=== PATIENT | male | born 1935 | race Caucasian/White ===

== ENCOUNTER → 2017-07-17 09:45 | Outpatient (CLI) | payer MEDICARE, SELFPAY ==
[2017-07-17 11:48] LABS: Hemoglobin A1c 7.1 % (4.2-6.3)
[2017-07-17 11:51] LABS: Creatinine, Urine (random) < 13.00 mg/dL (NO RANGE EST.); Microalbumin,Random Urine < 5.0 mg/L (NO RANGE EST.)
[2017-07-17 11:58] LABS: AST(SGOT) 43 U/L (15-37); Alanine Aminotransfer ALT/SGPT 61 U/L (16-61); Anion Gap 11 (5-15); BUN 21 mg/dL (7-18); BUN/Creat Ratio 15.3 RATIO (10-20); Calcium,Total 9.4 mg/dL (8.5-10.1); Chloride 102 mmol/L (98-107); Creatinine, Serum 1.37 mg/dL (0.70-1.30); EST Glomerular Filtration Rate 53 mL/min (>60); Est Glom Filt Rate - Afr Amer 64 mL/min (>60); Glucose 132 mg/dL (70-110); Potassium 3.9 mmol/L (3.5-5.1); Sodium Level 138 mmol/L (136-145)
== END ==
PROVIDERS: Family Provider Family Medicine; PCP Family Medicine; Visit Provider Internal Medicine Endocrinology, Diabetes & Metabolism
DX: E11.65 Type 2 diabetes mellitus with hyperglycemia (principal)
CPT/HCPCS: 36415; 80048; 82043; 82570; 83036; 84450; 84460

== ENCOUNTER → 2017-08-23 08:14 | Outpatient (CLI) | payer MEDICARE, SELFPAY ==
--- NOTE | 2017-08-23 08:25 | RAD_ITS ---
PROCEDURE: Fluoroscopic guided Hip Injection DATE: August 23, 2017. INDICATION: Male, 82 years old. Left hip pain. PHYSICIAN: Jon Waters M.D. MEDICATIONS: 6 mg of betamethasone and 3 cc of 1% lidocaine. 2% Lidocaine administered subcutaneously for local anesthesia. ACCESS SITE: Left hip. NEEDLE: 22-gauge spinal needle. FLUOROSCOPY TIME (if supplied): (0:45) minutes/seconds FINDINGS: The risks, benefits, and alternatives to the procedure were explained to the patient. The specific risks of bleeding, infection, and neurovascular injury were detailed and accepted. Witnessed informed consent was obtained. A 22-gauge spinal needle was positioned under radiographic fluoroscopic localization. Approximately 2 cc of Gastroview 300 instilled for localization purposes. Medication was then injected. The patient tolerated the procedure well without any immediate complications. The patient was placed supine with head elevated and returned to the floor in stable condition. RAD/Inj/Asp [place] Jt Should/Hip/Knee IMPRESSION: 1. Successful fluoroscopic guided hip injection. Electronically Signed: Jon Waters MD at 10:20 EST Tel [phone], Service support ,
== END ==
PROVIDERS: Family Provider Family Medicine; PCP Family Medicine; Visit Provider Specialist
DX: M16.12 Unilateral primary osteoarthritis, left hip (principal)
CPT/HCPCS: 20610; 77002; Q9967; J0702

== ENCOUNTER → 2017-09-07 08:56 | Outpatient (CLI) | payer MEDICARE, SELFPAY ==
[2017-09-07 10:33] LABS: ALB/GLOB Ratio 1.2 RATIO (0.9-2.4); AST(SGOT) 37 U/L (15-37); Alanine Aminotransfer ALT/SGPT 54 U/L (16-61); Albumin, Serum 3.8 g/dL (3.2-5.0); Alkaline Phosphatase 40 U/L (45-117); Anion Gap 7 (5-15); BUN 18 mg/dL (7-18); BUN/Creat Ratio 14.3 RATIO (10-20); Bilirubin, Direct 0.21 mg/dL (0.00-0.30); Calcium,Total 9.4 mg/dL (8.5-10.1); Chloride 103 mmol/L (98-107); Cholesterol 155 mg/dL (200); Creatinine, Serum 1.26 mg/dL (0.70-1.30); EST Glomerular Filtration Rate 59 mL/min (>60); Est Glom Filt Rate - Afr Amer 71 mL/min (>60); Globulin 3.2 g/dL (2.2-4.2); Glucose 99 mg/dL (74-106); High Density Lipoprotein 38 mg/dL; Sodium Level 139 mmol/L (136-145); Triglycerides 171 mg/dL; Very Low Density Lipoprotein 34 mg/dL (5-40)
== END ==
PROVIDERS: Family Provider Family Medicine; PCP Family Medicine; Visit Provider Physician Assistant Medical
DX: I10 Essential (primary) hypertension (principal); E78.5 Hyperlipidemia, unspecified; I25.10 Atherosclerotic heart disease of native coronary artery without angina pectoris
CPT/HCPCS: 36415; 80053; 80061; 82248

== ENCOUNTER → 2017-11-14 09:44 | Outpatient (CLI) | payer MEDICARE, SELFPAY ==
[2017-11-14 11:26] LABS: Hemoglobin A1c 7.1 % (4.2-6.3)
[2017-11-14 11:28] LABS: AST(SGOT) 38 U/L (15-37); Alanine Aminotransfer ALT/SGPT 45 U/L (16-61); Anion Gap 12 (5-15); BUN 22 mg/dL (7-18); BUN/Creat Ratio 16.1 RATIO (10-20); Calcium,Total 9.2 mg/dL (8.5-10.1); Chloride 104 mmol/L (98-107); Cholesterol 164 mg/dL (200); Creatinine, Serum 1.37 mg/dL (0.70-1.30); EST Glomerular Filtration Rate 53 mL/min (>60); Est Glom Filt Rate - Afr Amer 64 mL/min (>60); Glucose 106 mg/dL (74-106); High Density Lipoprotein 35 mg/dL; Potassium 4.1 mmol/L (3.5-5.1); Sodium Level 141 mmol/L (136-145); Triglycerides 260 mg/dL; Very Low Density Lipoprotein 52 mg/dL (5-40)
== END ==
PROVIDERS: Family Provider Family Medicine; PCP Family Medicine; Visit Provider Internal Medicine Endocrinology, Diabetes & Metabolism
DX: E11.65 Type 2 diabetes mellitus with hyperglycemia (principal); E78.2 Mixed hyperlipidemia
CPT/HCPCS: 36415; 80048; 80061; 83036; 84450; 84460

== ENCOUNTER → 2017-12-08 12:46 | Outpatient (CLI) | payer MEDICARE, SELFPAY | PROVIDERS: Family Provider Family Medicine; PCP Family Medicine; Visit Provider Internal Medicine Critical Care Medicine | DX: G47.33 Obstructive sleep apnea (adult) (pediatric) (principal) | CPT/HCPCS: 98960; G0463 ==

== ENCOUNTER 2018-01-08 18:44 | Emergency (ER) | payer MEDICARE, SELFPAY ==
[2018-01-08 18:45] VITALS: BP 164/96; PULSE 79; RESP 16; TEMP 36.6; O2SAT 96; BMI 40.3
--- NOTE | 2018-01-08 19:00 | ED.VISSUMM ---
- ER Visit Summary Date of Service: 01/08/18 Chief Complaint: [Injury right shoulder] History of Present Illness: The patient is a 82 M [presents the emergency department complaint of injury to the right shoulder that occurred earlier today when he was taking out the trash. Patient states that he lifted a trash bag into a container and immediately felt something give. Patient having a hard time lifting his arm up above his head now. Patient is right-hand dominant.] Physical Examination: [HEENT-PERRLA, EOMI. Cranial nerves II through XII grossly intact. TMs clear. Mucous membranes moist. No adenopathy. Cardiovascular-regular rate and rhythm without murmur or ectopy Lungs-clear to auscultation, chest wall stable without crepitus or subcu emphysema Abdomen-normoactive bowel sounds, soft, nontender, no rebound or rigidity, no peritoneal signs. Extremities-intact ?4, normal range of motion, normal pulses, atraumatic]. Right shoulder-no deformity noted. Patient has some mild diffuse tenderness over the anterior glenohumeral joint. Patient has pain with abduction and has discomfort attempting to resist adduction. Patient has pain with trying to resist internal rotation. He is neurovascular intact. Test Results: [X-rays of the right shoulder] show degenerative changes but no acute fractures or dislocations. Emergency Department Course and Treatment: Patient was given one Masterson in the emergency department and given a sling [] Treatment Plan: [Patient to follow-up with Dr. Gayle who he has seen in the past for orthopedics. Patient understands he may need further imaging such as possibly MRI to evaluate further] Disposition: [Discharged home in stable condition] Impression: [Right shoulder sprain-possible internal derangement] This note was generated with [employer] dictation software. It may contain incorrect words, spelling, and punctuation that were not noted in review of the chart prior to signing ED Disposition - Plan for ED Patient: Chief Complaint: Upper Extremity Injury Referrals: Soham Jones III, MD [Primary Care Provider] -
--- NOTE | 2018-01-08 19:05 | RAD_ITS ---
STUDY: X-RAY - RIGHT SHOULDER REASON FOR EXAM: Male, 82 years old. Right shoulder pain TECHNIQUE: 4 view(s) of the shoulder. COMPARISON: None. FINDINGS: There is mild degenerative arthrosis of the glenohumeral articulation. There is degenerative arthrosis of the acromioclavicular joint without inferior osseous spur formation. Normal acromion. Normal humeral head and visualized proximal humerus. The soft tissue structures are unremarkable. Normal visualized pulmonary apex. RAD/Shoulder min 2 Views IMPRESSION: Degenerative changes without acute findings Electronically Signed: Omer Coronel DO at 19:21 EDT Tel , Service support ,
[2018-01-08] MEDS: HYDROcodone Bitartrate/Apap 5/325 Tablet PO (19:12)
--- NOTE | 2018-01-08 19:33 | ED.DEP ---
ED Disposition - Plan for ED Patient: Chief Complaint: Upper Extremity Injury Instructions: ED Sprain Shoulder Prescriptions: Hydrocodone/Acetaminophen [Abington 5-325 Tablet] 1 - 2 ea PO 4X/DAY PRN PRN 3 Days #12 tab PRN Reason: Pain Referrals: Soham Jones III, MD [Primary Care Provider] - Capo Gayle MD [STAFF PHYSICIAN] - 3-5 Days
[2018-01-08 19:59] VITALS: BP 159/100; PULSE 74; RESP 16; O2SAT 95
== END 2018-01-08 20:00 | disposition home or self-care (01) ==
LOC: ED 19:07
PROVIDERS: Emergency Provider Emergency Medicine; Family Provider Family Medicine; PCP Family Medicine
DX: S43.401A Unspecified sprain of right shoulder joint, initial encounter (principal); X50.9XXA Other and unspecified overexertion or strenuous movements or postures, initial encounter; Y93.9 Activity, unspecified; Y92.9 Unspecified place or not applicable; I25.10 Atherosclerotic heart disease of native coronary artery without angina pectoris; E11.9 Type 2 diabetes mellitus without complications; I10 Essential (primary) hypertension; E78.00 Pure hypercholesterolemia, unspecified; Z79.82 Long term (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 of aspirin; Z79.4 Long term (current) use of insulin; Z79.84 Long term (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 of oral hypoglycemic drugs; Z79.899 Other long term (current) drug therapy
CPT/HCPCS: 73030; 99283

== ENCOUNTER → 2018-03-01 09:19 | Outpatient (CLI) | payer MEDICARE, SELFPAY ==
[2018-03-01 10:16] LABS: Hemoglobin A1c 6.3 % (4.2-6.3)
[2018-03-01 10:36] LABS: AST(SGOT) 22 U/L (15-37); Alanine Aminotransfer ALT/SGPT 39 U/L (16-61); Anion Gap 8 (5-15); BUN 26 mg/dL (7-18); Calcium,Total 9.7 mg/dL (8.5-10.1); Chloride 103 mmol/L (98-107); Creatinine, Serum 1.53 mg/dL (0.70-1.30); EST Glomerular Filtration Rate 47 mL/min (>60); Est Glom Filt Rate - Afr Amer 57 mL/min (>60); Glucose 194 mg/dL (74-106); Potassium 4.6 mmol/L (3.5-5.1); Sodium Level 139 mmol/L (136-145)
== END ==
PROVIDERS: Family Provider Family Medicine; PCP Family Medicine; Visit Provider Internal Medicine Endocrinology, Diabetes & Metabolism
DX: E11.65 Type 2 diabetes mellitus with hyperglycemia (principal)
CPT/HCPCS: 36415; 80048; 83036; 84450; 84460

== ENCOUNTER → 2018-03-05 09:21 | Outpatient (CLI) | payer MEDICARE, SELFPAY ==
[2018-03-05 09:59] LABS: Anion Gap 10 (5-15); BUN 19 mg/dL (7-18); BUN/Creat Ratio 13.9 RATIO (10-20); Calcium,Total 9.4 mg/dL (8.5-10.1); Chloride 104 mmol/L (98-107); Creatinine, Serum 1.37 mg/dL (0.70-1.30); EST Glomerular Filtration Rate 53 mL/min (>60); Est Glom Filt Rate - Afr Amer 64 mL/min (>60); Glucose 135 mg/dL (74-106); Potassium 4.1 mmol/L (3.5-5.1); Sodium Level 139 mmol/L (136-145)
[2018-03-05 10:07] LABS: BNP,B-Type NATRIURETIC PEPTIDE 52.4 pg/mL (0-100)
== END ==
PROVIDERS: Family Provider Family Medicine; PCP Family Medicine; Visit Provider Nurse Practitioner Acute Care
DX: R06.00 Dyspnea, unspecified (principal); R06.02 Shortness of breath
CPT/HCPCS: 36415; 80048; 83880

== ENCOUNTER → 2018-03-13 12:28 | Outpatient (CLI) | payer MEDICARE, SELFPAY ==
--- NOTE | 2018-03-13 12:47 | ECHOD_ITS ---
Reason For Study: Dyspnea/SOB Procedure This was a 2D Doppler, Color Flow transthoracic echocardiogram. The study was technically difficult. Exam performed in department. Left Ventricle Normal LV size. Left ventricular systolic function is normal. The estimated ejection fraction is 55 %. Diastolic function is indeterminate. No regional wall motion abnormalities noted. Right Ventricle Normal RV size. Normal systolic function. Atria The left atrium is mildly enlarged. Normal right atrium. No doppler evidence for ASD. Mitral Valve There is no mitral annular calcification. Normal mitral valve. Trivial mitral valve insufficiency. Tricuspid Valve Normal tricuspid valve. Trivial tricuspid valve insufficiency. Unable to estimate RV systolic pressure/pulmonary artery pressure due to technically difficult study. Aortic Valve Trisinus/trileaflet aortic valve. Mild focal aortic valve calcification. Pulmonic Valve The pulmonic valve is not well visualized. Great Vessels Normal sized aortic root. Pericardium/Pleural No pericardial effusion. MMode/2D Measurements & Calculations LVIDd: 4.9 cm IVSd: 1.2 cm LVOT diam: 2.0 cm LVIDs: 3.4 cm LVPWd: 0.92 cm LVOT area: 3.2 cm2 RVDd: 3.5 cm FS: 31.3 % Ao root diam: 3.1 cm LAV(MOD-bp): 56.3 ml LA A4 area: 20.9 cm2 LA dimension: 4.1 cm LAV(MOD-bp) Indexed: 26.5 ml/m2 LAV(MOD-sp2): 42.8 ml LAV(MOD-sp4): 60.5 ml RA A4 area: 14.5 cm2 Time Measurements MV dec time: 0.16 sec Doppler Measurements & Calculations MV E max geo: 58.3 cm/sec Lat Peak E' Geo: 6.7 cm/sec Med Peak E' Geo: 5.3 cm/sec MV A max geo: 78.0 cm/sec E/E' lat: 8.7 E/E' med: 11.0 MV E/A: 0.75 MV V2 max: 74.4 cm/sec MV P1/2t max geo: 59.9 cm/sec Ao V2 max: 105.9 cm/sec MV max P.2 mmHg MV P1/2t: 64.2 msec Ao max P.5 mmHg MV V2 mean: 37.7 cm/sec MV dec slope: 273.4 cm/sec2 Ao V2 mean: 70.4 cm/sec MV mean P.68 mmHg MVA(P1/2t): 3.4 cm2 Ao mean P.3 mmHg MV V2 VTI: 20.1 cm Ao V2 VTI: 21.3 cm MVA(VTI): 2.6 cm2 CANDY(I,D): 2.4 cm2 CANDY(V,D): 2.6 cm2 LV V1 max: 86.0 cm/sec SV(LVOT): 51.2 ml PA V2 max: 60.9 cm/sec LV V1 max P.0 mmHg LV V1 mean P.3 mmHg LV V1 mean: 52.6 cm/sec LV V1 VTI: 16.1 cm Interpretation Summary The study was technically difficult. Left ventricular systolic function is normal. The estimated ejection fraction is 55 %. The left atrium is mildly enlarged. Trivial mitral valve insufficiency. Trivial tricuspid valve insufficiency. Mild focal aortic valve calcification. Unable to estimate RV systolic pressure/pulmonary artery pressure due to technically difficult study. Diastolic function is indeterminate. Ordering Physician: Lela Sherman Referring Physician: Lela Sherman Performed By: William Kelly RCS
[2018-03-13 12:49] VITALS: PULSE 103; PULSE 108; PULSE 111; PULSE 113; PULSE 121; PULSE 78; PULSE 79; PULSE 93; O2SAT 92; O2SAT 93; O2SAT 94; O2SAT 96; O2SAT 97
--- NOTE | 2018-03-13 15:41 | PCM.PSN.6M ---
PSN 6 Minute Walk Test - 6 Minute Walk Test 6 Minute Walk Test: 6 Minute Walk Test PSN:6-Minute Walk Test Start: 03/13/18 12:49 Freq: Status: Active Protocol: RESP.6MINW Document 03/13/18 12:49 JANNETTE (Rec: 03/13/18 12:51 JANNETTE [id number]) 6 Minute Walk Test Date Performed 03/13/18 Time Performed 12:35 Height 5 ft 4 in Weight: 108.862 kg Weight in Pounds 240.[address]: Lela Sherman Assistive device used: None Pre-test Oxygen Delivery Method Room Air Pulse Ox (%) 97 Pulse Rate (60-100 beats/min) 79 Dyspnea Janae Scale (0-10) 1 Exertion Janae Scale (6-20) 6 1st minute Oxygen Delivery Method Room Air Pulse Ox (%) 96 Pulse Rate (60-100 beats/min) 93 2nd minute Oxygen Delivery Method Room Air Pulse Ox (%) 94 Pulse Rate (60-100 beats/min) 103 H 3rd minute Oxygen Delivery Method Room Air Pulse Ox (%) 93 Pulse Rate (60-100 beats/min) 108 H 4th minute Oxygen Delivery Method Room Air Pulse Ox (%) 94 Pulse Rate (60-100 beats/min) 113 H 5th minute Oxygen Delivery Method Room Air Pulse Ox (%) 93 Pulse Rate (60-100 beats/min) 111 H 6th minute Oxygen Delivery Method Room Air Pulse Ox (%) 92 Pulse Rate (60-100 beats/min) 121 H Dyspnea Janae Scale (0-10) 5 Exertion Janae Scale (6-20) 14 Post-test Oxygen Delivery Method Room Air Pulse Ox (%) 97 Pulse Rate (60-100 beats/min) 78 Full Laps Walked 13 Partial Lap, Number of Tiles Walked 30 Total Distance Walked (ft) 797 - Interpretation Interpretation: The patient was able to ambulate 797 feet over the course of 6 minutes on room air with no assistive devices or breaks. The patient did have significant desaturation from a baseline of 97%, to as low as 92% with ambulation. Patient did have significant tachycardia with a peak heart rate of 121 bpm. These findings are consistent with a cardiovascular limitation exercise tolerance. - Recommendations Recommendations: No supplemental oxygen is indicated at this time. However, patient should be followed closely given level of desaturation.
== END ==
PROVIDERS: Family Provider Family Medicine; PCP Family Medicine; Visit Provider Nurse Practitioner Acute Care
DX: R06.02 Shortness of breath (principal); R06.00 Dyspnea, unspecified
CPT/HCPCS: 93306; 94618

== ENCOUNTER 2018-03-14 14:00 | Outpatient (RCR) | payer MEDICARE, SELFPAY ==
--- NOTE | 2018-02-13 17:11 | HP.PTEVAL_ITS ---
Patient's Visit Information DARREN REDDY is a 82 year old M referred to Physical Therapy by Jewel Carmona with a diagnosis of back and hip pain. Date of Evaluation: 02/13/18 Physical Therapist: Maureen Retana - Visit Plan Frequency: 2x /Week Duration: 4 Weeks Plan: 2X/ week for 4 weeks - Subjective Subjective: Pt reports that he has R and L hip problems and will need replaced. He did get a shot in the L hip back in August and R hip 3 weeks ago and the pain has gotten better. hoping that AT will help. Pt got to the place that he could not lift his L leg and now only the R leg bothers him. Stairs: he uses a railing and has to be careful and is able to alternate. Any extra walking bothers him. He can not get out of a chair to get out of a chair. He has a messed up shoulder as well and needs a shoulder replacement. He is able to sleep on his L side. He is also seeing Dr Gayle. - Pain R hip pain Pain Intensity (Out of 10): 5 L hip pain Pain Intensity (Out of 10): 2 - Objective Gait: Walks with WBOS and short stride. Able to heel and toe raise holding onto the hallway railing. LE MMT: hip flex B 4-/5, Knee ext B 4/5, Knee flex B 4/5, Pt is able to do a full ROM bridge. Sit to stand: able to stand without UE support and suprised himself that he could do it. Stairs: Able to go up stairs with 1 rail recip (weakness present on the r) and descends stairs with 1 rail leading with the R and 2 feet to a stair. Hip flexion AROM to 90 degrees. - Goals Goal 1:: I HEP Goal Time Frame: 4-6 Weeks Goal 2:: Be able to go up and down stairs recip with 1 rail Goal Time Frame: 4-6 Weeks Goal 3:: Decrease B hip pain to 1/10 with ADL's Goal Time Frame: 4-6 Weeks - Rehabilitation Potential Rehabilitation Potential: Good - Anticipated Interventions Patient/Client Instruction: Educate patient on: Plan of Care For the Purpose of:: To decrease pain, To increase ROM, To improve nutrient delivery to tissue, To improve muscle performance and motor function, To improve ability to perform ADL's, To increase tolerance to activity/condition/ position, To improve performance and independence with ADL's, To improve gait and locomotor functions, To increase flexibility/ROM Therapeutic Exercise to Include: Strength training, Balance training, Postural training, Flexibilty training, Gait and locomotor training, Active ROM, Dynamic Lumbar Stabilization For the Purpose of:: To decrease pain, To increase ROM, To improve muscle performance and motor function, To improve ability to perform ADL's, To increase tolerance to activity/condition/position, To improve ability of physical actions for home/community/work/leisure, To improve gait and locomotor functions, To improve health of tissue, To increase flexibility/ROM, To improve balance Functional Training to Include: Gait training Comments: stairs For the Purpose of:: To improve gait and locomotor functions, To improve safety with gait Thank you for the opportunity to evaluate your patient. For Medicare and Medicare HMO plans, please review the plan of care and approve it. It will need to be FAXED BACK to us at [phone] for Medicare purposes. Please let me know if there are questions or concerns regarding this plan of care. Physician Signature: Date:
--- NOTE | 2018-03-14 14:22 | HP.PTDCSUM ---
HP - PT D/C Summary It has been my pleasure to treat DARREN REDDY under orders from Jewel Carmona, for the diagnosis of back and hip pain for a total of 9 visit(s). Discharge Date: Please see the following information for a summary of their discharge status. - Subjective Subjective: Right hip pain is still pretty bad- helps when in the water but not after he gets back out. Worst: 6/10 Agg: always hurts Eases: take pain medication. Plans to make an apt with Dr. Gayle. He is planning to have a total hip replacement on the right. The pain limits his ability to perform most of his ADL's. - Pain R hip pain Pain Intensity (Out of 10): 6 L hip pain Pain Intensity (Out of 10): 0 Lumbar Spine Pain Intensity (Out of 10): 6 - Objective Objective/Function: Posture: FH, RS, Increased kyphosis- Gait: Walks with WBOS and short stride slow selvin. Able to heel and toe raise with UE support. LE MMT: hip flex B 4/5, Knee ext B 4/5, Knee flex B 4/5, Pt is able to do a full ROM bridge. Sit to stand: able to stand without UE support Stairs: Able to go up stairs with 1 rail recip (weakness present on the r) and descends stairs with 1 rail leading with the R and 2 feet to a stair. Flex: HS: severe restriction. - Goals Goal 1:: I HEP Goal Progress: Progressing Goal 2:: Be able to go up and down stairs recip with 1 rail Goal Progress: Not Progressing Goal 3:: Decrease B hip pain to 1/10 with ADL's Goal Progress: Not Progressing - Plan Plan: Discharge- return to MD for further evaluation - D/C Information If there are questions or concerns regarding this patient's physical therapy, please feel free to call me at [phone]. Thank you for the referral of this patient. Sincerely, Emily Jang
== END 2018-03-14 14:51 | disposition home or self-care (01) ==
LOC: PT 14:00
PROVIDERS: Family Provider Family Medicine; PCP Family Medicine; Visit Provider Anesthesiology Pain Medicine
DX: R06.00 Dyspnea, unspecified (principal)
CPT/HCPCS: 36415; 80048; 83880; 97113; 97161; 97164

== ENCOUNTER → 2018-04-09 08:29 | Outpatient (CLI) | payer MEDICARE, SELFPAY ==
[2018-04-09 10:46] LABS: AST(SGOT) 31 U/L (15-37); Alanine Aminotransfer ALT/SGPT 49 U/L (16-61); Albumin, Serum 3.8 g/dL (3.2-5.0); Alkaline Phosphatase 35 U/L (45-117); Bilirubin, Direct 0.16 mg/dL (0.00-0.30); Cholesterol 161 mg/dL (200); Globulin 3.3 g/dL (2.2-4.2); High Density Lipoprotein 35 mg/dL; Protein, Total 7.1 g/dL (6.4-8.2); Triglycerides 279 mg/dL; Very Low Density Lipoprotein 56 mg/dL (5-40)
== END ==
PROVIDERS: Family Provider Family Medicine; PCP Family Medicine; Referring Provider Physician Assistant Medical; Visit Provider Physician Assistant Medical
DX: E78.5 Hyperlipidemia, unspecified (principal)
CPT/HCPCS: 36415; 80061; 80076

== ENCOUNTER → 2018-05-21 06:32 | Outpatient (CLI) | payer MEDICARE, SELFPAY ==
[2018-05-14 15:59] VITALS: BMI 41.7
[2018-05-21 09:33] LABS: Hematocrit 41.5 % (40-54); Hemoglobin 13.3 g/dl (13.0-16.5); Mean Corpuscular Hgb 29.6 pg (27.0-32.0); Mean Corpuscular Volume 92.4 fL (80-94); Platelet Count 188 K/mm3 (150-450); RBC Distribution Width CV 13.8 % (11.6-14.6); RBC Distribution Width SD 46.6 fl (35.1-43.9); Red Blood Count 4.49 M/mm3 (4.6-6.2); White Blood Count 4.6 K/mm3 (4.4-11.0)
[2018-05-21 09:35] LABS: Scan Indicated on CBC? Y/N NO
[2018-05-21 09:59] LABS: Anion Gap 10 (5-15); BUN 27 mg/dL (7-18); BUN/Creat Ratio 17.8 RATIO (10-20); Calcium,Total 9.3 mg/dL (8.5-10.1); Chloride 105 mmol/L (98-107); Creatinine, Serum 1.52 mg/dL (0.70-1.30); EST Glomerular Filtration Rate 47 mL/min (>60); Est Glom Filt Rate - Afr Amer 57 mL/min (>60); Glucose 184 mg/dL (74-106); Potassium 4.5 mmol/L (3.5-5.1); Sodium Level 138 mmol/L (136-145)
[2018-05-21 10:08] LABS: BNP,B-Type NATRIURETIC PEPTIDE 35.5 pg/mL (0-100)
--- OUTSIDE RECORDS SUMMARY | 2018-07-14 04:27 | XMS RPT_ITS ---
:1935 Author Organization OHIP Support Name Relationship Address Phone R Unavailable Unavailable Unavailable SWARTZENTRUBER, J LUIS Unavailable [address] + [place] [address] R Unavailable Unavailable Unavailable SWARTZENTRUBER, J LUIS Unavailable [address] + [place] [address] R Unavailable Unavailable Unavailable SWARTZENTRUBER, J LUIS Unavailable [address] + [place] [address] R Unavailable Unavailable Unavailable SWARTZENTRUBER, J LUIS Unavailable [address] + [place] [address] R Unavailable Unavailable Unavailable SWARTZENTRUBER, J LUIS Unavailable [address] + [place] [address] R Unavailable Unavailable Unavailable SWARTZENTRUBER, J LUIS Unavailable [address] + [place] [address] R Unavailable Unavailable Unavailable SWARTZENTRUBER, J LUIS Unavailable [address] + [place] [address] R Unavailable Unavailable Unavailable SWARTZENTRUBER, J LUIS Unavailable [address] + [place] [address] R Unavailable Unavailable Unavailable SWARTZENTRUBER, J LUIS Unavailable [address] + [place] [address] R Unavailable Unavailable Unavailable SWARTZENTRUBER, J LUIS Unavailable [address] + [place] [address] R Unavailable Unavailable Unavailable SWARTZENTRUBER, J LUIS Unavailable [address] + [place] [address] R Unavailable Unavailable Unavailable SWARTZENTRUBER, J LUIS Unavailable [address] + [place] [address] R Unavailable Unavailable Unavailable SWARTZENTRUBER, J LUIS Unavailable [address] + [place] [address] R Unavailable Unavailable Unavailable SWARTZENTRUBER J LUIS Unavailable [address] + [place] [address] R Unavailable Unavailable Unavailable SWARTZENTRUBER, J LUIS Unavailable [address] + [place] [address] R Unavailable Unavailable Unavailable SWARTZENTRUBER J LUIS Unavailable [address] + [place] [address] R Unavailable Unavailable Unavailable SWARTZENTRUBER, J LUIS Unavailable [address] + [place] [address] R Unavailable Unavailable Unavailable SWARTZENTRUBER, J LUIS Unavailable [address] + [place] [address] R Unavailable Unavailable Unavailable SWARTZENTRUBER, J LUIS Unavailable [address] + [place] [address] R Unavailable Unavailable Unavailable SWARTZENTRUBER, J LUIS Unavailable [address] + [place] [address] R Unavailable Unavailable Unavailable SWARTZENTRUBER, J LUIS Unavailable [address] + [place] [address] R Unavailable Unavailable Unavailable SWARTZENTRUBER J LUIS Unavailable [address] + [place] [address] R Unavailable Unavailable Unavailable SWARTZENTRUBER, J LUIS Unavailable [address] + [place] [address] R Unavailable Unavailable Unavailable SWARTZENTRUBER J LUIS Unavailable [address] + [place] [address] R Unavailable Unavailable Unavailable SWARTZENTRUBER, J LUIS Unavailable [address] + [place] [address] Care Team Providers Name Role Phone NATHANAEL JONES III Attending Unavailable CEBUL IIINATHANAEL Referring Unavailable CEBUL IIINATHANAEL Referring Unavailable ALEX ELLISON Referring Unavailable CEBUL IIINATHANAEL Attending Unavailable Libia SINGH (PA-C) Attending Unavailable Amreico Nazario D.O. Attending Unavailable CebuNathanael marley III Referring Unavailable Americo Nazario D.O. Attending Unavailable Americo Nazario D.O. Referring Unavailable Cebul III, Nathanael Primary Care Unavailable Olivia Jenkins Attending Unavailable Olivia Jenkins Referring Unavailable Cebul III, Nathanael Primary Care Unavailable Yobani Durbin Attending Unavailable Lela Sherman Referring Unavailable Lela Sherman Attending Unavailable Cebul III, Nathanael Referring Unavailable Lela Sherman Attending Unavailable Cebul III, Nathanael Primary Care Unavailable Capo Gayle Attending Unavailable Capo Gayle Referring Unavailable Cebul III, Nathanael Primary Care Unavailable Audelia Espinoza Attending Unavailable Cebul III, Nathanael Referring Unavailable Cebul III, Nathanael Primary Care Unavailable Audelia Espinoza Attending Unavailable Audelia Espinoza Referring Unavailable Cebul III, Nathanael Primary Care Unavailable Olivia Jenkins Attending Unavailable Olivia Jenkins Referring Unavailable Cebul III, Nathanael Primary Care Unavailable Rachael Morales Attending Unavailable Americo Nazario D.O. Attending Unavailable Cebul III, Nathanael Referring Unavailable Americo Nazario D.O. Attending Unavailable Cebul III, Nathanael Primary Care Unavailable Cebul III, Nathanael Primary Care Unavailable Pat Courtney Attending Unavailable Jewel Carmona Attending Unavailable Jewel Carmona Referring Unavailable Cebul III, Nathanael Primary Care Unavailable Olivia Jenkins Attending Unavailable Olivia Jenkins Referring Unavailable Cebul III, Nathanael Primary Care Unavailable Lela Sherman Attending Unavailable Cebul III, Nathanael Referring Unavailable Cebul III, Nathanael Primary Care Unavailable Lela Sherman Attending Unavailable Sherman, Lela Referring Unavailable Cebul III, Nathanael Primary Care Unavailable Lela Sherman Attending Unavailable Lela Sherman Referring Unavailable Cebul III, Nathanael Primary Care Unavailable Junior Jurado Attending Unavailable Lela Sherman Referring Unavailable Audelia Espinoza Attending Unavailable Audelia Espinoza Referring Unavailable Cebul III, Nathanael Primary Care Unavailable David Ashton Attending Unavailable Cebul III, Nathanael Referring Unavailable Audelia Espinoza Attending Unavailable Cebul III, Nathanael Referring Unavailable Audelia Espinoza Attending Unavailable Audelia Espinoza Referring Unavailable Cebul III, Nathanael Primary Care Unavailable Zach Ashtonril Consulting Unavailable Cebul III, Nathanael Primary Care Unavailable Geo Cristina Attending Unavailable PROBLEMS PROBLEMS DATE TYPE CONDITION / CODE ATTENDING STATUS SOURCE 06/05/2018 Unknown R06.02 - Shortness of Sherman, Active [facility] breath / [facility] R06.02(ICD-10) Hospital Repository 05/15/2018 Unknown I25.10 - Espinoza, Active [facility] Atherosclerotic heart Audelia [facility] disease of [facility] coronary artery Repository without angina pectoris / I25.10(ICD-10) 05/15/2018 Unknown R07.9 - Chest pain, Olga, Active [facility] unspecified / Audelia [facility] R07.9(ICD-10) Hospital Repository 04/19/2018 Unknown I10 - Essential Poli, David Active [facility] (primary) Community hypertension / Hospital I10(ICD-10) Repository 04/19/2018 Unknown Z98.61 - Coronary Poli, Lotus Active [facility] angioplasty status / Community Z98.61(ICD-10) Hospital Repository 04/19/2018 Unknown E78.00 - Pure Poli, Advid Active [facility] hypercholesterolemia, Community unspecified / Hospital E78.00(ICD-10) Repository 03/14/2018 Unknown R06.00 - Dyspnea, Basali, Ayman Active [facility] unspecified / Community R06.00(ICD-10) Hospital Repository 03/01/2018 Unknown E11.65 - Type 2 lOivia Jenkins Active [facility] diabetes mellitus Community with hyperglycemia / Hospital E11.65(ICD-10) Repository 01/08/2018 Unknown S43.409A - UngPat moody Active [facility] Unspecified sprain of Community unspecified shoulder Hospital joint, initial Repository encounter / S43.409A(ICD-10) 11/14/2017 Unknown E78.2 - Mixed Olivia Jenkins Active [facility] hyperlipidemia / Community E78.2(ICD-10) Hospital Repository 09/25/2017 Active Cough / R05(ICD-10) NA Active [facility] [place] Repository 09/07/2017 Unknown E78.5 - Espinoza, Active [facility] Hyperlipidemia, Audelia [facility] unspecified / Hospital E78.5(ICD-10) Repository 07/31/2017 Active Unilateral primary NA Active [facility] osteoarthritis, Clinic Main unspecified hip / [place] M16.10(ICD-10) Repository 07/31/2017 Active Impingement syndrome NA Active [facility] of right shoulder / Clinic Main M75.41(ICD-10) [place] Repository PROCEDURES PROCEDURES No Procedure Records FoundRESULTS RESULTS PROGRESS Observed: 06/05/2018 Status: COMPLETED Source: [place] 11:22 AM [facility] [place] REPOSITORY HNO ID: [id number] Author: Libia Billingsley (Filiberto) Francisco Service: (none) Author Type: Physician Appointment Scheduler Type: Progress Notes Filed: 06/05/2018 12:39 PM Note Text: 82 year old male with c/o bruising on left upper arm and medial elbow. Picking up keys off car floor board, fel something snap, immediate pain. Concerned about appearance. Able to move arm without difficulty. Still has strength. Taking Tramadol from . 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 07/07/2014 - Calculus of kidney - Controlled type 2 diabetes mellitus with stage 3 chronic kidney disease, without long-term current use of insulin (HCC) 03/26/2018 - Diaphragmatic hernia without mention of obstruction or gangrene - Diverticulitis of colon (without mention of hemorrhage)(562.11) - Esophageal reflux - Essential hypertension, benign 01/28/2014 - Family history of colon cancer in mother 12/22/2014 - Family history of malignant neoplasm of gastrointestinal tract - GERD (gastroesophageal reflux disease) 04/19/2010 - History of left heart catheterization 06/30/2015 [facility] - see scanned documents - Hyperlipidemia LDL goal < 100 04/26/2011 - Hypothyroidism 08/21/2010 - Lumbago - Lumbar disc disease with radiculopathy 10/09/2013 - Morbid obesity (HCC) 04/23/2012 - DANYELL (obstructive sleep apnea) - Osteoarthritis of hip 02/16/2010 - Other diseases of lung, not elsewhere classified PULMONARY NODULE - Pure hypercholesterolemia - S/P PTCA (percutaneous transluminal coronary angioplasty) - Snoring - Unspecified asthma(493.90) - Unspecified constipation - Unspecified hemorrhoids without mention of complication - Vitamin D deficiency 07/05/2013 PAST SURGICAL HISTORY Procedure Laterality Date - COLONOSCOP W/ OR W/O [facility] SPEC 07/30/03 Colonoscopy - COLONOSCOP W/ OR W/O [facility] SPEC 10/28/08 - COLONOSCOP W/ OR W/O [facility] SPEC 01/29/15 Colonoscopy - ECHO 06/24/2015 [facility] - see scanned documents - EGD W/O OR W/BRUSH/WASH 09/27/2006 EGD - EGD W/O OR W/BRUSH/WASH 04/27/2010 EGD - EGD W/O OR W/BRUSH/WASH 04/15/16 EGD - LAPAROSCOPY, SURGICAL, APPENDECTOMY 05/02/16 - POLYSOMNOGRAM 06/2001 - PULMONARY FUNCTION TEST 10/19/02 - REPAIR INCIS HERNIA W MESH 03/26/07 - REPAIR INCISIONAL HERNIA,REDUCIBLE 03/26/07 - STENT PLACEMENT maker Social History Marital status: Spouse name: J Luis Years of education: Number of children: 6 Occupational History Occupation Employer Comment RETIRED [employer] RETIRED [employer] Social History Main Topics Smoking status: Former Smoker Packs/day: 1.00 Years: 5.00 Types: Cigarettes Quit date: 10/17/1964 Smokeless tobacco: Never Used Alcohol use: No Drug use: No ACTIVE PROBLEM LIST Esophageal Reflux Asthma Calculus of Kidney Unspecified Chronic Liver Disease Without Mention of Alcohol Hypertrophy of Prostate With Urinary Obstruction and Other Lower Urinary Tract Symptoms (Luts) 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 Gerd (Gastroesophageal Reflux Disease) Diaphragmatic hernia without mention of obstructio Hypothyroidism Hyperlipidemia With Target Ldl Less Than 100 Morbid Obesity (Hcc) Vitamin D Deficiency Lumbar Disc Disease With Radiculopathy Essential hypertension, benign Bph (Benign Prostatic Hypertrophy) With Urinary Retention Family History of Colon Cancer in Mother Iron Deficiency Anemia Secondary to Inadequate Dietary Iron Intake Elevated Liver Function Tests Controlled Type 2 Diabetes Mellitus With Stage 3 Chronic Kidney Disease, Without Long-Term Current Use of Insulin (Hcc) Current Outpatient Prescriptions: aspirin, enteric coated (ASPIRIN, ENTERIC COATED) 81 mg EC tablet Take 81 mg by mouth once daily. Disp: Rfl: Cholecalciferol, Vitamin D3, (VITAMIN D-3) 2,000 unit cap Take 1 tablet by mouth once daily. Disp: Rfl: clopidogrel (PLAVIX) 75 mg tablet Take 75 mg by mouth once daily. Disp: Rfl: finasteride (PROSCAR) 5 mg tablet Take 5 mg by mouth once daily. Disp: Rfl: furosemide (LASIX) 40 mg tablet Take 40 mg by mouth once daily. Disp: Rfl: insulin 70/30 NPH/regular units/mL (HUMULIN 70/30, NOVOLIN 70/30) 52 units SQ ac breakfast and 38 units SQ ac supper (Patient taking differently: 50 units SQ ac breakfast and 40 units SQ ac supper ) Disp: Rfl: 0 levothyroxine (SYNTHROID) 50 mcg tablet Take 1 tablet by mouth once daily. Disp: 90 tablet Rfl: 4 losartan (COZAAR) 50 mg tablet Take 1 tablet by mouth once daily. Disp: Rfl: 0 metFORMIN (GLUCOPHAGE) 500 mg tablet Take 2 tablets by mouth twice daily with meals. Disp: Rfl: naproxen (NAPROSYN) 500 mg tablet Take 1 tablet by mouth twice daily as needed for Pain. Take with food. Disp: 60 tablet Rfl: [address] (PROTONIX) 40 mg tablet TAKE ONE TABLET BY MOUTH ONCE DAILY Disp: 90 tablet Rfl: 1 pravastatin (PRAVACHOL) 20 mg tablet Take 1 tablet by mouth once daily. Disp: Rfl: 0 tamsulosin ER (FLOMAX) 0.4 mg cp24 Take 1 capsule by mouth daily at bedtime. (Patient not taking: Reported on 03/26/2018 ) Disp: 30 capsule Rfl: 1 No current facility-administered medications for this visit. BP CONTROLLED (<130/80) due on 08/20/1955 DTAP,TDAP,TD(1 - Tdap) due on 11/18/2005 URINE ALBUMIN:CREATININE RATIO due on 06/30/2017 SERUM CREATININE due on 03/29/2018 Component Latest Ref Rng AND Units 11/14/2017 03/01/2018 05/21/2018 Glucose 74 - 106 MG/DL 106 194 (A) 184 (A) Sodium 136 - 145 MEQ/L 141 139 138 Potassium 3.5 - 5.1 MEQ/L 4.1 4.6 4.5 Chloride 98 - 107 MEQ/L 104 103 105 BICARBONATE 28.0 23.0 Anion Gap 12 8 10 Urea Nitrogen 6 - 20 mg/dL 26 (A) 27 (A) Creatinine 0.6 - 1.3 MG/DL 1.37 (A) 1.53 (A) 1.52 (A) GFR mL/MIN 53 47 47 GFR AFR AMER mL/MIN 64 57 57 Calcium 8.8 - 10.5 MG/DL 9.2 9.7 9.3 9/22/17 a1c 7.2% EXAM: BP 110/80 (BP Site: Right Arm, BP Position: Sitting, BP Cuff Size: Large Adult) Pulse 80 Temp 36.1 ?C (97 ?F) Resp 28 Wt 110.7 kg (244 lb) BMI 43.22 kg/m? Pleasant obese in no acute distress. Alert and oriented all spheres. Normal affect and cognition. Speech normal. No deficits to learning or comprehension. Skin warm, dry, pink to lips and nailbeds. Normal turgor. Respirations regular and unlabored. Left upper arm with dark purplish black over most of anterior mid upper arm and medial elbow. Tender in upper arm over biceps. + bulge with resisted flexion. Good resistance strength on biceps. Pain with resistance to pronation. Extrem: no clubbing, cyanosis, edema. Extremities are warm and pink with prompt capillary refill. ASSESSMENT/PLAN: 1. Rupture long head biceps tendon, left, initial encounter - ICD9: 840.8, ICD10: S46.112A Ice, rest. Recheck in 5-7 days. May continue tylenol and/ or tramadol as needed 2. Stage 3 chronic renal impairment associated with type 2 diabetes mellitus (HCC) - ICD9: 250.40, 585.3, ICD10: E11.22, N18.3 worsening control - Discussed diabetic education issues of avoiding NSIADS with patient. Current on Mobic. Should discuss with ortho 3. Controlled type 2 diabetes mellitus with stage 3 chronic kidney disease, without long-term current use of insulin (HCC) - ICD9: 250.40, 585.3, ICD10: E11.22, N18.3 F/u 1 week as needed FILIBERTO Keller Observed: 06/05/2018 Status: COMPLETED Source: [place] 11:00 AM [facility] REPOSITORY [facility] OLMAN REDDY ([id number]) 1935 M Date Time Provider Department 06/05/18 11:00 AM Libia SINGH (FILIBERTO) RUEL During your visit today, we recorded the following information about you: Temperature Pulse Respiration Blood pressure 97 degrees 80/minute 28/minute 110/80 Weight 110.7 kg M Carole Singh PA-C 06/05/2018 12:39 PM Signed 82 year old male with c/o bruising on left upper arm and medial elbow. Picking up keys off car floor board, fel something snap, immediate pain. Concerned about appearance. Able to move arm without difficulty. Still has strength. Taking Tramadol from . 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 07/07/2014 - Calculus of kidney - Controlled type 2 diabetes mellitus with stage 3 chronic kidney disease, without long-term current use of insulin (HCC) 03/26/2018 - Diaphragmatic hernia without mention of obstruction or gangrene - Diverticulitis of colon (without mention of hemorrhage)(562.11) - Esophageal reflux - Essential hypertension, benign 01/28/2014 - Family history of colon cancer in mother 12/22/2014 - Family history of malignant neoplasm of gastrointestinal tract - GERD (gastroesophageal reflux disease) 04/19/2010 - History of left heart catheterization 06/30/2015 [facility] - see scanned documents - Hyperlipidemia LDL goal < 100 04/26/2011 - Hypothyroidism 08/21/2010 - Lumbago - Lumbar disc disease with radiculopathy 10/09/2013 - Morbid obesity (HCC) 04/23/2012 - DANYELL (obstructive sleep apnea) - Osteoarthritis of hip 02/16/2010 - Other diseases of lung, not elsewhere classified PULMONARY NODULE - Pure hypercholesterolemia - S/P PTCA (percutaneous transluminal coronary angioplasty) - Snoring - Unspecified asthma(493.90) - Unspecified constipation - Unspecified hemorrhoids without mention of complication - Vitamin D deficiency 07/05/2013 PAST SURGICAL HISTORY Procedure Laterality Date [facility] Colonoscopy - COLONOSCOP W/ OR W/O [facility] SPEC 10/28/08 - COLONOSCOP W/ OR W/O [facility] SPEC 01/29/15 Colonoscopy - ECHO 06/24/2015 [facility] - see scanned documents - EGD W/O OR W/BRUSH/WASH 09/27/2006 EGD - EGD W/O OR W/BRUSH/WASH 04/27/2010 EGD - EGD W/O OR W/BRUSH/WASH 04/15/16 EGD - LAPAROSCOPY, SURGICAL, APPENDECTOMY 05/02/16 - POLYSOMNOGRAM 06/2001 - PULMONARY FUNCTION TEST 10/19/02 - REPAIR INCIS HERNIA W MESH 03/26/07 - REPAIR INCISIONAL HERNIA,REDUCIBLE 03/26/07 - STENT PLACEMENT maker Social History Marital status: Spouse name: J Luis Years of education: Number of children: 6 Occupational History Occupation Employer Comment RETIRED [employer]IRED [employer] Social History Main Topics Smoking status: Former Smoker Packs/day: 1.00 Years: 5.00 Types: Cigarettes Quit date: 10/17/1964 Smokeless tobacco: Never Used Alcohol use: No Drug use: No ACTIVE PROBLEM LIST Esophageal Reflux Asthma Calculus of Kidney Unspecified Chronic Liver Disease Without Mention of Alcohol Hypertrophy of Prostate With Urinary Obstruction and Other Lower Urinary Tract Symptoms (Luts) 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 Gerd (Gastroesophageal Reflux Disease) Diaphragmatic hernia without mention of obstructio Hypothyroidism Hyperlipidemia With Target Ldl Less Than 100 Morbid Obesity (Hcc) Vitamin D Deficiency Lumbar Disc Disease With Radiculopathy Essential hypertension, benign Bph (Benign Prostatic Hypertrophy) With Urinary Retention Family History of Colon Cancer in Mother Iron Deficiency Anemia Secondary to Inadequate Dietary Iron Intake Elevated Liver Function Tests Controlled Type 2 Diabetes Mellitus With Stage 3 Chronic Kidney Disease, Without Long-Term Current Use of Insulin (Hcc) Current Outpatient Prescriptions: aspirin, enteric coated (ASPIRIN, ENTERIC COATED) 81 mg EC tablet Take 81 mg by mouth once daily. Disp: Rfl: Cholecalciferol, Vitamin D3, (VITAMIN D-3) 2,000 unit cap Take 1 tablet by mouth once daily. Disp: Rfl: clopidogrel (PLAVIX) 75 mg tablet Take 75 mg by mouth once daily. Disp: Rfl: finasteride (PROSCAR) 5 mg tablet Take 5 mg by mouth once daily. Disp: Rfl: furosemide (LASIX) 40 mg tablet Take 40 mg by mouth once daily. Disp: Rfl: insulin 70/30 NPH/regular units/mL (HUMULIN 70/30, NOVOLIN 70/30) 52 units SQ ac breakfast and 38 units SQ ac supper (Patient taking differently: 50 units SQ ac breakfast and 40 units SQ ac supper ) Disp: Rfl: 0 levothyroxine (SYNTHROID) 50 mcg tablet Take 1 tablet by mouth once daily. Disp: 90 tablet Rfl: 4 losartan (COZAAR) 50 mg tablet Take 1 tablet by mouth once daily. Disp: Rfl: 0 metFORMIN (GLUCOPHAGE) 500 mg tablet Take 2 tablets by mouth twice daily with meals. Disp: Rfl: naproxen (NAPROSYN) 500 mg tablet Take 1 tablet by mouth twice daily as needed for Pain. Take with food. Disp: 60 tablet Rfl: [address] (PROTONIX) 40 mg tablet TAKE ONE TABLET BY MOUTH ONCE DAILY Disp: 90 tablet Rfl: 1 pravastatin (PRAVACHOL) 20 mg tablet Take 1 tablet by mouth once daily. Disp: Rfl: 0 tamsulosin ER (FLOMAX) 0.4 mg cp24 Take 1 capsule by mouth daily at bedtime. (Patient not taking: Reported on 03/26/2018 ) Disp: 30 capsule Rfl: 1 No current facility-administered medications for this visit. BP CONTROLLED (<130/80) due on 08/20/1955 DTAP,TDAP,TD(1 - Tdap) due on 11/18/2005 URINE ALBUMIN:CREATININE RATIO due on 06/30/2017 SERUM CREATININE due on 03/29/2018 Component Latest Ref Rng AND Units 11/14/2017 03/01/2018 05/21/2018 Glucose 74 - 106 MG/DL 106 194 (A) 184 (A) Sodium 136 - 145 MEQ/L 141 139 138 Potassium 3.5 - 5.1 MEQ/L 4.1 4.6 4.5 Chloride 98 - 107 MEQ/L 104 103 105 BICARBONATE 28.0 23.0 Anion Gap 12 8 10 Urea Nitrogen 6 - 20 mg/dL 26 (A) 27 (A) Creatinine 0.6 - 1.3 MG/DL 1.37 (A) 1.53 (A) 1.52 (A) GFR mL/MIN 53 47 47 GFR AFR AMER mL/MIN 64 57 57 Calcium 8.8 - 10.5 MG/DL 9.2 9.7 9.3 03/10/17 a1c 7.2% EXAM: BP 110/80 (BP Site: Right Arm, BP Position: Sitting, BP Cuff Size: Large Adult) Pulse 80 Temp 36.1 ?C (97 ?F) Resp 28 Wt 110.7 kg (244 lb) BMI 43.22 kg/m? Pleasant obese in no acute distress. Alert and oriented all spheres. Normal affect and cognition. Speech normal. No deficits to learning or comprehension. Skin warm, dry, pink to lips and nailbeds. Normal turgor. Respirations regular and unlabored. Left upper arm with dark purplish black over most of anterior mid upper arm and medial elbow. Tender in upper arm over biceps. + bulge with resisted flexion. Good resistance strength on biceps. Pain with resistance to pronation. Extrem: no clubbing, cyanosis, edema. Extremities are warm and pink with prompt capillary refill. ASSESSMENT/PLAN: 1. Rupture long head biceps tendon, left, initial encounter - ICD9: 840.8, ICD10: S46.112A Ice, rest. Recheck in 5-7 days. May continue tylenol and/ or tramadol as needed 2. Stage 3 chronic renal impairment associated with type 2 diabetes mellitus (HCC) - ICD9: 250.40, 585.3, ICD10: E11.22, N18.3 worsening control - Discussed diabetic education issues of avoiding NSIADS with patient. Current on Mobic. Should discuss with ortho 3. Controlled type 2 diabetes mellitus with stage 3 chronic kidney disease, without long-term current use of insulin (HCC) - ICD9: 250.40, 585.3, ICD10: E11.22, N18.3 F/u 1 week as needed FILIBERTO Keller PA-C 06/05/2018 11:33 AM Signed Recommended to apply ice to affected area for 20 minutes, as often as every hour. Ice should not be applied directly to skin. Rest the arm. Recheck in a week. If pain or worsening please come in as needed. Referring Provider: SELF [[id number]] Allergies As of Date: 06/05/2018 Noted Allergy Reaction ACTOS (PIOGLITAZONE HCL) 2006 Comments: abdomenal pain Date Reviewed: 06/05/2018 Reviewed by: Estrella Morin LPN - Fully Assessed Reason for Visit: Arm Pain [137] Cmt: felt a pop in left upper arm 4 days ago while reaching down for keys, arm bruised AND painful Primary Visit Diagnosis:Rupture long head biceps tendon, left, initial encounter [S46.112A] Other Visit Diagnoses:Stage 3 chronic renal impairment associated with type 2 diabetes mellitus (HCC) [E11.22, N18.3] Controlled type 2 diabetes mellitus with stage 3 chronic kidney disease, without long- term current use of insulin (HCC) [E11.22, N18.3] Order(s):meloxicam (MOBIC) 7.5 mg tabletTake 1 tablet by mouth once daily. Take with food. Per Dr. Gayle orthoDisp: Rfl: Prescriptions as of 06/05/2018 Sig: ASPIRIN 81 MG TABLET,DELAYED * Take 81 mg by mouth once neeraj* CHOLECALCIFEROL (VITAMIN D3) * Take 1 tablet by mouth once d* CLOPIDOGREL 75 MG TABLET Take 75 mg by mouth once neeraj* FINASTERIDE 5 MG TABLET Take 5 mg by mouth once daily. FUROSEMIDE 40 MG TABLET Take 40 mg by mouth once neeraj* INSULIN HUMAN U-100 NPH-REGUL* 52 units SQ ac breakfast and * Patient taking differently: 50 units SQ ac breakfast and * LEVOTHYROXINE 50 MCG TABLET Take 1 tablet by mouth once d* LOSARTAN 50 MG TABLET Take 1 tablet by mouth once d* METFORMIN 500 MG TABLET Take 2 tablets by mouth twice* PANTOPRAZOLE 40 MG TABLET,DEL* TAKE ONE TABLET BY MOUTH ONCE* PRAVASTATIN 20 MG TABLET Take 1 tablet by mouth once d* MELOXICAM 7.5 MG TABLET Take 1 tablet by mouth once d* TAMSULOSIN 0.4 MG CAPSULE Take 1 capsule by mouth daily* Patient not taking: Reported on 03/26/2018 Problem List As Of Date 06/05/2018 Noted Resolved ESOPHAGEAL REFLUX [K21.9] Asthma [J45.909] CALCULUS OF KIDNEY [N20.0] Diverticulitis of colon (without mention of hem* 12/22/2014 CHRONIC LIVER DIS NOS [K76.9] INVALID FOR* Abdominal pain, generalized [R10.84] INVALID FOR*12/22/2014 Acute gastritis without mention of hemorrhage [*INVALID FOR*12/22/2014 Unilateral or unspecified femoral hernia withou*INVALID FOR*12/22/2014 Incisional hernia without mention of obstructio*INVALID FOR*12/22/2014 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] INVALID FOR*11/03/2016 Unspecified vitamin D deficiency [E55.9] INVALID FOR*11/03/2016 BPH W URINARY OBS/LUTS [N40.1] INVALID FOR* 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] INVALID FOR* 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] INVALID FOR* GERD (gastroesophageal reflux disease) [K21.9] INVALID FOR* Diaphragmatic hernia without mention of obstruc*INVALID FOR* Hypothyroidism [E03.9] INVALID FOR* Hyperlipidemia with target LDL less than 100 [E*INVALID FOR* Sprain of lumbar region [S33.5XXA] INVALID FOR*10/27/2011 Morbid obesity [E66.01] INVALID FOR* Vitamin D deficiency [E55.9] INVALID FOR* Lumbar disc disease with radiculopathy [M51.16] INVALID FOR* Essential hypertension, benign [I10] INVALID FOR* BPH (benign prostatic hypertrophy) with urinary*INVALID FOR* Family history of colon cancer in mother [Z80.0]INVALID FOR* Special screening for malignant neoplasms, colo*INVALID FOR*01/29/2015 Iron deficiency anemia secondary to inadequate *INVALID FOR* Iron deficiency anemia due to chronic blood los*INVALID FOR*04/15/2016 Gastroesophageal reflux disease [K21.9] INVALID FOR*04/15/2016 Acute appendicitis with localized peritonitis [*INVALID FOR*03/26/2018 Elevated liver function tests [R94.5] INVALID FOR* Controlled type 2 diabetes mellitus with stage *INVALID FOR* Other instructions from your clinician: Recommended to apply ice to affected area for 20 minutes, as often as every hour. Ice should not be applied directly to skin. Rest the arm. Recheck in a week. If pain or worsening please come in as needed. Prescriptions ordered this encounter Disp Refills Start End MELOXICAM 7.5 MG TABLET 06/05/2018 Class: Med Update Route: ORAL Sig: Take 1 tablet by mouth once daily. Take with food. Per Dr. Gayle ortho Medications Discontinued During This Encounter naproxen (NAPROSYN) 500 mg tablet 60 t* 5 07/31/2017 06/05/2018 Route: ORAL Sig: Take 1 tablet by mouth twice daily as needed for Pain. Take with food. Disc: Reason for discontinue is not on file. Encounter Status:Closed by Libia SINGH PA-C on 06/05/18 PULMONARY VISIT REPORT Observed: 06/05/2018 Status: F Source: [facility] 10:56 AM [facility] REPOSITORY [facility] [address] [place] [address] OFFICE VISIT Date of Service: 06/05/18 MR#: [id number] Acct: [id number] Name: OLMAN REDDY Rep #: [id number] : 1935 Provider: Lela Sherman Age/Sex: 82/M Location: [facility] Status: Signed Assessment AND Plan 1. Shortness of breath R06.02; R06.00; R06.01 Plan Deteriorated. Patient does have a significant amount of lower extremity edema, obtaining blood work today which consist of a BMP to evaluate kidney function and a BNP to look for heart failure. Patient would benefit from a right heart catheterization to clarify right heart pressures, looking for pulmonary hypertension. Lengthy discussion with the patient today regarding symptoms, possible pulmonary hypertension, further testing and treatment. Will test for possible exertional hypoxia with a simple 6-minute walk test. If present, patient will be set up with supplemental oxygen to be used as needed. Also provided the patient with education regarding pulmonary hypertension diet. Follow-up with Dr. Nazario in 1 month, at which time he can review cardiology input as well as testing that was ordered today. Patient has been advised to contact the office with any new or worsening symptoms in the meantime. Orders Orders: 2. BMI 40.0-44.9, adult Z68.41 Plan Continue to encourage weight loss. 3. Obstructive sleep apnea of adult G47.33 Plan Patient is using and benefiting from Pap therapy. No indication for titration study at this time. Continue to encourage weight loss. Contact the office for any new or worsening symptoms in the meantime. Follow-up in 1 month. 4. Hiatal hernia K44.9 Plan May be attributing to shortness of breath. Discussed the role between obesity, hiatal hernia and shortness of breath. Plan Detail Follow Up 1 Month ([facility]) HPI 1 W FU: Chief Complaint: Shortness of breath HPI Comments Details: This is a 82 year old M, here to follow up for sleep apnea, and shortness of breath. He continues to report shortness of breath on exertion and at times at rest. He believes that it may have slightly worsened since his last office visit. He was given a rescue inhaler at his last office visit and stated that it did not improve his shortness of breath whatsoever. He is having orthopnea, which is causing him some difficulty tolerating his BiPAP when lying flat. He does have an occasional dry cough, most prevalent when he overexerts himself. He denies any sputum production or hemoptysis. He is not experience any wheezing, chest tightness or chest pain. He denies any palpitations. He does report increasing lower extremity edema. His reports that the patient has been eating chipped Ham frequently. He is compliant with Lasix daily. He is not currently on any maintenance inhalers. He has not tried any [id number] medications to treat his symptoms. See complete review of systems. Current use of pressure support therapy is on average of 7- 1/2 hours per night with current settings of 16/12 cmH2O. OLMAN denies any daytime somnolence, dry mouth in the morning, nocturia, snoring through the mask, morning headaches or difficulty with mask leaks. Reports difficulty breathing when lying flat. OLMAN reports feeling somewhat rested in the morning and is benefitting from current therapy. Compliance report was reviewed and shows 100% compliance, AHI is slightly elevated at an average of 3.7 events per hour and leaks do not appear to be an issue. CT of the chest completed on June 01, 2018 shows that it is negative for pulmonary embolism. Stable fibrotic bands in the left lung base. Stable hiatal hernia. Intake Vital Signs06/05/18 Height 5 ft 4 in 06/05/18 Weight: 245 lb Intake Visit Reasons: 1 W FU [facility] Vendor: [employer] Accompanied by: Allergies pioglitazone HCl [From [employer]] Adverse Reaction (Verified 06/05/18 09:08) Upset Stomach Medications Levothyroxine [Synthroid] 50 mcg PO DAILY 01/05/14 [History Confirmed 06/05/18] Metformin HCl [Glucophage] 1,000 mg PO BIDCM 01/05/14 [History Confirmed 06/05/18] Pravastatin [Pravachol] 20 mg PO DAILY 01/05/14 [History Confirmed 06/05/18] Cholecalciferol (Vitamin D3) [Vitamin D3] 5,000 unit PO DAILY 06/29/15 [History Confirmed 06/05/18] Finasteride [Proscar] 5 mg PO DAILY 06/29/15 [History Confirmed 06/05/18] Insulin NPH/Reg 70/30 [Novolin 70/30] 36 units SC DINNER 06/29/15 [History Confirmed 06/05/18] Insulin NPH/Reg 70/30 [Novolin 70/30] 50 units SC BREAKFAST 06/29/15 [History Confirmed 06/05/18] Pantoprazole Sodium [Protonix] 40 mg PO DAILY 06/29/15 [History Confirmed 06/05/18] Aspirin [Adult Low Dose Aspirin EC] 81 mg PO DAILY 07/24/15 [History Confirmed 06/05/18] clopidogrel 75 mg tablet 75 mg PO DAILY #90 tab 08/15/17 [Rx Confirmed 06/05/18] furosemide 40 mg tablet 40 mg PO DAILY #90 tab 09/06/17 [Rx Confirmed 06/05/18] losartan 50 mg tablet 50 mg PO QDAY #90 tab 09/06/17 [Rx Confirmed 06/05/18] isosorbide mononitrate ER 30 mg tablet,extended release 24 hr 30 mg PO DAILY #90 tab 04/19/18 [Rx Confirmed 06/05/18] naproxen 500 mg tablet 500 mg PO BID 04/19/18 [History Confirmed 06/05/18] amlodipine 5 mg tablet 5 mg PO DAILY #30 tab 05/14/18 [Rx Confirmed 06/05/18] meloxicam 15 mg tablet 7.5 mg PO BID tab 05/14/18 [History Confirmed 06/05/18] albuterol sulfate HFA 90 mcg/actuation aerosol inhaler 2 puff INHALATION Q4H PRN #1 device 05/29/18 [Rx Confirmed 06/05/18] PFSH Medical History Diabetes mellitus (Chronic) BMI 40.0-44.9, adult (Chronic) Dyspnea (Chronic) Cough (Chronic) Shortness of breath (Chronic) Obesity (Chronic) Upper respiratory infection (Resolved) Right flank pain (Resolved) Atherosclerotic heart disease of [place] coronary artery without angina pectoris (Chronic) 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 (Chronic) halfway use of drug (Chronic) Palpitations (Chronic) Nonrheumatic tricuspid (valve) insufficiency (Chronic) Obstructive sleep apnea of adult (Chronic) Hypothyroid (Chronic) Diabetes mellitus type 2 in obese (Chronic) Hypertension (Chronic) Nephrolithiasis (Chronic) GERD (gastroesophageal reflux disease) (Chronic) Benign prostatic hypertrophy (Chronic) Appendicitis (Resolved) Coronary artery disease (Chronic) Chest pain (Resolved) HLD (hyperlipidemia) (Chronic) Anemia (Resolved) Surgical History Status post angioplasty with stent (Chronic) S/P PTCA (percutaneous transluminal coronary angioplasty) (Chronic) History of lymph node biopsy (Chronic) History of appendectomy (Resolved) History of back surgery (Resolved) History of open heart surgery (Resolved) Family History Mother CAD (coronary artery disease) Brother CAD (coronary artery disease) Myocardial infarction Daughter Asthma Father Cancer bone cancer Sister Breast cancer Sister Cardiomyopathy Social History Smoking Status: Former smoker pack-years: 2 how long ago did patient quit smokin years ago second hand exposure: No alcohol intake: never substance use type: does not use caffeine: Yes Type: coffee Number of servings: 2 what type of physical activity do you participate in: none seatbelt use: always do you feel safe at home: Yes Review of Systems Const CONSTITUTIONAL: Positive fatigue; negative anorexia, body ache, chills, daytime sleepiness, fever(s), night sweats, oral thrush, stops breathing during sleep, weight loss, sleeping in chair, weight loss, weight gain, frequent colds, seasonal allergies, other, headache(s) or orthopnea EETM Ear Nose Throat Mouth: Positive hearing normal; negative hard of hearing, hoarseness, dry mouth in morning, change in vision, itchy eyes, eye pain, swallowing Difficulty, ear pain, nose bleed, headache(s), mouth pain, nasal congestion, nasal discharge, post nasal drip, sinus pain, sinus pressure, sore throat or other Cardio Cardiovascular: Negative chest pain, chest pain at rest, chest pain with activity, irregular heart rhythm, edema, shortness of breath when lying down, palpitations, murmur or other Resp Respiratory: Positive as per HPI, shortness of breath shortness of breath: Positive with activity, wheezing and cough cough: Positive non-productive; negative pain with cough, chest congestion, chest tightness, pain on inspiration, inhalers, increase use of rescue inhalers, snoring, apnea or other Gastro Gastrointestional: Negative bloody stools, change in appetite, difficulty swallowing, reflux, hematemesis, melena stool, loose stool, constipation or other Genitourinary: Negative blood in urine, nocturia, pain with urination or other Musc Musculoskeletal: Negative body pain, back pain, neck pain or other Skin/Breast Skin/Breast: Negative dry skin, itching, rash, unusual bruising, breast lump or other Neuro Neurological: Negative restless legs, confusion, weakness or other Psych Psychocological: Positive abnormal sleep pattern and hopelessness; negative anxiety, thoughts of hurting self/others or other Lymph Lymphatic: Negative easy bleeding, easy bruising, swollen lymph nodes or other Exam Const Constitutional: Positive conversant, cooperative, in no acute respiratory distress, healthy appearing, well developed, well nourished, good hygiene and obese Head Head: Positive normocephalic and atraumatic; negative cyanosis of lips/distal nose Eyes Eye: Positive clear conjunctiva; negative nystagmus or scleral abnormality Ears Ear: Positive hearing normal and external ears normal; negative hard of hearing Nose Nose: Positive external nose normal and no nasal discharge; negative epistaxis Mouth Mouth: Positive oral mucosae normal, crowded posterior oropharynx, no lesions and dentures; negative post nasal drip, malodorous breath or oral thrush present Mallampati Score: IV: Mallampati Score Neck Neck: Positive normal visual inspection, full ROM, trachea midline, thick neck and male neck greater than 43 cm (17 in); negative lymphadenopathy, JVD or tender Chest Wall Chest: Positive normal inspection of the chest and symmetric chest movement; negative increased A/P diameter Resp lung sounds: Positive clear to auscultation, good air exchange, normal expiratory time and normal respiratory effort; negative diminished, wheezes, rhonchi, rales, dullness to percussion or wheeze present on forced exhalation Cardio Cardiac: Negative murmur, regular rate or regular rhythm GI GI: Positive normal to inspection and obese; negative distended Genitourinary: Positive deferred Musc Musculoskeletal: Positive steady gait and ROM normal; negative kyphosis or scoliosis Skin Pulmonary Skin Exam: Positive intact; negative rash Pulses Pulse: Yes pulses normal x4 extremities Extremities Extremities: Yes capillary refill normal, No clubbing, No cyanosis, Yes edema Location: lower extremity location: Bilateral pitting +3 Neuro Neurologic: Yes conversant, Yes no focal neuro deficits, Yes normal concentration, Yes understands questions, Yes cooperative, Yes normal cognition, Yes normal coordination, No tremor Lymph Lymphatic: No lymphadenopathy, No tenderness, No cervical adenopathy Psych Appearance: Positive grossly normal, eye contact and well kempt Mental Status: Positive mental status grossly normal Mood: Positive congruent mood Affect: Positive normal affect Coding Level of Care Code Off vis,est,level 4 Diagnoses Shortness of breath R06.02; R06.00; R06.01 Dyspnea type: shortness of breath BMI 40.0-44.9, adult Z68.41 Obstructive sleep apnea of adult G47.33 Hiatal hernia K44.9 06/05/18 1056 <Electronically signed by Lela WALKER> Date Lela WALKER Cosigner Signature: Date (if applicable) CC: Nathanael Jones III, MD BASIC METABOLIC Collected: 06/05/2018 Status: F Source: [place] PROFILE (BMP) 10:26 AM [facility] REPOSITORY TYPE CODE TESTS RESULT OUT OF RANGE REFERENCE UNITS LAB L501.0100 74-106 mg/dL High GLU 157 Result Comment: Fasting Glucose result greater than or equal to 126 mg/dL suggests DIABETES MELLITUS per A.D.A. criteria. Please note revised GLUCOSE reference range effective 2017. LAB L501.1000 7-18 mg/dL High BUN 24 LAB L501.1100 0.70-1.30 mg/dL High CREAT,SERUM 1.49 Result Comment: The validity of the calculated GFR AND GFRAA in patients over 70 years has not been determined. Clinical correlation is essential. LAB L501.1110 >60 mL/min Low EST GFR 48 Result Comment: Non- GFR Calc LAB L501.1115 >60 mL/min Low EST GFR - AA 58 Result Comment: GFR Calc LAB L501.1300 10-20 RATIO Normal BUN/CRE 16.1 LAB L501.2200 8.5-10.1 mg/dL CA Normal 10.1 LAB L501.5300 136-145 mmol/L NA Normal 137 LAB L501.5600 3.5-5.1 mmol/L K Normal 4.5 LAB L501.5900 98-107 mmol/L CL Normal 101 LAB L501.6100 21.0-32.0 mmol/L Normal CO2 29.0 LAB L501.6200 5-15 Normal GAP 7 Performed By: #### L500.2500 #### [facility] [address] [place], [address] BNP,B-TYPE NATRIURETIC Collected: 06/05/2018 Status: F Source: [place] PEPTIDE 10:26 AM [facility] REPOSITORY TYPE CODE TESTS RESULT OUT OF RANGE REFERENCE UNITS LAB L503.6620 0-100 pg/mL Normal B-TYPE 25.4 LUIZA PEP Performed By: #### L503.6620 #### [facility] [address] [place], [address] CTA CHEST W/WO Observed: 06/01/2018 Status: F Source: [place] CONTRAST 1:28 PM [facility] REPOSITORY [facility] Imaging Services [address] [place] [address] CTA Chest W/WO Contrast MR#: [id number] Acct: [id number] Name: OLMAN REDDY Rep #: [id number] : 1935 M 82 From: Rakesh Rolle MD PCP: Nathanael Jones III, MD Status: REG CLI Study: CTA Chest W/WO Contrast Date of Exam: 06/01/18 Exam# [id number] Ordering Dr: Americo Nazario DO STUDY: CTA CHEST REASON FOR EXAM: Male, 82 years old. Shortness of breath for one month, prior CABG RADIATION DOSAGE (If Supplied By Facility): CTDIvol = ( 14.62 ) mGy, DLP = ( 654.56 ) mGycm TECHNIQUE: The examination was performed with the intravenous administration of 100 ml of Isovue 370 contrast material. Post-processing of the angiographic images was performed, with multiplanar reformation and 3D reconstruction. Individualized dose optimization techniques were used for this CT. COMPARISON: 03/08/2016 FINDINGS: Normal enhancement of the main pulmonary artery and right and left pulmonary arteries. Normal enhancement of the bilateral peripheral pulmonary arteries. There is no demonstrated pulmonary embolism. Normal thoracic aorta and visualized great vessels. There is no demonstrated aortic dissection. Normal heart and pericardium. Sternal wires and mediastinal surgical clips compatible with prior CABG. No mediastinal or axillary adenopathy. No hilar adenopathy. Normal visualized trachea and bronchi. The lungs are well expanded. Fibrotic bands in the left lung base stable. Pleural thickening along the posterior and basilar left lung compatible with prior thoracotomy. Deformity of multiple left ribs compatible with prior thoracotomy. Stable appearance when compared to the prior study. Old right rib fractures are noted. There are degenerative changes of the thoracic spine with dextroscoliosis. Fusion hardware in the lumbar spine partially visualized. A moderate size hiatal hernia composed of gastric fundus identified. Diminished intensity throughout the visualized liver with multiple hepatic cysts overall stable. The adrenal glands are not focally enlarged. CT/CTA Chest W/WO Contrast IMPRESSION: 1. No central or segmental pulmonary embolism. No thoracic aortic dissection. 2. Stable hiatal hernia. Stable hepatic cysts. 3. Status post CABG, left thoracotomy. Stable pleural and parenchymal fibrotic changes. Electronically Signed: Rakesh Rolle MD at 18:56 EST , Service support , CC: Americo Nazario D.O.; Nathanael Jones III, MD [employer] Fil[employer] Operator: Signed PULMONARY VISIT REPORT Observed: 05/29/2018 Status: F Source: [place] 2:00 PM [facility] REPOSITORY [facility] [place] [address] [place] [address] OFFICE VISIT Date of Service: 05/29/18 MR#: [id number] Acct: [id number] Name: OLMAN REDDY Rep #: [id number] : 1935 Provider: Americo Nazario D.O. Age/Sex: 82/M [facility] Status: Signed Assessment AND Plan 1. Shortness of breath R06.02 Plan The patient reports significant worsening in his shortness of breath over the last 4 weeks. He states that he is now unable to lay flat completely. He does report dietary indiscretions along with weight gain recently. Despite this, the patient states that upon evaluation by cardiology 1 week ago, he was told that he had nothing wrong with his heart. At this time, I am going to provide the patient with an albuterol rescue inhaler to be utilized as needed for shortness of breath. I am also going to obtain a CTA of his chest to evaluate for any lung parenchymal abnormalities and/or pulmonary embolism. If testing is negative and the patient does not respond to the use of albuterol, cardiology would then need to consider doing a right heart catheterization to evaluate for diastolic dysfunction and subsequent pulmonary hypertension. Orders Orders: 2. DANYELL (obstructive sleep apnea) G47.33 Plan The patient has been compliant with the use of nocturnal Pap therapy and appears to be benefiting clinically from its use. This will be continued without change. 3. Obesity E66.9 Plan Weight loss through dietary modification and a graded exercise regimen is strongly encouraged. Plan Detail Other Medications New: albuterol sulfate HFA 90 mcg/actuation adm2 puffs Inhalation Q4H PRN 1 device 1RF shor inister with spacer tness of breath Follow Up 1 Week ([facility]) HPI HPI Comments Details: The patient is an 82-year-old male who presents to the clinic today for a routine scheduled follow-up office visit due to underlying obstructive sleep apnea. His is present at today's office visit. The patient's nocturnal compliance report was personally reviewed at today's office visit. Over the last 30 days, the patient has demonstrated an overall compliance rate of 100%. He is currently utilizing his BiPAP on average just over 8 hours per night. He is currently prescribed a pressure support of 16/12 centimeters of water. He has a residual AHI of 3.4 events per hour. Occasional air leaks are noted. A 6-minute walk test completed in February 2018 revealed no need for supplemental oxygen. A surface echocardiogram was also completed in February 2018 and revealed an ejection fraction of 55% and indeterminant diastolic dysfunction. The RVSP was unable to be estimated. The patient also had prior pulmonary function testing completed which were grossly normal. Today, the patient reports significant worsening in his shortness of breath over the last 4 weeks. He states that his shortness of breath is typically worse when laying down. He does report occasional chest tightness, but denies the presence of wheezing. He denies the presence of a cough or chest pain. He readily admits to noncompliance with a low sodium diet and states that he has gained some weight recently. Additionally, the patient states that he was recently evaluated by Dr. Ashton of cardiology who reportedly conveyed to him that there was nothing wrong with his heart and that his shortness of breath must be related to the lungs. Despite having completed 2 separate echocardiograms previously, the patient's diastolic has never been able to be adequately assessed, nor have his right-sided pressures. The patient does report some swelling in his legs. He denies fevers, chills or night sweats. Intake Vital Signs05/29/18 Height 5 ft 4 in 05/29/18 Weight: 244 lb Intake Visit Reasons: 3 M FU [facility] [facility] Vendor: [employer] Accompanied by: Allergies pioglitazone HCl [From [employer]] Adverse Reaction (Verified 05/29/18 12:50) Upset Stomach Medications Levothyroxine [Synthroid] 50 mcg PO DAILY 01/05/14 [History Confirmed 05/29/18] Metformin HCl [Glucophage] 1,000 mg PO BIDCM 01/05/14 [History Confirmed 05/29/18] Pravastatin [Pravachol] 20 mg PO DAILY 01/05/14 [History Confirmed 05/29/18] Cholecalciferol (Vitamin D3) [Vitamin D3] 5,000 unit PO DAILY 06/29/15 [History Confirmed 05/29/18] Finasteride [Proscar] 5 mg PO DAILY 06/29/15 [History Confirmed 05/29/18] Insulin NPH/Reg 70/30 [Novolin 70/30] 36 units SC DINNER 06/29/15 [History Confirmed 05/29/18] Insulin NPH/Reg 70/30 [Novolin 70/30] 50 units SC BREAKFAST 06/29/15 [History Confirmed 05/29/18] Pantoprazole Sodium [Protonix] 40 mg PO DAILY 06/29/15 [History Confirmed 05/29/18] Aspirin [Adult Low Dose Aspirin EC] 81 mg PO DAILY 07/24/15 [History Confirmed 05/29/18] clopidogrel 75 mg tablet 75 mg PO DAILY #90 tab 08/15/17 [Rx Confirmed 05/29/18] furosemide 40 mg tablet 40 mg PO DAILY #90 tab 09/06/17 [Rx Confirmed 05/29/18] losartan 50 mg tablet 50 mg PO QDAY #90 tab 09/06/17 [Rx Confirmed 05/29/18] isosorbide mononitrate ER 30 mg tablet,extended release 24 hr 30 mg PO DAILY #90 tab 04/19/18 [Rx Confirmed 05/29/18] naproxen 500 mg tablet 500 mg PO BID 04/19/18 [History Confirmed 05/29/18] amlodipine 5 mg tablet 5 mg PO DAILY #30 tab 05/14/18 [Rx Confirmed 05/29/18] meloxicam 15 mg tablet 7.5 mg PO BID tab 05/14/18 [History Confirmed 05/29/18] albuterol sulfate HFA 90 mcg/actuation aerosol inhaler 2 puff INHALATION Q4H PRN #1 device 05/29/18 [Rx Confirmed 05/29/18] PFSH Medical History Diabetes mellitus (Chronic) BMI 40.0-44.9, adult (Chronic) Dyspnea (Chronic) Cough (Chronic) Shortness of breath (Chronic) Obesity (Chronic) Upper respiratory infection (Resolved) Right flank pain (Resolved) Atherosclerotic heart disease of [place] coronary artery without angina pectoris (Chronic) 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 (Chronic) 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) Palpitations (Chronic) Nonrheumatic tricuspid (valve) insufficiency (Chronic) Obstructive sleep apnea of adult (Chronic) Hypothyroid (Chronic) Diabetes mellitus type 2 in obese (Chronic) Hypertension (Chronic) Nephrolithiasis (Chronic) GERD (gastroesophageal reflux disease) (Chronic) Benign prostatic hypertrophy (Chronic) Appendicitis (Resolved) Coronary artery disease (Chronic) Chest pain (Resolved) HLD (hyperlipidemia) (Chronic) Anemia (Resolved) Surgical History Status post angioplasty with stent (Chronic) S/P PTCA (percutaneous transluminal coronary angioplasty) (Chronic) History of lymph node biopsy (Chronic) History of appendectomy (Resolved) History of back surgery (Resolved) History of open heart surgery (Resolved) Family History Mother CAD (coronary artery disease) Brother CAD (coronary artery disease) Myocardial infarction Daughter Asthma Father Cancer bone cancer Sister Breast cancer Sister Cardiomyopathy Social History Smoking Status: Former smoker pack-years: 2 how long ago did patient quit smokin years ago second hand exposure: No alcohol intake: never substance use type: does not use caffeine: Yes Type: coffee Number of servings: 2 what type of physical activity do you participate in: none seatbelt use: always do you feel safe at home: Yes Review of Systems Const CONSTITUTIONAL: Positive fatigue; negative anorexia, body ache, chills, daytime sleepiness, fever(s), night sweats, oral thrush, stops breathing during sleep, weight loss, sleeping in chair, weight loss, weight gain, frequent colds, seasonal allergies, other, headache(s) or orthopnea EETM Ear Nose Throat Mouth: Positive hearing normal; negative hard of hearing, hoarseness, dry mouth in morning, change in vision, itchy eyes, eye pain, swallowing Difficulty, ear pain, nose bleed, headache(s), mouth pain, nasal congestion, nasal discharge, post nasal drip, sinus pain, sinus pressure, sore throat or other Cardio Cardiovascular: Negative chest pain, chest pain at rest, chest pain with activity, irregular heart rhythm, edema, shortness of breath when lying down, palpitations, murmur or other Resp Respiratory: Positive as per HPI and shortness of breath shortness of breath: Positive with activity, lying down and worsening; negative pain with cough, wheezing, chest congestion, cough, chest tightness, pain on inspiration, inhalers, increase use of rescue inhalers, snoring, apnea or other Gastro Gastrointestional: Negative bloody stools, change in appetite, difficulty swallowing, reflux, hematemesis, melena stool, loose stool, constipation or other Genitourinary: Negative blood in urine, nocturia, pain with urination or other Musc Musculoskeletal: Negative body pain, back pain, neck pain or other Skin/Breast Skin/Breast: Negative dry skin, itching, rash, unusual bruising, breast lump or other Neuro Neurological: Negative restless legs, confusion, weakness or other Psych Psychocological: Negative abnormal sleep pattern, anxiety, thoughts of hurting self/others, hopelessness or other Lymph Lymphatic: Negative easy bleeding, easy bruising, swollen lymph nodes or other Exam Const Constitutional: Positive conversant, cooperative, in no acute respiratory distress, well developed, well nourished, good hygiene and obese Head Head: Positive normocephalic and atraumatic; negative cyanosis of lips/distal nose Eyes Eye: Positive clear conjunctiva; negative nystagmus or scleral abnormality Ears Ear: Positive hearing normal and external ears normal; negative hard of hearing Nose Nose: Positive external nose normal; negative epistaxis Mouth Mouth: Positive oral mucosae normal and posterior oropharynx is adequate; negative no lesions or post nasal drip Mallampati Score: II: Mallampati Score Neck Neck: Positive normal visual inspection, trachea midline and thick neck; negative lymphadenopathy Chest Wall Chest: Positive symmetric chest movement Normal AP diameter. Resp lung sounds: Positive clear to auscultation; negative wheezes, rhonchi or rales Cardio Cardiac: Positive regular rate, regular rhythm, S1 normal and S2 normal; negative rub, gallop or murmur GI GI: Positive normal bowel sounds and obese Soft without distention Genitourinary: Positive deferred Musc Musculoskeletal: Positive steady gait Skin Pulmonary Skin Exam: Positive intact; negative lesion, ulcers, dermal atrophy or rash Pulses Pulse: Yes Pedal pulses present: Extremities Extremities: No clubbing, No cyanosis, Yes edema Location: lower extremity Neuro Neurologic: Yes conversant, Yes no focal neuro deficits, Yes cooperative Lymph Lymphatic: No lymphadenopathy Psych Appearance: Positive grossly normal Mental Status: Positive mental status grossly normal Mood: Positive congruent mood Affect: Positive normal affect Coding Level of Care Code Off vis,est,level 4 Diagnoses Shortness of breath R06.02 DANYELL (obstructive sleep apnea) G47.33 Obesity E66.9 05/29/18 1400 <Electronically signed by Americo Nazario DO> Date Americo Feliciano Signature: Date (if applicable) CC: Nathanael Jones III, MD 12 LEAD ELECTROCARDIOGRAM Observed: 05/28/2018 Status: F Source: [place] 1:55 PM [facility] REPOSITORY [facility] Cardiovascular Services [address] [place] [address] 12 Lead EKG 05/25/18 1406 MR#: [id number] Acct: [id number] Name: KARLEEGRISELDAOLMAN Rep #: [id number] : 1935 82 From: David Ashton MD Attending Dr: Status: DEP ER Ordering Dr: Geo Cristina MD Date: 05/25/18 Location: ED Sex: M C Admitted: Test Reason : SOB Blood Pressure : / mmHG Vent. Rate : 084 BPM Atrial Rate : 084 BPM P-R Int : 138 ms QRS Dur : 128 ms QT Int : 378 ms P-R-T Axes : 046 -35 014 degrees QTc Int : 446 ms Sinus rhythm with Premature atrial complexes Left axis deviation Right bundle branch block Abnormal ECG Confirmed by POLI GUTIÉRREZ, DAVID ([id number]), research editor SANIA BELTRE ([id number]) on 05/28/2018 1:55:17 PM Referred By: TIM Confirmed By:DAVID ASHTON MD 05/28/18 1355 Date David Ashton MD CC: Nathanael Jones III, MD; Geo Cristina MD Signed DISCHARGE INSTRUCTION Observed: 05/25/2018 Status: F Source: [place] 4:30 PM [facility] Medical Records Department [address] [place] [address] Discharge Instruction 05/25/18 1512 MR#: [id number] Acct: [id number] Name: OLMAN REDDY Rep #: [id number] : 1935 82 From: Geo Cristina MD PCP: Nathanael Jones III, MD Status: DEP ER ED Disposition - Plan for ED Patient: Disposition: Home or Assisted Living Chief Complaint: Shortness of Breath Instructions: ED Dyspnea Shortness of Breath Referrals: Nathanael Jones III, MD [Primary Care Provider] - As soon as possible Additional Instructions: Your labs and exam are unremarkable today. I do not have a specific cause for your shortness of breath. Follow-up with your primary care physician. What to do if you have Problems For any increased pain, shortness of breath, bleeding, nausea or vomiting, chest pain, or any unexpected problems, contact your Primary Care Provider. Call [employer] [facility] ([phone]) or report to the closest Emergency Room. Call 911 if necessary. 05/25/18 1630 <Electronically signed by Geo Cristina MD> Date Geo Cristina MD Cosigner Signature (If Indicated): Date CC: Nathanael Jones III, MD EMERGENCY DEPARTMENT Observed: 05/25/2018 Status: F Source: [facility] SUMMARY 4:30 PM [facility] REPOSITORY [facility] Medical Records Department [address] [place] [address] Emergency Department Summary 05/25/18 1357 MR#: [id number] Acct: [id number] Name: OLMAN REDDY Rep #: [id number] : 1935 82 From: Geo Cristina MD PCP: Nathanael Jones III, MD Status: DEP ER - ER Visit Summary Date of Service: 05/25/18 Chief Complaint: Admitted shortness of breath History of Present Illness: The patient is a 82 M history of CAD with cardiac stent. Insulin-dependent diabetes, hypertension, high cholesterol. Previously had a mediastinoscopy with a complication of an aortic injury. Where he had to have aortic repair. Patient states he is minimally short of breath for 3+ weeks. 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 He denies any significant cough or fever. He denies any chest pain. No hemoptysis. No history of DVT or PE. No recent travel, surgery or immobilization. No calf pain or swelling. He said it is worse supine. Also with exertion. He is normally not on oxygen and denies any underlying lung disease. Physical Examination: Older male no acute distress. at bedside. Vital signs are stable afebrile. Pulse ox 95% on room air no signs of hypoxia. HEENT exam unremarkable. Neck nontender no lymphadenopathy. No JVD. Lungs clear to auscultation bilaterally. Heart regular rhythm no murmur rate of about 90 on my centimeters. Chest wall nontender. Abdomen soft and nontender. Normal bowel sounds no peritoneal signs. Patient is moving all 4 extremities. Calves are nontender without edema or cords. Neurologically he is awake and alert with no focal motor deficits. Test Results: CBC normal white count of 4. Hemoglobin 13. Letter lites unremarkable creatinine 1.3. Gap 7. Troponin normal. Chest x-ray normal cardiac silhouette and mediastinum unremarkable. Read by myself. Portable one view. EKG sinus rhythm rate 84 with a right bundle branch block. No change from prior EKG from February 2017. ED staff walked the patient without oxygen and his sats stayed 95% or better. Emergency Department Course and Treatment: Well-appearing older male complaining of dyspnea with basically an unremarkable exam. Treatment Plan: Repeat exam the patient is doing well at 1507. His exam is normal. He asked me if this could be stress I told him that is always a possibility. That we could not find a specific biologic cause. He and his are comfortable with him being discharged home to follow-up with his primary care physician. Disposition: Discharge Impression: Acute shortness of breath of uncertain etiology History of insulin-dependent diabetes, hypertension, coronary disease with a prior cardiac stent. This note was generated with OpenSynergy[employer] software. It may contain incorrect words, spelling, and punctuation that were not noted in review of the chart prior to signing ED Disposition - Plan for ED Patient: Chief Complaint: Shortness of Breath Referrals: Nathanael Jones III, MD [Primary Care Provider] - What to do if you have Problems For any increased pain, shortness of breath, bleeding, nausea or vomiting, chest pain, or any unexpected problems, contact your Primary Care Provider. Call [facility] ([phone]) or report to the closest Emergency Room. Call 911 if necessary. 05/25/18 1630 <Electronically signed by Geo Cristina MD> Date Geo Cristina MD Cosigner Signature (If Indicated): Date CC: Nathanael Jones III, MD CBC W/DIFF, AUTOMATED Collected: 05/25/2018 Status: F Source: [facility] 2:15 PM [facility] REPOSITORY TYPE CODE TESTS RESULT OUT OF RANGE REFERENCE UNITS LAB L100.1000 4.4-11.0 K/mm3 Normal WBC 4.4 LAB L100.1200 4.6-6.2 M/mm3 Low RBC 4.35 LAB L100.1300 13.0-16.5 g/dl Normal HGB 13.3 LAB L100.1400 40-54 % Normal HCT 40.2 LAB L100.1500 80-94 fL Normal MCV 92.4 LAB L100.1600 27.0-32.0 pg Normal MCH 30.6 LAB L100.1700 32-36 g/gl Normal MCHC 33.1 LAB L100.1810 11.6-14.6 % Normal RDW CV 13.9 LAB L100.1820 35.1-43.9 fl High RDW SD 45.6 LAB L100.1900 150-450 K/mm3 Normal PLT 225 LAB L100.2000 6.2-12.0 fl Normal MPV 9.1 LAB L100.2100 47-70 % Normal NEUT% 62.1 LAB L100.2200 19-41 % Normal LY% 25.0 LAB L100.2300 0-10 % Normal MONO% 9.3 LAB L100.2400 0-5 % Normal EO% 2.0 LAB L100.2500 0-1 % Normal BASO% 0.9 LAB L100.2550 0.0-0.9 % Normal IM GRAN % 0.700 Result Comment: IG% - Immature Granulocytes (promyelocytes, myelocytes and metamyelocytes) > 1% indicates that a LEFT SHIFT is Present. LAB L100.2620 2.0-7.7 X10 3/uL Normal Absolute Neut 2.7 LAB L100.2720 0.83-4.51 X10 3/ul Normal Absolute Lymph 1.10 Performed By: #### L100.0100 #### [facility] [address] [place], [address] BASIC METABOLIC Collected: 05/25/2018 Status: F Source: [facility] PROFILE (BMP) 2:15 PM [facility] REPOSITORY TYPE CODE TESTS RESULT OUT OF RANGE REFERENCE UNITS LAB L501.0100 74-106 mg/dL High GLU 173 Result Comment: Fasting Glucose result greater than or equal to 126 mg/dL suggests DIABETES MELLITUS per A.D.A. criteria. Please note revised GLUCOSE reference range effective 2017. LAB L501.1000 7-18 mg/dL High BUN 24 LAB L501.1100 0.70-1.30 mg/dL High CREAT,SERUM 1.35 Result Comment: The validity of the calculated GFR AND GFRAA in patients over 70 years has not been determined. Clinical correlation is essential. LAB L501.1110 >60 mL/min Low EST GFR 54 Result Comment: Non- GFR Calc LAB L501.1115 >60 mL/min Normal EST GFR - AA 65 Result Comment: GFR Calc LAB L501.1255 ml/min Normal Estimated CRCL 36.54 LAB L501.1300 10-20 RATIO Normal BUN/CRE 17.8 LAB L501.2200 8.5-10 mg/dL Normal .1 CA 9.4 LAB L501.5300 136-14 mmol/L Normal 5 NA 137 LAB L501.5600 3.5-5. mmol/L Normal 1 K 5.1 Result Comment: Moderate Hemolysis, Result may be falsely increased. LAB L501.5900 98-107 mmol/L Normal CL 104 LAB L501.6100 21.0-32.0 mmol/L Normal CO2 26.0 LAB L501.6200 5-15 Normal 7 GAP Performed By: #### L500.2500, L501.4010 #### [facility] [address] [place], [address] TROPONIN-I Collected: 05/25/2018 Status: F Source: [place] 2:15 PM [facility] REPOSITORY TYPE CODE TESTS RESULT OUT OF RANGE REFERENCE UNITS LAB L501.4010 <0.045 ng/mL Normal < 0.015 TROPONIN-I Result Comment: TROPONIN-I EXPECTED VALUES <0.045 Negative 0.045 - 0.590 Consistent with Cardiac Damage > OR = 0.600 Critical Value Not every elevated troponin is indicative of MT. These values should be used with clinical judgement in examining the patient's clinical picture for diagnosis. To establish a diagnosis of MT versus myocardial injury, there must be a demonstrated rise and/or fall in the troponin values, in addition to ischemic symptoms, EKG changes, new regional wall motion abnormality, and/or angiographical evidence. PLEASE NOTE: REFERENCE RANGES EDITED 17 Performed By: #### L500.2500, L501.4010 #### [facility] [address] [place], [address] CHEST 1 VIEW Observed: 05/25/2018 Status: F Source: [facility] (PORTABLE) 1:57 PM [facility] REPOSITORY [facility] Imaging Services [address] [place] [address] Chest 1 View (Portable) MR#: [id number] Acct: [id number] Name: OLMAN REDDY Rep #: [id number] : 1935 M 82 From: Jon Waters MD PCP: Nathanael Jones III, MD Status: PRE ER Study: Chest 1 View (Portable) Date of Exam: 05/25/18 Exam# [id number] Ordering Dr: Geo Cristina MD STUDY: X-RAY CHEST REASON FOR EXAM: Male, 82 years old. Chest pain and shortness of breath. TECHNIQUE: Single AP portable view of the chest. COMPARISON: Comparison is made with prior study January 20, 2017. FINDINGS: EKG electrodes are seen. Since prior study, there has been a progression of the increased markings in the lingular segment of the left upper lobe. This may represent either infiltration and/or scarring. The right lung is unchanged. Sternal cerclage wires and vascular clips are present from a prior sternotomy and coronary artery bypass graft procedure (CABG). Cardiomegaly. Normal mediastinum and connie. Normal visualized pulmonary arteries. There is atherosclerotic calcification of the aortic arch with tortuosity. Normal visualized thoracic spine. Normal visualized ribs, clavicles, and shoulders. Moderate sized hiatal hernia. RAD/Chest 1 View (Portable) IMPRESSION: Since prior study, there has been progressive scarring and/or atelectasis in the lingular segment of the left upper lobe. Electronically Signed: Jon Waters MD at 14:23 EST Tel [phone], Service support , CC: Nathanael Jones III, MD; Geo Cristina MD Sludge Filtration Operator: Signed CBC-COMPLETE BLOOD CNT Collected: 05/21/2018 Status: F Source: [place] NO DIFF 9:16 AM [facility] REPOSITORY TYPE CODE TESTS RESULT OUT OF RANGE REFERENCE UNITS LAB L100.1000 4.4-11.0 K/mm3 Normal WBC 4.6 LAB L100.1200 4.6-6.2 M/mm3 Low RBC 4.49 LAB L100.1300 13.0-16.5 g/dl Normal HGB 13.3 LAB L100.1400 40-54 % Normal HCT 41.5 LAB L100.1500 80-94 fL Normal MCV 92.4 LAB L100.1600 27.0-32.0 pg Normal MCH 29.6 LAB L100.1700 32-36 g/gl Normal MCHC 32.0 LAB L100.1810 11.6-14.6 % Normal RDW CV 13.8 LAB L100.1820 35.1-43.9 fl High RDW SD 46.6 LAB L100.1900 150-450 K/mm3 Normal PLT 188 LAB L100.2000 6.2-12.0 fl Normal MPV 9.0 Performed By: #### L100.0500 #### [facility] [address] [place], [place], [id number] BASIC METABOLIC Collected: 05/21/2018 Status: F Source: [place] PROFILE (BMP) 9:16 AM [facility] REPOSITORY TYPE CODE TESTS RESULT OUT OF RANGE REFERENCE UNITS LAB L501.0100 74-106 mg/dL High GLU 184 Result Comment: Fasting Glucose result greater than or equal to 126 mg/dL suggests DIABETES MELLITUS per A.D.A. criteria. Please note revised GLUCOSE reference range effective 2017. LAB L501.1000 7-18 mg/dL High BUN 27 LAB L501.1100 0.70-1.30 mg/dL High CREAT,SERUM 1.52 Result Comment: The validity of the calculated GFR AND GFRAA in patients over 70 years has not been determined. Clinical correlation is essential. LAB L501.1110 >60 mL/min Low EST GFR 47 Result Comment: Non- GFR Calc LAB L501.1115 >60 mL/min Low EST GFR - AA 57 Result Comment: GFR Calc LAB L501.1300 10-20 RATIO Normal BUN/CRE 17.8 LAB L501.2200 8.5-10.1 mg/dL CA Normal 9.3 LAB L501.5300 136-145 mmol/L NA Normal 138 LAB L501.5600 3.5-5.1 mmol/L K Normal 4.5 LAB L501.5900 98-107 mmol/L CL Normal 105 LAB L501.6100 21.0-32.0 mmol/L Normal CO2 23.0 LAB L501.6200 5-15 Normal GAP 10 Performed By: #### L500.2500 #### [facility] [address] [facility] [address] [place], [place], [address] BNP,B-TYPE NATRIURETIC Collected: 05/21/2018 Status: F Source: [place] PEPTIDE 9:16 AM [facility] REPOSITORY TYPE CODE TESTS RESULT OUT OF RANGE REFERENCE UNITS LAB L503.6620 0-100 pg/mL Normal B-TYPE 35.5 LUIZA PEP Performed By: #### L503.6620 #### [facility] [address] [place], [address] CARDIOLOGY VISIT Observed: 05/21/2018 Status: F Source: [place] REPORT 8:41 AM [facility] REPOSITORY [facility] [address] [place] [address] OFFICE VISIT Date of Service: 05/14/18 MR#: [id number] Acct: [id number] Name: OLMAN REDDY Rep #: [id number] : 1935 Provider: Audelia Espinoza Age/Sex: 82/M Location: [facility] Status: Signed HPI HPI Chief Complaint: Follow up Details: OLMAN REDDY, is a 82 M who presents to the office today for an urgent appointment. He has a history of coronary artery disease status post angioplasty and stenting of his left anterior descending artery in 2015. He also has a history of hypertension and hyperlipidemia. In 2015 he underwent a cardiac catheterization in June as well as February which demonstrated widely patent stents and no obstructive coronary disease. Pt was in to see us earlier this month and noted chest pain. This had just started over the last few days. He was given Isosorbide for this. This did help with the discomfort. This morning at approx 4 am he noted SOB and he could not lay down and catch his breath. He had called us earlier and denied appt that was offered. He called back with continued concerns over SOB. He feels like he cant catch his breath all the time. It is worse when he lays down. He does not have any palpitations that he is aware of. He does not have any does have some lightheadedness. He does have a headache. He sts that he felt like this prior to his stent a few years ago. 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 Accompanied by: Is patient in pain?: No Allergies pioglitazone HCl [From [employer]] Adverse Reaction (Verified 05/14/18 16:06) Upset Stomach Medications Levothyroxine [Synthroid] 50 mcg PO DAILY 01/05/14 [History Confirmed 05/14/18] Metformin HCl [Glucophage] 1,000 mg PO BIDCM 01/05/14 [History Confirmed 05/14/18] Pravastatin [Pravachol] 20 mg PO DAILY 01/05/14 [History Confirmed 05/14/18] Cholecalciferol (Vitamin D3) [Vitamin D3] 5,000 unit PO DAILY 06/29/15 [History Confirmed 05/14/18] Finasteride [Proscar] 5 mg PO DAILY 06/29/15 [History Confirmed 05/14/18] Insulin NPH/Reg 70/30 [Novolin 70/30] 36 units SC DINNER 06/29/15 [History Confirmed 05/14/18] Insulin NPH/Reg 70/30 [Novolin 70/30] 50 units SC BREAKFAST 06/29/15 [History Confirmed 05/14/18] Pantoprazole Sodium [Protonix] 40 mg PO DAILY 06/29/15 [History Confirmed 05/14/18] Aspirin [Adult Low Dose Aspirin EC] 81 mg PO DAILY 07/24/15 [History Confirmed 05/14/18] clopidogrel 75 mg tablet 75 mg PO DAILY #90 tab 08/15/17 [Rx Confirmed 05/14/18] furosemide 40 mg tablet 40 mg PO DAILY #90 tab 09/06/17 [Rx Confirmed 05/14/18] losartan 50 mg tablet 50 mg PO QDAY #90 tab 09/06/17 [Rx Confirmed 05/14/18] isosorbide mononitrate ER 30 mg tablet,extended release 24 hr 30 mg PO DAILY #90 tab 04/19/18 [Rx Confirmed 05/14/18] naproxen 500 mg tablet 500 mg PO BID 04/19/18 [History Confirmed 05/14/18] amlodipine 5 mg tablet 5 mg PO DAILY #30 tab 05/14/18 [Rx Confirmed 05/14/18] meloxicam 15 mg tablet 7.5 mg PO BID tab 05/14/18 [History Confirmed 05/14/18] Ejection fraction %: 55 to 59 PFSH Medical History Diabetes mellitus (Chronic) BMI 40.0-44.9, adult (Chronic) Dyspnea (Chronic) Cough (Chronic) Shortness of breath (Chronic) Obesity (Chronic) Upper respiratory infection (Resolved) Right flank pain (Resolved) Atherosclerotic heart disease of [place] coronary artery without angina pectoris (Chronic) 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 (Chronic) 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) Palpitations (Chronic) Nonrheumatic tricuspid (valve) insufficiency (Chronic) Obstructive sleep apnea of adult (Chronic) Hypothyroid (Chronic) Diabetes mellitus type 2 in obese (Chronic) Hypertension (Chronic) Nephrolithiasis (Chronic) GERD (gastroesophageal reflux disease) (Chronic) Benign prostatic hypertrophy (Chronic) Appendicitis (Resolved) Coronary artery disease (Chronic) Chest pain (Resolved) HLD (hyperlipidemia) (Chronic) Anemia (Resolved) Surgical History Status post angioplasty with stent (Chronic) S/P PTCA (percutaneous transluminal coronary angioplasty) (Chronic) History of lymph node biopsy (Chronic) History of appendectomy (Resolved) History of back surgery (Resolved) History of open heart surgery (Resolved) Family History Mother CAD (coronary artery disease) Brother CAD (coronary artery disease) Myocardial infarction Daughter Asthma Father Cancer bone cancer Sister Breast cancer Sister Cardiomyopathy Social History Smoking Status: Former smoker pack-years: 2 how long ago did patient quit smokin years ago second hand exposure: No alcohol intake: never substance use type: does not use caffeine: Yes Type: coffee Number of servings: 2 what type of physical activity do you participate in: none seatbelt use: always do you feel safe at home: Yes ROS Const Const: Positive for fatigue; negative for weakness, fever(s) or headache(s) Eyes Eyes: Negative for blind spots, loss of peripheral vision or transient loss of vision ENT ENT: Negative for headache(s), dizziness, tinnitus or Nosebleed/epistaxis Cardio Palpitations: No Edema: None Muscle aches with walking: None Resp Respiratory: Positive for SOB with activity and SOB orthopnea\SOB lying down; negative for SOB at rest or Cough GI GI: Negative nausea, vomiting, heartburn or vomiting blood/hematemesis : Negative for hematuria Musc Musc: Negative for muscle aches/ myalgia Neuro Neuro: Negative for weakness, headache(s), dizziness, near syncope, syncope, lightheadedness or orthostatic symptoms J Luis Hematologic/Lymphatic: Negative for easy bleeding Endo Endo: Positive for fatigue Cardiology Exam Const Appearance: cooperative, healthy appearing, well developed, well groomed and no acute distress Nutritional Appearance: well nourished and average body habitus Orientation: alert, awake and oriented x3 Head Head: normal to inspection, normocephalic and atraumatic Ears: hearing grossly normal bilaterally and external ears normal Nose: external nose normal, nasal mucous membranes and turbinates normal, nares normal, septum normal, no nasal discharge Face and Sinus: face symmetric Mouth: oral mucosae normal, tongue normal, oropharynx normal and moist mucous membranes Teeth and gingiva: dentition normal Throat: posterior oropharynx normal, tonsils normal and uvula midline Eyes General: appearance normal, both eyes and all related structures Eyelids: eyelids normal Conjunctivae: conjunctivae normal Pupils: PERRL, normal by confrontation and accommodation normal EOM: EOM intact bilaterally Neck Neck: normal visual inspection, trachea midline and no JVD JVD: +5 Carotids: normal carotid upstroke and bounding pulses Chest Chest inspection: normal inspection of the chest, symmetric chest movement and normal respiratory effort Auscultation: Bilateral: Clear to Auscultation Cardio Palpation: normal PMI Rate: regular rate Rhythm: regular rhythm Heart sounds: S1 normal, S2 normal and normal, physiologic split S2; negative rub, gallop or murmur GI GI: normal to inspection, soft, no hepatosplenomegaly and bowel sounds present Neuro General: alert, awake, oriented x3, no focal sensory deficit, gait normal and moves all extremities Skin Skin: no rashes or lesions noted Extremities Pulses: Normal: Right Femoral Pulse, Left Femoral Pulse, Right Dorsalis Pedis Pulse, Left Dorsalis Pedis Pulse, Right Posterior Tibial Pulse, Left Posterior Tibial Pulse, Right Radial Pulse, Left Radial Pulse Lower Extremity Edema: None: Bilateral Musculoskel Musculoskeletal: No joint tenderness Psych Psychological: normal affect Supplemental Info Echocardiogram done in 2017 demonstrated: Left ventricular systolic function is normal. The estimated ejection fraction is 55 %. The left atrium is mildly enlarged. Trivial mitral valve insufficiency. Trivial tricuspid valve insufficiency. Mild focal aortic valve calcification. Unable to estimate RV systolic pressure/pulmonary artery pressure due to technically difficult study. Diastolic function is indeterminate. Heart catheterization done in February 2016 demonstrated angiographically normal left main, LAD previously placed stent patent. Circumflex codominant large no significant stenosis. Dominant RCA no significant stenosis. Assessment AND Plan 1. Coronary artery disease involving [place] coronary artery of [place] heart without angina pectoris I25.10 Plan - NEERAJ Bowman Patient does have symptoms that could be concerning for angina. Will add Norvasc. This will also help with his blood pressure. We will also obtain a pharmacologic nuclear stress test in the near future. He will continue with his current dose of isosorbide. Will follow up accordingly after a stress test. Orders Orders: 2. Hypertension I10 Plan - NEERAJ Bowman Blood pressure is elevated today. Will have him start Norvasc at 5 mg daily. We will continue to monitor and adjust accordingly. 3. Pure hypercholesterolemia E78.00 Plan - NEERAJ Bowman Patient will continue with his low-dose statin. Plan Detail Other Orders Orders: Other Medications New: Additional Comments - NEERAJ Bowman The above patient was discussed with Dr. Ashton, he agrees with plan of care. Thank you for allowing us to participate in patient's plan of care, if you have any questions please do not hesitate to call. This note was generated using a voice recognition system and there may be incorrect words, spelling or punctuation errors that were not noted when reviewing the office note prior to saving. 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 transplanted heart: [place] heart Associated angina: without angina Hypertension I10 Hypertension type: essential hypertension Pure hypercholesterolemia E78.00 Hyperlipidemia type: pure hypercholesterolemia 05/17/18 1417 <Electronically signed by Audelia PICKARD> Date Audelia PICKARD 05/21/18 0841<Electronically signed by David Ashton MD> Cosigner Signature: Date (if applicable) David Ashton MD CC: Nathanael Jones III, MD 6 MINUTE WALK TEST Observed: 05/08/2018 Status: F Source: [place] 12:39 PM [facility] REPOSITORY [facility] Pulmonary Services/Neurology [address] [place] [address] MR#: [id number] Acct: [id number] Name: OLMAN REDDY Rep #: [id number] : 1935 82 From: Yobani Durbin MD Referring Dr: Lela Sherman WANT AD RECEIVER Date: Ordering Dr: Iván: Libia Graham Location: PSN PSN 6 Minute Walk Test - 6 Minute Walk Test 6 Minute Walk Test: 6 Minute Walk Test PSN:6-Minute Walk Test Start: 03/13/18 12:49 Freq: Status: Active Protocol: RESP.6MINW Document 03/13/18 12:49 SFENTON (Rec: 03/13/18 12:51 SFENTON [id number]) 6 Minute Walk Test Date Performed 03/13/18 Time Performed 12:35 Height 5 ft 4 in Weight: 108.862 kg Weight in Pounds 240.[address]: Lela Sherman Assistive device used: None Pre-test Oxygen Delivery Method Room Air Pulse Ox (%) 97 Pulse Rate (60-100 beats/min) 79 Dyspnea Janae Scale (0-10) 1 Exertion Janae Scale (6-20) 6 1st minute Oxygen Delivery Method Room Air Pulse Ox (%) 96 Pulse Rate (60-100 beats/min) 93 2nd minute Oxygen Delivery Method Room Air Pulse Ox (%) 94 Pulse Rate (60-100 beats/min) 103 H 3rd minute Oxygen Delivery Method Room Air Pulse Ox (%) 93 Pulse Rate (60-100 beats/min) 108 H 4th minute Oxygen Delivery Method Room Air Pulse Ox (%) 94 Pulse Rate (60-100 beats/min) 113 H 5th minute Oxygen Delivery Method Room Air Pulse Ox (%) 93 Pulse Rate (60-100 beats/min) 111 H 6th minute Oxygen Delivery Method Room Air Pulse Ox (%) 92 Pulse Rate (60-100 beats/min) 121 H Dyspnea Janae Scale (0-10) 5 Exertion Janae Scale (6-20) 14 Post-test Oxygen Delivery Method Room Air Pulse Ox (%) 97 Pulse Rate (60-100 beats/min) 78 Full Laps Walked 13 Partial Lap, Number of Tiles Walked 30 Total Distance Walked (ft) 797 - Interpretation Interpretation: The patient was able to ambulate 797 feet over the course of 6 minutes on room air with no assistive devices or breaks. The patient did have significant desaturation from a baseline of 97%, to as low as 92% with ambulation. Patient did have significant tachycardia with a peak heart rate of 121 bpm. These findings are consistent with a cardiovascular limitation exercise tolerance. - Recommendations Recommendations: No supplemental oxygen is indicated at this time. However, patient should be followed closely given level of desaturation. 05/08/18 1239 <Electronically signed by Yobani Durbin MD> Date Yobani Durbin MD CC: Date Dictated: 03/13/18 1541 Date Transcribed: 03/13/18 154 [employer] Fil[employer] Operator: Yobani Durbin Signed CARDIOLOGY VISIT Observed: 04/19/2018 Status: F Source: [facility] RE[facility] 2:36 PM [facility] REPOSITORY [facility] [address] [place] [address]. [address] [place] [address] OFFICE VISIT Date of Service: 04/19/18 MR#: [id number] Acct: [id number] Name: OLMAN REDDY Rep #: [id number] : 1935 Provider: David Ashton MD Age/Sex: 82/M Location: [facility] Status: Signed HPI HPI Chief Complaint: Follow up Details: OLMAN REDDY, is a 82 M who presents to the office today for a follow-up cardiovascular visit. He has a history of coronary artery disease status post Juju plasty and stenting of his left anterior descending artery in 2016. He also has a history of hypertension and hyperlipidemia. He has been having occasional chest discomfort which he says has been going on for approximately 2 days. He has not taken any nitroglycerin he describes this as sharp. In 2016 he underwent a cardiac catheterization in June as well as February which demonstrated widely patent stents and no obstructive coronary disease. He has not had any dizziness no paroxysmal nocturnal dyspnea or pedal edema his electrocardiogram done today demonstrates a normal sinus rhythm with a rate of 71 bpm and a right bundle branch block pattern. His physical exam demonstrates clear lung johnson regular rate and rhythm and no pedal edema. 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 Accompanied by: Is patient in pain?: Yes Allergies pioglitazone HCl [From [employer]] Adverse Reaction (Verified 04/19/18 14:01) Upset Stomach Medications Levothyroxine [Synthroid] 50 mcg PO DAILY 01/05/14 [History Confirmed 04/19/18] Metformin HCl [Glucophage] 1,000 mg PO BIDCM 01/05/14 [History Confirmed 04/19/18] Pravastatin [Pravachol] 20 mg PO DAILY 01/05/14 [History Confirmed 04/19/18] Cholecalciferol (Vitamin D3) [Vitamin D3] 5,000 unit PO DAILY 06/29/15 [History Confirmed 04/19/18] Finasteride [Proscar] 5 mg PO DAILY 06/29/15 [History Confirmed 04/19/18] Insulin NPH/Reg 70/30 [Novolin 70/30] 36 units SC DINNER 06/29/15 [History Confirmed 04/19/18] Insulin NPH/Reg 70/30 [Novolin 70/30] 50 units SC BREAKFAST 06/29/15 [History Confirmed 04/19/18] Pantoprazole Sodium [Protonix] 40 mg PO DAILY 06/29/15 [History Confirmed 04/19/18] Aspirin [Adult Low Dose Aspirin EC] 81 mg PO DAILY 07/24/15 [History Confirmed 04/19/18] clopidogrel 75 mg tablet 75 mg PO DAILY #90 tab 08/15/17 [Rx Confirmed 04/19/18] furosemide 40 mg tablet 40 mg PO DAILY #90 tab 09/06/17 [Rx Confirmed 04/19/18] losartan 50 mg tablet 50 mg PO QDAY #90 tab 09/06/17 [Rx Confirmed 04/19/18] isosorbide mononitrate ER 30 mg tablet,extended release 24 hr 30 mg PO DAILY #90 tab 04/19/18 [Rx Confirmed 04/19/18] naproxen 500 mg tablet 500 mg PO BID 04/19/18 [History Confirmed 04/19/18] [facility] Medical History Diabetes mellitus (Chronic) BMI 40.0-44.9, adult (Chronic) Dyspnea (Chronic) Cough (Chronic) Shortness of breath (Chronic) Obesity (Chronic) Upper respiratory infection (Resolved) Right flank pain (Resolved) Atherosclerotic heart disease of [place] coronary artery without angina pectoris (Chronic) 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 (Chronic) halfway use of drug (Chronic) Palpitations (Chronic) Nonrheumatic tricuspid (valve) insufficiency (Chronic) Obstructive sleep apnea of adult (Chronic) Hypothyroid (Chronic) Diabetes mellitus type 2 in obese (Chronic) Hypertension (Chronic) Nephrolithiasis (Chronic) GERD (gastroesophageal reflux disease) (Chronic) Benign prostatic hypertrophy (Chronic) Appendicitis (Acute) Coronary artery disease (Chronic) Chest pain (Acute) HLD (hyperlipidemia) (Chronic) Anemia (Resolved) Surgical History Status post angioplasty with stent (Chronic) S/P PTCA (percutaneous transluminal coronary angioplasty) (Chronic) History of appendectomy (Resolved) History of back surgery (Resolved) Family History Mother CAD (coronary artery disease) Brother CAD (coronary artery disease) Myocardial infarction Daughter Asthma Father Cancer brain cancer Sister Breast cancer Sister Cardiomyopathy Social History Smoking Status: Former smoker pack-years: 2 second hand exposure: No alcohol intake: never substance use type: does not use caffeine: Yes Type: coffee what type of physical activity do you participate in: none seatbelt use: always do you feel safe at home: Yes ROS Const Const: Positive for headache(s) (for past two weeks); negative for fatigue, weakness, night sweats, excessive sweating, frequent falls or daytime sleepiness Eyes Eyes: Negative for loss of peripheral vision, transient loss of vision, blind spots, double vision or blurry vision ENT ENT: Positive for headache(s) (for past two weeks); negative for dizziness, balance problems, Nosebleed/epistaxis, tongue swelling or lip swelling Cardio Frequency: more than once a day Character: sharp Onset: at rest, exercise Location: mid sternal Duration: hours Palpitations: No Edema: None Muscle aches with walking: None Resp Respiratory: Positive for SOB at rest and SOB with activity; negative for SOB orthopnea\SOB lying down, Cough or paroxysmal nocturnal dyspnea GI GI: Negative nausea, vomiting, heartburn, black,tarry stools or bright, red blood in stools : Negative for hematuria Musc Musc: Negative for balance problems, muscle aches/ myalgia, muscle weakness or joint pain Skin Skin: Negative non-healing lesions, unusual bruising or rash Neuro Neuro: Positive for headache(s) (for past two weeks); negative for weakness, frequent falls, double vision, dizziness, lightheadedness, orthostatic symptoms, blurry vision or lack of coordination J Luis Hematologic/Lymphatic: Negative for easy bruising or easy bleeding Endo Endo: Negative for fatigue, excessive sweating, cold intolerance, heat intolerance, increased thirst/drinking or hair loss Psych Psych: Negative for anxiety or depression Allergy Allergy/Immunology: Negative for throat swelling, Negative for tongue swelling, Negative for hives, Negative for rash, Negative for lip swelling Cardiology Exam Const Appearance: cooperative, healthy appearing, well developed, well groomed and no acute distress Nutritional Appearance: well nourished and average body habitus Orientation: alert, awake and oriented x3 Head Head: normal to inspection, normocephalic and atraumatic Ears: hearing grossly normal bilaterally and external ears normal Nose: external nose normal, nasal mucous membranes and turbinates normal, nares normal, septum normal, no nasal discharge Face and Sinus: face symmetric Mouth: oral mucosae normal, tongue normal, oropharynx normal and moist mucous membranes Teeth and gingiva: dentition normal Throat: posterior oropharynx normal, tonsils normal and uvula midline Eyes General: appearance normal, both eyes and all related structures Eyelids: eyelids normal Conjunctivae: conjunctivae normal Pupils: PERRL, normal by confrontation and accommodation normal EOM: EOM intact bilaterally Neck Neck: normal visual inspection, trachea midline and no JVD JVD: +5 Carotids: normal carotid upstroke and bounding pulses Chest Chest inspection: normal inspection of the chest, symmetric chest movement and normal respiratory effort Auscultation: Bilateral: Clear to Auscultation Cardio Palpation: normal PMI Rate: regular rate Rhythm: regular rhythm Heart sounds: S1 normal, S2 normal and normal, physiologic split S2; negative rub, gallop or murmur GI GI: normal to inspection, soft, no hepatosplenomegaly and bowel sounds present Neuro General: alert, awake, oriented x3, no focal sensory deficit, gait normal and moves all extremities Skin Skin: no rashes or lesions noted Extremities Pulses: Normal: Right Femoral Pulse, Left Femoral Pulse, Right Dorsalis Pedis Pulse, Left Dorsalis Pedis Pulse, Right Posterior Tibial Pulse, Left Posterior Tibial Pulse, Right Radial Pulse, Left Radial Pulse Lower Extremity Edema: None: Bilateral Musculoskel Musculoskeletal: No joint tenderness Psych Psychological: normal affect Assessment AND Plan 1. Chest pain R07.9 Plan He does have a history of chest pain. This is somewhat atypical. He underwent a cardiac catheterization twice in 2015 with no significant stenosis noted. I recommend that we empirically put him on isosorbide 30 mg a day and see how he responds to the above. A recent echocardiogram which was performed demonstrated preserved ejection fraction of 55% with no wall motion abnormalities noted. The results have been communicated to him. Orders Orders: 2. S/P PTCA (percutaneous transluminal coronary angioplasty) Z98.61 PTCA/RUDDY to proximal/ostial LAD 07/01/2015 Plan His last catheterization in February 2016 demonstrated patency of the LAD stent. There is no reason to repeat the above or any need for intervention at this time. 3. Hypertension I10 Plan His blood pressure appears to be under good control at this particular time. No changes will need to be made. 4. Pure hypercholesterolemia E78.00 Plan He does have a history of hyperlipidemia and will continue with risk factor modification. He is on pravastatin 20 mg a day. His most recent lipid profile demonstrated total cholesterol 161, triglycerides of 279, LDL of 70, and HDL 35. Thank you for allowing me to participate in the care of your patient. Please don't hesitate to call if any issues arise Plan Detail Other Orders Orders: Other Medications New: Follow Up 6 Months (mmm) Coding Level of Care Code Off vis,est,level 4 Diagnoses Chest pain R07.9 S/P PTCA (percutaneous transluminal coronary angioplasty) Z98.61 Hypertension I10 Hypertension type: essential hypertension Pure hypercholesterolemia E78.00 Hyperlipidemia type: pure hypercholesterolemia Coding Level of Care Code Off vis,est,level 4 Diagnoses Chest pain R07.9 S/P PTCA (percutaneous transluminal coronary angioplasty) Z98.61 Hypertension I10 Hypertension type: essential hypertension Pure hypercholesterolemia E78.00 Hyperlipidemia type: pure hypercholesterolemia 04/19/18 1436 <Electronically signed by David Ashton MD> Date David Ashton MD Cosigner Signature: Date (if applicable) CC: Nathanael Jones III, MD 12 LEAD EKG PERFORMED Observed: 04/19/2018 Status: F Source: [facility] 2:07 PM [facility] REPOSITORY [address] [address] 12 Lead EKG performed by [facility] 04/19/181405 MR#: [id number] Acct: [id number] Name: OLMAN REDDY Rep #: [id number] : 1935 82 From: David Ashton MD Attending Dr: David Ashton MD Status: DEP AMB Ordering Dr: David Ashton MD Date: 04/19/18 [place] [facility] [place]: M C Admitted: [facility]/12 Lead EKG performed by [facility] Sinus Rhythm - occasional PAC # PACs = 1.-Right bundle branch block. 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: CO Signed LIVER PROFILE Collected: 04/09/2018 Status: F Source: [facility] 8:32 AM [facility] REPOSITORY TYPE CODE TESTS RESULT OUT OF RANGE REFERENCE UNITS LAB L501.1500 6.4-8.2 g/dL Normal T PROT 7.1 LAB L501.1800 3.2-5.0 g/dL Normal ALB 3.8 LAB L501.1950 2.2-4.2 g/dL Normal GLOB 3.3 LAB L501.4100 15-37 U/L Normal AST 31 LAB L501.4305 45-117 U/L Low ALK P 35 LAB L501.4405 16-61 U/L Normal ALT 49 LAB L501.4600 0.20-1.00 mg/dL Normal T BILI 0.80 LAB L501.4700 0.00-0.30 mg/dL Normal D BILI 0.16 Performed By: #### L500.3400, L500.4100 #### [facility] [address] [place], [place], [id number] LIPID PROFILE Collected: 04/09/2018 Status: F Source: [facility] 8:32 AM [facility] REPOSITORY TYPE CODE TESTS RESULT OUT OF RANGE REFERENCE UNITS LAB L501.4900 200 mg/dL Normal CHOL 161 Result Comment: <200 mg/dL Desirable 200-240 mg/dL Borderline >240 mg/dL High Risk LAB L501.5000 mg/dL High TRIG 279 Result Comment: The drugs N-Acetylcysteine and Metamizole may falsely depress this assay. Serum Triglycerides Reference Interval Normal <150 mg/dL Borderline high 150 - 199 mg/dL High 200 - 499 mg/dL Very High > or = 500 mg/dL LAB L501.6400 mg/dL Low HDL 35 Result Comment: The drugs N-Acetylcysteine and Metamizole may falsely depress this assay. Reference Range HDL <40 mg/dL Low HDL Cholesterol HDL >or= 60 mg/dL High HDL Cholesterol LAB L501.6500 0-130 mg/dL Normal LDL 70 LAB L501.6600 5-40 mg/dL High VLDL 56 Performed By: #### L500.3400, L500.4100 #### [facility] [address] [place], [place], [id number] PROGRESS Observed: 03/26/2018 Status: COMPLETED Source: [facility] 10:00 AM [facility] REPOSITORY O ID: [id number] Author: Nathanael Jones III Service: (none) Author Type: Physician Type: Progress Notes Filed: 03/26/2018 1:01 PM Note Text: SUBJECTIVE: This is a 82 year old male that is here today for 1. morbid obesity-has not had any significant weight loss. He is try to cut down on carbohydrates to help his diabetic control but does not get much exercise. 2. Diabetes mellitus type [address] 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 Hemoglobin A1c has dropped to 6.3 2. ch pain lower back and R post buttock to R foot/toes x 2 wks. Poor sleep due to pain. To have MRI LS spine. Has not been able to fish since October, because his back and RLE hurts more with walking up incline with fishing bucket. Under care of Dr Gayle, tx with mobic 15 mg and previous opiate w/o benefit. On tylenol 4 ext strength/day. Previous physical therapy was not particularly helpful for his low back pain but he is status post lumbar fusion of L2, L3, L4, and L5 in 2013. He states that his back pain is much improved in the physical therapy pool 3. previous pain in L post buttock--resolved. 4. ch pain R shoulder. With known rotator cuff tear. The orthopedist has not recommended surgery. He does have pain in the right shoulder but has been able to use the right arm somewhat. No chest pain, dyspnea on exertion, angina. No hypoglycemia. 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 07/07/2014 - Calculus of kidney - Diaphragmatic hernia without mention of obstruction or gangrene - Diverticulitis of colon (without mention of hemorrhage)(562.11) - Esophageal reflux - Essential hypertension, benign 01/28/2014 - Family history of colon cancer in mother 12/22/2014 - Family history of malignant neoplasm of gastrointestinal tract - GERD (gastroesophageal reflux disease) 04/19/2010 - History of left heart catheterization 06/30/2015 [facility] - see scanned documents - Hyperlipidemia LDL goal < 100 04/26/2011 - Hypothyroidism 08/21/2010 - Lumbago - Lumbar disc disease with radiculopathy 10/09/2013 - Morbid obesity (HCC) 04/23/2012 - Nonspecific (abnormal) findings on radiological and other examination of lung field - Osteoarthritis of hip 02/16/2010 - Other diseases of lung, not elsewhere classified PULMONARY NODULE - Snoring - Type II or unspecified type diabetes mellitus without mention of complication, not stated as uncontrolled - Unspecified asthma(493.90) - Unspecified constipation - Unspecified hemorrhoids without mention of complication - Vitamin D deficiency 07/05/2013 Current Outpatient Prescriptions on File Prior to Visit: pantoprazole DR (PROTONIX) 40 mg tablet TAKE ONE TABLET BY MOUTH ONCE DAILY levothyroxine (SYNTHROID) 50 mcg tablet Take 1 tablet by mouth once daily. pravastatin (PRAVACHOL) 20 mg tablet Take 1 tablet by mouth once daily. naproxen (NAPROSYN) 500 mg tablet Take 1 tablet by mouth twice daily as needed for Pain. Take with food. losartan (COZAAR) 50 mg tablet Take 1 tablet by mouth once daily. insulin 70/30 NPH/regular units/mL (HUMULIN 70/30, NOVOLIN 70/30) 52 units SQ ac breakfast and 38 units SQ ac supper (Patient taking differently: 50 units SQ ac breakfast and 40 units SQ ac supper ) furosemide (LASIX) 40 mg tablet Take 40 mg by mouth once daily. finasteride (PROSCAR) 5 mg tablet Take 5 mg by mouth once daily. clopidogrel (PLAVIX) 75 mg tablet Take 75 mg by mouth once daily. aspirin, enteric coated (ASPIRIN, ENTERIC COATED) 81 mg EC tablet Take 81 mg by mouth once daily. metFORMIN (GLUCOPHAGE) 500 mg tablet Take 2 tablets by mouth twice daily with meals. Cholecalciferol, Vitamin D3, (VITAMIN D-3) 2,000 unit cap Take 1 tablet by mouth once daily. tamsulosin ER (FLOMAX) 0.4 mg cp24 Take 1 capsule by mouth daily at bedtime. (Patient not taking: Reported on 03/26/2018 ) No current facility-administered medications on file prior to visit. FAMILY HISTORY Problem Relation Age of Onset - Cancer Father BRAIN - Heart Mother - Heart Brother - Breast Cancer Sister - Diabetes Sister - Colon Cancer Mother - other (testicular cancer [Other]) Son Social History Substance Use Topics - Smoking status: Former Smoker Packs/day: 1.00 Years: 5.00 Types: Cigarettes Quit date: 10/17/1964 - Smokeless tobacco: Never Used - Alcohol use No BP 130/78 (BP Site: Left Arm, BP Position: Sitting, BP Cuff Size: Large Adult) Pulse 72 Temp 36 ?C (96.8 ?F) (Left Tympanic) Resp 16 Wt 109.3 kg (241 lb) BMI 42.69 kg/m? . OBJECTIVE: APPEARANCE Well appearing, alert, in no acute distress, well-hydrated, well nourished. and Morbidly obese NECK Supple, no adenopathy; thyroid symmetric, normal size, no bruits HEART RRR with normal S1 and S2, no murmurs, no gallops, no JVD appreciated LUNG clear to auscultation ABDOMEN soft, non-tender, non-distended, without organomegaly or palpable masses, no tenderness to palpation BACK: No tenderness while palpating the LS spine midline. Forward flexion to the knees does not cause pain. Hyperextension does cause pain in the back but not radiating to the right foot. Right straight leg raise does cause pain in the right posterior buttock and lower back. Left straight leg raise negative EXTREMITIES no lower leg edema. Fair range of motion of both hips. Lab Results for OLMAN REDDY ( ) as of 03/26/2018 10:18 Ref. 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 diabetes mellitus II-- improved control vit D deficiency ASHD?stable Hypertension?at goal PLAN: healthy weight losing diet and regular exercise eat less sugar, bread, potato, pasta, rice, corn, corn syrup, saturated fats eat more salads--try spices reduce metformin 500mg before breakfast and before supper DO NOT TAKE METFORMIN ON THE DAY BEFORE MRI SCAN AND THE DAY OF THE MRI SCAN; RESUME METFORMIN 500MG BEFORE BREAKFAST AND BEFORE SUPPER THE DAY AFTER THE MRI SCAN same other medications return to office 6 mos with labs and as needed follow up with Dr Gayle and Dr Ashton as appointed had flu shot at Bradford Jones III MD CNOV Observed: 03/26/2018 Status: COMPLETED Source: [facility] 9:00 AM [facility] REPOSITORY Office Visit (FAMPWS) OLMAN REDDY ([id number]) 1935 M Date Time Provider Department 03/26/18 9:00 AM NATHANAEL JONES III During your visit today, we recorded the following information about you: Temperature Pulse Respiration Blood pressure 96.8 degrees 72/minute 16/minute 130/78 Weight 109.3 kg Nathanael Jones III MD 03/26/2018 1:01 PM Signed SUBJECTIVE: This is a 82 year old male that is here today for 1. morbid obesity-has not had any significant weight loss. He is try to cut down on carbohydrates to help his diabetic control but does not get much exercise. 2. Diabetes mellitus type [address] 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 Hemoglobin A1c has dropped to 6.3 2. ch pain lower back and R post buttock to R foot/toes x 2 wks. Poor sleep due to pain. To have MRI LS spine. Has not been able to fish since October, because his back and RLE hurts more with walking up incline with fishing bucket. Under care of Dr Gayle, tx with mobic 15 mg and previous opiate w/o benefit. On tylenol 4 ext strength/day. Previous physical therapy was not particularly helpful for his low back pain but he is status post lumbar fusion of L2, L3, L4, and L5 in 2013. He states that his back pain is much improved in the physical therapy pool 3. previous pain in L post buttock--resolved. 4. ch pain R shoulder. With known rotator cuff tear. The orthopedist has not recommended surgery. He does have pain in the right shoulder but has been able to use the right arm somewhat. No chest pain, dyspnea on exertion, angina. No hypoglycemia. 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 07/07/2014 - Calculus of kidney - Diaphragmatic hernia without mention of obstruction or gangrene - Diverticulitis of colon (without mention of hemorrhage)(562.11) - Esophageal reflux - Essential hypertension, benign 01/28/2014 - Family history of colon cancer in mother 12/22/2014 - Family history of malignant neoplasm of gastrointestinal tract - GERD (gastroesophageal reflux disease) 04/19/2010 - History of left heart catheterization 06/30/2015 [facility] - see scanned documents - Hyperlipidemia LDL goal < 100 04/26/2011 - Hypothyroidism 08/21/2010 - Lumbago - Lumbar disc disease with radiculopathy 10/09/2013 - Morbid obesity (HCC) 04/23/2012 - Nonspecific (abnormal) findings on radiological and other examination of lung field - Osteoarthritis of hip 02/16/2010 - Other diseases of lung, not elsewhere classified PULMONARY NODULE - Snoring - Type II or unspecified type diabetes mellitus without mention of complication, not stated as uncontrolled - Unspecified asthma(493.90) - Unspecified constipation - Unspecified hemorrhoids without mention of complication - Vitamin D deficiency 07/05/2013 Current Outpatient Prescriptions on File Prior to Visit: pantoprazole DR (PROTONIX) 40 mg tablet TAKE ONE TABLET BY MOUTH ONCE DAILY levothyroxine (SYNTHROID) 50 mcg tablet Take 1 tablet by mouth once daily. pravastatin (PRAVACHOL) 20 mg tablet Take 1 tablet by mouth once daily. naproxen (NAPROSYN) 500 mg tablet Take 1 tablet by mouth twice daily as needed for Pain. Take with food. losartan (COZAAR) 50 mg tablet Take 1 tablet by mouth once daily. insulin 70/30 NPH/regular units/mL (HUMULIN 70/30, NOVOLIN 70/30) 52 units SQ ac breakfast and 38 units SQ ac supper (Patient taking differently: 50 units SQ ac breakfast and 40 units SQ ac supper ) furosemide (LASIX) 40 mg tablet Take 40 mg by mouth once daily. finasteride (PROSCAR) 5 mg tablet Take 5 mg by mouth once daily. clopidogrel (PLAVIX) 75 mg tablet Take 75 mg by mouth once daily. aspirin, enteric coated (ASPIRIN, ENTERIC COATED) 81 mg EC tablet Take 81 mg by mouth once daily. metFORMIN (GLUCOPHAGE) 500 mg tablet Take 2 tablets by mouth twice daily with meals. Cholecalciferol, Vitamin D3, (VITAMIN D-3) 2,000 unit cap Take 1 tablet by mouth once daily. tamsulosin ER (FLOMAX) 0.4 mg cp24 Take 1 capsule by mouth daily at bedtime. (Patient not taking: Reported on 03/26/2018 ) No current facility-administered medications on file prior to visit. FAMILY HISTORY Problem Relation Age of Onset - Cancer Father BRAIN - Heart Mother - Heart Brother - Breast Cancer Sister - Diabetes Sister - Colon Cancer Mother - other (testicular cancer [Other]) Son Social History Substance Use Topics - Smoking status: Former Smoker Packs/day: 1.00 Years: 5.00 Types: Cigarettes Quit date: 10/17/1964 - Smokeless tobacco: Never Used - Alcohol use No BP 130/78 (BP Site: Left Arm, BP Position: Sitting, BP Cuff Size: Large Adult) Pulse 72 Temp 36 ?C (96.8 ?F) (Left Tympanic) Resp 16 Wt 109.3 kg (241 lb) BMI 42.69 kg/m? . OBJECTIVE: APPEARANCE Well appearing, alert, in no acute distress, well- hydrated, well nourished. and Morbidly obese NECK Supple, no adenopathy; thyroid symmetric, normal size, no bruits HEART RRR with normal S1 and S2, no murmurs, no gallops, no JVD appreciated LUNG clear to auscultation ABDOMEN soft, non-tender, non-distended, without organomegaly or palpable masses, no tenderness to palpation BACK: No tenderness while palpating the LS spine midline. Forward flexion to the knees does not cause pain. Hyperextension does cause pain in the back but not radiating to the right foot. Right straight leg raise does cause pain in the right posterior buttock and lower back. Left straight leg raise negative EXTREMITIES no lower leg edema. Fair range of motion of both hips. Lab Results for OLMAN REDDY ( ) as of 03/26/2018 10:18 Ref. 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 diabetes mellitus II-- improved control vit D deficiency ASHD?stable Hypertension?at goal PLAN: healthy weight losing diet and regular exercise eat less sugar, bread, potato, pasta, rice, corn, corn syrup, saturated fats eat more salads--try spices reduce metformin 500mg before breakfast and before supper DO NOT TAKE METFORMIN ON THE DAY BEFORE MRI SCAN AND THE DAY OF THE MRI SCAN; RESUME METFORMIN 500MG BEFORE BREAKFAST AND BEFORE SUPPER THE DAY AFTER THE MRI SCAN same other medications return to office 6 mos with labs and as needed follow up with Dr Gayle and Dr Ashton as appointed had flu shot at [place] ROQUE Del Angel MD, III MD 03/26/2018 10:28 AM Signed PLAN: healthy weight losing diet and regular exercise eat less sugar, bread, potato, pasta, rice, corn, corn syrup, saturated fats eat more salads--try spices reduce metformin 500mg before breakfast and before supper DO NOT TAKE METFORMIN ON THE DAY BEFORE MRI SCAN AND THE DAY OF THE MRI SCAN; RESUME METFORMIN 500MG BEFORE BREAKFAST AND BEFORE SUPPER THE DAY AFTER THE MRI SCAN same other medications return to office 6 mos with labs and as needed follow up with Dr Gayle and Dr Ashton as appointed Nathanael Jones III MD Referring Provider: SELF [200] Allergies As of Date: 03/26/2018 Noted Allergy Reaction ACTOS (PIOGLITAZONE HCL) 2006 Comments: abdomenal pain Date Reviewed: 03/26/2018 Reviewed by: Carlita Jennings LPN - Fully Assessed Reason for Visit: Recheck [92] Cmt: 8 month follow up obesity Reason For Visit History Recorded Primary Visit Diagnosis:Lumbar disc disease with radiculopathy [M51.16] Other Visit Diagnoses:Essential hypertension, benign [I10] Vitamin D deficiency [E55.9] Morbid obesity (HCC) [E66.01] Hyperlipidemia with target LDL less than 100 [E78.5] Elevated liver function tests [R94.5] Controlled type 2 diabetes mellitus with stage 3 chronic kidney disease, without long- term current use of insulin (HCC) [E11.22, N18.3] Order(s):HGB A1C [MWWGL2X] Order #: [id number] FUTURE LIPID PANEL BASIC [SQLIPB] Order #: [id number] FUTURE COMP METABOLIC PANEL [SQCMP] Order #: [id number] FUTURE VITAMIN D 25 HYDROXY [SQVITD] Order #: [id number] FUTURE Prescriptions as of 03/26/2018 Sig: PANTOPRAZOLE 40 MG TABLET,DEL* TAKE ONE TABLET BY MOUTH ONCE* LEVOTHYROXINE 50 MCG TABLET Take 1 tablet by mouth once d* PRAVASTATIN 20 MG TABLET Take 1 tablet by mouth once d* NAPROXEN 500 MG TABLET Take 1 tablet by mouth twice * LOSARTAN 50 MG TABLET Take 1 tablet by mouth once d* INSULIN HUMAN U-100 NPH-REGUL* 52 units SQ ac breakfast and * Patient taking differently: 50 units SQ ac breakfast and * FUROSEMIDE 40 MG TABLET Take 40 mg by mouth once neeraj* FINASTERIDE 5 MG TABLET Take 5 mg by mouth once daily. CLOPIDOGREL 75 MG TABLET Take 75 mg by mouth once neeraj* ASPIRIN 81 MG TABLET,DELAYED * Take 81 mg by mouth once neeraj* METFORMIN 500 MG TABLET Take 2 tablets by mouth twice* CHOLECALCIFEROL (VITAMIN D3) * Take 1 tablet by mouth once d* TAMSULOSIN 0.4 MG CAPSULE Take 1 capsule by mouth daily* Patient not taking: Reported on 03/26/2018 Problem List As Of Date 03/26/2018 Noted Resolved ESOPHAGEAL REFLUX [K21.9] Asthma [J45.909] CALCULUS OF KIDNEY [N20.0] Diverticulitis of colon (without mention of hem* 12/22/2014 CHRONIC LIVER DIS NOS [K76.9] INVALID FOR* Abdominal pain, generalized [R10.84] INVALID FOR*12/22/2014 Acute gastritis without mention of hemorrhage [*INVALID FOR*12/22/2014 Unilateral or unspecified femoral hernia withou*INVALID FOR*12/22/2014 Incisional hernia without mention of obstructio*INVALID FOR*12/22/2014 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] INVALID FOR*11/03/2016 Unspecified vitamin D deficiency [E55.9] INVALID FOR*11/03/2016 BPH W URINARY OBS/LUTS [N40.1] INVALID FOR* 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] INVALID FOR* 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] INVALID FOR* GERD (gastroesophageal reflux disease) [K21.9] INVALID FOR* Diaphragmatic hernia without mention of obstruc*INVALID FOR* Hypothyroidism [E03.9] INVALID FOR* Hyperlipidemia with target LDL less than 100 [E*INVALID FOR* Sprain of lumbar region [S33.5XXA] INVALID FOR*10/27/2011 Morbid obesity [E66.01] INVALID FOR* Vitamin D deficiency [E55.9] INVALID FOR* Lumbar disc disease with radiculopathy [M51.16] INVALID FOR* Essential hypertension, benign [I10] INVALID FOR* BPH (benign prostatic hypertrophy) with urinary*INVALID FOR* Family history of colon cancer in mother [Z80.0]INVALID FOR* Special screening for malignant neoplasms, colo*INVALID FOR*01/29/2015 Iron deficiency anemia secondary to inadequate *INVALID FOR* Iron deficiency anemia due to chronic blood los*INVALID FOR*04/15/2016 Gastroesophageal reflux disease [K21.9] INVALID FOR*04/15/2016 Acute appendicitis with localized peritonitis [*INVALID FOR*03/26/2018 Elevated liver function tests [R94.5] INVALID FOR* Controlled type 2 diabetes mellitus with stage *INVALID FOR* Other instructions from your clinician: PLAN: healthy weight losing diet and regular exercise eat less sugar, bread, potato, pasta, rice, corn, corn syrup, saturated fats eat more salads--try spices reduce metformin 500mg before breakfast and before supper DO NOT TAKE METFORMIN ON THE DAY BEFORE MRI SCAN AND THE DAY OF THE MRI SCAN; RESUME METFORMIN 500MG BEFORE BREAKFAST AND BEFORE SUPPER THE DAY AFTER THE MRI SCAN same other medications return to office 6 mos with labs and as needed follow up with Dr Gayle and Dr Ashton as appointed Nathanael Jones III MD Encounter Status:Closed by NATHANAEL JONES III, MD on 03/26/18 PT D/C SUMMARY (1) Observed: 03/14/2018 Status: F Source: [facility] 2:22 PM [facility] REPOSITORY [facility] Physical [facility] [address] [place], [place] [address] Fax REHABILITATION SERVICES DISCHARGE SUMMARY MR#: [id number] Acct: [id number] Name: OLMAN REDDY Rep #: [id number] : 1935 82 From: Emily HARRELLT Referring Dr.: Jewel Carmona MD Status: REG RCR Insurance: [facility] SEL[employer] PAY INSURANCE HP - PT D/C Summary It has been my pleasure to treat OLMAN REDDY under orders from Jewel Carmona, for the diagnosis of back and hip pain for a total of 9 visit(s). Discharge Date: Please see the following information for a summary of their discharge status. - Subjective Subjective: Right hip pain is still pretty bad- helps when in the water but not after he gets back out. Worst: [address] Agg: always hurts Eases: take pain medication. Plans to make an apt with Dr. Gayle. He is planning to have a total hip replacement on the right. The pain limits his ability to perform most of his ADL's. - Pain R hip pain Pain Intensity (Out of 10): 6 L hip pain Pain Intensity (Out of 10): 0 Lumbar Spine Pain Intensity (Out of 10): 6 - Objective Objective/Function: Posture: FH, RS, Increased kyphosis- Gait: Walks with WBOS and short stride slow selvin. Able to heel and toe raise with UE support. LE MMT: hip flex B 4/5, Knee ext B 4/5, Knee flex B 4/5, Pt is able to do a full ROM bridge. Sit to stand: able to stand without UE support Stairs: Able to go up stairs with 1 rail recip (weakness present on the r) and descends stairs with 1 rail leading with the R and 2 feet to a stair. Flex: HS: severe restriction. - Goals Goal 1:: I HEP Goal Progress: Progressing Goal 2:: Be able to go up and down stairs recip with 1 rail Goal Progress: Not Progressing Goal 3:: Decrease B hip pain to 1/10 with ADL's Goal Progress: Not Progressing - Plan Plan: Discharge- return to MD for further evaluation - D/C Information If there are questions or concerns regarding this patient's physical therapy, please feel free to call me at [phone]. Thank you for the referral of this patient. Sincerely, Emily Jang <Electronically signed by Emily Jang DPT> 03/14/18 1422 CC: Jewel Carmona MD; Nathanael Jones III, MD ELR Signed ECHOCARDIOGRAM COMPLETE Observed: 03/13/2018 Status: F Source: [facility] 3:06 PM [facility] REPOSITORY [facility] Cardiovascular Services [address] [place] [id number] Echo Complete 03/13/18 1255 MR#: [id number] Acct: [id number] Name: OLMAN REDDY Rep #: [id number] : 1935 82 From: Junior Jurado MD Attending Dr: Lela Sherman WANT AD RECEIVER Status: REG I Ordering Dr: Lela Sherman WANT AD RECEIVER-C Date: 03/13/18 Location: [facility] Sex: M C Admitted: Reason For Study: Dyspnea/SOB Procedure This was a 2D Doppler, Color Flow transthoracic echocardiogram. The study was technically difficult. Exam performed in department. Left Ventricle Normal LV size. Left ventricular systolic function is normal. The estimated ejection fraction is 55 %. Diastolic function is indeterminate. No regional wall motion abnormalities noted. Right Ventricle Normal RV size. Normal systolic function. Atria The left atrium is mildly enlarged. Normal right atrium. No doppler evidence for ASD. Mitral Valve There is no mitral annular calcification. Normal mitral valve. Trivial mitral valve insufficiency. Tricuspid Valve Normal tricuspid valve. Trivial tricuspid valve insufficiency. Unable to estimate RV systolic pressure/pulmonary artery pressure due to technically difficult study. Aortic Valve Trisinus/trileaflet aortic valve. Mild focal aortic valve calcification. Pulmonic Valve The pulmonic valve is not well visualized. Great Vessels Normal sized aortic root. Pericardium/Pleural No pericardial effusion. MMode/2D Measurements AND Calculations LVIDd: 4.9 cm IVSd: 1.2 cm LVOT diam: 2.0 cm LVIDs: 3.4 cm LVPWd: 0.92 cm LVOT area: 3.2 cm2 RVDd: 3.5 cm FS: 31.3 % Ao root diam: 3.1 cm LAV(MOD-bp): 56.3 ml LA A4 area: 20.9 cm2 LA dimension: 4.1 cm LAV(MOD-bp) Indexed: 26.5 ml/m2 LAV(MOD-sp2): 42.8 ml LAV(MOD-sp4): 60.5 ml RA A4 area: 14.5 cm2 Time Measurements MV dec time: 0.16 sec Doppler Measurements AND Calculations MV E max mitzy: 58.3 cm/sec Lat Peak E' Imtzy: 6.7 cm/sec Med Peak E' Mitzy: 5.3 cm/sec MV A max mitzy: 78.0 cm/sec E/E' lat: 8.7 E/E' med: 11.0 MV E/A: 0.75 MV V2 max: 74.4 cm/sec MV P1/2t max mitzy: 59.9 cm/sec Ao V2 max: 105.9 cm/sec MV max P.2 mmHg MV P1/2t: 64.2 msec Ao max P.5 mmHg MV V2 mean: 37.7 cm/sec MV dec slope: 273.4 cm/sec2 Ao V2 mean: 70.4 cm/sec MV mean P.68 mmHg MVA(P1/2t): 3.4 cm2 Ao mean P.3 mmHg MV V2 VTI: 20.1 cm Ao V2 VTI: 21.3 cm MVA(VTI): 2.6 cm2 CANDY(I,D): 2.4 cm2 CANDY(V,D): 2.6 cm2 LV V1 max: 86.0 cm/sec SV(LVOT): 51.2 ml PA V2 max: 60.9 cm/sec LV V1 max P.0 mmHg LV V1 mean P.3 mmHg LV V1 mean: 52.6 cm/sec LV V1 VTI: 16.1 cm Interpretation Summary The study was technically difficult. Left ventricular systolic function is normal. The estimated ejection fraction is 55 %. The left atrium is mildly enlarged. Trivial mitral valve insufficiency. Trivial tricuspid valve insufficiency. Mild focal aortic valve calcification. Unable to estimate RV systolic pressure/pulmonary artery pressure due to technically difficult study. Diastolic function is indeterminate. Ordering Physician: Lela Sherman Referring Physician: Lela Sherman Performed By: William Kelly RCS 03/13/18 1505 Date Junior Jurado MD CC: Lela Sherman; Nathanael Jones III, MD Date Dictated: 03/13/18 1255 Date Transcribed: 03/13/18 1505 Sludge Filtration Operator: Signed PULMONARY VISIT REPORT Observed: 03/05/2018 Status: F Source: [facility] 10:21 AM [facility] REPOSITORY [facility] [address] [place] [address] OFFICE VISIT Date of Service: 03/05/18 MR#: [id number] Acct: [id number] Name: OLMAN REDDY Rep #: [id number] : 1935 Provider: Lela Sherman Age/Sex: 82/M Location: [facility] Status: Signed Assessment AND Plan 1. Shortness of breath R06.02 Plan Deteriorated. The patient admits any shortness of breath has worsened over the past 2 weeks. Going to evaluate him for possible congestive heart failure here exacerbation with a BNP, as well as evaluate kidney function with a BMP. If kidneys tolerate and the BNP is elevated I will temporarily adjust his Lasix and refer him back to cardiology for long-term management. I am also going to request an echocardiogram given that it has been 2 years since his last echocardiogram was completed. Last echocardiogram did show some pulmonary hypertension, I would like to evaluate for potential worsening. It is also possible that he is suffering from some exertional hypoxia, which would be evaluated with a simple pulmonary stress test. If indicated, supple oxygen will be ordered. Also encourage the patient to avoid sodium intake, and we also provided him with education on pulmonary hypertension and low-sodium diet. The patient conveys understanding and is agreeable. Follow-up with Dr. Nazario in 3 months. Patient is also been encouraged to contact the office with any new or worsening symptoms in the need Orders Orders: 2. Obstructive sleep apnea of adult G47.33 Plan Patient is using and benefiting from Pap therapy. No indication for titration study at this time. Continue to encourage weight loss. Contact the office for any new or worsening symptoms in the meantime. Follow-up in 3 months. 3. BMI 40.0-44.9, adult Z68.41 Plan Continue to encourage weight loss. Plan Detail Other Orders Orders: Follow Up 3 Months (DMB) HPI 3 M FU: Chief Complaint: shortness of breath HPI Comments Details: This patient presents to the office today to follow- up on his obstructive sleep apnea. He is worried, currently on room air and accompanied today by his . He has not been seen in the ED or urgent care for respiratory illnesses since his last office visit. He has not required any antibiotics or prednisone for any breathing problems. He continues to experience shortness of breath on exertion, and reports that over the past 2 weeks he has even noticed shortness of breath during rest. He denies any chest pain or palpitations. He denies any cough, sputum production or hemoptysis. He has not experienced any fever, chills or body aches. He does report lower extremity edema. He is compliant with Lasix 40 mg daily, but admits that he is not compliant with a low-sodium diet. Complaints report for the past 30 days has been reviewed and shows that the patient is 100% compliance with the use of his BiPAP. Current settings are 16/12 cm of water. AHI is controlled at an average of 3.9 events per hour. Leaks appear to be occasional issue. He is using and benefiting from his BiPAP. He does report approximately 3 episodes of nocturia nightly. He is taking a 1 hour nap daily, he does wear his BiPAP for his nap. He states that he cannot sleep without his BiPAP. He denies falling asleep easily, he denies dry mouth in the morning and is not experiencing frequent headaches. His weight is up 11 pounds in the past 7 weeks. He did follow up with Pap education as previously recommended. He admits that he did not feel as though he learned any new tricks to help with the mask leaks. Has been 3 months since he last changed his cushion and is requesting a prescription for a new cushion today. 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: No Accompanied by: Is patient in pain?: No Allergies pioglitazone HCl [From Actos] Adverse Reaction (Verified 03/05/18 07:38) Upset Stomach Medications Levothyroxine [Synthroid] 50 mcg PO DAILY 01/05/14 [History Confirmed 03/05/18] Metformin HCl [Glucophage] 1,000 mg PO BIDCM 01/05/14 [History Confirmed 03/05/18] Pravastatin [Pravachol] 20 mg PO DAILY 01/05/14 [History Confirmed 03/05/18] Cholecalciferol (Vitamin D3) [Vitamin D3] 5,000 unit PO DAILY 06/29/15 [History Confirmed 03/05/18] Finasteride [Proscar] 5 mg PO DAILY 06/29/15 [History Confirmed 03/05/18] Insulin NPH/Reg 70/30 [Novolin 70/30] 36 units SC DINNER 06/29/15 [History Confirmed 03/05/18] Insulin NPH/Reg 70/30 [Novolin 70/30] 50 units SC BREAKFAST 06/29/15 [History Confirmed 03/05/18] Pantoprazole Sodium [Protonix] 40 mg PO DAILY 06/29/15 [History Confirmed 03/05/18] Aspirin [Adult Low Dose Aspirin EC] 81 mg PO DAILY 07/24/15 [History Confirmed 03/05/18] clopidogrel 75 mg tablet 75 mg PO DAILY #90 tab 08/15/17 [Rx Confirmed 03/05/18] furosemide 40 mg tablet 40 mg PO DAILY #90 tab 09/06/17 [Rx Confirmed 03/05/18] losartan 50 mg tablet 50 mg PO QDAY #90 tab 09/06/17 [Rx Confirmed 03/05/18] Hydrocodone/Acetaminophen [Marion 5-325 Tablet] 1 - 2 ea PO 4X/DAY PRN PRN 3 Days #12 tab 01/08/18 [Rx Confirmed 03/05/18] [facility] History Diabetes mellitus (Chronic) BMI 40.0-44.9, adult (Chronic) Dyspnea (Chronic) Cough (Chronic) Shortness of breath (Chronic) Obesity (Chronic) Upper respiratory infection (Resolved) Right flank pain (Resolved) Atherosclerotic heart disease of [place] coronary artery without angina pectoris (Chronic) 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 (Chronic) 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) Palpitations (Chronic) Nonrheumatic tricuspid (valve) insufficiency (Chronic) Obstructive sleep apnea of adult (Chronic) Hypothyroid (Chronic) Diabetes mellitus type 2 in obese (Chronic) Hypertension (Chronic) Nephrolithiasis (Chronic) GERD (gastroesophageal reflux disease) (Chronic) Benign prostatic hypertrophy (Chronic) Appendicitis (Acute) Coronary artery disease (Chronic) Chest pain (Acute) HLD (hyperlipidemia) (Chronic) Anemia (Resolved) Surgical History Status post angioplasty with stent (Chronic) S/P PTCA (percutaneous transluminal coronary angioplasty) (Chronic) History of appendectomy (Resolved) History of back surgery (Resolved) Family History Mother CAD (coronary artery disease) Brother CAD (coronary artery disease) Myocardial infarction Daughter Asthma Father Cancer brain cancer Sister Breast cancer Sister Cardiomyopathy Social History Smoking Status: Former smoker pack-years: 2 second hand exposure: No alcohol intake: never substance use type: does not use caffeine: Yes Type: coffee what type of physical activity do you participate in: none seatbelt use: always do you feel safe at home: Yes RVSP RVSP: 30 mmHg Review of Systems Const CONSTITUTIONAL: Positive fatigue; negative anorexia, body ache, chills, daytime sleepiness, fever(s), night sweats, oral thrush, stops breathing during sleep, weight loss, sleeping in chair, weight loss, weight gain, frequent colds, seasonal allergies, other, headache(s) or orthopnea EETM Ear Nose Throat Mouth: Positive hearing normal and post nasal drip; negative hard of hearing, hoarseness, dry mouth in morning, change in vision, itchy eyes, eye pain, swallowing Difficulty, ear pain, nose bleed, headache(s), mouth pain, nasal congestion, nasal discharge, sinus pain, sinus pressure, sore throat or other Cardio Cardiovascular: Negative chest pain, chest pain at rest, chest pain with activity, irregular heart rhythm, edema, shortness of breath when lying down, palpitations, murmur or other Resp Respiratory: Positive as per HPI and shortness of breath shortness of breath: Positive worsening; negative pain with cough, wheezing, chest congestion, cough, chest tightness, pain on inspiration, inhalers, increase use of rescue inhalers, snoring, apnea or other Gastro Gastrointestional: Negative bloody stools, change in appetite, difficulty swallowing, reflux, hematemesis, melena stool, loose stool, constipation or other Genitourinary: Positive nocturia; negative blood in urine, pain with urination or other Musc Musculoskeletal: Negative body pain, back pain, neck pain or other Skin/Breast Skin/Breast: Negative dry skin, itching, rash, unusual bruising, breast lump or other Neuro Neurological: Negative restless legs, confusion, weakness or other Psych Psychocological: Negative abnormal sleep pattern, anxiety, thoughts of hurting self/others, hopelessness or other Lymph Lymphatic: Negative easy bleeding, easy bruising, swollen lymph nodes or other Exam Const Constitutional: Positive conversant, cooperative, healthy appearing, well developed, well nourished, good hygiene, obese and dyspenic Head Head: Positive normocephalic and atraumatic; negative cyanosis of lips/distal nose Eyes Eye: Positive clear conjunctiva; negative nystagmus or scleral abnormality Ears Ear: Positive hearing normal and external ears normal; negative hard of hearing Nose Nose: Positive external nose normal and no nasal discharge; negative epistaxis Mouth Mouth: Positive post nasal drip, oral mucosae normal, no lesions and crowded posterior oropharynx; negative malodorous breath or oral thrush present Mallampati Score: III: Mallampati Score Neck Neck: Positive normal visual inspection, full ROM and trachea midline; negative lymphadenopathy, JVD or tender Chest Wall Chest: Positive normal inspection of the chest and symmetric chest movement; negative increased A/P diameter Resp lung sounds: Positive diminished diminished: Positive bialteral and lower, dullness to percussion dullness: Yes bilateral, Yes lower, normal expiratory time and normal respiratory effort; negative wheezes, rhonchi, rales or wheeze present on forced exhalation Cardio Cardiac: Positive S1 normal and S2 normal; negative murmur, regular rate or regular rhythm GI GI: Positive normal to inspection and obese; negative distended Genitourinary: Positive deferred Musc Musculoskeletal: Positive steady gait and ROM normal; negative kyphosis or scoliosis Skin Pulmonary Skin Exam: Positive intact; negative rash, lesion, ulcers, erythema or scaly Pulses Pulse: Yes pulses normal x4 extremities Extremities Extremities: Yes capillary refill normal, No clubbing, No cyanosis, Yes edema Location: lower extremity location: Bilateral pitting +1 Neuro Neurologic: Yes conversant, Yes no focal neuro deficits, Yes normal concentration, Yes understands questions, Yes cooperative, Yes normal cognition, Yes normal coordination Lymph Lymphatic: No lymphadenopathy, No tenderness, No cervical adenopathy Psych Appearance: Positive grossly normal, eye contact and well kempt Mental Status: Positive mental status grossly normal Mood: Positive congruent mood Affect: Positive normal affect Coding Level of Care Code Off vis,est,level 4 Diagnoses Shortness of breath R06.02 Obstructive sleep apnea of adult G47.33 BMI 40.0-44.9, adult Z68.41 03/05/18 1021 <Electronically signed by Lela CANNONC> Date Lela CANNONC Cosigner Signature: Date (if applicable) CC: Nathanael Jones III, MD BASIC METABOLIC Collected: 03/05/2018 Status: F Source: [facility] ([facility]) 9:29 AM [facility] [place] REPOSITORY TYPE CODE TESTS RESULT OUT OF RANGE REFERENCE UNITS LAB L501.0100 74-106 mg/dL High GLU 135 Result Comment: Fasting Glucose result greater than or equal to 126 mg/dL suggests DIABETES MELLITUS per A.D.A. criteria. Please note revised GLUCOSE reference range effective 2017. LAB L501.1000 7-18 mg/dL High BUN 19 LAB L501.1100 0.70-1.30 mg/dL High CREAT,SERUM 1.37 Result Comment: The validity of the calculated GFR AND GFRAA in patients over 70 years has not been determined. Clinical correlation is essential. LAB L501.1110 >60 mL/min Low EST GFR 53 Result Comment: Non- GFR Calc LAB L501.1115 >60 mL/min Normal EST GFR - AA 64 Result Comment: GFR Calc LAB L501.1300 10-20 RATIO Normal BUN/CRE 13.9 LAB L501.2200 8.5-10.1 mg/dL CA Normal 9.4 LAB L501.5300 136-145 mmol/L NA Normal 139 LAB L501.5600 3.5-5.1 mmol/L K Normal 4.1 LAB L501.5900 98-107 mmol/L CL Normal 104 LAB L501.6100 21.0-32.0 mmol/L Normal CO2 25.0 LAB L501.6200 5-15 Normal GAP 10 Performed By: #### L500.2500 #### [facility] [address] [place], [address] BNP,B-TYPE NATRIURETIC Collected: 03/05/2018 Status: F Source: [place] 9:29 AM [facility] REPOSITORY TYPE CODE TESTS RESULT OUT OF RANGE REFERENCE UNITS LAB L503.6620 0-100 pg/mL Normal B-TYPE 52.4 LUIZA PEP Performed By: #### L503.6620 #### [facility] [address], [address] HEMOGLOBIN A1C Collected: 03/01/2018 Status: F Source: [place] 9:26 AM [facility] REPOSITORY TYPE CODE TESTS RESULT OUT OF RANGE REFERENCE UNITS LAB L501.9985 4.2-6.3 % Normal HGB A1C 6.3 Performed By: #### L501.9985 #### [facility] [address], [address] BASIC METABOLIC Collected: 03/01/2018 Status: F Source: [place] [facility] ([facility]) 9:26 AM [facility] REPOSITORY TYPE CODE TESTS RESULT OUT OF RANGE REFERENCE UNITS LAB L501.0100 74-106 mg/dL High GLU 194 Result Comment: Fasting Glucose result greater than or equal to 126 mg/dL suggests DIABETES MELLITUS per A.D.A. criteria. Please note revised GLUCOSE reference range effective 2017. LAB L501.1000 7-18 mg/dL High BUN 26 LAB L501.1100 0.70-1.30 mg/dL High CREAT,SERUM 1.53 Result Comment: The validity of the calculated GFR AND GFRAA in patients over 70 years has not been determined. Clinical correlation is essential. LAB L501.1110 >60 mL/min Low EST GFR 47 Result Comment: Non- GFR Calc LAB L501.1115 >60 mL/min Low EST GFR - AA 57 Result Comment: GFR Calc LAB L501.1300 10-20 RATIO Normal BUN/CRE 17.0 LAB L501.2200 8.5-10.1 mg/dL CA Normal 9.7 LAB L501.5300 136-145 mmol/L NA Normal 139 LAB L501.5600 3.5-5.1 mmol/L K Normal 4.6 LAB L501.5900 98-107 mmol/L CL Normal 103 LAB L501.6100 21.0-32.0 mmol/L Normal CO2 28.0 LAB L501.6200 5-15 Normal GAP 8 Performed By: #### L500.2500, L501.4100, L501.4405 #### [facility] [address] [place], [address] AST(SGOT) Collected: 03/01/2018 Status: F Source: [place] 9:26 AM [facility] REPOSITORY TYPE CODE TESTS RESULT OUT OF RANGE REFERENCE UNITS LAB L501.4100 15-37 U/L Normal AST 22 Performed By: #### L500.2500, L501.4100, L501.4405 #### [facility] [address] [place], [address] ALANINE AMINOTRANSFERAS Collected: 03/01/2018 Status: F Source: [place] ([facility]) 9:26 AM [facility] REPOSITORY TYPE CODE TESTS RESULT OUT OF RANGE REFERENCE UNITS LAB L501.4405 16-61 U/L Normal ALT 39 Performed By: #### L500.2500, L501.4100, L501.4405 #### [facility] [address] [place], [address] INITAL EVALUATION (1) Observed: 02/13/2018 Status: F Source: [place] - PT 5:23 PM [facility] REPOSITORY [facility] Physical Therapy [facility] [address] [place], [place] [address] Fax REHABILITATION SERVICES INITIAL EVALUATION MR#: [id number] Acct: [id number] Name: OLMAN REDDY Rep #: [id number] : 1935 82 From: Maureen Retana MPT Referring Dr.: Jewel Carmona MD Status: REG RCR Insurance: [facility] SELF PAY INSURANCE Patient's Visit Information OLMAN REDDY is a 82 year old M referred to Physical Therapy by Jewel Carmona with a diagnosis of back and hip pain. Date of Evaluation: 02/13/18 Physical Therapist: Maureen Retana - Visit Plan Frequency: 2x /Week Duration: 4 Weeks Plan: 2X/ week for 4 weeks - Subjective Subjective: Pt reports that he has R and L hip problems and will need replaced. He did get a shot in the L hip back in August and R hip 3 weeks ago and the pain has gotten better. Dr hoping that AT will help. Pt got to the place that he could not lift his L leg and now only the R leg bothers him. Stairs: he uses a railing and has to be careful and is able to alternate. Any extra walking bothers him. He can not get out of a chair to get out of a chair. He has a messed up shoulder as well and needs a shoulder replacement. He is able to sleep on his L side. He is also seeing Dr Gayle. - Pain R hip pain Pain Intensity (Out of 10): 5 L hip pain Pain Intensity (Out of 10): 2 - Objective Gait: Walks with WBOS and short stride. Able to heel and toe raise holding onto the hallway railing. LE MMT: hip flex B 4-/5, Knee ext B 4/5, Knee flex B 4/5, Pt is able to do a full ROM bridge. Sit to stand: able to stand without UE support and suprised himself that he could do it. Stairs: Able to go up stairs with 1 rail recip (weakness present on the r) and descends stairs with 1 rail leading with the R and 2 feet to a stair. Hip flexion AROM to 90 degrees. - Goals Goal 1:: I HEP Goal Time Frame: 4-6 Weeks Goal 2:: Be able to go up and down stairs recip with 1 rail Goal Time Frame: 4-6 Weeks Goal 3:: Decrease B hip pain to 1/10 with ADL's Goal Time Frame: 4-6 Weeks - Rehabilitation Potential Rehabilitation Potential: Good - Anticipated Interventions Patient/Client Instruction: Educate patient on: Plan of Care For the Purpose of:: To decrease pain, To increase ROM, To improve nutrient delivery to tissue, To improve muscle performance and motor function, To improve ability to perform ADL's, To increase tolerance to activity/condition/position, To improve performance and independence with ADL's, To improve gait and locomotor functions, To increase flexibility/ROM Therapeutic Exercise to Include: Strength training, Balance training, Postural training, Flexibilty training, Gait and locomotor training, Active ROM, Dynamic Lumbar Stabilization For the Purpose of:: To decrease pain, To increase ROM, To improve muscle performance and motor function, To improve ability to perform ADL's, To increase tolerance to activity/condition/position, To improve ability of physical actions for home/community/work/leisure, To improve gait and locomotor functions, To improve health of tissue, To increase flexibility/ROM, To improve balance Functional Training to Include: Gait training Comments: stairs For the Purpose of:: To improve gait and locomotor functions, To improve safety with gait Thank you for the opportunity to evaluate your patient. For Medicare and Medicare HMO plans, please review the plan of care and approve it. It will need to be FAXED BACK to us at [phone] for Medicare purposes. Please let me know if there are questions or concerns regarding this plan of care. Physician Signature: Date: <Electronically signed by Maureen Retana MPT> 02/13/18 1723 CC: Jewel Carmona MD; Nathanael Jones III, MD Signed For Medicare only, by signing this I certify the plan of care. Physicians Signature Date EMERGENCY DEPARTMENT Observed: 01/15/2018 Status: F Source: [place] SUMMARY 7:40 AM [facility] REPOSITORY [facility] Medical Records Department [address] [place] [address] Emergency Department Summary 01/08/18 1900 MR#: [id number] Acct: [id number] Name: OLMAN REDDY Rep #: [id number] : 1935 82 From: Pat Courtney DO PCP: Nathanael Jones III, MD Status: DEP ER - ER Visit Summary Date of Service: 01/08/18 Chief Complaint: [Injury right shoulder] History of Present Illness: The patient is a 82 M [presents the emergency department complaint of injury to the right shoulder that occurred earlier today when he was taking out the trash. Patient states that he lifted a trash bag into a container and immediately felt something give. Patient having a hard time lifting his arm up above his head now. Patient is right-hand dominant.] Physical Examination: [HEENT-PERRLA, EOMI. Cranial nerves II through XII grossly intact. TMs clear. Mucous membranes moist. No adenopathy. Cardiovascular-regular rate and rhythm without murmur or ectopy Lungs-clear to auscultation, chest wall stable without crepitus or subcu emphysema Abdomen-normoactive bowel sounds, soft, nontender, no rebound or rigidity, no peritoneal signs. Extremities-intact 4, normal range of motion, normal pulses, atraumatic]. Right shoulder-no deformity noted. Patient has some mild diffuse tenderness over the anterior glenohumeral joint. Patient has pain with abduction and has discomfort attempting to resist adduction. Patient has pain with trying to resist internal rotation. He is neurovascular intact. Test Results: [X-rays of the right shoulder] show degenerative changes but no acute fractures or dislocations. Emergency Department Course and Treatment: Patient was given one Marion in the emergency department and given a sling [] Treatment Plan: [Patient to follow-up with Dr. Gayle who he has seen in the past for orthopedics. Patient understands he may need further imaging such as possibly MRI to evaluate further] Disposition: [Discharged home in stable condition] Impression: [Right shoulder sprain-possible internal derangement] This note was generated with [employer] dictation software. It may contain incorrect words, spelling, and punctuation that were not noted in review of the chart prior to signing ED Disposition - Plan for ED Patient: Chief Complaint: Upper Extremity Injury Referrals: Nathanael Jones III, MD [Primary Care Provider] - What to do if you have Problems For any increased pain, shortness of breath, bleeding, nausea or vomiting, chest pain, or any unexpected problems, contact your Primary Care Provider. Call [facility] ([phone]) or report to the closest Emergency Room. Call 911 if necessary. 01/15/18 0740 <Electronically signed by Pat Courtney DO> Date Pat Courtney DO Cosigner Signature (If Indicated): Date CC: Nathanael Jones III, MD DISCHARGE INSTRUCTION Observed: 01/08/2018 Status: F Source: [place] 7:35 PM [facility] REPOSITORY [facility] Medical Records Department [address] [place] [address] Discharge Instruction 01/08/181932 MR#: [id number] Acct: [id number] Name: OLMAN REDDY Rep #: [id number] : 1935 82 From: Pat Courtney DO PCP: Nathanael Jones III, MD Status: REG ER ED Disposition - Plan for ED Patient: Chief Complaint: Upper Extremity Injury Instructions: ED Sprain Shoulder Prescriptions: Hydrocodone/Acetaminophen [Marion 5-325 Tablet] 1 - 2 ea PO 4X/DAY PRN PRN 3 Days #12 tab PRN Reason: Pain Referrals: Nathanael Jones III, MD [Primary Care Provider] - Capo Gayle MD [STAFF PHYSICIAN] - 3-5 Days What to do if you have Problems For any increased pain, shortness of breath, bleeding, nausea or vomiting, chest pain, or any unexpected problems, contact your Primary Care Provider. Call [facility] ([phone]) or report to the closest Emergency Room. Call 911 if necessary. 01/08/181934 <Electronically signed by Pat Courtney DO> Date Pat Courtney DO Cosigner Signature (If Indicated): Date CC: Nathanael Jones III, MD SHOULDER MIN 2 VIEWS Observed: 01/08/2018 Status: F Source: [facility] 6:57 PM [facility] REPOSITORY [facility] Imaging Services [address] [place] [id number] Shoulder min 2 Views MR#: [id number] Acct: [id number] Name: OLMAN REDDY Rep #: [id number] : 1935 M 82 From: Omer Coronel DO PCP: Nathanael Jones III, MD Status: REG ER Study: Shoulder min 2 Views Date of Exam: 01/08/18 Exam# [id number] Ordering Dr: Pat Courtney DO STUDY: X-RAY - RIGHT SHOULDER REASON FOR EXAM: Male, 82 years old. Right shoulder pain TECHNIQUE: 4 view(s) of the shoulder. COMPARISON: None. FINDINGS: There is mild degenerative arthrosis of the glenohumeral articulation. There is degenerative arthrosis of the acromioclavicular joint without inferior osseous spur formation. Normal acromion. Normal humeral head and visualized proximal humerus. The soft tissue structures are unremarkable. Normal visualized pulmonary apex. RAD/Shoulder min 2 Views IMPRESSION: Degenerative changes without acute findings Electronically Signed: Omer Coronel DO at 19:21 EDT Tel , Service support , CC: Nathanael Jones III, MD; Pat Courtney DO Sludge Filtration Operator: Signed HEMOGLOBIN A1C Collected: 11/14/2017 Status: F Source: [place] 9:49 AM [facility] REPOSITORY TYPE CODE TESTS RESULT OUT OF RANGE REFERENCE UNITS LAB L501.9985 4.2-6.3 % High HGB A1C 7.1 Performed By: #### L501.9985 #### [facility] [address] [place], [address] BASIC METABOLIC Collected: 11/14/2017 Status: F Source: [facility] PROFILE ([facility]) 9:49 AM [facility] REPOSITORY TYPE CODE TESTS RESULT OUT OF RANGE REFERENCE UNITS LAB L501.0100 74-106 mg/dL Normal GLU 106 Result Comment: Fasting Glucose result from 100 to 125 mg/dL suggests IMPAIRED HOMEOSTASIS per A.D.A. criteria. Please note revised GLUCOSE reference range effective 2017. LAB L501.1000 7-18 mg/dL High BUN 22 LAB L501.1100 0.70-1.30 mg/dL High CREAT,SERUM 1.37 Result Comment: The validity of the calculated GFR AND GFRAA in patients over 70 years has not been determined. Clinical correlation is essential. LAB L501.1110 >60 mL/min Low EST GFR 53 Result Comment: Non- GFR Calc LAB L501.1115 >60 mL/min Normal EST GFR - AA 64 Result Comment: GFR Calc LAB L501.1300 10-20 RATIO Normal BUN/CRE 16.1 LAB L501.2200 8.5-10.1 mg/dL CA Normal 9.2 LAB L501.5300 136-145 mmol/L NA Normal 141 LAB L501.5600 3.5-5.1 mmol/L K Normal 4.1 LAB L501.5900 98-107 mmol/L CL Normal 104 LAB L501.6100 21.0-32.0 mmol/L Normal CO2 25.0 LAB L501.6200 5-15 Normal GAP 12 Performed By: #### L500.2500, L500.4100, L501.4100, L501.4405 #### [facility] [address] [place], [place], [id number] LIPID PROFILE Collected: 11/14/2017 Status: F Source: [place] 9:49 AM [facility] REPOSITORY TYPE CODE TESTS RESULT OUT OF RANGE REFERENCE UNITS LAB L501.4900 200 mg/dL Normal CHOL 164 Result Comment: <200 mg/dL Desirable 200-240 mg/dL Borderline >240 mg/dL High Risk LAB L501.5000 mg/dL High TRIG 260 Result Comment: The drugs N-Acetylcysteine and Metamizole may falsely depress this assay. Serum Triglycerides Reference Interval Normal <150 mg/dL Borderline high 150 - 199 mg/dL High 200 - 499 mg/dL Very High > or = 500 mg/dL LAB L501.6400 mg/dL Low HDL 35 Result Comment: The drugs N-Acetylcysteine and Metamizole may falsely depress this assay. Reference Range HDL <40 mg/dL Low HDL Cholesterol HDL >or= 60 mg/dL High HDL Cholesterol LAB L501.6500 0-130 mg/dL Normal LDL 77 LAB L501.6600 5-40 mg/dL High VLDL 52 Performed By: #### L500.2500, L500.4100, L501.4100, L501.4405 #### [facility] [address] [place], [address] AST(SGOT) Collected: 11/14/2017 Status: F Source: [place] 9:49 AM [facility] REPOSITORY TYPE CODE TESTS RESULT OUT OF RANGE REFERENCE UNITS LAB L501.4100 15-37 U/L High AST 38 Performed By: #### L500.2500, L500.4100, L501.4100, L501.4405 #### [facility] [address], [address] ALANINE AMINOTRANSFERAS Collected: 11/14/2017 Status: F Source: [place] (SGPT) 9:49 AM [facility] REPOSITORY TYPE CODE TESTS RESULT OUT OF RANGE REFERENCE UNITS LAB L501.4405 16-61 U/L Normal ALT 45 Performed By: #### L500.2500, L500.4100, L501.4100, L501.4405 #### [facility] [address], [address] XR CHEST 2V FRONTAL/LAT Observed: 09/25/2017 Status: F Source: [place] 11:22 AM [facility] REPOSITORY * * *Final Report* * * DATE OF EXAM: Sep 25 2017 11:22AM W[facility] [id number] - XR CHEST 2V FRONTAL/LAT / PROCEDURE REASON: Cough * * * * Physician Interpretation * * * * EXAMINATION: CHEST RADIOGRAPH (2 VIEW FRONTAL and LATERAL) Clinical History: Cough MQ: XC2_5 Comparison: 11/24/2015 RESULT: Lines, tubes, and devices: None. Lungs and pleura: There are postsurgical changes within the upper left hemithorax with areas of parenchymal scarring and pleural thickening. These findings are stable. Both lungs are otherwise expanded and clear. No evidence of consolidation, pleural effusion or pneumothorax. Pulmonary vascularity is normal. 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 Sternal wires are intact. Stable cardiomediastinal silhouette. The thoracic aorta is tortuous and contains atherosclerotic calcification. Other: Stable healed rib fractures within the right hemithorax. There is a retrocardiac density with an air-fluid level consistent with a hiatal hernia. There is multilevel degenerative disc disease present within the thoracic spine. IMPRESSION: NO ACUTE RADIOGRAPHIC ABNORMALITY. STABLE APPEARANCE OF THE CHEST Sludge Filtration Operator: PSCB Transcribe Date/Time: Sep 26 2017 7:54A Dictated by : CAROLE PRICE MD This examination was interpreted and the report reviewed and electronically signed by: CAROLE PRICE MD on Sep 26 2017 7:58AM EST [id number] PROGRESS Observed: 09/25/2017 Status: COMPLETED Source: [place] 11:12 AM [facility] REPOSITORY HNO ID: [id number] Author: Carmen () Juanito Beltre Service: (none) Author Type: [employer] Type: Progress Notes Filed: 09/25/2017 11:23 AM Note Text: Radiology Service Progress Note PATIENT NAME: Olman Reddy DATE OF SERVICE: September 25, 2017 TIME: 11:16 AM PATIENT IDENTITY VERIFICATION COMPLETED USING TWO (2) METHODS: Patient confirmed name verbally and Date of . PATIENT GENDER DATA: Male PATIENT RELEVANT IMPLANT DATA REVIEWED: Not Applicable RADIOLOGY DEPARTMENT: General X-ray: Exam(s) Completed: Chest X-Ray PERIPHERAL IV DATA: Not applicable SIGNED BY: RT Gregory September 25, 2017 11:16 AM PROGRESS Observed: 09/25/2017 Status: COMPLETED Source: [place] 10:43 AM [facility] REPOSITORY HNO ID: [id number] Author: Alex Ellison Service: (none) Author Type: Physician Type: Progress Notes Filed: 09/25/2017 11:52 AM Note Text: Patient presents with: Chest Congestion: cough x 1 week HPI: Feeling sick for 1 week, initial URI has moved to his chest Positive symptoms: cough, Shortness of breath, Chest heaviness, Sorethroat, Nasal Congestion, Rhinorrhea, Fever, Chills, Body Aches, sinus pressure Negative symptoms: OTC: Mucinex, salt water, cough syrup Hx of asthma but never responded to albuterol. He has also had chest surgery to remove benign lymph nodes in the past. 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 07/07/2014 - Calculus of kidney - Diaphragmatic hernia without mention of obstruction or gangrene - Diverticulitis of colon (without mention of hemorrhage)(562.11) - Esophageal reflux - Essential hypertension, benign 01/28/2014 - Family history of colon cancer in mother 12/22/2014 - Family history of malignant neoplasm of gastrointestinal tract - GERD (gastroesophageal reflux disease) 04/19/2010 - History of left heart catheterization 06/30/2015 [facility] - see scanned documents - Hyperlipidemia LDL goal < 100 04/26/2011 - Hypothyroidism 08/21/2010 - Lumbago - Lumbar disc disease with radiculopathy 10/09/2013 - Morbid obesity (HCC) 04/23/2012 - Nonspecific (abnormal) findings on radiological and other examination of lung field - Osteoarthritis of hip 02/16/2010 - Other diseases of lung, not elsewhere classified PULMONARY NODULE - Snoring - Type II or unspecified type diabetes mellitus without mention of complication, not stated as uncontrolled - Unspecified asthma(493.90) - Unspecified constipation - Unspecified hemorrhoids without mention of complication - Vitamin D deficiency 07/05/2013 PAST SURGICAL HISTORY Procedure Laterality Date - COLONOSCOP W/ OR W/O [facility] SPEC 07/30/03 Colonoscopy - COLONOSCOP W/ OR W/O [facility] SPEC 10/28/08 - COLONOSCOP W/ OR W/O [facility] SPEC 01/29/15 Colonoscopy - ECHO 06/24/2015 [facility] - see scanned documents - EGD W/O OR W/BRUSH/WASH 09/27/2006 EGD - EGD W/O OR W/BRUSH/WASH 04/27/2010 EGD - EGD W/O OR W/BRUSH/WASH 04/15/16 EGD - LAPAROSCOPY, SURGICAL, APPENDECTOMY 05/02/16 - POLYSOMNOGRAM 06/2001 - PULMONARY FUNCTION TEST 10/19/02 - REPAIR INCIS HERNIA W MESH 03/26/07 - REPAIR INCISIONAL HERNIA,REDUCIBLE 03/26/07 - STENT PLACEMENT maker MEDICATIONS: Current Outpatient Prescriptions: levothyroxine (SYNTHROID) 50 mcg tablet Take 1 tablet by mouth once daily. pravastatin (PRAVACHOL) 20 mg tablet Take 1 tablet by mouth once daily. naproxen (NAPROSYN) 500 mg tablet Take 1 tablet by mouth twice daily as needed for Pain. Take with food. losartan (COZAAR) 50 mg tablet Take 1 tablet by mouth once daily. tamsulosin ER (FLOMAX) 0.4 mg cp24 Take 1 capsule by mouth daily at bedtime. pantoprazole DR (PROTONIX) 40 mg tablet Take 1 tablet by mouth once daily. insulin 70/30 NPH/regular units/mL (HUMULIN 70/30, NOVOLIN 70/30) 52 units SQ ac breakfast and 38 units SQ ac supper furosemide (LASIX) 40 mg tablet Take 40 mg by mouth once daily. finasteride (PROSCAR) 5 mg tablet Take 5 mg by mouth once daily. clopidogrel (PLAVIX) 75 mg tablet Take 75 mg by mouth once daily. aspirin, enteric coated (ASPIRIN, ENTERIC COATED) 81 mg EC tablet Take 81 mg by mouth once daily. metFORMIN (GLUCOPHAGE) 500 mg tablet Take 2 tablets by mouth twice daily with meals. Cholecalciferol, Vitamin D3, (VITAMIN D-3) 2,000 unit cap Take 1 tablet by mouth once daily. No current facility-administered medications for this visit. ALLERGIES: ALLERGIES Allergen Reactions - Actos [Pioglitazone* abdomenal pain VITALS: BP 110/70 Pulse 72 Temp 36.4 ?C (97.6 ?F) (Tympanic) Resp 19 SpO2 93% Vitals PULSE OX 04/24/2014 96 06/02/2014 97 01/29/2015 96 10/02/2015 96 04/15/2016 96 09/25/2017 93 PHYSICAL EXAM: GEN: mildly ill appearing. HEENT: PERRL, EOMI, conjunctiva clear Ears: canals clear, TMs without erythema, bulge, or effusion Sinuses: tender sinuses Throat: moist mucous membranes, mild erythema, no exudate Neck: supple, no thyromegaly, no lymphadenopathy HEART: regular rate and rhythm, no murmurs LUNGS: clear to auscultation, no wheezes or crackles, no increased WOB ASSESSMENT/PLAN: 1. Cough - ICD9: 786.2, ICD10: R05 (primary diagnosis) 2. Acute non-recurrent sinusitis, unspecified location - ICD9: 461.9, ICD10: J01.90 - Will begin treatment with - DOXYCYCLINE MONOHYDRATE 100 MG CAPSULE - XR CHEST 2V FRONTAL/LAT - no acute changes. Follow up in the ER with worsening chest heaviness or shortness of breath. Alex Ellison MD CNOV Observed: 09/25/2017 Status: COMPLETED Source: [place] 10:15 AM [facility] REPOSITORY Office Visit (WSTR) OLMAN REDDY ([id number]) 1935 M Date Time Provider Department 09/25/17 10:15 AM [facility] During your visit today, we recorded the following information about you: Temperature Pulse Respiration Blood pressure 97.6 degrees 72/minute 19/minute 110/70 Alex Ellison MD 09/25/2017 11:52 AM Signed Patient presents with: Chest Congestion: cough x 1 week HPI: Feeling sick for 1 week, initial URI has moved to his chest Positive symptoms: cough, Shortness of breath, Chest heaviness, Sorethroat, Nasal Congestion, Rhinorrhea, Fever, Chills, Body Aches, sinus pressure Negative symptoms: OTC: Mucinex, salt water, cough syrup Hx of ANDquot;asthmaANDquot; but never responded to albuterol. He has also had chest surgery to remove benign lymph nodes in the past. 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 07/07/2014 - Calculus of kidney - Diaphragmatic hernia without mention of obstruction or gangrene - Diverticulitis of colon (without mention of hemorrhage)(562.11) - Esophageal reflux - Essential hypertension, benign 01/28/2014 - Family history of colon cancer in mother 12/22/2014 - Family history of malignant neoplasm of gastrointestinal tract - GERD (gastroesophageal reflux disease) 04/19/2010 - History of left heart catheterization 06/30/2015 [facility] - see scanned documents - Hyperlipidemia LDL goal ANDlt; 100 04/26/2011 - Hypothyroidism 08/21/2010 - Lumbago - Lumbar disc disease with radiculopathy 10/09/2013 - Morbid obesity (HCC) 04/23/2012 - Nonspecific (abnormal) findings on radiological and other examination of lung field - Osteoarthritis of hip 02/16/2010 - Other diseases of lung, not elsewhere classified PULMONARY NODULE - Snoring - Type II or unspecified type diabetes mellitus without mention of complication, not stated as uncontrolled - Unspecified asthma(493.90) - Unspecified constipation - Unspecified hemorrhoids without mention of complication - Vitamin D deficiency 07/05/2013 PAST SURGICAL HISTORY Procedure Laterality Date - COLONOSCOP W/ OR W/O [facility] SPEC 07/30/03 Colonoscopy - COLONOSCOP W/ OR W/O [facility] SPEC 10/28/08 - COLONOSCOP W/ OR W/O [facility] SPEC 01/29/15 Colonoscopy - ECHO 06/24/2015 [facility] - see scanned documents - EGD W/O OR W/BRUSH/WASH 09/27/2006 EGD - EGD W/O OR W/BRUSH/WASH 04/27/2010 EGD - EGD W/O OR W/BRUSH/WASH 04/15/16 EGD - LAPAROSCOPY, SURGICAL, APPENDECTOMY 05/02/16 - POLYSOMNOGRAM 06/2001 - PULMONARY FUNCTION TEST 10/19/02 - REPAIR INCIS HERNIA W MESH 03/26/07 - REPAIR INCISIONAL HERNIA,REDUCIBLE 03/26/07 - STENT PLACEMENT maker MEDICATIONS: Current Outpatient Prescriptions: levothyroxine (SYNTHROID) 50 mcg tablet Take 1 tablet by mouth once daily. pravastatin (PRAVACHOL) 20 mg tablet Take 1 tablet by mouth once daily. naproxen (NAPROSYN) 500 mg tablet Take 1 tablet by mouth twice daily as needed for Pain. Take with food. losartan (COZAAR) 50 mg tablet Take 1 tablet by mouth once daily. tamsulosin ER (FLOMAX) 0.4 mg cp24 Take 1 capsule by mouth daily at bedtime. pantoprazole DR (PROTONIX) 40 mg tablet Take 1 tablet by mouth once daily. insulin 70/30 NPH/regular units/mL (HUMULIN 70/30, NOVOLIN 70/30) 52 units SQ ac breakfast and 38 units SQ ac supper furosemide (LASIX) 40 mg tablet Take 40 mg by mouth once daily. finasteride (PROSCAR) 5 mg tablet Take 5 mg by mouth once daily. clopidogrel (PLAVIX) 75 mg tablet Take 75 mg by mouth once daily. aspirin, enteric coated (ASPIRIN, ENTERIC COATED) 81 mg EC tablet Take 81 mg by mouth once daily. metFORMIN (GLUCOPHAGE) 500 mg tablet Take 2 tablets by mouth twice daily with meals. Cholecalciferol, Vitamin D3, (VITAMIN D-3) 2,000 unit cap Take 1 tablet by mouth once daily. No current facility-administered medications for this visit. ALLERGIES: ALLERGIES Allergen Reactions - Actos [Pioglitazone* abdomenal pain VITALS: BP 110/70 Pulse 72 Temp 36.4 ?C (97.6 ?F) (Tympanic) Resp 19 SpO2 93% Vitals PULSE OX 04/24/2014 96 06/02/2014 97 01/29/2015 96 10/02/2015 96 04/15/2016 96 09/25/2017 93 PHYSICAL EXAM: GEN: mildly ill appearing. HEENT: PERRL, EOMI, conjunctiva clear Ears: canals clear, TMs without erythema, bulge, or effusion Sinuses: tender sinuses Throat: moist mucous membranes, mild erythema, no exudate Neck: supple, no thyromegaly, no lymphadenopathy HEART: regular rate and rhythm, no murmurs LUNGS: clear to auscultation, no wheezes or crackles, no increased WOB ASSESSMENT/PLAN: 1. Cough - ICD9: 786.2, ICD10: R05 (primary diagnosis) 2. Acute non-recurrent sinusitis, unspecified location - ICD9: 461.9, ICD10: J01.90 - Will begin treatment with - DOXYCYCLINE MONOHYDRATE 100 MG CAPSULE - XR CHEST 2V FRONTAL/LAT - no acute changes. Follow up in the ER with worsening chest heaviness or shortness of breath. Alex Ellison MD Referring Provider: SELF [200] Allergies As of Date: 09/25/2017 Noted Allergy Reaction ACTOS (PIOGLITAZONE HCL) 2006 Comments: abdomenal pain Date Reviewed: 09/25/2017 Reviewed by: Collette Carrera Ma - Fully Assessed Reason for Visit: Chest Congestion [236] Cmt: cough x 1 week Primary Visit Diagnosis:Cough [R05] Other Visit Diagnosis:Acute non-recurrent sinusitis, unspecified location [J01.90] Order(s):XR CHEST 2V FRONTAL/LAT [[id number]] Order #: [id number] FUTURE doxycycline monohydrate (MONODOX) 100 mg capsuleTake 1 capsule by mouth twice daily for 7 days.Disp: 14 capsuleRfl: 0 Prescriptions as of 09/25/2017 Sig: LEVOTHYROXINE 50 MCG TABLET Take 1 tablet by mouth once d* PRAVASTATIN 20 MG TABLET Take 1 tablet by mouth once d* NAPROXEN 500 MG TABLET Take 1 tablet by mouth twice * LOSARTAN 50 MG TABLET Take 1 tablet by mouth once d* TAMSULOSIN 0.4 MG CAPSULE Take 1 capsule by mouth daily* PANTOPRAZOLE 40 MG TABLET,DEL* Take 1 tablet by mouth once d* INSULIN HUMAN U-100 NPH-REGUL* 52 units SQ ac breakfast and * FUROSEMIDE 40 MG TABLET Take 40 mg by mouth once neeraj* FINASTERIDE 5 MG TABLET Take 5 mg by mouth once daily. CLOPIDOGREL 75 MG TABLET Take 75 mg by mouth once neeraj* ASPIRIN 81 MG TABLET,DELAYED * Take 81 mg by mouth once neeraj* METFORMIN 500 MG TABLET Take 2 tablets by mouth twice* CHOLECALCIFEROL (VITAMIN D3) * Take 1 tablet by mouth once d* DOXYCYCLINE MONOHYDRATE 100 M* Take 1 capsule by mouth twice* Problem List As Of Date 09/25/2017 Noted Resolved ESOPHAGEAL REFLUX [K21.9] Asthma [J45.909] CALCULUS OF KIDNEY [N20.0] Diverticulitis of colon (without mention of hem* 12/22/2014 CHRONIC LIVER DIS NOS [K76.9] INVALID FOR* Abdominal pain, generalized [R10.84] INVALID FOR*12/22/2014 Acute gastritis without mention of hemorrhage [*INVALID FOR*12/22/2014 Unilateral or unspecified femoral hernia withou*INVALID FOR*12/22/2014 Incisional hernia without mention of obstructio*INVALID FOR*12/22/2014 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] INVALID FOR*11/03/2016 Unspecified vitamin D deficiency [E55.9] INVALID FOR*11/03/2016 BPH W URINARY OBS/LUTS [N40.1] INVALID FOR* 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] INVALID FOR* 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] INVALID FOR* GERD (gastroesophageal reflux disease) [K21.9] INVALID FOR* Diaphragmatic hernia without mention of obstruc*INVALID FOR* Hypothyroidism [E03.9] INVALID FOR* Hyperlipidemia with target LDL less than 100 [E*INVALID FOR* Sprain of lumbar region [S33.5XXA] INVALID FOR*10/27/2011 Morbid obesity [E66.01] INVALID FOR* Vitamin D deficiency [E55.9] INVALID FOR* Lumbar disc disease with radiculopathy [M51.16] INVALID FOR* Essential hypertension, benign [I10] INVALID FOR* BPH (benign prostatic hypertrophy) with urinary*INVALID FOR* Type 2 diabetes mellitus without complication (*INVALID FOR* Family history of colon cancer in mother [Z80.0]INVALID FOR* Special screening for malignant neoplasms, colo*INVALID FOR*01/29/2015 Iron deficiency anemia secondary to inadequate *INVALID FOR* Iron deficiency anemia due to chronic blood los*INVALID FOR*04/15/2016 Gastroesophageal reflux disease [K21.9] INVALID FOR*04/15/2016 Acute appendicitis with localized peritonitis [*INVALID FOR* Prescriptions ordered this encounter Disp Refills Start End DOXYCYCLINE MONOHYDRATE 100 MG CAPSU* 14 c* 0 09/25/2017 10/02/2017 Route: ORAL Sig: Take 1 capsule by mouth twice daily for 7 days. Encounter Status:Closed by ALEX ELLISON MD on 09/25/17 COMPREHENSIVE METABOLIC Collected: 09/07/2017 Status: F Source: [place] 9:01 AM [facility] REPOSITORY TYPE CODE TESTS RESULT OUT OF RANGE REFERENCE UNITS LAB L501.0100 74-106 mg/dL Normal GLU 99 Result Comment: Please note revised GLUCOSE reference range effective 2017. LAB L501.1000 7-18 mg/dL Normal BUN 18 LAB L501.1100 0.70-1.30 mg/dL Normal CREAT,SERUM 1.26 Result Comment: The validity of the calculated GFR AND GFRAA in patients over 70 years has not been determined. Clinical correlation is essential. LAB L501.1110 >60 mL/min Low EST GFR 59 Result Comment: Non- GFR Calc LAB L501.1115 >60 mL/min Normal EST GFR - AA 71 Result Comment: GFR Calc LAB L501.1300 10-20 RATIO Normal BUN/CRE 14.3 LAB L501.1500 6.4-8.2 g/dL T Normal PROT 7.0 LAB L501.1800 3.2-5.0 g/dL Normal ALB 3.8 LAB L501.1950 2.2-4.2 g/dL Normal GLOB 3.2 LAB L501.2000 0.9-2.4 RATIO Normal A/G 1.2 LAB L501.2200 8.5-10.1 mg/dL CA Normal 9.4 LAB L501.4100 15-37 U/L Normal AST 37 LAB L501.4305 45-117 U/L Low ALK P 40 LAB L501.4405 16-61 U/L Normal ALT 54 Result Comment: Please note revised ALT reference range effective 2017. LAB L501.4600 0.20-1.00 mg/dL Normal T BILI 1.00 LAB L501.5300 136-145 mmol/L Normal NA 139 LAB L501.5600 3.5-5.1 mmol/L Normal K 4.0 LAB L501.5900 98-107 mmol/L Normal CL 103 LAB L501.6100 21.0-32.0 mmol/L Normal CO2 29.0 LAB L501.6200 5-15 Normal GAP 7 Performed By: #### L500.4050, L500.4100, L501.4700 #### [facility] [address], [address] LIPID PROFILE Collected: 09/07/2017 Status: F Source: [place] 9:01 AM [facility] REPOSITORY TYPE CODE TESTS RESULT OUT OF RANGE REFERENCE UNITS LAB L501.4900 200 mg/dL Normal CHOL 155 Result Comment: <200 mg/dL Desirable 200-240 mg/dL Borderline >240 mg/dL High Risk LAB L501.5000 mg/dL Normal TRIG 171 Result Comment: The drugs N-Acetylcysteine and Metamizole may falsely depress this assay. Serum Triglycerides Reference Interval Normal <150 mg/dL Borderline high 150 - 199 mg/dL High 200 - 499 mg/dL Very High > or = 500 mg/dL LAB L501.6400 mg/dL Low HDL 38 Result Comment: The drugs N-Acetylcysteine and Metamizole may falsely depress this assay. Reference Range HDL <40 mg/dL Low HDL Cholesterol HDL >or= 60 mg/dL High HDL Cholesterol LAB L501.6500 0-130 mg/dL Normal LDL 83 LAB L501.6600 5-40 mg/dL Normal VLDL 34 Performed By: #### L500.4050, L500.4100, L501.4700 #### [facility] [address] [place], [place], [address] BILIRUBIN, DIRECT Collected: 09/07/2017 Status: F Source: [place] 9:01 AM [facility] REPOSITORY TYPE CODE TESTS RESULT OUT OF RANGE REFERENCE UNITS LAB L501.4700 0.00-0.30 mg/dL Normal D BILI 0.21 Performed By: #### L500.4050, L500.4100, L501.4700 #### [facility] [address] [place], [address] CARDIOLOGY VISIT Observed: 09/06/2017 Status: F Source: [place] REPORT 2:44 [facility] REPOSITORY [facility] [address] [place] [address] OFFICE VISIT Date of Service: 09/06/17 MR#: [id number] Acct: [id number] Name: OLMAN REDDY Rep #: [id number] : 1935 Provider: Audelia Espinoza Age/Sex: 82/M Location: [facility] Status: Signed HPI HPI Details: OLMAN REDDY, is a 82 M who presents to the office today for a cardiovascular follow-up. He has a history of coronary artery disease with stenting to his LAD in June 2015. He also has a history of hypertension and hyperlipidemia. Pts biggest issue is with his hip. He does see Dr. Gayle for this. He does not have any chest pain/heaviness/tightness. He does have SOB with exertion but does not feel that this is worse than previous. He does not have orthopnea. He does use his CPAP. He does not have any lightheadedness/dizziness. He does not have any near syncope/syncope. He does not have any palpitations. He does not have any edema. 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 Accompanied by: Is patient in pain?: No Allergies pioglitazone HCl [From [employer]] Adverse Reaction (Verified 09/06/17 13:00) Upset Stomach Medications Levothyroxine [Synthroid] 50 mcg PO DAILY 01/05/14 [History Confirmed 09/06/17] Metformin HCl [Glucophage] 1,000 mg PO BIDCM 01/05/14 [History Confirmed 09/06/17] Pravastatin [Pravachol] 20 mg PO DAILY 01/05/14 [History Confirmed 09/06/17] Cholecalciferol (Vitamin D3) [Vitamin D3] 5,000 unit PO DAILY 06/29/15 [History Confirmed 09/06/17] Finasteride [Proscar] 5 mg PO DAILY 06/29/15 [History Confirmed 09/06/17] Insulin NPH/Reg 70/30 [Novolin 70/30] 36 units SC DINNER 06/29/15 [History Confirmed 09/06/17] Insulin NPH/Reg 70/30 [Novolin 70/30] 50 units SC BREAKFAST 06/29/15 [History Confirmed 09/06/17] Pantoprazole Sodium [Protonix] 40 mg PO DAILY 06/29/15 [History Confirmed 09/06/17] Aspirin [Adult Low Dose Aspirin EC] 81 mg PO DAILY 07/24/15 [History Confirmed 09/06/17] clopidogrel 75 mg tablet 75 mg PO DAILY #90 tab 08/15/17 [Rx Confirmed 09/06/17] furosemide 40 mg tablet 40 mg PO DAILY #90 tab 09/06/17 [Rx Confirmed 09/06/17] losartan 50 mg tablet 50 mg PO QDAY #90 tab 09/06/17 [Rx Confirmed 09/06/17] meloxicam 15 mg tablet PO 30 Days #30 09/06/17 [History Confirmed 09/06/17] Ejection fraction %: 55 to 59 PFSH Medical History Atherosclerotic heart disease of [place] coronary artery without angina pectoris (Chronic) 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 (Chronic) Palpitations (Chronic) Nonrheumatic tricuspid (valve) insufficiency (Chronic) Obstructive sleep apnea of adult (Chronic) Hypothyroid (Chronic) Diabetes mellitus type 2 in obese (Chronic) Hypertension (Chronic) Nephrolithiasis (Chronic) GERD (gastroesophageal reflux disease) (Chronic) Benign prostatic hypertrophy (Chronic) Coronary artery disease (Chronic) HLD (hyperlipidemia) (Chronic) Anemia (Resolved) Surgical History Status post angioplasty with stent (Chronic) S/P PTCA (percutaneous transluminal coronary angioplasty) (Chronic) History of appendectomy (Resolved) History of back surgery (Resolved) Family History Mother CAD (coronary artery disease) Brother CAD (coronary artery disease) Myocardial infarction Daughter Asthma Father Cancer brain cancer Sister Breast cancer Sister Cardiomyopathy Social History Smoking Status: Former smoker alcohol intake: never substance use type: does not use caffeine: Yes Type: coffee what type of physical activity do you participate in: none seatbelt use: always do you feel safe at home: Yes ROS Const Const: Negative for weakness, fatigue, fever(s) or headache(s) Eyes Eyes: Negative for blind spots, loss of peripheral vision or transient loss of vision ENT ENT: Negative for headache(s), dizziness, tinnitus or Nosebleed/epistaxis Cardio Chest Pain: No Palpitations: No Edema: None Muscle aches with walking: None Resp Respiratory: Negative for SOB with activity, SOB at rest, SOB orthopnea\SOB lying down or Cough GI GI: Negative nausea, vomiting, heartburn or vomiting blood/hematemesis : Negative for hematuria Musc Musc: Positive for muscle aches/ myalgia and joint pain Neuro Neuro: Negative for weakness, headache(s), dizziness, near syncope, syncope, lightheadedness or orthostatic symptoms J Luis Hematologic/Lymphatic: Negative for easy bleeding Endo Endo: Negative for fatigue Cardiology Exam Const Appearance: cooperative, no acute distress and well developed Nutritional Appearance: obese Orientation: alert, awake and oriented x3 Limitations: physical limitations (ambulates with cane) Head Head: normocephalic and atraumatic Mouth: moist mucous membranes Eyes General: appearance normal, both eyes and all related structures Conjunctivae: conjunctivae normal Pupils: PERRL EOM: EOM intact bilaterally Neck Neck: normal visual inspection, no lymphadenopathy and no JVD Carotids: Negative bruit Neck Mass: Negative Neck mass Chest Chest inspection: normal inspection of the chest and symmetric chest movement Auscultation: Bilateral: Clear to Auscultation Cardio Palpation: normal PMI Rate: regular rate Rhythm: regular rhythm Heart sounds: S1 normal and S2 normal; negative rub, gallop or murmur GI GI: normal to inspection, soft, no hepatosplenomegaly, bowel sounds present and obese; negative tender Neuro General: alert, awake, oriented x3, CN's II-XI intact bilaterally and moves all extremities Extremities Pulses: Normal: Right Posterior Tibial Pulse, Left Posterior Tibial Pulse, Right Radial Pulse, Left Radial Pulse Lower Extremity Edema: None: Bilateral Psych Psychological: normal affect Supplemental Info Echocardiogram done in 2016 demonstrated an ejection fraction of 55%. Mildly the dilated RV. Left atrium is mildly enlarged. Trivial mitral and tricuspid insufficiency. Mild pulmonic insufficiency. Heart catheterization done in February 2016 demonstrated angiographically normal left main, LAD previously placed stent patent. Circumflex codominant large no significant stenosis. Dominant RCA no significant stenosis. Assessment AND Plan 1. Coronary artery disease involving [place] coronary artery of [place] heart without angina pectoris I25.10 Plan - NEERJA Bomwan Stable, from a cardiac standpoint patient does not have any symptoms of angina. We recommend that they continue with current aggressive medical management and risk factor modification. Orders Orders: 2. 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 I42.0 Plan - NEERAJ Bowman This is since resolved. We will continue to monitor with periodic echocardiograms. 3. Hypertension I10 Plan - NEERAJ Bowman Blood pressure is well controlled on current medications, we do not recommend any changes at this time. Orders Orders: 4. Pure hypercholesterolemia E78.00; E78.0 Plan - NEERAJ Bowman Patient is due to have his lipids checked. He has not had them done in quite some time. These have been previously managed by primary care doctor. Will adjust medications accordingly. Plan Detail Other Orders Orders: Other Medications New: Additional Comments - NEERAJ Bowman The above patient was discussed with Dr. Ashton, he agrees with plan of care. Thank you for allowing us to participate in patient's plan of care, if you have any questions please do not hesitate to call. This note was generated using a voice recognition system and there may be incorrect words, spelling or punctuation errors that were not noted when reviewing the office note prior to saving. 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 transplanted heart: [place] heart Associated angina: without angina 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 I42.0 Hypertension I10 Hypertension type: essential hypertension Pure hypercholesterolemia E78.00; E78.0 Hyperlipidemia type: pure hypercholesterolemia Coding Level of Care Code Off vis,est,level 3 Diagnoses Coronary artery disease involving [place] coronary artery of [place] heart without angina pectoris I25.10 Coronary Disease-Associated Artery/Lesion type: [place] artery [place] vs. transplanted heart: [place] heart Associated angina: without angina 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 I42.0 Hypertension I10 Hypertension type: essential hypertension Pure hypercholesterolemia E78.00; E78.0 Hyperlipidemia type: pure hypercholesterolemia 09/06/17 1344 <Electronically signed by Audelia PICKARD> Date Audelia PICKARD 09/06/17 1444<Electronically signed by David Ashton MD> Cosigner Signature: Date (if applicable) David Ashton MD CC: Nathanael Jones III, MD INJ/ASP [place] JT Observed: 08/23/2017 Status: F Source: [place] SHOULD/HIP/KNEE 8:17 AM [facility] REPOSITORY [facility] Imaging Services [address] [place] [address] Inj/Asp [place] Jt Should/Hip/Knee MR#: [id number] Acct: [id number] Name: OLMAN REDDY Rep #: [id number] : 1935 M 82 From: Jon Waters MD PCP: Nathanael Jones III, MD Status: REG CLI Study: Inj/Asp [place] Jt Should/Hip/Knee Date of Exam: 08/23/17 Exam# [id number] Ordering Dr: Capo Gayle MD PROCEDURE: Fluoroscopic guided Hip Injection DATE: August 23, 2017. INDICATION: Male, 82 years old. Left hip pain. PHYSICIAN: Jon Waters M.D. MEDICATIONS: 6 mg of betamethasone and 3 cc of 1% lidocaine. 2% Lidocaine administered subcutaneously for local anesthesia. ACCESS SITE: Left hip. NEEDLE: 22-gauge spinal needle. FLUOROSCOPY TIME (if supplied): (0:45) minutes/seconds FINDINGS: The risks, benefits, and alternatives to the procedure were explained to the patient. The specific risks of bleeding, infection, and neurovascular injury were detailed and accepted. Witnessed informed consent was obtained. A 22-gauge spinal needle was positioned under radiographic fluoroscopic localization. Approximately 2 cc of Gastroview 300 instilled for localization purposes. Medication was then injected. The patient tolerated the procedure well without any immediate complications. The patient was placed supine with head elevated and returned to the floor in stable condition. RAD/Inj/Asp [place] Jt Should/Hip/Knee IMPRESSION: 1. Successful fluoroscopic guided hip injection. Electronically Signed: Jon Waters MD at 10:20 EST Tel [phone], Service support , CC: Nathanael Jones III, MD; Capo Gayle MD Sludge Filtration Operator: Signed PROGRESS Observed: 07/31/2017 Status: COMPLETED Source: [place] 6:45 PM [facility] REPOSITORY HNO ID: [id number] Author: Nathanael Jones III Service: (none) Author Type: Physician Type: Progress Notes Filed: 07/31/2017 6:45 PM Note Text: X-ray right shoulder does show chronic arthritic and degenerative changes compared with x-ray obtained in 2012. There is a superior bone spur and calcification of the superior joint capsule. X-ray left hip was interpreted as fairly unremarkable. I recommend physical therapy to help with both the right shoulder and the left hip. Nathanael Jones III MD PROGRESS Observed: 07/31/2017 Status: COMPLETED Source: [place] 6:44 PM [facility] REPOSITORY HNO ID: [id number] Author: Nathanael Jones III Service: (none) Author Type: Physician Type: Progress Notes Filed: 07/31/2017 6:44 PM Note Text: X-ray right shoulder does show chronic arthritic and degenerative changes compared with x-ray obtained in 2012. There is a superior bone spur and calcification of the superior joint capsule. X-ray left hip was interpreted as fairly unremarkable. I recommend physical therapy to help with both the right shoulder and the left hip. Nathanael Jones III MD XR HIP 3V PELV+ Observed: 07/31/2017 Status: F Source: [place] AP/LAT LT 4:03 PM [facility] [place] REPOSITORY * * *Final Report* * * DATE OF EXAM: Jul 31 2017 4:03PM WOX [id number] - XR HIP 3V PELV+ AP/LAT LT / PROCEDURE REASON: Unilateral primary osteoarthritis, unspecified hip * * * * Physician Interpretation * * * * HISTORY: Hip pain COMPARISON: Comparison is made to prior hip study dated 02/16/2010 RESULT: Supine radiograph of the pelvis as well as AP and frogleg views of the left hip demonstrate the bony pelvic ring intact. The hips are bilaterally symmetric without fracture or dislocation. Joint spaces reasonably preserved. No acute bony process is noted. The soft tissues are unremarkable with stable phleboliths within the left aspect of the pelvis.. IMPRESSION: NEGATIVE HIP. Sludge Filtration Operator: [facility] Transcribe Date/Time: Jul 31 2017 4:23P Dictated by : ДМИТРИЙ VIDAL MD This examination was interpreted and the report reviewed and electronically signed by: ДМИТРИЙ VIDAL MD on Jul 31 2017 4:26PM EST [id number] XR SHOULDER 2V Observed: 07/31/2017 Status: F Source: [place] AP/TRUE AP RT 4:03 PM [facility] REPOSITORY * * *Final Report* * * DATE OF EXAM: Jul 31 2017 4:03PM WOX [id number] - XR SHOULDER 2V AP/TRUE AP RT / PROCEDURE REASON: Impingement syndrome of right shoulder * * * * Physician Interpretation * * * * HISTORY: Right shoulder pain COMPARISON: Comparison is made to prior shoulder study dated 07/23/2012 RESULT: 3 views of the right shoulder show no acute osseous, articular or soft tissue process. Mild degenerative change with marginal spurring of the AC joint superiorly with superior capsular calcification. There are no significant inferior projecting spurs. Bony reactive changes of the greater tuberosity are noted. Acromiohumeral distance and glenohumeral joint space appear preserved. IMPRESSION: Findings as detailed in report. Sludge Filtration Operator: [facility] Transcribe Date/Time: Jul 31 2017 4:26P Dictated by : ДМИТРИЙ VIDAL MD This examination was interpreted and the report reviewed and electronically signed by: ДМИТРИЙ VIDAL MD on Jul 31 2017 4:28PM EST [id number] PROGRESS Observed: 07/31/2017 Status: COMPLETED Source: [place] 3:45 PM [facility] REPOSITORY HNO ID: [id number] Author: Ej Quinn (Rt) Juanito Reyes Service: (none) Author Type: [employer] Type: Progress Notes Filed: 07/31/2017 3:54 PM Note Text: Radiology Service Progress Note PATIENT NAME: Olman Reddy DATE OF SERVICE: July 31, 2017 TIME: 3:45 PM PATIENT IDENTITY VERIFICATION COMPLETED USING TWO (2) METHODS: Patient confirmed name verbally and Date of . PATIENT GENDER DATA: Male PATIENT RELEVANT IMPLANT DATA REVIEWED: Not Applicable RADIOLOGY DEPARTMENT: General X-ray: Exam(s) Completed: Pelvis X-Ray: Pelvis with Hip Left Upper Extremity X-Ray(s): Shoulder, AP / TRUE AP right : PERIPHERAL IV DATA: Not applicable SIGNED BY: RT Coleen July 31, 2017 3:45 PM PROGRESS Observed: 07/31/2017 Status: COMPLETED Source: [place] 3:08 PM [facility] REPOSITORY O ID: [id number] Author: Nathanael Jones III Service: (none) Author Type: Physician Type: Progress Notes Filed: 07/31/2017 6:45 PM Note Text: SUBJECTIVE: This is a 81 year old male that is here today for 1. generalized aching x 1 wk. No new meds or herbs. Pain ant L hip, knees, hands, shoulders--makes it difficult to get out of car. With further questioning the patient localizes his pain to the right shoulder, the anterior left hip, left knee, and both hands. He has been on the same dose of pravastatin for years without problem. His pain seems to be localized mostly in joints and not muscles. He denies any cough, sore throat, runny nose, fever, chills. He has been using hydrocodone occasionally but has not been using an nonsteroidal anti-inflammatory drug recently. 2. diabetes mellitus with CKD III: home glu 122 this AM. 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 07/07/2014 - Calculus of kidney - Diaphragmatic hernia without mention of obstruction or gangrene - Diverticulitis of colon (without mention of hemorrhage)(562.11) - Esophageal reflux - Essential hypertension, benign 01/28/2014 - Family history of colon cancer in mother 12/22/2014 - Family history of malignant neoplasm of gastrointestinal tract - GERD (gastroesophageal reflux disease) 04/19/2010 - History of left heart catheterization 06/30/2015 [facility] - see scanned documents - Hyperlipidemia LDL goal < 100 04/26/2011 - Hypothyroidism 08/21/2010 - Lumbago - Lumbar disc disease with radiculopathy 10/09/2013 - Morbid obesity (HCC) 04/23/2012 - Nonspecific (abnormal) findings on radiological and other examination of lung field - Osteoarthritis of hip 02/16/2010 - Other diseases of lung, not elsewhere classified PULMONARY NODULE - Snoring - Type II or unspecified type diabetes mellitus without mention of complication, not stated as uncontrolled - Unspecified asthma(493.90) - Unspecified constipation - Unspecified hemorrhoids without mention of complication - Vitamin D deficiency 07/05/2013 Current Outpatient Prescriptions on File Prior to Visit: losartan (COZAAR) 50 mg tablet Take 1 tablet by mouth once daily. tamsulosin ER (FLOMAX) 0.4 mg cp24 Take 1 capsule by mouth daily at bedtime. pantoprazole DR (PROTONIX) 40 mg tablet Take 1 tablet by mouth once daily. insulin 70/30 NPH/regular units/mL (HUMULIN 70/30, NOVOLIN 70/30) 52 units SQ ac breakfast and 38 units SQ ac supper levothyroxine (SYNTHROID) 50 mcg tablet Take 1 tablet by mouth once daily. furosemide (LASIX) 40 mg tablet Take 40 mg by mouth once daily. finasteride (PROSCAR) 5 mg tablet Take 5 mg by mouth once daily. clopidogrel (PLAVIX) 75 mg tablet Take 75 mg by mouth once daily. aspirin, enteric coated (ASPIRIN, ENTERIC COATED) 81 mg EC tablet Take 81 mg by mouth once daily. naproxen sodium (ALEVE) 220 mg tablet Take 220 mg by mouth twice daily with meals. metFORMIN (GLUCOPHAGE) 500 mg tablet Take 2 tablets by mouth twice daily with meals. Cholecalciferol, Vitamin D3, (VITAMIN D-3) 2,000 unit cap Take 1 tablet by mouth once daily. ketorolac (TORADOL) 10 mg tablet Take 1 tablet by mouth every 6 hours as needed. ferrous sulfate 325 mg (65 mg iron) tablet Take 1 tablet by mouth daily with breakfast. HYDROcodone-acetaminophen (NORCO) 5-325 mg per tablet Take 1 tablet by mouth every 6 hours as needed. No current facility-administered medications on file prior to visit. .[facility] FAMILY HISTORY Problem Relation Age of Onset - Cancer Father BRAIN - Heart Mother - Heart Brother - Breast Cancer Sister - Diabetes Sister - Colon Cancer Mother - testicular cancer [Other] [OTHER] Son Social History Substance Use Topics - Smoking status: Former Smoker Packs/day: 1.00 Years: 5.00 Types: Cigarettes Quit date: 10/17/1964 - Smokeless tobacco: Never Used - Alcohol use No BP 112/72 Pulse 64 Temp 37.1 ?C (98.7 ?F) (Tympanic) Resp 14 Wt 108.9 kg (240 lb) BMI 42.51 kg/m2 . OBJECTIVE: APPEARANCE Well appearing, alert, in no acute distress, well-hydrated, well nourished., Morbidly obese. Able to climb up onto the exam table independently NECK full painless head range of motion without causing pain. No muscle spasm or tenderness in the supraclavicular or subclavian regions. BACK: Forward bending to the knees does not cause pain. No tenderness in palpating the LS midline. EXTREMITIES Right shoulder: Full range of motion of the right shoulder though there is pain with full lateral raising to 12:00 position. Mild pain with 5/5 strength right speeds and empty can. Painless 5/5 strength with resisted biceps, triceps, internal rotation, external rotation. No localized bony tenderness, though he does have some tenderness in palpating the lateral right deltoid area. Left hip: Though he has painless right knee flexion to 90?, he has pain with anterior flexion and left hip to 90?. Also, pain with left hip external rotation and abduction. No erythema, warmth, swelling of any of the finger joints or wrist bones/joints bilaterally. 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 There is a superior bone spur and calcification of the superior joint capsule. X-ray left hip was interpreted as fairly unremarkable. I recommend physical therapy to help with both the right shoulder and the left hip. Nathanael Jones III MD HEMOGLOBIN A1C Collected: 07/17/2017 Status: F Source: [place] 9:49 AM [facility] REPOSITORY TYPE CODE TESTS RESULT OUT OF RANGE REFERENCE UNITS LAB L501.9985 4.2-6.3 % High HGB A1C 7.1 Performed By: #### L501.9985 #### [facility] [address] [place], [address] MICROALB:CREAT Collected: 07/17/2017 Status: F Source: [place] RATIO,RANDOM UR 9:49 AM [facility] REPOSITORY TYPE CODE TESTS RESULT OUT OF RANGE REFERENCE UNITS LAB L501.1200 NO RANGE EST. mg/dL < Normal UR 13.00 CREAT LAB L502.0500 NO RANGE EST. mg/L < 5.0 Normal MICROALBUMI N,UR LAB L502.0600 <30 mg/g CRE mg/g CRE Test Normal not performed MALB:CREAT Performed By: #### L502.0250 #### [facility] [address] [place], [address] BASIC METABOLIC Collected: 07/17/2017 Status: F Source: [place] PROFILE (BMP) 9:49 AM [facility] REPOSITORY TYPE CODE TESTS RESULT OUT OF RANGE REFERENCE UNITS LAB L501.0100 70-110 mg/dL High GLU 132 Result Comment: Fasting Glucose result greater than or equal to 126 mg/dL suggests DIABETES MELLITUS per A.D.A. criteria. LAB L501.1000 7-18 mg/dL High BUN 21 LAB L501.1100 0.70-1.30 mg/dL High CREAT,SERUM 1.37 Result Comment: The validity of the calculated GFR AND GFRAA in patients over 70 years has not been determined. Clinical correlation is essential. LAB L501.1110 >60 mL/min Low EST GFR 53 Result Comment: Non- GFR Calc LAB L501.1115 >60 mL/min Normal EST GFR - AA 64 Result Comment: GFR Calc LAB L501.1300 10-20 RATIO Normal BUN/CRE 15.3 LAB L501.2200 8.5-10.1 mg/dL CA Normal 9.4 LAB L501.5300 136-145 mmol/L NA Normal 138 LAB L501.5600 3.5-5.1 mmol/L K Normal 3.9 LAB L501.5900 98-107 mmol/L CL Normal 102 LAB L501.6100 21.0-32.0 mmol/L Normal CO2 25.0 LAB L501.6200 5-15 Normal GAP 11 Performed By: #### L500.2500, L501.4100, L501.4405 #### [facility] [address] [place], [address] AST(SGOT) Collected: 07/17/2017 Status: F Source: [place] 9:49 AM [facility] REPOSITORY TYPE CODE TESTS RESULT OUT OF RANGE REFERENCE UNITS LAB L501.4100 15-37 U/L High AST 43 Performed By: #### L500.2500, L501.4100, L501.4405 #### [facility] [address] [place], [address] ALANINE AMINOTRANSFERAS Collected: 07/17/2017 Status: F Source: [place] (SGPT) 9:49 AM [facility] REPOSITORY TYPE CODE TESTS RESULT OUT OF RANGE REFERENCE UNITS LAB L501.4405 16-61 U/L Normal ALT 61 Result Comment: Please note revised ALT reference range effective 2017. Performed By: #### L500.2500, L501.4100, L501.4405 #### [facility] [address] [place], [address] ALLERGIES ALLERGIES DATE TYPE / CODE NAME / CODE REACTION SEVERITY SOURCE 06/05/2018 Drug pioglitazone Upset Stomach Unknown [place] Allergy/416 HCl/[id number](RXNO [facility] [id number]([facility] Hospital ED CT) Repository 2006 DRUG PIOGLITAZONE HCL [facility] INGREDI/[address] [place] [address] [id number]([facility] Repository ED CT) ENCOUNTERS ENCOUNTERS ADMIT/DISCHARGE ACCOUNT ADMITTING ENCOUNTER LOCATION SOURCE NUMBER CLASS 06/05/2018/06/06/20 [id number] Ambulatory [address] Repository 06/05/2018 [id number] Ambulatory [facility] ing:PAVLAB Repository 06/05/2018/06/05/20 [id number] Ambulatory B[facility]:[place] [address] [facility] Repository 06/01/2018 [id number] Ambulatory [facility] ing:CT Repository 05/29/2018/05/29/20 [id number] Ambulatory BMSBuilding:[facility] [place] [facility] [place].Counts include 234 beds at the [facility] Hospital Repository 05/25/2018/05/25/20 [id number] Emergency [address] [facility] Hospital ing:ED Repository 05/21/2018 [id number] Ambulatory [facility] ing:[facility] Repository 05/14/2018/05/14/20 [id number] Ambulatory BMSBuilding:[facility] [place] [facility] [place] Repository 04/19/2018/04/19/20 [id number] Ambulatory BMSBuilding:[facility] [place] [facility] [place] Hospital Repository 04/09/2018 [id number] Ambulatory [facility] ing:LAB Repository 03/26/2018/03/27/20 [id number] Ambulatory [address] Repository 03/14/2018/03/14/20 [id number] Ambulatory [address] [facility] Hospital ing:PT Repository 03/13/2018 [id number] Ambulatory [facility] ing:PSN Repository 03/13/2018 [id number] Ambulatory BMSBuilding:[facility] Hospital Repository 03/13/2018 [id number] Ambulatory BMSBuilding:[facility] Hospital Repository 03/05/2018 [id number] Ambulatory [facility] ing:PAVLAB Repository 03/05/2018/03/05/20 [id number] Ambulatory BMSBuilding:[place] [facility] [place].Counts include 234 beds at the [facility] Hospital Repository 03/01/2018 [id number] Ambulatory [facility] ing:LAB Repository 01/08/2018/01/09/20 [id number] Emergency [address] HospitalBuild Hospital ing:ED Repository 12/08/2017 [id number] Ambulatory [facility] ing:SL Repository 11/29/2017 [id number] Ambulatory [facility] Repository 11/27/2017/11/28/19 [id number] Ambulatory BMSBuilding:[facility] [place] [facility] [place] Repository 11/14/2017 [id number] Ambulatory [facility] ing:LAB Repository 09/25/2017/09/26/19 [id number] Ambulatory [address] [place] Repository 09/25/2017/09/27/19 [id number] Ambulatory [address] Repository 09/07/2017 [id number] Ambulatory [facility] ing:LAB Repository 09/06/2017/09/07/19 [id number] Ambulatory BMSBuilding:B [place] [facility] [place] Repository 08/23/2017 [id number] Ambulatory [facility] ing:RAD Repository 07/31/2017/07/31/19 [id number] Ambulatory [address] Repository 07/31/2017/08/01/19 [id number] Ambulatory [address] Repository 07/17/2017 [id number] Ambulatory [facility] ing:LAB Repository PAYERS PAYERS ENCOUNTER GUARANTOR PAYER SUBSCRIBER SOURCE 06/05/2018 OLMAN Primary OLMAN [id number] Insurance:[address] Number: B: [id number], [place] [id number] Repository [address]Irb: (330) Date:5557-56-27DR [phone] () 529396OSCHELO [place] [address]MI: 06/05/2018 Secondary NOT GIVENUNK [place] Insurance:SELF PAY [facility] Number: Effective Repository Date:2018-06-05 06/05/2018 OLMAN Primary OLMANGALE MINAENTRUBER39 Insurance:[address] Number: B: [id number], [place] [id number] Repository 850[address]Gmu: (330) Date:1580-45-30RZ [phone] (HP) [id number] ROWLAND [address]YX: 06/05/2018 Secondary NOT GIVENUNK [place] Insurance:SELF PAY [facility] Number: Effective Repository Date:2018-06-04 06/01/2018 OLMAN Primary OLMAN Bradfordsepideh [id number] Insurance:AETNA BARRY[address] Number: B: [id number], [place] [id number] Repository [address]Sdl: (330) Date:1943-51-40ZD [phone] (HP) [id number] ROWLAND [address]IV: 06/01/2018 Secondary NOT GIVENUNK [place] Insurance:SELF PAY [facility] Number: Effective Repository Date:2018-05-29 05/29/2018 OLMAN Primary OLMAN Bradfordsepideh [id number] Insurance:AETNA BARRY[address] Number: B: [id number], [place] [id number] Repository [address]Oyi: ([phone]) Date:7406-02-54FH [phone] (HP) [id number] ROWLAND [address]NL: 05/29/2018 Secondary OLMAN [place] Insurance:MEDICARE SWARTZENTRUBERDO Community PART A BPolicy B: [id number] Hospital Number: Repository [id number] Date:2018-03-05 05/29/2018 Tertiary NOT GIVENUNK [place] Insurance:SELF PAY [facility] Number: Effective Repository Date:2018-05-21 05/25/2018 OLMAN Primary OLMAN [place] [id number] Insurance:AETNA BARRY[address] Number: B: [id number], [place] [id number] Repository 23231Znu: ([phone]) Date:6443-56-62DO [phone] (HP) 367352RNCHELO ROWLAND [address]PR: 05/25/2018 Secondary OLMAN [place] Insurance:MEDICARE SWARTZENTRUBERDO Community PART A BPolicy B: [id number] Hospital Number: Repository [id number] Date:2018-05-25 05/25/2018 Tertiary NOT GIVENUNK [place] Insurance:SELF PAY [facility] Number: Effective Repository Date:2018-05-25 05/21/2018 OLMAN Primary OLMAN [place] [id number] [facility] Number: B: [id number], [place] [id number] Repository [address]86[address]Pks: 330) Date:3730-24-66TW [phone] () [id number] CHELO DAVALOS [address]OG: 05/21/2018 Secondary NOT GIVENUNK [place] Insurance:SELF PAY [facility] Number: Effective Repository Date:2018-05-15 05/14/2018 OLMAN Primary OLMAN [place] [id number] Insurance:[address] Number: B: [id number], [place] [id number] Repository 14887Bys: (367) Date:5445-11-28CT [phone] () [id number] CHELO DAVALOS [address]TP: 05/14/2018 Secondary OLMAN [place] Insurance:MEDICARE SWARTZENTRUBERDO Community PART A BPolicy B: [id number] Hospital Number: Repository [id number] Date:2018-05-14 05/14/2018 Tertiary NOT GIVENUNK [place] Insurance:SELF PAY [facility] Number: Effective Repository Date:2018-05-14 04/19/2018 OLMAN Primary OLMAN [place] [id number] Insurance:[address] Number: B: [id number], [place] [id number] Repository 71012Zfw: (330) Date:6012-77-73WW [phone] (HP) [id number] [place] [address]JO: 04/19/2018 Secondary NOT GIVENUNK [place] Insurance:SELF PAY [facility] Number: Effective Repository Date:2018-04-19 04/09/2018 OLMAN Primary OLMANGALE [id number] Insurance:AETNA BARRY[address] Number: B: [id number], [place] [id number] Repository [address]12[address]Cuw: (330) Date:7162-92-30AL [phone] (HP) [id number] [place] [address]HJ: 04/09/2018 Secondary NOT GIVENUNK [place] Insurance:SELF PAY [facility] Number: Effective Repository Date:2018-04-09 03/14/2018 OLMAN Primary OLMANGALE [place] [id number] Insurance:AETNA BARRY[address] Number: B: [id number], [place] [id number] Repository [address]Ktd: (330) Date:8679-34-51ID [phone] (HP) [id number] [place] [address]QK: 03/14/2018 Secondary NOT GIVENUNK [place] Insurance:SELF PAY [facility] Number: Effective Repository Date:2018-02-13 03/13/2018 OLMAN Primary OLMAN [place] [id number] Insurance:AETNA BARRY[address] Number: B: [id number], [place] [id number] Repository [address]Avp: (330) Date:9917-50-33IG [phone] (HP) [id number] [place] [address]IA: 03/13/2018 Secondary NOT GIVENUNK [place] Insurance:SELF PAY Community [facility] Number: Effective Repository Date:2018-03-05 03/13/2018 OLMAN Primary OLMAN [id number] Insurance:AETNA LEONIE [address] Number: B: [id number], [place] [id number] Repository 515[address]Etv: (330) Date:2876-73-50IL [phone] () [id number] [place] [address]ZT: 03/13/2018 Secondary NOT GIVENUNK [place] Insurance:SELF PAY [facility] Number: Effective Repository Date:2018-03-13 03/13/2018 OLMAN Primary OLMAN [id number] Insurance:AEBONITA REDDY[address] Number: B: [id number], [place] [id number] Repository 87[address]Xze: (330) Date:9199-88-48QP [phone] () [id number] [place] [address]IX: 03/13/2018 Secondary NOT GIVENUNK [place] Insurance:SELF PAY [facility] Number: Effective Repository Date:2018-03-13 03/05/2018 OLMAN Primary OLMAN MINAENTRUBER39 Insurance:JOSE ALEJANDRO HADLEY [address] Number: B: [id number], [place] [id number] Repository 23[address]Dsm: (330) Date:6900-33-71HE [phone] () [id number] [place] [address]WX: 03/05/2018 Secondary NOT GIVENUNK [place] Insurance:SELF PAY [facility] Number: Effective Repository Date:2018-03-05 03/05/2018 OLMAN Primary OLMANGALE MINAENTRUBER39 Insurance:AETDERRELL REDDY[address] Number: B: [id number], [place] [id number] Repository 43500Qbc: (330) Date:2605-71-46TH [phone] (HP) [id number] CHELO DAVALOS [address]QF: 03/05/2018 Secondary NOT GIVENUNK [place] Insurance:SELF PAY [facility] Number: Effective Repository Date:2018-02-22 03/01/2018 OLMAN Primary OLMAN [place] [id number] Insurance:AETNA BARRY[address] Number: B: [id number], [place] [id number] Repository 644[address]Dsv: (330) Date:3368-89-79SE [phone] (HP) [id number] CHELO DAVALOS [address]BZ: 03/01/2018 Secondary NOT GIVENUNK [place] Insurance:SELF PAY [facility] Number: Effective Repository Date:2018-03-01 01/08/2018 OLMAN Primary OLMAN [place] [id number] Insurance:AETNA BARRY[address] Number: B: [id number], [place] [id number] Repository 55888Zmv: (330) Date:2923-68-64CV [phone] (HP) [id number] CHELO DAVALOS [address]EJ: 01/08/2018 Secondary NOT GIVENUNK [place] Insurance:SELF PAY [facility] Number: Effective Repository Date:2018-01-08 12/08/2017 OLMAN Primary OLMAN [place] [id number] Insurance:AETNA BARRY[address] Number: B: [id number], [place] [id number] Repository 84050Wld: (330) Date:9513-09-19NC [phone] (HP) [id number] [place] [address]BC: 12/08/2017 Secondary NOT GIVENUNK [place] Insurance:SELF PAY [facility] Number: Effective Repository Date:2017-11-30 11/29/2017 OLMAN Primary OLMAN [id number] Insurance:BRIGETTE HADLEY Community [address] PPOPolicy B: [id number], [place] Number: Repository [phone]: 330 [id number] [phone] Date:0482-52-61IW [address]APTRRAT, [place] [address]WS: 11/29/2017 Secondary NOT GIVENUNK [place] Insurance:SELF PAY [facility] Number: Effective Repository Date:2017-11-29 11/27/2017 OLMAN Primary OLMAN [id number] Insurance:JOSE ALEJANDRO DESIRRENETTABENI[address] Number: B: [id number], [place] [id number] Repository 35[address]Rap: 330) Date:2844-74-07RF [phone] () 939168WBCHELO ROWLAND [address]RG: 11/27/2017 Secondary NOT GIVENUNK [place] Insurance:SELF PAY [facility] Number: Effective Repository Date:2017-11-17 11/14/2017 OLMAN Primary OLMAN [id number] Insurance:JOSE ALEJANDRO REDDY[address] Number: B: [id number], [place] [id number] Repository 316[address]Yaw: 330) Date:9869-86-04CG [phone] () [id number] ROWLAND [address]LJ: 11/14/2017 Secondary NOT GIVENUNK [place] Insurance:SELF PAY [facility] Number: Effective Repository Date:2017-11-14 09/07/2017 OLMAN Primary OLMAN [id number] Insurance:JOSE ALEJANDRO REDDY[address] Number: B: [id number], [place] [id number] Repository 849[address]Rva: (330) Date:5246-13-46XE [phone] (HP) [id number] [place] [address]AJ: 09/07/2017 Secondary NOT GIVENUNK [place] Insurance:SELF PAY [facility] Number: Effective Repository Date:2017-09-07 09/06/2017 OLMAN Primary OLMANGALE Felder [id number] Insurance:JOSE ALEJANDRO HADLEY [address]Polun[facility] Number: B: [id number], [place] [id number] Repository 284[address]Cto: (330) Date:7817-38-08IS [phone] (HP) [id number] [address]GG: 09/06/2017 Secondary NOT GIVENUNK [place] Insurance:SELF PAY [facility] Number: Effective Repository Date:2017-09-06 08/23/2017 OLMAN Primary OLMANGALE Felder [id number] Insurance:JOSE ALEJANDRO HADLEY [address] Number: B: [id number], [place] [id number] Repository 000[address]Nzg: (330) Date:5494-97-85JP [phone] (HP) [id number] [address]XF: 08/23/2017 Secondary NOT GIVENUNK [place] Insurance:SELF PAY [facility] Number: Effective Repository Date:2017-08-18 07/17/2017 OLMAN Primary OLMANGALE Felder [id number] Insurance:BRIGETTE HADLEY Community [address] PPOPolun[facility] B: [id number], [place] Number: Repository 26[address]Aih: (330) [id number] [phone] (HP) Date:4905-10-27IE [address]PAL[place], [place] [address]BV: 07/17/2017 Secondary NOT GIVENUNK [place] Insurance:SELF PAY [facility] Number: Effective Repository Date:2017-07-17
== END ==
PROVIDERS: Internal Medicine Cardiovascular Disease; Family Provider Family Medicine; PCP Family Medicine; Referring Provider Physician Assistant Medical; Visit Provider Physician Assistant Medical
DX: I25.10 Atherosclerotic heart disease of native coronary artery without angina pectoris (principal); R07.9 Chest pain, unspecified; E11.9 Type 2 diabetes mellitus without complications; R06.00 Dyspnea, unspecified; R06.02 Shortness of breath; I42.0 Dilated cardiomyopathy; R00.2 Palpitations; I10 Essential (primary) hypertension
CPT/HCPCS: 36415; 80048; 83880; 85027; A4216; J2785

== ENCOUNTER 2018-05-25 13:41 | Emergency (ER) | payer MEDICARE, SELFPAY ==
[2018-05-14 15:59] VITALS: BMI 41.7
[2018-05-25 13:44] VITALS: BP 184/85; PULSE 106; RESP 22; TEMP 36.4; O2SAT 95; BMI 42.0
[2018-05-25 13:52] VITALS: O2SAT 97
--- NOTE | 2018-05-25 13:56 | RAD_ITS ---
STUDY: X-RAY CHEST REASON FOR EXAM: Male, 82 years old. Chest pain and shortness of breath. TECHNIQUE: Single AP portable view of the chest. COMPARISON: Comparison is made with prior study January 20, 2017. FINDINGS: EKG electrodes are seen. Since prior study, there has been a progression of the increased markings in the lingular segment of the left upper lobe. This may represent either infiltration and/or scarring. The right lung is unchanged. Sternal cerclage wires and vascular clips are present from a prior sternotomy and coronary artery bypass graft procedure (CABG). Cardiomegaly. Normal mediastinum and connie. Normal visualized pulmonary arteries. There is atherosclerotic calcification of the aortic arch with tortuosity. Normal visualized thoracic spine. Normal visualized ribs, clavicles, and shoulders. Moderate sized hiatal hernia. RAD/Chest 1 View (Portable) IMPRESSION: Since prior study, there has been progressive scarring and/or atelectasis in the lingular segment of the left upper lobe. Electronically Signed: Jon Waters MD at 14:23 EST Tel [phone], Service support ,
--- NOTE | 2018-05-25 13:56 | EKG12_ITS ---
Test Reason : SOB Blood Pressure : / mmHG Vent. Rate : 084 BPM Atrial Rate : 084 BPM P-R Int : 138 ms QRS Dur : 128 ms QT Int : 378 ms P-R-T Axes : 046 -35 014 degrees QTc Int : 446 ms Sinus rhythm with Premature atrial complexes Left axis deviation Right bundle branch block Abnormal ECG Confirmed by GÉNESIS GUTIÉRREZ, JENNIFER ([id number]), pictures editor SANIA GARICA ([id number]) on 05/28/2018 1:55:17 PM Referred By: TIM Confirmed By:JENNIFER CAPPS MD
--- NOTE | 2018-05-25 13:57 | ED.VISSUMM ---
- ER Visit Summary Date of Service: 05/25/18 Chief Complaint: Admitted shortness of breath History of Present Illness: The patient is a 82 M history of CAD with cardiac stent. Insulin-dependent diabetes, hypertension, high cholesterol. Previously had a mediastinoscopy with a complication of an aortic injury. Where he had to have aortic repair. Patient states he is minimally short of breath for 3+ weeks. States he saw his clinical services assistant who did not feel was a cardiac etiology. He denies any significant cough or fever. He denies any chest pain. No hemoptysis. No history of DVT or PE. No recent travel, surgery or immobilization. No calf pain or swelling. He said it is worse supine. Also with exertion. He is normally not on oxygen and denies any underlying lung disease. Physical Examination: Older male no acute distress. at bedside. Vital signs are stable afebrile. Pulse ox 95% on room air no signs of hypoxia. HEENT exam unremarkable. Neck nontender no lymphadenopathy. No JVD. Lungs clear to auscultation bilaterally. Heart regular rhythm no murmur rate of about 90 on my centimeters. Chest wall nontender. Abdomen soft and nontender. Normal bowel sounds no peritoneal signs. Patient is moving all 4 extremities. Calves are nontender without edema or cords. Neurologically he is awake and alert with no focal motor deficits. Test Results: CBC normal white count of 4. Hemoglobin 13. Letter lites unremarkable creatinine 1.3. Gap 7. Troponin normal. Chest x-ray normal cardiac silhouette and mediastinum unremarkable. Read by myself. Portable one view. EKG sinus rhythm rate 84 with a right bundle branch block. No change from prior EKG from February 2017. ED staff walked the patient without oxygen and his sats stayed 95% or better. Emergency Department Course and Treatment: Well-appearing older male complaining of dyspnea with basically an unremarkable exam. Treatment Plan: Repeat exam the patient is doing well at 1507. His exam is normal. He asked me if this could be stress I told him that is always a possibility. That we could not find a specific biologic cause. He and his are comfortable with him being discharged home to follow-up with his primary care physician. Disposition: Discharge Impression: Acute shortness of breath of uncertain etiology History of insulin-dependent diabetes, hypertension, coronary disease with a prior cardiac stent. This note was generated with Dragon dictation software. It may contain incorrect words, spelling, and punctuation that were not noted in review of the chart prior to signing ED Disposition - Plan for ED Patient: Chief Complaint: Shortness of Breath Referrals: Soham Jones III, MD [Primary Care Provider] -
[2018-05-25 14:00] VITALS: O2SAT 99
[2018-05-25 14:27] LABS: Absolute Neutrophil Count 2.7 X10^3/uL (2.0-7.7); Basophil# 0.04 X10^3/uL; Basophil% 0.9 % (0-1); Eosinophil# 0.09 X10^3/uL; Hematocrit 40.2 % (40-54); Hemoglobin 13.3 g/dl (13.0-16.5); Mean Corp Hgb Conc 33.1 g/gl (32-36); Mean Corpuscular Hgb 30.6 pg (27.0-32.0); Mean Corpuscular Volume 92.4 fL (80-94); Mean Platelet Vol. 9.1 fl (6.2-12.0); Monocyte# 0.41 X10^3/uL; Monocyte% 9.3 % (0-10); Neutrophil # 2.73 X10^3/uL (2.7-7.7); Neutrophil % 62.1 % (47-70); POSITIVE COUNT NO; POSITIVE DIFFERENTIAL NO; POSITIVE MORPHOLOGY NO; Platelet Count 225 K/mm3 (150-450); RBC Distribution Width CV 13.9 % (11.6-14.6); RBC Distribution Width SD 45.6 fl (35.1-43.9); Red Blood Count 4.35 M/mm3 (4.6-6.2); White Blood Count 4.4 K/mm3 (4.4-11.0)
[2018-05-25 14:41] LABS: Anion Gap 7 (5-15); BUN 24 mg/dL (7-18); BUN/Creat Ratio 17.8 RATIO (10-20); Calcium,Total 9.4 mg/dL (8.5-10.1); Chloride 104 mmol/L (98-107); Creatinine, Serum 1.35 mg/dL (0.70-1.30); EST Glomerular Filtration Rate 54 mL/min (>60); Est Glom Filt Rate - Afr Amer 65 mL/min (>60); Estimated Creatinine Clearance 36.54 ml/min; Glucose 173 mg/dL (74-106); Potassium 5.1 mmol/L (3.5-5.1); Sodium Level 137 mmol/L (136-145)
[2018-05-25 14:47] VITALS: O2SAT 96
--- NOTE | 2018-05-25 15:12 | ED.DEP ---
ED Disposition - Plan for ED Patient: Disposition: Home or Assisted Living Chief Complaint: Shortness of Breath Instructions: ED Dyspnea Shortness of Breath Referrals: Soham Jones III, MD [Primary Care Provider] - As soon as possible Additional Instructions: Your labs and exam are unremarkable today. I do not have a specific cause for your shortness of breath. Follow-up with your primary care physician.
[2018-05-25 15:25] VITALS: BP 132/93; PULSE 84; RESP 18; O2SAT 97
--- NOTE | 2018-05-25 15:25 | ED.RN ---
PT GIVEN WRITTREN AND VERBAL D/C INSTRUCTIONS. PT VERBALIZES UNDERSTANDING AND DENIES ANY FURTHER QUESTIONS. I/V D/C AND COVERED WITH 2X2 GAUZE AND PAPER TAPE. PT DRESSES SELF AND AMBULATES OUT OF DEPT WITH . PT TO RETURN TO ED FOR ANY NEW OR WORSENED SX.
== END 2018-05-25 15:30 | disposition home or self-care (01) ==
PROVIDERS: Emergency Provider Emergency Medicine; Family Provider Family Medicine; PCP Family Medicine
DX: R06.00 Dyspnea, unspecified (principal); I45.10 Unspecified right bundle-branch block; I25.10 Atherosclerotic heart disease of native coronary artery without angina pectoris; E11.9 Type 2 diabetes mellitus without complications; I10 Essential (primary) hypertension; E78.00 Pure hypercholesterolemia, unspecified; Z95.5 Presence of coronary angioplasty implant and graft; Z79.4 Long term (current) use of insulin; Z79.84 Long term (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 of oral hypoglycemic drugs; Z79.82 Long term (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 of aspirin; Z79.899 Other long term (current) drug therapy
CPT/HCPCS: 71045; 80048; 84484; 85025; 93005; 99284; A4216

== ENCOUNTER → 2018-06-01 13:26 | Outpatient (CLI) | payer MEDICARE, SELFPAY ==
[2018-05-29 12:50] VITALS: BMI 41.8
--- NOTE | 2018-06-01 13:27 | CT_ITS ---
STUDY: CTA CHEST REASON FOR EXAM: Male, 82 years old. Shortness of breath for one month, prior CABG RADIATION DOSAGE (If Supplied By Facility): CTDIvol = ( 14.62 ) mGy, DLP = ( 654.56 ) mGycm TECHNIQUE: The examination was performed with the intravenous administration of 100 ml of Isovue 370 contrast material. Post-processing of the angiographic images was performed, with multiplanar reformation and 3D reconstruction. Individualized dose optimization techniques were used for this CT. COMPARISON: 03/08/2016 FINDINGS: Normal enhancement of the main pulmonary artery and right and left pulmonary arteries. Normal enhancement of the bilateral peripheral pulmonary arteries. There is no demonstrated pulmonary embolism. Normal thoracic aorta and visualized great vessels. There is no demonstrated aortic dissection. Normal heart and pericardium. Sternal wires and mediastinal surgical clips compatible with prior CABG. No mediastinal or axillary adenopathy. No hilar adenopathy. Normal visualized trachea and bronchi. The lungs are well expanded. Fibrotic bands in the left lung base stable. Pleural thickening along the posterior and basilar left lung compatible with prior thoracotomy. Deformity of multiple left ribs compatible with prior thoracotomy. Stable appearance when compared to the prior study. Old right rib fractures are noted. There are degenerative changes of the thoracic spine with dextroscoliosis. Fusion hardware in the lumbar spine partially visualized. A moderate size hiatal hernia composed of gastric fundus identified. Diminished intensity throughout the visualized liver with multiple hepatic cysts overall stable. The adrenal glands are not focally enlarged. CT/CTA Chest W/WO Contrast IMPRESSION: 1. No central or segmental pulmonary embolism. No thoracic aortic dissection. 2. Stable hiatal hernia. Stable hepatic cysts. 3. Status post CABG, left thoracotomy. Stable pleural and parenchymal fibrotic changes. Electronically Signed: Rakesh Rolle MD at 18:56 EST , Service support ,
--- OUTSIDE RECORDS SUMMARY | 2018-09-05 03:43 | XMS RPT_ITS ---
:1935 Author Organization OHIP Support Name Relationship Address Phone R Unavailable Unavailable Unavailable SWARTZENTRUBER, J LUIS Unavailable [address] + [place] [address] R Unavailable Unavailable Unavailable SWARTZENTRUBER, J LUIS Unavailable [address] + [place] [address] R Unavailable Unavailable Unavailable SWARTZENTRUBER, J LUIS Unavailable [address] + [place] [address] R Unavailable Unavailable Unavailable SWARTZENTRUBER, J LUIS Unavailable [address] + [place] [address] R Unavailable Unavailable Unavailable SWARTZENTRUBER, J LUIS Unavailable [address] + [place] [address] R Unavailable Unavailable Unavailable SWARTZENTRUBER, J LUIS Unavailable [address] + [place] [address] R Unavailable Unavailable Unavailable SWARTZENTRUBER, J LUIS Unavailable [address] + [place] [address] R Unavailable Unavailable Unavailable SWARTZENTRUBER, J LUIS Unavailable [address] + [place] [address] R Unavailable Unavailable Unavailable SWARTZENTRUBER, J LUIS Unavailable [address] + [place] [address] R Unavailable Unavailable Unavailable SWARTZENTRUBER, J LUIS Unavailable [address] + [place] [address] R Unavailable Unavailable Unavailable SWARTZENTRUBER, J LUIS Unavailable [address] + [place] [address] R Unavailable Unavailable Unavailable SWARTZENTRUBER, J LUIS Unavailable [address] + [place] [address] R Unavailable Unavailable Unavailable SWARTZENTRUBER, J LUIS Unavailable [address] + [place] [address] R Unavailable Unavailable Unavailable SWARTZENTRUBER, J LUIS Unavailable [address] + [place] [address] R Unavailable Unavailable Unavailable SWARTZENTRUBER, J LUIS Unavailable [address] + [place] [address] R Unavailable Unavailable Unavailable SWARTZENTRUBER, J LUIS Unavailable [address] + [place] [address] R Unavailable Unavailable Unavailable SWARTZENTRUBER, J LUIS Unavailable [address] + [place] [address] R Unavailable Unavailable Unavailable SWARTZENTRUBER, J LUIS Unavailable [address] + [place] [address] R Unavailable Unavailable Unavailable SWARTZENTRUBER, J LUIS Unavailable [address] + [place] [address] R Unavailable Unavailable Unavailable SWARTZENTRUBER, J LUIS Unavailable [address] + [place] [address] R Unavailable Unavailable Unavailable SWARTZENTRUBER, J LUIS Unavailable [address] + [place] [address] R Unavailable Unavailable Unavailable SWARTZENTRUBER, J LUIS Unavailable [address] + [place] [address] R Unavailable Unavailable Unavailable SWARTZENTRUBER, J LUIS Unavailable [address] + [place] [address] R Unavailable Unavailable Unavailable SWARTZENTRUBER, J LUIS Unavailable [address] + [place] [address] R Unavailable Unavailable Unavailable SWARTZENTRUBER, J LUIS Unavailable [address] + [place] [address] R Unavailable Unavailable Unavailable SWARTZENTRUBER, J LUIS Unavailable [address] + [place] [address] R Unavailable Unavailable Unavailable SWARTZENTRUBER, J LUIS Unavailable [address] + [place] [address] R Unavailable Unavailable Unavailable SWARTZENTRUBER, J LUIS Unavailable [address] + [place] [address] R Unavailable Unavailable Unavailable J LUIS REDDY Unavailable [address] + [place] [address] R Unavailable Unavailable Unavailable J LUIS REDDY Unavailable [address] + [place] [address] R Unavailable Unavailable Unavailable J LUIS REDDY Unavailable [address] + [place] [address] R Unavailable Unavailable Unavailable J LUIS REDDY Unavailable [address] + [place] [address] Care Team Providers Name Role Phone CEBUL III, NATHANAEL A Attending Unavailable CEBUL III, NATHANAEL A Referring Unavailable CEBUL III, NATHANAEL A Referring Unavailable ALEX ELLISON Referring Unavailable CEBUL III, NATHANAEL A Attending Unavailable Libia SINGH (NEERAJ-C) Attending Unavailable Libia SINGH (YOSEFC) Attending Unavailable Americo Nazario D.O. Attending Unavailable Cebul III, Nathanael Referring Unavailable Americo Nazario D.O. Attending Unavailable Americo Nazario D.O. Referring Unavailable Cebul III, Nathanael Primary Care Unavailable Yobani Durbin Attending Unavailable Lela Sherman Referring Unavailable ShermanLela Attending Unavailable Cebul III, Nathanael Referring Unavailable ShermanLela Attending Unavailable Cebul III, Nathanael Primary Care [...] Unavailable Cebul III, Nathanael Primary Care Unavailable Americo Nazario D.O. Attending Unavailable Lela Sherman Referring Unavailable PoliDavid olea Attending Unavailable Poli, Centuria Referring Unavailable Cebul III, Nathanael Primary Care Unavailable Olivia Jenkins Attending Unavailable Olivia Jenkins Referring Unavailable Cebul III, Nathanael Primary Care Unavailable Americo Nazario D.O. Attending Unavailable Cebul [...] Courtney Attending Unavailable Jewel Carmona Attending Unavailable BasaliJewel Referring Unavailable Cebul III, Nathanael Primary Care [...] III, Nathanael Primary Care Unavailable David As[employer] Consulting Unavailable Cebul III, Nathanael Primary Care Unavailable Geo Cristina Attending Unavailable PROBLEMS PROBLEMS DATE TYPE CONDITION / CODE ATTENDING STATUS SOURCE 07/03/2018 Unknown E11.9 - Type 2 Olivia Jenkins Active [facility] without complications Hospital / E11.9(ICD-10) Repository 07/03/2018 Unknown E03.8 - Other Olivia Jenkins Active [facility] specified Community hypothyroidism / Hospital E03.8(ICD-10) Repository 06/13/2018 Unknown I25.10 - Sklya Espinoza Atherosclerotic heart Audelia Reza [facility] disease [facility] coronary artery Repository without angina pectoris / I25.10(ICD-10) 06/13/2018 Unknown E78.5 - Espinoza, Active [place] Hyperlipidemia, Audelia [facility] unspecified / Hospital E78.5(ICD-10) Repository 06/13/2018 Unknown I10 - Essential Espinoza, Active [facility] (primary) [facility] hypertension / Hospital I10(ICD-10) Repository 06/13/2018 Unknown R06.01 - Orthopnea / Olga, Active [facility] R06.01(ICD-10) [facility] Hospital Repository 06/13/2018 Unknown R06.00 - Dyspnea, Olga, Active [facility] unspecified / [facility] R06.00(ICD-10) Hospital Repository 06/21/2018 Unknown R06.02 - Shortness of Americo Brown, Active [facility] breath / D.O. Community R06.02(ICD-10) Hospital Repository 05/15/2018 Unknown R07.9 - Chest pain, Olga, Active [facility] unspecified / [facility] R07.9(ICD-10) Hospital Repository 04/19/2018 Unknown Z98.61 - Coronary Poli, David Active [facility] angioplasty status / Community Z98.61(ICD-10) Hospital Repository 04/19/2018 Unknown E78.00 - Pure Poli, Centuria Active [facility] hypercholesterolemia, Community unspecified / Hospital E78.00(ICD-10) Repository 03/01/2018 Unknown E11.65 - Type 2 Olivia Jenkins Active [facility] diabetes mellitus Community with hyperglycemia / Hospital E11.65(ICD-10) Repository 01/08/2018 Unknown S43.409A - Ungur, Remus Active [facility] Unspecified sprain of Community unspecified shoulder Hospital joint, initial Repository encounter / S43.409A(ICD-10) 11/14/2017 Unknown E78.2 - Mixed Olivia Jenkins Active [facility] hyperlipidemia / Community E78.2(ICD-10) Hospital Repository 09/25/2017 Active Cough / R05(ICD-10) NA Active [facility] [place] Repository 07/31/2017 Active 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 [place] [address] OFFICE VISIT Date of Service: 07/11/18 MR#: [id number] Acct: [id number] Name: OLMAN REDDY Rep #: [id number] : 1935 Provider: Americo Nazario D.O. Age/Sex: 82/M [facility] Status: Signed Assessment AND Plan 1. Shortness of breath R06.02 Plan Most likely secondary to morbid obesity and generalized deconditioning. The patient has had an extensive workup from both a pulmonary and cardiac perspective, without significant disease identified. The patient has been encouraged to make attempts at dietary and lifestyle modification in order to encourage weight loss. 2. DANYELL (obstructive sleep apnea) G47.33 Plan The patient has been compliant with the use of nocturnal BiPAP therapy and is benefiting clinically from its use. This will be continued without change. [facility] and faxed so that the patient can receive new supplies. 3. Class 3 severe obesity due to excess calories with body mass index (BMI) of 40.0 to 44.9 in adult, unspecified whether serious comorbidity present E66.01; Z68.41 Plan Weight loss through dietary modification and a graded exercise regimen is strongly encouraged. Plan Detail Follow Up 6 Months (DMB) HPI HPI Comments Details: The patient is an 82-year-old male who presents to the clinic today for a routine scheduled follow-up office visit due to underlying obstructive sleep apnea. His is present at today's office visit. A 6-minute walk test completed in May 2018 revealed no need for supplemental oxygen. A surface echocardiogram was completed in February 2018 and revealed an ejection fraction of 55% and indeterminant diastolic dysfunction. The RVSP was unable to be estimated. The patient also had prior pulmonary function testing completed which were grossly normal. A CTA chest completed in mid May 2018 revealed no evidence for pulmonary embolism. There was no mediastinal or hilar adenopathy. Incidental note was made of a moderate sized hiatal hernia. The patient subsequently underwent a cardiac catheterization in June 2018 which revealed nonobstructive coronary disease. Right heart pressures were noted to be normal. The patient's nocturnal compliance report was personally reviewed at today's office visit. Over the last 30 days, he has demonstrated an overall compliance rate of 100%. He is currently utilizing his nocturnal BiPAP on average just over 8 hours per night. He has a prescribed pressure support of 16/12 centimeters of water. He has a residual AHI of 3.0 with air leaks noted. Today, the patient reports no significant respiratory related issues. He has baseline, chronic exertional dyspnea, which is unchanged from previous. The patient does have an intermittent dry cough, but denies any chest tightness or wheezing. I did explain to him in no uncertain terms that the reason that he continues to be short of breath is most likely due to his morbid obesity and generalized deconditioning. He does seem motivated to make some lifestyle changes in terms of dietary intake and increasing his exercise capacity. The patient does report that he is in need of a new order for [employer] so that he can receive new PAP supplies, as his mask was last replaced greater than 6 months ago. 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 Accompanied by: Is patient in pain?: No Allergies pioglitazone HCl [From [employer]] Adverse Reaction (Verified 06/29/18 11:01) Upset Stomach Medications Levothyroxine [Synthroid] 50 mcg PO DAILY 01/05/14 [History Confirmed 06/29/18] Metformin HCl [Glucophage] 1,000 mg PO BIDCM 01/05/14 [History Confirmed 06/29/18] Pravastatin [Pravachol] 20 mg PO DAILY 01/05/14 [History Confirmed 06/29/18] Cholecalciferol (Vitamin D3) [Vitamin D3] 5,000 unit PO DAILY 06/29/15 [History Confirmed 06/29/18] Finasteride [Proscar] 5 mg PO DAILY 06/29/15 [History Confirmed 06/29/18] Insulin NPH/Reg 70/30 [Novolin 70/30] 36 units SC DINNER 06/29/15 [History Confirmed 06/29/18] Insulin NPH/Reg 70/30 [Novolin 70/30] 50 units SC BREAKFAST 06/29/15 [History Confirmed 06/29/18] Pantoprazole Sodium [Protonix] 40 mg PO DAILY 06/29/15 [History Confirmed 06/29/18] Aspirin [Adult Low Dose Aspirin EC] 81 mg PO DAILY 07/24/15 [History Confirmed 06/29/18] furosemide 40 mg tablet 40 mg PO DAILY #90 tab 09/06/17 [Rx Confirmed 06/29/18] losartan 50 mg tablet 50 mg PO QDAY #90 tab 09/06/17 [Rx Confirmed 06/29/18] isosorbide mononitrate ER 30 mg tablet,extended release 24 hr 30 mg PO DAILY #90 tab 04/19/18 [Rx Confirmed 06/29/18] amlodipine 5 mg tablet 5 mg PO DAILY #30 tab 05/14/18 [Rx Confirmed 06/29/18] albuterol sulfate HFA 90 mcg/actuation aerosol inhaler 2 puff INHALATION Q4H PRN #1 device 05/29/18 [Rx Confirmed 06/29/18] clopidogrel 75 mg tablet 75 mg PO DAILY #90 tab 06/20/18 [Rx Confirmed 06/29/18] [facility] Medical History Diabetes mellitus (Chronic) BMI 40.0-44.9, adult (Chronic) Dyspnea (Chronic) Cough (Chronic) Shortness of breath (Chronic) Obesity (Chronic) Upper respiratory infection (Resolved) Right flank pain (Resolved) Atherosclerotic heart disease of [place] coronary artery without angina pectoris (Chronic) 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 (Chronic) 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) Palpitations (Chronic) Nonrheumatic [...] S/P PTCA (percutaneous transluminal coronary angioplasty) (Chronic) Hx of cardiac cath (Resolved) History of lymph node biopsy (Chronic) History [...] home: Yes Review of Systems Const CONSTITUTIONAL: Negative anorexia, body ache, chills, daytime sleepiness, fever(s), night sweats, oral thrush, stops breathing during sleep, weight loss, sleeping in chair, fatigue, weight loss, weight gain, frequent colds, seasonal allergies, other, headache(s) or orthopnea EETM Ear Nose Throat Mouth: Positive hearing normal and nasal discharge (clear); negative hard of hearing, hoarseness, dry mouth in morning, change in vision, itchy eyes, eye pain, swallowing Difficulty, ear pain, nose bleed, headache(s), mouth pain, nasal congestion, post nasal drip, sinus pain, sinus pressure, sore throat or other Cardio Cardiovascular: Negative chest pain, chest pain at rest, chest pain with activity, irregular heart rhythm, edema, shortness of breath when lying down, palpitations, murmur or other Resp Respiratory: Positive as per HPI, shortness of breath and cough cough: Positive non-productive; negative pain with cough, wheezing, chest congestion, chest tightness, pain on inspiration, [...] rub, gallop or murmur GI GI: Positive obese Soft without distention Genitourinary: Positive deferred Musc Musculoskeletal: Positive steady gait Skin Pulmonary Skin Exam: Positive intact; negative lesion, ulcers, dermal atrophy or rash Pulses Pulse: Yes Pedal pulses present: Extremities Extremities: No clubbing, No cyanosis, No edema Neuro Neurologic: Yes conversant Lymph Lymphatic: No lymphadenopathy Psych Appearance: Positive grossly normal Mental Status: Positive mental status grossly normal Mood: Positive congruent mood Affect: Positive normal affect Coding Level of Care Code Off vis,est,level 3 Diagnoses Shortness of breath R06.02 DANYELL (obstructive sleep apnea) G47.33 Class 3 severe obesity due to excess calories with body mass index (BMI) of 40.0 to 44.9 in adult, unspecified whether serious comorbidity present E66.01; Z68.41 Obesity type: due to excess calories Obesity classification: adult class 3 (BMI >= 40) Serious obesity comorbidity presence: unspecified whether serious comorbidity present Body mass index: BMI 40.0-44.9 07/11/18 0956 <Electronically signed by Americo Nazario DO> Date Americo Nazario DO Cosigner Signature: Date (if applicable) CC: Nathanael Jones III, MD MICROALB:CREAT Collected: 07/03/2018 Status: F Source: [place] RATIO,RANDOM UR 12:52 PM [facility] REPOSITORY TYPE CODE TESTS RESULT OUT OF RANGE REFERENCE UNITS LAB L501.1200 NO RANGE EST. mg/dL Normal UR CREAT 55.00 LAB L502.0500 NO RANGE EST. mg/L Normal 9.1 MICROALBUMIN ,UR LAB L502.0600 <30 mg/g CRE mg/g CRE Normal 16.6 MALB:CREAT Performed By: #### L502.0250 #### [facility] [address] [place], [address] HEMOGLOBIN A1C Collected: 07/03/2018 Status: F Source: [place] 12:52 PM [facility] REPOSITORY TYPE CODE TESTS RESULT OUT OF RANGE REFERENCE UNITS LAB L501.9985 4.2-6.3 % High HGB A1C 7.7 Performed By: #### L501.9985 #### [facility] [address] [facility] [facility] [place], [address] BASIC METABOLIC Collected: 07/03/2018 Status: F Source: [place] PROFILE (BMP) 12:52 PM [facility] REPOSITORY TYPE CODE TESTS RESULT OUT OF RANGE REFERENCE UNITS LAB L501.0100 74-106 mg/dL High GLU 145 Result Comment: Fasting Glucose result greater than or equal to 126 mg/dL suggests DIABETES MELLITUS per A.D.A. criteria. Please note revised GLUCOSE reference range effective 2017. LAB L501.1000 7-18 mg/dL Normal BUN 16 LAB L501.1100 0.70-1.30 mg/dL High CREAT,SERUM 1.44 Result Comment: The validity of the calculated GFR AND GFRAA in patients over 70 years has not been determined. Clinical correlation is essential. LAB L501.1110 >60 mL/min Low EST GFR 50 Result Comment: Non- GFR Calc LAB L501.1115 >60 mL/min Normal EST GFR - AA 61 Result Comment: GFR Calc LAB L501.1300 10-20 RATIO Normal BUN/CRE 11.1 LAB L501.2200 8.5-10.1 mg/dL CA Normal 9.0 LAB L501.5300 136-145 mmol/L NA Normal 139 LAB L501.5600 3.5-5.1 mmol/L K Normal 4.3 LAB L501.5900 98-107 mmol/L CL Normal 103 LAB L501.6100 21.0-32.0 mmol/L Normal CO2 29.0 LAB L501.6200 5-15 Normal GAP 7 Performed By: #### L500.2500, L501.4100, L501.4405, L501.9520 #### [facility] [address] [place], [address] AST(SGOT) Collected: 07/03/2018 Status: F Source: [place] 12:52 PM [facility] REPOSITORY TYPE CODE TESTS RESULT OUT OF RANGE REFERENCE UNITS LAB L501.4100 15-37 U/L High AST 47 Performed By: #### L500.2500, L501.4100, L501.4405, L501.9520 #### [facility] [address] [place], [address] ALANINE AMINOTRANSFERAS Collected: 07/03/2018 Status: F Source: [place] (SGPT) 12:52 PM [facility] REPOSITORY TYPE CODE TESTS RESULT OUT OF RANGE REFERENCE UNITS LAB L501.4405 16-61 U/L Normal ALT 56 Performed By: #### L500.2500, L501.4100, L501.4405, L501.9520 #### [facility] [address] [place], [address] THYROID STIM HORMONE Collected: 07/03/2018 Status: F Source: [place] (TSH) 12:52 PM [facility] REPOSITORY TYPE CODE TESTS RESULT OUT OF RANGE REFERENCE UNITS LAB L501.9520 0.358-3.74 uIU/mL Normal TSH 1.16 Performed By: #### L500.2500, L501.4100, L501.4405, L501.9520 #### [facility] [address] [place], [address] VENOUS BLOOD GAS Collected: 07/02/2018 Status: F Source: [place] 10:15 AM [facility] REPOSITORY TYPE CODE TESTS RESULT OUT OF RANGE REFERENCE UNITS LAB L9000.9990 Normal BLD GAS [place] TYPE LAB L9002.1110 7.32-7.42 Normal VBGpH - 7.35 I-STAT LAB L9002.1212 41-51 mmHg Normal VBG pCO2 43.5 - ISTA LAB L9002.1310 25-40 mmHg Normal VBG PO2 31 I-STAT LAB L9002.2300 22-26 mmol/L Normal VBG HCO3 24 ISTAT LAB L9002.2400 -1.0-3.5 mmol/L Low VBG BE -2 ISTAT LAB L9002.2410 50-70 % Normal VBG SO2 56 ISTAT LAB L9002.2415 23-33 mmol/L Normal VBG O2 CT 25 ISTAT Performed By: #### L9000.0810 #### [facility] Laboratory Point of Care [address] [place] [address] BLOOD GASES BY CPS Collected: 07/02/2018 Status: F Source: [place] 10:11 AM [facility] REPOSITORY TYPE CODE TESTS RESULT OUT OF RANGE REFERENCE UNITS LAB L9000.9990 Normal BLD GAS ART TYPE LAB L9001.1110 7.35-7.45 Normal pH - 7.41 I-STAT LAB L9001.1210 35-45 mmHg Normal pCO2 - 36.8 ISTAT LAB L9001.1310 75-100 mmHG Low PO2 68 I-STAT LAB L9001.2300 22-26 mmol/L Normal HCO3 23.4 ISTAT LAB L9001.2400 -2 to +2 mmol/L Normal BE ISTAT -1 LAB L9001.2415 mmol/L Normal TOTAL CO2 24 ISTAT LAB L9001.2425 95-99 % Low SO2 ISTAT 94 Performed By: #### L9000.0800 #### [facility] Laboratory Point of Care [address] [facility] [place] [address] PROGRESS Observed: 06/26/2018 Status: COMPLETED Source: [place] 2:58 PM [facility] [place] REPOSITORY HNO ID: [id number] Author: Libia Billingsley (Filiberto) Francisco Service: (none) Author Type: Physician Teaching Associate Type: Progress Notes Filed: 06/26/2018 4:33 PM Note Text: 82 year old male with hx ASHD s/p angiopplasty, BPH, DM2, HTN, HLD, GERD, DANYELL, Hypothyroidisim, lumbar radiculopathy, kidney sotnes c/o pain with urination x 2-3 days. Feeling worse hurts way inside (not back). No fever of chills. No nausea or vomiting. Not hematuria. Urine stream is fair. Supposed to have heart cath on Monday. Worried about kidney stone but states no like prior stones. 06/13/18 BUN 16, creat 1.29, glucose 97 03/01/18 hgba1c 6.4% HISTORIES FAMILY HISTORY Problem Relation Age of Onset - Cancer Father BRAIN - Heart Mother - Heart Brother - Breast Cancer Sister - Diabetes Sister - Colon Cancer Mother - other (testicular cancer [Other]) Son PAST MEDICAL HISTORY Diagnosis Date - Abdominal pain, unspecified site - Atherosclerotic heart disease of [place] coronary artery without angina pectoris 12/10/2013 - [...] - History of left heart catheterization 06/30/2015 [facility] - see scanned documents - Hyperlipidemia LDL [...] Laterality Date - COLONOSCOP W/ OR W/O [facility] SPEC 07/30/03 Colonoscopy - COLONOSCOP W/ OR W/O [facility] SPEC 10/28/08 - COLONOSCOP W/ OR W/O [facility] SPEC 01/29/15 Colonoscopy - ECHO 06/24/2015 [facility] - see scanned documents - EGD W/O [...] 6 Occupational History Occupation Employer Comment [employer]IRED [employer]IRED [employer] Social History Main Topics Smoking status: Former [...] Use of Insulin (Hcc) Current Outpatient Prescriptions: meloxicam (MOBIC) 7.5 mg tablet Take 1 tablet by mouth once daily. Take with food. Per Dr. Irwin walsh Disp: Rfl: pantoprazole DR (PROTONIX) 40 mg tablet TAKE ONE TABLET BY MOUTH ONCE DAILY Disp: 90 tablet Rfl: 1 levothyroxine (SYNTHROID) 50 mcg tablet Take 1 tablet by mouth once daily. Disp: 90 tablet Rfl: 4 pravastatin (PRAVACHOL) 20 mg tablet Take 1 tablet by mouth once daily. Disp: Rfl: 0 losartan (COZAAR) 50 mg tablet Take 1 tablet by mouth once daily. Disp: Rfl: 0 insulin 70/30 NPH/regular units/mL (HUMULIN 70/30, NOVOLIN 70/30) 52 units SQ ac breakfast and 38 units SQ ac supper (Patient taking differently: 50 units SQ ac breakfast and 40 units SQ ac supper ) Disp: Rfl: 0 furosemide (LASIX) 40 mg tablet Take 40 mg by mouth once daily. Disp: Rfl: finasteride (PROSCAR) 5 mg tablet Take 5 mg by mouth once daily. Disp: Rfl: clopidogrel (PLAVIX) 75 mg tablet Take 75 mg by mouth once daily. Disp: Rfl: aspirin, enteric coated (ASPIRIN, ENTERIC COATED) 81 mg EC tablet Take 81 mg by mouth once daily. Disp: Rfl: metFORMIN (GLUCOPHAGE) 500 mg tablet Take 2 tablets by mouth twice daily with meals. Disp: Rfl: Cholecalciferol, Vitamin D3, (VITAMIN D-3) 2,000 unit cap Take 1 tablet by mouth once daily. Disp: Rfl: tamsulosin ER (FLOMAX) 0.4 mg cp24 Take 1 capsule by mouth daily at bedtime. (Patient not taking: Reported on 03/26/2018 ) Disp: 30 capsule Rfl: 1 No current facility-administered medications for this visit. BP CONTROLLED (<130/80) due on [birth year]20/1953 DTAP,TDAP,TD(1 - Tdap) due on 11/18/2005 URINE ALBUMIN:CREATININE RATIO due on 06/30/2017 SERUM CREATININE due on 03/29/2018 EXAM: BP 124/70 Pulse 100 Temp 37.1 ?C (98.7 ?F) (Tympanic) Resp 24 Wt 110.2 kg (243 lb) BMI 43.05 kg/m? Pleasant obese man in no acute distress. Alert and oriented all spheres. Normal affect and cognition. Speech normal. No deficits to learning or comprehension. Skin warm, dry, pink to lips and nailbeds. Normal turgor. Respirations regular and unlabored. HEENT WNL. TM's clear. Nose and oropharynx free from injection or lesion. No cervical lymph nodes. Thyroid non-tender, no masses Chest CTA. HRRR without murmur or gallop. Abd: rounded, bowel sounds active. No pulsatile masses. Rounded, tender in right lower/ suprapubic. No rebound, guarding, or peritoneal signs. No masses. No organomegaly. Lester's punch: negative. No flank pain. No inguinal or axillary lymphadenopathy. Extrem: no clubbing, cyanosis, edema. Extremities are warm and pink with prompt capillary refill. Urine: blood moderate, protein 30, leuk large, nitrite negative, otherwise ASSESSMENT/PLAN: 1. Flank pain - ICD9: 789.09, ICD10: R10.9 (primary diagnosis) - UTI - UA DIP B/O 2. Urinary tract infection with hematuria, site unspecified - ICD9: 599.0, 599.70, ICD10: N39.0, R31.9 acute - Patient education for prevention given Cipro, Pyridium - URINE CULTURE 3. Chronic renal insufficiency, stage 3 (moderate) (HCC) - ICD9: 585.3, ICD10: N18.3 stable 4. Controlled type 2 diabetes mellitus with stage 3 chronic kidney disease, without long-term current use of insulin (HCC) - ICD9: 250.40, 585.3, ICD10: E11.22, N18.3 Controlled. - Continue current medications Fever, vomiting, confusion severe pain: instructed to go to FABIÁN Singh PA-C CNOV Observed: 06/26/2018 Status: COMPLETED Source: [place] 2:00 PM [facility] REPOSITORY Office Visit (FAMPWS) OLMAN REDDY ([id number]) 1935 M Date Time Provider Department 06/26/18 2:00 PM Libia SINGH) FAMPWS During your visit today, we recorded the following information about you: Temperature Pulse Respiration Blood pressure 98.7 degrees 100/minute 24/minute 124/70 Weight 110.2 kg M Carole Singh PA-C 06/26/2018 4:33 PM Signed 82 year old male with hx ASHD s/p angiopplasty, BPH, DM2, HTN, HLD, GERD, DANYELL, Hypothyroidisim, lumbar radiculopathy, kidney sotnes c/o pain with urination x 2-3 days. Feeling worse hurts way inside (not back). No fever of chills. No nausea or vomiting. Not hematuria. Urine stream is fair. Supposed to have heart cath on Monday. Worried about kidney stone but states no like prior stones. 06/13/18 BUN 16, creat 1.29, glucose 97 03/01/18 hgba1c 6.4% HISTORIES FAMILY HISTORY Problem Relation Age of Onset - Cancer Father BRAIN - Heart Mother - Heart Brother - Breast Cancer Sister - Diabetes Sister - Colon Cancer Mother - other (testicular cancer [Other]) Son PAST MEDICAL HISTORY Diagnosis Date - Abdominal pain, unspecified site - Atherosclerotic heart disease of [place] coronary artery without angina pectoris 12/10/2013 - [...] - History of left heart catheterization 06/30/2015 [facility] - see scanned documents - Hyperlipidemia LDL [...] Laterality Date - COLONOSCOP W/ OR W/O [facility] SPEC 07/30/03 Colonoscopy - COLONOSCOP W/ OR W/O [facility] SPEC 10/28/08 - COLONOSCOP W/ OR W/O [facility] SPEC 01/29/15 Colonoscopy - ECHO 06/24/2015 [facility] - see scanned documents - EGD W/O [...] 6 Occupational History Occupation Employer Comment [employer]IRED [employer] Social History Main Topics Smoking status: Former [...] Use of Insulin (Hcc) Current Outpatient Prescriptions: meloxicam (MOBIC) 7.5 mg tablet Take 1 tablet by mouth once daily. Take with food. Per Dr. Irwin walsh Disp: Rfl: pantoprazole DR (PROTONIX) 40 mg tablet TAKE ONE TABLET BY MOUTH ONCE DAILY Disp: 90 tablet Rfl: 1 levothyroxine (SYNTHROID) 50 mcg tablet Take 1 tablet by mouth once daily. Disp: 90 tablet Rfl: 4 pravastatin (PRAVACHOL) 20 mg tablet Take 1 tablet by mouth once daily. Disp: Rfl: 0 losartan (COZAAR) 50 mg tablet Take 1 tablet by mouth once daily. Disp: Rfl: 0 insulin 70/30 NPH/regular units/mL (HUMULIN 70/30, NOVOLIN 70/30) 52 units SQ ac breakfast and 38 units SQ ac supper (Patient taking differently: 50 units SQ ac breakfast and 40 units SQ ac supper ) Disp: Rfl: 0 furosemide (LASIX) 40 mg tablet Take 40 mg by mouth once daily. Disp: Rfl: finasteride (PROSCAR) 5 mg tablet Take 5 mg by mouth once daily. Disp: Rfl: clopidogrel (PLAVIX) 75 mg tablet Take 75 mg by mouth once daily. Disp: Rfl: aspirin, enteric coated (ASPIRIN, ENTERIC COATED) 81 mg EC tablet Take 81 mg by mouth once daily. Disp: Rfl: metFORMIN (GLUCOPHAGE) 500 mg tablet Take 2 tablets by mouth twice daily with meals. Disp: Rfl: Cholecalciferol, Vitamin D3, (VITAMIN D-3) 2,000 unit cap Take 1 tablet by mouth once daily. Disp: Rfl: tamsulosin ER (FLOMAX) 0.4 mg cp24 Take 1 capsule by mouth daily at bedtime. (Patient not taking: Reported on 03/26/2018 ) Disp: 30 capsule Rfl: 1 No current facility-administered medications for this visit. BP CONTROLLED (<130/80) due on 08/20/1955 DTAP,TDAP,TD(1 - Tdap) due on 11/18/2005 URINE ALBUMIN:CREATININE RATIO due on 06/30/2017 SERUM CREATININE due on 03/29/2018 EXAM: BP 124/70 Pulse 100 Temp 37.1 ?C (98.7 ?F) (Tympanic) Resp 24 Wt 110.2 kg (243 lb) BMI 43.05 kg/m? Pleasant obese man in no acute distress. Alert and oriented all spheres. Normal affect and cognition. Speech normal. No deficits to learning or comprehension. Skin warm, dry, pink to lips and nailbeds. Normal turgor. Respirations regular and unlabored. HEENT WNL. TM's clear. Nose and oropharynx free from injection or lesion. No cervical lymph nodes. Thyroid non-tender, no masses Chest CTA. HRRR without murmur or gallop. Abd: rounded, bowel sounds active. No pulsatile masses. Rounded, tender in right lower/ suprapubic. No rebound, guarding, or peritoneal signs. No masses. No organomegaly. Lester's punch: negative. No flank pain. No inguinal or axillary lymphadenopathy. Extrem: no clubbing, cyanosis, edema. Extremities are warm and pink with prompt capillary refill. Urine: blood moderate, protein 30, leuk large, nitrite negative, otherwise ASSESSMENT/PLAN: 1. Flank pain - ICD9: 789.09, ICD10: R10.9 (primary diagnosis) - UTI - UA DIP B/O 2. Urinary tract infection with hematuria, site unspecified - ICD9: 599.0, 599.70, ICD10: N39.0, R31.9 acute - Patient education for prevention given Cipro, Pyridium - URINE CULTURE 3. Chronic renal insufficiency, stage 3 (moderate) ([facility]) - ICD9: 585.3, ICD10: N18.3 stable 4. Controlled type 2 diabetes mellitus with stage 3 chronic kidney disease, without long-term current use of insulin ([facility]) - ICD9: 250.40, 585.3, ICD10: E11.22, N18.3 Controlled. - Continue current medications Fever, vomiting, confusion severe pain: instructed to go to ED FILIBERTO Keller PA-C 06/26/2018 3:09 PM Signed Force fluids with water and juices (not caffeine) to 2000cc per day until symptoms improve. Take Cipro as directed per prescription Pyridium is a urinary anesthetic which should decrease the discomfort over the next few days. It will turn the urine a bright orange or yellow color, and it will permanently stain clothing if you drip. If you should breakout in a rash, stop the medicine and call the office. Any antibiotic has the potential to cause diarrhea due to alteration in the normal bacterial demetri of the gut. This can be reduced by eating yogurt with active cultures daily while on the medication. If diarrhea becomes severe (watery, large volumes or more than 3-4/day) call the office. While on antibiotics women may experience yeast vaginitis due to alteration in the vaginal demetri. Symptoms include vaginal itching, irritation, and often a clumpy white discharge. If this occurs, there are several effective over the counter remedies available, including one-dose treatments. If these are unsuccessful, call the office. Antibiotics may interfere with control. If you are on oral contraceptives, use another form of protection (condoms, foams, jellies, diaphragm) throught the end of whatever pill pack you are on when you finish the antibiotic. Referring Provider: SELF [200] Allergies As of Date: 06/26/2018 Noted Allergy Reaction ACTOS (PIOGLITAZONE HCL) 2006 Comments: abdomenal pain Date Reviewed: 06/26/2018 Reviewed by: Eri Matamoros LPN - Fully Assessed Reason for Visit: Pain [78] Cmt: in groin x 2 days Primary Visit Diagnosis:Flank pain [R10.9] Other Visit Diagnoses:Urinary tract infection with hematuria, site unspecified [N39.0, R31.9] Chronic renal insufficiency, stage 3 (moderate) ([facility]) [N18.3] Controlled type 2 diabetes mellitus with stage 3 chronic kidney disease, without long- term current use of insulin (HCC) [E11.22, N18.3] Order(s):UA DIP B/O [7934055] Order #: [id number] UA DIP, URINE (POC) [[id number]] Order #: [id number]. #:[id number] URINE CULTURE [SQURCUL] Order #: [id number] ciprofloxacin HCl (CIPRO) 500 mg tabletTake 1 tablet by mouth twice daily.Disp: 20 tabletRfl: 0 phenazopyridine (PYRIDIUM, GERIDIUM) 200 mg tabletTake 1 tablet by mouth three times daily as needed for up to 2 days.Disp: 6 tabletRfl: 0 Prescriptions as of 06/26/2018 Sig: MELOXICAM 7.5 MG TABLET Take 1 tablet by mouth once d* PANTOPRAZOLE 40 MG TABLET,DEL* TAKE ONE TABLET [...] Take 1 tablet by mouth once d* CIPROFLOXACIN 500 MG TABLET Take 1 tablet by mouth twice * PHENAZOPYRIDINE 200 MG TABLET Take 1 tablet by mouth three * TAMSULOSIN 0.4 MG CAPSULE Take 1 capsule by mouth daily* Patient not taking: Reported on 03/26/2018 Problem List As Of Date 06/26/2018 Noted Resolved ESOPHAGEAL REFLUX [K21.9] Asthma [J45.909] [...] *INVALID FOR* Other instructions from your clinician: Force fluids with water and juices (not caffeine) to 2000cc per day until symptoms improve. Take Cipro as directed per prescription Pyridium is a urinary anesthetic which should decrease the discomfort over the next few days. It will turn the urine a bright orange or yellow color, and it will permanently stain clothing if you drip. If you should breakout in a rash, stop the medicine and call the office. Any antibiotic has the potential to cause diarrhea due to alteration in the normal bacterial demetri of the gut. This can be reduced by eating yogurt with active cultures daily while on the medication. If diarrhea becomes severe (watery, large volumes or more than 3-4/day) call the office. While on antibiotics women may experience yeast vaginitis due to alteration in the vaginal demetri. Symptoms include vaginal itching, irritation, and often a clumpy white discharge. If this occurs, there are several effective over the counter remedies available, including one-dose treatments. If these are unsuccessful, call the office. Antibiotics may interfere with control. If you are on oral contraceptives, use another form of protection (condoms, foams, jellies, diaphragm) throught the end of whatever pill pack you are on when you finish the antibiotic. Prescriptions ordered this encounter Disp Refills Start End CIPROFLOXACIN 500 MG TABLET 20 t* 0 06/26/2018 Route: ORAL Sig: Take 1 tablet by mouth twice daily. PHENAZOPYRIDINE 200 MG TABLET 6 ta* 0 06/26/2018 06/28/2018 Route: ORAL Sig: Take 1 tablet by mouth three times daily as needed for up to 2 days. Encounter Status:Closed by Libia SINGH PA-C on 06/26/18 Observed: 06/26/2018 Status: F Source: [place] URINE CULTURE 4:50 AM [facility] [place] REPOSITORY Sp. Request/Comment: - Specimen received in preservative Culture Result - >=100,000 CFU/ml Escherichia coli --> ABNORMAL ALERT ORGANISM: Escherichia coli METHOD: Minimum inhibitory concentration(Vitek) Antibiotic Interp YOLANDA Status Ampicillin SUSCEPTIBLE 8 F Gentamicin SUSCEPTIBLE <=1 F Trimeth sulfameth SUSCEPTIBLE <=20 F Cefazolin SUSCEPTIBLE <=4 F CLSI breakpoints for therapy of uncomplicated UTI's due to E.coli, K.pneumoniae, and P.mirabilis were applied and may be used to predict the activity of oral agents(cefaclor, cefdinir, cefpodoxime, cefp rozil, cefuroxime, cephalexin, loracarbef). Ciprofloxacin SUSCEPTIBLE <=0.25 F Nitrofurantoin SUSCEPTIBLE <=16 F Cefepime SUSCEPTIBLE <=1 F Piperacillin/Tazobac SUSCEPTIBLE <=4 F Ampicillin Sulbact SUSCEPTIBLE <=2 F Ceftriaxone SUSCEPTIBLE <=1 F Meropenem SUSCEPTIBLE <=0.25 F Ertapenem SUSCEPTIBLE <=0.5 F Performed By: #### URCUL #### [facility] [address] [place], [place] [address] CARDIOLOGY VISIT Observed: 06/25/2018 Status: F Source: [place] REPORT 6:44 AM [facility] REPOSITORY [facility] [place] [id number] [facility] [place] [address] OFFICE VISIT Date of Service: 06/13/18 MR#: [id number] Acct: [id number] Name: OLMAN REDDY Rep #: [id number] : 1935 Provider: Audelia Espinoza Age/Sex: 82/M Location: [facility] [place] Status: Signed HPI HPI Chief Complaint: Follow up Details: OLMAN REDDY, is a 82 M who presents to the office today for a follow up on his SOB. He has a history of coronary artery disease status post angioplasty and stenting of his left anterior descending artery in 2015. He also has a history of hypertension and hyperlipidemia. In 2015 he underwent a cardiac catheterization in June as well as February which demonstrated widely patent stents and no obstructive coronary disease. We had added Norvasc last month for his continued SOB that he felt was related to his angina. We had started him on Imdur and this helped with his angina. He has not needed to use any as needed NTG. However he still complains of being significantly short of breath. He states that he is short of breath with minimal activity. It is not constant. He also notes that he is orthopneic however he was able to lay flat to have a CAT scan done that was ordered by pulmonary. He does sleep with 2 pillows. He is able to talk without being short of breath however when sitting in the office he is tachypneic. He does not have any lower extremity edema. He does complain of nausea and being unable to eat when he is a short of breath. 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: No Accompanied by: Is patient in pain?: No Allergies pioglitazone HCl [From GO-SIM] Adverse Reaction (Verified 06/13/18 09:40) Upset Stomach Medications Levothyroxine [Synthroid] 50 mcg PO DAILY 01/05/14 [History Confirmed 06/13/18] Metformin HCl [Glucophage] 1,000 mg PO BIDCM 01/05/14 [History Confirmed 06/13/18] Pravastatin [Pravachol] 20 mg PO DAILY 01/05/14 [History Confirmed 06/13/18] Cholecalciferol (Vitamin D3) [Vitamin D3] 5,000 unit PO DAILY 06/29/15 [History Confirmed 06/13/18] Finasteride [Proscar] 5 mg PO DAILY 06/29/15 [History Confirmed 06/13/18] Insulin NPH/Reg 70/30 [Novolin 70/30] 36 units SC DINNER 06/29/15 [History Confirmed 06/13/18] Insulin NPH/Reg 70/30 [Novolin 70/30] 50 units SC BREAKFAST 06/29/15 [History Confirmed 06/13/18] Pantoprazole Sodium [Protonix] 40 mg PO DAILY 06/29/15 [History Confirmed 06/13/18] Aspirin [Adult Low Dose Aspirin EC] 81 mg PO DAILY 07/24/15 [History Confirmed 06/13/18] clopidogrel 75 mg tablet 75 mg PO DAILY #90 tab 02/27/18 [Rx Confirmed 06/13/18] furosemide 40 mg tablet 40 mg PO DAILY #90 tab 09/06/17 [Rx Confirmed 06/13/18] losartan 50 mg tablet 50 mg PO QDAY #90 tab 09/06/17 [Rx Confirmed 06/13/18] isosorbide mononitrate ER 30 mg tablet,extended release 24 hr 30 mg PO DAILY #90 tab 04/19/18 [Rx Confirmed 06/13/18] amlodipine 5 mg tablet 5 mg PO DAILY #30 tab 05/14/18 [Rx Confirmed 06/13/18] albuterol sulfate HFA 90 mcg/actuation aerosol inhaler 2 puff INHALATION Q4H PRN #1 device 05/29/18 [Rx Confirmed 06/13/18] PFSH Medical History Diabetes mellitus (Chronic) BMI 40.0-44.9, adult (Chronic) Dyspnea (Chronic) Cough (Chronic) Shortness of breath (Chronic) Obesity (Chronic) Upper respiratory infection (Resolved) Right flank pain (Resolved) Atherosclerotic heart disease of [place] coronary artery without angina pectoris (Chronic) 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 (Chronic) 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) Palpitations (Chronic) Nonrheumatic [...] home: Yes ROS Const Const: Positive for weakness and fatigue; negative for fever(s) or headache(s) Eyes Eyes: Negative for blind spots, loss of peripheral vision or transient loss of vision ENT ENT: Negative for headache(s), dizziness, tinnitus or Nosebleed/epistaxis Cardio Chest Pain: No Palpitations: No Edema: None Muscle aches with walking: None Resp Respiratory: Positive for SOB with activity, SOB at rest and SOB orthopnea\SOB lying down; negative for Cough GI GI: Positive for nausea; negative vomiting, heartburn or vomiting blood/hematemesis : Negative for hematuria Musc Musc: Positive for muscle weakness; negative for muscle aches/ myalgia Neuro Neuro: Positive for weakness; negative for headache(s), dizziness, near syncope, syncope, lightheadedness or orthostatic symptoms J Luis Hematologic/Lymphatic: Negative for easy bleeding Endo Endo: Positive for fatigue Cardiology Exam Const Appearance: cooperative, well developed, well groomed, anxious and other (Tachypneic) Nutritional Appearance: well nourished and obese Orientation: alert, awake and oriented x3 Head [...] of the chest, symmetric chest movement and tachypneic Auscultation: Bilateral: Diminished Lung Sounds (Crackles bases) Cardio Palpation: normal PMI Rate: regular rate Rhythm: regular rhythm Heart sounds: S1 normal, S2 normal and normal, physiologic split S2; negative rub, gallop or murmur GI GI: normal to inspection, soft, no hepatosplenomegaly, bowel sounds present and obese Neuro General: alert, awake, oriented x3, no [...] Psychological: normal affect Assessment AND Plan 1. Shortness of breath R06.02 Plan - NEERAJ Bowman Patient was worked up completely for pulmonary for his shortness of breath. Echocardiogram was unable to quantify pulmonary hypertension. They are requesting a right heart catheterization. With patient's symptoms and patient's concern for coronary artery disease will do a left heart catheterization at same time. Patient's symptoms have not gotten any better with maximum medical therapy. Orders Orders: 2. Atherosclerosis of [place] coronary artery of [place] heart without angina pectoris I25.10 Plan - NEERAJ Bowman Patient does have symptoms significant short of breath. Pulmonary is requesting a right heart cath, if we obtained a stress test with his continued SOB and patients concern that his symptoms are related to his CAD, feel that even if we had a negative stress test that we would pursue a left cath cath. So will obtian a left and right heart cath. He will continue with maximal medical therapy. Orders Orders: 3. Hypertension I10 Plan - NEERAJ Bowman Controlled on current medications. Will not make any adjustments. Orders Orders: 4. Pure hypercholesterolemia E78.00 Plan - NEERAJ Bowman Patient will continue with current low-dose statin. Plan Detail Other Orders Orders: Additional Comments - NEERAJ Bowman Thank you for allowing us to participate in patient's plan of care, if you have any questions please do not hesitate to call. This note was generated using a voice recognition system and there may be incorrect words, spelling or punctuation errors that were not noted when reviewing the office note prior to saving. Follow Up 06/18/18 (based on cath) Coding Level of Care Code Off vis,est,level 4 Diagnoses Shortness of breath R06.02 Dyspnea type: shortness of breath Atherosclerosis of [place] coronary artery of [place] heart without angina pectoris I25.10 [place] vs. transplanted heart: [place] heart Hypertension I10 Hypertension type: essential hypertension Pure hypercholesterolemia E78.00 Hyperlipidemia type: pure hypercholesterolemia Coding Level of Care Code Off vis,est,level 4 Diagnoses Shortness of breath R06.02 Dyspnea type: shortness of breath Atherosclerosis of [place] coronary artery of [place] heart without angina pectoris I25.10 [place] vs. transplanted heart: [place] heart Hypertension I10 Hypertension type: essential hypertension Pure hypercholesterolemia E78.00 Hyperlipidemia type: pure hypercholesterolemia Supplemental Info Supplemental Information Heart cath from 2016: Angiographically normal left main coronary artery. Left anterior descending artery with previously placed stent, which is patent. Left circumflex artery, which is a codominant, large with no significant stenosis. Dominant right coronary artery with no high-grade stenosis. Echocardiogram in 2018 demonstrated: Left ventricular systolic function is normal. The estimated ejection fraction is 55 %. The left atrium is mildly enlarged. Trivial mitral valve insufficiency. Trivial tricuspid valve insufficiency. Mild focal aortic valve calcification. Unable to estimate RV systolic pressure/pulmonary artery pressure due to technically difficult study. Diastolic function is indeterminate. CT of the chest demonstrated no central segmental pulmonary embolism, no thoracic aortic dissection, stable hiatal hernia, stable hepatic cyst, status post CABG, left thoracotomy, stable pleural and parenchymal fibrotic changes 6 minute walk test in 2018 demonstrated: The patient ambulated 944 feet over the course of 6 minutes beginning on room air without assistive devices or breaks. Pretesting oxygen saturation was noted to be 95% on room air. With ambulation, the malachi oxygen saturation was 92%. There was no significant exertional oxygen desaturation. The patient did become progressively tachycardic with exertion, suggesting a cardiac limitation to exercise tolerance. BNP in 2018 was 45. Labs LDL Cholesterol 70 mg/dL (0-130) 04/09/18 HDL Cholesterol 35 mg/dL (40-) L 04/09/18 Triglycerides 279 mg/dL (-199) H 04/09/18 VLDL Cholesterol 56 mg/dL (5-40) H 04/09/18 Diagnostics Electrocardiogram 06/13/18 Echocardiogram 03/13/18 Chest X-Ray 05/25/18 Pulmonary Pulmonary Exercise Test 06/08/18 06/18/18 1617 <Electronically signed by Audelia PICKARD> Date Audelia PICKARD 06/25/18 0644<Electronically signed by David Ashton MD> Cosigner Signature: Date (if applicable) David Ashton MD CC: Nathanael Jones III, MD CBC W/DIFF, AUTOMATED Collected: 06/13/2018 Status: F Source: [place] 10:49 AM [facility] REPOSITORY TYPE CODE TESTS RESULT OUT OF RANGE REFERENCE UNITS LAB L100.1000 4.4-11.0 K/mm3 Normal WBC 10.3 LAB L100.1200 4.6-6.2 M/mm3 Low RBC 4.33 LAB L100.1300 13.0-16.5 g/dl Low HGB 12.8 LAB L100.1400 40-54 % Low HCT 39.9 LAB L100.1500 80-94 fL Normal MCV 92.1 LAB L100.1600 27.0-32.0 pg Normal MCH 29.6 LAB L100.1700 32-36 g/gl Normal MCHC 32.1 LAB L100.1810 11.6-14.6 % Normal RDW CV 14.5 LAB L100.1820 35.1-43.9 fl High RDW SD 48.7 LAB L100.1900 150-450 K/mm3 Normal PLT 224 LAB L100.2000 6.2-12.0 fl Normal MPV 9.1 LAB L100.2100 47-70 % High NEUT% 79.7 LAB L100.2200 19-41 % Low LY% 9.6 LAB L100.2300 0-10 % Normal MONO% 9.5 LAB L100.2400 0-5 % Normal EO% 0.8 LAB L100.2500 0-1 % Normal BASO% 0.3 LAB L100.2550 0.0-0.9 % Normal IM GRAN % 0.100 Result Comment: IG% - Immature Granulocytes (promyelocytes, myelocytes and metamyelocytes) > 1% indicates that a LEFT SHIFT is Present. LAB L100.2620 2.0-7.7 X10 3/uL High Absolute Neut 8.2 LAB L100.2720 0.83-4.51 X10 3/ul Normal Absolute Lymph 0.99 Performed By: #### L100.0100 #### [facility] [address] [place], [address] PROTHROMBIN TIME W/INR Collected: 06/13/2018 Status: F Source: [place] 10:49 AM [facility] REPOSITORY TYPE CODE TESTS RESULT OUT OF RANGE REFERENCE UNITS LAB L300.4150 11.7-14.9 SECONDS Normal PROTIME 14.4 LAB L300.4200 Normal INR 1.1 Performed By: #### L300.3900, L300.4310 #### [facility] [facility] [address] [place], [address] PARTIAL THROMBOPLAST Collected: 06/13/2018 Status: F Source: [place] TIME 10:49 AM [facility] REPOSITORY TYPE CODE TESTS RESULT OUT OF RANGE REFERENCE UNITS LAB L300.4310 24.1-36.2 Seconds Normal PTT 28.0 Performed By: #### L300.3900, L300.4310 #### [facility] [address] [place], [address] BASIC METABOLIC Collected: 06/13/2018 Status: F Source: [place] PROFILE (BMP) 10:49 AM [facility] REPOSITORY TYPE CODE TESTS RESULT OUT OF RANGE REFERENCE UNITS LAB L501.0100 74-106 mg/dL Normal GLU 97 Result Comment: Please note revised GLUCOSE reference range effective 2017. LAB L501.1000 7-18 mg/dL Normal BUN 16 LAB L501.1100 0.70-1.30 mg/dL Normal CREAT,SERUM 1.29 Result Comment: The validity of the calculated GFR AND GFRAA in patients over 70 years has not been determined. Clinical correlation is essential. LAB L501.1110 >60 mL/min Low EST GFR 57 Result Comment: Non- GFR Calc LAB L501.1115 >60 mL/min Normal EST GFR - AA 69 Result Comment: GFR Calc LAB L501.1300 10-20 RATIO Normal BUN/CRE 12.4 LAB L501.2200 8.5-10.1 mg/dL CA Normal 9.5 LAB L501.5300 136-145 mmol/L NA Normal 139 LAB L501.5600 3.5-5.1 mmol/L K Normal 4.0 LAB L501.5900 98-107 mmol/L CL Normal 103 LAB L501.6100 21.0-32.0 mmol/L Normal CO2 24.0 LAB L501.6200 5-15 Normal GAP 12 Performed By: #### L500.2500 #### [facility] [address] [place], [address] 12 LEAD EKG PERFORMED Observed: 06/13/2018 Status: F Source: [place] BY [facility] 10:08 AM [facility] REPOSITORY [facility] [address] [place] [address] 12 Lead EKG performed by [facility] 06/13/181003 MR#: [id number] Acct: [id number] Name: OLMAN RDEDY Rep #: [id number] : 1935 82 From: Audelia PICKARD Attending Dr: Audelia Espinoza Status: DEP AMB Ordering Dr: Audelia Espinoza Date: 06/13/18 Location: [facility] Sex: M C Admitted: [facility]/12 Lead EKG performed by [facility] ECG Report Interpretation Sinus Rhythm - frequent PAC s # PACs = 3.-Right bundle branch block with left axis -bifascicular block. ABNORMAL Electronically signed on 07/10/2018 at 16:26 by David Ashton Software Version 8610 07/10/18 1635 Date Audelia PICKARD CC: Nathanael Jones III, MD Date Dictated: 06/13/181003 Date Transcribed: 06/13/181003 Ic Designer Standard Cells: CAROLINE Signed 6 MINUTE WALK TEST Observed: 06/08/2018 Status: F Source: [place] 10:30 AM [facility] REPOSITORY [facility] Pulmonary Services/Neurology [address] [place] [address] MR#: [id number] Acct: [id number] Name: OLMAN REDDY Rep #: [id number] : 1935 82 From: Americo Nazario DO Referring Dr: Lela Sherman MANAGER POST Date: Ordering Dr: Elsa Graham Location: PSN PSN 6 Minute Walk Test - 6 Minute Walk Test 6 Minute Walk Test: 6 Minute Walk Test PSN:6-Minute Walk Test Start: 06/07/18 11:31 Freq: Status: Active Protocol: RESP.6MINW Document 06/07/18 11:32 JLA (Rec: 06/07/18 11:34 JLA [id number]) 6 Minute Walk Test Date Performed 06/07/18 Time Performed 11:00 Height 5 ft 4 in Weight: 245 lb Weight in Pounds 245.[address]: Lela Sherman Assistive device used: None Pre-test Oxygen Delivery Method Room Air Pulse Ox (%) 95 Pulse Rate (60-100 beats/min) 83 Dyspnea Janae Scale (0-10) 4 Exertion Janae Scale (6-20) 6 1st minute Oxygen Delivery Method Room Air Pulse Ox (%) 96 Pulse Rate (60-100 beats/min) 99 2nd minute Oxygen Delivery Method Room Air Pulse Ox (%) 92 Pulse Rate (60-100 beats/min) 102 H 3rd minute Oxygen Delivery Method Room Air Pulse Ox (%) 94 Pulse Rate (60-100 beats/min) 108 H 4th minute Oxygen Delivery Method Room Air Pulse Ox (%) 95 Pulse Rate (60-100 beats/min) 117 H Reported Symptoms Increased Work of Breathing 5th minute Oxygen Delivery Method Room Air Pulse Ox (%) 95 Pulse Rate (60-100 beats/min) 120 H Reported Symptoms Increased Work of Breathing 6th minute Oxygen Delivery Method Room Air Pulse Ox (%) 94 Pulse Rate (60-100 beats/min) 122 H Dyspnea Janae Scale (0-10) 7 Exertion Janae Scale (6-20) 14 Reported Symptoms Increased Work of Breathing Post-test Oxygen Delivery Method Room Air Pulse Ox (%) 98 Pulse Rate (60-100 beats/min) 83 Full Laps Walked 16 Partial Lap, Number of Tiles Walked 0 Total Distance Walked (ft) 944 - Interpretation Interpretation: The patient ambulated 944 feet over the course of 6 minutes beginning on room air without assistive devices or breaks. Pretesting oxygen saturation was noted to be 95% on room air. With ambulation, the malachi oxygen saturation was 92%. There was no significant exertional oxygen desaturation. The patient did become progressively tachycardic with exertion, suggesting a cardiac limitation to exercise tolerance. - Recommendations Recommendations: There is no indication for the use of supplemental oxygen at this time. 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/10/2013 - [...] - History of left heart catheterization 06/30/2015 [facility] - see scanned documents - Hyperlipidemia LDL [...] Laterality Date - COLONOSCOP W/ OR W/O [facility] SPEC 07/30/03 Colonoscopy - COLONOSCOP W/ OR W/O [facility] SPEC 10/28/08 - COLONOSCOP W/ OR W/O [facility] SPEC 01/29/15 Colonoscopy - ECHO 06/24/2015 [facility] - see scanned documents - EGD W/O [...] 6 Occupational History Occupation Employer Comment RETIRED [employer] Social History Main Topics Smoking status: Former [...] E11.22, N18.3 F/u 1 week as needed Libia Singh PA-C CNOV Observed: 06/05/2018 Status: COMPLETED Source: [place] 11:00 AM [facility] REPOSITORY Office Visit (FAMPWS) OLMAN REDDY ([id number]) 1935 M Date Time Provider Department 06/05/18 11:00 AM [facility] During [facility] today, we recorded the following information about you: Temperature Pulse Respiration Blood pressure 97 degrees 80/minute 28/minute 110/80 Weight 110.7 kg Libia Singh PA-C 06/05/2018 12:39 PM Signed 82 [...] unspecified site - Atherosclerotic heart disease of [place] coronary artery without angina pectoris 12/10/2013 - [...] - History of left heart catheterization 06/30/2015 [facility] - see scanned documents - Hyperlipidemia LDL [...] Laterality Date - COLONOSCOP W/ OR W/O [facility] SPEC 07/30/03 Colonoscopy - COLONOSCOP W/ OR W/O [facility] SPEC 10/28/08 - COLONOSCOP W/ OR W/O [facility] SPEC 01/29/15 Colonoscopy - ECHO 06/24/2015 [facility] - see scanned documents - EGD W/O [...] 6 Occupational History Occupation Employer Comment RETIRED [employer] RETIRED [employer] Social History Main Topics Smoking status: Former [...] VISIT REPORT Observed: 06/05/2018 Status: F Source: [place] 10:56 AM [facility] REPOSITORY [facility] of [address] [place] [address] OFFICE VISIT Date of Service: 06/05/18 MR#: [id number] Acct: [id number] Name: OLMAN REDDY Rep #: [id number] : 1935 Provider: Lela Sherman Age/Sex: 82/M Location: [facility] Status: Signed Assessment AND Plan 1. Shortness [...] maintenance inhalers. He has not tried any oafq-jmk-kuiijsc medications to treat his symptoms. 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 [place], [place], [address] BNP,B-TYPE NATRIURETIC Collected: 06/05/2018 Status: F Source: [place] PEPTIDE 10:26 AM [facility] REPOSITORY TYPE CODE TESTS RESULT OUT OF RANGE REFERENCE UNITS LAB L503.6620 0-100 pg/mL Normal B-TYPE 25.4 LUIZA PEP Performed By: #### L503.6620 #### [facility] [address] [place], [place], [address] CTA CHEST W/WO Observed: 06/01/2018 Status: F Source: [place] CONTRAST 1:28 PM [facility] REPOSITORY [facility] Imaging Services [address] [place] [address] CTA Chest W/WO Contrast MR#: [id number] Acct: [id number] Name: OLMAN REDDY Rep #: [id number] : 1935 M 82 From: Rakesh Rolle MD PCP: Nathanael Jones III, MD Status: REG CLI Study: CTA Chest W/WO Contrast Date of Exam: 06/01/18 Exam# [id number] Ordering Dr: Americo Nazario DO STUDY: CTA [...] Americo Nazario D.O.; Nathanael Jones III, MD Ic Designer Standard Cells: Signed PULMONARY VISIT REPORT Observed: 05/29/2018 Status: F Source: [place] 2:00 PM [facility] REPOSITORY [facility] Pulmonary Medicine of [address] [place] [address] OFFICE VISIT Date of Service: 05/29/18 MR#: [id number] Acct: [id number] Name: OLMAN REDDY Rep #: [id number] : 1935 Provider: Americo Nazario D.O. Age/Sex: 82/M Location: [facility] Status: Signed Assessment AND Plan 1. Shortness [...] tness of breath Follow Up 1 Week ([facility]) HPI HPI Comments Details: The patient [...] lb Intake Visit Reasons: [address] [facility] Vendor: [employer] Accompanied by: Allergies pioglitazone HCl [From GO-SIM] Adverse Reaction (Verified 05/29/18 12:50) Upset Stomach [...] PRN #1 device 05/29/18 [Rx Confirmed 05/29/18] [facility] Medical History Diabetes mellitus (Chronic) BMI 40.0-44.9, adult (Chronic) Dyspnea (Chronic) Cough (Chronic) Shortness of breath (Chronic) Obesity (Chronic) Upper respiratory infection (Resolved) Right flank pain (Resolved) Atherosclerotic heart disease of [place] coronary artery without angina pectoris (Chronic) 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 (Chronic) 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) Palpitations (Chronic) Nonrheumatic [...] signed by Americo Nazario DO> Date Americo Nazario DO Cosigner Signature: Date (if applicable) CC: Nathanael Jones III, MD 12 LEAD ELECTROCARDIOGRAM Observed: 05/28/2018 Status: F Source: [place] 1:55 PM [facility] REPOSITORY [facility] Cardiovascular Services [address] [place] [address] 12 Lead EKG 05/25/18 1406 MR#: [id number] Acct: [id number] Name: OLMAN REDDY Rep #: [id number] : 1935 82 From: David Ashton MD [...] ECG Confirmed by POLI GUTIÉRREZ, DAVID ([id number]), acquisition editor SANIA GARCIA ([id number]) on 05/28/2018 1:55:17 PM Referred By: TIM Confirmed By:DAVID ASHTON MD 05/28/18 1355 Date David Ashton MD CC: Nathanael Jones III, MD; Geo Cristina MD Signed DISCHARGE INSTRUCTION Observed: 05/25/2018 Status: F Source: [place] 4:30 PM [facility] REPOSITORY [facility] Medical Records Department [address] [place] [address] Discharge Instruction 05/25/18 1512 MR#: [id number] Acct: [id number] Name: OLMAN REDDY Rep #: [id number] : 1935 82 From: Geo Cristina MD [...] problems, contact your Primary Care Provider. Call [facility] ([phone]) or report to the closest Emergency Room. Call 911 if necessary. 05/25/18 1630 <Electronically signed by Geo Cristina MD> Date Geo Cristina MD Cosigner Signature (If Indicated): Date CC: Nathanael Jones III, MD EMERGENCY DEPARTMENT Observed: 05/25/2018 Status: F Source: [place] SUMMARY 4:30 PM [facility] REPOSITORY [facility] Medical Records Department [address] [place] [address] Emergency Department Summary 05/25/18 1357 MR#: [id number] Acct: [id number] Name: OMLAN REDDY Rep #: [id number] : 1935 82 From: Geo Cristina MD [...] for 3+ weeks. States he saw his inventory associate who did not feel was a cardiac [...] cardiac stent. This note was generated with [employer] software. It may contain incorrect words, spelling, [...] problems, contact your Primary Care Provider. Call [facility] ([phone]) or report to the closest Emergency Room. Call 911 if necessary. 05/25/18 1630 <Electronically signed by Geo Cristina MD> Date Geo Cristina MD Cosigner Signature (If Indicated): Date CC: Nathanael Jones III, MD CBC W/DIFF, AUTOMATED Collected: 05/25/2018 Status: F Source: [place] 2:15 PM [facility] REPOSITORY TYPE CODE TESTS RESULT OUT OF [...] Lymph 1.10 Performed By: #### L100.0100 #### [facility] [address] [place], [place], [address] BASIC METABOLIC Collected: 05/25/2018 Status: F Source: [place] PROFILE ([facility]) 2:15 PM [facility] REPOSITORY TYPE CODE TESTS RESULT OUT OF [...] GAP Performed By: #### L500.2500, L501.4010 #### [facility] [address] [place], [address] TROPONIN-I Collected: 05/25/2018 Status: F Source: [place] 2:15 PM [facility] REPOSITORY TYPE CODE TESTS RESULT OUT OF RANGE REFERENCE UNITS LAB L501.4010 <0.045 ng/mL Normal < 0.015 TROPONIN-I Result Comment: TROPONIN-I EXPECTED VALUES <0.045 Negative 0.045 - 0.590 Consistent with Cardiac Damage > OR = 0.600 Critical Value Not every elevated troponin is indicative of WI. These values should be used with clinical judgement in examining the patient's clinical picture for diagnosis. To establish a diagnosis of WI versus myocardial injury, there must be a demonstrated rise and/or fall in the troponin values, in addition to ischemic symptoms, EKG changes, new regional wall motion abnormality, and/or angiographical evidence. PLEASE NOTE: REFERENCE RANGES EDITED 17 Performed By: #### L500.2500, L501.4010 #### [facility] [address] [place], [place], [address] CHEST 1 VIEW Observed: 05/25/2018 Status: F Source: [place] (PORTABLE) 1:57 PM [facility] REPOSITORY [facility] Imaging Services [address] [place] [address] Chest 1 View (Portable) MR#: [id number] Acct: [id number] Name: OLMAN REDDY Rep #: [id number] : 1935 M 82 From: Jon Waters MD PCP: Nathanael Jones III, MD Status: PRE ER Study: Chest 1 View (Portable) Date of Exam: 05/25/18 Exam# [id number] Ordering Dr: Geo Cristina MD STUDY: X-RAY [...] Jon Waters MD at 14:23 EST Tel [phone], Service support , CC: Nathanael Jones III, MD; Geo Cristina MD Ic Designer Standard Cells: Signed CBC-COMPLETE BLOOD CNT Collected: 05/21/2018 Status: F Source: [place] NO DIFF 9:16 AM [facility] REPOSITORY TYPE CODE TESTS RESULT OUT OF [...] MPV 9.0 Performed By: #### L100.0500 #### [facility] [address] [place], [address] BASIC METABOLIC Collected: 05/21/2018 Status: F Source: [place] PROFILE (BMP) 9:16 AM [facility] REPOSITORY TYPE CODE TESTS RESULT OUT OF [...] GAP 10 Performed By: #### L500.2500 #### [facility] [address] [place], [address] BNP,B-TYPE NATRIURETIC Collected: 05/21/2018 Status: F Source: [place] PEPTIDE 9:16 AM [facility] REPOSITORY TYPE CODE TESTS RESULT OUT OF RANGE REFERENCE UNITS LAB L503.6620 0-100 pg/mL Normal B-TYPE 35.5 LUIZA PEP Performed By: #### L503.6620 #### [facility] [address] [place], [address] CARDIOLOGY VISIT Observed: 05/21/2018 Status: F Source: [place] REPORT 8:41 AM [facility] REPOSITORY [facility] [address] [place] [address] OFFICE VISIT Date of Service: 05/14/18 MR#: [id number] Acct: [id number] Name: OLMAN REDDY Rep #: [id number] : 1935 Provider: Audelia Espinoza Age/Sex: 82/M Location: [facility] Status: Signed HPI HPI Chief Complaint: [...] 164/86 H Intake Visit Reasons: dyspnea Business Performance Analyst Required: No Accompanied by: Is patient in pain?: No Allergies pioglitazone HCl [From GO-SIM] Adverse Reaction (Verified 05/14/18 16:06) Upset Stomach [...] flank pain (Resolved) Atherosclerotic heart disease of [place] coronary artery without angina pectoris (Chronic) 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 (Chronic) 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 Coronary artery disease involving [place] coronary artery of [place] heart without angina pectoris I25.10 Plan - [...] note prior to saving. Follow Up 05/17/18 ([facility]) Coding Level of Care Code Off vis,est,level 4 Diagnoses Coronary artery disease involving [place] coronary artery of [place] heart without angina pectoris I25.10 Coronary Disease-Associated Artery/Lesion type: [place] artery [place] vs. transplanted heart: [place] heart Associated angina: without angina Hypertension I10 Hypertension type: essential hypertension Pure hypercholesterolemia E78.00 Hyperlipidemia type: pure hypercholesterolemia Coding Level of Care Code Off vis,est,level 4 Diagnoses Coronary artery disease involving [place] coronary artery of [place] heart without angina pectoris I25.10 Coronary Disease-Associated Artery/Lesion type: [place] artery [place] vs. transplanted heart: [place] heart Associated angina: without angina Hypertension I10 Hypertension type: essential hypertension Pure hypercholesterolemia E78.00 Hyperlipidemia type: pure hypercholesterolemia 05/17/18 1417 <Electronically signed by Audelia Espinoza PA> Date Audelia PICKARD 05/21/18 0841<Electronically signed by David Ashton MD> Cosigner Signature: Date (if applicable) David Ashton MD CC: Nathanael Jones III, MD 12 LEAD EKG PERFORMED Observed: 05/14/2018 Status: F Source: [place] BY [facility] 4:28 PM [facility] REPOSITORY [facility] [address] [place] [address] 12 Lead EKG performed by [facility] 05/14/18 1628 MR#: [id number] Acct: [id number] Name: OLMAN REDDY Rep #: [id number] : 1935 82 From: Audelia PICKARD Attending Dr: Audelia Espinoza Status: DEP AMB Ordering Dr: Audelia Espinoza Date: 05/14/18 Location: [facility] Sex: M C Admitted: [facility]/12 Lead EKG performed by [facility] ECG Report Interpretation Sinus Rhythm - occasional PAC # PACs = 1.-Right bundle branch block. ABNORMAL Electronically signed on 07/10/2018 at 16:26 by David Ashton Software Version 8610 07/10/18 1635 Date Audelia PICKARD CC: Nathanael Jones III, MD Date Dictated: 05/14/181627 Date Transcribed: 05/14/181627 Ic Designer Standard Cells: CAROLINE Signed 6 MINUTE WALK TEST Observed: 05/08/2018 Status: F Source: [place] 12:39 PM [facility] REPOSITORY [facility] Pulmonary Services/Neurology [address] [place] [address] MR#: [id number] Acct: [id number] Name: OLMAN REDDY Rep #: [id number] : 1935 82 From: Yobani Durbin MD Referring Dr: Lela Sherman NP Date: Ordering Dr: Iván: Libia Graham Location: PSN PSN 6 Minute Walk Test - 6 Minute Walk Test 6 Minute Walk Test: 6 Minute Walk Test PSN:6-Minute Walk Test Start: 03/13/18 12:49 Freq: Status: Active Protocol: RESP.6MINW Document 03/13/18 12:49 [place] (Rec: 03/13/18 12:51 SF[place]ON [id number]) 6 Minute Walk Test Date Performed 03/13/18 [...] CC: Date Dictated: 03/13/18 1541 Date Transcribed: 03/13/181540 Ic Designer Standard Cells: Yobani Durbin Signed CARDIOLOGY VISIT Observed: 04/19/2018 Status: F Source: [place] REPORT 2:36 PM [facility] REPOSITORY [facility] [address] [place] [address]. [address] [place] [address] OFFICE VISIT Date of Service: 04/19/18 MR#: [id number] Acct: [id number] Name: OLMAN REDDY Rep #: [id number] : 1935 Provider: David Ashton MD Age/Sex: 82/M Location: [facility] Status: Signed [facility] Chief Complaint: Follow up Details: OLMAN REDDY, [...] nitroglycerin he describes this as sharp. In 2015 he underwent a cardiac catheterization [...] brachial Intake Visit Reasons: 6 M Business Performance Analyst Required: No Accompanied by: Is patient in pain?: Yes Allergies pioglitazone HCl [From [employer]] Adverse Reaction (Verified 04/19/18 14:01) Upset Stomach [...] PO BID 04/19/18 [History Confirmed 04/19/18] [facility] Medical History Diabetes mellitus (Chronic) BMI 40.0-44.9, adult (Chronic) Dyspnea (Chronic) Cough (Chronic) Shortness of breath (Chronic) Obesity (Chronic) Upper respiratory infection (Resolved) Right flank pain (Resolved) Atherosclerotic heart disease of [place] coronary artery without angina pectoris (Chronic) 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 (Chronic) 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) Palpitations (Chronic) Nonrheumatic [...] EKG PERFORMED Observed: 04/19/2018 Status: F Source: [place] BY [facility] 2:07 PM [facility] REPOSITORY [facility] [address] [place] [address] 12 Lead EKG performed by [facility] 04/19/18 1406 MR#: [id number] Acct: [id number] Name: OLMAN REDDY Rep #: [id number] : 1935 82 From: David Ashton MD Attending Dr: David Ashton MD Status: DEP AMB Ordering Dr: David Ashton MD Date: 04/19/18 Location: [facility] Sex: M C Admitted: [facility]/12 Lead EKG performed by [facility] ECG Report Interpretation Sinus Rhythm - occasional PAC # PACs = 1.-Right bundle branch block. ABNORMAL Electronically signed on 07/10/2018 at 16:26 by David Ashton QA on Request Software Version [id number] 07/10/18 1635 Date David Ashton MD CC: Nathanael Jones III, MD Date Dictated: 04/19/181405 Date Transcribed: 04/19/181405 Ic Designer Standard Cells: [place] Signed LIVER PROFILE Collected: 04/09/2018 Status: F Source: [place] 8:32 AM [facility] REPOSITORY TYPE CODE TESTS RESULT OUT OF [...] 0.16 Performed By: #### L500.3400, L500.4100 #### [facility] [facility] [address] [place], [address] LIPID PROFILE Collected: 04/09/2018 Status: F Source: [place] 8:32 [facility] REPOSITORY TYPE CODE TESTS RESULT OUT OF [...] 56 Performed By: #### L500.3400, L500.4100 #### [facility] [address] [place], [place], [address] PROGRESS Observed: 03/26/2018 Status: COMPLETED Source: [place] 10:00 AM [facility] REPOSITORY HNO ID: [id number] Author: Nathanael Jones III Service: (none) Author [...] type [address] 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 Hemoglobin A1c has dropped to 6.3 2. [...] - History of left heart catheterization 06/30/2015 [facility] - see scanned documents - Hyperlipidemia LDL [...] MD CNOV Observed: 03/26/2018 Status: COMPLETED Source: [place] 9:00 AM [facility] REPOSITORY Office Visit (FAMPWS) OLMAN REDDY ([id number]) 1935 M Date Time Provider Department 03/26/18 [...] type [address] 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 Hemoglobin A1c has dropped to 6.3 2. 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 [address] [place], [place] [address] Fax REHABILITATION SERVICES DISCHARGE SUMMARY MR#: [id number] Acct: [id number] Name: OLMAN REDDY Rep #: [id number] : 1935 82 From: Emily HARRELLT Referring Dr.: Jewel Carmona MD Status: REG RCR Insurance: [facility] SELF PAY INSURANCE HP - PT D/C [...] not after he gets back out. Worst: 10 Agg: always hurts Eases: take pain medication. [...] please feel free to call me at [phone]. Thank you for the referral of this patient. Sincerely, Emily Jang <Electronically signed by Emily Jang DPT> 03/14/18 1422 CC: Jewel Carmona MD; Nathanael Jones III, MD ELR Signed ECHOCARDIOGRAM COMPLETE Observed: 03/13/2018 Status: F Source: [place] 3:06 PM [facility] REPOSITORY [facility] Cardiovascular Services [address] [place] [address] Echo Complete 03/13/18 1255 MR#: [id number] Acct: [id number] Name: OLMAN REDDY Rep #: [id number] : 1935 82 From: Junior Jurado MD Attending Dr: Lela Sherman MANAGER POST Status: REG CLI Ordering Dr: Lela Sherman MANAGER POST-C Date: 03/13/18 Location: [facility] Sex: M C Admitted: Reason For [...] max mitzy: 58.3 cm/sec Lat Peak E' Mitzy: 6.7 cm/sec Med Peak E' Mitzy: 5.3 [...] Dictated: 03/13/18 1255 Date Transcribed: 03/13/18 1505 Ic Designer Standard Cells: Signed PULMONARY VISIT REPORT Observed: 03/05/2018 Status: F Source: [place] 10:21 AM [facility] REPOSITORY Pulmonary Medicine of [address] [place] [address] OFFICE VISIT Date of Service: 03/05/18 MR#: [id number] Acct: [id number] Name: OLMAN REDDY Rep #: [id number] : 1935 Provider: Lela Shreman Age/Sex: 82/M Location: [facility] Status: Signed Assessment AND Plan 1. Shortness [...] Intake Visit Reasons: 3 M FU Business Performance Analyst Required: No Accompanied by: Is patient in pain?: No Allergies pioglitazone HCl [From GO-SIM] Adverse Reaction (Verified 03/05/18 07:38) Upset Stomach [...] #90 tab 09/06/17 [Rx Confirmed 03/05/18] Hydrocodone/Acetaminophen [[place] 5-325 Tablet] 1 - 2 ea PO 4X/DAY PRN PRN 3 Days #12 tab 01/08/18 [Rx Confirmed 03/05/18] [facility] Medical History Diabetes mellitus (Chronic) BMI 40.0-44.9, adult (Chronic) Dyspnea (Chronic) Cough (Chronic) Shortness of breath (Chronic) Obesity (Chronic) Upper respiratory infection (Resolved) Right flank pain (Resolved) Atherosclerotic heart disease of [place] coronary artery without angina pectoris (Chronic) 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 (Chronic) 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, [address] BNP,B-TYPE NATRIURETIC Collected: 03/05/2018 Status: F Source: [place] PEPTIDE 9:29 AM [facility] REPOSITORY TYPE CODE TESTS RESULT OUT OF RANGE REFERENCE UNITS LAB L503.6620 0-100 pg/mL Normal B-TYPE 52.4 LUIZA PEP Performed By: #### L503.6620 #### [facility] [address] [place], [address] HEMOGLOBIN A1C Collected: 03/01/2018 Status: F Source: [place] 9:26 AM [facility] REPOSITORY TYPE CODE TESTS RESULT OUT OF RANGE REFERENCE UNITS LAB L501.9985 4.2-6.3 % Normal HGB A1C 6.3 Performed By: #### L501.9985 #### [facility] [address] [place], [address] BASIC METABOLIC Collected: 03/01/2018 Status: F Source: [place] PROFILE (BMP) 9:26 AM [facility] REPOSITORY TYPE CODE TESTS RESULT OUT OF [...] Performed By: #### L500.2500, L501.4100, L501.4405 #### [facility] [address] [place], [place], [address] AST(SGOT) Collected: 03/01/2018 Status: F Source: [place] 9:26 AM [facility] REPOSITORY TYPE CODE TESTS RESULT OUT OF RANGE REFERENCE UNITS LAB L501.4100 15-37 U/L Normal AST 22 Performed By: #### L500.2500, L501.4100, L501.4405 #### [facility] [address] [place], [address] ALANINE AMINOTRANSFERAS Collected: 03/01/2018 Status: F Source: [place] (SGPT) 9:26 AM [facility] REPOSITORY TYPE CODE TESTS RESULT OUT OF RANGE REFERENCE UNITS LAB L501.4405 16-61 U/L Normal ALT 39 Performed By: #### L500.2500, L501.4100, L501.4405 #### [facility] [place], [address] INITAL EVALUATION (1) Observed: 02/13/2018 Status: F Source: [place] - PT 5:23 PM [facility] REPOSITORY [facility] Physical Therapy [facility] [address] [place] [address] Fax REHABILITATION SERVICES INITIAL EVALUATION MR#: [id number] Acct: [id number] Name: OLMAN REDDY Rep #: [id number] : 1935 82 From: Maureen Retana MPT Referring Dr.: Jewel Carmona MD Status: REG RCR Insurance: [facility] SELF PAY INSURANCE Patient's Visit Information OLMAN [...] ago and the pain has gotten better. hoping that AT will help. Pt got [...] to be FAXED BACK to us at [phone] for Medicare purposes. Please let me know if there are questions or concerns regarding this plan of care. Physician Signature: Date: <Electronically signed by Maureen Retana MPT> 02/13/18 1723 CC: Jewel Carmona MD; Nathanael Jones III, MD Signed For Medicare only, by signing this I certify the plan of care. Physicians Signature Date EMERGENCY DEPARTMENT Observed: 01/15/2018 Status: F Source: [place] SUMMARY 7:40 AM [facility] REPOSITORY [facility] Medical Records Department [address] [place] [address] Emergency Department Summary 01/08/18 1900 MR#: [id number] Acct: [id number] Name: OLMAN REDDY Rep #: [id number] : 1935 82 From: Pat Courtney DO [...] Course and Treatment: Patient was given one [place] in the emergency department and given a sling [] Treatment Plan: [Patient to follow-up with Dr. Gayle who he has seen in the past for orthopedics. Patient understands he may need further imaging such as possibly MRI to evaluate further] Disposition: [Discharged home in stable condition] Impression: [Right shoulder sprain-possible internal derangement] This note was generated with Chief Trunk dictation software. It may contain incorrect words, [...] problems, contact your Primary Care Provider. Call [facility] ([phone]) or report to the closest Emergency Room. Call 911 if necessary. 01/15/18 0740 <Electronically signed by Pat Courtney DO> Date Pat Courtney DO Cosigner Signature (If Indicated): Date CC: Nathanael Jones III, MD DISCHARGE INSTRUCTION Observed: 01/08/2018 Status: F Source: [place] 7:35 PM [facility] REPOSITORY [facility] Medical Records Department [address] [place] [address] Discharge Instruction 01/08/181932 MR#: [id number] Acct: [id number] Name: OLMAN REDDY Rep #: [id number] : 1935 82 From: Pat Courtney DO PCP: Nathanael Jones III, MD Status: REG ER ED Disposition - Plan for ED Patient: Chief Complaint: Upper Extremity Injury Instructions: ED Sprain Shoulder Prescriptions: Hydrocodone/Acetaminophen [[place] 5-325 Tablet] 1 - 2 ea PO [...] your Primary Care Provider. Call [facility] ([phone]) or report to the closest Emergency Room. Call 911 if necessary. 01/08/181934 <Electronically signed by Pat Courtney DO> Date Pat Courtney DO Cosigner Signature (If Indicated): Date CC: Nathanael Jones III, MD SHOULDER MIN 2 VIEWS Observed: 01/08/2018 Status: F Source: [place] 6:57 PM [facility] REPOSITORY [facility] Imaging Services [address] [place] [address] Shoulder min 2 Views MR#: [id number] Acct: [id number] Name: OLMAN REDDY Rep #: [id number] : 1935 M 82 From: Omer Coronel DO PCP: Nathanael Jones III, MD Status: REG ER Study: Shoulder min 2 Views Date of Exam: 01/08/18 Exam# [id number] Ordering Dr: Pat Courtney DO STUDY: X-RAY [...] Nathanael Jones III, MD; Pat Courtney DO Ic Designer Standard Cells: Signed HEMOGLOBIN A1C Collected: 11/14/2017 Status: F Source: [place] 9:49 AM [facility] REPOSITORY TYPE CODE TESTS RESULT OUT OF RANGE REFERENCE UNITS LAB L501.9985 4.2-6.3 % High HGB A1C 7.1 Performed By: #### L501.9985 #### [facility] [address] [place], [address] BASIC METABOLIC Collected: 11/14/2017 Status: F Source: [place] PROFILE (BMP) 9:49 AM [facility] REPOSITORY TYPE CODE TESTS RESULT OUT OF [...] By: #### L500.2500, L500.4100, L501.4100, L501.4405 #### [facility] [address] [facility] [place], [place], [address] LIPID PROFILE Collected: 11/14/2017 Status: F Source: [place] 9:49 AM [facility] REPOSITORY TYPE CODE TESTS RESULT OUT OF [...] By: #### L500.2500, L500.4100, L501.4100, L501.4405 #### [facility] [address] [facility] [place], [place], [address] AST(SGOT) Collected: 11/14/2017 Status: F Source: [place] 9:49 AM [facility] REPOSITORY TYPE CODE TESTS RESULT OUT OF RANGE REFERENCE UNITS LAB L501.4100 15-37 U/L High AST 38 Performed By: #### L500.2500, L500.4100, L501.4100, L501.4405 #### [facility] [address] [place], [address] ALANINE AMINOTRANSFERAS Collected: 11/14/2017 Status: F Source: [place] (SGPT) 9:49 AM [facility] REPOSITORY TYPE CODE TESTS RESULT OUT OF RANGE REFERENCE UNITS LAB L501.4405 16-61 U/L Normal ALT 45 Performed By: #### L500.2500, L500.4100, L501.4100, L501.4405 #### [facility] [address] [place], [address] XR CHEST 2V FRONTAL/LAT Observed: 09/25/2017 Status: F Source: [place] 11:22 AM [facility] REPOSITORY * * *Final Report* * * [...] RADIOGRAPHIC ABNORMALITY. STABLE APPEARANCE OF THE CHEST Ic Designer Standard Cells: JONATAN Transcribe Date/Time: Sep 26 2017 7:54A Dictated by : CAROLE PRICE MD This examination was interpreted and the report reviewed and electronically signed by: CAROLE PRICE MD on Sep 26 2017 7:58AM EST [id number] PROGRESS Observed: 09/25/2017 Status: COMPLETED Source: [place] 11:12 AM [facility] REPOSITORY HNO ID: [id number] Author: Carmen (RtJuanito Lacy Service: (none) Author Type: Cryptographer Type: Progress Notes Filed: 09/25/2017 11:23 AM [...] AM PROGRESS Observed: 09/25/2017 Status: COMPLETED Source: [place] 10:43 AM [facility] REPOSITORY HNO ID: [id number] Author: Alex Ellison Service: (none) Author Type: [...] - History of left heart catheterization 06/30/2015 [facility] - see scanned documents - Hyperlipidemia LDL [...] Laterality Date - COLONOSCOP W/ OR W/O [facility] SPEC 07/30/03 Colonoscopy - COLONOSCOP W/ OR W/O [facility] SPEC 10/28/08 - COLONOSCOP W/ OR W/O [facility] SPEC 01/29/15 Colonoscopy - ECHO 06/24/2015 [facility] - see scanned documents - EGD W/O [...] MD CNOV Observed: 09/25/2017 Status: COMPLETED Source: [place] 10:15 AM [facility] REPOSITORY Office Visit (WSTR) OLMAN REDDY ([id number]) 1935 M Date Time Provider Department 09/25/17 10:15 AM ALEX ELLISONNEVIN During your visit today, we recorded the [...] - History of left heart catheterization 06/30/2015 [facility] - see scanned documents - Hyperlipidemia LDL [...] Laterality Date - COLONOSCOP W/ OR W/O [facility] SPEC 07/30/03 Colonoscopy - COLONOSCOP W/ OR W/O [facility] SPEC 10/28/08 - COLONOSCOP W/ OR W/O [facility] SPEC 01/29/15 Colonoscopy - ECHO 06/24/2015 [facility] - see scanned documents - EGD W/O [...] unspecified location [J01.90] Order(s):XR CHEST 2V FRONTAL/LAT [[id number]] Order #: [id number] FUTURE doxycycline monohydrate (MONODOX) 100 mg capsuleTake [...] METABOLIC Collected: 09/07/2017 Status: F Source: [place] PROFIL 9:01 AM [facility] REPOSITORY TYPE CODE TESTS RESULT OUT OF [...] Performed By: #### L500.4050, L500.4100, L501.4700 #### [facility] [address] [place], [place], [address] LIPID PROFILE Collected: 09/07/2017 Status: F Source: [place] 9:01 [facility] REPOSITORY TYPE CODE TESTS RESULT OUT OF [...] Performed By: #### L500.4050, L500.4100, L501.4700 #### [facility] [address] [place], [place], [address] BILIRUBIN, DIRECT Collected: 09/07/2017 Status: F Source: [place] 9:01 [facility] REPOSITORY TYPE CODE TESTS RESULT OUT OF RANGE REFERENCE UNITS LAB L501.4700 0.00-0.30 mg/dL Normal D BILI 0.21 Performed By: #### L500.4050, L500.4100, L501.4700 #### [facility] [address] [place], [address] CARDIOLOGY VISIT Observed: 09/06/2017 Status: F Source: [place] REPORT 2:44 PM [facility] REPOSITORY [facility] [address] [place] [address] OFFICE VISIT Date of Service: 09/06/17 MR#: [id number] Acct: [id number] Name: OLMAN REDDY Rep #: [id number] : 1935 Provider: Audelia Espinoza Age/Sex: 82/M Location: [facility] Status: Signed HPI HPI Details: OLMAN [...] Intake Visit Reasons: 6 M FU Business Performance Analyst Required: No Accompanied by: Is patient in pain?: No Allergies pioglitazone HCl [From [employer]] Adverse Reaction (Verified 09/06/17 13:00) Upset Stomach [...] PFSH Medical History Atherosclerotic heart disease of [place] coronary artery without angina pectoris (Chronic) Dilated [...] AND Plan 1. Coronary artery disease involving [place] coronary artery of [place] heart without angina pectoris I25.10 Plan - NEERAJ Bowman Stable, from a cardiac standpoint patient does [...] prior to saving. Follow Up 6 Months (SPAR FINISHER) Coding Level of Care Code Off vis,est,level 3 Diagnoses Coronary artery disease involving [place] coronary artery of [place] heart without angina pectoris I25.10 Coronary Disease-Associated Artery/Lesion type: [place] artery [place] vs. transplanted heart: [place] heart Associated angina: without angina 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 I42.0 Hypertension I10 Hypertension type: essential hypertension Pure hypercholesterolemia E78.00; E78.0 Hyperlipidemia type: pure hypercholesterolemia Coding Level of Care Code Off vis,est,level 3 Diagnoses Coronary artery disease involving [place] coronary artery of [place] heart without angina pectoris I25.10 Coronary Disease-Associated Artery/Lesion type: [place] artery [place] vs. transplanted heart: [place] heart Associated angina: without angina 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 [...] Status: F Source: [place] SHOULD/HIP/KNEE 8:17 AM [facility] REPOSITORY [facility] Imaging Services [address] [place] [address] Inj/Asp [place] Jt Should/Hip/Knee MR#: [id number] Acct: [id number] Name: KARLEERENETTAOLMAN BAZAN Rep #: [id number] : 1935 M 82 From: Jon Waters MD PCP: Nathanael Jones III, MD Status: REG CLI Study: Inj/Asp [place] Jt Should/Hip/Knee Date of Exam: 08/23/17 Exam# [id number] Ordering Dr: Capo Gayle MD PROCEDURE: Fluoroscopic [...] Jon Waters MD at 10:20 EST Tel [phone], Service support , CC: Nathanael Jones III, MD; Capo Gayle MD Ic Designer Standard Cells: Signed PROGRESS Observed: 07/31/2017 Status: COMPLETED Source: [place] 6:45 PM [facility] REPOSITORY HNO ID: [id number] Author: Nathanael Jones III Service: (none) Author [...] MD PROGRESS Observed: 07/31/2017 Status: COMPLETED Source: [place] 6:44 PM [facility] REPOSITORY HNO ID: [id number] Author: Nathanael Jones III Service: (none) Author [...] 3V PELV+ Observed: 07/31/2017 Status: F Source: [place] AP/LAT LT 4:03 PM [facility] REPOSITORY * * *Final Report* * * [...] aspect of the pelvis.. IMPRESSION: NEGATIVE HIP. Ic Designer Standard Cells: PSCB Transcribe Date/Time: Jul 31 2017 4:23P Dictated by : ДМИТРИЙ VIDAL MD This examination was interpreted and the report reviewed and electronically signed by: ДМИТРИЙ VIDAL MD on Jul 31 2017 4:26PM EST [id number] XR SHOULDER 2V Observed: 07/31/2017 Status: F Source: [place] AP/TRUE AP RT 4:03 PM [facility] REPOSITORY * * *Final Report* * * [...] preserved. IMPRESSION: Findings as detailed in report. Ic Designer Standard Cells: PSCB Transcribe Date/Time: Jul 31 2017 4:26P Dictated by : ДМИТРИЙ VIDAL MD This examination was interpreted and the report reviewed and electronically signed by: ДМИТРИЙ VIDAL MD on Jul 31 2017 4:28PM EST [id number] PROGRESS Observed: 07/31/2017 Status: COMPLETED Source: [place] 3:45 PM [facility] RE[facility] HNO ID: [id number] Author: Ej SmithRtJuanito Matute Service: (none) Author Type: Cryptographer Type: Progress Notes Filed: 07/31/2017 3:54 PM [...] PM PROGRESS Observed: 07/31/2017 Status: COMPLETED Source: [place] 3:08 PM [facility] REPOSITORY HNO ID: [id number] Author: Nathanael Jones III Service: (none) Author [...] - History of left heart catheterization 06/30/2015 [facility] - see scanned documents - Hyperlipidemia LDL [...] facility-administered medications on file prior to visit. .famj FAMILY HISTORY Problem Relation Age of Onset [...] 07/17/2017 Status: F Source: [place] 9:49 AM [facility] REPOSITORY TYPE CODE TESTS RESULT OUT OF RANGE REFERENCE UNITS LAB L501.9985 4.2-6.3 % High HGB A1C 7.1 Performed By: #### L501.9985 #### [facility] [address] [facility] [place], [address] MICROALB:CREAT Collected: 07/17/2017 Status: F Source: [place] RATIO,RANDOM UR 9:49 AM [facility] REPOSITORY TYPE CODE TESTS RESULT OUT OF RANGE REFERENCE UNITS LAB L501.1200 NO RANGE EST. mg/dL < Normal UR 13.00 CREAT LAB L502.0500 NO RANGE EST. mg/L < 5.0 Normal MICROALBUMI N,UR LAB L502.0600 <30 mg/g CRE mg/g CRE Test Normal not performed MALB:CREAT Performed By: #### L502.0250 #### [facility] [address] [place], [address] BASIC METABOLIC Collected: 07/17/2017 Status: F Source: [place] PROFILE (BMP) 9:49 AM [facility] REPOSITORY TYPE CODE TESTS RESULT OUT OF [...] Performed By: #### L500.2500, L501.4100, L501.4405 #### [facility] [address] [place], [address] AST(SGOT) Collected: 07/17/2017 Status: F Source: [place] 9:49 AM [facility] REPOSITORY TYPE CODE TESTS RESULT OUT OF RANGE REFERENCE UNITS LAB L501.4100 15-37 U/L High AST 43 Performed By: #### L500.2500, L501.4100, L501.4405 #### [facility] [address] [place], [address] ALANINE AMINOTRANSFERAS Collected: 07/17/2017 Status: F Source: [place] (SGPT) 9:49 AM [facility] REPOSITORY TYPE CODE TESTS RESULT OUT OF RANGE REFERENCE UNITS LAB L501.4405 16-61 U/L Normal ALT 61 Result Comment: Please note revised ALT reference range effective 2017. Performed By: #### L500.2500, L501.4100, L501.4405 #### [facility] [address] [place], [address] ALLERGIES ALLERGIES DATE TYPE / CODE NAME / CODE REACTION SEVERITY SOURCE 06/29/2018 Drug pioglitazone Upset Stomach Unknown [facility] Allergy/416 HCl/[id number](RXNO [facility] [id number]([facility] Hospital ED CT) Repository 2006 DRUG PIOGLITAZONE HCL [facility]/[address] [facility] 738638([facility] Repository ED [facility]) ENCOUNTERS ENCOUNTERS ADMIT/DISCHARGE ACCOUNT ADMITTING ENCOUNTER LOCATION SOURCE NUMBER CLASS 07/11/2018/07/11/19 [id number] Ambulatory [facility] [facility] [place] Repository 07/03/2018 [id number] Ambulatory [facility] ing:LAB Repository 07/02/2018/07/02/19 [id number] Ambulatory [address] HospitalBuild Hospital ing:[facility] Repository 06/26/2018/06/27/19 [id number] Ambulatory [address] Repository 06/13/2018 [id number] Ambulatory [facility] Hospital[facility] Hospital ing:LAB Repository 06/13/2018/06/13/20 [id number] Ambulatory [facility] [facility] Repository 06/08/2018 [id number] Ambulatory [facility]:W [facility] Repository 06/07/2018 [id number] Ambulatory [facility] Hospital ing:PSN Repository 06/05/2018/06/06/20 [id number] Ambulatory [address] Repository 06/05/2018 [id number] Ambulatory [facility] Hospital ing:PAVLAB Repository 06/05/2018/06/05/20 [id number] Ambulatory [facility]MSBuilding:[facility] [place] [address] [facility] Repository 06/01/2018 [id number] Ambulatory [place] [facility]CT Repository 05/29/2018/05/29/20 [id number] Ambulatory BMSBuilding:B [place] [address] [place].[facility] Repository 05/25/2018/05/25/20 [id number] Emergency [address] HospitalBuild Hospital ing:ED Repository 05/21/2018 [id number] Ambulatory [facility] HospitalBuild Hospital ing:[facility] Repository 05/14/2018/05/14/20 [id number] Ambulatory BMSBuilding:B [place] [address] MS.[facility] Repository 04/19/2018/04/19/20 [id number] Ambulatory BMSBuilding:B [place] 18 [place].[facility] Repository 04/09/2018 [id number] Ambulatory [facility] HospitalBuild Hospital ing:LAB Repository 03/26/2018/03/27/20 [id number] Ambulatory [address] Repository 03/14/2018/03/14/20 [id number] Ambulatory [address] HospitalBuild Hospital ing:PT Repository 03/13/2018 [id number] Ambulatory [facility] HospitalBuild Hospital ing:PSN Repository 03/13/2018 [id number] Ambulatory [facility]MSBuilding:[facility] Repository 03/13/2018 [id number] Ambulatory BMSBuilding:[facility] Repository 03/05/2018 [id number] Ambulatory [facility] HospitalBuild Hospital ing:PAVLAB Repository 03/05/2018/03/05/20 [id number] Ambulatory BMSBuilding:B [place] 18 [place].[facility] Repository 03/01/2018 [id number] Ambulatory [facility] HospitalBuild Hospital ing:LAB Repository 01/08/2018/01/09/20 [id number] Emergency [address] HospitalBuild Hospital ing:ED Repository 12/08/2017 [id number] Ambulatory [facility] HospitalBuild Hospital ing:SL Repository 11/29/2017 [id number] Ambulatory [facility] Repository 11/27/2017/11/28/19 [id number] Ambulatory BMSBuilding:B [place] 18 [place].[facility] Repository 11/14/2017 [id number] Ambulatory [facility] HospitalBuild Hospital ing:LAB Repository 09/25/2017/09/26/19 [id number] Ambulatory [address] Repository 09/25/2017/09/27/19 [id number] Ambulatory [address] Repository 09/07/2017 [id number] Ambulatory [facility] HospitalBuild Hospital ing:LAB Repository 09/06/2017/09/07/19 [id number] Ambulatory BMSBuilding:B [place] 18 [place].[facility] Repository 08/23/2017 [id number] Ambulatory [facility] HospitalBuild Hospital ing:RAD Repository 07/31/2017/07/31/19 [id number] Ambulatory [address] Repository 07/31/2017/02/13 [id number] Ambulatory [address] Repository 07/17/[id number] [facility] ing:LAB Repository PAYERS PAYERS ENCOUNTER GUARANTOR PAYER SUBSCRIBER SOURCE 07/11/2018 OLMAN Primary OLMAN [id number] [facility] Number: B: [id number], [place] [id number] Repository [address]Ule: (330) Date:8948-27-30QG [phone] (HP) [id number] [place] [address]AG: 07/11/2018 Secondary NOT GIVENUNK [place] Insurance:SELF PAY [facility] Number: Effective Repository Date:2018-07-05 07/03/2018 OLMAN Primary OLMAN REDDY39 Insurance:[address] Number: B: [id number], [place] [id number] Repository 71118Dsd: (330) Date:1461-31-65ND [phone] () [id number] [place] DAVALOS [address]TB: 07/03/2018 Secondary NOT GIVENUNK [place] Insurance:SELF PAY [facility] Number: Effective Repository Date:2018-07-03 07/02/2018 OLMAN Primary OLMAN REDDY39 Insurance:[facility] Number: B: [id number], [place] [id number] Repository [address]Mfq: (330) Date:4160-72-34SH [phone] (HP) [id number] [place] DAVALOS [address]VK: 07/02/2018 Secondary NOT GIVENUNK [place] Insurance:SELF PAY [facility] Number: Effective Repository Date:2018-06-13 06/13/2018 OLMAN Primary OLMAN REDDY39 Insurance:AEBONITA HADLEY [address] Number: B: [id number], [place] [id number] Repository 117[address]Vwp: (330) Date:2138-29-60YH [phone] (HP) [id number] [place] [address]DE: 06/13/2018 Secondary NOT GIVENUNK [place] Insurance:SELF PAY [facility] Effective Repository Date:2018-06-13 06/13/2018 OLMAN Primary OLMAN REDDY39 Insurance:AEBONITA REDDY[address] Number: B: [id number], [place] [id number] Repository 278[address]Akx: (330) Date:8551-20-42KD [phone] () 618273[place]NSIL[place] [address]LQ: 06/13/2018 Secondary NOT GIVENUNK [place] Insurance:SELF PAY [facility] Number: Effective Repository Date:2018-06-13 06/08/2018 OLMAN Primary OLMAN REDDY39 Insurance:AEBONITA HADLEY [address] Number: B: [id number], [place] [id number] Repository [address]55[address]Egh: (330) Date:8821-83-96CO [phone] (HP) [id number] [place] [address]YP: 06/08/2018 Secondary NOT GIVENUNK [place] Insurance:SELF PAY [facility] Number: Effective Repository Date:2018-06-08 06/07/2018 OLMAN Primary OLMAN REDDY39 Insurance:JOSE ALEJANDRO REDDY[address] Number: B: [id number], [place] [id number] Repository [address]Kpv: (330) Date:9825-41-86BN [phone] (HP) [id number] [place], [place] [address]AZ: 06/07/2018 Secondary NOT GIVENUNK [place] Insurance:SELF PAY [facility] Number: Effective Repository Date:2018-06-05 06/05/2018 OLMAN Primary OLMAN REDDY39 Insurance:AETNA SWGRISELDA[address] Number: B: [id number], [place] [id number] Repository [address]Ehv: (330) Date:2059-23-15NA [phone] (HP) [id number] [place] [address]OD: 06/05/2018 Secondary NOT GIVENUNK [place] Insurance:SELF PAY [facility] Number: Effective Repository Date:2018-06-05 06/05/2018 OLMAN Primary OLMANGALE REDDY39 Insurance:AETNA BARRY[address] Number: B: [id number], [place] [id number] Repository 186[address]Cii: (330) Date:2396-77-04IR [phone] (HP) [id number] [place] [address]WS: 06/05/2018 Secondary NOT GIVENUNK [place] Insurance:SELF PAY [facility] Number: Effective Repository Date:2018-06-04 06/01/2018 OLMAN Primary OLMANGALE REDDY39 Insurance:AETNA BARRY[address] Number: B: [id number], [place] [id number] Repository [address]Zap: (330) Date:2342-37-43ZE [phone] (HP) [id number] [place], [place] [address]IF: 06/01/2018 Secondary NOT GIVENUNK [place] Insurance:SELF PAY [facility] Number: Effective Repository Date:2018-05-29 05/29/2018 OLMAN Primary OLMAN [place] [id number] Insurance:[facility]ASE[facility]JOHN[address] Number: B: [id number], [place] [id number] Repository [address]Oye: (330) Date:4799-24-17UY [phone] (HP) [id number] ROWLAND [address]DR: 05/29/2018 Secondary OLMAN [place] Insurance:MEDICARE [facility] PART A BPolicy B: [id number] Hospital Number: Repository [id number] Date:2018-03-05 05/29/2018 Tertiary NOT GIVENUNK [place] Insurance:SELF PAY [facility] Number: Effective Repository Date:2018-05-21 05/25/2018 OLMAN Primary OLMAN [place] [id number] Insurance:[facility] Number: B: [id number], [place] [id number] Repository 817[address]Tyo: (330) Date:8397-01-56IT [phone] () [id number] ROWLAND [address]FP: 05/25/2018 Secondary OLMAN [place] Insurance:MEDICARE [facility] PART A BPolicy B: [id number] Hospital Number: Repository [id number] Date:2018-05-25 05/25/2018 Tertiary NOT GIVENUNK [place] Insurance:SELF PAY Community [facility] Number: Effective Repository Date:2018-05-25 05/21/2018 OLMAN Primary OLMAN [place] [id number] Insurance:[address] Number: B: [id number], [place] [id number] Repository 30273Ant: (330) Date:0066-69-09PK [phone] (HP) [id number] ROWLAND [address]MM: 05/21/2018 Secondary NOT GIVENUNK [place] Insurance:SELF PAY [facility] Number: Effective Repository Date:2018-05-15 05/14/2018 OLMAN Primary OLMANGALE Felder [id number] Insurance:AETDERRELL REDDY[address] Number: B: [id number], [place] [id number] Repository 06016Xlk: (047) Date:3925-62-45EI [phone] (HP) [id number] [place] DAVALOS [address]LZ: 05/14/2018 Secondary OLMAN [place] Insurance:[facility]IC[facility] PART A BPolicy B: [id number] Hospital Number: Repository [id number] Date:2018-05-14 05/14/2018 Tertiary NOT GIVENUNK [place] Insurance:SELF PAY [facility] Hospital Number: Effective Repository Date:2018-05-14 04/19/2018 OLMAN Primary OLMAN [place] [id number] Insurance:AETDERRELL REDDY[address] Number: B: [id number], [place] [id number] Repository [address]Gws: (192) Date:9663-93-36GZ [phone] () [id number] [place] DAVALOS [address]LD: 04/19/2018 Secondary NOT GIVENUNK [place] Insurance:SELF PAY [facility] Hospital Number: Effective Repository Date:2018-04-19 04/09/2018 OLMAN Primary OLMAN [place] [id number] Insurance:[facility] Number: B: [id number], [place] [id number] Repository 98279Yht: ([phone]) Date:0638-86-58YC [phone] () [id number] [place] DAVALOS [address]AI: 04/09/2018 Secondary NOT GIVENUNK [place] Insurance:SELF PAY Community [facility] Number: Effective Repository Date:2018-04-09 03/14/2018 OLMAN Primary OLMAN REDDY39 Insurance:AETDERRELL HADLEY [address] Number: B: [id number], [place] [id number] Repository 81675Ikd: (330) Date:0480-43-16YA [phone] () [id number] [address]WI: 03/14/2018 Secondary NOT GIVENUNK [place] Insurance:SELF PAY [facility] Number: Effective Repository Date:2018-02-13 03/13/2018 OLMAN Primary OLMNA REDDY39 Insurance:[facility] BARRY[address] Number: B: [id number], [place] [id number] Repository 885[address]Acg: (330) Date:0770-52-07ZF [phone] () [id number] [place] [address]ER: 03/13/2018 Secondary NOT GIVENUNK [place] Insurance:SELF PAY [facility] Number: Effective Repository Date:2018-03-05 03/13/2018 OLMAN Primary OLMANGALE REDDY39 Insurance:BONITA REDDY[address] Number: B: [id number], [place] [id number] Repository 445[address]Bpg: (330) Date:7752-19-93TQ [phone] () 214901KC [place] [address]EE: 03/13/2018 Secondary NOT GIVENUNK [place] Insurance:SELF PAY [facility] Number: Effective Repository Date:2018-03-13 03/13/2018 OLMAN Primary OLMANGALE [id number] Insurance:AETDERRELL REDDY[address] Number: B: [id number], [place] [id number] Repository 625[address]Rhn: (330) Date:1628-64-19HE [phone] (HP) [id number] [place] DAVALOS [address]VC: 03/13/2018 Secondary NOT GIVENUNK [place] Insurance:SELF PAY Community [facility] Number: Effective Repository Date:2018-03-13 03/05/2018 OLMAN Primary OLMAN [place] [id number] Insurance:AETNA LEONIE [address] Number: B: [id number], [place] [id number] Repository 97069Fnt: (330) Date:3584-80-60QB [phone] (HP) [id number] [place] DAVALOS [address]HP: 03/05/2018 Secondary NOT GIVENUNK [place] Insurance:SELF PAY [facility] Number: Effective Repository Date:2018-03-05 03/05/2018 OLMAN Primary OLMAN [place] [id number] Insurance:AETNA LEONIE [address] Number: B: [id number], [place] [id number] Repository 87184Lrd: (330) Date:1209-15-19MR [phone] (HP) [id number] ROWLAND [address]GS: 03/05/2018 Secondary NOT GIVENUNK [place] Insurance:SELF PAY [facility] Number: Effective Repository Date:2018-02-22 03/01/2018 OLMAN Primary OLMAN [place] [id number] Insurance:AETNA BARRY[address] Number: B: [id number], [place] [id number] Repository 37581Qyz: (330) Date:1997-89-39BI [phone] (HP) [id number] ROWLAND [address]BA: 03/01/2018 Secondary NOT GIVENUNK [place] Insurance:SELF PAY [facility] Hospital Number: Effective Repository Date:2018-03-01 01/08/2018 OLMAN Primary OLMAN REDDY39 Insurance:AETNA LEONIE [address] Number: B: [id number], [place] [id number] Repository 91568Ymq: (330) Date:6552-52-72UJ [phone] () [id number] [address]HA: 01/08/2018 Secondary NOT GIVENUNK [place] Insurance:SELF PAY [facility] Hospital Number: Effective Repository Date:2018-01-08 12/08/2017 OLMAN Primary OLMAN [id number] Insurance:[facility] KEELEYBENI[address] Number: B: [id number], [place] [id number] Repository 545[address]Hwr: 330) Date:6912-71-17KG [phone] () [id number] [place] [address]PF: 12/08/2017 Secondary NOT GIVENUNK [place] Insurance:SELF PAY [facility] Hospital Number: Effective Repository Date:2017-11-30 11/29/2017 OLMAN Primary OLMAN [id number] Insurance:BRIGETTE RUBIJOHNDO Community [address] MEDICARE PPOPolicy B: [id number], [place] Number: Repository 934[address]Lmx: 330 [id number] [phone] () Date:3128-37-68GX [address]CHUMHHJ, [place] [address]CU: 11/29/2017 Secondary NOT GIVENUNK [place] Insurance:SELF PAY [facility] Hospital Number: Effective Repository Date:2017-11-29 11/27/2017 OLMAN Primary OLMANGALE [id number] Insurance:JOSE ALEJANDRO REDDY[address] Number: B: [id number], [place] [id number] Repository 01966Yzw: (330) Date:2135-93-87YJ [phone] () [id number] PASCHELO [place] [address]ZA: 11/27/2017 Secondary NOT GIVENUNK [place] Insurance:SELF PAY Community [facility] Number: Effective Repository Date:2017-11-17 11/14/2017 OLMAN Primary OLMANGALE REDDY39 Insurance:JOSE ALEJANDRO REDDY[address] Number: B: [id number], [place] [id number] Repository 11517Eua: (330) Date:3121-71-36YK [phone] () [id number] [place] DAVALOS [address]TT: 11/14/2017 Secondary NOT GIVENUNK [place] Insurance:SELF PAY Community [facility] Number: Effective Repository Date:2017-11-14 09/07/2017 OLMAN Primary OLMANGALE Felder [id number] Insurance:JOSE ALEJANDRO HADLEY [address] Number: B: [id number], [place] [id number] Repository 69332Fbs: (330) Date:6028-29-03NC [phone] () [id number] [place] DAVALOS [address]BX: 09/07/2017 Secondary NOT GIVENUNK [place] Insurance:SELF PAY [facility] Number: Effective Repository Date:2017-09-07 09/06/2017 OLMAN Primary OLMAN [place] [id number] Insurance:JOSE ALEJANDRO REDDY[address] Number: B: [id number], [place] [id number] Repository 23[address]Lrm: (330) Date:5730-51-61VT [phone] (HP) 939421KDCHELO ROWLAND [address]OG: 09/06/2017 Secondary NOT GIVENUNK [place] Insurance:SELF PAY [facility] Number: Effective Repository Date:2017-09-06 08/23/2017 OLMAN Primary OLMAN [id number] Insurance:JOSE ALEJANDRO HADLEY [facility] Number: B: [id number], [place] [id number] Repository 97[address]Yyb: (330) Date:5755-46-85ID [phone] () 457843PHCHELO ROWLAND [address]TK: 08/23/2017 Secondary NOT GIVENUNK [place] Insurance:SELF PAY [facility] Number: Effective Repository Date:2017-08-18 07/17/2017 OLMAN Primary OLMAN Fel[place] [id number] Insurance:BRIGETTE HADLEY Community [address] MEDICARE PPOPolicy B: [id number], [place] Number: Repository 36845Xtn: 330 [id number] [phone] () Date:6131-70-36XK [address]761OVEKKZH, [place] [address]LU: 07/17/2017 Secondary NOT GIVENUNK [place] Insurance:SELF PAY [facility] Hospital Number: Effective Repository Date:2017-07-17
== END ==
PROVIDERS: Family Provider Family Medicine; PCP Family Medicine; Referring Provider Internal Medicine Critical Care Medicine; Visit Provider Internal Medicine Critical Care Medicine
DX: R06.02 Shortness of breath (principal)
CPT/HCPCS: 71275; Q9967

== ENCOUNTER → 2018-06-05 10:04 | Outpatient (CLI) | payer MEDICARE, SELFPAY ==
[2018-06-05 09:08] VITALS: BMI 42.0
[2018-06-05 11:01] LABS: Anion Gap 7 (5-15); BUN 24 mg/dL (7-18); BUN/Creat Ratio 16.1 RATIO (10-20); Calcium,Total 10.1 mg/dL (8.5-10.1); Chloride 101 mmol/L (98-107); Creatinine, Serum 1.49 mg/dL (0.70-1.30); EST Glomerular Filtration Rate 48 mL/min (>60); Est Glom Filt Rate - Afr Amer 58 mL/min (>60); Glucose 157 mg/dL (74-106); Potassium 4.5 mmol/L (3.5-5.1); Sodium Level 137 mmol/L (136-145)
[2018-06-05 11:20] LABS: BNP,B-Type NATRIURETIC PEPTIDE 25.4 pg/mL (0-100)
--- OUTSIDE RECORDS SUMMARY | 2018-09-06 17:26 | XMS RPT_ITS ---
:1935 Author Organization OHIP Support Name Relationship Address Phone R Unavailable Unavailable Unavailable SWARTZENTRUBER, J LUIS Unavailable [address] + [place] [address] R Unavailable Unavailable Unavailable SWARTZENTRUBER, J LUIS Unavailable [address] + [place] [address] R Unavailable Unavailable Unavailable SWARTZENTRUBER, J LUIS Unavailable [address] + [place] [address] R Unavailable Unavailable Unavailable SWARTZENTRUBER, J LUIS Unavailable [address] + [place] [address] R Unavailable Unavailable Unavailable SWARTZENTRUBER, J LUIS Unavailable [address] + [place] [address] R Unavailable Unavailable Unavailable SWARTZENTRUBER, J LUIS Unavailable [address] + [place] [address] R Unavailable Unavailable Unavailable SWARTZENTRUBER, J LUIS Unavailable [address] + [place] [address] R Unavailable Unavailable Unavailable SWARTZENTRUBER, J LUIS Unavailable [address] + [place] [address] R Unavailable Unavailable Unavailable SWARTZENTRUBER, J LUIS Unavailable [address] + [place] [address] R Unavailable Unavailable Unavailable SWARTZENTRUBER, J LUIS Unavailable [address] + [place] [address] R Unavailable Unavailable Unavailable SWARTZENTRUBER, J LUIS Unavailable [address] + [place] [address] R Unavailable Unavailable Unavailable SWARTZENTRUBER, J LUIS Unavailable [address] + [place] [address] R Unavailable Unavailable Unavailable SWARTZENTRUBER, J LUIS Unavailable [address] + [place] [address] R Unavailable Unavailable Unavailable SWARTZENTRUBER, J LUIS Unavailable [address] + [place] [address] R Unavailable Unavailable Unavailable SWARTZENTRUBER, J LUIS Unavailable [address] + [place] [address] R Unavailable Unavailable Unavailable SWARTZENTRUBER, J LUIS Unavailable [address] + [place] [address] R Unavailable Unavailable Unavailable SWARTZENTRUBER, J LUIS Unavailable [address] + [place] [address] R Unavailable Unavailable Unavailable SWARTZENTRUBER, J LUIS Unavailable [address] + [place] [address] R Unavailable Unavailable Unavailable SWARTZENTRUBER, J LUIS Unavailable [address] + [place] [address] R Unavailable Unavailable Unavailable SWARTZENTRUBER, J LUIS Unavailable [address] + [place] [address] R Unavailable Unavailable Unavailable SWARTZENTRUBER, J LUIS Unavailable [address] + [place] [address] R Unavailable Unavailable Unavailable SWARTZENTRUBER, J LUIS Unavailable [address] + [place] [address] R Unavailable Unavailable Unavailable SWARTZENTRUBER, J LUIS Unavailable [address] + [place] [address] R Unavailable Unavailable Unavailable SWARTZENTRUBER, J LUIS Unavailable [address] + [place] [address] R Unavailable Unavailable Unavailable SWARTZENTRUBER, J LUIS Unavailable [address] + [place] [address] R Unavailable Unavailable Unavailable SWARTZENTRUBER, J LUIS Unavailable [address] + [place] [address] R Unavailable Unavailable Unavailable SWARTZENTRUBER, J LUIS Unavailable [address] + [place] [address] R Unavailable Unavailable Unavailable SWARTZENTRUBER, J LUIS Unavailable [address] + [place] [address] R Unavailable Unavailable Unavailable J LUIS REDDY Unavailable [address] + [place] [address] R Unavailable Unavailable Unavailable J LUIS REDDY Unavailable [address] + [place] [address] R Unavailable Unavailable Unavailable J LUIS REDDY Unavailable [address] + [place] [address] R Unavailable Unavailable Unavailable J LUIS REDDY Unavailable [address] + [place] [address] Care Team Providers Name Role Phone CEBUL [...] Unavailable Audelia Espinoza Attending Unavailable Cebul III, Nathanale Referring Unavailable Audelia Espinoza Attending Unavailable Audelia Espinoza Referring Unavailable Cebul III, Nathanael Primary Care Unavailable Americo Nazario D.O. Attending Unavailable Lela Sherman Referring Unavailable PoliDavid olea Attending Unavailable Poli, [place] Referring Unavailable Cebul III, Nathanael Primary Care [...] Hospital E03.8(ICD-10) Repository 06/13/2018 Unknown I25.10 - Skyla Espinoza Atherosclerotic heart Audelia Reza [facility] disease [facility] coronary artery Repository without angina pectoris / I25.10(ICD-10) 06/13/2018 Unknown E78.5 - Espinoza, Active [place] Hyperlipidemia, Audelia [facility] unspecified / Hospital E78.5(ICD-10) Repository 06/13/2018 Unknown I10 - Essential Espinoza, Active [place] (primary) [facility] hypertension / Hospital I10(ICD-10) Repository 06/13/2018 Unknown R06.01 - Orthopnea / Olga, Active [place] R06.01(ICD-10) [facility] Hospital Repository 06/13/2018 Unknown R06.00 - Dyspnea, Olga, Active [place] unspecified / [facility] R06.00(ICD-10) Hospital Repository 06/21/2018 Unknown R06.02 - Shortness of Americo Brown, Active [place] breath / [facility] Community R06.02(ICD-10) Hospital Repository 05/15/2018 Unknown R07.9 - Chest pain, Olga, Active [place] unspecified / [facility] R07.9(ICD-10) Hospital Repository 04/19/2018 Unknown Z98.61 - Coronary Poli, David Active [place] angioplasty status / Community Z98.61(ICD-10) Hospital Repository 04/19/2018 Unknown E78.00 - Pure Poli, [place] Active [place] hypercholesterolemia, Community unspecified / Hospital E78.00(ICD-10) Repository 03/01/2018 Unknown E11.65 - Type 2 Olivia Jenkins Active [place] diabetes mellitus Community with hyperglycemia / Hospital E11.65(ICD-10) Repository 01/08/2018 Unknown S43.409A - Ungur, Remus Active [place] Unspecified sprain of Community unspecified shoulder Hospital joint, initial Repository encounter / S43.409A(ICD-10) 11/14/2017 Unknown E78.2 - Mixed Olivia Jenkins Active [place] hyperlipidemia / Community E78.2(ICD-10) Hospital Repository 09/25/2017 Active Cough / R05(ICD-10) NA Active [facility] [place] Repository 07/31/2017 Active 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 [place] [address] OFFICE VISIT Date of Service: 07/11/18 MR#: [id number] Acct: [id number] Name: OLMAN REDDY Rep #: [id number] : 1935 Provider: Americo Nazario D.O. Age/Sex: 82/M [facility] Status: Signed Assessment AND Plan 1. [...] This will be continued without change. [facility] and fax[facility] [...] 243 lb Intake Visit Reasons: 1 M Event Promoter Required: No Accompanied by: Is patient in pain?: No Allergies pioglitazone HCl [From [employer]] Adverse Reaction (Verified 06/29/18 11:01) Upset Stomach [...] DAILY #90 tab 06/20/18 [Rx Confirmed 06/29/18] [facility] Medical History Diabetes mellitus (Chronic) BMI 40.0-44.9, adult (Chronic) Dyspnea (Chronic) Cough (Chronic) Shortness of breath (Chronic) Obesity (Chronic) Upper respiratory infection (Resolved) Right flank pain (Resolved) 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 (Chronic) 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 (Chronic) 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 mg/dL Normal UR CREAT 55.00 LAB L502.0500 NO RANGE EST. mg/L Normal 9.1 MICROALBUMIN ,UR LAB L502.0600 <30 mg/g CRE mg/g CRE Normal 16.6 MALB:CREAT Performed By: #### L502.0250 #### [facility] [address] [place], [address] HEMOGLOBIN A1C Collected: 07/03/2018 Status: F Source: [place] 12:52 PM [facility] REPOSITORY TYPE CODE TESTS RESULT OUT OF RANGE REFERENCE UNITS LAB L501.9985 4.2-6.3 % High HGB A1C 7.7 Performed By: #### L501.9985 #### [facility] [address] [facility] [place], [address] BASIC METABOLIC Collected: 07/03/2018 Status: F Source: [place] PROFILE (BMP) 12:52 PM [facility] REPOSITORY TYPE CODE TESTS RESULT OUT OF [...] By: #### L500.2500, L501.4100, L501.4405, L501.9520 #### [facility] [address] [place], [address] AST(SGOT) Collected: 07/03/2018 Status: F Source: [place] 12:52 PM [facility] REPOSITORY TYPE CODE TESTS RESULT OUT OF RANGE REFERENCE UNITS LAB L501.4100 15-37 U/L High AST 47 Performed By: #### L500.2500, L501.4100, L501.4405, L501.9520 #### [facility] [address] [place], [address] ALANINE AMINOTRANSFERAS Collected: 07/03/2018 Status: F Source: [place] (SGPT) 12:52 PM [facility] REPOSITORY TYPE CODE TESTS RESULT OUT OF RANGE REFERENCE UNITS LAB L501.4405 16-61 U/L Normal ALT 56 Performed By: #### L500.2500, L501.4100, L501.4405, L501.9520 #### [facility] [address] [place], [address] THYROID STIM HORMONE Collected: 07/03/2018 Status: F Source: [place] (TSH) 12:52 PM [facility] REPOSITORY TYPE CODE TESTS RESULT OUT OF RANGE REFERENCE UNITS LAB L501.9520 0.358-3.74 uIU/mL Normal TSH 1.16 Performed By: #### L500.2500, L501.4100, L501.4405, L501.9520 #### [facility] [address] [place], [address] VENOUS BLOOD GAS Collected: 07/02/2018 Status: F Source: [place] 10:15 AM [facility] REPOSITORY TYPE CODE TESTS RESULT OUT OF [...] 25 ISTAT Performed By: #### L9000.0810 #### [facility] Point of Care [address] [facility] [place] [address] BLOOD GASES BY CPS Collected: 07/02/2018 Status: F Source: [place] 10:11 AM [facility] REPOSITORY TYPE CODE TESTS RESULT OUT OF [...] ISTAT 94 Performed By: #### L9000.0800 #### [facility] Point of Care [address] [facility] [place] [address] PROGRESS Observed: 06/26/2018 Status: COMPLETED Source: [place] 2:58 PM [facility] REPOSITORY HNO ID: [id number] Author: Libia Billingsley (Filiberto) [place] Service: (none) Author Type: Physician Communications Maintainer Type: Progress Notes Filed: 06/26/2018 4:33 PM [...] unspecified site - 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 12/10/2013 - [...] - History of left heart catheterization 06/30/2015 [facility] - see scanned documents - Hyperlipidemia LDL [...] [place] SPEC 01/29/15 Colonoscopy - ECHO 06/24/2015 [facility] - see scanned documents - EGD W/O [...] 6 Occupational History 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 [employer] Social History Main Topics Smoking status: Former [...] PA-C CNOV Observed: 06/26/2018 Status: COMPLETED Source: [place] 2:00 PM [facility] REPOSITORY Office Visit (FAMPWS) OLMAN REDDY ([id number]) 1935 M Date Time Provider Department 06/26/18 [...] unspecified site - 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 12/10/2013 - [...] - History of left heart catheterization 06/30/2015 [facility] - see scanned documents - Hyperlipidemia LDL [...] [place] SPE[place] 01/29/15 Colonoscopy - ECHO 06/24/2015 [facility] - see scanned documents - EGD W/O [...] 6 Occupational History 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 Chronic renal insufficiency, stage 3 (moderate) ([facility]) - ICD9: 585.3, ICD10: N18.3 stable 4. Controlled type 2 diabetes mellitus with stage 3 chronic kidney disease, without long-term current use of insulin ([facility]) - ICD9: 250.40, 585.3, ICD10: [...] R31.9] Chronic renal insufficiency, stage 3 (moderate) ([facility]) [N18.3] Controlled type 2 diabetes mellitus with stage 3 chronic kidney disease, without long- term current use of insulin (HCC) [E11.22, N18.3] Order(s):UA DIP B/O [1859283] Order #: [id number] UA DIP, URINE (POC) [[id number]] Order #: [id number]. #:[id number] URINE CULTURE [SQURCUL] Order #: [id number] ciprofloxacin HCl (CIPRO) 500 mg tabletTake 1 [...] on 06/26/18 Observed: 06/26/2018 Status: F Source: [place] URINE CULTURE 4:50 AM [facility] REPOSITORY Sp. Request/Comment: - Specimen received in [...] <=0.5 F Performed By: #### URCUL #### [facility] [address], [place] [address] CARDIOLOGY VISIT Observed: 06/25/2018 Status: F Source: [place] REPORT 6:44 AM [facility] REPOSITORY [facility] [id number] 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 Orders Orders: 2. Atherosclerosis of standing [place] coronary artery of standing [place] heart without angina pectoris I25.10 Plan - [...] Dyspnea type: shortness of breath Atherosclerosis of standing [place] coronary artery of standing [place] heart without angina pectoris I25.10 [place] vs. transplanted heart: standing rock heart Hypertension I10 Hypertension type: essential hypertension Pure hypercholesterolemia E78.00 Hyperlipidemia type: pure hypercholesterolemia Coding Level of Care Code Off vis,est,level 4 Diagnoses Shortness of breath R06.02 Dyspnea type: shortness of breath Atherosclerosis of standing [place] coronary artery of standing [place] heart without angina pectoris I25.10 [place] vs. transplanted heart: standing [place] heart Hypertension I10 Hypertension type: essential hypertension [...] 06/13/2018 Status: F Source: [place] 10:49 AM [facility] REPOSITORY TYPE CODE TESTS RESULT OUT OF [...] Lymph 0.99 Performed By: #### L100.0100 #### [facility] [address] [place], [address] PROTHROMBIN TIME W/INR Collected: 06/13/2018 Status: F Source: [place] 10:49 AM [facility] REPOSITORY TYPE CODE TESTS RESULT OUT OF RANGE REFERENCE UNITS LAB L300.4150 11.7-14.9 SECONDS Normal PROTIME 14.4 LAB L300.4200 Normal INR 1.1 Performed By: #### L300.3900, L300.4310 #### [facility] [address] [place], [address] PARTIAL THROMBOPLAST Collected: 06/13/2018 Status: F Source: [place] TIME 10:49 AM [facility] REPOSITORY TYPE CODE TESTS RESULT OUT OF RANGE REFERENCE UNITS LAB L300.4310 24.1-36.2 Seconds Normal PTT 28.0 Performed By: #### L300.3900, L300.4310 #### [facility] [address] [place], [address] BASIC METABOLIC Collected: 06/13/2018 Status: F Source: [place] PROFILE (BMP) 10:49 AM [facility] REPOSITORY TYPE CODE TESTS RESULT OUT OF [...] GAP 12 Performed By: #### L500.2500 #### [facility] [address] [facility] [place], [address] 12 LEAD EKG PERFORMED Observed: 06/13/2018 Status: F Source: [place] BY [facility] 10:08 AM [facility] REPOSITORY [facility] [address] [place] [address] 12 Lead EKG performed by [facility] 06/13/181003 MR#: [id number] Acct: [id number] Name: OLMAN REDDY Rep #: [id number] : 1935 82 From: Audelia PICKARD Attending Dr: Audelia Espinoza Status: DEP AMB Ordering Dr: Audelia Espinoza Date: 06/13/18 Location: [facility] Sex: M C Admitted: [facility]/12 Lead EKG performed by [facility] ECG Report Interpretation Sinus Rhythm - frequent PAC s # PACs = 3.-Right bundle branch block with left axis -bifascicular block. ABNORMAL Electronically signed on 07/10/2018 at 16:26 by David Ashton [employer] Version [id number] 07/10/18 1635 Date Audelia PICKARD CC: Nathanael Jones III, MD Date Dictated: 06/13/181003 Date Transcribed: 06/13/181003 Front Services Agent: CAROLINE Signed 6 MINUTE WALK TEST Observed: 06/08/2018 Status: F Source: [place] 10:30 AM [facility] REPOSITORY [facility] Pulmonary Services/Neurology [address] [place] [address] MR#: [id number] Acct: [id number] Name: OLMAN REDDY Rep #: [id number] : 1935 82 From: Americo Nazario DO Referring Dr: Lela Sherman SVP GROUP DIRECTOR Date: Ordering Dr: Elsa Graham Location: PSN PSN 6 Minute Walk Test - 6 Minute Walk Test 6 Minute Walk Test: 6 Minute Walk Test PSN:6-Minute Walk Test Start: 06/07/18 11:31 Freq: Status: Active Protocol: RESP.6MINW Document 06/07/18 11:32 JLA (Rec: 06/07/18 11:34 JLA [id number]) 6 Minute Walk Test Date Performed 06/07/18 [...] Dictated: 06/08/18 1029 Date Transcribed: 06/08/18 1029 Front Services Agent: Americo Nazario DO Signed PROGRESS Observed: 06/05/2018 Status: COMPLETED Source: [place] 11:22 AM [facility] REPOSITORY HNO ID: [id number] Author: Libia Billingsley (Pa-C) [place] Service: (none) Author Type: Physician Communications Maintainer Type: Progress Notes Filed: 06/05/2018 12:39 PM [...] unspecified site - 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 12/10/2013 - [...] - History of left heart catheterization 06/30/2015 [facility] - see scanned documents - Hyperlipidemia LDL [...] [place] SPEC 01/29/15 Colonoscopy - ECHO 06/24/2015 [facility] - see scanned documents - EGD W/O [...] 6 Occupational History 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 [employer] Social History Main Topics Smoking status: [...] PA-C CNOV Observed: 06/05/2018 Status: COMPLETED Source: [place] 11:00 AM [facility] REPOSITORY Office Visit (FAMPWS) OLMAN REDDY ([id number]) 1935 M Date Time Provider Department 06/05/18 11:00 AM [facility] we recorded [...] unspecified site - 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 12/10/2013 - [...] - History of left heart catheterization 06/30/2015 [facility] - see scanned documents - Hyperlipidemia LDL [...] [place] SPE[place] 01/29/15 Colonoscopy - ECHO 06/24/2015 [facility] - see scanned documents - EGD W/O [...] 6 Occupational History 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 [place] [address] OFFICE VISIT Date of Service: 06/05/18 MR#: [id number] Acct: [id number] Name: OLMAN REDDY Rep #: [id number] : 1935 Provider: Lela Sherman Age/Sex: 82/M Location: [facility].W Status: Signed Assessment AND Plan 1. Shortness [...] maintenance inhalers. He has not tried any mogf-lxh-bhtcbyk medications to treat his symptoms. 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 [place], [place], [address] BNP,B-TYPE NATRIURETIC Collected: 06/05/2018 Status: F Source: [place] 10:26 AM [facility] REPOSITORY TYPE CODE TESTS RESULT OUT OF RANGE REFERENCE UNITS LAB L503.6620 0-100 pg/mL Normal B-TYPE 25.4 LUIZA PEP Performed By: #### L503.6620 #### [facility] [address] [place], [place], [address] CTA CHEST W/WO Observed: 06/01/2018 Status: F Source: [place] CONTRAST 1:28 PM [facility] REPOSITORY [facility] Imaging Services [address] [place] [address] CTA Chest W/WO Contrast MR#: [id number] Acct: [id number] Name: OLMAN REDDY Rep #: [id number] : 1935 M 82 From: Rakesh Rolle MD PCP: Nathnaael Jones III, MD Status: REG CLI Study: CTA Chest W/WO Contrast Date of Exam: 06/01/18 Exam# [id number] Ordering Dr: Americo Nazario DO STUDY: CTA [...] Americo Nazario D.O.; Nathanael Jones III, MD Front Services Agent: Signed PULMONARY VISIT REPORT Observed: 05/29/2018 Status: F Source: [place] 2:00 PM [facility] REPOSITORY [facility] Pulmonary Medicine of [address] [place] [address] OFFICE VISIT Date of Service: 05/29/18 MR#: [id number] Acct: [id number] Name: OLMAN REDDY Rep #: [id number] : 1935 Provider: Americo Nazario D.O. Age/Sex: 82/M Location: [facility] Status: Signed Assessment AND Plan 1. Shortness [...] tness of breath Follow Up 1 Week ([facility]) HPI HPI Comments Details: The patient [...] lb Intake Visit Reasons: 3 M [place] [facility] Vendor: Merrill Accompanied by: Allergies pioglitazone HCl [From [employer]] Adverse Reaction (Verified 05/29/18 12:50) Upset Stomach [...] PRN #1 device 05/29/18 [Rx Confirmed 05/29/18] [facility] Medical History Diabetes mellitus (Chronic) BMI 40.0-44.9, adult (Chronic) Dyspnea (Chronic) Cough (Chronic) Shortness of breath (Chronic) Obesity (Chronic) Upper respiratory infection (Resolved) Right flank pain (Resolved) 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 (Chronic) 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 (Chronic) 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) Palpitations (Chronic) Nonrheumatic [...] LEAD ELECTROCARDIOGRAM Observed: 05/28/2018 Status: F Source: [place] 1:55 PM [facility] REPOSITORY [facility] Cardiovascular Services [address] [place] [address] 12 Lead EKG 05/25/18 1406 MR#: [id number] Acct: [id number] Name: OLMAN REDDY Rep #: [id number] : 1935 82 From: David Ashton MD [...] ECG Confirmed by POLI GUTIÉRREZ, DAVID ([id number]), greeting card editor SANIA GARCIA ([id number]) on 05/28/2018 1:55:17 PM Referred By: TIM Confirmed By:DAVID ASHTON MD 05/28/18 1355 Date David Ashton MD CC: Nathanael Jones III, MD; Geo Cristina MD Signed DISCHARGE INSTRUCTION Observed: 05/25/2018 Status: F Source: [place] 4:30 PM [facility] REPOSITORY [facility] Medical Records Department [address] [place] [address] Discharge Instruction 05/25/18 1512 MR#: [id number] Acct: [id number] Name: OLMAN REDDY Rep #: [id number] : 1935 82 From: Geo Cristina MD [...] problems, contact your Primary Care Provider. Call [facility] ([phone]) or report to the closest Emergency Room. Call 911 if necessary. 05/25/18 1630 <Electronically signed by Geo Cristina MD> Date Geo Cristina MD Cosigner Signature (If Indicated): Date CC: Nathanael Jones III, MD EMERGENCY DEPARTMENT Observed: 05/25/2018 Status: F Source: [place] SUMMARY 4:30 PM [facility] REPOSITORY [facility] Medical Records Department [address] [place] [address] Emergency Department Summary 05/25/18 1357 MR#: [id number] Acct: [id number] Name: OLMAN REDDY Rep #: [id number] : 1935 82 From: Geo Cristina MD [...] for 3+ weeks. 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 This note was generated with [employer] software. It may contain incorrect words, spelling, [...] problems, contact your Primary Care Provider. Call [facility] ([phone]) or report to the closest Emergency Room. Call 911 if necessary. 05/25/18 1630 <Electronically signed by Geo Cristina MD> Date Geo Cristina MD Cosigner Signature (If Indicated): Date CC: Nathanael Jones III, MD CBC W/DIFF, AUTOMATED Collected: 05/25/2018 Status: F Source: [place] 2:15 PM [facility] REPOSITORY TYPE CODE TESTS RESULT OUT OF [...] Lymph 1.10 Performed By: #### L100.0100 #### [facility] [address] [place], [place], [address] BASIC METABOLIC Collected: 05/25/2018 Status: F Source: [place] PROFILE ([facility]) 2:15 PM [facility] REPOSITORY TYPE CODE TESTS RESULT OUT OF [...] GAP Performed By: #### L500.2500, L501.4010 #### [facility] [address] [facility] [place], [address] TROPONIN-I Collected: 05/25/2018 Status: F Source: [place] 2:15 PM [facility] REPOSITORY TYPE CODE TESTS RESULT OUT OF [...] 17 Performed By: #### L500.2500, L501.4010 #### [facility] [address] [facility] [place], [place], [address] CHEST 1 VIEW Observed: 05/25/2018 Status: F Source: [place] (PORTABLE) 1:57 PM [facility] REPOSITORY [facility] Imaging Services [address] [place] [address] Chest 1 View (Portable) MR#: [id number] Acct: [id number] Name: OLMAN REDDY Rep #: [id number] : 1935 M 82 From: Jon Waters MD PCP: Nathanael Jones III, MD Status: PRE ER Study: Chest 1 View (Portable) Date of Exam: 05/25/18 Exam# [id number] Ordering Dr: Geo Cristina MD STUDY: X-RAY [...] Jon Waters MD at 14:23 EST Tel [phone], Service support , CC: Nathanael Jones III, MD; Geo Cristina MD Front Services Agent: Signed CBC-COMPLETE BLOOD CNT Collected: 05/21/2018 Status: F Source: [place] NO DIFF 9:16 AM [facility] REPOSITORY TYPE CODE TESTS RESULT OUT OF [...] MPV 9.0 Performed By: #### L100.0500 #### [facility] [address] [place], [address] BASIC METABOLIC Collected: 05/21/2018 Status: F Source: [place] PROFILE (BMP) 9:16 AM [facility] REPOSITORY TYPE CODE TESTS RESULT OUT OF [...] GAP 10 Performed By: #### L500.2500 #### [facility] [address] [place], [address] BNP,B-TYPE NATRIURETIC Collected: 05/21/2018 Status: F Source: [place] PEPTIDE 9:16 AM [facility] REPOSITORY TYPE CODE TESTS RESULT OUT OF RANGE REFERENCE UNITS LAB L503.6620 0-100 pg/mL Normal B-TYPE 35.5 LUIZA PEP Performed By: #### L503.6620 #### [facility] [address] [place], [address] CARDIOLOGY VISIT Observed: 05/21/2018 Status: F Source: [place] REPORT 8:41 AM [facility] REPOSITORY [facility] 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 Coronary artery disease involving standing rock coronary artery of standing rock heart without angina pectoris I25.10 Plan - [...] note prior to saving. Follow Up 05/17/18 ([facility] as [facility]) Coding Level of Care Code Off vis,est,level 4 Diagnoses Coronary artery disease involving standing rock coronary artery of standing [place] heart without angina pectoris I25.10 Coronary Disease-Associated Artery/Lesion type: standing rock artery [place] vs. transplanted heart: standing rock heart Associated angina: without angina Hypertension I10 Hypertension type: essential hypertension Pure hypercholesterolemia E78.00 Hyperlipidemia type: pure hypercholesterolemia Coding Level of Care Code Off vis,est,level 4 Diagnoses Coronary artery disease involving standing [place] coronary artery of [place] heart without angina pectoris I25.10 Coronary Disease-Associated Artery/Lesion type: [place] artery [place] vs. transplanted heart: standing rock heart Associated angina: without angina Hypertension I10 Hypertension type: essential hypertension Pure hypercholesterolemia E78.00 Hyperlipidemia type: pure hypercholesterolemia 05/17/18 1417 <Electronically signed by Audelia Espinoza PA> Date Audelia PICKARD 05/21/18 0841<Electronically signed by David Ashton MD> Cosigner Signature: Date (if applicable) David Ashton MD CC: Nathanael Jones III, MD 12 LEAD EKG PERFORMED Observed: 05/14/2018 Status: F Source: [place] BY [facility] 4:28 PM [facility] REPOSITORY [facility] [address] [place] [address] 12 Lead EKG performed by [facility] 05/14/18 1628 MR#: [id number] Acct: [id number] Name: OLMAN REDDY Rep #: [id number] : 1935 82 From: Audelia PICKARD Attending Dr: Audelia Espinoza Status: DEP AMB Ordering Dr: Audelia Espinoza Date: 05/14/18 Location: [facility] Sex: M C Admitted: [facility]/12 Lead EKG performed by [facility] ECG Report Interpretation Sinus Rhythm - occasional PAC # PACs = 1.-Right bundle branch block. ABNORMAL Electronically signed on 07/10/2018 at 16:26 by David Ashton Software Version [id number] 07/10/18 1635 Date Audelia PICKARD CC: Nathanael Jones III, MD Date Dictated: 05/14/181627 Date Transcribed: 05/14/181627 Front Services Agent: CAROLINE Signed 6 MINUTE WALK TEST Observed: 05/08/2018 Status: F Source: [place] 12:39 PM [facility] REPOSITORY [facility] Pulmonary Services/Neurology [address] [place] [address] MR#: [id number] Acct: [id number] Name: OLMAN REDDY Rep #: [id number] : 1935 82 From: Yobani Durbin MD Referring Dr: Lela Sherman NP Date: Ordering Dr: Iván: Libia Graham Location: PSN PSN 6 Minute Walk Test - 6 Minute Walk Test 6 Minute Walk Test: 6 Minute Walk Test PSN:6-Minute Walk Test Start: 03/13/18 12:49 Freq: Status: Active Protocol: RESP.6MINW Document 03/13/18 12:49 SFENTON (Rec: 03/13/18 12:51 SFENTON [id number]) 6 Minute Walk Test Date Performed 03/13/18 [...] Date Dictated: 03/13/18 1541 Date Transcribed: 03/13/181540 Front Services Agent: Yobani Durbin Signed CARDIOLOGY VISIT Observed: 04/19/2018 Status: F Source: [place] REPORT 2:36 PM [facility] REPOSITORY [facility] [address] [place] [address]. [address] [place] [address] OFFICE VISIT Date of Service: 04/19/18 MR#: [id number] Acct: [id number] Name: OLMAN REDDY Rep #: [id number] : 1935 Provider: David Ashton MD Age/Sex: 82/M Location: [facility] Status: Signed [facility] Chief Complaint: Follow up Details: OLMAN REDDY, [...] Lt brachial Intake Visit Reasons: 6 M Event Promoter Required: No Accompanied by: Is patient in pain?: Yes Allergies pioglitazone HCl [From [employer]] Adverse Reaction (Verified 04/19/18 14:01) Upset Stomach [...] mg PO BID 04/19/18 [History Confirmed 04/19/18] [facility] Medical History Diabetes mellitus (Chronic) BMI 40.0-44.9, adult (Chronic) Dyspnea (Chronic) Cough (Chronic) Shortness of breath (Chronic) Obesity (Chronic) Upper respiratory infection (Resolved) Right flank pain (Resolved) 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 (Chronic) 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 (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) 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) Palpitations (Chronic) Nonrheumatic [...] EKG PERFORMED Observed: 04/19/2018 Status: F Source: [place] BY [facility] 2:07 PM [facility] REPOSITORY [facility] [address] [place] [address] 12 Lead EKG performed by [facility] 04/19/18 1406 MR#: [id number] Acct: [id number] Name: OLMAN REDDY Rep #: [id number] : 1935 82 From: David Ashton MD Attending Dr: David Ashton MD Status: DEP AMB Ordering Dr: David Ashton MD Date: 04/19/18 Location: [facility] Sex: M C Admitted: [facility]/12 Lead EKG performed by [facility] ECG Report Interpretation Sinus Rhythm - occasional PAC # PACs = 1.-Right bundle branch block. ABNORMAL Electronically signed on 07/10/2018 at 16:26 by David Ashton [employer] Version 8610 07/10/18 1635 Date David Ashton MD CC: Nathanael Jones III, MD Date Dictated: 04/19/181405 Date Transcribed: 04/19/181405 Front Services Agent: [place] Signed LIVER PROFILE Collected: 04/09/2018 Status: F Source: [place] 8:32 AM [facility] REPOSITORY TYPE CODE TESTS RESULT OUT OF [...] 0.16 Performed By: #### L500.3400, L500.4100 #### [facility] [address] [place], [address] LIPID PROFILE Collected: 04/09/2018 Status: F Source: [place] 8:32 [facility] REPOSITORY TYPE CODE TESTS RESULT OUT OF [...] 56 Performed By: #### L500.3400, L500.4100 #### [facility] [address] [place], [place], [address] PROGRESS Observed: 03/26/2018 Status: COMPLETED Source: [place] 10:00 AM [facility] REPOSITORY HNO ID: [id number] Author: Nathanael Jones III Service: (none) Author [...] type [address] 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 Hemoglobin A1c has dropped to 6.3 2. [...] - History of left heart catheterization 06/30/2015 [facility] - see scanned documents - Hyperlipidemia LDL [...] MD CNOV Observed: 03/26/2018 Status: COMPLETED Source: [place] 9:00 AM [facility] REPOSITORY Office Visit (FAMPWS) OLMAN REDDY ([id number]) 1935 M Date Time Provider Department 03/26/18 [...] type [address] 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 Hemoglobin A1c has dropped to 6.3 2. 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 [address] [place], [place] [address] Fax REHABILITATION SERVICES DISCHARGE SUMMARY MR#: [id number] Acct: [id number] Name: OLMAN REDDY Rep #: [id number] : 1935 82 From: Emily HARRELLT Referring Dr.: Jewel Carmona MD Status: REG RCR Insurance: [facility] SELF PAY INSURANCE HP - PT [...] please feel free to call me at [phone]. Thank you for the referral of this patient. Sincerely, Emily Jang <Electronically signed by Emily Jang DPT> 03/14/18 1422 CC: Jewel Carmona MD; Nathanael Jones III, MD ELR Signed ECHOCARDIOGRAM COMPLETE Observed: 03/13/2018 Status: F Source: [place] 3:06 PM [facility] REPOSITORY [facility] Cardiovascular Services [address] [place] [address] Echo Complete 03/13/18 1255 MR#: [id number] Acct: [id number] Name: OLMAN REDDY Rep #: [id number] : 1935 82 From: Junior Jurado MD Attending Dr: Lela Sherman SVP GROUP DIRECTOR Status: REG CLI Ordering Dr: Lela Sherman SVP GROUP DIRECTOR-C Date: 03/13/18 Location: [facility] Sex: M C Admitted: Reason For [...] Dictated: 03/13/18 1255 Date Transcribed: 03/13/18 1505 Front Services Agent: Signed PULMONARY VISIT REPORT Observed: 03/05/2018 Status: F Source: [place] 10:21 AM [facility] REPOSITORY [facility] [address] [place] [address] OFFICE VISIT Date of Service: 03/05/18 MR#: [id number] Acct: [id number] Name: OLMAN REDDY Rep #: [id number] : 1935 Provider: Lela Sherman Age/Sex: 82/M Location: [facility] Status: Signed Assessment AND Plan 1. [...] lb Intake Visit Reasons: 3 M FU Event Promoter Required: No Accompanied by: Is patient in pain?: No Allergies pioglitazone HCl [From [employer]] Adverse Reaction (Verified 03/05/18 07:38) Upset Stomach [...] #90 tab 09/06/17 [Rx Confirmed 03/05/18] Hydrocodone/Acetaminophen [[place] 5-325 Tablet] 1 - 2 ea PO 4X/DAY PRN PRN 3 Days #12 tab 01/08/18 [Rx Confirmed 03/05/18] [facility] Medical History Diabetes mellitus (Chronic) BMI 40.0-44.9, adult (Chronic) Dyspnea (Chronic) Cough (Chronic) Shortness of breath (Chronic) Obesity (Chronic) Upper respiratory infection (Resolved) Right flank pain (Resolved) 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, [address] BNP,B-TYPE NATRIURETIC Collected: 03/05/2018 Status: F Source: [place] PEPTIDE 9:29 AM [facility] REPOSITORY TYPE CODE TESTS RESULT OUT OF RANGE REFERENCE UNITS LAB L503.6620 0-100 pg/mL Normal B-TYPE 52.4 LUIZA PEP Performed By: #### L503.6620 #### [facility] [address] [place], [address] HEMOGLOBIN A1C Collected: 03/01/2018 Status: F Source: [place] 9:26 AM [facility] REPOSITORY TYPE CODE TESTS RESULT OUT OF RANGE REFERENCE UNITS LAB L501.9985 4.2-6.3 % Normal HGB A1C 6.3 Performed By: #### L501.9985 #### [facility] [address] [place], [address] BASIC METABOLIC Collected: 03/01/2018 Status: F Source: [place] PROFILE (BMP) 9:26 AM [facility] REPOSITORY TYPE CODE TESTS RESULT OUT OF [...] Performed By: #### L500.2500, L501.4100, L501.4405 #### [facility] [address] [place], [place], [address] AST(SGOT) Collected: 03/01/2018 Status: F Source: [place] 9:26 AM [facility] REPOSITORY TYPE CODE TESTS RESULT OUT OF RANGE REFERENCE UNITS LAB L501.4100 15-37 U/L Normal AST 22 Performed By: #### L500.2500, L501.4100, L501.4405 #### [facility] [address] [place], [address] ALANINE AMINOTRANSFERAS Collected: 03/01/2018 Status: F Source: [place] (SGPT) 9:26 AM [facility] REPOSITORY TYPE CODE TESTS RESULT OUT OF RANGE REFERENCE UNITS LAB L501.4405 16-61 U/L Normal ALT 39 Performed By: #### L500.2500, L501.4100, L501.4405 #### [facility] [place], [address] INITAL EVALUATION (1) Observed: 02/13/2018 Status: F Source: [place] - PT 5:23 PM [facility] REPOSITORY [facility] [address] [place] [address] Fax REHABILITATION SERVICES INITIAL EVALUATION MR#: [id number] Acct: [id number] Name: OLMAN REDDY Rep #: [id number] : 1935 82 From: Maureen Retana MPT Referring Dr.: Jewel Carmona MD Status: REG RCR Insurance: [facility] SELF PAY INSURANCE Patient's Visit Information OLMAN [...] to be FAXED BACK to us at [phone] for Medicare purposes. Please let me know if there are questions or concerns regarding this plan of care. Physician Signature: Date: <Electronically signed by Maureen Retana MPT> 02/13/18 1723 CC: Jewel Carmona MD; Nathanael Jones III, MD Signed For Medicare only, by signing this I certify the plan of care. Physicians Signature Date EMERGENCY DEPARTMENT Observed: 01/15/2018 Status: F Source: [place] SUMMARY 7:40 AM [facility] REPOSITORY [facility] Medical Records Department [address] [place] [address] Emergency Department Summary 01/08/18 1900 MR#: [id number] Acct: [id number] Name: OLMAN REDDY Rep #: [id number] : 1935 82 From: Pat Courtney DO [...] Course and Treatment: Patient was given one [place] in the emergency department and given a sling [] Treatment Plan: [Patient to follow-up with Dr. Gayle who he has seen in the past for orthopedics. Patient understands he may need further imaging such as possibly MRI to evaluate further] Disposition: [Discharged home in stable condition] Impression: [Right shoulder sprain-possible internal derangement] This note was generated with [employer] dictation software. It may contain incorrect words, [...] problems, contact your Primary Care Provider. Call [facility] ([phone]) or report to the closest Emergency Room. Call 911 if necessary. 01/15/18 0740 <Electronically signed by Pat Courtney DO> Date Pat Courtney DO Cosigner Signature (If Indicated): Date CC: Nathanael Jones III, MD DISCHARGE INSTRUCTION Observed: 01/08/2018 Status: F Source: [place] 7:35 PM [facility] REPOSITORY [facility] Medical Records Department [address] [place] [address] Discharge Instruction 01/08/181932 MR#: [id number] Acct: [id number] Name: OLMAN REDDY Rep #: [id number] : 1935 82 From: Pat Courtney DO PCP: Nathanael Jones III, MD Status: REG ER ED Disposition - Plan for ED Patient: Chief Complaint: Upper Extremity Injury Instructions: ED Sprain Shoulder Prescriptions: Hydrocodone/Acetaminophen [[place] 5-325 Tablet] 1 - 2 ea PO [...] your Primary Care Provider. Call [facility] ([phone]) or report to the closest Emergency Room. Call 911 if necessary. 01/08/181934 <Electronically signed by Pat Courtney DO> Date Pat Courtney DO Cosigner Signature (If Indicated): Date CC: Nathanael Jones III, MD SHOULDER MIN 2 VIEWS Observed: 01/08/2018 Status: F Source: [place] 6:57 PM [facility] REPOSITORY [facility] Imaging Services [address] [place] [address] Shoulder min 2 Views MR#: [id number] Acct: [id number] Name: OLMAN REDDY Rep #: [id number] : 1935 M 82 From: Omer Coronel DO PCP: Nathanael Jones III, MD Status: REG ER Study: Shoulder min 2 Views Date of Exam: 01/08/18 Exam# [id number] Ordering Dr: Pat Courtney DO STUDY: X-RAY [...] Nathanael Jones III, MD; Pat Courtney DO Front Services Agent: Signed HEMOGLOBIN A1C Collected: 11/14/2017 Status: F Source: [place] 9:49 AM [facility] REPOSITORY TYPE CODE TESTS RESULT OUT OF RANGE REFERENCE UNITS LAB L501.9985 4.2-6.3 % High HGB A1C 7.1 Performed By: #### L501.9985 #### [facility] [address] [place], [address] BASIC METABOLIC Collected: 11/14/2017 Status: F Source: [place] PROFILE (BMP) 9:49 AM [facility] REPOSITORY TYPE CODE TESTS RESULT OUT OF [...] By: #### L500.2500, L500.4100, L501.4100, L501.4405 #### [facility] [address] [facility] [place], [place], [address] LIPID PROFILE Collected: 11/14/2017 Status: F Source: [place] 9:49 AM [facility] REPOSITORY TYPE CODE TESTS RESULT OUT OF [...] By: #### L500.2500, L500.4100, L501.4100, L501.4405 #### [facility] [address] [facility] [place], [place], [address] AST(SGOT) Collected: 11/14/2017 Status: F Source: [place] 9:49 AM [facility] REPOSITORY TYPE CODE TESTS RESULT OUT OF RANGE REFERENCE UNITS LAB L501.4100 15-37 U/L High AST 38 Performed By: #### L500.2500, L500.4100, L501.4100, L501.4405 #### [facility] [address] [place], [address] ALANINE AMINOTRANSFERAS Collected: 11/14/2017 Status: F Source: [place] (SGPT) 9:49 AM [facility] REPOSITORY TYPE CODE TESTS RESULT OUT OF RANGE REFERENCE UNITS LAB L501.4405 16-61 U/L Normal ALT 45 Performed By: #### L500.2500, L500.4100, L501.4100, L501.4405 #### [facility] [address] [place], [address] XR CHEST 2V FRONTAL/LAT Observed: 09/25/2017 Status: F Source: [place] 11:22 AM [facility] REPOSITORY * * *Final Report* * * [...] RADIOGRAPHIC ABNORMALITY. STABLE APPEARANCE OF THE CHEST Front Services Agent: JONATAN Transcribe Date/Time: Sep 26 2017 7:54A Dictated by : CAROLE PRICE MD This examination was interpreted and the report reviewed and electronically signed by: CAROLE PRICE MD on Sep 26 2017 7:58AM EST [id number] PROGRESS Observed: 09/25/2017 Status: COMPLETED Source: [place] 11:12 AM [facility] REPOSITORY HNO ID: [id number] Author: Carmen (RtJuanito Lacy Service: (none) Author Type: Sheet Manufacturing Supervisor Type: Progress Notes Filed: 09/25/2017 11:23 AM [...] AM PROGRESS Observed: 09/25/2017 Status: COMPLETED Source: [place] 10:43 AM [facility] REPOSITORY HNO ID: [id number] Author: Alex Ellison Service: (none) Author Type: [...] - History of left heart catheterization 06/30/2015 [facility] - see scanned documents - Hyperlipidemia LDL [...] [place] SPEC 01/29/15 Colonoscopy - ECHO 06/24/2015 [facility] - see scanned documents - EGD W/O [...] MD CNOV Observed: 09/25/2017 Status: COMPLETED Source: [place] 10:15 AM [facility] REPOSITORY Office Visit (WSTR) OLMAN REDDY ([id number]) 1935 M Date Time Provider Department 09/25/17 [...] - History of left heart catheterization 06/30/2015 [facility] - see scanned documents - Hyperlipidemia LDL [...] [place] SPEC 01/29/15 Colonoscopy - ECHO 06/24/2015 [facility] - see scanned documents - EGD W/O [...] unspecified location [J01.90] Order(s):XR CHEST 2V FRONTAL/LAT [0726120] Order #: [id number] FUTURE doxycycline monohydrate (MONODOX) 100 mg capsuleTake [...] Status: F Source: [place] PROFIL 9:01 AM [facility] REPOSITORY TYPE CODE TESTS RESULT OUT OF [...] Performed By: #### L500.4050, L500.4100, L501.4700 #### [facility] [address] [facility] [address] [place], [place], [address] LIPID PROFILE Collected: 09/07/2017 Status: F Source: [place] 9:01 [facility] REPOSITORY TYPE CODE TESTS RESULT OUT OF [...] Performed By: #### L500.4050, L500.4100, L501.4700 #### [facility] [address] [place], [place], [address] BILIRUBIN, DIRECT Collected: 09/07/2017 Status: F Source: [place] 9:01 [facility] REPOSITORY TYPE CODE TESTS RESULT OUT OF RANGE REFERENCE UNITS LAB L501.4700 0.00-0.30 mg/dL Normal D BILI 0.21 Performed By: #### L500.4050, L500.4100, L501.4700 #### [facility] [address] [place], [address] CARDIOLOGY VISIT Observed: 09/06/2017 Status: F Source: [place] REPORT 2:44 PM [facility] REPOSITORY [facility] 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 Coronary artery disease involving standing rock coronary artery of standing rock heart without angina pectoris I25.10 Plan - [...] prior to saving. 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 transplanted heart: standing rock heart Associated angina: without angina 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 [...] Status: F Source: [place] SHOULD/HIP/KNEE 8:17 AM [facility] REPOSITORY [facility] Imaging Services [address] [place] [address] Inj/Asp Chap[place] Jt Should/Hip/Knee MR#: [id number] Acct: [id number] Name: KARLEERENETTAOLMAN BAZAN Rep #: [id number] : 1935 M 82 From: Jon Waters MD PCP: Nathanael Jones III, MD Status: REG CLI Study: Inj/Asp [place] Jt Should/Hip/Knee Date of Exam: 08/23/17 Exam# [id number] Ordering Dr: Capo Gayle MD PROCEDURE: Fluoroscopic [...] Jon Waters MD at 10:20 EST Tel [phone], Service support , CC: Nathanael Jones III, MD; Capo Gayle MD Front Services Agent: Signed PROGRESS Observed: 07/31/2017 Status: COMPLETED Source: [place] 6:45 PM [facility] REPOSITORY HNO ID: [id number] Author: Nathanael Jones III Service: (none) Author [...] MD PROGRESS Observed: 07/31/2017 Status: COMPLETED Source: [place] 6:44 PM [facility] REPOSITORY HNO ID: [id number] Author: Nathanael Jones III Service: (none) Author [...] 3V PELV+ Observed: 07/31/2017 Status: F Source: [place] AP/LAT LT 4:03 PM [facility] REPOSITORY * * *Final Report* * * [...] aspect of the pelvis.. IMPRESSION: NEGATIVE HIP. Front Services Agent: PSCB Transcribe Date/Time: Jul 31 2017 4:23P Dictated by : ДМИТРИЙ VIDAL MD This examination was interpreted and the report reviewed and electronically signed by: ДМИТРИЙ VIDAL MD on Jul 31 2017 4:26PM EST [id number] XR SHOULDER 2V Observed: 07/31/2017 Status: F Source: [place] AP/TRUE AP RT 4:03 PM [facility] REPOSITORY * * *Final Report* * * [...] preserved. IMPRESSION: Findings as detailed in report. Front Services Agent: PSCB Transcribe Date/Time: Jul 31 2017 4:26P Dictated by : ДМИТРИЙ VIDAL MD This examination was interpreted and the report reviewed and electronically signed by: ДМИТРИЙ VIDAL MD on Jul 31 2017 4:28PM EST [id number] PROGRESS Observed: 07/31/2017 Status: COMPLETED Source: [place] 3:45 PM [facility] RE[facility] HNO ID: [id number] Author: Ej SmithRtJuanito Matute Service: (none) Author Type: Sheet Manufacturing Supervisor Type: Progress Notes Filed: 07/31/2017 3:54 PM [...] PM PROGRESS Observed: 07/31/2017 Status: COMPLETED Source: [place] 3:08 PM [facility] REPOSITORY HNO ID: [id number] Author: Nathanael Jones III Service: (none) Author [...] - History of left heart catheterization 06/30/2015 [facility] - see scanned documents - Hyperlipidemia LDL [...] 07/17/2017 Status: F Source: [place] 9:49 AM [facility] REPOSITORY TYPE CODE TESTS RESULT OUT OF RANGE REFERENCE UNITS LAB L501.9985 4.2-6.3 % High HGB A1C 7.1 Performed By: #### L501.9985 #### [facility] [address] [place], [address] MICROALB:CREAT Collected: 07/17/2017 Status: F Source: [place] RATIO,RANDOM UR 9:49 AM [facility] REPOSITORY TYPE CODE TESTS RESULT OUT OF RANGE REFERENCE UNITS LAB L501.1200 NO RANGE EST. mg/dL < Normal UR 13.00 CREAT LAB L502.0500 NO RANGE EST. mg/L < 5.0 Normal MICROALBUMI N,UR LAB L502.0600 <30 mg/g CRE mg/g CRE Test Normal not performed MALB:CREAT Performed By: #### L502.0250 #### [facility] [address] [place], [address] BASIC METABOLIC Collected: 07/17/2017 Status: F Source: [place] PROFILE (BMP) 9:49 AM [facility] REPOSITORY TYPE CODE TESTS RESULT OUT OF [...] Performed By: #### L500.2500, L501.4100, L501.4405 #### [facility] [address] [place], [address] AST(SGOT) Collected: 07/17/2017 Status: F Source: [place] 9:49 AM [facility] REPOSITORY TYPE CODE TESTS RESULT OUT OF RANGE REFERENCE UNITS LAB L501.4100 15-37 U/L High AST 43 Performed By: #### L500.2500, L501.4100, L501.4405 #### [facility] [address] [place], [address] ALANINE AMINOTRANSFERAS Collected: 07/17/2017 Status: F Source: [place] (SGPT) 9:49 AM [facility] REPOSITORY TYPE CODE TESTS RESULT OUT OF RANGE REFERENCE UNITS LAB L501.4405 16-61 U/L Normal ALT 61 Result Comment: Please note revised ALT reference range effective 2017. Performed By: #### L500.2500, L501.4100, L501.4405 #### [facility] [address] [place], [address] ALLERGIES ALLERGIES DATE TYPE / CODE NAME / CODE REACTION SEVERITY SOURCE 06/29/2018 Drug pioglitazone Upset Stomach Unknown [place] Allergy/416 HCl/[id number](RXNO Community 222969([facility] ED CT) Repository 2006 DRUG PIOGLITAZONE HCL [facility]/419 [facility] 503118([facility] Repository ED CT) ENCOUNTERS ENCOUNTERS ADMIT/DISCHARGE ACCOUNT ADMITTING ENCOUNTER LOCATION SOURCE NUMBER CLASS 07/11/2018/07/11/19 [id number] Ambulatory BMSBuilding:B [place] 19 [place].[facility] Hospital Repository 07/03/2018 [id number] Ambulatory [facility] HospitalBuild Hospital ing:LAB Repository 07/02/2018/07/02/19 [id number] Ambulatory [address] HospitalBuild Hospital ing:CLSP Repository 06/26/2018/06/27/19 [id number] Ambulatory [address] Repository 06/13/2018 [id number] Ambulatory [facility] HospitalBuild Hospital ing:LAB Repository 06/13/2018/06/13/20 [id number] Ambulatory BMSBuilding:B [place] 18 MS.[facility] Repository 06/08/2018 [id number] Ambulatory BMSBuilding:W [facility] Repository 06/07/2018 [id number] Ambulatory [facility] HospitalBuild Hospital ing:PSN Repository 06/05/2018/06/06/20 [id number] Ambulatory [address] Repository 06/05/2018 [id number] Ambulatory [facility] HospitalBuild Hospital ing:PAVLAB Repository 06/05/2018/06/05/20 [id number] Ambulatory BMSBuilding:B [place] 18 MS.[facility] Hospital Repository 06/01/2018 [id number] Ambulatory [facility] HospitalBuild Hospital ing:CT Repository 05/29/2018/05/29/20 [id number] Ambulatory BMSBuilding:B [place] 18 [facility] Hospital Repository 05/25/2018/05/25/20 [id number] Emergency [address] HospitalBuild Hospital ing:ED Repository 05/21/2018 [id number] Ambulatory [facility] HospitalBuild Hospital ing:CVS Repository 05/14/2018/05/14/20 [id number] Ambulatory BMSBuilding:B [place] 18 [facility] Repository 04/19/2018/04/19/20 [id number] Ambulatory BMSBuilding:B [place] 18 [facility] Repository 04/09/2018 [id number] Ambulatory [facility] HospitalBuild Hospital ing:LAB Repository 03/26/2018/03/27/20 [id number] Ambulatory [address] Repository 03/14/2018/03/14/20 [id number] Ambulatory [address] HospitalBuild Hospital ing:PT Repository 03/13/2018 [id number] Ambulatory [facility] HospitalBuild Hospital ing:PSN Repository 03/13/2018 [id number] Ambulatory BMSBuilding:W [facility] Hospital Repository 03/13/2018 [id number] Ambulatory BMSBuilding:W [facility] Hospital Repository 03/05/2018 [id number] Ambulatory [facility] HospitalBuild Hospital ing:PAVLAB Repository 03/05/2018/03/05/20 [id number] Ambulatory BMSBuilding:B [place] 18 [facility] Hospital Repository 03/01/2018 [id number] Ambulatory [facility] HospitalBuild Hospital ing:LAB Repository 01/08/2018/01/09/20 [id number] Emergency [place] HospitalBuild Hospital ing:ED Repository 12/08/2017 [id number] Ambulatory [facility] HospitalBuild Hospital ing:SL Repository 11/29/2017 [id number] Ambulatory [facility] Hospital Repository 11/27/2017/11/28/19 [id number] Ambulatory BMSBuilding:B [place] 18 [facility] Hospital Repository 11/14/2017 [id number] Ambulatory [facility] HospitalBuild Hospital ing:LAB Repository 09/25/2017/09/26/19 [id number] Ambulatory [address] Repository 09/25/2017/09/27/19 [id number] Ambulatory [address] Repository 09/07/2017 [id number] Ambulatory [facility] HospitalBuild Hospital ing:LAB Repository 09/06/2017/09/07/19 [id number] Ambulatory BMSBuilding:B [place] 18 MS.[facility] Hospital Repository 08/23/2017 [id number] Ambulatory [facility] HospitalBuild Hospital ing:RAD Repository 07/31/2017/07/31/19 [id number] Ambulatory [address] Repository 07/31/2017/02/13 [id number] Ambulatory [address] Repository 07/17/2017 [id number] Ambulatory [facility] ing:LAB Repository PAYERS PAYERS ENCOUNTER GUARANTOR PAYER SUBSCRIBER SOURCE 07/11/2018 OLMAN Primary OLMAN [id number] Insurance:[facility]OHN[address] Number: B: [id number], [place] [id number] Repository [address]Ykk: (330) Date:1113-03-77UH [phone] (HP) [id number] [place] [address]ME: 07/11/2018 Secondary NOT GIVENUNK [place] Insurance:SELF PAY [facility] Number: Effective Repository Date:2018-07-05 07/03/2018 OLMAN Primary OLMAN REDDY39 Insurance:[address] Number: B: [id number], [place] [id number] Repository [address]Hkh: (330) Date:7776-92-30EQ [phone] () [id number] [place] [address]ZP: 07/03/2018 Secondary NOT GIVENUNK [place] Insurance:SELF PAY [facility] Number: Effective Repository Date:2018-07-03 07/02/2018 OLMAN Primary OLMAN REDDY39 Insurance:[facility] CENTERGRISELDA[address] Number: B: [id number], [place] [id number] Repository 17697Xfy: (330) Date:8726-36-37XA [phone] (HP) [id number] [place] [phone]: 07/02/2018 Secondary NOT GIVENUNK [place] Insurance:SELF PAY [facility] Number: Effective Repository Date:2018-06-13 06/13/2018 OLMAN Primary OLMAN REDDY39 Insurance:AEBONITA HADLEY [address] Number: B: [id number], [place] [id number] Repository 125[address]Dot: (330) Date:7807-14-11HV [phone] (HP) [id number] [address]PH: 06/13/2018 Secondary NOT GIVENUNK [place] Insurance:SELF PAY Community [facility] Number: Effective Repository Date:2018-06-13 06/13/2018 OLMAN Primary OLMAN [id number] Insurance:AEBONITA REDDY[address] Number: B: [id number], [place] [id number] Repository [address]Cub: (330) Date:2529-87-97IJ [phone] () 937442NMUNIV[place] [address]RJ: 06/13/2018 Secondary NOT GIVENUNK [place] Insurance:SELF PAY Community [facility] Number: Effective Repository Date:2018-06-13 06/08/2018 OLMAN Primary OLMAN REDDY39 Insurance:AEBONITA HADLEY [address] Number: B: [id number], [place] [id number] Repository [address]Uun: (330) Date:0804-01-44NG [phone] (HP) 062829TUUNIVERSITY [place] [address]MM: 06/08/2018 Secondary NOT GIVENUNK [place] Insurance:SELF PAY [facility] Number: Effective Repository Date:2018-06-08 06/07/2018 OLMAN Primary OLMAN REDDY39 Insurance:JOSE ALEJANDRO REDDY[address] Number: B: [id number], [place] [id number] Repository [address]Svt: (330) Date:8069-04-77JZ [phone] (HP) 090101CL [place], [place] [address]AC: 06/07/2018 Secondary NOT GIVENUNK [place] Insurance:SELF PAY Community [facility] Number: Effective Repository Date:2018-06-05 06/05/2018 OLMAN Primary OLMAN REDDY39 Insurance:AETNA SWGRISELDA[address] Number: B: [id number], [place] [id number] Repository [address]Ikf: (330) Date:5398-09-40WT [phone] (HP) [id number] [place] [address]US: 06/05/2018 Secondary NOT GIVENUNK [place] Insurance:SELF PAY [facility] Number: Effective Repository Date:2018-06-05 06/05/2018 OLMAN Primary OLMANGALE REDDY39 Insurance:AETNA BARRY[address] Number: B: [id number], [place] [id number] Repository [address]Nmq: (330) Date:2382-99-35JR [phone] (HP) [id number] [place] [address]ID: 06/05/2018 Secondary NOT GIVENUNK [place] Insurance:SELF PAY [facility] Number: Effective Repository Date:2018-06-04 06/01/2018 OLMAN Primary OLMANGALE REDDY39 Insurance:AETNA BARRY[address] Number: B: [id number], [place] [id number] Repository [address]Nxe: (330) Date:5281-41-86UQ [phone] (HP) [id number] [place], [place] [address]PJ: 06/01/2018 Secondary NOT GIVENUNK [place] Insurance:SELF PAY [facility] Number: Effective Repository Date:2018-05-29 05/29/2018 OLMAN Primary OLMAN [place] [id number] Insurance:BEMIDJ[facility] CENTERRENETTAGRAND [facility] HOSPITALJOHN[address] Number: B: [id number], [place] [id number] Repository [address]Hcx: (330) Date:1638-55-04CC [phone] (HP) [id number] [place] [address]MD: 05/29/2018 Secondary OLMAN [place] Insurance:MEDICARE [facility] PART A BPolicy B: [id number] Hospital Number: Repository [id number] Date:2018-03-05 05/29/2018 Tertiary NOT GIVENUNK [place] Insurance:SELF PAY [facility] Number: Effective Repository Date:2018-05-21 05/25/2018 OLMAN Primary OLMAN [place] [id number] Insurance:[facility]IDJ[facility] MEDICAL CENTERRENETTA[address] Number: B: [id number], [place] [id number] Repository [address]Zdp: (330) Date:8699-29-42WB [phone] () [id number] ROWLAND [address]RX: 05/25/2018 Secondary OLMAN [place] Insurance:MEDICARE [facility] PART A BPolicy B: [id number] Hospital Number: Repository [id number] Date:2018-05-25 05/25/2018 Tertiary NOT GIVENUNK [place] Insurance:SELF PAY Community [facility] Number: Effective Repository Date:2018-05-25 05/21/2018 OLMAN Primary OLMAN [place] [id number] Insurance:[address] Number: B: [id number], [place] [id number] Repository 149[address]Xys: (330) Date:0470-48-15IM [phone] (HP) [id number] ROWLAND [address]KI: 05/21/2018 Secondary NOT GIVENUNK [place] Insurance:SELF PAY [facility] Number: Effective Repository Date:2018-05-15 05/14/2018 OLMAN Primary OLMANGALE [place] [id number] Insurance:AETDERRELL REDDY[address] Number: B: [id number], [place] [id number] Repository [address]Yil: (804) Date:1586-11-67OY [phone] (HP) [id number] [place] DAVALSO [address]PM: 05/14/2018 Secondary OLMAN [place] Insurance:MEDICARE [facility]ENTRJOHNFormerly [facility] PART A BPolicy B: [id number] Number: Repository [id number] Date:2018-05-14 05/14/2018 Tertiary NOT GIVENUNK [place] Insurance:SELF PAY [facility] Hospital Number: Effective Repository Date:2018-05-14 04/19/2018 OLMAN Primary OLMAN [place] [id number] Insurance:AETDERRELL REDDY[address] Number: B: [id number], [place] [id number] Repository [address]Sjs: ([phone]) Date:8893-95-24TZ [phone] () [id number] [place] DAVALOS [address]UK: 04/19/2018 Secondary NOT GIVENUNK [place] Insurance:SELF PAY [facility] Hospital Number: Effective Repository Date:2018-04-19 04/09/2018 OLMAN Primary OLMAN [place] [id number] Insurance:[facility] CENTERGRISELDA[address] Number: B: [id number], [place] [id number] Repository 55[address]Nne: (587) Date:2519-88-38CN [phone] () [id number] [place] DAVAL[place] [address]WY: 04/09/2018 Secondary NOT GIVENUNK [place] Insurance:SELF PAY Community [facility] Number: Effective Repository Date:2018-04-09 03/14/2018 OLMAN Primary OLMAN [id number] Insurance:AETDERRELL HADLEY [address] Number: B: [id number], [place] [id number] Repository [address]Ohx: (330) Date:7720-40-66KG [phone] () [id number] [place] [address]UE: 03/14/2018 Secondary NOT GIVENUNK [place] Insurance:SELF PAY [facility] Number: Effective Repository Date:2018-02-13 03/13/2018 OLMAN Primary OLMAN [id number] Insurance:[facility] BARRY[address] Number: B: [id number], [place] [id number] Repository 108[address]Uak: (330) Date:8531-25-93GZ [phone] () 615034YWUNIVERSITY [place] [address]FP: 03/13/2018 Secondary NOT GIVENUNK [place] Insurance:SELF PAY [facility] Number: Effective Repository Date:2018-03-05 03/13/2018 OLMAN Primary OLMANGALE REDDY39 Insurance:BONITA REDDY[address] Number: B: [id number], [place] [id number] Repository [address]Crs: (330) Date:7167-81-14VU [phone] () [id number] [place] [address]BT: 03/13/2018 Secondary NOT GIVENUNK [place] Insurance:SELF PAY [facility] Number: Effective Repository Date:2018-03-13 03/13/2018 OLMAN Primary OLMANGALE [id number] Insurance:AETDERRELL REDDY[address] Number: B: [id number], [place] [id number] Repository [address]Edn: (330) Date:5155-57-51XX [phone] (HP) 004122SN [place]AL[place] [address]WK: 03/13/2018 Secondary NOT GIVENUNK [place] Insurance:SELF PAY Community [facility] Number: Effective Repository Date:2018-03-13 03/05/2018 OLMAN Primary OLMAN [place] [id number] Insurance:AETNA LEONIE [address] Number: B: [id number], [place] [id number] Repository 75[address]Puk: (330) Date:9206-54-38QX [phone] (HP) [id number] [place] [address]LI: 03/05/2018 Secondary NOT GIVENUNK [place] Insurance:SELF PAY [facility] Number: Effective Repository Date:2018-03-05 03/05/2018 OLMAN Primary OLMAN [place] [id number] Insurance:AETNA LEONIE [address] Number: B: [id number], [place] [id number] Repository 379[address]Rls: (330) Date:8111-89-40ME [phone] (HP) [id number] ROWLAND [address]MT: 03/05/2018 Secondary NOT GIVENUNK [place] Insurance:SELF PAY [facility] Number: Effective Repository Date:2018-02-22 03/01/2018 OLMAN Primary OLMAN [place] [id number] Insurance:AETNA ABRRY[address] Number: B: [id number], [place] [id number] Repository 100[address]Ehj: (330) Date:1787-25-82FK [phone] (HP) 374241GSCHELO ROWLAND [address]NN: 03/01/2018 Secondary NOT GIVENUNK [place] Insurance:SELF PAY [facility] Hospital Number: Effective Repository Date:2018-03-01 01/08/2018 OLMAN Primary OLMAN REDDY39 Insurance:AETNA LEONIE [address] Number: B: [id number], [place] [id number] Repository 917[address]Oyc: (330) Date:6393-39-59VA [phone] () [id number] [place] [address]ZX: 01/08/2018 Secondary NOT GIVENUNK [place] Insurance:SELF PAY [facility] Hospital Number: Effective Repository Date:2018-01-08 12/08/2017 OLMAN Primary OLMAN [id number] [facility] KEELEYBENI[address] Number: B: [id number], [place] [id number] Repository 94[address]Lef: 330) Date:6539-55-92IN [phone] () 732100EBUNIVERSITY [place] [address]IE: 12/08/2017 Secondary NOT GIVENUNK [place] Insurance:SELF PAY [facility] Hospital Number: Effective Repository Date:2017-11-30 11/29/2017 OLMAN Primary OLMAN MINAENTRUBER39 Insurance:BRIGETTE RUBIJOHNDO Community [address] MEDICARE PPOPolicy B: [id number], [place] Number: Repository [address]Hfp: 330 [id number] [phone] () Date:7231-99-99WK [address]674WMCRZPU, [place] [address]PZ: 11/29/2017 Secondary NOT GIVENUNK [place] Insurance:SELF PAY [facility] Hospital Number: Effective Repository Date:2017-11-29 11/27/2017 OLMAN Primary OLMANGALE MINAENTRUBER39 Insurance:JOSE ALEJANDRO REDDY[address] Number: B: [id number], [place] [id number] Repository [address]Mro: (330) Date:2168-70-79LK [phone] () [id number] PASCHELO [place] [address]ND: 11/27/2017 Secondary NOT GIVENUNK [place] Insurance:SELF PAY Community [facility] Number: Effective Repository Date:2017-11-17 11/14/2017 OLMAN Primary OLMANGALE [id number] Insurance:JOSE ALEJANDRO REDDY[address] Number: B: [id number], [place] [id number] Repository [address]Jhd: (330) Date:2386-45-16OX [phone] () [id number] [place] [address]OL: 11/14/2017 Secondary NOT GIVENUNK [place] Insurance:SELF PAY Community [facility] Number: Effective Repository Date:2017-11-14 09/07/2017 OLMAN Primary OLMANGALE [place] [id number] Insurance:JOSE ALEJANDRO HADLEY [address] Number: B: [id number], [place] [id number] Repository [address]Zzs: (330) Date:4077-44-58ZH [phone] () [id number] [place] [address]HP: 09/07/2017 Secondary NOT GIVENUNK [place] Insurance:SELF PAY [facility] Number: Effective Repository Date:2017-09-07 09/06/2017 OLMAN Primary OLMAN [place] [id number] Insurance:JOSE ALEJANDRO REDDY[address] Number: B: [id number], [place] [id number] Repository [address]Dtg: (330) Date:7203-90-25HU [phone] (HP) 505708GTCHELO ROWLAND [address]FD: 09/06/2017 Secondary NOT GIVENUNK [place] Insurance:SELF PAY [facility] Number: Effective Repository Date:2017-09-06 08/23/2017 OLMAN Primary OLMAN MINAENTRUBER39 Insurance:JOSE ALEJANDRO HADLEY [address] [facility] Number: B: [id number], [place] [id number] Repository [address]Xie: (330) Date:5394-02-30QO [phone] () [id number] ROWLAND [address]WS: 08/23/2017 Secondary NOT GIVENUNK [place] Insurance:SELF PAY [facility] Number: Effective Repository Date:2017-08-18 07/17/2017 OLMAN Primary OLMAN [place] [id number] Insurance:BRIGETTE HADLEY Community [address] MEDICARE PPOPolicy B: [id number], [place] Number: Repository [address]Gwo: 330 [id number] [phone] () Date:6808-29-56VO [address]48398ESWGXYO, [place] [address]QZ: 07/17/2017 Secondary NOT GIVENUNK [place] Insurance:SELF PAY [facility] Hospital Number: Effective Repository Date:2017-07-17
== END ==
PROVIDERS: Family Provider Family Medicine; PCP Family Medicine; Visit Provider Nurse Practitioner Acute Care
DX: R06.02 Shortness of breath (principal)
CPT/HCPCS: 36415; 80048; 83880

== ENCOUNTER → 2018-06-07 10:57 | Outpatient (CLI) | payer MEDICARE, SELFPAY ==
[2018-06-05 09:08] VITALS: BMI 42.0
[2018-06-07 11:32] VITALS: PULSE 102; PULSE 108; PULSE 117; PULSE 120; PULSE 122; PULSE 83; PULSE 99; O2SAT 92; O2SAT 94; O2SAT 95; O2SAT 96; O2SAT 98
--- NOTE | 2018-06-08 10:29 | PCM.PSN.6M ---
PSN 6 Minute Walk Test - 6 Minute Walk Test 6 Minute Walk Test: 6 Minute Walk Test PSN:6-Minute Walk Test Start: 06/07/18 11:31 Freq: Status: Active Protocol: RESP.6MINW Document 06/07/18 11:32 JLA (Rec: 06/07/18 11:34 JLA [id number]) 6 Minute Walk Test Date Performed 06/07/18 Time Performed 11:00 Height 5 ft 4 in Weight: 245 lb Weight in Pounds 245.[address]: Lela Sherman Assistive device used: None Pre-test Oxygen Delivery Method Room Air Pulse Ox (%) 95 Pulse Rate (60-100 beats/min) 83 Dyspnea Janae Scale (0-10) 4 Exertion Janae Scale (6-20) 6 1st minute Oxygen Delivery Method Room Air Pulse Ox (%) 96 Pulse Rate (60-100 beats/min) 99 2nd minute Oxygen Delivery Method Room Air Pulse Ox (%) 92 Pulse Rate (60-100 beats/min) 102 H 3rd minute Oxygen Delivery Method Room Air Pulse Ox (%) 94 Pulse Rate (60-100 beats/min) 108 H 4th minute Oxygen Delivery Method Room Air Pulse Ox (%) 95 Pulse Rate (60-100 beats/min) 117 H Reported Symptoms Increased Work of Breathing 5th minute Oxygen Delivery Method Room Air Pulse Ox (%) 95 Pulse Rate (60-100 beats/min) 120 H Reported Symptoms Increased Work of Breathing 6th minute Oxygen Delivery Method Room Air Pulse Ox (%) 94 Pulse Rate (60-100 beats/min) 122 H Dyspnea Janae Scale (0-10) 7 Exertion Janae Scale (6-20) 14 Reported Symptoms Increased Work of Breathing Post-test Oxygen Delivery Method Room Air Pulse Ox (%) 98 Pulse Rate (60-100 beats/min) 83 Full Laps Walked 16 Partial Lap, Number of Tiles Walked 0 Total Distance Walked (ft) 944 - Interpretation Interpretation: The patient ambulated 944 feet over the course of 6 minutes beginning on room air without assistive devices or breaks. Pretesting oxygen saturation was noted to be 95% on room air. With ambulation, the malachi oxygen saturation was 92%. There was no significant exertional oxygen desaturation. The patient did become progressively tachycardic with exertion, suggesting a cardiac limitation to exercise tolerance. - Recommendations Recommendations: There is no indication for the use of supplemental oxygen at this time.
== END ==
PROVIDERS: Family Provider Family Medicine; PCP Family Medicine; Referring Provider Nurse Practitioner Acute Care; Visit Provider Nurse Practitioner Acute Care
DX: R06.02 Shortness of breath (principal)
CPT/HCPCS: 94618

== ENCOUNTER → 2018-06-13 10:43 | Outpatient (CLI) | payer MEDICARE, SELFPAY ==
[2018-06-13 09:39] VITALS: BMI 42.0
[2018-06-13 11:49] LABS: Absolute Lymphocyte Count 0.99 X10^3/ul (0.83-4.51); Absolute Neutrophil Count 8.2 X10^3/uL (2.0-7.7); Basophil# 0.03 X10^3/uL; Basophil% 0.3 % (0-1); Eosinophil# 0.08 X10^3/uL; Eosinophils% 0.8 % (0-5); Hematocrit 39.9 % (40-54); Hemoglobin 12.8 g/dl (13.0-16.5); Lymphocyte # 0.99 X10^3/ul (4.0); Lymphocyte % 9.6 % (19-41); Mean Corp Hgb Conc 32.1 g/gl (32-36); Mean Corpuscular Hgb 29.6 pg (27.0-32.0); Mean Corpuscular Volume 92.1 fL (80-94); Mean Platelet Vol. 9.1 fl (6.2-12.0); Monocyte# 0.98 X10^3/uL; Monocyte% 9.5 % (0-10); Neutrophil # 8.22 X10^3/uL (2.7-7.7); Neutrophil % 79.7 % (47-70); POSITIVE COUNT NO; POSITIVE DIFFERENTIAL NO; POSITIVE MORPHOLOGY NO; Platelet Count 224 K/mm3 (150-450); RBC Distribution Width CV 14.5 % (11.6-14.6); RBC Distribution Width SD 48.7 fl (35.1-43.9); Red Blood Count 4.33 M/mm3 (4.6-6.2); White Blood Count 10.3 K/mm3 (4.4-11.0)
[2018-06-13 12:01] LABS: International Normalized Ratio 1.1; Prothrombin Time (Protime)PT. 14.4 SECONDS (11.7-14.9)
[2018-06-13 12:14] LABS: Anion Gap 12 (5-15); BUN 16 mg/dL (7-18); BUN/Creat Ratio 12.4 RATIO (10-20); Calcium,Total 9.5 mg/dL (8.5-10.1); Chloride 103 mmol/L (98-107); Creatinine, Serum 1.29 mg/dL (0.70-1.30); EST Glomerular Filtration Rate 57 mL/min (>60); Est Glom Filt Rate - Afr Amer 69 mL/min (>60); Glucose 97 mg/dL (74-106); Sodium Level 139 mmol/L (136-145)
== END ==
PROVIDERS: Family Provider Family Medicine; PCP Family Medicine; Referring Provider Physician Assistant Medical; Visit Provider Physician Assistant Medical
DX: R06.02 Shortness of breath (principal); I25.10 Atherosclerotic heart disease of native coronary artery without angina pectoris; R06.00 Dyspnea, unspecified; E78.5 Hyperlipidemia, unspecified; I10 Essential (primary) hypertension
CPT/HCPCS: 36415; 80048; 85025; 85610; 85730

== ENCOUNTER 2018-07-02 07:32 | Day surgery (SDC) | payer MEDICARE, SELFPAY ==
[2018-06-13 09:39] VITALS: BMI 42.0
[2018-06-29 10:58] VITALS: BMI 42.0
--- NOTE | 2018-07-02 10:54 | CL.D_ITS ---
Patient Name: DARREN REDDY Study Date: 07/02/2018 Performing: David Ashton MD Ht: 64 inches 162.56 cm : 1935 Wt: 240 lbs 108.86 kg Age: 82 Gender: male BSA: 2.11 PROCEDURE(S) PERFORMED [id number]-[id number]/LHC/COR/LV CLINICAL PROFILE AND INDICATIONS Indications: Suspected CAD Heart Failure: None Stress/Imaging Stress/Image Study Performed: No CAD Presentations: Symptom unlikely to be ischemic. CONCLUSIONS Non obstructive coronary arteries Right heart pressures - Normal RECOMMENDATIONS Risk factor modification Medical therapy DESCRIPTION OF PROCEDURE The patient arrived to the procedure lab. The risks and benefits of the procedure as well as a full d escription of our services here and current unavailability of surgical backup were fully explained to the patient and/or their significant other prior to the catheterization. The Timeout was completed, verifying the correct patient and procedure. The patient's procedural site was prepped and draped in the usual fashion. Local anesthetic was given subcutaneously to right groin region with Lidocaine 2%. Using a modified Seldinger technique, arterial access was obtained via the right femoral artery, a 5 Fr sheath was inserted. Venous access was obtained via the right femoral vein, a 7Fr sheath was inser margo. A 7Fr thermal dilution catheter was inserted and right heart pressures were recorded, it was the n advanced to PA position for cardiac outputs. O2 saturations were then obtained. The Thermal dilutio n catheter was then removed. Left Coronary Artery selective angiography was performed in multiple views using a 5 Fr. JL 6 catheter. Right Coronary Artery selective angiography was then perf ormed in multiple views using a 5 Fr. 3DRC (Gabriel) catheter. Left Ventriculography was performed i n TRIPATHI projection using a 5 Fr. Pigtail catheter. LV to AO pullback pressures were then recorded.Contr ast was injected through the sheath and the Right Iliac and Femoral artery were assessed for possible closure device. CORONARY ANGIOGRAPHY DOMINANCE: Right Dominant LEFT HEART ASSESSMENT Left Ventricular Ejection Fraction: by LV Gram 55 % Normal LV wall motion Normal Left Ventricular systolic function RIGHT HEART ASSESSMENT Seth CO: 4.24 Seth CI: 2.01 RV: 26/2 5 RA: /18 16 SVR: 1320 Right Heart pressures - normal LEFT MAIN: Angiographically normal, No significant disease noted LEFT ANTERIOR DECENDING ARTERY: Previously placed stent is patent, Mild luminal irregularities less t ledesma 30% CIRCUMFLEX ARTERY: Mild luminal irregularities less than 30% RIGHT CORONARY ARTERY: Mild luminal irregularities less than 30% COMPLICATIONS No Complications PROCEDURE MEDICATIONS Versed 0.5 mg IV Oxygen: 2 L/min via nasal cannula SUMMARY OF HEMODYNAMIC DATA Time AIR REST ECG 09:47:05 RA 19/18 (16) SV 10:10:19 RA 10/10 (5) PV 10:11:12 RV 26/2, 5 10:19:20 AO 116/64 (86) SA 10:25:54 LV 119/7, 18 10:41:46 LV 122/8, 17 10:41:53 LV 112/5, 18 10:43:07 LVp 114/7, 15 10:43:11 AOp 117/66 (89) 10:43:16 Type SV CO (l/m) CI (l/m/ HR Time AIR REST Esth 57.30 4.24 2.01 74 09:47:05 Label % O2 Pres/Loc Time AIR REST AO 94 PV 10:28:20 RA 56 PA 10:28:50 Signed By David Ashton MD On 07/02/2018 10:53:39 David Ashton MD
[2018-07-02 11:11] LABS: Blood Gas Specimen Type VEN; VBG BASE EXCESS -2 mmol/L (-1.0-3.5); VBG Bicarbonate 24 mmol/L (22-26); VBG Oxygen Content 25 mmol/L (23-33); VBG PO2 31 mmHg (25-40); VBG SO2 56 % (50-70); VBG pCO2 43.5 mmHg (41-51); VBG pH 7.35 (7.32-7.42)
[2018-07-02 11:11] LABS: Base Excess -1 mmol/L (-2 to +2); Bicarbonate 23.4 mmol/L (22-26); Blood Gas Specimen Type ART; PO2 68 mmHG (75-100); SO2 94 % (95-99); Total Carbon Dioxide 24 mmol/L; pCO2 36.8 mmHg (35-45); pH 7.41 (7.35-7.45)
== END 2018-07-02 14:25 | disposition home or self-care (01) ==
LOC: CLSP 07:33
PROVIDERS: Family Provider Family Medicine; PCP Family Medicine; Referring Provider Internal Medicine Cardiovascular Disease; Visit Provider Internal Medicine Cardiovascular Disease
DX: I25.10 Atherosclerotic heart disease of native coronary artery without angina pectoris (principal); E78.5 Hyperlipidemia, unspecified; I10 Essential (primary) hypertension; E11.9 Type 2 diabetes mellitus without complications; E66.9 Obesity, unspecified; Z68.41 Body mass index [BMI] 40.0-44.9, adult; I42.0 Dilated cardiomyopathy; G47.33 Obstructive sleep apnea (adult) (pediatric); E03.9 Hypothyroidism, unspecified; K21.9 Gastro-esophageal reflux disease without esophagitis; N40.0 Benign prostatic hyperplasia without lower urinary tract symptoms; Z87.442 Personal history of urinary calculi; Z86.2 Personal history of diseases of the blood and blood-forming organs and certain disorders involving the immune mechanism; Z95.5 Presence of coronary angioplasty implant and graft; Z79.84 Long term (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 of oral hypoglycemic drugs; Z79.4 Long term (current) use of insulin; Z79.82 Long term (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 of aspirin; Z79.899 Other long term (current) drug therapy; Z87.891 Personal history of nicotine dependence
CPT/HCPCS: 82803; 93460; 99152; 99153; C1760; J7040; Q9967; C1751; C1769; C1894

== ENCOUNTER → 2018-07-03 12:44 | Outpatient (CLI) | payer MEDICARE, SELFPAY ==
[2018-06-29 10:58] VITALS: BMI 42.0
[2018-07-03 14:21] LABS: Microalbumin,Random Urine 9.1 mg/L (NO RANGE EST.); Microalbumin:Creatinine Ratio 16.6 mg/g CRE (<30 mg/g CRE)
[2018-07-03 14:28] LABS: Hemoglobin A1c 7.7 % (4.2-6.3)
[2018-07-03 15:11] LABS: AST(SGOT) 47 U/L (15-37); Alanine Aminotransfer ALT/SGPT 56 U/L (16-61); Anion Gap 7 (5-15); BUN 16 mg/dL (7-18); BUN/Creat Ratio 11.1 RATIO (10-20); Chloride 103 mmol/L (98-107); Creatinine, Serum 1.44 mg/dL (0.70-1.30); EST Glomerular Filtration Rate 50 mL/min (>60); Est Glom Filt Rate - Afr Amer 61 mL/min (>60); Glucose 145 mg/dL (74-106); Potassium 4.3 mmol/L (3.5-5.1); Sodium Level 139 mmol/L (136-145); Thyroid Stim Hormone (TSH) 1.16 uIU/mL (0.358-3.74)
== END ==
PROVIDERS: Family Provider Family Medicine; PCP Family Medicine; Referring Provider Internal Medicine Endocrinology, Diabetes & Metabolism; Visit Provider Internal Medicine Endocrinology, Diabetes & Metabolism
DX: E11.9 Type 2 diabetes mellitus without complications (principal); E03.8 Other specified hypothyroidism
CPT/HCPCS: 36415; 80048; 82043; 82570; 83036; 84443; 84450; 84460

== ENCOUNTER → 2018-07-23 15:12 | Outpatient (CLI) | payer MEDICARE, SELFPAY ==
[2018-07-11 09:10] VITALS: BMI 41.7
--- NOTE | 2018-07-23 16:24 | CT_ITS ---
STUDY: CT ABDOMEN AND PELVIS WITHOUT CONTRAST REASON FOR EXAM: Male, 82 years old. Left flank pain, history of stones RADIATION DOSAGE (If Supplied By Facility): CTDIvol = ( 22.98 ) mGy, DLP = ( 1217.00 ) mGycm TECHNIQUE: Transaxial images were obtained from the dome of the diaphragm to the symphysis pubis without oral contrast, and without intravenous contrast. Sagittal and coronal images were reconstructed. Individualized dose optimization techniques were used for this CT. COMPARISON: 04/30/2016 FINDINGS: The visualized lung bases are unremarkable. The visualized portions of the heart are within normal limits. Stable scattered simple cysts in the liver Normal gallbladder and extrahepatic biliary system. Normal spleen. Normal pancreas. There is a 1.5 cm low attenuation left adrenal mass, consistent with an adrenal adenoma. Normal right adrenal gland. There are nonobstructing stones in the right kidney and an exophytic 1.5 cm cyst in the right kidney. There is a large hiatal hernia composed mostly of the fundus of the stomach. Normal small intestine. Retained stool noted in the colon. There are surgical clips in the region of the appendix consistent with a prior appendectomy. There is diffuse atherosclerotic calcification of the abdominal aorta, without a demonstrated aneurysm. Normal inferior vena cava. Normal retroperitoneum. Normal urinary bladder. There are prostatic calcifications. Bilateral fat-containing inguinal hernias noted. There are diffuse degenerative and postsurgical changes of the visualized lumbar spine. No demonstrated pelvic fracture CT/Abdomen/Pelvis without Cont IMPRESSION: No CT evidence of an acute inflammatory process. Stable scattered hepatic and right renal cysts Nonobstructing right nephrolithiasis Large hiatal hernia Retained stool in the colon Degenerative bony changes Electronically Signed: Calvin Rosas MD at 16:53 EST , Service support ,
== END ==
PROVIDERS: Family Provider Family Medicine; PCP Family Medicine; Referring Provider Nurse Practitioner Adult Health; Visit Provider Nurse Practitioner Adult Health
DX: R10.9 Unspecified abdominal pain (principal)
CPT/HCPCS: 74176

== ENCOUNTER → 2018-08-02 16:52 | Outpatient (CLI) | payer MEDICARE, SELFPAY ==
[2018-07-11 09:10] VITALS: BMI 41.7
== END ==
PROVIDERS: Family Provider Family Medicine; PCP Family Medicine; Referring Provider Urology; Visit Provider Urology
DX: R82.998 Other abnormal findings in urine (principal)
CPT/HCPCS: 87086; 87088; 87186

== ENCOUNTER → 2018-09-14 10:39 | Outpatient (CLI) | payer MEDICARE, SELFPAY | PROVIDERS: Family Provider Family Medicine; PCP Family Medicine; Referring Provider Urology; Visit Provider Urology | DX: N30.00 Acute cystitis without hematuria (principal) | CPT/HCPCS: 87086; 87088 ==

== ENCOUNTER → 2018-09-18 07:07 | Outpatient (CLI) | payer MEDICARE, SELFPAY ==
[2018-07-11 09:10] VITALS: BMI 41.7
[2018-09-18 08:54] LABS: AST(SGOT) 36 U/L (15-37); Alanine Aminotransfer ALT/SGPT 42 U/L (16-61); Albumin, Serum 3.8 g/dL (3.2-5.0); Alkaline Phosphatase 36 U/L (45-117); Bilirubin, Direct 0.14 mg/dL (0.00-0.30); Cholesterol 150 mg/dL (200); High Density Lipoprotein 36 mg/dL; Protein, Total 6.8 g/dL (6.4-8.2); Triglycerides 231 mg/dL; Very Low Density Lipoprotein 46 mg/dL (5-40)
== END ==
PROVIDERS: Family Provider Family Medicine; PCP Family Medicine; Referring Provider Physician Assistant Medical; Visit Provider Physician Assistant Medical
DX: E78.5 Hyperlipidemia, unspecified (principal); I25.10 Atherosclerotic heart disease of native coronary artery without angina pectoris; I10 Essential (primary) hypertension
CPT/HCPCS: 36415; 80061; 80076

== ENCOUNTER → 2018-10-09 | Outpatient (CLI) | payer MEDICARE, SELFPAY ==
[2018-07-11 09:10] VITALS: BMI 41.7
[2018-10-09 09:40] LABS: AST(SGOT) 33 U/L (15-37); Alanine Aminotransfer ALT/SGPT 44 U/L (16-61); Anion Gap 11 (5-15); BUN 17 mg/dL (7-18); BUN/Creat Ratio 12.6 RATIO (10-20); Calcium,Total 9.7 mg/dL (8.5-10.1); Chloride 103 mmol/L (98-107); Creatinine, Serum 1.35 mg/dL (0.70-1.30); EST Glomerular Filtration Rate 54 mL/min (>60); Est Glom Filt Rate - Afr Amer 65 mL/min (>60); Glucose 129 mg/dL (74-106); Potassium 3.7 mmol/L (3.5-5.1); Sodium Level 142 mmol/L (136-145)
[2018-10-09 09:47] LABS: Hemoglobin A1c 7.3 % (4.2-6.3)
== END | disposition home or self-care (01) ==
LOC: LAB 08:37
PROVIDERS: Family Provider Family Medicine; PCP Family Medicine; Referring Provider Internal Medicine Endocrinology, Diabetes & Metabolism; Visit Provider Internal Medicine Endocrinology, Diabetes & Metabolism
DX: E11.9 Type 2 diabetes mellitus without complications (principal)
CPT/HCPCS: 36415; 80048; 83036; 84450; 84460

== ENCOUNTER → 2018-12-10 | Outpatient (CLI) | payer MEDICARE, SELFPAY ==
[2018-10-17 13:02] VITALS: BMI 40.8
[2018-12-10 11:03] LABS: Creatinine, Serum 1.41 mg/dL (0.70-1.30); EST Glomerular Filtration Rate 51 mL/min (>60); Est Glom Filt Rate - Afr Amer 62 mL/min (>60)
== END | disposition home or self-care (01) ==
PROVIDERS: Family Provider Family Medicine; PCP Family Medicine; Referring Provider Physician Assistant; Visit Provider Physician Assistant
DX: M54.16 Radiculopathy, lumbar region (principal)
CPT/HCPCS: 36415; 82565

== ENCOUNTER → 2018-12-27 | Outpatient (CLI) | payer MEDICARE, SELFPAY ==
[2018-10-17 13:02] VITALS: BMI 40.8
[2018-12-25 06:42] VITALS: BMI 39.3
--- NOTE | 2018-12-27 17:49 | MRI_ITS ---
STUDY: MRI LUMBAR SPINE WITHOUT CONTRAST REASON FOR EXAM: Male, 83 years old. TECHNIQUE: Standardized fat and water weighted pulse sequences were obtained in the sagittal and axial planes. COMPARISON: None FINDINGS: There is levoscoliosis of the lumbar spine the angle measures 28 degrees. T12-L1: Normal endplates. Normal disc height, hydration and morphology. Normal bilateral facet joints. Normal central canal and bilateral lateral recesses. Normal bilateral intervertebral neural foramina. Normal lumbar lordosis. There is no substantial scoliosis. Normal conus medullaris that terminates at the L1-2: Endplate spondylosis. Decreased disc height and small circumferential disc bulge. Degenerative changes of the bilateral facet joints. Mild narrowing of the central canal and bilateral intervertebral neural foramina. L2-3: Endplate spondylosis. Bilateral laminectomy Decreased disc height and small circumferential disc bulge. Degenerative changes of the bilateral facet joints. Mild narrowing of the right neural foramen. L3-4: Endplate spondylosis. Bilateral laminectomy Decreased disc height and small circumferential disc bulge. Degenerative changes of the bilateral facet joints. Mild narrowing of the bilateral intervertebral neural foramina. L4-5: Endplate spondylosis. Bilateral laminectomy Decreased disc height and small circumferential disc bulge. Degenerative changes of the bilateral facet joints. Moderate narrowing of the left neural foramen. L5-S1: Endplate spondylosis. Bilateral laminectomy Decreased disc height and small circumferential disc bulge. Degenerative changes of the bilateral facet joints. Moderate narrowing of the left neural foramen. Normal visualized sacral ala. Normal visualized paraspinous soft tissue structures. MRI/Spine Lumbar (Routine) IMPRESSION: Multilevel degenerative changes, as described above. Electronically Signed: Natalie Torres, at 6:35 EDT Tel , Service support ,
== END | disposition home or self-care (01) ==
LOC: MRI 17:37
PROVIDERS: Family Provider Family Medicine; PCP Family Medicine; Referring Provider Physician Assistant; Visit Provider Physician Assistant
DX: M54.16 Radiculopathy, lumbar region (principal)
CPT/HCPCS: 72148

== ENCOUNTER → 2019-01-23 | Outpatient (CLI) | payer MEDICARE, SELFPAY ==
[2018-12-25 06:42] VITALS: BMI 39.3
[2019-01-23 11:33] LABS: AST(SGOT) 25 U/L (15-37); Alanine Aminotransfer ALT/SGPT 34 U/L (16-61); Anion Gap 8 (5-15); BUN 19 mg/dL (7-18); BUN/Creat Ratio 15.3 RATIO (10-20); Calcium,Total 9.1 mg/dL (8.5-10.1); Chloride 106 mmol/L (98-107); Cholesterol 153 mg/dL (200); Creatinine, Serum 1.24 mg/dL (0.70-1.30); EST Glomerular Filtration Rate 59 mL/min (>60); Est Glom Filt Rate - Afr Amer 72 mL/min (>60); Glucose 127 mg/dL (74-106); High Density Lipoprotein 39 mg/dL; Potassium 4.1 mmol/L (3.5-5.1); Sodium Level 142 mmol/L (136-145); Triglycerides 182 mg/dL; Very Low Density Lipoprotein 36 mg/dL (5-40)
[2019-01-23 11:40] LABS: Hemoglobin A1c 6.8 % (4.2-6.3)
== END | disposition home or self-care (01) ==
LOC: LAB 10:00
PROVIDERS: Family Provider Family Medicine; PCP Family Medicine; Referring Provider Internal Medicine Endocrinology, Diabetes & Metabolism; Visit Provider Internal Medicine Endocrinology, Diabetes & Metabolism
DX: E11.9 Type 2 diabetes mellitus without complications (principal); E78.2 Mixed hyperlipidemia
CPT/HCPCS: 36415; 80048; 80061; 83036; 84450; 84460

== ENCOUNTER → 2019-02-19 | Outpatient (CLI) | payer MEDICARE, SELFPAY ==
[2019-02-07 09:17] VITALS: BMI 39.3
== END | disposition home or self-care (01) ==
LOC: SL 11:37
PROVIDERS: Family Provider Family Medicine; PCP Family Medicine; Referring Provider Nurse Practitioner Acute Care; Visit Provider Nurse Practitioner Acute Care
DX: G47.30 Sleep apnea, unspecified (principal)
CPT/HCPCS: 98960; G0463

== ENCOUNTER → 2019-03-22 14:57 | Outpatient (CLI) | payer MEDICARE, SELFPAY ==
[2019-03-22 14:04] VITALS: BMI 40.3
[2019-03-22 17:01] LABS: Absolute Lymphocyte Count 1.55 X10^3/uL (0.83-4.51); Absolute Neutrophil Count 4.7 X10^3/uL (2.0-7.7); Basophil# 0.05 X10^3/uL; Basophil% 0.7 % (0-1); Eosinophil# 0.18 X10^3/uL; Eosinophils% 2.5 % (0-5); Hemoglobin 13.4 g/dL (13.0-16.5); Lymphocyte # 1.55 X10^3/ul (4.0); Lymphocyte % 21.3 % (19-41); Mean Corp Hgb Conc 31.2 g/dL (32-36); Mean Corpuscular Hgb 26.8 pg (27.0-32.0); Mean Platelet Vol. 9.5 fl (6.2-12.0); Monocyte# 0.63 X10^3/uL; Monocyte% 8.7 % (0-10); NRBC Flagged by Analyzer 0 % (0-5); Neutrophil # 4.74 X10^3/uL (2.7-7.7); Neutrophil % 65.1 % (47-70); Platelet Count 270 K/mm3 (150-450); White Blood Count 7.3 K/mm3 (4.4-11.0)
[2019-03-22 17:27] LABS: Anion Gap 7 (5-15); BUN 24 mg/dL (7-18); BUN/Creat Ratio 15.7 RATIO (10-20); Calcium,Total 10.3 mg/dL (8.5-10.1); Chloride 100 mmol/L (98-107); Creatinine, Serum 1.53 mg/dL (0.70-1.30); EST Glomerular Filtration Rate 47 mL/min (>60); Est Glom Filt Rate - Afr Amer 56 mL/min (>60); Glucose 82 mg/dL (74-106); Potassium 3.8 mmol/L (3.5-5.1); Sodium Level 138 mmol/L (136-145); Thyroid Stim Hormone (TSH) 2.57 uIU/mL (0.358-3.74)
== END ==
PROVIDERS: Family Provider Family Medicine; PCP Family Medicine; Referring Provider Physician Assistant Medical; Visit Provider Physician Assistant Medical
DX: G47.33 Obstructive sleep apnea (adult) (pediatric) (principal); E11.9 Type 2 diabetes mellitus without complications; R00.2 Palpitations
CPT/HCPCS: 36415; 80048; 84443; 85025

== ENCOUNTER → 2019-03-25 11:12 | Outpatient (CLI) | payer MEDICARE, SELFPAY ==
[2019-03-22 14:04] VITALS: BMI 40.3
== END ==
PROVIDERS: Family Provider Family Medicine; PCP Family Medicine; Referring Provider Physician Assistant Medical; Visit Provider Physician Assistant Medical
DX: R00.2 Palpitations (principal)
CPT/HCPCS: 93225; 93226

== ENCOUNTER → 2019-05-22 10:44 | Outpatient (CLI) | payer MEDICARE, SELFPAY ==
[2019-03-22 14:04] VITALS: BMI 40.3
[2019-05-22 11:51] LABS: Hemoglobin A1c 6.9 % (4.2-6.3)
[2019-05-22 11:57] LABS: AST(SGOT) 28 U/L (15-37); Alanine Aminotransfer ALT/SGPT 39 U/L (16-61); Anion Gap 7 (5-15); BUN 16 mg/dL (7-18); BUN/Creat Ratio 11.5 RATIO (10-20); Calcium,Total 8.9 mg/dL (8.5-10.1); Chloride 101 mmol/L (98-107); Creatinine, Serum 1.39 mg/dL (0.70-1.30); EST Glomerular Filtration Rate 52 mL/min (>60); Est Glom Filt Rate - Afr Amer 63 mL/min (>60); Glucose 242 mg/dL (74-106); Potassium 3.8 mmol/L (3.5-5.1); Sodium Level 137 mmol/L (136-145)
== END ==
PROVIDERS: Family Provider Family Medicine; PCP Family Medicine; Referring Provider Internal Medicine Endocrinology, Diabetes & Metabolism; Visit Provider Internal Medicine Endocrinology, Diabetes & Metabolism
DX: E11.9 Type 2 diabetes mellitus without complications (principal)
CPT/HCPCS: 36415; 80048; 83036; 84450; 84460

== ENCOUNTER 2019-06-22 12:59 | Emergency (ER) | payer MEDICARE, SELFPAY ==
[2019-03-22 14:04] VITALS: BMI 40.3
[2019-06-22 13:00] VITALS: BP 159/100; PULSE 68; RESP 24; TEMP 35.7; O2SAT 97; BMI 40.5
[2019-06-22 13:07] VITALS: O2SAT 96
--- NOTE | 2019-06-22 13:36 | ED.DCSUM_ITS ---
History of Present Illness Chief Complaint: Shortness of Breath Informant: Patient Onset: Yesterday Current Severity: Mild Maximum Severity: Moderate Narrative: Patient presents secondary to shortness of breath. Symptoms started last evening. He has been using his albuterol inhaler without improvement. He denies chest pain or cough. He has not had leg swelling. Patient does use albuterol at home but is not able to tell me if he has COPD or asthma. - Past Medical History (1) Benign prostatic hypertrophy Status: Chronic (2) Coronary artery disease Status: Chronic (3) Diabetes mellitus Status: Chronic (4) 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 Status: Chronic (5) GERD (gastroesophageal reflux disease) Status: Chronic (6) HLD (hyperlipidemia) Status: Chronic (7) Hiatal hernia Status: Chronic (8) Hypertension Status: Chronic (9) Hypothyroid Status: Chronic (10) Nephrolithiasis Status: Chronic (11) Nonrheumatic tricuspid (valve) insufficiency Status: Chronic (12) DANYELL (obstructive sleep apnea) Status: Chronic (13) S/P PTCA (percutaneous transluminal coronary angioplasty) Status: Chronic Comment: PTCA/RUDDY to proximal/ostial LAD 07/01/2015 (14) Status post angioplasty with stent Status: Chronic Comment: 06/30/15, [facility], transferred to [facility] for PTCA & RUDDY to proximal/ostial LAD done 07/01/15 Past Medical History - Allergies and Home Meds Allergies/Adverse Reactions: Allergies losartan Adverse Reaction (Intermediate, Verified 06/22/19 13:01) Jitters metoprolol Adverse Reaction (Intermediate, Verified 06/22/19 13:01) Jitters pioglitazone HCl [From Actos] Adverse Reaction (Verified 06/22/19 13:01) Upset Stomach Primary Care Physician: Soham Jones III, MD [Primary Care Provider] - Prior records reviewed: Yes Surgical History: angioplasty, - - lymph nodesw in chest and aorta accidentally nicked and had to have chest opened to repair it. Lives: Spouse/ Significant Other Smoking Status: Never smoker - Family History Maternal Family History: Family History (Last Reviewed 03/22/19 @ 14:55 by NEERAJ Bowman) Mother CAD (coronary artery disease) Brother CAD (coronary artery disease) Myocardial infarction Daughter Asthma Father Cancer Sister Breast cancer Sister Cardiomyopathy Family History: Reports: Heart Disease, Unknown, - Review of Systems General: Denies: Chills, Fever Eyes: Denies: Visual changes - bilaterally ENT: Denies: Bilateral ear pain Cardiovascular: Denies: Chest pain Respiratory: Reports: Dyspnea. Denies: Cough Gastrointestinal: Denies: Abdominal pain, Nausea, Vomiting, Diarrhea Genitourinary: Denies: Dysuria Musculoskeletal: Denies: Swelling Skin: Denies: Rash Neurological: Denies: Headache Allergy: Denies: Uticaria Physical Exam Vital Signs/Narrative: Vital Signs Temp Pulse Resp BP Pulse Ox 06/22/19 13:00 96.3 F L 68 24 H 159/100 H 97 Inital Vital Signs reviewed: Yes General: Well nourished, Well developed Head: Normocephalic ENT: Moist mucous membranes Neck: Supple Cardiovascular: Regular rate, Regular rhythm Respiratory: No distress, CTA bilaterally Abdomen: Soft, Nontender Extremities: No edema Skin: Normal color, No rash Neurological: Alert, Oriented x3 Psychological: Normal affect Diagnostic/Tx/Re-eval Impressions Chest X-Ray 06/22/19 13:36 IMPRESSION: 1. No acute cardiopulmonary process. Electronically Signed: Rakesh Rolle MD (Brooks) at 14:00 EST , Service support , 06/22/19 13:36 Chest PA and Lateral [RAD] Stat Laboratory Results 06/22/19 06/22/19 06/22/19 13:30 13:30 13:30 WBC 5.2 RBC 4.47 L Hgb 12.0 L Hct 38.2 L MCV 85.5 MCH 26.8 L MCHC 31.4 L RDW Std Deviation 47.1 H RDW Coeff of Perla 15.1 H Plt Count 239 MPV 9.6 Immature Gran % (Auto) 0.600 Neut % (Auto) 61.3 Lymph % (Auto) 24.2 Bond % (Auto) 10.0 Eos % (Auto) 2.9 Baso % (Auto) 1.0 Absolute Neuts (auto) 3.2 Absolute Lymphs (auto) 1.26 Nucleated RBC % 0 D-Dimer Quant (PE/DVT) 0.40 Sodium 135 L Potassium 4.1 Chloride 100 Carbon Dioxide 24.0 Anion Gap 11 BUN 17 Creatinine 1.69 H Estim Creat Clear Calc 28.70 Est GFR (MDRD) Af Amer 50 L Est GFR (MDRD) Non-Af 42 L BUN/Creatinine Ratio 10.1 Glucose 214 H Calcium 9.5 Troponin I < 0.015 B-Natriuretic Peptide 06/22/19 13:30 WBC RBC Hgb Hct MCV MCH MCHC RDW Std Deviation RDW Coeff of Perla Plt Count MPV Immature Gran % (Auto) Neut % (Auto) Lymph % (Auto) Bond % (Auto) Eos % (Auto) Baso % (Auto) Absolute Neuts (auto) Absolute Lymphs (auto) Nucleated RBC % D-Dimer Quant (PE/DVT) Sodium Potassium Chloride Carbon Dioxide Anion Gap BUN Creatinine Estim Creat Clear Calc Est GFR (MDRD) Af Amer Est GFR (MDRD) Non-Af BUN/Creatinine Ratio Glucose Calcium Troponin I B-Natriuretic Peptide 44.7 - EKG Initial EKG Interpretation: Sinus Rhythm - Sinus at 91 with bifascicular block. - Medical Decision Making Patient's lung sounds were clear here. He was observed while awaiting work-up. On repeat evaluation he states he feels much better. At this time his lungs remain clear and his O2 sats are in the high 90s. Test results were discussed with patient and at bedside. He is encouraged to return if symptoms worsen, but at this time I see no indication for further treatment or admission. ED Disposition - Plan for ED Patient: Disposition: Home or Assisted Living Diagnosis: Dyspnea Instructions: ED Dyspnea Referrals: Soham Jones III, MD [Primary Care Provider] - As Needed
--- NOTE | 2019-06-22 13:36 | EKG12_ITS ---
Test Reason : SOB Blood Pressure : / mmHG Vent. Rate : 091 BPM Atrial Rate : 091 BPM P-R Int : 148 ms QRS Dur : 140 ms QT Int : 386 ms P-R-T Axes : 058 -57 037 degrees QTc Int : 474 ms Sinus rhythm with Premature atrial complexes Right bundle branch block Left anterior fascicular block Bifascicular block Abnormal ECG Confirmed by GÉNESIS GUTIÉRREZ, JENNIFER ([id number]), graphics editor ONDIAN LE ([id number]) on 06/25/2019 8:48:25 AM Referred By: UBALDO Confirmed By:JENNIFER CAPPS MD
--- NOTE | 2019-06-22 13:36 | RAD_ITS ---
STUDY: X-RAY CHEST REASON FOR EXAM: Male, 83 years old. SOB since last night TECHNIQUE: PA and lateral views of the chest. COMPARISON: None. FINDINGS: Sternal wires and mediastinal surgical clips compatible with prior CABG. The lungs are clear and expanded. There is no demonstrated pleural abnormality. Normal size heart. Sternal wires and mediastinal surgical clips compatible with prior CABG. Normal mediastinum and connie. Normal visualized pulmonary arteries. There is atherosclerotic calcification of the aortic arch with tortuosity. There are diffuse degenerative changes of the visualized thoracic spine. Fusion hardware of the lumbar spine partially visualized. There chronic appearing deformities of the bilateral ribs. There is no demonstrated abnormality of the visualized soft tissue structures of the upper abdomen. RAD/Chest PA and Lateral IMPRESSION: 1. No acute cardiopulmonary process. Electronically Signed: Rakesh Rolle MD (Brooks) at 14:00 EST , Service support ,
[2019-06-22 13:50] LABS: Absolute Lymphocyte Count 1.26 X10^3/uL (0.83-4.51); Absolute Neutrophil Count 3.2 X10^3/uL (2.0-7.7); Basophil# 0.05 X10^3/uL; Eosinophil# 0.15 X10^3/uL; Eosinophils% 2.9 % (0-5); Hematocrit 38.2 % (40-54); Lymphocyte # 1.26 X10^3/ul (4.0); Lymphocyte % 24.2 % (19-41); Mean Corp Hgb Conc 31.4 g/dL (32-36); Mean Corpuscular Hgb 26.8 pg (27.0-32.0); Mean Corpuscular Volume 85.5 fL (80-94); Mean Platelet Vol. 9.6 fl (6.2-12.0); Monocyte# 0.52 X10^3/uL; NRBC Flagged by Analyzer 0 % (0-5); Neutrophil % 61.3 % (47-70); Platelet Count 239 K/mm3 (150-450); RBC Distribution Width CV 15.1 % (11.6-14.6); RBC Distribution Width SD 47.1 fl (35.1-43.9); Red Blood Count 4.47 M/mm3 (4.6-6.2); White Blood Count 5.2 K/mm3 (4.4-11.0)
[2019-06-22 14:09] LABS: Anion Gap 11 (5-15); BUN 17 mg/dL (7-18); BUN/Creat Ratio 10.1 RATIO (10-20); Calcium,Total 9.5 mg/dL (8.5-10.1); Chloride 100 mmol/L (98-107); Creatinine, Serum 1.69 mg/dL (0.70-1.30); EST Glomerular Filtration Rate 42 mL/min (>60); Est Glom Filt Rate - Afr Amer 50 mL/min (>60); Glucose 214 mg/dL (74-106); Potassium 4.1 mmol/L (3.5-5.1); Sodium Level 135 mmol/L (136-145)
[2019-06-22 14:22] LABS: BNP,B-Type NATRIURETIC PEPTIDE 44.7 pg/mL (0-100)
[2019-06-22 15:00] VITALS: BP 128/98; PULSE 93; RESP 21; O2SAT 95
[2019-06-22 16:00] VITALS: BP 117/86; PULSE 77; RESP 16; O2SAT 96
== END 2019-06-22 16:02 | disposition home or self-care (01) ==
PROVIDERS: Emergency Provider Emergency Medicine; Family Provider Family Medicine; PCP Family Medicine
DX: R06.00 Dyspnea, unspecified (principal); I45.2 Bifascicular block; N40.0 Benign prostatic hyperplasia without lower urinary tract symptoms; I25.10 Atherosclerotic heart disease of native coronary artery without angina pectoris; E11.9 Type 2 diabetes mellitus without complications; I42.0 Dilated cardiomyopathy; K21.9 Gastro-esophageal reflux disease without esophagitis; E78.5 Hyperlipidemia, unspecified; K44.9 Diaphragmatic hernia without obstruction or gangrene; I36.1 Nonrheumatic tricuspid (valve) insufficiency; I10 Essential (primary) hypertension; E03.9 Hypothyroidism, unspecified; G47.33 Obstructive sleep apnea (adult) (pediatric); Z87.442 Personal history of urinary calculi; Z95.5 Presence of coronary angioplasty implant and graft; Z79.4 Long term (current) use of insulin; Z79.82 Long term (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 of aspirin; Z79.84 Long term (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 of oral hypoglycemic drugs; Z79.899 Other long term (current) drug therapy
CPT/HCPCS: 71046; 80048; 83880; 84484; 85025; 85379; 93005; 99284; A4216

== ENCOUNTER 2019-08-02 11:00 | Outpatient (RCR) | payer MEDICARE, SELFPAY ==
[2019-06-25 08:12] VITALS: BMI 40.8
--- NOTE | 2019-06-27 15:00 | SOAP_ITS ---
REASON FOR REFERRAL: The Patient is an 83 year old male referred for a clinical speech-language evaluation at [facility] / [facility] on 06/27/2018 due to persistent exercise / activity induced shortness of breath likely secondary to paradoxical vocal fold dysfunction following extensive workup by the Patients fire alarm mechanic (Dr. Americo Nazario). The Patient was accompanied by his , who provided additional information throughout the assessment. The Patient reports his symptoms have occur somewhat sporadically over the past 3-4 years, with significant episodes occurring between 2-3 times per year (lasting hours to days) with approximately 4-5 milder episodes (no more than a few hours), with the Patient reporting difficulty inhaling vs. exhaling paired with globus sensation and chest tightness (before and during episode), along with intermittent mild coughing. Both report that the Patient has been struggling with anxiety, with a likely correlation between his anxiety and symptom onset (stated the most recent episode leading to ER workup was preceded by hearing that his grandson would soon be deployed to [place]). Neither feel as though the Patient is necessarily ?high strung? or a ?type A? personality, though he does tend to ?bottle up? emotions rather than express them. Both report an uptake in coughing / suspected allergy associated symptoms this year, along with issues with dust (when he was at work), with no formal workup regarding allergies reported. He does not note a correlation with chemical exposure and / or strong odors. He does report occasional symptom onset at night while sleeping / while lying down, and reports he has been treated for gastroesophageal reflux for over 10 years (Protonix), with no recent adjustments reported. He has been treated for asthma, with no benefit from nebulizer use. He does not believe there is a direct association with exercise, though was noted to demonstrate difficulty with inhalation paired with shortness of breath while ambulating to the therapy room. 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 MEDICAL HISTORY: Obstructive sleep apnea necessitating nocturnal BiPAP therapy, chronic dyspnea, chronic shortness of breath, chronic cough, gastroesophageal reflux disease, anxiety, coronary artery disease, atherosclerotic heart disease of [place] coronary artery without angina pectoris, dilated cardiomyopathy, nonrheumatic tricuspid (valve) insufficiency, hypertension, hyperlipidemia, hypothyroid, benign prostatic hypertrophy, nephrolithiasis, class III severe obesity, type II diabetes mellitus. MEDICATIONS: Levothyroxine [Synthroid] 50 mcg PO DAILY Pravastatin [Pravachol] 20 mg PO DAILY Metformin HCl [Glucophage] 1,000 mg PO BIDCM Cholecalciferol (Vitamin D3) [Vitamin D3] 5,000 unit PO DAILY Finasteride [Proscar] 5 mg PO DAILY Insulin NPH/Reg 70/30 [Novolin 70/30] 50 units SC BREAKFAST Pantoprazole Sodium [Protonix] 40 mg PO DAILY Aspirin [Adult Low Dose Aspirin EC] 81 mg PO DAILY Insulin human U-100 NPH-regulr 70-30 mix 100 unit/mL subcutaneous Amlodipine 5 mg tablet 5 mg PO DAILY Furosemide 40 mg tablet 40 mg PO DAILY Albuterol sulfate 2.5 mg INHALATION Q4H PRN #180 ml Albuterol sulfate 90 mcg/actuation aerosol inhaler 2 inh INHALATION Q4H Isosorbide mononitrate 30 mg tablet,extended release 24 hr 30 mg PO DAILY Acetaminophen [Tylenol Extra Strength] 500 mg PO Q6H PRN Clopidogrel 75 mg tablet 75 mg PO DAILY ADDITIONAL OBJECTIVE ASSESSMENT RESULTS: 06/22/2018 chest x-ray revealed no acute cardiopulmonary process. 06/02/[address] revealed no central or segmental pulmonary embolism; no thoracic aortic dissection; stable hiatal hernia; stable hepatic cyst; status post CABG, left thoracotomy; stable pleural and parenchymal fibrotic changes. 03/08/2016 pulmonary functions test found to be grossly within normal limits; diffusion capacity is at the lower limit of normal and may indicate early emphysema versus pulmonary vascular disorder. 06/14/2016 sleep study revealed severe obstructive sleep apnea syndrome. ORAL MOTOR / MODIFIED CRANIAL NERVE ASSESSMENT: CNV, VII, IX, X, and XII appear grossly intact. Natural lower dentition with multiple missing teeth; upper dentures in place, adequate fit. Moist pinkish appearance to the oral mucosa without xerostomia. No signs or symptoms of trismus. Appropriate volitional cough intensity. Appropriate vocal quality without apparent detrimental non-phonatory behaviors (claviclular breathing, stridor, chronic throat clearing / coughing). FUNCTIONAL STATUS ASSESSMENT RESULTS: Generalized Anxiety Disorder 7-item (HOLGER-7) scale: 14 (moderate risk of anxiety disorder) Patient Health Questionnaire (PHQ-9): 14 (moderate risk of depression) Functional Ambulation Category (FAC): 4 (independent - level surfaces only) CLINICAL ASSESSMENT OF VOCAL CORD FUNCTIONING (QUANTITATIVE): Reflux Symptom Index (RSI): 31 (>13 may indicate significant reflux) Vocal Cord Dysfunction Questionnaire (VCD-Q): 44 /60 [place] Laryngeal Hypersensitivity Questionnaire (NLHQ): (lower = worse) Abnormal Sensation: 3 Phlegm & Mucous: 2 Pain in Throat: 7 Globus Sensation: 4 Throat Feels Blocked: 3 Throat Feels Tight: 2 Irritation in Throat: 3 Pushing Sensation / Chest: 3 Pushing Sensation / Throat: 4 Feeling of Constriction: 3 Food Catchin Tickle in Throat: 3 Itch in Throat: 4 Hot / Burning Sensation: 5 TOTAL OBSTRUCTION SCORE: 28 AVERAGE OBSTRUCTION SCORE: 3.5 TOTAL PAIN / THERMAL SCORE: 15 AVERAGE PAIN / THERMAL SCORE: 5 TOTAL THROAT TICKLE SCORE: 9 AVERAGE THROAT TICKLE SCORE: 3 TOTAL SCORE: 11.5 CLINICAL ASSESSMENT OF VOCAL CORD FUNCTION (QUALITATIVE): Type of Stridor/Breathing Difficulty Inspiratory: yes Expiratory: no Biphasic (inspiratory & expiratory): no Pattern of Stridor/Breathing Difficulty Continuous (all of the time) day & night: yes Continuous daytime only not at night: no Intermittent attacks lasting [id number]: no Intermittent attacks lasting [id number]: yes Intermittent attacks lasting several days: no Triggers (Timing and/or Associated Activities) After meals (eating/drinking): no Awakens from sleep: yes Associated with exercise: no Associated with stress: yes Associated with certain odors: no Associated Symptoms Hoarseness: no Chest tightness: yes Cough: yes Dysphagia: no Globus sensation: yes Heartburn: no Regurgitation: no Throat tightness: yes Specific Relevant Past Medical History Allergies and/or asthma: no Brain tumor: no Haldol or other phenothiazine: no Head injury: no Laryngeal or non-laryngeal dystonia: no LPR and/or GERD: yes Psychiatric disorder: yes Stroke: no Vocal fold paralysis: no General Examination / Observations Breathy and/or hoarse vocal quality: no Inspiratory/biphasic stridor during respiration/speech: no Reduced breath support or control: no Musculoskeletal tension of the head and neck: yes Throat tightness/choking/breathing problem during: Alternating / i / - sniff: no Rapid in-and-out breathing: yes Cough/throat clear/chuckle, then deep breath: no Rapid and loud counting: no Smelling a strong perfume or chemical: no Running in place: yes RESULTS OF THE EVALUATION: The Patient presents with reported signs and symptoms of 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 RECOMMENDATIONS FOR INTERVENTION: Recommend continued skilled speech-language intervention 1x per week for upwards of 10 weeks with a licensed speech-language pathologist targeting training and implementation of recommended compensatory respiratory strategies and laryngeal control exercises to reduce / eliminate the effects of paradoxical vocal fold dysfunction. FUNCTIONAL OUTCOMES: OUTCOME 1: the Patient with independently demonstrate and utilize recommended compensatory breathing techniques during both structured therapeutic activities and during acute breathing episodes to facilitate improved airway functioning and decreased anxiety at the independent level, across 2 out of 3 sessions. OUTCOME 2: goal adjustment as needed John Fernandez M.A., CCC-LOAN [employer], CBIS MBSImP Certified, LSVT Certified [facility] Speech-Language Pathology Department [email or web address]
--- NOTE | 2019-08-02 12:07 | HP.SP.DC ---
ST Discharge Summary - Discharged: Discharge: The Patient is an 83 year old male who attended 4 skilled speech-language intervention sessions spanning from 06/27/2019 to 08/02/2019 due to persistent exercise / activity induced shortness of breath likely secondary to paradoxical vocal fold dysfunction following extensive workup by the Patients civil engineering project manager (Dr. Americo Nazario). The Patient participated in intervention sessions consisting of training and implementation of recommended compensatory respiratory strategies and laryngeal control exercises to reduce / eliminate the effects of paradoxical vocal fold dysfunction. The Patient demonstrated immediate improvement following training and implementation of selected compensatory strategies (particularly the volitional yawn prior to symptom onset), with significant improvements in symptomology identification and preventative management following education. All therapeutic goals have been met, with recommendations made to discharge from the skilled speech-language pathology caseload at this time, though we would gladly re-initiate intervention as needed moving forward.
== END 2019-08-02 12:45 | disposition home or self-care (01) ==
LOC: SP 11:00
PROVIDERS: Family Provider Family Medicine; PCP Family Medicine; Referring Provider Internal Medicine Critical Care Medicine; Visit Provider Internal Medicine Critical Care Medicine
DX: J38.3 Other diseases of vocal cords (principal)
CPT/HCPCS: 92507; 92524

== ENCOUNTER → 2020-01-20 09:13 | Outpatient (CLI) | payer MEDICARE, SELFPAY ==
[2019-09-30 11:18] VITALS: BMI 40.1
[2020-01-20 10:08] LABS: Microalbumin,Random Urine 6.2 mg/L (NO RANGE EST.); Microalbumin:Creatinine Ratio 14.7 mg/g CRE (<30 mg/g CRE)
[2020-01-20 10:19] LABS: AST(SGOT) 20 U/L (15-37); Alanine Aminotransfer ALT/SGPT 34 U/L (16-61); Anion Gap 7 (5-15); BUN 18 mg/dL (7-18); BUN/Creat Ratio 12.7 RATIO (10-20); Calcium,Total 9.7 mg/dL (8.5-10.1); Chloride 102 mmol/L (98-107); Cholesterol 158 mg/dL (200); Creatinine, Serum 1.42 mg/dL (0.70-1.30); EST Glomerular Filtration Rate 51 mL/min (>60); Est Glom Filt Rate - Afr Amer 61 mL/min (>60); Glucose 115 mg/dL (74-106); High Density Lipoprotein 43 mg/dL; Potassium 4.1 mmol/L (3.5-5.1); Sodium Level 137 mmol/L (136-145); Triglycerides 176 mg/dL; Very Low Density Lipoprotein 35 mg/dL (5-40)
[2020-01-20 10:22] LABS: Hemoglobin A1c 7.1 % (3.8-5.6)
== END ==
PROVIDERS: PCP Family Medicine; Referring Provider Internal Medicine Endocrinology, Diabetes & Metabolism; Visit Provider Internal Medicine Endocrinology, Diabetes & Metabolism
DX: E11.9 Type 2 diabetes mellitus without complications (principal); E78.2 Mixed hyperlipidemia
CPT/HCPCS: 36415; 80048; 80061; 82043; 82570; 83036; 84450; 84460

== ENCOUNTER 2020-02-04 05:10 | Emergency (ER) | payer MEDICARE, SELFPAY ==
[2019-09-30 11:18] VITALS: BMI 40.1
[2020-02-04 05:11] VITALS: BP 150/135; PULSE 118; RESP 18; TEMP 35.9; O2SAT 96; BMI 41.6
--- NOTE | 2020-02-04 05:21 | RAD_ITS ---
STUDY: X-RAY - PELVIS AND LEFT HIP REASON FOR EXAM: Male, 84 years old. C/O LT HIP PAIN X 2-3 DAYS -- NKI TECHNIQUE: 3 views of the pelvis and hip. COMPARISON: 12/11/2013 FINDINGS: There are degenerative and postsurgical changes of the visualized lumbar spine. There are multiple large stable predominantly left calcified phleboliths. There is mild narrowing with cortical sclerosis and osteophyte formation of the sacroiliac joint consistent with mild degenerative osteoarthritic changes. Normal pubic symphysis. Normal bilateral ischial tuberosities. Normal visualized femoral head. There is osteoarthritic spur formation of the acetabular rim. There is mild articular joint space narrowing of the hip. RAD/HIP, UNI W/ Pelvis 2-3 Views IMPRESSION: Mild degenerative changes. There is no acute displaced fracture or dislocation. Other nonacute findings as outlined above. Electronically Signed: Colleen Chaidez MD at 5:46 EDT , Service support ,
[2020-02-04] MEDS: Morphine 4 MG/ML Syringe IM (05:25)
--- NOTE | 2020-02-04 05:25 | ED.VIS.GEN ---
History of Present Illness Chief Complaint: Lower Extremity Injury Informant: Patient Narrative: stated for the last few days has had exacerbation of left hip pain. He stated he has chronic arthritis. He sees orthopedics Dr. Gayle no specific injury. Over the last 3 days however he has had increasing pain in the left hip with movement. Denies any abdominal pain testicular pain or genital pain. He stated it is musculoskeletal in the left hip. Current severity is moderate. He is using Tylenol intermittently. - Past Medical History (1) Atherosclerotic heart disease of [place] coronary artery without angina pectoris Status: Chronic (2) Essential (primary) hypertension Status: Chronic (3) HLD (hyperlipidemia) Status: Chronic (4) History of coronary artery stent placement Status: Chronic Comment: RUDDY to Prox-Mid LAD w/ 3.5 x 20 Promus Stent done 07/01/15 (5) DANYELL (obstructive sleep apnea) Status: Chronic (6) Palpitations Status: Chronic (7) Premature ventricular contractions Status: Chronic (8) Right bundle branch block (RBBB) with left anterior fascicular block Status: Chronic (9) Vocal cord dysfunction Status: Suspected Past Medical History - Allergies and Home Meds Allergies/Adverse Reactions: Allergies losartan Adverse Reaction (Intermediate, Verified 02/04/20 05:17) Jitters metoprolol Adverse Reaction (Intermediate, Verified 02/04/20 05:17) Jitters pioglitazone HCl [From Actos] Adverse Reaction (Verified 02/04/20 05:17) Upset Stomach Primary Care Physician: Soham Jones III, MD [Primary Care Provider] - Prior records reviewed: Yes Past Medical History: - - See problem list Surgical History: angioplasty, - - lymph nodesw in chest and aorta accidentally nicked and had to have chest opened to repair it. Lives: With Family Smoking Status: Former smoker Alcohol: None Drugs: None - Family History Maternal Family History: Family History (Last Reviewed 09/30/19 @ 11:[address] Americo Nazario DO) Mother CAD (coronary artery disease) Brother CAD (coronary artery disease) Myocardial infarction Daughter Asthma Father Cancer Sister Breast cancer Sister Cardiomyopathy Family History: Reports: Heart Disease, Unknown, - Review of Systems General: Denies: Chills, Fever, Sweats Eyes: Denies: Visual changes - bilaterally, Diplopia ENT: Denies: Rhinorrhea, Sore throat Cardiovascular: Denies: Chest pain, Palpitations Respiratory: Denies: Dyspnea, Cough, Dyspnea on exertion Gastrointestinal: Denies: Abdominal pain, Nausea, Vomiting, Diarrhea, Melena, Hematochezia Genitourinary: Denies: Dysuria, Hematuria, Frequency Musculoskeletal: Reports: Extremity Pain. Denies: Back pain Skin: Denies: Rash, Wounds Neurological: Denies: Headache, Weakness, Numbness Physical Exam Vital Signs/Narrative: Vital Signs Temp Pulse Resp BP Pulse Ox 02/04/20 05:11 96.6 F L 118 H 18 150/135 H 96 General: Well nourished, Well developed, No Acute Distress Head: Normocephalic, Atraumatic Eyes: Perrl, EOMI ENT: Moist mucous membranes, No rhinorrhea Neck: Supple, Nontender Cardiovascular: Regular rate, Regular rhythm, No murmurs Respiratory: No distress, CTA bilaterally, Chest nontender Abdomen: Soft, Nontender, Nondistended, Normal bowel sounds Back: Nontender, Normal Inspection Extremities: Tenderness - Tenderness in the deep left hip region. No swelling or deformity. Decreased range of motion of the left hip secondary to pain. No bony step-off or deformity. Skin: Normal color, No rash Neurological: Alert, Oriented x3, Cranial nerves II-XII grossly intact, Normal Strength, Normal Sensation Psychological: Normal affect, Normal Mood Diagnostic/Tx/Re-eval - Medical Decision Making Given a dose of morphine. X-ray of the left hip obtained. Straight shows arthritic changes without acute fracture. Patient felt much better after treatment. I did offer him a steroid injection intramuscular. He would like to hold off and see his orthopedist. He has an appointment in 2 days. I feel this is reasonable and he will be given a couple days worth of narcotic Vicodin. I do feel this is secondary to hip pain arthritic likely as the cause ED Disposition - Plan for ED Patient: Disposition: Home or Assisted Living Diagnosis: Left hip pain Instructions: ED JOINT PAIN Prescriptions: Hydrocodone Bitart/Apap 5-325 [Woolwine 5MG-325MG] 1 tab PO Q6H PRN PRN 3 Days #10 tab PRN Reason: Pain Prescription Printed Referrals: Capo Gayle MD [STAFF PHYSICIAN] -
== END 2020-02-04 06:01 | disposition home or self-care (01) ==
PROVIDERS: Emergency Provider Emergency Medicine; PCP Family Medicine
DX: M25.552 Pain in left hip (principal); M16.12 Unilateral primary osteoarthritis, left hip; I10 Essential (primary) hypertension; E78.5 Hyperlipidemia, unspecified; I49.3 Ventricular premature depolarization; I44.4 Left anterior fascicular block; I45.10 Unspecified right bundle-branch block; I25.10 Atherosclerotic heart disease of native coronary artery without angina pectoris; G47.33 Obstructive sleep apnea (adult) (pediatric); Z95.5 Presence of coronary angioplasty implant and graft; Z79.4 Long term (current) use of insulin; Z79.82 Long term (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 of aspirin; Z79.02 Long term (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 of antithrombotics/antiplatelets; Z79.84 Long term (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 of oral hypoglycemic drugs; Z79.899 Other long term (current) drug therapy; Z87.891 Personal history of nicotine dependence
CPT/HCPCS: 73502; 96372; 99282

== ENCOUNTER 2020-02-07 21:44 | Observation (INO) | payer MEDICARE, SELFPAY ==
[2020-02-07 21:45] VITALS: BP 155/91; PULSE 85; RESP 23; TEMP 36.6; O2SAT 96; BMI 44.1
--- NOTE | 2020-02-07 21:58 | EKG12_ITS ---
Test Reason : SYNCOPE Blood Pressure : / mmHG Vent. Rate : 096 BPM Atrial Rate : 096 BPM P-R Int : 132 ms QRS Dur : 122 ms QT Int : 364 ms P-R-T Axes : 052 -63 039 degrees QTc Int : 459 ms Sinus rhythm with Premature atrial complexes Right bundle branch block Left anterior fascicular block Bifascicular block Abnormal ECG Confirmed by ABIMAEL GUTIÉRREZ, BRAXTON ([id number]), index editor ONDINA LE ([id number]) on 02/11/2020 8:58:00 AM Referred By: RATNA Confirmed By:VINCENT VARGHESE MD
[2020-02-07 22:08] LABS: Absolute Lymphocyte Count 1.87 X10^3/uL (0.83-4.51); Absolute Neutrophil Count 3.2 X10^3/uL (2.0-7.7); Basophil# 0.05 X10^3/uL; Basophil% 0.8 % (0-1); Eosinophil# 0.13 X10^3/uL; Eosinophils% 2.1 % (0-5); Hematocrit 37.9 % (40-54); Hemoglobin 11.9 g/dL (13.0-16.5); Lymphocyte # 1.87 X10^3/ul (4.0); Lymphocyte % 30.9 % (19-41); Mean Corp Hgb Conc 31.4 g/dL (32-36); Mean Corpuscular Volume 89.2 fL (80-94); Mean Platelet Vol. 9.1 fl (6.2-12.0); Monocyte# 0.73 X10^3/uL; Monocyte% 12.1 % (0-10); NRBC Flagged by Analyzer 0 % (0-5); Neutrophil # 3.22 X10^3/uL (2.7-7.7); Neutrophil % 53.3 % (47-70); Platelet Count 264 K/mm3 (150-450); RBC Distribution Width CV 16.4 % (11.6-14.6); RBC Distribution Width SD 53.2 fl (35.1-43.9); Red Blood Count 4.25 M/mm3 (4.6-6.2); White Blood Count 6.1 K/mm3 (4.4-11.0)
[2020-02-07 22:20] LABS: Anion Gap 10 (5-15); BUN 17 mg/dL (7-18); BUN/Creat Ratio 11.6 RATIO (10-20); Calcium,Total 9.5 mg/dL (8.5-10.1); Chloride 104 mmol/L (98-107); Creatinine, Serum 1.46 mg/dL (0.70-1.30); EST Glomerular Filtration Rate 49 mL/min (>60); Est Glom Filt Rate - Afr Amer 59 mL/min (>60); Estimated Creatinine Clearance 31.39 ml/min; Glucose 78 mg/dL (74-106); Potassium 4.1 mmol/L (3.5-5.1); Sodium Level 139 mmol/L (136-145)
--- NOTE | 2020-02-07 22:30 | CT_ITS ---
HISTORY: SYNCOPAL EPISODE TODAY, HIT HEAD. ON THINNERS LAC BEHIND EAR Technique:CT Head or Brain W/O Contrast Injection Number of Images including paperwork:266 Comparison: February 22, 2017 Findings: CT images of the head were obtained without contrast. Periventricular deep and subcortical white matter disease is present. Right parietal scalp contusion with blood in towels and/or dressings about the patient's head Paranasal sinuses are clear. The brain is atrophic. Calcific ASCVD involves intracranial arteries. No acute intracranial edema or hemorrhage. No acute abnormality of orbits. Middle ear cavities and mastoid air cells are well aerated. Skull is normal. CT/Brain/Head without Contrast IMPRESSION: No acute intracranial abnormality. Right parietal scalp contusion with likely blood in a towel or dressing about the head Chronic changes as above. ASPECT 10. Individualized dose optimization techniques were used for this CT. at 2300 Reported and signed by: Cliff Guerrero MD Electronically Signed: Cliff Guerrero MD at 22:59 EDT Tel , Service support ,
[2020-02-07] MEDS: Morphine 4 MG/ML Syringe IV (23:10)
[2020-02-07] MEDS: Ondansetron 4 MG/2 ML Vial IV (23:10)
[2020-02-07] MEDS: Diphth,Pertuss(Acell),Tet Vac 0.5 ML Vial IM (23:11)
[2020-02-07 23:56] VITALS: BP 84/58; PULSE 87; RESP 25; O2SAT 98
--- NOTE | 2020-02-07 23:57 | HP.PCM_ITS ---
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 transplanted heart: [place] heart Qualified Code(s): I25.10 - Atherosclerotic heart disease of [place] coronary artery without angina pectoris (6) History of coronary artery stent placement Status: Chronic Comment: RUDDY to Prox-Mid LAD w/ 3.5 x 20 Promus Stent done 07/01/15 (7) Essential (primary) hypertension Status: Chronic (8) HLD (hyperlipidemia) Status: Chronic Qualifiers: Hyperlipidemia type: pure hypercholesterolemia Qualified Code(s): E78.00 - Pure hypercholesterolemia, unspecified; E78.0 - Pure hypercholesterolemia (9) Vocal cord dysfunction Status: Inactive (10) DANYELL (obstructive sleep apnea) Status: Chronic History of Present Illness Date of Admission: 02/07/20 Chief Complaint: Syncope The patient is a 84 year old M with a significant history of hypertension; mara betjanine; CAD status post stents were presented to emergency department with syncope. Reportedly he passed out and fell in his garage. He denies any prodromal symptoms. Patient hit his head. His posterior occipital area was sutured at emergency department. Patient is on Plavix but he has stopped taking his Plavix since he is scheduled for shot for his right hip at the OR on 02/12/2020. Past Medical History Past Medical History (Chronic Problems): Chronic Problems (Last Reviewed 02/08/20 @ 00:[address] 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 (Chronic) Atherosclerotic heart disease of [place] coronary artery without angina pectoris (Chronic) History of coronary artery stent placement (Chronic 07/01/15) RUDDY to Prox-Mid LAD w/ 3.5 x 20 Promus Stent done 07/01/15 Essential (primary) hypertension (Chronic) HLD (hyperlipidemia) (Chronic) DANYELL (obstructive sleep apnea) (Chronic) Medical History: Medical History (Last Reviewed 02/08/20 @ 00:[address] 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) I45.2 Premature ventricular contractions (Chronic) I49.3 Atherosclerotic heart disease of [place] coronary artery without angina pectoris (Chronic) I25.10 Essential (primary) hypertension (Chronic) I10 HLD (hyperlipidemia) (Chronic) E78.5 Vocal cord dysfunction (Suspected) J38.3 DANYELL (obstructive sleep apnea) (Chronic) G47.33 BMI 40.0-44.9, adult Z68.41 Benign prostatic hypertrophy N40.0 Diabetes mellitus type 2 in obese E11.9, E66.9 GERD (gastroesophageal reflux disease) K21.9 Hiatal hernia K44.9 Hypothyroid E03.9 Nephrolithiasis Obesity E66.9 Anemia D64.9 Appendicitis (Resolved) K37 Chest pain (Resolved) R07.9 Cough (Resolved) R05 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 I42.0 Dyspnea (Resolved) R06.00 Right flank pain (Resolved) R10.9 Shortness of breath (Resolved) R06.02 Upper respiratory infection (Resolved) J06.9 Nonrheumatic tricuspid (valve) insufficiency (Ruled-out) I36.1 Allergies losartan Adverse Reaction (Intermediate, Verified 02/07/20 21:51) Jitters metoprolol Adverse Reaction (Intermediate, Verified 02/07/20 21:51) Jitters pioglitazone HCl [From Actos] Adverse Reaction (Verified 02/07/20 21:51) Upset Stomach Home Medications: Ambulatory Orders Medication Instructions Recorded Levothyroxine [Synthroid] 50 mcg PO DAILY 01/05/14 Pravastatin [Pravachol] 20 mg PO DAILY 01/05/14 metFORMIN HCl [Glucophage] 1,000 mg PO BIDCM 01/05/14 Cholecalciferol (Vitamin D3) 5,000 unit PO DAILY 06/29/15 [Vitamin D3] Finasteride [Proscar] 5 mg PO DAILY 06/29/15 Insulin NPH/Reg 70/30 [Novolin 50 units SC BREAKFAST 06/29/15 70/30] Pantoprazole Sodium [Protonix] 40 mg PO DAILY 06/29/15 Aspirin [Adult Low Dose Aspirin EC] 81 mg PO DAILY 07/24/15 insulin human U-100 NPH-regulr 40 unit SC DINNER ml 10/17/18 70-30 mix 100 unit/mL subcutaneous susp furosemide 40 mg tablet 40 mg PO DAILY #90 tab 02/20/19 isosorbide mononitrate 30 mg 30 mg PO DAILY #90 tab 04/15/19 tablet,extended release 24 hr Acetaminophen [Tylenol Extra 500 mg PO Q6H PRN PRN 06/22/19 Strength] clopidogrel 75 mg tablet 75 mg PO DAILY #90 tab 06/24/19 citalopram 10 mg tablet 10 mg PO DAILY tab 07/23/19 amlodipine 5 mg tablet See Rx Instructions .ROUTE 10/03/19 .COMPLEX #90 each Losartan Potassium [Cozaar] 100 mg PO DAILY 02/07/20 Surgical History: Surgical History (Last Reviewed 02/08/20 @ 00:[address] Arsenio Castro MD) History of coronary artery stent placement (Chronic) Onset Date: 07/01/15 Z95.5 RUDDY to Prox-Mid LAD w/ 3.5 x 20 Promus Stent done 07/01/15 History of appendectomy Z90.49 History of back surgery Z98.890 History of left heart catheterization Z98.890 History of lymph node biopsy Z98.890 History of right and left heart catheterization Onset Date: 07/02/18 Z98.890 Surgical History: angioplasty, - - lymph nodesw in chest and aorta accidentally nicked and had to have chest opened to repair it. Psychiatric History: - Smoking Status: Former smoker - *Family History Maternal Family History: Family History (Last Reviewed 02/08/20 @ 00:[address] Arsenio Castro MD) Mother CAD (coronary artery disease) Brother CAD (coronary artery disease) Myocardial infarction Daughter Asthma Father Cancer Sister Breast cancer Sister Cardiomyopathy History Items: Heart Disease, Unknown, - Review of Systems Constitutional: Denies: Chills, Fever, Weight Change HEENT: Denies: Head Aches, Sinus Congestion, Sinus Drainage Cardiovascular: Reports: Syncope. Denies: Chest Pain, Palpitations Respiratory: Denies: Cough, Shortness of breath at rest, Sputum production Gastrointestinal: Denies: Abdominal Pain, Nausea, Vomiting Genitourinary: Denies: Dysuria Musculoskeletal: Denies: Joint Pain, Joint Tenderness Skin: Denies: Rash, Wounds Neurological: Denies: Numbness, Tingling, Focal weakness Psychiatric: Denies: Anxiety, Depression, Homicidal Ideations, Suicidal Ideations Hematologic/ Lymphatic: Denies: Easy Bruising, Easy Bleeding VTE Information - Inpt Only VTE Present on Admission: No VTE Mechan Device Prophylaxis: SCD's VTE Pharm Prophylaxis ordered?: No Patient Problems: Active and Suspected Problems (Last Reviewed 02/08/20 @ 00:[address] Arsenio Castro MD) Syncope and collapse (Acute) - Physical Exam Vitals/I&O's: Vital Signs Temp Pulse Resp BP Pulse Ox 97.8 F 87 25 H 84/58 L 98 02/07/20 21:45 02/07/20 23:56 02/07/20 23:56 02/07/20 23:56 02/07/20 23:56 Oxygen Flow Rate (L/min) 3 Oxygen Delivery Method Nasal Cannula Weight: 113 kg Body Mass Index (BMI) 44.1 Finger Stick Blood Glucose 67 General: Alert, Oriented x3, Cooperative HEENT: Atraumatic, PERRLA, EOMI, Normocephalic, - - Right parietal occipital area with sutures. Neck: Supple, No JVD, Negative Carotid Bruits Lungs: Clear to auscultation, Normal air movement Cardiovascular: Regular rate, No murmurs Abdomen: Bowel Sounds Present, Soft, Non Tender Extremities: No edema, Capillary Refill Less than 3 Seconds Skin: No rashes, No breakdown Musculoskeletal: No Tenderness to Palpation of Joints or Extremities Neurological: Cranial nerves II-XII grossly intact Psych/Mental Status: Normal Affect, Appropriate Laboratory Results 02/07/20 21:50: WBC 6.1, RBC 4.25 L, Hgb 11.9 L, Hct 37.9 L, MCV 89.2, MCH 28.0, MCHC 31.4 L, RDW Std Deviation 53.2 H, RDW Coeff of Perla 16.4 H, Plt Count 264, MPV 9.1, Immature Gran % (Auto) 0.800, Neut % (Auto) 53.3, Lymph % (Auto) 30.9, [place] % (Auto) 12.1 H, Eos % (Auto) 2.1, Baso % (Auto) 0.8, Absolute Neuts (auto) 3.2, Absolute Lymphs (auto) 1.87, Nucleated RBC % 0 02/07/20 21:50: Sodium 139, Potassium 4.1, Chloride 104, Carbon Dioxide 25.0, Anion Gap 10, BUN 17, Creatinine 1.46 H, Estim Creat Clear Calc 31.39, Est GFR (MDRD) Af Amer 59 L, Est GFR (MDRD) Non-Af 49 L, BUN/Creatinine Ratio 11.6, Glucose 78, Calcium 9.5, Troponin I < 0.015 Current Medications Sodium Chloride () 500 mls @ 999 mls/hr IV .Q31M SHARON Stop: 02/08/20 00:15 Last Admin: 02/07/20 23:56 Dose: 999 mls/hr Documented by: Assessment/Plan All Active Problems (Last Reviewed 02/08/20 @ 00:[address] Arsenio Castro MD) Syncope and collapse (Acute) Appendicitis (Resolved) Chest pain (Resolved) Cough (Resolved) Dyspnea (Resolved) Right flank pain (Resolved) Shortness of breath (Resolved) Upper respiratory infection (Resolved) Nonrheumatic tricuspid (valve) insufficiency (Ruled-out) The patient is a 84 year old M with a significant history of hypertension; diabetes; CAD status post stents were presented to emergency department with syncope and collapse Syncope collapse EKG showed bifascicular block unchanged from EKG in 2018 We will get an echocardiogram Orthostatic vitals Received normal saline 500 mL's bolus at emergency department because of hypotension We will put patient on gentle NSS of 75 mL's per hour. Hypotension Likely secondary to blood loss IV fluids bolus received at emergency department. Gentle IV hydration as above Stop all home blood pressure medications. Trend blood pressures. Trend CBC Blunt trauma Secondary to fall. Sutured at the emergency department Suture removal will be due in 1 week time Received tetanus shot at emergency department. Acute blood loss anemia Initial hemoglobin at emergency department was 11.9. Trended to 9.8. Patient was typed and crossed at the emergency department Repeat CBC in a.m. Right hip pain PRN oxycodone ordered. DVT prophylaxis SCD OBSV E&M: [id number] Initial observation care L3
[2020-02-08] VITALS (17 sets, daily range): BP systolic 102–139; BP diastolic 57–76; PULSE 52–104; RESP 14–20; TEMP 36.2–37.3; O2SAT 92–99; BMI 40.4
--- NOTE | 2020-02-08 | RAD_ITS ---
HISTORY: Fall. Left hip pain. Exam is AP pelvis and 2 views of the left hip. Comparison study is from February 04, 2020. Clinical history at that time was left hip pain for 2-3 days. Findings: Posterior spinal fixation surgery and laminectomies have been performed. Pelvic phleboliths. Bilateral hip arthritis. No acute hip fracture perceived. No dislocation demonstrated. Pubic rami appear to be intact. Sclerosis of the pubic symphysis is chronic. Some calcific atherosclerotic disease. RAD/HIP, UNI W/ Pelvis 2-3 Views IMPRESSION: No acute left hip fracture perceived at 0036 Reported and signed by: Cliff Guerrero MD Electronically Signed: Cliff Guerrero MD at 0:35 EDT Tel , Service support ,
[2020-02-08 00:09] LABS: Hematocrit 31.4 % (40-54); Hemoglobin 9.8 g/dL (13.0-16.5)
--- NOTE | 2020-02-08 00:44 | ED.RN ---
ortho not done due to pt getting very dizzy and I feel like i'm going to pass out. Dr. Guzman aware, No new orders at this time, pt is resting in a position of comfort with no further needs at this time.
[2020-02-08] MEDS: 0.9% Normal Saline 1,000 ML 75 ML IV ×2 (01:39→14:37)
[2020-02-08] MEDS: Acetaminophen 325 MG Tablet 650 MG PO ×3 (01:52→20:57)
[2020-02-08] MEDS: oxyCODONE 5 MG Tablet PO ×3 (01:52→20:56)
--- NOTE | 2020-02-08 03:25 | ED.DCSUM_ITS ---
- ER Visit Summary Date of Service: 02/08/20 Chief Complaint: Syncope History of Present Illness: The patient is a [address] Ashton and Dr. Soham Jones. He reports that he got in the car and had a syncopal episode. He denies any preceding symptoms. He was not lightheaded. No chest pain or abdominal pain. No palpitations or shortness of breath. Patient clearly hit his head. He is unsure when his last tetanus shot was. Patient denies any neck or back pain. He denies shoulder or wrist pain. He reports he has left hip pain is 8 of 10 severity. Says sharp pain. However, he states that he had this pain before his fall. He reports that he stopped taking his Plavix 2 days ago because he is scheduled to have a shot in the hip by Dr. Gayle in 5 days. Review of systems: General: No fever, chills, cold sweats. Cardiovascular: No chest pain, palpitations. Respiratory: No cough, shortness of breath, dyspnea on exertion. Gastrointestinal: No abdominal pain, nausea, vomiting, diarrhea, melena, or hematochezia. Genitourinary: No dysuria, frequency, hematuria. Skin: No rash. Neuro: No headache, numbness, weakness. Physical Examination: Vitals: Stable. Afebrile. Head: 2 cm laceration right parietal scalp with venous involvement and a large amount of bleeding. Neck: No vertebral tenderness. Full ROM without difficulty. Cleared by NEXUS criteria. Back: No vertebral tenderness. General: A&O x 3. NAD. Cardiovascular exam: Regular rate and rhythm, no murmur, rub or gallop. Respiratory exam: Chest nontender. No crepitus. Clear to auscultation bilaterally. No wheezes or stridor. Abdominal exam: Soft, nontender, nondistended, normal bowel sounds. No pain in RUQ or LUQ specifically. No peritoneal signs. Extremity: Moderate tenderness palpation over the left greater trochanter. No pain with internal or external rotation of his hip. Test Results: EKG is sinus at 96 with a right bundle branch and left anterior fascicular block. Nonspecific ST changes. Is unchanged from May 2018. Troponin is negative. Chem-7 shows a creatinine 1.46. CBC shows an H&H of 11.9 37.9. Monocytes of 12.1. Clinical Impression(s) from Imaging Studies Brain CT 02/07/20 22:30 IMPRESSION: No acute intracranial abnormality. Right parietal scalp contusion with likely blood in a towel or dressing about the head Chronic changes as above. ASPECT 10. Individualized dose optimization techniques were used for this CT. at 2300 Reported and signed by: Cliff Guerrero MD Electronically Signed: Cliff Guerrero MD at 22:59 EDT Tel , Service support , Hip/Pelvis X-Ray 02/08/20 00:00 IMPRESSION: No acute left hip fracture perceived at 0036 Reported and signed by: Cliff Guerrero MD Electronically Signed: Cliff Guerrero MD at 0:35 EDT Tel , Service support , Emergency Department Course and Treatment: The patient was given morphine and fentanyl for his pain. He was given Zofran for his nausea. He had his tetanus updated. He had his laceration repaired. There was a significant mound of bleeding prior to this. He was typed and screened. He was given a 500 cc bolus of normal saline as his systolic blood pressure decreased into the 80s. Treatment Plan: The patient was discussed with Dr. Castro. He will be admitted to the hospital for further evaluation and treatment. Disposition: Admitted in improved, but serious condition. Impression: 1. Syncope. 2. Hypotension. 3. Scalp laceration, 2 cm, repaired. 4. Bifascicular block. Procedure note: Wound was cleansed with chlorhexidine soap. Anesthetized with 1% lidocaine without epinephrine. Copiously irrigated with normal saline. Wound was explored there is no foreign material present. There was a significant amount of venous bleeding that was controlled with 3 subcutaneous 4-0 Vicryl sutures. It was closed with 6 simple interrupted 3-0 ethilon sutures. The patient tolerated it well. The bleeding was controlled following this. This note was generated with Dragon dictation software. It may contain incorrect words, spelling, and punctuation that were not noted in review of the chart prior to signing ED Disposition - Plan for ED Patient: Disposition: Acute Care Hospital [facility]
--- NOTE | 2020-02-08 05:55 | ECHOD_ITS ---
Reason For Study: Syncope Procedure This was a 2D Doppler, Color Flow transthoracic echocardiogram. The study was technically difficult. Exam performed portable in patient room. Left Ventricle Mildly dilated left ventricle. The estimated ejection fraction is 40-45 %. Right Ventricle Normal right ventricle. Atria The left atrium is mildly enlarged. Normal right atrium. Normal atrial septum. Mitral Valve Trivial mitral valve insufficiency. Tricuspid Valve Trivial tricuspid valve insufficiency. Aortic Valve Normal aortic valve. Pulmonic Valve The pulmonic valve is not well visualized. Pericardium/Pleural No pericardial effusion. MMode/2D Measurements & Calculations LVIDd: 4.9 cm IVSd: 0.97 cm Ao root diam: 3.6 cm LVIDs: 2.8 cm LVPWd: 1.1 cm RVDd: 3.5 cm FS: 42.7 % LAV(MOD-bp): 29.6 ml LA A4 area: 15.5 cm2 LA dimension(2D): 3.4 cm LAV(MOD-bp) Indexed: 13.9 ml/m2 LAV(MOD-sp2): 24.8 ml LAV(MOD-sp4): 31.8 ml RA A4 area: 12.6 cm2 Doppler Measurements & Calculations MV E max mitzy: 59.7 cm/sec Ao V2 max: 150.3 cm/sec LV V1 max: 101.8 cm/sec MV A max mitzy: 74.3 cm/sec Ao max P.2 mmHg LV V1 max P.7 mmHg MV E/A: 0.80 MO V2 max: 110.0 cm/sec Interpretation Summary The estimated ejection fraction is 40-45 %. Mildly dilated left ventricle. Trivial mitral valve insufficiency. Trivial tricuspid valve insufficiency. No pericardial effusion. Ordering Physician: Arsenio Castro Referring Physician: ROQUE Jones M.D. Performed By: Mary Westbrook RDCS
[2020-02-08 06:20] LABS: Absolute Lymphocyte Count 1.32 X10^3/uL (0.83-4.51); Absolute Neutrophil Count 7.3 X10^3/uL (2.0-7.7); Basophil# 0.03 X10^3/uL; Basophil% 0.3 % (0-1); Eosinophil# 0.03 X10^3/uL; Eosinophils% 0.3 % (0-5); Hematocrit 28.4 % (40-54); Hemoglobin 8.7 g/dL (13.0-16.5); Lymphocyte # 1.32 X10^3/ul (4.0); Lymphocyte % 13.7 % (19-41); Mean Corp Hgb Conc 30.6 g/dL (32-36); Mean Corpuscular Hgb 27.5 pg (27.0-32.0); Mean Corpuscular Volume 89.9 fL (80-94); Mean Platelet Vol. 9.2 fl (6.2-12.0); Monocyte# 0.94 X10^3/uL; Monocyte% 9.7 % (0-10); NRBC Flagged by Analyzer 0 % (0-5); Neutrophil # 7.25 X10^3/uL (2.7-7.7); Neutrophil % 75.1 % (47-70); Platelet Count 226 K/mm3 (150-450); RBC Distribution Width CV 16.5 % (11.6-14.6); RBC Distribution Width SD 54.6 fl (35.1-43.9); Red Blood Count 3.16 M/mm3 (4.6-6.2); White Blood Count 9.7 K/mm3 (4.4-11.0)
[2020-02-08] MEDS: Levothyroxine 50 MCG Tablet PO (06:42)
[2020-02-08 06:58] LABS: Anion Gap 6 (5-15); BUN 20 mg/dL (7-18); BUN/Creat Ratio 13.2 RATIO (10-20); Calcium,Total 8.5 mg/dL (8.5-10.1); Chloride 105 mmol/L (98-107); Creatinine, Serum 1.51 mg/dL (0.70-1.30); EST Glomerular Filtration Rate 47 mL/min (>60); Est Glom Filt Rate - Afr Amer 57 mL/min (>60); Estimated Creatinine Clearance 31.58 ml/min; Glucose 125 mg/dL (74-106); Potassium 5.1 mmol/L (3.5-5.1); Sodium Level 136 mmol/L (136-145)
[2020-02-08 07:00] LABS: Bedside Glucose 144 mg/dL (70-110)
--- NOTE | 2020-02-08 08:00 | CT_ITS ---
STUDY: CT PELVIS WITHOUT CONTRAST REASON FOR EXAM: Male, 84 years old. Fall RADIATION DOSAGE (If Supplied By Facility): CTDIvol = ( ) mGy, DLP = ( ) mGycm TECHNIQUE: Transaxial imaging of the pelvis was performed with oral contrast, and without intravenous administration of contrast material. Individualized dose optimization techniques were used for this CT. COMPARISON: None. FINDINGS: There is a non-specific bowel gas pattern. Normal visualized soft tissue structures. Normal visualized right femoral head. Normal right acetabulum. Normal right hip joint. Normal visualized left femoral head. Normal left acetabulum. Normal left hip joint. CT/Pelvis without IV Contrast IMPRESSION: No demonstrated fractures Electronically Signed: Lizandro Juarez MD at 9:03 EDT Tel , Service support ,
[2020-02-08] MEDS: Citalopram 10 MG Tablet PO (09:01)
--- NOTE | 2020-02-08 10:43 | CASEMGMT ---
RN CM Assessment Note Intro role of CM to patient and his in room. Both are awake, alert and able to participate in assessment. Pt generally independent at home and able to complete self care. Presentation: syncope and collapse Diagnosis: Hypotension PCP: Dr. Soham Jones III Insurance: [employer] [facility] Preferred [facility]acy: [facility] Prescription Benefit: yes LNOK: , Iris Syed Living Arrangements: Lives in one story home with 3 steps in to home. uses walker, independent with ADL's and is able to assist if needed. feels patient will no have dc needs and she is able to assist. Patient uses cane normally, but uses walker when his hip is hurting. Tranportation: drives DME: walker, cane, cpap HHC: none. SNF: none Patient DC Goals: Home DC Plan: Home. If PT/OT needed on dc, script for Outpt PT/OT can be given if needed. Contact CM for any concerns/needs that may arise. Brent HILL RN ACM
[2020-02-08] MEDS: Insulin Lispro 100 UNIT/ML INSULN.PEN SC ×2 (11:33→23:00)
[2020-02-08 11:50] LABS: Bedside Glucose 200 mg/dL (70-110)
--- NOTE | 2020-02-08 12:16 | PN_ITS ---
Patient Problems: Active and Suspected Problems (Last Reviewed 02/08/20 @ 00:[address] Arsenio Castro MD) Syncope and collapse (Acute) Subjective: Patient seen and examined. He was admitted with a complaint of syncope. He complains of left hip pain today. He is able to weight-bear on it though. He denies any headache, blurred vision, nausea vomiting or diarrhea. Review of systems otherwise negative. Labs and vitals reviewed. Hemoglobin noted to have dropped to 8.7 from 11.8 on admission. Vitals/I&O's: Vital Signs Temp Pulse Resp BP Pulse Ox 97.7 F L 95 18 111/59 L 98 02/08/20 09:05 02/08/20 09:05 02/08/20 09:05 02/08/20 09:05 02/08/20 09:05 Oxygen Flow Rate (L/min) 1 Oxygen Delivery Method Room Air Weight: 235 lb 7.259 oz Body Mass Index (BMI) 40.4 Finger Stick Blood Glucose 67 Orthostatic Vital Signs Start: 02/08/20 04:46 Freq: q24h Status: Active Protocol: Activity Type Activity Date Activity User E-Sign Co-Sign Detail Recorded Client Recorded Date Recorded By Document 02/08/20 04:46 AE [id number] 02/08/20 06:59 AE 02/08/20 04:46 Orthostatic Vitals Sitting -Blood Pressure (90/60-120/80) 128/58 H -Extremity Use Right Arm -Pulse Rate (60-100) 95 Lying -Blood Pressure (90/60-120/80) 126/64 H -Extremity Use Right Arm -Pulse Rate (60-100) 88 Intake and Output for Last 24 Hours 02/06/20 02/07/20 02/08/20 23:59 23:59 23:59 Intake Total 1681.25 / 1681.25 Output Total 100 / 100 Balance 1581.25 / 1581.25 General: Alert, Oriented x3, Cooperative, No apparent distress HEENT: Atraumatic, PERRLA, EOMI, Normocephalic, - - has sutured laceratation on right scalp Oral: Dry Mucosa Neck: Supple, No JVD, Negative Carotid Bruits Lungs: Clear to auscultation, Normal air movement Cardiovascular: Regular rate, Regular Rhythm, Normal S1, Normal S2, No murmurs Abdomen: Bowel Sounds Present, Soft, Non Tender, Non-Distended, No Hepato- splenomegaly Extremities: No clubbing, No cyanosis, No edema, Capillary Refill Less than 3 Seconds Skin: No rashes, No breakdown Musculoskeletal: No Tenderness to Palpation of Joints or Extremities Lymphatic: No Cervical, Supraclavicular, or Inguinal Adenopathy Neurological: Cranial nerves II-XII grossly intact, Neuro grossly intact, Motor Exam 5/5 strength throughout Psych/Mental Status: Normal Affect, Appropriate, Alert and oriented to time, place, person, mood and affect Laboratory Results 02/07/20 21:50: WBC 6.1, RBC 4.25 L, Hgb 11.9 L, Hct 37.9 L, MCV 89.2, MCH 28.0, MCHC 31.4 L, RDW Std Deviation 53.2 H, RDW Coeff of Perla 16.4 H, Plt Count 264, MPV 9.1, Immature Gran % (Auto) 0.800, Neut % (Auto) 53.3, Lymph % (Auto) 30.9, [place] % (Auto) 12.1 H, Eos % (Auto) 2.1, Baso % (Auto) 0.8, Absolute Neuts (auto) 3.2, Absolute Lymphs (auto) 1.87, Nucleated RBC % 0 02/07/20 21:50: Sodium 139, Potassium 4.1, Chloride 104, Carbon Dioxide 25.0, Anion Gap 10, BUN 17, Creatinine 1.46 H, Estim Creat Clear Calc 31.39, Est GFR (MDRD) Af Amer 59 L, Est GFR (MDRD) Non-Af 49 L, BUN/Creatinine Ratio 11.6, Glucose 78, Calcium 9.5, Troponin I < 0.015 02/07/20 23:50: Blood Type A POSITIVE, Antibody Screen NEGATIVE 02/07/20 23:50: Hgb 9.8 L, Hct 31.4 L 02/08/20 05:45: WBC 9.7, RBC 3.16 L, Hgb 8.7 L, Hct 28.4 L, MCV 89.9, MCH 27.5, MCHC 30.6 L, RDW Std Deviation 54.6 H, RDW Coeff of Perla 16.5 H, Plt Count 226, MPV 9.2, Immature Gran % (Auto) 0.900, Neut % (Auto) 75.1 H, Lymph % (Auto) 13.7 L, [place] % (Auto) 9.7, Eos % (Auto) 0.3, Baso % (Auto) 0.3, Absolute Neuts (auto) 7.3, Absolute Lymphs (auto) 1.32, Nucleated RBC % 0 02/08/20 05:45: Sodium 136, Potassium 5.1, Chloride 105, Carbon Dioxide 25.0, Anion Gap 6, BUN 20 H, Creatinine 1.51 H, Estim Creat Clear Calc 31.58, Est GFR (MDRD) Af Amer 57 L, Est GFR (MDRD) Non-Af 47 L, BUN/Creatinine Ratio 13.2, Glucose 125 H, Calcium 8.5 02/08/20 06:45: POC Glucose 144 H 02/08/20 11:30: POC Glucose 200 H Diagnostic Data Brain CT 02/07/20 22:30 IMPRESSION: No acute intracranial abnormality. Right parietal scalp contusion with likely blood in a towel or dressing about the head Chronic changes as above. ASPECT 10. Individualized dose optimization techniques were used for this CT. at 2300 Reported and signed by: Cliff Guerrero MD Electronically Signed: Cliff Guerrero MD at 22:59 EDT Tel , Service support , Hip/Pelvis X-Ray 02/08/20 00:00 IMPRESSION: No acute left hip fracture perceived at 0036 Reported and signed by: Cliff Guerrero MD Electronically Signed: Cliff Guerrero MD at 0:35 EDT Tel , Service support , Pelvis CT 02/08/20 08:00 IMPRESSION: No demonstrated fractures Electronically Signed: Lizandro Juarez MD at 9:03 EDT Tel , Service support , Current Medications Acetaminophen (Tylenol) 650 mg PO Q6H PRN PRN PRN Reason: Pain Score 1-10/Temp > 100.7 F Last Admin: 02/08/20 09:01 Dose: 650 mg Documented by: Cholecalciferol (Vitamin D (25mcg)) 5,000 unit PO DAILY [facility] Last Admin: 02/08/20 09:01 Dose: 5,000 unit Documented by: Citalopram Hydrobromide (Celexa) 10 mg PO DAILY [facility] Last Admin: 02/08/20 09:01 Dose: 10 mg Documented by: Dextrose (D50w Syringe) 0 gm IV X1 PRN; Protocol PRN Reason: Hypoglycemia Glucagon () 1 mg IM .X1 PRN PRN Reason: Hypoglycemia Sodium Chloride () 1,000 mls @ 75 mls/hr IV .[id number] [facility] Last Infusion: 02/08/20 09:02 Dose: 75 mls/hr Documented by: Sodium Chloride () 250 mls @ 15 mls/hr IV .[id number] PRN PRN Reason: Saline Flush Sodium Chloride () 250 mls @ 15 mls/hr IV .[id number] PRN PRN Reason: Additional IVPB Infusion Insulin Human Lispro (Humalog Kwikpen (Bkc)) 0 unit SC ACHS [facility]; Protocol Last Admin: 02/08/20 11:33 Dose: 1 units Documented by: Levothyroxine Sodium (Synthroid) 50 mcg PO DAILY@0600 [facility] Last Admin: 02/08/20 06:42 Dose: 50 mcg Documented by: Ondansetron HCl (Zofran) 4 mg IV Q8H PRN PRN PRN Reason: NAUSEA/VOMITING Oxycodone HCl (Oxyir) 5 mg PO Q4H PRN PRN PRN Reason: Pain Score 4-10/10 Last Admin: 02/08/20 09:01 Dose: 5 mg Documented by: Pravastatin Sodium (Pravachol) 20 mg PO DAILY@2200 [facility] Sodium Chloride () 10 - 40 ml IV UD PRN PRN Reason: SALINE FLUSH STROKE Vital Signs/Narrative: Vital Signs Temp Pulse Resp BP Pulse Ox 02/08/20 09:05 97.7 F L 95 18 111/59 L 98 Medical Necessity - Tobacco Use Smoking Status: Former smoker Assessment/Plan All Active Problems (Last Reviewed 02/08/20 @ 00:[address] Arsenio Castro MD) Syncope and collapse (Acute) Appendicitis (Resolved) Chest pain (Resolved) Cough (Resolved) Dyspnea (Resolved) Right flank pain (Resolved) Shortness of breath (Resolved) Upper respiratory infection (Resolved) Nonrheumatic tricuspid (valve) insufficiency (Ruled-out) # Syncope * Cause of syncope is not clear. EKG showed bifascicular block unchanged from EKG in 2018. * Orthostatics also negative. * 2D echocardiogram ordered and is pending. * Been hydrated with IV fluids. * PT OT on board. Fall precautions. * #Hypotension * Blood pressure dropped to as low as 84/58 at time of admission. Likely due to blood loss from scalp laceration. * Resolved. Continue hydration with IV fluids. * #Acute blood loss anemia: * Hemoglobin is down to 8.7 today. * Likely due to blood loss from scalp laceration which is now been sutured. * CT of the left hip done today because he was still complaining of pain was negative for any fracture. * #Right scalp laceration: Due to mechanical fall. Status post suturing. stable #Right hip pain: Now improved. On oxycodone as needed. #Hypothyroidism: On Synthroid. Hypertension: Medication held on account of hypotension on admission. Home meds are losartan and amlodipine, although losartan is listed as an allergy. CAD: On aspirin, Plavix and Imdur as well as losartan and statin. DVT prophylaxis: SCDs. OBSV E&M: 45391 Subsequent observation care L2
--- NOTE | 2020-02-08 14:44 | CASEMGMT ---
Intro role of CM to patient and [employer] form explained re: Observation status for treatment of syncope to and patient. Explained hospitalization will be paid per? insurance policy for Outpatient billing?and condition will continue to be evaluated for Inpt necessity. Also let pt know that [facility] sends paper in the billing packet with their phone number if questions arise. Discussed Pharmacy section of [employer] form and self administered medication guideline.? Pt and verbalized understanding and does not have further questions. signed form at 's request. Copy left with them and signed copy placed in chart. Kelton EDMOND RN BSN CM
[2020-02-08 16:51] LABS: Bedside Glucose 141 mg/dL (70-110)
[2020-02-08] MEDS: Pravastatin 20 MG Tablet PO (20:57)
[2020-02-08 23:51] LABS: Bedside Glucose 214 mg/dL (70-110)
[2020-02-09] VITALS (11 sets, daily range): BP systolic 118–149; BP diastolic 60–80; PULSE 76–99; RESP 18–20; TEMP 36.4–36.9; O2SAT 93–98
[2020-02-09] MEDS: 0.9% Saline Lock 10 ML Syringe IV (00:56)
[2020-02-09] MEDS: oxyCODONE 5 MG Tablet PO ×4 (03:42→20:13)
[2020-02-09] MEDS: Acetaminophen 325 MG Tablet 650 MG PO (03:42)
[2020-02-09] MEDS: Levothyroxine 50 MCG Tablet PO (06:51)
[2020-02-09] MEDS: Insulin Lispro 100 UNIT/ML INSULN.PEN SC ×4 (06:53→21:55)
[2020-02-09] MEDS: 0.9% Normal Saline 1,000 ML 75 ML IV (06:57)
[2020-02-09 07:10] LABS: Bedside Glucose 159 mg/dL (70-110)
--- NOTE | 2020-02-09 07:39 | NURSING ---
0730 notified of fall
[2020-02-09] MEDS: Citalopram 10 MG Tablet PO (08:34)
[2020-02-09 08:42] LABS: Absolute Lymphocyte Count 1.57 X10^3/uL (0.83-4.51); Absolute Neutrophil Count 3.1 X10^3/uL (2.0-7.7); Basophil# 0.04 X10^3/uL; Basophil% 0.7 % (0-1); Eosinophils% 1.8 % (0-5); Hematocrit 24.9 % (40-54); Hemoglobin 7.8 g/dL (13.0-16.5); Lymphocyte # 1.57 X10^3/ul (4.0); Lymphocyte % 28.2 % (19-41); Mean Corp Hgb Conc 31.3 g/dL (32-36); Mean Corpuscular Hgb 28.3 pg (27.0-32.0); Mean Corpuscular Volume 90.2 fL (80-94); Mean Platelet Vol. 9.1 fl (6.2-12.0); Monocyte# 0.67 X10^3/uL; NRBC Flagged by Analyzer 0 % (0-5); Neutrophil # 3.13 X10^3/uL (2.7-7.7); Neutrophil % 56.2 % (47-70); Platelet Count 205 K/mm3 (150-450); RBC Distribution Width CV 16.6 % (11.6-14.6); RBC Distribution Width SD 54.6 fl (35.1-43.9); Red Blood Count 2.76 M/mm3 (4.6-6.2); White Blood Count 5.6 K/mm3 (4.4-11.0)
[2020-02-09 09:19] LABS: Anion Gap 2 (5-15); BUN 16 mg/dL (7-18); BUN/Creat Ratio 12.4 RATIO (10-20); Calcium,Total 8.6 mg/dL (8.5-10.1); Chloride 107 mmol/L (98-107); Creatinine, Serum 1.29 mg/dL (0.70-1.30); EST Glomerular Filtration Rate 57 mL/min (>60); Est Glom Filt Rate - Afr Amer 69 mL/min (>60); Estimated Creatinine Clearance 36.97 ml/min; Glucose 149 mg/dL (74-106); Potassium 4.5 mmol/L (3.5-5.1); Sodium Level 139 mmol/L (136-145)
[2020-02-09 11:40] LABS: Bedside Glucose 233 mg/dL (70-110)
[2020-02-09 12:29] LABS: Ferritin 16 ng/mL (26-388); Iron 39 ug/dL (65-175); Iron Binding Capacity,Total 352 ug/dL (250-450); PERCENT IRON SATURATION 11.1 % (15.0-55.0)
--- NOTE | 2020-02-09 12:34 | PCM.PN.HOSP ---
Patient Problems: Active and Suspected Problems (Last Reviewed 02/08/20 @ 00:[address] Arsenio Castro MD) Syncope and collapse (Acute) Subjective: Patient seen and examined. He has no complaints today and wants to be discharged home. However hemoglobin noted to have dropped to 7.8 today. He denies any dark stools or coughing up any blood. He does remember the last time he had a colonoscopy though he knows he has had one in the past. Labs and vitals reviewed. Vitals/I&O's: Vital Signs Temp Pulse Resp BP Pulse Ox 97.9 F 76 18 144/67 H 98 02/09/20 08:22 02/09/20 08:22 02/09/20 08:22 02/09/20 08:22 02/09/20 08:22 Oxygen Flow Rate (L/min) 2 Oxygen Delivery Method Room Air Weight: 235 lb 7.259 oz Body Mass Index (BMI) 40.4 Finger Stick Blood Glucose 67 Orthostatic Vital Signs Start: 02/08/20 04:46 Freq: q24h Status: Active Protocol: Activity Type Activity Date Activity User E-Sign Co-Sign Detail Recorded Client Recorded Date Recorded By Document 02/09/20 03:45 EV [id number] 02/09/20 03:55 EV 02/09/20 03:45 Orthostatic Vitals Standing -Blood Pressure (90/60-120/80) 138/74 H -Extremity Use Left Arm -Pulse Rate (60-100) 94 Sitting -Blood Pressure (90/60-120/80) 118/69 -Extremity Use Left Arm -Pulse Rate (60-100) 99 Lying -Blood Pressure (90/60-120/80) 120/60 -Extremity Use Left Arm -Pulse Rate (60-100) 84 Intake and Output for Last 24 Hours 02/07/20 02/08/20 02/09/20 23:59 23:59 23:59 Intake Total 3203.75 / 3203.75 817.5 / 817.5 Output Total 100 / 375 1050 / 1050 Balance 3103.75 / 2828.75 -232.5 / -232.5 General: Alert, Oriented x3, Cooperative, No apparent distress HEENT: Atraumatic, PERRLA, EOMI, Normocephalic, - - has sutured laceration on right scalp Oral: Dry Mucosa Neck: Supple, No JVD, Negative Carotid Bruits Lungs: Clear to auscultation, Normal air movement Cardiovascular: Regular rate, Regular Rhythm, Normal S1, Normal S2, No murmurs Abdomen: Bowel Sounds Present, Soft, Non Tender, Non-Distended, No Hepato-splenomegaly Extremities: No clubbing, No cyanosis, No edema, Capillary Refill Less than 3 Seconds Skin: No rashes, No breakdown Musculoskeletal: No Tenderness to Palpation of Joints or Extremities Lymphatic: No Cervical, Supraclavicular, or Inguinal Adenopathy Neurological: Cranial nerves II-XII grossly intact, Neuro grossly intact, Motor Exam 5/5 strength throughout Psych/Mental Status: Normal Affect, Appropriate, Alert and oriented to time, place, person, mood and affect Laboratory Results 02/08/20 16:46: POC Glucose 141 H 02/08/20 22:50: POC Glucose 214 H 02/09/20 06:52: POC Glucose 159 H 02/09/20 08:25: WBC 5.6, RBC 2.76 L, Hgb 7.8 L, Hct 24.9 L, MCV 90.2, MCH 28.3, MCHC 31.3 L, RDW Std Deviation 54.6 H, RDW Coeff of Perla 16.6 H, Plt Count 205, MPV 9.1, Immature Gran % (Auto) 1.100 H, Neut % (Auto) 56.2, Lymph % (Auto) 28.2, [place] % (Auto) 12.0 H, Eos % (Auto) 1.8, Baso % (Auto) 0.7, Absolute Neuts (auto) 3.1, Absolute Lymphs (auto) 1.57, Nucleated RBC % 0 02/09/20 08:25: Sodium 139, Potassium 4.5, Chloride 107, Carbon Dioxide 30.0, Anion Gap 2 L, BUN 16, Creatinine 1.29, Estim Creat Clear Calc 36.97, Est GFR (MDRD) Af Amer 69, Est GFR (MDRD) Non-Af 57 L, BUN/Creatinine Ratio 12.4, Glucose 149 H, Calcium 8.6 02/09/20 08:25: Iron 39 L, TIBC 352, Iron Saturation 11.1 L, Ferritin 16 L 02/09/20 11:33: POC Glucose 233 H Diagnostic Data Brain CT 02/07/20 22:30 IMPRESSION: No acute intracranial abnormality. Right parietal scalp contusion with likely blood in a towel or dressing about the head Chronic changes as above. ASPECT 10. Individualized dose optimization techniques were used for this CT. at 2300 Reported and signed by: Cliff Guerrero MD Electronically Signed: Cliff Guerrero MD at 22:59 EDT Tel , Service support , Hip/Pelvis X-Ray 02/08/20 00:00 IMPRESSION: No acute left hip fracture perceived at 0036 Reported and signed by: Cliff Guerrero MD Electronically Signed: Cliff Guerrero MD at 0:35 EDT Tel , Service support , Pelvis CT 02/08/20 08:00 IMPRESSION: No demonstrated fractures Electronically Signed: Lizandro Juarez MD at 9:03 EDT Tel , Service support , Current Medications Acetaminophen (Tylenol) 650 mg PO Q6H PRN PRN PRN Reason: Pain Score 1-10/Temp > 100.7 F Last Admin: 02/09/20 03:42 Dose: 650 mg Documented by: Cholecalciferol (Vitamin D (25mcg)) 5,000 unit PO DAILY [facility] Last Admin: 02/09/20 08:34 Dose: 5,000 unit Documented by: Citalopram Hydrobromide (Celexa) 10 mg PO DAILY [facility] Last Admin: 02/09/20 08:34 Dose: 10 mg Documented by: Dextrose (D50w Syringe) 0 gm IV X1 PRN; Protocol PRN Reason: Hypoglycemia Glucagon () 1 mg IM .X1 PRN PRN Reason: Hypoglycemia Sodium Chloride () 250 mls @ 15 mls/hr IV .[id number] PRN PRN Reason: Saline Flush Sodium Chloride () 250 mls @ 15 mls/hr IV .[id number] PRN PRN Reason: Additional IVPB Infusion Insulin Human Lispro (Humalog Kwikpen (Bkc)) 0 unit SC ACHS [facility]; Protocol Last Admin: 02/09/20 11:34 Dose: 2 units Documented by: Levothyroxine Sodium (Synthroid) 50 mcg PO DAILY@0600 [facility] Last Admin: 02/09/20 06:51 Dose: 50 mcg Documented by: Ondansetron HCl (Zofran) 4 mg IV Q8H PRN PRN PRN Reason: NAUSEA/VOMITING Oxycodone HCl (Oxyir) 5 mg PO Q4H PRN PRN PRN Reason: Pain Score 4-10/10 Last Admin: 02/09/20 08:34 Dose: 5 mg Documented by: Pravastatin Sodium (Pravachol) 20 mg PO DAILY@2200 [facility] Last Admin: 02/08/20 20:57 Dose: 20 mg Documented by: Sodium Chloride () 10 - 40 ml IV UD PRN PRN Reason: SALINE FLUSH Last Admin: 02/09/20 00:56 Dose: 10 ml Documented by: Medical Necessity - Tobacco Use Smoking Status: Former smoker Assessment/Plan All Active Problems (Last Reviewed 02/08/20 @ 00:[address] Arsenio Castro MD) Syncope and collapse (Acute) Appendicitis (Resolved) Chest pain (Resolved) Cough (Resolved) Dyspnea (Resolved) Right flank pain (Resolved) Shortness of breath (Resolved) Upper respiratory infection (Resolved) Nonrheumatic tricuspid (valve) insufficiency (Ruled-out) # Syncope EKG showed bifascicular block unchanged from EKG in 2018. Orthostatics also negative. 2D echo showed EF of 40-45%,w tih mildlay dilated LV and normal RV. LA mildly enlarged, with no pericardial effusion PT/OT on board fall precautions #Hypotension resolved. IVF stopped #Acute blood loss anemia: Hb is down to 7.8 today. he doesnt have any dizziness or headache; however, he did fall again iron panel done shows iron deficiency anemia I do think this is likley due to blood loss from scalp laceration; however, I will get a CT of the brain to be sure there is no occult subdural hematoma that is causing this drop in hemoglobin if this is negative, general surgery will be consulted. #Right scalp laceration: Due to mechanical fall. Status post suturing. stable #Right hip pain: Now improved. On oxycodone as needed. #Hypothyroidism: On Synthroid. Hypertension: Medication held on account of hypotension on admission. Home meds are losartan and amlodipine, although losartan is listed as an allergy. will resume amlodipine. CAD: On aspirin, Plavix and Imdur as well as losartan and statin. aspirin and plavix held due to mechanical fall and scalp bleed DVT prophylaxis: SCDs. OBSV E&M: 10852 Subsequent observation care L2
--- NOTE | 2020-02-09 12:51 | CT_ITS ---
STUDY: CT BRAIN WITHOUT CONTRAST REASON FOR EXAM: Male, 84 years old. FALL X2 DAYS AGO--STILL HAS HEADACHE -- LAC TO HEAD RADIATION DOSAGE (If Supplied By Facility): CTDIvol = ( 44.99 ) mGy, DLP = ( 812.98 ) mGycm TECHNIQUE: Transaxial CT imaging of the brain was performed without administration of intravenous contrast material. Individualized dose optimization techniques were used for this CT. COMPARISON: None. FINDINGS: There is cerebral atrophy with widening of the extra-axial spaces and ventricular dilatation. There are areas of decreased attenuation within the white matter tracts of the supratentorial brain, consistent with microvascular disease changes. There is no intracranial hemorrhage. There are no findings of an acute ischemic infarction. Normal soft tissue structures. Normal visualized paranasal sinuses. CT/Brain/Head without Contrast IMPRESSION: Chronic involutional changes of the brain. Electronically Signed: Lizandro Juarez MD at 14:24 EDT Tel , Service support ,
[2020-02-09] MEDS: Senna Tablet 2 TABLET PO (13:59)
[2020-02-09] MEDS: amLODIPine 5 MG Tablet PO (13:59)
[2020-02-09 16:25] LABS: Bedside Glucose 171 mg/dL (70-110)
[2020-02-09] MEDS: Pravastatin 20 MG Tablet PO (21:54)
[2020-02-09 22:01] LABS: Bedside Glucose 217 mg/dL (70-110)
[2020-02-10 02:00] VITALS: BP 151/75; PULSE 95; RESP 18; TEMP 36.9; O2SAT 93
[2020-02-10 02:59] VITALS: PULSE 83
[2020-02-10] MEDS: oxyCODONE 5 MG Tablet PO ×2 (04:21→08:24)
[2020-02-10 06:14] LABS: Absolute Lymphocyte Count 1.46 X10^3/uL (0.83-4.51); Basophil# 0.04 X10^3/uL; Basophil% 0.8 % (0-1); Eosinophil# 0.12 X10^3/uL; Eosinophils% 2.3 % (0-5); Hematocrit 25.4 % (40-54); Hemoglobin 7.9 g/dL (13.0-16.5); Lymphocyte # 1.46 X10^3/ul (4.0); Mean Corp Hgb Conc 31.1 g/dL (32-36); Mean Corpuscular Hgb 28.5 pg (27.0-32.0); Mean Corpuscular Volume 91.7 fL (80-94); Monocyte# 0.56 X10^3/uL; Monocyte% 10.7 % (0-10); NRBC Flagged by Analyzer 0 % (0-5); Neutrophil % 57.4 % (47-70); Platelet Count 211 K/mm3 (150-450); RBC Distribution Width CV 16.4 % (11.6-14.6); RBC Distribution Width SD 54.3 fl (35.1-43.9); Red Blood Count 2.77 M/mm3 (4.6-6.2); White Blood Count 5.2 K/mm3 (4.4-11.0)
[2020-02-10] MEDS: Insulin Lispro 100 UNIT/ML INSULN.PEN SC (06:29)
[2020-02-10] MEDS: Levothyroxine 50 MCG Tablet PO (06:29)
[2020-02-10 06:44] LABS: Anion Gap 7 (5-15); BUN 14 mg/dL (7-18); BUN/Creat Ratio 11.4 RATIO (10-20); Calcium,Total 8.7 mg/dL (8.5-10.1); Chloride 104 mmol/L (98-107); Creatinine, Serum 1.23 mg/dL (0.70-1.30); EST Glomerular Filtration Rate 60 mL/min (>60); Est Glom Filt Rate - Afr Amer 72 mL/min (>60); Estimated Creatinine Clearance 38.77 ml/min; Glucose 210 mg/dL (74-106); Potassium 4.3 mmol/L (3.5-5.1); Sodium Level 137 mmol/L (136-145)
[2020-02-10 06:46] LABS: Bedside Glucose 211 mg/dL (70-110)
[2020-02-10 06:55] VITALS: PULSE 89
--- NOTE | 2020-02-10 07:39 | PCM.CONS.GEN ---
Problem List (1) Iron deficiency anemia Status: Acute Qualifiers: Iron deficiency anemia type: unspecified iron deficiency Qualified Code(s): D50.9 - Iron deficiency anemia, unspecified (2) Syncope and collapse Status: Acute Reason for Consult Date of Consultation: 02/10/20 Reason for Consultation: Iron deficiency anemia History of Present Illness: The patient is a 84 year old M who presented after syncopal fall and scalp laceration with bleeding. Patient reports he lost a significant amount of blood during his scalp laceration. The patient does not remember the last time he had a colonoscopy but he said he has had one in the past. He has never had an EGD. He is not having any abdominal pain or gross blood loss. Past Medical History Past Medical History (Chronic Problems): Chronic Problems (Last Reviewed 02/08/20 @ 00:[address] 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) I45.2 Premature ventricular contractions (Chronic) I49.3 Atherosclerotic heart disease of [place] coronary artery without angina pectoris (Chronic) I25.10 Essential (primary) hypertension (Chronic) I10 HLD (hyperlipidemia) (Chronic) E78.5 Vocal cord dysfunction (Inactive) J38.3 DANYELL (obstructive sleep apnea) (Chronic) G47.33 BMI 40.0-44.9, adult Z68.41 Benign prostatic hypertrophy N40.0 Diabetes mellitus type 2 in obese E11.9, E66.9 GERD (gastroesophageal reflux disease) K21.9 Hiatal hernia K44.9 Hypothyroid E03.9 Nephrolithiasis Obesity E66.9 Anemia D64.9 Appendicitis (Resolved) K37 Chest pain (Resolved) R07.9 Cough (Resolved) R05 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 I42.0 Dyspnea (Resolved) R06.00 Right flank pain (Resolved) R10.9 Shortness of breath (Resolved) R06.02 Upper respiratory infection (Resolved) J06.9 Nonrheumatic tricuspid (valve) insufficiency (Ruled-out) I36.1 Allergies losartan Adverse Reaction (Intermediate, Verified 02/07/20 21:51) Jitters metoprolol Adverse Reaction (Intermediate, Verified 02/07/20 21:51) Jitters pioglitazone HCl [From Actos] Adverse Reaction (Verified 02/07/20 21:51) Upset Stomach Home Medications: Ambulatory Orders Medication Instructions Recorded Levothyroxine [Synthroid] 50 mcg PO DAILY 01/05/14 Pravastatin [Pravachol] 20 mg PO DAILY 01/05/14 metFORMIN HCl [Glucophage] 1,000 mg PO BIDCM 01/05/14 Cholecalciferol (Vitamin D3) 5,000 unit PO DAILY 06/29/15 [Vitamin D3] Finasteride [Proscar] 5 mg PO DAILY 06/29/15 Insulin NPH/Reg 70/30 [Novolin 50 units SC BREAKFAST 06/29/15 70/30] Pantoprazole Sodium [Protonix] 40 mg PO DAILY 06/29/15 Aspirin [Adult Low Dose Aspirin EC] 81 mg PO DAILY 07/24/15 insulin human U-100 NPH-regulr 40 unit SC DINNER ml 10/17/18 70-30 mix 100 unit/mL subcutaneous susp furosemide 40 mg tablet 40 mg PO DAILY #90 tab 02/20/19 isosorbide mononitrate 30 mg 30 mg PO DAILY #90 tab 04/15/19 tablet,extended release 24 hr Acetaminophen [Tylenol Extra 500 mg PO Q6H PRN PRN 06/22/19 Strength] clopidogrel 75 mg tablet 75 mg PO DAILY #90 tab 06/24/19 citalopram 10 mg tablet 10 mg PO DAILY tab 07/23/19 amlodipine 5 mg tablet See Rx Instructions .ROUTE 10/03/19 .COMPLEX #90 each Losartan Potassium [Cozaar] 100 mg PO DAILY 02/07/20 Surgical History: Surgical History (Last Reviewed 02/08/20 @ 00:[address] Arsenio Castro MD) History of coronary artery stent placement (Chronic) Onset Date: 07/01/15 Z95.5 RUDDY to Prox-Mid LAD w/ 3.5 x 20 Promus Stent done 07/01/15 History of appendectomy Z90.49 History of back surgery Z98.890 History of left heart catheterization Z98.890 History of lymph node biopsy Z98.890 History of right and left heart catheterization Onset Date: 07/02/18 Z98.890 Surgical History: angioplasty, - - lymph nodesw in chest and aorta accidentally nicked and had to have chest opened to repair it. Psychiatric History: - Smoking Status: Former smoker - *Family History Maternal Family History: Family History (Last Reviewed 02/08/20 @ 00:[address] Arsenio Castro MD) Mother CAD (coronary artery disease) Brother CAD (coronary artery disease) Myocardial infarction Daughter Asthma Father Cancer Sister Breast cancer Sister Cardiomyopathy History Items: Heart Disease, Unknown, - Review of Systems Constitutional: Denies: Anorexia, Fever HEENT: Denies: Difficulty Swallowing Cardiovascular: Reports: Palpitations, Syncope. Denies: Chest Pain Respiratory: Denies: Cough, Shortness of Breath Gastrointestinal: Denies: Abdominal Pain, Hematemesis, Hematochezia, Nausea, Melena, Vomiting Genitourinary: Denies: Dysuria Musculoskeletal: Denies: Joint Tenderness Skin: Denies: Jaundice Psychiatric: Denies: Anxiety Patient Problems: Active and Suspected Problems (Last Reviewed 02/08/20 @ 00:[address] Arsenio Castro MD) Syncope and collapse (Acute) Iron deficiency anemia (Acute) - Physical Exam Vitals/I&O's: Vital Signs Temp Pulse Resp BP Pulse Ox 98.4 F 89 18 151/75 H 93 02/10/20 02:00 02/10/20 06:55 02/10/20 02:00 02/10/20 02:00 02/10/20 02:00 Oxygen Flow Rate (L/min) 2 Oxygen Delivery Method Room Air Weight: 235 lb 7.259 oz Body Mass Index (BMI) 40.4 Finger Stick Blood Glucose 67 Orthostatic Vital Signs Start: 02/08/20 04:46 Freq: q24h Status: Active Protocol: Activity Type Activity Date Activity User E-Sign Co-Sign Detail Recorded Client Recorded Date Recorded By Document 02/09/20 03:45 EV [id number] 02/09/20 03:55 EV 02/09/20 03:45 Orthostatic Vitals Standing -Blood Pressure (90/60-120/80) 138/74 H -Extremity Use Left Arm -Pulse Rate (60-100) 94 Sitting -Blood Pressure (90/60-120/80) 118/69 -Extremity Use Left Arm -Pulse Rate (60-100) 99 Lying -Blood Pressure (90/60-120/80) 120/60 -Extremity Use Left Arm -Pulse Rate (60-100) 84 Intake and Output for Last 24 Hours 02/08/20 02/09/20 02/10/20 23:59 23:59 23:59 Intake Total 3203.75 / 3203.75 817.5 / 1057.5 480 / 480 Output Total 100 / 375 1050 / 1825 1075 / 1075 Balance 3103.75 / 2828.75 -232.5 / -767.5 -595 / -595 General: Alert, Oriented x3 Neck: No JVD Lungs: Normal air movement Cardiovascular: Regular rate, Regular Rhythm Abdomen: Soft, Non Tender, Non-Distended Microbiology Past 72 Hours 02/09/20 14:00 Stool Stool Occult Blood (YOLANDA) - Final Laboratory Results 02/09/20 08:25: WBC 5.6, RBC 2.76 L, Hgb 7.8 L, Hct 24.9 L, MCV 90.2, MCH 28.3, MCHC 31.3 L, RDW Std Deviation 54.6 H, RDW Coeff of Perla 16.6 H, Plt Count 205, MPV 9.1, Immature Gran % (Auto) 1.100 H, Neut % (Auto) 56.2, Lymph % (Auto) 28.2, Rankin % (Auto) 12.0 H, Eos % (Auto) 1.8, Baso % (Auto) 0.7, Absolute Neuts (auto) 3.1, Absolute Lymphs (auto) 1.57, Nucleated RBC % 0 02/09/20 08:25: Sodium 139, Potassium 4.5, Chloride 107, Carbon Dioxide 30.0, Anion Gap 2 L, BUN 16, Creatinine 1.29, Estim Creat Clear Calc 36.97, Est GFR (MDRD) Af Amer 69, Est GFR (MDRD) Non-Af 57 L, BUN/Creatinine Ratio 12.4, Glucose 149 H, Calcium 8.6 02/09/20 08:25: Iron 39 L, TIBC 352, Iron Saturation 11.1 L, Ferritin 16 L 02/09/20 11:33: POC Glucose 233 H 02/09/20 16:16: POC Glucose 171 H 02/09/20 21:53: POC Glucose 217 H 02/10/20 05:40: WBC 5.2, RBC 2.77 L, Hgb 7.9 L, Hct 25.4 L, MCV 91.7, MCH 28.5, MCHC 31.1 L, RDW Std Deviation 54.3 H, RDW Coeff of Perla 16.4 H, Plt Count 211, MPV 9.0, Immature Gran % (Auto) 0.800, Neut % (Auto) 57.4, Lymph % (Auto) 28.0, Rankin % (Auto) 10.7 H, Eos % (Auto) 2.3, Baso % (Auto) 0.8, Absolute Neuts (auto) 3.0, Absolute Lymphs (auto) 1.46, Nucleated RBC % 0 02/10/20 05:40: Sodium 137, Potassium 4.3, Chloride 104, Carbon Dioxide 26.0, Anion Gap 7, BUN 14, Creatinine 1.23, Estim Creat Clear Calc 38.77, Est GFR (MDRD) Af Amer 72, Est GFR (MDRD) Non-Af 60, BUN/Creatinine Ratio 11.4, Glucose 210 H, Calcium 8.7 02/10/20 06:28: POC Glucose 211 H Current Medications Acetaminophen (Tylenol) 650 mg PO Q6H PRN PRN PRN Reason: Pain Score 1-10/Temp > 100.7 F Last Admin: 02/09/20 03:42 Dose: 650 mg Documented by: Amlodipine Besylate (Norvasc) 5 mg PO DAILY [facility] Last Admin: 02/09/20 13:59 Dose: 5 mg Documented by: Cholecalciferol (Vitamin D (25mcg)) 5,000 unit PO DAILY [facility] Last Admin: 02/09/20 08:34 Dose: 5,000 unit Documented by: Citalopram Hydrobromide (Celexa) 10 mg PO DAILY [facility] Last Admin: 02/09/20 08:34 Dose: 10 mg Documented by: Dextrose (D50w Syringe) 0 gm IV X1 PRN; Protocol PRN Reason: Hypoglycemia Glucagon () 1 mg IM .X1 PRN PRN Reason: Hypoglycemia Sodium Chloride () 250 mls @ 15 mls/hr IV .[id number] PRN PRN Reason: Saline Flush Sodium Chloride () 250 mls @ 15 mls/hr IV .[id number] PRN PRN Reason: Additional IVPB Infusion Insulin Human Lispro (Humalog Kwikpen (Bkc)) 0 unit SC ACHS [facility]; Protocol Last Admin: 02/10/20 06:29 Dose: 2 units Documented by: Levothyroxine Sodium (Synthroid) 50 mcg PO DAILY@0600 [facility] Last Admin: 02/10/20 06:29 Dose: 50 mcg Documented by: Ondansetron HCl (Zofran) 4 mg IV Q8H PRN PRN PRN Reason: NAUSEA/VOMITING Oxycodone HCl (Oxyir) 5 mg PO Q4H PRN PRN PRN Reason: Pain Score 4-10/10 Last Admin: 02/10/20 04:21 Dose: 5 mg Documented by: Pravastatin Sodium (Pravachol) 20 mg PO DAILY@2200 [facility] Last Admin: 02/09/20 21:54 Dose: 20 mg Documented by: Senna (Senokot) 2 tablet PO DAILY PRN PRN PRN Reason: CONSTIPATION Last Admin: 02/09/20 13:59 Dose: 2 tablet Documented by: Sodium Chloride () 10 - 40 ml IV UD PRN PRN Reason: SALINE FLUSH Last Admin: 02/09/20 00:56 Dose: 10 ml Documented by: Assessment/Plan All Active Problems (Last Reviewed 02/08/20 @ 00:[address] Arsenio Castro MD) Syncope and collapse (Acute) Iron deficiency anemia (Acute) Appendicitis (Resolved) Chest pain (Resolved) Cough (Resolved) Dyspnea (Resolved) Right flank pain (Resolved) Shortness of breath (Resolved) Upper respiratory infection (Resolved) Nonrheumatic tricuspid (valve) insufficiency (Ruled-out) 84-year-old male with scalp laceration iron deficiency anemia 1. Patient likely has acute anemia due to scalp laceration and blood loss. The patient also has iron deficiency. Patient does not know when his last scope was. I would recommend the patient follow-up with me for suture removal and scheduling of outpatient EGD and colonoscopy. Jose Haro MD Pager: [facility] [address] [place] [address] Office:
[2020-02-10 07:45] VITALS: O2SAT 95
[2020-02-10 08:16] VITALS: BP 144/72; PULSE 97; RESP 20; TEMP 36.7; O2SAT 97
[2020-02-10] MEDS: Citalopram 10 MG Tablet PO (08:21)
[2020-02-10] MEDS: amLODIPine 5 MG Tablet PO (08:21)
[2020-02-10] MEDS: Acetaminophen 325 MG Tablet 650 MG PO (08:24)
--- NOTE | 2020-02-10 10:16 | CASEMGMT ---
This RN CM to room to discuss discharge plan with pt at this time. Pt is A/Ox4 at this time. Pt declines any need for any further therapy at d/c at this time. Pt states his can assist, if needed. Pt aware that PCP can order OP/HHC therapy once home, if needed, pt voices understanding. Pt's did enter room as this RN CM leaving and she was updated on all at this time, voices understanding and states no further concerns/needs at this time. Pt voices no further questions/concerns/needs at this time. SStaten RN CM
--- NOTE | 2020-02-10 10:16 | CASEMGMT ---
This RN CM to room to discuss discharge plan with pt at this time. Pt declines any need for any further therapy at d/c at this time. Pt states his can assist, if needed. Pt aware that PCP can order OP/HHC therapy once home, if needed, pt voices understanding. Pt voices no further questions/concerns/needs at this time. SStaten NANCI DELEON
--- NOTE | 2020-02-10 10:38 | DCINST_ITS ---
- Discharge Diagnoses Current Active Problems: Current Active and Chronic Problems (Last Reviewed 02/08/20 @ 00:[address] Arsenio Castro MD) Syncope and collapse (Acute) Iron deficiency anemia (Acute) You will use the following diet at home:: Cardiac Your food should be the consistency of: Regular Your liquids should be the consistency of: Regular/Thin Discharge Activity: Return to Normal Activity Weight Bearing Status: Weight bearing as tolerated Call your doctor if your incision/area has: Sudden Increased Bleeding, Increased Pain/ Swelling, Increased Redness, Foul Smelling Discharge, Swelling at the incision site Call your doctor if you observe: Fever of 101 or Higher, Shortness of breath, Dizziness, Fainting spells, Swelling in the ankles, Chest pain, Increased palpitations (irregular heartbeat) Instructions: ED Near Syncope Vasovagal, Possible Causes of Dizziness or Fainting, What Is Syncope?, Anemia Additional Instructions: to have outpatient PT/OT Allergies/Adverse Reactions: Allergies losartan Adverse Reaction (Intermediate, Verified 02/07/20 21:51) Jitters metoprolol Adverse Reaction (Intermediate, Verified 02/07/20 21:51) Jitters pioglitazone HCl [From Actos] Adverse Reaction (Verified 02/07/20 21:51) Upset Stomach Medications to take at Discharge Levothyroxine [Synthroid] 50 mcg PO DAILY 01/05/14 Pravastatin [Pravachol] 20 mg PO DAILY 01/05/14 metFORMIN HCl [Glucophage] 1,000 mg PO BIDCM 01/05/14 Cholecalciferol (Vitamin D3) [Vitamin D3] 5,000 unit PO DAILY 06/29/15 Finasteride [Proscar] 5 mg PO DAILY 06/29/15 Insulin NPH/Reg 70/30 [Novolin 70/30] 50 units SC BREAKFAST 06/29/15 Pantoprazole Sodium [Protonix] 40 mg PO DAILY 06/29/15 Aspirin [Adult Low Dose Aspirin EC] 81 mg PO DAILY 07/24/15 insulin human U-100 NPH-regulr 70-30 mix 100 unit/mL subcutaneous susp 40 unit SC DINNER ml 10/17/18 furosemide 40 mg tablet 40 mg PO DAILY #90 tab 02/20/19 isosorbide mononitrate 30 mg tablet,extended release 24 hr 30 mg PO DAILY #90 tab 04/15/19 Acetaminophen [Tylenol] 500 mg PO Q6H PRN PRN 06/22/19 clopidogrel 75 mg tablet 75 mg PO DAILY #90 tab 06/24/19 citalopram 10 mg tablet 10 mg PO DAILY tab 07/23/19 amlodipine 5 mg tablet See Rx Instructions .ROUTE .COMPLEX #90 each 10/03/19 Losartan Potassium [Cozaar] 100 mg PO DAILY 02/07/20 Primary Care Physician: Soham Jones III, MD [Primary Care Provider] - Please follow up with your Primary Care Physician in: 1-2 weeks Test Results: Test results from this visit will be discussed in further detail at your follow- up appointment, if applicable. Please Follow Up With: Jose Haro MD When: 1-2 weeks to schedule outpatient colonoscopy and EGD Proposed Discharge Date: 02/10/20
--- NOTE | 2020-02-10 10:41 | PCM.DC.SUM ---
Discharge Date and Diagnosis Date of Admission: 02/07/20 Date of Discharge: 02/10/20 - Primary Discharge Diagnosis Acute Problems: Active Problems (Last Reviewed 02/08/20 @ 00:[address] Arsenio Castro MD) Syncope and collapse (Acute) Iron deficiency anemia (Acute) - Secondary Discharge Diagnosis Chronic Problems: Chronic Problems (Last Reviewed 02/08/20 @ 00:[address] 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 (Chronic) Atherosclerotic heart disease of [place] coronary artery without angina pectoris (Chronic) History of coronary artery stent placement (Chronic 07/01/15) RUDDY to Prox-Mid LAD w/ 3.5 x 20 Promus Stent done 07/01/15 Essential (primary) hypertension (Chronic) HLD (hyperlipidemia) (Chronic) DANYELL (obstructive sleep apnea) (Chronic) Hospital Course and Treatment Imaging Results: Diagnostic Data Hip/Pelvis X-Ray 02/08/20 00:00 IMPRESSION: No acute left hip fracture perceived at 0036 Reported and signed by: Cliff Guerrero MD Electronically Signed: Cliff Guerrero MD at 0:35 EDT Tel , Service support , Pelvis CT 02/08/20 08:00 IMPRESSION: No demonstrated fractures Electronically Signed: Lizandro Juarez MD at 9:03 EDT Tel , Service support , Brain CT 02/09/20 12:51 IMPRESSION: Chronic involutional changes of the brain. Electronically Signed: Lizandro Juarez MD at 14:24 EDT Tel , Service support , Operations: appendectomy Procedures: None Summary of Care Provided: The patient is a 84 year old M with a past medical history as outlined was admitted through the ED on 02/07/2020 with a complaint of syncope. Patient states he was working in his garage and passed out and fell. He hit his head and sustained a scalp laceration which bled significantly. Patient had been on Plavix but stopped taking Plavix because he had been scheduled for a shot in his right hip on 02/12/2020. Was admitted and managed for syncope. EKG showed bifascicular block. Orthostatics were negative. He was hydrated with IV fluids. His scalp was sutured due to the laceration he received. He was also noted to have acute blood loss anemia. Initial hemoglobin in the ED was 11.9 but this subsequently trended down to 9.8 and reached a malachi of 7.8. Repeat CT of the head done was negative for any subdural hematoma. Stool for occult blood done was also negative. Iron panel done showed iron of 39 with TIBC of 352 and iron saturation of 11.1 with ferritin of 16 indicating iron deficiency anemia. Patient was therefore started on oral iron supplementation. General surgery evaluated him and plan was for patient to follow-up with general surgeon outpatient basis for EGD and colonoscopy to be arranged. Patient remained stable and work with physical therapy and did well. He was initially open to outpatient physical therapy but subsequently declined. He remained stable and was discharged home on 02/10/2020. He is follow-up with his primary care doctor within 1 to 2 weeks and also to follow-up with general surgery. Patient seen and examined prior to discharge. He had no complaints and felt well. Review systems otherwise negative. Labs and vitals reviewed. Home medication reviewed and reconciled. O/E: Vital Signs Temp Pulse Resp BP Pulse Ox 98.0 F 97 20 H 144/72 H 97 02/10/20 08:16 02/10/20 08:16 02/10/20 08:16 02/10/20 08:16 02/10/20 08:16 [] General: Alert, Oriented x3, Cooperative, No apparent distress HEENT: Atraumatic, PERRLA, EOMI, Normocephalic, - - has sutured laceration on right scalp Oral: Dry Mucosa Neck: Supple, No JVD, Negative Carotid Bruits Lungs: Clear to auscultation, Normal air movement Cardiovascular: Regular rate, Regular Rhythm, Normal S1, Normal S2, No murmurs Abdomen: Bowel Sounds Present, Soft, Non Tender, Non-Distended, No Hepato-splenomegaly Extremities: No clubbing, No cyanosis, No edema, Capillary Refill Less than 3 Seconds Skin: No rashes, No breakdown Musculoskeletal: No Tenderness to Palpation of Joints or Extremities Lymphatic: No Cervical, Supraclavicular, or Inguinal Adenopathy Neurological: Cranial nerves II-XII grossly intact, Neuro grossly intact, Motor Exam 5/5 strength throughout Psych/Mental Status: Normal Affect, Appropriate, Alert and oriented to time, place, person, mood and affect Patient was also given a prescription for oral iron supplementation. He was discharged home on 02/10/2020. - Physical Exam Vitals/I&O's: Vital Signs Temp Pulse Resp BP Pulse Ox 98.0 F 97 20 H 144/72 H 97 02/10/20 08:16 02/10/20 08:16 02/10/20 08:16 02/10/20 08:16 02/10/20 08:16 Oxygen Flow Rate (L/min) 2 Oxygen Delivery Method Room Air Weight: 235 lb 7.259 oz Body Mass Index (BMI) 40.4 Finger Stick Blood Glucose 67 Orthostatic Vital Signs Start: 02/08/20 04:46 Freq: q24h Status: Active Protocol: Activity Type Activity Date Activity User E-Sign Co-Sign Detail Recorded Client Recorded Date Recorded By Document 02/09/20 03:45 EV [id number] 02/09/20 03:55 EV 02/09/20 03:45 Orthostatic Vitals Standing -Blood Pressure (90/60-120/80 mm Hg) 138/74 H -Extremity Use Left Arm -Pulse Rate (60-100 beats/min) 94 Sitting -Blood Pressure (90/60-120/80 mm Hg) 118/69 -Extremity Use Left Arm -Pulse Rate (60-100 beats/min) 99 Lying -Blood Pressure (90/60-120/80 mm Hg) 120/60 -Extremity Use Left Arm -Pulse Rate (60-100 beats/min) 84 Intake and Output for Last 24 Hours 02/08/20 02/09/20 02/10/20 23:59 23:59 23:59 Intake Total 3203.75 / 3203.75 817.5 / 1057.5 480 / 480 Output Total 100 / 375 1050 / 1825 1075 / 1075 Balance 3103.75 / 2828.75 -232.5 / -767.5 -595 / -595 Microbiology Past 72 Hours 02/09/20 14:00 Stool Stool Occult Blood (YOLANDA) - Final Laboratory Results 02/09/20 08:25: Iron 39 L, TIBC 352, Iron Saturation 11.1 L, Ferritin 16 L 02/09/20 11:33: POC Glucose 233 H 02/09/20 16:16: POC Glucose 171 H 02/09/20 21:53: POC Glucose 217 H 02/10/20 05:40: WBC 5.2, RBC 2.77 L, Hgb 7.9 L, Hct 25.4 L, MCV 91.7, MCH 28.5, MCHC 31.1 L, RDW Std Deviation 54.3 H, RDW Coeff of Perla 16.4 H, Plt Count 211, MPV 9.0, Immature Gran % (Auto) 0.800, Neut % (Auto) 57.4, Lymph % (Auto) 28.0, Wythe % (Auto) 10.7 H, Eos % (Auto) 2.3, Baso % (Auto) 0.8, Absolute Neuts (auto) 3.0, Absolute Lymphs (auto) 1.46, Nucleated RBC % 0 02/10/20 05:40: Sodium 137, Potassium 4.3, Chloride 104, Carbon Dioxide 26.0, Anion Gap 7, BUN 14, Creatinine 1.23, Estim Creat Clear Calc 38.77, Est GFR (MDRD) Af Amer 72, Est GFR (MDRD) Non-Af 60, BUN/Creatinine Ratio 11.4, Glucose 210 H, Calcium 8.7 02/10/20 06:28: POC Glucose 211 H Diagnostic Data Hip/Pelvis X-Ray 02/08/20 00:00 IMPRESSION: No acute left hip fracture perceived at 0036 Reported and signed by: Cliff Guerrero MD Electronically Signed: Cliff Guerrero MD at 0:35 EDT Tel , Service support , Pelvis CT 02/08/20 08:00 IMPRESSION: No demonstrated fractures Electronically Signed: Lizandro Juarez MD at 9:03 EDT Tel , Service support , Brain CT 02/09/20 12:51 IMPRESSION: Chronic involutional changes of the brain. Electronically Signed: Lizandro Juarez MD at 14:24 EDT Tel , Service support , Current Medications Acetaminophen (Tylenol) 650 mg PO Q6H PRN PRN PRN Reason: Pain Score 1-10/Temp > 100.7 F Last Admin: 02/10/20 08:24 Dose: 650 mg Documented by: Amlodipine Besylate (Norvasc) 5 mg PO DAILY [facility] Last Admin: 02/10/20 08:21 Dose: 5 mg Documented by: Cholecalciferol (Vitamin D (25mcg)) 5,000 unit PO DAILY [facility] Last Admin: 02/10/20 08:21 Dose: 5,000 unit Documented by: Citalopram Hydrobromide (Celexa) 10 mg PO DAILY [facility] Last Admin: 02/10/20 08:21 Dose: 10 mg Documented by: Dextrose (D50w Syringe) 0 gm IV X1 PRN; Protocol PRN Reason: Hypoglycemia Glucagon () 1 mg IM .X1 PRN PRN Reason: Hypoglycemia Sodium Chloride () 250 mls @ 15 mls/hr IV .[id number] PRN PRN Reason: Saline Flush Sodium Chloride () 250 mls @ 15 mls/hr IV .[id number] PRN PRN Reason: Additional IVPB Infusion Insulin Human Lispro (Humalog Kwikpen (Bkc)) 0 unit SC ACHS [facility]; Protocol Last Admin: 02/10/20 06:29 Dose: 2 units Documented by: Levothyroxine Sodium (Synthroid) 50 mcg PO DAILY@0600 [facility] Last Admin: 02/10/20 06:29 Dose: 50 mcg Documented by: Ondansetron HCl (Zofran) 4 mg IV Q8H PRN PRN PRN Reason: NAUSEA/VOMITING Oxycodone HCl (Oxyir) 5 mg PO Q4H PRN PRN PRN Reason: Pain Score 4-10/10 Last Admin: 02/10/20 08:24 Dose: 5 mg Documented by: Pravastatin Sodium (Pravachol) 20 mg PO DAILY@2200 SHARON Last Admin: 02/09/20 21:54 Dose: 20 mg Documented by: Senna (Senokot) 2 tablet PO DAILY PRN PRN PRN Reason: CONSTIPATION Last Admin: 02/09/20 13:59 Dose: 2 tablet Documented by: Sodium Chloride () 10 - 40 ml IV UD PRN PRN Reason: SALINE FLUSH Last Admin: 02/09/20 00:56 Dose: 10 ml Documented by: Discharge Diet: Low fat/ Low Cholesterol Discharge Activity: Return to Normal Activity Weight Bearing Status: Weight bearing as tolerated Call your doctor if your incision/area has: Sudden Increased Bleeding, Increased Pain/ Swelling, Increased Redness, Foul Smelling Discharge, Swelling at the incision site Call your doctor if you observe: Fever of 101 or Higher, Shortness of breath, Dizziness, Fainting spells, Swelling in the ankles, Chest pain, Increased palpitations (irregular heartbeat) Home Medications: Medications to take at Discharge Levothyroxine [Synthroid] 50 mcg PO DAILY 01/05/14 Pravastatin [Pravachol] 20 mg PO DAILY 01/05/14 metFORMIN HCl [Glucophage] 1,000 mg PO BIDCM 01/05/14 Cholecalciferol (Vitamin D3) [Vitamin D3] 5,000 unit PO DAILY 06/29/15 Finasteride [Proscar] 5 mg PO DAILY 06/29/15 Insulin NPH/Reg 70/30 [Novolin 70/30] 50 units SC BREAKFAST 06/29/15 Pantoprazole Sodium [Protonix] 40 mg PO DAILY 06/29/15 Aspirin [Adult Low Dose Aspirin EC] 81 mg PO DAILY 07/24/15 insulin human U-100 NPH-regulr 70-30 mix 100 unit/mL subcutaneous susp 40 unit SC DINNER ml 10/17/18 furosemide 40 mg tablet 40 mg PO DAILY #90 tab 02/20/19 isosorbide mononitrate 30 mg tablet,extended release 24 hr 30 mg PO DAILY #90 tab 04/15/19 Acetaminophen [Tylenol] 500 mg PO Q6H PRN PRN 06/22/19 clopidogrel 75 mg tablet 75 mg PO DAILY #90 tab 06/24/19 citalopram 10 mg tablet 10 mg PO DAILY tab 07/23/19 amlodipine 5 mg tablet See Rx Instructions .ROUTE .COMPLEX #90 each 10/03/19 Losartan Potassium [Cozaar] 100 mg PO DAILY 02/07/20 Primary Care Physician: Soham Jones III, MD [Primary Care Provider] - Please follow up with your Primary Care Physician in: 1-2 weeks Please Follow Up With: Jose Haro MD When: 1-2 weeks to schedule outpatient colonoscopy and EGD Patient Instructions: Anemia, What Is Syncope?, Possible Causes of Dizziness or Fainting, ED Near Syncope Vasovagal Disposition: Home Minutes spent on discharge:: 40 Patient Condition:: Stable Medical Necessity - Tobacco Use Smoking Status: Former smoker Meaningful Use Info Meaningful Use Diagnoses (Choose all that apply): None applicable Inpatient E&M: 36647 Disch Hosp
--- NOTE | 2020-02-10 10:52 | PHA.DC.MR ---
Pharmacy Service has performed discharge medication reconciliation for this patient. The patient's discharge medication list was reviewed for discrepancies and discrepancies were resolved. Home Medications Levothyroxine [Synthroid] 50 mcg PO DAILY 01/05/14 Pravastatin [Pravachol] 20 mg PO DAILY 01/05/14 metFORMIN HCl [Glucophage] 1,000 mg PO BIDCM 01/05/14 Cholecalciferol (Vitamin D3) [Vitamin D3] 5,000 unit PO DAILY 06/29/15 Finasteride [Proscar] 5 mg PO DAILY 06/29/15 Insulin NPH/Reg 70/30 [Novolin 70/30] 50 units SC BREAKFAST 06/29/15 Pantoprazole Sodium [Protonix] 40 mg PO DAILY 06/29/15 Aspirin [Adult Low Dose Aspirin EC] 81 mg PO DAILY 07/24/15 insulin human U-100 NPH-regulr 70-30 mix 100 unit/mL subcutaneous susp 40 unit SC DINNER ml 10/17/18 furosemide 40 mg tablet 40 mg PO DAILY #90 tab 02/20/19 isosorbide mononitrate 30 mg tablet,extended release 24 hr 30 mg PO DAILY #90 tab 04/15/19 Acetaminophen [Tylenol] 500 mg PO Q6H PRN PRN 06/22/19 clopidogrel 75 mg tablet 75 mg PO DAILY #90 tab 06/24/19 citalopram 10 mg tablet 10 mg PO DAILY tab 07/23/19 amlodipine 5 mg tablet See Rx Instructions .ROUTE .COMPLEX #90 each 10/03/19 Losartan Potassium [Cozaar] 100 mg PO DAILY 02/07/20
--- NOTE | 2020-02-10 14:42 | CASEMGMT ---
Addendum entered by Sol Lan 02/10/20 15:21: Call back from pt's son and they state that they are going to bring pt back to [facility] ED within the hour so that he can be placed in TCU. Per son, pt is sleeping at this time. Call to FABIÁN Lau to update at this time, voices understanding. Arik RN CM Original Note: This RN CM received a message from [facility] records secretary to call pt's son/ at this time as they now want PT/OT set up as pt has almost fallen since home. Call to pt's /son at this time and son states that they think that pt now needs to go for rehab as he had difficulty getting into van at discharge and getting into bed once home. This RN CM offered HHC but son believes pt needs to go to SNF for rehab and is requesting TCU at this time. Pt's /son aware that pt will need a precert thru insurance for SNF admit at this time, voice understanding. This RN CM advised pt's /son that this RN CM would have to speak with SW in regards to SNF admit, they voice understanding and this RN CM advises will call back after speaking with SW, voice understanding. Per Luda DSEIR, TCU would need precert and a negative COVID test prior to admission to TCU which will take several days and then would need new therapy notes(via HHC) for the precert. Call back to pt's /son and updated on this at this time and this RN CM also offered to set up HHC with SW as well as therapy so that SW could help facilitate but son states concerns about pt safety at home and states 'He(pt) thinks he can do everything on his own and won't ask for assistance.' Son states, 'I am afraid he is going to fall and hurt himself worse.' Son states, 'This all started because Dr. Gayle's office couldn't get him in for the pain shot.' This RN CM advised pt's /son to bring pt back to [facility] ED, if they do not feel as if pt is safe at home at this time. Pt's /son voice understanding and state that they would like to 'talk to some people' and then they will call this RN CM back. Judi DESIR updated on all by Luda DESIR, in case pt comes back to ED at some point, voice understanding. Arik CHRISTINE CM
== END 2020-02-10 10:41 | disposition home or self-care (01) ==
LOC: ED 23:08 → PCU 02-08 03:40
PROVIDERS: Admitting Provider Hospitalist; Emergency Provider Emergency Medicine; PCP Family Medicine; Visit Provider Student in an Organized Health Care Education/Training Program
DX: R55 Syncope and collapse (principal); S01.01XA Laceration without foreign body of scalp, initial encounter; Z23 Encounter for immunization; I45.2 Bifascicular block; I08.1 Rheumatic disorders of both mitral and tricuspid valves; D62 Acute posthemorrhagic anemia; M25.551 Pain in right hip; I25.10 Atherosclerotic heart disease of native coronary artery without angina pectoris; E78.5 Hyperlipidemia, unspecified; G47.33 Obstructive sleep apnea (adult) (pediatric); E11.9 Type 2 diabetes mellitus without complications; I10 Essential (primary) hypertension; K21.9 Gastro-esophageal reflux disease without esophagitis; N40.0 Benign prostatic hyperplasia without lower urinary tract symptoms; E66.9 Obesity, unspecified; E03.9 Hypothyroidism, unspecified; W19.XXXA Unspecified fall, initial encounter; Y93.89 Activity, other specified; Y92.59 Other trade areas as the place of occurrence of the external cause; Z79.899 Other long term (current) drug therapy; Z95.5 Presence of coronary angioplasty implant and graft; Z79.82 Long term (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 of aspirin; Z79.02 Long term (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 of antithrombotics/antiplatelets; Z79.4 Long term (current) use of insulin; Z68.41 Body mass index [BMI] 40.0-44.9, adult; Z87.891 Personal history of nicotine dependence
CPT/HCPCS: 12001; 36415; 70450; 72192; 73502; 80048; 82274; 82728; 82962; 83540; 83550; 84484; 85014; 85018; 85025; 86850; 86900; 86901; 90471; 90715; 93005; 93306; 96361; 96374; 96375; 97110; 97116; 97162; 97165; 97530; 97535; 99218; 99285; J7030; Q9957; A4216; G0378; J2405

== ENCOUNTER 2020-02-10 16:39 | Observation (INO) | payer MEDICARE, SELFPAY ==
[2020-02-08 01:10] VITALS: BMI 40.4
[2020-02-10 16:39] VITALS: BP 135/112; PULSE 91; RESP 18; TEMP 36.4; O2SAT 97; BMI 41.5
--- NOTE | 2020-02-10 17:13 | ED.DCSUM_ITS ---
- ER Visit Summary Date of Service: 02/10/20 Chief Complaint: Fall, generalized weakness History of Present Illness: The patient is a 84 M presenting after fall. Patient was discharged from the hospital this morning. He was admitted for syncopal episode. He was found to have iron deficiency anemia during this visit. He has problems with chronic left hip pain and is awaiting a hip injection. Has been off Plavix since awaiting for this injection which is scheduled for Monday. He was discharged this morning. They had trouble getting him into the car and into the house. He states he tried to walk to his bedroom and his legs gave out and he collapsed. His son was able to catch him. He did not hit his head or lose consciousness. No new injuries. No other complaints. Physical Examination: Vitals are stable. Patient is afebrile. Alert no acute distress. HEENT exam is unremarkable. right scalp sutures intact Neck is nontender Lungs are clear and equal bilaterally. Heart is regular rate and rhythm. Abdomen is soft nontender nondistended. Extremities mild left hip tenderness with active full range of motion Skin is warm and dry. No focal neurologic deficit. Remainder of exam is unremarkable. Emergency Department Course and Treatment: Patient was given Morphine, zofran. CBC shows hemoglobin 7.7, previous 7.9. Chemistries show glucose 235, creatinine 1.42. COVID is pending. Will discuss with the hospitalist for admission for placement. Disposition: Admission Impression: Generalized weakness, fall, anemia, debility This note was generated with [employer] dictation software. It may contain incorrect words, spelling, and punctuation that were not noted in review of the chart prior to signing ED Disposition - Plan for ED Patient: Referrals: Soham Jones III, MD [Primary Care Provider] -
[2020-02-10] MEDS: Ondansetron 4 MG/2 ML Vial IV (17:21)
[2020-02-10] MEDS: Morphine 4 MG/ML Syringe IV (17:22)
[2020-02-10 17:34] LABS: Absolute Lymphocyte Count 1.12 X10^3/uL (0.83-4.51); Absolute Neutrophil Count 3.4 X10^3/uL (2.0-7.7); Basophil# 0.03 X10^3/uL; Basophil% 0.6 % (0-1); Eosinophil# 0.06 X10^3/uL; Eosinophils% 1.1 % (0-5); Hematocrit 24.6 % (40-54); Hemoglobin 7.7 g/dL (13.0-16.5); Lymphocyte # 1.12 X10^3/ul (4.0); Lymphocyte % 21.2 % (19-41); Mean Corp Hgb Conc 31.3 g/dL (32-36); Mean Corpuscular Hgb 28.1 pg (27.0-32.0); Mean Corpuscular Volume 89.8 fL (80-94); Mean Platelet Vol. 9.3 fl (6.2-12.0); Monocyte# 0.59 X10^3/uL; Monocyte% 11.2 % (0-10); NRBC Flagged by Analyzer 0.4 % (0-5); Neutrophil # 3.43 X10^3/uL (2.7-7.7); Platelet Count 231 K/mm3 (150-450); RBC Distribution Width CV 16.5 % (11.6-14.6); RBC Distribution Width SD 53.5 fl (35.1-43.9); Red Blood Count 2.74 M/mm3 (4.6-6.2); White Blood Count 5.3 K/mm3 (4.4-11.0)
[2020-02-10 17:37] LABS: Anion Gap 5 (5-15); BUN 15 mg/dL (7-18); BUN/Creat Ratio 10.6 RATIO (10-20); Calcium,Total 9.1 mg/dL (8.5-10.1); Chloride 105 mmol/L (98-107); Creatinine, Serum 1.42 mg/dL (0.70-1.30); EST Glomerular Filtration Rate 51 mL/min (>60); Est Glom Filt Rate - Afr Amer 61 mL/min (>60); Estimated Creatinine Clearance 33.58 ml/min; Glucose 235 mg/dL (74-106); Potassium 4.2 mmol/L (3.5-5.1); Sodium Level 136 mmol/L (136-145)
--- NOTE | 2020-02-10 17:55 | CM.ED ---
Addendum entered by Judi Lo 02/10/20 20:23: Message left on TCU referral line regarding referral. Original Note: SOCIAL WORK Informant: Dr. Espinoza Reason for Consult: Discharge Planning Updated on RN CM earlier today, anticipated family to bring patient in as unable to care for patient at home. Family wanting SNF. Met with patient and in room. requesting referral to TCU. This worker to leave message on referral line. SW to follow up tomorrow. Requested Dr. Espinoza order COVID test for placement. Plan: Admit Kayleen Lo, RENEWABLE ENERGY CONSULTANT, MUSEUM ARCHIVIST
--- NOTE | 2020-02-10 18:03 | NURSING ---
MED SURG OBS WHITE WEAKNESS, FALL
[2020-02-10 18:26] VITALS: BP 135/65; PULSE 85; RESP 18; TEMP 36.8; O2SAT 94
--- NOTE | 2020-02-10 18:26 | HP.PCM_ITS ---
Problem List (1) Debility Status: Acute (2) CKD (chronic kidney disease) stage 3, GFR 30-59 ml/min Status: Chronic (3) Diabetes Status: Chronic Qualifiers: Diabetes mellitus type: type 2 (4) Iron deficiency anemia Status: Chronic Qualifiers: (5) Essential (primary) hypertension Status: Chronic (6) HLD (hyperlipidemia) Status: Chronic Qualifiers: (7) DANYELL (obstructive sleep apnea) Status: Chronic History of Present Illness Date of Admission: 02/10/20 Chief Complaint: weakness, left hip pain The patient is a 84 year old M with pmhx of CKDIII, DANYELL, DMt2, iron defiency anemia, dilated CM, notable for 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 The patient left the hospital and had worsening weakness. He attributes this to his left hip pain. He states he is supposed to have this injected with cortisone monday with Dr. Gayle. Previous admission he had negative orthostatic vitals, negative pelvic CT and xray. He was found to have significant iron deficiency anemia however stool hemoccult was negative. He was placed on oral iron and recommended to have outpatient endoscopy. Today after leaving he had significant difficulty getting in and out of the car, his son helped him into the house. The patient normally walks with a rollator. He attempted to get into bed and fell landing in a sitting position. He denies worsening of his left hip pain, and denies sacral paint. This fall prompted return to the ER. [] Past Medical History Past Medical History (Chronic Problems): Chronic Problems (Last Reviewed 02/08/20 @ 00:[address] 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) I45.2 Premature ventricular contractions (Chronic) I49.3 Atherosclerotic heart disease of [place] coronary artery without angina pectoris (Chronic) I25.10 Essential (primary) hypertension (Chronic) I10 HLD (hyperlipidemia) (Chronic) E78.5 Vocal cord dysfunction (Inactive) J38.3 DANYELL (obstructive sleep apnea) (Chronic) G47.33 BMI 40.0-44.9, adult Z68.41 Benign prostatic hypertrophy N40.0 Diabetes mellitus type 2 in obese E11.9, E66.9 GERD (gastroesophageal reflux disease) K21.9 Hiatal hernia K44.9 Hypothyroid E03.9 Nephrolithiasis Obesity E66.9 Anemia D64.9 Appendicitis (Resolved) K37 Chest pain (Resolved) R07.9 Cough (Resolved) R05 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 I42.0 Dyspnea (Resolved) R06.00 Right flank pain (Resolved) R10.9 Shortness of breath (Resolved) R06.02 Upper respiratory infection (Resolved) J06.9 Nonrheumatic tricuspid (valve) insufficiency (Ruled-out) I36.1 Allergies losartan Adverse Reaction (Intermediate, Verified 02/10/20 16:43) Jitters metoprolol Adverse Reaction (Intermediate, Verified 02/10/20 16:43) Jitters pioglitazone HCl [From Actos] Adverse Reaction (Verified 02/10/20 16:43) Upset Stomach Home Medications: Ambulatory Orders Medication Instructions Recorded Levothyroxine [Synthroid] 50 mcg PO DAILY 01/05/14 Pravastatin [Pravachol] 20 mg PO DAILY 01/05/14 metFORMIN HCl [Glucophage] 1,000 mg PO BIDCM 01/05/14 Cholecalciferol (Vitamin D3) 5,000 unit PO DAILY 06/29/15 [Vitamin D3] Finasteride [Proscar] 5 mg PO DAILY 06/29/15 Insulin NPH/Reg 70/30 [Novolin 50 units SC BREAKFAST 06/29/15 70/30] Pantoprazole Sodium [Protonix] 40 mg PO DAILY 06/29/15 Aspirin [Adult Low Dose Aspirin EC] 81 mg PO DAILY 07/24/15 insulin human U-100 NPH-regulr 40 unit SC DINNER ml 10/17/18 70-30 mix 100 unit/mL subcutaneous susp furosemide 40 mg tablet 40 mg PO DAILY #90 tab 02/20/19 isosorbide mononitrate 30 mg 30 mg PO DAILY #90 tab 04/15/19 tablet,extended release 24 hr Acetaminophen [Tylenol] 500 mg PO Q6H PRN PRN 06/22/19 clopidogrel 75 mg tablet 75 mg PO DAILY #90 tab 06/24/19 citalopram 10 mg tablet 10 mg PO DAILY tab 07/23/19 amlodipine 5 mg tablet See Rx Instructions .ROUTE 10/03/19 .COMPLEX #90 each Losartan Potassium [Cozaar] 100 mg PO DAILY 02/07/20 Ferrous Sulfate 325 mg PO BID #60 tab 02/10/20 Surgical History: Surgical History (Last Reviewed 02/08/20 @ 00:[address] Arsenio Castro MD) History of coronary artery stent placement (Chronic) Onset Date: 07/01/15 Z95.5 RUDDY to Prox-Mid LAD w/ 3.5 x 20 Promus Stent done 07/01/15 History of appendectomy Z90.49 History of back surgery Z98.890 History of left heart catheterization Z98.890 History of lymph node biopsy Z98.890 History of right and left heart catheterization Onset Date: 07/02/18 Z98.890 Surgical History: angioplasty, - - lymph nodesw in chest and aorta accidentally nicked and had to have chest opened to repair it. Psychiatric History: - Lives: Spouse/ Significant Other Smoking Status: Former smoker Tobacco Use: Non-smoker Drugs: None - *Family History Maternal Family History: Family History (Last Reviewed 02/10/20 @ 18:38 by NEERAJ Galvan) Mother CAD (coronary artery disease) Brother CAD (coronary artery disease) Myocardial infarction Daughter Asthma Father Cancer Sister Breast cancer Sister Cardiomyopathy History Items: Heart Disease, Unknown, - Review of Systems Constitutional: Reports: Weakness. Denies: Chills, Fever, Weight Change HEENT: Denies: Head Aches, Sinus Congestion, Sinus Drainage Cardiovascular: Denies: Chest Pain, Heaviness, Light Headedness, Palpitations Respiratory: Denies: Cough, Shortness of Breath, Shortness of breath at rest, Sputum production Gastrointestinal: Denies: Abdominal Pain, Nausea, Vomiting Genitourinary: Denies: Dysuria Musculoskeletal: Denies: Joint Pain, Joint Tenderness Skin: Denies: Rash, Wounds Neurological: Denies: Numbness, Tingling, Focal weakness Psychiatric: Denies: Anxiety, Depression, Homicidal Ideations, Suicidal Ideations Hematologic/ Lymphatic: Denies: Easy Bruising, Easy Bleeding VTE Information - Inpt Only VTE Present on Admission: No VTE Mechan Device Prophylaxis: SCD's VTE Pharm Prophylaxis ordered?: No Patient Problems: Active and Suspected Problems (Last Reviewed 02/08/20 @ 00:[address] Arsenio Castro MD) Debility (Acute) - Physical Exam Vitals/I&O's: Vital Signs Temp Pulse Resp BP Pulse Ox 97.6 F L 91 18 135/112 H 97 02/10/20 16:39 02/10/20 16:39 02/10/20 16:39 02/10/20 16:39 02/10/20 16:39 Oxygen Delivery Method Room Air Weight: 242 lb Body Mass Index (BMI) 41.5 Finger Stick Blood Glucose 67 General: Alert, Oriented x3, Cooperative HEENT: Atraumatic, PERRLA, EOMI, Normocephalic Neck: Supple, No JVD, Negative Carotid Bruits Lungs: Clear to auscultation, Normal air movement Cardiovascular: Regular rate, No murmurs Abdomen: Bowel Sounds Present, Soft, Non Tender Extremities: No edema, Capillary Refill Less than 3 Seconds Skin: No rashes, No breakdown Musculoskeletal: No Tenderness to Palpation of Joints or Extremities Neurological: Cranial nerves II-XII grossly intact Psych/Mental Status: Normal Affect, Appropriate, Alert and oriented to time, place, person, mood and affect Laboratory Results 02/10/20 17:15: WBC 5.3, RBC 2.74 L, Hgb 7.7 L, Hct 24.6 L, MCV 89.8, MCH 28.1, MCHC 31.3 L, RDW Std Deviation 53.5 H, RDW Coeff of Perla 16.5 H, Plt Count 231, MPV 9.3, Immature Gran % (Auto) 0.900, Neut % (Auto) 65.0, Lymph % (Auto) 21.2, Hall % (Auto) 11.2 H, Eos % (Auto) 1.1, Baso % (Auto) 0.6, Absolute Neuts (auto) 3.4, Absolute Lymphs (auto) 1.12, Nucleated RBC % 0.4 02/10/20 17:15: Sodium 136, Potassium 4.2, Chloride 105, Carbon Dioxide 26.0, Anion Gap 5, BUN 15, Creatinine 1.42 H, Estim Creat Clear Calc 33.58, Est GFR (MDRD) Af Amer 61, Est GFR (MDRD) Non-Af 51 L, BUN/Creatinine Ratio 10.6, Glucose 235 H, Calcium 9.1 02/10/20 17:57: COVID-19 (VÍCTOR) Pending Assessment/Plan All Active Problems (Last Reviewed 02/08/20 @ 00:[address] Arsenio Castro MD) Syncope and collapse (Acute) Debility (Acute) Appendicitis (Resolved) Chest pain (Resolved) Cough (Resolved) Dyspnea (Resolved) Right flank pain (Resolved) Shortness of breath (Resolved) Upper respiratory infection (Resolved) Nonrheumatic tricuspid (valve) insufficiency (Ruled-out) 1. Debility, falls, left hip pain - patient failed at home after recent admission. Negative CT pelvis and hip xray from recent admission. Consult Dr. Gayle for left hip injection on . continue to hold plavix. Obtain PTOT evals. If patient has significant pain relief and benefit from injection he may be able to go home, otherwise he is appropriate for SNF. Recent orthostatic vitals neg. 2. Chronic iron deficiency anemia - hemoccult negative recently. iron studies with low iron, iron sat, ferritin. This is complicating his weakness and falls. He is on oral iron. Will replete iron stores with venofer qd. Normocytic. Check TSH/folate/b12. Continue PPI. 3. CKDIII - stable 4. DMt2 with morbid obesity - recent a1c 7.1 on 01/19. continue home regimen + SSI. Dye Tank Tender consult. 5. BPH - proscar 6. Depression/anxiety 7. HTN - stable 8. HLD - statin 9. DANYELL - CPAP qhs DVT ppx: SCDs DC planning: SNF vs [facility] This patient was seen by Naresh Kenyon PA-C under the supervision of Doctor Antwan.
[2020-02-10 20:00] LABS: Probe Check PASS; Specimen Processing Control PASS
[2020-02-10 20:01] VITALS: BP 163/75; PULSE 69; RESP 20; O2SAT 96
[2020-02-10 20:40] VITALS: BP 162/89; PULSE 59; RESP 18; TEMP 36.9; O2SAT 97
[2020-02-10 20:50] VITALS: BMI 41.0; BMI 41.1
[2020-02-10 21:26] LABS: Magnesium 1.8 mg/dL (1.6-2.6); T4 Free Direct 1.06 ng/dL (0.76-1.46); Thyroid Stim Hormone (TSH) 2.69 uIU/mL (0.358-3.74)
[2020-02-10] MEDS: Pravastatin 20 MG Tablet PO (22:45)
[2020-02-10] MEDS: Insulin Lispro 100 UNIT/ML INSULN.PEN SC (22:51)
[2020-02-10 23:00] LABS: Bedside Glucose 245 mg/dL (70-110)
[2020-02-11] VITALS (10 sets, daily range): BP systolic 104–145; BP diastolic 51–77; PULSE 54–90; RESP 18–20; TEMP 36.4–37.2; O2SAT 90–99
[2020-02-11] MEDS: oxyCODONE 5 MG Tablet PO ×3 (02:07→17:35)
[2020-02-11] MEDS: Levothyroxine 50 MCG Tablet PO (05:49)
[2020-02-11 06:23] LABS: ALB/GLOB Ratio 0.8 RATIO (0.9-2.4); AST(SGOT) 37 U/L (15-37); Alanine Aminotransfer ALT/SGPT 33 U/L (16-61); Albumin, Serum 2.6 g/dL (3.2-5.0); Alkaline Phosphatase 24 U/L (45-117); Anion Gap 6 (5-15); BUN 11 mg/dL (7-18); BUN/Creat Ratio 9.5 RATIO (10-20); Calcium,Total 8.2 mg/dL (8.5-10.1); Chloride 105 mmol/L (98-107); Creatinine, Serum 1.16 mg/dL (0.70-1.30); EST Glomerular Filtration Rate 64 mL/min (>60); Est Glom Filt Rate - Afr Amer 77 mL/min (>60); Estimated Creatinine Clearance 41.11 ml/min; Globulin 3.3 g/dL (2.2-4.2); Glucose 191 mg/dL (74-106); Protein, Total 5.9 g/dL (6.4-8.2); Sodium Level 134 mmol/L (136-145)
--- NOTE | 2020-02-11 08:00 | CASEMGMT ---
Addendum entered by Luda Roberts 02/11/20 11:31: SW spoke w/pt and in room, explained referral was made to TCU. SW explained the insurance process with TCU, and that pt will need an authorization to go to TCU from insurance. SW also explained that if pt is moving well after his injection tomorrow he would be able to go home instead of going to TCU. After much discussion, pt and state understanding. SW will continue to follow, PT/OT evaluations are still pending. MILLIE Cueto Original Note: SW spoke w/Ilana in TCU, she will start precert once pt has PT/OT evaluations today. MILLIE Cueto
[2020-02-11] MEDS: Aspirin E.C. 81 MG Tablet PO (08:09)
[2020-02-11] MEDS: Insulin Human 75/25 Kwickpen 50 UNIT SC (08:09)
[2020-02-11] MEDS: Insulin Lispro 100 UNIT/ML INSULN.PEN SC ×3 (08:11→16:40)
[2020-02-11 08:44] LABS: Vitamin B12 161 pg/mL (211-911)
[2020-02-11] MEDS: 0.9% Saline Lock 10 ML Syringe IV (09:04)
[2020-02-11] MEDS: amLODIPine 5 MG Tablet PO (09:05)
[2020-02-11] MEDS: Pantoprazole Sodium 40 MG Tablet PO (09:05)
[2020-02-11] MEDS: Citalopram 10 MG Tablet PO (09:05)
[2020-02-11] MEDS: Isosorbide Mononitrate 30 MG Tablet PO (09:05)
[2020-02-11] MEDS: Furosemide 40 MG Tablet PO (09:05)
[2020-02-11] MEDS: Finasteride 5 MG Tablet PO (09:06)
[2020-02-11 09:10] LABS: Bedside Glucose 195 mg/dL (70-110)
[2020-02-11 10:56] LABS: Absolute Lymphocyte Count 1.21 X10^3/uL (0.83-4.51); Absolute Neutrophil Count 3.4 X10^3/uL (2.0-7.7); Basophil# 0.03 X10^3/uL; Basophil% 0.6 % (0-1); Eosinophils% 1.9 % (0-5); Hematocrit 25.5 % (40-54); Hemoglobin 7.4 g/dL (13.0-16.5); Lymphocyte # 1.21 X10^3/ul (4.0); Lymphocyte % 22.8 % (19-41); Mean Corpuscular Hgb 27.4 pg (27.0-32.0); Mean Corpuscular Volume 94.4 fL (80-94); Mean Platelet Vol. 9.4 fl (6.2-12.0); Monocyte# 0.58 X10^3/uL; Monocyte% 10.9 % (0-10); NRBC Flagged by Analyzer 0.4 % (0-5); Neutrophil # 3.36 X10^3/uL (2.7-7.7); Neutrophil % 63.2 % (47-70); Platelet Count 221 K/mm3 (150-450); RBC Distribution Width SD 58.3 fl (35.1-43.9); White Blood Count 5.3 K/mm3 (4.4-11.0)
[2020-02-11] MEDS: Ferrous Sulfate 325 MG Tablet PO ×2 (11:16→16:39)
--- NOTE | 2020-02-11 11:35 | PCM.PN.HOSP ---
<Naresh Kenyon - Last Filed: 02/11/20 11:35> Patient Problems: Active and Suspected Problems (Last Reviewed 02/08/20 @ 00:[address] Arsenio Castro MD) Debility (Acute) Reason for Visit: Left hip pain and inability to walk Subjective: Ongoing L hip pain. Pt up to chair at bedside but still able to ambulate today. Otherwise, doing well no acute issues. Vitals/I&O's: Vital Signs Temp Pulse Resp BP Pulse Ox 98.0 F 90 18 145/77 H 95 02/11/20 09:01 02/11/20 09:01 02/11/20 09:01 02/11/20 09:01 02/11/20 09:01 Oxygen Delivery Method Room Air Weight: 239 lb 3.225 oz Body Mass Index (BMI) 41.0 Finger Stick Blood Glucose 67 Intake and Output for Last 24 Hours 02/09/20 02/10/20 02/11/20 23:59 23:59 23:59 Intake Total 110 / 350 480 / 480 Output Total 550 / 550 Balance 110 / 350 -70 / -70 General: Alert, Oriented x3, Cooperative HEENT: Atraumatic, PERRLA, EOMI, Normocephalic Neck: Supple, No JVD, Negative Carotid Bruits Lungs: Clear to auscultation, Normal air movement Cardiovascular: Regular rate, No murmurs Abdomen: Bowel Sounds Present, Soft, Non Tender, Obese Extremities: Capillary Refill Less than 3 Seconds, Edema - 1-2+ pitting edema BLE Skin: No rashes, No breakdown Musculoskeletal: No Tenderness to Palpation of Joints or Extremities Neurological: Cranial nerves II-XII grossly intact Psych/Mental Status: Normal Affect, Appropriate, Alert and oriented to time, place, person, mood and affect Laboratory Results 02/10/20 17:15: WBC 5.3, RBC 2.74 L, Hgb 7.7 L, Hct 24.6 L, MCV 89.8, MCH 28.1, MCHC 31.3 L, RDW Std Deviation 53.5 H, RDW Coeff of Perla 16.5 H, Plt Count 231, MPV 9.3, Immature Gran % (Auto) 0.900, Neut % (Auto) 65.0, Lymph % (Auto) 21.2, [place] % (Auto) 11.2 H, Eos % (Auto) 1.1, Baso % (Auto) 0.6, Absolute Neuts (auto) 3.4, Absolute Lymphs (auto) 1.12, Nucleated RBC % 0.4 02/10/20 17:15: Sodium 136, Potassium 4.2, Chloride 105, Carbon Dioxide 26.0, Anion Gap 5, BUN 15, Creatinine 1.42 H, Estim Creat Clear Calc 33.58, Est GFR (MDRD) Af Amer 61, Est GFR (MDRD) Non-Af 51 L, BUN/Creatinine Ratio 10.6, Glucose 235 H, Calcium 9.1 02/10/20 17:15: Folate 8.30 02/10/20 17:15: Magnesium 1.8, TSH 2.69, Free T4 1.06 02/10/20 17:57: COVID-19 (VÍCTOR) Negative 02/10/20 21:42: POC Glucose 245 H 02/11/20 05:24: Vitamin B12 161 L 02/11/20 05:24: WBC Cancelled, Corrected WBC Cancelled, RBC Cancelled, Hgb Cancelled, Hct Cancelled, MCV Cancelled, MCH Cancelled, MCHC Cancelled, RDW Std Deviation Cancelled, RDW Coeff of Perla Cancelled, Plt Count Cancelled, MPV Cancelled, Immature Gran % (Auto) Cancelled, Neut % (Auto) Cancelled, Lymph % (Auto) Cancelled, [place] % (Auto) Cancelled, Eos % (Auto) Cancelled, Baso % (Auto) Cancelled, Absolute Neuts (auto) Cancelled, Absolute Lymphs (auto) Cancelled, Total Counted Cancelled, Neutrophils % (Manual) Cancelled, Band Neutrophils % Cancelled, Lymphocytes % (Manual) Cancelled, Monocytes % (Manual) Cancelled, Eosinophils % (Manual) Cancelled, Basophils % (Manual) Cancelled, Metamyelocytes % Cancelled, Myelocytes % Cancelled, Promyelocytes % Cancelled, Blast Cells % Cancelled, Plasma Cell % (Manual) Cancelled, Other Cells % Cancelled, Nucleated RBC % Cancelled, Nucleated RBCs/100 WBC Cancelled, Differential Comment Cancelled, Diff Path Review Cancelled, Hypersegmented Neuts Cancelled, Atypical Lymphocytes Cancelled, Reactive Lymphocytes Cancelled, Smudge Cells Cancelled, Toxic Granulation Cancelled, Toxic Vacuolation Cancelled, Dohle Bodies Cancelled, Elisabeth Rods Cancelled, Platelet Estimate Cancelled, Plt Morphology Comment Cancelled, RBC Morphology Cancelled, Polychromasia Cancelled, Hypochromasia Cancelled, Poikilocytosis Cancelled, Basophilic Stippling Cancelled, Anisocytosis Cancelled, Microcytosis Cancelled, Macrocytosis Cancelled, Spherocytes Cancelled, Sickle Cells Cancelled, Target Cells Cancelled, Tear Drop Cells Cancelled, Ovalocytes Cancelled, Stomatocytes Cancelled, [place]-Olin Bodies Cancelled, Greenbrier Cells Cancelled, Bite Cells Cancelled, Crenated Cell Cancelled, Acanthocytes (Spur) Cancelled, Rouleaux Cancelled, Schistocytes Cancelled 02/11/20 05:24: Sodium 134 L, Potassium 4.0, Chloride 105, Carbon Dioxide 23.0, Anion Gap 6, BUN 11, Creatinine 1.16, Estim Creat Clear Calc 41.11, Est GFR (MDRD) Af Amer 77, Est GFR (MDRD) Non-Af 64, BUN/Creatinine Ratio 9.5 L, Glucose 191 H, Calcium 8.2 L, Total Bilirubin 0.60, AST 37, ALT 33, Alkaline Phosphatase 24 L, Total Protein 5.9 L, Albumin 2.6 L, Globulin 3.3, Albumin/Globulin Ratio 0.8 L 02/11/20 05:24: WBC 5.3, RBC 2.70 L, Hgb 7.4 L, Hct 25.5 L, MCV 94.4 H D, MCH 27.4, MCHC 29.0 L D, RDW Std Deviation 58.3 H, RDW Coeff of Perla 17.0 H, Plt Count 221, MPV 9.4, Immature Gran % (Auto) 0.600, Neut % (Auto) 63.2, Lymph % (Auto) 22.8, [place] % (Auto) 10.9 H, Eos % (Auto) 1.9, Baso % (Auto) 0.6, Absolute Neuts (auto) 3.4, Absolute Lymphs (auto) 1.21, Nucleated RBC % 0.4 02/11/20 06:37: POC Glucose 195 H Current Medications Acetaminophen (Tylenol) 650 mg PO Q6H PRN PRN PRN Reason: Pain Score 1-10/Temp > 100.7 F Al Hydroxide/Mg Hydroxide (Mylanta Ii) 30 ml PO Q6H PRN PRN PRN Reason: Gastric Burning Albuterol Sulfate (Ventolin Aerosols) 2.5 mg INHALATION Q2H PRN PRN PRN Reason: Dyspnea, wheezing Amlodipine Besylate (Norvasc) 5 mg PO DAILY [facility] Last Admin: 02/11/20 09:05 Dose: 5 mg Documented by: [facility]) [facility] Last Admin: 02/11/20 08:09 Dose: 81 mg Documented by: Citalopram Hydrobromide (Celexa) 10 mg PO DAILY [facility] Last Admin: 02/11/20 09:05 Dose: 10 mg Documented by: Ferrous Sulfate (Ferrous Sulfate) 325 mg PO BID@1200,1700 [facility] Last Admin: 02/11/20 11:16 Dose: 325 mg Documented by: Finasteride (Proscar) 5 mg PO DAILY [facility] Last Admin: 02/11/20 09:06 Dose: 5 mg Documented by: Furosemide (Lasix) 40 mg PO DAILY [facility] Last Admin: 02/11/20 09:05 Dose: 40 mg Documented by: Guaifenesin (Robitussin) 20 ml PO Q4H PRN PRN PRN Reason: COUGH Hydralazine HCl (Apresoline Iv) 10 mg IV Q4H PRN PRN PRN Reason: SBP > 160 Iron Sucrose 200 mg/ Sodium (Chloride) 110 mls @ 220 mls/hr IV DAILY [facility] Stop: 02/12/20 10:29 Last Admin: 02/11/20 10:24 Dose: Not Given Documented by: Insulin Human Lispro (Humalog Kwikpen (Bkc)) [facility]; Protocol Last Admin: 02/11/20 11:17 Dose: 3 u Documented by: Insulin Lispro Protam/Lispro Human (Humalog Mix 75-25 Kwikpen (Bkc)) 40 unit SC DINNER [facility] Insulin Lispro Protam/Lispro Human (Humalog Mix 75-25 Kwikpen (Bk)) 50 unit SC BREAKFAST [facility] Last Admin: 02/11/20 08:09 Dose: 50 unit Documented by: Isosorbide Mononitrate (Imdur) 30 mg PO DAILY [facility] Last Admin: 02/11/20 09:05 Dose: 30 mg Documented by: Levothyroxine Sodium (Synthroid) 50 mcg PO DAILY@0600 [facility] Last Admin: 02/11/20 05:49 Dose: 50 mcg Documented by: Losartan Potassium (Cozaar) 100 mg PO DAILY [facility] Magnesium Hydroxide (Milk Of Magnesia) 30 ml PO DAILY PRN PRN PRN Reason: Constipation Melatonin (Melatonin) 3 mg PO QHS PRN PRN PRN Reason: INSOMNIA Morphine Sulfate () 4 mg IV Q3H PRN PRN PRN Reason: Pain Score 6-10/10 Ondansetron HCl (Zofran) 4 mg IV Q8H PRN PRN PRN Reason: NAUSEA/VOMITING Oxycodone HCl (Oxyir) 5 mg PO Q4H PRN PRN PRN Reason: Pain Score 4-5/10 Last Admin: 02/11/20 02:07 Dose: 5 mg Documented by: Pantoprazole Sodium (Protonix) 40 mg PO DAILY [facility] Last Admin: 02/11/20 09:05 Dose: 40 mg Documented by: Pravastatin Sodium (Pravachol) 20 mg PO DAILY@2200 [facility] Last Admin: 02/10/20 22:45 Dose: 20 mg Documented by: Prochlorperazine Edisylate (Compazine Iv) 5 mg IV Q4H PRN PRN PRN Reason: Breakthrough nausea/vomiting Psyllium Hydrophilic Mucilloid (Metamucil) 1 packet PO DAILY PRN PRN PRN Reason: Constipation Senna/Docusate Sodium (Senokot-S, [place]-Colace) 2 tablet PO BID PRN PRN PRN Reason: Constipation Sodium Chloride () 10 - 40 ml IV UD PRN PRN Reason: SALINE FLUSH Last Admin: 02/11/20 09:04 Dose: 10 ml Documented by: Throat Lozenges (Cepacol Sore Throat Lozenge) 1 lozenge MUCOUS MEM Q2H PRN PRN PRN Reason: SORE THROAT STROKE Vital Signs/Narrative: Vital Signs Temp Pulse Resp BP Pulse Ox 02/11/20 09:01 98.0 F 90 18 145/77 H 95 Medical Necessity - Tobacco Use Smoking Status: Former smoker Tobacco Use: Non-smoker Assessment/Plan All Active Problems (Last Reviewed 02/08/20 @ 00:[address] Arsenio Castro MD) Syncope and collapse (Acute) Debility (Acute) Appendicitis (Resolved) Chest pain (Resolved) Cough (Resolved) Dyspnea (Resolved) Right flank pain (Resolved) Shortness of breath (Resolved) Upper respiratory infection (Resolved) Nonrheumatic tricuspid (valve) insufficiency (Ruled-out) 1. Debility, falls, left hip pain - patient failed at home after recent admission. Prior to dc was walking without assist [address] pelvis and hip xray from recent admission. Consult Dr. Gayle for left hip injection on . continue to hold plavix. Obtain PTOT evals. If patient has significant pain relief and benefit from injection he may be able to go home, otherwise he is appropriate for SNF. Recent orthostatic vitals neg. 2. Chronic iron deficiency anemia - hemoccult negative recently. given venofer at admission. continue po iron. trend H/H 3. CKDIII - improved. 4. DMt2 with morbid obesity - recent a1c 7.1 on 01/19. continue home regimen + SSI. [employer] consult. Titrate insulin to response. 5. BPH - proscar 6. Depression/anxiety 7. HTN - stable 8. HLD - statin 9. DANYELL - CPAP qhs DVT ppx: SCDs DC planning: SNF vs C This patient was seen by Naresh Kenyon PA-C under the supervision of Doctor Yamile <Dia Ovalle - Last Filed: 02/11/20 15:31> Vitals/I&O's: Vital Signs Temp Pulse Resp BP Pulse Ox 97.6 F L 79 18 121/67 H 99 02/11/20 15:00 02/11/20 15:00 02/11/20 15:00 02/11/20 15:00 02/11/20 15:00 Oxygen Delivery Method CPAP Weight: 239 lb 3.225 oz Body Mass Index (BMI) 41.0 Finger Stick Blood Glucose 67 Intake and Output for Last 24 Hours 02/09/20 02/10/20 02/11/20 23:59 23:59 23:59 Intake Total 110 / 350 880 / 880 Output Total 550 / 550 Balance 110 / 350 330 / 330 Laboratory Results 02/10/20 17:15: WBC 5.3, RBC 2.74 L, Hgb 7.7 L, Hct 24.6 L, MCV 89.8, MCH 28.1, MCHC 31.3 L, RDW Std Deviation 53.5 H, RDW Coeff of Perla 16.5 H, Plt Count 231, MPV 9.3, Immature Gran % (Auto) 0.900, Neut % (Auto) 65.0, Lymph % (Auto) 21.2, [place] % (Auto) 11.2 H, Eos % (Auto) 1.1, Baso % (Auto) 0.6, Absolute Neuts (auto) 3.4, Absolute Lymphs (auto) 1.12, Nucleated RBC % 0.4 02/10/20 17:15: Sodium 136, Potassium 4.2, Chloride 105, Carbon Dioxide 26.0, Anion Gap 5, BUN 15, Creatinine 1.42 H, Estim Creat Clear Calc 33.58, Est GFR (MDRD) Af Amer 61, Est GFR (MDRD) Non-Af 51 L, BUN/Creatinine Ratio 10.6, Glucose 235 H, Calcium 9.1 02/10/20 17:15: Folate 8.30 02/10/20 17:15: Magnesium 1.8, TSH 2.69, Free T4 1.06 02/10/20 17:57: COVID-19 (VÍCTOR) Negative 02/10/20 21:42: POC Glucose 245 H 02/11/20 05:24: Vitamin B12 161 L 02/11/20 05:24: WBC Cancelled, Corrected WBC Cancelled, RBC Cancelled, Hgb Cancelled, Hct Cancelled, MCV Cancelled, MCH Cancelled, MCHC Cancelled, RDW Std Deviation Cancelled, RDW Coeff of Perla Cancelled, Plt Count Cancelled, MPV Cancelled, Immature Gran % (Auto) Cancelled, Neut % (Auto) Cancelled, Lymph % (Auto) Cancelled, [place] % (Auto) Cancelled, Eos % (Auto) Cancelled, Baso % (Auto) Cancelled, Absolute Neuts (auto) Cancelled, Absolute Lymphs (auto) Cancelled, Total Counted Cancelled, Neutrophils % (Manual) Cancelled, Band Neutrophils % Cancelled, Lymphocytes % (Manual) Cancelled, Monocytes % (Manual) Cancelled, Eosinophils % (Manual) Cancelled, Basophils % (Manual) Cancelled, Metamyelocytes % Cancelled, Myelocytes % Cancelled, Promyelocytes % Cancelled, Blast Cells % Cancelled, Plasma Cell % (Manual) Cancelled, Other Cells % Cancelled, Nucleated RBC % Cancelled, Nucleated RBCs/100 WBC Cancelled, Differential Comment Cancelled, Diff Path Review Cancelled, Hypersegmented Neuts Cancelled, Atypical Lymphocytes Cancelled, Reactive Lymphocytes Cancelled, Smudge Cells Cancelled, Toxic Granulation Cancelled, Toxic Vacuolation Cancelled, Dohle Bodies Cancelled, Elisabeth Rods Cancelled, Platelet Estimate Cancelled, Plt Morphology Comment Cancelled, RBC Morphology Cancelled, Polychromasia Cancelled, Hypochromasia Cancelled, Poikilocytosis Cancelled, Basophilic Stippling Cancelled, Anisocytosis Cancelled, Microcytosis Cancelled, Macrocytosis Cancelled, Spherocytes Cancelled, Sickle Cells Cancelled, Target Cells Cancelled, Tear Drop Cells Cancelled, Ovalocytes Cancelled, Stomatocytes Cancelled, [place]-Olin Bodies Cancelled, Greenbrier Cells Cancelled, Bite Cells Cancelled, Crenated Cell Cancelled, Acanthocytes (Spur) Cancelled, Rouleaux Cancelled, Schistocytes Cancelled 02/11/20 05:24: Sodium 134 L, Potassium 4.0, Chloride 105, Carbon Dioxide 23.0, Anion Gap 6, BUN 11, Creatinine 1.16, Estim Creat Clear Calc 41.11, Est GFR (MDRD) Af Amer 77, Est GFR (MDRD) Non-Af 64, BUN/Creatinine Ratio 9.5 L, Glucose 191 H, Calcium 8.2 L, Total Bilirubin 0.60, AST 37, ALT 33, Alkaline Phosphatase 24 L, Total Protein 5.9 L, Albumin 2.6 L, Globulin 3.3, Albumin/Globulin Ratio 0.8 L 02/11/20 05:24: WBC 5.3, RBC 2.70 L, Hgb 7.4 L, Hct 25.5 L, MCV 94.4 H D, MCH 27.4, MCHC 29.0 L D, RDW Std Deviation 58.3 H, RDW Coeff of Perla 17.0 H, Plt Count 221, MPV 9.4, Immature Gran % (Auto) 0.600, Neut % (Auto) 63.2, Lymph % (Auto) 22.8, [place] % (Auto) 10.9 H, Eos % (Auto) 1.9, Baso % (Auto) 0.6, Absolute Neuts (auto) 3.4, Absolute Lymphs (auto) 1.21, Nucleated RBC % 0.4 02/11/20 06:37: POC Glucose 195 H 02/11/20 11:15: POC Glucose 234 H Current Medications Acetaminophen (Tylenol) 650 mg PO Q6H PRN PRN PRN Reason: Pain Score 1-10/Temp > 100.7 F Al Hydroxide/Mg Hydroxide (Mylanta Ii) 30 ml PO Q6H PRN PRN PRN Reason: Gastric Burning Albuterol Sulfate (Ventolin Aerosols) 2.5 mg INHALATION Q2H PRN PRN PRN Reason: Dyspnea, wheezing Amlodipine Besylate (Norvasc) 5 mg PO DAILY [facility] Last Admin: 02/11/20 09:05 Dose: 5 mg Documented by: [facility]) [facility] Last Admin: 02/11/20 08:09 Dose: 81 mg Documented by: Citalopram Hydrobromide (Celexa) 10 mg PO DAILY [facility] Last Admin: 02/11/20 09:05 Dose: 10 mg Documented by: Ferrous Sulfate (Ferrous Sulfate) 325 mg PO BID@1200,1700 [facility] Last Admin: 02/11/20 11:16 Dose: 325 mg Documented by: Finasteride (Proscar) 5 mg PO DAILY [facility] Last Admin: 02/11/20 09:06 Dose: 5 mg Documented by: Furosemide (Lasix) 40 mg PO DAILY [facility] Last Admin: 02/11/20 09:05 Dose: 40 mg Documented by: Guaifenesin (Robitussin) 20 ml PO Q4H PRN PRN PRN Reason: COUGH Hydralazine HCl (Apresoline Iv) 10 mg IV Q4H PRN PRN PRN Reason: SBP > 160 Insulin Human Lispro (Humalog Kwikpen (Bkc)) [facility]; Protocol Last Admin: 02/11/20 11:17 Dose: 3 u Documented by: Insulin Lispro Protam/Lispro Human (Humalog Mix 75-25 Kwikpen (Bkc)) 40 unit SC DINNER [facility] Insulin Lispro Protam/Lispro Human (Humalog Mix 75-25 Kwikpen (Bkc)) 50 unit SC BREAKFAST [facility] Last Admin: 02/11/20 08:09 Dose: 50 unit Documented by: Isosorbide Mononitrate (Imdur) 30 mg PO DAILY [facility] Last Admin: 02/11/20 09:05 Dose: 30 mg Documented by: Levothyroxine Sodium (Synthroid) 50 mcg PO DAILY@0600 [facility] Last Admin: 02/11/20 05:49 Dose: 50 mcg Documented by: Lorazepam (Ativan) 1 mg PO X1 ONE Stop: 02/12/20 08:01 Magnesium Hydroxide (Milk Of Magnesia) 30 ml PO DAILY PRN PRN PRN Reason: Constipation Melatonin (Melatonin) 3 mg PO QHS PRN PRN PRN Reason: INSOMNIA Morphine Sulfate () 4 mg IV Q3H PRN PRN PRN Reason: Pain Score 6-10/10 Ondansetron HCl (Zofran) 4 mg IV Q8H PRN PRN PRN Reason: NAUSEA/VOMITING Oxycodone HCl (Oxyir) 5 mg PO Q4H PRN PRN PRN Reason: Pain Score 4-5/10 Last Admin: 02/11/20 13:24 Dose: 5 mg Documented by: Pantoprazole Sodium (Protonix) 40 mg PO DAILY [facility] Last Admin: 02/11/20 09:05 Dose: 40 mg Documented by: Pravastatin Sodium (Pravachol) 20 mg PO DAILY@2200 [facility] Last Admin: 02/10/20 22:45 Dose: 20 mg Documented by: Prochlorperazine Edisylate (Compazine Iv) 5 mg IV Q4H PRN PRN PRN Reason: Breakthrough nausea/vomiting Psyllium Hydrophilic Mucilloid (Metamucil) 1 packet PO DAILY PRN PRN PRN Reason: Constipation Senna/Docusate Sodium (Senokot-S, [place]-Colace) 2 tablet PO BID PRN PRN PRN Reason: Constipation Sodium Chloride () 10 - 40 ml IV UD PRN PRN Reason: SALINE FLUSH Last Admin: 02/11/20 09:04 Dose: 10 ml Documented by: Throat Lozenges (Cepacol Sore Throat Lozenge) 1 lozenge MUCOUS MEM Q2H PRN PRN PRN Reason: SORE THROAT STROKE Vital Signs/Narrative: Vital Signs Temp Pulse Resp BP Pulse Ox 02/11/20 15:00 97.6 F L 79 18 121/67 H 99 Assessment/Plan Patient seen by Naresh Kenyon PA-C under my supervision Patient seen and examined. He was admitted after being discharged home 1 day ago. He had refused physical therapy and placement during previous admission. He however went home and was unable to get out of the car, so he was brought back to the hospital. He is now open to placement in 2 physical therapy. He was able to walk 100 feet without assistance yesterday before discharge. Orthopedic surgery consulted for left hip injection on Monday which was already planned. Patient has no complaints and feels well. Pain is well controlled. Review of symptoms otherwise negative. Labs and vitals reviewed. O/E: Vital Signs Temp Pulse Resp BP Pulse Ox 97.6 F L 79 18 121/67 H 99 02/11/20 15:02/11/20 15:02/11/20 15:00 02/11/20 15:02/11/20 15:00 General: Alert, Oriented x3, Cooperative HEENT: Atraumatic, PERRLA, EOMI, Normocephalic Neck: Supple, No JVD, Negative Carotid Bruits Lungs: Clear to auscultation, Normal air movement Cardiovascular: Regular rate, No murmurs Abdomen: Bowel Sounds Present, Soft, Non Tender, Obese Extremities: Capillary Refill Less than 3 Seconds, Edema - 1+ pitting edema BLE Skin: No rashes, No breakdown Musculoskeletal: No Tenderness to Palpation of Joints or Extremities Neurological: Cranial nerves II-XII grossly intact Psych/Mental Status: Normal Affect, Appropriate, Alert and oriented to time, place, person, mood and affect Plan is for left hip injection tomorrow. PT/OT on board. Fall precautions. Patient open to placement now. Case management on board to help with discharge planning. hemoglobin is around 7.4 today and this is all due to the bleeding incurred from scalp laceration. Trend CBC and continue oral iron supplementation. Will transfuse 1 unit of blood to show him up as he has lost about 4 units since he had a scalp laceration a few days ago. Rest as per Naresh Kenyon PA-C's notes which I reviewed and endorsed. OBSV E&M: [id number] Subsequent observation care L2
[2020-02-11 12:16] LABS: Bedside Glucose 234 mg/dL (70-110)
[2020-02-11] MEDS: Magnesium Oxide 400 MG Tablet 800 MG PO (13:24)
--- NOTE | 2020-02-11 15:13 | PCM.CONS.GEN ---
Reason for Consult Date of Consultation: 02/11/20 Reason for Consultation: Hip pain requested by Dr. Kenyon History of Present Illness: The patient is a 84 year old M presents to the hospital with debility due to his increasing left hip pain. Patient was scheduled to have a hip injection tomorrow. He is under my care. Pain is currently a 8 out of 10. He is having difficulty ambulating secondary to this which is require admission to the hospital. We have discussed risks and benefits of this in the office. Previous H&P was completed. His physical examination is largely the same except he has had further difficulties completing activities of daily living. This is required admission to the hospital. He has pain with weightbearing and motion of the hip. He was initially admitted to the hospital after a fall over the weekend and was discharged from the hospital yesterday. He went home and had instability and was brought back to the hospital by his due to his inability to ambulate. They are concerned for falls. He blames this on his left hip pain. He has had corticosteroid injections in the past and responded well. Past Medical History Past Medical History (Chronic Problems): Chronic Problems (Last Reviewed 02/08/20 @ 00:[address] 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) I45.2 Premature ventricular contractions (Chronic) I49.3 Atherosclerotic heart disease of [place] coronary artery without angina pectoris (Chronic) I25.10 Essential (primary) hypertension (Chronic) I10 HLD (hyperlipidemia) (Chronic) E78.5 Vocal cord dysfunction (Inactive) J38.3 DANYELL (obstructive sleep apnea) (Chronic) G47.33 BMI 40.0-44.9, adult Z68.41 Benign prostatic hypertrophy N40.0 Diabetes mellitus type 2 in obese E11.9, E66.9 GERD (gastroesophageal reflux disease) K21.9 Hiatal hernia K44.9 Hypothyroid E03.9 Nephrolithiasis Obesity E66.9 Anemia D64.9 Appendicitis (Resolved) K37 Chest pain (Resolved) R07.9 Cough (Resolved) R05 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 I42.0 Dyspnea (Resolved) R06.00 Right flank pain (Resolved) R10.9 Shortness of breath (Resolved) R06.02 Upper respiratory infection (Resolved) J06.9 Nonrheumatic tricuspid (valve) insufficiency (Ruled-out) I36.1 Allergies losartan Adverse Reaction (Intermediate, Verified 02/10/20 16:43) Jitters metoprolol Adverse Reaction (Intermediate, Verified 02/10/20 16:43) Jitters pioglitazone HCl [From Actos] Adverse Reaction (Verified 02/10/20 16:43) Upset Stomach Home Medications: Ambulatory Orders Medication Instructions Recorded Levothyroxine [Synthroid] 50 mcg PO DAILY 01/05/14 Pravastatin [Pravachol] 20 mg PO DAILY 01/05/14 metFORMIN HCl [Glucophage] 1,000 mg PO BIDCM 01/05/14 Cholecalciferol (Vitamin D3) 5,000 unit PO DAILY 06/29/15 [Vitamin D3] Finasteride [Proscar] 5 mg PO DAILY 06/29/15 Insulin NPH/Reg 70/30 [Novolin 50 units SC BREAKFAST 06/29/15 70/30] Pantoprazole Sodium [Protonix] 40 mg PO DAILY 06/29/15 Aspirin [Adult Low Dose Aspirin EC] 81 mg PO DAILY 07/24/15 insulin human U-100 NPH-regulr 40 unit SC DINNER ml 10/17/18 70-30 mix 100 unit/mL subcutaneous susp furosemide 40 mg tablet 40 mg PO DAILY #90 tab 02/20/19 isosorbide mononitrate 30 mg 30 mg PO DAILY #90 tab 04/15/19 tablet,extended release 24 hr Acetaminophen [Tylenol] 500 mg PO Q6H PRN PRN 06/22/19 clopidogrel 75 mg tablet 75 mg PO DAILY #90 tab 06/24/19 citalopram 10 mg tablet 10 mg PO DAILY tab 07/23/19 Acetaminophen [Tylenol] 650 mg PO Q6H PRN PRN 02/10/20 Amlodipine Besylate [Norvasc] 5 mg PO DAILY 02/10/20 Insulin Lispro [Humalog Kwikpen] See Protocol SQ TIDCM 02/10/20 Oxycodone [Oxyir] 5 mg PO Q4H PRN PRN 02/10/20 Senna [Senokot] 2 tab PO DAILY PRN PRN 02/10/20 Surgical History: Surgical History (Last Reviewed 02/08/20 @ 00:[address] Arsenio Castro MD) History of coronary artery stent placement (Chronic) Onset Date: 07/01/15 Z95.5 RUDDY to Prox-Mid LAD w/ 3.5 x 20 Promus Stent done 07/01/15 History of appendectomy Z90.49 History of back surgery Z98.890 History of left heart catheterization Z98.890 History of lymph node biopsy Z98.890 History of right and left heart catheterization Onset Date: 07/02/18 Z98.890 Surgical History: angioplasty, - - lymph nodesw in chest and aorta accidentally nicked and had to have chest opened to repair it. Psychiatric History: - Lives: Spouse/ Significant Other Smoking Status: Former smoker Tobacco Use: Non-smoker Drugs: None - *Family History Maternal Family History: Family History (Last Reviewed 02/10/20 @ 18:38 by NEERAJ Galvan) Mother CAD (coronary artery disease) Brother CAD (coronary artery disease) Myocardial infarction Daughter Asthma Father Cancer Sister Breast cancer Sister Cardiomyopathy History Items: Heart Disease, Unknown, - Review of Systems Constitutional: Denies: Chills, Fever, Weight Change HEENT: Denies: Head Aches, Sinus Congestion, Sinus Drainage Cardiovascular: Denies: Chest Pain, Palpitations Respiratory: Denies: Cough, Shortness of breath at rest, Sputum production Gastrointestinal: Denies: Abdominal Pain, Nausea, Vomiting Genitourinary: Denies: Dysuria Musculoskeletal: Reports: Joint Pain, Joint Tenderness Skin: Denies: Rash, Wounds Neurological: Denies: Numbness, Tingling, Focal weakness Psychiatric: Denies: Anxiety, Depression, Homicidal Ideations, Suicidal Ideations Hematologic/ Lymphatic: Denies: Easy Bruising, Easy Bleeding Patient Problems: Active and Suspected Problems (Last Reviewed 02/08/20 @ 00:[address] Arsenio Castro MD) Debility (Acute) Objective: Hip x-rays and CT scan of the pelvis were reviewed showing no acute fractures with associated moderate osteoarthritis of the left hip. - Physical Exam Vitals/I&O's: Vital Signs Temp Pulse Resp BP Pulse Ox 98.0 F 90 18 145/77 H 95 02/11/20 09:01 02/11/20 09:01 02/11/20 09:01 02/11/20 09:01 02/11/20 09:01 Oxygen Delivery Method Room Air Weight: 239 lb 3.225 oz Body Mass Index (BMI) 41.0 Finger Stick Blood Glucose 67 Intake and Output for Last 24 Hours 02/09/20 02/10/20 02/11/20 23:59 23:59 23:59 Intake Total 110 / 350 880 / 880 Output Total 550 / 550 Balance 110 / 350 330 / 330 General: Alert, Oriented x3, Cooperative Extremities: - - Left hip: Limited range of motion of the hip. Pain with internal rotation. Neurovascular intact distally. Laboratory Results 02/10/20 17:15: WBC 5.3, RBC 2.74 L, Hgb 7.7 L, Hct 24.6 L, MCV 89.8, MCH 28.1, MCHC 31.3 L, RDW Std Deviation 53.5 H, RDW Coeff of Perla 16.5 H, Plt Count 231, MPV 9.3, Immature Gran % (Auto) 0.900, Neut % (Auto) 65.0, Lymph % (Auto) 21.2, Jerome % (Auto) 11.2 H, Eos % (Auto) 1.1, Baso % (Auto) 0.6, Absolute Neuts (auto) 3.4, Absolute Lymphs (auto) 1.12, Nucleated RBC % 0.4 02/10/20 17:15: Sodium 136, Potassium 4.2, Chloride 105, Carbon Dioxide 26.0, Anion Gap 5, BUN 15, Creatinine 1.42 H, Estim Creat Clear Calc 33.58, Est GFR (MDRD) Af Amer 61, Est GFR (MDRD) Non-Af 51 L, BUN/Creatinine Ratio 10.6, Glucose 235 H, Calcium 9.1 02/10/20 17:15: Folate 8.30 02/10/20 17:15: Magnesium 1.8, TSH 2.69, Free T4 1.06 02/10/20 17:57: COVID-19 (VÍCTOR) Negative 02/10/20 21:42: POC Glucose 245 H 02/11/20 05:24: Vitamin B12 161 L 02/11/20 05:24: WBC Cancelled, Corrected WBC Cancelled, RBC Cancelled, Hgb Cancelled, Hct Cancelled, MCV Cancelled, MCH Cancelled, MCHC Cancelled, RDW Std Deviation Cancelled, RDW Coeff of Perla Cancelled, Plt Count Cancelled, MPV Cancelled, Immature Gran % (Auto) Cancelled, Neut % (Auto) Cancelled, Lymph % (Auto) Cancelled, Jerome % (Auto) Cancelled, Eos % (Auto) Cancelled, Baso % (Auto) Cancelled, Absolute Neuts (auto) Cancelled, Absolute Lymphs (auto) Cancelled, Total Counted Cancelled, Neutrophils % (Manual) Cancelled, Band Neutrophils % Cancelled, Lymphocytes % (Manual) Cancelled, Monocytes % (Manual) Cancelled, Eosinophils % (Manual) Cancelled, Basophils % (Manual) Cancelled, Metamyelocytes % Cancelled, Myelocytes % Cancelled, Promyelocytes % Cancelled, Blast Cells % Cancelled, Plasma Cell % (Manual) Cancelled, Other Cells % Cancelled, Nucleated RBC % Cancelled, Nucleated RBCs/100 WBC Cancelled, Differential Comment Cancelled, Diff Path Review Cancelled, Hypersegmented Neuts Cancelled, Atypical Lymphocytes Cancelled, Reactive Lymphocytes Cancelled, Smudge Cells Cancelled, Toxic Granulation Cancelled, Toxic Vacuolation Cancelled, Dohle Bodies Cancelled, Elisabeth Rods Cancelled, Platelet Estimate Cancelled, Plt Morphology Comment Cancelled, RBC Morphology Cancelled, Polychromasia Cancelled, Hypochromasia Cancelled, Poikilocytosis Cancelled, Basophilic Stippling Cancelled, Anisocytosis Cancelled, Microcytosis Cancelled, Macrocytosis Cancelled, Spherocytes Cancelled, Sickle Cells Cancelled, Target Cells Cancelled, Tear Drop Cells Cancelled, Ovalocytes Cancelled, Stomatocytes Cancelled, [place] Bodies Cancelled, Ap Cells Cancelled, Bite Cells Cancelled, Crenated Cell Cancelled, Acanthocytes (Spur) Cancelled, Rouleaux Cancelled, Schistocytes Cancelled 02/11/20 05:24: Sodium 134 L, Potassium 4.0, Chloride 105, Carbon Dioxide 23.0, Anion Gap 6, BUN 11, Creatinine 1.16, Estim Creat Clear Calc 41.11, Est GFR (MDRD) Af Amer 77, Est GFR (MDRD) Non-Af 64, BUN/Creatinine Ratio 9.5 L, Glucose 191 H, Calcium 8.2 L, Total Bilirubin 0.60, AST 37, ALT 33, Alkaline Phosphatase 24 L, Total Protein 5.9 L, Albumin 2.6 L, Globulin 3.3, Albumin/Globulin Ratio 0.8 L 02/11/20 05:24: WBC 5.3, RBC 2.70 L, Hgb 7.4 L, Hct 25.5 L, MCV 94.4 H D, MCH 27.4, MCHC 29.0 L D, RDW Std Deviation 58.3 H, RDW Coeff of Perla 17.0 H, Plt Count 221, MPV 9.4, Immature Gran % (Auto) 0.600, Neut % (Auto) 63.2, Lymph % (Auto) 22.8, Jerome % (Auto) 10.9 H, Eos % (Auto) 1.9, Baso % (Auto) 0.6, Absolute Neuts (auto) 3.4, Absolute Lymphs (auto) 1.21, Nucleated RBC % 0.4 02/11/20 06:37: POC Glucose 195 H 02/11/20 11:15: POC Glucose 234 H Current Medications Acetaminophen (Tylenol) 650 mg PO Q6H PRN PRN PRN Reason: Pain Score 1-10/Temp > 100.7 F Al Hydroxide/Mg Hydroxide (Mylanta Ii) 30 ml PO Q6H PRN PRN PRN Reason: Gastric Burning Albuterol Sulfate (Ventolin Aerosols) 2.5 mg INHALATION Q2H PRN PRN PRN Reason: Dyspnea, wheezing Amlodipine Besylate (Norvasc) 5 mg PO DAILY [facility] Last Admin: 02/11/20 09:05 Dose: 5 mg Documented by: [facility] Last Admin: 02/11/20 08:09 Dose: 81 mg Documented by: Citalopram Hydrobromide (Celexa) 10 mg PO DAILY [facility] Last Admin: 02/11/20 09:05 Dose: 10 mg Documented by: Ferrous Sulfate (Ferrous Sulfate) 325 mg PO BID@1200,1700 [facility] Last Admin: 02/11/20 11:16 Dose: 325 mg Documented by: Finasteride (Proscar) 5 mg PO DAILY [facility] Last Admin: 02/11/20 09:06 Dose: 5 mg Documented by: Furosemide (Lasix) 40 mg PO DAILY [facility] Last Admin: 02/11/20 09:05 Dose: 40 mg Documented by: Guaifenesin (Robitussin) 20 ml PO Q4H PRN PRN PRN Reason: COUGH Hydralazine HCl (Apresoline Iv) 10 mg IV Q4H PRN PRN PRN Reason: SBP > 160 Insulin Human Lispro (Humalog Kwikpen (Bkc)) 0 unit SC [facility]; Protocol Last Admin: 02/11/20 11:17 Dose: 3 u Documented by: Insulin Lispro Protam/Lispro Human (Humalog Mix 75-25 Kwikpen (Bkc)) 40 unit SC DINNER [facility] Insulin Lispro Protam/Lispro Human (Humalog Mix 75-25 Kwikpen (Bkc)) 50 unit SC BREAKFAST [facility] Last Admin: 02/11/20 08:09 Dose: 50 unit Documented by: Isosorbide Mononitrate (Imdur) 30 mg PO DAILY [facility] Last Admin: 02/11/20 09:05 Dose: 30 mg Documented by: Levothyroxine Sodium (Synthroid) 50 mcg PO DAILY@0600 [facility] Last Admin: 02/11/20 05:49 Dose: 50 mcg Documented by: Magnesium Hydroxide (Milk Of Magnesia) 30 ml PO DAILY PRN PRN PRN Reason: Constipation Melatonin (Melatonin) 3 mg PO QHS PRN PRN PRN Reason: INSOMNIA Morphine Sulfate () 4 mg IV Q3H PRN PRN PRN Reason: Pain Score 6-10/10 Ondansetron HCl (Zofran) 4 mg IV Q8H PRN PRN PRN Reason: NAUSEA/VOMITING Oxycodone HCl (Oxyir) 5 mg PO Q4H PRN PRN PRN Reason: Pain Score 4-5/10 Last Admin: 02/11/20 13:24 Dose: 5 mg Documented by: Pantoprazole Sodium (Protonix) 40 mg PO DAILY [facility] Last Admin: 02/11/20 09:05 Dose: 40 mg Documented by: Pravastatin Sodium (Pravachol) 20 mg PO DAILY@2200 [facility] Last Admin: 02/10/20 22:45 Dose: 20 mg Documented by: Prochlorperazine Edisylate (Compazine Iv) 5 mg IV Q4H PRN PRN PRN Reason: Breakthrough nausea/vomiting Psyllium Hydrophilic Mucilloid (Metamucil) 1 packet PO DAILY PRN PRN PRN Reason: Constipation Senna/Docusate Sodium (Senokot-S, [place]-Colace) 2 tablet PO BID PRN PRN PRN Reason: Constipation Sodium Chloride () 10 - 40 ml IV UD PRN PRN Reason: SALINE FLUSH Last Admin: 02/11/20 09:04 Dose: 10 ml Documented by: Throat Lozenges (Cepacol Sore Throat Lozenge) 1 lozenge MUCOUS MEM Q2H PRN PRN PRN Reason: SORE THROAT Assessment/Plan All Active Problems (Last Reviewed 02/08/20 @ 00:[address] Arsenio Castro MD) Syncope and collapse (Acute) Debility (Acute) Appendicitis (Resolved) Chest pain (Resolved) Cough (Resolved) Dyspnea (Resolved) Right flank pain (Resolved) Shortness of breath (Resolved) Upper respiratory infection (Resolved) Nonrheumatic tricuspid (valve) insufficiency (Ruled-out) Left hip primary osteoarthritis. Natural history of the disease process and treatment options been discussed patient include nonsteroidal anti-inflammatories, exercise, physical therapy, corticosteroid injections and even total joint replacement. This time patient is responded well to corticosteroid injections in the past. We will continue to proceed with his corticosteroid injection which is scheduled for tomorrow his OR time is reserved.
--- NOTE | 2020-02-11 15:27 | CASEMGMT ---
This RN CM to room with MAGALLANES form at this time, explanation done-pt voices understanding, and pt signs MAGALLANES form at this time. Original to chart and copy to pt at this time. Pt voices no further questions/concerns/needs at this time. SStaten NANCI CM
[2020-02-11] MEDS: Acetaminophen 325 MG Tablet 650 MG PO (16:16)
--- NOTE | 2020-02-11 16:16 | CASEMGMT ---
LW in summary tab of NANCY hurt not on file. Pt asleep at present, SW called to let her know, her phone is not taking messages at present. SW will speak w/pt about this again as time allows. MILLIE Cueto
[2020-02-11] MEDS: Insulin Human 75/25 Kwickpen 40 UNIT SC (16:40)
[2020-02-11 17:06] LABS: Bedside Glucose 156 mg/dL (70-110)
[2020-02-11] MEDS: Morphine 4 MG/ML Syringe IV (21:08)
[2020-02-11] MEDS: Pravastatin 20 MG Tablet PO (21:12)
[2020-02-11 21:50] LABS: Bedside Glucose 66 mg/dL (70-110)
[2020-02-12] VITALS (8 sets, daily range): BP systolic 114–162; BP diastolic 59–72; PULSE 74–90; RESP 18; TEMP 36.4–37.1; O2SAT 91–98; BMI 41.0; BMI 41.1
[2020-02-12] MEDS: oxyCODONE 5 MG Tablet PO ×2 (02:26→09:02)
[2020-02-12 05:49] LABS: Hemoglobin 8.2 g/dL (13.0-16.5)
[2020-02-12] MEDS: Levothyroxine 50 MCG Tablet PO (06:14)
[2020-02-12 08:15] LABS: Bedside Glucose 106 mg/dL (70-110)
[2020-02-12] MEDS: Pantoprazole Sodium 40 MG Tablet PO (09:01)
[2020-02-12] MEDS: amLODIPine 5 MG Tablet PO (09:01)
[2020-02-12] MEDS: LORazepam 1 MG Tablet PO (10:26)
[2020-02-12 10:59] LABS: International Normalized Ratio 1.1; Prothrombin Time (Protime)PT. 13.6 SECONDS (11.7-14.9)
[2020-02-12 11:00] LABS: Partial Thromboplast Time 24.2 Seconds (24.1-36.2)
[2020-02-12] MEDS: Bupivacaine Mpf 0.5% 30 ML VIAL (12:22)
[2020-02-12] MEDS: Triamcinolone Acetonide 40 MG/ML Vial (12:22)
--- NOTE | 2020-02-12 12:43 | SUR.PREOP ---
PT BROUGHT BACK TO [facility] AFTER OR. BANDAID TO LEFT GROIN. t 97.7, P70, R16, PO 96%, BP 124/66. T/C TO [facility] RN ON PCU. INFORMED HER THAT PT WAS A STRAIGHT LOCAL AND WOULD BE COMING BACK TO THEM, [facility] AGREEABLE TO PATIENT COMING STRAIGHT BACK TO PCU
[2020-02-12 13:11] LABS: Bedside Glucose 153 mg/dL (70-110)
--- NOTE | 2020-02-12 13:31 | OP.PCM_ITS ---
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 Patient was brought back to the operating room she was placed on the radiolucent table. X-ray was able to find position of the hip under fluoroscopy. Starting point was verified. Pulse was verified. Area was prepped with chlorhexidine and draped out sterilely. 3 mL of 1% lidocaine were given for topical anesthetic. 20-gauge needle was used to find the starting point under fluoroscopy. Needle was advanced to the joint. Small amount of dye was placed in the joint to verify intra-articular position. Once was done 2 mL of Kenalog and 3 mL of 0.5% bu pivacaine were injected into the joint with good back pressure. Spinal needle was removed from the joint pressure was held and Band-Aid was placed. Patient was transferred back to the recovery room for discharge home. Patient can resume activities as tolerated. - Complications No intraoperative complications - Admit VTE Documentation VTE Present on Admission: No VTE Pharm Prophylaxis ordered?: No Reason prophylaxis not ordered:: Treatment Not Indicated
--- NOTE | 2020-02-12 13:55 | PN_ITS ---
<Naresh Kenyon - Last Filed: 02/12/20 14:07> Patient Problems: Active and Suspected Problems (Last Reviewed 02/08/20 @ 00:[address] Arsenio Castro MD) Debility (Acute) Subjective: Upright in chair at bedside NAD. Pt seen and examined prior to injection. No improvement in pain. Has not ambulated yet. Pt and planning for SNF after this admission. He does feel that he had some overall improvement in fatigue and generalized weakness since receiving blood. Vitals/I&O's: Vital Signs Temp Pulse Resp BP Pulse Ox 97.7 F L 75 18 132/65 H 94 02/12/20 12:50 02/12/20 12:50 02/12/20 12:50 02/12/20 12:50 02/12/20 12:50 Oxygen Delivery Method Room Air Weight: 239 lb 3.225 oz Body Mass Index (BMI) 41.0 Finger Stick Blood Glucose 67 Intake and Output for Last 24 Hours 02/10/20 02/11/20 02/12/20 23:59 23:59 23:59 Intake Total 110 / 350 1400 / 1400 600 / 600 Output Total 1350 / 1350 550 / 550 Balance 110 / 350 50 / 50 50 / 50 General: Alert, Oriented x3, Cooperative HEENT: Atraumatic, PERRLA, EOMI, Normocephalic Neck: Supple, No JVD, Negative Carotid Bruits Lungs: Clear to auscultation, Normal air movement Cardiovascular: Regular rate, No murmurs Abdomen: Bowel Sounds Present, Soft, Non Tender Extremities: No edema, Capillary Refill Less than 3 Seconds Skin: No rashes, No breakdown Musculoskeletal: No Tenderness to Palpation of Joints or Extremities Neurological: Cranial nerves II-XII grossly intact Psych/Mental Status: Normal Affect, Appropriate Laboratory Results 02/11/20 16:37: POC Glucose 156 H 02/11/20 18:02: Blood Type A POSITIVE, Antibody Screen NEGATIVE, Crossmatch See Detail 02/11/20 21:11: POC Glucose 66 L 02/12/20 05:24: Hgb 8.2 L, Hct 27.0 L 02/12/20 05:24: Hemoglobin A1c 7.0 H 02/12/20 07:47: POC Glucose 106 02/12/20 10:12: PT 13.6, INR 1.1, APTT 24.2 02/12/20 12:57: POC Glucose 153 H Current Medications Acetaminophen (Tylenol) 650 mg PO Q6H PRN PRN PRN Reason: Pain Score 1-10/Temp > 100.7 F Last Admin: 02/11/20 16:16 Dose: 650 mg Documented by: Al Hydroxide/Mg Hydroxide (Mylanta Ii) 30 ml PO Q6H PRN PRN PRN Reason: Gastric Burning Albuterol Sulfate (Ventolin Aerosols) 2.5 mg INHALATION Q2H PRN PRN PRN Reason: Dyspnea, wheezing Amlodipine Besylate (Norvasc) 5 mg PO DAILY [facility] Last Admin: 02/12/20 09:01 Dose: 5 mg Documented by: [facility] Last Admin: 02/12/20 08:22 Dose: Not Given Documented by: Citalopram Hydrobromide (Celexa) 10 mg PO DAILY [facility] Last Admin: 02/11/20 09:05 Dose: 10 mg Documented by: Ferrous Sulfate (Ferrous Sulfate) 325 mg PO BID@1200,1700 [facility] Last Admin: 02/11/20 16:39 Dose: 325 mg Documented by: Finasteride (Proscar) 5 mg PO DAILY [facility] Last Admin: 02/11/20 09:06 Dose: 5 mg Documented by: Furosemide (Lasix) 40 mg PO DAILY [facility] Last Admin: 02/11/20 09:05 Dose: 40 mg Documented by: Guaifenesin (Robitussin) 20 ml PO Q4H PRN PRN PRN Reason: COUGH Hydralazine HCl (Apresoline Iv) 10 mg IV Q4H PRN PRN PRN Reason: SBP > 160 Insulin Human Lispro (Humalog Kwikpen (Bkc)) 0 unit SC 4X/DAYCM [facility]; Protocol Last Admin: 02/12/20 07:52 Dose: Not Given Documented by: Insulin Lispro Protam/Lispro Human (Humalog Mix 75-25 Kwikpen (Bkc)) 40 unit SC DINNER [facility] Last Admin: 02/11/20 16:40 Dose: 40 units Documented by: Insulin Lispro Protam/Lispro Human (Humalog Mix 75-25 Kwikpen (Bkc)) 50 unit SC BREAKFAST [facility] Last Admin: 02/12/20 08:58 Dose: Not Given Documented by: Isosorbide Mononitrate (Imdur) 30 mg PO DAILY [facility] Last Admin: 02/11/20 09:05 Dose: 30 mg Documented by: Levothyroxine Sodium (Synthroid) 50 mcg PO DAILY@0600 [facility] Last Admin: 02/12/20 06:14 Dose: 50 mcg Documented by: Magnesium Hydroxide (Milk Of Magnesia) 30 ml PO DAILY PRN PRN PRN Reason: Constipation Melatonin (Melatonin) 3 mg PO QHS PRN PRN PRN Reason: INSOMNIA Morphine Sulfate () 4 mg IV Q3H PRN PRN PRN Reason: Pain Score 6-10/10 Last Admin: 02/11/20 21:08 Dose: 4 mg Documented by: Ondansetron HCl (Zofran) 4 mg IV Q8H PRN PRN PRN Reason: NAUSEA/VOMITING Oxycodone HCl (Oxyir) 5 mg PO Q4H PRN PRN PRN Reason: Pain Score 4-5/10 Last Admin: 02/12/20 09:02 Dose: 5 mg Documented by: Pantoprazole Sodium (Protonix) 40 mg PO DAILY [facility] Last Admin: 02/12/20 09:01 Dose: 40 mg Documented by: Pravastatin Sodium (Pravachol) 20 mg PO DAILY@2200 [facility] Last Admin: 02/11/20 21:12 Dose: 20 mg Documented by: Prochlorperazine Edisylate (Compazine Iv) 5 mg IV Q4H PRN PRN PRN Reason: Breakthrough nausea/vomiting Psyllium Hydrophilic Mucilloid (Metamucil) 1 packet PO DAILY PRN PRN PRN Reason: Constipation Senna/Docusate Sodium (Senokot-S, [place]-Colace) 2 tablet PO BID PRN PRN PRN Reason: Constipation Sodium Chloride () 10 - 40 ml IV UD PRN PRN Reason: SALINE FLUSH Last Admin: 02/11/20 09:04 Dose: 10 ml Documented by: Throat Lozenges (Cepacol Sore Throat Lozenge) 1 lozenge MUCOUS MEM Q2H PRN PRN PRN Reason: SORE THROAT STROKE Vital Signs/Narrative: Vital Signs Temp Pulse Resp BP Pulse Ox 02/12/20 12:50 97.7 F L 75 18 132/65 H 94 Medical Necessity - Tobacco Use Smoking Status: Former smoker Tobacco Use: Non-smoker Assessment/Plan All Active Problems (Last Reviewed 02/08/20 @ 00:[address] Arsenio Castro MD) Syncope and collapse (Acute) Debility (Acute) Appendicitis (Resolved) Chest pain (Resolved) Cough (Resolved) Dyspnea (Resolved) Right flank pain (Resolved) Shortness of breath (Resolved) Upper respiratory infection (Resolved) Nonrheumatic tricuspid (valve) insufficiency (Ruled-out) 1. Debility, falls, left hip pain - steroid injection with ortho today. PTOT as tolerated. 2. Chronic iron deficiency anemia - replace iron, Hgb improved appropriately with 1 unit prbc with good symptoms improvement. 3. CKDIII - stable 4. DMt2 with morbid obesity - recent a1c 7.1 on 01/19. continue home regimen + SSI. [employer] consult. Titrate insulin to response. 5. BPH - proscar 6. Depression/anxiety 7. HTN - stable 8. HLD - statin 9. DANYELL - CPAP qhs DVT ppx: SCDs DC planning: SNF This patient was seen by Naresh Kenyon PA-C under the supervision of Doctor Yamile <Dia Ovalle - Last Filed: 02/12/20 14:39> Vitals/I&O's: Vital Signs Temp Pulse Resp BP Pulse Ox 97.7 F L 75 18 132/65 H 94 02/12/20 12:50 02/12/20 12:50 02/12/20 12:50 02/12/20 12:50 02/12/20 12:50 Oxygen Delivery Method Room Air Weight: 239 lb 3.225 oz Body Mass Index (BMI) 41.0 Finger Stick Blood Glucose 67 Intake and Output for Last 24 Hours 02/10/20 02/11/20 02/12/20 23:59 23:59 23:59 Intake Total 110 / 350 1400 / 1400 600 / 600 Output Total 1350 / 1350 550 / 550 Balance 110 / 350 50 / 50 50 / 50 Laboratory Results 02/11/20 16:37: POC Glucose 156 H 02/11/20 18:02: Blood Type A POSITIVE, Antibody Screen NEGATIVE, Crossmatch See Detail 02/11/20 21:11: POC Glucose 66 L 02/12/20 05:24: Hgb 8.2 L, Hct 27.0 L 02/12/20 05:24: Hemoglobin A1c 7.0 H 02/12/20 07:47: POC Glucose 106 02/12/20 10:12: PT 13.6, INR 1.1, APTT 24.2 02/12/20 12:57: POC Glucose 153 H Current Medications Acetaminophen (Tylenol) 650 mg PO Q6H PRN PRN PRN Reason: Pain Score 1-10/Temp > 100.7 F Last Admin: 02/11/20 16:16 Dose: 650 mg Documented by: Al Hydroxide/Mg Hydroxide (Mylanta Ii) 30 ml PO Q6H PRN PRN PRN Reason: Gastric Burning Albuterol Sulfate (Ventolin Aerosols) 2.5 mg INHALATION Q2H PRN PRN PRN Reason: Dyspnea, wheezing Amlodipine Besylate (Norvasc) 5 mg PO DAILY [facility] Last Admin: 02/12/20 09:01 Dose: 5 mg Documented by: [facility]) [facility] Last Admin: 02/12/20 08:22 Dose: Not Given Documented by: Citalopram Hydrobromide (Celexa) 10 mg PO DAILY [facility] Last Admin: 02/11/20 09:05 Dose: 10 mg Documented by: Ferrous Sulfate (Ferrous Sulfate) 325 mg PO BID@1200,1700 [facility] Last Admin: 02/11/20 16:39 Dose: 325 mg Documented by: Finasteride (Proscar) 5 mg PO DAILY [facility] Last Admin: 02/11/20 09:06 Dose: 5 mg Documented by: Furosemide (Lasix) 40 mg PO DAILY [facility] Last Admin: 02/11/20 09:05 Dose: 40 mg Documented by: Guaifenesin (Robitussin) 20 ml PO Q4H PRN PRN PRN Reason: COUGH Hydralazine HCl (Apresoline Iv) 10 mg IV Q4H PRN PRN PRN Reason: SBP > 160 Insulin Human Lispro (Humalog Kwikpen (Bkc)) [facility]; Protocol Last Admin: 02/12/20 13:56 Dose: Not Given Documented by: Insulin Lispro Protam/Lispro Human (Humalog Mix 75-25 Kwikpen (Bkc)) 40 unit SC DINNER [facility] Last Admin: 02/11/20 16:40 Dose: 40 units Documented by: Insulin Lispro Protam/Lispro Human (Humalog Mix 75-25 [place] (Bk)) 50 unit SC BREAKFAST [facility] Last Admin: 02/12/20 08:58 Dose: Not Given Documented by: Isosorbide Mononitrate (Imdur) 30 mg PO DAILY [facility] Last Admin: 02/11/20 09:05 Dose: 30 mg Documented by: Levothyroxine Sodium (Synthroid) 50 mcg PO DAILY@0600 [facility] Last Admin: 02/12/20 06:14 Dose: 50 mcg Documented by: Magnesium Hydroxide (Milk Of Magnesia) 30 ml PO DAILY PRN PRN PRN Reason: Constipation Melatonin (Melatonin) 3 mg PO QHS PRN PRN PRN Reason: INSOMNIA Morphine Sulfate () 4 mg IV Q3H PRN PRN PRN Reason: Pain Score 6-10/10 Last Admin: 02/11/20 21:08 Dose: 4 mg Documented by: Ondansetron HCl (Zofran) 4 mg IV Q8H PRN PRN PRN Reason: NAUSEA/VOMITING Oxycodone HCl (Oxyir) 5 mg PO Q4H PRN PRN PRN Reason: Pain Score 4-5/10 Last Admin: 02/12/20 09:02 Dose: 5 mg Documented by: Pantoprazole Sodium (Protonix) 40 mg PO DAILY [facility] Last Admin: 02/12/20 09:01 Dose: 40 mg Documented by: Pravastatin Sodium (Pravachol) 20 mg PO DAILY@2200 [facility] Last Admin: 02/11/20 21:12 Dose: 20 mg Documented by: Prochlorperazine Edisylate (Compazine Iv) 5 mg IV Q4H PRN PRN PRN Reason: Breakthrough nausea/vomiting Psyllium Hydrophilic Mucilloid (Metamucil) 1 packet PO DAILY PRN PRN PRN Reason: Constipation Senna/Docusate Sodium (Senokot-S, [place]-Colace) 2 tablet PO BID PRN PRN PRN Reason: Constipation Sodium Chloride () 10 - 40 ml IV UD PRN PRN Reason: SALINE FLUSH Last Admin: 02/11/20 09:04 Dose: 10 ml Documented by: Throat Lozenges (Cepacol Sore Throat Lozenge) 1 lozenge MUCOUS MEM Q2H PRN PRN PRN Reason: SORE THROAT STROKE Vital Signs/Narrative: Vital Signs Temp Pulse Resp BP Pulse Ox 02/12/20 12:50 97.7 F L 75 18 132/65 H 94 Assessment/Plan Patient seen by Naresh Kenyon PA-C under my supervision Patient seen and examined. He has no complaints today. pain is well controlled. He is due for a steroid injection by orthopedic surgery today. He is awaiting placement. O/E: Vital Signs Temp Pulse Resp BP Pulse Ox 97.7 F L 75 18 132/65 H 94 02/12/20 12:50 02/12/20 12:50 02/12/20 12:50 02/12/20 12:50 02/12/20 12:50 General: Alert, Oriented x3, Cooperative HEENT: Atraumatic, PERRLA, EOMI, Normocephalic Neck: Supple, No JVD, Negative Carotid Bruits Lungs: Clear to auscultation, Normal air movement Cardiovascular: Regular rate, No murmurs Abdomen: Bowel Sounds Present, Soft, Non Tender, Obese Extremities: Capillary Refill Less than 3 Seconds, Edema - 1+ pitting edema BLE Skin: No rashes, No breakdown Musculoskeletal: No Tenderness to Palpation of Joints or Extremities Neurological: Cranial nerves II-XII grossly intact Psych/Mental Status: Normal Affect, Appropriate, Alert and oriented to time, place, person, mood and affect Patient had left hip corticosteroid injection by orthopedic surgery today. Pain remains well controlled. Awaiting placement. He received 1 unit of blood yesterday as hemoglobin dropped 7.4. Hemoglobin today is 8.2. PT OT on board. Fall precautions. Rest as per Naresh Kenyon PA-C's notes which I reviewed and endorsed. OBSV E&M: [id number] Subsequent observation care L2
--- NOTE | 2020-02-12 15:06 | CASEMGMT ---
SW received a call from Ilana in TCU and insurance intends on denying patient's request for SNF. The number to call to schedule a peer to peer is [phone]. The reference number is [id number]. Peer to Peer has to be initiated before at noon. KARLEE spoke with NEERAJ Infante through RN CM and he agreed to do peer to peer. KARLEE called and scheduled peer to peer for today by 7p as NEERAJ Infante is not here tomorrow. Abby GRIFFIN MSW
[2020-02-12] MEDS: Isosorbide Mononitrate 30 MG Tablet PO (15:45)
[2020-02-12] MEDS: Citalopram 10 MG Tablet PO (15:45)
[2020-02-12] MEDS: Finasteride 5 MG Tablet PO (15:45)
[2020-02-12] MEDS: Furosemide 40 MG Tablet PO (15:45)
--- NOTE | 2020-02-12 15:46 | PCM.EXTCARCO ---
- Diet 02/10/20 20:50 Diet: Consistent Carb - Calorie Controlled Food consistency:: Regular Liquid Consistency:: Regular/Thin How many daily calories?: 1800 calorie - Routine Orders/Code Status Suppository Type: Dulcolax 10mg Suppository Frequency: Daily PRN Routine Lab Work: CBC - 5 days, BMP - 5 days Code Status: Full Code - Wound(s) Scalp Wound Type: Laceration Left groin Wound Type: Injection site - Therapies Physical Therapy: Eval and Treat Occupational Therapy: Eval and Treat - Problem/Diagnosis (1) Debility Status: Acute Current Visit: Yes (2) CKD (chronic kidney disease) stage 3, GFR 30-59 ml/min Status: Chronic Current Visit: Yes (3) Diabetes Status: Chronic Current Visit: Yes (4) Iron deficiency anemia Status: Chronic Current Visit: No (5) Essential (primary) hypertension Status: Chronic Current Visit: No (6) HLD (hyperlipidemia) Status: Chronic Current Visit: No (7) DANYELL (obstructive sleep apnea) Status: Chronic Current Visit: No (8) Osteoarthritis Status: Chronic Current Visit: Yes - Allergies/Procedures Done in Hospital Allergies/Adverse Reactions: Allergies losartan Adverse Reaction (Intermediate, Verified 02/10/20 16:43) Jitters metoprolol Adverse Reaction (Intermediate, Verified 02/10/20 16:43) Jitters pioglitazone HCl [From Actos] Adverse Reaction (Verified 02/10/20 16:43) Upset Stomach Procedures: - - left hip steroid injection - Type of Care/Length of Stay Estimated LOS: Convalescent Care Less Than 30 days Type of Care Needed: Skilled Rehab Potential: Fair Prognosis: Fair - Additional Orders/Day of Discharge Day of Discharge: 02/12/20 - Follow Up Care Primary Care Physician: Soham oJnes III, MD [Primary Care Provider] - Please follow up with your Primary Care Physician in: 2 weeks Please Follow Up With: Capo Gayle MD When: as needed
--- NOTE | 2020-02-12 15:48 | PCM.DC.SUM ---
<Naresh Kenyon - Last Filed: 02/12/20 15:48> Discharge Date and Diagnosis - Problem List Patient Problems: Active and Suspected Problems (Last Reviewed 02/08/20 @ 00:[address] Arsenio Castro MD) Debility (Acute) Date of Admission: 02/10/20 Date of Discharge: 02/12/20 - Primary Discharge Diagnosis Acute Problems: Active Problems (Last Reviewed 02/08/20 @ 00:[address] Arsenio Castro MD) Debility 2/2 worsening left hip osteoarthritis Recurrent falls Iron deficiency anemia - Secondary Discharge Diagnosis Chronic Problems: Chronic Problems (Last Reviewed 02/08/20 @ 00:[address] 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) Premature ventricular contractions (Chronic) Atherosclerotic heart disease of [place] coronary artery without angina pectoris (Chronic) History of coronary artery stent placement (Chronic 07/01/15) RUDDY to Prox-Mid LAD w/ 3.5 x 20 Promus Stent done 07/01/15 Essential (primary) hypertension (Chronic) HLD (hyperlipidemia) (Chronic) DANYELL (obstructive sleep apnea) (Chronic) Hospital Course and Treatment Consults: [facility] - [facility]aur Operations: appendectomy Procedures: Blood transfusion, - - left hip steroid injection Summary of Care Provided: Hospital course: The patient is a 84 year old M with pmhx as above who was readmitted to the hospital the same day after discharge with worsening debility. The patient was admitted with falls and syncope on 02/06. He was discharged on 02/09. On 02/09, prior to discharge, he was walking without assistance. After the ride home he had great difficulty getting out of the car and had to have assistance to get into the house. The patient then fell repeatedly at home notably as he attempted to get into bed he fell into a sitting position. The patient attributed this to his chronic left hip pain 2/2 osteoarthritis. He had planned for an outpatient steroid injection with Dr. Gayle as this helped him in the past. He was unable to get up on his own and unable to walk. He was brought back to the ER, unable to walk, and with significant pain. He was readmitted. He had the left hip injected with steroids with Dr. Gayle 02/11. He continued to have significant debility and he and his were agreeable to SNF placement. He has chronic iron deficiency anemia (recent negative occult blood and plan for outpatient gen surgery eval), with a Hgb of 7.4. He was transfused with 1 unit of PRBC with some improvement in his generalized weakness and increase in Hgb to 8.2. He was discharged to SNF in stable condition. He will need follow up with his PCP in 2 weeks and with ortho as needed. This patient was seen by Naresh Kenyon PA-C under the supervision of Doctor Yamile. [] Patient Problems: Active and Suspected Problems (Last Reviewed 02/08/20 @ 00:[address] Arsenio Castro MD) Debility (Acute) - Physical Exam Vitals/I&O's: Vital Signs Temp Pulse Resp BP Pulse Ox 97.7 F L 74 18 114/69 94 02/12/20 14:40 02/12/20 14:40 02/12/20 14:40 02/12/20 14:40 02/12/20 14:40 Oxygen Delivery Method Room Air Weight: 239 lb 3.225 oz Body Mass Index (BMI) 41.0 Finger Stick Blood Glucose 67 Intake and Output for Last 24 Hours 02/10/20 02/11/20 02/12/20 23:59 23:59 23:59 Intake Total 110 / 350 1400 / 1400 600 / 600 Output Total 1350 / 1350 550 / 550 Balance 110 / 350 50 / 50 50 / 50 General: Alert, Oriented x3, Cooperative HEENT: Atraumatic, PERRLA, EOMI, Normocephalic Neck: Supple, No JVD, Negative Carotid Bruits Lungs: Clear to auscultation, Normal air movement Cardiovascular: Regular rate, No murmurs Abdomen: Bowel Sounds Present, Soft, Non Tender Extremities: No edema, Capillary Refill Less than 3 Seconds Skin: No rashes, No breakdown Musculoskeletal: No Tenderness to Palpation of Joints or Extremities Neurological: Cranial nerves II-XII grossly intact Psych/Mental Status: Normal Affect, Appropriate Laboratory Results 02/11/20 16:37: POC Glucose 156 H 02/11/20 18:02: Blood Type A POSITIVE, Antibody Screen NEGATIVE, Crossmatch See Detail 02/11/20 21:11: POC Glucose 66 L 02/12/20 05:24: Hgb 8.2 L, Hct 27.0 L 02/12/20 05:24: Hemoglobin A1c 7.0 H 02/12/20 07:47: POC Glucose 106 02/12/20 10:12: PT 13.6, INR 1.1, APTT 24.2 02/12/20 12:57: POC Glucose 153 H Current Medications Acetaminophen (Tylenol) 650 mg PO Q6H PRN PRN PRN Reason: Pain Score 1-10/Temp > 100.7 F Last Admin: 02/11/20 16:16 Dose: 650 mg Documented by: Al Hydroxide/Mg Hydroxide (Mylanta Ii) 30 ml PO Q6H PRN PRN PRN Reason: Gastric Burning Albuterol Sulfate (Ventolin Aerosols) 2.5 mg INHALATION Q2H PRN PRN PRN Reason: Dyspnea, wheezing Amlodipine Besylate (Norvasc) 5 mg PO DAILY [facility] Last Admin: 02/12/20 09:01 Dose: 5 mg Documented by: [facility]) [facility] Last Admin: 02/12/20 08:22 Dose: Not Given Documented by: Citalopram Hydrobromide (Celexa) 10 mg PO DAILY [facility] Last Admin: 02/12/20 15:45 Dose: 10 mg Documented by: Ferrous Sulfate (Ferrous Sulfate) 325 mg PO BID@1200,1700 [facility] Last Admin: 02/12/20 14:41 Dose: Not Given Documented by: Finasteride (Proscar) 5 mg PO DAILY [facility] Last Admin: 02/12/20 15:45 Dose: 5 mg Documented by: Furosemide (Lasix) 40 mg PO DAILY [facility] Last Admin: 02/12/20 15:45 Dose: 40 mg Documented by: Guaifenesin (Robitussin) 20 ml PO Q4H PRN PRN PRN Reason: COUGH Hydralazine HCl (Apresoline Iv) 10 mg IV Q4H PRN PRN PRN Reason: SBP > 160 Insulin Human Lispro (Humalog Kwikpen (Bkc)) [facility]; Protocol Last Admin: 02/12/20 13:56 Dose: Not Given Documented by: Insulin Lispro Protam/Lispro Human (Humalog Mix 75-25 Kwikpen ([facility])) 40 unit SC DINNER [facility] Last Admin: 02/11/20 16:40 Dose: 40 units Documented by: Insulin Lispro Protam/Lispro Human (Humalog Mix 75-25 Kwikpen ([facility])) 50 unit SC BREAKFAST [facility] Last Admin: 02/12/20 08:58 Dose: Not Given Documented by: Isosorbide Mononitrate (Imdur) 30 mg PO DAILY [facility] Last Admin: 02/12/20 15:45 Dose: 30 mg Documented by: Levothyroxine Sodium (Synthroid) 50 mcg PO DAILY@0600 [facility] Last Admin: 02/12/20 06:14 Dose: 50 mcg Documented by: Magnesium Hydroxide (Milk Of Magnesia) 30 ml PO DAILY PRN PRN PRN Reason: Constipation Melatonin (Melatonin) 3 mg PO QHS PRN PRN PRN Reason: INSOMNIA Morphine Sulfate () 4 mg IV Q3H PRN PRN PRN Reason: Pain Score 6-10/10 Last Admin: 02/11/20 21:08 Dose: 4 mg Documented by: Ondansetron HCl (Zofran) 4 mg IV Q8H PRN PRN PRN Reason: NAUSEA/VOMITING Oxycodone HCl (Oxyir) 5 mg PO Q4H PRN PRN PRN Reason: Pain Score 4-5/10 Last Admin: 02/12/20 09:02 Dose: 5 mg Documented by: Pantoprazole Sodium (Protonix) 40 mg PO DAILY [facility] Last Admin: 02/12/20 09:01 Dose: 40 mg Documented by: Pravastatin Sodium (Pravachol) 20 mg PO DAILY@2200 [facility] Last Admin: 02/11/20 21:12 Dose: 20 mg Documented by: Prochlorperazine Edisylate (Compazine Iv) 5 mg IV Q4H PRN PRN PRN Reason: Breakthrough nausea/vomiting Psyllium Hydrophilic Mucilloid (Metamucil) 1 packet PO DAILY PRN PRN PRN Reason: Constipation Senna/Docusate Sodium (Senokot-S, [place]-Colace) 2 tablet PO BID PRN PRN PRN Reason: Constipation Sodium Chloride () 10 - 40 ml IV UD PRN PRN Reason: SALINE FLUSH Last Admin: 02/11/20 09:04 Dose: 10 ml Documented by: Throat Lozenges (Cepacol Sore Throat Lozenge) 1 lozenge MUCOUS MEM Q2H PRN PRN PRN Reason: SORE THROAT Discharge Diet: Low fat/ Low Cholesterol, 2000 mg Sodium Diet Discharge Activity: Return to Normal Activity Home Medications: Medications to take at Discharge Levothyroxine [Synthroid] 50 mcg PO DAILY 01/05/14 Pravastatin [Pravachol] 20 mg PO DAILY 01/05/14 metFORMIN HCl [Glucophage] 1,000 mg PO BIDCM 01/05/14 Cholecalciferol (Vitamin D3) [Vitamin D3] 5,000 unit PO DAILY 06/29/15 Finasteride [Proscar] 5 mg PO DAILY 06/29/15 Insulin NPH/Reg 70/30 [Novolin 70/30] 50 units SC BREAKFAST 06/29/15 Pantoprazole Sodium [Protonix] 40 mg PO DAILY 06/29/15 Aspirin [Adult Low Dose Aspirin EC] 81 mg PO DAILY 07/24/15 insulin human U-100 NPH-regulr 70-30 mix 100 unit/mL subcutaneous susp 40 unit SC DINNER ml 10/17/18 furosemide 40 mg tablet 40 mg PO DAILY #90 tab 02/20/19 isosorbide mononitrate 30 mg tablet,extended release 24 hr 30 mg PO DAILY #90 tab 04/15/19 clopidogrel 75 mg tablet 75 mg PO DAILY #90 tab 06/24/19 citalopram 10 mg tablet 10 mg PO DAILY tab 07/23/19 Amlodipine Besylate [Norvasc] 5 mg PO DAILY 02/10/20 Insulin Lispro [Humalog Kwikpen] See Protocol SQ TIDCM 02/10/20 Acetaminophen [Tylenol Tablet] 650 mg PO Q6H PRN PRN tab 02/12/20 Ferrous Sulfate 325 mg PO BID@1200,1700 tab 02/12/20 Magnesium Hydroxide [Milk Of Magnesia] 30 ml PO DAILY PRN PRN udc 02/12/20 Oxycodone [Oxyir] 5 mg PO Q4H PRN PRN 3 Days #18 tab 02/12/20 Psyllium [Metamucil] 1 packet PO DAILY PRN PRN packet 02/12/20 Senna/Docusate Sodium [Senokot-S] 2 tab PO BID PRN PRN tab 02/12/20 Following Prescriptions Were Given to Patient: Oxycodone [Oxyir] 5 mg PO Q4H PRN PRN 3 Days #18 tab PRN Reason: Pain Score 4-5/10 Prescription Printed Primary Care Physician: Soham Jones III, MD [Primary Care Provider] - Please follow up with your Primary Care Physician in: 2 weeks Please Follow Up With: Capo Gayle MD When: as needed Disposition: Care Home facility Minutes spent on discharge:: 35 Patient Condition:: Stable Medical Necessity - Tobacco Use Smoking Status: Former smoker Tobacco Use: Non-smoker Meaningful Use Info Meaningful Use Diagnoses (Choose all that apply): None applicable <Dia Ovalle - Last Filed: 02/12/20 16:26> Discharge Date and Diagnosis - Primary Discharge Diagnosis Acute Problems: Active Problems (Last Reviewed 02/08/20 @ 00:[address] Arsenio Castro MD) Debility (Acute) - Secondary Discharge Diagnosis Chronic Problems: Chronic Problems (Last Reviewed 02/08/20 @ 00:[address] 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) Premature ventricular contractions (Chronic) Atherosclerotic heart disease of [place] coronary artery without angina pectoris (Chronic) History of coronary artery stent placement (Chronic 07/01/15) RUDDY to Prox-Mid LAD w/ 3.5 x 20 Promus Stent done 07/01/15 Essential (primary) hypertension (Chronic) HLD (hyperlipidemia) (Chronic) DANYELL (obstructive sleep apnea) (Chronic) Hospital Course and Treatment Summary of Care Provided: Patient seen by Naresh Kenyon PA-C under my supervision The patient is a 84 year old M with a past medical history as outlined who was admitted with a complaint of debility. Patient had been admitted from syncope and mechanical fall on 821 and was subsequently discharged on 82. He stayed and was complicated by anemia due to acute blood loss from the scalp laceration he sustained from fall. During the prior admission, patient had refused considering long term facility or even home physical therapy and he ambulated about 100 m without assistance on the day of discharge. After he arrived home, he had great difficulty getting out of the car and also fell so he was brought back to the hospital. He was therefore readmitted on 02/10/2020 for worsening debility. He also complained of left hip pain she was due to osteoarthritis. He was admitted and managed for the bleeding due to left hip pain. He had a steroid shot in the left hip on 02/12/2020. Physical therapy was also consulted and work with patient. Of note, patient had his hemoglobin dropping to 7.4 during this admission. During the prior admission, he had been started on oral iron supplementation and had a negative stool for occult blood. He had been referred to follow-up with general surgery on outpatient basis. He was transfused 1 unit of packed red blood cells. Hemoglobin was 8.2 on day of discharge. Patient was accepted at the long term facility and was discharged to the long term facility on 02/12/2020. He is to follow-up with his primary care doctor and orthopedic surgery as needed. Patient seen and examined prior to discharge. He had no complaints. Review of symptoms otherwise negative. Labs and vitals reviewed. Home medication reviewed and reconciled. [] o/e: Vital Signs Temp Pulse Resp BP Pulse Ox 97.7 F L 74 18 162/72 H 94 02/12/20 16:17 02/12/20 16:17 02/12/20 16:17 02/12/20 16:17 02/12/20 16:17 General: Alert, Oriented x3, Cooperative HEENT: Atraumatic, PERRLA, EOMI, Normocephalic Neck: Supple, No JVD, Negative Carotid Bruits Lungs: Clear to auscultation, Normal air movement Cardiovascular: Regular rate, No murmurs Abdomen: Bowel Sounds Present, Soft, Non Tender, Obese Extremities: Capillary Refill Less than 3 Seconds, Edema - 1+ pitting edema BLE Skin: No rashes, No breakdown Musculoskeletal: No Tenderness to Palpation of Joints or Extremities Neurological: Cranial nerves II-XII grossly intact Psych/Mental Status: Normal Affect, Appropriate, Alert and oriented to time, place, person, mood and affect Plan is for discharge to long term facility today. Rest as per Naresh Kenyon PA-C's notes which I have reviewed and endorsed. - Physical Exam Vitals/I&O's: Vital Signs Temp Pulse Resp BP Pulse Ox 97.7 F L 74 18 162/72 H 94 02/12/20 16:17 02/12/20 16:17 02/12/20 16:17 02/12/20 16:17 02/12/20 16:17 Oxygen Delivery Method Room Air Weight: 239 lb 3.225 oz Body Mass Index (BMI) 41.0 Finger Stick Blood Glucose 67 Intake and Output for Last 24 Hours 02/10/20 02/11/20 02/12/20 23:59 23:59 23:59 Intake Total 110 / 350 1400 / 1400 600 / 600 Output Total 1350 / 1350 550 / 550 Balance 110 / 350 50 / 50 50 / 50 Laboratory Results 02/11/20 16:37: POC Glucose 156 H 02/11/20 18:02: Blood Type A POSITIVE, Antibody Screen NEGATIVE, Crossmatch See Detail 02/11/20 21:11: POC Glucose 66 L 02/12/20 05:24: Hgb 8.2 L, Hct 27.0 L 02/12/20 05:24: Hemoglobin A1c 7.0 H 02/12/20 07:47: POC Glucose 106 02/12/20 10:12: PT 13.6, INR 1.1, APTT 24.2 02/12/20 12:57: POC Glucose 153 H Current Medications Acetaminophen (Tylenol) 650 mg PO Q6H PRN PRN PRN Reason: Pain Score 1-10/Temp > 100.7 F Last Admin: 02/11/20 16:16 Dose: 650 mg Documented by: Al Hydroxide/Mg Hydroxide (Mylanta Ii) 30 ml PO Q6H PRN PRN PRN Reason: Gastric Burning Albuterol Sulfate (Ventolin Aerosols) 2.5 mg INHALATION Q2H PRN PRN PRN Reason: Dyspnea, wheezing Amlodipine Besylate (Norvasc) 5 mg PO DAILY [facility] Last Admin: 02/12/20 09:01 Dose: 5 mg Documented by: [facility]in (Ecotrin) [facility] Last Admin: 02/12/20 08:22 Dose: Not Given Documented by: Citalopram Hydrobromide (Celexa) 10 mg PO DAILY [facility] Last Admin: 02/12/20 15:45 Dose: 10 mg Documented by: Ferrous Sulfate (Ferrous Sulfate) 325 mg PO BID@1200,1700 [facility] Last Admin: 02/12/20 15:53 Dose: 325 mg Documented by: Finasteride (Proscar) 5 mg PO DAILY [facility] Last Admin: 02/12/20 15:45 Dose: 5 mg Documented by: Furosemide (Lasix) 40 mg PO DAILY [facility] Last Admin: 02/12/20 15:45 Dose: 40 mg Documented by: Guaifenesin (Robitussin) 20 ml PO Q4H PRN PRN PRN Reason: COUGH Hydralazine HCl (Apresoline Iv) 10 mg IV Q4H PRN PRN PRN Reason: SBP > 160 Insulin Human Lispro (Humalog Kwikpen (Bkc)) 0 unit SC 4X/DAYCM [facility]; Protocol Last Admin: 02/12/20 13:56 Dose: Not Given Documented by: Insulin Lispro Protam/Lispro Human (Humalog Mix 75-25 Kwikpen (Bkc)) 40 unit SC DINNER [facility] Last Admin: 02/11/20 16:40 Dose: 40 units Documented by: Insulin Lispro Protam/Lispro Human (Humalog Mix 75-25 Kwikpen (Bkc)) 50 unit SC BREAKFAST [facility] Last Admin: 02/12/20 08:58 Dose: Not Given Documented by: Isosorbide Mononitrate (Imdur) 30 mg PO DAILY [facility] Last Admin: 02/12/20 15:45 Dose: 30 mg Documented by: Levothyroxine Sodium (Synthroid) 50 mcg PO DAILY@0600 [facility] Last Admin: 02/12/20 06:14 Dose: 50 mcg Documented by: Magnesium Hydroxide (Milk Of Magnesia) 30 ml PO DAILY PRN PRN PRN Reason: Constipation Melatonin (Melatonin) 3 mg PO QHS PRN PRN PRN Reason: INSOMNIA Morphine Sulfate () 4 mg IV Q3H PRN PRN PRN Reason: Pain Score 6-10/10 Last Admin: 02/11/20 21:08 Dose: 4 mg Documented by: Ondansetron HCl (Zofran) 4 mg IV Q8H PRN PRN PRN Reason: NAUSEA/VOMITING Oxycodone HCl (Oxyir) 5 mg PO Q4H PRN PRN PRN Reason: Pain Score 4-5/10 Last Admin: 02/12/20 09:02 Dose: 5 mg Documented by: Pantoprazole Sodium (Protonix) 40 mg PO DAILY [facility] Last Admin: 02/12/20 09:01 Dose: 40 mg Documented by: Pravastatin Sodium (Pravachol) 20 mg PO DAILY@2200 [facility] Last Admin: 02/11/20 21:12 Dose: 20 mg Documented by: Prochlorperazine Edisylate (Compazine Iv) 5 mg IV Q4H PRN PRN PRN Reason: Breakthrough nausea/vomiting Psyllium Hydrophilic Mucilloid (Metamucil) 1 packet PO DAILY PRN PRN PRN Reason: Constipation Last Admin: 02/12/20 15:53 Dose: 1 packet Documented by: Senna/Docusate Sodium (Senokot-S, [place]-Colace) 2 tablet PO BID PRN PRN PRN Reason: Constipation Sodium Chloride () 10 - 40 ml IV UD PRN PRN Reason: SALINE FLUSH Last Admin: 02/11/20 09:04 Dose: 10 ml Documented by: Throat Lozenges (Cepacol Sore Throat Lozenge) 1 lozenge MUCOUS MEM Q2H PRN PRN PRN Reason: SORE THROAT OBSV E&M: 84024 Observation care discharge
--- NOTE | 2020-02-12 15:52 | CASEMGMT ---
NEERAJ Infante did peer to peer and patient was approved to go to TCU. SW notified patient and he asked that SW notify his . SW called patient's and left a voice mail letting her know that patient was approved to go to TCU and he will go today. SW also let her know that he will be in quarantine for 14 days and then if he is still there after that they are scheduling outside visits. Patient's then arrived and RN told her about approval. Plan: d/c to TCU under skilled level of care Abby GRIFFIN MSW
[2020-02-12] MEDS: Psyllium 1 PACKET PO (15:53)
[2020-02-12] MEDS: Ferrous Sulfate 325 MG Tablet PO (15:53)
--- NOTE | 2020-02-12 16:08 | NURSING ---
This RN called and gave report to NANCI Zamarripa on TCU.
[2020-02-12 16:40] LABS: Bedside Glucose 226 mg/dL (70-110)
== END 2020-02-12 15:47 | disposition skilled nursing facility (03) ==
LOC: ED 18:13 → PCU 18:49
PROVIDERS: Physician Assistant; Specialist; Admitting Provider Family Medicine; Emergency Provider Emergency Medicine; PCP Family Medicine; Visit Provider Student in an Organized Health Care Education/Training Program
PROC: (CPT 27570; principal; 2020-02-12 11:55)
DX: M16.12 Unilateral primary osteoarthritis, left hip (principal); R53.1 Weakness; R29.6 Repeated falls; D50.9 Iron deficiency anemia, unspecified; R55 Syncope and collapse; S01.01XA Laceration without foreign body of scalp, initial encounter; Z23 Encounter for immunization; I45.2 Bifascicular block; E11.22 Type 2 diabetes mellitus with diabetic chronic kidney disease; I12.9 Hypertensive chronic kidney disease with stage 1 through stage 4 chronic kidney disease, or unspecified chronic kidney disease; N18.3 Chronic kidney disease, stage 3 (moderate); I08.1 Rheumatic disorders of both mitral and tricuspid valves; D62 Acute posthemorrhagic anemia; M25.551 Pain in right hip; I25.10 Atherosclerotic heart disease of native coronary artery without angina pectoris; E78.5 Hyperlipidemia, unspecified; G47.33 Obstructive sleep apnea (adult) (pediatric); K21.9 Gastro-esophageal reflux disease without esophagitis; N40.0 Benign prostatic hyperplasia without lower urinary tract symptoms; E03.9 Hypothyroidism, unspecified; W19.XXXA Unspecified fall, initial encounter; G89.29 Other chronic pain; E66.01 Morbid (severe) obesity due to excess calories; Y93.89 Activity, other specified; Y92.59 Other trade areas as the place of occurrence of the external cause; Z79.899 Other long term (current) drug therapy; Z95.5 Presence of coronary angioplasty implant and graft; Z79.82 Long term (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 of aspirin; Z79.02 Long term (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 of antithrombotics/antiplatelets; Z79.4 Long term (current) use of insulin; Z87.891 Personal history of nicotine dependence; Z68.41 Body mass index [BMI] 40.0-44.9, adult
CPT/HCPCS: 12001; 20610; 36415; 36430; 70450; 72192; 73502; 80048; 80053; 82274; 82607; 82728; 82746; 82962; 83036; 83540; 83550; 83735; 84439; 84443; 84484; 85014; 85018; 85025; 85610; 85730; 86850; 86900; 86901; 86920; 86922; 87635; 90471; 90715; 93005; 93306; 96361; 96365; 96374; 96375; 96376; 97110; 97116; 97162; 97165; 97166; 97530; 97535; 99218; 99251; 99284; 99285; J1756; J7030; J7040; P9016; A4216; G0378; G0463; J2405; U0003

== ENCOUNTER 2020-02-12 16:44 | Inpatient (IN) | payer MEDICARE, SELFPAY ==
[2020-02-12 09:33] VITALS: BMI 41.0
[2020-02-12 16:49] VITALS: BP 124/81; PULSE 82; RESP 20; TEMP 36.1; O2SAT 95; BMI 40.2
--- NOTE | 2020-02-12 18:25 | RAD_ITS ---
STUDY: X-RAY - LUMBAR SPINE REASON FOR EXAM: Male, 84 years old. Fall. Pain. TECHNIQUE: 3 view(s) of the lumbar spine were obtained. COMPARISON: MRI dated 12/27/18 FINDINGS: There is no evidence of fracture or dislocation in the lumbar spine. There are stable postsurgical changes from posterior fusion of L2-L5. The hardware is intact and alignment is satisfactory. There are stable degenerative changes. There are stable atherosclerotic calcifications noted in the aorta. RAD/Lumbar Spine 2 or 3 Views IMPRESSION: No fracture or dislocation in the lumbar spine. Stable postsurgical and degenerative change. Electronically Signed: Capo Chase, at 18:40 EDT Tel , Service support ,
[2020-02-12] MEDS: Magnesium Citrate 300 ML PO (18:55)
--- NOTE | 2020-02-12 20:02 | PCM.HP.STD ---
Problem List (1) Fall Status: Acute (2) Weakness Status: Acute (3) Left hip pain Status: Acute (4) Syncope Status: Chronic (5) Chronic kidney disease Status: Chronic (6) Hypertension Status: Chronic (7) Hypothyroidism Status: Chronic (8) BPH (benign prostatic hyperplasia) Status: Chronic (9) GERD (gastroesophageal reflux disease) Status: Chronic (10) Chronic systolic heart failure Status: Chronic (11) Body mass index (BMI) 40.0-44.9, adult Status: Chronic (12) Iron deficiency anemia Status: Chronic Qualifiers: (13) Debility Status: Acute (14) Diabetes Status: Chronic (15) HLD (hyperlipidemia) Status: Chronic Qualifiers: (16) DANYELL (obstructive sleep apnea) Status: Chronic History of Present Illness Date of Admission: 02/12/20 Chief Complaint: Here for rehabilitation, strengthening, prior to discharge home with . 02/10/2020 The patient is a 84 year old Male with below past medical history presented to [facility] with fall, generalized weakness. 02/08/2020 Echo EF 40 to 45%. Mildly dilated left ventricle. 02/09/2020 CT brain chronic involutional changes of brain. Recent admission for syncope, iron deficiency anemia. Legs gave out, collapsed at home. Morphine, Zofran given for left hip pain. Hemoglobin 7.7, Glucose 235, Cr 1.42. 02/10/2020 Admit to Hospital. X-ray left hip negative, CT left hip negative. PT/OT. Venofer IV for iron deficiency anemia. 02/11/2020 Orthostatics negative. 02/12/2020 Dr. Gayle performed left hip fluoroscopic guided steroid injection. 02/12/2020 Transfuse 1 unit PRBC, oral iron for iron deficiency anemia. Hemoccult negative for blood. 02/12/2020 Admit to TCU with debility, here for rehabilitation, strengthening, prior to discharge home with . Past Medical History Past Medical History (Chronic Problems): Chronic Problems (Last Reviewed 02/08/20 @ 00:[address] 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) I45.2 Premature ventricular contractions (Chronic) I49.3 Atherosclerotic heart disease of [place] coronary artery without angina pectoris (Chronic) I25.10 Essential (primary) hypertension (Chronic) I10 HLD (hyperlipidemia) (Chronic) E78.5 Vocal cord dysfunction (Inactive) J38.3 DANYELL (obstructive sleep apnea) (Chronic) G47.33 BMI 40.0-44.9, adult Z68.41 Benign prostatic hypertrophy N40.0 Diabetes mellitus type 2 in obese E11.9, E66.9 GERD (gastroesophageal reflux disease) K21.9 Hiatal hernia K44.9 Hypothyroid E03.9 Nephrolithiasis Obesity E66.9 Anemia D64.9 Appendicitis (Resolved) K37 Chest pain (Resolved) R07.9 Cough (Resolved) R05 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 I42.0 Dyspnea (Resolved) R06.00 Right flank pain (Resolved) R10.9 Shortness of breath (Resolved) R06.02 Upper respiratory infection (Resolved) J06.9 Nonrheumatic tricuspid (valve) insufficiency (Ruled-out) I36.1 Allergies losartan Adverse Reaction (Intermediate, Verified 02/10/20 16:43) Jitters metoprolol Adverse Reaction (Intermediate, Verified 02/10/20 16:43) Jitters pioglitazone HCl [From Actos] Adverse Reaction (Verified 02/10/20 16:43) Upset Stomach Home Medications: Ambulatory Orders Medication Instructions Recorded Levothyroxine [Synthroid] 50 mcg PO DAILY 01/05/14 Pravastatin [Pravachol] 20 mg PO DAILY 01/05/14 metFORMIN HCl [Glucophage] 1,000 mg PO BIDCM 01/05/14 Cholecalciferol (Vitamin D3) 5,000 unit PO DAILY 06/29/15 [Vitamin D3] Finasteride [Proscar] 5 mg PO DAILY 06/29/15 Insulin NPH/Reg 70/30 [Novolin 50 units SC BREAKFAST 06/29/15 70/30] Pantoprazole Sodium [Protonix] 40 mg PO DAILY 06/29/15 Aspirin [Adult Low Dose Aspirin EC] 81 mg PO DAILY 07/24/15 insulin human U-100 NPH-regulr 40 unit SC DINNER ml 10/17/18 70-30 mix 100 unit/mL subcutaneous susp citalopram 10 mg tablet 10 mg PO DAILY tab 07/23/19 Amlodipine Besylate [Norvasc] 5 mg PO DAILY 02/10/20 Insulin Lispro [Humalog Kwikpen] See Protocol SQ TIDCM 02/10/20 Acetaminophen [Tylenol Tablet] 650 mg PO Q6H PRN PRN tab 02/12/20 Clopidogrel Bisulfate [Clopidogrel] 75 mg PO DAILY 02/12/20 Ferrous Sulfate 325 mg PO BID@1200,1700 02/12/20 Furosemide 40 mg PO DAILY 02/12/20 Isosorbide Mononitrate [Isosorbide 30 mg PO DAILY 02/12/20 Mononitrate ER] Magnesium Hydroxide [Milk Of 30 ml PO DAILY PRN PRN udc 02/12/20 Magnesia] Oxycodone [Oxyir] 5 mg PO Q4H PRN PRN 3 Days #18 tab 02/12/20 Psyllium [Metamucil] 1 packet PO DAILY PRN PRN packet 02/12/20 Senna/Docusate Sodium [Senokot-S] 2 tab PO BID PRN PRN tab 02/12/20 Surgical History: Surgical History (Last Reviewed 02/08/20 @ 00:[address] Arsenio Castro MD) History of coronary artery stent placement (Chronic) Onset Date: 07/01/15 Z95.5 RUDDY to Prox-Mid LAD w/ 3.5 x 20 Promus Stent done 07/01/15 History of appendectomy Z90.49 History of back surgery Z98.890 History of left heart catheterization Z98.890 History of lymph node biopsy Z98.890 History of right and left heart catheterization Onset Date: 07/02/18 Z98.890 Surgical History: angioplasty, appendectomy, - - Back surgery, lymph nodes in chest and aorta accidentally nicked and had to have chest opened to repair it. Psychiatric History: Depression Lives: Spouse/ Significant Other Smoking Status: Former smoker Tobacco Use: Non-smoker Alcohol: None Drugs: None - *Family History Maternal Family History: Family History (Last Reviewed 02/10/20 @ 18:38 by NEERAJ Galvan) Mother CAD (coronary artery disease) Brother CAD (coronary artery disease) Myocardial infarction Daughter Asthma Father Cancer Sister Breast cancer Sister Cardiomyopathy History Items: Heart Disease, Unknown, - Review of Systems Constitutional: Denies: Chills, Fever, Weight Change HEENT: Denies: Head Aches, Sinus Congestion, Sinus Drainage Cardiovascular: Denies: Chest Pain, Palpitations Respiratory: Denies: Cough, Shortness of breath at rest, Sputum production Gastrointestinal: Denies: Abdominal Pain, Nausea, Vomiting Genitourinary: Denies: Dysuria Musculoskeletal: Reports: Joint Pain - Left hip pain.. Denies: Joint Tenderness Skin: Denies: Rash, Wounds Neurological: Denies: Numbness, Tingling, Focal weakness Psychiatric: Denies: Anxiety, Depression, Homicidal Ideations, Suicidal Ideations Hematologic/ Lymphatic: Denies: Easy Bruising, Easy Bleeding VTE Information - Inpt Only VTE Present on Admission: No VTE Mechan Device Prophylaxis: Knee High EV Hose VTE Pharm Prophylaxis ordered?: No Reason prophylaxis not ordered:: Medical Contraindication Patient Problems: Active and Suspected Problems (Last Reviewed 02/08/20 @ 00:[address] Arsenio Castro MD) Fall (Acute) Weakness (Acute) Left hip pain (Acute) - Physical Exam Vitals/I&O's: Vital Signs Temp Pulse Resp BP Pulse Ox 97.0 F L 82 20 H 124/81 H 95 02/12/20 16:49 02/12/20 16:49 02/12/20 16:49 02/12/20 16:49 02/12/20 16:49 Oxygen Delivery Method Room Air Weight: 106.311 kg Body Mass Index (BMI) 40.2 Finger Stick Blood Glucose 67 General: Alert, Oriented x3, Cooperative HEENT: Atraumatic, PERRLA, EOMI, Normocephalic Neck: Supple, No JVD, Negative Carotid Bruits Lungs: Clear to auscultation, Normal air movement Cardiovascular: Regular rate, No murmurs Abdomen: Bowel Sounds Present, Soft, Non Tender Extremities: No edema, Capillary Refill Less than 3 Seconds Skin: No rashes, No breakdown Musculoskeletal: No Tenderness to Palpation of Joints or Extremities Neurological: Cranial nerves II-XII grossly intact Psych/Mental Status: Normal Affect, Appropriate Current Medications Acetaminophen (Tylenol) 650 mg PO Q6H PRN PRN PRN Reason: Pain Score 1-10/Temp > 100.7 F Amlodipine Besylate (Norvasc) 5 mg PO DAILY [facility] Aspirin (Ecotrin) 81 mg PO DAILYCM [facility] Bisacodyl (Dulcolax) 10 mg RECTAL DAILY PRN PRN Reason: Constipation Cholecalciferol (Vitamin D (25mcg)) 5,000 unit PO DAILY [facility] Citalopram Hydrobromide (Celexa) 10 mg PO DAILY [facility] Clopidogrel Bisulfate (Plavix) 75 mg PO DAILY [facility] Last Admin: 02/12/20 18:52 Dose: Not Given Documented by: Ferrous Sulfate (Ferrous Sulfate) 325 mg PO BID@1200,1700 SHARON Finasteride (Proscar) 5 mg PO DAILY [facility] Furosemide (Lasix) 40 mg PO DAILY [facility] Insulin Lispro Protam/Lispro Human (Humalog Mix 75-25 Kwikpen (Bkc)) 50 unit SC BREAKFAST SHARON Insulin Lispro Protam/Lispro Human (Humalog Mix 75-25 Kwikpen (Bkc)) 40 unit SC DINNER [facility] Isosorbide Mononitrate (Imdur) 30 mg PO DAILY [facility] Levothyroxine Sodium (Synthroid) 50 mcg PO DAILY [facility] Magnesium Hydroxide (Milk Of Magnesia) 30 ml PO DAILY PRN PRN PRN Reason: Constipation Metformin HCl (Glucophage) 1,000 mg PO BIDCM [facility] Oxycodone HCl (Oxyir) 5 mg PO Q4H PRN PRN PRN Reason: Pain Score 4-10/10 Pantoprazole Sodium (Protonix) 40 mg PO DAILY [facility] Pravastatin Sodium (Pravachol) 20 mg PO QHS [facility]ARON Psyllium Hydrophilic Mucilloid (Metamucil) 1 packet PO DAILY PRN PRN PRN Reason: Constipation Senna/Docusate Sodium (Senokot-S, [place]-Colace) 2 tablet PO BID PRN PRN PRN Reason: Constipation Tuberculin PPD (Tubersol, Aplisol, Ppd) 5 tu ID X1 ONE Stop: 02/13/20 10:01 Tuberculin PPD (Tubersol, Aplisol, Ppd) 5 tu ID X1 ONE Stop: 02/20/20 10:01 Assessment/Plan All Active Problems (Last Reviewed 02/08/20 @ 00:[address] Arsenio Castro MD) Syncope and collapse (Acute) Debility (Acute) Fall (Acute) Weakness (Acute) Left hip pain (Acute) Appendicitis (Resolved) Chest pain (Resolved) Cough (Resolved) Dyspnea (Resolved) Right flank pain (Resolved) Shortness of breath (Resolved) Upper respiratory infection (Resolved) Nonrheumatic tricuspid (valve) insufficiency (Ruled-out) 84 year old male with below past medical history hospitalized for fall, weakness secondary to left hip pain, complicated by iron deficiency anemia, admitted to TCU with debility, here for rehabilitation, strengthening, prior to discharge home with . Debility - PT/OT. Pain - Tylenol 1000MG Q6H PRN pain (1-3), Tramadol 50MG Q6H PRN pain (4-5), Oxycodone 5MG Q4H PRN pain (6-10). Bowel - Miralax 17GM BID, Senna/colace 2 tablets BID, Dulcolax 10MG DC daily PRN, Magnesium citrate 300ML PO x 1 bottle. Adult immunization - Administer Prevnar 13, Pneumovax 23, Fluzone as appropriate. DVT prophylaxis - Hold, recent anemia. Hypertension - Amlodipine 5MG daily. Coronary Artery Disease - Imdur 30MG daily, Plavix 75MG daily, Aspirin 81MG daily. Vitamin D deficiency - Vitamin D3 5000IU daily. Depression - Citalopram 10MG daily. Iron deficiency anemia - Ferrex 150MG BID. BPH - Finasteride 5MG daily. Chronic systolic congestive heart failure - Imdur 30MG daily, Lasix 40MG daily. Diabetes Mellitus II - Metformin 1000MG BID, Humalog 75/25 50 units AM, 40 units dinner. Hypothyroidism - Levothyroxine 50MCG daily. Left hip pain - ? lumbar radicular pain, X-ray LS spine, consult Dr. Carmona.
[2020-02-12] MEDS: Pravastatin 20 MG Tablet PO (21:55)
[2020-02-13 01:46] LABS: Bedside Glucose 290 mg/dL (70-110)
[2020-02-13 05:44] LABS: Absolute Lymphocyte Count 0.71 X10^3/uL (0.83-4.51); Absolute Neutrophil Count 4.9 X10^3/uL (2.0-7.7); Basophil# 0.01 X10^3/uL; Basophil% 0.2 % (0-1); Hematocrit 26.7 % (40-54); Hemoglobin 8.5 g/dL (13.0-16.5); Lymphocyte # 0.71 X10^3/ul (4.0); Lymphocyte % 11.6 % (19-41); Mean Corp Hgb Conc 31.8 g/dL (32-36); Mean Corpuscular Hgb 28.9 pg (27.0-32.0); Mean Corpuscular Volume 90.8 fL (80-94); Mean Platelet Vol. 9.3 fl (6.2-12.0); Monocyte# 0.32 X10^3/uL; Monocyte% 5.2 % (0-10); NRBC Flagged by Analyzer 1.6 % (0-5); Neutrophil # 4.92 X10^3/uL (2.7-7.7); Neutrophil % 80.7 % (47-70); Platelet Count 279 K/mm3 (150-450); RBC Distribution Width CV 16.5 % (11.6-14.6); RBC Distribution Width SD 53.1 fl (35.1-43.9); Red Blood Count 2.94 M/mm3 (4.6-6.2); White Blood Count 6.1 K/mm3 (4.4-11.0)
[2020-02-13 06:04] LABS: Anion Gap 4 (5-15); BUN 17 mg/dL (7-18); Calcium,Total 8.8 mg/dL (8.5-10.1); Chloride 100 mmol/L (98-107); Creatinine, Serum 1.42 mg/dL (0.70-1.30); EST Glomerular Filtration Rate 51 mL/min (>60); Est Glom Filt Rate - Afr Amer 61 mL/min (>60); Estimated Creatinine Clearance 33.58 ml/min; Glucose 272 mg/dL (74-106); Potassium 4.7 mmol/L (3.5-5.1); Sodium Level 136 mmol/L (136-145)
[2020-02-13 06:39] VITALS: BP 128/82; PULSE 60; RESP 18; TEMP 36.7; O2SAT 93
[2020-02-13] MEDS: amLODIPine 5 MG Tablet PO (06:41)
[2020-02-13] MEDS: Senna/Docusate Sodium 1 Tablet 2 TABLET PO ×2 (06:41→17:31)
[2020-02-13] MEDS: Levothyroxine 50 MCG Tablet PO (06:41)
[2020-02-13] MEDS: Isosorbide Mononitrate 30 MG Tablet PO (06:41)
[2020-02-13] MEDS: Pantoprazole Sodium 40 MG Tablet PO (06:41)
[2020-02-13] MEDS: Citalopram 10 MG Tablet PO (06:42)
[2020-02-13] MEDS: Finasteride 5 MG Tablet PO (06:42)
[2020-02-13] MEDS: Furosemide 40 MG Tablet PO (06:42)
[2020-02-13] MEDS: Polyethylene Glycol 3350 17 GM PACKET PO ×2 (06:44→18:21)
[2020-02-13] MEDS: 0.9% Saline Lock 10 ML Syringe IV (06:45)
[2020-02-13 07:01] LABS: Bedside Glucose 261 mg/dL (70-110)
[2020-02-13] MEDS: Insulin Human 75/25 Kwickpen 50 UNIT SC (07:50)
[2020-02-13] MEDS: Glucerna Shake 120 ML LIQUID PO ×3 (07:50→17:31)
[2020-02-13] MEDS: Iron Polysaccharide Complex 150 MG CAPSULE PO ×2 (07:52→17:31)
[2020-02-13] MEDS: metFORMIN HCl 1,000 MG Tablet 1000 MG PO ×2 (07:52→17:31)
[2020-02-13] MEDS: Aspirin E.C. 81 MG Tablet PO (07:53)
--- NOTE | 2020-02-13 09:41 | CASEMGMT ---
Social Work Discussed patient's code status. Pt confirmed full code. MOLST form completed and placed in chart. RITESH DegrootW
--- NOTE | 2020-02-13 09:49 | CASEMGMT ---
Social Work Met patient for initial assessment. Pt expressed being more fidgety than usual, trouble concentrating on things, memory is a little fuzzy, and difficulty with word finding. Pt agreeable to ST consult. BIMS: . Nursing notified for ST consult. RITESH Degroot VICE PRESIDENT [employer]
--- NOTE | 2020-02-13 10:15 | NURSING ---
Dr. Carmona's office called today asking about pt's BS and pain level. BS was 261 before breakfast and morning insulin. Pt also told this nurse that he was not having any pain today, he believes the hip injection he had received prior is working. Dr. Carmona was updated and TFE scheduled for today was canceled and he will f/u on Monday to re-evaluate the need for an injection, pt verbalized understanding and is in agreement with current plan of treatment.
[2020-02-13 10:51] LABS: Bedside Glucose 285 mg/dL (70-110)
[2020-02-13] MEDS: Tuberculin,Purif.prot.deriv. 50 TU/ML Vial 5 ML ID (11:29)
[2020-02-13 15:20] VITALS: BP 107/76; PULSE 82; RESP 20; TEMP 36.8; O2SAT 97
[2020-02-13 16:36] LABS: Bedside Glucose 288 mg/dL (70-110)
[2020-02-13] MEDS: Insulin Lispro 100 UNIT/ML INSULN.PEN 23 UNIT SC (18:18)
[2020-02-13] MEDS: Pravastatin 20 MG Tablet PO (21:14)
[2020-02-13 21:16] LABS: Bedside Glucose 235 mg/dL (70-110)
[2020-02-13 21:17] VITALS: PULSE 70; RESP 18; O2SAT 98
[2020-02-14 04:06] LABS: Bedside Glucose 232 mg/dL (70-110)
[2020-02-14 05:00] VITALS: BP 128/74; PULSE 73; RESP 18; TEMP 37; O2SAT 94
[2020-02-14] MEDS: Levothyroxine 50 MCG Tablet PO (05:32)
[2020-02-14] MEDS: Clopidogrel Bisulfate 75 MG Tablet PO (05:32)
[2020-02-14] MEDS: Pantoprazole Sodium 40 MG Tablet PO (05:32)
[2020-02-14] MEDS: Isosorbide Mononitrate 30 MG Tablet PO (05:32)
[2020-02-14] MEDS: Citalopram 10 MG Tablet PO (05:33)
[2020-02-14] MEDS: Polyethylene Glycol 3350 17 GM PACKET PO (05:33)
[2020-02-14] MEDS: amLODIPine 5 MG Tablet PO (05:33)
[2020-02-14] MEDS: Furosemide 40 MG Tablet PO (05:33)
[2020-02-14] MEDS: Senna/Docusate Sodium 1 Tablet 2 TABLET PO (05:35)
[2020-02-14] MEDS: 0.9% Saline Lock 10 ML Syringe IV (05:35)
[2020-02-14] MEDS: Finasteride 5 MG Tablet PO (05:36)
[2020-02-14 06:21] LABS: Bedside Glucose 200 mg/dL (70-110)
[2020-02-14] MEDS: metFORMIN HCl 1,000 MG Tablet 1000 MG PO ×2 (07:44→17:16)
[2020-02-14] MEDS: Iron Polysaccharide Complex 150 MG CAPSULE PO ×2 (07:44→17:16)
[2020-02-14] MEDS: Aspirin E.C. 81 MG Tablet PO (07:44)
[2020-02-14] MEDS: Insulin Lispro 100 UNIT/ML INSULN.PEN 23 UNIT SC ×3 (07:45→17:16)
[2020-02-14] MEDS: Glucerna Shake 120 ML LIQUID PO ×3 (07:52→17:15)
[2020-02-14 10:00] VITALS: PULSE 56; RESP 18; O2SAT 98
[2020-02-14 11:26] LABS: Bedside Glucose 151 mg/dL (70-110)
[2020-02-14 14:09] VITALS: BP 113/57; PULSE 82; RESP 16; TEMP 36.4; O2SAT 97
[2020-02-14 17:05] LABS: Bedside Glucose 151 mg/dL (70-110)
[2020-02-14 21:46] LABS: Bedside Glucose 147 mg/dL (70-110)
[2020-02-14] MEDS: MELATONIN 10 MG TABLET PO (21:56)
[2020-02-14] MEDS: Pravastatin 20 MG Tablet PO (21:56)
--- NOTE | 2020-02-14 23:54 | NURSING ---
dc'd saline lock in left forearm. tip intact and post site slightly pink. pt tolerated well, laying in bed with cpap on and call light in reach.
[2020-02-15 05:00] VITALS: BP 136/66; PULSE 74; RESP 18; TEMP 36.6; O2SAT 95
[2020-02-15] MEDS: Polyethylene Glycol 3350 17 GM PACKET PO (05:43)
[2020-02-15] MEDS: Pantoprazole Sodium 40 MG Tablet PO (05:45)
[2020-02-15] MEDS: Furosemide 40 MG Tablet PO (05:45)
[2020-02-15] MEDS: Clopidogrel Bisulfate 75 MG Tablet PO (05:45)
[2020-02-15] MEDS: Isosorbide Mononitrate 30 MG Tablet PO (05:45)
[2020-02-15] MEDS: Senna/Docusate Sodium 1 Tablet 2 TABLET PO (05:45)
[2020-02-15] MEDS: Citalopram 10 MG Tablet PO (05:45)
[2020-02-15] MEDS: amLODIPine 5 MG Tablet PO (05:45)
[2020-02-15] MEDS: Finasteride 5 MG Tablet PO (05:45)
[2020-02-15] MEDS: Levothyroxine 50 MCG Tablet PO (05:45)
[2020-02-15 06:25] LABS: Bedside Glucose 155 mg/dL (70-110)
[2020-02-15] MEDS: Insulin Lispro 100 UNIT/ML INSULN.PEN 23 UNIT SC ×2 (08:16→11:45)
[2020-02-15] MEDS: Iron Polysaccharide Complex 150 MG CAPSULE PO ×2 (08:21→18:11)
[2020-02-15] MEDS: Aspirin E.C. 81 MG Tablet PO (08:21)
[2020-02-15] MEDS: metFORMIN HCl 1,000 MG Tablet 1000 MG PO ×2 (08:21→18:10)
[2020-02-15 11:30] LABS: Bedside Glucose 184 mg/dL (70-110)
[2020-02-15 14:50] VITALS: BP 129/95; PULSE 75; RESP 20; TEMP 36.7; O2SAT 97
--- NOTE | 2020-02-15 15:00 | NURSING ---
Sutures removed from head per order. [address] rn aware.
[2020-02-15 17:00] LABS: Bedside Glucose 117 mg/dL (70-110)
[2020-02-15] MEDS: Glucerna Shake 120 ML LIQUID PO (18:09)
[2020-02-15] MEDS: Pravastatin 20 MG Tablet PO (21:10)
[2020-02-15] MEDS: MELATONIN 10 MG TABLET PO (21:10)
[2020-02-15 21:30] LABS: Bedside Glucose 177 mg/dL (70-110)
[2020-02-16 05:00] VITALS: BP 117/64; PULSE 71; RESP 16; TEMP 36.4; O2SAT 95
[2020-02-16] MEDS: Clopidogrel Bisulfate 75 MG Tablet PO (05:14)
[2020-02-16] MEDS: Levothyroxine 50 MCG Tablet PO (05:14)
[2020-02-16] MEDS: Finasteride 5 MG Tablet PO (05:14)
[2020-02-16] MEDS: Pantoprazole Sodium 40 MG Tablet PO (05:14)
[2020-02-16] MEDS: amLODIPine 5 MG Tablet PO (05:14)
[2020-02-16] MEDS: Furosemide 40 MG Tablet PO (05:15)
[2020-02-16] MEDS: Citalopram 10 MG Tablet PO (05:15)
[2020-02-16] MEDS: Isosorbide Mononitrate 30 MG Tablet PO (05:15)
[2020-02-16 06:21] LABS: Bedside Glucose 195 mg/dL (70-110)
[2020-02-16] MEDS: Glucerna Shake 120 ML LIQUID PO ×2 (07:56→17:54)
[2020-02-16] MEDS: Insulin Lispro 100 UNIT/ML INSULN.PEN 23 UNIT SC ×3 (07:57→17:55)
[2020-02-16] MEDS: metFORMIN HCl 1,000 MG Tablet 1000 MG PO ×2 (07:57→17:49)
[2020-02-16] MEDS: Aspirin E.C. 81 MG Tablet PO (07:57)
[2020-02-16] MEDS: Iron Polysaccharide Complex 150 MG CAPSULE PO ×2 (07:57→17:49)
[2020-02-16 11:00] LABS: Bedside Glucose 198 mg/dL (70-110)
[2020-02-16 11:35] VITALS: PULSE 58; RESP 18; O2SAT 97
--- NOTE | 2020-02-16 14:01 | NURSING ---
CALLED PT AND UP DATED ON PT.
[2020-02-16 14:07] VITALS: BP 143/79; PULSE 66; RESP 18; TEMP 36.7; O2SAT 97
[2020-02-16 16:30] LABS: Bedside Glucose 141 mg/dL (70-110)
[2020-02-16] MEDS: Hydrocortisone 2.5% Crm 1 APPLIC TOPICAL ×2 (17:45→21:33)
[2020-02-16] MEDS: Pravastatin 20 MG Tablet PO (21:29)
[2020-02-16] MEDS: MELATONIN 10 MG TABLET PO (21:29)
[2020-02-16 21:41] LABS: Bedside Glucose 158 mg/dL (70-110)
[2020-02-17 05:00] VITALS: BP 129/77; PULSE 68; RESP 18; TEMP 36.5; O2SAT 98
[2020-02-17] MEDS: Levothyroxine 50 MCG Tablet PO (05:02)
[2020-02-17] MEDS: amLODIPine 5 MG Tablet PO (05:02)
[2020-02-17] MEDS: Citalopram 10 MG Tablet PO (05:02)
[2020-02-17] MEDS: Isosorbide Mononitrate 30 MG Tablet PO (05:02)
[2020-02-17] MEDS: Clopidogrel Bisulfate 75 MG Tablet PO (05:02)
[2020-02-17] MEDS: Pantoprazole Sodium 40 MG Tablet PO (05:02)
[2020-02-17] MEDS: Furosemide 40 MG Tablet PO (05:02)
[2020-02-17] MEDS: Finasteride 5 MG Tablet PO (05:02)
[2020-02-17 05:50] LABS: Hematocrit 30.4 % (40-54); Hemoglobin 9.4 g/dL (13.0-16.5)
[2020-02-17 06:16] LABS: Bedside Glucose 186 mg/dL (70-110)
[2020-02-17] MEDS: Iron Polysaccharide Complex 150 MG CAPSULE PO ×2 (08:05→17:17)
[2020-02-17] MEDS: Insulin Lispro 100 UNIT/ML INSULN.PEN 23 UNIT SC ×3 (08:05→17:17)
[2020-02-17] MEDS: metFORMIN HCl 1,000 MG Tablet 1000 MG PO ×2 (08:05→17:17)
[2020-02-17] MEDS: Aspirin E.C. 81 MG Tablet PO (08:05)
[2020-02-17] MEDS: Glucerna Shake 120 ML LIQUID PO ×3 (08:50→17:17)
[2020-02-17] MEDS: traMADol 50 MG Tablet PO (10:05)
[2020-02-17 10:36] LABS: Bedside Glucose 192 mg/dL (70-110)
[2020-02-17] MEDS: Acetaminophen 500 MG Tablet 1000 MG PO (10:53)
--- NOTE | 2020-02-17 13:32 | PCM.PN.RX ---
Progress Note - Pharmacy Subjective: TCU ADMISSION Objective: Allergies losartan Adverse Reaction (Intermediate, Verified 02/10/20 16:43) Jitters metoprolol Adverse Reaction (Intermediate, Verified 02/10/20 16:43) Jitters pioglitazone HCl [From Spinlister] Adverse Reaction (Verified 02/10/20 16:43) Upset Stomach Current Medications Generic Name Dose Route Start Last Admin Trade Name Freq PRN Reason Stop Dose Admin Acetaminophen 1,000 mg 02/12/20 20:35 02/17/20 10:53 Tylenol PO 1,000 mg Q6H PRN PRN Administration Pain Score 1-3/10 Amlodipine Besylate 5 mg 02/13/20 06:00 02/17/20 05:02 Norvasc PO 5 mg DAILY SHARON Administration Aspirin 81 mg 02/13/20 08:00 02/17/20 08:05 Ecotrin PO 81 mg DAILYCM SHARON Administration Bisacodyl 10 mg 02/12/20 17:50 Dulcolax RECTAL DAILY PRN Constipation Cholecalciferol 2,000 unit 02/14/20 06:00 02/17/20 05:02 Vitamin D (25mcg) PO 2,000 unit DAILY SHARON Administration Citalopram Hydrobromide 10 mg 02/13/20 06:00 02/17/20 05:02 Celexa PO 10 mg DAILY SHARON Administration Clopidogrel Bisulfate 75 mg 02/13/20 06:00 02/17/20 05:02 Plavix PO 75 mg DAILY SH[facility]ON Administration Finasteride 5 mg 02/13/20 06:00 02/17/20 05:02 Proscar PO 5 mg DAILY SH[facility]ON Administration Furosemide 40 mg 02/13/20 06:00 02/17/20 05:02 Lasix PO 40 mg DAILY SHARON Administration Hydrocortisone 1 applic 02/16/20 16:07 02/16/20 21:33 Hytone TOPICAL 1 applicatio BID PRN PRN Administration hemorroids Protocol Insulin Glargine 70 units 02/13/20 22:00 02/16/20 21:30 Lantus ([facility]) SC 70 u QHS SHARON Administration Insulin Human Lispro 23 unit 02/14/20 06:45 02/17/20 10:50 Humalog Kwikpen ([facility]) SC 23 units TIDAC SHARON Administration Isosorbide Mononitrate 30 mg 02/13/20 06:00 02/17/20 05:02 Imdur PO 30 mg DAILY [facility]ON Administration Levothyroxine Sodium 50 mcg 02/13/20 06:00 02/17/20 05:02 Synthroid PO 50 mcg DAILY SH[facility]ON Administration Melatonin 10 mg 02/14/20 22:00 02/16/20 21:29 Melatonin PO 10 mg QHS SHARON Administration Metformin HCl 1,000 mg 02/13/20 08:00 02/17/20 08:05 Glucophage PO 1,000 mg BIDCM SH[facility]ON Administration Nutritional Formula (Lactose Free) 120 ml 02/13/20 07:45 02/17/20 13:12 Glucerna Shake PO 120 ml TIDCM SH[facility]ON Administration Oxycodone HCl 5 mg 02/12/20 17:11 Oxyir PO Q4H PRN PRN Pain Score 6-10/10 Pantoprazole Sodium 40 mg 02/13/20 06:00 02/17/20 05:02 Protonix PO 40 mg DAILY [facility] Administration Polyethylene Glycol 17 gm 02/13/20 06:00 02/17/20 05:03 Miralax PO Not Given BID [facility] Polysaccharide Iron Complex 150 mg 02/13/20 08:00 02/17/20 08:05 Ferrex 150 PO 150 mg BIDCM [facility] Administration Pravastatin Sodium 20 mg 02/12/20 22:00 02/16/20 21:29 Pravachol PO 20 mg QHS [facility] Administration Senna/Docusate Sodium 2 tablet 02/13/20 06:00 02/17/20 05:03 Senokot-S, [place]-Colace PO Not Given BID [facility] Sodium Chloride 10 - 40 ml 02/12/20 20:11 02/14/20 05:35 IV 20 ml UD PRN Administration SALINE FLUSH Tramadol HCl 50 mg 02/12/20 20:35 02/17/20 10:05 Ultram PO 50 mg Q6H PRN PRN Administration Pain Score 4-5/10 Tuberculin PPD 5 tu 02/20/20 10:00 Tubersol, Aplisol, Ppd ID 02/20/20 10:01 X1 ONE Problem List (Last Reviewed 02/08/20 @ 00:[address] Arsenio Castro MD) Fall (Acute) Weakness (Acute) Left hip pain (Acute) Syncope (Chronic) Chronic kidney disease (Chronic) Hypertension (Chronic) Hypothyroidism (Chronic) BPH (benign prostatic hyperplasia) (Chronic) GERD (gastroesophageal reflux disease) (Chronic) Chronic systolic heart failure (Chronic) Body mass index (BMI) 40.0-44.9, adult (Chronic) Vital Signs Temp Pulse Resp BP Pulse Ox 97.7 F L 68 18 129/77 H 98 02/17/20 05:00 02/17/20 05:00 02/17/20 05:00 02/17/20 05:00 02/17/20 05:00 Oxygen Delivery Method Room Air Weight: 105.262 kg Body Mass Index (BMI) 40.2 Finger Stick Blood Glucose 67 Sodium 136 mmol/L (136-145) 02/13/20 05:05 Potassium 4.7 mmol/L (3.5-5.1) 02/13/20 05:05 Chloride 100 mmol/L (98-107) 02/13/20 05:05 Carbon Dioxide 32.0 mmol/L (21.0-32.0) 02/13/20 05:05 Anion Gap 4 (5-15) L 02/13/20 05:05 BUN 17 mg/dL (7-18) 02/13/20 05:05 Creatinine 1.42 mg/dL (0.70-1.30) H 02/13/20 05:05 Est GFR (MDRD) Af Amer 61 mL/min (>60) 02/13/20 05:05 Est GFR (MDRD) Non-Af 51 mL/min (>60) L 02/13/20 05:05 BUN/Creatinine Ratio 12.0 RATIO (10-20) 02/13/20 05:05 Glucose 272 mg/dL (74-106) H 02/13/20 05:05 Assessment/Plan: 1. Pain: Tylenol 1000mg PO Q6h PRN pain 1-3/10, Ultram 50mg PO Q6h PRN pain 4-5/10, Oxycodone 5mg PO Q4h PRN pain 6-10/10. Please continue to monitor for increased/decreased pain, PRN medication usage. 2. CAD/CHF/HTN: Amlodipine 5mg PO Daily, Imdur 30mg PO Daily, Plavix 75mg PO Daily, Lasix 40mg PO Daily, Aspirin 81mg PO Daily, Pravastatin 20mg PO QHS. Please continue to monitor BP, pulse, electrolytes, S/S bleeding/bruising, lipid panel at least annually or sooner if clinically indicated. 3. Diabetes: Metformin 1,000mg PO BID, Lantus 70 unit SC QHS, Humalog 23 unit SC TIDAC. Please continue to monitor eGFR for metformin dosing (eGFR =61; no adjustment at this time), S/S hypoglycemia. 4. BPH: Finasteride 5mg PO Daily. Please continue to monitor for symptom improvement. 5. Hypothyroid: Synthroid 50mcg PO Daily. Please continue to monitor Thyroid panel as clinically indicated, monitor for S/S hyper/hypothyroidism. 6.Iron Deficiency: Ferrex 150mg PO Daily. Please continue to monitor iron panels as clinically indicated for clinical improvement. 7. Vitamin D Deficiency: Cholecalciferol 2,000 unit PO Daily. Please continue to monitor Vitamin D levels as clinically indicated. 8. GERD: Protonix 40mg PO Daily. Please continue to monitor for S/S GERD, encourage non-pharmacologic treatment when possible. Psychotropic Medications: 9. Depression: Celexa 10mg PO Daily. Please consider a GDR by 07/2020 if clinically appropriate. Unnecessary Medications: 10. Melatonin 10mg PO QHS: Medication ordered with no indication for use. Please evaluate Bowel Regimen: *Miralax 17g PO BID, Senna/Docusate 2 tab PO BID, Dulcolax 10mg AL Daily PRN. Please continue to monitor for increased/decreased S/S diarrhea and/or constipation. Per MAR, pt has refused the past 3 scheduled doses. Please consider changing scheduled dosing to PRN, thank you. Date of Note:: 02/17/20 - Provider Comments Provider responsibility: Provider responsible to enter orders to implement recommendations
[2020-02-17 14:13] VITALS: BP 141/74; PULSE 74; RESP 20; TEMP 36.6; O2SAT 97
--- NOTE | 2020-02-17 15:32 | CHAPLAIN ---
Type of Pastoral Visit _x__ Initial Visit ___ Follow-up Visit ___ On-call Visit ___ General Patient Visit ___ Spiritual Assessment ___ Family Conference ___ Bereavement ___ Rapid Response ___ Code Blue ___ Other (describe below) Pastoral Care Referral From _x__ Patient ___ Family ___ Nurse ___ Physician ___ Oracle Database Analyst ___ Pier Hand ___ Other (describe below) Sacrament/Intervention _x__ Active listening ___ Anointing ___ Buddhism ___ Bereavement ___ Communion _x__ Iva exploration ___ _x__ Life review _x__ Prayer ___ Reconciliation ___ Sacrament of Sick _x__ Supportive presence ___ Wedding ___ Other (describe below) Pastoral Comments also assisted Physical Therapy Resident with a FaceTime call to spouse
[2020-02-17 16:50] LABS: Bedside Glucose 166 mg/dL (70-110)
[2020-02-17] MEDS: Senna/Docusate Sodium 1 Tablet 2 TABLET PO (17:18)
[2020-02-17] MEDS: Polyethylene Glycol 3350 17 GM PACKET PO (17:18)
[2020-02-17 21:30] LABS: Bedside Glucose 141 mg/dL (70-110)
[2020-02-17] MEDS: Pravastatin 20 MG Tablet PO (21:34)
[2020-02-17] MEDS: MELATONIN 10 MG TABLET PO (21:34)
[2020-02-18 05:00] VITALS: BP 131/59; PULSE 58; RESP 18; TEMP 36.3; O2SAT 98
[2020-02-18] MEDS: Citalopram 10 MG Tablet PO (05:48)
[2020-02-18] MEDS: Finasteride 5 MG Tablet PO (05:48)
[2020-02-18] MEDS: Isosorbide Mononitrate 30 MG Tablet PO (05:48)
[2020-02-18] MEDS: Levothyroxine 50 MCG Tablet PO (05:48)
[2020-02-18] MEDS: Senna/Docusate Sodium 1 Tablet 2 TABLET PO ×2 (05:49→17:28)
[2020-02-18] MEDS: Pantoprazole Sodium 40 MG Tablet PO (05:49)
[2020-02-18] MEDS: Furosemide 40 MG Tablet PO (05:49)
[2020-02-18] MEDS: amLODIPine 5 MG Tablet PO (05:49)
[2020-02-18] MEDS: Clopidogrel Bisulfate 75 MG Tablet PO (05:49)
[2020-02-18 06:21] LABS: Bedside Glucose 153 mg/dL (70-110)
[2020-02-18] MEDS: Glucerna Shake 120 ML LIQUID PO ×3 (08:11→17:31)
[2020-02-18] MEDS: traMADol 50 MG Tablet PO (08:12)
[2020-02-18] MEDS: Iron Polysaccharide Complex 150 MG CAPSULE PO ×2 (08:14→17:28)
[2020-02-18] MEDS: metFORMIN HCl 1,000 MG Tablet 1000 MG PO ×2 (08:14→17:27)
[2020-02-18] MEDS: Aspirin E.C. 81 MG Tablet PO (08:14)
[2020-02-18] MEDS: Insulin Lispro 100 UNIT/ML INSULN.PEN 23 UNIT SC ×2 (08:14→12:04)
[2020-02-18 11:05] VITALS: PULSE 83; RESP 18; O2SAT 93
[2020-02-18 11:10] LABS: Bedside Glucose 132 mg/dL (70-110)
[2020-02-18] MEDS: Acetaminophen 500 MG Tablet 1000 MG PO (12:56)
[2020-02-18 13:29] VITALS: BP 135/71; PULSE 87; RESP 18; TEMP 35.9; O2SAT 98
[2020-02-18 16:31] LABS: Bedside Glucose 82 mg/dL (70-110)
[2020-02-18] MEDS: Polyethylene Glycol 3350 17 GM PACKET PO (17:28)
[2020-02-18 21:25] LABS: Bedside Glucose 162 mg/dL (70-110)
[2020-02-18] MEDS: MELATONIN 10 MG TABLET PO (21:45)
[2020-02-18] MEDS: Pravastatin 20 MG Tablet PO (21:45)
[2020-02-19 05:00] VITALS: BP 110/69; PULSE 66; RESP 18; TEMP 36.4; O2SAT 95
[2020-02-19] MEDS: Furosemide 40 MG Tablet PO (05:18)
[2020-02-19] MEDS: Senna/Docusate Sodium 1 Tablet 2 TABLET PO ×2 (05:18→17:27)
[2020-02-19] MEDS: Citalopram 10 MG Tablet PO (05:18)
[2020-02-19] MEDS: Isosorbide Mononitrate 30 MG Tablet PO (05:18)
[2020-02-19] MEDS: Pantoprazole Sodium 40 MG Tablet PO (05:18)
[2020-02-19] MEDS: Levothyroxine 50 MCG Tablet PO (05:18)
[2020-02-19] MEDS: Clopidogrel Bisulfate 75 MG Tablet PO (05:18)
[2020-02-19] MEDS: amLODIPine 5 MG Tablet PO (05:19)
[2020-02-19] MEDS: Finasteride 5 MG Tablet PO (05:19)
[2020-02-19 06:16] LABS: Bedside Glucose 128 mg/dL (70-110)
[2020-02-19] MEDS: Glucerna Shake 120 ML LIQUID PO ×2 (08:20→17:26)
[2020-02-19] MEDS: Aspirin E.C. 81 MG Tablet PO (08:21)
[2020-02-19] MEDS: metFORMIN HCl 1,000 MG Tablet 1000 MG PO ×2 (08:21→17:27)
[2020-02-19] MEDS: Iron Polysaccharide Complex 150 MG CAPSULE PO ×2 (08:21→17:27)
[2020-02-19] MEDS: Insulin Lispro 100 UNIT/ML INSULN.PEN 23 UNIT SC ×2 (08:22→17:59)
[2020-02-19 11:05] LABS: Bedside Glucose 90 mg/dL (70-110)
--- NOTE | 2020-02-19 12:27 | CASEMGMT ---
Social Work IDT met with patient and via conference call for care plan meeting. Discussed patient's progress in therapy. Pt is Terrance for all ADLS, adlib in room, ambulating 100+ft in room with FWW, SBA for [address] working on compensatory strategies, word fining and memory. Pt is on a carb controlled diet with low sodium, receiving Glucerna shake and has good intake. pt is out of room isolation 02/25. Have not heard outcome from insurance update 02/16. However, pt is ready to DC home. IDT agreeable to DC 02/20. Pt agreeable to [facility] PT/OT/ST. Referral made. No DME needs. Plan: DC home with 02/20 with [facility] PT/OT/ST. No DME. Hayley Manzanares, FORMULA CLERK HYDRAULIC AND PLUMBING INSTALLER
[2020-02-19 13:58] VITALS: BP 137/69; PULSE 92; RESP 18; TEMP 36.4; O2SAT 98
--- NOTE | 2020-02-19 14:15 | NURSING ---
family up dated at plan of care meeting
[2020-02-19] MEDS: Polyethylene Glycol 3350 17 GM PACKET PO (14:40)
--- NOTE | 2020-02-19 15:36 | CHAPLAIN ---
Type of Pastoral Visit ___ Initial Visit _x__ Follow-up Visit ___ On-call Visit ___ General Patient Visit ___ Spiritual Assessment ___ Family Conference ___ Bereavement ___ Rapid Response ___ Code Blue ___ Other (describe below) Pastoral Care Referral From _x__ Patient ___ Family ___ Nurse ___ Physician ___ Reclamation Engineer ___ Employment Clerk ___ Other (describe below) Sacrament/Intervention _x__ Active listening ___ Anointing ___ Muslim ___ Bereavement ___ Communion ___ Iva exploration ___ ___ Life review _x__ Prayer ___ Reconciliation ___ Sacrament of Sick _x__ Supportive presence ___ Wedding ___ Other (describe below) Pastoral Comments Today is 61 Anniversary for patient; he was able to speak to today and she had sent him raygoza; well wishes and time given for prayer with pt
[2020-02-19 17:00] LABS: Bedside Glucose 152 mg/dL (70-110)
[2020-02-19] MEDS: Pravastatin 20 MG Tablet PO (20:54)
[2020-02-19] MEDS: MELATONIN 10 MG TABLET PO (20:54)
[2020-02-19 21:15] VITALS: RESP 18
[2020-02-19 21:25] LABS: Bedside Glucose 211 mg/dL (70-110)
--- NOTE | 2020-02-19 21:28 | PCM.DC ---
- Discharge Diagnoses Current Active Problems: Current Active and Chronic Problems (Last Reviewed 02/08/20 @ 00:[address] Arsenio Castro MD) Fall (Acute) Weakness (Acute) Left hip pain (Acute) Syncope (Chronic) Chronic kidney disease (Chronic) Hypertension (Chronic) Hypothyroidism (Chronic) BPH (benign prostatic hyperplasia) (Chronic) GERD (gastroesophageal reflux disease) (Chronic) Chronic systolic heart failure (Chronic) Body mass index (BMI) 40.0-44.9, adult (Chronic) You will use the following diet at home:: No restrictions, Regular Your food should be the consistency of: Regular Your liquids should be the consistency of: Regular/Thin Discharge Activity: Return to Normal Activity, May Shower, Use Walker Weight Bearing Status: Weight bearing as tolerated Call your doctor if you observe: Fever of 101 or Higher, Inability to urinate, Inability to have a bowel movement, Shortness of breath, Chest pain, Uncontrolled pain Allergies/Adverse Reactions: Allergies losartan Adverse Reaction (Intermediate, Verified 02/10/20 16:43) Jitters metoprolol Adverse Reaction (Intermediate, Verified 02/10/20 16:43) Jitters pioglitazone HCl [From Actos] Adverse Reaction (Verified 02/10/20 16:43) Upset Stomach Medications to take at Discharge Levothyroxine [Synthroid] 50 mcg PO DAILY 01/05/14 Pravastatin [Pravachol] 20 mg PO DAILY 01/05/14 metFORMIN HCl [Glucophage] 1,000 mg PO BIDCM 01/05/14 Cholecalciferol (Vitamin D3) [Vitamin D3] 5,000 unit PO DAILY 06/29/15 Finasteride [Proscar] 5 mg PO DAILY 06/29/15 Insulin NPH/Reg 70/30 [Novolin 70/30] 50 units SC BREAKFAST 06/29/15 Pantoprazole Sodium [Protonix] 40 mg PO DAILY 06/29/15 Aspirin [Adult Low Dose Aspirin EC] 81 mg PO DAILY 07/24/15 insulin human U-100 NPH-regulr 70-30 mix 100 unit/mL subcutaneous susp 40 unit SC DINNER ml 10/17/18 citalopram 10 mg tablet 10 mg PO DAILY tab 07/23/19 Amlodipine Besylate [Norvasc] 5 mg PO DAILY 02/10/20 Clopidogrel Bisulfate [Clopidogrel] 75 mg PO DAILY 02/12/20 Furosemide 40 mg PO DAILY 02/12/20 Isosorbide Mononitrate [Isosorbide Mononitrate ER] 30 mg PO DAILY 02/12/20 Acetaminophen [Tylenol] 1,000 mg PO Q6H PRN PRN tablet 02/19/20 Iron Polysaccharide Complex [Ferrex 150] 150 mg PO BIDCM #60 cap 02/19/20 Melatonin 10 mg PO QHS tablet 02/19/20 traMADol [Ultram] 50 mg PO Q6H PRN PRN 7 Days #28 tablet 02/19/20 The following prescriptions were given: Iron Polysaccharide Complex [Ferrex 150] 150 mg PO BIDCM #60 cap Transmission Status: Pending to [facility] [id number] traMADol [Ultram] 50 mg PO Q6H PRN PRN 7 Days #28 tablet PRN Reason: Pain Score 4-5/10 Transmission Status: Sent to [facility] [id number] Primary Care Physician: Soham Jones III, MD [Primary Care Provider] - Please follow up with your Primary Care Physician in: 1 week. Test Results: Test results from this visit will be discussed in further detail at your follow-up appointment, if applicable. When: 2 weeks Please Follow Up With: Capo Gayle MD Please Follow Up With: Dr. Carmona When: 2 weeks after discharge Proposed Discharge Date: 02/21/20
--- NOTE | 2020-02-19 21:30 | DS.PCM_ITS ---
Discharge Date and Diagnosis - Problem List Patient Problems: Active and Suspected Problems (Last Reviewed 02/08/20 @ 00:[address] Arsenio Castro MD) Fall (Acute) Weakness (Acute) Left hip pain (Acute) Date of Admission: 02/12/20 Date of Discharge: 02/21/20 - Primary Discharge Diagnosis Acute Problems: Active Problems (Last Reviewed 02/08/20 @ 00:[address] Arsenio Castro MD) Fall (Acute) Weakness (Acute) Left hip pain (Acute) - Secondary Discharge Diagnosis Chronic Problems: Chronic Problems (Last Reviewed 02/08/20 @ 00:[address] 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) Atherosclerotic heart disease of [place] coronary artery without angina pectoris (Chronic) History of coronary artery stent placement (Chronic 07/01/15) RUDDY to Prox-Mid LAD w/ 3.5 x 20 Promus Stent done 07/01/15 Essential (primary) hypertension (Chronic) HLD (hyperlipidemia) (Chronic) DANYELL (obstructive sleep apnea) (Chronic) Hospital Course and Treatment Imaging Results: 02/12/20 17:33 Diet: Carbohydrate Controlled Food consistency:: Regular Liquid Consistency:: Regular/Thin Dietary Modifications:: Sodium Restricted Is pt able to select menu?: Yes Clinical Impression(s) from Imaging Studies Lumbar Spine X-Ray 02/12/20 18:25 IMPRESSION: No fracture or dislocation in the lumbar spine. Stable postsurgical and degenerative change. Electronically Signed: Capo Chase, at 18:40 EDT Tel , Service support , Labs (Last 48 Hours) 02/17/20 02/18/2002/17/20 21:27 06:05 11:05 POC Glucose 141 H 153 H 132 H 02/18/20 02/18/20 02/19/20 16:21 21:20 06:03 POC Glucose 82 162 H 128 H 02/19/20 02/19/20 02/19/20 11:00 16:57 21:20 POC Glucose 90 152 H 211 H Operations: appendectomy Procedures: None Summary of Care Provided: The patient is a 84 year old Male with below past medical history hospitalized for fall, weakness secondary to left hip pain, complicated by iron deficiency anemia, admitted to TCU with debility, here for rehabilitation, strengthening, prior to discharge home with . Discharge home with , [facility] PT/OT/ST. Patient Problems: Active and Suspected Problems (Last Reviewed 02/08/20 @ 00:[address] Arsenio Castro MD) Fall (Acute) Weakness (Acute) Left hip pain (Acute) - Physical Exam Vitals/I&O's: Vital Signs Temp Pulse Resp BP Pulse Ox 97.6 F L 92 18 137/69 H 98 02/19/20 13:58 02/19/20 13:58 02/19/20 21:15 02/19/20 13:58 02/19/20 13:58 Oxygen Delivery Method Room Air Weight: 103.022 kg Body Mass Index (BMI) 40.2 Finger Stick Blood Glucose 67 Intake and Output for Last 24 Hours 02/17/20 02/18/20 02/19/20 23:59 23:59 23:59 Intake Total 840 / 840 1320 / 1320 480 / 480 Balance 840 / 840 1320 / 1320 480 / 480 Laboratory Results 02/19/20 06:03: POC Glucose 128 H 02/19/20 11:00: POC Glucose 90 02/19/20 16:57: POC Glucose 152 H 02/19/20 21:20: POC Glucose 211 H Current Medications Acetaminophen (Tylenol) 1,000 mg PO Q6H PRN PRN PRN Reason: Pain Score 1-3/10 Last Admin: 02/18/20 12:56 Dose: 1,000 mg Documented by: Amlodipine Besylate (Norvasc) 5 mg PO DAILY SHARON Last Admin: 02/19/20 05:19 Dose: 5 mg Documented by: [facility] Last Admin: 02/19/20 08:21 Dose: 81 mg Documented by: Bisacodyl (Dulcolax) 10 mg RECTAL DAILY PRN PRN Reason: Constipation Cholecalciferol (Vitamin D (25mcg)) 2,000 unit PO DAILY [facility] Last Admin: 02/19/20 05:18 Dose: 2,000 unit Documented by: Citalopram Hydrobromide (Celexa) 10 mg PO DAILY [facility] Last Admin: 02/19/20 05:18 Dose: 10 mg Documented by: Clopidogrel Bisulfate (Plavix) 75 mg PO DAILY [facility] Last Admin: 02/19/20 05:18 Dose: 75 mg Documented by: Finasteride (Proscar) 5 mg PO DAILY [facility] Last Admin: 02/19/20 05:19 Dose: 5 mg Documented by: Furosemide (Lasix) 40 mg PO DAILY [facility] Last Admin: 02/19/20 05:18 Dose: 40 mg Documented by: Hydrocortisone (Hytone) 1 applic TOPICAL BID PRN PRN; Protocol PRN Reason: hemorroids Last Admin: 02/16/20 21:33 Dose: 1 applicatio Documented by: Insulin Glargine (Lantus (Bkc)) 40 units SC QHS [facility] Insulin Human Lispro (Humalog Kwikpen (Bkc)) 13 unit SC TIDAC [facility] Isosorbide Mononitrate (Imdur) 30 mg PO DAILY [facility] Last Admin: 02/19/20 05:18 Dose: 30 mg Documented by: Levothyroxine Sodium (Synthroid) 50 mcg PO DAILY [facility] Last Admin: 02/19/20 05:18 Dose: 50 mcg Documented by: Melatonin (Melatonin) 10 mg PO QHS [facility] Last Admin: 02/19/20 20:54 Dose: 10 mg Documented by: Metformin HCl (Glucophage) 1,000 mg PO BIDCM [facility] Last Admin: 02/19/20 17:27 Dose: 1,000 mg Documented by: Nutritional Formula (Lactose Free) (Glucerna Shake) 120 ml PO TIDCM [facility] Last Admin: 02/19/20 17:26 Dose: 120 ml Documented by: Oxycodone HCl (Oxyir) 5 mg PO Q4H PRN PRN PRN Reason: Pain Score 6-10/10 Pantoprazole Sodium (Protonix) 40 mg PO DAILY [facility] Last Admin: 02/19/20 05:18 Dose: 40 mg Documented by: Polyethylene Glycol (Miralax) 17 gm PO BID [facility] Last Admin: 02/19/20 14:40 Dose: 17 gm Documented by: Polysaccharide Iron Complex ([facility]rex 150) [facility] Last Admin: 02/19/20 17:27 Dose: 150 mg Documented by: Pravastatin Sodium (Pravachol) 20 mg PO QHS [facility] Last Admin: 02/19/20 20:54 Dose: 20 mg Documented by: Senna/Docusate Sodium (Senokot-S, [place]-Colace) 2 tablet PO BID [facility] Last Admin: 02/19/20 17:27 Dose: 2 tablet Documented by: Sodium Chloride () 10 - 40 ml IV UD PRN PRN Reason: SALINE FLUSH Last Admin: 02/14/20 05:35 Dose: 20 ml Documented by: Tramadol HCl (Ultram) 50 mg PO Q6H PRN PRN PRN Reason: Pain Score 4-5/10 Last Admin: 02/18/20 08:12 Dose: 50 mg Documented by: Tuberculin PPD (Tubersol, Aplisol, Ppd) 5 tu ID [id number] Stop: 02/20/20 10:01 Discharge Diet: No Restrictions Discharge Activity: Return to Normal Activity, May Shower, Use Walker Weight Bearing Status: Weight bearing as tolerated Call your doctor if you observe: Fever of 101 or Higher, Inability to urinate, Inability to have a bowel movement, Shortness of breath, Chest pain, Uncontrolled pain Home Medications: Medications to take at Discharge Levothyroxine [Synthroid] 50 mcg PO DAILY 01/05/14 Pravastatin [Pravachol] 20 mg PO DAILY 01/05/14 metFORMIN HCl [Glucophage] 1,000 mg PO BID 01/05/14 Cholecalciferol (Vitamin D3) [Vitamin D3] 5,000 unit PO DAILY 06/29/15 Finasteride [Proscar] 5 mg PO DAILY 06/29/15 Insulin NPH/Reg 70/30 [Novolin 70/30] 50 units SC BREAKFAST 06/29/15 Pantoprazole Sodium [Protonix] 40 mg PO DAILY 06/29/15 Aspirin [Adult Low Dose Aspirin EC] 81 mg PO DAILY 02/05/16 insulin human U-100 NPH-regulr 70-30 mix 100 unit/mL subcutaneous susp 40 unit SC DINNER ml 10/17/18 citalopram 10 mg tablet 10 mg PO DAILY tab 07/23/19 Amlodipine Besylate [Norvasc] 5 mg PO DAILY 02/10/20 Clopidogrel Bisulfate [Clopidogrel] 75 mg PO DAILY 02/12/20 Furosemide 40 mg PO DAILY 02/12/20 Isosorbide Mononitrate [Isosorbide Mononitrate ER] 30 mg PO DAILY 02/12/20 Acetaminophen [Tylenol] 1,000 mg PO Q6H PRN PRN tablet 02/19/20 Iron Polysaccharide Complex [Ferrex 150] 150 mg PO BIDCM #60 cap 02/19/20 Melatonin 10 mg PO QHS tablet 02/19/20 traMADol [Ultram] 50 mg PO Q6H PRN PRN 7 Days #28 tablet 02/19/20 Following Prescriptions Were Given to Patient: Iron Polysaccharide Complex [Ferrex 150] 150 mg PO BIDCM #60 cap Transmission Status: Pending to [facility] 181 traMADol [Ultram] 50 mg PO Q6H PRN PRN 7 Days #28 tablet PRN Reason: Pain Score 4-5/10 Transmission Status: Sent to [facility] 181 Primary Care Physician: Soham Jones III, MD [Primary Care Provider] - Please follow up with your Primary Care Physician in: 1 week. When: 2 weeks Please Follow Up With: Capo Gayle MD Please Follow Up With: Dr. Carmona When: 2 weeks after discharge Disposition: Home with Home Health Minutes spent on discharge:: 35 Patient Condition:: Stable Medical Necessity - Tobacco Use Smoking Status: Former smoker Tobacco Use: Non-smoker Meaningful Use Info Meaningful Use Diagnoses (Choose all that apply): None applicable
[2020-02-20 05:00] VITALS: BP 119/77; PULSE 94; RESP 18; TEMP 36.8; O2SAT 95
[2020-02-20 05:53] LABS: Absolute Lymphocyte Count 1.55 X10^3/uL (0.83-4.51); Absolute Neutrophil Count 2.8 X10^3/uL (2.0-7.7); Basophil# 0.01 X10^3/uL; Basophil% 0.2 % (0-1); Eosinophil# 0.04 X10^3/uL; Eosinophils% 0.8 % (0-5); Hematocrit 31.1 % (40-54); Hemoglobin 9.8 g/dL (13.0-16.5); Lymphocyte # 1.55 X10^3/ul (4.0); Lymphocyte % 30.3 % (19-41); Mean Corp Hgb Conc 31.5 g/dL (32-36); Mean Corpuscular Hgb 28.2 pg (27.0-32.0); Mean Corpuscular Volume 89.4 fL (80-94); Mean Platelet Vol. 9.2 fl (6.2-12.0); Monocyte# 0.68 X10^3/uL; Monocyte% 13.3 % (0-10); NRBC Flagged by Analyzer 0 % (0-5); Neutrophil # 2.76 X10^3/uL (2.7-7.7); Platelet Count 297 K/mm3 (150-450); RBC Distribution Width SD 53.1 fl (35.1-43.9); Red Blood Count 3.48 M/mm3 (4.6-6.2); White Blood Count 5.1 K/mm3 (4.4-11.0)
[2020-02-20] MEDS: Finasteride 5 MG Tablet PO (06:00)
[2020-02-20] MEDS: Polyethylene Glycol 3350 17 GM PACKET PO ×2 (06:00→17:09)
[2020-02-20] MEDS: Clopidogrel Bisulfate 75 MG Tablet PO (06:00)
[2020-02-20] MEDS: Isosorbide Mononitrate 30 MG Tablet PO (06:01)
[2020-02-20] MEDS: Pantoprazole Sodium 40 MG Tablet PO (06:01)
[2020-02-20] MEDS: Levothyroxine 50 MCG Tablet PO (06:01)
[2020-02-20] MEDS: Furosemide 40 MG Tablet PO (06:01)
[2020-02-20] MEDS: Citalopram 10 MG Tablet PO (06:01)
[2020-02-20] MEDS: amLODIPine 5 MG Tablet PO (06:02)
[2020-02-20] MEDS: Senna/Docusate Sodium 1 Tablet 2 TABLET PO ×2 (06:02→17:09)
[2020-02-20 06:22] LABS: Anion Gap 9 (5-15); BUN 31 mg/dL (7-18); BUN/Creat Ratio 21.7 RATIO (10-20); Calcium,Total 9.3 mg/dL (8.5-10.1); Chloride 97 mmol/L (98-107); Creatinine, Serum 1.43 mg/dL (0.70-1.30); EST Glomerular Filtration Rate 50 mL/min (>60); Est Glom Filt Rate - Afr Amer 61 mL/min (>60); Estimated Creatinine Clearance 33.35 ml/min; Glucose 103 mg/dL (74-106); Sodium Level 133 mmol/L (136-145)
[2020-02-20 06:25] LABS: Bedside Glucose 141 mg/dL (70-110)
[2020-02-20] MEDS: Insulin Lispro 100 UNIT/ML INSULN.PEN 13 UNIT SC ×2 (07:33→11:30)
[2020-02-20] MEDS: Aspirin E.C. 81 MG Tablet PO (07:33)
[2020-02-20] MEDS: metFORMIN HCl 1,000 MG Tablet 1000 MG PO ×2 (07:33→17:09)
[2020-02-20] MEDS: Iron Polysaccharide Complex 150 MG CAPSULE PO ×2 (07:33→17:08)
[2020-02-20] MEDS: Glucerna Shake 120 ML LIQUID PO ×3 (07:46→17:09)
[2020-02-20 08:32] VITALS: PULSE 81; RESP 16; O2SAT 98
[2020-02-20] MEDS: Tuberculin,Purif.prot.deriv. 50 TU/ML Vial 5 ML ID (10:29)
[2020-02-20 10:55] LABS: Bedside Glucose 172 mg/dL (70-110)
[2020-02-20 13:39] VITALS: BP 111/64; PULSE 71; RESP 16; TEMP 36.4; O2SAT 97
[2020-02-20 17:06] LABS: Bedside Glucose 86 mg/dL (70-110)
[2020-02-20 21:26] LABS: Bedside Glucose 138 mg/dL (70-110)
[2020-02-20] MEDS: MELATONIN 10 MG TABLET PO (22:17)
[2020-02-20] MEDS: Pravastatin 20 MG Tablet PO (22:17)
[2020-02-21 05:00] VITALS: BP 106/59; PULSE 58; RESP 18; TEMP 36.9; O2SAT 97
[2020-02-21 06:20] LABS: Bedside Glucose 100 mg/dL (70-110)
[2020-02-21] MEDS: Clopidogrel Bisulfate 75 MG Tablet PO (06:51)
[2020-02-21] MEDS: Finasteride 5 MG Tablet PO (06:51)
[2020-02-21] MEDS: Senna/Docusate Sodium 1 Tablet 2 TABLET PO (06:52)
[2020-02-21] MEDS: amLODIPine 5 MG Tablet PO (06:52)
[2020-02-21] MEDS: Isosorbide Mononitrate 30 MG Tablet PO (06:52)
[2020-02-21] MEDS: Levothyroxine 50 MCG Tablet PO (06:52)
[2020-02-21] MEDS: Furosemide 40 MG Tablet PO (06:52)
[2020-02-21] MEDS: Pantoprazole Sodium 40 MG Tablet PO (06:52)
[2020-02-21] MEDS: Citalopram 10 MG Tablet PO (06:52)
[2020-02-21] MEDS: Aspirin E.C. 81 MG Tablet PO (09:01)
[2020-02-21] MEDS: metFORMIN HCl 1,000 MG Tablet 1000 MG PO (09:01)
[2020-02-21] MEDS: Iron Polysaccharide Complex 150 MG CAPSULE PO (09:03)
[2020-02-21 09:52] VITALS: PULSE 88; RESP 18; O2SAT 98
[2020-02-21 10:14] VITALS: BP 124/63; PULSE 88; RESP 18; TEMP 36.6; O2SAT 98
--- NOTE | 2020-02-25 08:33 | MDS.RN ---
Information for the mds was obtained from review of the clinical record, interview of resident, staff, and direct observation of resident's care.
== END 2020-02-21 10:16 | disposition home health service (06) | DRG 812 ==
PROVIDERS: Admitting Provider Family Medicine Geriatric Medicine; PCP Family Medicine; Visit Provider Family Medicine Geriatric Medicine
DX: D50.9 Iron deficiency anemia, unspecified (principal); I50.22 Chronic systolic (congestive) heart failure; I13.0 Hypertensive heart and chronic kidney disease with heart failure and stage 1 through stage 4 chronic kidney disease, or unspecified chronic kidney disease; Z68.41 Body mass index [BMI] 40.0-44.9, adult; M25.552 Pain in left hip; E03.9 Hypothyroidism, unspecified; N18.3 Chronic kidney disease, stage 3 (moderate); E11.22 Type 2 diabetes mellitus with diabetic chronic kidney disease; E55.9 Vitamin D deficiency, unspecified; I25.10 Atherosclerotic heart disease of native coronary artery without angina pectoris; F32.9 Major depressive disorder, single episode, unspecified; N40.0 Benign prostatic hyperplasia without lower urinary tract symptoms; K21.9 Gastro-esophageal reflux disease without esophagitis; E78.5 Hyperlipidemia, unspecified; G47.33 Obstructive sleep apnea (adult) (pediatric); M19.90 Unspecified osteoarthritis, unspecified site; E66.9 Obesity, unspecified; Z87.891 Personal history of nicotine dependence
CPT/HCPCS: 36415; 72100; 80048; 82962; 85014; 85018; 85025; 87635; 92507; 92523; 94799; 97110; 97116; 97162; 97166; 97530; 97535; 97802; A4216; U0003

== ENCOUNTER 2020-02-28 12:46 | Emergency (ER) | payer MEDICARE, SELFPAY ==
[2020-02-12 16:49] VITALS: BMI 40.2
[2020-02-28 12:47] VITALS: BP 114/69; PULSE 68; RESP 18; TEMP 36.2; O2SAT 99; BMI 39.8
--- NOTE | 2020-02-28 12:55 | VDLE_ITS ---
Reason For Study: Swelling Procedure LEFT Exam performed portable in ED. GSV is normal. A preliminary report was called and/or faxed CFV is compressible, spontaneous, phasic, to Sis[place]. competent, and demonstrates normal augmentation. FV is compressible, spontaneous, phasic, competent and demonstrates normal augmentation. POP V is compressible, spontaneous, phasic, competent and demonstrates normal augmentation. T/P Trunk is compressible. PTV is compressible. LT PerV is compressible. Interpretation Summary Deep veins of the left lower extremity are patent and compressible segmentally. There is no evidence of left lower extremity deep vein thrombosis. Valvular competence appears intact within the proximal deep venous system on the left . The left great saphenous vein appears patent and compressible segmentally. Ordering Physician: Jose Rock Referring Physician: ROQUE Jones M.D. Performed By: Sol Parsons RVT
--- NOTE | 2020-02-28 12:57 | ED.VIS.LOWEX ---
History of Present Illness Informant: Patient, Significant Other Occurred: Yesterday Mechanism/Context: - - no injury or trauma Onset: Yesterday Context: Gradual Onset Timing: Continuous Quality of Pain: Throbbing Location: left calf Current Severity: Moderate Maximum Severity: Moderate Worsened by: movement, walking, palpation Relieved by: rest Associated Symptoms: Negative for: Parasthesia, Weakness, Loss of Funtion Narrative: 84-year-old male presents from physical therapy with left calf pain, he was sent in to rule out a DVT. He has a history of a cyst in his leg. He is on aspirin and Plavix. He denies history of DVT or PE. He has not had chest pain shortness of breath or hemoptysis. No recent trauma, travel or surgery. He denies any other complaints. He has not suffered any injury. He has no significant swelling. He denies numbness tingling or weakness. He has no back pain. Tetanus Immunization: Unknown Prior similar symptoms: Yes Recent Illness/Hospitalization: Yes <Jose Rock - Last Filed: 02/28/20 13:31> <Hector Guzman - Last Filed: 02/28/20 13:39> Chief Complaint: Lower Extremity Injury Past Medical History Prior records reviewed: Yes Past Medical History: - - Hypertension hyperlipidemia insulin-dependent diabetes mellitus Surgical History: angioplasty, appendectomy, - - Back surgery, lymph nodes in chest and aorta accidentally nicked and had to have chest opened to repair it. Smoking Status: Former smoker - Family History Maternal Family History: Family History (Last Reviewed 02/10/20 @ 18:38 by NEERAJ Jay) Mother CAD (coronary artery disease) Brother CAD (coronary artery disease) Myocardial infarction Daughter Asthma Father Cancer Sister Breast cancer Sister Cardiomyopathy Family History: Reports: Heart Disease, Unknown, - <Jose Rock - Last Filed: 02/28/20 13:31> - Family History Maternal Family History: Family History (Last Reviewed 02/10/20 @ 18:38 by NEERAJ Jay) Mother CAD (coronary artery disease) Brother CAD (coronary artery disease) Myocardial infarction Daughter Asthma Father Cancer Sister Breast cancer Sister Cardiomyopathy <Hector Guzman - Last Filed: 02/28/20 13:39> - Allergies and Home Meds Allergies/Adverse Reactions: Allergies losartan Adverse Reaction (Intermediate, Verified 02/28/20 12:49) Jitters metoprolol Adverse Reaction (Intermediate, Verified 02/28/20 12:49) Jitters pioglitazone HCl [From Actos] Adverse Reaction (Verified 02/28/20 12:49) Upset Stomach Primary Care Physician: Soham Jones III, MD [Primary Care Provider] - 3-5 Days if not improving Review of Systems All systems negative except as indicated General: Denies: Chills, Fever, Sweats Eyes: Denies: Visual changes - bilaterally, Diplopia ENT: Denies: Rhinorrhea, Sore throat Cardiovascular: Denies: Chest pain, Palpitations Respiratory: Denies: Dyspnea, Cough, Dyspnea on exertion Gastrointestinal: Denies: Abdominal pain, Nausea, Vomiting, Diarrhea, Melena, Hematochezia Genitourinary: Denies: Dysuria, Hematuria, Frequency Musculoskeletal: Reports: Extremity Pain. Denies: Back pain, Swelling Skin: Denies: Rash, Wounds Neurological: Denies: Headache, Weakness, Numbness <Jose Rock PA - Last Filed: 02/28/20 13:31> Physical Exam Vital Signs/Narrative: Vital Signs Temp Pulse Resp BP Pulse Ox 02/28/20 12:47 97.2 F L 68 18 114/69 99 Inital Vital Signs reviewed: Yes - Extremity Exam Left Tib Fib: - - Normal inspection of both lower extremities. Normal inspection specifically of the left lower extremity. DP and PT pulse are normal. Sensation normal throughout his left lower extremity. He has normal plantarflexion and dorsiflexion actively and he has normal active range of motion of his knee. He has some tenderness over his calf. No palpable cords there is no redness or warmth swelling signs of bruising or trauma he has no tenderness over his ankle or knee foot or thigh. Femoral pulse normal.. Negative for: Abrasion, Contusion, Deformity, Edema, Hematoma, Limited ROM General: Well nourished, Well developed Head: Normocephalic, Atraumatic Eyes: Perrl, EOMI ENT: No Trauma, Moist Mucous Membranes Neck: Nontender, Full ROM Cardiovascular: Regular rate, Regular rhythm, No murmurs Respiratory: No distress, CTA bilaterally, Chest nontender Abdomen: Soft, Nontender, Nondistended, Normal bowel sounds Back: Nontender Skin: Normal color, No rash Neurological: Alert, Oriented x3, Cranial nerves II-XII grossly intact, Normal Strength, Normal Sensation Psychological: Normal affect <Jose Rock - Last Filed: 02/28/20 13:31> Vital Signs/Narrative: Vital Signs Temp Pulse Resp BP Pulse Ox 02/28/20 12:47 97.2 F L 68 18 114/69 99 <Megan,Hector - Last Filed: 02/28/20 13:39> Diagnostic/Tx/Re-eval - Medical Decision Making Patient presents with pain in his left calf during physical therapy today and was sent in for a rule out DVT. Venous ultrasound was negative for DVT. Patient has normal pulses he is ambulatory no signs of infection he will be discharged to continue his medications at home including his aspirin and Plavix and return for worsening symptoms otherwise he will follow-up with his family doctor next week <Jose Rock - Last Filed: 02/28/20 13:31> - Medical Decision Making I supervised the PA and have performed my own pertinent history and physical. Results and treatment plan were discussed. HPI: Patient complains of left calf pain that began today. He denies any trauma. No fall or MVA. He is going to physical therapy and reports pain worsened while he was ambulating. Describes an aching pain that is 5 out of 10 currently and 7 out of 10 at worst. He denies any numbness distally. Review of systems: General: No fever, chills, cold sweats. Cardiovascular: No chest pain, palpitations. Respiratory: No cough, shortness of breath, dyspnea on exertion. Gastrointestinal: No abdominal pain, nausea, vomiting, diarrhea, melena, or hematochezia. Genitourinary: No dysuria, frequency, hematuria. Skin: No rash. Neuro: No headache, numbness, weakness. PE: Vitals: Stable. Afebrile. General: Well-nourished and well-developed. Head: Normocephalic atraumatic. Neck: Supple, no lymphadenopathy. No JVD. Nontender. Cardiovascular: Regular rate and rhythm. No murmurs. Respiratory: No respiratory distress. Clear to auscultation bilaterally. Abdominal: Soft, nontender, nondistended, normal bowel sounds. No guarding, rebound, or peritoneal signs. Back: Nontender. Extremities: 2+ dorsalis pedis pulse on the left. Moderate tenderness palpation over his calf, no edema. No erythema or warmth to suggest infection. He has no pain with palpation of his knee or ankle. Skin: Normal color, no rash. Neurologic: Alert and oriented ?3. Cranial nerves II through XII are intact. Normal strength and sensation. Psych: Normal affect. Emergency Department course: Lower extremity Doppler was negative. The patient is resting comfortably. Treatment Plan: Patient will be discharged prescription for 10 [place] for severe pain. Follow-up with his primary care physician in 3 to 5 days if not improving. Return to the emergency department for any worsening symptoms. This note was generated with [employer] dictation software. It may contain incorrect words, spelling, and punctuation that were not noted in review of the chart prior to signing. <Hector Guzman - Last Filed: 02/28/20 13:39> ED Disposition <Jose Rock - Last Filed: 02/28/20 13:31> <Hector Guzman - Last Filed: 02/28/20 13:39> - Plan for ED Patient: Disposition: Home or Assisted Living Diagnosis: Pain of left calf, Atherosclerotic heart disease of [place] coronary artery without angina pectoris, CKD (chronic kidney disease) stage 3, GFR 30-59 ml/min, Chronic systolic heart failure, Essential (primary) hypertension, Diabetes, HLD (hyperlipidemia), GERD (gastroesophageal reflux disease), History of coronary artery stent placement Instructions: ED ACHING MUSCLES, ED RICE Prescriptions: Hydrocodone Bitart/Apap 5-325 [[place] 5MG-325MG] 1 tab PO Q6H PRN PRN 3 Days #12 tab PRN Reason: Pain Prescription Printed Referrals: Soham Jones III, MD [Primary Care Provider] - 3-5 Days if not improving
--- NOTE | 2020-02-28 13:36 | ED.VISSUMM ---
- ER Visit Summary Date of Service: 02/28/20 Chief Complaint: [] History of Present Illness: The patient is a 84 M [] Physical Examination: [] Test Results: [] Emergency Department Course and Treatment: [] Treatment Plan: [] Disposition: [] Impression: [] This note was generated with [employer] dictation software. It may contain incorrect words, spelling, and punctuation that were not noted in review of the chart prior to signing ED Disposition - Plan for ED Patient: Disposition: Home or Assisted Living Diagnosis: Pain of left calf, Atherosclerotic heart disease of [place] coronary artery without angina pectoris, CKD (chronic kidney disease) stage 3, GFR 30-59 ml/min, Chronic systolic heart failure, Essential (primary) hypertension, Diabetes, HLD (hyperlipidemia), GERD (gastroesophageal reflux disease), History of coronary artery stent placement Instructions: ED ACHING MUSCLES, ED RICE Prescriptions: Hydrocodone Bitart/Apap 5-325 [[place] 5MG-325MG] 1 tab PO Q6H PRN PRN 3 Days #12 tab PRN Reason: Pain Prescription Printed Referrals: Sohma Jones III, MD [Primary Care Provider] - 3-5 Days if not improving
== END 2020-02-28 13:56 | disposition home or self-care (01) ==
PROVIDERS: Emergency Provider Physician Assistant Medical; PCP Family Medicine
DX: M79.662 Pain in left lower leg (principal); I25.10 Atherosclerotic heart disease of native coronary artery without angina pectoris; E11.22 Type 2 diabetes mellitus with diabetic chronic kidney disease; I13.0 Hypertensive heart and chronic kidney disease with heart failure and stage 1 through stage 4 chronic kidney disease, or unspecified chronic kidney disease; N18.3 Chronic kidney disease, stage 3 (moderate); I50.22 Chronic systolic (congestive) heart failure; E78.5 Hyperlipidemia, unspecified; K21.9 Gastro-esophageal reflux disease without esophagitis; Z95.5 Presence of coronary angioplasty implant and graft; Z79.4 Long term (current) use of insulin; Z79.84 Long term (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 of oral hypoglycemic drugs; Z79.02 Long term (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 of antithrombotics/antiplatelets; Z79.82 Long term (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 of aspirin; Z79.899 Other long term (current) drug therapy; Z87.891 Personal history of nicotine dependence
CPT/HCPCS: 93971; 99282

== ENCOUNTER → 2020-05-20 12:45 | Outpatient (CLI) | payer MEDICARE, SELFPAY ==
--- NOTE | 2020-05-20 13:00 | RAD_ITS ---
STUDY: X-RAY - LEFT ELBOW REASON FOR EXAM: Male, 84 years old. PAIN X1 MONTH S/P MULTIPLE FALLS TECHNIQUE: 3 view(s) of the elbow. COMPARISON: None. FINDINGS: Negative for humeral fracture. These are findings of the medial humeral epicondyle. Normal radius. Minimal enthesophyte of the olecranon. Dorsal soft tissue swelling. RAD/Elbow min 3 Views IMPRESSION: Dorsal soft tissue swelling without underlying fracture or dislocation. Electronically Signed: Susanne Ojeda MD at 20:19 EST , Service support ,
== END ==
PROVIDERS: PCP Family Medicine; Referring Provider Anesthesiology Pain Medicine; Visit Provider Anesthesiology Pain Medicine
DX: M25.522 Pain in left elbow (principal); W19.XXXA Unspecified fall, initial encounter
CPT/HCPCS: 73080

== ENCOUNTER → 2020-05-26 14:51 | Outpatient (CLI) | payer MEDICARE, SELFPAY ==
[2020-05-26 16:29] LABS: AST(SGOT) 32 U/L (15-37); Alanine Aminotransfer ALT/SGPT 21 U/L (16-61); Anion Gap 5 (5-15); BUN 25 mg/dL (7-18); BUN/Creat Ratio 17.7 RATIO (10-20); Calcium,Total 10.2 mg/dL (8.5-10.1); Chloride 100 mmol/L (98-107); Creatinine, Serum 1.41 mg/dL (0.70-1.30); EST Glomerular Filtration Rate 51 mL/min (>60); Est Glom Filt Rate - Afr Amer 62 mL/min (>60); Glucose 128 mg/dL (74-106); Potassium 4.2 mmol/L (3.5-5.1); Sodium Level 136 mmol/L (136-145)
[2020-05-26 16:44] LABS: Hemoglobin A1c 6.2 % (3.8-5.6)
== END ==
PROVIDERS: PCP Family Medicine; Referring Provider Internal Medicine Endocrinology, Diabetes & Metabolism; Visit Provider Internal Medicine Endocrinology, Diabetes & Metabolism
DX: I10 Essential (primary) hypertension (principal); E11.9 Type 2 diabetes mellitus without complications
CPT/HCPCS: 36415; 80048; 83036; 84450; 84460

== ENCOUNTER 2020-07-10 09:13 | Outpatient (RCR) | payer MEDICARE, SELFPAY | END 2020-07-10 23:59 | LOC: IMMUN 09:13 | PROVIDERS: PCP Family Medicine; Visit Provider Family Medicine | DX: Z23 Encounter for immunization (principal) | CPT/HCPCS: 0011A; 0012A; 91301 ==

== ENCOUNTER → 2020-07-21 13:31 | Outpatient (CLI) | payer MEDICARE, SELFPAY ==
[2020-07-21 11:43] VITALS: BMI 40.8
[2020-07-21 14:21] LABS: BNP,B-Type NATRIURETIC PEPTIDE 42.5 pg/mL (0-100)
== END ==
PROVIDERS: PCP Family Medicine; Referring Provider Internal Medicine Cardiovascular Disease; Visit Provider Internal Medicine Cardiovascular Disease
DX: I42.9 Cardiomyopathy, unspecified (principal)
CPT/HCPCS: 36415; 83880

== ENCOUNTER → 2020-09-28 09:52 | Outpatient (CLI) | payer MEDICARE, SELFPAY ==
[2020-07-22 10:45] VITALS: BMI 40.8
[2020-09-28 10:51] LABS: Hemoglobin A1c 7.2 % (3.8-5.6)
[2020-09-28 11:10] LABS: AST(SGOT) 19 U/L (15-37); Alanine Aminotransfer ALT/SGPT 21 U/L (16-61); Anion Gap 7 (5-15); BUN 18 mg/dL (7-18); BUN/Creat Ratio 12.4 RATIO (10-20); Chloride 100 mmol/L (98-107); Creatinine, Serum 1.45 mg/dL (0.70-1.30); EST Glomerular Filtration Rate 49 mL/min (>60); Est Glom Filt Rate - Afr Amer 60 mL/min (>60); Glucose 238 mg/dL (74-106); Potassium 4.2 mmol/L (3.5-5.1); Sodium Level 135 mmol/L (136-145)
== END ==
LOC: MTLAB 09:54 → LAB 09:57
PROVIDERS: PCP Family Medicine; Referring Provider Internal Medicine Endocrinology, Diabetes & Metabolism; Visit Provider Internal Medicine Endocrinology, Diabetes & Metabolism
DX: E11.9 Type 2 diabetes mellitus without complications (principal)
CPT/HCPCS: 36415; 80048; 83036; 84450; 84460

== ENCOUNTER → 2020-10-12 16:14 | Outpatient (CLI) | payer MEDICARE, SELFPAY ==
[2020-10-12 13:17] VITALS: BMI 40.8
--- NOTE | 2020-10-12 16:20 | RAD_ITS ---
INDICATION: pain xiphoid x 3 weeks, no trauma EXAMINATION/TECHNIQUE: X-RAY - XR Sternum Min 2 Views COMPARISON: None. FINDINGS: SOFT TISSUES: No soft tissue swelling or gas. No radiopaque foreign body. BONES: No fracture or subluxation. No sclerotic or destructive changes observed. Median sternotomy wires present. RAD/Sternum min 2 Views IMPRESSION: No acute abnormalities. Electronically Signed: Epifanio Peck MD at 18:16 EDT Tel , Service support ,
== END ==
PROVIDERS: PCP Internal Medicine; Referring Provider Internal Medicine; Visit Provider Internal Medicine
DX: R07.89 Other chest pain (principal)
CPT/HCPCS: 71120

== ENCOUNTER → 2020-10-30 10:21 | Outpatient (CLI) | payer MEDICARE, SELFPAY ==
[2020-10-29 14:21] VITALS: BMI 40.8
--- NOTE | 2020-10-30 10:25 | CT_ITS ---
STUDY: CT BRAIN WITHOUT CONTRAST REASON FOR EXAM: Male, 85 years old. possible new cva, right arm and leg numbess RADIATION DOSAGE (If Supplied By Facility): CTDIvol = ( 44.99 ) mGy, DLP = ( 812.98 ) mGycm TECHNIQUE: Transaxial CT imaging of the brain was performed without administration of intravenous contrast material. Individualized dose optimization techniques were used for this CT. COMPARISON: Comparison is made with prior study 02/09/2020. FINDINGS: Normal soft tissue structures. Normal calvarium. There is mild cerebral atrophy with widening of the extra-axial spaces and ventricular dilatation. There are areas of decreased attenuation within the white matter tracts of the supratentorial brain, consistent with microvascular disease changes. I suspect a new subacute lacunar infarct in the left basal ganglia. Normal brainstem. Normal cerebellum. There is no intracranial hemorrhage. There are no findings of an acute ischemic infarction. Atherosclerotic calcification of the cavernous portions of the internal carotid arteries bilaterally. Normal visualized paranasal sinuses. CT/Brain/Head without Contrast IMPRESSION: Chronic involutional changes of the brain. I suspect a new lacunar infarct in the left basal ganglia. Electronically Signed: Jon Waters MD at 10:56 EDT , Service support ,
--- NOTE | 2020-10-30 10:40 | RAD_ITS ---
STUDY: X-RAY - CERVICAL SPINE REASON FOR EXAM: Male, 85 years old. numbness and tingling and pain right arm/neck TECHNIQUE: 3 view(s) of the cervical spine were obtained. COMPARISON: None FINDINGS: Normal anterior atlantoaxial articulation. Normal odontoid process. There is reversal of the normal cervical lordosis. There is multi-level endplate spondylosis. There is multi-level degenerative disc disease with multilevel disc space narrowing. Normal visualized intervertebral neuroforamina. The soft tissue structures are unremarkable. RAD/Cerv Spine 2 or 3 Views IMPRESSION: Severe diffuse degenerative disc disease with reversal the normal lordotic curvature. Electronically Signed: Devante Dunlap MD at 9:59 EDT Tel , Service support ,
== END ==
PROVIDERS: PCP Internal Medicine; Referring Provider Internal Medicine; Visit Provider Internal Medicine
DX: M54.12 Radiculopathy, cervical region (principal); Z86.73 Personal history of transient ischemic attack (TIA), and cerebral infarction without residual deficits
CPT/HCPCS: 70450; 72040

== ENCOUNTER → 2020-11-18 09:14 | Outpatient (CLI) | payer MEDICARE, SELFPAY ==
[2020-11-17 16:03] VITALS: BMI 40.8
--- NOTE | 2020-11-18 09:20 | RAD_ITS ---
EXAM: XR RIGHT WRIST COMPLETE, 3 OR MORE VIEWS : 1935 CLINICAL INDICATION: WRIST PAIN TECHNIQUE: Frontal, lateral and oblique views of the right wrist. This report was created using [employer] report generation technology. COMPARISON: None. FINDINGS: BONES/JOINTS: Unremarkable. No acute fracture. No subluxation. Normal alignment. Preservation of the joint space. No sclerotic or destructive changes observed. SOFT TISSUES: Unremarkable. No soft tissue swelling or gas. No radiopaque foreign body. RAD/Wrist min 3 Views IMPRESSION: Negative right wrist x-rays. at 2201 Reported and signed by: Adalid Alicia MD Electronically Signed: Adalid Alicia MD at 22:00 EDT Tel , Service support ,
== END ==
PROVIDERS: PCP Internal Medicine; Referring Provider Internal Medicine; Visit Provider Internal Medicine
DX: M25.531 Pain in right wrist (principal)
CPT/HCPCS: 73110

== ENCOUNTER 2020-12-10 11:10 | Emergency (ER) | payer MEDICARE, SELFPAY ==
[2020-11-17 16:03] VITALS: BMI 40.8
[2020-12-10 11:11] VITALS: BP 140/77; PULSE 86; RESP 15; TEMP 35.3; O2SAT 95; BMI 41.1
--- NOTE | 2020-12-10 11:40 | RAD_ITS ---
STUDY: X-RAY CHEST REASON FOR EXAM: Male, 85 years old. SOB TECHNIQUE: COMPARISON: None. FINDINGS: The heart is not enlarged except for heavy markings seen in the medial aspect of the right base.. There is large fixed hiatal hernia. The lung johnson are clear. No pleural effusion or pneumothorax there is tortuosity of the thoracic aorta with calcification of the aortic knob. RAD/Chest 1 View (Portable) IMPRESSION: Heavy markings medial aspect right base. Large fixed hiatal hernia Electronically Signed: Fernandez Null, at 12:06 EDT Tel , Service support ,
--- NOTE | 2020-12-10 11:59 | EX.ED.DYSGE1 ---
HPI History of Present Illness Chief Complaint: Weakness Informant: patient Narrative Narrative: Patient is an 85-year-old male with a past medical history of diabetes, CAD, CKD who presents to the emergency department for a jittery sensation. This is all over his body. Has been present over the past 2 days. He has had these symptoms before in the past. His doctor did put him on a medication for anxiety 1 year ago but this kept him up at night so he discontinued it. He denies any known aggravating or relieving factors. Has not tried anything for it at this time. His only other complaint at this time is shortness of breath. He states he does have chronic shortness of breath but this does feel worse than normal. No associated chest pain or heart palpitations. He does have a mild cough that is nonproductive. He denies any fevers, chills or body aches. He has had occasional nausea but no vomiting. He denies any problems moving his bowels or urinating. Denies any leg swelling or calf pain. [facility] Medical History (Updated 12/10/20 @ 13:[address] Arsenio Hennessy, ) Anemia Appendicitis Atherosclerotic heart disease of [place] coronary artery without angina pectoris Benign prostatic hypertrophy BMI 40.0-44.9, adult Body mass index (BMI) 40.0-44.9, adult BPH (benign prostatic hyperplasia) Chest pain CKD (chronic kidney disease) stage 3, GFR 30-59 ml/min Cough Debility Diabetes mellitus type 2 in obese 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 Dyspnea Essential (primary) hypertension GERD (gastroesophageal reflux disease) GERD (gastroesophageal reflux disease) Hiatal hernia HLD (hyperlipidemia) Hypothyroidism Iron deficiency anemia Nephrolithiasis Nonrheumatic tricuspid (valve) insufficiency Obesity DANYELL (obstructive sleep apnea) Osteoarthritis Palpitations Premature ventricular contractions Right bundle branch block (RBBB) with left anterior fascicular block Right flank pain Shortness of breath Stroke/cerebrovascular accident Syncope and collapse Upper respiratory infection Vocal cord dysfunction Home Medications metformin 1,000 mg PO BIDCM 01/05/14 [History Last Taken 02/07/20 02:00] pravastatin 20 mg PO DAILY 01/05/14 [History Last Taken 02/09/20] cholecalciferol (vitamin D3) 5,000 unit PO DAILY 06/29/15 [History Last Taken 02/10/20] finasteride 5 mg PO DAILY 06/29/15 [History Last Taken 02/07/20 07:00] pantoprazole 40 mg PO DAILY 06/29/15 [History Last Taken 02/07/20 08:00] aspirin 81 mg PO DAILY 07/24/15 [History Last Taken 02/07/20 07:00] clopidogrel 75 mg PO DAILY 02/12/20 [History Last Taken Unknown] acetaminophen 1,000 mg PO Q6H PRN PRN tab 02/19/20 [Rx Last Taken Unknown] melatonin 10 mg PO QHS tab 02/19/20 [Rx Last Taken Unknown] furosemide 40 mg tablet 40 mg PO DAILY #90 tab 02/26/20 [Rx Last Taken Unknown] isosorbide mononitrate 30 mg tablet,extended release 24 hr 30 mg PO DAILY #90 tab 04/28/20 [Rx Last Taken Unknown] carbidopa 10 mg-levodopa 100 mg tablet 1 tab PO BID 07/21/20 [History Last Taken Unknown] citalopram 10 mg tablet 10 mg PO TID tab 07/21/20 [History Last Taken Unknown] losartan 100 mg tablet 100 mg PO DAILY 07/21/20 [History Last Taken Unknown] amlodipine 5 mg tablet 5 mg PO DAILY #90 tablet 10/12/20 [Rx Last Taken Unknown] insulin human U-100 NPH-regulr 70-30 mix 100 unit/mL subcutaneous susp 50 unit SC BREAKFAST 10/12/20 [History Last Taken Unknown] Handi cap Placard #1 ea 10/14/20 [Rx Last Taken Unknown] arm brace #1 ea 11/19/20 [Rx Last Taken Unknown] levothyroxine 50 mcg tablet 50 mcg PO DAILY #90 tab 11/19/20 [Rx Last Taken Unknown] Allergy/AdvReac Type Severity Reaction Status Date / Time losartan AdvReac Intermediate Jitters Verified 12/10/20 11:13 metoprolol AdvReac Intermediate Jitters Verified 12/10/20 11:13 pioglitazone HCl [From Actos] AdvReac Upset Verified 12/10/20 11:13 Stomach Family History Mother CAD (coronary artery disease) Brother CAD (coronary artery disease) Myocardial infarction Daughter Asthma Father Cancer bone cancer Sister Breast cancer Sister Cardiomyopathy Surgical History History of appendectomy History of back surgery History of coronary artery stent placement (07/01/15) History of left heart catheterization History of lymph node biopsy History of right and left heart catheterization (07/02/18) Social History Smoking Status: Former smoker pack-years: 2 alcohol intake: never substance use type: does not use caffeine: Yes Type: coffee Number of servings: 2 what type of physical activity do you participate in: none seatbelt use: always do you feel safe at home: Yes ROS ROS ED Constitutional Constitutional ED: Denies chills or fever(s) Eyes Eyes: Denies change in vision ENT ENT ED: Denies epistaxis or rhinorrhea Cardiovascular Cardiovascular: Denies chest pain or palpitations Respiratory/Chest Respiratory/Chest: Reports cough and dyspnea Gastrointestinal Gastrointestinal: Denies abdominal pain, diarrhea, nausea or vomiting Genitourinary Genitourinary ED: Denies dysuria, hematuria or urinary frequency Musculoskeletal Musculoskeletal: Denies back pain or neck pain Integumentary Denies rash Neurologic Neurologic: Denies dizziness, headache(s) or weakness Psychiatric Psychiatric: Reports anxiety EXAM Physical Exam Const Vital Signs: 12/10/20 11:11 12/10/20 11:19 12/10/20 13:28 Temperature 95.6 F L 97.5 F L Temperature Source Temporal Temporal Pulse Rate 86 73 Respiratory Rate 15 21 H Respiratory Effort Normal Non-Labored Respiratory Pattern Normal Blood Pressure 140/77 H 114/72 Blood Pressure Mean 98 86 Pulse Ox 95 92 Oxygen Delivery Method Room Air Room Air Positive well nourished and well developed General Appearance ED: well developed and NAD HEENT Reports normocephalic, head/scalp atraumatic and moist mucous membranes Eyes PERRL and EOMs intact bilaterally Neck supple Chest Wall inspection of chest normal Resp normal respiratory effort and clear to auscultation bilaterally Auscultation: Negative for rales, rhonchi or wheezes Cardio regular rate, regular rhythm and no murmurs GI normal to inspection, nondistended, normoactive bowel sounds and non-tender Palpation: soft; Negative for guarding or rebound tenderness present Back/Spine no CVA tenderness Extremity normal to inspection General Extremety ED: Negative for edema or tenderness General Extremity: Negative for edema Neuro CN's II-XII intact bilaterally and no sensory deficits noted Sensorium / Orientation: alert Motor Exam: strength 5/5 throughout Psych mental status grossly normal Skin no rashes or lesions noted MDM MDM MDM Narrative Medical decision making narrative: Patient presents to the ED for jittery sensation. He does feel anxious. He has had this issue before over the past year. His only other complaint this time is shortness of breath. Upon arrival to the emergency department his vital signs are within normal limits. He is in no acute distress. Will check basic lab work to make sure that there is no underlying acute life-threatening issue causing his jitteriness. Patient's lab work-up showed a mildly low hemoglobin, mildly elevated blood glucose. His TSH is within normal limits. Otherwise the rest lab work did not reveal any significant acute abnormality. He has been stable throughout ED stay. I have very low concern for thromboembolism, ACS, aortic catastrophe. I recommend he follow-up with his PCP and get restarted on his anxiety medications. Return precautions are reviewed with him including any worsening shortness of breath, chest pain. He understands and is agreeable this plan. Discharged home in stable condition. All questions were answered. Lab Data Labs: Laboratory Results - last 24 hr 12/10/20 12/10/20 12:00 12:00 WBC 5.2 RBC 4.52 L Hgb 12.6 L Hct 39.7 L MCV 87.8 MCH 27.9 MCHC 31.7 L RDW Std Deviation 47.4 H RDW Coeff of Perla 14.8 H Plt Count 240 MPV 9.3 Immature Gran % (Auto) 1.000 H Neut % (Auto) 64.0 Lymph % (Auto) 21.2 [place] % (Auto) 9.5 Eos % (Auto) 3.5 Baso % (Auto) 0.8 Absolute Neuts (auto) 3.3 Absolute Lymphs (auto) 1.09 Nucleated RBC % 0 Sodium 136 Potassium 4.2 Chloride 99 Carbon Dioxide 28.0 Anion Gap 9 BUN 16 Creatinine 1.41 H Estim Creat Clear Calc 33.24 Est GFR (MDRD) Af Amer 62 Est GFR (MDRD) Non-Af 51 L BUN/Creatinine Ratio 11.3 Glucose 189 H Calcium 9.9 Magnesium 1.7 Troponin I High Sens 12.1 TSH 2.46 Radiography Chest X-Ray - ED: 1 View (Single view portable x-ray interpreted by myself. There is some patchiness in the right lower lobe but no significant acute cardiac abnormality. Normal mediastinum. Sternotomy wires present. Comparing this to previous chest x-ray there is no significant acute abnormality.) Diagnostic Testing: Radiology Impression Chest X-Ray 12/10/20 11:40 IMPRESSION: Heavy markings medial aspect right base. Large fixed hiatal hernia Electronically Signed: Fernandez Null, at 12:06 EDT Tel , Service support , Discharge Plan Triage Chief Complaint: Weakness ED Provider: Arsenio Hennessy Dx/Rx/DC Orders Clinical Impression: Anxiousness Instructions: ED Anxiety Reaction Prescriptions: No Action citalopram 10 mg tablet 10 mg PO TID RF: 0 losartan 100 mg tablet 100 mg PO DAILY RF: 0 carbidopa-levodopa 10-100 mg tablet 1 tab PO BID RF: 0 metformin 500 MG tablet 1,000 mg PO BIDCM RF: 0 pravastatin 20 MG tablet 20 mg PO DAILY RF: 0 pantoprazole 40 MG tablet 40 mg PO DAILY RF: 0 cholecalciferol (vitamin D3) 5,000 UNIT capsule 5,000 unit PO DAILY RF: 0 finasteride 5 MG tablet 5 mg PO DAILY RF: 0 insulin NPH and regular human 100 unit/mL (70-30) suspension 50 unit SC BREAKFAST RF: 0 aspirin 81 MG tablet,delayed release (DR/EC) 81 mg PO DAILY RF: 0 clopidogrel 75 MG tablet 75 mg PO DAILY RF: 0 acetaminophen 500 MG tablet 1,000 mg PO Q6H PRN PRN (Reason: Pain Score 1-3/10) RF: 0 melatonin 10 MG tablet 10 mg PO QHS RF: 0 furosemide 40 mg tablet 40 mg PO DAILY Qty: 90 RF: 3 isosorbide mononitrate 30 mg tablet extended release 24 hr 30 mg PO DAILY Qty: 90 RF: 3 amlodipine 5 mg tablet 5 mg PO DAILY Qty: 90 RF: 3 (DME) Handi cap Placard See Rx Instructions .Route .MEDSUPPLY Qty: 1 RF: 0 levothyroxine 50 mcg tablet 50 mcg PO DAILY Qty: 90 RF: 0 (DME) Wrist Brace Misc See Rx Instructions .ROUTE .MEDSUPPLY Qty: 1 RF: 0 Primary Care Provider: Marie Maciel Referrals: Marie Maciel MD [Primary Care Provider] - As soon as possible Disposition Disposition: Home, Self Care Discharge Date/Time: 12/10/20 13:30
[2020-12-10 12:13] LABS: Absolute Lymphocyte Count 1.09 X10^3/uL (0.83-4.51); Absolute Neutrophil Count 3.3 X10^3/uL (2.0-7.7); Basophil# 0.04 X10^3/uL; Basophil% 0.8 % (0-1); Eosinophil# 0.18 X10^3/uL; Eosinophils% 3.5 % (0-5); Hematocrit 39.7 % (40-54); Hemoglobin 12.6 g/dL (13.0-16.5); Lymphocyte # 1.09 X10^3/ul (0.83-4.51); Lymphocyte % 21.2 % (19-41); Mean Corp Hgb Conc 31.7 g/dL (32-36); Mean Corpuscular Hgb 27.9 pg (27.0-32.0); Mean Corpuscular Volume 87.8 fL (80-94); Mean Platelet Vol. 9.3 fl (6.2-12.0); Monocyte# 0.49 X10^3/uL; Monocyte% 9.5 % (0-10); NRBC Flagged by Analyzer 0 % (0-5); Platelet Count 240 K/mm3 (150-450); RBC Distribution Width CV 14.8 % (11.6-14.6); RBC Distribution Width SD 47.4 fl (35.1-43.9); Red Blood Count 4.52 M/mm3 (4.6-6.2); White Blood Count 5.2 K/mm3 (4.4-11.0)
[2020-12-10 12:38] LABS: Anion Gap 9 (5-15); BUN 16 mg/dL (7-18); BUN/Creat Ratio 11.3 RATIO (10-20); Calcium,Total 9.9 mg/dL (8.5-10.1); Chloride 99 mmol/L (98-107); Creatinine, Serum 1.41 mg/dL (0.70-1.30); EST Glomerular Filtration Rate 51 mL/min (>60); Est Glom Filt Rate - Afr Amer 62 mL/min (>60); Estimated Creatinine Clearance 33.24 ml/min; Glucose 189 mg/dL (74-106); Magnesium 1.7 mg/dL (1.6-2.6); Potassium 4.2 mmol/L (3.5-5.1); Sodium Level 136 mmol/L (136-145); Thyroid Stim Hormone (TSH) 2.46 uIU/mL (0.358-3.74); Troponin-I HS 12.1 pg/mL (3.0-78.5)
[2020-12-10 13:28] VITALS: BP 114/72; PULSE 73; RESP 21; TEMP 36.4; O2SAT 92
== END 2020-12-10 13:30 | disposition home or self-care (01) ==
PROVIDERS: Emergency Provider Emergency Medicine; PCP Internal Medicine
DX: F41.1 Generalized anxiety disorder (principal); R05 Cough; E03.9 Hypothyroidism, unspecified; E11.22 Type 2 diabetes mellitus with diabetic chronic kidney disease; E66.9 Obesity, unspecified; E78.5 Hyperlipidemia, unspecified; G47.33 Obstructive sleep apnea (adult) (pediatric); I12.9 Hypertensive chronic kidney disease with stage 1 through stage 4 chronic kidney disease, or unspecified chronic kidney disease; I25.10 Atherosclerotic heart disease of native coronary artery without angina pectoris; I42.0 Dilated cardiomyopathy; K21.9 Gastro-esophageal reflux disease without esophagitis; M19.90 Unspecified osteoarthritis, unspecified site; N18.30 Chronic kidney disease, stage 3 unspecified; I36.1 Nonrheumatic tricuspid (valve) insufficiency; N40.0 Benign prostatic hyperplasia without lower urinary tract symptoms; Z68.41 Body mass index [BMI] 40.0-44.9, adult; Z86.2 Personal history of diseases of the blood and blood-forming organs and certain disorders involving the immune mechanism; Z86.73 Personal history of transient ischemic attack (TIA), and cerebral infarction without residual deficits; Z87.19 Personal history of other diseases of the digestive system; Z87.442 Personal history of urinary calculi; Z79.4 Long term (current) use of insulin; Z79.82 Long term (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 of aspirin; Z79.899 Other long term (current) drug therapy; Z87.891 Personal history of nicotine dependence
CPT/HCPCS: 71045; 80048; 83735; 84443; 84484; 85025; 99284; A4216

== ENCOUNTER → 2020-12-28 16:07 | Outpatient (CLI) | payer MEDICARE, SELFPAY ==
[2020-12-11 11:11] VITALS: BMI 40.6
--- NOTE | 2020-12-28 16:07 | MRI_ITS ---
STUDY: MRI BRAIN WITH AND WITHOUT CONTRAST REASON FOR EXAM: Male, 85 years old. CVA L sided weakness TECHNIQUE: Standardized multiplanar fat and water weighted pulse sequences were obtained. iv dotarem 20 cc was administered for the contrast portion of the examination. COMPARISON: CT of the brain 10/30/2020 FINDINGS: Normal size of the ventricles and extra-axial spaces for the patient''s age. Minor periventricular white matter without mass effect or restricted diffusion.. Minor chronic ischemic changes in left cerebellar hemisphere Normal bilateral basal ganglia. Normal thalami. There is no extra-axial fluid accumulation. Normal flow voids within the major intracranial circulation suggesting patency by spin echo criteria. Normal venous enhancement. There is no enhancing intra-axial or extra-axial abnormality. Normal sella turcica, pituitary gland, infundibular stalk, optic chiasm and hypothalamus. Normal tectal plate and pineal gland. Normal midbrain, naomi and medulla. Normal basal cisterns. Normal bilateral temporal bones. Normal bilateral internal auditory canals. Postsurgical changes of the orbits.. Minor mucosal thickening of the right ethmoid air cells. Normal calvarium and skull base. Normal visualized soft tissue structures. Normal visualized upper cervical spine. MRI/Brain W/WO Contrast IMPRESSION: Minor periventricular white matter ischemic changes and chronic ischemic changes in left cerebellar hemisphere. No evidence for acute infarct. No enhancing lesions following contrast administration Electronically Signed: Geo Simoen MD at 18:19 EDT , Service support ,
== END ==
PROVIDERS: PCP Internal Medicine; Referring Provider Psychiatry & Neurology Neurology; Visit Provider Psychiatry & Neurology Neurology
DX: Z86.73 Personal history of transient ischemic attack (TIA), and cerebral infarction without residual deficits (principal)
CPT/HCPCS: 70553; A9575

== ENCOUNTER → 2020-12-31 09:57 | Outpatient (CLI) | payer MEDICARE, SELFPAY ==
[2020-12-11 11:11] VITALS: BMI 40.6
--- NOTE | 2020-12-31 10:02 | EKG12_ITS ---
Test Reason : ROUTINE Blood Pressure : / mmHG Vent. Rate : 087 BPM Atrial Rate : 087 BPM P-R Int : 142 ms QRS Dur : 126 ms QT Int : 384 ms P-R-T Axes : 068 -63 -33 degrees QTc Int : 462 ms Normal sinus rhythm Right bundle branch block Left anterior fascicular block Bifascicular block Abnormal ECG Confirmed by ABIMAEL GUTIÉRREZ, BRAXTON ([id number]), purchasing expeditor ONDINA LE ([id number]) on 01/01/2021 9:28:29 AM Referred By: Rich Padgett Confirmed By:VINCENT VARGHESE MD
--- NOTE | 2020-12-31 10:02 | CDU_ITS ---
Reason For Study: CVA Rt. Velocities/BP Lt. Velocities/BP Prox CCA 82.5/12.1 cm/sec. Prox CCA 92.2/12.0 cm/sec. Mid CCA 71.2/15.1 cm/sec. Mid CCA 91.8/12.7 cm/sec. Dist CCA 71.2/12.5 cm/sec. Dist CCA 80.9/9.4 cm/sec. Prox ICA 72.9/14.2 cm/sec. Prox ICA 48.2/9.8 cm/sec. Mid ICA 78.1/12.9 cm/sec. Mid ICA 57.0/14.2 cm/sec. Dist ICA 103.8/17.7 cm/sec. Dist ICA 74.6/18.6 cm/sec. Rt. ICA/CCA = 103.8/82.5=1.3. Lt. ICA/CCA = 74.6/92.2=0.8. Prox ECA 73.8/13.8 cm/sec. Prox ECA 69.9/18.2 cm/sec. Rt. Vert. 29.0/7.2 cm/sec. Lt. Vert. 47.2/12.0 cm/sec. Right Extracranial There is heterogeneous, irregular atherosclerotic plaque noted in the right common carotid artery. There is intimal thickening but no significant atherosclerotic plaque noted in the right internal carotid artery. The tortuous nature of the right internal carotid artery may result in flow velocities overestimating the degree of stenosis. There is homogeneous, smooth atherosclerotic plaque noted in the right external carotid artery. Antegrade flow is noted in the right vertebral artery. Left Extracranial There is homogeneous, smooth atherosclerotic plaque noted in the left common carotid artery. There is intimal thickening but no significant atherosclerotic plaque noted in the left internal carotid artery. There is homogeneous, smooth atherosclerotic plaque noted in the left external carotid artery. Antegrade flow is noted in the left vertebral artery. Procedure Carotid Duplex 70072. This is a Carotid Duplex examination using B-mode, color flow and specral Doppler. The exam was diagnostic. Exam performed in department. VL/Carotid Duplex Ultrasound Interpretation Summary Minimal plaque at the proximal right internal carotid artery with less than 50% stenosis Less than 50% stenosis right external carotid artery Intimal thickening at the proximal left internal carotid artery with less than 50% stenosis Less than 50% stenosis left external carotid artery Patent and antegrade vertebral arteries bilaterally Ordering Physician: Rich Padgett Referring Physician: Marie Maciel Performed By: Alexsandra Shirley RDCS, RVT
== END ==
PROVIDERS: PCP Internal Medicine; Referring Provider Psychiatry & Neurology Neurology; Visit Provider Psychiatry & Neurology Neurology
DX: Z86.73 Personal history of transient ischemic attack (TIA), and cerebral infarction without residual deficits (principal); E11.9 Type 2 diabetes mellitus without complications
CPT/HCPCS: 93005; 93880

== ENCOUNTER → 2021-01-08 10:42 | Outpatient (CLI) | payer MEDICARE, SELFPAY ==
[2020-12-11 11:11] VITALS: BMI 40.6
[2021-01-08 11:19] LABS: Absolute Lymphocyte Count 1.23 X10^3/uL (0.83-4.51); Absolute Neutrophil Count 2.9 X10^3/uL (2.0-7.7); Basophil# 0.03 X10^3/uL; Basophil% 0.6 % (0-1); Eosinophil# 0.17 X10^3/uL; Eosinophils% 3.5 % (0-5); Hematocrit 38.9 % (40-54); Hemoglobin 12.1 g/dL (13.0-16.5); Lymphocyte # 1.23 X10^3/ul (0.83-4.51); Lymphocyte % 25.3 % (19-41); Mean Corp Hgb Conc 31.1 g/dL (32-36); Mean Corpuscular Hgb 27.8 pg (27.0-32.0); Mean Corpuscular Volume 89.4 fL (80-94); Mean Platelet Vol. 9.4 fl (6.2-12.0); Monocyte# 0.47 X10^3/uL; Monocyte% 9.7 % (0-10); NRBC Flagged by Analyzer 0 % (0-5); Neutrophil # 2.93 X10^3/uL (2.7-7.7); Neutrophil % 60.1 % (47-70); Platelet Count 242 K/mm3 (150-450); RBC Distribution Width CV 15.1 % (11.6-14.6); RBC Distribution Width SD 49.4 fl (35.1-43.9); Red Blood Count 4.35 M/mm3 (4.6-6.2); White Blood Count 4.9 K/mm3 (4.4-11.0)
[2021-01-08 11:37] LABS: Hemoglobin A1c 7.6 % (3.8-5.6)
[2021-01-08 12:06] LABS: ALB/GLOB Ratio 1.3 RATIO (0.9-2.4); AST(SGOT) 30 U/L (15-37); Alanine Aminotransfer ALT/SGPT 37 U/L (16-61); Albumin, Serum 3.9 g/dL (3.2-5.0); Alkaline Phosphatase 34 U/L (45-117); Anion Gap 7 (5-15); BUN 19 mg/dL (7-18); BUN/Creat Ratio 14.5 RATIO (10-20); Calcium,Total 9.2 mg/dL (8.5-10.1); Chloride 101 mmol/L (98-107); Cholesterol 173 mg/dL (200); Creatinine, Serum 1.31 mg/dL (0.70-1.30); EST Glomerular Filtration Rate 56 mL/min (>60); Est Glom Filt Rate - Afr Amer 67 mL/min (>60); Glucose 104 mg/dL (74-106); High Density Lipoprotein 40 mg/dL; PSA,Total- Diagnostic 1.21 ng/mL (0.0-4.0); Protein, Total 6.9 g/dL (6.4-8.2); Sodium Level 138 mmol/L (136-145); Thyroid Stim Hormone (TSH) 2.33 uIU/mL (0.358-3.74); Triglycerides 219 mg/dL; Very Low Density Lipoprotein 44 mg/dL (5-40)
[2021-01-08 14:11] LABS: Vitamin B12 183 pg/mL (211-911)
[2021-01-08 14:22] LABS: Vitamin D,25 Hydroxy 51.5 ng/mL
[2021-01-09 20:07] LABS: Free Kappa Light Chains 23.1 mg/L (3.3-19.4); Free Lambda Light Chains 13.1 mg/L (5.7-26.3)
== END ==
PROVIDERS: PCP Internal Medicine; Referring Provider Psychiatry & Neurology Neurology; Visit Provider Psychiatry & Neurology Neurology
DX: E78.5 Hyperlipidemia, unspecified (principal); E55.9 Vitamin D deficiency, unspecified; E66.01 Morbid (severe) obesity due to excess calories; G47.33 Obstructive sleep apnea (adult) (pediatric); I10 Essential (primary) hypertension; Z68.41 Body mass index [BMI] 40.0-44.9, adult; I25.10 Atherosclerotic heart disease of native coronary artery without angina pectoris; N13.8 Other obstructive and reflux uropathy; N40.1 Benign prostatic hyperplasia with lower urinary tract symptoms; I67.9 Cerebrovascular disease, unspecified; E11.42 Type 2 diabetes mellitus with diabetic polyneuropathy
CPT/HCPCS: 36415; 80053; 80061; 82306; 82607; 82746; 83036; 83883; 84153; 84443; 85025

== ENCOUNTER → 2021-01-18 14:05 | Outpatient (CLI) | payer MEDICARE, SELFPAY ==
[2021-01-18 13:35] VITALS: BMI 40.6
[2021-01-21 16:08] LABS: Albumin 3.8 g/dL (2.9-4.4); Alpha-1-Globulins 0.2 g/dL (0.0-0.4); Alpha-2-Globulins 0.8 g/dL (0.4-1.0); Gamma Globulin 0.7 g/dL (0.4-1.8); Immunoglobulin A 202 mg/dL (61-437); Immunoglobulin G 781 mg/dL (603-1613); Immunoglobulin M 35 mg/dL (15-143); PROEL- TOTAL PROTEIN 6.6 g/dL (6.0-8.5)
== END ==
PROVIDERS: PCP Internal Medicine; Referring Provider Psychiatry & Neurology Neurology; Visit Provider Psychiatry & Neurology Neurology
DX: G62.9 Polyneuropathy, unspecified (principal)
CPT/HCPCS: 36415; 82784; 84165; 86334; 86335

== ENCOUNTER → 2021-03-15 16:40 | Outpatient (CLI) | payer MEDICARE, SELFPAY ==
--- NOTE | 2021-03-15 16:45 | RAD_ITS ---
STUDY: X-RAY CHEST REASON FOR EXAM: Male, 85 years old. CHEST PAIN covid 19, possible pneumonia TECHNIQUE: XR Chest 2 Views COMPARISON: 6.24.21 FINDINGS: There is no pneumothorax. There are multiple median sternotomy wires. Resection of the left ribs. Left pleural thickening. Healed right rib fractures. Lucent area along the right lung may represent a skinfold. However it is difficult to exclude a pneumothorax. CT chest can better evaluate. Normal size heart. Normal mediastinum and connie. Normal visualized pulmonary arteries. There is atherosclerotic calcification of the aortic arch with tortuosity. There are diffuse degenerative changes of the visualized thoracic spine. There is degenerative osteoarthritis of the bilateral shoulders. There is a hiatal hernia. RAD/Chest PA and Lateral IMPRESSION: Lucent area along the right lung may represent a skinfold. However it is difficult to exclude a pneumothorax. CT chest can better evaluate. Electronically Signed: Mark Cadena MD at 17:02 EDT , Service support ,
== END ==
PROVIDERS: PCP Internal Medicine; Referring Provider Internal Medicine; Visit Provider Internal Medicine
DX: U07.1 COVID-19 (principal)
CPT/HCPCS: 71046

== ENCOUNTER 2021-03-17 13:46 | Outpatient (CLI) | payer MEDICARE, SELFPAY ==
[2021-03-17 14:00] VITALS: BP 150/69; PULSE 95; RESP 18; TEMP 36.8; O2SAT 95; BMI 41.1
[2021-03-17] MEDS: 0.9% Saline Lock 10 ML Syringe IV (14:02)
[2021-03-17 14:45] VITALS: BP 134/60; PULSE 84; RESP 16; TEMP 37.2; O2SAT 96
[2021-03-17 15:41] VITALS: BP 135/65; PULSE 82; RESP 16; TEMP 37.5; O2SAT 95
== END 2021-03-17 15:43 | disposition home or self-care (01) ==
LOC: MS3OUT 13:48 → MS3 13:49
PROVIDERS: PCP Internal Medicine; Referring Provider Nurse Practitioner Adult Health; Visit Provider Nurse Practitioner Adult Health
DX: Z23 Encounter for immunization (principal); U07.1 COVID-19
CPT/HCPCS: J7050; M0243; A4216; Q0244

== ENCOUNTER 2021-04-06 18:25 | Emergency (ER) | payer MEDICARE, SELFPAY ==
[2021-04-06 18:29] VITALS: BP 145/81; PULSE 90; RESP 18; TEMP 36.7; O2SAT 97; BMI 41.0
[2021-04-06 18:34] VITALS: BMI 41.0
[2021-04-06 18:35] LABS: Bedside Glucose 182 mg/dL (70-110)
--- NOTE | 2021-04-06 18:54 | CT_ITS ---
STUDY: CT BRAIN WITHOUT CONTRAST REASON FOR EXAM: Male, 85 years old. Weakness RADIATION DOSAGE (If Supplied By Facility): CTDIvol = ( 44.99 ) mGy, DLP = ( 829.85 ) mGycm TECHNIQUE: Transaxial CT imaging of the brain was performed without administration of intravenous contrast material. Individualized dose optimization techniques were used for this CT. COMPARISON: MRI December 28, 2020 FINDINGS: Normal soft tissue structures. Normal calvarium. There is mild cerebral atrophy with widening of the extra-axial spaces and ventricular dilatation. Normal white matter tracts of the cerebral hemispheres. Lacunar infarct of the left basal ganglia. Normal brainstem. Normal cerebellum. There is no intracranial hemorrhage. There are no findings of an acute ischemic infarction. Normal visualized paranasal sinuses. CT/Brain/Head without Contrast IMPRESSION: Chronic involutional changes of the brain. Electronically Signed: Aldo Darling MD at 20:19 EDT , Service support ,
--- NOTE | 2021-04-06 18:54 | CT_ITS ---
STUDY: CT CERVICAL SPINE WITHOUT CONTRAST REASON FOR EXAM: Male, 85 years old. Cervical radiculopathy RADIATION DOSAGE (If Supplied By Facility): CTDIvol = ( 25.49 ) mGy, DLP = ( 539.48 ) mGycm TECHNIQUE: High resolution transaxial imaging was performed without contrast material. Sagittal and coronal images were reconstructed. Individualized dose optimization techniques were used for this CT. COMPARISON: None FINDINGS: Normal craniovertebral junction. Normal anterior atlantoaxial articulation. Normal odontoid process. There is reversal of the normal cervical lordosis. There is no acute fracture. There is demineralization of the vertebral bodies and posterior osseous elements. C2-3: Normal endplates. Normal disc height and morphology. Mild facet spurring. Normal central canal and intervertebral neuroforamina. C3-4: Disc space narrowing with endplate changes. Disc bulge and spurring. Facet spurring. No canal stenosis. Mild foraminal narrowing. C4-5: Disc space narrowing. Disc bulge and spurring. Facet spurring. No canal stenosis. Left foraminal narrowing. C5-6: Disc space narrowing. Disc bulge and spurring to the left. Facet spurring. Moderate canal stenosis. Left greater than right foraminal narrowing C6-7: Disc space narrowing. Disc bulge and spurring. Facet spurring. No canal stenosis. Right foraminal narrowing. C7-T1: Normal endplates. Normal disc height and morphology. Facet spurring. Normal central canal and intervertebral neuroforamina. Normal visualized soft tissue structures. CT/Spine Cervical without Contras IMPRESSION: Multilevel degenerative changes, as described above. Electronically Signed: Aldo Darling MD at 20:25 EDT , Service support ,
--- NOTE | 2021-04-06 18:54 | RAD_ITS ---
STUDY: X-RAY CHEST REASON FOR EXAM: Male, 85 years old. Weakness TECHNIQUE: Single frontal view of the chest. COMPARISON: March 15, 2021 FINDINGS: There are monitoring devices. There is left mid lung scarring or atelectasis with focal pleural thickening. There is no demonstrated pleural effusion or pneumothorax. Sternal cerclage wires are present from a prior sternotomy. There is cardiac enlargement. Normal mediastinum and connie. Normal visualized pulmonary arteries. There is atherosclerotic calcification of the aortic arch with tortuosity. There is demineralization of the osseous structures. Normal visualized ribs, clavicles, and shoulders. There is no demonstrated abnormality of the visualized soft tissue structures of the upper abdomen. RAD/Chest 1 View (Portable) IMPRESSION: Degenerative changes, as described above. No demonstrated acute cardiopulmonary process. Electronically Signed: Aldo Darling MD at 20:36 EDT , Service support ,
--- NOTE | 2021-04-06 18:55 | EKG12_ITS ---
Test Reason : DYSRHYTHMIA Blood Pressure : / mmHG Vent. Rate : 084 BPM Atrial Rate : 084 BPM P-R Int : 146 ms QRS Dur : 128 ms QT Int : 396 ms P-R-T Axes : 043 -52 072 degrees QTc Int : 467 ms Normal sinus rhythm Right bundle branch block Left anterior fascicular block Bifascicular block Abnormal ECG Confirmed by ABIMAEL GUTIÉRREZ, BRAXTON ([id number]), international editorial producer ONDINA LE ([id number]) on 04/08/2021 1:44:49 P M Referred By: SARA Confirmed By:VINCENT VARGHESE MD
--- NOTE | 2021-04-06 18:57 | NURSING ---
nih 0. NO STROKE ALERT AT THIS TIME PER DR. WESTBROOK
[2021-04-06 19:06] LABS: Absolute Lymphocyte Count 1.12 X10^3/uL (0.83-4.51); Absolute Neutrophil Count 2.4 X10^3/uL (2.0-7.7); Basophil# 0.03 X10^3/uL; Basophil% 0.7 % (0-1); Eosinophil# 0.24 X10^3/uL; Eosinophils% 5.6 % (0-5); Hematocrit 38.1 % (40-54); Hemoglobin 11.9 g/dL (13.0-16.5); Lymphocyte # 1.12 X10^3/ul (0.83-4.51); Lymphocyte % 26.4 % (19-41); Mean Corp Hgb Conc 31.2 g/dL (32-36); Mean Corpuscular Hgb 27.9 pg (27.0-32.0); Mean Corpuscular Volume 89.2 fL (80-94); Mean Platelet Vol. 9.6 fl (6.2-12.0); Monocyte# 0.39 X10^3/uL; Monocyte% 9.2 % (0-10); NRBC Flagged by Analyzer 0 % (0-5); Neutrophil # 2.43 X10^3/uL (2.7-7.7); Neutrophil % 57.2 % (47-70); Platelet Count 226 K/mm3 (150-450); RBC Distribution Width CV 15.6 % (11.6-14.6); RBC Distribution Width SD 50.3 fl (35.1-43.9); Red Blood Count 4.27 M/mm3 (4.6-6.2); White Blood Count 4.3 K/mm3 (4.4-11.0)
[2021-04-06 19:20] LABS: Anion Gap 11 (5-15); BUN 14 mg/dL (7-18); Calcium,Total 9.5 mg/dL (8.5-10.1); Chloride 102 mmol/L (98-107); EST Glomerular Filtration Rate 51 mL/min (>60); Est Glom Filt Rate - Afr Amer 62 mL/min (>60); Estimated Creatinine Clearance 33.48 ml/min; Glucose 182 mg/dL (74-106); Sodium Level 138 mmol/L (136-145); Troponin-I HS 14 pg/mL (3.0-78.0)
[2021-04-06 19:30] VITALS: BP 103/63; PULSE 81; RESP 24; O2SAT 94
[2021-04-06 21:05] VITALS: BP 119/91; PULSE 75; RESP 20; O2SAT 94
[2021-04-06 21:24] VITALS: BP 123/73; PULSE 80; RESP 26; O2SAT 93
[2021-04-06 21:48] VITALS: BP 148/98; PULSE 77; RESP 22; O2SAT 94
--- NOTE | 2021-04-06 22:30 | EDS_ITS ---
HPI History of Present Illness Chief Complaint: Neuro S/Sx Narrative Narrative: Patient is a 85-year-old male who states last night he noticed some right arm pain and weakness. He states he went to bed and had noticed some persistent symptoms throughout the day. He denies any recent trauma prior to the pain beginning. He states that he does have a remote history of stroke and was concerned that with his pain and weakness he could be having another stroke and therefore comes in for evaluation. [facility] Medical History Anemia Appendicitis Atherosclerotic heart disease of [place] coronary artery without angina pectoris Benign prostatic hypertrophy BMI 40.0-44.9, adult Body mass index (BMI) 40.0-44.9, adult BPH (benign prostatic hyperplasia) Chest pain CKD (chronic kidney disease) stage 3, GFR 30-59 ml/min Cough Debility Diabetes mellitus type 2 in obese 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 Dyspnea Essential (primary) hypertension GERD (gastroesophageal reflux disease) GERD (gastroesophageal reflux disease) Hiatal hernia History of CVA (cerebrovascular accident) HLD (hyperlipidemia) Hypothyroidism Iron deficiency anemia Nephrolithiasis Nonrheumatic tricuspid (valve) insufficiency Obesity DANYELL (obstructive sleep apnea) Osteoarthritis Palpitations Premature ventricular contractions Right bundle branch block (RBBB) with left anterior fascicular block Right flank pain Shortness of breath Stroke/cerebrovascular accident Syncope and collapse Upper respiratory infection Vocal cord dysfunction Home Medications pravastatin 20 mg PO DAILY 01/05/14 [History Last Taken 02/09/20] cholecalciferol (vitamin D3) 5,000 unit PO DAILY 06/29/15 [History Last Taken 02/10/20] finasteride 5 mg PO DAILY 06/29/15 [History Last Taken 02/07/20 07:00] aspirin 81 mg PO DAILY 07/24/15 [History Last Taken 02/07/20 07:00] clopidogrel 75 mg PO DAILY 02/12/20 [History Last Taken Unknown] acetaminophen 1,000 mg PO Q6H PRN PRN tab 02/19/20 [Rx Last Taken Unknown] isosorbide mononitrate 30 mg tablet,extended release 24 hr 30 mg PO DAILY #90 tab 04/28/20 [Rx Last Taken Unknown] losartan 100 mg tablet 100 mg PO DAILY 07/21/20 [History Last Taken Unknown] amlodipine 5 mg tablet 5 mg PO DAILY #90 tablet 10/12/20 [Rx Last Taken Unknown] Handi cap Placard #1 ea 10/14/20 [Rx Last Taken Unknown] metformin 1,000 mg tablet 1,000 mg PO BIDCM #180 tab 12/14/20 [Rx Last Taken Unknown] pantoprazole 40 mg tablet,delayed release 40 mg PO DAILY #90 tab 12/14/20 [Rx Last Taken Unknown] insulin human U-100 NPH-regulr 70-30 mix 100 unit/mL subcutaneous susp 50 unit SC BID ml 12/17/20 [History Last Taken Unknown] vitamins A,C,O-axjw-vypvtx 7,160 unit-113 mg-100 unit tablet 2 tab PO DAILY tab 12/17/20 [History Last Taken Unknown] pen needle, diabetic 32 gauge x 1/4 #100 ea 12/25/20 [Rx Last Taken Unknown] Handicap Paccard #1 ea 01/18/21 [Rx Last Taken Unknown] escitalopram oxalate 5 mg tablet 5 mg PO DAILY #90 tab 02/09/21 [Rx Last Taken Unknown] furosemide 40 mg tablet 40 mg PO DAILY #90 tab 02/19/21 [Rx Last Taken Unknown] levothyroxine 50 mcg tablet 50 mcg PO DAILY #90 tab 02/19/21 [Rx Last Taken Unknown] carbidopa 25 mg-levodopa 100 mg tablet 1 tab PO TID #90 tab 02/25/21 [Rx Last Taken Unknown] Allergy/AdvReac Type Severity Reaction Status Date / Time lisinopril Allergy Mild Cough Verified 02/25/21 13:32 losartan AdvReac Intermediate Jitters Verified 02/25/21 13:32 metoprolol AdvReac Intermediate Jitters Verified 02/25/21 13:32 pioglitazone HCl [From Actos] AdvReac Mild Upset Verified 02/25/21 13:32 Stomach Family History Mother CAD (coronary artery disease) CVA (cerebral vascular accident) Brother CAD (coronary artery disease) Myocardial infarction Diabetes Heart disease Daughter Asthma Father Cancer bone cancer Sister Breast cancer Asthma Diabetes Heart disease Sister Cardiomyopathy Surgical History History of appendectomy History of back surgery History of coronary artery stent placement (07/01/15) History of left heart catheterization History of lymph node biopsy History of right and left heart catheterization (07/02/18) Social History Smoking Status: Former smoker pack-years: 2 how long ago did patient quit smokin+ years ago alcohol intake: former substance use type: does not use caffeine: Yes Type: coffee Number of servings: 2 what type of physical activity do you participate in: none seatbelt use: always do you feel safe at home: Yes ROS ROS ED Constitutional Constitutional ED: Denies chills or fever(s) ENT ENT ED: Denies sore throat Cardiovascular Cardiovascular: Denies chest pain Respiratory/Chest Respiratory/Chest: Denies cough or dyspnea Gastrointestinal Gastrointestinal: Denies abdominal pain, diarrhea, nausea or vomiting Genitourinary Genitourinary ED: Denies dysuria Musculoskeletal Musculoskeletal: Denies back pain, myalgias or neck pain Integumentary Denies rash Neurologic Neurologic: Reports weakness; Denies headache(s) or paresthesias Hematologic/Lymphatic Hematologic/Lymphatic: Reports easy bleeding and easy bruising EXAM Physical Exam Const Vital Signs: 04/06/21 18:29 04/06/21 19:30 04/06/21 21:05 Temperature 98.0 F Temperature Source Temporal Pulse Rate 90 81 75 Respiratory Rate 18 24 H 20 H Blood Pressure 145/81 H 103/63 119/91 H Blood Pressure Mean 102 76 100 Pulse Ox 97 94 94 Oxygen Delivery Method Room Air Room Air Room Air 04/06/21 21:24 04/06/21 21:48 Temperature Temperature Source Pulse Rate 80 77 Respiratory Rate 26 H 22 H Blood Pressure 123/73 H 148/98 H Blood Pressure Mean 89 114 Pulse Ox 93 94 Oxygen Delivery Method Room Air Room Air Positive well nourished and well developed General Appearance ED: well developed HEENT Reports moist mucous membranes Eyes PERRL and EOMs intact bilaterally Neck supple Resp normal respiratory effort and clear to auscultation bilaterally Cardio regular rate and regular rhythm GI non-tender and non-distended Auscultation: normoactive bowel sounds Palpation: soft Extremity normal to inspection Neuro oriented x3 and CN's II-XII intact bilaterally Neuro Narrative: Cranial nerves II through XII are grossly intact there are no focal neurologic deficits. No pronator drift no dysmetria no truncal ataxia. NIH stroke scale score of 0 Sensorium / Orientation: alert Motor Exam: strength 5/5 throughout Psych mental status grossly normal Skin no rashes or lesions noted MDM MDM MDM Narrative Medical decision making narrative: Patient presented to the ER in no acute distress and had a stroke scale score of 0. He reported some pain and weakness that began at midnight the night prior and is approximately 18 hours out from the time of the reported event. By exam I feel that his report of weakness was more due to muscular irritation as he did have some pain with this and could possibly be from a cervical radiculopathy. Basic blood work and imaging revealed no no acute finding. On reevaluation he has a stroke scale score of 0 still with no drift or weakness of the right arm. Therefore do not feel there is need for placement and he can follow-up on an outpatient basis Lab Data Attestation: I reviewed the patient's lab results. Labs: Laboratory Results - last 24 hr 04/06/21 04/06/21 04/06/21 18:29 18:50 18:50 WBC 4.3 L RBC 4.27 L Hgb 11.9 L Hct 38.1 L MCV 89.2 MCH 27.9 MCHC 31.2 L RDW Std Deviation 50.3 H RDW Coeff of Perla 15.6 H Plt Count 226 MPV 9.6 Immature Gran % (Auto) 0.900 Neut % (Auto) 57.2 Lymph % (Auto) 26.4 Dewey % (Auto) 9.2 Eos % (Auto) 5.6 H Baso % (Auto) 0.7 Absolute Neuts (auto) 2.4 Absolute Lymphs (auto) 1.12 Nucleated RBC % 0 Sodium 138 Potassium 4.0 Chloride 102 Carbon Dioxide 25.0 Anion Gap 11 BUN 14 Creatinine 1.40 H Estim Creat Clear Calc 33.48 Est GFR (MDRD) Af Amer 62 Est GFR (MDRD) Non-Af 51 L BUN/Creatinine Ratio 10.0 Glucose 182 H Calcium 9.5 Troponin I High Sens 14 POC Glucose 182 H Radiography Diagnostic Testing: Clinical Impression(s) from Imaging Studies Brain CT 04/06/21 18:54 IMPRESSION: Chronic involutional changes of the brain. Electronically Signed: Aldo Darling MD at 20:19 EDT , Service support , Cervical Spine CT 04/06/21 18:54 IMPRESSION: Multilevel degenerative changes, as described above. Electronically Signed: Aldo Darling MD at 20:25 EDT , Service support , Chest X-Ray 04/06/21 18:54 IMPRESSION: Degenerative changes, as described above. No demonstrated acute cardiopulmonary process. Electronically Signed: Aldo Darling MD at 20:36 EDT , Service support , Discharge Plan Triage Chief Complaint: Neuro S/Sx ED Provider: Helio Corrales Dx/Rx/DC Orders Clinical Impression: Weakness, Degenerative disc disease, cervical Instructions: Cervical Disk Problems, ED Weakness (Uncertain Cause) Prescriptions: No Action losartan 100 mg tablet 100 mg PO DAILY RF: 0 (DME) Handicap Paccard See Rx Instructions .Route .MEDSUPPLY Qty: 1 RF: 0 PreserVision AREDS 7,160 unit- 113 mg-100 unit tablet 2 tab PO DAILY RF: 0 carbidopa-levodopa [Sinemet] 25-100 mg tablet 1 tab PO TID Qty: 90 RF: 4 pravastatin 20 MG tablet 20 mg PO DAILY RF: 0 cholecalciferol (vitamin D3) 5,000 UNIT capsule 5,000 unit PO DAILY RF: 0 finasteride 5 MG tablet 5 mg PO DAILY RF: 0 insulin NPH and regular human 100 unit/mL (70-30) suspension 50 unit SC BID RF: 0 aspirin 81 MG tablet,delayed release (DR/EC) 81 mg PO DAILY RF: 0 clopidogrel 75 MG tablet 75 mg PO DAILY RF: 0 acetaminophen 500 MG tablet 1,000 mg PO Q6H PRN PRN (Reason: Pain Score 1-3/10) RF: 0 isosorbide mononitrate 30 mg tablet extended release 24 hr 30 mg PO DAILY Qty: 90 RF: 3 amlodipine 5 mg tablet 5 mg PO DAILY Qty: 90 RF: 3 (DME) Handi cap Placard See Rx Instructions .Route .MEDSUPPLY Qty: 1 RF: 0 metformin 1,000 mg tablet 1,000 mg PO BIDCM Qty: 180 RF: 3 pantoprazole 40 mg tablet,delayed release (DR/EC) 40 mg PO DAILY Qty: 90 RF: 3 (DME) pen needle, diabetic 32 gauge x 1/4 needle See Rx Instructions .ROUTE .MEDSUPPLY Qty: 100 RF: 2 escitalopram oxalate 5 mg tablet 5 mg PO DAILY Qty: 90 RF: 1 furosemide 40 mg tablet 40 mg PO DAILY Qty: 90 RF: 3 levothyroxine 50 mcg tablet 50 mcg PO DAILY Qty: 90 RF: 1 Primary Care Provider: Marie Maciel Referrals: Marie Maciel MD [Primary Care Provider] - Disposition Disposition: Home, Self Care
[2021-04-06 22:52] VITALS: BP 146/96
== END 2021-04-06 22:53 | disposition home or self-care (01) ==
PROVIDERS: Emergency Provider Emergency Medicine; PCP Internal Medicine
DX: R53.1 Weakness (principal); M50.10 Cervical disc disorder with radiculopathy, unspecified cervical region; E03.9 Hypothyroidism, unspecified; E11.22 Type 2 diabetes mellitus with diabetic chronic kidney disease; E66.9 Obesity, unspecified; E78.5 Hyperlipidemia, unspecified; G47.33 Obstructive sleep apnea (adult) (pediatric); I12.9 Hypertensive chronic kidney disease with stage 1 through stage 4 chronic kidney disease, or unspecified chronic kidney disease; I25.10 Atherosclerotic heart disease of native coronary artery without angina pectoris; I42.0 Dilated cardiomyopathy; K21.9 Gastro-esophageal reflux disease without esophagitis; M19.90 Unspecified osteoarthritis, unspecified site; N18.30 Chronic kidney disease, stage 3 unspecified; N40.0 Benign prostatic hyperplasia without lower urinary tract symptoms; Z68.41 Body mass index [BMI] 40.0-44.9, adult; Z86.73 Personal history of transient ischemic attack (TIA), and cerebral infarction without residual deficits; Z79.4 Long term (current) use of insulin; Z79.82 Long term (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 of aspirin; Z79.899 Other long term (current) drug therapy; Z87.891 Personal history of nicotine dependence
CPT/HCPCS: 70450; 71045; 72125; 80048; 82962; 84484; 85025; 93005; 99283; A4216

== ENCOUNTER → 2021-05-20 15:27 | Outpatient (CLI) | payer MEDICARE, SELFPAY ==
--- NOTE | 2021-05-20 15:32 | RAD_ITS ---
STUDY: X-RAY - CERVICAL SPINE REASON FOR EXAM: Male, 85 years old. Spondylosis without myelopathy or radiculopathy, cervical region TECHNIQUE: XR Spine Cervical 2 or 3 Views COMPARISON: None FINDINGS: Normal anterior atlantoaxial articulation. No acute findings of the odontoid process. There is straightening of the normal cervical lordosis. There is multi-level endplate spondylosis. There is multi-level degenerative disc disease with multilevel disc space narrowing. There is multi-level osseous foraminal stenosis. The soft tissue structures are unremarkable. RAD/Cerv Spine 2 or 3 Views IMPRESSION: There are degenerative changes as noted above. There is mild straightening of the normal cervical lordosis. This can suggest neck strain. Electronically Signed: Mark Cadena MD at 15:49 EST , Service support ,
== END ==
PROVIDERS: PCP Internal Medicine; Referring Provider Anesthesiology Pain Medicine; Visit Provider Anesthesiology Pain Medicine
DX: M47.812 Spondylosis without myelopathy or radiculopathy, cervical region (principal)
CPT/HCPCS: 72040

== ENCOUNTER 2021-06-22 10:56 | Outpatient (CLI) | payer MEDICARE, SELFPAY ==
[2021-06-22 11:54] LABS: Vitamin B12 717 pg/mL (211-911)
== END 2021-06-22 23:59 | disposition short-term general hospital (02) ==
LOC: LAB 10:59
PROVIDERS: PCP Internal Medicine; Referring Provider Psychiatry & Neurology Neurology; Visit Provider Psychiatry & Neurology Neurology
DX: E53.8 Deficiency of other specified B group vitamins (principal)
CPT/HCPCS: 36415; 82607

== ENCOUNTER → 2021-10-13 | Outpatient (CLI) | payer MEDICARE, SELFPAY ==
[2021-10-13 15:26] LABS: Absolute Lymphocyte Count 0.99 X10^3/uL (0.83-4.51); Absolute Neutrophil Count 2.9 X10^3/uL (2.0-7.7); Basophil# 0.04 X10^3/uL; Basophil% 0.9 % (0-1); Eosinophil# 0.14 X10^3/uL; Eosinophils% 3.1 % (0-5); Hematocrit 36.1 % (40-54); Hemoglobin 11.2 g/dL (13.0-16.5); Lymphocyte # 0.99 X10^3/ul (0.83-4.51); Lymphocyte % 21.6 % (19-41); Mean Corpuscular Hgb 26.8 pg (27.0-32.0); Mean Corpuscular Volume 86.4 fL (80-94); Mean Platelet Vol. 10.5 fl (6.2-12.0); Monocyte# 0.53 X10^3/uL; Monocyte% 11.5 % (0-10); NRBC Flagged by Analyzer 0 % (0-5); Neutrophil # 2.86 X10^3/uL (2.7-7.7); Neutrophil % 62.2 % (47-70); Platelet Count 238 K/mm3 (150-450); RBC Distribution Width CV 15.8 % (11.6-14.6); RBC Distribution Width SD 49.8 fl (35.1-43.9); Red Blood Count 4.18 M/mm3 (4.6-6.2); White Blood Count 4.6 K/mm3 (4.4-11.0)
[2021-10-13 15:57] LABS: ALB/GLOB Ratio 1.1 RATIO (0.9-2.4); AST(SGOT) 17 U/L (15-37); Alanine Aminotransfer ALT/SGPT 21 U/L (16-61); Albumin, Serum 3.7 g/dL (3.2-5.0); Alkaline Phosphatase 27 U/L (45-117); Anion Gap 7 (5-15); BUN 21 mg/dL (7-18); BUN/Creat Ratio 15.2 RATIO (10-20); Calcium,Total 9.5 mg/dL (8.5-10.1); Chloride 102 mmol/L (98-107); Cholesterol 169 mg/dL (200); Creatinine, Serum 1.38 mg/dL (0.70-1.30); EST Glomerular Filtration Rate 52 mL/min (>60); Est Glom Filt Rate - Afr Amer 63 mL/min (>60); Free T3 2.2 pg/mL (2.18-3.98); Globulin 3.4 g/dL (2.2-4.2); Glucose 144 mg/dL (74-106); High Density Lipoprotein 41 mg/dL; Potassium 4.2 mmol/L (3.5-5.1); Protein, Total 7.1 g/dL (6.4-8.2); Sodium Level 137 mmol/L (136-145); T4 Free Direct 0.93 ng/dL (0.76-1.46); Thyroid Stim Hormone (TSH) 2.15 uIU/mL (0.358-3.74); Triglycerides 247 mg/dL; Very Low Density Lipoprotein 49 mg/dL (5-40)
[2021-10-13 19:16] LABS: Vitamin B12 891 pg/mL (211-911); Vitamin D,25 Hydroxy 67.7 ng/mL
== END | disposition home or self-care (01) ==
LOC: BIMLAB 14:14
PROVIDERS: PCP Internal Medicine; Visit Provider Internal Medicine
DX: E78.5 Hyperlipidemia, unspecified (principal); I42.9 Cardiomyopathy, unspecified; E11.65 Type 2 diabetes mellitus with hyperglycemia; E11.22 Type 2 diabetes mellitus with diabetic chronic kidney disease; E66.01 Morbid (severe) obesity due to excess calories; Z68.41 Body mass index [BMI] 40.0-44.9, adult; Z79.4 Long term (current) use of insulin; N18.31 Chronic kidney disease, stage 3a; E53.8 Deficiency of other specified B group vitamins
CPT/HCPCS: 36415; 80053; 80061; 82306; 82607; 84439; 84443; 84481; 85025

== ENCOUNTER → 2021-10-26 | Outpatient (CLI) | payer MEDICARE, SELFPAY ==
--- NOTE | 2021-10-26 15:21 | RAD_ITS ---
EXAM: XR CHEST, 2 VIEWS CLINICAL INDICATION: cad TECHNIQUE: Frontal and lateral views of the chest. This report was created using [employer] report generation technology. COMPARISON: 04/06/2021 FINDINGS: LUNGS AND PLEURAL SPACES: No airspace disease. Left pleural parenchymal scarring at the lateral/peripheral aspect of the left midlung zone. No pneumothorax. No effusion. HEART: CABG postsurgical changes with intact sternotomy wires. MEDIASTINUM: Moderate size hiatal hernia. BONES/JOINTS: Degenerative changes of the spine and acromioclavicular joints. SOFT TISSUES: Unremarkable. VASCULATURE: Atherosclerotic calcifications of the nonenlarged thoracic aortic arch. RAD/Chest PA and Lateral IMPRESSION: 1. No pneumonia. No other acute disease. 2. Moderate size hiatal hernia. 3. Left pleural parenchymal scarring at the left midlung zone. Electronically Signed: Helio Styles MD at 16:14 EDT ,
[2021-10-26 16:19] LABS: Absolute Lymphocyte Count 1.47 X10^3/uL (0.83-4.51); Absolute Neutrophil Count 3.3 X10^3/uL (2.0-7.7); Basophil# 0.04 X10^3/uL; Basophil% 0.7 % (0-1); Eosinophil# 0.19 X10^3/uL; Eosinophils% 3.4 % (0-5); Hematocrit 37.2 % (40-54); Hemoglobin 11.6 g/dL (13.0-16.5); Lymphocyte # 1.47 X10^3/ul (0.83-4.51); Lymphocyte % 26.1 % (19-41); Mean Corp Hgb Conc 31.2 g/dL (32-36); Mean Corpuscular Hgb 26.9 pg (27.0-32.0); Mean Corpuscular Volume 86.1 fL (80-94); Mean Platelet Vol. 9.3 fl (6.2-12.0); Monocyte# 0.62 X10^3/uL; NRBC Flagged by Analyzer 0 % (0-5); Neutrophil # 3.28 X10^3/uL (2.7-7.7); Neutrophil % 58.1 % (47-70); Platelet Count 259 K/mm3 (150-450); RBC Distribution Width CV 16.2 % (11.6-14.6); RBC Distribution Width SD 50.3 fl (35.1-43.9); Red Blood Count 4.32 M/mm3 (4.6-6.2); White Blood Count 5.6 K/mm3 (4.4-11.0)
[2021-10-26 16:49] LABS: Anion Gap 7 (5-15); BUN 22 mg/dL (7-18); BUN/Creat Ratio 14.4 RATIO (10-20); Calcium,Total 10.1 mg/dL (8.5-10.1); Chloride 103 mmol/L (98-107); Creatinine, Serum 1.53 mg/dL (0.70-1.30); EST Glomerular Filtration Rate 46 mL/min (>60); Est Glom Filt Rate - Afr Amer 56 mL/min (>60); Glucose 109 mg/dL (74-106); Potassium 4.7 mmol/L (3.5-5.1); Sodium Level 138 mmol/L (136-145)
[2021-10-26 16:50] LABS: BNP,B-Type NATRIURETIC PEPTIDE 98.4 pg/mL (0-100)
== END | disposition home or self-care (01) ==
PROVIDERS: PCP Internal Medicine; Referring Provider Internal Medicine Cardiovascular Disease; Visit Provider Internal Medicine Cardiovascular Disease
DX: I25.10 Atherosclerotic heart disease of native coronary artery without angina pectoris (principal); I42.9 Cardiomyopathy, unspecified; Z95.5 Presence of coronary angioplasty implant and graft
CPT/HCPCS: 36415; 71046; 80048; 83880; 85025

== ENCOUNTER → 2021-10-29 | Day surgery (SDC) | payer MEDICARE, SELFPAY ==
[2021-10-28 08:17] VITALS: BMI 41.1
--- NOTE | 2021-11-01 11:08 | CL.D_ITS ---
Patient Name: DARREN REDDY Study Date: 10/29/2021 Performing: David Ashton MD Ht: 64.17 inches 163 cm : 1935 Wt: 240.3 lbs 109 kg Age: 86 Gender: male BSA: 2.12 PROCEDURE(S) PERFORMED [id number])[facility] CLINICAL PROFILE AND INDICATIONS Indications: Worsening Angina Heart Failure: None CONCLUSIONS Diffuse coronary artery disease with no evidence of high-grade stenosis noted. Previously placed albino nts are noted to be patent. RECOMMENDATIONS Medical therapy DESCRIPTION OF PROCEDURE The patient arrived to the procedure lab. The risks and benefits of the procedure as well as a full d escription of our services here and current unavailability of surgical backup were fully explained to the patient and/or their significant other prior to the catheterization. The Timeout was completed, verifying the correct patient and procedure. The patient's procedural site was prepped and draped in the usual fashion. Local anesthetic was given subcutaneously to right radial region with Lidocaine 2% . Local anesthetic was given subcutaneously to right ulnar region with Lidocaine 2%. Using a modified Seldinger technique, arterial access was obtained via the right ulnar artery, a 6Fr sheath was inser margo. Left Coronary Artery selective angiography was performed in multiple views using a 5 Fr. 4.0 Ti angela catheter. Right Coronary Artery selective angiography was then performed in multiple views using a 5 Fr. 4.0 Savoy catheter.The arterial sheath was flushed then pulled and a TR Band was applied for hemostasis 11ml air CORONARY ANGIOGRAPHY DOMINANCE: Right Dominant LEFT HEART ASSESSMENT Left Ventricular Ejection Fraction: by Echo 40 % Depressed Left Ventricular systolic function LEFT MAIN: Mild ostial stenosis with good diet reflux LEFT ANTERIOR DESCENDING ARTERY: Medium size vessel with previously placed stent proximally noted to be patent and mild diffuse disease of 30 to 50% CIRCUMFLEX ARTERY: Mild luminal irregularities less than 30% RIGHT CORONARY ARTERY: Large dominant vessel diffusely diseased with proximal 30% stenosis, mid 50% s tenosis and distal luminal irregularities of 30 to 40% stenosis. COMPLICATIONS No Complications PROCEDURE MEDICATIONS Versed 1 mg IV Fentanyl 50 mcg IV Fentanyl 25 mcg IV Oxygen: 2 L/min via nasal cannula Heparin given IA 10/29/2021 08:39:36 Verapamil 2.5mg, Ntg 100mcgs, 3000 units of Heparin given IA 10/29/2021 08:39:36 IV Fluids: .9 NaCl IV started @ 100 ml/hr 10/29/2021 07:16:19 SUMMARY OF HEMODYNAMIC DATA Time AIR REST ECG 07:12:46 AO 85/56 (70) SA 08:42:39 RM AIR REST 08:57:28 Signed By aDvid Ashton MD On 11/01/2021 11:06:57 David Ashton MD
== END | disposition home or self-care (01) ==
LOC: CLSP 06:51
PROVIDERS: PCP Internal Medicine; Referring Provider Internal Medicine Cardiovascular Disease; Visit Provider Internal Medicine Cardiovascular Disease
DX: I25.10 Atherosclerotic heart disease of native coronary artery without angina pectoris (principal); G20 Parkinson's disease; I42.0 Dilated cardiomyopathy; E11.22 Type 2 diabetes mellitus with diabetic chronic kidney disease; Z68.41 Body mass index [BMI] 40.0-44.9, adult; Z79.4 Long term (current) use of insulin; N18.30 Chronic kidney disease, stage 3 unspecified; E78.5 Hyperlipidemia, unspecified; I45.2 Bifascicular block; N40.0 Benign prostatic hyperplasia without lower urinary tract symptoms; Z87.19 Personal history of other diseases of the digestive system; Z79.899 Other long term (current) drug therapy; K21.9 Gastro-esophageal reflux disease without esophagitis; E03.9 Hypothyroidism, unspecified; E66.9 Obesity, unspecified; G47.33 Obstructive sleep apnea (adult) (pediatric); Z86.73 Personal history of transient ischemic attack (TIA), and cerebral infarction without residual deficits; Z87.442 Personal history of urinary calculi; Z95.5 Presence of coronary angioplasty implant and graft; Z87.891 Personal history of nicotine dependence; Z79.82 Long term (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 of aspirin
CPT/HCPCS: 93454; 99152; 99153; J7030; Q9967; C1769; C1894

== ENCOUNTER 2022-02-01 13:16 | Emergency (ER) | payer MEDICARE, SELFPAY ==
[2022-02-01 13:24] VITALS: BP 132/66; PULSE 79; RESP 18; TEMP 36.6; O2SAT 97; BMI 40.8
--- NOTE | 2022-02-01 13:50 | CT_ITS ---
INDICATION: Trauma EXAMINATION: CT BRAIN - CT Head or Brain W/O Contrast Injection TECHNIQUE: Multiple axial images were obtained of the head without intravenous contrast. A radiation dose optimization technique was used for this scan. IV Contrast dosage and agent: None. COMPARISON: 04/06/2021 FINDINGS: No evidence of parenchymal hemorrhages or contusions. No evidence of intra or extra-axial fluid collection is seen. Right frontal scalp subcutaneous soft tissue swelling. No evidence of fracture of the underlying frontal bones. No evidence of acute territorial infarct is visualized. Subtle areas of low attenuation suggestive of for mild chronic microvascular disease. Mild prominence of the ventricles and sulci is visualized suggestive of chronic atrophic brain changes unremarkable for the patient''s age. The posterior fossa is unremarkable. Basal cisterns are patent. CALVARIUM, SKULL BASE, PARANASAL SINUSES AND MASTOID AIR CELLS: Clear. No discrete lytic or blastic abnormalities. ORBITS: Both globes, extraocular muscles, optic nerves and retrobulbar fat appear unremarkable. CT/Brain/Head without Contrast IMPRESSION: Right frontal scalp soft tissue hematoma. No underlying osseous abnormality is seen. No evidence of acute intracranial pathology is seen. Electronically Signed: Neo Melgar MD at 15:08 EDT Reading Location ID and State: [facility] / [place] Tel , Service support ,
--- NOTE | 2022-02-01 13:58 | EDS_ITS ---
HPI HPI - Fall History of Present Illness Chief Complaint: Laceration Informant: patient Occured/Mechanism Occurred: Today Mechanism/Context: Yes same level fall and Yes trip Pain/Injury Pain Location: head and face Quality of Pain: Dull and Aching Worsened by: Nothing Relieved by: Nothing Associated Symptoms Associated Symptoms: Negative for Parasthesias, Weakness, Loss of function, Inability to ambulate, Loss of consciousness or Amnesia Narrative Narrative: Patient presents with a head injury that occurred today. Patient states he slipped and fell in his garage. Patient states he fell forward and hit his head. Patient describes his pain as dull and aching. Patient states nothing makes it better nothing makes it worse. Patient denies any loss of consciousness. Patient is unsure of his last tetanus. Patient denies any paresthesias or weakness. Patient denies any other injuries. [facility] Medical History Anemia Appendicitis Atherosclerotic heart disease of [place] coronary artery without angina pectoris Benign prostatic hypertrophy BMI 40.0-44.9, adult Body mass index (BMI) 40.0-44.9, adult BPH (benign prostatic hyperplasia) Chest pain CKD (chronic kidney disease) stage 3, GFR 30-59 ml/min Cough Debility Diabetes mellitus type 2 in obese 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 Dyspnea Essential (primary) hypertension GERD (gastroesophageal reflux disease) GERD (gastroesophageal reflux disease) Hiatal hernia History of CVA (cerebrovascular accident) HLD (hyperlipidemia) Hypothyroidism Iron deficiency anemia Nephrolithiasis Nonrheumatic tricuspid (valve) insufficiency Obesity Obesity DANYELL (obstructive sleep apnea) Osteoarthritis Palpitations Premature ventricular contractions Right bundle branch block (RBBB) with left anterior fascicular block Right flank pain Shortness of breath Stroke/cerebrovascular accident Syncope and collapse Upper respiratory infection Vocal cord dysfunction Home Medications cholecalciferol (vitamin D3) 125 mcg (5,000 unit) capsule 5,000 unit PO DAILY vitamin 06/29/15 [History Last Taken 02/10/20] finasteride 5 mg tablet 5 mg PO DAILY prostate 06/29/15 [History Last Taken 10/29/21] aspirin 81 mg tablet,delayed release 81 mg PO DAILY heart health 07/24/15 [History Last Taken 10/29/21] acetaminophen 500 mg tablet 1,000 mg PO Q6H PRN PRN Pain Score 1-302/19/20 [Rx Last Taken Unknown] Handi cap Placard #1 ea 10/14/20 [Rx Last Taken Unknown] insulin human U-100 NPH-regulr 70-30 mix 100 unit/mL subcutaneous susp 50 unit subcut BID diabetes 12/17/20 [History Last Taken Unknown] vitamins A,C,I-ttio-fgnsup 2,148 mcg-113 mg-45 mg-17.4 mg tablet (PreserVision AREDS) 2 tab PO DAILY 12/17/20 [History Last Taken Unknown] pen needle, diabetic 32 gauge x 1/4 #100 ea 12/25/20 [Rx Last Taken Unknown] Handicap Paccard #1 ea 01/18/21 [Rx Last Taken Unknown] furosemide 40 mg tablet 40 mg PO DAILY Fluid retention #90 tabs 02/19/21 [Rx Last Taken 10/29/21] isosorbide mononitrate 30 mg tablet,extended release 24 hr 30 mg PO DAILY Ask Dr #90 tabs 04/19/21 [Rx Last Taken 10/29/21] levothyroxine 50 mcg tablet 50 mcg PO DAILY thyroid #90 tabs 08/05/21 [Rx Last Taken 10/29/21] clopidogrel 75 mg tablet 75 mg PO DAILY Cholestrol #90 tabs 09/21/21 [Rx Last Taken 10/29/21] amlodipine 5 mg tablet 5 mg PO DAILY BP #90 tabs 10/04/21 [Rx Last Taken 10/29/21] carbidopa 25 mg-levodopa 100 mg tablet (Sinemet) See Rx Instructions .Route .COMPLEX #150 tabs 10/11/21 [Rx Last Taken 10/29/21] pravastatin 20 mg tablet 20 mg PO DAILY cholesterol #90 tabs 10/20/21 [Rx Last Taken Unknown] losartan 100 mg tablet 100 mg PO DAILY #90 tabs 11/04/21 [Rx Last Taken Unknown] pantoprazole 40 mg tablet,delayed release 40 mg PO DAILY reflux #90 tabs 12/15/21 [Rx Last Taken Unknown] metformin 1,000 mg tablet 1,000 mg PO BIDCM diabetes #180 tabs 12/27/21 [Rx Last Taken Unknown] escitalopram oxalate 5 mg tablet 5 mg PO DAILY #90 tabs 01/19/22 [Rx Last Taken Unknown] Allergy/AdvReac Type Severity Reaction Status Date / Time lisinopril Allergy Mild Cough Verified 02/01/22 13:23 losartan AdvReac Intermediate Jitters Verified 02/01/22 13:23 metoprolol AdvReac Intermediate Jitters Verified 02/01/22 13:23 pioglitazone HCl [From Actos] AdvReac Mild Upset Verified 02/01/22 13:23 Stomach Family History Mother CAD (coronary artery disease) CVA (cerebral vascular accident) Brother CAD (coronary artery disease) Myocardial infarction Diabetes Heart disease Daughter Asthma Father Cancer bone cancer Sister Breast cancer Asthma Diabetes Heart disease Sister Cardiomyopathy Surgical History History of appendectomy History of back surgery History of coronary artery stent placement (07/01/15) History of left heart catheterization (11/01/21) History of lymph node biopsy History of right and left heart catheterization (07/02/18) Social History Smoking Status: Former smoker pack-years: 2 how long ago did patient quit smokin+ years ago alcohol intake: former substance use type: does not use caffeine: Yes Type: coffee Number of servings: 2 what type of physical activity do you participate in: none seatbelt use: always do you feel safe at home: Yes ROS ROS ED Constitutional Constitutional ED: Denies chills or fever(s) Eyes Eyes: Denies blurry vision or change in vision ENT ENT ED: Denies rhinorrhea or sore throat Cardiovascular Cardiovascular: Denies chest pain or palpitations Respiratory/Chest Respiratory/Chest: Denies cough or dyspnea Gastrointestinal Gastrointestinal: Denies nausea or vomiting Genitourinary Genitourinary ED: Denies dysuria or hematuria Musculoskeletal Musculoskeletal: Denies back pain or neck pain Integumentary Denies abscess or rash Neurologic Neurologic: Reports headache(s); Denies weakness Allergic/Immunologic Allergic/Immunologic ED: Denies mouth swelling or urticaria EXAM Physical Exam Const Vital Signs: 02/01/22 13:24 02/01/22 13:41 Temperature 97.8 F Temperature Source Temporal Pulse Rate 79 Respiratory Rate 18 Respiratory Effort Normal Non-Labored Respiratory Depth Normal Respiratory Pattern Normal Blood Pressure 132/66 H Blood Pressure Mean 88 Pulse Ox 97 Oxygen Delivery Method Room Air Room Air Positive well nourished and well developed General Appearance ED: well developed and NAD HEENT HEENT Narrative: There is a 3 cm full-thickness linear laceration just above the right eyebrow. There is moderate gapping of the wound margins. There is moderate bleeding. There is no bony crepitance or step-off. There is no foreign body noted. Nasal mucosa is pink and moist. There is no septal deviation or septal hematoma. There is no active epistaxis. trauma Eyes PERRL and EOMs intact bilaterally Neck full ROM and supple Neuro oriented x3, CN's II-XII intact bilaterally, moves all extremities, no focal motor deficits and no sensory deficits noted Sensorium / Orientation: alert Motor Exam: strength 5/5 throughout Psych mental status grossly normal MDM MDM MDM Narrative Medical decision making narrative: CT scan of the brain was obtained. There is no acute intracranial abnormality. There is a right frontal soft tissue hematoma. This was interpreted by the radiologist and reviewed by myself. LET gel was applied to the wound. The wound was cleaned and irrigated with copious amounts of normal saline. The wound was anesthetized with 1% lidocaine with epinephrine. The wound was explored. There were no foreign bodies. There is no bony crepitance or step- off. The wound was closed with 4 subcutaneous #5-0 Vicryl simple interrupted sutures and 7 simple interrupted #5-0 Ethilon sutures under sterile technique. Patient tolerated the procedure well. Bacitracin dressing was applied. Patient was instructed to keep the wound clean and dry. Patient was instructed to follow-up with his primary care physician in 5 to 7 days. Patient understood and was agreeable with the plan. All questions were answered. Radiography Diagnostic Testing: Clinical Impression(s) from Imaging Studies Brain CT 02/01/22 13:50 IMPRESSION: Right frontal scalp soft tissue hematoma. No underlying osseous abnormality is seen. No evidence of acute intracranial pathology is seen. Electronically Signed: Neo Melgar MD at 15:08 EDT , Procedures Lacerations Right eyebrow: Length: 3 cm Depth: Sub Q Shape: Stellate Prep: Sterile Conditions and Chlorhexadine Laceration repair: Irrigated, Lidocaine with epi, Local, Skin sutures (7), Subcutaneous sutures (4) and Wound explored Suture Information: Vicryl (4 simple interrupted subcutaneous), Ethilon (7 simple interrupted) and 5-0 Discharge Plan Triage Chief Complaint: Laceration Other Complaint: Fall Head Injury ED Provider: Tevin Tran Dx/Rx/DC Orders Clinical Impression: Closed head injury, Parkinson's disease, Laceration of right eyebrow, Fall Instructions: ED Laceration: All Closures, ED Laceration Minimize Scars Prescriptions: No Action (DME) Handicap Paccard See Rx Instructions .Route .MEDSUPPLY Qty: 1 0RF Rx Instructions: Duration: Lifetime (5 yrs): CAD, debility PreserVision AREDS 7,160 unit- 113 mg-100 unit tablet 2 tab PO DAILY Rx Instructions: administer with AM and PM meals carbidopa-levodopa [Sinemet] 25-100 mg tablet See Rx Instructions .ROUTE .COMPLEX Qty: 150 6RF Rx Instructions: Take 2 tabs every morning, 1 tab every mid-day, and 2 tabs every night cholecalciferol (vitamin D3) 5,000 UNIT capsule 5,000 unit PO DAILY Label Comments: SUPPLIMENT finasteride 5 MG tablet 5 mg PO DAILY Label Comments: PROSTATE insulin NPH and regular human 100 unit/mL (70-30) suspension 50 unit SC BID Label Comments: BLOOD SUGAR, PT USES SLIDING SCALE Rx Instructions: 50 units in the AM 36 units in the PM and sliding scale aspirin 81 MG tablet,delayed release (DR/EC) 81 mg PO DAILY acetaminophen 500 MG tablet 1,000 mg PO Q6H PRN PRN (Reason: Pain Score 1-3/10) 0RF (DME) Handi cap Placard See Rx Instructions .Route .MEDSUPPLY Qty: 1 0RF Rx Instructions: difficulty walking short distance. expires in 5 years (DME) pen needle, diabetic 32 gauge x 1/4 needle See Rx Instructions .ROUTE .MEDSUPPLY Qty: 100 2RF Rx Instructions: As directed furosemide 40 mg tablet 40 mg PO DAILY Qty: 90 3RF isosorbide mononitrate 30 mg tablet extended release 24 hr 30 mg PO DAILY Qty: 90 3RF levothyroxine 50 mcg tablet 50 mcg PO DAILY Qty: 90 1RF clopidogrel 75 mg tablet 75 mg PO DAILY Qty: 90 3RF amlodipine 5 mg tablet 5 mg PO DAILY Qty: 90 3RF pravastatin 20 mg tablet 20 mg PO DAILY Qty: 90 3RF losartan 100 mg tablet 100 mg PO DAILY Qty: 90 3RF pantoprazole 40 mg tablet,delayed release (DR/EC) 40 mg PO DAILY Qty: 90 3RF metformin 1,000 mg tablet 1,000 mg PO BIDCM Qty: 180 3RF escitalopram oxalate 5 mg tablet 5 mg PO DAILY Qty: 90 3RF Rx Instructions: Take 1/2 tablet for 4 days then increase to 1 tablet. Primary Care Provider: Marie Maciel Referrals: Marie Maciel MD [Primary Care Provider] - 5 Days for suture removal Disposition Disposition: Home, Self Care
[2022-02-01] MEDS: Diphth,Pertuss(Acell),Tet Vac 0.5 ML Vial IM (14:15)
[2022-02-01] MEDS: Lidocaine/Epi/Tetracaine 50 ML 1 APPLIC TOPICAL (14:30)
[2022-02-01] MEDS: Lidocaine 1% /Epi 1:100 (20ml) 20 ML Vial INFILT (15:55)
[2022-02-01 16:28] VITALS: BP 136/78; PULSE 78; RESP 16; O2SAT 98
== END 2022-02-01 16:29 | disposition home or self-care (01) ==
PROVIDERS: Emergency Provider Emergency Medicine; PCP Internal Medicine; Visit Provider Emergency Medicine
DX: S01.111A Laceration without foreign body of right eyelid and periocular area, initial encounter (principal); G20 Parkinson's disease; I42.0 Dilated cardiomyopathy; E11.22 Type 2 diabetes mellitus with diabetic chronic kidney disease; Z68.41 Body mass index [BMI] 40.0-44.9, adult; Z79.4 Long term (current) use of insulin; N18.30 Chronic kidney disease, stage 3 unspecified; W01.10XA Fall on same level from slipping, tripping and stumbling with subsequent striking against unspecified object, initial encounter; Y92.89 Other specified places as the place of occurrence of the external cause; N40.0 Benign prostatic hyperplasia without lower urinary tract symptoms; K21.9 Gastro-esophageal reflux disease without esophagitis; Z86.73 Personal history of transient ischemic attack (TIA), and cerebral infarction without residual deficits; E03.9 Hypothyroidism, unspecified; D50.9 Iron deficiency anemia, unspecified; G47.33 Obstructive sleep apnea (adult) (pediatric); Z87.442 Personal history of urinary calculi; E78.5 Hyperlipidemia, unspecified; E66.9 Obesity, unspecified; I25.10 Atherosclerotic heart disease of native coronary artery without angina pectoris; Z79.82 Long term (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 of aspirin; Z79.899 Other long term (current) drug therapy; Z95.5 Presence of coronary angioplasty implant and graft; Z87.891 Personal history of nicotine dependence; Z23 Encounter for immunization
CPT/HCPCS: 12013; 70450; 90471; 90715; 99285

== ENCOUNTER → 2022-02-16 | Outpatient (CLI) | payer MEDICARE, SELFPAY ==
[2022-02-16 15:56] LABS: Absolute Neutrophil Count 3.3 X10^3/uL (2.0-7.7); Basophil# 0.05 X10^3/uL; Basophil% 0.9 % (0-1); Eosinophil# 0.17 X10^3/uL; Eosinophils% 3.2 % (0-5); Hematocrit 34.6 % (40-54); Hemoglobin 11.1 g/dL (13.0-16.5); Lymphocyte % 22.4 % (19-41); Mean Corp Hgb Conc 32.1 g/dL (32-36); Mean Corpuscular Hgb 28.8 pg (27.0-32.0); Mean Corpuscular Volume 89.9 fL (80-94); Mean Platelet Vol. 9.1 fl (6.2-12.0); Monocyte% 11.2 % (0-10); NRBC Flagged by Analyzer 0 % (0-5); Neutrophil # 3.29 X10^3/uL (2.7-7.7); Neutrophil % 61.6 % (47-70); Platelet Count 289 K/mm3 (150-450); RBC Distribution Width CV 17.4 % (11.6-14.6); RBC Distribution Width SD 57.6 fl (35.1-43.9); Red Blood Count 3.85 M/mm3 (4.6-6.2); White Blood Count 5.4 K/mm3 (4.4-11.0)
[2022-02-16 16:13] LABS: Vitamin D,25 Hydroxy 59.5 ng/mL
[2022-02-16 16:25] LABS: ALB/GLOB Ratio 1.1 RATIO (0.9-2.4); AST(SGOT) 30 U/L (15-37); Alanine Aminotransfer ALT/SGPT 16 U/L (16-61); Albumin, Serum 3.7 g/dL (3.2-5.0); Alkaline Phosphatase 26 U/L (45-117); Anion Gap 9 (5-15); BUN 24 mg/dL (7-18); BUN/Creat Ratio 13.3 RATIO (10-20); Chloride 103 mmol/L (98-107); EST Glomerular Filtration Rate 38 mL/min (>60); Est Glom Filt Rate - Afr Amer 46 mL/min (>60); Free T3 2.5 pg/mL (2.18-3.98); Globulin 3.4 g/dL (2.2-4.2); Glucose 133 mg/dL (74-106); Iron 63 ug/dL (65-175); Iron Binding Capacity,Total 454 ug/dL (250-450); PERCENT IRON SATURATION 13.9 % (15.0-55.0); PSA,Total - Annual Screen 1.22 ng/mL (0.00-4.00); Potassium 5.5 mmol/L (3.5-5.1); Protein, Total 7.1 g/dL (6.4-8.2); Sodium Level 139 mmol/L (136-145); Thyroid Stim Hormone (TSH) 2.23 uIU/mL (0.358-3.74)
== END | disposition home or self-care (01) ==
LOC: LAB 15:09
PROVIDERS: PCP Internal Medicine; Referring Provider Internal Medicine; Visit Provider Internal Medicine
DX: E11.22 Type 2 diabetes mellitus with diabetic chronic kidney disease (principal); I42.9 Cardiomyopathy, unspecified; Z68.41 Body mass index [BMI] 40.0-44.9, adult; N18.31 Chronic kidney disease, stage 3a; I12.9 Hypertensive chronic kidney disease with stage 1 through stage 4 chronic kidney disease, or unspecified chronic kidney disease; E66.9 Obesity, unspecified; I25.10 Atherosclerotic heart disease of native coronary artery without angina pectoris; I45.2 Bifascicular block; E78.5 Hyperlipidemia, unspecified; G47.33 Obstructive sleep apnea (adult) (pediatric); Z12.5 Encounter for screening for malignant neoplasm of prostate
CPT/HCPCS: 36415; 80053; 82306; 83540; 83550; 84153; 84439; 84443; 84481; 85025; G0103

== ENCOUNTER → 2022-03-03 | Outpatient (CLI) | payer MEDICARE, SELFPAY ==
[2022-03-03 13:58] LABS: Anion Gap 12 (5-15); BUN 20 mg/dL (7-18); BUN/Creat Ratio 12.4 RATIO (10-20); Calcium,Total 9.7 mg/dL (8.5-10.1); Chloride 101 mmol/L (98-107); Creatinine, Serum 1.61 mg/dL (0.70-1.30); EST Glomerular Filtration Rate 44 mL/min (>60); Est Glom Filt Rate - Afr Amer 53 mL/min (>60); Glucose 182 mg/dL (74-106); Iron 215 ug/dL (65-175); Iron Binding Capacity,Total 430 ug/dL (250-450); Potassium 4.2 mmol/L (3.5-5.1); Sodium Level 143 mmol/L (136-145)
== END | disposition home or self-care (01) ==
LOC: LAB 13:20
PROVIDERS: PCP Internal Medicine; Referring Provider Internal Medicine; Visit Provider Internal Medicine
DX: E11.22 Type 2 diabetes mellitus with diabetic chronic kidney disease (principal); E11.65 Type 2 diabetes mellitus with hyperglycemia; Z79.4 Long term (current) use of insulin; N18.31 Chronic kidney disease, stage 3a; D50.9 Iron deficiency anemia, unspecified
CPT/HCPCS: 36415; 80048; 83540; 83550

== ENCOUNTER → 2022-09-07 | Outpatient (CLI) | payer MEDICARE, SELFPAY ==
--- NOTE | 2022-09-07 10:24 | RAD_ITS ---
INDICATION: SHOULDER PAIN EXAMINATION/TECHNIQUE: X-RAY - RIGHT XR Shoulder Min 2 Views 4 VIEWS COMPARISON: 01/08/2018. FINDINGS: No acute fracture or dislocation. Mild acromioclavicular arthrosis. Minimal spurring of the glenoid process and humeral head. Joint spaces are otherwise well-maintained. Normal alignment. Soft tissues are unremarkable. No radiopaque foreign body or soft tissue gas. RAD/Shoulder min 2 Views IMPRESSION: No acute findings. Electronically Signed: Shari Shetty MD at 21:10 EDT Reading Location ID and State: [id number] / Tel , Service support ,
--- NOTE | 2022-09-07 10:24 | RAD_ITS ---
INDICATION: SHOULDER PAIN EXAMINATION/TECHNIQUE: X-RAY - LEFT XR Shoulder Min 2 Views 4 VIEWS COMPARISON: None. FINDINGS: Quality: Slightly limited due to motion. No acute fracture or dislocation. Widening of the fourth intercostal space which may reflect prior surgery or trauma. No destructive bone changes. Acromioclavicular osteoarthrosis. Joint spaces are otherwise well-maintained. Normal alignment. Soft tissues are unremarkable. No radiopaque foreign body or soft tissue gas. RAD/Shoulder min 2 Views IMPRESSION: No acute findings. Electronically Signed: Shari Shetty MD at 21:14 EDT Reading Location ID and State: [id number] / Tel , Service support ,
== END | disposition home or self-care (01) ==
LOC: RAD 10:23
PROVIDERS: PCP Internal Medicine; Referring Provider Anesthesiology Pain Medicine; Visit Provider Anesthesiology Pain Medicine
DX: M19.2 Secondary osteoarthritis of other joints (principal); M25.511 Pain in right shoulder; M25.512 Pain in left shoulder
CPT/HCPCS: 73030

== ENCOUNTER → 2022-09-28 | Outpatient (CLI) | payer MEDICARE, SELFPAY ==
[2022-09-28 16:38] LABS: Absolute Lymphocyte Count 1.75 X10^3/uL (0.83-4.51); Basophil# 0.05 X10^3/uL; Basophil% 0.7 % (0-1); Eosinophil# 0.26 X10^3/uL; Eosinophils% 3.8 % (0-5); Hemoglobin 12.9 g/dL (13.0-16.5); Lymphocyte # 1.75 X10^3/ul (0.83-4.51); Lymphocyte % 25.8 % (19-41); Mean Corp Hgb Conc 31.5 g/dL (32-36); Mean Corpuscular Hgb 29.8 pg (27.0-32.0); Mean Corpuscular Volume 94.7 fL (80-94); Mean Platelet Vol. 9.2 fl (6.2-12.0); Monocyte# 0.72 X10^3/uL; Monocyte% 10.6 % (0-10); NRBC Flagged by Analyzer 0 % (0-5); Neutrophil # 3.96 X10^3/uL (2.7-7.7); Neutrophil % 58.5 % (47-70); Platelet Count 276 K/mm3 (150-450); RBC Distribution Width CV 15.9 % (11.6-14.6); RBC Distribution Width SD 55.9 fl (35.1-43.9); Red Blood Count 4.33 M/mm3 (4.6-6.2); White Blood Count 6.8 K/mm3 (4.4-11.0)
[2022-09-28 17:08] LABS: D-Dimer Quantitative (DVT/PE) 0.33 FEU/ug/m (0.27-0.49)
[2022-09-28 17:16] LABS: Hemoglobin A1c 6.3 % (3.8-5.6)
[2022-09-28 17:33] LABS: ALB/GLOB Ratio 1.2 RATIO (0.9-2.4); AST(SGOT) 20 U/L (15-37); Alanine Aminotransfer ALT/SGPT 10 U/L (16-61); Albumin, Serum 3.7 g/dL (3.2-5.0); Alkaline Phosphatase 28 U/L (45-117); Anion Gap 5 (5-15); BUN 23 mg/dL (7-18); BUN/Creat Ratio 14.7 RATIO (10-20); Calcium,Total 9.3 mg/dL (8.5-10.1); Chloride 103 mmol/L (98-107); Cholesterol 152 mg/dL (200); Creatinine, Serum 1.56 mg/dL (0.70-1.30); EST Glomerular Filtration Rate 45 mL/min (>60); Est Glom Filt Rate - Afr Amer 55 mL/min (>60); Free T3 2.1 pg/mL (2.18-3.98); Globulin 3.2 g/dL (2.2-4.2); Glucose 61 mg/dL (74-106); High Density Lipoprotein 57 mg/dL; Potassium 4.2 mmol/L (3.5-5.1); Protein, Total 6.9 g/dL (6.4-8.2); Sodium Level 137 mmol/L (136-145); T4 Free Direct 0.94 ng/dL (0.76-1.46); Thyroid Stim Hormone (TSH) 2.34 uIU/mL (0.358-3.74); Triglycerides 150 mg/dL; Very Low Density Lipoprotein 30 mg/dL (5-40)
== END | disposition home or self-care (01) ==
LOC: LAB 15:42
PROVIDERS: PCP Internal Medicine; Referring Provider Internal Medicine; Visit Provider Internal Medicine
DX: E78.5 Hyperlipidemia, unspecified (principal); I42.9 Cardiomyopathy, unspecified; E11.22 Type 2 diabetes mellitus with diabetic chronic kidney disease; E11.49 Type 2 diabetes mellitus with other diabetic neurological complication; Z68.41 Body mass index [BMI] 40.0-44.9, adult; N18.30 Chronic kidney disease, stage 3 unspecified; E53.8 Deficiency of other specified B group vitamins; E66.9 Obesity, unspecified; G62.9 Polyneuropathy, unspecified; I25.10 Atherosclerotic heart disease of native coronary artery without angina pectoris; G47.33 Obstructive sleep apnea (adult) (pediatric); M79.89 Other specified soft tissue disorders; Z13.220 Encounter for screening for lipoid disorders; I12.9 Hypertensive chronic kidney disease with stage 1 through stage 4 chronic kidney disease, or unspecified chronic kidney disease
CPT/HCPCS: 36415; 80053; 80061; 83036; 83735; 84439; 84443; 84481; 85025; 85379

== ENCOUNTER → 2022-10-05 | Outpatient (CLI) | payer MEDICARE, SELFPAY ==
--- NOTE | 2022-10-05 10:00 | RAD_ITS ---
INDICATION: SPONDYLOSIS EXAMINATION/TECHNIQUE: X-RAY - XR Spine Cervical 2 or 3 Views COMPARISON: 05/20/2021 FINDINGS: VERTEBRAE: Preserved vertebral body height. No acute fracture. Stable minimal spondylolisthesis at C2-3. DISCS: Stable diffuse degenerative disc space loss with osteophytic osteophytes from C3-4 through C6-7. aces are maintained. NECK SOFT TISSUES: No prevertebral soft tissue widening. LUNG APICES: Clear. RAD/Cerv Spine 2 or 3 Views IMPRESSION: Stable diffuse degenerative disc disease and cervical spondylosis without acute bony abnormality.. Electronically Signed: Sukh Whitlock MD at 18:34 EDT ,
== END | disposition home or self-care (01) ==
PROVIDERS: PCP Internal Medicine; Referring Provider Anesthesiology Pain Medicine; Visit Provider Anesthesiology Pain Medicine
DX: M47.22 Other spondylosis with radiculopathy, cervical region (principal)
CPT/HCPCS: 72040

== ENCOUNTER 2022-12-09 13:00 | Outpatient (RCR) | payer MEDICARE, SELFPAY ==
--- NOTE | 2022-10-24 17:51 | HP.PTEVAL_ITS ---
Patient's Visit Information DARREN REDDY is a 87 year old M referred to Physical Therapy by Dr. Rich Padgett MD with a diagnosis of Parkinson's disease, Cardiomyopathy, low back pain and abnormal gait. Date of Evaluation: 10/19/22 Physical Therapist: Kalia Hendrickson DPT - Visit Plan Frequency: 2x /Week Duration: 6 Weeks Plan: LE strengthening, balance, per PT. LLE weaker than RLE - Subjective Pt. is here today for his initial evaluation with diagnosis of Parkinson's disease, Cardiomyopathy, low back pain and abnormal gait. Pt. reports a gradual digression in LE strength and general mobility. He has had 3 falls in the last few months. He reports that his L leg just gives way, like it has no strength, which is what has caused him to fall. He tends to stay at home. He does drive, but tends to not go in stores due to higher levels of fatigue with ambulation. Pt. reports no N/T in either LE, no pain in either LE. He did report having issues with his LLE including pain prior to his lumbar fusion, which was ~15 ye ars ago. Pt. is taking his PD meds with good tolerance. He is does walk with a rollator in his home and a FWW for community ambulation. He is hopeful to increase his leg strength and his endurance to reduce his risk for falls and increase his general mobility. - Pain Lumbar spine Pain Intensity (Out of 10): 3 Pain Intensity Range: 1, 4 Comment: Groin area - Objective POSTURE: Pt. Has decreased lumbar lordosis, wide JUHI in stance, slight FH posture, sway back like posture. PALPATION: Pt. has no pain with palpation of BLEs. Pt. has mild tenderness with palpation of lumbar erector spinae. NEURO: Pt. has normal DTR of BLEs. Pt. is able to rise on heels and toes without issues. ROM: Pt. has fairly normal ROM of BLEs. Pt. has tightness in his lumbar spine: flexion mod loss, exte mod loss, SB mod loss/ea. direction, rotation mod loss bilat. MMT: RLE: ankle 5/5 throughout; knee: ext 5-/5, flexion, 5-/5; hip: flexion 4/5, abd 4/5, ext 4/5. LLE: ankle 5-/5 throughout; knee: 4/5, throughout; hip: flexion 4-/5 abd 4-/5, ext 4/5. Core strength: poor. GAIT: Pt. ambulates with FWW with decent control, but heavily uses AD. Pt. had increased lateral sway with gait without AD. STAIRS: Pt. is able to complete with step to pattern with 2 HR, but fatigues with attempt. - Balance/Special Test Scores Lower Extremity Functional Score: 26 TUG Test Time Seconds: 39.1 30 Second Chair Rise Test Seconds: 8 - Goals Goal 1:: LTG: Pt. to be I with HEP. Goal Time Frame: 2-4 Weeks Goal 2:: LTG: Pt. to have increased BLE strength by 1/2 grade throughout. Goal Time Frame: 4-6 Weeks Goal 3:: LTG: Pt. to have improved TUG time to less than 15sec without AD. Goal Time Frame: 4-6 Weeks Goal 4:: LTG: Pt. to report no occurrences of LLE giving out on him during standing or walking. Goal Time Frame: 4-6 Weeks Goal 5:: LTG: Pt. complete 6 MWT without increase in symptoms. Goal Time Frame: 4-6 Weeks - Rehabilitation Potential Physical Therapy Diagnosis: Pt. has signs and symptoms consistent with Parkinson's disease, Cardiomyopathy, low back pain and abnormal gait. Pt. has marked LLE weakness resulting in imbalance and difficulty walking, I would like to work on BLE strengthening, L more than R and progress balance in order to reduce risk for future falls. Rehabilitation Potential: Good - Anticipated Interventions Patient/Client Instruction: Educate patient on: Condition, Plan of Care, Risk Factors, Benefits of Fitness Program For the Purpose of:: To foster healthy habits, To improve decision making, To facilitate caregiver knowledge, To improve self management Therapeutic Exercise to Include: Strength training, Power training, Balance training, Coordination, Body mechanics, Postural training, Flexibilty training, Gait and locomotor training, Dynamic Lumbar Stabilization For the Purpose of:: To decrease pain, To increase ROM, To improve nutrient delivery to tissue, To increase oxygenation perfusion, To improve muscle per formance and motor function, To increase tolerance to activity/condition/position, To decrease level of supervision to perform tasks, To improve ability of physical actions for home/community/work/leisure, To improve gait and locomotor functions, To improve health of tissue, To decrease soft tissue restriction, To increase flexibility/ROM, To improve balance Thank you for the opportunity to evaluate your patient. For Medicare and Medicare HMO plans, please review the plan of care and approve it. It will need to be FAXED BACK to us at [phone] for Medicare purposes. For Medicare only, by signing this I certify the plan of care. Please let me know if there are questions or concerns regarding this plan of care. Physician Signature: Date:
--- NOTE | 2022-11-11 12:32 | HP.PTEVAL2_ITS ---
Patient's Visit Information DARREN REDDY is a 87 year old M referred to Physical Therapy by Dr. Rich Padgett MD with a diagnosis of L shoulder pain. Date of Evaluation: 11/11/22 Physical Therapist: Mark Aggarwal, PT, ATC - Visit Plan Frequency: 2-3x /Week Duration: 4-6 Weeks Plan: L rot cuff strengthening, scap stab ex's, UBE, and HEP - Subjective Subjective: Pt reports he has had R shoulder pain for greater than 2 weeks. Pt reports he attempted to lift a hanging flower off a rack for his on mothers day when he experienced severe pain and felt something let go in his L shoulder. Pt reports he went to his doctor that recommended PT at this time. Pt reports he has injured his L shoulder in the past which he had rehab for and the pain went away. Pt is R hand dominant. No tingling or numbness in L UE. Pt reports no sleep difficulty at this time secondary to pain. Pt has not had any diagnostic tests performed at this time. Pt reports he is not able to lift his arm over his head at this time secondary to pain. Pt notes this makes it hard for him to get dressed or put things away in his cabinets. 3/10 pain at rest, 7/10 pain at worst. - Pain L shoulder Intensity: 3 Pain Intensity Range: 7 - Objective Objective: Neuro: B UE sensation is WNL to light touch. B bicipital reflex= 1/3. Palpation: Pt is very sore along the supraspinatus muscle region. No obvious deformity at this time. ROM: R shoulder flex= 120, abd= 70, IR= WNL, ER= 0; L shoulder flex= 80, abd= 85, IR= WNL, ER= 0 degrees. MMT: R shoulder flex= 2, abd= 5, IR= 12, ER= 6 #F; L shoulder flex= 5, abd= 11, IR= 11, ER= 7 #F. Special tests: - Goals Goal 1:: Decrease L shoulder pain x 50% to aid with IADL's Goal Time Frame: 4-6 Weeks Goal 2:: Increase L shoulder strength x 5#F throughout to aid with normal daily activities Goal Time Frame: 4-6 Weeks Goal 3:: I with HEP Goal Time Frame: 4-6 Weeks - Rehabilitation Potential Physical Therapy Diagnosis: Pt has L shoulder pain, weakness, and limited ROM secondary to rot cuff pathology Rehabilitation Potential: Good - Anticipated Interventions Patient/Client Instruction: Educate patient on: Condition, Plan of Care For the Purpose of:: To improve self management Therapeutic Exercise to Include: Strength training, Endurance training, Active ROM, Scapular Strength/Stabilization For the Purpose of:: To decrease pain, To increase ROM, To improve muscle performance and motor function Cryotherapy (ice pack, ice massage): Yes For the Purpose of:: To decrease pain Thank you for the opportunity to evaluate your patient. For Medicare and Medicare HMO plans, please review the plan of care and approve it. It will need to be FAXED BACK to us at [phone] for Medicare purposes. For Medicare only, by signing this I certify the plan of care. Please let me know if there are questions or concerns regarding this plan of care. Physician S ignature: Date:
--- NOTE | 2022-11-18 11:52 | HP.PTREVAL ---
Dr. Rich Padgett MD, It has been my pleasure to treat DARREN REDDY over the last 9 visits for Parkinson's disease, Cardiomyopathy, low back pain and abnormal gait. Please see the progress note below for an update on the physical therapy plan of care! Subjective: Pt. reports overall back pain is not too bad today. He does report having difficulty with his balance. Objective/Function: MMT: Pt. has good strength through his distal LEs, ankle 5/5 throughout; R knee: ext 34lbs, flexion 24#; L knee: ext 31lbs, flexion 21#. L hip flexion 5#, R hip flexion 15#. TUG: with FWW 12.8sec, without AD 11:38sec. 6 MWT: Pt. walked for 2 min 43 sec., 274feet- fatigue as limiting factor. Plan Plan: I would like Darren to continue with his strengthening and progressive endurance. Add in static/dynamic balance and progressive walking as tolerated. He continues to be the weakest with his L hip flexion in comparison to his R side. Balance/Gait/Functional tests - Balance/Special Test Scores Lower Extremity Functional Score: 26 Quick DASH Score: 36.3625 TUG Test Time Seconds: 12.8 Tug Test: <20 sec.=mostly independent 30 Second Chair Rise Test Seconds: 8 6 Minute Walk Test: 6 MWT: Pt. walked for 2 min 43 sec., 274feet- fatigue as limiting factor. Goals Goal 1:: LTG: Pt. to be I with HEP. Goal Time Frame: 2-4 Weeks Goal 2:: LTG: Pt. to have increased BLE strength by 1/2 grade throughout. Goal Time Frame: 4-6 Weeks Goal Progress: Progressing Goal 3:: LTG: Pt. to have improved TUG time to less than 15sec without AD. Goal Time Frame: 4-6 Weeks Goal Progress: Progressing Goal 4:: LTG: Pt. to report no occurrences of LLE giving out on him during standing or walking. Goal Time Frame: 4-6 Weeks Goal Progress: Goal Met Goal 5:: LTG: Pt. complete 6 MWT without increase in symptoms. Goal Time Frame: 4-6 Weeks Goal Progress: Progressing Anticipated Interventions Patient/Client Instruction: Educate patient on: Condition, Plan of Care, Risk Factors, Benefits of Fitness Program For the Purpose of:: To foster healthy habits, To improve decision making, To facilitate caregiver knowledge, To improve self management Therapeutic Exercise to Include: Strength training, Power training, Balance training, Coordination, Body mechanics, Postural training, Flexibilty training, Gait and locomotor training, Dynamic Lumbar Stabilization For the Purpose of:: To decrease pain, To increase ROM, To improve nutrient delivery to tissue, To increase oxygenation perfusion, To improve muscle performance and motor function, To increase tolerance to activity/condition/position, To decrease level of supervision to perform tasks, To improve ability of physical actions for home/community/work/leisure, To improve gait and locomotor functions, To improve health of tissue, To decrease soft tissue restriction, To increase flexibility/ROM, To improve balance Please do not hesitate to contact me at [phone] by phone or if you have questions or concerns regarding this new plan of care! Sincerely, JULIO CESAR HollyT
--- NOTE | 2022-12-09 13:32 | HP.PTDCSUM ---
It has been my pleasure to treat DARREN REDDY referred by Dr. Rich Padgett MD, with the diagnosis of Parkinson's disease, Cardiomyopathy, low back pain and abnormal gait for a total of 15 visit(s). Discharge Date: 12/09/22 Please see the following information for a summary of their discharge status. Subjective: No pain in LEs today, no pain in lumbar spine as well. Pt. reports being HEP compliant. He uses FWW in all situations. Lumbar spine Pain Intensity (Out of 10): 0 L SH Pain Intensity (Out of 10): 3 hips Pain Intensity (Out of 10): 0 % Improvement: 80 Objective/Function: ROM: Pt. has decent ROM in BLEs, tightness in B HS. MMT: Pt. has good strength in BLEs, except a slight increased weakness in his L ankle DF 4/5. Core strength fair. GAIT: pt. ambulates well and shari with FWW. Not as shari without AD. At this point I recommend that he continue to use of FWW for safety. TU.2 sec. sit to stand rep test 15 reps without use of UEs. Goal 1:: LTG: Pt. to be I with HEP. Goal Progress: Goal Met Goal 2:: LTG: Pt. to have increased BLE strength by 1/2 grade throughout. Goal Progress: Goal Met Goal 3:: LTG: Pt. to have improved TUG time to less than 15sec without AD. Goal Progress: Goal Met Goal 4:: LTG: Pt. to report no occurrences of LLE giving out on him during standing or walking. Goal Progress: Goal Met Goal 5:: LTG: Pt. complete 6 MWT without increase in symptoms. Goal Progress: Progressing Plan: Pt. to be DC from PT at this point in time. Discharge Comments: Pt. to be DC from PT at this point in time. He has exsercise for his balance and is I with at this point in time. Pt. to be DC to HEP. If there are questions or concerns regarding this patient's physical therapy, please feel free to call me at [phone]. Thank you for the referral of this patient. Sincerely, Kalia Lopez Sipos, DPT Balance/Gait/Functional tests - Balance/Special Test Scores CATSIB Score (Max score 120 seconds): 106 Lower Extremity Functional Score: 34 Quick DASH Score: 36.3625 TUG Test Time Seconds: 11.2 Tug Test: 20-30sec.=variable mobility 30 Second Chair Rise Test Seconds: 15 6 Minute Walk Test: Pt. walked for 4min 59 sec, 704 feet. Much better than previous. General fatigue as limiting factor.
--- NOTE | 2022-12-09 14:11 | HP.PTDCS(2) ---
It has been my pleasure to treat DARREN REDDY referred by Dr. Rich Padgett MD, with the diagnosis of L shoulder pain for a total of 8 visit(s). Discharge Date: Please see the following information for a summary of their discharge status. Subjective: I dont have any pain today % Improvement: 80 Objective/Function/Assessment: L shoulder pain is 0/10. Pt is I with HEP. L shoulder MMT: flex= 4, abd= 15, ER= 11, IR= 20 #. Rx goals achieved Patient Goals: Improve Mobility, Improve Function, Decrease Pain, Improve ROM Goal 1:: Decrease L shoulder pain x 50% to aid with IADL's Goal Progress: Goal Met Goal 2:: Increase L shoulder strength x 5#F throughout to aid with normal daily activities Goal Progress: Goal Met Goal 3:: I with HEP Goal Progress: Goal Met Plan: L rot cuff strengthening, scap stab ex's, UBE, and HEP If there are questions or concerns regarding this patient's physical therapy, please feel free to call me at [phone]. Thank you for the referral of this patient. Sincerely, Mark Aggarwal, PT, ATC
== END 2022-12-09 19:00 | disposition home or self-care (01) ==
LOC: PT 13:00
PROVIDERS: PCP Internal Medicine; Referring Provider Psychiatry & Neurology Neurology; Visit Provider Psychiatry & Neurology Neurology
DX: G20 Parkinson's disease (principal); M25.512 Pain in left shoulder; I42.9 Cardiomyopathy, unspecified; M54.50 Low back pain, unspecified; R26.9 Unspecified abnormalities of gait and mobility
CPT/HCPCS: 97110; 97161; 97164

== ENCOUNTER → 2023-03-18 | Outpatient (CLI) | payer MEDICARE, SELFPAY ==
[2023-03-18 10:15] LABS: Absolute Lymphocyte Count 1.36 X10^3/uL (0.83-4.51); Absolute Neutrophil Count 3.6 X10^3/uL (2.0-7.7); Basophil# 0.04 X10^3/uL; Basophil% 0.7 % (0-1); Eosinophil# 0.07 X10^3/uL; Eosinophils% 1.2 % (0-5); Hematocrit 39.2 % (40-54); Hemoglobin 12.9 g/dL (13.0-16.5); Lymphocyte # 1.36 X10^3/ul (0.83-4.51); Lymphocyte % 23.2 % (19-41); Mean Corp Hgb Conc 32.9 g/dL (32-36); Mean Corpuscular Hgb 29.8 pg (27.0-32.0); Mean Corpuscular Volume 90.5 fL (80-94); Mean Platelet Vol. 9.4 fl (6.2-12.0); Monocyte# 0.71 X10^3/uL; Monocyte% 12.1 % (0-10); NRBC Flagged by Analyzer 0 % (0-5); Neutrophil # 3.59 X10^3/uL (2.7-7.7); Neutrophil % 61.4 % (47-70); Platelet Count 278 K/mm3 (150-450); RBC Distribution Width CV 14.9 % (11.6-14.6); RBC Distribution Width SD 49.9 fl (35.1-43.9); Red Blood Count 4.33 M/mm3 (4.6-6.2); White Blood Count 5.9 K/mm3 (4.4-11.0)
[2023-03-18 10:52] LABS: Hemoglobin A1c 6.3 % (3.8-5.6)
[2023-03-18 11:12] LABS: ALB/GLOB Ratio 1.3 RATIO (0.9-2.4); AST(SGOT) 11 U/L (15-37); Alanine Aminotransfer ALT/SGPT 16 U/L (16-61); Albumin, Serum 3.8 g/dL (3.2-5.0); Alkaline Phosphatase 62 U/L (45-117); Anion Gap 7 (5-15); BUN 26 mg/dL (7-18); BUN/Creat Ratio 15.4 RATIO (10-20); Calcium,Total 9.7 mg/dL (8.5-10.1); Chloride 104 mmol/L (98-107); Cholesterol 159 mg/dL (200); Creatinine, Serum 1.69 mg/dL (0.70-1.30); EST Glomerular Filtration Rate 41 mL/min (>60); Est Glom Filt Rate - Afr Amer 50 mL/min (>60); Free T3 1.8 pg/mL (2.18-3.98); Glucose 118 mg/dL (74-106); High Density Lipoprotein 48 mg/dL; PSA,Total - Annual Screen 1.17 ng/mL (0.00-4.00); Potassium 4.4 mmol/L (3.5-5.1); Protein, Total 6.8 g/dL (6.4-8.2); Sodium Level 137 mmol/L (136-145); T4 Free Direct 0.97 ng/dL (0.76-1.46); Thyroid Stim Hormone (TSH) 3.26 uIU/mL (0.358-3.74); Triglycerides 161 mg/dL; Very Low Density Lipoprotein 32 mg/dL (5-40)
== END | disposition home or self-care (01) ==
LOC: LAB 08:45
PROVIDERS: PCP Internal Medicine; Referring Provider Internal Medicine; Visit Provider Internal Medicine
DX: I12.9 Hypertensive chronic kidney disease with stage 1 through stage 4 chronic kidney disease, or unspecified chronic kidney disease (principal); G20 Parkinson's disease; E11.22 Type 2 diabetes mellitus with diabetic chronic kidney disease; E11.42 Type 2 diabetes mellitus with diabetic polyneuropathy; Z68.41 Body mass index [BMI] 40.0-44.9, adult; N18.30 Chronic kidney disease, stage 3 unspecified; E66.9 Obesity, unspecified; E53.8 Deficiency of other specified B group vitamins; G47.33 Obstructive sleep apnea (adult) (pediatric); E78.5 Hyperlipidemia, unspecified; Z12.5 Encounter for screening for malignant neoplasm of prostate
CPT/HCPCS: 36415; 80053; 80061; 82306; 83036; 84153; 84439; 84443; 84481; 85025; G0103

== ENCOUNTER 2023-07-16 14:55 | Emergency (ER) | payer MEDICARE, SELFPAY ==
[2023-07-16] VITALS (7 sets, daily range): BP systolic 133–173; BP diastolic 80–92; PULSE 82–99; RESP 13–22; TEMP 36–36.7; O2SAT 94–98; BMI 40.2
[2023-07-16] MEDS: Albuterol 2.5 MG/3 ML VIAL.NEB. INHALATION (15:20)
[2023-07-16] MEDS: Ipratropium/Albuterol Sulfate 3 ML AMPUL.NEB INHALATION (15:20)
--- NOTE | 2023-07-16 15:22 | EX.ED.DYSGE1 ---
HPI <DENISE Sawant - Last Filed: 07/16/23 19:28> History of Present Illness Chief Complaint: Shortness of Breath Narrative Narrative: Patient is AN 87-year-old male with history of Parkinson disease, hypertension, hyperlipidemia, obesity, type 2 diabetes who presents to the emergency department for sudden onset of shortness of breath. patient states that he was getting ready for a nap, he was in bed when he felt all of a sudden shortness of breath. Patient states he was breathing fast and was unable to take a deep breath in. Patient denies any history of blood clots in legs or lungs, denies any chest pain. Patient states he did have a cough last week however he thought he was over it. He states he was hot however did not have any fever or chills. PFS <DENISE Sawant - Last Filed: 07/16/23 19:28> [facility] Medical History Acute otitis media, left Anemia Appendicitis Atherosclerotic heart disease of [place] coronary artery without angina pectoris Benign prostatic hypertrophy BMI 40.0-44.9, adult Body mass index (BMI) 40.0-44.9, adult BPH (benign prostatic hyperplasia) Chest pain CKD (chronic kidney disease) stage 3, GFR 30-59 ml/min Cough Debility Diabetes mellitus type 2 in obese 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 Dyspnea Essential (primary) hypertension GERD (gastroesophageal reflux disease) GERD (gastroesophageal reflux disease) Hiatal hernia History of CVA (cerebrovascular accident) HLD (hyperlipidemia) Hypothyroidism Iron deficiency anemia 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 Nephrolithiasis Nonrheumatic tricuspid (valve) insufficiency Obesity Obesity DANYELL (obstructive sleep apnea) Osteoarthritis Palpitations Premature ventricular contractions Right bundle branch block (RBBB) with left anterior fascicular block Right flank pain Shortness of breath Stroke/cerebrovascular accident Syncope and collapse Upper respiratory infection Vocal cord dysfunction Home Medications cholecalciferol (vitamin D3) 125 mcg (5,000 unit) capsule 5,000 unit PO DAILY vitamin 06/29/15 [History Last Taken 02/10/20] finasteride 5 mg tablet 5 mg PO DAILY prostate 06/29/15 [History Last Taken 10/29/21] aspirin 81 mg tablet,delayed release 81 mg PO DAILY heart health 07/24/15 [History Last Taken 10/29/21] acetaminophen 500 mg tablet 1,000 mg (2 x 500 mg) PO Q6H PRN PRN Pain Score 1-302/19/20 [Rx Last Taken Unknown] Elizabeth Figueroa #1 ea 10/14/20 [Rx Last Taken Unknown] vitamins A,C,B-bcyp-hulbrf 2,148 mcg-113 mg-45 mg-17.4 mg tablet (PreserVision AREDS) 2 tab PO DAILY 12/17/20 [History Last Taken Unknown] pen needle, diabetic 32 gauge x 1/4 #100 ea 12/25/20 [Rx Last Taken Unknown] clopidogrel 75 mg tablet 75 mg PO DAILY Cholestrol #90 tabs 09/05/22 [Rx Last Taken Unknown] amlodipine 5 mg tablet 5 mg PO DAILY BP #90 tabs 09/26/22 [Rx Last Taken Unknown] trazodone 50 mg tablet 25 mg (1/2 x 50 mg) PO QHS PRN sleep #30 tabs 09/28/22 [Rx Last Taken Unknown] pravastatin 20 mg tablet 20 mg PO DAILY cholesterol #90 tabs 10/12/22 [Rx Last Taken Unknown] metformin 1,000 mg tablet 1,000 mg PO BIDCM diabetes #180 tabs 12/26/22 [Rx Last Taken Unknown] levothyroxine 50 mcg tablet 50 mcg PO DAILY thyroid #90 tabs 02/07/23 [Rx Last Taken Unknown] carbidopa 25 mg-levodopa 100 mg tablet (Sinemet) See Rx Instructions .Route .COMPLEX #150 tabs 02/09/23 [Rx Last Taken Unknown] furosemide 40 mg tablet 40 mg PO DAILY Fluid retention #90 tabs 02/28/23 [Rx Last Taken Unknown] ranolazine 500 mg tablet,extended release,12 hr 500 mg PO BID #180 tabs 03/06/23 [Rx Last Taken Unknown] escitalopram oxalate 10 mg tablet 10 mg PO DAILY #90 tabs 03/08/23 [Rx Last Taken Unknown] insulin human U-100 NPH-regulr 70-30 mix 100 unit/mL subcutaneous susp 50 unit subcut BID diabetes 03/14/23 [History Last Taken Unknown] pantoprazole 40 mg tablet,delayed release See Rx Instructions .Route .COMPLEX #90 tabs 03/15/23 [Rx Last Taken Unknown] isosorbide mononitrate 30 mg tablet,extended release 24 hr 30 mg PO DAILY Ask #90 tabs 04/12/23 [Rx Last Taken Unknown] Allergy/AdvReac Type Severity Reaction Status Date / Time lisinopril Allergy Mild Cough Verified 07/16/23 14:57 losartan AdvReac Intermediate Jitters Verified 07/16/23 14:57 metoprolol AdvReac Intermediate Jitters Verified 07/16/23 14:57 pioglitazone HCl [From Actos] AdvReac Mild Upset Verified 07/16/23 14:57 Stomach Family History Mother CAD (coronary artery disease) CVA (cerebral vascular accident) Brother CAD (coronary artery disease) Myocardial infarction Diabetes Heart disease Daughter Asthma Father Cancer bone cancer Sister Breast cancer Asthma Diabetes Heart disease Sister Cardiomyopathy Surgical History History of appendectomy History of back surgery History of coronary artery stent placement (07/01/15) History of left heart catheterization (11/01/21) History of lymph node biopsy History of right and left heart catheterization (07/02/18) Social History Smoking Status: Former smoker pack-years: 2 how long ago did patient quit smokin+ years ago alcohol intake: former substance use type: does not use caffeine: Yes Type: coffee Number of servings: 2 what type of physical activity do you participate in: none seatbelt use: always do you feel safe at home: Yes ROS <DENISE Sawant - Last Filed: 07/16/23 19:28> ROS ED ROS Narrative Constitutional: Negative for fever, chills, weight loss, weakness Eyes: Negative for vision loss, vision change, double vision ENT: Negative for any sore throat, ear pain, congestion Cardiovascular: Negative for any chest pain, tightness, palpitations Respiratory: Negative for any cough, sputum production, hemoptysis, dyspnea on exertion, orthopnea. Positive for dyspnea Gastrointestinal: Negative for any abdominal pain, nausea, vomiting, diarrhea, constipation, blood in stool, blood in vomit : Negative for any urinary frequency, dysuria, retention, blood in urine Muscle skeletal: Negative for any myalgias, arthralgias, neck pain, back pain Neurological: Negative for any headache, syncope, paresthesias, dizziness Skin: Negative for any rashes, lumps, itching, abrasions, lacerations Psychiatric: Negative for any depression, anxiety, stress, suicidal ideation, homicidal ideation Hematologic: Negative for any easy bruising, excessive bruising, easy bleeding Allergies: Negative for any eczema, hives, rash EXAM <Junior KhalilDENISE - Last Filed: 07/16/23 19:28> Physical Exam Narrative Exam Narrative: Vital signs reviewed. Patient is tachypneic, he is alert and orient x 3, slight conversational dyspnea. However patient heart rate is 91 bpm, 97% on room air. HEET: Head normocephalic atraumatic, TMs clear bilaterally. Posterior pharynx is clear, moist mucous membranes. Nares clear bilaterally. Neck: Supple with no lymphadenopathy or tenderness. No signs of meningismus. Cardiac: Regular rate and rhythm no murmurs gallops or rubs, equal peripheral pulses bilaterally. Respiratory: Lungs clear to auscultation bilaterally slight expiratory wheeze the left lower lobe. No chest tenderness. Abdomen: Soft, nontender, nondistended. No abdominal bruit or pulsatile masses. No hepatosplenomegaly Extremities: 1+ edema to bilateral lower extremities, no evidence of any cellulitis, no signs of gross trauma or deformity. Active full range of motion of all extremities. Neuro: Cranial nerves II through XII intact, no focal neurological deficits. Skin: Clean dry and intact with no rash, purpura, petechiae, vesicles or pustules. Backs/flank: No CVA tenderness, no midline spinal tenderness, no deformity. Psych: Normal mood and affect. No SI, HI or acute psychosis. Const Vital Signs: 07/16/23 14:57 07/16/23 15:09 07/16/23 15:09 Temperature 96.8 F L Temperature Source Temporal Pulse Rate 99 91 Respiratory Rate 18 13 Respiratory Effort Short of Breath Respiratory Pattern Tachypnea Blood Pressure 133/80 H 153/84 H Blood Pressure Mean 97 107 Pulse Ox 98 96 Oxygen Delivery Method Room Air Room Air Room Air 07/16/23 15:16 07/16/23 15:22 07/16/23 17:31 Temperature Temperature Source Pulse Rate 91 Respiratory Rate 19 H Respiratory Effort Respiratory Pattern Normal Blood Pressure Blood Pressure Mean Pulse Ox 94 Oxygen Delivery Method Room Air Room Air 07/16/23 19:17 07/16/23 19:32 Temperature 98.1 F Temperature Source Pulse Rate 94 82 Respiratory Rate 22 H 16 Respiratory Effort Respiratory Pattern Blood Pressure 173/92 H 146/84 H Blood Pressure Mean 119 104 Pulse Ox 95 95 Oxygen Delivery Method Room Air Positive well nourished and obese Nutritional Appearance: obese <Dr. Saurabh Porter DO - Last Filed: 07/16/23 23:31> Physical Exam Const Vital Signs: 07/16/23 14:57 07/16/23 15:09 07/16/23 15:09 Temperature 96.8 F L Temperature Source Temporal Pulse Rate 99 91 Respiratory Rate 18 13 Respiratory Effort Short of Breath Respiratory Pattern Tachypnea Blood Pressure 133/80 H 153/84 H Blood Pressure Mean 97 107 Pulse Ox 98 96 Oxygen Delivery Method Room Air Room Air Room Air 07/16/23 15:16 07/16/23 15:22 07/16/23 17:31 Temperature Temperature Source Pulse Rate 91 Respiratory Rate 19 H Respiratory Effort Respiratory Pattern Normal Blood Pressure Blood Pressure Mean Pulse Ox 94 Oxygen Delivery Method Room Air Room Air 07/16/23 19:17 07/16/23 19:32 Temperature 98.1 F Temperature Source Pulse Rate 94 82 Respiratory Rate 22 H 16 Respiratory Effort Respiratory Pattern Blood Pressure 173/92 H 146/84 H Blood Pressure Mean 119 104 Pulse Ox 95 95 Oxygen Delivery Method Room Air MDM <DENISE Sawant - Last Filed: 07/16/23 19:28> MDM Lab Data Labs: Laboratory Results - last 24 hr 07/16/23 07/16/23 15:45 18:12 WBC 7.1 RBC 4.32 L Hgb 12.4 L Hct 38.9 L MCV 90.0 MCH 28.7 MCHC 31.9 L RDW Std Deviation 51.0 H RDW Coeff of Perla 15.5 H Plt Count 269 MPV 9.1 Immature Gran % (Auto) 0.600 Neut % (Auto) 67.2 Lymph % (Auto) 18.3 L [place] % (Auto) 9.9 Eos % (Auto) 3.2 Baso % (Auto) 0.8 Absolute Neuts (auto) 4.8 Absolute Lymphs (auto) 1.30 Nucleated RBC % 0 D-Dimer Quant (PE/DVT) 0.61 H* Sodium 138 Potassium 4.6 Chloride 105 Carbon Dioxide 23.0 Anion Gap 10 BUN 31 H Creatinine 2.00 H Estim Creat Clear Calc 29.81 Est GFR (MDRD) Af Amer 41 L Est GFR (MDRD) Non-Af 34 L BUN/Creatinine Ratio 15.5 Glucose 107 H Calcium 10.0 Troponin I High Sens 16 18 B-Natriuretic Peptide 76.2 Radiography Diagnostic Testing: Clinical Impression(s) from Imaging Studies Chest X-Ray 07/16/23 16:15 IMPRESSION: Possible mild left basilar infiltrate/atelectasis. Electronically Signed: Aquilino Zafar DO at 16:32 EST Reading Location ID and State: [facility] / [place] Tel [phone], Service support , EKG Sinus rhythm with PACs: Attestation: I personally reviewed and interpreted this EKG as follows: Interpretation: Sinus Rhythm Comments: Sinus rhythm with premature atrial complexes, rate of 93 bpm, WI interval 144 ms, QRS duration 130 ms, no acute ST elevation, no acute infarct noted. Treatment and Re-Evaluation :: Patient appears to be in no pain, patient slight distress secondary to dyspnea, patient's vital signs are stable. Patient does appear nontoxic. Differential diagnosis includes community-acquired pneumonia, viral syndrome such as COVID-19 or influenza, pulmonary embolus, CHF exacerbation. Patient secondary to his age and history will receive a full cardiac workup with 2 sets of troponins. Patient will receive a chest x-ray, dimer. Patient will be given breathing treatments for expiratory wheezing. Patient will receive a reevaluation. COVID-19/influenza/RSV will be sent. Patient remained stable, patient's chest x-ray was unremarkable. Patient's rapid COVID-19 influenza and RSV was negative. Patient's CBC was unremarkable, patient's hemoglobin was slightly low at 12.4 however this is baseline. Patient's chemistries show slight increase in creatinine at 2.0, in February of this last year was 1.69 this is just a slight increase. Patient's dimer was 0.61, for age-adjusted this is unremarkable and negative. Patient secondary Pono was 18, this is again negative. Patient was 94 to 95% on room air while ambulating. At this time, I spoke with the patient at length, there is no evidence of any ACS, [place], community-acquired pneumonia, viral symptoms, PE. Patient on my reevaluation is comfortable, no distress. Patient feels comfortable going home however patient will return for any worsening symptoms, fever, chills, nausea or vomiting. All questions were answered, patient stable for discharge. <Dr. Saurabh Porter DO - Last Filed: 07/16/23 23:31> MDM History & Record Review Discussion w/independent historian: Patient and Significant other Lab Data Attestation: I reviewed the patient's lab results. Labs: Laboratory Results - last 24 hr 07/16/23 07/16/23 15:45 18:12 WBC 7.1 RBC 4.32 L Hgb 12.4 L Hct 38.9 L MCV 90.0 MCH 28.7 MCHC 31.9 L RDW Std Deviation 51.0 H RDW Coeff of Perla 15.5 H Plt Count 269 MPV 9.1 Immature Gran % (Auto) 0.600 Neut % (Auto) 67.2 Lymph % (Auto) 18.3 L [place] % (Auto) 9.9 Eos % (Auto) 3.2 Baso % (Auto) 0.8 Absolute Neuts (auto) 4.8 Absolute Lymphs (auto) 1.30 Nucleated RBC % 0 D-Dimer Quant (PE/DVT) 0.61 H* Sodium 138 Potassium 4.6 Chloride 105 Carbon Dioxide 23.0 Anion Gap 10 BUN 31 H Creatinine 2.00 H Estim Creat Clear Calc 29.81 Est GFR (MDRD) Af Amer 41 L Est GFR (MDRD) Non-Af 34 L BUN/Creatinine Ratio 15.5 Glucose 107 H Calcium 10.0 Troponin I High Sens 16 18 B-Natriuretic Peptide 76.2 Radiography Diagnostic Testing: Clinical Impression(s) from Imaging Studies Chest X-Ray 07/16/23 16:15 IMPRESSION: Possible mild left basilar infiltrate/atelectasis. Electronically Signed: Aquilino Zafar DO at 16:32 EST Reading Location ID and State: [facility] / [place] Tel [phone], Service support , Treatment and Re-Evaluation :: Patient appears to be in no pain, patient slight distress secondary to dyspnea, patient's vital signs are stable. Patient does appear nontoxic. Differential diagnosis includes community-acquired pneumonia, viral syndrome such as COVID-19 or influenza, pulmonary embolus, CHF exacerbation. Patient secondary to his age and history will receive a full cardiac workup with 2 sets of troponins. Patient will receive a chest x-ray, dimer. Patient will be given breathing treatments for expiratory wheezing. Patient will receive a reevaluation. COVID-19/influenza/RSV will be sent. Patient remained stable, patient's chest x-ray was unremarkable. Patient's rapid COVID-19 influenza and RSV was negative. Patient's CBC was unremarkable, patient's hemoglobin was slightly low at 12.4 however this is baseline. Patient's chemistries show slight increase in creatinine at 2.0, in February of this last year was 1.69 this is just a slight increase. Patient's dimer was 0.61, for age-adjusted this is unremarkable and negative. Patient secondary Pono was 18, this is again negative. Patient was 94 to 95% on room air while ambulating. At this time, I spoke with the patient at length, there is no evidence of any ACS, [place], community-acquired pneumonia, viral symptoms, PE. Patient on my reevaluation is comfortable, no distress. Patient feels comfortable going home however patient will return for any worsening symptoms, fever, chills, nausea or vomiting. All questions were answered, patient stable for discharge. I have personally performed a face to face assessment of the patient and have reviewed the OLGA LIDIA Note. I performed a substantive portion of the visit including all aspects of the following. My portillo findings include: History is 87-year-old male history of coronary artery disease presenting to the emergency room with dyspnea. Patient states he was trying to get to sleep when he suddenly felt short of breath. He notes that he felt sweaty. No vomiting. No chest pain. He states he is concerned about his heart as he has had the maker . He denies any cough or fever. He does not wear home oxygen at home. Exam is lung sounds clear to auscultation. Patient is not hypoxic or requiring supplemental oxygen. He has normal work of breathing. Medical Decison blood work showed an age corrected normal D-dimer. 2 sets of cardiac enzymes are normal. EKG does not show any ischemic changes. My depend interpretation of the chest x-ray is possible atelectatic changes in the left lower lobe. Given that he does not have white count fever or cough I doubt that this is infiltrate. Patient ambulates without hypoxia. He is comfortable going home and in fact would prefer it. His is in agreement. Discharge Plan Triage Chief Complaint: Shortness of Breath ED Midlevel Provider: Junior Khalil ED Provider: Saurabh Porter Dx/Rx/DC Orders Clinical Impression: Acute dyspnea Instructions: ED Dyspnea Prescriptions: No Action PreserVision AREDS 7,160 unit- 113 mg-100 unit tablet 2 tab PO DAILY Rx Instructions: administer with AM and PM meals trazodone 50 mg tablet 25 mg PO QHS PRN (Reason: sleep) Qty: 30 2RF carbidopa-levodopa [Sinemet] 25-100 mg tablet See Rx Instructions .ROUTE .COMPLEX Qty: 150 7RF Rx Instructions: Take 2 tabs orally every morning, 1 tab every mid-day, and 2 tabs every night pantoprazole 40 mg tablet,delayed release (DR/EC) See Rx Instructions .ROUTE .COMPLEX Qty: 90 3RF Dose Instruction: TAKE 1 TABLET BY MOUTH ONCE DAILY FOR REFLUX Rx Instructions: TAKE 1 TABLET BY MOUTH ONCE DAILY FOR REFLUX cholecalciferol (vitamin D3) 5,000 UNIT capsule 5,000 unit PO DAILY Patient Comments: SUPPLIMENT finasteride 5 MG tablet 5 mg PO DAILY Patient Comments: PROSTATE insulin NPH and regular human 100 unit/mL (70-30) suspension 50 unit SC BID Patient Comments: BLOOD SUGAR, PT USES SLIDING SCALE Rx Instructions: 34 units in the AM 28 units in the PM and sliding scale aspirin 81 MG tablet,delayed release (DR/EC) 81 mg PO DAILY acetaminophen 500 MG tablet 1,000 mg PO Q6H PRN PRN (Reason: Pain Score 1-3/10) 0RF (DME) Handi cap Placard See Rx Instructions .Route .MEDSUPPLY Qty: 1 0RF Rx Instructions: difficulty walking short distance. expires in 5 years (DME) pen needle, diabetic 32 gauge x 1/4 needle See Rx Instructions .ROUTE .MEDSUPPLY Qty: 100 2RF Rx Instructions: As directed clopidogrel 75 mg tablet 75 mg PO DAILY Qty: 90 3RF amlodipine 5 mg tablet 5 mg PO DAILY Qty: 90 3RF pravastatin 20 mg tablet 20 mg PO DAILY Qty: 90 3RF metformin 1,000 mg tablet 1,000 mg PO BIDCM Qty: 180 3RF levothyroxine 50 mcg tablet 50 mcg PO DAILY Qty: 90 3RF furosemide 40 mg tablet 40 mg PO DAILY Qty: 90 3RF ranolazine 500 mg tablet extended release 12 hr 500 mg PO BID Qty: 180 3RF escitalopram oxalate 10 mg tablet 10 mg PO DAILY Qty: 90 3RF Rx Instructions: Take 1/2 tablet for 4 days then increase to 1 tablet. isosorbide mononitrate 30 mg tablet extended release 24 hr 30 mg PO DAILY Qty: 90 3RF Primary Care Provider: Marie Maciel Referrals: Marie Maciel MD [Primary Care Provider] - Activity Restrictions/Additional Instructions: Our workup today did not have any significant results. Your creatinine was 2.0, usually around 1.5, ensure that you are maintaining hydration. Please return for any worsening chest pain, shortness of breath, fever or chills. Disposition Disposition: Home, Self Care Discharge Date/Time: 07/16/23 20:00
--- OUTSIDE RECORDS SUMMARY | 2023-07-16 15:55 | XMS RPT_ITS | CCD ---
Author Name Unknown Address [facility] [place] [address] Organization [facility] Care Team Providers Care Exchange Operator Name Role Phone Kamari GUTIÉRREZ, Saurabh Holman Unavailable Allergies Allergy Classification Reported Allergen(s) Allergy Type Date of Onset Reaction(s) Facility (4 sources) pioglitazone Drug Allergy 1 Rash & passes out, Rash [facility] Work Phone: Medications Completed/Discontinued Medications Medication Drug Class(es) Dates Sig (Normalized) Sig (Original) acetaminophen 325 mg / HYDROcodone bitartrate 5 mg oral tablet (4 sources) Opioid Agonist Start: 05-20-2016 End: 05-31-2016 take 1 tablet by mouth once daily as needed NORCO 5-325 MG TABS One tablet by mouth daily as needed HYDROCODONE-ACETA MINOPHEN [id number] Juliann Levine PROGRAM SERVICES ASSISTANT 200 actuat albuterol 0.09 mg/actuat metered dose inhaler (4 sources) beta2-Adrenergic Agonist Start: 10-15-2015 End: 03-21-2016 VENTOLIN HFA 108 (90 Base) MCG/ACT AERS As needed - 90mcg/inh ALBUTEROL SULFATE [id number] David Ashton MD aspirin 81 mg oral tablet (8 sources) Nonsteroidal Anti-inflammatory Drug Start: 07-16-2015 take 1 tablet by mouth once daily ASPIRIN 81 MG TABS One tablet by mouth daily ASPIRIN [id number] Audelia Espinoza PA-C Problems Active Problems Problem Classification Problem Date Documented Da te Episodic/Chronic Coronary atherosclerosis and other heart disease (8 sources) Coronary arteriosclerosis; Translations: [Atherosclerotic heart disease of [place] coronary artery without angina pectoris] Onset: 10-28-2010 Resolved: 07-02-2015 07-02-2015 Chronic Diabetes mellitus without complication (2 sources) Diabetes mellitus; Translations: [Type 2 diabetes mellitus without complications] Onset: 12-31-2013 12-31-2013 Chronic Disorders of lipid metabolism (2 sources) Hyperlipidemia; Translations: [Hyperlipidemia, unspecified] Onset: 06-14-2012 06-14-2012 Chronic Essential hypertension (2 sources) Hypertensive disorder; Translations: [Essential (primary) hypertension] Onset: 06-25-2013 06-25-2013 Chronic Heart valve disorders (2 sources) Nonrheumatic tricuspid (valve) insufficiency; Translations: [Nonrheumatic tricuspid (valve) insufficiency] Onset: 10-15-2015 10-15-2015 Chronic Other nutritional; endocrine; and metabolic disorders (2 sources) Obesity; 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, unspecified] Onset: 02-08-2016 02-09-2016 Chronic [place]-; endo-; and myocarditis; cardiomyopathy (2 sources) 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; Translations: [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] Onset: 10-28-2010 10-28-2010 Chronic Unclassified (8 sources) Body mass index (BMI) 40.0-44.9, adult; Translations: [Body mass index (BMI) 39.0-39.9, adult] Onset: 06-25-2013 Resolved: 07-02-2015 12-04-2014 Chronic Unclassified (4 sources) 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 ; Translations: [Presence of cardiac and vascular implant and graft, unspecified] Onset: 07-02-2015 07-02-2015 Unclassified (2 sources) Long-term drug therapy; Translations: [Other salvage determiner (current) drug therapy] Onset: 10-28-2010 10-28-2010 Past or Other Problems Problem Classification Problem Date Documented Da te Episodic/Chronic Abdominal pain (2 sources) Right flank pain; Translations: [Unspecified abdominal pain] Onset: 05-09-2017 05-09-2017 Episodic Cardiac dysrhythmias (2 sources) Palpitations; Translations: [Palpitations] Onset: 05-29-2014 05-29-2014 Episodic Coronary atherosclerosis and other heart disease (2 sources) Presence of coronary angioplasty implant and graft; Translations: [Presence of coronary angioplasty implant and graft] Onset: 07-02-2015 08-06-2015 Episodic Deficiency and other anemia (2 sources) Anemia; Translations: [Anemia, unspecified] Onset: 03-21-2016 03-21-2016 Episodic Nonspecific chest pain (4 sources) Precordial pain; Translations: [Precordial pain] Onset: 10-28-2010 Resolved: 07-02-2015 10-28-2010 Episodic Other lower respiratory disease (10 sources) Dyspnea; Translations: [Cough] Onset: 02-25-2011 Resolved: 07-02-2015 08-06-2015 Episodic Other upper respiratory infections (2 sources) Upper respiratory infection; Translations: [Acute upper respiratory infection, unspecified] Onset: 12-07-2016 12-07-2016 Episodic Unclassified (4 sources) Family history of ischemic heart disease and other diseases of the circulatory system; Translations: [Family history of ischemic heart disease and other diseases of the circulatory system] Resolved: 08-06-2015 12-04-2014 Episodic Results Test Name Value Interpretation Reference Range Facil ity Vital Signs Date Time Vital Sign Value Performing Clinician Facility 05-09-2017 08:43-0500 BMI (Body Mass Index) 41.78 kg/m2 Saurabh Benites MD [facility] Work Phone: 05-09-2017 08:43-0500 Body Temperature 97.8 [degF] Saurabh Benites MD [facility] Work Phone: 05-09-2017 08:43-0500 BP Diastolic 83 mm[Hg] Saurabh Benites MD [facility] Work Phone: 05-09-2017 08:43-0500 BP Systolic 148 mm[Hg] Saurabh Benites MD [facility] Work Phone: 05-09-2017 08:43-0500 Height 160.02 cm Saurabh Benites MD [facility] Work Phone: 05-09-2017 08:43-0500 Pulse (Heart Rate) 74 /min Saurabh Benites MD [facility] Work Phone: 05-09-2017 08:43-0500 Respiratory Rate 20 /min Saurabh Benites MD [facility] Work Phone: 05-09-2017 08:43-0500 Weight 107 kg Saurabh Benites MD [facility] [employer] Work Phone: 05-31-2016 10:22-0500 Body Temperature 97.34 [degF] Saurabh Benites MD [facility] [employer] Work Phone: 05-31-2016 10:22-0500 BSA (Body Surface Area) 2.06 m2 Saurabh Benites MD [facility] [employer] Work Phone: 05-31-2016 10:22-0500 Height 160.02 cm Saurabh Benites MD [facility] [employer] Work Phone: 05-31-2016 10:220500 Weight 105.45 kg Saurabh Benites MD [facility] [employer] Work Phone: 03-08-2016 14:31-0400 Pulse Oximetry 97 % Saurabh Benites MD [facility] [employer] Work Phone: Procedures Date Procedure Procedure Detail Performing Clinician Start: 01-20-2017 End: 01-20-2017 *BMP Audelia Espinoza PA-C Work Phone: Start: 01-20-2017 End: 01-20-2017 *CBC with Differential Audelia huang PA-C Work Phone: Start: 01-20-2017 End: 01-20-2017 Follow Up Appt Other Audelia marley PA-C Work Phone: Start: 01-20-2017 End: 01-20-2017 Natriuretic peptide B [Mass/volume] in Blood Audelia Espinoza PA-C Work Phone: Start: 09-06-2016 End: 09-06-2016 CRITICAL CARE UNIT NURSE Audelia Espinoza PA-C Work Phone: Start: 09-06-2016 End: 09-06-2016 Follow Up Appt 6 months Audelia weiner PA-C Work Phone: Start: 09-06-2016 End: 09-06-2016 Follow Up Appt Other Audelia marley PA-C Work Phone: Start: 08-22-2016 End: 09-07-2016 DMB Lela Masoud Whit C SPA SUPERVISOR Work Phone: Start: 08-22-2016 End: 09-07-2016 Echo tthrc r-t 2d w/wom-mode compl spec&colr d Lela S Whit DENTAL HYGIENIST MOBILE COORDINATOR Work Phone: Start: 08-22-2016 End: 09-07-2016 Follow Up Appt 3 months Lela fonseca DENTAL HYGIENIST MOBILE COORDINATOR Work Phone: Start: 08-22-2016 End: 08-23-2016 Natriuretic peptide B [Mass/volume] in Blood Lela Meredith Whit DENTAL HYGIENIST MOBILE COORDINATOR Work Phone: Start: 06-08-2016 End: 08-18-2016 *MISC - Miscellaneous Lab Test #1 Lela Meredith Whit DENTAL HYGIENIST MOBILE COORDINATOR Work Phone: Start: 05-20-2016 End: 05-20-2016 Follow Up Appt 6 months Libia Liu Start: 05-20-2016 End: 05-20-2016 MMM David Ashton MD Start: 03-21-2016 End: 03-21-2016 *CBC with Differential Americo Nazario DO Work Phone: Start: 03-21-2016 End: 04-29-2016 Assay of ferritin Americo Nazario DO Work Phone: Start: 03-21-2016 End: 03-21-2016 Iron and Iron binding capacity panel - Serum or Plasma Americo Nazario DO Work Phone: Start: 03-21-2016 End: 03-21-2016 Reticulocytes/100 erythrocytes in Blood Americo Nazario DO Work Phone: Start: 03-14-2016 End: 03-14-2016 Left Heart Cath David Ashton MD Start: 03-09-2016 End: 03-09-2016 CBC W Auto Differential panel - Blood David Ashton MD Start: 03-09-2016 End: 03-18-2016 Nurse, Teaching, Wound Check (no charge) David Ashton MD Start: 03-08-2016 End: 03-09-2016 *BMP David Ashton MD Start: 03-08-2016 End: 03-09-2016 Ct angiography chest w/contrast/noncontrast David Ashton MD Start: 03-08-2016 End: 03-08-2016 Ecg routine ecg w/least 12 lds w/i&r David Ashton MD Start: 03-08-2016 End: 03-08-2016 Follow Up Appt 6 weeks David Ashton MD Start: 03-08-2016 End: 03-08-2016 MMM David Ashton MD Start: 03-08-2016 End: 03-09-2016 Natriuretic peptide B [Mass/volume] in Blood David Ashton MD Start: 02-08-2016 End: 04-29-2016 DMB Americoyarelis Nazario [employer] Work Phone: Start: 02-08-2016 End: 04-29-2016 Follow Up Appt 6 weeks Americo Reza Aravind [employer] Work Phone: Start: 02-08-2016 End: 03-18-2016 Pulmonary Function Test - complete Americoyarelis Nazario DO Work Phone: Start: 10-15-2015 End: 10-19-2015 *Hepatic Function Panel Libia Liu Start: 10-15-2015 End: 10-15-2015 Follow Up Appt 6 months Libia Liu Start: 10-15-2015 End: 10-19-2015 Lipid 1996 panel - Serum or Plasma David Ashton MD Start: 10-15-2015 End: 10-15-2015 CAROLINE Ashton MD Start: 08-27-2015 End: 08-27-2015 Follow Up Appt 6 weeks Audelia huang PA-C Work Phone: Start: 08-27-2015 End: 08-27-2015 CAROLINE Espinoza PA-C Work Phone: Start: 08-06-2015 End: 08-06-2015 *BMP David Ashton MD Start: 08-06-2015 End: 08-06-2015 CBC W Auto Differential panel - Blood David Ashton MD Start: 08-06-2015 End: 08-06-2015 Follow up Appt 3 weeks David Ashton MD Start: 08-06-2015 End: 08-06-2015 MMLibia Ashton MD Start: 08-06-2015 End: 08-06-2015 Natriuretic peptide B [Mass/volume] in Blood David Ashton MD Start: 07-16-2015 End: 08-27-2015 Cardiac Rehab Audelia Espinoza PA-C Work Phone: Start: 07-16-2015 End: 07-16-2015 Ecg routine ecg w/least 12 lds w/i&r Audelia Espinoza PA-C Work Phone: Start: 07-16-2015 End: 07-16-2015 Follow Up Appt 6 weeks Audelia huang PA-C Work Phone: Start: 07-16-2015 End: 07-16-2015 CAROLINE Espinoza PA-C Work Phone: Start: 06-16-2015 End: 06-16-2015 Ecg routine ecg w/least 12 lds w/i&r David Ashton MD Start: 06-16-2015 End: 06-25-2015 Echocardiography David Ashton MD Start: 06-16-2015 End: 07-16-2015 Follow Up Appt 6 months Libia Liu Start: 06-16-2015 End: 07-16-2015 CAROLINE Ashton MD Start: 06-16-2015 End: 06-17-2015 Natriuretic peptide B [Mass/volume] in Blood David Ashton MD Start: 12-04-2014 End: 12-04-2014 SIMI Espinoza PA-C Work Phone: Start: 12-04-2014 End: 12-05-2014 Documentation of current medications Audelia Espinoza PA-C Work Phone: Start: 12-04-2014 End: 12-04-2014 Ecg routine ecg w/least 12 lds w/i&r Audelia Espinoza PA-C Work Phone: Start: 12-04-2014 End: 12-04-2014 Follow Up Appt 6 months Audelia weiner PA-C Work Phone: Start: 12-04-2014 End: 06-25-2015 Nuclear stress test -Lexiscan Audelia Espinoza PA-C Work Phone: Start: 05-29-2014 End: 06-30-2014 24 hour holter monitor David Ashton MD Start: 05-29-2014 End: 05-29-2014 Follow Up Appt 6 months Libia Liu Start: 05-29-2014 End: 05-29-2014 CAROLINE Ashton MD Start: 12-31-2013 End: 12-31-2013 CRITICAL CARE UNIT NURSE Audelia Espinoza PA-C Work Phone: Start: 12-31-2013 End: 12-31-2013 Follow Up Appt 6 months Audelia wiener PA-C Work Phone: Start: 06-25-2013 End: 06-25-2013 Ecg routine ecg w/least 12 lds w/i&r David Ashton MD Start: 06-25-2013 End: 06-25-2013 Follow Up Appt 6 months Libia Liu Start: 06-25-2013 End: 06-25-2013 MMM David Ashton MD Start: 05-19-2013 End: 06-21-2013 *Hepatic Function Panel Libia Liu Start: 05-19-2013 End: 06-21-2013 Lipid 1996 panel - Serum or Plasma David Ashton MD Start: 11-17-2012 End: 12-05-2012 *Hepatic Function Panel Libia Liu Start: 11-17-2012 End: 12-05-2012 Lipid 1996 panel - Serum or Plasma David Ashton MD Start: 06-21-2012 End: 06-21-2012 Follow Up Appt 1 year David Ashton MD Start: 06-23-2011 End: 06-23-2011 Follow Up Appt 1 year Estrella August RN Plan of Treatment Date Care Activity Detail Author Start: 09-06-2017 End: 09-06-2017 Appointment Appointment [facility] Work Phone: Start: 05-22-2017 End: 05-22-2017 Appointment Appointment [facility] Work Phone: Start: 05-09-2017 End: 05-09-2017 Hepatobiliary imaging NM HIDA Scan with EF [facility] Work Phone: Start: 05-09-2017 End: 05-09-2017 Us abdominal real time w/image documentation US Abdomen, RUQ [facility] [email or web address] Work Phone: Start: 05-09-2017 End: 05-09-2017 Appointment Appointment [facility] [employer] Work Phone: Start: 03-09-2017 End: 03-09-2017 Follow Up Appt 6 months Follow Up Appt 6 months [facility] [employer] Work Phone: Start: 03-09-2017 End: 03-09-2017 MMM MMM [facility] [employer] Work Phone: Start: 01-20-2017 End: 01-20-2017 *BMP *BMP [facility] [employer] Work Phone: Start: 01-20-2017 End: 01-20-2017 *CBC with Differential *CBC with Differential [facility] [employer] Work Phone: Start: 01-20-2017 End: 01-20-2017 BNP *Brain Natriuretic Peptide BNP [facility] [employer] Work Phone: Start: 01-20-2017 End: 01-20-2017 Chest x-ray X-Ray, Chest, PA & Lateral [facility] [employer] Work Phone: Start: 01-20-2017 End: 01-20-2017 Follow Up Appt Other Follow Up Appt Other [facility] [employer] Work Phone: Start: 11-28-2016 End: 11-28-2016 DMB DMB [facility] [employer] Work Phone: Start: 11-28-2016 End: 11-28-2016 Follow Up Appt 1 year Follow Up Appt 1 year [facility] [employer] Work Phone: Start: 09-06-2016 End: 09-06-2016 CRITICAL CARE UNIT NURSE CRITICAL CARE UNIT NURSE [facility] [employer] Work Phone: Start: 09-06-2016 End: 09-06-2016 Follow Up Appt 6 months Follow Up Appt 6 months [facility] [employer] Work Phone: Start: 09-06-2016 End: 09-06-2016 Follow Up Appt Other Follow Up Appt Other [facility] [employer] Work Phone: Start: 08-22-2016 End: 08-23-2016 BNP *Brain Natriuretic Peptide BNP [facility] [employer] Work Phone: Start: 08-22-2016 End: 09-07-2016 DMB DMB [facility] [employer] Work Phone: Start: 08-22-2016 End: 09-07-2016 Echo tthrc r-t 2d w/wom-mode compl spec&colr d Echo Complete with Color Flow [facility] [employer] Work Phone: Start: 08-22-2016 End: 09-07-2016 Follow Up Appt 3 months Follow Up Appt 3 months [facility] [employer] Work Phone: Start: 06-08-2016 End: 08-18-2016 *MISC - Miscellaneous Lab Test #1 *MISC - Miscellaneous Lab Test #1 [facility] [employer] Work Phone: Start: 05-31-2016 End: 05-31-2016 DMB DMB [facility] [employer] Work Phone: Start: 05-31-2016 End: 05-31-2016 Follow Up Appt 4 months Follow Up Appt 4 months [facility] [employer] Work Phone: Start: 05-20-2016 End: 05-20-2016 Follow Up Appt 6 months Follow Up Appt 6 months [facility] [employer] Work Phone: Start: 05-20-2016 End: 05-20-2016 MMM MMM [facility] [employer] Work Phone: Start: 04-20-2016 End: 10-20-2015 *Hepatic Function Panel *Hepatic Function Panel [facility] [employer] Work Phone: Start: 04-20-2016 End: 10-20-2015 Lipid panel [AGGREGATE] *Lipid Profile CC PCP [facility] [employer] Work Phone: Start: 03-21-2016 End: 03-21-2016 *CBC with Differential *CBC with Differential [facility] [employer] Work Phone: Start: 03-21-2016 End: 04-29-2016 Assay of ferritin Ferritin [facility] [employer] Work Phone: Start: 03-21-2016 End: 03-21-2016 DMB DMB [facility] [employer] Work Phone: Start: 03-21-2016 End: 03-21-2016 Follow Up Appt 6 weeks Follow Up Appt 6 weeks [facility] [employer] Work Phone: Start: 03-21-2016 End: 03-21-2016 Iron and Iron binding capacity panel - Serum or Plasma *IBC Iron & Total Iron Binding Capacity [facility] [employer] Work Phone: Start: 03-21-2016 End: 03-21-2016 Reticulocytes/100 erythrocytes *Reticulocyte Count [facility] [employer] Work Phone: Start: 03-14-2016 End: 03-14-2016 Left Heart Cath Left Heart Cath [facility] [employer] Work Phone: Start: 03-09-2016 End: 03-09-2016 CBC W Auto Differential panel - Blood *CBC without Diff [facility] [employer] Work Phone: Start: 03-08-2016 End: 03-09-2016 *BMP *BMP [facility] [employer] Work Phone: Start: 03-08-2016 End: 03-09-2016 BNP *Brain Natriuretic Peptide BNP [facility] Work Phone: Start: 03-08-2016 End: 03-09-2016 Ct angiography chest w/contrast/noncontrast CTA Chest, with contrast material(s) [facility] [employer] Work Phone: Start: 03-08-2016 End: 03-08-2016 Ecg routine ecg w/least 12 lds w/i&r EKG (In office) [facility] [employer] Work Phone: Start: 03-08-2016 End: 03-08-2016 Follow Up Appt 6 weeks Follow Up Appt 6 weeks [facility] [employer] Work Phone: Start: 03-08-2016 End: 03-08-2016 MMM MMM [facility] [employer] Work Phone: Start: 02-08-2016 End: 04-29-2016 DMB DMB [facility] Work Phone: Start: 02-08-2016 End: 04-29-2016 Follow Up Appt 6 weeks Follow Up Appt 6 weeks [facility] [employer] Work Phone: Start: 02-08-2016 End: 03-18-2016 Pulmonary Function Test - complete Pulmonary Function Test - complete [facility] [employer] Work Phone: Start: 10-15-2015 End: 10-19-2015 *Hepatic Function Panel *Hepatic Function Panel [facility] [employer] Work Phone: Start: 10-15-2015 End: 10-15-2015 Follow Up Appt 6 months Follow Up Appt 6 months [facility] [employer] Work Phone: Start: 10-15-2015 End: 10-19-2015 Lipid panel [AGGREGATE] *Lipid Profile CC PCP [facility] [employer] Work Phone: Start: 10-15-2015 End: 10-15-2015 MMM MMM [facility] [employer] Work Phone: Start: 08-27-2015 End: 08-27-2015 Follow Up Appt 6 weeks Follow Up Appt 6 weeks [facility] [employer] Work Phone: Start: 08-27-2015 End: 08-27-2015 MMM MMM [employer] Work Phone: Start: 08-06-2015 End: 08-06-2015 *BMP *BMP [facility] [employer] Work Phone: Start: 08-06-2015 End: 08-06-2015 BNP *Brain Natriuretic Peptide BNP [facility] [employer] Work Phone: Start: 08-06-2015 End: 08-06-2015 CBC W Auto Differential panel - Blood *CBC without Diff [facility] [employer] Work Phone: Start: 08-06-2015 End: 08-06-2015 Follow up Appt 3 weeks Follow up Appt 3 weeks [facility] [employer] Work Phone: Start: 08-06-2015 End: 08-06-2015 MMM MMM [facility] [employer] Work Phone: Start: 07-16-2015 End: 08-27-2015 Cardiac Rehab Cardiac Rehab [facility] [employer] Work Phone: Start: 07-16-2015 End: 07-16-2015 Ecg routine ecg w/least 12 lds w/i&r EKG (In office) [facility] [employer] Work Phone: Start: 07-16-2015 End: 07-16-2015 Follow Up Appt 6 weeks Follow Up Appt 6 weeks [facility] [employer] Work Phone: Start: 07-16-2015 End: 07-16-2015 MMM MMM [facility] [employer] Work Phone: Start: 06-16-2015 End: 06-17-2015 BNP *Brain Natriuretic Peptide BNP [facility] [employer] Work Phone: Start: 06-16-2015 End: 06-16-2015 Ecg routine ecg w/least 12 lds w/i&r EKG (In office) [facility] [employer] Work Phone: Start: 06-16-2015 End: 06-16-2015 Echocardiography Echocardiogram (complete) [facility] [employer] Work Phone: Start: 06-16-2015 End: 07-16-2015 Follow Up Appt 6 months Follow Up Appt 6 months [facility] [employer] Work Phone: Start: 06-16-2015 End: 07-16-2015 MMM MMM [facility] [employer] Work Phone: Start: 12-04-2014 End: 12-04-2014 CRITICAL CARE UNIT NURSE CRITICAL CARE UNIT NURSE [facility] [employer] Work Phone: Start: 12-04-2014 End: 12-04-2014 Ecg routine ecg w/least 12 lds w/i&r EKG (In office) [facility] [employer] Work Phone: Start: 12-04-2014 End: 12-04-2014 Follow Up Appt 6 months Follow Up Appt 6 months [facility] [employer] Work Phone: Start: 12-04-2014 End: 12-04-2014 Nuclear stress test -Lexiscan Nuclear stress test -Lexiscan [facility] [employer] Work Phone: Start: 05-29-2014 End: 05-29-2014 24 hour holter monitor 24 hour holter monitor [facility] [employer] Work Phone: Start: 05-29-2014 End: 05-29-2014 Follow Up Appt 6 months Follow Up Appt 6 months [facility] [employer] Work Phone: Start: 05-29-2014 End: 05-29-2014 MMM MMM [facility] [employer] Work Phone: Start: 12-31-2013 End: 12-31-2013 CRITICAL CARE UNIT NURSE CRITICAL CARE UNIT NURSE [facility] [employer] Work Phone: Start: 12-31-2013 End: 12-31-2013 Follow Up Appt 6 months Follow Up Appt 6 months [facility] [employer] Work Phone: Start: 06-25-2013 End: 06-25-2013 Ecg routine ecg w/least 12 lds w/i&r EKG (In office) [facility] [employer] Work Phone: Start: 06-25-2013 End: 06-25-2013 Follow Up Appt 6 months Follow Up Appt 6 months [facility] [employer] Work Phone: Start: 06-25-2013 End: 06-25-2013 MMM MMM [facility] [employer] Work Phone: Start: 05-19-2013 End: 06-21-2013 *Hepatic Function Panel *Hepatic Function Panel [facility] [employer] Work Phone: Start: 05-19-2013 End: 06-21-2013 Lipid panel [AGGREGATE] *Lipid Profile CC PCP [facility] [employer] Work Phone: Start: 11-17-2012 End: 12-05-2012 *Hepatic Function Panel *Hepatic Function Panel [facility] [employer] Work Phone: Start: 11-17-2012 End: 12-05-2012 Lipid panel [AGGREGATE] *Lipid Profile [facility] [employer] Work Phone: Start: 06-21-2012 End: 06-21-2012 Follow Up Appt 1 year Follow Up Appt 1 year [facility] Work Phone: Start: 06-23-2011 End: 06-23-2011 Follow Up Appt 1 year Follow Up Appt 1 year [facility] Work Phone: Patient Education HYPERLIPIDEMIA [facility] Work Phone: Progress note 03-13-2021 Note Date & Type Note Facility 03-13-2021 Note HNO ID: [id number] Author: Juliann Moya APRN.DENTAL HYGIENIST MOBILE COORDINATOR Service: ? Author Type: Nurse Practitioner Type: Progress Notes Filed: 03/13/2021 12:24 PM Note Text: This note was created using elicitriter. Subjective Darren Reddy is a 85 year old male. 85 year old male with PMH Parkinsons, HTN, hyperlipidemia, GERD, DANYELL, thyroid presents with complaints of cough and SOB. Acute onset of symptoms was this past Monday +cough +moist harsh cough. +SOB with coughing. Denies fever or chills. Denies CP. Denies hemoptysis. Denies abdominal pain. Denies N/V/D. Mucinex utilized without relief of symptoms. Denies prior history of COVID. States he has been vaccinated. Accompanied by . States that he has had similar in past and Prednisone seems to help. Denies tobacco usage. The history is provided by the patient. No destination imagination coordinator was used. Cough This is a new problem. The current episode started more than 2 days ago. The problem occurs constantly. The problem has been gradually worsening. The cough is non-productive. There has been no fever. Associated symptoms include shortness of breath. Pertinent negatives include no chest pain, no chills, no sweats, no weight loss, no ear congestion, no ear pain, no headaches, no rhinorrhea, no sore throat, no wheezing and no eye redness. Treatments tried: Mucinex. The treatment provided no relief. He is not a smoker. His past medical history does not include bronchitis, pneumonia, bronchiectasis, COPD, emphysema or asthma. 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 07/07/2014 - Calculus of kidney - Class 3 severe obesity due to excess calories with body mass index (BMI) of 40.0 to 44.9 in adult ([facility]) - Controlled type 2 diabetes mellitus with stage 3 chronic kidney disease, without long-term current use of insulin ([facility]) 03/26/2018 - Diaphragmatic hernia without mention of obstruction or gangrene - Diverticulitis of colon (without mention of hemorrhage)(562.11) - Elevated liver function tests 03/26/2018 - Esophageal reflux - Essential hypertension, benign 01/28/2014 - Family history of colon cancer in mother 12/22/2014 - GERD (gastroesophageal reflux disease) 04/19/2010 - Hyperlipidemia LDL goal < 100 04/26/2011 - Hypothyroidism 08/21/2010 - Lumbar disc disease with radiculopathy 10/09/2013 - Morbid obesity ([facility]) 04/23/2012 - DANYELL (obstructive sleep apnea) - Osteoarthritis of hip 02/16/2010 - Other diseases of lung, not elsewhere classified PULMONARY NODULE - Parkinson's disease ([facility]) - Pure hypercholesterolemia - S/P PTCA (percutaneous transluminal coronary angioplasty) - Shortness of breath - Snoring - Unspecified asthma(493.90) - Unspecified constipation - Unspecified hemorrhoids without mention of complication - Vitamin D deficiency 07/05/2013 PAST SURGICAL HISTORY Procedure Laterality Date - COLONOSCOP W/ OR W/O [facility] 07/30/03 Colonoscopy - COLONOSCOP W/ OR W/O [facility] 10/28/08 - COLONOSCOP W/ OR W/O [facility] SPE[facility] 01/29/15 Colonoscopy - ECHO 06/24/2015 [facility] - see scanned documents - EGD W/O OR W/BRUSH/WASH 09/27/2006 EGD - EGD W/O OR W/BRUSH/WASH 04/27/2010 EGD - EGD W/O OR W/BRUSH/WASH 04/15/16 EGD - EGD W/O OR W/BRUSH/WASH 08/01/2019 EGD - LAPAROSCOPY, SURGICAL, APPENDECTOMY 05/02/16 - POLYSOMNOGRAM 06/2001 - PULMONARY FUNCTION TEST 10/19/02 - REPAIR INCIS HERNIA W MESH 03/26/07 - REPAIR INCISIONAL HERNIA,REDUCIBLE 03/26/07 - 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 albuterol HFA (PROVENTIL HFA, VENTOLIN HFA) 90 mcg/actuation inhaler Inhale 2-4 Puffs as instructed every 4 hours as needed for wheezing/shortness of breath. doxycycline (VIBRA-TABS) 100 mg tablet Take 1 tablet by mouth twice daily for [address] (PROTONIX) 40 mg tablet Take 1 tablet by mouth once daily. clopidogrel (PLAVIX) 75 mg tablet Take 1 tablet by mouth once daily. losartan (COZAAR) 100 mg tablet Take 1 tablet by mouth once daily. isosorbide mononitrate ER (IMDUR) 30 mg 24 hr tablet Take 1 tablet by mouth once daily. levothyroxine (SYNTHROID) 50 mcg tablet Take 1 tablet by mouth once daily. pravastatin (PRAVACHOL) 20 mg tablet Take 1 tablet by mouth once daily. tamsulosin (FLOMAX) 0.4 mg Take 1 capsule by mouth daily at bedtime. insulin NPH-insulin regular injection (HumuLIN, NovoLIN 70/30) 48 units SQ ac breakfast and 40 units SQ ac supper carbidopa-levodopa (SINEMET) 10-100 mg per tablet Take 1 tablet by mouth twice daily. citalopram hydrobromide (CELEXA) 10 mg tablet Take 1 tablet by mouth once daily. vit A/vit C/vit E/zinc/copper (PRESERVISION AREDS ORAL) Take 1 tablet (more content not included)... [facility] Progress note 09-17-2020 Note Date & Type Note Facility 09-17-2020 Note HNO ID: [id number] Author: Soham Jones III Service: ? Author Type: Physician Type: Progress Notes Filed: 09/17/2020 12:42 PM Note Text: SUBJECTIVE: This is a 85 year old male that is here today for follow up of 1. weight and 2. diabetes mellitus--home glu 166 this AM Received cortisone injection in knee 1 wk ago. No hypoglycemia 3. pt fell several wks ago, since then he has had swelling L foot at times--better in AMs. No pain. 4. last night had severe pain L flank last night lasting all night. No pain this AM. Hx of renal stones. 5. hypertension 6. tremor-better controlled on sinemet. Current Outpatient Medications on File Prior to Visit Medication Sig - carbidopa-levodopa (SINEMET) 10-100 mg per tablet Take 1 tablet by mouth twice daily. - citalopram hydrobromide (CELEXA) 10 mg tablet Take 1 tablet by mouth once daily. - vit A/vit C/vit E/zinc/copper (PRESERVISION AREDS ORAL) Take 1 tablet by mouth once daily. - insulin NPH-insulin regular injection (HumuLIN, NovoLIN 70/30) 50 units SQ ac breakfast and 40 units SQ ac supper (Patient taking differently: Inject 45 Units subcutaneously daily with breakfast. 45 units SQ ac breakfast and 40 units SQ ac supper ) - pantoprazole DR (PROTONIX) 40 mg tablet Take 1 tablet by mouth once daily. - clopidogrel (PLAVIX) 75 mg tablet Take 1 tablet by mouth once daily. - losartan (COZAAR) 100 mg tablet Take 1 tablet by mouth once daily. - isosorbide mononitrate ER (IMDUR) 30 mg 24 hr tablet Take 30 mg by mouth once daily. - levothyroxine (SYNTHROID) 50 mcg tablet Take 1 tablet by mouth once daily. - Hydrochlorothiazide 12.5 mg capsule Take 1 capsule by mouth once daily. (Patient not taking: Reported on 11/25/2019 ) - capsaicin (ZOSTRIX-HP) 0.075 % topical cream Apply 1 application to affected area three times daily as needed (pain). (Patient not taking: Reported on 05/13/2019 ) - albuterol HFA (PROVENTIL HFA, VENTOLIN HFA) 90 mcg/actuation inhaler Inhale 2 Puffs as instructed every 4 hours as needed. (Patient not taking: Reported on 08/08/2019 ) - pravastatin (PRAVACHOL) 20 mg tablet Take 1 tablet by mouth once daily. - tamsulosin ER (FLOMAX) 0.4 mg cp24 Take 1 capsule by mouth daily at bedtime. - furosemide (LASIX) 40 mg tablet Take 40 mg by mouth once daily. - finasteride (PROSCAR) 5 mg tablet Take 5 mg by mouth once daily. - aspirin, enteric coated (ASPIRIN, ENTERIC COATED) 81 mg EC tablet Take 81 mg by mouth once daily. - metFORMIN (GLUCOPHAGE) 500 mg tablet Take 2 tablets by mouth twice daily with meals. - Cholecalciferol, Vitamin D3, (VITAMIN D-3) 2,000 unit cap Take 1 tablet by mouth once daily. No current facility-administered medications on file prior to visit. 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 07/07/2014 - Calculus of kidney - Class 3 severe obesity due to excess calories with body mass index (BMI) of 40.0 to 44.9 in adult ([facility]) - Controlled type 2 diabetes mellitus with stage 3 chronic kidney disease, without long-term current use of insulin ([facility]) 03/26/2018 - Diaphragmatic hernia without mention of obstruction or gangrene - Diverticulitis of colon (without mention of hemorrhage)(562.11) - Elevated liver function tests 03/26/2018 - Esophageal reflux - Essential hypertension, benign 01/28/2014 - Family history of colon cancer in mother 12/22/2014 - GERD (gastroesophageal reflux disease) 04/19/2010 - Hyperlipidemia LDL goal < 100 04/26/2011 - Hypothyroidism 08/21/2010 - Lumbar disc disease with radiculopathy 10/09/2013 - Morbid obesity (HCC) 04/23/2012 - DANYELL (obstructive sleep apnea) - Osteoarthritis of hip 02/16/2010 - Other diseases of lung, not elsewhere classified PULMONARY NODULE - Pure hypercholesterolemia - S/P PTCA (percutaneous transluminal coronary angioplasty) - Shortness of breath - Snoring - Unspecified asthma(493.90) - Unspecified constipation - Unspecified hemorrhoids without mention of complication - Vitamin D deficiency 07/05/2013 FAMILY HISTORY Problem Relation Age of Onset - Cancer Father BRAIN - Heart Mother - Colon Cancer Mother - Heart Brother - Breast Cancer Sister - Diabetes Sister - other (testicular cancer) Son Social History Tobacco Use - Smoking status: Former Smoker Packs/day: 1.00 Years: 5.00 Pack years: 5.00 Types: Cigarettes Quit date: 10/17/1964 Years since quittin.9 - Smokeless tobacco: Never Used Substance Use Topics - Alcohol use: No - Drug use: No BP 130/80 (BP Site: Left Arm, BP Position: Sitting, BP Cuff Size: Large Adult) Pulse 76 Resp 16 Wt 108.4 kg (239 lb) BMI 41.02 kg/m? OBJECTIVE: APPEARANCE Well appearing, alert, in no acute distress, well-hydrated, well nourished. and Morbidly obese ABD-no tenderness LUQ . Mild tenderness L CVA EXT (more content not included)... [facility] Progress note 09-08-2020 Note Date & Type Note Facility 09-08-2020 Note HNO ID: [id number] Author: Debbie Palma Service: ? Author Type: Destination Imagination Coordinator Type: Progress Notes Filed: 09/08/2020 8:47 AM Note Text: POPULATION HEALTH NAVIGATION OUTREACH Action/FYI September 08, 2020 8:45 AM I spoke with and scheduled a follow up appointment for patient with PCP for 09/17/20. Aware A1C is ordered and due prior to appointment. Contact made with patient or family member? YES Pt identified by name and : YES Outreach Outcome/Action Spoke to patient or caregiver: Patient scheduled in Primary Care Reason for Outreach HCC or suspected condition Payer: Payor: AET MEDICARE / Plan: AETNA MEDICARE PPO / Product Type: PPO / Care Gap Reviewed:: Follow-up appointment HBA1C Reminder: Reminder note to check Health Maintenance for items below Health Maintenance items due: DTAP,TDAP,TD(1 - Tdap) due on 1956 SHINGRIX VACCINE(2 of 3) due on 06/21/2011 HBA1C due on 07/22/2020 DIABETIC FOOT EXAM due on 07/30/2020 Referrals: N/A Message Sent to Practice: NO Navigation Signature: Debbie Palma Population Health Navigator September 08, 2020 8:45 AM [facility] Progress note 09-07-2020 Note Date & Type Note Facility 09-07-2020 Note HNO ID: [id number] Author: Soham Jones III Service: ? Author Type: Physician Type: Progress Notes Filed: 09/08/2020 8:47 AM Note Text: He will need to make an appointment for weight check and hemoglobin A1c. This may be within the next 3 months. Notify the patient that we will be looking for evidence of weight loss. He may be scheduled with [facility] or myself. Soham Jones III, MD, FAAFP [facility] Clinical Note 09-07-2020 Note Date & Type Note Facility 09-07-2020 Note Patient Outreach (YVONNE BEASLEY) DARREN REDDY ([id number]) 1935 M Date Time Provider Department 09/07/20 DEBBIE PALMA During your visit today, we recorded the following information about you: Debbie Palma Population Health Navigator 09/08/2020 8:47 AM Signed POPULATION HEALTH NAVIGATION OUTREACH Action/September 07, 2020 HCC: E66.01 - Morbid (severe) obesity due to excess calories Discuss/due for: A1C (order pending). Outcome: A1C pending and sent to PCP to review/file. HCC message sent to PCP. Contact made with patient or family member? NO Pt identified by name and : NO Outreach Outcome/Action Message sent to provider regarding HCC or suspected condition - Will ll only Reason for Outreach HCC or suspected condition Payer: Payor: AETNA MEDICARE / Plan: AETNA MEDICARE PPO / Product Type: PPO / Care Gap Reviewed:: HBA1C Reminder: Reminder note to check Health Maintenance for items below Health Maintenance items due: DTAP,TDAP,TD(1 - Tdap) due on 1956 SHINGRIX VACCINE(2 of 3) due on 06/21/2011 HBA1C due on 07/22/2020 DIABETIC FOOT EXAM due on 07/30/2020 Referrals: N/A Message Sent to Practice: YES Navigation Signature: Debbie Palma Population Health Navigator September 07, 2020 7:53 AM Soham Jones III MD 09/08/2020 8:47 AM Signed He will need to make an appointment for weight check and hemoglobin A1c. This may be within the next 3 months. Notify the patient that we will be looking for evidence of weight loss. He may be scheduled with [facility] or myself. Soham Jones III, MD, FAAFP Debbie Palma Population Health Navigator 09/08/2020 8:47 AM Signed POPULATION HEALTH NAVIGATION OUTREACH Action/September 08, 2020 8:45 AM I spoke with and scheduled a follow up appointment for patient with PCP for 09/17/20. Aware A1C is ordered and due prior to appointment. Contact made with patient or family member? YES Pt identified by name and : YES Outreach Outcome/Action Spoke to patient or caregiver: Patient scheduled in Primary Care Reason for Outreach HCC or suspected condition Payer: Payor: AETNA MEDICARE / Plan: AETNA MEDICARE PPO / Product Type: PPO / Care Gap Reviewed:: Follow-up appointment HBA1C Reminder: Reminder note to check Health Maintenance for items below Health Maintenance items due: DTAP,TDAP,TD(1 - Tdap) due on 1956 SHINGRIX VACCINE(2 of 3) due on 06/21/2011 HBA1C due on 07/22/2020 DIABETIC FOOT EXAM due on 07/30/2020 Referrals: N/A Message Sent to Practice: NO Navigation Signature: Debbie Palma Population Health Navigator September 08, 2020 8:45 AM Allergies As of Date: 09/07/2020 Noted Allergy Reaction ACTOS (PIOGLITAZONE HCL) 2006 Comments: abdomenal pain Date Reviewed: 07/20/2020 Reviewed by: Lupe Reilly Ma - Fully Assessed Reason for Visit: Population Health Navigation Outreach [3910] Cmt: Deferred Care Primary Visit Diagnosis:Controlled type 2 diabetes mellitus with stage 3 chronic kidney disease, without long-term current use of insulin (HCC) [E11.22, N18.30] Order(s):HGB A1C [[id number]] Order #: [id number] FUTURE Prescriptions as of 09/07/2020 Sig: CARBIDOPA 10 MG-LEVODOPA 100 * Take 1 tablet by mouth twice * CITALOPRAM 10 MG TABLET Take 1 tablet by mouth once d* PRESERVISION AREDS ORAL Take 1 tablet by mouth once d* INSULIN HUMAN U-100 NPH-REGUL* 50 units SQ ac breakfast and * Patient taking differently: Inject 45 Units subcutaneousl* PANTOPRAZOLE 40 MG TABLET,DEL* Take 1 tablet by mouth once d* CLOPIDOGREL 75 MG TABLET Take 1 tablet by mouth once d* LOSARTAN 100 MG TABLET Take 1 tablet by mouth once d* ISOSORBIDE MONONITRATE ER 30 * Take 30 mg by mouth once neeraj* LEVOTHYROXINE 50 MCG TABLET Take 1 tablet by mouth once d* HYDROCHLOROTHIAZIDE 12.5 MG C* Take 1 capsule by mouth once * Patient not taking: Reported on 11/25/2019 CAPSAICIN 0.075 % TOPICAL CRE* Apply 1 application to affect* Patient not taking: Reported on 05/13/2019 ALBUTEROL SULFATE HFA 90 MCG/* Inhale 2 Puffs as instructed * Patient not taking: Reported on 08/08/2019 PRAVASTATIN 20 MG TABLET Take 1 tablet by mouth once d* TAMSULOSIN 0.4 MG CAPSULE Take 1 capsule by mouth daily* FUROSEMIDE 40 MG TABLET Take 40 mg by mouth once neeraj* FINASTERIDE 5 MG TABLET Take 5 mg by mouth once daily. ASPIRIN 81 MG TABLET,DELAYED * Take 81 mg by mouth once neeraj* METFORMIN 500 MG TABLET Take 2 tablets by mouth twice* CHOLECALCIFEROL (VITAMIN D3) * Take 1 tablet by mouth once d* Problem List As Of Date 09/07/2020 Noted Resolved ESOPHAGEAL REFLUX [K21.9] Asthma [J45.909] 06/28/2019 CALCULUS OF KIDNEY [N20.0] Diverticulitis of colon (without mention of hem* 12/22/2014 CHRONIC LIVER DIS NOS [K76.9] 06/22/2006 Abdominal pain, generalized [R10.84] 08/03/2006 12/22/2014 Acute gastritis without mention of hemorrhage [*09/27/2006 12/22/2014 (more content not included)... [facility] Progress note 09-07-2020 Note Date & Type Note Facility 09-07-2020 Note HNO ID: [id number] Author: Debbie Palma Service: ? Author Type: Destination Imagination Coordinator Type: Progress Notes Filed: 09/08/2020 8:47 AM Note Text: POPULATION HEALTH NAVIGATION OUTREACH Action/September 07, 2020 HCC: E66.01 - Morbid (severe) obesity due to excess calories Discuss/due for: A1C (order pending). Outcome: A1C pending and sent to PCP to review/file. HCC message sent to PCP. Contact made with patient or family member? NO Pt identified by name and : NO Outreach Outcome/Action Message sent to provider regarding HCC or suspected condition - Will ll only Reason for Outreach HCC or suspected condition Payer: Payor: AETNA MEDICARE / Plan: AETNA MEDICARE PPO / Product Type: PPO / Care Gap Reviewed:: HBA1C Reminder: Reminder note to check Health Maintenance for items below Health Maintenance items due: DTAP,TDAP,TD(1 - Tdap) due on 1956 SHINGRIX VACCINE(2 of 3) due on 06/21/2011 HBA1C due on 07/22/2020 DIABETIC FOOT EXAM due on 07/30/2020 Referrals: N/A Message Sent to Practice: YES Navigation Signature: Debbie Palma Population Health Navigator September 07, 2020 7:53 AM [facility] Progress note 08-20-2020 Note Date & Type Note Facility 08-20-2020 Note HNO ID: [id number] Author: Asaf (Rn) NANCI Clemens Service: ? Author Type: Registered Nurse Type: Progress Notes Filed: 08/20/2020 4:18 PM Note Text: [facility] NURSE ? CHART REVIEW Provider [facility] Action Standard Chart Review Pt identified by name and . Reason for Review: ? Payor request Patient Attributed To: ? QAE Payer: ? AEBONITA Chart Review For: Quality measure review o Payor request for assistance o Available Programs Action Taken: ? Data submitted to payor Asaf Clemens RN August 20, 2020 4:10 PM [facility] Clinical Note 08-20-2020 Note Date & Type Note Facility 08-20-2020 Note Patient Outreach (NE TNAV) DARREN REDDY ([id number]) 1935 M Date Time Provider Department 08/20/20 ASAF CLEMENS (RN) [id number] During your visit today, we recorded the following information about you: Asaf Clemens RN, RN 08/20/2020 4:18 PM Signed [facility] NURSE ? CHART REVIEW Provider [facility] Action Standard Chart Review Pt identified by name and . Reason for Review: ? Payor request Patient Attributed To: ? QAE Payer: ? AETNA Chart Review For: Quality measure review o Payor request for assistance o Available Programs Action Taken: ? Data submitted to payor Asaf Clemens RN August 20, 2020 4:10 PM Allergies As of Date: 08/20/2020 Noted Allergy Reaction ACTOS (PIOGLITAZONE HCL) 2006 Comments: abdomenal pain Date Reviewed: 07/20/2020 Reviewed by: Lupe Reilly Ma - Fully Assessed Reason for Visit: Chart Review [Other] Prescriptions as of 08/20/2020 Sig: CARBIDOPA 10 MG-LEVODOPA 100 * Take 1 tablet by mouth twice * CITALOPRAM 10 MG TABLET Take 1 tablet by mouth once d* PRESERVISION AREDS ORAL Take 1 tablet by mouth once d* INSULIN HUMAN U-100 NPH-REGUL* 50 units SQ ac breakfast and * Patient taking differently: Inject 45 Units subcutaneousl* PANTOPRAZOLE 40 MG TABLET,DEL* Take 1 tablet by mouth once d* CLOPIDOGREL 75 MG TABLET Take 1 tablet by mouth once d* LOSARTAN 100 MG TABLET Take 1 tablet by mouth once d* ISOSORBIDE MONONITRATE ER 30 * Take 30 mg by mouth once neeraj* LEVOTHYROXINE 50 MCG TABLET Take 1 tablet by mouth once d* HYDROCHLOROTHIAZIDE 12.5 MG C* Take 1 capsule by mouth once * Patient not taking: Reported on 11/25/2019 CAPSAICIN 0.075 % TOPICAL CRE* Apply 1 application to affect* Patient not taking: Reported on 05/13/2019 ALBUTEROL SULFATE HFA 90 MCG/* Inhale 2 Puffs as instructed * Patient not taking: Reported on 08/08/2019 PRAVASTATIN 20 MG TABLET Take 1 tablet by mouth once d* TAMSULOSIN 0.4 MG CAPSULE Take 1 capsule by mouth daily* FUROSEMIDE 40 MG TABLET Take 40 mg by mouth once neeraj* FINASTERIDE 5 MG TABLET Take 5 mg by mouth once daily. ASPIRIN 81 MG TABLET,DELAYED * Take 81 mg by mouth once neeraj* METFORMIN 500 MG TABLET Take 2 tablets by mouth twice* CHOLECALCIFEROL (VITAMIN D3) * Take 1 tablet by mouth once d* Problem List As Of Date 08/20/2020 Noted Resolved ESOPHAGEAL REFLUX [K21.9] Asthma [J45.909] 06/28/2019 CALCULUS OF KIDNEY [N20.0] Diverticulitis of colon (without mention of hem* 12/22/2014 CHRONIC LIVER DIS NOS [K76.9] 06/22/2006 Abdominal pain, generalized [R10.84] 08/03/2006 12/22/2014 Acute gastritis without mention of hemorrhage [*09/27/2006 12/22/2014 Unilateral or unspecified femoral hernia withou*09/27/2006 12/22/2014 Incisional hernia without mention of obstructio*02/05/2007 12/22/2014 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] 10/17/2007 11/03/2016 Unspecified vitamin D deficiency [E55.9] 04/09/2008 11/03/2016 BPH W URINARY OBS/LUTS [N40.1, N13.8] 07/29/2008 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] 03/31/2009 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] 02/16/2010 GERD (gastroesophageal reflux disease) [K21.9] 04/19/2010 Diaphragmatic hernia without mention of obstruc*04/27/2010 Hypothyroidism [E03.9] 08/21/2010 Hyperlipidemia with target LDL less than 100 [E*04/26/2011 Sprain of lumbar region [S33.5XXA] 09/01/2011 10/27/2011 Morbid obesity [E66.01] 04/23/2012 Vitamin D deficiency [E55.9] 07/05/2013 Lumbar disc disease with radiculopathy [M51.16] 10/09/2013 Essential hypertension, benign [I10] 01/28/2014 Family history of colon cancer in mother [Z80.0]12/22/2014 Special screening for malignant neoplasms, colo*01/29/2015 01/29/2015 Iron deficiency anemia secondary to inadequate *03/31/2016 Iron deficiency anemia due to chronic blood los*04/15/2016 04/15/2016 Gastroesophageal reflux disease [K21.9] 04/15/2016 04/15/2016 Acute appendicitis with localized peritonitis [*05/09/2016 03/26/2018 Elevated liver function tests [R79.89] 03/26/2018 04/20/2020 Controlled type 2 diabetes mellitus with stage *03/26/2018 Chronic anxiety [F41.9] 06/28/2019 Parkinson's disease (HCC) [G20] 07/30/2019 Obesity, Class III, BMI >= 40 [E66.01] 07/30/2019 Blanco's cyst of knee, right [M71.21] 10/28/2019 Restless leg syndrome [G25.81] 04/20/2020 Severe anxiety with panic [F41.0] 07/20/2020 Encounter Status:Closed by ASAF CLEMENS on 08/20/20 [facility] Summary Purpose Family History No Family History Records Found Advance Directives No Advanced Directives Records Found Additional Source Comments (unrecognized sect ion and content) No Status Records Found INFORMATION SOURCE (unrecogn ized section and content) FOR RECORDS PERTAINING TO PATIENTS WHO ARE OR HAVE BEEN ENROLLED IN A CHEMICAL DEPENDENCY/SUBSTANCEABUSE PROGRAM, SOME INFORMATION MAY BE OMITTED. This clinical summary was aggregated from multiple sources. Caution should be exercised in using it in the provision of clinical care. This summary normalizes information from multiple sources, and as a consequence, information in this document may materially change the coding, format and clinical context of patient data. In addition, data may be omitted in some cases. CLINICAL DECISIONS SHOULD BE BASED ON THE PRIMARY CLINICAL RECORDS. [facility] [facility]. provides no warranty or guarantee of the accuracy or completeness of information in this document.
[2023-07-16 16:08] LABS: Absolute Neutrophil Count 4.8 X10^3/uL (2.0-7.7); Basophil# 0.06 X10^3/uL; Basophil% 0.8 % (0-1); Eosinophil# 0.23 X10^3/uL; Eosinophils% 3.2 % (0-5); Hematocrit 38.9 % (40-54); Hemoglobin 12.4 g/dL (13.0-16.5); Lymphocyte % 18.3 % (19-41); Mean Corp Hgb Conc 31.9 g/dL (32-36); Mean Corpuscular Hgb 28.7 pg (27.0-32.0); Mean Platelet Vol. 9.1 fl (6.2-12.0); Monocyte% 9.9 % (0-10); NRBC Flagged by Analyzer 0 % (0-5); Neutrophil # 4.76 X10^3/uL (2.7-7.7); Neutrophil % 67.2 % (47-70); Platelet Count 269 K/mm3 (150-450); RBC Distribution Width CV 15.5 % (11.6-14.6); Red Blood Count 4.32 M/mm3 (4.6-6.2); White Blood Count 7.1 K/mm3 (4.4-11.0)
--- NOTE | 2023-07-16 16:15 | RAD_ITS ---
INDICATION: chest pain EXAMINATION/TECHNIQUE: X-RAY - XR Chest 1 View COMPARISON: October 26, 2021 FINDINGS: LINES/DEVICES: Stable sternotomy wires. LUNGS: Possible left basilar infiltrate/atelectasis. No pneumothorax. MEDIASTINUM AND CARDIOVASCULAR STRUCTURES: Cardiac silhouette not enlarged. Central airways and mediastinal contour are unremarkable. BONES AND SOFT TISSUES: Degenerative changes and scoliosis. Hiatal hernia. RAD/Chest 1 View (Portable) IMPRESSION: Possible mild left basilar infiltrate/atelectasis. Electronically Signed: Aquilino Zafar DO at 16:32 EST Reading Location ID and State: [facility] / [place] Tel [phone], Service support ,
[2023-07-16 16:22] LABS: Anion Gap 10 (5-15); BUN 31 mg/dL (7-18); BUN/Creat Ratio 15.5 RATIO (10-20); Chloride 105 mmol/L (98-107); EST Glomerular Filtration Rate 34 mL/min (>60); Est Glom Filt Rate - Afr Amer 41 mL/min (>60); Estimated Creatinine Clearance 29.81 ml/min; Glucose 107 mg/dL (74-106); Potassium 4.6 mmol/L (3.5-5.1); Sodium Level 138 mmol/L (136-145); Troponin-I HS (w/2H Reflex) 16 pg/mL (3.0-78.0)
[2023-07-16 16:23] LABS: BNP,B-Type NATRIURETIC PEPTIDE 76.2 pg/mL (0-100)
[2023-07-16 17:19] LABS: D-Dimer Quantitative (DVT/PE) 0.61 FEU/ug/m (0.27-0.49)
[2023-07-16 17:53] LABS: Reflex Troponin-HS? (from REC) Y
[2023-07-16 18:36] LABS: Troponin-I HS 18 pg/mL (3.0-78.0)
== END 2023-07-16 20:00 | disposition home or self-care (01) ==
PROVIDERS: Nurse Practitioner; Emergency Provider Emergency Medicine; PCP Internal Medicine; Visit Provider Emergency Medicine
DX: R06.02 Shortness of breath (principal); E11.22 Type 2 diabetes mellitus with diabetic chronic kidney disease; Z68.41 Body mass index [BMI] 40.0-44.9, adult; Z79.4 Long term (current) use of insulin; N18.30 Chronic kidney disease, stage 3 unspecified; Z87.891 Personal history of nicotine dependence; I12.9 Hypertensive chronic kidney disease with stage 1 through stage 4 chronic kidney disease, or unspecified chronic kidney disease; E78.5 Hyperlipidemia, unspecified; E66.9 Obesity, unspecified; I25.10 Atherosclerotic heart disease of native coronary artery without angina pectoris; Z86.73 Personal history of transient ischemic attack (TIA), and cerebral infarction without residual deficits; Z79.899 Other long term (current) drug therapy; N40.0 Benign prostatic hyperplasia without lower urinary tract symptoms; Z79.82 Long term (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 of aspirin; Z79.02 Long term (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 of antithrombotics/antiplatelets; Z79.84 Long term (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 of oral hypoglycemic drugs; E03.9 Hypothyroidism, unspecified; G20.A1 Parkinson's disease without dyskinesia, without mention of fluctuations; K21.9 Gastro-esophageal reflux disease without esophagitis; Z90.49 Acquired absence of other specified parts of digestive tract; Z95.5 Presence of coronary angioplasty implant and graft
CPT/HCPCS: 71045; 80048; 83880; 84484; 85025; 85379; 87631; 93005; 94640; 99285; A4216

== ENCOUNTER → 2023-09-22 | Outpatient (CLI) | payer MEDICARE, SELFPAY ==
[2023-09-22 10:46] LABS: Absolute Lymphocyte Count 1.66 X10^3/uL (0.83-4.51); Absolute Neutrophil Count 5.5 X10^3/uL (2.0-7.7); Basophil# 0.03 X10^3/uL; Basophil% 0.4 % (0-1); Eosinophil# 0.08 X10^3/uL; Hematocrit 41.1 % (40-54); Hemoglobin 13.3 g/dL (13.0-16.5); Lymphocyte # 1.66 X10^3/ul (0.83-4.51); Lymphocyte % 20.4 % (19-41); Mean Corp Hgb Conc 32.4 g/dL (32-36); Mean Corpuscular Hgb 28.8 pg (27.0-32.0); Monocyte# 0.71 X10^3/uL; Monocyte% 8.7 % (0-10); NRBC Flagged by Analyzer 0 % (0-5); Neutrophil # 5.52 X10^3/uL (2.7-7.7); Neutrophil % 67.8 % (47-70); Platelet Count 255 K/mm3 (150-450); RBC Distribution Width CV 16.9 % (11.6-14.6); RBC Distribution Width SD 54.4 fl (35.1-43.9); Red Blood Count 4.62 M/mm3 (4.6-6.2); White Blood Count 8.1 K/mm3 (4.4-11.0)
[2023-09-22 11:03] LABS: Hemoglobin A1c 6.4 % (3.8-5.6)
[2023-09-22 11:13] LABS: Vitamin D,25 Hydroxy 81.7 ng/mL
[2023-09-22 11:20] LABS: ALB/GLOB Ratio 1.1 RATIO (0.9-2.4); AST(SGOT) 10 U/L (15-37); Alanine Aminotransfer ALT/SGPT 8 U/L (16-61); Albumin, Serum 3.7 g/dL (3.2-5.0); Alkaline Phosphatase 32 U/L (45-117); Anion Gap 7 (5-15); BUN 28 mg/dL (7-18); Chloride 100 mmol/L (98-107); Cholesterol 154 mg/dL (200); Creatinine, Serum 1.87 mg/dL (0.70-1.30); EST Glomerular Filtration Rate 37 mL/min (>60); Est Glom Filt Rate - Afr Amer 44 mL/min (>60); Globulin 3.5 g/dL (2.2-4.2); Glucose 126 mg/dL (74-106); High Density Lipoprotein 50 mg/dL; Potassium 4.5 mmol/L (3.5-5.1); Protein, Total 7.2 g/dL (6.4-8.2); Sodium Level 136 mmol/L (136-145); Thyroid Stim Hormone (TSH) 2.98 uIU/mL (0.358-3.74); Triglycerides 145 mg/dL; Very Low Density Lipoprotein 29 mg/dL (5-40)
== END | disposition home or self-care (01) ==
LOC: LAB 09:33
PROVIDERS: PCP Internal Medicine; Referring Provider Internal Medicine; Visit Provider Internal Medicine
DX: E11.22 Type 2 diabetes mellitus with diabetic chronic kidney disease (principal); G20.A1 Parkinson's disease without dyskinesia, without mention of fluctuations; N18.30 Chronic kidney disease, stage 3 unspecified; E66.9 Obesity, unspecified; F41.9 Anxiety disorder, unspecified; I12.9 Hypertensive chronic kidney disease with stage 1 through stage 4 chronic kidney disease, or unspecified chronic kidney disease; G47.33 Obstructive sleep apnea (adult) (pediatric); Z95.5 Presence of coronary angioplasty implant and graft; E78.5 Hyperlipidemia, unspecified; Z13.220 Encounter for screening for lipoid disorders; E55.9 Vitamin D deficiency, unspecified
CPT/HCPCS: 36415; 80053; 80061; 82306; 83036; 84443; 85025

== ENCOUNTER 2023-11-12 14:14 | Emergency (ER) | payer MEDICARE, SELFPAY ==
[2023-11-12 14:15] VITALS: BP 131/72; PULSE 73; RESP 22; TEMP 36.8; O2SAT 95
--- NOTE | 2023-11-12 14:22 | CT_ITS ---
EXAM: CT SPINE - CERVICAL WITHOUT IV REASON FOR EXAM: Male, 88 years old. NECK PAIN FALL, TRAUMA HISTORY: NECK PAIN FALL, TRAUMA Individualized dose optimization techniques were used for this CT. TECHNIQUE: Multiplanar images were obtained of the cervical spine. IV contrast was not utilized. COMPARISON: None. FINDINGS: The vertebral bodies do maintain their height. The odontoid process is intact. No pre-vertebral soft tissue swelling is seen. The intravertebral disc height is lost. There are scattered lymph nodes in the neck. There are degenerative changes of the osseous structures. There is bilateral facet arthropathy. There are scattered levels of foraminal stenosis. There are vascular calcifications. CT/Spine Cervical without Contras IMPRESSION: Degenerative changes of the cervical spine. There are no acute findings. Electronically Signed: Mark Cadena MD at 15:11 EDT ,
--- NOTE | 2023-11-12 14:22 | CT_ITS ---
STUDY: CT BRAIN WITHOUT CONTRAST REASON FOR EXAM: Male, 88 years old. FALL Individualized dose optimization techniques were used for this CT. TECHNIQUE: Transaxial CT imaging of the brain was performed without administration of intravenous contrast material. COMPARISON: 02/01/2022 FINDINGS: There are calcifications around the carotid artery. These are noted in the cavernous carotid arteries. Normal calvarium. There is no underlying fracture. Soft tissue swelling of the scalpsuperiorly on the left. There is mild cerebral atrophy with widening of the extra-axial spaces and ventricular dilatation. There are areas of decreased attenuation within the white matter tracts of the supratentorial brain, consistent with microvascular disease changes. Normal basal ganglia and thalami. Normal brainstem. There is mild cerebellar atrophy. There is no intracranial hemorrhage. There are no findings of an acute ischemic infarction. Normal visualized paranasal sinuses. ASPECTS Score for Acute Strokes: 03/28 CT/Brain/Head without Contrast IMPRESSION: There is no underlying fracture. Soft tissue swelling of the scalpsuperiorly on the left. Electronically Signed: Mark Cadena MD at 15:41 EDT ,
--- NOTE | 2023-11-12 14:25 | EX.ED.DYSGE1 ---
HPI <NEERAJ Sylvester - Last Filed: 11/12/23 17:02> History of Present Illness Chief Complaint: Fall Narrative Narrative: 88-year-old male has chronic left hip pain and states it caused him to lose his balance and fall. He struck the left side of his head on the kitchen cupboard landed on the ground. No loss of consciousness. He is on aspirin/Plavix for history of stents. He states his head is sore over the lacerated area but he denies headache, vision changes, nausea or vomiting, or neck or back pain. [facility] <NEERAJ Sylvester - Last Filed: 11/12/23 17:02> [facility] Medical History Acute otitis media, left Anemia Appendicitis Atherosclerotic heart disease of [place] coronary artery without angina pectoris Benign prostatic hypertrophy BMI 40.0-44.9, adult Body mass index (BMI) 40.0-44.9, adult BPH (benign prostatic hyperplasia) Chest pain CKD (chronic kidney disease) stage 3, GFR 30-59 ml/min Cough Debility Diabetes mellitus type 2 in obese 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 Dyspnea Essential (primary) hypertension GERD (gastroesophageal reflux disease) GERD (gastroesophageal reflux disease) Hiatal hernia History of CVA (cerebrovascular accident) HLD (hyperlipidemia) Hypothyroidism Iron deficiency anemia 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 Nephrolithiasis Nonrheumatic tricuspid (valve) insufficiency Obesity Obesity DANYELL (obstructive sleep apnea) Osteoarthritis Palpitations Premature ventricular contractions Right bundle branch block (RBBB) with left anterior fascicular block Right flank pain Shortness of breath Stroke/cerebrovascular accident Syncope and collapse Upper respiratory infection Vocal cord dysfunction Home Medications ?Medication ?Instructions ?Recorded ?Last Taken ?Type cholecalciferol (vitamin D3) 125 5,000 unit PO DAILY vitamin 06/29/15 02/10/20 History mcg (5,000 unit) capsule finasteride 5 mg tablet 5 mg PO DAILY prostate 06/29/15 10/29/21 History aspirin 81 mg tablet,delayed 81 mg PO DAILY heart health 07/24/15 10/29/21 History release acetaminophen 500 mg tablet 1,000 mg (2 x 500 mg) PO Q6H PRN 02/19/20 Unknown Rx PRN Pain Score 1-3/10 Elizabeth Figueroa #1 ea 10/14/20 Unknown Rx vitamins A,C,H-iogg-yyawxp 2,148 2 tab PO DAILY 12/17/20 Unknown History mcg-113 mg-45 mg-17.4 mg tablet (PreserVision AREDS) pen needle, diabetic 32 gauge x #100 ea 12/25/20 Unknown Rx 1/4 levothyroxine 50 mcg tablet 50 mcg PO DAILY thyroid #90 tabs 02/07/23 Unknown Rx furosemide 40 mg tablet 40 mg PO DAILY Fluid retention #90 02/28/23 Unknown Rx tabs ranolazine 500 mg tablet,extended 500 mg PO BID #180 tabs 03/06/23 Unknown Rx release,12 hr escitalopram oxalate 10 mg tablet 10 mg PO DAILY #90 tabs 03/08/23 Unknown Rx insulin human U-100 NPH-regulr 50 unit subcut BID diabetes 03/14/23 Unknown History 70-30 mix 100 unit/mL subcutaneous susp pantoprazole 40 mg tablet,delayed See Rx Instructions .Route 03/15/23 Unknown Rx release .COMPLEX #90 tabs isosorbide mononitrate 30 mg 30 mg PO DAILY Ask Dr #90 tabs 04/12/23 Unknown Rx tablet,extended release 24 hr trazodone 50 mg tablet 25 mg (1/2 x 50 mg) PO QHS PRN 07/24/23 Unknown Rx sleep #30 tabs carbidopa 25 mg-levodopa 100 mg See Rx Instructions .Route 07/27/23 Unknown Rx tablet (Sinemet) .COMPLEX #150 tabs benzonatate 100 mg capsule 200 mg (2 x 100 mg) PO TID PRN 08/10/23 Unknown Rx cough #30 caps dextromethorphan-guaifenesin 10 10 ml PO Q8H PRN cough #237 mL 08/10/23 Unknown Rx mg-200 mg/5 mL oral liquid (Adult Wal-Tussin DM Max) clopidogrel 75 mg tablet 75 mg PO DAILY Cholestrol #90 tabs 09/11/23 Unknown Rx amlodipine 5 mg tablet 5 mg PO DAILY BP #90 tabs 09/19/23 Unknown Rx metformin 1,000 mg tablet 500 mg (1/2 x 1,000 mg) PO BIDCM 09/25/23 Unknown Rx diabetes #180 tabs pravastatin 20 mg tablet 20 mg PO DAILY cholesterol #90 tabs 10/03/23 Unknown Rx Allergy/AdvReac Type Severity Reaction Status Date / Time lisinopril Allergy Mild Cough Verified 11/12/23 14:18 losartan AdvReac Intermediate Jitters Verified 11/12/23 14:18 metoprolol AdvReac Intermediate Jitters Verified 11/12/23 14:18 pioglitazone HCl (From Actos) AdvReac Mild Upset Verified 11/12/23 14:18 Stomach Family History Mother CAD (coronary artery disease) CVA (cerebral vascular accident) Brother CAD (coronary artery disease) Myocardial infarction Diabetes Heart disease Daughter Asthma Father Cancer bone cancer Sister Breast cancer Asthma Diabetes Heart disease Sister Cardiomyopathy Surgical History History of appendectomy History of back surgery History of coronary artery stent placement (07/01/15) History of left heart catheterization (11/01/21) History of lymph node biopsy History of right and left heart catheterization (07/02/18) Social History (Updated 11/12/23 @ 14:19 by Angeles Giles) household members: spouse housing: house Smoking Status: Former smoker pack-years: 2 how long ago did patient quit smokin+ years ago alcohol intake: former substance use type: does not use caffeine: Yes Type: coffee Number of servings: 2 what type of physical activity do you participate in: none seatbelt use: always do you feel safe at home: Yes ROS <NEERAJ Sylvester - Last Filed: 11/12/23 17:02> ROS ED ROS Narrative Eyes: Negative for visual change. CVS: Negative for chest pain. Respiratory: Negative for shortness of breath. GI: Negative for nausea, vomiting Neuro: Negative for headache, motor/sensory dysfunction. Skin: Positive for wound. EXAM <NEERAJ Sylvester - Last Filed: 11/12/23 17:02> Physical Exam Narrative Exam Narrative: CONST: Patient sitting in no acute distress. EYES: Normal inspection. HEAD: 8 cm curvilinear left parietal occipital laceration with associated hematoma, no deformity or crepitus, no raccoon eyes or daniel sign, no hemotympanum, no nasal septal hematoma, no CSF otorrhea or rhinorrhea. NECK: Normal inspection. No midline spinal tenderness, no step off or crepitus. RESP: No respiratory distress, CTAB. Chest wall nontender. CVS: Regular rate and rhythm, no murmur, no gallop. ABD: Soft and nontender, no guarding or rebound, nondistended. Back: Normal inspection, no midline tenderness. EXTREMITIES: Normal appearance, moving upper and lower extremities, no bony tenderness, 2+ radial and DP pulses. NEURO: Alert and answering questions appropriately. PSYCH: Normal affect. Const Vital Signs: 11/12/23 14:15 11/12/23 14:34 11/12/23 16:14 Temperature 98.2 F Temperature Source Oral Pulse Rate 73 71 Respiratory Rate 22 H 16 Respiratory Effort Normal Non-Labored Blood Pressure 131/72 H 120/71 Blood Pressure Mean 91 87 Pulse Ox 95 98 Oxygen Delivery Method Room Air Room Air 11/12/23 16:30 Temperature 97.5 F L Temperature Source Pulse Rate 79 Respiratory Rate 16 Respiratory Effort Blood Pressure 128/71 H Blood Pressure Mean 90 Pulse Ox 97 Oxygen Delivery Method <Dr. Thierno Trevizo DO - Last Filed: 11/12/23 17:43> Physical Exam Const Vital Signs: 11/12/23 14:15 11/12/23 14:34 11/12/23 16:14 Temperature 98.2 F Temperature Source Oral Pulse Rate 73 71 Respiratory Rate 22 H 16 Respiratory Effort Normal Non-Labored Blood Pressure 131/72 H 120/71 Blood Pressure Mean 91 87 Pulse Ox 95 98 Oxygen Delivery Method Room Air Room Air 11/12/23 16:30 Temperature 97.5 F L Temperature Source Pulse Rate 79 Respiratory Rate 16 Respiratory Effort Blood Pressure 128/71 H Blood Pressure Mean 90 Pulse Ox 97 Oxygen Delivery Method [facility] <NEERAJ Sylvester - Last Filed: 11/12/23 17:02> [facility] Narrative Medical decision making narrative: History gathered from: Patient and family members Patient had a mechanical fall and struck his head on the upper sustaining a laceration to the left parietal occipital region. No LOC. He is on aspirin/Plavix. He is awake alert with stable vital signs. He is neurologically intact and there is no signs of basilar skull fracture and no other injuries from the fall. CT brain and C-spine show no acute findings. The laceration did not well-approximated with pressure to staple site closed with 8 sutures. See procedure note for details. His tetanus was updated, head injury return precautions given, and he was discharged in stable condition. Radiography Diagnostic Testing: Clinical Impression(s) from Imaging Studies Brain CT 11/12/23 14:22 IMPRESSION: There is no underlying fracture. Soft tissue swelling of the scalpsuperiorly on the left. Electronically Signed: Mark Cadena MD at 15:41 EDT , Cervical Spine CT 11/12/23 14:22 IMPRESSION: Degenerative changes of the cervical spine. There are no acute findings. Electronically Signed: Mark Cadena MD at 15:11 EDT , <Dr. Thierno Trevizo, DO - Last Filed: 11/12/23 17:43> [facility] Narrative Medical decision making narrative: History gathered from: Patient and family members Patient had a mechanical fall and struck his head on the upper sustaining a laceration to the left parietal occipital region. No LOC. He is on aspirin/Plavix. He is awake alert with stable vital signs. He is neurologically intact and there is no signs of basilar skull fracture and no other injuries from the fall. CT brain and C-spine show no acute findings. The laceration did not well-approximated with pressure to staple site closed with 8 sutures. See procedure note for details. His tetanus was updated, head injury return precautions given, and he was discharged in stable condition. This patient was seen with a PA/MARKET MANAGER Individually assessed they patient including history and physical. I have reviewed everything on the chart that is available and agree with the documentation provided by the PA/MARKET MANAGER including discussion about the assessment, treatment plan, discussion, and return precautions. Patient presenting after mechanical fall struck the back of his head with large laceration. This was repaired by the PA. Please see procedure note. CT of the brain was obtained as well as C-spine and these were both negative. Patient was able to ambulate and was steady. Discharged home in stable condition with his family. Return precautions were discussed. Wound care and return for suture removal discussed. Radiography Diagnostic Testing: Clinical Impression(s) from Imaging Studies Brain CT 11/12/23 14:22 IMPRESSION: There is no underlying fracture. Soft tissue swelling of the scalpsuperiorly on the left. Electronically Signed: Mark Cadena MD at 15:41 EDT , Cervical Spine CT 11/12/23 14:22 IMPRESSION: Degenerative changes of the cervical spine. There are no acute findings. Electronically Signed: Mark Cadena MD at 15:11 EDT , Procedures <NEERAJ Sylvester - Last Filed: 11/12/23 17:02> Lacerations left scalp laceration: Length: 3.15 in Depth: Sub Q Shape: Linear Prep: Sterile Conditions Laceration repair: Irrigated and Lidocaine with epi Irrigated (ml): 200 Number of Sutures/Erik: 8 Suture Information: Ethilon and 4-0 Discharge Plan Triage Chief Complaint: Fall ED Midlevel Provider: Rocío Ro ED Provider: Thierno Trevizo Dx/Rx/DC Orders Clinical Impression: Closed head injury, Laceration of scalp Instructions: ED Head Injury (Adult), ED Laceration Scalp Stitches or Squires Prescriptions: No Action PreserVision AREDS 7,160 unit- 113 mg-100 unit tablet 2 tab PO DAILY Rx Instructions: administer with AM and PM meals carbidopa-levodopa [Sinemet] 25-100 mg tablet See Rx Instructions .ROUTE .COMPLEX Qty: 150 9RF Rx Instructions: Take 2 tabs orally every morning, 1 tab every mid-day, and 2 tabs every night pantoprazole 40 mg tablet,delayed release (DR/EC) See Rx Instructions .ROUTE .COMPLEX Qty: 90 3RF Dose Instruction: TAKE 1 TABLET BY MOUTH ONCE DAILY FOR REFLUX Rx Instructions: TAKE 1 TABLET BY MOUTH ONCE DAILY FOR REFLUX trazodone 50 mg tablet 25 mg PO QHS PRN (Reason: sleep) Qty: 30 2RF benzonatate 100 mg capsule 200 mg PO TID PRN (Reason: cough) Qty: 30 0RF Adult Wal-Tussin DM Max 10-200 mg/5 mL liquid 10 ml PO Q8H PRN (Reason: cough) Qty: 237 0RF cholecalciferol (vitamin D3) 5,000 UNIT capsule 5,000 unit PO DAILY Patient Comments: SUPPLIMENT finasteride 5 MG tablet 5 mg PO DAILY Patient Comments: PROSTATE insulin NPH and regular human 100 unit/mL (70-30) suspension 50 unit SC BID Patient Comments: BLOOD SUGAR, PT USES SLIDING SCALE Rx Instructions: 34 units in the AM 28 units in the PM and sliding scale aspirin 81 MG tablet,delayed release (DR/EC) 81 mg PO DAILY acetaminophen 500 MG tablet 1,000 mg PO Q6H PRN PRN (Reason: Pain Score 1-3/10) 0RF (DME) Handi cap Placard See Rx Instructions .Route .MEDSUPPLY Qty: 1 0RF Rx Instructions: difficulty walking short distance. expires in 5 years (DME) pen needle, diabetic 32 gauge x 1/4 needle See Rx Instructions .ROUTE .MEDSUPPLY Qty: 100 2RF Rx Instructions: As directed levothyroxine 50 mcg tablet 50 mcg PO DAILY Qty: 90 3RF furosemide 40 mg tablet 40 mg PO DAILY Qty: 90 3RF ranolazine 500 mg tablet extended release 12 hr 500 mg PO BID Qty: 180 3RF escitalopram oxalate 10 mg tablet 10 mg PO DAILY Qty: 90 3RF Rx Instructions: Take 1/2 tablet for 4 days then increase to 1 tablet. isosorbide mononitrate 30 mg tablet extended release 24 hr 30 mg PO DAILY Qty: 90 3RF clopidogrel 75 mg tablet 75 mg PO DAILY Qty: 90 3RF amlodipine 5 mg tablet 5 mg PO DAILY Qty: 90 3RF metformin 1,000 mg tablet 500 mg PO BIDCM Qty: 180 3RF pravastatin 20 mg tablet 20 mg PO DAILY Qty: 90 3RF Primary Care Provider: Marie Maciel Referrals: Marie Maciel MD [Primary Care Provider] - Activity Restrictions/Additional Instructions: 8 stitches need removed in 1 week. Ice and take Tylenol as needed. Print Language: Macedonian Disposition Disposition: Home, Self Care Discharge Date/Time: 11/12/23 16:40
[2023-11-12] MEDS: Diphth,Pertuss(Acell),Tet Vac 0.5 ML Vial IM (14:30)
[2023-11-12] MEDS: Lidocaine 1% /Epi 1:100 (20ml) 20 ML Vial INFILT (14:31)
[2023-11-12 16:14] VITALS: BP 120/71; PULSE 71; RESP 16; O2SAT 98
[2023-11-12 16:30] VITALS: BP 128/71; PULSE 79; RESP 16; TEMP 36.4; O2SAT 97
== END 2023-11-12 16:40 | disposition home or self-care (01) ==
PROVIDERS: Emergency Provider Student in an Organized Health Care Education/Training Program; PCP Internal Medicine; Visit Provider Student in an Organized Health Care Education/Training Program
DX: S01.01XA Laceration without foreign body of scalp, initial encounter (principal); E11.22 Type 2 diabetes mellitus with diabetic chronic kidney disease; Z79.4 Long term (current) use of insulin; N18.30 Chronic kidney disease, stage 3 unspecified; Z87.891 Personal history of nicotine dependence; W18.39XA Other fall on same level, initial encounter; Y92.89 Other specified places as the place of occurrence of the external cause; I25.10 Atherosclerotic heart disease of native coronary artery without angina pectoris; I12.9 Hypertensive chronic kidney disease with stage 1 through stage 4 chronic kidney disease, or unspecified chronic kidney disease; Z86.73 Personal history of transient ischemic attack (TIA), and cerebral infarction without residual deficits; E78.5 Hyperlipidemia, unspecified; N40.0 Benign prostatic hyperplasia without lower urinary tract symptoms; Z79.899 Other long term (current) drug therapy; Z79.82 Long term (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 of aspirin; E03.9 Hypothyroidism, unspecified; K21.9 Gastro-esophageal reflux disease without esophagitis; Z79.02 Long term (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 of antithrombotics/antiplatelets; Z79.84 Long term (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 of oral hypoglycemic drugs; Z90.49 Acquired absence of other specified parts of digestive tract; Z95.5 Presence of coronary angioplasty implant and graft
CPT/HCPCS: 12004; 70450; 72125; 90715; 99283

== ENCOUNTER 2023-12-19 16:18 | Emergency (ER) | payer MEDICARE, SELFPAY ==
[2023-12-19 16:18] VITALS: BP 151/81; PULSE 69; RESP 17; TEMP 36.6; O2SAT 93
[2023-12-19 16:24] VITALS: BMI 41.8
--- NOTE | 2023-12-19 16:54 | CT_ITS ---
STUDY: CT BRAIN WITHOUT CONTRAST REASON FOR EXAM: Male, 88 years old. trauma RADIATION DOSAGE (If Supplied By Facility): CTDIvol = ( 44.99 ) mGy, DLP = ( 779.24 ) mGycm TECHNIQUE: Transaxial CT imaging of the brain was performed without administration of intravenous contrast material. Individualized dose optimization techniques were used for this CT. COMPARISON: No relevant priors. FINDINGS: There is hemorrhage in the scalp overlying the occiput however there is no associated acute skull fracture . Calcific plaquing of the cavernous carotids Mild atrophy and periventricular white matter ischemic changes.. Normal basal ganglia and thalami. Normal brainstem. Normal cerebellum. There is no intracranial hemorrhage. There are no findings of an acute ischemic infarction. Normal visualized paranasal sinuses. Postsurgical changes of the orbits CT/Brain/Head without Contrast IMPRESSION: Soft tissue hemorrhage in the scalp without evidence for associated skull fracture or acute intracranial bleed Electronically Signed: Geo Simeon MD at 17:28 EDT ,
--- NOTE | 2023-12-19 16:55 | EDS_ITS ---
HPI HPI - Fall History of Present Illness Chief Complaint: Fall Informant: patient Occured/Mechanism Occurred: Today Mechanism/Context: Yes trip Narrative: Going up 1-2 steps from his garage into his home. Usually ambulates: Without assistance Pain/Injury Pain Location: head and lower extremity Quality of Pain: Dull and Aching Current Severity: Mild Maximum Severity: Mild Associated Symptoms Associated Symptoms: Negative for Parasthesias, Weakness, Loss of function, Inability to ambulate, Loss of consciousness or Amnesia Narrative Narrative: 88-year-old male extensive past medical history of diabetes, CAD with stent on both Plavix and aspirin, hypertension, CKD and Parkinson's disease. He was in his garage walking in his home there is several steps he can lost his balance going up the steps fell backwards and he fell a second time neighbors and there helped him up. Hit his head on something on the garage floor causing a laceration to the back of his scalp. He denies any neck pain. He actually fell 3 weeks ago was seen in the emergency department was not admitted at that time. Had to have suture repair of his scalp. He has been complaining of some left hip discomfort since that time. He believes x-rays at that time and they were negative. 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 Obesity History of CVA (cerebrovascular accident) Stroke/cerebrovascular accident Body mass index (BMI) 40.0-44.9, adult GERD (gastroesophageal reflux disease) BPH (benign prostatic hyperplasia) Hypothyroidism Osteoarthritis CKD (chronic kidney disease) stage 3, GFR 30-59 ml/min Debility Iron deficiency anemia Syncope and collapse Right bundle branch block (RBBB) with left anterior fascicular block Premature ventricular contractions Essential (primary) hypertension Vocal cord dysfunction DANYELL (obstructive sleep apnea) Hiatal hernia BMI 40.0-44.9, adult Dyspnea Cough Shortness of breath Obesity Upper respiratory infection Right flank pain Anemia Atherosclerotic heart disease of [place] coronary artery without angina pectoris 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 Palpitations Nonrheumatic tricuspid (valve) insufficiency HLD (hyperlipidemia) Chest pain Appendicitis Benign prostatic hypertrophy GERD (gastroesophageal reflux disease) Nephrolithiasis Diabetes mellitus type 2 in obese Home Medications ?Medication ?Instructions ?Recorded ?Last Taken ?Type cholecalciferol (vitamin D3) 125 5,000 unit PO DAILY vitamin 06/29/15 02/10/20 History mcg (5,000 unit) capsule finasteride 5 mg tablet 5 mg PO DAILY prostate 06/29/15 10/29/21 History aspirin 81 mg tablet,delayed 81 mg PO DAILY heart health 07/24/15 10/29/21 History release acetaminophen 500 mg tablet 1,000 mg (2 x 500 mg) PO Q6H PRN 02/19/20 Unknown Rx PRN Pain Score 1-3/10 Handi cap Placard #1 ea 10/14/20 Unknown Rx vitamins A,C,N-myjf-gnekvy 2,148 2 tab PO DAILY 12/17/20 Unknown History mcg-113 mg-45 mg-17.4 mg tablet (PreserVision AREDS) pen needle, diabetic 32 gauge x #100 ea 12/25/20 Unknown Rx 1/4 levothyroxine 50 mcg tablet 50 mcg PO DAILY thyroid #90 tabs 02/07/23 Unknown Rx furosemide 40 mg tablet 40 mg PO DAILY Fluid retention #90 02/28/23 Unknown Rx tabs ranolazine 500 mg tablet,extended 500 mg PO BID #180 tabs 03/06/23 Unknown Rx release,12 hr escitalopram oxalate 10 mg tablet 10 mg PO DAILY #90 tabs 03/08/23 Unknown Rx insulin human U-100 NPH-regulr 50 unit subcut BID diabetes 03/14/23 Unknown History 70-30 mix 100 unit/mL subcutaneous susp pantoprazole 40 mg tablet,delayed See Rx Instructions .Route 03/15/23 Unknown Rx release .COMPLEX #90 tabs isosorbide mononitrate 30 mg 30 mg PO DAILY Ask Dr #90 tabs 04/12/23 Unknown Rx tablet,extended release 24 hr trazodone 50 mg tablet 25 mg (1/2 x 50 mg) PO QHS PRN 07/24/23 Unknown Rx sleep #30 tabs carbidopa 25 mg-levodopa 100 mg See Rx Instructions .Route 07/27/23 Unknown Rx tablet (Sinemet) .COMPLEX #150 tabs dextromethorphan-guaifenesin 10 10 ml PO Q8H PRN cough #237 mL 08/10/23 Unknown Rx mg-200 mg/5 mL oral liquid (Adult Wal-Tussin DM Max) clopidogrel 75 mg tablet 75 mg PO DAILY TIA #90 tabs 09/11/23 Unknown Rx amlodipine 5 mg tablet 5 mg PO DAILY BP #90 tabs 09/19/23 Unknown Rx metformin 1,000 mg tablet 500 mg (1/2 x 1,000 mg) PO BIDCM 09/25/23 Unknown Rx diabetes #180 tabs pravastatin 20 mg tablet 20 mg PO DAILY cholesterol #90 tabs 10/03/23 Unknown Rx Allergy/AdvReac Type Severity Reaction Status Date / Time lisinopril Allergy Mild Cough Verified 11/22/23 14:08 losartan AdvReac Intermediate Jitters Verified 11/22/23 14:08 metoprolol AdvReac Intermediate Jitters Verified 11/22/23 14:08 pioglitazone HCl (From Actos) AdvReac Mild Upset Verified 11/22/23 14:08 Stomach Family History Mother CAD (coronary artery disease) CVA (cerebral vascular accident) Brother CAD (coronary artery disease) Myocardial infarction Diabetes Heart disease Daughter Asthma Father Cancer bone cancer Sister Breast cancer Asthma Diabetes Heart disease Sister Cardiomyopathy Surgical History History of right and left heart catheterization (07/02/18) History of coronary artery stent placement (07/01/15) History of left heart catheterization (11/01/21) History of lymph node biopsy History of appendectomy History of back surgery Social History household members: spouse housing: house Smoking Status: Former smoker pack-years: 2 how long ago did patient quit smokin+ years ago alcohol intake: former substance use type: does not use caffeine: Yes Type: coffee Number of servings: 2 what type of physical activity do you participate in: none seatbelt use: always do you feel safe at home: Yes ROS ROS ED ROS Narrative Denies recent illness. Review of Systems ROS Unobtainable: Denies due to encephalopathy Constitutional Constitutional ED: Denies chills or fever(s) Eyes Eyes: Denies blurry vision ENT ENT ED: Denies ear pain Cardiovascular Cardiovascular: Denies chest pain or palpitations Respiratory/Chest Respiratory/Chest: Denies cough or dyspnea Gastrointestinal Gastrointestinal: Denies abdominal pain Genitourinary Genitourinary ED: Denies dysuria Musculoskeletal Musculoskeletal: Denies arthralgias or back pain Integumentary Denies abscess or Abrasions Neurologic Neurologic: Reports headache(s) Psychiatric Psychiatric: Denies anxiety or depression Endocrine Endocrinology: Denies polydipsia Hematologic/Lymphatic Hematologic/Lymphatic: Reports easy bleeding Allergic/Immunologic Allergic/Immunologic ED: Denies mouth swelling, tongue swelling or urticaria EXAM Physical Exam Narrative Exam Narrative: Well-appearing 88-year-old male. Vital signs stable afebrile. H EENT exam site dressing on the posterior scalp as laceration is bleeding. Dry [place]. There is no trauma sites. Neck nontender. Normal range of motion. Trachea midline. Lungs clear to auscultation bilaterally. Heart regular rhythm rate about 70 no murmur. Chest wall and ribs nontender. Abdomen soft nontender. No peritoneal signs. Back and spine nontender. Pelvic girdle intact. No shortening or rotation either hip. Left posterior buttock by his pelvis and proximal femur and hip is mildly tender. There is no shortening or rotation. He is able to flex and extend both knees and hips. Normal dorsi plantarflexion of his feet. 5/5 pigment and lacquer mixer strength. Normal range of motion of both upper extremities. Upper extremities nontender. Neurologically is awake alert. Answering questions and following commands. Const Vital Signs: 12/19/23 16:18 12/19/23 16:30 12/19/23 18:18 Temperature 98 F Temperature Source Temporal Pulse Rate 69 87 Respiratory Rate 17 12 Respiratory Effort Normal Respiratory Depth Normal Respiratory Pattern Normal Blood Pressure 151/81 H 140/95 H Blood Pressure Mean 104 110 Pulse Ox 93 98 Oxygen Delivery Method Room Air Room Air Room Air Positive well nourished and well developed; Negative for cachectic, contractures or unkempt General Appearance ED: well developed and NAD; Negative for unkempt, cachectic or contractures Nutritional Appearance: Negative for cachectic HEENT Reports normocephalic HEENT Narrative: Posterior scalp laceration with bleeding. trauma and tenderness Eyes PERRL General Eye ED: Negative for pale conjunctiva Neck full ROM, no lymphadenopathy and supple General: Negative for tenderness Chest Wall inspection of chest normal and palpation of chest normal Chest: Negative for other Resp normal respiratory effort, no retractions and clear to auscultation bilaterally Effort and Inspection: Negative for pain with movement Auscultation: Negative for rales, rhonchi, wheezes, diminished lung sounds or other Cardio regular rate, regular rhythm, S1 normal heart sound, S2 normal heart sound and no murmurs Rate: Negative for bradycardia or tachycardic Rhythm: Negative for abnormal rhythm Bruits: Negative for other GI non-tender, non-distended and no masses Inspection: Negative for abdominal distention Palpation: soft; Negative for guarding or rebound tenderness present Back/Spine no CVA tenderness General Back: Negative for CVA tenderness, erythema or ecchymosis Cervical Spine: Negative for cervical spine tenderness Thoracic Spine / Upper Back: Negative for ROM limited Lumbar Spine / Lower Back: Negative for lumbar spinal tenderness Neuro oriented x3, CN's II-XII intact bilaterally, moves all extremities and no focal motor deficits [place] Coma Scale: document GCS findings Spontaneous Obeys Commands Oriented 15 Sensorium / Orientation: alert, oriented to person, oriented to place and oriented to time; Negative for orientation impaired, confused, lethargic or stuporous Motor Exam: strength 5/5 throughout Psych mental status grossly normal and thought process normal Appearance: Negative for unkempt Attitude: No agitated Mood & Affect: Negative for depressed, anxious or tearful Skin Skin Narrative: Posterior scalp laceration. General Skin Exam: Negative for other Lesions: no lesions Rashes: no rashes Trauma: laceration linear MDM MDM MDM Narrative Medical decision making narrative: 88-year-old male has a history of Parkinson's and fell going into his house twice. Is a scalp laceration need to be repaired. He fell 3 weeks ago and was seen the emergency department did not need to be admitted. He has had left buttock and hip pain since that time. Will get a left hip x-ray. CT of his brain due to the fall, head injury and being on Plavix and aspirin. That will need to be either danita or suture repaired. I am getting screening labs. Patient's scalp had about a 2 inch laceration top of the scalp. On the back. Was locally anesthetized with lidocaine with epinephrine. Washed with Shur- Clens and saline and then irrigated with saline. Explored. Involve the skin and subcu tissue. Was actively bleeding. Once bleeding was controlled with direct pressure and the lidocaine with epinephrine I repaired it using 4-0 Ethilon sutures 7 interrupted sutures. Proper hemostasis wound closure obta ined. Patient was doing well. He did ambulate without difficulty with nursing. He has been observed for period of time he is currently doing well at 7:49 PM will be discharged home. Head injury instructions. History & Record Review Discussion w/independent historian: Patient Additional record(s) reviewed:: Prior inpatient record, Prior outpatient record, Prior ED visit and Prior labs Lab Data Attestation: I reviewed the patient's lab results. Lab results narrative: Last CBC shows white count of 5. H&H 11.3 and 35. Platelets 292. Electrolytes unremarkable gap 12. BUN 23 creatinine 1.98. Glucose 132. His blood counts and creatinine are consistent with prior labs. Labs: Laboratory Results - last 24 hr 12/19/23 14:36 WBC 5.0 RBC 3.93 L Hgb 11.3 L Hct 35.1 L MCV 89.3 MCH 28.8 MCHC 32.2 RDW Std Deviation 53.1 H RDW Coeff of Perla 16.2 H Plt Count 292 MPV 9.0 Immature Gran % (Auto) 0.800 Neut % (Auto) 59.8 Lymph % (Auto) 22.8 Yell % (Auto) 11.2 H Eos % (Auto) 4.6 Baso % (Auto) 0.8 Absolute Neuts (auto) 3.0 Absolute Lymphs (auto) 1.14 Nucleated RBC % 0 Sodium 138 Potassium 4.1 Chloride 102 Carbon Dioxide 24.0 Anion Gap 12 BUN 23 H Creatinine 1.98 H Estim Creat Clear Calc 30.18 Est GFR (MDRD) Af Amer 41 L Est GFR (MDRD) Non-Af 34 L BUN/Creatinine Ratio 11.6 Glucose 132 H Calcium 9.6 Radiography Diagnostic Testing: Clinical Impression(s) from Imaging Studies Brain CT 12/19/23 16:54 IMPRESSION: Soft tissue hemorrhage in the scalp without evidence for associated skull fracture or acute intracranial bleed Electronically Signed: Geo Simeon MD at 17:28 EDT , Hip/Pelvis X-Ray 12/19/23 17:10 IMPRESSION: Minor degenerative changes of the left hip. No acute hip or pelvic fracture. Incidental finding of linear lucency through the sacral wings most likely artifactual however if patient has back pain CT recommended for more definitive evaluation Electronically Signed: Geo Simeon MD at 17:26 EDT Reading Location ID and State: [facility] / [place] Tel , Service support , Left hip and pelvis x-ray, 3 views, interpreted myself shows no pelvic fracture. No hip fracture or dislocation. CT brain shows no acute bleed. Discharge Plan Triage Chief Complaint: Fall ED Provider: Caleb Cristina Dx/Rx/DC Orders Clinical Impression: Fall, Closed head injury, Laceration of scalp, Chronic anemia, Chronic kidney disease, Chronic anticoagulation Instructions: ED Head Injury (Adult), ED Laceration Scalp Stitches or [place] Prescriptions: No Action PreserVision AREDS 7,160 unit- 113 mg-100 unit tablet 2 tab PO DAILY Rx Instructions: administer with AM and PM meals carbidopa-levodopa [Sinemet] 25-100 mg tablet See Rx Instructions .ROUTE .COMPLEX Qty: 150 9RF Rx Instructions: Take 2 tabs orally every morning, 1 tab every mid-day, and 2 tabs every night pantoprazole 40 mg tablet,delayed release (DR/EC) See Rx Instructions .ROUTE .COMPLEX Qty: 90 3RF Dose Instruction: TAKE 1 TABLET BY MOUTH ONCE DAILY FOR REFLUX Rx Instructions: TAKE 1 TABLET BY MOUTH ONCE DAILY FOR REFLUX trazodone 50 mg tablet 25 mg PO QHS PRN (Reason: sleep) Qty: 30 2RF Adult Wal-Tussin DM Max 10-200 mg/5 mL liquid 10 ml PO Q8H PRN (Reason: cough) Qty: 237 0RF cholecalciferol (vitamin D3) 5,000 UNIT capsule 5,000 unit PO DAILY Patient Comments: SUPPLIMENT finasteride 5 MG tablet 5 mg PO DAILY Patient Comments: PROSTATE insulin NPH and regular human 100 unit/mL (70-30) suspension 50 unit SC BID Patient Comments: BLOOD SUGAR, PT USES SLIDING SCALE Rx Instructions: 39 units in the AM 28 units in the PM and sliding scale aspirin 81 MG tablet,delayed release (DR/EC) 81 mg PO DAILY acetaminophen 500 MG tablet 1,000 mg PO Q6H PRN PRN (Reason: Pain Score 1-3/10) 0RF (DME) Jiei catrina Stevensonard See Rx Instructions .Route .MEDSUPPLY Qty: 1 0RF Rx Instructions: difficulty walking short distance. expires in 5 years (DME) pen needle, diabetic 32 gauge x 1/4 needle See Rx Instructions .ROUTE .MEDSUPPLY Qty: 100 2RF Rx Instructions: As directed levothyroxine 50 mcg tablet 50 mcg PO DAILY Qty: 90 3RF furosemide 40 mg tablet 40 mg PO DAILY Qty: 90 3RF ranolazine 500 mg tablet extended release 12 hr 500 mg PO BID Qty: 180 3RF escitalopram oxalate 10 mg tablet 10 mg PO DAILY Qty: 90 3RF Rx Instructions: Take 1/2 tablet for 4 days then increase to 1 tablet. isosorbide mononitrate 30 mg tablet extended release 24 hr 30 mg PO DAILY Qty: 90 3RF clopidogrel 75 mg tablet 75 mg PO DAILY Qty: 90 3RF amlodipine 5 mg tablet 5 mg PO DAILY Qty: 90 3RF metformin 1,000 mg tablet 500 mg PO BIDCM Qty: 180 3RF pravastatin 20 mg tablet 20 mg PO DAILY Qty: 90 3RF Primary Care Provider: Marie Maciel Referrals: Marie Maciel MD [Primary Care Provider] - 10 Day for suture removal Activity Restrictions/Additional Instructions: Ice to your scalp. Clean gently daily with soap and water or peroxide and water. Stitches out in 10 days. Tylenol for pain. Hold your aspirin and Plavix for today and tomorrow and you can restart them on . Return if severe headache, vomiting or not acting right. Print Language: Guyanese Disposition Disposition: Home, Self Care
--- NOTE | 2023-12-19 17:10 | RAD_ITS ---
STUDY: X-RAY - PELVIS AND LEFT HIP REASON FOR EXAM: Male, 88 years old. fall TECHNIQUE: 3 views of the pelvis and hip. COMPARISON: None. FINDINGS: There is a non-specific bowel gas pattern. Normal visualized soft tissue structures. Normal bilateral iliac wings, sacroiliac joints and visualized sacrum. Normal bilateral superior and inferior pubic rami. Normal pubic symphysis. Normal bilateral ischial tuberosities. Status post multilevel lumbar fusion Normal visualized femoral head. Minor acetabular spurring.. Normal hip joint. RAD/HIP, UNI W/ Pelvis 2-3 Views IMPRESSION: Minor degenerative changes of the left hip. No acute hip or pelvic fracture. Incidental finding of linear lucency through the sacral wings most likely artifactual however if patient has back pain CT recommended for more definitive evaluation Electronically Signed: Geo Simeon MD at 17:26 EDT ,
[2023-12-19 17:25] LABS: Absolute Lymphocyte Count 1.14 X10^3/uL (0.83-4.51); Basophil# 0.04 X10^3/uL; Basophil% 0.8 % (0-1); Eosinophil# 0.23 X10^3/uL; Eosinophils% 4.6 % (0-5); Hematocrit 35.1 % (40-54); Hemoglobin 11.3 g/dL (13.0-16.5); Lymphocyte # 1.14 X10^3/ul (0.83-4.51); Lymphocyte % 22.8 % (19-41); Mean Corp Hgb Conc 32.2 g/dL (32-36); Mean Corpuscular Hgb 28.8 pg (27.0-32.0); Mean Corpuscular Volume 89.3 fL (80-94); Monocyte# 0.56 X10^3/uL; Monocyte% 11.2 % (0-10); NRBC Flagged by Analyzer 0 % (0-5); Neutrophil # 2.99 X10^3/uL (2.7-7.7); Neutrophil % 59.8 % (47-70); Platelet Count 292 K/mm3 (150-450); RBC Distribution Width CV 16.2 % (11.6-14.6); RBC Distribution Width SD 53.1 fl (35.1-43.9); Red Blood Count 3.93 M/mm3 (4.6-6.2)
[2023-12-19] MEDS: Lidocaine/Epi/Tetracaine 50 ML 1 APPLIC TOPICAL (17:30)
[2023-12-19] MEDS: Lidocaine 1% /Epi 1:100 (20ml) 20 ML Vial 10 ML INFILT (17:30)
[2023-12-19 17:36] LABS: Anion Gap 12 (5-15); BUN 23 mg/dL (7-18); BUN/Creat Ratio 11.6 RATIO (10-20); Calcium,Total 9.6 mg/dL (8.5-10.1); Chloride 102 mmol/L (98-107); Creatinine, Serum 1.98 mg/dL (0.70-1.30); EST Glomerular Filtration Rate 34 mL/min (>60); Est Glom Filt Rate - Afr Amer 41 mL/min (>60); Estimated Creatinine Clearance 30.18 ml/min; Glucose 132 mg/dL (74-106); Potassium 4.1 mmol/L (3.5-5.1); Sodium Level 138 mmol/L (136-145)
[2023-12-19] MEDS: Lidocaine 1% /Epi 1:100 (20ml) 20 ML Vial INFILT (17:38)
[2023-12-19 18:18] VITALS: BP 140/95; PULSE 87; RESP 12; O2SAT 98
[2023-12-19 20:03] VITALS: BP 147/84; PULSE 82; RESP 18; TEMP 36.8; O2SAT 97
== END 2023-12-19 20:00 | disposition home or self-care (01) ==
PROVIDERS: Emergency Provider Emergency Medicine; PCP Internal Medicine; Visit Provider Emergency Medicine
DX: S01.01XA Laceration without foreign body of scalp, initial encounter (principal); E11.22 Type 2 diabetes mellitus with diabetic chronic kidney disease; Z79.4 Long term (current) use of insulin; N18.30 Chronic kidney disease, stage 3 unspecified; Z87.891 Personal history of nicotine dependence; I12.9 Hypertensive chronic kidney disease with stage 1 through stage 4 chronic kidney disease, or unspecified chronic kidney disease; I25.10 Atherosclerotic heart disease of native coronary artery without angina pectoris; Z79.01 Long term (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 of anticoagulants; E78.5 Hyperlipidemia, unspecified; Z95.5 Presence of coronary angioplasty implant and graft; Z90.49 Acquired absence of other specified parts of digestive tract; Z79.02 Long term (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 of antithrombotics/antiplatelets; Z79.82 Long term (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 of aspirin; W10.9XXA Fall (on) (from) unspecified stairs and steps, initial encounter; Y92.59 Other trade areas as the place of occurrence of the external cause; Z86.73 Personal history of transient ischemic attack (TIA), and cerebral infarction without residual deficits; N40.0 Benign prostatic hyperplasia without lower urinary tract symptoms; E03.9 Hypothyroidism, unspecified; K21.9 Gastro-esophageal reflux disease without esophagitis; D64.9 Anemia, unspecified
CPT/HCPCS: 12002; 70450; 73502; 80048; 85025; 99285

== ENCOUNTER → 2024-01-05 | Outpatient (CLI) | payer MEDICARE, SELFPAY ==
--- NOTE | 2024-01-05 14:45 | CT_ITS ---
STUDY: CT PELVIS WITHOUT CONTRAST REASON FOR EXAM: Male, 88 years old. PAIN IN LEFT HIP RADIATION DOSAGE (If Supplied By Facility): CTDIvol = ( 28.21 ) mGy, DLP = ( 924.60 ) mGycm TECHNIQUE: Transaxial imaging of the pelvis was performed without oral contrast, and without intravenous administration of contrast material. Individualized dose optimization techniques were used for this CT. COMPARISON: None. FINDINGS: Normal urinary bladder. Normal visualized small intestine. There are multiple colonic diverticula of the sigmoid colon consistent with chronic diverticulosis. There is no pelvic fluid. There is no pelvic mass lesion or lymphadenopathy. There are prostatic calcifications. Normal visualized pelvic arteries. Normal abdominal wall. Status post transpedicular fixation in the lower lumbar spine. Mild joint space narrowing of both hip joints consistent with mild arthrosis. CT/Pelvis without IV Contrast IMPRESSION: Mild bilateral hip arthrosis. Electronically Signed: Devante Dunlap MD at 19:20 EDT ,
== END | disposition home or self-care (01) ==
LOC: CT 14:42
PROVIDERS: PCP Internal Medicine
DX: M16.12 Unilateral primary osteoarthritis, left hip (principal); M25.552 Pain in left hip; M89.8X8 Other specified disorders of bone, other site
CPT/HCPCS: 72192

== ENCOUNTER → 2024-01-10 | Outpatient (CLI) | payer MEDICARE, SELFPAY ==
--- NOTE | 2024-01-10 13:20 | RAD_ITS ---
INDICATION: M54.17 EXAMINATION/TECHNIQUE: X-RAY - XR Spine Lumbar Comp W/ Bending Min 6 Views COMPARISON: Prior study dated: 02/12/2020 FINDINGS: VERTEBRAE: There is posterior fusion hardware in place from L2 to L5. Hardware is intact. No fracture. Grade 2 anterolisthesis of L5 on S1 appears progressed from the 2019 study. There is no evidence of instability on flexion or extension. Preservation of the normal lumbar lordosis. Facet arthropathy at the upper lumbar spine. Levoscoliosis. DISCS: Disc space narrowing at L1-L2. This is increased from prior with associated endplate osteophytes. INCLUDED ABDOMEN: Included bowel gas pattern is non-obstructive. RAD/L/S Spine Comp/w Bending Views IMPRESSION: No evidence of instability. Intact posterior fusion hardware L2-L5. Increased grade 2 anterolisthesis of L5 on S1 when compared to the 2019 study. Electronically Signed: Marc Mckeon MD at 16:43 EDT ,
== END | disposition home or self-care (01) ==
LOC: RAD 13:13
PROVIDERS: PCP Internal Medicine; Referring Provider Anesthesiology Pain Medicine; Visit Provider Anesthesiology Pain Medicine
DX: M54.17 Radiculopathy, lumbosacral region (principal)
CPT/HCPCS: 72114

== ENCOUNTER 2024-02-26 15:00 | Outpatient (RCR) | payer MEDICARE, SELFPAY ==
--- NOTE | 2024-01-19 14:59 | HP.PTEVAL_ITS ---
Patient's Visit Information Visit Information Visit Information: DARREN REDDY is a 88 year old M referred to Physical Therapy by Dr. Marie Maciel MD with a diagnosis of PD, Polyneuropathy, falls, vestibular. Date of Evaluation: 01/19/24 Physical Therapist: FELISA Zaragoza Visit Plan Frequency: 2x /Week Duration: 3 Months Plan: 2X/ week for 12 weeks for progressive walking, strengthening, balance activities, gait mechanics, car mechanics with HEP. Big issue at this point is the patients SOB on exertion. HEP: Seated heel and toe raises, LAQ Subjective Subjective: Pt reports that he is weak all over. He can not get in and out of the car very good and can not walk steps. He always uses the walker. He fell 3 weeks ago. [facility] and got out of the car and down he went. The neighbor nasim got him up and then he fell again and got 7 stiches in his head and 3 weeks before that he got 8 stitches in his head. When he stands up he gets a little dizzy. He now knows that he needs to get up slowly and stand there for a few minutes before he walks. His legs gave out and he had no control. He has some freezing episodes where his feet do not want to move. He is on PD meds. He has no dizziness any other time other than if he stands up too fast. He feels that his legs were wiped out after Rehab over at [facility] and thinks that is partially why he fell. He is not on oxygen at home but he is on a CPAP. He gets up every 2-3 hours to go to the bathroom. He is sleeping in a bed. He sometimes has trouble rolling over. He has steps going into his home and has to watch them. He has 2 railings but has to be careful. He still drives and lives with his . His bed and bathroom are all on the first floor. He was diagnosed 3 years ago with PD. He reports that he has feeling in his feet. He naps a lot. He is not doing too much exercises at home. He will get a shot from pain management on . Pain back pain: Pain Intensity (Out of 10): 3 Objective Objective: Gait: walks with a rolling walker with shorter strides and arms out in front and flexed trunk. Very SOB walking back to the treatment room and had to stop 3 times to catch his breath on the way back to the treatment room. Sit to stand: Able to get up on first attempt using B arms LE MMT: R hip flex 5.4 and L 3.9 R knee ext 14.9 and L 13.6 R knee flex 12.1 and L 10# Heel and toe raises standing at the walker: pt struggled with raising his toes (almost no ROM) but able to raise heels 1/2 normal ROM Pt is able to stand unsupported for 15 seconds with walker in close reach. pt very SOB today on exhertion and was very tired from just walking back to treatment room Balance/Special Test Scores Lower Extremity Functional Score: 15 Goals Goal 1:: I HEP Goal Time Frame: 8-12 Weeks Goal 2:: Be able to walk back to the treatment room with a rolling walker with SBA with more upright posture and not having to stop to catch his breath. Goal Time Frame: 8-12 Weeks Goal 3:: Be able to get out of a car with 50% more ease Goal Time Frame: 8-12 Weeks Goal 4:: Increase LE strength (at the time of the eval: LE MMT: R hip flex 5.4 and L 3.9 R knee ext 14.9 and L 13.6 R knee flex 12.1 and L 10#). Goal Time Frame: 8-12 Weeks Goal 5:: Be able to stand unsupported X 1 min with horizontal head turns Goal Time Frame: 8-12 Weeks Rehabilitation Potential Rehabilitation Potential: Good Anticipated Interventions Patient/Client Instruction: Educate patient on: Condition and Plan of Care For the Purpose of:: To decrease pain, To increase ROM, To improve nutrient delivery to tissue, To increase oxygenation perfusion, To improve muscle performance and motor function, To improve ability to perform ADL's, To improve performance and independence with ADL's, To improve ability of physical actions for home/community/work/leisure, To improve gait and locomotor functions, To improve health of tissue, To decrease soft tissue restriction, To increase flexibility/ROM, To improve endurance, To improve balance and To improve safety with gait Therapeutic Exercise to Include: Strength training, Endurance training, Balance training, Body mechanics, Postural training, Flexibilty training, Gait and locomotor training, Neuromotor development, Active ROM and Dynamic Lumbar Stabilization For the Purpose of:: To increase ROM, To improve muscle performance and motor function, To improve ability to perform ADL's, To increase tolerance to activity/condition/position, To improve performance and independence with ADL's, To decrease level of supervision to perform tasks, To improve ability of physical actions for home/community/work/leisure, To improve gait and locomotor functions, To improve health of tissue, To decrease soft tissue restriction, To increase flexibility/ROM, To improve endurance, To improve balance and To improve safety with gait Functional Training to Include: Gait training For the Purpose of:: To improve gait and locomotor functions and To improve safety with gait Text: Thank you for the opportunity to evaluate your patient. For Medicare and Medicare HMO plans, please review the plan of care and approve it. It will need to be FAXED BACK to us at [phone] for Medicare purposes. For Medicare only, by signing this I certify the plan of care. Please let me know if there are questions or concerns regarding this plan of care. Physician Signature: Date:
--- NOTE | 2024-02-26 15:22 | HP.PTREVAL_ITS ---
Re-Evaluation Intro: Dr. Marie Maciel MD, It has been my pleasure to treat DARREN REDDY over the last 11 visits for PD, Polyneuropathy, falls, vestibular. Please see the progress note below for an update on the physical therapy plan of care! Subjective Subjective: The therapy makes him worse. His breathing is getting worse due to his hiatal hernia and they can't do surgery for it. He will probably go home and take a pain pill. He sees the Dr in 1.5 weeks. Objective Objective/Function: MMT: R hip flex 9.5 and L 4.7 R knee ext 19 and L 19.7 R knee flex 18.5 and L 16.9. (strength has improved) Pt did not have to stop and catch his breath to get back to the treatment area and he had to do that on eval. Plan Plan Plan: Pt wants to hold his chart right now until after his back injection and until he talks to the Dr. At this point PT is making him worse. HEP: Seated heel and toe raises, LAQ Balance/Gait/Functional tests Balance/Special Test Scores Lower Extremity Functional Score: 21 Goals Goals Goal 1:: I HEP Goal Time Frame: 8-12 Weeks Goal 2:: Be able to walk back to the treatment room with a rolling walker with SBA with more upright posture and not having to stop to catch his breath. Goal Time Frame: 8-12 Weeks Goal Progress: Progressing Goal 3:: Be able to get out of a car with 50% more ease Goal Time Frame: 8-12 Weeks Goal Progress: Not Progressing Goal 4:: Increase LE strength (at the time of the eval: LE MMT: R hip flex 5.4 and L 3.9 R knee ext 14.9 and L 13.6 R knee flex 12.1 and L 10#). Goal Time Frame: 8-12 Weeks Goal 5:: Be able to stand unsupported X 1 min with horizontal head turns Goal Time Frame: 8-12 Weeks Goal Progress: Progressing Anticipated Interventions Anticipated Interventions Patient/Client Instruction: Educate patient on: Condition and Plan of Care For the Purpose of:: To decrease pain, To increase ROM, To improve nutrient delivery to tissue, To increase oxygenation perfusion, To improve muscle performance and motor function, To improve ability to perform ADL's, To improve performance and independence with ADL's, To improve ability of physical actions for home/community/work/leisure, To improve gait and locomotor functions, To improve health of tissue, To decrease soft tissue restriction, To increase flexibility/ROM, To improve endurance, To improve balance and To improve safety with gait Therapeutic Exercise to Include: Strength training, Endurance training, Balance training, Body mechanics, Postural training, Flexibilty training, Gait and locomotor training, Neuromotor development, Active ROM and Dynamic Lumbar Stabilization For the Purpose of:: To increase ROM, To improve muscle performance and motor function, To improve ability to perform ADL's, To increase tolerance to activity/condition/position, To improve performance and independence with ADL's, To decrease level of supervision to perform tasks, To improve ability of physical actions for home/community/work/leisure, To improve gait and locomotor functions, To improve health of tissue, To decrease soft tissue restriction, To increase flexibility/ROM, To improve endurance, To improve balance and To impr ove safety with gait Functional Training to Include: Gait training For the Purpose of:: To improve gait and locomotor functions and To improve safety with gait Re-Evaluation Ending Re-evaluation ending: Please do not hesitate to contact me at [phone] by phone or if you have questions or concerns regarding this new plan of care! Sincerely, FELISA Zaragoza
--- NOTE | 2024-06-04 09:55 | HP.PT.NRP ---
Patient Information Patient Information: DARREN REDDY was seen in my office for initial evaluation on 01/19/24. The following Plan of Care was established for this patient: POC Established Initial Frequency: 2x /Week Initial Duration: 3 Months Anticipated Interventions Patient/Client Instruction: Educate patient on: Condition and Plan of Care For the Purpose of:: To decrease pain, To increase ROM, To improve nutrient delivery to tissue, To increase oxygenation perfusion, To improve muscle performance and motor function, To improve ability to perform ADL's, To improve performance and independence with ADL's, To improve ability of physical actions for home/community/work/leisure, To improve gait and locomotor functions, To improve health of tissue, To decrease soft tissue restriction, To increase flexibility/ROM, To improve endurance, To improve balance and To improve safety with gait Therapeutic Exercise to Include: Strength training, Endurance training, Balance training, Body mechanics, Postural training, Flexibilty training, Gait and locomotor training, Neuromotor development, Active ROM and Dynamic Lumbar Stabilization For the Purpose of:: To increase ROM, To improve muscle performance and motor function, To improve ability to perform ADL's, To increase tolerance to activity/condition/position, To improve performance and independence with ADL's, To decrease level of supervision to perform tasks, To improve ability of physical actions for home/community/work/leisure, To improve gait and locomotor functions, To improve health of tissue, To decrease soft tissue restriction, To increase flexibility/ROM, To improve endurance, To improve balance and To improve safety with gait Functional Training to Include: Gait training For the Purpose of:: To improve gait and locomotor functions and To improve safety with gait Last Seen Last Seen: This patient was last seen in our office . Pertinent comments regarding their Physical therapy will appear below: At this point I will be discontinuing this patient from physical therapy. I would be happy to see this patient again in the future if found appropriate by the physician. Thank you! Maureen Retana, FELISA Balance/Gait/Functional tests Balance/Special Test Scores Lower Extremity Functional Score: 21
== END 2024-02-26 19:00 | disposition home or self-care (01) ==
LOC: PT 15:00
PROVIDERS: PCP Internal Medicine; Referring Provider Internal Medicine; Visit Provider Internal Medicine
DX: R29.818 Other symptoms and signs involving the nervous system (principal); G20.A1 Parkinson's disease without dyskinesia, without mention of fluctuations; G62.9 Polyneuropathy, unspecified
CPT/HCPCS: 97110; 97162; 97530

== ENCOUNTER → 2024-05-09 | Outpatient (CLI) | payer MEDICARE, SELFPAY ==
[2024-05-09 12:22] LABS: Absolute Lymphocyte Count 1.31 X10^3/uL (0.83-4.51); Absolute Neutrophil Count 3.7 X10^3/uL (2.0-7.7); Basophil# 0.06 X10^3/uL; Basophil% 0.9 % (0-1); Eosinophil# 0.57 X10^3/uL; Eosinophils% 8.9 % (0-5); Hematocrit 32.2 % (40-54); Hemoglobin 9.9 g/dL (13.0-16.5); Lymphocyte # 1.31 X10^3/ul (0.83-4.51); Lymphocyte % 20.4 % (19-41); Mean Corp Hgb Conc 30.7 g/dL (32-36); Mean Corpuscular Hgb 24.3 pg (27.0-32.0); Mean Corpuscular Volume 79.1 fL (80-94); Mean Platelet Vol. 8.9 fl (6.2-12.0); Monocyte# 0.74 X10^3/uL; Monocyte% 11.5 % (0-10); NRBC Flagged by Analyzer 0 % (0-5); Neutrophil # 3.69 X10^3/uL (2.7-7.7); Neutrophil % 57.5 % (47-70); Platelet Count 281 K/mm3 (150-450); RBC Distribution Width CV 19.1 % (11.6-14.6); RBC Distribution Width SD 54.7 fl (35.1-43.9); Red Blood Count 4.07 M/mm3 (4.6-6.2); White Blood Count 6.4 K/mm3 (4.4-11.0)
[2024-05-09 12:56] LABS: Hemoglobin A1c 6.6 % (3.8-5.6)
[2024-05-09 13:03] LABS: Vitamin B12 > 2000 pg/mL (211-911)
[2024-05-09 13:17] LABS: ALB/GLOB Ratio 1.2 RATIO (0.9-2.4); AST(SGOT) 6 U/L (15-37); Alanine Aminotransfer ALT/SGPT 10 U/L (16-61); Albumin, Serum 3.8 g/dL (3.2-5.0); Alkaline Phosphatase 46 U/L (45-117); Anion Gap 11 (5-15); BUN 20 mg/dL (7-18); BUN/Creat Ratio 11.9 RATIO (10-20); Calcium,Total 9.7 mg/dL (8.5-10.1); Chloride 105 mmol/L (98-107); Cholesterol 143 mg/dL (200); Creatinine, Serum 1.68 mg/dL (0.70-1.30); EST Glomerular Filtration Rate 41 mL/min (>60); Est Glom Filt Rate - Afr Amer 50 mL/min (>60); Free T3 2.5 pg/mL (2.18-3.98); Globulin 3.2 g/dL (2.2-4.2); Glucose 94 mg/dL (74-106); High Density Lipoprotein 46 mg/dL; Magnesium 1.8 mg/dL (1.6-2.6); PSA,Total - Annual Screen 1.04 ng/mL (0.00-4.00); Potassium 3.4 mmol/L (3.5-5.1); Sodium Level 141 mmol/L (136-145); T4 Free Direct 0.91 ng/dL (0.76-1.46); Triglycerides 144 mg/dL; Very Low Density Lipoprotein 29 mg/dL (5-40)
[2024-05-09 13:49] LABS: Iron 28 ug/dL (65-175); Iron Binding Capacity,Total 454 ug/dL (250-450); PERCENT IRON SATURATION 6.2 % (15.0-55.0)
== END | disposition home or self-care (01) ==
PROVIDERS: PCP Internal Medicine; Referring Provider Internal Medicine; Visit Provider Internal Medicine
DX: E78.5 Hyperlipidemia, unspecified (principal); E11.649 Type 2 diabetes mellitus with hypoglycemia without coma; Z79.4 Long term (current) use of insulin; E11.69 Type 2 diabetes mellitus with other specified complication; E11.22 Type 2 diabetes mellitus with diabetic chronic kidney disease; N18.30 Chronic kidney disease, stage 3 unspecified; E53.8 Deficiency of other specified B group vitamins; E66.9 Obesity, unspecified; E03.9 Hypothyroidism, unspecified; I12.9 Hypertensive chronic kidney disease with stage 1 through stage 4 chronic kidney disease, or unspecified chronic kidney disease; Z13.220 Encounter for screening for lipoid disorders; D50.9 Iron deficiency anemia, unspecified; Z12.5 Encounter for screening for malignant neoplasm of prostate
CPT/HCPCS: 36415; 80053; 80061; 82607; 83036; 83540; 83550; 83735; 84153; 84439; 84443; 84481; 85025; G0103

== ENCOUNTER 2024-06-14 21:57 | Observation (INO) | payer MEDICARE, SELFPAY ==
[2024-06-14 22:03] VITALS: BP 109/68; PULSE 71; RESP 24; TEMP 36.8; O2SAT 96; BMI 39.5
--- NOTE | 2024-06-14 23:17 | EKG12_ITS ---
Test Reason : LOSS OF CON. Blood Pressure : */* mmHG Vent. Rate : 77 BPM Atrial Rate : 77 BPM P-R Int : 150 ms QRS Dur : 138 ms QT Int : 428 ms P-R-T Axes : 73 -62 47 degrees QTcB Int : 484 ms Sinus rhythm with Premature atrial complexes Right bundle branch block Left anterior fascicular block Bifascicular block Minimal voltage criteria for LVH, may be normal variant ( R in aVL ) Abnormal ECG When compared with ECG of 16-Jul-2023 15:15, No significant change was found Confirmed by GÉNESIS GUTIÉRREZ, JENNIFER ([id number]), publications editor MATTHIEU SEGUNDO ([id number]) on 06/18/2024 9:14:47 AM Referred By: SARA Confirmed By: JENNIFER CAPPS MD
--- NOTE | 2024-06-14 23:17 | CT_ITS ---
EXAM: CT HEAD WITHOUT INTRAVENOUS CONTRAST CLINICAL INDICATION: syncope vs TIA TECHNIQUE: Multiple axial images were obtained of the head without intravenous contrast. CTDIvol = ( 44.99 ) mGy, DLP = ( 812.98 ) mGycm This CT exam was performed using one or more of the following dose reduction techniques: automated exposure control, adjustment of the mA and/or kV according to patient size, and/or use of iterative reconstruction technique. COMPARISON: No relevant prior studies available. FINDINGS: BRAIN AND EXTRA-AXIAL SPACES: Mild diffuse parenchymal atrophy and chronic ischemic small vessel white matter disease. No intra- or extra-axial hemorrhage. No evidence of acute infarct. No intracranial mass or mass effect. There is preservation of the loyola/white matter interface. Posterior fossa structures are unremarkable. Ventricles are appropriate for age. No hydrocephalus. Basal cisterns are patent. BONES/JOINTS: Unremarkable. No discrete lytic or blastic abnormalities. SINUSES: Unremarkable as visualized. Clear. MASTOID AIR CELLS: Unremarkable. Clear. ORBITS: Visualized globes, extraocular muscles, optic nerves and retrobulbar fat appear unremarkable. CT/Brain/Head without Contrast IMPRESSION: No acute intracranial pathology. AIDOC was utilized to assist in identifying pertinent positive findings. Electronically Signed: Helio Styles MD at 0:52 EST ,
[2024-06-14 23:55] LABS: Anion Gap 14 (5-15); BUN 26 mg/dL (7-18); BUN/Creat Ratio 11.6 RATIO (10-20); Calcium,Total 9.5 mg/dL (8.5-10.1); Chloride 102 mmol/L (98-107); Creatinine, Serum 2.25 mg/dL (0.70-1.30); EST Glomerular Filtration Rate 30 mL/min (>60); Est Glom Filt Rate - Afr Amer 36 mL/min (>60); Estimated Creatinine Clearance 25.79 ml/min; Glucose 120 mg/dL (74-106); Magnesium 1.8 mg/dL (1.6-2.6); Potassium 3.9 mmol/L (3.5-5.1); Sodium Level 136 mmol/L (136-145)
[2024-06-15] VITALS (8 sets, daily range): BP systolic 96–136; BP diastolic 49–87; PULSE 75–85; RESP 16–22; TEMP 36.3–36.6; O2SAT 94–100; BMI 47.7
[2024-06-15 00:10] LABS: Absolute Lymphocyte Count 0.77 X10^3/uL (0.83-4.51); Absolute Neutrophil Count 9.7 X10^3/uL (2.0-7.7); Basophil# 0.04 X10^3/uL; Basophil% 0.4 % (0-1); Eosinophil# 0.05 X10^3/uL; Eosinophils% 0.4 % (0-5); Hematocrit 43.5 % (40-54); Hemoglobin 13.3 g/dL (13.0-16.5); Lymphocyte # 0.77 X10^3/ul (0.83-4.51); Lymphocyte % 6.9 % (19-41); Mean Corp Hgb Conc 30.6 g/dL (32-36); Mean Corpuscular Hgb 25.9 pg (27.0-32.0); Mean Corpuscular Volume 84.6 fL (80-94); Mean Platelet Vol. 9.6 fl (6.2-12.0); Monocyte# 0.56 X10^3/uL; NRBC Flagged by Analyzer 0 % (0-5); Neutrophil # 9.71 X10^3/uL (2.7-7.7); Neutrophil % 86.4 % (47-70); POSITIVE MORPHOLOGY YES; Platelet Count 212 K/mm3 (150-450); RBC Distribution Width CV 23.6 % (11.6-14.6); RBC Distribution Width SD 70.2 fl (35.1-43.9); Red Blood Count 5.14 M/mm3 (4.6-6.2); White Blood Count 11.2 K/mm3 (4.4-11.0)
[2024-06-15 00:16] LABS: International Normalized Ratio 1.2
[2024-06-15 00:17] LABS: Partial Thromboplast Time 26.1 Seconds (24.1-36.2)
[2024-06-15 00:17] LABS: Differential Indicated SCAN CRITERIA MET
[2024-06-15] MEDS: 0.9% Normal Saline (500mL Bag) 500 ML 999 ML IV (00:39)
--- NOTE | 2024-06-15 01:53 | PCM.HP.STD ---
[facility] - General General Date of Admission: 06/15/24 Date of Service: 06/15/24 Chief Complaint: Syncope and Slurred Speech x 2. HPI Narrative DARREN REDDY, is a 88 M with a past medical history of essential hypertension; on amlodipine and furosemide, hyperlipidemia; on pravastatin, hypothyroidism; on levothyroxine, remote history of tobacco abuse, obesity; with BMI of 39.6 this admission with DANYELL, DM-2; of unknown control on metformin and NPH 34 units SQ daily and 24 units SQ q. 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, CAD; s/p stent (2015) on ISMO and Ranexa, history of cardiac arrhythmia, history of RBBB with LAFB, history of cardiomyopathy, history of orthostatic hypotension; on fludrocortisone, CKD; stage IIIa, JORY, Parkinson's disease; on Sinemet, history of CVA; with mild cognitive impairment already on Plavix, depression; on escitalopram and trazodone, history of muscle spasms; on as needed cyclobenzaprine, history of B12 deficiency; on oral supplementation, history of vocal cord dysfunction, history of Right CTS, history of appendectomy, history of lymph node biopsy, BPH; on finasteride, GERD; on pantoprazole, history of cervical radiculopathy, and OA; with history of back surgery and chronic low back pain causing impaired gait and mobility on as needed oxycodone who presents to [facility] ER with his family noting syncope and slurred speech. His family informed the ER physician that they were sitting down to dinner when the patient had a sudden loss of consciousness with an episode of slurred speech that lasted for approximately 1 minute and then resolved. They gave him orange juice and he seemed to improve so they tried to take him to bed so he could rest when he had a second similar event so they decided to bring him in for further evaluation and treatment. His blood glucose was noted to be in the normal range with no other complaints related to headache or other focal neurologic deficits. The patient stated that he typically has these type of episodes and a reaction to hypoglycemia but his blood glucose was over 100 mg/dL in both instances today. In the ER he was noted to have a CT scan of the head that was negative for acute pathologic changes that would explain his symptoms with the ER physician suspecting a combination of possible Syncope and TIA in the setting of Recurrent Hypoglycemia and the patient was then admitted to the PCU under observation status for ongoing care for status expected to be less than 2 midnights. [facility] Medical History (Updated 06/15/24 @ 07:[address] Neri Arana, ) Cervical osteoarthritis Bilateral arm pain Cervical radiculopathy Visit for suture removal Acute otitis media, left 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 Obesity History of CVA (cerebrovascular accident) Stroke/cerebrovascular accident Body mass index (BMI) 40.0-44.9, adult GERD (gastroesophageal reflux disease) BPH (benign prostatic hyperplasia) Hypothyroidism Osteoarthritis CKD (chronic kidney disease) stage 3, GFR 30-59 ml/min Debility Iron deficiency anemia Syncope and collapse Right bundle branch block (RBBB) with left anterior fascicular block Premature ventricular contractions Essential (primary) hypertension Vocal cord dysfunction DANYELL (obstructive sleep apnea) Hiatal hernia BMI 40.0-44.9, adult Dyspnea Cough Shortness of breath Obesity Upper respiratory infection Right flank pain Anemia Atherosclerotic heart disease of false pass coronary artery without angina pectoris 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 Palpitations Nonrheumatic tricuspid (valve) insufficiency HLD (hyperlipidemia) Chest pain Appendicitis Benign prostatic hypertrophy GERD (gastroesophageal reflux disease) Nephrolithiasis Diabetes mellitus type 2 in obese Home Medications ?Medication ?Instructions ?Recorded ?Last Taken ?Type cholecalciferol (vitamin D3) 125 5,000 unit PO DAILY vitamin 06/29/15 02/10/20 History mcg (5,000 unit) capsule finasteride 5 mg tablet 5 mg PO DAILY prostate 06/29/15 10/29/21 History aspirin 81 mg tablet,delayed 81 mg PO DAILY heart health 07/24/15 10/29/21 History release acetaminophen 500 mg tablet 1,000 mg (2 x 500 mg) PO Q6H PRN 02/19/20 Unknown Rx PRN Pain Score 1-3/10 Handi cap Placard #1 ea 10/14/20 Unknown Rx vitamins A,C,M-kvov-yvkemq 2,148 1 tab PO BID 12/17/20 Unknown History mcg-113 mg-45 mg-17.4 mg tablet (PreserVision AREDS) pen needle, diabetic 32 gauge x #100 ea 12/25/20 Unknown Rx 1/4 insulin human U-100 NPH-regulr 24 unit subcut QHS diabetes 03/14/23 Unknown History 70-30 mix 100 unit/mL subcutaneous susp clopidogrel 75 mg tablet 75 mg PO DAILY TIA #90 tabs 09/11/23 Unknown Rx amlodipine 5 mg tablet 5 mg PO DAILY BP #90 tabs 09/19/23 Unknown Rx pravastatin 20 mg tablet 20 mg PO DAILY cholesterol #90 tabs 10/03/23 Unknown Rx Compression stockings (10-20) #2 ea 01/04/24 Unknown Rx Left AFO #1 ea 01/04/24 Unknown Rx levothyroxine 50 mcg tablet 50 mcg PO DAILY thyroid #90 tabs 02/01/24 Unknown Rx escitalopram oxalate 10 mg tablet 10 mg PO DAILY #90 tabs 03/05/24 Unknown Rx furosemide 40 mg tablet 40 mg PO DAILY #90 TABLETS 03/05/24 Unknown Rx pantoprazole 40 mg tablet,delayed See Rx Instructions .Route 03/05/24 Unknown Rx release .COMPLEX #90 tabs ranolazine 500 mg tablet,extended 500 mg PO BID #180 tabs 03/12/24 Unknown Rx release,12 hr metformin 500 mg tablet 500 mg PO BIDCM diabetes #180 tabs 03/19/24 Unknown Rx carbidopa 25 mg-levodopa 100 mg See Rx Instructions .Route 03/28/24 Unknown Rx tablet (Sinemet) .COMPLEX #150 tabs fludrocortisone 0.1 mg tablet See Rx Instructions PO .COMPLEX 03/28/24 Unknown Rx #28 tabs isosorbide mononitrate 30 mg 30 mg PO DAILY #90 TABLETS 04/01/24 Unknown Rx tablet,extended release 24 hr cyclobenzaprine 5 mg tablet 5 mg PO BID PRN muscle spasm #20 05/20/24 Unknown Rx tabs ascorbic acid (vitamin C) 1,000 mg 1 g PO DAILY 06/15/24 Unknown History tablet (C-1000) cyanocobalamin (vitamin B-12) 1,000 mcg PO DAILY 06/15/24 Unknown History 1,000 mcg tablet (Vitamin B-12) ferrous sulfate 325 mg (65 mg 325 mg PO DAILY 06/15/24 Unknown History iron) tablet (Feosol) hydrocodone-acetaminophen 5-325mg 0.5 - 1 tab PO BID PRN PRN pain 06/15/24 Unknown History 5mg-325mg insulin human U-100 NPH-regulr 34 unit subcut DAILY 06/15/24 Unknown History 70-30 mix 100 unit/mL subcutaneous susp (Humulin 70/30 U-100 Insulin) trazodone 50 mg tablet 25 mg PO QHS PRN PRN insomnia 06/15/24 Unknown History zinc acetate 50 mg (zinc) capsule 50 mg PO DAILY 06/15/24 Unknown History Allergy/AdvReac Type Severity Reaction Status Date / Time lisinopril Allergy Mild Cough Verified 06/14/24 22:08 naproxen (From Aleve) Allergy HIVES Verified 06/14/24 22:08 losartan AdvReac Intermediate Jitters Verified 06/14/24 22:08 metoprolol AdvReac Intermediate Jitters Verified 06/14/24 22:08 pioglitazone HCl (From Actos) AdvReac Mild Upset Verified 06/14/24 22:08 Stomach Family History Mother CAD (coronary artery disease) CVA (cerebral vascular accident) Brother CAD (coronary artery disease) Myocardial infarction Diabetes Heart disease Daughter Asthma Father Cancer bone cancer Sister Breast cancer Asthma Diabetes Heart disease Sister Cardiomyopathy Surgical History History of right and left heart catheterization (07/02/18) History of coronary artery stent placement (07/01/15) History of left heart catheterization (11/01/21) History of lymph node biopsy History of appendectomy History of back surgery Social History household members: spouse housing: house Smoking Status: Former smoker pack-years: 2 how long ago did patient quit smokin+ years ago alcohol intake: former substance use type: does not use caffeine: Yes Type: coffee Number of servings: 2 what type of physical activity do you participate in: none seatbelt use: always do you feel safe at home: Yes ROS ROS Narrative Review of Systems: Constitutional: Patient denies fever or chills. Eyes: Patient denies changes in vision or discharge from eyes. ENT: Patient denies runny nose, sore throat or ear pain. Resp: Patient denies shortness of breath or cough. CV: Patient denies chest pain, palpitations or heart racing. GI: Patient denies abdominal pain, nausea, vomiting, diarrhea or constipation. : Patient denies dysuria or hematuria. MSK: Patient admits to generalized weakness but he denies arthralgias. Skin: Patient denies rash, abscess or jaundice. Psych: Patient denies symptoms of uncontrolled depression or anxiety. Neuro: Patient admits to syncope and slurred speech lasting ~1 minute for each episode as per HPI. Allergy: Patient denies lip swelling, tongue swelling or urticaria. Hematology: Patient denies easy bleeding or easy bruisability. Endocrinology: Patient denies polyuria, polydipsia or polyphagia. 14 point review of systems otherwise negative other than positives noted above in HPI. Vital Signs Vital Signs Vital Signs: 06/14/24 22:03 06/14/24 22:08 06/15/24 00:00 Temperature 98.2 F Temperature Source Oral Pulse Rate 71 76 Respiratory Rate 24 H 22 H Respiratory Effort Normal Non-Labored Respiratory Pattern Normal Blood Pressure 109/68 96/83 H Blood Pressure Mean 81 87 Pulse Ox 96 97 Oxygen Delivery Method Room Air Room Air Weight Weight: 230 lb 9.656 oz Body Mass Index (BMI) 39.5 Results Lab / Micro Data 06/15/24 06:17 06/15/24 06:17 Labs: Laboratory Results - last 24 hr 06/14/24 22:40: WBC 11.2 H, RBC 5.14, Hgb 13.3, Hct 43.5, MCV 84.6, MCH 25.9 L, MCHC 30.6 L, RDW Std Deviation 70.2 H, RDW Coeff of Perla 23.6 H, Plt Count 212, MPV 9.6, Immature Gran % (Auto) 0.900, Neut % (Auto) 86.4 H, Lymph % (Auto) 6.9 L, Towns % (Auto) 5.0, Eos % (Auto) 0.4, Baso % (Auto) 0.4, Absolute Neuts (auto) 9.7 H, Absolute Lymphs (auto) 0.77 L, Nucleated RBC % 0, Sodium 136, Potassium 3.9, Chloride 102, Carbon Dioxide 21.0, Anion Gap 14, BUN 26 H, Creatinine 2.25 H, Estim Creat Clear Calc 25.79, Est GFR (MDRD) Af Amer 36 L, Est GFR (MDRD) Non-Af 30 L, BUN/Creatinine Ratio 11.6, Glucose 120 H, Calcium 9.5, Magnesium 1.8 06/14/24 23:49: PT 15.0 H, INR 1.2, APTT 26.1 Imaging Radiology Impression Brain CT 06/14/24 23:17 IMPRESSION: No acute intracranial pathology. AIDOC was utilized to assist in identifying pertinent positive findings. Electronically Signed: Helio Styles MD at 0:52 EST , Assessment & Plan Assessment/Plan (1) Syncope: QUALIFIERS: Syncope type: unspecified Qualified Code(s): R55 - Syncope and collapse (2) TIA (transient ischemic attack): (3) Hypoglycemia: (4) History of CVA (cerebrovascular accident): (5) Mild cognitive impairment: (6) Orthostatic hypotension: (7) History of coronary artery stent placement: (8) Right bundle branch block (RBBB) with left anterior fascicular block: (9) Cardiomyopathy: QUALIFIERS: Cardiomyopathy type: unspecified Qualified Code(s): I42.9 - Cardiomyopathy, unspecified (10) B12 nutritional deficiency: (11) Parkinson's disease: QUALIFIERS: Dyskinesia presence: unspecified whether dyskinesia Fluctuating manifestations: unspecified whether manifestations fluctuate Qualified Code(s): G20.A1 - Parkinson's disease without dyskinesia, without mention of fluctuations (12) Diabetes mellitus: QUALIFIERS: Diabetes mellitus complication detail: without coma Diabetes mellitus complication status: with hypoglycemia Diabetes mellitus senior living insulin use: with senior living use Diabetes mellitus type: type 2 Qualified Code(s): E11.649 - Type 2 diabetes mellitus with hypoglycemia without coma; 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 Syncope and possible TIA with transient LOC and slurred speech x 2 episodes this evening in the setting of recurrent hypoglycemia - Admit to PCU under observation status. Serialize troponin. Check MRI of the brain to evaluate for possible CVA. Check echocardiogram to evaluate LVEF. Check carotid Doppler to evaluate for possible stenosis. Continue Plavix and statin plus add aspirin. Check lipid profile, TSH, B12, folate, UDS and alcohol level to evaluate for possible reversible causes of confusion. Finally, we will cut insulin doses by ~60% hopefully prevent future episodes of hypoglycemia with patient apparently becoming severely brittle diabetic with intolerance to even low-normal blood glucose. 2. Orthostatic hypotension; on fludrocortisone complicating #1 - Resume fludrocortisone as previous. If problem persist in spite of negative workup he may require additional treatment with midodrine. 3. History of CVA; with mild cognitive impairment already on Plavix complicating #1 & #2 - Noted. 4. CAD; s/p stent (2016) on ISMO and Ranexa with subsequent cardiomyopathy and known history of cardiac arrhythmia with RBBB with LAFB compounding #1 & #2 - Place on continuous cardiac monitoring. Continue Ranexa but hold ISMO until hypotension resolves. 5. Parkinson's disease; on Sinemet adding to the medical complexity of #1 - #4 - Maintain Sinemet as before. 6. History of B12 deficiency; on oral supplementation - Continue oral supplement and check B12 and folate levels this admission. 7. OA; with history of back surgery and chronic low back pain causing impaired gait and mobility on as needed oxycodone - Hold oxycodone until workup is completed in case this agent is contributing to #1 8. Obesity; with BMI of 39.6 this admission with DANYELL - Weight loss will be recommended. This complicates his case and may hamper recovery. 9. BPH; on finasteride - Hold this agent as it is associated with syncope may be contributing to #1 10. Essential hypertension; on amlodipine and furosemide - Hold scheduled antihypertensives to allow for permissive hypertension in case of CVA. 11. Hyperlipidemia; on pravastatin - Resume statin and check lipid profile. 12. Hypothyroidism; on levothyroxine - Continue levothyroxine and check TSH. 13. Remote history of tobacco abuse - Noted. 14. DM-2; of unknown control on metformin and NPH 34 units SQ daily and 24 units SQ q. PM plus diabetic neuropathy with history of Left foot drop - ADA diet. Cut home insulin dosing by ~50% to prevent hypoglycemia. FSBS q. AC/HS plus lowest-intensity SSI. Check HgbA1c to objectively evaluate quality of diabetic control. 15. History of lipohypertrophy due to insulin injections - Noted. 16. CKD; stage IIIa - Stable. Continue gentle volume resuscitation and check renal indices daily to follow trend with baseline creatinine of ~1.6-2 mg/dL. 17. JORY - Stable with hemoglobin of 13.3 g/dL this admission. 18. Depression; on escitalopram and trazodone - Maintain current regimen. 19. History of muscle spasms; on as needed cyclobenzaprine - Stable. 20. History of vocal cord dysfunction - Noted. 21. History of Right CTS - Noted. 22. History of appendectomy - Noted. 23. History of lymph node biopsy - Noted. 24. GERD; on pantoprazole - Resume PPI. 25. History of cervical radiculopathy - Stable. 26. DVT prophylaxis - Heparin 5,000U sq TID plus SCD's. Total time: Approximately (but not less than) 70 minutes. Charges/Coding Visit Charges OBSV E&M: 24322 Observ/hosp same date L2
--- NOTE | 2024-06-15 02:04 | EDS_ITS ---
HPI History of Present Illness Chief Complaint: General Illness Informant: patient and family Narrative Narrative: Patient is a 88-year-old male with past medical history of Parkinson's disease diabetes hypertension hyperlipidemia. The patient's son states that they were sitting in the kitchen at the table when he appeared to slump over. He states that he grabbed him to help prevent him from falling and noticed that he was not responding to voice for a few seconds and then when he did he was slurring his speech and did not seem to understand what was going on. The patient's son states he thought his sugar might be low and grab some orange juice and gave him a few sips and then he shortly returned to normal. The patient states he does not remember this event. Roughly 20 minutes later he was getting ready for bed where he had a similar event where he became weak and was slurring his speech and with this happening twice he was brought in for evaluation [facility] Medical History (Updated 06/15/24 @ 06:[address] 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 Obesity History of CVA (cerebrovascular accident) Stroke/cerebrovascular accident Body mass index (BMI) 40.0-44.9, adult GERD (gastroesophageal reflux disease) BPH (benign prostatic hyperplasia) Hypothyroidism Osteoarthritis CKD (chronic kidney disease) stage 3, GFR 30-59 ml/min Debility Iron deficiency anemia Syncope and collapse Right bundle branch block (RBBB) with left anterior fascicular block Premature ventricular contractions Essential (primary) hypertension Vocal cord dysfunction DANYELL (obstructive sleep apnea) Hiatal hernia BMI 40.0-44.9, adult Dyspnea Cough Shortness of breath Obesity Upper respiratory infection Right flank pain Anemia Atherosclerotic heart disease of [place] coronary artery without angina pectoris 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 Palpitations Nonrheumatic tricuspid (valve) insufficiency HLD (hyperlipidemia) Chest pain Appendicitis Benign prostatic hypertrophy GERD (gastroesophageal reflux disease) Nephrolithiasis Diabetes mellitus type 2 in obese Home Medications ?Medication ?Instructions ?Recorded ?Last Taken ?Type cholecalciferol (vitamin D3) 125 5,000 unit PO DAILY vitamin 06/29/15 02/10/20 History mcg (5,000 unit) capsule finasteride 5 mg tablet 5 mg PO DAILY prostate 06/29/15 10/29/21 History aspirin 81 mg tablet,delayed 81 mg PO DAILY heart health 07/24/15 10/29/21 History release acetaminophen 500 mg tablet 1,000 mg (2 x 500 mg) PO Q6H PRN 02/19/20 Unknown Rx PRN Pain Score 1-3/10 Elizabeth Figueroa #1 ea 10/14/20 Unknown Rx vitamins A,C,I-bssy-lzihlm 2,148 1 tab PO BID 12/17/20 Unknown History mcg-113 mg-45 mg-17.4 mg tablet (PreserVision AREDS) pen needle, diabetic 32 gauge x #100 ea 12/25/20 Unknown Rx 1/4 insulin human U-100 NPH-regulr 24 unit subcut QHS diabetes 03/14/23 Unknown History 70-30 mix 100 unit/mL subcutaneous susp clopidogrel 75 mg tablet 75 mg PO DAILY TIA #90 tabs 09/11/23 Unknown Rx amlodipine 5 mg tablet 5 mg PO DAILY BP #90 tabs 09/19/23 Unknown Rx pravastatin 20 mg tablet 20 mg PO DAILY cholesterol #90 tabs 10/03/23 Unknown Rx Compression stockings (10-20) #2 ea 01/04/24 Unknown Rx Left AFO #1 ea 01/04/24 Unknown Rx levothyroxine 50 mcg tablet 50 mcg PO DAILY thyroid #90 tabs 02/01/24 Unknown Rx escitalopram oxalate 10 mg tablet 10 mg PO DAILY #90 tabs 03/05/24 Unknown Rx furosemide 40 mg tablet 40 mg PO DAILY #90 TABLETS 03/05/24 Unknown Rx pantoprazole 40 mg tablet,delayed See Rx Instructions .Route 03/05/24 Unknown Rx release .COMPLEX #90 tabs ranolazine 500 mg tablet,extended 500 mg PO BID #180 tabs 03/12/24 Unknown Rx release,12 hr metformin 500 mg tablet 500 mg PO BIDCM diabetes #180 tabs 03/19/24 Unknown Rx carbidopa 25 mg-levodopa 100 mg See Rx Instructions .Route 03/28/24 Unknown Rx tablet (Sinemet) .COMPLEX #150 tabs fludrocortisone 0.1 mg tablet See Rx Instructions PO .COMPLEX 03/28/24 Unknown Rx #28 tabs isosorbide mononitrate 30 mg 30 mg PO DAILY #90 TABLETS 04/01/24 Unknown Rx tablet,extended release 24 hr cyclobenzaprine 5 mg tablet 5 mg PO BID PRN muscle spasm #20 05/20/24 Unknown Rx tabs ascorbic acid (vitamin C) 1,000 mg 1 g PO DAILY 06/15/24 Unknown History tablet (C-1000) cyanocobalamin (vitamin B-12) 1,000 mcg PO DAILY 06/15/24 Unknown History 1,000 mcg tablet (Vitamin B-12) ferrous sulfate 325 mg (65 mg 325 mg PO DAILY 06/15/24 Unknown History iron) tablet (Feosol) hydrocodone-acetaminophen 5-325mg 0.5 - 1 tab PO BID PRN PRN pain 06/15/24 Unknown History 5mg-325mg insulin human U-100 NPH-regulr 34 unit subcut DAILY 06/15/24 Unknown History 70-30 mix 100 unit/mL subcutaneous susp (Humulin 70/30 U-100 Insulin) trazodone 50 mg tablet 25 mg PO QHS PRN PRN insomnia 06/15/24 Unknown History zinc acetate 50 mg (zinc) capsule 50 mg PO DAILY 06/15/24 Unknown History Allergy/AdvReac Type Severity Reaction Status Date / Time lisinopril Allergy Mild Cough Verified 06/14/24 22:08 naproxen (From Aleve) Allergy HIVES Verified 06/14/24 22:08 losartan AdvReac Intermediate Jitters Verified 06/14/24 22:08 metoprolol AdvReac Intermediate Jitters Verified 06/14/24 22:08 pioglitazone HCl (From Actos) AdvReac Mild Upset Verified 06/14/24 22:08 Stomach Family History Mother CAD (coronary artery disease) CVA (cerebral vascular accident) Brother CAD (coronary artery disease) Myocardial infarction Diabetes Heart disease Daughter Asthma Father Cancer bone cancer Sister Breast cancer Asthma Diabetes Heart disease Sister Cardiomyopathy Surgical History History of right and left heart catheterization (07/02/18) History of coronary artery stent placement (07/01/15) History of left heart catheterization (11/01/21) History of lymph node biopsy History of appendectomy History of back surgery Social History household members: spouse housing: house Smoking Status: Former smoker pack-years: 2 how long ago did patient quit smokin+ years ago alcohol intake: former substance use type: does not use caffeine: Yes Type: coffee Number of servings: 2 what type of physical activity do you participate in: none seatbelt use: always do you feel safe at home: Yes ROS ROS ED Constitutional Constitutional ED: Denies chills or fever(s) Eyes Eyes: Denies change in vision ENT ENT ED: Denies sore throat Cardiovascular Cardiovascular: Denies chest pain, palpitations or racing heartbeat Respiratory/Chest Respiratory/Chest: Denies cough or dyspnea Gastrointestinal Gastrointestinal: Denies abdominal pain, diarrhea, nausea or vomiting Genitourinary Genitourinary ED: Denies dysuria Musculoskeletal Musculoskeletal: Denies myalgias Integumentary Denies rash Neurologic Neurologic: Denies headache(s) Hematologic/Lymphatic Hematologic/Lymphatic: Denies easy bleeding or easy bruising EXAM Physical Exam Const Vital Signs: 06/14/24 22:03 06/14/24 22:08 06/15/24 00:00 Temperature 98.2 F Temperature Source Oral Pulse Rate 71 76 Respiratory Rate 24 H 22 H Respiratory Effort Normal Non-Labored Respiratory Pattern Normal Blood Pressure 109/68 96/83 H Blood Pressure Mean 81 87 Pulse Ox 96 97 Oxygen Delivery Method Room Air Room Air 06/15/24 02:00 06/15/24 02:00 Temperature 97.6 F L Temperature Source Pulse Rate 85 85 Respiratory Rate 17 17 Respiratory Effort Respiratory Pattern Blood Pressure 121/87 H 121/87 H Blood Pressure Mean 98 98 Pulse Ox 94 94 Oxygen Delivery Method Positive well nourished, well developed and obese General Appearance ED: well developed; Negative for pallor Nutritional Appearance: obese HEENT Reports moist mucous membranes HEENT Narrative: Normocephalic atraumatic No tongue or cheek biting to suggest seizure activity No airway edema or compromise No secondary findings in the posterior pharynx to suggest infection Eyes PERRL and EOMs intact bilaterally Neck supple Neck Narrative: No nuchal rigidity or meningeal signs Resp normal respiratory effort and clear to auscultation bilaterally Cardio regular rate and regular rhythm Rate: other Other Details: Heart is regular rate and rhythm Radial and carotid pulses are equal and symmetric GI normal to inspection, nondistended, normoactive bowel sounds, non-tender, non- distended and no masses Auscultation: normoactive bowel sounds Palpation: soft Extremity normal to inspection Neuro oriented x3, CN's II-XII intact bilaterally and no sensory deficits noted Neuro Narrative: GCS of 15 Cranial nerves II through XII are grossly intact there are no focal neurologic deficits No pronator drift no dysmetria no truncal ataxia NIH stroke scale score of 0 Sensorium / Orientation: alert Motor Exam: strength 5/5 throughout Psych mental status grossly normal Skin no rashes or lesions noted General Skin Exam: Negative for jaundice or pallor MDM MDM MDM Narrative Medical decision making narrative: Patient arrived to the ER with stable vitals and had a normal neurologic exam. His history is concerning for TIA versus syncope. Secondary to this a basic workup was obtained. Labs reveal that his underlying chronic kidney disease is slightly worse with his creatinine increasing from approximately 1.7-2.25. However there are no clinically significant electrolyte abnormalities such as hypokalemia or hypomagnesemia. The patient's head CT revealed no acute bleed or mass. EKG showed no cardiac dysrhythmia. We attempted to perform a CTA but because of his acute on chronic kidney disease it was not advisable to inject with contrast. At this time he had no repeat bouts of altered mental status but with concern for syncope versus TIA and the fact its happened multiple times this evening I do feel the safest option would be admission for further workup. This plan of care was discussed with the hospitalist who agrees with continued monitoring and evaluation in order to delineate the cause of the patient's symptoms and therefore he will be admitted for further care History & Record Review Discussion w/independent historian: Patient and Family Lab Data Attestation: I reviewed the patient's lab results. Labs: Laboratory Results - last 24 hr 06/14/24 06/14/24 22:40 23:49 WBC 11.2 H RBC 5.14 Hgb 13.3 Hct 43.5 MCV 84.6 MCH 25.9 L MCHC 30.6 L RDW Std Deviation 70.2 H RDW Coeff of Perla 23.6 H Plt Count 212 MPV 9.6 Immature Gran % (Auto) 0.900 Neut % (Auto) 86.4 H Lymph % (Auto) 6.9 L Lassen % (Auto) 5.0 Eos % (Auto) 0.4 Baso % (Auto) 0.4 Absolute Neuts (auto) 9.7 H Absolute Lymphs (auto) 0.77 L Nucleated RBC % 0 Platelet Estimate ADEQUATE Hypochromasia RARE Anisocytosis 2+ PT 15.0 H INR 1.2 APTT 26.1 Sodium 136 Potassium 3.9 Chloride 102 Carbon Dioxide 21.0 Anion Gap 14 BUN 26 H Creatinine 2.25 H Estim Creat Clear Calc 25.79 Est GFR (MDRD) Af Amer 36 L Est GFR (MDRD) Non-Af 30 L BUN/Creatinine Ratio 11.6 Glucose 120 H Calcium 9.5 Magnesium 1.8 Radiography Diagnostic Testing: Clinical Impression(s) from Imaging Studies Brain CT 06/14/24 23:17 IMPRESSION: No acute intracranial pathology. AIDOC was utilized to assist in identifying pertinent positive findings. Electronically Signed: Helio Styles MD at 0:52 EST , Management Discussion w/another healthcare provider: Hospitalist Discharge Plan Dx/Rx/DC Orders Clinical Impression: [id number] kidney injury, TIA (transient ischemic attack), Obesity (BMI 30-39.9), Essential (primary) hypertension, Parkinson's disease Disposition Disposition: Acute Care Hospital [facility] Discharge Date/Time: 06/15/24 03:40
[2024-06-15 02:43] LABS: Anisocytosis 2+; Hypochromasia RARE; Platelet Estimate ADEQUATE (ADEQ)
--- NOTE | 2024-06-15 03:42 | MRI_ITS ---
EXAM: MR HEAD WITHOUT INTRAVENOUS CONTRAST CLINICAL INDICATION: Syncope and TIA with slurred speech x 2. TECHNIQUE: Multiplanar and multisequence MR images of the brain were obtained without intravenous contrast. COMPARISON: CT head without contrast 06/15/2024 and 2023. FINDINGS: BRAIN AND EXTRA-AXIAL SPACES: Unremarkable. No intra- or extra-axial hemorrhage. No intracranial mass or mass effect. Posterior fossa structures are unremarkable. Ventricles are appropriate for age. No hydrocephalus. Basal cisterns are patent. No diffusion restriction to suspect acute or subacute ischemic infarct. No remote cortical-based ischemic infarct. SELLA: Unremarkable. Normal sella turcica, pituitary gland, infundibular stalk, optic chiasm and hypothalamus. AUDITORY SYSTEM: Unremarkable. The internal auditory canals are patent. BONES/JOINTS: Unremarkable. No discrete lytic or blastic abnormalities. SINUSES: Unremarkable as visualized. Clear. MASTOID AIR CELLS: Unremarkable as visualized. Clear. ORBITS: Unremarkable as visualized. Both globes, extraocular muscles, optic nerves and retrobulbar fat appear unremarkable. VASCULATURE: Unremarkable as visualized. Normal flow voids in the major intracranial circulation. MRI/Brain without Contrast IMPRESSION: Negative MRI brain without contrast. No suspicious acute or subacute ischemic infarct or remote ischemic infarct. Electronically Signed: Bebeto Gee MD at 12:43 EST ,
--- NOTE | 2024-06-15 03:42 | ECHOCS_ITS ---
Reason For Study: Near syncope Procedure This was a 2D Doppler, Color Flow transthoracic echocardiogram. The study was technically difficult. Exam performed portable in patient room. Left Ventricle Normal LV size. The left ventricular ejection fraction is 55 %. No regional wall motion abnormalities noted. Right Ventricle Normal RV size. Normal systolic function. Atria Normal left atrium. Normal right atrium. Mitral Valve Normal mitral valve. Tricuspid Valve The tricuspid valve is not well visualized. Aortic Valve Trisinus/trileaflet aortic valve. Mild focal aortic valve calcification. Pulmonic Valve The pulmonic valve is not well visualized. Great Vessels Normal aortic root. The pulmonary artery is normal size. Inferior vena cava collapse with respiration. Pericardium/Pleural No pericardial effusion. Medication Diluted definity 1.5ml given slow IV push to enhance endocardial definition. MMode/2D Measurements & Calculations LVIDd: 5.5 cm IVSd: 1.0 cm Ao root diam: 3.5 cm LVIDs: 3.7 cm LVPWd: 1.1 cm RVDd: 3.5 cm FS: 32.7 % LAV(MOD-bp): 59.5 ml LVAd ap4: 36.4 cm2 SV(MOD-sp4): 69.7 ml LAV(MOD-bp) Indexed: 28.7 ml/m2 LVLd ap4: 7.7 cm SI(MOD-sp4): 33.6 ml/m2 LAV(MOD-sp2): 48.7 ml EDV(MOD-sp4): 146.0 ml LAV(MOD-sp4): 66.1 ml EDV(sp4-el): 145.8 ml LVAs ap4: 22.9 cm2 LVLs ap4: 5.9 cm ESV(MOD-sp4): 76.2 ml ESV(sp4-el): 76.0 ml EF(MOD-sp4): 47.8 % EF(sp4-el): 47.8 % SV(sp4-el): 69.8 ml LA A4 area: 23.7 cm2 LA dimension(2D): 4.1 cm RA A4 area: 16.1 cm2 Doppler Measurements & Calculations MV E max mitzy: 104.4 cm/sec Ao V2 max: 182.7 cm/sec LV V1 max: 130.5 cm/sec Ao max P.4 mmHg LV V1 max P.8 mmHg Ao V2 mean: 126.4 cm/sec LV V1 mean P.7 mmHg Ao mean P.1 mmHg LV V1 mean: 91.0 cm/sec Ao V2 VTI: 29.6 cm LV V1 VTI: 23.9 cm AV (velocity ratio): 0.81 PA V2 max: 91.6 cm/sec ECHO/Echo Complete W/ Contrast Interpretation Summary Normal LV size. The left ventricular ejection fraction is 55 %. Liver cyst noted. Contrast injection was performed. Compared to previous study, the left ventricular systolic function has improved.. Ordering Physician: Neri Arana Referring Physician: Marie Maciel M.D. Performed By: Mary Westbrook RDCS
[2024-06-15] MEDS: 0.9% Saline Lock 10 ML Syringe IV ×2 (04:35→23:08)
[2024-06-15] MEDS: 0.9% Normal Saline (1000mL) 1,000 ML 70 ML IV (04:35)
[2024-06-15 04:57] LABS: Cholesterol 148 mg/dL (200); High Density Lipoprotein 46 mg/dL; Triglycerides 189 mg/dL; Troponin-I HS 35 pg/mL (3.0-78.0); Very Low Density Lipoprotein 38 mg/dL (5-40)
[2024-06-15] MEDS: Heparin Injection (Vial) 5,000 UNIT/ML VIAL 5000 UNIT SC ×3 (06:36→22:59)
[2024-06-15] MEDS: Levothyroxine 50 MCG Tablet PO (06:36)
[2024-06-15 06:50] LABS: Absolute Lymphocyte Count 0.59 X10^3/uL (0.83-4.51); Absolute Neutrophil Count 9.9 X10^3/uL (2.0-7.7); Basophil# 0.03 X10^3/uL; Basophil% 0.3 % (0-1); Eosinophil# 0.29 X10^3/uL; Eosinophils% 2.5 % (0-5); Hematocrit 34.8 % (40-54); Hemoglobin 10.7 g/dL (13.0-16.5); Lymphocyte # 0.59 X10^3/ul (0.83-4.51); Lymphocyte % 5.1 % (19-41); Mean Corp Hgb Conc 30.7 g/dL (32-36); Mean Corpuscular Hgb 25.1 pg (27.0-32.0); Mean Corpuscular Volume 81.5 fL (80-94); Mean Platelet Vol. 8.6 fl (6.2-12.0); Monocyte# 0.73 X10^3/uL; Monocyte% 6.3 % (0-10); NRBC Flagged by Analyzer 0 % (0-5); Neutrophil # 9.93 X10^3/uL (2.7-7.7); Neutrophil % 85.2 % (47-70); POSITIVE DIFFERENTIAL YES; POSITIVE MORPHOLOGY YES; Platelet Count 256 K/mm3 (150-450); Red Blood Count 4.27 M/mm3 (4.6-6.2); White Blood Count 11.6 K/mm3 (4.4-11.0)
--- NOTE | 2024-06-15 06:52 | NURSING ---
Pt blood sugar this AM was 69, MD notified. Juice given per protocol. Libia Huerta RN
[2024-06-15 07:02] LABS: Differential Indicated SCAN CRITERIA MET
[2024-06-15 07:05] LABS: Hemoglobin A1c 6.2 % (3.8-5.6)
[2024-06-15 07:06] LABS: Bedside Glucose 69 mg/dL (74-106)
[2024-06-15 07:08] LABS: Vitamin B12 > 2000 pg/mL (211-911)
[2024-06-15 07:09] LABS: ALB/GLOB Ratio 1.1 RATIO (0.9-2.4); AST(SGOT) 7 U/L (15-37); Alanine Aminotransfer ALT/SGPT 7 U/L (16-61); Alcohol, Blood (Medical)-Serum < 3.0 mg/dL; Alkaline Phosphatase 50 U/L (45-117); Anion Gap 6 (5-15); BUN 28 mg/dL (7-18); BUN/Creat Ratio 12.4 RATIO (10-20); Calcium,Total 8.9 mg/dL (8.5-10.1); Chloride 102 mmol/L (98-107); Creatinine, Serum 2.25 mg/dL (0.70-1.30); EST Glomerular Filtration Rate 30 mL/min (>60); Est Glom Filt Rate - Afr Amer 36 mL/min (>60); Estimated Creatinine Clearance 27.67 ml/min; Globulin 2.7 g/dL (2.2-4.2); Glucose 80 mg/dL (74-106); Magnesium 1.7 mg/dL (1.6-2.6); Phosphorus 4.3 mg/dL (2.5-4.9); Potassium 3.5 mmol/L (3.5-5.1); Protein, Total 5.7 g/dL (6.4-8.2); Sodium Level 137 mmol/L (136-145); Troponin-I HS 31 pg/mL (3.0-78.0)
[2024-06-15 07:18] LABS: Bedside Glucose 66 mg/dL (74-106)
--- NOTE | 2024-06-15 07:19 | PN.HOSP_ITS ---
Reason for Visit Reason for Visit: Diagnoses Type 2 diabetes mellitus without complications (06/15/24) Deficiency of other specified B group vitamins (06/15/24) Transient cerebral ischemic attack, unspecified (06/15/24) Cardiomyopathy, unspecified (06/15/24) Bifascicular block (06/15/24) Orthostatic hypotension (06/15/24) Syncope and collapse (06/15/24) Personal history of transient ischemic attack (TIA), and cerebral infarction without residual deficits (06/15/24) Presence of coronary angioplasty implant and graft (06/15/24) Subjective Subjective Patient since admission with no reoccurrence events however he has had continued hypoglycemia and some concern per discussion that this is significantly related to his initial presentation as hemoglobin A1c is only 6.2%. Discussed with patient concerns and is amenable discontinuation of any scheduled insulin and continuation of only mild sliding scale with continued monitoring of blood sugars. Discussed likely he would be discharged off scheduled aggressive insulin therapy and may need to consider transitioning back to oral regimen if appropriate but this would be outpatient likely. Patient denies fevers, chills, nausea, emesis, abdominal pain, chest pain or dyspnea. Objective Data Objective Data Vital Signs: Vital Signs Temp Pulse Resp BP Pulse Ox O2 Del Method 97.4 F L 76 18 121/85 H 94 Room Air 06/15/24 04:30 06/15/24 04:30 06/15/24 04:30 06/15/24 04:30 06/15/24 04:30 06/15/24 05:00 Oxygen Delivery Method Room Air Weight: 269 lb 6.478 oz Body Mass Index (BMI) 47.7 Intake & Output: Intake and Output for Last 24 Hours 06/13/24 06/14/24 06/15/24 23:59 23:59 23:59 Intake Total 590 / 590 Balance 590 / 590 Lab / Micro Data 06/15/24 06:17 06/15/24 06:17 Labs: Laboratory Results - last 24 hr 06/14/24 22:40: WBC 11.2 H, RBC 5.14, Hgb 13.3, Hct 43.5, MCV 84.6, MCH 25.9 L, MCHC 30.6 L, RDW Std Deviation 70.2 H, RDW Coeff of Perla 23.6 H, Plt Count 212, MPV 9.6, Immature Gran % (Auto) 0.900, Neut % (Auto) 86.4 H, Lymph % (Auto) 6.9 L, Green % (Auto) 5.0, Eos % (Auto) 0.4, Baso % (Auto) 0.4, Absolute Neuts (auto) 9.7 H, Absolute Lymphs (auto) 0.77 L, Nucleated RBC % 0, Platelet Estimate ADEQUATE, Hypochromasia RARE, Anisocytosis 2+, Sodium 136, Potassium 3.9, Chloride 102, Carbon Dioxide 21.0, Anion Gap 14, BUN 26 H, Creatinine 2.25 H, Estim Creat Clear Calc 25.79, Est GFR (MDRD) Af Amer 36 L, Est GFR (MDRD) Non-Af 30 L, BUN/Creatinine Ratio 11.6, Glucose 120 H, Calcium 9.5, Magnesium 1.8 06/14/24 23:49: PT 15.0 H, INR 1.2, APTT 26.1 06/15/24 04:17: Troponin I High Sens 35, Triglycerides 189, Cholesterol 148, LDL Cholesterol 64, VLDL Cholesterol 38, HDL Cholesterol 46, Folate 8.00, TSH 3.230 06/15/24 06:17: WBC 11.6 H, RBC 4.27 L, Hgb 10.7 L, Hct 34.8 L, MCV 81.5, MCH 25.1 L, MCHC 30.7 L, RDW Std Deviation 67.0 H, RDW Coeff of Perla 23.0 H, Plt Count 256, MPV 8.6, Immature Gran % (Auto) 0.600, Neut % (Auto) 85.2 H, Lymph % (Auto) 5.1 L, Green % (Auto) 6.3, Eos % (Auto) 2.5, Baso % (Auto) 0.3, Absolute Neuts (auto) 9.9 H, Absolute Lymphs (auto) 0.59 L, Nucleated RBC % 0, Sodium 137, Potassium 3.5, Chloride 102, Carbon Dioxide 29.0, Anion Gap 6, BUN 28 H, C reatinine 2.25 H, Estim Creat Clear Calc 27.67, Est GFR (MDRD) Af Amer 36 L, Est GFR (MDRD) Non-Af 30 L, BUN/Creatinine Ratio 12.4, Glucose 80, Hemoglobin A1c 6.2 H, Calcium 8.9, Phosphorus 4.3, Magnesium 1.7, Total Bilirubin 0.70, AST 7 L , ALT 7 L, Alkaline Phosphatase 50, Troponin I High Sens 31, Total Protein 5.7 L , Albumin 3.0 L, Globulin 2.7, Albumin/Globulin Ratio 1.1, Vitamin B12 > 2000 H, Ethyl Alcohol < 3.0 06/15/24 06:35: POC Glucose 69 L 06/15/24 07:01: POC Glucose 66 L Radiography Diagnostic Testing: Radiology Impression Brain CT 06/14/24 23:17 IMPRESSION: No acute intracranial pathology. AIDOC was utilized to assist in identifying pertinent positive findings. Electronically Signed: Helio Styles MD at 0:52 EST , Physical Exam Narrative Physical Examination: General: Awake, alert, oriented x 3 and cooperative, seated upright in the PCU bed, fatigued otherwise no acute distress. Skin: Normal color, normal turgor, no icterus, no cyanosis except occasional stage ecchymoses, abrasions. HEENT: AT/NC, EOMI, PERRLA, MMM. Lungs: Diminished, greater bases, appropriate effort, no evidence of any distress, no rales, ronchi or wheezing. Heart: Regular rate and rhythm; no gallop, rub audible. Abdomen: Soft, morbidly obese, NTTP, ND, distant BS. Extremities: No cyanosis, no clubbing, bilateral ankle to distal neal not markedly pitting edema. Neurological: Patient awake, alert, oriented as noted, cognitive function intact; pupils equally reactive to light and accommodation, cranial nerves gross normal, moving all 4 extremities, strength mildly to moderately globally decreased likely secondary to advanced age and underlying comorbidities, no focal deficits. Psychiatric: Affect appears normal, no acute evidence of depressive or anxiety feelings. Assessment & Plan Assessment/Plan (1) Syncope: QUALIFIERS: Syncope type: unspecified Qualified Code(s): R55 - Syncope and collapse PLAN: Plan The patient is an 88 y/o M w/ PMHx: Hx CVA, GERD, BPH with obstructive pathology, HTN, HLD, Hypothyroidism, Morbid obesity, CKD stage III unclear subtype, Chronic anemia/Fe deficiency anemia, DANYELL, Diabetes mellitus type II with chronic neuropathy, CAD s/p PCI who presents to the [facility] ED on 06/15/24 with history of slurred speech and syncopal event with family noting that they have been sitting down to dinner when he suddenly lost consciousness with an episode of slurred speech that lasted approximately 1 minute and then resolved giving him orange juice which seemed to improve his symptoms prompting ED evaluation to be cautious. #1. Syncopal events possibly associated with hypoglycemia however patient with altered mentation and slurred speech with possibility of TIA: CT of the head with no acute intracranial findings. Admitted to PCU, MRI brain requested, carotid ultrasounds requested, ECHO requested, PT/OT/Speech/Nutrition evaluation per protocol. Patient continued on Plavix, add aspirin, continued on home statin, FLP with total cholesterol 148, triglycerides 189, LDL 64, VLDL 38, HDL 46, mag 1.8, TSH 3.230, folic acid 8.0, HgbA1c 6.2%, UDS pending. At the [place] level less than 3. Vitamin B12 levels >2,000. Maintain on fall and aspiration precautions. Cardiac enzymes initial 35, repeat 31, continue to trend as needed. Continue to monitor blood sugars with noted 06/15/24 6:35 AM blood sugar 69 and repeat 66 thus hypoglycemia still a concern with evaluation/intervention as noted #2. Will continue to monitor blood sugars off of insulin therapy and if remain appropriate over the next 24 hours would likely plan discharge in a.m. 06/16/2024 with close early follow-up with primary care physician with further medication adjustments pending blood sugar log trending as long as no acute findings on MRI of the brain. #2. Diabetes mellitus type II with chronic neuropathy with hypoglycemia with concern for hypoglycemic events associated with #1: Hold oral home regimen, given persistent hypoglycemia evident will hold insulin regimen, hemoglobin A1c not significantly elevated at 6.2%, once cleared for oral intake would initiate ADA diet, accu checks w/ ISS, nutrition consulted for education and teaching. Once ascertain how much insulin is being used may readjust home regimen. #3. History CVA with chronic mild cognitive impairment: Continue Plavix, aspirin as noted, statin therapy, temporally holding hypertensive regimen for permissive hypertension with current agents per stroke protocol, continue diabetic regimen with adjustments as noted. #4. CAD: Status post PCI 2016 w/ ISMO and Ranexa with subsequent cardiomyopathy and known history of cardiac arrhythmia with RBBB with LAFB, continue aspirin, Plavix, statin, holding hypertensive regimen for permissive hypertension with readdition of appropriate, continue Ranexa regimen #5. Chronic Kidney Disease Stage III, unclear subtype: Admission BUN/Cr 26/2.25, baseline renal function primarily 1.5-2.0, 06/15/2024 BUN/creatinine 28/2.25, GFR 30, repeat BMP in AM. #6. Parkinson's disease: Complicates presentation, maintain on fall precautions, continued on Sinemet regimen, PT/OT/case management consulted for discharge planning #7. Chronic anemia/iron deficiency anemia: Admission hemoglobin 13.3, MCV 84.6, baseline more so baseline 11-12, 06/15/2024 hemoglobin 10.7 following judicious hydration upon presentation, continue CBC trending, continue iron supplementation. #8. Adrenal insufficiency: We will continue patient home fludrocortisone regimen. #9. Anxiety and depression: We will continue patient home escitalopram and trazodone regimen. #10. Hypothyroidism: We will continue patient on levothyroxine regimen, TSH normal as noted. #11. Hypertension: Continue permissive hypertension with as needed agents per stroke protocol if needed. #12. Hyperlipidemia: Continue patient statin therapy, FLP as noted. #13. Obesity: Weight loss and lifestyle changes encouraged. #14. Former tobacco use: Encourage continued tobacco cessation. #15. GERD: We will continue patient on PPI. #16. DANYELL: Discerning if uses PAP therapy. #17. Prophylaxis: Heparin. Charges/Coding Procedures Hospitalists Procedures: Other Procedure - See Report (Billing CODE: [id number], unable to bill as admitted same day.)
[2024-06-15] MEDS: Dextrose 10%-Water 250 ML 999 ML IV (07:33)
[2024-06-15 08:00] LABS: Differential Comment SCANNED; Platelet Estimate ADEQUATE (ADEQ)
[2024-06-15 08:01] LABS: Acanthocytes RARE; Anisocytosis 2+; Crenated RBC 1+; Macrocytosis 1+; Microcytosis 1+; Polychromasia 1+; Schistocytes RARE; Target Cells 2+; Tear Drop Cell 1+
[2024-06-15] MEDS: Ferrous Sulfate 325 MG Tablet PO (10:24)
[2024-06-15] MEDS: Pantoprazole Sodium 40 MG Tablet PO (10:24)
[2024-06-15] MEDS: Zinc Sulfate 50 mg zinc (220 mg) ORAL capsule PO (10:24)
[2024-06-15] MEDS: Pravastatin 20 MG Tablet PO (10:25)
[2024-06-15] MEDS: Ascorbic Acid 500 MG Tablet 1000 MG PO (10:25)
[2024-06-15] MEDS: Cyanocobalamin 500 MCG Tablet 1000 MCG PO (10:25)
[2024-06-15] MEDS: Ranolazine 500 MG Tablet PO ×2 (10:25→22:59)
[2024-06-15] MEDS: Escitalopram Oxalate 10 MG Tablet PO (10:26)
[2024-06-15] MEDS: Multivitamin (Healthy Eyes) Capsule 1 CAP PO ×2 (10:26→22:59)
[2024-06-15] MEDS: Fludrocortisone Acetate 0.1 MG Tablet PO (10:26)
[2024-06-15] MEDS: Carbidopa/Levodopa 25/100 Tablet PO ×3 (10:27→22:59)
[2024-06-15] MEDS: Clopidogrel Bisulfate 75 MG Tablet PO (10:27)
[2024-06-15] MEDS: Aspirin E.C. 81 MG Tablet PO (10:27)
[2024-06-15] MEDS: Cholecalciferol (Vit D3) 125 MCG CAPSULE (5,000 UNITS) PO (10:28)
[2024-06-15 10:51] LABS: Bedside Glucose 103 mg/dL (74-106)
[2024-06-15 11:06] LABS: Troponin-I HS 33 pg/mL (3.0-78.0)
[2024-06-15 12:52] LABS: Bedside Glucose 150 mg/dL (74-106)
[2024-06-15 16:31] LABS: Bedside Glucose 125 mg/dL (74-106)
--- NOTE | 2024-06-15 17:00 | CASEMGMT ---
Social Work- No findings of CVA per MRI report. NO PHQ9 needed at this time. SUJIT Gasca
--- NOTE | 2024-06-15 17:57 | CASEMGMT ---
Addendum entered by Carlos Angel 06/15/24 22:11: 1800: Pt's dtr, Kasey, and son-in-law was @ bedside. Pt agreeable to NANCI DELEON discussing dc planning w/them present. Pt lives w/, but she is currently admitted to [facility]. Pt has 6 adult children. Either son, Ulises, (lives in [facility]), or dtr, Kasey (lives in [place]) will take pt home @ dc. Family is supportive. Pt is independent @ home and manages his own medications. Pt states he has a functioning glucometer w/supplies, has all insulin and needles needed, and has all PO medications needed @ home. He wishes to discharge home and denies having any discharge needs or concerns. Original Note: NANCI DELEON NOTE: Intro role of CM to patient and [employer] form explained re: Observation status for treatment of TIA w/slurred speech.? Explained hospitalization will be paid per?his insurance policy for Outpatient billing?and condition will continue to be evaluated for Inpt necessity. Also let pt know that [facility] sends paper in the billing packet with their phone number if questions arise. Discussed Pharmacy section of [employer] form and self administered medication guideline.? Pt verbalizes understanding and does not have further questions. ?Form signed, copy made and placed in chart, and original given to pt. Christiano HILL RN, CM
[2024-06-15 23:37] LABS: Bedside Glucose 117 mg/dL (74-106)
[2024-06-16 01:15] VITALS: BMI 47.7
[2024-06-16 04:51] VITALS: BP 154/73; PULSE 62; RESP 18; TEMP 36.4; O2SAT 95
[2024-06-16] MEDS: Heparin Injection (Vial) 5,000 UNIT/ML VIAL 5000 UNIT SC (05:00)
[2024-06-16] MEDS: 0.9% Saline Lock 10 ML Syringe IV (05:00)
[2024-06-16] MEDS: Levothyroxine 50 MCG Tablet PO (05:00)
[2024-06-16 05:22] VITALS: BMI 39.8
[2024-06-16 05:45] LABS: Amphetamine Urine VISTA NEGATIVE (<1000 ng/mL); Barbiturate Urine VISTA NEGATIVE (< 200 ng/mL); Benzodiazepine Urine VISTA NEGATIVE (< 200 ng/mL); Cocaine Urine VISTA NEGATIVE (< 300 ng/mL); Ecstacy Urine VISTA NEGATIVE (< 500 ng/mL); Methadone Urine VISTA NEGATIVE (< 300 ng/mL); PCP Urine VISTA NEGATIVE (< 25 ng/mL); THC Urine VISTA NEGATIVE (< 50 ng/mL); Vista UDS pH Range 5
--- NOTE | 2024-06-16 05:46 | CPS ---
Pt uses home cpap unit here in hospital.
--- NOTE | 2024-06-16 06:37 | DS.PCM_ITS ---
Providers Date of Admission: 06/15/24 Date of Discharge: 06/16/24 Primary Care Physician: Dr. Marie Maciel MD Reason For Visit: SYNCOPE VS TIA, WITH SLURRED SPEECH X 2 Diagnosis Discharge Diagnosis (1) Syncope: Status: Acute Code(s): R55 - Syncope and collapse Qualifiers: Syncope type: unspecified Qualified Code(s): R55 - Syncope and collapse Plan: DISCHARGE DIAGNOSES: #1. Syncopal events suspected secondary to Acute Hypoglycemic event, low suspicion of TIA, CVA ruled out #2. Diabetes mellitus type II with chronic neuropathy with hypoglycemia with concern for hypoglycemic events associated with #1 #3. History CVA with chronic mild cognitive impairment #4. CAD #5. Chronic Kidney Disease Stage III, unclear subtype #6. Parkinson's disease #7. Chronic anemia/iron deficiency anemia #8. Adrenal insufficiency #9. Anxiety and depression #10. Hypothyroidism #11. Hypertension #12. Hyperlipidemia #13. Obesity #14. Former tobacco use #15. GERD #16. DANYELL on CPAP q HS Medications at Discharge Home Medications cholecalciferol (vitamin D3) 125 mcg (5,000 unit) capsule 5,000 unit PO DAILY vitamin 06/29/15 finasteride 5 mg tablet 5 mg PO DAILY prostate 06/29/15 aspirin 81 mg tablet,delayed release 81 mg PO DAILY heart health 07/24/15 acetaminophen 500 mg tablet 1,000 mg (2 x 500 mg) PO Q6H PRN PRN Pain Score 1- 302/19/20 Handi cap Placard #1 ea 10/14/20 vitamins A,C,W-empr-qqktaa 2,148 mcg-113 mg-45 mg-17.4 mg tablet (PreserVision AREDS) 1 tab PO BID 12/17/20 pen needle, diabetic 32 gauge x 1/4 #100 ea 12/25/20 clopidogrel 75 mg tablet 75 mg PO DAILY TIA #90 tabs 09/11/23 amlodipine 5 mg tablet 5 mg PO DAILY BP #90 tabs 09/19/23 pravastatin 20 mg tablet 20 mg PO DAILY cholesterol #90 tabs 10/03/23 Compression stockings (10-20) #2 ea 01/04/24 Left AFO #1 ea 01/04/24 levothyroxine 50 mcg tablet 50 mcg PO DAILY thyroid #90 tabs 02/01/24 escitalopram oxalate 10 mg tablet 10 mg PO DAILY #90 tabs 03/05/24 furosemide 40 mg tablet 40 mg PO DAILY #90 TABLETS 03/05/24 pantoprazole 40 mg tablet,delayed release See Rx Instructions .Route .COMPLEX #90 tabs 03/05/24 ranolazine 500 mg tablet,extended release,12 hr 500 mg PO BID #180 tabs 03/12/24 metformin 500 mg tablet 500 mg PO BIDCM diabetes #180 tabs 03/19/24 carbidopa 25 mg-levodopa 100 mg tablet (Sinemet) See Rx Instructions .Route .COMPLEX #150 tabs 03/28/24 fludrocortisone 0.1 mg tablet See Rx Instructions PO .COMPLEX #28 tabs 03/28/24 isosorbide mononitrate 30 mg tablet,extended release 24 hr 30 mg PO DAILY #90 TABLETS 04/01/24 cyclobenzaprine 5 mg tablet 5 mg PO BID PRN muscle spasm #20 tabs 05/20/24 ascorbic acid (vitamin C) 1,000 mg tablet (C-1000) 1 g PO DAILY 06/15/24 cyanocobalamin (vitamin B-12) 1,000 mcg tablet (Vitamin B-12) 1,000 mcg PO DAILY 06/15/24 ferrous sulfate 325 mg (65 mg iron) tablet (Feosol) 325 mg PO DAILY 06/15/24 folic acid 1 mg tablet 1 mg PO DAILY #30 tabs 06/15/24 hydrocodone-acetaminophen 5-325mg 5mg-325mg 0.5 - 1 tab PO BID PRN PRN pain 06/15/24 trazodone 50 mg tablet 25 mg PO QHS PRN PRN insomnia 06/15/24 zinc acetate 50 mg (zinc) capsule 50 mg PO DAILY 06/15/24 Hospital Course Operations None Procedures 2-D Echocardiogram and EKG Summary of Care Provided Minutes Spent on Discharge: 35 Hospital Course: The patient is an 88 y/o M w/ PMHx: Hx CVA, GERD, BPH with obstructive pathology, HTN, HLD, Hypothyroidism, Morbid obesity, CKD stage III unclear subtype, Chronic anemia/Fe deficiency anemia, DANYELL, Diabetes mellitus type II with chronic neuropathy, CAD s/p PCI who presented to the [facility] ED on 06/15/24 with history of slurred speech and syncopal event with family noting that they have been sitting down to dinner when he suddenly lost consciousness with an episode of slurred speech that lasted approximately 1 minute and then resolved giving him orange juice which seemed to improve his symptoms prompting ED evaluation to be cautious. Admitted to PCU for ongoing monitoring. MRI brain with no acute intracranial findings nor any evidence of any acute or subacute or even a remote infarct. Echocardiogram with normal LV size, LV EF 55%, contrast injection performed, compared to previous study LV systolic function improved. FLP with total cholesterol 148, triglycerides 189, LDL 64, VLDL 38, HDL 46. PT/OT/Speech/Nutrition evaluation per protocol. Patient continued on Plavix, aspirin, continued on home statin, FLP with total cholesterol 148, triglycerides 189, LDL 64, VLDL 38, HDL 46, mag 1.8, TSH 3.230, folic acid 8.0, HgbA1c 6.2%, UDS negative. EtOH level less than 3. Vitamin B12 levels >2,000. Cardiac enzymes initial 35, repeat 31, continue to trend as needed. Continue to monitor blood sugars with noted 06/15/24 6:35 AM blood sugar 69 and repeat 66 thus hypoglycemia still his main concern despite admission decrease of his regimen thus insulin regimen d/c completely. BS improved following. Given clinical improvement, no evidence of CVA, blood sugars improved with interventions as noted, patient discharged to home in improved status with requested follow-up with PCP within 3-5 days. DAY OF DISCHARGE PROGRESS NOTE: Subjective: Patient without acute event overnight per self and nursing report. Patient denies fever, chills, nausea, emesis, abdominal pain, chest pain or dyspnea. Patient blood sugars remained improved. Discussed plan of care and plan for medication adjustment/discontinuation and patient notes understanding but did state this would all be in writing as well. Patient agreeable to discharge to discharge to home with ongoing hold on insulin therapy and cautious continuation of oral regimen only with ongoing BS trending and hold parameters. Patient will be discharged with follow-up with primary care physician within 3-5 days. Objective: T98.9, heart rate 71, BP 140/79, respiratory rate 16, 95% on room air. Physical Examination: General: Awake, alert, oriented x 3 and cooperative, seated upright in the PCU bedside chair, no acute distress, notes he is feeling improved. Skin: Normal color, normal turgor, no icterus, no cyanosis except occasional stage ecchymoses, abrasions. HEENT: AT/NC, EOMI, PERRLA, MMM. Lungs: Diminished, greater bases, appropriate effort, no evidence of any distress, no rales, ronchi or wheezing. Heart: Regular rate and rhythm; no gallop, rub audible. Abdomen: Soft, morbidly obese, NTTP, ND, distant BS. Extremities: No cyanosis, no clubbing, bilateral ankle to distal neal not markedly pitting edema. Neurological: Patient awake, alert, oriented as noted, cognitive function intact; pupils equally reactive to light and accommodation, cranial nerves gross normal, moving all 4 extremities, strength improving, mildly globally decreased. Psychiatric: Affect appears normal, no acute evidence of depressive or anxiety feelings. Assessment and Plan: Please see hospital summary above. Weight / BMI Weight Weight: 224 lb 10.417 oz Body Mass Index (BMI) 39.8 ABG / Lab / Microbiology Data 06/15/24 06:17 06/15/24 06:17 Laboratory: Laboratory Results - last 24 hr 06/15/24 16:12: POC Glucose 125 H 06/15/24 22:57: POC Glucose 117 H 06/16/24 05:06: Urine Opiates Screen NEGATIVE, Urine Methadone Screen NEGATIVE, Ur Barbiturates Screen NEGATIVE, Ur Phencyclidine Scrn NEGATIVE, Ur Amphetamines Screen NEGATIVE, MDMA (Ecstasy) Screen NEGATIVE, U Benzodiazepines Scrn NEGATIVE, Urine Cocaine Screen NEGATIVE, U Cannabinoids Screen NEGATIVE, Ur Drug Screen Comment 06/16/24 06:35: POC Glucose 130 H 06/16/24 11:09: POC Glucose 219 H Radiography Diagnostic Testing: Radiology Impression Echocardiogram 06/15/24 03:42 Interpretation Summary Normal LV size. The left ventricular ejection fraction is 55 %. Liver cyst noted. Contrast injection was performed. Compared to previous study, the left ventricular systolic function has improved.. Ordering Physician: Neri Arana Referring Physician: Marie Maciel M.D. Performed By: Mary Westbrook RDCS D/C Instructions DC O2, CPAP, BIPAP Needs Home O2 Discharge instructions: No DC home with Oxygen: No Meaningful Use Info Meaningful Use Meaningful Use Diagnoses (Choose all that apply): None applicable Ischemic Stroke Statin Dosing Therapy Reference: STATIN DOSE THERAPY REFERENCE: * Patients > 75 years receive moderate or high dose statin therapy. * Patients 75 years or YOUNGER should receive HIGH intensity statin dose unless contraindicated. You will be required to document reason for non-treatment if statin daily dose does not meet guidelines. HIGH DOSE STATIN THERAPY DAILY Atorvastatin > than or = to 40 mg Rosuvastatin > than or = to 20 mg Amlodipine + Atorvastatin > than or = to 2.5/40 mg Ezetimibe + Simvastatin 10/80 mg Simvastatin 80mg Discharge Plan Admission Admit Date/Time: 06/15/24 02:44 Primary Reason for Your Visit: Syncopal event, Hypoglycemia Attending Provider: Amalia Moncada Primary Care Provider: Marie Maciel Consulting Providers: Neri Arana Instructions Patient Instructions: Hypoglycemia (Low Blood Sugar) Additional Instructions / Restrictions: ADDITIONAL INSTRUCTIONS/DIRECTION: #1. Syncopal event, High suspicion secondary to Acute Hypoglycemic (low blood sugar events) as opposed to transient ischemic attack, STROKE ruled out: --HgBA1c 6.2% with upon presentation ongoing episodes of hypoglycemia felt likely the primary etiology for syncopal event and acute presentation. We have stopped your short and long acting insulin at this time given persistently low blood sugars even with attempts to decrease these regimens. At discharge please keep a log of your blood sugars. Please continue to avoid using these agents until ongoing blood sugar trending reviewed with your primary care at follow-up. We are cautiously going to allow restart as noted in medications of your metformin only BUT this also can cause low blood sugars so please monitor your blood sugars and if you are having again recurrent low BS events STOP this medication immediately and review with primary care at follow-up. Also, as noted if your blood sugars are not routinely > 140 then this medication also should be held until re-evaluation with your primary care physician. --CT of the head with no acute intracranial findings. --MRI brain with no acute intracranial findings nor any evidence of any acute or subacute or even a remote infarct. --Echocardiogram with normal LV size, LV EF 55%, contrast injection performed, compared to previous study LV systolic function improved. --FLP with total cholesterol 148, triglycerides 189, LDL 64, VLDL 38, HDL 46. --Additional labs included mag 1.8, TSH 3.230, folic acid 8.0. Given your folic acid level was notably low normal range at discharge we did order ongoing oral supplementation sent to your pharmacy. Please have follow-up level with your primary care physician outpatient to assure improved level following this regimen intervention. Discharge Orders/Prescriptions Prescriptions: New folic acid 1 mg tablet 1 mg PO DAILY Qty: 30 0RF Continued PreserVision AREDS 7,160 unit- 113 mg-100 unit tablet 1 tab PO BID Rx Instructions: administer with AM and PM meals fludrocortisone 0.1 mg tablet See Rx Instructions PO .COMPLEX Qty: 28 5RF Rx Instructions: Take 1 tablet orally in the morning 6 days/week (Monday, Monday, Monday, , Monday, Monday) carbidopa-levodopa [Sinemet] 25-100 mg tablet See Rx Instructions .ROUTE .COMPLEX Qty: 150 5RF Rx Instructions: Take 2 tabs orally every morning, 1 tab every mid-day, and 2 tabs every night (DME) Left AFO See Rx Instructions .Route .MEDSUPPLY Qty: 1 0RF Rx Instructions: As directed (DME) Compression stockings (10-20) See Rx Instructions .Route .MEDSUPPLY Qty: 2 0RF Rx Instructions: As directed cholecalciferol (vitamin D3) 5,000 UNIT capsule 5,000 unit PO DAILY Patient Comments: SUPPLIMENT finasteride 5 MG tablet 5 mg PO DAILY Patient Comments: PROSTATE aspirin 81 MG tablet,delayed release (DR/EC) 81 mg PO DAILY acetaminophen 500 MG tablet 1,000 mg PO Q6H PRN PRN (Reason: Pain Score 1-3/10) 0RF trazodone 50 mg tablet 25 mg PO QHS PRN PRN (Reason: insomnia) hydrocodone-acetaminophen 5-325 mg tablet 0.5 - 1 tab PO BID PRN PRN (Reason: pain) zinc acetate 50 mg (zinc) capsule 50 mg PO DAILY ferrous sulfate [Feosol] 325 mg (65 mg iron) tablet 325 mg PO DAILY cyanocobalamin (vitamin B-12) [Vitamin B-12] 1,000 mcg tablet 1,000 mcg PO DAILY ascorbic acid (vitamin C) [C-1000] 1,000 mg tablet 1 g PO DAILY (DME) Handi cap Placard See Rx Instructions .Route .MEDSUPPLY Qty: 1 0RF Rx Instructions: difficulty walking short distance. expires in 5 years (DME) pen needle, diabetic 32 gauge x 1/4 needle See Rx Instructions .ROUTE .MEDSUPPLY Qty: 100 2RF Rx Instructions: As directed clopidogrel 75 mg tablet 75 mg PO DAILY Qty: 90 3RF amlodipine 5 mg tablet 5 mg PO DAILY Qty: 90 3RF pravastatin 20 mg tablet 20 mg PO DAILY Qty: 90 3RF levothyroxine 50 mcg tablet 50 mcg PO DAILY Qty: 90 3RF furosemide 40 mg tablet 40 mg PO DAILY Qty: 90 3RF escitalopram oxalate 10 mg tablet 10 mg PO DAILY Qty: 90 3RF Rx Instructions: Take 1/2 tablet for 4 days then increase to 1 tablet. pantoprazole 40 mg tablet,delayed release (DR/EC) See Rx Instructions .ROUTE .COMPLEX Qty: 90 3RF Dose Instruction: TAKE 1 TABLET BY MOUTH ONCE DAILY FOR REFLUX Rx Instructions: TAKE 1 TABLET BY MOUTH ONCE DAILY FOR REFLUX ranolazine 500 mg tablet extended release 12 hr 500 mg PO BID Qty: 180 3RF isosorbide mononitrate 30 mg tablet extended release 24 hr 30 mg PO DAILY Qty: 90 3RF Held cyclobenzaprine 5 mg tablet 5 mg PO BID PRN (Reason: muscle spasm) Qty: 20 0RF Hold Instructions: Resume on 06/22/24. Given recent syncopal event would hold this sedative medication and re-discuss with your primary care physician. Rx Instructions: Watch for signs of sedation. metformin 500 mg tablet 500 mg PO BIDCM Qty: 180 3RF Hold Instructions: Resume on 07/26/24. May resume your metformin as long as blood sugars have remained > 140 upon serial checks. If they are lower than this DO NOT restart until review with your primary care physician. Discontinued insulin NPH and regular human 100 unit/mL (70-30) suspension 24 unit SC QHS Humulin 70/30 U-100 Insulin 100 unit/mL (70-30) suspension 34 unit subcut DAILY Referrals / Follow Up: Marie Maciel MD [Primary Care Provider] - (Follow-up within 3-5 days to review admission, re-evaluation BS trending.) Disposition Disposition (needs filled in before D/C Order can be placed): Home, Self Care Charges/Coding Visit Charges Inpatient E&M: 03548 Disch Hosp >30min
[2024-06-16 07:11] LABS: Bedside Glucose 130 mg/dL (74-106)
[2024-06-16] MEDS: Ascorbic Acid 500 MG Tablet 1000 MG PO (09:40)
[2024-06-16] MEDS: Aspirin E.C. 81 MG Tablet PO (09:40)
[2024-06-16] MEDS: Ferrous Sulfate 325 MG Tablet PO (09:40)
[2024-06-16] MEDS: Pravastatin 20 MG Tablet PO (09:41)
[2024-06-16] MEDS: Multivitamin (Healthy Eyes) Capsule 1 CAP PO (09:41)
[2024-06-16] MEDS: Ranolazine 500 MG Tablet PO (09:41)
[2024-06-16] MEDS: Pantoprazole Sodium 40 MG Tablet PO (09:41)
[2024-06-16] MEDS: Cholecalciferol (Vit D3) 125 MCG CAPSULE (5,000 UNITS) PO (09:41)
[2024-06-16] MEDS: Escitalopram Oxalate 10 MG Tablet PO (09:41)
[2024-06-16] MEDS: Carbidopa/Levodopa 25/100 Tablet PO ×2 (09:41→13:13)
[2024-06-16] MEDS: Cyanocobalamin 500 MCG Tablet 1000 MCG PO (09:41)
[2024-06-16] MEDS: Zinc Sulfate 50 mg zinc (220 mg) ORAL capsule PO (09:41)
[2024-06-16] MEDS: Clopidogrel Bisulfate 75 MG Tablet PO (09:41)
[2024-06-16 10:38] VITALS: BP 138/79; PULSE 71; RESP 16; TEMP 37.2; O2SAT 95
--- NOTE | 2024-06-16 11:12 | DCINST_ITS ---
Discharge Instructions Diet Discharge Diet: Low fat / Low cholesterol and 2000 Calorie Control Diet DC O2, CPAP, BIPAP needs Home O2 Discharge instructions: No Dressing / Incision Discharge Activity: - (Encourage continued routine activity in the home. Avoid > moderate activity until cleared per primary care.) May resume sexual activity in: 10-14 days Weight Bearing Status: Weight bearing as tolerated Dressing / Incision Call your doctor if you observe: Fever of 101 or Higher, Inability to have a bowel movement, Shortness of breath, Dizziness, Fainting spells, Swelling in the ankles, Chest pain, Increased palpitations (irregular heartbeat), Calf discomfort and Uncontrolled pain Follow Up Care Test Results: Test results from this visit will be discussed in further detail at your follow- up appointment, if applicable. Discharge Plan Admission Admit Date/Time: 06/15/24 02:44 Primary Reason for Your Visit: Syncopal event, Hypoglycemia Attending Provider: Amalia Moncada Primary Care Provider: Marie Maciel Consulting Providers: Neri Arana Instructions Patient Instructions: Hypoglycemia (Low Blood Sugar) Additional Instructions / Restrictions: ADDITIONAL INSTRUCTIONS/DIRECTION: #1. Syncopal event, High suspicion secondary to Acute Hypoglycemic (low blood sugar events) as opposed to transient ischemic attack, STROKE ruled out: --HgBA1c 6.2% with upon presentation ongoing episodes of hypoglycemia felt likely the primary etiology for syncopal event and acute presentation. We have stopped your short and long acting insulin at this time given persistently low blood sugars even with attempts to decrease these regimens. At discharge please keep a log of your blood sugars. Please continue to avoid using these agents until ongoing blood sugar trending reviewed with your primary care at follow-up. We are cautiously going to allow restart as noted in medications of your metformin only BUT this also can cause low blood sugars so please monitor your blood sugars and if you are having again recurrent low BS events STOP this medication immediately and review with primary care at follow-up. Also, as noted if your blood sugars are not routinely > 140 then this medication also should be held until re-evaluation with your primary care physician. --CT of the head with no acute intracranial findings. --MRI brain with no acute intracranial findings nor any evidence of any acute or subacute or even a remote infarct. --Echocardiogram with normal LV size, LV EF 55%, contrast injection performed, compared to previous study LV systolic function improved. --FLP with total cholesterol 148, triglycerides 189, LDL 64, VLDL 38, HDL 46. --Additional labs included mag 1.8, TSH 3.230, folic acid 8.0. Given your folic acid level was notably low normal range at discharge we did order ongoing oral supplementation sent to your pharmacy. Please have follow-up level with your primary care physician outpatient to assure improved level following this regimen intervention. Discharge Orders/Prescriptions Prescriptions: New folic acid 1 mg tablet 1 mg PO DAILY Qty: 30 0RF Continued PreserVision AREDS 7,160 unit- 113 mg-100 unit tablet 1 tab PO BID Rx Instructions: administer with AM and PM meals fludrocortisone 0.1 mg tablet See Rx Instructions PO .COMPLEX Qty: 28 5RF Rx Instructions: Take 1 tablet orally in the morning 6 days/week (Monday, Monday, Monday, , Monday, Monday) carbidopa-levodopa [Sinemet] 25-100 mg tablet See Rx Instructions .ROUTE .COMPLEX Qty: 150 5RF Rx Instructions: Take 2 tabs orally every morning, 1 tab every mid-day, and 2 tabs every night (DME) Left AFO See Rx Instructions .Route .MEDSUPPLY Qty: 1 0RF Rx Instructions: As directed (DME) Compression stockings (10-20) See Rx Instructions .Route .MEDSUPPLY Qty: 2 0RF Rx Instructions: As directed cholecalciferol (vitamin D3) 5,000 UNIT capsule 5,000 unit PO DAILY Patient Comments: SUPPLIMENT finasteride 5 MG tablet 5 mg PO DAILY Patient Comments: PROSTATE aspirin 81 MG tablet,delayed release (DR/EC) 81 mg PO DAILY acetaminophen 500 MG tablet 1,000 mg PO Q6H PRN PRN (Reason: Pain Score 1-3/10) 0RF trazodone 50 mg tablet 25 mg PO QHS PRN PRN (Reason: insomnia) hydrocodone-acetaminophen 5-325 mg tablet 0.5 - 1 tab PO BID PRN PRN (Reason: pain) zinc acetate 50 mg (zinc) capsule 50 mg PO DAILY ferrous sulfate [Feosol] 325 mg (65 mg iron) tablet 325 mg PO DAILY cyanocobalamin (vitamin B-12) [Vitamin B-12] 1,000 mcg tablet 1,000 mcg PO DAILY ascorbic acid (vitamin C) [C-1000] 1,000 mg tablet 1 g PO DAILY (DME) Elizabeth Figueroa See Rx Instructions .Route .MEDSUPPLY Qty: 1 0RF Rx Instructions: difficulty walking short distance. expires in 5 years (DME) pen needle, diabetic 32 gauge x 1/4 needle See Rx Instructions .ROUTE .MEDSUPPLY Qty: 100 2RF Rx Instructions: As directed clopidogrel 75 mg tablet 75 mg PO DAILY Qty: 90 3RF amlodipine 5 mg tablet 5 mg PO DAILY Qty: 90 3RF pravastatin 20 mg tablet 20 mg PO DAILY Qty: 90 3RF levothyroxine 50 mcg tablet 50 mcg PO DAILY Qty: 90 3RF furosemide 40 mg tablet 40 mg PO DAILY Qty: 90 3RF escitalopram oxalate 10 mg tablet 10 mg PO DAILY Qty: 90 3RF Rx Instructions: Take 1/2 tablet for 4 days then increase to 1 tablet. pantoprazole 40 mg tablet,delayed release (DR/EC) See Rx Instructions .ROUTE .COMPLEX Qty: 90 3RF Dose Instruction: TAKE 1 TABLET BY MOUTH ONCE DAILY FOR REFLUX Rx Instructions: TAKE 1 TABLET BY MOUTH ONCE DAILY FOR REFLUX ranolazine 500 mg tablet extended release 12 hr 500 mg PO BID Qty: 180 3RF isosorbide mononitrate 30 mg tablet extended release 24 hr 30 mg PO DAILY Qty: 90 3RF Held cyclobenzaprine 5 mg tablet 5 mg PO BID PRN (Reason: muscle spasm) Qty: 20 0RF Hold Instructions: Resume on 06/22/24. Given recent syncopal event would hold this sedative medication and re-discuss with your primary care physician. Rx Instructions: Watch for signs of sedation. metformin 500 mg tablet 500 mg PO BIDCM Qty: 180 3RF Hold Instructions: Resume on 07/26/24. May resume your metformin as long as blood sugars have remained > 140 upon serial checks. If they are lower than this DO NOT restart until review with your primary care physician. Discontinued insulin NPH and regular human 100 unit/mL (70-30) suspension 24 unit SC QHS Humulin 70/30 U-100 Insulin 100 unit/mL (70-30) suspension 34 unit subcut DAILY Referrals / Follow Up: Marie Maciel MD [Primary Care Provider] - (Follow-up within 3-5 days to review admission, re-evaluation BS trending.) Disposition Disposition (needs filled in before D/C Order can be placed): Home, Self Care
[2024-06-16 11:20] VITALS: BMI 39.8
[2024-06-16 11:28] LABS: Bedside Glucose 219 mg/dL (74-106)
== END 2024-06-16 14:23 | disposition home or self-care (01) ==
LOC: ED 06-15 02:06 → PCU 06-15 03:17
PROVIDERS: Admitting Provider Internal Medicine; Emergency Provider Emergency Medicine; PCP Internal Medicine; Visit Provider Family Medicine
DX: I95.1 Orthostatic hypotension (principal); G20.A1 Parkinson's disease without dyskinesia, without mention of fluctuations; I42.9 Cardiomyopathy, unspecified; E11.649 Type 2 diabetes mellitus with hypoglycemia without coma; E11.22 Type 2 diabetes mellitus with diabetic chronic kidney disease; E11.40 Type 2 diabetes mellitus with diabetic neuropathy, unspecified; Z79.4 Long term (current) use of insulin; N18.31 Chronic kidney disease, stage 3a; N17.9 Acute kidney failure, unspecified; Z95.5 Presence of coronary angioplasty implant and graft; E03.9 Hypothyroidism, unspecified; G47.33 Obstructive sleep apnea (adult) (pediatric); E78.5 Hyperlipidemia, unspecified; Z68.39 Body mass index [BMI] 39.0-39.9, adult; Z79.84 Long term (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 of oral hypoglycemic drugs; D50.9 Iron deficiency anemia, unspecified; N40.0 Benign prostatic hyperplasia without lower urinary tract symptoms; I25.10 Atherosclerotic heart disease of native coronary artery without angina pectoris; R47.81 Slurred speech; Z79.02 Long term (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 of antithrombotics/antiplatelets; Z79.890 Hormone replacement therapy; E53.8 Deficiency of other specified B group vitamins; I12.9 Hypertensive chronic kidney disease with stage 1 through stage 4 chronic kidney disease, or unspecified chronic kidney disease; E27.40 Unspecified adrenocortical insufficiency; I45.2 Bifascicular block; F41.9 Anxiety disorder, unspecified; K21.9 Gastro-esophageal reflux disease without esophagitis; Z79.899 Other long term (current) drug therapy; Z79.82 Long term (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 of aspirin; E66.9 Obesity, unspecified; Z87.891 Personal history of nicotine dependence; I69.318 Other symptoms and signs involving cognitive functions following cerebral infarction
CPT/HCPCS: 36415; 70450; 70551; 80048; 80053; 80061; 80307; 82077; 82607; 82746; 82962; 83036; 83735; 84100; 84443; 84484; 85025; 85610; 85730; 93005; 93306; 96360; 96372; 97162; 97166; 97802; 99221; 99285; Q9957; A4216; C8929; G0378

== ENCOUNTER → 2024-06-24 | Outpatient (CLI) | payer MEDICARE, SELFPAY ==
--- NOTE | 2024-06-24 16:05 | RAD_ITS ---
HISTORY: CERVICAL RADICULAR SYMPTOMS. TECHNIQUE: XR Spine Cervical 4 or 5 Views. COMPARISON: 10/05/2022. FINDINGS: VERTEBRAE: Vertebral body heights maintained. No acute fracture identified. ALIGNMENT: Chronic minimal anterolisthesis of C2-3. Chronic mild reversal of the cervical lordosis. INTERVERTEBRAL DISCS: Advanced degenerative endplate changes with intervertebral disc space narrowing of C3-4, C4-5, C5-6, and C6-7. SOFT TISSUES: No significant prevertebral soft tissue swelling. RAD/Cerv Spine 2 or 3 Views IMPRESSION: No acute fracture or dislocation identified in the cervical spine. Multilevel degenerative change. Electronically Signed: Sole Candelario MD at 16:06 EST ,
== END | disposition home or self-care (01) ==
LOC: RAD 15:52
PROVIDERS: PCP Internal Medicine; Referring Provider Clinical Nurse Specialist Adult Health; Visit Provider Clinical Nurse Specialist Adult Health
DX: M54.12 Radiculopathy, cervical region (principal)
CPT/HCPCS: 72040

== ENCOUNTER 2024-11-19 22:47 | Emergency (ER) | payer MEDICARE, SELFPAY ==
[2024-11-19 22:48] VITALS: BP 183/97; PULSE 80; RESP 26; TEMP 36.4; O2SAT 95
[2024-11-19 22:50] VITALS: BP 183/97; PULSE 80; RESP 26; TEMP 36.4; O2SAT 95
[2024-11-19 22:51] VITALS: BMI 39.2
[2024-11-19 23:02] VITALS: O2SAT 94
--- NOTE | 2024-11-19 23:04 | EKG12_ITS ---
Test Reason : SOB Blood Pressure : */* mmHG Vent. Rate : 68 BPM Atrial Rate : 68 BPM P-R Int : 168 ms QRS Dur : 144 ms QT Int : 448 ms P-R-T Axes : 98 -51 74 degrees QTcB Int : 476 ms Normal sinus rhythm Right bundle branch block Left anterior fascicular block Bifascicular block Left ventricular hypertrophy with repolarization abnormality ( R in aVL , Romhilt-Leger ) Abnormal ECG Confirmed by ABIMAEL GUTIÉRREZ, BRAXTON ([id number]), editor sound ONDINA LE ([id number]) on 11/25/2024 7:10:27 AM Referred By: Confirmed By: BRAXTON VARGHESE MD
[2024-11-19] MEDS: 0.9% Normal Saline (500mL Bag) 500 ML 999 ML IV (23:09)
--- OUTSIDE RECORDS SUMMARY | 2024-11-19 23:15 | XMS RPT_ITS | CCD ---
Author Organization [facility] CliniSyri Care Team Providers Care Orthotic And Prosthetic Technician Name Role Phone Saurabh Benites MD Unavailable Dr. Keron Maciel Primary Care Provider Dr. Keron Maciel Referring Provider 1([facility])[phone] Alo PHOTOCOMPOSING KEYBOARD OPERATOR, PHOTOCOMPOSING KEYBOARD OPERATOR-C Glory Attending Provider Dr. Soham Jones III Referring Provider Dr. Americo Nazario Attending Provider 1([facility])[phone] Austin Mora Attending Provider 1([facility])[phone] Dr. Keron Maciel Attending Provider [phone] David Ashton Attending Provider Dr. Keron Maciel Primary Care Provider Dr. Keron Maciel Referring Provider [phone] Alo PHOTOCOMPOSING KEYBOARD OPERATOR, PHOTOCOMPOSING KEYBOARD OPERATOR-C Glory Attending Provider Dr. Keron Maciel Attending Provider [phone] Dr. Keron Maciel Primary Care Provider Dr. Keron Maciel Referring Provider [phone] Hood PHOTOCOMPOSING KEYBOARD OPERATOR, PHOTOCOMPOSING KEYBOARD OPERATOR-C Casey Attending Provider [phone] Keron Maciel Attending Provider [phone] Erick Sung Attending Provider Unavailable Dr. Keron Maciel Primary Care Provider Dr. Keron Maciel Referring Provider [phone] Olga PICKARD, NEERAJ Reza Attending Provider Dr. Keron Maciel Primary Care Provider Dr. Keron Maciel Referring Provider [phone] Whit TERRY, HARRISON-Gladys Vogel Attending Provider Olga PICKARD PA Audelia Reza Attending Provider Dr. Keron Maciel Attending Provider [phone] Keron Maciel Primary Care Provider Dr. Keron Maciel Referring Provider [phone] Keron Maciel Attending Provider [phone] Rich Padgett Attending Provider Dr. Austin oMra Attending Provider Keron Maciel MD Primary Care Provider [phone] Dr. Keron Maciel Primary Care Provider Dr. Keron Maciel Attending Provider [phone] Keron Maciel Referring Provider [phone] Rich Padgett Attending Provider NEERAJ Miguel Attending Provider Keron Maciel MD Primary Care Provider [phone] Keron Maciel Referring Unavailable Bhanu Miguel Attending Unavailable Janell, Keron Primary Care Unavailable Janell, Keron Referring Unavailable Janell, Keron Primary Care Unavailable Lela Sherman NP Attending Unavailable Janell, Keron Referring Unavailable Janell, Keron Primary Care Unavailable Olga PICKARD, Audelia Reza Attending Unavail able JanellKeron sierra Attending Unavailable Janell, Keron Primary Care Unavailable Janell, Keron Attending Unavailable Janell, Keron Referring Unavailable Janell, Keron Primary Care Unavailable Janell, Keron Attending Unavailable Janell, Keron Primary Care Unavailable Janell, Keron Primary Care Unavailable CINTIA RAMON Referring Unavailable CINTIA RAMON Attending Unavailable Amalia Moncada Attending Unavailable Janell, Keron Primary Care Unavailable Neri Arana Consulting Unavailable Neri Arana Admitting Unavailable Janell, Keron Primary Care Unavailable Geo Saeed Referring Unavailable Geo Saeed Attending Unavailable Janell, Keron Referring Unavailable AndrewdoRich moody Attending Unavailable Janell, Keron Primary Care Unavailable Janell, Keron Attending Unavailable Janell, Keron Primary Care Unavailable Baddour, Rich Attending Unavailable Janell, Keron Primary Care Unavailable Janell, Keron Referring Unavailable Janell, Keron Referring Unavailable BaddourRich Attending Unavailable Janell, Keron Primary Care Unavailable Janell, Keron Primary Care Unavailable David Ashton Attending Unavailable Amalia Moncada Attending Unavailable Janell, Keron Primary Care Unavailable Neri Arana Consulting Unavailable Neri Arana Admitting Unavailable Amalia Moncada Consulting Unavailable Neri Arana Attending Unavailable Janell, Keron Primary Care Unavailable Caleb Cristina Attending Unavailable Janell, Keron Primary Care Unavailable Janell, Keron Referring Unavailable JanellKeron Attending Unavailable Joan Serna Referring Unavailable Joan Serna Attending Unavailable Janell, Keron Primary Care Unavailable Janell, Keron Primary Care Unavailable Janell, Keron Referring Unavailable Rich Padgett Attending Unavailable Janell, Keron Attending Unavailable Janell, Keron Primary Care Unavailable Janell, Keron Attending Unavailable Janell, Keron Primary Care Unavailable Janell, Keron Attending Unavailable Janell, Keron Referring Unavailable Janell, Keron Primary Care Unavailable Janell, Keron Primary Care Unavailable Thierno Trevizo Attending Unavailable JanellKeron Attending Unavailable Janell, Keron Primary Care Unavailable Janell, Keron Attending Unavailable Janell, Keron Primary Care Unavailable Janell, Keron Primary Care Unavailable Janell, Keron Attending Unavailable Janell, Keron Primary Care Unavailable Janell, Keron Referring Unavailable Rich Padgett Attending Unavailable TESTRAKE, BARBIE Referring Unavailable JANELL, KERON M Primary Care Unavailable TESTRAKE, BARBIE Attending Unavailable SELF Referring Unavailable JANELL, KERON M Primary Care Unavailable TESTRAKE, BARBIE Attending Unavailable TESTRAKE, BARBIE Referring Unavailable JANELL, KERON M Primary Care Unavailable TESTRAKE, BARBIE Attending Unavailable TESTRAKE, BARBIE Referring Unavailable JANELL, KERON M Primary Care Unavailable TESTRAKE, BARBIE Attending Unavailable Allergies Allergy Classification Reported Allergen(s) Allergy Type Date of Onset Reaction(s) Facility Thiazolidinediones (glitazones) (1 source) pioglitazone Drug Allergy 7 [facility] (4 sources) pioglitazone Drug Allergy 1 Rash & passes out, Rash [facility] Work Phone: (10 sources) Lisinopril Drug Allergy 2 Cough [facility] (10 sources) Losartan Drug Allergy 2 Jitters [facility] (10 sources) Metoprolol Drug Allergy 2 [facility] (17 sources) pioglitazone; Translations: [pioglitazone HCl] Drug Allergy 7 Upset Stomach [facility] (1 source) Lisinopril Drug Allergy 5 [facility] (1 source) Losartan Drug Allergy 5 [facility] (1 source) Metoprolol Drug Allergy 5 [facility] (1 source) Naproxen Drug Allergy 5 [facility] Medications Current Medications Medication Drug Class(es) Dates Sig (Normalized) Sig (Original) acetaminophen 500 mg oral tablet (20 sources) Start: 02-19-2020 take 1000 mg by mouth every six hours as needed Acetaminophen Active 1000 MG PO EVERY 6 HOURS NEEDED February 19, 2020 12:00am Start: 02-10-2020 End: 02-19-2020 take 650 mg by mouth every six hours as needed Acetaminophen Discontinued 650 MG PO EVERY 6 HOURS NEEDED February 12, 2020 12:00am February 19, 2020 9:26pm Start: 06-22-2019 End: 02-12-2020 take 500 mg by mouth every six hours as needed Acetaminophen Discontinued 500 MG PO EVERY 6 HOURS NEEDED June 22, 2019 1:00am February 12, 2020 3:44pm [id number] 200 actuat albuterol 0.09 mg/actuat metered dose inhaler (20 sources) beta2-Adrenergic Agonist Start: 03-13-2021 take 2-4 puff(s) by inhalation every four hours as needed for wheezing albuterol HFA (PROVENTIL HFA, VENTOLIN HFA) 90 mcg/actuation inhaler Inhale 2-4 Puffs as instructed every 4 hours as needed for wheezing/shortness of breath. 8 g 03/13/2021 Active Start: 03-21-2019 End: 07-23-2019 Albuterol Sulfate Discontinu ed 2 INH INHALATION Q4H March 21, 2019 9:21am July 23, 2019 1:59pm Start: 03-21-2019 End: 07-23-2019 take 2.5 mg by inhalation every four hours Albuterol Sulfate Discontinued 2.5 MG INHALATION Q4H March 21, 2019 12:00am July 23, 2019 1:59pm Start: 12-25-2018 End: 03-21-2019 Albuterol Sulfate Discontinu ed INHALATION December 25, 2018 12:00am March 21, 2019 9:21am Start: 12-16-2018 take 2 puff(s) by in halation every four hours as needed albuterol HFA (PROVENTIL HFA, VENTOLIN HFA) 90 mcg/actuation inhaler Indications: Bronchitis Inhale 2 Puffs as instructed every 4 hours as needed. 1 Inhaler 12/16/2018 Active Start: 05-29-2018 End: 10-17-2018 take 1 puff(s) by inhalation every four hours Albuterol Sulfate Discontinued 2 PUFF INHALATION Q4H May 29, 2018 2:32pm October 17, 2018 1:10pm administer with spacer Start: 05-29-2018 End: 10-17-2018 take 1 puff(s) by inhalation every four hours Albuterol Sulfate Discontinued 2 PUFF INHALATION Q4H May 29, 2018 1:00am October 17, 2018 1:10pm administer with spacer Start: 10-15-2015 End: 03-21-2016 VENTOLIN HFA 108 (90 Base) M CG/ACT AERS As needed - 90mcg/inh ALBUTEROL SULFATE [id number] David Ashton MD Comment on above: Inhale 2 Puffs as in structed every 4 hours as needed. Inhale 2-4 Puffs as instructed every 4 hours as needed for wheezing/shortness of breath. amLODIPine 5 mg oral tablet (20 sources) Dihydropyridine Calcium Channel Saul Start: 8 End: 4 take 5 mg by mouth once daily Amlodipine Active 5 MG PO DAILY September 19, 2023 9:22am ascorbic acid 113 mg / beta carotene 7160 mg / cuprous oxide 0.4 mg / dl-alpha tocopheryl acetate 100 unt / zinc oxide 17.4 mg oral tablet (10 sources) Vitamin C Start: 1 take 2 tablets by mouth once daily at dinner Vitamins A,C,A-Kbco-Vmmamm (Preservision Areds) 7,160 unit- 113 mg-100 unit tablet Active 2 TABLET PO DAILY December 17, 2020 12:00am administer with AM and PM meals aspirin 81 mg delayed release oral tablet (20 sources) Nonsteroidal Anti-inflammatory Drug Start: 6 take 81 mg by mouth once daily Aspirin Active 81 MG PO DAILY July 24, 2015 1:00am Start: 07-16-2015 take 1 tablet by britt th once daily ASPIRIN 81 MG TABS One tablet by mouth daily ASPIRIN [id number] Audelia Espinoza PA-C Start: 10-28-2010 End: 06-16-2015 take 1 tablet by mouth once daily ASPIRIN 81 MG TABS One tablet by mouth daily ASPIRIN [id number] David Ashton MD Comment on above: Take 81 mg by mouth once daily. benzonatate 100 mg oral capsule (1 source) Non-narcotic Antitussive Start: 08-10-19 take 200 mg by mouth three times daily Benzonatate Active 200 MG PO THREE TIMES A DAY August 10, 2023 1:00am capsaicin 0.75 mg/ml topical cream (6 sources) Start: 04-24-20 capsaicin (ZOSTRIX-HP) 0.075 % topical cream Apply 1 application to affected area three times daily as needed (pain). 30 g 2 04/24/2019 Active Comment on above: Apply 1 application to affected area three times daily as needed (pain). carbidopa 25 mg / levodopa 100 mg oral tablet (20 sources) Aromatic Amino Acid Decarboxylation Inhibitor, Aromatic Amino Acid Start: 07-13-19 End: 07-27-19 24 take 2 tablets by mouth once daily in the morning, then take 1 tablet by mouth once, then take 2 tablets by mouth once daily Carbidopa-Levodopa (Sinemet) 25-100 mg tablet Active 0 .ROUTE .COMPLEX 150 July 27, 2023 3:55pm Take 2 tabs orally every morning, 1 tab every mid-day, and 2 tabs every night Start: 02-25-2021 End: 07-13-2021 take 1 tablet by mouth three times daily Carbidopa-Levodopa (Sinemet) 25-100 mg tablet Discontinued 1 TABLET PO THREE TIMES A DAY February 25, 2021 2:02pm July 13, 2021 11:51am Start: 12-17-2020 End: 02-25-2021 take 1 tablet by mouth twice daily Carbidopa-Levodopa (Sinemet) 25-100 mg tablet Discontinued 1 TABLET PO TWICE A DAY 60 December 17, 2020 12:00am February 25, 2021 2:02pm Start: 07-21-2020 End: 12-17-2020 take 1 tablet by mouth twice daily Carbidopa-Levodopa Discontinued 1 TABLET PO TWICE A DAY July 21, 2020 1:00am December 17, 2020 9:52pm Start: 07-20-2020 take 1 tablet by britt th twice daily carbidopa-levodopa (SINEMET) 10-100 mg per tablet Indications: Parkinson's disease (HCC) Take 1 tablet by mouth twice daily. 180 tablet 3 07/20/2020 Active Comment on above: Take 1 tablet by britt th twice daily. cholecalciferol 0.125 mg oral capsule (20 sources) Vitamin D Start: 6 take 5000 [IU] by mouth once daily Cholecalciferol (Vitamin D3) Active 5000 UNIT PO DAILY June 29, 2015 1:00am Start: 01-05-2014 End: 01-23-2014 take 2000 [IU] by mouth once daily Cholecalciferol (Vitamin D3) Discontinued 2000 UNIT PO DAILY January 05, 2014 12:00am January 23, 2014 12:11pm take 1 tablet by britt th once daily Cholecalciferol, Vitamin D3, (VITAMIN D-3) 2,000 unit cap Take 1 tablet by mouth once daily. 125 mcg Active Comment on above: Take 1 tablet by britt th once daily. clopidogrel 75 mg oral tablet (20 sources) P2Y12 Platelet Inhibitor Start: End: take 1 tablet by mouth once daily clopidogrel (PLAVIX) 75 mg tablet Indications: Hyperlipidemia with target LDL less than 100 Take 1 tablet by mouth once daily. 90 tablet 3 09/17/2020 Active Comment on above: Take 1 tablet by britt th once daily. dextromethorphan hydrobromide 2 mg/ml / guaiFENesin 40 mg/ml oral suspension (1 source) Uncompetitive O-oehjrh-U-aspartate Receptor Antagonist, Sigma-1 Agonist Start: take 1 mL by mouth every eight hours Dextromethorphan-Guai fenesin (Adult Wal-Tussin Dm Max) 10-200 mg/5 mL liquid Active 10 ML PO Q8H August 10, 2023 1:00am escitalopram 10 mg oral tablet (20 sources) Serotonin Reuptake Inhibitor Start: escitalopram oxalate (LEXAPRO) 10 mg tablet 06/01/2024 Active Start: 03-23-2022 End: 03-08-2023 Escitalopram Oxalate Active 10 MG PO DAILY March 08, 2023 11:38am Take 1/2 tablet for 4 days then increase to 1 tablet. Start: 12-11-2020 End: 03-23-2022 Escitalopram Oxalate Discont inued 5 MG PO DAILY January 19, 2022 10:59am March 23, 2022 5:26pm Take 1/2 tablet for 4 days then increase to 1 tablet. finasteride 5 mg oral tablet (20 sources) 5-alpha Reductase Inhibitor Start: 05-29-2014 End: 05-31-2016 take 5 mg by mouth once daily Finasteride Active 5 MG PO DAILY June 29, 2015 1:00am Comment on above: Take 5 mg by mouth o nce daily. fludrocortisone acetate 0.1 mg oral tablet (2 sources) Start: 04-29-2024 fludrocortisone (FLORINEF) 0.1 mg tablet Take 0.1 mg by mouth. 04/29/2024 Active furosemide 40 mg oral tablet (20 sources) Loop Diuretic Start: 08-31-2015 End: 02-28-2023 take 40 mg by mouth once daily Furosemide Active 40 MG PO DAILY February 28, 2023 8:47am Start: 08-31-2015 FUROSEMIDE 40 MG TABS One tablet by mouth twice daily X 3 days then once daily FUROSEMIDE [id number] Estrella August RN Start: 08-06-2015 End: 08-27-2015 take 1 tablet by mouth once daily LASIX 40 MG TABS One tablet by mouth daily FUROSEMIDE [id number] Audelia Espinoza PA-C Start: 02-25-2011 End: 06-21-2012 take 1 tablet by mouth once daily LASIX 40 MG TABS One tablet by mouth daily FUROSEMIDE [id number] David Ashton MD Comment on above: Take 40 mg by mouth once daily. Handicap Paccard (10 sources) Start: 01-18-[address] Active 0 .Route .MEDSUPPLY January 18, 2021 2:15pm Duration: Lifetime (5 yrs): CAD, debility Start: 01-18-2021 End: 10-18-2022 Handicap Paccard Discontinue d 0 .Route .MEDSUPPLY January 18, 2021 12:00am October 18, 2022 1:51pm Duration: Lifetime (5 yrs): CAD, debility Start: 01-18-[address] Active 0 .Route .MEDSUPPLY January 18, 2021 12:00am Duration: Lifetime (5 yrs): CAD, debility hydroCHLOROthiazide 12.5 mg oral capsule (6 sources) Thiazide Diuretic Start: 10-28-2019 take 1 capsule by mouth once daily Hydrochlorothiazide 12.5 mg capsule Take 1 capsule by mouth once daily. 30 capsule 12 10/28/2019 Active Comment on above: Take 1 capsule by mo [facility] once daily. 24 hr isosorbide mononitrate 30 mg extended release oral tablet (20 sources) Nitrate Vasodilator Start: 04-19-2018 End: 04-12-2023 take 1 tablet by mouth once daily isosorbide mononitrate ER (IMDUR) 30 mg 24 hr tablet Take 1 tablet by mouth once daily. 90 tablet 3 09/17/2020 Active Comment on above: Take 1 tablet by britt once daily. losartan potassium 100 mg oral tablet (20 sources) Angiotensin 2 Receptor Saul Start: 07-21-2020 End: 01-23-2023 take 1 tablet by mouth once daily losartan (COZAAR) 100 mg tablet Take 1 tablet by mouth once daily. 90 tablet 3 09/17/2020 Active Start: 08-31-2018 End: 09-07-2018 take 25 mg by mouth once daily Losartan Discontinued 2 5 MG PO daily 45 August 31, 2018 4:16pm September 07, 2018 2:05pm Start: 05-20-2017 End: 08-31-2018 take 50 mg by mouth once daily Losartan Discontinued 5 0 MG PO daily 90 August 31, 2018 8:33am August 31, 2018 4:17pm Start: 02-23-2017 take 1 tablet by britt once daily LOSARTAN POTASSIUM 50 MG TABS One tablet by mouth daily LOSARTAN POTASSIUM [id number] David Ashton MD Comment on above: Take 1 tablet by britt once daily. MEDICATION, NON-DATABASE (5 sources) MEDICATION, NON- DATABASE Zinc 50 mg Active MEDICATION, NON- DATABASE Zinc/vitamin C daily Active metFORMIN hydrochloride 1000 mg oral tablet (20 sources) Biguanide Start: 09-22-2023 End: 09-25-2023 take 500 mg by mouth twice daily at mealtime Metformin Active 500 MG PO TWICE DAILY WITH MEALS 180 September 25, 2023 2:43pm Start: 12-14-2020 End: 09-22-2023 take 1000 mg by mouth twice daily at mealtime Metformin Discontinued 1000 MG PO TWICE DAILY WITH MEALS 180 December 26, 2022 12:22pm September 22, 2023 1:15pm Start: 01-05-2014 End: 12-14-2020 take 1000 mg by mouth twice daily at mealtime Metformin Discontinued 1000 MG PO TWICE DAILY WITH MEALS January 05, 2014 12:00am December 14, 2020 1:46pm Start: 06-25-2013 take 2 tablets by [facility] twice daily at mealtime metFORMIN (GLUCOPHAGE) 500 mg tablet Take 2 tablets by mouth twice daily with meals. 01/28/2014 Active Start: 06-25-2013 take 1 tablet by britt three times daily METFORMIN HCL 500 MG TABS One tablet by mouth three times daily METFORMIN HCL [id number] David Ashton MD Comment on above: Take 2 tablets by mo [facility] twice daily with meals. insulin isophane, human 70 unt/ml / insulin, regular, human 30 unt/ml injectable suspension (20 sources) Insulin Start: 03-14-2023 Insulin Nph And Regular Human Active 50 UNIT SC TWICE A DAY March 14, 2023 1:51pm 34 units in the AM 28 units in the PM and sliding scale Start: 12-17-2020 End: 03-14-2023 Insulin Nph And Regular Suze n Discontinued 50 UNIT SC TWICE A DAY December 17, 2020 10:27am March 14, 2023 1:52pm 50 units in the AM 36 units in the PM and sliding scale Start: 09-17-2020 inject 48 [IU] by [facility] bcutaneous injection before mealtime, then inject 40 [IU] by subcutaneous injection before mealtime insulin NPH-insulin regular injection (HumuLIN, NovoLIN 70/30) 48 units SQ ac breakfast and 40 units SQ ac supper 0 09/17/2020 Active Start: 10-17-2018 End: 10-12-2020 Insulin Nph And Regular Suze n Discontinued 40 UNIT SC WITH DINNER October 17, 2018 1:09pm October 12, 2020 1:15pm Start: 06-29-2015 End: 10-17-2018 Insulin Nph And Regular Suze n Discontinued 36 UNITS SC WITH DINNER June 29, 2015 1:00am October 17, 2018 1:10pm Start: 06-29-2015 End: 12-17-2020 Insulin Nph And Regular Suze n Discontinued 50 UNIT SC WITH BREAKFAST October 12, 2020 1:13pm December 17, 2020 10:28am 50 units in the AM 36 units in the PM and sliding scale Start: 05-29-2014 take 50 [IU] by subc utaneous injection in the morning, then take 36 [IU] by subcutaneous injection in the evening NOVOLIN 70/30 (70-30) 100 UNIT/ML SUSP 50 units sq in the am and 36 units sq in the pm INSULIN ISOPHANE & REGULAR [id number] David Ashton MD Start: 05-29-2014 take 35 [IU] by subc utaneous injection in the morning, then take 25 [IU] by subcutaneous injection in the evening NOVOLIN 70/30 (70-30) 100 UNIT/ML SUSP 35 units sq in the am and 25 units sq in the pm INSULIN ISOPHANE & REGULAR [id number] David Ashton MD Comment on above: 48 units SQ ac break fast and 40 units SQ ac supper pantoprazole 40 mg delayed release oral tablet (20 sources) Proton Pump Inhibitor Start: 06-16-20 End: 03-15-20 take 1 tablet by mouth once daily pantoprazole DR (PROTONIX) 40 mg tablet Indications: Gastroesophageal reflux disease without esophagitis Take 1 tablet by mouth once daily. 90 tablet 3 09/17/2020 Active Start: 10-28-2010 End: 12-04-2014 take 1 tablet by mouth once daily PROTONIX 40 MG (PANTOPRAZOLE SODIUM) One tablet by mouth daily PROTONIX 40 MG (PANTOPRAZOLE SODIUM) Audelia Espinoza PA-C Comment on above: Take 1 tablet by britt once daily. Pen Needle, Diabetic (20 sources) Start: 12-25-2020 Pen Needle, Diabetic Active 0 .ROUTE .MEDSUPPLY 100 December 25, 2020 10:38am As directed Start: 12-25-2020 End: 12-25-2020 Pen Needle, Diabetic Discont inued 0 .ROUTE .MEDSUPPLY 50 December 25, 2020 10:34am December 25, 2020 10:38am As directed Start: 12-25-2020 End: 12-25-2020 Pen Needle, Diabetic Discont inued 0 .ROUTE .MEDSUPPLY 50 December 25, 2020 12:00am December 25, 2020 10:38am As directed pravastatin sodium 20 mg oral tablet (20 sources) HMG-CoA Reductase Inhibitor Start: 06-21-2013 End: 10-12-2022 take 1 tablet by mouth once daily pravastatin (PRAVACHOL) 20 mg tablet Take 1 tablet by mouth once daily. 90 tablet 3 09/17/2020 Active Comment on above: Take 1 tablet by britt th once daily. predniSONE 10 mg oral tablet (10 sources) Corticosteroid Start: 03-13-2021 predniSONE (DELTASONE) 10 mg tablet Take 4 tabs daily for 3 days, then 2 tabs daily for 3 days, then 1 tab daily for 3 days with food. 21 tablet 03/13/2021 Active Start: 12-09-2016 End: 01-20-2017 take 4 tablets by mouth once daily, then take 3 tablets by mouth, then take 2 tablets by mouth, then take 1 tablet by mouth PREDNISONE 10 MG TABS Take 4 tablets by mouth once daily for 3 days, then 3 for 3 days, then 2 for 3 days, then 1 for 3 days. PREDNISONE [id number] Lela Sherman [facility] Comment on above: Take 4 tabs daily fo r 3 days, then 2 tabs daily for 3 days, then 1 tab daily for 3 days with food. 12 hr ranolazine 500 mg extended release oral tablet (12 sources) Anti-anginal Start: 05-20-2024 take 1 tablet by mouth every twelve hours ranolazine ER (RANEXA) 500 mg 12 hr tablet Take 1 tablet by mouth every 12 hours. 05/20/2024 Active Start: 02-25-2022 End: 03-06-2023 take 500 mg by mouth twice daily Ranolazine Active 500 MG PO TWICE A DAY March 06, 2023 8:31am tamsulosin hydrochloride 0.4 mg oral capsule (20 sources) alpha-Adrenergic Saul Start: 09-17-2020 take 1 capsule by mouth once daily at bedtime tamsulosin (FLOMAX) 0.4 mg Indications: Renal colic on left side Take 1 capsule by mouth daily at bedtime. 90 capsule 3 09/17/2020 Active Start: 10-28-2010 End: 06-16-2015 take 0.4 mg by mouth once daily Tamsulosin Discontinued 0.4 MG PO DAILY January 05, 2014 12:00am January 23, 2014 12:11pm Comment on above: Take 1 capsule by [facility] daily at bedtime. levothyroxine sodium 0.05 mg oral tablet (20 sources) l-Thyroxine Start: 1 End: 3 take 1 tablet by mouth once daily levothyroxine (SYNTHROID) 50 mcg tablet Indications: Hypothyroidism, unspecified type Take 1 tablet by mouth once daily. 90 tablet 3 09/17/2020 Active Comment on above: Take 1 tablet by [facility] once daily. traZODone hydrochloride 50 mg oral tablet (8 sources) Serotonin Reuptake Inhibitor Start: 2 End: 4 take 25 mg by mouth at bedtime Trazodone Active 25 MG PO AT BEDTIME July 24, 2023 4:01pm vit A/vit C/vit E/zinc/copper (PRESERVISION AREDS ORAL) (6 sources) take 1 tablet by mouth once daily vit A/vit C/vit E/zinc/copper (PRESERVISION AREDS ORAL) Take 1 tablet by mouth once daily. Active take 1 tablet by mouth once neeraj y vit A/vit C/vit E/zinc/copper (PRESERVISION AREDS ORAL) Take 1 tablet by mouth once daily. 0 Active Comment on above: Take 1 tablet by britt th once daily. Completed/Discontinued Medications Medication Drug Class(es) Dates Sig (Normalized) Sig (Original) acetaminophen 325 mg / HYDROcodone bitartrate 5 mg oral tablet (20 sources) Opioid Agonist Start: 02-28-2020 End: 03-02-2020 take 1 tablet by mouth every six hours as needed Hydrocodone-Acetami nophen Discontinued 1 TABLET PO EVERY 6 HOURS NEEDED 05 21February 28, 2020 March 02, 2020 12:02am Start: 02-04-2020 End: 02-07-2020 take 1 tablet by mouth every six hours as needed Hydrocodone-Acetaminophen Discontinued 1 TABLET PO EVERY 6 HOURS NEEDED 03 21February 04, 2020 February 07, 2020 12:02am Start: 01-08-2018 End: 04-19-2018 Hydrocodone-Acetaminophen Di scontinued 1 - 2 EACH PO 4 TIMES DAILY NEEDED 12 January 08, 2018 12:00am April 19, 2018 2:03pm Start: 05-20-2016 End: 05-31-2016 take 1 tablet by mouth once daily as needed NORCO 5-325 MG TABS One tablet by mouth daily as needed HYDROCODONE-ACETAMINOPHEN [id number] Juliann Levine LPN amoxicillin 500 mg oral capsule (1 source) Penicillin-class Antibacterial Start: 01-23-2023 End: 02-02-2023 take 500 mg by mouth three times daily Amoxicillin Discontinued 500 MG PO THREE TIMES A DAY 17 04January 23, 2023 12:00am February 02, 2023 12:03am Arm Brace (Wrist Brace) misc (10 sources) Start: 11-19-2020 End: 01-18-2021 Arm Brace (Wrist Brace) misc Discontinued 0 .ROUTE .MEDSUPPLY November 19, 2020 1:55pm January 18, 2021 1:38pm As directed Start: 11-19-2020 End: 01-18-2021 Arm Brace (Wrist Brace) misc Discontinued 0 .ROUTE .MEDSUPPLY 1 November 19, 2020 12:00am January 18, 2021 1:38pm As directed atorvastatin 20 mg oral tablet (4 sources) HMG-CoA Reductase Inhibitor Start: 06-21-2013 take 1 tablet by mouth once daily LIPITOR 20 MG TABS One tablet by mouth daily ATORVASTATIN CALCIUM [id number] Ania Sheridan RN Start: 10-28-2010 take 1 tablet by britt th once daily LIPITOR 10 MG TABS One tablet by mouth daily ATORVASTATIN CALCIUM [id number] Paula Bazzi azithromycin 250 mg oral tablet (4 sources) Macrolide Antimicrobial Start: 12-07-2016 End: 01-20-2017 AZITHROMYCIN 250 MG TABS 2 tablets by mouth today and then 1 tablet daily for the next 4 days AZITHROMYCIN [id number] Audelia Espinoza PA-C betamethasone 0.5 mg/ml / clotrimazole 10 mg/ml topical cream (10 sources) Azole Antifungal, Corticosteroid Start: 10-13-2021 End: 10-23-2021 Clotrimazole-Beta methasone Discontinued 1 APPLIC TOPICAL TWICE A DAY 45 October 13, 2021 12:00am October 23, 2021 12:06am 120 actuat budesonide 0.08 mg/actuat / formoterol fumarate 0.0045 mg/actuat metered dose inhaler (4 sources) Corticosteroid, beta2-Adrenergic Agonist Start: 02-09-2016 End: 03-21-2016 SYMBICORT 80-4.5 MCG/ACT AERO Take 2 puffs twice daily BUDESONIDE-FORMOT FALGUNI FUMARATE [id number] Americo Nazario DO 12 hr chlorpheniramine polistirex 1.6 mg/ml / HYDROcodone polistirex 2 mg/ml extended release suspension (4 sources) Histamine-1 Receptor Antagonist, Opioid Agonist Start: 12-07-2016 End: 01-20-2017 take 5 mL by mouth every twelve hours TUSSIONEX PENNKINETIC ER 10-8 MG/5ML SUER 1 tsp q12h as needed HYDROCOD POLST-CHLORPHEN POLST [id number] Audeila Espinoza PA-C GLUCOSAMINE-CHONDROITI N CAPS (4 sources) Start: 02-25-2011 take 2 tablets by mouth once daily GLUCOSAMINE-CHOND ROITIN CAPS Two tablets by mouth daily GLUCOSAMINE-CHOND ROITIN CAPS [id number] Paula Bazzi Start: 02-25-2011 End: 06-23-2011 take 2 tablets by mouth once daily GLUCOSAMINE-CHONDROITIN CAPS Two tablets by mouth daily GLUCOSAMINE-CHONDROITIN CAPS [id number] Estrella August RN citalopram 10 mg oral tablet (20 sources) Serotonin Reuptake Inhibitor Start: 07-21-2020 End: 12-11-2020 take 10 mg by mouth three times daily Citalopram Discontinued 10 MG PO THREE TIMES A DAY July 21, 2020 2:09pm December 11, 2020 11:10am Start: 07-23-2019 End: 07-21-2020 take 1 tablet by mouth once daily citalopram hydrobromide (CELEXA) 10 mg tablet Indications: Chronic anxiety Take 1 tablet by mouth once daily. 90 tablet 1 06/22/2020 Active Comment on above: Take 1 tablet by [facility] once daily. dapagliflozin 5 mg oral tablet (10 sources) Sodium-Glucose Cotransporter 2 Inhibitor Start: 04-12-20 End: 05-04-20 take 1 tablet by mouth once daily Dapagliflozin Propanediol (Farxiga) 5 mg tablet Discontinued 5 MG PO DAILY 90 April 12, 2021 12:00am May 04, 2021 10:00am docusate sodium 50 mg / sennosides, detention 8.6 mg oral tablet (10 sources) Start: 02-12-20 End: 02-19-20 take 2 tablets by mouth twice daily as needed Sennosides-Docusate Sodium Discontinued 2 TABLET PO TWICE DAILY NEEDED February 12, 2020 12:00am February 19, 2020 9:26pm doxycycline monohydrate 100 mg oral capsule (10 sources) Tetracycline-class Drug Start: 07-23-19 End: 09-27-19 Doxycycline Monohydrate Discontinued PO July 23, 2019 1:00am September 27, 2019 11:09am dutasteride 0.5 mg oral capsule (2 sources) 5-alpha Reductase Inhibitor Start: 05-29-20 take 1 tablet by mouth once daily AVODART 0.5 MG CAPS One tablet by mouth daily DUTASTERIDE [id number] David Ashton MD ferrous sulfate 325 mg oral tablet (20 sources) Start: 02-26-20 End: 09-29-19 23 take 1 tablet by mouth once daily Ferrous Sulfate (Feosol) 325 mg (65 mg iron) tablet Discontinued 325 MG PO DAILY February 25, 2022 1:45pm September 28, 2022 2:38pm Start: 02-17-2022 End: 02-25-2022 take 1 tablet by mouth every other day Ferrous Sulfate (Feosol) 325 mg (65 mg iron) tablet Discontinued 325 MG PO .COMPLEX February 17, 2022 12:00am February 25, 2022 1:46pm 325 mg orally every other day; Start: 02-12-2020 End: 02-19-2020 take 325 mg by mouth twice daily Ferrous Sulfate Discontinued 325 MG PO BID@1200,1700 February 12, 2020 5:03pm February 19, 2020 9:27pm Start: 05-19-2016 End: 05-31-2016 take 1 tablet by mouth twice daily FERROUS SULFATE 325 (65 Fe) MG TABS One tablet by mouth twice daily FERROUS SULFATE [id number] Juliann Levine STRIPE MARKER 60 actuat fluticasone propionate 0.23 mg/actuat / salmeterol 0.021 mg/actuat metered dose inhaler (16 sources) Corticosteroid, beta2-Adrenergic Agonist Start: 02-08-2016 End: 02-08-2016 ADVAIR DISKUS 250-50 MCG/DOSE AEPB Take 2 puffs every 12 hours FLUTICASONE-SALMETEROL [id number] Americo Nazario DO Start: 02-08-2016 End: 03-21-2016 ADVAIR HFA 230-21 MCG/ACT AE RO Take 1 puff twice daily FLUTICASONE-SALMETEROL [id number] Americo Nazario DO Start: 02-08-2016 End: 02-08-2016 ADVAIR HFA 230-21 MCG/ACT AE RO 2 puffs twice daily FLUTICASONE-SALMETEROL [id number] Americo Nazario DO Start: 10-15-2015 End: 02-08-2016 ADVAIR DISKUS 100-50 MCG/DOS E AEPB Take as Directed FLUTICASONE-SALMETEROL [id number] Americo Nazario DO glimepiride 2 mg oral tablet (2 sources) Sulfonylurea Start: 06-25-2013 take 1 tablet by mouth twice daily GLIMEPIRIDE 2 MG TABS One tablet by mouth twice daily GLIMEPIRIDE [id number] David Ashton MD glipiZIDE 5 mg oral tablet (4 sources) Sulfonylurea Start: 06-25-2013 End: 06-16-2015 take 1 tablet by mouth once daily GLIPIZIDE 5 MG TABS One tablet by mouth daily GLIPIZIDE [id number] Audelia Espinoza PA-C Handi cap Placard (20 sources) Start: 10-14-2020 Handi cap Plac sigrid Active 0 .Route .MEDSUPPLY 1 October 14, 2020 2:29pm difficulty walking short distance. expires in 5 years Start: 10-14-2020 End: 10-14-2020 Handi cap Placard Discontinu ed 0 .Route .MEDSUPPLY 1 October 14, 2020 1:21pm October 14, 2020 2:30pm difficulty walking short distance. expires in 5 years Start: 10-14-2020 End: 10-14-2020 Handi cap Placard Discontinu ed 0 .Route .MEDSUPPLY October 14, 2020 12:00am October 14, 2020 2:30pm difficulty walking short distance. expires in 5 years HANDICAP PLACARD (2 sources) Start: 08-27-[address] Lifetime duration DX: CAD HANDICAP JOSE Espinoza PA-C insulin detemir 100 unt/ml injectable solution (2 sources) Insulin Analogue Start: 05-29-2014 LEVEMIR 100 UNIT/ML SOLN Take as directed INSULIN DETEMIR [id number] David Ashton MD insulin glargine 100 unt/ml injectable solution (4 sources) Insulin Analogue Start: 10-28-2010 End: 06-21-2012 take 30 [IU] by subcutaneous injection at bedtime LANTUS 100 UNIT/ML SOLN 30 units SQ at bedtime INSULIN GLARGINE [id number] Paulazen Bazzi 3 ml insulin lispro 100 unt/ml pen injector (14 sources) Insulin Analogue Start: 02-10-2020 End: 02-19-2020 Insulin Lispro Discontinued 0 UNIT SQ 3 TIMES DAILY WITH MEALS February 10, 2020 12:00am February 19, 2020 9:27pm Start: 10-28-2010 End: 06-21-2012 HUMALOG 100 UNIT/ML SOLN SQ per sliding scale INSULIN LISPRO (HUMAN) [id number] Paula Libia Rose Mary INSULIN GLULISINE SOLN (6 sources) Insulin Analogue Start: 06-21-2012 APIDRA SOLN P er sliding scale twice daily if blood glucose is greater than 140 INSULIN GLULISINE SOLN [id number] David Ashton MD Start: 06-21-2012 End: 06-25-2013 APIDRA SOLN Per sliding scal e twice daily if blood glucose is greater than 140 INSULIN GLULISINE SOLN [id number] David Ashton MD Start: 02-25-2011 APIDRA SOLN Pe r sliding scale INSULIN GLULISINE SOLN [id number] Paula M Rose Mary lisinopril 10 mg oral tablet (6 sources) Angiotensin Converting Enzyme Inhibitor Start: 05-29-2014 End: 02-23-2017 take 1 tablet by mouth once daily LISINOPRIL 10 MG TABS One tablet by mouth daily LISINOPRIL [id number] David Ashton MD loratadine 10 mg oral capsule (10 sources) Start: 03-21-2019 End: 03-22-2019 take 10 mg by mouth once daily Loratadine Discontinued 10 MG PO daily March 21, 2019 12:00am March 22, 2019 2:09pm magnesium hydroxide 80 mg/ml oral suspension (10 sources) Start: 02-12-2020 End: 02-19-2020 take 1 mL by mouth once daily as needed Magnesium Hydroxide Discontinued 30 ML PO DAILY NEEDED February 12, 2020 12:00am February 19, 2020 9:27pm magnesium oxide 400 mg oral tablet (4 sources) Start: 06-21-2012 End: 06-25-2013 take 1 tablet by mouth three times daily MAGNESIUM OXIDE 400 MG TABS One tablet by mouth three times daily MAGNESIUM OXIDE [id number] David Ashton MD melatonin 10 mg sublingual tablet (10 sources) Start: 02-19-2020 End: 01-18-2021 take 10 mg by mouth at bedtime Melatonin Discontinued 10 MG PO AT BEDTIME February 19, 2020 12:00am January 18, 2021 1:39pm meloxicam 15 mg oral tablet (10 sources) Nonsteroidal Anti-inflammatory Drug Start: 05-14-2018 End: 06-13-2018 take 7.5 mg by mouth twice daily Meloxicam Discontinued 7.5 MG PO TWICE A DAY May 14, 2018 1:00am June 13, 2018 10:55am metoprolol tartrate 25 mg oral tablet (8 sources) beta-Adrenergic Saul Start: 07-02-2015 End: 10-15-2015 take 0.5 tablet by mouth once daily METOPROLOL TARTRATE 25 MG TABS 1/2 tablet by mouth daily HOLD METOPROLOL TARTRATE [id number] David Ashton MD Start: 07-02-2015 take 0.5 tablet by m outh twice daily METOPROLOL TARTRATE 25 MG TABS 1/2 tablet by mouth twice daily METOPROLOL TARTRATE [id number] Estrella August RN naproxen 500 mg oral tablet (20 sources) Nonsteroidal Anti-inflammatory Drug Start: 04-19-2018 End: 06-13-2018 take 500 mg by mouth twice daily Naproxen Discontinued 500 MG PO TWICE A DAY April 19, 2018 12:00am June 13, 2018 10:56am Start: 03-11-2016 End: 09-06-2017 take 440 mg by mouth twice daily Naproxen Sodium Discontinued 440 MG PO TWICE A DAY March 11, 2016 12:00am September 06, 2017 1:34pm Start: 06-25-2013 take 2 tablets by mo [facility] once daily ALEVE 220 MG TABS Two tablets by mouth daily NAPROXEN SODIUM [id number] David Ashton MD Start: 06-21-2012 take 1 tablet by britt twice daily NAPROSYN 500 MG TABS One tablet by mouth twice daily NAPROXEN [id number] David Ashton MD Start: 10-28-2010 ALEVE 220 MG T ABS PRN NAPROXEN SODIUM [id number] David Ashton MD oxyCODONE hydrochloride 5 mg oral tablet (20 sources) Opioid Agonist Start: 02-10-2020 End: 02-19-2020 take 5 mg by mouth every four hours as needed Oxycodone Discontinued 5 MG PO EVERY 4 HOURS NEEDED 18 February 19, 2020 February 19, 2020 9:26pm Start: 01-05-2014 End: 01-23-2014 take 5-10 mg by mouth every four hours as needed Oxycodone Discontinued 5 - 10 MG PO EVERY 4 HOURS NEEDED January 05, 2014 12:00am January 23, 2014 12:12pm polysaccharide iron complex 150 mg oral capsule (10 sources) Start: 02-19-2020 End: 07-21-2020 take 150 mg by mouth twice daily at mealtime Polysaccharide Iron Complex Discontinued 150 MG PO TWICE DAILY WITH MEALS 60 February 19, 2020 12:00am July 21, 2020 2:13pm potassium,chelated 99 mg oral tablet (8 sources) Start: 05-29-2014 End: 06-16-2015 take 1 tablet by mouth once daily as needed POTASSIUM 99 MG TABS One tablet by mouth daily as needed POTASSIUM [id number] David Ashton MD Start: 02-25-2011 End: 06-21-2012 take 2 tablets by mouth once daily POTASSIUM 99 MG TABS Two tablets by mouth daily POTASSIUM [id number] Paula Bazzi psyllium 3400 mg powder for oral suspension (10 sources) Start: 02-12-2020 End: 02-19-2020 Psyllium Husk (Aspartame) Discontinued 1 PACKET PO DAILY NEEDED February 12, 2020 12:00am February 19, 2020 9:27pm sennosides, detention 8.6 mg oral tablet (10 sources) Start: 02-10-2020 End: 02-12-2020 take 2 tablets by mouth once daily as needed Sennosides Discontinued 2 TABLET PO DAILY NEEDED February 10, 2020 12:00am February 12, 2020 3:44pm traMADol hydrochloride 50 mg oral tablet (11 sources) Opioid Agonist Start: 07-24-2023 End: 08-23-2023 take 50 mg by mouth every twelve hours Tramadol Discontinued 50 MG PO Q12H 30 30 July 24, 2023 4:02pm August 23, 2023 1:06am Start: 02-19-2020 End: 02-26-2020 take 50 mg by mouth every six hours as needed Tramadol Discontinued 50 MG PO EVERY 6 HOURS NEEDED 28 7 February 19, 2020 12:00am February 26, 2020 12:02am valsartan 80 mg oral tablet (4 sources) Angiotensin 2 Receptor Saul Start: 10-28-2010 End: 05-29-2014 take 1 tablet by mouth once daily DIOVAN 80 MG TABS One tablet by mouth daily VALSARTAN [id number] Paula Bazzi vitamin b12 1 mg/ml injectable solution (5 sources) Vitamin B12 Start: 01-18-2021 End: 01-18-2021 inject 1000 ug by intramuscular injection once cyanocobalamin (vitamin B-12) 1,000 mcg/mL injection solution Discontinued 1000 MCG IM ONCE 1 January 18, 2021 2:57pm January 18, 2021 3:07pm take 1 tablet by mouth once neeraj y cyanocobalamin (VITAMIN B-12) 1,000 mcg tab Take 1,000 mcg by mouth once daily. Active vitamin d 1000 unt oral tablet (4 sources) Start: 10-28-2010 take 1 tablet by mouth twice daily VITAMIN D 1000 UNIT TABS One tablet by mouth twice daily CHOLECALCIFEROL [id number] Paula Bazzi Start: 10-28-2010 take 5 tablets by mouth once V ITAMIN D 1000 UNIT TABS 5000 IU One tablet by mouth daily CHOLECALCIFEROL [id number] David Ashton MD Problems Active Problems Problem Classification Problem Date Documented Date Episodic/Chronic Acute bronchitis (2 sources) Acute bronchitis; Translations: [Acute bronchitis, unspecified] 08-11-2023 Episodic Anxiety disorders (20 sources) Anxiety; Translations: [Anxiety disorder, unspecified] Onset: 06-28-2019 12-17-2020 Chronic Calculus of urinary tract (6 sources) Kidney stone; Translations: [Calculus of kidney] 02-24-2005 Episodic Cardiac dysrhythmias (13 sources) Ventricular premature beats; Translations: [Ventricular premature depolarization] 02-04-2020 Chronic Cardiac dysrhythmias (12 sources) Palpitations; Translations: [Palpitations] Onset: 05-29-2014 05-29-2014 Episodic Chronic kidney disease (20 sources) Chronic kidney disease stage 3; Translations: [Stage 3 chronic kidney disease] Onset: 03-07-2024 Chronic Complications of surgical procedures or medical care (4 sources) Insulin lipohypertrophy; Translations: [Other complications following infusion, transfusion and therapeutic injection, initial encounter] 04-21-2022 Episodic Conduction disorders (13 sources) Right bundle branch block AND left anterior fascicular block; Translations: [Bifascicular block] Onset: 06-17-2024 Chronic Coronary atherosclerosis and other heart disease (20 sources) Coronary arteriosclerosis; Translations: [Atherosclerotic heart disease of [place] coronary artery without angina pectoris] Onset: 10-28-2010 Resolved: 07-02-2015 07-02-2015 Chronic Coronary atherosclerosis and other heart disease (14 sources) Presence of coronary angioplasty implant and graft; Translations: [Percutaneous transluminal coronary angioplasty status] Onset: 07-01-2015 08-06-2015 Episodic Deficiency and other anemia (4 sources) Iron deficiency anemia due to blood loss; Translations: [Iron deficiency anemia secondary to blood loss (chronic)] Onset: 04-15-2016 Resolved: 04-15-2016 04-15-2016 Chronic Deficiency and other anemia (10 sources) Iron deficiency anemia; Translations: [Iron deficiency anemia, unspecified] 07-18-2020 Episodic Deficiency and other anemia (2 sources) Iron deficiency anemia, unspecified; Translations: [Iron deficiency anemia, unspecified] Episodic Diabetes mellitus with complications (17 sources) Type 2 diabetes mellitus in obese; Translations: [Type 2 diabetes mellitus with other specified complication] Onset: 03-26-2018 10-10-2022 Chronic Diabetes mellitus without complication (20 sources) Diabetes mellitus; Translations: [Type 2 diabetes mellitus without complications] Onset: 12-31-2013 12-31-2013 Chronic Disorders of lipid metabolism (20 sources) Hyperlipidemia; Translations: [Hyperlipidemia, unspecified] Onset: 04-26-2011 06-14-2012 Chronic E Codes: Fall (18 sources) Fall; Translations: [Unspecified fall, initial encounter] Onset: 06-06-2024 07-18-2020 Episodic E Codes: Place of occurrence (1 source) Unspecified place in unspecified non-institutional (private) residence as the place of occurrence of the external cause; Translations: [Unspecified place in unspecified non-institutional (private) residence as the place of occurrence of the external cause] Onset: 06-06-2024 Episodic Esophageal disorders (16 sources) Gastroesophageal reflux disease; Translations: [Gastro-esophageal reflux disease without esophagitis] Onset: 04-19-2010 Resolved: 04-15-2016 02-24-2005 Chronic Essential hypertension (20 sources) Hypertensive disorder; Translations: [Essential hypertension] Onset: 06-25-2013 06-25-2013 Chronic Heart valve disorders (2 sources) Nonrheumatic tricuspid (valve) insufficiency; Translations: [Nonrheumatic tricuspid (valve) insufficiency] Onset: 10-15-2015 10-15-2015 Chronic Hyperplasia of prostate (6 sources) Benign prostatic hypertrophy with outflow obstruction; Translations: [Benign prostatic hyperplasia with lower urinary tract symptoms] Onset: 07-29-2008 07-29-2008 Chronic Malaise and fatigue (20 sources) Asthenia; Translations: [Weakness] 07-18-2020 Episodic Mycoses (19 sources) Dermal mycosis; Translations: [Superficial mycosis, unspecified] Episodic Nonspecific chest pain (14 sources) Precordial pain; Translations: [Chest pain] Onset: 10-28-2010 Resolved: 07-02-2015 10-28-2010 Episodic Nutritional deficiencies (11 sources) Vitamin D deficiency; Translations: [Vitamin D deficiency, unspecified] Onset: 04-09-2008 Resolved: 11-03-2016 07-05-2013 Chronic Nutritional deficiencies (19 sources) Cobalamin deficiency; Translations: [Deficiency of other specified B group vitamins] Onset: 06-17-2024 Episodic Osteoarthritis (7 sources) Osteoarthritis of hip; Translations: [Osteoarthritis of hip, unspecified] Onset: 02-16-2010 02-16-2010 Chronic Other aftercare (1 source) intermediate manager (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 of insulin; Translations: [intermediate manager (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 of insulin] Onset: 06-17-2024 Episodic Other and ill-defined cerebrovascular disease (10 sources) 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 disease; Translations: [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 disease, unspecified] 04-11-2022 Chronic Other and ill-defined cerebrovascular disease (15 sources) 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 disease, unspecified; Translations: [Unspecified cerebrovascular disease] Chronic Other circulatory disease (1 source) Personal history of transient ischemic attack (TIA), and cerebral infarction without residual deficits; Translations: [Personal history of transient ischemic attack (TIA), and cerebral infarction without residual deficits] Onset: 06-17-2024 Episodic Other circulatory disease (2 sources) Orthostatic hypotension; Translations: [Orthostatic hypotension] Onset: 01-04-2024 Episodic Other connective tissue disease (10 sources) Pain in calf; Translations: [Pain in left lower leg] 02-29-2020 Episodic Other connective tissue disease (3 sources) Swelling of lower limb; Translations: [Other specified soft tissue disorders] 09-28-2022 Episodic Other connective tissue disease (2 sources) Other specified soft tissue disorders; Translations: [Swelling of limb] 09-28-2022 Episodic Other connective tissue disease (5 sources) Pain of toe of left foot; Translations: [Pain in left toe(s)] 07-31-2023 Episodic Other connective tissue disease (5 sources) Pain of toe of right foot; Translations: [Pain in right toe(s)] 07-31-2023 Episodic Other connective tissue disease (1 source) Other symptoms and signs involving the nervous system; Translations: [Other symptoms and signs involving the nervous system] Onset: 06-06-2024 Episodic Other diseases of veins and lymphatics (1 source) Vascular insufficiency; Translations: [Venous insufficiency (chronic) (peripheral)] 09-06-2024 Episodic Other endocrine disorders (1 source) Hypoglycemia, unspecified; Translations: [Hypoglycemia, unspecified] Onset: 06-17-2024 Chronic Other hereditary and degenerative nervous system conditions (10 sources) Impaired cognition; Translations: [Mild cognitive impairment, so stated] 04-11-2022 Chronic Other hereditary and degenerative nervous system conditions (10 sources) Mild cognitive impairment, so stated; Translations: [Mild cognitive impairment, so stated] Onset: 06-17-2024 Chronic Other hereditary and degenerative nervous system conditions (6 sources) Restless legs; Translations: [Restless legs syndrome] Onset: 04-20-2020 04-20-2020 Chronic Other injuries and conditions due to external causes (7 sources) Closed injury of head; Translations: [Unspecified injury of head, initial encounter] 02-09-2022 Episodic Other liver diseases (6 sources) Chronic liver disease; Translations: [Liver disease, unspecified] Onset: 06-22-2006 06-22-2006 Chronic Other lower respiratory disease (20 sources) Dyspnea; Translations: [Cough] Onset: 02-25-2011 Resolved: 07-02-2015 08-06-2015 Episodic Other lower respiratory disease (10 sources) Cough; Translations: [Cough] 07-22-2019 Episodic Other lower respiratory disease (2 sources) Shortness of breath; Translations: [Shortness of breath] Episodic Other male genital disorders (6 sources) Secondary erectile dysfunction; Translations: [Male erectile dysfunction, unspecified] Onset: 03-31-2009 03-31-2009 Chronic Other nervous system disorders (10 sources) Polyneuropathy; Translations: [Polyneuropathy, unspecified] 12-17-2020 Chronic Other nervous system disorders (13 sources) Polyneuropathy, unspecified; Translations: [Unspecified hereditary and idiopathic peripheral neuropathy] Onset: 06-06-2024 Chronic Other nervous system disorders (2 sources) Abnormal gait; Translations: [Unspecified abnormalities of gait and mobility] 10-10-2022 Episodic Other nervous system disorders (1 source) Unspecified abnormalities of gait and mobility; Translations: [Abnormality of gait] 10-10-2022 Episodic Other non-traumatic joint disorders (20 sources) Hip pain; Translations: [Pain in left hip] 07-18-2020 Episodic Other non-traumatic joint disorders (2 sources) Pain in left shoulder; Translations: [Left shoulder pain] 10-31-2022 Episodic Other nutritional; endocrine; and metabolic disorders (12 sources) Obesity; 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, unspecified] Onset: 02-08-2016 02-09-2016 Chronic Other nutritional; endocrine; and metabolic disorders (16 sources) Body mass index 40+ - severely obese; Translations: [Body mass index (BMI) 40.0-44.9, adult] Onset: 07-30-2019 07-18-2020 Chronic Other nutritional; endocrine; and metabolic disorders (14 sources) Obesity, unspecified; 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, unspecified] Onset: 03-07-2024 Chronic Other nutritional; endocrine; and metabolic disorders (6 sources) Morbid obesity; Translations: [Morbid (severe) obesity due to excess calories] Onset: 04-23-2012 04-23-2012 Chronic Other nutritional; endocrine; and metabolic disorders (1 source) Morbid (severe) obesity due to excess calories; Translations: [Morbid (severe) obesity due to excess calories] Onset: 03-28-2024 Chronic Other nutritional; endocrine; and metabolic disorders (1 source) Body mass index (BMI) 38.0-38.9, adult; Translations: [Body mass index [BMI] 38.0-38.9, adult] Onset: 03-28-2024 Chronic Other skin disorders (1 source) Asteatosis cutis; Translations: [Xerosis cutis] 07-31-2023 Episodic Other skin disorders (1 source) Callus of heel; Translations: [Corns and callosities] 07-31-2023 Episodic Other upper respiratory disease (10 sources) Vocal cord dysfunction; Translations: [Other diseases of vocal cords] 07-18-2020 Episodic Other upper respiratory infections (12 sources) Upper respiratory infection; Translations: [Acute upper respiratory infection, unspecified] Onset: 12-07-2016 12-07-2016 Episodic Otitis media and related conditions (1 source) Acute left otitis media; Translations: [Otitis media, unspecified, left ear] 01-23-2023 Episodic Parkinson`s disease (20 sources) Parkinson's disease; Translations: [Parkinson's disease] Onset: 07-30-2019 Chronic Parkinson`s disease (1 source) Parkinson`s disease; Translations: [Parkinson's disease without dyskinesia, without mention of fluctuations] Onset: 06-17-2024 [place]-; endo-; and myocarditis; cardiomyopathy (15 sources) 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; Translations: [Cardiomyopathy] Onset: 10-28-2010 10-28-2010 Chronic Residual codes; unclassified (10 sources) Obstructive sleep apnea syndrome; Translations: [Obstructive sleep apnea (adult) (pediatric)] 07-18-2020 Chronic Residual codes; unclassified (11 sources) Obstructive sleep apnea (adult) (pediatric); Translations: [Obstructive sleep apnea (adult)(pediatric)] Onset: 03-28-2024 Chronic Residual codes; unclassified (1 source) Pain; Translations: [Pain, unspecified] 07-31-2023 Episodic Spondylosis; intervertebral disc disorders; other back problems (10 sources) Degeneration of cervical intervertebral disc; Translations: [Other cervical disc degeneration, unspecified cervical region] 04-14-2021 Chronic Syncope (2 sources) Syncope and collapse; Translations: [Syncope and collapse] Onset: 06-17-2024 Episodic Thyroid disorders (6 sources) Hypothyroidism; Translations: [Hypothyroidism, unspecified] Onset: 08-21-2010 08-21-2010 Chronic Transient cerebral ischemia (1 source) Transient cerebral ischemic attack, unspecified; Translations: [Transient cerebral ischemic attack, unspecified] Onset: 06-17-2024 Chronic Unclassified (15 sources) Body mass index (BMI) 40.0-44.9, adult; Translations: [Body mass index (BMI) 39.0-39.9, adult] Onset: 06-25-2013 Resolved: 07-02-2015 12-04-2014 Chronic Unclassified (4 sources) 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 ; Translations: [Presence of cardiac and vascular implant and graft, unspecified] Onset: 07-02-2015 07-02-2015 Unclassified (2 sources) Long-term drug therapy; Translations: [Other intermediate teacher (current) drug therapy] Onset: 10-28-2010 10-28-2010 Unclassified (10 sources) Age AND/OR growth finding; Translations: [65 years of age or older] 03-16-2021 Unclassified (1 source) Obesity, class 2; 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, class 2] Onset: 03-28-2024 Unclassified (1 source) Parkinsonism, unspecified; Translations: [Parkinsonism, unspecified] Onset: 06-06-2024 Unclassified (1 source) Cough, unspecified; Translations: [Cough, unspecified] Onset: 08-10-2023 Viral infection (10 sources) Disease caused by 2019-nCoV; Translations: [COVID-19] 03-15-2021 Episodic Past or Other Problems Problem Classification Problem Date Documented Date Episodic/Chronic Abdominal hernia (14 sources) Diaphragmatic hernia; Translations: [Diaphragmatic hernia without obstruction or gangrene] Onset: 09-27-2006 Resolved: 12-22-2014 04-27-2010 Episodic Abdominal pain (16 sources) Right flank pain; Translations: [Unspecified abdominal pain] Onset: 08-03-2006 Resolved: 12-22-2014 05-09-2017 Episodic Acquired foot deformities (1 source) Foot drop, left foot; Translations: [Foot drop, left foot] Onset: 01-04-2024 Episodic Appendicitis and other appendiceal conditions (14 sources) Appendicitis; Translations: [Unspecified appendicitis] Onset: 05-09-2016 Resolved: 03-26-2018 07-03-2019 Episodic Asthma (4 sources) Asthma; Translations: [Unspecified asthma, uncomplicated] Resolved: 06-28-2019 06-28-2019 Chronic Deficiency and other anemia (2 sources) Anemia; Translations: [Anemia, unspecified] Onset: 03-21-2016 03-21-2016 Episodic Deficiency and other anemia (6 sources) Iron deficiency anemia secondary to inadequate dietary iron intake; Translations: [Other iron deficiency anemias] Onset: 03-31-2016 03-31-2016 Episodic Diabetes mellitus without complication (1 source) Hyperglycemia, unspecified; Translations: [Hyperglycemia, unspecified] Onset: 03-07-2024 Episodic Diverticulosis and diverticulitis (4 sources) Diverticulitis of large intestine without perforation or abscess without bleeding; Translations: [Diverticulitis of colon (without mention of hemorrhage)] Resolved: 12-22-2014 12-22-2014 Chronic Gastritis and duodenitis (4 sources) Acute gastritis; Translations: [Acute gastritis without bleeding] Onset: 09-27-2006 Resolved: 12-22-2014 12-22-2014 Episodic Open wounds of head; neck; and trunk (8 sources) Laceration of right eyebrow; Translations: [Laceration without foreign body of right eyelid and periocular area, initial encounter] Onset: 01-08-2024 02-09-2022 Episodic Other connective tissue disease (6 sources) Synovial cyst of right popliteal space; Translations: [Synovial cyst of popliteal space [Blanco], right knee] Onset: 10-28-2019 10-28-2019 Episodic Other endocrine disorders (4 sources) Testicular hypofunction; Translations: [Testicular hypofunction] Onset: 10-17-2007 Resolved: 11-03-2016 11-03-2016 Chronic Other injuries and conditions due to external causes (1 source) Unspecified injury of head, initial encounter; Translations: [Unspecified injury of head, initial encounter] Onset: 01-08-2024 Episodic Other screening for suspected conditions (not mental disorders or infectious disease) (8 sources) Patient encounter status; Translations: [Encounter for screening for malignant neoplasm of colon] Onset: 01-29-2015 Resolved: 04-20-2020 01-29-2015 Episodic Residual codes; unclassified (6 sources) Family history of cancer of colon; Translations: [Family history of malignant neoplasm of digestive organs] Onset: 12-22-2014 12-22-2014 Episodic Spondylosis; intervertebral disc disorders; other back problems (10 sources) Low back pain; Translations: [Low back pain] Onset: 10-09-2013 10-10-2022 Episodic Sprains and strains (4 sources) Lumbar sprain; Translations: [Sprain of ligaments of lumbar spine, initial encounter] Onset: 09-01-2011 Resolved: 10-27-2011 10-27-2011 Episodic Unclassified (4 sources) Family history of ischemic heart disease and other diseases of the circulatory system; Translations: [Family history of ischemic heart disease and other diseases of the circulatory system] Resolved: 08-06-2015 12-04-2014 Episodic Results Test Name Value Interpretation Reference Range Facility [facility] 09-06-2024 CNOV Office Visit (PODIWS ) OLMAN SYED ([id number]) 1935 M Date Time Provider Department 09/06/24 1:20 PM BARBIE NOVAS During your visit today, we recorded the following information about you: Cintia Izquierdo MA Student 09/06/2024 2:17 PM Signed AMB ROOMING INTAKE FLOWSHEET DATA Patient presents with: Left Foot - Established Patient, Follow Up, Diabetic Foot Care Right Foot - Established Patient, Follow Up, Diabetic Foot Care Cintia Izquierdo MA Student Barbie Nova 09/06/2024 2:17 PM Signed Last saw pcp: not in chart Subjective: Patient presents to clinic c/o painful toenails. They state that the nails are especially painful with shoe gear and pressure. Patient states that nails 1-5 b/l are painful. Patient admits to being diabetic and states that their blood sugar was 113 mg/dL this AM. No other pedal complaints at this time. Patient states no change in medications or medical history since last visit. Objective: Patient presents to clinic ambulating in diabetic shoes Vasc: DP and PT pulses are faintly palpable bilateral. CFT is less than 5 seconds bilateral. Skin temperature is warm to cool proximal to distal bilateral. There is moderate edema or varicosities noted. Neuro: Protective sensation is decreased to the foot and toes when tested with the 5.07 SWM bilateral. Vibratory sensation is absent at the hallux IPJ bilateral. The hallux is downgoing bilateral. Derm: Nails 1-5 b/l are painful, discolored-yellow, thick, crumbly, dystrophic and with subungal debris. Skin is of normal turgor, texture and hair growth is absent bilateral. There are no hyperkeratosis, ulcerations, scars, verruca or other lesions noted. Ortho: Muscle strength is 5/5 for all pedal groups tested. Ankle joint DF is decreased with the knee extended with no pain or crepitus noted. 1st MPJ ROM is decreased bilateral. Assessment: (B35.1) Onychomycosis (primary encounter diagnosis) (M79.675) Pain in toe of left foot (M79.674) Pain in toe of right foot (E11.42) Diabetic polyneuropathy associated with type 2 diabetes mellitus (HCC) (I87.2) Venous insufficiency Plan: Patient was seen and evaluated. Nails 1-5 bilateral were debrided in length and thickness. Patient was instructed on the continued importance of diabetic foot care along with proper diet and keeping their blood sugar under control to prevent complications. I stressed the importance of avoiding barefoot walking, wearing good shoes and inspection of feet. I discussed how this patient suffers from neuropathy and that it is important that she monitor for any open wounds. If she develops any issues, she is to contact our office immediately and we will have them seen. Discussed swelling in legs. Will try tubigrip during the day. Can apply during the day and remove at night. Patient is to RTC in 3-4 months. EMILY Duff Barbie 09/06/2024 1:58 PM Signed Diabetes Foot Care Instructions When you have diabetes, proper foot care is very important. Poor foot care may lead to amputation of a foot or leg. As a person with diabetes, you are more vulnerable to foot problems, because diabetes can damage your nerves and reduce blood flow to your feet. Here are some diabetes foot care tips to follow: Wash and Dry Your Feet Daily Use mild soaps Use warm water Pat your skin dry; do not rub. Thoroughly dry your feet. After washing, use lotion on your feet to prevent cracking. Do not put lotion between your toes. Examine Your Feet Each Day Check the tops and bottoms of your feet. Have someone else look at your feet if you cannot see them. Check for dry, cracked skin. Look for blisters, cuts, scratches, or other sores. Check for redness, increased warmth, or tenderness when touching any area of your feet. Check for ingrown toenails, corns, and calluses. If you get a blister or sore from your shoes, do not pop it. Apply a bandage and wear a different pair of shoes. Take Care of Your Toenails Cut toenails after bathing, when they are soft. Cut toenails straight across and smooth with a nail file. Avoid cutting into the corners of toes. Do not cut cuticles. If you have neuropathy (or decreased sensation in your feet) a secondary art teacher should always cut your toenails. Be Careful When Exercising Walk and exercise in comfortable shoes. Do not exercise when you have open sores on your feet. Protect Your Feet With Shoes and Socks Never go barefoot. Always protect your feet by wearing shoes or hard-soled slippers or footwear. Avoid shoes with high heels and pointed toes. Avoid shoes that expose your toes or heels (such as open-toed shoes or sandals). These types of shoes increase your risk for injury and potential infections. Try on new footwear with the type of socks you usually wear. Do not wear new shoes for more t (more content not included)... Normal [facility] Neurology Visit Reporton Neurology Visit Report [facility] [address], [address] [place] [id number] OFFICE VISIT Date of Service: 08/01/24 MR#: [id number] Acct: [id number] Name: OLMAN SYED Rep #: [id number] : 1935 Provider: Dr. Rich calvert MD Age/Sex: 88/M Location: BMS.BN Status: Signed HPI HPI Chief Complaint: Routine f/u Details: Interim History: Olman returns for follow-up. He has a history of hypertension, diabetes mellitus, iron deficiency anemia, hyperlipidemia, obstructive sleep apnea (on CPAP), hiatal hernia, GERD, coronary artery disease status post stent placement, right eye monocular diplopia, macular degeneration, lumbar spinal fusion, hypothyroidism, stage III chronic renal insufficiency and Parkinson's disease. Around 2018, he began to have a tremor in the right hand. Over time, he also developed a tremor in the left hand and intermittent tremor in the lower extremities. His tremor worsened over time and is worse with action. He does not feel the tremor is causing significant functional interference. He takes escitalopram for anxiety. He has had slowing of his gait. He ambulates with a rollator. He had had multiple falls including further falls recently. Physical therapy in 2022 was of benefit. His left shoulder pain resolved with physical therapy. He does not experience disequilibrium or vertigo with these falls. He was found to have orthostatic hypotension. Fludrocortisone 0.1mg (initiated in 2023) taken in the morning taken 6 days per week is prescribed for his orthostatic hypotension. He presently no longer exhibits orthostatic hypotension. He previously had lightheadedness but now denies having lightheadedness. He stated his legs feel weak. He denied having any change in his voice, swallowing difficulty, or change in handwriting. He has had chronic low back pain and right hip pain and had seen a toy painter, Dr. Carmona; a lumbar injection was not of benefit. He subsequently has seen another toy painter, Dr. Christophe. He has had coccygeal pain. Carbidopa/levodopa has been of benefit for his tremor and gait, and has been well-tolerated. No worsening in the shuffling component of his gait has been noted recently. His tremor has recently worsened further. He has had memory difficulty since 2019. He has a tendency to forget conversations and appointments and to repeat conversations. He remains independent in basic activities of daily living. He was found to have a B12 deficiency in 2020. A B12 injection caused fatigue that lasted about 3 weeks. He subsequently started an OTC vitamin B12 supplement of 1,000mcg/day. His last vitamin B12 level was normal (06/22/21). He is cognitively independent in his daily activities. No further worsening of his memory has been noted since his visit in September 2022. Per prior discussion, he did not want to take medication for his memory difficulty. In October 2020, he had an episode of right arm and right leg numbness and right arm weakness, which resolved over a 2 week period. This episode was likely due to an ischemic stroke. He did not seek immediate medical attention at the time of the onset of his symptoms. On subsequent outpatient medical evaluation, a head CT was performed and he was found to have a left basal ganglia infarct that was new compared to his prior head CT from 2019. He takes aspirin 81mg daily and clopidogrel 75mg daily; he was on these medications at the time his stroke in October 2020 occurred. He does not report further symptoms suggestive of a stroke since his stroke in October 2020. Prior use of citalopram worsened his tremor. Physical therapy was not of benefit. Mini-Mental status exam score was 25/30 in December 2020 and 30/30 in September 2022. Physical Exam: Neuro: The patient is awake; he is mildly bradyphrenic; no rigidity is noted in the wrists; no tremor is noted in the hands when arms are extended; motor strength is 5/5 in the quadriceps bilaterally and right foot dorsiflexors; he has a left AFO; he is oriented to day of the week; he is able to subtract 7 from 100; he is able to spell world backwards Heart: Regular rate and rhythm Neck: No bruits Supplemental Info EKG (02/07/2020): Sinus rhythm with premature atrial complexes; right bundle branch block; left anterior fascicular block; bifascicular block. Abnormal EKG. Ferritin, iron (02/09/2020): Ferritin 16 (low), iron 39 (low). B12, folate (02/11/2020): B12 161 (low) Head CT (10/30/2020): There is mild cerebral atrophy with widening of the extra-axial spaces and ventricular dilatation. There are areas of decreased attenuation within the white matter tracts of the supratentorial brain, consistent with microvascular disease changes. I suspect a new subacute lacunar infarct in the left basal ganglia. Normal brainstem. Normal cerebellum. There is no intracranial hemorrhage. There are no findings of an ac (more content not included)... Normal [facility] MR/BMS.Bon 07-25-2024 MR/BMS.B [facility] [address] [place] [address] OFFICE VISIT Date of Service: 07/25/24 MR#: [id number] Acct: [id number] Name: OLMAN SYED Rep #: [id number] : 1935 Provider: Dr. Keron fonseca MD Age/Sex: 88/M Location: [facility] Status: Signed Intake Vital Signs 06/24/24 14:44 07/25/24 14:40 Height 5 ft 3 in 5 ft 3 in Weight: 226 lb 4 oz 224 lb 6 oz BMI 40.1 39.7 BP 114/69 130/83 H Blood Pressure Location Lt brachial Rt brachial Position Sitting Sitting Respiration 16 16 Pulse 63 68 Pulse Source Monitor Monitor Temp 97.8 F 98.2 F Temp Source Temporal Temporal Pulse Oximetry (%) 96 96 Oxygen Delivery Method room air room air Intake Visit Reasons: 1 M FU Chief Complaint: 1 M fu Utility Hand Required: No Accompanied by: Is patient in pain?: Yes (lower back ) Pain scale (1-10): 5 Allergies lisinopril Allergy (Mild, Verified 07/25/24 14:34) Cough naproxen (From Aleve) Allergy (Verified 07/25/24 14:34) HIVES losartan Adverse Reaction (Intermediate, Verified 07/25/24 14:34) Jitters metoprolol Adverse Reaction (Intermediate, Verified 07/25/24 14:34) Jitters pioglitazone HCl (From Actos) Adverse Reaction (Mild, Verified 07/25/24 14:34) Upset Stomach Medications ???Medication ???Instructions ???Recorded ???Confirmed ???Type cholecalciferol (vitamin D3) 125 5,000 unit PO DAILY vitamin 07/25/24 History mcg (5,000 unit) capsule finasteride 5 mg tablet 5 mg PO DAILY prostate 06/29/15 History aspirin 81 mg tablet,delayed 81 mg PO DAILY heart health 07/25/24 History release acetaminophen 500 mg tablet 1,000 mg (2 x 500 mg) PO Q6H PRN 0 02/19/20 07/25/24 Rx PRN Pain Score 1-3/10 Elizabeth Figueroa #1 ea 10/14/20 07/25/24 Rx vitamins A,C,C-qykp-erwmbp 2,148 1 tab PO BID 12/17/20 07/25/24 His tory mcg-113 mg-45 mg-17.4 mg tablet (PreserVision AREDS) pen needle, diabetic 32 gauge x #100 ea 12/25/20 07/25/24 Rx 1/4 clopidogrel 75 mg tablet 75 mg PO DAILY TIA #90 tabs 07/25/24 Rx amlodipine 5 mg tablet 5 mg PO DAILY BP #90 tabs 09/19/23 07/25/24 Rx Compression stockings (10-20) #2 ea 01/04/24 07/25/24 Rx Left AFO #1 ea 01/04/24 07/25/24 Rx levothyroxine 50 mcg tablet 50 mcg PO DAILY thyroid #90 tabs 0 02/01/24 07/25/24 Rx escitalopram oxalate 10 mg tablet 10 mg PO DAILY #90 tabs 03/05/24 07/25/24 Rx furosemide 40 mg tablet 40 mg PO DAILY #90 TABLETS 4 07/25/24 Rx pantoprazole 40 mg tablet,delayed See Rx Instructions .Route 07/25/24 Rx release .COMPLEX #90 tabs ranolazine 500 mg tablet,extended 500 mg PO BID #180 tabs 03/12/24 07/25/24 Rx release,12 hr metformin 500 mg tablet 500 mg PO BIDCM diabetes #180 tabs 03/19/24 07/25/24 Rx Held on 06/16/24. Instructions: Resume on 07/26/24. May resume your metformin as long as blood sugars have remained > 140 upon serial checks. If they are lower than this DO NOT restart until review with your primary care physician. carbidopa 25 mg-levodopa 100 mg See Rx Instructions .Route 4 07/25/24 Rx tablet (Sinemet) .COMPLEX #150 tabs fludrocortisone 0.1 mg tablet See Rx Instructions PO .COMPLEX 07/25/24 Rx #28 tabs isosorbide mononitrate 30 mg 30 mg PO DAILY #90 TABLETS 4 07/25/24 Rx tablet,extended release 24 hr ascorbic acid (vitamin C) 1,000 mg 1 g PO DAILY 06/15/24 07/25/24 H istory tablet (C-1000) cyanocobalamin (vitamin B-12) 1,000 mcg PO DAILY 06/15/24 History 1,000 mcg tablet (Vitamin B-12) ferrous sulfate 325 mg (65 mg 325 mg PO DAILY 06/15/24 07/25/24 History iron) tablet (Feosol) folic acid 1 mg tablet 1 mg PO DAILY #30 tabs 06/15/24 Rx hydrocodone-acetaminop hen 5-325mg 0.5 - 1 tab PO BID PRN PRN pain 1 08/16/23 07/25/24 History 5mg-325mg zinc acetate 50 mg (zinc) capsule 50 mg PO DAILY 06/15/24 07/25/24 History insulin human U-100 NPH-regulr See Rx Instructions subcut BID 12/1107/25/24 History 70-30 mix 100 unit/mL subcutaneous susp (Humulin 70/30 U-100 Insulin) trazodone 50 mg tablet 25 mg (1/2 x 50 mg) PO QHS PRN PRN 07/03/24 07/25/24 Rx insomnia #30 tabs pravastatin 20 mg tablet 20 mg PO DAILY cholesterol #90 tab s 07/23/24 07/25/24 Rx Have you fallen in the past year?: Yes (06/2023, slipped out of bed ) [facility] Medical History (Updated 07/29/24 @ 07:[address] Keron Maciel MD) Parkinson's disease Vasovagal episode Obesity (BMI 30-39.9) TIA (transient ischemic attack) Orthostatic hypotension B12 nutritional deficiency Mild cognitive impairment Diabetes mellitus Cardiomyopathy Cervical osteoarthritis Bilateral arm pain Cervical radiculopathy Visit for sutu (more content not included)... Normal [facility] Cerv Spine 2 or 3 Viewson Cerv Spine 2 or 3 Views [facility] Imaging Services [address] [place] [address] Cerv Spine 2 or 3 Views MR#: [id number] Acct: [id number] Name: OLMAN SYED Rep #: [id number] : 1935 M 88 From: Sole rosenthal MD PCP: Dr. Keron Maciel MD Status: REG CLI Study: Cerv Spine 2 or 3 Views Date of Exam: 06/24/24 Exam# [id number] Ordering Dr: Joan Serna [id number] HISTORY: CERVICAL RADICULAR SYMPTOMS. TECHNIQUE: XR Spine Cervical 4 or 5 Views. COMPARISON: 10/05/2022. FINDINGS: VERTEBRAE: Vertebral body heights maintained. No acute fracture identified. ALIGNMENT: Chronic minimal anterolisthesis of C2-3. Chronic mild reversal of the cervical lordosis. INTERVERTEBRAL DISCS: Advanced degenerative endplate changes with intervertebral disc space narrowing of C3-4, C4-5, C5-6, and C6-7. SOFT TISSUES: No significant prevertebral soft tissue swelling. RAD/Cerv Spine 2 or 3 Views IMPRESSION: No acute fracture or dislocation identified in the cervical spine. Multilevel degenerative change. Electronically Signed: Sole Candelario MD at 16:06 EST , CC: Joan Serna; Dr. Keron Maciel MD [facility] Nurse: Signed Normal [facility] MR/BMS.IMBon 06-24-2024 MR/BMS.IMB [facility] [address] [place] [address] OFFICE VISIT Date of Service: 06/24/24 MR#: [id number] Acct: [id number] Name: OLMAN SYED Rep #: [id number] : 1935 Provider: Dr. Keron fonseca MD Age/Sex: 88/M Location: [facility] Status: Signed Intake Vital Signs 06/15/24 11:43 06/24/24 14:44 Height 5 ft 3 in 5 ft 3 in Weight: 226 lb 4 oz BMI 40.1 BP 114/69 Blood Pressure Location Lt brachial Position Sitting Respiration 16 Pulse 63 Pulse Source Monitor Temp 97.8 F Temp Source Temporal Pulse Oximetry (%) 96 Oxygen Delivery Method room air Intake Visit Reasons: [facility] Discharge FU Chief Complaint: [facility] discharge fu Utility Hand Required: No Accompanied by: Self Is patient in pain?: Yes (middle of back) Pain scale (1-10): 3 Allergies lisinopril Allergy (Mild, Verified 06/24/24 14:34) Cough naproxen (From Aleve) Allergy (Verified 06/24/24 14:34) HIVES losartan Adverse Reaction (Intermediate, Verified 06/24/24 14:34) Jitters metoprolol Adverse Reaction (Intermediate, Verified 06/24/24 14:34) Jitters pioglitazone HCl (From Actos) Adverse Reaction (Mild, Verified 06/24/24 14:34) Upset Stomach Medications ???Medication ???Instructions ???Recorded ???Confirmed ???Type cholecalciferol (vitamin D3) 125 5,000 unit PO DAILY vitamin 06/29/15 06/24/24 History mcg (5,000 unit) capsule finasteride 5 mg tablet 5 mg PO DAILY prostate 06/29/15 06/24/24 History aspirin 81 mg tablet,delayed 81 mg PO DAILY heart health 07/24/15 06/24/24 History release acetaminophen 500 mg tablet 1,000 mg (2 x 500 mg) PO Q6H PRN 02/19/20 06/24/24 Rx PRN Pain Score 1-3/10 Handi cap Placard #1 ea 10/14/20 06/24/24 Rx vitamins A,C,W-merf-hmtwgw 2,148 1 tab PO BID 12/17/20 06/24/24 History mcg-113 mg-45 mg-17.4 mg tablet (PreserVision AREDS) pen needle, diabetic 32 gauge x #100 ea 12/25/20 06/24/24 Rx 1/4 clopidogrel 75 mg tablet 75 mg PO DAILY TIA #90 tabs 09/11/23 06/24/24 Rx amlodipine 5 mg tablet 5 mg PO DAILY BP #90 tabs 09/19/23 06/24/24 Rx pravastatin 20 mg tablet 20 mg PO DAILY cholesterol #90 tabs 10/03/23 06/24/24 Rx Compression stockings (10-20) #2 ea 01/04/24 06/24/24 Rx Left AFO #1 ea 01/04/24 06/24/24 Rx levothyroxine 50 mcg tablet 50 mcg PO DAILY thyroid #90 tabs 02/01/24 06/24/24 Rx escitalopram oxalate 10 mg tablet 10 mg PO DAILY #90 tabs 03/05/24 06/24/24 Rx furosemide 40 mg tablet 40 mg PO DAILY #90 TABLETS 03/05/24 06/24/24 Rx pantoprazole 40 mg tablet,delayed See Rx Instructions .Route 03/05/24 06/24/24 Rx release .COMPLEX #90 tabs ranolazine 500 mg tablet,extended 500 mg PO BID #180 tabs 03/12/24 06/24/24 Rx release,12 hr metformin 500 mg tablet 500 mg PO BIDCM diabetes #180 tabs 03/19/24 06/24/24 Rx carbidopa 25 mg-levodopa 100 mg See Rx Instructions .Route 03/28/24 06/24/24 Rx tablet (Sinemet) .COMPLEX #150 tabs fludrocortisone 0.1 mg tablet See Rx Instructions PO .COMPLEX 03/28/24 06/24/24 Rx #28 tabs isosorbide mononitrate 30 mg 30 mg PO DAILY #90 TABLETS 04/01/24 06/24/24 Rx tablet,extended release 24 hr ascorbic acid (vitamin C) 1,000 mg 1 g PO DAILY 06/15/24 06/24/24 History tablet (C-1000) cyanocobalamin (vitamin B-12) 1,000 mcg PO DAILY 06/15/24 06/24/24 History 1,000 mcg tablet (Vitamin B-12) ferrous sulfate 325 mg (65 mg 325 mg PO DAILY 06/15/24 06/24/24 History iron) tablet (Feosol) folic acid 1 mg tablet 1 mg PO DAILY #30 tabs 06/15/24 06/24/24 Rx hydrocodone-acetaminop hen 5-325mg 0.5 - 1 tab PO BID PRN PRN pain 06/15/24 06/24/24 History 5mg-325mg trazodone 50 mg tablet 25 mg PO QHS PRN PRN insomnia 06/15/24 06/24/24 History zinc acetate 50 mg (zinc) capsule 50 mg PO DAILY 06/15/24 06/24/24 History insulin human U-100 NPH-regulr See Rx Instructions subcut BID 06/24/24 06/24/24 History 70-30 mix 100 unit/mL subcutaneous susp (Humulin 70/30 U-100 Insulin) Have you fallen in the past year?: No [facility] Medical History (Updated 06/24/24 @ 15:[address] 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 Normal [facility] Bedside Glucoseon 06-16-2024 FINGERSTICK GLU 219 mg/dL High 74-106 [facility] Comment on above: Result Comment: NAGI SIMMS OF PATIENT CARE PER NURSING PROTOCOL Performed By: #### L 501.080 ####[facility] [address] [place], [address] FINGERSTICK GLU 130 mg/dL High 74-106 [facility] Comment on above: Result Comment: NAGI SIMMS OF PATIENT CARE PER NURSING PROTOCOL Performed By: #### L 501.080 ####[facility] [address] [place], [address] Discharge Instructionon 05-20 Discharge Instruction [facility] Medical Records Department [address] [place] [address] Instructions for Home/Discharge Instructions 06/16/24 1112 MR#: [id number] Acct: [id number] Name: OLMAN SYED Rep #: [id number] : 1935 88 From: Amalia Moncada MD PCP: Dr. Keron Maciel MD Status:ADM BRITTANY Discharge Instructions Diet Discharge Diet: Low fat / Low cholesterol and 2000 Calorie Control Diet DC O2, CPAP, BIPAP needs Home O2 Discharge instructions: No Dressing / Incision Discharge Activity: - (Encourage continued routine activity in the home. Avoid > moderate activity until cleared per primary care.) May resume sexual activity in: 10-14 days Weight Bearing Status: Weight bearing as tolerated Dressing / Incision Call your doctor if you observe: Fever of 101 or Higher, Inability to have a bowel movement, Shortness of breath, Dizziness, Fainting spells, Swelling in the ankles, Chest pain, Increased palpitations (irregular heartbeat), Calf discomfort and Uncontrolled pain Follow Up Care Test Results: Test results from this visit will be discussed in further detail at your follow-up appointment, if applicable. Discharge Plan Admission Admit Date/Time: 06/15/24 02:44 Primary Reason for Your Visit: Syncopal event, Hypoglycemia Attending Provider: Amalia Moncada Primary Care Provider: Keron Maciel Consulting Providers: Neri Arana Instructions Patient Instructions: Hypoglycemia (Low Blood Sugar) Additional Instructions / Restrictions: ADDITIONAL INSTRUCTIONS/DIRECTION : #1. Syncopal event, High suspicion secondary to Acute Hypoglycemic (low blood sugar events) as opposed to transient ischemic attack, STROKE ruled out: --HgBA1c 6.2% with upon presentation ongoing episodes of hypoglycemia felt likely the primary etiology for syncopal event and acute presentation. We have stopped your short and long acting insulin at this time given persistently low blood sugars even with attempts to decrease these regimens. At discharge please keep a log of your blood sugars. Please continue to avoid using these agents until ongoing blood sugar trending reviewed with your primary care at follow-up. We are cautiously going to allow restart as noted in medications of your metformin only BUT this also can cause low blood sugars so please monitor your blood sugars and if you are having again recurrent low BS events STOP this medication immediately and review with primary care at follow-up. Also, as noted if your blood sugars are not routinely > 140 then this medication also should be held until re- evaluation with your primary care physician. --CT of the head with no acute intracranial findings. --MRI brain with no acute intracranial findings nor any evidence of any acute or subacute or even a remote infarct. --Echocardiogram with normal LV size, LV EF 55%, contrast injection performed, compared to previous study LV systolic function improved. --FLP with total cholesterol 148, triglycerides 189, LDL 64, VLDL 38, HDL 46. --Additional labs included mag 1.8, TSH 3.230, folic acid 8.0. Given your folic acid level was notably low normal range at discharge we did order ongoing oral supplementation sent to your pharmacy. Please have follow-up level with your primary care physician outpatient to assure improved level following this regimen intervention. Discharge Orders/Prescriptions Prescriptions: New folic acid 1 mg tablet 1 mg PO DAILY Qty: 30 0RF Continued PreserVision AREDS 7,160 unit- 113 mg-100 unit tablet 1 tab PO BID Rx Instructions: administer with AM and PM meals fludrocortisone 0.1 mg tablet See Rx Instructions PO .COMPLEX Qty: 28 5RF Rx Instructions: Take 1 tablet orally in the morning 6 days/week (Monday, Monday, Monday, , Monday, Monday) carbidopa-levodopa [Sinemet] 25-100 mg tablet See Rx Instructions .ROUTE .COMPLEX Qty: 150 5RF Rx Instructions: Take 2 tabs orally every morning, 1 tab every mid-day, and 2 tabs every night (DME) Left AFO See Rx Instructions .Route .MEDSUPPLY Qty: 1 0RF Rx Instructions: As directed (DME) Compression stockings (10-20) See Rx Instructions .Route .MEDSUPPLY Qty: 2 0RF Rx Instructions: As directed cholecalciferol (vitamin D3) 5,000 UNIT capsule 5,000 unit PO DAILY Patient Comments: SUPPLIMENT finasteride 5 MG tablet 5 mg PO DAILY Patient Comments: PROSTATE aspirin 81 MG tablet,delayed release (DR/EC) 81 mg PO DAILY acetaminophen 500 MG tablet 1,000 mg PO Q6H PRN PRN (Reason: Pain Score 1-3/10) 0RF trazodone 50 mg tablet 25 mg PO QHS PRN PRN (Reason: insomnia) hydrocodone-acetaminop hen 5-325 mg tablet 0.5 - 1 tab PO BID PRN PRN (Reason: pain) zinc acetate 50 mg (zinc) capsule 50 mg PO DAILY ferrous sulfate [Feosol] 325 mg (65 mg iron) tablet 325 mg PO DAILY cyanocobalamin (vitamin B-12) [Vitamin B-12] 1 (more content not included)... Normal [facility] Urine Drug Screen (VISTA)on 06-16-2024 AMPHETAMINES Negative Normal <1000 ng/mL [facility] Comment on above: Order Comment: SENT LABEL TO U TO COLLECT Performed By: #### L 501.4020, L501.9100, L501.9520, L505.5000, L506.0250, L500.4100, L503.0105 ####[facility] [address] [place], [place], [phone] BARBITIURATES Negative Normal < 200 ng/mL [facility] Comment on above: Order Comment: SENT LABEL TO U TO COLLECT Performed By: #### L 501.4020, L501.9100, L501.9520, L505.5000, L506.0250, L500.4100, L503.0105 ####[facility] [address] [place], [place], [phone] BENZODIAZIPINE Negative Normal < 200 ng/mL [facility] Comment on above: Order Comment: SENT LABEL TO PCU TO COLLECT Performed By: #### L 501.4020, L501.9100, L501.9520, L505.5000, L506.0250, L500.4100, L503.0105 ####[facility] [address] [place], [place], [phone] COCAINE Negative Normal < 300 ng/mL [facility] Comment on above: Order Comment: SENT LABEL TO PCU TO COLLECT Performed By: #### L 501.4020, L501.9100, L501.9520, L505.5000, L506.0250, L500.4100, L503.0105 ####[facility] [address] [place], [address] ECSTACY Negative Normal < 500 ng/mL [facility] Comment on above: Order Comment: SENT LABEL TO PCU TO COLLECT Performed By: #### L 501.4020, L501.9100, L501.9520, L505.5000, L506.0250, L500.4100, L503.0105 ####[facility] [address] [place], [place], [phone] METHADONE Negative Normal < 300 ng/mL [facility] Comment on above: Order Comment: SENT LABEL TO U TO COLLECT Performed By: #### L 501.4020, L501.9100, L501.9520, L505.5000, L506.0250, L500.4100, L503.0105 ####[facility] [address] [place], [place], [phone] OPIATES Negative Normal < 300 ng/mL [facility] Comment on above: Order Comment: SENT LABEL TO PCU TO COLLECT Performed By: #### L 501.4020, L501.9100, L501.9520, L505.5000, L506.0250, L500.4100, L503.0105 ####[facility] [address] [place], [address] PCP Negative Normal < 25 ng/mL [facility] Comment on above: Order Comment: SENT LABEL TO PCU TO COLLECT Performed By: #### L 501.4020, L501.9100, L501.9520, L505.5000, L506.0250, L500.4100, L503.0105 ####[facility] [address] [place], [place], [phone] THC Negative Normal < 50 ng/mL [facility] Comment on above: Order Comment: SENT LABEL TO PCU TO COLLECT Performed By: #### L 501.4020, L501.9100, L501.9520, L505.5000, L506.0250, L500.4100, L503.0105 ####[facility] [address] [place], [address] VISTA UDS PH 5 Normal [facility] Comment on above: Order Comment: SENT LABEL TO PCU TO COLLECT Performed By: #### L 501.4020, L501.9100, L501.9520, L505.5000, L506.0250, L500.4100, L503.0105 ####[facility] [address] [place], [place], [phone] Alcohol, Blood (Medical)-Ser umon 06-15-2024 SERUM ETOH < 3.0 Normal [facility] Comment on above: Result Comment: The serum:whole blood ethanol ratio is approximately 1.14 and varies slightly with hematocrit. Medical Alcohol reference interval and critical value in non-tolerant individuals; 50 - 100 Impairment 100 Intoxication 100 - 250 Severe Poisoning 250 - 400 Deep/possible fatal coma Performed By: #### L 501.4020, L501.9100, L501.9520, L505.5000, L506.0250, L500.4100, L503.0105 ####[facility] [address] [place], [address] Bedside Glucoseon 06-15-2024 FINGERSTICK GLU 117 mg/dL High 74-106 [facility] Comment on above: Result Comment: NAGI GEMENT OF PATIENT CARE PER NURSING PROTOCOL Performed By: #### L 501.9985, L100.0100, L500.4050, L506.1000, L501.9520, L500.4100 #### [facility] [address] [place], [address] FINGERSTICK GLU 125 mg/dL High 74-106 [facility] Comment on above: Result Comment: NAGI GEMENT OF PATIENT CARE PER NURSING PROTOCOL Performed By: #### L 501.080 ####[facility] [address], [address] FINGERSTICK GLU 150 mg/dL High 74-106 [facility] Comment on above: Result Comment: NAGI GEMENT OF PATIENT CARE PER NURSING PROTOCOL Performed By: #### L 501.080 ####[facility] [address] [place], [address] FINGERSTICK GLU 103 mg/dL Normal 74-106 [facility] Comment on above: Result Comment: NAGI GEMENT OF PATIENT CARE PER NURSING PROTOCOL Performed By: #### L 501.9985, L100.0100, L500.4050, L506.1000, L501.9520, L500.4100 #### [facility] [address] [place], [address] FINGERSTICK GLU 66 mg/dL Low 74-106 [facility] Comment on above: Result Comment: NAGI GEMENT OF PATIENT CARE PER NURSING PROTOCOL Performed By: #### L 501.080 #### [facility] [address] [place], [address] FINGERSTICK GLU 69 mg/dL Low 74-106 [facility] Comment on above: Result Comment: NAGI GEMENT OF PATIENT CARE PER NURSING PROTOCOL Performed By: #### L 501.080 ####[facility] [address], [address] Brain without Contraston Brain without Contrast [facility] Imaging Services [address] [place] [address] Brain without Contrast MR#: [id number] Acct: [id number] Name: OLMAN SYED Rep #: [id number] : 1935 M 88 From: Bebeto Gee MD PCP: Dr. Keron Maciel MD Status: ADM BRITTANY Study: Brain without Contrast Date of Exam: 06/15/24 Exam# [id number] Ordering Dr: Neri Arana DO [id number] EXAM: MR HEAD WITHOUT INTRAVENOUS CONTRAST CLINICAL INDICATION: Syncope and TIA with slurred speech x 2. TECHNIQUE: Multiplanar and multisequence MR images of the brain were obtained without intravenous contrast. COMPARISON: CT head without contrast 06/15/2024 and 2023. FINDINGS: BRAIN AND EXTRA-AXIAL SPACES: Unremarkable. No intra- or extra-axial hemorrhage. No intracranial mass or mass effect. Posterior fossa structures are unremarkable. Ventricles are appropriate for age. No hydrocephalus. Basal cisterns are patent. No diffusion restriction to suspect acute or subacute ischemic infarct. No remote cortical-based ischemic infarct. SELLA: Unremarkable. Normal sella turcica, pituitary gland, infundibular stalk, optic chiasm and hypothalamus. AUDITORY SYSTEM: Unremarkable. The internal auditory canals are patent. BONES/JOINTS: Unremarkable. No discrete lytic or blastic abnormalities. SINUSES: Unremarkable as visualized. Clear. MASTOID AIR CELLS: Unremarkable as visualized. Clear. ORBITS: Unremarkable as visualized. Both globes, extraocular muscles, optic nerves and retrobulbar fat appear unremarkable. VASCULATURE: Unremarkable as visualized. Normal flow voids in the major intracranial circulation. MRI/Brain without Contrast IMPRESSION: Negative MRI brain without contrast. No suspicious acute or subacute ischemic infarct or remote ischemic infarct. Electronically Signed: Bebeto Gee MD at 12:43 EST , CC: Dr. Neri Arana DO; Dr. Keron Maciel MD [facility] Nurse: Signed Normal [facility] CBC W/Diff, Automatedon 05-20 ACANTHOCYTE RARE Normal [facility] Comment on above: Performed By: #### L 501.9985, L100.0100, L500.4050, L506.1000, L501.9520, L500.4100 #### [facility] [address] [place], [address] Anisocytosis Ql (Bld) 2+ Normal [facility] Comment on above: Performed By: #### L 501.9985, L100.0100, L500.4050, L506.1000, L501.9520, L500.4100 #### [facility] [address] [place], [address] CRENATED RBC 1+ Normal [facility] Comment on above: Performed By: #### L 501.9985, L100.0100, L500.4050, L506.1000, L501.9520, L500.4100 #### [facility] [address] [place], [address] MACROCYTOSIS 1+ Normal [facility] Comment on above: Performed By: #### L 501.9985, L100.0100, L500.4050, L506.1000, L501.9520, L500.4100 #### [facility] [address] [place], [address] MICROCYTIC 1+ Normal [facility] Comment on above: Performed By: #### L 501.9985, L100.0100, L500.4050, L506.1000, L501.9520, L500.4100 #### [facility] [address] [place], [address] POLYCHROMASIA 1+ Normal [facility] Comment on above: Performed By: #### L 501.9985, L100.0100, L500.4050, L506.1000, L501.9520, L500.4100 #### [facility] [address] [place], [address] SCHISTOCYTES RARE Normal [facility] Comment on above: Performed By: #### L 501.9985, L100.0100, L500.4050, L506.1000, L501.9520, L500.4100 #### [facility] [address] [place], [address] TARGET CELLS 2+ Normal [facility] Comment on above: Performed By: #### L 501.9985, L100.0100, L500.4050, L506.1000, L501.9520, L500.4100 #### [facility] [address] [place], [address] TEAR DROP 1+ Normal [facility] Comment on above: Performed By: #### L 501.9985, L100.0100, L500.4050, L506.1000, L501.9520, L500.4100 #### [facility] [address] [place], [address] SMEAR COMMENT SCANNED Normal [facility] Comment on above: Performed By: #### L 501.9985, L100.0100, L500.4050, L506.1000, L501.9520, L500.4100 #### [facility] [address] [place], [address] Anisocytosis Ql (Bld) 2+ Normal [facility] Comment on above: Performed By: #### L 501.9985, L100.0100, L500.4050, L506.1000, L501.9520, L500.4100 #### [facility] [address] [place], [address] HYPOCHROMASIA RARE Normal [facility] Comment on above: Performed By: #### L 501.9985, L100.0100, L500.4050, L506.1000, L501.9520, L500.4100 #### [facility] [address] [place], [address] PLT EST ADEQUATE Normal ADEQ [facility] Comment on above: Performed By: #### L 501.9985, L100.0100, L500.4050, L506.1000, L501.9520, L500.4100 #### [facility] [address] [place], [address] Comprehensive Metabolic Prof ilon 06-15-2024 Albumin [Mass/Vol] 3.0 g/dL Low 3.2-5.0 [facility] Comment on above: Order Comment: Comme nts: SPECIMEN #2'TROP' Serial specimen #1, #2 or #3: 2 Performed By: #### L 501.9985, L100.0100, L500.4050, L506.1000, L501.9520, L500.4100 #### [facility] [address] [place], [address] Albumin/Globulin [Mass ratio] 1.1 {ratio} Normal 0.9-2.4 [facility] Comment on above: Order Comment: Comme nts: SPECIMEN #2'TROP' Serial specimen #1, #2 or #3: 2 Performed By: #### L 501.9985, L100.0100, L500.4050, L506.1000, L501.9520, L500.4100 #### [facility] [address] [place], [address] ALK P 50 U/L Normal 45-117 [facility] Comment on above: Order Comment: Comme nts: SPECIMEN #2'TROP' Serial specimen #1, #2 or #3: 2 Performed By: #### L 501.9985, L100.0100, L500.4050, L506.1000, L501.9520, L500.4100 #### [facility] [address] [place], [address] ALT [Catalytic activity/Vol] 7 U/L Low 16-61 [facility] Comment on above: Order Comment: Comme nts: SPECIMEN #2'TROP' Serial specimen #1, #2 or #3: 2 Performed By: #### L 501.9985, L100.0100, L500.4050, L506.1000, L501.9520, L500.4100 #### [facility] [address] [place], [address] AST [Catalytic activity/Vol] 7 U/L Low 15-37 [facility] Comment on above: Order Comment: Comme nts: SPECIMEN #2'TROP' Serial specimen #1, #2 or #3: 2 Performed By: #### L 501.9985, L100.0100, L500.4050, L506.1000, L501.9520, L500.4100 #### [facility] [address] [place], [address] Bilirubin [Mass/Vol] 0.70 mg/dL Normal 0.20-1.00 [facility] Comment on above: Order Comment: Comme nts: SPECIMEN #2'TROP' Serial specimen #1, #2 or #3: 2 Result Comment: For patients on eltrombopag therapy, use of Dimension Phenix TBIL is not recommended. Performed By: #### L 501.9985, L100.0100, L500.4050, L506.1000, L501.9520, L500.4100 #### [facility] [address] [place], [address] BUN/CRE 12.4 RATIO Normal 10-20 [facility] Comment on above: Order Comment: Comme nts: SPECIMEN #2'TROP' Serial specimen #1, #2 or #3: 2 Performed By: #### L 501.9985, L100.0100, L500.4050, L506.1000, L501.9520, L500.4100 #### [facility] [address] [place], [address] CA,Total 8.9 mg/dL Normal 8.5-10.1 [facility] Comment on above: Order Comment: Comme nts: SPECIMEN #2'TROP' Serial specimen #1, #2 or #3: 2 Performed By: #### L 501.9985, L100.0100, L500.4050, L506.1000, L501.9520, L500.4100 #### [facility] [address] [place], [address] Chloride [Moles/Vol] 102 mmol/L Normal 98-107 [facility] Comment on above: Order Comment: Comme nts: SPECIMEN #2'TROP' Serial specimen #1, #2 or #3: 2 Performed By: #### L 501.9985, L100.0100, L500.4050, L506.1000, L501.9520, L500.4100 #### [facility] [address] [place], [address] CO2 [Moles/Vol] 29.0 mmol/L Normal 21.0-32.0 [facility] Comment on above: Order Comment: Comme nts: SPECIMEN #2'TROP' Serial specimen #1, #2 or #3: 2 Performed By: #### L 501.9985, L100.0100, L500.4050, L506.1000, L501.9520, L500.4100 #### [facility] [address] [place], [address] Creatinine [Mass/Vol] 2.25 mg/dL High 0.70-1.30 [facility] Comment on above: Order Comment: Comme nts: SPECIMEN #2'TROP' Serial specimen #1, #2 or #3: 2 Result Comment: The validity of the calculated GFR GFRAA in patients over 70 years has not been determined. Clinical correlation is essential. Performed By: #### L 501.9985, L100.0100, L500.4050, L506.1000, L501.9520, L500.4100 #### [facility] [address] [place], [address] ECRCL 27.67 ml/min Normal [facility] Comment on above: Order Comment: Comme nts: SPECIMEN #2'TROP' Serial specimen #1, #2 or #3: 2 Performed By: #### L 501.9985, L100.0100, L500.4050, L506.1000, L501.9520, L500.4100 #### [facility] [address] [place], [address] EST GFR - AA 36 mL/min Low >60 [facility] Comment on above: Order Comment: Comme nts: SPECIMEN #2'TROP' Serial specimen #1, #2 or #3: 2 Result Comment: Afri can [place] GFR Calc Performed By: #### L 501.9985, L100.0100, L500.4050, L506.1000, L501.9520, L500.4100 #### [facility] [address] [place], [address] GAP 6 Normal 5-15 [facility] Comment on above: Order Comment: Comme nts: SPECIMEN #2'TROP' Serial specimen #1, #2 or #3: 2 Performed By: #### L 501.9985, L100.0100, L500.4050, L506.1000, L501.9520, L500.4100 #### [facility] [address] [place], [address] GFR/1.73 sq M.predicted among non-blacks MDRD (S/P/Bld) [Vol rate/Area] 30 mL/min/{1.73_m2} Low >60 [facility] Comment on above: Order Comment: Comme nts: SPECIMEN #2'TROP' Serial specimen #1, #2 or #3: 2 Result Comment: Non- GFR Calc Performed By: #### L 501.9985, L100.0100, L500.4050, L506.1000, L501.9520, L500.4100 #### [facility] [address] [place], [address] Globulin (S) [Mass/Vol] 2.7 g/dL Normal 2.2-4.2 [facility] Comment on above: Order Comment: Comme nts: SPECIMEN #2'TROP' Serial specimen #1, #2 or #3: 2 Performed By: #### L 501.9985, L100.0100, L500.4050, L506.1000, L501.9520, L500.4100 #### [facility] [address] [place], [address] Glucose [Mass/Vol] 80 mg/dL Normal 74-106 [facility] Comment on above: Order Comment: Comme nts: SPECIMEN #2'TROP' Serial specimen #1, #2 or #3: 2 Performed By: #### L 501.9985, L100.0100, L500.4050, L506.1000, L501.9520, L500.4100 #### [facility] [address] [place], [address] Potassium [Moles/Vol] 3.5 mmol/L Normal 3.5-5.1 [facility] Comment on above: Order Comment: Comme nts: SPECIMEN #2'TROP' Serial specimen #1, #2 or #3: 2 Performed By: #### L 501.9985, L100.0100, L500.4050, L506.1000, L501.9520, L500.4100 #### [facility] [address] [place], [address] Sodium [Moles/Vol] 137 mmol/L Normal 136-145 [facility] Comment on above: Order Comment: Comme nts: SPECIMEN #2'TROP' Serial specimen #1, #2 or #3: 2 Performed By: #### L 501.9985, L100.0100, L500.4050, L506.1000, L501.9520, L500.4100 #### [facility] [address] [place], [address] T PROT 5.7 g/dL Low 6.4-8.2 [facility] Comment on above: Order Comment: Comme nts: SPECIMEN #2'TROP' Serial specimen #1, #2 or #3: 2 Performed By: #### L 501.9985, L100.0100, L500.4050, L506.1000, L501.9520, L500.4100 #### [facility] [address] [place], [address] Urea nitrogen [Mass/Vol] 28 mg/dL High 7-18 [facility] Comment on above: Order Comment: Comme nts: SPECIMEN #2'TROP' Serial specimen #1, #2 or #3: 2 Performed By: #### L 501.9985, L100.0100, L500.4050, L506.1000, L501.9520, L500.4100 #### [facility] [address] [place], [address] Echo Complete W/ Contraston 06-15-2024 Echo Complete W/ Contrast [facility] [address] [place] [address] Echo Complete W/ Contrast 06/15/24 1110 MR#: [id number] Acct: [id number] Name: OLMAN SYED Rep #: [id number] : 1935 [id number] From: David Ashton MD Attending Dr: Dr. Amalia Moncada MD Status: AD M BRITTANY Ordering Dr: Neri Arana DO Date: 06/15/24 Location: U Sex: M C Admitted: 06/15/24 Reason For Study: Near syncope Procedure This was a 2D Doppler, Color Flow transthoracic echocardiogram. The study was technically difficult. Exam performed portable in patient room. Left Ventricle Normal LV size. The left ventricular ejection fraction is 55 %. No regional wall motion abnormalities noted. Right Ventricle Normal RV size. Normal systolic function. Atria Normal left atrium. Normal right atrium. Mitral Valve Normal mitral valve. Tricuspid Valve The tricuspid valve is not well visualized. Aortic Valve Trisinus/trileaflet aortic valve. Mild focal aortic valve calcification. Pulmonic Valve The pulmonic valve is not well visualized. Great Vessels Normal aortic root. The pulmonary artery is normal size. Inferior vena cava collapse with respiration. Pericardium/Pleural No pericardial effusion. Medication Diluted definity 1.5ml given slow IV push to enhance endocardial definition. MMode/2D Measurements Calculations LVIDd: 5.5 cm IVSd: 1.0 cm Ao root diam: 3.5 cm LVIDs: 3.7 cm LVPWd: 1.1 cm RVDd: 3.5 cm FS: 32.7 % LAV(MOD-bp): 59.5 ml LVAd ap4: 36.4 cm2 SV(MOD-sp4): 69.7 ml LAV(MOD-bp) Indexed: 28.7 ml/m2 LVLd ap4: 7.7 cm SI(MOD-sp4): 33.6 ml/m2 LAV(MOD-sp2): 48.7 ml EDV(MOD-sp4): 146.0 ml LAV(MOD-sp4): 66.1 ml EDV(sp4-el): 145.8 ml LVAs ap4: 22.9 cm2 LVLs ap4: 5.9 cm ESV(MOD-sp4): 76.2 ml ESV(sp4-el): 76.0 ml EF(MOD-sp4): 47.8 % EF(sp4-el): 47.8 % SV(sp4-el): 69.8 ml LA A4 area: 23.7 cm2 LA dimension(2D): 4.1 cm RA A4 area: 16.1 cm2 Doppler Measurements Calculations MV E max mitzy: 104.4 cm/sec Ao V2 max: 182.7 cm/sec LV V1 max: 130.5 cm/sec Ao max P.4 mmHg LV V1 max P.8 mmHg Ao V2 mean: 126.4 cm/sec LV V1 mean P.7 mmHg Ao mean P.1 mmHg LV V1 mean: 91.0 cm/sec Ao V2 VTI: 29.6 cm LV V1 VTI: 23.9 cm AV (velocity ratio): 0.81 PA V2 max: 91.6 cm/sec ECHO/Echo Complete W/ Contrast Interpretation Summary Normal LV size. The left ventricular ejection fraction is 55 %. Liver cyst noted. Contrast injection was performed. Compared to previous study, the left ventricular systolic function has improved.. Ordering Physician: Neri Arana Referring Physician: Keron Maciel M.D. Performed By: Mary Westbrook RDCS 06/15/24 1338 Date David Ashton MD CC: Dr. Amalia Moncada MD; Dr. Neri Arana DO; Dr. Keron Maciel MD Date Dictated: 06/15/24 1110 Date Transcribed: 06/15/24 1338 [facility] Nurse: Signed Normal [facility] Emergency Department Summary on 06-15-2024 Emergency Department Summary [facility] Medical Records Department [address] [place] [address] Emergency Department Summary 06/15/24 MR#: [id number] Acct: [id number] Name: OLMAN SYED Rep #: [id number] : 1935 88 From: Helio Corrales DO PCP: Dr. Keron Maciel MD Status:ADM BRITTANY Location: [address] History of Present Illness Chief Complaint: General Illness Informant: patient and family Narrative Narrative: Patient is a 88-year-old male with past medical history of Parkinson's disease diabetes hypertension hyperlipidemia. The patient's son states that they were sitting in the kitchen at the table when he appeared to slump over. He states that he grabbed him to help prevent him from falling and noticed that he was not responding to voice for a few seconds and then when he did he was slurring his speech and did not seem to understand what was going on. The patient's son states he thought his sugar might be low and grab some orange juice and gave him a few sips and then he shortly returned to normal. The patient states he does not remember this event. Roughly 20 minutes later he was getting ready for bed where he had a similar event where he became weak and was slurring his speech and with this happening twice he was brought in for evaluation [facility] Medical History (Updated 06/15/24 @ 06:[address] 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 Obesity History of CVA (cerebrovascular accident) Stroke/cerebrovascular accident Body mass index (BMI) 40.0-44.9, adult GERD (gastroesophageal reflux disease) BPH (benign prostatic hyperplasia) Hypothyroidism Osteoarthritis CKD (chronic kidney disease) stage 3, GFR 30-59 ml/min Debility Iron deficiency anemia Syncope and collapse Right bundle branch block (RBBB) with left anterior fascicular block Premature ventricular contractions Essential (primary) hypertension Vocal cord dysfunction DANYELL (obstructive sleep apnea) Hiatal hernia BMI 40.0-44.9, adult Dyspnea Cough Shortness of breath Obesity Upper respiratory infection Right flank pain Anemia Atherosclerotic heart disease of [place] coronary artery without angina pectoris 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 Palpitations Nonrheumatic tricuspid (valve) insufficiency HLD (hyperlipidemia) Chest pain Appendicitis Benign prostatic hypertrophy GERD (gastroesophageal reflux disease) Nephrolithiasis Diabetes mellitus type 2 in obese Home Medications ???Medication ???Instructions ???Recorded ???Last Taken ???Type cholecalciferol (vitamin D3) 125 5,000 unit PO DAILY vitamin 06/29/15 02/10/20 History mcg (5,000 unit) capsule finasteride 5 mg tablet 5 mg PO DAILY prostate 06/29/15 10/29/21 History aspirin 81 mg tablet,delayed 81 mg PO DAILY heart health 07/24/15 10/29/21 History release acetaminophen 500 mg tablet 1,000 mg (2 x 500 mg) PO Q6H PRN 02/19/20 Unknown Rx PRN Pain Score 1-3/10 Handi cap Placard #1 ea 10/14/20 Unknown Rx vitamins A,C,L-kjcj-tizabr 2,148 1 tab PO BID 12/17/20 Unknown History mcg-113 mg-45 mg-17.4 mg tablet (PreserVision AREDS) pen needle, diabetic 32 gauge x #100 ea 12/25/20 Unknown Rx 1/4 insulin human U-100 NPH-regulr 24 unit subcut QHS diabetes 03/14/23 Unknown History 70-30 mix 100 unit/mL subcutaneous susp clopidogrel 75 mg tablet 75 mg PO DAILY TIA #90 tabs 09/11/23 Unknown Rx amlodipine 5 mg tablet 5 mg PO DAILY BP #90 tabs 09/19/23 Unknown Rx pravastatin 20 mg tablet 20 mg PO DAILY cholesterol #90 tabs 10/03/23 Unknown Rx Compression stockings (10-20) #2 ea 01/04/24 Unknown Rx Left AFO #1 ea 01/04/24 Unknown Rx levothyroxine 50 mcg tablet 50 mcg PO DAILY thyroid #90 tabs 02/01/24 Unknown Rx escitalopram oxalate 10 mg tablet 10 mg PO DAILY #90 tabs 03/05/24 Unknown Rx furosemide 40 mg tablet 40 mg PO DAILY #90 TABLETS 03/05/24 Unknown Rx pantoprazole 40 mg tablet,delayed See Rx Instructions .Route 03/05/24 Unknown Rx release .COMPLEX #90 tabs ranolazine 500 mg tablet,extended 500 mg PO BID #180 tabs 03/12/24 Unknown Rx release,12 hr metformin 500 mg tablet 500 mg PO BIDCM diabetes #180 tabs 03/19/24 Unknown Rx carbidopa 25 mg-levodopa 100 mg See Rx Instructions .Route 03/28/24 Unknown Rx tablet (Sinemet) .COMPLEX #150 tabs fludrocortisone 0.1 mg tablet See Rx Instructions PO .COMPLEX 03/28/24 Unknown Rx #28 tabs isosorbide mononitrate 30 mg 30 mg PO DAILY #90 TABLETS 04/01/24 Unknown Rx tablet,extended release 24 hr cyclobenzaprine 5 mg tablet 5 mg PO BID PRN muscle spasm #20 05/20/24 Unknown Rx tabs ascorbic acid (vitamin C) 1,000 mg 1 g PO DAILY 06/15/24 Unknown History tablet (C-1000) cyanocobalamin (vitamin B-12) 1,000 mcg PO DA (more content not included)... Normal [facility] Folates, (Folic Acid)on 05-20 FOLATES 8.00 ng/mL Normal 3.1-55.4 [facility] Comment on above: Order Comment: Has P atient had X-rays with Contrast this admission? N'TROP' Serial specimen #1, #2 or #3: 1Y Performed By: #### L 501.4020, L501.9100, L501.9520, L505.5000, L506.0250, L500.4100, L503.0105 ####[facility] [address] [place], [place], [id number] H AND P Exam - Hospitaliston 06-15-2024 H&P Exam - Hospitalist [facility] Medical Records Department [address] [place] [address] H P Exam - Hospitalist 06/15/24 0153 MR#: [id number] Acct: [id number] Name: OLMAN SYED Rep #: [id number] : 1935 88 From: Neri Arana DO PCP: Dr. Keron Maciel MD Status:ADM BRITTANY Location: [place] [address] HPI - General General Date of Admission: 06/15/24 Date of Service: 06/15/24 Chief Complaint: Syncope and Slurred Speech x 2. HPI Narrative OLMAN SYED, is a 88 M with a past medical history of essential hypertension; on amlodipine and furosemide, hyperlipidemia; on pravastatin, hypothyroidism; on levothyroxine, remote history of tobacco abuse, obesity; with BMI of 39.6 this admission with DANYELL, DM-2; of unknown control on metformin and NPH 34 units SQ daily and 24 units SQ q. 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, CAD; s/p stent (2015) on ISMO and Ranexa, history of cardiac arrhythmia, history of RBBB with LAFB, history of cardiomyopathy, history of orthostatic hypotension; on fludrocortisone, CKD; stage IIIa, JORY, Parkinson's disease; on Sinemet, history of CVA; with mild cognitive impairment already on Plavix, depression; on escitalopram and trazodone, history of muscle spasms; on as needed cyclobenzaprine, history of B12 deficiency; on oral supplementation, history of vocal cord dysfunction, history of Right CTS, history of appendectomy, history of lymph node biopsy, BPH; on finasteride, GERD; on pantoprazole, history of cervical radiculopathy, and OA; with history of back surgery and chronic low back pain causing impaired gait and mobility on as needed oxycodone who presents to [facility] ER with his family noting syncope and slurred speech. His family informed the ER physician that they were sitting down to dinner when the patient had a sudden loss of consciousness with an episode of slurred speech that lasted for approximately 1 minute and then resolved. They gave him orange juice and he seemed to improve so they tried to take him to bed so he could rest when he had a second similar event so they decided to bring him in for further evaluation and treatment. His blood glucose was noted to be in the normal range with no other complaints related to headache or other focal neurologic deficits. The patient stated that he typically has these type of episodes and a reaction to hypoglycemia but his blood glucose was over 100 mg/dL in both instances today. In the ER he was noted to have a CT scan of the head that was negative for acute pathologic changes that would explain his symptoms with the ER physician suspecting a combination of possible Syncope and TIA in the setting of Recurrent Hypoglycemia and the patient was then admitted to the PCU under observation status for ongoing care for status expected to be less than 2 midnights. [facility] Medical History (Updated 06/15/24 @ 07:[address] 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 Obesity History of CVA (cerebrovascular accident) Stroke/cerebrovascular accident Body mass index (BMI) 40.0-44.9, adult GERD (gastroesophageal reflux disease) BPH (benign prostatic hyperplasia) Hypothyroidism Osteoarthritis CKD (chronic kidney disease) stage 3, GFR 30-59 ml/min Debility Iron deficiency anemia Syncope and collapse Right bundle branch block (RBBB) with left anterior fascicular block Premature ventricular contractions Essential (primary) hypertension Vocal cord dysfunction DANYELL (obstructive sleep apnea) Hiatal hernia BMI 40.0-44.9, adult Dyspnea Cough Shortness of breath Obesity Upper respiratory infection Right flank pain Anemia Atherosclerotic heart disease of [place] coronary artery without angina pectoris 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 Palpitations Nonrheumatic tricuspid (valve) insufficiency HLD (hyperlipidemia) Chest pain Appendicitis Benign prostatic hypertrophy GERD (gastroesophageal reflux disease) Nephrolithiasis Diabetes mellitus type 2 in obese Home Medications ???Medication ???Instructions ???Recorded ???Last Taken ???Type cholecalciferol (vitamin D3) 125 5,000 unit PO DAILY vitamin 06/29/15 02/10/20 History mcg (5,000 unit) capsule finasteride 5 mg tablet 5 mg PO DAILY prostate 06/29/15 10/29/21 History aspirin 81 mg tablet,delayed 81 mg PO DAILY heart health 07/24/15 10/29/21 History release acetaminophen 500 mg tablet 1,000 mg (2 x 500 mg) PO Q6H PRN 02/19/20 Unknown Rx PRN Pain Score 1-3/10 Handi cap Placard #1 ea 10/14/20 Unknown Rx vitamins A,C,M-wqbh-oxdjbr 2,148 1 tab PO BID 12/17/20 Unknown History mcg-113 mg-45 mg-17.4 mg tablet (PreserVision AREDS) pen needle, diabe (more content not included)... Normal [facility] Hemoglobin A1con 06-15-2024 HbA1c (Bld) [Mass fraction] 6.2 % High 3.8-5.6 [facility] Comment on above: Result Comment: Norm al < 5.7 % Prediabetic 5.7 - 6.4 % Diabetic >or= 6.5 % Please note range changes. Performed By: #### L 501.9985, L100.0100, L500.4050, L506.1000, L501.9520, L500.4100 #### [facility] [address] [place], [address] L501.4020on 06-15-2024 TROPONIN-I HS 33 pg/mL Normal 3.0-78.0 [facility] Comment on above: Order Comment: Comme nts: SPECIMEN #3'TROP' Serial specimen #1, #2 or #3: 3 Result Comment: Plea se Note: New Test Units and Gender Specific Reference Ranges. For more information see Policy Stat Procedure Phenix High Sensitivity Troponin (TNIH) and attachments. Performed By: #### L 501.4020 ####[facility] [address] [place], [address] TROPONIN-I HS 31 pg/mL Normal 3.0-78.0 [facility] Comment on above: Order Comment: Comme nts: SPECIMEN #2'TROP' Serial specimen #1, #2 or #3: 2 Result Comment: Plea se Note: New Test Units and Gender Specific Reference Ranges. For more information see Policy Stat Procedure Phenix High Sensitivity Troponin (TNIH) and attachments. Performed By: #### L 501.9985, L100.0100, L500.4050, L506.1000, L501.9520, L500.4100 #### [facility] [address] [place], [address] TROPONIN-I HS 35 pg/mL Normal 3.0-78.0 [facility] Comment on above: Order Comment: Brea chavez had X-rays with Contrast this admission? N'TROP' Serial specimen #1, #2 or #3: 1Y Result Comment: Loly varela Note: New Test Units and Gender Specific Reference Ranges. For more information see Policy Stat Procedure Phenix High Sensitivity Troponin (TNIH) and attachments. Performed By: #### L 501.4020, L501.9100, L501.9520, L505.5000, L506.0250, L500.4100, L503.0105 ####[facility] [address] [place], [address] Lipid Profileon 06-15-2024 Cholesterol [Mass/Vol] 148 mg/dL Normal 200 [facility] Comment on above: Order Comment: Has Manda chavez had X-rays with Contrast this admission? N'TROP' Serial specimen #1, #2 or #3: 1Y Result Comment: <200 mg/dL Desirable 200-240 mg/dL Borderline >240 mg/dL High Risk Performed By: #### L 501.4020, L501.9100, L501.9520, L505.5000, L506.0250, L500.4100, L503.0105 ####[facility] [address] [place], [address] Cholesterol in HDL [Mass/Vol] 46 mg/dL Normal [facility] Comment on above: Order Comment: Has Manda chavez had X-rays with Contrast this admission? N'TROP' Serial specimen #1, #2 or #3: 1Y Result Comment: The drugs N-Acetylcysteine and Metamizole may falsely depress this assay. Reference Range HDL <40 mg/dL Low HDL Cholesterol HDL >or= 60 mg/dL High HDL Cholesterol Performed By: #### L 501.4020, L501.9100, L501.9520, L505.5000, L506.0250, L500.4100, L503.0105 ####[facility] [address] [place], [address] Cholesterol in LDL [Mass/Vol] 64 mg/dL Normal 0-130 [facility] Comment on above: Order Comment: Has Manda chavez had X-rays with Contrast this admission? N'TROP' Serial specimen #1, #2 or #3: 1Y Performed By: #### L 501.4020, L501.9100, L501.9520, L505.5000, L506.0250, L500.4100, L503.0105 ####[facility] [address] [place], [address] Cholesterol in VLDL [Mass/Vol] 38 mg/dL Normal 5-40 [facility] Comment on above: Order Comment: Has Manda chavez had X-rays with Contrast this admission? N'TROP' Serial specimen #1, #2 or #3: 1Y Performed By: #### L 501.4020, L501.9100, L501.9520, L505.5000, L506.0250, L500.4100, L503.0105 ####[facility] [address] [place], [address] Triglyceride [Mass/Vol] 189 mg/dL Normal [facility] Comment on above: Order Comment: Has Manda chavez had X-rays with Contrast this admission? N'TROP' Serial specimen #1, #2 or #3: 1Y Result Comment: The drugs N-Acetylcysteine and Metamizole may falsely depress this assay. Serum Triglycerides Reference Interval Normal <150 mg/dL Borderline high 150 - 199 mg/dL High 200 - 499 mg/dL Very High > or = 500 mg/dL Performed By: #### L 501.4020, L501.9100, L501.9520, L505.5000, L506.0250, L500.4100, L503.0105 ####[facility] [address] [place], [address] Magnesiumon 06-15-2024 Magnesium [Mass/Vol] 1.7 mg/dL Normal 1.6-2.6 [facility] Comment on above: Order Comment: Comme nts: SPECIMEN #2'TROP' Serial specimen #1, #2 or #3: 2 Performed By: #### L 501.9985, L100.0100, L500.4050, L506.1000, L501.9520, L500.4100 #### [facility] [address] [place], [address] Partial Thromboplast Timeon 06-15-2024 aPTT Coag (Bld) [Time] 26.1 s Normal 24.1-36.2 [facility] Comment on above: Performed By: #### L 501.9985, L100.0100, L500.4050, L506.1000, L501.9520, L500.4100 #### [facility] [address] [place], [address] Phosphoruson 06-15-2024 Phosphate [Mass/Vol] 4.3 mg/dL Normal 2.5-4.9 [facility] Comment on above: Order Comment: Comme nts: SPECIMEN #2'TROP' Serial specimen #1, #2 or #3: 2 Performed By: #### L 501.9985, L100.0100, L500.4050, L506.1000, L501.9520, L500.4100 #### [facility] [address] [place], [address] Prothrombin Time w/INRon INR Coag (PPP) [Relative time] 1.2 {INR} Normal [facility] Comment on above: Performed By: #### L 501.9985, L100.0100, L500.4050, L506.1000, L501.9520, L500.4100 #### [facility] [address] [place], [address] PT Coag (PPP) [Time] 15.0 s High 11.7-14.9 [facility] Comment on above: Performed By: #### L 501.9985, L100.0100, L500.4050, L506.1000, L501.9520, L500.4100 #### [facility] [address] [place], [address] Thyroid Stim Hormone (TSH)on 06-15-2024 TSH 3.230 uIU/mL Normal 0.358-3.740 [facility] Comment on above: Order Comment: Has Manda atient had X-rays with Contrast this admission? N'TROP' Serial specimen #1, #2 or #3: 1Y Performed By: #### L 501.4020, L501.9100, L501.9520, L505.5000, L506.0250, L500.4100, L503.0105 ####[facility] [address] [place], [address] Vitamin B12on 06-15-2024 Cobalamin (Vitamin B12) [Mass/Vol] pg/mL High 211-911 [facility] Comment on above: Performed By: #### L 501.4020, L501.9100, L501.9520, L505.5000, L506.0250, L500.4100, L503.0105 ####[facility] [address] [place], [address] 12 Lead EKGon 06-14-2024 12 Lead EKG [facility] Cardiovascular Services [address] [place] [address] 12 Lead EKG 06/15/24 0001 MR#: [id number] Acct: [id number] Name: OLMAN SYED Rep #: [id number] : 1935 88 From: David Ashton MD Attending Dr: Dr. Amalia Moncada MD Status: VALENTE S BRITTANY Ordering Dr: Helio Corrales DO Date: 06/14/24 Location: U Sex: M C Admitted: 06/15/24 Test Reason : LOSS OF CON. Blood Pressure : */* mmHG Vent. Rate : 77 BPM Atrial Rate : 77 BPM P-R Int : 150 ms QRS Dur : 138 ms QT Int : 428 ms P-R-T Axes : 73 -62 47 degrees QTcB Int : 484 ms Sinus rhythm with Premature atrial complexes Right bundle branch block Left anterior fascicular block Bifascicular block Minimal voltage criteria for LVH, may be normal variant ( R in aVL ) Abnormal ECG When compared with ECG of 16-Jul-2023 15:15, No significant change was found Confirmed by GÉNESIS GUTIÉRREZ, DAVID ([id number]), features editor MATTHIEU SEGUNDO ([id number]) on 06/18/2024 9:14:47 AM Referred By: SARA Confirmed By: DAVID ASHTON MD 06/18/24913 Date David Ashton MD CC: Dr. Amalia Moncada MD; Dr. Keron Maciel MD; Helio Corrales DO Signed Normal [facility] Basic Metabolic Profile (BMP )on 06-14-2024 BUN/CRE 11.6 RATIO Normal 10-20 [facility] Comment on above: Performed By: #### L 501.5200, L500.2500 ####[facility] [address] [place], [address] CA,Total 9.5 mg/dL Normal 8.5-10.1 [facility] Comment on above: Performed By: #### L 501.5200, L500.2500 ####[facility] [address] [place], [address] Chloride [Moles/Vol] 102 mmol/L Normal 98-107 [facility] Comment on above: Performed By: #### L 501.5200, L500.2500 ####[facility] [address] [place], [address] CO2 [Moles/Vol] 21.0 mmol/L Normal 21.0-32.0 [facility] Comment on above: Performed By: #### L 501.5200, L500.2500 ####[facility] [address] [place], [address] Creatinine [Mass/Vol] 2.25 mg/dL High 0.70-1.30 [facility] Comment on above: Result Comment: The validity of the calculated GFR GFRAA in patients over 70 years has not been determined. Clinical correlation is essential. Performed By: #### L 501.5200, L500.2500 ####[facility] [address] [place], [address] ECRCL 25.79 ml/min Normal [facility] [facility] Comment on above: Performed By: #### L 501.5200, L500.2500 ####[facility] [address] [place], [address] EST GFR - AA 36 mL/min Low >60 [facility] Comment on above: Result Comment: Afri can [place] GFR Calc Performed By: #### L 501.5200, L500.2500 ####[facility] [address] [place], [address] GAP 14 Normal 5-15 [facility] Comment on above: Performed By: #### L 501.5200, L500.2500 ####[facility] [address] [place], [address] GFR/1.73 sq M.predicted among non-blacks MDRD (S/P/Bld) [Vol rate/Area] 30 mL/min/{1.73_m2} Low >60 [facility] Comment on above: Result Comment: Non- GFR Calc Performed By: #### L 501.5200, L500.2500 ####[facility] [address] [place], [address] Glucose [Mass/Vol] 120 mg/dL High 74-106 [facility] Comment on above: Result Comment: Fast ing Glucose result from 100 to 125 mg/dL suggests IMPAIRED HOMEOSTASIS per A.D.A. criteria. Performed By: #### L 501.5200, L500.2500 ####[facility] [address] [place], [address] Potassium [Moles/Vol] 3.9 mmol/L Normal 3.5-5.1 [facility] Comment on above: Result Comment: Slig ht Hemolysis, Result may be falsely increased. Performed By: #### L 501.5200, L500.2500 ####[facility] [address] [place], [address] Sodium [Moles/Vol] 136 mmol/L Normal 136-145 [facility] Comment on above: Performed By: #### L 501.5200, L500.2500 ####[facility] [address] [place], [address] Urea nitrogen [Mass/Vol] 26 mg/dL High 7-18 [facility] Comment on above: Performed By: #### L 501.5200, L500.2500 ####[facility] [address] [place], [address] Brain/Head without Contrasto n 06-14-2024 Brain/Head without Contrast [facility] Imaging Services [address] [place] [address] Brain/Head without Contrast MR#: [id number] Acct: [id number] Name: OLMAN SYED Rep #: [id number] : 1935 M 88 From: Helio Styles MD PCP: Dr. Keron Maciel MD Status: REG ER Study: Brain/Head without Contrast Date of Exam: 05/20 01/09 Exam# [id number] Ordering Dr: Helio Corrales DO [id number] EXAM: CT HEAD WITHOUT INTRAVENOUS CONTRAST CLINICAL INDICATION: syncope vs TIA TECHNIQUE: Multiple axial images were obtained of the head without intravenous contrast. CTDIvol = ( 44.99 ) mGy, DLP = ( 812.98 ) mGycm This CT exam was performed using one or more of the following dose reduction techniques: automated exposure control, adjustment of the mA and/or kV according to patient size, and/or use of iterative reconstruction technique. COMPARISON: No relevant prior studies available. FINDINGS: BRAIN AND EXTRA-AXIAL SPACES: Mild diffuse parenchymal atrophy and chronic ischemic small vessel white matter disease. No intra- or extra-axial hemorrhage. No evidence of acute infarct. No intracranial mass or mass effect. There is preservation of the loyola/white matter interface. Posterior fossa structures are unremarkable. Ventricles are appropriate for age. No hydrocephalus. Basal cisterns are patent. BONES/JOINTS: Unremarkable. No discrete lytic or blastic abnormalities. SINUSES: Unremarkable as visualized. Clear. MASTOID AIR CELLS: Unremarkable. Clear. ORBITS: Visualized globes, extraocular muscles, optic nerves and retrobulbar fat appear unremarkable. CT/Brain/Head without Contrast IMPRESSION: No acute intracranial pathology. AIDOC was utilized to assist in identifying pertinent positive findings. Electronically Signed: Helio Styles MD at 0:52 EST , CC: Dr. Keron Maciel MD; Helio Corrales DO [facility] Nurse: Signed Normal [facility] Magnesiumon 06-14-2024 Magnesium [Mass/Vol] 1.8 mg/dL Normal 1.6-2.6 [facility] Comment on above: Result Comment: Slig ht Hemolysis, Result may be falsely increased. Performed By: #### L 501.5200, L500.2500 ####[facility] [address] [place], [address] CNOVon 06-06-2024 CNOV Office Visit (PODIWS ) OLMAN SYED ([id number]) 1935 M Date Time Provider Department 06/06/24 9:45 AM BARBIE NOVA During your visit today, we recorded the following information about you: Rosita Garner RN 06/06/2024 10:22 AM Signed Patient presents with: Left Foot - Established Patient, Follow Up, Diabetic Foot Care Right Foot - Established Patient, Follow Up, Diabetic Foot Care Patient presents for follow up diabetic foot/nail care. TRINA 02/29/24 Barbie Nova 06/06/2024 9:56 AM Signed Diabetes Foot Care Instructions When you have diabetes, proper foot care is very important. Poor foot care may lead to amputation of a foot or leg. As a person with diabetes, you are more vulnerable to foot problems, because diabetes can damage your nerves and reduce blood flow to your feet. Here are some diabetes foot care tips to follow: Wash and Dry Your Feet Daily Use mild soaps Use warm water Pat your skin dry; do not rub. Thoroughly dry your feet. After washing, use lotion on your feet to prevent cracking. Do not put lotion between your toes. Examine Your Feet Each Day Check the tops and bottoms of your feet. Have someone else look at your feet if you cannot see them. Check for dry, cracked skin. Look for blisters, cuts, scratches, or other sores. Check for redness, increased warmth, or tenderness when touching any area of your feet. Check for ingrown toenails, corns, and calluses. If you get a blister or sore from your shoes, do not pop it. Apply a bandage and wear a different pair of shoes. Take Care of Your Toenails Cut toenails after bathing, when they are soft. Cut toenails straight across and smooth with a nail file. Avoid cutting into the corners of toes. Do not cut cuticles. If you have neuropathy (or decreased sensation in your feet) a secondary art teacher should always cut your toenails. Be Careful When Exercising Walk and exercise in comfortable shoes. Do not exercise when you have open sores on your feet. Protect Your Feet With Shoes and Socks Never go barefoot. Always protect your feet by wearing shoes or hard-soled slippers or footwear. Avoid shoes with high heels and pointed toes. Avoid shoes that expose your toes or heels (such as open-toed shoes or sandals). These types of shoes increase your risk for injury and potential infections. Try on new footwear with the type of socks you usually wear. Do not wear new shoes for more than an hour at a time. Change your socks daily. Look and feel inside your shoes before putting them on to make sure there are no foreign objects or rough areas. Avoid tight socks. Wear natural-fiber socks (cotton, wool, or a cotton-wool blend). Wear special shoes if your health care provider recommends them. Wear shoes/boots that will protect your feet from various weather conditions (cold, moisture, etc.). Make sure your shoes fit properly. If you have neuropathy (nerve damage), you may not notice that your shoes are too tight. Perform the footwear test described below. Footwear Test Use this simple test to see if your shoes fit correctly: Stand on a piece of paper. (Make sure you are standing and not sitting, because your foot changes shape when you stand.) Trace the outline of your foot. Trace the outline of your shoe. Compare the tracings: Is the shoe too narrow? Is your foot crammed into the shoe? The shoe should be at least 1/2 inch longer than your longest toe and as wide as your foot. Proper Shoe Choices The following types of shoes are best for people with diabetes Closed toes and heels Leather uppers without a seam inside At least 1/2 inch extra space at the end of your longest toe Inside of shoe should be soft with no rough areas Outer sole should be made of stiff material Shoes should be at least as wide as your feet Tips for Foot Care in Diabetes Don't wait to treat a minor foot problem if you have diabetes. Follow your health care provider's guidelines and first aid guidelines. Report foot injuries and infections to your health care provider immediately. Check water temperature with your elbow, not your foot. Do not use a heating pad on your feet. Do not cross your legs. Do not self-treat your corns, calluses, or other foot problems. Go to your health care provider or secondary art teacher to treat these conditions. Barbie Nova 07/20/2024 9:58 PM Addendum Last saw pcp: not in chart Subjective: Patient presents to clinic c/o painful toenails. They state that the nails are especially painful with shoe gear and pressure. Patient states that nails 1-5 b/l are painful. Patient admits to being diabetic. No other pedal complaints at this time. Patient states no change in medications or medical history since last visit. Objective: Patient presents to clinic ambulating in diabetic shoe Vasc: DP and (more content not included)... Normal [facility] MR/BMS.IMBon 05-20-2024 MR/BMS.IMB [facility] [address] [place] [address] OFFICE VISIT Date of Service: 05/20/24 MR#: [id number] Acct: [id number] Name: OLMAN SYED Rep #: [id number] : 1935 Provider: Dr. Keron fonseca MD Age/Sex: 88/M Location: [facility] Status: Signed Intake Vital Signs 04/22/24 15:19 05/20/24 11:21 Height 5 ft 4 in 5 ft 4 in Weight: 230 lb 13 oz 230 lb 8 oz BMI 39.6 39.5 BP 140/76 H 113/68 Blood Pressure Location Lt brachial Lt brachial Position Supine Sitting Respiration 17 16 Pulse 80 78 Pulse Source Monitor Monitor Temp 98.2 F Temp Source Temporal Pulse Oximetry (%) 96 92 Oxygen Delivery Method room air Intake Visit Reasons: Rt Arm Numbness Chief Complaint: rt arm numbness Utility Hand Required: No Accompanied by: Is patient in pain?: Yes (R shoulder) Pain scale (1-10): 4 Allergies lisinopril Allergy (Mild, Verified 05/20/24 11:06) Cough losartan Adverse Reaction (Intermediate, Verified 05/20/24 11:06) Jitters metoprolol Adverse Reaction (Intermediate, Verified 05/20/24 11:06) Jitters pioglitazone HCl (From Actos) Adverse Reaction (Mild, Verified 05/20/24 11:06) Upset Stomach Medications ???Medication ???Instructions ???Recorded ???Confirmed ???Type cholecalciferol (vitamin D3) 125 5,000 unit PO DAILY vitamin 06/29/15 05/20/24 History mcg (5,000 unit) capsule finasteride 5 mg tablet 5 mg PO DAILY prostate 06/29/15 05/20/24 History aspirin 81 mg tablet,delayed 81 mg PO DAILY heart health 07/24/15 05/20/24 History release acetaminophen 500 mg tablet 1,000 mg (2 x 500 mg) PO Q6H PRN 02/19/20 05/20/24 Rx PRN Pain Score 1-3/10 Handi cap Placard #1 ea 10/14/20 05/20/24 Rx vitamins A,C,D-rxtv-ywftkb 2,148 2 tab PO DAILY 12/17/20 05/20/24 History mcg-113 mg-45 mg-17.4 mg tablet (PreserVision AREDS) pen needle, diabetic 32 gauge x #100 ea 12/25/20 05/20/24 Rx 1/4 insulin human U-100 NPH-regulr 50 unit subcut BID diabetes 03/14/23 05/20/24 History 70-30 mix 100 unit/mL subcutaneous susp dextromethorphan-guaif enesin 10 10 ml PO Q8H PRN cough #237 mL 08/10/23 05/20/24 Rx mg-200 mg/5 mL oral liquid (Adult [facility] DM Max) clopidogrel 75 mg tablet 75 mg PO DAILY TIA #90 tabs 09/11/23 05/20/24 Rx amlodipine 5 mg tablet 5 mg PO DAILY BP #90 tabs 09/19/23 05/20/24 Rx pravastatin 20 mg tablet 20 mg PO DAILY cholesterol #90 tabs 10/03/23 05/20/24 Rx Compression stockings (10-20) #2 ea 01/04/24 05/20/24 Rx Left AFO #1 ea 01/04/24 05/20/24 Rx levothyroxine 50 mcg tablet 50 mcg PO DAILY thyroid #90 tabs 02/01/24 05/20/24 Rx escitalopram oxalate 10 mg tablet 10 mg PO DAILY #90 tabs 03/05/24 05/20/24 Rx furosemide 40 mg tablet 40 mg PO DAILY #90 TABLETS 03/05/24 05/20/24 Rx pantoprazole 40 mg tablet,delayed See Rx Instructions .Route 03/05/24 05/20/24 Rx release .COMPLEX #90 tabs ranolazine 500 mg tablet,extended 500 mg PO BID #180 tabs 03/12/24 05/20/24 Rx release,12 hr metformin 500 mg tablet 500 mg PO BIDCM diabetes #180 tabs 03/19/24 05/20/24 Rx carbidopa 25 mg-levodopa 100 mg See Rx Instructions .Route 03/28/24 05/20/24 Rx tablet (Sinemet) .COMPLEX #150 tabs fludrocortisone 0.1 mg tablet See Rx Instructions PO .COMPLEX 03/28/24 05/20/24 Rx #28 tabs isosorbide mononitrate 30 mg 30 mg PO DAILY #90 TABLETS 04/01/24 05/20/24 Rx tablet,extended release 24 hr cyclobenzaprine 5 mg tablet 5 mg PO BID PRN muscle spasm #20 05/20/24 05/20/24 Rx tabs hydrocodone-acetaminop hen 5-325mg 1 tab PO BID PRN pain 7 days #20 05/20/24 05/20/24 Rx 5mg-325mg tabs tramadol 50 mg tablet 50 mg PO BID PRN 05/20/24 05/20/24 History Have you fallen in the past year?: Yes (04/2024, fell in bathroom ) [facility] Medical History (Updated 05/20/24 @ 15:[address] 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 Obesity History of CVA (cerebrovascular accident) Stroke/cerebrovascular accident Body mass index (BMI) 40.0-44.9, adult GERD (gastroesophageal reflux disease) BPH (benign prostatic hyperplasia) Hypothyroidism Osteoarthritis CKD (chronic kidney disease) stage 3, GFR 30-59 ml/min Debility Iron deficiency anemia Syncope and collapse Right bundle branch block (RBBB) with left anterior fascicular block Premature ventricular contractions Essential (primary) hypertension Vocal cord dysfunction DANYELL (obstructive sleep apnea) Hiatal hernia BMI 40.0-44.9, adult Dyspnea Cough Shortness of breath Obesity Upper respiratory infection Right flank pain Anemia Atherosclerotic heart disease of [place] coronary artery without angina pectoris 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 Palpitations Nonrheumat (more content not included)... Normal [facility] CBC W/Diff, Automatedon 11-2 Absolute Lymph 1.31 X10 3/uL Normal 0.83-4.51 [facility] Comment on above: Performed By: #### L 501.9985, L100.0100, L500.4050, L506.1000, L501.9520, L500.4100 #### [facility] [address] [place], [address] Absolute Neut 3.7 X10 3/uL Normal 2.0-7.7 [facility] Comment on above: Performed By: #### L 501.9985, L100.0100, L500.4050, L506.1000, L501.9520, L500.4100 #### [facility] [address] [place], [address] Basophils/100 WBC (Bld) 0.9 % Normal 0-1 [facility] Comment on above: Performed By: #### L 501.9985, L100.0100, L500.4050, L506.1000, L501.9520, L500.4100 #### [facility] [address] [place], [address] Eosinophils/100 WBC (Bld) 8.9 % High 0-5 [facility] Comment on above: Performed By: #### L 501.9985, L100.0100, L500.4050, L506.1000, L501.9520, L500.4100 #### [facility] [address] [place], [address] Erythrocyte distribution width (RBC) [Ratio] 19.1 % High 11.6-14.6 [facility] Comment on above: Performed By: #### L 501.9985, L100.0100, L500.4050, L506.1000, L501.9520, L500.4100 #### [facility] [address] [place], [address] Hematocrit (Bld) [Volume fraction] 32.2 % Low 40-54 [facility] Comment on above: Performed By: #### L 501.9985, L100.0100, L500.4050, L506.1000, L501.9520, L500.4100 #### [facility] [address] [place], [address] Hemoglobin (Bld) [Mass/Vol] 9.9 g/dL Low 13.0-16.5 [facility] Comment on above: Performed By: #### L 501.9985, L100.0100, L500.4050, L506.1000, L501.9520, L500.4100 #### [facility] [address] [place], [address] IG% 0.800 Normal 0.0-0.9 [facility] Comment on above: Result Comment: IG% - Immature Granulocytes (promyelocytes, myelocytes and metamyelocytes) > 1% indicates that a LEFT SHIFT is Present. Performed By: #### L 501.9985, L100.0100, L500.4050, L506.1000, L501.9520, L500.4100 #### [facility] [address] [place], [address] Lymphocytes/100 WBC (Bld) 20.4 % Normal 19-41 [facility] Comment on above: Performed By: #### L 501.9985, L100.0100, L500.4050, L506.1000, L501.9520, L500.4100 #### [facility] [address] [place], [address] MCH (RBC) [Entitic mass] 24.3 pg Low 27.0-32.0 [facility] Comment on above: Performed By: #### L 501.9985, L100.0100, L500.4050, L506.1000, L501.9520, L500.4100 #### [facility] [address] [place], [address] MCHC (RBC) [Mass/Vol] 30.7 g/dL Low 32-36 [facility] Comment on above: Performed By: #### L 501.9985, L100.0100, L500.4050, L506.1000, L501.9520, L500.4100 #### [facility] [address] [place], [address] MCV (RBC) [Entitic vol] 79.1 fL Low 80-94 [facility] Comment on above: Performed By: #### L 501.9985, L100.0100, L500.4050, L506.1000, L501.9520, L500.4100 #### [facility] [address] [place], [address] Monocytes/100 WBC (Bld) 11.5 % High 0-10 [facility] Comment on above: Performed By: #### L 501.9985, L100.0100, L500.4050, L506.1000, L501.9520, L500.4100 #### [facility] [address] [place], [address] Neutrophils/100 WBC (Bld) 57.5 % Normal 47-70 [facility] Comment on above: Performed By: #### L 501.9985, L100.0100, L500.4050, L506.1000, L501.9520, L500.4100 #### [facility] [address] [place], [address] Nucleated RBC (Bld) [#/Vol] 0 10*3/uL Normal 0-5 [facility] Comment on above: Performed By: #### L 501.9985, L100.0100, L500.4050, L506.1000, L501.9520, L500.4100 #### [facility] [address] [place], [address] Platelet mean volume (Bld) [Entitic vol] 8.9 fL Normal 6.2-12.0 [facility] Comment on above: Performed By: #### L 501.9985, L100.0100, L500.4050, L506.1000, L501.9520, L500.4100 #### [facility] [address] [place], [address] Platelets (Bld) [#/Vol] 281 10*3/uL Normal 150-450 [facility] Comment on above: Performed By: #### L 501.9985, L100.0100, L500.4050, L506.1000, L501.9520, L500.4100 #### [facility] [address] [place], [address] RBC (Bld) [#/Vol] 4.07 10*6/uL Low 4.6-6.2 [facility] Comment on above: Performed By: #### L 501.9985, L100.0100, L500.4050, L506.1000, L501.9520, L500.4100 #### [facility] [address] [place], [address] RDW SD 54.7 fl High 35.1-43.9 [facility] Comment on above: Performed By: #### L 501.9985, L100.0100, L500.4050, L506.1000, L501.9520, L500.4100 #### [facility] [address] [place], [address] WBC (Bld) [#/Vol] 6.4 10*3/uL Normal 4.4-11.0 [facility] Comment on above: Performed By: #### L 501.9985, L100.0100, L500.4050, L506.1000, L501.9520, L500.4100 #### [facility] [address] [place], [address] Comprehensive Metabolic Prof ilon 05-09-2024 Albumin [Mass/Vol] 3.8 g/dL Normal 3.2-5.0 [facility] Comment on above: Performed By: #### L 501.9985, L100.0100, L500.4050, L506.1000, L501.9520, L500.4100 #### [facility] [address] [place], [address] Albumin/Globulin [Mass ratio] 1.2 {ratio} Normal 0.9-2.4 [facility] Comment on above: Performed By: #### L 501.9985, L100.0100, L500.4050, L506.1000, L501.9520, L500.4100 #### [facility] [address] [place], [address] ALK P 46 U/L Normal 45-117 [facility] Comment on above: Performed By: #### L 501.9985, L100.0100, L500.4050, L506.1000, L501.9520, L500.4100 #### [facility] [address] [place], [address] ALT [Catalytic activity/Vol] 10 U/L Low 16-61 [facility] Comment on above: Performed By: #### L 501.9985, L100.0100, L500.4050, L506.1000, L501.9520, L500.4100 #### [facility] [address] [place], [address] AST [Catalytic activity/Vol] 6 U/L Low 15-37 [facility] Comment on above: Performed By: #### L 501.9985, L100.0100, L500.4050, L506.1000, L501.9520, L500.4100 #### [facility] [address] [place], [address] Bilirubin [Mass/Vol] 0.70 mg/dL Normal 0.20-1.00 [facility] Comment on above: Result Comment: For patients on eltrombopag therapy, use of Dimension Phenix TBIL is not recommended. Performed By: #### L 501.9985, L100.0100, L500.4050, L506.1000, L501.9520, L500.4100 #### [facility] [address] [place], [address] BUN/CRE 11.9 RATIO Normal 10-20 [facility] Comment on above: Performed By: #### L 501.9985, L100.0100, L500.4050, L506.1000, L501.9520, L500.4100 #### [facility] [address] [place], [address] CA,Total 9.7 mg/dL Normal 8.5-10.1 [facility] Comment on above: Performed By: #### L 501.9985, L100.0100, L500.4050, L506.1000, L501.9520, L500.4100 #### [facility] [address] [place], [address] Chloride [Moles/Vol] 105 mmol/L Normal 98-107 [facility] Comment on above: Performed By: #### L 501.9985, L100.0100, L500.4050, L506.1000, L501.9520, L500.4100 #### [facility] [address] [place], [address] CO2 [Moles/Vol] 25.0 mmol/L Normal 21.0-32.0 [facility] Comment on above: Performed By: #### L 501.9985, L100.0100, L500.4050, L506.1000, L501.9520, L500.4100 #### [facility] [address] [place], [address] Creatinine [Mass/Vol] 1.68 mg/dL High 0.70-1.30 [facility] Comment on above: Result Comment: The validity of the calculated GFR GFRAA in patients over 70 years has not been determined. Clinical correlation is essential. Performed By: #### L 501.9985, L100.0100, L500.4050, L506.1000, L501.9520, L500.4100 #### [facility] [address] [place], [address] EST GFR - AA 50 mL/min Low >60 [facility] Comment on above: Result Comment: Afri can [place] GFR Calc Performed By: #### L 501.9985, L100.0100, L500.4050, L506.1000, L501.9520, L500.4100 #### [facility] [address] [place], [address] GAP 11 Normal 5-15 [facility] Comment on above: Performed By: #### L 501.9985, L100.0100, L500.4050, L506.1000, L501.9520, L500.4100 #### [facility] [address] [place], [address] GFR/1.73 sq M.predicted among non-blacks MDRD (S/P/Bld) [Vol rate/Area] 41 mL/min/{1.73_m2} Low >60 [facility] Comment on above: Result Comment: Non- GFR Calc Performed By: #### L 501.9985, L100.0100, L500.4050, L506.1000, L501.9520, L500.4100 #### [facility] [address] [place], [address] Globulin (S) [Mass/Vol] 3.2 g/dL Normal 2.2-4.2 [facility] Comment on above: Performed By: #### L 501.9985, L100.0100, L500.4050, L506.1000, L501.9520, L500.4100 #### [facility] [address] [place], [address] Glucose [Mass/Vol] 94 mg/dL Normal 74-106 [facility] Comment on above: Performed By: #### L 501.9985, L100.0100, L500.4050, L506.1000, L501.9520, L500.4100 #### [facility] [address] [place], [address] Potassium [Moles/Vol] 3.4 mmol/L Low 3.5-5.1 [facility] Comment on above: Performed By: #### L 501.9985, L100.0100, L500.4050, L506.1000, L501.9520, L500.4100 #### [facility] [address] [place], [address] Sodium [Moles/Vol] 141 mmol/L Normal 136-145 [facility] Comment on above: Performed By: #### L 501.9985, L100.0100, L500.4050, L506.1000, L501.9520, L500.4100 #### [facility] [address] [place], [address] T PROT 7.0 g/dL Normal 6.4-8.2 [facility] Comment on above: Performed By: #### L 501.9985, L100.0100, L500.4050, L506.1000, L501.9520, L500.4100 #### [facility] [address] [place], [address] Urea nitrogen [Mass/Vol] 20 mg/dL High 7-18 [facility] Comment on above: Performed By: #### L 501.9985, L100.0100, L500.4050, L506.1000, L501.9520, L500.4100 #### [facility] [address] [place], [address] Free T3on 05-09-2024 Free T3 [Mass/Vol] 2.5 pg/mL Normal 2.18-3.98 [facility] Comment on above: Performed By: #### L 501.9985, L100.0100, L500.4050, L506.1000, L501.9520, L500.4100 #### [facility] [address] [place], [address] Hemoglobin A1con 05-09-2024 HbA1c (Bld) [Mass fraction] 6.6 % High 3.8-5.6 [facility] Comment on above: Result Comment: Norm al < 5.7 % Prediabetic 5.7 - 6.4 % Diabetic >or= 6.5 % Please note range changes. Performed By: #### L 501.9985, L100.0100, L500.4050, L506.1000, L501.9520, L500.4100 #### [facility] [address] [place], [address] Iron+Iron Binding Capacityon 05-09-2024 Iron [Mass/Vol] 28 ug/dL Low 65-175 [facility] Comment on above: Performed By: #### L 501.9985, L100.0100, L500.4050, L506.1000, L501.9520, L500.4100 #### [facility] [address] [place], [address] IRON SATURATION 6.2 Low 15.0-55.0 [facility] Comment on above: Performed By: #### L 501.9985, L100.0100, L500.4050, L506.1000, L501.9520, L500.4100 #### [facility] [address] [place], [address] TIBC 454 ug/dL High 250-450 [facility] Comment on above: Performed By: #### L 501.9985, L100.0100, L500.4050, L506.1000, L501.9520, L500.4100 #### [facility] [address] [place], [address] Lipid Profileon 05-09-2024 Cholesterol [Mass/Vol] 143 mg/dL Normal 200 [facility] Comment on above: Result Comment: <200 mg/dL Desirable 200-240 mg/dL Borderline >240 mg/dL High Risk Performed By: #### L 501.9985, L100.0100, L500.4050, L506.1000, L501.9520, L500.4100 #### [facility] [address] [place], [address] Cholesterol in HDL [Mass/Vol] 46 mg/dL Normal [facility] Comment on above: Result Comment: The drugs N-Acetylcysteine and Metamizole may falsely depress this assay. Reference Range HDL <40 mg/dL Low HDL Cholesterol HDL >or= 60 mg/dL High HDL Cholesterol Performed By: #### L 501.9985, L100.0100, L500.4050, L506.1000, L501.9520, L500.4100 #### [facility] [address] [place], [address] Cholesterol in LDL [Mass/Vol] 68 mg/dL Normal 0-130 [facility] Comment on above: Performed By: #### L 501.9985, L100.0100, L500.4050, L506.1000, L501.9520, L500.4100 #### [facility] [address] [place], [address] Cholesterol in VLDL [Mass/Vol] 29 mg/dL Normal 5-40 [facility] Comment on above: Performed By: #### L 501.9985, L100.0100, L500.4050, L506.1000, L501.9520, L500.4100 #### [facility] [address] [place], [address] Triglyceride [Mass/Vol] 144 mg/dL Normal [facility] Comment on above: Result Comment: The drugs N-Acetylcysteine and Metamizole may falsely depress this assay. Serum Triglycerides Reference Interval Normal <150 mg/dL Borderline high 150 - 199 mg/dL High 200 - 499 mg/dL Very High > or = 500 mg/dL Performed By: #### L 501.9985, L100.0100, L500.4050, L506.1000, L501.9520, L500.4100 #### [facility] [address] [place], [address] Magnesiumon 05-09-2024 Magnesium [Mass/Vol] 1.8 mg/dL Normal 1.6-2.6 [facility] Comment on above: Performed By: #### L 501.9985, L100.0100, L500.4050, L506.1000, L501.9520, L500.4100 #### [facility] [address] [place], [address] PSA,Total - Annual Screenon 05-09-2024 PSA,TOT SCREEN 1.04 ng/mL Normal 0.00-4.00 [facility] Comment on above: Result Comment: This test was performed using the TPSA assay method for the [employer] chemistry system. Values obtained with different assay methods cannot be used interchangably. When changing PSA assays in the course of monitoring a patient, additional sequential testing should be carried out to confirm baseline values. Performed By: #### L 501.9985, L100.0100, L500.4050, L506.1000, L501.9520, L500.4100 #### [facility] [address] [place], [address] T4 Free Directon 05-09-2024 T4 FREE DIRECT 0.91 ng/dL Normal 0.76-1.46 [facility] Comment on above: Performed By: #### L 501.9985, L100.0100, L500.4050, L506.1000, L501.9520, L500.4100 #### [facility] [address] [place], [address] Thyroid Stim Hormone (TSH)on 05-09-2024 TSH 2.880 uIU/mL Normal 0.358-3.740 [facility] Comment on above: Performed By: #### L 501.9985, L100.0100, L500.4050, L506.1000, L501.9520, L500.4100 #### [facility] [address] [place], [address] Vitamin B12on 05-09-2024 Cobalamin (Vitamin B12) [Mass/Vol] pg/mL High 211-911 [facility] Comment on above: Performed By: #### L 501.9985, L100.0100, L500.4050, L506.1000, L501.9520, L500.4100 #### [facility] [address] [place], [address] Office Visit Reporton 2023 Office Visit Report [facility] [address] [place] [address] OFFICE VISIT Date of Service: 04/22/24 MR#: [id number] Acct: [id number] Patient: OLMAN SYED Rep #: [id number] : 1935 Provider: Dr. Rich calvert MD Age/Sex: 88/M [place] [facility] [place]: Signed Intake Vital Signs 03/28/24 13:50 04/22/24 15:19 04/22/24 15:21 04/22/24 15:21 Height 5 ft 4 in 5 ft 4 in Weight: 224 lb 230 lb 13 oz BMI 38.4 39.6 BP 118/76 140/76 H 138/74 H 120/60 Blood Pressure Location Rt brachial Lt brachial Lt brachial Lt brachial Position Sitting Supine Sitting Standing Respiration 17 17 17 17 Pulse 84 80 75 83 Pulse Source Monitor Monitor Monitor Monitor Temp 98.0 F Temp Source Temporal Pulse Oximetry (%) 98 96 96 95 Oxygen Delivery Method room air room air room air Intake Visit Reasons: orthostatic blood pressure Chief Complaint: Routine f/u Allergies lisinopril Allergy (Mild, Verified 03/28/24 13:55) Cough losartan Adverse Reaction (Intermediate, Verified 03/28/24 13:55) Jitters metoprolol Adverse Reaction (Intermediate, Verified 03/28/24 13:55) Jitters pioglitazone HCl (From Actos) Adverse Reaction (Mild, Verified 03/28/24 13:55) Upset Stomach Have you fallen in the past year?: Yes Nursing Note Patient came into the office for Orthostatic blood pressures Lying 140/76 - 80, - Sitting 138/74 - 75, - Standing 120/60 - 83. The results of the orthostatics were given to Dr. Padgett to review. He stated he wanted the patient to continue the Fludrocortisone 0.1mg every Mon, Mon, Mon, , Mon, and Monday. The patient and his were given this information. His and patient understood and repeated the instructions. Next OV Jul 2024. Assessment and Plan Assessment and Plan (1) Orthostatic hypotension: Status: Acute Clinical Quality Measures Falls Risk Screening/Assistive Devices Have you fallen in the past year?: Yes 04/22/24 1622 Date Rich Grant Signature: Date (if applicable) CC: Normal [facility] Neurology Visit Reporton Neurology Visit Report [facility] [address], [address] [place] [address] OFFICE VISIT Date of Service: 03/28/24 MR#: [id number] Acct: [id number] Name: OLMAN SYED Rep #: [id number] : 1935 Provider: Dr. Rich calvert MD Age/Sex: 88/M Location: [facility] Status: Signed HPI HPI Chief Complaint: Routine f/u Details: Interim History: Olman returns for follow-up. He has a history of hypertension, diabetes mellitus, iron deficiency anemia, hyperlipidemia, obstructive sleep apnea (on CPAP), hiatal hernia, GERD, coronary artery disease status post stent placement, right eye monocular diplopia, macular degeneration, lumbar spinal fusion, hypothyroidism, stage III chronic renal insufficiency and Parkinson's disease. Around 2018, he began to have a tremor in the right hand. Over time, his tremor began affecting both hands and he also developed an intermittent tremor in the lower extremities. His tremor worsened over time and is worse with action. He takes escitalopram for anxiety. He has had slowing of his gait. He ambulates with a rollator. He had had multiple falls including further falls recently. Physical therapy in 2022 was of benefit. His left shoulder pain resolved with physical therapy. He does not experience disequilibrium or vertigo with these falls. He was found to have orthostatic hypotension. Fludrocortisone 0.1mg three times per week was initiated earlier in 2023; he continues to exhibit orthostatic hypotension. He previously had lightheadedness but now denies having lightheadedness. He stated his legs feel weak. He denied having any change in his voice or change in handwriting. He denied difficulty with swallowing. He has had chronic low back pain and right hip pain and had seen a toy painter, Dr. Carmona; a lumbar injection was not of benefit. He subsequently has seen another toy painter, Dr. Saeed. At his last visit earlier in 2023, he states his low back pain resolved however he had coccygeal pain. Carbidopa/levodopa has been of benefit for his tremor and gait, and has been well-tolerated. No worsening in the shuffling component of his gait has been noted recently. His tremor has not produced significant functional impairment He has had memory difficulty since 2019. He has a tendency to forget conversations and appointments and to repeat conversations. He remains independent in basic activities of daily living. He was found to have a B12 deficiency in 2020. A B12 injection caused fatigue that lasted about 3 weeks. He subsequently started an OTC vitamin B12 supplement of 1,000mcg/day. His last vitamin B12 level was normal (06/22/21). No further worsening of his memory has been noted since his visit in September 2022. Per prior discussion, he did not want to take medication for his memory difficulty. In October 2020, he had an episode of right arm and right leg numbness and right arm weakness, which resolved over a 2 week period. This episode was likely due to an ischemic stroke. He did not seek immediate medical attention at the time of the onset of his symptoms. On subsequent outpatient medical evaluation, a head CT was performed and he was found to have a left basal ganglia infarct that was new compared to his prior head CT from 2019. He takes aspirin 81mg daily and clopidogrel 75mg daily; he was on these medications at the time his stroke in October 2020 occurred. He has not had further symptoms suggestive of a stroke since his stroke in October 2020. Prior use of citalopram worsened his tremor. Mini-Mental status exam score was 25/30 in December 2020 and 30/30 in September 2022. Physical Exam: Neuro: The patient is awake; he is mildly bradyphrenic; no rigidity is noted in the wrists; a slight tremor is noted in the hands when arms are extended; motor strength is 5/5 in the quadriceps bilaterally and right foot dorsiflexors and 4-/5 in the left foot dorsiflexors Heart: Regular rate and rhythm Neck: No bruits Supplemental Info Lipid profile (01/20/2020): Unremarkable. EKG (02/07/2020): Sinus rhythm with premature atrial complexes; right bundle branch block; left anterior fascicular block; bifascicular block. Abnormal EKG. Cardiac echo (02/08/2020): The estimated ejection fraction is 40-45 %. Mildly dilated left ventricle. Trivial mitral valve insufficiency. Trivial tricuspid valve insufficiency. No pericardial effusion. Ferritin, iron (02/09/2020): Ferritin 16 (low), iron 39 (low). B12, folate (02/11/2020): B12 161 (low) Head CT (10/30/2020): There is mild cerebral atrophy with widening of the extra-axial spaces and ventricular dilatation. There are areas of decreased attenuation within the white matter tracts of the supratentorial brain, consistent with microvascular disease changes. I suspect a new subacute lacunar infarct in the left basal ganglia. Normal brainstem. Normal cerebellum. There is (more content not included)... Normal [facility] Pulmonary Visit Reporton Pulmonary Visit Report [facility] [address] [place] [address] OFFICE VISIT Date of Service: 03/27/24 MR#: [id number] Acct: [id number] Name: OLMAN SYED Rep #: [id number] : 1935 Provider: DENISE Sherman Age/Sex: 88/M [place] [facility] [place] Status: Signed Assessment and Plan Assessment and Plan (1) DANYELL (obstructive sleep apnea): Status: Chronic (2) Obesity: Status: Chronic Qualifiers: Obesity type: due to excess calories Obesity classification: adult class 2 (BMI 35 - 39.9) Serious obesity comorbidity presence: with serious comorbidity Body mass index: BMI 38.0-38.9 Qualified Code(s): E66.812 - Obesity, class 2; E66.01 - Morbid (severe) obesity due to excess calories; Z68.38 - Body mass index [BMI] 38.0-38.9, adult Plan He is using and benefiting from Pap therapy. No indication for titration study at this time. Continue to encourage weight loss. Contact the office for any new or worsening symptoms in the meantime. Follow-up in 1 year. I asked the patient if he would like to come back in 6 months, per the patient's request he would like to come back annually but is agreeable to contacting office if there are any new or worsening symptoms in the meantime. HPI 1 Y FU Chief Complaint: Sleep apnea HPI Comments Details: This patient presents to the office today for annual follow-up of his obstructive sleep apnea. He is ambulatory with the use of a wheeled walker. He is currently on room air. He was he is accompanied today by his . He has not been seen in the ED or urgent care for any respiratory illnesses since his last office visit. He has not required any antibiotics or prednisone for any breathing problems. He denies any difficulty with shortness of breath. He reports of occasional dry cough. He denies any sputum production or hemoptysis. He has not had any wheezing, chest tightness, chest pain or palpitations. He also denies any fever, chills or body aches. He reports waking up feeling rested. He is having difficulty with mask leaks and dry mouth. He is not requiring naps. He is not falling asleep unintentionally. He is not having excessive nocturia. Compliance report for the past 30 days shows 100% compliance with an average use of 10 hours and 50 minutes per night. Current setting is 16/12 cmH2O with a residual AHI 10.8 events per hour. Leaks do appear to be occurring regularly, however this is not new. Intake Vital Signs 03/22/23 10:35 03/07/24 15:37 03/14/24 13:57 03/27/24 07:52 Height 5 ft 3 in 5 ft 4 in 5 ft 4 in 5 ft 4 in Weight: 224 lb 225 lb BMI 38.4 38.6 BP 115/72 137/77 H Blood Pressure Location Lt brachial Lt brachial Position Sitting Sitting Respiration 18 Pulse 68 76 Pulse Source Monitor Monitor Temp 98.4 F 96.0 F L Temperature Source Temporal Artery Pulse Oximetry (%) 94 96 Oxygen Delivery Method room air room air Intake Visit Reasons: 1 Y FU Chief Complaint: Follow up DME Vendor: Merrill Accompanied by: Allergies lisinopril Allergy (Mild, Verified 03/27/24 11:54) Cough losartan Adverse Reaction (Intermediate, Verified 03/27/24 11:54) Jitters metoprolol Adverse Reaction (Intermediate, Verified 03/27/24 11:54) Jitters pioglitazone HCl (From Actos) Adverse Reaction (Mild, Verified 03/27/24 11:54) Upset Stomach Medications ???Medication ???Instructions ???Recorded ???Confirmed ???Type cholecalciferol (vitamin D3) 125 5,000 unit PO DAILY vitamin 06/29/15 03/27/24 History mcg (5,000 unit) capsule finasteride 5 mg tablet 5 mg PO DAILY prostate 06/29/15 03/27/24 History aspirin 81 mg tablet,delayed 81 mg PO DAILY heart health 07/24/15 03/27/24 History release acetaminophen 500 mg tablet 1,000 mg (2 x 500 mg) PO Q6H PRN 02/19/20 03/27/24 Rx PRN Pain Score 1-3/10 Handi cap Placard #1 ea 10/14/20 03/27/24 Rx vitamins A,C,S-rvaj-bbgxxz 2,148 2 tab PO DAILY 12/17/20 03/27/24 History mcg-113 mg-45 mg-17.4 mg tablet (PreserVision AREDS) pen needle, diabetic 32 gauge x #100 ea 12/25/20 03/27/24 Rx 1/4 insulin human U-100 NPH-regulr 50 unit subcut BID diabetes 03/14/23 03/27/24 History 70-30 mix 100 unit/mL subcutaneous susp isosorbide mononitrate 30 mg 30 mg PO DAILY Ask Dr #90 tabs 04/12/23 03/27/24 Rx tablet,extended release 24 hr trazodone 50 mg tablet 25 mg (1/2 x 50 mg) PO QHS PRN 07/24/23 03/27/24 Rx sleep #30 tabs dextromethorphan-guaif enesin 10 10 ml PO Q8H PRN cough #237 mL 08/10/23 03/27/24 Rx mg-200 mg/5 mL oral liquid (Adult [facility] DM Max) clopidogrel 75 mg tablet 75 mg PO DAILY TIA #90 tabs 09/11/23 03/27/24 Rx amlodipine 5 mg tablet 5 mg PO DAILY BP #90 tabs 09/19/23 03/27/24 Rx pravastatin 20 mg tablet 20 mg PO DAILY cholesterol #90 tabs 10/03/23 03/27/24 (more content not included)... Normal [facility] Cardiology Visit Reporton Cardiology Visit Report [facility] [address] [place] [address] OFFICE VISIT Date of Service: 03/14/24 MR#: [id number] Acct: [id number] Name: OLMAN SYED Rep #: [id number] : 1935 Provider: NEERAJ Scott Age/Sex: 88/M [place] [facility] [place] Status: Signed HPI [facility] History of Present Illness Details: OLMAN SYED, is a 88 M who presents to the office today for a follow up. He has a history of coronary artery disease status post angioplasty and stenting of his left anterior descending artery in 2016. He also has a history of hypertension hyperlipidemia and Parkinson's. He underwent a heart cath in 10/2021 for concerns over his SOB, this demonstrated diffuse coronary artery disease with no evidence of high-grade stenosis noted.??? Previously placed stents are noted to be patent. He does not have any chest pain but does have SOB from his hiatal hernia. He does have issues with his back and hip and does see pain management. Intake Vital Signs 03/14/23 13:48 03/07/24 15:37 03/14/24 13:56 03/14/24 13:57 Height 5 ft 3 in 5 ft 4 in 5 ft 4 in 5 ft 4 in Weight: 226 lb BMI 38.7 BP 123/68 H Blood Pressure Location Lt brachial Position Sitting Respiration 18 Pulse 78 Pulse Source Monitor Pulse Oximetry (%) 95 Intake Visit Reasons: 1 Y FU Utility Hand Required: No Is patient in pain?: No Allergies lisinopril Allergy (Mild, Verified 03/14/24 13:59) Cough losartan Adverse Reaction (Intermediate, Verified 03/14/24 13:59) Jitters metoprolol Adverse Reaction (Intermediate, Verified 03/14/24 13:59) Jitters pioglitazone HCl (From Meeps) Adverse Reaction (Mild, Verified 03/14/24 13:59) Upset Stomach Medications ???Medication ???Instructions ???Recorded ???Confirmed ???Type cholecalciferol (vitamin D3) 125 5,000 unit PO DAILY vitamin 06/29/15 03/14/24 History mcg (5,000 unit) capsule finasteride 5 mg tablet 5 mg PO DAILY prostate 06/29/15 03/14/24 History aspirin 81 mg tablet,delayed 81 mg PO DAILY heart health 07/24/15 03/14/24 History release acetaminophen 500 mg tablet 1,000 mg (2 x 500 mg) PO Q6H PRN 02/19/20 03/14/24 Rx PRN Pain Score 1-3/10 Elizabeth Figueroa #1 ea 10/14/20 03/07/24 Rx vitamins A,C,D-xdwd-uksmde 2,148 2 tab PO DAILY 12/17/20 03/14/24 History mcg-113 mg-45 mg-17.4 mg tablet (PreserVision AREDS) pen needle, diabetic 32 gauge x #100 ea 12/25/20 03/07/24 Rx 1/4 insulin human U-100 NPH-regulr 50 unit subcut BID diabetes 03/14/23 03/14/24 History 70-30 mix 100 unit/mL subcutaneous susp isosorbide mononitrate 30 mg 30 mg PO DAILY Ask Dr #90 tabs 04/12/23 03/14/24 Rx tablet,extended release 24 hr trazodone 50 mg tablet 25 mg (1/2 x 50 mg) PO QHS PRN 07/24/23 03/14/24 Rx sleep #30 tabs dextromethorphan-guaif enesin 10 10 ml PO Q8H PRN cough #237 mL 08/10/23 03/14/24 Rx mg-200 mg/5 mL oral liquid (Adult [facility] DM Max) clopidogrel 75 mg tablet 75 mg PO DAILY TIA #90 tabs 09/11/23 03/14/24 Rx amlodipine 5 mg tablet 5 mg PO DAILY BP #90 tabs 09/19/23 03/14/24 Rx pravastatin 20 mg tablet 20 mg PO DAILY cholesterol #90 tabs 10/03/23 03/14/24 Rx metformin 1,000 mg tablet 500 mg (1/2 x 1,000 mg) PO BIDCM 01/01/24 03/14/24 Rx diabetes #180 tabs Compression stockings (10-20) #2 ea 01/04/24 03/07/24 Rx Left AFO #1 ea 01/04/24 03/07/24 Rx carbidopa 25 mg-levodopa 100 mg See Rx Instructions .Route 01/04/24 03/14/24 Rx tablet (Sinemet) .COMPLEX #150 tabs fludrocortisone 0.1 mg tablet 0.1 mg PO 3XW #14 tabs 01/04/24 03/14/24 Rx levothyroxine 50 mcg tablet 50 mcg PO DAILY thyroid #90 tabs 02/01/24 03/14/24 Rx escitalopram oxalate 10 mg tablet 10 mg PO DAILY #90 tabs 03/05/24 03/14/24 Rx furosemide 40 mg tablet 40 mg PO DAILY #90 TABLETS 03/05/24 03/14/24 Rx pantoprazole 40 mg tablet,delayed See Rx Instructions .Route 03/05/24 03/14/24 Rx release .COMPLEX #90 tabs ranolazine 500 mg tablet,extended 500 mg PO BID #180 tabs 03/12/24 03/14/24 Rx release,12 hr Have you fallen in the past year?: Yes (left side gives out, has fallen several times) [facility] Medical History Visit for suture removal Acute otitis media, left 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 Normal [facility] MR/[facility]MS.IMBon 03-07-2024 MR/BMS.B [facility] [address] [place] [address] OFFICE VISIT Date of Service: 03/07/24 MR#: [id number] Acct: [id number] Name: OLMAN SYED Rep #: [id number] : 1935 Provider: Dr. Keron fonseca MD Age/Sex: 88/M Location: [facility] Status: Signed Intake Vital Signs 09/14/23 15:11 01/18/24 14:11 03/07/24 15:37 Height 5 ft 4 in 5 ft 4 in 5 ft 4 in Weight: 224 lb BMI 38.4 BP 115/72 Blood Pressure Location Lt brachial Position Sitting Pulse 68 Pulse Source Monitor Temp 98.4 F Temp Source Temporal Pulse Oximetry (%) 94 Oxygen Delivery Method room air Intake Visit Reasons: 6 M FU Utility Hand Required: No Accompanied by: Is patient in pain?: Yes (Back) Pain scale (1-10): 6 Allergies lisinopril Allergy (Mild, Verified 03/07/24 15:36) Cough losartan Adverse Reaction (Intermediate, Verified 03/07/24 15:36) Jitters metoprolol Adverse Reaction (Intermediate, Verified 03/07/24 15:36) Jitters pioglitazone HCl (From Actos) Adverse Reaction (Mild, Verified 03/07/24 15:36) Upset Stomach Medications ???Medication ???Instructions ???Recorded ???Confirmed ???Type cholecalciferol (vitamin D3) 125 5,000 unit PO DAILY vitamin 06/29/15 03/07/24 History mcg (5,000 unit) capsule finasteride 5 mg tablet 5 mg PO DAILY prostate 06/29/15 03/07/24 History aspirin 81 mg tablet,delayed 81 mg PO DAILY heart health 07/24/15 03/07/24 History release acetaminophen 500 mg tablet 1,000 mg (2 x 500 mg) PO Q6H PRN 02/19/20 03/07/24 Rx PRN Pain Score 1-3/10 Handi catrina Stevensonard #1 ea 10/14/20 03/07/24 Rx vitamins A,C,P-okhu-tbmkfs 2,148 2 tab PO DAILY 12/17/20 03/07/24 History mcg-113 mg-45 mg-17.4 mg tablet (PreserVision AREDS) pen needle, diabetic 32 gauge x #100 ea 12/25/20 03/07/24 Rx 1/4 ranolazine 500 mg tablet,extended 500 mg PO BID #180 tabs 03/06/23 03/07/24 Rx release,12 hr insulin human U-100 NPH-regulr 50 unit subcut BID diabetes 03/14/23 03/07/24 History 70-30 mix 100 unit/mL subcutaneous susp isosorbide mononitrate 30 mg 30 mg PO DAILY Ask Dr #90 tabs 04/12/23 03/07/24 Rx tablet,extended release 24 hr trazodone 50 mg tablet 25 mg (1/2 x 50 mg) PO QHS PRN 07/24/23 03/07/24 Rx sleep #30 tabs dextromethorphan-guaif enesin 10 10 ml PO Q8H PRN cough #237 mL 08/10/23 03/07/24 Rx mg-200 mg/5 mL oral liquid (Adult [facility] DM Max) clopidogrel 75 mg tablet 75 mg PO DAILY TIA #90 tabs 09/11/23 03/07/24 Rx amlodipine 5 mg tablet 5 mg PO DAILY BP #90 tabs 09/19/23 03/07/24 Rx pravastatin 20 mg tablet 20 mg PO DAILY cholesterol #90 tabs 10/03/23 03/07/24 Rx metformin 1,000 mg tablet 500 mg (1/2 x 1,000 mg) PO BIDCM 01/01/24 03/07/24 Rx diabetes #180 tabs Compression stockings (10-20) #2 ea 01/04/24 03/07/24 Rx Left AFO #1 ea 01/04/24 03/07/24 Rx carbidopa 25 mg-levodopa 100 mg See Rx Instructions .Route 01/04/24 03/07/24 Rx tablet (Sinemet) .COMPLEX #150 tabs fludrocortisone 0.1 mg tablet 0.1 mg PO 3XW #14 tabs 01/04/24 03/07/24 Rx levothyroxine 50 mcg tablet 50 mcg PO DAILY thyroid #90 tabs 02/01/24 03/07/24 Rx escitalopram oxalate 10 mg tablet 10 mg PO DAILY #90 tabs 03/05/24 03/07/24 Rx furosemide 40 mg tablet 40 mg PO DAILY #90 TABLETS 03/05/24 03/07/24 Rx pantoprazole 40 mg tablet,delayed See Rx Instructions .Route 03/05/24 03/07/24 Rx release .COMPLEX #90 tabs Have you fallen in the past year?: Yes [facility] Medical History Visit for suture removal Acute otitis media, left 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 Obesity History of CVA (cerebrovascular accident) Stroke/cerebrovascular accident Body mass index (BMI) 40.0-44.9, adult GERD (gastroesophageal reflux disease) BPH (benign prostatic hyperplasia) Hypothyroidism Osteoarthritis CKD (chronic kidney disease) stage 3, GFR 30-59 ml/min Debility Iron deficiency anemia Syncope and collapse Right bundle branch block (RBBB) with left anterior fascicular block Premature ventricular contractions Essential (primary) hypertension Vocal cord dysfunction DANYELL (obstructive sleep apnea) Hiatal hernia BMI 40.0-44.9, adult Dyspnea Cough Shortness of breath Obesity Upper respiratory infection Right flank pain Anemia Atherosclerotic heart disease of [place] coronary artery without angina pectoris 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 Palpitations Nonrheumatic tricuspid (valve) insufficiency HLD (hyperlipidemia) Chest pain Appendicitis Benign prostatic hypertrophy GERD (gastroesophageal reflux disease) Nephrolithiasis Diabetes mellitus type 2 in obese Surgical History History of right and left heart catheterization (07/02/18) History of coronary artery stent placement (more content not included)... Normal [facility] CNOVon 02-29-2024 CNOV Office Visit (PODIWS ) OLMAN SYED ([id number]) 1935 M Date Time Provider Department 02/29/24 1:30 PM BARBIE NOVA PODIWS During your visit today, we recorded the following information about you: Rosita Garner, NANCI 02/29/2024 2:01 PM Signed Patient presents with: Left Foot - Established Patient, Follow Up, Diabetic Foot Check Right Foot - Established Patient, Follow Up, Diabetic Foot Check Patient presents for follow up diabetic foot/nail care. Due for diabetic foot exam. TRINA 11/16/23 Barbie Nova 02/29/2024 2:01 PM Signed Last time saw pcp: not in chart Subjective: Patient presents to clinic c/o painful toenails. They state that the nails are especially painful with shoe gear and pressure. Patient states that nails 1-5 b/l are painful. Patient admits to being diabetic. Patient denies any burning, tingling or numbness in feet. No other pedal complaints at this time. Patient states no change in medications or medical history since last visit. Objective: Patient presents to clinic ambulating in [facility] Vasc: DP and PT pulses are palpable bilateral. CFT is less than 5 seconds bilateral. Skin temperature is warm to cool proximal to distal bilateral. There is mild edema or varicosities noted. Neuro: Protective sensation is intact to the foot and toes when tested with the 5.07 SWM bilateral. Vibratory sensation is decreased at the hallux IPJ bilateral. The hallux is downgoing bilateral. Derm: Nails 1-5 b/l are painful, discolored-yellow, thick, crumbly, dystrophic and with subungal debris. Skin is of normal turgor, texture and hair growth is present bilateral. There are no hyperkeratosis, ulcerations, scars, verruca or other lesions noted. Prior callus are now resovled Ortho: Muscle strength is 5/5 for all pedal groups tested. Ankle joint DF is decreased with the knee extended with no pain or crepitus noted. 1st MPJ ROM is decreased bilateral. Assessment: (B35.1) Onychomycosis (primary encounter diagnosis) (M79.675) Pain in toe of left foot (M79.674) Pain in toe of right foot (E11.42) Diabetic polyneuropathy associated with type 2 diabetes mellitus (HCC) Plan: Patient was seen and evaluated. Nails 1-5 bilateral were debrided in length and thickness. Patient was instructed on the continued importance of diabetic foot care along with proper diet and keeping their blood sugar under control to prevent complications. Stressed the importance of avoiding barefoot walking, wearing good shoes. Await the arrival of diabetic shoes and afo. Patient is to RTC in 3-4 months. Barbie Nova DPM Referring Provider: BARBIE NOVA [[id number]] Allergies As of Date: 02/29/2024 Noted Allergy Reaction ACTOS (PIOGLITAZONE HCL) 2006 Comments: abdomenal pain Date Reviewed: 02/29/2024 Reviewed by: Rosita Garner RN - Fully Assessed Reason for Visit: Established Patient [175] Follow Up [171] Diabetic Foot Check [762] Established Patient [175] Follow Up [171] Diabetic Foot Check [762] Primary Visit Diagnosis:Onychomycosi s [B35.1] Other Visit Diagnoses:Pain in toe of left foot [M79.675] Pain in toe of right foot [M79.674] Diabetic polyneuropathy associated with type 2 diabetes mellitus (HCC) [E11.42] Prescriptions as of 02/29/2024 - MEDICATION, NON-DATABASE Zinc/vitamin C daily - predniSONE (DELTASONE) 10 mg tablet Take 4 tabs daily for 3 days, then 2 tabs daily for 3 days, then 1 tab daily for 3 days with food. - albuterol HFA (PROVENTIL HFA, VENTOLIN HFA) 90 mcg/actuation inhaler Inhale 2-4 Puffs as instructed every 4 hours as needed for wheezing/shortness of breath. - pantoprazole DR (PROTONIX) 40 mg tablet Take 1 tablet by mouth once daily. - clopidogrel (PLAVIX) 75 mg tablet Take 1 tablet by mouth once daily. - losartan (COZAAR) 100 mg tablet Take 1 tablet by mouth once daily. - isosorbide mononitrate ER (IMDUR) 30 mg 24 hr tablet Take 1 tablet by mouth once daily. - levothyroxine (SYNTHROID) 50 mcg tablet Take 1 tablet by mouth once daily. - pravastatin (PRAVACHOL) 20 mg tablet Take 1 tablet by mouth once daily. - tamsulosin (FLOMAX) 0.4 mg Take 1 capsule by mouth daily at bedtime. - insulin NPH-insulin regular injection (HumuLIN, NovoLIN 70/30) 48 units SQ ac breakfast and 40 units SQ ac supper - carbidopa-levodopa (SINEMET) 10-100 mg per tablet Take 1 tablet by mouth twice daily. - citalopram hydrobromide (CELEXA) 10 mg tablet Take 1 tablet by mouth once daily. - vit A/vit C/vit E/zinc/copper (PRESERVISION AREDS ORAL) Take 1 tablet by mouth once daily. - Hydrochlorothiazide 12.5 mg capsule Take 1 capsule by mouth once daily. - capsaicin (ZOSTRIX-HP) 0.075 % topical cream Apply 1 application to affected area three times daily as needed (pain). - albuterol HFA (PROVENTIL HFA, VENTOLIN HFA) 90 mcg/actuation inhaler Inhale 2 (more content not included)... Normal [facility] Re-Evaluation - PT (1)on Re-Evaluation - PT (1) [facility] Physical Therapy [facility] [address] [place] [address]. [address] [place] [address] / REEVALUATION / MEDICARE RECERTIFICATION PHYSICAL THERAPY MR#: [id number] Acct: [id number] Name: BARRYOLMAN Rep #: [id number] : 1935 88 From: Maureen Retana [facility] Referring Dr.: Dr. Keron Maciel MD Status:REG RCR Insurance: [facility] SELF PAY INSURANCE Re-Evaluation Intro: Dr. Keron Maciel MD, It has been my pleasure to treat OLMAN SYED over the last 11 visits for PD, Polyneuropathy, falls, vestibular. Please see the progress note below for an update on the physical therapy plan of care! Subjective Subjective: The therapy makes him worse. His breathing is getting worse due to his hiatal hernia and they can't do surgery for it. He will probably go home and take a pain pill. He sees the Dr in 1.5 weeks. Objective Objective/Function: MMT: R hip flex 9.5 and L 4.7 R knee ext 19 and L 19.7 R knee flex 18.5 and L 16.9. (strength has improved) Pt did not have to stop and catch his breath to get back to the treatment area and he had to do that on eval. Plan Plan Plan: Pt wants to hold his chart right now until after his back injection and until he talks to the Dr. At this point PT is making him worse. HEP: Seated heel and toe raises, LAQ Balance/Gait/Functiona l tests Balance/Special Test Scores Lower Extremity Functional Score: 21 Goals Goals Goal 1:: I HEP Goal Time Frame: 8-12 Weeks Goal 2:: Be able to walk back to the treatment room with a rolling walker with SBA with more upright posture and not having to stop to catch his breath. Goal Time Frame: 8-12 Weeks Goal Progress: Progressing Goal 3:: Be able to get out of a car with 50% more ease Goal Time Frame: 8-12 Weeks Goal Progress: Not Progressing Goal 4:: Increase LE strength (at the time of the eval: LE MMT: R hip flex 5.4 and L 3.9 R knee ext 14.9 and L 13.6 R knee flex 12.1 and L 10#). Goal Time Frame: 8-12 Weeks Goal 5:: Be able to stand unsupported X 1 min with horizontal head turns Goal Time Frame: 8-12 Weeks Goal Progress: Progressing Anticipated Interventions Anticipated Interventions Patient/Client Instruction: Educate patient on: Condition and Plan of Care For the Purpose of:: To decrease pain, To increase ROM, To improve nutrient delivery to tissue, To increase oxygenation perfusion, To improve muscle performance and motor function, To improve ability to perform ADL's, To improve performance and independence with ADL's, To improve ability of physical actions for home/community/work/le isure, To improve gait and locomotor functions, To improve health of tissue, To decrease soft tissue restriction, To increase flexibility/ROM, To improve endurance, To improve balance and To improve safety with gait Therapeutic Exercise to Include: Strength training, Endurance training, Balance training, Body mechanics, Postural training, Flexibilty training, Gait and locomotor training, Neuromotor development, Active ROM and Dynamic Lumbar Stabilization For the Purpose of:: To increase ROM, To improve muscle performance and motor function, To improve ability to perform ADL's, To increase tolerance to activity/condition/pos ition, To improve performance and independence with ADL's, To decrease level of supervision to perform tasks, To improve ability of physical actions for home/community/work/le isure, To improve gait and locomotor functions, To improve health of tissue, To decrease soft tissue restriction, To increase flexibility/ROM, To improve endurance, To improve balance and To improve safety with gait Functional Training to Include: Gait training For the Purpose of:: To improve gait and locomotor functions and To improve safety with gait Re-Evaluation Ending Re-evaluation ending: Please do not hesitate to contact me at [phone] by phone or if you have questions or concerns regarding this new plan of care! Sincerely, Maureen Retana, FELISA 02/26/24 1522 CC: Dr. Keron Maciel MD Signed For Medicare only, by signing this I certify the plan of care. Physicians Signature Date Normal [facility] Inital Evaluation (1) - PTon 01-19-2024 Inital Evaluation (1) - PT [facility] Physical Therapy [address] [place] [address] / REHABILITATION SERVICES INITIAL EVALUATION MR#: [id number] Acct: [id number] Name: OLMAN SYED Rep #: [id number] : 1935 88 From: Maureen ROBERTO Referring Dr.: Dr. Keron Maciel MD Status: R EG RCR Insurance: [facility] SELF PAY INSURANCE Patient's Visit Information Visit Information Visit Information: OLMAN SYED is a 88 year old M referred to Physical Therapy by Dr. Keron Maciel MD with a diagnosis of PD, Polyneuropathy, falls, vestibular. Date of Evaluation: 01/19/24 Physical Therapist: FELISA Zaragoza Visit Plan Frequency: 2x /Week Duration: 3 Months Plan: 2X/ week for 12 weeks for progressive walking, strengthening, balance activities, gait mechanics, car mechanics with HEP. Big issue at this point is the patients SOB on exertion. HEP: Seated heel and toe raises, LAQ Subjective Subjective: Pt reports that he is weak all over. He can not get in and out of the car very good and can not walk steps. He always uses the walker. He fell 3 weeks ago. [facility] and got out of the car and down he went. The neighbor nasim got him up and then he fell again and got 7 stiches in his head and 3 weeks before that he got 8 stitches in his head. When he stands up he gets a little dizzy. He now knows that he needs to get up slowly and stand there for a few minutes before he walks. His legs gave out and he had no control. He has some freezing episodes where his feet do not want to move. He is on PD meds. He has no dizziness any other time other than if he stands up too fast. He feels that his legs were wiped out after Rehab over at [facility] and thinks that is partially why he fell. He is not on oxygen at home but he is on a CPAP. He gets up every 2-3 hours to go to the bathroom. He is sleeping in a bed. He sometimes has trouble rolling over. He has steps going into his home and has to watch them. He has 2 railings but has to be careful. He still drives and lives with his . His bed and bathroom are all on the first floor. He was diagnosed 3 years ago with PD. He reports that he has feeling in his feet. He naps a lot. He is not doing too much exercises at home. He will get a shot from pain management on . Pain back pain: Pain Intensity (Out of 10): 3 Objective Objective: Gait: walks with a rolling walker with shorter strides and arms out in front and flexed trunk. Very SOB walking back to the treatment room and had to stop 3 times to catch his breath on the way back to the treatment room. Sit to stand: Able to get up on first attempt using B arms LE MMT: R hip flex 5.4 and L 3.9 R knee ext 14.9 and L 13.6 R knee flex 12.1 and L 10# Heel and toe raises standing at the walker: pt struggled with raising his toes (almost no ROM) but able to raise heels 1/2 normal ROM Pt is able to stand unsupported for 15 seconds with walker in close reach. pt very SOB today on exhertion and was very tired from just walking back to treatment room Balance/Special Test Scores Lower Extremity Functional Score: 15 Goals Goal 1:: I HEP Goal Time Frame: 8-12 Weeks Goal 2:: Be able to walk back to the treatment room with a rolling walker with SBA with more upright posture and not having to stop to catch his breath. Goal Time Frame: 8-12 Weeks Goal 3:: Be able to get out of a car with 50% more ease Goal Time Frame: 8-12 Weeks Goal 4:: Increase LE strength (at the time of the eval: LE MMT: R hip flex 5.4 and L 3.9 R knee ext 14.9 and L 13.6 R knee flex 12.1 and L 10#). Goal Time Frame: 8-12 Weeks Goal 5:: Be able to stand unsupported X 1 min with horizontal head turns Goal Time Frame: 8-12 Weeks Rehabilitation Potential Rehabilitation Potential: Good Anticipated Interventions Patient/Client Instruction: Educate patient on: Condition and Plan of Care For the Purpose of:: To decrease pain, To increase ROM, To improve nutrient delivery to tissue, To increase oxygenation perfusion, To improve muscle performance and motor function, To improve ability to perform ADL's, To improve performance and independence with ADL's, To improve ability of physical actions for home/community/work/le isure, To improve gait and locomotor functions, To improve health of tissue, To decrease soft tissue restriction, To increase flexibility/ROM, To improve endurance, To improve balance and To improve safety with gait Therapeutic Exercise to Include: Strength training, Endurance training, Balance training, Body mechanics, Postural training, Flexibilty training, Gait and locomotor training, Neuromotor development, Active ROM and Dynamic Lumbar Stabilization For the Purpose of:: To increase ROM, To improve muscle performance and motor function, To improve ability to perform ADL (more content not included)... Normal [facility] Office Visit Reporton 2023 Office Visit Report [facility] [address] [place] [address] OFFICE VISIT Date of Service: 01/18/24 MR#: [id number] Acct: [id number] Patient: OLMAN SYED Rep #: [id number] : 1935 Provider: Dr. Rich calvert MD Age/Sex: 88/M Location: [facility] Status: Signed with Addenda ADDENDUM by Dr. Rich Padgett MD on 01/18/24 at 1725 Assessment Plan (1) Orthostatic hypotension: 01/18/24 1725 Date Rich Padgett MD cc: * Signed Intake Vital Signs 01/04/24 09:01 01/18/24 14:11 01/18/24 14:13 01/18/24 14:14 Height 5 ft 4 in 5 ft 4 in Weight: 224 lb 225 lb 6 oz BMI 38.4 38.7 BP 136/70 H 140/70 H 138/72 H 128/68 H Blood Pressure Location Lt brachial Rt brachial Rt brachial Rt brachial Position Sitting Supine Sitting Standing Respiration 16 18 18 18 Pulse 85 75 73 74 Pulse Source Monitor Monitor Monitor Monitor Temp 97.7 F L Temp Source Temporal Pulse Oximetry (%) 95 95 96 98 Oxygen Delivery Method room air room air room air room air Intake Visit Reasons: ORTHOSTATIC BLOOD PRESSURE CHECK Chief Complaint: Scalp lacteration suture removal Allergies lisinopril Allergy (Mild, Verified 01/04/24 09:06) Cough losartan Adverse Reaction (Intermediate, Verified 01/04/24 09:06) Jitters metoprolol Adverse Reaction (Intermediate, Verified 01/04/24 09:06) Jitters pioglitazone HCl (From Actos) Adverse Reaction (Mild, Verified 01/04/24 09:06) Upset Stomach Have you fallen in the past year?: Yes Nursing Note Patient came into office for orthostatic blood pressures. lying 140/70 sitting 183/72 and standing 128/68. Patient stated his dizziness has improved but occasionally he still has it. not as frequent. Information given to Dr. Padgett. Dr. Padgett stated he wants Olman to continue on his Fludrocortisone. Assessment and Plan Plan Details Additional Comments: Orthostatic blood pressures noted. No change in his fludrocortisone dose (0.1 mg 3 times per week to be taken in the morning) will be made. Clinical Quality Measures Falls Risk Screening/Assistive Devices Have you fallen in the past year?: Yes 01/18/24 1724 Date Rich Padgett MD Cosign Signature: Date (if applicable) CC: Normal [facility] L/S Spine Comp/w Bending Vie wson 01-10-2024 L/S Spine Comp/w Bending Views [facility] Imaging Services [address] [place] [address] L/S Spine Comp/w Bending Views MR#: [id number] Acct: [id number] Name: OLMAN SYED Rep #: [id number] : 1935 M 88 From: Marc martins MD PCP: Dr. Keron Maciel MD Status: REG CLI Study: L/S Spine Comp/w Bending Views Date of Exam: 0 01/10/24 Exam# [id number] Ordering Dr: Geo Saeed MD [id number] INDICATION: M54.17 EXAMINATION/TECHNIQUE: X-RAY - XR Spine Lumbar Comp W/ Bending Min 6 Views COMPARISON: Prior study dated: 02/12/2020 FINDINGS: VERTEBRAE: There is posterior fusion hardware in place from L2 to L5. Hardware is intact. No fracture. Grade 2 anterolisthesis of L5 on S1 appears progressed from the 2019 study. There is no evidence of instability on flexion or extension. Preservation of the normal lumbar lordosis. Facet arthropathy at the upper lumbar spine. Levoscoliosis. DISCS: Disc space narrowing at L1-L2. This is increased from prior with associated endplate osteophytes. INCLUDED ABDOMEN: Included bowel gas pattern is non-obstructive. RAD/L/S Spine Comp/w Bending Views IMPRESSION: No evidence of instability. Intact posterior fusion hardware L2-L5. Increased grade 2 anterolisthesis of L5 on S1 when compared to the 2019 study. Electronically Signed: Marc Mckeon MD at 16:43 EDT Reading Location ID and State: [address] [place] [address] Tel , Service support , CC: Dr. Geo Saeed MD; Dr. Keron Maciel MD [facility] Nurse: Signed Normal [facility] Pelvis without IV Contraston 01-05-2024 Pelvis without IV Contrast [facility] Imaging Services [address] [place] [address] Pelvis without IV Contrast MR#: [id number] Acct: [id number] Name: OLMAN SYED Rep #: [id number] : 1935 M 88 From: Devante Dunlap MD PCP: Dr. Keron Maciel MD Status: REG CLI Study: Pelvis without IV Contrast Date of Exam: 01/04 Exam# [id number] Ordering Dr: RISHI RAYMOND [id number] STUDY: CT PELVIS WITHOUT CONTRAST REASON FOR EXAM: Male, 88 years old. PAIN IN LEFT HIP RADIATION DOSAGE (If Supplied By Facility): CTDIvol = ( 28.21 ) mGy, DLP = ( 924.60 ) mGycm TECHNIQUE: Transaxial imaging of the pelvis was performed without oral contrast, and without intravenous administration of contrast material. Individualized dose optimization techniques were used for this CT. COMPARISON: None. FINDINGS: Normal urinary bladder. Normal visualized small intestine. There are multiple colonic diverticula of the sigmoid colon consistent with chronic diverticulosis. There is no pelvic fluid. There is no pelvic mass lesion or lymphadenopathy. There are prostatic calcifications. Normal visualized pelvic arteries. Normal abdominal wall. Status post transpedicular fixation in the lower lumbar spine. Mild joint space narrowing of both hip joints consistent with mild arthrosis. CT/Pelvis without IV Contrast IMPRESSION: Mild bilateral hip arthrosis. Electronically Signed: Devante Dunlap MD at 19:20 EDT , CC: RISHI RAYMOND; Dr. Keron Maciel MD [facility] Nurse: Signed Normal [facility] Neurology Visit Reporton Neurology Visit Report [facility] [address], [address] [place] [address] OFFICE VISIT Date of Service: 01/04/24 MR#: [id number] Acct: [id number] Name: KARLEENESTOROLMAN LOPEZ Rep #: [id number] : 1935 Provider: Dr. Rich calvert MD Age/Sex: 88/M [place] [facility] Status: Signed HPI HPI Chief Complaint: Routine f/u Details: Interim History: Olman returns for follow-up. He has a history of hypertension, diabetes mellitus, iron deficiency anemia, hyperlipidemia, obstructive sleep apnea (on CPAP), hiatal hernia, GERD, coronary artery disease status post stent placement, right eye monocular diplopia, macular degeneration, lumbar spinal fusion, hypothyroidism, stage III chronic renal insufficiency and Parkinson's disease. Around 2018, he began to have a tremor in the right hand. Over time, his tremor began affecting both hands and he also developed an intermittent tremor in the lower extremities. His tremor worsened over time and is worse with action. He takes escitalopram for anxiety. He has had slowing of his gait. He ambulates with a rollator. He had had multiple falls including further falls recently. Physical therapy in 2022 was of benefit. His left shoulder pain resolved with physical therapy. He does not experience disequilibrium or vertigo with these falls. He has lightheadedness. He states his legs feel weak. He denied having any change in his voice or change in handwriting. He denied difficulty with swallowing. He has had chronic low back pain and right hip pain and had seen a toy painter, Dr. Carmona; a lumbar injection was not of benefit. He now sees another toy painter, Dr. Saeed. He now states that he does not have low back pain presently but does have coccygeal pain. Carbidopa/levodopa has been of benefit for his tremor and gait, and has been well-tolerated. No worsening in the shuffling component of his gait has been noted recently. His tremor has not produced significant functional impairment He has had memory difficulty since 2019. He has a tendency to forget conversations and appointments and to repeat conversations. He remains independent in basic activities of daily living. He has been able to drive without difficulty. Mini-Mental status exam score was 25/30 in December 2020. He was found to have a B12 deficiency in 2020. A B12 injection caused fatigue that lasted about 3 weeks. He subsequently started an OTC vitamin B12 supplement of 1,000mcg/day. His last vitamin B12 level was normal (06/22/21). No further worsening of his memory has been noted since his visit in September 2022. Per prior discussion, he did not want to take medication for his memory difficulty. In October 2020, he had an episode of right arm and right leg numbness and right arm weakness, which resolved over a 2 week period. This episode was likely due to an ischemic stroke. He did not seek immediate medical attention at the time of the onset of his symptoms. On subsequent outpatient medical evaluation, a head CT was performed and he was found to have a left basal ganglia infarct that was new compared to his prior head CT from 2019. He takes aspirin 81mg daily and clopidogrel 75mg daily; he was on these medications at the time his stroke in October 2020 occurred. Prior use of citalopram worsened his tremor. Mini-Mental status exam score was 25/30 in December 2020 and 30/30 in September 2022. Physical Exam: Neuro: The patient is awake; he is mildly bradyphrenic; no rigidity is noted in the wrists, a right hand tremor is noted; he exhibits a right abducens palsy; motor strength is 5/5 in the right quadriceps and right foot dorsiflexors and 5-/5 in the left quadriceps and 4-/5 in the left foot dorsiflexors HEENT: left tympanic membrane is not well visualized due to cerumen Heart: Regular rate and rhythm Neck: No bruits Supplemental Info Lipid profile (01/20/2020): Unremarkable. EKG (02/07/2020): Sinus rhythm with premature atrial complexes; right bundle branch block; left anterior fascicular block; bifascicular block. Abnormal EKG. Cardiac echo (02/08/2020): The estimated ejection fraction is 40-45 %. Mildly dilated left ventricle. Trivial mitral valve insufficiency. Trivial tricuspid valve insufficiency. No pericardial effusion. Ferritin, iron (02/09/2020): Ferritin 16 (low), iron 39 (low). B12, folate (02/11/2020): B12 161 (low) Head CT (10/30/2020): There is mild cerebral atrophy with widening of the extra-axial spaces and ventricular dilatation. There are areas of decreased attenuation within the white matter tracts of the supratentorial brain, consistent with microvascular disease changes. I suspect a new subacute lacunar infarct in the left basal ganglia. Normal brainstem. Normal cerebellum. There is no intracranial hemorrhage. There are no findings of an acute ischemic infarction. Atherosclerotic calcification of the cavernou (more content not included)... Normal [facility] MR/BMS.IMBon 12-28-2023 MR/BMS.IMB [facility] [address] [place] [address] OFFICE VISIT Date of Service: 12/28/23 MR#: [id number] Acct: [id number] Name: OLMAN SYED Rep #: [id number] : 1935 Provider: Dr. Keron fonseca MD Age/Sex: 88/M Location: [facility] Status: Signed Intake Vital Signs 12/19/23 16:18 12/20/23 14:43 Height 5 ft 4 in 5 ft 4 in Intake Visit Reasons: Stitches Removal Chief Complaint: Scalp lacteration suture removal Utility Hand Required: No Accompanied by: Is patient in pain?: Yes (buttock) Pain scale (1-10): 7 Allergies lisinopril Allergy (Mild, Verified 12/28/23 13:40) Cough losartan Adverse Reaction (Intermediate, Verified 12/28/23 13:40) Jitters metoprolol Adverse Reaction (Intermediate, Verified 12/28/23 13:40) Jitters pioglitazone HCl (From Actos) Adverse Reaction (Mild, Verified 12/28/23 13:40) Upset Stomach Medications ???Medication ???Instructions ???Recorded ???Confirmed ???Type cholecalciferol (vitamin D3) 125 5,000 unit PO DAILY vitamin 06/29/15 12/28/23 History mcg (5,000 unit) capsule finasteride 5 mg tablet 5 mg PO DAILY prostate 06/29/15 12/28/23 History aspirin 81 mg tablet,delayed 81 mg PO DAILY heart health 07/24/15 12/28/23 History release acetaminophen 500 mg tablet 1,000 mg (2 x 500 mg) PO Q6H PRN 02/19/20 12/28/23 Rx PRN Pain Score 1-3/10 Handi catrina Figueroa #1 ea 10/14/20 12/28/23 Rx vitamins A,C,F-nxcn-ewhynz 2,148 2 tab PO DAILY 12/17/20 12/28/23 History mcg-113 mg-45 mg-17.4 mg tablet (PreserVision AREDS) pen needle, diabetic 32 gauge x #100 ea 12/25/20 12/28/23 Rx 1/4 levothyroxine 50 mcg tablet 50 mcg PO DAILY thyroid #90 tabs 02/07/23 12/28/23 Rx furosemide 40 mg tablet 40 mg PO DAILY Fluid retention #90 02/28/23 12/28/23 Rx tabs ranolazine 500 mg tablet,extended 500 mg PO BID #180 tabs 03/06/23 12/28/23 Rx release,12 hr escitalopram oxalate 10 mg tablet 10 mg PO DAILY #90 tabs 03/08/23 12/28/23 Rx insulin human U-100 NPH-regulr 50 unit subcut BID diabetes 03/14/23 12/28/23 History 70-30 mix 100 unit/mL subcutaneous susp pantoprazole 40 mg tablet,delayed See Rx Instructions .Route 03/15/23 12/28/23 Rx release .COMPLEX #90 tabs isosorbide mononitrate 30 mg 30 mg PO DAILY Ask Dr #90 tabs 04/12/23 12/28/23 Rx tablet,extended release 24 hr trazodone 50 mg tablet 25 mg (1/2 x 50 mg) PO QHS PRN 07/24/23 12/28/23 Rx sleep #30 tabs carbidopa 25 mg-levodopa 100 mg See Rx Instructions .Route 07/27/23 12/28/23 Rx tablet (Sinemet) .COMPLEX #150 tabs dextromethorphan-guaif enesin 10 10 ml PO Q8H PRN cough #237 mL 08/10/23 12/28/23 Rx mg-200 mg/5 mL oral liquid (Adult [facility]-Tussin DM Max) clopidogrel 75 mg tablet 75 mg PO DAILY TIA #90 tabs 09/11/23 12/28/23 Rx amlodipine 5 mg tablet 5 mg PO DAILY BP #90 tabs 09/19/23 12/28/23 Rx metformin 1,000 mg tablet 500 mg (1/2 x 1,000 mg) PO BIDCM 09/25/23 12/28/23 Rx diabetes #180 tabs pravastatin 20 mg tablet 20 mg PO DAILY cholesterol #90 tabs 10/03/23 12/28/23 Rx tramadol 50 mg tablet 50 mg PO Q12H PRN Pain Score 12/28/23 12/28/23 Rx 4-5/10 30 days #30 tabs Have you fallen in the past year?: Yes [facility] Medical History (Updated 12/28/23 @ 14:[address] Keron Maciel MD) Visit for suture removal Acute otitis media, left 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 Obesity History of CVA (cerebrovascular accident) Stroke/cerebrovascular accident Body mass index (BMI) 40.0-44.9, adult GERD (gastroesophageal reflux disease) BPH (benign prostatic hyperplasia) Hypothyroidism Osteoarthritis CKD (chronic kidney disease) stage 3, GFR 30-59 ml/min Debility Iron deficiency anemia Syncope and collapse Right bundle branch block (RBBB) with left anterior fascicular block Premature ventricular contractions Essential (primary) hypertension Vocal cord dysfunction DANYELL (obstructive sleep apnea) Hiatal hernia BMI 40.0-44.9, adult Dyspnea Cough Shortness of breath Obesity Upper respiratory infection Right flank pain Anemia Atherosclerotic heart disease of [place] coronary artery without angina pectoris 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 Palpitations Nonrheumatic tricuspid (valve) insufficiency HLD (hyperlipidemia) Chest pain Appendicitis Benign prostatic hypertrophy GERD (gastroesophageal reflux disease) Nephrolithiasis Diabetes mellitus type 2 in obese Surgical History History of right and left heart catheterization (07/02/18) History of coronary artery stent placement (07/01/15) History of left heart catheterization (11/01/21) History of lymph node biopsy History of appendectomy History of back surgery Family History Mother CAD (coronary artery disease) CVA (ce (more content not included)... Normal [facility] Basic Metabolic Profile (BMP )on 12-19-2023 BUN/CRE 11.6 RATIO Normal 10-20 [facility] Comment on above: Performed By: #### L 501.9985, L100.0100, L500.4050, L506.1000, L501.9520, L500.4100 #### [facility] [address] [place], [address] CA,Total 9.6 mg/dL Normal 8.5-10.1 [facility] Comment on above: Performed By: #### L 501.9985, L100.0100, L500.4050, L506.1000, L501.9520, L500.4100 #### [facility] [address] [place], [address] Chloride [Moles/Vol] 102 mmol/L Normal 98-107 [facility] Comment on above: Performed By: #### L 501.9985, L100.0100, L500.4050, L506.1000, L501.9520, L500.4100 #### [facility] [address] [place], [address] CO2 [Moles/Vol] 24.0 mmol/L Normal 21.0-32.0 [facility] Comment on above: Performed By: #### L 501.9985, L100.0100, L500.4050, L506.1000, L501.9520, L500.4100 #### [facility] [address] [place], [address] Creatinine [Mass/Vol] 1.98 mg/dL High 0.70-1.30 [facility] Comment on above: Result Comment: The validity of the calculated GFR GFRAA in patients over 70 years has not been determined. Clinical correlation is essential. Performed By: #### L 501.9985, L100.0100, L500.4050, L506.1000, L501.9520, L500.4100 #### [facility] [address] [place], [address] ECRCL 30.18 ml/min Normal [facility] Comment on above: Performed By: #### L 501.9985, L100.0100, L500.4050, L506.1000, L501.9520, L500.4100 #### [facility] [address] [place], [address] EST GFR - AA 41 mL/min Low >60 [facility] Comment on above: Result Comment: Afri can [place] GFR Calc Performed By: #### L 501.9985, L100.0100, L500.4050, L506.1000, L501.9520, L500.4100 #### [facility] [address] [place], [address] GAP 12 Normal 5-15 [facility] Comment on above: Performed By: #### L 501.9985, L100.0100, L500.4050, L506.1000, L501.9520, L500.4100 #### [facility] [address] [place], [address] GFR/1.73 sq M.predicted among non-blacks MDRD (S/P/Bld) [Vol rate/Area] 34 mL/min/{1.73_m2} Low >60 [facility] Comment on above: Result Comment: Non- GFR Calc Performed By: #### L 501.9985, L100.0100, L500.4050, L506.1000, L501.9520, L500.4100 #### [facility] [address] [place], [address] Glucose [Mass/Vol] 132 mg/dL High 74-106 [facility] Comment on above: Result Comment: Fast ing Glucose result greater than or equal to 126 mg/dL suggests DIABETES MELLITUS per A.D.A. criteria. Performed By: #### L 501.9985, L100.0100, L500.4050, L506.1000, L501.9520, L500.4100 #### [facility] [address] [place], [address] Potassium [Moles/Vol] 4.1 mmol/L Normal 3.5-5.1 [facility] Comment on above: Performed By: #### L 501.9985, L100.0100, L500.4050, L506.1000, L501.9520, L500.4100 #### [facility] [address] [place], [address] Sodium [Moles/Vol] 138 mmol/L Normal 136-145 [facility] Comment on above: Performed By: #### L 501.9985, L100.0100, L500.4050, L506.1000, L501.9520, L500.4100 #### [facility] [address] [place], [address] Urea nitrogen [Mass/Vol] 23 mg/dL High 7-18 [facility] Comment on above: Performed By: #### L 501.9985, L100.0100, L500.4050, L506.1000, L501.9520, L500.4100 #### [facility] [address] [place], [address] Brain/Head without Contrasto n 12-19-2023 Brain/Head without Contrast [facility] Imaging Services [address] [place] [address] Brain/Head without Contrast MR#: [id number] Acct: [id number] Name: OLMAN SYED Rep #: [id number] : 1935 M 88 From: Geo Simeon MD PCP: Dr. Keron Maciel MD Status: PRE ER Study: Brain/Head without Contrast Date of Exam: 08/12 Exam# [id number] Ordering Dr: Caleb Cristina MD [id number] STUDY: CT BRAIN WITHOUT CONTRAST REASON FOR EXAM: Male, 88 years old. trauma RADIATION DOSAGE (If Supplied By Facility): CTDIvol = ( 44.99 ) mGy, DLP = ( 779.24 ) mGycm TECHNIQUE: Transaxial CT imaging of the brain was performed without administration of intravenous contrast material. Individualized dose optimization techniques were used for this CT. COMPARISON: No relevant priors. FINDINGS: There is hemorrhage in the scalp overlying the occiput however there is no associated acute skull fracture . Calcific plaquing of the cavernous carotids Mild atrophy and periventricular white matter ischemic changes.. Normal basal ganglia and thalami. Normal brainstem. Normal cerebellum. There is no intracranial hemorrhage. There are no findings of an acute ischemic infarction. Normal visualized paranasal sinuses. Postsurgical changes of the orbits CT/Brain/Head without Contrast IMPRESSION: Soft tissue hemorrhage in the scalp without evidence for associated skull fracture or acute intracranial bleed Electronically Signed: Geo Simeon MD at 17:28 EDT Reading Location ID and State: [address] [place] [address] Tel , Service support , CC: Dr. Caleb Cristina MD; Dr. Keron Maciel MD [facility] Nurse: Signed Normal [facility] CBC W/Diff, Automatedon 07-0 2-2023 Absolute Lymph 1.14 X10 3/uL Normal 0.83-4.51 [facility] Comment on above: Performed By: #### L 501.9985, L100.0100, L500.4050, L506.1000, L501.9520, L500.4100 #### [facility] [address] [place], [address] Absolute Neut 3.0 X10 3/uL Normal 2.0-7.7 [facility] Comment on above: Performed By: #### L 501.9985, L100.0100, L500.4050, L506.1000, L501.9520, L500.4100 #### [facility] [address] [place], [address] Basophils/100 WBC (Bld) 0.8 % Normal 0-1 [facility] Comment on above: Performed By: #### L 501.9985, L100.0100, L500.4050, L506.1000, L501.9520, L500.4100 #### [facility] [address] [place], [address] Eosinophils/100 WBC (Bld) 4.6 % Normal 0-5 [facility] Comment on above: Performed By: #### L 501.9985, L100.0100, L500.4050, L506.1000, L501.9520, L500.4100 #### [facility] [address] [place], [address] Erythrocyte distribution width (RBC) [Ratio] 16.2 % High 11.6-14.6 [facility] Comment on above: Performed By: #### L 501.9985, L100.0100, L500.4050, L506.1000, L501.9520, L500.4100 #### [facility] [address] [place], [address] Hematocrit (Bld) [Volume fraction] 35.1 % Low 40-54 [facility] Comment on above: Performed By: #### L 501.9985, L100.0100, L500.4050, L506.1000, L501.9520, L500.4100 #### [facility] [address] [place], [address] Hemoglobin (Bld) [Mass/Vol] 11.3 g/dL Low 13.0-16.5 [facility] Comment on above: Performed By: #### L 501.9985, L100.0100, L500.4050, L506.1000, L501.9520, L500.4100 #### [facility] [address] [place], [address] IG% 0.800 Normal 0.0-0.9 [facility] Comment on above: Result Comment: IG% - Immature Granulocytes (promyelocytes, myelocytes and metamyelocytes) > 1% indicates that a LEFT SHIFT is Present. Performed By: #### L 501.9985, L100.0100, L500.4050, L506.1000, L501.9520, L500.4100 #### [facility] [address] [place], [address] Lymphocytes/100 WBC (Bld) 22.8 % Normal 19-41 [facility] Comment on above: Performed By: #### L 501.9985, L100.0100, L500.4050, L506.1000, L501.9520, L500.4100 #### [facility] [address] [place], [address] MCH (RBC) [Entitic mass] 28.8 pg Normal 27.0-32.0 [facility] Comment on above: Performed By: #### L 501.9985, L100.0100, L500.4050, L506.1000, L501.9520, L500.4100 #### [facility] [address] [place], [address] MCHC (RBC) [Mass/Vol] 32.2 g/dL Normal 32-36 [facility] Comment on above: Performed By: #### L 501.9985, L100.0100, L500.4050, L506.1000, L501.9520, L500.4100 #### [facility] [address] [place], [address] MCV (RBC) [Entitic vol] 89.3 fL Normal 80-94 [facility] Comment on above: Performed By: #### L 501.9985, L100.0100, L500.4050, L506.1000, L501.9520, L500.4100 #### [facility] [address] [place], [address] Monocytes/100 WBC (Bld) 11.2 % High 0-10 [facility] Comment on above: Performed By: #### L 501.9985, L100.0100, L500.4050, L506.1000, L501.9520, L500.4100 #### [facility] [address] [place], [address] Neutrophils/100 WBC (Bld) 59.8 % Normal 47-70 [facility] Comment on above: Performed By: #### L 501.9985, L100.0100, L500.4050, L506.1000, L501.9520, L500.4100 #### [facility] [address] [place], [address] Nucleated RBC (Bld) [#/Vol] 0 10*3/uL Normal 0-5 [facility] Comment on above: Performed By: #### L 501.9985, L100.0100, L500.4050, L506.1000, L501.9520, L500.4100 #### [facility] [address] [place], [address] Platelet mean volume (Bld) [Entitic vol] 9.0 fL Normal 6.2-12.0 [facility] Comment on above: Performed By: #### L 501.9985, L100.0100, L500.4050, L506.1000, L501.9520, L500.4100 #### [facility] [address] [place], [address] Platelets (Bld) [#/Vol] 292 10*3/uL Normal 150-450 [facility] Comment on above: Performed By: #### L 501.9985, L100.0100, L500.4050, L506.1000, L501.9520, L500.4100 #### [facility] [address] [place], [address] RBC (Bld) [#/Vol] 3.93 10*6/uL Low 4.6-6.2 [facility] Comment on above: Performed By: #### L 501.9985, L100.0100, L500.4050, L506.1000, L501.9520, L500.4100 #### [facility] [address] [place], [address] RDW SD 53.1 fl High 35.1-43.9 [facility] Comment on above: Performed By: #### L 501.9985, L100.0100, L500.4050, L506.1000, L501.9520, L500.4100 #### [facility] [address] [place], [address] WBC (Bld) [#/Vol] 5.0 10*3/uL Normal 4.4-11.0 [facility] Comment on above: Performed By: #### L 501.9985, L100.0100, L500.4050, L506.1000, L501.9520, L500.4100 #### [facility] [address] [place], [address] Emergency Department Summary on 12-19-2023 Emergency Department Summary [facility] Medical Records Department [address] [place] [address] Emergency Department Summary 12/19/23 MR#: [id number] Acct: [id number] Name: OLMAN SYED Rep #: [id number] : 1935 88 From: Caleb Cristina MD PCP: Dr. Keron Maciel MD Status:REG ER Location: ED HPI HPI - Fall History of Present Illness Chief Complaint: Fall Informant: patient Occured/Mechanism Occurred: Today Mechanism/Context: Yes trip Narrative: Going up 1-2 steps from his garage into his home. Usually ambulates: Without assistance Pain/Injury Pain Location: head and lower extremity Quality of Pain: Dull and Aching Current Severity: Mild Maximum Severity: Mild Associated Symptoms Associated Symptoms: Negative for Parasthesias, Weakness, Loss of function, Inability to ambulate, Loss of consciousness or Amnesia Narrative Narrative: 88-year-old male extensive past medical history of diabetes, CAD with stent on both Plavix and aspirin, hypertension, CKD and Parkinson's disease. He was in his garage walking in his home there is several steps he can lost his balance going up the steps fell backwards and he fell a second time neighbors and there helped him up. Hit his head on something on the garage floor causing a laceration to the back of his scalp. He denies any neck pain. He actually fell 3 weeks ago was seen in the emergency department was not admitted at that time. Had to have suture repair of his scalp. He has been complaining of some left hip discomfort since that time. He believes x-rays at that time and they were negative. 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 Obesity History of CVA (cerebrovascular accident) Stroke/cerebrovascular accident Body mass index (BMI) 40.0-44.9, adult GERD (gastroesophageal reflux disease) BPH (benign prostatic hyperplasia) Hypothyroidism Osteoarthritis CKD (chronic kidney disease) stage 3, GFR 30-59 ml/min Debility Iron deficiency anemia Syncope and collapse Right bundle branch block (RBBB) with left anterior fascicular block Premature ventricular contractions Essential (primary) hypertension Vocal cord dysfunction DANYELL (obstructive sleep apnea) Hiatal hernia BMI 40.0-44.9, adult Dyspnea Cough Shortness of breath Obesity Upper respiratory infection Right flank pain Anemia Atherosclerotic heart disease of [place] coronary artery without angina pectoris 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 Palpitations Nonrheumatic tricuspid (valve) insufficiency HLD (hyperlipidemia) Chest pain Appendicitis Benign prostatic hypertrophy GERD (gastroesophageal reflux disease) Nephrolithiasis Diabetes mellitus type 2 in obese Home Medications ???Medication ???Instructions ???Recorded ???Last Taken ???Type cholecalciferol (vitamin D3) 125 5,000 unit PO DAILY vitamin 06/29/15 02/10/20 History mcg (5,000 unit) capsule finasteride 5 mg tablet 5 mg PO DAILY prostate 06/29/15 10/29/21 History aspirin 81 mg tablet,delayed 81 mg PO DAILY heart health 07/24/15 10/29/21 History release acetaminophen 500 mg tablet 1,000 mg (2 x 500 mg) PO Q6H PRN 02/19/20 Unknown Rx PRN Pain Score 1-3/10 Handi cap Placard #1 ea 10/14/20 Unknown Rx vitamins A,C,R-jfjn-hhktxq 2,148 2 tab PO DAILY 12/17/20 Unknown History mcg-113 mg-45 mg-17.4 mg tablet (PreserVision AREDS) pen needle, diabetic 32 gauge x #100 ea 12/25/20 Unknown Rx 1/4 levothyroxine 50 mcg tablet 50 mcg PO DAILY thyroid #90 tabs 02/07/23 Unknown Rx furosemide 40 mg tablet 40 mg PO DAILY Fluid retention #90 02/28/23 Unknown Rx tabs ranolazine 500 mg tablet,extended 500 mg PO BID #180 tabs 03/06/23 Unknown Rx release,12 hr escitalopram oxalate 10 mg tablet 10 mg PO DAILY #90 tabs 03/08/23 Unknown Rx insulin human U-100 NPH-regulr 50 unit subcut BID diabetes 03/14/23 Unknown History 70-30 mix 100 unit/mL subcutaneous susp pantoprazole 40 mg tablet,delayed See Rx Instructions .Route 03/15/23 Unknown Rx release .COMPLEX #90 tabs isosorbide mononitrate 30 mg 30 mg PO DAILY Ask Dr #90 tabs 04/12/23 Unknown Rx tablet,extended release 24 hr trazodone 50 mg tablet 25 mg (1/2 x 50 mg) PO QHS PRN 07/24/23 Unknown Rx sleep #30 tabs carbidopa 25 mg-levodopa 100 mg See Rx Instructions .Route 07/27/23 Unknown Rx tablet (Sinemet) .COMPLEX #150 tabs dextromethorphan-guaif enesin 10 10 ml PO Q8H PRN cough #237 mL 08/10/23 Unknown Rx mg-200 mg/5 mL oral liquid (Adult [facility]in DM Max) clopidogrel 75 mg tablet 75 mg PO DAILY TIA #90 tabs 09/11/23 Unknown Rx amlodipine 5 mg tablet 5 mg PO DAILY BP #90 tabs 09/19/23 Unknown Rx metformin 1,000 mg tablet (more content not included)... Normal [facility] HIP, UNI W/ Pelvis 2-3 Views on 12-19-2023 HIP, UNI W/ Pelvis 2-3 Views [facility] Imaging Services [address] [place] [address] HIP, UNI W/ Pelvis 2-3 Views MR#: [id number] Acct: [id number] Name: OLMAN SYED Rep #: [id number] : 1935 M 88 From: Geo Simeon MD PCP: Dr. Keron Maciel MD Status: PRE ER Study: HIP, UNI W/ Pelvis 2-3 Views Date of Exam: 08/12 Exam# [id number] Ordering Dr: Caleb Cristina MD [id number] STUDY: X-RAY - PELVIS AND LEFT HIP REASON FOR EXAM: Male, 88 years old. fall TECHNIQUE: 3 views of the pelvis and hip. COMPARISON: None. FINDINGS: There is a non-specific bowel gas pattern. Normal visualized soft tissue structures. Normal bilateral iliac wings, sacroiliac joints and visualized sacrum. Normal bilateral superior and inferior pubic rami. Normal pubic symphysis. Normal bilateral ischial tuberosities. Status post multilevel lumbar fusion Normal visualized femoral head. Minor acetabular spurring.. Normal hip joint. RAD/HIP, UNI W/ Pelvis 2-3 Views IMPRESSION: Minor degenerative changes of the left hip. No acute hip or pelvic fracture. Incidental finding of linear lucency through the sacral wings most likely artifactual however if patient has back pain CT recommended for more definitive evaluation Electronically Signed: Geo Simeon MD at 17:26 EDT , CC: Dr. Caleb Cristina MD; Dr. Keron Maciel MD [facility] Nurse: Signed Normal [facility] MR/BMS.[facility] 11-22-2023 MR/BMS.[facility] [address] [place] [address] OFFICE VISIT Date of Service: 11/22/23 MR#: [id number] Acct: [id number] Name: OLMAN SYED Rep #: [id number] : 1935 Provider: Dr. Keron fonseca MD Age/Sex: 88/M Location: [facility] Status: Signed Intake Vital Signs 11/20/23 09:53 11/22/23 14:07 Height 5 ft 4 in Weight: 229 lb 234 lb BMI 39.3 BP 134/77 H 142/66 H Blood Pressure Location Rt brachial Lt brachial Position Sitting Sitting Respiration 20 H Pulse 75 74 Pulse Source Monitor Monitor Temp 97.7 F L 98.4 F Temp Source Temporal Temporal Pulse Oximetry (%) 94 93 Oxygen Delivery Method room air room air Intake Visit Reasons: Remove Sutures Chief Complaint: Scalp lacteration suture removal Utility Hand Required: No Accompanied by: Is patient in pain?: Yes (Head) Pain scale (1-10): 5 Allergies lisinopril Allergy (Mild, Verified 11/22/23 14:08) Cough losartan Adverse Reaction (Intermediate, Verified 11/22/23 14:08) Jitters metoprolol Adverse Reaction (Intermediate, Verified 11/22/23 14:08) Jitters pioglitazone HCl (From Actos) Adverse Reaction (Mild, Verified 11/22/23 14:08) Upset Stomach Medications ???Medication ???Instructions ???Recorded ???Confirmed ???Type cholecalciferol (vitamin D3) 125 5,000 unit PO DAILY vitamin 06/29/15 11/22/23 History mcg (5,000 unit) capsule finasteride 5 mg tablet 5 mg PO DAILY prostate 06/29/15 11/22/23 History aspirin 81 mg tablet,delayed 81 mg PO DAILY heart health 07/24/15 11/22/23 History release acetaminophen 500 mg tablet 1,000 mg (2 x 500 mg) PO Q6H PRN 02/19/20 11/22/23 Rx PRN Pain Score 1-3/10 Handi cap Placard #1 ea 10/14/20 11/22/23 Rx vitamins A,C,Y-ppav-zyaapn 2,148 2 tab PO DAILY 12/17/20 11/22/23 History mcg-113 mg-45 mg-17.4 mg tablet (PreserVision AREDS) pen needle, diabetic 32 gauge x #100 ea 12/25/20 11/22/23 Rx 1/4 levothyroxine 50 mcg tablet 50 mcg PO DAILY thyroid #90 tabs 02/07/23 11/22/23 Rx furosemide 40 mg tablet 40 mg PO DAILY Fluid retention #90 02/28/23 11/22/23 Rx tabs ranolazine 500 mg tablet,extended 500 mg PO BID #180 tabs 03/06/23 11/22/23 Rx release,12 hr escitalopram oxalate 10 mg tablet 10 mg PO DAILY #90 tabs 03/08/23 11/22/23 Rx insulin human U-100 NPH-regulr 50 unit subcut BID diabetes 03/14/23 11/22/23 History 70-30 mix 100 unit/mL subcutaneous susp pantoprazole 40 mg tablet,delayed See Rx Instructions .Route 03/15/23 11/22/23 Rx release .COMPLEX #90 tabs isosorbide mononitrate 30 mg 30 mg PO DAILY Ask Dr #90 tabs 04/12/23 11/22/23 Rx tablet,extended release 24 hr trazodone 50 mg tablet 25 mg (1/2 x 50 mg) PO QHS PRN 07/24/23 11/22/23 Rx sleep #30 tabs carbidopa 25 mg-levodopa 100 mg See Rx Instructions .Route 07/27/23 11/22/23 Rx tablet (Sinemet) .COMPLEX #150 tabs benzonatate 100 mg capsule 200 mg (2 x 100 mg) PO TID PRN 08/10/23 11/22/23 Rx cough #30 caps dextromethorphan-guaif enesin 10 10 ml PO Q8H PRN cough #237 mL 08/10/23 11/22/23 Rx mg-200 mg/5 mL oral liquid (Adult [facility]in DM Max) clopidogrel 75 mg tablet 75 mg PO DAILY Cholestrol #90 tabs 09/11/23 11/22/23 Rx amlodipine 5 mg tablet 5 mg PO DAILY BP #90 tabs 09/19/23 11/22/23 Rx metformin 1,000 mg tablet 500 mg (1/2 x 1,000 mg) PO BIDCM 09/25/23 11/22/23 Rx diabetes #180 tabs pravastatin 20 mg tablet 20 mg PO DAILY cholesterol #90 tabs 10/03/23 11/22/23 Rx cephalexin 500 mg capsule 500 mg PO BID #14 caps 11/20/23 11/22/23 Rx PFSH Medical History Acute otitis media, left 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 Obesity History of CVA (cerebrovascular accident) Stroke/cerebrovascular accident Body mass index (BMI) 40.0-44.9, adult GERD (gastroesophageal reflux disease) BPH (benign prostatic hyperplasia) Hypothyroidism Osteoarthritis CKD (chronic kidney disease) stage 3, GFR 30-59 ml/min Debility Iron deficiency anemia Syncope and collapse Right bundle branch block (RBBB) with left anterior fascicular block Premature ventricular contractions Essential (primary) hypertension Vocal cord dysfunction DANYELL (obstructive sleep apnea) Hiatal hernia BMI 40.0-44.9, adult Dyspnea Cough Shortness of breath Obesity Upper respiratory infection Right flank pain Anemia Atherosclerotic heart disease of [place] coronary artery without angina pectoris 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 Palpitations Nonrheumatic tricuspid (valve) insufficiency HLD (hyperlipidemia) Chest pain Appendicitis Benign prostatic hypertrophy GERD (gastroesophageal reflux disease) Nephrolithiasis Diabetes mellitus type 2 in obese Surgical History History of appendectomy (more content not included)... Normal [facility] MR/BMS.[facility] 11-20-2023 MR/BMS.[facility] [address] [facility] [facility] [address] [place] [address] OFFICE VISIT Date of Service: 11/20/23 MR#: [id number] Acct: [id number] Name: OLMAN SYED Rep #: [id number] : 1935 Provider: Dr. Keron fonseca MD Age/Sex: 88/M Location: [facility] Status: Signed with Addenda ADDENDUM by Dr. Keron Maciel MD on 11/20/23 at 1115 HPI Details: OLMAN SYED, is a 88 M who presents to the office today for Assessment and Plan Assessment and Plan (1) Laceration of scalp: Status: Inactive (2) Closed head injury: Status: Inactive (3) Right carpal tunnel syndrome: Status: Acute Medications: New cephalexin 500 mg PO BID 14 caps 0RF Plan Details Additional Comments: Addendum: Patient also remarked, it he has numbness and tingling and uncomfortable feeling right arm, going to sleep. Mostly centering around the wrist, thumb index and ring finger but extending up the arm somewhat. Those wake with it in the morning, better after shaking it out, and brief exam consistent with carpal tunnel. He will trial right wrist splint that was provided today for nocturnal use but could also work in the daytime as when he falls asleep in the recliner chair this is also happening. 11/20/23 1115 Date Keron Maciel MD cc: * Signed Intake Vital Signs 11/12/23 14:15 11/20/23 09:53 Height 5 ft 4 in 5 ft 4 in Weight: 229 lb BMI 39.3 BP 134/77 H Blood Pressure Location Rt brachial Position Sitting Respiration 20 H Pulse 75 Pulse Source Monitor Temp 97.7 F L Temp Source Temporal Pulse Oximetry (%) 94 Oxygen Delivery Method room air Intake Visit Reasons: Remove Sutures Chief Complaint: Scalp lacteration suture removal Utility Hand Required: No Accompanied by: Is patient in pain?: Yes Pain scale (1-10): 4 Allergies lisinopril Allergy (Mild, Verified 11/20/23 09:51) Cough losartan Adverse Reaction (Intermediate, Verified 11/20/23 09:51) Jitters metoprolol Adverse Reaction (Intermediate, Verified 11/20/23 09:51) Jitters pioglitazone HCl (From Actos) Adverse Reaction (Mild, Verified 11/20/23 09:51) Upset Stomach Medications ???Medication ???Instructions ???Recorded ???Confirmed ???Type cholecalciferol (vitamin D3) 125 5,000 unit PO DAILY vitamin 06/29/15 11/20/23 History mcg (5,000 unit) capsule finasteride 5 mg tablet 5 mg PO DAILY prostate 06/29/15 11/20/23 History aspirin 81 mg tablet,delayed 81 mg PO DAILY heart health 07/24/15 11/20/23 History release acetaminophen 500 mg tablet 1,000 mg (2 x 500 mg) PO Q6H PRN 02/19/20 11/20/23 Rx PRN Pain Score 1-3/10 Elizabeth Figueroa #1 ea 10/14/20 11/20/23 Rx vitamins A,C,I-gpzu-zjrllf 2,148 2 tab PO DAILY 12/17/20 11/20/23 History mcg-113 mg-45 mg-17.4 mg tablet (PreserVision AREDS) pen needle, diabetic 32 gauge x #100 ea 12/25/20 11/20/23 Rx / levothyroxine 50 mcg tablet 50 mcg PO DAILY thyroid #90 tabs 02/07/23 11/20/23 Rx furosemide 40 mg tablet 40 mg PO DAILY Fluid retention #90 02/28/23 11/20/23 Rx tabs ranolazine 500 mg tablet,extended 500 mg PO BID #180 tabs 03/06/23 11/20/23 Rx release,12 hr escitalopram oxalate 10 mg tablet 10 mg PO DAILY #90 tabs 03/08/23 11/20/23 Rx insulin human U-100 NPH-regulr 50 unit subcut BID diabetes 03/14/23 11/20/23 History 70-30 mix 100 unit/mL subcutaneous susp pantoprazole 40 mg tablet,delayed See Rx Instructions .Route 03/15/23 11/20/23 Rx release .COMPLEX #90 tabs isosorbide mononitrate 30 mg 30 mg PO DAILY Ask #90 tabs 04/12/23 11/20/23 Rx tablet,extended release 24 hr trazodone 50 mg tablet 25 mg (1/2 x 50 mg) PO QHS PRN 07/24/23 11/20/23 Rx sleep #30 tabs carbidopa 25 mg-levodopa 100 mg See Rx Instructions .Route 07/27/23 11/20/23 Rx tablet (Sinemet) .COMPLEX #150 tabs benzonatate 100 mg capsule 200 mg (2 x 100 mg) PO TID PRN 08/10/23 11/20/23 Rx cough #30 caps dextromethorphan-guaif enesin 10 10 ml PO Q8H PRN cough #237 mL 08/10/23 11/20/23 Rx mg-200 mg/5 mL oral liquid (Adult [facility]-Tussin DM Max) clopidogrel 75 mg tablet 75 mg PO DAILY Cholestrol #90 tabs 09/11/23 11/20/23 Rx amlodipine 5 mg tablet 5 mg PO DAILY BP #90 tabs 09/19/23 11/20/23 Rx metformin 1,000 mg tablet 500 mg (1/2 x 1,000 mg) PO BIDCM 09/25/23 11/20/23 Rx diabetes #180 tabs pravastatin 20 mg tablet 20 mg PO DAILY cholesterol #90 tabs 10/03/23 11/20/23 Rx cephalexin 500 mg capsule 500 mg PO BID #14 caps 11/20/23 11/20/23 Rx PFSH Medical History Acute otitis media, left 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 Normal [facility] 11-16-2023 CN Office Visit (PODIWS ) OLMAN SYED ([id number]) 1935 M Date Time Provider Department 11/16/23 1:15 PM BARBIE NOVA PODIWS During your visit today, we recorded the following information about you: Dinorah Dempsey LPN 11/16/2023 1:21 PM Signed AMB ROOMING INTAKE FLOWSHEET DATA Patient presents with: Left Foot - Established Patient, Diabetic Foot Care Right Foot - Established Patient, Diabetic Foot Care GISELA Tiwari Matthew 11/16/2023 1:21 PM Signed Last saw pcp: 07/27/23 Subjective: Patient presents to clinic c/o painful toenails. They state that the nails are especially painful with shoe gear and pressure. Patient states that nails 1 b/l are painful. Patient admits to being diabetic. No other pedal complaints at this time. Patient states no change in medications or medical history since last visit. Objective: Patient presents to clinic ambulating in diabetic shoes Vasc: DP and PT pulses are palpable bilateral. CFT is less than 5 seconds bilateral. Skin temperature is warm to cool proximal to distal bilateral. There is mild edema or varicosities noted. Neuro: Protective sensation is intact to the foot and toes when tested with the 5.07 SWM bilateral. Vibratory sensation is absent at the hallux IPJ bilateral. The hallux is downgoing bilateral. Derm: Nails 1-5 b/l are painful, discolored-yellow, thick, crumbly, dystrophic and with subungal debris. Skin is of normal turgor, texture and hair growth is decreased bilateral. There are no hyperkeratosis, ulcerations, scars, verruca or other lesions noted. Ortho: Muscle strength is 5/5 for all pedal groups tested. Ankle joint DF is decreased with the knee extended with no pain or crepitus noted. 1st MPJ ROM is decreased bilateral. Assessment: (B35.1) Onychomycosis (primary encounter diagnosis) (M79.675) Pain in toe of left foot (M79.674) Pain in toe of right foot (E11.42) Diabetic polyneuropathy associated with type 2 diabetes mellitus (HCC) Plan: Patient was seen and evaluated. Nails 1-5 bilateral were debrided in length and thickness. Patient was instructed on the continued importance of diabetic foot care along with proper diet and keeping their blood sugar under control to prevent complications. Discussed the importance of avoiding barefoot walking, wearing diabetic shoes and inspection of feet Past history of callus. No callus today. Continue with lotion and diabetic shoe Patient is to RTC in 3-4 months. EMILY Duff Matthew 11/16/2023 1:21 PM Signed Diabetes Foot Care Instructions When you have diabetes, proper foot care is very important. Poor foot care may lead to amputation of a foot or leg. As a person with diabetes, you are more vulnerable to foot problems, because diabetes can damage your nerves and reduce blood flow to your feet. Here are some diabetes foot care tips to follow: Wash and Dry Your Feet Daily Use mild soaps Use warm water Pat your skin dry; do not rub. Thoroughly dry your feet. After washing, use lotion on your feet to prevent cracking. Do not put lotion between your toes. Examine Your Feet Each Day Check the tops and bottoms of your feet. Have someone else look at your feet if you cannot see them. Check for dry, cracked skin. Look for blisters, cuts, scratches, or other sores. Check for redness, increased warmth, or tenderness when touching any area of your feet. Check for ingrown toenails, corns, and calluses. If you get a blister or sore from your shoes, do not pop it. Apply a bandage and wear a different pair of shoes. Take Care of Your Toenails Cut toenails after bathing, when they are soft. Cut toenails straight across and smooth with a nail file. Avoid cutting into the corners of toes. Do not cut cuticles. If you have neuropathy (or decreased sensation in your feet) a secondary art teacher should always cut your toenails. Be Careful When Exercising Walk and exercise in comfortable shoes. Do not exercise when you have open sores on your feet. Protect Your Feet With Shoes and Socks Never go barefoot. Always protect your feet by wearing shoes or hard-soled slippers or footwear. Avoid shoes with high heels and pointed toes. Avoid shoes that expose your toes or heels (such as open-toed shoes or sandals). These types of shoes increase your risk for injury and potential infections. Try on new footwear with the type of socks you usually wear. Do not wear new shoes for more than an hour at a time. Change your socks daily. Look and feel inside your shoes before putting them on to make sure there are no foreign objects or rough areas. Avoid tight socks. Wear natural-fiber socks (cotton, wool, or a cotton-wool blend). Wear special shoes if your health care provider recommends them. Wear shoes/boots that will protect your feet from various weather co (more content not included)... Normal [facility] Brain/Head without Contrasto n 11-12-2023 Brain/Head without Contrast [facility] Imaging Services [address] [place] [address] Brain/Head without Contrast MR#: [id number] Acct: [id number] Name: OLMAN SYED Rep #: [id number] : 1935 M 88 From: Mark Gomez PCP: Dr. Keron Maciel MD Status: REG ER Study: Brain/Head without Contrast Date of Exam: 10/18 12/10 Exam# [id number] Ordering Dr: Rocío Ro [id number] STUDY: CT BRAIN WITHOUT CONTRAST REASON FOR EXAM: Male, 88 years old. FALL Individualized dose optimization techniques were used for this CT. TECHNIQUE: Transaxial CT imaging of the brain was performed without administration of intravenous contrast material. COMPARISON: 02/01/2022 FINDINGS: There are calcifications around the carotid artery. These are noted in the cavernous carotid arteries. Normal calvarium. There is no underlying fracture. Soft tissue swelling of the scalpsuperiorly on the left. There is mild cerebral atrophy with widening of the extra-axial spaces and ventricular dilatation. There are areas of decreased attenuation within the white matter tracts of the supratentorial brain, consistent with microvascular disease changes. Normal basal ganglia and thalami. Normal brainstem. There is mild cerebellar atrophy. There is no intracranial hemorrhage. There are no findings of an acute ischemic infarction. Normal visualized paranasal sinuses. ASPECTS Score for Acute Strokes: 10 CT/Brain/Head without Contrast IMPRESSION: There is no underlying fracture. Soft tissue swelling of the scalpsuperiorly on the left. Electronically Signed: Mark Cadena MD at 15:41 EDT , CC: Dr. Keron Maciel MD; NEER[facility] Nurse: Signed Normal [facility] Emergency Department Summary on 11-12-[address] [facility] Medical Records Department [address] [place] [address] Emergency Department Summary 11/12/23 MR#: [id number] Acct: [id number] Name: OLMAN SYED Rep #: [id number] : 1935 88 From: Thierno Trevizo DO PCP: Dr. Keron Maciel MD Status:DEP ER Location: ED HPI History of Present Illness Chief Complaint: Fall Narrative Narrative: 88-year-old male has chronic left hip pain and states it caused him to lose his balance and fall. He struck the left side of his head on the kitchen cupboard landed on the ground. No loss of consciousness. He is on aspirin/Plavix for history of stents. He states his head is sore over the lacerated area but he denies headache, vision changes, nausea or vomiting, or neck or back pain. [facility] Medical History Acute otitis media, left Anemia Appendicitis Atherosclerotic heart disease of [place] coronary artery without angina pectoris Benign prostatic hypertrophy BMI 40.0-44.9, adult Body mass index (BMI) 40.0-44.9, adult BPH (benign prostatic hyperplasia) Chest pain CKD (chronic kidney disease) stage 3, GFR 30-59 ml/min Cough Debility Diabetes mellitus type 2 in obese 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 Dyspnea Essential (primary) hypertension GERD (gastroesophageal reflux disease) GERD (gastroesophageal reflux disease) Hiatal hernia History of CVA (cerebrovascular accident) HLD (hyperlipidemia) Hypothyroidism Iron deficiency anemia 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 Nephrolithiasis Nonrheumatic tricuspid (valve) insufficiency Obesity Obesity DAYNELL (obstructive sleep apnea) Osteoarthritis Palpitations Premature ventricular contractions Right bundle branch block (RBBB) with left anterior fascicular block Right flank pain Shortness of breath Stroke/cerebrovascular accident Syncope and collapse Upper respiratory infection Vocal cord dysfunction Home Medications ???Medication ???Instructions ???Recorded ???Last Taken ???Type cholecalciferol (vitamin D3) 125 5,000 unit PO DAILY vitamin 06/29/15 02/10/20 History mcg (5,000 unit) capsule finasteride 5 mg tablet 5 mg PO DAILY prostate 06/29/15 10/29/21 History aspirin 81 mg tablet,delayed 81 mg PO DAILY heart health 07/24/15 10/29/21 History release acetaminophen 500 mg tablet 1,000 mg (2 x 500 mg) PO Q6H PRN 02/19/20 Unknown Rx PRN Pain Score 1-3/10 Handi cap Placard #1 ea 10/14/20 Unknown Rx vitamins A,C,P-eskx-pcjdvt 2,148 2 tab PO DAILY 12/17/20 Unknown History mcg-113 mg-45 mg-17.4 mg tablet (PreserVision AREDS) pen needle, diabetic 32 gauge x #100 ea 12/25/20 Unknown Rx 1/ levothyroxine 50 mcg tablet 50 mcg PO DAILY thyroid #90 tabs 02/07/23 Unknown Rx furosemide 40 mg tablet 40 mg PO DAILY Fluid retention #90 02/28/23 Unknown Rx tabs ranolazine 500 mg tablet,extended 500 mg PO BID #180 tabs 03/06/23 Unknown Rx release,12 hr escitalopram oxalate 10 mg tablet 10 mg PO DAILY #90 tabs 03/08/23 Unknown Rx insulin human U-100 NPH-regulr 50 unit subcut BID diabetes 03/14/23 Unknown History 70-30 mix 100 unit/mL subcutaneous susp pantoprazole 40 mg tablet,delayed See Rx Instructions .Route 03/15/23 Unknown Rx release .COMPLEX #90 tabs isosorbide mononitrate 30 mg 30 mg PO DAILY Ask Dr #90 tabs 04/12/23 Unknown Rx tablet,extended release 24 hr trazodone 50 mg tablet 25 mg (1/2 x 50 mg) PO QHS PRN 07/24/23 Unknown Rx sleep #30 tabs carbidopa 25 mg-levodopa 100 mg See Rx Instructions .Route 07/27/23 Unknown Rx tablet (Sinemet) .COMPLEX #150 tabs benzonatate 100 mg capsule 200 mg (2 x 100 mg) PO TID PRN 08/10/23 Unknown Rx cough #30 caps dextromethorphan-guaif enesin 10 10 ml PO Q8H PRN cough #237 mL 08/10/23 Unknown Rx mg-200 mg/5 mL oral liquid (Adult Wal-Tussin DM Max) clopidogrel 75 mg tablet 75 mg PO DAILY Cholestrol #90 tabs 09/11/23 Unknown Rx amlodipine 5 mg tablet 5 mg PO DAILY BP #90 tabs 09/19/23 Unknown Rx metformin 1,000 mg tablet 500 mg (1/2 x 1,000 mg) PO BIDCM 09/25/23 Unknown Rx diabetes #180 tabs pravastatin 20 mg tablet 20 mg PO DAILY cholesterol #90 tabs 10/03/23 Unknown Rx Allergy/AdvReac Type Severity Reaction Status Date / Time lisinopril Allergy Mild Cough Verified 11/12/23 14:18 losartan AdvReac Intermediate Jitters Verified 11/12/23 14:18 metoprolol AdvReac Intermediate Jitters Verified 11/12/23 14:18 pioglitazone HCl (From Actos) AdvReac Mild Upset Verified 11/12/23 14:18 Stomach Family History Mother CAD (coronary artery disease) CVA (cerebral vascular accident) Brother CAD (coronary artery disease) Myocardial infarction Diabetes Heart disease Daughter Asthma Father Cancer bone cancer Sister Breast cancer (more content not included)... Normal [facility] Spine Cervical without Contr ason 11-12-2023 Spine Cervical without Contras [facility] Imaging Services [address] [place] [address] Spine Cervical without Contras MR#: [id number] Acct: [id number] Name: OLMAN SYED Rep #: [id number] : 1935 M 88 From: Mark Gomez PCP: Dr. Keron Maciel MD Status: DEP ER Study: Spine Cervical without Contras Date of Exam: 0 11/12/23 Exam# [id number] Ordering Dr: Rocío Ro [id number] EXAM: CT SPINE - CERVICAL WITHOUT IV REASON FOR EXAM: Male, 88 years old. NECK PAIN FALL, TRAUMA HISTORY: NECK PAIN FALL, TRAUMA Individualized dose optimization techniques were used for this CT. TECHNIQUE: Multiplanar images were obtained of the cervical spine. IV contrast was not utilized. COMPARISON: None. FINDINGS: The vertebral bodies do maintain their height. The odontoid process is intact. No pre-vertebral soft tissue swelling is seen. The intravertebral disc height is lost. There are scattered lymph nodes in the neck. There are degenerative changes of the osseous structures. There is bilateral facet arthropathy. There are scattered levels of foraminal stenosis. There are vascular calcifications. CT/Spine Cervical without Contras IMPRESSION: Degenerative changes of the cervical spine. There are no acute findings. Electronically Signed: Mark Cadena MD at 15:11 EDT , CC: Dr. Keron Maciel MD; [facility] Nurse: Signed Normal [facility] Absolute lymphocyte countOrd ered By: Keron Maciel on 09-22-2023 Lymphocytes Auto (Unsp spec) [#/Vol] 1.66 10*3/uL 0.83-4.51 [facility] Automated lymphocyte count a s percentage of total leukocytesOrdered By: Keron Maciel on 09-22-2023 Lymphocytes/100 WBC Auto (Unsp spec) 20.4 % 19-41 [facility] Basophil percentageOrdered B y: Keron Maciel on 09-22-2023 Basophils/100 WBC (Bld) 0.4 % 0-1 [facility] Bilirubin [Mass/Vol] 0.70 mg/dL 0.20-1.00 [facility] Comment on above: For patients on eltr ombopag therapy, use of Dimension Phenix TBIL is not recommended. Chloride [Moles/Vol] 100 mmol/L 98-107 [facility] Cholesterol [Mass/Vol] 154 mg/dL <200 [facility] Comment on above: <200 mg/dL Desirable 200-240 mg/dL Borderline >240 mg/dL High Risk Eosinophils/100 WBC (Bld) 1.0 % 0-5 [facility] Glucose [Mass/Vol] 126 mg/dL 74-106 [facility] Comment on above: Fasting Glucose resu lt greater than or equal to 126 mg/dL suggests DIABETES MELLITUS per A.D.A. criteria. Hemoglobin (Bld) [Mass/Vol] 13.3 g/dL 13.0-16.5 [facility] Monocytes/100 WBC (Bld) 8.7 % 0-10 [facility] Neutrophils (Bld) [#/Vol] 5.5 10*3/uL 2.0-7.7 [facility] Neutrophils/100 WBC (Bld) 67.8 % 47-70 [facility] Potassium [Moles/Vol] 4.5 mmol/L 3.5-5.1 [facility] Protein [Mass/Vol] 7.2 g/dL 6.4-8.2 [facility] Sodium [Moles/Vol] 136 mmol/L 136-145 [facility] Triglyceride [Mass/Vol] 145 mg/dL <199 [facility] Comment on above: The drugs N-Acetylcy steine and Metamizole may falsely depress this assay.Serum Triglycerides Reference Interval Normal <150 mg/dL Borderline high 150 - 199 mg/dL High 200 - 499 mg/dL Very High > or = 500 mg/dL WBC (Bld) [#/Vol] 8.1 10*3/uL 4.4-11.0 [facility] CBC W/Diff, Automatedon 04-0 -2023 Absolute Lymph 1.66 X10 3/uL Normal 0.83-4.51 [facility] Comment on above: Performed By: #### L 501.9985, L100.0100, L500.4050, L506.1000, L501.9520, L500.4100 #### [facility] [address] [place], [address] Absolute Neut 5.5 X10 3/uL Normal 2.0-7.7 [facility] Comment on above: Performed By: #### L 501.9985, L100.0100, L500.4050, L506.1000, L501.9520, L500.4100 #### [facility] [address] [place], [address] Basophils/100 WBC (Bld) 0.4 % Normal 0-1 [facility] Comment on above: Performed By: #### L 501.9985, L100.0100, L500.4050, L506.1000, L501.9520, L500.4100 #### [facility] [address] [place], [address] Eosinophils/100 WBC (Bld) 1.0 % Normal 0-5 [facility] Comment on above: Performed By: #### L 501.9985, L100.0100, L500.4050, L506.1000, L501.9520, L500.4100 #### [facility] [address] [place], [address] Erythrocyte distribution width (RBC) [Ratio] 16.9 % High 11.6-14.6 [facility] Comment on above: Performed By: #### L 501.9985, L100.0100, L500.4050, L506.1000, L501.9520, L500.4100 #### [facility] [address] [place], [address] Hematocrit (Bld) [Volume fraction] 41.1 % Normal 40-54 [facility] Comment on above: Performed By: #### L 501.9985, L100.0100, L500.4050, L506.1000, L501.9520, L500.4100 #### [facility] [address] [place], [address] Hemoglobin (Bld) [Mass/Vol] 13.3 g/dL Normal 13.0-16.5 [facility] Comment on above: Performed By: #### L 501.9985, L100.0100, L500.4050, L506.1000, L501.9520, L500.4100 #### [facility] [address] [place], [address] IG% 1.700 High 0.0-0.9 [facility] Comment on above: Result Comment: IG% - Immature Granulocytes (promyelocytes, myelocytes and metamyelocytes) > 1% indicates that a LEFT SHIFT is Present. Performed By: #### L 501.9985, L100.0100, L500.4050, L506.1000, L501.9520, L500.4100 #### [facility] [address] [place], [address] Lymphocytes/100 WBC (Bld) 20.4 % Normal 19-41 [facility] Comment on above: Performed By: #### L 501.9985, L100.0100, L500.4050, L506.1000, L501.9520, L500.4100 #### [facility] [address] [place], [address] MCH (RBC) [Entitic mass] 28.8 pg Normal 27.0-32.0 [facility] Comment on above: Performed By: #### L 501.9985, L100.0100, L500.4050, L506.1000, L501.9520, L500.4100 #### [facility] [address] [place], [address] MCHC (RBC) [Mass/Vol] 32.4 g/dL Normal 32-36 [facility] Comment on above: Performed By: #### L 501.9985, L100.0100, L500.4050, L506.1000, L501.9520, L500.4100 #### [facility] [address] [place], [address] MCV (RBC) [Entitic vol] 89.0 fL Normal 80-94 [facility] Comment on above: Performed By: #### L 501.9985, L100.0100, L500.4050, L506.1000, L501.9520, L500.4100 #### [facility] [address] [place], [address] Monocytes/100 WBC (Bld) 8.7 % Normal 0-10 [facility] Comment on above: Performed By: #### L 501.9985, L100.0100, L500.4050, L506.1000, L501.9520, L500.4100 #### [facility] [address] [place], [address] Neutrophils/100 WBC (Bld) 67.8 % Normal 47-70 [facility] Comment on above: Performed By: #### L 501.9985, L100.0100, L500.4050, L506.1000, L501.9520, L500.4100 #### [facility] [address] [place], [address] Nucleated RBC (Bld) [#/Vol] 0 10*3/uL Normal 0-5 [facility] Comment on above: Performed By: #### L 501.9985, L100.0100, L500.4050, L506.1000, L501.9520, L500.4100 #### [facility] [address] [place], [address] Platelet mean volume (Bld) [Entitic vol] 9.0 fL Normal 6.2-12.0 [facility] Comment on above: Performed By: #### L 501.9985, L100.0100, L500.4050, L506.1000, L501.9520, L500.4100 #### [facility] [address] [place], [address] Platelets (Bld) [#/Vol] 255 10*3/uL Normal 150-450 [facility] Comment on above: Performed By: #### L 501.9985, L100.0100, L500.4050, L506.1000, L501.9520, L500.4100 #### [facility] [address] [place], [address] RBC (Bld) [#/Vol] 4.62 10*6/uL Normal 4.6-6.2 [facility] Comment on above: Performed By: #### L 501.9985, L100.0100, L500.4050, L506.1000, L501.9520, L500.4100 #### [facility] [address] [place], [address] RDW SD 54.4 fl High 35.1-43.9 [facility] Comment on above: Performed By: #### L 501.9985, L100.0100, L500.4050, L506.1000, L501.9520, L500.4100 #### [facility] [address] [place], [address] WBC (Bld) [#/Vol] 8.1 10*3/uL Normal 4.4-11.0 [facility] Comment on above: Performed By: #### L 501.9985, L100.0100, L500.4050, L506.1000, L501.9520, L500.4100 #### [facility] [address] [place], [address] Comprehensive Metabolic Prof [facility] 09-22-2023 Albumin [Mass/Vol] 3.7 g/dL Normal 3.2-5.0 [facility] Comment on above: Performed By: #### L 501.9985, L100.0100, L500.4050, L506.1000, L501.9520, L500.4100 #### [facility] [address] [place], [address] Albumin/Globulin [Mass ratio] 1.1 {ratio} Normal 0.9-2.4 [facility] Comment on above: Performed By: #### L 501.9985, L100.0100, L500.4050, L506.1000, L501.9520, L500.4100 #### [facility] [address] [place], [address] ALK P 32 U/L Low 45-117 [facility] Comment on above: Performed By: #### L 501.9985, L100.0100, L500.4050, L506.1000, L501.9520, L500.4100 #### [facility] [address] [place], [address] ALT [Catalytic activity/Vol] 8 U/L Low 16-61 [facility] Comment on above: Performed By: #### L 501.9985, L100.0100, L500.4050, L506.1000, L501.9520, L500.4100 #### [facility] [address] [place], [address] AST [Catalytic activity/Vol] 10 U/L Low 15-37 [facility] Comment on above: Performed By: #### L 501.9985, L100.0100, L500.4050, L506.1000, L501.9520, L500.4100 #### [facility] [address] [place], [address] Bilirubin [Mass/Vol] 0.70 mg/dL Normal 0.20-1.00 [facility] Comment on above: Result Comment: For patients on eltrombopag therapy, use of Dimension Phenix TBIL is not recommended. Performed By: #### L 501.9985, L100.0100, L500.4050, L506.1000, L501.9520, L500.4100 #### [facility] [address] [place], [address] BUN/CRE 15.0 RATIO Normal 10-20 [facility] Comment on above: Performed By: #### L 501.9985, L100.0100, L500.4050, L506.1000, L501.9520, L500.4100 #### [facility] [address] [place], [address] CA,Total 10.0 mg/dL Normal 8.5-10.1 [facility] Comment on above: Performed By: #### L 501.9985, L100.0100, L500.4050, L506.1000, L501.9520, L500.4100 #### [facility] [address] [place], [address] Chloride [Moles/Vol] 100 mmol/L Normal 98-107 [facility] Comment on above: Performed By: #### L 501.9985, L100.0100, L500.4050, L506.1000, L501.9520, L500.4100 #### [facility] [address] [place], [address] CO2 [Moles/Vol] 29.0 mmol/L Normal 21.0-32.0 [facility] Comment on above: Performed By: #### L 501.9985, L100.0100, L500.4050, L506.1000, L501.9520, L500.4100 #### [facility] [address] [place], [address] Creatinine [Mass/Vol] 1.87 mg/dL High 0.70-1.30 [facility] Comment on above: Result Comment: The validity of the calculated GFR GFRAA in patients over 70 years has not been determined. Clinical correlation is essential. Performed By: #### L 501.9985, L100.0100, L500.4050, L506.1000, L501.9520, L500.4100 #### [facility] [address] [place], [address] EST GFR - AA 44 mL/min Low >60 [facility] Comment on above: Result Comment: Afri can [place] GFR Calc Performed By: #### L 501.9985, L100.0100, L500.4050, L506.1000, L501.9520, L500.4100 #### [facility] [address] [place], [address] GAP 7 Normal 5-15 [facility] Comment on above: Performed By: #### L 501.9985, L100.0100, L500.4050, L506.1000, L501.9520, L500.4100 #### [facility] [address] [place], [address] GFR/1.73 sq M.predicted among non-blacks MDRD (S/P/Bld) [Vol rate/Area] 37 mL/min/{1.73_m2} Low >60 [facility] Comment on above: Result Comment: Non- GFR Calc Performed By: #### L 501.9985, L100.0100, L500.4050, L506.1000, L501.9520, L500.4100 #### [facility] [address] [place], [address] Globulin (S) [Mass/Vol] 3.5 g/dL Normal 2.2-4.2 [facility] Comment on above: Performed By: #### L 501.9985, L100.0100, L500.4050, L506.1000, L501.9520, L500.4100 #### [facility] [address] [place], [address] Glucose [Mass/Vol] 126 mg/dL High 74-106 [facility] Comment on above: Result Comment: Fast ing Glucose result greater than or equal to 126 mg/dL suggests DIABETES MELLITUS per A.D.A. criteria. Performed By: #### L 501.9985, L100.0100, L500.4050, L506.1000, L501.9520, L500.4100 #### [facility] [address] [place], [address] Potassium [Moles/Vol] 4.5 mmol/L Normal 3.5-5.1 [facility] Comment on above: Performed By: #### L 501.9985, L100.0100, L500.4050, L506.1000, L501.9520, L500.4100 #### [facility] [address] [place], [address] Sodium [Moles/Vol] 136 mmol/L Normal 136-145 [facility] Comment on above: Performed By: #### L 501.9985, L100.0100, L500.4050, L506.1000, L501.9520, L500.4100 #### [facility] [address] [place], [address] T PROT 7.2 g/dL Normal 6.4-8.2 [facility] Comment on above: Performed By: #### L 501.9985, L100.0100, L500.4050, L506.1000, L501.9520, L500.4100 #### [facility] [address] [place], [address] Urea nitrogen [Mass/Vol] 28 mg/dL High 7-18 [facility] Comment on above: Performed By: #### L 501.9985, L100.0100, L500.4050, L506.1000, L501.9520, L500.4100 #### [facility] [address] [place], [address] Determination of erythrocyte mean corpuscular volume (MCV)Ordered By: Keron Maciel on 09-22-2023 MCV (RBC) [Entitic vol] 89.0 fL 80-94 [facility] Erythrocyte distribution wid th ratioOrdered By: Keron Maciel on 09-22-2023 Erythrocyte distribution width (RBC) [Ratio] 16.9 % 11.6-14.6 [facility] Erythrocyte distribution wid th standard deviationOrdered By: Keron Maciel on 09-22-2023 Erythrocyte distribution width (RBC) [Entitic vol] 54.4 fL 35.1-43.9 [facility] Hematocrit Auto (Bld) [Volum e fraction]Ordered By: Keron Maciel on 09-22-2023 Hematocrit (Bld) [Volume fraction] 41.1 % 40-54 [facility] Hemoglobin A1con 09-22-2023 HbA1c (Bld) [Mass fraction] 6.4 % High 3.8-5.6 [facility] Comment on above: Result Comment: Norm al < 5.7 % Prediabetic 5.7 - 6.4 % Diabetic >or= 6.5 % Please note range changes. Performed By: #### L 501.9985, L100.0100, L500.4050, L506.1000, L501.9520, L500.4100 #### [facility] [address] [place], [address] Immature granulocytes/100 WB C Auto (Bld)Ordered By: Keron Maciel on 09-22-2023 Immature granulocytes/100 WBC (Bld) 1.700 % 0.0-0.9 [facility] Comment on above: IG% - Immature Granu locytes (promyelocytes, myelocytes and metamyelocytes) > 1% indicates that a LEFT SHIFT is Present. Laboratory - Chemistry and C hemistry - challengeOrdered By: Keron Maciel on 09-22-2023 Albumin/Globulin [Mass ratio] 1.1 {ratio} 0.9-2.4 [facility] ALP [Catalytic activity/Vol] 32 U/L 45-117 [facility] ALT [Catalytic activity/Vol] 8 U/L 16-61 [facility] Cholesterol in HDL [Mass/Vol] 50 mg/dL >40 [facility] Comment on above: The drugs N-Acetylcy steine and Metamizole may falsely depress this assay. Reference Range HDL <40 mg/dL Low HDL Cholesterol HDL >or= 60 mg/dL High HDL Cholesterol Cholesterol in LDL [Mass/Vol] 75 mg/dL 0-130 [facility] CO2 [Moles/Vol] 29.0 mmol/L 21.0-32.0 [facility] Globulin (S) [Mass/Vol] 3.5 g/dL 2.2-4.2 [facility] Urea nitrogen/Creatinine [Mass ratio] 15.0 mg/mg 10-20 [facility] - Hematology and Cell countsOrdered By: Keron Maciel on 09-22-2023 MCH (RBC) [Entitic mass] 28.8 pg 27.0-32.0 [facility] MCHC (RBC) [Mass/Vol] 32.4 g/dL 32-36 [facility] Nucleated RBC/100 WBC (Bld) [Ratio] 0 % 0-5 [facility] Platelet mean volume (Bld) [Entitic vol] 9.0 fL 6.2-12.0 [facility] Platelets (Bld) [#/Vol] 255 10*3/uL 150-450 [facility] Lipid Profileon 09-22-2023 Cholesterol [Mass/Vol] 154 mg/dL Normal 200 [facility] Comment on above: Result Comment: <200 mg/dL Desirable 200-240 mg/dL Borderline >240 mg/dL High Risk Performed By: #### L 501.9985, L100.0100, L500.4050, L506.1000, L501.9520, L500.4100 #### [facility] [address] [place], [place], [id number] Cholesterol in HDL [Mass/Vol] 50 mg/dL Normal [facility] Comment on above: Result Comment: The drugs N-Acetylcysteine and Metamizole may falsely depress this assay. Reference Range HDL <40 mg/dL Low HDL Cholesterol HDL >or= 60 mg/dL High HDL Cholesterol Performed By: #### L 501.9985, L100.0100, L500.4050, L506.1000, L501.9520, L500.4100 #### [facility] [address] [place], [place], [id number] Cholesterol in LDL [Mass/Vol] 75 mg/dL Normal 0-130 [facility] Comment on above: Performed By: #### L 501.9985, L100.0100, L500.4050, L506.1000, L501.9520, L500.4100 #### [facility] [address] [place], [address] Cholesterol in VLDL [Mass/Vol] 29 mg/dL Normal 5-40 [facility] Comment on above: Performed By: #### L 501.9985, L100.0100, L500.4050, L506.1000, L501.9520, L500.4100 #### [facility] [address] [place], [address] Triglyceride [Mass/Vol] 145 mg/dL Normal [facility] Comment on above: Result Comment: The drugs N-Acetylcysteine and Metamizole may falsely depress this assay. Serum Triglycerides Reference Interval Normal <150 mg/dL Borderline high 150 - 199 mg/dL High 200 - 499 mg/dL Very High > or = 500 mg/dL Performed By: #### L 501.9985, L100.0100, L500.4050, L506.1000, L501.9520, L500.4100 #### [facility] [address] [place], [address] No Panel InformationOrdered By: Keron Maciel on 09-22-2023 Estimated GFR (MDRD) Amer 44 mL/min >60 [facility] Comment on above: GFR Calc Estimated GFR (MDRD) Non-Af Amer 37 mL/min >60 [facility] Comment on above: Non- GFR Calc Vitamin D 25-Hydroxy 81.7 ng/mL [facility] Comment on above: Vitamin D 25([place]) Sta tus Range Deficiency <20 ng/mL (50nmol/L) Insufficiency 20 - 30 ng/mL (50 - 75 nmol/L) Sufficiency 30 - 100 ng/mL (75 - 250 nmol/L) Toxicity >100 ng/mL (>250 nmol/L) VLDL Cholesterol 29 mg/dL 5-40 [facility] RBC Auto (Bld) [#/Vol]Ordere d By: Keron Maciel on 09-22-2023 RBC (Bld) [#/Vol] 4.62 10*6/uL 4.6-6.2 [facility] Serum or plasma calcium odilon urement (mass/volume)Ordered By: Keron Maciel on 09-22-2023 Calcium [Mass/Vol] 10.0 mg/dL 8.5-10.1 [facility] Serum or plasma creatinine m easurement (mass/volume)Ordered By: Keron Maciel on 09-22-2023 Creatinine [Mass/Vol] 1.87 mg/dL 0.70-1.30 [facility] Comment on above: The validity of the calculated GFR & GFRAA in patients over 70 years has not been determined. Clinical correlation is essential. Serum or plasma thyroid stim ulating hormone (TSH) measurement (units/volume)Ordered By: Keron Maciel on 09-22-2023 TSH Qn 2.98 uIU/mL 0.358-3.74 [facility] Serum or plasma urea nitroge n measurement (mass/volume)Ordered By: Keron Maciel on 09-22-2023 Urea nitrogen [Mass/Vol] 28 mg/dL 7-18 [facility] Thin prep Papanicolaou smear with manual screeningOrdered By: Keron Maciel on 09-22-2023 Thin prep Papanicolaou smear with manual screening 3.7 g/dL 3.2-5.0 [facility] Thin prep Papanicolaou smear with manual screening 10 U/L 15-37 [facility] Thin prep Papanicolaou smear with manual screening 7 5-15 [facility] Thyroid Stim Hormone (TSH)on 09-22-2023 TSH 2.98 uIU/mL Normal 0.358-3.74 [facility] Comment on above: Performed By: #### L 501.9985, L100.0100, L500.4050, L506.1000, L501.9520, L500.4100 #### [facility] [address] [place], [place], [id number] Vitamin D,25 Hydroxyon 09-21 Vitamin D 25-OH 81.7 ng/mL Normal [facility] Comment on above: Result Comment: Roshni min D 25(OH) Status Range Deficiency <20 ng/mL (50nmol/L) Insufficiency 20 - 30 ng/mL (50 - 75 nmol/L) Sufficiency 30 - 100 ng/mL (75 - 250 nmol/L) Toxicity >100 ng/mL (>250 nmol/L) Performed By: #### L 501.9985, L100.0100, L500.4050, L506.1000, L501.9520, L500.4100 #### [facility] [address] [place], [address] Whole blood hemoglobin A1c/t otal hemoglobin ratio (mass fraction)Ordered By: Keron Maciel on 09-22-2023 HbA1c (Bld) [Mass fraction] 6.4 % 3.8-5.6 [facility] Comment on above: Normal < 5.7 % Predi abetic 5.7 - 6.4 % Diabetic >or= 6.5 % Please note range changes. MR/THERESA.Dinorah 09-14-2023 MR/BMS.[facility] [address] [place], [place] [address] OFFICE VISIT Date of Service: 09/14/23 MR#: [id number] Acct: [id number] Name: OLMAN SYED Rep #: [id number] : 1935 Provider: Dr. Keron fonseca MD Age/Sex: 88/M Location: [facility] Status: Signed with Addenda ADDENDUM by Dr. Keron Maciel MD on 10/02/23 at 0821 HPI Details: OLMAN SYED, is a 88 M who presents to the office today for Assessment and Plan Assessment and Plan (1) Diabetes mellitus type 2 in obese: Status: Acute (2) Obesity: Status: Acute Qualifiers: Obesity type: due to excess calories Obesity classification: adult class 3 (BMI >= 40) Serious obesity comorbidity presence: with serious comorbidity Body mass index: BMI 40.0-44.9 Qualified Code(s): E66.01 - Morbid (severe) obesity due to excess calories; Z68.41 - Body mass index [BMI] 40.0-44.9, adult (3) B12 nutritional deficiency: Status: Acute (4) Atherosclerotic heart disease of [place] coronary artery without angina pectoris: Status: Chronic Qualifiers: [place] vs. transplanted heart: [place] heart Qualified Code(s): I25.10 - Atherosclerotic heart disease of [place] coronary artery without angina pectoris (5) Essential (primary) hypertension: Status: Chronic (6) CKD (chronic kidney disease) stage 3, GFR 30-59 ml/min: Status: Chronic Qualifiers: Chronic kidney disease stage 3 subtype: stage 3a (GFR 45-59) Qualified Code(s): N18.31 - Chronic kidney disease, stage 3a (7) HLD (hyperlipidemia): Status: Chronic Qualifiers: Hyperlipidemia type: unspecified Qualified Code(s): E78.5 - Hyperlipidemia, unspecified Orders: Orders Comprehensive Metabolic Profil 09/22/23 E11.9 - Type 2 diabetes mellitus without complications, E66.9 - Obesity, unspecified, F41.9 - Anxiety disorder, unspecified, G20 - Parkinson's disease, G47. 33 - Obstructive sleep apnea (adult) (pediatric), I10 - Essential (primary) hypertension, N18.3 - Chronic kidney disease, stage 3 (moderate), Z95.5 - Presence of coronary angioplasty implant and graft CBC W/Diff, Automated 09/22/23 E11.9 - Type 2 diabetes mellitus without complications, E66.9 - Obesity, unspecified, E78.5 - Hyperlipidemia, unspecified, F41.9 - Anxiety disorder, unspecified, G20 - Parkinson's disease, G47.33 - Obstructive sleep apnea (adult) (pediatric), I10 - Essential (primary) hypertension, N18.3 - Chronic kidney disease, stage 3 (moderate), Z95.5 - Presence of coronary angioplasty implant and graft Lipid Profile 09/22/23 E11.9 - Type 2 diabetes mellitus without complications, E66.9 - Obesity, unspecified, E78.5 - Hyperlipidemia, unspecified, F41.9 - Anxiety disorder, unspecified, G20 - Parkinson's disease, G47.33 - Obstructive sleep apnea (adult) (pediatric), I10 - Essential (primary) hypertension, N18.3 - Chronic kidney disease, stage 3 (moderate), Z13.220 - Encounter for screening for lipoid disorders, Z95.5 - Presence of coronary angioplasty implant and graft Hemoglobin A1c 09/22/23 E11.9 - Type 2 diabetes mellitus without complications, E66.9 - Obesity, unspecified, F41.9 - Anxiety disorder, unspecified, G20 - Parkinson's disease, G47.33 - Obstructive sleep apnea (adult) (pediatric), I10 - Essential (primary) hypertension, N18.3 - Chronic kidney disease, stage 3 (moderate), R73.9 - Hyperglycemia, unspecified, Z95.5 - Presence of coronary angioplasty implant and graft Thyroid Stim Hormone (TSH) 09/22/23 E11.9 - Type 2 diabetes mellitus without complications, E66.9 - Obesity, unspecified, E78.5 - Hyperlipidemia, unspecified, F41.9 - Anxiety disorder, unspecified, G20 - Parkinson's disease, G47.33 - Obstructive sleep apnea (adult) (pediatric), I10 - Essential (primary) hypertension, N18.3 - Chronic kidney disease, stage 3 (moderate), Z95.5 - Presence of coronary angioplasty implant and graft Vitamin D,25 Hydroxy 09/22/23 E11.9 - Type 2 diabetes mellitus without complications, E55.9 - Vitamin D deficiency, unspecified, E66.9 - Obesity, unspecified, F41.9 - Anxiety disorder, unspecified, G20 - Parkinson's disease, G47.33 - Obstructive sleep apnea (adult) (pediatric), I10 - Essential (primary) hypertension, N18.3 - Chronic kidney disease, stage 3 (moderate), Z95.5 - Presence of coronary angioplasty implant and graft Plan Details Additional Comments: Addendum: The patient would benefit from wearing diabetic shoes and custom inserts. 10/02/23820 Date Keron Maciel MD cc: * Signed Intake Vital Signs 03/15/23 14:57 08/10/23 15:48 09/14/23 15:11 Height 5 ft 3 in 5 ft 4 in 5 ft 4 in Weight: 226 lb BMI 38.7 BP 167/91 H Blood Pressure Location Lt brachial Position Sitting Respiration 17 Pulse 87 Pulse Source NIBP Temp 97.3 F L Temp Source Temporal Pulse Oximetry (%) 97 Oxygen Deliver (more content not included)... Normal [facility] No Panel Informationon 08-10 Influenza Types A,B Rapid (Clinic) Negative [facility] POC SARS CoV-2 Antigen Negative [facility] Urgent Care Visit Reporton 0 08-10-2023 Urgent Care Visit Report [facility] [address], [address] [place] [address] OFFICE VISIT Date of Service: 08/10/23 MR#: [id number] Acct: [id number] Name: OLMAN SYED Rep #: [id number] : 1935 Provider: NEERAJ Chery Age/Sex: 87/M Location[place] [facility] Status: Signed Intake Vital Signs 07/24/23 14:04 08/10/23 15:48 Height 5 ft 4 in 5 ft 4 in Weight: 230 lb 230 lb BMI 39.4 39.4 BP 136/90 H 128/84 H Blood Pressure Location Lt brachial Lt brachial Position Sitting Sitting Respiration 19 H 14 Pulse 80 78 Pulse Source Monitor Monitor Temp 98.7 F 97.7 F L Temp Source Temporal Temporal Pulse Oximetry (%) 96 94 Oxygen Delivery Method room air room air Intake Visit Reasons: Cough Chief Complaint: Cough and congestion Allergies lisinopril Allergy (Mild, Verified 08/10/23 15:48) Cough losartan Adverse Reaction (Intermediate, Verified 08/10/23 15:48) Jitters metoprolol Adverse Reaction (Intermediate, Verified 08/10/23 15:48) Jitters pioglitazone HCl [From Actos] Adverse Reaction (Mild, Verified 08/10/23 15:48) Upset Stomach PFSH Medical History Acute otitis media, left Anemia Appendicitis Atherosclerotic heart disease of [place] coronary artery without angina pectoris Benign prostatic hypertrophy BMI 40.0-44.9, adult Body mass index (BMI) 40.0-44.9, adult BPH (benign prostatic hyperplasia) Chest pain CKD (chronic kidney disease) stage 3, GFR 30-59 ml/min Cough Debility Diabetes mellitus type 2 in obese 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 Dyspnea Essential (primary) hypertension GERD (gastroesophageal reflux disease) GERD (gastroesophageal reflux disease) Hiatal hernia History of CVA (cerebrovascular accident) HLD (hyperlipidemia) Hypothyroidism Iron deficiency anemia 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 Nephrolithiasis Nonrheumatic tricuspid (valve) insufficiency Obesity Obesity DANYELL (obstructive sleep apnea) Osteoarthritis Palpitations Premature ventricular contractions Right bundle branch block (RBBB) with left anterior fascicular block Right flank pain Shortness of breath Stroke/cerebrovascular accident Syncope and collapse Upper respiratory infection Vocal cord dysfunction Surgical History History of appendectomy History of back surgery History of coronary artery stent placement (07/01/15) History of left heart catheterization (11/01/21) History of lymph node biopsy History of right and left heart catheterization (07/02/18) Family History Mother CAD (coronary artery disease) CVA (cerebral vascular accident) Brother CAD (coronary artery disease) Myocardial infarction Diabetes Heart disease Daughter Asthma Father Cancer bone cancer Sister Breast cancer Asthma Diabetes Heart disease Sister Cardiomyopathy Social History Smoking Status: Former smoker pack-years: 2 how long ago did patient quit smokin+ years ago alcohol intake: former substance use type: does not use caffeine: Yes Type: coffee Number of servings: 2 what type of physical activity do you participate in: none seatbelt use: always do you feel safe at home: Yes HPI HPI Chief Complaint: Cough and congestion Details: OLMAN SYED, is a 87 M who presents to the office today for complaint of cough and congestion for the past 2 days. Patient states that the cough is kept him up at night. He denies hemoptysis, shortness of breath or difficulty breathing. No fever, chills, sweats. No nausea, vomiting, diarrhea. No other associated symptoms or alleviating/aggravatin g factors. ROS Const Constitutional: No other (As above) Exam Const General: cooperative and well developed HENMT Head: normal to inspection and atraumatic Ears: hearing grossly normal bilaterally Nose: nasal discharge clear Face and sinus: normal facial exam Mouth: oral mucosae normal Throat: abnormal tonsil bilaterally hypertrophy 1+ Resp Effort Inspection: normal respiratory effort and no audible wheezes Auscultation: Bilateral: Clear to Auscultation Cardio Palpation: normal PMI Rate: regular rate Rhythm: regular rhythm Neuro General: patient alert and CN's II-XI intact bilaterally Psych Appearance: grossly normal Mental Status: mental status grossly normal Results POC FLU A B Office Flu A B Negative FLU A B Last Edit by Ana Nickerson on 08/10/23 16:00 POC SARS AG POC SARS AG Negative Last Edit by Ana Nickerson on 08/10/23 16:00 Coding Level of Care Code Off vis,est,level 3 Diagnoses Acute bronchitis J20.9 Assessment and Plan Assessment and Plan (more content not included)... Normal [facility] Absolute lymphocyte countOrd ered By: Junior Duenas on 07-16-2023 Lymphocytes Auto (Unsp spec) [#/Vol] 1.30 10*3/uL 0.83-4.51 [facility] Automated lymphocyte count a s percentage of total leukocytesOrdered By: Junior Duenas on 07-16-2023 Lymphocytes/100 WBC Auto (Unsp spec) 18.3 % 19-41 [facility] Basophil percentageOrdered B y: Junior Duenas on 07-16-2023 Basophils/100 WBC (Bld) 0.8 % 0-1 [facility] Chloride [Moles/Vol] 105 mmol/L 98-107 [facility] Eosinophils/100 WBC (Bld) 3.2 % 0-5 [facility] Glucose [Mass/Vol] 107 mg/dL 74-106 [facility] Comment on above: Fasting Glucose resu lt from 100 to 125 mg/dL suggests IMPAIRED HOMEOSTASIS per A.D.A. criteria. Hemoglobin (Bld) [Mass/Vol] 12.4 g/dL 13.0-16.5 [facility] Monocytes/100 WBC (Bld) 9.9 % 0-10 [facility] Neutrophils (Bld) [#/Vol] 4.8 10*3/uL 2.0-7.7 [facility] Neutrophils/100 WBC (Bld) 67.2 % 47-70 [facility] Potassium [Moles/Vol] 4.6 mmol/L 3.5-5.1 [facility] Sodium [Moles/Vol] 138 mmol/L 136-145 [facility] WBC (Bld) [#/Vol] 7.1 10*3/uL 4.4-11.0 [facility] Determination of erythrocyte mean corpuscular volume (MCV)Ordered By: Junior Duenas on 07-16-2023 MCV (RBC) [Entitic vol] 90.0 fL 80-94 [facility] Erythrocyte distribution wid th ratioOrdered By: Junior Duenas on 07-16-2023 Erythrocyte distribution width (RBC) [Ratio] 15.5 % 11.6-14.6 [facility] Erythrocyte distribution wid th standard deviationOrdered By: Junior Duenas on 07-16-2023 Erythrocyte distribution width (RBC) [Entitic vol] 51.0 fL 35.1-43.9 [facility] Hematocrit Auto (Bld) [Volum e fraction]Ordered By: Junior Duenas on 07-16-2023 Hematocrit (Bld) [Volume fraction] 38.9 % 40-54 [facility] Immature granulocytes/100 WB C Auto (Bld)Ordered By: Junior Duenas on 07-16-2023 Immature granulocytes/100 WBC (Bld) 0.600 % 0.0-0.9 [facility] Comment on above: IG% - Immature Granu locytes (promyelocytes, myelocytes and metamyelocytes) > 1% indicates that a LEFT SHIFT is Present. Laboratory - Chemistry and C hemistry - challengeOrdered By: Junior Duenas on 07-16-2023 CO2 [Moles/Vol] 23.0 mmol/L 21.0-32.0 [facility] Natriuretic peptide B (Bld) [Mass/Vol] 76.2 pg/mL 0-100 [facility] Urea nitrogen/Creatinine [Mass ratio] 15.5 mg/mg 10-20 [facility] Laboratory - Hematology and Cell countsOrdered By: Junior Duenas on 07-16-2023 MCH (RBC) [Entitic mass] 28.7 pg 27.0-32.0 [facility] MCHC (RBC) [Mass/Vol] 31.9 g/dL 32-36 [facility] Nucleated RBC/100 WBC (Bld) [Ratio] 0 % 0-5 [facility] Platelets (Bld) [#/Vol] 269 10*3/uL 150-450 [facility] Laboratory - Microbiology an d Antimicrobial susceptibilityOrdered By: Junior Duenas on 07-16-2023 SARS-CoV-2 (COVID-19) RNA VÍCTOR+probe Ql (Unsp spec) [facility] No Panel InformationOrdered By: Junior Duenas on 07-16-2023 Troponin I High Sensitivity 18 pg/mL 3.0-78.0 [facility] Comment on above: Please Note: New Citl[place] t Units and Gender Specific Reference Ranges. For more information see Policy Stat Procedure Phenix High Sensitivity Troponin (TNIH) and attachments. D-Dimer Quantitative (PE/DVT) 0.61 FEU/ug/m 0.27-0.49 [facility] Comment on above: D-Dimer ELEVATED (>0 .49): Additional studies and clinicalassessments are indicated to conclude diagnosis of:Deep Vein Thrombosis (DVT) or Pulmonary Embolism (PE)CRITICAL VALUE VERIFIED. CALLED TO JUNIOR DUENAS NP07/16/23 [id number] Eliezer Moncada.RESULTS READ BACK BY SAME . Estimated Creatinine Clearance Calc 29.81 ml/min [facility] Estimated GFR (MDRD) Amer 41 mL/min >60 [facility] Comment on above: GFR Calc Estimated GFR (MDRD) Non-Af Amer 34 mL/min >60 [facility] Comment on above: Non- GFR Calc Platelet mean volume Torey-Ec ker (Bld) [Entitic vol]Ordered By: Junior Duenas on 07-16-2023 Platelet mean volume (Bld) [Entitic vol] 9.1 fL 6.2-12.0 [facility] RBC Auto (Bld) [#/Vol]Ordere d By: Junior Duenas on 07-16-2023 RBC (Bld) [#/Vol] 4.32 10*6/uL 4.6-6.2 [facility] Serum or plasma calcium odilon urement (mass/volume)Ordered By: Junior Duenas on 07-16-2023 Calcium [Mass/Vol] 10.0 mg/dL 8.5-10.1 [facility] Serum or plasma creatinine m easurement (mass/volume)Ordered By: Junior Duenas on 07-16-2023 Creatinine [Mass/Vol] 2.00 mg/dL 0.70-1.30 [facility] Comment on above: The validity of the calculated GFR & GFRAA in patients over 70 years has not been determined. Clinical correlation is essential. Serum or plasma urea nitroge n measurement (mass/volume)Ordered By: Junior Duenas on 07-16-2023 Urea nitrogen [Mass/Vol] 31 mg/dL 7-18 [facility] Thin prep Papanicolaou smear with manual screeningOrdered By: Junior Duenas on 07-16-2023 Thin prep Papanicolaou smear with manual screening 10 5-15 [facility] Absolute lymphocyte countOrd ered By: Dr. Maciel on 09-28-2022 Lymphocytes Auto (Unsp spec) [#/Vol] 1.75 10*3/uL 0.83-4.51 [facility] Basophil percentageOrdered B y: Dr. Maciel on 09-28-2022 Basophils/100 WBC (Bld) 0.7 % 0-1 [facility] Bilirubin [Mass/Vol] 0.60 mg/dL 0.20-1.00 [facility] Comment on above: For patients on eltr ombopag therapy, use of Dimension Phenix TBIL is not recommended. Chloride [Moles/Vol] 103 mmol/L 98-107 [facility] Cholesterol [Mass/Vol] 152 mg/dL <200 [facility] Comment on above: <200 mg/dL Desirable 200-240 mg/dL Borderline >240 mg/dL High Risk Eosinophils/100 WBC (Bld) 3.8 % 0-5 [facility] Glucose [Mass/Vol] 61 mg/dL 74-106 [facility] Neutrophils (Bld) [#/Vol] 4.0 10*3/uL 2.0-7.7 [facility] Neutrophils/100 WBC (Bld) 58.5 % 47-70 [facility] Potassium [Moles/Vol] 4.2 mmol/L 3.5-5.1 [facility] Protein [Mass/Vol] 6.9 g/dL 6.4-8.2 [facility] Sodium [Moles/Vol] 137 mmol/L 136-145 [facility] Triglyceride [Mass/Vol] 150 mg/dL <199 [facility] Comment on above: The drugs N-Acetylcy steine and Metamizole may falsely depress this assay.Serum Triglycerides Reference Interval Normal <150 mg/dL Borderline high 150 - 199 mg/dL High 200 - 499 mg/dL Very High > or = 500 mg/dL WBC (Bld) [#/Vol] 6.8 10*3/uL 4.4-11.0 [facility] Blood erythrocytes count (nu mber/volume)Ordered By: Dr. Maciel on 09-28-2022 RBC (Bld) [#/Vol] 4.33 10*6/uL 4.6-6.2 [facility] Blood hemoglobin measurement (mass/volume)Ordered By: Dr. Maciel on 09-28-2022 Hemoglobin (Bld) [Mass/Vol] 12.9 g/dL 13.0-16.5 [facility] Blood lymphocytes/100 leukoc ytesOrdered By: Dr. Maciel on 09-28-2022 Lymphocytes/100 WBC (Bld) 25.8 % 19-41 [facility] Blood monocytes/100 leukocyt esOrdered By: Dr. Maciel on 09-28-2022 Monocytes/100 WBC (Bld) 10.6 % 0-10 [facility] Blood platelet mean volumeOr dered By: Dr. Maciel on 09-28-2022 Platelet mean volume (Bld) [Entitic vol] 9.2 fL 6.2-12.0 [facility] Determination of erythrocyte mean corpuscular volume (MCV)Ordered By: Dr. Maciel on 09-28-2022 MCV (RBC) [Entitic vol] 94.7 fL 80-94 [facility] Hematocrit Auto (Bld) [Volum e fraction]Ordered By: Dr. Maciel on 09-28-2022 Hematocrit (Bld) [Volume fraction] 41.0 % 40-54 [facility] Laboratory - Chemistry and C hemistry - challengeOrdered By: Dr. Maciel on 09-28-2022 ALP [Catalytic activity/Vol] 28 U/L 45-117 [facility] ALT [Catalytic activity/Vol] 10 U/L 16-61 [facility] CO2 [Moles/Vol] 29.0 mmol/L 21.0-32.0 [facility] Free T4 [Mass/Vol] 0.94 ng/dL 0.76-1.46 [facility] Globulin (S) [Mass/Vol] 3.2 g/dL 2.2-4.2 [facility] Magnesium [Mass/Vol] 2.0 mg/dL 1.6-2.6 [facility] Urea nitrogen/Creatinine [Mass ratio] 14.7 mg/mg 10-20 [facility] Laboratory - Hematology and Cell countsOrdered By: Dr. Maciel on 09-28-2022 Erythrocyte distribution width (RBC) [Entitic vol] 55.9 fL 35.1-43.9 [facility] Erythrocyte distribution width (RBC) [Ratio] 15.9 % 11.6-14.6 [facility] Immature granulocytes/100 WBC (Bld) 0.600 % 0.0-0.9 [facility] Comment on above: IG% - Immature Granu locytes (promyelocytes, myelocytes and metamyelocytes) > 1% indicates that a LEFT SHIFT is Present. MCH (RBC) [Entitic mass] 29.8 pg 27.0-32.0 [facility] Nucleated RBC/100 WBC (Bld) [Ratio] 0 % 0-5 [facility] MCHC Auto (RBC) [Mass/Vol]Or dered By: Dr. Maciel on 09-28-2022 MCHC (RBC) [Mass/Vol] 31.5 g/dL 32-36 [facility] No Panel InformationOrdered By: Dr. Maciel on 09-28-2022 D-Dimer Quantitative (PE/DVT) 0.33 FEU/ug/m 0.27-0.49 [facility] Comment on above: NORMAL D-Dimer level (<0.50) indicates no DVT or PE. Estimated GFR (MDRD) Amer 55 mL/min >60 [facility] Comment on above: GFR Calc Estimated GFR (MDRD) Non-Af Amer 45 mL/min >60 [facility] Comment on above: Non- GFR Calc Free Triiodothyronine (T3) pg/dL 2.1 pg/mL 2.18-3.98 [facility] Thyroid Stimulating Hormone (TSH) 2.34 uIU/mL 0.358-3.74 [facility] Platelets bldOrdered By: Dr. Maciel on 09-28-2022 Platelets (Bld) [#/Vol] 276 10*3/uL 150-450 [facility] Serum or plasma albumin odilon urement (mass/volume)Ordered By: Dr. Maciel on 09-28-2022 Albumin [Mass/Vol] 3.7 g/dL 3.2-5.0 [facility] Serum or plasma albumin/glob ulin mass ratioOrdered By: Dr. Maciel on 09-28-2022 Albumin/Globulin [Mass ratio] 1.2 {ratio} 0.9-2.4 [facility] Serum or plasma calcium odilon urement (mass/volume)Ordered By: Dr. Maciel on 09-28-2022 Calcium [Mass/Vol] 9.3 mg/dL 8.5-10.1 [facility] Serum or plasma cholesterol in HDL measurement (mass/volume)Ordered By: Dr. Maciel on 09-28-2022 Cholesterol in HDL [Mass/Vol] 57 mg/dL >40 [facility] Comment on above: The drugs N-Acetylcy steine and Metamizole may falsely depress this assay. Reference Range HDL <40 mg/dL Low HDL Cholesterol HDL >or= 60 mg/dL High HDL Cholesterol Serum or plasma cholesterol in VLDL measurement (mass/volume)Ordered By: Dr. Maciel on 09-28-2022 Cholesterol in VLDL [Mass/Vol] 30 mg/dL 5-40 [facility] Serum or plasma creatinine m easurement (mass/volume)Ordered By: Dr. Maciel on 09-28-2022 Creatinine [Mass/Vol] 1.56 mg/dL 0.70-1.30 [facility] Comment on above: The validity of the calculated GFR & GFRAA in patients over 70 years has not been determined. Clinical correlation is essential. Serum or plasma low density lipoprotein (LDL) cholesterol measurement (mass/volume)Ordered By: Dr. Maciel on 09-28-2022 Cholesterol in LDL [Mass/Vol] 65 mg/dL 0-130 [facility] Serum or plasma urea nitroge n measurement (mass/volume)Ordered By: Dr. Maciel on 09-28-2022 Urea nitrogen [Mass/Vol] 23 mg/dL 7-18 [facility] Thin prep Papanicolaou smear with manual screeningOrdered By: Dr. Maciel on 09-28-2022 Thin prep Papanicolaou smear with manual screening 20 U/L 15-37 [facility] Thin prep Papanicolaou smear with manual screening 5 5-15 [facility] Whole blood hemoglobin A1c/t otal hemoglobin ratio (mass fraction)Ordered By: Dr. Maciel on 09-28-2022 HbA1c (Bld) [Mass fraction] 6.3 % 3.8-5.6 [facility] Comment on above: Normal < 5.7 % Predi abetic 5.7 - 6.4 % Diabetic >or= 6.5 % Please note range changes. Basophil percentageon 2021 Chloride [Moles/Vol] 101 mmol/L 98-107 [facility] Work Phone: Glucose [Mass/Vol] 182 mg/dL 74-106 [facility] Work Phone: Comment on above: Fasting Glucose resu lt greater than or equal to 126 mg/dL suggests DIABETES MELLITUS per A.D.A. criteria. Potassium [Moles/Vol] 4.2 mmol/L 3.5-5.1 [facility] Work Phone: Sodium [Moles/Vol] 143 mmol/L 136-145 [facility] Work Phone: Iron measurement (mass/mass) on 03-03-2022 Iron (Unsp spec) [Mass/Mass] 215 ug/dL 65-175 [facility] Work Phone: Laboratory - Chemistry and C hemistry - challengeon 03-03-2022 CO2 [Moles/Vol] 30.0 mmol/L 21.0-32.0 [facility] Work Phone: Urea nitrogen/Creatinine [Mass ratio] 12.4 mg/mg 10-20 [facility] Work Phone: No Panel Informationon 03-03 Estimated GFR (MDRD) Amer 53 mL/min >60 [facility] Work Phone: Comment on above: GFR Calc Estimated GFR (MDRD) Non-Af Amer 44 mL/min >60 [facility] Work Phone: Comment on above: Non- GFR Calc Total Iron Binding Capacity 430 ug/dL 250-450 [facility] Work Phone: [phone] Serum or plasma calcium odilon urement (mass/volume)on 03-03-2022 Calcium [Mass/Vol] 9.7 mg/dL 8.5-10.1 [facility] Work Phone: [phone] Serum or plasma creatinine m easurement (mass/volume)on 03-03-2022 Creatinine [Mass/Vol] 1.61 mg/dL 0.70-1.30 [facility] Work Phone: [phone] Comment on above: The validity of the calculated GFR & GFRAA in patients over 70 years has not been determined. Clinical correlation is essential. Serum or plasma iron saturat ion measurement (mass fraction)on 03-03-2022 Iron saturation [Mass fraction] 50.0 % 15.0-55.0 [facility] Work Phone: [phone] Serum or plasma urea nitroge n measurement (mass/volume)on 03-03-2022 Urea nitrogen [Mass/Vol] 20 mg/dL 7-18 [facility] Work Phone: [phone] Thin prep Papanicolaou smear with manual screeningon 03-03-2022 Thin prep Papanicolaou smear with manual screening 12 10-31 [facility] Work Phone: [phone] Absolute lymphocyte counton 02-16-2022 Lymphocytes Auto (Unsp spec) [#/Vol] 1.20 10*3/uL 0.83-4.51 [facility] Work Phone: [phone] Basophil percentageon 2021 Basophils/100 WBC (Bld) 0.9 % 0-1 [facility] Work Phone: [phone] Bilirubin [Mass/Vol] 0.70 mg/dL 0.20-1.00 [facility] Work Phone: [phone] Comment on above: For patients on eltr ombopag therapy, use of Dimension Phenix TBIL is not recommended. Chloride [Moles/Vol] 103 mmol/L 98-107 [facility] Work Phone: Eosinophils/100 WBC (Bld) 3.2 % 0-5 [facility] Work Phone: [phone] Glucose [Mass/Vol] 133 mg/dL 74-106 [facility] Work Phone: [phone] Comment on above: Fasting Glucose resu lt greater than or equal to 126 mg/dL suggests DIABETES MELLITUS per A.D.A. criteria. Neutrophils (Bld) [#/Vol] 3.3 10*3/uL 2.0-7.7 [facility] Work Phone: Neutrophils/100 WBC (Bld) 61.6 % 47-70 [facility] Work Phone: [phone] Potassium [Moles/Vol] 5.5 mmol/L 3.5-5.1 [facility] Work Phone: [phone] Comment on above: Moderate Hemolysis, Result may be falsely increased. Protein [Mass/Vol] 7.1 g/dL 6.4-8.2 [facility] Work Phone: [phone] Sodium [Moles/Vol] 139 mmol/L 136-145 [facility] Work Phone: [phone] WBC (Bld) [#/Vol] 5.4 10*3/uL 4.4-11.0 [facility] Work Phone: [phone] Blood erythrocytes count (nu mber/volume)on 02-16-2022 RBC (Bld) [#/Vol] 3.85 10*6/uL 4.6-6.2 [facility] Work Phone: [phone] Blood hemoglobin measurement (mass/volume)on 02-16-2022 Hemoglobin (Bld) [Mass/Vol] 11.1 g/dL 13.0-16.5 [facility] Work Phone: Blood lymphocytes/100 leukoc yteson 02-16-2022 Lymphocytes/100 WBC (Bld) 22.4 % 19-41 [facility] Work Phone: [phone] Blood monocytes/100 leukocyt eson 02-16-2022 Monocytes/100 WBC (Bld) 11.2 % 0-10 [facility] Work Phone: [phone] Blood platelet mean volumeon 02-16-2022 Platelet mean volume (Bld) [Entitic vol] 9.1 fL 6.2-12.0 [facility] Work Phone: [phone] Determination of erythrocyte mean corpuscular volume (MCV)on 02-16-2022 MCV (RBC) [Entitic vol] 89.9 fL 80-94 [facility] Work Phone: [phone] Hematocrit Auto (Bld) [Volum e fraction]on 02-16-2022 Hematocrit (Bld) [Volume fraction] 34.6 % 40-54 [facility] Work Phone: [phone] Iron measurement (mass/mass) on 02-16-2022 Iron (Unsp spec) [Mass/Mass] 63 ug/dL 65-175 [facility] Work Phone: [phone] Comment on above: Moderate Hemolysis, Result may be falsely increased. Laboratory - Chemistry and C hemistry - challengeon 02-16-2022 ALP [Catalytic activity/Vol] 26 U/L 45-117 [facility] Work Phone: [phone] ALT [Catalytic activity/Vol] 16 U/L 16-61 [facility] Work Phone: [phone] CO2 [Moles/Vol] 27.0 mmol/L 21.0-32.0 [facility] Work Phone: [phone] Free T4 [Mass/Vol] 0.90 ng/dL 0.76-1.46 [facility] Work Phone: [phone] Globulin (S) [Mass/Vol] 3.4 g/dL 2.2-4.2 [facility] Work Phone: [phone] Urea nitrogen/Creatinine [Mass ratio] 13.3 mg/mg 10-20 [facility] Work Phone: [phone] Laboratory - Hematology and Cell countson 02-16-2022 Erythrocyte distribution width (RBC) [Entitic vol] 57.6 fL 35.1-43.9 [facility] Work Phone: Erythrocyte distribution width (RBC) [Ratio] 17.4 % 11.6-14.6 [facility] Work Phone: [phone] Immature granulocytes/100 WBC (Bld) 0.700 % 0.0-0.9 [facility] Work Phone: [phone] Comment on above: IG% - Immature Granu locytes (promyelocytes, myelocytes and metamyelocytes) > 1% indicates that a LEFT SHIFT is Present. MCH (RBC) [Entitic mass] 28.8 pg 27.0-32.0 [facility] Work Phone: [phone] Nucleated RBC/100 WBC (Bld) [Ratio] 0 % 0-5 [facility] Work Phone: [phone] MCHC Auto (RBC) [Mass/Vol]on 02-16-2022 MCHC (RBC) [Mass/Vol] 32.1 g/dL 32-36 [facility] Work Phone: [phone] No Panel Informationon 02-16 Estimated GFR (MDRD) Amer 46 mL/min >60 [facility] Work Phone: [phone] Comment on above: GFR Calc Estimated GFR (MDRD) Non-Af Amer 38 mL/min >60 [facility] Work Phone: [phone] Comment on above: Non- GFR Calc Free Triiodothyronine (T3) pg/dL 2.5 pg/mL 2.18-3.98 [facility] Work Phone: [phone] Prostate Specific Antigen Screen 1.22 ng/mL 0.00-4.00 [facility] Work Phone: [phone] Comment on above: This test was perfor med using the TPSA assay method for the[facility]. Values obtained with differentassay methods cannot be used interchangably.When changing PSA assays in the course of monitoring apatient, additional sequential testing should be carriedout to confirm baseline values. Thyroid Stimulating Hormone (TSH) 2.23 uIU/mL 0.358-3.74 [facility] Work Phone: [phone] Total Iron Binding Capacity 454 ug/dL 250-450 [facility] Work Phone: Comment on above: Moderate Hemolysis, Result may be falsely increased. Vitamin D 25-Hydroxy 59.5 ng/mL [facility] Work Phone: Comment on above: Vitamin D 25(OH) Sta tus Range Deficiency <20 ng/mL (50nmol/L) Insufficiency 20 - 30 ng/mL (50 - 75 nmol/L) Sufficiency 30 - 100 ng/mL (75 - 250 nmol/L) Toxicity >100 ng/mL (>250 nmol/L) Platelets bldon 02-16-2022 Platelets (Bld) [#/Vol] 289 10*3/uL 150-450 [facility] Work Phone: Serum or plasma albumin odilon urement (mass/volume)on 02-16-2022 Albumin [Mass/Vol] 3.7 g/dL 3.2-5.0 [facility] Work Phone: Serum or plasma albumin/glob ulin mass ratioon 02-16-2022 Albumin/Globulin [Mass ratio] 1.1 {ratio} 0.9-2.4 [facility] Work Phone: Serum or plasma calcium odilon urement (mass/volume)on 02-16-2022 Calcium [Mass/Vol] 10.0 mg/dL 8.5-10.1 [facility] Work Phone: Serum or plasma creatinine m easurement (mass/volume)on 02-16-2022 Creatinine [Mass/Vol] 1.80 mg/dL 0.70-1.30 [facility] Work Phone: Comment on above: The validity of the calculated GFR & GFRAA in patients over 70 years has not been determined. Clinical correlation is essential. Serum or plasma iron saturat ion measurement (mass fraction)on 02-16-2022 Iron saturation [Mass fraction] 13.9 % 15.0-55.0 [facility] Work Phone: Serum or plasma urea nitroge n measurement (mass/volume)on 02-16-2022 Urea nitrogen [Mass/Vol] 24 mg/dL 7-18 [facility] Work Phone: Thin prep Papanicolaou smear with manual screeningon 02-16-2022 Thin prep Papanicolaou smear with manual screening 30 U/L 15-37 [facility] Work Phone: Comment on above: Moderate Hemolysis, Result may be falsely increased. Thin prep Papanicolaou smear with manual screening 9 5-15 [facility] Work Phone: Laboratory - Hematology and Cell countson 02-14-2022 HbA1c (Bld) [Mass fraction] 6.3 % 4.2-6.3 [facility] Work Phone: Absolute lymphocyte counton 10-26-2021 Lymphocytes Auto (Unsp spec) [#/Vol] 1.47 10*3/uL 0.83-4.51 [facility] Work Phone: Basophil percentageon 2021 Basophils/100 WBC (Bld) 0.7 % 0-1 [facility] Work Phone: Chloride [Moles/Vol] 103 mmol/L 98-107 [facility] Work Phone: Eosinophils/100 WBC (Bld) 3.4 % 0-5 [facility] Work Phone: Glucose [Mass/Vol] 109 mg/dL 74-106 [facility] Work Phone: Comment on above: Fasting Glucose resu lt from 100 to 125 mg/dL suggests IMPAIRED HOMEOSTASIS per A.D.A. criteria. Neutrophils (Bld) [#/Vol] 3.3 10*3/uL 2.0-7.7 [facility] Work Phone: Neutrophils/100 WBC (Bld) 58.1 % 47-70 [facility] Work Phone: Potassium [Moles/Vol] 4.7 mmol/L 3.5-5.1 [facility] Work Phone: Sodium [Moles/Vol] 138 mmol/L 136-145 [facility] Work Phone: WBC (Bld) [#/Vol] 5.6 10*3/uL 4.4-11.0 [facility] Work Phone: Blood erythrocytes count (nu mber/volume)on 10-26-2021 RBC (Bld) [#/Vol] 4.32 10*6/uL 4.6-6.2 [facility] Work Phone: Blood hemoglobin measurement (mass/volume)on 10-26-2021 Hemoglobin (Bld) [Mass/Vol] 11.6 g/dL 13.0-16.5 [facility] Work Phone: Blood lymphocytes/100 leukoc yteson 10-26-2021 Lymphocytes/100 WBC (Bld) 26.1 % 19-41 [facility] Work Phone: [phone] Blood monocytes/100 leukocyt eson 10-26-2021 Monocytes/100 WBC (Bld) 11.0 % 0-10 [facility] Work Phone: Blood platelet mean volumeon 10-26-2021 Platelet mean volume (Bld) [Entitic vol] 9.3 fL 6.2-12.0 [facility] Work Phone: Determination of erythrocyte mean corpuscular volume (MCV)on 10-26-2021 MCV (RBC) [Entitic vol] 86.1 fL 80-94 [facility] Work Phone: Hematocrit Auto (Bld) [Volum e fraction]on 10-26-2021 Hematocrit (Bld) [Volume fraction] 37.2 % 40-54 [facility] Work Phone: Laboratory - Chemistry and C hemistry - challengeon 10-26-2021 CO2 [Moles/Vol] 28.0 mmol/L 21.0-32.0 [facility] Work Phone: Natriuretic peptide B (Bld) [Mass/Vol] 98.4 pg/mL 0-100 [facility] Work Phone: Urea nitrogen/Creatinine [Mass ratio] 14.4 mg/mg 10-20 [facility] Work Phone: Laboratory - Hematology and Cell countson 10-26-2021 Erythrocyte distribution width (RBC) [Entitic vol] 50.3 fL 35.1-43.9 [facility] Work Phone: Erythrocyte distribution width (RBC) [Ratio] 16.2 % 11.6-14.6 [facility] Work Phone: Immature granulocytes/100 WBC (Bld) 0.700 % 0.0-0.9 [facility] Work Phone: Comment on above: IG% - Immature Granu locytes (promyelocytes, myelocytes and metamyelocytes) > 1% indicates that a LEFT SHIFT is Present. MCH (RBC) [Entitic mass] 26.9 pg 27.0-32.0 [facility] Work Phone: Nucleated RBC/100 WBC (Bld) [Ratio] 0 % 0-5 [facility] Work Phone: [phone] MCHC Auto (RBC) [Mass/Vol]on 10-26-2021 MCHC (RBC) [Mass/Vol] 31.2 g/dL 32-36 [facility] Work Phone: No Panel Informationon 10-26 Estimated GFR (MDRD) Amer 56 mL/min >60 [facility] Work Phone: Comment on above: GFR Calc Estimated GFR (MDRD) Non-Af Amer 46 mL/min >60 [facility] Work Phone: Comment on above: Non- GFR Calc Platelets bldon 10-26-2021 Platelets (Bld) [#/Vol] 259 10*3/uL 150-450 [facility] Work Phone: Serum or plasma calcium odilon urement (mass/volume)on 10-26-2021 Calcium [Mass/Vol] 10.1 mg/dL 8.5-10.1 [facility] Work Phone: [phone] Serum or plasma creatinine m easurement (mass/volume)on 10-26-2021 Creatinine [Mass/Vol] 1.53 mg/dL 0.70-1.30 [facility] Work Phone: Comment on above: The validity of the calculated GFR & GFRAA in patients over 70 years has not been determined. Clinical correlation is essential. Serum or plasma urea nitroge n measurement (mass/volume)on 10-26-2021 Urea nitrogen [Mass/Vol] 22 mg/dL 7-18 [facility] Work Phone: Thin prep Papanicolaou smear with manual screeningon 10-26-2021 Thin prep Papanicolaou smear with manual screening 7 5-15 [facility] Work Phone: Absolute lymphocyte counton 10-13-2021 Lymphocytes Auto (Unsp spec) [#/Vol] 0.99 10*3/uL 0.83-4.51 [facility] Work Phone: Basophil percentageon 2021 Basophils/100 WBC (Bld) 0.9 % 0-1 [facility] Work Phone: [phone] Bilirubin [Mass/Vol] 0.70 mg/dL 0.20-1.00 [facility] Work Phone: Comment on above: For patients on eltr ombopag therapy, use of Dimension Phenix TBIL is not recommended. Chloride [Moles/Vol] 102 mmol/L 98-107 [facility] Work Phone: Cholesterol [Mass/Vol] 169 mg/dL <200 [facility] Work Phone: Comment on above: <200 mg/dL Desirable 200-240 mg/dL Borderline >240 mg/dL High Risk Eosinophils/100 WBC (Bld) 3.1 % 0-5 [facility] Work Phone: Glucose [Mass/Vol] 144 mg/dL 74-106 [facility] Work Phone: Comment on above: Fasting Glucose resu lt greater than or equal to 126 mg/dL suggests DIABETES MELLITUS per A.D.A. criteria. Neutrophils (Bld) [#/Vol] 2.9 10*3/uL 2.0-7.7 [facility] Work Phone: Neutrophils/100 WBC (Bld) 62.2 % 47-70 [facility] Work Phone: [phone] Potassium [Moles/Vol] 4.2 mmol/L 3.5-5.1 [facility] Work Phone: [phone] Protein [Mass/Vol] 7.1 g/dL 6.4-8.2 [facility] Work Phone: [phone] Sodium [Moles/Vol] 137 mmol/L 136-145 [facility] Work Phone: [phone] Triglyceride [Mass/Vol] 247 mg/dL <199 [facility] Work Phone: [phone] Comment on above: The drugs N-Acetylcy steine and Metamizole may falsely depress this assay.Serum Triglycerides Reference Interval Normal <150 mg/dL Borderline high 150 - 199 mg/dL High 200 - 499 mg/dL Very High > or = 500 mg/dL WBC (Bld) [#/Vol] 4.6 10*3/uL 4.4-11.0 [facility] Work Phone: [phone] Blood erythrocytes count (nu mber/volume)on 10-13-2021 RBC (Bld) [#/Vol] 4.18 10*6/uL 4.6-6.2 [facility] Work Phone: [phone] Blood hemoglobin measurement (mass/volume)on 10-13-2021 Hemoglobin (Bld) [Mass/Vol] 11.2 g/dL 13.0-16.5 [facility] Work Phone: [phone] Blood lymphocytes/100 leukoc yteson 10-13-2021 Lymphocytes/100 WBC (Bld) 21.6 % 19-41 [facility] Work Phone: [phone] Blood monocytes/100 leukocyt eson 10-13-2021 Monocytes/100 WBC (Bld) 11.5 % 0-10 [facility] Work Phone: Blood platelet mean volumeon 10-13-2021 Platelet mean volume (Bld) [Entitic vol] 10.5 fL 6.2-12.0 [facility] Work Phone: [phone] Determination of erythrocyte mean corpuscular volume (MCV)on 10-13-2021 MCV (RBC) [Entitic vol] 86.4 fL 80-94 [facility] Work Phone: [phone] Hematocrit Auto (Bld) [Volum e fraction]on 10-13-2021 Hematocrit (Bld) [Volume fraction] 36.1 % 40-54 [facility] Work Phone: [phone] Laboratory - Chemistry and C hemistry - challengeon 10-13-2021 ALP [Catalytic activity/Vol] 27 U/L 45-117 [facility] Work Phone: [phone] ALT [Catalytic activity/Vol] 21 U/L 16-61 [facility] Work Phone: [phone] CO2 [Moles/Vol] 28.0 mmol/L 21.0-32.0 [facility] Work Phone: [phone] Cobalamin (Vitamin B12) [Mass/Vol] 891 pg/mL 211-911 [facility] Work Phone: [phone] Free T4 [Mass/Vol] 0.93 ng/dL 0.76-1.46 [facility] Work Phone: [phone] Globulin (S) [Mass/Vol] 3.4 g/dL 2.2-4.2 [facility] Work Phone: [phone] Urea nitrogen/Creatinine [Mass ratio] 15.2 mg/mg 10-20 [facility] Work Phone: [phone] Laboratory - Hematology and Cell countson 10-13-2021 Erythrocyte distribution width (RBC) [Entitic vol] 49.8 fL 35.1-43.9 [facility] Work Phone: [phone] Erythrocyte distribution width (RBC) [Ratio] 15.8 % 11.6-14.6 [facility] Work Phone: [phone] Immature granulocytes/100 WBC (Bld) 0.700 % 0.0-0.9 [facility] Work Phone: [phone] Comment on above: IG% - Immature Granu locytes (promyelocytes, myelocytes and metamyelocytes) > 1% indicates that a LEFT SHIFT is Present. MCH (RBC) [Entitic mass] 26.8 pg 27.0-32.0 [facility] Work Phone: [phone] Nucleated RBC/100 WBC (Bld) [Ratio] 0 % 0-5 [facility] Work Phone: [phone] MCHC Auto (RBC) [Mass/Vol]on 10-13-2021 MCHC (RBC) [Mass/Vol] 31.0 g/dL 32-36 [facility] Work Phone: No Panel Informationon 10-13 Estimated GFR (MDRD) Amer 63 mL/min >60 [facility] Work Phone: Comment on above: GFR Calc Estimated GFR (MDRD) Non-Af Amer 52 mL/min >60 [facility] Work Phone: Comment on above: Non- GFR Calc Free Triiodothyronine (T3) pg/dL 2.2 pg/mL 2.18-3.98 [facility] Work Phone: [phone] Thyroid Stimulating Hormone (TSH) 2.15 uIU/mL 0.358-3.74 [facility] Work Phone: [phone] Vitamin D 25-Hydroxy 67.7 ng/mL [facility] Work Phone: Comment on above: Vitamin D 25(OH) Sta tus Range Deficiency <20 ng/mL (50nmol/L) Insufficiency 20 - 30 ng/mL (50 - 75 nmol/L) Sufficiency 30 - 100 ng/mL (75 - 250 nmol/L) Toxicity >100 ng/mL (>250 nmol/L) Platelets bldon 10-13-2021 Platelets (Bld) [#/Vol] 238 10*3/uL 150-450 [facility] Work Phone: [phone] Serum or plasma albumin odilon urement (mass/volume)on 10-13-2021 Albumin [Mass/Vol] 3.7 g/dL 3.2-5.0 [facility] Work Phone: [phone] Serum or plasma albumin/glob ulin mass ratioon 10-13-2021 Albumin/Globulin [Mass ratio] 1.1 {ratio} 0.9-2.4 [facility] Work Phone: [phone] Serum or plasma calcium odilon urement (mass/volume)on 10-13-2021 Calcium [Mass/Vol] 9.5 mg/dL 8.5-10.1 [facility] Work Phone: [phone] Serum or plasma cholesterol in HDL measurement (mass/volume)on 10-13-2021 Cholesterol in HDL [Mass/Vol] 41 mg/dL >40 [facility] Work Phone: Comment on above: The drugs N-Acetylcy steine and Metamizole may falsely depress this assay. Reference Range HDL <40 mg/dL Low HDL Cholesterol HDL >or= 60 mg/dL High HDL Cholesterol Serum or plasma cholesterol in VLDL measurement (mass/volume)on 10-13-2021 Cholesterol in VLDL [Mass/Vol] 49 mg/dL 5-40 [facility] Work Phone: [phone] Serum or plasma creatinine m easurement (mass/volume)on 10-13-2021 Creatinine [Mass/Vol] 1.38 mg/dL 0.70-1.30 [facility] Work Phone: Comment on above: The validity of the calculated GFR & GFRAA in patients over 70 years has not been determined. Clinical correlation is essential. Serum or plasma low density lipoprotein (LDL) cholesterol measurement (mass/volume)on 10-13-2021 Cholesterol in LDL [Mass/Vol] 79 mg/dL 0-130 [facility] Work Phone: [phone] Serum or plasma urea nitroge n measurement (mass/volume)on 10-13-2021 Urea nitrogen [Mass/Vol] 21 mg/dL 7-18 [facility] Work Phone: [phone] Thin prep Papanicolaou smear with manual screeningon 10-13-2021 Thin prep Papanicolaou smear with manual screening 17 U/L 15-37 [facility] Work Phone: [phone] Thin prep Papanicolaou smear with manual screening 7 5-15 [facility] Work Phone: Laboratory - Hematology and Cell countson 09-07-2021 HbA1c (Bld) [Mass fraction] 7.7 % [facility] Work Phone: Laboratory - Chemistry and C hemistry - challengeon 06-22-2021 Cobalamin (Vitamin B12) [Mass/Vol] 717 pg/mL 211-911 [facility] Work Phone: Office Visit: abdominal pain on 05-09-2017 Documentation of current medications (procedure) Done Invalid Interpretation Code [facility] [employer] Work Phone: Fall risk assessment No Invalid Interpretation Code [facility] [employer] Work Phone: Tobacco smoking status NHIS Never Invalid Interpretation Code [facility] [employer] Work Phone: Tobacco use CPHS Former smoker Invalid Interpretation Code [facility] [employer] Work Phone: Lab Report: BNP,B-Type NATRI URETIC PEPTIDEon 01-20-2017 BNP 20.0 pg/mL Invalid Interpretation Code 0-100 [facility] [employer] Work Phone: Lab Report: Basic Metabolic Profile (BMP)on 01-20-2017 Anion gap 7 mmol/L Invalid Interpretation Code 5-15 [facility] [employer] Work Phone: BUN/Creatinine Ratio 14.6 RATIO Invalid Interpretation Code 10-20 [facility] [employer] Work Phone: Calcium 10.0 mg/dL Invalid Interpretation Code 8.5-10.1 [facility] [employer] Work Phone: Chloride 101 mmol/L Invalid Interpretation Code 98-107 [facility] [employer] Work Phone: CO2 30.0 mmol/L Invalid Interpretation Code 21.0-32.0 [facility] [employer] Work Phone: Creatinine 1.30 mg/dL Invalid Interpretation Code 0.70-1.30 [facility] [employer] Work Phone: eGFR (non-black) 68 mL/min/{1.73_m2} Invalid Interpretation Code >60 [facility] [employer] Work Phone: eGFR (non-black) 57 mL/min/{1.73_m2} Low >60 [facility] [employer] Work Phone: Glucose mass conc 110 mg/dL Invalid Interpretation Code 70-110 [facility] [employer] Work Phone: [phone] Potassium molar conc 4.5 mmol/L Invalid Interpretation Code 3.5-5.1 [facility] Work Phone: Sodium 138 mmol/L Invalid Interpretation Code 136-145 [facility] Work Phone: [phone] Urea nitrogen 19 mg/dL High 7-18 [facility] [employer] Work Phone: Lab Report: CBC W/Diff, Auto matedon 01-20-2017 Absolute Neut 3.3 X10 3/UL Invalid Interpretation Code 2.0-7.7 [facility] Work Phone: Basophils/100 WBC Auto (Bld) 1.0 % Invalid Interpretation Code 0-1 [facility] Work Phone: Eosinophils/100 leukocytes 5.6 % High 0-5 [facility] [employer] Work Phone: [phone] Erythrocyte distribution width Auto Ratio (RBC) 13.9 % Invalid Interpretation Code 11.6-14.6 [facility] Work Phone: Erythrocytes (RBC) 4.45 10*6/uL Low 4.6-6.2 [facility] Work Phone: Hematocrit (HCT) 42.4 % Invalid Interpretation Code 40-54 [facility] Work Phone: Hemoglobin mass conc (Bld) 14.0 g/dL Invalid Interpretation Code 13.0-16.5 [facility] [employer] Work Phone: Immature granulocytes/100 WBC (Bld) 0.700 % Invalid Interpretation Code 0.0-0.9 [facility] [employer] Work Phone: Lymphocytes 1.55 X10 3/UL Invalid Interpretation Code 0.83-4.51 [facility] [employer] Work Phone: Lymphocytes/100 leukocytes 27.1 % Invalid Interpretation Code 19-41 [facility] Work Phone: MCH 31.5 pg Invalid Interpretation Code 27.0-32.0 [facility] [employer] Work Phone: MCHC mass conc (RBC) 33.0 G/GL Invalid Interpretation Code 32-36 [facility] [employer] Work Phone: MCV 95.3 fL High 80-94 [facility] [employer] Work Phone: Monocytes/100 leukocytes 7.5 % Invalid Interpretation Code 0-10 [facility] [employer] Work Phone: Neutrophils/100 WBC Auto (Bld) 58.1 % Invalid Interpretation Code 47-70 [facility] [employer] Work Phone: Platelets 185 10*3/mm3 Invalid Interpretation Code 150-450 [facility] [employer] Work Phone: PMV by Ismael 9.8 fL Invalid Interpretation Code 6.2-12.0 [facility] [employer] Work Phone: RDW SD 48.2 fL High 35.1-43.9 [facility] [employer] Work Phone: WBC (Leukocytes) 5.7 10*3/uL Invalid Interpretation Code 4.4-11.0 [facility] [employer] Work Phone: 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 Left ventricular Ejection fraction 55 % Invalid Interpretation Code [facility] [employer] Work Phone: Lab Report: Ferritinon 03-21 Ferritin 7 ng/mL Low 26-388 [facility] [employer] Work Phone: Lab Report: Iron+Iron Bindin g Capacityon 03-21-2016 Iron 24 ug/dL Low 65-175 [facility] [employer] Work Phone: iron binding capacity, total 512 ug/dL High 250-450 [facility] [employer] Work Phone: iron saturation percent, serum 4.7 % Low 15.0-55.0 [facility] [employer] Work Phone: Lab Report: Retic Panelon RET-HE 22.4 pg Low 30-35 [facility] [employer] Work Phone: Reticulocytes/100 erythrocytes 1.25 % Invalid Interpretation Code 0.5-1.5 [facility] [employer] Work Phone: Replaced Document: Miguelito Huertaon 03-08-2016 BUN (urea nitrogen) Sinus Rhythm -Right bundle branch block. ABNORMAL Invalid Interpretation Code [facility] [employer] Work Phone: EKG QRS axis -12 deg Invalid Interpretation Code [facility] [employer] Work Phone: P [place] 40 deg Invalid Interpretation Code [facility] [employer] Work Phone: OR Interval 138 ms Invalid Interpretation Code [facility] [employer] Work Phone: Pulse (Heart Rate) 76 /min Invalid Interpretation Code [facility] [employer] Work Phone: QRS Duration 136 ms Invalid Interpretation Code [facility] [employer] Work Phone: QT Interval new path ms Invalid Interpretation Code [facility] [employer] Work Phone: T [place] -1 deg Invalid Interpretation Code [facility] [employer] Work Phone: Lab Report: Lipid Profileon 10-19-2015 Cholesterol 140 mg/dL Invalid Interpretation Code 200 [facility] [employer] Work Phone: HDL Cholesterol 35 mg/dL Low [facility] jeanette [employer] Work Phone: LDL Cholesterol 72 mg/dL Invalid Interpretation Code 0-130 [facility] [employer] Work Phone: Triglyceride 163 mg/dL Invalid Interpretation Code [facility] [employer] Work Phone: very low density lipoproteins 33 mg/dL Invalid Interpretation Code 5-40 [facility] [employer] Work Phone: Lab Report: Liver Profileon 10-19-2015 Alanine aminotransferase (ALT) 38 U/L Invalid Interpretation Code 12-78 [facility] [employer] Work Phone: Albumin 3.9 g/dL Invalid Interpretation Code 3.4-5.0 [facility] [employer] Work Phone: Alkaline phosphatase (ALP) 37 U/L Low 50-136 [facility] [employer] Work Phone: Aspartate aminotransferase (AST) 30 U/L Invalid Interpretation Code 15-37 [facility] [employer] Work Phone: Bilirubin (direct) 0.14 mg/dL Invalid Interpretation Code 0.00-0.30 [facility] [employer] Work Phone: Bilirubin (total) 0.60 mg/dL Invalid Interpretation Code 0.20-1.00 [facility] [employer] Work Phone: Globulin 3.1 g/dL Invalid Interpretation Code 2.3-3.5 [facility] [employer] Work Phone: Protein 7.0 g/dL Invalid Interpretation Code 6.4-8.2 [facility] [employer] Work Phone: Office Visit: [facility] 08-27-19 16 Fall risk assessment Invalid Interpretation Code [facility] [employer] Work Phone: Office Visiton 05-29-2014 cardiac risk group C Invalid Interpretation Code [facility] [employer] Work Phone: General cardiovascular disease 10Y risk [#] [place]D'[place]ost[place] N/A Invalid Interpretation Code [facility] [employer] Work Phone: Smoking cessation education (procedure) yes Invalid Interpretation Code [facility] [employer] Work Phone: Vital Signs Date Time Vital Sign Value Performing [facility] 09-14-2023 15:11-0400 Body height 162.[address] Keron Maciel Work Phone: [facility] 09-14-2023 15:11-0400 Body mass index (BMI) [Ratio] 38.7 kg/m2 Dr. Keron Maciel Work Phone: [facility] 09-14-2023 15:11-0400 Body temperature 97.3 [degF] Dr. Keron Maciel Work Phone: [facility] 09-14-2023 15:11-0400 Body weight 102.[address] Keron Maciel Work Phone: [facility] 09-14-2023 15:11-0400 Diastolic blood pressure 91 mm[Hg] Dr. Keron Maciel Work Phone: [facility] 09-14-2023 15:11-0400 Heart rate 87 /min Dr. Keron Maciel Work Phone: [facility] 09-14-2023 15:11-0400 Respiratory rate 17 /min Dr. Keron Maciel Work Phone: [facility] 09-14-2023 15:11-0400 SaO2% (BldA) [Mass fraction] 97 % Dr. Keron Maciel Work Phone: [facility] 09-14-2023 15:11-0400 Systolic blood pressure 167 mm[Hg] Dr. Keron Maciel Work Phone: [facility] 08-10-2023 15:48-0500 Body mass index (BMI) [Ratio] 39.4 kg/m2 Dr. Keron Maciel Work Phone: [facility] 08-10-2023 15:48-0500 Body temperature 97.7 [degF] Dr. Keron Maciel Work Phone: [facility] 08-10-2023 15:48-0500 Body weight 104.[address] Keron Maciel Work Phone: [facility] 08-10-2023 15:48-0500 Diastolic blood pressure 84 mm[Hg] Dr. Keron Maciel Work Phone: [facility] 08-10-2023 15:48-0500 Heart rate 78 /min Dr. Keron Maciel Work Phone: [facility] 08-10-2023 15:48-0500 Respiratory rate 14 /min Dr. Keron Maciel Work Phone: [facility] 08-10-2023 15:48-0500 SaO2% (BldA) [Mass fraction] 94 % Dr. Keron Maciel Work Phone: [facility] 08-10-2023 15:48-0500 Systolic blood pressure 128 mm[Hg] Dr. Keron Maciel Work Phone: [facility] 07-27-2023 14:30-0500 Body temperature 97.7 [degF] Dr. Keron Maciel Work Phone: [facility] 07-27-2023 14:30-0500 Body weight 104.[address] Keron Maciel Work Phone: [facility] 07-27-2023 14:30-0500 Diastolic blood pressure 67 mm[Hg] Dr. Keron Maciel Work Phone: [facility] 07-27-2023 14:30-0500 Heart rate 90 /min Dr. Keron Maciel Work Phone: [facility] 07-27-2023 14:30-0500 Respiratory rate 17 /min Dr. Keron Maciel Work Phone: [facility] 07-27-2023 14:30-0500 SaO2% (BldA) [Mass fraction] 97 % Dr. Keron Maciel Work Phone: [facility] 07-27-2023 14:30-0500 Systolic blood pressure 122 mm[Hg] Dr. Keron Maciel Work Phone: [facility] 07-24-2023 14:04-0500 Body mass index (BMI) [Ratio] 39.4 kg/m2 Dr. Keron Maciel Work Phone: [facility] 07-24-2023 14:04-0500 Body temperature 98.7 [degF] Dr. Keron Maciel Work Phone: [facility] 07-24-2023 14:04-0500 Body weight 104.[address] Keron Maciel Work Phone: [facility] 07-24-2023 14:04-0500 Diastolic blood pressure 90 mm[Hg] Dr. Keron Maciel Work Phone: [facility] 07-24-2023 14:04-0500 Heart rate 80 /min Dr. Keron Maciel Work Phone: [facility] 07-24-2023 14:04-0500 Respiratory rate 19 /min Dr. Keron Maciel Work Phone: [facility] 07-24-2023 14:04-0500 SaO2% (BldA) [Mass fraction] 96 % Dr. Keron Maciel Work Phone: [facility] 07-24-2023 14:04-0500 Systolic blood pressure 136 mm[Hg] Dr. Keron Maciel Work Phone: [facility] 07-16-2023 19:32-0500 Body temperature 98.1 [degF] Dr. Keron Maciel Work Phone: [facility] 07-16-2023 19:32-0500 Diastolic blood pressure 84 mm[Hg] Dr. Keron Maciel Work Phone: [facility] 07-16-2023 19:32-0500 Heart rate 82 /min Dr. Keron Maciel Work Phone: [facility] 07-16-2023 19:32-0500 Respiratory rate 16 /min Dr. Keron Maciel Work Phone: [facility] 07-16-2023 19:32-0500 SaO2% (BldA) [Mass fraction] 95 % Dr. Keron Maciel Work Phone: [facility] 07-16-2023 19:32-0500 Systolic blood pressure 146 mm[Hg] Dr. Keron Maciel Work Phone: [facility] 07-16-2023 14:57-0500 Body mass index (BMI) [Ratio] 40.2 kg/m2 Dr. Keron Maciel Work Phone: [facility] 07-16-2023 14:57-0500 Body weight 106.[address] Keron Maciel Work Phone: [facility] 10-18-2022 13:46-0400 Body height 162.[address] Keron Maciel Work Phone: [facility] 10-18-2022 13:46-0400 Body mass index (BMI) [Ratio] 40.5 kg/m2 Dr. Keron Maciel Work Phone: [facility] 10-18-2022 13:46-0400 Body temperature 93 [degF] Dr. Keron Maciel Work Phone: [facility] 10-18-2022 13:46-0400 Body weight 107.[address] Keron Maciel Work Phone: [facility] 10-18-2022 13:46-0400 Diastolic blood pressure 84 mm[Hg] Dr. Keron Maciel Work Phone: [facility] 10-18-2022 13:46-0400 Heart rate 84 /min Dr. Keron Maciel Work Phone: [facility] 10-18-2022 13:46-0400 Respiratory rate 18 /min Dr. Keron Maciel Work Phone: [facility] 10-18-2022 13:46-0400 SaO2% (BldA) [Mass fraction] 94 % Dr. Keron Maciel Work Phone: [facility] 10-18-2022 13:46-0400 Systolic blood pressure 146 mm[Hg] Dr. Keron Maciel Work Phone: [facility] 10-10-2022 20:09-0400 Diastolic blood pressure 70 mm[Hg] Dr. Keron Maciel Work Phone: [facility] 10-10-2022 20:09-0400 Heart rate 86 /min Dr. Keron Maciel Work Phone: [facility] 10-10-2022 20:09-0400 Systolic blood pressure 115 mm[Hg] Dr. Keron Maciel Work Phone: [facility] 10-10-2022 13:01-0400 Body mass index (BMI) [Ratio] 41 kg/m2 Dr. Keron Maciel Work Phone: [facility] 10-10-2022 13:01-0400 Body temperature 98 [degF] Dr. Keron Maciel Work Phone: [facility] 10-10-2022 13:01-0400 Body weight 108.[address] Keron Maciel Work Phone: [facility] 10-10-2022 13:01-0400 Respiratory rate 17 /min Dr. Keron Maciel Work Phone: [facility] 10-10-2022 13:01-0400 SaO2% (BldA) [Mass fraction] 98 % Dr. Keron Maciel Work Phone: [facility] 09-28-2022 14:32-0400 Body temperature 98.8 [degF] Dr. Keron Maciel Work Phone: [facility] 09-28-2022 14:32-0400 Body weight 109.[address] Keron Maciel Work Phone: [facility] 09-28-2022 14:32-0400 Diastolic blood pressure 80 mm[Hg] Dr. Keron Maciel Work Phone: [facility] 09-28-2022 14:32-0400 Heart rate 76 /min Dr. Keron Maciel Work Phone: [facility] 09-28-2022 14:32-0400 Respiratory rate 20 /min Dr. Keron Maciel Work Phone: [facility] 09-28-2022 14:32-0400 SaO2% (BldA) [Mass fraction] 95 % Dr. Keron Maciel Work Phone: [facility] 09-28-2022 14:32-0400 Systolic blood pressure 142 mm[Hg] Dr. Keron Maciel Work Phone: [facility] 09-08-2022 14:03-0400 Body height 162.[address] Keron Maciel Work Phone: [facility] 09-08-2022 14:02-0400 Body mass index (BMI) [Ratio] 41.3 kg/m2 Dr. Keron Maciel Work Phone: [facility] 09-08-2022 14:02-0400 Body weight 109.[address] Keron Maciel Work Phone: [facility] 09-08-2022 14:02-0400 Diastolic blood pressure 71 mm[Hg] Dr. Keron Maciel Work Phone: [facility] 09-08-2022 14:02-0400 Heart rate 76 /min Dr. Keron Maciel Work Phone: [facility] 09-08-2022 14:02-0400 Respiratory rate 22 /min Dr. Keron Maciel Work Phone: [facility] 09-08-2022 14:02-0400 SaO2% (BldA) [Mass fraction] 97 % Dr. Keron Maciel Work Phone: [facility] 09-08-2022 14:02-0400 Systolic blood pressure 118 mm[Hg] Dr. Keron Maciel Work Phone: [facility] 08-03-2022 07:45-0500 Body mass index (BMI) [Ratio] 40.6 kg/m2 Dr. Keron Maciel Work Phone: [facility] 08-03-2022 07:45-0500 Body temperature 97 [degF] Dr. Keron Maciel Work Phone: [facility] 08-03-2022 07:45-0500 Body weight 107.[address] Keron Maciel Work Phone: [facility] 08-03-2022 07:45-0500 Diastolic blood pressure 83 mm[Hg] Dr. Keron Maciel Work Phone: [facility] 08-03-2022 07:45-0500 Heart rate 86 /min Dr. Keron Maciel Work Phone: [facility] 08-03-2022 07:45-0500 Respiratory rate 20 /min Dr. Keron Maciel Work Phone: [facility] 08-03-2022 07:45-0500 SaO2% (BldA) [Mass fraction] 94 % Dr. Keron Maciel Work Phone: [facility] 08-03-2022 07:45-0500 Systolic blood pressure 154 mm[Hg] Dr. Keron Maciel Work Phone: [facility] 02-25-2022 09:02-0400 Body height 162.[address] Keron Maciel Work Phone: [facility] Work Phone: 02-25-2022 09:02-0400 Body mass index (BMI) [Ratio] 41 kg/m2 Dr. Keron Maciel Work Phone: [facility] Work Phone: 02-25-2022 09:02-0400 Body weight 108.[address] Keron Maciel Work Phone: [facility] Work Phone: 02-25-2022 09:02-0400 Diastolic blood pressure 79 mm[Hg] Dr. Keron Maciel Work Phone: [facility] Work Phone: 02-25-2022 09:02-0400 Heart rate 78 /min Dr. Keron Maciel Work Phone: [facility] Work Phone: 02-25-2022 09:02-0400 Respiratory rate 18 /min Dr. Keron Maciel Work Phone: [facility] Work Phone: 02-25-2022 09:02-0400 SaO2% (BldA) [Mass fraction] 98 % Dr. Keron Maciel Work Phone: [facility] Work Phone: 02-25-2022 09:02-0400 Systolic blood pressure 137 mm[Hg] Dr. Keron Maciel Work Phone: [facility] Work Phone: 02-14-2022 13:10-0400 Body height 162.[address] Keron Maciel Work Phone: [facility] Work Phone: 02-14-2022 13:10-0400 Body mass index (BMI) [Ratio] 41.1 kg/m2 Dr. Keron Maciel Work Phone: [facility] Work Phone: 02-14-2022 13:10-0400 Body temperature 98.2 [degF] Dr. Keron Maciel Work Phone: [facility] Work Phone: 02-14-2022 13:10-0400 Body weight 108.[address] Keron Maciel Work Phone: [facility] Work Phone: 02-14-2022 13:10-0400 Diastolic blood pressure 76 mm[Hg] Dr. Keron Maciel Work Phone: [facility] Work Phone: 02-14-2022 13:10-0400 Heart rate 75 /min Dr. Keron Maciel Work Phone: [facility] Work Phone: 02-14-2022 13:10-0400 Respiratory rate 22 /min Dr. Keron Maciel Work Phone: [facility] Work Phone: 02-14-2022 13:10-0400 SaO2% (BldA) [Mass fraction] 98 % Dr. Keron Maciel Work Phone: [facility] Work Phone: 02-14-2022 13:10-0400 Systolic blood pressure 126 mm[Hg] Dr. Keron Maciel Work Phone: [facility] Work Phone: 02-08-2022 13:22-0400 Body temperature 98.2 [degF] Dr. Keron Maciel Work Phone: [facility] Work Phone: 02-08-2022 13:22-0400 Diastolic blood pressure 54 mm[Hg] Dr. Keron Maciel Work Phone: [facility] Work Phone: 02-08-2022 13:22-0400 Heart rate 86 /min Dr. Keron Maciel Work Phone: [facility] Work Phone: 02-08-2022 13:22-0400 Respiratory rate 14 /min Dr. Keron Maciel Work Phone: [facility] Work Phone: 02-08-2022 13:22-0400 SaO2% (BldA) [Mass fraction] 95 % Dr. Keron Maciel Work Phone: [facility] Work Phone: 02-08-2022 13:22-0400 Systolic blood pressure 108 mm[Hg] Dr. Keron Maciel Work Phone: [facility] Work Phone: 02-01-2022 16:28-0400 Diastolic blood pressure 78 mm[Hg] Dr. Keron Maciel Work Phone: [facility] Work Phone: 02-01-2022 16:28-0400 Heart rate 78 /min Dr. Keron Maciel Work Phone: [facility] Work Phone: 02-01-2022 16:28-0400 Respiratory rate 16 /min Dr. Keron Maciel Work Phone: [facility] Work Phone: 02-01-2022 16:28-0400 SaO2% (BldA) [Mass fraction] 98 % Dr. Keron Maciel Work Phone: [facility] Work Phone: 02-01-2022 16:28-0400 Systolic blood pressure 136 mm[Hg] Dr. Keron Maciel Work Phone: [facility] Work Phone: 02-01-2022 13:24-0400 Body height 162.[address] Keron Maciel Work Phone: [facility] Work Phone: 02-01-2022 13:24-0400 Body mass index (BMI) [Ratio] 40.8 kg/m2 Dr. Keron Maciel Work Phone: [facility] Work Phone: 02-01-2022 13:24-0400 Body temperature 97.8 [degF] Dr. Keron Maciel Work Phone: [facility] Work Phone: 02-01-2022 13:24-0400 Body weight 107.[address] Keron Maciel Work Phone: [facility] Work Phone: 10-29-2021 07:13-0400 Body height 162.[address] Keron Maciel Work Phone: [facility] Work Phone: 10-29-2021 07:13-0400 Body weight 108.[address] Keron Maciel Work Phone: [facility] Work Phone: 10-28-2021 08:17-0400 Body mass index (BMI) [Ratio] 41.1 kg/m2 Dr. Keron Maciel Work Phone: [facility] Work Phone: 10-26-2021 08:19-0400 Body weight 108.[address] Keron Maciel Work Phone: [facility] Work Phone: 10-26-2021 08:19-0400 Diastolic blood pressure 72 mm[Hg] Dr. Keron Maciel Work Phone: [facility] Work Phone: 10-26-2021 08:19-0400 Heart rate 77 /min Dr. Keron Maciel Work Phone: [facility] Work Phone: 10-26-2021 08:19-0400 Respiratory rate 22 /min Dr. Keron Maciel Work Phone: [facility] Work Phone: 10-26-2021 08:19-0400 SaO2% (BldA) [Mass fraction] 96 % Dr. Keron Maciel Work Phone: [facility] Work Phone: 10-26-2021 08:19-0400 Systolic blood pressure 108 mm[Hg] Dr. Keron Maciel Work Phone: [facility] Work Phone: 10-26-2021 08:19-0400 Body weight 108.[address] Keron Maciel Work Phone: [facility] Work Phone: 10-26-2021 08:19-0400 Diastolic blood pressure 72 mm[Hg] Dr. Keron Maciel Work Phone: [facility] Work Phone: 10-26-2021 08:19-0400 Heart rate 77 /min Dr. Keron Maciel Work Phone: [facility] Work Phone: 10-26-2021 08:19-0400 Respiratory rate 22 /min Dr. Keron Maciel Work Phone: [facility] Work Phone: 10-26-2021 08:19-0400 SaO2% (BldA) [Mass fraction] 96 % Dr. Keron Maciel Work Phone: [facility] Work Phone: 10-26-2021 08:19-0400 Systolic blood pressure 108 mm[Hg] Dr. Keron Maciel Work Phone: [facility] Work Phone: 10-13-2021 13:03-0400 Body mass index (BMI) [Ratio] 40.8 kg/m2 Dr. Keron Maciel Work Phone: [facility] Work Phone: 10-13-2021 13:03-0400 Body temperature 96.9 [degF] Dr. Keron Maciel Work Phone: [facility] Work Phone: 10-13-2021 13:03-0400 Body weight 108.[address] Keron Maciel Work Phone: [facility] Work Phone: 10-13-2021 13:03-0400 Diastolic blood pressure 70 mm[Hg] Dr. Keron Maciel Work Phone: [facility] Work Phone: 10-13-2021 13:03-0400 Heart rate 95 /min Dr. Keron Maciel Work Phone: [facility] Work Phone: 10-13-2021 13:03-0400 Respiratory rate 16 /min Dr. Keron Maciel Work Phone: [facility] Work Phone: 10-13-2021 13:03-0400 SaO2% (BldA) [Mass fraction] 95 % Dr. Keron Maciel Work Phone: [facility] Work Phone: 10-13-2021 13:03-0400 Systolic blood pressure 130 mm[Hg] Dr. Keron Maciel Work Phone: [facility] Work Phone: 10-13-2021 13:03-0400 Body height 162.[address] Keron Maciel Work Phone: [facility] Work Phone: 10-13-2021 13:03-0400 Body mass index (BMI) [Ratio] 40.8 kg/m2 Dr. Keron Maciel Work Phone: [facility] Work Phone: 10-13-2021 13:03-0400 Body temperature 96.9 [degF] Dr. Keron Maciel Work Phone: [facility] Work Phone: 10-13-2021 13:03-0400 Body weight 108.[address] Keron Maciel Work Phone: [facility] Work Phone: 10-13-2021 13:03-0400 Diastolic blood pressure 70 mm[Hg] Dr. Keron Maciel Work Phone: [facility] Work Phone: 10-13-2021 13:03-0400 Heart rate 95 /min Dr. Keron Maciel Work Phone: [facility] Work Phone: 10-13-2021 13:03-0400 Respiratory rate 16 /min Dr. Keron Maciel Work Phone: [facility] Work Phone: 10-13-2021 13:03-0400 SaO2% (BldA) [Mass fraction] 95 % Dr. Keron Maciel Work Phone: [facility] Work Phone: 10-13-2021 13:03-0400 Systolic blood pressure 130 mm[Hg] Dr. Keron Maciel Work Phone: [facility] Work Phone: 10-11-2021 13:12-0400 Body mass index (BMI) [Ratio] 40.8 kg/m2 Dr. Keron Maciel Work Phone: [facility] Work Phone: 10-11-2021 13:12-0400 Body weight 108.[address] Keron Maciel Work Phone: [facility] Work Phone: 10-11-2021 13:12-0400 Diastolic blood pressure 68 mm[Hg] Dr. Keron Maciel Work Phone: [facility] Work Phone: 10-11-2021 13:12-0400 Heart rate 80 /min Dr. Keron Maciel Work Phone: [facility] Work Phone: 10-11-2021 13:12-0400 Respiratory rate 17 /min Dr. Keron Maciel Work Phone: [facility] Work Phone: 10-11-2021 13:12-0400 SaO2% (BldA) [Mass fraction] 96 % Dr. Keron Maciel Work Phone: [facility] Work Phone: 10-11-2021 13:12-0400 Systolic blood pressure 114 mm[Hg] Dr. Keron Maciel Work Phone: [facility] Work Phone: 10-11-2021 13:12-0400 Body mass index (BMI) [Ratio] 40.8 kg/m2 Dr. Keron Maciel Work Phone: [facility] Work Phone: 10-11-2021 13:12-0400 Body weight 108.[address] Keron Maciel Work Phone: [facility] Work Phone: 10-11-2021 13:12-0400 Diastolic blood pressure 68 mm[Hg] Dr. Keron Maciel Work Phone: [facility] Work Phone: 10-11-2021 13:12-0400 Heart rate 80 /min Dr. Keron Maciel Work Phone: [facility] Work Phone: 10-11-2021 13:12-0400 Respiratory rate 17 /min Dr. Keron Maciel Work Phone: [facility] Work Phone: 10-11-2021 13:12-0400 SaO2% (BldA) [Mass fraction] 96 % Dr. Keron Maciel Work Phone: [facility] Work Phone: 10-11-2021 13:12-0400 Systolic blood pressure 114 mm[Hg] Dr. Keron Maciel Work Phone: [facility] Work Phone: 09-07-2021 13:29-0400 Body mass index (BMI) [Ratio] 40.6 kg/m2 Dr. Keron Maciel Work Phone: [facility] Work Phone: 09-07-2021 13:29-0400 Body temperature 96.3 [degF] Dr. Keron Maciel Work Phone: [facility] Work Phone: 09-07-2021 13:29-0400 Body weight 107.[address] Keron Maciel Work Phone: [facility] Work Phone: 09-07-2021 13:29-0400 Diastolic blood pressure 80 mm[Hg] Dr. Keron Maciel Work Phone: [facility] Work Phone: 09-07-2021 13:29-0400 Heart rate 87 /min Dr. Keron Maciel Work Phone: [facility] Work Phone: 09-07-2021 13:29-0400 Respiratory rate 20 /min Dr. Keron Maciel Work Phone: [facility] Work Phone: 09-07-2021 13:29-0400 SaO2% (BldA) [Mass fraction] 97 % Dr. Keron Maciel Work Phone: [facility] Work Phone: 09-07-2021 13:29-0400 Systolic blood pressure 140 mm[Hg] Dr. Keron Maciel Work Phone: [facility] Work Phone: 08-05-2021 05:23-0500 Body temperature 97.2 [degF] Dr. Keron Maciel Work Phone: [facility] Work Phone: 08-05-2021 05:23-0500 Body weight 106.[address] Keron Maciel Work Phone: [facility] Work Phone: 08-05-2021 05:23-0500 Diastolic blood pressure 81 mm[Hg] Dr. Keron Maciel Work Phone: [facility] Work Phone: 08-05-2021 05:23-0500 Heart rate 86 /min Dr. Keron Maciel Work Phone: [facility] Work Phone: 08-05-2021 05:23-0500 Respiratory rate 18 /min Dr. Keron Maciel Work Phone: [facility] Work Phone: 08-05-2021 05:23-0500 SaO2% (BldA) [Mass fraction] 97 % Dr. Keron Maciel Work Phone: [facility] Work Phone: 08-05-2021 05:23-0500 Systolic blood pressure 145 mm[Hg] Dr. Keron Maciel Work Phone: [facility] Work Phone: 07-13-2021 09:20-0500 Diastolic blood pressure 68 mm[Hg] Dr. Keron Maciel Work Phone: [facility] Work Phone: 07-13-2021 09:20-0500 Heart rate 87 /min Dr. Keron Maciel Work Phone: [facility] Work Phone: 07-13-2021 09:20-0500 SaO2% (BldA) [Mass fraction] 98 % Dr. Keron Maciel Work Phone: [facility] Work Phone: 07-13-2021 09:20-0500 Systolic blood pressure 120 mm[Hg] Dr. Keron Maciel Work Phone: [facility] Work Phone: 01-18-2021 13:35-0400 Body mass index (BMI) [Ratio] 40.6 kg/m2 Dr. Keron Maciel Work Phone: [facility] Work Phone: 01-18-2021 13:35-0400 Body mass index (BMI) [Ratio] 40.6 kg/m2 Dr. Keron Maciel Work Phone: [facility] Work Phone: 07-22-2020 09:45-0500 Body mass index (BMI) [Ratio] 40.8 kg/m2 Dr. Keron Maciel Work Phone: [facility] Work Phone: 05-09-2017 08:43-0500 BMI (Body Mass Index) 41.78 kg/m2 Saurabh Benites MD [facility] Work Phone: 05-09-2017 08:43-0500 Body Temperature 97.8 [degF] Saurabh Benites MD [facility] Work Phone: 05-09-2017 08:43-0500 BP Diastolic 83 mm[Hg] Saurabh Benites MD [facility] Work Phone: 05-09-2017 08:43-0500 BP Systolic 148 mm[Hg] Saurabh Benites MD [facility] Work Phone: 05-09-2017 08:43-0500 Height 160.02 cm Saurabh Benites MD [facility] Work Phone: 05-09-2017 08:43-0500 Pulse (Heart Rate) 74 /min Saurabh Benites MD [facility] Work Phone: 05-09-2017 08:43-0500 Respiratory Rate 20 /min Saurabh Benites MD [facility] Work Phone: 05-09-2017 08:43-0500 Weight 107 kg Saurabh Benites MD [facility] Work Phone: 05-31-2016 10:22-0500 Body Temperature 97.34 [degF] Saurabh Benites MD [facility] Work Phone: 05-31-2016 10:22-0500 BSA (Body Surface Area) 2.06 m2 Saurabh Benites MD [facility] Work Phone: 05-31-2016 10:22-0500 Height 160.02 cm Saurabh Benites MD [facility] Work Phone: 05-31-2016 10:22-0500 Weight 105.45 kg Saurabh Benites MD [facility] Work Phone: 03-08-2016 14:31-0400 Pulse Oximetry 97 % Saurabh Benites MD [facility] Work Phone: Encounters Encounter Date Encounter Type Care Provider Facility Start: 09-06-2024 End: 09-06-2024 ambulatory BARBIE NOVA Facility:[facility] Start: 09-06-2024 End: 09-06-2024 Patient encounter procedure Barbie Nguyense Work Phone: Podiatry Comment on above: Onychomycosis (Prima ry Dx); Pain in toe of left foot; Pain in toe of right foot; Diabetic polyneuropathy associated with type 2 diabetes mellitus (HCC); Venous insufficiency Start: 08-01-2024 End: 08-01-2024 ambulatory Rich Padgett Facility:[facility] Start: 07-25-2024 End: 07-25-2024 ambulatory Keron Maciel Facility:[facility] Start: 06-24-2024 End: 06-24-2024 ambulatory Keron Maciel Facility:[facility] Start: 06-24-2024 End: 06-24-2024 ambulatory Joan Serna Facility:[facility] Start: 06-15-2024 ambulatory Keron Maciel Facility :[facility] Start: 06-15-2024 End: 06-16-2024 ambulatory Amalia Moncada Facility:[facility] Start: 06-06-2024 End: 06-06-2024 ambulatory SELF Facility:[facility] Start: 06-06-2024 End: 06-06-2024 Patient encounter procedure Barbie Nguyenkenyetta Work Phone: Podiatry Comment on above: Onychomycosis (Prima ry Dx); Pain in toe of left foot; Pain in toe of right foot; Diabetic polyneuropathy associated with type 2 diabetes mellitus (HCC) Start: 05-20-2024 End: 05-20-2024 ambulatory Keron Maciel Facility:[facility] Start: 05-09-2024 End: 05-09-2024 ambulatory Keronrichard Maciel Facility:[facility] Start: 04-22-2024 End: 04-22-2024 ambulatory Keron Maciel Facility:[facility] Start: 03-28-2024 End: 03-28-2024 ambulatory Keron Maciel Facility:[facility] Start: 03-27-2024 End: 03-27-2024 ambulatory Keron Maciel Facility:[facility] Start: 03-14-2024 End: 03-14-2024 ambulatory Keron Maciel Facility:[facility] Start: 03-07-2024 End: 03-07-2024 ambulatory Keron Maciel [facility] Start: 02-29-2024 End: 02-29-2024 ambulatory BARBIE NOVA Facility:[facility] Start: 02-29-2024 End: 02-29-2024 Patient encounter procedure Barbie Nova Work Phone: Podiatry Comment on above: Onychomycosis (Prima ry Dx); Pain in toe of left foot; Pain in toe of right foot; Diabetic polyneuropathy associated with type 2 diabetes mellitus (HCC) Start: 02-26-2024 End: 02-26-2024 ambulatory Keron Maciel Facility:[facility] Start: 01-18-2024 End: 01-18-2024 ambulatory Keron Maciel Facility:[facility] Start: 01-10-2024 End: 01-10-2024 ambulatory Keron Maciel Facility:[facility] Start: 01-04-2024 End: 01-05-2024 ambulatory [facility] Janell Facility:[facility] Start: 12-28-2023 End: 12-28-2023 ambulatory Keron Maciel [facility] Start: 12-19-2023 End: 12-19-2023 Emergency department patient visit Keron Maciel Facility:[facility] Start: 11-22-2023 End: 11-22-2023 ambulatory Keron Maciel Facility:[facility] Start: 11-20-2023 End: 11-20-2023 ambulatory Keron Maciel Facility:[facility] Start: 11-16-2023 End: 11-16-2023 ambulatory BARBIE NOVA Facility:[facility] Start: 11-16-2023 End: 11-16-2023 Patient encounter procedure Barbie Nova Work Phone: Podiatry Comment on above: Onychomycosis (Prima ry Dx); Pain in toe of left foot; Pain in toe of right foot; Diabetic polyneuropathy associated with type 2 diabetes mellitus (HCC) Start: 11-12-2023 End: 11-12-2023 Emergency department patient visit Keron Maciel Facility:[facility] Start: 09-22-2023 End: 09-22-[address] Keron Maciel Work Phone: [facility] Work Phone: Start: 09-22-2023 End: 09-22-[address] Keron Maciel Work Phone: [facility]-Laboratory Work Phone: Start: 09-22-2023 End: 09-22-2023 ambulatory Keron Maciel Facility:[facility] Start: 09-14-2023 End: 09-14-[address] Keron Maciel Work Phone: [facility] Work Phone: Start: 09-14-2023 End: 09-14-2023 ambulatory Keron Maciel [facility] Start: 08-10-2023 End: 08-10-[address] 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 Keron Maciel Work Phone: [facility] Neurology Work Phone: Start: 07-24-2023 End: 07-24-[address] Keron Maciel Work Phone: [facility] [place] Work Phone: Start: 07-16-2023 End: 07-16-2023 Emergency department patient visit Dr. Keron Maciel Work Phone: [facility]-Emergency Department Work Phone: Start: 12-09-2022 End: 12-09-[address] Keron Maciel Work Phone: [facility] Work Phone: Start: 12-09-2022 End: 12-09-[address] Keron Maciel Work Phone: [facility]-Physical Therapy Start: 10-18-2022 End: 10-18-[address] Keron Maciel Work Phone: [facility] Endocrinology Start: 10-10-2022 End: 10-10-[address] Keron Maciel Work Phone: [facility] Neurology Start: 10-05-2022 End: 10-05-[address] Keron Maciel Work Phone: [facility]-Radiology, [facility] Start: 09-28-2022 End: 09-28-[address] Keron Maciel Work Phone: [facility] Work Phone: Start: 09-28-2022 End: 09-28-[address] Keron Maciel Work Phone: [facility]-Laboratory Start: 09-28-2022 End: 09-28-[address] Keron Maciel Work Phone: [facility] [place] Start: 09-08-2022 End: 09-08-[address] Keron Maciel Work Phone: [facility] Start: 09-07-2022 End: 09-07-[address] Keron Maciel Work Phone: [facility] Work Phone: Start: 09-07-2022 End: 09-07-[address] Keron Maciel Work Phone: [facility]-Radiology, [facility] Start: 08-03-2022 End: 08-03-[address] Keron Maciel Work Phone: [facility]-Pulmonary Medicine [facility] Start: 03-03-2022 End: 03-03-[address] Keron Maciel Work Phone: [facility] Work Phone: Start: 03-03-2022 End: 03-03-[address] Keron Maciel Work Phone: [facility]-Laboratory Start: 02-25-2022 End: 02-25-[address] Keron Maciel Work Phone: [facility] Start: 02-17-2022 Non-patient / Non-visit Dr. Madeleine Maciel Work Phone: [facility] Internal [facility] Start: 02-16-2022 End: 02-16-[address] Keron Maciel Work Phone: [facility] Work Phone: Start: 02-16-2022 End: 02-16-[address] [facility] Start: 02-14-2022 End: 02-14-[address] Keron Maciel Work Phone: [facility] Internal Medicine Start: 02-08-2022 End: 02-08-[address] Keron Maciel Work Phone: [facility] Internal Medicine Start: 02-01-2022 End: 02-01-2022 Emergency department patient visit Dr. Keron Maciel Work Phone: [facility]-Emergency Department Start: 10-29-2021 End: 10-29-2021 Admission to same day surgery center Dr. Keron Maciel Work Phone: [facility]-Acid Remover/Special Procedures Start: 10-26-2021 End: 10-26-[address] Keron Maciel Work Phone: [facility] Start: 10-13-2021 End: 10-13-[address] Keron Maciel Work Phone: [facility]-Laboratory, [facility] Start: 10-13-2021 End: 10-13-[address] Keron Maciel Work Phone: [facility] Internal Medicine Start: 10-11-2021 End: 10-11-[address] Keron Maciel Work Phone: [facility] Neurology Start: 09-07-2021 End: 09-07-[address] Keron Maciel Work Phone: [facility] Endocrinology Start: 08-05-2021 End: 08-05-[address] Keron Maciel Work Phone: [facility]-Pulmonary Medicine [facility] Start: 07-13-2021 End: 07-13-[address] Keron Maciel Work Phone: [facility] Neurology Start: 06-22-2021 End: 06-22-[address] Keron Maciel Work Phone: [facility]-Laboratory Procedures Date Procedure Procedure Detail Performing Clinician Start: 07-16-2023 Plain chest X-ray Dr. Keron Maciel Work Phone: Start: 07-16-2023 SARS-CoV-2, Influenza & RSV (PCR) Dr. Keron Maciel Work Phone: Start: 10-05-2022 X-ray of cervical spine Dr. Keron Li er Work Phone: Start: 09-07-2022 Plain X-ray of shoulder Dr. Keron Li er Work Phone: Start: 02-01-2022 CT of head without contrast Dr. Keron hdez Work Phone: Start: 10-26-2021 Plain chest X-ray Dr. Keron Maciel Work Phone: Start: 01-20-2017 End: 01-20-2017 *BMP Audelia Espinoza PA-C Work Phone: Start: 01-20-2017 End: 01-20-2017 *CBC with Differential Audelia huang PA-C Work Phone: Start: 01-20-2017 End: 01-20-2017 Follow Up Appt Other Audelia marley PA-C Work Phone: Start: 01-20-2017 End: 01-20-2017 Natriuretic peptide B [Mass/volume] in Blood Audelia Espinoza PA-C Work Phone: Start: 09-06-2016 End: 09-06-2016 NURSING CLERK Audelia Espinoza PA-C Work Phone: Start: 09-06-2016 End: 09-06-2016 Follow Up Appt 6 months Audelia weiner PA-C Work Phone: Start: 09-06-2016 End: 09-06-2016 Follow Up Appt Other Audelia marley PA-C Work Phone: Start: 08-22-2016 End: 09-07-2016 TRAVIS Sherman CNP Work Phone: Start: 08-22-2016 End: 09-07-2016 Echo tthrc r-t 2d w/wom-mode compl spec&colr d Lela Sherman [employer] Work Phone: Start: 08-22-2016 End: 09-07-2016 Follow Up Appt 3 months Lela fonseca [employer] Work Phone: Start: 08-22-2016 End: 08-23-2016 Natriuretic peptide B [Mass/volume] in Blood Lela Sherman [employer] Work Phone: Start: 06-08-2016 End: 08-18-2016 *MISC - Miscellaneous Lab Test #1 Lela Sherman [employer] Work Phone: Start: 05-20-2016 End: 05-20-2016 Follow [...] David Ashton MD Start: 03-08-2016 End: 03-08-2016 CAROLINE Ashton MD Start: 03-08-2016 End: 03-09-2016 Natriuretic peptide B [Mass/volume] in Blood David Ashton MD Start: 02-08-2016 End: 04-29-2016 DMB Americo Naazrio [employer] Work Phone: Start: 02-08-2016 End: 04-29-2016 Follow Up Appt 6 weeks Americo Nazario [employer] Work Phone: Start: 02-08-2016 End: 03-18-2016 Pulmonary Function Test - complete Americo Nazario [employer] Work Phone: Start: 10-15-2015 End: 10-19-2015 *Hepatic [...] David Ashton MD Start: 08-06-2015 End: 08-06-2015 MMM David Ashton MD Start: 08-06-2015 End: 08-06-2015 Natriuretic peptide B [Mass/volume] in Blood David Ashton MD Start: 07-16-2015 End: 08-27-2015 Cardiac Rehab Audelia Espinoza PA-C Work Phone: Start: 07-16-2015 End: 07-16-2015 Ecg routine ecg w/least 12 lds w/i&r Audelia Espinoza PA-C Work Phone: Start: 07-16-2015 End: 07-16-2015 Follow Up Appt 6 weeks Audelia huang PA-C Work Phone: Start: 07-16-2015 End: 07-16-2015 MM Audelia Espinoza PA-C Work Phone: Start: 07-01-2015 History of placement of stent for coronary artery disease History of coronary artery stent placement Dr. Keron Maciel Work Phone: Start: 06-16-2015 End: 06-16-2015 Ecg [...] CAROLINE Ashton MD Start: 12-31-2013 End: 12-31-2013 SIMI Espinoza PA-C Work Phone: Start: 12-31-2013 End: 12-31-2013 Follow Up Appt 6 months Audelia weiner PA-C Work Phone: Start: 06-25-2013 End: 06-25-2013 [...] Treatment Date Care Activity Detail Author Start: 11-11-2033 Urine microalbumin profile DTaP,Tdap,Td Vaccine (4 - Td or Tdap) [facility] Start: 02-02-2032 Urine microalbumin profile DTaP,Tdap,Td Vaccine (3 - Td or Tdap) [facility] Start: 12-06-2024 End: 12-06-2024 Patient encounter procedure 12/06/2024 3:40 PM EDT Office Visit Podiatry [address] [place] [address] Barbie Nova [address] [place] [address] 3 mo f/u Podiatry Comment on above: 3 mo f/u Start: 09-06-2024 End: 09-06-2024 Patient encounter procedure 09/06/2024 1:20 PM EDT Office Visit Podiatry [address] [place] [address] Barbie Nova [address] [address] 3 month follow up nail care Podiatry Comment on above: 3 month follow up nail care Start: 06-19-2024 Advance Directive Discussion Advance Directive Discussion [facility] Start: 02-23-2024 End: 02-23-2024 Patient encounter procedure 02/23/2024 2:00 PM EDT Office Visit Podiatry [address] [place] [address] Barbie Nova [address] [place] [address] 3 month follow up nail care Podiatry Comment on above: 3 month follow up nail care Start: 02-18-2024 Covid-19 Vaccine ( season) Covid-19 Vaccine () [facility] Start: 02-18-2024 Covid-19 Vaccine ( season) Covid-19 Vaccine ( season) [facility] Start: 02-18-2024 Influenza vaccination [facility] Start: 07-16-2023 [facility] Start: 07-16-2023 [facility] Start: 06-19-2023 Advance Directive Discussion Advance Directive Discussion [facility] Start: 06-19-2023 Behavioral Health Screening Behavioral Health Screening [facility] Start: 06-19-2023 Depression Assessment Depression Assessment [facility] Start: 02-17-2023 Covid-19 Vaccine ( season) Covid-19 Vaccine () [facility] Start: 02-17-2023 Influenza vaccination Influenza Vaccine (#1) [facility] Start: 10-10-2022 Patient referral [facility] Work Phone: Start: 02-01-2022 Simple repair f/e/e/n/l/m 2.6cm-5.0 cm RPR F/E/E/N/L/M 2.6-5.0 CM [facility] Work Phone: Start: 09-17-2021 Diabetic foot examination Diabetic Foot Exam [facility] Start: 09-14-2021 Hepatitis B surface antibody level LDL Cholesterol [facility] Start: 04-07-2021 Glaucoma screening Dilated Retinal Exam [facility] Start: 03-30-2021 Hemoglobin A1c measurement HbA1C [facility] Start: 01-19-2021 Hepatitis B screening Urine Albumin:Creatinine Ratio [facility] Start: 09-06-2017 End: 09-06-2017 Appointment Appointment [facility] [employer] Work Phone: Start: 05-22-2017 End: 05-22-2017 Appointment Appointment [facility] [employer] Work Phone: Start: 05-09-2017 End: 05-09-2017 Hepatobiliary imaging NM HIDA Scan with EF [facility] [employer] Work Phone: Start: 05-09-2017 End: 05-09-2017 Us abdominal real time w/image documentation US Abdomen, RUQ [facility] [employer] Work Phone: Start: 05-09-2017 End: 05-09-2017 Appointment Appointment [facility] [employer] Work Phone: Start: 03-09-2017 End: 03-09-2017 Follow Up Appt 6 months Follow Up Appt 6 months [facility] [employer] Work Phone: Start: 03-09-2017 End: 03-09-2017 MMM MMM [facility] [employer] Work Phone: Start: 01-20-2017 End: 01-20-2017 *BMP *BMP [facility] [employer] Work Phone: Start: 01-20-2017 End: 01-20-2017 *CBC with Differential *CBC with Differential [facility] [employer] Work Phone: Start: 01-20-2017 End: 01-20-2017 BNP *Brain Natriuretic Peptide BNP [facility] [employer] Work Phone: Start: 01-20-2017 End: 01-20-2017 Chest x-ray X-Ray, Chest, PA & Lateral [facility] [employer] Work Phone: Start: 01-20-2017 End: 01-20-2017 Follow Up Appt Other Follow Up Appt Other [facility] [employer] Work Phone: Start: 11-28-2016 End: 11-28-2016 DMOscar ROBLES [facility] [employer] Work Phone: Start: 11-28-2016 End: 11-28-2016 Follow Up Appt 1 year Follow Up Appt 1 year [facility] [employer] Work Phone: Start: 09-06-2016 End: 09-06-2016 NURSING CLERK NURSING CLERK [facility] [employer] Work Phone: Start: 09-06-2016 End: 09-06-2016 Follow Up Appt 6 months Follow Up Appt 6 months [facility] [employer] Work Phone: Start: 09-06-2016 End: 09-06-2016 Follow Up Appt Other Follow Up Appt Other [facility] [employer] Work Phone: Start: 08-22-2016 End: 08-23-2016 BNP *Brain Natriuretic Peptide BNP [facility] [employer] Work Phone: Start: 08-22-2016 End: 09-07-2016 DMB DMB [facility] [employer] Work Phone: Start: 08-22-2016 End: 09-07-2016 Echo tthrc r-t 2d w/wom-mode compl spec&colr d Echo Complete with Color Flow [facility] [employer] Work Phone: Start: 08-22-2016 End: 09-07-2016 Follow Up Appt 3 months Follow Up Appt 3 months [facility] [employer] Work Phone: Start: 06-08-2016 End: 08-18-2016 *MISC - Miscellaneous Lab Test #1 *MISC - Miscellaneous Lab Test #1 [facility] [employer] Work Phone: Start: 05-31-2016 End: 05-31-2016 DMB DMB [facility] [employer] Work Phone: Start: 05-31-2016 End: 05-31-2016 Follow Up Appt 4 months Follow Up Appt 4 months [facility] [employer] Work Phone: Start: 05-20-2016 End: 05-20-2016 Follow Up Appt 6 months Follow Up Appt 6 months [facility] [employer] Work Phone: Start: 05-20-2016 End: 05-20-2016 MMM MMM [facility] [employer] Work Phone: Start: 04-20-2016 End: 10-20-2015 *Hepatic Function Panel *Hepatic Function Panel [facility] [employer] Work Phone: Start: 04-20-2016 End: 10-20-2015 Lipid panel [AGGREGATE] *Lipid Profile CC PCP [facility] [employer] Work Phone: Start: 03-21-2016 End: 03-21-2016 *CBC with Differential *CBC with Differential [facility] [employer] Work Phone: Start: 03-21-2016 End: 04-29-2016 Assay of ferritin Ferritin [facility] [employer] Work Phone: Start: 03-21-2016 End: 03-21-2016 DMB DMB [facility] [employer] Work Phone: Start: 03-21-2016 End: 03-21-2016 Follow Up Appt 6 weeks Follow Up Appt 6 weeks [facility] [employer] Work Phone: Start: 03-21-2016 End: 03-21-2016 Iron and Iron binding capacity panel - Serum or Plasma *IBC Iron & Total Iron Binding Capacity [facility] [employer] Work Phone: Start: 03-21-2016 End: 03-21-2016 Reticulocytes/100 erythrocytes *Reticulocyte Count [facility] [employer] Work Phone: Start: 03-14-2016 End: 03-14-2016 Left Heart Cath Left Heart Cath [facility] [employer] Work Phone: Start: 03-09-2016 End: 03-09-2016 CBC W Auto Differential panel - Blood *CBC without Diff [facility] [employer] Work Phone: Start: 03-08-2016 End: 03-09-2016 *BMP *BMP [facility] [employer] Work Phone: Start: 03-08-2016 End: 03-09-2016 BNP *Brain Natriuretic Peptide BNP [facility] [employer] Work Phone: Start: 03-08-2016 End: 03-09-2016 Ct angiography chest w/contrast/noncontrast CTA Chest, with contrast material(s) [facility] [employer] Work Phone: Start: 03-08-2016 End: 03-08-2016 Ecg routine ecg w/least 12 lds w/i&r EKG (In office) [facility] [employer] Work Phone: Start: 03-08-2016 End: 03-08-2016 Follow Up Appt 6 weeks Follow Up Appt 6 weeks [facility] [employer] Work Phone: Start: 03-08-2016 End: 03-08-2016 MMM MMM [facility] [employer] Work Phone: Start: 02-08-2016 End: 04-29-2016 DMB DMB [facility] [employer] Work Phone: Start: 02-08-2016 End: 04-29-2016 Follow Up Appt 6 weeks Follow Up Appt 6 weeks [facility] [employer] Work Phone: Start: 02-08-2016 End: 03-18-2016 Pulmonary Function Test - complete Pulmonary Function Test - complete [facility] [employer] Work Phone: Start: 10-15-2015 End: 10-19-2015 *Hepatic Function Panel *Hepatic Function Panel [facility] [employer] Work Phone: Start: 10-15-2015 End: 10-15-2015 Follow Up Appt 6 months Follow Up Appt 6 months [facility] [employer] Work Phone: Start: 10-15-2015 End: 10-19-2015 Lipid panel [AGGREGATE] *Lipid Profile CC PCP [facility] [employer] Work Phone: Start: 10-15-2015 End: 10-15-2015 MMM MMM [facility] [employer] Work Phone: Start: 08-27-2015 End: 08-27-2015 Follow Up Appt 6 weeks Follow Up Appt 6 weeks [facility] [employer] Work Phone: Start: 08-27-2015 End: 08-27-2015 MMM MMM [facility] [employer] Work Phone: Start: 08-06-2015 End: 08-06-2015 *BMP *BMP [facility] [employer] Work Phone: Start: 08-06-2015 End: 08-06-2015 BNP *Brain Natriuretic Peptide BNP [facility] [employer] Work Phone: Start: 08-06-2015 End: 08-06-2015 CBC W Auto Differential panel - Blood *CBC without Diff [facility] [employer] Work Phone: Start: 08-06-2015 End: 08-06-2015 Follow up Appt 3 weeks Follow up Appt 3 weeks [facility] [employer] Work Phone: Start: 08-06-2015 End: 08-06-2015 MMM MMM [facility] [employer] Work Phone: Start: 07-16-2015 End: 08-27-2015 Cardiac Rehab Cardiac Rehab [facility] [employer] Work Phone: Start: 07-16-2015 End: 07-16-2015 Ecg routine ecg w/least 12 lds w/i&r EKG (In office) [facility] [employer] Work Phone: Start: 07-16-2015 End: 07-16-2015 Follow Up Appt 6 weeks Follow Up Appt 6 weeks [facility] [employer] Work Phone: Start: 07-16-2015 End: 07-16-2015 MMM MMM [facility] [employer] Work Phone: Start: 06-16-2015 End: 06-17-2015 BNP *Brain Natriuretic Peptide BNP [facility] [employer] Work Phone: Start: 06-16-2015 End: 06-16-2015 Ecg routine ecg w/least 12 lds w/i&r EKG (In office) [facility] [employer] Work Phone: Start: 06-16-2015 End: 06-16-2015 Echocardiography Echocardiogram (complete) [facility] [employer] Work Phone: Start: 06-16-2015 End: 07-16-2015 Follow Up Appt 6 months Follow Up Appt 6 months [facility] [employer] Work Phone: Start: 06-16-2015 End: 07-16-2015 MMM MMM [facility] [employer] Work Phone: Start: 12-04-2014 End: 12-04-2014 NURSING CLERK NURSING CLERK [facility] [employer] Work Phone: Start: 12-04-2014 End: 12-04-2014 Ecg routine ecg w/least 12 lds w/i&r EKG (In office) [facility] [employer] Work Phone: Start: 12-04-2014 End: 12-04-2014 Follow Up Appt 6 months Follow Up Appt 6 months [facility] [employer] Work Phone: Start: 12-04-2014 End: 12-04-2014 Nuclear stress test -Lexiscan Nuclear stress test -Lexiscan [facility] [employer] Work Phone: Start: 05-29-2014 End: 05-29-2014 24 hour holter monitor 24 hour holter monitor [facility] [employer] Work Phone: Start: 05-29-2014 End: 05-29-2014 Follow Up Appt 6 months Follow Up Appt 6 months [facility] [employer] Work Phone: Start: 05-29-2014 End: 05-29-2014 MMM MMM [facility] [employer] Work Phone: Start: 12-31-2013 End: 12-31-2013 NURSING CLERK NURSING CLERK [facility] [employer] Work Phone: Start: 12-31-2013 End: 12-31-2013 Follow Up Appt 6 months Follow Up Appt 6 months [facility] [employer] Work Phone: Start: 06-25-2013 End: 06-25-2013 Ecg routine ecg w/least 12 lds w/i&r EKG (In office) [facility] [employer] Work Phone: Start: 06-25-2013 End: 06-25-2013 Follow Up Appt 6 months Follow Up Appt 6 months [facility] [employer] Work Phone: Start: 06-25-2013 End: 06-25-2013 MMM MMM [facility] [employer] Work Phone: Start: 05-19-2013 End: 06-21-2013 *Hepatic Function Panel *Hepatic Function Panel [facility] [employer] Work Phone: Start: 05-19-2013 End: 06-21-2013 Lipid panel [AGGREGATE] *Lipid Profile CC PCP [facility] [employer] Work Phone: Start: 11-17-2012 End: 12-05-2012 *Hepatic Function Panel *Hepatic Function Panel [facility] [employer] Work Phone: Start: 11-17-2012 End: 12-05-2012 Lipid panel [AGGREGATE] *Lipid Profile [facility] [employer] Work Phone: Start: 2012 RSV Vaccine (1 - 1-dose 75+ series) RSV Vaccine (1 - 1-dose 75+ series) [facility] Start: 06-21-2012 End: 06-21-2012 Follow Up Appt 1 year Follow Up Appt 1 year [facility] [employer] Work Phone: Start: 06-23-2011 End: 06-23-2011 Follow Up Appt 1 year Follow Up Appt 1 year [facility] [employer] Work Phone: Start: 06-21-2011 Shingrix Vaccine (2 of 3) Shingrix Vaccine (2 of 3) [facility] Start: 1997 RSV Vaccine (1 - 1-dose 60+ series) RSV Vaccine (1 - 1-dose 60+ series) [facility] Start: 08-20-1953 Depression Screening Depression Screening [facility] Catheterization of left heart [facility] Work Phone: Electrocardiographic procedure [facility] Patient Education [facility] Work Phone: Patient referral [facility] Work Phone: [facility] Immunizations Immunization Date Immunization Notes Care Provider Fa cility 02-01-2022 tetanus toxoid, redu anuradha diphtheria toxoid, and acellular pertussis vaccine, adsorbed Dr. Keron Maciel Work Phone: [facility] 08-07-2020 Covid (Moderna) Dr. Keron hdez Work Phone: [facility] 07-10-2020 Covid (Moderna) Dr. Keron hdez Work Phone: [facility] 03-07-2020 influenza virus vacc ine, unspecified formulation Barbie Nova Work Phone: [facility] 02-07-2020 tetanus toxoid, redu anuradha diphtheria toxoid, and acellular pertussis vaccine, adsorbed Dr. Keron Maciel Work Phone: [facility] 03-07-2019 influenza, high dose seasonal, preservative-free Barbie Nova Work Phone: [facility] 03-03-[address] Keron Maciel Work Phone: [facility] 03-08-2018 influenza, injectabl e, quadrivalent, contains preservative Barbie Nova Work Phone: [facility] 04-07-2015 influenza, injectabl e, quadrivalent, preservative free Dr. Keron Maciel Work Phone: [facility] 04-07-2015 influenza, seasonal, injectable Dr. Keron Maciel Work Phone: [facility] 03-19-2015 influenza, high dose seasonal, preservative-free Barbie Nova Work Phone: [facility] 12-23-2014 pneumococcal conjuga te vaccine, 13 valent Barbie [employer] Work Phone: [facility] 04-03-2013 influenza virus vacc ine, unspecified formulation Barbie [email or web address] Work Phone: [facility] 04-26-2011 zoster vaccine, live Barbie [email or web address] Work Phone: [facility] Work Phone: 04-05-2010 influenza virus vacc ine, unspecified formulation Barbie [email or web address] Work Phone: [facility] 03-19-2009 influenza virus vacc ine, unspecified formulation Barbie [email or web address] Work Phone: [facility] 11-17-2005 tetanus and diphther ia toxoids, adsorbed, preservative free, for adult use (2 Lf of tetanus toxoid and 2 Lf of diphtheria toxoid) [employer] Work Phone: [facility] 04-28-2005 influenza virus vacc ine, unspecified formulation Barbie [email or web address] Work Phone: [facility] Work Phone: 03-19-2004 influenza virus vacc ine, whole virus Barbie [email or web address] Work Phone: [facility] 04-29-2003 pneumococcal polysaccharide vaccine, 23 valent Barbie Nova Work Phone: [facility] 04-29-[address] Elisabeth Maciel Work Phone: [facility] Work Phone: 04-29-2003 pneumococcal vaccine , unspecified formulation Dr. Keron Maciel Work Phone: [facility] 03-19-2003 influenza virus vacc ine, whole virus Barbie [email or web address] Work Phone: [facility] Payers Date Payer Category Payer Self-pay [id number] 2017 Medicare [employer] MEDICARE A ETNA MEDICARE PPO [id number] 2017-Present [phone] [address] [place] [address] PPO [id number] 2017 Medicare (Managed Care) [employer] [place] DICARE [id number] 2017 Private Health Insurance [facility] [id number] 2006 Unknown [id number] Medicare [id number] Medicare [id number] Unknown [id number] .[id number]. 462 Unknown [id number] 2.1.588424.3.579.2. 462 Unknown [id number] 2.1.462519.3.579.2. 462 Unknown [id number] 2.0.1.645789.3.579.2. 462 Unknown [id number] 2.0.1.773018.3.579.2. 462 Unknown [id number] 2..1.040529.3.579.2. 462 Unknown [id number] 2.16.840.1.893056.3.579.2. 462 Unknown [id number] 2.16.840.1.229136.3.579.2. 462 Unknown [id number] 2.16.840.1.624673.3.579.2. 462 Unknown [id number] 2.16.840.1.426474.3.579.2. 462 Unknown [id number] 2.16.840.1.716607.3.579.2. 462 Unknown [id number] 2.16.840.1.674495.3.579.2. 462 Unknown [id number] 2.16.840.1.093322.3.579.2. 462 Unknown [id number] 2.16.840.1.455399.3.579.2. 462 Unknown [id number] 2.16840.1.857592.3.579.2. 462 Unknown [id number] 2.16.840.1.816117.3.579.2. 462 Unknown [id number] 2.16.840.1.003374.3.579.2. 462 Unknown [id number] 2.16.840.1.071568.3.579.2. 462 Unknown [id number] 2.16.840.1.138470.3.579.2. 462 Unknown [id number] 2.16.840.1.434654.3.579.2. 462 Unknown [id number] 2.16.840.1.416541.3.579.2. 462 Unknown [id number] 2.16.840.1.315242.3.579.2. 462 Unknown [id number] 2.16.840.1.632040.3.579.2. 462 Unknown [id number] 2.16.840.1.689047.3.579.2. 462 Unknown [id number] 2.16.840.1.644422.3.579.2. 462 Unknown [id number] 2.16.840.1.069939.3.579.2. 462 Unknown [id number] 2.16.840.1.079746.3.579.2. 462 Unknown [id number] 2.16.840.1.652682.3.579.2. 462 Social History Date Type Detail Facility Start: 10-13-2021 End: 09-14-2023 Tobacco smoking status NHIS Unknown if ever smoked [facility] Start: 02-12-2020 None [facility] Start: 02-12-2020 Spouse/ Signif icant Other [facility] Start: 02-12-2020 Non-smoker [facility] Start: 1935 Sex Assigned At Male [facility] Start: 11-01-2010 Tobacco smoking stat us IDIS Ex-smoker [facility] Work Phone: Start: 10-18-1959 End: 10-17-1964 History of tobacco use Current smoker [facility] Work Phone: Start: 10-18-1959 End: 10-17-1964 History of tobacco use Cigarette Smoker [facility] Work Phone: Start: 11-01-2010 End: 07-31-2023 Cigarettes smoked current (pack per day) - Reported 1 [facility] Start: 11-01-2010 Tobacco use and exposure Smokeless tobacco non-user [facility] Work Phone: Start: 07-31-2023 End: 09-06-2024 Alcohol intake Current non-drinker of alcohol (finding) [facility] Start: 09-24-2018 End: 07-31-2023 Tobacco use panel [facility] Adult Depression Screening Assessment 0 [facility] Start: 1935 Sex Assigned At Not on file [facility] Functional Status Date Assessment Result Facility 05-03-2017 Are you deaf, or do you have serious difficulty hearing No 05/03/2017 3:51 PM Soham Mcgraw III, MD No [facility] 05-03-2017 Are you blind, or do you have serious difficulty seeing, even when wearing glasses No 05/03/2017 3:51 PM Soham Mcgraw III, MD No [facility] 05-03-2017 Do you have serious difficulty walking or climbing stairs No 05/03/2017 3:51 PM Soham Mcgraw III, MD No [facility] 05-03-2017 Do you have difficul ty dressing or bathing No 05/03/2017 3:51 PM Soham Mcgraw III, MD No [facility] 05-03-2017 Because of a physica l, mental, or emotional condition, do you have difficulty doing errands alone such as visiting a physician's office or shopping No 05/03/2017 3:51 PM Soham Mcgraw III, MD No [facility] Mental Status Date Assessment Result Facility 05-03-2017 Because of a physica l, mental, or emotional condition, do you have serious difficulty concentrating, remembering, or making decisions No 05/03/2017 3:51 PM Soham Mcgraw III, MD [facility] Clinical Notes 07-01-2015 to 09-06-2024 Patient InstructionsBarbie Nova - 09/06/2024 1:52 PM Cintia Koroma MA Student - 09/06/2024 1:11 PM Barbie Montenegro - 06/06/2024 9:56 AM Rosita Eid RN - 06/06/2024 9:44 AM EST Note Date & Type Note Facility 09-06-2024 Instructions Barbie Nova - 09/06/2024 1:58 PM EDT Diabetes Foot Care Instructions When you have diabetes, proper foot care is very important. Poor foot care may lead to amputation of a foot or leg. As a person with diabetes, you are more vulnerable to foot problems, because diabetes can damage your nerves and reduce blood flow to your feet. Here are some diabetes foot care tips to follow: Wash and Dry Your Feet Daily Use mild soaps Use warm water Pat your skin dry; do not rub. Thoroughly dry your feet. After washing, use lotion on your feet to prevent cracking. Do not put lotion between your toes. Examine Your Feet Each Day Check the tops and bottoms of your feet. Have someone else look at your feet if you cannot see them. Check for dry, cracked skin. Look for blisters, cuts, scratches, or other sores. Check for redness, increased warmth, or tenderness when touching any area of your feet. Check for ingrown toenails, corns, and calluses. If you get a blister or sore from your shoes, do not pop it. Apply a bandage and wear a different pair of shoes. Take Care of Your Toenails Cut toenails after bathing, when they are soft. Cut toenails straight across and smooth with a nail file. Avoid cutting into the corners of toes. Do not cut cuticles. If you have neuropathy (or decreased sensation in your feet) a secondary art teacher should always cut your toenails. Be Careful When Exercising Walk and exercise in comfortable shoes. Do not exercise when you have open sores on your feet. Protect Your Feet With Shoes and Socks Never go barefoot. Always protect your feet by wearing shoes or hard-soled slippers or footwear. Avoid shoes with high heels and pointed toes. Avoid shoes that expose your toes or heels (such as open-toed shoes or sandals). These types of shoes increase your risk for injury and potential infections. Try on new footwear with the type of socks you usually wear. Do not wear new shoes for more than an hour at a time. Change your socks daily. Look and feel inside your shoes before putting them on to make sure there are no foreign objects or rough areas. Avoid tight socks. Wear natural-fiber socks (cotton, wool, or a cotton-wool blend). Wear special shoes if your health care provider recommends them. Wear shoes/boots that will protect your feet from various weather conditions (cold, moisture, etc.). Make sure your shoes fit properly. If you have neuropathy (nerve damage), you may not notice that your shoes are too tight. Perform the footwear test described below. Footwear Test Use this simple test to see if your shoes fit correctly: Stand on a piece of paper. (Make sure you are standing and not sitting, because your foot changes shape when you stand.) Trace the outline of your foot. Trace the outline of your shoe. Compare the tracings: Is the shoe too narrow? Is your foot crammed into the shoe? The shoe should be at least 1/2 inch longer than your longest toe and as wide as your foot. Proper Shoe Choices The following types of shoes are best for people with diabetes Closed toes and heels Leather uppers without a seam inside At least 1/2 inch extra space at the end of your longest toe Inside of shoe should be soft with no rough areas Outer sole should be made of stiff material Shoes should be at least as wide as your feet Tips for Foot Care in Diabetes Don't wait to treat a minor foot problem if you have diabetes. Follow your health care provider's guidelines and first aid guidelines. Report foot injuries and infections to your health care provider immediately. Check water temperature with your elbow, not your foot. Do not use a heating pad on your feet. Do not cross your legs. Do not self-treat your corns, calluses, or other foot problems. Go to your health care provider or secondary art teacher to treat these conditions. Can use tubigrip for lower extremity swelling. Apply during the day and can remove at night documented in this encounter [facility] 09-06-2024 Note HNO ID: [id number] Author: BARBIE NOVA, ? Service: ? Author Type: Physician Type: Progress Notes Filed: 09/06/2024 14:17 Note Text: Last saw pcp: not in chart Subjective: Patient presents to clinic c/o painful toenails. They state that the nails are especially painful with shoe gear and pressure. Patient states that nails 1-5 b/l are painful. Patient admits to being diabetic and states that their blood sugar was 113 mg/dL this AM. No other pedal complaints at this time. Patient states no change in medications or medical history since last visit. Objective: Patient presents to clinic ambulating in diabetic shoes Vasc: DP and PT pulses are faintly palpable bilateral. CFT is less than 5 seconds bilateral. Skin temperature is warm to cool proximal to distal bilateral. There is moderate edema or varicosities noted. Neuro: Protective sensation is decreased to the foot and toes when tested with the 5.07 SWM bilateral. Vibratory sensation is absent at the hallux IPJ bilateral. The hallux is downgoing bilateral. Derm: Nails 1-5 b/l are painful, discolored-yellow, thick, crumbly, dystrophic and with subungal debris. Skin is of normal turgor, texture and hair growth is absent bilateral. There are no hyperkeratosis, ulcerations, scars, verruca or other lesions noted. Ortho: Muscle strength is 5/5 for all pedal groups tested. Ankle joint DF is decreased with the knee extended with no pain or crepitus noted. 1st MPJ ROM is decreased bilateral. Assessment: (B35.1) Onychomycosis (primary encounter diagnosis) (M79.675) Pain in toe of left foot (M79.674) Pain in toe of right foot (E11.42) Diabetic polyneuropathy associated with type 2 diabetes mellitus (HCC) (I87.2) Venous insufficiency Plan: Patient was seen and evaluated. Nails 1-5 bilateral were debrided in length and thickness. Patient was instructed on the continued importance of diabetic foot care along with proper diet and keeping their blood sugar under control to prevent complications. I stressed the importance of avoiding barefoot walking, wearing good shoes and inspection of feet. I discussed how this patient suffers from neuropathy and that it is important that she monitor for any open wounds. If she develops any issues, she is to contact our office immediately and we will have them seen. Discussed swelling in legs. Will try tubigrip during the day. Can apply during the day and remove at night. Patient is to RTC in 3-4 months. Barbie Nova DPM [facility] 09-06-2024 History of Present illness Narrative Last saw pcp: not in chart Subjective: Patient presents to clinic c/o painful toenails. They state that the nails are especially painful with shoe gear and pressure. Patient states that nails 1-5 b/l are painful. Patient admits to being diabetic and states that their blood sugar was 113 mg/dL this AM. No other pedal complaints at this time. Patient states no change in medications or medical history since last visit. Objective: Patient presents to clinic ambulating in diabetic shoes Vasc: DP and PT pulses are faintly palpable bilateral. CFT is less than 5 seconds bilateral. Skin temperature is warm to cool proximal to distal bilateral. There is moderate edema or varicosities noted. Neuro: Protective sensation is decreased to the foot and toes when tested with the 5.07 SWM bilateral. Vibratory sensation is absent at the hallux IPJ bilateral. The hallux is downgoing bilateral. Derm: Nails 1-5 b/l are painful, discolored-yellow, thick, crumbly, dystrophic and with subungal debris. Skin is of normal turgor, texture and hair growth is absent bilateral. There are no hyperkeratosis, ulcerations, scars, verruca or other lesions noted. Ortho: Muscle strength is 5/5 for all pedal groups tested. Ankle joint DF is decreased with the knee extended with no pain or crepitus noted. 1st MPJ ROM is decreased bilateral. Assessment: (B35.1) Onychomycosis (primary encounter diagnosis) (M79.675) Pain in toe of left foot (M79.674) Pain in toe of right foot (E11.42) Diabetic polyneuropathy associated with type 2 diabetes mellitus (HCC) (I87.2) Venous insufficiency Plan: Patient was seen and evaluated. Nails 1-5 bilateral were debrided in length and thickness. Patient was instructed on the continued importance of diabetic foot care along with proper diet and keeping their blood sugar under control to prevent complications. I stressed the importance of avoiding barefoot walking, wearing good shoes and inspection of feet. I discussed how this patient suffers from neuropathy and that it is important that she monitor for any open wounds. If she develops any issues, she is to contact our office immediately and we will have them seen. Discussed swelling in legs. Will try tubigrip during the day. Can apply during the day and remove at night. Patient is to RTC in 3-4 months. Barbie Nova DPM [employer]OWSHE[employer] DATA Patient presents with: Left Foot - Established Patient, Follow Up, Diabetic Foot Care Right Foot - Established Patient, Follow Up, Diabetic Foot Care Cintia Izquierdo MA Student documented in this encounter [facility] 09-06-2024 Note HNO ID: [id number] Author: CINTIA IZQUIERDO MA Student Service: ? Author Type: Student Type: Progress Notes Filed: 09/06/2024 14:17 Note Text: AMB ROOMING INTAKE FLOWSHEET DATA Patient presents with: Left Foot - Established Patient, Follow Up, Diabetic Foot Care Right Foot - Established Patient, Follow Up, Diabetic Foot Care Cintia Izquierdo MA Student [facility] 06-16-2024 Note [facility] Medical Records Department [address] [place] [address] Discharge Summary 06/16/24 0637 MR#: [id number] Acct: [id number] Name: OLMAN SYED Rep #: [id number] : [id number] 88 From: Amalia Moncada MD PCP: Dr. Keron Maciel MD Status:ADM BRITTANY Location: [place] [address] Providers Date of Admission: 06/15/24 Date of Discharge: 06/16/24 Primary Care Physician: Dr. Keron Maciel MD Reason For Visit: SYNCOPE VS TIA, WITH SLURRED SPEECH X 2 Diagnosis Discharge Diagnosis (1) Syncope: Status: Acute Code(s): R55 - Syncope and collapse Qualifiers: Syncope type: unspecified Qualified Code(s): R55 - Syncope and collapse Plan: DISCHARGE DIAGNOSES: #1. Syncopal events suspected secondary to Acute Hypoglycemic event, low suspicion of TIA, CVA ruled out #2. Diabetes mellitus type II with chronic neuropathy with hypoglycemia with concern for hypoglycemic events associated with #1 #3. History CVA with chronic mild cognitive impairment #4. CAD #5. Chronic Kidney Disease Stage III, unclear subtype #6. Parkinson's disease #7. Chronic anemia/iron deficiency anemia #8. Adrenal insufficiency #9. Anxiety and depression #10. Hypothyroidism #11. Hypertension #12. Hyperlipidemia #13. Obesity #14. Former tobacco use #15. GERD #16. DANYELL on CPAP q HS Medications at Discharge Home Medications cholecalciferol (vitamin D3) 125 mcg (5,000 unit) capsule 5,000 unit PO DAILY vitamin 06/29/15 finasteride 5 mg tablet 5 mg PO DAILY prostate 06/29/15 aspirin 81 mg tablet,delayed release 81 mg PO DAILY heart health 07/24/15 acetaminophen 500 mg tablet 1,000 mg (2 x 500 mg) PO Q6H PRN PRN Pain Score 1-3/02/19/20 Elizabeth Stevensonard #1 ea 10/14/20 vitamins A,C,K-siak-qkujya 2,148 mcg-113 mg-45 mg-17.4 mg tablet ([employer]er[employer] AREDS) 1 tab PO BID 12/17/20 pen needle, diabetic 32 gauge x 1/ #100 ea 12/25/20 clopidogrel 75 mg tablet 75 mg PO DAILY TIA #90 tabs 09/11/23 amlodipine 5 mg tablet 5 mg PO DAILY BP #90 tabs 09/19/23 pravastatin 20 mg tablet 20 mg PO DAILY cholesterol #90 tabs 10/03/23 Compression stockings (-) #2 ea 01/04/24 Left AFO #1 ea 01/04/24 levothyroxine 50 mcg tablet 50 mcg PO DAILY thyroid #90 tabs 02/01/24 escitalopram oxalate 10 mg tablet 10 mg PO DAILY #90 tabs 03/05/24 furosemide 40 mg tablet 40 mg PO DAILY #90 TABLETS 03/05/24 pantoprazole 40 mg tablet,delayed release See Rx Instructions .Route .COMPLEX #90 tabs 03/05/24 ranolazine 500 mg tablet,extended release,12 hr 500 mg PO BID #180 tabs 03/12/24 metformin 500 mg tablet 500 mg PO BIDCM diabetes #180 tabs 03/19/24 carbidopa 25 mg-levodopa 100 mg tablet (Sinemet) See Rx Instructions .Route .COMPLEX #150 tabs 03/28/24 fludrocortisone 0.1 mg tablet See Rx Instructions PO .COMPLEX #28 tabs 03/28/24 isosorbide mononitrate 30 mg tablet,extended release 24 hr 30 mg PO DAILY #90 TABLETS 04/01/24 cyclobenzaprine 5 mg tablet 5 mg PO BID PRN muscle spasm #20 tabs 05/20/24 ascorbic acid (vitamin C) 1,000 mg tablet (C-1000) 1 g PO DAILY 06/15/24 cyanocobalamin (vitamin B-12) 1,000 mcg tablet (Vitamin B-12) 1,000 mcg PO DAILY 06/15/24 ferrous sulfate 325 mg (65 mg iron) tablet (Feosol) 325 mg PO DAILY 06/15/24 folic acid 1 mg tablet 1 mg PO DAILY #30 tabs 06/15/24 hydrocodone-acetaminophen 5-325mg 5mg-325mg 0.5 - 1 tab PO BID PRN PRN pain 06/15/24 trazodone 50 mg tablet 25 mg PO QHS PRN PRN insomnia 06/15/24 zinc acetate 50 mg (zinc) capsule 50 mg PO DAILY 06/15/24 Hospital Course Operations None Procedures 2-D Echocardiogram and EKG Summary of Care Provided Minutes Spent on Discharge: 35 Hospital Course: The patient is an 88 y/o M w/ PMHx: Hx CVA, GERD, BPH with obstructive pathology, HTN, HLD, Hypothyroidism, Morbid obesity, CKD stage III unclear subtype, Chronic anemia/Fe deficiency anemia, DANYELL, Diabetes mellitus type II with chronic neuropathy, CAD s/p PCI who presented to the [facility] ED on 06/15/24 with history of slurred speech and syncopal event with family noting that they have been sitting down to dinner when he suddenly lost consciousness with an episode of slurred speech that lasted approximately 1 minute and then resolved giving him orange juice which seemed to improve his symptoms prompting ED evaluation to be cautious. Admitted to PCU for ongoing monitoring. MRI brain with no acute intracranial findings nor any evidence of any acute or subacute or even a remote infarct. Echocardiogram with normal LV size, LV EF 55%, contrast injection performed, compared to previous study LV systolic function improved. FLP with total cholesterol 148, triglycerides 189, LDL 64, VLDL 38, HDL 46. PT/OT/Speech/Nutrition evaluation per protocol. Patient continued on Plavix, aspirin, continued on home statin, FLP with total cholesterol 148, triglycerides 189, LDL 64, VLDL 38, HDL 46, mag 1.8, TSH 3.230, folic acid 8.0, HgbA1c 6. (more content not included)... [facility] 06-06-2024 Note HNO ID: [id number] Author: BARBIE NOVA, ? Service: ? Author Type: Physician Type: Progress Notes Filed: 07/20/2024 21:58 Note Text: Last saw pcp: not in chart Subjective: Patient presents to clinic c/o painful toenails. They state that the nails are especially painful with shoe gear and pressure. Patient states that nails 1-5 b/l are painful. Patient admits to being diabetic. No other pedal complaints at this time. Patient states no change in medications or medical history since last visit. Objective: Patient presents to clinic ambulating in diabetic shoe Vasc: DP and PT pulses are palpable bilateral. CFT is less than 5 seconds bilateral. Skin temperature is warm to cool proximal to distal bilateral. There is moderate edema or varicosities noted. Neuro: Protective sensation is intact to the foot and toes when tested with the 5.07 SWM bilateral. Vibratory sensation is decreased at the hallux IPJ bilateral. The hallux is downgoing bilateral. Derm: Nails 1-5 b/l are painful, discolored-yellow, thick, crumbly, dystrophic and with subungal debris. Skin is of normal turgor, texture and hair growth is present bilateral. There is small porokeratosis to left heel. no ulcerations, scars, verruca or other lesions noted. Ortho: Muscle strength is 5/5 for all pedal groups tested. Ankle joint DF is decreased with the knee extended with no pain or crepitus noted. 1st MPJ ROM is decreased bilateral. Assessment: (B35.1) Onychomycosis (primary encounter diagnosis) (M79.675) Pain in toe of left foot (M79.674) Pain in toe of right foot (E11.42) Diabetic polyneuropathy associated with type 2 diabetes mellitus (HCC) Plan: Patient was seen and evaluated. Nails 1-5 bilateral were debrided in length and thickness. Patient was instructed on the continued importance of diabetic foot care along with proper diet and keeping their blood sugar under control to prevent complications. Stressed the importance of avoiding barefoot walking, wearing good shoes and inspection of feet. Patient is to RTC in 3-4 months. Barbie Nova DPM [facility] 06-06-2024 History of Present illness Narrative Last saw pcp: not in chart Subjective: Patient presents to clinic c/o painful toenails. They state that the nails are especially painful with shoe gear and pressure. Patient states that nails 1-5 b/l are painful. Patient admits to being diabetic. No other pedal complaints at this time. Patient states no change in medications or medical history since last visit. Objective: Patient presents to clinic ambulating in diabetic shoe Vasc: DP and PT pulses are palpable bilateral. CFT is less than 5 seconds bilateral. Skin temperature is warm to cool proximal to distal bilateral. There is moderate edema or varicosities noted. Neuro: Protective sensation is intact to the foot and toes when tested with the 5.07 SWM bilateral. Vibratory sensation is decreased at the hallux IPJ bilateral. The hallux is downgoing bilateral. Derm: Nails 1-5 b/l are painful, discolored-yellow, thick, crumbly, dystrophic and with subungal debris. Skin is of normal turgor, texture and hair growth is present bilateral. There is small porokeratosis to left heel. no ulcerations, scars, verruca or other lesions noted. Ortho: Muscle strength is 5/5 for all pedal groups tested. Ankle joint DF is decreased with the knee extended with no pain or crepitus noted. 1st MPJ ROM is decreased bilateral. Assessment: (B35.1) Onychomycosis (primary encounter diagnosis) (M79.675) Pain in toe of left foot (M79.674) Pain in toe of right foot (E11.42) Diabetic polyneuropathy associated with type 2 diabetes mellitus (HCC) Plan: Patient was seen and evaluated. Nails 1-5 bilateral were debrided in length and thickness. Patient was instructed on the continued importance of diabetic foot care along with proper diet and keeping their blood sugar under control to prevent complications. Stressed the importance of avoiding barefoot walking, wearing good shoes and inspection of feet. Small porokeratosis reduced with 15 blade as courtesy. Patient is to RTC in 3-4 months. Barbie Nova DPM Patient presents with: Left Foot - Established Patient, Follow Up, Diabetic Foot Care Right Foot - Established Patient, Follow Up, Diabetic Foot Care Patient presents for follow up diabetic foot/nail care. [facility] 02/29/24 documented in this encounter [facility] 06-06-2024 Instructions Barbie Nova - 06/06/2024 9:56 AM EST Diabetes Foot Care Instructions When you have diabetes, proper foot care is very important. Poor foot care may lead to amputation of a foot or leg. As a person with diabetes, you are more vulnerable to foot problems, because diabetes can damage your nerves and reduce blood flow to your feet. Here are some diabetes foot care tips to follow: Wash and Dry Your Feet Daily Use mild soaps Use warm water Pat your skin dry; do not rub. Thoroughly dry your feet. After washing, use lotion on your feet to prevent cracking. Do not put lotion between your toes. Examine Your Feet Each Day Check the tops and bottoms of your feet. Have someone else look at your feet if you cannot see them. Check for dry, cracked skin. Look for blisters, cuts, scratches, or other sores. Check for redness, increased warmth, or tenderness when touching any area of your feet. Check for ingrown toenails, corns, and calluses. If you get a blister or sore from your shoes, do not pop it. Apply a bandage and wear a different pair of shoes. Take Care of Your Toenails Cut toenails after bathing, when they are soft. Cut toenails straight across and smooth with a nail file. Avoid cutting into the corners of toes. Do not cut cuticles. If you have neuropathy (or decreased sensation in your feet) a secondary art teacher should always cut your toenails. Be Careful When Exercising Walk and exercise in comfortable shoes. Do not exercise when you have open sores on your feet. Protect Your Feet With Shoes and Socks Never go barefoot. Always protect your feet by wearing shoes or hard-soled slippers or footwear. Avoid shoes with high heels and pointed toes. Avoid shoes that expose your toes or heels (such as open-toed shoes or sandals). These types of shoes increase your risk for injury and potential infections. Try on new footwear with the type of socks you usually wear. Do not wear new shoes for more than an hour at a time. Change your socks daily. Look and feel inside your shoes before putting them on to make sure there are no foreign objects or rough areas. Avoid tight socks. Wear natural-fiber socks (cotton, wool, or a cotton-wool blend). Wear special shoes if your health care provider recommends them. Wear shoes/boots that will protect your feet from various weather conditions (cold, moisture, etc.). Make sure your shoes fit properly. If you have neuropathy (nerve damage), you may not notice that your shoes are too tight. Perform the footwear test described below. Footwear Test Use this simple test to see if your shoes fit correctly: Stand on a piece of paper. (Make sure you are standing and not sitting, because your foot changes shape when you stand.) Trace the outline of your foot. Trace the outline of your shoe. Compare the tracings: Is the shoe too narrow? Is your foot crammed into the shoe? The shoe should be at least 1/2 inch longer than your longest toe and as wide as your foot. Proper Shoe Choices The following types of shoes are best for people with diabetes Closed toes and heels Leather uppers without a seam inside At least 1/2 inch extra space at the end of your longest toe Inside of shoe should be soft with no rough areas Outer sole should be made of stiff material Shoes should be at least as wide as your feet Tips for Foot Care in Diabetes Don't wait to treat a minor foot problem if you have diabetes. Follow your health care provider's guidelines and first aid guidelines. Report foot injuries and infections to your health care provider immediately. Check water temperature with your elbow, not your foot. Do not use a heating pad on your feet. Do not cross your legs. Do not self-treat your corns, calluses, or other foot problems. Go to your health care provider or secondary art teacher to treat these conditions. documented in this encounter [facility] 06-06-2024 Note HNO ID: [id number] Author: ROSITA GARNER RN Service: ? Author Type: Registered Nurse Type: Progress Notes Filed: 06/06/2024 10:22 Note Text: Patient presents with: Left Foot - Established Patient, Follow Up, Diabetic Foot Care Right Foot - Established Patient, Follow Up, Diabetic Foot Care Patient presents for follow up diabetic foot/nail care. [facility] 02/29/24 [facility] 02-29-2024 Note HNO ID: [id number] Author: BARBIE NOVA, ? Service: ? Author Type: Physician Type: Progress Notes Filed: 02/29/2024 14:01 Note Text: Last time saw pcp: not in chart Subjective: Patient presents to clinic c/o painful toenails. They state that the nails are especially painful with shoe gear and pressure. Patient states that nails 1-5 b/l are painful. Patient admits to being diabetic. Patient denies any burning, tingling or numbness in feet. No other pedal complaints at this time. Patient states no change in medications or medical history since last visit. Objective: Patient presents to clinic ambulating in [facility] Vasc: DP and PT pulses are palpable bilateral. CFT is less than 5 seconds bilateral. Skin temperature is warm to cool proximal to distal bilateral. There is mild edema or varicosities noted. Neuro: Protective sensation is intact to the foot and toes when tested with the 5.07 SWM bilateral. Vibratory sensation is decreased at the hallux IPJ bilateral. The hallux is downgoing bilateral. Derm: Nails 1-5 b/l are painful, discolored-yellow, thick, crumbly, dystrophic and with subungal debris. Skin is of normal turgor, texture and hair growth is present bilateral. There are no hyperkeratosis, ulcerations, scars, verruca or other lesions noted. Prior callus are now resovled Ortho: Muscle strength is 5/5 for all pedal groups tested. Ankle joint DF is decreased with the knee extended with no pain or crepitus noted. 1st MPJ ROM is decreased bilateral. Assessment: (B35.1) Onychomycosis (primary encounter diagnosis) (M79.675) Pain in toe of left foot (M79.674) Pain in toe of right foot (E11.42) Diabetic polyneuropathy associated with type 2 diabetes mellitus (HCC) Plan: Patient was seen and evaluated. Nails 1-5 bilateral were debrided in length and thickness. Patient was instructed on the continued importance of diabetic foot care along with proper diet and keeping their blood sugar under control to prevent complications. Stressed the importance of avoiding barefoot walking, wearing good shoes. Await the arrival of diabetic shoes and afo. Patient is to RTC in 3-4 months. Barbie Nova DPM [facility] 02-29-2024 History of Present illness Narrative Last time saw pcp: not in chart Subjective: Patient presents to clinic c/o painful toenails. They state that the nails are especially painful with shoe gear and pressure. Patient states that nails 1-5 b/l are painful. Patient admits to being diabetic. Patient denies any burning, tingling or numbness in feet. No other pedal complaints at this time. Patient states no change in medications or medical history since last visit. Objective: Patient presents to clinic ambulating in [facility] Vasc: DP and PT pulses are palpable bilateral. CFT is less than 5 seconds bilateral. Skin temperature is warm to cool proximal to distal bilateral. There is mild edema or varicosities noted. Neuro: Protective sensation is intact to the foot and toes when tested with the 5.07 SWM bilateral. Vibratory sensation is decreased at the hallux IPJ bilateral. The hallux is downgoing bilateral. Derm: Nails 1-5 b/l are painful, discolored-yellow, thick, crumbly, dystrophic and with subungal debris. Skin is of normal turgor, texture and hair growth is present bilateral. There are no hyperkeratosis, ulcerations, scars, verruca or other lesions noted. Prior callus are now resovled Ortho: Muscle strength is 5/5 for all pedal groups tested. Ankle joint DF is decreased with the knee extended with no pain or crepitus noted. 1st MPJ ROM is decreased bilateral. Assessment: (B35.1) Onychomycosis (primary encounter diagnosis) (M79.675) Pain in toe of left foot (M79.674) Pain in toe of right foot (E11.42) Diabetic polyneuropathy associated with type 2 diabetes mellitus (HCC) Plan: Patient was seen and evaluated. Nails 1-5 bilateral were debrided in length and thickness. Patient was instructed on the continued importance of diabetic foot care along with proper diet and keeping their blood sugar under control to prevent complications. Stressed the importance of avoiding barefoot walking, wearing good shoes. Await the arrival of diabetic shoes and afo. Patient is to RTC in 3-4 months. Barbie Nova DPM Patient presents with: Left Foot - Established Patient, Follow Up, Diabetic Foot Check Right Foot - Established Patient, Follow Up, Diabetic Foot Check Patient presents for follow up diabetic foot/nail care. Due for diabetic foot exam. [facility] 11/16/23 documented in this encounter [facility] 02-29-2024 Note HNO ID: [id number] Author: ROSITA GARNER RN Service: ? Author Type: Registered Nurse Type: Progress Notes Filed: 02/29/2024 14:01 Note Text: Patient presents with: Left Foot - Established Patient, Follow Up, Diabetic Foot Check Right Foot - Established Patient, Follow Up, Diabetic Foot Check Patient presents for follow up diabetic foot/nail care. Due for diabetic foot exam. [facility] 11/16/23 [facility] 11-16-2023 Instructions Barbie Nova - 11/16/2023 1:21 PM EDT Diabetes Foot Care Instructions When you have diabetes, proper foot care is very important. Poor foot care may lead to amputation of a foot or leg. As a person with diabetes, you are more vulnerable to foot problems, because diabetes can damage your nerves and reduce blood flow to your feet. Here are some diabetes foot care tips to follow: Wash and Dry Your Feet Daily Use mild soaps Use warm water Pat your skin dry; do not rub. Thoroughly dry your feet. After washing, use lotion on your feet to prevent cracking. Do not put lotion between your toes. Examine Your Feet Each Day Check the tops and bottoms of your feet. Have someone else look at your feet if you cannot see them. Check for dry, cracked skin. Look for blisters, cuts, scratches, or other sores. Check for redness, increased warmth, or tenderness when touching any area of your feet. Check for ingrown toenails, corns, and calluses. If you get a blister or sore from your shoes, do not pop it. Apply a bandage and wear a different pair of shoes. Take Care of Your Toenails Cut toenails after bathing, when they are soft. Cut toenails straight across and smooth with a nail file. Avoid cutting into the corners of toes. Do not cut cuticles. If you have neuropathy (or decreased sensation in your feet) a secondary art teacher should always cut your toenails. Be Careful When Exercising Walk and exercise in comfortable shoes. Do not exercise when you have open sores on your feet. Protect Your Feet With Shoes and Socks Never go barefoot. Always protect your feet by wearing shoes or hard-soled slippers or footwear. Avoid shoes with high heels and pointed toes. Avoid shoes that expose your toes or heels (such as open-toed shoes or sandals). These types of shoes increase your risk for injury and potential infections. Try on new footwear with the type of socks you usually wear. Do not wear new shoes for more than an hour at a time. Change your socks daily. Look and feel inside your shoes before putting them on to make sure there are no foreign objects or rough areas. Avoid tight socks. Wear natural-fiber socks (cotton, wool, or a cotton-wool blend). Wear special shoes if your health care provider recommends them. Wear shoes/boots that will protect your feet from various weather conditions (cold, moisture, etc.). Make sure your shoes fit properly. If you have neuropathy (nerve damage), you may not notice that your shoes are too tight. Perform the footwear test described below. Footwear Test Use this simple test to see if your shoes fit correctly: Stand on a piece of paper. (Make sure you are standing and not sitting, because your foot changes shape when you stand.) Trace the outline of your foot. Trace the outline of your shoe. Compare the tracings: Is the shoe too narrow? Is your foot crammed into the shoe? The shoe should be at least 1/2 inch longer than your longest toe and as wide as your foot. Proper Shoe Choices The following types of shoes are best for people with diabetes Closed toes and heels Leather uppers without a seam inside At least 1/2 inch extra space at the end of your longest toe Inside of shoe should be soft with no rough areas Outer sole should be made of stiff material Shoes should be at least as wide as your feet Tips for Foot Care in Diabetes Don't wait to treat a minor foot problem if you have diabetes. Follow your health care provider's guidelines and first aid guidelines. Report foot injuries and infections to your health care provider immediately. Check water temperature with your elbow, not your foot. Do not use a heating pad on your feet. Do not cross your legs. Do not self-treat your corns, calluses, or other foot problems. Go to your health care provider or secondary art teacher to treat these conditions. documented in this encounter [facility] 11-16-2023 Note HNO ID: [id number] Author: BARBIE NOVA, ? Service: ? Author Type: Physician Type: Progress Notes Filed: 11/16/2023 13:21 Note Text: Last saw pcp: 07/27/23 Subjective: Patient presents to clinic c/o painful toenails. They state that the nails are especially painful with shoe gear and pressure. Patient states that nails 1 b/l are painful. Patient admits to being diabetic. No other pedal complaints at this time. Patient states no change in medications or medical history since last visit. Objective: Patient presents to clinic ambulating in diabetic shoes Vasc: DP and PT pulses are palpable bilateral. CFT is less than 5 seconds bilateral. Skin temperature is warm to cool proximal to distal bilateral. There is mild edema or varicosities noted. Neuro: Protective sensation is intact to the foot and toes when tested with the 5.07 SWM bilateral. Vibratory sensation is absent at the hallux IPJ bilateral. The hallux is downgoing bilateral. Derm: Nails 1-5 b/l are painful, discolored-yellow, thick, crumbly, dystrophic and with subungal debris. Skin is of normal turgor, texture and hair growth is decreased bilateral. There are no hyperkeratosis, ulcerations, scars, verruca or other lesions noted. Ortho: Muscle strength is 5/5 for all pedal groups tested. Ankle joint DF is decreased with the knee extended with no pain or crepitus noted. 1st MPJ ROM is decreased bilateral. Assessment: (B35.1) Onychomycosis (primary encounter diagnosis) (M79.675) Pain in toe of left foot (M79.674) Pain in toe of right foot (E11.42) Diabetic polyneuropathy associated with type 2 diabetes mellitus (HCC) Plan: Patient was seen and evaluated. Nails 1-5 bilateral were debrided in length and thickness. Patient was instructed on the continued importance of diabetic foot care along with proper diet and keeping their blood sugar under control to prevent complications. Discussed the importance of avoiding barefoot walking, wearing diabetic shoes and inspection of feet Past history of callus. No callus today. Continue with lotion and diabetic shoe Patient is to RTC in 3-4 months. Barbie Nova DPM [facility] 11-16-2023 History of Present illness Narrative Last saw pcp: 07/27/23 Subjective: Patient presents to clinic c/o painful toenails. They state that the nails are especially painful with shoe gear and pressure. Patient states that nails 1 b/l are painful. Patient admits to being diabetic. No other pedal complaints at this time. Patient states no change in medications or medical history since last visit. Objective: Patient presents to clinic ambulating in diabetic shoes Vasc: DP and PT pulses are palpable bilateral. CFT is less than 5 seconds bilateral. Skin temperature is warm to cool proximal to distal bilateral. There is mild edema or varicosities noted. Neuro: Protective sensation is intact to the foot and toes when tested with the 5.07 SWM bilateral. Vibratory sensation is absent at the hallux IPJ bilateral. The hallux is downgoing bilateral. Derm: Nails 1-5 b/l are painful, discolored-yellow, thick, crumbly, dystrophic and with subungal debris. Skin is of normal turgor, texture and hair growth is decreased bilateral. There are no hyperkeratosis, ulcerations, scars, verruca or other lesions noted. Ortho: Muscle strength is 5/5 for all pedal groups tested. Ankle joint DF is decreased with the knee extended with no pain or crepitus noted. 1st MPJ ROM is decreased bilateral. Assessment: (B35.1) Onychomycosis (primary encounter diagnosis) (M79.675) Pain in toe of left foot (M79.674) Pain in toe of right foot (E11.42) Diabetic polyneuropathy associated with type 2 diabetes mellitus (HCC) Plan: Patient was seen and evaluated. Nails 1-5 bilateral were debrided in length and thickness. Patient was instructed on the continued importance of diabetic foot care along with proper diet and keeping their blood sugar under control to prevent complications. Discussed the importance of avoiding barefoot walking, wearing diabetic shoes and inspection of feet Past history of callus. No callus today. Continue with lotion and diabetic shoe Patient is to RTC in 3-4 months. Barbie Nova DPM [facility] ROOMING INTAKE FLOWSHEET DATA Patient presents with: Left Foot - Established Patient, Diabetic Foot Care Right Foot - Established Patient, Diabetic Foot Care Dinorah Dempsey LPN documented in this encounter [facility] 11-16-2023 Note HNO ID: [id number] Author: DINORAH DEMPSEY LPN Service: ? Author Type: LICENSED NURSE Type: Progress Notes Filed: 11/16/2023 13:21 Note Text: AMB ROOMING INTAKE FLOWSHEET DATA Patient presents with: Left Foot - Established Patient, Diabetic Foot Care Right Foot - Established Patient, Diabetic Foot Care Dinorah Dempsey LPN [facility] 07-31-2023 Miscellaneous Notes Addended by: BARBIE NOVA DPM on: 07/31/2023 01:32 PM Modules accepted: Orders documented in this encounter [facility] 07-31-2023 Instructions Barbie Nova - 07/31/2023 1:15 PM EST Diabetes Foot Care Instructions When you have diabetes, proper foot care is very important. Poor foot care may lead to amputation of a foot or leg. As a person with diabetes, you are more vulnerable to foot problems, because diabetes can damage your nerves and reduce blood flow to your feet. Here are some diabetes foot care tips to follow: Wash and Dry Your Feet Daily Use mild soaps Use warm water Pat your skin dry; do not rub. Thoroughly dry your feet. After washing, use lotion on your feet to prevent cracking. Do not put lotion between your toes. Examine Your Feet Each Day Check the tops and bottoms of your feet. Have someone else look at your feet if you cannot see them. Check for dry, cracked skin. Look for blisters, cuts, scratches, or other sores. Check for redness, increased warmth, or tenderness when touching any area of your feet. Check for ingrown toenails, corns, and calluses. If you get a blister or sore from your shoes, do not pop it. Apply a bandage and wear a different pair of shoes. Take Care of Your Toenails Cut toenails after bathing, when they are soft. Cut toenails straight across and smooth with a nail file. Avoid cutting into the corners of toes. Do not cut cuticles. If you have neuropathy (or decreased sensation in your feet) a secondary art teacher should always cut your toenails. Be Careful When Exercising Walk and exercise in comfortable shoes. Do not exercise when you have open sores on your feet. Protect Your Feet With Shoes and Socks Never go barefoot. Always protect your feet by wearing shoes or hard-soled slippers or footwear. Avoid shoes with high heels and pointed toes. Avoid shoes that expose your toes or heels (such as open-toed shoes or sandals). These types of shoes increase your risk for injury and potential infections. Try on new footwear with the type of socks you usually wear. Do not wear new shoes for more than an hour at a time. Change your socks daily. Look and feel inside your shoes before putting them on to make sure there are no foreign objects or rough areas. Avoid tight socks. Wear natural-fiber socks (cotton, wool, or a cotton-wool blend). Wear special shoes if your health care provider recommends them. Wear shoes/boots that will protect your feet from various weather conditions (cold, moisture, etc.). Make sure your shoes fit properly. If you have neuropathy (nerve damage), you may not notice that your shoes are too tight. Perform the footwear test described below. Footwear Test Use this simple test to see if your shoes fit correctly: Stand on a piece of paper. (Make sure you are standing and not sitting, because your foot changes shape when you stand.) Trace the outline of your foot. Trace the outline of your shoe. Compare the tracings: Is the shoe too narrow? Is your foot crammed into the shoe? The shoe should be at least 1/2 inch longer than your longest toe and as wide as your foot. Proper Shoe Choices The following types of shoes are best for people with diabetes Closed toes and heels Leather uppers without a seam inside At least 1/2 inch extra space at the end of your longest toe Inside of shoe should be soft with no rough areas Outer sole should be made of stiff material Shoes should be at least as wide as your feet Tips for Foot Care in Diabetes Don't wait to treat a minor foot problem if you have diabetes. Follow your health care provider's guidelines and first aid guidelines. Report foot injuries and infections to your health care provider immediately. Check water temperature with your elbow, not your foot. Do not use a heating pad on your feet. Do not cross your legs. Do not self-treat your corns, calluses, or other foot problems. Go to your health care provider or secondary art teacher to treat these conditions. documented in this encounter [facility] 07-31-2023 History of Present illness Narrative Last time saw pcp: not present in chart Initial Office Visit Subjective: This 87 year old male presents to clinic for diabetic foot check. Patient has the following complaints: right great toenail pain. Patient admits to being diabetic for 23 years now. Patient +B/T/N in feet at this time. Patient -pain in legs when walking. No other pedal complaints at this time. No change in medications or medical history since last visit. PAIN EVALUATION No data found in the last 1 encounters. Hemoglobin A1C Date Value 09/14/2020 7.6 % 03/09/2019 6.9 % 09/24/2018 6.8 % 03/10/2017 7.2 11/03/2016 7.3 % 11/02/2016 7.4 06/30/2016 7.2 % HGB A1C (no units) Date Value 09/28/2020 7.2 01/20/2020 7.1 01/23/2019 6.8 03/01/2018 6.3 PCP: Keron Maciel MD PAST MEDICAL HISTORY Diagnosis Date Atherosclerotic heart disease of [place] coronary artery without angina pectoris 12/10/2013 BPH (benign prostatic hypertrophy) with urinary retention 07/07/2014 Calculus of kidney Class 3 severe obesity due to excess calories with body mass index (BMI) of 40.0 to 44.9 in adult (HCC) Controlled type 2 diabetes mellitus with stage 3 chronic kidney disease, without long-term current use of insulin ([facility]) 03/26/2018 Diaphragmatic hernia without mention of obstruction or gangrene Diverticulitis of colon (without mention of hemorrhage)(562.11) Elevated liver function tests 03/26/2018 Esophageal reflux Essential hypertension, benign 01/28/2014 Family history of colon cancer in mother 12/22/2014 GERD (gastroesophageal reflux disease) 04/19/2010 Hyperlipidemia LDL goal < 100 04/26/2011 Hypothyroidism 08/21/2010 Lumbar disc disease with radiculopathy 10/09/2013 Morbid obesity (HCC) 04/23/2012 DANYELL (obstructive sleep apnea) Osteoarthritis of hip 02/16/2010 Other diseases of lung, not elsewhere classified PULMONARY NODULE Parkinson's disease Pure hypercholesterolemia S/P PTCA (percutaneous transluminal coronary angioplasty) Shortness of breath Snoring Unspecified asthma(493.90) Unspecified constipation Unspecified hemorrhoids without mention of complication Vitamin D deficiency 07/05/2013 Current Outpatient Medications Medication Sig predniSONE (DELTASONE) 10 mg tablet Take 4 tabs daily for 3 days, then 2 tabs daily for 3 days, then 1 tab daily for 3 days with food. albuterol HFA (PROVENTIL HFA, VENTOLIN HFA) 90 mcg/actuation inhaler Inhale 2-4 Puffs as instructed every 4 hours as needed for wheezing/shortness of breath. pantoprazole DR (PROTONIX) 40 mg tablet Take [...] Take 1 tablet by mouth once daily. Hydrochlorothiazide 12.5 mg capsule Take 1 capsule by mouth once daily. (Patient not taking: Reported on 11/25/2019 ) capsaicin (ZOSTRIX-HP) 0.075 % topical cream Apply 1 application to affected area three times daily as needed (pain). (Patient not taking: Reported on 05/13/2019 ) albuterol HFA (PROVENTIL HFA, VENTOLIN HFA) 90 mcg/actuation inhaler Inhale 2 Puffs as instructed every 4 hours as needed. (Patient not taking: Reported on 08/08/2019 ) furosemide (LASIX) 40 mg tablet Take 40 mg by mouth once daily. finasteride (PROSCAR) 5 mg tablet Take 5 mg by mouth once daily. aspirin, enteric coated (ASPIRIN, ENTERIC COATED) 81 mg EC tablet Take 81 mg by mouth once daily. metFORMIN (GLUCOPHAGE) 500 mg tablet Take 2 tablets by mouth twice daily with meals. Cholecalciferol, Vitamin D3, (VITAMIN D-3) 2,000 unit cap Take 1 tablet by mouth once daily. No current facility-administered medications for this visit. ALLERGIES Allergen Reactions Actos [Pioglitazone* abdomenal pain PAST SURGICAL HISTORY Procedure Laterality Date COLONOSCOPY FLX DX W/COLLJ SPEC WHEN PFRMD 07/30/03 Colonoscopy COLONOSCOPY FLX DX W/COLLJ SPEC WHEN PFRMD 10/28/08 COLONOSCOPY FLX DX W/COLLJ SPEC WHEN PFRMD 01/29/15 Colonoscopy ECHO 06/24/2015 [facility] - see scanned documents ESOPHAGOGASTRODUODENOSCOPY TRANSORAL DIAGNOSTIC 09/27/2006 EGD ESOPHAGOGASTRODUODENOSCOPY TRANSORAL DIAGNOSTIC 04/27/2010 EGD ESOPHAGOGASTRODUODENOSCOPY TRANSORAL DIAGNOSTIC 04/15/16 EGD ESOPHAGOGASTRODUODENOSCOPY TRANSORAL DIAGNOSTIC 08/01/2019 EGD IMPLANT MESH OPN HERNIA RPR/DEBRIDEMENT CLOSURE 03/26/07 LAPAROSCOPIC APPENDECTOMY 05/02/16 POLYSOMNOGRAM 06/2001 PULMONARY FUNCTION TEST 10/19/02 REPAIR FIRST ABDOMINAL WALL HERNIA 03/26/07 STENT PLACEMENT maker FAMILY HISTORY Problem Relation Age of Onset Cancer Father BRAIN Heart Mother Colon Cancer Mother Heart Brother Breast Cancer Sister Diabetes Sister other (testicular cancer) Son Social History Tobacco Use Smoking status: Former Packs/day: 1.00 Years: 5.00 Additional pack years: 0.00 Total pack years: 5.00 Types: Cigarettes Quit date: 10/17/1964 Years since quittin.8 Smokeless tobacco: Never Substance Use Topics Alcohol use: No Drug use: No REVIEW OF SYSTEMS GENERAL: Negative for Malaise, significant weight loss, fever RESPIRATORY: Negative for cough, wheezing and shortness of breath CARDIOVASCULAR: Negative for chest pain, leg swelling and palpitations GI: Negative for abdominal discomfort, blood in stools or black stools and change in bowel habits : Negative for dysuria, frequency and incontinence MUSCULOSKELETAL: Negative for joint pain or swelling, back pain, and muscle pain. SKIN: Negative for lesions, rash, and itching. HEMATOLOGY/LYMPHOLOGY Negative for prolonged bleeding, bruising easily, and swollen nodes. ENDOCRINE: Negative for cold or heat intolerance, polyuria, polydipsia and goiter. NEURO: negative The remainder of the review of systems is noncontributory. Objective: Patient presents to clinic ambulating in diabetic shoe Constitutional: Pt is a well developed 87 year old male who is alert, oriented, cooperative and in no apparent distress. Eyes: Following during examination. No redness or drainage. Respiratory: RR normal and nonlabored. Even breathing. No evidence of distress. Psychology: Patient is engaged during conversation. Normal affect and mood. Does not appear depressed or anxious. Vasc: DP and PT pulses are palpable bilateral. CFT is less than 5 seconds bilateral. Skin temperature is warm to warm proximal to distal bilateral. There is no edema or varicosities noted. Hair growth present. Neuro: Protective sensation is decreased to the foot and toes when tested with the 5.07 SWM bilateral. Vibratory sensation is absent at the hallux bilateral. + Significant neurological defecits. Derm: Inspection and palpation performed. Nails 1-5 b/l are painful, discolored-yellow, thick, crumbly, dystrophic and with subungal debris. Skin is dry to b/l feet. Hyperkeratosis to right heel NO ulcerations, scars, verruca or other lesions noted. Ortho: Ankle joint DF is decreased with the knee extended and decreased with knee flexed. No pain or crepitus noted. STJ, MTJ ROM are full and free of pain or crepitus. Muscle strength is 5/5 for dorsiflexors, plantarflexors, inverters, everters. Digital deformities include none. Assessment: (B35.1) Onychomycosis (primary encounter diagnosis) (M79.675) Pain in toe of left foot (M79.674) Pain in toe of right foot (L85.3) Xerosis cutis (E08.42) Diabetic polyneuropathy associated with diabetes mellitus due to underlying condition (HCC) Callus of heel Plan: 1. Patient was seen and evaluated. 2. Patient was instructed on the continued importance of diabetic foot care along with proper diet and keeping their blood sugar under control to prevent complications. Instructions given both oral and written. 3. Recommend lotion to feet daily 4. F/u in 3 months 5. Toenails 1-5 b/l debrided in length and thickness. 6. Callus to heel reduced with dremmel. Diabetic shoe ordered and patient will benefit given neurpoathy and callus Barbie Nova DPM AMB ROOMING INTAKE FLOWSHEET DATA Risk Screening Do you have concerns about personal safety or safety in the home?: No Patient presents with: Left Foot - Established Patient, Diabetic Foot Care Right Foot - Established Patient, Diabetic Foot Care Dinorah Dempsey LPN documented in this encounter [facility] 12-09-2022 Discharge summary Note Date/Time December 09, 2022 2:12pm [facility] Physical [facility] [address] [place] [address] / REHABILITATION SERVICES DISCHARGE SUMMARY MR#: [id number] Acct: [id number] Name: OLMAN SYED Rep #: [id number] : 1935 87 From: Mark Aggarwal PT, ATC Referring Dr.: Dr. Rich Padgett MD Status: REG RCR Insurance: [employer] [facility] SELF PAY INSURANCE It has been my pleasure to treat OLMAN SYED referred by Dr. Rich Padgett MD, with the diagnosis of L shoulder pain for a total of 8 visit(s). Discharge Date: Please see the following information for a summary of their discharge status. Subjective: I dont have any pain today % Improvement: 80 Objective/Function/Assessment: L shoulder pain is 0/10. Pt is I with HEP. L shoulder MMT: flex= 4, abd= 15, ER= 11, IR= 20 #. Rx goals achieved Patient Goals: Improve Mobility, Improve Function, Decrease Pain, Improve ROM Goal 1:: Decrease L shoulder pain x 50% to aid with IADL's Goal Progress: Goal Met Goal 2:: Increase L shoulder strength x 5#F throughout to aid with normal daily activities Goal Progress: Goal Met Goal 3:: I with HEP Goal Progress: Goal Met Plan: L rot cuff strengthening, scap stab ex's, UBE, and HEP If there are questions or concerns regarding this patient's physical therapy, please feel free to call me at [phone]. Thank you for the referral of thispatient. Sincerely, Mark Aggarwal, PT, ATC <Electronically signed by Mark Aggarwal PT, ATC> 12/09/22 1412 CC: Dr. Keron Maciel MD; Dr. Rich Padgett MD ~ [facility] Signed [facility] Work Phone: 1(941) 651-589106-23-2023 Discharge summary Author Kalia Hendrickson [facility] December 09, 2022 1:32pm Note Date/Time December 09, 2022 1:32 pm [facility] Physical Therapy [facility] [address] [place] [address] / REHABILITATION SERVICES DISCHARGE SUMMARY MR#: [id number] Acct: [id number] Name: OLMAN SYED Rep #: [id number] : 1935 87 From: Kalia Ellis Referring Dr.: Dr. Rich Padgett MD Status: REG RCR Insurance: [employer] [facility] SELF PAY INSURANCE It has been my pleasure to treat OLMAN SYED referred by Dr. Rich Padgett MD, with the diagnosis of Parkinson's disease, Cardiomyopathy, low backpain and abnormal gait for a total of 15 visit(s). Discharge Date: 12/09/22 Please see the following information for a summary of their discharge status. Subjective: No pain in LEs today, no pain in lumbar spine as well. Pt. reports being HEP compliant. He uses FWW in all situations. Lumbar spine Pain Intensity (Out of 10): 0 L SH Pain Intensity (Out of 10): 3 hips Pain Intensity (Out of 10): 0 % Improvement: 80 Objective/Function: ROM: Pt. has decent ROM in BLEs, tightness in B HS. MMT: Pt. has good strength in BLEs, except a slight increased weakness in his L ankleDF 4/5. Core strength fair. GAIT: pt. ambulates well and shari with FWW. Not as shari without AD. At this point I recommend that he continue to use of FWW for safety. TU.2 sec. sit to stand rep test 15 reps without use of UEs. Goal 1:: LTG: Pt. to be I with HEP. Goal Progress: Goal Met Goal 2:: LTG: Pt. to have increased BLE strength by 1/2 grade throughout. Goal Progress: Goal Met Goal 3:: LTG: Pt. to have improved TUG time to less than 15sec without AD. Goal Progress: Goal Met Goal 4:: LTG: Pt. to report no occurrences of LLE giving out on him during standing or walking. Goal Progress: Goal Met Goal 5:: LTG: Pt. complete 6 MWT without increase in symptoms. Goal Progress: Progressing Plan: Pt. to be DC from PT at this point in time. Discharge Comments: Pt. to be DC from PT at this point in time. He has exsercisefor his balance and is I with at this point in time. Pt. to be DC to HEP. If there are questions or concerns regarding this patient's physical therapy, please feel free to call me at [phone]. Thank you for the referral of thispatient. Sincerely, Kalia Hendrickson, DPT Balance/Gait/Functional tests - Balance/Special Test Scores CATSIB Score (Max score 120 seconds): 106 Lower Extremity Functional Score: 34 Quick DASH Score: 36.3625 TUG Test Time Seconds: 11.2 Tug Test: 20-30sec.=variable mobility 30 Second Chair Rise Test Seconds: 15 6 Minute Walk Test: Pt. walked for 4min 59 sec, 704 feet. Much better than previous. General fatigue as limiting factor. <Electronically signed by Kalia Hendrickson DPT> 12/09/22 1338 CC: Dr. Keron Maciel MD; Dr. Rich Padgett MD ~ [facility] Signed [facility] Work Phone: 1([phone]) 525-400210-08-2018 History of Past illness Narrative* Problem Noted Date Diagnosed Date Resolved Date Elevated liver function tests 03/26/2018 04/20/2020 Acute appendicitis with localized peritonitis 05/09/20 16 03/26/2018 Iron deficiency anemia due t o chronic blood loss 04/15/2016 04/15/2016 Gastroesophageal reflux disease 04/15/2016 04/15/2016 Special screening for malign ant neoplasms, colon 01/29/2015 01/29/2015 Sprain of lumbar region 09/01/201110/17 Unspecified vitamin D deficiency 04/09/2008 11/03/2016 Other testicular hypofunction 10/17/2007 11/03/2016 Incisional hernia without me ntion of obstruction or gangrene 02/05/2007 12/22/2014 Acute gastritis without mention of hemorrhage 09/28/1912/22/2014 Unilateral or unspecified fe moral hernia without mention of obstruction or gangrene, unilateral or unspecified 09/27/2006 12/22/2014 Abdominal pain, generalized 08/03/2006 12/22/2014 Asthma 06/28/2019 Diverticulitis of colon (wit hout mention of hemorrhage)(562.11) 12/22/2014 documented as of this encounter (statuses as of 07/31/2023) [facility] History of Past illness Narrative* Problem Noted Date Diagnosed Date Resolved Date Elevated liver function tests 03/26/2018 04/20/2020 Acute appendicitis with localized peritonitis 05/09/20 16 03/26/2018 Iron deficiency anemia due t o chronic blood loss 04/15/2016 04/15/2016 Gastroesophageal reflux disease 04/15/2016 04/15/2016 Special screening for malign ant neoplasms, colon 01/29/2015 01/29/2015 Sprain of lumbar region 09/01/201110/17 Unspecified vitamin D deficiency 04/09/2008 11/03/2016 Other testicular hypofunction 10/17/2007 11/03/2016 Incisional hernia without me ntion of obstruction or gangrene 02/05/2007 12/22/2014 Acute gastritis without mention of hemorrhage 09/28/19 07 12/22/2014 Unilateral or unspecified fe moral hernia without mention of obstruction or gangrene, unilateral or unspecified 09/27/2006 12/22/2014 Abdominal pain, generalized 08/03/2006 12/22/2014 Asthma 06/28/2019 Diverticulitis of colon (wit hout mention of hemorrhage)(562.11) 12/22/2014 documented as of this encounter (statuses as of 08/01/2023) [facility] Evaluation note* Diagnosis Onset Date Resolution Status Atherosclerotic heart diseas e of [place] coronary artery without angina pectoris chronic Essential (primary) hypertension chronic History of coronary artery stent placement June h, 2015 chronic Shortness of breath acute Body mass index (BMI) 40.0-44.9, adult chronic CKD (chronic kidney disease) stage 3, GFR 30-59 ml/min chronic Diabetes mellitus chronic Essential (primary) hypertension chronic HLD (hyperlipidemia) chronic Iron deficiency anemia chron ic DANYELL (obstructive sleep apnea) chronic 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 [facility] Work Phone: [phone]) 943-435301-13-2016 Evaluation note* Diagnosis Onset Date Resolution Status Atherosclerotic heart diseas e of [place] coronary artery without angina pectoris chronic Essential (primary) hypertension chronic History of coronary artery stent placement June chronic HLD (hyperlipidemia) chronic Cardiomyopathy acute Leg swelling acute Obesity acute Polyneuropathy acute 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 disease 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 CKD (chronic kidney disease) stage 3, GFR 30-59 ml/min chronic Diabetes mellitus chronic Essential (primary) hypertension chronic History of coronary artery stent placement June chronic HLD (hyperlipidemia) chronic DANYELL (obstructive sleep apnea) chronic Parkinson's disease chronic Cardiac arrhythmia acute Abnormality of gait and mobility chronic 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 disease 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 Mild cognitive impairment ch ronic Parkinson's disease chronic Diabetes mellitus [facility] Work Phone: Evaluation note* Diagnosis Onset Date Resolution Status B12 nutritional deficiency a cute 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 disease acut e Mild cognitive impairment ac [place] Parkinson's disease acute Polyneuropathy acute DANYELL (obstructive sleep apnea) chronic Obesity acute Polyneuropathy acute Diabetes mellitus chronic Essential (primary) hypertension chronic HLD (hyperlipidemia) chronic 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 disease acut e Mild cognitive impairment ac [place] Parkinson's disease acute Polyneuropathy acute B12 nutritional deficiency a cute 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 disease acut e Fungal skin infection acute Obesity acute Atherosclerotic heart diseas e of [place] coronary artery without angina pectoris chronic Body mass index (BMI) 40.0-44.9, adult chronic CKD (chronic kidney disease) stage 3, GFR 30-59 ml/min chronic Diabetes mellitus chronic Essential (primary) hypertension chronic HLD (hyperlipidemia) [facility] Work Phone: Evaluation note* Diagnosis Onset Date Resolution Status B12 nutritional deficiency a cute 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 disease acut e Mild cognitive impairment ac [place] Parkinson's disease acute Polyneuropathy acute DANYELL (obstructive sleep apnea) chronic Obesity acute Polyneuropathy acute Diabetes mellitus chronic Essential (primary) hypertension chronic HLD (hyperlipidemia) chronic 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 disease acut e Mild cognitive impairment ac [place] Parkinson's disease acute Polyneuropathy acute B12 nutritional deficiency a cute 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 disease acut e Fungal skin infection acute Obesity acute Atherosclerotic heart diseas e of [place] coronary artery without angina pectoris chronic Body mass index (BMI) 40.0-44.9, adult chronic CKD (chronic kidney disease) stage 3, GFR 30-59 ml/min chronic Diabetes mellitus chronic Essential (primary) hypertension chronic HLD (hyperlipidemia) chronic Atherosclerotic heart diseas e of [place] coronary artery without angina pectoris chronic Essential (primary) hypertension chronic History of coronary artery stent placement June [facility] Work Phone: Evaluation note* Diagnosis Onset Date Resolution Status 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 disease acut e Mild cognitive impairment ac [place] Parkinson's disease acute Polyneuropathy acute B12 nutritional deficiency a cute 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 disease acut e Fungal skin infection acute Obesity acute Atherosclerotic heart diseas e of [place] coronary artery without angina pectoris chronic Body mass index (BMI) 40.0-44.9, adult chronic CKD (chronic kidney disease) stage 3, GFR 30-59 ml/min chronic Diabetes mellitus chronic Essential (primary) hypertension chronic HLD (hyperlipidemia) chronic Atherosclerotic heart diseas e of [place] coronary artery without angina pectoris chronic Essential (primary) hypertension chronic History of coronary artery stent placement June [facility] Work Phone: Evaluation note* Diagnosis Onset Date Resolution Status Shortness of breath acute Body mass index (BMI) 40.0-44.9, adult chronic CKD (chronic kidney disease) stage 3, GFR 30-59 ml/min chronic Diabetes mellitus chronic Essential (primary) hypertension chronic HLD (hyperlipidemia) chronic Iron deficiency anemia chron ic DANYELL (obstructive sleep apnea) chronic 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 Essential (primary) hypertension chronic History of coronary artery stent placement June chronic HLD (hyperlipidemia) [facility] Work Phone: Evaluation note* Diagnosis Onset Date Resolution Status Obesity acute DANYELL (obstructive sleep apnea) chronic Atherosclerotic heart diseas e of [place] coronary artery without angina pectoris chronic Essential (primary) hypertension chronic History of coronary artery stent placement June chronic HLD (hyperlipidemia) [facility] Work Phone: Evaluation note* Diagnosis Onset Date Resolution Status Obesity acute DANYELL (obstructive sleep apnea) chronic Atherosclerotic heart diseas e of [place] coronary artery without angina pectoris chronic Essential (primary) hypertension chronic History of coronary artery stent placement June chronic HLD (hyperlipidemia) chronic Cardiomyopathy acute Leg swelling acute Obesity acute Polyneuropathy acute 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 disease 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 CKD (chronic kidney disease) stage 3, GFR 30-59 ml/min chronic Diabetes mellitus chronic Essential (primary) hypertension chronic History of coronary artery stent placement June chronic HLD (hyperlipidemia) chronic DANYELL (obstructive sleep apnea) chronic Parkinson's disease [facility] Work Phone: Evaluation note* Diagnosis Onychomycosis- Primary Dermatophytosis of nail Pain in toe of left foot Pain in limb Pain in toe of right foot Pain in limb Xerosis cutis Other specified disease of sebaceous glands Diabetic polyneuropathy associated with diabetes mellitus due to underlying condition ([facility]) Callus of heel Corns and callosities [facility] Pain Generalized pain [facility] Diagnosis Onset Date Resolution Status Diabetes mellitus type 2 in obese acute Atherosclerotic heart diseas e of [place] coronary artery without angina pectoris chronic Body mass index (BMI) 40.0-44.9, adult chronic CKD (chronic kidney disease) stage 3, GFR 30-59 ml/min chronic Essential (primary) hypertension chronic HLD (hyperlipidemia) chronic DANYELL (obstructive sleep apnea) chronic 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 disease 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 Mild cognitive impairment ch ronic Parkinson's disease chronic Acute bronchitis acute B12 nutritional deficiency a cute Diabetes mellitus type 2 in obese acute Obesity acute Atherosclerotic heart diseas e of [place] coronary artery without angina pectoris chronic CKD (chronic kidney disease) stage 3, GFR 30-59 ml/min chronic Essential (primary) hypertension chronic HLD (hyperlipidemia) [facility] Work Phone: Evaluation note* Diagnosis Onychomycosis- Primary Dermatophytosis of nail Pain in toe of left foot Pain in limb Pain in toe of right foot Pain in limb Diabetic polyneuropathy associated with type 2 diabetes mellitus (HCC) [facility] Diagnosis Onychomycosis- Primary Dermatophytosis of nail Pain in toe of left foot Pain in limb Pain in toe of right foot Pain in limb Diabetic polyneuropathy associated with type 2 diabetes mellitus (HCC) [facility] Diagnosis Onychomycosis- Primary Dermatophytosis of nail Pain in toe of left foot Pain in limb Pain in toe of right foot Pain in limb Diabetic polyneuropathy associated with type 2 diabetes mellitus (HCC) [facility] Diagnosis Onychomycosis- Primary Dermatophytosis of nail Pain in toe of left foot Pain in limb Pain in toe of right foot Pain in limb Diabetic polyneuropathy associated with type 2 diabetes mellitus (HCC) Venous insufficiency Unspecified venous (peripheral) insufficiency [facility] N[facility]* Diagnostic Procedure Only (Routine) - Authorized Specialty Diagnoses / Procedures Referred By Mo t Referred To Contact XR IMAGING Diagnoses Pain Procedures XR FOOT GENERAL 3V AP/LAT/OBL BILATERAL RADEX FOOT COMPLETE MINIMUM [address] [place] [address] [place] [address] Referral ID Status Reason Start Date Expiration Date Visits Requested Visits Authorized [id number] Authorized Auto-Generat ed Referral 07/12/2023 08/10/2024 1 1 [facility] Chief Complaint and Reason for Visit Chief Complaint EORDER 4 M FU 1 Y FU 4 M FU 3 M FU 6 M FU Reason for Visit B12 nutritional defi ciency 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 disease Mild cognitive impairment Parkinson's disease Polyneuropathy DANYELL (obstructive sleep apnea) Obesity Polyneuropathy Diabetes mellitus Essential (primary) hypertension HLD (hyperlipidemia) 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 disease Mild cognitive impairment Parkinson's disease Polyneuropathy B12 nutritional deficiency 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 disease Fungal skin infection Obesity Atherosclerotic heart disease of [place] coronary artery without angina pectoris Body mass index (BMI) 40.0-44.9, adult CKD (chronic kidney disease) stage 3, GFR 30-59 ml/min Diabetes mellitus Essential (primary) hypertension HLD (hyperlipidemia) Chief Complaint 4 M FU 1 Y FU 4 M FU 3 M FU 6 M FU 9 M FU Reason for Visit B12 nutritional defi ciency 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 disease Mild cognitive impairment Parkinson's disease Polyneuropathy DANYELL (obstructive sleep apnea) Obesity Polyneuropathy Diabetes mellitus Essential (primary) hypertension HLD (hyperlipidemia) 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 disease Mild cognitive impairment Parkinson's disease Polyneuropathy B12 nutritional deficiency 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 disease Fungal skin infection Obesity Atherosclerotic heart disease of [place] coronary artery without angina pectoris Body mass index (BMI) 40.0-44.9, adult CKD (chronic kidney disease) stage 3, GFR 30-59 ml/min Diabetes mellitus Essential (primary) hypertension HLD (hyperlipidemia) Atherosclerotic heart disease of [place] coronary artery without angina pectoris Essential (primary) hypertension History of coronary artery stent placement Chief Complaint 4 M FU 1 Y FU 4 M FU 3 M FU 6 M FU 9 M FU SOB ASHD HTN Reason for Visit B12 nutritional defi ciency 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 disease Mild cognitive impairment Parkinson's disease Polyneuropathy DANYELL (obstructive sleep apnea) Obesity Polyneuropathy Diabetes mellitus Essential (primary) hypertension HLD (hyperlipidemia) 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 disease Mild cognitive impairment Parkinson's disease Polyneuropathy B12 nutritional deficiency 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 disease Fungal skin infection Obesity Atherosclerotic heart disease of [place] coronary artery without angina pectoris Body mass index (BMI) 40.0-44.9, adult CKD (chronic kidney disease) stage 3, GFR 30-59 ml/min Diabetes mellitus Essential (primary) hypertension HLD (hyperlipidemia) Atherosclerotic heart disease of [place] coronary artery without angina pectoris Essential (primary) hypertension History of coronary artery stent placement Chief Complaint 3 M FU 6 M FU 9 M FU SOB ASHD HTN FALL WITH HEAD INJURY Reason for Visit 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 dise ase Mild cognitive impairment Parkinson's disease Polyneuropathy B12 nutritional deficiency 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 disease Fungal skin infection Obesity Atherosclerotic heart disease of [place] coronary artery without angina pectoris Body mass index (BMI) 40.0-44.9, adult CKD (chronic kidney disease) stage 3, GFR 30-59 ml/min Diabetes mellitus Essential (primary) hypertension HLD (hyperlipidemia) Atherosclerotic heart disease of [place] coronary artery without angina pectoris Essential (primary) hypertension History of coronary artery stent placement Chief Complaint 9 M FU SOB ASHD HTN FALL WITH HEAD INJURY STITCHES OUT 3 M FU E-ORDER Amb Documentation Reason for Visit Atherosclerotic hear t disease of [place] coronary artery without angina pectoris Essential (primary) hypertension History of coronary artery stent placement Shortness of breath Body mass index (BMI) 40.0-44.9, adult CKD (chronic kidney disease) stage 3, GFR 30-59 ml/min Diabetes mellitus Essential (primary) hypertension HLD (hyperlipidemia) Iron deficiency anemia DANYELL (obstructive sleep apnea) Right bundle branch block (RBBB) with left anterior fascicular block Chief Complaint FALL WITH HEAD INJUR Y STITCHES OUT 3 M FU E-ORDER Amb Documentation 4 M FU INT LABS Reason for Visit Shortness of breath Body mass index (BMI) 40.0-44.9, adult CKD (chronic kidney disease) stage 3, GFR 30-59 ml/min Diabetes mellitus Essential (primary) hypertension HLD (hyperlipidemia) Iron deficiency anemia DANYELL (obstructive sleep apnea) 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 Essential (primary) hypertension History of coronary artery stent placement HLD (hyperlipidemia) Chief Complaint 1 Y FU 6 M FU Reason for Visit Obesity DANYELL (obstructive sleep apnea) Atherosclerotic heart disease of [place] coronary artery without angina pectoris Essential (primary) hypertension History of coronary artery stent placement HLD (hyperlipidemia) Chief Complaint 1 Y FU 6 M FU 8 M FU E-ORDER Reason for Visit Obesity DANYELL (obstructive sleep apnea) Atherosclerotic heart disease of [place] coronary artery without angina pectoris Essential (primary) hypertension History of coronary artery stent placement HLD (hyperlipidemia) Cardiomyopathy Leg swelling Obesity Polyneuropathy 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 disease CKD (chronic kidney disease) stage 3, GFR 30-59 ml/min Diabetes mellitus Essential (primary) hypertension History of coronary artery stent placement HLD (hyperlipidemia) DANYELL (obstructive sleep apnea) Parkinson's disease Chief Complaint 6 M FU 8 M FU E-ORDER 6 M FU 6 M FU P[facility]IN[facility] RX HERE Reason for Visit Atherosclerotic hear t disease of [place] coronary artery without angina pectoris Essential (primary) hypertension History of coronary artery stent placement HLD (hyperlipidemia) Cardiomyopathy Leg swelling Obesity Polyneuropathy 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 disease CKD (chronic kidney disease) stage 3, GFR 30-59 ml/min Diabetes mellitus Essential (primary) hypertension History of coronary artery stent placement HLD (hyperlipidemia) DANYELL (obstructive sleep apnea) Parkinson's disease Cardiac arrhythmia Abnormality of gait and mobility 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 disease Mild cognitive impairment Parkinson's disease Diabetes mellitus Chief Complaint sob [facility] ER FU 6 M FU Cough 6 M FU E ORDERS Reason for Visit Diabetes mellitus ty pe 2 in obese Atherosclerotic heart disease of [place] coronary artery without angina pectoris Body mass index (BMI) 40.0-44.9, adult CKD (chronic kidney disease) stage 3, GFR 30-59 ml/min Essential (primary) hypertension HLD (hyperlipidemia) DANYELL (obstructive sleep apnea) 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 disease Mild cognitive impairment Parkinson's disease Acute bronchitis B12 nutritional deficiency Diabetes mellitus type 2 in obese Obesity Atherosclerotic heart disease of [place] coronary artery without angina pectoris CKD (chronic kidney disease) stage 3, GFR 30-59 ml/min Essential (primary) hypertension HLD (hyperlipidemia) Family History No Family History Records Found Relationship Condition Age at Onset Recorded Date/T selvin mother Coronary artery disease Unknown 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 accident (CVA) Unknown brother Coronary artery disease Unknown Myocardial infarction Unknown Diabetes mellitus Unknown Cardiac disease Unknown daughter Asthma Unknown father Malignant neoplasm Unknown sister Malignant neoplasm of breast Unknown Asthma Unknown sister Cardiomyopathy Unknown Advance Directives No Advanced Directives Records Found Advance Directive Response Recorded Date/ Time Advance Directives Yes July 13, 2021 11:49am Living Will Yes July 13 11:49am Power of Police Officer Yes July 13, 2021 11:49am Advance Directive Response Recorded Date/ Time Advance Directives No October 28 8:35am Living Will No October 28, 2021 8 :35am Power of Police Officer No October 28, 2021 8:35am Advance Directive Response Recorded Date/ Time Advance Directives Yes October 29 7:13am Living Will Yes October 29, 2021 7 :13am Power of Police Officer Yes October 29, 2021 7:13am Advance Directive Response Recorded Date/ Time Advance Directives on File Yes October 172021 7:13am Name of Medical Power of Police Officer Iris astorga- October 29, 2021 7:13am Name of Medical Power of Police Officer TERRENCE ASTORGA February 01, 2022 1:26pm Advance Directives Yes October 29 7:13am Living Will Yes February 01 1:26pm Power of Police Officer Yes February 01 022 1:26pm Advance Directive Response Recorded Date/ Time Name of Medical Power of Police Officer TERRENCE ASTORGA February 01, 2022 1:26pm Advance Directives Yes October 29 7:13am Living Will Yes February 01 1:26pm Power of Police Officer Yes February 01 022 1:26pm Advance Directive Response Recorded Date/ Time Advance Directives Yes October 29 7:13am Living Will Yes February 01 1:26pm Power of Police Officer Yes February 01 022 1:26pm Documents on File Type Date Recorded 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 Advance Directive(s) 10/30/2008 10:54 PM Documents on File Type Date Recorded 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 Advance Directive(s) 10/30/2008 10:54 PM Advance Directive Response Recorded Date/ Time Advance Directives Yes January 23, 2 023 2:13pm Living Will No July 16 4:09pm Power of Police Officer No July 16, 2023 4:09pm Summary Purpose Additional Source Comments Goals (unrecognized section and content) Goals may be documented in a n alternate sectionGoals may be documented in an alternate sectionGoals may be documented in an alternate sectionGoals may be documented in an alternate sectionGoals may be documented in an alternate sectionGoals may be documented in an alternate sectionGoals may be documented in an alternate sectionGoals may be documented in an alternate sectionGoals may be documented in an alternate sectionGoals may be documented in an alternate section Care Teams (unrecognized sec tion and content) Team Status: Active Member Role Status Dates Dr. Soham Jones III, MD Family Provider Active Dr. Keron Maciel MD Primary Care Provider Active Team Status: Inactive Member Role Status Dates Dr. Keron Maciel MD Primary Care Provider, Referri ng Provider Active Lela Sherman PHOTOCOMPOSING KEYBOARD OPERATOR, PHOTOCOMPOSING KEYBOARD OPERATOR-C Attending Provider Active Team Status: Inactive Member Role Status Dates Dr. Keron Maciel MD Primary Care Provider, Referri ng Provider Active Audelia Espinoza PA, PA Attending Provider Active Team Status: Inactive Member Role Status Dates Dr. eKron Maciel MD Primary Care Provider Active Dr. Jewel Carmona MD Attending Provider, Referring Pr ovider Active Team Status: Inactive Member Role Status Dates Dr. Keron Maciel MD Primary Care Provider, Attendi ng Provider Active Team Status: Inactive Member Role Status Dates Dr. Keron Maciel MD Primary Care Pro vider, Attending Provider, Referring Provider Active Team Status: Active Member Role Status Dates Dr. Keron Maciel MD Primary Care Provider Active Dr. Jewel Carmona MD Attending Provider, Referring Pr ovider Active Team Status: Inactive Member Role Status Dates Dr. Keron Maciel MD Primary Care Provider, Referri ng Provider Active Dr. Rich Padgett MD Attending Provider Active Team Status: Inactive Member Role Status Dates Dr. Keron Maciel MD Primary Care Provider, Referri ng Provider Active Dr. Austin Mora MD Attending Provider Active Team Status: Inactive Member Role Status Dates Dr. Keron Maciel MD Primary Care Provider Active Dr. Rich Padgett MD Attending Provider, Referring Provider Active Orthotic And Prosthetic Technician Relationship Specialty Start Date End Date Keron Maciel MD [address] [place] [address] PCP - General Internal Medicine 06/09/21 Orthotic And Prosthetic Technician Relationship Specialty Start Date End Date Keron Maciel MD [address] [place] [address] PCP - General Internal Medicine 06/09/21 Team Status: Inactive Member Role Status Dates Dr. Keron Maciel MD Primary Care Provider, Referri ng Provider Active Bhanu PICKARD, PA Attending Provider Active Team Status: Inactive Member Role Status Dates Dr. Keron Maciel MD Primary Care Provider Active Dr. Saurabh Porter DO Attending Provider, [place] Active Orthotic And Prosthetic Technician Relationship Specialty Start Date End Date Keron Maciel MD [address] [place] [address] PCP - General Internal Medicine 06/09/21 Orthotic And Prosthetic Technician Relationship Specialty Start Date End Date Keron Maciel MD [address] [place] [address] PCP - General Internal Medicine 06/09/21 Orthotic And Prosthetic Technician Relationship Specialty Start Date End Date Keron Maciel MD [address] [place] [address] PCP - General Internal Medicine 06/09/21 Orthotic And Prosthetic Technician Relationship Specialty Start Date End Date Keron Maciel MD [address] [place] [address] PCP - General Internal Medicine 06/09/21 Source Comments (unrecognize d section and content) In the event this informatio n is protected by the Federal Confidentiality of Alcohol and Drug Abuse Patient Records regulations: The Federal rules restrict any use of the information to criminally investigate or prosecute any alcohol or drug abuse patient.[facility] the event this information is protected by the Federal Confidentiality of Alcohol and Drug Abuse Patient Records regulations: The Federal rules restrict any use of the information to criminally investigate or prosecute any alcohol or drug abuse patient.[facility] the event this information is protected by the Federal Confidentiality of Alcohol and Drug Abuse Patient Records regulations: The Federal rules restrict any use of the information to criminally investigate or prosecute any alcohol or drug abuse patient.[facility] the event this information is protected by the Federal Confidentiality of Alcohol and Drug Abuse Patient Records regulations: The Federal rules restrict any use of the information to criminally investigate or prosecute any alcohol or drug abuse patient.[facility] the event this information is protected by the Federal Confidentiality of Alcohol and Drug Abuse Patient Records regulations: The Federal rules restrict any use of the information to criminally investigate or prosecute any alcohol or drug abuse patient.[facility] Hospital[facility] the event this information is protected by the Federal Confidentiality of Alcohol and Drug Abuse Patient Records regulations: The Federal rules restrict any use of the information to criminally investigate or prosecute any alcohol or drug abuse patient.[facility] Reason for Visit (unrecogniz ed section and content) Reason Comments Established Patient Diabetic Foot Care Reason Comments Established Patient Follow Up Diabetic Foot Check Reason Comments Established Patient Follow Up Diabetic Foot Care (unrecognized sect ion and content) No Status Records FoundNo Status Records Found INFORMATION SOURCE (unrecogn ized section and content) DATE CREATED AUTHOR 08/03/2024 [facility] DATE CREATED AUTHOR AUTHOR'S ANABEL RAMIREZ 09/08/2024 [facility] FOR RECORDS PERTAINING TO PATIENTS WHO ARE [...] BE BASED ON THE PRIMARY CLINICAL RECORDS. [employer] [facility]. provides no warranty or guarantee of the accuracy or completeness of information in this document.
[2024-11-19 23:17] LABS: Absolute Lymphocyte Count 1.46 X10^3/uL (0.83-4.51); Absolute Neutrophil Count 4.8 X10^3/uL (2.0-7.7); Basophil# 0.07 X10^3/uL; Eosinophil# 0.15 X10^3/uL; Eosinophils% 2.1 % (0-5); Hematocrit 40.4 % (40-54); Hemoglobin 13.4 g/dL (13.0-16.5); Lymphocyte # 1.46 X10^3/ul (0.83-4.51); Mean Corp Hgb Conc 33.2 g/dL (32-36); Mean Corpuscular Hgb 32.4 pg (27.0-32.0); Mean Corpuscular Volume 97.6 fL (80-94); Mean Platelet Vol. 8.8 fl (6.2-12.0); Monocyte# 0.69 X10^3/uL; Monocyte% 9.5 % (0-10); NRBC Flagged by Analyzer 0 % (0-5); Neutrophil # 4.76 X10^3/uL (2.7-7.7); Neutrophil % 65.1 % (47-70); Platelet Count 233 K/mm3 (150-450); RBC Distribution Width CV 14.6 % (11.6-14.6); RBC Distribution Width SD 52.4 fl (35.1-43.9); Red Blood Count 4.14 M/mm3 (4.6-6.2); White Blood Count 7.3 K/mm3 (4.4-11.0)
--- NOTE | 2024-11-19 23:20 | RAD_ITS ---
PROCEDURE: CHEST PA AND LATERAL 11/19/2024 REASON FOR EXAM: DYSPNEA TECHNIQUE: Frontal and lateral views of the chest. COMPARISON: 07/16/2023. FINDINGS: Prior sternotomy. The heart is enlarged. Pulmonary vascular congestion. No pleural effusion or pneumothorax. Partially visualized lumbar fixation. RAD/Chest PA and Lateral IMPRESSION: Pulmonary vascular congestion in the setting of cardiomegaly. Reading Location: [place] [address]
--- NOTE | 2024-11-19 23:29 | EX.ED.DYSGE1 ---
HPI History of Present Illness Chief Complaint: Shortness of Breath Informant: patient and spouse/S.O. Narrative Narrative: Patient is 89-year-old male with past medical history of hypertension hyperlipidemia insulin-dependent diabetes and Parkinson's disease. Patient states for the last 2 to 3 days he has had feeling of generalized weakness/fatigue. He states he has not noticed fevers chills nausea vomiting diarrhea or dysuria. He states has been no known sick contact. He reports there has been no chest pain. He states that he may have noticed slight shortness of breath but ultimately he just feels rundown tired and fatigued and without any obvious reason for it or improvement of symptoms he presents for evaluation. 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 Obesity History of CVA (cerebrovascular accident) Stroke/cerebrovascular accident Body mass index (BMI) 40.0-44.9, adult GERD (gastroesophageal reflux disease) BPH (benign prostatic hyperplasia) Hypothyroidism Osteoarthritis CKD (chronic kidney disease) stage 3, GFR 30-59 ml/min Debility Iron deficiency anemia Syncope and collapse Right bundle branch block (RBBB) with left anterior fascicular block Premature ventricular contractions Essential (primary) hypertension Vocal cord dysfunction DANYELL (obstructive sleep apnea) Hiatal hernia BMI 40.0-44.9, adult Dyspnea Cough Shortness of breath Obesity Upper respiratory infection Right flank pain Anemia Atherosclerotic heart disease of [place] coronary artery without angina pectoris 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 Palpitations Nonrheumatic tricuspid (valve) insufficiency HLD (hyperlipidemia) Chest pain Appendicitis Benign prostatic hypertrophy GERD (gastroesophageal reflux disease) Nephrolithiasis Diabetes mellitus type 2 in obese Home Medications ?Medication ?Instructions ?Recorded ?Last Taken ?Type cholecalciferol (vitamin D3) 125 5,000 unit PO DAILY vitamin 06/29/15 02/10/20 History mcg (5,000 unit) capsule finasteride 5 mg tablet 5 mg PO DAILY prostate 06/29/15 10/29/21 History aspirin 81 mg tablet,delayed 81 mg PO DAILY heart health 07/24/15 10/29/21 History release acetaminophen 500 mg tablet 1,000 mg (2 x 500 mg) PO Q6H PRN 02/19/20 Unknown Rx PRN Pain Score 1-3/10 Elizabeth Stevensonard #1 ea 10/14/20 Unknown Rx vitamins A,C,O-oqyp-ebkvrm 2,148 1 tab PO BID 12/17/20 Unknown History mcg-113 mg-45 mg-17.4 mg tablet (PreserVision AREDS) pen needle, diabetic 32 gauge x #100 ea 12/25/20 Unknown Rx 1/4 Compression stockings (04-07) #2 ea 01/04/24 Unknown Rx Left AFO #1 ea 01/04/24 Unknown Rx levothyroxine 50 mcg tablet 50 mcg PO DAILY thyroid #90 tabs 02/01/24 Unknown Rx escitalopram oxalate 10 mg tablet 10 mg PO DAILY #90 tabs 03/05/24 Unknown Rx furosemide 40 mg tablet 40 mg PO DAILY #90 TABLETS 03/05/24 Unknown Rx pantoprazole 40 mg tablet,delayed See Rx Instructions .Route 03/05/24 Unknown Rx release .COMPLEX #90 tabs ranolazine 500 mg tablet,extended 500 mg PO BID #180 tabs 03/12/24 Unknown Rx release,12 hr metformin 500 mg tablet 500 mg PO BIDCM diabetes #180 tabs 03/19/24 Unknown Rx isosorbide mononitrate 30 mg 30 mg PO DAILY #90 TABLETS 04/01/24 Unknown Rx tablet,extended release 24 hr ascorbic acid (vitamin C) 1,000 mg 1 g PO DAILY 06/15/24 Unknown History tablet (C-1000) cyanocobalamin (vitamin B-12) 1,000 mcg PO DAILY 06/15/24 Unknown History 1,000 mcg tablet (Vitamin B-12) ferrous sulfate 325 mg (65 mg 325 mg PO DAILY 06/15/24 Unknown History iron) tablet (Feosol) folic acid 1 mg tablet 1 mg PO DAILY #30 tabs 06/15/24 Unknown Rx hydrocodone-acetaminophen 5-325mg 0.5 - 1 tab PO BID PRN PRN pain 06/15/24 Unknown History 5mg-325mg zinc acetate 50 mg (zinc) capsule 50 mg PO DAILY 06/15/24 Unknown History insulin human U-100 NPH-regulr See Rx Instructions subcut BID 06/24/24 Unknown History 70-30 mix 100 unit/mL subcutaneous susp (Humulin 70/30 U-100 Insulin) pravastatin 20 mg tablet 20 mg PO DAILY cholesterol #90 tabs 07/23/24 Unknown Rx carbidopa 25 mg-levodopa 100 mg 2 tab PO TID #180 tabs 08/01/24 Unknown Rx tablet (Sinemet) amlodipine 5 mg tablet 5 mg PO DAILY BP #90 tabs 09/27/24 Unknown Rx trazodone 50 mg tablet 50 mg PO QHS PRN PRN insomnia #60 10/03/24 Unknown Rx tabs fludrocortisone 0.1 mg tablet See Rx Instructions PO .COMPLEX 10/23/24 Unknown Rx #28 tabs clopidogrel 75 mg tablet 75 mg PO DAILY for cholesterol #90 11/08/24 Unknown Rx TABLETS hydrocodone 7.5 mg-acetaminophen 1 tab PO TID PRN PRN pain 11/19/24 Unknown History 325 mg tablet cephalexin 500 mg capsule 500 mg PO TID 7 days #21 caps 11/20/24 Unknown Rx Allergy/AdvReac Type Severity Reaction Status Date / Time lisinopril Allergy Mild Cough Verified 11/19/24 22:48 naproxen (From Aleve) Allergy HIVES Verified 11/19/24 22:48 losartan AdvReac Intermediate Jitters Verified 11/19/24 22:48 metoprolol AdvReac Intermediate Jitters Verified 11/19/24 22:48 pioglitazone HCl (From Actos) AdvReac Mild Upset Verified 11/19/24 22:48 Stomach Family History Mother CAD (coronary artery disease) CVA (cerebral vascular accident) Brother CAD (coronary artery disease) Myocardial infarction Diabetes Heart disease Daughter Asthma Father Cancer bone cancer Sister Breast cancer Asthma Diabetes Heart disease Sister Cardiomyopathy Surgical History History of right and left heart catheterization (07/02/18) History of coronary artery stent placement (07/01/15) History of left heart catheterization (11/01/21) History of lymph node biopsy History of appendectomy History of back surgery Social History household members: spouse housing: house Smoking Status: Former smoker pack-years: 2 how long ago did patient quit smokin+ years ago alcohol intake: former substance use type: does not use caffeine: Yes Type: coffee Number of servings: 2 what type of physical activity do you participate in: none seatbelt use: always do you feel safe at home: Yes ROS ROS ED Constitutional Constitutional ED: Reports other Details: Positive generalized fatigue/weakness ; Denies chills or fever(s) Eyes Eyes: Denies change in vision ENT ENT ED: Denies rhinorrhea or sore throat Cardiovascular Cardiovascular: Denies chest pain, palpitations or racing heartbeat Respiratory/Chest Respiratory/Chest: Reports dyspnea; Denies cough or dyspnea on exertion Gastrointestinal Gastrointestinal: Denies abdominal pain, diarrhea, melena, nausea or vomiting Genitourinary Genitourinary ED: Denies dysuria or hematuria Musculoskeletal Musculoskeletal: Denies myalgias Integumentary Denies rash Neurologic Neurologic: Reports weakness; Denies headache(s) Hematologic/Lymphatic Hematologic/Lymphatic: Denies easy bleeding or easy bruising Allergic/Immunologic Allergic/Immunologic ED: Denies mouth swelling or tongue swelling EXAM Physical Exam Const Vital Signs: 11/19/24 22:48 11/19/24 22:50 11/19/24 23:02 Temperature 97.6 F L 97.6 F L Temperature Source Oral Oral Pulse Rate 80 80 Respiratory Rate 26 H 26 H Respiratory Effort Short of Breath Respiratory Pattern Tachypnea Blood Pressure 183/97 H 183/97 H Blood Pressure Mean 125 125 Pulse Ox 95 95 Oxygen Delivery Method Room Air Room Air Room Air 11/19/24 23:50 Temperature 97.6 F L Temperature Source Oral Pulse Rate 67 Respiratory Rate 22 H Respiratory Effort Respiratory Pattern Blood Pressure 165/81 H Blood Pressure Mean 109 Pulse Ox 94 Oxygen Delivery Method Room Air Positive well nourished, well developed and obese General Appearance ED: well developed; Negative for pallor Nutritional Appearance: obese HEENT Reports dry mucous membranes HEENT Narrative: Mucous membranes are mildly dry and tacky No tongue or lip swelling no oral lesions no airway edema or compromise; no secondary findings in the posterior pharynx to suggest infection Mouth ED: Yes dry mucous membranes Mouth: dry mucous membranes Eyes PERRL and EOMs intact bilaterally General Eye ED: Negative for pale conjunctiva or scleral icterus Neck supple and no JVD Neck Narrative: No nuchal rigidity or meningeal signs Resp normal respiratory effort and clear to auscultation bilaterally Resp Narrative: No nasal flaring retractions tachypnea or accessory muscle use Cardio regular rate and regular rhythm Rate: other Other Details: Radial and carotid pulses are equal and symmetric GI normal to inspection, nondistended, normoactive bowel sounds, non-tender, non-distended and no masses GI Narrative: No voluntary guarding or rigidity or pulsatile mass Auscultation: normoactive bowel sounds Palpation: soft Extremity Extremity Narrative: +1 pitting edema to the bilateral lower extremities is equal and symmetric; this is chronic per patient Negative Homans' sign bilaterally Neuro oriented x3, CN's II-XII intact bilaterally and no sensory deficits noted Sensorium / Orientation: alert Psych mental status grossly normal Skin no rashes or lesions noted and No skin turgor normal Skin Narrative: Skin turgor is slightly increased General Skin Exam: Negative for jaundice or pallor MDM MDM MDM Narrative Medical decision making narrative: Patient arrived to the ER with stable vitals. He reported feeling generalized fatigue/weakness without obvious symptoms for it such as cough fever vomiting diarrhea or dysuria. In order to check for potential causes such as acute blood loss anemia pneumonia thyroid disorder acute kidney injury or UTI basic blood work chest x-ray and urine sample were obtained. Chest x-ray showed no acute infiltrate. Kidney function is elevated at 1.77 but chart review reveals this is better than his previous with baseline typically above 2. TSH is normal going against thyroid dysfunction and he does not have any clinically significant electrolyte abnormalities such as severe hypokalemia or hypomagnesemia. The patient's urine does show changes consistent with infection with 50-100 white blood cells +2 bacteria and no signs of contamination. The urine was sent for culture and patient was started on Rocephin. On reevaluation the patient is resting comfortably and vitals remained stable. I discussed with patient potential admission based on his generalized fatigue/weakness. He states that as he now knows the cause of his symptoms that he feels that he is capable of caring for himself at home. He does not meet sepsis criteria nor does he have signs of ASIA and since he does not have those physical changes and he request to try initial treatment at home I will comply and he will be placed on Keflex and is otherwise safe for discharge. History & Record Review Discussion w/independent historian: Patient and Significant other Lab Data Attestation: I reviewed the patient's lab results. Labs: Laboratory Results - last 24 hr 11/19/24 11/19/24 23:10 23:41 WBC 7.3 RBC 4.14 L Hgb 13.4 Hct 40.4 MCV 97.6 H MCH 32.4 H MCHC 33.2 RDW Std Deviation 52.4 H RDW Coeff of Perla 14.6 Plt Count 233 MPV 8.8 Immature Gran % (Auto) 2.300 H Neut % (Auto) 65.1 Lymph % (Auto) 20.0 [place] % (Auto) 9.5 Eos % (Auto) 2.1 Baso % (Auto) 1.0 Absolute Neuts (auto) 4.8 Absolute Lymphs (auto) 1.46 Nucleated RBC % 0 Sodium 138 Potassium 4.9 Chloride 97 L Carbon Dioxide 27.2 Anion Gap 13 BUN 26 H Creatinine 1.77 H Estim Creat Clear Calc 30.88 L Est GFR (MDRD) Non-Af 37 L BUN/Creatinine Ratio 14.4 Glucose 102 H Calcium 10.0 Magnesium 2.1 NT pro BNP II 521 TSH 1.790 Urine Color Yellow Urine Clarity Sl. Cloudy Urine pH 6.0 Ur Specific [place] 1.015 Urine Protein 30 H Urine Glucose (UA) Normal Urine Ketones Negative Urine Occult Blood 25 H Urine Nitrite Negative Urine Bilirubin Negative Urine Urobilinogen Normal Ur Leukocyte Esterase 500 H Urine RBC 0 SEEN Urine WBC 50-100 SEEN Ur Squamous Epith Cells 0 SEEN Urine Bacteria 2+ Urine Mucus 0 SEEN Radiography Diagnostic Testing: Clinical Impression(s) from Imaging Studies Chest X-Ray 11/19/24 23:20 IMPRESSION: Pulmonary vascular congestion in the setting of cardiomegaly. Reading Location: [place] [id number] Chest x-ray as interpreted by the emergency medicine physician reveals mild pulmonary vascular congestion without acute infiltrate pneumothorax or pleural effusion Discharge Plan Triage Chief Complaint: Shortness of Breath ED Provider: Helio Corrales Dx/Rx/DC Orders Clinical Impression: UTI (urinary tract infection), Generalized weakness, Essential (primary) hypertension, CKD (chronic kidney disease) stage 3, GFR 30-59 ml/min, Hypothyroidism, Diabetes mellitus type 2, insulin dependent Instructions: Urinary Tract Infections in Men, ED Weakness Uncertain Cause Prescriptions: New cephalexin 500 mg capsule 500 mg PO TID 7 Days Qty: 21 0RF No Action PreserVision AREDS 7,160 unit- 113 mg-100 unit tablet 1 tab PO BID Rx Instructions: administer with AM and PM meals (DME) Left AFO See Rx Instructions .Route .MEDSUPPLY Qty: 1 0RF Rx Instructions: As directed (DME) Compression stockings (10-20) See Rx Instructions .Route .MEDSUPPLY Qty: 2 0RF Rx Instructions: As directed carbidopa-levodopa [Sinemet] 25-100 mg tablet 2 tab PO TID Qty: 180 6RF Humulin 70/30 U-100 Insulin 100 unit/mL (70-30) suspension See Rx Instructions subcut BID Rx Instructions: subcutaneously twice a day; 28 units each AM, and 20 units each PM. cholecalciferol (vitamin D3) 5,000 UNIT capsule 5,000 unit PO DAILY Patient Comments: SUPPLIMENT finasteride 5 MG tablet 5 mg PO DAILY Patient Comments: PROSTATE aspirin 81 MG tablet,delayed release (DR/EC) 81 mg PO DAILY acetaminophen 500 MG tablet 1,000 mg PO Q6H PRN PRN (Reason: Pain Score 1-3/10) 0RF hydrocodone-acetaminophen 5-325 mg tablet 0.5 - 1 tab PO BID PRN PRN (Reason: pain) zinc acetate 50 mg (zinc) capsule 50 mg PO DAILY ferrous sulfate [Feosol] 325 mg (65 mg iron) tablet 325 mg PO DAILY cyanocobalamin (vitamin B-12) [Vitamin B-12] 1,000 mcg tablet 1,000 mcg PO DAILY ascorbic acid (vitamin C) [C-1000] 1,000 mg tablet 1 g PO DAILY folic acid 1 mg tablet 1 mg PO DAILY Qty: 30 0RF hydrocodone-acetaminophen 7.5-325 mg tablet 1 tab PO TID PRN PRN (Reason: pain) (DME) Elizabeth Stevensonard See Rx Instructions .Route .MEDSUPPLY Qty: 1 0RF Rx Instructions: difficulty walking short distance. expires in 5 years (DME) pen needle, diabetic 32 gauge x 1/4 needle See Rx Instructions .ROUTE .MEDSUPPLY Qty: 100 2RF Rx Instructions: As directed levothyroxine 50 mcg tablet 50 mcg PO DAILY Qty: 90 3RF furosemide 40 mg tablet 40 mg PO DAILY Qty: 90 3RF escitalopram oxalate 10 mg tablet 10 mg PO DAILY Qty: 90 3RF Rx Instructions: Take 1/2 tablet for 4 days then increase to 1 tablet. pantoprazole 40 mg tablet,delayed release (DR/EC) See Rx Instructions .ROUTE .COMPLEX Qty: 90 3RF Dose Instruction: TAKE 1 TABLET BY MOUTH ONCE DAILY FOR REFLUX Rx Instructions: TAKE 1 TABLET BY MOUTH ONCE DAILY FOR REFLUX ranolazine 500 mg tablet extended release 12 hr 500 mg PO BID Qty: 180 3RF metformin 500 mg tablet 500 mg PO BIDCM Qty: 180 3RF isosorbide mononitrate 30 mg tablet extended release 24 hr 30 mg PO DAILY Qty: 90 3RF pravastatin 20 mg tablet 20 mg PO DAILY Qty: 90 3RF amlodipine 5 mg tablet 5 mg PO DAILY Qty: 90 3RF trazodone 50 mg tablet 50 mg PO QHS PRN PRN (Reason: insomnia) Qty: 60 1RF fludrocortisone 0.1 mg tablet See Rx Instructions PO .COMPLEX Qty: 28 2RF Rx Instructions: Take 1 tablet orally in the morning 6 days/week (Monday, Monday, Monday, , Monday, Monday) clopidogrel 75 mg tablet 75 mg PO DAILY Qty: 90 3RF Primary Care Provider: Marie Maciel Referrals: Marie Maciel MD [Primary Care Provider] - Activity Restrictions/Additional Instructions: Your workup today showed changes consistent with a urinary tract infection however there are no signs of systemic infection/sepsis. Take the antibiotic as directed to resolve the infection. It will typically take 2 to 3 days for the antibiotic to take effect. If you develop a fever or have worsening of symptoms or any further concerns please return to the ER for repeat evaluation. Print Language: Czech Disposition Disposition: Home, Self Care
[2024-11-19 23:45] LABS: Mucous, Urine 0 SEEN /hpf (<or=2+); Red Blood Cells-Urine 0 SEEN /hpf (0-5); Squamous Epithelial Cells - UA 0 SEEN /hpf (0-5)
[2024-11-19 23:48] LABS: Color, Urine Yellow (Yellow); Glucose, Dipstick Normal (Normal); Ketone-Dipstick Negative (Negative); Leukocyte Esterase-Dipstick 500 /ul (Negative); Nitrite-Dipstick Negative (Negative); Occult Blood-Urine 25 /ul (Negative); Protein-Dipstick 30 mg/dl (Negative); Specific Gravity, Urine 1.015 (1.002-1.030); Urine Bilirubin Dipstick Negative (Negative); Urine Clarity Sl. Cloudy (Clear); Urine Urobilinogen Normal (Normal)
[2024-11-19 23:50] VITALS: BP 165/81; PULSE 67; RESP 22; TEMP 36.4; O2SAT 94
[2024-11-20] LABS: Bacteria 2+ /hpf (None Seen); White Blood Cells 50-100 SEEN /hpf (0-5)
[2024-11-20 00:01] LABS: Anion Gap 13 (5-15); BUN 26 mg/dL (4-19); BUN/Creat Ratio 14.4 RATIO (10-20); Carbon Dioxide 27.2 mmol/L (21.0-32.0); Chloride 97 mmol/L (98-108); Creatinine, Serum 1.77 mg/dL (0.70-1.20); EST Glomerular Filtration Rate 37 (>60); Estimated Creatinine Clearance 30.88 ml/min (50-250); Glucose 102 mg/dL (70-99); Magnesium 2.1 mg/dL (1.5-2.2); Potassium 4.9 mmol/L (3.3-5.1); Pro- Brain NATRIURETIC PEPTIDE 521 pg/mL (<=1800); Sodium Level 138 mmol/L (133-145)
[2024-11-20] MEDS: Ceftriaxone 1 GM/50 ML BAG IV (00:22)
[2024-11-20 00:47] VITALS: BP 149/77; PULSE 63; RESP 20; O2SAT 91
[2024-11-20 00:56] VITALS: BP 149/7; PULSE 66; RESP 20; TEMP 36.4; O2SAT 91
== END 2024-11-20 01:12 | disposition home or self-care (01) ==
PROVIDERS: Emergency Provider Emergency Medicine; PCP Internal Medicine; Visit Provider Emergency Medicine
DX: R06.02 Shortness of breath (principal); E11.22 Type 2 diabetes mellitus with diabetic chronic kidney disease; Z79.4 Long term (current) use of insulin; N18.30 Chronic kidney disease, stage 3 unspecified; N39.0 Urinary tract infection, site not specified; I25.10 Atherosclerotic heart disease of native coronary artery without angina pectoris; E03.9 Hypothyroidism, unspecified; R53.1 Weakness; E78.5 Hyperlipidemia, unspecified; Z87.891 Personal history of nicotine dependence; I12.9 Hypertensive chronic kidney disease with stage 1 through stage 4 chronic kidney disease, or unspecified chronic kidney disease; Z86.73 Personal history of transient ischemic attack (TIA), and cerebral infarction without residual deficits; N40.0 Benign prostatic hyperplasia without lower urinary tract symptoms; Z79.899 Other long term (current) drug therapy; Z79.890 Hormone replacement therapy; K21.9 Gastro-esophageal reflux disease without esophagitis; Z79.84 Long term (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 of oral hypoglycemic drugs; Z79.02 Long term (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 of antithrombotics/antiplatelets; Z95.5 Presence of coronary angioplasty implant and graft; Z90.49 Acquired absence of other specified parts of digestive tract
CPT/HCPCS: 71046; 80048; 81001; 83735; 83880; 84443; 85025; 87077; 87086; 87088; 87186; 87631; 93005; 96361; 96365; 99283; A4216

== ENCOUNTER → 2024-11-25 | Outpatient (CLI) | payer MEDICARE, SELFPAY ==
--- NOTE | 2024-11-25 12:41 | RAD_ITS ---
PROCEDURE: CHEST PA AND LATERAL 11/25/2024 REASON FOR EXAM: DYSPNEA ON EXERTION TECHNIQUE: Frontal and lateral views of the chest. COMPARISON: November 19, 2024 FINDINGS: Sternotomy wires and vascular markers are noted. There is an 8 cm hiatal hernia, similar to the prior. There is infiltrate or atelectasis in the left mid lung and lingular segment which obscures the left heart border, similar to the prior. There is no pneumothorax or effusion. There is no acute bony abnormality. Aortic calcifications are visible. RAD/Chest PA and Lateral IMPRESSION: There is infiltrate or atelectasis in the left mid lung and lingular segment wh ich obscures the left heart border, similar to the prior. Reading Location: [facility]
[2024-11-25 15:21] LABS: Absolute Lymphocyte Count 0.98 X10^3/uL (0.83-4.51); Absolute Neutrophil Count 4.3 X10^3/uL (2.0-7.7); Basophil# 0.04 X10^3/uL; Basophil% 0.6 % (0-1); Eosinophil# 0.12 X10^3/uL; Eosinophils% 1.9 % (0-5); Hematocrit 39.6 % (40-54); Hemoglobin 13.5 g/dL (13.0-16.5); Lymphocyte # 0.98 X10^3/ul (0.83-4.51); Lymphocyte % 15.9 % (19-41); Mean Corp Hgb Conc 34.1 g/dL (32-36); Mean Corpuscular Hgb 33.4 pg (27.0-32.0); Mean Platelet Vol. 9.6 fl (6.2-12.0); Monocyte% 9.7 % (0-10); NRBC Flagged by Analyzer 0 % (0-5); Neutrophil # 4.31 X10^3/uL (2.7-7.7); Neutrophil % 69.8 % (47-70); Platelet Count 230 K/mm3 (150-450); RBC Distribution Width CV 14.6 % (11.6-14.6); RBC Distribution Width SD 53.1 fl (35.1-43.9); Red Blood Count 4.04 M/mm3 (4.6-6.2); White Blood Count 6.2 K/mm3 (4.4-11.0)
[2024-11-25 15:55] LABS: Anion Gap 14 (5-15); BUN 22 mg/dL (4-19); BUN/Creat Ratio 13.8 RATIO (10-20); Calcium,Total 10.1 mg/dL (7.6-11.0); Carbon Dioxide 24.3 mmol/L (21.0-32.0); Chloride 101 mmol/L (98-108); EST Glomerular Filtration Rate 41 (>60); Glucose 202 mg/dL (70-99); Potassium 4.6 mmol/L (3.3-5.1); Pro- Brain NATRIURETIC PEPTIDE 502 pg/mL (<=1800); Sodium Level 140 mmol/L (133-145)
== END | disposition home or self-care (01) ==
LOC: MTLAB 12:35
PROVIDERS: PCP Internal Medicine; Referring Provider Internal Medicine; Visit Provider Internal Medicine
DX: R09.89 Other specified symptoms and signs involving the circulatory and respiratory systems (principal); R06.09 Other forms of dyspnea; R50.9 Fever, unspecified; R53.1 Weakness
CPT/HCPCS: 36415; 71046; 80048; 83880; 85025

== ENCOUNTER → 2024-12-09 | Outpatient (CLI) | payer MEDICARE, SELFPAY ==
--- NOTE | 2024-12-09 15:37 | RAD_ITS ---
PROCEDURE: CHEST PA AND LATERAL 12/09/2024 REASON FOR EXAM: PNEUMONIA/SEE 11/25/24 FILM TECHNIQUE: CHEST PA AND LATERAL COMPARISON: 11/25/2024. FINDINGS: Unchanged retrocardiac hiatal hernia. Increased bilateral basilar atelectatic changes/infiltrates. Unremarkable median sternotomy wires. Unchanged chronic deformities of the right ribs. There is no demonstrated pleural abnormality. Normal heart and pericardium. Normal mediastinum and connie. Normal visualized pulmonary arteries. Normal visualized aortic arch and descending thoracic aorta. Normal visualized thoracic spine. Normal clavicles, and shoulders. There is no demonstrated abnormality of the visualized soft tissue structures of the upper abdomen. RAD/Chest PA and Lateral IMPRESSION: Unchanged retrocardiac hiatal hernia. Increased bilateral basilar atelectatic changes/infiltrates. Unremarkable median sternotomy wires. Unchanged chronic deformities of the right ribs. [facility]
== END | disposition home or self-care (01) ==
LOC: RAD 15:26
PROVIDERS: PCP Internal Medicine; Referring Provider Internal Medicine; Visit Provider Internal Medicine
DX: J18.9 Pneumonia, unspecified organism (principal)
CPT/HCPCS: 71046

== ENCOUNTER 2024-12-21 15:35 | Emergency (ER) | payer MEDICARE, SELFPAY ==
[2024-12-21] VITALS (7 sets, daily range): BP systolic 128–183; BP diastolic 78–103; PULSE 64–87; RESP 18–24; TEMP 36.6–36.7; O2SAT 94–98; BMI 40.8
[2024-12-21 17:24] LABS: Hematocrit 40.5 % (40-54); Hemoglobin 13.9 g/dL (13.0-16.5); Immature Granulocytes Count 0.040 X10^3/uL (0.0-0.0); Mean Corp Hgb Conc 34.3 g/dL (32-36); Mean Corpuscular Volume 96.7 fL (80-94); Mean Platelet Vol. 9.1 fl (6.2-12.0); NRBC Flagged by Analyzer 0 % (0-5); Platelet Count 211 K/mm3 (150-450); RBC Distribution Width CV 14.1 % (11.6-14.6); RBC Distribution Width SD 50.2 fl (35.1-43.9); Red Blood Count 4.19 M/mm3 (4.6-6.2); White Blood Count 5.6 K/mm3 (4.4-11.0)
[2024-12-21 17:29] LABS: Anion Gap 14 (5-15); BUN 14 mg/dL (4-19); BUN/Creat Ratio 9.8 RATIO (10-20); Calcium,Total 9.9 mg/dL (7.6-11.0); Carbon Dioxide 26.4 mmol/L (21.0-32.0); Chloride 99 mmol/L (98-108); Estimated Creatinine Clearance 38.29 ml/min (50-250); Glucose 63 mg/dL (70-99); Potassium 3.8 mmol/L (3.3-5.1); Pro- Brain NATRIURETIC PEPTIDE 542 pg/mL (<=1800)
[2024-12-21 17:42] LABS: Partial Thromboplast Time 29.7 Seconds (24.1-36.2); Prothrombin Time (Protime)PT. 14.6 SECONDS (11.7-14.9); Troponin T High Sensitivity 44 ng/L (<=22)
[2024-12-21] MEDS: 0.9% Normal Saline (1000mL) 1,000 ML 999 ML IV (17:53)
[2024-12-21] MEDS: Piperacil/Tazobactam 3.375 GM in 0.9% Normal Saline (50mL MB+) 50 ML IV (18:23)
[2024-12-21] MEDS: Vancomycin HCl 1,500 MG in 0.9% Normal Saline (500mL Bag) 500 ML 250 MG IV (18:55)
[2024-12-21 19:55] LABS: Troponin T High Sens 2 HR 42 ng/L (<=22)
== END 2024-12-21 22:03 | disposition home or self-care (01) ==
PROVIDERS: Emergency Provider Emergency Medicine; PCP Internal Medicine; Visit Provider Emergency Medicine
DX: R06.02 Shortness of breath (principal); E11.22 Type 2 diabetes mellitus with diabetic chronic kidney disease; Z79.4 Long term (current) use of insulin; N18.30 Chronic kidney disease, stage 3 unspecified; Z87.891 Personal history of nicotine dependence; R05.9 Cough, unspecified; I12.9 Hypertensive chronic kidney disease with stage 1 through stage 4 chronic kidney disease, or unspecified chronic kidney disease; E78.5 Hyperlipidemia, unspecified; I25.10 Atherosclerotic heart disease of native coronary artery without angina pectoris; Z86.73 Personal history of transient ischemic attack (TIA), and cerebral infarction without residual deficits; Z79.899 Other long term (current) drug therapy; Z79.82 Long term (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 of aspirin; E03.9 Hypothyroidism, unspecified; Z79.890 Hormone replacement therapy; K21.9 Gastro-esophageal reflux disease without esophagitis; Z79.02 Long term (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 of antithrombotics/antiplatelets; Z90.49 Acquired absence of other specified parts of digestive tract
CPT/HCPCS: 71046; 71250; 80048; 83880; 84484; 85025; 85610; 85730; 93005; 96365; 96366; 96368; 99284; A4216

== ENCOUNTER 2024-12-31 14:25 | Emergency (ER) | payer MEDICARE, SELFPAY ==
[2024-12-31 14:26] VITALS: BP 128/69; PULSE 66; RESP 20; TEMP 37.2; O2SAT 94; BMI 39.1
--- NOTE | 2024-12-31 14:42 | ED.VIS.FALL ---
HPI HPI - Fall History of Present Illness Chief Complaint: Fall Informant: patient Occured/Mechanism Occurred: Today Mechanism/Context: Yes trip Narrative: Patient tripped over a curb Pain/Injury Location: Bridge of the nose Pain Location: face Worsened by: Nothing Relieved by: Nothing Associated Symptoms Associated Symptoms: Negative for Parasthesias, Weakness, Loss of function, Inability to ambulate, Loss of consciousness or Amnesia Narrative Narrative: Patient presents after a fall. Patient tripped over a curb and fell forward. Patient denies any loss of consciousness. Patient denies any paresthesias or weakness. Patient states his pain is mainly over the bridge of his nose. Patient admits to some epistaxis. Patient states this has resolved. Patient states he just feels dried blood in his nose. Patient denies any visual changes. states patient recently was treated for pneumonia and is feeling better. 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 Obesity History of CVA (cerebrovascular accident) Stroke/cerebrovascular accident Body mass index (BMI) 40.0-44.9, adult GERD (gastroesophageal reflux disease) BPH (benign prostatic hyperplasia) Hypothyroidism Osteoarthritis CKD (chronic kidney disease) stage 3, GFR 30-59 ml/min Debility Iron deficiency anemia Syncope and collapse Right bundle branch block (RBBB) with left anterior fascicular block Premature ventricular contractions Essential (primary) hypertension Vocal cord dysfunction DANYELL (obstructive sleep apnea) Hiatal hernia BMI 40.0-44.9, adult Dyspnea Cough Shortness of breath Obesity Upper respiratory infection Right flank pain Anemia Atherosclerotic heart disease of [place] coronary artery without angina pectoris 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 Palpitations Nonrheumatic tricuspid (valve) insufficiency HLD (hyperlipidemia) Chest pain Appendicitis Benign prostatic hypertrophy GERD (gastroesophageal reflux disease) Nephrolithiasis Diabetes mellitus type 2 in obese Home Medications ?Medication ?Instructions ?Recorded ?Last Taken ?Type cholecalciferol (vitamin D3) 125 5,000 unit PO DAILY vitamin 06/29/15 02/10/20 History mcg (5,000 unit) capsule finasteride 5 mg tablet 5 mg PO DAILY prostate 06/29/15 10/29/21 History aspirin 81 mg tablet,delayed 81 mg PO DAILY heart health 07/24/15 10/29/21 History release acetaminophen 500 mg tablet 1,000 mg (2 x 500 mg) PO Q6H PRN 02/19/20 Unknown Rx PRN Pain Score 1-3/10 Handi cap Placard #1 ea 10/14/20 Unknown Rx vitamins A,C,K-xrtv-oicsos 2,148 1 tab PO BID 12/17/20 Unknown History mcg-113 mg-45 mg-17.4 mg tablet (PreserVision AREDS) pen needle, diabetic 32 gauge x #100 ea 12/25/20 Unknown Rx 06/22 Compression stockings (04-07) #2 ea 01/04/24 Unknown Rx Left AFO #1 ea 01/04/24 Unknown Rx levothyroxine 50 mcg tablet 50 mcg PO DAILY thyroid #90 tabs 02/01/24 Unknown Rx escitalopram oxalate 10 mg tablet 10 mg PO DAILY #90 tabs 03/05/24 Unknown Rx pantoprazole 40 mg tablet,delayed See Rx Instructions .Route 03/05/24 Unknown Rx release .COMPLEX #90 tabs metformin 500 mg tablet 500 mg PO BIDCM diabetes #180 tabs 03/19/24 Unknown Rx isosorbide mononitrate 30 mg 30 mg PO DAILY #90 TABLETS 04/01/24 Unknown Rx tablet,extended release 24 hr ascorbic acid (vitamin C) 1,000 mg 1 g PO DAILY 06/15/24 Unknown History tablet (C-1000) cyanocobalamin (vitamin B-12) 1,000 mcg PO DAILY 06/15/24 Unknown History 1,000 mcg tablet (Vitamin B-12) ferrous sulfate 325 mg (65 mg 325 mg PO DAILY 06/15/24 Unknown History iron) tablet (Feosol) folic acid 1 mg tablet 1 mg PO DAILY #30 tabs 06/15/24 Unknown Rx hydrocodone-acetaminophen 5-325mg 0.5 - 1 tab PO BID PRN PRN pain 06/15/24 Unknown History 5mg-325mg zinc acetate 50 mg (zinc) capsule 50 mg PO DAILY 06/15/24 Unknown History insulin human U-100 NPH-regulr See Rx Instructions subcut BID 06/24/24 Unknown History 70-30 mix 100 unit/mL subcutaneous susp (Humulin 70/30 U-100 Insulin) pravastatin 20 mg tablet 20 mg PO DAILY cholesterol #90 tabs 07/23/24 Unknown Rx carbidopa 25 mg-levodopa 100 mg 2 tab PO TID #180 tabs 08/01/24 Unknown Rx tablet (Sinemet) amlodipine 5 mg tablet 5 mg PO DAILY BP #90 tabs 09/27/24 Unknown Rx trazodone 50 mg tablet 50 mg PO QHS PRN PRN insomnia #60 10/03/24 Unknown Rx tabs fludrocortisone 0.1 mg tablet See Rx Instructions PO .COMPLEX 10/23/24 Unknown Rx #28 tabs clopidogrel 75 mg tablet 75 mg PO DAILY for cholesterol #90 11/08/24 Unknown Rx TABLETS hydrocodone 7.5 mg-acetaminophen 1 tab PO TID PRN PRN pain 11/19/24 Unknown History 325 mg tablet furosemide 40 mg tablet 40 mg PO DAILY #90 TABLETS 12/23/24 Unknown Rx ranolazine 1,000 mg 1,000 mg PO BID #180 tabs 12/23/24 Unknown Rx tablet,extended release,12 hr Allergy/AdvReac Type Severity Reaction Status Date / Time lisinopril Allergy Mild Cough Verified 12/31/24 14:26 naproxen (From Aleve) Allergy HIVES Verified 12/31/24 14:26 losartan AdvReac Intermediate Jitters Verified 12/31/24 14:26 metoprolol AdvReac Intermediate Jitters Verified 12/31/24 14:26 pioglitazone HCl (From Actos) AdvReac Mild Upset Verified 12/31/24 14:26 Stomach Family History Mother CAD (coronary artery disease) CVA (cerebral vascular accident) Brother CAD (coronary artery disease) Myocardial infarction Diabetes Heart disease Daughter Asthma Father Cancer bone cancer Sister Breast cancer Asthma Diabetes Heart disease Sister Cardiomyopathy Surgical History History of right and left heart catheterization (07/02/18) History of coronary artery stent placement (07/01/15) History of left heart catheterization (11/01/21) History of lymph node biopsy History of appendectomy History of back surgery Social History household members: spouse housing: house Smoking Status: Former smoker pack-years: 2 how long ago did patient quit smokin+ years ago alcohol intake: former substance use type: does not use caffeine: Yes Type: coffee Number of servings: 2 what type of physical activity do you participate in: none seatbelt use: always do you feel safe at home: Yes ROS ROS ED Constitutional Constitutional ED: Denies chills or fever(s) Eyes Eyes: Denies blurry vision or change in vision ENT ENT ED: Denies sore throat Cardiovascular Cardiovascular: Denies chest pain or palpitations Respiratory/Chest Respiratory/Chest: Reports dyspnea; Denies cough Gastrointestinal Gastrointestinal: Denies nausea or vomiting Genitourinary Genitourinary ED: Denies dysuria or hematuria Musculoskeletal Musculoskeletal: Reports back pain; Denies neck pain Integumentary Denies abscess or rash Neurologic Neurologic: Denies headache(s) or weakness Allergic/Immunologic Allergic/Immunologic ED: Denies mouth swelling or urticaria EXAM Physical Exam Const Vital Signs: 12/31/24 14:26 12/31/24 14:33 12/31/24 16:25 Temperature 99 F Temperature Source Oral Pulse Rate 66 69 Respiratory Rate 20 H 16 Respiratory Effort Normal Non-Labored Respiratory Depth Normal Respiratory Pattern Normal Blood Pressure 128/69 H 148/96 H Blood Pressure Mean 88 113 Pulse Ox 94 96 Oxygen Delivery Method Room Air Positive well nourished and well developed Constitutional Narrative: BMI is 39.1. General Appearance ED: well developed and NAD HEENT HEENT Narrative: Oral mucosa is pink and moist. Oropharynx is clear. Airway is patent. Nasal mucosa shows some dried blood on the nasal septum bilaterally but worse on the left. There is no septal deviation or septal hematoma noted. There is tenderness over the bridge of the nose. There is some edema and ecchymosis over this area. There is no bony crepitance or step-off noted. Eyes PERRL and EOMs intact bilaterally Neck full ROM Resp normal respiratory effort and clear to auscultation bilaterally Cardio regular rate and regular rhythm GI non-tender and non-distended Palpation: soft Neuro oriented x3, CN's II-XII intact bilaterally, moves all extremities, no focal motor deficits and no sensory deficits noted Simona Coma Scale: document GCS findings Spontaneous Obeys Commands Oriented 15 Sensorium / Orientation: alert Motor Exam: strength 5/5 throughout Psych mental status grossly normal MDM MDM MDM Narrative Medical decision making narrative: Differential diagnosis includes intracranial bleeding, closed head injury, nasal fracture, and epistaxis. CT scan of the brain will be obtained to assess for intracranial bleeding and nasal fracture. History & Record Review Additional record(s) reviewed:: Prior outpatient record, Prior ED visit and Prior labs Radiography Diagnostic Testing: Clinical Impression(s) from Imaging Studies Brain CT 12/31/24 15:31 IMPRESSION: 1. Small esophageal hiatal hernia. 2. No acute intracranial hemorrhage, midline shift or mass effect. If symptoms persist, further evaluation with MRI is recommended. 3. Generalized brain atrophy. 4. No significant change from the prior exam. Reading Location: [facility] CT scan of the brain was obtained. There is no acute intracranial abnormality. There is no nasal bone fracture. There is generalized atrophy. This was interpreted by the radiologist and was also independently reviewed by myself. Treatment and Re-Evaluation Narrative: Patient was given a tetanus booster. The nares were cleaned with Rayray solution. There is no active bleeding noted. There is a small clot removed from the right nares. Patient had no further episodes of bleeding. I do not feel nasal packing is necessary at this time. Patient was instructed to use ice to the area. Patient was instructed to follow-up with his primary care physician in 5 to 7 days. Patient was instructed to return if worse in any way. Patient understood and was agreeable with the plan. All questions were answered. Discharge Plan Triage Chief Complaint: Fall ED Provider: Tevin Tran Dx/Rx/DC Orders Clinical Impression: Facial contusion, Parkinson's disease, Fall, Epistaxis Instructions: ED Epistaxis (Adult), ED Facial Contusion Prescriptions: No Action PreserVision AREDS 7,160 unit- 113 mg-100 unit tablet 1 tab PO BID Rx Instructions: administer with AM and PM meals (DME) Left AFO See Rx Instructions .Route .MEDSUPPLY Qty: 1 0RF Rx Instructions: As directed (DME) Compression stockings (10-20) See Rx Instructions .Route .MEDSUPPLY Qty: 2 0RF Rx Instructions: As directed carbidopa-levodopa [Sinemet] 25-100 mg tablet 2 tab PO TID Qty: 180 6RF Humulin 70/30 U-100 Insulin 100 unit/mL (70-30) suspension See Rx Instructions subcut BID Rx Instructions: subcutaneously twice a day; 28 units each AM, and 20 units each PM. ranolazine 1,000 mg tablet extended release 12 hr 1,000 mg PO BID Qty: 180 3RF furosemide 40 mg tablet 40 mg PO DAILY Qty: 90 3RF Rx Instructions: 40mg PO BID x 3-5 days followed by 40mg PO daily (12/23/2024) cholecalciferol (vitamin D3) 5,000 UNIT capsule 5,000 unit PO DAILY Patient Comments: SUPPLIMENT finasteride 5 MG tablet 5 mg PO DAILY Patient Comments: PROSTATE aspirin 81 MG tablet,delayed release (DR/EC) 81 mg PO DAILY acetaminophen 500 MG tablet 1,000 mg PO Q6H PRN PRN (Reason: Pain Score 1-3/10) 0RF hydrocodone-acetaminophen 5-325 mg tablet 0.5 - 1 tab PO BID PRN PRN (Reason: pain) zinc acetate 50 mg (zinc) capsule 50 mg PO DAILY ferrous sulfate [Feosol] 325 mg (65 mg iron) tablet 325 mg PO DAILY cyanocobalamin (vitamin B-12) [Vitamin B-12] 1,000 mcg tablet 1,000 mcg PO DAILY ascorbic acid (vitamin C) [C-1000] 1,000 mg tablet 1 g PO DAILY folic acid 1 mg tablet 1 mg PO DAILY Qty: 30 0RF hydrocodone-acetaminophen 7.5-325 mg tablet 1 tab PO TID PRN PRN (Reason: pain) (DME) Elizabeth Figueroa See Rx Instructions .Route .MEDSUPPLY Qty: 1 0RF Rx Instructions: difficulty walking short distance. expires in 5 years (DME) pen needle, diabetic 32 gauge x 1/4 needle See Rx Instructions .ROUTE .MEDSUPPLY Qty: 100 2RF Rx Instructions: As directed levothyroxine 50 mcg tablet 50 mcg PO DAILY Qty: 90 3RF escitalopram oxalate 10 mg tablet 10 mg PO DAILY Qty: 90 3RF Rx Instructions: Take 1/2 tablet for 4 days then increase to 1 tablet. pantoprazole 40 mg tablet,delayed release (DR/EC) See Rx Instructions .ROUTE .COMPLEX Qty: 90 3RF Dose Instruction: TAKE 1 TABLET BY MOUTH ONCE DAILY FOR REFLUX Rx Instructions: TAKE 1 TABLET BY MOUTH ONCE DAILY FOR REFLUX metformin 500 mg tablet 500 mg PO BIDCM Qty: 180 3RF isosorbide mononitrate 30 mg tablet extended release 24 hr 30 mg PO DAILY Qty: 90 3RF pravastatin 20 mg tablet 20 mg PO DAILY Qty: 90 3RF amlodipine 5 mg tablet 5 mg PO DAILY Qty: 90 3RF trazodone 50 mg tablet 50 mg PO QHS PRN PRN (Reason: insomnia) Qty: 60 1RF fludrocortisone 0.1 mg tablet See Rx Instructions PO .COMPLEX Qty: 28 2RF Rx Instructions: Take 1 tablet orally in the morning 6 days/week (Monday, Monday, Monday, , Monday, Monday) clopidogrel 75 mg tablet 75 mg PO DAILY Qty: 90 3RF Primary Care Provider: Marie Maciel Referrals: Marie Maciel MD [Primary Care Provider] - 5-7 Days Activity Restrictions/Additional Instructions: Use ice to the bridge of your nose. This will help with swelling. This will also help with any bleeding from the nose. Print Language: Romansh Disposition Disposition: Home, Self Care
--- NOTE | 2024-12-31 15:31 | CT_ITS ---
EXAM: CT Head Without Intravenous Contrast CLINICAL INDICATION: INJURY/PAIN TECHNIQUE: Axial computed tomography images of the head/brain without intravenous contrast. This CT exam was performed using one or more of the following dose reduction techniques: automated exposure control, adjustment of the mA and/or kV according to patient size, and/or use of iterative reconstruction technique. COMPARISON: CT Head dated 06/15/2024 FINDINGS: BRAIN AND EXTRA-AXIAL SPACES: No acute intracranial hemorrhage, midline shift or mass effect. If symptoms persist, further evaluation with MRI is recommended. The cerebral and cerebellar sulci are prominent consistent with brain atrophy. No significant white matter disease. BONES/JOINTS: Unremarkable. No acute fracture. SOFT TISSUES: Unremarkable. SINUSES: Unremarkable as visualized. No acute sinusitis. MASTOID AIR CELLS: Unremarkable as visualized. No mastoid effusion. OTHER FINDINGS: Small esophageal hiatal hernia. CT/Brain/Head without Contrast IMPRESSION: 1. Small esophageal hiatal hernia. 2. No acute intracranial hemorrhage, midline shift or mass effect. If symptoms persist, further evaluation with MRI is recommended. 3. Generalized brain atrophy. 4. No significant change from the prior exam. Reading Location: [id number]
--- NOTE | 2024-12-31 15:31 | CT_ITS ---
EXAM: CT Head Without Intravenous Contrast CLINICAL INDICATION: INJURY/PAIN TECHNIQUE: Axial computed tomography images of the head/brain without intravenous contrast. This CT exam was performed using one or more of the following dose reduction techniques: automated exposure control, adjustment of the mA and/or kV according to patient size, and/or use of iterative reconstruction technique. COMPARISON: CT Head dated 06/15/2024 FINDINGS: BRAIN AND EXTRA-AXIAL SPACES: No acute intracranial hemorrhage, midline shift or mass effect. If symptoms persist, further evaluation with MRI is recommended. The cerebral and cerebellar sulci are prominent consistent with brain atrophy. No significant white matter disease. BONES/JOINTS: Unremarkable. No acute fracture. SOFT TISSUES: Unremarkable. SINUSES: Unremarkable as visualized. No acute sinusitis. MASTOID AIR CELLS: Unremarkable as visualized. No mastoid effusion. OTHER FINDINGS: Small esophageal hiatal hernia. CT/Brain/Head without Contrast IMPRESSION: 1. Small esophageal hiatal hernia. 2. No acute intracranial hemorrhage, midline shift or mass effect. If symptoms persist, further evaluation with MRI is recommended. 3. Generalized brain atrophy. 4. No significant change from the prior exam. Reading Location: [id number]
[2024-12-31 16:25] VITALS: BP 148/96; PULSE 69; RESP 16; O2SAT 96
[2024-12-31] MEDS: Mixture 30 ML Bottle TOPICAL (16:51)
[2024-12-31 17:18] VITALS: BP 148/96; PULSE 69; RESP 16; TEMP 37.1; O2SAT 96
== END 2024-12-31 17:21 | disposition home or self-care (01) ==
PROVIDERS: Emergency Provider Emergency Medicine; PCP Internal Medicine; Visit Provider Emergency Medicine
DX: R04.0 Epistaxis (principal); G20.A1 Parkinson's disease without dyskinesia, without mention of fluctuations; E11.22 Type 2 diabetes mellitus with diabetic chronic kidney disease; Z79.4 Long term (current) use of insulin; N18.30 Chronic kidney disease, stage 3 unspecified; Z87.891 Personal history of nicotine dependence; I12.9 Hypertensive chronic kidney disease with stage 1 through stage 4 chronic kidney disease, or unspecified chronic kidney disease; I25.10 Atherosclerotic heart disease of native coronary artery without angina pectoris; W10.1XXA Fall (on)(from) sidewalk curb, initial encounter; E78.5 Hyperlipidemia, unspecified; S00.83XA Contusion of other part of head, initial encounter; Z86.73 Personal history of transient ischemic attack (TIA), and cerebral infarction without residual deficits; N40.0 Benign prostatic hyperplasia without lower urinary tract symptoms; Z79.899 Other long term (current) drug therapy; Z79.82 Long term (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 of aspirin; E03.9 Hypothyroidism, unspecified; Z79.890 Hormone replacement therapy; K21.9 Gastro-esophageal reflux disease without esophagitis; Z79.84 Long term (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 of oral hypoglycemic drugs; Z95.5 Presence of coronary angioplasty implant and graft; Z90.49 Acquired absence of other specified parts of digestive tract; Z23 Encounter for immunization
CPT/HCPCS: 70450; 90715; 99284

== ENCOUNTER → 2025-01-02 | Outpatient (CLI) | payer MEDICARE, SELFPAY ==
--- NOTE | 2025-01-02 13:55 | ECHOD_ITS ---
Reason For Study Reason For Study: CVA Procedure This was a 2D Doppler, Color Flow transthoracic echocardiogram. Exam performed portable in patient room. Left Ventricle Normal size and thickness. Borderline LV systolic function. Estimated LVEF 45- 50%. Stage I diastolic dysfunction. Right Ventricle Normal RV size. Normal systolic function. Atria The left atrium is mildly enlarged. Normal right atrium. Mitral Valve Trivial mitral valve insufficiency. Tricuspid Valve Trivial tricuspid valve insufficiency. Unable to estimate RV systolic pressure due to insufficient tricuspid regurgitant envelope. Aortic Valve Trisinus/trileaflet aortic valve. Pulmonic Valve The pulmonic valve is not well visualized. Great Vessels The aortic root is not well visualized. Pericardium/Pleural No pericardial effusion. MMode/2D Measurements & Calculations LVIDd: 4.7 cm IVSd: 1.0 cm LAV(MOD- bp): 66.8 ml LVIDs: 3.4 cm LVPWd: 1.3 cm LAV(MOD- bp) Indexed: 32.8 ml/m2 FS: 26.6 % LAV(MOD- sp2): 54.6 ml LAV(MOD- sp4): 71.1 ml SV(MOD-sp4): 58.4 ml SV(sp4- el): 60.3 ml LVAd ap4: 33.8 cm2 LVLd ap4: 7.9 cm SI(MOD-sp4): 28.7 ml/m2 EDV(MOD-sp4): 126.3 ml EDV(sp4-el): 122.2 ml LVAs ap4: 22.3 cm2 LVLs ap4: 6.8 cm ESV(MOD-sp4): 67.9 ml ESV(sp4-el): 61.9 ml EF(MOD-sp4): 46.3 % EF(sp4-el): 49.4 % LA A4 area: 23.2 cm2 RA A4 area: 17.5 cm2 Doppler Measurements & Calculations MV E max geo: 72.3 cm/sec Lat Peak E' Geo: 8.2 cm/sec Med Peak E' Geo: 5.9 cm/sec MV A max geo: 49.9 cm/sec E/E' lat: 8.8 E/E' med: 12.2 MV E/A: 1.4 MV V2 max: 72.3 cm/sec MV P1/2t max geo: 73.2 cm/sec Ao V2 max: 164.0 cm/sec MV max P.1 mmHg MV P1/2t: 62.8 msec Ao max P.8 mmHg MV V2 mean: 38.4 cm/sec MV mean P.70 mmHg MV dec slope: 341.3 cm/sec2 MV V2 VTI: 27.6 cm MVA(P1/2t): 3.5 cm2 LV V1 max: 107.1 cm/sec LV V1 max P.6 mmHg ECHO/Echo Complete Interpretation Summary Borderline LV systolic function. Estimated LVEF 45-50%. Stage I diastolic dysfu nction. The left atrium is mildly enlarged. Ordering Physician: Marie Maciel Referring Physician: Marie Maciel Performed By: Orin Guthrie and Student
== END | disposition home or self-care (01) ==
LOC: CVS 13:51
PROVIDERS: PCP Internal Medicine; Referring Provider Internal Medicine; Visit Provider Internal Medicine
DX: R06.09 Other forms of dyspnea (principal)
CPT/HCPCS: 93306

== ENCOUNTER 2025-01-07 01:04 | Observation (INO) | payer MEDICARE, SELFPAY ==
[2025-01-07] VITALS (8 sets, daily range): BP systolic 117–157; BP diastolic 62–102; PULSE 65–96; RESP 18–20; TEMP 36.3–37.1; O2SAT 91–98; BMI 38.8; BMI 37.9
--- NOTE | 2025-01-07 01:10 | EKG12_ITS ---
Test Reason : DYSRHYTHMIA Blood Pressure : */* mmHG Vent. Rate : 73 BPM Atrial Rate : 73 BPM P-R Int : 190 ms QRS Dur : 154 ms QT Int : 444 ms P-R-T Axes : 70 -56 60 degrees QTcB Int : 489 ms Normal sinus rhythm Right bundle branch block Left anterior fascicular block Bifascicular block Left ventricular hypertrophy with repolarization abnormality ( R in aVL ) Abnormal ECG Confirmed by Rishabh Cantor ([id number]), video tape editor MATTHIEU SEGUNDO ([id number]) on 01/08/2025 1:45:07 PM Referred By: Confirmed By: Rishabh Cantor
--- NOTE | 2025-01-07 01:10 | CT_ITS ---
PROCEDURE: BRAIN/HEAD WITHOUT CONTRAST 01/07/2025 REASON FOR EXAM: FALL TECHNIQUE: BRAIN/HEAD WITHOUT CONTRAST Coronal and Sagittal reconstruction series were provided. One or more dose reduction techniques were used (e.g., Automated exposure control, adjustment of the mA and/or kV according to patient size, use of iterative reconstruction technique. RADIATION DOSE SUMMARY: CTDlvol: 75 mGy DLP: 1433 mGycm COMPARISON: 12/31/2024 FINDINGS: Diffuse atrophy. Mild white matter change. No acute abnormal brain densities. No intracranial hemorrhage. No hydrocephalus or midline shift. No acute scalp or skull pathology. Bilateral lens extraction. Bilateral proptosis. Clear sinuses. CT/Brain/Head without Contrast IMPRESSION: No acute intracranial findings Reading Location: [place] [id number]
--- NOTE | 2025-01-07 01:10 | CT_ITS ---
PROCEDURE: SPINE CERVICAL WITHOUT CONTRAS 01/07/2025 REASON FOR EXAM: FALL TECHNIQUE: SPINE CERVICAL WITHOUT CONTRAS Coronal and Sagittal reconstruction series were provided. One or more dose reduction techniques were used (e.g., Automated exposure control, adjustment of the mA and/or kV according to patient size, use of iterative reconstruction technique. RADIATION DOSE SUMMARY: CTDlvol: 75 mGy DLP: 1433 mGycm COMPARISON: 11/12/2023 FINDINGS: Diffuse cervical spine degeneration. Mild scoliosis. No acute fracture or dislocation. No soft tissue injury. No apical pneumothorax. CT/Spine Cervical without Contras IMPRESSION: No acute cervical spine injury. Reading Location: [place] [id number]
[2025-01-07 01:24] LABS: Mucous, Urine 0 SEEN /hpf (<or=2+); Red Blood Cells-Urine 0 SEEN /hpf (0-5)
[2025-01-07 01:28] LABS: Color, Urine Yellow (Yellow); Glucose, Dipstick Normal (Normal); Ketone-Dipstick 5 mg/dl (Negative); Leukocyte Esterase-Dipstick 500 /ul (Negative); Nitrite-Dipstick Negative (Negative); Occult Blood-Urine Negative /ul (Negative); Protein-Dipstick 30 mg/dl (Negative); Specific Gravity, Urine 1.015 (1.002-1.030); Urine Bilirubin Dipstick Negative (Negative)
[2025-01-07 01:31] LABS: Hematocrit 38.6 % (40-54); Hemoglobin 13.0 g/dL (13.0-16.5); Immature Granulocytes Count 0.060 X10^3/uL (0.0-0.0); Mean Corp Hgb Conc 33.7 g/dL (32-36); Mean Corpuscular Volume 97.5 fL (80-94); Mean Platelet Vol. 8.7 fl (6.2-12.0); NRBC Flagged by Analyzer 0 % (0-5); Platelet Count 226 K/mm3 (150-450); RBC Distribution Width CV 13.7 % (11.6-14.6); RBC Distribution Width SD 50.0 fl (35.1-43.9); Red Blood Count 3.96 M/mm3 (4.6-6.2); White Blood Count 7.0 K/mm3 (4.4-11.0)
[2025-01-07 01:40] LABS: Partial Thromboplast Time 29.1 Seconds (24.1-36.2); Prothrombin Time (Protime)PT. 14.5 SECONDS (11.7-14.9)
[2025-01-07] MEDS: 0.9% Normal Saline (1000mL) 1,000 ML 999 ML IV (01:46)
--- NOTE | 2025-01-07 01:49 | RAD_ITS ---
PROCEDURE: CHEST 1 VIEW (PORTABLE) 01/07/2025 REASON FOR EXAM: FALL TECHNIQUE: Frontal view of the chest. COMPARISON: 12/21/2024 FINDINGS: Lordotic positioning. Heart size is upper limits of normal. Status post CABG. Prominent fat pads. Moderate-sized hiatal hernia. Limited retrocardiac visibility. No definite consolidation effusion or pneumothorax. Elevated right hemidiaphragm. Old left-sided chest wall injury or thoracotomy. Advise correlation. RAD/Chest 1 View (Portable) IMPRESSION: No acute chest findings. Reading Location: [place] [address]
[2025-01-07 02:13] LABS: Calcium Oxalate Crystals Ur RARE /hpf (<or=2+); Squamous Epithelial Cells - UA 0-5 SEEN /hpf (0-5); Transitional Epithelial - Ur 0-5 SEEN /hpf (0-5)
[2025-01-07 02:18] LABS: Lipase 20 U/L (13-75)
--- NOTE | 2025-01-07 02:31 | EX.ED.DYSGE1 ---
HPI History of Present Illness Chief Complaint: Weakness Narrative Narrative: Patient is a 89-year-old male with past medical history of Parkinson's disease, TIA, vitamin B-12 deficiency, CVA, BPH, hypothyroidism, chronic kidney disease, right bundle branch block, type 2 diabetes, hyperlipidemia who presented to the emergency department with a chief complaint of multiple falls. Patient states that he has had increased weakness over the last 3 weeks and he states that he has had multiple falls over the last several days. Patient states that he is on a blood thinner but does not recall what blood thinner he is on he states that he is unsure why he is falling he just feels very weak overall. Patient states that he did not pass out he did not lose consciousness. Patient fell twice at night within a few hours. [facility] Medical History Frequent falls Shortness of breath at rest Pneumonia Parkinson's disease Vasovagal episode Obesity (BMI 30-39.9) TIA (transient ischemic attack) Orthostatic hypotension B12 nutritional deficiency Mild cognitive impairment Diabetes mellitus Cardiomyopathy Cervical osteoarthritis Bilateral arm pain Cervical radiculopathy Visit for suture removal Acute otitis media, left 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 Obesity History of CVA (cerebrovascular accident) Stroke/cerebrovascular accident Body mass index (BMI) 40.0-44.9, adult GERD (gastroesophageal reflux disease) BPH (benign prostatic hyperplasia) Hypothyroidism Osteoarthritis CKD (chronic kidney disease) stage 3, GFR 30-59 ml/min Debility Iron deficiency anemia Syncope and collapse Right bundle branch block (RBBB) with left anterior fascicular block Premature ventricular contractions Essential (primary) hypertension Vocal cord dysfunction DANYELL (obstructive sleep apnea) Hiatal hernia BMI 40.0-44.9, adult Dyspnea Cough Shortness of breath Obesity Upper respiratory infection Right flank pain Anemia Atherosclerotic heart disease of [place] coronary artery without angina pectoris 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 Palpitations Nonrheumatic tricuspid (valve) insufficiency HLD (hyperlipidemia) Chest pain Appendicitis Benign prostatic hypertrophy GERD (gastroesophageal reflux disease) Nephrolithiasis Diabetes mellitus type 2 in obese Home Medications ?Medication ?Instructions ?Recorded ?Last Taken ?Type cholecalciferol (vitamin D3) 125 5,000 unit PO DAILY vitamin 06/29/15 02/10/20 History mcg (5,000 unit) capsule finasteride 5 mg tablet 5 mg PO DAILY prostate 06/29/15 10/29/21 History aspirin 81 mg tablet,delayed 81 mg PO DAILY heart health 07/24/15 10/29/21 History release acetaminophen 500 mg tablet 1,000 mg (2 x 500 mg) PO Q6H PRN 02/19/20 Unknown Rx PRN Pain Score 1-3/10 Elizabeth Figueroa #1 ea 10/14/20 Unknown Rx vitamins A,C,J-hycr-tapjye 2,148 1 tab PO BID 12/17/20 Unknown History mcg-113 mg-45 mg-17.4 mg tablet (PreserVision AREDS) pen needle, diabetic 32 gauge x #100 ea 12/25/20 Unknown Rx 1/4 Compression stockings (04-07) #2 ea 01/04/24 Unknown Rx Left AFO #1 ea 01/04/24 Unknown Rx levothyroxine 50 mcg tablet 50 mcg PO DAILY thyroid #90 tabs 02/01/24 Unknown Rx escitalopram oxalate 10 mg tablet 10 mg PO DAILY #90 tabs 03/05/24 Unknown Rx pantoprazole 40 mg tablet,delayed See Rx Instructions .Route 03/05/24 Unknown Rx release .COMPLEX #90 tabs metformin 500 mg tablet 500 mg PO BIDCM diabetes #180 tabs 03/19/24 Unknown Rx isosorbide mononitrate 30 mg 30 mg PO DAILY #90 TABLETS 04/01/24 Unknown Rx tablet,extended release 24 hr ascorbic acid (vitamin C) 1,000 mg 1 g PO DAILY 06/15/24 Unknown History tablet (C-1000) cyanocobalamin (vitamin B-12) 1,000 mcg PO DAILY 06/15/24 Unknown History 1,000 mcg tablet (Vitamin B-12) ferrous sulfate 325 mg (65 mg 325 mg PO DAILY 06/15/24 Unknown History iron) tablet (Feosol) folic acid 1 mg tablet 1 mg PO DAILY #30 tabs 06/15/24 Unknown Rx hydrocodone-acetaminophen 5-325mg 0.5 - 1 tab PO BID PRN PRN pain 06/15/24 Unknown History 5mg-325mg zinc acetate 50 mg (zinc) capsule 50 mg PO DAILY 06/15/24 Unknown History insulin human U-100 NPH-regulr See Rx Instructions subcut BID 06/24/24 Unknown History 70-30 mix 100 unit/mL subcutaneous susp (Humulin 70/30 U-100 Insulin) pravastatin 20 mg tablet 20 mg PO DAILY cholesterol #90 tabs 07/23/24 Unknown Rx carbidopa 25 mg-levodopa 100 mg 2 tab PO TID #180 tabs 08/01/24 Unknown Rx tablet (Sinemet) amlodipine 5 mg tablet 5 mg PO DAILY BP #90 tabs 09/27/24 Unknown Rx trazodone 50 mg tablet 50 mg PO QHS PRN PRN insomnia #60 10/03/24 Unknown Rx tabs fludrocortisone 0.1 mg tablet See Rx Instructions PO .COMPLEX 10/23/24 Unknown Rx #28 tabs clopidogrel 75 mg tablet 75 mg PO DAILY for cholesterol #90 11/08/24 Unknown Rx TABLETS hydrocodone 7.5 mg-acetaminophen 1 tab PO TID PRN PRN pain 11/19/24 Unknown History 325 mg tablet furosemide 40 mg tablet 40 mg PO DAILY #90 TABLETS 12/23/24 Unknown Rx ranolazine 500 mg tablet,extended 500 mg PO BID #180 tabs 01/06/25 Unknown Rx release,12 hr Allergy/AdvReac Type Severity Reaction Status Date / Time lisinopril Allergy Mild Cough Verified 01/07/25 01:07 naproxen (From Aleve) Allergy HIVES Verified 01/07/25 01:07 losartan AdvReac Intermediate Jitters Verified 01/07/25 01:07 metoprolol AdvReac Intermediate Jitters Verified 01/07/25 01:07 pioglitazone HCl (From Actos) AdvReac Mild Upset Verified 01/07/25 01:07 Stomach Family History Mother CAD (coronary artery disease) CVA (cerebral vascular accident) Brother CAD (coronary artery disease) Myocardial infarction Diabetes Heart disease Daughter Asthma Father Cancer bone cancer Sister Breast cancer Asthma Diabetes Heart disease Sister Cardiomyopathy Surgical History History of right and left heart catheterization (07/02/18) History of coronary artery stent placement (07/01/15) History of left heart catheterization (11/01/21) History of lymph node biopsy History of appendectomy History of back surgery Social History household members: spouse housing: house Smoking Status: Former smoker pack-years: 2 how long ago did patient quit smokin+ years ago alcohol intake: former substance use type: does not use caffeine: Yes Type: coffee Number of servings: 2 what type of physical activity do you participate in: none seatbelt use: always do you feel safe at home: Yes ROS ROS ED ROS Narrative Constitutional: Denies fevers, chills, headaches Eyes: Denies change in vision double vision blurry vision Cardiovascular: Denies chest pain Respiratory: Denies shortness of breath Abdomen: Denies abdominal pain nausea vomit diarrhea : Denies any urinary symptoms Neurological: Complains of generalized weakness with multiple falls as noted above denies any numbness or tingling Musculoskeletal: Denies back pain Skin: Complains of scattered bruising EXAM Physical Exam Narrative Exam Narrative: General: Patient lying in bed rest comfortably did not appear to be in acute distress Head: Atraumatic, normocephalic Eyes: PERRL bilaterally, EOMI blood, no conjunctival injection noted, no Oh sign no raccoon eyes Neck: Soft, supple, trachea midline Cardiovascular: Regular rate and rhythm no murmurs gallops rubs noted Respiratory: Clear to auscultation bilaterally Abdomen: Soft, nondistended, no tenderness palpation Musculoskeletal: All joints taken through full range of motion and all bony prominence palpated no pain elicited Extremities: +5/5 strength noted in the bilateral upper extremities, +5/5 strength noted in the right lower extremity and +4/5 strength noted in the left lower extremity Neurological: Patient follow commands and that he was at [facility] the year is 2024 Skin: Patient has some bruising noted underneath his eyes on exam as well as scattered ecchymosis across his abdomen and his arms Const Vital Signs: 01/07/25 01:05 01/07/25 01:05 01/07/25 02:14 Temperature 98.8 F Temperature Source Oral Pulse Rate 75 Respiratory Rate 18 Respiratory Effort Normal Non-Labored Normal Non-Labored Respiratory Depth Normal Respiratory Pattern Normal Normal Blood Pressure 143/96 H Blood Pressure Mean 111 Pulse Ox 91 Oxygen Delivery Method Room Air Room Air 01/07/25 02:19 01/07/25 03:00 Temperature 98.4 F 98.4 F Temperature Source Oral Oral Pulse Rate 82 96 Respiratory Rate 20 H 18 Respiratory Effort Respiratory Depth Respiratory Pattern Blood Pressure 142/77 H 157/87 H Blood Pressure Mean 98 110 Pulse Ox 97 98 Oxygen Delivery Method Room Air Room Air MDM MDM MDM Narrative Medical decision making narrative: Patient is a 89-year-old male who presented to the emergency department with concern for multiple falls within the last few days. On the differential diagnosis includes but not limited to electrolyte abnormality, UTI, intracranial hemorrhage, ACS, deconditioning. Once workup is obtained reviewed he will be reevaluated. Patient CBC was reviewed and showed no evidence leukocytosis white blood count was 7, he was 13, plate count of 226. Patient INR normal at 1.1, PT of 14.5. Patient sodium was 135, potassium 4.7, creatinine was elevated 1.72 however he has underlying chronic kidney disease glucose is noted to be 124. Patient anion gap normal at 14. Patient's AST and ALT were 22 and less than 5 respectively. Patient lipase normal at 20, thyroid studies pending. Patient urinalysis reviewed showed 500 leukocyte esterase negative nitrates 10-25 white cells with 1+ bacteria. Patient was given a gram of Rocephin at 2:26 AM. At this point time do believe the patient warrants admission to the hospital for his multiple falls and generalized weakness in the setting of UTI. Will discuss case with hospitalist. Discussed case with hospitalist Dr. Valverde who will accept patient for admission. Updated the patient is agreeable with this plan all course concerns answered. Lab Data Labs: Laboratory Results - last 24 hr 01/07/25 01/07/25 01:20 01:25 WBC 7.0 RBC 3.96 L Hgb 13.0 Hct 38.6 L MCV 97.5 H MCH 32.8 H MCHC 33.7 RDW Std Deviation 50.0 H RDW Coeff of Perla 13.7 Plt Count 226 MPV 8.7 Immature Gran % (Auto) 0.900 Neut % (Auto) 79.1 H Lymph % (Auto) 10.0 L [place] % (Auto) 8.0 Eos % (Auto) 1.4 Baso % (Auto) 0.6 Absolute Neuts (auto) 5.5 Absolute Lymphs (auto) 0.70 L Nucleated RBC % 0 PT 14.5 INR 1.1 APTT 29.1 Sodium 135 Potassium 4.7 Chloride 95 L Carbon Dioxide 26.2 Anion Gap 14 BUN 23 H Creatinine 1.72 H Estim Creat Clear Calc 32.78 L Est GFR (MDRD) Non-Af 38 L BUN/Creatinine Ratio 13.3 Glucose 124 H Calcium 9.8 Total Bilirubin 0.55 AST 22 ALT < 5 Alkaline Phosphatase 53 Total Protein 6.7 Albumin 4.4 Globulin 2.3 Albumin/Globulin Ratio 1.9 Lipase 20 TSH 1.110 Free T4 1.20 Free T3 pg/dL 2.5 Urine Color Yellow Urine Clarity Clear Urine pH 6.0 Ur Specific [place] 1.015 Urine Protein 30 H Urine Glucose (UA) Normal Urine Ketones 5 H Urine Occult Blood Negative Urine Nitrite Negative Urine Bilirubin Negative Urine Urobilinogen Normal Ur Leukocyte Esterase 500 H Urine RBC 0 SEEN Urine WBC 10-25 SEEN Ur Squamous Epith Cells 0-5 SEEN Ur Transition Epith Cell 0-5 SEEN Calcium Oxalate Crystal RARE Urine Bacteria 1+ Urine Mucus 0 SEEN Radiography Diagnostic Testing: Clinical Impression(s) from Imaging Studies Brain CT 01/07/25 01:10 IMPRESSION: No acute intracranial findings Reading Location: [facility]- Cervical Spine CT 01/07/25 01:10 IMPRESSION: No acute cervical spine injury. Reading Location: [facility]-2 Chest X-Ray 01/07/25 01:49 IMPRESSION: No acute chest findings. Reading Location: [facility]- Discharge Plan Triage Chief Complaint: Weakness Other Complaint: Fall ED Provider: Derick Sorenson Dx/Rx/DC Orders Clinical Impression: Generalized weakness, Diabetes mellitus type 2 in obese, DANYELL (obstructive sleep apnea), Essential (primary) hypertension, CKD (chronic kidney disease) stage 3, GFR 30-59 ml/min, Hypothyroidism, Parkinson's disease, Multiple falls, Urinary tract infection Prescriptions: No Action PreserVision AREDS 7,160 unit- 113 mg-100 unit tablet 1 tab PO BID Rx Instructions: administer with AM and PM meals (DME) Left AFO See Rx Instructions .Route .MEDSUPPLY Qty: 1 0RF Rx Instructions: As directed (DME) Compression stockings (10-20) See Rx Instructions .Route .MEDSUPPLY Qty: 2 0RF Rx Instructions: As directed carbidopa-levodopa [Sinemet] 25-100 mg tablet 2 tab PO TID Qty: 180 6RF Humulin 70/30 U-100 Insulin 100 unit/mL (70-30) suspension See Rx Instructions subcut BID Rx Instructions: subcutaneously twice a day; 28 units each AM, and 20 units each PM. furosemide 40 mg tablet 40 mg PO DAILY Qty: 90 3RF Rx Instructions: 40mg PO BID x 3-5 days followed by 40mg PO daily (12/23/2024) ranolazine 500 mg tablet extended release 12 hr 500 mg PO BID Qty: 180 0RF cholecalciferol (vitamin D3) 5,000 UNIT capsule 5,000 unit PO DAILY Patient Comments: SUPPLIMENT finasteride 5 MG tablet 5 mg PO DAILY Patient Comments: PROSTATE aspirin 81 MG tablet,delayed release (DR/EC) 81 mg PO DAILY acetaminophen 500 MG tablet 1,000 mg PO Q6H PRN PRN (Reason: Pain Score 1-3/10) 0RF hydrocodone-acetaminophen 5-325 mg tablet 0.5 - 1 tab PO BID PRN PRN (Reason: pain) zinc acetate 50 mg (zinc) capsule 50 mg PO DAILY ferrous sulfate [Feosol] 325 mg (65 mg iron) tablet 325 mg PO DAILY cyanocobalamin (vitamin B-12) [Vitamin B-12] 1,000 mcg tablet 1,000 mcg PO DAILY ascorbic acid (vitamin C) [C-1000] 1,000 mg tablet 1 g PO DAILY folic acid 1 mg tablet 1 mg PO DAILY Qty: 30 0RF hydrocodone-acetaminophen 7.5-325 mg tablet 1 tab PO TID PRN PRN (Reason: pain) (DME) Elizabeth Figueroa See Rx Instructions .Route .MEDSUPPLY Qty: 1 0RF Rx Instructions: difficulty walking short distance. expires in 5 years (DME) pen needle, diabetic 32 gauge x 1/4 needle See Rx Instructions .ROUTE .MEDSUPPLY Qty: 100 2RF Rx Instructions: As directed levothyroxine 50 mcg tablet 50 mcg PO DAILY Qty: 90 3RF escitalopram oxalate 10 mg tablet 10 mg PO DAILY Qty: 90 3RF Rx Instructions: Take 1/2 tablet for 4 days then increase to 1 tablet. pantoprazole 40 mg tablet,delayed release (DR/EC) See Rx Instructions .ROUTE .COMPLEX Qty: 90 3RF Dose Instruction: TAKE 1 TABLET BY MOUTH ONCE DAILY FOR REFLUX Rx Instructions: TAKE 1 TABLET BY MOUTH ONCE DAILY FOR REFLUX metformin 500 mg tablet 500 mg PO BIDCM Qty: 180 3RF isosorbide mononitrate 30 mg tablet extended release 24 hr 30 mg PO DAILY Qty: 90 3RF pravastatin 20 mg tablet 20 mg PO DAILY Qty: 90 3RF amlodipine 5 mg tablet 5 mg PO DAILY Qty: 90 3RF trazodone 50 mg tablet 50 mg PO QHS PRN PRN (Reason: insomnia) Qty: 60 1RF fludrocortisone 0.1 mg tablet See Rx Instructions PO .COMPLEX Qty: 28 2RF Rx Instructions: Take 1 tablet orally in the morning 6 days/week (Monday, Monday, Monday, , Monday, Monday) clopidogrel 75 mg tablet 75 mg PO DAILY Qty: 90 3RF Primary Care Provider: Marie Maciel Referrals: Marie Maciel MD [Primary Care Provider] - Print Language: Armenian Disposition Disposition: Acute Care Hospital [facility]
[2025-01-07 02:43] LABS: AST(SGOT) 22 U/L (<=37); Alanine Aminotransfer ALT/SGPT < 5 U/L (<=46); Albumin, Serum 4.4 g/dL (3.4-4.8); Alkaline Phosphatase 53 U/L (40-129); Anion Gap 14 (5-15); BUN 23 mg/dL (4-19); BUN/Creat Ratio 13.3 RATIO (10-20); Calcium,Total 9.8 mg/dL (7.6-11.0); Carbon Dioxide 26.2 mmol/L (21.0-32.0); Chloride 95 mmol/L (98-108); Estimated Creatinine Clearance 32.78 ml/min (50-250); Globulin 2.3 g/dL (2.2-4.2); Glucose 124 mg/dL (70-99); Potassium 4.7 mmol/L (3.3-5.1)
--- OUTSIDE RECORDS SUMMARY | 2025-01-07 03:05 | XMS RPT_ITS | CCD ---
Author Organization [facility] Care Team Providers Care Paper Feeder Name Role Phone Saurabh Benites MD Unavailable Dr. Keron Maciel Primary Care Provider Dr. Keron Maciel Referring Provider [phone] Alo LEGAL CONSULTANT, LEGAL CONSULTANT-C Glory Attending Provider Dr. Soham Jones III Referring Provider Dr. Americo Nazario Attending Provider [phone] Austin Mora Attending Provider Dr. Keron Maciel Attending Provider Dr. David Ashton Attending Provider Dr. Keron Maciel Primary Care Provider Dr. Keron Maciel Referring Provider [phone] Alo LEGAL CONSULTANT, LEGAL CONSULTANT-C Glory Attending Provider Dr. Keron Maciel Attending Provider [phone] Keron Maciel Primary Care Provider Dr. Keron Maciel Referring Provider [phone] Hood LEGAL CONSULTANT, LEGAL CONSULTANT-C Casey Attending Provider [phone] Dr. Keron Maciel Attending Provider [phone] Erick Sung Attending Provider Unavailable Dr. Keron Maciel Primary Care Provider Dr. Keron Maciel Referring Provider [phone] Olga PICKARD, NEERAJ Reza Attending Provider Dr. Keron Maciel Primary Care Provider Dr. Keron Maciel Referring Provider Whit LEGAL CONSULTANT, DENISE Vogel Attending Provider [phone] Olga PICKARD, PA Audelia Reza Attending Provider Dr. Keron Maciel Attending Provider Dr. Keron Maciel Primary Care Provider Dr. Keron Maciel Referring Provider Dr. Keron Maciel Attending Provider Dr. Rich Padgett Attending Provider Dr. Austin Mora Attending Provider Keron Maciel MD Primary Care Provider Dr. Keron Maciel Primary Care Provider Dr. Keron Maciel Attending Provider Dr. Keron Maciel Referring Provider Dr. Rich Padgett Attending Provider Bandar PICKARD, PA Bhanu Attending Provider Keron Maciel MD Primary Care Provider Dr. Keron Maciel MD Primary Care Provider Dr. Keron Maciel MD Referring Provider Dr. Rich Padgett MD Attending Provider [phone] Dr. Helio Corrales DO Attending Provider Dr. Helio Corrales DO Emergency Provider Dr. Keron Maciel MD Attending Provider Dr. Keron Maciel MD Primary Care Provider Dr. Keron Maciel MD Attending Provider Dr. Keron Maciel MD Primary Care Provider Dr. Keron Maciel MD Referring Provider TESTRAKE, BARBIE Attending Unavailable JANELL, KERON M Primary Care Unavailable TESTRAKE, BARBIE Attending Unavailable TESTRAKE, BARBIE Referring Unavailable JANELL, KERON M Primary Care Unavailable TESTRAKE, BARBIE Attending Unavailable SELF Referring Unavailable JANELL, KERON M Primary Care Unavailable TESTRAKE, BARBIE Attending Unavailable TESTRAKE, BARBIE Referring Unavailable JANELL, KERON M Primary Care Unavailable Delta BROOKE, Dr. Sepulveda Emergency Provider [phone] [facility] LEGAL CONSULTANT-CZhen Attending Provider Janell GUTIÉRREZ, Dr. Salazar Primary Care Provider [phone] Dr. Helio Corrales DO Attending Provider Savanna BROOKE, Dr. Cadet Emergency Provider Janell GUTIÉRREZ, Dr. Salazar Attending Provider Janell GUTIÉRREZ, Dr. Salazar Referring Provider Dr. Derick Sorenson DO Attending Provider Delta BROOKE, Dr. Sepulveda Emergency Provider [phone] [facility] LEGAL CONSULTANT-CZhen Attending Provider Dr. Tevin Tran DO Emergency Provider Janell, Keron Primary Care Unavailable Derick Sorenson Attending Unavailable Tevin Tran Attending Unavailable Janell, Keron Primary Care Unavailable PoliDavid olea Attending Unavailable Janell, Keron Primary Care Unavailable Janell, Keron Attending Unavailable Janell, Keron Primary Care Unavailable ChristopheGeo Attending Unavailable ChristopheGeo Referring Unavailable Janell, Keron Primary Care Unavailable Janell, Keron Referring Unavailable Janell, Keron Attending Unavailable Janell, Keron Primary Care Unavailable Janell, Keron Referring Unavailable Janell, Keron Attending Unavailable Janell, Keron Primary Care Unavailable Amalia Moncada Attending Unavailable Neri Arana Admitting Unavailable Neri Arana Consulting Unavailable Janell, Keron Primary Care Unavailable Janell, Keron Referring Unavailable Janell, Keron Attending Unavailable Janell, Keron Primary Care Unavailable Janell, Keron Primary Care Unavailable Janell, Keron Referring Unavailable Baddour, Rich Attending Unavailable Janell, Keron Attending Unavailable Janell, Keron Primary Care Unavailable Janell, Keron Attending Unavailable Janell, Kreon Primary Care Unavailable Janell, Keron Attending Unavailable Janell, Keron Primary Care Unavailable Janell, Keron Referring Unavailable Lela Sherman NP Attending Unavailable Janell, Keron Primary Care Unavailable Janell, Keron Referring Unavailable Baddour, Rich Attending Unavailable Janell, Keron Primary Care Unavailable Janell, Keron Referring Unavailable Baddour, Rich Attending Unavailable Janell, Keron Primary Care Unavailable Daphne, Joan Referring Unavailable Daphne, Joan Attending Unavailable Janell, Keron Primary Care Unavailable Janell, Keron Attending Unavailable Janell, Keron Referring Unavailable Janell, Keron Primary Care Unavailable Janell, Keron Referring Unavailable Audelia Nayak Attending Unavail able Janell, Keron Primary Care Unavailable Neri Arana Admitting Unavailable Neri Arana Consulting Unavailable Neri Arana Attending Unavailable Janell, Keron Primary Care Unavailable Amalia Moncada Consulting Unavailable Amalia Moncada Attending Unavailable Patti Steinberg Attending Unavailable Janell, Keron Primary Care Unavailable Janell, Keron Attending Unavailable Janell, Keron Primary Care Unavailable Janell, Keron Attending Unavailable Janell, Keron Referring Unavailable Janell, Keron Primary Care Unavailable Janell, Keron Referring Unavailable Baddour, Rich Attending Unavailable Janell, Keron Primary Care Unavailable Janell, Keron Attending Unavailable Janell, Keron Primary Care Unavailable Janell, Keron Attending Unavailable Janell, Keron Primary Care Unavailable Janell, Keron Referring Unavailable Zhen Simons NP Attending Unavailable Janell, Keron Primary Care Unavailable Janell, Keron Attending Unavailable Janell, Keron Primary Care Unavailable Janell, Keron Primary Care Unavailable Helio Corrales Attending Unavailable Dr. Tevin Tran DO Attending Provider Dr. Patti Steinberg MD Attending Provider Allergies Allergy Classification Reported Allergen(s) Allergy Type Date of Onset Reaction(s) Facility Thiazolidinediones (glitazones) (1 source) pioglitazone Drug Allergy 7 [facility] (4 sources) pioglitazone Drug Allergy 1 Rash & passes out, Rash [facility] Work Phone: (20 sources) Lisinopril Drug Allergy [address] [facility] (20 sources) Losartan Drug Allergy 2 [facility] ([facility]) Metoprolol Drug Allergy 2 [facility] (20 sources) pioglitazone; Translations: [PIOGLITAZONE HCL] Drug Allergy 7 Upset Stomach [facility] (10 sources) Naproxen Drug Allergy [address] [facility] (1 source) Lisinopril Drug Allergy [address] [facility] (1 source) Losartan Drug Allergy [address] [facility] (1 source) Metoprolol Drug Allergy [address] [facility] (1 source) Naproxen Drug Allergy [address] [facility] Medications Current Medications Medication Drug Class(es) Dates Sig (Normalized) Sig (Original) acetaminophen 500 mg oral tablet (20 sources) Start: 02-19-2020 Start: 02-19-2020 take 1000 mg by mout h every six hours as needed Acetaminophen Active 1000 MG PO EVERY 6 HOURS NEEDED February 19, 2020 12:00am Start: 02-10-2020 End: 02-19-2020 Start: 02-10-2020 End: 02-12-2020 take 2 tablets by mouth every six hours as needed for pain Acetaminophen 325 MG tablet Discontinued 650 mg PO EVERY 6 HOURS NEEDED as needed for Pain Or Fever February 10, 2020 12:00am February 12, 2020 3:44pm Start: 02-10-2020 End: 02-19-2020 take 650 mg by mouth every six hours as needed Acetaminophen Discontinued 650 MG PO EVERY 6 HOURS NEEDED February 12, 2020 12:00am February 19, 2020 9:26pm Start: 06-22-2019 End: 02-12-2020 Start: 06-22-2019 End: 02-12-2020 take 1 tablet by mouth every six hours as needed for pain Acetaminophen 500 MG tablet Discontinued 500 mg PO EVERY 6 HOURS NEEDED as needed for Pain Or Fever June 22, 2019 1:00am February 12, 2020 3:44pm acetaminophen 325 mg / HYDRO codone bitartrate 7.5 mg oral tablet (20 sources) Opioid Agonist Start: 11-19-2024 Start: 11-19-2024 Hydrocodone-Ac etaminophen 7.5-325 mg tablet Active 1 {tbl} PO 3 TIMES DAILY NEEDED as needed for pain November 19, 2024 12:00am Start: 06-15-2024 Start: 06-15-2024 Hydrocodone-Ac etaminophen 5-325 mg tablet Active 0.5 - 1 {tbl} PO TWICE DAILY NEEDED as needed for pain June 15, 2024 1:00am Start: 05-20-2024 End: 05-27-2024 Start: 05-20-2024 End: 05-27-2024 take 0.5-1 tablets by mouth twice daily as needed for pain Hydrocodone-Acetaminophen 5-325 mg table t Discontinued 1 {tbl} PO TWICE A DAY as needed for pain 20 7 0 May 20, 2024 May 26, 2024 1:00am May 27, 2024 1:08am Cervical radiculopathy Pain in both upper extremities Radiculopathy, cervical region Pain in right arm Pain in left arm May take 1/2-1 tab twice daily as needed. Start: 02-28-2020 End: 03-02-2020 Start: 02-28-2020 End: 03-02-2020 Hydrocodone-Acetaminophen 1 TABLET tablet Discontinued 1 {tbl} PO EVERY 6 HOURS NEEDED as needed for Pain 12 3 0 February 28, 2020 March 01, 2020 12:00am March 02, 2020 12:02am Pain of left calf Pain in left lower leg Start: 02-28-2020 End: 03-02-2020 take 1 tablet by mouth every six hours as needed Hydrocodone-Acetaminophen Discontinued 1 TABLET PO EVERY 6 HOURS NEEDED 12 3 February 28, 2020 March 02, 2020 12:02am Start: 02-04-2020 End: 02-07-2020 Start: 02-04-2020 End: 02-07-2020 Hydrocodone-Acetaminophen 1 TABLET tablet Discontinued 1 {tbl} PO EVERY 6 HOURS NEEDED as needed for Pain 10 3 0 February 04, 2020 February 06, 2020 12:00am February 07, 2020 12:02am Hip pain Pain in unspecified hip Start: 02-04-2020 End: 02-07-2020 take 1 tablet by mouth every six hours as needed Hydrocodone-Acetaminophen Discontinued 1 TABLET PO EVERY 6 HOURS NEEDED 03 21February 04, 2020 February 07, 2020 12:02am Start: 01-08-2018 End: 04-19-2018 Start: 01-08-2018 End: 04-19-2018 Hydrocodone-Acetaminophen 1 EACH tablet Discontinued 1 - 2 NMA PO 4 TIMES DAILY NEEDED as needed for Pain 12 3 January 08, 2018 12:00am April 19, 2018 2:03pm Sprain of shoulder Unspecified sprain of unspecified shoulder joint, initial encounter Start: 01-08-2018 End: 04-19-2018 Hydrocodone-Acetaminophen Di scontinued 1 - 2 EACH PO 4 TIMES DAILY NEEDED 12 January 08, 2018 12:00am April 19, 2018 2:03pm Start: 05-20-2016 End: 05-31-2016 take 1 tablet by mouth once daily as needed NORCO 5-325 MG TABS One tablet by mouth daily as needed HYDROCODONE-ACETAMINOPHEN [id number] Juliann Levine LPN [id number] 200 actuat albuterol 0.09 mg/actuat metered dose inhaler (20 sources) beta2-Adrenergic Agonist Start: 03-13-2021 take 2-4 puff(s) by inhalation every four hours as needed for wheezing albuterol HFA (PROVENTIL HFA, VENTOLIN HFA) 90 mcg/actuation inhaler Inhale 2-4 Puffs as instructed every 4 hours as needed for wheezing/shortness of breath. 8 g 03/13/2021 Active Start: 03-21-2019 End: 07-23-2019 Albuterol Sulfate 90 mcg/act uation HFA aerosol inhaler Discontinued 2 NMA INHALATION Q4H 06 05March 21, 2019 9:21am July 23, 2019 1:59pm Start: 03-21-2019 End: 07-23-2019 Albuterol Sulfate Discontinu ed 2 INH INHALATION Q4H March 21, 2019 9:21am July 23, 2019 1:59pm Start: 03-21-2019 End: 07-23-2019 Start: 03-21-2019 End: 07-23-2019 take 2.5 mg by inhalation every four hours as needed for wheezing Albuterol Sulfate 2.5 mg /3 mL (0.083 %) solution for nebulization Discontinued 2.5 mg INHALATION Q4H as needed for Sob &/Or Wheezing 180 3 March 21, 2019 12:00am July 23, 2019 1:59pm Start: 12-25-2018 End: 07-23-2019 Start: 12-25-2018 End: 03-21-2019 Albuterol Sulfate Discontinu [...] administer with spacer Start: 05-29-2018 End: 10-17-2018 Start: 05-29-2018 End: 10-17-2018 Albuterol Sulfate 90 mcg/act uation HFA aerosol inhaler Discontinued 2 NMA INHALATION Q4H as needed for shortness of breath 1 May 29, 2018 1:00am October 17, 2018 1:10pm administer with spacer Start: 05-29-2018 End: 10-17-2018 take 1 puff(s) by inhalation every four hours Albuterol Sulfate Discontinued 2 PUFF INHALATION Q4H May 29, 2018 1:00am October 17, 2018 1:10pm administer with spacer Start: 10-15-2015 End: 03-21-2016 VENTOLIN HFA 108 (90 Base) M CG/ACT AERS As needed - 90mcg/inh ALBUTEROL SULFATE [id number] David Ashton MD Comment on above: Inhale 2 Puffs as in structed every 4 hours as needed. Inhale 2-4 Puffs as instructed every 4 hours as needed for wheezing/shortness of breath. Ascorbic Acid (7 sources) Vitamin C Start: 06-15-2024 take 1 tablet by mouth once daily Ascorbic Acid (Vitamin C) (C-1000) 1,000 mg tablet Active 1 g PO DAILY June 15, 2024 1:00am ascorbic acid 113 mg / beta carotene 7160 mg / cuprous oxide 0.4 mg / dl-alpha tocopheryl acetate 100 unt / zinc oxide 17.4 mg oral tablet (20 sources) Vitamin C Start: 12-17-2020 Start: 12-17-2020 take 2 tablets by mo [facility] once daily at dinner Vitamins A,C,C-Ostt-Tiixip (Preservision Areds) 7,160 unit- 113 mg-100 unit tablet Active 2 TABLET PO DAILY December 17, 2020 12:00am administer with AM and PM meals aspirin 81 mg delayed release oral tablet (20 sources) Nonsteroidal Anti-inflammatory Drug Start: 07-16-2015 Start: 07-16-2015 [facility] 1 tablet [facility] daily ASPIRIN 81 MG TABS One tablet by mouth daily ASPIRIN [id number] Audelia Espinoza PA-C Start: 10-28-2010 End: 06-16-2015 take 1 tablet by mouth once daily ASPIRIN 81 MG TABS One tablet by mouth daily ASPIRIN [id number] David Ashton MD Comment on above: Take 81 mg by mouth once daily. capsaicin 0.75 mg/ml topical cream (7 sources) Start: 04-24-2019 capsaicin (ZOSTRIX-HP) 0.075 % topical cream Apply 1 application to affected area three times daily as needed (pain). 30 g 2 04/24/2019 Active Comment on above: Apply 1 application to affected area three times daily as needed (pain). carbidopa 25 mg / levodopa 100 mg oral tablet (20 sources) Aromatic Amino Acid Decarboxylation Inhibitor, Aromatic Amino Acid Start: 08-01-2024 Carbidopa-Levodopa (Sinemet) 25-100 mg tablet Active 2 {tbl} PO THREE TIMES A DAY 180 August 01, 2024 6:14pm Start: 07-13-2021 End: 08-01-2024 take 2 tablets by mouth once daily in the morning, then take 1 tablet by mouth once, then take 2 tablets by mouth once daily Carbidopa-Levodopa (Sinemet) 25-100 mg tablet Discontinued 0 .ROUTE .COMPLEX 150 5 January 04, 2024 9:51am March 28, 2024 6:25pm Take 2 tabs orally every morning, 1 tab every mid-day, and 2 tabs every night Start: 02-25-2021 End: 07-13-2021 Carbidopa-Levodopa (Sinemet) 25-100 mg tablet Discontinued 1 {tbl} PO THREE TIMES A DAY 90 4 February 25, 2021 2:02pm July 13, 2021 11:51am Start: 12-17-2020 End: 08-01-2024 Start: 12-17-2020 End: 02-25-2021 Carbidopa-Levodopa (Sinemet) 25-100 mg tablet Discontinued 1 {tbl} PO TWICE A DAY 60 2 December 17, 2020 12:00am February 25, 2021 2:02pm Start: 07-21-2020 End: 12-17-2020 Start: 07-21-2020 End: 12-17-2020 take 1 tablet by mouth twice daily Carbidopa-Levodopa Discontinued 1 TABLET PO TWICE A DAY July 21, 2020 1:00am December 17, 2020 9:52pm Start: 07-20-2020 End: 12-17-2020 Carbidopa-Levodopa 10-100 mg tablet Discontinued 1 {tbl} PO TWICE A DAY July 21, 2020 1:00am December 17, 2020 9:52pm Comment on above: Take 1 tablet by britt twice daily. cholecalciferol 0.125 mg ora l capsule (20 sources) Vitamin D Start: 06-29-2015 Start: 01-05-2014 End: 01-23-2014 take 1 tablet by mouth once neeraj y Cholecalciferol, Vitamin D3, (VITAMIN D-3) 2,000 unit cap Take 1 tablet by mouth once daily. 125 mcg Active Comment on above: Take 1 tablet by britt th once daily. Compression stockings (10-20) (7 sources) Start: 01-04-2024 Compression stockings (10-20) Active 0 .Route .MEDSUPPLY 2 0 January 04, 2024 9:59am Orthostatic hypotension Orthostatic hypotension orthostatic hypotension (ICD 10: I95.1) As directed Start: 01-04-[address] [place] (10-20) Active 0 .Route .MEDSUPPLY 2 January 04, 2024 9:59am As directed escitalopram 10 mg oral tablet (20 sources) Serotonin Reuptake Inhibitor Start: 06-01-2024 escitalopram oxalate (LEXAPRO) 10 mg tablet 06/01/2024 Active Start: 03-23-2022 End: 03-05-2024 Start: 12-11-2020 End: 03-23-2022 ferrous sulfate 325 mg oral tablet (20 sources) Start: 06-15-2024 take 1 tablet by mouth once daily Ferrous Sulfate (Feosol) 325 mg (65 mg iron) tablet Active 325 mg PO DAILY June 15, 2024 1:00am Start: 02-17-2022 End: 09-28-2022 Start: 02-17-2022 End: 02-25-2022 take 1 tablet by mouth every other day Ferrous Sulfate (Feosol) 325 mg (65 mg iron) tablet Discontinued 325 mg PO .COMPLEX February 17, 2022 12:00am February 25, 2022 1:46pm 325 mg orally every other day; Start: 02-12-2020 End: 02-19-2020 Start: 02-12-2020 End: 02-19-2020 take 1 tablet by mouth twice daily Ferrous Sulfate 325 MG tablet Discontinued 325 mg PO BID@1200,1700 February 12, 2020 5:03pm February 19, 2020 9:27pm supplement Start: 05-19-2016 End: 05-31-2016 take 1 tablet by mouth twice daily FERROUS SULFATE 325 (65 Fe) MG TABS One tablet by mouth twice daily FERROUS SULFATE [id number] Juliann Emily Levine DETENTION OFFICER finasteride 5 mg oral tablet (20 sources) 5-alpha Reductase Inhibitor Start: 05-29-2014 End: 05-31-2016 Comment on above: Take 5 mg by mouth o nce daily. folic acid 1 mg oral tablet (10 sources) Start: 06-15-2024 Handicap Paccard (17 sources) Start: 01-18-[address] Active 0 .Route .MEDSUPPLY January 18, 2021 2:15pm Duration: Lifetime (5 yrs): CAD, debility Start: 01-18-2021 End: 10-18-2022 Handicap Paccard Discontinue d 0 .Route .MEDSUPPLY 1 0 January 18, 2021 12:00am October 18, 2022 1:51pm Duration: Lifetime (5 yrs): CAD, debility Start: 01-18-2021 End: 10-18-2022 Handicap Paccard Discontinue d 0 .Route .MEDSUPPLY January 18, 2021 12:00am October 18, 2022 1:51pm Duration: Lifetime (5 yrs): CAD, debility Start: 01-18-[address] Active 0 .Route .MEDSUPPLY 1 January 18, 2021 12:00am Duration: Lifetime (5 yrs): CAD, debility hydroCHLOROthiazide 12.5 mg oral capsule (7 sources) Thiazide Diuretic Start: 10-28-2019 take 1 capsule by mouth once daily Hydrochlorothiazide 12.5 mg capsule Take 1 capsule by mouth once daily. 30 capsule 12 10/28/2019 Active Comment on above: Take 1 capsule by [facility] once daily. Left AFO (7 sources) Start: 01-04-2024 Left AFO Active 0 .Route .MEDSUPPLY 1 0 January 04, 2024 12:00am Left foot drop Foot drop, left foot left foot drop (ICD 10: M21.372) As directed Start: 01-04-2024 Left AFO Activ e 0 .Route .MEDSUPPLY January 04, 2024 12:00am As directed MEDICATION, NON-DATABASE (7 sources) MEDICATION, NON- DATABASE Zinc 50 mg Active MEDICATION, NON- DATABASE Zinc/vitamin C daily Active metFORMIN hydrochloride 500 mg oral tablet (20 sources) Biguanide Start: 03-19-2024 Start: 12-14-2020 End: 03-19-2024 Start: 12-14-2020 End: 03-19-2024 Metformin 1,000 mg tablet Discontinued 500 mg PO TWICE DAILY WITH MEALS 180 January 01, 2024 10:08am March 19, 2024 1:31pm diabetes Start: 12-14-2020 End: 09-22-2023 take 1 tablet by mouth twice daily at mealtime Metformin 1,000 mg tablet Discontinued 1000 mg PO TWICE DAILY WITH MEALS 180 3 December 26, 2022 12:22pm September 22, 2023 1:15pm diabetes Start: 01-05-2014 End: 12-14-2020 Start: 01-05-2014 End: 12-14-2020 take 1000 mg by mouth twice daily at mealtime Metformin Discontinued 1000 MG PO TWICE DAILY WITH MEALS January 05, 2014 12:00am December 14, 2020 1:46pm Start: 06-25-2013 End: 12-14-2020 take 2 tablets by mouth twice daily at mealtime Metformin 500 MG tablet Discontinued 1000 mg PO TWICE DAILY WITH MEALS January 05, 2014 12:00am December 14, 2020 1:46pm diabetes Start: 06-25-2013 take 1 tablet by britt three times daily METFORMIN HCL 500 MG TABS One tablet by mouth three times daily METFORMIN HCL [id number] David Ashton MD Comment on above: Take 2 tablets by mo [facility] twice daily with meals. insulin isophane, human 70 u nt/ml / insulin, regular, human 30 unt/ml injectable suspension (20 sources) Insulin Start: 06-24-2024 End: 06-24-2024 Start: 06-24-2024 End: 06-24-2024 Insulin Nph And Regular Suze n (Humulin 70/30 U-100 Insulin) 100 unit/mL (70-30) suspension Discontinued 37 U SC TWICE A DAY June 24, 2024 1:00am June 24, 2024 4:17pm Start: 06-15-2024 End: 06-15-2024 Insulin Nph And Regular Suze n (Humulin 70/30 U-100 Insulin) 100 unit/mL (70-30) suspension Discontinued 34 U SC DAILY June 15, 2024 1:00am June 15, 2024 4:03pm Start: 03-14-2023 End: 06-15-2024 Insulin Nph And Regular Suze n 100 unit/mL (70-30) suspension Discontinued 24 U SC AT BEDTIME March 14, 2023 1:51pm June 15, 2024 4:03pm diabetes Start: 03-14-2023 Insulin Nph An d Regular Human Active 50 UNIT SC TWICE A DAY March 14, 2023 1:51pm 34 units in the AM 28 units in the PM and sliding scale Start: 12-17-2020 End: 03-14-2023 Insulin Nph And Regular Suze n 100 unit/mL (70-30) suspension Discontinued 50 U SC TWICE A DAY December 17, 2020 10:27am March 14, 2023 1:52pm diabetes 50 units in the AM 36 units [...] 10-12-2020 Insulin Nph And Regular Suze n 100 unit/mL (70-30) suspension Discontinued 40 U SC WITH DINNER October 17, 2018 1:09pm October 12, 2020 1:15pm diabetes Start: 06-29-2015 End: 06-15-2024 Start: 06-29-2015 End: 10-17-2018 Insulin Nph And Regular Suze n 100 UNITS/ML suspension Discontinued 36 U SC WITH DINNER June 29, 2015 1:00am October 17, 2018 1:10pm Start: 06-29-2015 End: 10-12-2020 Insulin Nph And Regular Suze n 100 UNITS/ML suspension Discontinued 50 U SC WITH BREAKFAST June 29, 2015 1:00am October 12, 2020 1:16pm diabetes Start: 06-29-2015 End: 12-17-2020 Insulin Nph And Regular Suze n 100 unit/mL (70-30) suspension Discontinued 50 U SC WITH BREAKFAST October 12, 2020 1:13pm December 17, 2020 10:28am diabetes 50 units in the AM 36 units in the PM and sliding scale Start: 06-29-2015 End: 10-17-2018 Insulin Nph And Regular Suze n Discontinued 36 UNITS SC WITH DINNER June 29, 2015 1:00am October 17, 2018 1:10pm Start: 05-29-2014 take 50 [IU] by subc utaneous injection in the morning, then take 36 [IU] by subcutaneous injection in the evening NOVOLIN 70/30 (70-30) 100 UNIT/ML SUSP 50 units sq in the am and 36 units sq in the pm INSULIN ISOPHANE & REGULAR [id number] David Ashton MD Start: 05-29-2014 take 35 [IU] by subc utaneous injection in the morning, then take 25 [IU] by subcutaneous injection in the evening NOVOLIN 70/30 (70-30) 100 UNIT/ML SUSP 35 units sq in the am and 25 units sq in the pm INSULIN ISOPHANE & REGULAR [id number] David Ashton MD Comment on above: 48 units SQ ac break fast and 40 units SQ ac supper Pen Needle, Diabetic (20 sources) Start: 12-25-2020 [...] 12:00am December 25, 2020 10:38am As directed predniSONE 10 mg oral tablet (11 sources) Corticosteroid Start: 03-13-2021 predniSONE (DE LTASONE) 10 mg tablet Take 4 tabs daily [...] days, then 1 for 3 days. PREDNISONE [id number] Lela Sherman CNP Comment on above: Take 4 tabs daily fo r 3 days, then 2 tabs daily for 3 days, then 1 tab daily for 3 days with food. 12 hr ranolazine 500 mg exte nded release oral tablet (20 sources) Anti-anginal Start: 01-06-2025 Start: 12-23-2024 End: 01-06-2025 Start: 05-20-2024 take 1 tablet by britt th every twelve hours ranolazine ER (RANEXA) 500 mg 12 hr tablet Take 1 tablet by mouth every 12 hours. 05/20/2024 Active Start: 02-25-2022 End: 12-23-2024 tamsulosin hydrochloride 0.4 mg oral capsule (20 sources) alpha-Adrenergic Saul Start: 09-17-2020 take 1 capsule by mouth once daily at bedtime tamsulosin (FLOMAX) 0.4 mg Indications: Renal colic on left side Take 1 capsule by mouth daily at bedtime. 90 capsule 3 09/17/2020 Active Start: 10-28-2010 End: 06-16-2015 Comment on above: Take 1 capsule by mo uth daily at bedtime. traZODone hydrochloride 50 mg oral tablet (20 sources) Serotonin Reuptake Inhibitor Start: take 1 tablet by mouth at bedtime as needed Trazodone 50 mg tablet Active 50 mg PO AT BEDTIME NEEDED as needed for insomnia 60 October 03, 2024 12:14pm Start: 06-15-2024 End: 10-03-2024 Start: 06-15-2024 End: 10-03-2024 Trazodone 50 mg tablet Disco ntinued 25 mg PO AT BEDTIME NEEDED as needed for insomnia 30 July 03, 2024 10:36am October 03, 2024 12:15pm Start: 03-23-2022 End: 05-20-2024 Start: 03-23-2022 End: 05-20-2024 Trazodone 50 mg tablet Disco ntinued 25 mg PO AT BEDTIME as needed for sleep 30 2 July 24, 2023 4:01pm May 20, 2024 12:19pm Start: 03-23-2022 End: 07-24-2023 take 25 mg by mouth at bedtime Trazodone Active 25 MG PO AT BEDTIME July 24, 2023 4:01pm vit A/vit C/vit E/zinc/coppe r (PRESERVISION AREDS ORAL) (7 sources) take 1 tablet by britt th once daily vit A/vit C/vit E/zinc/copper (PRESERVISION AREDS ORAL) Take 1 tablet by mouth once daily. Active take 1 tablet by mouth once neeraj y vit A/vit C/vit E/zinc/copper (PRESERVISION AREDS ORAL) Take 1 tablet by mouth once daily. 0 Active Comment on above: Take 1 tablet by britt th once daily. vitamin b12 1 mg oral tablet (16 sources) Vitamin B12 Start: 06-15-2024 Start: 01-18-2021 End: 01-18-2021 inject 1000 ug by intramuscular injection once cyanocobalamin (vitamin B-12) 1,000 mcg/mL injection solution Discontinued 1000 MCG IM ONCE 1 January 18, 2021 2:57pm January 18, 2021 3:07pm zinc acetate 50 mg oral caps ule (10 sources) Start: 06-15-2024 (20 sources) Start: 06-15-2024 Start: 01-04-2024 Start: 01-04-2024 Start: 01-04-2024 End: 01-04-2024 Start: 01-18-2021 End: 10-18-2022 Start: 12-25-2020 Start: 12-25-2020 End: 12-25-2020 Start: 11-19-2020 End: 01-18-2021 Start: 10-14-2020 Start: 10-14-2020 End: 10-14-2020 Completed/Discontinued Medications Medication Drug Class(es) Dates Sig (Normalized) Sig (Original) amLODIPine 5 mg oral tablet (20 sources) Dihydropyridine Calcium Channel Saul Start: 05-14-2018 End: 09-27-2024 amoxicillin 500 mg oral capsule (11 sources) Penicillin-class Antibacterial Start: 01-23-2023 End: 02-02-2023 Arm Brace (Wrist Brace) misc (17 sources) Start: 11-19-2020 End: 01-18-2021 Arm Brace (Wrist Brace) misc Discontinued 0 .ROUTE .MEDSUPPLY 1 November 19, 2020 1:55pm January 18, 2021 1:38pm As directed Start: 11-19-2020 End: 01-18-2021 Arm Brace (Wrist Brace) misc Discontinued 0 .ROUTE .MEDSUPPLY 1 0 November 19, 2020 12:00am January 18, 2021 1:38pm As directed Start: 11-19-2020 End: 01-18-2021 Arm Brace (Wrist Brace) misc Discontinued 0 .ROUTE .MEDSUPPLY November 19, 2020 12:00am January 18, 2021 1:38pm As directed atorvastatin 20 mg oral tablet (4 sources) HMG-CoA Reductase Inhibitor Start: 06-21-2013 take 1 tablet by mouth once daily LIPITOR 20 MG TABS One tablet by mouth daily ATORVASTATIN CALCIUM [id number] Ania Sheridan RN Start: 10-28-2010 take 1 tablet by britt th once daily LIPITOR 10 MG TABS One tablet by mouth daily ATORVASTATIN CALCIUM [id number] Paula Bazzi azithromycin 500 mg oral tab let (18 sources) Macrolide Antimicrobial Start: 12-10-2024 End: 12-30-2024 Start: 11-25-2024 End: 12-09-2024 Start: 12-07-2016 End: 01-20-2017 AZITHROMYCIN 250 MG TABS 2 t ablets by mouth today and then 1 tablet daily for the next 4 days AZITHROMYCIN [id number] Audelia Espinoza PA-C benzonatate 100 mg oral caps ule (11 sources) Non-narcotic Antitussive Start: 08-10-2023 End: 12-19-2023 Start: 08-10-2023 take 200 mg by mouth three times daily Benzonatate Active 200 MG PO THREE TIMES A DAY August 10, 2023 1:00am betamethasone 0.5 mg/ml / clotrimazole 10 mg/ml topical cream (20 sources) Azole Antifungal, Corticosteroid Start: 10-13-2021 End: 10-23-2021 Start: 10-13-2021 End: 10-23-2021 Clotrimazole-Betamethasone 1 -0.05 % cream Discontinued 1 NMA TOPICAL TWICE A DAY 45 October 13, 2021 12:00am October 22, 2021 12:00am October 23, 2021 12:06am Start: 10-13-2021 End: 10-23-2021 Clotrimazole-Betamethasone D iscontinued 1 APPLIC TOPICAL TWICE A DAY 45 October 13, 2021 12:00am October 23, 2021 12:06am 120 actuat budesonide 0.08 mg/actuat / formoterol fumarate 0.0045 mg/actuat metered dose inhaler (4 sources) Corticosteroid, beta2-Adrenergic Agonist Start: 02-09-2016 End: 03-21-2016 SYMBICORT 80-4.5 MCG/ACT AERO Take 2 puffs twice daily BUDESONIDE-FORMOTEROL FUMARATE [id number] Americo Nazario DO cefuroxime 500 mg oral tablet (15 sources) Cephalosporin Antibacterial Start: 12-10-2024 End: 12-20-2024 Start: 11-25-2024 End: 12-02-2024 cephalexin 500 mg oral capsu le (20 sources) Cephalosporin Antibacterial Start: 11-20-2024 End: 12-09-2024 Start: 11-20-2023 End: 12-19-2023 Start: 11-20-2023 End: 12-19-2023 take 1 capsule by mouth twice daily Cephalexin 500 mg capsule Discontinued 500 mg PO TWICE A DAY 14 0 November 20, 2023 12:00am December 19, 2023 4:33pm 12 hr chlorpheniramine polistirex 1.6 mg/ml / HYDROcodone polistirex 2 mg/ml extended release suspension (4 sources) Histamine-1 Receptor Antagonist, Opioid Agonist Start: 12-07-2016 End: 01-20-2017 take 5 mL by mouth every twelve hours TUSSIONEX PENNKINETIC ER 10-8 MG/5ML SUER 1 tsp q12h as needed HYDROCOD POLST-CHLORPHEN POLST [id number] Audelia Espinoza PA-C GLUCOSAMINE-CHONDROITI N CAPS (4 sources) Start: 02-25-2011 take 2 tablets by mouth once daily GLUCOSAMINE-CHONDROI TIN CAPS Two tablets by mouth daily GLUCOSAMINE-CHONDROI TIN CAPS [id number] Paula Bazzi Start: 02-25-2011 End: 06-23-2011 take 2 tablets by mouth once daily GLUCOSAMINE-CHONDROITIN CAPS Two tablets by mouth daily GLUCOSAMINE-CHONDROITIN CAPS [id number] Estrella August RN citalopram 10 mg oral tablet (20 sources) Serotonin Reuptake Inhibitor Start: 07-23-2019 End: 12-11-2020 Start: 07-23-2019 End: 07-21-2020 take 1 tablet by mouth once daily Citalopram 10 mg tablet Discontinued 10 mg PO DAILY July 23, 2019 1:00am July 21, 2020 2:10pm depression Comment on above: Take 1 tablet by britt th once daily. clopidogrel 75 mg oral tablet (20 sources) P2Y12 Platelet Inhibitor Start: 07-02-2015 End: 11-08-2024 Comment on above: Take 1 tablet by britt th once daily. Compression stockings (7 sources) Start: 01-04-2024 End: 01-04-2024 Compression stockings Discontinued 0 .Route .MEDSUPPLY 2 0 January 04, 2024 12:00am January 04, 2024 9:59am Orthostatic hypotension Orthostatic hypotension orthostatic hypotension (ICD 10: I95.1) As directed Start: 01-04-2024 End: 01-04-2024 Compression stockings Discon tinued 0 .Route .MEDSUPPLY 2 January 04, 2024 12:00am January 04, 2024 9:59am As directed cyclobenzaprine hydrochlorid e 5 mg oral tablet (10 sources) Muscle Relaxant Start: 05-20-2024 End: 06-24-2024 dapagliflozin 5 mg oral tabl et (20 sources) Sodium-Glucose Cotransporter 2 Inhibitor Start: 04-12-2021 End: 05-04-2021 dextromethorphan hydrobromid e 2 mg/ml / guaiFENesin 40 mg/ml oral suspension (11 sources) Uncompetitive S-ubktjs-A-aspartate Receptor Antagonist, Sigma-1 Agonist Start: 08-10-2023 End: 06-15-2024 Start: 08-10-2023 End: 06-15-2024 take 1 mL by mouth every eight hours as needed for cough Dextromethorphan-Guaifenesin (Adult [facility]in Dm Max) 10-200 mg/5 mL liquid Discontinued 10 mL PO Q8H as needed for cough 237 0 August 10, 2023 1:00am June 15, 2024 2:56am Start: 08-10-2023 take 1 mL by mouth every eight hours Dextromethorphan-Guaifenesin (Adult [facility]Tussin Dm Max) 10-200 mg/5 mL liquid Active 10 ML PO Q8H 237 August 10, 2023 1:00am docusate sodium 50 mg / elizabeth osides, [facility] 8.6 mg oral tablet (20 sources) Start: 02-12-2020 End: 02-19-2020 Start: 02-12-2020 End: 02-19-2020 Sennosides-Docusate Sodium 1 TABLET tablet Discontinued 2 {tbl} PO TWICE DAILY NEEDED as needed for Constipation 0 February 12, 2020 12:00am February 19, 2020 9:26pm Start: 02-12-2020 End: 02-19-2020 take 2 tablets by mouth twice daily as needed Sennosides-Docusate Sodium Discontinued 2 TABLET PO TWICE DAILY NEEDED February 12, 2020 12:00am February 19, 2020 9:26pm doxycycline hyclate 100 mg o ral capsule (20 sources) Tetracycline-class Drug Start: 12-21-2024 End: 12-30-2024 Start: 07-23-2019 End: 09-27-2019 Start: 07-23-2019 End: 09-27-2019 Doxycycline Monohydrate 100 mg capsule Discontinued PO July 23, 2019 1:00am September 27, 2019 11:09am Start: 07-23-2019 End: 09-27-2019 Doxycycline Monohydrate Disc ontinued PO July 23, 2019 1:00am September 27, 2019 11:09am dutasteride 0.5 mg oral capsule (2 sources) 5-alpha Reductase Inhibitor Start: 05-29-2014 take 1 tablet by mouth once daily AVODART 0.5 MG CAPS One tablet by mouth daily DUTASTERIDE [id number] David Ashton MD fludrocortisone acetate 0.1 mg oral tablet (20 sources) Start: 01-04-2024 End: 10-23-2024 Start: 01-04-2024 End: 03-28-2024 take 1 tablet by mouth three times weekly Fludrocortisone 0.1 mg tablet Discontinued 0.1 mg PO 3 TIMES A WEEK 14 5 January 04, 2024 12:00am March 28, 2024 6:25pm 60 actuat fluticasone propionate 0.23 mg/actuat / salmeterol 0.021 mg/actuat metered dose inhaler (16 sources) Corticosteroid, beta2-Adrenergic Agonist Start: 02-08-2016 End: 02-08-2016 ADVAIR DISKUS 250-50 MCG/DOSE AEPB Take 2 puffs every 12 hours FLUTICASONE-SALMETEROL [id number] Americo Nazario DO Start: 02-08-2016 End: 03-21-2016 ADVAIR HFA 230-21 MCG/ACT AE RO Take 1 puff twice daily FLUTICASONE-SALMETEROL [id number] Americo Nazario DO Start: 02-08-2016 End: 02-08-2016 ADVAIR HFA 230-21 MCG/ACT AE RO 2 puffs twice daily FLUTICASONE-SALMETEROL [id number] Americo Nazario DO Start: 10-15-2015 End: 02-08-2016 ADVAIR DISKUS 100-50 MCG/DOS E AEPB Take as Directed FLUTICASONE-SALMETEROL [id number] Americo Nazario DO furosemide 40 mg oral tablet (20 sources) Loop Diuretic Start: 08-31-2015 End: 12-23-2024 Start: 08-31-2015 FUROSEMIDE 40 MG TABS One tablet by mouth twice daily X 3 days then once daily FUROSEMIDE [id number] Estrella August RN Start: 08-06-2015 End: 08-27-2015 take 1 tablet by mouth once daily LASIX 40 MG TABS One tablet by mouth daily FUROSEMIDE [id number] Audelia Espinoza PA-C Start: 02-25-2011 End: 06-21-2012 take 1 tablet by mouth once daily LASIX 40 MG TABS One tablet by mouth daily FUROSEMIDE [id number] David Ashton MD Comment on above: Take 40 mg by mouth once daily. glimepiride 2 mg oral tablet (2 sources) Sulfonylurea Start: 06-25-19 take 1 tablet by mouth twice daily GLIMEPIRIDE 2 MG TABS One tablet by mouth twice daily GLIMEPIRIDE [id number] David Ashton MD glipiZIDE 5 mg oral tablet (4 sources) Sulfonylurea Start: 06-25-19 14 End: 06-16-20 15 take 1 tablet by mouth once daily GLIPIZIDE 5 MG TABS One tablet by mouth daily GLIPIZIDE [id number] Audelia Espinoza PA-C Handi cap Placard (20 sources) Start: 10-15-19 21 Handi cap Placard Active 0 .Route .MEDSUPPLY 1 0 October 14, 2020 2:29pm Cardiomyopathy Cardiomyopathy, unspecified difficulty walking short distance. expires in 5 years Start: 10-14-2020 Handi cap Plac sunil Active 0 .Route .MEDSUPPLY 1 October 14, 2020 2:29pm difficulty walking short distance. expires in 5 years Start: 10-14-2020 End: 10-14-2020 Handi cap Placard Discontinu ed 0 .Route .MEDSUPPLY 1 October 14, 2020 1:21pm October 14, 2020 2:30pm difficulty walking short distance. expires in 5 years Start: 10-14-2020 End: 10-14-2020 Handi cap Placard Discontinu ed 0 .Route .MEDSUPPLY 1 0 October 14, 2020 12:00am October 14, 2020 2:30pm Cardiomyopathy Cardiomyopathy, unspecified difficulty walking short distance. expires in 5 years Start: 10-14-2020 End: 10-14-2020 Handi cap Placard Discontinu ed 0 .Route .MEDSUPPLY 1 October 14, 2020 12:00am October 14, 2020 2:30pm difficulty walking short distance. expires in 5 years HANDICAP PLACARD (2 sources) Start: 08-27-[address] Lifetime duration DX: CAD HANDICAP PLACSUNIL Espinoza PA-C insulin detemir 100 unt/ml injectable solution (2 sources) Insulin Analogue Start: 05-29-2014 LEVEMIR 100 UNIT/ML SOLN Take as directed INSULIN DETEMIR [id number] David Ashton MD insulin glargine 100 unt/ml injectable solution (4 sources) Insulin Analogue Start: 10-28-2010 End: 06-21-2012 take 30 [IU] by subcutaneous injection at bedtime LANTUS 100 UNIT/ML SOLN 30 units SQ at bedtime INSULIN GLARGINE [id number] Paula Bazzi 3 ml insulin lispro 100 unt/ml pen injector (20 sources) Insulin Analogue Start: 02-10-2020 End: 02-19-2020 Start: 02-10-2020 End: 02-19-2020 Insulin Lispro 100 UNIT/ML i nsulin pen Discontinued 0 U SQ 3 TIMES DAILY WITH MEALS February 10, 2020 12:00am February 19, 2020 9:27pm DM Please contact the information source for Protocol details. Start: 02-10-2020 End: 02-19-2020 Insulin Lispro Discontinued 0 UNIT SQ 3 TIMES DAILY WITH MEALS February 10, 2020 12:00am February 19, 2020 9:27pm Start: 10-28-2010 End: 06-21-2012 HUMALOG 100 UNIT/ML SOLN SQ per sliding scale INSULIN LISPRO (HUMAN) [id number] Paula Bazzi INSULIN GLULISINE SOLN (6 sources) Insulin Analogue Start: 06-21-2012 APIDRA SOLN P er sliding scale twice daily if blood glucose is greater than 140 INSULIN GLULISINE SOLN [id number] David Ashton MD Start: 06-21-2012 End: 06-25-2013 APIDRA SOLN Per sliding scal e twice daily if blood glucose is greater than 140 INSULIN GLULISINE SOLN [id number] David Ashton MD Start: 02-25-2011 APIDRA SOLN Pe r sliding scale INSULIN GLULISINE SOLN [id number] Paula Bazzi 24 hr isosorbide mononitrate 30 mg extended release oral tablet (20 sources) Nitrate Vasodilator Start: 04-19-2018 End: 04-01-2024 Comment on above: Take 1 tablet by britt th once daily. lisinopril 10 mg oral tablet (6 sources) Angiotensin Converting Enzyme Inhibitor Start: 05-29-2014 End: 02-23-2017 take 1 tablet by mouth once daily LISINOPRIL 10 MG TABS One tablet by mouth daily LISINOPRIL [id number] David Ashton MD loratadine 10 mg oral capsule (20 sources) Start: 03-21-2019 End: 03-22-2019 losartan potassium 100 mg oral tablet (20 sources) Angiotensin 2 Receptor Saul Start: 07-21-2020 End: 01-23-2023 Start: 05-20-2017 End: 09-07-2018 Start: 05-20-2017 End: 09-07-2018 Losartan 50 mg tablet Discon tinued 25 mg PO daily 45 3 August 31, 2018 4:16pm September 07, 2018 2:05pm Start: 05-20-2017 End: 08-31-2018 take 1 tablet by mouth once daily Losartan 50 mg tablet Discontinued 50 mg PO daily 90 3 August 31, 2018 8:33am August 31, 2018 4:17pm Start: 02-23-2017 take 1 tablet by britt th once daily LOSARTAN POTASSIUM 50 MG TABS One tablet by mouth daily LOSARTAN POTASSIUM [id number] David Ashton MD Comment on above: Take 1 tablet by britt th once daily. magnesium hydroxide 80 mg/ml oral suspension (20 sources) Start: 02-12-2020 End: 02-19-2020 Start: 02-12-2020 End: 02-19-2020 take 1 mL by mouth once daily as needed for constipation Magnesium Hydroxide 30 ML suspension Discontinued 30 mL PO DAILY NEEDED as needed for Constipation 0 February 12, 2020 12:00am February 19, 2020 9:27pm Start: 02-12-2020 End: 02-19-2020 take 1 mL by mouth once daily as needed Magnesium Hydroxide Discontinued 30 ML PO DAILY NEEDED February 12, 2020 12:00am February 19, 2020 9:27pm magnesium oxide 400 mg oral tablet (4 sources) Start: 06-21-2012 End: 06-25-2013 take 1 tablet by mouth three times daily MAGNESIUM OXIDE 400 MG TABS One tablet by mouth three times daily MAGNESIUM OXIDE [id number] David Ashton MD melatonin 10 mg sublingual tablet (20 sources) Start: 02-19-2020 End: 01-18-2021 Start: 02-19-2020 End: 01-18-2021 take 1 tablet by mouth at bedtime Melatonin 10 MG tablet Discontinued 10 mg PO AT BEDTIME 0 February 19, 2020 12:00am January 18, 2021 1:39pm meloxicam 15 mg oral tablet (20 sources) Nonsteroidal Anti-inflammatory Drug Start: 05-14-2018 End: 06-13-2018 Start: 05-14-2018 End: 06-13-2018 take 7.5 mg by mouth twice daily Meloxicam Discontinued 7.5 MG PO TWICE A DAY May 14, 2018 1:00am June 13, 2018 10:55am metoprolol tartrate 25 mg oral tablet (8 sources) beta-Adrenergic Saul Start: 07-02-2015 End: 10-15-2015 take 0.5 tablet by mouth once daily METOPROLOL TARTRATE 25 MG TABS 1/2 tablet by mouth daily HOLD METOPROLOL TARTRATE [id number] David Ashton MD Start: 07-02-2015 take 0.5 tablet by out twice daily METOPROLOL TARTRATE 25 MG TABS 1/2 tablet by mouth twice daily METOPROLOL TARTRATE [id number] Estrella August RN naproxen 500 mg oral tablet (20 sources) Nonsteroidal Anti-inflammatory Drug Start: 04-19-2018 End: 06-13-2018 Start: 03-11-2016 End: 09-06-2017 Start: 03-11-2016 End: 09-06-2017 take 440 mg by mouth twice daily Naproxen Sodium Discontinued 440 MG PO TWICE A DAY March 11, 2016 12:00am September 06, 2017 1:34pm Start: 06-25-2013 take 2 tablets by mo [facility] once daily ALEVE 220 MG TABS Two tablets by mouth daily NAPROXEN SODIUM [id number] David Ashton MD Start: 06-21-2012 take 1 tablet by britt twice daily NAPROSYN 500 MG TABS One tablet by mouth twice daily NAPROXEN [id number] David Ashton MD Start: 10-28-2010 ALEVE 220 MG T ABS PRN NAPROXEN SODIUM [id number] David Ashton MD oxyCODONE hydrochloride 5 mg oral tablet (20 sources) Opioid Agonist Start: 02-10-2020 End: 02-19-2020 Start: 01-05-2014 End: 01-23-2014 pantoprazole 40 mg delayed r elease oral tablet (20 sources) Proton Pump Inhibitor Start: 06-16-2015 End: 03-05-2024 Start: 10-28-2010 End: 12-04-2014 take 1 tablet by mouth once daily PROTONIX 40 MG (PANTOPRAZOLE SODIUM) One tablet by mouth daily PROTONIX 40 MG (PANTOPRAZOLE SODIUM) Audelia Espinoza PA-C Comment on above: Take 1 tablet by britt th once daily. polysaccharide iron complex 150 mg oral capsule (20 sources) Start: 02-19-2020 End: 07-21-2020 potassium,chelated 99 mg oral tablet (8 sources) Start: 05-29-2014 End: 06-16-2015 take 1 tablet by mouth once daily as needed POTASSIUM 99 MG TABS One tablet by mouth daily as needed POTASSIUM [id number] David Ashton MD Start: 02-25-2011 End: 06-21-2012 take 2 tablets by mouth once daily POTASSIUM 99 MG TABS Two tablets by mouth daily POTASSIUM [id number] Paula Bazzi pravastatin sodium 20 mg ora l tablet (20 sources) HMG-CoA Reductase Inhibitor Start: 06-21-2013 End: 07-23-2024 Comment on above: Take 1 tablet by britt th once daily. psyllium 3400 mg powder for oral suspension (20 sources) Start: 02-12-2020 End: 02-19-2020 Start: 02-12-2020 End: 02-19-2020 take 1 dose by mouth once daily as needed Psyllium Husk 1 PACKET packet Discontinued 1 NMA PO DAILY NEEDED as needed for Constipation 0 February 12, 2020 12:00am February 19, 2020 9:27pm Start: 02-12-2020 End: 02-19-2020 Psyllium Husk (Aspartame) Discontinued 1 PACKET PO DAILY NEEDED February 12, 2020 12:00am February 19, 2020 9:27pm sennosides, fci 8.6 mg oral tablet (20 sources) Start: 02-10-2020 End: 02-12-2020 Start: 02-10-2020 End: 02-12-2020 Sennosides 1 TABLET tablet Discontinued 2 {tbl} PO DAILY NEEDED as needed for STOOL SOFTNER February 10, 2020 12:00am February 12, 2020 3:44pm Start: 02-10-2020 End: 02-12-2020 take 2 tablets by mouth once daily as needed Sennosides Discontinued 2 TABLET PO DAILY NEEDED February 10, 2020 12:00am February 12, 2020 3:44pm levothyroxine sodium 0.05 mg oral tablet (20 sources) l-Thyroxine Start: 02-25-2011 End: 02-01-2024 Comment on above: Take 1 tablet by britt once daily. traMADol hydrochloride 50 mg oral tablet (20 sources) Opioid Agonist Start: 05-20-2024 End: 06-15-2024 Start: 12-28-2023 End: 01-27-2024 Start: 12-28-2023 End: 01-27-2024 take 1 tablet by mouth every twelve hours as needed for pain Tramadol 50 mg tablet Discontinued 50 mg PO Q12H as needed for Pain Score 4-5/10 30 30 0 December 28, 2023 1:57pm January 26, 2024 12:00am January 27, 2024 12:08am Start: 07-24-2023 End: 08-23-2023 Start: 07-24-2023 End: 08-23-2023 take 1 tablet by mouth every twelve hours as needed for pain Tramadol 50 mg tablet Discontinued 50 mg PO Q12H as needed for Pain Score 4-5/10 30 30 0 July 24, 2023 4:02pm August 22, 2023 1:00am August 23, 2023 1:06am Start: 02-19-2020 End: 02-26-2020 Start: 02-19-2020 End: 02-26-2020 take 1 tablet by mouth every six hours as needed for pain Tramadol 50 MG tablet Discontinued 50 mg PO EVERY 6 HOURS NEEDED as needed for Pain Score 4-5/10 28 7 0 February 19, 2020 12:00am February 25, 2020 12:00am February 26, 2020 12:02am valsartan 80 mg oral tablet (4 sources) Angiotensin 2 Receptor Saul Start: 10-28-2010 End: 05-29-2014 take 1 tablet by mouth once daily DIOVAN 80 MG TABS One tablet by mouth daily VALSARTAN [id number] Paula Bazzi vitamin d 1000 unt oral tablet (4 sources) Start: 10-28-2010 take 1 tablet by mouth twice daily VITAMIN D 1000 UNIT TABS One tablet by mouth twice daily CHOLECALCIFEROL [id number] Paula Bazzi Start: 10-28-2010 take 5 tablets by mouth once V ITAMIN D 1000 UNIT TABS 5000 IU One tablet by mouth daily CHOLECALCIFEROL [id number] David Ashton MD Problems Active Problems Problem Classification Problem Date Documented Date Episodic/Chronic Abdominal pain (20 sources) Right flank pain; Translations: [Unspecified abdominal pain] Onset: 08-03-2006 Resolved: 12-22-2014 05-09-2017 Episodic Acquired foot deformities (13 sources) Foot-drop; Translations: [Foot drop, left foot] 01-04-2024 Episodic Acute and unspecified renal failure (11 sources) [id number] renal failure; Translations: [Acute kidney failure, unspecified] 06-15-2024 Episodic Acute bronchitis (12 sources) Acute bronchitis; Translations: [Acute bronchitis, unspecified] 08-11-2023 Episodic Anxiety disorders (20 sources) Anxiety; Translations: [Anxiety disorder, unspecified] Onset: 06-28-2019 12-17-2020 Chronic Appendicitis and other appendiceal conditions (20 sources) Appendicitis; Translations: [Unspecified appendicitis] Onset: 05-09-2016 Resolved: 03-26-2018 07-03-2019 Episodic Calculus of urinary tract (7 sources) Kidney stone; Translations: [Calculus of kidney] 02-24-2005 Episodic Cardiac dysrhythmias (20 sources) Ventricular premature beats; Translations: [Ventricular premature depolarization] 02-04-2020 Chronic Cardiac dysrhythmias (20 sources) Palpitations; Translations: [Palpitations] Onset: 05-29-2014 05-29-2014 Episodic Chronic kidney disease (20 sources) Chronic kidney disease stage 3; Translations: [Stage 3 chronic kidney disease] Onset: 12-09-2024 Chronic Chronic kidney disease (1 source) Chronic kidney disease; Translations: [Chronic kidney disease, stage 3a] Onset: 12-31-2024 Complications of surgical procedures or medical care (14 sources) Insulin lipohypertrophy; Translations: [Other complications following infusion, transfusion and therapeutic injection, initial encounter] 04-21-2022 Episodic Conduction disorders (20 sources) Right bundle branch block AND left anterior fascicular block; Translations: [Bifascicular block] Onset: 06-17-2024 Chronic Coronary atherosclerosis and other heart disease (20 sources) Coronary arteriosclerosis; Translations: [Atherosclerotic heart disease of [place] coronary artery without angina pectoris] Onset: 10-28-2010 Resolved: 07-02-2015 07-02-2015 Chronic Coronary atherosclerosis and other heart disease (14 sources) Presence of coronary angioplasty implant and graft; Translations: [Percutaneous transluminal coronary angioplasty status] Onset: 07-01-2015 08-06-2015 Episodic Deficiency and other anemia (5 sources) Iron deficiency anemia due to blood loss; Translations: [Iron deficiency anemia secondary to blood loss (chronic)] Onset: 04-15-2016 Resolved: 04-15-2016 04-15-2016 Chronic Deficiency and other anemia (20 sources) Iron deficiency anemia; Translations: [Iron deficiency anemia, unspecified] 07-18-2020 Episodic Deficiency and other anemia (2 sources) Iron deficiency anemia, unspecified; Translations: [Iron deficiency anemia, unspecified] Episodic Deficiency and other anemia (10 sources) Chronic anemia; Translations: [Anemia, unspecified] 12-27-2023 Episodic Diabetes mellitus with complications (20 sources) Type 2 diabetes mellitus in obese; Translations: [Type 2 diabetes mellitus with other specified complication] Onset: 03-26-2018 10-10-2022 Chronic Diabetes mellitus without complication (20 sources) Diabetes mellitus; Translations: [Type 2 diabetes mellitus without complications] Onset: 12-31-2013 12-31-2013 Chronic Diabetes mellitus without complication (1 source) Hyperglycemia, unspecified; Translations: [Hyperglycemia, unspecified] Onset: 12-09-2024 Episodic Disorders of lipid metabolism (20 sources) Hyperlipidemia; Translations: [Hyperlipidemia, unspecified] Onset: 04-26-2011 06-14-2012 Chronic E Codes: Fall (20 sources) Fall; Translations: [Unspecified fall, initial encounter] Onset: 06-06-2024 07-18-2020 Episodic Esophageal disorders (19 sources) Gastroesophageal reflux disease; Translations: [Gastro-esophageal reflux disease without esophagitis] Onset: 04-19-2010 Resolved: 04-15-2016 02-24-2005 Chronic Essential hypertension (20 sources) Hypertensive disorder; Translations: [Essential hypertension] Onset: 06-25-2013 06-25-2013 Chronic Fever of unknown origin (1 source) Fever, unspecified; Translations: [Fever, unspecified] Onset: 11-25-2024 Episodic Heart valve disorders (2 sources) Nonrheumatic tricuspid (valve) insufficiency; Translations: [Nonrheumatic tricuspid (valve) insufficiency] Onset: 10-15-2015 10-15-2015 Chronic Hyperplasia of prostate (7 sources) Benign prostatic hypertrophy with outflow obstruction; Translations: [Benign prostatic hyperplasia with lower urinary tract symptoms] Onset: 07-29-2008 07-29-2008 Chronic Malaise and fatigue (20 sources) Asthenia; Translations: [Weakness] Onset: 11-25-2024 07-18-2020 Episodic Mycoses (20 sources) Dermal mycosis; Translations: [Superficial mycosis, unspecified] Onset: 12-13-2024 Episodic Nonspecific chest pain (20 sources) Precordial pain; Translations: [Chest pain] Onset: 10-28-2010 Resolved: 07-02-2015 10-28-2010 Episodic Nutritional deficiencies (13 sources) Vitamin D deficiency; Translations: [Vitamin D deficiency, unspecified] Onset: 04-09-2008 Resolved: 11-03-2016 07-05-2013 Chronic Nutritional deficiencies (20 sources) Cobalamin deficiency; Translations: [Deficiency of other specified B group vitamins] Onset: 06-17-2024 Episodic Open wounds of head; neck; and trunk (20 sources) Laceration of right eyebrow; Translations: [Laceration without foreign body of right eyelid and periocular area, initial encounter] 02-09-2022 Episodic Osteoarthritis (7 sources) Osteoarthritis of hip; Translations: [Osteoarthritis of hip, unspecified] Onset: 02-16-2010 02-16-2010 Chronic Other aftercare (10 sources) Long-term current use of anticoagulant; Translations: [longterm (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 of anticoagulants] 12-27-2023 Episodic Other aftercare (10 sources) Surgical follow-up; Translations: [Encounter for removal of sutures] 12-28-2023 Episodic Other and ill-defined cerebrovascular disease (20 sources) 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 disease; Translations: [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 disease, unspecified] 04-11-2022 Chronic Other and ill-defined cerebrovascular disease (15 sources) 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 disease, unspecified; Translations: [Unspecified cerebrovascular disease] Chronic Other circulatory disease (13 sources) Orthostatic hypotension; Translations: [Orthostatic hypotension] 08-03-2024 Episodic Other circulatory disease (10 sources) History of cerebrovascular accident; Translations: [Personal history of transient ischemic attack (TIA), and cerebral infarction without residual deficits] 06-24-2024 Episodic Other circulatory disease (1 source) Other specified symptoms and signs involving the circulatory and respiratory systems; Translations: [Other specified symptoms and signs involving the circulatory and respiratory systems] Onset: 11-27-2024 Episodic Other connective tissue disease (20 sources) Pain in calf; Translations: [Pain in left lower leg] 02-29-2020 Episodic Other connective tissue disease (13 sources) Swelling of lower limb; Translations: [Other specified soft tissue disorders] 09-28-2022 Episodic Other connective tissue disease (2 sources) Other specified soft tissue disorders; Translations: [Swelling of limb] 09-28-2022 Episodic Other connective tissue disease (6 sources) Pain of toe of left foot; Translations: [Pain in left toe(s)] 07-31-2023 Episodic Other connective tissue disease (6 sources) Pain of toe of right foot; Translations: [Pain in right toe(s)] 07-31-2023 Episodic Other connective tissue disease (10 sources) Pain in upper limb; Translations: [Pain in right arm] 05-20-2024 Episodic Other connective tissue disease (1 source) Pain in left toe(s); Translations: [Pain in toe of left foot] Onset: 12-13-2024 Episodic Other connective tissue disease (1 source) Pain in right toe(s); Translations: [Pain in toe of right foot] Onset: 12-13-2024 Episodic Other diseases of veins and lymphatics (1 source) Vascular insufficiency; Translations: [Venous insufficiency (chronic) (peripheral)] 09-06-2024 Episodic Other endocrine disorders (10 sources) Hypoglycemia; Translations: [Hypoglycemia, unspecified] 06-24-2024 Chronic Other endocrine disorders (1 source) Hypoglycemia, unspecified; Translations: [Hypoglycemia, unspecified] Onset: 06-17-2024 Chronic Other hereditary and degenerative nervous system conditions (20 sources) Impaired cognition; Translations: [Mild cognitive impairment, so stated] 04-11-2022 Chronic Other hereditary and degenerative nervous system conditions (10 sources) Mild cognitive impairment, so stated; Translations: [Mild cognitive impairment, so stated] Onset: 06-17-2024 Chronic Other hereditary and degenerative nervous system conditions (7 sources) Restless legs; Translations: [Restless legs syndrome] Onset: 04-20-2020 04-20-2020 Chronic Other injuries and conditions due to external causes (20 sources) Closed injury of head; Translations: [Unspecified injury of head, initial encounter] 02-09-2022 Episodic Other liver diseases (7 sources) Chronic liver disease; Translations: [Liver disease, unspecified] Onset: 06-22-2006 06-22-2006 Chronic Other lower respiratory disease (20 sources) Dyspnea; Translations: [Cough] Onset: 02-25-2011 Resolved: 07-02-2015 08-06-2015 Episodic Other lower respiratory disease (20 sources) Cough; Translations: [Cough] 07-22-2019 Episodic Other lower respiratory disease (3 sources) Shortness of breath; Translations: [Shortness of breath] Onset: 12-31-2024 Episodic Other lower respiratory disease (4 sources) Dyspnea at rest; Translations: [Shortness of breath] 12-30-2024 Episodic Other lower respiratory disease (2 sources) Other forms of dyspnea; Translations: [Other forms of dyspnea] Onset: 11-25-2024 Episodic Other male genital disorders (7 sources) Secondary erectile dysfunction; Translations: [Male erectile dysfunction, unspecified] Onset: 03-31-2009 03-31-2009 Chronic Other nervous system disorders (20 sources) Polyneuropathy; Translations: [Polyneuropathy, unspecified] 12-17-2020 Chronic Other nervous system disorders (13 sources) Polyneuropathy, unspecified; Translations: [Unspecified hereditary and idiopathic peripheral neuropathy] Onset: 06-06-2024 Chronic Other nervous system disorders (10 sources) Carpal tunnel syndrome of right wrist; Translations: [Carpal tunnel syndrome, right upper limb] 11-20-2023 Chronic Other nervous system disorders (12 sources) Abnormal gait; Translations: [Unspecified abnormalities of gait and mobility] 10-10-2022 Episodic Other nervous system disorders (1 source) Unspecified abnormalities of gait and mobility; Translations: [Abnormality of gait] 10-10-2022 Episodic Other non-traumatic joint disorders (20 sources) Hip pain; Translations: [Pain in left hip] 07-18-2020 Episodic Other non-traumatic joint disorders (12 sources) Pain in left shoulder; Translations: [Left shoulder pain] 10-31-2022 Episodic Other nutritional; endocrine; and metabolic disorders (20 sources) Obesity; 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, unspecified] Onset: 02-08-2016 02-09-2016 Chronic Other nutritional; endocrine; and metabolic disorders (20 sources) Body mass index 40+ - severely obese; Translations: [Body mass index (BMI) 40.0-44.9, adult] Onset: 07-30-2019 07-18-2020 Chronic Other nutritional; endocrine; and metabolic disorders (14 sources) Obesity, unspecified; 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, unspecified] Onset: 06-17-2024 Chronic Other nutritional; endocrine; and metabolic disorders (7 sources) Morbid obesity; Translations: [Morbid (severe) obesity due to excess calories] Onset: 04-23-2012 04-23-2012 Chronic Other nutritional; endocrine; and metabolic disorders (10 sources) Body mass index 30+ - obesity; 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, unspecified] 06-24-2024 Chronic Other nutritional; endocrine; and metabolic disorders (1 source) Morbid (severe) obesity due to excess calories; Translations: [Morbid (severe) obesity due to excess calories] Onset: 12-31-2024 Chronic Other nutritional; endocrine; and metabolic disorders (1 source) Body mass index (BMI) 38.0-38.9, adult; Translations: [Body mass index [BMI] 38.0-38.9, adult] Onset: 12-31-2024 Chronic Other skin disorders (1 source) Asteatosis cutis; Translations: [Xerosis cutis] 07-31-2023 Episodic Other skin disorders (1 source) Callus of heel; Translations: [Corns and callosities] 07-31-2023 Episodic Other upper respiratory disease (20 sources) Vocal cord dysfunction; Translations: [Other diseases of vocal cords] 07-18-2020 Episodic Other upper respiratory disease (2 sources) Bleeding from nose; Translations: [Epistaxis] 12-31-2024 Episodic Other upper respiratory infections (20 sources) Upper respiratory infection; Translations: [Acute upper respiratory infection, unspecified] Onset: 12-07-2016 12-07-2016 Episodic Otitis media and related conditions (11 sources) Acute left otitis media; Translations: [Otitis media, unspecified, left ear] 01-23-2023 Episodic Parkinson`s disease (20 sources) Parkinson's disease; Translations: [Parkinson's disease] Onset: 07-30-2019 Chronic Parkinson`s disease (1 source) Parkinson`s disease; Translations: [Parkinson's disease without dyskinesia, without mention of fluctuations] Onset: 06-17-2024 [place]-; endo-; and myocarditis; cardiomyopathy (20 sources) 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; Translations: [Cardiomyopathy] Onset: 10-28-2010 10-28-2010 Chronic Pneumonia (except that caused by tuberculosis or sexually transmitted disease) (16 sources) Pneumonia; Translations: [Pneumonia, unspecified organism] Onset: 12-31-2024 12-09-2024 Episodic Residual codes; unclassified (20 sources) Obstructive sleep apnea syndrome; Translations: [Obstructive sleep apnea (adult) (pediatric)] 07-18-2020 Chronic Residual codes; unclassified (11 sources) Obstructive sleep apnea (adult) (pediatric); Translations: [Obstructive sleep apnea (adult)(pediatric)] Onset: 12-09-2024 Chronic Residual codes; unclassified (1 source) Pain; Translations: [Pain, unspecified] 07-31-2023 Episodic Spondylosis; intervertebral disc disorders; other back problems (20 sources) Degeneration of cervical intervertebral disc; Translations: [Other cervical disc degeneration, unspecified cervical region] 04-14-2021 Chronic Spondylosis; intervertebral disc disorders; other back problems (20 sources) Low back pain; Translations: [Low back pain] Onset: 10-09-2013 10-10-2022 Episodic Superficial injury; contusion (2 sources) Contusion of face; Translations: [Contusion of other part of head, initial encounter] 12-31-2024 Episodic Syncope (13 sources) Vasovagal syncope; Translations: [Syncope and collapse] Onset: 06-17-2024 06-24-2024 Episodic Thyroid disorders (20 sources) Hypothyroidism; Translations: [Hypothyroidism, unspecified] Onset: 08-21-2010 08-21-2010 Chronic Transient cerebral ischemia (11 sources) Transient cerebral ischemia; Translations: [Transient cerebral ischemic attack, unspecified] Onset: 06-17-2024 06-24-2024 Chronic Unclassified (15 sources) Body mass index (BMI) 40.0-44.9, adult; Translations: [Body mass index (BMI) 39.0-39.9, adult] Onset: 06-25-2013 Resolved: 07-02-2015 12-04-2014 Chronic Unclassified (4 sources) 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 ; Translations: [Presence of cardiac and vascular implant and graft, unspecified] Onset: 07-02-2015 07-02-2015 Unclassified (2 sources) Long-term drug therapy; Translations: [Other skilled nursing (current) drug therapy] Onset: 10-28-2010 10-28-2010 Unclassified (20 sources) Age AND/OR growth finding; Translations: [65 years of age or older] 03-16-2021 Unclassified (1 source) Obesity, class 2; 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, class 2] Onset: 12-31-2024 Unclassified (1 source) Parkinsonism, unspecified; Translations: [Parkinsonism, unspecified] Onset: 06-06-2024 Urinary tract infections (10 sources) Urinary tract infectious disease; Translations: [Urinary tract infection, site not specified] 11-20-2024 Episodic Viral infection (20 sources) Disease caused by 2019-nCoV; Translations: [COVID-19] 03-15-2021 Episodic Past or Other Problems Problem Classification Problem Date Documented Date Episodic/Chronic Abdominal hernia (17 sources) Diaphragmatic hernia; Translations: [Diaphragmatic hernia without obstruction or gangrene] Onset: 09-27-2006 Resolved: 12-22-2014 04-27-2010 Episodic Asthma (5 sources) Asthma; Translations: [Unspecified asthma, uncomplicated] Resolved: 06-28-2019 06-28-2019 Chronic Deficiency and other anemia (2 sources) Anemia; Translations: [Anemia, unspecified] Onset: 03-21-2016 03-21-2016 Episodic Deficiency and other anemia (7 sources) Iron deficiency anemia secondary to inadequate dietary iron intake; Translations: [Other iron deficiency anemias] Onset: 03-31-2016 03-31-2016 Episodic Diverticulosis and diverticulitis (5 sources) Diverticulitis of large intestine without perforation or abscess without bleeding; Translations: [Diverticulitis of colon (without mention of hemorrhage)] Resolved: 12-22-2014 12-22-2014 Chronic E Codes: Place of occurrence (1 source) Unspecified place in unspecified non-institutional (private) residence as the place of occurrence of the external cause; Translations: [Unspecified place in unspecified non-institutional (private) residence as the place of occurrence of the external cause] Onset: 06-06-2024 Episodic Gastritis and duodenitis (5 sources) Acute gastritis; Translations: [Acute gastritis without bleeding] Onset: 09-27-2006 Resolved: 12-22-2014 12-22-2014 Episodic Other aftercare (1 source) longterm (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 of insulin; Translations: [longterm (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 of insulin] Onset: 06-17-2024 Episodic Other circulatory disease (1 source) Personal history of transient ischemic attack (TIA), and cerebral infarction without residual deficits; Translations: [Personal history of transient ischemic attack (TIA), and cerebral infarction without residual deficits] Onset: 06-17-2024 Episodic Other circulatory disease (1 source) Orthostatic hypotension; Translations: [Orthostatic hypotension] Onset: 06-17-2024 Episodic Other connective tissue disease (7 sources) Synovial cyst of right popliteal space; Translations: [Synovial cyst of popliteal space [Blanco], right knee] Onset: 10-28-2019 10-28-2019 Episodic Other connective tissue disease (1 source) Other symptoms and signs involving the nervous system; Translations: [Other symptoms and signs involving the nervous system] Onset: 06-06-2024 Episodic Other endocrine disorders (5 sources) Testicular hypofunction; Translations: [Testicular hypofunction] Onset: 10-17-2007 Resolved: 11-03-2016 11-03-2016 Chronic Other screening for suspected conditions (not mental disorders or infectious disease) (10 sources) Patient encounter status; Translations: [Encounter for screening for malignant neoplasm of colon] Onset: 01-29-2015 Resolved: 04-20-2020 01-29-2015 Episodic Residual codes; unclassified (7 sources) Family history of cancer of colon; Translations: [Family history of malignant neoplasm of digestive organs] Onset: 12-22-2014 12-22-2014 Episodic Sprains and strains (5 sources) Lumbar sprain; Translations: [Sprain of ligaments of lumbar spine, initial encounter] Onset: 09-01-2011 Resolved: 10-27-2011 10-27-2011 Episodic Unclassified (4 sources) Family history of ischemic heart disease and other diseases of the circulatory system; Translations: [Family history of ischemic heart disease and other diseases of the circulatory system] Resolved: 08-06-2015 12-04-2014 Episodic Results Test Name Value Interpretation Reference Range Facility Echo Completeon 01-02-2025 Echo Complete Normal [facility] Brain/Head without Contrasto n 12-31-2024 Brain/Head without Contrast Normal [facility] Emergency Department Summary on 12-31-2024 Emergency Department Summary Normal [facility] MR/BMS.IMBon 12-30-2024 MR/BMS.IMB Normal [facility] Cardiology Visit Reporton Cardiology Visit Report Normal [facility] Absolute lymphocyte countOrd ered By: Derick Sorenson on 12-21-2024 Lymphocytes Auto (Unsp spec) [#/Vol] 1.36 10*3/uL 0.83-4.[address] [facility] Absolute neutrophil countOrd ered By: Derick Sorenson on 12-21-2024 Neutrophils (Bld) [#/Vol] 3.4 10*3/uL 2.0-7.[address] [facility] Activated partial thrombopla stin time (aPTT) in platelet poor plasma by coagulation aOrdered By: Derick Sorenson on 12-21-2024 aPTT Coag (PPP) [Time] 29.7 s 24.1-36.2 [facility] Anion gap in Serum or Plasma Ordered By: Derick Sorenson on 12-21-2024 Anion gap [Moles/Vol] 14 mmol/L - [facility] Automated lymphocyte count a s percentage of total leukocytesOrdered By: Derick Sorenson on 12-21-2024 Lymphocytes/100 WBC Auto (Unsp spec) 24.4 % - [facility] BUN/creatinine ratioOrdered By: Derick Sorenson on 12-21-2024 Urea nitrogen/Creatinine [Mass ratio] 9.8 mg/mg Low 10- [facility] Basic Metabolic Profile (BMP )on 12-21-2024 BUN/CRE 9.8 RATIO Low -[address] [facility] Comment on above: Performed By: #### L 500.2500, L503.7505 ####[facility] [id number] [place], [address] Calcium [Mass/Vol] 9.9 mg/dL Normal 7.6-11.0 [facility] Comment on above: Performed By: #### L 500.2500, [id number] ####[facility] [address] [place], [address] Chloride [Moles/Vol] 99 mmol/L Normal 98-108 [facility] Comment on above: Performed By: #### L 500.2500, [id number] ####[facility] [address] [place], [address] CO2 [Moles/Vol] 26.4 mmol/L Normal 21.0-32.[address] [facility] Comment on above: Performed By: #### L 500.2500, [id number] ####[facility] [address] [place], [address] Creatinine [Mass/Vol] 1.46 mg/dL High 0.70-1.20 [facility] Comment on above: Performed By: #### L 500.2500, [id number] ####[facility] [address] [place], [address] ECRCL 38.29 ml/min Low 50-[address] [facility] Comment on above: Performed By: #### L 500.2500, [id number] ####[facility] [address] [place], [address] GAP 14 Normal 5-[address] [facility] Comment on above: Performed By: #### L 500.2500, [id number] ####[facility] [address] [place], [address] GFR/1.73 sq M.predicted among non-blacks MDRD (S/P/Bld) [Vol rate/Area] 46 mL/min/{1.73_m2} Low >[address] [facility] Comment on above: Result Comment: mL/m in/1.73m2 CKD-EPI Creatinine Equation (2020) Performed By: #### L 500.2500, [id number] ####[facility] [address] [place], [address] Glucose [Mass/Vol] 63 mg/dL Low 70-99 [facility] Comment on above: Performed By: #### L 500.2500, [id number] ####[facility] [address] [place], [address] Potassium [Moles/Vol] 3.8 mmol/L Normal 3.3-5.1 [facility] Comment on above: Performed By: #### L 500.2500, [id number] ####[facility] [address] [place], [address] Sodium [Moles/Vol] 139 mmol/L Normal 133-145 [facility] Comment on above: Performed By: #### L 500.2500, [id number] ####[facility] [address] [place], [address] Urea nitrogen [Mass/Vol] 14 mg/dL Normal 4-[address] [facility] Comment on above: Performed By: #### L 500.2500, [id number] ####[facility] [address] [place], [address] Basophil percentageOrdered B y: Derick Sorenson on 12-21-2024 Basophils/100 WBC (Bld) 0.9 % 0-1 [facility] CBC W/Diff, Automatedon Absolute Lymph 1.36 X10 3/uL Normal 0.83-4.[address] [facility] Comment on above: Performed By: #### L 300.3900, L100.0100, L501.4021, L300.4310 ####[facility] [address] [place], [address] Absolute Neut 3.4 X10 3/uL Normal 2.0-7.[address] [facility] Comment on above: Performed By: #### L 300.3900, L100.0100, L501.4021, L300.4310 ####[facility] [address] [place], [address] Basophils/100 WBC (Bld) 0.9 % Normal 0-1 [facility] Comment on above: Performed By: #### L 300.3900, L100.0100, L501.4021, L300.4310 ####[facility] [address] [place], [address] Eosinophils/100 WBC (Bld) 3.1 % Normal 0-[address] [facility] Comment on above: Performed By: #### L 300.3900, L100.0100, L501.4021, L300.4310 ####[facility] [address] [place], [address] Erythrocyte distribution width (RBC) [Ratio] 14.1 % Normal 11.6-14.[address] [facility] Comment on above: Performed By: #### L 300.3900, L100.0100, L501.4021, L300.4310 ####[facility] [address] [place], [address] Hematocrit (Bld) [Volume fraction] 40.5 % Normal 40-[address] [facility] Comment on above: Performed By: #### L 300.3900, L100.0100, L501.4021, L300.4310 ####[facility] [address] [place], [address] Hemoglobin (Bld) [Mass/Vol] 13.9 g/dL Normal 13.0-16.[address] [facility] Comment on above: Performed By: #### L 300.3900, L100.0100, L501.4021, L300.4310 ####[facility] [address] [place], [address] IG% 0.700 Normal 0.0-0.[address] [facility] Comment on above: Result Comment: IG% - Immature Granulocytes (promyelocytes, myelocytes andmetamyelocytes) > 1% indicates that a LEFT SHIFT is Present. Performed By: #### L 300.3900, L100.0100, L501.4021, L300.4310 ####[facility] [address] [place], [address] Lymphocytes/100 WBC (Bld) 24.4 % Normal 19-[address] [facility] Comment on above: Performed By: #### L 300.3900, L100.0100, L501.4021, L300.4310 ####[facility] [address] [place], [address] MCH (RBC) [Entitic mass] 33.2 pg High 27.0-32.[address] [facility] Comment on above: Performed By: #### L 300.3900, L100.0100, L501.4021, L300.4310 ####[facility] [address] [place], [address] MCHC (RBC) [Mass/Vol] 34.3 g/dL Normal 32-36 [facility] Comment on above: Performed By: #### L 300.3900, L100.0100, L501.4021, L300.4310 ####[facility] [address] [place], [address] MCV (RBC) [Entitic vol] 96.7 fL High 80-94 [facility] Comment on above: Performed By: #### L 300.3900, L100.0100, L501.4021, L300.4310 ####[facility] [address] [place], [address] Monocytes/100 WBC (Bld) 10.8 % High 0-10 [facility] Comment on above: Performed By: #### L 300.3900, L100.0100, L501.4021, L300.4310 ####[facility] [id number] [place], [address] Neutrophils/100 WBC (Bld) 60.1 % Normal 47-[address] [facility] Comment on above: Performed By: #### L 300.3900, L100.0100, L501.4021, L300.4310 ####[facility] [address] [place], [address] Nucleated RBC (Bld) [#/Vol] 0 10*3/uL Normal 0-[address] [facility] Comment on above: Performed By: #### L 300.3900, L100.0100, L501.4021, L300.4310 ####[facility] [address] [place], [address] Platelet mean volume (Bld) [Entitic vol] 9.1 fL Normal 6.2-12.[address] [facility] Comment on above: Performed By: #### L 300.3900, L100.0100, L501.4021, L300.4310 ####[facility] [address] [place], [address] Platelets (Bld) [#/Vol] 211 10*3/uL Normal 150-[address] [facility] Comment on above: Performed By: #### L 300.3900, L100.0100, L501.4021, L300.4310 ####[facility] [address] [place], [address] RBC (Bld) [#/Vol] 4.19 10*6/uL Low 4.6-6.2 [facility] Comment on above: Performed By: #### L 300.3900, L100.0100, L501.4021, L300.4310 ####[facility] [address] [place], [address] RDW SD 50.2 fl High 35.1-43.[address] [facility] Comment on above: Performed By: #### L 300.3900, L100.0100, L501.4021, L300.4310 ####[facility] [address] [place], [address] WBC (Bld) [#/Vol] 5.6 10*3/uL Normal 4.4-11.0 [facility] Comment on above: Performed By: #### L 300.3900, L100.0100, L501.4021, L300.4310 ####[facility] [address] [place], [address] Carbon dioxide, total [Moles /volume] in Central venous bloodOrdered By: Derick Sorenson on 12-21-2024 CO2 [Moles/Vol] 26.4 mmol/L 21.0-32.[address] [facility] Chest PA and Lateralon 12-21 Chest PA and Lateral Normal [facility] Chest without Contraston Chest without Contrast Normal [facility] Chloride assayOrdered By: Ottoniel Sorenson on 12-21-2024 Chloride [Moles/Vol] 99 mmol/L 98-108 [facility] Emergency Department Summary on 12-21-2024 Emergency Department Summary Normal [facility] Eosinophil percentageOrdered By: Derick Sorenson on 12-21-2024 Eosinophils/100 WBC (Bld) 3.1 % 0-[address] [facility] Erythrocyte distribution wid th ratioOrdered By: Derick Sorenson on 12-21-2024 Erythrocyte distribution width (RBC) [Ratio] 14.1 % 11.6-14.[address] [facility] Erythrocyte distribution wid th standard deviationOrdered By: Derick Sorenson on 12-21-2024 Erythrocyte distribution width (RBC) [Ratio] 50.2 fl High 35.1-43.[address] [facility] Glomerular filtration rate ( GFR) estimation/1.73 sq m using serum, plasma, or whole bOrdered By: Derick Sorenson on 12-21-2024 GFR/1.73 sq M.predicted among non-blacks MDRD (S/P/Bld) [Vol rate/Area] 46 mL/min/{1.73_m2} Low >[address] [facility] Comment on above: mL/min/1.73m2 CKD-EP I Creatinine Equation (2020) Hematocrit Auto (Bld) [Volum e fraction]Ordered By: Derick Sorenson on 12-21-2024 Hematocrit (Bld) [Volume fraction] 40.5 % 40-[address] [facility] Hemoglobin measurementOrdere d By: Derick Sorenson on 12-21-2024 Hemoglobin (Bld) [Mass/Vol] 13.9 g/dL 13.0-16.[address] [facility] Immature granulocytes/100 WB C Auto (Bld)Ordered By: Derick Sorenson on 12-21-2024 Immature granulocytes/100 WBC (Bld) 0.700 % 0.0-0.[address] [facility] Comment on above: IG% - Immature Granu locytes (promyelocytes, myelocytes and metamyelocytes) > 1% indicates that a LEFT SHIFT is Present. International normalized rat io (INR) calculationOrdered By: Derick Sorenson on 12-21-2024 INR Coag (Bld) [Relative time] 1.1 {INR} [facility] L499.0042on 12-21-2024 Trop T High Sen 42 ng/L High <=[address] [facility] Comment on above: Performed By: #### L 499.0042 ####[facility] [address] [place], [place], [address] L499.0043on 12-21-2024 Trop T High Sen Normal <=[address] [facility] Comment on above: Result Comment: Kim peralta via OM: dr morgan Performed By: #### L 499.0043 ####[facility] [address] [place], [place], [address] L501.4021on 12-21-2024 Trop T High Sen 44 ng/L High <=[address] [facility] Comment on above: Performed By: #### L 300.3900, L100.0100, L501.4021, L300.4310 ####[facility] [address] [place], [place], [address] L503.7505on 12-21-2024 Natriuretic peptide B (Bld) [Mass/Vol] 542 pg/mL Normal <=[address] [facility] Comment on above: Result Comment: Hear t Failure Unlikely: < 300 pg/mLHeart Failure Likely< 50 Years: > 450 pg/mL50-75 Years: > 900 pg/mL>75 Years: > 1800 pg/mL Performed By: #### L 500.2500, L503.7505 ####[facility] [address] [place], [place], [id number] MCV (mean corpuscular volume ) determinationOrdered By: Derick Sorenson on 12-21-2024 MCV (RBC) [Entitic vol] 96.7 fL High 80-94 [facility] Mean corpuscular hemoglobin (MCH) determinationOrdered By: Derick Sorenson on 12-21-2024 MCH (RBC) [Entitic mass] 33.2 pg High 27.0-32.[address] [facility] Mean corpuscular hemoglobin concentration (MCHC) determinationOrdered By: Derick Sorenson on 12-21-2024 MCHC (RBC) [Mass/Vol] 34.3 g/dL 32-36 [facility] Mean platelet volume determi nationOrdered By: Derick Sorenson on 12-21-2024 Platelet mean volume (Bld) [Entitic vol] 9.1 fL 6.2-12.[address] [facility] Monocyte percentageOrdered B y: Derick Sorenson on 12-21-2024 Monocytes/100 WBC (Bld) 10.8 % High 0-10 [facility] Natriuretic peptide.B prohor lam N-Terminal [Mass/volume] in Serum or PlasmaOrdered By: Derick Sorenson on 12-21-2024 Natriuretic peptide.B prohormone N-Terminal [Mass/Vol] 542 pg/mL <[address] [facility] Comment on above: Heart Failure Unlike ly: < 300 pg/mLHeart Failure Likely< 50 Years: > 450 pg/mL50-75 Years: > 900 pg/mL>75 Years: > 1800 pg/mL Neutrophil percentageOrdered By: Derick Sorenson on 12-21-2024 Neutrophils/100 WBC (Bld) 60.1 % 47-[address] [facility] Nucleated red blood cell per centageOrdered By: Derick Sorenson on 12-21-2024 Nucleated RBC/100 WBC (Bld) [Ratio] 0 % 0-[address] [facility] Partial Thromboplast Timeon 12-21-2024 aPTT Coag (Bld) [Time] 29.7 s Normal 24.1-36.2 [facility] Comment on above: Performed By: #### L 300.3900, L100.0100, L501.4021, L300.4310 ####[facility] [address] [place], [place], [id number] Platelet countOrdered By: Ottoniel Sorenson on 12-21-2024 Platelets (Bld) [#/Vol] 211 10*3/uL 150-[address] [facility] Potassium measurement (mass/ volume)Ordered By: Derick Sorenson on 12-21-2024 Potassium (Unsp spec) [Mass/Vol] 3.8 mmol/L 3.3-5.[address] [facility] Prothrombin Time w/INRon INR Coag (PPP) [Relative time] 1.1 {INR} Normal [facility] Comment on above: Performed By: #### L 300.3900, L100.0100, L501.4021, L300.4310 ####[facility] [address] [place], [address] PT Coag (PPP) [Time] 14.6 s Normal 11.7-14.9 [facility] Comment on above: Performed By: #### L 300.3900, L100.0100, L501.4021, L300.4310 ####[facility] [address] [place], [address] Prothrombin timeOrdered By: Derick Sorenson on 12-21-2024 PT Coag (PPP) [Time] 14.6 s 11.7-14.9 [facility] RBC Auto (Bld) [#/Vol]Ordere d By: Derick Sorenson on 12-21-2024 RBC (Bld) [#/Vol] 4.19 10*6/uL Low 4.6-6.2 [facility] Serum creatinine measurement (mass/volume)Ordered By: Derick Sorenson on 12-21-2024 Creatinine [Mass/Vol] 1.46 mg/dL High 0.70-1.20 [facility] Serum glucose measurement (m ass/volume)Ordered By: Derick Sorenson on 12-21-2024 Glucose [Mass/Vol] 63 mg/dL Low 70-99 [facility] Serum or plasma calcium odilon urement (mass/volume)Ordered By: Derick Sorenson on 12-21-2024 Calcium [Mass/Vol] 9.9 mg/dL 7.6-11.0 [facility] Serum or plasma urea nitroge n measurement (mass/volume)Ordered By: Derick Sorenson on 12-21-2024 Urea nitrogen [Mass/Vol] 14 mg/dL 4-[address] [facility] Sodium levelOrdered By: Laisha Sorenson on 12-21-2024 Sodium [Moles/Vol] 139 mmol/L 133-145 [facility] Troponin T.cardiac [Mass/vol ume] in Serum or Plasma by High sensitivity methodOrdered By: Derick Sorenson on 12-21-2024 Troponin T.cardiac High sensitivity method [Mass/Vol] 42 ng/L High <[address] [facility] Troponin T.cardiac High sensitivity method [Mass/Vol] 44 ng/L High <[address] [facility] White blood cell (WBC) count Ordered By: Derick Sorenson on 12-21-2024 WBC (Bld) [#/Vol] 5.6 10*3/uL 4.4-11.0 [facility] CNOVon 12-13-2024 CNOV Office Visit (PODIWS ) KARLEERENETTAJEROMEOLMAN LOPEZ ([id number]) 1935 M Date Time Provider Department 12/13/24 3:40 PM BARBIE NOVA PODIWS During your visit today, we recorded the following information about you: Dinorah Dempsey LPN 12/14/2024 9:07 AM Signed AMB ROOMING INTAKE FLOWSHEET DATA Patient presents with: Left Foot - Established Patient, Follow Up, Diabetic Foot Care Right Foot - Established Patient, Follow Up, Diabetic Foot Care GISELA Tiwari Matthew 12/14/2024 9:07 AM Signed Last saw pcp: not in chart [...] Objective: Patient presents to clinic ambulating in [facility] Vasc: DP and PT pulses are faintly palpable due to swelling bilateral. CFT is less than 5 seconds bilateral. Skin temperature is warm to cool proximal to distal bilateral. There is significant edema or varicosities noted. Neuro: Protective sensation [...] (M79.675) Pain in toe of left foot (E11.42) Diabetic polyneuropathy associated with type 2 diabetes mellitus (HCC) (M79.674) Pain in toe of right foot Plan: Patient was seen and evaluated. Nails 1-5 bilateral were debrided in length and thickness. Patient was instructed on the continued importance of diabetic foot care along with proper diet and keeping their blood sugar under control to prevent complications. Patient is to RTC in 3-4 months. Barbie Nova DPM Allergies As of Date: 12/13/2024 Noted Allergy Reaction ACTOS (PIOGLITAZONE HCL) 2006 Comments: abdomenal pain Date Reviewed: 12/13/2024 Reviewed by: Dinorah Dempsey LPN - Fully Assessed Reason for Visit: Established Patient [175] Follow Up [171] Diabetic Foot Care [916] Established Patient [175] Follow Up [171] Diabetic Foot Care [916] Primary Visit Diagnosis:Onychomycosi s [B35.1] Other Visit Diagnoses:Pain in toe of left foot [M79.675] Diabetic polyneuropathy associated with type 2 diabetes mellitus (HCC) [E11.42] Pain in toe of right foot [M79.674] Prescriptions as of 12/14/2024 - cefUROXime (CEFTIN) 250 mg tablet Take 1 tablet by mouth every 12 hours. - escitalopram oxalate (LEXAPRO) 10 mg tablet - ranolazine ER (RANEXA) 500 mg 12 hr tablet Take 1 tablet by mouth every 12 hours. - MEDICATION, NON-DATABASE Zinc 50 mg - ferrous sulfate (IRON, FERROUS SULFATE,) 325 mg (65 mg iron) tablet Take 325 mg by mouth. 65 mg Iron - cyanocobalamin (VITAMIN B-12) 1,000 mcg tab Take 1,000 mcg by mouth once daily. - fludrocortisone (FLORINEF) 0.1 mg tablet Take 0.1 mg by mouth. - amLODIPine (NORVASC) 5 mg tablet Take 5 mg by mouth once daily. - MEDICATION, NON-DATABASE Zinc/vitamin C daily - [...] (PRESERVISION AREDS ORAL) Take 1 tablet by mout (more content not included)... Normal [facility] Chest PA and Lateralon 12-09 Chest PA and Lateral Normal [facility] MR/BMS.IMBon 12-09-2024 MR/BMS.IMB Normal [facility] Absolute lymphocyte countOrd ered By: Keron Maciel on 11-25-2024 Lymphocytes Auto (Unsp spec) [#/Vol] 0.98 10*3/uL 0.83-4.[address] [facility] Absolute neutrophil countOrd ered By: Keron Maciel on 11-25-2024 Neutrophils (Bld) [#/Vol] 4.3 10*3/uL 2.0-7.[address] [facility] Anion gap in Serum or Plasma Ordered By: Keron Maciel on 11-25-2024 Anion gap [Moles/Vol] 14 mmol/L 5-15 [facility] Automated lymphocyte count a s percentage of total leukocytesOrdered By: Keron Maciel on 11-25-2024 Lymphocytes/100 WBC Auto (Unsp spec) 15.9 % Low [facility] BUN/creatinine ratioOrdered By: Keron Maciel on 11-25-2024 Urea nitrogen/Creatinine [Mass ratio] 13.8 mg/mg 04-[address] [facility] Basic Metabolic Profile (BMP )on 11-25-2024 BUN/CRE 13.8 RATIO Normal 04-[address] [facility] Comment on above: Performed By: #### L 500.2500, L503.7505, L100.0100 ####[facility] [address] [place], [address] Calcium [Mass/Vol] 10.1 mg/dL Normal 7.6-11.0 [facility] Comment on above: Performed By: #### L 500.2500, L503.7505, L100.0100 ####[facility] [address] [place], [address] Chloride [Moles/Vol] 101 mmol/L Normal 98-108 [facility] Comment on above: Performed By: #### L 500.2500, L503.7505, L100.0100 ####[facility] [address] [place], [address] CO2 [Moles/Vol] 24.3 mmol/L Normal 21.0-32.[address] [facility] Comment on above: Performed By: #### L 500.2500, L503.7505, L100.0100 ####[facility] [address] [place], [address] Creatinine [Mass/Vol] 1.60 mg/dL High 0.70-1.20 [facility] Comment on above: Performed By: #### L 500.2500, L503.7505, L100.0100 ####[facility] [address] [place], [address] GAP 14 Normal 5-[address] [facility] Comment on above: Performed By: #### L 500.2500, L503.7505, L100.0100 ####[facility] [address] [place], [address] GFR/1.73 sq M.predicted among non-blacks MDRD (S/P/Bld) [Vol rate/Area] 41 mL/min/{1.73_m2} Low >[address] [facility] Comment on above: Result Comment: mL/m in/1.73m2 CKD-EPI Creatinine Equation (2020) Performed By: #### L 500.2500, L503.7505, L100.0100 ####[facility] [address] [place], [address] Glucose [Mass/Vol] 202 mg/dL High 70-99 [facility] Comment on above: Performed By: #### L 500.2500, L503.7505, L100.0100 ####[facility] [address] [place], [address] Potassium [Moles/Vol] 4.6 mmol/L Normal 3.3-5.1 [facility] Comment on above: Performed By: #### L 500.2500, L503.7505, L100.0100 ####[facility] [address] [place], [address] Sodium [Moles/Vol] 140 mmol/L Normal 133-145 [facility] Comment on above: Performed By: #### L 500.2500, L503.7505, L100.0100 ####[facility] [address] [place], [address] Urea nitrogen [Mass/Vol] 22 mg/dL High 4-[address] [facility] Comment on above: Performed By: #### L 500.2500, L503.7505, L100.0100 ####[facility] [address] [place], [address] Basophil percentageOrdered B y: Keron Maciel on 11-25-2024 Basophils/100 WBC (Bld) 0.6 % 0-1 [facility] CBC W/Diff, Automatedon Absolute Lymph 0.98 X10 3/uL Normal 0.83-4.[address] [facility] Comment on above: Performed By: #### L 500.2500, L503.7505, L100.0100 ####[facility] [address] [place], [address] Absolute Neut 4.3 X10 3/uL Normal 2.0-7.[address] [facility] Comment on above: Performed By: #### L 500.2500, L503.7505, L100.0100 ####[facility] [address] [place], [address] Basophils/100 WBC (Bld) 0.6 % Normal 0-1 [facility] Comment on above: Performed By: #### L 500.2500, L503.7505, L100.0100 ####[facility] [address] [place], [address] Eosinophils/100 WBC (Bld) 1.9 % Normal 0-[address] [facility] Comment on above: Performed By: #### L 500.2500, L503.7505, L100.0100 ####[facility] [address] [place], [address] Erythrocyte distribution width (RBC) [Ratio] 14.6 % Normal 11.6-14.[address] [facility] Comment on above: Performed By: #### L 500.2500, L503.7505, L100.0100 ####[facility] [address] [place], [address] Hematocrit (Bld) [Volume fraction] 39.6 % Low 40-[address] [facility] Comment on above: Performed By: #### L 500.2500, L503.7505, L100.0100 ####[facility] [address] [place], [address] Hemoglobin (Bld) [Mass/Vol] 13.5 g/dL Normal 13.0-16.[address] [facility] Comment on above: Performed By: #### L 500.2500, L503.7505, L100.0100 ####[facility] [address] [place], [address] IG% 2.100 High 0.0-0.[address] [facility] Comment on above: Result Comment: IG% - Immature Granulocytes (promyelocytes, myelocytes andmetamyelocytes) > 1% indicates that a LEFT SHIFT is Present. Performed By: #### L 500.2500, L503.7505, L100.0100 ####[facility] [address] [place], [address] Lymphocytes/100 WBC (Bld) 15.9 % Low 19-[address] [facility] Comment on above: Performed By: #### L 500.2500, L503.7505, L100.0100 ####[facility] [address] [place], [address] MCH (RBC) [Entitic mass] 33.4 pg High 27.0-32.[address] [facility] Comment on above: Performed By: #### L 500.2500, L503.7505, L100.0100 ####[facility] [address] [place], [address] MCHC (RBC) [Mass/Vol] 34.1 g/dL Normal 32-36 [facility] Comment on above: Performed By: #### L 500.2500, L503.7505, L100.0100 ####[facility] [address] [place], [address] MCV (RBC) [Entitic vol] 98.0 fL High 80-94 [facility] Comment on above: Performed By: #### L 500.2500, L503.7505, L100.0100 ####[facility] [address] [place], [address] Monocytes/100 WBC (Bld) 9.7 % Normal 0-10 [facility] Comment on above: Performed By: #### L 500.2500, L503.7505, L100.0100 ####[facility] [address] [place], [address] Neutrophils/100 WBC (Bld) 69.8 % Normal 47-[address] [facility] Comment on above: Performed By: #### L 500.2500, L503.7505, L100.0100 ####[facility] [address] [place], [address] Nucleated RBC (Bld) [#/Vol] 0 10*3/uL Normal 0-[address] [facility] Comment on above: Performed By: #### L 500.2500, L503.7505, L100.0100 ####[facility] [address] [place], [address] Platelet mean volume (Bld) [Entitic vol] 9.6 fL Normal 6.2-12.[address] [facility] Comment on above: Performed By: #### L 500.2500, L503.7505, L100.0100 ####[facility] [address] [place], [address] Platelets (Bld) [#/Vol] 230 10*3/uL Normal 150-[address] [facility] Comment on above: Performed By: #### L 500.2500, L503.7505, L100.0100 ####[facility] [address] [place], [address] RBC (Bld) [#/Vol] 4.04 10*6/uL Low 4.6-6.2 [facility] Comment on above: Performed By: #### L 500.2500, L503.7505, L100.0100 ####[facility] [address] [place], [address] RDW SD 53.1 fl High 35.1-43.[address] [facility] Comment on above: Performed By: #### L 500.2500, L503.7505, L100.0100 ####[facility] [address] [place], [address] WBC (Bld) [#/Vol] 6.2 10*3/uL Normal 4.4-11.0 [facility] Comment on above: Performed By: #### L 500.2500, L503.7505, L100.0100 ####[facility] [address] [place], [address] Carbon dioxide, total [Moles /volume] in Central venous bloodOrdered By: Keron Maciel on 11-25-2024 CO2 [Moles/Vol] 24.3 mmol/L 21.0-32.[address] [facility] Chest PA and Lateralon 11-25 Chest PA and Lateral Normal [facility] Chloride assayOrdered By: Madeleine Maciel on 11-25-2024 Chloride [Moles/Vol] 101 mmol/L 98-108 [facility] Eosinophil percentageOrdered By: Keron Maciel on 11-25-2024 Eosinophils/100 WBC (Bld) 1.9 % 0-[address] [facility] Erythrocyte distribution wid th ratioOrdered By: Keron Maciel on 11-25-2024 Erythrocyte distribution width (RBC) [Ratio] 14.6 % 11.6-14.[address] [facility] Erythrocyte distribution wid th standard deviationOrdered By: Keron Maciel on 11-25-2024 Erythrocyte distribution width (RBC) [Ratio] 53.1 fl High 35.1-43.[address] [facility] Glomerular filtration rate ( GFR) estimation/1.73 sq m using serum, plasma, or whole bOrdered By: Keron Maciel on 11-25-2024 GFR/1.73 sq M.predicted among non-blacks MDRD (S/P/Bld) [Vol rate/Area] 41 mL/min/{1.73_m2} Low >[address] [facility] Comment on above: mL/min/1.73m2 CKD-EP I Creatinine Equation (2020) Hematocrit Auto (Bld) [Volum e fraction]Ordered By: Keron Maciel on 11-25-2024 Hematocrit (Bld) [Volume fraction] 39.6 % Low 40-[address] [facility] Hemoglobin measurementOrdere d By: Keron Maciel on 11-25-2024 Hemoglobin (Bld) [Mass/Vol] 13.5 g/dL 13.0-16.[address] [facility] Immature granulocytes/100 WB C Auto (Bld)Ordered By: Keron Maciel on 11-25-2024 Immature granulocytes/100 WBC (Bld) 2.100 % High 0.0-0.[address] [facility] Comment on above: IG% - Immature Granu locytes (promyelocytes, myelocytes and metamyelocytes) > 1% indicates that a LEFT SHIFT is Present. L503.7505on 11-25-2024 Natriuretic peptide B (Bld) [Mass/Vol] 502 pg/mL Normal <=[address] [facility] Comment on above: Result Comment: Hear t Failure Unlikely: < 300 pg/mLHeart Failure Likely< 50 Years: > 450 pg/mL50-75 Years: > 900 pg/mL>75 Years: > 1800 pg/mL Performed By: #### L 500.2500, L503.7505, L100.0100 ####[facility] [address] [facility] [place], [address] MCV (mean corpuscular volume ) determinationOrdered By: Keron Maciel on 11-25-2024 MCV (RBC) [Entitic vol] 98.0 fL High 80-94 [facility] [facility] MR/BMS.IMBon 11-25-2024 MR/BMS.IMB Normal [facility] Mean corpuscular hemoglobin (MCH) determinationOrdered By: Keron Maciel on 11-25-2024 MCH (RBC) [Entitic mass] 33.4 pg High 27.0-32.[address] [facility] Mean corpuscular hemoglobin concentration (MCHC) determinationOrdered By: Keron Maciel on 11-25-2024 MCHC (RBC) [Mass/Vol] 34.1 g/dL 32-36 [facility] Mean platelet volume determi nationOrdered By: Keron Maciel on 11-25-2024 Platelet mean volume (Bld) [Entitic vol] 9.6 fL 6.2-12.[address] [facility] Monocyte percentageOrdered B y: Keron Maciel on 11-25-2024 Monocytes/100 WBC (Bld) 9.7 % 0-10 [facility] Natriuretic peptide.B prohor lam N-Terminal [Mass/volume] in Serum or PlasmaOrdered By: Keron Maciel on 11-25-2024 Natriuretic peptide.B prohormone N-Terminal [Mass/Vol] 502 pg/mL <[address] [facility] Comment on above: Heart Failure Unlike ly: < 300 pg/mLHeart Failure Likely< 50 Years: > 450 pg/mL50-75 Years: > 900 pg/mL>75 Years: > 1800 pg/mL Neutrophil percentageOrdered By: Keron Maciel on 11-25-2024 Neutrophils/100 WBC (Bld) 69.8 % 47-[address] [facility] Nucleated red blood cell per centageOrdered By: Keron Maciel on 11-25-2024 Nucleated RBC/100 WBC (Bld) [Ratio] 0 % 0-[address] [facility] Platelet countOrdered By: Madeleine Maciel on 11-25-2024 Platelets (Bld) [#/Vol] 230 10*3/uL 150-[address] [facility] Potassium measurement (mass/ volume)Ordered By: Keron Maciel on 11-25-2024 Potassium (Unsp spec) [Mass/Vol] 4.6 mmol/L 3.3-5.[address] [facility] RBC Auto (Bld) [#/Vol]Ordere d By: Keron Maciel on 11-25-2024 RBC (Bld) [#/Vol] 4.04 10*6/uL Low 4.6-6.2 [facility] Serum creatinine measurement (mass/volume)Ordered By: Keron Maciel on 11-25-2024 Creatinine [Mass/Vol] 1.60 mg/dL High 0.70-1.20 [facility] Serum glucose measurement (m ass/volume)Ordered By: Keron Maciel on 11-25-2024 Glucose [Mass/Vol] 202 mg/dL High 70-99 [facility] Serum or plasma calcium odilon urement (mass/volume)Ordered By: Keron Maciel on 11-25-2024 Calcium [Mass/Vol] 10.1 mg/dL 7.6-11.0 [facility] Serum or plasma urea nitroge n measurement (mass/volume)Ordered By: Keron Maciel on 11-25-2024 Urea nitrogen [Mass/Vol] 22 mg/dL High 4-[address] [facility] Sodium levelOrdered By: Beatrice Maciel on 11-25-2024 Sodium [Moles/Vol] 140 mmol/L 133-145 [facility] White blood cell (WBC) count Ordered By: Keron Maciel on 11-25-2024 WBC (Bld) [#/Vol] 6.2 10*3/uL 4.4-11.0 [facility] Urine Cultureon 11-22-2024 URC Normal [facility] Comment on above: Performed By: #### M 100.2200 ####[facility] [address] [place], [address] Basic Metabolic Profile (BMP )on 11-20-2024 BUN/CRE 14.4 RATIO Normal 10-[address] [facility] Comment on above: Performed By: #### L 503.7505, L100.0100, L501.9520, L501.5200, L500.2500 ####[facility] [address] [place], [address] Calcium [Mass/Vol] 10.0 mg/dL Normal 7.6-11.0 [facility] Comment on above: Performed By: #### L 503.7505, L100.0100, L501.9520, L501.5200, L500.2500 ####[facility] [address] [place], [address] Chloride [Moles/Vol] 97 mmol/L Low 98-108 [facility] Comment on above: Performed By: #### L 503.7505, L100.0100, L501.9520, L501.5200, L500.2500 ####[facility] [address] [place], [address] CO2 [Moles/Vol] 27.2 mmol/L Normal 21.0-32.[address] [facility] Comment on above: Performed By: #### L 503.7505, L100.0100, L501.9520, L501.5200, L500.2500 ####[facility] [address] [place], [address] Creatinine [Mass/Vol] 1.77 mg/dL High 0.70-1.20 [facility] Comment on above: Performed By: #### L 503.7505, L100.0100, L501.9520, L501.5200, L500.2500 ####[facility] [address] [place], [address] ECRCL 30.88 ml/min Low 50-[address] [facility] Comment on above: Performed By: #### L 503.7505, L100.0100, L501.9520, L501.5200, L500.2500 ####[facility] [address] [place], [address] GAP 13 Normal 5-[address] [facility] Comment on above: Performed By: #### L 503.7505, L100.0100, L501.9520, L501.5200, L500.2500 ####[facility] [address] [place], [address] GFR/1.73 sq M.predicted among non-blacks MDRD (S/P/Bld) [Vol rate/Area] 37 mL/min/{1.73_m2} Low >[address] [facility] Comment on above: Result Comment: mL/m in/1.73m2 CKD-EPI Creatinine Equation (2020) Performed By: #### L 503.7505, L100.0100, L501.9520, L501.5200, L500.2500 ####[facility] [address] [place], [address] Glucose [Mass/Vol] 102 mg/dL High 70-99 [facility] Comment on above: Performed By: #### L 503.7505, L100.0100, L501.9520, L501.5200, L500.2500 ####[facility] [address] [place], [address] Potassium [Moles/Vol] 4.9 mmol/L Normal 3.3-5.1 [facility] Comment on above: Result Comment: Hemo lysis present, Results??could be affected.?? Performed By: #### L 503.7505, L100.0100, L501.9520, L501.5200, L500.2500 ####[facility] [address] [place], [address] Sodium [Moles/Vol] 138 mmol/L Normal 133-145 [facility] Comment on above: Performed By: #### L 503.7505, L100.0100, L501.9520, L501.5200, L500.2500 ####[facility] [address] [place], [address] Urea nitrogen [Mass/Vol] 26 mg/dL High 4-[address] [facility] Comment on above: Performed By: #### L 503.7505, L100.0100, L501.9520, L501.5200, L500.2500 ####[facility] [address] [place], [address] L503.7505on 06-04-2025 Natriuretic peptide B (Bld) [Mass/Vol] 521 pg/mL Normal <=[address] [facility] Comment on above: Result Comment: Hear t Failure Unlikely: < 300 pg/mLHeart Failure Likely< 50 Years: > 450 pg/mL50-75 Years: > 900 pg/mL>75 Years: > 1800 pg/mL Performed By: #### L 503.7505, L100.0100, L501.9520, L501.5200, L500.2500 ####[facility] [address] [place], [address] M100.678on 11-20-2024 M100.678 SARS-CoV-2 (COVID 19 ) Negative INFLUENZA A Negative INFLUENZA B Negative RSV PCR Negative Normal [facility] Comment on above: Performed By: #### M 100.678, L400.0001 ####[facility] [address] [place], [address] Magnesiumon 11-20-2024 Magnesium [Mass/Vol] 2.1 mg/dL Normal 1.5-2.2 [facility] Comment on above: Performed By: #### L 503.7505, L100.0100, L501.9520, L501.5200, L500.2500 ####[facility] [address] [place], [address] Thyroid Stim Hormone (TSH)on 11-20-2024 TSH 1.790 uIU/mL Normal 0.300-4.[address] [facility] Comment on above: Performed By: #### L 503.7505, L100.0100, L501.9520, L501.5200, L500.2500 ####[facility] [address] [place], [address] Urinalysis, Completeon 11-20 BACTERIA 2+ /hpf Normal None Seen [facility] Comment on above: Order Comment: COLLE CTOR TO SPECIFY Performed By: #### M 100.678, L400.0001 ####[facility] [address] [place], [address] WBC 50-100 SEEN Normal 0-[address] [facility] Comment on above: Order Comment: COLLE CTOR TO SPECIFY Performed By: #### M 100.678, L400.0001 ####[facility] [address] [place], [address] 12 Lead EKGon 11-19-2024 12 Lead EKG Normal [facility] Absolute lymphocyte countOrd ered By: Helio Corrales on 11-19-2024 Lymphocytes Auto (Unsp spec) [#/Vol] 1.46 10*3/uL 0.83-4.[address] [facility] Absolute neutrophil countOrd ered By: Helio Corrales on 11-19-2024 Neutrophils (Bld) [#/Vol] 4.8 10*3/uL 2.0-7.[address] [facility] Anion gap in Serum or Plasma Ordered By: Helio Corrales on 11-19-2024 Anion gap [Moles/Vol] 13 mmol/L 5-15 [facility] Automated lymphocyte count a s percentage of total leukocytesOrdered By: Helio Corrales on 11-19-2024 Lymphocytes/100 WBC Auto (Unsp spec) 20.0 % 19-[address] [facility] BUN/creatinine ratioOrdered By: Helio Corrales on 11-19-2024 Urea nitrogen/Creatinine [Mass ratio] 14.4 mg/mg 10-[address] [facility] Basophil percentageOrdered B y: Helio Corrales on 11-19-2024 Basophils/100 WBC (Bld) 1.0 % 0-1 [facility] Bilirubin Test strip Ql (U)O rdered By: Helio Corrales on 11-19-2024 Bilirubin Ql (U) Negative Negative [facility] CBC W/Diff, Automatedon Absolute Lymph 1.46 X10 3/uL Normal 0.83-4.[address] [facility] Comment on above: Performed By: #### L 503.7505, L100.0100, L501.9520, L501.5200, L500.2500 ####[facility] [address] [place], [address] Absolute Neut 4.8 X10 3/uL Normal 2.0-7.[address] [facility] Comment on above: Performed By: #### L 503.7505, L100.0100, L501.9520, L501.5200, L500.2500 ####[facility] [address] [place], [address] Basophils/100 WBC (Bld) 1.0 % Normal 0-1 [facility] Comment on above: Performed By: #### L 503.7505, L100.0100, L501.9520, L501.5200, L500.2500 ####[facility] [address] [place], [address] Eosinophils/100 WBC (Bld) 2.1 % Normal 0-[address] [facility] Comment on above: Performed By: #### L 503.7505, L100.0100, L501.9520, L501.5200, L500.2500 ####[facility] [address] [place], [address] Erythrocyte distribution width (RBC) [Ratio] 14.6 % Normal 11.6-14.[address] [facility] Comment on above: Performed By: #### L 503.7505, L100.0100, L501.9520, L501.5200, L500.2500 ####[facility] [address] [place], [address] Hematocrit (Bld) [Volume fraction] 40.4 % Normal 40-[address] [facility] Comment on above: Performed By: #### L 503.7505, L100.0100, L501.9520, L501.5200, L500.2500 ####[facility] [address] [place], [address] Hemoglobin (Bld) [Mass/Vol] 13.4 g/dL Normal 13.0-16.[address] [facility] Comment on above: Performed By: #### L 503.7505, L100.0100, L501.9520, L501.5200, L500.2500 ####[facility] [address] [place], [address] IG% 2.300 High 0.0-0.[address] [facility] Comment on above: Result Comment: IG% - Immature Granulocytes (promyelocytes, myelocytes andmetamyelocytes) > 1% indicates that a LEFT SHIFT is Present. Performed By: #### L 503.7505, L100.0100, L501.9520, L501.5200, L500.2500 ####[facility] [address] [place], [address] Lymphocytes/100 WBC (Bld) 20.0 % Normal 19-[address] [facility] Comment on above: Performed By: #### L 503.7505, L100.0100, L501.9520, L501.5200, L500.2500 ####[facility] [address] [place], [address] MCH (RBC) [Entitic mass] 32.4 pg High 27.0-32.[address] [facility] Comment on above: Performed By: #### L 503.7505, L100.0100, L501.9520, L501.5200, L500.2500 ####[facility] [address] [place], [address] MCHC (RBC) [Mass/Vol] 33.2 g/dL Normal 32-36 [facility] Comment on above: Performed By: #### L 503.7505, L100.0100, L501.9520, L501.5200, L500.2500 ####[facility] [address] [place], [address] MCV (RBC) [Entitic vol] 97.6 fL High 80-94 [facility] Comment on above: Performed By: #### L 503.7505, L100.0100, L501.9520, L501.5200, L500.2500 ####[facility] [address] [place], [address] Monocytes/100 WBC (Bld) 9.5 % Normal 0-10 [facility] Comment on above: Performed By: #### L 503.7505, L100.0100, L501.9520, L501.5200, L500.2500 ####[facility] [address] [place], [address] Neutrophils/100 WBC (Bld) 65.1 % Normal 47-[address] [facility] Comment on above: Performed By: #### L 503.7505, L100.0100, L501.9520, L501.5200, L500.2500 ####[facility] [address] [place], [address] Nucleated RBC (Bld) [#/Vol] 0 10*3/uL Normal 0-[address] [facility] Comment on above: Performed By: #### L 503.7505, L100.0100, L501.9520, L501.5200, L500.2500 ####[facility] [address] [place], [address] Platelet mean volume (Bld) [Entitic vol] 8.8 fL Normal 6.2-12.[address] [facility] Comment on above: Performed By: #### L 503.7505, L100.0100, L501.9520, L501.5200, L500.2500 ####[facility] [address] [place], [address] Platelets (Bld) [#/Vol] 233 10*3/uL Normal 150-[address] [facility] Comment on above: Performed By: #### L 503.7505, L100.0100, L501.9520, L501.5200, L500.2500 ####[facility] [address] [place], [address] RBC (Bld) [#/Vol] 4.14 10*6/uL Low 4.6-6.2 [facility] Comment on above: Performed By: #### L 503.7505, L100.0100, L501.9520, L501.5200, L500.2500 ####[facility] [address] [place], [address] RDW SD 52.4 fl High 35.1-43.[address] [facility] Comment on above: Performed By: #### L 503.7505, L100.0100, L501.9520, L501.5200, L500.2500 ####[facility] [address] [place], [address] WBC (Bld) [#/Vol] 7.3 10*3/uL Normal 4.4-11.0 [facility] Comment on above: Performed By: #### L 503.7505, L100.0100, L501.9520, L501.5200, L500.2500 ####[facility] [address] [place], [address] Carbon dioxide, total [Moles /volume] in Central venous bloodOrdered By: Helio Corrales on 11-19-2024 CO2 [Moles/Vol] 27.2 mmol/L 21.0-32.[address] [facility] Chest PA and Lateralon 11-19 Chest PA and Lateral Normal [facility] Chloride assayOrdered By: Sharon Corrales on 11-19-2024 Chloride [Moles/Vol] 97 mmol/L Low 98-108 [facility] Emergency Department Summary on 11-19-2024 Emergency Department Summary Normal [facility] Eosinophil percentageOrdered By: Helio Corrales on 11-19-2024 Eosinophils/100 WBC (Bld) 2.1 % 0-[address] [facility] Erythrocyte distribution wid th ratioOrdered By: Helio Corrales on 11-19-2024 Erythrocyte distribution width (RBC) [Ratio] 14.6 % 11.6-14.[address] [facility] Erythrocyte distribution wid th standard deviationOrdered By: Helio Corrales on 11-19-2024 Erythrocyte distribution width (RBC) [Ratio] 52.4 fl High 35.1-43.[address] [facility] Glomerular filtration rate ( GFR) estimation/1.73 sq m using serum, plasma, or whole bOrdered By: Helio Corrales on 11-19-2024 GFR/1.73 sq M.predicted among non-blacks MDRD (S/P/Bld) [Vol rate/Area] 37 mL/min/{1.73_m2} Low >[address] [facility] Comment on above: mL/min/1.73m2 CKD-EP I Creatinine Equation (2020) Hematocrit Auto (Bld) [Volum e fraction]Ordered By: Helio Corrales on 11-19-2024 Hematocrit (Bld) [Volume fraction] 40.4 % 40-[address] [facility] Hemoglobin measurementOrdere d By: Helio Corrales on 11-19-2024 Hemoglobin (Bld) [Mass/Vol] 13.4 g/dL 13.0-16.[address] [facility] Immature granulocytes/100 WB C Auto (Bld)Ordered By: Helio Corrales on 11-19-2024 Immature granulocytes/100 WBC (Bld) 2.300 % High 0.0-0.[address] [facility] Comment on above: IG% - Immature Granu locytes (promyelocytes, myelocytes and metamyelocytes) > 1% indicates that a LEFT SHIFT is Present. Influenza virus A and B and SARS-CoV-2 (COVID-19) and Respiratory syncytial virus RNAOrdered By: Helio Corrales on 11-19-2024 SARS-CoV-2 (COVID-19) RNA VÍCTOR+probe Ql (Unsp spec) [facility] Ketones Test strip Ql (U)Ord ered By: Helio Corrales on 11-19-2024 Ketones Ql (U) Negative Negative [facility] MCV (mean corpuscular volume ) determinationOrdered By: Helio Corrales on 11-19-2024 MCV (RBC) [Entitic vol] 97.6 fL High 80-94 [facility] Magnesium measurement (mass/ volume)Ordered By: Helio Corrales on 11-19-2024 Magnesium (Unsp spec) [Mass/Vol] 2.1 mg/dL 1.5-2.[address] [facility] Mean corpuscular hemoglobin (MCH) determinationOrdered By: Helio Corrales on 11-19-2024 MCH (RBC) [Entitic mass] 32.4 pg High 27.0-32.[address] [facility] Mean corpuscular hemoglobin concentration (MCHC) determinationOrdered By: Helio Corrales on 11-19-2024 MCHC (RBC) [Mass/Vol] 33.2 g/dL 32-36 [facility] Mean platelet volume determi nationOrdered By: Helio Corralse on 11-19-2024 Platelet mean volume (Bld) [Entitic vol] 8.8 fL 6.2-12.[address] [facility] Microscopic analysis of urin e for red blood cells (RBC)Ordered By: Helio Corrales on 11-19-2024 Microscopic analysis of urine for red blood cells (RBC) 0 SEEN /hpf 0-[address] [facility] Monocyte percentageOrdered B y: Helio Corrales on 11-19-2024 Monocytes/100 WBC (Bld) 9.5 % 0-10 [facility] Mucus LM Ql (Urine sed)Order ed By: Helio Corrales on 11-19-2024 Mucus Ql (Urine sed) 0 SEEN /hpf [facility] Natriuretic peptide.B prohor lam N-Terminal [Mass/volume] in Serum or PlasmaOrdered By: Helio Corrales on 11-19-2024 Natriuretic peptide.B prohormone N-Terminal [Mass/Vol] 521 pg/mL <[address] [facility] Comment on above: Heart Failure Unlike ly: < 300 pg/mLHeart Failure Likely< 50 Years: > 450 pg/mL50-75 Years: > 900 pg/mL>75 Years: > 1800 pg/mL Neutrophil percentageOrdered By: Helio Corrales on 11-19-2024 Neutrophils/100 WBC (Bld) 65.1 % 47-[address] [facility] Nitrite Test strip Ql (U)Ord ered By: Helio Corrales on 11-19-2024 Nitrite Ql (U) Negative Negative [facility] Nucleated red blood cell per centageOrdered By: Helio Corrales on 11-19-2024 Nucleated RBC/100 WBC (Bld) [Ratio] 0 % 0-[address] [facility] Platelet countOrdered By: Sharon Corrales on 11-19-2024 Platelets (Bld) [#/Vol] 233 10*3/uL 150-[address] [facility] Potassium measurement (mass/ volume)Ordered By: Helio Corrales on 11-19-2024 Potassium (Unsp spec) [Mass/Vol] 4.9 mmol/L 3.3-5.[address] [facility] Comment on above: Hemolysis present, R esults could be affected. Protein Test strip Ql (U)Ord ered By: Helio Corrales on 11-19-2024 Protein Ql (U) 30 mg/dl High Negative [facility] RBC Auto (Bld) [#/Vol]Ordere d By: Helio Corrales on 11-19-2024 RBC (Bld) [#/Vol] 4.14 10*6/uL Low 4.6-6.2 [facility] Serum creatinine measurement (mass/volume)Ordered By: Helio Corrales on 11-19-2024 Creatinine [Mass/Vol] 1.77 mg/dL High 0.70-1.20 [facility] Serum glucose measurement (m ass/volume)Ordered By: Helio Corrales on 11-19-2024 Glucose [Mass/Vol] 102 mg/dL High 70-99 [facility] Serum or plasma calcium odilon urement (mass/volume)Ordered By: Helio Corrales on 11-19-2024 Calcium [Mass/Vol] 10.0 mg/dL 7.6-11.0 [facility] Serum or plasma urea nitroge n measurement (mass/volume)Ordered By: Helio Corrales on 11-19-2024 Urea nitrogen [Mass/Vol] 26 mg/dL High 4-[address] [facility] Sodium levelOrdered By: Soto Corrales on 11-19-2024 Sodium [Moles/Vol] 138 mmol/L 133-145 [facility] Squamous epithelial cells de tection in urine sediment by light microscopyOrdered By: Helio Corrales on 11-19-2024 Epithelial cells.squamous LM Ql (Urine sed) 0 SEEN /hpf 0-[address] [facility] TSH DL <= 0.005 mIU/L QnOrde red By: Helio Corrales on 11-19-2024 TSH Qn 1.790 uIU/mL 0.300-4.[address] [facility] Urinalysis, Completeon 11-19 EPI,SQUAMOUS 0 SEEN Normal 0-[address] [facility] Comment on above: Order Comment: LOIS CTOR TO SPECIFY Performed By: #### M 100.678, L400.0001 ####[facility] [address] [place], [address] Mucus Ql (Urine sed) 0 SEEN Normal [facility] Comment on above: Order Comment: LOIS CTOR TO SPECIFY Performed By: #### M 100.678, L400.0001 ####[facility] [address] [place], [address] RBC 0 SEEN Normal 0-[address] [facility] Comment on above: Order Comment: LOIS CTOR TO SPECIFY Performed By: #### M 100.678, L400.0001 ####[facility] [address] [place], [address] Urine clarityOrdered By: Jovany Corrales on 11-19-2024 Clarity (U) Sl. Cloudy Clear [facility] Urine color determinationOrd ered By: Helio Corrales on 11-19-2024 Color (U) Yellow Yellow [facility] Urine cultureOrdered By: Jovany Corrales on 11-19-2024 Bacteria identified Cx Nom (U) Enterobacter cloacae complex Abnormal [facility] Urine glucose detectionOrder ed By: Helio Corrales on 11-19-2024 Glucose Ql (U) Normal mg/dl Normal [facility] Urine leukocyte esterase det ection by dipstickOrdered By: Helio Corrales on 11-19-2024 Leukocyte esterase Test strip Ql (U) 500 /ul High Negative [facility] Urine pHOrdered By: Helio arndle on 11-19-2024 pH (U) 6.0 [pH] 5.0 - 8.[address] [facility] Urine sediment bacteria coun t by microscopy (number/high power field)Ordered By: Helio Corrales on 11-19-2024 Bacteria LM.HPF (Urine sed) [#/Area] 2 /[HPF] None Seen [facility] Urine specific gravity measu rementOrdered By: Helio Corrales on 11-19-2024 Specific gravity (U) [Rel density] 1.015 1.002-1.[address] [facility] Urine urobilinogen measureme ntOrdered By: Helio Corrales on 11-19-2024 Urobilinogen Ql (U) Normal mg/dl Normal [facility] White blood cell (WBC) count Ordered By: Helio Corrales on 11-19-2024 WBC (Bld) [#/Vol] 7.3 10*3/uL [facility] White blood cell countOrdere d By: Helio Corrales on 11-19-2024 White blood cell count 50-100 SEEN /hpf 0-[address] [facility] CNOVon 09-06-2024 CNOV Office Visit (PODIWS ) OLMAN SYED ([id number]) 1935 M Date Time Provider Department 09/06/24 1:20 PM BARBIE NOVA PODIWS During your visit [...] is to RTC in 3-4 months. EMILY Dfuf Matthew 3/21/2025 1:58 PM Signed Diabetes Foot Care Instructions [...] (or decreased sensation in your feet) a field test engineer should always cut your toenails. Be Careful [...] more t (more content not included)... Normal [facility] Neurology Visit Reporton Neurology Visit Report Normal [facility] MR/BMS.IMBon 07-25-2024 MR/BMS.IMB Normal [facility] Cerv Spine 2 or 3 Viewson Cerv Spine 2 or 3 Views Normal [facility] MR/BMS.IMBon 06-24-2024 MR/BMS.IMB Normal [facility] Bedside Glucoseon 06-16-2024 FINGERSTICK GLU 219 mg/dL High 74-[address] [facility] Comment on above: Result Comment: NAGI GEMENT OF PATIENT CARE PER NURSING PROTOCOL Performed By: #### L 501.080 ####[facility] [address] [place], [address] FINGERSTICK GLU 130 mg/dL High 74-[address] [facility] Comment on above: Result Comment: NAGI GEMENT OF PATIENT CARE PER NURSING PROTOCOL Performed By: #### L 501.080 ####[facility] [address] [place], [address] Discharge Instructionon 05-20 Discharge Instruction Normal [facility] Urine Drug Screen (VISTA)on 06-16-2024 AMPHETAMINES Negative Normal <1000 ng/mL [facility] Comment on above: Order Comment: SENT LABEL TO PCU TO COLLECT Performed By: #### L 501.4020, L501.9100, L501.9520, L505.5000, L506.0250, L500.4100, L503.0105 ####[facility] [address] [place], [address] BARBITIURATES Negative Normal < 200 ng/mL [facility] Comment on above: Order Comment: SENT LABEL TO PCU TO COLLECT Performed By: #### L 501.4020, L501.9100, L501.9520, L505.5000, L506.0250, L500.4100, L503.0105 ####[facility] [address] [place], [address] BENZODIAZIPINE Negative Normal < 200 ng/mL [facility] Comment on above: Order Comment: SENT LABEL TO PCU TO COLLECT Performed By: #### L 501.4020, L501.9100, L501.9520, L505.5000, L506.0250, L500.4100, L503.0105 ####[facility] [address] [place], [address] COCAINE Negative Normal < 300 ng/mL [facility] Comment on above: Order Comment: SENT LABEL TO U TO COLLECT Performed By: #### L 501.4020, L501.9100, L501.9520, L505.5000, L506.0250, L500.4100, L503.0105 ####[facility] [address] [place], [address] ECSTACY Negative Normal < 500 ng/mL [facility] Comment on above: Order Comment: SENT LABEL TO U TO COLLECT Performed By: #### L 501.4020, L501.9100, L501.9520, L505.5000, L506.0250, L500.4100, L503.0105 ####[facility] [address] [place], [address] METHADONE Negative Normal < 300 ng/mL [facility] Comment on above: Order Comment: SENT LABEL TO U TO COLLECT Performed By: #### L 501.4020, L501.9100, L501.9520, L505.5000, L506.0250, L500.4100, L503.0105 ####[facility] [address] [place], [address] OPIATES Negative Normal < 300 ng/mL [facility] Comment on above: Order Comment: SENT LABEL TO PCU TO COLLECT Performed By: #### L 501.4020, L501.9100, L501.9520, L505.5000, L506.0250, L500.4100, L503.0105 ####[facility] [address] [place], [address] PCP Negative Normal < 25 ng/mL [facility] Comment on above: Order Comment: SENT LABEL TO PCU TO COLLECT Performed By: #### L 501.4020, L501.9100, L501.9520, L505.5000, L506.0250, L500.4100, L503.0105 ####[facility] [address] [place], [place], [id number] THC Negative Normal < 50 ng/mL [facility] Comment on above: Order Comment: SENT LABEL TO PCU TO COLLECT Performed By: #### L 501.4020, L501.9100, L501.9520, L505.5000, L506.0250, L500.4100, L503.0105 ####[facility] [address] [place], [place], [id number] VISTA UDS PH [address] [facility] Comment on above: Order Comment: SENT LABEL TO PCU TO COLLECT Performed By: #### L 501.4020, L501.9100, L501.9520, L505.5000, L506.0250, L500.4100, L503.0105 ####[facility] [address] [place], [place], [id number] Alcohol, Blood (Medical)-Ser umon 06-15-2024 SERUM ETOH < 3.[address] [facility] Comment on above: Result Comment: The serum:whole blood ethanol ratio is approximately 1.14and varies slightly with hematocrit.Medical Alcohol reference interval and critical value innon-tolerant individuals; 50 - 100 Impairment 100 Intoxication 100 - 250 Severe Poisoning 250 - 400 Deep/possible fatal coma Performed By: #### L 501.4020, L501.9100, L501.9520, L505.5000, L506.0250, L500.4100, L503.0105 ####[facility] [address] [place], [place], [id number] Bedside Glucoseon 06-15-2024 FINGERSTICK GLU 117 mg/dL High 74-[address] [facility] Comment on above: Result Comment: NAGI GEMENT OF PATIENT CARE PER NURSING PROTOCOL Performed By: #### L 501.080 ####[facility] [address] [place], [address] FINGERSTICK GLU 125 mg/dL High 74-[address] [facility] Comment on above: Result Comment: NAGI GEMENT OF PATIENT CARE PER NURSING PROTOCOL Performed By: #### L 501.080 ####[facility] [address] [place], [address] FINGERSTICK GLU 150 mg/dL High 74-[address] [facility] Comment on above: Result Comment: NAGI GEMENT OF PATIENT CARE PER NURSING PROTOCOL Performed By: #### L 501.080 ####[facility] [address] [place], [address] FINGERSTICK GLU 103 mg/dL Normal 74-[address] [facility] Comment on above: Result Comment: NAGI GEMENT OF PATIENT CARE PER NURSING PROTOCOL Performed By: #### L 501.080 ####[facility] [address] [place], [address] FINGERSTICK GLU 66 mg/dL Low 74-[address] [facility] Comment on above: Result Comment: NAGI GEMENT OF PATIENT CARE PER NURSING PROTOCOL Performed By: #### L 501.080 ####[facility] [address] [place], [address] FINGERSTICK GLU 69 mg/dL Low 74-[address] [facility] Comment on above: Result Comment: NAGI GEMENT OF PATIENT CARE PER NURSING PROTOCOL Performed By: #### L 501.080 ####[facility] [address] [place], [address] Brain without Contraston Brain without Contrast Normal [facility] CBC W/Diff, Automatedon -2 ACANTHOCYTE RARE Normal [facility] Comment on above: Performed By: #### L 501.5200, L501.4020, L501.2300, L100.0100, L501.9985, L500.4050 ####[facility] [address] [place], [address] Anisocytosis Ql (Bld) 2+ Normal [facility] Comment on above: Performed By: #### L 501.5200, L501.4020, L501.2300, L100.0100, L501.9985, L500.4050 ####[facility] [address] [place], [address] CRENATED RBC 1+ Normal [facility] Comment on above: Performed By: #### L 501.5200, L501.4020, L501.2300, L100.0100, L501.9985, L500.4050 ####[facility] [address] [place], [address] MACROCYTOSIS 1+ Normal [facility] Comment on above: Performed By: #### L 501.5200, L501.4020, L501.2300, L100.0100, L501.9985, L500.4050 ####[facility] [address] [place], [address] MICROCYTIC 1+ Normal [facility] Comment on above: Performed By: #### L 501.5200, L501.4020, L501.2300, L100.0100, L501.9985, L500.4050 ####[facility] [address] [place], [address] POLYCHROMASIA 1+ Normal [facility] Comment on above: Performed By: #### L 501.5200, L501.4020, L501.2300, L100.0100, L501.9985, L500.4050 ####[facility] [address] [place], [address] SCHISTOCYTES RARE Normal [facility] Comment on above: Performed By: #### L 501.5200, L501.4020, L501.2300, L100.0100, L501.9985, L500.4050 ####[facility] [address] [place], [address] TARGET CELLS 2+ Normal [facility] Comment on above: Performed By: #### L 501.5200, L501.4020, L501.2300, L100.0100, L501.9985, L500.4050 ####[facility] [address] [place], [address] TEAR DROP 1+ Normal [facility] Comment on above: Performed By: #### L 501.5200, L501.4020, L501.2300, L100.0100, L501.9985, L500.4050 ####[facility] [address] [place], [address] SMEAR COMMENT SCANNED Normal [facility] Comment on above: Performed By: #### L 501.5200, L501.4020, L501.2300, L100.0100, L501.9985, L500.4050 ####[facility] [address] [place], [address] Anisocytosis Ql (Bld) 2+ Normal [facility] Comment on above: Performed By: #### L 100.0100, L300.4310, L300.3900 ####[facility] [address] [place], [address] HYPOCHROMASIA RARE Normal [facility] Comment on above: Performed By: #### L 100.0100, L300.4310, L300.3900 ####[facility] [address] [place], [address] PLT EST ADEQUATE Normal ADEQ [facility] Comment on above: Performed By: #### L 501.5200, L501.4020, L501.2300, L100.0100, L501.9985, L500.4050 ####[facility] [address] [place], [address] Performed By: #### L 100.0100, L300.4310, L300.3900 ####[facility] [address] [place], [address] Comprehensive Metabolic Prof ilon 06-15-2024 Albumin [Mass/Vol] 3.0 g/dL Low 3.2-5.0 [facility] Comment on above: Order Comment: Comme nts: SPECIMEN #2'TROP' Serial specimen #1, #2 or #3: 2 Performed By: #### L 501.5200, L501.4020, L501.2300, L100.0100, L501.9985, L500.4050 ####[facility] [address] [place], [address] Albumin/Globulin [Mass ratio] 1.1 {ratio} Normal 0.9-2.[address] [facility] Comment on above: Order Comment: Comme nts: SPECIMEN #2'TROP' Serial specimen #1, #2 or #3: 2 Performed By: #### L 501.5200, L501.4020, L501.2300, L100.0100, L501.9985, L500.4050 ####[facility] [address] [place], [address] ALK P 50 U/L Normal 45-[address] [facility] Comment on above: Order Comment: Comme nts: SPECIMEN #2'TROP' Serial specimen #1, #2 or #3: 2 Performed By: #### L 501.5200, L501.4020, L501.2300, L100.0100, L501.9985, L500.4050 ####[facility] [address] [place], [address] ALT [Catalytic activity/Vol] 7 U/L Low 16-[address] [facility] Comment on above: Order Comment: Comme nts: SPECIMEN #2'TROP' Serial specimen #1, #2 or #3: 2 Performed By: #### L 501.5200, L501.4020, L501.2300, L100.0100, L501.9985, L500.4050 ####[facility] [address] [place], [address] AST [Catalytic activity/Vol] 7 U/L Low 15-[address] [facility] Comment on above: Order Comment: Comme nts: SPECIMEN #2'TROP' Serial specimen #1, #2 or #3: 2 Performed By: #### L 501.5200, L501.4020, L501.2300, L100.0100, L501.9985, L500.4050 ####[facility] [address] [place], [address] Bilirubin [Mass/Vol] 0.70 mg/dL Normal 0.20-1.00 [facility] Comment on above: Order Comment: Comme nts: SPECIMEN #2'TROP' Serial specimen #1, #2 or #3: 2 Result Comment: For patients on eltrombopag therapy, use of Dimension [place] TBIL is not recommended. Performed By: #### L 501.5200, L501.4020, L501.2300, L100.0100, L501.9985, L500.4050 ####[facility] [address] [place], [address] BUN/CRE 12.4 RATIO Normal 10-[address] [facility] Comment on above: Order Comment: Comme nts: SPECIMEN #2'TROP' Serial specimen #1, #2 or #3: 2 Performed By: #### L 501.5200, L501.4020, L501.2300, L100.0100, L501.9985, L500.4050 ####[facility] [address] [place], [address] CA,Total 8.9 mg/dL Normal 8.5-10.[address] [facility] Comment on above: Order Comment: Comme nts: SPECIMEN #2'TROP' Serial specimen #1, #2 or #3: 2 Performed By: #### L 501.5200, L501.4020, L501.2300, L100.0100, L501.9985, L500.4050 ####[facility] [address] [place], [address] Chloride [Moles/Vol] 102 mmol/L Normal 98-107 [facility] Comment on above: Order Comment: Comme nts: SPECIMEN #2'TROP' Serial specimen #1, #2 or #3: 2 Performed By: #### L 501.5200, L501.4020, L501.2300, L100.0100, L501.9985, L500.4050 ####[facility] [address] [place], [address] CO2 [Moles/Vol] 29.0 mmol/L Normal 21.0-32.[address] [facility] Comment on above: Order Comment: Comme nts: SPECIMEN #2'TROP' Serial specimen #1, #2 or #3: 2 Performed By: #### L 501.5200, L501.4020, L501.2300, L100.0100, L501.9985, L500.4050 ####[facility] [address] [place], [address] Creatinine [Mass/Vol] 2.25 mg/dL High 0.70-1.30 [facility] Comment on above: Order Comment: Comme nts: SPECIMEN #2'TROP' Serial specimen #1, #2 or #3: 2 Result Comment: The validity of the calculated GFR GFRAA in patients over70 years has not been determined. Clinical correlation isessential. Performed By: #### L 501.5200, L501.4020, L501.2300, L100.0100, L501.9985, L500.4050 ####[facility] [address] [place], [address] ECRCL 27.67 ml/min Normal [facility] Comment on above: Order Comment: Comme nts: SPECIMEN #2'TROP' Serial specimen #1, #2 or #3: 2 Performed By: #### L 501.5200, L501.4020, L501.2300, L100.0100, L501.9985, L500.4050 ####[facility] [address] [place], [address] EST GFR - AA 36 mL/min Low >[address] [facility] Comment on above: Order Comment: Comme nts: SPECIMEN #2'TROP' Serial specimen #1, #2 or #3: 2 Result Comment: Afri can Burmese GFR Calc Performed By: #### L 501.5200, L501.4020, L501.2300, L100.0100, L501.9985, L500.4050 ####[facility] [address] [place], [address] GAP 6 Normal 5-[address] [facility] Comment on above: Order Comment: Comme nts: SPECIMEN #2'TROP' Serial specimen #1, #2 or #3: 2 Performed By: #### L 501.5200, L501.4020, L501.2300, L100.0100, L501.9985, L500.4050 ####[facility] [address] [place], [address] GFR/1.73 sq M.predicted among non-blacks MDRD (S/P/Bld) [Vol rate/Area] 30 mL/min/{1.73_m2} Low >[address] [facility] Comment on above: Order Comment: Comme nts: SPECIMEN #2'TROP' Serial specimen #1, #2 or #3: 2 Result Comment: Non- GFR Calc Performed By: #### L 501.5200, L501.4020, L501.2300, L100.0100, L501.9985, L500.4050 ####[facility] [address] [place], [address] Globulin (S) [Mass/Vol] 2.7 g/dL Normal 2.2-4.2 [facility] Comment on above: Order Comment: Comme nts: SPECIMEN #2'TROP' Serial specimen #1, #2 or #3: 2 Performed By: #### L 501.5200, L501.4020, L501.2300, L100.0100, L501.9985, L500.4050 ####[facility] [address] [place], [address] Glucose [Mass/Vol] 80 mg/dL Normal 74-106 [facility] Comment on above: Order Comment: Comme nts: SPECIMEN #2'TROP' Serial specimen #1, #2 or #3: 2 Performed By: #### L 501.5200, L501.4020, L501.2300, L100.0100, L501.9985, L500.4050 ####[facility] [address] [place], [address] Potassium [Moles/Vol] 3.5 mmol/L Normal 3.5-5.1 [facility] Comment on above: Order Comment: Comme nts: SPECIMEN #2'TROP' Serial specimen #1, #2 or #3: 2 Performed By: #### L 501.5200, L501.4020, L501.2300, L100.0100, L501.9985, L500.4050 ####[facility] [address] [place], [address] Sodium [Moles/Vol] 137 mmol/L Normal 136-145 [facility] Comment on above: Order Comment: Comme nts: SPECIMEN #2'TROP' Serial specimen #1, #2 or #3: 2 Performed By: #### L 501.5200, L501.4020, L501.2300, L100.0100, L501.9985, L500.4050 ####[facility] [address] [place], [address] T PROT 5.7 g/dL Low 6.4-8.[address] [facility] Comment on above: Order Comment: Comme nts: SPECIMEN #2'TROP' Serial specimen #1, #2 or #3: 2 Performed By: #### L 501.5200, L501.4020, L501.2300, L100.0100, L501.9985, L500.4050 ####[facility] [address] [place], [address] Urea nitrogen [Mass/Vol] 28 mg/dL High 7- [facility] Comment on above: Order Comment: Comme nts: SPECIMEN #2'TROP' Serial specimen #1, #2 or #3: 2 Performed By: #### L 501.5200, L501.4020, L501.2300, L100.0100, L501.9985, L500.4050 ####[facility] [address] [place], [address] Echo Complete W/ Contraston 06-15-2024 Echo Complete W/ Contrast Normal [facility] Emergency Department Summary on 06-15-2024 Emergency Department Summary Normal [facility] Folates, (Folic Acid)on 05-20 FOLATES 8.00 ng/mL Normal 3.1-55.[address] [facility] Comment on above: Order Comment: Has P atient had X-rays with Contrast this admission? N'TROP' Serial specimen #1, #2 or #3: 1Y Performed By: #### L 501.4020, L501.9100, L501.9520, L505.5000, L506.0250, L500.4100, L503.0105 ####[facility] [address] [place], [address] H AND P Exam - Hospitaliston 06-15-2024 H&P Exam - Hospitalist Normal [facility] Hemoglobin A1con 06-15-2024 HbA1c (Bld) [Mass fraction] 6.2 % High 3.8-5.[address] [facility] Comment on above: Result Comment: Norm al < 5.7 % Prediabetic 5.7 - 6.4 % Diabetic >or= 6.5 % Please note range changes. Performed By: #### L 501.5200, L501.4020, L501.2300, L100.0100, L501.9985, L500.4050 ####[facility] [address] [place], [address] L501.4020on 06-15-2024 TROPONIN-I HS 33 pg/mL Normal 3.0-78.[address] [facility] Comment on above: Order Comment: Comme nts: SPECIMEN #3'TROP' Serial specimen #1, #2 or #3: 3 Result Comment: Plea se Note: New Test Units and Gender Specific Reference Ranges. For more information see Policy Stat Procedure [place] High Sensitivity Troponin (TNIH) and attachments. Performed By: #### L 501.4020 ####[facility] [address] [place], [address] TROPONIN-I HS 31 pg/mL Normal 3.0-78.[address] [facility] Comment on above: Order Comment: Comme nts: SPECIMEN #2'TROP' Serial specimen #1, #2 or #3: 2 Result Comment: Plea se Note: New Test Units and Gender Specific Reference Ranges. For more information see Policy Stat Procedure [place] High Sensitivity Troponin (TNIH) and attachments. Performed By: #### L 501.5200, L501.4020, L501.2300, L100.0100, L501.9985, L500.4050 ####[facility] [address] [place], [address] TROPONIN-I HS 35 pg/mL Normal 3.0-78.[address] [facility] Comment on above: Order Comment: Has P atient had X-rays with Contrast this admission? N'TROP' Serial specimen #1, #2 or #3: 1Y Result Comment: Loly varela Note: New Test Units and Gender Specific Reference Ranges. For more information see Policy Stat Procedure [place] High Sensitivity Troponin (TNIH) and attachments. Performed By: #### L 501.4020, L501.9100, L501.9520, L505.5000, L506.0250, L500.4100, L503.0105 ####[facility] [address] [place], [address] Lipid Profileon 06-15-2024 Cholesterol [Mass/Vol] 148 mg/dL Normal 200 [facility] Comment on above: Order Comment: Has Manda chavez had X-rays with Contrast this admission? N'TROP' Serial specimen #1, #2 or #3: 1Y Result Comment: <200 mg/dL Desirable 200-240 mg/dL Borderline >240 mg/dL High Risk Performed By: #### L 501.4020, L501.9100, L501.9520, L505.5000, L506.0250, L500.4100, L503.0105 ####[facility] [address] [place], [address] Cholesterol in HDL [Mass/Vol] 46 mg/dL Normal [facility] Comment on above: Order Comment: Has Manda chavez had X-rays with Contrast this admission? N'TROP' Serial specimen #1, #2 or #3: 1Y Result Comment: The drugs N-Acetylcysteine and Metamizole may falselydepress this assay. Reference Range HDL <40 mg/dL Low HDL Cholesterol HDL >or= 60 mg/dL High HDL Cholesterol Performed By: #### L 501.4020, L501.9100, L501.9520, L505.5000, L506.0250, L500.4100, L503.0105 ####[facility] [address] [place], [address] Cholesterol in LDL [Mass/Vol] 64 mg/dL Normal 0-[address] [facility] Comment on above: Order Comment: Has Manda chavez had X-rays with Contrast this admission? N'TROP' Serial specimen #1, #2 or #3: 1Y Performed By: #### L 501.4020, L501.9100, L501.9520, L505.5000, L506.0250, L500.4100, L503.0105 ####[facility] [address] [place], [address] Cholesterol in VLDL [Mass/Vol] 38 mg/dL Normal 5-[address] [facility] Comment on above: Order Comment: Has Manda chavez had X-rays with Contrast this admission? N'TROP' Serial specimen #1, #2 or #3: 1Y Performed By: #### L 501.4020, L501.9100, L501.9520, L505.5000, L506.0250, L500.4100, L503.0105 ####[facility] [address] [place], [address] Triglyceride [Mass/Vol] 189 mg/dL Normal [facility] Comment on above: Order Comment: Has Manda chavez had X-rays with Contrast this admission? N'TROP' Serial specimen #1, #2 or #3: 1Y Result Comment: The drugs N-Acetylcysteine and Metamizole may falselydepress this assay.Serum Triglycerides Reference Interval Normal <150 mg/dL Borderline high 150 - 199 mg/dL High 200 - 499 mg/dL Very High > or = 500 mg/dL Performed By: #### L 501.4020, L501.9100, L501.9520, L505.5000, L506.0250, L500.4100, L503.0105 ####[facility] [address] [place], [address] Magnesiumon 06-15-2024 Magnesium [Mass/Vol] 1.7 mg/dL Normal 1.6-2.6 [facility] Comment on above: Order Comment: Comme nts: SPECIMEN #2'TROP' Serial specimen #1, #2 or #3: 2 Performed By: #### L 501.5200, L501.4020, L501.2300, L100.0100, L501.9985, L500.4050 ####[facility] [address] [place], [address] Partial Thromboplast Timeon 06-15-2024 aPTT Coag (Bld) [Time] 26.1 s Normal 24.1-36.2 [facility] Comment on above: Performed By: #### L 100.0100, L300.4310, L300.3900 ####[facility] [address] [place], [address] Phosphoruson 06-15-2024 Phosphate [Mass/Vol] 4.3 mg/dL Normal 2.5-4.9 [facility] Comment on above: Order Comment: Comme nts: SPECIMEN #2'TROP' Serial specimen #1, #2 or #3: 2 Performed By: #### L 501.5200, L501.4020, L501.2300, L100.0100, L501.9985, L500.4050 ####[facility] [address] [place], [address] Prothrombin Time w/INRon INR Coag (PPP) [Relative time] 1.2 {INR} Normal [facility] Comment on above: Performed By: #### L 100.0100, L300.4310, L300.3900 ####[facility] [address] [place], [address] PT Coag (PPP) [Time] 15.0 s High 11.7-14.9 [facility] Comment on above: Performed By: #### L 100.0100, L300.4310, L300.3900 ####[facility] [address] [place], [address] Thyroid Stim Hormone (TSH)on 06-15-2024 TSH 3.230 uIU/mL Normal 0.358-3.[address] [facility] Comment on above: Order Comment: Has P kathy had X-rays with Contrast this admission? N'TROP' Serial specimen #1, #2 or #3: 1Y Performed By: #### L 501.4020, L501.9100, L501.9520, L505.5000, L506.0250, L500.4100, L503.0105 ####[facility] [address] [place], [address] Vitamin B12on 06-15-2024 Cobalamin (Vitamin B12) [Mass/Vol] pg/mL High 211-[address] [facility] Comment on above: Performed By: #### L 501.4020, L501.9100, L501.9520, L505.5000, L506.0250, L500.4100, L503.0105 ####[facility] [address] [place], [address] 12 Lead EKGon 06-14-2024 12 Lead EKG Normal [facility] Basic Metabolic Profile (BMP )on 06-14-2024 BUN/CRE 11.6 RATIO Normal 10-[address] [facility] Comment on above: Performed By: #### L 500.2500, L501.5200 ####[facility] [address] [place], [address] CA,Total 9.5 mg/dL Normal 8.5-10.[address] [facility] Comment on above: Performed By: #### L 500.2500, L501.5200 ####[facility] [address] [place], [address] Chloride [Moles/Vol] 102 mmol/L Normal 98-107 [facility] Comment on above: Performed By: #### L 500.2500, L501.5200 ####[facility] [address] [place], [address] CO2 [Moles/Vol] 21.0 mmol/L Normal 21.0-32.[address] [facility] Comment on above: Performed By: #### L 500.2500, L501.5200 ####[facility] [address] [place], [address] Creatinine [Mass/Vol] 2.25 mg/dL High 0.70-1.30 [facility] Comment on above: Result Comment: The validity of the calculated GFR GFRAA in patients over70 years has not been determined. Clinical correlation isessential. Performed By: #### L 500.2500, L501.5200 ####[facility] [address] [place], [address] ECRCL 25.79 ml/min Normal [facility] Comment on above: Performed By: #### L 500.2500, L501.5200 ####[facility] [address] [place], [address] EST GFR - AA 36 mL/min Low >[address] [facility] Comment on above: Result Comment: Afri can Burmese GFR Calc Performed By: #### L 500.2500, L501.5200 ####[facility] [address] [place], [address] GAP 14 Normal 5-[address] [facility] Comment on above: Performed By: #### L 500.2500, L501.5200 ####[facility] [address] [place], [address] GFR/1.73 sq M.predicted among non-blacks MDRD (S/P/Bld) [Vol rate/Area] 30 mL/min/{1.73_m2} Low >[address] [facility] Comment on above: Result Comment: Non- GFR Calc Performed By: #### L 500.2500, L501.5200 ####[facility] [address] [place], [address] Glucose [Mass/Vol] 120 mg/dL High 74-106 [facility] Comment on above: Result Comment: Fast ing Glucose result from 100 to 125 mg/dLsuggests IMPAIRED HOMEOSTASIS per A.D.A. criteria. Performed By: #### L 500.2500, L501.5200 ####[facility] [address] [place], [address] Potassium [Moles/Vol] 3.9 mmol/L Normal 3.5-5.1 [facility] Comment on above: Result Comment: Slig ht Hemolysis, Result may be falsely increased. Performed By: #### L 500.2500, L501.5200 ####[facility] [address] [place], [address] Sodium [Moles/Vol] 136 mmol/L Normal 136-145 [facility] Comment on above: Performed By: #### L 500.2500, L501.5200 ####[facility] [address] [place], [address] Urea nitrogen [Mass/Vol] 26 mg/dL High 7-[address] [facility] Comment on above: Performed By: #### L 500.2500, L501.5200 ####[facility] [address] [place], [address] Brain/Head without Contrasto n 06-14-2024 Brain/Head without Contrast Normal [facility] Magnesiumon 06-14-2024 Magnesium [Mass/Vol] 1.8 mg/dL Normal 1.6-2.6 [facility] Comment on above: Result Comment: Slig ht Hemolysis, Result may be falsely increased. Performed By: #### L 500.2500, L501.5200 ####[facility] [address] [place], [address] CNOVon 06-06-2024 CNOV Office Visit (PODIWS ) OLMAN SYED ([id number]) 1935 M Date Time Provider Department 06/06/24 [...] (or decreased sensation in your feet) a field test engineer should always cut your toenails. Be Careful [...] Go to your health care provider or field test engineer to treat these conditions. Barbie Nova 07/20/2024 [...] DP and (more content not included)... Normal [facility] MR/BMS.IMBon 05-20-2024 MR/BMS.IMB Normal [facility] CBC W/Diff, Automatedon 11- Absolute Lymph 1.31 X10 3/uL Normal 0.83-4.[address] [facility] Comment on above: Performed By: #### L 501.81322, L501.9910, L501.9985, L501.9520, L500.4100, L500.4050, L503.0105, L506.0400, L501.5200, L100.0100 ####[facility] [address] [place], [place], [phone] Absolute Neut 3.7 X10 3/uL Normal 2.0-7.[address] [facility] Comment on above: Performed By: #### L 501.46770, L501.9910, L501.9985, L501.9520, L500.4100, L500.4050, L503.0105, L506.0400, L501.5200, L100.0100 ####[facility] [address] [place], [place], [phone] Basophils/100 WBC (Bld) 0.9 % Normal 0-1 [facility] Comment on above: Performed By: #### L 501.31974, L501.9910, L501.9985, L501.9520, L500.4100, L500.4050, L503.0105, L506.0400, L501.5200, L100.0100 ####[facility] [address] [place], [place], [phone] Eosinophils/100 WBC (Bld) 8.9 % High 0-[address] [facility] Comment on above: Performed By: #### L 501.87000, L501.9910, L501.9985, L501.9520, L500.4100, L500.4050, L503.0105, L506.0400, L501.5200, L100.0100 ####[facility] [address] [place], [phone]) Erythrocyte distribution width (RBC) [Ratio] 19.1 % High 11.6-14.[address] [facility] Comment on above: Performed By: #### L 501.50861, L501.9910, L501.9985, L501.9520, L500.4100, L500.4050, L503.0105, L506.0400, L501.5200, L100.0100 ####[facility] [address] [facility] [place], [place], [phone]) Hematocrit (Bld) [Volume fraction] 32.2 % Low 40-[address] [facility] Comment on above: Performed By: #### L 501.91510, L501.9910, L501.9985, L501.9520, L500.4100, L500.4050, L503.0105, L506.0400, L501.5200, L100.0100 ####[facility] [address] [facility] [place], [address](971) Hemoglobin (Bld) [Mass/Vol] 9.9 g/dL Low 13.0-16.[address] [facility] Comment on above: Performed By: #### L 501.54750, L501.9910, L501.9985, L501.9520, L500.4100, L500.4050, L503.0105, L506.0400, L501.5200, L100.0100 ####[facility] [address] [place], [address] IG% 0.800 Normal 0.0-0.[address] [facility] Comment on above: Result Comment: IG% - Immature Granulocytes (promyelocytes, myelocytes andmetamyelocytes) > 1% indicates that a LEFT SHIFT is Present. Performed By: #### L 501.45729, L501.9910, L501.9985, L501.9520, L500.4100, L500.4050, L503.0105, L506.0400, L501.5200, L100.0100 ####[facility] [address] [place], [address] Lymphocytes/100 WBC (Bld) 20.4 % Normal 19-[address] [facility] Comment on above: Performed By: #### L 501.21883, L501.9910, L501.9985, L501.9520, L500.4100, L500.4050, L503.0105, L506.0400, L501.5200, L100.0100 ####[facility] [address] [place], [address] MCH (RBC) [Entitic mass] 24.3 pg Low 27.0-32.[address] [facility] Comment on above: Performed By: #### L 501.91854, L501.9910, L501.9985, L501.9520, L500.4100, L500.4050, L503.0105, L506.0400, L501.5200, L100.0100 ####[facility] [address] [place], [address] MCHC (RBC) [Mass/Vol] 30.7 g/dL Low 32-36 [facility] Comment on above: Performed By: #### L 501.40409, L501.9910, L501.9985, L501.9520, L500.4100, L500.4050, L503.0105, L506.0400, L501.5200, L100.0100 ####[facility] [address] [place], [address] MCV (RBC) [Entitic vol] 79.1 fL Low 80-94 [facility] Comment on above: Performed By: #### L 501.34501, L501.9910, L501.9985, L501.9520, L500.4100, L500.4050, L503.0105, L506.0400, L501.5200, L100.0100 ####[facility] [address] [place], [address] Monocytes/100 WBC (Bld) 11.5 % High 0-10 [facility] Comment on above: Performed By: #### L 501.83253, L501.9910, L501.9985, L501.9520, L500.4100, L500.4050, L503.0105, L506.0400, L501.5200, L100.0100 ####[facility] [address] [place], [address] Neutrophils/100 WBC (Bld) 57.5 % Normal 47-[address] [facility] Comment on above: Performed By: #### L 501.62556, L501.9910, L501.9985, L501.9520, L500.4100, L500.4050, L503.0105, L506.0400, L501.5200, L100.0100 ####[facility] [address] [place], [address] Nucleated RBC (Bld) [#/Vol] 0 10*3/uL Normal 0-[address] [facility] Comment on above: Performed By: #### L 501.40863, L501.9910, L501.9985, L501.9520, L500.4100, L500.4050, L503.0105, L506.0400, L501.5200, L100.0100 ####[facility] [address] [place], [address] Platelet mean volume (Bld) [Entitic vol] 8.9 fL Normal 6.2-12.[address] [facility] Comment on above: Performed By: #### L 501.68715, L501.9910, L501.9985, L501.9520, L500.4100, L500.4050, L503.0105, L506.0400, L501.5200, L100.0100 ####[facility] [address] [place], [address](894) Platelets (Bld) [#/Vol] 281 10*3/uL Normal 150-[address] [facility] Comment on above: Performed By: #### L 501.49985, L501.9910, L501.9985, L501.9520, L500.4100, L500.4050, L503.0105, L506.0400, L501.5200, L100.0100 ####[facility] [address] [place], [address] RBC (Bld) [#/Vol] 4.07 10*6/uL Low 4.6-6.2 [facility] Comment on above: Performed By: #### L 501.90706, L501.9910, L501.9985, L501.9520, L500.4100, L500.4050, L503.0105, L506.0400, L501.5200, L100.0100 ####[facility] [address] [place], [address] RDW SD 54.7 fl High 35.1-43.[address] [facility] Comment on above: Performed By: #### L 501.94920, L501.9910, L501.9985, L501.9520, L500.4100, L500.4050, L503.0105, L506.0400, L501.5200, L100.0100 ####[facility] [address] [place], [place], [phone] WBC (Bld) [#/Vol] 6.4 10*3/uL Normal 4.4-11.0 [facility] Comment on above: Performed By: #### L 501.86087, L501.9910, L501.9985, L501.9520, L500.4100, L500.4050, L503.0105, L506.0400, L501.5200, L100.0100 ####[facility] [address] [place], [place], [phone] Comprehensive Metabolic [facility] 05-09-2024 Albumin [Mass/Vol] 3.8 g/dL Normal 3.2-5.0 [facility] Comment on above: Performed By: #### L 501.00426, L501.9910, L501.9985, L501.9520, L500.4100, L500.4050, L503.0105, L506.0400, L501.5200, L100.0100 ####[facility] [address] [place], [place], [phone] Albumin/Globulin [Mass ratio] 1.2 {ratio} Normal 0.9-2.[address] [facility] Comment on above: Performed By: #### L 501.64839, L501.9910, L501.9985, L501.9520, L500.4100, L500.4050, L503.0105, L506.0400, L501.5200, L100.0100 ####[facility] [address] [place], [place], [phone] ALK P 46 U/L Normal 45-[address] [facility] Comment on above: Performed By: #### L 501.50008, L501.9910, L501.9985, L501.9520, L500.4100, L500.4050, L503.0105, L506.0400, L501.5200, L100.0100 ####[facility] [address] [place], [place], [phone] ALT [Catalytic activity/Vol] 10 U/L Low 16-[address] [facility] Comment on above: Performed By: #### L 501.25634, L501.9910, L501.9985, L501.9520, L500.4100, L500.4050, L503.0105, L506.0400, L501.5200, L100.0100 ####[facility] [address] [place], [address] AST [Catalytic activity/Vol] 6 U/L Low 15-[address] [facility] Comment on above: Performed By: #### L 501.01921, L501.9910, L501.9985, L501.9520, L500.4100, L500.4050, L503.0105, L506.0400, L501.5200, L100.0100 ####[facility] [address] [place], [place], [phone] Bilirubin [Mass/Vol] 0.70 mg/dL Normal 0.20-1.00 [facility] Comment on above: Result Comment: For patients on eltrombopag therapy, use of Dimension [place] TBIL is not recommended. Performed By: #### L 501.70825, L501.9910, L501.9985, L501.9520, L500.4100, L500.4050, L503.0105, L506.0400, L501.5200, L100.0100 ####[facility] [address] [place], [address] BUN/CRE 11.9 RATIO Normal 10-[address] [facility] Comment on above: Performed By: #### L 501.85843, L501.9910, L501.9985, L501.9520, L500.4100, L500.4050, L503.0105, L506.0400, L501.5200, L100.0100 ####[facility] [address] [place], [place], [phone]) CA,Total 9.7 mg/dL Normal 8.5-10.[address] [facility] Comment on above: Performed By: #### L 501.63846, L501.9910, L501.9985, L501.9520, L500.4100, L500.4050, L503.0105, L506.0400, L501.5200, L100.0100 ####[facility] [address] [place], [place], [phone] Chloride [Moles/Vol] 105 mmol/L Normal 98-107 [facility] Comment on above: Performed By: #### L 501.57251, L501.9910, L501.9985, L501.9520, L500.4100, L500.4050, L503.0105, L506.0400, L501.5200, L100.0100 ####[facility] [address] [place], [place], [phone](575) CO2 [Moles/Vol] 25.0 mmol/L Normal 21.0-32.[address] [facility] Comment on above: Performed By: #### L 501.97181, L501.9910, L501.9985, L501.9520, L500.4100, L500.4050, L503.0105, L506.0400, L501.5200, L100.0100 ####[facility] [address] [place], [place], [phone](774) Creatinine [Mass/Vol] 1.68 mg/dL High 0.70-1.30 [facility] Comment on above: Result Comment: The validity of the calculated GFR GFRAA in patients over70 years has not been determined. Clinical correlation isessential. Performed By: #### L 501.74753, L501.9910, L501.9985, L501.9520, L500.4100, L500.4050, L503.0105, L506.0400, L501.5200, L100.0100 ####[facility] [address] [place], [place], [phone] EST GFR - AA 50 mL/min Low >[address] [facility] Comment on above: Result Comment: Afri can Burmese GFR Calc Performed By: #### L 501.03627, L501.9910, L501.9985, L501.9520, L500.4100, L500.4050, L503.0105, L506.0400, L501.5200, L100.0100 ####[facility] [address] [place], [place], [phone] GAP 11 Normal 5-[address] [facility] Comment on above: Performed By: #### L 501.42181, L501.9910, L501.9985, L501.9520, L500.4100, L500.4050, L503.0105, L506.0400, L501.5200, L100.0100 ####[facility] [address] [place], [place], [phone] GFR/1.73 sq M.predicted among non-blacks MDRD (S/P/Bld) [Vol rate/Area] 41 mL/min/{1.73_m2} Low >[address] [facility] Comment on above: Result Comment: Non- GFR Calc Performed By: #### L 501.23966, L501.9910, L501.9985, L501.9520, L500.4100, L500.4050, L503.0105, L506.0400, L501.5200, L100.0100 ####[facility] [address] [place], [place], [phone] Globulin (S) [Mass/Vol] 3.2 g/dL Normal 2.2-4.2 [facility] Comment on above: Performed By: #### L 501.61219, L501.9910, L501.9985, L501.9520, L500.4100, L500.4050, L503.0105, L506.0400, L501.5200, L100.0100 ####[facility] [address] [place], [place], [phone] Glucose [Mass/Vol] 94 mg/dL Normal 74-106 [facility] Comment on above: Performed By: #### L 501.20375, L501.9910, L501.9985, L501.9520, L500.4100, L500.4050, L503.0105, L506.0400, L501.5200, L100.0100 ####[facility] [address] [place], [place], [phone] Potassium [Moles/Vol] 3.4 mmol/L Low 3.5-5.1 [facility] Comment on above: Performed By: #### L 501.34377, L501.9910, L501.9985, L501.9520, L500.4100, L500.4050, L503.0105, L506.0400, L501.5200, L100.0100 ####[facility] [address] [place], [place], [phone] Sodium [Moles/Vol] 141 mmol/L Normal 136-145 [facility] Comment on above: Performed By: #### L 501.80039, L501.9910, L501.9985, L501.9520, L500.4100, L500.4050, L503.0105, L506.0400, L501.5200, L100.0100 ####[facility] [address] [place], [place], [phone] T PROT 7.0 g/dL Normal 6.4-8.[address] [facility] Comment on above: Performed By: #### L 501.02146, L501.9910, L501.9985, L501.9520, L500.4100, L500.4050, L503.0105, L506.0400, L501.5200, L100.0100 ####[facility] [address] [place], [place], [phone] Urea nitrogen [Mass/Vol] 20 mg/dL High 01-[address] [facility] Comment on above: Performed By: #### L 501.20583, L501.9910, L501.9985, L501.9520, L500.4100, L500.4050, L503.0105, L506.0400, L501.5200, L100.0100 ####[facility] [address] [place], [place], [phone] Free T3on 05-09-2024 Free T3 [Mass/Vol] 2.5 pg/mL Normal 2.18-3.98 [facility] Comment on above: Performed By: #### L 501.22017, L501.9910, L501.9985, L501.9520, L500.4100, L500.4050, L503.0105, L506.0400, L501.5200, L100.0100 ####[facility] [address] [place], [place], [phone] Hemoglobin A1con 05-09-2024 HbA1c (Bld) [Mass fraction] 6.6 % High 3.8-5.[address] [facility] Comment on above: Result Comment: Norm al < 5.7 % Prediabetic 5.7 - 6.4 % Diabetic >or= 6.5 % Please note range changes. Performed By: #### L 501.33879, L501.9910, L501.9985, L501.9520, L500.4100, L500.4050, L503.0105, L506.0400, L501.5200, L100.0100 ####[facility] [address] [place], [address] Iron+Iron Binding Capacityon 05-09-2024 Iron [Mass/Vol] 28 ug/dL Low 65-[address] [facility] Comment on above: Performed By: #### L 503.6030 ####[facility] [address] [place], [address] IRON SATURATION 6.2 Low 15.0-55.[address] [facility] Comment on above: Performed By: #### L 503.6030 ####[facility] [address] [place], [address] TIBC 454 ug/dL High 250-[address] [facility] Comment on above: Performed By: #### L 503.6030 ####[facility] [address] [place], [address] Lipid Profileon 05-09-2024 Cholesterol [Mass/Vol] 143 mg/dL Normal 200 [facility] Comment on above: Result Comment: <200 mg/dL Desirable 200-240 mg/dL Borderline >240 mg/dL High Risk Performed By: #### L 501.78432, L501.9910, L501.9985, L501.9520, L500.4100, L500.4050, L503.0105, L506.0400, L501.5200, L100.0100 ####[facility] [id number] [place], [address] Cholesterol in HDL [Mass/Vol] 46 mg/dL Normal [facility] Comment on above: Result Comment: The drugs N-Acetylcysteine and Metamizole may falselydepress this assay. Reference Range HDL <40 mg/dL Low HDL Cholesterol HDL >or= 60 mg/dL High HDL Cholesterol Performed By: #### L 501.11703, L501.9910, L501.9985, L501.9520, L500.4100, L500.4050, L503.0105, L506.0400, L501.5200, L100.0100 ####[facility] [id number] [place], [place], [id number]) Cholesterol in LDL [Mass/Vol] 68 mg/dL Normal 0-[address] [facility] Comment on above: Performed By: #### L 501.37487, L501.9910, L501.9985, L501.9520, L500.4100, L500.4050, L503.0105, L506.0400, L501.5200, L100.0100 ####[facility] [id number] [facility]. [place], [place], [id number]) Cholesterol in VLDL [Mass/Vol] 29 mg/dL Normal 5-[address] [facility] Comment on above: Performed By: #### L 501.73957, L501.9910, L501.9985, L501.9520, L500.4100, L500.4050, L503.0105, L506.0400, L501.5200, L100.0100 ####[facility] [id number] [facility]. [place], [place], [phone]) Triglyceride [Mass/Vol] 144 mg/dL Normal [facility] Comment on above: Result Comment: The drugs N-Acetylcysteine and Metamizole may falselydepress this assay.Serum Triglycerides Reference Interval Normal <150 mg/dL Borderline high 150 - 199 mg/dL High 200 - 499 mg/dL Very High > or = 500 mg/dL Performed By: #### L 501.30726, L501.9910, L501.9985, L501.9520, L500.4100, L500.4050, L503.0105, L506.0400, L501.5200, L100.0100 ####[facility] [address] [place], [place], [id number] Magnesiumon 05-09-2024 Magnesium [Mass/Vol] 1.8 mg/dL Normal 1.6-2.6 [facility] Comment on above: Performed By: #### L 501.22407, L501.9910, L501.9985, L501.9520, L500.4100, L500.4050, L503.0105, L506.0400, L501.5200, L100.0100 ####[facility] [address] [place], [address] PSA,Total - Annual Screenon 05-09-2024 PSA,TOT SCREEN 1.04 ng/mL Normal 0.00-4.[address] [facility] Comment on above: Result Comment: This test was performed using the TPSA assay method for the800APP chemistry system. Values obtained with differentassay methods cannot be used interchangably.When changing PSA assays in the course of monitoring apatient, additional sequential testing should be carriedout to confirm baseline values. Performed By: #### L 501.99529, L501.9910, L501.9985, L501.9520, L500.4100, L500.4050, L503.0105, L506.0400, L501.5200, L100.0100 ####[facility] [address] [place], [place], [id number] T4 Free Directon 05-09-2024 T4 FREE DIRECT 0.91 ng/dL Normal 0.76-1.[address] [facility] Comment on above: Performed By: #### L 501.03661, L501.9910, L501.9985, L501.9520, L500.4100, L500.4050, L503.0105, L506.0400, L501.5200, L100.0100 ####[facility] [address] [place], [address] Thyroid Stim Hormone (TSH)on 05-09-2024 TSH 2.880 uIU/mL Normal 0.358-3.[address] [facility] Comment on above: Performed By: #### L 501.71960, L501.9910, L501.9985, L501.9520, L500.4100, L500.4050, L503.0105, L506.0400, L501.5200, L100.0100 ####[facility] [address] [place], [place], [address] Vitamin B12on 05-09-2024 Cobalamin (Vitamin B12) [Mass/Vol] pg/mL High 211-[address] [facility] Comment on above: Performed By: #### L 501.74604, L501.9910, L501.9985, L501.9520, L500.4100, L500.4050, L503.0105, L506.0400, L501.5200, L100.0100 ####[facility] [address] [place], [place], [phone] Office Visit Reporton 2023 Office Visit Report Normal [facility] Neurology Visit Reporton Neurology Visit Report Normal [facility] Pulmonary Visit Reporton Pulmonary Visit Report Normal [facility] Cardiology Visit Reporton Cardiology Visit Report Normal [facility] MR/BMS.IMBon 03-07-2024 MR/BMS.IMB Normal [facility] CNOVon 02-29-2024 CNOV Office Visit (PODIWS ) OLMAN SYED ([id number]) 1935 M Date Time Provider Department 02/29/24 1:30 PM BARBIE NOVA During your visit today, we recorded the following information about you: Rosita Garner RN 02/29/2024 2:01 PM Signed Patient presents with: [...] Objective: Patient presents to clinic ambulating [facility] Vasc: DP and PT pulses are [...] Barbie Nova DPM Referring Provider: BARBIE NOVA [[id number]] Allergies As of Date: 02/29/2024 Noted Allergy Reaction ACTOS (PIOGLITAZONE HCL) 2006 Comments: abdomenal pain Date Reviewed: 02/29/2024 Reviewed by: Rosita Garner, RN - Fully Assessed Reason for Visit: [...] Inhale 2 (more content not included)... Normal [facility] Re-Evaluation - PT (1)on Re-Evaluation - PT (1) Normal [facility] Inital Evaluation (1) - PTon 01-19-2024 Inital Evaluation (1) - PT Normal [facility] Office Visit Reporton 2023 Office Visit Report Normal [facility] L/S Spine Comp/w Bending Vie wson 01-10-2024 L/S Spine Comp/w Bending Views Normal [facility] Absolute lymphocyte countOrd ered By: Keron Maciel on 09-22-2023 Lymphocytes Auto (Unsp spec) [#/Vol] 1.66 10*3/uL 0.83-4.[address] [facility] Automated lymphocyte count a s percentage of total leukocytesOrdered By: Keron Maciel on 09-22-2023 Lymphocytes/100 WBC Auto (Unsp spec) 20.4 % 19-[address] [facility] Basophil percentageOrdered B y: Keron Maciel on 09-22-2023 Basophils/100 WBC (Bld) 0.4 % 0-1 [facility] Bilirubin [Mass/Vol] 0.70 mg/dL 0.20-1.00 [facility] Comment on above: For patients on eltr ombopag therapy, use of Dimension [place] TBIL is not recommended. Chloride [Moles/Vol] 100 mmol/L 98-107 [facility] Cholesterol [Mass/Vol] 154 mg/dL <200 [facility] Comment on above: <200 mg/dL Desirable 200-240 mg/dL Borderline >240 mg/dL High Risk Eosinophils/100 WBC (Bld) 1.0 % 0-[address] [facility] Glucose [Mass/Vol] 126 mg/dL 74-106 [facility] Comment on above: Fasting Glucose resu lt greater than or equal to 126 mg/dL suggests DIABETES MELLITUS per A.D.A. criteria. Hemoglobin (Bld) [Mass/Vol] 13.3 g/dL 13.0-16.[address] [facility] Monocytes/100 WBC (Bld) 8.7 % 0-10 [facility] Neutrophils (Bld) [#/Vol] 5.5 10*3/uL 2.0-7.[address] [facility] Neutrophils/100 WBC (Bld) 67.8 % 47-[address] [facility] Potassium [Moles/Vol] 4.5 mmol/L 3.5-5.1 [facility] Protein [Mass/Vol] 7.2 g/dL 6.4-8.2 [facility] Sodium [Moles/Vol] 136 mmol/L 136-145 [facility] Triglyceride [Mass/Vol] 145 mg/dL <199 [facility] Comment on above: The drugs N-Acetylcy steine and Metamizole may falsely depress this assay.Serum Triglycerides Reference Interval Normal <150 mg/dL Borderline high 150 - 199 mg/dL High 200 - 499 mg/dL Very High > or = 500 mg/dL WBC (Bld) [#/Vol] 8.1 10*3/uL 4.4-11.0 [facility] Determination of erythrocyte mean corpuscular volume (MCV)Ordered By: Keron Maciel on 09-22-2023 MCV (RBC) [Entitic vol] 89.0 fL 80-94 [facility] Erythrocyte distribution wid th ratioOrdered By: Keron Maciel on 09-22-2023 Erythrocyte distribution width (RBC) [Ratio] 16.9 % 11.6-14.[address] [facility] Erythrocyte distribution wid th standard deviationOrdered By: Keron Maciel on 09-22-2023 Erythrocyte distribution width (RBC) [Entitic vol] 54.4 fL 35.1-43.[address] [facility] Hematocrit Auto (Bld) [Volum e fraction]Ordered By: Keron Maciel on 09-22-2023 Hematocrit (Bld) [Volume fraction] 41.1 % 40-[address] [facility] Immature granulocytes/100 WB C Auto (Bld)Ordered By: Keron Maciel on 09-22-2023 Immature granulocytes/100 WBC (Bld) 1.700 % 0.0-0.[address] [facility] Comment on above: IG% - Immature Granu locytes (promyelocytes, myelocytes and metamyelocytes) > 1% indicates that a LEFT SHIFT is Present. Laboratory - Chemistry and C hemistry - challengeOrdered By: Keron Maciel on 09-22-2023 Albumin/Globulin [Mass ratio] 1.1 {ratio} 0.9-2.[address] [facility] ALP [Catalytic activity/Vol] 32 U/L 45-[address] [facility] ALT [Catalytic activity/Vol] 8 U/L 16-[address] [facility] Cholesterol in HDL [Mass/Vol] 50 mg/dL >[address] [facility] Comment on above: The drugs N-Acetylcy steine and Metamizole may falsely depress this assay. Reference Range HDL <40 mg/dL Low HDL Cholesterol HDL >or= 60 mg/dL High HDL Cholesterol Cholesterol in LDL [Mass/Vol] 75 mg/dL 0-[address] [facility] CO2 [Moles/Vol] 29.0 mmol/L 21.0-32.[address] [facility] Globulin (S) [Mass/Vol] 3.5 g/dL 2.2-4.2 [facility] Urea nitrogen/Creatinine [Mass ratio] 15.0 mg/mg 10-[address] [facility] Laboratory - Hematology and Cell countsOrdered By: Keron Maciel on 09-22-2023 MCH (RBC) [Entitic mass] 28.8 pg 27.0-32.[address] [facility] MCHC (RBC) [Mass/Vol] 32.4 g/dL 32-36 [facility] Nucleated RBC/100 WBC (Bld) [Ratio] 0 % 0-[address] [facility] Platelet mean volume (Bld) [Entitic vol] 9.0 fL 6.2-12.[address] [facility] Platelets (Bld) [#/Vol] 255 10*3/uL 150-[address] [facility] No Panel InformationOrdered By: Keron Maciel on 09-22-2023 Estimated GFR (MDRD) Amer 44 mL/min >[address] [facility] Comment on above: GFR Calc Estimated GFR (MDRD) Non-Af Amer 37 mL/min >[address] [facility] Comment on above: Non- GFR Calc Vitamin D 25-Hydroxy 81.7 ng/mL [facility] Comment on above: Vitamin D 25(OH) Sta tus Range Deficiency <20 ng/mL (50nmol/L) Insufficiency 20 - 30 ng/mL (50 - 75 nmol/L) Sufficiency 30 - 100 ng/mL (75 - 250 nmol/L) Toxicity >100 ng/mL (>250 nmol/L) VLDL Cholesterol 29 mg/dL 5-[address] [facility] RBC Auto (Bld) [#/Vol]Ordere d By: Keron Maciel on 09-22-2023 RBC (Bld) [#/Vol] 4.62 10*6/uL 4.6-6.2 [facility] Serum or plasma calcium odilon urement (mass/volume)Ordered By: Keron Maciel on 09-22-2023 Calcium [Mass/Vol] 10.0 mg/dL 8.5-10.1 [facility] Serum or plasma creatinine m easurement (mass/volume)Ordered By: Keron Maciel on 09-22-2023 Creatinine [Mass/Vol] 1.87 mg/dL 0.70-1.30 [facility] Comment on above: The validity of the calculated GFR & GFRAA in patients over 70 years has not been determined. Clinical correlation is essential. Serum or plasma thyroid stim ulating hormone (TSH) measurement (units/volume)Ordered By: Keron Maciel on 09-22-2023 TSH Qn 2.98 uIU/mL 0.358-3.[address] [facility] Serum or plasma urea nitroge n measurement (mass/volume)Ordered By: Keron Maciel on 09-22-2023 Urea nitrogen [Mass/Vol] 28 mg/dL 7-[address] [facility] Thin prep Papanicolaou smear with manual screeningOrdered By: Keron Maciel on 09-22-2023 Thin prep Papanicolaou smear with manual screening 3.7 g/dL 3.2-5.[address] [facility] Thin prep Papanicolaou smear with manual screening 10 U/L 15-[address] [facility] Thin prep Papanicolaou smear with manual screening 7 5-[address] [facility] Whole blood hemoglobin A1c/t otal hemoglobin ratio (mass fraction)Ordered By: Keronrichard Maciel on 09-22-2023 HbA1c (Bld) [Mass fraction] 6.4 % 3.8-5.[address] [facility] Comment on above: Normal < 5.7 % Predi abetic 5.7 - 6.4 % Diabetic >or= 6.5 % Please note range changes. No Panel Informationon 08-10 Influenza Types A,B Rapid (Clinic) Negative [facility] POC SARS CoV-2 Antigen Negative [facility] Absolute lymphocyte countOrd ered By: Junior Duenas on 07-16-2023 Lymphocytes Auto (Unsp spec) [#/Vol] 1.30 10*3/uL 0.83-4.[address] [facility] Automated lymphocyte count a s percentage of total leukocytesOrdered By: Junior Duenas on 07-16-2023 Lymphocytes/100 WBC Auto (Unsp spec) 18.3 % 19-[address] [facility] Basophil percentageOrdered B y: Junior Duenas on 07-16-2023 Basophils/100 WBC (Bld) 0.8 % 0-1 [facility] Chloride [Moles/Vol] 105 mmol/L 98-107 [facility] Eosinophils/100 WBC (Bld) 3.2 % 0-[address] [facility] Glucose [Mass/Vol] 107 mg/dL 74-106 [facility] Comment on above: Fasting Glucose resu lt from 100 to 125 mg/dL suggests IMPAIRED HOMEOSTASIS per A.D.A. criteria. Hemoglobin (Bld) [Mass/Vol] 12.4 g/dL 13.0-16.[address] [facility] Monocytes/100 WBC (Bld) 9.9 % 0-10 [facility] Neutrophils (Bld) [#/Vol] 4.8 10*3/uL 2.0-7.[address] [facility] Neutrophils/100 WBC (Bld) 67.2 % 47-[address] [facility] Potassium [Moles/Vol] 4.6 mmol/L 3.5-5.1 [facility] Sodium [Moles/Vol] 138 mmol/L 136-145 [facility] WBC (Bld) [#/Vol] 7.1 10*3/uL 4.4-11.0 [facility] Determination of erythrocyte mean corpuscular volume (MCV)Ordered By: Junior Duenas on 07-16-2023 MCV (RBC) [Entitic vol] 90.0 fL 80-94 [facility] Erythrocyte distribution wid th ratioOrdered By: Junior Duenas on 07-16-2023 Erythrocyte distribution width (RBC) [Ratio] 15.5 % 11.6-14.[address] [facility] Erythrocyte distribution wid th standard deviationOrdered By: Junior Duenas on 07-16-2023 Erythrocyte distribution width (RBC) [Entitic vol] 51.0 fL 35.1-43.[address] [facility] Hematocrit Auto (Bld) [Volum e fraction]Ordered By: Junior Duenas on 07-16-2023 Hematocrit (Bld) [Volume fraction] 38.9 % 40-[address] [facility] Immature granulocytes/100 WB C Auto (Bld)Ordered By: Junior Duenas on 07-16-2023 Immature granulocytes/100 WBC (Bld) 0.600 % 0.0-0.[address] [facility] Comment on above: IG% - Immature Granu locytes (promyelocytes, myelocytes and metamyelocytes) > 1% indicates that a LEFT SHIFT is Present. Laboratory - Chemistry and C hemistry - challengeOrdered By: Junior Duenas on 07-16-2023 CO2 [Moles/Vol] 23.0 mmol/L 21.0-32.[address] [facility] Natriuretic peptide B (Bld) [Mass/Vol] 76.2 pg/mL 0-[address] [facility] Urea nitrogen/Creatinine [Mass ratio] 15.5 mg/mg 10-[address] [facility] Laboratory - Hematology and Cell countsOrdered By: Junior Duenas on 07-16-2023 MCH (RBC) [Entitic mass] 28.7 pg 27.0-32.[address] [facility] MCHC (RBC) [Mass/Vol] 31.9 g/dL 32-36 [facility] Nucleated RBC/100 WBC (Bld) [Ratio] 0 % 0-[address] [facility] Platelets (Bld) [#/Vol] 269 10*3/uL 150-[address] [facility] Laboratory - Microbiology an d Antimicrobial susceptibilityOrdered By: Junior Duenas on 07-16-2023 SARS-CoV-2 (COVID-19) RNA VÍCTOR+probe Ql (Unsp spec) [facility] No Panel InformationOrdered By: Junior Duenas on 07-16-2023 Troponin I High Sensitivity 18 pg/mL 3.0-78.[address] [facility] Comment on above: Please Note: New [place] t Units and Gender Specific Reference Ranges. For more information see Policy Stat Procedure [place] High Sensitivity Troponin (TNIH) and attachments. D-Dimer Quantitative (PE/DVT) 0.61 FEU/ug/m 0.27-0.[address] [facility] Comment on above: D-Dimer ELEVATED (>0 .49): Additional studies and clinicalassessments are indicated to conclude diagnosis of:Deep Vein Thrombosis (DVT) or Pulmonary Embolism (PE)CRITICAL VALUE VERIFIED. CALLED TO JUNIOR DUENAS NP07/16/23 [id number] Eliezer Moncada.RESULTS READ BACK BY SAME . Estimated Creatinine Clearance Calc 29.81 ml/min [facility] Estimated GFR (MDRD) Amer 41 mL/min >[address] [facility] Comment on above: GFR Calc Estimated GFR (MDRD) Non-Af Amer 34 mL/min >[address] [facility] Comment on above: Non- GFR Calc Platelet mean volume Torey-Ec ker (Bld) [Entitic vol]Ordered By: Junior Duenas on 07-16-2023 Platelet mean volume (Bld) [Entitic vol] 9.1 fL 6.2-12.[address] [facility] RBC Auto (Bld) [#/Vol]Ordere d By: Junior Duenas on 07-16-2023 RBC (Bld) [#/Vol] 4.32 10*6/uL 4.6-6.2 [facility] Serum or plasma calcium odilon urement (mass/volume)Ordered By: Junior Duenas on 07-16-2023 Calcium [Mass/Vol] 10.0 mg/dL 8.5-10.1 [facility] Serum or plasma creatinine m easurement (mass/volume)Ordered By: Junior Duenas on 07-16-2023 Creatinine [Mass/Vol] 2.00 mg/dL 0.70-1.30 [facility] Comment on above: The validity of the calculated GFR & GFRAA in patients over 70 years has not been determined. Clinical correlation is essential. Serum or plasma urea nitroge n measurement (mass/volume)Ordered By: Junior Duenas on 07-16-2023 Urea nitrogen [Mass/Vol] 31 mg/dL 7-[address] [facility] Thin prep Papanicolaou smear with manual screeningOrdered By: Junior Duenas on 07-16-2023 Thin prep Papanicolaou smear with manual screening 10 5-[address] [facility] Absolute lymphocyte countOrd ered By: Dr. Maciel on 09-28-2022 Lymphocytes Auto (Unsp spec) [#/Vol] 1.75 10*3/uL 0.83-4.[address] [facility] Basophil percentageOrdered B y: Dr. Maciel on 09-28-2022 Basophils/100 WBC (Bld) 0.7 % 0-1 [facility] Bilirubin [Mass/Vol] 0.60 mg/dL 0.20-1.00 [facility] Comment on above: For patients on eltr ombopag therapy, use of Dimension [place] TBIL is not recommended. Chloride [Moles/Vol] 103 mmol/L 98-107 [facility] Cholesterol [Mass/Vol] 152 mg/dL <200 [facility] Comment on above: <200 mg/dL Desirable 200-240 mg/dL Borderline >240 mg/dL High Risk Eosinophils/100 WBC (Bld) 3.8 % 0-[address] [facility] Glucose [Mass/Vol] 61 mg/dL 74-106 [facility] Neutrophils (Bld) [#/Vol] 4.0 10*3/uL 2.0-7.[address] [facility] Neutrophils/100 WBC (Bld) 58.5 % 47-[address] [facility] Potassium [Moles/Vol] 4.2 mmol/L 3.5-5.1 [facility] Protein [Mass/Vol] 6.9 g/dL 6.4-8.2 [facility] Sodium [Moles/Vol] 137 mmol/L 136-145 [facility] Triglyceride [Mass/Vol] 150 mg/dL <199 [facility] Comment on above: The drugs N-Acetylcy steine and Metamizole may falsely depress this assay.Serum Triglycerides Reference Interval Normal <150 mg/dL Borderline high 150 - 199 mg/dL High 200 - 499 mg/dL Very High > or = 500 mg/dL WBC (Bld) [#/Vol] 6.8 10*3/uL 4.4-11.0 [facility] Blood erythrocytes count (nu mber/volume)Ordered By: Dr. Maciel on 09-28-2022 RBC (Bld) [#/Vol] 4.33 10*6/uL 4.6-6.2 [facility] Blood hemoglobin measurement (mass/volume)Ordered By: Dr. Maciel on 09-28-2022 Hemoglobin (Bld) [Mass/Vol] 12.9 g/dL 13.0-16.[address] [facility] Blood lymphocytes/100 leukoc ytesOrdered By: Dr. Maciel on 09-28-2022 Lymphocytes/100 WBC (Bld) 25.8 % 19-[address] [facility] Blood monocytes/100 leukocyt esOrdered By: Dr. Maciel on 09-28-2022 Monocytes/100 WBC (Bld) 10.6 % 0-10 [facility] Blood platelet mean volumeOr dered By: Dr. Maciel on 09-28-2022 Platelet mean volume (Bld) [Entitic vol] 9.2 fL 6.2-12.[address] [facility] Determination of erythrocyte mean corpuscular volume (MCV)Ordered By: Dr. Maciel on 09-28-2022 MCV (RBC) [Entitic vol] 94.7 fL 80-94 [facility] Hematocrit Auto (Bld) [Volum e fraction]Ordered By: Dr. Maciel on 09-28-2022 Hematocrit (Bld) [Volume fraction] 41.0 % 40-[address] [facility] Laboratory - Chemistry and C hemistry - challengeOrdered By: Dr. Maciel on 09-28-2022 ALP [Catalytic activity/Vol] 28 U/L 45-[address] [facility] ALT [Catalytic activity/Vol] 10 U/L 16-[address] [facility] CO2 [Moles/Vol] 29.0 mmol/L 21.0-32.[address] [facility] Free T4 [Mass/Vol] 0.94 ng/dL 0.76-1.46 [facility] Globulin (S) [Mass/Vol] 3.2 g/dL 2.2-4.2 [facility] Magnesium [Mass/Vol] 2.0 mg/dL 1.6-2.6 [facility] Urea nitrogen/Creatinine [Mass ratio] 14.7 mg/mg 10-[address] [facility] Laboratory - Hematology and Cell countsOrdered By: Dr. Maciel on 09-28-2022 Erythrocyte distribution width (RBC) [Entitic vol] 55.9 fL 35.1-43.[address] [facility] Erythrocyte distribution width (RBC) [Ratio] 15.9 % 11.6-14.[address] [facility] Immature granulocytes/100 WBC (Bld) 0.600 % 0.0-0.[address] [facility] Comment on above: IG% - Immature Granu locytes (promyelocytes, myelocytes and metamyelocytes) > 1% indicates that a LEFT SHIFT is Present. MCH (RBC) [Entitic mass] 29.8 pg 27.0-32.[address] [facility] Nucleated RBC/100 WBC (Bld) [Ratio] 0 % 0-[address] [facility] MCHC Auto (RBC) [Mass/Vol]Or dered By: Dr. Maciel on 09-28-2022 MCHC (RBC) [Mass/Vol] 31.5 g/dL 32-36 [facility] No Panel InformationOrdered By: Dr. Maciel on 09-28-2022 D-Dimer Quantitative (PE/DVT) 0.33 FEU/ug/m 0.27-0.[address] [facility] Comment on above: NORMAL D-Dimer level (<0.50) indicates no DVT or PE. Estimated GFR (MDRD) Amer 55 mL/min >[address] [facility] Comment on above: GFR Calc Estimated GFR (MDRD) Non-Af Amer 45 mL/min >[address] [facility] Comment on above: Non- GFR Calc Free Triiodothyronine (T3) pg/dL 2.1 pg/mL 2.18-3.[address] [facility] Thyroid Stimulating Hormone (TSH) 2.34 uIU/mL 0.358-3.[address] [facility] Platelets bldOrdered By: Dr. Maciel on 09-28-2022 Platelets (Bld) [#/Vol] 276 10*3/uL 150-[address] [facility] Serum or plasma albumin odilon urement (mass/volume)Ordered By: Dr. Maciel on 09-28-2022 Albumin [Mass/Vol] 3.7 g/dL 3.2-5.0 [facility] Serum or plasma albumin/glob ulin mass ratioOrdered By: Dr. Maciel on 09-28-2022 Albumin/Globulin [Mass ratio] 1.2 {ratio} 0.9-2.[address] [facility] Serum or plasma calcium odilon urement (mass/volume)Ordered By: Dr. Maciel on 09-28-2022 Calcium [Mass/Vol] 9.3 mg/dL 8.5-10.1 [facility] Serum or plasma cholesterol in HDL measurement (mass/volume)Ordered By: Dr. Maciel on 09-28-2022 Cholesterol in HDL [Mass/Vol] 57 mg/dL >[address] [facility] Comment on above: The drugs N-Acetylcy steine and Metamizole may falsely depress this assay. Reference Range HDL <40 mg/dL Low HDL Cholesterol HDL >or= 60 mg/dL High HDL Cholesterol Serum or plasma cholesterol in VLDL measurement (mass/volume)Ordered By: Dr. Maciel on 09-28-2022 Cholesterol in VLDL [Mass/Vol] 30 mg/dL 5-[address] [facility] Serum or plasma creatinine m easurement (mass/volume)Ordered By: Dr. Maciel on 09-28-2022 Creatinine [Mass/Vol] 1.56 mg/dL 0.70-1.30 [facility] Comment on above: The validity of the calculated GFR & GFRAA in patients over 70 years has not been determined. Clinical correlation is essential. Serum or plasma low density lipoprotein (LDL) cholesterol measurement (mass/volume)Ordered By: Dr. Maciel on 09-28-2022 Cholesterol in LDL [Mass/Vol] 65 mg/dL 0-[address] [facility] Serum or plasma urea nitroge n measurement (mass/volume)Ordered By: Dr. Maciel on 09-28-2022 Urea nitrogen [Mass/Vol] 23 mg/dL 7-[address] [facility] Thin prep Papanicolaou smear with manual screeningOrdered By: Dr. Maciel on 09-28-2022 Thin prep Papanicolaou smear with manual screening 20 U/L 15-[address] [facility] Thin prep Papanicolaou smear with manual screening 5 5-[address] [facility] Whole blood hemoglobin A1c/t otal hemoglobin ratio (mass fraction)Ordered By: Dr. Maciel on 09-28-2022 HbA1c (Bld) [Mass fraction] 6.3 % 3.8-5.[address] [facility] Comment on above: Normal < 5.7 % Predi abetic 5.7 - 6.4 % Diabetic >or= 6.5 % Please note range changes. Basophil percentageon 2021 Chloride [Moles/Vol] 101 mmol/L 98-107 [facility] Work Phone: Glucose [Mass/Vol] 182 mg/dL 74-106 [facility] Work Phone: Comment on above: Fasting Glucose resu lt greater than or equal to 126 mg/dL suggests DIABETES MELLITUS per A.D.A. criteria. Potassium [Moles/Vol] 4.2 mmol/L 3.5-5.1 [facility] Work Phone: Sodium [Moles/Vol] 143 mmol/L 136-145 [facility] Work Phone: Iron measurement (mass/mass) on 03-03-2022 Iron (Unsp spec) [Mass/Mass] 215 ug/dL 65-[address] [facility] Work Phone: Laboratory - Chemistry and C hemistry - challengeon 03-03-2022 CO2 [Moles/Vol] 30.0 mmol/L 21.0-32.[address] [facility] Work Phone: Urea nitrogen/Creatinine [Mass ratio] 12.4 mg/mg 10-[address] [facility] Work Phone: No Panel Informationon 03-03 Estimated GFR (MDRD) Amer 53 mL/min >[address] [facility] Work Phone: Comment on above: GFR Calc Estimated GFR (MDRD) Non-Af Amer 44 mL/min >[address] [facility] Work Phone: Comment on above: Non- GFR Calc Total Iron Binding Capacity 430 ug/dL 250-[address] [facility] Work Phone: Serum or plasma calcium odilon urement (mass/volume)on 03-03-2022 Calcium [Mass/Vol] 9.7 mg/dL 8.5-10.1 [facility] Work Phone: Serum or plasma creatinine m easurement (mass/volume)on 03-03-2022 Creatinine [Mass/Vol] 1.61 mg/dL 0.70-1.30 [facility] Work Phone: Comment on above: The validity of the calculated GFR & GFRAA in patients over 70 years has not been determined. Clinical correlation is essential. Serum or plasma iron saturat ion measurement (mass fraction)on 03-03-2022 Iron saturation [Mass fraction] 50.0 % 15.0-55.[address] [facility] Work Phone: Serum or plasma urea nitroge n measurement (mass/volume)on 03-03-2022 Urea nitrogen [Mass/Vol] 20 mg/dL 7-[address] [facility] Work Phone: [phone] Thin prep Papanicolaou smear with manual screeningon 03-03-2022 Thin prep Papanicolaou smear with manual screening 12 5-[address] [facility] Work Phone: [phone] Absolute lymphocyte counton 02-16-2022 Lymphocytes Auto (Unsp spec) [#/Vol] 1.20 10*3/uL 0.83-4.[address] [facility] Work Phone: Basophil percentageon 2021 Basophils/100 WBC (Bld) 0.9 % 0-1 [facility] Work Phone: Bilirubin [Mass/Vol] 0.70 mg/dL 0.20-1.00 [facility] Work Phone: Comment on above: For patients on eltr ombopag therapy, use of Dimension [place] TBIL is not recommended. Chloride [Moles/Vol] 103 mmol/L 98-107 [facility] Work Phone: Eosinophils/100 WBC (Bld) 3.2 % 0-[address] [facility] Work Phone: Glucose [Mass/Vol] 133 mg/dL 74-106 [facility] Work Phone: Comment on above: Fasting Glucose resu lt greater than or equal to 126 mg/dL suggests DIABETES MELLITUS per A.D.A. criteria. Neutrophils (Bld) [#/Vol] 3.3 10*3/uL 2.0-7.[address] [facility] Work Phone: Neutrophils/100 WBC (Bld) 61.6 % 47-[address] [facility] Work Phone: Potassium [Moles/Vol] 5.5 mmol/L 3.5-5.1 [facility] Work Phone: Comment on above: Moderate Hemolysis, Result may be falsely increased. Protein [Mass/Vol] 7.1 g/dL 6.4-8.2 [facility] Work Phone: Sodium [Moles/Vol] 139 mmol/L 136-145 [facility] Work Phone: WBC (Bld) [#/Vol] 5.4 10*3/uL 4.4-11.0 [facility] Work Phone: Blood erythrocytes count (nu mber/volume)on 02-16-2022 RBC (Bld) [#/Vol] 3.85 10*6/uL 4.6-6.2 [facility] Work Phone: Blood hemoglobin measurement (mass/volume)on 02-16-2022 Hemoglobin (Bld) [Mass/Vol] 11.1 g/dL 13.0-16.[address] [facility] Work Phone: Blood lymphocytes/100 leukoc yteson 02-16-2022 Lymphocytes/100 WBC (Bld) 22.4 % 19-[address] [facility] Work Phone: Blood monocytes/100 leukocyt eson 02-16-2022 Monocytes/100 WBC (Bld) 11.2 % 0-10 [facility] Work Phone: Blood platelet mean volumeon 02-16-2022 Platelet mean volume (Bld) [Entitic vol] 9.1 fL 6.2-12.[address] [facility] Work Phone: Determination of erythrocyte mean corpuscular volume (MCV)on 02-16-2022 MCV (RBC) [Entitic vol] 89.9 fL 80-94 [facility] Work Phone: [phone] Hematocrit Auto (Bld) [Volum e fraction]on 02-16-2022 Hematocrit (Bld) [Volume fraction] 34.6 % 40-[address] [facility] Work Phone: Iron measurement (mass/mass) on 02-16-2022 Iron (Unsp spec) [Mass/Mass] 63 ug/dL 65-[address] [facility] Work Phone: Comment on above: Moderate Hemolysis, Result may be falsely increased. Laboratory - Chemistry and C hemistry - challengeon 02-16-2022 ALP [Catalytic activity/Vol] 26 U/L 45-[address] [facility] Work Phone: [phone] ALT [Catalytic activity/Vol] 16 U/L 16-[address] [facility] Work Phone: [phone] CO2 [Moles/Vol] 27.0 mmol/L 21.0-32.[address] [facility] Work Phone: [phone] Free T4 [Mass/Vol] 0.90 ng/dL 0.76-1.46 [facility] Work Phone: [phone] Globulin (S) [Mass/Vol] 3.4 g/dL 2.2-4.2 [facility] Work Phone: [phone] Urea nitrogen/Creatinine [Mass ratio] 13.3 mg/mg 10-[address] [facility] Work Phone: [phone] Laboratory - Hematology and Cell countson 02-16-2022 Erythrocyte distribution width (RBC) [Entitic vol] 57.6 fL 35.1-43.[address] [facility] Work Phone: [phone] Erythrocyte distribution width (RBC) [Ratio] 17.4 % 11.6-14.[address] [facility] Work Phone: [phone] Immature granulocytes/100 WBC (Bld) 0.700 % 0.0-0.[address] [facility] Work Phone: [phone] Comment on above: IG% - Immature Granu locytes (promyelocytes, myelocytes and metamyelocytes) > 1% indicates that a LEFT SHIFT is Present. MCH (RBC) [Entitic mass] 28.8 pg 27.0-32.[address] [facility] Work Phone: [phone] Nucleated RBC/100 WBC (Bld) [Ratio] 0 % 0-[address] [facility] Work Phone: [phone] MCHC Auto (RBC) [Mass/Vol]on 02-16-2022 MCHC (RBC) [Mass/Vol] 32.1 g/dL 32-36 [facility] Work Phone: [phone] Panel Informationon 02-16 Estimated GFR (MDRD) Amer 46 mL/min >[address] [facility] Work Phone: [phone] Comment on above: GFR Calc Estimated GFR (MDRD) Non-Af Amer 38 mL/min >[address] [facility] Work Phone: [phone] Comment on above: Non- GFR Calc Free Triiodothyronine (T3) pg/dL 2.5 pg/mL 2.18-3.[address] [facility] Work Phone: [phone] Prostate Specific Antigen Screen 1.22 ng/mL 0.00-4.[address] [facility] Work Phone: [phone] Comment on above: This test was perfor med using the TPSA assay method for the[facility] system. Values obtained with differentassay methods cannot be used interchangably.When changing PSA assays in the course of monitoring apatient, additional sequential testing should be carriedout to confirm baseline values. Thyroid Stimulating Hormone (TSH) 2.23 uIU/mL 0.358-3.[address] [facility] Work Phone: [phone] Total Iron Binding Capacity 454 ug/dL 250-[address] [facility] Work Phone: [phone] Comment on above: Moderate Hemolysis, Result may be falsely increased. Vitamin D 25-Hydroxy 59.5 ng/mL [facility] Work Phone: Comment on above: Vitamin D 25(OH) Sta tus Range Deficiency <20 ng/mL (50nmol/L) Insufficiency 20 - 30 ng/mL (50 - 75 nmol/L) Sufficiency 30 - 100 ng/mL (75 - 250 nmol/L) Toxicity >100 ng/mL (>250 nmol/L) Platelets bldon 02-16-2022 Platelets (Bld) [#/Vol] 289 10*3/uL 150-[address] [facility] Work Phone: [phone] Serum or plasma albumin odilon urement (mass/volume)on 02-16-2022 Albumin [Mass/Vol] 3.7 g/dL 3.2-5.0 [facility] Work Phone: [phone] Serum or plasma albumin/glob ulin mass ratioon 02-16-2022 Albumin/Globulin [Mass ratio] 1.1 {ratio} 0.9-2.[address] [facility] Work Phone: [phone] Serum or plasma calcium odilon urement (mass/volume)on 02-16-2022 Calcium [Mass/Vol] 10.0 mg/dL 8.5-10.1 [facility] Work Phone: [phone] Serum or plasma creatinine m easurement (mass/volume)on 02-16-2022 Creatinine [Mass/Vol] 1.80 mg/dL 0.70-1.30 [facility] Work Phone: Comment on above: The validity of the calculated GFR & GFRAA in patients over 70 years has not been determined. Clinical correlation is essential. Serum or plasma iron saturat ion measurement (mass fraction)on 02-16-2022 Iron saturation [Mass fraction] 13.9 % 15.0-55.[address] [facility] Work Phone: Serum or plasma urea nitroge n measurement (mass/volume)on 02-16-2022 Urea nitrogen [Mass/Vol] 24 mg/dL 7-[address] [facility] Work Phone: Thin prep Papanicolaou smear with manual screeningon 02-16-2022 Thin prep Papanicolaou smear with manual screening 30 U/L 15-[address] [facility] Work Phone: Comment on above: Moderate Hemolysis, Result may be falsely increased. Thin prep Papanicolaou smear with manual screening 9 5-[address] [facility] Work Phone: Laboratory - Hematology and Cell countson 02-14-2022 HbA1c (Bld) [Mass fraction] 6.3 % 4.2-6.[address] [facility] Work Phone: Absolute lymphocyte counton 10-26-2021 Lymphocytes Auto (Unsp spec) [#/Vol] 1.47 10*3/uL 0.83-4.[address] [facility] Work Phone: Basophil percentageon 2021 Basophils/100 WBC (Bld) 0.7 % 0-1 [facility] Work Phone: Chloride [Moles/Vol] 103 mmol/L 98-107 [facility] Work Phone: [phone] Eosinophils/100 WBC (Bld) 3.4 % 0-[address] [facility] Work Phone: Glucose [Mass/Vol] 109 mg/dL 74-106 [facility] Work Phone: Comment on above: Fasting Glucose resu lt from 100 to 125 mg/dL suggests IMPAIRED HOMEOSTASIS per A.D.A. criteria. Neutrophils (Bld) [#/Vol] 3.3 10*3/uL 2.0-7.[address] [facility] Work Phone: Neutrophils/100 WBC (Bld) 58.1 % 47-[address] [facility] Work Phone: Potassium [Moles/Vol] 4.7 mmol/L 3.5-5.1 [facility] Work Phone: Sodium [Moles/Vol] 138 mmol/L 136-145 [facility] Work Phone: WBC (Bld) [#/Vol] 5.6 10*3/uL 4.4-11.0 [facility] Work Phone: Blood erythrocytes count (nu mber/volume)on 10-26-2021 RBC (Bld) [#/Vol] 4.32 10*6/uL 4.6-6.2 [facility] Work Phone: Blood hemoglobin measurement (mass/volume)on 10-26-2021 Hemoglobin (Bld) [Mass/Vol] 11.6 g/dL 13.0-16.[address] [facility] Work Phone: Blood lymphocytes/100 leukoc yteson 10-26-2021 Lymphocytes/100 WBC (Bld) 26.1 % 19-[address] [facility] Work Phone: Blood monocytes/100 leukocyt eson 10-26-2021 Monocytes/100 WBC (Bld) 11.0 % 0-10 [facility] Work Phone: Blood platelet mean volumeon 10-26-2021 Platelet mean volume (Bld) [Entitic vol] 9.3 fL 6.2-12.[address] [facility] Work Phone: Determination of erythrocyte mean corpuscular volume (MCV)on 10-26-2021 MCV (RBC) [Entitic vol] 86.1 fL 80-94 [facility] Work Phone: Hematocrit Auto (Bld) [Volum e fraction]on 10-26-2021 Hematocrit (Bld) [Volume fraction] 37.2 % 40-[address] [facility] Work Phone: Laboratory - Chemistry and C hemistry - challengeon 10-26-2021 CO2 [Moles/Vol] 28.0 mmol/L 21.0-32.[address] [facility] Work Phone: [phone] Natriuretic peptide B (Bld) [Mass/Vol] 98.4 pg/mL 0-[address] [facility] Work Phone: [phone] Urea nitrogen/Creatinine [Mass ratio] 14.4 mg/mg 10-[address] [facility] Work Phone: [phone] Laboratory - Hematology and Cell countson 10-26-2021 Erythrocyte distribution width (RBC) [Entitic vol] 50.3 fL 35.1-43.[address] [facility] Work Phone: [phone] Erythrocyte distribution width (RBC) [Ratio] 16.2 % 11.6-14.[address] [facility] Work Phone: [phone] Immature granulocytes/100 WBC (Bld) 0.700 % 0.0-0.[address] [facility] Work Phone: [phone] Comment on above: IG% - Immature Granu locytes (promyelocytes, myelocytes and metamyelocytes) > 1% indicates that a LEFT SHIFT is Present. MCH (RBC) [Entitic mass] 26.9 pg 27.0-32.[address] [facility] Work Phone: [phone] Nucleated RBC/100 WBC (Bld) [Ratio] 0 % 0-[address] [facility] Work Phone: [phone] MCHC Auto (RBC) [Mass/Vol]on 10-26-2021 MCHC (RBC) [Mass/Vol] 31.2 g/dL 32-36 [facility] Work Phone: [phone] Panel Informationon 10-26 Estimated GFR (MDRD) Amer 56 mL/min >[address] [facility] Work Phone: [phone] Comment on above: GFR Calc Estimated GFR (MDRD) Non-Af Amer 46 mL/min >[address] [facility] Work Phone: [phone] Comment on above: Non- GFR Calc Platelets bldon 10-26-2021 Platelets (Bld) [#/Vol] 259 10*3/uL 150-[address] [facility] Work Phone: [phone] Serum or plasma calcium odilon urement (mass/volume)on 10-26-2021 Calcium [Mass/Vol] 10.1 mg/dL 8.5-10.1 [facility] Work Phone: [phone] Serum or plasma creatinine m easurement (mass/volume)on 10-26-2021 Creatinine [Mass/Vol] 1.53 mg/dL 0.70-1.30 [facility] Work Phone: [phone] Comment on above: The validity of the calculated GFR & GFRAA in patients over 70 years has not been determined. Clinical correlation is essential. Serum or plasma urea nitroge n measurement (mass/volume)on 10-26-2021 Urea nitrogen [Mass/Vol] 22 mg/dL 7-[address] [facility] Work Phone: [phone] Thin prep Papanicolaou smear with manual screeningon 10-26-2021 Thin prep Papanicolaou smear with manual screening 7 5-[address] [facility] Work Phone: [phone] Absolute lymphocyte counton 10-13-2021 Lymphocytes Auto (Unsp spec) [#/Vol] 0.99 10*3/uL 0.83-4.[address] [facility] Work Phone: Basophil percentageon 2021 Basophils/100 WBC (Bld) 0.9 % 0-1 [facility] Work Phone: [phone] Bilirubin [Mass/Vol] 0.70 mg/dL 0.20-1.00 [facility] Work Phone: [phone] Comment on above: For patients on eltr ombopag therapy, use of Dimension [place] TBIL is not recommended. Chloride [Moles/Vol] 102 mmol/L 98-107 [facility] Work Phone: [phone] Cholesterol [Mass/Vol] 169 mg/dL <200 [facility] Work Phone: [phone] Comment on above: <200 mg/dL Desirable 200-240 mg/dL Borderline >240 mg/dL High Risk Eosinophils/100 WBC (Bld) 3.1 % 0-[address] [facility] Work Phone: [phone] Glucose [Mass/Vol] 144 mg/dL 74-106 [facility] Work Phone: Comment on above: Fasting Glucose resu lt greater than or equal to 126 mg/dL suggests DIABETES MELLITUS per A.D.A. criteria. Neutrophils (Bld) [#/Vol] 2.9 10*3/uL 2.0-7.[address] [facility] Work Phone: Neutrophils/100 WBC (Bld) 62.2 % 47-[address] [facility] Work Phone: [phone] Potassium [Moles/Vol] 4.2 mmol/L 3.5-5.1 [facility] Work Phone: [phone] Protein [Mass/Vol] 7.1 g/dL 6.4-8.2 [facility] Work Phone: Sodium [Moles/Vol] 137 mmol/L 136-145 [facility] Work Phone: Triglyceride [Mass/Vol] 247 mg/dL <199 [facility] Work Phone: Comment on above: The drugs N-Acetylcy steine and Metamizole may falsely depress this assay.Serum Triglycerides Reference Interval Normal <150 mg/dL Borderline high 150 - 199 mg/dL High 200 - 499 mg/dL Very High > or = 500 mg/dL WBC (Bld) [#/Vol] 4.6 10*3/uL 4.4-11.0 [facility] Work Phone: Blood erythrocytes count (nu mber/volume)on 10-13-2021 RBC (Bld) [#/Vol] 4.18 10*6/uL 4.6-6.2 [facility] Work Phone: Blood hemoglobin measurement (mass/volume)on 10-13-2021 Hemoglobin (Bld) [Mass/Vol] 11.2 g/dL 13.0-16.[address] [facility] Work Phone: Blood lymphocytes/100 leukoc yteson 10-13-2021 Lymphocytes/100 WBC (Bld) 21.6 % 19-[address] [facility] Work Phone: Blood monocytes/100 leukocyt eson 10-13-2021 Monocytes/100 WBC (Bld) 11.5 % 0-10 [facility] Work Phone: [phone] Blood platelet mean volumeon 10-13-2021 Platelet mean volume (Bld) [Entitic vol] 10.5 fL 6.2-12.[address] [facility] Work Phone: [phone] Determination of erythrocyte mean corpuscular volume (MCV)on 10-13-2021 MCV (RBC) [Entitic vol] 86.4 fL 80-94 [facility] Work Phone: [phone] Hematocrit Auto (Bld) [Volum e fraction]on 10-13-2021 Hematocrit (Bld) [Volume fraction] 36.1 % 40-[address] [facility] Work Phone: Laboratory - Chemistry and C hemistry - challengeon 10-13-2021 ALP [Catalytic activity/Vol] 27 U/L 45-[address] [facility] Work Phone: [phone] ALT [Catalytic activity/Vol] 21 U/L 16-[address] [facility] Work Phone: [phone] CO2 [Moles/Vol] 28.0 mmol/L 21.0-32.[address] [facility] Work Phone: [phone] Cobalamin (Vitamin B12) [Mass/Vol] 891 pg/mL 211-[address] [facility] Work Phone: [phone] Free T4 [Mass/Vol] 0.93 ng/dL 0.76-1.46 [facility] Work Phone: [phone] Globulin (S) [Mass/Vol] 3.4 g/dL 2.2-4.2 [facility] Work Phone: [phone] Urea nitrogen/Creatinine [Mass ratio] 15.2 mg/mg 10-[address] [facility] Work Phone: [phone] Laboratory - Hematology and Cell countson 10-13-2021 Erythrocyte distribution width (RBC) [Entitic vol] 49.8 fL 35.1-43.[address] [facility] Work Phone: Erythrocyte distribution width (RBC) [Ratio] 15.8 % 11.6-14.[address] [facility] Work Phone: Immature granulocytes/100 WBC (Bld) 0.700 % 0.0-0.[address] [facility] Work Phone: [phone] Comment on above: IG% - Immature Granu locytes (promyelocytes, myelocytes and metamyelocytes) > 1% indicates that a LEFT SHIFT is Present. MCH (RBC) [Entitic mass] 26.8 pg 27.0-32.[address] [facility] Work Phone: Nucleated RBC/100 WBC (Bld) [Ratio] 0 % 0-[address] [facility] Work Phone: [phone] MCHC Auto (RBC) [Mass/Vol]on 10-13-2021 MCHC (RBC) [Mass/Vol] 31.0 g/dL 32-36 [facility] Work Phone: No Panel Informationon 10-13 Estimated GFR (MDRD) Amer 63 mL/min >[address] [facility] Work Phone: Comment on above: GFR Calc Estimated GFR (MDRD) Non-Af Amer 52 mL/min >[address] [facility] Work Phone: Comment on above: Non- GFR Calc Free Triiodothyronine (T3) pg/dL 2.2 pg/mL 2.18-3.[address] [facility] Work Phone: [phone] Thyroid Stimulating Hormone (TSH) 2.15 uIU/mL 0.358-3.[address] [facility] Work Phone: Vitamin D 25-Hydroxy 67.7 ng/mL [facility] Work Phone: [phone] Comment on above: Vitamin D 25(OH) Sta tus Range Deficiency <20 ng/mL (50nmol/L) Insufficiency 20 - 30 ng/mL (50 - 75 nmol/L) Sufficiency 30 - 100 ng/mL (75 - 250 nmol/L) Toxicity >100 ng/mL (>250 nmol/L) Platelets bldon 10-13-2021 Platelets (Bld) [#/Vol] 238 10*3/uL 150-[address] [facility] Work Phone: Serum or plasma albumin odilon urement (mass/volume)on 10-13-2021 Albumin [Mass/Vol] 3.7 g/dL 3.2-5.0 [facility] Work Phone: Serum or plasma albumin/glob ulin mass ratioon 10-13-2021 Albumin/Globulin [Mass ratio] 1.1 {ratio} 0.9-2.[address] [facility] Work Phone: Serum or plasma calcium odilon urement (mass/volume)on 10-13-2021 Calcium [Mass/Vol] 9.5 mg/dL 8.5-10.1 [facility] Work Phone: Serum or plasma cholesterol in HDL measurement (mass/volume)on 10-13-2021 Cholesterol in HDL [Mass/Vol] 41 mg/dL >[address] [facility] Work Phone: Comment on above: The drugs N-Acetylcy steine and Metamizole may falsely depress this assay. Reference Range HDL <40 mg/dL Low HDL Cholesterol HDL >or= 60 mg/dL High HDL Cholesterol Serum or plasma cholesterol in VLDL measurement (mass/volume)on 10-13-2021 Cholesterol in VLDL [Mass/Vol] 49 mg/dL 5-[address] [facility] Work Phone: Serum or plasma creatinine m easurement (mass/volume)on 10-13-2021 Creatinine [Mass/Vol] 1.38 mg/dL 0.70-1.30 [facility] Work Phone: Comment on above: The validity of the calculated GFR & GFRAA in patients over 70 years has not been determined. Clinical correlation is essential. Serum or plasma low density lipoprotein (LDL) cholesterol measurement (mass/volume)on 10-13-2021 Cholesterol in LDL [Mass/Vol] 79 mg/dL 0-[address] [facility] Work Phone: Serum or plasma urea nitroge n measurement (mass/volume)on 10-13-2021 Urea nitrogen [Mass/Vol] 21 mg/dL 7-[address] [facility] Work Phone: Thin prep Papanicolaou smear with manual screeningon 10-13-2021 Thin prep Papanicolaou smear with manual screening 17 U/L 15-[address] [facility] Work Phone: Thin prep Papanicolaou smear with manual screening 7 5-[address] [facility] Work Phone: Laboratory - Hematology and Cell countson 09-07-2021 HbA1c (Bld) [Mass fraction] 7.7 % [facility] Work Phone: Laboratory - Chemistry and C hemistry - challengeon 06-22-2021 Cobalamin (Vitamin B12) [Mass/Vol] 717 pg/mL 211-[address] [facility] Work Phone: Office Visit: abdominal pain on 05-09-2017 Documentation of current medications (procedure) Done Invalid Interpretation Code [facility] Work Phone: Fall risk assessment No Invalid Interpretation Code [facility] Work Phone: Tobacco smoking status NHIS Never Invalid Interpretation Code [facility] Work Phone: Tobacco use HS Former smoker Invalid Interpretation Code [facility] Work Phone: Lab Report: BNP,B-Type NATRI URETIC PEPTIDEon 01-20-2017 BNP 20.0 pg/mL Invalid Interpretation Code 0-100 [facility] Work Phone: Lab Report: Basic Metabolic Profile (BMP)on 01-20-2017 Anion gap 7 mmol/L Invalid Interpretation Code 5-15 [facility] [employer] Work Phone: BUN/Creatinine Ratio 14.6 RATIO Invalid Interpretation Code 10-20 [facility] [employer] Work Phone: Calcium 10.0 mg/dL Invalid Interpretation Code 8.5-10.1 [facility] [employer] Work Phone: Chloride 101 mmol/L Invalid Interpretation Code 98-107 [facility] [employer] Work Phone: CO2 30.0 mmol/L Invalid Interpretation Code 21.0-32.0 [facility] [employer] Work Phone: Creatinine 1.30 mg/dL Invalid Interpretation Code 0.70-1.30 [facility] [employer] Work Phone: [phone] eGFR (non-black) 68 mL/min/{1.73_m2} Invalid Interpretation Code >60 [facility] [employer] Work Phone: eGFR (non-black) 57 mL/min/{1.73_m2} Low >60 [facility] [employer] Work Phone: [phone] Glucose mass conc 110 mg/dL Invalid Interpretation Code 70-110 [facility] [employer] Work Phone: [phone] Potassium molar conc 4.5 mmol/L Invalid Interpretation Code 3.5-5.1 [facility] [employer] Work Phone: [phone] Sodium 138 mmol/L Invalid Interpretation Code 136-145 [facility] [employer] Work Phone: [phone] Urea nitrogen 19 mg/dL High 7-18 [facility] [employer] Work Phone: Lab Report: CBC W/Diff, Auto matedon 01-20-2017 Absolute Neut 3.3 X10 3/UL Invalid Interpretation Code 2.0-7.7 [facility] [employer] Work Phone: [phone] Basophils/100 WBC Auto (Bld) 1.0 % Invalid Interpretation Code 0-1 [facility] [employer] Work Phone: [phone] Eosinophils/100 leukocytes 5.6 % High 0-5 [facility] [employer] Work Phone: Erythrocyte distribution width Auto Ratio (RBC) 13.9 % Invalid Interpretation Code 11.6-14.6 [facility] [employer] Work Phone: [phone] Erythrocytes (RBC) 4.45 10*6/uL Low 4.6-6.2 [facility] [employer] Work Phone: Hematocrit (HCT) 42.4 % Invalid Interpretation Code 40-54 [facility] [employer] Work Phone: [phone] Hemoglobin mass conc (Bld) 14.0 g/dL Invalid Interpretation Code 13.0-16.5 [facility] [employer] Work Phone: Immature granulocytes/100 WBC (Bld) 0.700 % Invalid Interpretation Code 0.0-0.9 [facility] [employer] Work Phone: Lymphocytes 1.55 X10 3/UL Invalid Interpretation Code 0.83-4.51 [facility] [employer] Work Phone: Lymphocytes/100 leukocytes 27.1 % Invalid Interpretation Code 19-41 [facility] [employer] Work Phone: MCH 31.5 pg Invalid Interpretation Code 27.0-32.0 [facility] [employer] Work Phone: MCHC mass conc (RBC) 33.0 G/GL Invalid Interpretation Code 32-36 [facility] [employer] Work Phone: MCV 95.3 fL High 80-94 [facility] [employer] Work Phone: Monocytes/100 leukocytes 7.5 % Invalid Interpretation Code 0-10 [facility] [employer] Work Phone: Neutrophils/100 WBC Auto (Bld) 58.1 % Invalid Interpretation Code 47-70 [facility] [employer] Work Phone: Platelets 185 10*3/mm3 Invalid Interpretation Code 150-450 [facility] [employer] Work Phone: PMV by Ismael 9.8 fL Invalid Interpretation Code 6.2-12.0 [facility] [employer] Work Phone: RDW SD 48.2 fL High 35.1-43.9 [facility] [employer] Work Phone: WBC (Leukocytes) 5.7 10*3/uL Invalid Interpretation Code 4.4-11.0 [facility] [employer] Work Phone: Clinical Lists Update: Prelo roller 08-31-2016 Left ventricular Ejection fraction 55 % Invalid Interpretation Code [facility] [employer] Work Phone: Lab Report: Ferritinon 03-21 Ferritin 7 ng/mL Low 26-388 [facility] [employer] Work Phone: Lab Report: Iron+Iron Bindin g Capacityon 03-21-2016 Iron 24 ug/dL Low 65-175 [facility] [employer] Work Phone: iron binding capacity, total 512 ug/dL High 250-450 [facility] [employer] Work Phone: iron saturation percent, serum 4.7 % Low 15.0-55.0 [facility] [employer] Work Phone: Lab Report: Retic Panelon RET-HE 22.4 pg Low 30-35 [facility] [employer] Work Phone: [phone] Reticulocytes/100 erythrocytes 1.25 % Invalid Interpretation Code 0.5-1.5 [facility] [employer] Work Phone: Replaced Document: Miguelito CASTELLANOS Observationson 03-08-2016 BUN (urea nitrogen) Sinus Rhythm -Right bundle branch block. ABNORMAL Invalid Interpretation Code [facility] [employer] Work Phone: EKG QRS axis -12 deg Invalid Interpretation Code [facility] [employer] Work Phone: [phone] P [place] 40 deg Invalid Interpretation Code [facility] [employer] Work Phone: [phone] [place] Interval 138 ms Invalid Interpretation Code [facility] [employer] Work Phone: Pulse (Heart Rate) 76 /min Invalid Interpretation Code [facility] [employer] Work Phone: [phone] QRS Duration 136 ms Invalid Interpretation Code [facility] [employer] Work Phone: QT Interval new path ms Invalid Interpretation Code [facility] [employer] Work Phone: T [place] -1 deg Invalid Interpretation Code [facility] [employer] Work Phone: Lab Report: Lipid Profileon 10-19-2015 Cholesterol 140 mg/dL Invalid Interpretation Code 200 [facility] [employer] Work Phone: HDL Cholesterol 35 mg/dL Low [facility] jeanette [employer] Work Phone: LDL Cholesterol 72 mg/dL Invalid Interpretation Code 0-130 [facility] [employer] Work Phone: Triglyceride 163 mg/dL Invalid Interpretation Code [facility] [employer] Work Phone: very low density lipoproteins 33 mg/dL Invalid Interpretation Code 5-40 [facility] [employer] Work Phone: Lab Report: Liver Profileon 10-19-2015 Alanine aminotransferase (ALT) 38 U/L Invalid Interpretation Code 12-78 [facility] [employer] Work Phone: Albumin 3.9 g/dL Invalid Interpretation Code 3.4-5.0 [facility] [employer] Work Phone: Alkaline phosphatase (ALP) 37 U/L Low 50-136 [facility] [employer] Work Phone: Aspartate aminotransferase (AST) 30 U/L Invalid Interpretation Code 15-37 [facility] [employer] Work Phone: Bilirubin (direct) 0.14 mg/dL Invalid Interpretation Code 0.00-0.30 [facility] [employer] Work Phone: Bilirubin (total) 0.60 mg/dL Invalid Interpretation Code 0.20-1.00 [facility] [employer] Work Phone: Globulin 3.1 g/dL Invalid Interpretation Code 2.3-3.5 [facility] [employer] Work Phone: Protein 7.0 g/dL Invalid Interpretation Code 6.4-8.2 [facility] [employer] Work Phone: Office Visit: [facility] 08-27-19 16 Fall risk assessment Invalid Interpretation Code [facility] [employer] Work Phone: Office Visiton 05-29-2014 cardiac risk group C Invalid Interpretation Code [facility] [employer] Work Phone: General cardiovascular disease 10Y risk [#] [place]D'Agostino N/A Invalid Interpretation Code [facility] [employer] Work Phone: Smoking cessation education (procedure) yes Invalid Interpretation Code [facility] [employer] Work Phone: Vital Signs Date Time Vital Sign Value Performing Clinician Facility 01-06-2025 14:06-0400 Body height 162.[address] Keron Maciel MD Work Phone: [facility] 01-06-2025 14:06-0400 Body mass index (BMI) [Ratio] 38.6 kg/m2 Dr. Keron Maciel MD Work Phone: [facility] 01-06-2025 14:06-0400 Body temperature 98.4 [degF] Dr. Keron Maciel MD Work Phone: [facility] 01-06-2025 14:06-0400 Body weight 102.[address] Keron Maciel MD Work Phone: [facility] 01-06-2025 14:06-0400 Diastolic blood pressure 75 mm[Hg] Dr. Keron Maciel MD Work Phone: [facility] 01-06-2025 14:06-0400 Heart rate 63 /min Dr. Keron Maciel MD Work Phone: [facility] 01-06-2025 14:06-0400 Respiratory rate 16 /min Dr. Keron Maciel MD Work Phone: [facility] 01-06-2025 14:06-0400 SaO2% (BldA) [Mass fraction] 94 % Dr. Keron Maciel MD Work Phone: [facility] 01-06-2025 14:06-0400 Systolic blood pressure 134 mm[Hg] Dr. Keron Maciel MD Work Phone: [facility] 12-31-2024 17:18-0400 Body temperature 98.8 [degF] Dr. Keron Maciel MD Work Phone: [facility] 12-31-2024 17:18-0400 Diastolic blood pressure 96 mm[Hg] Dr. Keron Maciel MD Work Phone: [facility] 12-31-2024 17:18-0400 Heart rate 69 /min Dr. Keron Maciel MD Work Phone: [facility] 12-31-2024 17:18-0400 Respiratory rate 16 /min Dr. Keron Maciel MD Work Phone: [facility] 12-31-2024 17:18-0400 SaO2% (BldA) [Mass fraction] 96 % Dr. Keron Maciel MD Work Phone: [facility] 12-31-2024 17:18-0400 Systolic blood pressure 148 mm[Hg] Dr. Keron Maciel MD Work Phone: [facility] 12-31-2024 14:26-0400 Body height 162.[address] Keron Maciel MD Work Phone: [facility] 12-31-2024 14:26-0400 Body mass index (BMI) [Ratio] 39.1 kg/m2 Dr. Keron Maciel MD Work Phone: [facility] 12-31-2024 14:26-0400 Body weight 103.[address] Keron Maciel MD Work Phone: [facility] 12-30-2024 11:20-0400 Body height 160.[address] Keron Maciel MD Work Phone: [facility] 12-30-2024 11:20-0400 Body mass index (BMI) [Ratio] 39.8 kg/m2 Dr. Keron Maciel MD Work Phone: [facility] 12-30-2024 11:20-0400 Body temperature 98.4 [degF] Dr. Keron Maciel MD Work Phone: [facility] 12-30-2024 11:20-0400 Body weight 102.[address] Keron Maciel MD Work Phone: [facility] 12-30-2024 11:20-0400 Diastolic blood pressure 79 mm[Hg] Dr. Keron Maciel MD Work Phone: [facility] 12-30-2024 11:20-0400 Heart rate 74 /min Dr. Keron Maciel MD Work Phone: [facility] 12-30-2024 11:20-0400 Respiratory rate 16 /min Dr. Keron Maciel MD Work Phone: [facility] 12-30-2024 11:20-0400 SaO2% (BldA) [Mass fraction] 94 % Dr. Keron Maciel MD Work Phone: [facility] 12-30-2024 11:20-0400 Systolic blood pressure 144 mm[Hg] Dr. Keron Maciel MD Work Phone: [facility] 12-23-2024 13:40-0400 Body height 160.[address] Keron Maciel MD Work Phone: [facility] 12-23-2024 13:40-0400 Body mass index (BMI) [Ratio] 40.9 kg/m2 Dr. Keron Maciel MD Work Phone: [facility] 12-23-2024 13:40-0400 Body weight 104.[address] Keron Maciel MD Work Phone: [facility] 12-23-2024 13:40-0400 Diastolic blood pressure 67 mm[Hg] Dr. Keron Maciel MD Work Phone: [facility] 12-23-2024 13:40-0400 Heart rate 64 /min Dr. Keron Maciel MD Work Phone: [facility] 12-23-2024 13:40-0400 Respiratory rate 20 /min Dr. Keron Maciel MD Work Phone: [facility] 12-23-2024 13:40-0400 SaO2% (BldA) [Mass fraction] 95 % Dr. Keron Maciel MD Work Phone: [facility] 12-23-2024 13:40-0400 Systolic blood pressure 108 mm[Hg] Dr. Keron Maciel MD Work Phone: [facility] 12-21-2024 22:03-0400 Diastolic blood pressure 92 mm[Hg] Dr. Keron Maciel MD Work Phone: [facility] 12-21-2024 22:03-0400 Heart rate 86 /min Dr. Keron Maciel MD Work Phone: [facility] 12-21-2024 22:03-0400 Respiratory rate 18 /min Dr. Keron Maciel MD Work Phone: [facility] 12-21-2024 22:03-0400 SaO2% (BldA) [Mass fraction] 98 % Dr. Keron Maciel MD Work Phone: [facility] 12-21-2024 22:03-0400 Systolic blood pressure 165 mm[Hg] Dr. Keron Maciel MD Work Phone: [facility] 12-21-2024 20:36-0400 Body temperature 98 [degF] Dr. Keron Maciel MD Work Phone: [facility] 12-21-2024 16:08-0400 Body mass index (BMI) [Ratio] 40.8 kg/m2 Dr. Keron Maciel MD Work Phone: [facility] 12-21-2024 16:08-0400 Body weight 104.[address] Keron Maciel MD Work Phone: [facility] 12-21-2024 15:35-0400 Body height 160.[address] Keron Maciel MD Work Phone: [facility] 12-09-2024 14:04-0400 Body height 160.[address] Keron Maciel MD Work Phone: [facility] 12-09-2024 14:04-0400 Body mass index (BMI) [Ratio] 40.1 kg/m2 Dr. Keron Maciel MD Work Phone: [facility] 12-09-2024 14:04-0400 Body temperature 98.2 [degF] Dr. Keron Maciel MD Work Phone: [facility] 12-09-2024 14:04-0400 Body weight 102.[address] Keron Maciel MD Work Phone: [facility] 12-09-2024 14:04-0400 Diastolic blood pressure 72 mm[Hg] Dr. Keron Maciel MD Work Phone: [facility] 12-09-2024 14:04-0400 Heart rate 68 /min Dr. Keron Maciel MD Work Phone: [facility] 12-09-2024 14:04-0400 Respiratory rate 16 /min Dr. Keron Maciel MD Work Phone: [facility] 12-09-2024 14:04-0400 SaO2% (BldA) [Mass fraction] 93 % Dr. Keron Maciel MD Work Phone: [facility] 12-09-2024 14:04-0400 Systolic blood pressure 116 mm[Hg] Dr. Keron Maciel MD Work Phone: [facility] 11-25-2024 11:11-0400 Body height 160.[address] Keron Maciel MD Work Phone: [facility] 11-25-2024 11:11-0400 Body mass index (BMI) [Ratio] 40 kg/m2 Dr. Keron Maciel MD Work Phone: [facility] 11-25-2024 11:11-0400 Body temperature 98.6 [degF] Dr. Keron Maciel MD Work Phone: [facility] 11-25-2024 11:11-0400 Body weight 102.[address] Keron Maciel MD Work Phone: [facility] 11-25-2024 11:11-0400 Diastolic blood pressure 75 mm[Hg] Dr. Keron Maciel MD Work Phone: [facility] 11-25-2024 11:11-0400 Heart rate 77 /min Dr. Keron Maciel MD Work Phone: [facility] 11-25-2024 11:11-0400 Respiratory rate 16 /min Dr. Keron Maciel MD Work Phone: [facility] 11-25-2024 11:11-0400 SaO2% (BldA) [Mass fraction] 90 % Dr. Keron Maciel MD Work Phone: [facility] 11-25-2024 11:11-0400 Systolic blood pressure 146 mm[Hg] Dr. Keron Maciel MD Work Phone: [facility] 11-20-2024 00:56-0400 Body temperature 97.6 [degF] Dr. Keron Maciel MD Work Phone: [facility] 11-20-2024 00:56-0400 Diastolic blood pressure 7 mm[Hg] Dr. Keron Maciel MD Work Phone: [facility] 11-20-2024 00:56-0400 Heart rate 66 /min Dr. Keron Maciel MD Work Phone: [facility] 11-20-2024 00:56-0400 Respiratory rate 20 /min Dr. Keron Maciel MD Work Phone: [facility] 11-20-2024 00:56-0400 SaO2% (BldA) [Mass fraction] 91 % Dr. Keron Maciel MD Work Phone: [facility] 11-20-2024 00:56-0400 Systolic blood pressure 149 mm[Hg] Dr. Keron Maciel MD Work Phone: [facility] 11-19-2024 22:51-0400 Body mass index (BMI) [Ratio] 39.2 kg/m2 Dr. Keron Maciel MD Work Phone: [facility] 11-19-2024 22:51-0400 Body weight 100.[address] Keron Maciel MD Work Phone: [facility] 11-19-2024 22:48-0400 Body height 160.[address] Keron Maciel MD Work Phone: [facility] 08-01-2024 14:42-0500 Diastolic blood pressure 60 mm[Hg] Dr. Keron Maciel MD Work Phone: [facility] 08-01-2024 14:42-0500 Systolic blood pressure 106 mm[Hg] Dr. Keron Maciel MD Work Phone: [facility] 08-01-2024 13:55-0500 Body mass index (BMI) [Ratio] 39.3 kg/m2 Dr. Keron Maciel MD Work Phone: [facility] 08-01-2024 13:55-0500 Body temperature 97.5 [degF] Dr. Keron Maciel MD Work Phone: [facility] 08-01-2024 13:55-0500 Body weight 100.[address] Keron Maciel MD Work Phone: [facility] 08-01-2024 13:55-0500 Heart rate 89 /min Dr. Keron Maciel MD Work Phone: [facility] 08-01-2024 13:55-0500 Respiratory rate 17 /min Dr. Keron Maciel MD Work Phone: [facility] 08-01-2024 13:55-0500 SaO2% (BldA) [Mass fraction] 97 % Dr. Keron Maciel MD Work Phone: [facility] 07-25-2024 14:40-0500 Body mass index (BMI) [Ratio] 39.7 kg/m2 Dr. Keron Maciel MD Work Phone: [facility] 07-25-2024 14:40-0500 Body temperature 98.2 [degF] Dr. Keron Maciel MD Work Phone: [facility] 07-25-2024 14:40-0500 Body weight 101.[address] Keron Maciel MD Work Phone: [facility] 07-25-2024 14:40-0500 Diastolic blood pressure 83 mm[Hg] Dr. Keron Maciel MD Work Phone: [facility] 07-25-2024 14:40-0500 Heart rate 68 /min Dr. Keron Maciel MD Work Phone: [facility] 07-25-2024 14:40-0500 Respiratory rate 16 /min Dr. Keron Maciel MD Work Phone: [facility] 07-25-2024 14:40-0500 SaO2% (BldA) [Mass fraction] 96 % Dr. Keron Maciel MD Work Phone: [facility] 07-25-2024 14:40-0500 Systolic blood pressure 130 mm[Hg] Dr. Keron Maciel MD Work Phone: [facility] 09-14-2023 15:11-0400 Body height 162.[address] Keron Maciel Work Phone: [facility] 09-14-2023 15:11-0400 Body mass index (BMI) [Ratio] 38.7 kg/m2 Dr. Keron Maciel Work Phone: [facility] 09-14-2023 15:11-0400 Body temperature 97.3 [degF] Dr. Keron Maciel Work Phone: [facility] 09-14-2023 15:11-0400 Body weight 102.[address] Keron Maciel Work Phone: [facility] 09-14-2023 15:11-0400 Diastolic blood pressure 91 mm[Hg] Dr. Keron Maciel Work Phone: [facility] 09-14-2023 15:11-0400 Heart rate 87 /min Dr. Keron Maciel Work Phone: [facility] 09-14-2023 15:11-0400 Respiratory rate 17 /min Dr. Keron Maciel Work Phone: [facility] 09-14-2023 15:11-0400 SaO2% (BldA) [Mass fraction] 97 % Dr. Keron Maciel Work Phone: [facility] 09-14-2023 15:11-0400 Systolic blood pressure 167 mm[Hg] Dr. Keron Maciel Work Phone: [facility] 08-10-2023 15:48-0500 Body mass index (BMI) [Ratio] 39.4 kg/m2 Dr. Keron Maciel Work Phone: [facility] 08-10-2023 15:48-0500 Body temperature 97.7 [degF] Dr. Keron Maciel Work Phone: [facility] 08-10-2023 15:48-0500 Body weight 104.[address] Keron Maciel Work Phone: [facility] 08-10-2023 15:48-0500 Diastolic blood pressure 84 mm[Hg] Dr. Keron Maciel Work Phone: [facility] 08-10-2023 15:48-0500 Heart rate 78 /min Dr. Keron Maciel Work Phone: [facility] 08-10-2023 15:48-0500 Respiratory rate 14 /min Dr. Keron Maciel Work Phone: [facility] 08-10-2023 15:48-0500 SaO2% (BldA) [Mass fraction] 94 % Dr. Keron Maciel Work Phone: [facility] 08-10-2023 15:48-0500 Systolic blood pressure 128 mm[Hg] Dr. Keron Maciel Work Phone: [facility] 07-27-2023 14:30-0500 Body temperature 97.7 [degF] Dr. Keron Maciel Work Phone: [facility] 07-27-2023 14:30-0500 Body weight 104.[address] Keron Maciel Work Phone: [facility] 07-27-2023 14:30-0500 Diastolic blood pressure 67 mm[Hg] Dr. Keron Maciel Work Phone: [facility] 07-27-2023 14:30-0500 Heart rate 90 /min Dr. Keron Maciel Work Phone: [facility] 07-27-2023 14:30-0500 Respiratory rate 17 /min Dr. Keron Maciel Work Phone: [facility] 07-27-2023 14:30-0500 SaO2% (BldA) [Mass fraction] 97 % Dr. Keron Maciel Work Phone: [facility] 07-27-2023 14:30-0500 Systolic blood pressure 122 mm[Hg] Dr. Keron Maciel Work Phone: [facility] 07-24-2023 14:04-0500 Body mass index (BMI) [Ratio] 39.4 kg/m2 Dr. Keron Maciel Work Phone: [facility] 07-24-2023 14:04-0500 Body temperature 98.7 [degF] Dr. Keron Maciel Work Phone: [facility] 07-24-2023 14:04-0500 Body weight 104.[address] Keron Maciel Work Phone: [facility] 07-24-2023 14:04-0500 Diastolic blood pressure 90 mm[Hg] Dr. Keron Maciel Work Phone: [facility] 07-24-2023 14:04-0500 Heart rate 80 /min Dr. Keron Maciel Work Phone: [facility] 07-24-2023 14:04-0500 Respiratory rate 19 /min Dr. Keron Maciel Work Phone: [facility] 07-24-2023 14:04-0500 SaO2% (BldA) [Mass fraction] 96 % Dr. Keron Maciel Work Phone: [facility] 07-24-2023 14:04-0500 Systolic blood pressure 136 mm[Hg] Dr. Keron Maciel Work Phone: [facility] 07-16-2023 19:32-0500 Body temperature 98.1 [degF] Dr. Keron Maciel Work Phone: [facility] 07-16-2023 19:32-0500 Diastolic blood pressure 84 mm[Hg] Dr. Keron Maciel Work Phone: [facility] 07-16-2023 19:32-0500 Heart rate 82 /min Dr. Keron Maciel Work Phone: [facility] [facility] 07-16-2023 19:32-0500 Respiratory rate 16 /min Dr. Keron Maciel Work Phone: [facility] 07-16-2023 19:32-0500 SaO2% (BldA) [Mass fraction] 95 % Dr. Keron Maciel Work Phone: [facility] 07-16-2023 19:32-0500 Systolic blood pressure 146 mm[Hg] Dr. Keron Maciel Work Phone: [facility] 07-16-2023 14:57-0500 Body mass index (BMI) [Ratio] 40.2 kg/m2 Dr. Keron Maciel Work Phone: [facility] 07-16-2023 14:57-0500 Body weight 106.[address] Keron Maciel Work Phone: [facility] 10-18-2022 13:46-0400 Body height 162.[address] Keron Maciel Work Phone: [facility] 10-18-2022 13:46-0400 Body mass index (BMI) [Ratio] 40.5 kg/m2 Dr. Keron Maciel Work Phone: [facility] 10-18-2022 13:46-0400 Body temperature 93 [degF] Dr. Keron Maciel Work Phone: [facility] 10-18-2022 13:46-0400 Body weight 107.[address] Keron Maciel Work Phone: [facility] 10-18-2022 13:46-0400 Diastolic blood pressure 84 mm[Hg] Dr. Keron Maciel Work Phone: [facility] 10-18-2022 13:46-0400 Heart rate 84 /min Dr. Keron Maciel Work Phone: [facility] 10-18-2022 13:46-0400 Respiratory rate 18 /min Dr. Keron Maciel Work Phone: [facility] 10-18-2022 13:46-0400 SaO2% (BldA) [Mass fraction] 94 % Dr. Keron Maciel Work Phone: [facility] 10-18-2022 13:46-0400 Systolic blood pressure 146 mm[Hg] Dr. Keron Maciel Work Phone: [facility] 10-10-2022 20:09-0400 Diastolic blood pressure 70 mm[Hg] Dr. Keron Maciel Work Phone: [facility] 10-10-2022 20:09-0400 Heart rate 86 /min Dr. Keron Maciel Work Phone: [facility] 10-10-2022 20:09-0400 Systolic blood pressure 115 mm[Hg] Dr. Keron Maciel Work Phone: [facility] 10-10-2022 13:01-0400 Body mass index (BMI) [Ratio] 41 kg/m2 Dr. Keron Maciel Work Phone: [facility] 10-10-2022 13:01-0400 Body temperature 98 [degF] Dr. Keron Maciel Work Phone: [facility] 10-10-2022 13:01-0400 Body weight 108.[address] Keron Maciel Work Phone: [facility] 10-10-2022 13:01-0400 Respiratory rate 17 /min Dr. Keron Maciel Work Phone: [facility] 10-10-2022 13:01-0400 SaO2% (BldA) [Mass fraction] 98 % Dr. Keron Maciel Work Phone: [facility] 09-28-2022 14:32-0400 Body temperature 98.8 [degF] Dr. Keron Maciel Work Phone: [facility] 09-28-2022 14:32-0400 Body weight 109.[address] Keron Maciel Work Phone: [facility] 09-28-2022 14:32-0400 Diastolic blood pressure 80 mm[Hg] Dr. Keron Maciel Work Phone: [facility] 09-28-2022 14:32-0400 Heart rate 76 /min Dr. Keron Maciel Work Phone: [facility] 09-28-2022 14:32-0400 Respiratory rate 20 /min Dr. Keron Maciel Work Phone: [facility] 09-28-2022 14:32-0400 SaO2% (BldA) [Mass fraction] 95 % Dr. Keron Maciel Work Phone: [facility] 09-28-2022 14:32-0400 Systolic blood pressure 142 mm[Hg] Dr. Keron Maciel Work Phone: [facility] 09-08-2022 14:03-0400 Body height 162.[address] Keron Maciel Work Phone: [facility] 09-08-2022 14:02-0400 Body mass index (BMI) [Ratio] 41.3 kg/m2 Dr. Keron Maciel Work Phone: [facility] 09-08-2022 14:02-0400 Body weight 109.[address] Keron Maciel Work Phone: [facility] 09-08-2022 14:02-0400 Diastolic blood pressure 71 mm[Hg] Dr. Keron Maciel Work Phone: [facility] 09-08-2022 14:02-0400 Heart rate 76 /min Dr. Keron Maciel Work Phone: [facility] 09-08-2022 14:02-0400 Respiratory rate 22 /min Dr. Keron Maciel Work Phone: [facility] 09-08-2022 14:02-0400 SaO2% (BldA) [Mass fraction] 97 % Dr. Keron Maciel Work Phone: [facility] 09-08-2022 14:02-0400 Systolic blood pressure 118 mm[Hg] Dr. Keron Maciel Work Phone: [facility] 08-03-2022 07:45-0500 Body mass index (BMI) [Ratio] 40.6 kg/m2 Dr. Keron Maciel Work Phone: [facility] 08-03-2022 07:45-0500 Body temperature 97 [degF] Dr. Keron Maciel Work Phone: [facility] 08-03-2022 07:45-0500 Body weight 107.[address] Keron Maciel Work Phone: [facility] 08-03-2022 07:45-0500 Diastolic blood pressure 83 mm[Hg] Dr. Keron Maciel Work Phone: [facility] 08-03-2022 07:45-0500 Heart rate 86 /min Dr. Keron Maciel Work Phone: [facility] 08-03-2022 07:45-0500 Respiratory rate 20 /min Dr. Keron Maciel Work Phone: [facility] 08-03-2022 07:45-0500 SaO2% (BldA) [Mass fraction] 94 % Dr. Keron Maciel Work Phone: [facility] 08-03-2022 07:45-0500 Systolic blood pressure 154 mm[Hg] Dr. Keron Maciel Work Phone: [facility] 02-25-2022 09:02-0400 Body height 162.[address] Keron Maciel Work Phone: [facility] Work Phone: 02-25-2022 09:02-0400 Body mass index (BMI) [Ratio] 41 kg/m2 Dr. Keron Maciel Work Phone: [facility] Work Phone: 02-25-2022 09:02-0400 Body weight 108.[address] Keron Maciel Work Phone: [facility] Work Phone: 02-25-2022 09:02-0400 Diastolic blood pressure 79 mm[Hg] Dr. Keron Maciel Work Phone: [facility] Work Phone: 02-25-2022 09:02-0400 Heart rate 78 /min Dr. Keron Maciel Work Phone: [facility] Work Phone: 02-25-2022 09:02-0400 Respiratory rate 18 /min Dr. Keron Maciel Work Phone: [facility] Work Phone: 02-25-2022 09:02-0400 SaO2% (BldA) [Mass fraction] 98 % Dr. Keron Maciel Work Phone: [facility] Work Phone: 02-25-2022 09:02-0400 Systolic blood pressure 137 mm[Hg] Dr. Keron Maciel Work Phone: [facility] Work Phone: 02-14-2022 13:10-0400 Body height 162.[address] Keron Maciel Work Phone: [facility] Work Phone: 02-14-2022 13:10-0400 Body mass index (BMI) [Ratio] 41.1 kg/m2 Dr. Keron Maciel Work Phone: [facility] Work Phone: 02-14-2022 13:10-0400 Body temperature 98.2 [degF] Dr. Keron Maciel Work Phone: [facility] Work Phone: 02-14-2022 13:10-0400 Body weight 108.[address] Keron Maciel Work Phone: [facility] Work Phone: 02-14-2022 13:10-0400 Diastolic blood pressure 76 mm[Hg] Dr. Keron Macile Work Phone: [facility] Work Phone: 02-14-2022 13:10-0400 Heart rate 75 /min Dr. Keron Maciel Work Phone: [facility] Work Phone: 02-14-2022 13:10-0400 Respiratory rate 22 /min Dr. Keron Maciel Work Phone: [facility] Work Phone: 02-14-2022 13:10-0400 SaO2% (BldA) [Mass fraction] 98 % Dr. Keron Maciel Work Phone: [facility] Work Phone: 02-14-2022 13:10-0400 Systolic blood pressure 126 mm[Hg] Dr. Keron Maciel Work Phone: [facility] Work Phone: 02-08-2022 13:22-0400 Body temperature 98.2 [degF] Dr. Keron Maciel Work Phone: [facility] Work Phone: 02-08-2022 13:22-0400 Diastolic blood pressure 54 mm[Hg] Dr. Keron Maciel Work Phone: [facility] Work Phone: 02-08-2022 13:22-0400 Heart rate 86 /min Dr. Keron Maciel Work Phone: [facility] Work Phone: 02-08-2022 13:22-0400 Respiratory rate 14 /min Dr. Keron Maciel Work Phone: [facility] Work Phone: 02-08-2022 13:22-0400 SaO2% (BldA) [Mass fraction] 95 % Dr. Keron Maciel Work Phone: [facility] Work Phone: 02-08-2022 13:22-0400 Systolic blood pressure 108 mm[Hg] Dr. Keron Maciel Work Phone: [facility] Work Phone: 02-01-2022 16:28-0400 Diastolic blood pressure 78 mm[Hg] Dr. Keron Maciel Work Phone: [facility] Work Phone: 02-01-2022 16:28-0400 Heart rate 78 /min Dr. Keron Maciel Work Phone: [facility] Work Phone: 02-01-2022 16:28-0400 Respiratory rate 16 /min Dr. Keron Maciel Work Phone: [facility] Work Phone: 02-01-2022 16:28-0400 SaO2% (BldA) [Mass fraction] 98 % Dr. Keron Maciel Work Phone: [facility] Work Phone: 02-01-2022 16:28-0400 Systolic blood pressure 136 mm[Hg] Dr. Keron Maciel Work Phone: [facility] Work Phone: 02-01-2022 13:24-0400 Body height 162.[address] Keron Maciel Work Phone: [facility] Work Phone: 02-01-2022 13:24-0400 Body mass index (BMI) [Ratio] 40.8 kg/m2 Dr. Keron Maciel Work Phone: [facility] Work Phone: 02-01-2022 13:24-0400 Body temperature 97.8 [degF] Dr. Keron Maciel Work Phone: [facility] Work Phone: 02-01-2022 13:24-0400 Body weight 107.[address] Keron Maciel Work Phone: [facility] Work Phone: 10-29-2021 07:13-0400 Body height 162.[address] Keron Maciel Work Phone: [facility] Work Phone: 10-29-2021 07:13-0400 Body weight 108.[address] Keron Maciel Work Phone: [facility] Work Phone: 10-28-2021 08:17-0400 Body mass index (BMI) [Ratio] 41.1 kg/m2 Dr. Keron Maciel Work Phone: [facility] Work Phone: 10-26-2021 08:19-0400 Body weight 108.[address] Keron Maciel Work Phone: [facility] Work Phone: 10-26-2021 08:19-0400 Diastolic blood pressure 72 mm[Hg] Dr. Keron Maciel Work Phone: [facility] Work Phone: 10-26-2021 08:19-0400 Heart rate 77 /min Dr. Keron Maciel Work Phone: [facility] Work Phone: 10-26-2021 08:19-0400 Respiratory rate 22 /min Dr. Keron Maciel Work Phone: [facility] Work Phone: 10-26-2021 08:19-0400 SaO2% (BldA) [Mass fraction] 96 % Dr. Keron Maciel Work Phone: [facility] Work Phone: 10-26-2021 08:19-0400 Systolic blood pressure 108 mm[Hg] Dr. Keron Maciel Work Phone: [facility] Work Phone: 10-26-2021 08:19-0400 Body weight 108.[address] Keron Maciel Work Phone: [facility] Work Phone: 10-26-2021 08:19-0400 Diastolic blood pressure 72 mm[Hg] Dr. Keron Maciel Work Phone: [facility] Work Phone: 10-26-2021 08:19-0400 Heart rate 77 /min Dr. Keron Maciel Work Phone: [facility] Work Phone: 10-26-2021 08:19-0400 Respiratory rate 22 /min Dr. Keron Maciel Work Phone: [facility] Work Phone: 10-26-2021 08:19-0400 SaO2% (BldA) [Mass fraction] 96 % Dr. Keron Maciel Work Phone: [facility] Work Phone: 10-26-2021 08:19-0400 Systolic blood pressure 108 mm[Hg] Dr. Keron Maciel Work Phone: [facility] Work Phone: 10-13-2021 13:03-0400 Body mass index (BMI) [Ratio] 40.8 kg/m2 Dr. Keron Maciel Work Phone: [facility] Work Phone: 10-13-2021 13:03-0400 Body temperature 96.9 [degF] Dr. Keron Maciel Work Phone: [facility] Work Phone: 10-13-2021 13:03-0400 Body weight 108.[address] Keron Maciel Work Phone: [facility] Work Phone: 10-13-2021 13:03-0400 Diastolic blood pressure 70 mm[Hg] Dr. Keron Maciel Work Phone: [facility] Work Phone: 10-13-2021 13:03-0400 Heart rate 95 /min Dr. Keron Maciel Work Phone: [facility] Work Phone: 10-13-2021 13:03-0400 Respiratory rate 16 /min Dr. Keron Maciel Work Phone: [facility] Work Phone: 10-13-2021 13:03-0400 SaO2% (BldA) [Mass fraction] 95 % Dr. Keron Maciel Work Phone: [facility] Work Phone: 10-13-2021 13:03-0400 Systolic blood pressure 130 mm[Hg] Dr. Keron Maciel Work Phone: [facility] Work Phone: 10-13-2021 13:03-0400 Body height 162.[address] Keron Maciel Work Phone: [facility] Work Phone: 10-13-2021 13:03-0400 Body mass index (BMI) [Ratio] 40.8 kg/m2 Dr. Keron Maciel Work Phone: [facility] Work Phone: 10-13-2021 13:03-0400 Body temperature 96.9 [degF] Dr. Keron Maciel Work Phone: [facility] Work Phone: 10-13-2021 13:03-0400 Body weight 108.[address] Keron Maciel Work Phone: [facility] Work Phone: 10-13-2021 13:03-0400 Diastolic blood pressure 70 mm[Hg] Dr. Keron Maciel Work Phone: [facility] Work Phone: 10-13-2021 13:03-0400 Heart rate 95 /min Dr. Keron Maciel Work Phone: [facility] Work Phone: 10-13-2021 13:03-0400 Respiratory rate 16 /min Dr. Keron Maciel Work Phone: [facility] Work Phone: 10-13-2021 13:03-0400 SaO2% (BldA) [Mass fraction] 95 % Dr. Keron Maciel Work Phone: [facility] Work Phone: 10-13-2021 13:03-0400 Systolic blood pressure 130 mm[Hg] Dr. Keron Maciel Work Phone: [facility] Work Phone: 10-11-2021 13:12-0400 Body mass index (BMI) [Ratio] 40.8 kg/m2 Dr. Keron Maciel Work Phone: [facility] Work Phone: 10-11-2021 13:12-0400 Body weight 108.[address] Keron Maciel Work Phone: [facility] Work Phone: 10-11-2021 13:12-0400 Diastolic blood pressure 68 mm[Hg] Dr. Keron Maciel Work Phone: [facility] Work Phone: 10-11-2021 13:12-0400 Heart rate 80 /min Dr. Keron Maciel Work Phone: [facility] Work Phone: 10-11-2021 13:12-0400 Respiratory rate 17 /min Dr. Keron Maciel Work Phone: [facility] Work Phone: 10-11-2021 13:12-0400 SaO2% (BldA) [Mass fraction] 96 % Dr. Keron Maciel Work Phone: [facility] Work Phone: 10-11-2021 13:12-0400 Systolic blood pressure 114 mm[Hg] Dr. Keron Maciel Work Phone: [facility] Work Phone: 10-11-2021 13:12-0400 Body mass index (BMI) [Ratio] 40.8 kg/m2 Dr. Keron Maciel Work Phone: [facility] Work Phone: 10-11-2021 13:12-0400 Body weight 108.[address] Keron Maciel Work Phone: [facility] Work Phone: 10-11-2021 13:12-0400 Diastolic blood pressure 68 mm[Hg] Dr. Keron Maciel Work Phone: [facility] Work Phone: 10-11-2021 13:12-0400 Heart rate 80 /min Dr. Keron Maciel Work Phone: [facility] Work Phone: 10-11-2021 13:12-0400 Respiratory rate 17 /min Dr. Keron Maciel Work Phone: [facility] Work Phone: 10-11-2021 13:12-0400 SaO2% (BldA) [Mass fraction] 96 % Dr. Keron Maciel Work Phone: [facility] Work Phone: 10-11-2021 13:12-0400 Systolic blood pressure 114 mm[Hg] Dr. Keron Maciel Work Phone: [facility] Work Phone: 09-07-2021 13:29-0400 Body mass index (BMI) [Ratio] 40.6 kg/m2 Dr. Keron Maciel Work Phone: [facility] Work Phone: 09-07-2021 13:29-0400 Body temperature 96.3 [degF] Dr. Keron Maciel Work Phone: [facility] Work Phone: 09-07-2021 13:29-0400 Body weight 107.[address] Keron Maciel Work Phone: [facility] Work Phone: 09-07-2021 13:29-0400 Diastolic blood pressure 80 mm[Hg] Dr. Keron Maciel Work Phone: [facility] Work Phone: 09-07-2021 13:29-0400 Heart rate 87 /min Dr. Keron Maciel Work Phone: [facility] Work Phone: 09-07-2021 13:29-0400 Respiratory rate 20 /min Dr. Keron Maciel Work Phone: [facility] Work Phone: 09-07-2021 13:29-0400 SaO2% (BldA) [Mass fraction] 97 % Dr. Keron Maciel Work Phone: [facility] Work Phone: 09-07-2021 13:29-0400 Systolic blood pressure 140 mm[Hg] Dr. Keron Maciel Work Phone: [facility] Work Phone: 08-05-2021 05:23-0500 Body temperature 97.2 [degF] Dr. Keron Maciel Work Phone: [facility] Work Phone: 08-05-2021 05:23-0500 Body weight 106.[address] Keron Maciel Work Phone: [facility] Work Phone: 08-05-2021 05:23-0500 Diastolic blood pressure 81 mm[Hg] Dr. Keron Maciel Work Phone: [facility] Work Phone: 08-05-2021 05:23-0500 Heart rate 86 /min Dr. Keron Maciel Work Phone: [facility] Work Phone: 08-05-2021 05:23-0500 Respiratory rate 18 /min Dr. Keron Maciel Work Phone: [facility] Work Phone: 08-05-2021 05:23-0500 SaO2% (BldA) [Mass fraction] 97 % Dr. Keron Maciel Work Phone: [facility] Work Phone: 08-05-2021 05:23-0500 Systolic blood pressure 145 mm[Hg] Dr. Keron Maciel Work Phone: [facility] Work Phone: 07-13-2021 09:20-0500 Diastolic blood pressure 68 mm[Hg] Dr. Keron Maciel Work Phone: [facility] Work Phone: 07-13-2021 09:20-0500 Heart rate 87 /min Dr. Keron Maciel Work Phone: [facility] Work Phone: 07-13-2021 09:20-0500 SaO2% (BldA) [Mass fraction] 98 % Dr. Keron Maciel Work Phone: [facility] Work Phone: 07-13-2021 09:20-0500 Systolic blood pressure 120 mm[Hg] Dr. Keron Maciel Work Phone: [facility] Work Phone: 01-18-2021 13:35-0400 Body mass index (BMI) [Ratio] 40.6 kg/m2 Dr. Keron Maciel Work Phone: [facility] Work Phone: 01-18-2021 13:35-0400 Body mass index (BMI) [Ratio] 40.6 kg/m2 Dr. Keron Maciel Work Phone: [facility] Work Phone: 07-22-2020 09:45-0500 Body mass index (BMI) [Ratio] 40.8 kg/m2 Dr. Keron Maciel Work Phone: [facility] Work Phone: 05-09-2017 08:43-0500 BMI (Body Mass Index) 41.78 kg/m2 Saurabh Benites MD [facility] Work Phone: 05-09-2017 08:43-0500 Body Temperature 97.8 [degF] Saurabh Benites MD [facility] Work Phone: 05-09-2017 08:43-0500 BP Diastolic 83 mm[Hg] Saurabh Benites MD [facility] Work Phone: 05-09-2017 08:43-0500 BP Systolic 148 mm[Hg] Saurabh Benites MD [facility] Work Phone: 05-09-2017 08:43-0500 Height 160.02 cm Saurabh Benites MD [facility] Work Phone: 05-09-2017 08:43-0500 Pulse (Heart Rate) 74 /min Saurabh Benites MD [facility] Work Phone: 05-09-2017 08:43-0500 Respiratory Rate 20 /min Saurabh Benites MD [facility] Work Phone: 05-09-2017 08:43-0500 Weight 107 kg Saurabh Benites MD [facility] Work Phone: 05-31-2016 10:22-0500 Body Temperature 97.34 [degF] Saurabh Benites MD [facility] Work Phone: 05-31-2016 10:22-0500 BSA (Body Surface Area) 2.06 m2 Saurabh Benites MD [facility] Work Phone: 05-31-2016 10:22-0500 Height 160.02 cm Saurabh Benites MD [facility] Work Phone: 05-31-2016 10:22-0500 Weight 105.45 kg Saurabh Benites MD [facility] Work Phone: 03-08-2016 14:31-0400 Pulse Oximetry 97 % Saurabh Benites MD [facility] Work Phone: Encounters Encounter Date Encounter Type Care Provider Facility Start: 01-06-2025 End: 01-06-2025 ambulatory Keron Maciel Facility:[facility] Start: 01-06-2025 End: 01-06-2025 Dr. Keron Maciel MD -[facility] Work Phone: Start: 01-02-2025 Dr. Patti Steinberg MD -[facility] Start: 01-02-2025 ambulatory Patti Steinberg Facility:[facility] Start: 12-31-2024 End: 12-31-2024 Dr. Keron Maciel MD Work Phone: -Emergency Department Work Phone: Start: 12-31-2024 End: 12-31-2024 Emergency department patient visit Dr. Keron Maciel MD Work Phone: -Emergency Department Start: 12-30-2024 End: 12-30-2024 Dr. Keron Maciel MD -[facility] Work Phone: Start: 12-30-2024 End: 12-30-[address] Keron Maciel MD Work Phone: -[facility] Start: 12-23-2024 End: 12-23-2024 Patient encounter procedure Zhen Simons LEGAL CONSULTANT-C -[facility] Work Phone: Start: 12-23-2024 End: 12-23-2024 Zhen Simons LEGAL CONSULTANT-C -[facility] Work Phone: Start: 12-23-2024 End: 12-23-[address] Keron Maciel MD Work Phone: -[facility] Start: 12-21-2024 End: 12-21-2024 Dr. Derick Sorenson DO -[facility] Work Phone: Start: 12-21-2024 End: 12-21-2024 Emergency department patient visit Dr. Keron Maciel MD Work Phone: -Emergency Department Work Phone: Start: 12-13-2024 End: 12-13-2024 Patient encounter procedure Barbie Nova Work Phone: Podiatry Comment on above: Onychomycosis (Prima ry Dx); Pain in toe of left foot; Diabetic polyneuropathy associated with type 2 diabetes mellitus (HCC); Pain in toe of right foot Start: 12-13-2024 End: 12-13-2024 ambulatory BARBIE NOVA Facility:[facility] Start: 12-09-2024 End: 12-09-[address] Keron Maciel MD Work Phone: -Radiology [facility] Start: 12-09-2024 End: 12-09-[address] Keron Maciel MD -Radiology [facility] Work Phone: Start: 12-09-2024 End: 12-09-2024 Dr. Keron Maciel MD -Radiology [facility] Work Phone: Start: 12-09-2024 End: 12-09-[address] Keron Maciel MD -[facility] Work Phone: Start: 12-09-2024 End: 12-09-2024 Dr. Keron Maciel MD -[facility] Work Phone: Start: 12-09-2024 End: 12-09-[address] Keron Maciel MD Work Phone: [facility] Work Phone: Start: 12-09-2024 End: 12-09-2024 ambulatory Keron Maciel Facility:[facility] Start: 11-25-2024 End: 11-25-[address] Keron Maciel MD Work Phone: [facility] Work Phone: Start: 11-25-2024 End: 11-25-[address] Keron Maciel MD -[facility] [place] Work Phone: Start: 11-25-2024 End: 11-25-2024 Dr. Keron Maciel MD -Laboratory [place] Work Phone: Start: 11-25-2024 End: 11-25-[address] Keron Maciel MD -[facility] Work Phone: Start: 11-25-2024 End: 11-25-2024 Dr. Keron Maciel MD -[facility] Work Phone: Start: 11-25-2024 End: 11-25-[address] Keron Maciel MD Work Phone: [facility] Work Phone: Start: 11-25-2024 End: 11-25-2024 ambulatory Keron Maciel Facility:[facility] Start: 11-19-2024 End: 11-20-2024 [facility] Work Phone: Start: 11-19-2024 End: 11-20-2024 Emergency department patient visit Helio Corrales -Emergency Department Work Phone: Start: 09-06-2024 End: 09-06-2024 ambulatory BARBIE NOVA Facility:[facility] Start: 09-06-2024 End: 09-06-2024 Patient encounter procedure Barbie Nova Work Phone: Podiatry Comment on above: Onychomycosis (Prima ry Dx); Pain in toe of left foot; Pain in toe of right foot; Diabetic polyneuropathy associated with type 2 diabetes mellitus (HCC); Venous insufficiency Start: 08-01-2024 End: 08-01-[address] Rich Padgett MD -[facility] Work Phone: Start: 08-01-2024 End: 08-01-2024 ambulatory Keron Maciel Facility:[facility] Start: 07-25-2024 End: 07-25-[address] Keron Maciel MD -[facility] Work Phone: Start: 07-25-2024 End: 07-25-2024 ambulatory Keron Maciel Facility:[facility] Start: 06-24-2024 End: 06-24-2024 ambulatory Keron Maciel Facility:[facility] Start: 06-24-2024 End: 06-24-2024 ambulatory Joan Serna Facility:[facility] Start: 06-15-2024 ambulatory David Ashton Facility:[facility] Start: 06-15-2024 End: 06-16-2024 ambulatory Amalia Moncada Facility:[facility] Start: 06-06-2024 End: 06-06-2024 ambulatory BARBIE NOVA Facility:[facility] Start: 06-06-2024 End: 06-06-2024 Patient encounter procedure Barbie Nova Work Phone: Podiatry Comment on above: Onychomycosis (Prima ry Dx); Pain in toe of left foot; Pain in toe of right foot; Diabetic polyneuropathy associated with type 2 diabetes mellitus ([facility]) Start: 05-20-2024 End: 05-20-2024 ambulatory [facility] Start: 05-09-2024 End: 05-09-2024 ambulatory [facility] Facility:[facility] Start: 04-22-2024 End: 04-22-2024 ambulatory [facility] Facility:[facility] Start: 03-28-2024 End: 03-28-2024 ambulatory [facility] Facility:[facility] Start: 03-27-2024 End: 03-27-2024 ambulatory Keron Janell Facility:[facility] Start: 03-14-2024 End: 03-14-2024 ambulatory Keron Janell Facility:[facility] Start: 03-07-2024 End: 03-07-2024 ambulatory Keron Janell Facility:[facility] Start: 02-29-2024 End: 02-29-2024 ambulatory BARBIE NOVA Facility:[facility] Start: 02-29-2024 End: 02-29-2024 Patient encounter procedure Barbie Nova Work Phone: Podiatry Comment on above: Onychomycosis (Prima ry Dx); Pain in toe of left foot; Pain in toe of right foot; Diabetic polyneuropathy associated with type 2 diabetes mellitus ([facility]) Start: 02-26-2024 End: 02-26-2024 [facility] Start: 01-18-2024 End: 01-18-2024 ambulatory [facility] Start: 01-10-2024 End: 01-10-2024 ambulatory Geo Saeed Facility:[facility] Start: 11-16-2023 End: 11-16-2023 Patient encounter procedure Barbie Nova Work Phone: Podiatry Comment on above: Onychomycosis (Prima ry Dx); Pain in toe of left foot; Pain in toe of right foot; Diabetic polyneuropathy associated with type 2 diabetes mellitus (HCC) Start: 09-22-2023 End: 09-22-[address] Keron Maciel Work Phone: [facility] Work Phone: Start: 09-22-2023 End: 09-22-[address] Keron Maciel Work Phone: [facility]-Laboratory Work Phone: Start: 09-14-2023 End: 09-14-[address] Keron Maciel Work Phone: [facility] [place] Work Phone: Start: 08-10-2023 End: 08-10-[address] Keron Maciel Work Phone: [facility] Work Phone: Start: 07-31-2023 End: 07-31-2023 Patient encounter procedure Barbie Nova Work Phone: Podiatry Comment on above: Onychomycosis (Prima ry Dx); Pain in toe of left foot; Pain in toe of right foot; Xerosis cutis; Diabetic polyneuropathy associated with diabetes mellitus due to underlying condition (HCC); Callus of heel Start: 07-31-2023 End: 07-31-2023 Subsequent hospital visit by physician Xr [facility] Work Phone: Radiology Start: 07-27-2023 End: 07-27-[address] Keron Maciel Work Phone: [facility] Neurology Work Phone: Start: 07-24-2023 End: 07-24-[address] Keron Maciel Work Phone: [facility] [place] Work Phone: Start: 07-16-2023 End: 07-16-2023 Emergency department patient visit Dr. Keron Maciel Work Phone: [facility]-Emergency Department Work Phone: Start: 12-09-2022 End: 12-09-[address] Keron Maciel Work Phone: [facility] Work Phone: Start: 12-09-2022 End: 12-09-[address] Keron Maciel Work Phone: [facility]-Physical Therapy Start: 10-18-2022 End: 10-18-[address] Keron Maciel Work Phone: [facility] Endocrinology Start: 10-10-2022 End: 10-10-[address] Keron Maciel Work Phone: [facility] Neurology Start: 10-05-2022 End: 10-05-[address] Keron Maciel Work Phone: [facility]-Radiology, [facility] Start: 09-28-2022 End: 09-28-[address] Keron Maciel Work Phone: [facility] Work Phone: Start: 09-28-2022 End: 09-28-[address] Keron Maciel Work Phone: [facility]-Laboratory Start: 09-28-2022 End: 09-28-[address] Keron Maciel Work Phone: [facility] [place] Start: 09-08-2022 End: 09-08-[address] Keron Maciel Work Phone: [facility] Start: 09-07-2022 End: 09-07-[address] Keron Maciel Work Phone: [facility] Work Phone: Start: 09-07-2022 End: 09-07-[address] Keron Maciel Work Phone: [facility]-Radiology, [facility] Start: 08-03-2022 End: 08-03-[address] Keron Maciel Work Phone: [facility]-Pulmonary Medicine [facility] Start: 03-03-2022 End: 03-03-[address] Keron Maciel Work Phone: [facility] Work Phone: Start: 03-03-2022 End: 03-03-[address] [facility] Start: 02-25-2022 End: 02-25-[address] Keron Maciel Work Phone: [facility] Start: 02-17-2022 Non-patient / Non-visit Dr. Madeleine Maciel Work Phone: [facility] Internal [facility] Start: 02-16-2022 End: 02-16-[address] Keron Maciel Work Phone: [facility] Work Phone: Start: 02-16-2022 End: 02-16-[address] [facility] Start: 02-14-2022 End: 02-14-[address] Keron Maciel Work Phone: [facility] Internal Medicine Start: 02-08-2022 End: 02-08-[address] Keron Maciel Work Phone: [facility] Internal Medicine Start: 02-01-2022 End: 02-01-2022 Emergency department patient visit Dr. Keron Maciel Work Phone: [facility]-Emergency Department Start: 10-29-2021 End: 10-29-2021 Admission to same day surgery center Dr. Keron Maciel Work Phone: [facility]-Chief Telephone Operator/Special Procedures Start: 10-26-2021 End: 10-26-[address] Keron Maciel Work Phone: [facility] Start: 10-13-2021 End: 10-13-[address] Keron Maciel Work Phone: [facility]-Laboratory, [facility] Start: 10-13-2021 End: 10-13-[address] Keron Maciel Work Phone: [facility] Internal Medicine Start: 10-11-2021 End: 10-11-[address] Keron Maciel Work Phone: [facility] Neurology Start: 09-07-2021 End: 09-07-[address] Keron Maciel Work Phone: [facility] Endocrinology Start: 08-05-2021 End: 08-05-[address] Keron Maciel Work Phone: [facility]-Pulmonary Medicine [facility] Start: 07-13-2021 End: 07-13-[address] Keron Maciel Work Phone: [facility] Neurology Start: 06-22-2021 End: 06-22-[address] Keron Maciel Work Phone: [facility]-Laboratory Procedures Date Procedure Procedure Detail Performing Clinician Start: 12-31-2024 CT of head without contrast Dr. Keron Maciel MD Work Phone: Start: 12-21-2024 CT of chest without contrast Dr. Keron Maciel MD Work Phone: Start: 12-21-2024 X-ray of chest, PA a nd lateral views Dr. Keron Maciel MD Work Phone: Start: 12-21-2024 Blood count smear mc rscp w/mnl difrntl wbc count Dr. Keron Maciel MD Work Phone: Start: 12-21-2024 Calculation of international normalized ratio Dr. Keron Maciel MD Work Phone: Start: 12-21-[address] Keron Maciel MD Work Phone: Start: 12-21-2024 Mean corpuscular hem oglobin concentration determination Dr. Keron Maciel MD Work Phone: Start: 12-21-2024 Nucleated red blood cell count procedure Dr. Keron Maciel MD Work Phone: Start: 12-21-2024 Platelet mean volume determination Dr. Keron Maciel MD Work Phone: Start: 12-09-2024 X-ray of chest, PA a nd lateral views Dr. Keron Maciel MD Work Phone: Start: 11-25-2024 X-ray of chest, PA a nd lateral views Dr. Keron Maciel MD Work Phone: Start: 11-25-2024 Blood count smear mc rscp w/mnl difrntl wbc count Dr. Keron Maciel MD Work Phone: Start: 11-25-2024 Mean corpuscular hem oglobin concentration determination Dr. Keron Maciel MD Work Phone: Start: 11-25-2024 Nucleated red blood cell count procedure Dr. Keron Maciel MD Work Phone: Start: 11-25-2024 Platelet mean volume determination Dr. Keron Maciel MD Work Phone: Start: 11-19-2024 Urine microscopy: red cells Dr. Keron Maciel MD Work Phone: Start: 11-19-2024 Urnls dip stick/tabl et reagent auto microscopy Dr. Keron Maciel MD Work Phone: Start: 11-19-2024 X-ray of chest, PA a nd lateral views Dr. Keron Maciel MD Work Phone: Start: 11-19-2024 Blood count smear mc rscp w/mnl difrntl wbc count Dr. Keron Maciel MD Work Phone: Start: 11-19-[address] Keron Maciel MD Work Phone: Start: 11-19-2024 Mean corpuscular hem oglobin concentration determination Dr. Keron Maciel MD Work Phone: Start: 11-19-2024 Nucleated red blood cell count procedure Dr. Keron Maciel MD Work Phone: Start: 11-19-2024 Platelet mean volume determination Dr. Keron Maciel MD Work Phone: Start: 11-19-2024 SARS-CoV-2, Influenz a & RSV (PCR) Dr. Keron Mcaiel MD Work Phone: Start: 11-19-[address] Keron Maciel MD Work Phone: Start: 11-19-2024 Dr. Keron Maciel MD Work Phone: Start: 07-16-2023 Plain chest X-ray Dr. John Maciel Work Phone: Start: 07-16-2023 SARS-CoV-2, Influenz a & RSV (PCR) Dr. Keron Maciel Work Phone: Start: 10-05-2022 X-ray of cervical spine Dr. Keron Maciel Work Phone: Start: 09-07-2022 Plain X-ray of shoulder Dr. Keron Maciel Work Phone: Start: 02-01-2022 CT of head without contrast Dr. Keron Maciel Work Phone: Start: 10-26-2021 Plain chest X-ray Dr. John Maciel Work Phone: Start: 01-20-2017 End: 01-20-2017 *BMP Audelia Espinoza PA-C Work Phone: Start: 01-20-2017 End: 01-20-2017 *CBC with Differential Audelia Espinoza PA-C Work Phone: Start: 01-20-2017 End: 01-20-2017 Follow Up Appt Other Audelia Espinoza PA-C Work Phone: Start: 01-20-2017 End: 01-20-2017 Natriuretic peptide B [Mass/volume] in Blood Audelia Espinoza PA-C Work Phone: Start: 09-06-2016 End: 09-06-2016 [employer] Audelia Espinoza PA-C Work Phone: Start: 09-06-2016 End: 09-06-2016 Follow Up Appt 6 months Audelia Espinoza PA-C Work Phone: Start: 09-06-2016 End: 09-06-2016 Follow Up Appt Other Audelia Espinoza PA-C Work Phone: Start: 08-22-2016 End: 09-07-2016 DMB Lela Sherman [facility] Work Phone: Start: 08-22-2016 End: 09-07-2016 Echo tthrc r-t 2d w/wom-mode compl spec&colr d Lela Sherman [facility]IC [facility] Work Phone: Start: 08-22-2016 End: 09-07-2016 Follow Up Appt 3 months Lela fonseca PSYCHIATRIC CNS Work Phone: Start: 08-22-2016 End: 08-23-2016 Natriuretic peptide B [Mass/volume] in Blood Lela Sherman PSYCHIATRIC CNS Work Phone: Start: 06-08-2016 End: 08-18-2016 *MISC - Miscellaneous Lab Test #1 Lela Sherman CNP Work Phone: Start: 05-20-2016 End: 05-20-2016 Follow [...] David Ashton MD Start: 03-08-2016 End: 03-08-2016 MMLibia Ashton MD Start: 03-08-2016 End: 03-09-2016 Natriuretic peptide B [Mass/volume] in Blood David Ashton MD Start: 02-08-2016 End: 04-29-2016 DMB Americo Nazario DO Work Phone: Start: 02-08-2016 End: 04-29-2016 Follow Up Appt 6 weeks Americo Nazario DO Work Phone: Start: 02-08-2016 End: 03-18-2016 Pulmonary Function Test - complete Americo Nazario DO Work Phone: Start: 10-15-2015 End: 10-19-2015 *Hepatic Function Panel Libia Liu Start: 10-15-2015 End: 10-15-2015 Follow Up Appt 6 months Libia Liu Start: 10-15-2015 End: 10-19-2015 Lipid 1996 panel - Serum or Plasma David Ashton MD Start: 10-15-2015 End: 10-15-2015 MMLibia Ashton MD Start: 08-27-2015 End: 08-27-2015 Follow Up Appt 6 weeks Audelia Espinoza PA-C Work Phone: Start: 08-27-2015 End: 08-27-2015 MMLibia Espinoza PA-C Work Phone: Start: 08-06-2015 End: 08-06-2015 *BMP David Ashton MD Start: 08-06-2015 End: 08-06-2015 CBC W Auto Differential panel - Blood David Ashton MD Start: 08-06-2015 End: 08-06-2015 Follow up Appt 3 weeks David Ashton MD Start: 08-06-2015 End: 08-06-2015 CAROLINE Ashton MD Start: 08-06-2015 End: 08-06-2015 Natriuretic peptide B [Mass/volume] in Blood David Ashton MD Start: 07-16-2015 End: 08-27-2015 Cardiac Rehab Audelia Espinoza PA-C Work Phone: Start: 07-16-2015 End: 07-16-2015 Ecg routine ecg w/least 12 lds w/i&r Audelia Espinoza PA-C Work Phone: Start: 07-16-2015 End: 07-16-2015 Follow Up Appt 6 weeks Audelia Espinoza PA-C Work Phone: Start: 07-16-2015 End: 07-16-2015 MMLibia Espinoza PA-C Work Phone: Start: 07-01-2015 History of placement of stent for coronary artery disease History of coronary artery stent placement Zhen Simons [employer] Comment on above: RUDDY to Prox-Mid LAD w/ 3.5 x 20 Promus Stent done 07/01/15 Start: 06-16-2015 End: 06-16-2015 Ecg routine ecg w/least 12 lds w/i&r David Ashton MD Start: 06-16-2015 End: 06-25-2015 Echocardiography David Ashton MD Start: 06-16-2015 End: 07-16-2015 Follow Up Appt 6 months Libia Liu Start: 06-16-2015 End: 07-16-2015 CAROLINE Ashton MD Start: 06-16-2015 End: 06-17-2015 Natriuretic peptide B [Mass/volume] in Blood David Ashton MD Start: 12-04-2014 End: 12-04-2014 [employer] Audelia Espinoza PA-C Work Phone: Start: 12-04-2014 End: 12-05-2014 Documentation of current medications Audelia Espinoza PA-C Work Phone: Start: 12-04-2014 End: 12-04-2014 Ecg routine ecg w/least 12 lds w/i&r Audelia Espinoza PA-C Work Phone: Start: 12-04-2014 End: 12-04-2014 Follow Up Appt 6 months Audleia Espinoza PA-C Work Phone: Start: 12-04-2014 End: 06-25-2015 [facility] Work Phone: Start: 05-29-2014 End: 06-30-2014 24 hour holter monitor David Ashton MD Start: 05-29-2014 End: 05-29-2014 Follow Up Appt 6 months Libia Liu Start: 05-29-2014 End: 05-29-2014 [facility] David Ashton MD Start: 12-31-2013 End: 12-31-2013 SIMI Espinoza PA-C Work Phone: Start: 12-31-2013 End: 12-31-2013 Follow Up Appt 6 months Audelia Espinoza PA-C Work Phone: Start: 06-25-2013 End: 06-25-2013 Ecg routine ecg w/least 12 lds w/i&r David Ashton MD Start: 06-25-2013 End: 06-25-2013 Follow Up Appt 6 months Libia Liu Start: 06-25-2013 End: 06-25-2013 MMM David Ashton MD Start: 05-19-2013 End: 06-21-2013 *Hepatic Function Panel Libia Liu Start: 05-19-2013 End: 06-21-2013 Lipid Dorcas panel - Serum or Plasma David Ashton MD Start: 11-17-2012 End: 12-05-2012 *Hepatic Function Panel Libia Liu Start: 11-17-2012 End: 12-05-2012 Lipid Dorcas panel - Serum or Plasma David Ashton MD Start: 06-21-2012 End: 06-21-2012 Follow Up Appt 1 year David Ashton MD Start: 06-23-2011 End: 06-23-2011 Follow Up Appt 1 year Estrella August RN Plan of Treatment Date Care Activity Detail Author Start: 11-11-2033 Urine microalbumin profile DTaP,Tdap,Td Vaccine (4 - Td or Tdap) [facility] Start: 02-02-2032 Urine microalbumin profile DTaP,Tdap,Td Vaccine (3 - Td or Tdap) [facility] Start: 03-21-2025 End: 03-21-2025 Patient encounter procedure 03/21/2025 1:40 PM EDT Office Visit Podiatry [address] [place] [address] Barbie Nova [address] [place] [address] 3 month follow up nail care Podiatry Comment on above: 3 month follow up nail care Start: 02-17-2025 Influenza vaccination Influenza Vaccine (Season Ended) [facility] Start: 12-31-[address] [facility] Start: 12-23-2024 Evaluation of diagnostic study results [facility] Start: 12-21-[address] [facility] Start: 12-21-[address] [facility] Start: 12-06-2024 End: 12-06-2024 Patient encounter procedure 12/06/2024 3:40 PM EDT Office Visit Podiatry [address] [place] [address] Barbie Nova [address] [place] [address] 3 mo f/u Podiatry Comment on above: 3 mo f/u Start: 11-25-2024 Basic metabolic 2008 panel with ionized calcium - Serum or Plasma [facility] Start: 11-25-2024 CBC W Auto Differential panel - Blood [facility] Start: 11-25-2024 Natriuretic peptide.B prohormone N-Terminal [Mass/volume] in Serum or Plasma [facility] Start: 11-25-2024 Evaluation of diagnostic study results [facility] Start: 11-20-2024 End: 11-20-[address] [facility] Start: 11-19-2024 Bacteria identified in Urine by Culture Urine Culture [facility] Start: 09-06-2024 End: 09-06-2024 Patient encounter procedure 09/06/2024 1:20 PM EDT Office Visit Podiatry [address] [place] [address] Barbie Nova [address] [address] 3 month follow up nail care Podiatry Comment on above: 3 month follow up nail care Start: 06-19-2024 Advance Directive Discussion Advance Directive Discussion [facility] Start: 06-19-2024 Medicare Advantage Annual Wellness Visit Medicare Advantage Annual Wellness Visit [facility] Start: 02-23-2024 End: 02-23-2024 Patient encounter procedure 02/23/2024 2:00 PM EDT Office Visit Podiatry [address] [place] [address] Barbie Nova [address] [place] [address] 3 month follow up nail care Podiatry Comment on above: 3 month follow up nail care Start: 02-18-2024 Covid-19 Vaccine ( season) Covid-19 Vaccine () [facility] Start: 02-18-2024 Covid-19 Vaccine () Covid-19 Vaccine () [facility] Start: 02-18-2024 Influenza vaccination [facility] Start: 07-16-[address] [facility] Start: 07-16-[address] [facility] Start: 06-19-2023 Advance Directive Discussion Advance Directive Discussion [facility] Start: 06-19-2023 Behavioral Health Screening Behavioral Health Screening [facility] Start: 06-19-2023 Depression Assessment Depression Assessment [facility] Start: 02-17-2023 Covid-19 Vaccine () Covid-19 Vaccine () [facility] Start: 02-17-2023 Influenza vaccination Influenza Vaccine (#1) [facility] Start: 10-10-2022 Patient referral [facility] Work Phone: Start: 02-01-2022 Simple repair f/e/e/n/l/m 2.6cm-5.0 cm RPR F/E/E/N/L/M 2.6-5.[address] [facility] Work Phone: Start: 09-17-2021 Diabetic foot examination Diabetic Foot Exam [facility] Start: 09-14-2021 Hepatitis B surface antibody level LDL Cholesterol [facility] Start: 04-07-2021 Glaucoma screening Dilated Retinal Exam [facility] Start: 03-30-2021 Hemoglobin A1c measurement HbA1C [facility] Start: 01-19-2021 Hepatitis B screening Urine Albumin:Creatinine Ratio [facility] Start: 09-06-2017 End: 09-06-2017 Appointment Appointment [facility] Work Phone: Start: 05-22-2017 End: 05-22-2017 Appointment Appointment [facility] Work Phone: Start: 05-09-2017 End: 05-09-2017 Hepatobiliary imaging NM HIDA Scan with EF [facility] Work Phone: Start: 05-09-2017 End: 05-09-2017 Us abdominal real time w/image documentation US Abdomen, RUQ [facility] Work Phone: Start: 05-09-2017 End: 05-09-2017 Appointment Appointment [facility] Work Phone: Start: 03-09-2017 End: 03-09-2017 Follow Up Appt 6 months Follow Up Appt 6 months [facility] Work Phone: Start: 03-09-2017 End: 03-09-2017 MMM MMM [facility] Work Phone: Start: 01-20-2017 End: 01-20-2017 *BMP *BMP [facility] Work Phone: Start: 01-20-2017 End: 01-20-2017 *CBC with Differential *CBC with Differential [facility] Work Phone: Start: 01-20-2017 End: 01-20-2017 BNP *Brain Natriuretic Peptide BNP [facility] Work Phone: Start: 01-20-2017 End: 01-20-2017 Chest x-ray X-Ray, Chest, PA & Lateral [facility] Work Phone: Start: 01-20-2017 End: 01-20-2017 Follow Up Appt Other Follow Up Appt Other [facility] Work Phone: Start: 11-28-2016 End: 11-28-2016 DMB DMB [facility] Work Phone: Start: 11-28-2016 End: 11-28-2016 Follow Up Appt 1 year Follow Up Appt 1 year [facility] Work Phone: Start: 09-06-2016 End: 09-06-2016 [employer] [facility] Work Phone: Start: 09-06-2016 End: 09-06-2016 Follow Up Appt 6 months Follow Up Appt 6 months [facility] Work Phone: Start: 09-06-2016 End: 09-06-2016 Follow Up Appt Other Follow Up Appt Other [facility] Work Phone: Start: 08-22-2016 End: 08-23-2016 BNP *Brain Natriuretic Peptide BNP [facility] Work Phone: Start: 08-22-2016 End: 09-07-2016 DMB DMB [facility] Work Phone: Start: 08-22-2016 End: 09-07-2016 Echo tthrc r-t 2d w/wom-mode compl spec&colr d Echo Complete with Color Flow [facility] Work Phone: Start: 08-22-2016 End: 09-07-2016 Follow Up Appt 3 months Follow Up Appt 3 months [facility] Work Phone: Start: 06-08-2016 End: 08-18-2016 *MISC - Miscellaneous Lab Test #1 *MISC - Miscellaneous Lab Test #1 [facility] Work Phone: Start: 05-31-2016 End: 05-31-2016 DMB DMB [facility] Work Phone: Start: 05-31-2016 End: 05-31-2016 Follow Up Appt 4 months Follow Up Appt 4 months [facility] Work Phone: Start: 05-20-2016 End: 05-20-2016 Follow Up Appt 6 months Follow Up Appt 6 months [facility] Work Phone: Start: 05-20-2016 End: 05-20-2016 MMM MMM [facility] Work Phone: Start: 04-20-2016 End: 10-20-2015 *Hepatic Function Panel *Hepatic Function Panel [facility] Work Phone: Start: 04-20-2016 End: 10-20-2015 Lipid panel [AGGREGATE] *Lipid Profile CC PCP [facility] Work Phone: Start: 03-21-2016 End: 03-21-2016 *CBC with Differential *CBC with Differential [facility] Work Phone: Start: 03-21-2016 End: 04-29-2016 Assay of ferritin Ferritin [facility] Work Phone: Start: 03-21-2016 End: 03-21-2016 DMB DMB [facility] Work Phone: Start: 03-21-2016 End: 03-21-2016 Follow Up Appt 6 weeks Follow Up Appt 6 weeks [facility] Work Phone: Start: 03-21-2016 End: 03-21-2016 Iron and Iron binding capacity panel - Serum or Plasma *IBC Iron & Total Iron Binding Capacity [facility] Work Phone: Start: 03-21-2016 End: 03-21-2016 Reticulocytes/100 erythrocytes *Reticulocyte Count [facility] Work Phone: Start: 03-14-2016 End: 03-14-2016 Left Heart Cath Left Heart Cath [facility] Work Phone: Start: 03-09-2016 End: 03-09-2016 CBC W Auto Differential panel - Blood *CBC without Diff [facility] Work Phone: Start: 03-08-2016 End: 03-09-2016 *BMP *BMP [facility] Work Phone: Start: 03-08-2016 End: 03-09-2016 BNP *Brain Natriuretic Peptide BNP [facility] Work Phone: Start: 03-08-2016 End: 03-09-2016 Ct angiography chest w/contrast/noncontrast CTA Chest, with contrast material(s) [facility] Work Phone: Start: 03-08-2016 End: 03-08-2016 Ecg routine ecg w/least 12 lds w/i&r EKG (In office) [facility] Work Phone: Start: 03-08-2016 End: 03-08-2016 Follow Up Appt 6 weeks Follow Up Appt 6 weeks [facility] Work Phone: Start: 03-08-2016 End: 03-08-2016 MMM MMM [facility] Work Phone: Start: 02-08-2016 End: 04-29-2016 DMB DMB [facility] Work Phone: Start: 02-08-2016 End: 04-29-2016 Follow Up Appt 6 weeks Follow Up Appt 6 weeks [facility] Work Phone: Start: 02-08-2016 End: 03-18-2016 Pulmonary Function Test - complete Pulmonary Function Test - complete [facility] Work Phone: Start: 10-15-2015 End: 10-19-2015 *Hepatic Function Panel *Hepatic Function Panel [facility] Work Phone: Start: 10-15-2015 End: 10-15-2015 Follow Up Appt 6 months Follow Up Appt 6 months [facility] Work Phone: Start: 10-15-2015 End: 10-19-2015 Lipid panel [AGGREGATE] *Lipid Profile CC PCP [facility] Work Phone: Start: 10-15-2015 End: 10-15-2015 MMM MMM [facility] Work Phone: Start: 08-27-2015 End: 08-27-2015 Follow Up Appt 6 weeks Follow Up Appt 6 weeks [facility] Work Phone: Start: 08-27-2015 End: 08-27-2015 MMM MMM [facility] Work Phone: Start: 08-06-2015 End: 08-06-2015 *BMP *BMP [facility] Work Phone: Start: 08-06-2015 End: 08-06-2015 BNP *Brain Natriuretic Peptide BNP [facility] Work Phone: Start: 08-06-2015 End: 08-06-2015 CBC W Auto Differential panel - Blood *CBC without Diff [facility] Work Phone: Start: 08-06-2015 End: 08-06-2015 Follow up Appt 3 weeks Follow up Appt 3 weeks [facility] Work Phone: Start: 08-06-2015 End: 08-06-2015 MMM MMM [facility] Work Phone: Start: 07-16-2015 End: 08-27-2015 Cardiac Rehab Cardiac Rehab [facility] Work Phone: Start: 07-16-2015 End: 07-16-2015 Ecg routine ecg w/least 12 lds w/i&r EKG (In office) [facility] Work Phone: Start: 07-16-2015 End: 07-16-2015 Follow Up Appt 6 weeks Follow Up Appt 6 weeks [facility] Work Phone: Start: 07-16-2015 End: 07-16-2015 MMM MMM [facility] Work Phone: Start: 06-16-2015 End: 06-17-2015 BNP *Brain Natriuretic Peptide BNP [facility] Work Phone: Start: 06-16-2015 End: 06-16-2015 Ecg routine ecg w/least 12 lds w/i&r EKG (In office) [facility] Work Phone: Start: 06-16-2015 End: 06-16-2015 Echocardiography Echocardiogram (complete) [facility] Work Phone: Start: 06-16-2015 End: 07-16-2015 Follow Up Appt 6 months Follow Up Appt 6 months [facility] Work Phone: Start: 06-16-2015 End: 07-16-2015 MMM MMM [facility] Work Phone: Start: 12-04-2014 End: 12-04-2014 DWARF TREE GROWER DWARF TREE GROWER [facility] Work Phone: Start: 12-04-2014 End: 12-04-2014 Ecg routine ecg w/least 12 lds w/i&r EKG (In office) [facility] Work Phone: Start: 12-04-2014 End: 12-04-2014 Follow Up Appt 6 months Follow Up Appt 6 months [facility] Work Phone: Start: 12-04-2014 End: 12-04-2014 Nuclear stress test -Lexiscan Nuclear stress test -Lexiscan [facility] Work Phone: Start: 05-29-2014 End: 05-29-2014 24 hour holter monitor 24 hour holter monitor [facility] Work Phone: Start: 05-29-2014 End: 05-29-2014 Follow Up Appt 6 months Follow Up Appt 6 months [facility] Work Phone: Start: 05-29-2014 End: 05-29-2014 MMM MMM [facility] Work Phone: Start: 12-31-2013 End: 12-31-2013 DWARF TREE GROWER DWARF TREE GROWER [facility] Work Phone: Start: 12-31-2013 End: 12-31-2013 Follow Up Appt 6 months Follow Up Appt 6 months [facility] Work Phone: Start: 06-25-2013 End: 06-25-2013 Ecg routine ecg w/least 12 lds w/i&r EKG (In office) [facility] Work Phone: Start: 06-25-2013 End: 06-25-2013 Follow Up Appt 6 months Follow Up Appt 6 months [facility] Work Phone: Start: 06-25-2013 End: 06-25-2013 MMM MMM [facility] Work Phone: Start: 05-19-2013 End: 06-21-2013 *Hepatic Function Panel *Hepatic Function Panel [facility] Work Phone: Start: 05-19-2013 End: 06-21-2013 Lipid panel [AGGREGATE] *Lipid Profile CC PCP [facility] Work Phone: Start: 11-17-2012 End: 12-05-2012 *Hepatic Function Panel *Hepatic Function Panel [facility] Work Phone: Start: 11-17-2012 End: 12-05-2012 Lipid panel [AGGREGATE] *Lipid Profile [facility] Work Phone: Start: 2012 RSV Vaccine (1 - 1-dose 75+ series) RSV Vaccine (1 - 1-dose 75+ series) [facility] Start: 06-21-2012 End: 06-21-2012 Follow Up Appt 1 year Follow Up Appt 1 year [facility] Work Phone: Start: 06-23-2011 End: 06-23-2011 Follow Up Appt 1 year Follow Up Appt 1 year [facility] Work Phone: Start: 06-21-2011 Shingrix Vaccine (2 of 3) Shingrix Vaccine (2 of 3) [facility] Start: 1997 RSV Vaccine (1 - 1-dose 60+ series) RSV Vaccine (1 - 1-dose 60+ series) [facility] Start: [birth year]-20-1953 Depression Screening Depression Screening [facility] Anion gap in Serum or Plasma [facility] BUN/Creatinine ratio [facility] Calcium [Mass/volume ] in Serum or Plasma [facility] Carbon dioxide, tota l [Moles/volume] in Central venous blood [facility] Catheterization of left heart [facility] Work Phone: Creatinine [Mass/vol ume] in Serum or Plasma [facility] Electrocardiographic procedure [facility] Erythrocyte mean cor puscular volume determination [facility] Glucose [Mass/volume ] in Serum or Plasma [facility] Hematocrit [Volume F raction] of Blood [facility] Hemoglobin [Mass/vol ume] in Blood [facility] Leukocytes [#/volume ] in Blood [facility] Mean corpuscular hem oglobin concentration determination [facility] Mean corpuscular hem oglobin determination [facility] Measurement of renal function [facility] Neutrophil count [facility] Neutrophil percent differential count [facility] Patient Education [facility] Work Phone: Patient referral [facility] Work Phone: Platelets [#/volume] in Blood [facility] Potassium measurement [facility] Red blood cell count [facility] Red cell distributio n width determination [facility] Serum chloride measurement [facility] Sodium measurement [facility] Urea nitrogen [Mass/ volume] in Serum or Plasma [facility] Urine culture [facility] XR Chest PA and Lateral [facility] Immunizations Immunization Date Immunization Notes Care Provider Fa cility 12-31-2024 tetanus toxoid, redu anuradha diphtheria toxoid, and acellular pertussis vaccine, adsorbed Dr. Keron Maciel MD Work Phone: [facility] 11-12-2023 tetanus toxoid, redu anuradha diphtheria toxoid, and acellular pertussis vaccine, adsorbed Dr. Keron Maciel MD Work Phone: [facility] 02-01-2022 tetanus toxoid, redu anuradha diphtheria toxoid, and acellular pertussis vaccine, adsorbed Dr. Keron Maciel Work Phone: [facility] 08-07-2020 Covid (Moderna) Dr. Keron hdez Work Phone: [facility] 07-10-2020 Covid (Moderna) Dr. Keron hdez Work Phone: [facility] 03-07-2020 influenza virus vacc ine, unspecified formulation [employer] Work Phone: [facility] 02-07-2020 tetanus toxoid, redu anuradha diphtheria toxoid, and acellular pertussis vaccine, adsorbed Dr. Keron Maciel Work Phone: [facility] 03-07-2019 influenza, high dose seasonal, preservative-free [employer] Work Phone: [facility] 03-03-[address] Keron Maciel Work Phone: [facility] 03-08-2018 influenza, injectabl e, quadrivalent, contains preservative [employer] Work Phone: [facility] 03-08-2018 influenza, injectabl e, quadrivalent, preservative free Dr. Keron Maciel MD Work Phone: [facility] 04-07-2015 influenza, injectabl e, quadrivalent, preservative free Dr. Keron Maciel Work Phone: [facility] 04-07-2015 influenza, seasonal, injectable Dr. Keron Maciel Work Phone: [facility] 03-19-2015 influenza, high dose seasonal, preservative-free [employer] Work Phone: [facility] 03-19-2015 influenza, injectabl e, quadrivalent, preservative free Dr. Keron Maciel MD Work Phone: [facility] 12-23-2014 pneumococcal conjuga te vaccine, 13 valent [employer] Work Phone: [facility] 06-19-2014 influenza, injectabl e, quadrivalent, preservative free Dr. Keron Maciel MD Work Phone: [facility] 04-03-2013 influenza virus vacc ine, unspecified formulation [employer] Work Phone: [facility] 04-26-2011 zoster vaccine, live [employer] Work Phone: [facility] Work Phone: 04-05-2010 influenza virus vacc ine, unspecified formulation [employer] Work Phone: [facility] 03-19-2009 influenza virus vacc ine, unspecified formulation [employer] Work Phone: [facility] 11-17-2005 tetanus and diphther ia toxoids, adsorbed, preservative free, for adult use (2 Lf of tetanus toxoid and 2 Lf of diphtheria toxoid) [employer] Work Phone: [facility] 04-28-2005 influenza virus vacc ine, unspecified formulation [employer] Work Phone: [facility] Work Phone: 03-19-2004 influenza virus vacc ine, whole virus [employer] Work Phone: [facility] 04-29-2003 pneumococcal polysaccharide vaccine, 23 valent [employer] Work Phone: [facility] 04-29-[address] Elisabeth Maciel Work Phone: [facility] Work Phone: 04-29-2003 pneumococcal vaccine , unspecified formulation Dr. Keron Maciel Work Phone: [facility] 03-19-2003 influenza virus vacc ine, whole virus [employer] Work Phone: [facility] Payers Date Payer Category Payer Self-pay [id number] 2017 Medicare [employer] MEDICARE A ETNA MEDICARE PPO [id number] 2017-Present [phone] [address] [place] [address] PPO [id number] 2017 Medicare (Managed Care) [employer] [facility] [id number] 2017 Private Health Insurance [id number] 2006 Unknown [id number] Medicare [id number] Medicare [id number] Unknown [id number] 2.16.840.1.733894.3.579.2. 462 Unknown [id number] 2.16.840.1.398118.3.579.2. 462 Unknown [id number] 2.16.840.1.114953.3.579.2. 462 Unknown [id number] 2.16.840.1.151914.3.579.2. 462 Unknown [id number] 2.16.840.1.914894.3.579.2. 462 Unknown [id number] 2.16.840.1.505205.3.579.2. 462 Unknown [id number] 2.16.840.1.167103.3.579.2. 462 Unknown [id number] 2.16.840.1.500987.3.579.2. 462 Unknown [id number] 2.16.840.1.119181.3.579.2. 462 Unknown [id number] 2.16.840.1.928858.3.579.2. 462 Unknown [id number] 2.16.840.1.976336.3.579.2. 462 Unknown [id number] 2.16.840.1.868705.3.579.2. 462 Unknown [id number] 2.16.840.1.424285.3.579.2. 462 Unknown [id number] 2.16.840.1.035395.3.579.2. 462 Unknown [id number] 2.16.840.1.716814.3.579.2. 462 Unknown [id number] 2.16.840.1.463183.3.579.2. 462 Unknown [id number] 2.16.840.1.189858.3.579.2. 462 Unknown [id number] 2.16.840.1.367353.3.579.2. 462 Unknown [id number] 2.16.840.1.940214.3.579.2. 462 Unknown [id number] 2.16.840.1.066781.3.579.2. 462 Unknown [id number] 2.16.840.1.336055.3.579.2. 462 Unknown [id number] 2.16.840.1.104475.3.579.2. 462 Unknown [id number] 2.16.840.1.335531.3.579.2. 462 Unknown [id number] 2.16.840.1.073239.3.579.2. 462 Unknown [id number] 2.16.840.1.632453.3.579.2. 462 Unknown [id number] 2.16.840.1.224437.3.579.2. 462 Unknown [id number] 2.16.840.1.283179.3.579.2. 462 Unknown [id number] 2.16.840.1.767824.3.579.2. 462 Unknown [id number] 2.16.840.1.406009.3.579.2. 462 Unknown [id number] 2.16840.1.728653.3.579.2. 462 Social History Date Type Detail Facility Start: 10-13-2021 End: 09-14-2023 Tobacco smoking status INIS Unknown if ever smoked [facility] Start: 02-12-2020 None [facility] Start: 02-12-2020 Spouse/ Signif icant Other [facility] Start: 02-12-2020 Non-smoker [facility] Start: 1935 Sex Assigned At Male [facility] Start: 11-01-2010 End: 12-31-2024 Tobacco smoking status INIS Ex-smoker [facility] Work Phone: Start: 10-18-1959 End: 10-17-1964 History of tobacco use Current smoker [facility] Work Phone: Start: 10-18-1959 End: 10-17-1964 History of tobacco use Cigarette Smoker [facility] Work Phone: Start: 11-01-2010 End: 07-31-2023 Cigarettes smoked current (pack per day) - Reported 1 [facility] Start: 11-01-2010 Tobacco use and exposure Smokeless tobacco non-user [facility] Work Phone: Start: 07-31-2023 End: 12-13-2024 Alcohol intake Current non-drinker of alcohol (finding) [facility] Start: 09-24-2018 End: 07-31-2023 Tobacco use panel [facility] Adult Depression Screening Assessment 0 [facility] Start: 1935 Sex Assigned At Not on file C [facility] Start: 06-16-2024 Tobacco Use Tobacco Use [facility] Medical Equipment Procedure Code Equipment Code Equipment Origin al Text Equipment Identifier Dates Pen Needle, Diab etic 32 gauge x 1/4 needle Start: 12-25-2020 Pen Needle, Diab etic 32 gauge x 1/4 needle Start: 12-25-2020 End: 12-25-2020 Pen Needle, Diab etic 32 gauge x 1/4 needle Start: 12-25-2020 Pen Needle, Diab etic 32 gauge x 1/4 needle Start: 12-25-2020 End: 12-25-2020 Pen Needle, Diab etic 32 gauge x 1/4 needle Start: 12-25-2020 Pen Needle, Diab etic 32 gauge x 1/4 needle Start: 12-25-2020 End: 12-25-2020 Pen Needle, Diab etic 32 gauge x 1/4 needle Start: 12-25-2020 Pen Needle, Diab etic 32 gauge x 1/4 needle Start: 12-25-2020 End: 12-25-2020 Pen Needle, Diab etic 32 gauge x 1/4 needle Start: 12-25-2020 Pen Needle, Diab etic 32 gauge x 1/4 needle Start: 12-25-2020 End: 12-25-2020 Pen Needle, Diab etic 32 gauge x 1/4 needle Start: 12-25-2020 Pen Needle, Diab etic 32 gauge x 1/4 needle Start: 12-25-2020 End: 12-25-2020 Pen Needle, Diab etic 32 gauge x 1/4 needle Start: 12-25-2020 Pen Needle, Diab etic 32 gauge x 1/4 needle Start: 12-25-2020 End: 12-25-2020 Functional Status Date Assessment Result Facility 05-03-2017 Are you deaf, or do you have serious difficulty hearing No 05/03/2017 3:51 PM Soham Mcgraw III, MD No [facility] 05-03-2017 Are you blind, or do you have serious difficulty seeing, even when wearing glasses No 05/03/2017 3:51 PM Soham Mcgraw III, MD [facility] 05-03-2017 Do you have serious difficulty walking or climbing stairs No 05/03/2017 3:51 PM Soham Mcgraw III, MD [facility] 05-03-2017 Do you have difficul ty dressing or bathing No 05/03/2017 3:51 PM Soham Mcgraw III, MD [facility] 05-03-2017 Because of a physica l, mental, or emotional condition, do you have difficulty doing errands alone such as visiting a physician's office or shopping No 05/03/2017 3:51 PM Soham Mcgraw III, MD [facility] Mental Status Date Assessment Result Facility 05-03-2017 Because of a physica l, mental, or emotional condition, do you have serious difficulty concentrating, remembering, or making decisions No 05/03/2017 3:51 PM Soham Mcgraw III, MD [facility] Clinical Notes 07-01-2015 to 12-31-2024 Note Date & Type Note Facility 12-31-2024 Radiology Diagnostic study note [facility] 12-21-2024 Discharge summary [facility] 12-21-2024 Radiology Diagnostic study note [facility] [address] [place], [place] [address] Chest without Contrast MR#: [id number] Acct: [id number] Name: OLMAN SYED Rep #: [id number] : [id number] M [id number] From: Juana Jimenez MD PCP: Dr. Keron Maciel MD Status: REG ER Study:Chest without Contrast Date of Exam: 12/21/24 Exam# [id number] Ordering Dr: Rhonda Sorenson DO PROCEDURE: CHEST WITHOUT CONTRAST 12/21/2024 REASON FOR EXAM: CONCERN FOR PNEUMONIA TECHNIQUE: Chest CT without contrast. Coronal and Sagittal reconstruction series were provided. One or more dose reduction techniques were used (e.g., Automated exposure control, adjustment of the mA and/or kV according to patient size, use of iterative reconstruction technique RADIATION DOSE SUMMARY: CTDlvol: 19.93 mGy DLP: 771.83 mGycm FINDINGS: No acute parenchymal airspace opacity. Pleural thickening on the left with areas of rib deformity either from trauma or thoracotomy. Negative for pulmonary consolidation. No mediastinal mass. Normal thoracic aorta. No aneurysm. Dense coronary artery calcification is present. Moderate-sized hiatal hernia. Liver cysts are present. CT/Chest without Contrast IMPRESSION: No acute abnormality Reading Location: [facility] CC: Dr. Keron Maciel MD; Dr. Derick Sorenson DO ~ Life Cycle Assessment Analyst: Signed [facility] 12-21-2024 Radiology Diagnostic study note [facility] Services [address] [place] [address] Chest PA and Lateral MR#: [id number] Acct: [id number] Name: OLMAN SYED Rep #: [id number] : [id number] M [id number] From: Babita Myers MD PCP: Dr. Keron Maciel MD Status: REG ER Study:Chest PA and Lateral Date of Exam: 12/21/24 Exam# [id number] Ordering Dr: Rhonda Sorenson DO PROCEDURE: CHEST PA AND LATERAL 12/21/2024 REASON FOR EXAM: SOB TECHNIQUE: CHEST PA AND LATERAL COMPARISON: Chest radiograph 12/09/2024. FINDINGS: Hardware: Prior median sternotomy and CABG. Partially visualized spinal fixation hardware. Heart: The heart size is normal. Unchanged retrocardiac lucency, compatible with hiatal hernia. Mediastinum: The mediastinal contour is stable. Calcification of the thoracic aorta. Lungs: Persistent infiltrate within the left mid lung and lingula, obscuring the heart border. No pleural effusion or pneumothorax. Bones: Degenerative changes are identified within the thoracic spine. Arthrosisof the bilateral glenohumeral joints. Chronic bilateral rib fracture deformities. RAD/Chest PA and Lateral IMPRESSION: Stable chest radiograph with left mid/lingular infiltrate. Reading Location: [id number] CC: Dr. Keron Maciel MD; Dr. Derick Sorenson DO ~ Life Cycle Assessment Analyst: Signed [facility] 12-21-2024 Discharge summary Note Date/Time December 21, 2024 8:32p m [facility] Medical Records Department [address] [place] [address] Emergency Department Summary 12/21/24 MR#: [id number] Acct: [id number] Name: OLMAN SYED Rep #:[id number] : 1935 89 From: Derick Sorenson DO PCP: Dr. Keron Maciel MD Status:REG ER Location: ED HPI History of Present Illness Chief Complaint: Shortness of Breath Narrative Narrative: Patient is a 89-year-old male with past medical history of Parkinson's disease, TIA, diabetes, CVA, GERD, BPH, hypothyroidism, chronic kidney disease, hypertension, hyperlipidemia who presents to the emergency department chief complaint of shortness of breath. Patient states that he has been short of breath for a while but states that this has been progressively worsening prompting him to come here to the emergency department for further evaluation management. He states that he is currently on antibiotics for a pneumonia although he states that he cannot tell me exactly what antibiotic he is on does not recall the name and nor does the significant other at bedside. He states that has been taking his medications as prescribed not missing doses. He statesthat if he walks a short distance he is very short of breath. [facility] Medical History Pneumonia Parkinson's disease Vasovagal episode Obesity (BMI 30-39.9) [...] flank pain Anemia Atherosclerotic heart disease of [place] coronary artery without angina pectoris 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 Palpitations Nonrheumatic tricuspid (valve) insufficiency HLD (hyperlipidemia) Chest pain Appendicitis Benign prostatic hypertrophy GERD (gastroesophageal reflux disease) Nephrolithiasis Diabetes mellitus type 2 in obese Home Medications ?Medication ?Instructions ?Recorded ?Last Taken ?Type cholecalciferol (vitamin D3) 125 5,000 unit PO DAILY v itamin 06/29/15 02/10/20 History mcg (5,000 unit) capsule finasteride 5 mg tablet 5 mg PO DAILY prostate 06/2910/29/21 History aspirin 81 mg tablet,delayed 81 mg PO DAILY heart heal th 07/24/15 10/29/21 History release acetaminophen 500 mg tablet 1,000 mg (2 x 500 mg) PO Q 6H PRN 02/19/20 Unknown Rx PRN Pain Score 1-3/10 Handi cap Placard #1 ea 10/14/20 Unknown Rx vitamins A,C,G-urqi-bogsyh 2,148 1 tab PO BID 12/17/20 Unknown History mcg-113 mg-45 mg-17.4 mg tablet (PreserVision AREDS) pen needle, diabetic 32 gauge x #100 ea 12/25/20 Unkno wn Rx 1/4 Compression stockings (-20) #2 ea 01/04/24 Unknown R x Left AFO #1 ea 01/04/24 Unknown Rx levothyroxine 50 mcg tablet 50 mcg PO DAILY thyroid #9 0 tabs 02/01/24 Unknown Rx escitalopram oxalate 10 mg tablet 10 mg PO DAILY #90 t abs 03/05/24 Unknown Rx furosemide 40 mg tablet 40 mg PO DAILY #90 TABLETS 0 03/05/24 Unknown Rx pantoprazole 40 mg tablet,delayed See Rx Instructions .Route 03/05/24 Unknown Rx release .COMPLEX #90 tabs ranolazine 500 mg tablet,extended 500 mg PO BID #180 t abs 03/12/24 Unknown Rx release,12 hr metformin 500 mg tablet 500 mg PO BIDCM diabetes #18 0 tabs 03/19/24 Unknown Rx isosorbide mononitrate 30 mg 30 mg PO DAILY #90 TABLET S 04/01/24 Unknown Rx tablet,extended release 24 hr ascorbic acid (vitamin C) 1,000 mg 1 g PO DAILY Unknown History tablet (C-1000) cyanocobalamin (vitamin B-12) 1,000 mcg PO DAILY 06/15 Unknown History 1,000 mcg tablet (Vitamin B-12) ferrous sulfate 325 mg (65 mg 325 mg PO DAILY 06/15/24 Unknown History iron) tablet (Feosol) folic acid 1 mg tablet 1 mg PO DAILY #30 tabs 06/15 Unknown Rx hydrocodone-acetaminophen 5-325mg 0.5 - 1 tab PO BID P RN PRN pain 06/15/24 Unknown History 5mg-325mg zinc acetate 50 mg (zinc) capsule 50 mg PO DAILY 06/15 Unknown History insulin human U-100 NPH-regulr See Rx Instructions sub cut BID 06/24/24 Unknown History 70-30 mix 100 unit/mL subcutaneous susp (Humulin 70/30 U-100 Insulin) pravastatin 20 mg tablet 20 mg PO DAILY cholesterol # 90 tabs 07/23/24 Unknown Rx carbidopa 25 mg-levodopa 100 mg 2 tab PO TID #180 tabs 08/01/24 Unknown Rx tablet (Sinemet) amlodipine 5 mg tablet 5 mg PO DAILY BP #90 tabs Unknown Rx trazodone 50 mg tablet 50 mg PO QHS PRN PRN insomni a #60 10/03/24 Unknown Rx tabs fludrocortisone 0.1 mg tablet See Rx Instructions PO . COMPLEX 10/23/24 Unknown Rx #28 tabs clopidogrel 75 mg tablet 75 mg PO DAILY for cholester ol #90 11/08/24 Unknown Rx TABLETS hydrocodone 7.5 mg-acetaminophen 1 tab PO TID PRN PRN pain 11/19/24 Unknown History 325 mg tablet azithromycin 500 mg tablet 500 mg PO QDAY #5 tabs 11/18 10/11 Unknown Rx doxycycline hyclate 100 mg capsule 100 mg PO BID 5 day s #10 caps 12/21/24 Unknown Rx Allergy/AdvReac Type Severity Reaction Status Date / Time lisinopril Allergy Mild Cough Verified 12/21/24 15:35 naproxen (From Aleve) Allergy HIVES Verified 12/21/24 15:35 losartan AdvReac Intermediate Jitters Verified 12/21/24 15:35 metoprolol AdvReac Intermediate Jitters Verified 12/21/24 15:35 pioglitazone HCl (From Actos) AdvReac Mild Upset Verified 12/21/24 15:35 Stomach Family History Mother CAD (coronary artery disease) CVA (cerebral vascular accident) Brother CAD (coronary artery disease) Myocardial infarction Diabetes Heart disease Daughter Asthma Father Cancer bone cancer Sister Breast cancer Asthma Diabetes Heart disease Sister Cardiomyopathy Surgical History History of right and left heart catheterization (07/02/18) History of coronary artery stent placement (07/01/15) History of left heart catheterization (11/01/21) History of lymph node biopsy History of appendectomy History of back surgery Social History household members: spouse housing: house Smoking Status: Former smoker pack-years: 2 how long ago did patient quit smokin+ years ago alcohol intake: former substance use type: does not use caffeine: Yes Type: coffee Number of servings: 2 what type of physical activity do you participate in: none seatbelt use: always do you feel safe at home: Yes ROS ROS ED ROS Narrative Constitutional: Denies any fevers, chills, headaches Eyes: Denies change in vision double vision blurry vision Cardiovascular: Denies chest pain or palpitation Respiratory: Complains of cough and shortness of breath Abdomen: Denies abdominal pain nausea vomit diarrhea : Denies urinary symptoms Neurological: Denies numbness, wheeze, tingling Musculoskeletal: Denies back pain Skin: Denies any rashes or lesions EXAM Physical Exam Narrative Exam Narrative: General: Patient lying in bed rest comfortably did not appear to be acute distress Head: Atraumatic, normocephalic Eyes: PERRL bilaterally, EOMI by, no conjunctival injection noted Neck: Soft, supple, trachea midline Cardiovascular: Patient has regular rate and rhythm no murmurs gallops rubs noted Respiratory: Diminished breath sounds bilaterally Abdomen: Soft, nondistended, nontender to palpation Extremities: Patient has 1+ pitting edema in the bilateral lower extremities, +4/5 strength noted in the bilateral upper and lower extremities, radial pulses +2/4 in the bilateral extremities Neurological: Patient follow commands knew that he was at [facility] Skin: Warm, dry, intact no rashes or lesions noted Const Vital Signs: 12/21/24 15:35 12/21/24 16:08 12/21/24 16:58 Temperature 97.8 F Temperature Source Oral Pulse Rate 65 Respiratory Rate 24 H Respiratory Effort Normal Respiratory Depth Shallow Respiratory Pattern Tachypnea Blood Pressure 149/80 H Blood Pressure Mean 103 Pulse Ox 94 Oxygen Delivery Method Room Air Room Air 12/21/24 17:35 12/21/24 19:00 Temperature Temperature Source Pulse Rate 64 64 Respiratory Rate 18 18 Respiratory Effort Respiratory Depth Respiratory Pattern Blood Pressure 183/90 H 128/78 H Blood Pressure Mean 121 94 Pulse Ox 97 96 Oxygen Delivery Method Room Air Room Air MDM MDM MDM Narrative Medical decision making narrative: Patient is a 89-year-old male who presented to the emergency department with a chief complaint of shortness of breath with dyspnea exertion. On the differential diagnosis includes but not limited to ACS, pneumonia, pneumothorax,CHF. Once workup is obtained reviewed he will be reevaluated. There is concernfor hypervolemic state therefore the patient will only be given 1 L of IV fluids. Patient CBC reviewed showed no evidence leukocytosis white blood count 5.6, hemothirteen 0.9, plate count 211. Patient's INR 1.1, PT 14.6. Patient sodium was 139, potassium normal at 3.8, creatinine is around his baseline at 1.46. Patient's troponin was 44 with a delta troponin of 42. Patient's EKG reviewed and showed sinus rhythm with evidence of right bundle branch block with a rate of 64 bpm. Patient proBNP was normal at 542. Patient's chest x-ray reviewed and showed stable chest radiograph with left mid/lingular infiltrate given that he is on oral antibiotics azithromycin we will give him a dose of Vanco and Zosyn. Ambulated the patient he ambulated well no tachycardia no hypoxia he felt well overall given that he has not had a CT of his chest recently and has been diagnosed with pneumonia a few times will add a CT chest on. Patient CT chest reviewed showed no acute abnormalities or liver cyst present. Discussed the results with the patient and with shared decision making he would like to go home at this point time. He was advised to discontinue azithromycin and we will change in doxycycline he states that he has 3 days left of this we will extend it to 5 days. He is encouraged to follow-up with Dr. Duran setting return with worsening symptoms or concerns. He is agreeable this plan as well as significant other bedside all question concerns answered discharged home in stable condition. Lab Data Labs: Laboratory Results - last 24 hr 12/21/24 12/21/24 16:50 18:52 WBC 5.6 RBC 4.19 L Hgb 13.9 Hct 40.5 MCV 96.7 H MCH 33.2 H MCHC 34.3 RDW Std Deviation 50.2 H RDW Coeff of Perla 14.1 Plt Count 211 MPV 9.1 Immature Gran % (Auto) 0.700 Neut % (Auto) 60.1 Lymph % (Auto) 24.4 Hudson % (Auto) 10.8 H Eos % (Auto) 3.1 Baso % (Auto) 0.9 Absolute Neuts (auto) 3.4 Absolute Lymphs (auto) 1.36 Nucleated RBC % 0 PT 14.6 INR 1.1 APTT 29.7 Sodium 139 Potassium 3.8 Chloride 99 Carbon Dioxide 26.4 Anion Gap 14 BUN 14 Creatinine 1.46 H Estim Creat Clear Calc 38.29 L Est GFR (MDRD) Non-Af 46 L BUN/Creatinine Ratio 9.8 L Glucose 63 L Calcium 9.9 Troponin T High Sens 44 H Troponin T Hi Sens 2 Hr 42 H NT pro BNP II 542 Radiography Diagnostic Testing: Clinical Impression(s) from Imaging Studies Chest X-Ray 12/21/24 17:30 IMPRESSION: Stable chest radiograph with left mid/lingular infiltrate. [facility] Chest CT 12/21/24 18:54 IMPRESSION: No acute abnormality Reading Location: [facility] Discharge Plan Triage Chief Complaint: Shortness of Breath ED Provider: Derick Sorenson Dx/Rx/DC Orders Clinical Impression: Cough, Shortness of breath Prescriptions: New doxycycline hyclate 100 mg capsule 100 mg PO BID 5 Days Qty: 10 0RF No Action PreserVision AREDS 7,160 unit- 113 mg-100 unit tablet 1 tab PO BID Rx Instructions: administer with AM and PM meals (DME) Left AFO See Rx Instructions .Route .MEDSUPPLY Qty: 1 0RF Rx Instructions: As directed (DME) Compression stockings (10-20) See Rx Instructions .Route .MEDSUPPLY Qty: 2 0RF Rx Instructions: As directed carbidopa-levodopa [Sinemet] 25-100 mg tablet 2 tab PO TID Qty: 180 6RF Humulin 70/30 U-100 Insulin 100 unit/mL (70-30) suspension See Rx Instructions subcut BID Rx Instructions: subcutaneously twice a day; 28 units each AM, and 20 units each PM. cholecalciferol (vitamin D3) 5,000 UNIT capsule 5,000 unit PO DAILY Patient Comments: SUPPLIMENT finasteride 5 MG tablet 5 mg PO DAILY Patient Comments: PROSTATE aspirin 81 MG tablet,delayed release (DR/EC) 81 mg PO DAILY acetaminophen 500 MG tablet 1,000 mg PO Q6H PRN PRN (Reason: Pain Score 1-3/10) 0RF hydrocodone-acetaminophen 5-325 mg tablet 0.5 - 1 tab PO BID PRN PRN (Reason: pain) zinc acetate 50 mg (zinc) capsule 50 mg PO DAILY ferrous sulfate [Feosol] 325 mg (65 mg iron) tablet 325 mg PO DAILY cyanocobalamin (vitamin B-12) [Vitamin B-12] 1,000 mcg tablet 1,000 mcg PO DAILY ascorbic acid (vitamin C) [C-1000] 1,000 mg tablet 1 g PO DAILY folic acid 1 mg tablet 1 mg PO DAILY Qty: 30 0RF hydrocodone-acetaminophen 7.5-325 mg tablet 1 tab PO TID PRN PRN (Reason: pain) (DME) Handi catrina Stevensonard See Rx Instructions .Route .MEDSUPPLY Qty: 1 0RF Rx Instructions: difficulty walking short distance. expires in 5 years (DME) pen needle, diabetic 32 gauge x 1/4 needle See Rx Instructions .ROUTE .MEDSUPPLY Qty: 100 2RF Rx Instructions: As directed levothyroxine 50 mcg tablet 50 mcg PO DAILY Qty: 90 3RF furosemide 40 mg tablet 40 mg PO DAILY Qty: 90 3RF escitalopram oxalate 10 mg tablet 10 mg PO DAILY Qty: 90 3RF Rx Instructions: Take 1/2 tablet for 4 days then increase to 1 tablet. pantoprazole 40 mg tablet,delayed release (DR/EC) See Rx Instructions .ROUTE .COMPLEX Qty: 90 3RF Dose Instruction: TAKE 1 TABLET BY MOUTH ONCE DAILY FOR REFLUX Rx Instructions: TAKE 1 TABLET BY MOUTH ONCE DAILY FOR REFLUX ranolazine 500 mg tablet extended release 12 hr 500 mg PO BID Qty: 180 3RF metformin 500 mg tablet 500 mg PO BIDCM Qty: 180 3RF isosorbide mononitrate 30 mg tablet extended release 24 hr 30 mg PO DAILY Qty: 90 3RF pravastatin 20 mg tablet 20 mg PO DAILY Qty: 90 3RF amlodipine 5 mg tablet 5 mg PO DAILY Qty: 90 3RF trazodone 50 mg tablet 50 mg PO QHS PRN PRN (Reason: insomnia) Qty: 60 1RF fludrocortisone 0.1 mg tablet See Rx Instructions PO .COMPLEX Qty: 28 2RF Rx Instructions: Take 1 tablet orally in the morning 6 days/week (Monday, Monday, Monday, , Monday, Monday) clopidogrel 75 mg tablet 75 mg PO DAILY Qty: 90 3RF azithromycin 500 mg tablet 500 mg PO QDAY Qty: 5 0RF Primary Care Provider: Keron Maciel Referrals: Keron Maciel MD [Primary Care Provider] - Activity Restrictions/Additional Instructions: Stop taking the azithromycin take the doxycycline that was sent to your pharmacyas prescribed. Return with worsening symptoms or other concerns. Your CT of your chest did not show any focal consolidations. Your blood work did not show any acute abnormalities. Print Language: Malian Disposition Disposition: Home, Self Care What to do if you have Problems For any increased pain, shortness of breath, bleeding, nausea or vomiting, chestpain, or any unexpected problems, contact your Primary Care Provider. Call [facility] ([phone]) or report to the closest Emergency Room. Call 911 if necessary. 12/21/242031 <Electronically signed by Derick Sorenson DO> Cosigner Signature (if applicable): CC: Dr. Keron Maciel MD ~ Signed [facility] Work Phone: 1(857) 699-126806-27-2025 NoteHNO ID: [id number] Author: BARBIE NOVA, ? Service: ? Author Type: Physician Type: Progress Notes Filed: 12/14/2024 09:07 Note Text: Last saw pcp: not in [...] Objective: Patient presents to clinic ambulating in e[place] Vasc: DP and PT pulses are faintly palpable due to swelling bilateral. CFT is less than 5 seconds bilateral. Skin temperature is warm to cool proximal to distal bilateral. There is significant edema or varicosities noted. Neuro: Protective sensation [...] (M79.675) Pain in toe of left foot (E11.42) Diabetic polyneuropathy associated with type 2 diabetes mellitus (HCC) (M79.674) Pain in toe of right foot Plan: Patient was seen and evaluated. Nails 1-5 bilateral were debrided in length and thickness. Patient was instructed on the continued importance of diabetic foot care along with proper diet and keeping their blood sugar under control to prevent complications. Patient is to RTC in 3-[address] [facility]06-27-2025 History of Present illness Narrative* Barbie Nova - 12/13/2024 3:28 PM EDT Last saw pcp: not in chart Subjective: [...] Objective: Patient presents to clinic ambulating in [facility] Vasc: DP and PT pulses are faintly palpable due to swelling bilateral. CFT is less than 5 seconds bilateral. Skin temperature is warm to cool proximal to distal bilateral. There is significant edema or varicosities noted. Neuro: Protective sensation is intact to the foot and toes when tested with the 5.07 SWM bilateral.Vibratory sensation is absent at the hallux IPJ [...] (M79.675) Pain in toe of left foot (E11.42) Diabetic polyneuropathy associated with type 2 diabetes mellitus (HCC) (M79.674) Pain in toe of right foot Plan: Patient was seen and evaluated. Nails 1-5 bilateral were debrided in length and thickness. Patient was instructed on the continued importance of diabetic foot care along with proper diet and keeping their blood sugar under control to prevent complications. Patient is to RTC in 3-4 months. Barbie Nova DPM * Dinorah Dempsey LPN - 12/13/2024 3:19 PM EDT AMB ROOMING INTAKE FLOWSHEET DATA Patient presents with: Left Foot - Established Patient, Follow Up, Diabetic Foot Care Right Foot - Established Patient, Follow Up, Diabetic Foot Care Dinorah Dempsey LPN [facility] NoteHNO ID: [id number] Author: DINORAH DEMPSEY LPN Service: ? Author Type: LICENSED NURSE Type: Progress Notes Filed: 12/14/2024 09:07 Note Text: AMB ROOMING INTAKE FLOWSHEET DATA Patient presents with: Left Foot - Established Patient, Follow Up, Diabetic Foot Care Right Foot - Established Patient, Follow Up, Diabetic Foot Care [facility] Rad[facility] Diagnostic study note [facility] Imaging Services [address] [place] [address] [id number] Chest PA and Lateral MR#: [id number] Acct: [id number] Name: OLMAN SYED Rep #: [id number] : 1935 M 89 From: Juwan Suazo MD PCP: Dr. Keron Maciel MD Status: REG CLI Study:Chest PA and Lateral Date of Exam: 12/09/24 Exam# [id number] Ordering Dr: Keron Maciel MD PROCEDURE: CHEST PA AND LATERAL 12/09/2024 REASON FOR EXAM: PNEUMONIA/SEE 11/25/24 FILM TECHNIQUE: CHEST PA AND LATERAL COMPARISON: 11/25/2024. FINDINGS: Unchanged retrocardiac hiatal hernia. Increased bilateral basilar atelectatic changes/infiltrates. Unremarkable median sternotomy wires. Unchanged chronic deformities of the right ribs. There is no demonstrated pleural abnormality. Normal heart and pericardium. Normal mediastinum and connie. Normal visualized pulmonary arteries. Normal visualized aortic arch and descending thoracic aorta. Normal visualized thoracic spine. Normal clavicles, and shoulders. There is no demonstrated abnormality of the visualized soft tissue structures ofthe upper abdomen. RAD/Chest PA and Lateral IMPRESSION: Unchanged retrocardiac hiatal hernia. Increased bilateral basilar atelectatic changes/infiltrates. Unremarkable median sternotomy wires. Unchanged chronic deformities of the right ribs. Reading [facility] CC: Dr. Keron Maciel MD ~ Life Cycle Assessment Analyst: Signed [facility]06-09-2025 Evaluation note* Diagnosis Onset Date Resolution Status Admit Date Atherosclerotic heart diseas e of [place] coronary artery without angina pectoris chronic November 25, 2024 1 1:01am CKD (chronic kidney disease) stage 3, GFR 30-59 ml/min chronic November 252024 11:01am Essential (primary) hypertension chr onic November 25, 2024 11:01am Diabetes mellitus type 2, insulin dependent inactive November 25, 2024 11:01am Generalized weakness inactive November 25, 2024 11:01am [facility] [employer] Work Phone: [phone] Evaluation note* Diagnosis Onset Date Resolution Status Admit Date Atherosclerotic heart diseas e of [place] coronary artery without angina pectoris chronic November 25, 2024 1 1:01am CKD (chronic kidney disease) stage 3, GFR 30-59 ml/min chronic November 252024 11:01am Essential (primary) hypertension chr onic November 25, 2024 11:01am Diabetes mellitus type 2, insulin dependent inactive November 25, 2024 11:01am Generalized weakness inactive November 25, 2024 11:01am Diabetes mellitus type 2 in obese acute December 09, 2024 1:52pm Hypothyroidism acute December 09, 2024 1:52pm Parkinson's disease acute December 09, 2024 1:52pm Pneumonia acute December 09 1:52pm Atherosclerotic heart diseas e of [place] coronary artery without angina pectoris chronic December 09, 2024 1:52pm CKD (chronic kidney disease) stage 3, GFR 30-59 ml/min chronic November 182024 1:52pm Essential (primary) hypertension chr onic December 09, 2024 1:52pm HLD (hyperlipidemia) chronic December 09, 2024 1:52pm DANYELL (obstructive sleep apnea) chroni c December 09, 2024 1:52pm [facility] Work Phone: 1(185) 503-178506-09-2025 Evaluation note* Diagnosis Onset Date Resolution Status Admit Date Atherosclerotic heart disease of [place] coronary artery without angina pectoris chronic November 25, 2024 11:01am CKD (chronic kidney disease) stage 3, GFR 30-59 ml/min chronic November 252024 11:01am Essential (primary) hypertension chronic November 25, 2024 11:01am Diabetes mellitus type 2, insulin dependent inactive November 25, 2024 11:01am Generalized weakness inactive November 25, 2024 11:01am Diabetes mellitus type 2 in obese acute December 09, 2024 1:52pm Hypothyroidism acute December 09, 2024 1:52pm Parkinson's disease acute December 09, 2024 1:52pm Pneumonia acute December 09 1:52pm Atherosclerotic heart disease of [place] coronary artery without angina pectoris chronic December 09, 2024 1:52pm CKD (chronic kidney disease) stage 3, GFR 30-59 ml/min chronic November 182024 1:52pm Essential (primary) hypertension chronic December 09, 2024 1:52pm HLD (hyperlipidemia) chronic December 09, 2024 1:52pm DANYELL (obstructive sleep apnea) chronic December 09, 2024 1:52pm Shortness of breath acute December 23, 2024 1:32pm Essential (primary) hypertension chronic December 23, 2024 1:32pm HLD (hyperlipidemia) chronic December 23, 2024 1:32pm History of coronary artery stent placement July 01, 2015 inactive December 23 1:32pm [facility] Work Phone: 1(349) 305-821006-09-2025 Evaluation note* Diagnosis Onset Date Resolution Status Admit Date Atherosclerotic heart disease of [place] coronary artery without angina pectoris chronic November 25, 2024 11:01am CKD (chronic kidney disease) stage 3, GFR 30-59 ml/min chronic November 252024 11:01am Essential (primary) hypertension chronic November 25, 2024 11:01am Diabetes mellitus type 2, insulin dependent inactive November 25, 2024 11:01am Generalized weakness inactive November 25, 2024 11:01am Diabetes mellitus type 2 in obese acute December 09, 2024 1:52pm Hypothyroidism acute December 09, 2024 1:52pm Parkinson's disease acute December 09, 2024 1:52pm Pneumonia acute December 09 1:52pm Atherosclerotic heart disease of [place] coronary artery without angina pectoris chronic December 09, 2024 1:52pm CKD (chronic kidney disease) stage 3, GFR 30-59 ml/min chronic November 182024 1:52pm Essential (primary) hypertension chronic December 09, 2024 1:52pm HLD (hyperlipidemia) chronic December 09, 2024 1:52pm DANYELL (obstructive sleep apnea) chronic December 09, 2024 1:52pm Essential (primary) hypertension chronic December 23, 2024 1:32pm HLD (hyperlipidemia) chronic December 23, 2024 1:32pm History of coronary artery stent placement July 01, 2015 inactive December 23 1:32pm Shortness of breath inactive December 23, 2024 1:32pm [facility] [employer] Work Phone: 1(389) 325-300306-09-2025 Evaluation note* Diagnosis Onset Date Resolution Status Admit Date Atherosclerotic heart disease of [place] coronary artery without angina pectoris chronic November 25, 2024 11:01am CKD (chronic kidney disease) stage 3, GFR 30-59 ml/min chronic November 252024 11:01am Essential (primary) hypertension chronic November 25, 2024 11:01am Diabetes mellitus type 2, insulin dependent inactive November 25, 2024 11:01am Generalized weakness inactive November 25, 2024 11:01am Diabetes mellitus type 2 in obese acute December 09, 2024 1:52pm Hypothyroidism acute December 09, 2024 1:52pm Parkinson's disease acute December 09, 2024 1:52pm Pneumonia acute December 09 1:52pm Atherosclerotic heart disease of [place] coronary artery without angina pectoris chronic December 09, 2024 1:52pm CKD (chronic kidney disease) stage 3, GFR 30-59 ml/min chronic November 182024 1:52pm Essential (primary) hypertension chronic December 09, 2024 1:52pm HLD (hyperlipidemia) chronic December 09, 2024 1:52pm DANYELL (obstructive sleep apnea) chronic December 09, 2024 1:52pm Essential (primary) hypertension chronic December 23, 2024 1:32pm HLD (hyperlipidemia) chronic December 23, 2024 1:32pm History of coronary artery stent placement July 01, 2015 inactive December 23 1:32pm Shortness of breath inactive December 23, 2024 1:32pm Diabetes mellitus type 2 in obese acute December 30, 2024 11:10am Pneumonia acute December 30 11:10am Shortness of breath at rest acute December 30, 2024 11:10am CKD (chronic kidney disease) stage 3, GFR 30-59 ml/min chronic December 172024 11:10am Obesity chronic December 30 11:10am [facility] Work Phone: [phone]) 661-266106-09-2025 Radiology Diagnostic study note [facility] Imaging Services [address] [place] [id number] Chest PA and Lateral MR#: [id number] Acct: [id number] Name: OLMAN SYED Rep #: [id number] : 1935 M 89 From: Ana Maza MD PCP: Dr. Keron Maciel MD Status: [facility] Study:Chest PA and Lateral Date of Exam: 11/25/24 Exam# [id number] Ordering Dr: Keron Maciel MD PROCEDURE: CHEST PA AND LATERAL 11/25/2024 REASON FOR EXAM: DYSPNEA ON EXERTION TECHNIQUE: Frontal and lateral views of the chest. COMPARISON: November 19, 2024 FINDINGS: Sternotomy wires and vascular markers are noted. There is an 8 cm hiatal hernia, similar to the prior. There is infiltrate or atelectasis in the left mid lung and lingular segment which obscures the left heart border, similarto the prior. There is no pneumothorax or effusion. There is no acute bony abnormality. Aortic calcifications are visible. RAD/Chest PA and Lateral IMPRESSION: There is infiltrate or atelectasis in the left mid lung and lingular segment which obscures the left heart border, similar to the prior. Reading Location: [facility] CC: Dr. Keron Maciel MD ~ Life Cycle Assessment Analyst: Signed [facility]06-04-2025 Discharge summary [facility] Medical Records Department [address] [place] [address] Emergency Department Summary 11/19/24 MR#: [id number] Acct: [id number] Name: OLMAN SYED Rep #:[id number] : 1935 89 From: Helio Corrales DO PCP: Dr. Keron Maciel MD Status:REG ER Location: ED HPI History of Present Illness Chief Complaint: Shortness of Breath Informant: patient and spouse/S.O. Narrative Narrative: Patient is 89-year-old male with past medical history of hypertension hyperlipidemia insulin-dependent diabetes and Parkinson's disease. Patient states for the last 2 to 3 days he has had feeling of generalized weakness/fatigue. He states he has not noticed fevers chills nausea vomiting diarrhea ordysuria. He states has been no known sick contact. He reports there has been no chest pain. He states that he may have noticed slight shortness of breath but ultimately he just feels rundown tired and fatigued and without any obvious reason for it or improvement of symptoms he presents for evaluation. [facility] Medical History Parkinson's disease Vasovagal episode Obesity (BMI 30-39.9) [...] flank pain Anemia Atherosclerotic heart disease of [place] coronary artery without angina pectoris 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 Palpitations Nonrheumatic tricuspid (valve) insufficiency HLD (hyperlipidemia) Chest pain Appendicitis Benign prostatic hypertrophy GERD (gastroesophageal reflux disease) Nephrolithiasis Diabetes mellitus type 2 in obese Home Medications ?Medication ?Instructions ?Recorded ?Last Taken ?Type cholecalciferol (vitamin D3) 125 5,000 unit PO DAILY v itamin 06/29/15 02/10/20 History mcg (5,000 unit) capsule finasteride 5 mg tablet 5 mg PO DAILY prostate 06/2910/29/21 History aspirin 81 mg tablet,delayed 81 mg PO DAILY heart heal th 07/24/15 10/29/21 History release acetaminophen 500 mg tablet 1,000 mg (2 x 500 mg) PO Q 6H PRN 02/19/20 Unknown Rx PRN Pain Score 1-3/10 Handi cap Placard #1 ea 10/14/20 Unknown Rx vitamins A,C,D-athp-zelbcu 2,148 1 tab PO BID 12/17/20 Unknown History mcg-113 mg-45 mg-17.4 mg tablet (PreserVision AREDS) pen needle, diabetic 32 gauge x #100 ea 12/25/20 Unkno wn Rx 1/4 Compression stockings (04-07) #2 ea 01/04/24 Unknown R x Left AFO #1 ea 01/04/24 Unknown Rx levothyroxine 50 mcg tablet 50 mcg PO DAILY thyroid #9 0 tabs 02/01/24 Unknown Rx escitalopram oxalate 10 mg tablet 10 mg PO DAILY #90 t abs 03/05/24 Unknown Rx furosemide 40 mg tablet 40 mg PO DAILY #90 TABLETS 0 03/05/24 Unknown Rx pantoprazole 40 mg tablet,delayed See Rx Instructions .Route 03/05/24 Unknown Rx release .COMPLEX #90 tabs ranolazine 500 mg tablet,extended 500 mg PO BID #180 t abs 03/12/24 Unknown Rx release,12 hr metformin 500 mg tablet 500 mg PO BIDCM diabetes #18 0 tabs 03/19/24 Unknown Rx isosorbide mononitrate 30 mg 30 mg PO DAILY #90 TABLET S 04/01/24 Unknown Rx tablet,extended release 24 hr ascorbic acid (vitamin C) 1,000 mg 1 g PO DAILY Unknown History tablet (C-1000) cyanocobalamin (vitamin B-12) 1,000 mcg PO DAILY 06/15 Unknown History 1,000 mcg tablet (Vitamin B-12) ferrous sulfate 325 mg (65 mg 325 mg PO DAILY 06/15/24 Unknown History iron) tablet (Feosol) folic acid 1 mg tablet 1 mg PO DAILY #30 tabs 06/15 Unknown Rx hydrocodone-acetaminophen 5-325mg 0.5 - 1 tab PO BID P RN PRN pain 06/15/24 Unknown History 5mg-325mg zinc acetate 50 mg (zinc) capsule 50 mg PO DAILY 06/15 Unknown History insulin human U-100 NPH-regulr See Rx Instructions sub cut BID 06/24/24 Unknown History 70-30 mix 100 unit/mL subcutaneous susp (Humulin 70/30 U-100 Insulin) pravastatin 20 mg tablet 20 mg PO DAILY cholesterol # 90 tabs 07/23/24 Unknown Rx carbidopa 25 mg-levodopa 100 mg 2 tab PO TID #180 tabs 08/01/24 Unknown Rx tablet (Sinemet) amlodipine 5 mg tablet 5 mg PO DAILY BP #90 tabs Unknown Rx trazodone 50 mg tablet 50 mg PO QHS PRN PRN insomni a #60 10/03/24 Unknown Rx tabs fludrocortisone 0.1 mg tablet See Rx Instructions PO . COMPLEX 10/23/24 Unknown Rx #28 tabs clopidogrel 75 mg tablet 75 mg PO DAILY for cholester ol #90 11/08/24 Unknown Rx TABLETS hydrocodone 7.5 mg-acetaminophen 1 tab PO TID PRN PRN pain 11/19/24 Unknown History 325 mg tablet cephalexin 500 mg capsule 500 mg PO TID 7 days #21 cap s 11/20/24 Unknown Rx Allergy/AdvReac Type Severity Reaction Status Date / Time lisinopril Allergy Mild Cough Verified 11/19/24 22:48 naproxen (From Aleve) Allergy HIVES Verified 11/19/24 22:48 losartan AdvReac Intermediate Jitters Verified 11/19/24 22:48 metoprolol AdvReac Intermediate Jitters Verified 11/19/24 22:48 pioglitazone HCl (From Actos) AdvReac Mild Upset Verified 11/19/24 22:48 Stomach Family History Mother CAD (coronary artery disease) CVA (cerebral vascular accident) Brother CAD (coronary artery disease) Myocardial infarction Diabetes Heart disease Daughter Asthma Father Cancer bone cancer Sister Breast cancer Asthma Diabetes Heart disease Sister Cardiomyopathy Surgical History History of right and left heart catheterization (07/02/18) History of coronary artery stent placement (07/01/15) History of left heart catheterization (11/01/21) History of lymph node biopsy History of appendectomy History of back surgery Social History household members: spouse housing: house Smoking Status: Former smoker pack-years: 2 how long ago did patient quit smokin+ years ago alcohol intake: former substance use type: does not use caffeine: Yes Type: coffee Number of servings: 2 what type of physical activity do you participate in: none seatbelt use: always do you feel safe at home: Yes ROS ROS ED Constitutional Constitutional ED: Reports other Details: Positive generalized fatigue/weakness ; Denies chills or fever(s) Eyes Eyes: Denies change in vision ENT ENT ED: Denies rhinorrhea or sore throat Cardiovascular Cardiovascular: Denies chest pain, palpitations or racing heartbeat Respiratory/Chest Respiratory/Chest: Reports dyspnea; Denies cough or dyspnea on exertion Gastrointestinal Gastrointestinal: Denies abdominal pain, diarrhea, melena, nausea or vomiting Genitourinary Genitourinary ED: Denies dysuria or hematuria Musculoskeletal Musculoskeletal: Denies myalgias Integumentary Denies rash Neurologic Neurologic: Reports weakness; Denies headache(s) Hematologic/Lymphatic Hematologic/Lymphatic: Denies easy bleeding or easy bruising Allergic/Immunologic Allergic/Immunologic ED: Denies mouth swelling or tongue swelling EXAM Physical Exam Const Vital Signs: 11/19/24 22:48 11/19/24 22:50 11/19/24 23:02 Temperature 97.6 F L 97.6 F L Temperature Source Oral Oral Pulse Rate 80 80 Respiratory Rate 26 H 26 H Respiratory Effort Short of Breath Respiratory Pattern Tachypnea Blood Pressure 183/97 H 183/97 H Blood Pressure Mean 125 125 Pulse Ox 95 95 Oxygen Delivery Method Room Air Room Air Room Air 11/19/24 23:50 Temperature 97.6 F L Temperature Source Oral Pulse Rate 67 Respiratory Rate 22 H Respiratory Effort Respiratory Pattern Blood Pressure 165/81 H Blood Pressure Mean 109 Pulse Ox 94 Oxygen Delivery Method Room Air Positive well nourished, well developed and obese General Appearance ED: well developed; Negative for pallor Nutritional Appearance: obese HEENT Reports dry mucous membranes HEENT Narrative: Mucous membranes are mildly dry and tacky No tongue or lip swelling no oral lesions no airway edema or compromise; no secondary findings in the posterior pharynx to suggest infection Mouth ED: Yes dry mucous membranes Mouth: dry mucous membranes Eyes PERRL and EOMs intact bilaterally General Eye ED: Negative for pale conjunctiva or scleral icterus Neck supple and no JVD Neck Narrative: No nuchal rigidity or meningeal signs Resp normal respiratory effort and clear to auscultation bilaterally Resp Narrative: No nasal flaring retractions tachypnea or accessory muscle use Cardio regular rate and regular rhythm Rate: other Other Details: Radial and carotid pulses are equal and symmetric GI normal to inspection, nondistended, normoactive bowel sounds, non-tender, non- distended and no masses GI Narrative: No voluntary guarding or rigidity or pulsatile mass Auscultation: normoactive bowel sounds Palpation: soft Extremity Extremity Narrative: +1 pitting edema to the bilateral lower extremities is equal and symmetric; thisis chronic per patient Negative Homans' sign bilaterally Neuro oriented x3, CN's II-XII intact bilaterally and no sensory deficits noted Sensorium / Orientation: alert Psych mental status grossly normal Skin no rashes or lesions noted and No skin turgor normal Skin Narrative: Skin turgor is slightly increased General Skin Exam: Negative for jaundice or pallor MDM MDM MDM Narrative Medical decision making narrative: Patient arrived to the ER with stable vitals. He reported feeling generalized fatigue/weakness without obvious symptoms for it such as cough fever vomiting diarrhea or dysuria. In order to check for potential causes such as acute bloodloss anemia pneumonia thyroid disorder acute kidney injury or UTI basic blood work chest x-ray and urine sample were obtained. Chest x-ray showed no acute infiltrate. Kidney function is elevated at 1.77 but chart review reveals this is better than his previous with baseline typically above 2. TSH is normal going against thyroid dysfunction and he does not have any clinically significant electrolyte abnormalities such as severe hypokalemia or hypomagnesemia. The patient's urine does show changes consistent with infectionwith 50-100 white blood cells +2 bacteria and no signs of contamination. The urine was sent for culture and patient was started on Rocephin. On reevaluationthe patient is resting comfortably and vitals remained stable. I discussed withpatient potential admission based on his generalized fatigue/weakness. He states that as he now knows the cause of his symptoms that he feels that he is capable of caring for himself at home. He does not meet sepsis criteria nor does he have signs of ASIA and since he does not have those physical changesand he request to try initial treatment at home I will comply and he will be placed on Keflex and is otherwise safe for discharge. History & Record Review Discussion w/independent historian: Patient and Significant other Lab Data Attestation: I reviewed the patient's lab results. Labs: Laboratory Results - last 24 hr 11/19/24 11/19/24 23:10 23:41 WBC 7.3 RBC 4.14 L Hgb 13.4 Hct 40.4 MCV 97.6 H MCH 32.4 H MCHC 33.2 RDW Std Deviation 52.4 H RDW Coeff of Perla 14.6 Plt Count 233 MPV 8.8 Immature Gran % (Auto) 2.300 H Neut % (Auto) 65.1 Lymph % (Auto) 20.0 Hudson % (Auto) 9.5 Eos % (Auto) 2.1 Baso % (Auto) 1.0 Absolute Neuts (auto) 4.8 Absolute Lymphs (auto) 1.46 Nucleated RBC % 0 Sodium 138 Potassium 4.9 Chloride 97 L Carbon Dioxide 27.2 Anion Gap 13 BUN 26 H Creatinine 1.77 H Estim Creat Clear Calc 30.88 L Est GFR (MDRD) Non-Af 37 L BUN/Creatinine Ratio 14.4 Glucose 102 H Calcium 10.0 Magnesium 2.1 NT pro BNP II 521 TSH 1.790 Urine Color Yellow Urine Clarity Sl. Cloudy Urine pH 6.0 Ur Specific [place] 1.015 Urine Protein 30 H Urine Glucose (UA) Normal Urine Ketones Negative Urine Occult Blood 25 H Urine Nitrite Negative Urine Bilirubin Negative Urine Urobilinogen Normal Ur Leukocyte Esterase 500 H Urine RBC 0 SEEN Urine WBC 50-100 SEEN Ur Squamous Epith Cells 0 SEEN Urine Bacteria 2+ Urine Mucus 0 SEEN Radiography Diagnostic Testing: Clinical Impression(s) from Imaging Studies Chest X-Ray 11/19/24 23:20 IMPRESSION: Pulmonary vascular congestion in the setting of cardiomegaly. Reading Location: [place] [address] Chest x-ray as interpreted by the emergency medicine physician reveals mild pulmonary vascular congestion without acute infiltrate pneumothorax or pleural effusion Discharge Plan Triage Chief Complaint: Shortness of Breath ED Provider: Helio Corrales Dx/Rx/DC Orders Clinical Impression: UTI (urinary tract infection), Generalized weakness, Essential (primary) hypertension, CKD (chronickidney disease) stage 3, GFR 30-59 ml/min, Hypothyroidism, Diabetes mellitus type 2, insulin dependent Instructions: Urinary Tract Infections in Men, ED Weakness Uncertain Cause Prescriptions: New cephalexin 500 mg capsule 500 mg PO TID 7 Days Qty: 21 0RF No Action PreserVision AREDS 7,160 unit- 113 mg-100 unit tablet 1 tab PO BID Rx Instructions: administer with AM and PM meals (DME) Left AFO See Rx Instructions .Route .MEDSUPPLY Qty: 1 0RF Rx Instructions: As directed (DME) Compression stockings (10-20) See Rx Instructions .Route .MEDSUPPLY Qty: 2 0RF Rx Instructions: As directed carbidopa-levodopa [Sinemet] 25-100 mg tablet 2 tab PO TID Qty: 180 6RF Humulin 70/30 U-100 Insulin 100 unit/mL (70-30) suspension See Rx Instructions subcut BID Rx Instructions: subcutaneously twice a day; 28 units each AM, and 20 units each PM. cholecalciferol (vitamin D3) 5,000 UNIT capsule 5,000 unit PO DAILY Patient Comments: SUPPLIMENT finasteride 5 MG tablet 5 mg PO DAILY Patient Comments: PROSTATE aspirin 81 MG tablet,delayed release (DR/EC) 81 mg PO DAILY acetaminophen 500 MG tablet 1,000 mg PO Q6H PRN PRN (Reason: Pain Score 1-3/10) 0RF hydrocodone-acetaminophen 5-325 mg tablet 0.5 - 1 tab PO BID PRN PRN (Reason: pain) zinc acetate 50 mg (zinc) capsule 50 mg PO DAILY ferrous sulfate [Feosol] 325 mg (65 mg iron) tablet 325 mg PO DAILY cyanocobalamin (vitamin B-12) [Vitamin B-12] 1,000 mcg tablet 1,000 mcg PO DAILY ascorbic acid (vitamin C) [C-1000] 1,000 mg tablet 1 g PO DAILY folic acid 1 mg tablet 1 mg PO DAILY Qty: 30 0RF hydrocodone-acetaminophen 7.5-325 mg tablet 1 tab PO TID PRN PRN (Reason: pain) (DME) Elizabeth Figueroa See Rx Instructions .Route .MEDSUPPLY Qty: 1 0RF Rx Instructions: difficulty walking short distance. expires in 5 years (DME) pen needle, diabetic 32 gauge x 1/4 needle See Rx Instructions .ROUTE .MEDSUPPLY Qty: 100 2RF Rx Instructions: As directed levothyroxine 50 mcg tablet 50 mcg PO DAILY Qty: 90 3RF furosemide 40 mg tablet 40 mg PO DAILY Qty: 90 3RF escitalopram oxalate 10 mg tablet 10 mg PO DAILY Qty: 90 3RF Rx Instructions: Take 1/2 tablet for 4 days then increase to 1 tablet. pantoprazole 40 mg tablet,delayed release (DR/EC) See Rx Instructions .ROUTE .COMPLEX Qty: 90 3RF Dose Instruction: TAKE 1 TABLET BY MOUTH ONCE DAILY FOR REFLUX Rx Instructions: TAKE 1 TABLET BY MOUTH ONCE DAILY FOR REFLUX ranolazine 500 mg tablet extended release 12 hr 500 mg PO BID Qty: 180 3RF metformin 500 mg tablet 500 mg PO BIDCM Qty: 180 3RF isosorbide mononitrate 30 mg tablet extended release 24 hr 30 mg PO DAILY Qty: 90 3RF pravastatin 20 mg tablet 20 mg PO DAILY Qty: 90 3RF amlodipine 5 mg tablet 5 mg PO DAILY Qty: 90 3RF trazodone 50 mg tablet 50 mg PO QHS PRN PRN (Reason: insomnia) Qty: 60 1RF fludrocortisone 0.1 mg tablet See Rx Instructions PO .COMPLEX Qty: 28 2RF Rx Instructions: Take 1 tablet orally in the morning 6 days/week (Monday, Monday, Monday, , Monday, Monday) clopidogrel 75 mg tablet 75 mg PO DAILY Qty: 90 3RF Primary Care Provider: Keron Maciel Referrals: Keron Maciel MD [Primary Care Provider] - Activity Restrictions/Additional Instructions: Your workup today showed changes consistent with a urinary tract infection however there are no signs of systemic infection/sepsis. Take the antibiotic asdirected to resolve the infection. It will typically take 2 to 3 days for the antibiotic to take effect. If you develop a fever or have worseningof symptomsor any further concerns please return to the ER for repeat evaluation. Print Language: Malian Disposition Disposition: Home, Self Care What to do if you have Problems For any increased pain, shortness of breath, bleeding, nausea or vomiting, chestpain, or any unexpected problems, contact your Primary Care Provider. Call [facility] ([phone]) or report tothe closest Emergency Room. Call 911 if necessary. 11/20/24 0030 Cosigner Signature (if applicable): CC: Dr. Keron Maciel MD ~ Signed [facility]06-03-2025 Radiology Diagnostic study note [facility] Imaging Services [address] [place], [place] [address] Chest PA and Lateral MR#: [id number] Acct: [id number] Name: OLMAN SYED Rep #: [id number] : 1935 M 89 From: Johan Higgins MD PCP: Dr. Keron Maciel MD Status: REG ER Study:Chest PA and Lateral Date of Exam: 11/19/24 Exam# [id number] Ordering Dr: Sharon Corrales DO PROCEDURE: CHEST PA AND LATERAL 11/19/2024 REASON FOR EXAM: DYSPNEA TECHNIQUE: Frontal and lateral views of the chest. COMPARISON: 07/16/2023. FINDINGS: Prior sternotomy. The heart is enlarged. Pulmonary vascular congestion. No pleural effusion or pneumothorax. Partially visualized lumbar fixation. RAD/Chest PA and Lateral IMPRESSION: Pulmonary vascular congestion in the setting of cardiomegaly. Reading Location: [place] [address] CC: Dr. Keron Maciel MD; Helio Corrales DO ~ Life Cycle Assessment Analyst: Signed [facility]06-03-2025 Discharge summary Author Helio Corrales [facility] Note Date/Time November 20, 2024 12:30 am [facility] Medical Records Department [address] [place] [address] Emergency Department Summary 11/19/24 MR#: [id number] Acct: [id number] Name: OLMAN SYED Rep #:[id number] : 1935 89 From: Helio Corrales DO PCP: Dr. Keron Maciel MD Status:REG ER Location: ED HPI History of Present Illness Chief Complaint: Shortness of Breath Informant: patient and spouse/S.O. Narrative Narrative: Patient is 89-year-old male with past medical history of hypertension hyperlipidemia insulin-dependent diabetes and Parkinson's disease. Patient states for the last 2 to 3 days he has had feeling of generalized weakness/fatigue. He states he has not noticed fevers chills nausea vomiting diarrhea or dysuria. He states has been no known sick contact. He reports there has been no chest pain. He states that he may have noticed slight shortness of breath but ultimately he just feels rundown tired and fatigued and without any obvious reason for it or improvement of symptoms he presents for evaluation. [facility] Medical History Parkinson's disease Vasovagal episode Obesity (BMI 30-39.9) [...] flank pain Anemia Atherosclerotic heart disease of [place] coronary artery without angina pectoris 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 Palpitations Nonrheumatic tricuspid (valve) insufficiency HLD (hyperlipidemia) Chest pain Appendicitis Benign prostatic hypertrophy GERD (gastroesophageal reflux disease) Nephrolithiasis Diabetes mellitus type 2 in obese Home Medications ?Medication ?Instructions ?Recorded ?Last Taken ?Type cholecalciferol (vitamin D3) 125 5,000 unit PO DAILY v itamin 06/29/15 02/10/20 History mcg (5,000 unit) capsule finasteride 5 mg tablet 5 mg PO DAILY prostate 06/2910/29/21 History aspirin 81 mg tablet,delayed 81 mg PO DAILY heart heal th 07/24/15 10/29/21 History release acetaminophen 500 mg tablet 1,000 mg (2 x 500 mg) PO Q 6H PRN 02/19/20 Unknown Rx PRN Pain Score 1-3/10 Handi cap Placard #1 ea 10/14/20 Unknown Rx vitamins A,C,P-ftyu-bukcek 2,148 1 tab PO BID 12/17/20 Unknown History mcg-113 mg-45 mg-17.4 mg tablet (PreserVision AREDS) pen needle, diabetic 32 gauge x #100 ea 12/25/20 Unkno wn Rx 1/ Compression stockings (04-07) #2 ea 01/04/24 Unknown R x Left AFO #1 ea 01/04/24 Unknown Rx levothyroxine 50 mcg tablet 50 mcg PO DAILY thyroid #9 0 tabs 02/01/24 Unknown Rx escitalopram oxalate 10 mg tablet 10 mg PO DAILY #90 t abs 03/05/24 Unknown Rx furosemide 40 mg tablet 40 mg PO DAILY #90 TABLETS 0 03/05/24 Unknown Rx pantoprazole 40 mg tablet,delayed See Rx Instructions .Route 03/05/24 Unknown Rx release .COMPLEX #90 tabs ranolazine 500 mg tablet,extended 500 mg PO BID #180 t abs 03/12/24 Unknown Rx release,12 hr metformin 500 mg tablet 500 mg PO BIDCM diabetes #18 0 tabs 03/19/24 Unknown Rx isosorbide mononitrate 30 mg 30 mg PO DAILY #90 TABLET S 04/01/24 Unknown Rx tablet,extended release 24 hr ascorbic acid (vitamin C) 1,000 mg 1 g PO DAILY Unknown History tablet (C-1000) cyanocobalamin (vitamin B-12) 1,000 mcg PO DAILY 06/15 Unknown History 1,000 mcg tablet (Vitamin B-12) ferrous sulfate 325 mg (65 mg 325 mg PO DAILY 06/15/24 Unknown History iron) tablet (Feosol) folic acid 1 mg tablet 1 mg PO DAILY #30 tabs 06/15 Unknown Rx hydrocodone-acetaminophen 5-325mg 0.5 - 1 tab PO BID P RN PRN pain 06/15/24 Unknown History 5mg-325mg zinc acetate 50 mg (zinc) capsule 50 mg PO DAILY 06/15 Unknown History insulin human U-100 NPH-regulr See Rx Instructions sub cut BID 06/24/24 Unknown History 70-30 mix 100 unit/mL subcutaneous susp (Humulin 70/30 U-100 Insulin) pravastatin 20 mg tablet 20 mg PO DAILY cholesterol # 90 tabs 07/23/24 Unknown Rx carbidopa 25 mg-levodopa 100 mg 2 tab PO TID #180 tabs 08/01/24 Unknown Rx tablet (Sinemet) amlodipine 5 mg tablet 5 mg PO DAILY BP #90 tabs Unknown Rx trazodone 50 mg tablet 50 mg PO QHS PRN PRN insomni a #60 10/03/24 Unknown Rx tabs fludrocortisone 0.1 mg tablet See Rx Instructions PO . COMPLEX 10/23/24 Unknown Rx #28 tabs clopidogrel 75 mg tablet 75 mg PO DAILY for cholester ol #90 11/08/24 Unknown Rx TABLETS hydrocodone 7.5 mg-acetaminophen 1 tab PO TID PRN PRN pain 11/19/24 Unknown History 325 mg tablet cephalexin 500 mg capsule 500 mg PO TID 7 days #21 cap s 11/20/24 Unknown Rx Allergy/AdvReac Type Severity Reaction Status Date / Time lisinopril Allergy Mild Cough Verified 11/19/24 22:48 naproxen (From Aleve) Allergy HIVES Verified 11/19/24 22:48 losartan AdvReac Intermediate Jitters Verified 11/19/24 22:48 metoprolol AdvReac Intermediate Jitters Verified 11/19/24 22:48 pioglitazone HCl (From Actos) AdvReac Mild Upset Verified 11/19/24 22:48 Stomach Family History Mother CAD (coronary artery disease) CVA (cerebral vascular accident) Brother CAD (coronary artery disease) Myocardial infarction Diabetes Heart disease Daughter Asthma Father Cancer bone cancer Sister Breast cancer Asthma Diabetes Heart disease Sister Cardiomyopathy Surgical History History of right and left heart catheterization (07/02/18) History of coronary artery stent placement (07/01/15) History of left heart catheterization (11/01/21) History of lymph node biopsy History of appendectomy History of back surgery Social History household members: spouse housing: house Smoking Status: Former smoker pack-years: 2 how long ago did patient quit smokin+ years ago alcohol intake: former substance use type: does not use caffeine: Yes Type: coffee Number of servings: 2 what type of physical activity do you participate in: none seatbelt use: always do you feel safe at home: Yes ROS ROS ED Constitutional Constitutional ED: Reports other Details: Positive generalized fatigue/weakness ; Denies chills or fever(s) Eyes Eyes: Denies change in vision ENT ENT ED: Denies rhinorrhea or sore throat Cardiovascular Cardiovascular: Denies chest pain, palpitations or racing heartbeat Respiratory/Chest Respiratory/Chest: Reports dyspnea; Denies cough or dyspnea on exertion Gastrointestinal Gastrointestinal: Denies abdominal pain, diarrhea, melena, nausea or vomiting Genitourinary Genitourinary ED: Denies dysuria or hematuria Musculoskeletal Musculoskeletal: Denies myalgias Integumentary Denies rash Neurologic Neurologic: Reports weakness; Denies headache(s) Hematologic/Lymphatic Hematologic/Lymphatic: Denies easy bleeding or easy bruising Allergic/Immunologic Allergic/Immunologic ED: Denies mouth swelling or tongue swelling EXAM Physical Exam Const Vital Signs: 11/19/24 22:48 11/19/24 22:50 11/19/24 23:02 Temperature 97.6 F L 97.6 F L Temperature Source Oral Oral Pulse Rate 80 80 Respiratory Rate 26 H 26 H Respiratory Effort Short of Breath Respiratory Pattern Tachypnea Blood Pressure 183/97 H 183/97 H Blood Pressure Mean 125 125 Pulse Ox 95 95 Oxygen Delivery Method Room Air Room Air Room Air 11/19/24 23:50 Temperature 97.6 F L Temperature Source Oral Pulse Rate 67 Respiratory Rate 22 H Respiratory Effort Respiratory Pattern Blood Pressure 165/81 H Blood Pressure Mean 109 Pulse Ox 94 Oxygen Delivery Method Room Air Positive well nourished, well developed and obese General Appearance ED: well developed; Negative for pallor Nutritional Appearance: obese HEENT Reports dry mucous membranes HEENT Narrative: Mucous membranes are mildly dry and tacky No tongue or lip swelling no oral lesions no airway edema or compromise; no secondary findings in the posterior pharynx to suggest infection Mouth ED: Yes dry mucous membranes Mouth: dry mucous membranes Eyes PERRL and EOMs intact bilaterally General Eye ED: Negative for pale conjunctiva or scleral icterus Neck supple and no JVD Neck Narrative: No nuchal rigidity or meningeal signs Resp normal respiratory effort and clear to auscultation bilaterally Resp Narrative: No nasal flaring retractions tachypnea or accessory muscle use Cardio regular rate and regular rhythm Rate: other Other Details: Radial and carotid pulses are equal and symmetric GI normal to inspection, nondistended, normoactive bowel sounds, non-tender, non-distended and no masses GI Narrative: No voluntary guarding or rigidity or pulsatile mass Auscultation: normoactive bowel sounds Palpation: soft Extremity Extremity Narrative: +1 pitting edema to the bilateral lower extremities is equal and symmetric; thisis chronic per patient Negative Homans' sign bilaterally Neuro oriented x3, CN's II-XII intact bilaterally and no sensory deficits noted Sensorium / Orientation: alert Psych mental status grossly normal Skin no rashes or lesions noted and No skin turgor normal Skin Narrative: Skin turgor is slightly increased General Skin Exam: Negative for jaundice or pallor MDM MDM MDM Narrative Medical decision making narrative: Patient arrived to the ER with stable vitals. He reported feeling generalized fatigue/weakness without obvious symptoms for it such as cough fever vomiting diarrhea or dysuria. In order to check for potential causes such as acute bloodloss anemia pneumonia thyroid disorder acute kidney injury or UTI basic blood work chest x-ray and urine sample were obtained. Chest x-ray showed no acute infiltrate. Kidney function is elevated at 1.77 but chart review reveals this is better than his previous with baseline typically above 2. TSH is normal going against thyroid dysfunction and he does not have any clinically significant electrolyte abnormalities such as severe hypokalemia or hypomagnesemia. The patient's urine does show changes consistent with infectionwith 50-100 white blood cells +2 bacteria and no signs of contamination. The urine was sent for culture and patient was started on Rocephin. On reevaluationthe patient is resting comfortably and vitals remained stable. I discussed withpatient potential admission based on his generalized fatigue/weakness. He states that as he now knows the cause of his symptoms that he feels that he is capable of caring for himself at home. He does not meet sepsis criteria nor does he have signs of ASIA and since he does not have those physical changes and he request to try initial treatment at home I will comply and he will be placed on Keflex and is otherwise safe for discharge. History & Record Review Discussion w/independent historian: Patient and Significant other Lab Data Attestation: I reviewed the patient's lab results. Labs: Laboratory Results - last 24 hr 11/19/24 11/19/24 23:10 23:41 WBC 7.3 RBC 4.14 L Hgb 13.4 Hct 40.4 MCV 97.6 H MCH 32.4 H MCHC 33.2 RDW Std Deviation 52.4 H RDW Coeff of Perla 14.6 Plt Count 233 MPV 8.8 Immature Gran % (Auto) 2.300 H Neut % (Auto) 65.1 Lymph % (Auto) 20.0 Hudson % (Auto) 9.5 Eos % (Auto) 2.1 Baso % (Auto) 1.0 Absolute Neuts (auto) 4.8 Absolute Lymphs (auto) 1.46 Nucleated RBC % 0 Sodium 138 Potassium 4.9 Chloride 97 L Carbon Dioxide 27.2 Anion Gap 13 BUN 26 H Creatinine 1.77 H Estim Creat Clear Calc 30.88 L Est GFR (MDRD) Non-Af 37 L BUN/Creatinine Ratio 14.4 Glucose 102 H Calcium 10.0 Magnesium 2.1 NT pro BNP II 521 TSH 1.790 Urine Color Yellow Urine Clarity Sl. Cloudy Urine pH 6.0 Ur Specific [place] 1.015 Urine Protein 30 H Urine Glucose (UA) Normal Urine Ketones Negative Urine Occult Blood 25 H Urine Nitrite Negative Urine Bilirubin Negative Urine Urobilinogen Normal Ur Leukocyte Esterase 500 H Urine RBC 0 SEEN Urine WBC 50-100 SEEN Ur Squamous Epith Cells 0 SEEN Urine Bacteria 2+ Urine Mucus 0 SEEN Radiography Diagnostic Testing: Clinical Impression(s) from Imaging Studies Chest X-Ray 11/19/24 23:20 IMPRESSION: Pulmonary vascular congestion in the setting of cardiomegaly. Reading Location: [place] [address] Chest x-ray as interpreted by the emergency medicine physician reveals mild pulmonary vascular congestion without acute infiltrate pneumothorax or pleural effusion Discharge Plan Triage Chief Complaint: Shortness of Breath ED Provider: Helio Corrales Dx/Rx/DC Orders Clinical Impression: UTI (urinary tract infection), Generalized weakness, Essential (primary) hypertension, CKD (chronic kidney disease) stage 3, GFR 30-59 ml/min, Hypothyroidism, Diabetes mellitus type 2, insulin dependent Instructions: Urinary Tract Infections in Men, ED Weakness Uncertain Cause Prescriptions: New cephalexin 500 mg capsule 500 mg PO TID 7 Days Qty: 21 0RF No Action PreserVision AREDS 7,160 unit- 113 mg-100 unit tablet 1 tab PO BID Rx Instructions: administer with AM and PM meals (DME) Left AFO See Rx Instructions .Route .MEDSUPPLY Qty: 1 0RF Rx Instructions: As directed (DME) Compression stockings (10-20) See Rx Instructions .Route .MEDSUPPLY Qty: 2 0RF Rx Instructions: As directed carbidopa-levodopa [Sinemet] 25-100 mg tablet 2 tab PO TID Qty: 180 6RF Humulin 70/30 U-100 Insulin 100 unit/mL (70-30) suspension See Rx Instructions subcut BID Rx Instructions: subcutaneously twice a day; 28 units each AM, and 20 units each PM. cholecalciferol (vitamin D3) 5,000 UNIT capsule 5,000 unit PO DAILY Patient Comments: SUPPLIMENT finasteride 5 MG tablet 5 mg PO DAILY Patient Comments: PROSTATE aspirin 81 MG tablet,delayed release (DR/EC) 81 mg PO DAILY acetaminophen 500 MG tablet 1,000 mg PO Q6H PRN PRN (Reason: Pain Score 1-3/10) 0RF hydrocodone-acetaminophen 5-325 mg tablet 0.5 - 1 tab PO BID PRN PRN (Reason: pain) zinc acetate 50 mg (zinc) capsule 50 mg PO DAILY ferrous sulfate [Feosol] 325 mg (65 mg iron) tablet 325 mg PO DAILY cyanocobalamin (vitamin B-12) [Vitamin B-12] 1,000 mcg tablet 1,000 mcg PO DAILY ascorbic acid (vitamin C) [C-1000] 1,000 mg tablet 1 g PO DAILY folic acid 1 mg tablet 1 mg PO DAILY Qty: 30 0RF hydrocodone-acetaminophen 7.5-325 mg tablet 1 tab PO TID PRN PRN (Reason: pain) (DME) Handi cap Placard See Rx Instructions .Route .MEDSUPPLY Qty: 1 0RF Rx Instructions: difficulty walking short distance. expires in 5 years (DME) pen needle, diabetic 32 gauge x 1/4 needle See Rx Instructions .ROUTE .MEDSUPPLY Qty: 100 2RF Rx Instructions: As directed levothyroxine 50 mcg tablet 50 mcg PO DAILY Qty: 90 3RF furosemide 40 mg tablet 40 mg PO DAILY Qty: 90 3RF escitalopram oxalate 10 mg tablet 10 mg PO DAILY Qty: 90 3RF Rx Instructions: Take 1/2 tablet for 4 days then increase to 1 tablet. pantoprazole 40 mg tablet,delayed release (DR/EC) See Rx Instructions .ROUTE .COMPLEX Qty: 90 3RF Dose Instruction: TAKE 1 TABLET BY MOUTH ONCE DAILY FOR REFLUX Rx Instructions: TAKE 1 TABLET BY MOUTH ONCE DAILY FOR REFLUX ranolazine 500 mg tablet extended release 12 hr 500 mg PO BID Qty: 180 3RF metformin 500 mg tablet 500 mg PO BIDCM Qty: 180 3RF isosorbide mononitrate 30 mg tablet extended release 24 hr 30 mg PO DAILY Qty: 90 3RF pravastatin 20 mg tablet 20 mg PO DAILY Qty: 90 3RF amlodipine 5 mg tablet 5 mg PO DAILY Qty: 90 3RF trazodone 50 mg tablet 50 mg PO QHS PRN PRN (Reason: insomnia) Qty: 60 1RF fludrocortisone 0.1 mg tablet See Rx Instructions PO .COMPLEX Qty: 28 2RF Rx Instructions: Take 1 tablet orally in the morning 6 days/week (Monday, Monday, Monday, , Monday, Monday) clopidogrel 75 mg tablet 75 mg PO DAILY Qty: 90 3RF Primary Care Provider: Keron Maciel Referrals: Keron Maciel MD [Primary Care Provider] - Activity Restrictions/Additional Instructions: Your workup today showed changes consistent with a urinary tract infection however there are no signs of systemic infection/sepsis. Take the antibiotic asdirected to resolve the infection. It will typically take 2 to 3 days for the antibiotic to take effect. If you develop a fever or have worsening of symptomsor any further concerns please return to the ER for repeat evaluation. Print Language: Malian Disposition Disposition: Home, Self Care What to do if you have Problems For any increased pain, shortness of breath, bleeding, nausea or vomiting, chestpain, or any unexpected problems, contact your Primary Care Provider. Call [facility] ([phone]) or report to the closest Emergency Room. Call 911 if necessary. 11/20/24 0030 <Electronically signed by Helio Corrales DO> Cosigner Signature (if applicable): CC: Dr. Keron Maciel MD ~ Signed [facility] Work Phone: 1(161) 219-513103-21-2025 Instructions* Patient Instructions* Barbie Nova - 09/06/2024 1:58 PM EDT [...] it. Apply a bandage and wear a differentpair of shoes. Take Care of Your Toenails Cut toenails after bathing, when they are soft. Cut toenails straight across and smooth with a nail file. Avoid cutting into the corners of toes. Do not cut cuticles. If you have neuropathy (or decreased sensation in your feet) a field test engineer should always cut your toenails. Be Careful [...] make sure there are no foreign objects orrough areas. Avoid tight socks. Wear natural-fiber socks [...] Go to your health care provider or field test engineer to treat these conditions. Can use tubigrip for lower extremity swelling. Apply during the day and can remove at night [facility]25 NoteHNO ID: [id number] Author: BARBIE NOVA, ? Service: ? Author [...] to RTC in 3-[address] [facility]03-21-2025 History of Present illness Narrative* Barbie Nova - 09/06/2024 1:52 PM EDT Last saw pcp: not in chart Subjective: [...] importance of avoiding barefoot walking, wearing good shoesand inspection of feet. I discussed how this [...] RTC in 3-4 months. Barbie Nova DPM * Cintia Izquierdo MA Student - 09/06/2024 1:11 PM EDT AMB ROOMING INTAKE FLOWSHEET DATA Patient presents with: Left Foot - Established Patient, Follow Up, Diabetic Foot Care Right Foot - Established Patient, Follow Up, Diabetic Foot Care Cintia Izquierdo MA Student documented in this encounterSelect [facility] [place]-2025 NoteHNO ID: [id number] Author: CINTIA IZQUIERDO MA Student Service: ? Author Type: Student Type: Progress Notes Filed: 09/06/2024 14:17 Note Text: AMB ROOMING INTAKE FLOWSHEET DATA Patient presents with: Left Foot - Established Patient, Follow Up, Diabetic Foot Care Right Foot - Established Patient, Follow Up, Diabetic Foot Care [facility]quierdo [facility] Evaluation note* Diagnosis Onset Date Resolution Status Admit Date Left foot drop acute July 202024 1:54pm Parkinson's disease acute Febru marli 2024 1:54pm Mild cognitive impairment chronic August 01, 2024 1:54pm Orthostatic hypotension resolved F ebruary 2024 1:54pm [facility] Work Phone: [phone]) [phone] Evaluation note* Diagnosis Onset Date Resolution Status Admit Date Left foot drop acute July 202024 1:54pm Parkinson's disease acute Febru 2024 1:54pm Mild cognitive impairment chronic August 01, 2024 1:54pm Orthostatic hypotension resolved F eb2024 1:54pm Diabetes mellitus type 2, insulin dependent acute November 25, 2024 11:01am Generalized weakness acute November 25, 2024 11:01am Atherosclerotic heart diseas e of [place] coronary artery without angina pectoris chronic November 11:01am CKD (chronic kidney disease) stage 3, GFR 30-59 ml/min chronic November 252024 11:01am Essential (primary) hypertension chronic November 25, 2024 1 1:01am [facility] Work Phone: 1(778) 999-978502-06-2025 Evaluation note* Diagnosis Onset Date Resolution Status Admit Date Diabetes mellitus type 2 in obese acute July 25 2:30pm Parkinson's disease acute Febru 2024 2:30pm Polyneuropathy acute July 252024 2:30pm Vasovagal episode acute uar 2024 2:30pm Umave-[id number] kidney injury chron ic July 25, 2024 2:30pm Atherosclerotic heart diseas e of [place] coronary artery without angina pectoris chronic July 25, 2024 2:30pm CKD (chronic kidney disease) stage 3, GFR 30-59 ml/min chronic 2024 2:30pm Essential (primary) hypertension chronic July 25 2:30pm Obesity chronic July 25, 2024 2:30pm DANYELL (obstructive sleep apnea) chroni c July 25, 2024 2:30pm Left foot drop acute July 202024 1:54pm Parkinson's disease acute Febru 2024 1:54pm Mild cognitive impairment chronic August 01, 2024 1:54pm Orthostatic hypotension resolved F ebruary 2024 1:54pm [facility] Work Phone: 1(387) 215-193312-29-2024 [facility]12-19-2024 NoteHNO ID: [id number] Author: BARBIE NOVA, ? Service: ? Author [...] to RTC in 3-[address] [facility]12-19-2024 History of Present illness Narrative* Barbie Nova - 06/06/2024 9:56 AM EST Last saw pcp: not in chart Subjective: [...] toes when tested with the 5.07 SWM bilateral.Vibratory sensation is decreased at the hallux IPJ [...] diabetic foot care along with proper diet andkeeping their blood sugar under control to prevent complications. Stressed the importance of avoiding barefoot walking, wearing good shoes and inspection of feet. Small porokeratosis reduced with 15 blade as courtesy. Patient is to RTC in 3-4 months. Barbie Nova DPM * Rosita Garner RN - 06/06/2024 9:44 AM EST Patient presents with: Left Foot - Established Patient, Follow Up, Diabetic Foot Care Right Foot - Established Patient, Follow Up, Diabetic Foot Care Patient presents for follow up diabetic foot/nail care. [facility] 02/29/24 documented in this encounterSelect [facility] [place]-19-[facility] Instructions* Patient Instructions* Barbie Nova - 06/06/2024 9:56 AM EST [...] it. Apply a bandage and wear a differentpair of shoes. Take Care of Your Toenails Cut toenails after bathing, when they are soft. Cut toenails straight across and smooth with a nail file. Avoid cutting into the corners of toes. Do not cut cuticles. If you have neuropathy (or decreased sensation in your feet) a field test engineer should always cut your toenails. Be Careful [...] make sure there are no foreign objects orrough areas. Avoid tight socks. Wear natural-fiber socks [...] Go to your health care provider or field test engineer to treat these conditions. documented in this encounterSelect [facility] [place]12-19-2024 NoteHNO ID: [id number] Author: ROSITA GARNER, RN Service: ? Author Type: Registered Nurse Type: Progress Notes Filed: 06/06/2024 10:22 Note Text: Patient presents with: Left Foot - Established Patient, Follow Up, Diabetic Foot Care Right Foot - Established Patient, Follow Up, Diabetic Foot Care Patient presents for follow up diabetic foot/nail care. [facility]24[facility] NoteHNO ID: [id number] Author: BARBIE NOVA, ? Service: ? Author [...] Objective: Patient presents to clinic ambulating in [facility] Vasc: DP and PT pulses are [...] to RTC in 3-[address]. [address] [facility]09-12-2024 History of Present illness Narrative* Rohini Barbie - 02/29/2024 1:53 PM EDT Last time saw pcp: not in chart [...] Objective: Patient presents to clinic ambulating in sneakers Vasc: DP and PT pulses are palpable bilateral. CFT is less than 5 seconds bilateral. Skin temperature is warm to cool proximal to distal bilateral. There is mild edema or varicosities noted. Neuro: Protective sensation is intact to the foot and toes when tested with the 5.07 SWM bilateral.Vibratory sensation is decreased at the hallux IPJ [...] RTC in 3-4 months. Barbie Nova DPM * Rosita Garner RN - 02/29/2024 1:38 PM EDT Patient presents with: Left Foot - Established Patient, Follow Up, Diabetic Foot Check Right Foot - Established Patient, Follow Up, Diabetic Foot Check Patient presents for follow up diabetic foot/nail care. Due for diabetic foot exam. [facility] 11/16/23 documented in this encounterSelect [facility] [place]-12-2024 NoteHNO ID: [id number] Author: ROSITA GARNER RN Service: ? Author Type: Registered Nurse Type: Progress Notes Filed: 02/29/2024 14:01 Note Text: Patient presents with: Left Foot - Established Patient, Follow Up, Diabetic Foot Check Right Foot - Established Patient, Follow Up, Diabetic Foot Check Patient presents for follow up diabetic foot/nail care. Due for diabetic foot exam. [facility] 11/16/23[facility]30[facility] Instructions* Patient Instructions* Barbie Nova - 11/16/2023 1:21 PM EDT [...] it. Apply a bandage and wear a differentpair of shoes. Take Care of Your Toenails Cut toenails after bathing, when they are soft. Cut toenails straight across and smooth with a nail file. Avoid cutting into the corners of toes. Do not cut cuticles. If you have neuropathy (or decreased sensation in your feet) a field test engineer should always cut your toenails. Be Careful [...] make sure there are no foreign objects orrough areas. Avoid tight socks. Wear natural-fiber socks [...] Go to your health care provider or field test engineer to treat these conditions. documented in this encounterSelect [facility] [place]-30-[facility]24 History of Present illness Narrative* Barbie Nova - 11/16/2023 1:10 PM EDT Last saw pcp: 07/27/23 Subjective: Patient presents [...] toes when tested with the 5.07 SWM bilateral.Vibratory sensation is absent at the hallux IPJ [...] diabetic foot care along with proper diet andkeeping their blood sugar under control to prevent complications. Discussed the importance of avoiding barefoot walking, wearing diabetic shoes and inspection of feet Past history of callus. No callus today. Continue with lotion and diabetic shoe Patient is to RTC in 3-4 months. Barbie Nova DPM * Dinorah Dempsey LPN - 11/16/2023 1:07 PM EDT AMB ROOMING INTAKE FLOWSHEET DATA Patient presents with: Left Foot - Established Patient, Diabetic Foot Care Right Foot - Established Patient, Diabetic Foot Care Dinorah Dempsey LPN documented in this encounterSelect [facility] [place]-12-2024 Miscellaneous Notes* Addendum Note - Barbie Nova - 07/31/2023 1:32 PM ESTAddended by: BARBIE NOVA DPM on: 07/31/2023 01:32 PM Modules accepted: Orders documented in this encounterSelect [facility] [place]-12-2024 Instructions* Patient Instructions* Barbie Nova - 07/31/2023 1:15 PM EST [...] it. Apply a bandage and wear a differentpair of shoes. Take Care of Your Toenails Cut toenails after bathing, when they are soft. Cut toenails straight across and smooth with a nail file. Avoid cutting into the corners of toes. Do not cut cuticles. If you have neuropathy (or decreased sensation in your feet) a field test engineer should always cut your toenails. Be Careful [...] make sure there are no foreign objects orrough areas. Avoid tight socks. Wear natural-fiber socks [...] Go to your health care provider or field test engineer to treat these conditions. documented in this encounterSelect [facility] [place]24 History of Present illness Narrative* Barbie Nova - 07/31/2023 1:03 PM EST Last time saw pcp: not present in chart Initial Office Visit Subjective: This 87 year old male presents to clinic for diabetic foot check. Patient has the following complaints: right great toenail pain. Patient admits to being diabetic for 23 years now. Patient +B/T/N in feet at this time. Patient -pain in legs when walking. No other pedal complaints at thistime. 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 (Patient not taking: Reported on [...] SPEC WHEN PFRMD 01/29/15 Colonoscopy ECHO 06/24/2015 [facility] - see scanned documents ESOPHAGOGASTRODUODENOSCOPY TRANSORAL DIAGNOSTIC [...] palpation performed. Nails 1-5 b/l are painful, discolored- yellow, thick, crumbly, dystrophic and with subungal debris. [...] given neurpoathy and callus Barbie Nova DPM * Dinorah Dempsey LPN - 07/31/2023 12:56 PM EST AMB ROOMING INTAKE FLOWSHEET DATA Risk Screening Do you have concerns about personal safety or safety in the home?: No Patient presents with: Left Foot - Established Patient, Diabetic Foot Care Right Foot - Established Patient, Diabetic Foot Care Dinorah Dempsey LPN documented in this encounterSelect [facility] [place]06-23-2023 Discharge summary Author Mark Aggarwal [facility] December 09, 2022 2:12pm Note Date/Time December 09, 2022 2:[address] [facility] [address] [place] [address] [address] [place] [address] / REHABILITATION SERVICES DISCHARGE SUMMARY MR#: [id number] Acct: [id number] Name: OLMAN SYED Rep #: [id number] : 1935 87 From: Mark Aggarwal PT, ATC Referring Dr.: Dr. Rich Padgett MD Status: REG R Insurance: [facility] SELF PAY INSURANCE It has been my [...] please feel free to call me at [phone]. Thank you for the referral of thispatient. Sincerely, Mark Aggarwal, PT, ATC <Electronically signed by Mark Aggarwal PT, ATC> 12/09/22 1412 CC: Dr. Keron Maciel MD; Dr. Rich Padgett MD ~ [facility] Signed [facility] Work Phone: [phone]) 504-205406-23-2023 Discharge summary Author Kalia Hendrickson [facility] December 09, 2022 1:32pm Note Date/Time December 09, 2022 1:[address] [facility] [address] [place] [address] [address] [place] [address] / REHABILITATION SERVICES DISCHARGE SUMMARY MR#: [id number] Acct: [id number] Name: OLMAN SYED Rep #: [id number] : 1935 87 From: Kalia HARRELL T Referring Dr.: Dr. Rich Padgett MD Status: REG RCR [facility] It has been my [...] please feel free to call me at [phone]. Thank you for the referral of thispatient. [...] <Electronically signed by Kalia Hendrickson DPT> 12/09/22 9507 CC: Dr. Keron Maciel MD; Dr. Rich Padgett MD ~ [facility] Signed [facility] Work Phone: [phone] 285-983110-08-2018 History of Past illness Narrative* Problem Noted [...] of this encounter (statuses as of 07/31/2023) [facility]10-08-2018 History of Past illness Narrative* Problem Noted [...] of this encounter (statuses as of 08/01/2023) [facility]01-13-2016 Evaluation note* Diagnosis Onset Date Resolution Status Atherosclerotic heart diseas e of [place] coronary artery without angina pectoris chronic Essential (primary) hypertension chronic History of coronary artery stent placement June chronic Shortness of breath acute Body mass index (BMI) 40.0-44.9, adult chronic CKD (chronic kidney disease) stage 3, GFR 30-59 ml/min chronic Diabetes mellitus chronic Essential (primary) hypertension chronic HLD (hyperlipidemia) chronic Iron deficiency anemia chron ic DANYELL (obstructive sleep apnea) chronic 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 [facility] Work Phone: [phone]) 837-480401-13-2016 Evaluation note* Diagnosis Onset Date Resolution Status Atherosclerotic heart diseas e of [place] coronary artery without angina pectoris chronic Essential (primary) hypertension chronic History of coronary artery stent placement June chronic HLD (hyperlipidemia) chronic Cardiomyopathy acute Leg swelling acute Obesity acute Polyneuropathy acute 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 CKD (chronic kidney disease) stage 3, GFR 30-59 ml/min chronic Diabetes mellitus chronic Essential (primary) hypertension chronic History of coronary artery stent placement June chronic HLD (hyperlipidemia) chronic DANYELL (obstructive sleep apnea) chronic Parkinson's disease chronic Cardiac arrhythmia acute Abnormality of gait and mobility chronic 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 Mild cognitive impairment ch ronic Parkinson's disease chronic Diabetes mellitus [facility] Work Phone: Evaluation note* Diagnosis Onset Date Resolution Status B12 nutritional deficiency a cute 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 disease acut e Mild cognitive impairment ac tolowa dee-ni' Parkinson's disease acute Polyneuropathy acute DANYELL (obstructive sleep apnea) chronic Obesity acute Polyneuropathy acute Diabetes mellitus chronic Essential (primary) hypertension chronic HLD (hyperlipidemia) chronic 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 disease acut e Mild cognitive impairment ac tolowa dee-ni' Parkinson's disease acute Polyneuropathy acute B12 nutritional deficiency a cute 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 disease acut e Fungal skin infection acute Obesity acute Atherosclerotic heart diseas e of [place] coronary artery without angina pectoris chronic Body mass index (BMI) 40.0-44.9, adult chronic CKD (chronic kidney disease) stage 3, GFR 30-59 ml/min chronic Diabetes mellitus chronic Essential (primary) hypertension chronic HLD (hyperlipidemia) [facility] Work Phone: Evaluation note* Diagnosis Onset Date Resolution Status B12 nutritional deficiency a cute 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 disease acut e Mild cognitive impairment ac tolowa dee-ni' Parkinson's disease acute Polyneuropathy acute DANYELL (obstructive sleep apnea) chronic Obesity acute Polyneuropathy acute Diabetes mellitus chronic Essential (primary) hypertension chronic HLD (hyperlipidemia) chronic 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 disease acut e Mild cognitive impairment ac tolowa dee-ni' Parkinson's disease acute Polyneuropathy acute B12 nutritional deficiency a cute 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 disease acut e Fungal skin infection acute Obesity acute Atherosclerotic heart diseas e of [place] coronary artery without angina pectoris chronic Body mass index (BMI) 40.0-44.9, adult chronic CKD (chronic kidney disease) stage 3, GFR 30-59 ml/min chronic Diabetes mellitus chronic Essential (primary) hypertension chronic HLD (hyperlipidemia) chronic Atherosclerotic heart diseas e of [place] coronary artery without angina pectoris chronic Essential (primary) hypertension chronic History of coronary artery stent placement June [facility] Work Phone: Evaluation note* Diagnosis Onset Date Resolution Status 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 disease acut e Mild cognitive impairment ac tolowa dee-ni' Parkinson's disease acute Polyneuropathy acute B12 nutritional deficiency a cute 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 disease acut e Fungal skin infection acute Obesity acute Atherosclerotic heart diseas e of [place] coronary artery without angina pectoris chronic Body mass index (BMI) 40.0-44.9, adult chronic CKD (chronic kidney disease) stage 3, GFR 30-59 ml/min chronic Diabetes mellitus chronic Essential (primary) hypertension chronic HLD (hyperlipidemia) chronic Atherosclerotic heart diseas e of [place] coronary artery without angina pectoris chronic Essential (primary) hypertension chronic History of coronary artery stent placement June [facility] Work Phone: Evaluation note* Diagnosis Onset Date [...] block chronic Atherosclerotic heart diseas e of [place] coronary artery without angina pectoris chronic Essential (primary) hypertension chronic History of coronary artery stent placement June chronic HLD (hyperlipidemia) [facility] Work Phone: Evaluation note* Diagnosis Onset Date Resolution Status Obesity acute DANYELL (obstructive sleep apnea) chronic Atherosclerotic heart diseas e of [place] coronary artery without angina pectoris chronic Essential (primary) hypertension chronic History of coronary artery stent placement June chronic HLD (hyperlipidemia) [facility] Work Phone: Evaluation note* Diagnosis Onset Date Resolution Status Obesity acute DANYELL (obstructive sleep apnea) chronic Atherosclerotic heart diseas e of [place] coronary artery without angina pectoris chronic Essential (primary) hypertension chronic History of coronary artery stent placement June chronic HLD (hyperlipidemia) chronic Cardiomyopathy acute Leg swelling acute Obesity acute Polyneuropathy acute 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 CKD (chronic kidney disease) stage 3, GFR 30-59 ml/min chronic Diabetes mellitus chronic Essential (primary) hypertension chronic History of coronary artery stent placement June chronic HLD (hyperlipidemia) chronic DANYELL (obstructive sleep apnea) chronic Parkinson's disease [facility] Work Phone: Evaluation note* Diagnosis Onychomycosis- Primary Dermatophytosis of nail Pain in toe of left foot Pain in limb Pain in toe of right foot Pain in limb Xerosis cutis Other specified disease of sebaceous glands Diabetic polyneuropathy associated with diabetes mellitus due to underlying condition ([facility]) Callus of heel Corns and callosities [facility] Diagnosis Pain Generalized pain [facility] Diagnosis Onset Date Resolution Status Diabetes mellitus type 2 in obese acute Atherosclerotic heart diseas e of [place] coronary artery without angina pectoris chronic Body mass index (BMI) 40.0-44.9, adult chronic CKD (chronic kidney disease) stage 3, GFR 30-59 ml/min chronic Essential (primary) hypertension chronic HLD (hyperlipidemia) chronic DANYELL (obstructive sleep apnea) chronic 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 Work Phone: Evaluation note* Diagnosis Onychomycosis- Primary Dermatophytosis of nail Pain in toe of left foot Pain in limb Pain in toe of right foot Pain in limb Diabetic polyneuropathy associated with type 2 diabetes mellitus (HCC) [facility] Diagnosis Onychomycosis- Primary Dermatophytosis of nail Pain in toe of left foot Pain in limb Pain in toe of right foot Pain in limb Diabetic polyneuropathy associated with type 2 diabetes mellitus (HCC) [facility] Diagnosis Onychomycosis- Primary Dermatophytosis of nail Pain in toe of left foot Pain in limb Pain in toe of right foot Pain in limb Diabetic polyneuropathy associated with type 2 diabetes mellitus (HCC) [facility] Onychomycosis- Primary Dermatophytosis of nail Pain in toe of left foot Pain in limb Pain in toe of right foot Pain in limb Diabetic polyneuropathy associated with type 2 diabetes mellitus (HCC) Venous insufficiency Unspecified venous (peripheral) insufficiency [facility] Diagnosis Onychomycosis- Primary Dermatophytosis of nail Pain in toe of left foot Pain in limb Diabetic polyneuropathy associated with type 2 diabetes mellitus (HCC) Pain in toe of right foot Pain in limb [facility] Dis[facility] instructions Additional Instructions Your workup today showed changes consistent with a urinary tract infection however there are no signs of systemic infection/sepsis. Take the antibiotic as directed to resolve the infection. It will typically take 2 to 3 days for the antibiotic to take effect. If you develop a fever or have worsening of symptoms or any further concerns please return to the ER for repeat evaluation.[facility] Work Phone: Hospital Discharge instructionsAdditional Instructions Stop taking the antibiotic azithromycin that you are currently on and take the doxycycline that was sent to your pharmacy as prescribed. Return with worsening symptoms or other concerns. Your CT of your chest did not show any focal consolidations. Your blood work did not show any acute abnormalities.[facility] Work Phone: Hospital Discharge instructionsAdditional Instructions Use ice to the bridge of your nose. This will help with swelling. This will also help with any bleeding from the nose.[facility] Work Phone: Reason for referral (narrative)No reason for referral information availableWooFostoria [facility] Work Phone: Reason for visit Narrative* Diagnostic Procedure Only (Routine) - Authorized Specialty Diagnoses / Procedures Referred By Contac t Referred To Contact XR IMAGING Diagnoses Pain Procedures XR FOOT GENERAL 3V AP/LAT/OBL BILATERAL RADEX FOOT COMPLETE MINIMUM 3 VIEWS [address] [place] [address] [place] [address] Referral ID Status Reason Start Date Expiration Date Visits Requested Visits Authorized [id number] Authorized Auto-Generat ed Referral 07/12/2023 08/10/2024 1 1 [facility] Chief Complaint and Reason for Visit Chief [...] skin infection Obesity Atherosclerotic heart disease of [place] coronary artery without angina pectoris Body mass [...] skin infection Obesity Atherosclerotic heart disease of [place] coronary artery without angina pectoris Body mass index (BMI) 40.0-44.9, adult CKD (chronic kidney disease) stage 3, GFR 30-59 ml/min Diabetes mellitus Essential (primary) hypertension HLD (hyperlipidemia) Atherosclerotic heart disease of [place] coronary artery without angina pectoris Essential (primary) [...] skin infection Obesity Atherosclerotic heart disease of [place] coronary artery without angina pectoris Body mass index (BMI) 40.0-44.9, adult CKD (chronic kidney disease) stage 3, GFR 30-59 ml/min Diabetes mellitus Essential (primary) hypertension HLD (hyperlipidemia) Atherosclerotic heart disease of [place] coronary artery without angina pectoris Essential (primary) hypertension History of coronary artery stent placement Chief Complaint 3 M FU 6 M FU 9 M FU SOB ASHD HTN FALL WITH HEAD INJURY Reason for Visit 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 dise ase Mild cognitive impairment Parkinson's disease Polyneuropathy B12 nutritional deficiency 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 disease Fungal skin infection Obesity Atherosclerotic heart disease of [place] coronary artery without angina pectoris Body mass index (BMI) 40.0-44.9, adult CKD (chronic kidney disease) stage 3, GFR 30-59 ml/min Diabetes mellitus Essential (primary) hypertension HLD (hyperlipidemia) Atherosclerotic heart disease of [place] coronary artery without angina pectoris Essential (primary) hypertension History of coronary artery stent placement Chief Complaint 9 M FU SOB ASHD HTN FALL WITH HEAD INJURY STITCHES OUT 3 M FU E-ORDER Amb Documentation Reason for Visit Atherosclerotic hear t disease of [place] coronary artery without angina pectoris Essential (primary) [...] 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 Essential (primary) hypertension History of coronary artery stent placement HLD (hyperlipidemia) Chief Complaint 1 Y FU 6 M FU Reason for Visit Obesity DANYELL (obstructive sleep apnea) Atherosclerotic heart disease of [place] coronary artery without angina pectoris Essential (primary) hypertension History of coronary artery stent placement HLD (hyperlipidemia) Chief Complaint 1 Y FU 6 M FU 8 M FU E-ORDER Reason for Visit Obesity DANYELL (obstructive sleep apnea) Atherosclerotic heart disease of [place] coronary artery without angina pectoris Essential (primary) [...] for Visit Atherosclerotic hear t disease of [place] coronary artery without angina pectoris Essential (primary) [...] Parkinson's disease Diabetes mellitus Chief Complaint sob [facility] ER FU 6 M FU Cough 6 M FU E ORDERS Reason for Visit Diabetes mellitus ty pe 2 in obese Atherosclerotic heart disease of [place] coronary artery without angina pectoris Body mass index (BMI) 40.0-44.9, adult CKD (chronic kidney disease) stage 3, GFR 30-59 ml/min Essential (primary) hypertension HLD (hyperlipidemia) DANYELL (obstructive sleep apnea) 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 disease Mild cognitive impairment Parkinson's disease Acute bronchitis B12 nutritional deficiency Diabetes mellitus type 2 in obese Obesity Atherosclerotic heart disease of [place] coronary artery without angina pectoris CKD (chronic kidney disease) stage 3, GFR 30-59 ml/min Essential (primary) hypertension HLD (hyperlipidemia) Chief Complaint Admit Date 4 M FU August 01, 2024 1:54pm sob November 19, 2024 10:47 pm [facility] ER FU November 25, 2024 11:01 am dyspnea on exertion November 25, 2024 12:34 pm Reason for Visit Admit Date Left foot drop August 01, 2024 1:54pm Parkinson's disease August 01, 2024 1:54pm Mild cognitive impairment August 01, 2024 1:54pm Orthostatic hypotension August 01 025 1:54pm Reason for Visit Admit Date Left foot drop August 01, 2024 1:54pm Parkinson's disease August 01, 2024 1:54pm Mild cognitive impairment August 01, 2024 1:54pm Orthostatic hypotension August 01 025 1:54pm Diabetes mellitus type 2, insulin depend ent November 25, 2024 11:01am Generalized weakness November 25, 2024 11:0 1am Atherosclerotic heart diseas e of [place] coronary artery without angina pectoris November 25, 2024 11:01am CKD (chronic kidney disease) stage 3, GF R 30-59 ml/min November 25, 2024 11:01am Essential (primary) hypertension November 11:01am Chief Complaint Admit Date 1 M FU July 25, 2024 2 :30pm 4 M FU August 01, 2024 1:54pm sob November 19, 2024 10:47 pm Reason for Visit Admit Date Diabetes mellitus type 2 in obese ua 2024 2:30pm Parkinson's disease July 25, 2024 2 :30pm Polyneuropathy July 25, 2024 2 :30pm Vasovagal episode July 25, 2024 2 :30pm [id number] kidney injury July 25, 2024 2:30pm Atherosclerotic heart diseas e of [place] coronary artery without angina pectoris July 25, 2024 2:30pm CKD (chronic kidney disease) stage 3, GF R 30-59 ml/min July 25, 2024 2:30pm Essential (primary) hypertension 2024 2:30pm Obesity July 25, 2024 2 :30pm DANYELL (obstructive sleep apnea) July 252024 2:30pm Left foot drop August 01, 2024 1:54pm Parkinson's disease August 01, 2024 1:54pm Mild cognitive impairment August 01, 2024 1:54pm Orthostatic hypotension February 13th, 2 025 1:54pm Chief Complaint Admit Date sob November 19, 2024 10:47 pm [facility] ER FU November 25, 2024 11:01 am dyspnea on exertion November 25, 2024 12:34 pm 2 WK FU December 09, 2024 1:52 pm Reason for Visit Admit Date Atherosclerotic heart diseas e of [place] coronary artery without angina pectoris November 25, 2024 11:01am CKD (chronic kidney disease) stage 3, GF R 30-59 ml/min November 25, 2024 11:01am Essential (primary) hypertension November 11:01am Diabetes mellitus type 2, insulin depend ent November 25, 2024 11:01am Generalized weakness November 25, 2024 11:0 1am Chief Complaint Admit Date sob November 19, 2024 10:47 pm [facility] ER FU November 25, 2024 11:01 am dyspnea on exertion November 25, 2024 12:34 pm 2 WK FU December 09, 2024 1:52 pm EORDER December 09, 2024 3:24 pm Reason for Visit Admit Date Atherosclerotic heart diseas e of [place] coronary artery without angina pectoris November 25, 2024 11:01am CKD (chronic kidney disease) stage 3, GF R 30-59 ml/min November 25, 2024 11:01am Essential (primary) hypertension November 11:01am Diabetes mellitus type 2, insulin depend ent November 25, 2024 11:01am Generalized weakness November 25, 2024 11:0 1am Diabetes mellitus type 2 in obese November 182024 1:52pm Hypothyroidism December 09, 2024 1:52 pm Parkinson's disease December 09, 2024 1:52 pm Pneumonia December 09, 2024 1:52 pm Atherosclerotic heart diseas e of [place] coronary artery without angina pectoris December 09, 2024 1:52pm CKD (chronic kidney disease) stage 3, GF R 30-59 ml/min December 09, 2024 1:52pm Essential (primary) hypertension December 092024 1:52pm HLD (hyperlipidemia) December 09, 2024 1:5 2pm DANYELL (obstructive sleep apnea) December 09, 2024 1:52pm Chief Complaint Admit Date sob November 19, 2024 10:47 pm [facility] ER FU November 25, 2024 11:01 am dyspnea on exertion November 25, 2024 12:34 pm 2 WK FU December 09, 2024 1:52 pm EORDER December 09, 2024 3:24 pm sob December 21, 2024 3:35p m Chief Complaint Admit Date sob November 19, 2024 10:47 pm [facility] ER FU November 25, 2024 11:01 am dyspnea on exertion November 25, 2024 12:34 pm 2 WK FU December 09, 2024 1:52 pm EORDER December 09, 2024 3:24 pm sob December 21, 2024 3:35p m Increased Dyspnea like before stent. L .L. December 23, 2024 1:32pm Reason for Visit Admit Date Atherosclerotic heart diseas e of [place] coronary artery without angina pectoris November 25, 2024 11:01am CKD (chronic kidney disease) stage 3, GF R 30-59 ml/min November 25, 2024 11:01am Essential (primary) hypertension November 11:01am Diabetes mellitus type 2, insulin depend ent November 25, 2024 11:01am Generalized weakness November 25, 2024 11:0 1am Diabetes mellitus type 2 in obese November 182024 1:52pm Hypothyroidism December 09, 2024 1:52 pm Parkinson's disease December 09, 2024 1:52 pm Pneumonia December 09, 2024 1:52 pm Atherosclerotic heart diseas e of [place] coronary artery without angina pectoris December 09, 2024 1:52pm CKD (chronic kidney disease) stage 3, GF R 30-59 ml/min December 09, 2024 1:52pm Essential (primary) hypertension December 092024 1:52pm HLD (hyperlipidemia) December 09, 2024 1:5 2pm DANYELL (obstructive sleep apnea) December 09, 2024 1:52pm Shortness of breath December 23, 2024 1:32p m Essential (primary) hypertension December 1:32pm HLD (hyperlipidemia) December 23, 2024 1:32 pm History of coronary artery stent placeme nt December 23, 2024 1:32pm Chief Complaint Admit Date sob November 19, 2024 10:47 pm [facility] ER FU November 25, 2024 11:01 am dyspnea on exertion November 25, 2024 12:34 pm 2 WK FU December 09, 2024 1:52 pm EORDER December 09, 2024 3:24 pm sob December 21, 2024 3:35p m Increased Dyspnea like before stent. L .L. December 23, 2024 1:32pm [facility] ER FU December 30, 2024 11:1 0am Reason for Visit Admit Date Atherosclerotic heart diseas e of [place] coronary artery without angina pectoris November 25, 2024 11:01am CKD (chronic kidney disease) stage 3, GF R 30-59 ml/min November 25, 2024 11:01am Essential (primary) hypertension November 11:01am Diabetes mellitus type 2, insulin depend ent November 25, 2024 11:01am Generalized weakness November 25, 2024 11:0 1am Diabetes mellitus type 2 in obese November 182024 1:52pm Hypothyroidism December 09, 2024 1:52 pm Parkinson's disease December 09, 2024 1:52 pm Pneumonia December 09, 2024 1:52 pm Atherosclerotic heart diseas e of [place] coronary artery without angina pectoris December 09, 2024 1:52pm CKD (chronic kidney disease) stage 3, GF R 30-59 ml/min December 09, 2024 1:52pm Essential (primary) hypertension December 092024 1:52pm HLD (hyperlipidemia) December 09, 2024 1:5 2pm DANYELL (obstructive sleep apnea) December 09, 2024 1:52pm Essential (primary) hypertension December 1:32pm HLD (hyperlipidemia) December 23, 2024 1:32 pm History of coronary artery stent placeme nt December 23, 2024 1:32pm Shortness of breath December 23, 2024 1:32p m Chief Complaint Admit Date sob November 19, 2024 10:47 pm [facility] ER FU November 25, 2024 11:01 am dyspnea on exertion November 25, 2024 12:34 pm 2 WK FU December 09, 2024 1:52 pm EORDER December 09, 2024 3:24 pm sob December 21, 2024 3:35p m Increased Dyspnea like before stent. L .L. December 23, 2024 1:32pm [facility] ER FU December 30, 2024 11:1 0am fall December 31, 2024 2:25 pm Reason for Visit Admit Date Atherosclerotic heart diseas e of [place] coronary artery without angina pectoris November 25, 2024 11:01am CKD (chronic kidney disease) stage 3, GF R 30-59 ml/min November 25, 2024 11:01am Essential (primary) hypertension November 11:01am Diabetes mellitus type 2, insulin depend ent November 25, 2024 11:01am Generalized weakness November 25, 2024 11:0 1am Diabetes mellitus type 2 in obese November 182024 1:52pm Hypothyroidism December 09, 2024 1:52 pm Parkinson's disease December 09, 2024 1:52 pm Pneumonia December 09, 2024 1:52 pm Atherosclerotic heart diseas e of [place] coronary artery without angina pectoris December 09, 2024 1:52pm CKD (chronic kidney disease) stage 3, GF R 30-59 ml/min December 09, 2024 1:52pm Essential (primary) hypertension December 092024 1:52pm HLD (hyperlipidemia) December 09, 2024 1:5 2pm DANYELL (obstructive sleep apnea) December 09, 2024 1:52pm Essential (primary) hypertension December 1:32pm HLD (hyperlipidemia) December 23, 2024 1:32 pm History of coronary artery stent placeme nt December 23, 2024 1:32pm Shortness of breath December 23, 2024 1:32p m Diabetes mellitus type 2 in obese December 172024 11:10am Pneumonia December 30, 2024 11:1 0am Shortness of breath at rest December 30, 2 025 11:10am CKD (chronic kidney disease) stage 3, GF R 30-59 ml/min December 30, 2024 11:10am Obesity December 30, 2024 11:1 0am Chief Complaint Admit Date sob November 19, 2024 10:47 pm [facility] ER FU November 25, 2024 11:01 am dyspnea on exertion November 25, 2024 12:34 pm 2 WK FU December 09, 2024 1:52 pm EORDER December 09, 2024 3:24 pm sob December 21, 2024 3:35p m Increased Dyspnea like before stent. L .L. December 23, 2024 1:32pm [facility] ER FU December 30, 2024 11:1 0am fall December 31, 2024 2:25 pm DYSPNEA ON EXERTION January 02, 2025 1:46 pm [facility] ER FU January 06, 2025 1:55 pm Family History Relationship Condition Age at Onset Recorded Date/T selvin mother Coronary artery disease Unknown 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 accident (CVA) Unknown brother Coronary artery disease Unknown Myocardial infarction Unknown Diabetes mellitus Unknown Cardiac disease Unknown daughter Asthma Unknown father Malignant neoplasm Unknown sister Malignant neoplasm of breast Unknown Asthma Unknown sister Cardiomyopathy Unknown Advance Directives Advance Directive Response Recorded Date/ Time Advance Directives Yes July 13, 2021 11:49am Living Will Yes July 13 11:49am Power of Conduit Worker Yes July 13, 2021 11:49am Advance Directive Response Recorded Date/ Time Advance Directives No October 28 8:35am Living Will No October 28, 2021 8 :35am Power of Conduit Worker No October 28, 2021 8:35am Advance Directive Response Recorded Date/ Time Advance Directives Yes October 29 7:13am Living Will Yes October 29, 2021 7 :13am Power of Conduit Worker Yes October 29, 2021 7:13am Advance Directive Response Recorded Date/ Time Advance Directives on File Yes October 172021 7:13am Name of Medical Power of Conduit Worker Iris bradley- October 29, 2021 7:13am Name of Medical Power of Conduit Worker TERRENCE BOURNE NEVINJOHN February 01, 2022 1:26pm Advance Directives Yes October 29 7:13am Living Will Yes February 01 1:26pm Power of Conduit Worker Yes February 01 022 1:26pm Advance Directive Response Recorded Date/ Time Name of Medical Power of Conduit Worker TERRENCE BOURNE NEVINJOHN February 01, 2022 1:26pm Advance Directives Yes October 29 7:13am Living Will Yes February 01 2 1:26pm Power of Conduit Worker Yes February 01 022 1:26pm Advance Directive Response Recorded Date/ Time Advance Directives Yes October 29 7:13am Living Will Yes February 01 1:26pm Power of Conduit Worker Yes February 01, 2 022 1:26pm Documents on File Type Date Recorded Patient Pacu Rn Expl anation Advance Directive(s) 10/30/2008 10:54 PM Documents on File Type Date Recorded Patient Pacu Rn Expl anation Advance Directive(s) 10/30/2008 10:54 PM Advance Directive Response Recorded Date/ Time Advance Directives Yes January 23, 2 023 2:13pm Living Will No July 16 4:09pm Power of Conduit Worker No July 16, 2023 4:09pm Advance Directive Response Recorded Date/ Time Living Will Yes December 20, 2023 2 :43pm Do you have a Healthcare Power of Conduit Worker? Yes December 20, 2023 2:43pm Do you have a Healthcare Power of Conduit Worker? Yes November 19, 2024 10:51pm Advance Directives Yes December 19 2:43pm Advance Directive Response Recorded Date/ Time Living Will Yes December 20, 2023 2 :43pm Do you have a Healthcare Pow er of Conduit Worker? Yes December 20, 2023 2:43pm Do you have a Healthcare Pow er of Conduit Worker? Yes November 19, 2024 10:51pm Do you have a Healthcare Pow er of Conduit Worker? Yes December 21, 2024 4:06pm Name of Medical Power of Conduit Worker Iris briceno December 21, 2024 4:06pm Advance Directives Yes December 19 2:43pm Advance Directive Response Recorded Date/ Time Living Will Yes December 20, 2023 2 :43pm Do you have a Healthcare Pow er of Conduit Worker? Yes December 20, 2023 2:43pm Do you have a Healthcare Pow er of Conduit Worker? Yes December 31, 2024 2:33pm Do you have a Healthcare Pow er of Conduit Worker? Yes November 19, 2024 10:51pm Do you have a Healthcare Pow er of Conduit Worker? Yes December 21, 2024 4:06pm Name of Medical Power of Conduit Worker Iris briceno December 21, 2024 4:06pm Advance Directives Yes December 19 2:43pm Summary Purpose Additional Source Comments Goals (unrecognized [...] Provider, Referri ng Provider Active Lela Sherman LEGAL CONSULTANT, LEGAL CONSULTANT-C Attending Provider Active Team Status: Inactive Member [...] Padgett MD Attending Provider, Referring Provider Active Paper Feeder Relationship Specialty Start Date End Date Keron Maciel MD [address] [place] [address] PCP - General Internal Medicine 06/09/21 Paper Feeder Relationship Specialty Start Date End Date Keron Maciel MD [address] [place] [address] PCP - General Internal Medicine 06/09/21 Team Status: Inactive Member Role Status Dates Dr. Keron Maciel MD Primary Care Provider, Referri ng Provider Active Bhanu PICKARD, PA Attending Provider Active Team Status: Inactive Member Role Status Dates Dr. Keron Maciel MD Primary Care Provider Active Dr. Saurabh Porter DO Attending Provider, Emergency Manda nath Active Paper Feeder Relationship Specialty Start Date End Date Keron Maciel MD [address] [place] [address] PCP - General Internal Medicine 06/09/21 Paper Feeder Relationship Specialty Start Date End Date Keron Maciel MD [address] [place] [address] PCP - General Internal Medicine 06/09/21 Paper Feeder Relationship Specialty Start Date End Date Keron Maciel MD [address] [place] [address] PCP - General Internal Medicine 06/09/21 Paper Feeder Relationship Specialty Start Date End Date Keron Maciel MD [address] [place] [address] PCP - General Internal Medicine 06/09/21 Team Status: Active Member Role Status Dates Dr. Keron Maciel MD Primary Care Provider Active Team Status: Inactive Member Role Status Dates Dr. Keron Maciel MD Primary Care Provider Active Start: August 01, 2024 End: August 01, 2024 Dr. Keron Maciel MD Referring Provider Active Start: August 01, 2024 End: August 01, 2024 Dr. Rich Padgett MD Attending Provider Active Start: August 01, 2024 End: August 01, 2024 Team Status: Inactive Member Role Status Dates Dr. Keron Maciel MD Primary Care Provider Active Start: November 19, 2024 End: November 20, 2024 Dr. Helio Corrales DO Attending Provider Active Start: November 19, 2024 End: November 20, 2024 Dr. Helio Corrales DO Emergency Provider Active Start: November 19, 2024 End: November 20, 2024 Team Status: Inactive Member Role Status Dates Dr. Keron Maciel MD Primary Care Provider Active Start: November 25, 2024 End: November 25, 2024 Dr. Keron Maciel MD Attending Provider Active Start: November 25, 2024 End: November 25, 2024 Team Status: Active Member Role Status Dates Dr. Keron Maciel MD Primary Care Provider Active Start: November 25, 2024 Dr. Keron Maciel MD Attending Provider Active Start: November 25, 2024 Dr. Keron Maciel MD Referring Provider Active Start: November 25, 2024 Team Status: Inactive Member Role Status Dates Dr. Keron Maciel MD Primary Care Provider Active Start: November 25, 2024 End: November 25, 2024 Dr. Keron Maciel MD Attending Provider Active Start: November 25, 2024 End: November 25, 2024 Dr. Keron Maciel MD Referring Provider Active Start: November 25, 2024 End: November 25, 2024 Team Status: Inactive Member Role Status Dates Dr. Keron Maciel MD Primary Care Provider Active Start: July 25, 2024 End: July 25, 2024 Dr. Keron Maciel MD Attending Provider Active Start: July 25, 2024 End: July 25, 2024 Team Status: Inactive Member Role Status Dates Dr. Keron Maciel MD Primary Care Provider Active Start: November 19, 2024 End: November 20, 2024 Dr. Helio Corrales DO Emergency Provider Active Start: November 19, 2024 End: November 20, 2024 Team Status: Inactive Member Role Status Dates Dr. Keron Maciel MD Primary Care Provider Active Start: December 09, 2024 End: December 09, 2024 Dr. Keron Maciel MD Attending Provider Active Start: December 09, 2024 End: December 09, 2024 Team Status: Active Member Role/Relationship Status Dates Dr. Keron Maciel MD Primary Care Provider Active Team Status: Inactive Member Role/Relationship Status Dates Dr. Keron Maciel MD Primary Care Provider Active Start: November 19, 2024 End: November 20, 2024 Dr. Helio Corrales DO Attending Provider Active Start: November 19, 2024 End: November 20, 2024 Dr. Helio Corrales DO Emergency Provider Active Start: November 19, 2024 End: November 20, 2024 Team Status: Inactive Member Role/Relationship Status Dates Dr. Keron Maciel MD Primary Care Provider Active Start: November 25, 2024 End: November 25, 2024 Dr. Keron Maciel MD Attending Provider Active Start: November 25, 2024 End: November 25, 2024 Team Status: Inactive Member Role/Relationship Status Dates Dr. Keron Maciel MD Primary Care Provider Active Start: November 25, 2024 End: November 25, 2024 Dr. Keron Maciel MD Attending Provider Active Start: November 25, 2024 End: November 25, 2024 Dr. Keron Maciel MD Referring Provider Active Start: November 25, 2024 End: November 25, 2024 Team Status: Inactive Member Role/Relationship Status Dates Dr. Keron Maciel MD Primary Care Provider Active Start: December 09, 2024 End: December 09, 2024 Dr. Keron Maciel MD Attending Provider Active Start: December 09, 2024 End: December 09, 2024 Team Status: Inactive Member Role/Relationship Status Dates Dr. Keron Maciel MD Primary Care Provider Active Start: December 09, 2024 End: December 09, 2024 Dr. Keron Maciel MD Attending Provider Active Start: December 09, 2024 End: December 09, 2024 Dr. Keron Maciel MD Referring Provider Active Start: December 09, 2024 End: December 09, 2024 Team Status: Inactive Member Role/Relationship Status Dates Dr. Keron Maciel MD Primary Care Provider Active Start: December 21, 2024 End: December 21, 2024 Dr. Derick Sorenson DO Emergency Provider Active Start: December 21, 2024 End: December 21, 2024 Team Status: Inactive Member Role/Relationship Status Dates Dr. Keron Maciel MD Primary Care Provider Active Start: December 23, 2024 End: December 23, 2024 Dr. Keron Maciel MD Referring Provider Active Start: December 23, 2024 End: December 23, 2024 Zhen Simons LEGAL CONSULTANT, LEGAL CONSULTANT-C Attending Provider Active S tart: December 23, 2024 End: December 23, 2024 Team Status: Inactive Member Role/Relationship Status Dates Dr. Keron Maciel MD Primary Care Provider Active Start: December 21, 2024 End: December 21, 2024 Dr. Derick Sorenson DO Attending Provider Active Start: December 21, 2024 End: December 21, 2024 Dr. Derick Sorenson DO Emergency Provider Active Start: December 21, 2024 End: December 21, 2024 Team Status: Inactive Member Role/Relationship Status Dates Dr. Keron Maciel MD Primary Care Provider Active Start: December 30, 2024 End: December 30, 2024 Dr. Keron Maciel MD Attending Provider Active Start: December 30, 2024 End: December 30, 2024 Team Status: Inactive Member Role/Relationship Status Dates Dr. Keron Maciel MD Primary Care Provider Active Start: December 31, 2024 End: December 31, 2024 Dr. Tevin Tran DO Emergency Provider Active Start: December 31, 2024 End: December 31, 2024 Team Status: Inactive Member Role/Relationship Status Dates Dr. Keron Maciel MD Primary Care Provider Active Start: December 31, 2024 End: December 31, 2024 Dr. Tevin Tran DO Attending Provider Active Start: December 31, 2024 End: December 31, 2024 Dr. Tevin Tran DO Emergency Provider Active Start: December 31, 2024 End: December 31, 2024 Team Status: Active Member Role/Relationship Status Dates Dr. Keron Maciel MD Primary Care Provider Active Start: January 02, 2025 Dr. Keron Maciel MD Attending Provider Active Start: January 02, 2025 Dr. Keron Maciel MD Referring Provider Active Start: January 02, 2025 Team Status: Active Member Role/Relationship Status Dates Dr. Kreon Maciel MD Primary Care Provider Active Start: January 02, 2025 Dr. Patti Steinberg MD Attending Provider Active Start: January 02, 2025 Team Status: Inactive Member Role/Relationship Status Dates Dr. Keron Maciel MD Primary Care Provider Active Start: January 06, 2025 End: January 06, 2025 Dr. Keron Maciel MD Attending Provider Active Start: January 06, 2025 End: January 06, 2025 Source Comments (unrecognize d section and content) In the event this informatio n is protected by the Federal Confidentiality of Alcohol and Drug Abuse Patient Records regulations: The Federal rules restrict any use of the information to criminally investigate or prosecute any alcohol or drug abuse patient.[facility] the event this information is protected by the Federal Confidentiality of Alcohol and Drug Abuse Patient Records regulations: The Federal rules restrict any use of the information to criminally investigate or prosecute any alcohol or drug abuse patient.[facility] the event this information is protected by the Federal Confidentiality of Alcohol and Drug Abuse Patient Records regulations: The Federal rules restrict any use of the information to criminally investigate or prosecute any alcohol or drug abuse patient.[facility] the event this information is protected by the Federal Confidentiality of Alcohol and Drug Abuse Patient Records regulations: The Federal rules restrict any use of the information to criminally investigate or prosecute any alcohol or drug abuse patient.[facility] the event this information is protected by the Federal Confidentiality of Alcohol and Drug Abuse Patient Records regulations: The Federal rules restrict any use of the information to criminally investigate or prosecute any alcohol or drug abuse patient.[facility] the event this information is protected by the Federal Confidentiality of Alcohol and Drug Abuse Patient Records regulations: The Federal rules restrict any use of the information to criminally investigate or prosecute any alcohol or drug abuse patient.[facility] the event this information is protected by the Federal Confidentiality of Alcohol and Drug Abuse Patient Records regulations: The Federal rules restrict any use of the information to criminally investigate or prosecute any alcohol or drug abuse patient.[facility] Reason for Visit (unrecogniz ed section and content) Reason Comments Established Patient Diabetic Foot Care Reason Comments Established Patient Follow Up Diabetic Foot Check Reason Comments Established Patient Follow Up Diabetic Foot Care (unrecognized sect ion and content) No Status Records FoundNo Status Records Found INFORMATION SOURCE (unrecogn ized section and content) DATE CREATED AUTHOR 12/15/2024 [facility] DATE CREATED AUTHOR AUTHOR'S ANABEL RAMIREZ 01/04/2025 [facility] FOR RECORDS PERTAINING TO PATIENTS WHO ARE [...] BE BASED ON THE PRIMARY CLINICAL RECORDS. [employer] provides no warranty or guarantee of the accuracy or completeness of information in this document.
[2025-01-07 03:11] LABS: Free T3 2.5 pg/mL (2.18-3.98)
--- NOTE | 2025-01-07 03:16 | HP.PCM_ITS ---
[facility] - General General Date of Admission: 01/07/25 Date of Service: 01/07/25 Chief Complaint: Generalized weakness, falling HPI Narrative DARREN REDDY, is a 89 M who presents to the emergency room with chief complaint of multiple falls and generalized weakness. Patient has significant past medical history of Parkinson's disease, TIA, vitamin B12 deficiency, CVA, benign prostate hypertrophy, hypothyroidism chronic chronic kidney disease, right bundle branch block, type 2 diabetes, hyperlipidemia. Patient states that over the past 3 weeks she has had increased weakness and has multiple falls over the past several days with noted older contusions on his face. Patient states that he is on a blood thinner but is unable to tell me which. Patient denies loss of consciousness with falling but he has fallen twice in the last few hours. Urinalysis was positive for urinary tract infection patient was given dose of Rocephin in the emergency room. 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 Obesity History of CVA (cerebrovascular accident) Stroke/cerebrovascular accident Body mass index (BMI) 40.0-44.9, adult GERD (gastroesophageal reflux disease) BPH (benign prostatic hyperplasia) Hypothyroidism Osteoarthritis CKD (chronic kidney disease) stage 3, GFR 30-59 ml/min Debility Iron deficiency anemia Syncope and collapse Right bundle branch block (RBBB) with left anterior fascicular block Premature ventricular contractions Essential (primary) hypertension Vocal cord dysfunction DANYELL (obstructive sleep apnea) Hiatal hernia BMI 40.0-44.9, adult Dyspnea Cough Shortness of breath Obesity Upper respiratory infection Right flank pain Anemia Atherosclerotic heart disease of [place] coronary artery without angina pectoris 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 Palpitations Nonrheumatic tricuspid (valve) insufficiency HLD (hyperlipidemia) Chest pain Appendicitis Benign prostatic hypertrophy GERD (gastroesophageal reflux disease) Nephrolithiasis Diabetes mellitus type 2 in obese Home Medications ?Medication ?Instructions ?Recorded ?Last Taken ?Type cholecalciferol (vitamin D3) 125 5,000 unit PO DAILY v itamin 01/11/16 08/24/20 History mcg (5,000 unit) capsule finasteride 5 mg tablet 5 mg PO DAILY prostate 06/2910/29/21 History aspirin 81 mg tablet,delayed 81 mg PO DAILY heart heal th 07/24/15 10/29/21 History release acetaminophen 500 mg tablet 1,000 mg (2 x 500 mg) PO Q 6H PRN 02/19/20 Unknown Rx PRN Pain Score 1-3/10 Handi cap Placard #1 ea 10/14/20 Unknown Rx vitamins A,C,G-ysbf-rimrpw 2,148 1 tab PO BID 12/17/20 Unknown History mcg-113 mg-45 mg-17.4 mg tablet (PreserVision AREDS) pen needle, diabetic 32 gauge x #100 ea 12/25/20 Unkno wn Rx 1/ Compression stockings (04-07) #2 ea 01/04/24 Unknown R x Left AFO #1 ea 01/04/24 Unknown Rx levothyroxine 50 mcg tablet 50 mcg PO DAILY thyroid #9 0 tabs 02/01/24 Unknown Rx escitalopram oxalate 10 mg tablet 10 mg PO DAILY #90 t abs 03/05/24 Unknown Rx pantoprazole 40 mg tablet,delayed See Rx Instructions .Route 03/05/24 Unknown Rx release .COMPLEX #90 tabs metformin 500 mg tablet 500 mg PO BIDCM diabetes #18 0 tabs 03/19/24 Unknown Rx isosorbide mononitrate 30 mg 30 mg PO DAILY #90 TABLET S 04/01/24 Unknown Rx tablet,extended release 24 hr ascorbic acid (vitamin C) 1,000 mg 1 g PO DAILY Unknown History tablet (C-1000) cyanocobalamin (vitamin B-12) 1,000 mcg PO DAILY 06/15 Unknown History 1,000 mcg tablet (Vitamin B-12) ferrous sulfate 325 mg (65 mg 325 mg PO DAILY 06/15/24 Unknown History iron) tablet (Feosol) folic acid 1 mg tablet 1 mg PO DAILY #30 tabs 06/15 Unknown Rx hydrocodone-acetaminophen 5-325mg 0.5 - 1 tab PO BID P RN PRN pain 06/15/24 Unknown History 5mg-325mg zinc acetate 50 mg (zinc) capsule 50 mg PO DAILY 06/15 Unknown History insulin human U-100 NPH-regulr See Rx Instructions sub cut BID 06/24/24 Unknown History 70-30 mix 100 unit/mL subcutaneous susp (Humulin 70/30 U-100 Insulin) pravastatin 20 mg tablet 20 mg PO DAILY cholesterol # 90 tabs 07/23/24 Unknown Rx carbidopa 25 mg-levodopa 100 mg 2 tab PO TID #180 tabs 08/01/24 Unknown Rx tablet (Sinemet) amlodipine 5 mg tablet 5 mg PO DAILY BP #90 tabs Unknown Rx trazodone 50 mg tablet 50 mg PO QHS PRN PRN insomni a #60 10/03/24 Unknown Rx tabs fludrocortisone 0.1 mg tablet See Rx Instructions PO . COMPLEX 10/23/24 Unknown Rx #28 tabs clopidogrel 75 mg tablet 75 mg PO DAILY for cholester ol #90 11/08/24 Unknown Rx TABLETS hydrocodone 7.5 mg-acetaminophen 1 tab PO TID PRN PRN pain 11/19/24 Unknown History 325 mg tablet furosemide 40 mg tablet 40 mg PO DAILY #90 TABLETS 0 12/23/24 Unknown Rx ranolazine 500 mg tablet,extended 500 mg PO BID #180 t abs 01/06/25 Unknown Rx release,12 hr Allergy/AdvReac Type Severity Reaction Status Date / Time lisinopril Allergy Mild Cough Verified 01/07/25 01:07 naproxen (From Aleve) Allergy HIVES Verified 01/07/25 01:07 losartan AdvReac Intermediate Jitters Verified 01/07/25 01:07 metoprolol AdvReac Intermediate Jitters Verified 01/07/25 01:07 pioglitazone HCl (From Actos) AdvReac Mild Upset Verified 01/07/25 01:07 Stomach Family History Mother CAD (coronary artery disease) CVA (cerebral vascular accident) Brother CAD (coronary artery disease) Myocardial infarction Diabetes Heart disease Daughter Asthma Father Cancer bone cancer Sister Breast cancer Asthma Diabetes Heart disease Sister Cardiomyopathy Surgical History History of right and left heart catheterization (07/02/18) History of coronary artery stent placement (07/01/15) History of left heart catheterization (11/01/21) History of lymph node biopsy History of appendectomy History of back surgery Social History household members: spouse housing: house Smoking Status: Former smoker pack-years: 2 how long ago did patient quit smokin+ years ago alcohol intake: former substance use type: does not use caffeine: Yes Type: coffee Number of servings: 2 what type of physical activity do you participate in: none seatbelt use: always do you feel safe at home: Yes ROS Constitutional Constitutional: Reports weakness; Denies chills or fever(s) Eyes Eyes: Denies blurry vision ENT HEENT: Denies abnormal hearing Cardiovascular Cardiovascular: Denies chest pain Respiratory/Chest Respiratory/Chest: Denies shortness of breath at rest Gastrointestinal Gastrointestinal: Denies abdominal pain Genitourinary Genitourinary: Denies dysuria Musculoskeletal Musculoskeletal: Denies back pain Integumentary Integumentary: Reports dry skin Neurologic Neurologic: Reports lack of coordination Psychiatric Psychiatric: Denies anxiety Vital Signs Vital Signs Vital Signs: 01/07/25 01:05 01/07/25 01:05 01/07/25 02:14 Temperature 98.8 F Temperature Source Oral Pulse Rate 75 Respiratory Rate 18 Respiratory Effort Normal Non-Labored Normal Non-Labored Respiratory Depth Normal Respiratory Pattern Normal Normal Blood Pressure 143/96 H Blood Pressure Mean 111 Pulse Ox 91 Oxygen Delivery Method Room Air Room Air 01/07/25 02:19 01/07/25 03:00 Temperature 98.4 F 98.4 F Temperature Source Oral Oral Pulse Rate 82 96 Respiratory Rate 20 H 18 Respiratory Effort Respiratory Depth Respiratory Pattern Blood Pressure 142/77 H 157/87 H Blood Pressure Mean 98 110 Pulse Ox 97 98 Oxygen Delivery Method Room Air Room Air Weight Weight: 226 lb 6.636 oz Body Mass Index (BMI) 38.8 Physical Exam Const alert and oriented x3 General Appearance: cooperative and well developed HEENT normocephalic HEENT Narrative: Bruising on both cheeks noted Eyes PERRL Neck no lymphadenopathy Lymph Lymphatic: no lymphadenopathy noted Resp normal respiratory effort, normal air movement and clear to auscultation bilaterally Cardio S1 normal heart sound and S2 normal heart sound Rhythm: abnormal rhythm irregularly irregular GI normal to inspection, nondistended, normoactive bowel sounds Extremity normal capillary refill Skin General Skin Exam: no breakdown Neuro no focal motor deficits and no sensory deficits noted Psych thought process normal and affect normal Results Lab / Micro Data 01/07/25 01:25 01/07/25 01:25 Labs: Laboratory Results - last 24 hr 01/07/25 01:20: Urine Color Yellow, Urine Clarity Clear, Urine pH 6.0, Ur Specific [place] 1.015, Urine Protein 30 H, Urine Glucose (UA) Normal, Urine Ketones 5 H, Urine Occult Blood Negative, Urine Nitrite Negative, Urine Bilirubin Negative, Urine Urobilinogen Normal, Ur Leukocyte Esterase 500 H, Urine RBC 0 SEEN, Urine WBC 10-25 SEEN, Ur Squamous Epith Cells 0-5 SEEN, Ur Transition Epith Cell 0-5 SEEN, Calcium Oxalate Crystal RARE, Urine Bacteria 1+, Urine Mucus 0 SEEN 01/07/25 01:25: WBC 7.0, RBC 3.96 L, Hgb 13.0, Hct 38.6 L, MCV 97.5 H, MCH 32.8 H, MCHC 33.7, RDW Std Deviation 50.0 H, RDW Coeff of [place]la 13.7, Plt Count 226, MPV 8.7, Immature Gran % (Auto) 0.900, Neut % (Auto) 79.1 H, Lymph % (Auto) 10.0 L, [place] % (Auto) 8.0, Eos % (Auto) 1.4, Baso % (Auto) 0.6, Absolute Neuts (auto) 5.5, Absolute Lymphs (auto) 0.70 L, Nucleated RBC % 0, PT 14.5, INR 1.1, APTT 29.1, Sodium 135, Potassium 4.7, Chloride 95 L, Carbon Dioxide 26.2, Anion Gap 14, BUN 23 H, Creatinine 1.72 H, Estim Creat Clear Calc 32.78 L, Est GFR (MDRD) Non-Af 38 L, BUN/Creatinine Ratio 13.3, Glucose 124 H, Calcium 9.8, Total Bilirubin 0.55, AST 22, ALT < 5, Alkaline Phosphatase 53, Total Protein 6.7, Albumin 4.4, Globulin 2.3, Albumin/Globulin Ratio 1.9, Lipase 20, TSH 1.110, Free T4 1.20, Free T3 pg/dL 2.5 Imaging Radiology Impression Brain CT 01/07/25 01:10 IMPRESSION: No acute intracranial findings Reading Location: [facility] 01/07/25 01:10 IMPRESSION: No acute cervical spine injury. Reading Location: [facility] Chest X-Ray 01/07/25 01:49 IMPRESSION: No acute chest findings. Reading Location: [facility] Assessment & Plan Assessment/Plan (1) Urinary tract infection: (2) Multiple falls: (3) Generalized weakness: (4) Facial contusion: (5) Parkinson's disease: QUALIFIERS: Dyskinesia presence: unspecified whether dyskinesia F luctuating manifestations: unspecified whether manifestations fluctuate Q ualified Code(s): G20.A1 - Parkinson's disease without dyskinesia, without mention of fluctuations (6) Mild cognitive impairment: PLAN: Plan 1 generalized weakness with frequent falls?admit patient to general medical floor, consult case management for discharge planning and placement 2. Urinary tract infection?continue Rocephin 1 g IV every 24 hours, repeat CBC BMP in the morning 3. Parkinson's disease?continue routine home medications 4. Mild cognitive impairment?to be aware as this may be an additional diagnosis that indicates patient needs long-term care 5. DVT prophylaxis?SCDs Charges/Coding Visit Charges Inpatient E&M: 09882 Init Hosp L2
--- OUTSIDE RECORDS SUMMARY | 2025-01-07 03:31 | XMS RPT_ITS | CCD ---
Author Organization [facility] Care Team Providers Care Case Packer Name Role Phone Saurabh Benites MD Unavailable Dr. Keron Maciel Primary Care Provider Dr. Keron Maciel Referring Provider [phone]([facility])[phone] Alo SPRAY DRIER, SPRAY DRIER-C Glory Attending Provider Dr. Soham Jones III Referring Provider Dr. Americo Nazario Attending Provider 1([facility])[phone] Austin Mora Attending Provider Dr. Keron Maciel Attending Provider Dr. David Ashton Attending Provider Dr. Keron Maciel Primary Care Provider Dr. Keron Maciel Referring Provider [phone] Alo SPRAY DRIER, SPRAY DRIER-C Glory Attending Provider Dr. Keron Maciel Attending Provider [phone] Keron Maciel Primary Care Provider Dr. Keron Maciel Referring Provider [phone] Hood SPRAY DRIER, SPRAY DRIER-C Casey Attending Provider [phone] Dr. Keron Maciel Attending Provider [phone] Erick Sung Attending Provider Unavailable Dr. Keron Maciel Primary Care Provider Dr. Keron Maciel Referring Provider [phone] Olga PICKARD, NEERAJ Reza Attending Provider Dr. Keron Maciel Primary Care Provider Dr. Keron Maciel Referring Provider Whit SPRAY DRIER, DENISE Vogel Attending Provider Olga PICKARD, PA Audelia Reza Attending Provider [...] BROOKE, Dr. Sepulveda Emergency Provider [phone] [facility] SPRAY DRIER-CZhen Attending Provider Janell GUTIÉRREZ, Dr. Salazar Primary Care Provider [phone] Dr. Helio Corrales DO Attending Provider Savanna BROOKE, Dr. Cadet Emergency Provider Janell GUTIÉRREZ, Dr. Salazar Attending Provider Janell GUTIÉRREZ, Dr. Salazar Referring Provider Dr. Derick Sorenson DO Attending Provider Delta BROOKE, Dr. Sepulveda Emergency Provider [phone] [facility] SPRAY DRIER-CZhen Attending Provider Dr. Tevin Tran DO Emergency [...] Unavailable Dr. Tevin Tran DO Attending Provider [phone]. Patti Steinebrg MD Attending Provider [phone] Allergies Allergy Classification Reported Allergen(s) Allergy Type Date of Onset Reaction(s) Facility Thiazolidinediones (glitazones) (1 source) pioglitazone Drug Allergy 7 [facility] (4 sources) pioglitazone Drug Allergy 1 Rash & passes out, Rash [facility] Work Phone: (20 sources) Lisinopril Drug Allergy 2 Cough [facility] (20 sources) Losartan Drug All[facility] Metoprolol Drug Allergy 2 [facility] (20 sources) pioglitazone; Translations: [PIOGLITAZONE HCL] Drug Allergy 7 Upset Stomach [facility] (10 sources) Naproxen Drug Allergy 5 HIVES [facility] (1 source) Lisinopril Drug Allergy 5 [facility] (1 source) Losartan Drug Allergy 5 [facility] (1 source) Metoprolol Drug Allergy 5 [facility] (1 source) Naproxen Drug Allergy 5 [facility] Medications Current Medications Medication Drug [...] tablet by mouth daily as needed HYDROCODONE-ACETAMINOPHEN [id number] Juliann Levine LPN [id number] 200 actuat albuterol 0.09 mg/actuat metered dose [...] AERS As needed - 90mcg/inh ALBUTEROL SULFATE [id number] David Ashton MD Comment on above: Inhale [...] Start: 12-17-2020 take 2 tablets by mo [facility] once daily at dinner Vitamins A,C,E-Jkqr-Vvwwxj (Preservision Areds) 7,160 unit- 113 mg-100 unit tablet Active 2 TABLET PO DAILY December 17, 2020 12:00am administer with AM and PM meals aspirin 81 mg delayed release oral tablet (20 sources) Nonsteroidal Anti-inflammatory Drug Start: 07-16-2015 Start: 07-16-2015 take 1 tablet by [facility] once daily ASPIRIN 81 MG TABS One tablet by mouth daily ASPIRIN [id number] Audelia Espinoza PA-C Start: 10-28-2010 End: 06-16-2015 take 1 tablet by mouth once daily ASPIRIN 81 MG TABS One tablet by mouth daily ASPIRIN [id number] David Ashton MD Comment on above: Take [...] tablet by mouth twice daily FERROUS SULFATE [id number] Juliann Emily Levine [employer] finasteride 5 mg oral tablet (20 sources) [...] Comment on above: Take 1 capsule by [facility] once daily. Left AFO (7 sources) [...] by mouth three times daily METFORMIN HCL [id number] David Ashton MD Comment on above: Take 2 tablets by mo [facility] twice daily with meals. insulin isophane, human [...] in the pm INSULIN ISOPHANE & REGULAR [id number] David Ashton MD Start: 05-29-2014 take 35 [IU] by subc utaneous injection in the morning, then take 25 [IU] by subcutaneous injection in the evening NOVOLIN 70/30 (70-30) 100 UNIT/ML SUSP 35 units sq in the am and 25 units sq in the pm INSULIN ISOPHANE & REGULAR [id number] David Ashton MD Comment on above: 48 [...] days, then 1 for 3 days. PREDNISONE [id number] Lela Sherman CNP Comment on above: Take [...] One tablet by mouth daily ATORVASTATIN CALCIUM [id number] Ania Sheridan RN Start: 10-28-2010 take 1 tablet by britt th once daily LIPITOR 10 MG TABS One tablet by mouth daily ATORVASTATIN CALCIUM 15021952139 Paula Bazzi azithromycin 500 mg oral tab let (18 sources) Macrolide Antimicrobial Start: 12-10-2024 End: 12-30-2024 Start: 11-25-2024 End: 12-09-2024 Start: 12-07-2016 End: 01-20-2017 AZITHROMYCIN 250 MG TABS 2 t ablets by mouth today and then 1 tablet daily for the next 4 days AZITHROMYCIN [id number] Audelia Espinoza PA-C benzonatate 100 mg oral [...] Take 2 puffs twice daily BUDESONIDE-FORMOTEROL FUMARATE [id number] Americo Nazario DO cefuroxime 500 mg oral [...] tsp q12h as needed HYDROCOD POLST-CHLORPHEN POLST [id number] Audelia Espinoza PA-C GLUCOSAMINE-CHONDROITI N CAPS (4 sources) Start: 02-25-2011 take 2 tablets by mouth once daily GLUCOSAMINE-CHONDROI TIN CAPS Two tablets by mouth daily GLUCOSAMINE-CHONDROI TIN CAPS [id number] Paula Bazzi Start: 02-25-2011 End: 06-23-2011 take 2 tablets by mouth once daily GLUCOSAMINE-CHONDROITIN CAPS Two tablets by mouth daily GLUCOSAMINE-CHONDROITIN CAPS 61293823190 Estrella August RN citalopram 10 mg oral [...] 40 mg/ml oral suspension (11 sources) Uncompetitive V-pmxjvg-W-aspartate Receptor Antagonist, Sigma-1 Agonist Start: 08-10-2023 End: [...] docusate sodium 50 mg / elizabeth osides, skilled nursing 8.6 mg oral tablet (20 sources) Start: [...] CAPS One tablet by mouth daily DUTASTERIDE [id number] David Ashton MD fludrocortisone acetate 0.1 mg [...] Take 2 puffs every 12 hours FLUTICASONE-SALMETEROL [id number] Americo Nazario DO Start: 02-08-2016 End: 03-21-2016 ADVAIR HFA 230-21 MCG/ACT AE RO Take 1 puff twice daily FLUTICASONE-SALMETEROL [id number] Americo Nazario DO Start: 02-08-2016 End: 02-08-2016 ADVAIR HFA 230-21 MCG/ACT AE RO 2 puffs twice daily FLUTICASONE-SALMETEROL [id number] Americo Nazario DO Start: 10-15-2015 End: 02-08-2016 ADVAIR DISKUS 100-50 MCG/DOS E AEPB Take as Directed FLUTICASONE-SALMETEROL [id number] Americo Nazario DO furosemide 40 mg oral tablet (20 sources) Loop Diuretic Start: 08-31-2015 End: 12-23-2024 Start: 08-31-2015 FUROSEMIDE 40 MG TABS One tablet by mouth twice daily X 3 days then once daily FUROSEMIDE [id number] Estrella August RN Start: 08-06-2015 End: 08-27-2015 take 1 tablet by mouth once daily LASIX 40 MG TABS One tablet by mouth daily FUROSEMIDE [id number] Audelia Espinoza PA-C Start: 02-25-2011 End: 06-21-2012 take 1 tablet by mouth once daily LASIX 40 MG TABS One tablet by mouth daily FUROSEMIDE [id number] David Ashton MD Comment on above: Take 40 mg by mouth once daily. glimepiride 2 mg oral tablet (2 sources) Sulfonylurea Start: 06-25-19 take 1 tablet by mouth twice daily GLIMEPIRIDE 2 MG TABS One tablet by mouth twice daily GLIMEPIRIDE [id number] David Ashton MD glipiZIDE 5 mg oral tablet (4 sources) Sulfonylurea Start: 06-25-19 14 End: 06-16-20 15 take 1 tablet by mouth once daily GLIPIZIDE 5 MG TABS One tablet by mouth daily GLIPIZIDE 32147586000 Audelia Espinoza PA-C Handi cap Placard (20 [...] UNIT/ML SOLN Take as directed INSULIN DETEMIR [id number] David Ashton MD insulin glargine 100 unt/ml injectable solution (4 sources) Insulin Analogue Start: 10-28-2010 End: 06-21-2012 take 30 [IU] by subcutaneous injection at bedtime LANTUS 100 UNIT/ML SOLN 30 units SQ at bedtime INSULIN GLARGINE [id number] Paula Bazzi 3 ml insulin lispro 100 [...] SQ per sliding scale INSULIN LISPRO (HUMAN) [id number] Paula Bazzi INSULIN GLULISINE SOLN (6 sources) Insulin Analogue Start: 06-21-2012 APIDRA SOLN P er sliding scale twice daily if blood glucose is greater than 140 INSULIN GLULISINE SOLN [id number] David Ashton MD Start: 06-21-2012 End: 06-25-2013 APIDRA SOLN Per sliding scal e twice daily if blood glucose is greater than 140 INSULIN GLULISINE SOLN [id number] David Ashton MD Start: 02-25-2011 APIDRA SOLN Pe r sliding scale INSULIN GLULISINE SOLN 66452598779 Paula Bazzi 24 hr isosorbide mononitrate 30 mg extended release oral tablet (20 sources) Nitrate Vasodilator Start: 04-19-2018 End: 04-01-2024 Comment on above: Take 1 tablet by britt th once daily. lisinopril 10 mg oral tablet (6 sources) Angiotensin Converting Enzyme Inhibitor Start: 05-29-2014 End: 02-23-2017 take 1 tablet by mouth once daily LISINOPRIL 10 MG TABS One tablet by mouth daily LISINOPRIL 71311254765 David Ashton MD loratadine 10 mg oral [...] One tablet by mouth daily LOSARTAN POTASSIUM [id number] David Ashton MD Comment on above: Take [...] by mouth three times daily MAGNESIUM OXIDE 18272349919 David Ashton MD melatonin 10 mg sublingual [...] tablet by mouth daily HOLD METOPROLOL TARTRATE [id number] David Ashton MD Start: 07-02-2015 take 0.5 tablet by out twice daily METOPROLOL TARTRATE 25 MG TABS 1/2 tablet by mouth twice daily METOPROLOL TARTRATE [id number] Estrella August RN naproxen 500 mg oral tablet (20 sources) Nonsteroidal Anti-inflammatory Drug Start: 04-19-2018 End: 06-13-2018 Start: 03-11-2016 End: 09-06-2017 Start: 03-11-2016 End: 09-06-2017 take 440 mg by mouth twice daily Naproxen Sodium Discontinued 440 MG PO TWICE A DAY March 11, 2016 12:00am September 06, 2017 1:34pm Start: 06-25-2013 take 2 tablets by mo [facility] once daily ALEVE 220 MG TABS Two tablets by mouth daily NAPROXEN SODIUM 10491887760 David Ashton MD Start: 06-21-2012 take 1 tablet by britt twice daily NAPROSYN 500 MG TABS One tablet by mouth twice daily NAPROXEN [id number] David Ashton MD Start: 10-28-2010 ALEVE 220 MG T ABS PRN NAPROXEN SODIUM 75797766008 David Ashton MD oxyCODONE hydrochloride 5 mg [...] tablet by mouth daily as needed POTASSIUM [id number] David Ashton MD Start: 02-25-2011 End: 06-21-2012 take 2 tablets by mouth once daily POTASSIUM 99 MG TABS Two tablets by mouth daily POTASSIUM 11541134799 Paula Bazzi pravastatin sodium 20 mg ora [...] 2020 12:00am February 19, 2020 9:27pm sennosides, skilled nursing 8.6 mg oral tablet (20 sources) Start: [...] TABS One tablet by mouth daily VALSARTAN 55671191032 Paula Bazzi vitamin d 1000 unt oral tablet (4 sources) Start: 10-28-2010 take 1 tablet by mouth twice daily VITAMIN D 1000 UNIT TABS One tablet by mouth twice daily CHOLECALCIFEROL 86715541485 Paula Bazzi Start: 10-28-2010 take 5 tablets by mouth once V ITAMIN D 1000 UNIT TABS 5000 IU One tablet by mouth daily CHOLECALCIFEROL [id number] David Ashton MD Problems Active Problems Problem Classification Problem Date Documented Date Episodic/Chronic Abdominal pain (20 sources) Right flank pain; Translations: [Unspecified abdominal pain] Onset: 08-03-2006 Resolved: 12-22-2014 05-09-2017 Episodic Acquired foot deformities (13 sources) Foot-drop; Translations: [Foot drop, left foot] 01-04-2024 Episodic Acute and unspecified renal failure (11 sources) Sbejp-mp-aaysiiq renal failure; Translations: [Acute kidney failure, unspecified] [...] Coronary arteriosclerosis; Translations: [Atherosclerotic heart disease of [place] coronary artery without angina pectoris] Onset: 10-28-2010 [...] sources) Long-term current use of anticoagulant; Translations: [prison (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 of anticoagulants] 12-27-2023 Episodic Other [...] (2 sources) Long-term drug therapy; Translations: [Other jail (current) drug therapy] Onset: 10-28-2010 10-28-2010 Unclassified [...] 12-22-2014 12-22-2014 Episodic Other aftercare (1 source) prison (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 of insulin; Translations: [prison (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 of insulin] Onset: 06-17-2024 Episodic [...] Facility Echo Completeon 01-02-2025 Echo Complete Normal [facility] Brain/Head without Contrasto n 12-31-2024 Brain/Head without Contrast Normal [facility] Emergency Department Summary on 12-31-2024 Emergency Department Summary Normal [facility] MR/BMS.IMBon 12-30-2024 MR/BMS.IMB Normal [facility] Cardiology Visit Reporton Cardiology Visit Report Normal [facility] Absolute lymphocyte countOrd ered By: Derick Sorenson on 12-21-2024 Lymphocytes Auto (Unsp spec) [#/Vol] 1.36 10*3/uL 0.83-4.51 [facility] Absolute neutrophil countOrd ered By: Derick Sorenson on 12-21-2024 Neutrophils (Bld) [#/Vol] 3.4 10*3/uL 2.0-7.7 [facility] Activated partial thrombopla stin time (aPTT) in platelet poor plasma by coagulation aOrdered By: Derick Sorenson on 12-21-2024 aPTT Coag (PPP) [Time] 29.7 s 24.1-36.2 [facility] Anion gap in Serum or Plasma Ordered By: Derick Sorenson on 12-21-2024 Anion gap [Moles/Vol] 14 mmol/L - [facility] Automated lymphocyte count a s percentage of total leukocytesOrdered By: Derick Sorenson on 12-21-2024 Lymphocytes/100 WBC Auto (Unsp spec) 24.4 % - [facility] BUN/creatinine ratioOrdered By: Derick Sorenson on 12-21-2024 Urea nitrogen/Creatinine [Mass ratio] 9.8 mg/mg Low 10- [facility] Basic Metabolic Profile (BMP )on 12-21-2024 BUN/CRE 9.8 RATIO Low -20 [facility] Comment on above: Performed By: #### L 500.2500, L503.7505 ####[facility] [address] [place], [address] Calcium [Mass/Vol] 9.9 mg/dL Normal 7.6-11.0 [facility] Comment on above: Performed By: #### L 500.2500, L503.7505 ####[facility] [address] [place], [address] Chloride [Moles/Vol] 99 mmol/L Normal 98-108 [facility] Comment on above: Performed By: #### L 500.2500, L503.7505 ####[facility] [address] [place], [address] CO2 [Moles/Vol] 26.4 mmol/L Normal 21.0-32.0 [facility] Comment on above: Performed By: #### L 500.2500, L503.7505 ####[facility] [address] [place], [address] Creatinine [Mass/Vol] 1.46 mg/dL High 0.70-1.20 [facility] Comment on above: Performed By: #### L 500.2500, L503.7505 ####[facility] [address] [place], [address] ECRCL 38.29 ml/min Low 50-250 [facility] Comment on above: Performed By: #### L 500.2500, L503.7505 ####[facility] [address] [place], [address] GAP 14 Normal 5-15 [facility] Comment on above: Performed By: #### L 500.2500, L503.7505 ####[facility] [address] [place], [address] GFR/1.73 sq M.predicted among non-blacks MDRD (S/P/Bld) [Vol rate/Area] 46 mL/min/{1.73_m2} Low >60 [facility] Comment on above: Result Comment: mL/m in/1.73m2 CKD-EPI Creatinine Equation (2020) Performed By: #### L 500.2500, L503.7505 ####[facility] [address] [place], [address] Glucose [Mass/Vol] 63 mg/dL Low 70-99 [facility] Comment on above: Performed By: #### L 500.2500, L503.7505 ####[facility] [address] [place], [address] Potassium [Moles/Vol] 3.8 mmol/L Normal 3.3-5.1 [facility] Comment on above: Performed By: #### L 500.2500, L503.7505 ####[facility] [address] [place], [address] Sodium [Moles/Vol] 139 mmol/L Normal 133-145 [facility] Comment on above: Performed By: #### L 500.2500, L503.7505 ####[facility] [address] [place], [address] Urea nitrogen [Mass/Vol] 14 mg/dL Normal 4-19 [facility] Comment on above: Performed By: #### L 500.2500, L503.7505 ####[facility] [address] [place], [address] Basophil percentageOrdered B y: Derick Sorenson on 12-21-2024 Basophils/100 WBC (Bld) 0.9 % 0-1 [facility] CBC W/Diff, Automatedon Absolute Lymph 1.36 X10 3/uL Normal 0.83-4.51 [facility] Comment on above: Performed By: #### L 300.3900, L100.0100, L501.4021, L300.4310 ####[facility] [address] [place], [address] Absolute Neut 3.4 X10 3/uL Normal 2.0-7.7 [facility] Comment on above: Performed By: #### L 300.3900, L100.0100, L501.4021, L300.4310 ####[facility] [address] [place], [address] Basophils/100 WBC (Bld) 0.9 % Normal 0-1 [facility] Comment on above: Performed By: #### L 300.3900, L100.0100, L501.4021, L300.4310 ####[facility] [address] [place], [address] Eosinophils/100 WBC (Bld) 3.1 % Normal 0-5 [facility] Comment on above: Performed By: #### L 300.3900, L100.0100, L501.4021, L300.4310 ####[facility] [address] [place], [address] Erythrocyte distribution width (RBC) [Ratio] 14.1 % Normal 11.6-14.6 [facility] Comment on above: Performed By: #### L 300.3900, L100.0100, L501.4021, L300.4310 ####[facility] [address] [place], [address] Hematocrit (Bld) [Volume fraction] 40.5 % Normal 40-54 [facility] Comment on above: Performed By: #### L 300.3900, L100.0100, L501.4021, L300.4310 ####[facility] [address] [place], [address] Hemoglobin (Bld) [Mass/Vol] 13.9 g/dL Normal 13.0-16.5 [facility] Comment on above: Performed By: #### L 300.3900, L100.0100, L501.4021, L300.4310 ####[facility] [address] [place], [address] IG% 0.700 Normal 0.0-0.9 [facility] Comment on above: Result Comment: IG% - Immature Granulocytes (promyelocytes, myelocytes andmetamyelocytes) > 1% indicates that a LEFT SHIFT is Present. Performed By: #### L 300.3900, L100.0100, L501.4021, L300.4310 ####[facility] [address] [place], [address] Lymphocytes/100 WBC (Bld) 24.4 % Normal 19-41 [facility] Comment on above: Performed By: #### L 300.3900, L100.0100, L501.4021, L300.4310 ####[facility] [address] [place], [address] MCH (RBC) [Entitic mass] 33.2 pg High 27.0-32.0 [facility] Comment on above: Performed By: #### L 300.3900, L100.0100, L501.4021, L300.4310 ####[facility] [address] [place], [address] MCHC (RBC) [Mass/Vol] 34.3 g/dL Normal 32-36 [facility] Comment on above: Performed By: #### L 300.3900, L100.0100, L501.4021, L300.4310 ####[facility] [address] [place], [address] MCV (RBC) [Entitic vol] 96.7 fL High 80-94 [facility] Comment on above: Performed By: #### L 300.3900, L100.0100, L501.4021, L300.4310 ####[facility] [address] [place], [address] Monocytes/100 WBC (Bld) 10.8 % High 0-10 [facility] Comment on above: Performed By: #### L 300.3900, L100.0100, L501.4021, L300.4310 ####[facility] [address] [place], [address] Neutrophils/100 WBC (Bld) 60.1 % Normal 47-70 [facility] Comment on above: Performed By: #### L 300.3900, L100.0100, L501.4021, L300.4310 ####[facility] [address] [place], [address] Nucleated RBC (Bld) [#/Vol] 0 10*3/uL Normal 0-5 [facility] Comment on above: Performed By: #### L 300.3900, L100.0100, L501.4021, L300.4310 ####[facility] [address] [place], [address] Platelet mean volume (Bld) [Entitic vol] 9.1 fL Normal 6.2-12.0 [facility] Comment on above: Performed By: #### L 300.3900, L100.0100, L501.4021, L300.4310 ####[facility] [address] [place], [address] Platelets (Bld) [#/Vol] 211 10*3/uL Normal 150-450 [facility] Comment on above: Performed By: #### L 300.3900, L100.0100, L501.4021, L300.4310 ####[facility] [address] [place], [address] RBC (Bld) [#/Vol] 4.19 10*6/uL Low 4.6-6.2 [facility] Comment on above: Performed By: #### L 300.3900, L100.0100, L501.4021, L300.4310 ####[facility] [address] [place], [address] RDW SD 50.2 fl High 35.1-43.9 [facility] Comment on above: Performed By: #### L 300.3900, L100.0100, L501.4021, L300.4310 ####[facility] [address] [place], [address] WBC (Bld) [#/Vol] 5.6 10*3/uL Normal 4.4-11.0 [facility] Comment on above: Performed By: #### L 300.3900, L100.0100, L501.4021, L300.4310 ####[facility] [address] [place], [address] Carbon dioxide, total [Moles /volume] in Central venous bloodOrdered By: Derick Sorenson on 12-21-2024 CO2 [Moles/Vol] 26.4 mmol/L 21.0-32.0 [facility] Chest PA and Lateralon 12-21 Chest PA and Lateral Normal [facility] Chest without Contraston Chest without Contrast Normal [facility] Chloride assayOrdered By: Ottoniel Sorenson on 12-21-2024 Chloride [Moles/Vol] 99 mmol/L 98-108 [facility] Emergency Department Summary on 12-21-2024 Emergency Department Summary Normal [facility] Eosinophil percentageOrdered By: Derick Sorenson on 12-21-2024 Eosinophils/100 WBC (Bld) 3.1 % 0-5 [facility] Erythrocyte distribution wid th ratioOrdered By: Derick Sorenson on 12-21-2024 Erythrocyte distribution width (RBC) [Ratio] 14.1 % 11.6-14.6 [facility] Erythrocyte distribution wid th standard deviationOrdered By: Derick Sorenson on 12-21-2024 Erythrocyte distribution width (RBC) [Ratio] 50.2 fl High 35.1-43.9 [facility] Glomerular filtration rate ( GFR) estimation/1.73 sq m using serum, plasma, or whole bOrdered By: Derick Sorenson on 12-21-2024 GFR/1.73 sq M.predicted among non-blacks MDRD (S/P/Bld) [Vol rate/Area] 46 mL/min/{1.73_m2} Low >60 [facility] Comment on above: mL/min/1.73m2 CKD-EP I Creatinine Equation (2020) Hematocrit Auto (Bld) [Volum e fraction]Ordered By: Derick Sorenson on 12-21-2024 Hematocrit (Bld) [Volume fraction] 40.5 % 40-54 [facility] Hemoglobin measurementOrdere d By: Derick Sorenson on 12-21-2024 Hemoglobin (Bld) [Mass/Vol] 13.9 g/dL 13.0-16.5 [facility] Immature granulocytes/100 WB C Auto (Bld)Ordered By: Derick Sorenson on 12-21-2024 Immature granulocytes/100 WBC (Bld) 0.700 % 0.0-0.9 [facility] Comment on above: IG% - Immature Granu locytes (promyelocytes, myelocytes and metamyelocytes) > 1% indicates that a LEFT SHIFT is Present. International normalized rat io (INR) calculationOrdered By: Derick Sorenson on 12-21-2024 INR Coag (Bld) [Relative time] 1.1 {INR} [facility] L499.0042on 12-21-2024 Trop T High Sen 42 ng/L High <=22 [facility] Comment on above: Performed By: #### L 499.0042 ####[facility] [address] [place], [place], [address] L499.0043on 12-21-2024 Trop T High Sen Normal <=22 [facility] Comment on above: Result Comment: Kim peralta via OM: dr morgan Performed By: #### L 499.0043 ####[facility] [address] [place], [place], [address] L501.4021on 12-21-2024 Trop T High Sen 44 ng/L High <=22 [facility] Comment on above: Performed By: #### L 300.3900, L100.0100, L501.4021, L300.4310 ####[facility] [address] [place], [place], [address] L503.7505on 12-21-2024 Natriuretic peptide B (Bld) [Mass/Vol] 542 pg/mL Normal <=1800 [facility] Comment on above: Result Comment: Hear t Failure Unlikely: < 300 pg/mLHeart Failure Likely< 50 Years: > 450 pg/mL50-75 Years: > 900 pg/mL>75 Years: > 1800 pg/mL Performed By: #### L 500.2500, L503.7505 ####[facility] [address] [place], [place], [id number] MCV (mean corpuscular volume ) determinationOrdered By: Derick Sorenson on 12-21-2024 MCV (RBC) [Entitic vol] 96.7 fL High 80-94 [facility] Mean corpuscular hemoglobin (MCH) determinationOrdered By: Derick Sorenson on 12-21-2024 MCH (RBC) [Entitic mass] 33.2 pg High 27.0-32.0 [facility] Mean corpuscular hemoglobin concentration (MCHC) determinationOrdered By: Derick Sorenson on 12-21-2024 MCHC (RBC) [Mass/Vol] 34.3 g/dL 32-36 [facility] Mean platelet volume determi nationOrdered By: Derick Sorenson on 12-21-2024 Platelet mean volume (Bld) [Entitic vol] 9.1 fL 6.2-12.0 [facility] Monocyte percentageOrdered B y: Derick Sorenson on 12-21-2024 Monocytes/100 WBC (Bld) 10.8 % High 0-10 [facility] Natriuretic peptide.B prohor lam N-Terminal [Mass/volume] in Serum or PlasmaOrdered By: Derick Sorenson on 12-21-2024 Natriuretic peptide.B prohormone N-Terminal [Mass/Vol] 542 pg/mL <1800 [facility] Comment on above: Heart Failure Unlike ly: < 300 pg/mLHeart Failure Likely< 50 Years: > 450 pg/mL50-75 Years: > 900 pg/mL>75 Years: > 1800 pg/mL Neutrophil percentageOrdered By: Derick Sorenson on 12-21-2024 Neutrophils/100 WBC (Bld) 60.1 % 47-70 [facility] Nucleated red blood cell per centageOrdered By: Derick Sorenson on 12-21-2024 Nucleated RBC/100 WBC (Bld) [Ratio] 0 % 0-5 [facility] Partial Thromboplast Timeon 12-21-2024 aPTT Coag (Bld) [Time] 29.7 s Normal 24.1-36.2 [facility] Comment on above: Performed By: #### L 300.3900, L100.0100, L501.4021, L300.4310 ####[facility] [address] [place], [place], [id number] Platelet countOrdered By: Ottnoiel Sorenson on 12-21-2024 Platelets (Bld) [#/Vol] 211 10*3/uL 150-450 [facility] Potassium measurement (mass/ volume)Ordered By: Derick Sorenson on 12-21-2024 Potassium (Unsp spec) [Mass/Vol] 3.8 mmol/L 3.3-5.1 [facility] Prothrombin Time w/INRon INR Coag (PPP) [Relative time] 1.1 {INR} Normal [facility] Comment on above: Performed By: #### L 300.3900, L100.0100, L501.4021, L300.4310 ####[facility] [address] [place], [address] PT Coag (PPP) [Time] 14.6 s Normal 11.7-14.9 [facility] Comment on above: Performed By: #### L 300.3900, L100.0100, L501.4021, L300.4310 ####[facility] [address] [place], [address] Prothrombin timeOrdered By: Derick Sorenson on 12-21-2024 PT Coag (PPP) [Time] 14.6 s 11.7-14.9 [facility] RBC Auto (Bld) [#/Vol]Ordere d By: Derick Sorenson on 12-21-2024 RBC (Bld) [#/Vol] 4.19 10*6/uL Low 4.6-6.2 [facility] Serum creatinine measurement (mass/volume)Ordered By: Derick Sorenson on 12-21-2024 Creatinine [Mass/Vol] 1.46 mg/dL High 0.70-1.20 [facility] Serum glucose measurement (m ass/volume)Ordered By: Derick Sorenson on 12-21-2024 Glucose [Mass/Vol] 63 mg/dL Low 70-99 [facility] Serum or plasma calcium odilon urement (mass/volume)Ordered By: Derick Sorenson on 12-21-2024 Calcium [Mass/Vol] 9.9 mg/dL 7.6-11.0 [facility] Serum or plasma urea nitroge n measurement (mass/volume)Ordered By: Derick Sorenson on 12-21-2024 Urea nitrogen [Mass/Vol] 14 mg/dL 4-19 [facility] Sodium levelOrdered By: Laisha Sorenson on 12-21-2024 Sodium [Moles/Vol] 139 mmol/L 133-145 [facility] Troponin T.cardiac [Mass/vol ume] in Serum or Plasma by High sensitivity methodOrdered By: Derick Sorenson on 12-21-2024 Troponin T.cardiac High sensitivity method [Mass/Vol] 42 ng/L High <22 [facility] Troponin T.cardiac High sensitivity method [Mass/Vol] 44 ng/L High <22 [facility] White blood cell (WBC) count Ordered By: Derick Sorenson on 12-21-2024 WBC (Bld) [#/Vol] 5.6 10*3/uL 4.4-11.0 [facility] CNOVon 12-13-2024 CNOV Office Visit (PODIWS ) KARLEERENETTAJEROMEOLMAN LOPEZ ([id number]) 1935 M Date Time Provider Department 12/13/24 [...] Objective: Patient presents to clinic ambulating in [facility] Vasc: DP and PT pulses are faintly [...] by mout (more content not included)... Normal [facility] Chest PA and Lateralon 12-09 Chest PA and Lateral Normal [facility] MR/BMS.IMBon 12-09-2024 MR/BMS.IMB Normal [facility] Absolute lymphocyte countOrd ered By: Keron Maciel on 11-25-2024 Lymphocytes Auto (Unsp spec) [#/Vol] 0.98 10*3/uL 0.83-4.51 [facility] Absolute neutrophil countOrd ered By: Keron Maciel on 11-25-2024 Neutrophils (Bld) [#/Vol] 4.3 10*3/uL 2.0-7.7 [facility] Anion gap in Serum or Plasma Ordered By: Keron Maciel on 11-25-2024 Anion gap [Moles/Vol] 14 mmol/L 5-15 [facility] Automated lymphocyte count a s percentage of total leukocytesOrdered By: Keron Maciel on 11-25-2024 Lymphocytes/100 WBC Auto (Unsp spec) 15.9 % Low [facility] BUN/creatinine ratioOrdered By: Keron Maciel on 11-25-2024 Urea nitrogen/Creatinine [Mass ratio] 13.8 mg/mg 04-07 [facility] Basic Metabolic Profile (BMP )on 11-25-2024 BUN/CRE 13.8 RATIO Normal 04-07 [facility] Comment on above: Performed By: #### L 500.2500, L503.7505, L100.0100 ####[facility] [address] [place], [address] Calcium [Mass/Vol] 10.1 mg/dL Normal 7.6-11.0 [facility] Comment on above: Performed By: #### L 500.2500, L503.7505, L100.0100 ####[facility] [address] [place], [address] Chloride [Moles/Vol] 101 mmol/L Normal 98-108 [facility] Comment on above: Performed By: #### L 500.2500, L503.7505, L100.0100 ####[facility] [address] [place], [address] CO2 [Moles/Vol] 24.3 mmol/L Normal 21.0-32.0 [facility] Comment on above: Performed By: #### L 500.2500, L503.7505, L100.0100 ####[facility] [address] [place], [address] Creatinine [Mass/Vol] 1.60 mg/dL High 0.70-1.20 [facility] Comment on above: Performed By: #### L 500.2500, L503.7505, L100.0100 ####[facility] [address] [place], [address] GAP 14 Normal 5-15 [facility] Comment on above: Performed By: #### L 500.2500, L503.7505, L100.0100 ####[facility] [address] [place], [address] GFR/1.73 sq M.predicted among non-blacks MDRD (S/P/Bld) [Vol rate/Area] 41 mL/min/{1.73_m2} Low >60 [facility] Comment on above: Result Comment: mL/m in/1.73m2 CKD-EPI Creatinine Equation (2020) Performed By: #### L 500.2500, L503.7505, L100.0100 ####[facility] [address] [place], [address] Glucose [Mass/Vol] 202 mg/dL High 70-99 [facility] Comment on above: Performed By: #### L 500.2500, L503.7505, L100.0100 ####[facility] [address] [place], [address] Potassium [Moles/Vol] 4.6 mmol/L Normal 3.3-5.1 [facility] Comment on above: Performed By: #### L 500.2500, L503.7505, L100.0100 ####[facility] [address] [place], [address] Sodium [Moles/Vol] 140 mmol/L Normal 133-145 [facility] Comment on above: Performed By: #### L 500.2500, L503.7505, L100.0100 ####[facility] [address] [place], [address] Urea nitrogen [Mass/Vol] 22 mg/dL High 4-19 [facility] Comment on above: Performed By: #### L 500.2500, L503.7505, L100.0100 ####[facility] [address] [place], [address] Basophil percentageOrdered B y: Keron Maciel on 11-25-2024 Basophils/100 WBC (Bld) 0.6 % 0-1 [facility] CBC W/Diff, Automatedon Absolute Lymph 0.98 X10 3/uL Normal 0.83-4.51 [facility] Comment on above: Performed By: #### L 500.2500, L503.7505, L100.0100 ####[facility] [address] [place], [address] Absolute Neut 4.3 X10 3/uL Normal 2.0-7.7 [facility] Comment on above: Performed By: #### L 500.2500, L503.7505, L100.0100 ####[facility] [address] [place], [address] Basophils/100 WBC (Bld) 0.6 % Normal 0-1 [facility] Comment on above: Performed By: #### L 500.2500, L503.7505, L100.0100 ####[facility] [address] [place], [address] Eosinophils/100 WBC (Bld) 1.9 % Normal 0-5 [facility] Comment on above: Performed By: #### L 500.2500, L503.7505, L100.0100 ####[facility] [address] [place], [address] Erythrocyte distribution width (RBC) [Ratio] 14.6 % Normal 11.6-14.6 [facility] Comment on above: Performed By: #### L 500.2500, L503.7505, L100.0100 ####[facility] [address] [place], [address] Hematocrit (Bld) [Volume fraction] 39.6 % Low 40-54 [facility] Comment on above: Performed By: #### L 500.2500, L503.7505, L100.0100 ####[facility] [address] [place], [address] Hemoglobin (Bld) [Mass/Vol] 13.5 g/dL Normal 13.0-16.5 [facility] Comment on above: Performed By: #### L 500.2500, L503.7505, L100.0100 ####[facility] [address] [place], [address] IG% 2.100 High 0.0-0.9 [facility] Comment on above: Result Comment: IG% - Immature Granulocytes (promyelocytes, myelocytes andmetamyelocytes) > 1% indicates that a LEFT SHIFT is Present. Performed By: #### L 500.2500, L503.7505, L100.0100 ####[facility] [address] [place], [address] Lymphocytes/100 WBC (Bld) 15.9 % Low 19-41 [facility] Comment on above: Performed By: #### L 500.2500, L503.7505, L100.0100 ####[facility] [address] [place], [address] MCH (RBC) [Entitic mass] 33.4 pg High 27.0-32.0 [facility] Comment on above: Performed By: #### L 500.2500, L503.7505, L100.0100 ####[facility] [address] [place], [address] MCHC (RBC) [Mass/Vol] 34.1 g/dL Normal 32-36 [facility] Comment on above: Performed By: #### L 500.2500, L503.7505, L100.0100 ####[facility] [address] [place], [address] MCV (RBC) [Entitic vol] 98.0 fL High 80-94 [facility] Comment on above: Performed By: #### L 500.2500, L503.7505, L100.0100 ####[facility] [address] [place], [address] Monocytes/100 WBC (Bld) 9.7 % Normal 0-10 [facility] Comment on above: Performed By: #### L 500.2500, L503.7505, L100.0100 ####[facility] [address] [place], [address] Neutrophils/100 WBC (Bld) 69.8 % Normal 47-70 [facility] Comment on above: Performed By: #### L 500.2500, L503.7505, L100.0100 ####[facility] [address] [place], [address] Nucleated RBC (Bld) [#/Vol] 0 10*3/uL Normal 0-5 [facility] Comment on above: Performed By: #### L 500.2500, L503.7505, L100.0100 ####[facility] [address] [place], [address] Platelet mean volume (Bld) [Entitic vol] 9.6 fL Normal 6.2-12.0 [facility] Comment on above: Performed By: #### L 500.2500, L503.7505, L100.0100 ####[facility] [address] [place], [address] Platelets (Bld) [#/Vol] 230 10*3/uL Normal 150-450 [facility] Comment on above: Performed By: #### L 500.2500, L503.7505, L100.0100 ####[facility] [address] [place], [address] RBC (Bld) [#/Vol] 4.04 10*6/uL Low 4.6-6.2 [facility] Comment on above: Performed By: #### L 500.2500, L503.7505, L100.0100 ####[facility] [address] [place], [address] RDW SD 53.1 fl High 35.1-43.9 [facility] Comment on above: Performed By: #### L 500.2500, L503.7505, L100.0100 ####[facility] [address] [place], [address] WBC (Bld) [#/Vol] 6.2 10*3/uL Normal 4.4-11.0 [facility] Comment on above: Performed By: #### L 500.2500, L503.7505, L100.0100 ####[facility] [address] [place], [address] Carbon dioxide, total [Moles /volume] in Central venous bloodOrdered By: Keron Maciel on 11-25-2024 CO2 [Moles/Vol] 24.3 mmol/L 21.0-32.0 [facility] Chest PA and Lateralon 11-25 Chest PA and Lateral Normal [facility] Chloride assayOrdered By: Madeleine Maciel on 11-25-2024 Chloride [Moles/Vol] 101 mmol/L 98-108 [facility] Eosinophil percentageOrdered By: Keron Maciel on 11-25-2024 Eosinophils/100 WBC (Bld) 1.9 % 0-5 [facility] Erythrocyte distribution wid th ratioOrdered By: Keron Maciel on 11-25-2024 Erythrocyte distribution width (RBC) [Ratio] 14.6 % 11.6-14.6 [facility] Erythrocyte distribution wid th standard deviationOrdered By: Keron Maciel on 11-25-2024 Erythrocyte distribution width (RBC) [Ratio] 53.1 fl High 35.1-43.9 [facility] Glomerular filtration rate ( GFR) estimation/1.73 sq m using serum, plasma, or whole bOrdered By: Keron Maciel on 11-25-2024 GFR/1.73 sq M.predicted among non-blacks MDRD (S/P/Bld) [Vol rate/Area] 41 mL/min/{1.73_m2} Low >60 [facility] Comment on above: mL/min/1.73m2 CKD-EP I Creatinine Equation (2020) Hematocrit Auto (Bld) [Volum e fraction]Ordered By: Keron Maciel on 11-25-2024 Hematocrit (Bld) [Volume fraction] 39.6 % Low 40-54 [facility] Hemoglobin measurementOrdere d By: Keron Maciel on 11-25-2024 Hemoglobin (Bld) [Mass/Vol] 13.5 g/dL 13.0-16.5 [facility] Immature granulocytes/100 WB C Auto (Bld)Ordered By: Keron Maciel on 11-25-2024 Immature granulocytes/100 WBC (Bld) 2.100 % High 0.0-0.9 [facility] Comment on above: IG% - Immature Granu locytes (promyelocytes, myelocytes and metamyelocytes) > 1% indicates that a LEFT SHIFT is Present. L503.7505on 11-25-2024 Natriuretic peptide B (Bld) [Mass/Vol] 502 pg/mL Normal <=1800 [facility] Comment on above: Result Comment: Hear t Failure Unlikely: < 300 pg/mLHeart Failure Likely< 50 Years: > 450 pg/mL50-75 Years: > 900 pg/mL>75 Years: > 1800 pg/mL Performed By: #### L 500.2500, L503.7505, L100.0100 ####[facility] [address] [facility] [place], [address] MCV (mean corpuscular volume ) determinationOrdered By: Keron Maciel on 11-25-2024 MCV (RBC) [Entitic vol] 98.0 fL High 80-94 [facility] MR/BMS.IMBon 11-25-2024 MR/BMS.IMB Normal [facility] Mean corpuscular hemoglobin (MCH) determinationOrdered By: Keron Maciel on 11-25-2024 MCH (RBC) [Entitic mass] 33.4 pg High 27.0-32.0 [facility] Mean corpuscular hemoglobin concentration (MCHC) determinationOrdered By: Keron Maciel on 11-25-2024 MCHC (RBC) [Mass/Vol] 34.1 g/dL 32-36 [facility] Mean platelet volume determi nationOrdered By: Keron Macile on 11-25-2024 Platelet mean volume (Bld) [Entitic vol] 9.6 fL 6.2-12.0 [facility] Monocyte percentageOrdered B y: Keron Maciel on 11-25-2024 Monocytes/100 WBC (Bld) 9.7 % 0-10 [facility] Natriuretic peptide.B prohor lam N-Terminal [Mass/volume] in Serum or PlasmaOrdered By: Keron Maciel on 11-25-2024 Natriuretic peptide.B prohormone N-Terminal [Mass/Vol] 502 pg/mL <1800 [facility] Comment on above: Heart Failure Unlike ly: < 300 pg/mLHeart Failure Likely< 50 Years: > 450 pg/mL50-75 Years: > 900 pg/mL>75 Years: > 1800 pg/mL Neutrophil percentageOrdered By: Keron Maciel on 11-25-2024 Neutrophils/100 WBC (Bld) 69.8 % 47-70 [facility] Nucleated red blood cell per centageOrdered By: Keron Maciel on 11-25-2024 Nucleated RBC/100 WBC (Bld) [Ratio] 0 % 0-5 [facility] Platelet countOrdered By: Madeleine Maciel on 11-25-2024 Platelets (Bld) [#/Vol] 230 10*3/uL 150-450 [facility] Potassium measurement (mass/ volume)Ordered By: Keron Maciel on 11-25-2024 Potassium (Unsp spec) [Mass/Vol] 4.6 mmol/L 3.3-5.1 [facility] RBC Auto (Bld) [#/Vol]Ordere d By: Keron Maciel on 11-25-2024 RBC (Bld) [#/Vol] 4.04 10*6/uL Low 4.6-6.2 [facility] Serum creatinine measurement (mass/volume)Ordered By: Keron Maciel on 11-25-2024 Creatinine [Mass/Vol] 1.60 mg/dL High 0.70-1.20 [facility] Serum glucose measurement (m ass/volume)Ordered By: Keron Maciel on 11-25-2024 Glucose [Mass/Vol] 202 mg/dL High 70-99 [facility] Serum or plasma calcium odilon urement (mass/volume)Ordered By: Keron Maciel on 11-25-2024 Calcium [Mass/Vol] 10.1 mg/dL 7.6-11.0 [facility] Serum or plasma urea nitroge n measurement (mass/volume)Ordered By: Keron Maciel on 11-25-2024 Urea nitrogen [Mass/Vol] 22 mg/dL High 4-19 [facility] Sodium levelOrdered By: Beatrice Maciel on 11-25-2024 Sodium [Moles/Vol] 140 mmol/L 133-145 [facility] White blood cell (WBC) count Ordered By: Keron Maciel on 11-25-2024 WBC (Bld) [#/Vol] 6.2 10*3/uL 4.4-11.0 [facility] Urine Cultureon 11-22-2024 URC Normal [facility] Comment on above: Performed By: #### M 100.2200 ####[facility] [address] [place], [address] Basic Metabolic Profile (BMP )on 11-20-2024 BUN/CRE 14.4 RATIO Normal 10-20 [facility] Comment on above: Performed By: #### L 503.7505, L100.0100, L501.9520, L501.5200, L500.2500 ####[facility] [address] [place], [address] Calcium [Mass/Vol] 10.0 mg/dL Normal 7.6-11.0 [facility] Comment on above: Performed By: #### L 503.7505, L100.0100, L501.9520, L501.5200, L500.2500 ####[facility] [address] [place], [address] Chloride [Moles/Vol] 97 mmol/L Low 98-108 [facility] Comment on above: Performed By: #### L 503.7505, L100.0100, L501.9520, L501.5200, L500.2500 ####[facility] [address] [place], [address] CO2 [Moles/Vol] 27.2 mmol/L Normal 21.0-32.0 [facility] Comment on above: Performed By: #### L 503.7505, L100.0100, L501.9520, L501.5200, L500.2500 ####[facility] [address] [place], [address] Creatinine [Mass/Vol] 1.77 mg/dL High 0.70-1.20 [facility] Comment on above: Performed By: #### L 503.7505, L100.0100, L501.9520, L501.5200, L500.2500 ####[facility] [address] [place], [address] ECRCL 30.88 ml/min Low 50-250 [facility] Comment on above: Performed By: #### L 503.7505, L100.0100, L501.9520, L501.5200, L500.2500 ####[facility] [address] [place], [address] GAP 13 Normal 5-15 [facility] Comment on above: Performed By: #### L 503.7505, L100.0100, L501.9520, L501.5200, L500.2500 ####[facility] [address] [place], [address] GFR/1.73 sq M.predicted among non-blacks MDRD (S/P/Bld) [Vol rate/Area] 37 mL/min/{1.73_m2} Low >60 [facility] Comment on above: Result Comment: mL/m in/1.73m2 CKD-EPI Creatinine Equation (2020) Performed By: #### L 503.7505, L100.0100, L501.9520, L501.5200, L500.2500 ####[facility] [address] [place], [address] Glucose [Mass/Vol] 102 mg/dL High 70-99 [facility] Comment on above: Performed By: #### L 503.7505, L100.0100, L501.9520, L501.5200, L500.2500 ####[facility] [address] [place], [address] Potassium [Moles/Vol] 4.9 mmol/L Normal 3.3-5.1 [facility] Comment on above: Result Comment: Hemo lysis present, Results??could be affected.?? Performed By: #### L 503.7505, L100.0100, L501.9520, L501.5200, L500.2500 ####[facility] [address] [place], [address] Sodium [Moles/Vol] 138 mmol/L Normal 133-145 [facility] Comment on above: Performed By: #### L 503.7505, L100.0100, L501.9520, L501.5200, L500.2500 ####[facility] [address] [place], [address] Urea nitrogen [Mass/Vol] 26 mg/dL High 4-19 [facility] Comment on above: Performed By: #### L 503.7505, L100.0100, L501.9520, L501.5200, L500.2500 ####[facility] [address] [place], [address] L503.7505on 06-04-2025 Natriuretic peptide B (Bld) [Mass/Vol] 521 pg/mL Normal <=1800 [facility] Comment on above: Result Comment: Hear t Failure Unlikely: < 300 pg/mLHeart Failure Likely< 50 Years: > 450 pg/mL50-75 Years: > 900 pg/mL>75 Years: > 1800 pg/mL Performed By: #### L 503.7505, L100.0100, L501.9520, L501.5200, L500.2500 ####[facility] [address] [place], [address] M100.678on 11-20-2024 M100.678 SARS-CoV-2 (COVID 19 ) Negative INFLUENZA A Negative INFLUENZA B Negative RSV PCR Negative Normal [facility] Comment on above: Performed By: #### M 100.678, L400.0001 ####[facility] [address] [place], [address] Magnesiumon 11-20-2024 Magnesium [Mass/Vol] 2.1 mg/dL Normal 1.5-2.2 [facility] Comment on above: Performed By: #### L 503.7505, L100.0100, L501.9520, L501.5200, L500.2500 ####[facility] [address] [place], [address] Thyroid Stim Hormone (TSH)on 11-20-2024 TSH 1.790 uIU/mL Normal 0.300-4.200 [facility] Comment on above: Performed By: #### L 503.7505, L100.0100, L501.9520, L501.5200, L500.2500 ####[facility] [address] [place], [address] Urinalysis, Completeon 11-20 BACTERIA 2+ /hpf Normal None Seen [facility] Comment on above: Order Comment: COLLE CTOR TO SPECIFY Performed By: #### M 100.678, L400.0001 ####[facility] [address] [place], [address] WBC 50-100 SEEN Normal 0-5 [facility] Comment on above: Order Comment: COLLE CTOR TO SPECIFY Performed By: #### M 100.678, L400.0001 ####[facility] [address] [place], [address] 12 Lead EKGon 11-19-2024 12 Lead EKG Normal [facility] Absolute lymphocyte countOrd ered By: Helio Corrales on 11-19-2024 Lymphocytes Auto (Unsp spec) [#/Vol] 1.46 10*3/uL 0.83-4.51 [facility] Absolute neutrophil countOrd ered By: Helio Corrales on 11-19-2024 Neutrophils (Bld) [#/Vol] 4.8 10*3/uL 2.0-7.7 [facility] Anion gap in Serum or Plasma Ordered By: Helio Corrales on 11-19-2024 Anion gap [Moles/Vol] 13 mmol/L 5-15 [facility] Automated lymphocyte count a s percentage of total leukocytesOrdered By: Helio Corrales on 11-19-2024 Lymphocytes/100 WBC Auto (Unsp spec) 20.0 % 19-41 [facility] BUN/creatinine ratioOrdered By: Helio Corrales on 11-19-2024 Urea nitrogen/Creatinine [Mass ratio] 14.4 mg/mg 10-20 [facility] Basophil percentageOrdered B y: Helio Corrales on 11-19-2024 Basophils/100 WBC (Bld) 1.0 % 0-1 [facility] Bilirubin Test strip Ql (U)O rdered By: Helio Corrales on 11-19-2024 Bilirubin Ql (U) Negative Negative [facility] CBC W/Diff, Automatedon Absolute Lymph 1.46 X10 3/uL Normal 0.83-4.51 [facility] Comment on above: Performed By: #### L 503.7505, L100.0100, L501.9520, L501.5200, L500.2500 ####[facility] [address] [place], [address] Absolute Neut 4.8 X10 3/uL Normal 2.0-7.7 [facility] Comment on above: Performed By: #### L 503.7505, L100.0100, L501.9520, L501.5200, L500.2500 ####[facility] [address] [place], [address] Basophils/100 WBC (Bld) 1.0 % Normal 0-1 [facility] Comment on above: Performed By: #### L 503.7505, L100.0100, L501.9520, L501.5200, L500.2500 ####[facility] [address] [place], [address] Eosinophils/100 WBC (Bld) 2.1 % Normal 0-5 [facility] Comment on above: Performed By: #### L 503.7505, L100.0100, L501.9520, L501.5200, L500.2500 ####[facility] [address] [place], [address] Erythrocyte distribution width (RBC) [Ratio] 14.6 % Normal 11.6-14.6 [facility] Comment on above: Performed By: #### L 503.7505, L100.0100, L501.9520, L501.5200, L500.2500 ####[facility] [address] [place], [address] Hematocrit (Bld) [Volume fraction] 40.4 % Normal 40-54 [facility] Comment on above: Performed By: #### L 503.7505, L100.0100, L501.9520, L501.5200, L500.2500 ####[facility] [address] [place], [address] Hemoglobin (Bld) [Mass/Vol] 13.4 g/dL Normal 13.0-16.5 [facility] Comment on above: Performed By: #### L 503.7505, L100.0100, L501.9520, L501.5200, L500.2500 ####[facility] [address] [place], [address] IG% 2.300 High 0.0-0.9 [facility] Comment on above: Result Comment: IG% - Immature Granulocytes (promyelocytes, myelocytes andmetamyelocytes) > 1% indicates that a LEFT SHIFT is Present. Performed By: #### L 503.7505, L100.0100, L501.9520, L501.5200, L500.2500 ####[facility] [address] [place], [address] Lymphocytes/100 WBC (Bld) 20.0 % Normal 19-41 [facility] Comment on above: Performed By: #### L 503.7505, L100.0100, L501.9520, L501.5200, L500.2500 ####[facility] [address] [place], [address] MCH (RBC) [Entitic mass] 32.4 pg High 27.0-32.0 [facility] Comment on above: Performed By: #### L 503.7505, L100.0100, L501.9520, L501.5200, L500.2500 ####[facility] [address] [place], [address] MCHC (RBC) [Mass/Vol] 33.2 g/dL Normal 32-36 [facility] Comment on above: Performed By: #### L 503.7505, L100.0100, L501.9520, L501.5200, L500.2500 ####[facility] [address] [place], [address] MCV (RBC) [Entitic vol] 97.6 fL High 80-94 [facility] Comment on above: Performed By: #### L 503.7505, L100.0100, L501.9520, L501.5200, L500.2500 ####[facility] [address] [place], [address] Monocytes/100 WBC (Bld) 9.5 % Normal 0-10 [facility] Comment on above: Performed By: #### L 503.7505, L100.0100, L501.9520, L501.5200, L500.2500 ####[facility] [address] [place], [address] Neutrophils/100 WBC (Bld) 65.1 % Normal 47-70 [facility] Comment on above: Performed By: #### L 503.7505, L100.0100, L501.9520, L501.5200, L500.2500 ####[facility] [address] [place], [address] Nucleated RBC (Bld) [#/Vol] 0 10*3/uL Normal 0-5 [facility] Comment on above: Performed By: #### L 503.7505, L100.0100, L501.9520, L501.5200, L500.2500 ####[facility] [address] [place], [address] Platelet mean volume (Bld) [Entitic vol] 8.8 fL Normal 6.2-12.0 [facility] Comment on above: Performed By: #### L 503.7505, L100.0100, L501.9520, L501.5200, L500.2500 ####[facility] [address] [place], [address] Platelets (Bld) [#/Vol] 233 10*3/uL Normal 150-450 [facility] Comment on above: Performed By: #### L 503.7505, L100.0100, L501.9520, L501.5200, L500.2500 ####[facility] [address] [place], [address] RBC (Bld) [#/Vol] 4.14 10*6/uL Low 4.6-6.2 [facility] Comment on above: Performed By: #### L 503.7505, L100.0100, L501.9520, L501.5200, L500.2500 ####[facility] [address] [place], [address] RDW SD 52.4 fl High 35.1-43.9 [facility] Comment on above: Performed By: #### L 503.7505, L100.0100, L501.9520, L501.5200, L500.2500 ####[facility] [address] [place], [address] WBC (Bld) [#/Vol] 7.3 10*3/uL Normal 4.4-11.0 [facility] Comment on above: Performed By: #### L 503.7505, L100.0100, L501.9520, L501.5200, L500.2500 ####[facility] [address] [place], [address] Carbon dioxide, total [Moles /volume] in Central venous bloodOrdered By: Helio Corrales on 11-19-2024 CO2 [Moles/Vol] 27.2 mmol/L 21.0-32.0 [facility] Chest PA and Lateralon 11-19 Chest PA and Lateral Normal [facility] Chloride assayOrdered By: Sharon Corrales on 11-19-2024 Chloride [Moles/Vol] 97 mmol/L Low 98-108 [facility] Emergency Department Summary on 11-19-2024 Emergency Department Summary Normal [facility] Eosinophil percentageOrdered By: Helio Corrales on 11-19-2024 Eosinophils/100 WBC (Bld) 2.1 % 0-5 [facility] Erythrocyte distribution wid th ratioOrdered By: Helio Corrales on 11-19-2024 Erythrocyte distribution width (RBC) [Ratio] 14.6 % 11.6-14.6 [facility] Erythrocyte distribution wid th standard deviationOrdered By: Helio Corrales on 11-19-2024 Erythrocyte distribution width (RBC) [Ratio] 52.4 fl High 35.1-43.9 [facility] Glomerular filtration rate ( GFR) estimation/1.73 sq m using serum, plasma, or whole bOrdered By: Helio Corrales on 11-19-2024 GFR/1.73 sq M.predicted among non-blacks MDRD (S/P/Bld) [Vol rate/Area] 37 mL/min/{1.73_m2} Low >60 [facility] Comment on above: mL/min/1.73m2 CKD-EP I Creatinine Equation (2020) Hematocrit Auto (Bld) [Volum e fraction]Ordered By: Helio Corrales on 11-19-2024 Hematocrit (Bld) [Volume fraction] 40.4 % 40-54 [facility] Hemoglobin measurementOrdere d By: Helio Corrales on 11-19-2024 Hemoglobin (Bld) [Mass/Vol] 13.4 g/dL 13.0-16.5 [facility] Immature granulocytes/100 WB C Auto (Bld)Ordered By: Helio Corrales on 11-19-2024 Immature granulocytes/100 WBC (Bld) 2.300 % High 0.0-0.9 [facility] Comment on above: IG% - Immature Granu locytes (promyelocytes, myelocytes and metamyelocytes) > 1% indicates that a LEFT SHIFT is Present. Influenza virus A and B and SARS-CoV-2 (COVID-19) and Respiratory syncytial virus RNAOrdered By: Helio Corrales on 11-19-2024 SARS-CoV-2 (COVID-19) RNA VÍCTOR+probe Ql (Unsp spec) [facility] Ketones Test strip Ql (U)Ord ered By: Helio Corrales on 11-19-2024 Ketones Ql (U) Negative Negative [facility] MCV (mean corpuscular volume ) determinationOrdered By: Helio Corrales on 11-19-2024 MCV (RBC) [Entitic vol] 97.6 fL High 80-94 [facility] Magnesium measurement (mass/ volume)Ordered By: Helio Corrales on 11-19-2024 Magnesium (Unsp spec) [Mass/Vol] 2.1 mg/dL 1.5-2.2 [facility] Mean corpuscular hemoglobin (MCH) determinationOrdered By: Helio Corrales on 11-19-2024 MCH (RBC) [Entitic mass] 32.4 pg High 27.0-32.0 [facility] Mean corpuscular hemoglobin concentration (MCHC) determinationOrdered By: Helio Corrales on 11-19-2024 MCHC (RBC) [Mass/Vol] 33.2 g/dL 32-36 [facility] Mean platelet volume determi nationOrdered By: Helio Corrales on 11-19-2024 Platelet mean volume (Bld) [Entitic vol] 8.8 fL 6.2-12.0 [facility] Microscopic analysis of urin e for red blood cells (RBC)Ordered By: Helio Corrales on 11-19-2024 Microscopic analysis of urine for red blood cells (RBC) 0 SEEN /hpf 0-5 [facility] Monocyte percentageOrdered B y: Helio Corrales on 11-19-2024 Monocytes/100 WBC (Bld) 9.5 % 0-10 [facility] Mucus LM Ql (Urine sed)Order ed By: Helio Corrales on 11-19-2024 Mucus Ql (Urine sed) 0 SEEN /hpf [facility] Natriuretic peptide.B prohor lam N-Terminal [Mass/volume] in Serum or PlasmaOrdered By: Helio Corrales on 11-19-2024 Natriuretic peptide.B prohormone N-Terminal [Mass/Vol] 521 pg/mL <1800 [facility] Comment on above: Heart Failure Unlike ly: < 300 pg/mLHeart Failure Likely< 50 Years: > 450 pg/mL50-75 Years: > 900 pg/mL>75 Years: > 1800 pg/mL Neutrophil percentageOrdered By: Helio Corrales on 11-19-2024 Neutrophils/100 WBC (Bld) 65.1 % 47-70 [facility] Nitrite Test strip Ql (U)Ord ered By: Helio Corrales on 11-19-2024 Nitrite Ql (U) Negative Negative [facility] Nucleated red blood cell per centageOrdered By: Helio Corrales on 11-19-2024 Nucleated RBC/100 WBC (Bld) [Ratio] 0 % 0-5 [facility] Platelet countOrdered By: Sharon Corrales on 11-19-2024 Platelets (Bld) [#/Vol] 233 10*3/uL 150-450 [facility] Potassium measurement (mass/ volume)Ordered By: Helio Corrales on 11-19-2024 Potassium (Unsp spec) [Mass/Vol] 4.9 mmol/L 3.3-5.1 [facility] Comment on above: Hemolysis present, R esults could be affected. Protein Test strip Ql (U)Ord ered By: Helio Corrales on 11-19-2024 Protein Ql (U) 30 mg/dl High Negative [facility] RBC Auto (Bld) [#/Vol]Ordere d By: Helio Corrales on 11-19-2024 RBC (Bld) [#/Vol] 4.14 10*6/uL Low 4.6-6.2 [facility] Serum creatinine measurement (mass/volume)Ordered By: Helio Corrales on 11-19-2024 Creatinine [Mass/Vol] 1.77 mg/dL High 0.70-1.20 [facility] Serum glucose measurement (m ass/volume)Ordered By: Helio Corrales on 11-19-2024 Glucose [Mass/Vol] 102 mg/dL High 70-99 [facility] Serum or plasma calcium odilon urement (mass/volume)Ordered By: Helio Corrales on 11-19-2024 Calcium [Mass/Vol] 10.0 mg/dL 7.6-11.0 [facility] Serum or plasma urea nitroge n measurement (mass/volume)Ordered By: Helio Corrales on 11-19-2024 Urea nitrogen [Mass/Vol] 26 mg/dL High 4-19 [facility] Sodium levelOrdered By: Soto Corrales on 11-19-2024 Sodium [Moles/Vol] 138 mmol/L 133-145 [facility] Squamous epithelial cells de tection in urine sediment by light microscopyOrdered By: Helio Corrales on 11-19-2024 Epithelial cells.squamous LM Ql (Urine sed) 0 SEEN /hpf 0-5 [facility] TSH DL <= 0.005 mIU/L QnOrde red By: Helio Corrales on 11-19-2024 TSH Qn 1.790 uIU/mL 0.300-4.200 [facility] Urinalysis, Completeon 11-19 EPI,SQUAMOUS 0 SEEN Normal 0-5 [facility] Comment on above: Order Comment: LOIS CTOR TO SPECIFY Performed By: #### M 100.678, L400.0001 ####[facility] [address] [place], [address] Mucus Ql (Urine sed) 0 SEEN Normal [facility] Comment on above: Order Comment: LOIS CTOR TO SPECIFY Performed By: #### M 100.678, L400.0001 ####[facility] [address] [place], [address] RBC 0 SEEN Normal 0-5 [facility] Comment on above: Order Comment: LOIS CTOR TO SPECIFY Performed By: #### M 100.678, L400.0001 ####[facility] [address] [place], [address] Urine clarityOrdered By: Jovany Corrales on 11-19-2024 Clarity (U) Sl. Cloudy Clear [facility] Urine color determinationOrd ered By: Helio Corrales on 11-19-2024 Color (U) Yellow Yellow [facility] Urine cultureOrdered By: Jovany Corrales on 11-19-2024 Bacteria identified Cx Nom (U) Enterobacter cloacae complex Abnormal [facility] Urine glucose detectionOrder ed By: Helio Corrales on 11-19-2024 Glucose Ql (U) Normal mg/dl Normal [facility] Urine leukocyte esterase det ection by dipstickOrdered By: Helio Corrales on 11-19-2024 Leukocyte esterase Test strip Ql (U) 500 /ul High Negative [facility] Urine pHOrdered By: Helio randle on 11-19-2024 pH (U) 6.0 [pH] 5.0 - 8.0 [facility] Urine sediment bacteria coun t by microscopy (number/high power field)Ordered By: Helio Corrales on 11-19-2024 Bacteria LM.HPF (Urine sed) [#/Area] 2 /[HPF] None Seen [facility] Urine specific gravity measu rementOrdered By: Helio Corrales on 11-19-2024 Specific gravity (U) [Rel density] 1.015 1.002-1.030 [facility] Urine urobilinogen measureme ntOrdered By: Helio Corrales on 11-19-2024 Urobilinogen Ql (U) Normal mg/dl Normal [facility] White blood cell (WBC) count Ordered By: Helio Corrales on 11-19-2024 WBC (Bld) [#/Vol] 7.3 10*3/uL 4.4-11.0 [facility] White blood cell countOrdere d By: Helio Corrales on 11-19-2024 White blood cell count 50-100 SEEN /hpf 0-5 [facility] CNOVon 09-06-2024 CNOV Office Visit (PODIWS ) OLMAN SYED ([id number]) 1935 M Date Time Provider Department 09/06/24 [...] RTC in 3-4 months. EMILY Duff Matthew 3/21/2025 1:58 PM Signed Diabetes Foot [...] (or decreased sensation in your feet) a jack frame tender should always cut your toenails. Be Careful [...] more t (more content not included)... Normal [facility] Neurology Visit Reporton Neurology Visit Report Normal [facility] MR/BMS.IMBon 07-25-2024 MR/BMS.IMB Normal [facility] Cerv Spine 2 or 3 Viewson Cerv Spine 2 or 3 Views Normal [facility] MR/BMS.IMBon 06-24-2024 MR/BMS.IMB Normal [facility] Bedside Glucoseon 06-16-2024 FINGERSTICK GLU 219 mg/dL High 74-106 [facility] Comment on above: Result Comment: NAGI GEMENT OF PATIENT CARE PER NURSING PROTOCOL Performed By: #### L 501.080 ####[facility] [address] [place], [address] FINGERSTICK GLU 130 mg/dL High 74-106 [facility] Comment on above: Result Comment: NAGI GEMENT OF PATIENT CARE PER NURSING PROTOCOL Performed By: #### L 501.080 ####[facility] [address] [place], [address] Discharge Instructionon 05-20 Discharge Instruction Normal [facility] Urine Drug Screen (VISTA)on 06-16-2024 AMPHETAMINES Negative Normal <1000 ng/mL [facility] Comment on above: Order Comment: SENT LABEL TO PCU TO COLLECT Performed By: #### L 501.4020, L501.9100, L501.9520, L505.5000, L506.0250, L500.4100, L503.0105 ####[facility] [address] [place], [address] BARBITIURATES Negative Normal < 200 ng/mL [facility] Comment on above: Order Comment: SENT LABEL TO PCU TO COLLECT Performed By: #### L 501.4020, L501.9100, L501.9520, L505.5000, L506.0250, L500.4100, L503.0105 ####[facility] [address] [place], [address] BENZODIAZIPINE Negative Normal < 200 ng/mL [facility] Comment on above: Order Comment: SENT LABEL TO PCU TO COLLECT Performed By: #### L 501.4020, L501.9100, L501.9520, L505.5000, L506.0250, L500.4100, L503.0105 ####[facility] [address] [place], [address] COCAINE Negative Normal < 300 ng/mL [facility] Comment on above: Order Comment: SENT LABEL TO U TO COLLECT Performed By: #### L 501.4020, L501.9100, L501.9520, L505.5000, L506.0250, L500.4100, L503.0105 ####[facility] [address] [place], [address] ECSTACY Negative Normal < 500 ng/mL [facility] Comment on above: Order Comment: SENT LABEL TO U TO COLLECT Performed By: #### L 501.4020, L501.9100, L501.9520, L505.5000, L506.0250, L500.4100, L503.0105 ####[facility] [address] [place], [address] METHADONE Negative Normal < 300 ng/mL [facility] Comment on above: Order Comment: SENT LABEL TO U TO COLLECT Performed By: #### L 501.4020, L501.9100, L501.9520, L505.5000, L506.0250, L500.4100, L503.0105 ####[facility] [address] [place], [address] OPIATES Negative Normal < 300 ng/mL [facility] Comment on above: Order Comment: SENT LABEL TO PCU TO COLLECT Performed By: #### L 501.4020, L501.9100, L501.9520, L505.5000, L506.0250, L500.4100, L503.0105 ####[facility] [address] [place], [address] PCP Negative Normal < 25 ng/mL [facility] Comment on above: Order Comment: SENT LABEL TO PCU TO COLLECT Performed By: #### L 501.4020, L501.9100, L501.9520, L505.5000, L506.0250, L500.4100, L503.0105 ####[facility] [address] [place], [place], [id number] THC Negative Normal < 50 ng/mL [facility] Comment on above: Order Comment: SENT LABEL TO PCU TO COLLECT Performed By: #### L 501.4020, L501.9100, L501.9520, L505.5000, L506.0250, L500.4100, L503.0105 ####[facility] [address] [place], [place], [id number] VISTA UDS PH 5 Normal [facility] Comment on above: Order Comment: SENT LABEL TO PCU TO COLLECT Performed By: #### L 501.4020, L501.9100, L501.9520, L505.5000, L506.0250, L500.4100, L503.0105 ####[facility] [address] [place], [place], [id number] Alcohol, Blood (Medical)-Ser umon 06-15-2024 SERUM ETOH < 3.0 Normal [facility] Comment on above: Result Comment: The serum:whole blood ethanol ratio is approximately 1.14and varies slightly with hematocrit.Medical Alcohol reference interval and critical value innon-tolerant individuals; 50 - 100 Impairment 100 Intoxication 100 - 250 Severe Poisoning 250 - 400 Deep/possible fatal coma Performed By: #### L 501.4020, L501.9100, L501.9520, L505.5000, L506.0250, L500.4100, L503.0105 ####[facility] [address] [place], [place], [id number] Bedside Glucoseon 06-15-2024 FINGERSTICK GLU 117 mg/dL High 74-106 [facility] Comment on above: Result Comment: NAGI GEMENT OF PATIENT CARE PER NURSING PROTOCOL Performed By: #### L 501.080 ####[facility] [address] [place], [address] FINGERSTICK GLU 125 mg/dL High 74-106 [facility] Comment on above: Result Comment: NAGI GEMENT OF PATIENT CARE PER NURSING PROTOCOL Performed By: #### L 501.080 ####[facility] [address] [place], [address] FINGERSTICK GLU 150 mg/dL High 74-106 [facility] Comment on above: Result Comment: NAGI GEMENT OF PATIENT CARE PER NURSING PROTOCOL Performed By: #### L 501.080 ####[facility] [address] [place], [address] FINGERSTICK GLU 103 mg/dL Normal 74-106 [facility] Comment on above: Result Comment: NAGI GEMENT OF PATIENT CARE PER NURSING PROTOCOL Performed By: #### L 501.080 ####[facility] [address] [place], [address] FINGERSTICK GLU 66 mg/dL Low 74-106 [facility] Comment on above: Result Comment: NAGI GEMENT OF PATIENT CARE PER NURSING PROTOCOL Performed By: #### L 501.080 ####[facility] [address] [place], [address] FINGERSTICK GLU 69 mg/dL Low 74-106 [facility] Comment on above: Result Comment: NAGI GEMENT OF PATIENT CARE PER NURSING PROTOCOL Performed By: #### L 501.080 ####[facility] [address] [place], [address] Brain without Contraston Brain without Contrast Normal [facility] CBC W/Diff, Automatedon -2 ACANTHOCYTE RARE Normal [facility] Comment on above: Performed By: #### L 501.5200, L501.4020, L501.2300, L100.0100, L501.9985, L500.4050 ####[facility] [address] [place], [address] Anisocytosis Ql (Bld) 2+ Normal [facility] Comment on above: Performed By: #### L 501.5200, L501.4020, L501.2300, L100.0100, L501.9985, L500.4050 ####[facility] [address] [place], [address] CRENATED RBC 1+ Normal [facility] Comment on above: Performed By: #### L 501.5200, L501.4020, L501.2300, L100.0100, L501.9985, L500.4050 ####[facility] [address] [place], [address] MACROCYTOSIS 1+ Normal [facility] Comment on above: Performed By: #### L 501.5200, L501.4020, L501.2300, L100.0100, L501.9985, L500.4050 ####[facility] [address] [place], [address] MICROCYTIC 1+ Normal [facility] Comment on above: Performed By: #### L 501.5200, L501.4020, L501.2300, L100.0100, L501.9985, L500.4050 ####[facility] [address] [place], [address] POLYCHROMASIA 1+ Normal [facility] Comment on above: Performed By: #### L 501.5200, L501.4020, L501.2300, L100.0100, L501.9985, L500.4050 ####[facility] [address] [place], [address] SCHISTOCYTES RARE Normal [facility] Comment on above: Performed By: #### L 501.5200, L501.4020, L501.2300, L100.0100, L501.9985, L500.4050 ####[facility] [address] [place], [address] TARGET CELLS 2+ Normal [facility] Comment on above: Performed By: #### L 501.5200, L501.4020, L501.2300, L100.0100, L501.9985, L500.4050 ####[facility] [address] [place], [address] TEAR DROP 1+ Normal [facility] Comment on above: Performed By: #### L 501.5200, L501.4020, L501.2300, L100.0100, L501.9985, L500.4050 ####[facility] [address] [place], [address] SMEAR COMMENT SCANNED Normal [facility] Comment on above: Performed By: #### L 501.5200, L501.4020, L501.2300, L100.0100, L501.9985, L500.4050 ####[facility] [address] [place], [address] Anisocytosis Ql (Bld) 2+ Normal [facility] Comment on above: Performed By: #### L 100.0100, L300.4310, L300.3900 ####[facility] [address] [place], [address] HYPOCHROMASIA RARE Normal [facility] Comment on above: Performed By: #### L 100.0100, L300.4310, L300.3900 ####[facility] [address] [place], [address] PLT EST ADEQUATE Normal ADEQ [facility] Comment on above: Performed By: #### L 501.5200, L501.4020, L501.2300, L100.0100, L501.9985, L500.4050 ####[facility] [address] [place], [address] Performed By: #### L 100.0100, L300.4310, L300.3900 ####[facility] [address] [place], [address] Comprehensive Metabolic Prof ilon 06-15-2024 Albumin [Mass/Vol] 3.0 g/dL Low 3.2-5.0 [facility] Comment on above: Order Comment: Comme nts: SPECIMEN #2'TROP' Serial specimen #1, #2 or #3: 2 Performed By: #### L 501.5200, L501.4020, L501.2300, L100.0100, L501.9985, L500.4050 ####[facility] [address] [place], [address] Albumin/Globulin [Mass ratio] 1.1 {ratio} Normal 0.9-2.4 [facility] Comment on above: Order Comment: Comme nts: SPECIMEN #2'TROP' Serial specimen #1, #2 or #3: 2 Performed By: #### L 501.5200, L501.4020, L501.2300, L100.0100, L501.9985, L500.4050 ####[facility] [address] [place], [address] ALK P 50 U/L Normal 45-117 [facility] Comment on above: Order Comment: Comme nts: SPECIMEN #2'TROP' Serial specimen #1, #2 or #3: 2 Performed By: #### L 501.5200, L501.4020, L501.2300, L100.0100, L501.9985, L500.4050 ####[facility] [address] [place], [address] ALT [Catalytic activity/Vol] 7 U/L Low 16-61 [facility] Comment on above: Order Comment: Comme nts: SPECIMEN #2'TROP' Serial specimen #1, #2 or #3: 2 Performed By: #### L 501.5200, L501.4020, L501.2300, L100.0100, L501.9985, L500.4050 ####[facility] [address] [place], [address] AST [Catalytic activity/Vol] 7 U/L Low 15-37 [facility] Comment on above: Order Comment: Comme nts: SPECIMEN #2'TROP' Serial specimen #1, #2 or #3: 2 Performed By: #### L 501.5200, L501.4020, L501.2300, L100.0100, L501.9985, L500.4050 ####[facility] [address] [place], [address] Bilirubin [Mass/Vol] 0.70 mg/dL Normal 0.20-1.00 [facility] Comment on above: Order Comment: Comme nts: SPECIMEN #2'TROP' Serial specimen #1, #2 or #3: 2 Result Comment: For patients on eltrombopag therapy, use of Dimension Marlin TBIL is not recommended. Performed By: #### L 501.5200, L501.4020, L501.2300, L100.0100, L501.9985, L500.4050 ####[facility] [address] [place], [address] BUN/CRE 12.4 RATIO Normal 10-20 [facility] Comment on above: Order Comment: Comme nts: SPECIMEN #2'TROP' Serial specimen #1, #2 or #3: 2 Performed By: #### L 501.5200, L501.4020, L501.2300, L100.0100, L501.9985, L500.4050 ####[facility] [address] [place], [address] CA,Total 8.9 mg/dL Normal 8.5-10.1 [facility] Comment on above: Order Comment: Comme nts: SPECIMEN #2'TROP' Serial specimen #1, #2 or #3: 2 Performed By: #### L 501.5200, L501.4020, L501.2300, L100.0100, L501.9985, L500.4050 ####[facility] [address] [place], [address] Chloride [Moles/Vol] 102 mmol/L Normal 98-107 [facility] Comment on above: Order Comment: Comme nts: SPECIMEN #2'TROP' Serial specimen #1, #2 or #3: 2 Performed By: #### L 501.5200, L501.4020, L501.2300, L100.0100, L501.9985, L500.4050 ####[facility] [address] [place], [address] CO2 [Moles/Vol] 29.0 mmol/L Normal 21.0-32.0 [facility] Comment on above: Order Comment: Comme nts: SPECIMEN #2'TROP' Serial specimen #1, #2 or #3: 2 Performed By: #### L 501.5200, L501.4020, L501.2300, L100.0100, L501.9985, L500.4050 ####[facility] [address] [place], [address] Creatinine [Mass/Vol] 2.25 mg/dL High 0.70-1.30 [facility] Comment on above: Order Comment: Comme nts: SPECIMEN #2'TROP' Serial specimen #1, #2 or #3: 2 Result Comment: The validity of the calculated GFR GFRAA in patients over70 years has not been determined. Clinical correlation isessential. Performed By: #### L 501.5200, L501.4020, L501.2300, L100.0100, L501.9985, L500.4050 ####[facility] [address] [place], [address] ECRCL 27.67 ml/min Normal [facility] Comment on above: Order Comment: Comme nts: SPECIMEN #2'TROP' Serial specimen #1, #2 or #3: 2 Performed By: #### L 501.5200, L501.4020, L501.2300, L100.0100, L501.9985, L500.4050 ####[facility] [address] [place], [address] EST GFR - AA 36 mL/min Low >60 [facility] Comment on above: Order Comment: Comme nts: SPECIMEN #2'TROP' Serial specimen #1, #2 or #3: 2 Result Comment: Afri can Malawian GFR Calc Performed By: #### L 501.5200, L501.4020, L501.2300, L100.0100, L501.9985, L500.4050 ####[facility] [address] [place], [address] GAP 6 Normal 5-15 [facility] Comment on above: Order Comment: Comme nts: SPECIMEN #2'TROP' Serial specimen #1, #2 or #3: 2 Performed By: #### L 501.5200, L501.4020, L501.2300, L100.0100, L501.9985, L500.4050 ####[facility] [address] [place], [address] GFR/1.73 sq M.predicted among non-blacks MDRD (S/P/Bld) [Vol rate/Area] 30 mL/min/{1.73_m2} Low >60 [facility] Comment on above: Order Comment: Comme nts: SPECIMEN #2'TROP' Serial specimen #1, #2 or #3: 2 Result Comment: Non- GFR Calc Performed By: #### L 501.5200, L501.4020, L501.2300, L100.0100, L501.9985, L500.4050 ####[facility] [address] [place], [address] Globulin (S) [Mass/Vol] 2.7 g/dL Normal 2.2-4.2 [facility] Comment on above: Order Comment: Comme nts: SPECIMEN #2'TROP' Serial specimen #1, #2 or #3: 2 Performed By: #### L 501.5200, L501.4020, L501.2300, L100.0100, L501.9985, L500.4050 ####[facility] [address] [place], [address] Glucose [Mass/Vol] 80 mg/dL Normal 74-106 [facility] Comment on above: Order Comment: Comme nts: SPECIMEN #2'TROP' Serial specimen #1, #2 or #3: 2 Performed By: #### L 501.5200, L501.4020, L501.2300, L100.0100, L501.9985, L500.4050 ####[facility] [address] [place], [address] Potassium [Moles/Vol] 3.5 mmol/L Normal 3.5-5.1 [facility] Comment on above: Order Comment: Comme nts: SPECIMEN #2'TROP' Serial specimen #1, #2 or #3: 2 Performed By: #### L 501.5200, L501.4020, L501.2300, L100.0100, L501.9985, L500.4050 ####[facility] [address] [place], [address] Sodium [Moles/Vol] 137 mmol/L Normal 136-145 [facility] Comment on above: Order Comment: Comme nts: SPECIMEN #2'TROP' Serial specimen #1, #2 or #3: 2 Performed By: #### L 501.5200, L501.4020, L501.2300, L100.0100, L501.9985, L500.4050 ####[facility] [address] [place], [address] T PROT 5.7 g/dL Low 6.4-8.2 [facility] Comment on above: Order Comment: Comme nts: SPECIMEN #2'TROP' Serial specimen #1, #2 or #3: 2 Performed By: #### L 501.5200, L501.4020, L501.2300, L100.0100, L501.9985, L500.4050 ####[facility] [address] [place], [address] Urea nitrogen [Mass/Vol] 28 mg/dL High 7- [facility] Comment on above: Order Comment: Comme nts: SPECIMEN #2'TROP' Serial specimen #1, #2 or #3: 2 Performed By: #### L 501.5200, L501.4020, L501.2300, L100.0100, L501.9985, L500.4050 ####[facility] [address] [place], [address] Echo Complete W/ Contraston 06-15-2024 Echo Complete W/ Contrast Normal [facility] Emergency Department Summary on 06-15-2024 Emergency Department Summary Normal [facility] Folates, (Folic Acid)on 05-20 FOLATES 8.00 ng/mL Normal 3.1-55.4 [facility] Comment on above: Order Comment: Has P atient had X-rays with Contrast this admission? N'TROP' Serial specimen #1, #2 or #3: 1Y Performed By: #### L 501.4020, L501.9100, L501.9520, L505.5000, L506.0250, L500.4100, L503.0105 ####[facility] [address] [place], [address] H AND P Exam - Hospitaliston 06-15-2024 H&P Exam - Hospitalist Normal [facility] Hemoglobin A1con 06-15-2024 HbA1c (Bld) [Mass fraction] 6.2 % High 3.8-5.6 [facility] Comment on above: Result Comment: Norm al < 5.7 % Prediabetic 5.7 - 6.4 % Diabetic >or= 6.5 % Please note range changes. Performed By: #### L 501.5200, L501.4020, L501.2300, L100.0100, L501.9985, L500.4050 ####[facility] [address] [place], [address] L501.4020on 06-15-2024 TROPONIN-I HS 33 pg/mL Normal 3.0-78.0 [facility] Comment on above: Order Comment: Comme nts: SPECIMEN #3'TROP' Serial specimen #1, #2 or #3: 3 Result Comment: Plea se Note: New Test Units and Gender Specific Reference Ranges. For more information see Policy Stat Procedure Marlin High Sensitivity Troponin (TNIH) and attachments. Performed By: #### L 501.4020 ####[facility] [address] [place], [address] TROPONIN-I HS 31 pg/mL Normal 3.0-78.0 [facility] Comment on above: Order Comment: Comme nts: SPECIMEN #2'TROP' Serial specimen #1, #2 or #3: 2 Result Comment: Plea se Note: New Test Units and Gender Specific Reference Ranges. For more information see Policy Stat Procedure Marlin High Sensitivity Troponin (TNIH) and attachments. Performed By: #### L 501.5200, L501.4020, L501.2300, L100.0100, L501.9985, L500.4050 ####[facility] [address] [place], [address] TROPONIN-I HS 35 pg/mL Normal 3.0-78.0 [facility] Comment on above: Order Comment: Has P atient had X-rays with Contrast this admission? N'TROP' Serial specimen #1, #2 or #3: 1Y Result Comment: Loly varela Note: New Test Units and Gender Specific Reference Ranges. For more information see Policy Stat Procedure Marlin High Sensitivity Troponin (TNIH) and attachments. Performed By: #### L 501.4020, L501.9100, L501.9520, L505.5000, L506.0250, L500.4100, L503.0105 ####[facility] [address] [place], [address] Lipid Profileon 06-15-2024 Cholesterol [Mass/Vol] 148 mg/dL Normal 200 [facility] Comment on above: Order Comment: Has Manda chavez had X-rays with Contrast this admission? N'TROP' Serial specimen #1, #2 or #3: 1Y Result Comment: <200 mg/dL Desirable 200-240 mg/dL Borderline >240 mg/dL High Risk Performed By: #### L 501.4020, L501.9100, L501.9520, L505.5000, L506.0250, L500.4100, L503.0105 ####[facility] [address] [place], [address] Cholesterol in HDL [Mass/Vol] 46 mg/dL Normal [facility] Comment on above: Order Comment: Has Manda chavez had X-rays with Contrast this admission? N'TROP' Serial specimen #1, #2 or #3: 1Y Result Comment: The drugs N-Acetylcysteine and Metamizole may falselydepress this assay. Reference Range HDL <40 mg/dL Low HDL Cholesterol HDL >or= 60 mg/dL High HDL Cholesterol Performed By: #### L 501.4020, L501.9100, L501.9520, L505.5000, L506.0250, L500.4100, L503.0105 ####[facility] [address] [place], [address] Cholesterol in LDL [Mass/Vol] 64 mg/dL Normal 0-130 [facility] Comment on above: Order Comment: Has Manda chavez had X-rays with Contrast this admission? N'TROP' Serial specimen #1, #2 or #3: 1Y Performed By: #### L 501.4020, L501.9100, L501.9520, L505.5000, L506.0250, L500.4100, L503.0105 ####[facility] [address] [place], [address] Cholesterol in VLDL [Mass/Vol] 38 mg/dL Normal 5-40 [facility] Comment on above: Order Comment: Has Manda chavez had X-rays with Contrast this admission? N'TROP' Serial specimen #1, #2 or #3: 1Y Performed By: #### L 501.4020, L501.9100, L501.9520, L505.5000, L506.0250, L500.4100, L503.0105 ####[facility] [address] [place], [address] Triglyceride [Mass/Vol] 189 mg/dL Normal [facility] Comment on above: Order Comment: Has [...] 501.4020, L501.9100, L501.9520, L505.5000, L506.0250, L500.4100, L503.0105 ####[facility] [address] [place], [address] Magnesiumon 06-15-2024 Magnesium [Mass/Vol] 1.7 mg/dL Normal 1.6-2.6 [facility] Comment on above: Order Comment: Comme nts: SPECIMEN #2'TROP' Serial specimen #1, #2 or #3: 2 Performed By: #### L 501.5200, L501.4020, L501.2300, L100.0100, L501.9985, L500.4050 ####[facility] [address] [place], [address] Partial Thromboplast Timeon 06-15-2024 aPTT Coag (Bld) [Time] 26.1 s Normal 24.1-36.2 [facility] Comment on above: Performed By: #### L 100.0100, L300.4310, L300.3900 ####[facility] [address] [place], [address] Phosphoruson 06-15-2024 Phosphate [Mass/Vol] 4.3 mg/dL Normal 2.5-4.9 [facility] Comment on above: Order Comment: Comme nts: SPECIMEN #2'TROP' Serial specimen #1, #2 or #3: 2 Performed By: #### L 501.5200, L501.4020, L501.2300, L100.0100, L501.9985, L500.4050 ####[facility] [address] [place], [address] Prothrombin Time w/INRon INR Coag (PPP) [Relative time] 1.2 {INR} Normal [facility] Comment on above: Performed By: #### L 100.0100, L300.4310, L300.3900 ####[facility] [address] [place], [address] PT Coag (PPP) [Time] 15.0 s High 11.7-14.9 [facility] Comment on above: Performed By: #### L 100.0100, L300.4310, L300.3900 ####[facility] [address] [place], [address] Thyroid Stim Hormone (TSH)on 06-15-2024 TSH 3.230 uIU/mL Normal 0.358-3.740 [facility] Comment on above: Order Comment: Has P kahty had X-rays with Contrast this admission? N'TROP' Serial specimen #1, #2 or #3: 1Y Performed By: #### L 501.4020, L501.9100, L501.9520, L505.5000, L506.0250, L500.4100, L503.0105 ####[facility] [address] [place], [address] Vitamin B12on 06-15-2024 Cobalamin (Vitamin B12) [Mass/Vol] pg/mL High 211-911 [facility] Comment on above: Performed By: #### L 501.4020, L501.9100, L501.9520, L505.5000, L506.0250, L500.4100, L503.0105 ####[facility] [address] [place], [address] 12 Lead EKGon 06-14-2024 12 Lead EKG Normal [facility] Basic Metabolic Profile (BMP )on 06-14-2024 BUN/CRE 11.6 RATIO Normal 10-20 [facility] Comment on above: Performed By: #### L 500.2500, L501.5200 ####[facility] [address] [place], [address] CA,Total 9.5 mg/dL Normal 8.5-10.1 [facility] Comment on above: Performed By: #### L 500.2500, L501.5200 ####[facility] [address] [place], [address] Chloride [Moles/Vol] 102 mmol/L Normal 98-107 [facility] Comment on above: Performed By: #### L 500.2500, L501.5200 ####[facility] [address] [place], [address] CO2 [Moles/Vol] 21.0 mmol/L Normal 21.0-32.0 [facility] Comment on above: Performed By: #### L 500.2500, L501.5200 ####[facility] [address] [place], [address] Creatinine [Mass/Vol] 2.25 mg/dL High 0.70-1.30 [facility] Comment on above: Result Comment: The validity of the calculated GFR GFRAA in patients over70 years has not been determined. Clinical correlation isessential. Performed By: #### L 500.2500, L501.5200 ####[facility] [address] [place], [address] ECRCL 25.79 ml/min Normal [facility] Comment on above: Performed By: #### L 500.2500, L501.5200 ####[facility] [address] [place], [address] EST GFR - AA 36 mL/min Low >60 [facility] Comment on above: Result Comment: Afri can Malawian GFR Calc Performed By: #### L 500.2500, L501.5200 ####[facility] [address] [place], [address] GAP 14 Normal 5-15 [facility] Comment on above: Performed By: #### L 500.2500, L501.5200 ####[facility] [address] [place], [address] GFR/1.73 sq M.predicted among non-blacks MDRD (S/P/Bld) [Vol rate/Area] 30 mL/min/{1.73_m2} Low >60 [facility] Comment on above: Result Comment: Non- GFR Calc Performed By: #### L 500.2500, L501.5200 ####[facility] [address] [place], [address] Glucose [Mass/Vol] 120 mg/dL High 74-106 [facility] Comment on above: Result Comment: Fast ing Glucose result from 100 to 125 mg/dLsuggests IMPAIRED HOMEOSTASIS per A.D.A. criteria. Performed By: #### L 500.2500, L501.5200 ####[facility] [address] [place], [address] Potassium [Moles/Vol] 3.9 mmol/L Normal 3.5-5.1 [facility] Comment on above: Result Comment: Slig ht Hemolysis, Result may be falsely increased. Performed By: #### L 500.2500, L501.5200 ####[facility] [address] [place], [address] Sodium [Moles/Vol] 136 mmol/L Normal 136-145 [facility] Comment on above: Performed By: #### L 500.2500, L501.5200 ####[facility] [address] [place], [address] Urea nitrogen [Mass/Vol] 26 mg/dL High 7-18 [facility] Comment on above: Performed By: #### L 500.2500, L501.5200 ####[facility] [address] [place], [address] Brain/Head without Contrasto n 06-14-2024 Brain/Head without Contrast Normal [facility] Magnesiumon 06-14-2024 Magnesium [Mass/Vol] 1.8 mg/dL Normal 1.6-2.6 [facility] Comment on above: Result Comment: Slig ht Hemolysis, Result may be falsely increased. Performed By: #### L 500.2500, L501.5200 ####[facility] [address] [place], [address] CNOVon 06-06-2024 CNOV Office Visit (PODIWS ) OLMAN SYED ([id number]) 1935 M Date Time Provider Department 06/06/24 [...] (or decreased sensation in your feet) a jack frame tender should always cut your toenails. Be Careful [...] Go to your health care provider or jack frame tender to treat these conditions. Barbie Nova 07/20/2024 [...] DP and (more content not included)... Normal [facility] MR/BMS.IMBon 05-20-2024 MR/BMS.IMB Normal [facility] CBC W/Diff, Automatedon 11- Absolute Lymph 1.31 X10 3/uL Normal 0.83-4.51 [facility] Comment on above: Performed By: #### L 501.27787, L501.9910, L501.9985, L501.9520, L500.4100, L500.4050, L503.0105, L506.0400, L501.5200, L100.0100 ####[facility] [address] [place], [place], [id number] Absolute Neut 3.7 X10 3/uL Normal 2.0-7.7 [facility] Comment on above: Performed By: #### L 501.72380, L501.9910, L501.9985, L501.9520, L500.4100, L500.4050, L503.0105, L506.0400, L501.5200, L100.0100 ####[facility] [address] [place], [place], [id number] Basophils/100 WBC (Bld) 0.9 % Normal 0-1 [facility] Comment on above: Performed By: #### L 501.66576, L501.9910, L501.9985, L501.9520, L500.4100, L500.4050, L503.0105, L506.0400, L501.5200, L100.0100 ####[facility] [address] [place], [place], [phone]) Eosinophils/100 WBC (Bld) 8.9 % High 0-5 [facility] Comment on above: Performed By: #### L 501.29171, L501.9910, L501.9985, L501.9520, L500.4100, L500.4050, L503.0105, L506.0400, L501.5200, L100.0100 ####[facility] [address] [place], [address](324) Erythrocyte distribution width (RBC) [Ratio] 19.1 % High 11.6-14.6 [facility] Comment on above: Performed By: #### L 501.06728, L501.9910, L501.9985, L501.9520, L500.4100, L500.4050, L503.0105, L506.0400, L501.5200, L100.0100 ####[facility] [address] [facility] [place], [place], [phone](415) Hematocrit (Bld) [Volume fraction] 32.2 % Low 40-54 [facility] Comment on above: Performed By: #### L 501.57165, L501.9910, L501.9985, L501.9520, L500.4100, L500.4050, L503.0105, L506.0400, L501.5200, L100.0100 ####[facility] [address] [facility], [address]557) Hemoglobin (Bld) [Mass/Vol] 9.9 g/dL Low 13.0-16.5 [facility] Comment on above: Performed By: #### L 501.05924, L501.9910, L501.9985, L501.9520, L500.4100, L500.4050, L503.0105, L506.0400, L501.5200, L100.0100 ####[facility] [address] [place], [address] IG% 0.800 Normal 0.0-0.9 [facility] Comment on above: Result Comment: IG% - Immature Granulocytes (promyelocytes, myelocytes andmetamyelocytes) > 1% indicates that a LEFT SHIFT is Present. Performed By: #### L 501.17638, L501.9910, L501.9985, L501.9520, L500.4100, L500.4050, L503.0105, L506.0400, L501.5200, L100.0100 ####[facility] [address] [place], [address] Lymphocytes/100 WBC (Bld) 20.4 % Normal 19-41 [facility] Comment on above: Performed By: #### L 501.92686, L501.9910, L501.9985, L501.9520, L500.4100, L500.4050, L503.0105, L506.0400, L501.5200, L100.0100 ####[facility] [address] [place], [address] MCH (RBC) [Entitic mass] 24.3 pg Low 27.0-32.0 [facility] Comment on above: Performed By: #### L 501.73715, L501.9910, L501.9985, L501.9520, L500.4100, L500.4050, L503.0105, L506.0400, L501.5200, L100.0100 ####[facility] [address] [place], [address] MCHC (RBC) [Mass/Vol] 30.7 g/dL Low 32-36 [facility] Comment on above: Performed By: #### L 501.79842, L501.9910, L501.9985, L501.9520, L500.4100, L500.4050, L503.0105, L506.0400, L501.5200, L100.0100 ####[facility] [address] [place], [address] MCV (RBC) [Entitic vol] 79.1 fL Low 80-94 [facility] Comment on above: Performed By: #### L 501.17252, L501.9910, L501.9985, L501.9520, L500.4100, L500.4050, L503.0105, L506.0400, L501.5200, L100.0100 ####[facility] [address] [place], [address] Monocytes/100 WBC (Bld) 11.5 % High 0-10 [facility] Comment on above: Performed By: #### L 501.24705, L501.9910, L501.9985, L501.9520, L500.4100, L500.4050, L503.0105, L506.0400, L501.5200, L100.0100 ####[facility] [address] [place], [address] Neutrophils/100 WBC (Bld) 57.5 % Normal 47-70 [facility] Comment on above: Performed By: #### L 501.92027, L501.9910, L501.9985, L501.9520, L500.4100, L500.4050, L503.0105, L506.0400, L501.5200, L100.0100 ####[facility] [address] [place], [address] Nucleated RBC (Bld) [#/Vol] 0 10*3/uL Normal 0-5 [facility] Comment on above: Performed By: #### L 501.84364, L501.9910, L501.9985, L501.9520, L500.4100, L500.4050, L503.0105, L506.0400, L501.5200, L100.0100 ####[facility] [address] [place], [address] Platelet mean volume (Bld) [Entitic vol] 8.9 fL Normal 6.2-12.0 [facility] Comment on above: Performed By: #### L 501.50577, L501.9910, L501.9985, L501.9520, L500.4100, L500.4050, L503.0105, L506.0400, L501.5200, L100.0100 ####[facility] [address] [place], [address](421) Platelets (Bld) [#/Vol] 281 10*3/uL Normal 150-450 [facility] Comment on above: Performed By: #### L 501.66014, L501.9910, L501.9985, L501.9520, L500.4100, L500.4050, L503.0105, L506.0400, L501.5200, L100.0100 ####[facility] [address] [place], [address] RBC (Bld) [#/Vol] 4.07 10*6/uL Low 4.6-6.2 [facility] Comment on above: Performed By: #### L 501.97880, L501.9910, L501.9985, L501.9520, L500.4100, L500.4050, L503.0105, L506.0400, L501.5200, L100.0100 ####[facility] [address] [place], [address] RDW SD 54.7 fl High 35.1-43.9 [facility] Comment on above: Performed By: #### L 501.78225, L501.9910, L501.9985, L501.9520, L500.4100, L500.4050, L503.0105, L506.0400, L501.5200, L100.0100 ####[facility] [address] [place], [place], [phone] WBC (Bld) [#/Vol] 6.4 10*3/uL Normal 4.4-11.0 [facility] Comment on above: Performed By: #### L 501.71961, L501.9910, L501.9985, L501.9520, L500.4100, L500.4050, L503.0105, L506.0400, L501.5200, L100.0100 ####[facility] [address] [place], [place], [phone] Comprehensive Metabolic [facility] 05-09-2024 Albumin [Mass/Vol] 3.8 g/dL Normal 3.2-5.0 [facility] Comment on above: Performed By: #### L 501.95154, L501.9910, L501.9985, L501.9520, L500.4100, L500.4050, L503.0105, L506.0400, L501.5200, L100.0100 ####[facility] [address] [place], [place], [phone] Albumin/Globulin [Mass ratio] 1.2 {ratio} Normal 0.9-2.4 [facility] Comment on above: Performed By: #### L 501.03317, L501.9910, L501.9985, L501.9520, L500.4100, L500.4050, L503.0105, L506.0400, L501.5200, L100.0100 ####[facility] [address] [place], [place], [phone] ALK P 46 U/L Normal 45-117 [facility] Comment on above: Performed By: #### L 501.25632, L501.9910, L501.9985, L501.9520, L500.4100, L500.4050, L503.0105, L506.0400, L501.5200, L100.0100 ####[facility] [address] [place], [place], [id number] ALT [Catalytic activity/Vol] 10 U/L Low 16-61 [facility] Comment on above: Performed By: #### L 501.15776, L501.9910, L501.9985, L501.9520, L500.4100, L500.4050, L503.0105, L506.0400, L501.5200, L100.0100 ####[facility] [address] [place], [address] AST [Catalytic activity/Vol] 6 U/L Low 15-37 [facility] Comment on above: Performed By: #### L 501.05117, L501.9910, L501.9985, L501.9520, L500.4100, L500.4050, L503.0105, L506.0400, L501.5200, L100.0100 ####[facility] [address] [place], [place], [phone] Bilirubin [Mass/Vol] 0.70 mg/dL Normal 0.20-1.00 [facility] Comment on above: Result Comment: For patients on eltrombopag therapy, use of Dimension Marlin TBIL is not recommended. Performed By: #### L 501.90373, L501.9910, L501.9985, L501.9520, L500.4100, L500.4050, L503.0105, L506.0400, L501.5200, L100.0100 ####[facility] [address] [place], [address] BUN/CRE 11.9 RATIO Normal 10-20 [facility] Comment on above: Performed By: #### L 501.16135, L501.9910, L501.9985, L501.9520, L500.4100, L500.4050, L503.0105, L506.0400, L501.5200, L100.0100 ####[facility] [address] [place], [place], [phone] CA,Total 9.7 mg/dL Normal 8.5-10.1 [facility] Comment on above: Performed By: #### L 501.37345, L501.9910, L501.9985, L501.9520, L500.4100, L500.4050, L503.0105, L506.0400, L501.5200, L100.0100 ####[facility] [address] [place], [place], [phone] Chloride [Moles/Vol] 105 mmol/L Normal 98-107 [facility] Comment on above: Performed By: #### L 501.34189, L501.9910, L501.9985, L501.9520, L500.4100, L500.4050, L503.0105, L506.0400, L501.5200, L100.0100 ####[facility] [address] [place], [place], [phone] CO2 [Moles/Vol] 25.0 mmol/L Normal 21.0-32.0 [facility] Comment on above: Performed By: #### L 501.19906, L501.9910, L501.9985, L501.9520, L500.4100, L500.4050, L503.0105, L506.0400, L501.5200, L100.0100 ####[facility] [address] [place], [place], [phone] Creatinine [Mass/Vol] 1.68 mg/dL High 0.70-1.30 [facility] Comment on above: Result Comment: The validity of the calculated GFR GFRAA in patients over70 years has not been determined. Clinical correlation isessential. Performed By: #### L 501.79997, L501.9910, L501.9985, L501.9520, L500.4100, L500.4050, L503.0105, L506.0400, L501.5200, L100.0100 ####[facility] [address] [place], [place], [phone] EST GFR - AA 50 mL/min Low >60 [facility] Comment on above: Result Comment: Afri can Malawian GFR Calc Performed By: #### L 501.36210, L501.9910, L501.9985, L501.9520, L500.4100, L500.4050, L503.0105, L506.0400, L501.5200, L100.0100 ####[facility] [address] [place], [place], [phone] GAP 11 Normal 5-15 [facility] Comment on above: Performed By: #### L 501.38315, L501.9910, L501.9985, L501.9520, L500.4100, L500.4050, L503.0105, L506.0400, L501.5200, L100.0100 ####[facility] [address] [place], [place], [phone] GFR/1.73 sq M.predicted among non-blacks MDRD (S/P/Bld) [Vol rate/Area] 41 mL/min/{1.73_m2} Low >60 [facility] Comment on above: Result Comment: Non- GFR Calc Performed By: #### L 501.81373, L501.9910, L501.9985, L501.9520, L500.4100, L500.4050, L503.0105, L506.0400, L501.5200, L100.0100 ####[facility] [address] [place], [place], [phone] Globulin (S) [Mass/Vol] 3.2 g/dL Normal 2.2-4.2 [facility] Comment on above: Performed By: #### L 501.13323, L501.9910, L501.9985, L501.9520, L500.4100, L500.4050, L503.0105, L506.0400, L501.5200, L100.0100 ####[facility] [address] [place], [place], [phone] Glucose [Mass/Vol] 94 mg/dL Normal 74-106 [facility] Comment on above: Performed By: #### L 501.22029, L501.9910, L501.9985, L501.9520, L500.4100, L500.4050, L503.0105, L506.0400, L501.5200, L100.0100 ####[facility] [address] [place], [place], [phone] Potassium [Moles/Vol] 3.4 mmol/L Low 3.5-5.1 [facility] Comment on above: Performed By: #### L 501.47559, L501.9910, L501.9985, L501.9520, L500.4100, L500.4050, L503.0105, L506.0400, L501.5200, L100.0100 ####[facility] [address] [place], [place], [phone] Sodium [Moles/Vol] 141 mmol/L Normal 136-145 [facility] Comment on above: Performed By: #### L 501.95010, L501.9910, L501.9985, L501.9520, L500.4100, L500.4050, L503.0105, L506.0400, L501.5200, L100.0100 ####[facility] [address] [place], [place], [phone] T PROT 7.0 g/dL Normal 6.4-8.2 [facility] Comment on above: Performed By: #### L 501.38028, L501.9910, L501.9985, L501.9520, L500.4100, L500.4050, L503.0105, L506.0400, L501.5200, L100.0100 ####[facility] [address] [place], [place], [phone] Urea nitrogen [Mass/Vol] 20 mg/dL High 01-03 [facility] Comment on above: Performed By: #### L 501.55529, L501.9910, L501.9985, L501.9520, L500.4100, L500.4050, L503.0105, L506.0400, L501.5200, L100.0100 ####[facility] [address] [place], [place], [phone] Free T3on 05-09-2024 Free T3 [Mass/Vol] 2.5 pg/mL Normal 2.18-3.98 [facility] Comment on above: Performed By: #### L 501.63348, L501.9910, L501.9985, L501.9520, L500.4100, L500.4050, L503.0105, L506.0400, L501.5200, L100.0100 ####[facility] [address] [place], [place], [phone] Hemoglobin A1con 05-09-2024 HbA1c (Bld) [Mass fraction] 6.6 % High 3.8-5.6 [facility] Comment on above: Result Comment: Norm al < 5.7 % Prediabetic 5.7 - 6.4 % Diabetic >or= 6.5 % Please note range changes. Performed By: #### L 501.89323, L501.9910, L501.9985, L501.9520, L500.4100, L500.4050, L503.0105, L506.0400, L501.5200, L100.0100 ####[facility] [address] [place], [address] Iron+Iron Binding Capacityon 05-09-2024 Iron [Mass/Vol] 28 ug/dL Low 65-175 [facility] Comment on above: Performed By: #### L 503.6030 ####[facility] [address] [place], [address] IRON SATURATION 6.2 Low 15.0-55.0 [facility] Comment on above: Performed By: #### L 503.6030 ####[facility] [address] [place], [address] TIBC 454 ug/dL High 250-450 [facility] Comment on above: Performed By: #### L 503.6030 ####[facility] [address] [place], [address] Lipid Profileon 05-09-2024 Cholesterol [Mass/Vol] 143 mg/dL Normal 200 [facility] Comment on above: Result Comment: <200 mg/dL Desirable 200-240 mg/dL Borderline >240 mg/dL High Risk Performed By: #### L 501.22303, L501.9910, L501.9985, L501.9520, L500.4100, L500.4050, L503.0105, L506.0400, L501.5200, L100.0100 ####[facility] [address] [place], [address] Cholesterol in HDL [Mass/Vol] 46 mg/dL Normal [facility] Comment on above: Result Comment: The drugs N-Acetylcysteine and Metamizole may falselydepress this assay. Reference Range HDL <40 mg/dL Low HDL Cholesterol HDL >or= 60 mg/dL High HDL Cholesterol Performed By: #### L 501.63244, L501.9910, L501.9985, L501.9520, L500.4100, L500.4050, L503.0105, L506.0400, L501.5200, L100.0100 ####[facility] [address] [place], [place], [phone]) Cholesterol in LDL [Mass/Vol] 68 mg/dL Normal 0-130 [facility] Comment on above: Performed By: #### L 501.00578, L501.9910, L501.9985, L501.9520, L500.4100, L500.4050, L503.0105, L506.0400, L501.5200, L100.0100 ####[facility] [address] [facility] [place], [place], [phone] Cholesterol in VLDL [Mass/Vol] 29 mg/dL Normal 5-40 [facility] Comment on above: Performed By: #### L 501.78898, L501.9910, L501.9985, L501.9520, L500.4100, L500.4050, L503.0105, L506.0400, L501.5200, L100.0100 ####[facility] [address] [facility] [place], [place], [phone]) Triglyceride [Mass/Vol] 144 mg/dL Normal [facility] Comment on above: Result Comment: The drugs N-Acetylcysteine and Metamizole may falselydepress this assay.Serum Triglycerides Reference Interval Normal <150 mg/dL Borderline high 150 - 199 mg/dL High 200 - 499 mg/dL Very High > or = 500 mg/dL Performed By: #### L 501.80077, L501.9910, L501.9985, L501.9520, L500.4100, L500.4050, L503.0105, L506.0400, L501.5200, L100.0100 ####[facility] [address] [place], [place], [phone] Magnesiumon 05-09-2024 Magnesium [Mass/Vol] 1.8 mg/dL Normal 1.6-2.6 [facility] Comment on above: Performed By: #### L 501.05693, L501.9910, L501.9985, L501.9520, L500.4100, L500.4050, L503.0105, L506.0400, L501.5200, L100.0100 ####[facility] [address] [place], [address] PSA,Total - Annual Screenon 05-09-2024 PSA,TOT SCREEN 1.04 ng/mL Normal 0.00-4.00 [facility] Comment on above: Result Comment: This test was performed using the TPSA assay method for theMilabra chemistry system. Values obtained with differentassay methods cannot be used interchangably.When changing PSA assays in the course of monitoring apatient, additional sequential testing should be carriedout to confirm baseline values. Performed By: #### L 501.02432, L501.9910, L501.9985, L501.9520, L500.4100, L500.4050, L503.0105, L506.0400, L501.5200, L100.0100 ####[facility] [address] [place], [place], [phone] T4 Free Directon 05-09-2024 T4 FREE DIRECT 0.91 ng/dL Normal 0.76-1.46 [facility] Comment on above: Performed By: #### L 501.37036, L501.9910, L501.9985, L501.9520, L500.4100, L500.4050, L503.0105, L506.0400, L501.5200, L100.0100 ####[facility] [address] [place], [address] Thyroid Stim Hormone (TSH)on 05-09-2024 TSH 2.880 uIU/mL Normal 0.358-3.740 [facility] Comment on above: Performed By: #### L 501.98029, L501.9910, L501.9985, L501.9520, L500.4100, L500.4050, L503.0105, L506.0400, L501.5200, L100.0100 ####[facility] [address] [place], [place], [address] Vitamin B12on 05-09-2024 Cobalamin (Vitamin B12) [Mass/Vol] pg/mL High 211-911 [facility] Comment on above: Performed By: #### L 501.50808, L501.9910, L501.9985, L501.9520, L500.4100, L500.4050, L503.0105, L506.0400, L501.5200, L100.0100 ####[facility] [address] [place], [place], [phone] Office Visit Reporton 2023 Office Visit Report Normal [facility] Neurology Visit Reporton Neurology Visit Report Normal [facility] Pulmonary Visit Reporton Pulmonary Visit Report Normal [facility] Cardiology Visit Reporton Cardiology Visit Report Normal [facility] MR/BMS.IMBon 03-07-2024 MR/BMS.IMB Normal [facility] CNOVon 02-29-2024 CNOV Office Visit (PODIWS ) OLMAN SYED ([id number]) 1935 M Date Time Provider Department 02/29/24 [...] Objective: Patient presents to clinic ambulating in [facility] Vasc: DP and PT pulses are palpable [...] Barbie Nova DPM Referring Provider: BARBIE NOVA [[id number]] Allergies As of Date: 02/29/2024 Noted Allergy [...] Inhale 2 (more content not included)... Normal [facility] Re-Evaluation - PT (1)on Re-Evaluation - PT (1) Normal [facility] Inital Evaluation (1) - PTon 01-19-2024 Inital Evaluation (1) - PT Normal [facility] Office Visit Reporton 2023 Office Visit Report Normal [facility] L/S Spine Comp/w Bending Vie wson 01-10-2024 L/S Spine Comp/w Bending Views Normal [facility] Absolute lymphocyte countOrd ered By: Keron Maciel on 09-22-2023 Lymphocytes Auto (Unsp spec) [#/Vol] 1.66 10*3/uL 0.83-4.51 [facility] Automated lymphocyte count a s percentage of total leukocytesOrdered By: Keron Maciel on 09-22-2023 Lymphocytes/100 WBC Auto (Unsp spec) 20.4 % 19-41 [facility] Basophil percentageOrdered B y: Keron Maciel on 09-22-2023 Basophils/100 WBC (Bld) 0.4 % 0-1 [facility] Bilirubin [Mass/Vol] 0.70 mg/dL 0.20-1.00 [facility] Comment on above: For patients on eltr ombopag therapy, use of Dimension [place] TBIL is not recommended. Chloride [Moles/Vol] 100 mmol/L 98-107 [facility] Cholesterol [Mass/Vol] 154 mg/dL <200 [facility] Comment on above: <200 mg/dL Desirable 200-240 mg/dL Borderline >240 mg/dL High Risk Eosinophils/100 WBC (Bld) 1.0 % 0-5 [facility] Glucose [Mass/Vol] 126 mg/dL 74-106 [facility] Comment on above: Fasting Glucose resu lt greater than or equal to 126 mg/dL suggests DIABETES MELLITUS per A.D.A. criteria. Hemoglobin (Bld) [Mass/Vol] 13.3 g/dL 13.0-16.5 [facility] Monocytes/100 WBC (Bld) 8.7 % 0-10 [facility] Neutrophils (Bld) [#/Vol] 5.5 10*3/uL 2.0-7.7 [facility] Neutrophils/100 WBC (Bld) 67.8 % 47-70 [facility] Potassium [Moles/Vol] 4.5 mmol/L 3.5-5.1 [facility] Protein [Mass/Vol] 7.2 g/dL 6.4-8.2 [facility] Sodium [Moles/Vol] 136 mmol/L 136-145 [facility] Triglyceride [Mass/Vol] 145 mg/dL <199 [facility] Comment on above: The drugs N-Acetylcy steine and Metamizole may falsely depress this assay.Serum Triglycerides Reference Interval Normal <150 mg/dL Borderline high 150 - 199 mg/dL High 200 - 499 mg/dL Very High > or = 500 mg/dL WBC (Bld) [#/Vol] 8.1 10*3/uL 4.4-11.0 [facility] Determination of erythrocyte mean corpuscular volume (MCV)Ordered By: Keron Maciel on 09-22-2023 MCV (RBC) [Entitic vol] 89.0 fL 80-94 [facility] Erythrocyte distribution wid th ratioOrdered By: Keron Maciel on 09-22-2023 Erythrocyte distribution width (RBC) [Ratio] 16.9 % 11.6-14.6 [facility] Erythrocyte distribution wid th standard deviationOrdered By: Keron Maciel on 09-22-2023 Erythrocyte distribution width (RBC) [Entitic vol] 54.4 fL 35.1-43.9 [facility] Hematocrit Auto (Bld) [Volum e fraction]Ordered By: Keron Maciel on 09-22-2023 Hematocrit (Bld) [Volume fraction] 41.1 % 40-54 [facility] Immature granulocytes/100 WB C Auto (Bld)Ordered By: Keron Maciel on 09-22-2023 Immature granulocytes/100 WBC (Bld) 1.700 % 0.0-0.9 [facility] Comment on above: IG% - Immature Granu locytes (promyelocytes, myelocytes and metamyelocytes) > 1% indicates that a LEFT SHIFT is Present. Laboratory - Chemistry and C hemistry - challengeOrdered By: Keron Maciel on 09-22-2023 Albumin/Globulin [Mass ratio] 1.1 {ratio} 0.9-2.4 [facility] ALP [Catalytic activity/Vol] 32 U/L 45-117 [facility] ALT [Catalytic activity/Vol] 8 U/L 16-61 [facility] Cholesterol in HDL [Mass/Vol] 50 mg/dL >40 [facility] Comment on above: The drugs N-Acetylcy steine and Metamizole may falsely depress this assay. Reference Range HDL <40 mg/dL Low HDL Cholesterol HDL >or= 60 mg/dL High HDL Cholesterol Cholesterol in LDL [Mass/Vol] 75 mg/dL 0-130 [facility] CO2 [Moles/Vol] 29.0 mmol/L 21.0-32.0 [facility] Globulin (S) [Mass/Vol] 3.5 g/dL 2.2-4.2 [facility] Urea nitrogen/Creatinine [Mass ratio] 15.0 mg/mg 10-20 [facility] Laboratory - Hematology and Cell countsOrdered By: Keron Maciel on 09-22-2023 MCH (RBC) [Entitic mass] 28.8 pg 27.0-32.0 [facility] MCHC (RBC) [Mass/Vol] 32.4 g/dL 32-36 [facility] Nucleated RBC/100 WBC (Bld) [Ratio] 0 % 0-5 [facility] Platelet mean volume (Bld) [Entitic vol] 9.0 fL 6.2-12.0 [facility] Platelets (Bld) [#/Vol] 255 10*3/uL 150-450 [facility] No Panel InformationOrdered By: Keron Maciel on 09-22-2023 Estimated GFR (MDRD) Amer 44 mL/min >60 [facility] Comment on above: GFR Calc Estimated GFR (MDRD) Non-Af Amer 37 mL/min >60 [facility] Comment on above: Non- GFR Calc Vitamin D 25-Hydroxy 81.7 ng/mL [facility] Comment on above: Vitamin D 25(OH) Sta tus Range Deficiency <20 ng/mL (50nmol/L) Insufficiency 20 - 30 ng/mL (50 - 75 nmol/L) Sufficiency 30 - 100 ng/mL (75 - 250 nmol/L) Toxicity >100 ng/mL (>250 nmol/L) VLDL Cholesterol 29 mg/dL 5-40 [facility] RBC Auto (Bld) [#/Vol]Ordere d By: Keron Maciel on 09-22-2023 RBC (Bld) [#/Vol] 4.62 10*6/uL 4.6-6.2 [facility] Serum or plasma calcium odilon urement (mass/volume)Ordered By: Keron Maciel on 09-22-2023 Calcium [Mass/Vol] 10.0 mg/dL 8.5-10.1 [facility] Serum or plasma creatinine m easurement (mass/volume)Ordered By: Keron Maciel on 09-22-2023 Creatinine [Mass/Vol] 1.87 mg/dL 0.70-1.30 [facility] Comment on above: The validity of the calculated GFR & GFRAA in patients over 70 years has not been determined. Clinical correlation is essential. Serum or plasma thyroid stim ulating hormone (TSH) measurement (units/volume)Ordered By: Keron Maceil on 09-22-2023 TSH Qn 2.98 uIU/mL 0.358-3.74 [facility] Serum or plasma urea nitroge n measurement (mass/volume)Ordered By: Keron Maciel on 09-22-2023 Urea nitrogen [Mass/Vol] 28 mg/dL 7-18 [facility] Thin prep Papanicolaou smear with manual screeningOrdered By: Keron Maciel on 09-22-2023 Thin prep Papanicolaou smear with manual screening 3.7 g/dL 3.2-5.0 [facility] Thin prep Papanicolaou smear with manual screening 10 U/L 15-37 [facility] Thin prep Papanicolaou smear with manual screening 7 5-15 [facility] Whole blood hemoglobin A1c/t otal hemoglobin ratio (mass fraction)Ordered By: Keronrichard Maciel on 09-22-2023 HbA1c (Bld) [Mass fraction] 6.4 % 3.8-5.6 [facility] Comment on above: Normal < 5.7 % Predi abetic 5.7 - 6.4 % Diabetic >or= 6.5 % Please note range changes. No Panel Informationon 08-10 Influenza Types A,B Rapid (Clinic) Negative [facility] POC SARS CoV-2 Antigen Negative [facility] Absolute lymphocyte countOrd ered By: Junior Duenas on 07-16-2023 Lymphocytes Auto (Unsp spec) [#/Vol] 1.30 10*3/uL 0.83-4.51 [facility] Automated lymphocyte count a s percentage of total leukocytesOrdered By: Junior Duenas on 07-16-2023 Lymphocytes/100 WBC Auto (Unsp spec) 18.3 % 19-41 [facility] Basophil percentageOrdered B y: Junior Duenas on 07-16-2023 Basophils/100 WBC (Bld) 0.8 % 0-1 [facility] Chloride [Moles/Vol] 105 mmol/L 98-107 [facility] Eosinophils/100 WBC (Bld) 3.2 % 0-5 [facility] Glucose [Mass/Vol] 107 mg/dL 74-106 [facility] Comment on above: Fasting Glucose resu lt from 100 to 125 mg/dL suggests IMPAIRED HOMEOSTASIS per A.D.A. criteria. Hemoglobin (Bld) [Mass/Vol] 12.4 g/dL 13.0-16.5 [facility] Monocytes/100 WBC (Bld) 9.9 % 0-10 [facility] Neutrophils (Bld) [#/Vol] 4.8 10*3/uL 2.0-7.7 [facility] Neutrophils/100 WBC (Bld) 67.2 % 47-70 [facility] Potassium [Moles/Vol] 4.6 mmol/L 3.5-5.1 [facility] Sodium [Moles/Vol] 138 mmol/L 136-145 [facility] WBC (Bld) [#/Vol] 7.1 10*3/uL 4.4-11.0 [facility] Determination of erythrocyte mean corpuscular volume (MCV)Ordered By: Junior Duenas on 07-16-2023 MCV (RBC) [Entitic vol] 90.0 fL 80-94 [facility] Erythrocyte distribution wid th ratioOrdered By: Junior Duenas on 07-16-2023 Erythrocyte distribution width (RBC) [Ratio] 15.5 % 11.6-14.6 [facility] Erythrocyte distribution wid th standard deviationOrdered By: Junior Duenas on 07-16-2023 Erythrocyte distribution width (RBC) [Entitic vol] 51.0 fL 35.1-43.9 [facility] Hematocrit Auto (Bld) [Volum e fraction]Ordered By: Junior Duenas on 07-16-2023 Hematocrit (Bld) [Volume fraction] 38.9 % 40-54 [facility] Immature granulocytes/100 WB C Auto (Bld)Ordered By: Junior Duenas on 07-16-2023 Immature granulocytes/100 WBC (Bld) 0.600 % 0.0-0.9 [facility] Comment on above: IG% - Immature Granu locytes (promyelocytes, myelocytes and metamyelocytes) > 1% indicates that a LEFT SHIFT is Present. Laboratory - Chemistry and C hemistry - challengeOrdered By: Junior Duenas on 07-16-2023 CO2 [Moles/Vol] 23.0 mmol/L 21.0-32.0 [facility] Natriuretic peptide B (Bld) [Mass/Vol] 76.2 pg/mL 0-100 [facility] Urea nitrogen/Creatinine [Mass ratio] 15.5 mg/mg 10-20 [facility] Laboratory - Hematology and Cell countsOrdered By: Junior Duenas on 07-16-2023 MCH (RBC) [Entitic mass] 28.7 pg 27.0-32.0 [facility] MCHC (RBC) [Mass/Vol] 31.9 g/dL 32-36 [facility] Nucleated RBC/100 WBC (Bld) [Ratio] 0 % 0-5 [facility] Platelets (Bld) [#/Vol] 269 10*3/uL 150-450 [facility] Laboratory - Microbiology an d Antimicrobial susceptibilityOrdered By: Junior Duenas on 07-16-2023 SARS-CoV-2 (COVID-19) RNA VÍCTOR+probe Ql (Unsp spec) [facility] No Panel InformationOrdered By: Junior Duenas on 07-16-2023 Troponin I High Sensitivity 18 pg/mL 3.0-78.0 [facility] Comment on above: Please Note: New Citlali t Units and Gender Specific Reference Ranges. For more information see Policy Stat Procedure [place] High Sensitivity Troponin (TNIH) and attachments. D-Dimer Quantitative (PE/DVT) 0.61 FEU/ug/m 0.27-0.49 [facility] Comment on above: D-Dimer ELEVATED (>0 .49): Additional studies and clinicalassessments are indicated to conclude diagnosis of:Deep Vein Thrombosis (DVT) or Pulmonary Embolism (PE)CRITICAL VALUE VERIFIED. CALLED TO JUNIOR DUENAS NP07/16/23 2760 Eliezer Moncada.RESULTS READ BACK BY SAME . Estimated Creatinine Clearance Calc 29.81 ml/min [facility] Estimated GFR (MDRD) Amer 41 mL/min >60 [facility] Comment on above: GFR Calc Estimated GFR (MDRD) Non-Af Amer 34 mL/min >60 [facility] Comment on above: Non- GFR Calc Platelet mean volume Torey-Ec ker (Bld) [Entitic vol]Ordered By: Junior Duenas on 07-16-2023 Platelet mean volume (Bld) [Entitic vol] 9.1 fL 6.2-12.0 [facility] RBC Auto (Bld) [#/Vol]Ordere d By: Junior Duenas on 07-16-2023 RBC (Bld) [#/Vol] 4.32 10*6/uL 4.6-6.2 [facility] Serum or plasma calcium odilon urement (mass/volume)Ordered By: Junior Duenas on 07-16-2023 Calcium [Mass/Vol] 10.0 mg/dL 8.5-10.1 [facility] Serum or plasma creatinine m easurement (mass/volume)Ordered By: Junior Duenas on 07-16-2023 Creatinine [Mass/Vol] 2.00 mg/dL 0.70-1.30 [facility] Comment on above: The validity of the calculated GFR & GFRAA in patients over 70 years has not been determined. Clinical correlation is essential. Serum or plasma urea nitroge n measurement (mass/volume)Ordered By: Junior Duenas on 07-16-2023 Urea nitrogen [Mass/Vol] 31 mg/dL 7-18 [facility] Thin prep Papanicolaou smear with manual screeningOrdered By: Junior Duenas on 07-16-2023 Thin prep Papanicolaou smear with manual screening 10 5-15 [facility] Absolute lymphocyte countOrd ered By: Dr. Maciel on 09-28-2022 Lymphocytes Auto (Unsp spec) [#/Vol] 1.75 10*3/uL 0.83-4.51 [facility] Basophil percentageOrdered B y: Dr. Maciel on 09-28-2022 Basophils/100 WBC (Bld) 0.7 % 0-1 [facility] Bilirubin [Mass/Vol] 0.60 mg/dL 0.20-1.00 [facility] Comment on above: For patients on eltr ombopag therapy, use of Dimension [place] TBIL is not recommended. Chloride [Moles/Vol] 103 mmol/L 98-107 [facility] Cholesterol [Mass/Vol] 152 mg/dL <200 [facility] Comment on above: <200 mg/dL Desirable 200-240 mg/dL Borderline >240 mg/dL High Risk Eosinophils/100 WBC (Bld) 3.8 % 0-5 [facility] Glucose [Mass/Vol] 61 mg/dL 74-106 [facility] Neutrophils (Bld) [#/Vol] 4.0 10*3/uL 2.0-7.7 [facility] Neutrophils/100 WBC (Bld) 58.5 % 47-70 [facility] Potassium [Moles/Vol] 4.2 mmol/L 3.5-5.1 [facility] Protein [Mass/Vol] 6.9 g/dL 6.4-8.2 [facility] Sodium [Moles/Vol] 137 mmol/L 136-145 [facility] Triglyceride [Mass/Vol] 150 mg/dL <199 [facility] Comment on above: The drugs N-Acetylcy steine and Metamizole may falsely depress this assay.Serum Triglycerides Reference Interval Normal <150 mg/dL Borderline high 150 - 199 mg/dL High 200 - 499 mg/dL Very High > or = 500 mg/dL WBC (Bld) [#/Vol] 6.8 10*3/uL 4.4-11.0 [facility] Blood erythrocytes count (nu mber/volume)Ordered By: Dr. Maciel on 09-28-2022 RBC (Bld) [#/Vol] 4.33 10*6/uL 4.6-6.2 [facility] Blood hemoglobin measurement (mass/volume)Ordered By: Dr. Maciel on 09-28-2022 Hemoglobin (Bld) [Mass/Vol] 12.9 g/dL 13.0-16.5 [facility] Blood lymphocytes/100 leukoc ytesOrdered By: Dr. Maciel on 09-28-2022 Lymphocytes/100 WBC (Bld) 25.8 % 19-41 [facility] Blood monocytes/100 leukocyt esOrdered By: Dr. Maciel on 09-28-2022 Monocytes/100 WBC (Bld) 10.6 % 0-10 [facility] Blood platelet mean volumeOr dered By: Dr. Maciel on 09-28-2022 Platelet mean volume (Bld) [Entitic vol] 9.2 fL 6.2-12.0 [facility] Determination of erythrocyte mean corpuscular volume (MCV)Ordered By: Dr. Maciel on 09-28-2022 MCV (RBC) [Entitic vol] 94.7 fL 80-94 [facility] Hematocrit Auto (Bld) [Volum e fraction]Ordered By: Dr. Maciel on 09-28-2022 Hematocrit (Bld) [Volume fraction] 41.0 % 40-54 [facility] - Chemistry and C hemistry - challengeOrdered By: Dr. Maciel on 09-28-2022 ALP [Catalytic activity/Vol] 28 U/L 45-117 [facility] ALT [Catalytic activity/Vol] 10 U/L 16-61 [facility] CO2 [Moles/Vol] 29.0 mmol/L 21.0-32.0 [facility] Free T4 [Mass/Vol] 0.94 ng/dL 0.76-1.46 [facility] Globulin (S) [Mass/Vol] 3.2 g/dL 2.2-4.2 [facility] Magnesium [Mass/Vol] 2.0 mg/dL 1.6-2.6 [facility] Urea nitrogen/Creatinine [Mass ratio] 14.7 mg/mg 10-20 [facility] - Hematology and Cell countsOrdered By: Dr. Maciel on 09-28-2022 Erythrocyte distribution width (RBC) [Entitic vol] 55.9 fL 35.1-43.9 [facility] Erythrocyte distribution width (RBC) [Ratio] 15.9 % 11.6-14.6 [facility] Immature granulocytes/100 WBC (Bld) 0.600 % 0.0-0.9 [facility] Comment on above: IG% - Immature Granu locytes (promyelocytes, myelocytes and metamyelocytes) > 1% indicates that a LEFT SHIFT is Present. MCH (RBC) [Entitic mass] 29.8 pg 27.0-32.0 [facility] Nucleated RBC/100 WBC (Bld) [Ratio] 0 % 0-5 [facility] MCHC Auto (RBC) [Mass/Vol]Or dered By: Dr. Maciel on 09-28-2022 MCHC (RBC) [Mass/Vol] 31.5 g/dL 32-36 [facility] No Panel InformationOrdered By: Dr. Maciel on 09-28-2022 D-Dimer Quantitative (PE/DVT) 0.33 FEU/ug/m 0.27-0.49 [facility] Comment on above: NORMAL D-Dimer level (<0.50) indicates no DVT or PE. Estimated GFR (MDRD) Amer 55 mL/min >60 [facility] Comment on above: GFR Calc Estimated GFR (MDRD) Non-Af Amer 45 mL/min >60 [facility] Comment on above: Non- GFR Calc Free Triiodothyronine (T3) pg/dL 2.1 pg/mL 2.18-3.98 [facility] Thyroid Stimulating Hormone (TSH) 2.34 uIU/mL 0.358-3.74 [facility] Platelets bldOrdered By: Dr. Maciel on 09-28-2022 Platelets (Bld) [#/Vol] 276 10*3/uL 150-450 [facility] Serum or plasma albumin odilon urement (mass/volume)Ordered By: Dr. Maciel on 09-28-2022 Albumin [Mass/Vol] 3.7 g/dL 3.2-5.0 [facility] Serum or plasma albumin/glob ulin mass ratioOrdered By: Dr. Maciel on 09-28-2022 Albumin/Globulin [Mass ratio] 1.2 {ratio} 0.9-2.4 [facility] Serum or plasma calcium odilon urement (mass/volume)Ordered By: Dr. Maciel on 09-28-2022 Calcium [Mass/Vol] 9.3 mg/dL 8.5-10.1 [facility] Serum or plasma cholesterol in HDL measurement (mass/volume)Ordered By: Dr. Maciel on 09-28-2022 Cholesterol in HDL [Mass/Vol] 57 mg/dL >40 [facility] Comment on above: The drugs N-Acetylcy steine and Metamizole may falsely depress this assay. Reference Range HDL <40 mg/dL Low HDL Cholesterol HDL >or= 60 mg/dL High HDL Cholesterol Serum or plasma cholesterol in VLDL measurement (mass/volume)Ordered By: Dr. Maciel on 09-28-2022 Cholesterol in VLDL [Mass/Vol] 30 mg/dL 5-40 [facility] Serum or plasma creatinine m easurement (mass/volume)Ordered By: Dr. Maciel on 09-28-2022 Creatinine [Mass/Vol] 1.56 mg/dL 0.70-1.30 [facility] Comment on above: The validity of the calculated GFR & GFRAA in patients over 70 years has not been determined. Clinical correlation is essential. Serum or plasma low density lipoprotein (LDL) cholesterol measurement (mass/volume)Ordered By: Dr. Maciel on 09-28-2022 Cholesterol in LDL [Mass/Vol] 65 mg/dL 0-130 [facility] Serum or plasma urea nitroge n measurement (mass/volume)Ordered By: Dr. Maciel on 09-28-2022 Urea nitrogen [Mass/Vol] 23 mg/dL 7-18 [facility] Thin prep Papanicolaou smear with manual screeningOrdered By: Dr. Maciel on 09-28-2022 Thin prep Papanicolaou smear with manual screening 20 U/L 15-37 [facility] Thin prep Papanicolaou smear with manual screening 5 5-15 [facility] Whole blood hemoglobin A1c/t otal hemoglobin ratio (mass fraction)Ordered By: Dr. Maciel on 09-28-2022 HbA1c (Bld) [Mass fraction] 6.3 % 3.8-5.6 [facility] Comment on above: Normal < 5.7 % Predi abetic 5.7 - 6.4 % Diabetic >or= 6.5 % Please note range changes. Basophil percentageon 2021 Chloride [Moles/Vol] 101 mmol/L 98-107 [facility] Work Phone: Glucose [Mass/Vol] 182 mg/dL 74-106 [facility] Work Phone: Comment on above: Fasting Glucose resu lt greater than or equal to 126 mg/dL suggests DIABETES MELLITUS per A.D.A. criteria. Potassium [Moles/Vol] 4.2 mmol/L 3.5-5.1 [facility] Work Phone: Sodium [Moles/Vol] 143 mmol/L 136-145 [facility] Work Phone: Iron measurement (mass/mass) on 03-03-2022 Iron (Unsp spec) [Mass/Mass] 215 ug/dL 65-175 [facility] Work Phone: Laboratory - Chemistry and C hemistry - challengeon 03-03-2022 CO2 [Moles/Vol] 30.0 mmol/L 21.0-32.0 [facility] Work Phone: Urea nitrogen/Creatinine [Mass ratio] 12.4 mg/mg 10-20 [facility] Work Phone: No Panel Informationon 03-03 Estimated GFR (MDRD) Amer 53 mL/min >60 [facility] Work Phone: Comment on above: GFR Calc Estimated GFR (MDRD) Non-Af Amer 44 mL/min >60 [facility] Work Phone: Comment on above: Non- GFR Calc Total Iron Binding Capacity 430 ug/dL 250-450 [facility] Work Phone: Serum or plasma calcium odilon urement (mass/volume)on 03-03-2022 Calcium [Mass/Vol] 9.7 mg/dL 8.5-10.1 [facility] Work Phone: Serum or plasma creatinine m easurement (mass/volume)on 03-03-2022 Creatinine [Mass/Vol] 1.61 mg/dL 0.70-1.30 [facility] Work Phone: Comment on above: The validity of the calculated GFR & GFRAA in patients over 70 years has not been determined. Clinical correlation is essential. Serum or plasma iron saturat ion measurement (mass fraction)on 03-03-2022 Iron saturation [Mass fraction] 50.0 % 15.0-55.0 [facility] Work Phone: Serum or plasma urea nitroge n measurement (mass/volume)on 03-03-2022 Urea nitrogen [Mass/Vol] 20 mg/dL 7-18 [facility] Work Phone: [phone] Thin prep Papanicolaou smear with manual screeningon 03-03-2022 Thin prep Papanicolaou smear with manual screening 12 5-15 [facility] Work Phone: [phone] Absolute lymphocyte counton 02-16-2022 Lymphocytes Auto (Unsp spec) [#/Vol] 1.20 10*3/uL 0.83-4.51 [facility] Work Phone: Basophil percentageon 2021 Basophils/100 WBC (Bld) 0.9 % 0-1 [facility] Work Phone: Bilirubin [Mass/Vol] 0.70 mg/dL 0.20-1.00 [facility] Work Phone: Comment on above: For patients on eltr ombopag therapy, use of Dimension [place] TBIL is not recommended. Chloride [Moles/Vol] 103 mmol/L 98-107 [facility] Work Phone: Eosinophils/100 WBC (Bld) 3.2 % 0-5 [facility] Work Phone: Glucose [Mass/Vol] 133 mg/dL 74-106 [facility] Work Phone: Comment on above: Fasting Glucose resu lt greater than or equal to 126 mg/dL suggests DIABETES MELLITUS per A.D.A. criteria. Neutrophils (Bld) [#/Vol] 3.3 10*3/uL 2.0-7.7 [facility] Work Phone: Neutrophils/100 WBC (Bld) 61.6 % 47-70 [facility] Work Phone: Potassium [Moles/Vol] 5.5 mmol/L 3.5-5.1 [facility] Work Phone: Comment on above: Moderate Hemolysis, Result may be falsely increased. Protein [Mass/Vol] 7.1 g/dL 6.4-8.2 [facility] Work Phone: Sodium [Moles/Vol] 139 mmol/L 136-145 [facility] Work Phone: WBC (Bld) [#/Vol] 5.4 10*3/uL 4.4-11.0 [facility] Work Phone: Blood erythrocytes count (nu mber/volume)on 02-16-2022 RBC (Bld) [#/Vol] 3.85 10*6/uL 4.6-6.2 [facility] Work Phone: Blood hemoglobin measurement (mass/volume)on 02-16-2022 Hemoglobin (Bld) [Mass/Vol] 11.1 g/dL 13.0-16.5 [facility] Work Phone: Blood lymphocytes/100 leukoc yteson 02-16-2022 Lymphocytes/100 WBC (Bld) 22.4 % 19-41 [facility] Work Phone: Blood monocytes/100 leukocyt eson 02-16-2022 Monocytes/100 WBC (Bld) 11.2 % 0-10 [facility] Work Phone: Blood platelet mean volumeon 02-16-2022 Platelet mean volume (Bld) [Entitic vol] 9.1 fL 6.2-12.0 [facility] Work Phone: Determination of erythrocyte mean corpuscular volume (MCV)on 02-16-2022 MCV (RBC) [Entitic vol] 89.9 fL 80-94 [facility] Work Phone: [phone] Hematocrit Auto (Bld) [Volum e fraction]on 02-16-2022 Hematocrit (Bld) [Volume fraction] 34.6 % 40-54 [facility] Work Phone: Iron measurement (mass/mass) on 02-16-2022 Iron (Unsp spec) [Mass/Mass] 63 ug/dL 65-175 [facility] Work Phone: Comment on above: Moderate Hemolysis, Result may be falsely increased. Laboratory - Chemistry and C hemistry - challengeon 02-16-2022 ALP [Catalytic activity/Vol] 26 U/L 45-117 [facility] Work Phone: [phone] ALT [Catalytic activity/Vol] 16 U/L 16-61 [facility] Work Phone: [phone] CO2 [Moles/Vol] 27.0 mmol/L 21.0-32.0 [facility] Work Phone: [phone] Free T4 [Mass/Vol] 0.90 ng/dL 0.76-1.46 [facility] Work Phone: [phone] Globulin (S) [Mass/Vol] 3.4 g/dL 2.2-4.2 [facility] Work Phone: [phone] Urea nitrogen/Creatinine [Mass ratio] 13.3 mg/mg 10-20 [facility] Work Phone: [phone] Laboratory - Hematology and Cell countson 02-16-2022 Erythrocyte distribution width (RBC) [Entitic vol] 57.6 fL 35.1-43.9 [facility] Work Phone: [phone] Erythrocyte distribution width (RBC) [Ratio] 17.4 % 11.6-14.6 [facility] Work Phone: [phone] Immature granulocytes/100 WBC (Bld) 0.700 % 0.0-0.9 [facility] Work Phone: [phone] Comment on above: IG% - Immature Granu locytes (promyelocytes, myelocytes and metamyelocytes) > 1% indicates that a LEFT SHIFT is Present. MCH (RBC) [Entitic mass] 28.8 pg 27.0-32.0 [facility] Work Phone: [phone] Nucleated RBC/100 WBC (Bld) [Ratio] 0 % 0-5 [facility] Work Phone: [phone] MCHC Auto (RBC) [Mass/Vol]on 02-16-2022 MCHC (RBC) [Mass/Vol] 32.1 g/dL 32-36 [facility] Work Phone: [phone] Panel Informationon 02-16 Estimated GFR (MDRD) Amer 46 mL/min >60 [facility] Work Phone: [phone] Comment on above: GFR Calc Estimated GFR (MDRD) Non-Af Amer 38 mL/min >60 [facility] Work Phone: [phone] Comment on above: Non- GFR Calc Free Triiodothyronine (T3) pg/dL 2.5 pg/mL 2.18-3.98 [facility] Work Phone: [phone] Prostate Specific Antigen Screen 1.22 ng/mL 0.00-4.00 [facility] Work Phone: [phone] Comment on above: This test was perfor med using the TPSA assay method for the[employer] flint chemistry system. Values obtained with differentassay methods cannot be used interchangably.When changing PSA assays in the course of monitoring apatient, additional sequential testing should be carriedout to confirm baseline values. Thyroid Stimulating Hormone (TSH) 2.23 uIU/mL 0.358-3.74 [facility] Work Phone: [phone] Total Iron Binding Capacity 454 ug/dL 250-450 [facility] Work Phone: [phone] Comment on above: Moderate Hemolysis, Result may be falsely increased. Vitamin D 25-Hydroxy 59.5 ng/mL [facility] Work Phone: Comment on above: Vitamin D 25(OH) Sta tus Range Deficiency <20 ng/mL (50nmol/L) Insufficiency 20 - 30 ng/mL (50 - 75 nmol/L) Sufficiency 30 - 100 ng/mL (75 - 250 nmol/L) Toxicity >100 ng/mL (>250 nmol/L) Platelets bldon 02-16-2022 Platelets (Bld) [#/Vol] 289 10*3/uL 150-450 [facility] Work Phone: [phone] Serum or plasma albumin odilon urement (mass/volume)on 02-16-2022 Albumin [Mass/Vol] 3.7 g/dL 3.2-5.0 [facility] Work Phone: [phone] Serum or plasma albumin/glob ulin mass ratioon 02-16-2022 Albumin/Globulin [Mass ratio] 1.1 {ratio} 0.9-2.4 [facility] Work Phone: [phone] Serum or plasma calcium odilon urement (mass/volume)on 02-16-2022 Calcium [Mass/Vol] 10.0 mg/dL 8.5-10.1 [facility] Work Phone: [phone] Serum or plasma creatinine m easurement (mass/volume)on 02-16-2022 Creatinine [Mass/Vol] 1.80 mg/dL 0.70-1.30 [facility] Work Phone: Comment on above: The validity of the calculated GFR & GFRAA in patients over 70 years has not been determined. Clinical correlation is essential. Serum or plasma iron saturat ion measurement (mass fraction)on 02-16-2022 Iron saturation [Mass fraction] 13.9 % 15.0-55.0 [facility] Work Phone: Serum or plasma urea nitroge n measurement (mass/volume)on 02-16-2022 Urea nitrogen [Mass/Vol] 24 mg/dL 7-18 [facility] Work Phone: Thin prep Papanicolaou smear with manual screeningon 02-16-2022 Thin prep Papanicolaou smear with manual screening 30 U/L 15-37 [facility] Work Phone: Comment on above: Moderate Hemolysis, Result may be falsely increased. Thin prep Papanicolaou smear with manual screening 9 5-15 [facility] Work Phone: Laboratory - Hematology and Cell countson 02-14-2022 HbA1c (Bld) [Mass fraction] 6.3 % 4.2-6.3 [facility] Work Phone: Absolute lymphocyte counton 10-26-2021 Lymphocytes Auto (Unsp spec) [#/Vol] 1.47 10*3/uL 0.83-4.51 [facility] Work Phone: Basophil percentageon 2021 Basophils/100 WBC (Bld) 0.7 % 0-1 [facility] Work Phone: Chloride [Moles/Vol] 103 mmol/L 98-107 [facility] Work Phone: [phone] Eosinophils/100 WBC (Bld) 3.4 % 0-5 [facility] Work Phone: Glucose [Mass/Vol] 109 mg/dL 74-106 [facility] Work Phone: Comment on above: Fasting Glucose resu lt from 100 to 125 mg/dL suggests IMPAIRED HOMEOSTASIS per A.D.A. criteria. Neutrophils (Bld) [#/Vol] 3.3 10*3/uL 2.0-7.7 [facility] Work Phone: Neutrophils/100 WBC (Bld) 58.1 % 47-70 [facility] Work Phone: Potassium [Moles/Vol] 4.7 mmol/L 3.5-5.1 [facility] Work Phone: Sodium [Moles/Vol] 138 mmol/L 136-145 [facility] Work Phone: WBC (Bld) [#/Vol] 5.6 10*3/uL 4.4-11.0 [facility] Work Phone: Blood erythrocytes count (nu mber/volume)on 10-26-2021 RBC (Bld) [#/Vol] 4.32 10*6/uL 4.6-6.2 [facility] Work Phone: Blood hemoglobin measurement (mass/volume)on 10-26-2021 Hemoglobin (Bld) [Mass/Vol] 11.6 g/dL 13.0-16.5 [facility] Work Phone: Blood lymphocytes/100 leukoc yteson 10-26-2021 Lymphocytes/100 WBC (Bld) 26.1 % 19-41 [facility] Work Phone: Blood monocytes/100 leukocyt eson 10-26-2021 Monocytes/100 WBC (Bld) 11.0 % 0-10 [facility] Work Phone: Blood platelet mean volumeon 10-26-2021 Platelet mean volume (Bld) [Entitic vol] 9.3 fL 6.2-12.0 [facility] Work Phone: Determination of erythrocyte mean corpuscular volume (MCV)on 10-26-2021 MCV (RBC) [Entitic vol] 86.1 fL 80-94 [facility] Work Phone: Hematocrit Auto (Bld) [Volum e fraction]on 10-26-2021 Hematocrit (Bld) [Volume fraction] 37.2 % 40-54 [facility] Work Phone: Laboratory - Chemistry and C hemistry - challengeon 10-26-2021 CO2 [Moles/Vol] 28.0 mmol/L 21.0-32.0 [facility] Work Phone: [phone] Natriuretic peptide B (Bld) [Mass/Vol] 98.4 pg/mL 0-100 [facility] Work Phone: [phone] Urea nitrogen/Creatinine [Mass ratio] 14.4 mg/mg 10-20 [facility] Work Phone: [phone] Laboratory - Hematology and Cell countson 10-26-2021 Erythrocyte distribution width (RBC) [Entitic vol] 50.3 fL 35.1-43.9 [facility] Work Phone: [phone] Erythrocyte distribution width (RBC) [Ratio] 16.2 % 11.6-14.6 [facility] Work Phone: [phone] Immature granulocytes/100 WBC (Bld) 0.700 % 0.0-0.9 [facility] Work Phone: [phone] Comment on above: IG% - Immature Granu locytes (promyelocytes, myelocytes and metamyelocytes) > 1% indicates that a LEFT SHIFT is Present. MCH (RBC) [Entitic mass] 26.9 pg 27.0-32.0 [facility] Work Phone: [phone] Nucleated RBC/100 WBC (Bld) [Ratio] 0 % 0-5 [facility] Work Phone: [phone] MCHC Auto (RBC) [Mass/Vol]on 10-26-2021 MCHC (RBC) [Mass/Vol] 31.2 g/dL 32-36 [facility] Work Phone: [phone] Panel Informationon 10-26 Estimated GFR (MDRD) Amer 56 mL/min >60 [facility] Work Phone: [phone] Comment on above: GFR Calc Estimated GFR (MDRD) Non-Af Amer 46 mL/min >60 [facility] Work Phone: [phone] Comment on above: Non- GFR Calc Platelets bldon 10-26-2021 Platelets (Bld) [#/Vol] 259 10*3/uL 150-450 [facility] Work Phone: [phone] Serum or plasma calcium odilon urement (mass/volume)on 10-26-2021 Calcium [Mass/Vol] 10.1 mg/dL 8.5-10.1 [facility] Work Phone: [phone] Serum or plasma creatinine m easurement (mass/volume)on 10-26-2021 Creatinine [Mass/Vol] 1.53 mg/dL 0.70-1.30 [facility] Work Phone: [phone] Comment on above: The validity of the calculated GFR & GFRAA in patients over 70 years has not been determined. Clinical correlation is essential. Serum or plasma urea nitroge n measurement (mass/volume)on 10-26-2021 Urea nitrogen [Mass/Vol] 22 mg/dL 7-18 [facility] Work Phone: [phone] Thin prep Papanicolaou smear with manual screeningon 10-26-2021 Thin prep Papanicolaou smear with manual screening 7 5-15 [facility] Work Phone: [phone] Absolute lymphocyte counton 10-13-2021 Lymphocytes Auto (Unsp spec) [#/Vol] 0.99 10*3/uL 0.83-4.51 [facility] Work Phone: Basophil percentageon 2021 Basophils/100 WBC (Bld) 0.9 % 0-1 [facility] Work Phone: [phone] Bilirubin [Mass/Vol] 0.70 mg/dL 0.20-1.00 [facility] Work Phone: [phone] Comment on above: For patients on eltr ombopag therapy, use of Dimension [place] TBIL is not recommended. Chloride [Moles/Vol] 102 mmol/L 98-107 [facility] Work Phone: [phone] Cholesterol [Mass/Vol] 169 mg/dL <200 [facility] Work Phone: [phone] Comment on above: <200 mg/dL Desirable 200-240 mg/dL Borderline >240 mg/dL High Risk Eosinophils/100 WBC (Bld) 3.1 % 0-5 [facility] Work Phone: [phone] Glucose [Mass/Vol] 144 mg/dL 74-106 [facility] Work Phone: Comment on above: Fasting Glucose resu lt greater than or equal to 126 mg/dL suggests DIABETES MELLITUS per A.D.A. criteria. Neutrophils (Bld) [#/Vol] 2.9 10*3/uL 2.0-7.7 [facility] Work Phone: Neutrophils/100 WBC (Bld) 62.2 % 47-70 [facility] Work Phone: [phone] Potassium [Moles/Vol] 4.2 mmol/L 3.5-5.1 [facility] Work Phone: Protein [Mass/Vol] 7.1 g/dL 6.4-8.2 [facility] Work Phone: Sodium [Moles/Vol] 137 mmol/L 136-145 [facility] Work Phone: Triglyceride [Mass/Vol] 247 mg/dL <199 [facility] Work Phone: Comment on above: The drugs N-Acetylcy steine and Metamizole may falsely depress this assay.Serum Triglycerides Reference Interval Normal <150 mg/dL Borderline high 150 - 199 mg/dL High 200 - 499 mg/dL Very High > or = 500 mg/dL WBC (Bld) [#/Vol] 4.6 10*3/uL 4.4-11.0 [facility] Work Phone: Blood erythrocytes count (nu mber/volume)on 10-13-2021 RBC (Bld) [#/Vol] 4.18 10*6/uL 4.6-6.2 [facility] Work Phone: Blood hemoglobin measurement (mass/volume)on 10-13-2021 Hemoglobin (Bld) [Mass/Vol] 11.2 g/dL 13.0-16.5 [facility] Work Phone: Blood lymphocytes/100 leukoc yteson 10-13-2021 Lymphocytes/100 WBC (Bld) 21.6 % 19-41 [facility] Work Phone: Blood monocytes/100 leukocyt eson 10-13-2021 Monocytes/100 WBC (Bld) 11.5 % 0-10 [facility] Work Phone: [phone] Blood platelet mean volumeon 10-13-2021 Platelet mean volume (Bld) [Entitic vol] 10.5 fL 6.2-12.0 [facility] Work Phone: [phone] Determination of erythrocyte mean corpuscular volume (MCV)on 10-13-2021 MCV (RBC) [Entitic vol] 86.4 fL 80-94 [facility] Work Phone: [phone] Hematocrit Auto (Bld) [Volum e fraction]on 10-13-2021 Hematocrit (Bld) [Volume fraction] 36.1 % 40-54 [facility] Work Phone: Laboratory - Chemistry and C hemistry - challengeon 10-13-2021 ALP [Catalytic activity/Vol] 27 U/L 45-117 [facility] Work Phone: [phone] ALT [Catalytic activity/Vol] 21 U/L 16-61 [facility] Work Phone: [phone] CO2 [Moles/Vol] 28.0 mmol/L 21.0-32.0 [facility] Work Phone: [phone] Cobalamin (Vitamin B12) [Mass/Vol] 891 pg/mL 211-911 [facility] Work Phone: [phone] Free T4 [Mass/Vol] 0.93 ng/dL 0.76-1.46 [facility] Work Phone: [phone] Globulin (S) [Mass/Vol] 3.4 g/dL 2.2-4.2 [facility] Work Phone: [phone] Urea nitrogen/Creatinine [Mass ratio] 15.2 mg/mg 10-20 [facility] Work Phone: [phone] Laboratory - Hematology and Cell countson 10-13-2021 Erythrocyte distribution width (RBC) [Entitic vol] 49.8 fL 35.1-43.9 [facility] Work Phone: Erythrocyte distribution width (RBC) [Ratio] 15.8 % 11.6-14.6 [facility] Work Phone: Immature granulocytes/100 WBC (Bld) 0.700 % 0.0-0.9 [facility] Work Phone: [phone] Comment on above: IG% - Immature Granu locytes (promyelocytes, myelocytes and metamyelocytes) > 1% indicates that a LEFT SHIFT is Present. MCH (RBC) [Entitic mass] 26.8 pg 27.0-32.0 [facility] Work Phone: Nucleated RBC/100 WBC (Bld) [Ratio] 0 % 0-5 [facility] Work Phone: [phone] MCHC Auto (RBC) [Mass/Vol]on 10-13-2021 MCHC (RBC) [Mass/Vol] 31.0 g/dL 32-36 [facility] Work Phone: No Panel Informationon 10-13 Estimated GFR (MDRD) Amer 63 mL/min >60 [facility] Work Phone: Comment on above: GFR Calc Estimated GFR (MDRD) Non-Af Amer 52 mL/min >60 [facility] Work Phone: Comment on above: Non- GFR Calc Free Triiodothyronine (T3) pg/dL 2.2 pg/mL 2.18-3.98 [facility] Work Phone: [phone] Thyroid Stimulating Hormone (TSH) 2.15 uIU/mL 0.358-3.74 [facility] Work Phone: Vitamin D 25-Hydroxy 67.7 ng/mL [facility] Work Phone: [phone] Comment on above: Vitamin D 25(OH) Sta tus Range Deficiency <20 ng/mL (50nmol/L) Insufficiency 20 - 30 ng/mL (50 - 75 nmol/L) Sufficiency 30 - 100 ng/mL (75 - 250 nmol/L) Toxicity >100 ng/mL (>250 nmol/L) Platelets bldon 10-13-2021 Platelets (Bld) [#/Vol] 238 10*3/uL 150-450 [facility] Work Phone: Serum or plasma albumin odilon urement (mass/volume)on 10-13-2021 Albumin [Mass/Vol] 3.7 g/dL 3.2-5.0 [facility] Work Phone: Serum or plasma albumin/glob ulin mass ratioon 10-13-2021 Albumin/Globulin [Mass ratio] 1.1 {ratio} 0.9-2.4 [facility] Work Phone: Serum or plasma calcium odilon urement (mass/volume)on 10-13-2021 Calcium [Mass/Vol] 9.5 mg/dL 8.5-10.1 [facility] Work Phone: Serum or plasma cholesterol in HDL measurement (mass/volume)on 10-13-2021 Cholesterol in HDL [Mass/Vol] 41 mg/dL >40 [facility] Work Phone: Comment on above: The drugs N-Acetylcy steine and Metamizole may falsely depress this assay. Reference Range HDL <40 mg/dL Low HDL Cholesterol HDL >or= 60 mg/dL High HDL Cholesterol Serum or plasma cholesterol in VLDL measurement (mass/volume)on 10-13-2021 Cholesterol in VLDL [Mass/Vol] 49 mg/dL 5-40 [facility] Work Phone: Serum or plasma creatinine m easurement (mass/volume)on 10-13-2021 Creatinine [Mass/Vol] 1.38 mg/dL 0.70-1.30 [facility] Work Phone: Comment on above: The validity of the calculated GFR & GFRAA in patients over 70 years has not been determined. Clinical correlation is essential. Serum or plasma low density lipoprotein (LDL) cholesterol measurement (mass/volume)on 10-13-2021 Cholesterol in LDL [Mass/Vol] 79 mg/dL 0-130 [facility] Work Phone: Serum or plasma urea nitroge n measurement (mass/volume)on 10-13-2021 Urea nitrogen [Mass/Vol] 21 mg/dL 7-18 [facility] Work Phone: Thin prep Papanicolaou smear with manual screeningon 10-13-2021 Thin prep Papanicolaou smear with manual screening 17 U/L 15-37 [facility] Work Phone: Thin prep Papanicolaou smear with manual screening 7 5-15 [facility] Work Phone: Laboratory - Hematology and Cell countson 09-07-2021 HbA1c (Bld) [Mass fraction] 7.7 % [facility] Work Phone: Laboratory - Chemistry and C hemistry - challengeon 06-22-2021 Cobalamin (Vitamin B12) [Mass/Vol] 717 pg/mL 211-911 [facility] Work Phone: Office Visit: abdominal pain on 05-09-2017 Documentation of current medications (procedure) Done Invalid Interpretation Code [facility] [employer] Work Phone: Fall risk assessment No Invalid Interpretation Code [facility] [employer] Work Phone: Tobacco smoking status NHIS Never Invalid Interpretation Code [facility] [employer] Work Phone: Tobacco use HS Former smoker Invalid Interpretation Code [facility] [employer] Work Phone: Lab Report: BNP,B-Type NATRI URETIC PEPTIDEon 01-20-2017 BNP 20.0 pg/mL Invalid Interpretation Code 0-100 [facility] [employer] Work Phone: Lab Report: Basic Metabolic Profile (BMP)on 01-20-2017 Anion gap 7 mmol/L Invalid Interpretation Code 5-15 [facility] [employer] Work Phone: BUN/Creatinine Ratio 14.6 RATIO Invalid Interpretation Code 10-20 [facility] [employer] Work Phone: Calcium 10.0 mg/dL Invalid Interpretation Code 8.5-10.1 [facility] [employer] Work Phone: Chloride 101 mmol/L Invalid Interpretation Code 98-107 [facility] [employer] Work Phone: CO2 30.0 mmol/L Invalid Interpretation Code 21.0-32.0 [facility] [employer] Work Phone: Creatinine 1.30 mg/dL Invalid Interpretation Code 0.70-1.30 [facility] [employer] Work Phone: [phone] eGFR (non-black) 68 mL/min/{1.73_m2} Invalid Interpretation Code >60 [facility] [employer] Work Phone: eGFR (non-black) 57 mL/min/{1.73_m2} Low >60 [facility] [employer] Work Phone: [phone] Glucose mass conc 110 mg/dL Invalid Interpretation Code 70-110 [facility] [employer] Work Phone: [phone] Potassium molar conc 4.5 mmol/L Invalid Interpretation Code 3.5-5.1 [facility] [employer] Work Phone: [phone] Sodium 138 mmol/L Invalid Interpretation Code 136-145 [facility] [employer] Work Phone: [phone] Urea nitrogen 19 mg/dL High 7-18 [facility] [employer] Work Phone: Lab Report: CBC W/Diff, Auto matedon 01-20-2017 Absolute Neut 3.3 X10 3/UL Invalid Interpretation Code 2.0-7.7 [facility] [employer] Work Phone: [phone] Basophils/100 WBC Auto (Bld) 1.0 % Invalid Interpretation Code 0-1 [facility] [employer] Work Phone: [phone] Eosinophils/100 leukocytes 5.6 % High 0-5 [facility] [employer] Work Phone: Erythrocyte distribution width Auto Ratio (RBC) 13.9 % Invalid Interpretation Code 11.6-14.6 [facility] [employer] Work Phone: [phone] Erythrocytes (RBC) 4.45 10*6/uL Low 4.6-6.2 [facility] [employer] Work Phone: Hematocrit (HCT) 42.4 % Invalid Interpretation Code 40-54 [facility] [employer] Work Phone: [phone] Hemoglobin mass conc (Bld) 14.0 g/dL Invalid Interpretation Code 13.0-16.5 [facility] [employer] Work Phone: Immature granulocytes/100 WBC (Bld) 0.700 % Invalid Interpretation Code 0.0-0.9 [facility] [employer] Work Phone: Lymphocytes 1.55 X10 3/UL Invalid Interpretation Code 0.83-4.51 [facility] [employer] Work Phone: Lymphocytes/100 leukocytes 27.1 % Invalid Interpretation Code 19-41 [facility] [employer] Work Phone: MCH 31.5 pg Invalid Interpretation Code 27.0-32.0 [facility] [employer] Work Phone: MCHC mass conc (RBC) 33.0 G/GL Invalid Interpretation Code 32-36 [facility] [employer] Work Phone: MCV 95.3 fL High 80-94 [facility] [employer] Work Phone: Monocytes/100 leukocytes 7.5 % Invalid Interpretation Code 0-10 [facility] [employer] Work Phone: Neutrophils/100 WBC Auto (Bld) 58.1 % Invalid Interpretation Code 47-70 [facility] [employer] Work Phone: Platelets 185 10*3/mm3 Invalid Interpretation Code 150-450 [facility] [employer] Work Phone: PMV by Ismael 9.8 fL Invalid Interpretation Code 6.2-12.0 [facility] [employer] Work Phone: RDW SD 48.2 fL High 35.1-43.9 [facility] [employer] Work Phone: WBC (Leukocytes) 5.7 10*3/uL Invalid Interpretation Code 4.4-11.0 [facility] [employer] Work Phone: 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 Left ventricular Ejection fraction 55 % Invalid Interpretation Code [facility] [employer] Work Phone: Lab Report: Ferritinon 03-21 Ferritin 7 ng/mL Low 26-388 [facility] [employer] Work Phone: Lab Report: Iron+Iron Bindin g Capacityon 03-21-2016 Iron 24 ug/dL Low 65-175 [facility] [employer] Work Phone: iron binding capacity, total 512 ug/dL High 250-450 [facility] [employer] Work Phone: iron saturation percent, serum 4.7 % Low 15.0-55.0 [facility] [employer] Work Phone: Lab Report: Retic Panelon RET-HE 22.4 pg Low 30-35 [facility] [employer] Work Phone: [phone] Reticulocytes/100 erythrocytes 1.25 % Invalid Interpretation Code 0.5-1.5 [facility] [employer] Work Phone: Replaced Document: Miguelito CASTELLANOS Observationson 03-08-2016 BUN (urea nitrogen) Sinus Rhythm -Right bundle branch block. ABNORMAL Invalid Interpretation Code [facility] [employer] Work Phone: EKG QRS axis -12 deg Invalid Interpretation Code [facility] [employer] Work Phone: [phone] P [place] 40 deg Invalid Interpretation Code [facility] [employer] Work Phone: [phone] [place] Interval 138 ms Invalid Interpretation Code [facility] [employer] Work Phone: Pulse (Heart Rate) 76 /min Invalid Interpretation Code [facility] [employer] Work Phone: [phone] QRS Duration 136 ms Invalid Interpretation Code [facility] [employer] Work Phone: QT Interval new path ms Invalid Interpretation Code [facility] [employer] Work Phone: T [place] -1 deg Invalid Interpretation Code [facility] [employer] Work Phone: Lab Report: Lipid Profileon 10-19-2015 Cholesterol 140 mg/dL Invalid Interpretation Code 200 [facility] [employer] Work Phone: HDL Cholesterol 35 mg/dL Low [facility] [employer] Work Phone: LDL Cholesterol 72 mg/dL Invalid Interpretation Code 0-130 [facility] [employer] Work Phone: Triglyceride 163 mg/dL Invalid Interpretation Code [facility] [employer] Work Phone: very low density lipoproteins 33 mg/dL Invalid Interpretation Code 5-40 [facility] [employer] Work Phone: Lab Report: Liver Profileon 10-19-2015 Alanine aminotransferase (ALT) 38 U/L Invalid Interpretation Code 12-78 [facility] [employer] Work Phone: Albumin 3.9 g/dL Invalid Interpretation Code 3.4-5.0 [facility] [employer] Work Phone: Alkaline phosphatase (ALP) 37 U/L Low 50-136 [facility] [employer] Work Phone: Aspartate aminotransferase (AST) 30 U/L Invalid Interpretation Code 15-37 [facility] [employer] Work Phone: Bilirubin (direct) 0.14 mg/dL Invalid Interpretation Code 0.00-0.30 [facility] [employer] Work Phone: Bilirubin (total) 0.60 mg/dL Invalid Interpretation Code 0.20-1.00 [facility] [employer] Work Phone: Globulin 3.1 g/dL Invalid Interpretation Code 2.3-3.5 [facility] [employer] Work Phone: Protein 7.0 g/dL Invalid Interpretation Code 6.4-8.2 [facility] [employer] Work Phone: Office Visit: [facility] 08-27-19 16 Fall risk assessment Invalid Interpretation Code [facility] [employer] Work Phone: Office Visiton 05-29-2014 cardiac risk group C Invalid Interpretation Code [facility] [employer] Work Phone: General cardiovascular disease 10Y risk [#] [place].D'Agostino N/A Invalid Interpretation Code [facility] [employer] Work Phone: Smoking cessation education (procedure) yes Invalid Interpretation Code [facility] [employer] Work Phone: Vital Signs Date Time Vital Sign Value Performing Clinician Facility 01-06-2025 14:06-0400 Body height 162.[address] Keron Maciel MD Work Phone: [facility] 01-06-2025 14:06-0400 Body mass index (BMI) [Ratio] 38.6 kg/m2 Dr. Keron Maciel MD Work Phone: [facility] 01-06-2025 14:06-0400 Body temperature 98.4 [degF] Dr. Keron Maciel MD Work Phone: [facility] 01-06-2025 14:06-0400 Body weight 102.[address] Keron Maciel MD Work Phone: [facility] 01-06-2025 14:06-0400 Diastolic blood pressure 75 mm[Hg] Dr. Keron Maciel MD Work Phone: [facility] 01-06-2025 14:06-0400 Heart rate 63 /min Dr. Keron Maciel MD Work Phone: [facility] 01-06-2025 14:06-0400 Respiratory rate 16 /min Dr. Keron Maciel MD Work Phone: [facility] 01-06-2025 14:06-0400 SaO2% (BldA) [Mass fraction] 94 % Dr. Keron Maciel MD Work Phone: [facility] 01-06-2025 14:06-0400 Systolic blood pressure 134 mm[Hg] Dr. Keron Maciel MD Work Phone: [facility] 12-31-2024 17:18-0400 Body temperature 98.8 [degF] Dr. Keron Maciel MD Work Phone: [facility] 12-31-2024 17:18-0400 Diastolic blood pressure 96 mm[Hg] Dr. Keron Maciel MD Work Phone: [facility] 12-31-2024 17:18-0400 Heart rate 69 /min Dr. Keron Maciel MD Work Phone: [facility] 12-31-2024 17:18-0400 Respiratory rate 16 /min Dr. Keron Maciel MD Work Phone: [facility] 12-31-2024 17:18-0400 SaO2% (BldA) [Mass fraction] 96 % Dr. Keron Maciel MD Work Phone: [facility] 12-31-2024 17:18-0400 Systolic blood pressure 148 mm[Hg] Dr. Keron Maciel MD Work Phone: [facility] 12-31-2024 14:26-0400 Body height 162.[address] Keron Maciel MD Work Phone: [facility] 12-31-2024 14:26-0400 Body mass index (BMI) [Ratio] 39.1 kg/m2 Dr. Keron Maciel MD Work Phone: [facility] 12-31-2024 14:26-0400 Body weight 103.[address] Keron Maciel MD Work Phone: [facility] 12-30-2024 11:20-0400 Body height 160.[address] Keron Maciel MD Work Phone: [facility] 12-30-2024 11:20-0400 Body mass index (BMI) [Ratio] 39.8 kg/m2 Dr. Keron Maciel MD Work Phone: [facility] 12-30-2024 11:20-0400 Body temperature 98.4 [degF] Dr. Keron Maciel MD Work Phone: [facility] 12-30-2024 11:20-0400 Body weight 102.[address] Keron Maciel MD Work Phone: [facility] 12-30-2024 11:20-0400 Diastolic blood pressure 79 mm[Hg] Dr. Keron Maciel MD Work Phone: [facility] 12-30-2024 11:20-0400 Heart rate 74 /min Dr. Keron Maciel MD Work Phone: [facility] 12-30-2024 11:20-0400 Respiratory rate 16 /min Dr. Keron Maciel MD Work Phone: [facility] 12-30-2024 11:20-0400 SaO2% (BldA) [Mass fraction] 94 % Dr. Keron Maciel MD Work Phone: [facility] 12-30-2024 11:20-0400 Systolic blood pressure 144 mm[Hg] Dr. Keron Maciel MD Work Phone: [facility] 12-23-2024 13:40-0400 Body height 160.[address] Keron Maciel MD Work Phone: [facility] 12-23-2024 13:40-0400 Body mass index (BMI) [Ratio] 40.9 kg/m2 Dr. Keron Maciel MD Work Phone: [facility] 12-23-2024 13:40-0400 Body weight 104.[address] Keron Maciel MD Work Phone: [facility] 12-23-2024 13:40-0400 Diastolic blood pressure 67 mm[Hg] Dr. Keron Mcaiel MD Work Phone: [facility] 12-23-2024 13:40-0400 Heart rate 64 /min Dr. Keron Maciel MD Work Phone: [facility] 12-23-2024 13:40-0400 Respiratory rate 20 /min Dr. Keron Maciel MD Work Phone: [facility] 12-23-2024 13:40-0400 SaO2% (BldA) [Mass fraction] 95 % Dr. Keron Maciel MD Work Phone: [facility] 12-23-2024 13:40-0400 Systolic blood pressure 108 mm[Hg] Dr. Keron Maciel MD Work Phone: [facility] 12-21-2024 22:03-0400 Diastolic blood pressure 92 mm[Hg] Dr. Keron Maciel MD Work Phone: [facility] 12-21-2024 22:03-0400 Heart rate 86 /min Dr. Keron Maciel MD Work Phone: [facility] 12-21-2024 22:03-0400 Respiratory rate 18 /min Dr. Keron Maciel MD Work Phone: [facility] 12-21-2024 22:03-0400 SaO2% (BldA) [Mass fraction] 98 % Dr. Keron Maciel MD Work Phone: [facility] 12-21-2024 22:03-0400 Systolic blood pressure 165 mm[Hg] Dr. Keron Maciel MD Work Phone: [facility] 12-21-2024 20:36-0400 Body temperature 98 [degF] Dr. Keron Maciel MD Work Phone: [facility] 12-21-2024 16:08-0400 Body mass index (BMI) [Ratio] 40.8 kg/m2 Dr. Keron Maciel MD Work Phone: [facility] 12-21-2024 16:08-0400 Body weight 104.[address] Keron aMciel MD Work Phone: [facility] 12-21-2024 15:35-0400 Body height 160.[address] Keron Maciel MD Work Phone: [facility] 12-09-2024 14:04-0400 Body height 160.[address] Keron Maciel MD Work Phone: [facility] 12-09-2024 14:04-0400 Body mass index (BMI) [Ratio] 40.1 kg/m2 Dr. Keron Maciel MD Work Phone: [facility] 12-09-2024 14:04-0400 Body temperature 98.2 [degF] Dr. Keron Maciel MD Work Phone: [facility] 12-09-2024 14:04-0400 Body weight 102.[address] Kreon Maciel MD Work Phone: [facility] 12-09-2024 14:04-0400 Diastolic blood pressure 72 mm[Hg] Dr. Keron Maciel MD Work Phone: [facility] 12-09-2024 14:04-0400 Heart rate 68 /min Dr. Keron Maciel MD Work Phone: [facility] 12-09-2024 14:04-0400 Respiratory rate 16 /min Dr. Keron Maciel MD Work Phone: [facility] 12-09-2024 14:04-0400 SaO2% (BldA) [Mass fraction] 93 % Dr. Keron Maciel MD Work Phone: [facility] 12-09-2024 14:04-0400 Systolic blood pressure 116 mm[Hg] Dr. Keron Maciel MD Work Phone: [facility] 11-25-2024 11:11-0400 Body height 160.[address] Keron Maciel MD Work Phone: [facility] 11-25-2024 11:11-0400 Body mass index (BMI) [Ratio] 40 kg/m2 Dr. Keron Maciel MD Work Phone: [facility] 11-25-2024 11:11-0400 Body temperature 98.6 [degF] Dr. Keron Maciel MD Work Phone: [facility] 11-25-2024 11:11-0400 Body weight 102.[address] Keron Maciel MD Work Phone: [facility] 11-25-2024 11:11-0400 Diastolic blood pressure 75 mm[Hg] Dr. Keron Maciel MD Work Phone: [facility] 11-25-2024 11:11-0400 Heart rate 77 /min Dr. Keron Maciel MD Work Phone: [facility] 11-25-2024 11:11-0400 Respiratory rate 16 /min Dr. Keron Maciel MD Work Phone: [facility] 11-25-2024 11:11-0400 SaO2% (BldA) [Mass fraction] 90 % Dr. Keron Maciel MD Work Phone: [facility] 11-25-2024 11:11-0400 Systolic blood pressure 146 mm[Hg] Dr. Keron Maciel MD Work Phone: [facility] 11-20-2024 00:56-0400 Body temperature 97.6 [degF] Dr. Keron Maciel MD Work Phone: [facility] 11-20-2024 00:56-0400 Diastolic blood pressure 7 mm[Hg] Dr. Keron Maciel MD Work Phone: [facility] 11-20-2024 00:56-0400 Heart rate 66 /min Dr. Keron Maciel MD Work Phone: [facility] 11-20-2024 00:56-0400 Respiratory rate 20 /min Dr. Keron Maciel MD Work Phone: [facility] 11-20-2024 00:56-0400 SaO2% (BldA) [Mass fraction] 91 % Dr. Keron Maciel MD Work Phone: [facility] 11-20-2024 00:56-0400 Systolic blood pressure 149 mm[Hg] Dr. Keron Maciel MD Work Phone: [facility] 11-19-2024 22:51-0400 Body mass index (BMI) [Ratio] 39.2 kg/m2 Dr. Keron Maciel MD Work Phone: [facility] 11-19-2024 22:51-0400 Body weight 100.[address] Keron Maciel MD Work Phone: [facility] 11-19-2024 22:48-0400 Body height 160.[address] Keron Maciel MD Work Phone: [facility] 08-01-2024 14:42-0500 Diastolic blood pressure 60 mm[Hg] Dr. Keron Maciel MD Work Phone: [facility] 08-01-2024 14:42-0500 Systolic blood pressure 106 mm[Hg] Dr. Keron Maciel MD Work Phone: [facility] 08-01-2024 13:55-0500 Body mass index (BMI) [Ratio] 39.3 kg/m2 Dr. Keron Maciel MD Work Phone: [facility] 08-01-2024 13:55-0500 Body temperature 97.5 [degF] Dr. Keron Maciel MD Work Phone: [facility] 08-01-2024 13:55-0500 Body weight 100.[address] Keron Maciel MD Work Phone: [facility] 08-01-2024 13:55-0500 Heart rate 89 /min Dr. Keron Maciel MD Work Phone: [facility] 08-01-2024 13:55-0500 Respiratory rate 17 /min Dr. Keron Maciel MD Work Phone: [facility] 08-01-2024 13:55-0500 SaO2% (BldA) [Mass fraction] 97 % Dr. Keron Maciel MD Work Phone: [facility] 07-25-2024 14:40-0500 Body mass index (BMI) [Ratio] 39.7 kg/m2 Dr. Keron Maciel MD Work Phone: [facility] 07-25-2024 14:40-0500 Body temperature 98.2 [degF] Dr. Keron Maciel MD Work Phone: [facility] 07-25-2024 14:40-0500 Body weight 101.[address] Keron Maciel MD Work Phone: [facility] 07-25-2024 14:40-0500 Diastolic blood pressure 83 mm[Hg] Dr. Keron Maciel MD Work Phone: [facility] 07-25-2024 14:40-0500 Heart rate 68 /min Dr. Keron Maciel MD Work Phone: [facility] 07-25-2024 14:40-0500 Respiratory rate 16 /min Dr. Keron Maciel MD Work Phone: [facility] 07-25-2024 14:40-0500 SaO2% (BldA) [Mass fraction] 96 % Dr. Keron Maciel MD Work Phone: [facility] 07-25-2024 14:40-0500 Systolic blood pressure 130 mm[Hg] Dr. Keron Maciel MD Work Phone: [facility] 09-14-2023 15:11-0400 Body height 162.[address] Keron Maciel Work Phone: [facility] 09-14-2023 15:11-0400 Body mass index (BMI) [Ratio] 38.7 kg/m2 Dr. Keron Maciel Work Phone: [facility] 09-14-2023 15:11-0400 Body temperature 97.3 [degF] Dr. Keron Maciel Work Phone: [facility] 09-14-2023 15:11-0400 Body weight 102.[address] Keron Maciel Work Phone: [facility] 09-14-2023 15:11-0400 Diastolic blood pressure 91 mm[Hg] Dr. Keron Maciel Work Phone: [facility] 09-14-2023 15:11-0400 Heart rate 87 /min Dr. Keron Maciel Work Phone: [facility] 09-14-2023 15:11-0400 Respiratory rate 17 /min Dr. Keron Maciel Work Phone: [facility] 09-14-2023 15:11-0400 SaO2% (BldA) [Mass fraction] 97 % Dr. Keron Maciel Work Phone: [facility] 09-14-2023 15:11-0400 Systolic blood pressure 167 mm[Hg] Dr. Keron Maciel Work Phone: [facility] 08-10-2023 15:48-0500 Body mass index (BMI) [Ratio] 39.4 kg/m2 Dr. Keron Maciel Work Phone: [facility] 08-10-2023 15:48-0500 Body temperature 97.7 [degF] Dr. Keron Maciel Work Phone: [facility] 08-10-2023 15:48-0500 Body weight 104.[address] Keron Maciel Work Phone: [facility] 08-10-2023 15:48-0500 Diastolic blood pressure 84 mm[Hg] Dr. Keron Maciel Work Phone: [facility] 08-10-2023 15:48-0500 Heart rate 78 /min Dr. Keron Maciel Work Phone: [facility] 08-10-2023 15:48-0500 Respiratory rate 14 /min Dr. Keron Maciel Work Phone: [facility] 08-10-2023 15:48-0500 SaO2% (BldA) [Mass fraction] 94 % Dr. Keron Maciel Work Phone: [facility] 08-10-2023 15:48-0500 Systolic blood pressure 128 mm[Hg] Dr. Keron Maciel Work Phone: [facility] 07-27-2023 14:30-0500 Body temperature 97.7 [degF] Dr. Keron Maciel Work Phone: [facility] 07-27-2023 14:30-0500 Body weight 104.[address] Keron Maciel Work Phone: [facility] 07-27-2023 14:30-0500 Diastolic blood pressure 67 mm[Hg] Dr. Keron Maciel Work Phone: [facility] 07-27-2023 14:30-0500 Heart rate 90 /min Dr. Keron Maciel Work Phone: [facility] 07-27-2023 14:30-0500 Respiratory rate 17 /min Dr. Keron Maciel Work Phone: [facility] 07-27-2023 14:30-0500 SaO2% (BldA) [Mass fraction] 97 % Dr. Keron Maciel Work Phone: [facility] 07-27-2023 14:30-0500 Systolic blood pressure 122 mm[Hg] Dr. Keron Maciel Work Phone: [facility] 07-24-2023 14:04-0500 Body mass index (BMI) [Ratio] 39.4 kg/m2 Dr. Keron Maciel Work Phone: [facility] 07-24-2023 14:04-0500 Body temperature 98.7 [degF] Dr. Keron Maciel Work Phone: [facility] 07-24-2023 14:04-0500 Body weight 104.[address] Keron Maciel Work Phone: [facility] 07-24-2023 14:04-0500 Diastolic blood pressure 90 mm[Hg] Dr. Keron Maciel Work Phone: [facility] 07-24-2023 14:04-0500 Heart rate 80 /min Dr. Keron Maciel Work Phone: [facility] 07-24-2023 14:04-0500 Respiratory rate 19 /min Dr. Keron Maciel Work Phone: [facility] 07-24-2023 14:04-0500 SaO2% (BldA) [Mass fraction] 96 % Dr. Keron Maciel Work Phone: [facility] 07-24-2023 14:04-0500 Systolic blood pressure 136 mm[Hg] Dr. Keron Maciel Work Phone: [facility] 07-16-2023 19:32-0500 Body temperature 98.1 [degF] Dr. Keron Maciel Work Phone: [facility] 07-16-2023 19:32-0500 Diastolic blood pressure 84 mm[Hg] Dr. Keron Maciel Work Phone: [facility] 07-16-2023 19:32-0500 Heart rate 82 /min Dr. Keron Maciel Work Phone: [facility] 07-16-2023 19:32-0500 Respiratory rate 16 /min Dr. Keron Maciel Work Phone: [facility] 07-16-2023 19:32-0500 SaO2% (BldA) [Mass fraction] 95 % Dr. Keron Maciel Work Phone: [facility] 07-16-2023 19:32-0500 Systolic blood pressure 146 mm[Hg] Dr. Keron Maciel Work Phone: [facility] 07-16-2023 14:57-0500 Body mass index (BMI) [Ratio] 40.2 kg/m2 Dr. Keron Maciel Work Phone: [facility] 07-16-2023 14:57-0500 Body weight 106.[address] Keron Maciel Work Phone: [facility] 10-18-2022 13:46-0400 Body height 162.[address] Keron Maciel Work Phone: [facility] 10-18-2022 13:46-0400 Body mass index (BMI) [Ratio] 40.5 kg/m2 Dr. Keron Maciel Work Phone: [facility] 10-18-2022 13:46-0400 Body temperature 93 [degF] Dr. Keron Maciel Work Phone: [facility] 10-18-2022 13:46-0400 Body weight 107.[address] Keron Maciel Work Phone: [facility] 10-18-2022 13:46-0400 Diastolic blood pressure 84 mm[Hg] Dr. Keron Maciel Work Phone: [facility] 10-18-2022 13:46-0400 Heart rate 84 /min Dr. Keron Maciel Work Phone: [facility] 10-18-2022 13:46-0400 Respiratory rate 18 /min Dr. Keron Maciel Work Phone: [facility] 10-18-2022 13:46-0400 SaO2% (BldA) [Mass fraction] 94 % Dr. Keron Maciel Work Phone: [facility] 10-18-2022 13:46-0400 Systolic blood pressure 146 mm[Hg] Dr. Keron Maciel Work Phone: [facility] 10-10-2022 20:09-0400 Diastolic blood pressure 70 mm[Hg] Dr. Keron Maciel Work Phone: [facility] 10-10-2022 20:09-0400 Heart rate 86 /min Dr. Keron Maciel Work Phone: [facility] 10-10-2022 20:09-0400 Systolic blood pressure 115 mm[Hg] Dr. Keron Maciel Work Phone: [facility] 10-10-2022 13:01-0400 Body mass index (BMI) [Ratio] 41 kg/m2 Dr. Keron Maciel Work Phone: [facility] 10-10-2022 13:01-0400 Body temperature 98 [degF] Dr. Keron Maciel Work Phone: [facility] 10-10-2022 13:01-0400 Body weight 108.[address] Keron Maciel Work Phone: [facility] 10-10-2022 13:01-0400 Respiratory rate 17 /min Dr. Keron Maciel Work Phone: [facility] 10-10-2022 13:01-0400 SaO2% (BldA) [Mass fraction] 98 % Dr. Keron Maciel Work Phone: [facility] 09-28-2022 14:32-0400 Body temperature 98.8 [degF] Dr. Keron Maciel Work Phone: [facility] 09-28-2022 14:32-0400 Body weight 109.[address] Keron Maciel Work Phone: [facility] 09-28-2022 14:32-0400 Diastolic blood pressure 80 mm[Hg] Dr. Keron Maciel Work Phone: [facility] 09-28-2022 14:32-0400 Heart rate 76 /min Dr. Keron Maciel Work Phone: [facility] 09-28-2022 14:32-0400 Respiratory rate 20 /min Dr. Keron Maciel Work Phone: [facility] 09-28-2022 14:32-0400 SaO2% (BldA) [Mass fraction] 95 % Dr. Keron Maciel Work Phone: [facility] 09-28-2022 14:32-0400 Systolic blood pressure 142 mm[Hg] Dr. Keron Maciel Work Phone: [facility] 09-08-2022 14:03-0400 Body height 162.[address] Keron Maciel Work Phone: [facility] 09-08-2022 14:02-0400 Body mass index (BMI) [Ratio] 41.3 kg/m2 Dr. Keron Maciel Work Phone: [facility] 09-08-2022 14:02-0400 Body weight 109.[address] Keron Maciel Work Phone: [facility] 09-08-2022 14:02-0400 Diastolic blood pressure 71 mm[Hg] Dr. Keron Maciel Work Phone: [facility] 09-08-2022 14:02-0400 Heart rate 76 /min Dr. Keron Maciel Work Phone: [facility] 09-08-2022 14:02-0400 Respiratory rate 22 /min Dr. Keron Maciel Work Phone: [facility] 09-08-2022 14:02-0400 SaO2% (BldA) [Mass fraction] 97 % Dr. Keron Maciel Work Phone: [facility] 09-08-2022 14:02-0400 Systolic blood pressure 118 mm[Hg] Dr. Keron Maciel Work Phone: [facility] 08-03-2022 07:45-0500 Body mass index (BMI) [Ratio] 40.6 kg/m2 Dr. Keron Maciel Work Phone: [facility] 08-03-2022 07:45-0500 Body temperature 97 [degF] Dr. Keron Maciel Work Phone: [facility] 08-03-2022 07:45-0500 Body weight 107.[address] Keron Maciel Work Phone: [facility] 08-03-2022 07:45-0500 Diastolic blood pressure 83 mm[Hg] Dr. Keron Maciel Work Phone: [facility] 08-03-2022 07:45-0500 Heart rate 86 /min Dr. Keron Maciel Work Phone: [facility] 08-03-2022 07:45-0500 Respiratory rate 20 /min Dr. Keron Maciel Work Phone: [facility] 08-03-2022 07:45-0500 SaO2% (BldA) [Mass fraction] 94 % Dr. Keron Maciel Work Phone: [facility] 08-03-2022 07:45-0500 Systolic blood pressure 154 mm[Hg] Dr. Keron Maciel Work Phone: [facility] 02-25-2022 09:02-0400 Body height 162.[address] Keron Maciel Work Phone: [facility] Work Phone: 02-25-2022 09:02-0400 Body mass index (BMI) [Ratio] 41 kg/m2 Dr. Keron Maciel Work Phone: [facility] Work Phone: 02-25-2022 09:02-0400 Body weight 108.[address] Keron Maciel Work Phone: [facility] Work Phone: 02-25-2022 09:02-0400 Diastolic blood pressure 79 mm[Hg] Dr. Keron Maciel Work Phone: [facility] Work Phone: 02-25-2022 09:02-0400 Heart rate 78 /min Dr. Keron Maciel Work Phone: [facility] Work Phone: 02-25-2022 09:02-0400 Respiratory rate 18 /min Dr. Keron Maciel Work Phone: [facility] Work Phone: 02-25-2022 09:02-0400 SaO2% (BldA) [Mass fraction] 98 % Dr. Keron Maciel Work Phone: [facility] Work Phone: 02-25-2022 09:02-0400 Systolic blood pressure 137 mm[Hg] Dr. Keron Maciel Work Phone: [facility] Work Phone: 02-14-2022 13:10-0400 Body height 162.[address] Keron Maciel Work Phone: [facility] Work Phone: 02-14-2022 13:10-0400 Body mass index (BMI) [Ratio] 41.1 kg/m2 Dr. Keron Maciel Work Phone: [facility] Work Phone: 02-14-2022 13:10-0400 Body temperature 98.2 [degF] Dr. Keron Maciel Work Phone: [facility] Work Phone: 02-14-2022 13:10-0400 Body weight 108.[address] Keron Maciel Work Phone: [facility] Work Phone: 02-14-2022 13:10-0400 Diastolic blood pressure 76 mm[Hg] Dr. Keron Maciel Work Phone: [facility] Work Phone: 02-14-2022 13:10-0400 Heart rate 75 /min Dr. Keron Maciel Work Phone: [facility] Work Phone: 02-14-2022 13:10-0400 Respiratory rate 22 /min Dr. Keron Maciel Work Phone: [facility] Work Phone: 02-14-2022 13:10-0400 SaO2% (BldA) [Mass fraction] 98 % Dr. Keron Maciel Work Phone: [facility] Work Phone: 02-14-2022 13:10-0400 Systolic blood pressure 126 mm[Hg] Dr. Keron Maciel Work Phone: [facility] Work Phone: 02-08-2022 13:22-0400 Body temperature 98.2 [degF] Dr. Keron Maciel Work Phone: [facility] Work Phone: 02-08-2022 13:22-0400 Diastolic blood pressure 54 mm[Hg] Dr. Keron Maciel Work Phone: [facility] Work Phone: 02-08-2022 13:22-0400 Heart rate 86 /min Dr. Keron Maciel Work Phone: [facility] Work Phone: 02-08-2022 13:22-0400 Respiratory rate 14 /min Dr. Keron Maciel Work Phone: [facility] Work Phone: 02-08-2022 13:22-0400 SaO2% (BldA) [Mass fraction] 95 % Dr. Keron Maciel Work Phone: [facility] Work Phone: 02-08-2022 13:22-0400 Systolic blood pressure 108 mm[Hg] Dr. Keron Maciel Work Phone: [facility] Work Phone: 02-01-2022 16:28-0400 Diastolic blood pressure 78 mm[Hg] Dr. Keron Maciel Work Phone: [facility] Work Phone: 02-01-2022 16:28-0400 Heart rate 78 /min Dr. Keron Maciel Work Phone: [facility] Work Phone: 02-01-2022 16:28-0400 Respiratory rate 16 /min Dr. Keron Maciel Work Phone: [facility] Work Phone: 02-01-2022 16:28-0400 SaO2% (BldA) [Mass fraction] 98 % Dr. Keron Maciel Work Phone: [facility] Work Phone: 02-01-2022 16:28-0400 Systolic blood pressure 136 mm[Hg] Dr. Keron Maciel Work Phone: [facility] Work Phone: 02-01-2022 13:24-0400 Body height 162.[address] Keron Maciel Work Phone: [facility] Work Phone: 02-01-2022 13:24-0400 Body mass index (BMI) [Ratio] 40.8 kg/m2 Dr. Keron Maciel Work Phone: [facility] Work Phone: 02-01-2022 13:24-0400 Body temperature 97.8 [degF] Dr. Keron Maciel Work Phone: [facility] Work Phone: 02-01-2022 13:24-0400 Body weight 107.[address] Keron Maciel Work Phone: [facility] Work Phone: 10-29-2021 07:13-0400 Body height 162.[address] Keron Maciel Work Phone: [facility] Work Phone: 10-29-2021 07:13-0400 Body weight 108.[address] Keron Maciel Work Phone: [facility] Work Phone: 10-28-2021 08:17-0400 Body mass index (BMI) [Ratio] 41.1 kg/m2 Dr. Keron Maciel Work Phone: [facility] Work Phone: 10-26-2021 08:19-0400 Body weight 108.[address] Keron Maciel Work Phone: [facility] Work Phone: 10-26-2021 08:19-0400 Diastolic blood pressure 72 mm[Hg] Dr. Keron Maciel Work Phone: [facility] Work Phone: 10-26-2021 08:19-0400 Heart rate 77 /min Dr. Keron Maciel Work Phone: [facility] Work Phone: 10-26-2021 08:19-0400 Respiratory rate 22 /min Dr. Keron Maciel Work Phone: [facility] Work Phone: 10-26-2021 08:19-0400 SaO2% (BldA) [Mass fraction] 96 % Dr. Keron Maciel Work Phone: [facility] Work Phone: 10-26-2021 08:19-0400 Systolic blood pressure 108 mm[Hg] Dr. Keron Maciel Work Phone: [facility] Work Phone: 10-26-2021 08:19-0400 Body weight 108.[address] Keron Macile Work Phone: [facility] Work Phone: 10-26-2021 08:19-0400 Diastolic blood pressure 72 mm[Hg] Dr. Keron Maciel Work Phone: [facility] Work Phone: 10-26-2021 08:19-0400 Heart rate 77 /min Dr. Keron Maciel Work Phone: [facility] Work Phone: 10-26-2021 08:19-0400 Respiratory rate 22 /min Dr. Keron Maciel Work Phone: [facility] Work Phone: 10-26-2021 08:19-0400 SaO2% (BldA) [Mass fraction] 96 % Dr. Keron Maciel Work Phone: [facility] Work Phone: 10-26-2021 08:19-0400 Systolic blood pressure 108 mm[Hg] Dr. Keron Maciel Work Phone: [facility] Work Phone: 10-13-2021 13:03-0400 Body mass index (BMI) [Ratio] 40.8 kg/m2 Dr. Keron Maciel Work Phone: [facility] Work Phone: 10-13-2021 13:03-0400 Body temperature 96.9 [degF] Dr. Keron Maciel Work Phone: [facility] Work Phone: 10-13-2021 13:03-0400 Body weight 108.[address] Keron Maciel Work Phone: [facility] Work Phone: 10-13-2021 13:03-0400 Diastolic blood pressure 70 mm[Hg] Dr. Keron Maciel Work Phone: [facility] Work Phone: 10-13-2021 13:03-0400 Heart rate 95 /min Dr. Keron Maciel Work Phone: [facility] Work Phone: 10-13-2021 13:03-0400 Respiratory rate 16 /min Dr. Keron Maciel Work Phone: [facility] Work Phone: 10-13-2021 13:03-0400 SaO2% (BldA) [Mass fraction] 95 % Dr. Keron Maciel Work Phone: [facility] Work Phone: 10-13-2021 13:03-0400 Systolic blood pressure 130 mm[Hg] Dr. Keron Maciel Work Phone: [facility] Work Phone: 10-13-2021 13:03-0400 Body height 162.[address] Keron Maciel Work Phone: [facility] Work Phone: 10-13-2021 13:03-0400 Body mass index (BMI) [Ratio] 40.8 kg/m2 Dr. Keron Maciel Work Phone: [facility] Work Phone: 10-13-2021 13:03-0400 Body temperature 96.9 [degF] Dr. Keron Maciel Work Phone: [facility] Work Phone: 10-13-2021 13:03-0400 Body weight 108.[address] Keron Maciel Work Phone: [facility] Work Phone: 10-13-2021 13:03-0400 Diastolic blood pressure 70 mm[Hg] Dr. Keron Maciel Work Phone: [facility] Work Phone: 10-13-2021 13:03-0400 Heart rate 95 /min Dr. Keron Maciel Work Phone: [facility] Work Phone: 10-13-2021 13:03-0400 Respiratory rate 16 /min Dr. Keron Maciel Work Phone: [facility] Work Phone: 10-13-2021 13:03-0400 SaO2% (BldA) [Mass fraction] 95 % Dr. Keron Maciel Work Phone: [facility] Work Phone: 10-13-2021 13:03-0400 Systolic blood pressure 130 mm[Hg] Dr. Keron Maciel Work Phone: [facility] Work Phone: 10-11-2021 13:12-0400 Body mass index (BMI) [Ratio] 40.8 kg/m2 Dr. Keron Maciel Work Phone: [facility] Work Phone: 10-11-2021 13:12-0400 Body weight 108.[address] Keron Maciel Work Phone: [facility] Work Phone: 10-11-2021 13:12-0400 Diastolic blood pressure 68 mm[Hg] Dr. Keron Maciel Work Phone: [facility] Work Phone: 10-11-2021 13:12-0400 Heart rate 80 /min Dr. Keron Maciel Work Phone: [facility] Work Phone: 10-11-2021 13:12-0400 Respiratory rate 17 /min Dr. Keron Maciel Work Phone: [facility] Work Phone: 10-11-2021 13:12-0400 SaO2% (BldA) [Mass fraction] 96 % Dr. Keron Maciel Work Phone: [facility] Work Phone: 10-11-2021 13:12-0400 Systolic blood pressure 114 mm[Hg] Dr. Keron Maciel Work Phone: [facility] Work Phone: 10-11-2021 13:12-0400 Body mass index (BMI) [Ratio] 40.8 kg/m2 Dr. Keron Maciel Work Phone: [facility] Work Phone: 10-11-2021 13:12-0400 Body weight 108.[address] Keron Maciel Work Phone: [facility] Work Phone: 10-11-2021 13:12-0400 Diastolic blood pressure 68 mm[Hg] Dr. Keron Maciel Work Phone: [facility] Work Phone: 10-11-2021 13:12-0400 Heart rate 80 /min Dr. Keron Maciel Work Phone: [facility] Work Phone: 10-11-2021 13:12-0400 Respiratory rate 17 /min Dr. Keron Maciel Work Phone: [facility] Work Phone: 10-11-2021 13:12-0400 SaO2% (BldA) [Mass fraction] 96 % Dr. Keron Maciel Work Phone: [facility] Work Phone: 10-11-2021 13:12-0400 Systolic blood pressure 114 mm[Hg] Dr. Keron Maciel Work Phone: [facility] Work Phone: 09-07-2021 13:29-0400 Body mass index (BMI) [Ratio] 40.6 kg/m2 Dr. Keron Maciel Work Phone: [facility] Work Phone: 09-07-2021 13:29-0400 Body temperature 96.3 [degF] Dr. Keron Maciel Work Phone: [facility] Work Phone: 09-07-2021 13:29-0400 Body weight 107.[address] Keron Maciel Work Phone: [facility] Work Phone: 09-07-2021 13:29-0400 Diastolic blood pressure 80 mm[Hg] Dr. Keron Maciel Work Phone: [facility] Work Phone: 09-07-2021 13:29-0400 Heart rate 87 /min Dr. Keron Maciel Work Phone: [facility] Work Phone: 09-07-2021 13:29-0400 Respiratory rate 20 /min Dr. Keron Maciel Work Phone: [facility] Work Phone: 09-07-2021 13:29-0400 SaO2% (BldA) [Mass fraction] 97 % Dr. Keron Maciel Work Phone: [facility] Work Phone: 09-07-2021 13:29-0400 Systolic blood pressure 140 mm[Hg] Dr. Keron Maciel Work Phone: [facility] Work Phone: 08-05-2021 05:23-0500 Body temperature 97.2 [degF] Dr. Keron Maciel Work Phone: [facility] Work Phone: 08-05-2021 05:23-0500 Body weight 106.[address] Keron Maciel Work Phone: [facility] Work Phone: 08-05-2021 05:23-0500 Diastolic blood pressure 81 mm[Hg] Dr. Keron Maciel Work Phone: [facility] Work Phone: 08-05-2021 05:23-0500 Heart rate 86 /min Dr. Keron Maciel Work Phone: [facility] Work Phone: 08-05-2021 05:23-0500 Respiratory rate 18 /min Dr. Keron Maciel Work Phone: [facility] Work Phone: 08-05-2021 05:23-0500 SaO2% (BldA) [Mass fraction] 97 % Dr. Keron Maciel Work Phone: [facility] Work Phone: 08-05-2021 05:23-0500 Systolic blood pressure 145 mm[Hg] Dr. Keron Maciel Work Phone: [facility] Work Phone: 07-13-2021 09:20-0500 Diastolic blood pressure 68 mm[Hg] Dr. Keron Maciel Work Phone: [facility] Work Phone: 07-13-2021 09:20-0500 Heart rate 87 /min Dr. Keron Maciel Work Phone: [facility] Work Phone: 07-13-2021 09:20-0500 SaO2% (BldA) [Mass fraction] 98 % Dr. Keron Maciel Work Phone: [facility] Work Phone: 07-13-2021 09:20-0500 Systolic blood pressure 120 mm[Hg] Dr. Keron Maciel Work Phone: [facility] Work Phone: 01-18-2021 13:35-0400 Body mass index (BMI) [Ratio] 40.6 kg/m2 Dr. Keron Maciel Work Phone: [facility] Work Phone: 01-18-2021 13:35-0400 Body mass index (BMI) [Ratio] 40.6 kg/m2 Dr. Keron Maciel Work Phone: [facility] Work Phone: 07-22-2020 09:45-0500 Body mass index (BMI) [Ratio] 40.8 kg/m2 Dr. Keron Maciel Work Phone: [facility] Work Phone: 05-09-2017 08:43-0500 BMI (Body Mass Index) 41.78 kg/m2 Saurabh Benites MD [facility] Work Phone: 05-09-2017 08:43-0500 Body Temperature 97.8 [degF] Saurabh Benites MD [facility] Work Phone: 05-09-2017 08:43-0500 BP Diastolic 83 mm[Hg] Saurabh Benites MD [facility] Work Phone: 05-09-2017 08:43-0500 BP Systolic 148 mm[Hg] Saurabh Benites MD [facility] Work Phone: 05-09-2017 08:43-0500 Height 160.02 cm Saurabh Benites MD [facility] Work Phone: 05-09-2017 08:43-0500 Pulse (Heart Rate) 74 /min Saurabh Benites MD [facility] Work Phone: 05-09-2017 08:43-0500 Respiratory Rate 20 /min Saurabh Benites MD [facility] Work Phone: 05-09-2017 08:43-0500 Weight 107 kg Saurabh Benites MD [facility] Work Phone: 05-31-2016 10:22-0500 Body Temperature 97.34 [degF] Saurabh Benites MD [facility] Work Phone: 05-31-2016 10:22-0500 BSA (Body Surface Area) 2.06 m2 Saurabh Benites MD [facility] Work Phone: 05-31-2016 10:22-0500 Height 160.02 cm Saurabh Benites MD [facility] Work Phone: 05-31-2016 10:22-0500 Weight 105.45 kg Saurabh Benites MD [facility] Work Phone: 03-08-2016 14:31-0400 Pulse Oximetry 97 % Saurabh Benites MD [facility] Work Phone: Encounters Encounter Date Encounter Type Care Provider Facility Start: 01-06-2025 End: 01-06-2025 ambulatory Keron Maciel Facility:[facility] Start: 01-06-2025 End: 01-06-2025 Dr. Keron Maciel MD -[facility] Work Phone: Start: 01-02-2025 Dr. Patti Steinberg MD -[facility] Start: 01-02-2025 ambulatory Patti Steinberg Facility:[facility] Start: 12-31-2024 End: 12-31-2024 Dr. Keron Maciel MD Work Phone: -Emergency Department Work Phone: Start: 12-31-2024 End: 12-31-2024 Emergency department patient visit Dr. Keron Maciel MD Work Phone: -Emergency Department Start: 12-30-2024 End: 12-30-2024 Dr. Keron Maciel MD -[facility] Work Phone: Start: 12-30-2024 End: 12-30-[address] Keron Maciel MD Work Phone: -[facility] Start: 12-23-2024 End: 12-23-2024 Patient encounter procedure Zhen Simons [employer] -[facility] Work Phone: Start: 12-23-2024 End: 12-23-2024 Zhen Simons [employer] -[facility] Work Phone: Start: 12-23-2024 End: 12-23-[address] Keron Maciel MD Work Phone: -[facility] Start: 12-21-2024 End: 12-21-2024 Dr. Derick Sorenson DO -[facility] Work Phone: Start: 12-21-2024 End: 12-21-2024 Emergency [...] Start: 12-13-2024 End: 12-13-2024 ambulatory BARBIE NOVA Facility:[facility] Start: 12-09-2024 End: 12-09-[address] Keron Maciel MD Work Phone: -Radiology [facility] Start: 12-09-2024 End: 12-09-[address] Keron Maciel MD -Radiology [facility] Work Phone: Start: 12-09-2024 End: 12-09-2024 Dr. Keron Maciel MD -Radiology [facility] Work Phone: Start: 12-09-2024 End: 12-09-[address] Keron Maciel MD -[facility] Work Phone: Start: 12-09-2024 End: 12-09-2024 Dr. Keron Maciel MD -[facility] Work Phone: Start: 12-09-2024 End: 12-09-[address] Keron Maciel MD Work Phone: [facility] Work Phone: Start: 12-09-2024 End: 12-09-2024 ambulatory Keron Maciel Facility:[facility] Start: 11-25-2024 End: 11-25-[address] Keron Maciel MD Work Phone: [facility] Work Phone: Start: 11-25-2024 End: 11-25-[address] Keron Maciel MD -[facility] Work Phone: Start: 11-25-2024 End: 11-25-2024 Dr. Keron Maciel MD -[facility] Work Phone: Start: 11-25-2024 End: 11-25-[address] Keron Maciel MD -[facility] Work Phone: Start: 11-25-2024 End: 11-25-2024 Dr. Keron Maciel MD -[facility] Work Phone: Start: 11-25-2024 End: 11-25-[address] Keron Maciel MD Work Phone: [facility] Work Phone: Start: 11-25-2024 End: 11-25-2024 ambulatory Keron Maciel Facility:[facility] Start: 11-19-2024 End: 11-20-[facility] Work [facility]: Start: 11-19-2024 End: 11-20-2024 Emergency department patient visit Helio Corrales -Emergency Department Work Phone: Start: 09-06-2024 End: 09-06-2024 ambulatory BARBIE NOVA Facility:[facility] Start: 09-06-2024 End: 09-06-2024 Patient encounter procedure Barbie Nova Work Phone: Podiatry Comment on above: Onychomycosis (Prima ry Dx); Pain in toe of left foot; Pain in toe of right foot; Diabetic polyneuropathy associated with type 2 diabetes mellitus (HCC); Venous insufficiency Start: 08-01-2024 End: 08-01-[address] Rich Padgett MD -[facility] Work Phone: Start: 08-01-2024 End: 08-01-2024 ambulatory Keron Maciel Facility:[facility] Start: 07-25-2024 End: 07-25-[address] Keron Maciel MD -[facility] Work Phone: Start: 07-25-2024 End: 07-25-2024 ambulatory Keron Maciel Facility:[facility] Start: 06-24-2024 End: 06-24-2024 ambulatory Keron Maciel Facility:[facility] Start: 06-24-2024 End: 06-24-2024 ambulatory Joan Serna Facility:[facility] Start: 06-15-2024 ambulatory David Ashton Facility:[facility] Start: 06-15-2024 End: 06-16-2024 ambulatory Amalia Moncada Facility:[facility] Start: 06-06-2024 End: 06-06-2024 ambulatory BARBIE NOVA Facility:[facility] Start: 06-06-2024 End: 06-06-2024 Patient encounter procedure Barbie Nova Work Phone: Podiatry Comment on above: Onychomycosis (Prima ry Dx); Pain in toe of left foot; Pain in toe of right foot; Diabetic polyneuropathy associated with type 2 diabetes mellitus ([facility]) Start: 05-20-2024 End: 05-20-2024 ambulatory [facility] Facility:[facility] Start: 05-09-2024 End: 05-09-2024 ambulatory [facility] Facility:[facility] Start: 04-22-2024 End: 04-22-2024 ambulatory [facility] Facility:[facility] Start: 03-28-2024 End: 03-28-2024 ambulatory [facility] Facility:[facility] Start: 03-27-2024 End: 03-27-2024 ambulatory Keron Janell Facility:[facility] Start: 03-14-2024 End: 03-14-2024 ambulatory Keron Janell Facility:[facility] Start: 03-07-2024 End: 03-07-2024 ambulatory Keron Janell Facility:[facility] Start: 02-29-2024 End: 02-29-2024 ambulatory BARBIE NOVA Facility:[facility] Start: 02-29-2024 End: 02-29-2024 Patient encounter procedure Barbie Nova Work Phone: Podiatry Comment on above: Onychomycosis (Prima ry Dx); Pain in toe of left foot; Pain in toe of right foot; Diabetic polyneuropathy associated with type 2 diabetes mellitus ([facility]) Start: 02-26-2024 End: 02-26-2024 [facility] Start: 01-18-2024 End: 01-18-2024 ambulatory [facility] Facility:[facility] Start: 01-10-2024 End: 01-10-2024 ambulatory Geo Saeed Facility:[facility] Start: 11-16-2023 End: 11-16-2023 Patient encounter procedure Barbie Nova Work Phone: Podiatry Comment on above: Onychomycosis (Prima ry Dx); Pain in toe of left foot; Pain in toe of right foot; Diabetic polyneuropathy associated with type 2 diabetes mellitus (HCC) Start: 09-22-2023 End: 09-22-[address] Keron Maciel Work Phone: [facility] Work Phone: Start: 09-22-2023 End: 09-22-[address] Keron Maciel Work Phone: [facility]-Laboratory Work Phone: Start: 09-14-2023 End: 09-14-[address] Keron Maciel Work Phone: [facility] Work Phone: Start: 08-10-2023 End: 08-10-[address] 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 Keron Maciel Work Phone: [facility] Work Phone: Start: 07-24-2023 End: 07-24-[address] Keron Maciel Work Phone: [facility] Work Phone: Start: 07-16-2023 End: 07-16-2023 Emergency department patient visit Dr. Keron Maciel Work Phone: [facility]-Emergency Department Work Phone: Start: 12-09-2022 End: 12-09-[address] Keron Maciel Work Phone: [facility] Work Phone: Start: 12-09-2022 End: 12-09-[address] Keron Maciel Work Phone: [facility]-Physical Therapy Start: 10-18-2022 End: 10-18-[address] Keron Maciel Work Phone: [facility] Start: 10-10-2022 End: 10-10-[address] Keron Maciel Work Phone: [facility] Start: 10-05-2022 End: 10-05-[address] Keron Maciel Work Phone: [facility]-Radiology, [facility] Start: 09-28-2022 End: 09-28-[address] Keron Maciel Work Phone: [facility] Work Phone: Start: 09-28-2022 End: 09-28-[address] Keron Maciel Work Phone: [facility]-Laboratory Start: 09-28-2022 End: 09-28-[address] Keron Maciel Work Phone: [facility] Start: 09-08-2022 End: 09-08-[address] Keron Maciel Work Phone: [facility] Start: 09-07-2022 End: 09-07-[address] Keron Maciel Work Phone: [facility] Work Phone: Start: 09-07-2022 End: 09-07-[address] Keron Maciel Work Phone: [facility]-Radiology, [facility] Start: 08-03-2022 End: 08-03-[address] Keron Maciel Work Phone: [facility]-Pulmonary Medicine [facility] Start: 03-03-2022 End: 03-03-[address] Keron Maciel Work Phone: [facility] Work Phone: Start: 03-03-2022 End: 03-03-[address] [facility] Start: 02-25-2022 End: 02-25-[address] Keron Maciel Work Phone: [facility] Start: 02-17-2022 Non-patient / Non-visit Dr. Madeleine Maciel Work Phone: [facility] Start: 02-16-2022 End: 02-16-[address] Keron Maciel Work Phone: [facility] Work Phone: Start: 02-16-2022 End: 02-16-[address] [facility] Start: 02-14-2022 End: 02-14-[address] Keron Maciel Work Phone: [facility] Internal Medicine Start: 02-08-2022 End: 02-08-[address] Keron Maciel Work Phone: [facility] Internal Medicine Start: 02-01-2022 End: 02-01-2022 Emergency department patient visit Dr. Keron Maciel Work Phone: [facility]-Emergency Department Start: 10-29-2021 End: 10-29-2021 Admission to same day surgery center Dr. Keron Maciel Work Phone: [facility]-Director Veterinary/Special Procedures Start: 10-26-2021 End: 10-26-[address] Keron Maciel Work Phone: [facility] Start: 10-13-2021 End: 10-13-[address] Keron Maciel Work Phone: [facility]-Laboratory, [facility] Start: 10-13-2021 End: 10-13-[address] Keron Maciel Work Phone: [facility] Internal Medicine Start: 10-11-2021 End: 10-11-[address] Keron Maciel Work Phone: [facility] Neurology Start: 09-07-2021 End: 09-07-[address] Keron Maciel Work Phone: [facility] Endocrinology Start: 08-05-2021 End: 08-05-[address] Keron Maciel Work Phone: [facility]-Pulmonary Medicine [facility] Start: 07-13-2021 End: 07-13-[address] Keron Maciel Work Phone: [facility] Neurology Start: 06-22-2021 End: 06-22-[address] Keron Maciel Work Phone: [facility]-Laboratory Procedures Date Procedure Procedure Detail Performing [...] a & RSV (PCR) Dr. Keron Maciel MD Work Phone: Start: 11-19-2024 Urine culture [...] PA-C Work Phone: Start: 09-06-2016 End: 09-06-2016 DIRECTOR OF ANESTHESIA SERVICES Audelia Espinoza PA-C Work Phone: Start: 09-06-2016 End: 09-06-2016 Follow Up Appt 6 months Audelia Espinoza PA-C Work Phone: Start: 09-06-2016 End: 09-06-2016 Follow Up Appt Other Audelia Espinoza PA-C Work Phone: Start: 08-22-2016 End: 09-07-2016 DMB Lela Sherman [employer] Work Phone: Start: 08-22-2016 End: 09-07-2016 Echo tthrc r-t 2d w/wom-mode compl spec&colr d Lela Sherman [employer] Work Phone: Start: 08-22-2016 End: 09-07-2016 Follow Up Appt 3 months Lela fonseca [employer] Work Phone: Start: 08-22-2016 End: 08-23-2016 Natriuretic peptide B [Mass/volume] in Blood Lela Sherman [employer] Work Phone: Start: 06-08-2016 End: 08-18-2016 *MISC [...] of coronary artery stent placement Zhen Simons [employer] Comment on above: RUDDY to Prox-Mid LAD [...] David Ashton MD Start: 12-04-2014 End: 12-04-2014 DIRECTOR OF ANESTHESIA SERVICES Audelia Espinoza PA-C Work Phone: Start: 12-04-2014 End: 12-05-2014 Documentation of current medications Audelia Espinoza PA-C Work Phone: Start: 12-04-2014 End: 12-04-2014 Ecg routine ecg w/least 12 lds w/i&r Audelia Espinoza PA-C Work Phone: Start: 12-04-2014 End: 12-04-2014 Follow Up Appt 6 months Audelia Espinoza PA-C Work Phone: Start: 12-04-2014 End: 06-25-2015 [facility] Work Phone: Start: 05-29-2014 End: 06-30-2014 24 hour holter monitor David Ahston MD Start: 05-29-2014 End: 05-29-2014 Follow Up Appt 6 months Libia Liu Start: 05-29-2014 End: 05-29-2014 [facility] David Ashton MD Start: 12-31-2013 End: [...] DTaP,Tdap,Td Vaccine (4 - Td or Tdap) [facility] Start: 02-02-2032 Urine microalbumin profile DTaP,Tdap,Td Vaccine (3 - Td or Tdap) [facility] Start: 03-21-2025 End: 03-21-2025 Patient encounter procedure 03/21/2025 1:40 PM EDT Office Visit Podiatry [address] [place] [address] Barbie Nova [address] [place] [address] 3 month follow up nail care Podiatry Comment on above: 3 month follow up nail care Start: 02-17-2025 Influenza vaccination Influenza Vaccine (Season Ended) [facility] Start: 12-31-2024 [facility] Start: 12-23-2024 Evaluation of diagnostic study results [facility] Start: 12-21-2024 [facility] Start: 12-21-2024 [facility] Start: 12-06-2024 End: 12-06-2024 Patient encounter procedure 12/06/2024 3:40 PM EDT Office Visit Podiatry [address] [place] [address] Barbie Nova [address] [place] [address] 3 mo f/u Podiatry Comment on above: 3 mo f/u Start: 11-25-2024 Basic metabolic 2008 panel with ionized calcium - Serum or Plasma [facility] Start: 11-25-2024 CBC W Auto Differential panel - Blood [facility] Start: 11-25-2024 Natriuretic peptide.B prohormone N-Terminal [Mass/volume] in Serum or Plasma [facility] Start: 11-25-2024 Evaluation of diagnostic study results [facility] Start: 11-20-2024 End: 11-20-2024 [facility] Start: 11-19-2024 Bacteria identified in Urine by Culture Urine Culture [facility] Start: 09-06-2024 End: 09-06-2024 Patient encounter procedure 09/06/2024 1:20 PM EDT Office Visit Podiatry [address] [place] [address] Barbie Nova [address] [address] 3 month follow up nail care Podiatry Comment on above: 3 month follow up nail care Start: 06-19-2024 Advance Directive Discussion Advance Directive Discussion [facility] Start: 06-19-2024 Medicare Advantage Annual Wellness Visit Medicare Advantage Annual Wellness Visit [facility] Start: 02-23-2024 End: 02-23-2024 Patient encounter procedure 02/23/2024 2:00 PM EDT Office Visit Podiatry [address] [place] [address] Barbie Nova [address] [place] [address] 3 month follow up nail care Podiatry Comment on above: 3 month follow up nail care Start: 02-18-2024 Covid-19 Vaccine ( season) Covid-19 Vaccine () [facility] Start: 02-18-2024 Covid-19 Vaccine () Covid-19 Vaccine () [facility] Start: 02-18-2024 Influenza vaccination [facility] Start: 07-16-2023 [facility] Start: 07-16-2023 [facility] Start: 06-19-2023 Advance Directive Discussion Advance Directive Discussion [facility] Start: 06-19-2023 Behavioral Health Screening Behavioral Health Screening [facility] Start: 06-19-2023 Depression Assessment Depression Assessment [facility] Start: 02-17-2023 Covid-19 Vaccine () Covid-19 Vaccine () [facility] Start: 02-17-2023 Influenza vaccination Influenza Vaccine (#1) [facility] Start: 10-10-2022 Patient referral [facility] Work Phone: Start: 02-01-2022 Simple repair f/e/e/n/l/m 2.6cm-5.0 cm RPR F/E/E/N/L/M 2.6-5.0 CM [facility] Work Phone: Start: 09-17-2021 Diabetic foot examination Diabetic Foot Exam [facility] Start: 09-14-2021 Hepatitis B surface antibody level LDL Cholesterol [facility] Start: 04-07-2021 Glaucoma screening Dilated Retinal Exam [facility] Start: 03-30-2021 Hemoglobin A1c measurement HbA1C [facility] Start: 01-19-2021 Hepatitis B screening Urine Albumin:Creatinine Ratio [facility] Start: 09-06-2017 End: 09-06-2017 Appointment Appointment [facility] Work Phone: Start: 05-22-2017 End: 05-22-2017 Appointment Appointment [facility] Work Phone: Start: 05-09-2017 End: 05-09-2017 Hepatobiliary imaging NM HIDA Scan with EF [facility] Work Phone: Start: 05-09-2017 End: 05-09-2017 Us abdominal real time w/image documentation US Abdomen, RUQ [facility] Work Phone: Start: 05-09-2017 End: 05-09-2017 Appointment Appointment [facility] Work Phone: Start: 03-09-2017 End: 03-09-2017 Follow Up Appt 6 months Follow Up Appt 6 months [facility] Work Phone: Start: 03-09-2017 End: 03-09-2017 MMM MMM [facility] Work Phone: Start: 01-20-2017 End: 01-20-2017 *BMP *BMP [facility] Work Phone: Start: 01-20-2017 End: 01-20-2017 *CBC with Differential *CBC with Differential [facility] Work Phone: Start: 01-20-2017 End: 01-20-2017 BNP *Brain Natriuretic Peptide BNP [facility] Work Phone: Start: 01-20-2017 End: 01-20-2017 Chest x-ray X-Ray, Chest, PA & Lateral [facility] Work Phone: Start: 01-20-2017 End: 01-20-2017 Follow Up Appt Other Follow Up Appt Other [facility] Work Phone: Start: 11-28-2016 End: 11-28-2016 DMB DMB [facility] Work Phone: Start: 11-28-2016 End: 11-28-2016 Follow Up Appt 1 year Follow Up Appt 1 year [facility] Work Phone: Start: 09-06-2016 End: 09-06-2016 DIRECTOR OF ANESTHESIA SERVICES DIRECTOR OF ANESTHESIA SERVICES [facility] Work Phone: Start: 09-06-2016 End: 09-06-2016 Follow Up Appt 6 months Follow Up Appt 6 months [facility] Work Phone: Start: 09-06-2016 End: 09-06-2016 Follow Up Appt Other Follow Up Appt Other [facility] Work Phone: Start: 08-22-2016 End: 08-23-2016 BNP *Brain Natriuretic Peptide BNP [facility] Work Phone: Start: 08-22-2016 End: 09-07-2016 DMB DMB [facility] Work Phone: Start: 08-22-2016 End: 09-07-2016 Echo tthrc r-t 2d w/wom-mode compl spec&colr d Echo Complete with Color Flow [facility] Work Phone: Start: 08-22-2016 End: 09-07-2016 Follow Up Appt 3 months Follow Up Appt 3 months [facility] Work Phone: Start: 06-08-2016 End: 08-18-2016 *MISC - Miscellaneous Lab Test #1 *MISC - Miscellaneous Lab Test #1 [facility] Work Phone: Start: 05-31-2016 End: 05-31-2016 DMB DMB [facility] Work Phone: Start: 05-31-2016 End: 05-31-2016 Follow Up Appt 4 months Follow Up Appt 4 months [facility] Work Phone: Start: 05-20-2016 End: 05-20-2016 Follow Up Appt 6 months Follow Up Appt 6 months [facility] Work Phone: Start: 05-20-2016 End: 05-20-2016 MMM MMM [facility] Work Phone: Start: 04-20-2016 End: 10-20-2015 *Hepatic Function Panel *Hepatic Function Panel [facility] Work Phone: Start: 04-20-2016 End: 10-20-2015 Lipid panel [AGGREGATE] *Lipid Profile CC PCP [facility] Work Phone: Start: 03-21-2016 End: 03-21-2016 *CBC with Differential *CBC with Differential [facility] Work Phone: Start: 03-21-2016 End: 04-29-2016 Assay of ferritin Ferritin [facility] Work Phone: Start: 03-21-2016 End: 03-21-2016 DMB DMB [facility] Work Phone: Start: 03-21-2016 End: 03-21-2016 Follow Up Appt 6 weeks Follow Up Appt 6 weeks [facility] Work Phone: Start: 03-21-2016 End: 03-21-2016 Iron and Iron binding capacity panel - Serum or Plasma *IBC Iron & Total Iron Binding Capacity [facility] Work Phone: Start: 03-21-2016 End: 03-21-2016 Reticulocytes/100 erythrocytes *Reticulocyte Count [facility] Work Phone: Start: 03-14-2016 End: 03-14-2016 Left Heart Cath Left Heart Cath [facility] Work Phone: Start: 03-09-2016 End: 03-09-2016 CBC W Auto Differential panel - Blood *CBC without Diff [facility] Work Phone: Start: 03-08-2016 End: 03-09-2016 *BMP *BMP [facility] Work Phone: Start: 03-08-2016 End: 03-09-2016 BNP *Brain Natriuretic Peptide BNP [facility] Work Phone: Start: 03-08-2016 End: 03-09-2016 Ct angiography chest w/contrast/noncontrast CTA Chest, with contrast material(s) [facility] Work Phone: Start: 03-08-2016 End: 03-08-2016 Ecg routine ecg w/least 12 lds w/i&r EKG (In office) [facility] Work Phone: Start: 03-08-2016 End: 03-08-2016 Follow Up Appt 6 weeks Follow Up Appt 6 weeks [facility] Work Phone: Start: 03-08-2016 End: 03-08-2016 MMM MMM [facility] Work Phone: Start: 02-08-2016 End: 04-29-2016 DMB DMB [facility] Work Phone: Start: 02-08-2016 End: 04-29-2016 Follow Up Appt 6 weeks Follow Up Appt 6 weeks [facility] Work Phone: Start: 02-08-2016 End: 03-18-2016 Pulmonary Function Test - complete Pulmonary Function Test - complete [facility] Work Phone: Start: 10-15-2015 End: 10-19-2015 *Hepatic Function Panel *Hepatic Function Panel [facility] Work Phone: Start: 10-15-2015 End: 10-15-2015 Follow Up Appt 6 months Follow Up Appt 6 months [facility] Work Phone: Start: 10-15-2015 End: 10-19-2015 Lipid panel [AGGREGATE] *Lipid Profile CC PCP [facility] Work Phone: Start: 10-15-2015 End: 10-15-2015 MMM MMM [facility] Work Phone: Start: 08-27-2015 End: 08-27-2015 Follow Up Appt 6 weeks Follow Up Appt 6 weeks [facility] Work Phone: Start: 08-27-2015 End: 08-27-2015 MMM MMM [facility] Work Phone: Start: 08-06-2015 End: 08-06-2015 *BMP *BMP [facility] Work Phone: Start: 08-06-2015 End: 08-06-2015 BNP *Brain Natriuretic Peptide BNP [facility] Work Phone: Start: 08-06-2015 End: 08-06-2015 CBC W Auto Differential panel - Blood *CBC without Diff [facility] Work Phone: Start: 08-06-2015 End: 08-06-2015 Follow up Appt 3 weeks Follow up Appt 3 weeks [facility] Work Phone: Start: 08-06-2015 End: 08-06-2015 MMM MMM [facility] Work Phone: Start: 07-16-2015 End: 08-27-2015 Cardiac Rehab Cardiac Rehab [facility] Work Phone: Start: 07-16-2015 End: 07-16-2015 Ecg routine ecg w/least 12 lds w/i&r EKG (In office) [facility] Work Phone: Start: 07-16-2015 End: 07-16-2015 Follow Up Appt 6 weeks Follow Up Appt 6 weeks [facility] Work Phone: Start: 07-16-2015 End: 07-16-2015 MMM MMM [facility] Work Phone: Start: 06-16-2015 End: 06-17-2015 BNP *Brain Natriuretic Peptide BNP [facility] Work Phone: Start: 06-16-2015 End: 06-16-2015 Ecg routine ecg w/least 12 lds w/i&r EKG (In office) [facility] Work Phone: Start: 06-16-2015 End: 06-16-2015 Echocardiography Echocardiogram (complete) [facility] Work Phone: Start: 06-16-2015 End: 07-16-2015 Follow Up Appt 6 months Follow Up Appt 6 months [facility] Work Phone: Start: 06-16-2015 End: 07-16-2015 MMM MMM [facility] Work Phone: Start: 12-04-2014 End: 12-04-2014 DIRECTOR OF ANESTHESIA SERVICES DIRECTOR OF ANESTHESIA SERVICES [facility] Work Phone: Start: 12-04-2014 End: 12-04-2014 Ecg routine ecg w/least 12 lds w/i&r EKG (In office) [facility] Work Phone: Start: 12-04-2014 End: 12-04-2014 Follow Up Appt 6 months Follow Up Appt 6 months [facility] Work Phone: Start: 12-04-2014 End: 12-04-2014 Nuclear stress test -Lexiscan Nuclear stress test -Lexiscan [facility] Work Phone: Start: 05-29-2014 End: 05-29-2014 24 hour holter monitor 24 hour holter monitor [facility] Work Phone: Start: 05-29-2014 End: 05-29-2014 Follow Up Appt 6 months Follow Up Appt 6 months [facility] Work Phone: Start: 05-29-2014 End: 05-29-2014 MMM MMM [facility] Work Phone: Start: 12-31-2013 End: 12-31-2013 DIRECTOR OF ANESTHESIA SERVICES DIRECTOR OF ANESTHESIA SERVICES [facility] Work Phone: Start: 12-31-2013 End: 12-31-2013 Follow Up Appt 6 months Follow Up Appt 6 months [facility] Work Phone: Start: 06-25-2013 End: 06-25-2013 Ecg routine ecg w/least 12 lds w/i&r EKG (In office) [facility] Work Phone: Start: 06-25-2013 End: 06-25-2013 Follow Up Appt 6 months Follow Up Appt 6 months [facility] Work Phone: Start: 06-25-2013 End: 06-25-2013 MMM MMM [facility] Work Phone: Start: 05-19-2013 End: 06-21-2013 *Hepatic Function Panel *Hepatic Function Panel [facility] Work Phone: Start: 05-19-2013 End: 06-21-2013 Lipid panel [AGGREGATE] *Lipid Profile CC PCP [facility] Work Phone: Start: 11-17-2012 End: 12-05-2012 *Hepatic Function Panel *Hepatic Function Panel [facility] Work Phone: Start: 11-17-2012 End: 12-05-2012 Lipid panel [AGGREGATE] *Lipid Profile [facility] Work Phone: Start: 2012 RSV Vaccine (1 - 1-dose 75+ series) RSV Vaccine (1 - 1-dose 75+ series) [facility] Start: 06-21-2012 End: 06-21-2012 Follow Up Appt 1 year Follow Up Appt 1 year [facility] Work Phone: Start: 06-23-2011 End: 06-23-2011 Follow Up Appt 1 year Follow Up Appt 1 year [facility] Work Phone: Start: 06-21-2011 Shingrix Vaccine (2 of 3) Shingrix Vaccine (2 of 3) [facility] Start: 1997 RSV Vaccine (1 - 1-dose 60+ series) RSV Vaccine (1 - 1-dose 60+ series) [facility] Start: 08-20-1955 Depression Screening Depression Screening [facility] Anion gap in Serum or Plasma [facility] BUN/Creatinine ratio [facility] Calcium [Mass/volume ] in Serum or Plasma [facility] Carbon dioxide, tota l [Moles/volume] in Central venous blood [facility] Catheterization of left heart [facility] Work Phone: Creatinine [Mass/vol ume] in Serum or Plasma [facility] Electrocardiographic procedure [facility] Erythrocyte mean cor puscular volume determination [facility] Glucose [Mass/volume ] in Serum or Plasma [facility] Hematocrit [Volume F raction] of Blood [facility] Hemoglobin [Mass/vol ume] in Blood [facility] Leukocytes [#/volume ] in Blood [facility] Mean corpuscular hem oglobin concentration determination [facility] Mean corpuscular hem oglobin determination [facility] Measurement of renal function [facility] Neutrophil count [facility] Neutrophil percent differential count [facility] Patient Education [facility] Work Phone: Patient referral [facility] Work Phone: Platelets [#/volume] in Blood [facility] Potassium measurement [facility] Red blood cell count [facility] Red cell distributio n width determination [facility] Serum chloride measurement [facility] Sodium measurement [facility] Urea nitrogen [Mass/ volume] in Serum or Plasma [facility] Urine culture [facility] US [facility] XR Chest PA and Lateral [facility] Immunizations Immunization Date Immunization Notes Care Provider Fa cility 12-31-2024 tetanus toxoid, redu anuradha diphtheria toxoid, and acellular pertussis vaccine, adsorbed Dr. Keron Maciel MD Work Phone: [facility] 11-12-2023 tetanus toxoid, redu anuradha diphtheria toxoid, and acellular pertussis vaccine, adsorbed Dr. Keron Maciel MD Work Phone: [facility] 02-01-2022 tetanus toxoid, redu anuradha diphtheria toxoid, and acellular pertussis vaccine, adsorbed Dr. Keron Maciel Work Phone: [facility] 08-07-2020 Covid (Moderna) Dr. Keron hdez Work Phone: [facility] 07-10-2020 Covid (Moderna) Dr. Keron hdez Work Phone: [facility] 03-07-2020 influenza virus vacc ine, unspecified formulation Barbie Nova Work Phone: [facility] 02-07-2020 tetanus toxoid, redu anuradha diphtheria toxoid, and acellular pertussis vaccine, adsorbed Dr. Keron Maciel Work Phone: [facility] 03-07-2019 influenza, high dose seasonal, preservative-free Barbie Nova Work Phone: [facility] 03-03-[address] Keron Maciel Work Phone: [facility] 03-08-2018 influenza, injectabl e, quadrivalent, contains preservative Barbie Nova Work Phone: [facility] 03-08-2018 influenza, injectabl e, quadrivalent, preservative free Dr. Keron Maciel MD Work Phone: [facility] 04-07-2015 influenza, injectabl e, quadrivalent, preservative free Dr. Keron Maciel Work Phone: [facility] 04-07-2015 influenza, seasonal, injectable Dr. Keron Maciel Work Phone: [facility] 03-19-2015 influenza, high dose seasonal, preservative-free [employer] Work Phone: [facility] 03-19-2015 influenza, injectabl e, quadrivalent, preservative free Dr. Keron Maciel MD Work Phone: [facility] 12-23-2014 pneumococcal conjuga te vaccine, 13 valent [employer] Work Phone: [facility] 06-19-2014 influenza, injectabl e, quadrivalent, preservative free Dr. Keron Maciel MD Work Phone: [facility] 04-03-2013 influenza virus vacc ine, unspecified formulation [employer] Work Phone: [facility] 04-26-2011 zoster vaccine, live [employer] Work Phone: [facility] Work Phone: 04-05-2010 influenza virus vacc ine, unspecified formulation [employer] Work Phone: [facility] 03-19-2009 influenza virus vacc ine, unspecified formulation [employer] Work Phone: [facility] 11-17-2005 tetanus and diphther ia toxoids, adsorbed, preservative free, for adult use (2 Lf of tetanus toxoid and 2 Lf of diphtheria toxoid) [employer] Work Phone: [facility] 04-28-2005 influenza virus vacc ine, unspecified formulation [employer] Work Phone: [facility] Work Phone: 03-19-2004 influenza virus vacc ine, whole virus [employer] Work Phone: [facility] 04-29-2003 pneumococcal polysaccharide vaccine, 23 valent Barbiepercy Nova Work Phone: [facility] 04-29-[address] Elisabeth Maciel Work Phone: [facility] Work Phone: 04-29-2003 pneumococcal vaccine , unspecified formulation Dr. Keron Maciel Work Phone: [facility] 03-19-2003 influenza virus vacc ine, whole virus Barbie Nova Work Phone: [facility] Payers Date Payer Category Payer Self-pay [id number] 2017 Medicare [employer] MEDICARE A ETNA MEDICARE PPO [id number] 2017-Present [phone] [address] [place] [address] PPO [id number] 2017 Medicare (Managed Care) [employer] [facility] [id number] 2017 Private Health Insurance [id number] 2006 Unknown [id number] Medicare [id number] Medicare [id number] Unknown [id number] 462 Unknown [id number]. 462 Unknown [id number]. 462 Unknown [id number]. 462 Unknown [id number]. 462 Unknown [id number]. 462 Unknown [id number] [id number]. 462 Unknown [id number]. 462 Unknown [id number] [id number]. 462 Unknown [id number] [id number]. 462 Unknown [id number] [id number]. 462 Unknown [id number] 2.16.840.1.373578.3.579.2. 462 Unknown [id number] [id number]. 462 Unknown [id number] [id number]. 462 Unknown [id number] 2.16.840.1.690810.3.579.2. 462 Unknown [id number] 2.16.840.1.261912.3.579.2. 462 Unknown [id number] 2.16.840.1.947653.3.579.2. 462 Unknown [id number] 2.16.840.1.381118.3.579.2. 462 Unknown [id number] 2.16.840.1.246942.3.579.2. 462 Unknown [id number] 2.16.840.1.190841.3.579.2. 462 Unknown [id number] 2.16.840.1.090084.3.579.2. 462 Unknown [id number] 2.16.840.1.728116.3.579.2. 462 Unknown [id number] 2.16.840.1.496711.3.579.2. 462 Unknown [id number] 2.16.840.1.006139.3.579.2. 462 Unknown [id number] 2.16.840.1.478935.3.579.2. 462 Unknown [id number] 2.16.840.1.158727.3.579.2. 462 Unknown [id number] 2.16.840.1.999525.3.579.2. 462 Unknown [id number] 2.16.840.1.467682.3.579.2. 462 Unknown [id number] 2.16.840.1.961748.3.579.2. 462 Unknown [id number] 2.16840.1.703981.3.579.2. 462 Social History Date Type Detail Facility Start: 10-13-2021 End: 09-14-2023 Tobacco smoking status WAIS Unknown if ever smoked [facility] Start: 02-12-2020 None [facility] Start: 02-12-2020 Spouse/ Signif icant Other [facility] Start: 02-12-2020 Non-smoker [facility] Start: 1935 Sex Assigned At Male [facility] Start: 11-01-2010 End: 12-31-2024 Tobacco smoking status WAIS Ex-smoker [facility] Work Phone: Start: 10-18-1959 End: 10-17-1964 History of tobacco use Current smoker [facility] Work Phone: Start: 10-18-1959 End: 10-17-1964 History of tobacco use Cigarette Smoker [facility] Work Phone: Start: 11-01-2010 End: 07-31-2023 Cigarettes smoked current (pack per day) - Reported 1 [facility] Start: 11-01-2010 Tobacco use and exposure Smokeless tobacco non-user [facility] Work Phone: Start: 07-31-2023 End: 12-13-2024 Alcohol intake Current non-drinker of alcohol (finding) [facility] Start: 09-24-2018 End: 07-31-2023 Tobacco use panel [facility] Adult Depression Screening Assessment 0 [facility] Start: 1935 Sex Assigned At Not on file [facility] Start: 06-16-2024 Tobacco Use Tobacco Use [facility] Medical Equipment Procedure Code Equipment Code Equipment [...] 3:51 PM Soham Mcgraw III, MD No [facility] 05-03-2017 Are you blind, or do you have serious difficulty seeing, even when wearing glasses No 05/03/2017 3:51 PM Soham Mcgraw III, MD [facility] 05-03-2017 Do you have serious difficulty walking or climbing stairs No 05/03/2017 3:51 PM Soham Mcgraw III, MD [facility] 05-03-2017 Do you have difficul ty dressing or bathing No 05/03/2017 3:51 PM Soham Mcgraw III, MD [facility] 05-03-2017 Because of a physica l, mental, or emotional condition, do you have difficulty doing errands alone such as visiting a physician's office or shopping No 05/03/2017 3:51 PM Soham Mcgraw III, MD [facility] Mental Status Date Assessment Result Facility 05-03-2017 Because of a physica l, mental, or emotional condition, do you have serious difficulty concentrating, remembering, or making decisions No 05/03/2017 3:51 PM Soham Mcgraw III, MD [facility] Clinical Notes 07-01-2015 to 12-31-2024 Note Date & Type Note Facility 12-31-2024 Radiology Diagnostic study note [facility] 12-21-2024 Discharge summary [facility] 12-21-2024 Radiology Diagnostic study note [facility] Imaging Services [address] [place], [place] [address] Chest without Contrast MR#: [id number] Acct: [id number] Name: OLMAN SYED Rep #: [id number] : 1935 M 89 From: Juana Jimenez MD PCP: Dr. Keron Maciel MD Status: REG ER Study:Chest without Contrast Date of Exam: 12/21/24 Exam# [id number] Ordering Dr: Rhonda Sorenson DO PROCEDURE: CHEST [...] Contrast IMPRESSION: No acute abnormality Reading Location: [facility] CC: Dr. Keron Maciel MD; Dr. Derick Sorenson DO ~ Tire Stripper: Signed [facility] 12-21-2024 Radiology Diagnostic study note [facility] Imaging Services [address] [place] [address] Chest PA and Lateral MR#: [id number] Acct: [id number] Name: OLMAN SYED Rep #: [id number] : 1935 M 89 From: Babita Myers MD PCP: Dr. Keron Maciel MD Status: REG ER Study:Chest PA and Lateral Date of Exam: 12/21/24 Exam# [id number] Ordering Dr: Rhonda Sorenson DO PROCEDURE: CHEST [...] radiograph with left mid/lingular infiltrate. Reading Location: [id number] CC: Dr. Keron Maciel MD; Dr. Derick Sorenson DO ~ Tire Stripper: Signed [facility] 12-21-2024 Discharge summary Note Date/Time December 21, 2024 8:32p m [facility] Medical Records Department [address] [place] [address] Emergency Department Summary 12/21/24 MR#: [id number] Acct: [id number] Name: OLMAN SYED Rep #:[id number] : [...] distance he is very short of breath. [facility] Medical History Pneumonia Parkinson's disease Vasovagal episode [...] flank pain Anemia Atherosclerotic heart disease of [place] coronary artery without angina pectoris 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 [...] Placard #1 ea 10/14/20 Unknown Rx vitamins A,C,M-kmtj-swyklu 2,148 1 tab PO BID 12/17/20 Unknown [...] follow commands knew that he was at [facility] Skin: Warm, dry, intact no rashes or [...] % (Auto) 60.1 Lymph % (Auto) 24.4 [place] % (Auto) 10.8 H Eos % (Auto) [...] radiograph with left mid/lingular infiltrate. Reading Location: PSYCHIATRIC Chest CT 12/21/24 18:54 IMPRESSION: No acute abnormality Reading Location: [facility] Discharge Plan Triage Chief Complaint: [...] not show any acute abnormalities. Print Language: Guatemalan Disposition Disposition: Home, Self Care What to do if you have Problems For any increased pain, shortness of breath, bleeding, nausea or vomiting, chestpain, or any unexpected problems, contact your Primary Care Provider. Call [facility] ([phone]) or report to the closest Emergency Room. Call 911 if necessary. 12/21/242031 <Electronically signed by Derick Sorenson DO> Cosigner Signature (if applicable): CC: Dr. Keron Maciel MD ~ Signed [facility] Work Phone: 1(159) 533-855406-27-2025 NoteHNO ID: [id number] Author: BARBIE NOVA, ? Service: ? Author [...] to RTC in 3-4 months. Barbie Rohini [facility]06-27-2025 History of Present illness Narrative* Barbie Nova [...] Objective: Patient presents to clinic ambulating in [facility] Vasc: DP and PT pulses are faintly [...] Care Dinorah Dempsey LPN documented in this encounterOhio[facility]06-27-2025 NoteHNO ID: [id number] Author: DINORAH DEMPSEY LPN Service: ? Author Type: LICENSED NURSE Type: Progress Notes Filed: 12/14/2024 09:07 Note Text: AMB ROOMING INTAKE FLOWSHEET DATA Patient presents with: Left Foot - Established Patient, Follow Up, Diabetic Foot Care Right Foot - Established Patient, Follow Up, Diabetic Foot Care [facility] Radiology Diagnostic study note [facility] Imaging Services [address] [place] [address]90951 Chest PA and Lateral MR#: [id number] Acct: [id number] Name: OLMAN SYED Rep #: [id number] : 1935 M 89 From: Juwan Suazo MD PCP: Dr. Keron Maciel MD Status: REG CLI Study:Chest PA and Lateral Date of Exam: 12/09/24 Exam# [id number] Ordering Dr: Keron Maciel MD PROCEDURE: CHEST [...] deformities of the right ribs. [facility] CC: Dr. Keron Maciel MD ~ Tire Stripper: Signed [facility]06-09-2025 Evaluation note* Diagnosis Onset Date Resolution Status Admit Date 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 November 25, 2024 1 1:01am CKD (chronic kidney disease) stage 3, GFR 30-59 ml/min chronic November 252024 11:01am Essential (primary) hypertension chr onic November 25, 2024 11:01am Diabetes mellitus type 2, insulin dependent inactive November 25, 2024 11:01am Generalized weakness inactive November 25, 2024 11:01am [facility] Work Phone: 1(670) 345-6731792682-03-1304 Evaluation note* Diagnosis Onset Date Resolution Status Admit Date 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 November [...] 09 1:52pm 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 December 09, 2024 1:52pm CKD (chronic kidney disease) stage 3, GFR 30-59 ml/min chronic November 182024 1:52pm Essential (primary) hypertension chr onic December 09, 2024 1:52pm HLD (hyperlipidemia) chronic December 09, 2024 1:52pm DANYELL (obstructive sleep apnea) chroni c December 09, 2024 1:52pm [facility] Work Phone: 1(462) 176-304506-09-2025 Evaluation note* Diagnosis Onset Date Resolution Status Admit Date Atherosclerotic heart disease of [place] coronary artery without angina pectoris chronic November [...] December 09 1:52pm Atherosclerotic heart disease of [place] coronary artery without angina pectoris chronic December [...] July 01, 2015 inactive December 23 1:32pm [facility] Work Phone: 1(190) 536-891406-09-2025 Evaluation note* Diagnosis Onset Date Resolution Status Admit Date Atherosclerotic heart disease of [place] coronary artery without angina pectoris chronic November [...] December 09 1:52pm Atherosclerotic heart disease of [place] coronary artery without angina pectoris chronic December [...] of breath inactive December 23, 2024 1:32pm [facility] Work Phone: 1(820) 369-591306-09-2025 Evaluation note* Diagnosis Onset Date Resolution Status Admit Date Atherosclerotic heart disease of [place] coronary artery without angina pectoris chronic November [...] December 09 1:52pm Atherosclerotic heart disease of [place] coronary artery without angina pectoris chronic December [...] 172024 11:10am Obesity chronic December 30 11:10am [facility] Work Phone: 1(933) 351-954706-09-2025 Radiology Diagnostic study note [facility] Imaging Services [address] [place] [address] Chest PA and Lateral MR#: [id number] Acct: [id number] Name: OLMAN SYED Rep #: [id number] : 1935 M 89 From: Ana Maza MD PCP: Dr. Keron Maciel MD Status: [facility] Study:Chest PA and Lateral Date of Exam: 11/25/24 Exam# [id number] Ordering Dr: Keron Maciel MD PROCEDURE: CHEST [...] ABI CC: Dr. Keron Maciel MD ~ Tire Stripper: Signed [facility]06-04-2025 Discharge summary [facility] Medical Records Department [address] [place] [address] Emergency Department Summary 11/19/24 MR#: [id number] Acct: [id number] Name: OLMAN SYED Rep #:[id number] : [...] improvement of symptoms he presents for evaluation. [facility] Medical History Parkinson's disease Vasovagal episode Obesity [...] flank pain Anemia Atherosclerotic heart disease of [place] coronary artery without angina pectoris 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 [...] Placard #1 ea 10/14/20 Unknown Rx vitamins A,C,C-buxb-bcegms 2,148 1 tab PO BID 12/17/20 Unknown [...] % (Auto) 65.1 Lymph % (Auto) 20.0 [place] % (Auto) 9.5 Eos % (Auto) 2.1 [...] Sl. Cloudy Urine pH 6.0 Ur Specific [place] 1.015 Urine Protein 30 H Urine Glucose [...] in the setting of cardiomegaly. Reading Location: [place] [address] Chest x-ray as interpreted by the emergency [...] the ER for repeat evaluation. Print Language: Guatemalan Disposition Disposition: Home, Self Care What to do if you have Problems For any increased pain, shortness of breath, bleeding, nausea or vomiting, chestpain, or any unexpected problems, contact your Primary Care Provider. Call [facility] ([phone]) or report tothe closest Emergency Room. Call 911 if necessary. 11/20/24 0030 Cosigner Signature (if applicable): CC: Dr. Keron Maciel MD ~ Signed [facility]06-03-2025 Radiology Diagnostic study note [facility] Imaging Services [address] [place], [place] [address] Chest PA and Lateral MR#: [id number] Acct: [id number] Name: OLMAN SYED Rep #: [id number] : 1935 M 89 From: Johan Higgins MD PCP: Dr. Keron Maciel MD Status: REG ER Study:Chest PA and Lateral Date of Exam: 11/19/24 Exam# [id number] Ordering Dr: Sharon Corrales DO PROCEDURE: CHEST PA AND LATERAL 11/19/2024 REASON FOR EXAM: DYSPNEA TECHNIQUE: Frontal and lateral views of the chest. COMPARISON: 07/16/2023. FINDINGS: Prior sternotomy. The heart is enlarged. Pulmonary vascular congestion. No pleural effusion or pneumothorax. Partially visualized lumbar fixation. RAD/Chest PA and Lateral IMPRESSION: Pulmonary vascular congestion in the setting of cardiomegaly. Reading Location: [place] [address] CC: Dr. Keron Maciel MD; Helio Corrales DO ~ Tire Stripper: Signed [facility]06-03-2025 Discharge summary Author Helio Corrales [facility] Note Date/Time November 20, 2024 12:30 am [facility] Medical Records Department [address] [place] [address] Emergency Department Summary 11/19/24 MR#: [id number] Acct: [id number] Name: OLMAN SYED Rep #:[id number] : [...] improvement of symptoms he presents for evaluation. [facility] Medical History Parkinson's disease Vasovagal episode Obesity [...] flank pain Anemia Atherosclerotic heart disease of [place] coronary artery without angina pectoris 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 [...] Placard #1 ea 10/14/20 Unknown Rx vitamins A,C,D-tpdk-faogfp 2,148 1 tab PO BID 12/17/20 Unknown [...] % (Auto) 65.1 Lymph % (Auto) 20.0 [place] % (Auto) 9.5 Eos % (Auto) 2.1 [...] Sl. Cloudy Urine pH 6.0 Ur Specific [place] 1.015 Urine Protein 30 H Urine Glucose [...] in the setting of cardiomegaly. Reading Location: [place] [address] Chest x-ray as interpreted by the emergency [...] the ER for repeat evaluation. Print Language: Guatemalan Disposition Disposition: Home, Self Care What to do if you have Problems For any increased pain, shortness of breath, bleeding, nausea or vomiting, chestpain, or any unexpected problems, contact your Primary Care Provider. Call [employer] [facility] ([phone]) or report to the closest Emergency Room. Call 911 if necessary. 11/20/24 0030 <Electronically signed by Helio Corrales DO> Cosigner Signature (if applicable): CC: Dr. Keron Maciel MD ~ Signed [facility] Work Phone: 1(995) 766-869003-21-2025 Instructions* Patient Instructions* Barbie Nova - 09/06/2024 [...] (or decreased sensation in your feet) a jack frame tender should always cut your toenails. Be Careful [...] Go to your health care provider or jack frame tender to treat these conditions. Can use tubigrip for lower extremity swelling. Apply during the day and can remove at night documented in this encounterOhiohealth [facility]03-21-2025 NoteHNO ID: [id number] Author: BARBIE NOVA, ? Service: ? Author [...] to RTC in 3-4 months. Barbie Nova [facility]03-21-2025 History of Present illness Narrative* Barbie Nova [...] Cintia Izquierdo MA Student documented in this encounterOhiohealth [facility]ville [facility]03-21-2025 NoteHNO ID: [id number] Author: CINTIA IZQUIERDO MA Student Service: ? Author Type: Student Type: Progress Notes Filed: 09/06/2024 14:17 Note Text: AMB ROOMING INTAKE FLOWSHEET DATA Patient presents with: Left Foot - Established Patient, Follow Up, Diabetic Foot Care Right Foot - Established Patient, Follow Up, Diabetic Foot Care Cintia Izquierdo [facility] Evaluation note* Diagnosis Onset Date Resolution Status Admit Date Left foot drop acute July 202024 1:54pm Parkinson's disease acute Febru marli 2024 1:54pm Mild cognitive impairment chronic August 01, 2024 1:54pm Orthostatic hypotension resolved F ebruary 2024 1:54pm [facility] Work Phone: 1(708) 689-7341110523-31-8944 Evaluation note* Diagnosis Onset Date Resolution Status Admit Date Left foot drop acute July 202024 1:54pm Parkinson's disease acute Febru 2024 1:54pm Mild cognitive impairment chronic August 01, 2024 1:54pm Orthostatic hypotension resolved F eb2024 1:54pm Diabetes mellitus type 2, insulin dependent acute November 25, 2024 11:01am Generalized weakness acute November 25, 2024 11:01am 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 November 11:01am CKD (chronic kidney disease) stage 3, GFR 30-59 ml/min chronic November 252024 11:01am Essential (primary) hypertension chronic November 25, 2024 1 1:01am [facility] Work Phone: [phone]) 493-472802-06-2025 Evaluation note* Diagnosis Onset Date Resolution Status Admit Date Diabetes mellitus type 2 in obese acute July 25 2:30pm Parkinson's disease acute Febru 2024 2:30pm Polyneuropathy acute July 252024 2:30pm Vasovagal episode acute uar 2024 2:30pm Cyfjv-rc-udxvaly kidney injury chron ic July 25, 2024 2:30pm 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 July [...] Orthostatic hypotension resolved F ebruary 2024 1:54pm [facility] Work Phone: 1(362) 803-965512-29-2024 [facility]12-19-2024 NoteHNO ID: [id number] Author: BARBIE NOVA, ? Service: ? Author [...] to RTC in 3-4 months. Barbie Nova [facility]12-19-2024 History of Present illness Narrative* Barbie Nova [...] foot/nail care. [facility] 02/29/24 documented in this encounterOhiohealth Nelsonville Health Center12-19-2024 Instructions* Patient Instructions* Barbie Nova - 06/06/2024 [...] (or decreased sensation in your feet) a jack frame tender should always cut your toenails. Be Careful [...] Go to your health care provider or jack frame tender to treat these conditions. documented in this encounterOhiohealth Nelsonville Health Center12-19-2024 NoteHNO ID: [id number] Author: ROSITA GARNER, RN Service: ? Author Type: Registered Nurse Type: Progress Notes Filed: 06/06/2024 10:22 Note Text: Patient presents with: Left Foot - Established Patient, Follow Up, Diabetic Foot Care Right Foot - Established Patient, Follow Up, Diabetic Foot Care Patient presents for follow up diabetic foot/nail care. [facility] 02/29/24[facility]09[facility]24 NoteHNO ID: [id number] Author: BARBIE NOVA, ? Service: ? Author [...] Objective: Patient presents to clinic ambulating in [facility] Vasc: DP and PT pulses are palpable [...] to RTC in 3-4 months. Barbie Nova [facility]09-12-2024 History of Present illness Narrative* Rohini Barbie [...] foot/nail care. Due for diabetic foot exam. [facility] 11/16/23 documented in this encounterOhiohealth Nelsonville [facility] Center09-12-2024 NoteHNO ID: [id number] Author: ROSITA GARNER RN Service: ? Author Type: Registered Nurse Type: Progress Notes Filed: 02/29/2024 14:01 Note Text: Patient presents with: Left Foot - Established Patient, Follow Up, Diabetic Foot Check Right Foot - Established Patient, Follow Up, Diabetic Foot Check Patient presents for follow up diabetic foot/nail care. Due for diabetic foot exam. [facility] 11/16/23[facility]05-30-[facility] Instructions* Patient Instructions* Barbie Nova - [...] (or decreased sensation in your feet) a jack frame tender should always cut your toenails. Be Careful [...] Go to your health care provider or jack frame tender to treat these conditions. documented in this encounterOhiohealth Nelsonville [facility] Center05-30-2024 History of Present illness Narrative* Barbie Nova [...] Care Dinorah Dempsey LPN documented in this encounterOhiohealth Nelsonville [facility] Center02-12-2024 Miscellaneous Notes* Addendum Note - Barbie Nova - 07/31/2023 1:32 PM ESTAddended by: BARBIE NOVA DPM on: 07/31/2023 01:32 PM Modules accepted: Orders documented in this encounterOhiohealth Nelsonville Health Center02-12-2024 Instructions* Patient Instructions* Barbie Nova - 07/31/2023 [...] (or decreased sensation in your feet) a jack frame tender should always cut your toenails. Be Careful [...] Go to your health care provider or jack frame tender to treat these conditions. 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 07/07/2014 Calculus of kidney Class 3 severe obesity due to excess calories with body mass index (BMI) of 40.0 to 44.9 in adult (HCC) Controlled type 2 diabetes mellitus with stage 3 chronic kidney disease, without long-term current use of insulin ([facility]) 03/26/2018 Diaphragmatic hernia without mention of obstruction [...] SPEC WHEN PFRMD 01/29/15 Colonoscopy ECHO 06/24/2015 [facility] - see scanned documents ESOPHAGOGASTRODUODENOSCOPY TRANSORAL [...] Care Dinorah Dempsey LPN documented in this encounterOhiohealth Nelsonville [facility] Center06-23-2023 Discharge summary Author Mark Aggarwal [facility] December 09, 2022 2:12pm Note Date/Time December 09, 2022 2:12 pm [facility] Physical Therapy [facility] [address] [place] [address] [address] [place] [address] / REHABILITATION SERVICES DISCHARGE SUMMARY MR#: [id number] Acct: [id number] Name: OLMAN SYED Rep #: [id number] : 1935 87 From: Mark Aggarwal PT, ATC Referring Dr.: Dr. Rich Padgett MD Status: REG R Insurance: [facility] [employer]EL[employer] PAY [employer]ANCE It has been my [...] please feel free to call me at [phone]. Thank you for the referral of thispatient. Sincerely, Mark Aggarwal, PT, ATC <Electronically signed by Mark Aggarwal PT, ATC> 12/09/22 1412 CC: Dr. Keron Maciel MD; Dr. Rich Padgett MD ~ [facility] Signed [facility] Work Phone: 1(445) 465-124306-23-2023 Discharge summary Author Kalia Hendrickson [facility] December 09, 2022 1:32pm Note Date/Time December 09, 2022 1:32 pm [facility] Physical Therapy [facility] [address] [place] [address] [address] [place] [address] / REHABILITATION SERVICES DISCHARGE SUMMARY MR#: [id number] Acct: [id number] Name: OLMAN SYED Rep #: [id number] : 1935 87 From: Kalia HARRELL T Referring Dr.: Dr. Rich Padgett MD Status: REG RCR [facility] It has [...] please feel free to call me at [phone]. Thank you for the referral of thispatient. [...] <Electronically signed by Kalia Hendrickson DPT> 12/09/22 6144 CC: Dr. Keron Maciel MD; Dr. 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 [facility] Work Phone: 1(101) 716-361101-13-2016 Evaluation note* Diagnosis Onset Date Resolution Status 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 Essential (primary) hypertension chronic History of coronary artery stent placement June chronic HLD (hyperlipidemia) chronic Cardiomyopathy acute Leg swelling acute Obesity acute Polyneuropathy acute 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 disease 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 CKD (chronic kidney disease) stage 3, GFR 30-59 ml/min chronic Diabetes mellitus chronic Essential (primary) hypertension chronic History of coronary artery stent placement June chronic HLD (hyperlipidemia) chronic DANYELL (obstructive sleep apnea) chronic Parkinson's disease chronic Cardiac arrhythmia acute Abnormality of gait and mobility chronic 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 disease 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 Mild cognitive impairment ch ronic Parkinson's disease chronic Diabetes mellitus [facility] [facility]: Evaluation note* Diagnosis Onset Date Resolution Status B12 nutritional deficiency a cute 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 disease acut e Mild cognitive impairment [place] Parkinson's disease acute Polyneuropathy acute DANYELL (obstructive sleep apnea) chronic Obesity acute Polyneuropathy acute Diabetes mellitus chronic Essential (primary) hypertension chronic HLD (hyperlipidemia) chronic 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 disease acut e Mild cognitive impairment [place] Parkinson's disease acute Polyneuropathy acute B12 nutritional deficiency a cute 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 disease acut e Fungal skin infection acute Obesity acute 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 Body mass index (BMI) 40.0-44.9, adult chronic CKD (chronic kidney disease) stage 3, GFR 30-59 ml/min chronic Diabetes mellitus chronic Essential (primary) hypertension chronic HLD (hyperlipidemia) [facility] Work Phone: Evaluation note* Diagnosis Onset Date Resolution Status B12 nutritional deficiency a cute 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 disease acut e Mild cognitive impairment [place] Parkinson's disease acute Polyneuropathy acute DANYELL (obstructive sleep apnea) chronic Obesity acute Polyneuropathy acute Diabetes mellitus chronic Essential (primary) hypertension chronic HLD (hyperlipidemia) chronic 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 disease acut e Mild cognitive impairment [place] Parkinson's disease acute Polyneuropathy acute B12 nutritional deficiency a cute 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 disease acut e Fungal skin infection acute Obesity acute 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 Body mass index (BMI) 40.0-44.9, adult chronic CKD (chronic kidney disease) stage 3, GFR 30-59 ml/min chronic Diabetes mellitus chronic Essential (primary) hypertension chronic HLD (hyperlipidemia) chronic 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 Essential (primary) hypertension chronic History of coronary artery stent placement June [facility] Work Phone: Evaluation note* Diagnosis Onset Date Resolution Status 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 disease acut e Mild cognitive impairment [place] Parkinson's disease acute Polyneuropathy acute B12 nutritional deficiency a cute 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 disease acut e Fungal skin infection acute Obesity acute 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 Body mass index (BMI) 40.0-44.9, adult chronic CKD (chronic kidney disease) stage 3, GFR 30-59 ml/min chronic Diabetes mellitus chronic Essential (primary) hypertension chronic HLD (hyperlipidemia) chronic 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 Essential (primary) hypertension chronic History of coronary artery stent placement June [facility] Work Phone: Evaluation note* Diagnosis [...] block chronic 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 Essential (primary) hypertension chronic History of coronary artery stent placement June chronic HLD (hyperlipidemia) [facility] Work Phone: Evaluation note* Diagnosis Onset Date Resolution Status Obesity acute DANYELL (obstructive sleep apnea) chronic 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 Essential (primary) hypertension chronic History of coronary artery stent placement June chronic HLD (hyperlipidemia) [facility] Work Phone: Evaluation note* Diagnosis Onset Date Resolution Status Obesity acute DANYELL (obstructive sleep apnea) chronic 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 Essential (primary) hypertension chronic History of coronary artery stent placement June chronic HLD (hyperlipidemia) chronic Cardiomyopathy acute Leg swelling acute Obesity acute Polyneuropathy acute 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 disease 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 CKD (chronic kidney disease) stage 3, GFR 30-59 ml/min chronic Diabetes mellitus chronic Essential (primary) hypertension chronic History of coronary artery stent placement June chronic HLD (hyperlipidemia) chronic DANYELL (obstructive sleep apnea) chronic Parkinson's disease [facility] Work Phone: Evaluation note* Diagnosis Onychomycosis- Primary Dermatophytosis of nail Pain in toe of left foot Pain in limb Pain in toe of right foot Pain in limb Xerosis cutis Other specified disease of sebaceous glands Diabetic polyneuropathy associated with diabetes mellitus due to underlying condition ([facility]) Callus of heel Corns and callosities [facility] Pain Generalized pain [facility] Diagnosis Onset Date Resolution Status Diabetes mellitus type 2 in obese acute 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 Body mass index (BMI) 40.0-44.9, adult chronic CKD (chronic kidney disease) stage 3, GFR 30-59 ml/min chronic Essential (primary) hypertension chronic HLD (hyperlipidemia) chronic DANYELL (obstructive sleep apnea) chronic 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 disease 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 Mild cognitive impairment [place] Parkinson's disease chronic Acute bronchitis acute B12 nutritional deficiency a cute Diabetes mellitus type 2 in obese acute Obesity acute 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 CKD (chronic kidney disease) stage 3, GFR 30-59 ml/min chronic Essential (primary) hypertension chronic HLD (hyperlipidemia) chronic [facility] Work Phone: Evaluation note* Diagnosis Onychomycosis- Primary Dermatophytosis of nail Pain in toe of left foot Pain in limb Pain in toe of right foot Pain in limb Diabetic polyneuropathy associated with type 2 diabetes mellitus (HCC) [facility] Diagnosis Onychomycosis- Primary Dermatophytosis of nail Pain in toe of left foot Pain in limb Pain in toe of right foot Pain in limb Diabetic polyneuropathy associated with type 2 diabetes mellitus (HCC) [facility] Diagnosis Onychomycosis- Primary Dermatophytosis of nail Pain in toe of left foot Pain in limb Pain in toe of right foot Pain in limb Diabetic polyneuropathy associated with type 2 diabetes mellitus (HCC) [facility] Onych[facility]osis- Primary Dermatophytosis of nail Pain in toe of left foot Pain in limb Pain in toe of right foot Pain in limb Diabetic polyneuropathy associated with type 2 diabetes mellitus (HCC) Venous insufficiency Unspecified venous (peripheral) insufficiency [facility] Onychomycosis- Primary Dermatophytosis of nail Pain in toe of left foot Pain in limb Diabetic polyneuropathy associated with type 2 diabetes mellitus (HCC) Pain in toe of right foot Pain in limb documented in this encounter [facility] Discharge instructions Additional Instructions Your workup today [...] please return to the ER for repeat evaluation.[facility] Work Phone: Hospital Discharge instructionsAdditional Instructions Stop taking the antibiotic azithromycin that you are currently on and take the doxycycline that was sent to your pharmacy as prescribed. Return with worsening symptoms or other concerns. Your CT of your chest did not show any focal consolidations. Your blood work did not show any acute abnormalities.[facility] Work Phone: Hospital Discharge instructionsAdditional Instructions Use ice to the bridge of your nose. This will help with swelling. This will also help with any bleeding from the nose.[facility] Work Phone: Reason for referral (narrative)No reason for referral information availableWooAult[facility] Work Phone: Reason for visit Narrative* Diagnostic Procedure Only (Routine) - Authorized Specialty Diagnoses / Procedures Referred By Contac t Referred To Contact XR IMAGING Diagnoses Pain Procedures XR FOOT GENERAL 3V AP/LAT/OBL BILATERAL RADEX FOOT COMPLETE MINIMUM 3 VIEWS [address] [place] [address] [place] [address] Referral ID Status Reason Start Date Expiration Date Visits Requested Visits Authorized [id number] Authorized Auto-Generat ed Referral 07/12/2023 08/10/2024 1 1 [facility] Chief Complaint and Reason for Visit Chief [...] skin infection Obesity Atherosclerotic heart disease of [place] coronary artery without angina pectoris Body mass [...] skin infection Obesity Atherosclerotic heart disease of [place] coronary artery without angina pectoris Body mass index (BMI) 40.0-44.9, adult CKD (chronic kidney disease) stage 3, GFR 30-59 ml/min Diabetes mellitus Essential (primary) hypertension HLD (hyperlipidemia) Atherosclerotic heart disease of [place] coronary artery without angina pectoris Essential (primary) [...] skin infection Obesity Atherosclerotic heart disease of [place] coronary artery without angina pectoris Body mass index (BMI) 40.0-44.9, adult CKD (chronic kidney disease) stage 3, GFR 30-59 ml/min Diabetes mellitus Essential (primary) hypertension HLD (hyperlipidemia) Atherosclerotic heart disease of [place] coronary artery without angina pectoris Essential (primary) hypertension History of coronary artery stent placement Chief Complaint 3 M FU 6 M FU 9 M FU SOB ASHD HTN FALL WITH HEAD INJURY Reason for Visit 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 dise ase Mild cognitive impairment Parkinson's disease Polyneuropathy B12 nutritional deficiency 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 disease Fungal skin infection Obesity Atherosclerotic heart disease of [place] coronary artery without angina pectoris Body mass index (BMI) 40.0-44.9, adult CKD (chronic kidney disease) stage 3, GFR 30-59 ml/min Diabetes mellitus Essential (primary) hypertension HLD (hyperlipidemia) Atherosclerotic heart disease of [place] coronary artery without angina pectoris Essential (primary) hypertension History of coronary artery stent placement Chief Complaint 9 M FU SOB ASHD HTN FALL WITH HEAD INJURY STITCHES OUT 3 M FU E-ORDER Amb Documentation Reason for Visit Atherosclerotic hear t disease of [place] coronary artery without angina pectoris Essential (primary) [...] 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 Essential (primary) hypertension History of coronary artery stent placement HLD (hyperlipidemia) Chief Complaint 1 Y FU 6 M FU Reason for Visit Obesity DANYELL (obstructive sleep apnea) Atherosclerotic heart disease of [place] coronary artery without angina pectoris Essential (primary) hypertension History of coronary artery stent placement HLD (hyperlipidemia) Chief Complaint 1 Y FU 6 M FU 8 M FU E-ORDER Reason for Visit Obesity DAYNELL (obstructive sleep apnea) Atherosclerotic heart disease of [place] coronary artery without angina pectoris Essential (primary) [...] for Visit Atherosclerotic hear t disease of [place] coronary artery without angina pectoris Essential (primary) [...] Parkinson's disease Diabetes mellitus Chief Complaint sob [facility] ER FU 6 M FU Cough 6 M FU E ORDERS Reason for Visit Diabetes mellitus ty pe 2 in obese Atherosclerotic heart disease of [place] coronary artery without angina pectoris Body mass index (BMI) 40.0-44.9, adult CKD (chronic kidney disease) stage 3, GFR 30-59 ml/min Essential (primary) hypertension HLD (hyperlipidemia) DANYELL (obstructive sleep apnea) 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 disease Mild cognitive impairment Parkinson's disease Acute bronchitis B12 nutritional deficiency Diabetes mellitus type 2 in obese Obesity Atherosclerotic heart disease of [place] coronary artery without angina pectoris CKD (chronic kidney disease) stage 3, GFR 30-59 ml/min Essential (primary) hypertension HLD (hyperlipidemia) Chief Complaint Admit Date 4 M FU August 01, 2024 1:54pm sob November 19, 2024 10:47 pm [facility] ER FU November 25, 2024 11:01 am [...] 11:0 1am 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 November 25, [...] Vasovagal episode July 25, 2024 2 :30pm [id number] kidney injury July 25, 2024 2:30pm 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 July 25, [...] Date sob November 19, 2024 10:47 pm [facility] ER FU November 25, 2024 11:01 am dyspnea on exertion November 25, 2024 12:34 pm 2 WK FU December 09, 2024 1:52 pm Reason for Visit Admit Date 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 November 25, 2024 11:01am CKD (chronic kidney disease) stage 3, GF R 30-59 ml/min November 25, 2024 11:01am Essential (primary) hypertension November 11:01am Diabetes mellitus type 2, insulin depend ent November 25, 2024 11:01am Generalized weakness November 25, 2024 11:0 1am Chief Complaint Admit Date sob November 19, 2024 10:47 pm [facility] ER FU November 25, 2024 11:01 am dyspnea on exertion November 25, 2024 12:34 pm 2 WK FU December 09, 2024 1:52 pm EORDER December 09, 2024 3:24 pm Reason for Visit Admit Date 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 November 25, [...] 1:52 pm 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 December 09, 2024 1:52pm CKD (chronic kidney disease) stage 3, GF R 30-59 ml/min December 09, 2024 1:52pm Essential (primary) hypertension December 092024 1:52pm HLD (hyperlipidemia) December 09, 2024 1:5 2pm DANYELL (obstructive sleep apnea) December 09, 2024 1:52pm Chief Complaint Admit Date sob November 19, 2024 10:47 pm [facility] ER FU November 25, 2024 11:01 am dyspnea on exertion November 25, 2024 12:34 pm 2 WK FU December 09, 2024 1:52 pm EORDER December 09, 2024 3:24 pm sob December 21, 2024 3:35p m Chief Complaint Admit Date sob November 19, 2024 10:47 pm [facility] ER FU November 25, 2024 11:01 am dyspnea on exertion November 25, 2024 12:34 pm 2 WK FU December 09, 2024 1:52 pm EORDER December 09, 2024 3:24 pm sob December 21, 2024 3:35p m Increased Dyspnea like before stent. L .L. 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 L .L. 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 L .L. 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 L .L. December 23, 2024 1:32pm [facility] ER FU December 30, 2024 11:1 0am fall December 31, 2024 2:25 pm DYSPNEA ON EXERTION January 02, 2025 1:46 pm [facility] ER FU January 06, 2025 1:55 pm [...] Will Yes July 13 11:49am Power of Outboard Motorboat Rigger Yes July 13, 2021 11:49am Advance Directive Response Recorded Date/ Time Advance Directives No October 28 8:35am Living Will No October 28, 2021 8 :35am Power of Outboard Motorboat Rigger No October 28, 2021 8:35am Advance Directive Response Recorded Date/ Time Advance Directives Yes October 29 7:13am Living Will Yes October 29, 2021 7 :13am Power of Outboard Motorboat Rigger Yes October 29, 2021 7:13am Advance Directive Response Recorded Date/ Time Advance Directives on File Yes October 172021 7:13am Name of Medical Power of Outboard Motorboat Rigger Iris bradley- October 29, 2021 7:13am Name of Medical Power of Outboard Motorboat Rigger TERRENCE BOURNE NEVINJOHN February 01, 2022 1:26pm Advance Directives Yes October 29 7:13am Living Will Yes February 01 1:26pm Power of Outboard Motorboat Rigger Yes February 01 022 1:26pm Advance Directive Response Recorded Date/ Time Name of Medical Power of Outboard Motorboat Rigger TERRENCE BOURNE NEVINJOHN February 01, 2022 1:26pm Advance Directives Yes October 29 7:13am Living Will Yes February 01 2 1:26pm Power of Outboard Motorboat Rigger Yes February 01 022 1:26pm Advance Directive Response Recorded Date/ Time Advance Directives Yes October 29 7:13am Living Will Yes February 01 1:26pm Power of Outboard Motorboat Rigger Yes February 01, 2 022 1:26pm Documents on File Type Date Recorded Patient Trekking Guide Expl anation Advance Directive(s) 10/30/2008 10:54 PM Documents on File Type Date Recorded Patient Trekking Guide Expl anation Advance Directive(s) 10/30/2008 10:54 PM Advance Directive Response Recorded Date/ Time Advance Directives Yes January 23, 2 023 2:13pm Living Will No July 16 4:09pm Power of Outboard Motorboat Rigger No July 16, 2023 4:09pm Advance Directive Response Recorded Date/ Time Living Will Yes December 20, 2023 2 :43pm Do you have a Healthcare Power of Outboard Motorboat Rigger? Yes December 20, 2023 2:43pm Do you have a Healthcare Power of Outboard Motorboat Rigger? Yes November 19, 2024 10:51pm Advance Directives Yes December 19 2:43pm Advance Directive Response Recorded Date/ Time Living Will Yes December 20, 2023 2 :43pm Do you have a Healthcare Pow er of Outboard Motorboat Rigger? Yes December 20, 2023 2:43pm Do you have a Healthcare Pow er of Outboard Motorboat Rigger? Yes November 19, 2024 10:51pm Do you have a Healthcare Pow er of Outboard Motorboat Rigger? Yes December 21, 2024 4:06pm Name of Medical Power of Outboard Motorboat Rigger Iris briceno December 21, 2024 4:06pm Advance Directives Yes December 19 2:43pm Advance Directive Response Recorded Date/ Time Living Will Yes December 20, 2023 2 :43pm Do you have a Healthcare Pow er of Outboard Motorboat Rigger? Yes December 20, 2023 2:43pm Do you have a Healthcare Pow er of Outboard Motorboat Rigger? Yes December 31, 2024 2:33pm Do you have a Healthcare Pow er of Outboard Motorboat Rigger? Yes November 19, 2024 10:51pm Do you have a Healthcare Pow er of Outboard Motorboat Rigger? Yes December 21, 2024 4:06pm Name of Medical Power of Outboard Motorboat Rigger Iris briceno December 21, 2024 4:06pm Advance [...] Provider, Referri ng Provider Active Lela Sherman SPRAY DRIER, SPRAY DRIER-C Attending Provider Active Team Status: Inactive Member [...] Padgett MD Attending Provider, Referring Provider Active Case Packer Relationship Specialty Start Date End Date Keron Maciel MD [address] [place] [address] PCP - General Internal Medicine 06/09/21 Case Packer Relationship Specialty Start Date End Date Keron Maciel MD [address] [place] [address] PCP - General Internal Medicine 06/09/21 Team Status: Inactive Member Role Status Dates Dr. Keron Maciel MD Primary Care Provider, Referri ng Provider Active Bhanu PICKARD, [place] Attending Provider Active Team Status: Inactive Member Role Status Dates Dr. Keron Maciel MD Primary Care Provider Active Dr. Saurabh Porter DO Attending Provider, Emergency Manda nath Active Case Packer Relationship Specialty Start Date End Date Keron Maciel MD [address] [place] [address] PCP - General Internal Medicine 06/09/21 Case Packer Relationship Specialty Start Date End Date Keron Maciel MD [address] [place] [address] PCP - General Internal Medicine 06/09/21 Case Packer Relationship Specialty Start Date End Date Keron Maciel MD [address] [place] [address] PCP - General Internal Medicine 06/09/21 Case Packer Relationship Specialty Start Date End Date Keron Maciel MD [address] [place] [address] PCP - General Internal Medicine 06/09/21 Team [...] 2024 End: December 23, 2024 Zhen Simons SPRAY DRIER, SPRAY DRIER-C Attending Provider Active S tart: December 23, [...] 2024 End: December 31, 2024 Dr. Tevin Tarn DO Attending Provider Active Start: December 31, [...] or prosecute any alcohol or drug abuse patient.[facility] the event this information is protected by the Federal Confidentiality of Alcohol and Drug Abuse Patient Records regulations: The Federal rules restrict any use of the information to criminally investigate or prosecute any alcohol or drug abuse patient.[facility] the event this information is protected by the Federal Confidentiality of Alcohol and Drug Abuse Patient Records regulations: The Federal rules restrict any use of the information to criminally investigate or prosecute any alcohol or drug abuse patient.[facility] the event this information is protected by the Federal Confidentiality of Alcohol and Drug Abuse Patient Records regulations: The Federal rules restrict any use of the information to criminally investigate or prosecute any alcohol or drug abuse patient.[facility] the event this information is protected by the Federal Confidentiality of Alcohol and Drug Abuse Patient Records regulations: The Federal rules restrict any use of the information to criminally investigate or prosecute any alcohol or drug abuse patient.[facility] Center[facility] the event this information is protected by the Federal Confidentiality of Alcohol and Drug Abuse Patient Records regulations: The Federal rules restrict any use of the information to criminally investigate or prosecute any alcohol or drug abuse patient.[facility] Center[facility] the event this information is protected by the Federal Confidentiality of Alcohol and Drug Abuse Patient Records regulations: The Federal rules restrict any use of the information to criminally investigate or prosecute any alcohol or drug abuse patient.[facility] Reason for Visit (unrecogniz ed section and content) Reason Comments Established Patient Diabetic Foot Care Reason Comments Established Patient Follow Up Diabetic Foot Check Reason Comments Established Patient Follow Up Diabetic Foot Care (unrecognized sect ion and content) No Status Records FoundNo Status Records Found INFORMATION SOURCE (unrecogn ized section and content) DATE CREATED AUTHOR 12/15/2024 [facility] DATE CREATED AUTHOR AUTHOR'S ANABEL RAMIREZ 01/04/2025 [facility] FOR RECORDS PERTAINING TO PATIENTS WHO [...] BE BASED ON THE PRIMARY CLINICAL RECORDS. [employer] provides no warranty or guarantee of the accuracy or completeness of information in this document.
--- OUTSIDE RECORDS SUMMARY | 2025-01-07 04:17 | XMS RPT_ITS | CCD ---
Author Organization [facility] Care Team Providers Care Parking Enforcement Manager Name Role Phone Saurabh Benites MD Unavailable Dr. Keron Maciel Primary Care Provider Dr. Keron Maciel Referring Provider [phone] Alo HEALTH COMMISSIONER, HEALTH COMMISSIONER-C Glory Attending Provider Dr. Soham Jones III Referring Provider Dr. Americo Nazario Attending Provider [phone] Austin Mora Attending Provider Dr. Keron Maciel Attending Provider Dr. David Ashton Attending Provider Dr. Keron Maciel Primary Care Provider Dr. Keron Maciel Referring Provider [phone] Alo HEALTH COMMISSIONER, HEALTH COMMISSIONER-C Glory Attending Provider Dr. Keron Maciel Attending Provider [phone] Keron Maciel Primary Care Provider Dr. Keron Maciel Referring Provider [phone] Hood HEALTH COMMISSIONER, HEALTH COMMISSIONER-C Casey Attending Provider [phone] Dr. Keron Maciel Attending Provider [phone] Erick Sung Attending Provider Unavailable Dr. Keron Maciel Primary Care Provider Dr. Keron Maciel Referring Provider [phone] Olga PICKARD, NEERAJ Reza Attending Provider Dr. Keron Maciel Primary Care Provider Dr. Keron Maciel Referring Provider Whit HEALTH COMMISSIONER, DENISE Vogel Attending Provider Olga PICKARD, PA [...] BROOKE, Dr. Sepulveda Emergency Provider [phone] [facility] HEALTH COMMISSIONER-CZhen Attending Provider Janell GUTIÉRREZ, Dr. Salazar Primary Care Provider [phone] Dr. Helio Corrales DO Attending Provider Savanna BROOKE, Dr. Cadet Emergency Provider Janell GUTIÉRREZ, Dr. Salazar Attending Provider Janell GUTIÉRREZ, Dr. Salazar Referring Provider Dr. Derick Sorenson DO Attending Provider Delta BROOKE, Dr. Sepulveda Emergency Provider [phone] [facility] HEALTH COMMISSIONER-CZhen Attending Provider Dr. Tevin Tran DO Emergency [...] Attending Unavailable Janell, Keron Primary Care Unavailable Hammond, Joan Referring Unavailable Daphne, Joan Attending Unavailable [...] Provider Dr. Patti Steinberg MD Attending Provider Nicolle GUTIÉRREZ, Dr. Pacheco Admit Provider [phone] Nicolle GUTIÉRREZ, Dr. Pacheco Attending Provider [phone] Allergies Allergy Classification Reported Allergen(s) Allergy Type Date of Onset Reaction(s) Facility Thiazolidinediones (glitazones) (1 source) pioglitazone Drug Allergy 7 [facility] (4 sources) pioglitazone Drug Allergy 1 Rash & passes out, Rash [facility] Work Phone: (20 sources) Lisinopril Drug Allergy 2 Cough [facility] (20 sources) Losartan [facility] Metoprolol Drug Allergy 2 [facility] (20 sources) pioglitazone; Translations: [PIOGLITAZONE HCL] Drug Allergy 7 Upset Stomach [facility] (11 sources) Naproxen Drug Allergy 5 HIVES [facility] (1 source) Lisinopril Drug Allergy 5 [facility] (1 source) Losartan Drug Allergy 5 [facility] (1 source) Metoprolol Drug Allergy 5 [facility] (1 source) Naproxen Drug Allergy 5 [facility] Medications Current Medications Medication Drug [...] 1 TABLET PO EVERY 6 HOURS NEEDED 10 3 February 04, 2020 February 07, 2020 12:02am Start: 01-08-2018 End: 04-19-2018 Start: 01-08-2018 End: 04-19-2018 Hydrocodone-Acetaminophen 1 EACH tablet Discontinued 1 - 2 NMA PO 4 TIMES DAILY NEEDED as needed for Pain 12 3 0 January 08, 2018 12:00am April 19, 2018 2:03pm Sprain of shoulder Unspecified sprain of unspecified shoulder joint, initial encounter Start: 01-08-2018 End: 04-19-2018 Hydrocodone-Acetaminophen Di scontinued 1 - 2 EACH PO 4 TIMES DAILY NEEDED 12 3 January 08, 2018 12:00am April 19, 2018 2:03pm Start: 05-20-2016 End: 05-31-2016 take 1 tablet by mouth once daily as needed NORCO 5-325 MG TABS One tablet by mouth daily as needed HYDROCODONE-ACETAMINOPHEN [id number] Juliann Levine FACE WORKER [id number] 200 actuat albuterol 0.09 mg/actuat metered dose [...] aerosol inhaler Discontinued 2 NMA INHALATION Q4H 18 11 March 21, 2019 9:21am July 23, 2019 [...] as needed for Sob &/Or Wheezing 180 March 21, 2019 12:00am July 23, 2019 [...] AERS As needed - 90mcg/inh ALBUTEROL SULFATE [id number] David Ashton MD Comment on above: Inhale [...] Start: 12-17-2020 take 2 tablets by mo [facility] once daily at dinner Vitamins A,C,B-Jjsc-Oimuin (Preservision Areds) 7,160 unit- 113 mg-100 unit tablet Active 2 TABLET PO DAILY December 17, 2020 12:00am administer with AM and PM meals aspirin 81 mg delayed release oral tablet (20 sources) Nonsteroidal Anti-inflammatory Drug Start: 07-16-2015 Start: 07-16-2015 [facility] ASPIRIN 81 MG TABS One tablet by mouth daily ASPIRIN [id number] Audelia Espinoza PA-C Start: 10-28-2010 End: 06-16-2015 take 1 tablet by mouth once daily ASPIRIN 81 MG TABS One tablet by mouth daily ASPIRIN [id number] David Ashton MD Comment on above: Take [...] {tbl} PO THREE TIMES A DAY 90 February 25, 2021 2:02pm July 13, 2021 [...] britt th twice daily. cholecalciferol 0.125 mg ora l [...] As directed Start: 01-04-[address] ockings (-) Active 0 .Route .MEDSUPPLY 2 January 04, [...] tablet by mouth twice daily FERROUS SULFATE [id number] Juliann Levine LPN finasteride 5 mg oral tablet (20 sources) 5-alpha Reductase Inhibitor Start: 05-29-2014 End: 05-31-2016 Comment on above: Take 5 mg by mouth o nce daily. folic acid 1 mg oral tablet (11 sources) Start: 06-15-2024 Handicap Paccard (17 sources) Start: 01-18-[address] Active 0 .Route .MEDSUPPLY 1 January 18, 2021 2:15pm Duration: Lifetime (5 [...] on above: Take 1 capsule by mo [facility] once daily. Left AFO (7 sources) Start: 01-04-2024 Left AFO Active 0 .Route .MEDSUPPLY 1 0 January 04, 2024 12:00am Left foot drop Foot drop, left foot left foot drop (ICD 10: M21.372) As directed Start: 01-04-2024 Left AFO Activ e 0 .Route .MEDSUPPLY 1 January 04, 2024 12:00am As directed MEDICATION, [...] by mouth three times daily METFORMIN HCL [id number] Davdi Ashton MD Comment on above: Take 2 tablets by mo [facility] twice daily with meals. insulin isophane, human [...] in the pm INSULIN ISOPHANE & REGULAR [id number] David Ashton MD Start: 05-29-2014 take 35 [IU] by subc utaneous injection in the morning, then take 25 [IU] by subcutaneous injection in the evening NOVOLIN 70/30 (70-30) 100 UNIT/ML SUSP 35 units sq in the am and 25 units sq in the pm INSULIN ISOPHANE & REGULAR [id number] David Ashton MD Comment on above: 48 [...] days, then 1 for 3 days. PREDNISONE [id number] Lela Sherman CNP Comment on above: Take 4 tabs daily fo r 3 days, then 2 tabs daily for 3 days, then 1 tab daily for 3 days with food. 12 hr ranolazine 500 mg exte nded release oral tablet (20 sources) Anti-anginal Start: 01-06-2025 Start: 12-23-2024 End: 01-06-2025 Start: 05-20-2024 take 1 tablet by britt every twelve hours ranolazine ER (RANEXA) 500 [...] on above: Take 1 capsule by mo [facility] daily at bedtime. traZODone hydrochloride 50 mg [...] AT BEDTIME as needed for sleep 30 July 24, 2023 4:01pm May 20, 2024 [...] daily. vitamin b12 1 mg oral tablet (17 sources) Vitamin B12 Start: 06-15-2024 Start: 01-18-2021 End: 01-18-2021 inject 1000 ug by intramuscular injection once cyanocobalamin (vitamin B-12) 1,000 mcg/mL injection solution Discontinued 1000 MCG IM ONCE 1 January 18, 2021 2:57pm January 18, 2021 3:07pm zinc acetate 50 mg oral caps ule (11 sources) Start: 06-15-2024 (20 sources) Start: 06-15-2024 [...] End: 09-27-2024 amoxicillin 500 mg oral capsule (12 sources) Penicillin-class Antibacterial Start: 01-23-2023 End: 02-02-2023 [...] 11-19-2020 End: 01-18-2021 Arm Brace (Wrist Brace) [facility] Discontinued 0 .ROUTE .MEDSUPPLY 1 November 19, 2020 12:00am January 18, 2021 1:38pm As directed atorvastatin 20 mg oral tablet (4 sources) HMG-CoA Reductase Inhibitor Start: 06-21-2013 take 1 tablet by mouth once daily LIPITOR 20 MG TABS One tablet by mouth daily ATORVASTATIN CALCIUM [id number] Ania Perez Fatimah RN Start: 10-28-2010 take 1 tablet by britt th once daily LIPITOR 10 MG TABS One tablet by mouth daily ATORVASTATIN CALCIUM [id number] Paula Bazzi azithromycin 500 mg oral tab let (20 sources) Macrolide Antimicrobial Start: 12-10-2024 End: 12-30-2024 Start: 11-25-2024 End: 12-09-2024 Start: 12-07-2016 End: 01-20-2017 AZITHROMYCIN 250 MG TABS 2 t ablets by mouth today and then 1 tablet daily for the next 4 days AZITHROMYCIN [id number] Audelia Espinoza PA-C benzonatate 100 mg oral caps ule (12 sources) Non-narcotic Antitussive Start: 08-10-2023 End: 12-19-2023 [...] 1 NMA TOPICAL TWICE A DAY 45 10 0 October 13, 2021 12:00am October 22, 2021 [...] Take 2 puffs twice daily BUDESONIDE-FORMOTEROL FUMARATE [id number] Americo Nazario DO cefuroxime 500 mg oral tablet (17 sources) Cephalosporin Antibacterial Start: 12-10-2024 End: 12-20-2024 Start: 11-25-2024 End: 12-02-2024 cephalexin 500 mg oral capsu le (20 sources) Cephalosporin Antibacterial Start: 11-20-2024 End: 12-09-2024 Start: 11-20-2023 End: 12-19-2023 Start: 11-20-2023 End: 12-19-2023 take 1 capsule by mouth twice daily Cephalexin 500 mg capsule Discontinued 500 mg PO TWICE A DAY 14 November 20, 2023 12:00am December 19, 2023 4:33pm 12 hr chlorpheniramine polistirex 1.6 mg/ml / HYDROcodone polistirex 2 mg/ml extended release suspension (4 sources) Histamine-1 Receptor Antagonist, Opioid Agonist Start: 12-07-2016 End: 01-20-2017 take 5 mL by mouth every twelve hours TUSSIONEX PENNKINETIC ER 10-8 MG/5ML SUER 1 tsp q12h as needed HYDROCOD POLST-CHLORPHEN POLST [id number] YOSEF BowmanC GLUCOSAMINE-CHONDROITI N CAPS (4 sources) Start: 02-25-2011 take 2 tablets by mouth once daily GLUCOSAMINE-CHONDROI TIN CAPS Two tablets by mouth daily GLUCOSAMINE-CHONDROI TIN CAPS [id number] Paula Bazzi Start: 02-25-2011 End: 06-23-2011 take 2 tablets by mouth once daily GLUCOSAMINE-CHONDROITIN CAPS Two tablets by mouth daily GLUCOSAMINE-CHONDROITIN CAPS [id number] Estrella August RN citalopram 10 mg oral tablet (20 sources) Serotonin Reuptake Inhibitor Start: 07-23-2019 End: 12-11-2020 Start: 07-23-2019 End: 07-21-2020 take 1 tablet by mouth once daily Citalopram 10 mg tablet Discontinued 10 mg PO DAILY July 23, 2019 1:00am July 21, 2020 2:10pm depression Comment on above: Take 1 tablet by britt once daily. clopidogrel 75 mg oral tablet (20 sources) P2Y12 Platelet Inhibitor Start: 07-02-2015 End: 11-08-2024 Comment on above: Take 1 tablet by britt once daily. Compression stockings (7 sources) Start: [...] cyclobenzaprine hydrochlorid e 5 mg oral tablet (11 sources) Muscle Relaxant Start: 05-20-2024 End: 06-24-2024 dapagliflozin 5 mg oral tabl et (20 sources) Sodium-Glucose Cotransporter 2 Inhibitor Start: 04-12-2021 End: 05-04-2021 dextromethorphan hydrobromid e 2 mg/ml / guaiFENesin 40 mg/ml oral suspension (12 sources) Uncompetitive E-pcwcsf-L-aspartate Receptor Antagonist, Sigma-1 Agonist Start: 08-10-2023 End: [...] docusate sodium 50 mg / [facility] 8.6 mg oral tablet (20 sources) Start: [...] CAPS One tablet by mouth daily DUTASTERIDE [id number] David Ashton MD fludrocortisone acetate 0.1 mg oral tablet (20 sources) Start: 01-04-2024 End: 10-23-2024 Start: 01-04-2024 End: 03-28-2024 take 1 tablet by mouth three times weekly Fludrocortisone 0.1 mg tablet Discontinued 0.1 mg PO 3 TIMES A WEEK 14 January 04, 2024 12:00am March 28, 2024 6:25pm 60 actuat fluticasone propionate 0.23 mg/actuat / salmeterol 0.021 mg/actuat metered dose inhaler (16 sources) Corticosteroid, beta2-Adrenergic Agonist Start: 02-08-2016 End: 02-08-2016 ADVAIR DISKUS 250-50 MCG/DOSE AEPB Take 2 puffs every 12 hours FLUTICASONE-SALMETEROL [id number] Americo Nazario DO Start: 02-08-2016 End: 03-21-2016 ADVAIR HFA 230-21 MCG/ACT AE RO Take 1 puff twice daily FLUTICASONE-SALMETEROL [id number] Americo Nazario DO Start: 02-08-2016 End: 02-08-2016 ADVAIR HFA 230-21 MCG/ACT AE RO 2 puffs twice daily FLUTICASONE-SALMETEROL [id number] Americoyarelis Nazario DO Start: 10-15-2015 End: 02-08-2016 ADVAIR DISKUS 100-50 MCG/DOS E AEPB Take as Directed FLUTICASONE-SALMETEROL [id number] Americo Nazario DO furosemide 40 mg oral tablet (20 sources) Loop Diuretic Start: 08-31-2015 End: 12-23-2024 Start: 08-31-2015 FUROSEMIDE 40 MG TABS One tablet by mouth twice daily X 3 days then once daily FUROSEMIDE [id number] Estrella August RN Start: 08-06-2015 End: 08-27-2015 take 1 tablet by mouth once daily LASIX 40 MG TABS One tablet by mouth daily FUROSEMIDE [id number] Audelia Espinoza PA-C Start: 02-25-2011 End: 06-21-2012 take 1 tablet by mouth once daily LASIX 40 MG TABS One tablet by mouth daily FUROSEMIDE [id number] David Ashton MD Comment on above: Take 40 mg by mouth once daily. glimepiride 2 mg oral tablet (2 sources) Sulfonylurea Start: 06-25-19 14 take 1 tablet by mouth twice daily GLIMEPIRIDE 2 MG TABS One tablet by mouth twice daily GLIMEPIRIDE [id number] David Ashton MD glipiZIDE 5 mg oral tablet (4 sources) Sulfonylurea Start: 06-25-19 14 End: 06-16-20 15 take 1 tablet by mouth once daily GLIPIZIDE 5 MG TABS One tablet by mouth daily GLIPIZIDE [id number] Audelia Espinoza PA-C Handi cap Placard (20 [...] UNIT/ML SOLN Take as directed INSULIN DETEMIR [id number] David Ashton MD insulin glargine 100 unt/ml injectable solution (4 sources) Insulin Analogue Start: 10-28-2010 End: 06-21-2012 take 30 [IU] by subcutaneous injection at bedtime LANTUS 100 UNIT/ML SOLN 30 units SQ at bedtime INSULIN GLARGINE [id number] Paula Bazzi 3 ml insulin lispro 100 [...] SQ per sliding scale INSULIN LISPRO (HUMAN) [id number] Paula Bazzi INSULIN GLULISINE SOLN (6 sources) Insulin Analogue Start: 06-21-2012 APIDRA SOLN P er sliding scale twice daily if blood glucose is greater than 140 INSULIN GLULISINE SOLN [id number] David Ashton MD Start: 06-21-2012 End: 06-25-2013 APIDRA SOLN Per sliding scal e twice daily if blood glucose is greater than 140 INSULIN GLULISINE SOLN [id number] David Ashton MD Start: 02-25-2011 APIDRA SOLN Pe r sliding scale INSULIN GLULISINE SOLN [id number] Paula Bazzi 24 hr isosorbide mononitrate 30 mg extended release oral tablet (20 sources) Nitrate Vasodilator Start: 04-19-2018 End: 04-01-2024 Comment on above: Take 1 tablet by britt th once daily. lisinopril 10 mg oral tablet (6 sources) Angiotensin Converting Enzyme Inhibitor Start: 05-29-2014 End: 02-23-2017 take 1 tablet by mouth once daily LISINOPRIL 10 MG TABS One tablet by mouth daily LISINOPRIL [id number] David Ashton MD loratadine 10 mg oral [...] One tablet by mouth daily LOSARTAN POTASSIUM [id number] David Ashton MD Comment on above: Take [...] by mouth three times daily MAGNESIUM OXIDE [id number] David Ashton MD melatonin 10 mg sublingual [...] tablet by mouth daily HOLD METOPROLOL TARTRATE [id number] David Ashton MD Start: 07-02-2015 take 0.5 tablet by [facility] twice daily METOPROLOL TARTRATE 25 MG TABS 1/2 tablet by mouth twice daily METOPROLOL TARTRATE [id number] Estrella August RN naproxen 500 mg oral tablet (20 sources) Nonsteroidal Anti-inflammatory Drug Start: 04-19-2018 End: 06-13-2018 Start: 03-11-2016 End: 09-06-2017 Start: 03-11-2016 End: 09-06-2017 take 440 mg by mouth twice daily Naproxen Sodium Discontinued 440 MG PO TWICE A DAY March 11, 2016 12:00am September 06, 2017 1:34pm Start: 06-25-2013 take 2 tablets by mo [facility] once daily ALEVE 220 MG TABS Two tablets by mouth daily NAPROXEN SODIUM [id number] David Ashton MD Start: 06-21-2012 take 1 tablet by britt twice daily NAPROSYN 500 MG TABS One tablet by mouth twice daily NAPROXEN [id number] David Ashton MD Start: 10-28-2010 ALEVE 220 MG T ABS PRN NAPROXEN SODIUM [id number] David Ashton MD oxyCODONE hydrochloride 5 mg [...] Take 1 tablet by britt once daily. polysaccharide iron complex 150 mg oral capsule (20 sources) Start: 02-19-2020 End: 07-21-2020 potassium,chelated 99 mg oral tablet (8 sources) Start: 05-29-2014 End: 06-16-2015 take 1 tablet by mouth once daily as needed POTASSIUM 99 MG TABS One tablet by mouth daily as needed POTASSIUM [id number] David Ashton MD Start: 02-25-2011 End: 06-21-2012 take 2 tablets by mouth once daily POTASSIUM 99 MG TABS Two tablets by mouth daily POTASSIUM [id number] Paula Bazzi pravastatin sodium 20 mg ora l tablet (20 sources) HMG-CoA Reductase Inhibitor Start: 06-21-2013 End: 07-23-2024 Comment on above: Take 1 tablet by britt once daily. psyllium 3400 mg powder for [...] 2020 12:00am February 19, 2020 9:27pm [facility] 8.6 mg oral tablet (20 sources) Start: [...] TABS One tablet by mouth daily VALSARTAN [id number] Paula Bazzi vitamin d 1000 unt oral tablet (4 sources) Start: 10-28-2010 take 1 tablet by mouth twice daily VITAMIN D 1000 UNIT TABS One tablet by mouth twice daily CHOLECALCIFEROL [id number] Paula Bzazi Start: 10-28-2010 take 5 tablets by mouth once V ITAMIN D 1000 UNIT TABS 5000 IU One tablet by mouth daily CHOLECALCIFEROL [id number] David Ashton MD Problems Active Problems Problem Classification Problem Date Documented Date Episodic/Chronic Abdominal pain (20 sources) Right flank pain; Translations: [Unspecified abdominal pain] Onset: 08-03-2006 Resolved: 12-22-2014 05-09-2017 Episodic Acquired foot deformities (14 sources) Foot-drop; Translations: [Foot drop, left foot] 01-04-2024 Episodic Acute and unspecified renal failure (12 sources) Hnlbh-gk-igdruox renal failure; Translations: [Acute kidney failure, unspecified] 06-15-2024 Episodic Acute bronchitis (13 sources) Acute bronchitis; Translations: [Acute bronchitis, unspecified] [...] Complications of surgical procedures or medical care (15 sources) Insulin lipohypertrophy; Translations: [Other complications following infusion, transfusion and therapeutic injection, initial encounter] 04-21-2022 Episodic Conduction disorders (20 sources) Right bundle branch block AND left anterior fascicular block; Translations: [Bifascicular block] Onset: 06-17-2024 Chronic Coronary atherosclerosis and other heart disease (20 sources) Coronary arteriosclerosis; Translations: [Atherosclerotic heart disease of [place] coronary artery without angina pectoris] Onset: 10-28-2010 [...] anemia, unspecified] Episodic Deficiency and other anemia (11 sources) Chronic anemia; Translations: [Anemia, unspecified] 12-27-2023 [...] unspecified] Onset: 02-16-2010 02-16-2010 Chronic Other aftercare (11 sources) Long-term current use of anticoagulant; Translations: [terminal gauger (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 of anticoagulants] 12-27-2023 Episodic Other aftercare (11 sources) Surgical follow-up; Translations: [Encounter for removal of sutures] 12-28-2023 Episodic Other and ill-defined cerebrovascular disease (20 sources) 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 disease; Translations: [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 disease, unspecified] 04-11-2022 Chronic Other and ill-defined cerebrovascular disease (15 sources) 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 disease, unspecified; Translations: [Unspecified cerebrovascular disease] Chronic Other circulatory disease (14 sources) Orthostatic hypotension; Translations: [Orthostatic hypotension] 08-03-2024 Episodic Other circulatory disease (11 sources) History of cerebrovascular accident; Translations: [Personal [...] leg] 02-29-2020 Episodic Other connective tissue disease (14 sources) Swelling of lower limb; Translations: [Other [...] toe(s)] 07-31-2023 Episodic Other connective tissue disease (11 sources) Pain in upper limb; Translations: [Pain in right arm] 05-20-2024 Episodic Other connective tissue disease (1 source) Pain in left toe(s); Translations: [Pain in toe of left foot] Onset: 12-13-2024 Episodic Other connective tissue disease (1 source) Pain in right toe(s); Translations: [Pain in toe of right foot] Onset: 12-13-2024 Episodic Other connective tissue disease (4 sources) Recurrent falls ; Translations: [Repeated falls] 01-06-2025 Episodic Other diseases of veins and lymphatics (1 source) Vascular insufficiency; Translations: [Venous insufficiency (chronic) (peripheral)] 09-06-2024 Episodic Other endocrine disorders (11 sources) Hypoglycemia; Translations: [Hypoglycemia, unspecified] 06-24-2024 Chronic [...] Onset: 12-31-2024 Episodic Other lower respiratory disease (6 sources) Dyspnea at rest; Translations: [Shortness of [...] Onset: 06-06-2024 Chronic Other nervous system disorders (11 sources) Carpal tunnel syndrome of right wrist; Translations: [Carpal tunnel syndrome, right upper limb] 11-20-2023 Chronic Other nervous system disorders (13 sources) Abnormal gait; Translations: [Unspecified abnormalities of gait and mobility] 10-10-2022 Episodic Other nervous system disorders (1 source) Unspecified abnormalities of gait and mobility; Translations: [Abnormality of gait] 10-10-2022 Episodic Other non-traumatic joint disorders (20 sources) Hip pain; Translations: [Pain in left hip] 07-18-2020 Episodic Other non-traumatic joint disorders (13 sources) Pain in left shoulder; Translations: [Left [...] Chronic Other nutritional; endocrine; and metabolic disorders (11 sources) Body mass index 30+ - obesity; [...] cords] 07-18-2020 Episodic Other upper respiratory disease (3 sources) Bleeding from nose; Translations: [Epistaxis] 12-31-2024 Episodic Other upper respiratory infections (20 sources) Upper respiratory infection; Translations: [Acute upper respiratory infection, unspecified] Onset: 12-07-2016 12-07-2016 Episodic Otitis media and related conditions (12 sources) Acute left otitis media; Translations: [Otitis [...] caused by tuberculosis or sexually transmitted disease) (20 sources) Pneumonia; Translations: [Pneumonia, unspecified organism] Onset: [...] Onset: 10-09-2013 10-10-2022 Episodic Superficial injury; contusion (5 sources) Contusion of face; Translations: [Contusion of other part of head, initial encounter] 12-31-2024 Episodic Syncope (14 sources) Vasovagal syncope; Translations: [Syncope and collapse] Onset: 06-17-2024 06-24-2024 Episodic Thyroid disorders (20 sources) Hypothyroidism; Translations: [Hypothyroidism, unspecified] Onset: 08-21-2010 08-21-2010 Chronic Transient cerebral ischemia (12 sources) Transient cerebral ischemia; Translations: [Transient cerebral [...] (2 sources) Long-term drug therapy; Translations: [Other alf (current) drug therapy] Onset: 10-28-2010 10-28-2010 Unclassified (20 sources) Age AND/OR growth finding; Translations: [65 years of age or older] 03-16-2021 Unclassified (1 source) Obesity, class 2; 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, class 2] Onset: 12-31-2024 Unclassified (1 source) Parkinsonism, unspecified; Translations: [Parkinsonism, unspecified] Onset: 06-06-2024 Urinary tract infections (13 sources) Urinary tract infectious disease; Translations: [Urinary [...] 12-22-2014 12-22-2014 Episodic Other aftercare (1 source) residential (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 of insulin; Translations: [terminal gauger (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 of insulin] Onset: 06-17-2024 Episodic [...] Test Name Value Interpretation Reference Range Facility Absolute lymphocyte countOrd ered By: Derick Sorenson on 01-07-2025 Lymphocytes Auto (Unsp spec) [#/Vol] 0.70 10*3/uL Low 0.83-4.51 [facility] Activated partial thrombopla stin time (aPTT) in platelet poor plasma by coagulation aOrdered By: Derick Sorenson on 01-07-2025 aPTT Coag (PPP) [Time] 29.1 s 24.1-36.2 [facility] Anion gap in Serum or Plasma Ordered By: Derick Sorenson on 01-07-2025 Anion gap [Moles/Vol] 14 mmol/L 5-15 [facility] Automated lymphocyte count a s percentage of total leukocytesOrdered By: Derick Sorenson on 01-07-2025 Lymphocytes/100 WBC Auto (Unsp spec) 10.0 % Low 19-41 [facility] BUN/creatinine ratioOrdered By: Derick Sorenson on 01-07-2025 Urea nitrogen/Creatinine [Mass ratio] 13.3 mg/mg 10-20 [facility] Basophil percentageOrdered B y: Derick Sorenson on 01-07-2025 Basophils/100 WBC (Bld) 0.6 % 0-1 [facility] Bilirubin Test strip Ql (U)O rdered By: Derick Sorenson on 01-07-2025 Bilirubin Ql (U) Negative Negative [facility] Bilirubin, totalOrdered By: Derick Sorenson on 01-07-2025 Bilirubin [Mass/Vol] 0.55 mg/dL 0.00-1.30 [facility] Calcium oxalate crystals det ection in urine sediment by light microscopyOrdered By: Derick Sorenson on 01-07-2025 Calcium oxalate crystals LM Ql (Urine sed) RARE /hpf [facility] Carbon dioxide, total [Moles /volume] in Central venous bloodOrdered By: Derick Sorenson on 01-07-2025 CO2 [Moles/Vol] 26.2 mmol/L 21.0-32.0 [facility] Chloride assayOrdered By: Ottoniel Sorenson on 01-07-2025 Chloride [Moles/Vol] 95 mmol/L Low 98-108 [facility] Eosinophil percentageOrdered By: Derick Sorenson on 01-07-2025 Eosinophils/100 WBC (Bld) 1.4 % 0-5 [facility] Erythrocyte distribution wid th ratioOrdered By: Derick Sorenson on 01-07-2025 Erythrocyte distribution width (RBC) [Ratio] 13.7 % 11.6-14.6 [facility] Erythrocyte distribution wid th standard deviationOrdered By: Derick Sorenson on 01-07-2025 Erythrocyte distribution width (RBC) [Ratio] 50.0 fl High 35.1-43.9 [facility] Free K1Fjercpd By: Derick grady on 01-07-2025 Free T3 [Mass/Vol] 2.5 pg/mL 2.18-3.98 [facility] Glomerular filtration rate ( GFR) estimation/1.73 sq m using serum, plasma, or whole bOrdered By: Derick Sorenson 01-07-2025 GFR/1.73 sq M.predicted among non-blacks MDRD (S/P/Bld) [Vol rate/Area] 38 mL/min/{1.73_m2} Low >60 [facility] Hematocrit Auto (Bld) [Volum e fraction]Ordered By: Derick Sorenson 01-07-2025 Hematocrit (Bld) [Volume fraction] 38.6 % Low 40-54 [facility] Hemoglobin measurementOrdere d By: Derick Sorenson 01-07-2025 Hemoglobin (Bld) [Mass/Vol] 13.0 g/dL 13.0-16.5 [facility] Immature granulocytes/100 WB C Auto (Bld)Ordered By: Derick Sorenson 01-07-2025 Immature granulocytes/100 WBC (Bld) 0.900 % 0.0-0.9 [facility] Ketones Test strip Ql (U)Ord ered By: Derick Sorenson on 01-07-2025 Ketones Ql (U) 5 mg/dl High Negative [facility] MCV (mean corpuscular volume ) determinationOrdered By: Derick Sorenson on 01-07-2025 MCV (RBC) [Entitic vol] 97.5 fL High 80-94 [facility] Mean corpuscular hemoglobin (MCH) determinationOrdered By: Derick Sorenson on 01-07-2025 MCH (RBC) [Entitic mass] 32.8 pg High 27.0-32.0 [facility] Monocyte percentageOrdered B y: Derick Sorenson on 01-07-2025 Monocytes/100 WBC (Bld) 8.0 % 0-10 [facility] Mucus LM Ql (Urine sed)Order ed By: Derick Sorenson on 01-07-2025 Mucus Ql (Urine sed) 0 SEEN /hpf [facility] Neutrophil percentageOrdered By: Derick Sorenson on 01-07-2025 Neutrophils/100 WBC (Bld) 79.1 % High 47-70 [facility] Nitrite Test strip Ql (U)Ord ered By: Derick Sorenson on 01-07-2025 Nitrite Ql (U) Negative Negative [facility] No Panel InformationOrdered By: Derick Sorenson on 01-07-2025 22 U/L <38 [facility] Platelet countOrdered By: Ottoniel Sorenson on 01-07-2025 Platelets (Bld) [#/Vol] 226 10*3/uL 150-450 [facility] Potassium measurement (mass/ volume)Ordered By: Derick Sorenson on 01-07-2025 Potassium (Unsp spec) [Mass/Vol] 4.7 mmol/L 3.3-5.1 [facility] Protein Test strip Ql (U)Ord ered By: Derick Sorenson on 01-07-2025 Protein Ql (U) 30 mg/dl High Negative [facility] Prothrombin timeOrdered By: Derick Sorenson on 01-07-2025 PT Coag (PPP) [Time] 14.5 s 11.7-14.9 [facility] RBC Auto (Bld) [#/Vol]Ordere d By: Derick Sorenson on 01-07-2025 RBC (Bld) [#/Vol] 3.96 10*6/uL Low 4.6-6.2 [facility] Serum creatinine measurement (mass/volume)Ordered By: Derick Sorenson on 01-07-2025 Creatinine [Mass/Vol] 1.72 mg/dL High 0.70-1.20 [facility] Serum globulin measurementOr dered By: Derick Sorenson on 01-07-2025 Globulin (S) [Mass/Vol] 2.3 g/dL 2.2-4.2 [facility] Serum glucose measurement (m ass/volume)Ordered By: Derick Sorenson on 01-07-2025 Glucose [Mass/Vol] 124 mg/dL High 70-99 [facility] Serum or plasma alanine peña otransferase (ALT) measurementOrdered By: Derick Sorenson on 01-07-2025 ALT [Catalytic activity/Vol] U/L <47 [facility] Serum or plasma albumin odilon urement (mass/volume)Ordered By: Derick Sorenson on 01-07-2025 Albumin [Mass/Vol] 4.4 g/dL 3.4-4.8 [facility] Serum or plasma albumin/glob ulin mass ratioOrdered By: Derick Sorenson on 01-07-2025 Albumin/Globulin [Mass ratio] 1.9 {ratio} 0.9-2.4 [facility] Serum or plasma alkaline dequan sphatase measurementOrdered By: Derick Sorenson on 01-07-2025 ALP [Catalytic activity/Vol] 53 U/L 40-129 [facility] Serum or plasma calcium odilon urement (mass/volume)Ordered By: Derick Sorenson on 01-07-2025 Calcium [Mass/Vol] 9.8 mg/dL 7.6-11.0 [facility] Serum or plasma urea nitroge n measurement (mass/volume)Ordered By: Derick Sorenson on 01-07-2025 Urea nitrogen [Mass/Vol] 23 mg/dL High 4-19 [facility] Sodium levelOrdered By: Laisha Sorenson on 01-07-2025 Sodium [Moles/Vol] 135 mmol/L 133-145 [facility] Squamous epithelial cells de tection in urine sediment by light microscopyOrdered By: Derick Sorenson on 01-07-2025 Epithelial cells.squamous LM Ql (Urine sed) 0-5 SEEN /hpf 0-5 [facility] T4 freeOrdered By: Derick grady on 01-07-2025 Free T4 [Mass/Vol] 1.20 ng/dL 0.76-1.46 [facility] TSH DL <= 0.005 mIU/L QnOrde red By: Derick Sorenson on 01-07-2025 TSH Qn 1.110 uIU/mL 0.300-4.200 [facility] Total proteinOrdered By: Tyson Sorenson on 01-07-2025 Protein [Mass/Vol] 6.7 g/dL 5.9-8.4 [facility] Transitional cells detection in urine sediment by light microscopyOrdered By: Derick Sorenson on 01-07-2025 Transitional cells LM Ql (Urine sed) 0-5 SEEN /hpf 0-5 [facility] Urine clarityOrdered By: Tyson Sorenson on 01-07-2025 Clarity (U) Clear Clear [facility] Urine color determinationOrd ered By: Derick Sorenson on 01-07-2025 Color (U) Yellow Yellow [facility] Urine glucose detectionOrder ed By: Derick Sorenson on 01-07-2025 Glucose Ql (U) Normal mg/dl Normal [facility] Urine leukocyte esterase det ection by dipstickOrdered By: Derick Sorenson on 01-07-2025 Leukocyte esterase Test strip Ql (U) 500 /ul High Negative [facility] Urine pHOrdered By: Derick irvin on 01-07-2025 pH (U) 6.0 [pH] 5.0 - 8.0 [facility] Urine sediment bacteria coun t by microscopy (number/high power field)Ordered By: Derick Sorenson on 01-07-2025 Bacteria LM.HPF (Urine sed) [#/Area] 1 /[HPF] None Seen [facility] Urine specific gravity measu rementOrdered By: Derick Sorenson on 01-07-2025 Specific gravity (U) [Rel density] 1.015 1.002-1.030 [facility] Urine urobilinogen measureme ntOrdered By: Derick Sorenson on 01-07-2025 Urobilinogen Ql (U) Normal mg/dl Normal [facility] White blood cell (WBC) count Ordered By: Derick Sorenson on 01-07-2025 WBC (Bld) [#/Vol] 7.0 10*3/uL 4.4-11.0 [facility] White blood cell countOrdere d By: Derick Sorenson on 01-07-2025 White blood cell count 10-25 SEEN /hpf 0-5 [facility] Echo Completeon 01-02-2025 Echo Complete Normal [facility] Brain/Head without Contrasto n 12-31-2024 Brain/Head without Contrast Normal [facility] Emergency Department Summary on 12-31-2024 Emergency Department Summary Normal [facility] MR/BMS.IMBon 12-30-2024 MR/BMS.IMB Normal [facility] Cardiology Visit Reporton Cardiology Visit Report Normal [facility] Absolute lymphocyte countOrd ered By: Derick Sorenson on 12-21-2024 Lymphocytes Auto (Unsp spec) [#/Vol] 1.36 10*3/uL 0.83-4.51 [facility] Absolute neutrophil countOrd ered By: Derick Sorenson on 12-21-2024 Neutrophils (Bld) [#/Vol] 3.4 10*3/uL 2.0-7.7 [facility] Activated partial thrombopla stin time (aPTT) in platelet poor plasma by coagulation aOrdered By: Derick Sorenson on 12-21-2024 aPTT Coag (PPP) [Time] 29.7 s 24.1-36.2 [facility] Anion gap in Serum or Plasma Ordered By: Derick Sorenson on 12-21-2024 Anion gap [Moles/Vol] 14 mmol/L 5-15 [facility] Automated lymphocyte count a s percentage of total leukocytesOrdered By: Derick Sorenson on 12-21-2024 Lymphocytes/100 WBC Auto (Unsp spec) 24.4 % 19-41 [facility] BUN/creatinine ratioOrdered By: Derick Sorenson on 12-21-2024 Urea nitrogen/Creatinine [Mass ratio] 9.8 mg/mg Low 10-20 [facility] Basic Metabolic Profile (BMP )on 12-21-2024 BUN/CRE 9.8 RATIO Low 10-20 [facility] Comment on above: Performed By: #### L 500.2500, L503.7505 ####[facility] [address] [place], [address] Calcium [Mass/Vol] 9.9 mg/dL Normal 7.6-11.0 [facility] Comment on above: Performed By: #### L 500.2500, L503.7505 ####[facility] [address] [place], [address] Chloride [Moles/Vol] 99 mmol/L Normal 98-108 [facility] Comment on above: Performed By: #### L 500.2500, L503.7505 ####[facility] [address] [place], [address] CO2 [Moles/Vol] 26.4 mmol/L Normal 21.0-32.0 [facility] Comment on above: Performed By: #### L 500.2500, L503.7505 ####[facility] [address] [place], [address] Creatinine [Mass/Vol] 1.46 mg/dL High 0.70-1.20 [facility] Comment on above: Performed By: #### L 500.2500, L503.7505 ####[facility] [address] [place], [address] ECRCL 38.29 ml/min Low 50-250 [facility] Comment on above: Performed By: #### L 500.2500, L503.7505 ####[facility] [address] [place], [address] GAP 14 Normal 5-15 [facility] Comment on above: Performed By: #### L 500.2500, L503.7505 ####[facility] [address] [place], [address] GFR/1.73 sq M.predicted among non-blacks MDRD (S/P/Bld) [Vol rate/Area] 46 mL/min/{1.73_m2} Low >60 [facility] Comment on above: Result Comment: mL/m in/1.73m2 CKD-EPI Creatinine Equation (2020) Performed By: #### L 500.2500, L503.7505 ####[facility] [address] [place], [address] Glucose [Mass/Vol] 63 mg/dL Low 70-99 [facility] Comment on above: Performed By: #### L 500.2500, L503.7505 ####[facility] [address] [place], [address] Potassium [Moles/Vol] 3.8 mmol/L Normal 3.3-5.1 [facility] Comment on above: Performed By: #### L 500.2500, L503.7505 ####[facility] [address] [place], [address] Sodium [Moles/Vol] 139 mmol/L Normal 133-145 [facility] Comment on above: Performed By: #### L 500.2500, L503.7505 ####[facility] [address] [place], [address] Urea nitrogen [Mass/Vol] 14 mg/dL Normal 4-19 [facility] Comment on above: Performed By: #### L 500.2500, L503.7505 ####[facility] [address] [place], [address] Basophil percentageOrdered B y: Derick Sorenson on 12-21-2024 Basophils/100 WBC (Bld) 0.9 % 0-1 [facility] CBC W/Diff, Automatedon 07-0 5-2025 Absolute Lymph 1.36 X10 3/uL Normal 0.83-4.51 [facility] Comment on above: Performed By: #### L 300.3900, L100.0100, L501.4021, L300.4310 ####[facility] [address] [place], [address] Absolute Neut 3.4 X10 3/uL Normal 2.0-7.7 [facility] Comment on above: Performed By: #### L 300.3900, L100.0100, L501.4021, L300.4310 ####[facility] [address] [place], [address] Basophils/100 WBC (Bld) 0.9 % Normal 0-1 [facility] Comment on above: Performed By: #### L 300.3900, L100.0100, L501.4021, L300.4310 ####[facility] [address] [place], [address] Eosinophils/100 WBC (Bld) 3.1 % Normal 0-5 [facility] Comment on above: Performed By: #### L 300.3900, L100.0100, L501.4021, L300.4310 ####[facility] [address] [place], [address] Erythrocyte distribution width (RBC) [Ratio] 14.1 % Normal 11.6-14.6 [facility] Comment on above: Performed By: #### L 300.3900, L100.0100, L501.4021, L300.4310 ####[facility] [address] [place], [address] Hematocrit (Bld) [Volume fraction] 40.5 % Normal 40-54 [facility] Comment on above: Performed By: #### L 300.3900, L100.0100, L501.4021, L300.4310 ####[facility] [address] [place], [address] Hemoglobin (Bld) [Mass/Vol] 13.9 g/dL Normal 13.0-16.5 [facility] Comment on above: Performed By: #### L 300.3900, L100.0100, L501.4021, L300.4310 ####[facility] [address] [place], [address] IG% 0.700 Normal 0.0-0.9 [facility] Comment on above: Result Comment: IG% - Immature Granulocytes (promyelocytes, myelocytes andmetamyelocytes) > 1% indicates that a LEFT SHIFT is Present. Performed By: #### L 300.3900, L100.0100, L501.4021, L300.4310 ####[facility] [address] [place], [address] Lymphocytes/100 WBC (Bld) 24.4 % Normal 19-41 [facility] Comment on above: Performed By: #### L 300.3900, L100.0100, L501.4021, L300.4310 ####[facility] [address] [place], [address] MCH (RBC) [Entitic mass] 33.2 pg High 27.0-32.0 [facility] Comment on above: Performed By: #### L 300.3900, L100.0100, L501.4021, L300.4310 ####[facility] [address] [place], [address] MCHC (RBC) [Mass/Vol] 34.3 g/dL Normal 32-36 [facility] Comment on above: Performed By: #### L 300.3900, L100.0100, L501.4021, L300.4310 ####[facility] [address] [place], [address] MCV (RBC) [Entitic vol] 96.7 fL High 80-94 [facility] Comment on above: Performed By: #### L 300.3900, L100.0100, L501.4021, L300.4310 ####[facility] [address] [place], [address] Monocytes/100 WBC (Bld) 10.8 % High 0-10 [facility] Comment on above: Performed By: #### L 300.3900, L100.0100, L501.4021, L300.4310 ####[facility] [address] [place], [address] Neutrophils/100 WBC (Bld) 60.1 % Normal 47-70 [facility] Comment on above: Performed By: #### L 300.3900, L100.0100, L501.4021, L300.4310 ####[facility] [address] [place], [address] Nucleated RBC (Bld) [#/Vol] 0 10*3/uL Normal 0-5 [facility] Comment on above: Performed By: #### L 300.3900, L100.0100, L501.4021, L300.4310 ####[facility] [address] [place], [address] Platelet mean volume (Bld) [Entitic vol] 9.1 fL Normal 6.2-12.0 [facility] Comment on above: Performed By: #### L 300.3900, L100.0100, L501.4021, L300.4310 ####[facility] [address] [place], [address] Platelets (Bld) [#/Vol] 211 10*3/uL Normal 150-450 [facility] Comment on above: Performed By: #### L 300.3900, L100.0100, L501.4021, L300.4310 ####[facility] [address] [place], [address] RBC (Bld) [#/Vol] 4.19 10*6/uL Low 4.6-6.2 [facility] Comment on above: Performed By: #### L 300.3900, L100.0100, L501.4021, L300.4310 ####[facility] [address] [place], [address] RDW SD 50.2 fl High 35.1-43.9 [facility] Comment on above: Performed By: #### L 300.3900, L100.0100, L501.4021, L300.4310 ####[facility] [address] [place], [address] WBC (Bld) [#/Vol] 5.6 10*3/uL Normal 4.4-11.0 [facility] Comment on above: Performed By: #### L 300.3900, L100.0100, L501.4021, L300.4310 ####[facility] [address] [place], [address] Carbon dioxide, total [Moles /volume] in Central venous bloodOrdered By: Derick Sorenson on 12-21-2024 CO2 [Moles/Vol] 26.4 mmol/L 21.0-32.0 [facility] Chest PA and Lateralon 12-21 Chest PA and Lateral Normal [facility] Chest without Contraston Chest without Contrast Normal [facility] Chloride assayOrdered By: Ottoniel Sorenson on 12-21-2024 Chloride [Moles/Vol] 99 mmol/L 98-108 [facility] Emergency Department Summary on 12-21-2024 Emergency Department Summary Normal [facility] Eosinophil percentageOrdered By: Derick Sorenson on 12-21-2024 Eosinophils/100 WBC (Bld) 3.1 % 0-5 [facility] Erythrocyte distribution wid th ratioOrdered By: Derick Sorenson on 12-21-2024 Erythrocyte distribution width (RBC) [Ratio] 14.1 % 11.6-14.6 [facility] Erythrocyte distribution wid th standard deviationOrdered By: Derick Sorenson on 12-21-2024 Erythrocyte distribution width (RBC) [Ratio] 50.2 fl High 35.1-43.9 [facility] Glomerular filtration rate ( GFR) estimation/1.73 sq m using serum, plasma, or whole bOrdered By: Derick Sorenson on 12-21-2024 GFR/1.73 sq M.predicted among non-blacks MDRD (S/P/Bld) [Vol rate/Area] 46 mL/min/{1.73_m2} Low >60 [facility] Comment on above: mL/min/1.73m2 CKD-EP I Creatinine Equation (2020) Hematocrit Auto (Bld) [Volum e fraction]Ordered By: Derick Sorenson on 12-21-2024 Hematocrit (Bld) [Volume fraction] 40.5 % 40-54 [facility] Hemoglobin measurementOrdere d By: Derick Sorenson on 12-21-2024 Hemoglobin (Bld) [Mass/Vol] 13.9 g/dL 13.0-16.5 [facility] Immature granulocytes/100 WB C Auto (Bld)Ordered By: Derick Sorenson on 12-21-2024 Immature granulocytes/100 WBC (Bld) 0.700 % 0.0-0.9 [facility] Comment on above: IG% - Immature Granu locytes (promyelocytes, myelocytes and metamyelocytes) > 1% indicates that a LEFT SHIFT is Present. International normalized rat io (INR) calculationOrdered By: Derick Sorenson on 12-21-2024 INR Coag (Bld) [Relative time] 1.1 {INR} [facility] L499.0042on 12-21-2024 Trop T High Sen 42 ng/L High <=22 [facility] Comment on above: Performed By: #### L 499.0042 ####[facility] [address] [place], [address] L499.0043on 12-21-2024 Trop T High Sen Normal <=22 [facility] Comment on above: Result Comment: Canc elled via OM: dr morgan Performed By: #### L 499.0043 ####[facility] [address] [place], [address] L501.4021on 12-21-2024 Trop T High Sen 44 ng/L High <=22 [facility] Comment on above: Performed By: #### L 300.3900, L100.0100, L501.4021, L300.4310 ####[facility] [address] [place], [address] L503.7505on 12-21-2024 Natriuretic peptide B (Bld) [Mass/Vol] 542 pg/mL Normal <=1800 [facility] Comment on above: Result Comment: Hear t Failure Unlikely: < 300 pg/mLHeart Failure Likely< 50 Years: > 450 pg/mL50-75 Years: > 900 pg/mL>75 Years: > 1800 pg/mL Performed By: #### L 500.2500, L503.7505 ####[facility] [address] [place], [address] MCV (mean corpuscular volume ) determinationOrdered By: Derick Sorenson on 12-21-2024 MCV (RBC) [Entitic vol] 96.7 fL High 80-94 [facility] Mean corpuscular hemoglobin (MCH) determinationOrdered By: Derick Sorenson on 12-21-2024 MCH (RBC) [Entitic mass] 33.2 pg High 27.0-32.0 [facility] Mean corpuscular hemoglobin concentration (MCHC) determinationOrdered By: Derick Sorenson on 12-21-2024 MCHC (RBC) [Mass/Vol] 34.3 g/dL 32-36 [facility] Mean platelet volume determi nationOrdered By: Derick Sorenson on 12-21-2024 Platelet mean volume (Bld) [Entitic vol] 9.1 fL 6.2-12.0 [facility] Monocyte percentageOrdered B y: Derick Sorenson on 07-05-2025 Monocytes/100 WBC (Bld) 10.8 % High 0-10 [facility] Natriuretic peptide.B prohor lam N-Terminal [Mass/volume] in Serum or PlasmaOrdered By: Derick Sorenson on 12-21-2024 Natriuretic peptide.B prohormone N-Terminal [Mass/Vol] 542 pg/mL <1800 [facility] Comment on above: Heart Failure Unlike ly: < 300 pg/mLHeart Failure Likely< 50 Years: > 450 pg/mL50-75 Years: > 900 pg/mL>75 Years: > 1800 pg/mL Neutrophil percentageOrdered By: Derick Sorenson on 12-21-2024 Neutrophils/100 WBC (Bld) 60.1 % 47-70 [facility] Nucleated red blood cell per centageOrdered By: Derick Sorenson on 12-21-2024 Nucleated RBC/100 WBC (Bld) [Ratio] 0 % 0-5 [facility] Partial Thromboplast Timeon 12-21-2024 aPTT Coag (Bld) [Time] 29.7 s Normal 24.1-36.2 [facility] Comment on above: Performed By: #### L 300.3900, L100.0100, L501.4021, L300.4310 ####[facility] [address] [place], [place], [id number] Platelet countOrdered By: Ottoniel Sorenson on 12-21-2024 Platelets (Bld) [#/Vol] 211 10*3/uL 150-450 [facility] Potassium measurement (mass/ volume)Ordered By: Derick Sorenson on 12-21-2024 Potassium (Unsp spec) [Mass/Vol] 3.8 mmol/L 3.3-5.1 [facility] Prothrombin Time w/INRon INR Coag (PPP) [Relative time] 1.1 {INR} Normal [facility] Comment on above: Performed By: #### L 300.3900, L100.0100, L501.4021, L300.4310 ####[facility] [address] [place], [address] PT Coag (PPP) [Time] 14.6 s Normal 11.7-14.9 [facility] Comment on above: Performed By: #### L 300.3900, L100.0100, L501.4021, L300.4310 ####[facility] [address] [place], [address] Prothrombin timeOrdered By: Derick Sorenson on 12-21-2024 PT Coag (PPP) [Time] 14.6 s 11.7-14.9 [facility] RBC Auto (Bld) [#/Vol]Ordere d By: Derick Sorenson on 12-21-2024 RBC (Bld) [#/Vol] 4.19 10*6/uL Low 4.6-6.2 [facility] Serum creatinine measurement (mass/volume)Ordered By: Derick Sorenson on 12-21-2024 Creatinine [Mass/Vol] 1.46 mg/dL High 0.70-1.20 [facility] Serum glucose measurement (m ass/volume)Ordered By: Derick Sorenson on 12-21-2024 Glucose [Mass/Vol] 63 mg/dL Low 70-99 [facility] Serum or plasma calcium odilon urement (mass/volume)Ordered By: Derick Sorenson on 12-21-2024 Calcium [Mass/Vol] 9.9 mg/dL 7.6-11.0 [facility] Serum or plasma urea nitroge n measurement (mass/volume)Ordered By: Derick Sorenson on 12-21-2024 Urea nitrogen [Mass/Vol] 14 mg/dL 4-19 [facility] Sodium levelOrdered By: Laisha Sorenson on 12-21-2024 Sodium [Moles/Vol] 139 mmol/L 133-145 [facility] Troponin T.cardiac [Mass/vol ume] in Serum or Plasma by High sensitivity methodOrdered By: Derick Sorenson on 12-21-2024 Troponin T.cardiac High sensitivity method [Mass/Vol] 42 ng/L High <22 [facility] Troponin T.cardiac High sensitivity method [Mass/Vol] 44 ng/L High <22 [facility] White blood cell (WBC) count Ordered By: Derick Sorenson on 12-21-2024 WBC (Bld) [#/Vol] 5.6 10*3/uL 4[facility]4-11[facility] ) BARRYOLMAN ([id number]) 1935 M Date Time Provider Department 12/13/24 [...] Objective: Patient presents to clinic ambulating in [facility] Vasc: DP and PT pulses are [...] by mout (more content not included)... Normal [facility] Chest PA and Lateralon 12-09 Chest PA and Lateral Normal [facility] MR/BMS.IMBon 12-09-2024 MR/BMS.IMB Normal [facility] Absolute lymphocyte countOrd ered By: Keron Maciel on 11-25-2024 Lymphocytes Auto (Unsp spec) [#/Vol] 0.98 10*3/uL 0.83-4.51 [facility] Absolute neutrophil countOrd ered By: Keron Maciel on 11-25-2024 Neutrophils (Bld) [#/Vol] 4.3 10*3/uL 2.0-7.7 [facility] Anion gap in Serum or Plasma Ordered By: Keron Maciel on 11-25-2024 Anion gap [Moles/Vol] 14 mmol/L 5- [facility] Automated lymphocyte count a s percentage of total leukocytesOrdered By: Keron Maciel on 11-25-2024 Lymphocytes/100 WBC Auto (Unsp spec) 15.9 % Low 19-41 [facility] BUN/creatinine ratioOrdered By: Keron Maciel on 11-25-2024 Urea nitrogen/Creatinine [Mass ratio] 13.8 mg/mg 10- [facility] Basic Metabolic Profile (BMP )on 11-25-2024 BUN/CRE 13.8 RATIO Normal - [facility] Comment on above: Performed By: #### L 500.2500, L503.7505, L100.0100 ####[facility] [address] [place], [address] Calcium [Mass/Vol] 10.1 mg/dL Normal 7.6-11.0 [facility] Comment on above: Performed By: #### L 500.2500, L503.7505, L100.0100 ####[facility] [address] [place], [address] Chloride [Moles/Vol] 101 mmol/L Normal 98-108 [facility] Comment on above: Performed By: #### L 500.2500, L503.7505, L100.0100 ####[facility] [address] [place], [address] CO2 [Moles/Vol] 24.3 mmol/L Normal 21.0-32.0 [facility] Comment on above: Performed By: #### L 500.2500, L503.7505, L100.0100 ####[facility] [address] [place], [address] Creatinine [Mass/Vol] 1.60 mg/dL High 0.70-1.20 [facility] Comment on above: Performed By: #### L 500.2500, L503.7505, L100.0100 ####[facility] [address] [place], [address] GAP 14 Normal 5-15 [facility] Comment on above: Performed By: #### L 500.2500, L503.7505, L100.0100 ####[facility] [address] [place], [address] GFR/1.73 sq M.predicted among non-blacks MDRD (S/P/Bld) [Vol rate/Area] 41 mL/min/{1.73_m2} Low >60 [facility] Comment on above: Result Comment: mL/m in/1.73m2 CKD-EPI Creatinine Equation (2020) Performed By: #### L 500.2500, L503.7505, L100.0100 ####[facility] [address] [place], [address] Glucose [Mass/Vol] 202 mg/dL High 70-99 [facility] Comment on above: Performed By: #### L 500.2500, L503.7505, L100.0100 ####[facility] [address] [place], [address] Potassium [Moles/Vol] 4.6 mmol/L Normal 3.3-5.1 [facility] Comment on above: Performed By: #### L 500.2500, L503.7505, L100.0100 ####[facility] [address] [place], [address] Sodium [Moles/Vol] 140 mmol/L Normal 133-145 [facility] Comment on above: Performed By: #### L 500.2500, L503.7505, L100.0100 ####[facility] [address] [place], [address] Urea nitrogen [Mass/Vol] 22 mg/dL High 4-19 [facility] Comment on above: Performed By: #### L 500.2500, L503.7505, L100.0100 ####[facility] [address] [place], [address] Basophil percentageOrdered B y: Keron Maciel on 11-25-2024 Basophils/100 WBC (Bld) 0.6 % 0-1 [facility] CBC W/Diff, Automatedon Absolute Lymph 0.98 X10 3/uL Normal 0.83-4.51 [facility] Comment on above: Performed By: #### L 500.2500, L503.7505, L100.0100 ####[facility] [address] [place], [address] Absolute Neut 4.3 X10 3/uL Normal 2.0-7.7 [facility] Comment on above: Performed By: #### L 500.2500, L503.7505, L100.0100 ####[facility] [address] [place], [address] Basophils/100 WBC (Bld) 0.6 % Normal 0-1 [facility] Comment on above: Performed By: #### L 500.2500, L503.7505, L100.0100 ####[facility] [address] [place], [address] Eosinophils/100 WBC (Bld) 1.9 % Normal 0-5 [facility] Comment on above: Performed By: #### L 500.2500, L503.7505, L100.0100 ####[facility] [address] [place], [address] Erythrocyte distribution width (RBC) [Ratio] 14.6 % Normal 11.6-14.6 [facility] Comment on above: Performed By: #### L 500.2500, L503.7505, L100.0100 ####[facility] [address] [place], [address] Hematocrit (Bld) [Volume fraction] 39.6 % Low 40-54 [facility] Comment on above: Performed By: #### L 500.2500, L503.7505, L100.0100 ####[facility] [address] [place], [address] Hemoglobin (Bld) [Mass/Vol] 13.5 g/dL Normal 13.0-16.5 [facility] Comment on above: Performed By: #### L 500.2500, L503.7505, L100.0100 ####[facility] [address] [place], [address] IG% 2.100 High 0.0-0.9 [facility] Comment on above: Result Comment: IG% - Immature Granulocytes (promyelocytes, myelocytes andmetamyelocytes) > 1% indicates that a LEFT SHIFT is Present. Performed By: #### L 500.2500, L503.7505, L100.0100 ####[facility] [address] [place], [address] Lymphocytes/100 WBC (Bld) 15.9 % Low 19-41 [facility] Comment on above: Performed By: #### L 500.2500, L503.7505, L100.0100 ####[facility] [address] [place], [address] MCH (RBC) [Entitic mass] 33.4 pg High 27.0-32.0 [facility] Comment on above: Performed By: #### L 500.2500, L503.7505, L100.0100 ####[facility] [address] [place], [address] MCHC (RBC) [Mass/Vol] 34.1 g/dL Normal 32-36 [facility] Comment on above: Performed By: #### L 500.2500, L503.7505, L100.0100 ####[facility] [address] [place], [address] MCV (RBC) [Entitic vol] 98.0 fL High 80-94 [facility] Comment on above: Performed By: #### L 500.2500, L503.7505, L100.0100 ####[facility] [address] [place], [address] Monocytes/100 WBC (Bld) 9.7 % Normal 0-10 [facility] Comment on above: Performed By: #### L 500.2500, L503.7505, L100.0100 ####[facility] [address] [place], [address] Neutrophils/100 WBC (Bld) 69.8 % Normal 47-70 [facility] Comment on above: Performed By: #### L 500.2500, L503.7505, L100.0100 ####[facility] [address] [place], [address] Nucleated RBC (Bld) [#/Vol] 0 10*3/uL Normal 0-5 [facility] Comment on above: Performed By: #### L 500.2500, L503.7505, L100.0100 ####[facility] [address] [place], [address] Platelet mean volume (Bld) [Entitic vol] 9.6 fL Normal 6.2-12.0 [facility] Comment on above: Performed By: #### L 500.2500, L503.7505, L100.0100 ####[facility] [address] [place], [address] Platelets (Bld) [#/Vol] 230 10*3/uL Normal 150-450 [facility] Comment on above: Performed By: #### L 500.2500, L503.7505, L100.0100 ####[facility] [address] [place], [address] RBC (Bld) [#/Vol] 4.04 10*6/uL Low 4.6-6.2 [facility] Comment on above: Performed By: #### L 500.2500, L503.7505, L100.0100 ####[facility] [address] [place], [address] RDW SD 53.1 fl High 35.1-43.9 [facility] Comment on above: Performed By: #### L 500.2500, L503.7505, L100.0100 ####[facility] [address] [place], [address] WBC (Bld) [#/Vol] 6.2 10*3/uL Normal 4.4-11.0 [facility] Comment on above: Performed By: #### L 500.2500, L503.7505, L100.0100 ####[facility] [address] [place], [address] Carbon dioxide, total [Moles /volume] in Central venous bloodOrdered By: Keron Maciel on 11-25-2024 CO2 [Moles/Vol] 24.3 mmol/L 21.0-32.0 [facility] Chest PA and Lateralon 11-25 Chest PA and Lateral Normal [facility] Chloride assayOrdered By: Madeleine Maciel on 11-25-2024 Chloride [Moles/Vol] 101 mmol/L 98-108 [facility] Eosinophil percentageOrdered By: Keron Maciel on 11-25-2024 Eosinophils/100 WBC (Bld) 1.9 % 0-5 [facility] Erythrocyte distribution wid th ratioOrdered By: Keron Maciel on 11-25-2024 Erythrocyte distribution width (RBC) [Ratio] 14.6 % 11.6-14.6 [facility] Erythrocyte distribution wid th standard deviationOrdered By: Keron Maciel on 11-25-2024 Erythrocyte distribution width (RBC) [Ratio] 53.1 fl High 35.1-43.9 [facility] Glomerular filtration rate ( GFR) estimation/1.73 sq m using serum, plasma, or whole bOrdered By: Keron Maciel on 11-25-2024 GFR/1.73 sq M.predicted among non-blacks MDRD (S/P/Bld) [Vol rate/Area] 41 mL/min/{1.73_m2} Low >60 [facility] Comment on above: mL/min/1.73m2 CKD-EP I Creatinine Equation (2020) Hematocrit Auto (Bld) [Volum e fraction]Ordered By: Keron Maciel on 11-25-2024 Hematocrit (Bld) [Volume fraction] 39.6 % Low 40-54 [facility] Hemoglobin measurementOrdere d By: Keron Maciel on 11-25-2024 Hemoglobin (Bld) [Mass/Vol] 13.5 g/dL 13.0-16.5 [facility] Immature granulocytes/100 WB C Auto (Bld)Ordered By: Keron Maciel on 11-25-2024 Immature granulocytes/100 WBC (Bld) 2.100 % High 0.0-0.9 [facility] Comment on above: IG% - Immature Granu locytes (promyelocytes, myelocytes and metamyelocytes) > 1% indicates that a LEFT SHIFT is Present. L503.7505on 11-25-2024 Natriuretic peptide B (Bld) [Mass/Vol] 502 pg/mL Normal <=1800 [facility] Comment on above: Result Comment: Hear t Failure Unlikely: < 300 pg/mLHeart Failure Likely< 50 Years: > 450 pg/mL50-75 Years: > 900 pg/mL>75 Years: > 1800 pg/mL Performed By: #### L 500.2500, L503.7505, L100.0100 ####[facility] [address] [place], [place], [id number] MCV (mean corpuscular volume ) determinationOrdered By: Keron Maciel on 11-25-2024 MCV (RBC) [Entitic vol] 98.0 fL High 80-94 [facility] MR/BMS.IMBon 11-25-2024 MR/BMS.IMB Normal [facility] Mean corpuscular hemoglobin (MCH) determinationOrdered By: Keron Maciel on 11-25-2024 MCH (RBC) [Entitic mass] 33.4 pg High 27.0-32.0 [facility] Mean corpuscular hemoglobin concentration (MCHC) determinationOrdered By: Keron Maciel on 11-25-2024 MCHC (RBC) [Mass/Vol] 34.1 g/dL 32-36 [facility] Mean platelet volume determi nationOrdered By: Keron Maciel on 11-25-2024 Platelet mean volume (Bld) [Entitic vol] 9.6 fL 6.2-12.0 [facility] Monocyte percentageOrdered B y: Keron Maciel on 11-25-2024 Monocytes/100 WBC (Bld) 9.7 % 0-10 [facility] Natriuretic peptide.B prohor lam N-Terminal [Mass/volume] in Serum or PlasmaOrdered By: Keron Maciel on 11-25-2024 Natriuretic peptide.B prohormone N-Terminal [Mass/Vol] 502 pg/mL <1800 [facility] Comment on above: Heart Failure Unlike ly: < 300 pg/mLHeart Failure Likely< 50 Years: > 450 pg/mL50-75 Years: > 900 pg/mL>75 Years: > 1800 pg/mL Neutrophil percentageOrdered By: Keron Maciel on 11-25-2024 Neutrophils/100 WBC (Bld) 69.8 % 47-70 [facility] Nucleated red blood cell per centageOrdered By: Keron Maciel on 11-25-2024 Nucleated RBC/100 WBC (Bld) [Ratio] 0 % 0-5 [facility] Platelet countOrdered By: Madeleine Maciel on 11-25-2024 Platelets (Bld) [#/Vol] 230 10*3/uL 150-450 [facility] Potassium measurement (mass/ volume)Ordered By: Keron Maciel on 11-25-2024 Potassium (Unsp spec) [Mass/Vol] 4.6 mmol/L 3.3-5.1 [facility] RBC Auto (Bld) [#/Vol]Ordere d By: Keron Maciel on 11-25-2024 RBC (Bld) [#/Vol] 4.04 10*6/uL Low 4.6-6.2 [facility] Serum creatinine measurement (mass/volume)Ordered By: Keron Maciel on 11-25-2024 Creatinine [Mass/Vol] 1.60 mg/dL High 0.70-1.20 [facility] Serum glucose measurement (m ass/volume)Ordered By: Keron Maciel on 11-25-2024 Glucose [Mass/Vol] 202 mg/dL High 70-99 [facility] Serum or plasma calcium odilon urement (mass/volume)Ordered By: Keron Maciel on 11-25-2024 Calcium [Mass/Vol] 10.1 mg/dL 7.6-11.0 [facility] Serum or plasma urea nitroge n measurement (mass/volume)Ordered By: Keron Maciel on 11-25-2024 Urea nitrogen [Mass/Vol] 22 mg/dL High 4-19 [facility] Sodium levelOrdered By: Beatrice Maciel on 11-25-2024 Sodium [Moles/Vol] 140 mmol/L 133-145 [facility] White blood cell (WBC) count Ordered By: Keron Maciel on 11-25-2024 WBC (Bld) [#/Vol] 6.2 10*3/uL 4.4-11.0 [facility] Urine Cultureon 11-22-2024 URC Normal [facility] Comment on above: Performed By: #### M 100.2200 ####[facility] [address] [place], [address] Basic Metabolic Profile (BMP )on 11-20-2024 BUN/CRE 14.4 RATIO Normal 10-20 [facility] Comment on above: Performed By: #### L 503.7505, L100.0100, L501.9520, L501.5200, L500.2500 ####[facility] [address] [place], [address] Calcium [Mass/Vol] 10.0 mg/dL Normal 7.6-11.0 [facility] Comment on above: Performed By: #### L 503.7505, L100.0100, L501.9520, L501.5200, L500.2500 ####[facility] [address] [place], [address] Chloride [Moles/Vol] 97 mmol/L Low 98-108 [facility] Comment on above: Performed By: #### L 503.7505, L100.0100, L501.9520, L501.5200, L500.2500 ####[facility] [address] [place], [address] CO2 [Moles/Vol] 27.2 mmol/L Normal 21.0-32.0 [facility] Comment on above: Performed By: #### L 503.7505, L100.0100, L501.9520, L501.5200, L500.2500 ####[facility] [address] [place], [address] Creatinine [Mass/Vol] 1.77 mg/dL High 0.70-1.20 [facility] Comment on above: Performed By: #### L 503.7505, L100.0100, L501.9520, L501.5200, L500.2500 ####[facility] [address] [place], [address] ECRCL 30.88 ml/min Low 50-250 [facility] Comment on above: Performed By: #### L 503.7505, L100.0100, L501.9520, L501.5200, L500.2500 ####[facility] [address] [place], [address] GAP 13 Normal 5-15 [facility] Comment on above: Performed By: #### L 503.7505, L100.0100, L501.9520, L501.5200, L500.2500 ####[facility] [address] [place], [address] GFR/1.73 sq M.predicted among non-blacks MDRD (S/P/Bld) [Vol rate/Area] 37 mL/min/{1.73_m2} Low >60 [facility] Comment on above: Result Comment: mL/m in/1.73m2 CKD-EPI Creatinine Equation (2020) Performed By: #### L 503.7505, L100.0100, L501.9520, L501.5200, L500.2500 ####[facility] [address] [place], [address] Glucose [Mass/Vol] 102 mg/dL High 70-99 [facility] Comment on above: Performed By: #### L 503.7505, L100.0100, L501.9520, L501.5200, L500.2500 ####[facility] [address] [place], [address] Potassium [Moles/Vol] 4.9 mmol/L Normal 3.3-5.1 [facility] Comment on above: Result Comment: Hemo lysis present, Results??could be affected.?? Performed By: #### L 503.7505, L100.0100, L501.9520, L501.5200, L500.2500 ####[facility] [address] [place], [address] Sodium [Moles/Vol] 138 mmol/L Normal 133-145 [facility] Comment on above: Performed By: #### L 503.7505, L100.0100, L501.9520, L501.5200, L500.2500 ####[facility] [address] [place], [address] Urea nitrogen [Mass/Vol] 26 mg/dL High 4-19 [facility] Comment on above: Performed By: #### L 503.7505, L100.0100, L501.9520, L501.5200, L500.2500 ####[facility] [address] [place], [address] L503.7505on 11-20-2024 Natriuretic peptide B (Bld) [Mass/Vol] 521 pg/mL Normal <=1800 [facility] Comment on above: Result Comment: Hear t Failure Unlikely: < 300 pg/mLHeart Failure Likely< 50 Years: > 450 pg/mL50-75 Years: > 900 pg/mL>75 Years: > 1800 pg/mL Performed By: #### L 503.7505, L100.0100, L501.9520, L501.5200, L500.2500 ####[facility] [address] [place], [address] M100.678on 11-20-2024 M100.678 SARS-CoV-2 (COVID 19 ) Negative INFLUENZA A Negative INFLUENZA B Negative RSV PCR Negative Normal [facility] Comment on above: Performed By: #### M 100.678, L400.0001 ####[facility] [address] [place], [address] Magnesiumon 11-20-2024 Magnesium [Mass/Vol] 2.1 mg/dL Normal 1.5-2.2 [facility] Comment on above: Performed By: #### L 503.7505, L100.0100, L501.9520, L501.5200, L500.2500 ####[facility] [address] [place], [address] Thyroid Stim Hormone (TSH)on 11-20-2024 TSH 1.790 uIU/mL Normal 0.300-4.200 [facility] Comment on above: Performed By: #### L 503.7505, L100.0100, L501.9520, L501.5200, L500.2500 ####[facility] [address] [place], [address] Urinalysis, Completeon 11-20 BACTERIA 2+ /hpf Normal None Seen [facility] Comment on above: Order Comment: LOIS CTOR TO SPECIFY Performed By: #### M 100.678, L400.0001 ####[facility] [address] [place], [address] WBC 50-100 SEEN Normal 0-5 [facility] Comment on above: Order Comment: LOIS CTOR TO SPECIFY Performed By: #### M 100.678, L400.0001 ####[facility] [address] [place], [address] 12 Lead EKGon 11-19-2024 12 Lead EKG Normal [facility] Absolute lymphocyte countOrd ered By: Helio Corrales on 11-19-2024 Lymphocytes Auto (Unsp spec) [#/Vol] 1.46 10*3/uL 0.83-4.51 [facility] Absolute neutrophil countOrd ered By: Helio Corrales on 11-19-2024 Neutrophils (Bld) [#/Vol] 4.8 10*3/uL 2.0-7.7 [facility] Anion gap in Serum or Plasma Ordered By: Helio Corrales on 11-19-2024 Anion gap [Moles/Vol] 13 mmol/L 5-15 [facility] Automated lymphocyte count a s percentage of total leukocytesOrdered By: Helio Corrales on 11-19-2024 Lymphocytes/100 WBC Auto (Unsp spec) 20.0 % 19-41 [facility] BUN/creatinine ratioOrdered By: Helio Corrales on 11-19-2024 Urea nitrogen/Creatinine [Mass ratio] 14.4 mg/mg 10-20 [facility] Basophil percentageOrdered B y: Helio Corrales on 11-19-2024 Basophils/100 WBC (Bld) 1.0 % 0-1 [facility] Bilirubin Test strip Ql (U)O rdered By: Helio Corrales on 11-19-2024 Bilirubin Ql (U) Negative Negative [facility] CBC W/Diff, Automatedon Absolute Lymph 1.46 X10 3/uL Normal 0.83-4.51 [facility] Comment on above: Performed By: #### L 503.7505, L100.0100, L501.9520, L501.5200, L500.2500 ####[facility] [address] [place], [address] Absolute Neut 4.8 X10 3/uL Normal 2.0-7.7 [facility] Comment on above: Performed By: #### L 503.7505, L100.0100, L501.9520, L501.5200, L500.2500 ####[facility] [address] [place], [address] Basophils/100 WBC (Bld) 1.0 % Normal 0-1 [facility] Comment on above: Performed By: #### L 503.7505, L100.0100, L501.9520, L501.5200, L500.2500 ####[facility] [address] [place], [address] Eosinophils/100 WBC (Bld) 2.1 % Normal 0-5 [facility] Comment on above: Performed By: #### L 503.7505, L100.0100, L501.9520, L501.5200, L500.2500 ####[facility] [address] [place], [address] Erythrocyte distribution width (RBC) [Ratio] 14.6 % Normal 11.6-14.6 [facility] Comment on above: Performed By: #### L 503.7505, L100.0100, L501.9520, L501.5200, L500.2500 ####[facility] [address] [place], [address] Hematocrit (Bld) [Volume fraction] 40.4 % Normal 40-54 [facility] Comment on above: Performed By: #### L 503.7505, L100.0100, L501.9520, L501.5200, L500.2500 ####[facility] [address] [place], [address] Hemoglobin (Bld) [Mass/Vol] 13.4 g/dL Normal 13.0-16.5 [facility] Comment on above: Performed By: #### L 503.7505, L100.0100, L501.9520, L501.5200, L500.2500 ####[facility] [address] [place], [address] IG% 2.300 High 0.0-0.9 [facility] Comment on above: Result Comment: IG% - Immature Granulocytes (promyelocytes, myelocytes andmetamyelocytes) > 1% indicates that a LEFT SHIFT is Present. Performed By: #### L 503.7505, L100.0100, L501.9520, L501.5200, L500.2500 ####[facility] [address] [place], [address] Lymphocytes/100 WBC (Bld) 20.0 % Normal 19-41 [facility] Comment on above: Performed By: #### L 503.7505, L100.0100, L501.9520, L501.5200, L500.2500 ####[facility] [address] [place], [address] MCH (RBC) [Entitic mass] 32.4 pg High 27.0-32.0 [facility] Comment on above: Performed By: #### L 503.7505, L100.0100, L501.9520, L501.5200, L500.2500 ####[facility] [address] [place], [address] MCHC (RBC) [Mass/Vol] 33.2 g/dL Normal 32-36 [facility] Comment on above: Performed By: #### L 503.7505, L100.0100, L501.9520, L501.5200, L500.2500 ####[facility] [address] [place], [address] MCV (RBC) [Entitic vol] 97.6 fL High 80-94 [facility] Comment on above: Performed By: #### L 503.7505, L100.0100, L501.9520, L501.5200, L500.2500 ####[facility] [address] [place], [address] Monocytes/100 WBC (Bld) 9.5 % Normal 0-10 [facility] Comment on above: Performed By: #### L 503.7505, L100.0100, L501.9520, L501.5200, L500.2500 ####[facility] [address] [place], [address] Neutrophils/100 WBC (Bld) 65.1 % Normal 47-70 [facility] Comment on above: Performed By: #### L 503.7505, L100.0100, L501.9520, L501.5200, L500.2500 ####[facility] [address] [place], [address] Nucleated RBC (Bld) [#/Vol] 0 10*3/uL Normal 0-5 [facility] Comment on above: Performed By: #### L 503.7505, L100.0100, L501.9520, L501.5200, L500.2500 ####[facility] [address] [place], [address] Platelet mean volume (Bld) [Entitic vol] 8.8 fL Normal 6.2-12.0 [facility] Comment on above: Performed By: #### L 503.7505, L100.0100, L501.9520, L501.5200, L500.2500 ####[facility] [address] [place], [address] Platelets (Bld) [#/Vol] 233 10*3/uL Normal 150-450 [facility] Comment on above: Performed By: #### L 503.7505, L100.0100, L501.9520, L501.5200, L500.2500 ####[facility] [address] [place], [address] RBC (Bld) [#/Vol] 4.14 10*6/uL Low 4.6-6.2 [facility] Comment on above: Performed By: #### L 503.7505, L100.0100, L501.9520, L501.5200, L500.2500 ####[facility] [address] [place], [address] RDW SD 52.4 fl High 35.1-43.9 [facility] Comment on above: Performed By: #### L 503.7505, L100.0100, L501.9520, L501.5200, L500.2500 ####[facility] [address] [place], [address] WBC (Bld) [#/Vol] 7.3 10*3/uL Normal 4.4-11.0 [facility] Comment on above: Performed By: #### L 503.7505, L100.0100, L501.9520, L501.5200, L500.2500 ####[facility] [address] [place], [address] Carbon dioxide, total [Moles /volume] in Central venous bloodOrdered By: Helio Corrales on 11-19-2024 CO2 [Moles/Vol] 27.2 mmol/L 21.0-32.0 [facility] Chest PA and Lateralon 11-19 Chest PA and Lateral Normal [facility] Chloride assayOrdered By: Sharon Corrales on 11-19-2024 Chloride [Moles/Vol] 97 mmol/L Low 98-108 [facility] Emergency Department Summary on 11-19-2024 Emergency Department Summary Normal [facility] Eosinophil percentageOrdered By: Helio Corrales on 11-19-2024 Eosinophils/100 WBC (Bld) 2.1 % 0-5 [facility] Erythrocyte distribution wid th ratioOrdered By: Helio Corrales on 11-19-2024 Erythrocyte distribution width (RBC) [Ratio] 14.6 % 11.6-14.6 [facility] Erythrocyte distribution wid th standard deviationOrdered By: Helio Corrales on 11-19-2024 Erythrocyte distribution width (RBC) [Ratio] 52.4 fl High 35.1-43.9 [facility] Glomerular filtration rate ( GFR) estimation/1.73 sq m using serum, plasma, or whole bOrdered By: Helio Corrales on 11-19-2024 GFR/1.73 sq M.predicted among non-blacks MDRD (S/P/Bld) [Vol rate/Area] 37 mL/min/{1.73_m2} Low >60 [facility] Comment on above: mL/min/1.73m2 CKD-EP I Creatinine Equation (2020) Hematocrit Auto (Bld) [Volum e fraction]Ordered By: Helio Corrales on 11-19-2024 Hematocrit (Bld) [Volume fraction] 40.4 % 40-54 [facility] Hemoglobin measurementOrdere d By: Helio Corrales on 11-19-2024 Hemoglobin (Bld) [Mass/Vol] 13.4 g/dL 13.0-16.5 [facility] Immature granulocytes/100 WB C Auto (Bld)Ordered By: Helio Corrales on 11-19-2024 Immature granulocytes/100 WBC (Bld) 2.300 % High 0.0-0.9 [facility] Comment on above: IG% - Immature Granu locytes (promyelocytes, myelocytes and metamyelocytes) > 1% indicates that a LEFT SHIFT is Present. Influenza virus A and B and SARS-CoV-2 (COVID-19) and Respiratory syncytial virus RNAOrdered By: Helio Corrales on 11-19-2024 SARS-CoV-2 (COVID-19) RNA VÍCTOR+probe Ql (Unsp spec) [facility] Ketones Test strip Ql (U)Ord ered By: Helio Corrales on 11-19-2024 Ketones Ql (U) Negative Negative [facility] MCV (mean corpuscular volume ) determinationOrdered By: Helio Corrales on 11-19-2024 MCV (RBC) [Entitic vol] 97.6 fL High 80-94 [facility] Magnesium measurement (mass/ volume)Ordered By: Helio Corrales on 11-19-2024 Magnesium (Unsp spec) [Mass/Vol] 2.1 mg/dL 1.5-2.2 [facility] Mean corpuscular hemoglobin (MCH) determinationOrdered By: Helio Corrales on 11-19-2024 MCH (RBC) [Entitic mass] 32.4 pg High 27.0-32.0 [facility] Mean corpuscular hemoglobin concentration (MCHC) determinationOrdered By: Helio Corrales on 11-19-2024 MCHC (RBC) [Mass/Vol] 33.2 g/dL 32-36 [facility] Mean platelet volume determi nationOrdered By: Helio Corrales on 11-19-2024 Platelet mean volume (Bld) [Entitic vol] 8.8 fL 6.2-12.0 [facility] Microscopic analysis of urin e for red blood cells (RBC)Ordered By: Helio Corrales on 11-19-2024 Microscopic analysis of urine for red blood cells (RBC) 0 SEEN /hpf 0-5 [facility] Monocyte percentageOrdered B y: Helio Corrales on 11-19-2024 Monocytes/100 WBC (Bld) 9.5 % 0-10 [facility] Mucus LM Ql (Urine sed)Order ed By: Helio Corrales on 11-19-2024 Mucus Ql (Urine sed) 0 SEEN /hpf [facility] Natriuretic peptide.B prohor lam N-Terminal [Mass/volume] in Serum or PlasmaOrdered By: Helio Corrales on 11-19-2024 Natriuretic peptide.B prohormone N-Terminal [Mass/Vol] 521 pg/mL <1800 [facility] Comment on above: Heart Failure Unlike ly: < 300 pg/mLHeart Failure Likely< 50 Years: > 450 pg/mL50-75 Years: > 900 pg/mL>75 Years: > 1800 pg/mL Neutrophil percentageOrdered By: Helio Corrales on 11-19-2024 Neutrophils/100 WBC (Bld) 65.1 % 47-70 [facility] Nitrite Test strip Ql (U)Ord ered By: Helio Corrales on 11-19-2024 Nitrite Ql (U) Negative Negative [facility] Nucleated red blood cell per centageOrdered By: Helio Corrales on 11-19-2024 Nucleated RBC/100 WBC (Bld) [Ratio] 0 % 0-5 [facility] Platelet countOrdered By: Sharon Corrales on 11-19-2024 Platelets (Bld) [#/Vol] 233 10*3/uL 150-450 [facility] Potassium measurement (mass/ volume)Ordered By: Helio Corrales on 11-19-2024 Potassium (Unsp spec) [Mass/Vol] 4.9 mmol/L 3.3-5.1 [facility] Comment on above: Hemolysis present, R esults could be affected. Protein Test strip Ql (U)Ord ered By: Helio Corrales on 11-19-2024 Protein Ql (U) 30 mg/dl High Negative [facility] RBC Auto (Bld) [#/Vol]Ordere d By: Helio Corrales on 11-19-2024 RBC (Bld) [#/Vol] 4.14 10*6/uL Low 4.6-6.2 [facility] Serum creatinine measurement (mass/volume)Ordered By: Helio Corrales on 11-19-2024 Creatinine [Mass/Vol] 1.77 mg/dL High 0.70-1.20 [facility] Serum glucose measurement (m ass/volume)Ordered By: Helio Corrales on 11-19-2024 Glucose [Mass/Vol] 102 mg/dL High 70-99 [facility] Serum or plasma calcium odilon urement (mass/volume)Ordered By: Helio Corrales on 11-19-2024 Calcium [Mass/Vol] 10.0 mg/dL 7.6-11.0 [facility] Serum or plasma urea nitroge n measurement (mass/volume)Ordered By: Helio Corrales on 11-19-2024 Urea nitrogen [Mass/Vol] 26 mg/dL High 4-19 [facility] Sodium levelOrdered By: Soto Corrales on 11-19-2024 Sodium [Moles/Vol] 138 mmol/L 133-145 [facility] Squamous epithelial cells de tection in urine sediment by light microscopyOrdered By: Helio Corrales on 11-19-2024 Epithelial cells.squamous LM Ql (Urine sed) 0 SEEN /hpf 0-5 [facility] TSH DL <= 0.005 mIU/L QnOrde red By: Helio Corrales on 11-19-2024 TSH Qn 1.790 uIU/mL 0.300-4.200 [facility] Urinalysis, Completeon 11-19 EPI,SQUAMOUS 0 SEEN Normal 0-5 [facility] Comment on above: Order Comment: LOIS CTOR TO SPECIFY Performed By: #### M 100.678, L400.0001 ####[facility] [address] [place], [address] Mucus Ql (Urine sed) 0 SEEN Normal [facility] Comment on above: Order Comment: LOIS CTOR TO SPECIFY Performed By: #### M 100.678, L400.0001 ####[facility] [address] [place], [address] RBC 0 SEEN Normal 0-5 [facility] Comment on above: Order Comment: LOIS CTOR TO SPECIFY Performed By: #### M 100.678, L400.0001 ####[facility] [address] [place], [address] Urine clarityOrdered By: Jovany Corrales on 11-19-2024 Clarity (U) Sl. Cloudy Clear [facility] Urine color determinationOrd ered By: Helio Corrales on 11-19-2024 Color (U) Yellow Yellow [facility] Urine cultureOrdered By: Jovany Corrales on 11-19-2024 Bacteria identified Cx Nom (U) Enterobacter cloacae complex Abnormal [facility] Urine glucose detectionOrder ed By: Helio Corrales on 11-19-2024 Glucose Ql (U) Normal mg/dl Normal [facility] Urine leukocyte esterase det ection by dipstickOrdered By: Helio Corrales on 11-19-2024 Leukocyte esterase Test strip Ql (U) 500 /ul High Negative [facility] Urine pHOrdered By: Helio randle on 11-19-2024 pH (U) 6.0 [pH] 5.0 - 8.0 [facility] Urine sediment bacteria coun t by microscopy (number/high power field)Ordered By: Helio Corrales on 11-19-2024 Bacteria LM.HPF (Urine sed) [#/Area] 2 /[HPF] None Seen [facility] Urine specific gravity measu rementOrdered By: Helio Corrales on 11-19-2024 Specific gravity (U) [Rel density] 1.015 1.002-1.030 [facility] Urine urobilinogen measureme ntOrdered By: Helio Corrales on 11-19-2024 Urobilinogen Ql (U) Normal mg/dl Normal [facility] White blood cell (WBC) count Ordered By: Helio Corrales on 11-19-2024 WBC (Bld) [#/Vol] 7.3 10*3/uL 4.4-11.0 [facility] White blood cell countOrdere d By: Helio Corrales on 11-19-2024 White blood cell count 50-100 SEEN /hpf 0-5 [facility] CNOVon 09-06-2024 CNOV Office Visit (PODIWS ) OLMAN SYED ([id number]) 1935 M Date Time Provider Department 09/06/24 1:20 PM BARBIE NOVA During your visit today, [...] RTC in 3-4 months. EMILY Duff Matthew 09/06/2024 1:58 PM Signed Diabetes Foot Care [...] (or decreased sensation in your feet) a catalogue compiler should always cut your toenails. Be Careful [...] more t (more content not included)... Normal [facility] Neurology Visit Reporton Neurology Visit Report Normal [facility] MR/BMS.IMBon 07-25-2024 MR/BMS.IMB Normal [facility] Cerv Spine 2 or 3 Viewson Cerv Spine 2 or 3 Views Normal [facility] MR/BMS.IMBon 06-24-2024 MR/BMS.IMB Normal [facility] Bedside Glucoseon 06-16-2024 FINGERSTICK GLU 219 mg/dL High 74-106 [facility] Comment on above: Result Comment: NAGI GEMENT OF PATIENT CARE PER NURSING PROTOCOL Performed By: #### L 501.080 ####[facility] [address] [facility] [address] FINGERSTICK GLU 130 mg/dL High 74-106 [facility] Comment on above: Result Comment: NAGI GEMENT OF PATIENT CARE PER NURSING PROTOCOL Performed By: #### L 501.080 ####[facility] [address] [facility] [address] Discharge Instructionon 05-20 Discharge Instruction Normal [facility] Urine Drug Screen (VISTA)on 06-16-2024 AMPHETAMINES Negative Normal <1000 ng/mL [facility] Comment on above: Order Comment: SENT LABEL TO PCU TO COLLECT Performed By: #### L 501.4020, L501.9100, L501.9520, L505.5000, L506.0250, L500.4100, L503.0105 ####[facility] [address] [place], [address] BARBITIURATES Negative Normal < 200 ng/mL [facility] Comment on above: Order Comment: SENT LABEL TO PCU TO COLLECT Performed By: #### L 501.4020, L501.9100, L501.9520, L505.5000, L506.0250, L500.4100, L503.0105 ####[facility] [address] [place], [address] BENZODIAZIPINE Negative Normal < 200 ng/mL [facility] Comment on above: Order Comment: SENT LABEL TO PCU TO COLLECT Performed By: #### L 501.4020, L501.9100, L501.9520, L505.5000, L506.0250, L500.4100, L503.0105 ####[facility] [address] [place], [address] COCAINE Negative Normal < 300 ng/mL [facility] Comment on above: Order Comment: SENT LABEL TO PCU TO COLLECT Performed By: #### L 501.4020, L501.9100, L501.9520, L505.5000, L506.0250, L500.4100, L503.0105 ####[facility] [address] [place], [place], [phone] ECSTACY Negative Normal < 500 ng/mL [facility] Comment on above: Order Comment: SENT LABEL TO PCU TO COLLECT Performed By: #### L 501.4020, L501.9100, L501.9520, L505.5000, L506.0250, L500.4100, L503.0105 ####[facility] [address] [place], [place], [phone] METHADONE Negative Normal < 300 ng/mL [facility] Comment on above: Order Comment: SENT LABEL TO PCU TO COLLECT Performed By: #### L 501.4020, L501.9100, L501.9520, L505.5000, L506.0250, L500.4100, L503.0105 ####[facility] [address] [place], [phone] OPIATES Negative Normal < 300 ng/mL [facility] Comment on above: Order Comment: SENT LABEL TO PCU TO COLLECT Performed By: #### L 501.4020, L501.9100, L501.9520, L505.5000, L506.0250, L500.4100, L503.0105 ####[facility] [address] [place], [place], [phone] PCP Negative Normal < 25 ng/mL [facility] Comment on above: Order Comment: SENT LABEL TO PCU TO COLLECT Performed By: #### L 501.4020, L501.9100, L501.9520, L505.5000, L506.0250, L500.4100, L503.0105 ####[facility] [address] [place], [place], [phone] THC Negative Normal < 50 ng/mL [facility] Comment on above: Order Comment: SENT LABEL TO PCU TO COLLECT Performed By: #### L 501.4020, L501.9100, L501.9520, L505.5000, L506.0250, L500.4100, L503.0105 ####[facility] [address] [place], [place], [phone] VISTA UDS PH 5 Normal [facility] Comment on above: Order Comment: SENT LABEL TO PCU TO COLLECT Performed By: #### L 501.4020, L501.9100, L501.9520, L505.5000, L506.0250, L500.4100, L503.0105 ####[facility] [address] [place], [place], [id number] Alcohol, Blood (Medical)-Ser umon 06-15-2024 SERUM ETOH < 3.0 Normal [facility] Comment on above: Result Comment: The serum:whole blood ethanol ratio is approximately 1.14and varies slightly with hematocrit.Medical Alcohol reference interval and critical value innon-tolerant individuals; 50 - 100 Impairment 100 Intoxication 100 - 250 Severe Poisoning 250 - 400 Deep/possible fatal coma Performed By: #### L 501.4020, L501.9100, L501.9520, L505.5000, L506.0250, L500.4100, L503.0105 ####[facility] [address] [place], [address] Bedside Glucoseon 06-15-2024 FINGERSTICK GLU 117 mg/dL High 74-106 [facility] Comment on above: Result Comment: NAGI GEMENT OF PATIENT CARE PER NURSING PROTOCOL Performed By: #### L 501.080 ####[facility] [address] [place], [address] FINGERSTICK GLU 125 mg/dL High 74-106 [facility] Comment on above: Result Comment: NAGI GEMENT OF PATIENT CARE PER NURSING PROTOCOL Performed By: #### L 501.080 ####[facility] [address] [place], [address] FINGERSTICK GLU 150 mg/dL High -106 [facility] Comment on above: Result Comment: NAGI GEMENT OF PATIENT CARE PER NURSING PROTOCOL Performed By: #### L 501.080 ####[facility] [address] [place], [address] FINGERSTICK GLU 103 mg/dL Normal -[address] [place] [address] Comment on above: Result Comment: NAGI GEMENT OF PATIENT CARE PER NURSING PROTOCOL Performed By: #### L 501.080 ####[facility] [address] [place], [address] FINGERSTICK GLU 66 mg/dL Low 74-106 [facility] Comment on above: Result Comment: NAGI GEMENT OF PATIENT CARE PER NURSING PROTOCOL Performed By: #### L 501.080 ####[facility] [address] [place], [address] FINGERSTICK GLU 69 mg/dL Low 74-106 [facility] Comment on above: Result Comment: NAGI GEMENT OF PATIENT CARE PER NURSING PROTOCOL Performed By: #### L 501.080 ####[facility] [address] [place], [address] Brain without Contraston Brain without Contrast Normal [facility] CBC W/Diff, Automatedon 12-2 ACANTHOCYTE RARE Normal [facility] Comment on above: Performed By: #### L 501.5200, L501.4020, L501.2300, L100.0100, L501.9985, L500.4050 ####[facility] [address] [place], [address] Anisocytosis Ql (Bld) 2+ Normal [facility] Comment on above: Performed By: #### L 501.5200, L501.4020, L501.2300, L100.0100, L501.9985, L500.4050 ####[facility] [address] [place], [address] CRENATED RBC 1+ Normal [facility] Comment on above: Performed By: #### L 501.5200, L501.4020, L501.2300, L100.0100, L501.9985, L500.4050 ####[facility] [address] [place], [address] MACROCYTOSIS 1+ Normal [facility] Comment on above: Performed By: #### L 501.5200, L501.4020, L501.2300, L100.0100, L501.9985, L500.4050 ####[facility] [address] [place], [address] MICROCYTIC 1+ Normal [facility] Comment on above: Performed By: #### L 501.5200, L501.4020, L501.2300, L100.0100, L501.9985, L500.4050 ####[facility] [address] [place], [address] POLYCHROMASIA 1+ Normal [facility] Comment on above: Performed By: #### L 501.5200, L501.4020, L501.2300, L100.0100, L501.9985, L500.4050 ####[facility] [address] [place], [address] SCHISTOCYTES RARE Normal [facility] Comment on above: Performed By: #### L 501.5200, L501.4020, L501.2300, L100.0100, L501.9985, L500.4050 ####[facility] [address] [place], [address] TARGET CELLS 2+ Normal [facility] Comment on above: Performed By: #### L 501.5200, L501.4020, L501.2300, L100.0100, L501.9985, L500.4050 ####[facility] [address] [place], [address] TEAR DROP 1+ Normal [facility] Comment on above: Performed By: #### L 501.5200, L501.4020, L501.2300, L100.0100, L501.9985, L500.4050 ####[facility] [address] [place], [address] SMEAR COMMENT SCANNED Normal [facility] Comment on above: Performed By: #### L 501.5200, L501.4020, L501.2300, L100.0100, L501.9985, L500.4050 ####[facility] [address] [place], [address] Anisocytosis Ql (Bld) 2+ Normal [facility] Comment on above: Performed By: #### L 100.0100, L300.4310, L300.3900 ####[facility] [address] [place], [address] HYPOCHROMASIA RARE Normal [facility] Comment on above: Performed By: #### L 100.0100, L300.4310, L300.3900 ####[facility] [address] [place], [address] PLT EST ADEQUATE Normal ADEQ [facility] Comment on above: Performed By: #### L 501.5200, L501.4020, L501.2300, L100.0100, L501.9985, L500.4050 ####[facility] [address] [place], [address] Performed By: #### L 100.0100, L300.4310, L300.3900 ####[facility] [address] [place], [address] Comprehensive Metabolic Prof ilon 06-15-2024 Albumin [Mass/Vol] 3.0 g/dL Low 3.2-5.0 [facility] Comment on above: Order Comment: Comme nts: SPECIMEN #2'TROP' Serial specimen #1, #2 or #3: 2 Performed By: #### L 501.5200, L501.4020, L501.2300, L100.0100, L501.9985, L500.4050 ####[facility] [address] [place], [address] Albumin/Globulin [Mass ratio] 1.1 {ratio} Normal 0.9-2.4 [facility] Comment on above: Order Comment: Comme nts: SPECIMEN #2'TROP' Serial specimen #1, #2 or #3: 2 Performed By: #### L 501.5200, L501.4020, L501.2300, L100.0100, L501.9985, L500.4050 ####[facility] [address] [place], [address] ALK P 50 U/L Normal 45-117 [facility] Comment on above: Order Comment: Comme nts: SPECIMEN #2'TROP' Serial specimen #1, #2 or #3: 2 Performed By: #### L 501.5200, L501.4020, L501.2300, L100.0100, L501.9985, L500.4050 ####[facility] [address] [place], [address] ALT [Catalytic activity/Vol] 7 U/L Low 16-61 [facility] Comment on above: Order Comment: Comme nts: SPECIMEN #2'TROP' Serial specimen #1, #2 or #3: 2 Performed By: #### L 501.5200, L501.4020, L501.2300, L100.0100, L501.9985, L500.4050 ####[facility] [address] [place], [address] AST [Catalytic activity/Vol] 7 U/L Low 15-37 [facility] Comment on above: Order Comment: Comme nts: SPECIMEN #2'TROP' Serial specimen #1, #2 or #3: 2 Performed By: #### L 501.5200, L501.4020, L501.2300, L100.0100, L501.9985, L500.4050 ####[facility] [address] [place], [address] Bilirubin [Mass/Vol] 0.70 mg/dL Normal 0.20-1.00 [facility] Comment on above: Order Comment: Comme nts: SPECIMEN #2'TROP' Serial specimen #1, #2 or #3: 2 Result Comment: For patients on eltrombopag therapy, use of Dimension [place] TBIL is not recommended. Performed By: #### L 501.5200, L501.4020, L501.2300, L100.0100, L501.9985, L500.4050 ####[facility] [address] [place], [address] BUN/CRE 12.4 RATIO Normal 10-20 [facility] Comment on above: Order Comment: Comme nts: SPECIMEN #2'TROP' Serial specimen #1, #2 or #3: 2 Performed By: #### L 501.5200, L501.4020, L501.2300, L100.0100, L501.9985, L500.4050 ####[facility] [address] [place], [address] CA,Total 8.9 mg/dL Normal 8.5-10.1 [facility] Comment on above: Order Comment: Comme nts: SPECIMEN #2'TROP' Serial specimen #1, #2 or #3: 2 Performed By: #### L 501.5200, L501.4020, L501.2300, L100.0100, L501.9985, L500.4050 ####[facility] [address] [place], [address] Chloride [Moles/Vol] 102 mmol/L Normal 98-107 [facility] Comment on above: Order Comment: Comme nts: SPECIMEN #2'TROP' Serial specimen #1, #2 or #3: 2 Performed By: #### L 501.5200, L501.4020, L501.2300, L100.0100, L501.9985, L500.4050 ####[facility] [address] [place], [address] CO2 [Moles/Vol] 29.0 mmol/L Normal 21.0-32.0 [facility] Comment on above: Order Comment: Comme nts: SPECIMEN #2'TROP' Serial specimen #1, #2 or #3: 2 Performed By: #### L 501.5200, L501.4020, L501.2300, L100.0100, L501.9985, L500.4050 ####[facility] [address] [place], [address] Creatinine [Mass/Vol] 2.25 mg/dL High 0.70-1.30 [facility] Comment on above: Order Comment: Comme nts: SPECIMEN #2'TROP' Serial specimen #1, #2 or #3: 2 Result Comment: The validity of the calculated GFR GFRAA in patients over70 years has not been determined. Clinical correlation isessential. Performed By: #### L 501.5200, L501.4020, L501.2300, L100.0100, L501.9985, L500.4050 ####[facility] [address] [place], [address] ECRCL 27.67 ml/min Normal [facility] Comment on above: Order Comment: Comme nts: SPECIMEN #2'TROP' Serial specimen #1, #2 or #3: 2 Performed By: #### L 501.5200, L501.4020, L501.2300, L100.0100, L501.9985, L500.4050 ####[facility] [address] [place], [address] EST GFR - AA 36 mL/min Low >60 [facility] Comment on above: Order Comment: Comme nts: SPECIMEN #2'TROP' Serial specimen #1, #2 or #3: 2 Result Comment: Afri can Hungarian GFR Calc Performed By: #### L 501.5200, L501.4020, L501.2300, L100.0100, L501.9985, L500.4050 ####[facility] [address] [place], [address] GAP 6 Normal 5-15 [facility] Comment on above: Order Comment: Comme nts: SPECIMEN #2'TROP' Serial specimen #1, #2 or #3: 2 Performed By: #### L 501.5200, L501.4020, L501.2300, L100.0100, L501.9985, L500.4050 ####[facility] [address] [place], [address] GFR/1.73 sq M.predicted among non-blacks MDRD (S/P/Bld) [Vol rate/Area] 30 mL/min/{1.73_m2} Low >60 [facility] Comment on above: Order Comment: Comme nts: SPECIMEN #2'TROP' Serial specimen #1, #2 or #3: 2 Result Comment: Non- GFR Calc Performed By: #### L 501.5200, L501.4020, L501.2300, L100.0100, L501.9985, L500.4050 ####[facility] [address] [place], [address] Globulin (S) [Mass/Vol] 2.7 g/dL Normal 2.2-4.2 [facility] Comment on above: Order Comment: Comme nts: SPECIMEN #2'TROP' Serial specimen #1, #2 or #3: 2 Performed By: #### L 501.5200, L501.4020, L501.2300, L100.0100, L501.9985, L500.4050 ####[facility] [address] [place], [address] Glucose [Mass/Vol] 80 mg/dL Normal 74-106 [facility] Comment on above: Order Comment: Comme nts: SPECIMEN #2'TROP' Serial specimen #1, #2 or #3: 2 Performed By: #### L 501.5200, L501.4020, L501.2300, L100.0100, L501.9985, L500.4050 ####[facility] [address] [place], [address] Potassium [Moles/Vol] 3.5 mmol/L Normal 3.5-5.1 [facility] Comment on above: Order Comment: Comme nts: SPECIMEN #2'TROP' Serial specimen #1, #2 or #3: 2 Performed By: #### L 501.5200, L501.4020, L501.2300, L100.0100, L501.9985, L500.4050 ####[facility] [address] [place], [address] Sodium [Moles/Vol] 137 mmol/L Normal 136-145 [facility] Comment on above: Order Comment: Comme nts: SPECIMEN #2'TROP' Serial specimen #1, #2 or #3: 2 Performed By: #### L 501.5200, L501.4020, L501.2300, L100.0100, L501.9985, L500.4050 ####[facility] [id number] [place], [address] T PROT 5.7 g/dL Low 6.4-8.2 [facility] Comment on above: Order Comment: Comme nts: SPECIMEN #2'TROP' Serial specimen #1, #2 or #3: 2 Performed By: #### L 501.5200, L501.4020, L501.2300, L100.0100, L501.9985, L500.4050 ####[facility] [id number] [facility] [place], [address] Urea nitrogen [Mass/Vol] 28 mg/dL High 7-18 [facility] Comment on above: Order Comment: Comme nts: SPECIMEN #2'TROP' Serial specimen #1, #2 or #3: 2 Performed By: #### L 501.5200, L501.4020, L501.2300, L100.0100, L501.9985, L500.4050 ####[facility] [address] [facility] [place], [address] Echo Complete W/ Contraston 06-15-2024 Echo Complete W/ Contrast Normal [facility] Emergency Department Summary on 06-15-2024 Emergency Department Summary Normal [facility] Folates, (Folic Acid)on 05-20 FOLATES 8.00 ng/mL Normal 3.1-55.4 [facility] Comment on above: Order Comment: Has P atient had X-rays with Contrast this admission? N'TROP' Serial specimen #1, #2 or #3: 1Y Performed By: #### L 501.4020, L501.9100, L501.9520, L505.5000, L506.0250, L500.4100, L503.0105 ####[facility] [address] [place], [address] H AND P Exam - Hospitaliston 06-15-2024 H&P Exam - Hospitalist Normal [facility] Hemoglobin A1con 06-15-2024 HbA1c (Bld) [Mass fraction] 6.2 % High 3.8-5.6 [facility] Comment on above: Result Comment: Norm al < 5.7 % Prediabetic 5.7 - 6.4 % Diabetic >or= 6.5 % Please note range changes. Performed By: #### L 501.5200, L501.4020, L501.2300, L100.0100, L501.9985, L500.4050 ####[facility] [address] [place], [address] L501.4020on 06-15-2024 TROPONIN-I HS 33 pg/mL Normal 3.0-78.0 [facility] Comment on above: Order Comment: Comme nts: SPECIMEN #3'TROP' Serial specimen #1, #2 or #3: 3 Result Comment: Plea se Note: New Test Units and Gender Specific Reference Ranges. For more information see Policy Stat Procedure [place] High Sensitivity Troponin (TNIH) and attachments. Performed By: #### L 501.4020 ####[facility] [address] [place], [address] TROPONIN-I HS 31 pg/mL Normal 3.0-78.0 [facility] Comment on above: Order Comment: Comme nts: SPECIMEN #2'TROP' Serial specimen #1, #2 or #3: 2 Result Comment: Plea se Note: New Test Units and Gender Specific Reference Ranges. For more information see Policy Stat Procedure [place] High Sensitivity Troponin (TNIH) and attachments. Performed By: #### L 501.5200, L501.4020, L501.2300, L100.0100, L501.9985, L500.4050 ####[facility] [address] [place], [address] TROPONIN-I HS 35 pg/mL Normal 3.0-78.0 [facility] Comment on above: Order Comment: Has Manda chavez had X-rays with Contrast this admission? N'TROP' Serial specimen #1, #2 or #3: 1Y Result Comment: Loly varela Note: New Test Units and Gender Specific Reference Ranges. For more information see Policy Stat Procedure [place] High Sensitivity Troponin (TNIH) and attachments. Performed By: #### L 501.4020, L501.9100, L501.9520, L505.5000, L506.0250, L500.4100, L503.0105 ####[facility] [address] [place], [address] Lipid Profileon 06-15-2024 Cholesterol [Mass/Vol] 148 mg/dL Normal 200 [facility] Comment on above: Order Comment: Has Manda chavez had X-rays with Contrast this admission? N'TROP' Serial specimen #1, #2 or #3: 1Y Result Comment: <200 mg/dL Desirable 200-240 mg/dL Borderline >240 mg/dL High Risk Performed By: #### L 501.4020, L501.9100, L501.9520, L505.5000, L506.0250, L500.4100, L503.0105 ####[facility] [address] [place], [place], [phone] Cholesterol in HDL [Mass/Vol] 46 mg/dL Normal [facility] Comment on above: Order Comment: Has Manda chavez had X-rays with Contrast this admission? N'TROP' Serial specimen #1, #2 or #3: 1Y Result Comment: The drugs N-Acetylcysteine and Metamizole may falselydepress this assay. Reference Range HDL <40 mg/dL Low HDL Cholesterol HDL >or= 60 mg/dL High HDL Cholesterol Performed By: #### L 501.4020, L501.9100, L501.9520, L505.5000, L506.0250, L500.4100, L503.0105 ####[facility] [address] [place], [address] Cholesterol in LDL [Mass/Vol] 64 mg/dL Normal 0-130 [facility] Comment on above: Order Comment: Has Manda chavez had X-rays with Contrast this admission? N'TROP' Serial specimen #1, #2 or #3: 1Y Performed By: #### L 501.4020, L501.9100, L501.9520, L505.5000, L506.0250, L500.4100, L503.0105 ####[facility] [address] [place], [address] Cholesterol in VLDL [Mass/Vol] 38 mg/dL Normal 5-40 [facility] Comment on above: Order Comment: Has Manda chavez had X-rays with Contrast this admission? N'TROP' Serial specimen #1, #2 or #3: 1Y Performed By: #### L 501.4020, L501.9100, L501.9520, L505.5000, L506.0250, L500.4100, L503.0105 ####[facility] [address] [place], [address] Triglyceride [Mass/Vol] 189 mg/dL Normal [facility] Comment on above: Order Comment: Has Manda [...] 501.4020, L501.9100, L501.9520, L505.5000, L506.0250, L500.4100, L503.0105 ####[facility] [address] [place], [address] Magnesiumon 06-15-2024 Magnesium [Mass/Vol] 1.7 mg/dL Normal 1.6-2.6 [facility] Comment on above: Order Comment: Comme nts: SPECIMEN #2'TROP' Serial specimen #1, #2 or #3: 2 Performed By: #### L 501.5200, L501.4020, L501.2300, L100.0100, L501.9985, L500.4050 ####[facility] [address] [place], [address] Partial Thromboplast Timeon 06-15-2024 aPTT Coag (Bld) [Time] 26.1 s Normal 24.1-36.2 [facility] Comment on above: Performed By: #### L 100.0100, L300.4310, L300.3900 ####[facility] [address] [place], [address] Phosphoruson 06-15-2024 Phosphate [Mass/Vol] 4.3 mg/dL Normal 2.5-4.9 [facility] Comment on above: Order Comment: Comme nts: SPECIMEN #2'TROP' Serial specimen #1, #2 or #3: 2 Performed By: #### L 501.5200, L501.4020, L501.2300, L100.0100, L501.9985, L500.4050 ####[facility] [address] [place], [address] Prothrombin Time w/INRon INR Coag (PPP) [Relative time] 1.2 {INR} Normal [facility] Comment on above: Performed By: #### L 100.0100, L300.4310, L300.3900 ####[facility] [address] [place], [address] PT Coag (PPP) [Time] 15.0 s High 11.7-14.9 [facility] Comment on above: Performed By: #### L 100.0100, L300.4310, L300.3900 ####[facility] [address] [place], [address] Thyroid Stim Hormone (TSH)on 06-15-2024 TSH 3.230 uIU/mL Normal 0.358-3.740 [facility] Comment on above: Order Comment: Has Manda chavez had X-rays with Contrast this admission? N'TROP' Serial specimen #1, #2 or #3: 1Y Performed By: #### L 501.4020, L501.9100, L501.9520, L505.5000, L506.0250, L500.4100, L503.0105 ####[facility] [address] [place], [address] Vitamin B12on 06-15-2024 Cobalamin (Vitamin B12) [Mass/Vol] pg/mL High 211-911 [facility] Comment on above: Performed By: #### L 501.4020, L501.9100, L501.9520, L505.5000, L506.0250, L500.4100, L503.0105 ####[facility] [address] [place], [address] 12 Lead EKGon 06-14-2024 12 Lead EKG Normal [facility] Basic Metabolic Profile (BMP )on 06-14-2024 BUN/CRE 11.6 RATIO Normal 10-20 [facility] Comment on above: Performed By: #### L 500.2500, L501.5200 ####[facility] [address] [place], [address] CA,Total 9.5 mg/dL Normal 8.5-10.1 [facility] Comment on above: Performed By: #### L 500.2500, L501.5200 ####[facility] [address] [place], [address] Chloride [Moles/Vol] 102 mmol/L Normal 98-107 [facility] Comment on above: Performed By: #### L 500.2500, L501.5200 ####[facility] [address] [place], [address] CO2 [Moles/Vol] 21.0 mmol/L Normal 21.0-32.0 [facility] Comment on above: Performed By: #### L 500.2500, L501.5200 ####[facility] [address] [place], [address] Creatinine [Mass/Vol] 2.25 mg/dL High 0.70-1.30 [facility] Comment on above: Result Comment: The validity of the calculated GFR GFRAA in patients over70 years has not been determined. Clinical correlation isessential. Performed By: #### L 500.2500, L501.5200 ####[facility] [address] [place], [address] ECRCL 25.79 ml/min Normal [facility] Comment on above: Performed By: #### L 500.2500, L501.5200 ####[facility] [address] [place], [address] EST GFR - AA 36 mL/min Low >60 [facility] Comment on above: Result Comment: Afri can Hungarian GFR Calc Performed By: #### L 500.2500, L501.5200 ####[facility] [address] [place], [address] GAP 14 Normal 5-15 [facility] Comment on above: Performed By: #### L 500.2500, L501.5200 ####[facility] [address] [place], [address] GFR/1.73 sq M.predicted among non-blacks MDRD (S/P/Bld) [Vol rate/Area] 30 mL/min/{1.73_m2} Low >60 [facility] Comment on above: Result Comment: Non- GFR Calc Performed By: #### L 500.2500, L501.5200 ####[facility] [address] [place], [address] Glucose [Mass/Vol] 120 mg/dL High 74-106 [facility] Comment on above: Result Comment: Fast ing Glucose result from 100 to 125 mg/dLsuggests IMPAIRED HOMEOSTASIS per A.D.A. criteria. Performed By: #### L 500.2500, L501.5200 ####[facility] [address] [place], [address] Potassium [Moles/Vol] 3.9 mmol/L Normal 3.5-5.1 [facility] Comment on above: Result Comment: Slig ht Hemolysis, Result may be falsely increased. Performed By: #### L 500.2500, L501.5200 ####[facility] [address] [place], [address] Sodium [Moles/Vol] 136 mmol/L Normal 136-145 [facility] Comment on above: Performed By: #### L 500.2500, L501.5200 ####[facility] [address] [place], [address] Urea nitrogen [Mass/Vol] 26 mg/dL High 7-18 [facility] Comment on above: Performed By: #### L 500.2500, L501.5200 ####[facility] [address] [place], [address] Brain/Head without Contrasto n 06-14-2024 Brain/Head without Contrast Normal [facility] Magnesiumon 06-14-2024 Magnesium [Mass/Vol] 1.8 mg/dL Normal 1.6-2.6 [facility] Comment on above: Result Comment: Slig ht Hemolysis, Result may be falsely increased. Performed By: #### L 500.2500, L501.5200 ####[facility] [address] [place], [address] CNOVon 06-06-2024 CNOV Office Visit (PODIWS ) OLMAN SYED ([id number]) 1935 M Date Time Provider Department 06/06/24 [...] (or decreased sensation in your feet) a catalogue compiler should always cut your toenails. Be Careful [...] Go to your health care provider or catalogue compiler to treat these conditions. Barbie Nova 07/20/2024 [...] DP and (more content not included)... Normal [facility] MR/BMS.IMBon 05-20-2024 MR/BMS.IMB Normal [facility] CBC W/Diff, Automatedon 11- Absolute Lymph 1.31 X10 3/uL Normal 0.83-4.51 [facility] Comment on above: Performed By: #### L 501.50990, L501.9910, L501.9985, L501.9520, L500.4100, L500.4050, L503.0105, L506.0400, L501.5200, L100.0100 ####[facility] [address] [place], [place], [phone] Absolute Neut 3.7 X10 3/uL Normal 2.0-7.7 [facility] Comment on above: Performed By: #### L 501.80592, L501.9910, L501.9985, L501.9520, L500.4100, L500.4050, L503.0105, L506.0400, L501.5200, L100.0100 ####[facility] [address] [place], [place], [id number] Basophils/100 WBC (Bld) 0.9 % Normal 0-1 [facility] Comment on above: Performed By: #### L 501.00462, L501.9910, L501.9985, L501.9520, L500.4100, L500.4050, L503.0105, L506.0400, L501.5200, L100.0100 ####[facility] [address] [place], [place], [phone]) Eosinophils/100 WBC (Bld) 8.9 % High 0-5 [facility] Comment on above: Performed By: #### L 501.77169, L501.9910, L501.9985, L501.9520, L500.4100, L500.4050, L503.0105, L506.0400, L501.5200, L100.0100 ####[facility] [address] [place], [place], [phone]) Erythrocyte distribution width (RBC) [Ratio] 19.1 % High 11.6-14.6 [facility] Comment on above: Performed By: #### L 501.13766, L501.9910, L501.9985, L501.9520, L500.4100, L500.4050, L503.0105, L506.0400, L501.5200, L100.0100 ####[facility] [address] [place], [phone]) Hematocrit (Bld) [Volume fraction] 32.2 % Low 40-54 [facility] Comment on above: Performed By: #### L 501.54855, L501.9910, L501.9985, L501.9520, L500.4100, L500.4050, L503.0105, L506.0400, L501.5200, L100.0100 ####[facility] [address] [place], [place], [phone]) Hemoglobin (Bld) [Mass/Vol] 9.9 g/dL Low 13.0-16.5 [facility] Comment on above: Performed By: #### L 501.61075, L501.9910, L501.9985, L501.9520, L500.4100, L500.4050, L503.0105, L506.0400, L501.5200, L100.0100 ####[facility] [address] [place], [place], [phone] IG% 0.800 Normal 0.0-0.9 [facility] Comment on above: Result Comment: IG% - Immature Granulocytes (promyelocytes, myelocytes andmetamyelocytes) > 1% indicates that a LEFT SHIFT is Present. Performed By: #### L 501.58918, L501.9910, L501.9985, L501.9520, L500.4100, L500.4050, L503.0105, L506.0400, L501.5200, L100.0100 ####[facility] [address] [place], [address] Lymphocytes/100 WBC (Bld) 20.4 % Normal 19-41 [facility] Comment on above: Performed By: #### L 501.44068, L501.9910, L501.9985, L501.9520, L500.4100, L500.4050, L503.0105, L506.0400, L501.5200, L100.0100 ####[facility] [address] [place], [address] MCH (RBC) [Entitic mass] 24.3 pg Low 27.0-32.0 [facility] Comment on above: Performed By: #### L 501.63076, L501.9910, L501.9985, L501.9520, L500.4100, L500.4050, L503.0105, L506.0400, L501.5200, L100.0100 ####[facility] [address] [place], [address] MCHC (RBC) [Mass/Vol] 30.7 g/dL Low 32-36 [facility] Comment on above: Performed By: #### L 501.15071, L501.9910, L501.9985, L501.9520, L500.4100, L500.4050, L503.0105, L506.0400, L501.5200, L100.0100 ####[facility] [address] [place], [place], [phone] MCV (RBC) [Entitic vol] 79.1 fL Low 80-94 [facility] Comment on above: Performed By: #### L 501.91917, L501.9910, L501.9985, L501.9520, L500.4100, L500.4050, L503.0105, L506.0400, L501.5200, L100.0100 ####[facility] [address] [place], [address] Monocytes/100 WBC (Bld) 11.5 % High 0-10 [facility] Comment on above: Performed By: #### L 501.23752, L501.9910, L501.9985, L501.9520, L500.4100, L500.4050, L503.0105, L506.0400, L501.5200, L100.0100 ####[facility] [address] [place], [address] Neutrophils/100 WBC (Bld) 57.5 % Normal 47-70 [facility] Comment on above: Performed By: #### L 501.78798, L501.9910, L501.9985, L501.9520, L500.4100, L500.4050, L503.0105, L506.0400, L501.5200, L100.0100 ####[facility] [address] [place], [place], [phone] Nucleated RBC (Bld) [#/Vol] 0 10*3/uL Normal 0-5 [facility] Comment on above: Performed By: #### L 501.60878, L501.9910, L501.9985, L501.9520, L500.4100, L500.4050, L503.0105, L506.0400, L501.5200, L100.0100 ####[facility] [address] [place], [address] Platelet mean volume (Bld) [Entitic vol] 8.9 fL Normal 6.2-12.0 [facility] Comment on above: Performed By: #### L 501.53097, L501.9910, L501.9985, L501.9520, L500.4100, L500.4050, L503.0105, L506.0400, L501.5200, L100.0100 ####[facility] [address] [place], [place], [phone] Platelets (Bld) [#/Vol] 281 10*3/uL Normal 150-450 [facility] Comment on above: Performed By: #### L 501.36834, L501.9910, L501.9985, L501.9520, L500.4100, L500.4050, L503.0105, L506.0400, L501.5200, L100.0100 ####[facility] [address] [place], [place], [phone] RBC (Bld) [#/Vol] 4.07 10*6/uL Low 4.6-6.2 [facility] Comment on above: Performed By: #### L 501.21423, L501.9910, L501.9985, L501.9520, L500.4100, L500.4050, L503.0105, L506.0400, L501.5200, L100.0100 ####[facility] [address] [place], [place], [phone] RDW SD 54.7 fl High 35.1-43.9 [facility] Comment on above: Performed By: #### L 501.17806, L501.9910, L501.9985, L501.9520, L500.4100, L500.4050, L503.0105, L506.0400, L501.5200, L100.0100 ####[facility] [address] [place], [place], [phone] WBC (Bld) [#/Vol] 6.4 10*3/uL Normal 4.4-11.0 [facility] Comment on above: Performed By: #### L 501.60443, L501.9910, L501.9985, L501.9520, L500.4100, L500.4050, L503.0105, L506.0400, L501.5200, L100.0100 ####[facility] [address] [place], [place], [phone] Comprehensive Metabolic Prof inon 05-09-2024 Albumin [Mass/Vol] 3.8 g/dL Normal 3.2-5.0 [facility] Comment on above: Performed By: #### L 501.23844, L501.9910, L501.9985, L501.9520, L500.4100, L500.4050, L503.0105, L506.0400, L501.5200, L100.0100 ####[facility] [address] [place], [place], [phone] Albumin/Globulin [Mass ratio] 1.2 {ratio} Normal 0.9-2.4 [facility] Comment on above: Performed By: #### L 501.87186, L501.9910, L501.9985, L501.9520, L500.4100, L500.4050, L503.0105, L506.0400, L501.5200, L100.0100 ####[facility] [address] [place], [address] ALK P 46 U/L Normal 45-117 [facility] Comment on above: Performed By: #### L 501.83941, L501.9910, L501.9985, L501.9520, L500.4100, L500.4050, L503.0105, L506.0400, L501.5200, L100.0100 ####[facility] [address] [place], [address] ALT [Catalytic activity/Vol] 10 U/L Low 16-61 [facility] Comment on above: Performed By: #### L 501.33628, L501.9910, L501.9985, L501.9520, L500.4100, L500.4050, L503.0105, L506.0400, L501.5200, L100.0100 ####[facility] [address] [place], [address] AST [Catalytic activity/Vol] 6 U/L Low 15-37 [facility] Comment on above: Performed By: #### L 501.19063, L501.9910, L501.9985, L501.9520, L500.4100, L500.4050, L503.0105, L506.0400, L501.5200, L100.0100 ####[facility] [address] [place], [address] Bilirubin [Mass/Vol] 0.70 mg/dL Normal 0.20-1.00 [facility] Comment on above: Result Comment: For patients on eltrombopag therapy, use of Dimension [place] TBIL is not recommended. Performed By: #### L 501.63620, L501.9910, L501.9985, L501.9520, L500.4100, L500.4050, L503.0105, L506.0400, L501.5200, L100.0100 ####[facility] [address] [place], [place], [phone] BUN/CRE 11.9 RATIO Normal 10-20 [facility] Comment on above: Performed By: #### L 501.13554, L501.9910, L501.9985, L501.9520, L500.4100, L500.4050, L503.0105, L506.0400, L501.5200, L100.0100 ####[facility] [address] [place], [place], [phone] CA,Total 9.7 mg/dL Normal 8.5-10.1 [facility] Comment on above: Performed By: #### L 501.31593, L501.9910, L501.9985, L501.9520, L500.4100, L500.4050, L503.0105, L506.0400, L501.5200, L100.0100 ####[facility] [address] [place], [place], [phone] Chloride [Moles/Vol] 105 mmol/L Normal 98-107 [facility] Comment on above: Performed By: #### L 501.48993, L501.9910, L501.9985, L501.9520, L500.4100, L500.4050, L503.0105, L506.0400, L501.5200, L100.0100 ####[facility] [address] [place], [place], [phone]) CO2 [Moles/Vol] 25.0 mmol/L Normal 21.0-32.0 [facility] Comment on above: Performed By: #### L 501.63175, L501.9910, L501.9985, L501.9520, L500.4100, L500.4050, L503.0105, L506.0400, L501.5200, L100.0100 ####[facility] [address] [place], [address] Creatinine [Mass/Vol] 1.68 mg/dL High 0.70-1.30 [facility] Comment on above: Result Comment: The validity of the calculated GFR GFRAA in patients over70 years has not been determined. Clinical correlation isessential. Performed By: #### L 501.21375, L501.9910, L501.9985, L501.9520, L500.4100, L500.4050, L503.0105, L506.0400, L501.5200, L100.0100 ####[facility] [address] [place], [address] EST GFR - AA 50 mL/min Low >60 [facility] Comment on above: Result Comment: Afri can Hungarian GFR Calc Performed By: #### L 501.30884, L501.9910, L501.9985, L501.9520, L500.4100, L500.4050, L503.0105, L506.0400, L501.5200, L100.0100 ####[facility] [address] [place], [address] GAP 11 Normal 5-15 [facility] Comment on above: Performed By: #### L 501.97166, L501.9910, L501.9985, L501.9520, L500.4100, L500.4050, L503.0105, L506.0400, L501.5200, L100.0100 ####[facility] [address] [place], [address] GFR/1.73 sq M.predicted among non-blacks MDRD (S/P/Bld) [Vol rate/Area] 41 mL/min/{1.73_m2} Low >60 [facility] Comment on above: Result Comment: Non- GFR Calc Performed By: #### L 501.87579, L501.9910, L501.9985, L501.9520, L500.4100, L500.4050, L503.0105, L506.0400, L501.5200, L100.0100 ####[facility] [address] [place], [address] Globulin (S) [Mass/Vol] 3.2 g/dL Normal 2.2-4.2 [facility] Comment on above: Performed By: #### L 501.11143, L501.9910, L501.9985, L501.9520, L500.4100, L500.4050, L503.0105, L506.0400, L501.5200, L100.0100 ####[facility] [address] [place], [address] Glucose [Mass/Vol] 94 mg/dL Normal 74-106 [facility] Comment on above: Performed By: #### L 501.09301, L501.9910, L501.9985, L501.9520, L500.4100, L500.4050, L503.0105, L506.0400, L501.5200, L100.0100 ####[facility] [id number] [place], [address] Potassium [Moles/Vol] 3.4 mmol/L Low 3.5-5.1 [facility] Comment on above: Performed By: #### L 501.90669, L501.9910, L501.9985, L501.9520, L500.4100, L500.4050, L503.0105, L506.0400, L501.5200, L100.0100 ####[facility] [address] [place], [address] Sodium [Moles/Vol] 141 mmol/L Normal 136-145 [facility] Comment on above: Performed By: #### L 501.57801, L501.9910, L501.9985, L501.9520, L500.4100, L500.4050, L503.0105, L506.0400, L501.5200, L100.0100 ####[facility] [id number] [place], [address] T PROT 7.0 g/dL Normal 6.4-8.2 [facility] Comment on above: Performed By: #### L 501.04167, L501.9910, L501.9985, L501.9520, L500.4100, L500.4050, L503.0105, L506.0400, L501.5200, L100.0100 ####[facility] [id number] [place], [place], [id number] Urea nitrogen [Mass/Vol] 20 mg/dL High 01-03 [facility] Comment on above: Performed By: #### L 501.08790, L501.9910, L501.9985, L501.9520, L500.4100, L500.4050, L503.0105, L506.0400, L501.5200, L100.0100 ####[facility] [address] [place], [address] Free T3on 05-09-2024 Free T3 [Mass/Vol] 2.5 pg/mL Normal 2.18-3.98 [facility] Comment on above: Performed By: #### L 501.22370, L501.9910, L501.9985, L501.9520, L500.4100, L500.4050, L503.0105, L506.0400, L501.5200, L100.0100 ####[facility] [address] [place], [place], [address] Hemoglobin A1con 05-09-2024 HbA1c (Bld) [Mass fraction] 6.6 % High 3.8-5.6 [facility] Comment on above: Result Comment: Norm al < 5.7 % Prediabetic 5.7 - 6.4 % Diabetic >or= 6.5 % Please note range changes. Performed By: #### L 501.92378, L501.9910, L501.9985, L501.9520, L500.4100, L500.4050, L503.0105, L506.0400, L501.5200, L100.0100 ####[facility] [address] [place], [address] Iron+Iron Binding Capacityon 05-09-2024 Iron [Mass/Vol] 28 ug/dL Low 65-175 [facility] Comment on above: Performed By: #### L 503.6030 ####[facility] [address] [place], [address] IRON SATURATION 6.2 Low 15.0-55.0 [facility] Comment on above: Performed By: #### L 503.6030 ####[facility] [address] [place], [address] TIBC 454 ug/dL High 250-450 [facility] Comment on above: Performed By: #### L 503.6030 ####[facility] [address] [place], [address] Lipid Profileon 05-09-2024 Cholesterol [Mass/Vol] 143 mg/dL Normal 200 [facility] Comment on above: Result Comment: <200 mg/dL Desirable 200-240 mg/dL Borderline >240 mg/dL High Risk Performed By: #### L 501.81837, L501.9910, L501.9985, L501.9520, L500.4100, L500.4050, L503.0105, L506.0400, L501.5200, L100.0100 ####[facility] [address] [place], [address] Cholesterol in HDL [Mass/Vol] 46 mg/dL Normal [facility] Comment on above: Result Comment: The drugs N-Acetylcysteine and Metamizole may falselydepress this assay. Reference Range HDL <40 mg/dL Low HDL Cholesterol HDL >or= 60 mg/dL High HDL Cholesterol Performed By: #### L 501.70841, L501.9910, L501.9985, L501.9520, L500.4100, L500.4050, L503.0105, L506.0400, L501.5200, L100.0100 ####[facility] [address] [place], [address] Cholesterol in LDL [Mass/Vol] 68 mg/dL Normal 0-130 [facility] Comment on above: Performed By: #### L 501.42523, L501.9910, L501.9985, L501.9520, L500.4100, L500.4050, L503.0105, L506.0400, L501.5200, L100.0100 ####[facility] [address] [place], [place], [phone] Cholesterol in VLDL [Mass/Vol] 29 mg/dL Normal 5-40 [facility] Comment on above: Performed By: #### L 501.22722, L501.9910, L501.9985, L501.9520, L500.4100, L500.4050, L503.0105, L506.0400, L501.5200, L100.0100 ####[facility] [address] [place], [place], [phone] Triglyceride [Mass/Vol] 144 mg/dL Normal [facility] Comment on above: Result Comment: The drugs N-Acetylcysteine and Metamizole may falselydepress this assay.Serum Triglycerides Reference Interval Normal <150 mg/dL Borderline high 150 - 199 mg/dL High 200 - 499 mg/dL Very High > or = 500 mg/dL Performed By: #### L 501.75918, L501.9910, L501.9985, L501.9520, L500.4100, L500.4050, L503.0105, L506.0400, L501.5200, L100.0100 ####[facility] [address] [place], [place], [phone] Magnesiumon 05-09-2024 Magnesium [Mass/Vol] 1.8 mg/dL Normal 1.6-2.6 [facility] Comment on above: Performed By: #### L 501.22696, L501.9910, L501.9985, L501.9520, L500.4100, L500.4050, L503.0105, L506.0400, L501.5200, L100.0100 ####[facility] [address] [place], [place], [phone] PSA,Total - Annual Screenon 05-09-2024 PSA,TOT SCREEN 1.04 ng/mL Normal 0.00-4.00 [facility] Comment on above: Result Comment: This test was performed using the TPSA assay method for [employer] chemistry system. Values obtained with differentassay methods cannot be used interchangably.When changing PSA assays in the course of monitoring apatient, additional sequential testing should be carriedout to confirm baseline values. Performed By: #### L 501.57091, L501.9910, L501.9985, L501.9520, L500.4100, L500.4050, L503.0105, L506.0400, L501.5200, L100.0100 ####[facility] [address] [place], [place], [phone] T4 Free Directon 05-09-2024 T4 FREE DIRECT 0.91 ng/dL Normal 0.76-1.46 [facility] Comment on above: Performed By: #### L 501.64243, L501.9910, L501.9985, L501.9520, L500.4100, L500.4050, L503.0105, L506.0400, L501.5200, L100.0100 ####[facility] [address] [place], [place], [phone] Thyroid Stim Hormone (TSH)on 05-09-2024 TSH 2.880 uIU/mL Normal 0.358-3.740 [facility] Comment on above: Performed By: #### L 501.47404, L501.9910, L501.9985, L501.9520, L500.4100, L500.4050, L503.0105, L506.0400, L501.5200, L100.0100 ####[facility] [address] [place], [place], [phone] Vitamin B12on 05-09-2024 Cobalamin (Vitamin B12) [Mass/Vol] pg/mL High 211-911 [facility] Comment on above: Performed By: #### L 501.63113, L501.9910, L501.9985, L501.9520, L500.4100, L500.4050, L503.0105, L506.0400, L501.5200, L100.0100 ####[facility] [address] [place], [place], [phone] Office Visit Reporton 2023 Office Visit Report Normal [facility] Neurology Visit Reporton Neurology Visit Report Normal [facility] Pulmonary Visit Reporton Pulmonary Visit Report Normal [facility] Cardiology Visit Reporton Cardiology Visit Report Normal [facility] MR/BMS.IMBon 03-07-2024 MR/BMS.IMB Normal [facility] CNOVon 02-29-2024 CNOV Office Visit (PODIWS ) OLMAN SYED ([id number]) 1935 M Date Time Provider Department 02/29/24 [...] Objective: Patient presents to clinic ambulating in [facility] Vasc: DP and PT pulses are [...] Barbie Nova DPM Referring Provider: BARBIE NOVA [[id number]] Allergies As of Date: 02/29/2024 Noted Allergy [...] Inhale 2 (more content not included)... Normal [facility] Re-Evaluation - PT (1)on Re-Evaluation - PT (1) Normal [facility] Inital Evaluation (1) - PTon 01-19-2024 Inital Evaluation (1) - PT Normal [facility] Office Visit Reporton 2023 Office Visit Report Normal [facility] L/S Spine Comp/w Bending Vie wson 01-10-2024 L/S Spine Comp/w Bending Views Normal [facility] Absolute lymphocyte countOrd ered By: Keron Maciel on 09-22-2023 Lymphocytes Auto (Unsp spec) [#/Vol] 1.66 10*3/uL 0.83-4.51 [facility] Automated lymphocyte count a s percentage of total leukocytesOrdered By: Keron Maciel on 09-22-2023 Lymphocytes/100 WBC Auto (Unsp spec) 20.4 % 19-41 [facility] Basophil percentageOrdered B y: Keron Maciel on 09-22-2023 Basophils/100 WBC (Bld) 0.4 % 0-1 [facility] Bilirubin [Mass/Vol] 0.70 mg/dL 0.20-1.00 [facility] Comment on above: For patients on eltr ombopag therapy, use of Dimension [place] TBIL is not recommended. Chloride [Moles/Vol] 100 mmol/L 98-107 [facility] Cholesterol [Mass/Vol] 154 mg/dL <200 [facility] Comment on above: <200 mg/dL Desirable 200-240 mg/dL Borderline >240 mg/dL High Risk Eosinophils/100 WBC (Bld) 1.0 % 0-5 [facility] Glucose [Mass/Vol] 126 mg/dL 74-106 [facility] Comment on above: Fasting Glucose resu lt greater than or equal to 126 mg/dL suggests DIABETES MELLITUS per A.D.A. criteria. Hemoglobin (Bld) [Mass/Vol] 13.3 g/dL 13.0-16.5 [facility] Monocytes/100 WBC (Bld) 8.7 % 0-10 [facility] Neutrophils (Bld) [#/Vol] 5.5 10*3/uL 2.0-7.7 [facility] Neutrophils/100 WBC (Bld) 67.8 % 47-70 [facility] Potassium [Moles/Vol] 4.5 mmol/L 3.5-5.1 [facility] Protein [Mass/Vol] 7.2 g/dL 6.4-8.2 [facility] Sodium [Moles/Vol] 136 mmol/L 136-145 [facility] Triglyceride [Mass/Vol] 145 mg/dL <199 [facility] Comment on above: The drugs N-Acetylcy steine and Metamizole may falsely depress this assay.Serum Triglycerides Reference Interval Normal <150 mg/dL Borderline high 150 - 199 mg/dL High 200 - 499 mg/dL Very High > or = 500 mg/dL WBC (Bld) [#/Vol] 8.1 10*3/uL 4.4-11.0 [facility] Determination of erythrocyte mean corpuscular volume (MCV)Ordered By: Keron Maciel on 09-22-2023 MCV (RBC) [Entitic vol] 89.0 fL 80-94 [facility] Erythrocyte distribution wid th ratioOrdered By: Keron Maciel on 09-22-2023 Erythrocyte distribution width (RBC) [Ratio] 16.9 % 11.6-14.6 [facility] Erythrocyte distribution wid th standard deviationOrdered By: Keron Maciel on 09-22-2023 Erythrocyte distribution width (RBC) [Entitic vol] 54.4 fL 35.1-43.9 [facility] Hematocrit Auto (Bld) [Volum e fraction]Ordered By: Keron Maciel on 09-22-2023 Hematocrit (Bld) [Volume fraction] 41.1 % 40-54 [facility] Immature granulocytes/100 WB C Auto (Bld)Ordered By: Keron Maciel on 09-22-2023 Immature granulocytes/100 WBC (Bld) 1.700 % 0.0-0.9 [facility] Comment on above: IG% - Immature Granu locytes (promyelocytes, myelocytes and metamyelocytes) > 1% indicates that a LEFT SHIFT is Present. Laboratory - Chemistry and C hemistry - challengeOrdered By: Keronrichard Maciel on 09-22-2023 Albumin/Globulin [Mass ratio] 1.1 {ratio} 0.9-2.4 [facility] ALP [Catalytic activity/Vol] 32 U/L 45-117 [facility] ALT [Catalytic activity/Vol] 8 U/L 16-61 [facility] Cholesterol in HDL [Mass/Vol] 50 mg/dL >40 [facility] Comment on above: The drugs N-Acetylcy steine and Metamizole may falsely depress this assay. Reference Range HDL <40 mg/dL Low HDL Cholesterol HDL >or= 60 mg/dL High HDL Cholesterol Cholesterol in LDL [Mass/Vol] 75 mg/dL 0-130 [facility] CO2 [Moles/Vol] 29.0 mmol/L 21.0-32.0 [facility] Globulin (S) [Mass/Vol] 3.5 g/dL 2.2-4.2 [facility] Urea nitrogen/Creatinine [Mass ratio] 15.0 mg/mg 10-20 [facility] Laboratory - Hematology and Cell countsOrdered By: Keron Maciel on 09-22-2023 MCH (RBC) [Entitic mass] 28.8 pg 27.0-32.0 [facility] MCHC (RBC) [Mass/Vol] 32.4 g/dL 32-36 [facility] Nucleated RBC/100 WBC (Bld) [Ratio] 0 % 0-5 [facility] Platelet mean volume (Bld) [Entitic vol] 9.0 fL 6.2-12.0 [facility] Platelets (Bld) [#/Vol] 255 10*3/uL 150-450 [facility] No Panel InformationOrdered By: eKron Maciel on 09-22-2023 Estimated GFR (MDRD) Amer 44 mL/min >60 [facility] Comment on above: GFR Calc Estimated GFR (MDRD) Non-Af Amer 37 mL/min >60 [facility] Comment on above: Non- GFR Calc Vitamin D 25-Hydroxy 81.7 ng/mL [facility] Comment on above: Vitamin D 25(OH) Sta tus Range Deficiency <20 ng/mL (50nmol/L) Insufficiency 20 - 30 ng/mL (50 - 75 nmol/L) Sufficiency 30 - 100 ng/mL (75 - 250 nmol/L) Toxicity >100 ng/mL (>250 nmol/L) VLDL Cholesterol 29 mg/dL 5-40 [facility] RBC Auto (Bld) [#/Vol]Ordere d By: Keron Maciel on 09-22-2023 RBC (Bld) [#/Vol] 4.62 10*6/uL 4.6-6.2 [facility] Serum or plasma calcium odilon urement (mass/volume)Ordered By: Keron Maciel on 09-22-2023 Calcium [Mass/Vol] 10.0 mg/dL 8.5-10.1 [facility] Serum or plasma creatinine m easurement (mass/volume)Ordered By: Keron Maciel on 09-22-2023 Creatinine [Mass/Vol] 1.87 mg/dL 0.70-1.30 [facility] Comment on above: The validity of the calculated GFR & GFRAA in patients over 70 years has not been determined. Clinical correlation is essential. Serum or plasma thyroid stim ulating hormone (TSH) measurement (units/volume)Ordered By: Keron Maciel on 09-22-2023 TSH Qn 2.98 uIU/mL 0.358-3.74 [facility] Serum or plasma urea nitroge n measurement (mass/volume)Ordered By: Keron Maciel on 09-22-2023 Urea nitrogen [Mass/Vol] 28 mg/dL 7-18 [facility] Thin prep Papanicolaou smear with manual screeningOrdered By: Keron Maciel on 09-22-2023 Thin prep Papanicolaou smear with manual screening 3.7 g/dL 3.2-5.0 [facility] Thin prep Papanicolaou smear with manual screening 10 U/L 15-37 [facility] Thin prep Papanicolaou smear with manual screening 7 5-15 [facility] Whole blood hemoglobin A1c/t otal hemoglobin ratio (mass fraction)Ordered By: Keron Maciel on 09-22-2023 HbA1c (Bld) [Mass fraction] 6.4 % 3.8-5.6 [facility] Comment on above: Normal < 5.7 % Predi abetic 5.7 - 6.4 % Diabetic >or= 6.5 % Please note range changes. No Panel Informationon 08-10 Influenza Types A,B Rapid (Clinic) Negative [facility] POC SARS CoV-2 Antigen Negative [facility] Absolute lymphocyte countOrd ered By: Junior Duenas on 07-16-2023 Lymphocytes Auto (Unsp spec) [#/Vol] 1.30 10*3/uL 0.83-4.51 [facility] Automated lymphocyte count a s percentage of total leukocytesOrdered By: Junior Duenas on 07-16-2023 Lymphocytes/100 WBC Auto (Unsp spec) 18.3 % 19-41 [facility] Basophil percentageOrdered B y: Junior Duenas on 07-16-2023 Basophils/100 WBC (Bld) 0.8 % 0-1 [facility] Chloride [Moles/Vol] 105 mmol/L 98-107 [facility] Eosinophils/100 WBC (Bld) 3.2 % 0-5 [facility] Glucose [Mass/Vol] 107 mg/dL 74-106 [facility] Comment on above: Fasting Glucose resu lt from 100 to 125 mg/dL suggests IMPAIRED HOMEOSTASIS per A.D.A. criteria. Hemoglobin (Bld) [Mass/Vol] 12.4 g/dL 13.0-16.5 [facility] Monocytes/100 WBC (Bld) 9.9 % 0-10 [facility] Neutrophils (Bld) [#/Vol] 4.8 10*3/uL 2.0-7.7 [facility] Neutrophils/100 WBC (Bld) 67.2 % 47-70 [facility] Potassium [Moles/Vol] 4.6 mmol/L 3.5-5.1 [facility] Sodium [Moles/Vol] 138 mmol/L 136-145 [facility] WBC (Bld) [#/Vol] 7.1 10*3/uL 4.4-11.0 [facility] Determination of erythrocyte mean corpuscular volume (MCV)Ordered By: Junior Duenas on 07-16-2023 MCV (RBC) [Entitic vol] 90.0 fL 80-94 [facility] Erythrocyte distribution wid th ratioOrdered By: Junior Duenas on 07-16-2023 Erythrocyte distribution width (RBC) [Ratio] 15.5 % 11.6-14.6 [facility] Erythrocyte distribution wid th standard deviationOrdered By: Junior Duenas on 07-16-2023 Erythrocyte distribution width (RBC) [Entitic vol] 51.0 fL 35.1-43.9 [facility] Hematocrit Auto (Bld) [Volum e fraction]Ordered By: Junior Duenas on 07-16-2023 Hematocrit (Bld) [Volume fraction] 38.9 % 40-54 [facility] Immature granulocytes/100 WB C Auto (Bld)Ordered By: Junior Duenas on 07-16-2023 Immature granulocytes/100 WBC (Bld) 0.600 % 0.0-0.9 [facility] Comment on above: IG% - Immature Granu locytes (promyelocytes, myelocytes and metamyelocytes) > 1% indicates that a LEFT SHIFT is Present. Laboratory - Chemistry and C hemistry - challengeOrdered By: Junior Duenas on 07-16-2023 CO2 [Moles/Vol] 23.0 mmol/L 21.0-32.0 [facility] Natriuretic peptide B (Bld) [Mass/Vol] 76.2 pg/mL 0-100 [facility] Urea nitrogen/Creatinine [Mass ratio] 15.5 mg/mg 10-20 [facility] Laboratory - Hematology and Cell countsOrdered By: Junior Duenas on 07-16-2023 MCH (RBC) [Entitic mass] 28.7 pg 27.0-32.0 [facility] MCHC (RBC) [Mass/Vol] 31.9 g/dL 32-36 [facility] Nucleated RBC/100 WBC (Bld) [Ratio] 0 % 0-5 [facility] Platelets (Bld) [#/Vol] 269 10*3/uL 150-450 [facility] Laboratory - Microbiology an d Antimicrobial susceptibilityOrdered By: Junior Duenas on 07-16-2023 SARS-CoV-2 (COVID-19) RNA VÍCTOR+probe Ql (Unsp spec) [facility] No Panel InformationOrdered By: Junior Duenas on 07-16-2023 Troponin I High Sensitivity 18 pg/mL 3.0-78.0 [facility] Comment on above: Please Note: New Citl[place] t Units and Gender Specific Reference Ranges. For more information see Policy Stat Procedure [place] High Sensitivity Troponin (TNIH) and attachments. D-Dimer Quantitative (PE/DVT) 0.61 FEU/ug/m 0.27-0.49 [facility] Comment on above: D-Dimer ELEVATED (>0 .49): Additional studies and clinicalassessments are indicated to conclude diagnosis of:Deep Vein Thrombosis (DVT) or Pulmonary Embolism (PE)CRITICAL VALUE VERIFIED. CALLED TO JUNIOR DUENAS NP07/16/23 2092 Eliezer Moncada.RESULTS READ BACK BY SAME . Estimated Creatinine Clearance Calc 29.81 ml/min [facility] Estimated GFR (MDRD) Amer 41 mL/min >60 [facility] Comment on above: GFR Calc Estimated GFR (MDRD) Non-Af Amer 34 mL/min >60 [facility] Comment on above: Non- GFR Calc Platelet mean volume Torey-Ec ker (Bld) [Entitic vol]Ordered By: Junior Duenas on 07-16-2023 Platelet mean volume (Bld) [Entitic vol] 9.1 fL 6.2-12.0 [facility] RBC Auto (Bld) [#/Vol]Ordere d By: Junior Duenas on 07-16-2023 RBC (Bld) [#/Vol] 4.32 10*6/uL 4.6-6.2 [facility] Serum or plasma calcium odilon urement (mass/volume)Ordered By: Junior Duenas on 07-16-2023 Calcium [Mass/Vol] 10.0 mg/dL 8.5-10.1 [facility] Serum or plasma creatinine m easurement (mass/volume)Ordered By: Junior Duenas on 07-16-2023 Creatinine [Mass/Vol] 2.00 mg/dL 0.70-1.30 [facility] Comment on above: The validity of the calculated GFR & GFRAA in patients over 70 years has not been determined. Clinical correlation is essential. Serum or plasma urea nitroge n measurement (mass/volume)Ordered By: Junior Duenas on 07-16-2023 Urea nitrogen [Mass/Vol] 31 mg/dL 7-18 [facility] Thin prep Papanicolaou smear with manual screeningOrdered By: Junior Duenas on 07-16-2023 Thin prep Papanicolaou smear with manual screening 10 5-15 [facility] Absolute lymphocyte countOrd ered By: Dr. Maciel on 09-28-2022 Lymphocytes Auto (Unsp spec) [#/Vol] 1.75 10*3/uL 0.83-4.51 [facility] Basophil percentageOrdered B y: Dr. Maciel on 09-28-2022 Basophils/100 WBC (Bld) 0.7 % 0-1 [facility] Bilirubin [Mass/Vol] 0.60 mg/dL 0.20-1.00 [facility] Comment on above: For patients on eltr ombopag therapy, use of Dimension [place] TBIL is not recommended. Chloride [Moles/Vol] 103 mmol/L 98-107 [facility] Cholesterol [Mass/Vol] 152 mg/dL <200 [facility] Comment on above: <200 mg/dL Desirable 200-240 mg/dL Borderline >240 mg/dL High Risk Eosinophils/100 WBC (Bld) 3.8 % 0-5 [facility] Glucose [Mass/Vol] 61 mg/dL 74-106 [facility] Neutrophils (Bld) [#/Vol] 4.0 10*3/uL 2.0-7.7 [facility] Neutrophils/100 WBC (Bld) 58.5 % 47-70 [facility] Potassium [Moles/Vol] 4.2 mmol/L 3.5-5.1 [facility] Protein [Mass/Vol] 6.9 g/dL 6.4-8.2 [facility] Sodium [Moles/Vol] 137 mmol/L 136-145 [facility] Triglyceride [Mass/Vol] 150 mg/dL <199 [facility] Comment on above: The drugs N-Acetylcy steine and Metamizole may falsely depress this assay.Serum Triglycerides Reference Interval Normal <150 mg/dL Borderline high 150 - 199 mg/dL High 200 - 499 mg/dL Very High > or = 500 mg/dL WBC (Bld) [#/Vol] 6.8 10*3/uL 4.4-11.0 [facility] Blood erythrocytes count (nu mber/volume)Ordered By: Dr. Maciel on 09-28-2022 RBC (Bld) [#/Vol] 4.33 10*6/uL 4.6-6.2 [facility] Blood hemoglobin measurement (mass/volume)Ordered By: Dr. Maciel on 09-28-2022 Hemoglobin (Bld) [Mass/Vol] 12.9 g/dL 13.0-16.5 [facility] Blood lymphocytes/100 leukoc ytesOrdered By: Dr. Maciel on 09-28-2022 Lymphocytes/100 WBC (Bld) 25.8 % 19-41 [facility] Blood monocytes/100 leukocyt esOrdered By: Dr. Maciel on 09-28-2022 Monocytes/100 WBC (Bld) 10.6 % 0-10 [facility] Blood platelet mean volumeOr dered By: Dr. Maciel on 09-28-2022 Platelet mean volume (Bld) [Entitic vol] 9.2 fL 6.2-12.0 [facility] Determination of erythrocyte mean corpuscular volume (MCV)Ordered By: Dr. Maciel on 09-28-2022 MCV (RBC) [Entitic vol] 94.7 fL 80-94 [facility] Hematocrit Auto (Bld) [Volum e fraction]Ordered By: Dr. Maciel on 09-28-2022 Hematocrit (Bld) [Volume fraction] 41.0 % 40-54 [facility] Laboratory - Chemistry and C hemistry - challengeOrdered By: Dr. Maciel on 09-28-2022 ALP [Catalytic activity/Vol] 28 U/L 45-117 [facility] ALT [Catalytic activity/Vol] 10 U/L 16-61 [facility] CO2 [Moles/Vol] 29.0 mmol/L 21.0-32.0 [facility] Free T4 [Mass/Vol] 0.94 ng/dL 0.76-1.46 [facility] Globulin (S) [Mass/Vol] 3.2 g/dL 2.2-4.2 [facility] Magnesium [Mass/Vol] 2.0 mg/dL 1.6-2.6 [facility] Urea nitrogen/Creatinine [Mass ratio] 14.7 mg/mg 10-20 [facility] Laboratory - Hematology and Cell countsOrdered By: Dr. Maciel on 09-28-2022 Erythrocyte distribution width (RBC) [Entitic vol] 55.9 fL 35.1-43.9 [facility] Erythrocyte distribution width (RBC) [Ratio] 15.9 % 11.6-14.6 [facility] Immature granulocytes/100 WBC (Bld) 0.600 % 0.0-0.9 [facility] Comment on above: IG% - Immature Granu locytes (promyelocytes, myelocytes and metamyelocytes) > 1% indicates that a LEFT SHIFT is Present. MCH (RBC) [Entitic mass] 29.8 pg 27.0-32.0 [facility] Nucleated RBC/100 WBC (Bld) [Ratio] 0 % 0-5 [facility] MCHC Auto (RBC) [Mass/Vol]Or dered By: Dr. Maciel on 09-28-2022 MCHC (RBC) [Mass/Vol] 31.5 g/dL 32-36 [facility] No Panel InformationOrdered By: Dr. Maciel on 09-28-2022 D-Dimer Quantitative (PE/DVT) 0.33 FEU/ug/m 0.27-0.49 [facility] Comment on above: NORMAL D-Dimer level (<0.50) indicates no DVT or PE. Estimated GFR (MDRD) Amer 55 mL/min >60 [facility] Comment on above: GFR Calc Estimated GFR (MDRD) Non-Af Amer 45 mL/min >60 [facility] Comment on above: Non- GFR Calc Free Triiodothyronine (T3) pg/dL 2.1 pg/mL 2.18-3.98 [facility] Thyroid Stimulating Hormone (TSH) 2.34 uIU/mL 0.358-3.74 [facility] Platelets bldOrdered By: Dr. Maciel on 09-28-2022 Platelets (Bld) [#/Vol] 276 10*3/uL 150-450 [facility] Serum or plasma albumin odilon urement (mass/volume)Ordered By: Dr. Maciel on 09-28-2022 Albumin [Mass/Vol] 3.7 g/dL 3.2-5.0 [facility] Serum or plasma albumin/glob ulin mass ratioOrdered By: Dr. Maciel on 09-28-2022 Albumin/Globulin [Mass ratio] 1.2 {ratio} 0.9-2.4 [facility] Serum or plasma calcium odilon urement (mass/volume)Ordered By: Dr. Maciel on 09-28-2022 Calcium [Mass/Vol] 9.3 mg/dL 8.5-10.1 [facility] Serum or plasma cholesterol in HDL measurement (mass/volume)Ordered By: Dr. Maciel on 09-28-2022 Cholesterol in HDL [Mass/Vol] 57 mg/dL >40 [facility] Comment on above: The drugs N-Acetylcy steine and Metamizole may falsely depress this assay. Reference Range HDL <40 mg/dL Low HDL Cholesterol HDL >or= 60 mg/dL High HDL Cholesterol Serum or plasma cholesterol in VLDL measurement (mass/volume)Ordered By: Dr. Maciel on 09-28-2022 Cholesterol in VLDL [Mass/Vol] 30 mg/dL 5-40 [facility] Serum or plasma creatinine m easurement (mass/volume)Ordered By: Dr. Maciel on 09-28-2022 Creatinine [Mass/Vol] 1.56 mg/dL 0.70-1.30 [facility] Comment on above: The validity of the calculated GFR & GFRAA in patients over 70 years has not been determined. Clinical correlation is essential. Serum or plasma low density lipoprotein (LDL) cholesterol measurement (mass/volume)Ordered By: Dr. Maciel on 09-28-2022 Cholesterol in LDL [Mass/Vol] 65 mg/dL 0-130 [facility] Serum or plasma urea nitroge n measurement (mass/volume)Ordered By: Dr. Maciel on 09-28-2022 Urea nitrogen [Mass/Vol] 23 mg/dL 7-18 [facility] Thin prep Papanicolaou smear with manual screeningOrdered By: Dr. Maciel on 09-28-2022 Thin prep Papanicolaou smear with manual screening 20 U/L 15-37 [facility] Thin prep Papanicolaou smear with manual screening 5 5-15 [facility] Whole blood hemoglobin A1c/t otal hemoglobin ratio (mass fraction)Ordered By: Dr. Maciel on 09-28-2022 HbA1c (Bld) [Mass fraction] 6.3 % 3.8-5.6 [facility] Comment on above: Normal < 5.7 % Predi abetic 5.7 - 6.4 % Diabetic >or= 6.5 % Please note range changes. Basophil percentageon 2021 Chloride [Moles/Vol] 101 mmol/L 98-107 [facility] Work Phone: Glucose [Mass/Vol] 182 mg/dL 74-106 [facility] Work Phone: Comment on above: Fasting Glucose resu lt greater than or equal to 126 mg/dL suggests DIABETES MELLITUS per A.D.A. criteria. Potassium [Moles/Vol] 4.2 mmol/L 3.5-5.1 [facility] Work Phone: Sodium [Moles/Vol] 143 mmol/L 136-145 [facility] Work Phone: Iron measurement (mass/mass) on 03-03-2022 Iron (Unsp spec) [Mass/Mass] 215 ug/dL 65-175 [facility] Work Phone: Laboratory - Chemistry and C hemistry - challengeon 03-03-2022 CO2 [Moles/Vol] 30.0 mmol/L 21.0-32.0 [facility] Work Phone: Urea nitrogen/Creatinine [Mass ratio] 12.4 mg/mg 10-20 [facility] Work Phone: No Panel Informationon 03-03 Estimated GFR (MDRD) Amer 53 mL/min >60 [facility] Work Phone: Comment on above: GFR Calc Estimated GFR (MDRD) Non-Af Amer 44 mL/min >60 [facility] Work Phone: Comment on above: Non- GFR Calc Total Iron Binding Capacity 430 ug/dL 250-450 [facility] Work Phone: [phone] Serum or plasma calcium odilon urement (mass/volume)on 03-03-2022 Calcium [Mass/Vol] 9.7 mg/dL 8.5-10.1 [facility] Work Phone: [phone] Serum or plasma creatinine m easurement (mass/volume)on 03-03-2022 Creatinine [Mass/Vol] 1.61 mg/dL 0.70-1.30 [facility] Work Phone: Comment on above: The validity of the calculated GFR & GFRAA in patients over 70 years has not been determined. Clinical correlation is essential. Serum or plasma iron saturat ion measurement (mass fraction)on 03-03-2022 Iron saturation [Mass fraction] 50.0 % 15.0-55.0 [facility] Work Phone: [phone] Serum or plasma urea nitroge n measurement (mass/volume)on 03-03-2022 Urea nitrogen [Mass/Vol] 20 mg/dL 7-18 [facility] Work Phone: [phone] Thin prep Papanicolaou smear with manual screeningon 03-03-2022 Thin prep Papanicolaou smear with manual screening 12 -15 [facility] Work Phone: [phone] Absolute lymphocyte counton 02-16-2022 Lymphocytes Auto (Unsp spec) [#/Vol] 1.20 10*3/uL 0.83-4.51 [facility] Work Phone: Basophil percentageon 2021 Basophils/100 WBC (Bld) 0.9 % 0-1 [facility] Work Phone: Bilirubin [Mass/Vol] 0.70 mg/dL 0.20-1.00 [facility] Work Phone: Comment on above: For patients on eltr ombopag therapy, use of Dimension [place] TBIL is not recommended. Chloride [Moles/Vol] 103 mmol/L 98-107 [facility] Work Phone: Eosinophils/100 WBC (Bld) 3.2 % 0-5 [facility] Work Phone: Glucose [Mass/Vol] 133 mg/dL 74-106 [facility] Work Phone: Comment on above: Fasting Glucose resu lt greater than or equal to 126 mg/dL suggests DIABETES MELLITUS per A.D.A. criteria. Neutrophils (Bld) [#/Vol] 3.3 10*3/uL 2.0-7.7 [facility] Work Phone: Neutrophils/100 WBC (Bld) 61.6 % 47-70 [facility] Work Phone: Potassium [Moles/Vol] 5.5 mmol/L 3.5-5.1 [facility] Work Phone: [phone] Comment on above: Moderate Hemolysis, Result may be falsely increased. Protein [Mass/Vol] 7.1 g/dL 6.4-8.2 [facility] Work Phone: Sodium [Moles/Vol] 139 mmol/L 136-145 [facility] Work Phone: WBC (Bld) [#/Vol] 5.4 10*3/uL 4.4-11.0 [facility] Work Phone: Blood erythrocytes count (nu mber/volume)on 02-16-2022 RBC (Bld) [#/Vol] 3.85 10*6/uL 4.6-6.2 [facility] Work Phone: Blood hemoglobin measurement (mass/volume)on 02-16-2022 Hemoglobin (Bld) [Mass/Vol] 11.1 g/dL 13.0-16.5 [facility] Work Phone: [phone] Blood lymphocytes/100 leukoc yteson 02-16-2022 Lymphocytes/100 WBC (Bld) 22.4 % 19-41 [facility] Work Phone: [phone] Blood monocytes/100 leukocyt eson 02-16-2022 Monocytes/100 WBC (Bld) 11.2 % 0-10 [facility] Work Phone: [phone] Blood platelet mean volumeon 02-16-2022 Platelet mean volume (Bld) [Entitic vol] 9.1 fL 6.2-12.0 [facility] Work Phone: Determination of erythrocyte mean corpuscular volume (MCV)on 02-16-2022 MCV (RBC) [Entitic vol] 89.9 fL 80-94 [facility] Work Phone: [phone] Hematocrit Auto (Bld) [Volum e fraction]on 02-16-2022 Hematocrit (Bld) [Volume fraction] 34.6 % 40-54 [facility] Work Phone: [phone] Iron measurement (mass/mass) on 02-16-2022 Iron (Unsp spec) [Mass/Mass] 63 ug/dL 65-175 [facility] Work Phone: [phone] Comment on above: Moderate Hemolysis, Result may be falsely increased. Laboratory - Chemistry and C hemistry - challengeon 02-16-2022 ALP [Catalytic activity/Vol] 26 U/L 45-117 [facility] Work Phone: [phone] ALT [Catalytic activity/Vol] 16 U/L 16-61 [facility] Work Phone: [phone] CO2 [Moles/Vol] 27.0 mmol/L 21.0-32.0 [facility] Work Phone: [phone] Free T4 [Mass/Vol] 0.90 ng/dL 0.76-1.46 [facility] Work Phone: [phone] Globulin (S) [Mass/Vol] 3.4 g/dL 2.2-4.2 [facility] Work Phone: [phone] Urea nitrogen/Creatinine [Mass ratio] 13.3 mg/mg 10-20 [facility] Work Phone: [phone] Laboratory - Hematology and Cell countson 02-16-2022 Erythrocyte distribution width (RBC) [Entitic vol] 57.6 fL 35.1-43.9 [facility] Work Phone: [phone] Erythrocyte distribution width (RBC) [Ratio] 17.4 % 11.6-14.6 [facility] Work Phone: [phone] Immature granulocytes/100 WBC (Bld) 0.700 % 0.0-0.9 [facility] Work Phone: [phone] Comment on above: IG% - Immature Granu locytes (promyelocytes, myelocytes and metamyelocytes) > 1% indicates that a LEFT SHIFT is Present. MCH (RBC) [Entitic mass] 28.8 pg 27.0-32.0 [facility] Work Phone: [phone] Nucleated RBC/100 WBC (Bld) [Ratio] 0 % 0-5 [facility] Work Phone: [phone] MCHC Auto (RBC) [Mass/Vol]on 02-16-2022 MCHC (RBC) [Mass/Vol] 32.1 g/dL 32-36 [facility] Work Phone: [phone] Panel Informationon 02-16 Estimated GFR (MDRD) Amer 46 mL/min >60 [facility] Work Phone: [phone] Comment on above: GFR Calc Estimated GFR (MDRD) Non-Af Amer 38 mL/min >60 [facility] Work Phone: [phone] Comment on above: Non- GFR Calc Free Triiodothyronine (T3) pg/dL 2.5 pg/mL 2.18-3.98 [facility] Work Phone: [phone] Prostate Specific Antigen Screen 1.22 ng/mL 0.00-4.00 [facility] Work Phone: Comment on above: This test was perfor med using the TPSA assay method for [employer] chemistry system. Values obtained with differentassay methods cannot be used interchangably.When changing PSA assays in the course of monitoring apatient, additional sequential testing should be carriedout to confirm baseline values. Thyroid Stimulating Hormone (TSH) 2.23 uIU/mL 0.358-3.74 [facility] Work Phone: [phone] Total Iron Binding Capacity 454 ug/dL 250-450 [facility] Work Phone: [phone] Comment on above: Moderate Hemolysis, Result may be falsely increased. Vitamin D 25-Hydroxy 59.5 ng/mL [facility] Work Phone: Comment on above: Vitamin D 25(OH) Sta tus Range Deficiency <20 ng/mL (50nmol/L) Insufficiency 20 - 30 ng/mL (50 - 75 nmol/L) Sufficiency 30 - 100 ng/mL (75 - 250 nmol/L) Toxicity >100 ng/mL (>250 nmol/L) Platelets bldon 02-16-2022 Platelets (Bld) [#/Vol] 289 10*3/uL 150-450 [facility] Work Phone: [phone] Serum or plasma albumin odilon urement (mass/volume)on 02-16-2022 Albumin [Mass/Vol] 3.7 g/dL 3.2-5.0 [facility] Work Phone: [phone] Serum or plasma albumin/glob ulin mass ratioon 02-16-2022 Albumin/Globulin [Mass ratio] 1.1 {ratio} 0.9-2.4 [facility] Work Phone: [phone] Serum or plasma calcium odilon urement (mass/volume)on 02-16-2022 Calcium [Mass/Vol] 10.0 mg/dL 8.5-10.1 [facility] Work Phone: [phone] Serum or plasma creatinine m easurement (mass/volume)on 02-16-2022 Creatinine [Mass/Vol] 1.80 mg/dL 0.70-1.30 [facility] Work Phone: Comment on above: The validity of the calculated GFR & GFRAA in patients over 70 years has not been determined. Clinical correlation is essential. Serum or plasma iron saturat ion measurement (mass fraction)on 02-16-2022 Iron saturation [Mass fraction] 13.9 % 15.0-55.0 [facility] Work Phone: Serum or plasma urea nitroge n measurement (mass/volume)on 02-16-2022 Urea nitrogen [Mass/Vol] 24 mg/dL 7-18 [facility] Work Phone: Thin prep Papanicolaou smear with manual screeningon 02-16-2022 Thin prep Papanicolaou smear with manual screening 30 U/L 15-37 [facility] Work Phone: Comment on above: Moderate Hemolysis, Result may be falsely increased. Thin prep Papanicolaou smear with manual screening 9 5-15 [facility] Work Phone: Laboratory - Hematology and Cell countson 02-14-2022 HbA1c (Bld) [Mass fraction] 6.3 % 4.2-6.3 [facility] Work Phone: Absolute lymphocyte counton 10-26-2021 Lymphocytes Auto (Unsp spec) [#/Vol] 1.47 10*3/uL 0.83-4.51 [facility] Work Phone: Basophil percentageon 2021 Basophils/100 WBC (Bld) 0.7 % 0-1 [facility] Work Phone: Chloride [Moles/Vol] 103 mmol/L 98-107 [facility]: Eosinophils/100 WBC (Bld) 3.4 % 0-5 [facility] Work Phone: Glucose [Mass/Vol] 109 mg/dL 74-106 [facility] Work Phone: Comment on above: Fasting Glucose resu lt from 100 to 125 mg/dL suggests IMPAIRED HOMEOSTASIS per A.D.A. criteria. Neutrophils (Bld) [#/Vol] 3.3 10*3/uL 2.0-7.7 [facility] Work Phone: Neutrophils/100 WBC (Bld) 58.1 % 47-70 [facility] Work Phone: Potassium [Moles/Vol] 4.7 mmol/L 3.5-5.1 [facility] Work Phone: Sodium [Moles/Vol] 138 mmol/L 136-145 [facility]: WBC (Bld) [#/Vol] 5.6 10*3/uL 4.4-11.0 [facility] Work Phone: Blood erythrocytes count (nu mber/volume)on 10-26-2021 RBC (Bld) [#/Vol] 4.32 10*6/uL 4.6-6.2 [facility] Work Phone: Blood hemoglobin measurement (mass/volume)on 10-26-2021 Hemoglobin (Bld) [Mass/Vol] 11.6 g/dL 13.0-16.5 [facility] Work Phone: Blood lymphocytes/100 leukoc yteson 10-26-2021 Lymphocytes/100 WBC (Bld) 26.1 % 19-41 [facility] Work Phone: Blood monocytes/100 leukocyt eson 10-26-2021 Monocytes/100 WBC (Bld) 11.0 % 0-10 [facility] Work Phone: Blood platelet mean volumeon 10-26-2021 Platelet mean volume (Bld) [Entitic vol] 9.3 fL 6.2-12.0 [facility] Work Phone: Determination of erythrocyte mean corpuscular volume (MCV)on 10-26-2021 MCV (RBC) [Entitic vol] 86.1 fL 80-94 [facility] Work Phone: Hematocrit Auto (Bld) [Volum e fraction]on 10-26-2021 Hematocrit (Bld) [Volume fraction] 37.2 % 40-54 [facility] Work Phone: [phone] Laboratory - Chemistry and C hemistry - challengeon 10-26-2021 CO2 [Moles/Vol] 28.0 mmol/L 21.0-32.0 [facility] Work Phone: [phone] Natriuretic peptide B (Bld) [Mass/Vol] 98.4 pg/mL 0-100 [facility] Work Phone: [phone] Urea nitrogen/Creatinine [Mass ratio] 14.4 mg/mg 10-20 [facility] Work Phone: [phone] Laboratory - Hematology and Cell countson 10-26-2021 Erythrocyte distribution width (RBC) [Entitic vol] 50.3 fL 35.1-43.9 [facility] Work Phone: [phone] Erythrocyte distribution width (RBC) [Ratio] 16.2 % 11.6-14.6 [facility] Work Phone: [phone] Immature granulocytes/100 WBC (Bld) 0.700 % 0.0-0.9 [facility] Work Phone: [phone] Comment on above: IG% - Immature Granu locytes (promyelocytes, myelocytes and metamyelocytes) > 1% indicates that a LEFT SHIFT is Present. MCH (RBC) [Entitic mass] 26.9 pg 27.0-32.0 [facility] Work Phone: [phone] Nucleated RBC/100 WBC (Bld) [Ratio] 0 % 0-5 [facility] Work Phone: [phone] MCHC Auto (RBC) [Mass/Vol]on 10-26-2021 MCHC (RBC) [Mass/Vol] 31.2 g/dL 32-36 [facility] Work Phone: [phone] Panel Informationon 10-26 Estimated GFR (MDRD) Amer 56 mL/min >60 [facility] Work Phone: [phone] Comment on above: GFR Calc Estimated GFR (MDRD) Non-Af Amer 46 mL/min >60 [facility] Work Phone: [phone] Comment on above: Non- GFR Calc Platelets bldon 10-26-2021 Platelets (Bld) [#/Vol] 259 10*3/uL 150-450 [facility] Work Phone: Serum or plasma calcium odilon urement (mass/volume)on 10-26-2021 Calcium [Mass/Vol] 10.1 mg/dL 8.5-10.1 [facility] Work Phone: Serum or plasma creatinine m easurement (mass/volume)on 10-26-2021 Creatinine [Mass/Vol] 1.53 mg/dL 0.70-1.30 [facility] Work Phone: Comment on above: The validity of the calculated GFR & GFRAA in patients over 70 years has not been determined. Clinical correlation is essential. Serum or plasma urea nitroge n measurement (mass/volume)on 10-26-2021 Urea nitrogen [Mass/Vol] 22 mg/dL 7-18 [facility] Work Phone: Thin prep Papanicolaou smear with manual screeningon 10-26-2021 Thin prep Papanicolaou smear with manual screening 7 5-15 [facility] Work Phone: Absolute lymphocyte counton 10-13-2021 Lymphocytes Auto (Unsp spec) [#/Vol] 0.99 10*3/uL 0.83-4.51 [facility] Work Phone: Basophil percentageon 2021 Basophils/100 WBC (Bld) 0.9 % 0-1 [facility] Work Phone: [phone] Bilirubin [Mass/Vol] 0.70 mg/dL 0.20-1.00 [facility] Work [phone] Comment on above: For patients on eltr ombopag therapy, use of Dimension [place] TBIL is not recommended. Chloride [Moles/Vol] 102 mmol/L 98-107 [facility] Work Phone: Cholesterol [Mass/Vol] 169 mg/dL <200 [facility] Work Phone: [phone] Comment on above: <200 mg/dL Desirable 200-240 mg/dL Borderline >240 mg/dL High Risk Eosinophils/100 WBC (Bld) 3.1 % 0-5 [facility] Work Phone: Glucose [Mass/Vol] 144 mg/dL 74-106 [facility] Work Phone: [phone] Comment on above: Fasting Glucose resu lt greater than or equal to 126 mg/dL suggests DIABETES MELLITUS per A.D.A. criteria. Neutrophils (Bld) [#/Vol] 2.9 10*3/uL 2.0-7.7 [facility] Work Phone: [phone] Neutrophils/100 WBC (Bld) 62.2 % 47-70 [facility] Work Phone: Potassium [Moles/Vol] 4.2 mmol/L 3.5-5.1 [facility] Work Phone: Protein [Mass/Vol] 7.1 g/dL 6.4-8.2 [facility] Work Phone: [phone] Sodium [Moles/Vol] 137 mmol/L 136-145 [facility] Work Phone: Triglyceride [Mass/Vol] 247 mg/dL <199 [facility] Work Phone: Comment on above: The drugs N-Acetylcy steine and Metamizole may falsely depress this assay.Serum Triglycerides Reference Interval Normal <150 mg/dL Borderline high 150 - 199 mg/dL High 200 - 499 mg/dL Very High > or = 500 mg/dL WBC (Bld) [#/Vol] 4.6 10*3/uL 4.4-11.0 [facility] Work Phone: Blood erythrocytes count (nu mber/volume)on 10-13-2021 RBC (Bld) [#/Vol] 4.18 10*6/uL 4.6-6.2 [facility] Work Phone: Blood hemoglobin measurement (mass/volume)on 10-13-2021 Hemoglobin (Bld) [Mass/Vol] 11.2 g/dL 13.0-16.5 [facility] Work Phone: Blood lymphocytes/100 leukoc yteson 10-13-2021 Lymphocytes/100 WBC (Bld) 21.6 % 19-41 [facility] Work Phone: [phone] Blood monocytes/100 leukocyt eson 10-13-2021 Monocytes/100 WBC (Bld) 11.5 % 0-10 [facility] Work Phone: Blood platelet mean volumeon 10-13-2021 Platelet mean volume (Bld) [Entitic vol] 10.5 fL 6.2-12.0 [facility] Work Phone: Determination of erythrocyte mean corpuscular volume (MCV)on 10-13-2021 MCV (RBC) [Entitic vol] 86.4 fL 80-94 [facility] Work Phone: [phone] Hematocrit Auto (Bld) [Volum e fraction]on 10-13-2021 Hematocrit (Bld) [Volume fraction] 36.1 % 40-54 [facility] Work Phone: Laboratory - Chemistry and C hemistry - challengeon 10-13-2021 ALP [Catalytic activity/Vol] 27 U/L 45-117 [facility] Work Phone: ALT [Catalytic activity/Vol] 21 U/L 16-61 [facility] Work Phone: [phone] CO2 [Moles/Vol] 28.0 mmol/L 21.0-32.0 [facility] Work Phone: Cobalamin (Vitamin B12) [Mass/Vol] 891 pg/mL 211-911 [facility] Work Phone: Free T4 [Mass/Vol] 0.93 ng/dL 0.76-1.46 [facility] Work Phone: Globulin (S) [Mass/Vol] 3.4 g/dL 2.2-4.2 [facility] Work Phone: Urea nitrogen/Creatinine [Mass ratio] 15.2 mg/mg 10-20 [facility] Work Phone: Laboratory - Hematology and Cell countson 10-13-2021 Erythrocyte distribution width (RBC) [Entitic vol] 49.8 fL 35.1-43.9 [facility] Work Phone: [phone] Erythrocyte distribution width (RBC) [Ratio] 15.8 % 11.6-14.6 [facility] Work Phone: [phone] Immature granulocytes/100 WBC (Bld) 0.700 % 0.0-0.9 [facility] Work Phone: [phone] Comment on above: IG% - Immature Granu locytes (promyelocytes, myelocytes and metamyelocytes) > 1% indicates that a LEFT SHIFT is Present. MCH (RBC) [Entitic mass] 26.8 pg 27.0-32.0 [facility] Work Phone: [phone] Nucleated RBC/100 WBC (Bld) [Ratio] 0 % 0-5 [facility] Work Phone: [phone] MCHC Auto (RBC) [Mass/Vol]on 10-13-2021 MCHC (RBC) [Mass/Vol] 31.0 g/dL 32-36 [facility] Work Phone: No Panel Informationon 10-13 Estimated GFR (MDRD) Amer 63 mL/min >60 [facility] Work Phone: [phone] Comment on above: GFR Calc Estimated GFR (MDRD) Non-Af Amer 52 mL/min >60 [facility] Work Phone: [phone] Comment on above: Non- GFR Calc Free Triiodothyronine (T3) pg/dL 2.2 pg/mL 2.18-3.98 [facility] Work Phone: [phone] Thyroid Stimulating Hormone (TSH) 2.15 uIU/mL 0.358-3.74 [facility] Work Phone: [phone] Vitamin D 25-Hydroxy 67.7 ng/mL [facility] Work Phone: [phone] Comment on above: Vitamin D 25(OH) Sta tus Range Deficiency <20 ng/mL (50nmol/L) Insufficiency 20 - 30 ng/mL (50 - 75 nmol/L) Sufficiency 30 - 100 ng/mL (75 - 250 nmol/L) Toxicity >100 ng/mL (>250 nmol/L) Platelets bldon 10-13-2021 Platelets (Bld) [#/Vol] 238 10*3/uL 150-450 [facility] Work Phone: Serum or plasma albumin odilon urement (mass/volume)on 10-13-2021 Albumin [Mass/Vol] 3.7 g/dL 3.2-5.0 [facility] Work Phone: Serum or plasma albumin/glob ulin mass ratioon 10-13-2021 Albumin/Globulin [Mass ratio] 1.1 {ratio} 0.9-2.4 [facility] Work Phone: Serum or plasma calcium odilon urement (mass/volume)on 10-13-2021 Calcium [Mass/Vol] 9.5 mg/dL 8.5-10.1 [facility] Work Phone: Serum or plasma cholesterol in HDL measurement (mass/volume)on 10-13-2021 Cholesterol in HDL [Mass/Vol] 41 mg/dL >40 [facility] Work Phone: Comment on above: The drugs N-Acetylcy steine and Metamizole may falsely depress this assay. Reference Range HDL <40 mg/dL Low HDL Cholesterol HDL >or= 60 mg/dL High HDL Cholesterol Serum or plasma cholesterol in VLDL measurement (mass/volume)on 10-13-2021 Cholesterol in VLDL [Mass/Vol] 49 mg/dL 5-40 [facility] Work Phone: Serum or plasma creatinine m easurement (mass/volume)on 10-13-2021 Creatinine [Mass/Vol] 1.38 mg/dL 0.70-1.30 [facility] Work Phone: Comment on above: The validity of the calculated GFR & GFRAA in patients over 70 years has not been determined. Clinical correlation is essential. Serum or plasma low density lipoprotein (LDL) cholesterol measurement (mass/volume)on 10-13-2021 Cholesterol in LDL [Mass/Vol] 79 mg/dL 0-130 [facility] Work Phone: Serum or plasma urea nitroge n measurement (mass/volume)on 10-13-2021 Urea nitrogen [Mass/Vol] 21 mg/dL 7-18 [facility] Work Phone: Thin prep Papanicolaou smear with manual screeningon 10-13-2021 Thin prep Papanicolaou smear with manual screening 17 U/L 15-37 [facility] Work Phone: Thin prep Papanicolaou smear with manual screening 7 5-15 [facility] Work Phone: Laboratory - Hematology and Cell countson 09-07-2021 HbA1c (Bld) [Mass fraction] 7.7 % [facility] Work Phone: Laboratory - Chemistry and C hemistry - challengeon 06-22-2021 Cobalamin (Vitamin B12) [Mass/Vol] 717 pg/mL 211-911 [facility] Work Phone: Office Visit: abdominal pain on 05-09-2017 Documentation of current medications (procedure) Done Invalid Interpretation Code [facility] [employer] Work Phone: Fall risk assessment No Invalid Interpretation Code [facility] [employer] Work Phone: Tobacco smoking status NHIS Never Invalid Interpretation Code [facility] [employer] Work Phone: Tobacco use CPHS Former smoker Invalid Interpretation Code [facility] [employer] Work Phone: Lab Report: BNP,B-Type NATRI URETIC PEPTIDEon 01-20-2017 BNP 20.0 pg/mL Invalid Interpretation Code 0-100 [facility] [employer] Work Phone: Lab Report: Basic Metabolic Profile (BMP)on 01-20-2017 Anion gap 7 mmol/L Invalid Interpretation Code 5-15 [facility] [employer] Work Phone: BUN/Creatinine Ratio 14.6 RATIO Invalid Interpretation Code 10-20 [facility] [employer] Work Phone: Calcium 10.0 mg/dL Invalid Interpretation Code 8.5-10.1 [facility] [employer] Work Phone: Chloride 101 mmol/L Invalid Interpretation Code 98-107 [facility] [employer] Work Phone: [phone] CO2 30.0 mmol/L Invalid Interpretation Code 21.0-32.0 [facility] [employer] Work Phone: [phone] Creatinine 1.30 mg/dL Invalid Interpretation Code 0.70-1.30 [facility] [employer] Work Phone: [phone] eGFR (non-black) 68 mL/min/{1.73_m2} Invalid Interpretation Code >60 [facility] [employer] Work Phone: [phone] eGFR (non-black) 57 mL/min/{1.73_m2} Low >60 [facility] [employer] Work Phone: [phone] Glucose mass conc 110 mg/dL Invalid Interpretation Code 70-110 [facility] [employer] Work Phone: [phone] Potassium molar conc 4.5 mmol/L Invalid Interpretation Code 3.5-5.1 [facility] [employer] Work Phone: [phone] Sodium 138 mmol/L Invalid Interpretation Code 136-145 [facility] [employer] Work Phone: [phone] Urea nitrogen 19 mg/dL High 7-18 [facility] [employer] Work Phone: [phone] Lab Report: CBC W/Diff, Auto matedon 01-20-2017 Absolute Neut 3.3 X10 3/UL Invalid Interpretation Code 2.0-7.7 [facility] [employer] Work Phone: Basophils/100 WBC Auto (Bld) 1.0 % Invalid Interpretation Code 0-1 [facility] [employer] Work Phone: [phone] Eosinophils/100 leukocytes 5.6 % High 0-5 [facility] [employer] Work Phone: [phone] Erythrocyte distribution width Auto Ratio (RBC) 13.9 % Invalid Interpretation Code 11.6-14.6 [facility] [employer] Work Phone: [phone] Erythrocytes (RBC) 4.45 10*6/uL Low 4.6-6.2 [facility] [employer] Work Phone: Hematocrit (HCT) 42.4 % Invalid Interpretation Code 40-54 [facility] [employer] Work Phone: [phone] Hemoglobin mass conc (Bld) 14.0 g/dL Invalid Interpretation Code 13.0-16.5 [facility] [employer] Work Phone: Immature granulocytes/100 WBC (Bld) 0.700 % Invalid Interpretation Code 0.0-0.9 [facility] [employer] Work Phone: Lymphocytes 1.55 X10 3/UL Invalid Interpretation Code 0.83-4.51 [facility] [employer] Work Phone: Lymphocytes/100 leukocytes 27.1 % Invalid Interpretation Code 19-41 [facility] [employer] Work Phone: MCH 31.5 pg Invalid Interpretation Code 27.0-32.0 [facility] [employer] Work Phone: MCHC mass conc (RBC) 33.0 G/GL Invalid Interpretation Code 32-36 [facility] [employer] Work Phone: [phone] MCV 95.3 fL High 80-94 [facility] [employer] Work Phone: Monocytes/100 leukocytes 7.5 % Invalid Interpretation Code 0-10 [facility] [employer] Work Phone: Neutrophils/100 WBC Auto (Bld) 58.1 % Invalid Interpretation Code 47-70 [facility] [employer] Work Phone: Platelets 185 10*3/mm3 Invalid Interpretation Code 150-450 [facility] [employer] Work Phone: PMV by Ismael 9.8 fL Invalid Interpretation Code 6.2-12.0 [facility] [employer] Work Phone: RDW SD 48.2 fL High 35.1-43.9 [facility] [employer] Work Phone: WBC (Leukocytes) 5.7 10*3/uL Invalid Interpretation Code 4.4-11.0 [facility] [employer] Work Phone: Clinical Lists Update: Prelo derrick helper 08-31-2016 Left ventricular Ejection fraction 55 % Invalid Interpretation Code [facility] [employer] Work Phone: Lab Report: Ferritinon 03-21 Ferritin 7 ng/mL Low 26-388 [facility] [employer] Work Phone: Lab Report: Iron+Iron Bindin g Capacityon 03-21-2016 Iron 24 ug/dL Low 65-175 [facility] [employer] Work Phone: iron binding capacity, total 512 ug/dL High 250-450 [facility] [employer] Work Phone: iron saturation percent, serum 4.7 % Low 15.0-55.0 [facility] [employer] Work Phone: Lab Report: Retic Panelon RET-HE 22.4 pg Low 30-35 [facility] [employer] Work Phone: Reticulocytes/100 erythrocytes 1.25 % Invalid Interpretation Code 0.5-1.5 [facility] [employer] Work Phone: Replaced Document: Nadiramark E CG Observationson 03-08-2016 BUN (urea nitrogen) Sinus Rhythm -Right bundle branch block. ABNORMAL Invalid Interpretation Code [facility] [employer] Work Phone: EKG QRS axis -12 deg Invalid Interpretation Code [facility] [employer] Work Phone: P [place] 40 deg Invalid Interpretation Code [facility] [employer] Work Phone: WA Interval 138 ms Invalid Interpretation Code [facility] [employer] Work Phone: Pulse (Heart Rate) 76 /min Invalid Interpretation Code [facility] [employer] Work Phone: QRS Duration 136 ms Invalid Interpretation Code [facility] [employer] Work Phone: QT Interval new path ms Invalid Interpretation Code [facility] [employer] Work Phone: T [place] -1 deg Invalid Interpretation Code [facility] [employer] Work Phone: Lab Report: Lipid Profileon 10-19-2015 Cholesterol 140 mg/dL Invalid Interpretation Code 200 [facility] [employer] Work Phone: HDL Cholesterol 35 mg/dL Low [facility] [employer] Work Phone: LDL Cholesterol 72 mg/dL Invalid Interpretation Code 0-130 [facility] [employer] Work Phone: Triglyceride 163 mg/dL Invalid Interpretation Code [facility] [employer] Work Phone: very low density lipoproteins 33 mg/dL Invalid Interpretation Code 5-40 [facility] [employer] Work Phone: Lab Report: Liver Profileon 10-19-2015 Alanine aminotransferase (ALT) 38 U/L Invalid Interpretation Code 12-78 [facility] [employer] Work Phone: Albumin 3.9 g/dL Invalid Interpretation Code 3.4-5.0 [facility] [employer] Work Phone: Alkaline phosphatase (ALP) 37 U/L Low 50-136 [facility] [employer] Work Phone: Aspartate aminotransferase (AST) 30 U/L Invalid Interpretation Code 15-37 [facility] [employer] Work Phone: Bilirubin (direct) 0.14 mg/dL Invalid Interpretation Code 0.00-0.30 [facility] [employer] Work Phone: Bilirubin (total) 0.60 mg/dL Invalid Interpretation Code 0.20-1.00 [facility] [employer] Work Phone: Globulin 3.1 g/dL Invalid Interpretation Code 2.3-3.5 [facility] [employer] Work Phone: Protein 7.0 g/dL Invalid Interpretation Code 6.4-8.2 [facility] [employer] Work Phone: Office Visit: [facility] 08-27-19 16 Fall risk assessment Invalid Interpretation Code [facility] [employer] Work Phone: Office Visiton 05-29-2014 cardiac risk group C Invalid Interpretation Code [facility] [employer] Work Phone: General cardiovascular disease 10Y risk [#] [place].D'Agostino N/A Invalid Interpretation Code [facility] [employer] Work Phone: Smoking cessation education (procedure) yes Invalid Interpretation Code [facility] [employer] Work Phone: Vital Signs Date Time Vital Sign Value Performing Clinician Facility 01-07-2025 03:21-0400 Body temperature 98.4 [degF] Dr. Keron Maciel MD Work Phone: [facility] 01-07-2025 03:21-0400 Diastolic blood pressure 87 mm[Hg] Dr. Keron Maciel MD Work Phone: [facility] 01-07-2025 03:21-0400 Heart rate 96 /min Dr. Keron Maciel MD Work Phone: [facility] 01-07-2025 03:21-0400 Respiratory rate 18 /min Dr. Keron Maciel MD Work Phone: [facility] 01-07-2025 03:21-0400 SaO2% (BldA) [Mass fraction] 98 % Dr. Keron Maciel MD Work Phone: [facility] 01-07-2025 03:21-0400 Systolic blood pressure 157 mm[Hg] Dr. Keron Maciel MD Work Phone: [facility] 01-07-2025 01:05-0400 Body height 162.[address] Keron Maciel MD Work Phone: [facility] 01-07-2025 01:05-0400 Body mass index (BMI) [Ratio] 38.8 kg/m2 Dr. Keron Maciel MD Work Phone: [facility] 01-07-2025 01:05-0400 Body weight 102.[address] Keron Maciel MD Work Phone: [facility] 01-06-2025 14:06-0400 Body height 162.[address] Keron Maciel MD Work Phone: [facility] 01-06-2025 14:06-0400 Body mass index (BMI) [Ratio] 38.6 kg/m2 Dr. Keron Maciel MD Work Phone: [facility] 01-06-2025 14:06-0400 Body temperature 98.4 [degF] Dr. Keron Maciel MD Work Phone: [facility] 01-06-2025 14:06-0400 Body weight 102.[address] Keron Maciel MD Work Phone: [facility] 01-06-2025 14:06-0400 Diastolic blood pressure 75 mm[Hg] Dr. Keron Maciel MD Work Phone: [facility] 01-06-2025 14:06-0400 Heart rate 63 /min Dr. Keron Maciel MD Work Phone: [facility] 01-06-2025 14:06-0400 Respiratory rate 16 /min Dr. Keron Maciel MD Work Phone: [facility] 01-06-2025 14:06-0400 SaO2% (BldA) [Mass fraction] 94 % Dr. Keron Maciel MD Work Phone: [facility] 01-06-2025 14:06-0400 Systolic blood pressure 134 mm[Hg] Dr. Keron Maciel MD Work Phone: [facility] 12-31-2024 17:18-0400 Body temperature 98.8 [degF] Dr. Keron Maciel MD Work Phone: [facility] 12-31-2024 17:18-0400 Diastolic blood pressure 96 mm[Hg] Dr. Keron Maciel MD Work Phone: [facility] 12-31-2024 17:18-0400 Heart rate 69 /min Dr. Keron Maciel MD Work Phone: [facility] 12-31-2024 17:18-0400 Respiratory rate 16 /min Dr. Keron Maciel MD Work Phone: [facility] 12-31-2024 17:18-0400 SaO2% (BldA) [Mass fraction] 96 % Dr. Keron Maciel MD Work Phone: [facility] 12-31-2024 17:18-0400 Systolic blood pressure 148 mm[Hg] Dr. Keron Maciel MD Work Phone: [facility] 12-31-2024 14:26-0400 Body height 162.[address] Keron Maciel MD Work Phone: [facility] 12-31-2024 14:26-0400 Body mass index (BMI) [Ratio] 39.1 kg/m2 Dr. Keron Maciel MD Work Phone: [facility] 12-31-2024 14:26-0400 Body weight 103.[address] Keron Maciel MD Work Phone: [facility] 12-30-2024 11:20-0400 Body height 160.[address] Keron Maciel MD Work Phone: [facility] 12-30-2024 11:20-0400 Body mass index (BMI) [Ratio] 39.8 kg/m2 Dr. Keron Maciel MD Work Phone: [facility] 12-30-2024 11:20-0400 Body temperature 98.4 [degF] Dr. Keron Maciel MD Work Phone: [facility] 12-30-2024 11:20-0400 Body weight 102.[address] Keron Maciel MD Work Phone: [facility] 12-30-2024 11:20-0400 Diastolic blood pressure 79 mm[Hg] Dr. Keron Maciel MD Work Phone: [facility] 12-30-2024 11:20-0400 Heart rate 74 /min Dr. Keron Maciel MD Work Phone: [facility] 12-30-2024 11:20-0400 Respiratory rate 16 /min Dr. Keron Maciel MD Work Phone: [facility] 12-30-2024 11:20-0400 SaO2% (BldA) [Mass fraction] 94 % Dr. Keron Maciel MD Work Phone: [facility] 12-30-2024 11:20-0400 Systolic blood pressure 144 mm[Hg] Dr. Keron Maciel MD Work Phone: [facility] 12-23-2024 13:40-0400 Body height 160.[address] Keron Maciel MD Work Phone: [facility] 12-23-2024 13:40-0400 Body mass index (BMI) [Ratio] 40.9 kg/m2 Dr. Keron Maciel MD Work Phone: [facility] 12-23-2024 13:40-0400 Body weight 104.[address] Keron Maciel MD Work Phone: [facility] 12-23-2024 13:40-0400 Diastolic blood pressure 67 mm[Hg] Dr. Keron Maciel MD Work Phone: [facility] 12-23-2024 13:40-0400 Heart rate 64 /min Dr. Keron Maciel MD Work Phone: [facility] 12-23-2024 13:40-0400 Respiratory rate 20 /min Dr. Keron Maciel MD Work Phone: [facility] 12-23-2024 13:40-0400 SaO2% (BldA) [Mass fraction] 95 % Dr. Keron Maciel MD Work Phone: [facility] 12-23-2024 13:40-0400 Systolic blood pressure 108 mm[Hg] Dr. Keron Maciel MD Work Phone: [facility] 12-21-2024 22:03-0400 Diastolic blood pressure 92 mm[Hg] Dr. Keron Maciel MD Work Phone: [facility] 12-21-2024 22:03-0400 Heart rate 86 /min Dr. Keron Maciel MD Work Phone: [facility] 12-21-2024 22:03-0400 Respiratory rate 18 /min Dr. Keron Maciel MD Work Phone: [facility] 12-21-2024 22:03-0400 SaO2% (BldA) [Mass fraction] 98 % Dr. Keron Maciel MD Work Phone: [facility] 12-21-2024 22:03-0400 Systolic blood pressure 165 mm[Hg] Dr. Keron Maciel MD Work Phone: [facility] 12-21-2024 20:36-0400 Body temperature 98 [degF] Dr. Keron Maciel MD Work Phone: [facility] 12-21-2024 16:08-0400 Body mass index (BMI) [Ratio] 40.8 kg/m2 Dr. Keron Maciel MD Work Phone: [facility] 12-21-2024 16:08-0400 Body weight 104.[address] Keron Maciel MD Work Phone: [facility] 12-21-2024 15:35-0400 Body height 160.[address] Keron Maciel MD Work Phone: [facility] 12-09-2024 14:04-0400 Body height 160.[address] Keron Maciel MD Work Phone: [facility] 12-09-2024 14:04-0400 Body mass index (BMI) [Ratio] 40.1 kg/m2 Dr. Keron Maciel MD Work Phone: [facility] 12-09-2024 14:04-0400 Body temperature 98.2 [degF] Dr. Keron Maciel MD Work Phone: [facility] 12-09-2024 14:04-0400 Body weight 102.[address] Keron Maciel MD Work Phone: [facility] 12-09-2024 14:04-0400 Diastolic blood pressure 72 mm[Hg] Dr. Keron Maciel MD Work Phone: [facility] 12-09-2024 14:04-0400 Heart rate 68 /min Dr. Keron Maciel MD Work Phone: [facility] 12-09-2024 14:04-0400 Respiratory rate 16 /min Dr. Keron Maciel MD Work Phone: [facility] 12-09-2024 14:04-0400 SaO2% (BldA) [Mass fraction] 93 % Dr. Keron Maciel MD Work Phone: [facility] 12-09-2024 14:04-0400 Systolic blood pressure 116 mm[Hg] Dr. Keron Maciel MD Work Phone: [facility] 11-25-2024 11:11-0400 Body height 160.[address] Keron Maciel MD Work Phone: [facility] 11-25-2024 11:11-0400 Body mass index (BMI) [Ratio] 40 kg/m2 Dr. Keron Maciel MD Work Phone: [facility] 11-25-2024 11:11-0400 Body temperature 98.6 [degF] Dr. Keron Maciel MD Work Phone: [facility] 11-25-2024 11:11-0400 Body weight 102.[address] Keron Maciel MD Work Phone: [facility] 11-25-2024 11:11-0400 Diastolic blood pressure 75 mm[Hg] Dr. Keron Maciel MD Work Phone: [facility] 11-25-2024 11:11-0400 Heart rate 77 /min Dr. Keron Maciel MD Work Phone: [facility] 11-25-2024 11:11-0400 Respiratory rate 16 /min Dr. Keron Maciel MD Work Phone: [facility] 11-25-2024 11:11-0400 SaO2% (BldA) [Mass fraction] 90 % Dr. Keron Maciel MD Work Phone: [facility] 11-25-2024 11:11-0400 Systolic blood pressure 146 mm[Hg] Dr. Keron Maciel MD Work Phone: [facility] 11-20-2024 00:56-0400 Body temperature 97.6 [degF] Dr. Keron Maciel MD Work Phone: [facility] 11-20-2024 00:56-0400 Diastolic blood pressure 7 mm[Hg] Dr. Keron Maciel MD Work Phone: [facility] 11-20-2024 00:56-0400 Heart rate 66 /min Dr. Keron Maciel MD Work Phone: [facility] 11-20-2024 00:56-0400 Respiratory rate 20 /min Dr. Keron Maciel MD Work Phone: [facility] 11-20-2024 00:56-0400 SaO2% (BldA) [Mass fraction] 91 % Dr. Keron Maciel MD Work Phone: [facility] 11-20-2024 00:56-0400 Systolic blood pressure 149 mm[Hg] Dr. Keron Maciel MD Work Phone: [facility] 11-19-2024 22:51-0400 Body mass index (BMI) [Ratio] 39.2 kg/m2 Dr. Keron Maciel MD Work Phone: [facility] 11-19-2024 22:51-0400 Body weight 100.[address] Keron Maciel MD Work Phone: [facility] 11-19-2024 22:48-0400 Body height 160.[address] Keron Maciel MD Work Phone: [facility] 08-01-2024 14:42-0500 Diastolic blood pressure 60 mm[Hg] Dr. Keron Maciel MD Work Phone: [facility] 08-01-2024 14:42-0500 Systolic blood pressure 106 mm[Hg] Dr. Keron Maciel MD Work Phone: [facility] 08-01-2024 13:55-0500 Body mass index (BMI) [Ratio] 39.3 kg/m2 Dr. Keron Maciel MD Work Phone: [facility] 08-01-2024 13:55-0500 Body temperature 97.5 [degF] Dr. Keron Maciel MD Work Phone: [facility] 08-01-2024 13:55-0500 Body weight 100.[address] Keron Maciel MD Work Phone: [facility] 08-01-2024 13:55-0500 Heart rate 89 /min Dr. Keron Maciel MD Work Phone: [facility] 08-01-2024 13:55-0500 Respiratory rate 17 /min Dr. Keron Maciel MD Work Phone: [facility] 08-01-2024 13:55-0500 SaO2% (BldA) [Mass fraction] 97 % Dr. Keron Maciel MD Work Phone: [facility] 07-25-2024 14:40-0500 Body mass index (BMI) [Ratio] 39.7 kg/m2 Dr. Keron Maciel MD Work Phone: [facility] 07-25-2024 14:40-0500 Body temperature 98.2 [degF] Dr. Keron Maciel MD Work Phone: [facility] 07-25-2024 14:40-0500 Body weight 101.[address] Keron Maciel MD Work Phone: [facility] 07-25-2024 14:40-0500 Diastolic blood pressure 83 mm[Hg] Dr. Keron Maciel MD Work Phone: [facility] 07-25-2024 14:40-0500 Heart rate 68 /min Dr. Keron Maciel MD Work Phone: [facility] 07-25-2024 14:40-0500 Respiratory rate 16 /min Dr. Keron Maciel MD Work Phone: [facility] 07-25-2024 14:40-0500 SaO2% (BldA) [Mass fraction] 96 % Dr. Keron Maciel MD Work Phone: [facility] 07-25-2024 14:40-0500 Systolic blood pressure 130 mm[Hg] Dr. Keron Maciel MD Work Phone: [facility] 09-14-2023 15:11-0400 Body height 162.[address] Keron Maciel Work Phone: [facility] 09-14-2023 15:11-0400 Body mass index (BMI) [Ratio] 38.7 kg/m2 Dr. Keron Maciel Work Phone: [facility] 09-14-2023 15:11-0400 Body temperature 97.3 [degF] Dr. Keron Maciel Work Phone: [facility] 09-14-2023 15:11-0400 Body weight 102.[address] Keron Maciel Work Phone: [facility] 09-14-2023 15:11-0400 Diastolic blood pressure 91 mm[Hg] Dr. Keron Maciel Work Phone: [facility] 09-14-2023 15:11-0400 Heart rate 87 /min Dr. Keron Maciel Work Phone: [facility] 09-14-2023 15:11-0400 Respiratory rate 17 /min Dr. Keron Maciel Work Phone: [facility] 09-14-2023 15:11-0400 SaO2% (BldA) [Mass fraction] 97 % Dr. Keron Maciel Work Phone: [facility] 09-14-2023 15:11-0400 Systolic blood pressure 167 mm[Hg] Dr. Keron Maciel Work Phone: [facility] 08-10-2023 15:48-0500 Body mass index (BMI) [Ratio] 39.4 kg/m2 Dr. Keron Maciel Work Phone: [facility] 02-22-2024 15:48-0500 Body temperature 97.7 [degF] Dr. Keron Maciel Work Phone: [facility] 08-10-2023 15:48-0500 Body weight 104.[address] Keron Maciel Work Phone: [facility] 08-10-2023 15:48-0500 Diastolic blood pressure 84 mm[Hg] Dr. Keron Maciel Work Phone: [facility] 08-10-2023 15:48-0500 Heart rate 78 /min Dr. Keron Maciel Work Phone: [facility] 08-10-2023 15:48-0500 Respiratory rate 14 /min Dr. Keron Maciel Work Phone: [facility] 08-10-2023 15:48-0500 SaO2% (BldA) [Mass fraction] 94 % Dr. Keron Maciel Work Phone: [facility] 08-10-2023 15:48-0500 Systolic blood pressure 128 mm[Hg] Dr. Keron Maciel Work Phone: [facility] 07-27-2023 14:30-0500 Body temperature 97.7 [degF] Dr. Keron Maciel Work Phone: [facility] 07-27-2023 14:30-0500 Body weight 104.[address] Keron Maciel Work Phone: [facility] 07-27-2023 14:30-0500 Diastolic blood pressure 67 mm[Hg] Dr. Keron Maciel Work Phone: [facility] 07-27-2023 14:30-0500 Heart rate 90 /min Dr. Keron Maciel Work Phone: [facility] 07-27-2023 14:30-0500 Respiratory rate 17 /min Dr. Keron Maciel Work Phone: [facility] 07-27-2023 14:30-0500 SaO2% (BldA) [Mass fraction] 97 % Dr. Keron Maciel Work Phone: [facility] 07-27-2023 14:30-0500 Systolic blood pressure 122 mm[Hg] Dr. Keron Maciel Work Phone: [facility] 07-24-2023 14:04-0500 Body mass index (BMI) [Ratio] 39.4 kg/m2 Dr. Keron Maciel Work Phone: [facility] 07-24-2023 14:04-0500 Body temperature 98.7 [degF] Dr. Keron Maciel Work Phone: [facility] 07-24-2023 14:04-0500 Body weight 104.[address] Keron Maciel Work Phone: [facility] 07-24-2023 14:04-0500 Diastolic blood pressure 90 mm[Hg] Dr. Keron Maciel Work Phone: [facility] 07-24-2023 14:04-0500 Heart rate 80 /min Dr. Keron Maciel Work Phone: [facility] 07-24-2023 14:04-0500 Respiratory rate 19 /min Dr. Keron Maciel Work Phone: [facility] 07-24-2023 14:04-0500 SaO2% (BldA) [Mass fraction] 96 % Dr. Keron Maciel Work Phone: [facility] 07-24-2023 14:04-0500 Systolic blood pressure 136 mm[Hg] Dr. Keron Maciel Work Phone: [facility] 07-16-2023 19:32-0500 Body temperature 98.1 [degF] Dr. Keron Maciel Work Phone: [facility] 07-16-2023 19:32-0500 Diastolic blood pressure 84 mm[Hg] Dr. Keron Maciel Work Phone: [facility] 07-16-2023 19:32-0500 Heart rate 82 /min Dr. Keron Maciel Work Phone: [facility] 07-16-2023 19:32-0500 Respiratory rate 16 /min Dr. Keron Maciel Work Phone: [facility] 07-16-2023 19:32-0500 SaO2% (BldA) [Mass fraction] 95 % Dr. Keron Maciel Work Phone: [facility] 07-16-2023 19:32-0500 Systolic blood pressure 146 mm[Hg] Dr. Keron Maciel Work Phone: [facility] 07-16-2023 14:57-0500 Body mass index (BMI) [Ratio] 40.2 kg/m2 Dr. Keron Maciel Work Phone: [facility] 07-16-2023 14:57-0500 Body weight 106.[address] Keron Maciel Work Phone: [facility] 10-18-2022 13:46-0400 Body height 162.[address] Keron Maciel Work Phone: [facility] 10-18-2022 13:46-0400 Body mass index (BMI) [Ratio] 40.5 kg/m2 Dr. Keron Maciel Work Phone: [facility] 10-18-2022 13:46-0400 Body temperature 93 [degF] Dr. Keron Maciel Work Phone: [facility] 10-18-2022 13:46-0400 Body weight 107.[address] Keron Maciel Work Phone: [facility] 10-18-2022 13:46-0400 Diastolic blood pressure 84 mm[Hg] Dr. Keron Maciel Work Phone: [facility] 10-18-2022 13:46-0400 Heart rate 84 /min Dr. Keron Maciel Work Phone: [facility] 10-18-2022 13:46-0400 Respiratory rate 18 /min Dr. Keron Maciel Work Phone: [facility] 10-18-2022 13:46-0400 SaO2% (BldA) [Mass fraction] 94 % Dr. Keron Maciel Work Phone: [facility] 10-18-2022 13:46-0400 Systolic blood pressure 146 mm[Hg] Dr. Keron Maciel Work Phone: [facility] 10-10-2022 20:09-0400 Diastolic blood pressure 70 mm[Hg] Dr. Keron Maciel Work Phone: [facility] 10-10-2022 20:09-0400 Heart rate 86 /min Dr. Keron Maciel Work Phone: [facility] 10-10-2022 20:09-0400 Systolic blood pressure 115 mm[Hg] Dr. Keron Maciel Work Phone: [facility] 10-10-2022 13:01-0400 Body mass index (BMI) [Ratio] 41 kg/m2 Dr. Keron Maciel Work Phone: [facility] 10-10-2022 13:01-0400 Body temperature 98 [degF] Dr. Keron Maciel Work Phone: [facility] 10-10-2022 13:01-0400 Body weight 108.[address] Keron Maciel Work Phone: [facility] 10-10-2022 13:01-0400 Respiratory rate 17 /min Dr. Keron Maciel Work Phone: [facility] 10-10-2022 13:01-0400 SaO2% (BldA) [Mass fraction] 98 % Dr. Keron Maciel Work Phone: [facility] 09-28-2022 14:32-0400 Body temperature 98.8 [degF] Dr. Keron Maciel Work Phone: [facility] 09-28-2022 14:32-0400 Body weight 109.[address] Keron Maciel Work Phone: [facility] 09-28-2022 14:32-0400 Diastolic blood pressure 80 mm[Hg] Dr. Keron Maciel Work Phone: [facility] 09-28-2022 14:32-0400 Heart rate 76 /min Dr. Keron Maciel Work Phone: [facility] 09-28-2022 14:32-0400 Respiratory rate 20 /min Dr. Keron Maciel Work Phone: [facility] 09-28-2022 14:32-0400 SaO2% (BldA) [Mass fraction] 95 % Dr. Keron Maciel Work Phone: [facility] 09-28-2022 14:32-0400 Systolic blood pressure 142 mm[Hg] Dr. Keron Maciel Work Phone: [facility] 09-08-2022 14:03-0400 Body height 162.[address] Keron Maciel Work Phone: [facility] 09-08-2022 14:02-0400 Body mass index (BMI) [Ratio] 41.3 kg/m2 Dr. Keron Maciel Work Phone: [facility] 09-08-2022 14:02-0400 Body weight 109.[address] Keron Maciel Work Phone: [facility] 09-08-2022 14:02-0400 Diastolic blood pressure 71 mm[Hg] Dr. Keron Maciel Work Phone: [facility] 09-08-2022 14:02-0400 Heart rate 76 /min Dr. Keron Maciel Work Phone: [facility] 09-08-2022 14:02-0400 Respiratory rate 22 /min Dr. Keron Maciel Work Phone: [facility] 09-08-2022 14:02-0400 SaO2% (BldA) [Mass fraction] 97 % Dr. Keron Maciel Work Phone: [facility] 09-08-2022 14:02-0400 Systolic blood pressure 118 mm[Hg] Dr. Keron Maciel Work Phone: [facility] 08-03-2022 07:45-0500 Body mass index (BMI) [Ratio] 40.6 kg/m2 Dr. Keron Maciel Work Phone: [facility] 08-03-2022 07:45-0500 Body temperature 97 [degF] Dr. Keron Maciel Work Phone: [facility] 08-03-2022 07:45-0500 Body weight 107.[address] Keron Maciel Work Phone: [facility] 08-03-2022 07:45-0500 Diastolic blood pressure 83 mm[Hg] Dr. Keron Maciel Work Phone: [facility] 08-03-2022 07:45-0500 Heart rate 86 /min Dr. Keron Maciel Work Phone: [facility] 08-03-2022 07:45-0500 Respiratory rate 20 /min Dr. Keron Maciel Work Phone: [facility] 08-03-2022 07:45-0500 SaO2% (BldA) [Mass fraction] 94 % Dr. Keron Maciel Work Phone: [facility] 08-03-2022 07:45-0500 Systolic blood pressure 154 mm[Hg] Dr. Keron Maciel Work Phone: [facility] 02-25-2022 09:02-0400 Body height 162.[address] Keron Maciel Work Phone: [facility] Work Phone: 02-25-2022 09:02-0400 Body mass index (BMI) [Ratio] 41 kg/m2 Dr. Keron Maciel Work Phone: [facility] Work Phone: 02-25-2022 09:02-0400 Body weight 108.[address] Keron Mcaiel Work Phone: [facility] Work Phone: 02-25-2022 09:02-0400 Diastolic blood pressure 79 mm[Hg] Dr. Keron Maciel Work Phone: [facility] Work Phone: 02-25-2022 09:02-0400 Heart rate 78 /min Dr. Keron Maciel Work Phone: [facility] Work Phone: 02-25-2022 09:02-0400 Respiratory rate 18 /min Dr. Keron Maciel Work Phone: [facility] Work Phone: 02-25-2022 09:02-0400 SaO2% (BldA) [Mass fraction] 98 % Dr. Keron Maciel Work Phone: [facility] Work Phone: 02-25-2022 09:02-0400 Systolic blood pressure 137 mm[Hg] Dr. Keron Maciel Work Phone: [facility] Work Phone: 02-14-2022 13:10-0400 Body height 162.[address] Keron Maciel Work Phone: [facility] Work Phone: 02-14-2022 13:10-0400 Body mass index (BMI) [Ratio] 41.1 kg/m2 Dr. Keron Maciel Work Phone: [facility] Work Phone: 02-14-2022 13:10-0400 Body temperature 98.2 [degF] Dr. Keron Maciel Work Phone: [facility] Work Phone: 02-14-2022 13:10-0400 Body weight 108.[address] Keron Maciel Work Phone: [facility] Work Phone: 02-14-2022 13:10-0400 Diastolic blood pressure 76 mm[Hg] Dr. Keron Maciel Work Phone: [facility] Work Phone: 02-14-2022 13:10-0400 Heart rate 75 /min Dr. Keron Maciel Work Phone: [facility] Work Phone: 02-14-2022 13:10-0400 Respiratory rate 22 /min Dr. Keron Maciel Work Phone: [facility] Work Phone: 02-14-2022 13:10-0400 SaO2% (BldA) [Mass fraction] 98 % Dr. eKron Maciel Work Phone: [facility] Work Phone: 02-14-2022 13:10-0400 Systolic blood pressure 126 mm[Hg] Dr. Keron Maciel Work Phone: [facility] Work Phone: 02-08-2022 13:22-0400 Body temperature 98.2 [degF] Dr. Keron Maciel Work Phone: [facility] Work Phone: 02-08-2022 13:22-0400 Diastolic blood pressure 54 mm[Hg] Dr. Keron Maciel Work Phone: [facility] Work Phone: 02-08-2022 13:22-0400 Heart rate 86 /min Dr. Keron Maciel Work Phone: [facility] Work Phone: 02-08-2022 13:22-0400 Respiratory rate 14 /min Dr. Keron Maciel Work Phone: [facility] Work Phone: 02-08-2022 13:22-0400 SaO2% (BldA) [Mass fraction] 95 % Dr. Keron Maciel Work Phone: [facility] Work Phone: 02-08-2022 13:22-0400 Systolic blood pressure 108 mm[Hg] Dr. Keron Maciel Work Phone: [facility] Work Phone: 02-01-2022 16:28-0400 Diastolic blood pressure 78 mm[Hg] Dr. Keron Maciel Work Phone: [facility] Work Phone: 02-01-2022 16:28-0400 Heart rate 78 /min Dr. Keron Maciel Work Phone: [facility] Work Phone: 02-01-2022 16:28-0400 Respiratory rate 16 /min Dr. Keron Maciel Work Phone: [facility] Work Phone: 02-01-2022 16:28-0400 SaO2% (BldA) [Mass fraction] 98 % Dr. Keron Maciel Work Phone: [facility] Work Phone: 02-01-2022 16:28-0400 Systolic blood pressure 136 mm[Hg] Dr. Keron Maciel Work Phone: [facility] Work Phone: 02-01-2022 13:24-0400 Body height 162.[address] Keron Maciel Work Phone: [facility] Work Phone: 02-01-2022 13:24-0400 Body mass index (BMI) [Ratio] 40.8 kg/m2 Dr. Keron Maciel Work Phone: [facility] Work Phone: 02-01-2022 13:24-0400 Body temperature 97.8 [degF] Dr. Keron Maciel Work Phone: [facility] Work Phone: 02-01-2022 13:24-0400 Body weight 107.[address] Keron Maciel Work Phone: [facility] Work Phone: 10-29-2021 07:13-0400 Body height 162.[address] Keron Maciel Work Phone: [facility] Work Phone: 10-29-2021 07:13-0400 Body weight 108.[address] Keron Maciel Work Phone: [facility] Work Phone: 10-28-2021 08:17-0400 Body mass index (BMI) [Ratio] 41.1 kg/m2 Dr. Keron Maciel Work Phone: [facility] Work Phone: 10-26-2021 08:19-0400 Body weight 108.[address] Keron Maciel Work Phone: [facility] Work Phone: 10-26-2021 08:19-0400 Diastolic blood pressure 72 mm[Hg] Dr. Keron Maciel Work Phone: [facility] Work Phone: 10-26-2021 08:19-0400 Heart rate 77 /min Dr. Keron Maciel Work Phone: [facility] Work Phone: 10-26-2021 08:19-0400 Respiratory rate 22 /min Dr. Keron Maciel Work Phone: [facility] Work Phone: 10-26-2021 08:19-0400 SaO2% (BldA) [Mass fraction] 96 % Dr. Keron Maciel Work Phone: [facility] Work Phone: 10-26-2021 08:19-0400 Systolic blood pressure 108 mm[Hg] Dr. Keron Maciel Work Phone: [facility] Work Phone: 10-26-2021 08:19-0400 Body weight 108.[address] Keron Maciel Work Phone: [facility] Work Phone: 10-26-2021 08:19-0400 Diastolic blood pressure 72 mm[Hg] Dr. Keron Maciel Work Phone: [facility] Work Phone: 10-26-2021 08:19-0400 Heart rate 77 /min Dr. Keron Maciel Work Phone: [facility] Work Phone: 10-26-2021 08:19-0400 Respiratory rate 22 /min Dr. Keron Maciel Work Phone: [facility] Work Phone: 10-26-2021 08:19-0400 SaO2% (BldA) [Mass fraction] 96 % Dr. Keron Maciel Work Phone: [facility] Work Phone: 10-26-2021 08:19-0400 Systolic blood pressure 108 mm[Hg] Dr. Keron Maciel Work Phone: [facility] Work Phone: 10-13-2021 13:03-0400 Body mass index (BMI) [Ratio] 40.8 kg/m2 Dr. Keron Maciel Work Phone: [facility] Work Phone: 10-13-2021 13:03-0400 Body temperature 96.9 [degF] Dr. Keron Maciel Work Phone: [facility] Work Phone: 10-13-2021 13:03-0400 Body weight 108.[address] Keron Maciel Work Phone: [facility] Work Phone: 10-13-2021 13:03-0400 Diastolic blood pressure 70 mm[Hg] Dr. Keron Maciel Work Phone: [facility] Work Phone: 10-13-2021 13:03-0400 Heart rate 95 /min Dr. Keron Maciel Work Phone: [facility] Work Phone: 10-13-2021 13:03-0400 Respiratory rate 16 /min Dr. Keron Maciel Work Phone: [facility] Work Phone: 10-13-2021 13:03-0400 SaO2% (BldA) [Mass fraction] 95 % Dr. Keron Maciel Work Phone: [facility] Work Phone: 10-13-2021 13:03-0400 Systolic blood pressure 130 mm[Hg] Dr. Keron Maciel Work Phone: [facility] Work Phone: 10-13-2021 13:03-0400 Body height 162.[address] Keron Maciel Work Phone: [facility] Work Phone: 10-13-2021 13:03-0400 Body mass index (BMI) [Ratio] 40.8 kg/m2 Dr. Keron Maciel Work Phone: [facility] Work Phone: 10-13-2021 13:03-0400 Body temperature 96.9 [degF] Dr. Keron Maciel Work Phone: [facility] Work Phone: 10-13-2021 13:03-0400 Body weight 108.[address] Keron Maciel Work Phone: [facility] Work Phone: 10-13-2021 13:03-0400 Diastolic blood pressure 70 mm[Hg] Dr. Keron Maciel Work Phone: [facility] Work Phone: 10-13-2021 13:03-0400 Heart rate 95 /min Dr. Keron Maciel Work Phone: [facility] Work Phone: 10-13-2021 13:03-0400 Respiratory rate 16 /min Dr. Keron Maciel Work Phone: [facility] Work Phone: 10-13-2021 13:03-0400 SaO2% (BldA) [Mass fraction] 95 % Dr. Keron Maciel Work Phone: [facility] Work Phone: 10-13-2021 13:03-0400 Systolic blood pressure 130 mm[Hg] Dr. Keron Maciel Work Phone: [facility] Work Phone: 10-11-2021 13:12-0400 Body mass index (BMI) [Ratio] 40.8 kg/m2 Dr. Keron Maciel Work Phone: [facility] Work Phone: 10-11-2021 13:12-0400 Body weight 108.[address] Keron Maciel Work Phone: [facility] Work Phone: 10-11-2021 13:12-0400 Diastolic blood pressure 68 mm[Hg] Dr. Keron Maciel Work Phone: [facility] Work Phone: 10-11-2021 13:12-0400 Heart rate 80 /min Dr. Keron Maciel Work Phone: [facility] Work Phone: 10-11-2021 13:12-0400 Respiratory rate 17 /min Dr. Keron Maciel Work Phone: [facility] Work Phone: 10-11-2021 13:12-0400 SaO2% (BldA) [Mass fraction] 96 % Dr. Keron Maciel Work Phone: [facility] Work Phone: 10-11-2021 13:12-0400 Systolic blood pressure 114 mm[Hg] Dr. Keron Maciel Work Phone: [facility] Work Phone: 10-11-2021 13:12-0400 Body mass index (BMI) [Ratio] 40.8 kg/m2 Dr. Keron Maciel Work Phone: [facility] Work Phone: 10-11-2021 13:12-0400 Body weight 108.[address] Keron Maciel Work Phone: [facility] Work Phone: 10-11-2021 13:12-0400 Diastolic blood pressure 68 mm[Hg] Dr. Keron Maciel Work Phone: [facility] Work Phone: 10-11-2021 13:12-0400 Heart rate 80 /min Dr. Keron Maciel Work Phone: [facility] Work Phone: 10-11-2021 13:12-0400 Respiratory rate 17 /min Dr. Keron Maciel Work Phone: [facility] Work Phone: 10-11-2021 13:12-0400 SaO2% (BldA) [Mass fraction] 96 % Dr. Keron Maciel Work Phone: [facility] Work Phone: 10-11-2021 13:12-0400 Systolic blood pressure 114 mm[Hg] Dr. Keron Maciel Work Phone: [facility] Work Phone: 09-07-2021 13:29-0400 Body mass index (BMI) [Ratio] 40.6 kg/m2 Dr. Keron Maciel Work Phone: [facility] Work Phone: 09-07-2021 13:29-0400 Body temperature 96.3 [degF] Dr. Keron Maciel Work Phone: [facility] Work Phone: 09-07-2021 13:29-0400 Body weight 107.[address] Keron Maciel Work Phone: [facility] Work Phone: 09-07-2021 13:29-0400 Diastolic blood pressure 80 mm[Hg] Dr. Keron Maciel Work Phone: [facility] Work Phone: 09-07-2021 13:29-0400 Heart rate 87 /min Dr. Keron Maciel Work Phone: [facility] Work Phone: 09-07-2021 13:29-0400 Respiratory rate 20 /min Dr. Keron Maciel Work Phone: [facility] Work Phone: 09-07-2021 13:29-0400 SaO2% (BldA) [Mass fraction] 97 % Dr. Keron Maciel Work Phone: [facility] Work Phone: 09-07-2021 13:29-0400 Systolic blood pressure 140 mm[Hg] Dr. Keron Maciel Work Phone: [facility] Work Phone: 08-05-2021 05:23-0500 Body temperature 97.2 [degF] Dr. Keron Maciel Work Phone: [facility] Work Phone: 08-05-2021 05:23-0500 Body weight 106.[address] Keron Maciel Work Phone: [facility] Work Phone: 08-05-2021 05:23-0500 Diastolic blood pressure 81 mm[Hg] Dr. Keron Maciel Work Phone: [facility] Work Phone: 08-05-2021 05:23-0500 Heart rate 86 /min Dr. Keron Maciel Work Phone: [facility] Work Phone: 08-05-2021 05:23-0500 Respiratory rate 18 /min Dr. Keron Maceil Work Phone: [facility] Work Phone: 08-05-2021 05:23-0500 SaO2% (BldA) [Mass fraction] 97 % Dr. Keron Maciel Work Phone: [facility] Work Phone: 08-05-2021 05:23-0500 Systolic blood pressure 145 mm[Hg] Dr. Keron Maciel Work Phone: [facility] Work Phone: 07-13-2021 09:20-0500 Diastolic blood pressure 68 mm[Hg] Dr. Keron Maciel Work Phone: [facility] Work Phone: 07-13-2021 09:20-0500 Heart rate 87 /min Dr. Keron Maciel Work Phone: [facility] Work Phone: 07-13-2021 09:20-0500 SaO2% (BldA) [Mass fraction] 98 % Dr. Keron Maciel Work Phone: [facility] Work Phone: 07-13-2021 09:20-0500 Systolic blood pressure 120 mm[Hg] Dr. Keron Maciel Work Phone: [facility] Work Phone: 01-18-2021 13:35-0400 Body mass index (BMI) [Ratio] 40.6 kg/m2 Dr. Keron Maciel Work Phone: [facility] Work Phone: 01-18-2021 13:35-0400 Body mass index (BMI) [Ratio] 40.6 kg/m2 Dr. Keron Maciel Work Phone: [facility] Work Phone: 07-22-2020 09:45-0500 Body mass index (BMI) [Ratio] 40.8 kg/m2 Dr. Keron Maciel Work Phone: [facility] Work Phone: 05-09-2017 08:43-0500 BMI (Body Mass Index) 41.78 kg/m2 Saurabh Benites MD [facility] [employer] Work Phone: 05-09-2017 08:43-0500 Body Temperature 97.8 [degF] Saurabh Benites MD [facility] Work Phone: 05-09-2017 08:43-0500 BP Diastolic 83 mm[Hg] Saurabh Benites MD [facility] Work Phone: 05-09-2017 08:43-0500 BP Systolic 148 mm[Hg] Saurabh Benites MD [facility] Work Phone: 05-09-2017 08:43-0500 Height 160.02 cm Saurabh Benites MD [facility] Work Phone: 05-09-2017 08:43-0500 Pulse (Heart Rate) 74 /min Saurabh Benites MD [facility] Work Phone: 05-09-2017 08:43-0500 Respiratory Rate 20 /min Saurabh Benites MD [facility] Work Phone: 05-09-2017 08:43-0500 Weight 107 kg Saurabh Benites MD [facility] Work Phone: 05-31-2016 10:22-0500 Body Temperature 97.34 [degF] Saurabh Benites MD [facility] Work Phone: 05-31-2016 10:22-0500 BSA (Body Surface Area) 2.06 m2 Saurabh Benites MD [facility] Work Phone: 05-31-2016 10:22-0500 Height 160.02 cm Saurabh Benites MD [facility] Work Phone: 05-31-2016 10:22-0500 Weight 105.45 kg Saurabh Benites MD [facility] Work Phone: 03-08-2016 14:31-0400 Pulse Oximetry 97 % Saurabh Benites MD [facility] Work Phone: Encounters Encounter Date Encounter Type Care Provider Facility Start: 01-07-[address] Beatrice Maciel MD Work Phone: -Medical Surgical 3 Start: 01-07-2025 Dr. Junior Valverde MD -[facility] Work Phone: Start: 01-06-2025 End: 01-06-2025 ambulatory Keron Maciel Facility:[facility] Start: 01-06-2025 End: 01-06-2025 Dr. Keron Maciel MD -[facility] Work Phone: Start: 01-02-2025 Dr. Patti Steinberg MD -[facility] Start: 01-02-2025 ambulatory Patti Steinberg Facility:[facility] Start: 12-31-2024 End: 12-31-2024 Dr. Keron Maciel MD Work Phone: -Emergency Department Work Phone: Start: 12-31-2024 End: 12-31-2024 Emergency department patient visit Dr. Keron Maciel MD Work Phone: -Emergency Department Start: 12-30-2024 End: 12-30-2024 Dr. Keron Maciel MD -[facility] Work Phone: Start: 12-30-2024 End: 12-30-[address] Keron Maciel MD Work Phone: -[facility] Start: 12-23-2024 End: 12-23-2024 Patient encounter procedure Zhen Simons [facility]-C -[facility] Work Phone: Start: 12-23-2024 End: 12-23-2024 Zhen Simons HEALTH COMMISSIONER-C -[facility] Work Phone: Start: 12-23-2024 End: 12-23-[address] Keron Maciel MD Work Phone: -[facility] Start: 12-21-2024 End: 12-21-2024 Dr. Derick Sorenson DO -Emergency [facility] Work Phone: Start: 12-21-2024 End: 12-21-2024 Emergency [...] Start: 12-13-2024 End: 12-13-2024 ambulatory BARBIE NOVA Facility:[facility] Start: 12-09-2024 End: 12-09-[address] Keron Maciel MD Work Phone: -Radiology [facility] Start: 12-09-2024 End: 12-09-[address] Keron Maciel MD -Radiology [facility] Work Phone: Start: 12-09-2024 End: 12-09-2024 Dr. Keron Maciel MD -Radiology [facility] Work Phone: Start: 12-09-2024 End: 12-09-[address] Keron Maciel MD -[facility] Work Phone: Start: 12-09-2024 End: 12-09-2024 Dr. Keron Maciel MD -[facility] Work Phone: Start: 12-09-2024 End: 12-09-[address] Keron Maciel MD Work Phone: [facility] Work Phone: Start: 12-09-2024 End: 12-09-2024 ambulatory Keron Maciel Facility:[facility] Start: 11-25-2024 End: 11-25-[address] Keron Maciel MD Work Phone: [facility] Work Phone: Start: 11-25-2024 End: 11-25-[address] Keron Maciel MD -[facility] Work Phone: Start: 11-25-2024 End: 11-25-2024 Dr. Keron Maciel MD -[facility] Work Phone: Start: 11-25-2024 End: 11-25-[address] Keron Maciel MD -[facility] Work Phone: Start: 11-25-2024 End: 11-25-2024 Dr. Keron Maciel MD -[facility] Work Phone: Start: 11-25-2024 End: 11-25-[address] Keron Maciel MD Work Phone: [facility] Work Phone: Start: 11-25-2024 End: 11-25-2024 ambulatory Keron Maciel Facility:[facility] Start: 11-19-2024 End: 11-20-2024 Helioney Corrales -Emergency Departmen t Work Phone: Start: 11-19-2024 End: 11-20-2024 Emergency department patient visit Helio Corrales -Emergency Department Work Phone: Start: 09-06-2024 End: 09-06-2024 ambulatory BARBIE NOVA Facility:[facility] Start: 09-06-2024 End: 09-06-2024 Patient encounter procedure Barbie Nova Work Phone: Podiatry Comment on above: Onychomycosis (Prima ry Dx); Pain in toe of left foot; Pain in toe of right foot; Diabetic polyneuropathy associated with type 2 diabetes mellitus (HCC); Venous insufficiency Start: 08-01-2024 End: 08-01-[address] Rich Padgett MD -[facility] Work Phone: Start: 08-01-2024 End: 08-01-2024 ambulatory Keron Maciel Facility:[facility] Start: 07-25-2024 End: 07-25-[address] Keron Maciel MD -[facility] Work Phone: Start: 07-25-2024 End: 07-25-2024 ambulatory Keron Maciel Facility:[facility] Start: 06-24-2024 End: 06-24-2024 ambulatory Keron Maciel Facility:[facility] Start: 06-24-2024 End: 06-24-2024 ambulatory Joan Serna Facility:[facility] Start: 06-15-2024 ambulatory David Ashton Facility:[facility] Start: 06-15-2024 End: 06-16-2024 ambulatory Amalia Moncada Facility:[facility] Start: 06-06-2024 End: 06-06-2024 ambulatory BARBIE NOVA Facility:[facility] Start: 06-06-2024 End: 06-06-2024 Patient encounter procedure Barbie Nova Work Phone: Podiatry Comment on above: Onychomycosis (Prima ry Dx); Pain in toe of left foot; Pain in toe of right foot; Diabetic polyneuropathy associated with type 2 diabetes mellitus ([facility]) Start: 05-20-2024 End: 05-20-2024 ambulatory [facility] Facility:[facility] Start: 05-09-2024 End: 05-09-2024 ambulatory [facility] Facility:[facility] Start: 04-22-2024 End: 04-22-2024 ambulatory [facility] Start: 03-28-2024 End: 03-28-2024 ambulatory [facility] Start: 03-27-2024 End: 03-27-2024 ambulatory [facility] Start: 03-14-2024 End: 03-14-2024 ambulatory [facility] Start: 03-07-2024 End: 03-07-2024 ambulatory [facility] Start: 02-29-2024 End: 02-29-2024 ambulatory BARBIE NOVA Facility:[facility] Start: 02-29-2024 End: 02-29-2024 Patient encounter procedure Barbie Nova Work Phone: Podiatry Comment on above: Onychomycosis (Prima ry Dx); Pain in toe of left foot; Pain in toe of right foot; Diabetic polyneuropathy associated with type 2 diabetes mellitus ([facility]) Start: 02-26-2024 End: 02-26-2024 ambulatory [facility] Facility[facility] Start: 01-18-2024 End: 01-18-2024 ambulatory [facility] Start: 01-10-2024 End: 01-10-2024 ambulatory Geo Saeed Facility:[facility] Start: 11-16-2023 End: 11-16-2023 Patient encounter procedure Barbie Nova Work Phone: Podiatry Comment on above: Onychomycosis (Prima ry Dx); Pain in toe of left foot; Pain in toe of right foot; Diabetic polyneuropathy associated with type 2 diabetes mellitus (HCC) Start: 09-22-2023 End: 09-22-[address] Keron Maciel Work Phone: [facility] Work Phone: Start: 09-22-2023 End: 09-22-[address] Keron Maciel Work Phone: [facility]-Laboratory Work Phone: Start: 09-14-2023 End: 09-14-[address] Keron Maciel Work Phone: [facility] Work Phone: Start: 08-10-2023 End: 08-10-[address] Keron Maciel Work Phone: [facility] Work Phone: Start: 07-31-2023 End: 07-31-2023 Patient encounter procedure Barbie Nova Work Phone: Podiatry Comment on above: Onychomycosis (Prima ry Dx); Pain in toe of left foot; Pain in toe of right foot; Xerosis cutis; Diabetic polyneuropathy associated with diabetes mellitus due to underlying condition ([facility]); Callus of heel Start: 07-31-2023 End: 07-31-2023 Subsequent hospital visit by physician Xr [facility] Work Phone: Radiology Start: 07-27-2023 End: 07-27-[address] Keron Maciel Work Phone: [facility] Neurology Work Phone: Start: 07-24-2023 End: 07-24-[address] Keron Maciel Work Phone: [facility] Work Phone: Start: 07-16-2023 End: 07-16-2023 Emergency department patient visit Dr. Keron Maciel Work Phone: [facility]-Emergency Department Work Phone: Start: 12-09-2022 End: 12-09-[address] Keron Maciel Work Phone: [facility] Work Phone: Start: 12-09-2022 End: 12-09-[address] Keron Maciel Work Phone: [facility]-Physical Therapy Start: 10-18-2022 End: 10-18-[address] Keron Maciel Work Phone: [facility] Endocrinology Start: 10-10-2022 End: 10-10-[address] Keron Maciel Work Phone: [facility] Neurology Start: 10-05-2022 End: 10-05-[address] Keron Maciel Work Phone: [facility]-Radiology, [facility] Start: 09-28-2022 End: 09-28-[address] Keron Maciel Work Phone: [facility] Work Phone: Start: 09-28-2022 End: 09-28-[address] Keron Maciel Work Phone: [facility]-Laboratory Start: 09-28-2022 End: 09-28-[address] Keron Maciel Work Phone: [facility] Med [facility] Start: 09-08-2022 End: 09-08-[address] Keron Maciel Work Phone: [facility] Start: 09-07-2022 End: 09-07-[address] Keron Maciel Work Phone: [facility] Work Phone: Start: 09-07-2022 End: 09-07-[address] Keron Maciel Work Phone: [facility]-Radiology, [facility] Start: 08-03-2022 End: 08-03-[address] Keron Maciel Work Phone: [facility]-Pulmonary Medicine [facility] Start: 03-03-2022 End: 03-03-[address] Keron Maciel Work Phone: [facility] Work Phone: Start: 03-03-2022 End: 03-03-[address] Keron Maciel Work Phone: [facility]-Laboratory Start: 02-25-2022 End: 02-25-[address] Keron Maciel Work Phone: [facility] Start: 02-17-2022 Non-patient / Non-visit Dr. Madeleine Maciel Work Phone: [facility] Internal [facility] Start: 02-16-2022 End: 02-16-[address] Keron Maciel Work Phone: [facility] Work Phone: Start: 02-16-2022 End: 02-16-[address] [facility] Start: 02-14-2022 End: 02-14-[address] Keron Maciel Work Phone: [facility] Internal Medicine Start: 02-08-2022 End: 02-08-[address] Keron Maciel Work Phone: [facility] Internal Medicine Start: 02-01-2022 End: 02-01-2022 Emergency department patient visit Dr. Keron Maciel Work Phone: [facility]-Emergency Department Start: 10-29-2021 End: 10-29-2021 Admission to same day surgery center Dr. Keron Maciel Work Phone: [facility]-Collar Worker/Special Procedures Start: 10-26-2021 End: 10-26-[address] Keron Maciel Work Phone: [facility] Start: 10-13-2021 End: 10-13-[address] Keron Maciel Work Phone: [facility]-Laboratory, [facility] Start: 10-13-2021 End: 10-13-[address] Keron Maciel Work Phone: [facility] Internal Medicine Start: 10-11-2021 End: 10-11-[address] Keron Maciel Work Phone: [facility] Neurology Start: 09-07-2021 End: 09-07-[address] Keron Maciel Work Phone: [facility] Endocrinology Start: 08-05-2021 End: 08-05-[address] Keron Maciel Work Phone: [facility]-Pulmonary Medicine [facility] [facility] Start: 07-13-2021 End: 07-13-[address] Keron Maciel Work Phone: [facility] Start: 06-22-2021 End: 06-22-[address] Keron Maciel Work Phone: [facility] Procedures Date Procedure Procedure Detail Performing Clinician Start: 01-07-2025 Plain chest X-ray Dr. John Maciel MD Work Phone: Start: 01-07-2025 Blood count smear rscp w/mnl difrntl wbc count Dr. Keron Maciel MD Work Phone: Start: 01-07-2025 Calculation of international normalized ratio Dr. Keron Maciel MD Work Phone: Start: 01-07-[address] Keron Maciel MD Work Phone: Start: 01-07-2025 Mean corpuscular hem oglobin concentration determination Dr. Keron Maciel MD Work Phone: Start: 01-07-2025 Nucleated red blood cell count procedure Dr. Keron Maciel MD Work Phone: Start: 01-07-2025 Platelet mean volume determination Dr. Keron Maciel MD Work Phone: Start: 01-07-2025 Tri[address]ol lipa se measurement Dr. Keron Maciel MD Work Phone: Start: 01-07-2025 Urine microscopy: red cells Dr. Keron Maciel MD Work Phone: Start: 01-07-2025 Urnls dip stick/tabl et reagent auto microscopy Dr. Keron Maciel MD Work Phone: Start: 01-07-2025 CT cervical spine wi thout contrast Dr. Keron Maciel MD Work Phone: Start: 01-07-2025 CT of head without contrast Dr. Keron Maciel MD Work Phone: Start: 12-31-2024 CT of head without contrast [...] Work Phone: Start: 11-25-2024 Blood count smear rscp w/mnl difrntl wbc count Dr. Keron [...] Work Phone: Start: 11-19-2024 Blood count smear rscp w/mnl difrntl wbc count Dr. 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 Audelia Espinoza PA-C Work Phone: Start: 09-06-2016 End: 09-06-2016 Follow Up Appt 6 months Audelia Espinoza PA-C Work Phone: Start: 09-06-2016 End: 09-06-2016 Follow Up Appt Other Audelia Espinoza PA-C Work Phone: Start: 08-22-2016 End: 09-07-2016 DMB Lela Sherman [employer] Work Phone: Start: 08-22-2016 End: 09-07-2016 [facility]-mode compl spec&colr d Lela Sherman [employer] Work Phone: Start: 08-22-2016 End: 09-07-2016 Follow Up Appt 3 months Lela fonseca [employer] Work Phone: Start: 08-22-2016 End: 08-23-2016 Natriuretic peptide B [Mass/volume] in Blood Lela Sherman [employer] Work Phone: Start: 06-08-2016 End: 08-18-2016 *MISC - Miscellaneous Lab Test #1 Lela Sherman [employer] Work Phone: Start: 05-20-2016 End: 05-20-2016 Follow Up Appt 6 months Libia Liu Start: 05-20-2016 End: 05-20-2016 CAROLINE Ashton MD Start: 03-21-2016 End: 03-21-2016 *CBC [...] David Ashton MD Start: 10-15-2015 End: 10-15-2015 MMM David Ashton MD Start: 08-27-2015 End: 08-27-2015 Follow [...] PA-C Work Phone: Start: 07-16-2015 End: 07-16-2015 MMM Audelia Espinoza PA-C Work Phone: Start: 07-01-2015 History of placement of stent for coronary artery disease History of coronary artery stent placement Zhen Simons [employer] COMM[employer]IONER-C Comment on above: RUDDY to Prox-Mid LAD w/ 3.5 x 20 Promus Stent done 07/01/15 Start: 06-16-2015 End: 06-16-2015 Ecg routine ecg w/least 12 lds w/i&r David Ashton MD Start: 06-16-2015 End: 06-25-2015 Echocardiography David Ashton MD Start: 06-16-2015 End: 07-16-2015 Follow Up Appt 6 months Libia Liu Start: 06-16-2015 End: 07-16-2015 MMLibia Ashton MD Start: 06-16-2015 End: 06-17-2015 Natriuretic peptide B [Mass/volume] in Blood David Ashton MD Start: 12-04-2014 End: 12-04-2014 AUTOMATION QA ANALYST Audelia Espinoza PA-C Work Phone: Start: 12-04-2014 [...] CAROLINE Ashton MD Start: 12-31-2013 End: 12-31-2013 AUTOMATION QA ANALYST Audelia Espinoza PA-C Work Phone: Start: 12-31-2013 End: 12-31-2013 Follow Up Appt 6 months Audelia Espinoza PA-C Work Phone: Start: 06-25-2013 End: 06-25-2013 Ecg routine ecg w/least 12 lds w/i&r David Ashton MD Start: 06-25-2013 End: 06-25-2013 Follow Up Appt 6 months Libia Liu Start: 06-25-2013 End: 06-25-2013 CAROLINE Ashton MD Start: 05-19-2013 End: 06-21-2013 *Hepatic [...] DTaP,Tdap,Td Vaccine (4 - Td or Tdap) [facility] Start: 02-02-2032 Urine microalbumin profile DTaP,Tdap,Td Vaccine (3 - Td or Tdap) [facility] Start: 03-21-2025 End: 03-21-2025 Patient encounter procedure 03/21/2025 1:40 PM EDT Office Visit Podiatry [address] [place], [place] [id number] Barbie Nova [address] [place] [address] 3 month follow up nail care Podiatry Comment on above: 3 month follow up nail care Start: 02-17-2025 Influenza vaccination Influenza Vaccine (Season Ended) [facility] Start: 01-07-2025 Verification routine [facility] Start: 01-07-2025 Admission procedure [facility] Start: 01-07-2025 Hospital admission, emergency, from emergency room, medical nature [facility] Start: 01-07-2025 End: 01-07-2025 [facility] Start: 01-07-2025 [facility] Start: 12-31-2024 [facility] Start: 12-23-2024 Evaluation of diagnostic study results [facility] Start: 12-21-2024 [facility] Start: 12-21-2024 [facility] Start: 12-06-2024 End: 12-06-2024 Patient encounter procedure 12/06/2024 3:40 PM EDT Office Visit Podiatry [address] [place] [address] Barbie Nova [address] [place] [address] 3 mo f/u Podiatry Comment on above: 3 mo f/u Start: 11-25-2024 Basic metabolic 2008 panel with ionized calcium - Serum or Plasma [facility] Start: 11-25-2024 CBC W Auto Differential panel - Blood [facility] Start: 11-25-2024 Natriuretic peptide.B prohormone N-Terminal [Mass/volume] in Serum or Plasma [facility] Start: 11-25-2024 Evaluation of diagnostic study results [facility] Start: 11-20-2024 End: 11-20-2024 [facility] Start: 11-19-2024 Bacteria identified in Urine by Culture Urine Culture [facility] Start: 09-06-2024 End: 09-06-2024 Patient encounter procedure 09/06/2024 1:20 PM EDT Office Visit Podiatry [address] [place] [address] Barbie Nova [address] [address] 3 month follow up nail care Podiatry Comment on above: 3 month follow up nail care Start: 06-19-2024 Advance Directive Discussion Advance Directive Discussion [facility] Start: 06-19-2024 Medicare Advantage Annual Wellness Visit Medicare Advantage Annual Wellness Visit [facility] Start: 02-23-2024 End: 02-23-2024 Patient encounter procedure 02/23/2024 2:00 PM EDT Office Visit Podiatry [address] [place] [address] Barbie Nova [address] [place] [address] 3 month follow up nail care Podiatry Comment on above: 3 month follow up nail care Start: 02-18-2024 Covid-19 Vaccine ( season) Covid-19 Vaccine () [facility] Start: 02-18-2024 Covid-19 Vaccine () Covid-19 Vaccine () [facility] Start: 02-18-2024 Influenza vaccination [facility] Start: 07-16-2023 [facility] Start: 07-16-2023 [facility] Start: 06-19-2023 Advance Directive Discussion Advance Directive Discussion [facility] Start: 06-19-2023 Behavioral Health Screening Behavioral Health Screening [facility] Start: 06-19-2023 Depression Assessment Depression Assessment [facility] Start: 02-17-2023 Covid-19 Vaccine () Covid-19 Vaccine () [facility] Start: 02-17-2023 Influenza vaccination Influenza Vaccine (#1) [facility] Start: 10-10-2022 Patient referral [facility] Work Phone: Start: 02-01-2022 Simple repair f/e/e/n/l/m 2.6cm-5.0 cm RPR F/E/E/N/L/M 2.6-5.0 CM [facility] Work Phone: Start: 09-17-2021 Diabetic foot examination Diabetic Foot Exam [facility] Start: 09-14-2021 Hepatitis B surface antibody level LDL Cholesterol [facility] Start: 04-07-2021 Glaucoma screening Dilated Retinal Exam [facility] Start: 03-30-2021 Hemoglobin A1c measurement HbA1C [facility] Start: 01-19-2021 Hepatitis B screening Urine Albumin:Creatinine Ratio [facility] Start: 09-06-2017 End: 09-06-2017 Appointment Appointment [facility] Work Phone: Start: 05-22-2017 End: 05-22-2017 Appointment Appointment [facility] Work Phone: Start: 05-09-2017 End: 05-09-2017 Hepatobiliary imaging NM HIDA Scan with EF [facility] [employer] Work Phone: Start: 05-09-2017 End: 05-09-2017 Us abdominal real time w/image documentation US Abdomen, RUQ [facility] [employer] Work Phone: Start: 05-09-2017 End: 05-09-2017 Appointment Appointment [facility] [employer] Work Phone: Start: 03-09-2017 End: 03-09-2017 Follow Up Appt 6 months Follow Up Appt 6 months [facility] [employer] Work Phone: Start: 03-09-2017 End: 03-09-2017 MMM MMM [facility] [employer] Work Phone: Start: 01-20-2017 End: 01-20-2017 *BMP *BMP [facility] [employer] Work Phone: Start: 01-20-2017 End: 01-20-2017 *CBC with Differential *CBC with Differential [facility] [employer] Work Phone: Start: 01-20-2017 End: 01-20-2017 BNP *Brain Natriuretic Peptide BNP [facility] [employer] Work Phone: Start: 01-20-2017 End: 01-20-2017 Chest x-ray X-Ray, Chest, PA & Lateral [facility] [employer] Work Phone: Start: 01-20-2017 End: 01-20-2017 Follow Up Appt Other Follow Up Appt Other [facility] [employer] Work Phone: Start: 11-28-2016 End: 11-28-2016 DMB DMB [facility] [employer] Work Phone: Start: 11-28-2016 End: 11-28-2016 Follow Up Appt 1 year Follow Up Appt 1 year [facility] [employer] Work Phone: Start: 09-06-2016 End: 09-06-2016 AUTOMATION QA ANALYST AUTOMATION QA ANALYST [facility] [employer] Work Phone: Start: 09-06-2016 End: 09-06-2016 Follow Up Appt 6 months Follow Up Appt 6 months [facility] [employer] Work Phone: Start: 09-06-2016 End: 09-06-2016 Follow Up Appt Other Follow Up Appt Other [facility] [employer] Work Phone: Start: 08-22-2016 End: 08-23-2016 BNP *Brain Natriuretic Peptide BNP [facility] [employer] Work Phone: Start: 08-22-2016 End: 09-07-2016 DMB DMB [facility] [employer] Work Phone: Start: 08-22-2016 End: 09-07-2016 Echo tthrc r-t 2d w/wom-mode compl spec&colr d Echo Complete with Color Flow [facility] [employer] Work Phone: Start: 08-22-2016 End: 09-07-2016 Follow Up Appt 3 months Follow Up Appt 3 months [facility] [employer] Work Phone: Start: 06-08-2016 End: 08-18-2016 *MISC - Miscellaneous Lab Test #1 *MISC - Miscellaneous Lab Test #1 [facility] [employer] Work Phone: Start: 05-31-2016 End: 05-31-2016 DMB DMB [facility] [employer] Work Phone: Start: 05-31-2016 End: 05-31-2016 Follow Up Appt 4 months Follow Up Appt 4 months [facility] [employer] Work Phone: Start: 05-20-2016 End: 05-20-2016 Follow Up Appt 6 months Follow Up Appt 6 months [facility] [employer] Work Phone: Start: 05-20-2016 End: 05-20-2016 MMM MMM [facility] [employer] Work Phone: Start: 04-20-2016 End: 10-20-2015 *Hepatic Function Panel *Hepatic Function Panel [facility] [employer] Work Phone: Start: 04-20-2016 End: 10-20-2015 Lipid panel [AGGREGATE] *Lipid Profile CC PCP [facility] [employer] Work Phone: Start: 03-21-2016 End: 03-21-2016 *CBC with Differential *CBC with Differential [facility] [employer] Work Phone: Start: 03-21-2016 End: 04-29-2016 Assay of ferritin Ferritin [facility] [employer] Work Phone: Start: 03-21-2016 End: 03-21-2016 DMB DMB [facility] [employer] Work Phone: Start: 03-21-2016 End: 03-21-2016 Follow Up Appt 6 weeks Follow Up Appt 6 weeks [facility] [employer] Work Phone: Start: 03-21-2016 End: 03-21-2016 Iron and Iron binding capacity panel - Serum or Plasma *IBC Iron & Total Iron Binding Capacity [facility] [employer] Work Phone: Start: 03-21-2016 End: 03-21-2016 Reticulocytes/100 erythrocytes *Reticulocyte Count [facility] [employer] Work Phone: Start: 03-14-2016 End: 03-14-2016 Left Heart Cath Left Heart Cath [facility] [employer] Work Phone: Start: 03-09-2016 End: 03-09-2016 CBC W Auto Differential panel - Blood *CBC without Diff [facility] [employer] Work Phone: Start: 03-08-2016 End: 03-09-2016 *BMP *BMP [facility] [employer] Work Phone: Start: 03-08-2016 End: 03-09-2016 BNP *Brain Natriuretic Peptide BNP [facility] [employer] Work Phone: Start: 03-08-2016 End: 03-09-2016 Ct angiography chest w/contrast/noncontrast CTA Chest, with contrast material(s) [facility] [employer] Work Phone: Start: 03-08-2016 End: 03-08-2016 Ecg routine ecg w/least 12 lds w/i&r EKG (In office) [facility] [employer] Work Phone: Start: 03-08-2016 End: 03-08-2016 Follow Up Appt 6 weeks Follow Up Appt 6 weeks [facility] [employer] Work Phone: Start: 03-08-2016 End: 03-08-2016 MMM MMM [facility] [employer] Work Phone: Start: 02-08-2016 End: 04-29-2016 DMB DMB [facility] [employer] Work Phone: Start: 02-08-2016 End: 04-29-2016 Follow Up Appt 6 weeks Follow Up Appt 6 weeks [facility] [employer] Work Phone: Start: 02-08-2016 End: 03-18-2016 Pulmonary Function Test - complete Pulmonary Function Test - complete [facility] [employer] Work Phone: Start: 10-15-2015 End: 10-19-2015 *Hepatic Function Panel *Hepatic Function Panel [facility] [employer] Work Phone: Start: 10-15-2015 End: 10-15-2015 Follow Up Appt 6 months Follow Up Appt 6 months [facility] [employer] Work Phone: Start: 10-15-2015 End: 10-19-2015 Lipid panel [AGGREGATE] *Lipid Profile CC PCP [facility] [employer] Work Phone: Start: 10-15-2015 End: 10-15-2015 MMM MMM [facility] [employer] Work Phone: Start: 08-27-2015 End: 08-27-2015 Follow Up Appt 6 weeks Follow Up Appt 6 weeks [facility] [employer] Work Phone: Start: 08-27-2015 End: 08-27-2015 MMM MMM [facility] [employer] Work Phone: Start: 08-06-2015 End: 08-06-2015 *BMP *BMP [facility] [employer] Work Phone: Start: 08-06-2015 End: 08-06-2015 BNP *Brain Natriuretic Peptide BNP [facility] [employer] Work Phone: Start: 08-06-2015 End: 08-06-2015 CBC W Auto Differential panel - Blood *CBC without Diff [facility] [employer] Work Phone: Start: 08-06-2015 End: 08-06-2015 Follow up Appt 3 weeks Follow up Appt 3 weeks [facility] [employer] Work Phone: Start: 08-06-2015 End: 08-06-2015 MMM MMM [facility] [employer] Work Phone: Start: 07-16-2015 End: 08-27-2015 Cardiac Rehab Cardiac Rehab [facility] [employer] Work Phone: Start: 07-16-2015 End: 07-16-2015 Ecg routine ecg w/least 12 lds w/i&r EKG (In office) [facility] [employer] Work Phone: Start: 07-16-2015 End: 07-16-2015 Follow Up Appt 6 weeks Follow Up Appt 6 weeks [facility] [employer] Work Phone: Start: 07-16-2015 End: 07-16-2015 MMM MMM [facility] [employer] Work Phone: Start: 06-16-2015 End: 06-17-2015 BNP *Brain Natriuretic Peptide BNP [facility] [employer] Work Phone: Start: 06-16-2015 End: 06-16-2015 Ecg routine ecg w/least 12 lds w/i&r EKG (In office) [facility] [employer] Work Phone: Start: 06-16-2015 End: 06-16-2015 Echocardiography Echocardiogram (complete) [facility] [employer] Work Phone: Start: 06-16-2015 End: 07-16-2015 Follow Up Appt 6 months Follow Up Appt 6 months [facility] [employer] Work Phone: Start: 06-16-2015 End: 07-16-2015 MMM MMM [facility] [employer] Work Phone: Start: 12-04-2014 End: 12-04-2014 AUTOMATION QA ANALYST AUTOMATION QA ANALYST [facility] [employer] Work Phone: Start: 12-04-2014 End: 12-04-2014 Ecg routine ecg w/least 12 lds w/i&r EKG (In office) [facility] [employer] Work Phone: Start: 12-04-2014 End: 12-04-2014 Follow Up Appt 6 months Follow Up Appt 6 months [facility] [employer] Work Phone: Start: 12-04-2014 End: 12-04-2014 Nuclear stress test -Lexiscan Nuclear stress test -Lexiscan [facility] [employer] Work Phone: Start: 05-29-2014 End: 05-29-2014 24 hour holter monitor 24 hour holter monitor [facility] [employer] Work Phone: Start: 05-29-2014 End: 05-29-2014 Follow Up Appt 6 months Follow Up Appt 6 months [facility] [employer] Work Phone: Start: 05-29-2014 End: 05-29-2014 MMM MMM [facility] [employer] Work Phone: Start: 12-31-2013 End: 12-31-2013 AUTOMATION QA ANALYST AUTOMATION QA ANALYST [facility] [employer] Work Phone: Start: 12-31-2013 End: 12-31-2013 Follow Up Appt 6 months Follow Up Appt 6 months [facility] [employer] Work Phone: Start: 06-25-2013 End: 06-25-2013 Ecg routine ecg w/least 12 lds w/i&r EKG (In office) [facility] [employer] Work Phone: Start: 06-25-2013 End: 06-25-2013 Follow Up Appt 6 months Follow Up Appt 6 months [facility] [employer] Work Phone: Start: 06-25-2013 End: 06-25-2013 MMM MMM [facility] [employer] Work Phone: Start: 05-19-2013 End: 06-21-2013 *Hepatic Function Panel *Hepatic Function Panel [facility] [employer] Work Phone: Start: 05-19-2013 End: 06-21-2013 Lipid panel [AGGREGATE] *Lipid Profile CC PCP [facility] [employer] Work Phone: Start: 11-17-2012 End: 12-05-2012 *Hepatic Function Panel *Hepatic Function Panel [facility] [employer] Work Phone: Start: 11-17-2012 End: 12-05-2012 Lipid panel [AGGREGATE] *Lipid Profile [facility] Work Phone: Start: 2012 RSV Vaccine (1 - 1-dose 75+ series) RSV Vaccine (1 - 1-dose 75+ series) [facility] Start: 06-21-2012 End: 06-21-2012 Follow Up Appt 1 year Follow Up Appt 1 year [facility] Work Phone: Start: 06-23-2011 End: 06-23-2011 Follow Up Appt 1 year Follow Up Appt 1 year [facility] Work Phone: Start: 06-21-2011 Shingrix Vaccine (2 of 3) Shingrix Vaccine (2 of 3) [facility] Start: 1997 RSV Vaccine (1 - 1-dose 60+ series) RSV Vaccine (1 - 1-dose 60+ series) [facility] Start: 08-20-1953 Depression Screening Depression Screening [facility] Anion gap in Serum or Plasma [facility] BUN/Creatinine ratio [facility] Calcium [Mass/volume ] in Serum or Plasma [facility] Carbon dioxide, tota l [Moles/volume] in Central venous blood [facility] Catheterization of left heart [facility] Work Phone: Creatinine [Mass/vol ume] in Serum or Plasma [facility] Electrocardiographic procedure [facility] Erythrocyte mean cor puscular volume determination [facility] Glucose [Mass/volume ] in Serum or Plasma [facility] Hematocrit [Volume F raction] of Blood [facility] Hemoglobin [Mass/vol ume] in Blood [facility] Leukocytes [#/volume ] in Blood [facility] Mean corpuscular hem oglobin concentration determination [facility] Mean corpuscular hem oglobin determination [facility] Measurement of renal function [facility] Neutrophil count [facility] Neutrophil percent differential count [facility] Patient Education [facility] Work Phone: Patient referral [facility] Work Phone: Platelets [#/volume] in Blood [facility] Potassium measurement [facility] Red blood cell count [facility] Red cell distributio n width determination [facility] Serum chloride measurement [facility] Sodium measurement [facility] Urea nitrogen [Mass/ volume] in Serum or Plasma [facility] Urine culture [facility] Urine culture [facility] US Heart [facility] XR Chest PA and Lateral [facility] Immunizations Immunization Date Immunization Notes Care Provider Fa cility 12-31-2024 tetanus toxoid, redu anuradha diphtheria toxoid, and acellular pertussis vaccine, adsorbed Dr. Keron Maciel MD Work Phone: [facility] 11-12-2023 tetanus toxoid, redu anuradha diphtheria toxoid, and acellular pertussis vaccine, adsorbed Dr. Keron Maciel MD Work Phone: [facility] 02-01-2022 tetanus toxoid, redu anuradha diphtheria toxoid, and acellular pertussis vaccine, adsorbed Dr. Keron Maciel Work Phone: [facility] 08-07-2020 Covid (Moderna) Dr. Keron hdez Work Phone: [facility] 07-10-2020 Covid (Moderna) Dr. Keron hdez Work Phone: [facility] 03-07-2020 influenza virus vacc ine, unspecified formulation Barbie Nova Work Phone: [facility] 02-07-2020 tetanus toxoid, redu anuradha diphtheria toxoid, and acellular pertussis vaccine, adsorbed Dr. Keron Maciel Work Phone: [facility] 03-07-2019 influenza, high dose seasonal, preservative-free Barbie Nova Work Phone: [facility] 03-03-[address] Keron Maciel Work Phone: [facility] 03-08-2018 influenza, injectabl e, quadrivalent, contains preservative Barbie Nova Work Phone: [facility] 03-08-2018 influenza, injectabl e, quadrivalent, preservative free Dr. Keron Maciel MD Work Phone: [facility] 04-07-2015 influenza, injectabl e, quadrivalent, preservative free Dr. Keron Maciel Work Phone: [facility] 04-07-2015 influenza, seasonal, injectable Dr. Keron Maciel Work Phone: [facility] 03-19-2015 influenza, high dose seasonal, preservative-free [employer] Work Phone: [facility] 03-19-2015 influenza, injectabl e, quadrivalent, preservative free Dr. Keron Maciel MD Work Phone: [facility] 12-23-2014 pneumococcal conjuga te vaccine, 13 valent [employer] Work Phone: [facility] 06-19-2014 influenza, injectabl e, quadrivalent, preservative free Dr. Keron Maciel MD Work Phone: [facility] 04-03-2013 influenza virus vacc ine, unspecified formulation [employer] Work Phone: [facility] 04-26-2011 zoster vaccine, live [employer] Work Phone: [facility] Work Phone: 04-05-2010 influenza virus vacc ine, unspecified formulation [employer] Work Phone: [facility] 03-19-2009 influenza virus vacc ine, unspecified formulation [employer] Work Phone: [facility] 11-17-2005 tetanus and diphther ia toxoids, adsorbed, preservative free, for adult use (2 Lf of tetanus toxoid and 2 Lf of diphtheria toxoid) [employer] Work Phone: [facility] 04-28-2005 influenza virus vacc ine, unspecified formulation [employer] Work Phone: [facility] [facility] Work Phone: 03-19-2004 influenza virus vacc ine, whole virus Barbie Testrake Work Phone: [facility] 04-29-2003 pneumococcal polysaccharide vaccine, 23 valent Barbiepercy Nova Work Phone: [facility] 04-29-[address] Elisabeth Maciel Work Phone: [facility] Work Phone: 04-29-2003 pneumococcal vaccine , unspecified formulation Dr. Keron Maciel Work Phone: [facility] 03-19-2003 influenza virus vacc ine, whole virus Barbie Nova Work Phone: [facility] Payers Date Payer Category Payer Self-pay [id number] 2017 Medicare AETNA MEDICARE A ETNA MEDICARE PPO [id number] 2017-Present [phone] [address] [place] [address] [facility] [id number] 2017 Medicare (Managed Care) [facility] [id number] 2017 Private Health Insurance [id number] 2006 Unknown [id number] Medicare [id number] Medicare [id number] Unknown [id number] 2.16.840.1.735470.3.579.2. 462 Unknown [id number] 2.16.840.1.740399.3.579.2. 462 Unknown [id number] 2.16.840.1.832970.3.579.2. 462 Unknown [id number] 2.16.840.1.921212.3.579.2. 462 Unknown [id number] 2.16.840.1.842521.3.579.2. 462 Unknown [id number] 2.16.840.1.492597.3.579.2. 462 Unknown [id number] 2.16.840.1.783932.3.579.2. 462 Unknown [id number] 2.16.840.1.729265.3.579.2. 462 Unknown [id number] 2.16.840.1.765207.3.579.2. 462 Unknown [id number] 2.16.840.1.766268.3.579.2. 462 Unknown [id number] 2.16.840.1.289034.3.579.2. 462 Unknown [id number] 2.16.840.1.261243.3.579.2. 462 Unknown [id number] 2.16.840.1.088271.3.579.2. 462 Unknown [id number] 2.16.840.1.769269.3.579.2. 462 Unknown [id number] 2.16.840.1.454708.3.579.2. 462 Unknown [id number] 2.16.840.1.392287.3.579.2. 462 Unknown [id number] 2.16.840.1.115237.3.579.2. 462 Unknown [id number] 2.16.840.1.217254.3.579.2. 462 Unknown [id number] 2.16.840.1.951460.3.579.2. 462 Unknown [id number] 2.16.840.1.314942.3.579.2. 462 Unknown [id number] 2.16.840.1.208731.3.579.2. 462 Unknown [id number] 2.16.840.1.009607.3.579.2. 462 Unknown [id number] 2.16.840.1.552063.3.579.2. 462 Unknown [id number] 2.16.840.1.651061.3.579.2. 462 Unknown [id number] 2.16.840.1.031686.3.579.2. 462 Unknown [id number] 2.16.840.1.192523.3.579.2. 462 Unknown [id number] 2.16.840.1.951166.3.579.2. 462 Unknown [id number] 2.16.840.1.369902.3.579.2. 462 Unknown [id number] 2.16.840.1.021427.3.579.2. 462 Unknown [id number] 2.16840.1.428596.3.579.2. 462 Social History Date Type Detail Facility Start: 10-13-2021 End: 09-14-2023 Tobacco smoking status WIIS Unknown if ever smoked [facility] Start: 02-12-2020 None [facility] Start: 02-12-2020 Spouse/ Signif icant Other [facility] Start: 02-12-2020 Non-smoker [facility] Start: 1935 Sex Assigned At Male [facility] Start: 11-01-2010 End: 01-07-2025 Tobacco smoking status WIIS Ex-smoker [facility] Work Phone: Start: 10-18-1959 End: 10-17-1964 History of tobacco use Current smoker [facility] Work Phone: Start: 10-18-1959 End: 10-17-1964 History of tobacco use Cigarette Smoker [facility] Work Phone: Start: 11-01-2010 End: 07-31-2023 Cigarettes smoked current (pack per day) - Reported 1 [facility] Start: 11-01-2010 Tobacco use and exposure Smokeless tobacco non-user [facility] Work Phone: Start: 07-31-2023 End: 12-13-2024 Alcohol intake Current non-drinker of alcohol (finding) [facility] Start: 09-24-2018 End: 07-31-2023 Tobacco use panel [facility] Adult Depression Screening Assessment 0 [facility] Start: 1935 Sex Assigned At Not on file [facility] Start: 06-16-2024 Tobacco Use Tobacco Use [facility] Medical Equipment Procedure Code Equipment Code [...] 05/03/2017 3:51 PM Soham Mcgraw III, MD [facility] 05-03-2017 Are you blind, or do you have serious difficulty seeing, even when wearing glasses No 05/03/2017 3:51 PM Soham Mcgraw III, MD [facility] 05-03-2017 Do you have serious difficulty walking or climbing stairs No 05/03/2017 3:51 PM Soham Mcgraw III, MD [facility] 05-03-2017 Do you have difficul ty dressing or bathing No 05/03/2017 3:51 PM Soham Mcgraw III, MD [facility] 05-03-2017 Because of a physica l, mental, or emotional condition, do you have difficulty doing errands alone such as visiting a physician's office or shopping No 05/03/2017 3:51 PM Soham Mcgraw III, MD [facility] Mental Status Date Assessment Result Facility 01-07-2025 Cognitive function Awake;Alert;A ppropriate; Follows Commands [facility] Work Phone: 05-03-2017 Because of a physica l, mental, or emotional condition, do you have serious difficulty concentrating, remembering, or making decisions No 05/03/2017 3:51 PM Soham Mcgraw III, MD [facility] Clinical Notes 07-01-2015 to 01-07-2025 Note Date & Type Note Facility 01-07-2025 Radiology Diagnostic study note [facility] 01-07-2025 Radiology Diagnostic study note [facility] 01-07-2025 Radiology Diagnostic study note [facility] 12-31-2024 Radiology Diagnostic study note [facility] 12-21-2024 Discharge summary [facility] 12-21-2024 Radiology Diagnostic study note [facility] Imaging Services [address] [place], [place] [id number] Chest without Contrast MR#: [id number] Acct: [id number] Name: OLMAN SYED Rep #: [id number] : 1935 M 89 From: Juana Jimenez MD PCP: Dr. Keron Maciel MD Status: REG ER Study:Chest without Contrast Date of Exam: 12/21/24 Exam# [id number] Ordering Dr: Rhonda Sorenson DO PROCEDURE: CHEST [...] Contrast IMPRESSION: No acute abnormality Reading Location: [facility] CC: Dr. Keron Maciel MD; Dr. Derick Sorenson DO ~ Cyanide Pot Hardener: Signed [facility] 12-21-2024 Radiology Diagnostic study note [facility] Imaging Services [address] [place] [address] Chest PA and Lateral MR#: [id number] Acct: [id number] Name: OLMAN SYED Rep #: [id number] : 1935 M 89 From: Babita Myers MD PCP: Dr. Keron Maciel MD Status: REG ER Study:Chest PA and Lateral Date of Exam: 12/21/24 Exam# [id number] Ordering Dr: Rhonad Sorenson DO PROCEDURE: CHEST PA AND LATERAL [...] radiograph with left mid/lingular infiltrate. Reading Location: [facility] CC: Dr. Keron Maciel MD; Dr. Derick Sorenson DO ~ Cyanide Pot Hardener: Signed [facility] 12-21-2024 Discharge summary Note Date/Time December 21, 2024 8:32p m [facility] Medical Records Department [address] [place] [address] Emergency Department Summary 12/21/24 MR#: [id number] Acct: [id number] Name: OLMAN SYED Rep #:[id number] : [...] distance he is very short of breath. [facility] Medical History Pneumonia Parkinson's disease Vasovagal [...] flank pain Anemia Atherosclerotic heart disease of [place] coronary artery without angina pectoris 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 [...] Placard #1 ea 10/14/20 Unknown Rx vitamins A,C,V-ymvr-kllcuv 2,148 1 tab PO BID 12/17/20 Unknown History mcg-113 mg-45 mg-17.4 mg tablet (PreserVision AREDS) pen needle, diabetic 32 gauge x #100 ea 12/25/20 Unkno wn Rx 1/ Compression stockings (10-20) #2 ea 01/04/24 Unknown R x Left [...] follow commands knew that he was at [facility] Skin: Warm, dry, intact no rashes [...] % (Auto) 60.1 Lymph % (Auto) 24.4 Shoshone % (Auto) 10.8 H Eos % (Auto) [...] radiograph with left mid/lingular infiltrate. Reading Location: [facility] Chest CT 12/21/24 18:54 IMPRESSION: No acute abnormality Reading Location: [facility] Discharge Plan Triage Chief Complaint: Shortness of [...] not show any acute abnormalities. Print Language: Brazilian Disposition Disposition: Home, Self Care What to do if you have Problems For any increased pain, shortness of breath, bleeding, nausea or vomiting, chestpain, or any unexpected problems, contact your Primary Care Provider. Call [facility] ([phone]) or report to the closest Emergency Room. Call 911 if necessary. 12/21/242031 <Electronically signed by Derick Sorenson DO> Cosigner Signature (if applicable): CC: Dr. Keron Maciel MD ~ Signed [facility] Work Phone: 1(694) 982-373306-27-2025 NoteHNO ID: [id number] Author: BARBIE NOVA, ? Service: ? Author [...] Objective: Patient presents to clinic ambulating in [facility] Vasc: DP and PT pulses are [...] to RTC in 3-4 months. Barbie Nova [facility]06-27-2025 History of Present illness Narrative* Barbie Nova [...] Objective: Patient presents to clinic ambulating in [facility] Vasc: DP and PT pulses are [...] Care Dinorah Dempsey LPN [facility] NoteHNO ID: [id number] Author: DINORAH DEMPSEY LPN Service: ? Author Type: LICENSED NURSE Type: Progress Notes Filed: 12/14/2024 09:07 Note Text: AMB ROOMING INTAKE FLOWSHEET DATA Patient presents with: Left Foot - Established Patient, Follow Up, Diabetic Foot Care Right Foot - Established Patient, Follow Up, Diabetic Foot Care [facility] Radiology Diagnostic study note [facility] Imaging Services [address] [place] [address] Chest PA and Lateral MR#: [id number] Acct: [id number] Name: OLMAN SYED Rep #: [id number] : 1935 M 89 From: Juwan Suazo MD PCP: Dr. Keron Maciel MD Status: REG CLI Study:Chest PA and Lateral Date of Exam: 12/09/24 Exam# [id number] Ordering Dr: Keron Maciel MD PROCEDURE: CHEST [...] deformities of the right ribs. Reading Location: [place] [address] CC: Dr. Keron Maciel MD ~ Cyanide Pot Hardener: Signed [facility]06-09-2025 Evaluation note* Diagnosis Onset Date Resolution Status Admit Date Atherosclerotic heart diseas e of [place] coronary artery without angina pectoris chronic November 25, 2024 1 1:01am CKD (chronic kidney disease) stage 3, GFR 30-59 ml/min chronic November 252024 11:01am Essential (primary) hypertension [facility] onic November 25, 2024 11:01am Diabetes mellitus type 2, insulin dependent inactive November 25, 2024 11:01am Generalized weakness inactive November 25, 2024 11:01am [facility] Work Phone: 1(402) 686-168606-09-2025 Evaluation note* Diagnosis Onset Date Resolution Status Admit Date Atherosclerotic heart diseas e of [place] coronary artery without angina pectoris chronic November [...] 09 1:52pm Atherosclerotic heart diseas e of [place] coronary artery without angina pectoris chronic December 09, 2024 1:52pm CKD (chronic kidney disease) stage 3, GFR 30-59 ml/min chronic November 182024 1:52pm Essential (primary) hypertension chr onic December 09, 2024 1:52pm HLD (hyperlipidemia) chronic December 09, 2024 1:52pm DANYELL (obstructive sleep apnea) chroni c December 09, 2024 1:52pm [facility] Work Phone: 1(940) 547-397406-09-2025 Evaluation note* Diagnosis Onset Date Resolution Status Admit Date Atherosclerotic heart disease of [place] coronary artery without angina pectoris chronic November [...] December 09 1:52pm Atherosclerotic heart disease of [place] coronary artery without angina pectoris chronic December [...] July 01, 2015 inactive December 23 1:32pm [facility] Work Phone: 1(962) 910-677606-09-2025 Evaluation note* Diagnosis Onset Date Resolution Status Admit Date Atherosclerotic heart disease of [place] coronary artery without angina pectoris chronic November [...] December 09 1:52pm Atherosclerotic heart disease of [place] coronary artery without angina pectoris chronic December [...] of breath inactive December 23, 2024 1:32pm [facility] Work Phone: 1(570) 843-421506-09-2025 Evaluation note* Diagnosis Onset Date Resolution Status Admit Date Atherosclerotic heart disease of [place] coronary artery without angina pectoris chronic November [...] December 09 1:52pm Atherosclerotic heart disease of [place] coronary artery without angina pectoris chronic December [...] 172024 11:10am Obesity chronic December 30 11:10am [facility] Work Phone: 1(433) 486-462906-09-2025 Evaluation note* Diagnosis Onset Date Resolution Status Admit Date Atherosclerotic heart disease of [place] coronary artery without angina pectoris chronic November [...] December 09 1:52pm Atherosclerotic heart disease of [place] coronary artery without angina pectoris chronic December [...] 172024 11:10am Obesity chronic December 30 11:10am Facial contusion acute December 1:55pm Fall acute January 06 1:55pm Frequent falls acute January 06, 2025 1:55pm Parkinson's disease acute January 06, 2025 1:55pm Pneumonia acute January 06 1:55pm Polyneuropathy acute January 06, 2025 1:55pm Atherosclerotic heart disease of [place] coronary artery without angina pectoris chronic January 06, 2025 1:55pm 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 disease chronic 2024 1:55pm Essential (primary) hypertension chronic January 06, 2025 1:55pm Diabetes mellitus type 2 in obese acute January 07, 2025 3:19am Facial contusion acute December 3:19am Generalized weakness acute January 07, 2025 3:19am Hypothyroidism acute January 07, 2025 3:19am Multiple falls acute January 07, 2025 3:19am Parkinson's disease acute January 07, 2025 3:19am Urinary tract infection acute 2024 3:19am CKD (chronic kidney disease) stage 3, GFR 30-59 ml/min chronic December 182024 3:19am Essential (primary) hypertension chronic January 07, 2025 3:19am Mild cognitive impairment chronic January 07, 2025 3:19am DANYELL (obstructive sleep apnea) chronic January 07, 2025 3:19am [facility] Work Phone: 1(200) 289-418306-09-2025 Radiology Diagnostic study note [facility] Imaging Services [address] [place] [address] Chest PA and Lateral MR#: [id number] Acct: [id number] Name: OLMAN SYED Rep #: [id number] : 1935 M 89 From: Ana Maza MD PCP: Dr. Keron Maciel MD Status: REG CLI Study:Chest PA and Lateral Date of Exam: 11/25/24 Exam# [id number] Ordering Dr: Keron Maciel MD PROCEDURE: CHEST [...] border, similar to the prior. Reading [facility] CC: Dr. Keron Maciel MD ~ Cyanide Pot Hardener: Signed [facility]06-04-2025 Discharge summary [facility] Medical Records Department [address] [place] [address] Emergency Department Summary 11/19/24 MR#: [id number] Acct: [id number] Name: OLMAN SYED Rep #:[id number] : [...] improvement of symptoms he presents for evaluation. [facility] Medical History Parkinson's disease Vasovagal episode [...] flank pain Anemia Atherosclerotic heart disease of [place] coronary artery without angina pectoris 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 [...] Placard #1 ea 10/14/20 Unknown Rx vitamins A,C,K-qnez-ujfbzk 2,148 1 tab PO BID 12/17/20 Unknown History mcg-113 mg-45 mg-17.4 mg tablet (PreserVision AREDS) pen needle, diabetic 32 gauge x #100 ea 12/25/20 Unkno wn Rx 1/4 Compression stockings (-) #2 ea 01/04/24 Unknown R x Left [...] % (Auto) 65.1 Lymph % (Auto) 20.0 [place]oshone % (Auto) 9.5 Eos % (Auto) 2.1 [...] Sl. Cloudy Urine pH 6.0 Ur Specific [place] 1.015 Urine Protein 30 H Urine Glucose [...] in the setting of cardiomegaly. Reading Location: [place] [address] Chest x-ray as interpreted by the emergency [...] the ER for repeat evaluation. Print Language: Brazilian Disposition Disposition: Home, Self Care What to do if you have Problems For any increased pain, shortness of breath, bleeding, nausea or vomiting, chestpain, or any unexpected problems, contact your Primary Care Provider. Call [facility] ([phone]) or report tothe closest Emergency Room. Call 911 if necessary. 11/20/24 0030 Cosigner Signature (if applicable): CC: Dr. Keron Maciel MD ~ Signed [facility]06-03-2025 Radiology Diagnostic study note [facility] Imaging Services [address] [place] [address] Chest PA and Lateral MR#: [id number] Acct: [id number] Name: OLMAN SYED Rep #: [id number] : 1935 M 89 From: Johan Higgins MD PCP: Dr. Keron Maciel MD Status: REG ER Study:Chest PA and Lateral Date of Exam: 11/19/24 Exam# [id number] Ordering Dr: Sharon Corrales DO PROCEDURE: CHEST PA AND LATERAL 11/19/2024 REASON FOR EXAM: DYSPNEA TECHNIQUE: Frontal and lateral views of the chest. COMPARISON: 07/16/2023. FINDINGS: Prior sternotomy. The heart is enlarged. Pulmonary vascular congestion. No pleural effusion or pneumothorax. Partially visualized lumbar fixation. RAD/Chest PA and Lateral IMPRESSION: Pulmonary vascular congestion in the setting of cardiomegaly. Reading Location: [place] [address] CC: Dr. Keron Maciel MD; Helio Corrales DO ~ Cyanide Pot Hardener: Signed [facility]06-03-2025 Discharge summary Author Helio Corrales [facility] Note Date/Time November 20, 2024 12:30 am [facility] Medical Records Department [address] [place] [address] Emergency Department Summary 11/19/24 MR#: [id number] Acct: [id number] Name: OLMAN SYED Rep #:[id number] : [...] improvement of symptoms he presents for evaluation. [facility] Medical History Parkinson's disease Vasovagal episode [...] flank pain Anemia Atherosclerotic heart disease of [place] coronary artery without angina pectoris 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 [...] Placard #1 ea 10/14/20 Unknown Rx vitamins A,C,N-wfve-mlytpm 2,148 1 tab PO BID 12/17/20 Unknown [...] % (Auto) 65.1 Lymph % (Auto) 20.0 [place] % (Auto) 9.5 Eos % (Auto) 2.1 [...] Sl. Cloudy Urine pH 6.0 Ur Specific [place] 1.015 Urine Protein 30 H Urine Glucose [...] in the setting of cardiomegaly. Reading Location: [place] [address] Chest x-ray as interpreted by the emergency [...] the ER for repeat evaluation. Print Language: Brazilian Disposition Disposition: Home, Self Care What to do if you have Problems For any increased pain, shortness of breath, bleeding, nausea or vomiting, chestpain, or any unexpected problems, contact your Primary Care Provider. Call [facility] ([phone]) or report to the closest Emergency Room. Call 911 if necessary. 11/20/24 0030 <Electronically signed by Helio Corrales DO> Cosigner Signature (if applicable): CC: Dr. Keron Maciel MD ~ Signed [facility] Work Phone: 1(182) 311-926903-21-2025 Instructions* Patient Instructions* Barbie Nova - 09/06/2024 [...] (or decreased sensation in your feet) a catalogue compiler should always cut your toenails. Be Careful [...] Go to your health care provider or catalogue compiler to treat these conditions. Can use tubigrip for lower extremity swelling. Apply during the day and can remove at night [facility]25 NoteHNO ID: [id number] Author: BARBIE NOVA, ? Service: ? Author [...] to RTC in 3-4 months. Barbie Nova [facility]03-21-2025 History of Present illness Narrative* Barbie Nova [...] Cintia Izquierdo MA Student documented in [facility]-2025 NoteHNO ID: [id number] Author: CINTIA IZQUIERDO MA Student Service: ? Author Type: Student Type: Progress Notes Filed: 09/06/2024 14:17 Note Text: AMB ROOMING INTAKE FLOWSHEET DATA Patient presents with: Left Foot - Established Patient, Follow Up, Diabetic Foot Care Right Foot - Established Patient, Follow Up, Diabetic Foot Care Cintia Izquierdo MA [facility]-20[facility] Evaluation note* Diagnosis Onset Date Resolution Status Admit Date Left foot drop acute July 202024 1:54pm Parkinson's disease acute Febru 2024 1:54pm Mild cognitive impairment chronic August 01, 2024 1:54pm Orthostatic hypotension resolved [facility] 2024 1:54pm [facility] Work Phone: 1(844) 436-121002-13-2025 Evaluation note* Diagnosis Onset Date Resolution Status Admit Date Left foot drop acute July 202024 1:54pm Parkinson's disease acute Febru 2024 1:54pm Mild cognitive impairment chronic August 01, 2024 1:54pm Orthostatic hypotension resolved [facility] 2024 1:54pm Diabetes mellitus type 2, insulin dependent acute November 25, 2024 11:01am Generalized weakness acute November 25, 2024 11:01am Atherosclerotic heart diseas e of [place] coronary artery without angina pectoris chronic November 11:01am CKD (chronic kidney disease) stage 3, GFR 30-59 ml/min chronic November 252024 11:01am Essential (primary) hypertension chronic November 25, 2024 1 1:01am [facility] Work Phone: 1([phone]) 165-152202-06-2025 Evaluation note* Diagnosis Onset Date Resolution Status Admit Date Diabetes mellitus type 2 in obese acute July 25 2:30pm Parkinson's disease acute Febru marli2024 2:30pm Polyneuropathy acute July 252024 2:30pm Vasovagal episode acute Februar y 2024 2:30pm Jxibb-rf-jzxamxr kidney injury chron ic July 25, 2024 2:30pm Atherosclerotic heart diseas e of [place] coronary artery without angina pectoris chronic July [...] Orthostatic hypotension resolved F ebruary 2024 1:54pm [facility] Work Phone: 1(294) 984-279012-29-2024 [facility]12-19-2024 NoteHNO ID: [id number] Author: BARBIE NOVA, ? Service: ? Author [...] to RTC in 3-4 months. Barbie Nova [facility]12-19-2024 History of Present illness Narrative* Barbie Nova [...] foot/nail care. [facility] 02/29/24 [facility]Prem[facility] Instructions* Patient Instructions* Barbie Nova - 06/06/2024 [...] (or decreased sensation in your feet) a catalogue compiler should always cut your toenails. Be Careful [...] Go to your health care provider or catalogue compiler to treat these conditions. documented in this encounterPrem[facility]12-19-2024 NoteHNO ID: [id number] Author: ROSITA GARNER, NANCI Service: ? Author Type: Registered Nurse Type: Progress Notes Filed: 06/06/2024 10:22 Note Text: Patient presents with: Left Foot - Established Patient, Follow Up, Diabetic Foot Care Right Foot - Established Patient, Follow Up, Diabetic Foot Care Patient presents for follow up diabetic foot/nail care. [facility] 02/29/24[facility]09-[facility]-2024 NoteHNO ID: [id number] Author: BARBIE NOVA, ? Service: ? Author [...] to RTC in 3-4 months. Barbie Nova [facility]09-12-2024 History of Present illness Narrative* Barbie Nova - 02/29/2024 1:53 PM EDT Last time [...] Objective: Patient presents to clinic ambulating in [facility] Vasc: DP and PT pulses are [...] foot/nail care. Due for diabetic foot exam. [facility] 11/16/23 documented in [facility]Prem[facility]-2024 NoteHNO ID: [id number] Author: ROSITA GARNER RN Service: ? Author Type: Registered Nurse Type: Progress Notes Filed: 02/29/2024 14:01 Note Text: Patient presents with: Left Foot - Established Patient, Follow Up, Diabetic Foot Check Right Foot - Established Patient, Follow Up, Diabetic Foot Check Patient presents for follow up diabetic foot/nail care. Due for diabetic foot exam. [facility] 11/16/23[facility]05-30-2024 Instructions* Patient Instructions* Barbie Nova - 11/16/2023 [...] (or decreased sensation in your feet) a catalogue compiler should always cut your toenails. Be Careful [...] Go to your health care provider or catalogue compiler to treat these conditions. documented in this [facility] History of Present illness Narrative* Barbie Nova [...] Care Dinorah Dempsey LPN documented in this [facility] Miscellaneous Notes* Addendum Note - Barbie Nova - 07/31/2023 1:32 PM ESTAddended by: BARBIE NOVA DPM on: 07/31/2023 01:32 PM Modules accepted: Orders documented in this encounterPrem[facility]24 Instructions* Patient Instructions* Barbie Nova - 07/31/2023 [...] (or decreased sensation in your feet) a catalogue compiler should always cut your toenails. Be Careful [...] Go to your health care provider or catalogue compiler to treat these conditions. documented in this [facility] History of Present illness Narrative* Barbie Nova [...] HISTORY Diagnosis Date Atherosclerotic heart disease of [place] coronary artery without angina pectoris 12/10/2013 BPH (benign prostatic hypertrophy) with urinary retention 07/07/2014 Calculus of kidney Class 3 severe obesity due to excess calories with body mass index (BMI) of 40.0 to 44.9 in adult ([facility]) Controlled type 2 diabetes mellitus with stage 3 chronic kidney disease, without long-term current use of insulin ([facility]) 03/26/2018 Diaphragmatic hernia without mention of obstruction [...] SPEC WHEN PFRMD 01/29/15 Colonoscopy ECHO 06/24/2015 [facility] - see scanned documents ESOPHAGOGASTRODUODENOSCOPY TRANSORAL DIAGNOSTIC [...] Care Dinorah Dempsey LPN [place] [id number] Discharge summary Author Mark Aggarwal [facility] December 09, 2022 2:12pm Note Date/Time December 09, 2022 2:12 pm [facility] Physical Therapy [facility] [address] [place] [address] / REHABILITATION SERVICES DISCHARGE SUMMARY MR#: [id number] Acct: [id number] Name: OLMAN SYED Rep #: [id number] : 1935 87 From: Mark Aggarwal PT, ATC Referring Dr.: Dr. Rich Padgett MD Status: REG RCR Insurance: [facility] SELF PAY INSURANCE It has been [...] please feel free to call me at [phone]. Thank you for the referral of thispatient. Sincerely, Mark Aggarwal PT, ATC <Electronically signed by Mark Aggarwal PT, ATC> 12/09/22 [id number] CC: Dr. Keron Maciel MD; Dr. Rich Padgett MD ~ [facility] Signed [facility] Work Phone: 1(765) 176-137306-23-2023 Discharge summary Author Kalia Hendrickson [facility] December 09, 2022 1:32pm Note Date/Time December 09, 2022 1:32 pm [facility] Physical Therapy [facility] [address] [place] [address] / REHABILITATION SERVICES DISCHARGE SUMMARY MR#: [id number] Acct: [id number] Name: OLMAN SYED Rep #: [id number] : 1935 87 From: Kalia Hendrickson DP T Referring Dr.: Dr. Rich Padgett MD Status: REG RCR [facility] It has [...] please feel free to call me at [phone]. Thank you for the referral of thispatient. [...] <Electronically signed by Kalia Hendrickson DPT> 12/09/22 1332 CC: Dr. Keron Maciel MD; Dr. 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 [facility] Work Phone: [phone] 766-197501-13-2016 Evaluation note* Diagnosis Onset Date Resolution Status Atherosclerotic heart diseas e of [place] coronary artery without angina pectoris chronic Essential (primary) hypertension chronic History of coronary artery stent placement June chronic HLD (hyperlipidemia) chronic Cardiomyopathy acute Leg swelling acute Obesity acute Polyneuropathy acute 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 CKD (chronic kidney disease) stage 3, GFR 30-59 ml/min chronic Diabetes mellitus chronic Essential (primary) hypertension chronic History of coronary artery stent placement June chronic HLD (hyperlipidemia) chronic DANYELL (obstructive sleep apnea) chronic Parkinson's disease chronic Cardiac arrhythmia acute Abnormality of gait and mobility chronic 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 Keron Maciel MD Status:REG ER Location: ED ADDENDUM by Dr. Derick Sorenson DO on 01/07/25 at 0315 Patient is EKG reviewed showed sinus rhythm at a rate of 73 bpm with evidence ofright bundle branch block. WA interval 190 01/07/25 0315<Electronically signed by Derick Sorenson DO> Cosigner Signature (if applicable): cc: Dr. Keron Maciel MD ~* Signed HPI History of Present Illness Chief Complaint: Weakness Narrative Narrative: Patient is a 89-year-old male with past medical history of Parkinson's disease, TIA, vitamin B-12 deficiency, CVA, BPH, hypothyroidism, chronic kidney disease, right bundle branch block, type 2 diabetes, hyperlipidemia who presented to the emergency department with a chief complaint of multiple falls. Patient states that he has had increased weakness over the last 3 weeks and he states that he has had multiple falls over the last several days. Patient states that he is isidra blood thinner but does not recall what blood thinner he is on he states that he is unsure why he is falling he just feels very weak overall. Patient states that he did not pass out he did not lose consciousness. Patient fell twice at night within a few hours. [facility] Medical History Frequent falls Shortness of breath at rest Pneumonia Parkinson's disease Vasovagal episode Obesity (BMI [...] flank pain Anemia Atherosclerotic heart disease of [place] coronary artery without angina pectoris 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 [...] Placard #1 ea 10/14/20 Unknown Rx vitamins A,C,O-rmmi-eacirw 2,148 1 tab PO BID 12/17/20 Unknown History mcg-113 mg-45 mg-17.4 mg tablet (PreserVision AREDS) pen needle, diabetic 32 gauge x #100 ea 12/25/20 Unkno wn Rx 1/ Compression stockings (10-20) #2 ea 01/04/24 Unknown R x Left AFO #1 ea 01/04/24 Unknown Rx levothyroxine 50 mcg tablet 50 mcg PO DAILY thyroid #9 0 tabs 02/01/24 Unknown Rx escitalopram oxalate 10 mg tablet 10 mg PO DAILY #90 t abs 03/05/24 Unknown Rx pantoprazole 40 mg tablet,delayed See Rx Instructions .Route 03/05/24 Unknown Rx release .COMPLEX #90 tabs metformin 500 mg tablet 500 mg PO [...] pain 11/19/24 Unknown History 325 mg tablet furosemide 40 mg tablet 40 mg PO DAILY #90 TABLETS 0 12/23/24 Unknown Rx ranolazine 500 mg tablet,extended 500 mg PO BID #180 t abs 01/06/25 Unknown Rx release,12 hr Allergy/AdvReac Type Severity Reaction Status Date / Time lisinopril Allergy Mild Cough Verified 01/07/25 01:07 naproxen (From Aleve) Allergy HIVES Verified 01/07/25 01:07 losartan AdvReac Intermediate Jitters Verified 01/07/25 01:07 metoprolol AdvReac Intermediate Jitters Verified 01/07/25 01:07 pioglitazone HCl (From Actos) AdvReac Mild Upset Verified 01/07/25 01:07 Stomach Family History Mother CAD (coronary artery [...] ROS ROS ED ROS Narrative Constitutional: Denies fevers, chills, headaches Eyes: Denies change in vision double vision blurry vision Cardiovascular: Denies chest pain Respiratory: Denies shortness of breath Abdomen: Denies abdominal pain nausea vomit diarrhea : Denies any urinary symptoms Neurological: Complains of generalized weakness with multiple falls as noted above denies any numbness or tingling Musculoskeletal: Denies back pain Skin: Complains of scattered bruising EXAM Physical Exam Narrative Exam Narrative: General: Patient lying in bed rest comfortably did not appear to be in acute distress Head: Atraumatic, normocephalic Eyes: PERRL bilaterally, EOMI blood, no conjunctival injection noted, no Oh sign no raccoon eyes Neck: Soft, supple, trachea midline Cardiovascular: Regular rate and rhythm no murmurs gallops rubs noted Respiratory: Clear to auscultation bilaterally Abdomen: Soft, nondistended, no tenderness palpation Musculoskeletal: All joints taken through full range of motion and all bony prominence palpated no pain elicited Extremities: +5/5 strength noted in the bilateral upper extremities, +5/5 strength noted in the right lower extremity and +4/5 strength noted in the left lower extremity Neurological: Patient follow commands and that he was at [facility] the year is 2024 Skin: Patient has some bruising noted underneath his eyes on exam as well as scattered ecchymosis across his abdomen and his arms Const Vital Signs: 01/07/25 01:05 01/07/25 01:05 01/07/25 02:14 Temperature 98.8 F Temperature Source Oral Pulse Rate 75 Respiratory Rate 18 Respiratory Effort Normal Non-Labored Normal Non-Labored Respiratory Depth Normal Respiratory Pattern Normal Normal Blood Pressure 143/96 H Blood Pressure Mean 111 Pulse Ox 91 Oxygen Delivery Method Room Air Room Air 01/07/25 02:19 01/07/25 03:00 Temperature 98.4 F 98.4 F Temperature Source Oral Oral Pulse Rate 82 96 Respiratory Rate 20 H 18 Respiratory Effort Respiratory Depth Respiratory Pattern Blood Pressure 142/77 H 157/87 H Blood Pressure Mean 98 110 Pulse Ox 97 98 Oxygen Delivery Method Room Air Room Air MDM MDM MDM Narrative Medical decision making narrative: Patient is a 89-year-old male who presented to the emergency department with concern for multiple falls within the last few days. On the differential diagnosis includes but not limited to electrolyte abnormality, UTI, intracranialhemorrhage, ACS, deconditioning. Once workup is obtained reviewed he will be reevaluated. Patient CBC was reviewed and showed no evidence leukocytosis white blood count was 7, he was 13, plate count of 226. Patient INR normal at 1.1, PT of 14.5. Patient sodium was 135, potassium 4.7, creatinine was elevated 1.72 however he has underlying chronic kidney disease glucose is noted to be 124. Patient aniongap normal at 14. Patient's AST and ALT were 22 and less than 5 respectively. Patient lipase normal at 20, thyroid studies pending. Patient urinalysis reviewed showed 500 leukocyte esterase negative nitrates 10-25 white cells with 1+ bacteria. Patient was given a gram of Rocephin at 2:26 AM. At this point time do believe the patient warrants admission to the hospital forhis multiple falls and generalized weakness in the setting of UTI. Will discusscase with hospitalist. Discussed case with hospitalist Dr. Valverde who will accept patient for admission. Updated the patient is agreeable with this plan all course concerns answered. Lab Data Labs: Laboratory Results - last 24 hr 01/07/25 01/07/25 01:20 01:25 WBC 7.0 RBC 3.96 L Hgb 13.0 Hct 38.6 L MCV 97.5 H MCH 32.8 H MCHC 33.7 RDW Std Deviation 50.0 H RDW Coeff of Perla 13.7 Plt Count 226 MPV 8.7 Immature Gran % (Auto) 0.900 Neut % (Auto) 79.1 H Lymph % (Auto) 10.0 L [place] % (Auto) 8.0 Eos % (Auto) 1.4 Baso % (Auto) 0.6 Absolute Neuts (auto) 5.5 Absolute Lymphs (auto) 0.70 L Nucleated RBC % 0 PT 14.5 INR 1.1 APTT 29.1 Sodium 135 Potassium 4.7 Chloride 95 L Carbon Dioxide 26.2 Anion Gap 14 BUN 23 H Creatinine 1.72 H Estim Creat Clear Calc 32.78 L Est GFR (MDRD) Non-Af 38 L BUN/Creatinine Ratio 13.3 Glucose 124 H Calcium 9.8 Total Bilirubin 0.55 AST 22 ALT < 5 Alkaline Phosphatase 53 Total Protein 6.7 Albumin 4.4 Globulin 2.3 Albumin/Globulin Ratio 1.9 Lipase 20 TSH 1.110 Free T4 1.20 Free T3 pg/dL 2.5 Urine Color Yellow Urine Clarity Clear Urine pH 6.0 Ur Specific [place] 1.015 Urine Protein 30 H Urine Glucose (UA) Normal Urine Ketones 5 H Urine Occult Blood Negative Urine Nitrite Negative Urine Bilirubin Negative Urine Urobilinogen Normal Ur Leukocyte Esterase 500 H Urine RBC 0 SEEN Urine WBC 10-25 SEEN Ur Squamous Epith Cells 0-5 SEEN Ur Transition Epith Cell 0-5 SEEN Calcium Oxalate Crystal RARE Urine Bacteria 1+ Urine Mucus 0 SEEN Radiography Diagnostic Testing: Clinical Impression(s) from Imaging Studies Brain CT 01/07/25 01:10 IMPRESSION: No acute intracranial findings Reading Location: [facility] 01/07/25 01:10 IMPRESSION: No acute cervical spine injury. Reading Location: [facility] Chest X-Ray 01/07/25 01:49 IMPRESSION: No acute chest findings. Reading Location: [place] [address] Discharge Plan Triage Chief Complaint: Weakness Other Complaint: Fall ED Provider: Derick Sorenson Dx/Rx/DC Orders Clinical Impression: Generalized weakness, Diabetes mellitus type 2 in obese, DANYELL (obstructive sleepapnea), Essential (primary) hypertension, CKD (chronic kidney disease) stage 3, GFR 30-59 ml/min, Hypothyroidism, Parkinson's disease, Multiple falls, Urinary tract infection Prescriptions: No Action PreserVision AREDS 7,160 unit- 113 [...] each AM, and 20 units each PM. furosemide 40 mg tablet 40 mg PO DAILY Qty: 90 3RF Rx Instructions: 40mg PO BID x 3-5 days followed by 40mg PO daily (12/23/2024) ranolazine 500 mg tablet extended release 12 hr 500 mg PO BID Qty: 180 0RF cholecalciferol (vitamin D3) 5,000 UNIT capsule 5,000 [...] 50 mcg PO DAILY Qty: 90 3RF escitalopram oxalate [...] TABLET BY MOUTH ONCE DAILY FOR REFLUX metformin 500 mg tablet 500 mg PO [...] Keron Maciel MD [Primary Care Provider] - Print Language: Brazilian Disposition Disposition: Acute Care Hospital [facility] What to do if you have Problems For any increased pain, shortness of breath, bleeding, nausea or vomiting, chestpain, or any unexpected problems, contact your Primary Care Provider. Call [facility] ([phone]) or report to the closest Emergency Room. Call 911 if necessary. 01/07/253 <Electronically signed by Derick Sorenson DO> Cosigner Signature (if applicable): CC: Dr. Keron Maciel MD ~ Signed [facility] Work Phone: Evaluation note* Diagnosis Onset Date Resolution Status B12 nutritional deficiency a cute 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 disease acut e Mild cognitive impairment ac [place] Parkinson's disease acute Polyneuropathy acute DANYELL (obstructive sleep apnea) chronic Obesity acute Polyneuropathy acute Diabetes mellitus chronic Essential (primary) hypertension chronic HLD (hyperlipidemia) chronic 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 disease acut e Mild cognitive impairment [place] Parkinson's disease acute Polyneuropathy acute B12 nutritional deficiency a cute 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 disease acut e Fungal skin infection acute Obesity acute Atherosclerotic heart diseas e of [place] coronary artery without angina pectoris chronic Body mass index (BMI) 40.0-44.9, adult chronic CKD (chronic kidney disease) stage 3, GFR 30-59 ml/min chronic Diabetes mellitus chronic Essential (primary) hypertension chronic HLD (hyperlipidemia) [facility] Work Phone: Evaluation note* Diagnosis Onset Date Resolution Status B12 nutritional deficiency a cute 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 disease acut e Mild cognitive impairment [place] Parkinson's disease acute Polyneuropathy acute DANYELL (obstructive sleep apnea) chronic Obesity acute Polyneuropathy acute Diabetes mellitus chronic Essential (primary) hypertension chronic HLD (hyperlipidemia) chronic 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 disease acut e Mild cognitive impairment [place] Parkinson's disease acute Polyneuropathy acute B12 nutritional deficiency a cute 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 disease acut e Fungal skin infection acute Obesity acute Atherosclerotic heart diseas e of [place] coronary artery without angina pectoris chronic Body mass index (BMI) 40.0-44.9, adult chronic CKD (chronic kidney disease) stage 3, GFR 30-59 ml/min chronic Diabetes mellitus chronic Essential (primary) hypertension chronic HLD (hyperlipidemia) chronic Atherosclerotic heart diseas e of [place] coronary artery without angina pectoris chronic Essential (primary) hypertension chronic History of coronary artery stent placement June [facility] Work Phone: Evaluation note* Diagnosis Onset Date Resolution Status 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 disease acut e Mild cognitive impairment [place] Parkinson's disease acute Polyneuropathy acute B12 nutritional deficiency a cute 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 disease acut e Fungal skin infection acute Obesity acute Atherosclerotic heart diseas e of [place] coronary artery without angina pectoris chronic Body mass index (BMI) 40.0-44.9, adult chronic CKD (chronic kidney disease) stage 3, GFR 30-59 ml/min chronic Diabetes mellitus chronic Essential (primary) hypertension chronic HLD (hyperlipidemia) chronic Atherosclerotic heart diseas e of [place] coronary artery without angina pectoris chronic Essential (primary) hypertension chronic History of coronary artery stent placement June [facility] Work Phone: Evaluation note* Diagnosis Onset [...] block chronic Atherosclerotic heart diseas e of [place] coronary artery without angina pectoris chronic Essential (primary) hypertension chronic History of coronary artery stent placement June chronic HLD (hyperlipidemia) [facility] Work Phone: Evaluation note* Diagnosis Onset Date Resolution Status Obesity acute DANYELL (obstructive sleep apnea) chronic Atherosclerotic heart diseas e of [place] coronary artery without angina pectoris chronic Essential (primary) hypertension chronic History of coronary artery stent placement June chronic HLD (hyperlipidemia) [facility] Work Phone: Evaluation note* Diagnosis Onset Date Resolution Status Obesity acute DANYELL (obstructive sleep apnea) chronic Atherosclerotic heart diseas e of [place] coronary artery without angina pectoris chronic Essential (primary) hypertension chronic History of coronary artery stent placement June chronic HLD (hyperlipidemia) chronic Cardiomyopathy acute Leg swelling acute Obesity acute Polyneuropathy acute 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 CKD (chronic kidney disease) stage 3, GFR 30-59 ml/min chronic Diabetes mellitus chronic Essential (primary) hypertension chronic History of coronary artery stent placement June chronic HLD (hyperlipidemia) chronic DANYELL (obstructive sleep apnea) chronic Parkinson's disease [facility] Work Phone: Evaluation note* Diagnosis Onychomycosis- Primary Dermatophytosis of nail Pain in toe of left foot Pain in limb Pain in toe of right foot Pain in limb Xerosis cutis Other specified disease of sebaceous glands Diabetic polyneuropathy associated with diabetes mellitus due to underlying condition ([facility]) Callus of heel Corns and callosities documented in this encounter [facility] Diagnosis Pain Generalized pain documented in this encounter [facility]* Diagnosis Onset Date Resolution Status Diabetes mellitus type 2 in obese acute Atherosclerotic heart diseas e of [place] coronary artery without angina pectoris chronic Body mass index (BMI) 40.0-44.9, adult chronic CKD (chronic kidney disease) stage 3, GFR 30-59 ml/min chronic Essential (primary) hypertension chronic HLD (hyperlipidemia) chronic DNAYELL (obstructive sleep apnea) chronic 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 Mild cognitive impairment ch ronic Parkinson's disease chronic Acute bronchitis acute B12 nutritional deficiency a cute Diabetes mellitus type 2 in obese acute Obesity acute Atherosclerotic heart diseas e of [place] coronary artery without angina pectoris chronic CKD (chronic kidney disease) stage 3, GFR 30-59 ml/min chronic Essential (primary) hypertension chronic HLD (hyperlipidemia) [facility] Work Phone: Evaluation note* Diagnosis Onychomycosis- Primary Dermatophytosis of nail Pain in toe of left foot Pain in limb Pain in toe of right foot Pain in limb Diabetic polyneuropathy associated with type 2 diabetes mellitus (HCC) [facility] Diagnosis Onychomycosis- Primary Dermatophytosis of nail Pain in toe of left foot Pain in limb Pain in toe of right foot Pain in limb Diabetic polyneuropathy associated with type 2 diabetes mellitus (HCC) documented [facility] this encounter [facility]* Diagnosis Onychomycosis- Primary Dermatophytosis of nail Pain in toe of left foot Pain in limb Pain in toe of right foot Pain in limb Diabetic polyneuropathy associated with type 2 diabetes mellitus (HCC) documented in this encounter [facility]* Diagnosis Onychomycosis- Primary Dermatophytosis of nail Pain in toe of left foot Pain in limb Pain in toe of right foot Pain in limb Diabetic polyneuropathy associated with type 2 diabetes mellitus (HCC) Venous insufficiency Unspecified venous (peripheral) insufficiency documented [facility] this encounter [facility]* Diagnosis Onychomycosis- Primary Dermatophytosis of nail Pain in toe of left foot Pain in limb Diabetic polyneuropathy associated with type 2 diabetes mellitus (HCC) Pain in toe of right foot Pain in limb documented in this encounter [facility] and [facility] Author Junior Valverde [facility] Note Date/Time January 07, 2025 3:22 am [facility] Medical Records Department [address] [place] [id number] History & Physical Exam 01/07/25315 MR#: [id number] Acct: [id number] Name: OLMAN SYED Rep #:[id number] : 1935 [id number] From: Junior Valverde MD PCP: Dr. Keron Maciel MD Status:ADM BRITTANY [place] [id number] HPI - General General Date of Admission: 01/07/25 Date of Service: 01/07/25 Chief Complaint: Generalized weakness, falling HPI Narrative OLMAN SYED, is a 89 M who presents to the emergency room with chief complaint of multiple falls and generalized weakness. Patient has significant past medical history of Parkinson's disease, TIA, vitamin B12 deficiency, CVA, benign prostate hypertrophy, hypothyroidism chronic chronic kidney disease, right bundle branch block, type 2 diabetes, hyperlipidemia. Patient states thatover the past 3 weeks she has had increased weakness and has multiple falls overthe past several days with noted older contusions on his face. Patient states that he is on a blood thinner but is unable to tell me which. Patient denies loss of consciousness with falling but he has fallen twice in the last few hours. Urinalysis was positive for urinary tract infection patient was given dose of Rocephin in the emergency room. ER physician felt admission was necessary for help with placement and risk of fall [facility] Medical History Frequent falls Shortness of breath at rest Pneumonia Parkinson's disease Vasovagal episode Obesity (BMI [...] flank pain Anemia Atherosclerotic heart disease of [place] coronary artery without angina pectoris 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 [...] Placard #1 ea 10/14/20 Unknown Rx vitamins A,C,W-pktq-qjhxwk 2,148 1 tab PO BID 12/17/20 Unknown History mcg-113 mg-45 mg-17.4 mg tablet (PreserVision AREDS) pen needle, diabetic 32 gauge x #100 ea 12/25/20 Unkno wn Rx 1/ Compression stockings (10-20) #2 ea 01/04/24 Unknown R x Left AFO #1 ea 01/04/24 Unknown Rx levothyroxine 50 mcg tablet 50 mcg PO DAILY thyroid #9 0 tabs 02/01/24 Unknown Rx escitalopram oxalate 10 mg tablet 10 mg PO DAILY #90 t abs 03/05/24 Unknown Rx pantoprazole 40 mg tablet,delayed See Rx Instructions .Route 03/05/24 Unknown Rx release .COMPLEX #90 tabs metformin 500 mg tablet 500 mg PO [...] pain 11/19/24 Unknown History 325 mg tablet furosemide 40 mg tablet 40 mg PO DAILY #90 TABLETS 0 12/23/24 Unknown Rx ranolazine 500 mg tablet,extended 500 mg PO BID #180 t abs 01/06/25 Unknown Rx release,12 hr Allergy/AdvReac Type Severity Reaction Status Date / Time lisinopril Allergy Mild Cough Verified 01/07/25 01:07 naproxen (From Aleve) Allergy HIVES Verified 01/07/25 01:07 losartan AdvReac Intermediate Jitters Verified 01/07/25 01:07 metoprolol AdvReac Intermediate Jitters Verified 01/07/25 01:07 pioglitazone HCl (From Actos) AdvReac Mild Upset Verified 01/07/25 01:07 Stomach Family History Mother CAD (coronary artery [...] you feel safe at home: Yes ROS Constitutional Constitutional: Reports weakness; Denies chills or fever(s) Eyes Eyes: Denies blurry vision ENT HEENT: Denies abnormal hearing Cardiovascular Cardiovascular: Denies chest pain Respiratory/Chest Respiratory/Chest: Denies shortness of breath at rest Gastrointestinal Gastrointestinal: Denies abdominal pain Genitourinary Genitourinary: Denies dysuria Musculoskeletal Musculoskeletal: Denies back pain Integumentary Integumentary: Reports dry skin Neurologic Neurologic: Reports lack of coordination Psychiatric Psychiatric: Denies anxiety Vital Signs Vital Signs Vital Signs: 01/07/25 01:05 01/07/25 01:05 01/07/25 02:14 Temperature 98.8 F Temperature Source Oral Pulse Rate 75 Respiratory Rate 18 Respiratory Effort Normal Non-Labored Normal Non-Labored Respiratory Depth Normal Respiratory Pattern Normal Normal Blood Pressure 143/96 H Blood Pressure Mean 111 Pulse Ox 91 Oxygen Delivery Method Room Air Room Air 01/07/25 02:19 01/07/25 03:00 Temperature 98.4 F 98.4 F Temperature Source Oral Oral Pulse Rate 82 96 Respiratory Rate 20 H 18 Respiratory Effort Respiratory Depth Respiratory Pattern Blood Pressure 142/77 H 157/87 H Blood Pressure Mean 98 110 Pulse Ox 97 98 Oxygen Delivery Method Room Air Room Air Weight Weight: 226 lb 6.636 oz Body Mass Index (BMI) 38.8 Physical Exam Const alert and oriented x3 General Appearance: cooperative and well developed HEENT normocephalic HEENT Narrative: Bruising on both cheeks noted Eyes PERRL Neck no lymphadenopathy Lymph Lymphatic: no lymphadenopathy noted Resp normal respiratory effort, normal air movement and clear to auscultation bilaterally Cardio S1 normal heart sound and S2 normal heart sound Rhythm: abnormal rhythm irregularly irregular GI normal to inspection, nondistended, normoactive bowel sounds Extremity normal capillary refill Skin General Skin Exam: no breakdown Neuro no focal motor deficits and no sensory deficits noted Psych thought process normal and affect normal Results Lab / Micro Data 01/07/25 01:25 01/07/25 01:25 Labs: Laboratory Results - last 24 hr 01/07/25 01:20: Urine Color Yellow, Urine Clarity Clear, Urine pH 6.0, Ur Specific [place] 1.015, Urine Protein 30 H, Urine Glucose (UA) Normal, Urine Ketones 5 H, Urine Occult Blood Negative, Urine Nitrite Negative, Urine Bilirubin Negative, Urine Urobilinogen Normal, Ur Leukocyte Esterase 500 H, Urine RBC 0 SEEN, Urine WBC 10-25 SEEN, Ur Squamous Epith Cells 0-5 SEEN, Ur Transition Epith Cell 0-5 SEEN, Calcium Oxalate Crystal RARE, Urine Bacteria 1+,Urine Mucus 0 SEEN 01/07/25 01:25: WBC 7.0, RBC 3.96 L, Hgb 13.0, Hct 38.6 L, MCV 97.5 H, MCH 32.8 H, MCHC 33.7, RDW Std Deviation 50.0 H, RDW Coeff of Perla 13.7, Plt Count 226, MPV 8.7, Immature Gran % (Auto) 0.900, Neut % (Auto) 79.1 H, Lymph % (Auto) 10.0L, [place] % (Auto) 8.0, Eos % (Auto) 1.4, Baso % (Auto) 0.6, Absolute Neuts (auto)5.5, Absolute Lymphs (auto) 0.70 L, Nucleated RBC % 0, PT 14.5, INR 1.1, APTT 29.1, Sodium 135, Potassium 4.7, Chloride 95 L, Carbon Dioxide 26.2, Anion Gap 14, BUN 23 H, Creatinine 1.72 H, Estim Creat Clear Calc 32.78 L, Est GFR (MDRD) Non-Af 38 L, BUN/Creatinine Ratio 13.3, Glucose 124 H, Calcium 9.8, Total Bilirubin 0.55, AST 22, ALT < 5, Alkaline Phosphatase 53, Total Protein 6.7, Albumin 4.4, Globulin 2.3, Albumin/Globulin Ratio 1.9, Lipase 20, TSH 1.110, Free T4 1.20, Free T3 pg/dL 2.5 Imaging Radiology Impression Brain CT 01/07/25 01:10 IMPRESSION: No acute intracranial findings Reading Location: [facility] 01/07/25 01:10 IMPRESSION: No acute cervical spine injury. Reading Location: [facility] Chest X-Ray 01/07/25 01:49 IMPRESSION: No acute chest findings. Reading Location: [facility] Assessment & Plan Assessment/Plan (1) Urinary tract infection: (2) Multiple falls: (3) Generalized weakness: (4) Facial contusion: (5) Parkinson's disease: QUALIFIERS: Dyskinesia presence: unspecified whether dyskinesia Fluctuating manifestations: unspecified whether manifestations fluctuate Qualified Code(s): G20.A1 - Parkinson's disease without dyskinesia, without mention of fluctuations (6) Mild cognitive impairment: PLAN: Plan 1 generalized weakness with frequent falls?admit patient to general medical floor, consult case management for discharge planning and placement 2. Urinary tract infection?continue Rocephin 1 g IV every 24 hours, repeat CBC BMP in the morning 3. Parkinson's disease?continue routine home medications 4. Mild cognitive impairment?to be aware as this may be an additional diagnosisthat indicates patient needs long-term care 5. DVT prophylaxis?SCDs Charges/Coding Visit Charges Inpatient E&M: 15453 Init Hosp L2 01/07/25 0322 <Electronically signed by Junior Valverde MD> Cosigner Signature (if applicable): CC: Dr. Keron Maciel MD; Dr. Junior Valverde MD~ Signed [facility] Work Phone: Hospital Discharge instructions Additional Instructions Your workup today [...] please return to the ER for repeat evaluation.[facility] Work Phone: Hospital Discharge instructionsAdditional Instructions Stop taking the antibiotic azithromycin that you are currently on and take the doxycycline that was sent to your pharmacy as prescribed. Return with worsening symptoms or other concerns. Your CT of your chest did not show any focal consolidations. Your blood work did not show any acute abnormalities.[facility] Work Phone: Hospital Discharge instructionsAdditional Instructions Use ice to the bridge of your nose. This will help with swelling. This will also help with any bleeding from the nose.[facility] Work Phone: Reason for referral (narrative)No reason for referral information availableW[facility] Work Phone: Reason for visit Narrative* Diagnostic Procedure Only (Routine) - Authorized Specialty Diagnoses / Procedures Referred By Contac t Referred To Contact XR IMAGING Diagnoses Pain Procedures XR FOOT GENERAL 3V AP/LAT/OBL BILATERAL RADEX FOOT COMPLETE MINIMUM [address] [place] [address] [place] [address] Referral ID Status Reason Start Date Expiration Date Visits Requested Visits Authorized [id number] Authorized Auto-Generat ed Referral 07/12/2023 08/10/2024 1 1 [facility] Chief Complaint and Reason for Visit [...] skin infection Obesity Atherosclerotic heart disease of [place] coronary artery without angina pectoris Body mass [...] skin infection Obesity Atherosclerotic heart disease of [place] coronary artery without angina pectoris Body mass index (BMI) 40.0-44.9, adult CKD (chronic kidney disease) stage 3, GFR 30-59 ml/min Diabetes mellitus Essential (primary) hypertension HLD (hyperlipidemia) Atherosclerotic heart disease of [place] coronary artery without angina pectoris Essential (primary) [...] skin infection Obesity Atherosclerotic heart disease of [place] coronary artery without angina pectoris Body mass index (BMI) 40.0-44.9, adult CKD (chronic kidney disease) stage 3, GFR 30-59 ml/min Diabetes mellitus Essential (primary) hypertension HLD (hyperlipidemia) Atherosclerotic heart disease of [place] coronary artery without angina pectoris Essential (primary) hypertension History of coronary artery stent placement Chief Complaint 3 M FU 6 M FU 9 M FU SOB ASHD HTN FALL WITH HEAD INJURY Reason for Visit 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 dise ase Mild cognitive impairment Parkinson's disease Polyneuropathy B12 nutritional deficiency 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 disease Fungal skin infection Obesity Atherosclerotic heart disease of [place] coronary artery without angina pectoris Body mass index (BMI) 40.0-44.9, adult CKD (chronic kidney disease) stage 3, GFR 30-59 ml/min Diabetes mellitus Essential (primary) hypertension HLD (hyperlipidemia) Atherosclerotic heart disease of [place] coronary artery without angina pectoris Essential (primary) hypertension History of coronary artery stent placement Chief Complaint 9 M FU SOB ASHD HTN FALL WITH HEAD INJURY STITCHES OUT 3 M FU E-ORDER Amb Documentation Reason for Visit Atherosclerotic hear t disease of [place] coronary artery without angina pectoris Essential (primary) [...] anterior fascicular block Atherosclerotic heart disease of [place] coronary artery without angina pectoris Essential (primary) hypertension History of coronary artery stent placement HLD (hyperlipidemia) Chief Complaint 1 Y FU 6 M FU Reason for Visit Obesity DANYELL (obstructive sleep apnea) Atherosclerotic heart disease of [place] coronary artery without angina pectoris Essential (primary) hypertension History of coronary artery stent placement HLD (hyperlipidemia) Chief Complaint 1 Y FU 6 M FU 8 M FU E-ORDER Reason for Visit Obesity DANYELL (obstructive sleep apnea) Atherosclerotic heart disease of [place] coronary artery without angina pectoris Essential (primary) [...] for Visit Atherosclerotic hear t disease of [place] coronary artery without angina pectoris Essential (primary) [...] Parkinson's disease Diabetes mellitus Chief Complaint sob [facility] ER FU 6 M FU Cough 6 M FU E ORDERS Reason for Visit Diabetes mellitus ty pe 2 in obese Atherosclerotic heart disease of [place] coronary artery without angina pectoris Body mass index (BMI) 40.0-44.9, adult CKD (chronic kidney disease) stage 3, GFR 30-59 ml/min Essential (primary) hypertension HLD (hyperlipidemia) DANYELL (obstructive sleep apnea) 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 disease Mild cognitive impairment Parkinson's disease Acute bronchitis B12 nutritional deficiency Diabetes mellitus type 2 in obese Obesity Atherosclerotic heart disease of [place] coronary artery without angina pectoris CKD (chronic kidney disease) stage 3, GFR 30-59 ml/min Essential (primary) hypertension HLD (hyperlipidemia) Chief Complaint Admit Date 4 M FU August 01, 2024 1:54pm sob November 19, 2024 10:47 pm [facility] ER FU November 25, 2024 11:01 am dyspnea on exertion November 25, 2024 12:34 pm Reason for Visit Admit Date Left foot drop August 01, 2024 1:54pm Parkinson's disease August 01, 2024 1:54pm Mild cognitive impairment August 01, 2024 1:54pm Orthostatic hypotension August 01, 2 025 1:54pm Reason for Visit Admit Date Left foot drop August 01, 2024 1:54pm Parkinson's disease August 01, 2024 1:54pm Mild cognitive impairment August 01, 2024 1:54pm Orthostatic hypotension August 01, 2 025 1:54pm Diabetes mellitus type 2, insulin depend ent November 25, 2024 11:01am Generalized weakness November 25, 2024 11:0 1am Atherosclerotic heart diseas e of [place] coronary artery without angina pectoris November 25, [...] Date Diabetes mellitus type 2 in obese 2024 2:30pm Parkinson's disease July 25, 2024 2 :30pm Polyneuropathy July 25, 2024 2 :30pm Vasovagal episode July 25, 2024 2 :30pm [id number] kidney injury July 25, 2024 2:30pm Atherosclerotic heart diseas e of [place] coronary artery without angina pectoris July 25, [...] August 01, 2024 1:54pm Orthostatic hypotension August 01, 2 025 1:54pm Chief Complaint Admit Date sob November 19, 2024 10:47 pm [facility] ER FU November 25, 2024 11:01 am dyspnea on exertion November 25, 2024 12:34 pm 2 WK FU December 09, 2024 1:52 pm Reason for Visit Admit Date Atherosclerotic heart diseas e of [place] coronary artery without angina pectoris November 25, 2024 11:01am CKD (chronic kidney disease) stage 3, GF R 30-59 ml/min November 25, 2024 11:01am Essential (primary) hypertension November 11:01am Diabetes mellitus type 2, insulin depend ent November 25, 2024 11:01am Generalized weakness November 25, 2024 11:0 1am Chief Complaint Admit Date sob November 19, 2024 10:47 pm [facility] ER FU November 25, 2024 11:01 am dyspnea on exertion November 25, 2024 12:34 pm 2 WK FU December 09, 2024 1:52 pm EORDER December 09, 2024 3:24 pm Reason for Visit Admit Date Atherosclerotic heart diseas e of [place] coronary artery without angina pectoris November 25, [...] 1:52 pm Atherosclerotic heart diseas e of [place] coronary artery without angina pectoris December 09, 2024 1:52pm CKD (chronic kidney disease) stage 3, GF R 30-59 ml/min December 09, 2024 1:52pm Essential (primary) hypertension December 092024 1:52pm HLD (hyperlipidemia) December 09, 2024 1:5 2pm DANYELL (obstructive sleep apnea) December 09, 2024 1:52pm Chief Complaint Admit Date sob November 19, 2024 10:47 pm [facility] ER FU November 25, 2024 11:01 am dyspnea on exertion November 25, 2024 12:34 pm 2 WK FU December 09, 2024 1:52 pm EORDER December 09, 2024 3:24 pm sob December 21, 2024 3:35p m Chief Complaint Admit Date sob November 19, 2024 10:47 pm [facility] ER FU November 25, 2024 11:01 am dyspnea on exertion November 25, 2024 12:34 pm 2 WK FU December 09, 2024 1:52 pm EORDER December 09, 2024 3:24 pm sob December 21, 2024 3:35p m Increased Dyspnea like before stent. L .L. December 23, 2024 1:32pm Reason for Visit Admit Date Atherosclerotic heart diseas e of [place] coronary artery without angina pectoris November 25, [...] 1:52 pm Atherosclerotic heart diseas e of [place] coronary artery without angina pectoris December 09, [...] Date sob November 19, 2024 10:47 pm [facility] ER FU November 25, 2024 11:01 am dyspnea on exertion November 25, 2024 12:34 pm 2 WK FU December 09, 2024 1:52 pm EORDER December 09, 2024 3:24 pm sob December 21, 2024 3:35p m Increased Dyspnea like before stent. L .L. December 23, 2024 1:32pm [facility] ER FU December 30, 2024 11:1 0am Reason for Visit Admit Date Atherosclerotic heart diseas e of [place] coronary artery without angina pectoris November 25, [...] 1:52 pm Atherosclerotic heart diseas e of [place] coronary artery without angina pectoris December 09, [...] Date sob November 19, 2024 10:47 pm [facility] ER FU November 25, 2024 11:01 am dyspnea on exertion November 25, 2024 12:34 pm 2 WK FU December 09, 2024 1:52 pm EORDER December 09, 2024 3:24 pm sob December 21, 2024 3:35p m Increased Dyspnea like before stent. L .L. December 23, 2024 1:32pm [facility] ER FU December 30, 2024 11:1 0am fall December 31, 2024 2:25 pm Reason for Visit Admit Date Atherosclerotic heart diseas e of [place] coronary artery without angina pectoris November 25, [...] 1:52 pm Atherosclerotic heart diseas e of [place] coronary artery without angina pectoris December 09, [...] Shortness of breath at rest December 30, 025 11:10am CKD (chronic kidney disease) stage 3, GF R 30-59 ml/min December 30, 2024 11:10am Obesity December 30, 2024 11:1 0am Chief Complaint Admit Date sob November 19, 2024 10:47 pm [facility] ER FU November 25, 2024 11:01 am dyspnea on exertion November 25, 2024 12:34 pm 2 WK FU December 09, 2024 1:52 pm EORDER December 09, 2024 3:24 pm sob December 21, 2024 3:35p m Increased Dyspnea like before stent. L .L. December 23, 2024 1:32pm [facility] ER FU December 30, 2024 11:1 0am fall December 31, 2024 2:25 pm DYSPNEA ON EXERTION January 02, 2025 1:46 pm [facility] ER FU January 06, 2025 1:55 pm Chief Complaint Admit Date sob November 19, 2024 10:47 pm [facility] ER FU November 25, 2024 11:01 am dyspnea on exertion November 25, 2024 12:34 pm 2 WK FU December 09, 2024 1:52 pm EORDER December 09, 2024 3:24 pm sob December 21, 2024 3:35p m Increased Dyspnea like before stent. L .L. December 23, 2024 1:32pm [facility] ER FU December 30, 2024 11:1 0am fall December 31, 2024 2:25 pm DYSPNEA ON EXERTION January 02, 2025 1:46 pm [facility] ER FU January 06, 2025 1:55 pm GENERALIZED WEAKNESS, MULTIPLE FALLS Raul 2024 3:19am Reason for Visit Admit Date Atherosclerotic heart diseas e of [place] coronary artery without angina pectoris November 25, [...] 1:52 pm Atherosclerotic heart diseas e of [place] coronary artery without angina pectoris December 09, [...] 11:10am Obesity December 30, 2024 11:1 0am Facial contusion January 06, 2025 1:55 pm Fall January 06, 2025 1:55 pm Frequent falls January 06, 2025 1:55 pm Parkinson's disease January 06, 2025 1:55 pm Pneumonia January 06, 2025 1:55 pm Polyneuropathy January 06, 2025 1:55 pm Atherosclerotic heart diseas e of [place] coronary artery without angina pectoris January 06, 2025 1:55pm 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 disease January 06, 2025 1:55pm Essential (primary) hypertension January 062024 1:55pm Diabetes mellitus type 2 in obese December 182024 3:19am Facial contusion January 07, 2025 3:19 am Generalized weakness January 07, 2025 3:1 9am Hypothyroidism January 07, 2025 3:19 am Multiple falls January 07, 2025 3:19 am Parkinson's disease January 07, 2025 3:19 am Urinary tract infection January 07, 2025 3:19am CKD (chronic kidney disease) stage 3, GF R 30-59 ml/min January 07, 2025 3:19am Essential (primary) hypertension January 072024 3:19am Mild cognitive impairment January 07 3:19am DANYELL (obstructive sleep apnea) January 07, 2025 3:19am Family History Relationship Condition Age at Onset [...] Will Yes July 13 11:49am Power of Drupal Php Developer Yes July 13, 2021 11:49am Advance Directive Response Recorded Date/ Time Advance Directives No October 28 8:35am Living Will No October 28, 2021 8 :35am Power of Drupal Php Developer No October 28, 2021 8:35am Advance Directive Response Recorded Date/ Time Advance Directives Yes October 29 7:13am Living Will Yes October 29, 2021 7 :13am Power of Drupal Php Developer Yes October 29, 2021 7:13am Advance Directive Response Recorded Date/ Time Advance Directives on File Yes October 172021 7:13am Name of Medical Power of Drupal Php Developer Iris astogra- October 29, 2021 7:13am Name of Medical Power of Drupal Php Developer TERRENCE ASTORGA February 01, 2022 1:26pm Advance Directives Yes October 29 7:13am Living Will Yes February 01 1:26pm Power of Drupal Php Developer Yes February 01 022 1:26pm Advance Directive Response Recorded Date/ Time Name of Medical Power of Drupal Php Developer TERRENCE ASTORGA February 01, 2022 1:26pm Advance Directives Yes October 29 7:13am Living Will Yes February 01 1:26pm Power of Drupal Php Developer Yes February 01 022 1:26pm Advance Directive Response Recorded Date/ Time Advance Directives Yes October 29 7:13am Living Will Yes February 01 1:26pm Power of Drupal Php Developer Yes February 01 022 1:26pm Documents on File Type Date Recorded Patient Metal Drawer Expl anation Advance Directive(s) 10/30/2008 10:54 PM Documents on File Type Date Recorded Patient Metal Drawer Expl anation Advance Directive(s) 10/30/2008 10:54 PM Advance Directive Response Recorded Date/ Time Advance Directives Yes January 23, 2 023 2:13pm Living Will No July 16 4:09pm Power of Drupal Php Developer No July 16, 2023 4:09pm Advance Directive Response Recorded Date/ Time Living Will Yes December 20, 2023 2 :43pm Do you have a Healthcare Power of Drupal Php Developer? Yes December 20, 2023 2:43pm Do you have a Healthcare Power of Drupal Php Developer? Yes November 19, 2024 10:51pm Advance Directives Yes December 19 2:43pm Advance Directive Response Recorded Date/ Time Living Will Yes December 20, 2023 2 :43pm Do you have a Healthcare Pow er of Drupal Php Developer? Yes December 20, 2023 2:43pm Do you have a Healthcare Pow er of Drupal Php Developer? Yes November 19, 2024 10:51pm Do you have a Healthcare Pow er of Drupal Php Developer? Yes December 21, 2024 4:06pm Name of Medical Power of Drupal Php Developer Iris Pickard kaity December 21, 2024 4:06pm Advance Directives Yes December 19 2:43pm Advance Directive Response Recorded Date/ Time Living Will Yes December 20, 2023 2 :43pm Do you have a Healthcare Pow er of Drupal Php Developer? Yes December 20, 2023 2:43pm Do you have a Healthcare Pow er of Drupal Php Developer? Yes December 31, 2024 2:33pm Do you have a Healthcare Pow er of Drupal Php Developer? Yes November 19, 2024 10:51pm Do you have a Healthcare Pow er of Drupal Php Developer? Yes December 21, 2024 4:06pm Name of Medical Power of Drupal Php Developer Iris Pilarjanetekta kaity December 21, 2024 4:06pm Advance Directives Yes December 19 2:43pm Advance Directive Response Recorded Date/ Time Living Will Yes December 20, 2023 2 :43pm Do you have a Healthcare Pow er of Drupal Php Developer? Yes December 20, 2023 2:43pm Do you have a Healthcare Pow er of Drupal Php Developer? Yes December 31, 2024 2:33pm Do you have a Healthcare Pow er of Drupal Php Developer? Yes January 07, 2025 1:05am Do you have a Healthcare Pow er of Drupal Php Developer? Yes November 19, 2024 10:51pm Do you have a Healthcare Pow er of Drupal Php Developer? Yes December 21, 2024 4:06pm Name of Medical Power of Drupal Php Developer Iris Pickard kaity December 21, 2024 4:06pm Advance Directives Yes [...] Provider, Referri ng Provider Active Lela Sherman HEALTH COMMISSIONER, HEALTH COMMISSIONER-C Attending Provider Active Team Status: Inactive Member [...] Padgett MD Attending Provider, Referring Provider Active Parking Enforcement Manager Relationship Specialty Start Date End Date Keron Maciel MD [address] [place] [address] PCP - General Internal Medicine 06/09/21 Parking Enforcement Manager Relationship Specialty Start Date End Date Keron Maciel MD [address] [place] [address] PCP - General Internal Medicine 06/09/21 Team Status: Inactive Member Role Status Dates Dr. Keron Maciel MD Primary Care Provider, Referri Provider Active Bhanu PICKARD, PA Attending Provider Active Team Status: Inactive Member Role Status Dates Dr. Keron Maciel MD Primary Care Provider Active Dr. Saurabh Porter DO Attending Provider, [place] Active Parking Enforcement Manager Relationship Specialty Start Date End Date Keron Maciel MD [address] [place] [address] PCP - General Internal Medicine 06/09/21 Parking Enforcement Manager Relationship Specialty Start Date End Date Keron Maciel MD [address] [place] [address] PCP - General Internal Medicine 06/09/21 Parking Enforcement Manager Relationship Specialty Start Date End Date Keron Maciel MD [address] [place] [address] PCP - General Internal Medicine 06/09/21 Parking Enforcement Manager Relationship Specialty Start Date End Date Keron Maciel MD [address] [place] [address] PCP - General Internal Medicine 06/09/21 Team [...] 2024 End: December 23, 2024 Zhen Simons HEALTH COMMISSIONER, HEALTH COMMISSIONER-C Attending Provider Active S tart: December 23, [...] January 06, 2025 End: January 06, 2025 Team Status: Active Member Role/Relationship Status Dates Dr. Keron Maciel MD Primary Care Provider Active Start: January 07, 2025 Dr. Derick Sorenson DO Emergency Provider Active Start: January 07, 2025 Dr. Junior Valverde MD Admit Provider Active Star t: January 07, 2025 Dr. Junior Valverde MD Attending Provider Active Start: January 07, 2025 Dr. Junior Valverde MD Other Provider Active Star t: January 07, 2025 Source Comments (unrecognize d section and content) In the event this informatio n is protected by the Federal Confidentiality of Alcohol and Drug Abuse Patient Records regulations: The Federal rules restrict any use of the information to criminally investigate or prosecute any alcohol or drug abuse patient.[facility] the event this information is protected by the Federal Confidentiality of Alcohol and Drug Abuse Patient Records regulations: The Federal rules restrict any use of the information to criminally investigate or prosecute any alcohol or drug abuse patient.[facility] the event this information is protected by the Federal Confidentiality of Alcohol and Drug Abuse Patient Records regulations: The Federal rules restrict any use of the information to criminally investigate or prosecute any alcohol or drug abuse patient.[facility] the event this information is protected by the Federal Confidentiality of Alcohol and Drug Abuse Patient Records regulations: The Federal rules restrict any use of the information to criminally investigate or prosecute any alcohol or drug abuse patient.[facility] the event this information is protected by the Federal Confidentiality of Alcohol and Drug Abuse Patient Records regulations: The Federal rules restrict any use of the information to criminally investigate or prosecute any alcohol or drug abuse patient.[facility] the event this information is protected by the Federal Confidentiality of Alcohol and Drug Abuse Patient Records regulations: The Federal rules restrict any use of the information to criminally investigate or prosecute any alcohol or drug abuse patient.[facility] the event this information is protected by the Federal Confidentiality of Alcohol and Drug Abuse Patient Records regulations: The Federal rules restrict any use of the information to criminally investigate or prosecute any alcohol or drug abuse patient.[facility] Reason for Visit (unrecogniz ed section and content) Reason Comments Established Patient Diabetic Foot Care Reason Comments Established Patient Follow Up Diabetic Foot Check Reason Comments Established Patient Follow Up Diabetic Foot Care (unrecognized sect ion and content) No Status Records FoundNo Status Records Found INFORMATION SOURCE (unrecogn ized section and content) DATE CREATED AUTHOR 12/15/2024 [facility] DATE CREATED AUTHOR AUTHOR'S ANABEL ATION 01/04/2025 [facility] [place] FOR RECORDS PERTAINING TO PATIENTS WHO ARE [...] BE BASED ON THE PRIMARY CLINICAL RECORDS. [facility] [employer] [facility]. provides no warranty or guarantee of the accuracy or completeness of information in this document.
--- OUTSIDE RECORDS SUMMARY | 2025-01-07 04:18 | XMS RPT_ITS | CCD ---
Author Organization [facility] Care Team Providers Care Veneer Sawyer Name Role Phone Saurabh Benites MD Unavailable Dr. Keron Maciel Primary Care Provider Dr. Keron Maciel Referring Provider [phone] Alo CHILD CARE EDUCATION COORDINATOR, CHILD CARE EDUCATION COORDINATOR-C Glory Attending Provider Dr. Soham Jones III Referring Provider Dr. Americo Nazario Attending Provider [phone] Austin Mora Attending Provider Dr. Keron Maciel Attending Provider Dr. David Ashton Attending Provider Dr. Keron Maciel Primary Care Provider Dr. Keron Maciel Referring Provider [phone] Alo CHILD CARE EDUCATION COORDINATOR, CHILD CARE EDUCATION COORDINATOR-C Glory Attending Provider Dr. Keron Maciel Attending Provider [phone] Keron Maciel Primary Care Provider Dr. Keron Maciel Referring Provider [phone] Hood CHILD CARE EDUCATION COORDINATOR, CHILD CARE EDUCATION COORDINATOR-C Casey Attending Provider [phone] Dr. Keron Maciel Attending Provider [phone] Erick Sung Attending Provider Unavailable Dr. Keron Maciel Primary Care Provider Dr. Keron Maciel Referring Provider [phone] Olga PICKARD, NEERAJ Reza Attending Provider Dr. Keron Maciel Primary Care Provider Dr. Keron Maciel Referring Provider Whit CHILD CARE EDUCATION COORDINATOR, DENISE Vogel Attending Provider Olga PICKARD, PA [...] BROOKE, Dr. Sepulveda Emergency Provider [phone] [facility] CHILD CARE EDUCATION COORDINATOR-CZhen Attending Provider Janell GUTIÉRREZ, Dr. Salazar Primary Care Provider [phone] Dr. Helio Corrales DO Attending Provider Savanna BROOKE, Dr. Cadet Emergency Provider Janell GUTIÉRREZ, Dr. Salazar Attending Provider Janell GUTIÉRREZ, Dr. Salazar Referring Provider Dr. Derick Sorenson DO Attending Provider Delta BROOKE, Dr. Sepulveda Emergency Provider [phone] [facility] CHILD CARE EDUCATION COORDINATOR-CZhen Attending Provider Dr. Tevin Tran DO Emergency [...] Attending Unavailable Janell, Keron Primary Care Unavailable Hooppole, Joan Referring Unavailable Daphne, Joan Attending Unavailable [...] Provider Nicolle GUTIÉRREZ, Dr. Pacheco Admit Provider Nicolle GUTIÉRREZ, Dr. Pacheco Attending Provider [phone] Allergies Allergy Classification Reported Allergen(s) Allergy Type Date of Onset Reaction(s) Facility Thiazolidinediones (glitazones) (1 source) pioglitazone Drug Allergy 7 [facility] (4 sources) pioglitazone Drug Allergy 1 Rash & passes out, Rash [facility] Work Phone: (20 sources) Lisinopril Drug Allergy 2 Cough [facility] (20 sources) Los[facility] Metoprolol Drug Allergy 2 [facility] (20 sources) pioglitazone; Translations: [PIOGLITAZONE HCL] Drug Allergy 7 Upset [place] [facility] (11 sources) Naproxen Drug Allergy 5 HIVES [facility] (1 source) Lisinopril Drug Allergy 5 [facility] (1 source) Losartan Drug Allergy 5 [facility] (1 source) Metoprolol Drug Allergy 5 [facility] (1 source) Naproxen Drug Allergy 5 [facility] Medications Current Medications Medication Drug [...] tablet by mouth daily as needed HYDROCODONE-ACETAMINOPHEN [id number] Juliann Levine CUSTOMER COUNTER ASSOCIATE [id number] 200 actuat albuterol 0.09 mg/actuat metered dose [...] AERS As needed - 90mcg/inh ALBUTEROL SULFATE [id number] David Ashton MD Comment on above: Inhale [...] Start: 12-17-2020 take 2 tablets by mo [facility] once daily at dinner Vitamins A,C,C-Ooqr-Qnqvdp (Preservision Areds) 7,160 unit- 113 mg-100 unit tablet Active 2 TABLET PO DAILY December 17, 2020 12:00am administer with AM and PM meals aspirin 81 mg delayed release oral tablet (20 sources) Nonsteroidal Anti-inflammatory Drug Start: 07-16-2015 Start: 07-16-2015 [facility] ASPIRIN 81 MG TABS One tablet by mouth daily ASPIRIN [id number] Audelia Espinoza PA-C Start: 10-28-2010 End: 06-16-2015 take 1 tablet by mouth once daily ASPIRIN 81 MG TABS One tablet by mouth daily ASPIRIN [id number] David Ashton MD Comment on above: Take [...] tablet by mouth twice daily FERROUS SULFATE [id number] Juliann Levine LPN finasteride 5 mg oral [...] on above: Take 1 capsule by mo [facility] once daily. Left AFO [...] by mouth three times daily METFORMIN HCL [id number] David Ashton MD Comment on above: Take 2 tablets by mo [facility] twice daily with meals. insulin isophane, human [...] in the pm INSULIN ISOPHANE & REGULAR [id number] David Ashton MD Start: 05-29-2014 take 35 [IU] by subc utaneous injection in the morning, then take 25 [IU] by subcutaneous injection in the evening NOVOLIN 70/30 (70-30) 100 UNIT/ML SUSP 35 units sq in the am and 25 units sq in the pm INSULIN ISOPHANE & REGULAR [id number] David Ashton MD Comment on above: 48 [...] days, then 1 for 3 days. PREDNISONE [id number] Lela Sherman CNP Comment on above: Take [...] on above: Take 1 capsule by mo [facility] daily at bedtime. traZODone hydrochloride 50 mg [...] 11-19-2020 End: 01-18-2021 Arm Brace (Wrist Brace) [facility] Discontinued 0 .ROUTE .MEDSUPPLY 1 November 19, 2020 12:00am January 18, 2021 1:38pm As directed atorvastatin 20 mg oral tablet (4 sources) HMG-CoA Reductase Inhibitor Start: 06-21-2013 take 1 tablet by mouth once daily LIPITOR 20 MG TABS One tablet by mouth daily ATORVASTATIN CALCIUM [id number] Ania Perez Fatimah RN Start: 10-28-2010 take 1 tablet by britt th once daily LIPITOR 10 MG TABS One tablet by mouth daily ATORVASTATIN CALCIUM [id number] Paula Bazzi azithromycin 500 mg oral tab let (20 sources) Macrolide Antimicrobial Start: 12-10-2024 End: 12-30-2024 Start: 11-25-2024 End: 12-09-2024 Start: 12-07-2016 End: 01-20-2017 AZITHROMYCIN 250 MG TABS 2 t ablets by mouth today and then 1 tablet daily for the next 4 days AZITHROMYCIN [id number] Audelia Espinoza PA-C benzonatate 100 mg oral [...] Take 2 puffs twice daily BUDESONIDE-FORMOTEROL FUMARATE [id number] Americo Nazario DO cefuroxime 500 mg oral [...] tsp q12h as needed HYDROCOD POLST-CHLORPHEN POLST [id number] YOSEF BowmanC GLUCOSAMINE-CHONDROITI N CAPS (4 sources) Start: 02-25-2011 take 2 tablets by mouth once daily GLUCOSAMINE-CHONDROI TIN CAPS Two tablets by mouth daily GLUCOSAMINE-CHONDROI TIN CAPS [id number] Paula Bazzi Start: 02-25-2011 End: 06-23-2011 take 2 tablets by mouth once daily GLUCOSAMINE-CHONDROITIN CAPS Two tablets by mouth daily GLUCOSAMINE-CHONDROITIN CAPS [id number] Estrella August RN citalopram 10 mg oral [...] 40 mg/ml oral suspension (12 sources) Uncompetitive G-wduacl-H-aspartate Receptor Antagonist, Sigma-1 Agonist Start: 08-10-2023 End: [...] docusate sodium 50 mg / [facility] 8.6 mg oral tablet (20 sources) Start: [...] CAPS One tablet by mouth daily DUTASTERIDE [id number] David Ashton MD fludrocortisone acetate 0.1 mg [...] Take 2 puffs every 12 hours FLUTICASONE-SALMETEROL [id number] Americo Nazario DO Start: 02-08-2016 End: 03-21-2016 ADVAIR HFA 230-21 MCG/ACT AE RO Take 1 puff twice daily FLUTICASONE-SALMETEROL [id number] Americo Nazario DO Start: 02-08-2016 End: 02-08-2016 ADVAIR HFA 230-21 MCG/ACT AE RO 2 puffs twice daily FLUTICASONE-SALMETEROL [id number] Americoyarelis Nazario DO Start: 10-15-2015 End: 02-08-2016 ADVAIR DISKUS 100-50 MCG/DOS E AEPB Take as Directed FLUTICASONE-SALMETEROL [id number] Americo Nazario DO furosemide 40 mg oral tablet (20 sources) Loop Diuretic Start: 08-31-2015 End: 12-23-2024 Start: 08-31-2015 FUROSEMIDE 40 MG TABS One tablet by mouth twice daily X 3 days then once daily FUROSEMIDE [id number] Estrella August RN Start: 08-06-2015 End: 08-27-2015 take 1 tablet by mouth once daily LASIX 40 MG TABS One tablet by mouth daily FUROSEMIDE [id number] Audelia Espinoza PA-C Start: 02-25-2011 End: 06-21-2012 take 1 tablet by mouth once daily LASIX 40 MG TABS One tablet by mouth daily FUROSEMIDE [id number] David Ashton MD Comment on above: Take 40 mg by mouth once daily. glimepiride 2 mg oral tablet (2 sources) Sulfonylurea Start: 06-25-19 14 take 1 tablet by mouth twice daily GLIMEPIRIDE 2 MG TABS One tablet by mouth twice daily GLIMEPIRIDE [id number] David Ashton MD glipiZIDE 5 mg oral tablet (4 sources) Sulfonylurea Start: 06-25-19 14 End: 06-16-20 15 take 1 tablet by mouth once daily GLIPIZIDE 5 MG TABS One tablet by mouth daily GLIPIZIDE [id number] Audelia Espinoza PA-C Handi cap Placard (20 [...] UNIT/ML SOLN Take as directed INSULIN DETEMIR [id number] David Ashton MD insulin glargine 100 unt/ml injectable solution (4 sources) Insulin Analogue Start: 10-28-2010 End: 06-21-2012 take 30 [IU] by subcutaneous injection at bedtime LANTUS 100 UNIT/ML SOLN 30 units SQ at bedtime INSULIN GLARGINE [id number] Paula Bazzi 3 ml insulin lispro 100 [...] SQ per sliding scale INSULIN LISPRO (HUMAN) [id number] Paula Bazzi INSULIN GLULISINE SOLN (6 sources) Insulin Analogue Start: 06-21-2012 APIDRA SOLN P er sliding scale twice daily if blood glucose is greater than 140 INSULIN GLULISINE SOLN [id number] David Ashton MD Start: 06-21-2012 End: 06-25-2013 APIDRA SOLN Per sliding scal e twice daily if blood glucose is greater than 140 INSULIN GLULISINE SOLN [id number] David Ashton MD Start: 02-25-2011 APIDRA SOLN Pe r sliding scale INSULIN GLULISINE SOLN [id number] Paula Bazzi 24 hr isosorbide mononitrate 30 mg extended release oral tablet (20 sources) Nitrate Vasodilator Start: 04-19-2018 End: 04-01-2024 Comment on above: Take 1 tablet by britt th once daily. lisinopril 10 mg oral tablet (6 sources) Angiotensin Converting Enzyme Inhibitor Start: 05-29-2014 End: 02-23-2017 take 1 tablet by mouth once daily LISINOPRIL 10 MG TABS One tablet by mouth daily LISINOPRIL [id number] David Ashton MD loratadine 10 mg oral [...] One tablet by mouth daily LOSARTAN POTASSIUM [id number] David Ashton MD Comment on above: Take [...] by mouth three times daily MAGNESIUM OXIDE [id number] David Ashton MD melatonin 10 mg sublingual [...] tablet by mouth daily HOLD METOPROLOL TARTRATE [id number] David Ashton MD Start: 07-02-2015 take 0.5 tablet by [facility] twice daily METOPROLOL TARTRATE 25 MG TABS 1/2 tablet by mouth twice daily METOPROLOL TARTRATE [id number] Estrella August RN naproxen 500 mg oral tablet (20 sources) Nonsteroidal Anti-inflammatory Drug Start: 04-19-2018 End: 06-13-2018 Start: 03-11-2016 End: 09-06-2017 Start: 03-11-2016 End: 09-06-2017 take 440 mg by mouth twice daily Naproxen Sodium Discontinued 440 MG PO TWICE A DAY March 11, 2016 12:00am September 06, 2017 1:34pm Start: 06-25-2013 take 2 tablets by mo [facility] once daily ALEVE 220 MG TABS Two tablets by mouth daily NAPROXEN SODIUM [id number] David Ashton MD Start: 06-21-2012 take 1 tablet by britt twice daily NAPROSYN 500 MG TABS One tablet by mouth twice daily NAPROXEN [id number] David Ashton MD Start: 10-28-2010 ALEVE 220 MG T ABS PRN NAPROXEN SODIUM [id number] David Ashton MD oxyCODONE hydrochloride 5 mg [...] mouth daily PROTONIX 40 MG (PANTOPRAZOLE SODIUM) Audelai Espinoza PA-C Comment on above: Take 1 tablet by britt once daily. polysaccharide iron complex 150 mg oral capsule (20 sources) Start: 02-19-2020 End: 07-21-2020 potassium,chelated 99 mg oral tablet (8 sources) Start: 05-29-2014 End: 06-16-2015 take 1 tablet by mouth once daily as needed POTASSIUM 99 MG TABS One tablet by mouth daily as needed POTASSIUM [id number] David Ashton MD Start: 02-25-2011 End: 06-21-2012 take 2 tablets by mouth once daily POTASSIUM 99 MG TABS Two tablets by mouth daily POTASSIUM [id number] Paula Bazzi pravastatin sodium 20 mg ora [...] 2020 12:00am February 19, 2020 9:27pm [facility] 8.6 mg oral tablet (20 sources) Start: [...] TABS One tablet by mouth daily VALSARTAN [id number] Paula Bazzi vitamin d 1000 unt oral tablet (4 sources) Start: 10-28-2010 take 1 tablet by mouth twice daily VITAMIN D 1000 UNIT TABS One tablet by mouth twice daily CHOLECALCIFEROL [id number] Paula Bazzi Start: 10-28-2010 take 5 tablets by mouth once V ITAMIN D 1000 UNIT TABS 5000 IU One tablet by mouth daily CHOLECALCIFEROL [id number] David Ashton MD Problems Active Problems Problem Classification Problem Date Documented Date Episodic/Chronic Abdominal pain (20 sources) Right flank pain; Translations: [Unspecified abdominal pain] Onset: 08-03-2006 Resolved: 12-22-2014 05-09-2017 Episodic Acquired foot deformities (14 sources) Foot-drop; Translations: [Foot drop, left foot] 01-04-2024 Episodic Acute and unspecified renal failure (12 sources) Fgaas-ab-tkmbpms renal failure; Translations: [Acute kidney failure, unspecified] [...] Coronary arteriosclerosis; Translations: [Atherosclerotic heart disease 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] Onset: 10-28-2010 [...] Long-term current use of anticoagulant; Translations: [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] 12-27-2023 Episodic Other [...] (2 sources) Long-term drug therapy; Translations: [Other prison (current) drug therapy] Onset: 10-28-2010 10-28-2010 Unclassified [...] 12-22-2014 12-22-2014 Episodic Other aftercare (1 source) penitentiary (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 of insulin; Translations: [terminal 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 (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 of insulin] Onset: 06-17-2024 Episodic [...] (Unsp spec) [#/Vol] 0.70 10*3/uL Low 0.83-4.51 [facility] Activated partial thrombopla stin time (aPTT) in platelet poor plasma by coagulation aOrdered By: Derick Sorenson on 01-07-2025 aPTT Coag (PPP) [Time] 29.1 s 24.1-36.2 [facility] Anion gap in Serum or Plasma Ordered By: Derick Sorenson on 01-07-2025 Anion gap [Moles/Vol] 14 mmol/L 5-15 [facility] Automated lymphocyte count a s percentage of total leukocytesOrdered By: Derick Sorenson on 01-07-2025 Lymphocytes/100 WBC Auto (Unsp spec) 10.0 % Low 19-41 [facility] BUN/creatinine ratioOrdered By: Derick Sorenson on 01-07-2025 Urea nitrogen/Creatinine [Mass ratio] 13.3 mg/mg 10-20 [facility] Basophil percentageOrdered B y: Derick Sorenson on 01-07-2025 Basophils/100 WBC (Bld) 0.6 % 0-1 [facility] Bilirubin Test strip Ql (U)O rdered By: Derick Sorenson on 01-07-2025 Bilirubin Ql (U) Negative Negative [facility] Bilirubin, totalOrdered By: Derick Sorenson on 01-07-2025 Bilirubin [Mass/Vol] 0.55 mg/dL 0.00-1.30 [facility] Calcium oxalate crystals det ection in urine sediment by light microscopyOrdered By: Derick Sorenson on 01-07-2025 Calcium oxalate crystals LM Ql (Urine sed) RARE /hpf [facility] Carbon dioxide, total [Moles /volume] in Central venous bloodOrdered By: Derick Sorenson on 01-07-2025 CO2 [Moles/Vol] 26.2 mmol/L 21.0-32.0 [facility] Chloride assayOrdered By: Ottoniel Sorenson on 01-07-2025 Chloride [Moles/Vol] 95 mmol/L Low 98-108 [facility] Eosinophil percentageOrdered By: Derick Sorenson on 01-07-2025 Eosinophils/100 WBC (Bld) 1.4 % 0-5 [facility] Erythrocyte distribution wid th ratioOrdered By: Derick Sorenson on 01-07-2025 Erythrocyte distribution width (RBC) [Ratio] 13.7 % 11.6-14.6 [facility] Erythrocyte distribution wid th standard deviationOrdered By: Derick Sorenson on 01-07-2025 Erythrocyte distribution width (RBC) [Ratio] 50.0 fl High 35.1-43.9 [facility] Free X5Oebpgif By: Derick grady on 01-07-2025 Free T3 [Mass/Vol] 2.5 pg/mL 2.18-3.98 [facility] Glomerular filtration rate ( GFR) estimation/1.73 sq m using serum, plasma, or whole bOrdered By: Derick Sorenson 01-07-2025 GFR/1.73 sq M.predicted among non-blacks MDRD (S/P/Bld) [Vol rate/Area] 38 mL/min/{1.73_m2} Low >60 [facility] Hematocrit Auto (Bld) [Volum e fraction]Ordered By: Derick Sorenson 01-07-2025 Hematocrit (Bld) [Volume fraction] 38.6 % Low 40-54 [facility] Hemoglobin measurementOrdere d By: Derick Sorenson 01-07-2025 Hemoglobin (Bld) [Mass/Vol] 13.0 g/dL 13.0-16.5 [facility] Immature granulocytes/100 WB C Auto (Bld)Ordered By: Derick Sorenson 01-07-2025 Immature granulocytes/100 WBC (Bld) 0.900 % 0.0-0.9 [facility] Ketones Test strip Ql (U)Ord ered By: Derick Sorenson on 01-07-2025 Ketones Ql (U) 5 mg/dl High Negative [facility] MCV (mean corpuscular volume ) determinationOrdered By: Derick Sorenson on 01-07-2025 MCV (RBC) [Entitic vol] 97.5 fL High 80-94 [facility] Mean corpuscular hemoglobin (MCH) determinationOrdered By: Derick Sorenson on 01-07-2025 MCH (RBC) [Entitic mass] 32.8 pg High 27.0-32.0 [facility] Monocyte percentageOrdered B y: Derick Sorenson on 01-07-2025 Monocytes/100 WBC (Bld) 8.0 % 0-10 [facility] Mucus LM Ql (Urine sed)Order ed By: Derick Sorenson on 01-07-2025 Mucus Ql (Urine sed) 0 SEEN /hpf [facility] Neutrophil percentageOrdered By: Derick Sorenson on 01-07-2025 Neutrophils/100 WBC (Bld) 79.1 % High 47-70 [facility] Nitrite Test strip Ql (U)Ord ered By: Derick Sorenson on 01-07-2025 Nitrite Ql (U) Negative Negative [facility] No Panel InformationOrdered By: Derick Sorenson on 01-07-2025 22 U/L <38 [facility] Platelet countOrdered By: Ottoniel Sorenson on 01-07-2025 Platelets (Bld) [#/Vol] 226 10*3/uL 150-450 [facility] Potassium measurement (mass/ volume)Ordered By: Derick Sorenson on 01-07-2025 Potassium (Unsp spec) [Mass/Vol] 4.7 mmol/L 3.3-5.1 [facility] Protein Test strip Ql (U)Ord ered By: Derick Sorenson on 01-07-2025 Protein Ql (U) 30 mg/dl High Negative [facility] Prothrombin timeOrdered By: Derick Sorenson on 01-07-2025 PT Coag (PPP) [Time] 14.5 s 11.7-14.9 [facility] RBC Auto (Bld) [#/Vol]Ordere d By: Derick Sorenson on 01-07-2025 RBC (Bld) [#/Vol] 3.96 10*6/uL Low 4.6-6.2 [facility] Serum creatinine measurement (mass/volume)Ordered By: Derick Sorenson on 01-07-2025 Creatinine [Mass/Vol] 1.72 mg/dL High 0.70-1.20 [facility] Serum globulin measurementOr dered By: Derick Sorenson on 01-07-2025 Globulin (S) [Mass/Vol] 2.3 g/dL 2.2-4.2 [facility] Serum glucose measurement (m ass/volume)Ordered By: Derick Sorenson on 01-07-2025 Glucose [Mass/Vol] 124 mg/dL High 70-99 [facility] Serum or plasma alanine peña otransferase (ALT) measurementOrdered By: Derick Sorenson on 01-07-2025 ALT [Catalytic activity/Vol] U/L <47 [facility] Serum or plasma albumin odilon urement (mass/volume)Ordered By: Derick Sorenson on 01-07-2025 Albumin [Mass/Vol] 4.4 g/dL 3.4-4.8 [facility] Serum or plasma albumin/glob ulin mass ratioOrdered By: Derick Sorenson on 01-07-2025 Albumin/Globulin [Mass ratio] 1.9 {ratio} 0.9-2.4 [facility] Serum or plasma alkaline dequan sphatase measurementOrdered By: Derick Sorenson on 01-07-2025 ALP [Catalytic activity/Vol] 53 U/L 40-129 [facility] Serum or plasma calcium odilon urement (mass/volume)Ordered By: Derick Sorenson on 01-07-2025 Calcium [Mass/Vol] 9.8 mg/dL 7.6-11.0 [facility] Serum or plasma urea nitroge n measurement (mass/volume)Ordered By: Derick Sorenson on 01-07-2025 Urea nitrogen [Mass/Vol] 23 mg/dL High 4-19 [facility] Sodium levelOrdered By: Laisha Sorenson on 01-07-2025 Sodium [Moles/Vol] 135 mmol/L 133-145 [facility] Squamous epithelial cells de tection in urine sediment by light microscopyOrdered By: Derick Sorenson on 01-07-2025 Epithelial cells.squamous LM Ql (Urine sed) 0-5 SEEN /hpf 0-5 [facility] T4 freeOrdered By: Derick grady on 01-07-2025 Free T4 [Mass/Vol] 1.20 ng/dL 0.76-1.46 [facility] TSH DL <= 0.005 mIU/L QnOrde red By: Derick Sorenson on 01-07-2025 TSH Qn 1.110 uIU/mL 0.300-4.200 [facility] Total proteinOrdered By: Tyson Sorenson on 01-07-2025 Protein [Mass/Vol] 6.7 g/dL 5.9-8.4 [facility] Transitional cells detection in urine sediment by light microscopyOrdered By: Derick Sorenson on 01-07-2025 Transitional cells LM Ql (Urine sed) 0-5 SEEN /hpf 0-5 [facility] Urine clarityOrdered By: Tyson Sorenson on 01-07-2025 Clarity (U) Clear Clear [facility] Urine color determinationOrd ered By: Derick Sorenson on 01-07-2025 Color (U) Yellow Yellow [facility] Urine glucose detectionOrder ed By: Derick Sorenson on 01-07-2025 Glucose Ql (U) Normal mg/dl Normal [facility] Urine leukocyte esterase det ection by dipstickOrdered By: Derick Sorenson on 01-07-2025 Leukocyte esterase Test strip Ql (U) 500 /ul High Negative [facility] Urine pHOrdered By: Derick irvin on 01-07-2025 pH (U) 6.0 [pH] 5.0 - 8.0 [facility] Urine sediment bacteria coun t by microscopy (number/high power field)Ordered By: Derick Sorenson on 01-07-2025 Bacteria LM.HPF (Urine sed) [#/Area] 1 /[HPF] None Seen [facility] Urine specific gravity measu rementOrdered By: Derick Sorenson on 01-07-2025 Specific gravity (U) [Rel density] 1.015 1.002-1.030 [facility] Urine urobilinogen measureme ntOrdered By: Derick Sorenson on 01-07-2025 Urobilinogen Ql (U) Normal mg/dl Normal [facility] White blood cell (WBC) count Ordered By: Derick Sorenson on 01-07-2025 WBC (Bld) [#/Vol] 7.0 10*3/uL 4.4-11.0 [facility] White blood cell countOrdere d By: Derick Sorenson on 01-07-2025 White blood cell count 10-25 SEEN /hpf 0-5 [facility] Echo Completeon 01-02-2025 Echo Complete Normal [facility] Brain/Head without Contrasto n 12-31-2024 Brain/Head without Contrast Normal [facility] Emergency Department Summary on 12-31-2024 Emergency Department Summary Normal [facility] MR/BMS.IMBon 12-30-2024 MR/BMS.IMB Normal [facility] Cardiology Visit Reporton Cardiology Visit Report Normal [facility] Absolute lymphocyte countOrd ered By: Derick Sorenson on 12-21-2024 Lymphocytes Auto (Unsp spec) [#/Vol] 1.36 10*3/uL 0.83-4.51 [facility] Absolute neutrophil countOrd ered By: Derick Sorenson on 12-21-2024 Neutrophils (Bld) [#/Vol] 3.4 10*3/uL 2.0-7.7 [facility] Activated partial thrombopla stin time (aPTT) in platelet poor plasma by coagulation aOrdered By: Derick Sorenson on 12-21-2024 aPTT Coag (PPP) [Time] 29.7 s 24.1-36.2 [facility] Anion gap in Serum or Plasma Ordered By: Derick Sorenson on 12-21-2024 Anion gap [Moles/Vol] 14 mmol/L 5-15 [facility] Automated lymphocyte count a s percentage of total leukocytesOrdered By: Derick Sorenson on 12-21-2024 Lymphocytes/100 WBC Auto (Unsp spec) 24.4 % 19-41 [facility] BUN/creatinine ratioOrdered By: Derick Sorenson on 12-21-2024 Urea nitrogen/Creatinine [Mass ratio] 9.8 mg/mg Low 10-20 [facility] Basic Metabolic Profile (BMP )on 12-21-2024 BUN/CRE 9.8 RATIO Low 10-20 [facility] Comment on above: Performed By: #### L 500.2500, L503.7505 ####[facility] [address] [place], [address] Calcium [Mass/Vol] 9.9 mg/dL Normal 7.6-11.0 [facility] Comment on above: Performed By: #### L 500.2500, [id number] ####[facility] [address] [place], [address] Chloride [Moles/Vol] 99 mmol/L Normal 98-108 [facility] Comment on above: Performed By: #### L 500.2500, [id number] ####[facility] [address] [place], [address] CO2 [Moles/Vol] 26.4 mmol/L Normal 21.0-32.0 [facility] Comment on above: Performed By: #### L 500.2500, [id number] ####[facility] [address] [place], [address] Creatinine [Mass/Vol] 1.46 mg/dL High 0.70-1.20 [facility] Comment on above: Performed By: #### L 500.2500, [id number] ####[facility] [address] [place], [address] ECRCL 38.29 ml/min Low 50-250 [facility] Comment on above: Performed By: #### L 500.2500, [id number] ####[facility] [address] [place], [place], [address] GAP 14 Normal 5-15 [facility] Comment on above: Performed By: #### L 500.2500, L503.7505 ####[facility] [address] [place], [address] GFR/1.73 sq M.predicted among non-blacks MDRD (S/P/Bld) [Vol rate/Area] 46 mL/min/{1.73_m2} Low >60 [facility] Comment on above: Result Comment: mL/m in/1.73m2 CKD-EPI Creatinine Equation (2020) Performed By: #### L 500.2500, L503.7505 ####[facility] [address] [place], [address] Glucose [Mass/Vol] 63 mg/dL Low 70-99 [facility] Comment on above: Performed By: #### L 500.2500, L503.7505 ####[facility] [address] [place], [address] Potassium [Moles/Vol] 3.8 mmol/L Normal 3.3-5.1 [facility] Comment on above: Performed By: #### L 500.2500, L503.7505 ####[facility] [address] [place], [address] Sodium [Moles/Vol] 139 mmol/L Normal 133-145 [facility] Comment on above: Performed By: #### L 500.2500, L503.7505 ####[facility] [address] [place], [address] Urea nitrogen [Mass/Vol] 14 mg/dL Normal 4-19 [facility] Comment on above: Performed By: #### L 500.2500, L503.7505 ####[facility] [address] [place], [address] Basophil percentageOrdered B y: Derick Sorenson on 12-21-2024 Basophils/100 WBC (Bld) 0.9 % 0-1 [facility] CBC W/Diff, Automatedon 07-0 5-2025 Absolute Lymph 1.36 X10 3/uL Normal 0.83-4.51 [facility] Comment on above: Performed By: #### L 300.3900, L100.0100, L501.4021, L300.4310 ####[facility] [address] [place], [address] Absolute Neut 3.4 X10 3/uL Normal 2.0-7.7 [facility] Comment on above: Performed By: #### L 300.3900, L100.0100, L501.4021, L300.4310 ####[facility] [address] [place], [address] Basophils/100 WBC (Bld) 0.9 % Normal 0-1 [facility] Comment on above: Performed By: #### L 300.3900, L100.0100, L501.4021, L300.4310 ####[facility] [address] [place], [address] Eosinophils/100 WBC (Bld) 3.1 % Normal 0-5 [facility] Comment on above: Performed By: #### L 300.3900, L100.0100, L501.4021, L300.4310 ####[facility] [address] [place], [address] Erythrocyte distribution width (RBC) [Ratio] 14.1 % Normal 11.6-14.6 [facility] Comment on above: Performed By: #### L 300.3900, L100.0100, L501.4021, L300.4310 ####[facility] [address] [place], [address] Hematocrit (Bld) [Volume fraction] 40.5 % Normal 40-54 [facility] Comment on above: Performed By: #### L 300.3900, L100.0100, L501.4021, L300.4310 ####[facility] [address] [place], [address] Hemoglobin (Bld) [Mass/Vol] 13.9 g/dL Normal 13.0-16.5 [facility] Comment on above: Performed By: #### L 300.3900, L100.0100, L501.4021, L300.4310 ####[facility] [address] [place], [address] IG% 0.700 Normal 0.0-0.9 [facility] Comment on above: Result Comment: IG% - Immature Granulocytes (promyelocytes, myelocytes andmetamyelocytes) > 1% indicates that a LEFT SHIFT is Present. Performed By: #### L 300.3900, L100.0100, L501.4021, L300.4310 ####[facility] [address] [place], [address] Lymphocytes/100 WBC (Bld) 24.4 % Normal 19-41 [facility] Comment on above: Performed By: #### L 300.3900, L100.0100, L501.4021, L300.4310 ####[facility] [address] [place], [address] MCH (RBC) [Entitic mass] 33.2 pg High 27.0-32.0 [facility] Comment on above: Performed By: #### L 300.3900, L100.0100, L501.4021, L300.4310 ####[facility] [address] [place], [address] MCHC (RBC) [Mass/Vol] 34.3 g/dL Normal 32-36 [facility] Comment on above: Performed By: #### L 300.3900, L100.0100, L501.4021, L300.4310 ####[facility] [address] [place], [address] MCV (RBC) [Entitic vol] 96.7 fL High 80-94 [facility] Comment on above: Performed By: #### L 300.3900, L100.0100, L501.4021, L300.4310 ####[facility] [address] [place], [address] Monocytes/100 WBC (Bld) 10.8 % High 0-10 [facility] Comment on above: Performed By: #### L 300.3900, L100.0100, L501.4021, L300.4310 ####[facility] [address] [place], [address] Neutrophils/100 WBC (Bld) 60.1 % Normal 47-70 [facility] Comment on above: Performed By: #### L 300.3900, L100.0100, L501.4021, L300.4310 ####[facility] [address] [place], [address] Nucleated RBC (Bld) [#/Vol] 0 10*3/uL Normal 0-5 [facility] Comment on above: Performed By: #### L 300.3900, L100.0100, L501.4021, L300.4310 ####[facility] [address] [place], [address] Platelet mean volume (Bld) [Entitic vol] 9.1 fL Normal 6.2-12.0 [facility] Comment on above: Performed By: #### L 300.3900, L100.0100, L501.4021, L300.4310 ####[facility] [address] [place], [address] Platelets (Bld) [#/Vol] 211 10*3/uL Normal 150-450 [facility] Comment on above: Performed By: #### L 300.3900, L100.0100, L501.4021, L300.4310 ####[facility] [address] [place], [address] RBC (Bld) [#/Vol] 4.19 10*6/uL Low 4.6-6.2 [facility] Comment on above: Performed By: #### L 300.3900, L100.0100, L501.4021, L300.4310 ####[facility] [address] [place], [address] RDW SD 50.2 fl High 35.1-43.9 [facility] Comment on above: Performed By: #### L 300.3900, L100.0100, L501.4021, L300.4310 ####[facility] [address] [place], [address] WBC (Bld) [#/Vol] 5.6 10*3/uL Normal 4.4-11.0 [facility] Comment on above: Performed By: #### L 300.3900, L100.0100, L501.4021, L300.4310 ####[facility] [address] [place], [address] Carbon dioxide, total [Moles /volume] in Central venous bloodOrdered By: Derick Sorenson on 12-21-2024 CO2 [Moles/Vol] 26.4 mmol/L 21.0-32.0 [facility] Chest PA and Lateralon 12-21 Chest PA and Lateral Normal [facility] Chest without Contraston Chest without Contrast Normal [facility] Chloride assayOrdered By: Ottoniel Sorenson on 12-21-2024 Chloride [Moles/Vol] 99 mmol/L 98-108 [facility] Emergency Department Summary on 12-21-2024 Emergency Department Summary Normal [facility] Eosinophil percentageOrdered By: Derick Sorenson on 12-21-2024 Eosinophils/100 WBC (Bld) 3.1 % 0-5 [facility] Erythrocyte distribution wid th ratioOrdered By: Derick Sorenson on 12-21-2024 Erythrocyte distribution width (RBC) [Ratio] 14.1 % 11.6-14.6 [facility] Erythrocyte distribution wid th standard deviationOrdered By: Derick Sorenson on 12-21-2024 Erythrocyte distribution width (RBC) [Ratio] 50.2 fl High 35.1-43.9 [facility] Glomerular filtration rate ( GFR) estimation/1.73 sq m using serum, plasma, or whole bOrdered By: Derick Sorenson on 12-21-2024 GFR/1.73 sq M.predicted among non-blacks MDRD (S/P/Bld) [Vol rate/Area] 46 mL/min/{1.73_m2} Low >60 [facility] Comment on above: mL/min/1.73m2 CKD-EP I Creatinine Equation (2020) Hematocrit Auto (Bld) [Volum e fraction]Ordered By: Derick Sorenson on 12-21-2024 Hematocrit (Bld) [Volume fraction] 40.5 % 40-54 [facility] Hemoglobin measurementOrdere d By: Derick Sorenson on 12-21-2024 Hemoglobin (Bld) [Mass/Vol] 13.9 g/dL 13.0-16.5 [facility] Immature granulocytes/100 WB C Auto (Bld)Ordered By: Derick Sorenson on 12-21-2024 Immature granulocytes/100 WBC (Bld) 0.700 % 0.0-0.9 [facility] Comment on above: IG% - Immature Granu locytes (promyelocytes, myelocytes and metamyelocytes) > 1% indicates that a LEFT SHIFT is Present. International normalized rat io (INR) calculationOrdered By: Derick Sorenson on 12-21-2024 INR Coag (Bld) [Relative time] 1.1 {INR} [facility] L499.0042on 12-21-2024 Trop T High Sen 42 ng/L High <=22 [facility] Comment on above: Performed By: #### L 499.0042 ####[facility] [address] [place], [address] L499.0043on 12-21-2024 Trop T High Sen Normal <=22 [facility] Comment on above: Result Comment: Canc elled via OM: dr morgan Performed By: #### L 499.0043 ####[facility] [address] [place], [address] L501.4021on 12-21-2024 Trop T High Sen 44 ng/L High <=22 [facility] Comment on above: Performed By: #### L 300.3900, L100.0100, L501.4021, L300.4310 ####[facility] [address] [place], [address] L503.7505on 12-21-2024 Natriuretic peptide B (Bld) [Mass/Vol] 542 pg/mL Normal <=1800 [facility] Comment on above: Result Comment: Hear t Failure Unlikely: < 300 pg/mLHeart Failure Likely< 50 Years: > 450 pg/mL50-75 Years: > 900 pg/mL>75 Years: > 1800 pg/mL Performed By: #### L 500.2500, L503.7505 ####[facility] [address] [place], [address] MCV (mean corpuscular volume ) determinationOrdered By: Derick Sorenson on 12-21-2024 MCV (RBC) [Entitic vol] 96.7 fL High 80-94 [facility] Mean corpuscular hemoglobin (MCH) determinationOrdered By: Derick Sorenson on 12-21-2024 MCH (RBC) [Entitic mass] 33.2 pg High 27.0-32.0 [facility] Mean corpuscular hemoglobin concentration (MCHC) determinationOrdered By: Derick Sorenson on 12-21-2024 MCHC (RBC) [Mass/Vol] 34.3 g/dL 32-36 [facility] Mean platelet volume determi nationOrdered By: Derick Sorenson on 12-21-2024 Platelet mean volume (Bld) [Entitic vol] 9.1 fL 6.2-12.0 [facility] Monocyte percentageOrdered B y: Derick Sorenson on 07-05-2025 Monocytes/100 WBC (Bld) 10.8 % High 0-10 [facility] Natriuretic peptide.B prohor lam N-Terminal [Mass/volume] in Serum or PlasmaOrdered By: Derick Sorenson on 12-21-2024 Natriuretic peptide.B prohormone N-Terminal [Mass/Vol] 542 pg/mL <1800 [facility] Comment on above: Heart Failure Unlike ly: < 300 pg/mLHeart Failure Likely< 50 Years: > 450 pg/mL50-75 Years: > 900 pg/mL>75 Years: > 1800 pg/mL Neutrophil percentageOrdered By: Derick Sorenson on 12-21-2024 Neutrophils/100 WBC (Bld) 60.1 % 47-70 [facility] Nucleated red blood cell per centageOrdered By: Derick Sorenson on 12-21-2024 Nucleated RBC/100 WBC (Bld) [Ratio] 0 % 0-5 [facility] Partial Thromboplast Timeon 12-21-2024 aPTT Coag (Bld) [Time] 29.7 s Normal 24.1-36.2 [facility] Comment on above: Performed By: #### L 300.3900, L100.0100, L501.4021, L300.4310 ####[facility] [address] [place], [place], [id number] Platelet countOrdered By: Ottoniel Sorenson on 12-21-2024 Platelets (Bld) [#/Vol] 211 10*3/uL 150-450 [facility] Potassium measurement (mass/ volume)Ordered By: Derick Sorenson on 12-21-2024 Potassium (Unsp spec) [Mass/Vol] 3.8 mmol/L 3.3-5.1 [facility] Prothrombin Time w/INRon INR Coag (PPP) [Relative time] 1.1 {INR} Normal [facility] Comment on above: Performed By: #### L 300.3900, L100.0100, L501.4021, L300.4310 ####[facility] [address] [place], [address] PT Coag (PPP) [Time] 14.6 s Normal 11.7-14.9 [facility] Comment on above: Performed By: #### L 300.3900, L100.0100, L501.4021, L300.4310 ####[facility] [address] [place], [address] Prothrombin timeOrdered By: Derick Sorenson on 12-21-2024 PT Coag (PPP) [Time] 14.6 s 11.7-14.9 [facility] RBC Auto (Bld) [#/Vol]Ordere d By: Derick Sorenson on 12-21-2024 RBC (Bld) [#/Vol] 4.19 10*6/uL Low 4.6-6.2 [facility] Serum creatinine measurement (mass/volume)Ordered By: Derick Sorenson on 12-21-2024 Creatinine [Mass/Vol] 1.46 mg/dL High 0.70-1.20 [facility] Serum glucose measurement (m ass/volume)Ordered By: Derick Sorenson on 12-21-2024 Glucose [Mass/Vol] 63 mg/dL Low 70-99 [facility] Serum or plasma calcium odilon urement (mass/volume)Ordered By: Derick Sorenson on 12-21-2024 Calcium [Mass/Vol] 9.9 mg/dL 7.6-11.0 [facility] Serum or plasma urea nitroge n measurement (mass/volume)Ordered By: Derick Sorenson on 12-21-2024 Urea nitrogen [Mass/Vol] 14 mg/dL 4-19 [facility] Sodium levelOrdered By: Laisha Sorenson on 12-21-2024 Sodium [Moles/Vol] 139 mmol/L 133-145 [facility] Troponin T.cardiac [Mass/vol ume] in Serum or Plasma by High sensitivity methodOrdered By: Derick Sorenson on 12-21-2024 Troponin T.cardiac High sensitivity method [Mass/Vol] 42 ng/L High <22 [facility] Troponin T.cardiac High sensitivity method [Mass/Vol] 44 ng/L High <22 [facility] White blood cell (WBC) count Ordered By: Derick Sorenson on 12-21-2024 WBC (Bld) [#/Vol] 5.6 10*3/uL 4.4-11.0 [facility] (PODIWS ) BARRYOLMAN ([id number]) 1935 M Date Time Provider Department 12/13/24 [...] Objective: Patient presents to clinic ambulating in [facility] Vasc: DP and PT pulses [...] by mout (more content not included)... Normal [facility] Chest PA and Lateralon 12-09 Chest PA and Lateral Normal [facility] MR/BMS.IMBon 12-09-2024 MR/BMS.IMB Normal [facility] Absolute lymphocyte countOrd ered By: Keron Maciel on 11-25-2024 Lymphocytes Auto (Unsp spec) [#/Vol] 0.98 10*3/uL 0.83-4.51 [facility] Absolute neutrophil countOrd ered By: Keron Maciel on 11-25-2024 Neutrophils (Bld) [#/Vol] 4.3 10*3/uL 2.0-7.7 [facility] Anion gap in Serum or Plasma Ordered By: Keron Maciel on 11-25-2024 Anion gap [Moles/Vol] 14 mmol/L 5- [facility] Automated lymphocyte count a s percentage of total leukocytesOrdered By: Keron Maciel on 11-25-2024 Lymphocytes/100 WBC Auto (Unsp spec) 15.9 % Low 19-41 [facility] BUN/creatinine ratioOrdered By: Keron Maciel on 11-25-2024 Urea nitrogen/Creatinine [Mass ratio] 13.8 mg/mg 10- [facility] Basic Metabolic Profile (BMP )on 11-25-2024 BUN/CRE 13.8 RATIO Normal - [facility] Comment on above: Performed By: #### L 500.2500, L503.7505, L100.0100 ####[facility] [address] [place], [address] Calcium [Mass/Vol] 10.1 mg/dL Normal 7.6-11.0 [facility] Comment on above: Performed By: #### L 500.2500, L503.7505, L100.0100 ####[facility] [address] [place], [address] Chloride [Moles/Vol] 101 mmol/L Normal 98-108 [facility] Comment on above: Performed By: #### L 500.2500, L503.7505, L100.0100 ####[facility] [address] [place], [address] CO2 [Moles/Vol] 24.3 mmol/L Normal 21.0-32.0 [facility] Comment on above: Performed By: #### L 500.2500, L503.7505, L100.0100 ####[facility] [address] [place], [address] Creatinine [Mass/Vol] 1.60 mg/dL High 0.70-1.20 [facility] Comment on above: Performed By: #### L 500.2500, L503.7505, L100.0100 ####[facility] [address] [place], [address] GAP 14 Normal 5-15 [facility] Comment on above: Performed By: #### L 500.2500, L503.7505, L100.0100 ####[facility] [address] [place], [address] GFR/1.73 sq M.predicted among non-blacks MDRD (S/P/Bld) [Vol rate/Area] 41 mL/min/{1.73_m2} Low >60 [facility] Comment on above: Result Comment: mL/m in/1.73m2 CKD-EPI Creatinine Equation (2020) Performed By: #### L 500.2500, L503.7505, L100.0100 ####[facility] [address] [place], [address] Glucose [Mass/Vol] 202 mg/dL High 70-99 [facility] Comment on above: Performed By: #### L 500.2500, L503.7505, L100.0100 ####[facility] [address] [place], [address] Potassium [Moles/Vol] 4.6 mmol/L Normal 3.3-5.1 [facility] Comment on above: Performed By: #### L 500.2500, L503.7505, L100.0100 ####[facility] [address] [place], [address] Sodium [Moles/Vol] 140 mmol/L Normal 133-145 [facility] Comment on above: Performed By: #### L 500.2500, L503.7505, L100.0100 ####[facility] [address] [place], [address] Urea nitrogen [Mass/Vol] 22 mg/dL High 4-19 [facility] Comment on above: Performed By: #### L 500.2500, L503.7505, L100.0100 ####[facility] [address] [place], [address] Basophil percentageOrdered B y: Keron Maciel on 11-25-2024 Basophils/100 WBC (Bld) 0.6 % 0-1 [facility] CBC W/Diff, Automatedon Absolute Lymph 0.98 X10 3/uL Normal 0.83-4.51 [facility] Comment on above: Performed By: #### L 500.2500, L503.7505, L100.0100 ####[facility] [address] [place], [address] Absolute Neut 4.3 X10 3/uL Normal 2.0-7.7 [facility] Comment on above: Performed By: #### L 500.2500, L503.7505, L100.0100 ####[facility] [address] [place], [address] Basophils/100 WBC (Bld) 0.6 % Normal 0-1 [facility] Comment on above: Performed By: #### L 500.2500, L503.7505, L100.0100 ####[facility] [address] [place], [address] Eosinophils/100 WBC (Bld) 1.9 % Normal 0-5 [facility] Comment on above: Performed By: #### L 500.2500, L503.7505, L100.0100 ####[facility] [address] [place], [address] Erythrocyte distribution width (RBC) [Ratio] 14.6 % Normal 11.6-14.6 [facility] Comment on above: Performed By: #### L 500.2500, L503.7505, L100.0100 ####[facility] [address] [place], [address] Hematocrit (Bld) [Volume fraction] 39.6 % Low 40-54 [facility] Comment on above: Performed By: #### L 500.2500, L503.7505, L100.0100 ####[facility] [address] [place], [address] Hemoglobin (Bld) [Mass/Vol] 13.5 g/dL Normal 13.0-16.5 [facility] Comment on above: Performed By: #### L 500.2500, L503.7505, L100.0100 ####[facility] [address] [place], [address] IG% 2.100 High 0.0-0.9 [facility] Comment on above: Result Comment: IG% - Immature Granulocytes (promyelocytes, myelocytes andmetamyelocytes) > 1% indicates that a LEFT SHIFT is Present. Performed By: #### L 500.2500, L503.7505, L100.0100 ####[facility] [address] [place], [address] Lymphocytes/100 WBC (Bld) 15.9 % Low 19-41 [facility] Comment on above: Performed By: #### L 500.2500, L503.7505, L100.0100 ####[facility] [address] [place], [address] MCH (RBC) [Entitic mass] 33.4 pg High 27.0-32.0 [facility] Comment on above: Performed By: #### L 500.2500, L503.7505, L100.0100 ####[facility] [address] [place], [address] MCHC (RBC) [Mass/Vol] 34.1 g/dL Normal 32-36 [facility] Comment on above: Performed By: #### L 500.2500, L503.7505, L100.0100 ####[facility] [address] [place], [address] MCV (RBC) [Entitic vol] 98.0 fL High 80-94 [facility] Comment on above: Performed By: #### L 500.2500, L503.7505, L100.0100 ####[facility] [address] [place], [address] Monocytes/100 WBC (Bld) 9.7 % Normal 0-10 [facility] Comment on above: Performed By: #### L 500.2500, L503.7505, L100.0100 ####[facility] [address] [place], [address] Neutrophils/100 WBC (Bld) 69.8 % Normal 47-70 [facility] Comment on above: Performed By: #### L 500.2500, L503.7505, L100.0100 ####[facility] [address] [place], [address] Nucleated RBC (Bld) [#/Vol] 0 10*3/uL Normal 0-5 [facility] Comment on above: Performed By: #### L 500.2500, L503.7505, L100.0100 ####[facility] [address] [place], [address] Platelet mean volume (Bld) [Entitic vol] 9.6 fL Normal 6.2-12.0 [facility] Comment on above: Performed By: #### L 500.2500, L503.7505, L100.0100 ####[facility] [address] [place], [address] Platelets (Bld) [#/Vol] 230 10*3/uL Normal 150-450 [facility] Comment on above: Performed By: #### L 500.2500, L503.7505, L100.0100 ####[facility] [address] [place], [address] RBC (Bld) [#/Vol] 4.04 10*6/uL Low 4.6-6.2 [facility] Comment on above: Performed By: #### L 500.2500, L503.7505, L100.0100 ####[facility] [address] [place], [address] RDW SD 53.1 fl High 35.1-43.9 [facility] Comment on above: Performed By: #### L 500.2500, L503.7505, L100.0100 ####[facility] [address] [place], [address] WBC (Bld) [#/Vol] 6.2 10*3/uL Normal 4.4-11.0 [facility] Comment on above: Performed By: #### L 500.2500, L503.7505, L100.0100 ####[facility] [address] [place], [address] Carbon dioxide, total [Moles /volume] in Central venous bloodOrdered By: Keron Maciel on 11-25-2024 CO2 [Moles/Vol] 24.3 mmol/L 21.0-32.0 [facility] Chest PA and Lateralon 11-25 Chest PA and Lateral Normal [facility] Chloride assayOrdered By: Madeleine Maciel on 11-25-2024 Chloride [Moles/Vol] 101 mmol/L 98-108 [facility] Eosinophil percentageOrdered By: Keron Maciel on 11-25-2024 Eosinophils/100 WBC (Bld) 1.9 % 0-5 [facility] Erythrocyte distribution wid th ratioOrdered By: Keron Maciel on 11-25-2024 Erythrocyte distribution width (RBC) [Ratio] 14.6 % 11.6-14.6 [facility] Erythrocyte distribution wid th standard deviationOrdered By: Keron Maciel on 11-25-2024 Erythrocyte distribution width (RBC) [Ratio] 53.1 fl High 35.1-43.9 [facility] Glomerular filtration rate ( GFR) estimation/1.73 sq m using serum, plasma, or whole bOrdered By: Keron Maciel on 11-25-2024 GFR/1.73 sq M.predicted among non-blacks MDRD (S/P/Bld) [Vol rate/Area] 41 mL/min/{1.73_m2} Low >60 [facility] Comment on above: mL/min/1.73m2 CKD-EP I Creatinine Equation (2020) Hematocrit Auto (Bld) [Volum e fraction]Ordered By: Keron Maciel on 11-25-2024 Hematocrit (Bld) [Volume fraction] 39.6 % Low 40-54 [facility] Hemoglobin measurementOrdere d By: Keron Maceil on 11-25-2024 Hemoglobin (Bld) [Mass/Vol] 13.5 g/dL 13.0-16.5 [facility] Immature granulocytes/100 WB C Auto (Bld)Ordered By: Keron Maciel on 11-25-2024 Immature granulocytes/100 WBC (Bld) 2.100 % High 0.0-0.9 [facility] Comment on above: IG% - Immature Granu locytes (promyelocytes, myelocytes and metamyelocytes) > 1% indicates that a LEFT SHIFT is Present. L503.7505on 11-25-2024 Natriuretic peptide B (Bld) [Mass/Vol] 502 pg/mL Normal <=1800 [facility] Comment on above: Result Comment: Hear t Failure Unlikely: < 300 pg/mLHeart Failure Likely< 50 Years: > 450 pg/mL50-75 Years: > 900 pg/mL>75 Years: > 1800 pg/mL Performed By: #### L 500.2500, L503.7505, L100.0100 ####[facility] [address] [place], [place], [id number] MCV (mean corpuscular volume ) determinationOrdered By: Keron Maciel on 11-25-2024 MCV (RBC) [Entitic vol] 98.0 fL High 80-94 [facility] MR/BMS.IMBon 11-25-2024 MR/BMS.IMB Normal [facility] Mean corpuscular hemoglobin (MCH) determinationOrdered By: Keron Maciel on 11-25-2024 MCH (RBC) [Entitic mass] 33.4 pg High 27.0-32.0 [facility] Mean corpuscular hemoglobin concentration (MCHC) determinationOrdered By: Keron Maciel on 11-25-2024 MCHC (RBC) [Mass/Vol] 34.1 g/dL 32-36 [facility] Mean platelet volume determi nationOrdered By: Keron Maciel on 11-25-2024 Platelet mean volume (Bld) [Entitic vol] 9.6 fL 6.2-12.0 [facility] Monocyte percentageOrdered B y: Keron Maciel on 11-25-2024 Monocytes/100 WBC (Bld) 9.7 % 0-10 [facility] Natriuretic peptide.B prohor lam N-Terminal [Mass/volume] in Serum or PlasmaOrdered By: Keron Maciel on 11-25-2024 Natriuretic peptide.B prohormone N-Terminal [Mass/Vol] 502 pg/mL <1800 [facility] Comment on above: Heart Failure Unlike ly: < 300 pg/mLHeart Failure Likely< 50 Years: > 450 pg/mL50-75 Years: > 900 pg/mL>75 Years: > 1800 pg/mL Neutrophil percentageOrdered By: Keron Maciel on 11-25-2024 Neutrophils/100 WBC (Bld) 69.8 % 47-70 [facility] Nucleated red blood cell per centageOrdered By: Keron Maciel on 11-25-2024 Nucleated RBC/100 WBC (Bld) [Ratio] 0 % 0-5 [facility] Platelet countOrdered By: Madeleine Maciel on 11-25-2024 Platelets (Bld) [#/Vol] 230 10*3/uL 150-450 [facility] Potassium measurement (mass/ volume)Ordered By: Keron Maciel on 11-25-2024 Potassium (Unsp spec) [Mass/Vol] 4.6 mmol/L 3.3-5.1 [facility] RBC Auto (Bld) [#/Vol]Ordere d By: Keron Maciel on 11-25-2024 RBC (Bld) [#/Vol] 4.04 10*6/uL Low 4.6-6.2 [facility] Serum creatinine measurement (mass/volume)Ordered By: Keron Maciel on 11-25-2024 Creatinine [Mass/Vol] 1.60 mg/dL High 0.70-1.20 [facility] Serum glucose measurement (m ass/volume)Ordered By: Keron Maciel on 11-25-2024 Glucose [Mass/Vol] 202 mg/dL High 70-99 [facility] Serum or plasma calcium odilon urement (mass/volume)Ordered By: Keron Maciel on 11-25-2024 Calcium [Mass/Vol] 10.1 mg/dL 7.6-11.0 [facility] Serum or plasma urea nitroge n measurement (mass/volume)Ordered By: Keron Maciel on 11-25-2024 Urea nitrogen [Mass/Vol] 22 mg/dL High 4-19 [facility] Sodium levelOrdered By: Beatrice Maciel on 11-25-2024 Sodium [Moles/Vol] 140 mmol/L 133-145 [facility] White blood cell (WBC) count Ordered By: Keron Maciel on 11-25-2024 WBC (Bld) [#/Vol] 6.2 10*3/uL 4.4-11.0 [facility] Urine Cultureon 11-22-2024 URC Normal [facility] Comment on above: Performed By: #### M 100.2200 ####[facility] [address] [place], [address] Basic Metabolic Profile (BMP )on 11-20-2024 BUN/CRE 14.4 RATIO Normal 10-20 [facility] Comment on above: Performed By: #### L 503.7505, L100.0100, L501.9520, L501.5200, L500.2500 ####[facility] [address] [place], [address] Calcium [Mass/Vol] 10.0 mg/dL Normal 7.6-11.0 [facility] Comment on above: Performed By: #### L 503.7505, L100.0100, L501.9520, L501.5200, L500.2500 ####[facility] [address] [place], [address] Chloride [Moles/Vol] 97 mmol/L Low 98-108 [facility] Comment on above: Performed By: #### L 503.7505, L100.0100, L501.9520, L501.5200, L500.2500 ####[facility] [address] [place], [address] CO2 [Moles/Vol] 27.2 mmol/L Normal 21.0-32.0 [facility] Comment on above: Performed By: #### L 503.7505, L100.0100, L501.9520, L501.5200, L500.2500 ####[facility] [address] [place], [address] Creatinine [Mass/Vol] 1.77 mg/dL High 0.70-1.20 [facility] Comment on above: Performed By: #### L 503.7505, L100.0100, L501.9520, L501.5200, L500.2500 ####[facility] [address] [place], [address] ECRCL 30.88 ml/min Low 50-250 [facility] Comment on above: Performed By: #### L 503.7505, L100.0100, L501.9520, L501.5200, L500.2500 ####[facility] [address] [place], [address] GAP 13 Normal 5-15 [facility] Comment on above: Performed By: #### L 503.7505, L100.0100, L501.9520, L501.5200, L500.2500 ####[facility] [address] [place], [address] GFR/1.73 sq M.predicted among non-blacks MDRD (S/P/Bld) [Vol rate/Area] 37 mL/min/{1.73_m2} Low >60 [facility] Comment on above: Result Comment: mL/m in/1.73m2 CKD-EPI Creatinine Equation (2020) Performed By: #### L 503.7505, L100.0100, L501.9520, L501.5200, L500.2500 ####[facility] [address] [place], [address] Glucose [Mass/Vol] 102 mg/dL High 70-99 [facility] Comment on above: Performed By: #### L 503.7505, L100.0100, L501.9520, L501.5200, L500.2500 ####[facility] [address] [place], [address] Potassium [Moles/Vol] 4.9 mmol/L Normal 3.3-5.1 [facility] Comment on above: Result Comment: Hemo lysis present, Results??could be affected.?? Performed By: #### L 503.7505, L100.0100, L501.9520, L501.5200, L500.2500 ####[facility] [address] [place], [address] Sodium [Moles/Vol] 138 mmol/L Normal 133-145 [facility] Comment on above: Performed By: #### L 503.7505, L100.0100, L501.9520, L501.5200, L500.2500 ####[facility] [address] [place], [address] Urea nitrogen [Mass/Vol] 26 mg/dL High 4-19 [facility] Comment on above: Performed By: #### L 503.7505, L100.0100, L501.9520, L501.5200, L500.2500 ####[facility] [address] [place], [address] L503.7505on 11-20-2024 Natriuretic peptide B (Bld) [Mass/Vol] 521 pg/mL Normal <=1800 [facility] Comment on above: Result Comment: Hear t Failure Unlikely: < 300 pg/mLHeart Failure Likely< 50 Years: > 450 pg/mL50-75 Years: > 900 pg/mL>75 Years: > 1800 pg/mL Performed By: #### L 503.7505, L100.0100, L501.9520, L501.5200, L500.2500 ####[facility] [address] [place], [address] M100.678on 11-20-2024 M100.678 SARS-CoV-2 (COVID 19 ) Negative INFLUENZA A Negative INFLUENZA B Negative RSV PCR Negative Normal [facility] Comment on above: Performed By: #### M 100.678, L400.0001 ####[facility] [address] [place], [address] Magnesiumon 11-20-2024 Magnesium [Mass/Vol] 2.1 mg/dL Normal 1.5-2.2 [facility] Comment on above: Performed By: #### L 503.7505, L100.0100, L501.9520, L501.5200, L500.2500 ####[facility] [address] [place], [address] Thyroid Stim Hormone (TSH)on 11-20-2024 TSH 1.790 uIU/mL Normal 0.300-4.200 [facility] Comment on above: Performed By: #### L 503.7505, L100.0100, L501.9520, L501.5200, L500.2500 ####[facility] [address] [place], [address] Urinalysis, Completeon 11-20 BACTERIA 2+ /hpf Normal None Seen [facility] Comment on above: Order Comment: LOIS CTOR TO SPECIFY Performed By: #### M 100.678, L400.0001 ####[facility] [address] [place], [address] WBC 50-100 SEEN Normal 0-5 [facility] Comment on above: Order Comment: LOIS CTOR TO SPECIFY Performed By: #### M 100.678, L400.0001 ####[facility] [address] [place], [address] 12 Lead EKGon 11-19-2024 12 Lead EKG Normal [facility] Absolute lymphocyte countOrd ered By: Helio Corrales on 11-19-2024 Lymphocytes Auto (Unsp spec) [#/Vol] 1.46 10*3/uL 0.83-4.51 [facility] Absolute neutrophil countOrd ered By: Helio Corrales on 11-19-2024 Neutrophils (Bld) [#/Vol] 4.8 10*3/uL 2.0-7.7 [facility] Anion gap in Serum or Plasma Ordered By: Helio Corrales on 11-19-2024 Anion gap [Moles/Vol] 13 mmol/L 5-15 [facility] Automated lymphocyte count a s percentage of total leukocytesOrdered By: Helio Corrales on 11-19-2024 Lymphocytes/100 WBC Auto (Unsp spec) 20.0 % 19-41 [facility] BUN/creatinine ratioOrdered By: Helio Corrales on 11-19-2024 Urea nitrogen/Creatinine [Mass ratio] 14.4 mg/mg 10-20 [facility] Basophil percentageOrdered B y: Helio Corrales on 11-19-2024 Basophils/100 WBC (Bld) 1.0 % 0-1 [facility] Bilirubin Test strip Ql (U)O rdered By: Helio Corrales on 11-19-2024 Bilirubin Ql (U) Negative Negative [facility] CBC W/Diff, Automatedon Absolute Lymph 1.46 X10 3/uL Normal 0.83-4.51 [facility] Comment on above: Performed By: #### L 503.7505, L100.0100, L501.9520, L501.5200, L500.2500 ####[facility] [address] [place], [address] Absolute Neut 4.8 X10 3/uL Normal 2.0-7.7 [facility] Comment on above: Performed By: #### L 503.7505, L100.0100, L501.9520, L501.5200, L500.2500 ####[facility] [address] [place], [address] Basophils/100 WBC (Bld) 1.0 % Normal 0-1 [facility] Comment on above: Performed By: #### L 503.7505, L100.0100, L501.9520, L501.5200, L500.2500 ####[facility] [address] [place], [address] Eosinophils/100 WBC (Bld) 2.1 % Normal 0-5 [facility] Comment on above: Performed By: #### L 503.7505, L100.0100, L501.9520, L501.5200, L500.2500 ####[facility] [address] [place], [address] Erythrocyte distribution width (RBC) [Ratio] 14.6 % Normal 11.6-14.6 [facility] Comment on above: Performed By: #### L 503.7505, L100.0100, L501.9520, L501.5200, L500.2500 ####[facility] [address] [place], [address] Hematocrit (Bld) [Volume fraction] 40.4 % Normal 40-54 [facility] Comment on above: Performed By: #### L 503.7505, L100.0100, L501.9520, L501.5200, L500.2500 ####[facility] [address] [place], [address] Hemoglobin (Bld) [Mass/Vol] 13.4 g/dL Normal 13.0-16.5 [facility] Comment on above: Performed By: #### L 503.7505, L100.0100, L501.9520, L501.5200, L500.2500 ####[facility] [address] [place], [address] IG% 2.300 High 0.0-0.9 [facility] Comment on above: Result Comment: IG% - Immature Granulocytes (promyelocytes, myelocytes andmetamyelocytes) > 1% indicates that a LEFT SHIFT is Present. Performed By: #### L 503.7505, L100.0100, L501.9520, L501.5200, L500.2500 ####[facility] [address] [place], [address] Lymphocytes/100 WBC (Bld) 20.0 % Normal 19-41 [facility] Comment on above: Performed By: #### L 503.7505, L100.0100, L501.9520, L501.5200, L500.2500 ####[facility] [address] [place], [address] MCH (RBC) [Entitic mass] 32.4 pg High 27.0-32.0 [facility] Comment on above: Performed By: #### L 503.7505, L100.0100, L501.9520, L501.5200, L500.2500 ####[facility] [address] [place], [address] MCHC (RBC) [Mass/Vol] 33.2 g/dL Normal 32-36 [facility] Comment on above: Performed By: #### L 503.7505, L100.0100, L501.9520, L501.5200, L500.2500 ####[facility] [address] [place], [address] MCV (RBC) [Entitic vol] 97.6 fL High 80-94 [facility] Comment on above: Performed By: #### L 503.7505, L100.0100, L501.9520, L501.5200, L500.2500 ####[facility] [address] [place], [address] Monocytes/100 WBC (Bld) 9.5 % Normal 0-10 [facility] Comment on above: Performed By: #### L 503.7505, L100.0100, L501.9520, L501.5200, L500.2500 ####[facility] [address] [place], [address] Neutrophils/100 WBC (Bld) 65.1 % Normal 47-70 [facility] Comment on above: Performed By: #### L 503.7505, L100.0100, L501.9520, L501.5200, L500.2500 ####[facility] [address] [place], [address] Nucleated RBC (Bld) [#/Vol] 0 10*3/uL Normal 0-5 [facility] Comment on above: Performed By: #### L 503.7505, L100.0100, L501.9520, L501.5200, L500.2500 ####[facility] [address] [place], [address] Platelet mean volume (Bld) [Entitic vol] 8.8 fL Normal 6.2-12.0 [facility] Comment on above: Performed By: #### L 503.7505, L100.0100, L501.9520, L501.5200, L500.2500 ####[facility] [address] [place], [address] Platelets (Bld) [#/Vol] 233 10*3/uL Normal 150-450 [facility] Comment on above: Performed By: #### L 503.7505, L100.0100, L501.9520, L501.5200, L500.2500 ####[facility] [address] [place], [address] RBC (Bld) [#/Vol] 4.14 10*6/uL Low 4.6-6.2 [facility] Comment on above: Performed By: #### L 503.7505, L100.0100, L501.9520, L501.5200, L500.2500 ####[facility] [address] [place], [address] RDW SD 52.4 fl High 35.1-43.9 [facility] Comment on above: Performed By: #### L 503.7505, L100.0100, L501.9520, L501.5200, L500.2500 ####[facility] [address] [place], [address] WBC (Bld) [#/Vol] 7.3 10*3/uL Normal 4.4-11.0 [facility] Comment on above: Performed By: #### L 503.7505, L100.0100, L501.9520, L501.5200, L500.2500 ####[facility] [address] [place], [address] Carbon dioxide, total [Moles /volume] in Central venous bloodOrdered By: Helio Corrales on 11-19-2024 CO2 [Moles/Vol] 27.2 mmol/L 21.0-32.0 [facility] Chest PA and Lateralon 11-19 Chest PA and Lateral Normal [facility] Chloride assayOrdered By: Sharon Corrales on 11-19-2024 Chloride [Moles/Vol] 97 mmol/L Low 98-108 [facility] Emergency Department Summary on 11-19-2024 Emergency Department Summary Normal [facility] Eosinophil percentageOrdered By: Helio Corrales on 11-19-2024 Eosinophils/100 WBC (Bld) 2.1 % 0-5 [facility] Erythrocyte distribution wid th ratioOrdered By: Helio Corrales on 11-19-2024 Erythrocyte distribution width (RBC) [Ratio] 14.6 % 11.6-14.6 [facility] Erythrocyte distribution wid th standard deviationOrdered By: Helio Corrales on 11-19-2024 Erythrocyte distribution width (RBC) [Ratio] 52.4 fl High 35.1-43.9 [facility] Glomerular filtration rate ( GFR) estimation/1.73 sq m using serum, plasma, or whole bOrdered By: Helio Corrales on 11-19-2024 GFR/1.73 sq M.predicted among non-blacks MDRD (S/P/Bld) [Vol rate/Area] 37 mL/min/{1.73_m2} Low >60 [facility] Comment on above: mL/min/1.73m2 CKD-EP I Creatinine Equation (2020) Hematocrit Auto (Bld) [Volum e fraction]Ordered By: Helio Corrales on 11-19-2024 Hematocrit (Bld) [Volume fraction] 40.4 % 40-54 [facility] Hemoglobin measurementOrdere d By: Helio Corrales on 11-19-2024 Hemoglobin (Bld) [Mass/Vol] 13.4 g/dL 13.0-16.5 [facility] Immature granulocytes/100 WB C Auto (Bld)Ordered By: Helio Corrales on 11-19-2024 Immature granulocytes/100 WBC (Bld) 2.300 % High 0.0-0.9 [facility] Comment on above: IG% - Immature Granu locytes (promyelocytes, myelocytes and metamyelocytes) > 1% indicates that a LEFT SHIFT is Present. Influenza virus A and B and SARS-CoV-2 (COVID-19) and Respiratory syncytial virus RNAOrdered By: Helio Corrales on 11-19-2024 SARS-CoV-2 (COVID-19) RNA VÍCTOR+probe Ql (Unsp spec) [facility] Ketones Test strip Ql (U)Ord ered By: Helio Corrales on 11-19-2024 Ketones Ql (U) Negative Negative [facility] MCV (mean corpuscular volume ) determinationOrdered By: Helio Corrales on 11-19-2024 MCV (RBC) [Entitic vol] 97.6 fL High 80-94 [facility] Magnesium measurement (mass/ volume)Ordered By: Helio Corrales on 11-19-2024 Magnesium (Unsp spec) [Mass/Vol] 2.1 mg/dL 1.5-2.2 [facility] Mean corpuscular hemoglobin (MCH) determinationOrdered By: Helio Corrales on 11-19-2024 MCH (RBC) [Entitic mass] 32.4 pg High 27.0-32.0 [facility] Mean corpuscular hemoglobin concentration (MCHC) determinationOrdered By: Helio Corrales on 11-19-2024 MCHC (RBC) [Mass/Vol] 33.2 g/dL 32-36 [facility] Mean platelet volume determi nationOrdered By: Helio Corrales on 11-19-2024 Platelet mean volume (Bld) [Entitic vol] 8.8 fL 6.2-12.0 [facility] Microscopic analysis of urin e for red blood cells (RBC)Ordered By: Helio Corrales on 11-19-2024 Microscopic analysis of urine for red blood cells (RBC) 0 SEEN /hpf 0-5 [facility] Monocyte percentageOrdered B y: Helio Corrales on 11-19-2024 Monocytes/100 WBC (Bld) 9.5 % 0-10 [facility] Mucus LM Ql (Urine sed)Order ed By: Helio Corrales on 11-19-2024 Mucus Ql (Urine sed) 0 SEEN /hpf [facility] Natriuretic peptide.B prohor lam N-Terminal [Mass/volume] in Serum or PlasmaOrdered By: Helio Corrales on 11-19-2024 Natriuretic peptide.B prohormone N-Terminal [Mass/Vol] 521 pg/mL <1800 [facility] Comment on above: Heart Failure Unlike ly: < 300 pg/mLHeart Failure Likely< 50 Years: > 450 pg/mL50-75 Years: > 900 pg/mL>75 Years: > 1800 pg/mL Neutrophil percentageOrdered By: Helio Corrales on 11-19-2024 Neutrophils/100 WBC (Bld) 65.1 % 47-70 [facility] Nitrite Test strip Ql (U)Ord ered By: Helio Corrales on 11-19-2024 Nitrite Ql (U) Negative Negative [facility] Nucleated red blood cell per centageOrdered By: Helio Corrales on 11-19-2024 Nucleated RBC/100 WBC (Bld) [Ratio] 0 % 0-5 [facility] Platelet countOrdered By: Sharon Corrales on 11-19-2024 Platelets (Bld) [#/Vol] 233 10*3/uL 150-450 [facility] Potassium measurement (mass/ volume)Ordered By: Helio Corrales on 11-19-2024 Potassium (Unsp spec) [Mass/Vol] 4.9 mmol/L 3.3-5.1 [facility] Comment on above: Hemolysis present, R esults could be affected. Protein Test strip Ql (U)Ord ered By: Helio Corrales on 11-19-2024 Protein Ql (U) 30 mg/dl High Negative [facility] RBC Auto (Bld) [#/Vol]Ordere d By: Helio Corrales on 11-19-2024 RBC (Bld) [#/Vol] 4.14 10*6/uL Low 4.6-6.2 [facility] Serum creatinine measurement (mass/volume)Ordered By: Helio Corrales on 11-19-2024 Creatinine [Mass/Vol] 1.77 mg/dL High 0.70-1.20 [facility] Serum glucose measurement (m ass/volume)Ordered By: Helio Corrales on 11-19-2024 Glucose [Mass/Vol] 102 mg/dL High 70-99 [facility] Serum or plasma calcium odilon urement (mass/volume)Ordered By: Helio Corrales on 11-19-2024 Calcium [Mass/Vol] 10.0 mg/dL 7.6-11.0 [facility] Serum or plasma urea nitroge n measurement (mass/volume)Ordered By: Helio Corrales on 11-19-2024 Urea nitrogen [Mass/Vol] 26 mg/dL High 4-19 [facility] Sodium levelOrdered By: Soto Corrales on 11-19-2024 Sodium [Moles/Vol] 138 mmol/L 133-145 [facility] Squamous epithelial cells de tection in urine sediment by light microscopyOrdered By: Helio Corrales on 11-19-2024 Epithelial cells.squamous LM Ql (Urine sed) 0 SEEN /hpf 0-5 [facility] TSH DL <= 0.005 mIU/L QnOrde red By: Helio Corrales on 11-19-2024 TSH Qn 1.790 uIU/mL 0.300-4.200 [facility] Urinalysis, Completeon 11-19 EPI,SQUAMOUS 0 SEEN Normal 0-5 [facility] Comment on above: Order Comment: LOIS CTOR TO SPECIFY Performed By: #### M 100.678, L400.0001 ####[facility] [address] [place], [address] Mucus Ql (Urine sed) 0 SEEN Normal [facility] Comment on above: Order Comment: LOIS CTOR TO SPECIFY Performed By: #### M 100.678, L400.0001 ####[facility] [address] [place], [address] RBC 0 SEEN Normal 0-5 [facility] Comment on above: Order Comment: LOIS CTOR TO SPECIFY Performed By: #### M 100.678, L400.0001 ####[facility] [address] [place], [address] Urine clarityOrdered By: Jovany Corrales on 11-19-2024 Clarity (U) Sl. Cloudy Clear [facility] Urine color determinationOrd ered By: Helio Corrales on 11-19-2024 Color (U) Yellow Yellow [facility] Urine cultureOrdered By: Jovany Corrales on 11-19-2024 Bacteria identified Cx Nom (U) Enterobacter cloacae complex Abnormal [facility] Urine glucose detectionOrder ed By: Helio Corrales on 11-19-2024 Glucose Ql (U) Normal mg/dl Normal [facility] Urine leukocyte esterase det ection by dipstickOrdered By: Helio Corrales on 11-19-2024 Leukocyte esterase Test strip Ql (U) 500 /ul High Negative [facility] Urine pHOrdered By: Helio randle on 11-19-2024 pH (U) 6.0 [pH] 5.0 - 8.0 [facility] Urine sediment bacteria coun t by microscopy (number/high power field)Ordered By: Helio Corrales on 11-19-2024 Bacteria LM.HPF (Urine sed) [#/Area] 2 /[HPF] None Seen [facility] Urine specific gravity measu rementOrdered By: Helio Corrales on 11-19-2024 Specific gravity (U) [Rel density] 1.015 1.002-1.030 [facility] Urine urobilinogen measureme ntOrdered By: Helio Corrales on 11-19-2024 Urobilinogen Ql (U) Normal mg/dl Normal [facility] White blood cell (WBC) count Ordered By: Helio Corrales on 11-19-2024 WBC (Bld) [#/Vol] 7.3 10*3/uL 4.4-11.0 [facility] White blood cell countOrdere d By: Helio Corrales on 11-19-2024 White blood cell count 50-100 SEEN /hpf 0-5 [facility] CNOVon 09-06-2024 CNOV Office Visit (PODIWS ) OLMAN SYED ([id number]) 1935 M Date Time Provider Department 09/06/24 [...] (or decreased sensation in your feet) a meat cooler should always cut your toenails. Be Careful [...] more t (more content not included)... Normal [facility] Neurology Visit Reporton Neurology Visit Report Normal [facility] MR/BMS.IMBon 07-25-2024 MR/BMS.IMB Normal [facility] Cerv Spine 2 or 3 Viewson Cerv Spine 2 or 3 Views Normal [facility] MR/BMS.IMBon 06-24-2024 MR/BMS.IMB Normal [facility] Bedside Glucoseon 06-16-2024 FINGERSTICK GLU 219 mg/dL High 74-106 [facility] Comment on above: Result Comment: NAGI GEMENT OF PATIENT CARE PER NURSING PROTOCOL Performed By: #### L 501.080 ####[facility] [address] [facility] [address] FINGERSTICK GLU 130 mg/dL High 74-106 [facility] Comment on above: Result Comment: NAGI GEMENT OF PATIENT CARE PER NURSING PROTOCOL Performed By: #### L 501.080 ####[facility] [address] [facility] [address] Discharge Instructionon 05-20 Discharge Instruction Normal [facility] Urine Drug Screen (VISTA)on 06-16-2024 AMPHETAMINES Negative Normal <1000 ng/mL [facility] Comment on above: Order Comment: SENT LABEL TO PCU TO COLLECT Performed By: #### L 501.4020, L501.9100, L501.9520, L505.5000, L506.0250, L500.4100, L503.0105 ####[facility] [address] [place], [address] BARBITIURATES Negative Normal < 200 ng/mL [facility] Comment on above: Order Comment: SENT LABEL TO PCU TO COLLECT Performed By: #### L 501.4020, L501.9100, L501.9520, L505.5000, L506.0250, L500.4100, L503.0105 ####[facility] [address] [place], [address] BENZODIAZIPINE Negative Normal < 200 ng/mL [facility] Comment on above: Order Comment: SENT LABEL TO PCU TO COLLECT Performed By: #### L 501.4020, L501.9100, L501.9520, L505.5000, L506.0250, L500.4100, L503.0105 ####[facility] [address] [place], [address] COCAINE Negative Normal < 300 ng/mL [facility] Comment on above: Order Comment: SENT LABEL TO PCU TO COLLECT Performed By: #### L 501.4020, L501.9100, L501.9520, L505.5000, L506.0250, L500.4100, L503.0105 ####[facility] [address] [place], [place], [phone] ECSTACY Negative Normal < 500 ng/mL [facility] Comment on above: Order Comment: SENT LABEL TO PCU TO COLLECT Performed By: #### L 501.4020, L501.9100, L501.9520, L505.5000, L506.0250, L500.4100, L503.0105 ####[facility] [address] [place], [place], [phone] METHADONE Negative Normal < 300 ng/mL [facility] Comment on above: Order Comment: SENT LABEL TO PCU TO COLLECT Performed By: #### L 501.4020, L501.9100, L501.9520, L505.5000, L506.0250, L500.4100, L503.0105 ####[facility] [address] [place], [place], [phone] OPIATES Negative Normal < 300 ng/mL [facility] Comment on above: Order Comment: SENT LABEL TO PCU TO COLLECT Performed By: #### L 501.4020, L501.9100, L501.9520, L505.5000, L506.0250, L500.4100, L503.0105 ####[facility] [address] [place], [place], [phone] PCP Negative Normal < 25 ng/mL [facility] Comment on above: Order Comment: SENT LABEL TO PCU TO COLLECT Performed By: #### L 501.4020, L501.9100, L501.9520, L505.5000, L506.0250, L500.4100, L503.0105 ####[facility] [id number] [place], [place], [phone] THC Negative Normal < 50 ng/mL [facility] Comment on above: Order Comment: SENT LABEL TO PCU TO COLLECT Performed By: #### L 501.4020, L501.9100, L501.9520, L505.5000, L506.0250, L500.4100, L503.0105 ####[facility] [address] [place], [place], [id number] VISTA UDS PH 5 Normal [facility] Comment on above: Order Comment: SENT LABEL TO PCU TO COLLECT Performed By: #### L 501.4020, L501.9100, L501.9520, L505.5000, L506.0250, L500.4100, L503.0105 ####[facility] [address] [place], [place], [id number] Alcohol, Blood (Medical)-Ser umon 06-15-2024 SERUM ETOH < 3.0 Normal [facility] Comment on above: Result Comment: The serum:whole blood ethanol ratio is approximately 1.14and varies slightly with hematocrit.Medical Alcohol reference interval and critical value innon-tolerant individuals; 50 - 100 Impairment 100 Intoxication 100 - 250 Severe Poisoning 250 - 400 Deep/possible fatal coma Performed By: #### L 501.4020, L501.9100, L501.9520, L505.5000, L506.0250, L500.4100, L503.0105 ####[facility] [address] [place], [address] Bedside Glucoseon 06-15-2024 FINGERSTICK GLU 117 mg/dL High 74-106 [facility] Comment on above: Result Comment: NAGI GEMENT OF PATIENT CARE PER NURSING PROTOCOL Performed By: #### L 501.080 ####[facility] [address] [place], [address] FINGERSTICK GLU 125 mg/dL High 74-106 [facility] Comment on above: Result Comment: NAGI GEMENT OF PATIENT CARE PER NURSING PROTOCOL Performed By: #### L 501.080 ####[facility] [address] [place], [address] FINGERSTICK GLU 150 mg/dL High -106 [facility] Comment on above: Result Comment: NAGI GEMENT OF PATIENT CARE PER NURSING PROTOCOL Performed By: #### L 501.080 ####[facility] [address] [place], [address] FINGERSTICK GLU 103 mg/dL Normal -[address] [place] [address] Comment on above: Result Comment: NAGI GEMENT OF PATIENT CARE PER NURSING PROTOCOL Performed By: #### L 501.080 ####[facility] [address] [place], [address] FINGERSTICK GLU 66 mg/dL Low 74-106 [facility] Comment on above: Result Comment: NAGI GEMENT OF PATIENT CARE PER NURSING PROTOCOL Performed By: #### L 501.080 ####[facility] [address] [place], [address] FINGERSTICK GLU 69 mg/dL Low 74-106 [facility] Comment on above: Result Comment: NAGI GEMENT OF PATIENT CARE PER NURSING PROTOCOL Performed By: #### L 501.080 ####[facility] [address] [place], [address] Brain without Contraston Brain without Contrast Normal [facility] CBC W/Diff, Automatedon 12-2 ACANTHOCYTE RARE Normal [facility] Comment on above: Performed By: #### L 501.5200, L501.4020, L501.2300, L100.0100, L501.9985, L500.4050 ####[facility] [address] [place], [address] Anisocytosis Ql (Bld) 2+ Normal [facility] Comment on above: Performed By: #### L 501.5200, L501.4020, L501.2300, L100.0100, L501.9985, L500.4050 ####[facility] [address] [place], [address] CRENATED RBC 1+ Normal [facility] Comment on above: Performed By: #### L 501.5200, L501.4020, L501.2300, L100.0100, L501.9985, L500.4050 ####[facility] [address] [place], [address] MACROCYTOSIS 1+ Normal [facility] Comment on above: Performed By: #### L 501.5200, L501.4020, L501.2300, L100.0100, L501.9985, L500.4050 ####[facility] [address] [place], [address] MICROCYTIC 1+ Normal [facility] Comment on above: Performed By: #### L 501.5200, L501.4020, L501.2300, L100.0100, L501.9985, L500.4050 ####[facility] [address] [place], [address] POLYCHROMASIA 1+ Normal [facility] Comment on above: Performed By: #### L 501.5200, L501.4020, L501.2300, L100.0100, L501.9985, L500.4050 ####[facility] [address] [place], [address] SCHISTOCYTES RARE Normal [facility] Comment on above: Performed By: #### L 501.5200, L501.4020, L501.2300, L100.0100, L501.9985, L500.4050 ####[facility] [address] [place], [address] TARGET CELLS 2+ Normal [facility] Comment on above: Performed By: #### L 501.5200, L501.4020, L501.2300, L100.0100, L501.9985, L500.4050 ####[facility] [address] [place], [address] TEAR DROP 1+ Normal [facility] Comment on above: Performed By: #### L 501.5200, L501.4020, L501.2300, L100.0100, L501.9985, L500.4050 ####[facility] [address] [place], [address] SMEAR COMMENT SCANNED Normal [facility] Comment on above: Performed By: #### L 501.5200, L501.4020, L501.2300, L100.0100, L501.9985, L500.4050 ####[facility] [address] [place], [address] Anisocytosis Ql (Bld) 2+ Normal [facility] Comment on above: Performed By: #### L 100.0100, L300.4310, L300.3900 ####[facility] [address] [place], [address] HYPOCHROMASIA RARE Normal [facility] Comment on above: Performed By: #### L 100.0100, L300.4310, L300.3900 ####[facility] [address] [place], [address] PLT EST ADEQUATE Normal ADEQ [facility] Comment on above: Performed By: #### L 501.5200, L501.4020, L501.2300, L100.0100, L501.9985, L500.4050 ####[facility] [address] [place], [address] Performed By: #### L 100.0100, L300.4310, L300.3900 ####[facility] [address] [place], [address] Comprehensive Metabolic Prof ilon 06-15-2024 Albumin [Mass/Vol] 3.0 g/dL Low 3.2-5.0 [facility] Comment on above: Order Comment: Comme nts: SPECIMEN #2'TROP' Serial specimen #1, #2 or #3: 2 Performed By: #### L 501.5200, L501.4020, L501.2300, L100.0100, L501.9985, L500.4050 ####[facility] [address] [place], [address] Albumin/Globulin [Mass ratio] 1.1 {ratio} Normal 0.9-2.4 [facility] Comment on above: Order Comment: Comme nts: SPECIMEN #2'TROP' Serial specimen #1, #2 or #3: 2 Performed By: #### L 501.5200, L501.4020, L501.2300, L100.0100, L501.9985, L500.4050 ####[facility] [address] [place], [address] ALK P 50 U/L Normal 45-117 [facility] Comment on above: Order Comment: Comme nts: SPECIMEN #2'TROP' Serial specimen #1, #2 or #3: 2 Performed By: #### L 501.5200, L501.4020, L501.2300, L100.0100, L501.9985, L500.4050 ####[facility] [address] [place], [address] ALT [Catalytic activity/Vol] 7 U/L Low 16-61 [facility] Comment on above: Order Comment: Comme nts: SPECIMEN #2'TROP' Serial specimen #1, #2 or #3: 2 Performed By: #### L 501.5200, L501.4020, L501.2300, L100.0100, L501.9985, L500.4050 ####[facility] [address] [place], [address] AST [Catalytic activity/Vol] 7 U/L Low 15-37 [facility] Comment on above: Order Comment: Comme nts: SPECIMEN #2'TROP' Serial specimen #1, #2 or #3: 2 Performed By: #### L 501.5200, L501.4020, L501.2300, L100.0100, L501.9985, L500.4050 ####[facility] [address] [place], [address] Bilirubin [Mass/Vol] 0.70 mg/dL Normal 0.20-1.00 [facility] Comment on above: Order Comment: Comme nts: SPECIMEN #2'TROP' Serial specimen #1, #2 or #3: 2 Result Comment: For patients on eltrombopag therapy, use of Dimension Victoria TBIL is not recommended. Performed By: #### L 501.5200, L501.4020, L501.2300, L100.0100, L501.9985, L500.4050 ####[facility] [address] [place], [address] BUN/CRE 12.4 RATIO Normal 10-20 [facility] Comment on above: Order Comment: Comme nts: SPECIMEN #2'TROP' Serial specimen #1, #2 or #3: 2 Performed By: #### L 501.5200, L501.4020, L501.2300, L100.0100, L501.9985, L500.4050 ####[facility] [address] [place], [address] CA,Total 8.9 mg/dL Normal 8.5-10.1 [facility] Comment on above: Order Comment: Comme nts: SPECIMEN #2'TROP' Serial specimen #1, #2 or #3: 2 Performed By: #### L 501.5200, L501.4020, L501.2300, L100.0100, L501.9985, L500.4050 ####[facility] [address] [place], [address] Chloride [Moles/Vol] 102 mmol/L Normal 98-107 [facility] Comment on above: Order Comment: Comme nts: SPECIMEN #2'TROP' Serial specimen #1, #2 or #3: 2 Performed By: #### L 501.5200, L501.4020, L501.2300, L100.0100, L501.9985, L500.4050 ####[facility] [address] [place], [address] CO2 [Moles/Vol] 29.0 mmol/L Normal 21.0-32.0 [facility] Comment on above: Order Comment: Comme nts: SPECIMEN #2'TROP' Serial specimen #1, #2 or #3: 2 Performed By: #### L 501.5200, L501.4020, L501.2300, L100.0100, L501.9985, L500.4050 ####[facility] [address] [place], [address] Creatinine [Mass/Vol] 2.25 mg/dL High 0.70-1.30 [facility] Comment on above: Order Comment: Comme nts: SPECIMEN #2'TROP' Serial specimen #1, #2 or #3: 2 Result Comment: The validity of the calculated GFR GFRAA in patients over70 years has not been determined. Clinical correlation isessential. Performed By: #### L 501.5200, L501.4020, L501.2300, L100.0100, L501.9985, L500.4050 ####[facility] [address] [place], [address] ECRCL 27.67 ml/min Normal [facility] Comment on above: Order Comment: Comme nts: SPECIMEN #2'TROP' Serial specimen #1, #2 or #3: 2 Performed By: #### L 501.5200, L501.4020, L501.2300, L100.0100, L501.9985, L500.4050 ####[facility] [address] [place], [address] EST GFR - AA 36 mL/min Low >60 [facility] Comment on above: Order Comment: Comme nts: SPECIMEN #2'TROP' Serial specimen #1, #2 or #3: 2 Result Comment: Afri can Dominican GFR Calc Performed By: #### L 501.5200, L501.4020, L501.2300, L100.0100, L501.9985, L500.4050 ####[facility] [address] [place], [address] GAP 6 Normal 5-15 [facility] Comment on above: Order Comment: Comme nts: SPECIMEN #2'TROP' Serial specimen #1, #2 or #3: 2 Performed By: #### L 501.5200, L501.4020, L501.2300, L100.0100, L501.9985, L500.4050 ####[facility] [address] [place], [address] GFR/1.73 sq M.predicted among non-blacks MDRD (S/P/Bld) [Vol rate/Area] 30 mL/min/{1.73_m2} Low >60 [facility] Comment on above: Order Comment: Comme nts: SPECIMEN #2'TROP' Serial specimen #1, #2 or #3: 2 Result Comment: Non- GFR Calc Performed By: #### L 501.5200, L501.4020, L501.2300, L100.0100, L501.9985, L500.4050 ####[facility] [address] [place], [address] Globulin (S) [Mass/Vol] 2.7 g/dL Normal 2.2-4.2 [facility] Comment on above: Order Comment: Comme nts: SPECIMEN #2'TROP' Serial specimen #1, #2 or #3: 2 Performed By: #### L 501.5200, L501.4020, L501.2300, L100.0100, L501.9985, L500.4050 ####[facility] [address] [place], [address] Glucose [Mass/Vol] 80 mg/dL Normal 74-106 [facility] Comment on above: Order Comment: Comme nts: SPECIMEN #2'TROP' Serial specimen #1, #2 or #3: 2 Performed By: #### L 501.5200, L501.4020, L501.2300, L100.0100, L501.9985, L500.4050 ####[facility] [address] [place], [address] Potassium [Moles/Vol] 3.5 mmol/L Normal 3.5-5.1 [facility] Comment on above: Order Comment: Comme nts: SPECIMEN #2'TROP' Serial specimen #1, #2 or #3: 2 Performed By: #### L 501.5200, L501.4020, L501.2300, L100.0100, L501.9985, L500.4050 ####[facility] [address] [place], [address] Sodium [Moles/Vol] 137 mmol/L Normal 136-145 [facility] Comment on above: Order Comment: Comme nts: SPECIMEN #2'TROP' Serial specimen #1, #2 or #3: 2 Performed By: #### L 501.5200, L501.4020, L501.2300, L100.0100, L501.9985, L500.4050 ####[facility] [address] [place], [address] T PROT 5.7 g/dL Low 6.4-8.2 [facility] Comment on above: Order Comment: Comme nts: SPECIMEN #2'TROP' Serial specimen #1, #2 or #3: 2 Performed By: #### L 501.5200, L501.4020, L501.2300, L100.0100, L501.9985, L500.4050 ####[facility] [address] [facility] [place], [address] Urea nitrogen [Mass/Vol] 28 mg/dL High 7-18 [facility] Comment on above: Order Comment: Comme nts: SPECIMEN #2'TROP' Serial specimen #1, #2 or #3: 2 Performed By: #### L 501.5200, L501.4020, L501.2300, L100.0100, L501.9985, L500.4050 ####[facility] [address] [facility] [place], [address] Echo Complete W/ Contraston 06-15-2024 Echo Complete W/ Contrast Normal [facility] Emergency Department Summary on 06-15-2024 Emergency Department Summary Normal [facility] Folates, (Folic Acid)on 05-20 FOLATES 8.00 ng/mL Normal 3.1-55.4 [facility] Comment on above: Order Comment: Has P atient had X-rays with Contrast this admission? N'TROP' Serial specimen #1, #2 or #3: 1Y Performed By: #### L 501.4020, L501.9100, L501.9520, L505.5000, L506.0250, L500.4100, L503.0105 ####[facility] [address] [place], [address] H AND P Exam - Hospitaliston 06-15-2024 H&P Exam - Hospitalist Normal [facility] Hemoglobin A1con 06-15-2024 HbA1c (Bld) [Mass fraction] 6.2 % High 3.8-5.6 [facility] Comment on above: Result Comment: Norm al < 5.7 % Prediabetic 5.7 - 6.4 % Diabetic >or= 6.5 % Please note range changes. Performed By: #### L 501.5200, L501.4020, L501.2300, L100.0100, L501.9985, L500.4050 ####[facility] [address] [place], [address] L501.4020on 06-15-2024 TROPONIN-I HS 33 pg/mL Normal 3.0-78.0 [facility] Comment on above: Order Comment: Comme nts: SPECIMEN #3'TROP' Serial specimen #1, #2 or #3: 3 Result Comment: Plea se Note: New Test Units and Gender Specific Reference Ranges. For more information see Policy Stat Procedure [place] High Sensitivity Troponin (TNIH) and attachments. Performed By: #### L 501.4020 ####[facility] [address] [place], [address] TROPONIN-I HS 31 pg/mL Normal 3.0-78.0 [facility] Comment on above: Order Comment: Comme nts: SPECIMEN #2'TROP' Serial specimen #1, #2 or #3: 2 Result Comment: Plea se Note: New Test Units and Gender Specific Reference Ranges. For more information see Policy Stat Procedure Victoria High Sensitivity Troponin (TNIH) and attachments. Performed By: #### L 501.5200, L501.4020, L501.2300, L100.0100, L501.9985, L500.4050 ####[facility] [address] [place], [address] TROPONIN-I HS 35 pg/mL Normal 3.0-78.0 [facility] Comment on above: Order Comment: Has Manda chavez had X-rays with Contrast this admission? N'TROP' Serial specimen #1, #2 or #3: 1Y Result Comment: Loly varela Note: New Test Units and Gender Specific Reference Ranges. For more information see Policy Stat Procedure Victoria High Sensitivity Troponin (TNIH) and attachments. Performed By: #### L 501.4020, L501.9100, L501.9520, L505.5000, L506.0250, L500.4100, L503.0105 ####[facility] [address] [place], [address] Lipid Profileon 06-15-2024 Cholesterol [Mass/Vol] 148 mg/dL Normal 200 [facility] Comment on above: Order Comment: Has Manda chavez had X-rays with Contrast this admission? N'TROP' Serial specimen #1, #2 or #3: 1Y Result Comment: <200 mg/dL Desirable 200-240 mg/dL Borderline >240 mg/dL High Risk Performed By: #### L 501.4020, L501.9100, L501.9520, L505.5000, L506.0250, L500.4100, L503.0105 ####[facility] [address] [place], [place], [address](460) Cholesterol in HDL [Mass/Vol] 46 mg/dL Normal [facility] Comment on above: Order Comment: Has Manda chavez had X-rays with Contrast this admission? N'TROP' Serial specimen #1, #2 or #3: 1Y Result Comment: The drugs N-Acetylcysteine and Metamizole may falselydepress this assay. Reference Range HDL <40 mg/dL Low HDL Cholesterol HDL >or= 60 mg/dL High HDL Cholesterol Performed By: #### L 501.4020, L501.9100, L501.9520, L505.5000, L506.0250, L500.4100, L503.0105 ####[facility] [address] [place], [address] Cholesterol in LDL [Mass/Vol] 64 mg/dL Normal 0-130 [facility] Comment on above: Order Comment: Has Manda chavez had X-rays with Contrast this admission? N'TROP' Serial specimen #1, #2 or #3: 1Y Performed By: #### L 501.4020, L501.9100, L501.9520, L505.5000, L506.0250, L500.4100, L503.0105 ####[facility] [address] [place], [address] Cholesterol in VLDL [Mass/Vol] 38 mg/dL Normal 5-40 [facility] Comment on above: Order Comment: Has Manda chavez had X-rays with Contrast this admission? N'TROP' Serial specimen #1, #2 or #3: 1Y Performed By: #### L 501.4020, L501.9100, L501.9520, L505.5000, L506.0250, L500.4100, L503.0105 ####[facility] [address] [place], [address] Triglyceride [Mass/Vol] 189 mg/dL Normal [facility] Comment on above: Order Comment: Has [...] 501.4020, L501.9100, L501.9520, L505.5000, L506.0250, L500.4100, L503.0105 ####[facility] [address] [place], [address] Magnesiumon 06-15-2024 Magnesium [Mass/Vol] 1.7 mg/dL Normal 1.6-2.6 [facility] Comment on above: Order Comment: Comme nts: SPECIMEN #2'TROP' Serial specimen #1, #2 or #3: 2 Performed By: #### L 501.5200, L501.4020, L501.2300, L100.0100, L501.9985, L500.4050 ####[facility] [address] [place], [address] Partial Thromboplast Timeon 06-15-2024 aPTT Coag (Bld) [Time] 26.1 s Normal 24.1-36.2 [facility] Comment on above: Performed By: #### L 100.0100, L300.4310, L300.3900 ####[facility] [address] [place], [address] Phosphoruson 06-15-2024 Phosphate [Mass/Vol] 4.3 mg/dL Normal 2.5-4.9 [facility] Comment on above: Order Comment: Comme nts: SPECIMEN #2'TROP' Serial specimen #1, #2 or #3: 2 Performed By: #### L 501.5200, L501.4020, L501.2300, L100.0100, L501.9985, L500.4050 ####[facility] [address] [place], [address] Prothrombin Time w/INRon INR Coag (PPP) [Relative time] 1.2 {INR} Normal [facility] Comment on above: Performed By: #### L 100.0100, L300.4310, L300.3900 ####[facility] [address] [place], [address] PT Coag (PPP) [Time] 15.0 s High 11.7-14.9 [facility] Comment on above: Performed By: #### L 100.0100, L300.4310, L300.3900 ####[facility] [address] [place], [address] Thyroid Stim Hormone (TSH)on 06-15-2024 TSH 3.230 uIU/mL Normal 0.358-3.740 [facility] Comment on above: Order Comment: Has Manda chavez had X-rays with Contrast this admission? N'TROP' Serial specimen #1, #2 or #3: 1Y Performed By: #### L 501.4020, L501.9100, L501.9520, L505.5000, L506.0250, L500.4100, L503.0105 ####[facility] [address] [place], [address] Vitamin B12on 06-15-2024 Cobalamin (Vitamin B12) [Mass/Vol] pg/mL High 211-911 [facility] Comment on above: Performed By: #### L 501.4020, L501.9100, L501.9520, L505.5000, L506.0250, L500.4100, L503.0105 ####[facility] [address] [place], [address] 12 Lead EKGon 06-14-2024 12 Lead EKG Normal [facility] Basic Metabolic Profile (BMP )on 06-14-2024 BUN/CRE 11.6 RATIO Normal 10-20 [facility] Comment on above: Performed By: #### L 500.2500, L501.5200 ####[facility] [address] [place], [address] CA,Total 9.5 mg/dL Normal 8.5-10.1 [facility] Comment on above: Performed By: #### L 500.2500, L501.5200 ####[facility] [address] [place], [address] Chloride [Moles/Vol] 102 mmol/L Normal 98-107 [facility] Comment on above: Performed By: #### L 500.2500, L501.5200 ####[facility] [address] [place], [address] CO2 [Moles/Vol] 21.0 mmol/L Normal 21.0-32.0 [facility] Comment on above: Performed By: #### L 500.2500, L501.5200 ####[facility] [address] [place], [address] Creatinine [Mass/Vol] 2.25 mg/dL High 0.70-1.30 [facility] Comment on above: Result Comment: The validity of the calculated GFR GFRAA in patients over70 years has not been determined. Clinical correlation isessential. Performed By: #### L 500.2500, L501.5200 ####[facility] [address] [place], [address] ECRCL 25.79 ml/min Normal [facility] Comment on above: Performed By: #### L 500.2500, L501.5200 ####[facility] [address] [place], [address] EST GFR - AA 36 mL/min Low >60 [facility] Comment on above: Result Comment: Afri can Dominican GFR Calc Performed By: #### L 500.2500, L501.5200 ####[facility] [address] [place], [address] GAP 14 Normal 5-15 [facility] Comment on above: Performed By: #### L 500.2500, L501.5200 ####[facility] [address] [place], [address] GFR/1.73 sq M.predicted among non-blacks MDRD (S/P/Bld) [Vol rate/Area] 30 mL/min/{1.73_m2} Low >60 [facility] Comment on above: Result Comment: Non- GFR Calc Performed By: #### L 500.2500, L501.5200 ####[facility] [address] [place], [address] Glucose [Mass/Vol] 120 mg/dL High 74-106 [facility] Comment on above: Result Comment: Fast ing Glucose result from 100 to 125 mg/dLsuggests IMPAIRED HOMEOSTASIS per A.D.A. criteria. Performed By: #### L 500.2500, L501.5200 ####[facility] [address] [place], [address] Potassium [Moles/Vol] 3.9 mmol/L Normal 3.5-5.1 [facility] Comment on above: Result Comment: Slig ht Hemolysis, Result may be falsely increased. Performed By: #### L 500.2500, L501.5200 ####[facility] [address] [place], [address] Sodium [Moles/Vol] 136 mmol/L Normal 136-145 [facility] Comment on above: Performed By: #### L 500.2500, L501.5200 ####[facility] [address] [place], [address] Urea nitrogen [Mass/Vol] 26 mg/dL High 7-18 [facility] Comment on above: Performed By: #### L 500.2500, L501.5200 ####[facility] [address] [place], [address] Brain/Head without Contrasto n 06-14-2024 Brain/Head without Contrast Normal [facility] Magnesiumon 06-14-2024 Magnesium [Mass/Vol] 1.8 mg/dL Normal 1.6-2.6 [facility] Comment on above: Result Comment: Slig ht Hemolysis, Result may be falsely increased. Performed By: #### L 500.2500, L501.5200 ####[facility] [address] [place], [address] CNOVon 06-06-2024 CNOV Office Visit (PODIWS ) OLMAN SYED ([id number]) 1935 M Date Time Provider Department 06/06/24 [...] (or decreased sensation in your feet) a meat cooler should always cut your toenails. Be Careful [...] Go to your health care provider or meat cooler to treat these conditions. Barbie Nova 07/20/2024 [...] DP and (more content not included)... Normal [facility] MR/BMS.IMBon 05-20-2024 MR/BMS.IMB Normal [facility] CBC W/Diff, Automatedon 11- Absolute Lymph 1.31 X10 3/uL Normal 0.83-4.51 [facility] Comment on above: Performed By: #### L 501.58920, L501.9910, L501.9985, L501.9520, L500.4100, L500.4050, L503.0105, L506.0400, L501.5200, L100.0100 ####[facility] [address] [place], [place], [id number] Absolute Neut 3.7 X10 3/uL Normal 2.0-7.7 [facility] Comment on above: Performed By: #### L 501.84335, L501.9910, L501.9985, L501.9520, L500.4100, L500.4050, L503.0105, L506.0400, L501.5200, L100.0100 ####[facility] [address] [place], [place], [id number] Basophils/100 WBC (Bld) 0.9 % Normal 0-1 [facility] Comment on above: Performed By: #### L 501.40781, L501.9910, L501.9985, L501.9520, L500.4100, L500.4050, L503.0105, L506.0400, L501.5200, L100.0100 ####[facility] [address] [place], [place], [phone] Eosinophils/100 WBC (Bld) 8.9 % High 0-5 [facility] Comment on above: Performed By: #### L 501.72792, L501.9910, L501.9985, L501.9520, L500.4100, L500.4050, L503.0105, L506.0400, L501.5200, L100.0100 ####[facility] [address] [place], [place], [phone] Erythrocyte distribution width (RBC) [Ratio] 19.1 % High 11.6-14.6 [facility] Comment on above: Performed By: #### L 501.82151, L501.9910, L501.9985, L501.9520, L500.4100, L500.4050, L503.0105, L506.0400, L501.5200, L100.0100 ####[facility] [address] [place], [phone] Hematocrit (Bld) [Volume fraction] 32.2 % Low 40-54 [facility] Comment on above: Performed By: #### L 501.38581, L501.9910, L501.9985, L501.9520, L500.4100, L500.4050, L503.0105, L506.0400, L501.5200, L100.0100 ####[facility] [address] [place], [place], [phone] Hemoglobin (Bld) [Mass/Vol] 9.9 g/dL Low 13.0-16.5 [facility] Comment on above: Performed By: #### L 501.44590, L501.9910, L501.9985, L501.9520, L500.4100, L500.4050, L503.0105, L506.0400, L501.5200, L100.0100 ####[facility] [address] [place], [place], [phone] IG% 0.800 Normal 0.0-0.9 [facility] Comment on above: Result Comment: IG% - Immature Granulocytes (promyelocytes, myelocytes andmetamyelocytes) > 1% indicates that a LEFT SHIFT is Present. Performed By: #### L 501.31026, L501.9910, L501.9985, L501.9520, L500.4100, L500.4050, L503.0105, L506.0400, L501.5200, L100.0100 ####[facility] [address] [place], [address] Lymphocytes/100 WBC (Bld) 20.4 % Normal 19-41 [facility] Comment on above: Performed By: #### L 501.76497, L501.9910, L501.9985, L501.9520, L500.4100, L500.4050, L503.0105, L506.0400, L501.5200, L100.0100 ####[facility] [address] [place], [address] MCH (RBC) [Entitic mass] 24.3 pg Low 27.0-32.0 [facility] Comment on above: Performed By: #### L 501.01603, L501.9910, L501.9985, L501.9520, L500.4100, L500.4050, L503.0105, L506.0400, L501.5200, L100.0100 ####[facility] [address] [place], [address] MCHC (RBC) [Mass/Vol] 30.7 g/dL Low 32-36 [facility] Comment on above: Performed By: #### L 501.61449, L501.9910, L501.9985, L501.9520, L500.4100, L500.4050, L503.0105, L506.0400, L501.5200, L100.0100 ####[facility] [address] [place], [place], [phone] MCV (RBC) [Entitic vol] 79.1 fL Low 80-94 [facility] Comment on above: Performed By: #### L 501.25965, L501.9910, L501.9985, L501.9520, L500.4100, L500.4050, L503.0105, L506.0400, L501.5200, L100.0100 ####[facility] [address] [place], [address] Monocytes/100 WBC (Bld) 11.5 % High 0-10 [facility] Comment on above: Performed By: #### L 501.62347, L501.9910, L501.9985, L501.9520, L500.4100, L500.4050, L503.0105, L506.0400, L501.5200, L100.0100 ####[facility] [address] [place], [address] Neutrophils/100 WBC (Bld) 57.5 % Normal 47-70 [facility] Comment on above: Performed By: #### L 501.41532, L501.9910, L501.9985, L501.9520, L500.4100, L500.4050, L503.0105, L506.0400, L501.5200, L100.0100 ####[facility] [address] [place], [place], [phone]) Nucleated RBC (Bld) [#/Vol] 0 10*3/uL Normal 0-5 [facility] Comment on above: Performed By: #### L 501.99615, L501.9910, L501.9985, L501.9520, L500.4100, L500.4050, L503.0105, L506.0400, L501.5200, L100.0100 ####[facility] [address] [place], [address] Platelet mean volume (Bld) [Entitic vol] 8.9 fL Normal 6.2-12.0 [facility] Comment on above: Performed By: #### L 501.87457, L501.9910, L501.9985, L501.9520, L500.4100, L500.4050, L503.0105, L506.0400, L501.5200, L100.0100 ####[facility] [address] [place], [place], [phone]) Platelets (Bld) [#/Vol] 281 10*3/uL Normal 150-450 [facility] Comment on above: Performed By: #### L 501.41873, L501.9910, L501.9985, L501.9520, L500.4100, L500.4050, L503.0105, L506.0400, L501.5200, L100.0100 ####[facility] [address] [place], [place], [phone] RBC (Bld) [#/Vol] 4.07 10*6/uL Low 4.6-6.2 [facility] Comment on above: Performed By: #### L 501.37765, L501.9910, L501.9985, L501.9520, L500.4100, L500.4050, L503.0105, L506.0400, L501.5200, L100.0100 ####[facility] [address] [place], [place], [phone] RDW SD 54.7 fl High 35.1-43.9 [facility] Comment on above: Performed By: #### L 501.01915, L501.9910, L501.9985, L501.9520, L500.4100, L500.4050, L503.0105, L506.0400, L501.5200, L100.0100 ####[facility] [address] [place], [place], [phone] WBC (Bld) [#/Vol] 6.4 10*3/uL Normal 4.4-11.0 [facility] Comment on above: Performed By: #### L 501.14749, L501.9910, L501.9985, L501.9520, L500.4100, L500.4050, L503.0105, L506.0400, L501.5200, L100.0100 ####[facility] [address] [place], [place], [phone] Comprehensive Metabolic Prof gaon 05-09-2024 Albumin [Mass/Vol] 3.8 g/dL Normal 3.2-5.0 [facility] Comment on above: Performed By: #### L 501.60522, L501.9910, L501.9985, L501.9520, L500.4100, L500.4050, L503.0105, L506.0400, L501.5200, L100.0100 ####[facility] [address] [place], [place], [phone] Albumin/Globulin [Mass ratio] 1.2 {ratio} Normal 0.9-2.4 [facility] Comment on above: Performed By: #### L 501.24451, L501.9910, L501.9985, L501.9520, L500.4100, L500.4050, L503.0105, L506.0400, L501.5200, L100.0100 ####[facility] [address] [place], [address] ALK P 46 U/L Normal 45-117 [facility] Comment on above: Performed By: #### L 501.97986, L501.9910, L501.9985, L501.9520, L500.4100, L500.4050, L503.0105, L506.0400, L501.5200, L100.0100 ####[facility] [address] [place], [address] ALT [Catalytic activity/Vol] 10 U/L Low 16-61 [facility] Comment on above: Performed By: #### L 501.91999, L501.9910, L501.9985, L501.9520, L500.4100, L500.4050, L503.0105, L506.0400, L501.5200, L100.0100 ####[facility] [address] [place], [address] AST [Catalytic activity/Vol] 6 U/L Low 15-37 [facility] Comment on above: Performed By: #### L 501.68308, L501.9910, L501.9985, L501.9520, L500.4100, L500.4050, L503.0105, L506.0400, L501.5200, L100.0100 ####[facility] [address] [place], [address] Bilirubin [Mass/Vol] 0.70 mg/dL Normal 0.20-1.00 [facility] Comment on above: Result Comment: For patients on eltrombopag therapy, use of Dimension Victoria TBIL is not recommended. Performed By: #### L 501.99600, L501.9910, L501.9985, L501.9520, L500.4100, L500.4050, L503.0105, L506.0400, L501.5200, L100.0100 ####[facility] [address] [place], [place], [phone] BUN/CRE 11.9 RATIO Normal 10-20 [facility] Comment on above: Performed By: #### L 501.63678, L501.9910, L501.9985, L501.9520, L500.4100, L500.4050, L503.0105, L506.0400, L501.5200, L100.0100 ####[facility] [address] [place], [place], [phone] CA,Total 9.7 mg/dL Normal 8.5-10.1 [facility] Comment on above: Performed By: #### L 501.02211, L501.9910, L501.9985, L501.9520, L500.4100, L500.4050, L503.0105, L506.0400, L501.5200, L100.0100 ####[facility] [address] [place], [place], [phone] Chloride [Moles/Vol] 105 mmol/L Normal 98-107 [facility] Comment on above: Performed By: #### L 501.32441, L501.9910, L501.9985, L501.9520, L500.4100, L500.4050, L503.0105, L506.0400, L501.5200, L100.0100 ####[facility] [address] [place], [place], [phone] CO2 [Moles/Vol] 25.0 mmol/L Normal 21.0-32.0 [facility] Comment on above: Performed By: #### L 501.01362, L501.9910, L501.9985, L501.9520, L500.4100, L500.4050, L503.0105, L506.0400, L501.5200, L100.0100 ####[facility] [address] [place], [address] Creatinine [Mass/Vol] 1.68 mg/dL High 0.70-1.30 [facility] Comment on above: Result Comment: The validity of the calculated GFR GFRAA in patients over70 years has not been determined. Clinical correlation isessential. Performed By: #### L 501.44266, L501.9910, L501.9985, L501.9520, L500.4100, L500.4050, L503.0105, L506.0400, L501.5200, L100.0100 ####[facility] [address] [place], [address] EST GFR - AA 50 mL/min Low >60 [facility] Comment on above: Result Comment: Afri can Dominican GFR Calc Performed By: #### L 501.44803, L501.9910, L501.9985, L501.9520, L500.4100, L500.4050, L503.0105, L506.0400, L501.5200, L100.0100 ####[facility] [address] [place], [address] GAP 11 Normal 5-15 [facility] Comment on above: Performed By: #### L 501.02343, L501.9910, L501.9985, L501.9520, L500.4100, L500.4050, L503.0105, L506.0400, L501.5200, L100.0100 ####[facility] [address] [place], [address] GFR/1.73 sq M.predicted among non-blacks MDRD (S/P/Bld) [Vol rate/Area] 41 mL/min/{1.73_m2} Low >60 [facility] Comment on above: Result Comment: Non- GFR Calc Performed By: #### L 501.22204, L501.9910, L501.9985, L501.9520, L500.4100, L500.4050, L503.0105, L506.0400, L501.5200, L100.0100 ####[facility] [address] [place], [address] Globulin (S) [Mass/Vol] 3.2 g/dL Normal 2.2-4.2 [facility] Comment on above: Performed By: #### L 501.66012, L501.9910, L501.9985, L501.9520, L500.4100, L500.4050, L503.0105, L506.0400, L501.5200, L100.0100 ####[facility] [address] [place], [address] Glucose [Mass/Vol] 94 mg/dL Normal 74-106 [facility] Comment on above: Performed By: #### L 501.83567, L501.9910, L501.9985, L501.9520, L500.4100, L500.4050, L503.0105, L506.0400, L501.5200, L100.0100 ####[facility] [address] [place], [address] Potassium [Moles/Vol] 3.4 mmol/L Low 3.5-5.1 [facility] Comment on above: Performed By: #### L 501.36606, L501.9910, L501.9985, L501.9520, L500.4100, L500.4050, L503.0105, L506.0400, L501.5200, L100.0100 ####[facility] [address] [place], [address] Sodium [Moles/Vol] 141 mmol/L Normal 136-145 [facility] Comment on above: Performed By: #### L 501.73505, L501.9910, L501.9985, L501.9520, L500.4100, L500.4050, L503.0105, L506.0400, L501.5200, L100.0100 ####[facility] [address] [place], [address] T PROT 7.0 g/dL Normal 6.4-8.2 [facility] Comment on above: Performed By: #### L 501.51403, L501.9910, L501.9985, L501.9520, L500.4100, L500.4050, L503.0105, L506.0400, L501.5200, L100.0100 ####[facility] [address] [place], [place], [phone] Urea nitrogen [Mass/Vol] 20 mg/dL High 01-03 [facility] Comment on above: Performed By: #### L 501.91755, L501.9910, L501.9985, L501.9520, L500.4100, L500.4050, L503.0105, L506.0400, L501.5200, L100.0100 ####[facility] [address] [place], [address] Free T3on 05-09-2024 Free T3 [Mass/Vol] 2.5 pg/mL Normal 2.18-3.98 [facility] Comment on above: Performed By: #### L 501.27756, L501.9910, L501.9985, L501.9520, L500.4100, L500.4050, L503.0105, L506.0400, L501.5200, L100.0100 ####[facility] [address] [place], [place], [address] Hemoglobin A1con 05-09-2024 HbA1c (Bld) [Mass fraction] 6.6 % High 3.8-5.6 [facility] Comment on above: Result Comment: Norm al < 5.7 % Prediabetic 5.7 - 6.4 % Diabetic >or= 6.5 % Please note range changes. Performed By: #### L 501.01243, L501.9910, L501.9985, L501.9520, L500.4100, L500.4050, L503.0105, L506.0400, L501.5200, L100.0100 ####[facility] [address] [place], [address] Iron+Iron Binding Capacityon 05-09-2024 Iron [Mass/Vol] 28 ug/dL Low 65-175 [facility] Comment on above: Performed By: #### L 503.6030 ####[facility] [address] [place], [address] IRON SATURATION 6.2 Low 15.0-55.0 [facility] Comment on above: Performed By: #### L 503.6030 ####[facility] [address] [place], [address] TIBC 454 ug/dL High 250-450 [facility] Comment on above: Performed By: #### L 503.6030 ####[facility] [address] [place], [address] Lipid Profileon 05-09-2024 Cholesterol [Mass/Vol] 143 mg/dL Normal 200 [facility] Comment on above: Result Comment: <200 mg/dL Desirable 200-240 mg/dL Borderline >240 mg/dL High Risk Performed By: #### L 501.46246, L501.9910, L501.9985, L501.9520, L500.4100, L500.4050, L503.0105, L506.0400, L501.5200, L100.0100 ####[facility] [address] [place], [address] Cholesterol in HDL [Mass/Vol] 46 mg/dL Normal [facility] Comment on above: Result Comment: The drugs N-Acetylcysteine and Metamizole may falselydepress this assay. Reference Range HDL <40 mg/dL Low HDL Cholesterol HDL >or= 60 mg/dL High HDL Cholesterol Performed By: #### L 501.99412, L501.9910, L501.9985, L501.9520, L500.4100, L500.4050, L503.0105, L506.0400, L501.5200, L100.0100 ####[facility] [address] [place], [address] Cholesterol in LDL [Mass/Vol] 68 mg/dL Normal 0-130 [facility] Comment on above: Performed By: #### L 501.62499, L501.9910, L501.9985, L501.9520, L500.4100, L500.4050, L503.0105, L506.0400, L501.5200, L100.0100 ####[facility] [address] [place], [place], [phone] Cholesterol in VLDL [Mass/Vol] 29 mg/dL Normal 5-40 [facility] Comment on above: Performed By: #### L 501.83227, L501.9910, L501.9985, L501.9520, L500.4100, L500.4050, L503.0105, L506.0400, L501.5200, L100.0100 ####[facility] [address] [place], [place], [phone] Triglyceride [Mass/Vol] 144 mg/dL Normal [facility] Comment on above: Result Comment: The drugs N-Acetylcysteine and Metamizole may falselydepress this assay.Serum Triglycerides Reference Interval Normal <150 mg/dL Borderline high 150 - 199 mg/dL High 200 - 499 mg/dL Very High > or = 500 mg/dL Performed By: #### L 501.51615, L501.9910, L501.9985, L501.9520, L500.4100, L500.4050, L503.0105, L506.0400, L501.5200, L100.0100 ####[facility] [address] [place], [place], [phone] Magnesiumon 05-09-2024 Magnesium [Mass/Vol] 1.8 mg/dL Normal 1.6-2.6 [facility] Comment on above: Performed By: #### L 501.26732, L501.9910, L501.9985, L501.9520, L500.4100, L500.4050, L503.0105, L506.0400, L501.5200, L100.0100 ####[facility] [address] [place], [place], [phone] PSA,Total - Annual Screenon 05-09-2024 PSA,TOT SCREEN 1.04 ng/mL Normal 0.00-4.00 [facility] Comment on above: Result Comment: This test was performed using the TPSA assay method for [employer] chemistry system. Values obtained with differentassay methods cannot be used interchangably.When changing PSA assays in the course of monitoring apatient, additional sequential testing should be carriedout to confirm baseline values. Performed By: #### L 501.72609, L501.9910, L501.9985, L501.9520, L500.4100, L500.4050, L503.0105, L506.0400, L501.5200, L100.0100 ####[facility] [address] [place], [place], [phone] T4 Free Directon 05-09-2024 T4 FREE DIRECT 0.91 ng/dL Normal 0.76-1.46 [facility] Comment on above: Performed By: #### L 501.32973, L501.9910, L501.9985, L501.9520, L500.4100, L500.4050, L503.0105, L506.0400, L501.5200, L100.0100 ####[facility] [address] [place], [place], [phone] Thyroid Stim Hormone (TSH)on 05-09-2024 TSH 2.880 uIU/mL Normal 0.358-3.740 [facility] Comment on above: Performed By: #### L 501.72469, L501.9910, L501.9985, L501.9520, L500.4100, L500.4050, L503.0105, L506.0400, L501.5200, L100.0100 ####[facility] [address] [place], [place], [phone] Vitamin B12on 05-09-2024 Cobalamin (Vitamin B12) [Mass/Vol] pg/mL High 211-911 [facility] Comment on above: Performed By: #### L 501.68779, L501.9910, L501.9985, L501.9520, L500.4100, L500.4050, L503.0105, L506.0400, L501.5200, L100.0100 ####[facility] [address] [place], [place], [phone] Office Visit Reporton 2023 Office Visit Report Normal [facility] Neurology Visit Reporton Neurology Visit Report Normal [facility] Pulmonary Visit Reporton Pulmonary Visit Report Normal [facility] Cardiology Visit Reporton Cardiology Visit Report Normal [facility] MR/BMS.IMBon 03-07-2024 MR/BMS.IMB Normal [facility] CNOVon 02-29-2024 CNOV Office Visit (PODIWS ) OLMAN SYED ([id number]) 1935 M Date Time Provider Department 02/29/24 [...] Objective: Patient presents to clinic ambulating in [facility] Vasc: DP and PT pulses [...] Barbie Nova DPM Referring Provider: BARBIE NOVA [[id number]] Allergies As of Date: 02/29/2024 Noted Allergy [...] Inhale 2 (more content not included)... Normal [facility] Re-Evaluation - PT (1)on Re-Evaluation - PT (1) Normal [facility] Inital Evaluation (1) - PTon 01-19-2024 Inital Evaluation (1) - PT Normal [facility] Office Visit Reporton 2023 Office Visit Report Normal [facility] L/S Spine Comp/w Bending Vie wson 01-10-2024 L/S Spine Comp/w Bending Views Normal [facility] Absolute lymphocyte countOrd ered By: Keron Maciel on 09-22-2023 Lymphocytes Auto (Unsp spec) [#/Vol] 1.66 10*3/uL 0.83-4.51 [facility] Automated lymphocyte count a s percentage of total leukocytesOrdered By: Keron Maciel on 09-22-2023 Lymphocytes/100 WBC Auto (Unsp spec) 20.4 % 19-41 [facility] Basophil percentageOrdered B y: Keron Maciel on 09-22-2023 Basophils/100 WBC (Bld) 0.4 % 0-1 [facility] Bilirubin [Mass/Vol] 0.70 mg/dL 0.20-1.00 [facility] Comment on above: For patients on eltr ombopag therapy, use of Dimension [place] TBIL is not recommended. Chloride [Moles/Vol] 100 mmol/L 98-107 [facility] Cholesterol [Mass/Vol] 154 mg/dL <200 [facility] Comment on above: <200 mg/dL Desirable 200-240 mg/dL Borderline >240 mg/dL High Risk Eosinophils/100 WBC (Bld) 1.0 % 0-5 [facility] Glucose [Mass/Vol] 126 mg/dL 74-106 [facility] Comment on above: Fasting Glucose resu lt greater than or equal to 126 mg/dL suggests DIABETES MELLITUS per A.D.A. criteria. Hemoglobin (Bld) [Mass/Vol] 13.3 g/dL 13.0-16.5 [facility] Monocytes/100 WBC (Bld) 8.7 % 0-10 [facility] Neutrophils (Bld) [#/Vol] 5.5 10*3/uL 2.0-7.7 [facility] Neutrophils/100 WBC (Bld) 67.8 % 47-70 [facility] Potassium [Moles/Vol] 4.5 mmol/L 3.5-5.1 [facility] Protein [Mass/Vol] 7.2 g/dL 6.4-8.2 [facility] Sodium [Moles/Vol] 136 mmol/L 136-145 [facility] Triglyceride [Mass/Vol] 145 mg/dL <199 [facility] Comment on above: The drugs N-Acetylcy steine and Metamizole may falsely depress this assay.Serum Triglycerides Reference Interval Normal <150 mg/dL Borderline high 150 - 199 mg/dL High 200 - 499 mg/dL Very High > or = 500 mg/dL WBC (Bld) [#/Vol] 8.1 10*3/uL 4.4-11.0 [facility] Determination of erythrocyte mean corpuscular volume (MCV)Ordered By: Keron Maciel on 09-22-2023 MCV (RBC) [Entitic vol] 89.0 fL 80-94 [facility] Erythrocyte distribution wid th ratioOrdered By: Keron Maciel on 09-22-2023 Erythrocyte distribution width (RBC) [Ratio] 16.9 % 11.6-14.6 [facility] Erythrocyte distribution wid th standard deviationOrdered By: Keron Maciel on 09-22-2023 Erythrocyte distribution width (RBC) [Entitic vol] 54.4 fL 35.1-43.9 [facility] Hematocrit Auto (Bld) [Volum e fraction]Ordered By: Keron Maciel on 09-22-2023 Hematocrit (Bld) [Volume fraction] 41.1 % 40-54 [facility] Immature granulocytes/100 WB C Auto (Bld)Ordered By: Keron Maciel on 09-22-2023 Immature granulocytes/100 WBC (Bld) 1.700 % 0.0-0.9 [facility] Comment on above: IG% - Immature Granu locytes (promyelocytes, myelocytes and metamyelocytes) > 1% indicates that a LEFT SHIFT is Present. Laboratory - Chemistry and C hemistry - challengeOrdered By: Keronrichard Maciel on 09-22-2023 Albumin/Globulin [Mass ratio] 1.1 {ratio} 0.9-2.4 [facility] ALP [Catalytic activity/Vol] 32 U/L 45-117 [facility] ALT [Catalytic activity/Vol] 8 U/L 16-61 [facility] Cholesterol in HDL [Mass/Vol] 50 mg/dL >40 [facility] Comment on above: The drugs N-Acetylcy steine and Metamizole may falsely depress this assay. Reference Range HDL <40 mg/dL Low HDL Cholesterol HDL >or= 60 mg/dL High HDL Cholesterol Cholesterol in LDL [Mass/Vol] 75 mg/dL 0-130 [facility] CO2 [Moles/Vol] 29.0 mmol/L 21.0-32.0 [facility] Globulin (S) [Mass/Vol] 3.5 g/dL 2.2-4.2 [facility] Urea nitrogen/Creatinine [Mass ratio] 15.0 mg/mg 10-20 [facility] Laboratory - Hematology and Cell countsOrdered By: Keron Maciel on 09-22-2023 MCH (RBC) [Entitic mass] 28.8 pg 27.0-32.0 [facility] MCHC (RBC) [Mass/Vol] 32.4 g/dL 32-36 [facility] Nucleated RBC/100 WBC (Bld) [Ratio] 0 % 0-5 [facility] Platelet mean volume (Bld) [Entitic vol] 9.0 fL 6.2-12.0 [facility] Platelets (Bld) [#/Vol] 255 10*3/uL 150-450 [facility] No Panel InformationOrdered By: Keron Maciel on 09-22-2023 Estimated GFR (MDRD) Amer 44 mL/min >60 [facility] Comment on above: GFR Calc Estimated GFR (MDRD) Non-Af Amer 37 mL/min >60 [facility] Comment on above: Non- GFR Calc Vitamin D 25-Hydroxy 81.7 ng/mL [facility] Comment on above: Vitamin D 25(OH) Sta tus Range Deficiency <20 ng/mL (50nmol/L) Insufficiency 20 - 30 ng/mL (50 - 75 nmol/L) Sufficiency 30 - 100 ng/mL (75 - 250 nmol/L) Toxicity >100 ng/mL (>250 nmol/L) VLDL Cholesterol 29 mg/dL 5-40 [facility] RBC Auto (Bld) [#/Vol]Ordere d By: Keron Maciel on 09-22-2023 RBC (Bld) [#/Vol] 4.62 10*6/uL 4.6-6.2 [facility] Serum or plasma calcium odilon urement (mass/volume)Ordered By: Keron Maciel on 09-22-2023 Calcium [Mass/Vol] 10.0 mg/dL 8.5-10.1 [facility] Serum or plasma creatinine m easurement (mass/volume)Ordered By: Keron Maciel on 09-22-2023 Creatinine [Mass/Vol] 1.87 mg/dL 0.70-1.30 [facility] Comment on above: The validity of the calculated GFR & GFRAA in patients over 70 years has not been determined. Clinical correlation is essential. Serum or plasma thyroid stim ulating hormone (TSH) measurement (units/volume)Ordered By: Keron Maciel on 09-22-2023 TSH Qn 2.98 uIU/mL 0.358-3.74 [facility] Serum or plasma urea nitroge n measurement (mass/volume)Ordered By: Keron Maciel on 09-22-2023 Urea nitrogen [Mass/Vol] 28 mg/dL 7-18 [facility] Thin prep Papanicolaou smear with manual screeningOrdered By: Keron Maciel on 09-22-2023 Thin prep Papanicolaou smear with manual screening 3.7 g/dL 3.2-5.0 [facility] Thin prep Papanicolaou smear with manual screening 10 U/L 15-37 [facility] Thin prep Papanicolaou smear with manual screening 7 5-15 [facility] Whole blood hemoglobin A1c/t otal hemoglobin ratio (mass fraction)Ordered By: Keron Maciel on 09-22-2023 HbA1c (Bld) [Mass fraction] 6.4 % 3.8-5.6 [facility] Comment on above: Normal < 5.7 % Predi abetic 5.7 - 6.4 % Diabetic >or= 6.5 % Please note range changes. No Panel Informationon 08-10 Influenza Types A,B Rapid (Clinic) Negative [facility] POC SARS CoV-2 Antigen Negative [facility] Absolute lymphocyte countOrd ered By: Junior Duenas on 07-16-2023 Lymphocytes Auto (Unsp spec) [#/Vol] 1.30 10*3/uL 0.83-4.51 [facility] Automated lymphocyte count a s percentage of total leukocytesOrdered By: Junior Duenas on 07-16-2023 Lymphocytes/100 WBC Auto (Unsp spec) 18.3 % 19-41 [facility] Basophil percentageOrdered B y: Junior Duenas on 07-16-2023 Basophils/100 WBC (Bld) 0.8 % 0-1 [facility] Chloride [Moles/Vol] 105 mmol/L 98-107 [facility] Eosinophils/100 WBC (Bld) 3.2 % 0-5 [facility] Glucose [Mass/Vol] 107 mg/dL 74-106 [facility] Comment on above: Fasting Glucose resu lt from 100 to 125 mg/dL suggests IMPAIRED HOMEOSTASIS per A.D.A. criteria. Hemoglobin (Bld) [Mass/Vol] 12.4 g/dL 13.0-16.5 [facility] Monocytes/100 WBC (Bld) 9.9 % 0-10 [facility] Neutrophils (Bld) [#/Vol] 4.8 10*3/uL 2.0-7.7 [facility] Neutrophils/100 WBC (Bld) 67.2 % 47-70 [facility] Potassium [Moles/Vol] 4.6 mmol/L 3.5-5.1 [facility] Sodium [Moles/Vol] 138 mmol/L 136-145 [facility] WBC (Bld) [#/Vol] 7.1 10*3/uL 4.4-11.0 [facility] Determination of erythrocyte mean corpuscular volume (MCV)Ordered By: Junior Duenas on 07-16-2023 MCV (RBC) [Entitic vol] 90.0 fL 80-94 [facility] Erythrocyte distribution wid th ratioOrdered By: Junior Duenas on 07-16-2023 Erythrocyte distribution width (RBC) [Ratio] 15.5 % 11.6-14.6 [facility] Erythrocyte distribution wid th standard deviationOrdered By: Junior Duenas on 07-16-2023 Erythrocyte distribution width (RBC) [Entitic vol] 51.0 fL 35.1-43.9 [facility] Hematocrit Auto (Bld) [Volum e fraction]Ordered By: Junior Duenas on 07-16-2023 Hematocrit (Bld) [Volume fraction] 38.9 % 40-54 [facility] Immature granulocytes/100 WB C Auto (Bld)Ordered By: Junior Duenas on 07-16-2023 Immature granulocytes/100 WBC (Bld) 0.600 % 0.0-0.9 [facility] Comment on above: IG% - Immature Granu locytes (promyelocytes, myelocytes and metamyelocytes) > 1% indicates that a LEFT SHIFT is Present. Laboratory - Chemistry and C hemistry - challengeOrdered By: Junior Duenas on 07-16-2023 CO2 [Moles/Vol] 23.0 mmol/L 21.0-32.0 [facility] Natriuretic peptide B (Bld) [Mass/Vol] 76.2 pg/mL 0-100 [facility] Urea nitrogen/Creatinine [Mass ratio] 15.5 mg/mg 10-20 [facility] Laboratory - Hematology and Cell countsOrdered By: Junior Duenas on 07-16-2023 MCH (RBC) [Entitic mass] 28.7 pg 27.0-32.0 [facility] MCHC (RBC) [Mass/Vol] 31.9 g/dL 32-36 [facility] Nucleated RBC/100 WBC (Bld) [Ratio] 0 % 0-5 [facility] Platelets (Bld) [#/Vol] 269 10*3/uL 150-450 [facility] Laboratory - Microbiology an d Antimicrobial susceptibilityOrdered By: Junior Duenas on 07-16-2023 SARS-CoV-2 (COVID-19) RNA VÍCTOR+probe Ql (Unsp spec) [facility] No Panel InformationOrdered By: Junior Duenas on 07-16-2023 Troponin I High Sensitivity 18 pg/mL 3.0-78.0 [facility] Comment on above: Please Note: New Citlali t Units and Gender Specific Reference Ranges. For more information see Policy Stat Procedure [place] High Sensitivity Troponin (TNIH) and attachments. D-Dimer Quantitative (PE/DVT) 0.61 FEU/ug/m 0.27-0.49 [facility] Comment on above: D-Dimer ELEVATED (>0 .49): Additional studies and clinicalassessments are indicated to conclude diagnosis of:Deep Vein Thrombosis (DVT) or Pulmonary Embolism (PE)CRITICAL VALUE VERIFIED. CALLED TO JUNIOR DUENAS NP07/16/23 [id number] Eliezer Moncada.RESULTS READ BACK BY SAME . Estimated Creatinine Clearance Calc 29.81 ml/min [facility] Estimated GFR (MDRD) Amer 41 mL/min >60 [facility] Comment on above: GFR Calc Estimated GFR (MDRD) Non-Af Amer 34 mL/min >60 [facility] Comment on above: Non- GFR Calc Platelet mean volume Torey-Ec ker (Bld) [Entitic vol]Ordered By: Junior Duenas on 07-16-2023 Platelet mean volume (Bld) [Entitic vol] 9.1 fL 6.2-12.0 [facility] RBC Auto (Bld) [#/Vol]Ordere d By: Junior Duenas on 07-16-2023 RBC (Bld) [#/Vol] 4.32 10*6/uL 4.6-6.2 [facility] Serum or plasma calcium odilon urement (mass/volume)Ordered By: Junior Duenas on 07-16-2023 Calcium [Mass/Vol] 10.0 mg/dL 8.5-10.1 [facility] Serum or plasma creatinine m easurement (mass/volume)Ordered By: Junior Duenas on 07-16-2023 Creatinine [Mass/Vol] 2.00 mg/dL 0.70-1.30 [facility] Comment on above: The validity of the calculated GFR & GFRAA in patients over 70 years has not been determined. Clinical correlation is essential. Serum or plasma urea nitroge n measurement (mass/volume)Ordered By: Junior Duenas on 07-16-2023 Urea nitrogen [Mass/Vol] 31 mg/dL 7-18 [facility] Thin prep Papanicolaou smear with manual screeningOrdered By: Junior Duenas on 07-16-2023 Thin prep Papanicolaou smear with manual screening 10 5-15 [facility] Absolute lymphocyte countOrd ered By: Dr. Maciel on 09-28-2022 Lymphocytes Auto (Unsp spec) [#/Vol] 1.75 10*3/uL 0.83-4.51 [facility] Basophil percentageOrdered B y: Dr. Maciel on 09-28-2022 Basophils/100 WBC (Bld) 0.7 % 0-1 [facility] Bilirubin [Mass/Vol] 0.60 mg/dL 0.20-1.00 [facility] Comment on above: For patients on eltr ombopag therapy, use of Dimension [place] TBIL is not recommended. Chloride [Moles/Vol] 103 mmol/L 98-107 [facility] Cholesterol [Mass/Vol] 152 mg/dL <200 [facility] Comment on above: <200 mg/dL Desirable 200-240 mg/dL Borderline >240 mg/dL High Risk Eosinophils/100 WBC (Bld) 3.8 % 0-5 [facility] Glucose [Mass/Vol] 61 mg/dL 74-106 [facility] Neutrophils (Bld) [#/Vol] 4.0 10*3/uL 2.0-7.7 [facility] Neutrophils/100 WBC (Bld) 58.5 % 47-70 [facility] Potassium [Moles/Vol] 4.2 mmol/L 3.5-5.1 [facility] Protein [Mass/Vol] 6.9 g/dL 6.4-8.2 [facility] Sodium [Moles/Vol] 137 mmol/L 136-145 [facility] Triglyceride [Mass/Vol] 150 mg/dL <199 [facility] Comment on above: The drugs N-Acetylcy steine and Metamizole may falsely depress this assay.Serum Triglycerides Reference Interval Normal <150 mg/dL Borderline high 150 - 199 mg/dL High 200 - 499 mg/dL Very High > or = 500 mg/dL WBC (Bld) [#/Vol] 6.8 10*3/uL 4.4-11.0 [facility] Blood erythrocytes count (nu mber/volume)Ordered By: Dr. Maciel on 09-28-2022 RBC (Bld) [#/Vol] 4.33 10*6/uL 4.6-6.2 [facility] Blood hemoglobin measurement (mass/volume)Ordered By: Dr. Maciel on 09-28-2022 Hemoglobin (Bld) [Mass/Vol] 12.9 g/dL 13.0-16.5 [facility] Blood lymphocytes/100 leukoc ytesOrdered By: Dr. Maciel on 09-28-2022 Lymphocytes/100 WBC (Bld) 25.8 % 19-41 [facility] Blood monocytes/100 leukocyt esOrdered By: Dr. Maciel on 09-28-2022 Monocytes/100 WBC (Bld) 10.6 % 0-10 [facility] Blood platelet mean volumeOr dered By: Dr. Maciel on 09-28-2022 Platelet mean volume (Bld) [Entitic vol] 9.2 fL 6.2-12.0 [facility] Determination of erythrocyte mean corpuscular volume (MCV)Ordered By: Dr. Maciel on 09-28-2022 MCV (RBC) [Entitic vol] 94.7 fL 80-94 [facility] Hematocrit Auto (Bld) [Volum e fraction]Ordered By: Dr. Maciel on 09-28-2022 Hematocrit (Bld) [Volume fraction] 41.0 % 40-54 [facility] Laboratory - Chemistry and C hemistry - challengeOrdered By: Dr. Maciel on 09-28-2022 ALP [Catalytic activity/Vol] 28 U/L 45-117 [facility] ALT [Catalytic activity/Vol] 10 U/L 16-61 [facility] CO2 [Moles/Vol] 29.0 mmol/L 21.0-32.0 [facility] Free T4 [Mass/Vol] 0.94 ng/dL 0.76-1.46 [facility] Globulin (S) [Mass/Vol] 3.2 g/dL 2.2-4.2 [facility] Magnesium [Mass/Vol] 2.0 mg/dL 1.6-2.6 [facility] Urea nitrogen/Creatinine [Mass ratio] 14.7 mg/mg 10-20 [facility] Laboratory - Hematology and Cell countsOrdered By: Dr. Maciel on 09-28-2022 Erythrocyte distribution width (RBC) [Entitic vol] 55.9 fL 35.1-43.9 [facility] Erythrocyte distribution width (RBC) [Ratio] 15.9 % 11.6-14.6 [facility] Immature granulocytes/100 WBC (Bld) 0.600 % 0.0-0.9 [facility] Comment on above: IG% - Immature Granu locytes (promyelocytes, myelocytes and metamyelocytes) > 1% indicates that a LEFT SHIFT is Present. MCH (RBC) [Entitic mass] 29.8 pg 27.0-32.0 [facility] Nucleated RBC/100 WBC (Bld) [Ratio] 0 % 0-5 [facility] MCHC Auto (RBC) [Mass/Vol]Or dered By: Dr. Maciel on 09-28-2022 MCHC (RBC) [Mass/Vol] 31.5 g/dL 32-36 [facility] No Panel InformationOrdered By: Dr. Maciel on 09-28-2022 D-Dimer Quantitative (PE/DVT) 0.33 FEU/ug/m 0.27-0.49 [facility] Comment on above: NORMAL D-Dimer level (<0.50) indicates no DVT or PE. Estimated GFR (MDRD) Amer 55 mL/min >60 [facility] Comment on above: GFR Calc Estimated GFR (MDRD) Non-Af Amer 45 mL/min >60 [facility] Comment on above: Non- GFR Calc Free Triiodothyronine (T3) pg/dL 2.1 pg/mL 2.18-3.98 [facility] Thyroid Stimulating Hormone (TSH) 2.34 uIU/mL 0.358-3.74 [facility] Platelets bldOrdered By: Dr. Maciel on 09-28-2022 Platelets (Bld) [#/Vol] 276 10*3/uL 150-450 [facility] Serum or plasma albumin odilon urement (mass/volume)Ordered By: Dr. Maciel on 09-28-2022 Albumin [Mass/Vol] 3.7 g/dL 3.2-5.0 [facility] Serum or plasma albumin/glob ulin mass ratioOrdered By: Dr. Maciel on 09-28-2022 Albumin/Globulin [Mass ratio] 1.2 {ratio} 0.9-2.4 [facility] Serum or plasma calcium odilon urement (mass/volume)Ordered By: Dr. Maciel on 09-28-2022 Calcium [Mass/Vol] 9.3 mg/dL 8.5-10.1 [facility] Serum or plasma cholesterol in HDL measurement (mass/volume)Ordered By: Dr. Maciel on 09-28-2022 Cholesterol in HDL [Mass/Vol] 57 mg/dL >40 [facility] Comment on above: The drugs N-Acetylcy steine and Metamizole may falsely depress this assay. Reference Range HDL <40 mg/dL Low HDL Cholesterol HDL >or= 60 mg/dL High HDL Cholesterol Serum or plasma cholesterol in VLDL measurement (mass/volume)Ordered By: Dr. Maciel on 09-28-2022 Cholesterol in VLDL [Mass/Vol] 30 mg/dL 5-40 [facility] Serum or plasma creatinine m easurement (mass/volume)Ordered By: Dr. Maciel on 09-28-2022 Creatinine [Mass/Vol] 1.56 mg/dL 0.70-1.30 [facility] Comment on above: The validity of the calculated GFR & GFRAA in patients over 70 years has not been determined. Clinical correlation is essential. Serum or plasma low density lipoprotein (LDL) cholesterol measurement (mass/volume)Ordered By: Dr. Maciel on 09-28-2022 Cholesterol in LDL [Mass/Vol] 65 mg/dL 0-130 [facility] Serum or plasma urea nitroge n measurement (mass/volume)Ordered By: Dr. Maciel on 09-28-2022 Urea nitrogen [Mass/Vol] 23 mg/dL 7-18 [facility] Thin prep Papanicolaou smear with manual screeningOrdered By: Dr. Maciel on 09-28-2022 Thin prep Papanicolaou smear with manual screening 20 U/L 15-37 [facility] Thin prep Papanicolaou smear with manual screening 5 5-15 [facility] Whole blood hemoglobin A1c/t otal hemoglobin ratio (mass fraction)Ordered By: Dr. Maciel on 09-28-2022 HbA1c (Bld) [Mass fraction] 6.3 % 3.8-5.6 [facility] Comment on above: Normal < 5.7 % Predi abetic 5.7 - 6.4 % Diabetic >or= 6.5 % Please note range changes. Basophil percentageon 2021 Chloride [Moles/Vol] 101 mmol/L 98-107 [facility] Work Phone: Glucose [Mass/Vol] 182 mg/dL 74-106 [facility] Work Phone: Comment on above: Fasting Glucose resu lt greater than or equal to 126 mg/dL suggests DIABETES MELLITUS per A.D.A. criteria. Potassium [Moles/Vol] 4.2 mmol/L 3.5-5.1 [facility] Work Phone: Sodium [Moles/Vol] 143 mmol/L 136-145 [facility] Work Phone: Iron measurement (mass/mass) on 03-03-2022 Iron (Unsp spec) [Mass/Mass] 215 ug/dL 65-175 [facility] Work Phone: Laboratory - Chemistry and C hemistry - challengeon 03-03-2022 CO2 [Moles/Vol] 30.0 mmol/L 21.0-32.0 [facility] Work Phone: Urea nitrogen/Creatinine [Mass ratio] 12.4 mg/mg 10-20 [facility] Work Phone: No Panel Informationon 03-03 Estimated GFR (MDRD) Amer 53 mL/min >60 [facility] Work Phone: Comment on above: GFR Calc Estimated GFR (MDRD) Non-Af Amer 44 mL/min >60 [facility] Work Phone: Comment on above: Non- GFR Calc Total Iron Binding Capacity 430 ug/dL 250-450 [facility] Work Phone: [phone] Serum or plasma calcium odilon urement (mass/volume)on 03-03-2022 Calcium [Mass/Vol] 9.7 mg/dL 8.5-10.1 [facility] Work Phone: [phone] Serum or plasma creatinine m easurement (mass/volume)on 03-03-2022 Creatinine [Mass/Vol] 1.61 mg/dL 0.70-1.30 [facility] Work Phone: Comment on above: The validity of the calculated GFR & GFRAA in patients over 70 years has not been determined. Clinical correlation is essential. Serum or plasma iron saturat ion measurement (mass fraction)on 03-03-2022 Iron saturation [Mass fraction] 50.0 % 15.0-55.0 [facility] Work Phone: [phone] Serum or plasma urea nitroge n measurement (mass/volume)on 03-03-2022 Urea nitrogen [Mass/Vol] 20 mg/dL 7-18 [facility] Work Phone: [phone] Thin prep Papanicolaou smear with manual screeningon 03-03-2022 Thin prep Papanicolaou smear with manual screening 12 -15 [facility] Work Phone: [phone] Absolute lymphocyte counton 02-16-2022 Lymphocytes Auto (Unsp spec) [#/Vol] 1.20 10*3/uL 0.83-4.51 [facility] Work Phone: Basophil percentageon 2021 Basophils/100 WBC (Bld) 0.9 % 0-1 [facility] Work Phone: Bilirubin [Mass/Vol] 0.70 mg/dL 0.20-1.00 [facility] Work Phone: Comment on above: For patients on eltr ombopag therapy, use of Dimension [place] TBIL is not recommended. Chloride [Moles/Vol] 103 mmol/L 98-107 [facility] Work Phone: Eosinophils/100 WBC (Bld) 3.2 % 0-5 [facility] Work Phone: Glucose [Mass/Vol] 133 mg/dL 74-106 [facility] Work Phone: Comment on above: Fasting Glucose resu lt greater than or equal to 126 mg/dL suggests DIABETES MELLITUS per A.D.A. criteria. Neutrophils (Bld) [#/Vol] 3.3 10*3/uL 2.0-7.7 [facility] Work Phone: Neutrophils/100 WBC (Bld) 61.6 % 47-70 [facility] Work Phone: Potassium [Moles/Vol] 5.5 mmol/L 3.5-5.1 [facility] Work Phone: [phone] Comment on above: Moderate Hemolysis, Result may be falsely increased. Protein [Mass/Vol] 7.1 g/dL 6.4-8.2 [facility] Work Phone: Sodium [Moles/Vol] 139 mmol/L 136-145 [facility] Work Phone: WBC (Bld) [#/Vol] 5.4 10*3/uL 4.4-11.0 [facility] Work Phone: Blood erythrocytes count (nu mber/volume)on 02-16-2022 RBC (Bld) [#/Vol] 3.85 10*6/uL 4.6-6.2 [facility] Work Phone: Blood hemoglobin measurement (mass/volume)on 02-16-2022 Hemoglobin (Bld) [Mass/Vol] 11.1 g/dL 13.0-16.5 [facility] Work Phone: [phone] Blood lymphocytes/100 leukoc yteson 02-16-2022 Lymphocytes/100 WBC (Bld) 22.4 % 19-41 [facility] Work Phone: [phone] Blood monocytes/100 leukocyt eson 02-16-2022 Monocytes/100 WBC (Bld) 11.2 % 0-10 [facility] Work Phone: [phone] Blood platelet mean volumeon 02-16-2022 Platelet mean volume (Bld) [Entitic vol] 9.1 fL 6.2-12.0 [facility] Work Phone: Determination of erythrocyte mean corpuscular volume (MCV)on 02-16-2022 MCV (RBC) [Entitic vol] 89.9 fL 80-94 [facility] Work Phone: [phone] Hematocrit Auto (Bld) [Volum e fraction]on 02-16-2022 Hematocrit (Bld) [Volume fraction] 34.6 % 40-54 [facility] Work Phone: [phone] Iron measurement (mass/mass) on 02-16-2022 Iron (Unsp spec) [Mass/Mass] 63 ug/dL 65-175 [facility] Work Phone: [phone] Comment on above: Moderate Hemolysis, Result may be falsely increased. Laboratory - Chemistry and C hemistry - challengeon 02-16-2022 ALP [Catalytic activity/Vol] 26 U/L 45-117 [facility] Work Phone: [phone] ALT [Catalytic activity/Vol] 16 U/L 16-61 [facility] Work Phone: [phone] CO2 [Moles/Vol] 27.0 mmol/L 21.0-32.0 [facility] Work Phone: [phone] Free T4 [Mass/Vol] 0.90 ng/dL 0.76-1.46 [facility] Work Phone: [phone] Globulin (S) [Mass/Vol] 3.4 g/dL 2.2-4.2 [facility] Work Phone: [phone] Urea nitrogen/Creatinine [Mass ratio] 13.3 mg/mg 10-20 [facility] Work Phone: [phone] Laboratory - Hematology and Cell countson 02-16-2022 Erythrocyte distribution width (RBC) [Entitic vol] 57.6 fL 35.1-43.9 [facility] Work Phone: [phone] Erythrocyte distribution width (RBC) [Ratio] 17.4 % 11.6-14.6 [facility] Work Phone: [phone] Immature granulocytes/100 WBC (Bld) 0.700 % 0.0-0.9 [facility] Work Phone: [phone] Comment on above: IG% - Immature Granu locytes (promyelocytes, myelocytes and metamyelocytes) > 1% indicates that a LEFT SHIFT is Present. MCH (RBC) [Entitic mass] 28.8 pg 27.0-32.0 [facility] Work Phone: [phone] Nucleated RBC/100 WBC (Bld) [Ratio] 0 % 0-5 [facility] Work Phone: [phone] MCHC Auto (RBC) [Mass/Vol]on 02-16-2022 MCHC (RBC) [Mass/Vol] 32.1 g/dL 32-36 [facility] Work Phone: [phone] Panel Informationon 02-16 Estimated GFR (MDRD) Amer 46 mL/min >60 [facility] Work Phone: [phone] Comment on above: GFR Calc Estimated GFR (MDRD) Non-Af Amer 38 mL/min >60 [facility] Work Phone: [phone] Comment on above: Non- GFR Calc Free Triiodothyronine (T3) pg/dL 2.5 pg/mL 2.18-3.98 [facility] Work Phone: [phone] Prostate Specific Antigen Screen 1.22 ng/mL 0.00-4.00 [facility] Work Phone: Comment on above: This test was perfor med using the TPSA assay method for [facility]. Values obtained with differentassay methods cannot be used interchangably.When changing PSA assays in the course of monitoring apatient, additional sequential testing should be carriedout to confirm baseline values. Thyroid Stimulating Hormone (TSH) 2.23 uIU/mL 0.358-3.74 [facility] Work Phone: [phone] Total Iron Binding Capacity 454 ug/dL 250-450 [facility] Work Phone: [phone] Comment on above: Moderate Hemolysis, Result may be falsely increased. Vitamin D 25-Hydroxy 59.5 ng/mL [facility] Work Phone: Comment on above: Vitamin D 25(OH) Sta tus Range Deficiency <20 ng/mL (50nmol/L) Insufficiency 20 - 30 ng/mL (50 - 75 nmol/L) Sufficiency 30 - 100 ng/mL (75 - 250 nmol/L) Toxicity >100 ng/mL (>250 nmol/L) Platelets bldon 02-16-2022 Platelets (Bld) [#/Vol] 289 10*3/uL 150-450 [facility] Work Phone: [phone] Serum or plasma albumin odilon urement (mass/volume)on 02-16-2022 Albumin [Mass/Vol] 3.7 g/dL 3.2-5.0 [facility] Work Phone: [phone] Serum or plasma albumin/glob ulin mass ratioon 02-16-2022 Albumin/Globulin [Mass ratio] 1.1 {ratio} 0.9-2.4 [facility] Work Phone: [phone] Serum or plasma calcium odilon urement (mass/volume)on 02-16-2022 Calcium [Mass/Vol] 10.0 mg/dL 8.5-10.1 [facility] Work Phone: [phone] Serum or plasma creatinine m easurement (mass/volume)on 02-16-2022 Creatinine [Mass/Vol] 1.80 mg/dL 0.70-1.30 [facility] Work Phone: Comment on above: The validity of the calculated GFR & GFRAA in patients over 70 years has not been determined. Clinical correlation is essential. Serum or plasma iron saturat ion measurement (mass fraction)on 02-16-2022 Iron saturation [Mass fraction] 13.9 % 15.0-55.0 [facility] Work Phone: Serum or plasma urea nitroge n measurement (mass/volume)on 02-16-2022 Urea nitrogen [Mass/Vol] 24 mg/dL 7-18 [facility] Work Phone: Thin prep Papanicolaou smear with manual screeningon 02-16-2022 Thin prep Papanicolaou smear with manual screening 30 U/L 15-37 [facility] Work Phone: Comment on above: Moderate Hemolysis, Result may be falsely increased. Thin prep Papanicolaou smear with manual screening 9 5-15 [facility] Work Phone: Laboratory - Hematology and Cell countson 02-14-2022 HbA1c (Bld) [Mass fraction] 6.3 % 4.2-6.3 [facility] Work Phone: Absolute lymphocyte counton 10-26-2021 Lymphocytes Auto (Unsp spec) [#/Vol] 1.47 10*3/uL 0.83-4.51 [facility] Work Phone: Basophil percentageon 2021 Basophils/100 WBC (Bld) 0.7 % 0-1 [facility] Work Phone: Chloride [Moles/Vol] 103 mmol/L 98-107 [facility]: Eosinophils/100 WBC (Bld) 3.4 % 0-5 [facility] Work Phone: Glucose [Mass/Vol] 109 mg/dL 74-106 [facility] Work Phone: Comment on above: Fasting Glucose resu lt from 100 to 125 mg/dL suggests IMPAIRED HOMEOSTASIS per A.D.A. criteria. Neutrophils (Bld) [#/Vol] 3.3 10*3/uL 2.0-7.7 [facility] Work Phone: Neutrophils/100 WBC (Bld) 58.1 % 47-70 [facility] Work Phone: Potassium [Moles/Vol] 4.7 mmol/L 3.5-5.1 [facility] Work Phone: Sodium [Moles/Vol] 138 mmol/L 136-[facility]: WBC (Bld) [#/Vol] 5.6 10*3/uL 4.4-11.0 [facility] Work Phone: Blood erythrocytes count (nu mber/volume)on 10-26-2021 RBC (Bld) [#/Vol] 4.32 10*6/uL 4.6-6.2 [facility]: Blood hemoglobin measurement (mass/volume)on 10-26-2021 Hemoglobin (Bld) [Mass/Vol] 11.6 g/dL 13.0-16.5 [facility] Work Phone: Blood lymphocytes/100 leukoc yteson 10-26-2021 Lymphocytes/100 WBC (Bld) 26.1 % 19-41 [facility] Work Phone: Blood monocytes/100 leukocyt eson 10-26-2021 Monocytes/100 WBC (Bld) 11.0 % 0-10 [facility] Work Phone: Blood platelet mean volumeon 10-26-2021 Platelet mean volume (Bld) [Entitic vol] 9.3 fL 6.2-12.0 [facility] Work Phone: Determination of erythrocyte mean corpuscular volume (MCV)on 10-26-2021 MCV (RBC) [Entitic vol] 86.1 fL 80-94 [facility] Work Phone: Hematocrit Auto (Bld) [Volum e fraction]on 10-26-2021 Hematocrit (Bld) [Volume fraction] 37.2 % 40-54 [facility] Work Phone: [phone] Laboratory - Chemistry and C hemistry - challengeon 10-26-2021 CO2 [Moles/Vol] 28.0 mmol/L 21.0-32.0 [facility] Work Phone: [phone] Natriuretic peptide B (Bld) [Mass/Vol] 98.4 pg/mL 0-100 [facility] Work Phone: [phone] Urea nitrogen/Creatinine [Mass ratio] 14.4 mg/mg 10-20 [facility] Work Phone: [phone] Laboratory - Hematology and Cell countson 10-26-2021 Erythrocyte distribution width (RBC) [Entitic vol] 50.3 fL 35.1-43.9 [facility] Work Phone: [phone] Erythrocyte distribution width (RBC) [Ratio] 16.2 % 11.6-14.6 [facility] Work Phone: [phone] Immature granulocytes/100 WBC (Bld) 0.700 % 0.0-0.9 [facility] Work Phone: [phone] Comment on above: IG% - Immature Granu locytes (promyelocytes, myelocytes and metamyelocytes) > 1% indicates that a LEFT SHIFT is Present. MCH (RBC) [Entitic mass] 26.9 pg 27.0-32.0 [facility] Work Phone: [phone] Nucleated RBC/100 WBC (Bld) [Ratio] 0 % 0-5 [facility] Work Phone: [phone] MCHC Auto (RBC) [Mass/Vol]on 10-26-2021 MCHC (RBC) [Mass/Vol] 31.2 g/dL 32-36 [facility] Work Phone: [phone] Panel Informationon 10-26 Estimated GFR (MDRD) Amer 56 mL/min >60 [facility] Work Phone: [phone] Comment on above: GFR Calc Estimated GFR (MDRD) Non-Af Amer 46 mL/min >60 [facility] Work Phone: [phone] Comment on above: Non- GFR Calc Platelets bldon 10-26-2021 Platelets (Bld) [#/Vol] 259 10*3/uL 150-450 [facility] Work Phone: Serum or plasma calcium odilon urement (mass/volume)on 10-26-2021 Calcium [Mass/Vol] 10.1 mg/dL 8.5-10.1 [facility] Work Phone: Serum or plasma creatinine m easurement (mass/volume)on 10-26-2021 Creatinine [Mass/Vol] 1.53 mg/dL 0.70-1.30 [facility] Work Phone: Comment on above: The validity of the calculated GFR & GFRAA in patients over 70 years has not been determined. Clinical correlation is essential. Serum or plasma urea nitroge n measurement (mass/volume)on 10-26-2021 Urea nitrogen [Mass/Vol] 22 mg/dL 7-18 [facility] Work Phone: Thin prep Papanicolaou smear with manual screeningon 10-26-2021 Thin prep Papanicolaou smear with manual screening 7 5-15 [facility] Work Phone: Absolute lymphocyte counton 10-13-2021 Lymphocytes Auto (Unsp spec) [#/Vol] 0.99 10*3/uL 0.83-4.51 [facility] Work Phone: Basophil percentageon 2021 Basophils/100 WBC (Bld) 0.9 % 0-1 [facility] Work Phone: [phone] Bilirubin [Mass/Vol] 0.70 mg/dL 0.20-1.00 [facility] Work Phone: [phone] Comment on above: For patients on eltr ombopag therapy, use of Dimension [place] TBIL is not recommended. Chloride [Moles/Vol] 102 mmol/L 98-107 [facility] Work Phone: Cholesterol [Mass/Vol] 169 mg/dL <200 [facility] Work Phone: [phone] Comment on above: <200 mg/dL Desirable 200-240 mg/dL Borderline >240 mg/dL High Risk Eosinophils/100 WBC (Bld) 3.1 % 0-5 [facility] Work Phone: Glucose [Mass/Vol] 144 mg/dL 74-106 [facility] Work Phone: [phone] Comment on above: Fasting Glucose resu lt greater than or equal to 126 mg/dL suggests DIABETES MELLITUS per A.D.A. criteria. Neutrophils (Bld) [#/Vol] 2.9 10*3/uL 2.0-7.7 [facility] Work Phone: [phone] Neutrophils/100 WBC (Bld) 62.2 % 47-70 [facility] Work Phone: Potassium [Moles/Vol] 4.2 mmol/L 3.5-5.1 [facility] Work Phone: Protein [Mass/Vol] 7.1 g/dL 6.4-8.2 [facility] Work Phone: [phone] Sodium [Moles/Vol] 137 mmol/L 136-145 [facility] Work Phone: Triglyceride [Mass/Vol] 247 mg/dL <199 [facility] Work Phone: Comment on above: The drugs N-Acetylcy steine and Metamizole may falsely depress this assay.Serum Triglycerides Reference Interval Normal <150 mg/dL Borderline high 150 - 199 mg/dL High 200 - 499 mg/dL Very High > or = 500 mg/dL WBC (Bld) [#/Vol] 4.6 10*3/uL 4.4-11.0 [facility] Work Phone: Blood erythrocytes count (nu mber/volume)on 10-13-2021 RBC (Bld) [#/Vol] 4.18 10*6/uL 4.6-6.2 [facility] Work Phone: Blood hemoglobin measurement (mass/volume)on 10-13-2021 Hemoglobin (Bld) [Mass/Vol] 11.2 g/dL 13.0-16.5 [facility] Work Phone: Blood lymphocytes/100 leukoc yteson 10-13-2021 Lymphocytes/100 WBC (Bld) 21.6 % 19-41 [facility] Work Phone: [phone] Blood monocytes/100 leukocyt eson 10-13-2021 Monocytes/100 WBC (Bld) 11.5 % 0-10 [facility] Work Phone: Blood platelet mean volumeon 10-13-2021 Platelet mean volume (Bld) [Entitic vol] 10.5 fL 6.2-12.0 [facility] Work Phone: Determination of erythrocyte mean corpuscular volume (MCV)on 10-13-2021 MCV (RBC) [Entitic vol] 86.4 fL 80-94 [facility] Work Phone: [phone] Hematocrit Auto (Bld) [Volum e fraction]on 10-13-2021 Hematocrit (Bld) [Volume fraction] 36.1 % 40-54 [facility] Work Phone: Laboratory - Chemistry and C hemistry - challengeon 10-13-2021 ALP [Catalytic activity/Vol] 27 U/L 45-117 [facility] Work Phone: ALT [Catalytic activity/Vol] 21 U/L 16-61 [facility] Work Phone: [phone] CO2 [Moles/Vol] 28.0 mmol/L 21.0-32.0 [facility] Work Phone: Cobalamin (Vitamin B12) [Mass/Vol] 891 pg/mL 211-911 [facility] Work Phone: Free T4 [Mass/Vol] 0.93 ng/dL 0.76-1.46 [facility] Work Phone: Globulin (S) [Mass/Vol] 3.4 g/dL 2.2-4.2 [facility] Work Phone: Urea nitrogen/Creatinine [Mass ratio] 15.2 mg/mg 10-20 [facility] Work Phone: Laboratory - Hematology and Cell countson 10-13-2021 Erythrocyte distribution width (RBC) [Entitic vol] 49.8 fL 35.1-43.9 [facility] Work Phone: [phone] Erythrocyte distribution width (RBC) [Ratio] 15.8 % 11.6-14.6 [facility] Work Phone: [phone] Immature granulocytes/100 WBC (Bld) 0.700 % 0.0-0.9 [facility] Work Phone: [phone] Comment on above: IG% - Immature Granu locytes (promyelocytes, myelocytes and metamyelocytes) > 1% indicates that a LEFT SHIFT is Present. MCH (RBC) [Entitic mass] 26.8 pg 27.0-32.0 [facility] Work Phone: [phone] Nucleated RBC/100 WBC (Bld) [Ratio] 0 % 0-5 [facility] Work Phone: [phone] MCHC Auto (RBC) [Mass/Vol]on 10-13-2021 MCHC (RBC) [Mass/Vol] 31.0 g/dL 32-36 [facility] Work Phone: No Panel Informationon 10-13 Estimated GFR (MDRD) Amer 63 mL/min >60 [facility] Work Phone: [phone] Comment on above: GFR Calc Estimated GFR (MDRD) Non-Af Amer 52 mL/min >60 [facility] Work Phone: [phone] Comment on above: Non- GFR Calc Free Triiodothyronine (T3) pg/dL 2.2 pg/mL 2.18-3.98 [facility] Work Phone: [phone] Thyroid Stimulating Hormone (TSH) 2.15 uIU/mL 0.358-3.74 [facility] Work Phone: [phone] Vitamin D 25-Hydroxy 67.7 ng/mL [facility] Work Phone: [phone] Comment on above: Vitamin D 25(OH) Sta tus Range Deficiency <20 ng/mL (50nmol/L) Insufficiency 20 - 30 ng/mL (50 - 75 nmol/L) Sufficiency 30 - 100 ng/mL (75 - 250 nmol/L) Toxicity >100 ng/mL (>250 nmol/L) Platelets bldon 10-13-2021 Platelets (Bld) [#/Vol] 238 10*3/uL 150-450 [facility] Work Phone: Serum or plasma albumin odilon urement (mass/volume)on 10-13-2021 Albumin [Mass/Vol] 3.7 g/dL 3.2-5.0 [facility] Work Phone: Serum or plasma albumin/glob ulin mass ratioon 10-13-2021 Albumin/Globulin [Mass ratio] 1.1 {ratio} 0.9-2.4 [facility] Work Phone: Serum or plasma calcium odilon urement (mass/volume)on 10-13-2021 Calcium [Mass/Vol] 9.5 mg/dL 8.5-10.1 [facility] Work Phone: Serum or plasma cholesterol in HDL measurement (mass/volume)on 10-13-2021 Cholesterol in HDL [Mass/Vol] 41 mg/dL >40 [facility] Work Phone: Comment on above: The drugs N-Acetylcy steine and Metamizole may falsely depress this assay. Reference Range HDL <40 mg/dL Low HDL Cholesterol HDL >or= 60 mg/dL High HDL Cholesterol Serum or plasma cholesterol in VLDL measurement (mass/volume)on 10-13-2021 Cholesterol in VLDL [Mass/Vol] 49 mg/dL 5-40 [facility] Work Phone: Serum or plasma creatinine m easurement (mass/volume)on 10-13-2021 Creatinine [Mass/Vol] 1.38 mg/dL 0.70-1.30 [facility] Work Phone: Comment on above: The validity of the calculated GFR & GFRAA in patients over 70 years has not been determined. Clinical correlation is essential. Serum or plasma low density lipoprotein (LDL) cholesterol measurement (mass/volume)on 10-13-2021 Cholesterol in LDL [Mass/Vol] 79 mg/dL 0-130 [facility] Work Phone: Serum or plasma urea nitroge n measurement (mass/volume)on 10-13-2021 Urea nitrogen [Mass/Vol] 21 mg/dL 7-18 [facility] Work Phone: Thin prep Papanicolaou smear with manual screeningon 10-13-2021 Thin prep Papanicolaou smear with manual screening 17 U/L 15-37 [facility] Work Phone: Thin prep Papanicolaou smear with manual screening 7 5-15 [facility] Work Phone: Laboratory - Hematology and Cell countson 09-07-2021 HbA1c (Bld) [Mass fraction] 7.7 % [facility] Work Phone: Laboratory - Chemistry and C hemistry - challengeon 06-22-2021 Cobalamin (Vitamin B12) [Mass/Vol] 717 pg/mL 211-911 [facility] Work Phone: Office Visit: abdominal pain on 05-09-2017 Documentation of current medications (procedure) Done Invalid Interpretation Code [facility] [employer] Work Phone: Fall risk assessment No Invalid Interpretation Code [facility] [employer] Work Phone: Tobacco smoking status NHIS Never Invalid Interpretation Code [facility] [employer] Work Phone: Tobacco use CPHS Former smoker Invalid Interpretation Code [facility] [employer] Work Phone: Lab Report: BNP,B-Type NATRI URETIC PEPTIDEon 01-20-2017 BNP 20.0 pg/mL Invalid Interpretation Code 0-100 [facility] [employer] Work Phone: Lab Report: Basic Metabolic Profile (BMP)on 01-20-2017 Anion gap 7 mmol/L Invalid Interpretation Code 5-15 [facility] [employer] Work Phone: BUN/Creatinine Ratio 14.6 RATIO Invalid Interpretation Code 10-20 [facility] [employer] Work Phone: Calcium 10.0 mg/dL Invalid Interpretation Code 8.5-10.1 [facility] [employer] Work Phone: Chloride 101 mmol/L Invalid Interpretation Code 98-107 [facility] [employer] Work Phone: [phone] CO2 30.0 mmol/L Invalid Interpretation Code 21.0-32.0 [facility] [employer] Work Phone: [phone] Creatinine 1.30 mg/dL Invalid Interpretation Code 0.70-1.30 [facility] [employer] Work Phone: [phone] eGFR (non-black) 68 mL/min/{1.73_m2} Invalid Interpretation Code >60 [facility] [employer] Work Phone: [phone] eGFR (non-black) 57 mL/min/{1.73_m2} Low >60 [facility] [employer] Work Phone: [phone] Glucose mass conc 110 mg/dL Invalid Interpretation Code 70-110 [facility] [employer] Work Phone: [phone] Potassium molar conc 4.5 mmol/L Invalid Interpretation Code 3.5-5.1 [facility] [employer] Work Phone: [phone] Sodium 138 mmol/L Invalid Interpretation Code 136-145 [facility] [employer] Work Phone: [phone] Urea nitrogen 19 mg/dL High 7-18 [facility] [employer] Work Phone: [phone] Lab Report: CBC W/Diff, Auto matedon 01-20-2017 Absolute Neut 3.3 X10 3/UL Invalid Interpretation Code 2.0-7.7 [facility] [employer] Work Phone: Basophils/100 WBC Auto (Bld) 1.0 % Invalid Interpretation Code 0-1 [facility] [employer] Work Phone: [phone] Eosinophils/100 leukocytes 5.6 % High 0-5 [facility] [employer] Work Phone: [phone] Erythrocyte distribution width Auto Ratio (RBC) 13.9 % Invalid Interpretation Code 11.6-14.6 [facility] [employer] Work Phone: [phone] Erythrocytes (RBC) 4.45 10*6/uL Low 4.6-6.2 [facility] [employer] Work Phone: Hematocrit (HCT) 42.4 % Invalid Interpretation Code 40-54 [facility] [employer] Work Phone: [phone] Hemoglobin mass conc (Bld) 14.0 g/dL Invalid Interpretation Code 13.0-16.5 [facility] [employer] Work Phone: Immature granulocytes/100 WBC (Bld) 0.700 % Invalid Interpretation Code 0.0-0.9 [facility] [employer] Work Phone: Lymphocytes 1.55 X10 3/UL Invalid Interpretation Code 0.83-4.51 [facility] [employer] Work Phone: Lymphocytes/100 leukocytes 27.1 % Invalid Interpretation Code 19-41 [facility] [employer] Work Phone: MCH 31.5 pg Invalid Interpretation Code 27.0-32.0 [facility] [employer] Work Phone: MCHC mass conc (RBC) 33.0 G/GL Invalid Interpretation Code 32-36 [facility] [employer] Work Phone: [phone] MCV 95.3 fL High 80-94 [facility] [employer] Work Phone: Monocytes/100 leukocytes 7.5 % Invalid Interpretation Code 0-10 [facility] [employer] Work Phone: Neutrophils/100 WBC Auto (Bld) 58.1 % Invalid Interpretation Code 47-70 [facility] [employer] Work Phone: Platelets 185 10*3/mm3 Invalid Interpretation Code 150-450 [facility] [employer] Work Phone: PMV by Ismael 9.8 fL Invalid Interpretation Code 6.2-12.0 [facility] [employer] Work Phone: RDW SD 48.2 fL High 35.1-43.9 [facility] [employer] Work Phone: WBC (Leukocytes) 5.7 10*3/uL Invalid Interpretation Code 4.4-11.0 [facility] [employer] Work Phone: 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 Left ventricular Ejection fraction 55 % Invalid Interpretation Code [facility] [employer] Work Phone: Lab Report: Ferritinon 03-21 Ferritin 7 ng/mL Low 26-388 [facility] [employer] Work Phone: Lab Report: Iron+Iron Bindin g Capacityon 03-21-2016 Iron 24 ug/dL Low 65-175 [facility] [employer] Work Phone: iron binding capacity, total 512 ug/dL High 250-450 [facility] [employer] Work Phone: iron saturation percent, serum 4.7 % Low 15.0-55.0 [facility] [employer] Work Phone: Lab Report: Retic Panelon RET-HE 22.4 pg Low 30-35 [facility] [employer] Work Phone: Reticulocytes/100 erythrocytes 1.25 % Invalid Interpretation Code 0.5-1.5 [facility] [employer] Work Phone: Replaced Document: Nadiramark E CG Observationson 03-08-2016 BUN (urea nitrogen) Sinus Rhythm -Right bundle branch block. ABNORMAL Invalid Interpretation Code [facility] [employer] Work Phone: EKG QRS axis -12 deg Invalid Interpretation Code [facility] [employer] Work Phone: P [place] 40 deg Invalid Interpretation Code [facility] [employer] Work Phone: SD Interval 138 ms Invalid Interpretation Code [facility] [employer] Work Phone: Pulse (Heart Rate) 76 /min Invalid Interpretation Code [facility] [employer] Work Phone: QRS Duration 136 ms Invalid Interpretation Code [facility] [employer] Work Phone: QT Interval new path ms Invalid Interpretation Code [facility] [employer] Work Phone: T Grayson -1 deg Invalid Interpretation Code [facility] [employer] Work Phone: Lab Report: Lipid Profileon 10-19-2015 Cholesterol 140 mg/dL Invalid Interpretation Code 200 [facility] [employer] Work Phone: HDL Cholesterol 35 mg/dL Low [facility] [employer] Work Phone: LDL Cholesterol 72 mg/dL Invalid Interpretation Code 0-130 [facility] [employer] Work Phone: Triglyceride 163 mg/dL Invalid Interpretation Code [facility] [employer] Work Phone: very low density lipoproteins 33 mg/dL Invalid Interpretation Code 5-40 [facility] [employer] Work Phone: Lab Report: Liver Profileon 10-19-2015 Alanine aminotransferase (ALT) 38 U/L Invalid Interpretation Code 12-78 [facility] [employer] Work Phone: Albumin 3.9 g/dL Invalid Interpretation Code 3.4-5.0 [facility] [employer] Work Phone: Alkaline phosphatase (ALP) 37 U/L Low 50-136 [facility] [employer] Work Phone: Aspartate aminotransferase (AST) 30 U/L Invalid Interpretation Code 15-37 [facility] [employer] Work Phone: Bilirubin (direct) 0.14 mg/dL Invalid Interpretation Code 0.00-0.30 [facility] [employer] Work Phone: Bilirubin (total) 0.60 mg/dL Invalid Interpretation Code 0.20-1.00 [facility] [employer] Work Phone: Globulin 3.1 g/dL Invalid Interpretation Code 2.3-3.5 [facility] [employer] Work Phone: Protein 7.0 g/dL Invalid Interpretation Code 6.4-8.2 [facility] [employer] Work Phone: Office Visit: [facility] 08-27-19 16 Fall risk assessment Invalid Interpretation Code [facility] [employer] Work Phone: Office Visiton 05-29-2014 cardiac risk group C Invalid Interpretation Code [facility] [employer] Work Phone: General cardiovascular disease 10Y risk [#] [place]D'Agost[place] N/A Invalid Interpretation Code [facility] [employer] Work Phone: Smoking cessation education (procedure) yes Invalid Interpretation Code [facility] [employer] Work Phone: Vital Signs Date Time Vital Sign Value Performing Clinician Facility 01-07-2025 03:21-0400 Body temperature 98.4 [degF] Dr. Keron Maciel MD Work Phone: [facility] 01-07-2025 03:21-0400 Diastolic blood pressure 87 mm[Hg] Dr. Keron Maciel MD Work Phone: [facility] 01-07-2025 03:21-0400 Heart rate 96 /min Dr. Keron Maciel MD Work Phone: [facility] 01-07-2025 03:21-0400 Respiratory rate 18 /min Dr. Keron Maciel MD Work Phone: [facility] 01-07-2025 03:21-0400 SaO2% (BldA) [Mass fraction] 98 % Dr. Keron Maciel MD Work Phone: [facility] 01-07-2025 03:21-0400 Systolic blood pressure 157 mm[Hg] Dr. Keron Maciel MD Work Phone: [facility] 01-07-2025 01:05-0400 Body height 162.[address] Keron Maciel MD Work Phone: [facility] 01-07-2025 01:05-0400 Body mass index (BMI) [Ratio] 38.8 kg/m2 Dr. Keron Maciel MD Work Phone: [facility] 01-07-2025 01:05-0400 Body weight 102.[address] Keron Maciel MD Work Phone: [facility] 01-06-2025 14:06-0400 Body height 162.[address] Keron Maciel MD Work Phone: [facility] 01-06-2025 14:06-0400 Body mass index (BMI) [Ratio] 38.6 kg/m2 Dr. Keron Maciel MD Work Phone: [facility] 01-06-2025 14:06-0400 Body temperature 98.4 [degF] Dr. Keron Maciel MD Work Phone: [facility] 01-06-2025 14:06-0400 Body weight 102.[address] Keron Maciel MD Work Phone: [facility] 01-06-2025 14:06-0400 Diastolic blood pressure 75 mm[Hg] Dr. Keron Maciel MD Work Phone: [facility] 01-06-2025 14:06-0400 Heart rate 63 /min Dr. Keron Maciel MD Work Phone: [facility] 01-06-2025 14:06-0400 Respiratory rate 16 /min Dr. Keron Maciel MD Work Phone: [facility] 01-06-2025 14:06-0400 SaO2% (BldA) [Mass fraction] 94 % Dr. Keron Maciel MD Work Phone: [facility] 01-06-2025 14:06-0400 Systolic blood pressure 134 mm[Hg] Dr. Keron Maciel MD Work Phone: [facility] 12-31-2024 17:18-0400 Body temperature 98.8 [degF] Dr. Keron Maciel MD Work Phone: [facility] 12-31-2024 17:18-0400 Diastolic blood pressure 96 mm[Hg] Dr. Keron Maciel MD Work Phone: [facility] 12-31-2024 17:18-0400 Heart rate 69 /min Dr. Keron Maciel MD Work Phone: [facility] 12-31-2024 17:18-0400 Respiratory rate 16 /min Dr. Keron Maciel MD Work Phone: [facility] 12-31-2024 17:18-0400 SaO2% (BldA) [Mass fraction] 96 % Dr. Keron Maciel MD Work Phone: [facility] 12-31-2024 17:18-0400 Systolic blood pressure 148 mm[Hg] Dr. Keron Maciel MD Work Phone: [facility] 12-31-2024 14:26-0400 Body height 162.[address] Keron Maciel MD Work Phone: [facility] 12-31-2024 14:26-0400 Body mass index (BMI) [Ratio] 39.1 kg/m2 Dr. Keron Maciel MD Work Phone: [facility] 12-31-2024 14:26-0400 Body weight 103.[address] Keron Maciel MD Work Phone: [facility] 12-30-2024 11:20-0400 Body height 160.[address] Keron Maciel MD Work Phone: [facility] 12-30-2024 11:20-0400 Body mass index (BMI) [Ratio] 39.8 kg/m2 Dr. Keron Maciel MD Work Phone: [facility] 12-30-2024 11:20-0400 Body temperature 98.4 [degF] Dr. Keron Maciel MD Work Phone: [facility] 12-30-2024 11:20-0400 Body weight 102.[address] Keron Maciel MD Work Phone: [facility] 12-30-2024 11:20-0400 Diastolic blood pressure 79 mm[Hg] Dr. Keron Maciel MD Work Phone: [facility] 12-30-2024 11:20-0400 Heart rate 74 /min Dr. Keron Maciel MD Work Phone: [facility] 12-30-2024 11:20-0400 Respiratory rate 16 /min Dr. Keron Maciel MD Work Phone: [facility] 12-30-2024 11:20-0400 SaO2% (BldA) [Mass fraction] 94 % Dr. Keron Maciel MD Work Phone: [facility] 12-30-2024 11:20-0400 Systolic blood pressure 144 mm[Hg] Dr. Keron Maciel MD Work Phone: [facility] 12-23-2024 13:40-0400 Body height 160.[address] Keron Maciel MD Work Phone: [facility] 12-23-2024 13:40-0400 Body mass index (BMI) [Ratio] 40.9 kg/m2 Dr. Keron Maciel MD Work Phone: [facility] 12-23-2024 13:40-0400 Body weight 104.[address] Keron Maciel MD Work Phone: [facility] 12-23-2024 13:40-0400 Diastolic blood pressure 67 mm[Hg] Dr. Keron Maciel MD Work Phone: [facility] 12-23-2024 13:40-0400 Heart rate 64 /min Dr. Keron Maciel MD Work Phone: [facility] 12-23-2024 13:40-0400 Respiratory rate 20 /min Dr. Keron Maciel MD Work Phone: [facility] 12-23-2024 13:40-0400 SaO2% (BldA) [Mass fraction] 95 % Dr. Keron Maciel MD Work Phone: [facility] 12-23-2024 13:40-0400 Systolic blood pressure 108 mm[Hg] Dr. Keron Maciel MD Work Phone: [facility] 12-21-2024 22:03-0400 Diastolic blood pressure 92 mm[Hg] Dr. Keron Maciel MD Work Phone: [facility] 12-21-2024 22:03-0400 Heart rate 86 /min Dr. Keron Maciel MD Work Phone: [facility] 12-21-2024 22:03-0400 Respiratory rate 18 /min Dr. Keron Maciel MD Work Phone: [facility] 12-21-2024 22:03-0400 SaO2% (BldA) [Mass fraction] 98 % Dr. Keron Maciel MD Work Phone: [facility] 12-21-2024 22:03-0400 Systolic blood pressure 165 mm[Hg] Dr. Keron Maciel MD Work Phone: [facility] 12-21-2024 20:36-0400 Body temperature 98 [degF] Dr. Keron Maciel MD Work Phone: [facility] 12-21-2024 16:08-0400 Body mass index (BMI) [Ratio] 40.8 kg/m2 Dr. Keron Maciel MD Work Phone: [facility] 12-21-2024 16:08-0400 Body weight 104.[address] Keron Maciel MD Work Phone: [facility] 12-21-2024 15:35-0400 Body height 160.[address] Keron Maciel MD Work Phone: [facility] 12-09-2024 14:04-0400 Body height 160.[address] Keron Maciel MD Work Phone: [facility] 12-09-2024 14:04-0400 Body mass index (BMI) [Ratio] 40.1 kg/m2 Dr. Keron Maciel MD Work Phone: [facility] 12-09-2024 14:04-0400 Body temperature 98.2 [degF] Dr. Keron Maciel MD Work Phone: [facility] 12-09-2024 14:04-0400 Body weight 102.[address] Keron Maciel MD Work Phone: [facility] 12-09-2024 14:04-0400 Diastolic blood pressure 72 mm[Hg] Dr. Keron Maciel MD Work Phone: [facility] 12-09-2024 14:04-0400 Heart rate 68 /min Dr. Keron Maciel MD Work Phone: [facility] 12-09-2024 14:04-0400 Respiratory rate 16 /min Dr. Keron Maciel MD Work Phone: [facility] 12-09-2024 14:04-0400 SaO2% (BldA) [Mass fraction] 93 % Dr. Keron Maciel MD Work Phone: [facility] 12-09-2024 14:04-0400 Systolic blood pressure 116 mm[Hg] Dr. Keron Maciel MD Work Phone: [facility] 11-25-2024 11:11-0400 Body height 160.[address] Keron Maciel MD Work Phone: [facility] 11-25-2024 11:11-0400 Body mass index (BMI) [Ratio] 40 kg/m2 Dr. Keron Maciel MD Work Phone: [facility] 11-25-2024 11:11-0400 Body temperature 98.6 [degF] Dr. Keron Maciel MD Work Phone: [facility] 11-25-2024 11:11-0400 Body weight 102.[address] Keron Maciel MD Work Phone: [facility] 11-25-2024 11:11-0400 Diastolic blood pressure 75 mm[Hg] Dr. Keron Maciel MD Work Phone: [facility] 11-25-2024 11:11-0400 Heart rate 77 /min Dr. Keron Maciel MD Work Phone: [facility] 11-25-2024 11:11-0400 Respiratory rate 16 /min Dr. Keron Maciel MD Work Phone: [facility] 11-25-2024 11:11-0400 SaO2% (BldA) [Mass fraction] 90 % Dr. Keron Maciel MD Work Phone: [facility] 11-25-2024 11:11-0400 Systolic blood pressure 146 mm[Hg] Dr. Keron Maciel MD Work Phone: [facility] 11-20-2024 00:56-0400 Body temperature 97.6 [degF] Dr. Keron Maciel MD Work Phone: [facility] 11-20-2024 00:56-0400 Diastolic blood pressure 7 mm[Hg] Dr. Keron Maciel MD Work Phone: [facility] 11-20-2024 00:56-0400 Heart rate 66 /min Dr. Keron Maciel MD Work Phone: [facility] 11-20-2024 00:56-0400 Respiratory rate 20 /min Dr. Keron Maciel MD Work Phone: [facility] 11-20-2024 00:56-0400 SaO2% (BldA) [Mass fraction] 91 % Dr. Keron Maciel MD Work Phone: [facility] 11-20-2024 00:56-0400 Systolic blood pressure 149 mm[Hg] Dr. Keron Maciel MD Work Phone: [facility] 11-19-2024 22:51-0400 Body mass index (BMI) [Ratio] 39.2 kg/m2 Dr. Keron Maciel MD Work Phone: [facility] 11-19-2024 22:51-0400 Body weight 100.[address] Keron Maciel MD Work Phone: [facility] 11-19-2024 22:48-0400 Body height 160.[address] Keron Maciel MD Work Phone: [facility] 08-01-2024 14:42-0500 Diastolic blood pressure 60 mm[Hg] Dr. Keron Maciel MD Work Phone: [facility] 08-01-2024 14:42-0500 Systolic blood pressure 106 mm[Hg] Dr. Keron Maciel MD Work Phone: [facility] 08-01-2024 13:55-0500 Body mass index (BMI) [Ratio] 39.3 kg/m2 Dr. Keron Maciel MD Work Phone: [facility] 08-01-2024 13:55-0500 Body temperature 97.5 [degF] Dr. Keron Maciel MD Work Phone: [facility] 08-01-2024 13:55-0500 Body weight 100.[address] Keron Maciel MD Work Phone: [facility] 08-01-2024 13:55-0500 Heart rate 89 /min Dr. Keron Maciel MD Work Phone: [facility] 08-01-2024 13:55-0500 Respiratory rate 17 /min Dr. Keron Maciel MD Work Phone: [facility] 08-01-2024 13:55-0500 SaO2% (BldA) [Mass fraction] 97 % Dr. Keron Maciel MD Work Phone: [facility] 07-25-2024 14:40-0500 Body mass index (BMI) [Ratio] 39.7 kg/m2 Dr. Keron Maciel MD Work Phone: [facility] 07-25-2024 14:40-0500 Body temperature 98.2 [degF] Dr. Keron Maciel MD Work Phone: [facility] 07-25-2024 14:40-0500 Body weight 101.[address] Keron Maciel MD Work Phone: [facility] 07-25-2024 14:40-0500 Diastolic blood pressure 83 mm[Hg] Dr. Keron Maciel MD Work Phone: [facility] 07-25-2024 14:40-0500 Heart rate 68 /min Dr. Keron Maciel MD Work Phone: [facility] 07-25-2024 14:40-0500 Respiratory rate 16 /min Dr. Keron Maciel MD Work Phone: [facility] 07-25-2024 14:40-0500 SaO2% (BldA) [Mass fraction] 96 % Dr. Keron Maciel MD Work Phone: [facility] 07-25-2024 14:40-0500 Systolic blood pressure 130 mm[Hg] Dr. Keron Maciel MD Work Phone: [facility] 09-14-2023 15:11-0400 Body height 162.[address] Keron Maciel Work Phone: [facility] 09-14-2023 15:11-0400 Body mass index (BMI) [Ratio] 38.7 kg/m2 Dr. Keron Maciel Work Phone: [facility] 09-14-2023 15:11-0400 Body temperature 97.3 [degF] Dr. Keron Maciel Work Phone: [facility] 09-14-2023 15:11-0400 Body weight 102.[address] Keron Maciel Work Phone: [facility] 09-14-2023 15:11-0400 Diastolic blood pressure 91 mm[Hg] Dr. Keron Maciel Work Phone: [facility] 09-14-2023 15:11-0400 Heart rate 87 /min Dr. Keron Maciel Work Phone: [facility] 09-14-2023 15:11-0400 Respiratory rate 17 /min Dr. Keron Maciel Work Phone: [facility] 09-14-2023 15:11-0400 SaO2% (BldA) [Mass fraction] 97 % Dr. Keron Maciel Work Phone: [facility] 09-14-2023 15:11-0400 Systolic blood pressure 167 mm[Hg] Dr. Keron Maciel Work Phone: [facility] 08-10-2023 15:48-0500 Body mass index (BMI) [Ratio] 39.4 kg/m2 Dr. Keron Maciel Work Phone: [facility] 02-22-2024 15:48-0500 Body temperature 97.7 [degF] Dr. Keron Maciel Work Phone: [facility] 08-10-2023 15:48-0500 Body weight 104.[address] Keron Maciel Work Phone: [facility] 08-10-2023 15:48-0500 Diastolic blood pressure 84 mm[Hg] Dr. Keron Maciel Work Phone: [facility] 08-10-2023 15:48-0500 Heart rate 78 /min Dr. Keron Maciel Work Phone: [facility] 08-10-2023 15:48-0500 Respiratory rate 14 /min Dr. Keron Maciel Work Phone: [facility] 08-10-2023 15:48-0500 SaO2% (BldA) [Mass fraction] 94 % Dr. Keron Maciel Work Phone: [facility] 08-10-2023 15:48-0500 Systolic blood pressure 128 mm[Hg] Dr. Keron Maciel Work Phone: [facility] 07-27-2023 14:30-0500 Body temperature 97.7 [degF] Dr. Keron Maciel Work Phone: [facility] 07-27-2023 14:30-0500 Body weight 104.[address] Keron Maciel Work Phone: [facility] 07-27-2023 14:30-0500 Diastolic blood pressure 67 mm[Hg] Dr. Keron Maciel Work Phone: [facility] 07-27-2023 14:30-0500 Heart rate 90 /min Dr. Keron Maciel Work Phone: [facility] 07-27-2023 14:30-0500 Respiratory rate 17 /min Dr. Keron Maciel Work Phone: [facility] 07-27-2023 14:30-0500 SaO2% (BldA) [Mass fraction] 97 % Dr. Keron Maciel Work Phone: [facility] 07-27-2023 14:30-0500 Systolic blood pressure 122 mm[Hg] Dr. Keron Maciel Work Phone: [facility] 07-24-2023 14:04-0500 Body mass index (BMI) [Ratio] 39.4 kg/m2 Dr. Keron Maciel Work Phone: [facility] 07-24-2023 14:04-0500 Body temperature 98.7 [degF] Dr. Keron Maciel Work Phone: [facility] 07-24-2023 14:04-0500 Body weight 104.[address] Keron Maciel Work Phone: [facility] 07-24-2023 14:04-0500 Diastolic blood pressure 90 mm[Hg] Dr. Keron Maciel Work Phone: [facility] 07-24-2023 14:04-0500 Heart rate 80 /min Dr. Keron Maciel Work Phone: [facility] 07-24-2023 14:04-0500 Respiratory rate 19 /min Dr. Keron Maciel Work Phone: [facility] 07-24-2023 14:04-0500 SaO2% (BldA) [Mass fraction] 96 % Dr. Keron Maciel Work Phone: [facility] 07-24-2023 14:04-0500 Systolic blood pressure 136 mm[Hg] Dr. Keron Maciel Work Phone: [facility] 07-16-2023 19:32-0500 Body temperature 98.1 [degF] Dr. Keron Maciel Work Phone: [facility] 07-16-2023 19:32-0500 Diastolic blood pressure 84 mm[Hg] Dr. Keron Maciel Work Phone: [facility] 07-16-2023 19:32-0500 Heart rate 82 /min Dr. Keron Maciel Work Phone: [facility] 07-16-2023 19:32-0500 Respiratory rate 16 /min Dr. Keron Maciel Work Phone: [facility] 07-16-2023 19:32-0500 SaO2% (BldA) [Mass fraction] 95 % Dr. Keron Maciel Work Phone: [facility] 07-16-2023 19:32-0500 Systolic blood pressure 146 mm[Hg] Dr. Keron Maciel Work Phone: [facility] 07-16-2023 14:57-0500 Body mass index (BMI) [Ratio] 40.2 kg/m2 Dr. Keron Maciel Work Phone: [facility] 07-16-2023 14:57-0500 Body weight 106.[address] Keron Maciel Work Phone: [facility] 10-18-2022 13:46-0400 Body height 162.[address] Keron Maceil Work Phone: [facility] 10-18-2022 13:46-0400 Body mass index (BMI) [Ratio] 40.5 kg/m2 Dr. Keron Maciel Work Phone: [facility] 10-18-2022 13:46-0400 Body temperature 93 [degF] Dr. Keron Maciel Work Phone: [facility] 10-18-2022 13:46-0400 Body weight 107.[address] Keron Maciel Work Phone: [facility] 10-18-2022 13:46-0400 Diastolic blood pressure 84 mm[Hg] Dr. Keron Maciel Work Phone: [facility] 10-18-2022 13:46-0400 Heart rate 84 /min Dr. Keron Maciel Work Phone: [facility] 10-18-2022 13:46-0400 Respiratory rate 18 /min Dr. Keron Maciel Work Phone: [facility] 10-18-2022 13:46-0400 SaO2% (BldA) [Mass fraction] 94 % Dr. Keron Maciel Work Phone: [facility] 10-18-2022 13:46-0400 Systolic blood pressure 146 mm[Hg] Dr. Keron Maciel Work Phone: [facility] 10-10-2022 20:09-0400 Diastolic blood pressure 70 mm[Hg] Dr. Keron Maciel Work Phone: [facility] 10-10-2022 20:09-0400 Heart rate 86 /min Dr. Keron Maciel Work Phone: [facility] 10-10-2022 20:09-0400 Systolic blood pressure 115 mm[Hg] Dr. Keron Maciel Work Phone: [facility] 10-10-2022 13:01-0400 Body mass index (BMI) [Ratio] 41 kg/m2 Dr. Keron Maciel Work Phone: [facility] 10-10-2022 13:01-0400 Body temperature 98 [degF] Dr. Keron Maciel Work Phone: [facility] 10-10-2022 13:01-0400 Body weight 108.[address] Keron Maciel Work Phone: [facility] 10-10-2022 13:01-0400 Respiratory rate 17 /min Dr. Keron Maciel Work Phone: [facility] 10-10-2022 13:01-0400 SaO2% (BldA) [Mass fraction] 98 % Dr. Keron Maciel Work Phone: [facility] 09-28-2022 14:32-0400 Body temperature 98.8 [degF] Dr. Keron Maciel Work Phone: [facility] 09-28-2022 14:32-0400 Body weight 109.[address] Keron Maciel Work Phone: [facility] 09-28-2022 14:32-0400 Diastolic blood pressure 80 mm[Hg] Dr. Keron Maciel Work Phone: [facility] 09-28-2022 14:32-0400 Heart rate 76 /min Dr. Keron Maciel Work Phone: [facility] 09-28-2022 14:32-0400 Respiratory rate 20 /min Dr. Keron Maciel Work Phone: [facility] 09-28-2022 14:32-0400 SaO2% (BldA) [Mass fraction] 95 % Dr. Keron Maciel Work Phone: [facility] 09-28-2022 14:32-0400 Systolic blood pressure 142 mm[Hg] Dr. Keron Maciel Work Phone: [facility] 09-08-2022 14:03-0400 Body height 162.[address] Keron Maciel Work Phone: [facility] 09-08-2022 14:02-0400 Body mass index (BMI) [Ratio] 41.3 kg/m2 Dr. Keron Maciel Work Phone: [facility] 09-08-2022 14:02-0400 Body weight 109.[address] Keron Maciel Work Phone: [facility] 09-08-2022 14:02-0400 Diastolic blood pressure 71 mm[Hg] Dr. Keron Maciel Work Phone: [facility] 09-08-2022 14:02-0400 Heart rate 76 /min Dr. Keron Maciel Work Phone: [facility] 09-08-2022 14:02-0400 Respiratory rate 22 /min Dr. Keron Maciel Work Phone: [facility] 09-08-2022 14:02-0400 SaO2% (BldA) [Mass fraction] 97 % Dr. Keron Maciel Work Phone: [facility] 09-08-2022 14:02-0400 Systolic blood pressure 118 mm[Hg] Dr. Keron Maciel Work Phone: [facility] 08-03-2022 07:45-0500 Body mass index (BMI) [Ratio] 40.6 kg/m2 Dr. Keron Maciel Work Phone: [facility] 08-03-2022 07:45-0500 Body temperature 97 [degF] Dr. Keron Maciel Work Phone: [facility] 08-03-2022 07:45-0500 Body weight 107.[address] Keron Maciel Work Phone: [facility] 08-03-2022 07:45-0500 Diastolic blood pressure 83 mm[Hg] Dr. Keron Maciel Work Phone: [facility] 08-03-2022 07:45-0500 Heart rate 86 /min Dr. Keron Maciel Work Phone: [facility] 08-03-2022 07:45-0500 Respiratory rate 20 /min Dr. Keron Maciel Work Phone: [facility] 08-03-2022 07:45-0500 SaO2% (BldA) [Mass fraction] 94 % Dr. Keron Maciel Work Phone: [facility] 08-03-2022 07:45-0500 Systolic blood pressure 154 mm[Hg] Dr. Keron Maciel Work Phone: [facility] 02-25-2022 09:02-0400 Body height 162.[address] Keron Maciel Work Phone: [facility] Work Phone: 02-25-2022 09:02-0400 Body mass index (BMI) [Ratio] 41 kg/m2 Dr. Keron Maciel Work Phone: [facility] Work Phone: 02-25-2022 09:02-0400 Body weight 108.[address] Keron Maciel Work Phone: [facility] Work Phone: 02-25-2022 09:02-0400 Diastolic blood pressure 79 mm[Hg] Dr. Keron Maciel Work Phone: [facility] Work Phone: 02-25-2022 09:02-0400 Heart rate 78 /min Dr. Keron Maciel Work Phone: [facility] Work Phone: 02-25-2022 09:02-0400 Respiratory rate 18 /min Dr. Keron Maciel Work Phone: [facility] Work Phone: 02-25-2022 09:02-0400 SaO2% (BldA) [Mass fraction] 98 % Dr. Keron Maciel Work Phone: [facility] Work Phone: 02-25-2022 09:02-0400 Systolic blood pressure 137 mm[Hg] Dr. Keron Maciel Work Phone: [facility] Work Phone: 02-14-2022 13:10-0400 Body height 162.[address] Keron Maciel Work Phone: [facility] Work Phone: 02-14-2022 13:10-0400 Body mass index (BMI) [Ratio] 41.1 kg/m2 Dr. Keron Maciel Work Phone: [facility] Work Phone: 02-14-2022 13:10-0400 Body temperature 98.2 [degF] Dr. Keron Maciel Work Phone: [facility] Work Phone: 02-14-2022 13:10-0400 Body weight 108.[address] Keron Maciel Work Phone: [facility] Work Phone: 02-14-2022 13:10-0400 Diastolic blood pressure 76 mm[Hg] Dr. Keron Maciel Work Phone: [facility] Work Phone: 02-14-2022 13:10-0400 Heart rate 75 /min Dr. Keron Maciel Work Phone: [facility] Work Phone: 02-14-2022 13:10-0400 Respiratory rate 22 /min Dr. Keron Maciel Work Phone: [facility] Work Phone: 02-14-2022 13:10-0400 SaO2% (BldA) [Mass fraction] 98 % Dr. Keron Maciel Work Phone: [facility] Work Phone: 02-14-2022 13:10-0400 Systolic blood pressure 126 mm[Hg] Dr. Keron Maciel Work Phone: [facility] Work Phone: 02-08-2022 13:22-0400 Body temperature 98.2 [degF] Dr. Keron Maciel Work Phone: [facility] Work Phone: 02-08-2022 13:22-0400 Diastolic blood pressure 54 mm[Hg] Dr. Keron Maciel Work Phone: [facility] Work Phone: 02-08-2022 13:22-0400 Heart rate 86 /min Dr. Keron Maciel Work Phone: [facility] Work Phone: 02-08-2022 13:22-0400 Respiratory rate 14 /min Dr. Keron Maciel Work Phone: [facility] Work Phone: 02-08-2022 13:22-0400 SaO2% (BldA) [Mass fraction] 95 % Dr. Keron Maciel Work Phone: [facility] Work Phone: 02-08-2022 13:22-0400 Systolic blood pressure 108 mm[Hg] Dr. Keron Maciel Work Phone: [facility] Work Phone: 02-01-2022 16:28-0400 Diastolic blood pressure 78 mm[Hg] Dr. Keron Maciel Work Phone: [facility] Work Phone: 02-01-2022 16:28-0400 Heart rate 78 /min Dr. Keron Maciel Work Phone: [facility] Work Phone: 02-01-2022 16:28-0400 Respiratory rate 16 /min Dr. Keron Maciel Work Phone: [facility] Work Phone: 02-01-2022 16:28-0400 SaO2% (BldA) [Mass fraction] 98 % Dr. Keron Maciel Work Phone: [facility] Work Phone: 02-01-2022 16:28-0400 Systolic blood pressure 136 mm[Hg] Dr. Keron Maciel Work Phone: [facility] Work Phone: 02-01-2022 13:24-0400 Body height 162.[address] Keron Maciel Work Phone: [facility] Work Phone: 02-01-2022 13:24-0400 Body mass index (BMI) [Ratio] 40.8 kg/m2 Dr. Keron Maciel Work Phone: [facility] Work Phone: 02-01-2022 13:24-0400 Body temperature 97.8 [degF] Dr. Keron Maciel Work Phone: [facility] Work Phone: 02-01-2022 13:24-0400 Body weight 107.[address] Keron Maciel Work Phone: [facility] Work Phone: 10-29-2021 07:13-0400 Body height 162.[address] Keron Maciel Work Phone: [facility] Work Phone: 10-29-2021 07:13-0400 Body weight 108.[address] Keron Maciel Work Phone: [facility] Work Phone: 10-28-2021 08:17-0400 Body mass index (BMI) [Ratio] 41.1 kg/m2 Dr. Keron Maciel Work Phone: [facility] Work Phone: 10-26-2021 08:19-0400 Body weight 108.[address] Keron Maciel Work Phone: [facility] Work Phone: 10-26-2021 08:19-0400 Diastolic blood pressure 72 mm[Hg] Dr. Keron Maciel Work Phone: [facility] Work Phone: 10-26-2021 08:19-0400 Heart rate 77 /min Dr. Keron Maciel Work Phone: [facility] Work Phone: 10-26-2021 08:19-0400 Respiratory rate 22 /min Dr. Keron Maciel Work Phone: [facility] Work Phone: 10-26-2021 08:19-0400 SaO2% (BldA) [Mass fraction] 96 % Dr. Keron Maciel Work Phone: [facility] Work Phone: 10-26-2021 08:19-0400 Systolic blood pressure 108 mm[Hg] Dr. Keron Maciel Work Phone: [facility] Work Phone: 10-26-2021 08:19-0400 Body weight 108.[address] Keron Maciel Work Phone: [facility] Work Phone: 10-26-2021 08:19-0400 Diastolic blood pressure 72 mm[Hg] Dr. Keron Maciel Work Phone: [facility] Work Phone: 10-26-2021 08:19-0400 Heart rate 77 /min Dr. Keron Maciel Work Phone: [facility] Work Phone: 10-26-2021 08:19-0400 Respiratory rate 22 /min Dr. Keron Maciel Work Phone: [facility] Work Phone: 10-26-2021 08:19-0400 SaO2% (BldA) [Mass fraction] 96 % Dr. Keron Maciel Work Phone: [facility] Work Phone: 10-26-2021 08:19-0400 Systolic blood pressure 108 mm[Hg] Dr. Keron Maciel Work Phone: [facility] Work Phone: 10-13-2021 13:03-0400 Body mass index (BMI) [Ratio] 40.8 kg/m2 Dr. Keron Maciel Work Phone: [facility] Work Phone: 10-13-2021 13:03-0400 Body temperature 96.9 [degF] Dr. Keron Maciel Work Phone: [facility] Work Phone: 10-13-2021 13:03-0400 Body weight 108.[address] Keron Maciel Work Phone: [facility] Work Phone: 10-13-2021 13:03-0400 Diastolic blood pressure 70 mm[Hg] Dr. Keron Maciel Work Phone: [facility] Work Phone: 10-13-2021 13:03-0400 Heart rate 95 /min Dr. Keron Maciel Work Phone: [facility] Work Phone: 10-13-2021 13:03-0400 Respiratory rate 16 /min Dr. Keron Maciel Work Phone: [facility] Work Phone: 10-13-2021 13:03-0400 SaO2% (BldA) [Mass fraction] 95 % Dr. Keron Maciel Work Phone: [facility] Work Phone: 10-13-2021 13:03-0400 Systolic blood pressure 130 mm[Hg] Dr. Keron Maciel Work Phone: [facility] Work Phone: 10-13-2021 13:03-0400 Body height 162.[address] Keron Maciel Work Phone: [facility] Work Phone: 10-13-2021 13:03-0400 Body mass index (BMI) [Ratio] 40.8 kg/m2 Dr. Keron Maciel Work Phone: [facility] Work Phone: 10-13-2021 13:03-0400 Body temperature 96.9 [degF] Dr. Keron Maciel Work Phone: [facility] Work Phone: 10-13-2021 13:03-0400 Body weight 108.[address] Keron Maciel Work Phone: [facility] Work Phone: 10-13-2021 13:03-0400 Diastolic blood pressure 70 mm[Hg] Dr. Keron Maciel Work Phone: [facility] Work Phone: 10-13-2021 13:03-0400 Heart rate 95 /min Dr. Keron Maciel Work Phone: [facility] Work Phone: 10-13-2021 13:03-0400 Respiratory rate 16 /min Dr. Keron Maciel Work Phone: [facility] Work Phone: 10-13-2021 13:03-0400 SaO2% (BldA) [Mass fraction] 95 % Dr. Keron Maciel Work Phone: [facility] Work Phone: 10-13-2021 13:03-0400 Systolic blood pressure 130 mm[Hg] Dr. Keron Maciel Work Phone: [facility] Work Phone: 10-11-2021 13:12-0400 Body mass index (BMI) [Ratio] 40.8 kg/m2 Dr. Keron Maciel Work Phone: [facility] Work Phone: 10-11-2021 13:12-0400 Body weight 108.[address] Keron Maciel Work Phone: [facility] Work Phone: 10-11-2021 13:12-0400 Diastolic blood pressure 68 mm[Hg] Dr. Keron Maciel Work Phone: [facility] Work Phone: 10-11-2021 13:12-0400 Heart rate 80 /min Dr. Keron Maciel Work Phone: [facility] Work Phone: 10-11-2021 13:12-0400 Respiratory rate 17 /min Dr. Keron Maciel Work Phone: [facility] Work Phone: 10-11-2021 13:12-0400 SaO2% (BldA) [Mass fraction] 96 % Dr. Keron Maciel Work Phone: [facility] Work Phone: 10-11-2021 13:12-0400 Systolic blood pressure 114 mm[Hg] Dr. Keron Maciel Work Phone: [facility] Work Phone: 10-11-2021 13:12-0400 Body mass index (BMI) [Ratio] 40.8 kg/m2 Dr. Keron Maciel Work Phone: [facility] Work Phone: 10-11-2021 13:12-0400 Body weight 108.[address] Keron Maciel Work Phone: [facility] Work Phone: 10-11-2021 13:12-0400 Diastolic blood pressure 68 mm[Hg] Dr. Keron Maciel Work Phone: [facility] Work Phone: 10-11-2021 13:12-0400 Heart rate 80 /min Dr. Keron Maciel Work Phone: [facility] Work Phone: 10-11-2021 13:12-0400 Respiratory rate 17 /min Dr. Keron Maciel Work Phone: [facility] Work Phone: 10-11-2021 13:12-0400 SaO2% (BldA) [Mass fraction] 96 % Dr. Keron Maciel Work Phone: [facility] Work Phone: 10-11-2021 13:12-0400 Systolic blood pressure 114 mm[Hg] Dr. Keron Maciel Work Phone: [facility] Work Phone: 09-07-2021 13:29-0400 Body mass index (BMI) [Ratio] 40.6 kg/m2 Dr. Keron Maciel Work Phone: [facility] Work Phone: 09-07-2021 13:29-0400 Body temperature 96.3 [degF] Dr. Keron Maciel Work Phone: [facility] Work Phone: 09-07-2021 13:29-0400 Body weight 107.[address] Keron Maciel Work Phone: [facility] Work Phone: 09-07-2021 13:29-0400 Diastolic blood pressure 80 mm[Hg] Dr. Keron Maciel Work Phone: [facility] Work Phone: 09-07-2021 13:29-0400 Heart rate 87 /min Dr. Keron Maciel Work Phone: [facility] Work Phone: 09-07-2021 13:29-0400 Respiratory rate 20 /min Dr. Keron Maciel Work Phone: [facility] Work Phone: 09-07-2021 13:29-0400 SaO2% (BldA) [Mass fraction] 97 % Dr. Keron Maciel Work Phone: [facility] Work Phone: 09-07-2021 13:29-0400 Systolic blood pressure 140 mm[Hg] Dr. Keron Maciel Work Phone: [facility] Work Phone: 08-05-2021 05:23-0500 Body temperature 97.2 [degF] Dr. Keron Maciel Work Phone: [facility] Work Phone: 08-05-2021 05:23-0500 Body weight 106.[address] Keron Maciel Work Phone: [facility] Work Phone: 08-05-2021 05:23-0500 Diastolic blood pressure 81 mm[Hg] Dr. Keron Maciel Work Phone: [facility] Work Phone: 08-05-2021 05:23-0500 Heart rate 86 /min Dr. Keron Maciel Work Phone: [facility] Work Phone: 08-05-2021 05:23-0500 Respiratory rate 18 /min Dr. Keron Maciel Work Phone: [facility] Work Phone: 08-05-2021 05:23-0500 SaO2% (BldA) [Mass fraction] 97 % Dr. Keron Maciel Work Phone: [facility] Work Phone: 08-05-2021 05:23-0500 Systolic blood pressure 145 mm[Hg] Dr. Keron Maciel Work Phone: [facility] Work Phone: 07-13-2021 09:20-0500 Diastolic blood pressure 68 mm[Hg] Dr. Keron Maciel Work Phone: [facility] Work Phone: 07-13-2021 09:20-0500 Heart rate 87 /min Dr. Keron Maciel Work Phone: [facility] Work Phone: 07-13-2021 09:20-0500 SaO2% (BldA) [Mass fraction] 98 % Dr. Keron Maciel Work Phone: [facility] Work Phone: 07-13-2021 09:20-0500 Systolic blood pressure 120 mm[Hg] Dr. Keron Maciel Work Phone: [facility] Work Phone: 01-18-2021 13:35-0400 Body mass index (BMI) [Ratio] 40.6 kg/m2 Dr. Keron Maciel Work Phone: [facility] Work Phone: 01-18-2021 13:35-0400 Body mass index (BMI) [Ratio] 40.6 kg/m2 Dr. Keron Maciel Work Phone: [facility] Work Phone: 07-22-2020 09:45-0500 Body mass index (BMI) [Ratio] 40.8 kg/m2 Dr. Keron Maciel Work Phone: [facility] Work Phone: 05-09-2017 08:43-0500 BMI (Body Mass Index) 41.78 kg/m2 Saurabh Benites MD [facility] [id number] Work Phone: 05-09-2017 08:43-0500 Body Temperature 97.8 [degF] Saurabh Benites MD [facility] Work Phone: 05-09-2017 08:43-0500 BP Diastolic 83 mm[Hg] Saurabh Benites MD [facility] Work Phone: 05-09-2017 08:43-0500 BP Systolic 148 mm[Hg] Saurabh Benites MD [facility] Work Phone: 05-09-2017 08:43-0500 Height 160.02 cm Saurabh Benites MD [facility] Work Phone: 05-09-2017 08:43-0500 Pulse (Heart Rate) 74 /min Saurabh Benites MD [facility] Work Phone: 05-09-2017 08:43-0500 Respiratory Rate 20 /min Saurabh Benites MD [facility] Work Phone: 05-09-2017 08:43-0500 Weight 107 kg Saurabh Benites MD [facility] Work Phone: 05-31-2016 10:22-0500 Body Temperature 97.34 [degF] Saurabh Benites MD [facility] Work Phone: 05-31-2016 10:22-0500 BSA (Body Surface Area) 2.06 m2 Saurabh Benites MD [facility] Work Phone: 05-31-2016 10:22-0500 Height 160.02 cm Saurabh Benites MD [facility] Work Phone: 05-31-2016 10:22-0500 Weight 105.45 kg Saurabh Benites MD [facility] Work Phone: 03-08-2016 14:31-0400 Pulse Oximetry 97 % Saurabh Benites MD [facility] Work Phone: Encounters Encounter Date Encounter Type Care Provider Facility Start: 01-07-[address] Beatrice Maciel MD Work Phone: -[facility] Start: 01-07-2025 Dr. Junior Valvedre MD -[facility] Work Phone: Start: 01-06-2025 End: 01-06-2025 ambulatory Keron Maciel Facility:[facility] Start: 01-06-2025 End: 01-06-2025 Dr. Keron Maciel MD -[facility] Work Phone: Start: 01-02-2025 Dr. Patti Steinberg MD -[facility] Start: 01-02-2025 ambulatory Patti Steinberg Facility:[facility] Start: 12-31-2024 End: 12-31-2024 Dr. Keron Maciel MD Work Phone: -Emergency Department Work Phone: Start: 12-31-2024 End: 12-31-2024 Emergency department patient visit Dr. Keron Maciel MD Work Phone: -Emergency Department Start: 12-30-2024 End: 12-30-2024 Dr. Keron Maciel MD -[facility] Work Phone: Start: 12-30-2024 End: 12-30-[address] Keron Maciel MD Work Phone: -[facility] Start: 12-23-2024 End: 12-23-2024 Patient encounter procedure Zhen Simons CHILD CARE EDUCATION COORDINATOR-C -[facility] Work Phone: Start: 12-23-2024 End: 12-23-2024 Zhen Simons CHILD CARE EDUCATION COORDINATOR-C -[facility] Work Phone: Start: 12-23-2024 End: 12-23-[address] Keron Maciel MD Work Phone: -[facility] Start: 12-21-2024 End: 12-21-2024 Dr. Derick Sorenson DO -Emergency [facility] Work Phone: Start: 12-21-2024 End: 12-21-2024 Emergency [...] Start: 12-13-2024 End: 12-13-2024 ambulatory BARBIE NOVA Facility:[facility] Start: 12-09-2024 End: 12-09-[address] Keron Maciel MD Work Phone: -Radiology [facility] Start: 12-09-2024 End: 12-09-[address] Keron Maciel MD -Radiology [facility] Work Phone: Start: 12-09-2024 End: 12-09-2024 Dr. Keron Maciel MD -Radiology [facility] Work Phone: Start: 12-09-2024 End: 12-09-[address] Keron Maciel MD -[facility] Work Phone: Start: 12-09-2024 End: 12-09-2024 Dr. Keron Maciel MD -[facility] Work Phone: Start: 12-09-2024 End: 12-09-[address] Keron Maciel MD Work Phone: [facility] Work Phone: Start: 12-09-2024 End: 12-09-2024 ambulatory Keron Maciel Facility:[facility] Start: 11-25-2024 End: 11-25-[address] Keron Maciel MD Work Phone: [facility] Work Phone: Start: 11-25-2024 End: 11-25-[address] Keron Maciel MD -[facility] Work Phone: Start: 11-25-2024 End: 11-25-2024 Dr. Keron Maciel MD -[facility] Work Phone: Start: 11-25-2024 End: 11-25-[address] Keron Maciel MD -[facility] Work Phone: Start: 11-25-2024 End: 11-25-2024 Dr. Keron Maciel MD -[facility] Work Phone: Start: 11-25-2024 End: 11-25-[address] Keron Maciel MD Work Phone: [facility] Work Phone: Start: 11-25-2024 End: 11-25-2024 ambulatory Keron Maciel Facility:[facility] Start: 11-19-2024 End: 11-20-2024 Helioney Corrales -Emergency Departmen t Work Phone: Start: 11-19-2024 End: 11-20-2024 Emergency department patient visit Helio Corrales -Emergency Department Work Phone: Start: 09-06-2024 End: 09-06-2024 ambulatory BARBIE NOVA Facility:[facility] Start: 09-06-2024 End: 09-06-2024 Patient encounter procedure Barbie Nova Work Phone: Podiatry Comment on above: Onychomycosis (Prima ry Dx); Pain in toe of left foot; Pain in toe of right foot; Diabetic polyneuropathy associated with type 2 diabetes mellitus (HCC); Venous insufficiency Start: 08-01-2024 End: 08-01-[address] Rich Padgett MD -[facility] Work Phone: Start: 08-01-2024 End: 08-01-2024 ambulatory Keron Maciel Facility:[facility] Start: 07-25-2024 End: 07-25-[address] Keron Maciel MD -[facility] Work Phone: Start: 07-25-2024 End: 07-25-2024 ambulatory Keron Maciel Facility:[facility] Start: 06-24-2024 End: 06-24-2024 ambulatory Keron Maciel Facility:[facility] Start: 06-24-2024 End: 06-24-2024 ambulatory Joan Serna Facility:[facility] Start: 06-15-2024 ambulatory David Ashton Facility:[facility] Start: 06-15-2024 End: 06-16-2024 ambulatory Amalia Moncada Facility:[facility] Start: 06-06-2024 End: 06-06-2024 ambulatory BARBIE NOVA Facility:[facility] Start: 06-06-2024 End: 06-06-2024 Patient encounter procedure Barbie Nova Work Phone: Podiatry Comment on above: Onychomycosis (Prima ry Dx); Pain in toe of left foot; Pain in toe of right foot; Diabetic polyneuropathy associated with type 2 diabetes mellitus ([facility]) Start: 05-20-2024 End: 05-20-2024 ambulatory [facility] Facility:[facility] Start: 05-09-2024 End: 05-09-2024 ambulatory [facility] Facility:[facility] Start: 04-22-2024 End: 04-22-2024 ambulatory [facility] Facility:[facility] Start: 03-28-2024 End: 03-28-2024 ambulatory [facility] Start: 03-27-2024 End: 03-27-2024 ambulatory [facility] Facility:[facility] Start: 03-14-2024 End: 03-14-2024 ambulatory [facility] Facility:[facility] Start: 03-07-2024 End: 03-07-2024 ambulatory [facility] Facility:[facility] Start: 02-29-2024 End: 02-29-2024 ambulatory BARBIE NOVA Facility:[facility] Start: 02-29-2024 End: 02-29-2024 Patient encounter procedure Barbie Nova Work Phone: Podiatry Comment on above: Onychomycosis (Prima ry Dx); Pain in toe of left foot; Pain in toe of right foot; Diabetic polyneuropathy associated with type 2 diabetes mellitus ([facility]) Start: 02-26-2024 End: 02-26-2024 [facility] Start: 01-18-2024 End: 01-18-2024 ambulatory [facility] Facility:[facility] Start: 01-10-2024 End: 01-10-2024 ambulatory Geo Saeed Facility:[facility] Start: 11-16-2023 End: 11-16-2023 Patient encounter procedure Barbie Nova Work Phone: Podiatry Comment on above: Onychomycosis (Prima ry Dx); Pain in toe of left foot; Pain in toe of right foot; Diabetic polyneuropathy associated with type 2 diabetes mellitus (HCC) Start: 09-22-2023 End: 09-22-[address] Keron Maciel Work Phone: [facility] Work Phone: Start: 09-22-2023 End: 09-22-[address] Keron Maciel Work Phone: [facility]-Laboratory Work Phone: Start: 09-14-2023 End: 09-14-[address] Keron Maciel Work Phone: [facility] Work Phone: Start: 08-10-2023 End: 08-10-[address] Keron Maciel Work Phone: [facility] Work Phone: Start: 07-31-2023 End: 07-31-2023 Patient encounter procedure Barbie Noav Work Phone: Podiatry Comment on above: Onychomycosis (Prima ry Dx); Pain in toe of left foot; Pain in toe of right foot; Xerosis cutis; Diabetic polyneuropathy associated with diabetes mellitus due to underlying condition ([facility]); Callus of heel Start: 07-31-2023 End: 07-31-2023 Subsequent hospital visit by physician Xr [facility] Work Phone: Radiology Start: 07-27-2023 End: 07-27-[address] Keron Maciel Work Phone: [facility] Neurology Work Phone: Start: 07-24-2023 End: 07-24-[address] Keron Maciel Work Phone: [facility] Work Phone: Start: 07-16-2023 End: 07-16-2023 Emergency department patient visit Dr. Keron Maciel Work Phone: [facility]-Emergency Department Work Phone: Start: 12-09-2022 End: 12-09-[address] Keron Maciel Work Phone: [facility] Work Phone: Start: 12-09-2022 End: 12-09-[address] Keron Maciel Work Phone: [facility]-Physical Therapy Start: 10-18-2022 End: 10-18-[address] Keron Maciel Work Phone: [facility] Endocrinology Start: 10-10-2022 End: 10-10-[address] Keron Maciel Work Phone: [facility] Neurology Start: 10-05-2022 End: 10-05-[address] Keron Maciel Work Phone: [facility]-Radiology, [facility] Start: 09-28-2022 End: 09-28-[address] Keron Maciel Work Phone: [facility] Work Phone: Start: 09-28-2022 End: 09-28-[address] Keron Maciel Work Phone: [facility]Laboratory Start: 09-28-2022 End: 09-28-[address] Keron Maciel Work Phone: [facility] Start: 09-08-2022 End: 09-08-[address] Keron Maciel Work Phone: [facility] Start: 09-07-2022 End: 09-07-[address] Keron Maciel Work Phone: [facility] Work Phone: Start: 09-07-2022 End: 09-07-[address] Keron Maciel Work Phone: [facility]-Radiology, [facility] Start: 08-03-2022 End: 08-03-[address] Keron Maciel Work Phone: [facility]-Pulmonary Medicine [facility] Start: 03-03-2022 End: 03-03-[address] Keron Maciel Work Phone: [facility] Work Phone: Start: 03-03-2022 End: 03-03-[address] Keron Maciel Work Phone: [facility]Laboratory Start: 02-25-2022 End: 02-25-[address] Keron Maciel Work Phone: [facility] Start: 02-17-2022 Non-patient / Non-visit Dr. Madeleine Maciel Work Phone: [facility] Internal [facility] Start: 02-16-2022 End: 02-16-[address] Keron Maciel Work Phone: [facility] Work Phone: Start: 02-16-2022 End: 02-16-[address] [facility] Start: 02-14-2022 End: 02-14-[address] Keron Maciel Work Phone: [facility] Internal Medicine Start: 02-08-2022 End: 02-08-[address] Keron Maciel Work Phone: [facility] Internal Medicine Start: 02-01-2022 End: 02-01-2022 Emergency department patient visit Dr. Keron Maciel Work Phone: [facility]-Emergency Department Start: 10-29-2021 End: 10-29-2021 Admission to same day surgery center Dr. Keron Maciel Work Phone: [facility]-[employer] [employer]/Special Procedures Start: 10-26-2021 End: 10-26-[address] Keron Maciel Work Phone: [facility] Start: 10-13-2021 End: 10-13-[address] Keron Maciel Work Phone: [facility]-Laboratory, [facility] Start: 10-13-2021 End: 10-13-[address] Keron Maciel Work Phone: [facility] Internal Medicine Start: 10-11-2021 End: 10-11-[address] Keron Maciel Work Phone: [facility] Neurology Start: 09-07-2021 End: 09-07-[address] Keron Maciel Work Phone: [facility] Endocrinology Start: 08-05-2021 End: 08-05-[address] Keron Maciel Work Phone: [facility]-Pulmonary Medicine [facility] Start: 07-13-2021 End: 07-13-[address] Keron Maciel Work Phone: [facility] Neurology Start: 06-22-2021 End: 06-22-[address] Keron Maciel Work Phone: [facility]-Laboratory Procedures Date Procedure Procedure Detail Performing [...] CT of head without contrast Dr. Keron Maceil MD Work Phone: Start: 12-21-2024 CT of [...] PA-C Work Phone: Start: 09-06-2016 End: 09-06-2016 ENTRY ENGINEER Audelia Espinoza PA-C Work Phone: Start: 09-06-2016 End: 09-06-2016 Follow Up Appt 6 months Audelia Espinoza PA-C Work Phone: Start: 09-06-2016 End: 09-06-2016 Follow Up Appt Other Audelia Espinoza PA-C Work Phone: Start: 08-22-2016 End: 09-07-2016 DMB Lela Sherman PUBLIC RELATIONS ACCOUNT SUPERVISOR Work Phone: Start: 08-22-2016 End: 09-07-2016 [facility] compl spec&colr d Lela Sherman PUBLIC RELATIONS ACCOUNT SUPERVISOR Work Phone: Start: 08-22-2016 End: 09-07-2016 Follow Up Appt 3 months Lela fonseca PUBLIC RELATIONS ACCOUNT SUPERVISOR Work Phone: Start: 08-22-2016 End: 08-23-2016 Natriuretic peptide B [Mass/volume] in Blood Lela Sherman PUBLIC RELATIONS ACCOUNT SUPERVISOR Work Phone: Start: 06-08-2016 End: 08-18-2016 *MISC - Miscellaneous Lab Test #1 Lela Sherman PUBLIC RELATIONS ACCOUNT SUPERVISOR Work Phone: Start: 05-20-2016 End: 05-20-2016 Follow [...] Phone: Start: 08-06-2015 End: 08-06-2015 *BMP David Ahston MD Start: 08-06-2015 End: 08-06-2015 CBC W [...] disease History of coronary artery stent placement Zhne Simons CHILD CARE EDUCATION COORDINATOR-C Comment on above: RUDDY to Prox-Mid LAD [...] David Ashton MD Start: 12-04-2014 End: 12-04-2014 ENTRY ENGINEER Audelia Espinoza PA-C Work Phone: Start: 12-04-2014 [...] 05-29-2014 Follow Up Appt 6 months Libia Lui Start: 05-29-2014 End: 05-29-2014 CAROLINE Ashton MD Start: 12-31-2013 End: 12-31-2013 ENTRY ENGINEER Audelia Espinoza PA-C Work Phone: Start: 12-31-2013 [...] DTaP,Tdap,Td Vaccine (4 - Td or Tdap) [facility] Start: 02-02-2032 Urine microalbumin profile DTaP,Tdap,Td Vaccine (3 - Td or Tdap) [facility] Start: 03-21-2025 End: 03-21-2025 Patient encounter procedure 03/21/2025 1:40 PM EDT Office Visit Podiatry [address] [place], [place] [id number] Barbie Nova [address] [place] [address] 3 month follow up nail care Podiatry Comment on above: 3 month follow up nail care Start: 02-17-2025 Influenza vaccination Influenza Vaccine (Season Ended) [facility] Start: 01-07-2025 Verification routine [facility] Start: 01-07-2025 Admission procedure [facility] Start: 01-07-2025 Hospital admission, emergency, from emergency room, medical nature [facility] Start: 01-07-2025 End: 01-07-2025 [facility] Start: 01-07-2025 [facility] Start: 12-31-2024 [facility] Start: 12-23-2024 Evaluation of diagnostic study results [facility] Start: 12-21-2024 [facility] Start: 12-21-2024 [facility] Start: 12-06-2024 End: 12-06-2024 Patient encounter procedure 12/06/2024 3:40 PM EDT Office Visit Podiatry [address] [place] [id number] Barbie Nova [address] [place] [address] 3 mo f/u Podiatry Comment on above: 3 mo f/u Start: 11-25-2024 Basic metabolic 2008 panel with ionized calcium - Serum or Plasma [facility] Start: 11-25-2024 CBC W Auto Differential panel - Blood [facility] Start: 11-25-2024 Natriuretic peptide.B prohormone N-Terminal [Mass/volume] in Serum or Plasma [facility] Start: 11-25-2024 Evaluation of diagnostic study results [facility] Start: 11-20-2024 End: 11-20-2024 [facility] Start: 11-19-2024 Bacteria identified in Urine by Culture Urine Culture [facility] Start: 09-06-2024 End: 09-06-2024 Patient encounter procedure 09/06/2024 1:20 PM EDT Office Visit Podiatry [address] [place] [address] Barbie Nova [address] [address] 3 month follow up nail care Podiatry Comment on above: 3 month follow up nail care Start: 06-19-2024 Advance Directive Discussion Advance Directive Discussion [facility] Start: 06-19-2024 Medicare Advantage Annual Wellness Visit Medicare Advantage Annual Wellness Visit [facility] Start: 02-23-2024 End: 02-23-2024 Patient encounter procedure 02/23/2024 2:00 PM EDT Office Visit Podiatry [address] [place] [address] Barbie Nova [address] [place] [address] 3 month follow up nail care Podiatry Comment on above: 3 month follow up nail care Start: 02-18-2024 Covid-19 Vaccine ( season) Covid-19 Vaccine () [facility] Start: 02-18-2024 Covid-19 Vaccine () Covid-19 Vaccine () [facility] Start: 02-18-2024 Influenza vaccination [facility] Start: 07-16-2023 [facility] Start: 07-16-2023 [facility] Start: 06-19-2023 Advance Directive Discussion Advance Directive Discussion [facility] Start: 06-19-2023 Behavioral Health Screening Behavioral Health Screening [facility] Start: 06-19-2023 Depression Assessment Depression Assessment [facility] Start: 02-17-2023 Covid-19 Vaccine () Covid-19 Vaccine () [facility] Start: 02-17-2023 Influenza vaccination Influenza Vaccine (#1) [facility] Start: 10-10-2022 Patient referral [facility] Work Phone: Start: 02-01-2022 Simple repair f/e/e/n/l/m 2.6cm-5.0 cm RPR F/E/E/N/L/M 2.6-5.0 CM [facility] Work Phone: Start: 09-17-2021 Diabetic foot examination Diabetic Foot Exam [facility] Start: 09-14-2021 Hepatitis B surface antibody level LDL Cholesterol [facility] Start: 04-07-2021 Glaucoma screening Dilated Retinal Exam [facility] Start: 03-30-2021 Hemoglobin A1c measurement HbA1C [facility] Start: 01-19-2021 Hepatitis B screening Urine Albumin:Creatinine Ratio [facility] Start: 09-06-2017 End: 09-06-2017 Appointment Appointment [facility] Work Phone: Start: 05-22-2017 End: 05-22-2017 Appointment Appointment [facility] Work Phone: Start: 05-09-2017 End: 05-09-2017 Hepatobiliary imaging NM HIDA Scan with EF [facility] Work Phone: Start: 05-09-2017 End: 05-09-2017 Us abdominal real time w/image documentation US Abdomen, RUQ [facility] Work Phone: Start: 05-09-2017 End: 05-09-2017 Appointment Appointment [facility] Work Phone: Start: 03-09-2017 End: 03-09-2017 Follow Up Appt 6 months Follow Up Appt 6 months [facility] Work Phone: Start: 03-09-2017 End: 03-09-2017 MMM MMM [facility] Work Phone: Start: 01-20-2017 End: 01-20-2017 *BMP *BMP [facility] Work Phone: Start: 01-20-2017 End: 01-20-2017 *CBC with Differential *CBC with Differential [facility] Work Phone: Start: 01-20-2017 End: 01-20-2017 BNP *Brain Natriuretic Peptide BNP [facility] Work Phone: Start: 01-20-2017 End: 01-20-2017 Chest x-ray X-Ray, Chest, PA & Lateral [facility] Work Phone: Start: 01-20-2017 End: 01-20-2017 Follow Up Appt Other Follow Up Appt Other [facility] Work Phone: Start: 11-28-2016 End: 11-28-2016 DMB DMB [facility] Work Phone: Start: 11-28-2016 End: 11-28-2016 Follow Up Appt 1 year Follow Up Appt 1 year [facility] Work Phone: Start: 09-06-2016 End: 09-06-2016 ENTRY ENGINEER ENTRY ENGINEER [facility] Work Phone: Start: 09-06-2016 End: 09-06-2016 Follow Up Appt 6 months Follow Up Appt 6 months [facility] Work Phone: Start: 09-06-2016 End: 09-06-2016 Follow Up Appt Other Follow Up Appt Other [facility] Work Phone: Start: 08-22-2016 End: 08-23-2016 BNP *Brain Natriuretic Peptide BNP [facility] Work Phone: Start: 08-22-2016 End: 09-07-2016 DMB DMB [facility] Work Phone: Start: 08-22-2016 End: 09-07-2016 Echo tthrc r-t 2d w/wom-mode compl spec&colr d Echo Complete with Color Flow [facility] Work Phone: Start: 08-22-2016 End: 09-07-2016 Follow Up Appt 3 months Follow Up Appt 3 months [facility] Work Phone: Start: 06-08-2016 End: 08-18-2016 *MISC - Miscellaneous Lab Test #1 *MISC - Miscellaneous Lab Test #1 [facility] Work Phone: Start: 05-31-2016 End: 05-31-2016 DMB DMB [facility] Work Phone: Start: 05-31-2016 End: 05-31-2016 Follow Up Appt 4 months Follow Up Appt 4 months [facility] Work Phone: Start: 05-20-2016 End: 05-20-2016 Follow Up Appt 6 months Follow Up Appt 6 months [facility] Work Phone: Start: 05-20-2016 End: 05-20-2016 MMM MMM [facility] Work Phone: Start: 04-20-2016 End: 10-20-2015 *Hepatic Function Panel *Hepatic Function Panel [facility] Work Phone: Start: 04-20-2016 End: 10-20-2015 Lipid panel [AGGREGATE] *Lipid Profile CC PCP [facility] Work Phone: Start: 03-21-2016 End: 03-21-2016 *CBC with Differential *CBC with Differential [facility] Work Phone: Start: 03-21-2016 End: 04-29-2016 Assay of ferritin Ferritin [facility] Work Phone: Start: 03-21-2016 End: 03-21-2016 DMB DMB [facility] Work Phone: Start: 03-21-2016 End: 03-21-2016 Follow Up Appt 6 weeks Follow Up Appt 6 weeks [facility] Work Phone: Start: 03-21-2016 End: 03-21-2016 Iron and Iron binding capacity panel - Serum or Plasma *IBC Iron & Total Iron Binding Capacity [facility] Work Phone: Start: 03-21-2016 End: 03-21-2016 Reticulocytes/100 erythrocytes *Reticulocyte Count [facility] Work Phone: Start: 03-14-2016 End: 03-14-2016 Left Heart Cath Left Heart Cath [facility] Work Phone: Start: 03-09-2016 End: 03-09-2016 CBC W Auto Differential panel - Blood *CBC without Diff [facility] Work Phone: Start: 03-08-2016 End: 03-09-2016 *BMP *BMP [facility] Work Phone: Start: 03-08-2016 End: 03-09-2016 BNP *Brain Natriuretic Peptide BNP [facility] Work Phone: Start: 03-08-2016 End: 03-09-2016 Ct angiography chest w/contrast/noncontrast CTA Chest, with contrast material(s) [facility] Work Phone: Start: 03-08-2016 End: 03-08-2016 Ecg routine ecg w/least 12 lds w/i&r EKG (In office) [facility] Work Phone: Start: 03-08-2016 End: 03-08-2016 Follow Up Appt 6 weeks Follow Up Appt 6 weeks [facility] Work Phone: Start: 03-08-2016 End: 03-08-2016 MMM MMM [facility] Work Phone: Start: 02-08-2016 End: 04-29-2016 DMB DMB [facility] Work Phone: Start: 02-08-2016 End: 04-29-2016 Follow Up Appt 6 weeks Follow Up Appt 6 weeks [facility] Work Phone: Start: 02-08-2016 End: 03-18-2016 Pulmonary Function Test - complete Pulmonary Function Test - complete [facility] Work Phone: Start: 10-15-2015 End: 10-19-2015 *Hepatic Function Panel *Hepatic Function Panel [facility] Work Phone: Start: 10-15-2015 End: 10-15-2015 Follow Up Appt 6 months Follow Up Appt 6 months [facility] Work Phone: Start: 10-15-2015 End: 10-19-2015 Lipid panel [AGGREGATE] *Lipid Profile CC PCP [facility] Work Phone: Start: 10-15-2015 End: 10-15-2015 MMM MMM [facility] Work Phone: Start: 08-27-2015 End: 08-27-2015 Follow Up Appt 6 weeks Follow Up Appt 6 weeks [facility] Work Phone: Start: 08-27-2015 End: 08-27-2015 MMM MMM [facility] Work Phone: Start: 08-06-2015 End: 08-06-2015 *BMP *BMP [facility] Work Phone: Start: 08-06-2015 End: 08-06-2015 BNP *Brain Natriuretic Peptide BNP [facility] Work Phone: Start: 08-06-2015 End: 08-06-2015 CBC W Auto Differential panel - Blood *CBC without Diff [facility] Work Phone: Start: 08-06-2015 End: 08-06-2015 Follow up Appt 3 weeks Follow up Appt 3 weeks [facility] Work Phone: Start: 08-06-2015 End: 08-06-2015 MMM MMM [facility] Work Phone: Start: 07-16-2015 End: 08-27-2015 Cardiac Rehab Cardiac Rehab [facility] Work Phone: Start: 07-16-2015 End: 07-16-2015 Ecg routine ecg w/least 12 lds w/i&r EKG (In office) [facility] Work Phone: Start: 07-16-2015 End: 07-16-2015 Follow Up Appt 6 weeks Follow Up Appt 6 weeks [facility] Work Phone: Start: 07-16-2015 End: 07-16-2015 MMM MMM [facility] Work Phone: Start: 06-16-2015 End: 06-17-2015 BNP *Brain Natriuretic Peptide BNP [facility] Work Phone: Start: 06-16-2015 End: 06-16-2015 Ecg routine ecg w/least 12 lds w/i&r EKG (In office) [facility] Work Phone: Start: 06-16-2015 End: 06-16-2015 Echocardiography Echocardiogram (complete) [facility] Work Phone: Start: 06-16-2015 End: 07-16-2015 Follow Up Appt 6 months Follow Up Appt 6 months [facility] Work Phone: Start: 06-16-2015 End: 07-16-2015 MMM MMM [facility] Work Phone: Start: 12-04-2014 End: 12-04-2014 ENTRY ENGINEER ENTRY ENGINEER [facility] Work Phone: Start: 12-04-2014 End: 12-04-2014 Ecg routine ecg w/least 12 lds w/i&r EKG (In office) [facility] Work Phone: Start: 12-04-2014 End: 12-04-2014 Follow Up Appt 6 months Follow Up Appt 6 months [facility] Work Phone: Start: 12-04-2014 End: 12-04-2014 Nuclear stress test -Lexiscan Nuclear stress test -Lexiscan [facility] Work Phone: Start: 05-29-2014 End: 05-29-2014 24 hour holter monitor 24 hour holter monitor [facility] Work Phone: Start: 05-29-2014 End: 05-29-2014 Follow Up Appt 6 months Follow Up Appt 6 months [facility] Work Phone: Start: 05-29-2014 End: 05-29-2014 MMM MMM [facility] Work Phone: Start: 12-31-2013 End: 12-31-2013 ENTRY ENGINEER ENTRY ENGINEER [facility] Work Phone: Start: 12-31-2013 End: 12-31-2013 Follow Up Appt 6 months Follow Up Appt 6 months [facility] Work Phone: Start: 06-25-2013 End: 06-25-2013 Ecg routine ecg w/least 12 lds w/i&r EKG (In office) [facility] Work Phone: Start: 06-25-2013 End: 06-25-2013 Follow Up Appt 6 months Follow Up Appt 6 months [facility] Work Phone: Start: 06-25-2013 End: 06-25-2013 MMM MMM [facility] Work Phone: Start: 05-19-2013 End: 06-21-2013 *Hepatic Function Panel *Hepatic Function Panel [facility] Work Phone: Start: 05-19-2013 End: 06-21-2013 Lipid panel [AGGREGATE] *Lipid Profile CC PCP [facility] Work Phone: Start: 11-17-2012 End: 12-05-2012 *Hepatic Function Panel *Hepatic Function Panel [facility] [employer] Work Phone: Start: 11-17-2012 End: 12-05-2012 Lipid panel [AGGREGATE] *Lipid Profile [facility] Work Phone: Start: 2012 RSV Vaccine (1 - 1-dose 75+ series) RSV Vaccine (1 - 1-dose 75+ series) [facility] Start: 06-21-2012 End: 06-21-2012 Follow Up Appt 1 year Follow Up Appt 1 year [facility] [employer] Work Phone: Start: 06-23-2011 End: 06-23-2011 Follow Up Appt 1 year Follow Up Appt 1 year [facility] [employer] Work Phone: Start: 06-21-2011 Shingrix Vaccine (2 of 3) Shingrix Vaccine (2 of 3) [facility] Start: 1997 RSV Vaccine (1 - 1-dose 60+ series) RSV Vaccine (1 - 1-dose 60+ series) [facility] Start: 08-20-1955 Depression Screening Depression Screening [facility] Anion gap in Serum or Plasma [facility] BUN/Creatinine ratio [facility] Calcium [Mass/volume ] in Serum or Plasma [facility] Carbon dioxide, tota l [Moles/volume] in Central venous blood [facility] Catheterization of left heart [facility] Work Phone: Creatinine [Mass/vol ume] in Serum or Plasma [facility] Electrocardiographic procedure [facility] Erythrocyte mean cor puscular volume determination [facility] Glucose [Mass/volume ] in Serum or Plasma [facility] Hematocrit [Volume F raction] of Blood [facility] Hemoglobin [Mass/vol ume] in Blood [facility] Leukocytes [#/volume ] in Blood [facility] Mean corpuscular hem oglobin concentration determination [facility] Mean corpuscular hem oglobin determination [facility] Measurement of renal function [facility] Neutrophil count [facility] Neutrophil percent differential count [facility] Patient Education [facility] Work Phone: Patient referral [facility] Work Phone: Platelets [#/volume] in Blood [facility] Potassium measurement [facility] Red blood cell count [facility] Red cell distributio n width determination [facility] Serum chloride measurement [facility] Sodium measurement [facility] Urea nitrogen [Mass/ volume] in Serum or Plasma [facility] Urine culture [facility] Urine culture [facility] US Heart [facility] XR Chest PA and Lateral [facility] Immunizations Immunization Date Immunization Notes Care Provider Fa cility 12-31-2024 tetanus toxoid, redu anuradha diphtheria toxoid, and acellular pertussis vaccine, adsorbed Dr. Keron Maciel MD Work Phone: [facility] 11-12-2023 tetanus toxoid, redu anuradha diphtheria toxoid, and acellular pertussis vaccine, adsorbed Dr. Keron Maciel MD Work Phone: [facility] 02-01-2022 tetanus toxoid, redu anuradha diphtheria toxoid, and acellular pertussis vaccine, adsorbed Dr. Keron Maciel Work Phone: [facility] 08-07-2020 Covid (Moderna) Dr. Keron hdez Work Phone: [facility] 07-10-2020 Covid (Moderna) Dr. Keron hdez Work Phone: [facility] 03-07-2020 influenza virus vacc ine, unspecified formulation Barbie Nova Work Phone: [facility] 02-07-2020 tetanus toxoid, redu anuradha diphtheria toxoid, and acellular pertussis vaccine, adsorbed Dr. Keron Maciel Work Phone: [facility] 03-07-2019 influenza, high dose seasonal, preservative-free Barbie Nova Work Phone: [facility] 03-03-[address] Keron Maciel Work Phone: [facility] 03-08-2018 influenza, injectabl e, quadrivalent, contains preservative Barbie Nova Work Phone: [facility] 03-08-2018 influenza, injectabl e, quadrivalent, preservative free Dr. Keron Maciel MD Work Phone: [facility] 04-07-2015 influenza, injectabl e, quadrivalent, preservative free Dr. Keron Maciel Work Phone: [facility] 04-07-2015 influenza, seasonal, injectable Dr. Keron Maciel Work Phone: [facility] 03-19-2015 influenza, high dose seasonal, preservative-free [employer] Work Phone: [facility] 03-19-2015 influenza, injectabl e, quadrivalent, preservative free Dr. Keron Maciel MD Work Phone: [facility] 12-23-2014 pneumococcal conjuga te vaccine, 13 valent [employer] Work Phone: [facility] 06-19-2014 influenza, injectabl e, quadrivalent, preservative free Dr. Keron Maciel MD Work Phone: [facility] 04-03-2013 influenza virus vacc ine, unspecified formulation [employer] Work Phone: [facility] 04-26-2011 zoster vaccine, live [employer] Work Phone: [facility] Work Phone: 04-05-2010 influenza virus vacc ine, unspecified formulation [employer] Work Phone: [facility] 03-19-2009 influenza virus vacc ine, unspecified formulation [employer] Work Phone: [facility] 11-17-2005 tetanus and diphther ia toxoids, adsorbed, preservative free, for adult use (2 Lf of tetanus toxoid and 2 Lf of diphtheria toxoid) [employer] Work Phone: [facility] 04-28-2005 influenza virus vacc ine, unspecified formulation [employer] Work Phone: [facility] Work Phone: 03-19-2004 influenza virus vacc ine, whole virus Barbie Testrake Work Phone: [facility] 04-29-2003 pneumococcal polysaccharide vaccine, 23 valent Barbiepercy Nova Work Phone: [facility] 04-29-[address] Elisabeth Maciel Work Phone: [facility] Work Phone: 04-29-2003 pneumococcal vaccine , unspecified formulation Dr. Keron Maciel Work Phone: [facility] 03-19-2003 influenza virus vacc ine, whole virus Barbie Nova Work Phone: [facility] Payers Date Payer Category Payer Self-pay [id number] 2017 Medicare AETNA MEDICARE A ETNA MEDICARE PPO [id number] 2017-Present [phone] [address] [place] [address] [facility] [id number] 2017 Medicare (Managed Care) [facility] [id number] 2017 Private Health Insurance [id number] 2006 Unknown [id number] Medicare [id number] Medicare [id number] Unknown [id number] 2.16.840.1.978184.3.579.2. 462 Unknown [id number] 2.16.840.1.654983.3.579.2. 462 Unknown [id number] 2.16.840.1.960397.3.579.2. 462 Unknown [id number] 2.16.840.1.600962.3.579.2. 462 Unknown [id number] 2.16.840.1.837417.3.579.2. 462 Unknown [id number] 2.16.840.1.451199.3.579.2. 462 Unknown [id number] 2.16.840.1.687387.3.579.2. 462 Unknown [id number] 2.16.840.1.890012.3.579.2. 462 Unknown [id number] 2.16.840.1.700115.3.579.2. 462 Unknown [id number] 2.16.840.1.620894.3.579.2. 462 Unknown [id number] 2.16.840.1.394204.3.579.2. 462 Unknown [id number] 2.16.840.1.746006.3.579.2. 462 Unknown [id number] 2.16.840.1.142361.3.579.2. 462 Unknown [id number] 2.16.840.1.506412.3.579.2. 462 Unknown [id number] 2.16.840.1.212078.3.579.2. 462 Unknown [id number] 2.16.840.1.972956.3.579.2. 462 Unknown [id number] 2.16.840.1.094757.3.579.2. 462 Unknown [id number] 2.16.840.1.114113.3.579.2. 462 Unknown [id number] 2.16.840.1.438712.3.579.2. 462 Unknown [id number] 2.16.840.1.203139.3.579.2. 462 Unknown [id number] 2.16.840.1.767896.3.579.2. 462 Unknown [id number] 2.16.840.1.579192.3.579.2. 462 Unknown [id number] 2.16.840.1.811109.3.579.2. 462 Unknown [id number] 2.16.840.1.044133.3.579.2. 462 Unknown [id number] 2.16.840.1.415875.3.579.2. 462 Unknown [id number] 2.16.840.1.534628.3.579.2. 462 Unknown [id number] 2.16.840.1.174551.3.579.2. 462 Unknown [id number] 2.16.840.1.147685.3.579.2. 462 Unknown [id number] 2.16.840.1.479490.3.579.2. 462 Unknown [id number] 2.16840.1.622664.3.579.2. 462 Social History Date Type Detail Facility Start: 10-13-2021 End: 09-14-2023 Tobacco smoking status CTIS Unknown if ever smoked [facility] Start: 02-12-2020 None [facility] Start: 02-12-2020 Spouse/ Signif icant Other [facility] Start: 02-12-2020 Non-smoker [facility] Start: 1935 Sex Assigned At Male [facility] Start: 11-01-2010 End: 01-07-2025 Tobacco smoking status CTIS Ex-smoker [facility] Work Phone: Start: 10-18-1959 End: 10-17-1964 History of tobacco use Current smoker [facility] Work Phone: Start: 10-18-1959 End: 10-17-1964 History of tobacco use Cigarette Smoker [facility] Work Phone: Start: 11-01-2010 End: 07-31-2023 Cigarettes smoked current (pack per day) - Reported 1 [facility] Start: 11-01-2010 Tobacco use and exposure Smokeless tobacco non-user [facility] Work Phone: Start: 07-31-2023 End: 12-13-2024 Alcohol intake Current non-drinker of alcohol (finding) [facility] Start: 09-24-2018 End: 07-31-2023 Tobacco use panel [facility] Adult Depression Screening Assessment 0 [facility] Start: 1935 Sex Assigned At Not on file [facility] Start: 06-16-2024 Tobacco Use Tobacco Use [facility] Medical Equipment Procedure Code Equipment Code [...] 05/03/2017 3:51 PM Soham Mcgraw III, [facility] 05-03-2017 Are you blind, or do you have serious difficulty seeing, even when wearing glasses No 05/03/2017 3:51 PM Soham Mcgraw III, [facility] 05-03-2017 Do you have serious difficulty walking or climbing stairs No 05/03/2017 3:51 PM Soham Mcgraw III, [facility] 05-03-2017 Do you have difficul ty dressing or bathing No 05/03/2017 3:51 PM Soham Mcgraw III, [facility] 05-03-2017 Because of a physica l, mental, or emotional condition, do you have difficulty doing errands alone such as visiting a physician's office or shopping No 05/03/2017 3:51 PM Soham Mcgraw III, [facility] Mental Status Date Assessment Result Facility 01-07-2025 Cognitive function Awake;Alert;A ppropriate; Follows Commands [facility] Work Phone: 05-03-2017 Because of a physica l, mental, or emotional condition, do you have serious difficulty concentrating, remembering, or making decisions No 05/03/2017 3:51 PM Soham Mcgraw III, [facility] Clinical Notes 07-01-2015 to 01-07-2025 Note Date & Type Note Facility 01-07-2025 Radiology Diagnostic study note [facility] 01-07-2025 Radiology Diagnostic study note [facility] 01-07-2025 Radiology Diagnostic study note [facility] 12-31-2024 Radiology Diagnostic study note [facility] 12-21-2024 Discharge summary [facility] 12-21-2024 Radiology Diagnostic study note [facility] Imaging Services [address] [place], [place] [id number] Chest without Contrast MR#: [id number] Acct: [id number] Name: OLMAN SYED Rep #: [id number] : 1935 M 89 From: Juana Jimenez MD PCP: Dr. Keron Maciel MD Status: REG ER Study:Chest without Contrast Date of Exam: 12/21/24 Exam# [id number] Ordering Dr: Rhonda Sorenson DO PROCEDURE: CHEST [...] Contrast IMPRESSION: No acute abnormality Reading Location: [facility] CC: Dr. Keron Maciel MD; Dr. Derick Sorenson DO ~ Truck Despatcher: Signed [facility] 12-21-2024 Radiology Diagnostic study note [facility] Imaging Services [address] [place] [address] Chest PA and Lateral MR#: [id number] Acct: [id number] Name: OLMAN SYED Rep #: [id number] : 1935 M 89 From: Babita Myers MD PCP: Dr. Keron Maciel MD Status: REG ER Study:Chest PA and Lateral Date of Exam: 12/21/24 Exam# [id number] Ordering Dr: Rhonda Sorenson DO PROCEDURE: CHEST [...] radiograph with left mid/lingular infiltrate. Reading Location: [facility] CC: Dr. Keron Maciel MD; Dr. Derick Sorenson DO ~ Truck Despatcher: Signed [facility] 12-21-2024 Discharge summary Note Date/Time December 21, 2024 8:32p m [facility] Medical Records Department [address] [place] [address] Emergency Department Summary 12/21/24 MR#: [id number] Acct: [id number] Name: OLMAN SYED Rep #:[id number] : [...] distance he is very short of breath. [facility] Medical History Pneumonia Parkinson's disease Vasovagal episode [...] flank pain Anemia Atherosclerotic heart disease 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 [...] Placard #1 ea 10/14/20 Unknown Rx vitamins A,C,I-mecs-rgkrst 2,148 1 tab PO BID 12/17/20 Unknown [...] follow commands knew that he was at [facility] Skin: Warm, dry, intact no rashes or [...] % (Auto) 60.1 Lymph % (Auto) 24.4 Trinity % (Auto) 10.8 H Eos % (Auto) [...] radiograph with left mid/lingular infiltrate. Reading Location: [facility] Chest CT 12/21/24 18:54 IMPRESSION: No acute abnormality Reading Location: [facility] Discharge Plan Triage Chief Complaint: [...] not show any acute abnormalities. Print Language: Israeli Disposition Disposition: Home, Self Care What to do if you have Problems For any increased pain, shortness of breath, bleeding, nausea or vomiting, chestpain, or any unexpected problems, contact your Primary Care Provider. Call [facility] ([phone]) or report to the closest Emergency Room. Call 911 if necessary. 12/21/242031 <Electronically signed by Derick Sorenson DO> Cosigner Signature (if applicable): CC: Dr. Keron Maciel MD ~ Signed [facility] Work Phone: [phone] NoteHNO ID: [id number] Author: BARBIE NOVA, ? Service: ? Author [...] Objective: Patient presents to clinic ambulating in [facility] Vasc: DP and PT pulses [...] to RTC in 3-4 months. Barbie Nova [facility]06-27-2025 History of Present illness Narrative* Barbie [...] Objective: Patient presents to clinic ambulating in [facility] Vasc: DP and PT pulses [...] Care Dinorah Dempsey LPN documented [facility]25 NoteHNO ID: [id number] Author: DINORAH DEMPSEY LPN Service: ? Author Type: LICENSED NURSE Type: Progress Notes Filed: 12/14/2024 09:07 Note Text: AMB ROOMING INTAKE FLOWSHEET DATA Patient presents with: Left Foot - Established Patient, Follow Up, Diabetic Foot Care Right Foot - Established Patient, Follow Up, Diabetic Foot Care [facility] Radiology Diagnostic study note [facility] Imaging Services [address] [place] [address] Chest PA and Lateral MR#: [id number] Acct: [id number] Name: OLMAN SYED Rep #: [id number] : 1935 M 89 From: Juwan Suazo MD PCP: Dr. Keron Maciel MD Status: REG CLI Study:Chest PA and Lateral Date of Exam: 12/09/24 Exam# [id number] Ordering Dr: Keron Maciel MD PROCEDURE: CHEST [...] deformities of the right ribs. Reading Location: [place] [address] CC: Dr. 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 November 25, 2024 1 1:01am CKD (chronic kidney disease) stage 3, GFR 30-59 ml/min chronic November 252024 11:01am Essential (primary) hypertension [facility] November 25, 2024 11:01am Diabetes mellitus type 2, insulin dependent inactive November 25, 2024 11:01am Generalized weakness inactive November 25, 2024 11:01am [facility] Work Phone: 1(931) 589-334906-09-2025 Evaluation note* Diagnosis Onset Date Resolution Status Admit Date 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 November [...] 09 1:52pm 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 December 09, 2024 1:52pm CKD (chronic kidney disease) stage 3, GFR 30-59 ml/min chronic November 182024 1:52pm Essential (primary) hypertension chr onic December 09, 2024 1:52pm HLD (hyperlipidemia) chronic December 09, 2024 1:52pm DANYELL (obstructive sleep apnea) chroni c December 09, 2024 1:52pm [facility] Work Phone: 1(917) 670-550406-09-2025 Evaluation note* Diagnosis Onset Date Resolution Status Admit Date 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 November [...] December 09 1:52pm 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 December [...] July 01, 2015 inactive December 23 1:32pm [facility] Work Phone: 1(207) 859-343806-09-2025 Evaluation note* Diagnosis Onset Date Resolution Status Admit Date 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 November [...] December 09 1:52pm 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 December [...] of breath inactive December 23, 2024 1:32pm [facility] Work Phone: [phone]) 452-692406-09-2025 Evaluation note* Diagnosis Onset Date Resolution Status Admit Date 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 November [...] December 09 1:52pm 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 December [...] 172024 11:10am Obesity chronic December 30 11:10am [facility] Work Phone: [phone]) 545-230106-09-2025 Evaluation note* Diagnosis Onset Date Resolution Status Admit Date 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 Imaging Services [address] [place] [address] Chest PA and Lateral MR#: [id number] Acct: [id number] Name: OLMAN SYED Rep #: [id number] : 1935 M 89 From: Ana Maza MD PCP: Dr. Keron Maciel MD Status: REG CLI Study:Chest PA and Lateral Date of Exam: 11/25/24 Exam# [id number] Ordering Dr: Keron Maciel MD PROCEDURE: CHEST [...] border, similar to the prior. [facility] CC: Dr. Keron Maciel MD ~ Truck Despatcher: Signed [facility]06-04-2025 Discharge summary [facility] Medical Records Department [address] [place] [address] Emergency Department Summary 11/19/24 MR#: [id number] Acct: [id number] Name: OLMAN SYED Rep #:[id number] : [...] improvement of symptoms he presents for evaluation. [facility] Medical History Parkinson's disease Vasovagal episode Obesity [...] flank pain Anemia Atherosclerotic heart disease 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 [...] Placard #1 ea 10/14/20 Unknown Rx vitamins A,C,V-snyb-ucaggt 2,148 1 tab PO BID 12/17/20 Unknown [...] % (Auto) 65.1 Lymph % (Auto) 20.0 Trinity % (Auto) 9.5 Eos % (Auto) 2.1 [...] Sl. Cloudy Urine pH 6.0 Ur Specific Bantry 1.015 Urine Protein 30 H Urine Glucose [...] setting of cardiomegaly. Reading Location: [place] [address] Chest x-ray as interpreted by the emergency [...] the ER for repeat evaluation. Print Language: Israeli Disposition Disposition: Home, Self Care What to do if you have Problems For any increased pain, shortness of breath, bleeding, nausea or vomiting, chestpain, or any unexpected problems, contact your Primary Care Provider. Call [facility] ([phone]) or report tothe closest Emergency Room. Call 911 if necessary. 11/20/24 0030 Cosigner Signature (if applicable): CC: Dr. Keron Maicel MD ~ Signed [facility]06-03-2025 Radiology Diagnostic study note [facility] Imaging Services [address] [place] [address] Chest PA and Lateral MR#: [id number] Acct: [id number] Name: OLMAN SYED Rep #: [id number] : 1935 M 89 From: Johan Higgins MD PCP: Dr. Keron Maciel MD Status: REG ER Study:Chest PA and Lateral Date of Exam: 11/19/24 Exam# [id number] Ordering Dr: Sharon Corrales DO PROCEDURE: CHEST PA AND LATERAL 11/19/2024 REASON FOR EXAM: DYSPNEA TECHNIQUE: Frontal and lateral views of the chest. COMPARISON: 07/16/2023. FINDINGS: Prior sternotomy. The heart is enlarged. Pulmonary vascular congestion. No pleural effusion or pneumothorax. Partially visualized lumbar fixation. RAD/Chest PA and Lateral IMPRESSION: Pulmonary vascular congestion in the setting of cardiomegaly. Reading Location: [place] [address] CC: Dr. Keron Maciel MD; Helio Corrales DO ~ Truck Despatcher: Signed [facility]06-03-2025 Discharge summary Author Helio Corrales [facility] Note Date/Time November 20, 2024 12:30 am [facility] Medical Records Department [address] [place] [address] Emergency Department Summary 11/19/24 MR#: [id number] Acct: [id number] Name: OLMAN SYED Rep #:[id number] : [...] improvement of symptoms he presents for evaluation. [facility] Medical History Parkinson's disease Vasovagal episode Obesity [...] flank pain Anemia Atherosclerotic heart disease 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 [...] Placard #1 ea 10/14/20 Unknown Rx vitamins A,C,U-edft-wfafgz 2,148 1 tab PO BID 12/17/20 Unknown [...] % (Auto) 65.1 Lymph % (Auto) 20.0 Trinity % (Auto) 9.5 Eos % (Auto) 2.1 [...] Sl. Cloudy Urine pH 6.0 Ur Specific Bantry 1.015 Urine Protein 30 H Urine Glucose [...] setting of cardiomegaly. Reading Location: [place] [address] Chest x-ray as interpreted by the emergency [...] the ER for repeat evaluation. Print Language: Israeli Disposition Disposition: Home, Self Care What to do if you have Problems For any increased pain, shortness of breath, bleeding, nausea or vomiting, chestpain, or any unexpected problems, contact your Primary Care Provider. Call [facility] ([phone]) or report to the closest Emergency Room. Call 911 if necessary. 11/20/24 0030 <Electronically signed by Helio Corrales DO> Cosigner Signature (if applicable): CC: Dr. Keron Maciel MD ~ Signed [facility] Work Phone: 1(590) 334-634603-21-2025 Instructions* Patient Instructions* Barbie Nova - 09/06/2024 [...] (or decreased sensation in your feet) a meat cooler should always cut your toenails. Be Careful [...] Go to your health care provider or meat cooler to treat these conditions. Can use tubigrip for lower extremity swelling. Apply during the day and can remove at night documented [facility]03-[facility]-2025 NoteHNO ID: [id number] Author: BARBIE NOVA, ? Service: ? Author [...] to RTC in 3-4 months. Barbie Nova [facility]03-21-2025 History of Present illness Narrative* Barbie [...] Cintia Izquierdo MA Student documented in this encounterSalem [facility]03-21-2025 NoteHNO ID: [id number] Author: CINTIA IZQUIERDO MA Student Service: ? Author Type: Student Type: Progress Notes Filed: 09/06/2024 14:17 Note Text: AMB ROOMING INTAKE FLOWSHEET DATA Patient presents with: Left Foot - Established Patient, Follow Up, Diabetic Foot Care Right Foot - Established Patient, Follow Up, Diabetic Foot Care Cintia Izquierdo [facility]-2025 Evaluation note* Diagnosis Onset Date Resolution Status Admit Date Left foot drop acute July 202024 1:54pm Parkinson's disease acute Febru 2024 1:54pm Mild cognitive impairment chronic August 01, 2024 1:54pm Orthostatic hypotension resolved [facility] 2024 1:54pm [facility] Work Phone: [phone] Evaluation note* Diagnosis Onset Date Resolution Status Admit Date Left foot drop acute July 202024 1:54pm Parkinson's disease acute Febru 2024 1:54pm Mild cognitive impairment chronic August 01, 2024 1:54pm Orthostatic hypotension resolved [facility] 2024 1:54pm Diabetes mellitus type 2, insulin dependent acute November 25, 2024 11:01am Generalized weakness acute November 25, 2024 11:01am 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 November 11:01am CKD (chronic kidney disease) stage 3, GFR 30-59 ml/min chronic November 252024 11:01am Essential (primary) hypertension chronic November 25, 2024 1 1:01am [facility] Work Phone: 1(513) 733-224302-06-2025 Evaluation note* Diagnosis Onset Date Resolution Status Admit Date Diabetes mellitus type 2 in obese acute July 25 2:30pm Parkinson's disease acute Febru marli2024 2:30pm Polyneuropathy acute July 252024 2:30pm Vasovagal episode acute Februar y 2024 2:30pm Tyikr-js-nyrrnrb kidney injury chron ic July 25, 2024 2:30pm 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 Service: ? Author [...] to RTC in 3-4 months. Barbie Nova [facility]12-19-2024 History of Present illness Narrative* Barbie [...] foot/nail care. [facility] 02/29/24 [facility] Instructions* Patient Instructions* Barbie Nova - [...] (or decreased sensation in your feet) a meat cooler should always cut your toenails. Be Careful [...] Go to your health care provider or meat cooler to treat these conditions. documented in [facility]12-[facility]-2024 NoteHNO ID: [id number] Author: ROSITA GARNER, NANCI Service: ? Author Type: Registered Nurse Type: Progress Notes Filed: 06/06/2024 10:22 Note Text: Patient presents with: Left Foot - Established Patient, Follow Up, Diabetic Foot Care Right Foot - Established Patient, Follow Up, Diabetic Foot Care Patient presents for follow up diabetic foot/nail care. [facility] 02/29/24[facility]09-12-2024 NoteHNO ID: [id number] Author: BARBIE NOVA, ? Service: ? Author [...] to RTC in 3-4 months. Barbie Nova [facility]09-12-2024 History of Present illness Narrative* Barbie Nova [...] Objective: Patient presents to clinic ambulating in [facility] Vasc: DP and PT pulses [...] foot/nail care. Due for diabetic foot exam. [facility] 11/16/23 documented in this [facility]09-12-2024 NoteHNO ID: [id number] Author: ROSITA GARNER RN Service: ? Author Type: Registered Nurse Type: Progress Notes Filed: 02/29/2024 14:01 Note Text: Patient presents with: Left Foot - Established Patient, Follow Up, Diabetic Foot Check Right Foot - Established Patient, Follow Up, Diabetic Foot Check Patient presents for follow up diabetic foot/nail care. Due for diabetic foot exam. [facility] 11/16/23[facility]05-30-2024 Instructions* Patient Instructions* Barbie Nova - 11/16/2023 [...] (or decreased sensation in your feet) a meat cooler should always cut your toenails. Be Careful [...] Go to your health care provider or meat cooler to treat these conditions. documented in [facility]05-30-2024 History of Present illness Narrative* Barbie [...] Care Dinorah Dempsey LPN documented in this [facility]Sal[facility]02-12-2024 Miscellaneous Notes* Addendum Note - Barbie Nova - 07/31/2023 1:32 PM ESTAddended by: BARBIE NOVA DPM on: 07/31/2023 01:32 PM Modules accepted: Orders documented in this encounterSal[facility]02-12-2024 Instructions* Patient Instructions* Barbie Nova - [...] (or decreased sensation in your feet) a meat cooler should always cut your toenails. Be Careful [...] Go to your health care provider or meat cooler to treat these conditions. 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 07/07/2014 Calculus of kidney Class 3 severe obesity due to excess calories with body mass index (BMI) of 40.0 to 44.9 in adult ([facility]) Controlled type 2 diabetes mellitus with stage 3 chronic kidney disease, without long-term current use of insulin ([facility]) 03/26/2018 Diaphragmatic hernia without mention [...] Care Dinorah Dempsey LPN [place] [address]2023 Discharge summary Author Mark Aggarwal [facility] December 09, 2022 2:12pm Note Date/Time December 09, 2022 2:12 pm [facility] [address] [place] [address] / REHABILITATION SERVICES DISCHARGE SUMMARY MR#: [id number] Acct: [id number] Name: OLMAN SYED Rep #: [id number] : 1935 87 From: Mark Aggarwal PT, ATC Referring Dr.: Dr. Rich Padgett MD Status: REG RCR Insurance: [facility] It has been [...] please feel free to call me at [phone]. Thank you for the referral of thispatient. Sincerely, Mark Aggarwal PT, ATC <Electronically signed by Mark Aggarwal PT, ATC> 12/09/22 7026 CC: Dr. Keron Maciel MD; Dr. Rich Padgett MD ~ [facility] Signed [facility] Work Phone: 1(610) 494-397806-23-2023 Discharge summary Author Kalia Hendrickson [facility] December 09, 2022 1:32pm Note Date/Time December 09, 2022 1:32 pm [facility] [address] [place] [address] / REHABILITATION SERVICES DISCHARGE SUMMARY MR#: [id number] Acct: [id number] Name: OLMAN SYED Rep #: [id number] : 1935 87 From: Kalia Hendrickson DP T Referring Dr.: Dr. Rich Padgett MD Status: REG RCR [facility]: [facility] It has been [...] please feel free to call me at [phone]. Thank you for the referral of thispatient. [...] Kalia Hendrickson DPT> 12/09/22 1332 CC: Dr. Kreon Maciel MD; Dr. 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 [facility] Work Phone: 1(467) 935-161201-13-2016 Evaluation note* Diagnosis Onset Date Resolution Status 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 Essential (primary) hypertension chronic History of coronary artery stent placement June chronic HLD (hyperlipidemia) chronic Cardiomyopathy acute Leg swelling acute Obesity acute Polyneuropathy acute 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 disease 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 CKD (chronic kidney disease) stage 3, GFR 30-59 ml/min chronic Diabetes mellitus chronic Essential (primary) hypertension chronic History of coronary artery stent placement June chronic HLD (hyperlipidemia) chronic DANYELL (obstructive sleep apnea) chronic Parkinson's disease chronic Cardiac arrhythmia acute Abnormality of gait and mobility chronic 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 disease 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 Keron Maciel MD Status:REG ER Location: ED ADDENDUM by Dr. Derick Sorenson DO on 01/07/25 at 0315 Patient is EKG reviewed showed sinus rhythm at a rate of 73 bpm with evidence ofright bundle branch block. SD interval 190 01/07/25 0315<Electronically signed by Derick [...] twice at night within a few hours. [facility] Medical History Frequent falls Shortness of breath [...] flank pain Anemia Atherosclerotic heart disease 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 [...] Placard #1 ea 10/14/20 Unknown Rx vitamins A,C,O-akvl-uflgti 2,148 1 tab PO BID 12/17/20 Unknown [...] follow commands and that he was at [facility] the year is 2024 Skin: Patient has [...] 79.1 H Lymph % (Auto) 10.0 L Trinity % (Auto) 8.0 Eos % (Auto) 1.4 [...] Clarity Clear Urine pH 6.0 Ur Specific [place] 1.015 Urine Protein 30 H Urine Glucose [...] IMPRESSION: No acute intracranial findings Reading Location: [facility] 01/07/25 01:10 IMPRESSION: No acute cervical spine injury. Reading Location: [facility] Chest X-Ray 01/07/25 01:49 IMPRESSION: No acute chest findings. Reading Location: [place] [address] Discharge Plan Triage Chief Complaint: Weakness Other [...] MD [Primary Care Provider] - Print Language: Israeli Disposition Disposition: Acute Care Hospital [facility] What to do if you have Problems For any increased pain, shortness of breath, bleeding, nausea or vomiting, chestpain, or any unexpected problems, contact your Primary Care Provider. Call [facility] ([phone]) or report to the closest Emergency Room. Call 911 if necessary. 01/07/253 <Electronically signed by Derick Sorenson DO> Cosigner Signature (if applicable): CC: Dr. Keron Maciel MD ~ Signed [facility] Work Phone: Evaluation note* Diagnosis Onset Date Resolution Status B12 nutritional deficiency a cute 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 disease acut e Mild cognitive impairment [place] Parkinson's disease acute Polyneuropathy acute DANYELL (obstructive sleep apnea) chronic Obesity acute Polyneuropathy acute Diabetes mellitus chronic Essential (primary) hypertension chronic HLD (hyperlipidemia) chronic 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 disease acut e Mild cognitive impairment [place] Parkinson's disease acute Polyneuropathy acute B12 nutritional deficiency a cute 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 disease acut e Fungal skin infection acute Obesity acute 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 Body mass index (BMI) 40.0-44.9, adult chronic CKD (chronic kidney disease) stage 3, GFR 30-59 ml/min chronic Diabetes mellitus chronic Essential (primary) hypertension chronic HLD (hyperlipidemia) [facility] Work Phone: Evaluation note* Diagnosis Onset Date Resolution Status B12 nutritional deficiency a cute 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 disease acut e Mild cognitive impairment [place] Parkinson's disease acute Polyneuropathy acute DANYELL (obstructive sleep apnea) chronic Obesity acute Polyneuropathy acute Diabetes mellitus chronic Essential (primary) hypertension chronic HLD (hyperlipidemia) chronic 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 disease acut e Mild cognitive impairment [place] Parkinson's disease acute Polyneuropathy acute B12 nutritional deficiency a cute 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 disease acut e Fungal skin infection acute Obesity acute 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 Body mass index (BMI) 40.0-44.9, adult chronic CKD (chronic kidney disease) stage 3, GFR 30-59 ml/min chronic Diabetes mellitus chronic Essential (primary) hypertension chronic HLD (hyperlipidemia) chronic 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 Essential (primary) hypertension chronic History of coronary artery stent placement June [facility] Work Phone: Evaluation note* Diagnosis Onset Date Resolution Status 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 disease acut e Mild cognitive impairment [place] Parkinson's disease acute Polyneuropathy acute B12 nutritional deficiency a cute 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 disease acut e Fungal skin infection acute Obesity acute 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 Body mass index (BMI) 40.0-44.9, adult chronic CKD (chronic kidney disease) stage 3, GFR 30-59 ml/min chronic Diabetes mellitus chronic Essential (primary) hypertension chronic HLD (hyperlipidemia) chronic 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 Essential (primary) hypertension chronic History of coronary artery stent placement June [facility] Work Phone: Evaluation note* Diagnosis Onset Date [...] block chronic 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 Essential (primary) hypertension chronic History of coronary artery stent placement June chronic HLD (hyperlipidemia) [facility] Work Phone: Evaluation note* Diagnosis Onset Date Resolution Status Obesity acute DANYELL (obstructive sleep apnea) chronic 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 Essential (primary) hypertension chronic History of coronary artery stent placement June chronic HLD (hyperlipidemia) [facility] Work Phone: Evaluation note* Diagnosis Onset Date Resolution Status Obesity acute DANYELL (obstructive sleep apnea) chronic 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 Essential (primary) hypertension chronic History of coronary artery stent placement June chronic HLD (hyperlipidemia) chronic Cardiomyopathy acute Leg swelling acute Obesity acute Polyneuropathy acute 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 disease 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 CKD (chronic kidney disease) stage 3, GFR 30-59 ml/min chronic Diabetes mellitus chronic Essential (primary) hypertension chronic History of coronary artery stent placement June chronic HLD (hyperlipidemia) chronic DANYELL (obstructive sleep apnea) chronic Parkinson's disease [facility] Work Phone: Evaluation note* Diagnosis Onychomycosis- Primary Dermatophytosis of nail Pain in toe of left foot Pain in limb Pain in toe of right foot Pain in limb Xerosis cutis Other specified disease of sebaceous glands Diabetic polyneuropathy associated with diabetes mellitus due to underlying condition ([facility]) Callus of heel Corns and callosities documented [facility] encounter [facility] Diagnosis Pain Generalized pain documented in this encounter [facility]* Diagnosis Onset Date Resolution Status Diabetes mellitus type 2 in obese acute 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 Body mass index (BMI) 40.0-44.9, adult chronic CKD (chronic kidney disease) stage 3, GFR 30-59 ml/min chronic Essential (primary) hypertension chronic HLD (hyperlipidemia) chronic DANYELL (obstructive sleep apnea) chronic 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 disease 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 Mild cognitive impairment ch ronic Parkinson's disease chronic Acute bronchitis acute B12 nutritional deficiency a cute Diabetes mellitus type 2 in obese acute Obesity acute 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 CKD (chronic kidney disease) stage 3, GFR 30-59 ml/min chronic Essential (primary) hypertension chronic HLD (hyperlipidemia) [facility] Work Phone: Evaluation note* Diagnosis Onychomycosis- Primary [...] diabetes mellitus (HCC) [facility] encounter [facility] Diagnosis Onychomycosis- Primary Dermatophytosis of nail Pain in toe of left foot Pain in limb Pain in toe of right foot Pain in limb Diabetic polyneuropathy associated with type 2 diabetes mellitus (HCC) documented [facility] this encounter [facility]* Diagnosis Onychomycosis- Primary Dermatophytosis of nail Pain in toe of left foot Pain in limb Pain in toe of right foot Pain in limb Diabetic polyneuropathy associated with type 2 diabetes mellitus (HCC) Venous insufficiency Unspecified venous (peripheral) insufficiency documented [facility] this encounter [facility]* Diagnosis Onychomycosis- Primary Dermatophytosis of nail Pain in toe of left foot Pain in limb Diabetic polyneuropathy associated with type 2 diabetes mellitus (HCC) Pain in toe of right foot Pain in limb documented in this encounter [facility] CenterHistory and [facility] note Author Junior Valverde [facility] Note Date/Time January 07, 2025 3:22 am [facility] Medical Records Department [address] [place] [address] History & Physical Exam 01/07/25315 MR#: [id number] Acct: [id number] Name: OLMAN SYED Rep #:[id number] : 1935 89 From: Junior Valverde MD PCP: Dr. Keron Maciel MD Status:ADM BRITTANY [place] [facility] [id number] HPI - General General Date of Admission: [...] help with placement and risk of fall [facility] Medical History Frequent falls Shortness of [...] flank pain Anemia Atherosclerotic heart disease 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 [...] Placard #1 ea 10/14/20 Unknown Rx vitamins A,C,O-jmow-mlvwyd 2,148 1 tab PO BID 12/17/20 Unknown [...] Clarity Clear, Urine pH 6.0, Ur Specific [place] 1.015, Urine Protein 30 H, Urine Glucose [...] (Auto) 79.1 H, Lymph % (Auto) 10.0L, Trinity % (Auto) 8.0, Eos % (Auto) 1.4, [...] IMPRESSION: No acute intracranial findings Reading Location: [facility] 01/07/25 01:10 IMPRESSION: No acute cervical spine injury. Reading Location: [facility] Chest X-Ray 01/07/25 01:49 IMPRESSION: No acute chest findings. Reading Location: [facility] Assessment & Plan Assessment/Plan (1) Urinary tract [...] DVT prophylaxis?SCDs Charges/Coding Visit Charges Inpatient E&M: 66751 Init Hosp L2 01/07/25 0322 <Electronically signed by Junior Valverde MD> Cosigner Signature (if applicable): CC: Dr. Keron Maciel MD; Dr. Junior Valverde MD~ Signed [facility] Work Phone: Hospital Discharge instructions Additional [...] please return to the ER for repeat evaluation.[facility] Work Phone: Hospital Discharge instructionsAdditional Instructions Stop taking the antibiotic azithromycin that you are currently on and take the doxycycline that was sent to your pharmacy as prescribed. Return with worsening symptoms or other concerns. Your CT of your chest did not show any focal consolidations. Your blood work did not show any acute abnormalities.[facility] Work Phone: Hospital Discharge instructionsAdditional Instructions Use ice to the bridge of your nose. This will help with swelling. This will also help with any bleeding from the nose.[facility] Work Phone: Reason for referral (narrative)No reason for referral information availableWooCleveland Clinic Work Phone: Reason for visit Narrative* Diagnostic Procedure Only (Routine) - Authorized Specialty Diagnoses / Procedures Referred By Contac t Referred To Contact XR IMAGING Diagnoses Pain Procedures XR FOOT GENERAL 3V AP/LAT/OBL BILATERAL RADEX FOOT COMPLETE MINIMUM [address] [place] [address] [place] [address] Referral ID Status Reason Start Date Expiration Date Visits Requested Visits Authorized [id number] Authorized Auto-Generat ed Referral 07/12/2023 08/10/2024 1 1 [facility] Chief Complaint and Reason for Visit [...] skin infection Obesity Atherosclerotic heart disease 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 Body mass [...] skin infection Obesity Atherosclerotic heart disease 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 Body mass index (BMI) 40.0-44.9, adult CKD (chronic kidney disease) stage 3, GFR 30-59 ml/min Diabetes mellitus Essential (primary) hypertension HLD (hyperlipidemia) Atherosclerotic heart disease 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 Essential (primary) [...] skin infection Obesity Atherosclerotic heart disease 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 Body mass index (BMI) 40.0-44.9, adult CKD (chronic kidney disease) stage 3, GFR 30-59 ml/min Diabetes mellitus Essential (primary) hypertension HLD (hyperlipidemia) Atherosclerotic heart disease 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 Essential (primary) hypertension History of coronary artery stent placement Chief Complaint 3 M FU 6 M FU 9 M FU SOB ASHD HTN FALL WITH HEAD INJURY Reason for Visit 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 dise ase Mild cognitive impairment Parkinson's disease Polyneuropathy B12 nutritional deficiency 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 disease Fungal skin infection Obesity Atherosclerotic heart disease 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 Body mass index (BMI) 40.0-44.9, adult CKD (chronic kidney disease) stage 3, GFR 30-59 ml/min Diabetes mellitus Essential (primary) hypertension HLD (hyperlipidemia) Atherosclerotic heart disease 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 Essential (primary) hypertension History of coronary artery stent placement Chief Complaint 9 M FU SOB ASHD HTN FALL WITH HEAD INJURY STITCHES OUT 3 M FU E-ORDER Amb Documentation Reason for Visit Atherosclerotic hear t disease 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 Essential (primary) [...] anterior fascicular block Atherosclerotic heart disease 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 Essential (primary) hypertension History of coronary artery stent placement HLD (hyperlipidemia) Chief Complaint 1 Y FU 6 M FU Reason for Visit Obesity DANYELL (obstructive sleep apnea) Atherosclerotic heart disease 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 Essential (primary) hypertension History of coronary artery stent placement HLD (hyperlipidemia) Chief Complaint 1 Y FU 6 M FU 8 M FU E-ORDER Reason for Visit Obesity DANYELL (obstructive sleep apnea) Atherosclerotic heart disease 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 Essential (primary) [...] for Visit Atherosclerotic hear t disease 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 Essential (primary) [...] Parkinson's disease Diabetes mellitus Chief Complaint sob [facility] ER FU 6 M FU Cough 6 M FU E ORDERS Reason for Visit Diabetes mellitus ty pe 2 in obese Atherosclerotic heart disease 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 Body mass index (BMI) 40.0-44.9, adult CKD (chronic kidney disease) stage 3, GFR 30-59 ml/min Essential (primary) hypertension HLD (hyperlipidemia) DANYELL (obstructive sleep apnea) 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 disease Mild cognitive impairment Parkinson's disease Acute bronchitis B12 nutritional deficiency Diabetes mellitus type 2 in obese Obesity Atherosclerotic heart disease 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 CKD (chronic kidney disease) stage 3, GFR 30-59 ml/min Essential (primary) hypertension HLD (hyperlipidemia) Chief Complaint Admit Date 4 M FU August 01, 2024 1:54pm sob November 19, 2024 10:47 pm [facility] ER FU November 25, 2024 11:01 [...] 11:0 1am 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 November 25, [...] Vasovagal episode July 25, 2024 2 :30pm Rejam-rd-ohzbfnf kidney injury July 25, 2024 2:30pm 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 July 25, [...] Date sob November 19, 2024 10:47 pm [facility] ER FU November 25, 2024 11:01 am dyspnea on exertion November 25, 2024 12:34 pm 2 WK FU December 09, 2024 1:52 pm Reason for Visit Admit Date 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 November 25, 2024 11:01am CKD (chronic kidney disease) stage 3, GF R 30-59 ml/min November 25, 2024 11:01am Essential (primary) hypertension November 11:01am Diabetes mellitus type 2, insulin depend ent November 25, 2024 11:01am Generalized weakness November 25, 2024 11:0 1am Chief Complaint Admit Date sob November 19, 2024 10:47 pm [facility] ER FU November 25, 2024 11:01 am dyspnea on exertion November 25, 2024 12:34 pm 2 WK FU December 09, 2024 1:52 pm EORDER December 09, 2024 3:24 pm Reason for Visit Admit Date 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 November 25, [...] 1:52 pm 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 December 09, 2024 1:52pm CKD (chronic kidney disease) stage 3, GF R 30-59 ml/min December 09, 2024 1:52pm Essential (primary) hypertension December 092024 1:52pm HLD (hyperlipidemia) December 09, 2024 1:5 2pm DANYELL (obstructive sleep apnea) December 09, 2024 1:52pm Chief Complaint Admit Date sob November 19, 2024 10:47 pm [facility] ER FU November 25, 2024 11:01 am dyspnea on exertion November 25, 2024 12:34 pm 2 WK FU December 09, 2024 1:52 pm EORDER December 09, 2024 3:24 pm sob December 21, 2024 3:35p m Chief Complaint Admit Date sob November 19, 2024 10:47 pm [facility] ER FU November 25, 2024 11:01 am dyspnea on exertion November 25, 2024 12:34 pm 2 WK FU December 09, 2024 1:52 pm EORDER December 09, 2024 3:24 pm sob December 21, 2024 3:35p m Increased Dyspnea like before stent. L .L. 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 L .L. 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 L .L. 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 L .L. December 23, 2024 1:32pm [facility] ER FU December 30, 2024 11:1 0am fall December 31, 2024 2:25 pm DYSPNEA ON EXERTION January 02, 2025 1:46 pm [facility] FU January 06, 2025 1:55 pm Chief Complaint Admit Date sob November 19, 2024 10:47 pm [facility] FU November 25, 2024 11:01 am dyspnea on exertion November 25, 2024 12:34 pm 2 WK FU December 09, 2024 1:52 pm EORDER December 09, 2024 3:24 pm sob December 21, 2024 3:35p m Increased Dyspnea like before stent. L .L. 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 January 06, [...] Will Yes July 13 11:49am Power of Deicer [employer] Yes July 13, 2021 11:49am Advance Directive Response Recorded Date/ Time Advance Directives No October 28 8:35am Living Will No October 28, 2021 8 :35am Power of [employer] No October 28, 2021 8:35am Advance Directive Response Recorded Date/ Time Advance Directives Yes October 29 7:13am Living Will Yes October 29, 2021 7 :13am Power of [employer]icer [employer] Yes October 29, 2021 7:13am Advance Directive Response Recorded Date/ Time Advance Directives on File Yes October 172021 7:13am Name of Medical Power of Deicer [employer] Iris astorga- October 29, 2021 7:13am Name of Medical Power of Deicer Inspector [employer] TERRENCE ASTORGA February 01, 2022 1:26pm Advance Directives Yes October 29 7:13am Living Will Yes February 01 1:26pm Power of Deicer Inspector [employer] Yes February 01 022 1:26pm Advance Directive Response Recorded Date/ Time Name of Medical Power of Deicer Inspector [employer] TERRENCE ASTORGA February 01, 2022 1:26pm Advance Directives Yes October 29 7:13am Living Will Yes February 01 1:26pm Power of Deicer Inspector [employer] Yes February 01 022 1:26pm Advance Directive Response Recorded Date/ Time Advance Directives Yes October 29 7:13am Living Will Yes February 01 1:26pm Power of Deicer Inspector [employer] Yes February 01 022 1:26pm Documents on File Type Date Recorded 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 Yes December 20, 2023 2:43pm Do you have a Healthcare Power of Deicer Inspector [employer]? Yes November 19, 2024 10:51pm Advance Directives Yes December 19 2:43pm Advance Directive Response Recorded Date/ Time Living Will Yes December 20, 2023 2 :43pm Do you have a Healthcare Pow er of Deicer Inspector [employer]? Yes December 20, 2023 2:43pm Do you have a Healthcare Pow er of Deicer Inspector [employer]? Yes November 19, 2024 10:51pm Do you have a Healthcare Pow er of Deicer Inspector [employer]? Yes December 21, 2024 4:06pm Name of Medical Power of Deicer Inspector [employer] Iris Pickard kaity December 21, 2024 4:06pm Advance Directives Yes December 19 2:43pm Advance Directive Response Recorded Date/ Time Living Will Yes December 20, 2023 2 :43pm Do you have a Healthcare Pow er of Deicer Inspector Electric? Yes December 20, 2023 2:43pm Do you have a Healthcare Pow er of Deicer Inspector Electric? Yes December 31, 2024 2:33pm Do you have a Healthcare Pow er of Deicer Inspector Electric? Yes November 19, 2024 10:51pm Do you have a Healthcare Pow er of Deicer Inspector Electric? Yes December 21, 2024 4:06pm Name of Medical Power of Deicer Inspector [employer] Iris Pilarjanetekta kaity December 21, 2024 4:06pm Advance Directives Yes December 19 2:43pm Advance Directive Response Recorded Date/ Time Living Will Yes December 20, 2023 2 :43pm Do you have a Healthcare Pow er of Deicer Inspector Electric? Yes December 20, 2023 2:43pm Do you have a Healthcare Pow er of Deicer Inspector [employer]? Yes December 31, 2024 2:33pm Do you have a Healthcare Pow er of Deicer Inspector [employer]? Yes January 07, 2025 1:05am Do you have a Healthcare Pow er of Deicer Inspector [employer]? Yes November 19, 2024 10:51pm Do you have a Healthcare Pow er of Deicer Inspector [employer]? Yes December 21, 2024 4:06pm Name of Medical Power of Deicer Inspector [employer] Iris Pickard kaity December 21, 2024 4:06pm [...] Provider, Referri ng Provider Active Lela Sherman CHILD CARE EDUCATION COORDINATOR, CHILD CARE EDUCATION COORDINATOR-C Attending Provider Active Team Status: Inactive Member [...] Padgett MD Attending Provider, Referring Provider Active Veneer Sawyer Relationship Specialty Start Date End Date Keron Maciel MD [address] [place] [address] PCP - General Internal Medicine 06/09/21 Veneer Sawyer Relationship Specialty Start Date End Date Keron Maciel MD [address] [place] [address] PCP - General Internal Medicine 06/09/21 Team Status: Inactive Member Role Status Dates Dr. Keron Maciel MD Primary Care Provider, Referri Provider Active Bhanu PICKARD, PA Attending Provider Active Team Status: Inactive Member Role Status Dates Dr. Keron Maciel MD Primary Care Provider Active Dr. Saurabh Porter DO Attending Provider, [place] Active Veneer Sawyer Relationship Specialty Start Date End Date Keron Maciel MD [address] [place] [address] PCP - General Internal Medicine 06/09/21 Veneer Sawyer Relationship Specialty Start Date End Date Keron Maciel MD [address] [place] [address] PCP - General Internal Medicine 06/09/21 Veneer Sawyer Relationship Specialty Start Date End Date Keron Maciel MD [address] [place] [address] PCP - General Internal Medicine 06/09/21 Veneer Sawyer Relationship Specialty Start Date End Date Keron Maciel MD [address] [place] [address] PCP - General Internal Medicine 06/09/21 Team [...] 2024 End: December 23, 2024 Zhen Simons CHILD CARE EDUCATION COORDINATOR, CHILD CARE EDUCATION COORDINATOR-C Attending Provider Active S tart: December 23, [...] or prosecute any alcohol or drug abuse patient.[facility] the event this information is protected by the Federal Confidentiality of Alcohol and Drug Abuse Patient Records regulations: The Federal rules restrict any use of the information to criminally investigate or prosecute any alcohol or drug abuse patient.[facility] the event this information is protected by the Federal Confidentiality of Alcohol and Drug Abuse Patient Records regulations: The Federal rules restrict any use of the information to criminally investigate or prosecute any alcohol or drug abuse patient.[facility] the event this information is protected by the Federal Confidentiality of Alcohol and Drug Abuse Patient Records regulations: The Federal rules restrict any use of the information to criminally investigate or prosecute any alcohol or drug abuse patient.[facility] the event this information is protected by the Federal Confidentiality of Alcohol and Drug Abuse Patient Records regulations: The Federal rules restrict any use of the information to criminally investigate or prosecute any alcohol or drug abuse patient.[facility] the event this information is protected by the Federal Confidentiality of Alcohol and Drug Abuse Patient Records regulations: The Federal rules restrict any use of the information to criminally investigate or prosecute any alcohol or drug abuse patient.[facility] the event this information is protected by the Federal Confidentiality of Alcohol and Drug Abuse Patient Records regulations: The Federal rules restrict any use of the information to criminally investigate or prosecute any alcohol or drug abuse patient.[facility] Reason for Visit (unrecogniz ed section and content) Reason Comments Established Patient Diabetic Foot Care Reason Comments Established Patient Follow Up Diabetic Foot Check Reason Comments Established Patient Follow Up Diabetic Foot Care (unrecognized sect ion and content) No Status Records FoundNo Status Records Found INFORMATION SOURCE (unrecogn ized section and content) DATE CREATED AUTHOR 12/15/2024 [facility] DATE CREATED AUTHOR AUTHOR'S ANABEL ATION 01/04/2025 [facility] FOR RECORDS PERTAINING TO PATIENTS WHO [...] BE BASED ON THE PRIMARY CLINICAL RECORDS. [facility]. provides no warranty or guarantee of the accuracy or completeness of information in this document.
[2025-01-07 06:19] LABS: Hematocrit 37.4 % (40-54); Hemoglobin 12.8 g/dL (13.0-16.5); Immature Granulocytes Count 0.080 X10^3/uL (0.0-0.0); Mean Corp Hgb Conc 34.2 g/dL (32-36); Mean Corpuscular Volume 97.1 fL (80-94); Mean Platelet Vol. 8.8 fl (6.2-12.0); NRBC Flagged by Analyzer 0 % (0-5); Platelet Count 220 K/mm3 (150-450); RBC Distribution Width CV 13.8 % (11.6-14.6); RBC Distribution Width SD 48.9 fl (35.1-43.9); Red Blood Count 3.85 M/mm3 (4.6-6.2); White Blood Count 7.7 K/mm3 (4.4-11.0)
[2025-01-07 06:33] LABS: Anion Gap 12 (5-15); BUN 21 mg/dL (4-19); BUN/Creat Ratio 13.1 RATIO (10-20); Calcium,Total 9.4 mg/dL (7.6-11.0); Carbon Dioxide 25.0 mmol/L (21.0-32.0); Chloride 101 mmol/L (98-108); Estimated Creatinine Clearance 35.45 ml/min (50-250); Glucose 121 mg/dL (70-99); Potassium 4.3 mmol/L (3.3-5.1)
[2025-01-07] MEDS: Aspirin E.C. 81 MG Tablet PO (08:20)
[2025-01-07] MEDS: Multivitamin (Healthy Eyes) Capsule 1 CAP PO ×2 (08:21→21:27)
[2025-01-07] MEDS: Cholecalciferol (Vit D3) 125 MCG CAPSULE (5,000 UNITS) PO (08:22)
[2025-01-07] MEDS: Zinc Sulfate 50 mg zinc (220 mg) ORAL capsule PO (08:22)
[2025-01-07] MEDS: Insulin Human 75/25 Kwickpen 28 UNIT SC (08:27)
[2025-01-07] MEDS: Polyethylene Glycol 3350 17 GM PACKET PO (11:36)
--- NOTE | 2025-01-07 12:43 | CASEMGMT ---
NANCI DELEON spoke with therapy who states pt would benefit from OP therapy at mt. NANCI DELEON Assessment: Face to Face with pt for initial transition planning/care coordination assessment. NANCI DELEON introduced self and role at [facility], pt voices understanding and consents to assessment. Pt is A&O x4 and answers all questions appropriately at this time. Pt sitting up in chair, just finished with therapy with at bedside. Care providers, pharmacy, and demographics verified/updated. Admitting Dx:frequent falls, generalized weakness Strata Score: 3 PCP:Janell Specialists:Poli, cardio; Dayron, neuro; Patricia Nazario, pulm; Merritt, pain mgmt Preferred Pharmacy: [facility] Insurance: [employer] Prescription Benefit: yes LNOK: Iris Syed, ; Ulises Syed, son Living Arrangements: Pt lives with in a single story home with 5 steps to enter with bilat rails. Pt reports he is I in ADLs and performs IADLs. Pt denies concerns at home. Transportation: Pt drives self and denies concerns with transportation. DME:shower chair, grab bars in bathroom, BGM with sufficient supply of strips and lancets, walker in the car, rollator HHC/SNF: Pt denies hx of HHC or SNF stays. Reports has a nurse through the insurance that comes every 3 months. Pt states no concerns with going home at time of dc. Pt is interested in OP therapy. He states he has gone to therapy before and prefers to go back to [facility]. He would like appt set up for him and he prefers an afternoon appt. Pt states no further concerns/needs. CM to follow. Advised pt to ask CM if any further questions/concerns/needs arise, voices understanding. Pt Goal: Home with OP therapy Plan: Home with OP therapy Cooper CHRISTINE CM
--- NOTE | 2025-01-07 13:51 | PN_ITS ---
Subjective Subjective Patient seen and examined. He was admitted with a complaint of mechanical falls. He had no active complaints right now. He was seen with his nurse by his bedside. He denied any fever or chills, headache, palpitations, nausea vomiting or any other symptoms. Review of systems otherwise negative. He has remained hemodynamically stable. Objective Data Objective Data Vital Signs: Vital Signs Temp Pulse Resp BP Pulse Ox O2 Del Method 98.3 F 72 18 136/78 H 95 Room Air 01/07/25 08:16 01/07/25 08:16 01/07/25 08:16 01/07/25 08:16 01/07/25 08:16 01/07/25 10:12 Oxygen Delivery Method Room Air Weight: 220 lb 14.451 oz Body Mass Index (BMI) 37.9 Intake & Output: Intake and Output for Last 24 Hours 01/05/25 01/06/25 01/07/25 23:59 23:59 23:59 Intake Total 1110 / 1110 Output Total 400 / 400 Balance 710 / 710 Lab / Micro Data 01/07/25 06:09 01/07/25 06:09 Labs: Laboratory Results - last 24 hr 01/07/25 01:20: Urine Color Yellow, Urine Clarity Clear, Urine pH 6.0, Ur Specific [place] 1.015, Urine Protein 30 H, Urine Glucose (UA) Normal, Urine Ketones 5 H, Urine Occult Blood Negative, Urine Nitrite Negative, Urine Bilirubin Negative, Urine Urobilinogen Normal, Ur Leukocyte Esterase 500 H, Urine RBC 0 SEEN, Urine WBC 10-25 SEEN, Ur Squamous Epith Cells 0-5 SEEN, Ur Transition Epith Cell 0-5 SEEN, Calcium Oxalate Crystal RARE, Urine Bacteria 1+, Urine Mucus 0 SEEN 01/07/25 01:25: WBC 7.0, RBC 3.96 L, Hgb 13.0, Hct 38.6 L, MCV 97.5 H, MCH 32.8 H, MCHC 33.7, RDW Std Deviation 50.0 H, RDW Coeff of Perla 13.7, Plt Count 226, MPV 8.7, Immature Gran % (Auto) 0.900, Neut % (Auto) 79.1 H, Lymph % (Auto) 10.0 L, [place] % (Auto) 8.0, Eos % (Auto) 1.4, Baso % (Auto) 0.6, Absolute Neuts (auto) 5.5, Absolute Lymphs (auto) 0.70 L, Nucleated RBC % 0, PT 14.5, INR 1.1, APTT 29.1, Sodium 135, Potassium 4.7, Chloride 95 L, Carbon Dioxide 26.2, Anion Gap 14, BUN 23 H, Creatinine 1.72 H, Estim Creat Clear Calc 32.78 L, Est GFR (MDRD) Non-Af 38 L, BUN/Creatinine Ratio 13.3, Glucose 124 H, Calcium 9.8, Total Bilirubin 0.55, AST 22, ALT < 5, Alkaline Phosphatase 53, Total Protein 6.7, Albumin 4.4, Globulin 2.3, Albumin/Globulin Ratio 1.9, Lipase 20, TSH 1.110, Free T4 1.20, Free T3 pg/dL 2.5 01/07/25 06:09: WBC 7.7, RBC 3.85 L, Hgb 12.8 L, Hct 37.4 L, MCV 97.1 H, MCH 33.2 H, MCHC 34.2, RDW Std Deviation 48.9 H, RDW Coeff of Perla 13.8, Plt Count 220, MPV 8.8, Immature Gran % (Auto) 1.000 H, Neut % (Auto) 73.2 H, Lymph % (Auto) 13.3 L, [place] % (Auto) 10.2 H, Eos % (Auto) 1.6, Baso % (Auto) 0.7, Absolute Neuts (auto) 5.6, Absolute Lymphs (auto) 1.02, Nucleated RBC % 0, Sodium 138, Potassium 4.3, Chloride 101, Carbon Dioxide 25.0, Anion Gap 12, BUN 21 H, Creatinine 1.57 H, Estim Creat Clear Calc 35.45 L, Est GFR (MDRD) Non-Af 42 L, BUN/Creatinine Ratio 13.1, Glucose 121 H, Calcium 9.4 01/07/25 06:40: POC Glucose 129 H 01/07/25 08:26: POC Glucose 142 H Radiography Diagnostic Testing: Radiology Impression Brain CT 01/07/25 01:10 IMPRESSION: No acute intracranial findings Reading Location: [facility] Cervical Sp[address] 01/07/25 01:10 IMPRESSION: No acute cervical spine injury. Reading Location: [place] [address] Chest X-Ray 01/07/25 01:49 IMPRESSION: No acute chest findings. Reading Location: [place] [address] Physical Exam Const alert, oriented x3 and no apparent distress General Appearance: cooperative HEENT normocephalic, moist oral mucous membranes and oropharynx normal HEENT Narrative: has ecchymosis beneath his eyes due to mechanical fall Eyes EOMs intact bilaterally Neck no lymphadenopathy and supple Lymph Lymphatic: no lymphadenopathy noted Resp normal respiratory effort, normal air movement and clear to auscultation bilaterally Cardio regular rate, regular rhythm, S1 normal heart sound, S2 normal heart sound and no murmurs GI normal to inspection, nondistended, normoactive bowel sounds, soft to palpation, non-tender and non-distended Extremity normal capillary refill, no clubbing, cyanosis or edema and no calf tenderness General Extremity: no tenderness to palpation of joints or extremities Skin General Skin Exam: no breakdown Neuro CN's II-XII intact bilaterally, no focal motor deficits and no sensory deficits noted Motor Exam: general weakness Psych thought process normal and cooperative Appearance: appropriate Assessment & Plan Assessment/Plan (1) Urinary tract infection: (2) Generalized weakness: (3) Multiple falls: PLAN: Plan # Debility and weakness due to mechanical falls. * Patient had had several falls at home. PT OT on board. Fall precautions. Will benefit from placement. Case management on board to help facilitate this. #UTI: On IV Rocephin. Urine cultures pending. #History of Parkinson's disease: Stable. #BPH: On finasteride #Hypothyroidism: On Synthroid #CAD: On Imdur and aspirin as well as statin and imdur #Type 2 diabetes mellitus: NPH 70/30 insulin twice daily dosing. Also on metformin. Insulin sliding scale. Checks ACHS. #Hypertension: On amlodipine DVT prophylaxis: SCDs Disposition: Will benefit from placement. Charges/Coding Visit Charges Inpatient E&M: 22036 Subs Hosp L2
[2025-01-07] MEDS: Insulin Human 75/25 Kwickpen 20 UNIT SC (16:47)
[2025-01-07] MEDS: 0.9% Normal Saline (250mL Bag) 250 ML 15 ML IV (21:28)
[2025-01-07] MEDS: 0.9% Saline Lock 10 ML Syringe IV (21:28)
[2025-01-08 05:34] VITALS: BP 138/66; PULSE 65; RESP 18; TEMP 36.4; O2SAT 99
[2025-01-08 08:09] VITALS: O2SAT 94
[2025-01-08 08:27] LABS: Hematocrit 39.2 % (40-54); Hemoglobin 13.6 g/dL (13.0-16.5); Immature Granulocytes Count 0.030 X10^3/uL (0.0-0.0); Mean Corp Hgb Conc 34.7 g/dL (32-36); Mean Corpuscular Volume 96.1 fL (80-94); Mean Platelet Vol. 8.8 fl (6.2-12.0); NRBC Flagged by Analyzer 0 % (0-5); Platelet Count 207 K/mm3 (150-450); RBC Distribution Width CV 13.8 % (11.6-14.6); RBC Distribution Width SD 48.9 fl (35.1-43.9); Red Blood Count 4.08 M/mm3 (4.6-6.2); White Blood Count 5.2 K/mm3 (4.4-11.0)
[2025-01-08 09:04] LABS: Anion Gap 12 (5-15); BUN 18 mg/dL (4-19); BUN/Creat Ratio 12.2 RATIO (10-20); Calcium,Total 9.2 mg/dL (7.6-11.0); Carbon Dioxide 24.5 mmol/L (21.0-32.0); Chloride 104 mmol/L (98-108); Estimated Creatinine Clearance 38.65 ml/min (50-250); Glucose 108 mg/dL (70-99); Potassium 3.7 mmol/L (3.3-5.1)
[2025-01-08] MEDS: Cholecalciferol (Vit D3) 125 MCG CAPSULE (5,000 UNITS) PO (09:22)
[2025-01-08] MEDS: Multivitamin (Healthy Eyes) Capsule 1 CAP PO (09:22)
[2025-01-08] MEDS: Zinc Sulfate 50 mg zinc (220 mg) ORAL capsule PO (09:22)
[2025-01-08] MEDS: Polyethylene Glycol 3350 17 GM PACKET PO (09:24)
[2025-01-08] MEDS: Aspirin E.C. 81 MG Tablet PO (09:24)
[2025-01-08] MEDS: Insulin Human 75/25 Kwickpen 28 UNIT SC (09:24)
[2025-01-08 10:04] VITALS: BP 152/95; PULSE 77; RESP 16; TEMP 36.2; O2SAT 93
--- NOTE | 2025-01-08 11:05 | CASEMGMT ---
Addendum entered by Carlos Angel 01/08/25 11:17: NANCI DELEON informed asking for info on AL to have for future reference. NANCI DELEON to room. Provided and pt w/list of local AL's, [facility] info, and [facility]/AL waivier info. They voice appreciation. Original Note: NANCI DELEON NOTE: Script received from Dr Ovalle for OP PT/OT. Appts scheduled @ [facility] per pt request. Appt's added to pt's discharge plan. Pt and made aware of appts and voice appreciation. They deny having any other discharge needs or concerns. Christiano HILL RN, CM
[2025-01-08 11:17] VITALS: BP 140/88; BP 142/88; BP 144/88
--- NOTE | 2025-01-08 11:17 | DCINST_ITS ---
Discharge Instructions DC O2, CPAP, BIPAP needs Home O2 Discharge instructions: No Dressing / Incision Weight Bearing Status: Weight bearing as tolerated Dressing / Incision Call your doctor if you observe: Fever of 101 or Higher, Shortness of breath and Dizziness Follow Up Care Test Results: Test results from this visit will be discussed in further detail at your follow- up appointment, if applicable. Discharge Plan Admission Admit Date/Time: 01/07/25 03:22 Primary Reason for Your Visit: debility, mechanical falls, UTI Attending Provider: Dia Ovalle Primary Care Provider: Marie Maciel Consulting Providers: Junior Valverde Instructions Patient Instructions: ED Urinary Tract Infections in Men Discharge Orders/Prescriptions Prescriptions: New nitrofurantoin monohyd/m-cryst [Macrobid] 100 mg capsule 100 mg PO BID Qty: 10 0RF Rx Instructions: must administer with a meal/food Continued PreserVision AREDS 7,160 unit- 113 mg-100 unit tablet 1 tab PO BID Rx Instructions: administer with AM and PM meals (DME) Left AFO See Rx Instructions .Route .MEDSUPPLY Qty: 1 0RF Rx Instructions: As directed (DME) Compression stockings (10-20) See Rx Instructions .Route .MEDSUPPLY Qty: 2 0RF Rx Instructions: As directed carbidopa-levodopa [Sinemet] 25-100 mg tablet 2 tab PO TID Qty: 180 6RF Humulin 70/30 U-100 Insulin 100 unit/mL (70-30) suspension 28 unit subcut BID Rx Instructions: subcutaneously twice a day; 28 units each AM, and 20 units each PM. furosemide 40 mg tablet 40 mg PO DAILY Qty: 90 3RF Rx Instructions: 40mg PO BID x 3-5 days followed by 40mg PO daily (12/23/2024) ranolazine 500 mg tablet extended release 12 hr 500 mg PO BID Qty: 180 0RF cholecalciferol (vitamin D3) 5,000 UNIT capsule 5,000 unit PO DAILY Patient Comments: SUPPLIMENT finasteride 5 MG tablet 5 mg PO DAILY Patient Comments: PROSTATE aspirin 81 MG tablet,delayed release (DR/EC) 81 mg PO DAILY acetaminophen 500 MG tablet 1,000 mg PO Q6H PRN PRN (Reason: Pain Score 1-3/10) 0RF zinc acetate 50 mg (zinc) capsule 50 mg PO DAILY ferrous sulfate [Feosol] 325 mg (65 mg iron) tablet 65 mg PO DAILY cyanocobalamin (vitamin B-12) [Vitamin B-12] 1,000 mcg tablet 1,000 mcg PO DAILY ascorbic acid (vitamin C) [C-1000] 1,000 mg tablet 1 g PO DAILY folic acid 1 mg tablet 1 mg PO DAILY Qty: 30 0RF hydrocodone-acetaminophen 7.5-325 mg tablet 1 tab PO TID PRN PRN (Reason: pain) (DME) Elizabeth Figueroa See Rx Instructions .Route .MEDSUPPLY Qty: 1 0RF Rx Instructions: difficulty walking short distance. expires in 5 years (DME) pen needle, diabetic 32 gauge x 1/4 needle See Rx Instructions .ROUTE .MEDSUPPLY Qty: 100 2RF Rx Instructions: As directed levothyroxine 50 mcg tablet 50 mcg PO DAILY Qty: 90 3RF escitalopram oxalate 10 mg tablet 10 mg PO DAILY Qty: 90 3RF Rx Instructions: Take 1/2 tablet for 4 days then increase to 1 tablet. pantoprazole 40 mg tablet,delayed release (DR/EC) See Rx Instructions .ROUTE .COMPLEX Qty: 90 3RF Dose Instruction: TAKE 1 TABLET BY MOUTH ONCE DAILY FOR REFLUX Rx Instructions: TAKE 1 TABLET BY MOUTH ONCE DAILY FOR REFLUX metformin 500 mg tablet 500 mg PO BIDCM Qty: 180 3RF isosorbide mononitrate 30 mg tablet extended release 24 hr 30 mg PO DAILY Qty: 90 3RF pravastatin 20 mg tablet 20 mg PO DAILY Qty: 90 3RF amlodipine 5 mg tablet 5 mg PO DAILY Qty: 90 3RF trazodone 50 mg tablet 50 mg PO QHS PRN PRN (Reason: insomnia) Qty: 60 1RF fludrocortisone 0.1 mg tablet See Rx Instructions PO .COMPLEX Qty: 28 2RF Rx Instructions: Take 1 tablet orally in the morning 6 days/week (Monday, Monday, Monday, , Monday, Monday) clopidogrel 75 mg tablet 75 mg PO DAILY Qty: 90 3RF Referrals / Follow Up: Marie Maciel MD [Primary Care Provider] - Within 1 Week Disposition Disposition (needs filled in before D/C Order can be placed): Home, Self Care
--- NOTE | 2025-01-08 11:20 | DS.PCM_ITS ---
Providers Date of Admission: 01/07/25 Date of Discharge: 01/08/25 Primary Care Physician: Dr. Marie Maciel MD Reason For Visit: FREQUENT FALLS, GENERALIZED WEAKNESS Diagnosis Discharge Diagnosis (1) Urinary tract infection: Status: Acute Code(s): N39.0 - Urinary tract infection, site not specified (2) Generalized weakness: Status: Acute Code(s): R53.1 - Weakness (3) Multiple falls: Status: Acute Code(s): R29.6 - Repeated falls Plan # Debility and weakness due to mechanical falls. * Patient had had several falls at home. PT OT on board. Fall precautions. Will benefit from placement. Case management on board to help facilitate this. #UTI: On IV Rocephin. Urine cultures pending. #History of Parkinson's disease: Stable. #BPH: On finasteride #Hypothyroidism: On Synthroid #CAD: On Imdur and aspirin as well as statin and imdur #Type 2 diabetes mellitus: NPH 70/30 insulin twice daily dosing. Also on metformin. Insulin sliding scale. Checks ACHS. #Hypertension: On amlodipine DVT prophylaxis: SCDs Disposition: Will benefit from placement. Medications at Discharge Home Medications cholecalciferol (vitamin D3) 125 mcg (5,000 unit) capsule 5,000 unit PO DAILY vitamin 06/29/15 finasteride 5 mg tablet 5 mg PO DAILY prostate 06/29/15 aspirin 81 mg tablet,delayed release 81 mg PO DAILY heart health 07/24/15 acetaminophen 500 mg tablet 1,000 mg (2 x 500 mg) PO Q6H PRN PRN Pain Score 1- 3/02/19/20 Handi cap Placard #1 ea 10/14/20 vitamins A,C,I-susq-xciqmf 2,148 mcg-113 mg-45 mg-17.4 mg tablet (PreserVision AREDS) 1 tab PO BID supplement 12/17/20 pen needle, diabetic 32 gauge x 1/4 #100 ea 12/25/20 Compression stockings (10-20) #2 ea 01/04/24 Left AFO #1 ea 01/04/24 levothyroxine 50 mcg tablet 50 mcg PO DAILY thyroid #90 tabs 02/01/24 escitalopram oxalate 10 mg tablet 10 mg PO DAILY #90 tabs 03/05/24 pantoprazole 40 mg tablet,delayed release See Rx Instructions .Route .COMPLEX #90 tabs 03/05/24 metformin 500 mg tablet 500 mg PO BIDCM diabetes #180 tabs 03/19/24 isosorbide mononitrate 30 mg tablet,extended release 24 hr 30 mg PO DAILY #90 TABLETS 04/01/24 ascorbic acid (vitamin C) 1,000 mg tablet (C-1000) 1 g PO DAILY supplement 06/15/24 cyanocobalamin (vitamin B-12) 1,000 mcg tablet (Vitamin B-12) 1,000 mcg PO DAILY supplement 06/15/24 ferrous sulfate 325 mg (65 mg iron) tablet (Feosol) 65 mg PO DAILY iron 06/15/24 folic acid 1 mg tablet 1 mg PO DAILY #30 tabs 06/15/24 zinc acetate 50 mg (zinc) capsule 50 mg PO DAILY supplement 06/15/24 insulin human U-100 NPH-regulr 70-30 mix 100 unit/mL subcutaneous susp (Humulin 70/30 U-100 Insulin) 28 unit subcut BID dm 06/24/24 pravastatin 20 mg tablet 20 mg PO DAILY cholesterol #90 tabs 07/23/24 carbidopa 25 mg-levodopa 100 mg tablet (Sinemet) 2 tab PO TID #180 tabs 08/01/24 amlodipine 5 mg tablet 5 mg PO DAILY BP #90 tabs 09/27/24 trazodone 50 mg tablet 50 mg PO QHS PRN PRN insomnia #60 tabs 10/03/24 fludrocortisone 0.1 mg tablet See Rx Instructions PO .COMPLEX #28 tabs 10/23/24 clopidogrel 75 mg tablet 75 mg PO DAILY for cholesterol #90 TABLETS 11/08/24 hydrocodone 7.5 mg-acetaminophen 325 mg tablet 1 tab PO TID PRN PRN pain 11/19/24 furosemide 40 mg tablet 40 mg PO DAILY #90 TABLETS 12/23/24 ranolazine 500 mg tablet,extended release,12 hr 500 mg PO BID #180 tabs 01/06/25 nitrofurantoin monohydrate/macrocrystals 100 mg capsule (Macrobid) 100 mg PO BID #10 caps 01/08/25 Hospital Course Operations None Procedures None Summary of Care Provided Minutes Spent on Discharge: 44 Hospital Course: Patient is an 89-year-old male with past medical history as outlined was admitted through the ED on 01/07/2025 with complaint of generalized weakness and multiple falls. He had been having multiple falls and weakness and had several falls recently. He had been getting weaker and more debilitated at home so he came in to the ED. On admission CT of the brain showed no acute intracranial pathology and CT cervical spine was also negative for any fracture. Urinalysis showed no evidence of UTI. He was started on IV ceftriaxone. Urine cultures were ordered which grew mixed gram positive and gram negative organisms. PT OT worked with patient and felt that he was stable enough to go home with home health care. Patient remained stable and was discharged home on 01/08/2025. He was discharged with home health care and on p.o. cefdinir 300 mg twice daily for 5 days. He is to follow-up with his primary care doctor within 1 to 2 weeks. Patient seen and examined prior to discharge with his nurse by his bedside. He had an uneventful night. Review of systems is otherwise negative. Labs and vitals reveiwed. Home medications reviewed and reconciled. His was also by his bedside and her concerns were addressed. Physical Exam Const alert, oriented x3 and no apparent distress General Appearance: cooperative, comfortable and well developed HEENT normocephalic, head/scalp atraumatic, hearing grossly normal bilaterally, moist oral mucous membranes and oropharynx normal Eyes PERRL and EOMs intact bilaterally Neck supple Lymph Lymphatic: no lymphedema noted Resp normal respiratory effort, normal air movement and clear to auscultation bilaterally Cardio regular rate, regular rhythm, S1 normal heart sound, S2 normal heart sound and no murmurs Rhythm: abnormal rhythm irregularly irregular GI normal to inspection, nondistended, normoactive bowel sounds, soft to palpation, non-tender and non-distended Extremity normal to inspection, full ROM, normal capillary refill, no clubbing, cyanosis or edema and no calf tenderness General Extremity: no tenderness to palpation of joints or extremities Skin no rashes or lesions noted General Skin Exam: no breakdown Neuro oriented x3, CN's II-XII intact bilaterally, moves all extremities, no focal motor deficits and no sensory deficits noted Motor Exam: strength 5/5 throughout and general weakness Psych Appearance: appropriate Weight / BMI Weight Weight: 220 lb 14.451 oz Body Mass Index (BMI) 37.9 ABG / Lab / Microbiology Data 01/08/25 08:07 01/08/25 08:07 Laboratory: Laboratory Results - last 24 hr 01/07/25 16:45: POC Glucose 159 H 01/08/25 08:07: WBC 5.2, RBC 4.08 L, Hgb 13.6, Hct 39.2 L, MCV 96.1 H, MCH 33.3 H, MCHC 34.7, RDW Std Deviation 48.9 H, RDW Coeff of Perla 13.8, Plt Count 207, MPV 8.8, Immature Gran % (Auto) 0.600, Neut % (Auto) 66.6, Lymph % (Auto) 17.8 L , [place] % (Auto) 10.3 H, Eos % (Auto) 3.9, Baso % (Auto) 0.8, Absolute Neuts (auto) 3.5, Absolute Lymphs (auto) 0.92, Nucleated RBC % 0, Sodium 140, Potassium 3.7, Chloride 104, Carbon Dioxide 24.5, Anion Gap 12, BUN 18, C reatinine 1.44 H, Estim Creat Clear Calc 38.65 L, Est GFR (MDRD) Non-Af 47 L, BUN/Creatinine Ratio 12.2, Glucose 108 H, Calcium 9.2 D/C Instructions Discharge Activity: Return to Normal Activity Weight Bearing Status: Weight bearing as tolerated Call your doctor if you observe: Fever of 101 or Higher, Shortness of breath and Dizziness DC O2, CPAP, BIPAP Needs Home O2 Discharge instructions: No DC home with Oxygen: No Meaningful Use Info Meaningful Use Meaningful Use Diagnoses (Choose all that apply): None applicable Discharge Plan Admission Admit Date/Time: 01/07/25 03:22 Primary Reason for Your Visit: debility, mechanical falls, UTI Attending Provider: Dia Ovalle Primary Care Provider: Marie Maciel Consulting Providers: Junior Valverde Instructions Patient Instructions: ED Urinary Tract Infections in Men Discharge Orders/Prescriptions Prescriptions: New nitrofurantoin monohyd/m-cryst [Macrobid] 100 mg capsule 100 mg PO BID Qty: 10 0RF Rx Instructions: must administer with a meal/food Continued PreserVision AREDS 7,160 unit- 113 mg-100 unit tablet 1 tab PO BID Rx Instructions: administer with AM and PM meals (DME) Left AFO See Rx Instructions .Route .MEDSUPPLY Qty: 1 0RF Rx Instructions: As directed (DME) Compression stockings (10-20) See Rx Instructions .Route .MEDSUPPLY Qty: 2 0RF Rx Instructions: As directed carbidopa-levodopa [Sinemet] 25-100 mg tablet 2 tab PO TID Qty: 180 6RF Humulin 70/30 U-100 Insulin 100 unit/mL (70-30) suspension 28 unit subcut BID Rx Instructions: subcutaneously twice a day; 28 units each AM, and 20 units each PM. furosemide 40 mg tablet 40 mg PO DAILY Qty: 90 3RF Rx Instructions: 40mg PO BID x 3-5 days followed by 40mg PO daily (12/23/2024) ranolazine 500 mg tablet extended release 12 hr 500 mg PO BID Qty: 180 0RF cholecalciferol (vitamin D3) 5,000 UNIT capsule 5,000 unit PO DAILY Patient Comments: SUPPLIMENT finasteride 5 MG tablet 5 mg PO DAILY Patient Comments: PROSTATE aspirin 81 MG tablet,delayed release (DR/EC) 81 mg PO DAILY acetaminophen 500 MG tablet 1,000 mg PO Q6H PRN PRN (Reason: Pain Score 1-3/10) 0RF zinc acetate 50 mg (zinc) capsule 50 mg PO DAILY ferrous sulfate [Feosol] 325 mg (65 mg iron) tablet 65 mg PO DAILY cyanocobalamin (vitamin B-12) [Vitamin B-12] 1,000 mcg tablet 1,000 mcg PO DAILY ascorbic acid (vitamin C) [C-1000] 1,000 mg tablet 1 g PO DAILY folic acid 1 mg tablet 1 mg PO DAILY Qty: 30 0RF hydrocodone-acetaminophen 7.5-325 mg tablet 1 tab PO TID PRN PRN (Reason: pain) (DME) Elizabeth Figueroa See Rx Instructions .Route .MEDSUPPLY Qty: 1 0RF Rx Instructions: difficulty walking short distance. expires in 5 years (DME) pen needle, diabetic 32 gauge x 1/4 needle See Rx Instructions .ROUTE .MEDSUPPLY Qty: 100 2RF Rx Instructions: As directed levothyroxine 50 mcg tablet 50 mcg PO DAILY Qty: 90 3RF escitalopram oxalate 10 mg tablet 10 mg PO DAILY Qty: 90 3RF Rx Instructions: Take 1/2 tablet for 4 days then increase to 1 tablet. pantoprazole 40 mg tablet,delayed release (DR/EC) See Rx Instructions .ROUTE .COMPLEX Qty: 90 3RF Dose Instruction: TAKE 1 TABLET BY MOUTH ONCE DAILY FOR REFLUX Rx Instructions: TAKE 1 TABLET BY MOUTH ONCE DAILY FOR REFLUX metformin 500 mg tablet 500 mg PO BIDCM Qty: 180 3RF isosorbide mononitrate 30 mg tablet extended release 24 hr 30 mg PO DAILY Qty: 90 3RF pravastatin 20 mg tablet 20 mg PO DAILY Qty: 90 3RF amlodipine 5 mg tablet 5 mg PO DAILY Qty: 90 3RF trazodone 50 mg tablet 50 mg PO QHS PRN PRN (Reason: insomnia) Qty: 60 1RF fludrocortisone 0.1 mg tablet See Rx Instructions PO .COMPLEX Qty: 28 2RF Rx Instructions: Take 1 tablet orally in the morning 6 days/week (Monday, Monday, Monday, , Monday, Monday) clopidogrel 75 mg tablet 75 mg PO DAILY Qty: 90 3RF Referrals / Follow Up: Marie Maciel MD [Primary Care Provider] - Within 1 Week Disposition Disposition (needs filled in before D/C Order can be placed): Home, Self Care Charges/Coding Visit Charges Inpatient E&M: 06554 Disch Hosp >30min
--- NOTE | 2025-01-08 12:10 | PHA.DC.MC.R ---
Pharmacy [facility] has performed discharge medication reconciliation and counseling for this patient. 1. NITROFURANTOIN 100MG PO BID X 5 DAYS The patient's discharge medication list was reviewed for discrepancies and discrepancies were resolved. The patient was counseled on the following discharge medications and changes in medications for homegoing were reviewed. The Reason for Use, instructions for use, and potential side effects were reviewed for all new medications. The patient's questions regarding all of their medications were answered. The patient was able to verbally demonstrate an understanding of their discharge medications. Medications at Discharge Home Medications cholecalciferol (vitamin D3) 125 mcg (5,000 unit) capsule 5,000 unit PO DAILY vitamin 06/29/15 finasteride 5 mg tablet 5 mg PO DAILY prostate 06/29/15 aspirin 81 mg tablet,delayed release 81 mg PO DAILY heart health 07/24/15 acetaminophen 500 mg tablet 1,000 mg (2 x 500 mg) PO Q6H PRN PRN Pain Score 1-302/19/20 Handi cap Placard #1 ea 10/14/20 vitamins A,C,Y-mpsj-bvwsta 2,148 mcg-113 mg-45 mg-17.4 mg tablet (PreserVision AREDS) 1 tab PO BID supplement 12/17/20 pen needle, diabetic 32 gauge x 1/4 #100 ea 12/25/20 Compression stockings (10-20) #2 ea 01/04/24 Left AFO #1 ea 01/04/24 levothyroxine 50 mcg tablet 50 mcg PO DAILY thyroid #90 tabs 02/01/24 escitalopram oxalate 10 mg tablet 10 mg PO DAILY #90 tabs 03/05/24 pantoprazole 40 mg tablet,delayed release See Rx Instructions .Route .COMPLEX #90 tabs 03/05/24 metformin 500 mg tablet 500 mg PO BIDCM diabetes #180 tabs 03/19/24 isosorbide mononitrate 30 mg tablet,extended release 24 hr 30 mg PO DAILY #90 TABLETS 04/01/24 ascorbic acid (vitamin C) 1,000 mg tablet (C-1000) 1 g PO DAILY supplement 06/15/24 cyanocobalamin (vitamin B-12) 1,000 mcg tablet (Vitamin B-12) 1,000 mcg PO DAILY supplement 06/15/24 ferrous sulfate 325 mg (65 mg iron) tablet (Feosol) 65 mg PO DAILY iron 06/15/24 folic acid 1 mg tablet 1 mg PO DAILY #30 tabs 06/15/24 zinc acetate 50 mg (zinc) capsule 50 mg PO DAILY supplement 06/15/24 insulin human U-100 NPH-regulr 70-30 mix 100 unit/mL subcutaneous susp (Humulin 70/30 U-100 Insulin) 28 unit subcut BID dm 06/24/24 pravastatin 20 mg tablet 20 mg PO DAILY cholesterol #90 tabs 07/23/24 carbidopa 25 mg-levodopa 100 mg tablet (Sinemet) 2 tab PO TID #180 tabs 08/01/24 amlodipine 5 mg tablet 5 mg PO DAILY BP #90 tabs 09/27/24 trazodone 50 mg tablet 50 mg PO QHS PRN PRN insomnia #60 tabs 10/03/24 fludrocortisone 0.1 mg tablet See Rx Instructions PO .COMPLEX #28 tabs 10/23/24 clopidogrel 75 mg tablet 75 mg PO DAILY for cholesterol #90 TABLETS 11/08/24 hydrocodone 7.5 mg-acetaminophen 325 mg tablet 1 tab PO TID PRN PRN pain 11/19/24 furosemide 40 mg tablet 40 mg PO DAILY #90 TABLETS 12/23/24 ranolazine 500 mg tablet,extended release,12 hr 500 mg PO BID #180 tabs 01/06/25 nitrofurantoin monohydrate/macrocrystals 100 mg capsule (Macrobid) 100 mg PO BID #10 caps 01/08/25
== END 2025-01-08 13:28 | disposition home or self-care (01) | DRG 690 ==
LOC: ED 03:13 → MS3 03:43
PROVIDERS: Admitting Provider Family Medicine; Emergency Provider Emergency Medicine; PCP Internal Medicine; Visit Provider Student in an Organized Health Care Education/Training Program
DX: N39.0 Urinary tract infection, site not specified (principal); G20.A1 Parkinson's disease without dyskinesia, without mention of fluctuations; E11.22 Type 2 diabetes mellitus with diabetic chronic kidney disease; Z79.4 Long term (current) use of insulin; N18.30 Chronic kidney disease, stage 3 unspecified; E03.9 Hypothyroidism, unspecified; D50.9 Iron deficiency anemia, unspecified; B96.89 Other specified bacterial agents as the cause of diseases classified elsewhere; I12.9 Hypertensive chronic kidney disease with stage 1 through stage 4 chronic kidney disease, or unspecified chronic kidney disease; E78.5 Hyperlipidemia, unspecified; I25.10 Atherosclerotic heart disease of native coronary artery without angina pectoris; G31.84 Mild cognitive impairment of uncertain or unknown etiology; S00.83XA Contusion of other part of head, initial encounter; K21.9 Gastro-esophageal reflux disease without esophagitis; Z79.02 Long term (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 of antithrombotics/antiplatelets; Z79.84 Long term (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 of oral hypoglycemic drugs; Z79.890 Hormone replacement therapy; Z86.73 Personal history of transient ischemic attack (TIA), and cerebral infarction without residual deficits; Z79.899 Other long term (current) drug therapy; Z87.891 Personal history of nicotine dependence; Z95.5 Presence of coronary angioplasty implant and graft; R53.1 Weakness; R53.81 Other malaise; N40.0 Benign prostatic hyperplasia without lower urinary tract symptoms; Z79.82 Long term (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 of aspirin; W19.XXXA Unspecified fall, initial encounter; I45.10 Unspecified right bundle-branch block; R29.6 Repeated falls; G47.33 Obstructive sleep apnea (adult) (pediatric); E66.9 Obesity, unspecified; Z68.38 Body mass index [BMI] 38.0-38.9, adult
CPT/HCPCS: 36415; 70450; 71045; 72125; 80048; 80053; 81001; 82962; 83690; 84439; 84443; 84481; 85025; 85610; 85730; 87086; 87088; 93005; 96361; 96365; 96366; 97161; 97166; 99221; 99285; A4216; G0378

== ENCOUNTER → 2025-01-29 | Outpatient (CLI) | payer MEDICARE, SELFPAY ==
--- OUTSIDE RECORDS SUMMARY | 2025-01-29 06:36 | XMS RPT_ITS | CCD ---
Author Organization [facility] Care Team Providers Care Industrial Relations Director Name Role Phone Saurabh Benites MD Unavailable Dr. Keron Maciel Primary Care Provider Dr. Keron Maciel Referring Provider [phone]([facility])[phone] Alo AUTOMATIC EDGER, AUTOMATIC EDGER-C Glory Attending Provider Dr. Soham Jones III Referring Provider Dr. Americo Nazario Attending Provider 1([facility])[phone] Austin Mora Attending Provider 1([facility])[phone] Keron Maciel Attending Provider [phone] Dr. David Ashton Attending Provider Dr. Keron Maciel Primary Care Provider Dr. Keron Maciel Referring Provider [phone] Alo AUTOMATIC EDGER, AUTOMATIC EDGER-C Glory Attending Provider Dr. Keron Maciel Attending Provider [phone] Keron Maciel Primary Care Provider Dr. Keron Maciel Referring Provider [phone] Hood AUTOMATIC EDGER, AUTOMATIC EDGER-C Casey Attending Provider [phone] Dr. Keron Maciel Attending Provider [phone] Erick Sung Attending Provider Unavailable Dr. Keron Maciel Primary Care Provider Dr. Keron Maciel Referring Provider [phone] Olga PICKARD, NEERAJ Reza Attending Provider Dr. Keron Maciel Primary Care Provider Dr. Keron Maciel Referring Provider Whit AUTOMATIC EDGER, DENISE Vogel Attending Provider Olga PICKARD, PA [...] Unavailable Delta BROOKE, Dr. Sepulveda Emergency Provider [facility] AUTOMATIC EDGER-C, Zhen Montgomery Attending Provider Janell GUTIÉRREZ, Dr. Salazar Primary Care Provider Dr. Helio Corrales DO Attending Provider Savanna BROOKE, Dr. Cadet Emergency Provider Janell GUTIÉRREZ, Dr. Salazar Attending Provider Janell GUTIÉRREZ, Dr. Salazar Referring Provider Dr. Derick Sorenson DO Attending Provider Delta BROOKE, Dr. Sepulveda Emergency Provider [facility] AUTOMATIC EDGER-C, Zhen Attending Provider Dr. Tevin Tran DO Emergency Provider Dr. Tevin Tran DO Attending Provider Idris GUTIÉRREZ, Dr. Armstrong Attending Provider Nicolle GUTIÉRREZ, Dr. Pacheco Admit Provider Dr. Junior Valverde MD Attending Provider Nicolle GUTIÉRREZ, Dr. Pacheco Other Provider Yamile GUTIÉRREZ, Dr. Dia Melissa Attending Provider Yamile GUTIÉRREZ, Dr. Dia Melissa Other Provider Dayron GUTIÉRREZ, Dr. Villanueva Attending Provider Keron Maciel Attending Unavailable Janell, Keron Referring Unavailable Janell, Keron Primary Care Unavailable Janell, Keron Attending Unavailable Janell, Keron Referring Unavailable Janell, Keron Primary Care Unavailable Janell, Keron Referring Unavailable Janell, Keron Primary Care Unavailable Rich Padgett Attending Unavailable Tevin Tran Attending Unavailable Janell, Keron Primary Care Unavailable Helio Corrales Attending Unavailable Janell, Keron Primary Care Unavailable Janell, Keron Primary Care Unavailable Roof AUTOMATIC EDGER, Zhen H Attending Unavailable Roof AUTOMATIC EDGER, Zhen H Referring Unavailable Koram, Dia Belén Attending Unavailable Janell, Keron Primary Care Unavailable Tayam, Dia Belén Attending Unavailable Junior Valverde Consulting Unavailable Nicolle, Junior Admitting Unavailable Janell, Keron Primary Care Unavailable Janell, Keron Attending Unavailable Janell, Keron Primary Care Unavailable Janell, Keron Attending Unavailable Janell, Keron Primary Care Unavailable Janell, Keron Referring Unavailable Janell, Keron Primary Care Unavailable BaddoRich moody Attending Unavailable Janell, Keron Primary Care Unavailable Patti Steinberg Attending Unavailable Janell, Keron Attending Unavailable Janell, Keron Primary Care Unavailable Janell, Keron Referring Unavailable Janell, Keron Primary Care Unavailable AndrewdoRich moody Attending Unavailable Janell, Keron Referring Unavailable Janell, Keron Attending Unavailable Janell, Keron Primary Care Unavailable Janell, Keron Referring Unavailable Janell, Keron Attending Unavailable Janell, Keron Primary Care Unavailable Janell, Keron Attending Unavailable Janell, Keron Referring Unavailable Janell, Keron Primary Care Unavailable Janell, Keron Primary Care Unavailable David Ashton Attending Unavailable Junior Valverde Attending Unavailable Nicolle, Junior Admitting Unavailable ValverdeJunior dow Consulting Unavailable Janell, Keron Primary Care Unavailable Janell, Keron Primary Care Unavailable Janell, Keron Attending Unavailable AndrewdoRich moody Attending Unavailable Janell, Keron Referring Unavailable Janell, Keron Primary Care Unavailable Amalia Moncada Attending Unavailable Janell, Keron Primary Care Unavailable Neri Arana Admitting Unavailable Neri Arana Consulting Unavailable Janell, Keron Attending Unavailable Janell, Keron Primary Care Unavailable Joan Serna Attending Unavailable DaphneJoan Referring Unavailable Janell, Keron Primary Care Unavailable Janell, Keron Referring Unavailable Janell, Keron Primary Care Unavailable Lela Sherman NP Attending Unavailable Janell, Keron Attending Unavailable Janell, Keron Primary Care Unavailable Janell, Keron Referring Unavailable Janell, Keron Primary Care Unavailable Audelia Nayak Attending Unavail able Janell, Keron Referring Unavailable Janell, Keron Primary Care Unavailable Roof AUTOMATIC EDGER, Zhen Montgmoery Attending Unavailable Janell, Keron Attending Unavailable Janell, Keron Primary Care Unavailable Janell, Keron Attending Unavailable Janell, Keron Primary Care Unavailable Janell, Keron Referring Unavailable Janell, Keron Primary Care Unavailable Roof AUTOMATIC EDGER, Zhen Montgomery Attending Unavailable Dia Ovalle Attending Unavailable Junior Valverde Admitting Unavailable Junior Valverde Consulting Unavailable Janell, Keron Primary Care Unavailable Dia Ovalle Consulting Unavailable Janell, Keron Primary Care Unavailable Neri Arana Admitting Unavailable Neri Arana Consulting Unavailable Neri Arana Attending Unavailable Amalia Moncada Consulting Unavailable Amalia Moncada Attending Unavailable Derick Sorenson Attending Unavailable Janell, Keron Primary Care Unavailable Allergies Allergy Classification Reported Allergen(s) Allergy Type Date of Onset Reaction(s) Facility Thiazolidinediones (glitazones) (1 source) pioglitazone Drug Allergy 7 [facility] (4 sources) pioglitazone Drug Allergy 1 Rash & passes out, Rash [facility] Work Phone: (20 sources) Lisinopril Drug Allergy 2 [facility] (20 sources) Losartan Drug Allergy 2 [facility] (20 sources) Metoprolol Drug Allergy 2 [facility] (20 sources) pioglitazone; Translations: [PIOGLITAZONE HCL] Drug Allergy 7 Upset Stomach [facility] (15 sources) Naproxen Drug Allergy 5 HIVES [facility] (1 source) Lisinopril Drug Allergy 5 [facility] (1 source) Losartan Drug Allergy 5 [facility] (1 source) Metoprolol Drug Allergy 5 [facility] (1 source) Naproxen Drug Allergy [facility] Medications Current Medications Medication [...] pain November 19, 2024 12:00am Start: 06-15-2024 End: 01-07-2025 Start: 06-15-2024 Hydrocodone-Ac etaminophen 5-325 mg tablet [...] tablet by mouth daily as needed HYDROCODONE-ACETAMINOPHEN [id number] Juliann Levine BOBBIN PAINTER [id number] actuat albuterol 0.09 mg/actuat metered dose [...] inhaler Discontinued 2 NMA INHALATION Q4H 18 March 21, 2019 9:21am July 23, 2019 [...] AERS As needed - 90mcg/inh ALBUTEROL SULFATE [id number] David Ashton MD Comment on above: Inhale 2 Puffs as in structed every 4 hours as needed. Inhale 2-4 Puffs as instructed every 4 hours as needed for wheezing/shortness of breath. armodafinil 50 mg oral tablet (1 source) Start: 01-14-2025 Ascorbic Acid (7 sources) Vitamin C Start: [...] Start: 12-17-2020 take 2 tablets by mo [facility] once daily at dinner Vitamins A,C,W-Mbcf-Ypnobd (Preservision Areds) 7,160 unit- 113 mg-100 unit tablet Active 2 TABLET PO DAILY December 17, 2020 12:00am administer with AM and PM meals aspirin 81 mg delayed release oral tablet (20 sources) Nonsteroidal Anti-inflammatory Drug Start: 07-16-2015 Start: 07-16-2015 [facility] ASPIRIN 81 MG TABS One tablet by mouth daily ASPIRIN [id number] Audelia Espinoza PA-C Start: 10-28-2010 End: 06-16-2015 take 1 tablet by mouth once daily ASPIRIN 81 MG TABS One tablet by mouth daily ASPIRIN [id number] David Ashton MD Comment on above: Take [...] mg tablet Discontinued 0 .ROUTE .COMPLEX 150 January 04, 2024 9:51am March 28, 2024 6:25pm Take 2 tabs orally every morning, 1 tab every mid-day, and 2 tabs every night Start: 02-25-2021 End: 07-13-2021 Carbidopa-Levodopa (Sinemet) 25-100 mg tablet Discontinued 1 {tbl} PO THREE TIMES A DAY 90 February 25, 2021 2:02pm July 13, 2021 11:51am Start: 12-17-2020 End: 01-14-2025 Start: 12-17-2020 End: 02-25-2021 Carbidopa-Levodopa (Sinemet) 25-100 mg tablet Discontinued 1 {tbl} PO TWICE A DAY 60 December 17, [...] tablet by britt once daily. Compression stockings (10-20) (7 sources) [...] tablet by mouth twice daily FERROUS SULFATE [id number] Juliann Levine BOBBIN PAINTER finasteride 5 mg oral tablet (20 sources) 5-alpha Reductase Inhibitor Start: 05-29-2014 End: 05-31-2016 Comment on above: Take 5 mg by mouth o nce daily. fludrocortisone acetate 0.1 mg oral tablet (20 sources) Start: 01-04-2024 End: 01-14-2025 Start: 01-04-2024 End: 03-28-2024 take 1 tablet by mouth three times weekly Fludrocortisone 0.1 mg tablet Discontinued 0.1 mg PO 3 TIMES A WEEK 14 January 04, 2024 12:00am March 28, 2024 6:25pm folic acid 1 mg oral tablet (15 sources) Start: 06-15-2024 Handicap Paccard (17 sources) [...] on above: Take 1 capsule by mo [facility] once daily. Left AFO (7 sources) Start: 01-04-2024 Left AFO Active 0 .Route .MEDSUPPLY 1 January 04, 2024 12:00am Left foot drop [...] by mouth three times daily METFORMIN HCL [id number] David Ashton MD Comment on above: Take 2 tablets by mo [facility] twice daily with meals. nitrofurantoin, macrocrystal s 25 mg / nitrofurantoin, monohydrate 75 mg oral capsule (3 sources) Nitrofuran Antibacterial Start: 01-08-2025 insulin isophane, human 70 unt/ml / insulin, [...] in the pm INSULIN ISOPHANE & REGULAR [id number] David Ashton MD Start: 05-29-2014 take 35 [IU] by subc utaneous injection in the morning, then take 25 [IU] by subcutaneous injection in the evening NOVOLIN 70/30 (70-30) 100 UNIT/ML SUSP 35 units sq in the am and 25 units sq in the pm INSULIN ISOPHANE & REGULAR [id number] David Ashton MD Comment on above: 48 [...] days, then 1 for 3 days. PREDNISONE [id number] Lela Sherman CNP Comment on above: Take [...] daily. vitamin b12 1 mg oral tablet (20 sources) Vitamin B12 Start: 06-15-2024 Start: 01-18-2021 End: 01-18-2021 inject 1000 ug by intramuscular injection once cyanocobalamin (vitamin B-12) 1,000 mcg/mL injection solution Discontinued 1000 MCG IM ONCE 1 January 18, 2021 2:57pm January 18, 2021 3:07pm zinc acetate 50 mg oral caps ule (15 sources) Start: 06-15-2024 (20 sources) Start: 06-15-2024 [...] End: 09-27-2024 amoxicillin 500 mg oral capsule (16 sources) Penicillin-class Antibacterial Start: 01-23-2023 End: 02-02-2023 [...] One tablet by mouth daily ATORVASTATIN CALCIUM [id number] Ania Perez Fatimah RN Start: 10-28-2010 take 1 tablet by britt th once daily LIPITOR 10 MG TABS One tablet by mouth daily ATORVASTATIN CALCIUM [id number] Paula Bazzi azithromycin 500 mg oral tab let (20 sources) Macrolide Antimicrobial Start: 12-10-2024 End: 12-30-2024 Start: 11-25-2024 End: 12-09-2024 Start: 12-07-2016 End: 01-20-2017 AZITHROMYCIN 250 MG TABS 2 t ablets by mouth today and then 1 tablet daily for the next 4 days AZITHROMYCIN [id number] Audelia Espinoza PA-C benzonatate 100 mg oral caps ule (16 sources) Non-narcotic Antitussive Start: 08-10-2023 End: 12-19-2023 [...] Take 2 puffs twice daily BUDESONIDE-FORMOTEROL FUMARATE [id number] Americo Nazario DO cefuroxime 500 mg oral tablet (20 sources) Cephalosporin Antibacterial Start: 12-10-2024 End: 12-20-2024 [...] tsp q12h as needed HYDROCOD POLST-CHLORPHEN POLST [id number] Audelia Espinoza PA-C GLUCOSAMINE-CHONDROITI N CAPS (4 sources) Start: 02-25-2011 take 2 tablets by mouth once daily GLUCOSAMINE-CHONDROI TIN CAPS Two tablets by mouth daily GLUCOSAMINE-CHONDROI TIN CAPS [id number] Paula Bazzi Start: 02-25-2011 End: 06-23-2011 take 2 tablets by mouth once daily GLUCOSAMINE-CHONDROITIN CAPS Two tablets by mouth daily GLUCOSAMINE-CHONDROITIN CAPS [id number] Estrella August RN citalopram 10 mg oral [...] cyclobenzaprine hydrochlorid e 5 mg oral tablet (15 sources) Muscle Relaxant Start: 05-20-2024 End: 06-24-2024 dapagliflozin 5 mg oral tabl et (20 sources) Sodium-Glucose Cotransporter 2 Inhibitor Start: 04-12-2021 End: 05-04-2021 dextromethorphan hydrobromid e 2 mg/ml / guaiFENesin 40 mg/ml oral suspension (16 sources) Uncompetitive H-oylloz-E-aspartate Receptor Antagonist, Sigma-1 Agonist Start: 08-10-2023 End: [...] docusate sodium 50 mg / elizabeth osides, alf 8.6 mg oral tablet (20 sources) Start: [...] CAPS One tablet by mouth daily DUTASTERIDE [id number] David Ashton MD 60 actuat fluticasone propionate 0.23 mg/actuat / salmeterol 0.021 mg/actuat metered dose inhaler (16 sources) Corticosteroid, beta2-Adrenergic Agonist Start: 02-08-2016 End: 02-08-2016 ADVAIR DISKUS 250-50 MCG/DOSE AEPB Take 2 puffs every 12 hours FLUTICASONE-SALMET FALGUNI [id number] Americo Nazario DO Start: 02-08-2016 End: 03-21-2016 ADVAIR HFA 230-21 MCG/ACT AE RO Take 1 puff twice daily FLUTICASONE-SALMETEROL [id number] Americo Nazario DO Start: 02-08-2016 End: 02-08-2016 ADVAIR HFA 230-21 MCG/ACT AE RO 2 puffs twice daily FLUTICASONE-SALMETEROL [id number] Americo Nazario DO Start: 10-15-2015 End: 02-08-2016 ADVAIR DISKUS 100-50 MCG/DOS E AEPB Take as Directed FLUTICASONE-SALMETEROL [id number] Americo Nazario DO furosemide 40 mg oral tablet (20 sources) Loop Diuretic Start: 08-31-2015 End: 12-23-2024 Start: 08-31-2015 FUROSEMIDE 40 MG TABS One tablet by mouth twice daily X 3 days then once daily FUROSEMIDE [id number] Estrella August RN Start: 08-06-2015 End: 08-27-2015 take 1 tablet by mouth once daily LASIX 40 MG TABS One tablet by mouth daily FUROSEMIDE [id number] Audelia Espinoza PA-C Start: 02-25-2011 End: 06-21-2012 take 1 tablet by mouth once daily LASIX 40 MG TABS One tablet by mouth daily FUROSEMIDE [id number] David Ashton MD Comment on above: Take 40 mg by mouth once daily. glimepiride 2 mg oral tablet (2 sources) Sulfonylurea Start: 06-25-19 14 take 1 tablet by mouth twice daily GLIMEPIRIDE 2 MG TABS One tablet by mouth twice daily GLIMEPIRIDE [id number] David Ashton MD glipiZIDE 5 mg oral tablet (4 sources) Sulfonylurea Start: 06-25-19 14 End: 06-16-20 15 take 1 tablet by mouth once daily GLIPIZIDE 5 MG TABS One tablet by mouth daily GLIPIZIDE [id number] Audelia Espinoza PA-C Handi cap Placard (20 sources) Start: 10-15-19 21 Handi cap Placard Active 0 .Route .MEDSUPPLY 1 0 October 14, 2020 2:29pm Cardiomyopathy Cardiomyopathy, unspecified difficulty walking short distance. expires in 5 years Start: 10-14-2020 Handi cap Plac sigrid Active [...] PLACA RD Lifetime duration DX: CAD HANDICAP PLACARD Audelia Espinoza PA-C insulin detemir 100 unt/ml injectable solution (2 sources) Insulin Analogue Start: 05-29-2014 LEVEMIR 100 UNIT/ML SOLN Take as directed INSULIN DETEMIR [id number] David Ashton MD insulin glargine 100 unt/ml injectable solution (4 sources) Insulin Analogue Start: 10-28-2010 End: 06-21-2012 take 30 [IU] by subcutaneous injection at bedtime LANTUS 100 UNIT/ML SOLN 30 units SQ at bedtime INSULIN GLARGINE [id number] Paula Bazzi 3 ml insulin lispro 100 [...] SQ per sliding scale INSULIN LISPRO (HUMAN) [id number] Paula Bazzi INSULIN GLULISINE SOLN (6 sources) Insulin Analogue Start: 06-21-2012 APIDRA SOLN P er sliding scale twice daily if blood glucose is greater than 140 INSULIN GLULISINE SOLN [id number] David Ashton MD Start: 06-21-2012 End: 06-25-2013 APIDRA SOLN Per sliding scal e twice daily if blood glucose is greater than 140 INSULIN GLULISINE SOLN [id number] David Ashton MD Start: 02-25-2011 APIDRA SOLN Pe r sliding scale INSULIN GLULISINE SOLN [id number] Paula Bazzi 24 hr isosorbide mononitrate 30 mg extended release oral tablet (20 sources) Nitrate Vasodilator Start: 04-19-2018 End: 04-01-2024 Comment on above: Take 1 tablet by britt th once daily. lisinopril 10 mg oral tablet (6 sources) Angiotensin Converting Enzyme Inhibitor Start: 05-29-2014 End: 02-23-2017 take 1 tablet by mouth once daily LISINOPRIL 10 MG TABS One tablet by mouth daily LISINOPRIL [id number] David Ashton MD loratadine 10 mg oral [...] One tablet by mouth daily LOSARTAN POTASSIUM [id number] David Ashton MD Comment on above: Take [...] by mouth three times daily MAGNESIUM OXIDE [id number] David Ashton MD melatonin 10 mg sublingual [...] tablet by mouth daily HOLD METOPROLOL TARTRATE [id number] David Ashton MD Start: 07-02-2015 take 0.5 tablet by m out twice daily METOPROLOL TARTRATE 25 MG TABS 1/2 tablet by mouth twice daily METOPROLOL TARTRATE [id number] Estrella August RN naproxen 500 mg oral tablet (20 sources) Nonsteroidal Anti-inflammatory Drug Start: 04-19-2018 End: 06-13-2018 Start: 03-11-2016 End: 09-06-2017 Start: 03-11-2016 End: 09-06-2017 take 440 mg by mouth twice daily Naproxen Sodium Discontinued 440 MG PO TWICE A DAY March 11, 2016 12:00am September 06, 2017 1:34pm Start: 06-25-2013 take 2 tablets by mo [facility] once daily ALEVE 220 MG TABS Two tablets by mouth daily NAPROXEN SODIUM [id number] David Ashton MD Start: 06-21-2012 take 1 tablet by britt twice daily NAPROSYN 500 MG TABS One tablet by mouth twice daily NAPROXEN [id number] David Ashton MD Start: 10-28-2010 ALEVE 220 MG T ABS PRN NAPROXEN SODIUM [id number] David Ashton MD oxyCODONE hydrochloride 5 mg [...] tablet by mouth daily as needed POTASSIUM [id number] David Ashton MD Start: 02-25-2011 End: 06-21-2012 take 2 tablets by mouth once daily POTASSIUM 99 MG TABS Two tablets by mouth daily POTASSIUM [id number] Paula Libia LopezBazzi pravastatin sodium 20 mg ora l tablet [...] 2020 12:00am February 19, 2020 9:27pm sennosides, alf 8.6 mg oral tablet (20 sources) Start: [...] 1 tablet by britt th once daily. traMADol hydrochloride 50 mg oral [...] TABS One tablet by mouth daily VALSARTAN [id number] Paula Bazzi vitamin d 1000 unt oral tablet (4 sources) Start: 10-28-2010 take 1 tablet by mouth twice daily VITAMIN D 1000 UNIT TABS One tablet by mouth twice daily CHOLECALCIFEROL [id number] Paula Bazzi Start: 10-28-2010 take 5 tablets by mouth once V ITAMIN D 1000 UNIT TABS 5000 IU One tablet by mouth daily CHOLECALCIFEROL [id number] David Ashton MD Problems Active Problems Problem Classification Problem Date Documented Date Episodic/Chronic Abdominal pain (20 sources) Right flank pain; Translations: [Unspecified abdominal pain] Onset: 08-03-2006 Resolved: 12-22-2014 05-09-2017 Episodic Acquired foot deformities (18 sources) Foot-drop; Translations: [Foot drop, left foot] 01-04-2024 Episodic Acute and unspecified renal failure (16 sources) Mnxss-ig-clvmaot renal failure; Translations: [Acute kidney failure, unspecified] 06-15-2024 Episodic Acute bronchitis (17 sources) Acute bronchitis; Translations: [Acute bronchitis, unspecified] [...] Complications of surgical procedures or medical care (19 sources) Insulin lipohypertrophy; Translations: [Other complications following infusion, transfusion and therapeutic injection, initial encounter] 04-21-2022 Episodic Conduction disorders (20 sources) Right bundle branch block AND left anterior fascicular block; Translations: [Bifascicular block] Onset: 06-17-2024 Chronic Coronary atherosclerosis and other heart disease (20 sources) Coronary arteriosclerosis; Translations: [Atherosclerotic heart disease of [place] coronary artery without angina pectoris] Onset: 10-28-2010 [...] anemia, unspecified] Episodic Deficiency and other anemia (15 sources) Chronic anemia; Translations: [Anemia, unspecified] 12-27-2023 [...] Fall; Translations: [Unspecified fall, initial encounter] Onset: 01-07-2025 07-18-2020 Episodic Esophageal disorders (19 sources) Gastroesophageal [...] unspecified] Onset: 04-09-2008 Resolved: 11-03-2016 07-05-2013 Chronic Open wounds of head; neck; and trunk (20 sources) Laceration of right eyebrow; Translations: [Laceration without foreign body of right eyelid and periocular area, initial encounter] 02-09-2022 Episodic Osteoarthritis (7 sources) Osteoarthritis of hip; Translations: [Osteoarthritis of hip, unspecified] Onset: 02-16-2010 02-16-2010 Chronic Other aftercare (15 sources) Long-term current use of anticoagulant; Translations: [long term care administrator (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 of anticoagulants] 12-27-2023 Episodic Other aftercare (15 sources) Surgical follow-up; Translations: [Encounter for removal of sutures] 12-28-2023 Episodic Other and ill-defined cerebrovascular disease (20 sources) 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 disease; Translations: [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 disease, unspecified] 04-11-2022 Chronic Other and ill-defined cerebrovascular disease (16 sources) 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 disease, unspecified; Translations: [Unspecified cerebrovascular disease] Onset: 01-07-2025 Chronic Other circulatory disease (18 sources) Orthostatic hypotension; Translations: [Orthostatic hypotension] 08-03-2024 Episodic Other circulatory disease (15 sources) History of cerebrovascular accident; Translations: [Personal [...] leg] 02-29-2020 Episodic Other connective tissue disease (18 sources) Swelling of lower limb; Translations: [Other [...] toe(s)] 07-31-2023 Episodic Other connective tissue disease (15 sources) Pain in upper limb; Translations: [Pain in right arm] 05-20-2024 Episodic Other connective tissue disease (1 source) Pain in left toe(s); Translations: [Pain in toe of left foot] Onset: 12-13-2024 Episodic Other connective tissue disease (1 source) Pain in right toe(s); Translations: [Pain in toe of right foot] Onset: 12-13-2024 Episodic Other connective tissue disease (20 sources) Recurrent falls ; Translations: [Repeated falls] 01-06-2025 Episodic Other connective tissue disease (2 sources) Repeated falls; Translations: [Repeated falls] Onset: 01-07-2025 Episodic Other diseases of veins and lymphatics (1 source) Vascular insufficiency; Translations: [Venous insufficiency (chronic) (peripheral)] 09-06-2024 Episodic Other endocrine disorders (15 sources) Hypoglycemia; Translations: [Hypoglycemia, unspecified] 06-24-2024 Chronic Other endocrine disorders (1 source) Hypoglycemia, unspecified; Translations: [Hypoglycemia, unspecified] Onset: 06-17-2024 Chronic Other hereditary and degenerative nervous system conditions (20 sources) Impaired cognition; Translations: [Mild cognitive impairment, so stated] 04-11-2022 Chronic Other hereditary and degenerative nervous system conditions (10 sources) Mild cognitive impairment, so stated; Translations: [Mild cognitive impairment, so stated] Onset: 01-13-2025 Chronic Other hereditary and degenerative nervous system [...] [Cough] 07-22-2019 Episodic Other lower respiratory disease (4 sources) Shortness of breath; Translations: [Shortness of breath] Onset: 12-31-2024 Episodic Other lower respiratory disease (14 sources) Dyspnea at rest; Translations: [Shortness of breath] 12-30-2024 Episodic Other lower respiratory disease (1 source) Other forms of dyspnea; Translations: [Other forms of dyspnea] Onset: 01-08-2025 Episodic Other male genital disorders (7 sources) Secondary erectile dysfunction; Translations: [Male erectile dysfunction, unspecified] Onset: 03-31-2009 03-31-2009 Chronic Other nervous system disorders (20 sources) Polyneuropathy; Translations: [Polyneuropathy, unspecified] 12-17-2020 Chronic Other nervous system disorders (13 sources) Polyneuropathy, unspecified; Translations: [Unspecified hereditary and idiopathic peripheral neuropathy] Onset: 01-07-2025 Chronic Other nervous system disorders (15 sources) Carpal tunnel syndrome of right wrist; Translations: [Carpal tunnel syndrome, right upper limb] 11-20-2023 Chronic Other nervous system disorders (17 sources) Abnormal gait; Translations: [Unspecified abnormalities of gait and mobility] 10-10-2022 Episodic Other nervous system disorders (1 source) Unspecified abnormalities of gait and mobility; Translations: [Abnormality of gait] 10-10-2022 Episodic Other non-traumatic joint disorders (20 sources) Hip pain; Translations: [Pain in left hip] 07-18-2020 Episodic Other non-traumatic joint disorders (17 sources) Pain in left shoulder; Translations: [Left [...] Chronic Other nutritional; endocrine; and metabolic disorders (15 sources) Body mass index 30+ - obesity; [...] cords] 07-18-2020 Episodic Other upper respiratory disease (7 sources) Bleeding from nose; Translations: [Epistaxis] 12-31-2024 Episodic Other upper respiratory disease (1 source) Epistaxis; Translations: [Epistaxis] Onset: 01-06-2025 Episodic Other upper respiratory infections (20 sources) Upper respiratory infection; Translations: [Acute upper respiratory infection, unspecified] Onset: 12-07-2016 12-07-2016 Episodic Otitis media and related conditions (16 sources) Acute left otitis media; Translations: [Otitis media, unspecified, left ear] 01-23-2023 Episodic Parkinson`s disease (20 sources) Parkinson's disease; Translations: [Parkinson's disease] Onset: 07-30-2019 Chronic Parkinson`s disease (2 sources) Parkinson`s disease; Translations: [Parkinson's disease without dyskinesia, without mention of fluctuations] Onset: 01-07-2025 [place]-; endo-; and myocarditis; cardiomyopathy (20 sources) 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; Translations: [Cardiomyopathy] Onset: 10-28-2010 10-28-2010 Chronic Pneumonia (except that caused by tuberculosis or sexually transmitted disease) (20 sources) Pneumonia; Translations: [Pneumonia, unspecified organism] Onset: 01-07-2025 12-09-2024 Episodic Residual codes; unclassified (20 sources) [...] disc degeneration, unspecified cervical region] 04-14-2021 Chronic Superficial injury; contusion (19 sources) Contusion of face; Translations: [Contusion of other part of head, initial encounter] Onset: 01-07-2025 12-31-2024 Episodic Thyroid disorders (20 sources) Hypothyroidism; Translations: [Hypothyroidism, unspecified] Onset: 08-21-2010 08-21-2010 Chronic Transient cerebral ischemia (16 sources) Transient cerebral ischemia; Translations: [Transient cerebral [...] (2 sources) Long-term drug therapy; Translations: [Other long term care administrator (current) drug therapy] Onset: 10-28-2010 10-28-2010 Unclassified (20 sources) Age AND/OR growth finding; Translations: [65 years of age or older] 03-16-2021 Unclassified (1 source) Obesity, class 2; 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, class 2] Onset: 12-31-2024 Unclassified (1 source) Parkinsonism, unspecified; Translations: [Parkinsonism, unspecified] Onset: 06-06-2024 Urinary tract infections (20 sources) Urinary tract infectious disease; Translations: [Urinary tract infection, site not specified] Onset: 01-13-2025 11-20-2024 Episodic Viral infection (20 sources) Disease [...] bleeding] Onset: 09-27-2006 Resolved: 12-22-2014 12-22-2014 Episodic Nutritional deficiencies (20 sources) Cobalamin deficiency; Translations: [Deficiency of other specified B group vitamins] Onset: 06-17-2024 Episodic Other aftercare (1 source) senior living (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 of insulin; Translations: [long term care administrator (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 of insulin] Onset: 06-17-2024 Episodic [...] Onset: 10-09-2013 10-10-2022 Episodic Sprains and strains (5 sources) Lumbar sprain; Translations: [Sprain of ligaments of lumbar spine, initial encounter] Onset: 09-01-2011 Resolved: 10-27-2011 10-27-2011 Episodic Syncope (18 sources) Vasovagal syncope; Translations: [Syncope and collapse] Onset: 06-17-2024 06-24-2024 Episodic Unclassified (4 sources) Family history of ischemic heart disease and other diseases of the circulatory system; Translations: [Family history of ischemic heart disease and other diseases of the circulatory system] Resolved: 08-06-2015 12-04-2014 Episodic Results Test Name Value Interpretation Reference Range Facility Inital Evaluation (1) - PTon 01-14-2025 Inital Evaluation (1) - PT Normal [facility] Neurology Visit Reporton Neurology Visit Report Normal [facility] OT General Evaluationon 12-18 OT General Evaluation Normal [facility] Cardiology Visit Reporton Cardiology Visit Report Normal [facility] Urine Cultureon 01-09-2025 [facility] Mixed Gram Pos Gram Neg Org Helen Count 50,000-80,000 MIXC Mixed contaminants. Submit a new specimen if indicated. Normal [facility] Comment on above: Performed By: #### M 100.2200 ####[facility] [address] [place], [place], [address] Absolute lymphocyte countOrd ered By: Dia Ovalle on 01-08-2025 Lymphocytes Auto (Unsp spec) [#/Vol] 0.92 10*3/uL 0.83-4.51 [facility] Anion gap in Serum or Plasma Ordered By: Dia Ovalle on 01-08-2025 Anion gap [Moles/Vol] 12 mmol/L 5-15 [facility] Automated lymphocyte count a s percentage of total leukocytesOrdered By: Dia Ovalle on 01-08-2025 Lymphocytes/100 WBC Auto (Unsp spec) 17.8 % Low 19-41 [facility] BUN/creatinine ratioOrdered By: Dia Ovalle on 01-08-2025 Urea nitrogen/Creatinine [Mass ratio] 12.2 mg/mg 10-20 [facility] Basic Metabolic Profile (BMP )on 01-08-2025 BUN/CRE 12.2 RATIO Normal - [facility] Comment on above: Performed By: #### L 500.2500, L100.0100 ####[facility] [address] [place], [place], [address] Calcium [Mass/Vol] 9.2 mg/dL Normal 7.6-11.0 [facility] Comment on above: Performed By: #### L 500.2500, L100.0100 ####[facility] [address] [place], [address] Chloride [Moles/Vol] 104 mmol/L Normal 98-108 [facility] Comment on above: Performed By: #### L 500.2500, L100.0100 ####[facility] [address] [place], [address] CO2 [Moles/Vol] 24.5 mmol/L Normal 21.0-32.0 [facility] Comment on above: Performed By: #### L 500.2500, L100.0100 ####[facility] [address] [place], [address] Creatinine [Mass/Vol] 1.44 mg/dL High 0.70-1.20 [facility] Comment on above: Performed By: #### L 500.2500, L100.0100 ####[facility] [address] [place], [address] ECRCL 38.65 ml/min Low 50-250 [facility] Comment on above: Performed By: #### L 500.2500, L100.0100 ####[facility] [address] [place], [address] GAP 12 Normal 5-15 [facility] Comment on above: Performed By: #### L 500.2500, L100.0100 ####[facility] [address] [place], [address] GFR/1.73 sq M.predicted among non-blacks MDRD (S/P/Bld) [Vol rate/Area] 47 mL/min/{1.73_m2} Low >60 [facility] Comment on above: Result Comment: mL/m in/1.73m2 CKD-EPI Creatinine Equation (2020) Performed By: #### L 500.2500, L100.0100 ####[facility] [address] [place], [address] Glucose [Mass/Vol] 108 mg/dL High 70-99 [facility] Comment on above: Performed By: #### L 500.2500, L100.0100 ####[facility] [address] [place], [address] Potassium [Moles/Vol] 3.7 mmol/L Normal 3.3-5.1 [facility] Comment on above: Performed By: #### L 500.2500, L100.0100 ####[facility] [address] [place], [address] Sodium [Moles/Vol] 140 mmol/L Normal 133-145 [facility] Comment on above: Performed By: #### L 500.2500, L100.0100 ####[facility] [address] [place], [address] Urea nitrogen [Mass/Vol] 18 mg/dL Normal 4-19 [facility] Comment on above: Performed By: #### L 500.2500, L100.0100 ####[facility] [address] [place], [address] Basophil percentageOrdered B y: Dia Ovalle on 01-08-2025 Basophils/100 WBC (Bld) 0.8 % 0-1 [facility] CBC W/Diff, Automatedon 12-18 Absolute Lymph 0.92 X10 3/uL Normal 0.83-4.51 [facility] Comment on above: Performed By: #### L 500.2500, L100.0100 ####[facility] [address] [place], [address] Absolute Neut 3.5 X10 3/uL Normal 2.0-7.7 [facility] Comment on above: Performed By: #### L 500.2500, L100.0100 ####[facility] [address] [place], [address] Basophils/100 WBC (Bld) 0.8 % Normal 0-1 [facility] Comment on above: Performed By: #### L 500.2500, L100.0100 ####[facility] [address] [place], [address] Eosinophils/100 WBC (Bld) 3.9 % Normal 0-5 [facility] Comment on above: Performed By: #### L 500.2500, L100.0100 ####[facility] [address] [place], [address] Erythrocyte distribution width (RBC) [Ratio] 13.8 % Normal 11.6-14.6 [facility] Comment on above: Performed By: #### L 500.2500, L100.0100 ####[facility] [address] [place], [address] Hematocrit (Bld) [Volume fraction] 39.2 % Low 40-54 [facility] Comment on above: Performed By: #### L 500.2500, L100.0100 ####[facility] [address] [place], [address] Hemoglobin (Bld) [Mass/Vol] 13.6 g/dL Normal 13.0-16.5 [facility] Comment on above: Performed By: #### L 500.2500, L100.0100 ####[facility] [address] [place], [address] IG% 0.600 Normal 0.0-0.9 [facility] Comment on above: Result Comment: IG% - Immature Granulocytes (promyelocytes, myelocytes andmetamyelocytes) > 1% indicates that a LEFT SHIFT is Present. Performed By: #### L 500.2500, L100.0100 ####[facility] [address] [place], [address] Lymphocytes/100 WBC (Bld) 17.8 % Low 19-41 [facility] Comment on above: Performed By: #### L 500.2500, L100.0100 ####[facility] [address] [place], [address] MCH (RBC) [Entitic mass] 33.3 pg High 27.0-32.0 [facility] Comment on above: Performed By: #### L 500.2500, L100.0100 ####[facility] [address] [place], [address] MCHC (RBC) [Mass/Vol] 34.7 g/dL Normal 32-36 [facility] Comment on above: Performed By: #### L 500.2500, L100.0100 ####[facility] [address] [place], [address] MCV (RBC) [Entitic vol] 96.1 fL High 80-94 [facility] Comment on above: Performed By: #### L 500.2500, L100.0100 ####[facility] [address] [place], [address] Monocytes/100 WBC (Bld) 10.3 % High 0-10 [facility] Comment on above: Performed By: #### L 500.2500, L100.0100 ####[facility] [address] [place], [address] Neutrophils/100 WBC (Bld) 66.6 % Normal 47-70 [facility] Comment on above: Performed By: #### L 500.2500, L100.0100 ####[facility] [address] [place], [address] Nucleated RBC (Bld) [#/Vol] 0 10*3/uL Normal 0-5 [facility] Comment on above: Performed By: #### L 500.2500, L100.0100 ####[facility] [address] [place], [address] Platelet mean volume (Bld) [Entitic vol] 8.8 fL Normal 6.2-12.0 [facility] Comment on above: Performed By: #### L 500.2500, L100.0100 ####[facility] [address] [place], [address] Platelets (Bld) [#/Vol] 207 10*3/uL Normal 150-450 [facility] Comment on above: Performed By: #### L 500.2500, L100.0100 ####[facility] [address] [place], [address] RBC (Bld) [#/Vol] 4.08 10*6/uL Low 4.6-6.2 [facility] Comment on above: Performed By: #### L 500.2500, L100.0100 ####[facility] [address] [place], [address] RDW SD 48.9 fl High 35.1-43.9 [facility] Comment on above: Performed By: #### L 500.2500, L100.0100 ####[facility] [address] [place], [address] WBC (Bld) [#/Vol] 5.2 10*3/uL Normal 4.4-11.0 [facility] Comment on above: Performed By: #### L 500.2500, L100.0100 ####[facility] [address] [place], [address] Carbon dioxide, total [Moles /volume] in Central venous bloodOrdered By: Dia Ovalle on 01-08-2025 CO2 [Moles/Vol] 24.5 mmol/L 21.0-32.0 [facility] Chloride assayOrdered By: Priya Ovalle on 01-08-2025 Chloride [Moles/Vol] 104 mmol/L 98-108 [facility] Discharge Instructionon 12-18 Discharge Instruction Normal [facility] Eosinophil percentageOrdered By: Dia Ovalle on 01-08-2025 Eosinophils/100 WBC (Bld) 3.9 % 0-5 [facility] Erythrocyte distribution wid th ratioOrdered By: Dia Ovalle on 01-08-2025 Erythrocyte distribution width (RBC) [Ratio] 13.8 % 11.6-14.6 [facility] Erythrocyte distribution wid th standard deviationOrdered By: Dia Ovalle on 01-08-2025 Erythrocyte distribution width (RBC) [Ratio] 48.9 fl High 35.1-43.9 [facility] Glomerular filtration rate ( GFR) estimation/1.73 sq m using serum, plasma, or whole bOrdered By: Dia Ovalle on 01-08-2025 GFR/1.73 sq M.predicted among non-blacks MDRD (S/P/Bld) [Vol rate/Area] 47 mL/min/{1.73_m2} Low >60 [facility] Hematocrit Auto (Bld) [Volum e fraction]Ordered By: Dia Ovalle 01-08-2025 Hematocrit (Bld) [Volume fraction] 39.2 % Low 40-54 [facility] Hemoglobin measurementOrdere d By: Dia Ovalle 01-08-2025 Hemoglobin (Bld) [Mass/Vol] 13.6 g/dL 13.0-16.5 [facility] Immature granulocytes/100 WB C Auto (Bld)Ordered By: Dia Ovalle 01-08-2025 Immature granulocytes/100 WBC (Bld) 0.600 % 0.0-0.9 [facility] MCV (mean corpuscular volume ) determinationOrdered By: Dia Ovalle 01-08-2025 MCV (RBC) [Entitic vol] 96.1 fL High 80-94 [facility] Mean corpuscular hemoglobin (MCH) determinationOrdered By: Dia Ovalle 01-08-2025 MCH (RBC) [Entitic mass] 33.3 pg High 27.0-32.0 [facility] Monocyte percentageOrdered B y: Dia Ovalle 01-08-2025 Monocytes/100 WBC (Bld) 10.3 % High 0-10 [facility] Neutrophil percentageOrdered By: Dia Ovalle 01-08-2025 Neutrophils/100 WBC (Bld) 66.6 % 47-70 [facility] Platelet countOrdered By: Priya priya Yamile on 01-08-2025 Platelets (Bld) [#/Vol] 207 10*3/uL 150-450 [facility] Potassium measurement (mass/ volume)Ordered By: Dia Ovalle on 01-08-2025 Potassium (Unsp spec) [Mass/Vol] 3.7 mmol/L 3.3-5.1 [facility] RBC Auto (Bld) [#/Vol]Ordere d By: Dia Ovalle on 01-08-2025 RBC (Bld) [#/Vol] 4.08 10*6/uL Low 4.6-6.2 [facility] Serum creatinine measurement (mass/volume)Ordered By: Dia Ovalle on 01-08-2025 Creatinine [Mass/Vol] 1.44 mg/dL High 0.70-1.20 [facility] Serum glucose measurement (m ass/volume)Ordered By: Dia Ovalle on 01-08-2025 Glucose [Mass/Vol] 108 mg/dL High 70-99 [facility] Serum or plasma calcium odilon urement (mass/volume)Ordered By: Dia Ovalle on 01-08-2025 Calcium [Mass/Vol] 9.2 mg/dL 7.6-11.0 [facility] Serum or plasma urea nitroge n measurement (mass/volume)Ordered By: Dia Ovalle on 01-08-2025 Urea nitrogen [Mass/Vol] 18 mg/dL 4-19 [facility] Sodium levelOrdered By: Dia Ovalle on 01-08-2025 Sodium [Moles/Vol] 140 mmol/L 133-145 [facility] White blood cell (WBC) count Ordered By: Dia Ovalle on 01-08-2025 WBC (Bld) [#/Vol] 5.2 10*3/uL 4.4-11.0 [facility] 12 Lead EKGon 01-07-2025 12 Lead EKG Normal [facility] Absolute lymphocyte countOrd ered By: Derick Sorenson on 01-07-2025 Lymphocytes Auto (Unsp spec) [#/Vol] 0.70 10*3/uL Low 0.83-4.51 [facility] Activated partial thrombopla stin time (aPTT) in platelet poor plasma by coagulation aOrdered By: Derick Sorenson on 01-07-2025 aPTT Coag (PPP) [Time] 29.1 s 24.1-36.2 [facility] Anion gap in Serum or Plasma Ordered By: Derick Sorenson on 01-07-2025 Anion gap [Moles/Vol] 14 mmol/L 5-15 [facility] Automated lymphocyte count a s percentage of total leukocytesOrdered By: Derick Sorenson on 01-07-2025 Lymphocytes/100 WBC Auto (Unsp spec) 10.0 % Low 19- [facility] BUN/creatinine ratioOrdered By: Derick Sorenson on 01-07-2025 Urea nitrogen/Creatinine [Mass ratio] 13.3 mg/mg - [facility] Basic Metabolic Profile (BMP )on 01-07-2025 BUN/CRE 13.1 RATIO Normal - [facility] Comment on above: Performed By: #### L 100.0100, L500.2500 ####[facility] [address] [place], [address] Calcium [Mass/Vol] 9.4 mg/dL Normal 7.6-11.0 [facility] Comment on above: Performed By: #### L 100.0100, L500.2500 ####[facility] [address] [place], [address] Chloride [Moles/Vol] 101 mmol/L Normal 98-108 [facility] Comment on above: Performed By: #### L 100.0100, L500.2500 ####[facility] [address] [place], [address] CO2 [Moles/Vol] 25.0 mmol/L Normal 21.0-32.0 [facility] Comment on above: Performed By: #### L 100.0100, L500.2500 ####[facility] [address] [place], [address] Creatinine [Mass/Vol] 1.57 mg/dL High 0.70-1.20 [facility] Comment on above: Performed By: #### L 100.0100, L500.2500 ####[facility] [address] [place], [address] ECRCL 35.45 ml/min Low 50-250 [facility] Comment on above: Performed By: #### L 100.0100, L500.2500 ####[facility] [address] [place], [address] GAP 12 Normal 5-15 [facility] Comment on above: Performed By: #### L 100.0100, L500.2500 ####[facility] [address] [place], [address] GFR/1.73 sq M.predicted among non-blacks MDRD (S/P/Bld) [Vol rate/Area] 42 mL/min/{1.73_m2} Low >60 [facility] Comment on above: Result Comment: mL/m in/1.73m2 CKD-EPI Creatinine Equation (2020) Performed By: #### L 100.0100, L500.2500 ####[facility] [address] [place], [address] Glucose [Mass/Vol] 121 mg/dL High 70-99 [facility] Comment on above: Performed By: #### L 100.0100, L500.2500 ####[facility] [address] [place], [address] Potassium [Moles/Vol] 4.3 mmol/L Normal 3.3-5.1 [facility] Comment on above: Performed By: #### L 100.0100, L500.2500 ####[facility] [address] [place], [address] Sodium [Moles/Vol] 138 mmol/L Normal 133-145 [facility] Comment on above: Performed By: #### L 100.0100, L500.2500 ####[facility] [address] [place], [address] Urea nitrogen [Mass/Vol] 21 mg/dL High 4-19 [facility] Comment on above: Performed By: #### L 100.0100, L500.2500 ####[facility] [address] [place], [address] Basophil percentageOrdered B y: Derick Sorenson on 01-07-2025 Basophils/100 WBC (Bld) 0.6 % 0-1 [facility] Bedside Glucoseon 01-07-2025 FINGERSTICK GLU 159 mg/dL High 74-106 [facility] Comment on above: Result Comment: NAGI GEMENT OF PATIENT CARE PER NURSING PROTOCOL Performed By: #### L 501.080 ####[facility] [address] [place], [address] FINGERSTICK GLU 142 mg/dL High 74-106 [facility] Comment on above: Result Comment: NAGI GEMENT OF PATIENT CARE PER NURSING PROTOCOL Performed By: #### L 501.080 ####[facility] [address] [place], [address] FINGERSTICK GLU 129 mg/dL High 74-106 [facility] Comment on above: Result Comment: NAGI GEMENT OF PATIENT CARE PER NURSING PROTOCOL Performed By: #### L 501.080 ####[facility] [address] [place], [address] Bilirubin Test strip Ql (U)O rdered By: Derick Sorenson on 01-07-2025 Bilirubin Ql (U) Negative Negative [facility] Bilirubin, totalOrdered By: Derick Sorenson on 01-07-2025 Bilirubin [Mass/Vol] 0.55 mg/dL 0.00-1.30 [facility] Brain/Head without Contrasto n 01-07-2025 Brain/Head without Contrast Normal [facility] CBC W/Diff, Automatedon 12-18 Absolute Lymph 1.02 X10 3/uL Normal 0.83-4.51 [facility] Comment on above: Performed By: #### L 100.0100, L500.2500 ####[facility] [address] [place], [address] Absolute Neut 5.6 X10 3/uL Normal 2.0-7.7 [facility] Comment on above: Performed By: #### L 100.0100, L500.2500 ####[facility] [address] [place], [address] Basophils/100 WBC (Bld) 0.7 % Normal 0-1 [facility] Comment on above: Performed By: #### L 100.0100, L500.2500 ####[facility] [address] [place], [address] Eosinophils/100 WBC (Bld) 1.6 % Normal 0-5 [facility] Comment on above: Performed By: #### L 100.0100, L500.2500 ####[facility] [address] [place], [address] Erythrocyte distribution width (RBC) [Ratio] 13.8 % Normal 11.6-14.6 [facility] Comment on above: Performed By: #### L 100.0100, L500.2500 ####[facility] [address] [place], [address] Hematocrit (Bld) [Volume fraction] 37.4 % Low 40-54 [facility] Comment on above: Performed By: #### L 100.0100, L500.2500 ####[facility] [address] [place], [address] Hemoglobin (Bld) [Mass/Vol] 12.8 g/dL Low 13.0-16.5 [facility] Comment on above: Performed By: #### L 100.0100, L500.2500 ####[facility] [address] [place], [address] IG% 1.000 High 0.0-0.9 [facility] Comment on above: Result Comment: IG% - Immature Granulocytes (promyelocytes, myelocytes andmetamyelocytes) > 1% indicates that a LEFT SHIFT is Present. Performed By: #### L 100.0100, L500.2500 ####[facility] [address] [place], [address] Lymphocytes/100 WBC (Bld) 13.3 % Low 19-41 [facility] Comment on above: Performed By: #### L 100.0100, L500.2500 ####[facility] [address] [place], [address] MCH (RBC) [Entitic mass] 33.2 pg High 27.0-32.0 [facility] Comment on above: Performed By: #### L 100.0100, L500.2500 ####[facility] [address] [place], [address] MCHC (RBC) [Mass/Vol] 34.2 g/dL Normal 32-36 [facility] Comment on above: Performed By: #### L 100.0100, L500.2500 ####[facility] [address] [place], [address] MCV (RBC) [Entitic vol] 97.1 fL High 80-94 [facility] Comment on above: Performed By: #### L 100.0100, L500.2500 ####[facility] [address] [place], [address] Monocytes/100 WBC (Bld) 10.2 % High 0-10 [facility] Comment on above: Performed By: #### L 100.0100, L500.2500 ####[facility] [address] [place], [address] Neutrophils/100 WBC (Bld) 73.2 % High 47-70 [facility] Comment on above: Performed By: #### L 100.0100, L500.2500 ####[facility] [address] [place], [address] Nucleated RBC (Bld) [#/Vol] 0 10*3/uL Normal 0-5 [facility] Comment on above: Performed By: #### L 100.0100, L500.2500 ####[facility] [address] [place], [address] Platelet mean volume (Bld) [Entitic vol] 8.8 fL Normal 6.2-12.0 [facility] Comment on above: Performed By: #### L 100.0100, L500.2500 ####[facility] [address] [place], [address] Platelets (Bld) [#/Vol] 220 10*3/uL Normal 150-450 [facility] Comment on above: Performed By: #### L 100.0100, L500.2500 ####[facility] [address] [place], [address] RBC (Bld) [#/Vol] 3.85 10*6/uL Low 4.6-6.2 [facility] Comment on above: Performed By: #### L 100.0100, L500.2500 ####[facility] [address] [place], [address] RDW SD 48.9 fl High 35.1-43.9 [facility] Comment on above: Performed By: #### L 100.0100, L500.2500 ####[facility] [address] [place], [address] WBC (Bld) [#/Vol] 7.7 10*3/uL Normal 4.4-11.0 [facility] Comment on above: Performed By: #### L 100.0100, L500.2500 ####[facility] [address] [place], [address] Absolute Lymph 0.70 X10 3/uL Low 0.83-4.51 [facility] Comment on above: Performed By: #### L 100.0100, L501.2450, L500.4050 ####[facility] [address] [place], [address] Absolute Neut 5.5 X10 3/uL Normal 2.0-7.7 [facility] Comment on above: Performed By: #### L 100.0100, L501.2450, L500.4050 ####[facility] [address] [place], [address] Basophils/100 WBC (Bld) 0.6 % Normal 0-1 [facility] Comment on above: Performed By: #### L 100.0100, L501.2450, L500.4050 ####[facility] [address] [place], [address] Eosinophils/100 WBC (Bld) 1.4 % Normal 0-5 [facility] Comment on above: Performed By: #### L 100.0100, L501.2450, L500.4050 ####[facility] [address] [place], [address] Erythrocyte distribution width (RBC) [Ratio] 13.7 % Normal 11.6-14.6 [facility] Comment on above: Performed By: #### L 100.0100, L501.2450, L500.4050 ####[facility] [address] [place], [address] Hematocrit (Bld) [Volume fraction] 38.6 % Low 40-54 [facility] Comment on above: Performed By: #### L 100.0100, L501.2450, L500.4050 ####[facility] [address] [place], [address] Hemoglobin (Bld) [Mass/Vol] 13.0 g/dL Normal 13.0-16.5 [facility] Comment on above: Performed By: #### L 100.0100, L501.2450, L500.4050 ####[facility] [address] [place], [address] IG% 0.900 Normal 0.0-0.9 [facility] Comment on above: Result Comment: IG% - Immature Granulocytes (promyelocytes, myelocytes andmetamyelocytes) > 1% indicates that a LEFT SHIFT is Present. Performed By: #### L 100.0100, L501.2450, L500.4050 ####[facility] [address] [place], [address] Lymphocytes/100 WBC (Bld) 10.0 % Low 19-41 [facility] Comment on above: Performed By: #### L 100.0100, L501.2450, L500.4050 ####[facility] [address] [place], [address] MCH (RBC) [Entitic mass] 32.8 pg High 27.0-32.0 [facility] Comment on above: Performed By: #### L 100.0100, L501.2450, L500.4050 ####[facility] [address] [place], [address] MCHC (RBC) [Mass/Vol] 33.7 g/dL Normal 32-36 [facility] Comment on above: Performed By: #### L 100.0100, L501.2450, L500.4050 ####[facility] [address] [place], [address] MCV (RBC) [Entitic vol] 97.5 fL High 80-94 [facility] Comment on above: Performed By: #### L 100.0100, L501.2450, L500.4050 ####[facility] [address] [place], [address] Monocytes/100 WBC (Bld) 8.0 % Normal 0-10 [facility] Comment on above: Performed By: #### L 100.0100, L501.2450, L500.4050 ####[facility] [address] [place], [address] Neutrophils/100 WBC (Bld) 79.1 % High 47-70 [facility] Comment on above: Performed By: #### L 100.0100, L501.2450, L500.4050 ####[facility] [address] [place], [address] Nucleated RBC (Bld) [#/Vol] 0 10*3/uL Normal 0-5 [facility] Comment on above: Performed By: #### L 100.0100, L501.2450, L500.4050 ####[facility] [address] [place], [address] Platelet mean volume (Bld) [Entitic vol] 8.7 fL Normal 6.2-12.0 [facility] Comment on above: Performed By: #### L 100.0100, L501.2450, L500.4050 ####[facility] [address] [place], [address] Platelets (Bld) [#/Vol] 226 10*3/uL Normal 150-450 [facility] Comment on above: Performed By: #### L 100.0100, L501.2450, L500.4050 ####[facility] [address] [place], [address] RBC (Bld) [#/Vol] 3.96 10*6/uL Low 4.6-6.2 [facility] Comment on above: Performed By: #### L 100.0100, L501.2450, L500.4050 ####[facility] [address] [place], [address] RDW SD 50.0 fl High 35.1-43.9 [facility] Comment on above: Performed By: #### L 100.0100, L501.2450, L500.4050 ####[facility] [address] [place], [address] WBC (Bld) [#/Vol] 7.0 10*3/uL Normal 4.4-11.0 [facility] Comment on above: Performed By: #### L 100.0100, L501.2450, L500.4050 ####[facility] [address] [place], [address] Calcium oxalate crystals det ection in urine sediment by light microscopyOrdered By: Derick Sorenson on 01-07-2025 Calcium oxalate crystals LM Ql (Urine sed) RARE /hpf [facility] Carbon dioxide, total [Moles /volume] in Central venous bloodOrdered By: Derick Sorenson on 01-07-2025 CO2 [Moles/Vol] 26.2 mmol/L 21.0-32.0 [facility] Chest 1 View (Portable)on Chest 1 View (Portable) Normal [facility] Chloride assayOrdered By: Ottoniel Sorenson on 01-07-2025 Chloride [Moles/Vol] 95 mmol/L Low 98-108 [facility] Comprehensive Metabolic Prof ilon 01-07-2025 Albumin [Mass/Vol] 4.4 g/dL Normal 3.4-4.8 [facility] Comment on above: Performed By: #### L 100.0100, L501.2450, L500.4050 ####[facility] [address] [place], [address] Albumin/Globulin [Mass ratio] 1.9 {ratio} Normal 0.9-2.4 [facility] Comment on above: Performed By: #### L 100.0100, L501.2450, L500.4050 ####[facility] [address] [place], [address] ALK PHOS 53 U/L Normal 40-129 [facility] Comment on above: Performed By: #### L 100.0100, L501.2450, L500.4050 ####[facility] [address] [place], [address] ALT [Catalytic activity/Vol] U/L Normal <=46 [facility] Comment on above: Performed By: #### L 100.0100, L501.2450, L500.4050 ####[facility] [address] [place], [address] AST [Catalytic activity/Vol] 22 U/L Normal <=37 [facility] Comment on above: Performed By: #### L 100.0100, L501.2450, L500.4050 ####[facility] [address] [place], [address] Bilirubin [Mass/Vol] 0.55 mg/dL Normal 0.00-1.30 [facility] Comment on above: Performed By: #### L 100.0100, L501.2450, L500.4050 ####[facility] [address] [place], [address] BUN/CRE 13.3 RATIO Normal 10-20 [facility] Comment on above: Performed By: #### L 100.0100, L501.2450, L500.4050 ####[facility] [address] [place], [address] Calcium [Mass/Vol] 9.8 mg/dL Normal 7.6-11.0 [facility] Comment on above: Performed By: #### L 100.0100, L501.2450, L500.4050 ####[facility] [address] [place], [address] Chloride [Moles/Vol] 95 mmol/L Low 98-108 [facility] Comment on above: Performed By: #### L 100.0100, L501.2450, L500.4050 ####[facility] [address] [place], [address] CO2 [Moles/Vol] 26.2 mmol/L Normal 21.0-32.0 [facility] Comment on above: Performed By: #### L 100.0100, L501.2450, L500.4050 ####[facility] [address] [place], [address] Creatinine [Mass/Vol] 1.72 mg/dL High 0.70-1.20 [facility] Comment on above: Performed By: #### L 100.0100, L501.2450, L500.4050 ####[facility] [address] [place], [address] ECRCL 32.78 ml/min Low 50-250 [facility] Comment on above: Performed By: #### L 100.0100, L501.2450, L500.4050 ####[facility] [address] [place], [address] GAP 14 Normal 5-15 [facility] Comment on above: Performed By: #### L 100.0100, L501.2450, L500.4050 ####[facility] [address] [place], [address] GFR/1.73 sq M.predicted among non-blacks MDRD (S/P/Bld) [Vol rate/Area] 38 mL/min/{1.73_m2} Low >60 [facility] Comment on above: Result Comment: mL/m in/1.73m2 CKD-EPI Creatinine Equation (2020) Performed By: #### L 100.0100, L501.2450, L500.4050 ####[facility] [address] [place], [address] Globulin (S) [Mass/Vol] 2.3 g/dL Normal 2.2-4.2 [facility] Comment on above: Performed By: #### L 100.0100, L501.2450, L500.4050 ####[facility] [address] [place], [address] Glucose [Mass/Vol] 124 mg/dL High 70-99 [facility] Comment on above: Performed By: #### L 100.0100, L501.2450, L500.4050 ####[facility] [address] [place], [address] Potassium [Moles/Vol] 4.7 mmol/L Normal 3.3-5.1 [facility] Comment on above: Performed By: #### L 100.0100, L501.2450, L500.4050 ####[facility] [address] [place], [address] Sodium [Moles/Vol] 135 mmol/L Normal 133-145 [facility] Comment on above: Performed By: #### L 100.0100, L501.2450, L500.4050 ####[facility] [address] [place], [address] T PROT 6.7 g/dL Normal 5.9-8.4 [facility] Comment on above: Performed By: #### L 100.0100, L501.2450, L500.4050 ####[facility] [address] [place], [address] Urea nitrogen [Mass/Vol] 23 mg/dL High 4-19 [facility] Comment on above: Performed By: #### L 100.0100, L501.2450, L500.4050 ####[facility] [address] [place], [place], [id number] Emergency Department Summary on 01-07-2025 Emergency Department Summary Normal [facility] Eosinophil percentageOrdered By: Derick Sorenson on 01-07-2025 Eosinophils/100 WBC (Bld) 1.4 % 0-5 [facility] Erythrocyte distribution wid th ratioOrdered By: Derick Sorenson on 01-07-2025 Erythrocyte distribution width (RBC) [Ratio] 13.7 % 11.6-14.6 [facility] Erythrocyte distribution wid th standard deviationOrdered By: Derick Sorenson on 01-07-2025 Erythrocyte distribution width (RBC) [Ratio] 50.0 fl High 35.1-43.9 [facility] Free T3on 01-07-2025 Free T3 [Mass/Vol] 2.5 pg/mL Normal 2.18-3.98 [facility] Comment on above: Performed By: #### L 506.0400, L501.9520, L501.40461 ####[facility] [address] [place], [place], [address] Free E2Ufinjnp By: Derick grady on 01-07-2025 Free T3 [Mass/Vol] 2.5 pg/mL 2.18-3.98 [facility] Glomerular filtration rate ( GFR) estimation/1.73 sq m using serum, plasma, or whole bOrdered By: Derick Sorenson on 01-07-2025 GFR/1.73 sq M.predicted among non-blacks MDRD (S/P/Bld) [Vol rate/Area] 38 mL/min/{1.73_m2} Low >60 [facility] Glucose [facility] deOrdered By: Dia Ovalle on 01-07-2025 Glucose [Mass/Vol] 159 mg/dL High 74-106 [facility] Hematocrit Auto (Bld) [Volum e fraction]Ordered By: Derick Sorenson on 01-07-2025 Hematocrit (Bld) [Volume fraction] 38.6 % Low 40-54 [facility] Hemoglobin measurementOrdere d By: Derick Sorenson on 01-07-2025 Hemoglobin (Bld) [Mass/Vol] 13.0 g/dL 13.0-16.5 [facility] Immature granulocytes/100 WB C Auto (Bld)Ordered By: Derick Sorenson on 01-07-2025 Immature granulocytes/100 WBC (Bld) 0.900 % 0.0-0.9 [facility] Ketones Test strip Ql (U)Ord ered By: Derick Sorenson on 01-07-2025 Ketones Ql (U) 5 mg/dl High Negative [facility] Lipaseon 01-07-2025 Lipase [Catalytic activity/Vol] 20 U/L Normal 13-75 [facility] Comment on above: Result Comment: Plea se note:LIPASE revised reference range effective 22.New Lipase methodology. Expected to produce lower valuesthan the previous assay method.NEW Reference Range: 13 - 75 U/L Performed By: #### L 100.0100, L501.2450, L500.4050 ####[facility] [address] [place], [address] MCV (mean corpuscular volume ) determinationOrdered By: Derick Sorenson on 01-07-2025 MCV (RBC) [Entitic vol] 97.5 fL High 80-94 [facility] Mean corpuscular hemoglobin (MCH) determinationOrdered By: Derick Sorenson on 01-07-2025 MCH (RBC) [Entitic mass] 32.8 pg High 27.0-32.0 [facility] Monocyte percentageOrdered B y: Derick Sorenson on 01-07-2025 Monocytes/100 WBC (Bld) 8.0 % 0-10 [facility] Mucus LM Ql (Urine sed)Order ed By: Derick Sorenson on 01-07-2025 Mucus Ql (Urine sed) 0 SEEN /hpf [facility] Neutrophil percentageOrdered By: Derick Sorenson on 01-07-2025 Neutrophils/100 WBC (Bld) 79.1 % High 47-70 [facility] Nitrite Test strip Ql (U)Ord ered By: Derick Sorenson on 01-07-2025 Nitrite Ql (U) Negative Negative [facility] No Panel InformationOrdered By: Derick Sorenson on 01-07-2025 22 U/L <38 [facility] Partial Thromboplast Timeon 01-07-2025 aPTT Coag (Bld) [Time] 29.1 s Normal 24.1-36.2 [facility] Comment on above: Performed By: #### L 300.4310, L300.3900 ####[facility] [address] [place], [address] Platelet countOrdered By: Ottoniel Sorenson on 01-07-2025 Platelets (Bld) [#/Vol] 226 10*3/uL 150-450 [facility] Potassium measurement (mass/ volume)Ordered By: Derick Sorenson on 01-07-2025 Potassium (Unsp spec) [Mass/Vol] 4.7 mmol/L 3.3-5.1 [facility] Protein Test strip Ql (U)Ord ered By: Derick Sorenson on 01-07-2025 Protein Ql (U) 30 mg/dl High Negative [facility] Prothrombin Time w/INRon INR Coag (PPP) [Relative time] 1.1 {INR} Normal [facility] Comment on above: Performed By: #### L 300.4310, L300.3900 ####[facility] [address] [place], [address] PT Coag (PPP) [Time] 14.5 s Normal 11.7-14.9 [facility] Comment on above: Performed By: #### L 300.4310, L300.3900 ####[facility] [address] [place], [address] Prothrombin timeOrdered By: Derick Sorenson on 01-07-2025 PT Coag (PPP) [Time] 14.5 s 11.7-14.9 [facility] RBC Auto (Bld) [#/Vol]Ordere d By: Derick Sorenson on 01-07-2025 RBC (Bld) [#/Vol] 3.96 10*6/uL Low 4.6-6.2 [facility] Serum creatinine measurement (mass/volume)Ordered By: Derick Sorenson on 01-07-2025 Creatinine [Mass/Vol] 1.72 mg/dL High 0.70-1.20 [facility] Serum globulin measurementOr dered By: Derick Sorenson on 01-07-2025 Globulin (S) [Mass/Vol] 2.3 g/dL 2.2-4.2 [facility] Serum glucose measurement (m ass/volume)Ordered By: Derick Sorenson on 01-07-2025 Glucose [Mass/Vol] 124 mg/dL High 70-99 [facility] Serum or plasma alanine peña otransferase (ALT) measurementOrdered By: Derick Sorenson on 01-07-2025 ALT [Catalytic activity/Vol] U/L <47 [facility] Serum or plasma albumin odilon urement (mass/volume)Ordered By: Derick Soernson on 01-07-2025 Albumin [Mass/Vol] 4.4 g/dL 3.4-4.8 [facility] Serum or plasma albumin/glob ulin mass ratioOrdered By: Derick Sorenson on 01-07-2025 Albumin/Globulin [Mass ratio] 1.9 {ratio} 0.9-2.4 [facility] Serum or plasma alkaline dequan sphatase measurementOrdered By: Derick Sorenson on 01-07-2025 ALP [Catalytic activity/Vol] 53 U/L 40-129 [facility] Serum or plasma calcium odilon urement (mass/volume)Ordered By: Derick Sorenson on 01-07-2025 Calcium [Mass/Vol] 9.8 mg/dL 7.6-11.0 [facility] Serum or plasma urea nitroge n measurement (mass/volume)Ordered By: Derick Sorenson on 01-07-2025 Urea nitrogen [Mass/Vol] 23 mg/dL High 4-19 [facility] Sodium levelOrdered By: Laisha Sorenson on 01-07-2025 Sodium [Moles/Vol] 135 mmol/L 133-145 [facility] Spine Cervical without Contr ason 01-07-2025 Spine Cervical without Contras Normal [facility] Squamous epithelial cells de tection in urine sediment by light microscopyOrdered By: Derick Sorenson on 01-07-2025 Epithelial cells.squamous LM Ql (Urine sed) 0-5 SEEN /hpf 0-5 [facility] T4 Free Directon 01-07-2025 T4 FREE DIRECT 1.20 ng/dL Normal 0.76-1.46 [facility] Comment on above: Performed By: #### L 506.0400, L501.9520, L501.91921 ####[facility] [address] [place], [address] T4 freeOrdered By: Derick grady on 01-07-2025 Free T4 [Mass/Vol] 1.20 ng/dL 0.76-1.46 [facility] TSH DL <= 0.005 mIU/L QnOrde red By: Derick Sorenson on 01-07-2025 TSH Qn 1.110 uIU/mL 0.300-4.200 [facility] Thyroid Stim Hormone (TSH)on 01-07-2025 TSH 1.110 uIU/mL Normal 0.300-4.200 [facility] Comment on above: Performed By: #### L 506.0400, L501.9520, L501.48366 ####[facility] [address] [place], [place], [id number] Total proteinOrdered By: Tyson Sorenson on 01-07-2025 Protein [Mass/Vol] 6.7 g/dL 5.9-8.4 [facility] Transitional cells detection in urine sediment by light microscopyOrdered By: Derick Sorenson on 01-07-2025 Transitional cells LM Ql (Urine sed) 0-5 SEEN /hpf 0-5 [facility] Urinalysis, Completeon 01-07 BACTERIA 1+ /hpf Normal None Seen [facility] Comment on above: Order Comment: CLEAN CATCH Performed By: #### L 400.0001 ####[facility] [address] [place], [address] CA OX CRYSTAL RARE Normal [facility] Comment on above: Order Comment: CLEAN CATCH Performed By: #### L 400.0001 ####[facility] [address] [place], [address] EPI,SQUAMOUS 0-5 SEEN Normal 0-5 [facility] Comment on above: Order Comment: CLEAN CATCH Performed By: #### L 400.0001 ####[facility] [address] [place], [address] EPI,TRANSITION 0-5 SEEN Normal 0-5 [facility] Comment on above: Order Comment: CLEAN CATCH Performed By: #### L 400.0001 ####[facility] [address] [place], [address] WBC 10-25 SEEN Normal 0-5 [facility] Comment on above: Order Comment: CLEAN CATCH Performed By: #### L 400.0001 ####[facility] [address] [place], [address] Mucus Ql (Urine sed) 0 SEEN Normal [facility] Comment on above: Order Comment: CLEAN CATCH Performed By: #### L 400.0001 ####[facility] [address] [place], [address] RBC 0 SEEN Normal 0-5 [facility] Comment on above: Order Comment: CLEAN CATCH Performed By: #### L 400.0001 ####[facility] [address] [place], [address] Urine clarityOrdered By: Tyson Sorenson on 01-07-2025 Clarity (U) Clear Clear [facility] Urine color determinationOrd ered By: Derick Sorenson on 01-07-2025 Color (U) Yellow Yellow [facility] Urine cultureOrdered By: Tyson Sorenson on 01-07-2025 Bacteria identified Cx Nom (U) Mixed Gram Pos & Gram Neg Org Abnormal [facility] Urine glucose detectionOrder ed By: Derick Sorenson on 01-07-2025 Glucose Ql (U) Normal mg/dl Normal [facility] Urine leukocyte esterase det ection by dipstickOrdered By: Derick Sorenson on 01-07-2025 Leukocyte esterase Test strip Ql (U) 500 /ul High Negative [facility] Urine pHOrdered By: Derick irvin on 01-07-2025 pH (U) 6.0 [pH] 5.0 - 8.0 [facility] Urine sediment bacteria coun t by microscopy (number/high power field)Ordered By: Derick Sorenson on 01-07-2025 Bacteria LM.HPF (Urine sed) [#/Area] 1 /[HPF] None Seen [facility] Urine specific gravity measu rementOrdered By: Derick Sorenson on 01-07-2025 Specific gravity (U) [Rel density] 1.015 1.002-1.030 [facility] Urine urobilinogen measureme ntOrdered By: Derick Sorenson on 01-07-2025 Urobilinogen Ql (U) Normal mg/dl Normal [facility] White blood cell (WBC) count Ordered By: Derick Sorenson on 01-07-2025 WBC (Bld) [#/Vol] 7.0 10*3/uL 4.4-11.0 [facility] White blood cell countOrdere d By: Derick Sorenson on 01-07-2025 White blood cell count 10-25 SEEN /hpf 0-5 [facility] MR/BMS.Bon 01-06-2025 MR/BMS.IMB Normal [facility] Echocardiogram study reportO rdered By: Patti Steinberg on 01-03-2025 Study report [facility] Work Phone: Echo Completeon 01-02-2025 Echo Complete Normal [facility] Brain/Head without Contrasto n 12-31-2024 Brain/Head without Contrast Normal [facility] Emergency Department Summary on 12-31-2024 Emergency Department Summary Normal [facility] MR/BMS.IMBon 12-30-2024 MR/BMS.IMB Normal [facility] Cardiology Visit Reporton Cardiology Visit Report Normal [facility] Absolute lymphocyte countOrd ered By: Derick Sorenson on 12-21-2024 Lymphocytes Auto (Unsp spec) [#/Vol] 1.36 10*3/uL 0.83-4.51 [facility] Absolute neutrophil countOrd ered By: Derick Sorenson on 12-21-2024 Neutrophils (Bld) [#/Vol] 3.4 10*3/uL 2.0-7.7 [facility] Activated partial thrombopla stin time (aPTT) in platelet poor plasma by coagulation aOrdered By: Derick Sorenson on 12-21-2024 aPTT Coag (PPP) [Time] 29.7 s 24.1-36.2 [facility] Anion gap in Serum or Plasma Ordered By: Derick Sorenson on 12-21-2024 Anion gap [Moles/Vol] 14 mmol/L 5- [facility] Automated lymphocyte count a s percentage of total leukocytesOrdered By: Derick Sorenson on 12-21-2024 Lymphocytes/100 WBC Auto (Unsp spec) 24.4 % [facility] BUN/creatinine ratioOrdered By: Derick Sorenson on 12-21-2024 Urea nitrogen/Creatinine [Mass ratio] 9.8 mg/mg Low 10- [facility] Basic Metabolic Profile (BMP )on 12-21-2024 BUN/CRE 9.8 RATIO Low 10- [facility] Comment on above: Performed By: #### L 500.2500, L503.7505 ####[facility] [address] [place], [address] Calcium [Mass/Vol] 9.9 mg/dL Normal 7.6-11.0 [facility] Comment on above: Performed By: #### L 500.2500, L503.7505 ####[facility] [address] [place], [address] Chloride [Moles/Vol] 99 mmol/L Normal 98-108 [facility] Comment on above: Performed By: #### L 500.2500, L503.7505 ####[facility] [address] [place], [address] CO2 [Moles/Vol] 26.4 mmol/L Normal 21.0-32.0 [facility] Comment on above: Performed By: #### L 500.2500, L503.7505 ####[facility] [address] [place], [address] Creatinine [Mass/Vol] 1.46 mg/dL High 0.70-1.20 [facility] Comment on above: Performed By: #### L 500.2500, L503.7505 ####[facility] [address] [place], [address] ECRCL 38.29 ml/min Low 50-250 [facility] Comment on above: Performed By: #### L 500.2500, L503.7505 ####[facility] [address] [place], [address] GAP 14 Normal 5-15 [facility] Comment on above: Performed By: #### L 500.2500, L503.7505 ####[facility] [address] [place], [address] GFR/1.73 sq M.predicted among non-blacks MDRD (S/P/Bld) [Vol rate/Area] 46 mL/min/{1.73_m2} Low >60 [facility] Comment on above: Result Comment: mL/m in/1.73m2 CKD-EPI Creatinine Equation (2020) Performed By: #### L 500.2500, L503.7505 ####[facility] [address] [place], [address] Glucose [Mass/Vol] 63 mg/dL Low 70-99 [facility] Comment on above: Performed By: #### L 500.2500, L503.7505 ####[facility] [address] [place], [address] Potassium [Moles/Vol] 3.8 mmol/L Normal 3.3-5.1 [facility] Comment on above: Performed By: #### L 500.2500, L503.7505 ####[facility] [address] [place], [address] Sodium [Moles/Vol] 139 mmol/L Normal 133-145 [facility] Comment on above: Performed By: #### L 500.2500, L503.7505 ####[facility] [address] [place], [address] Urea nitrogen [Mass/Vol] 14 mg/dL Normal 4-19 [facility] Comment on above: Performed By: #### L 500.2500, L503.7505 ####[facility] [address] [place], [address] Basophil percentageOrdered B y: Derick Sorenson on 12-21-2024 Basophils/100 WBC (Bld) 0.9 % 0-1 [facility] CBC W/Diff, Automatedon Absolute Lymph 1.36 X10 3/uL Normal 0.83-4.51 [facility] Comment on above: Performed By: #### L 100.0100, L300.3900, L501.4021, L300.4310 ####[facility] [address] [place], [address] Absolute Neut 3.4 X10 3/uL Normal 2.0-7.7 [facility] Comment on above: Performed By: #### L 100.0100, L300.3900, L501.4021, L300.4310 ####[facility] [address] [place], [address] Basophils/100 WBC (Bld) 0.9 % Normal 0-1 [facility] Comment on above: Performed By: #### L 100.0100, L300.3900, L501.4021, L300.4310 ####[facility] [address] [place], [address] Eosinophils/100 WBC (Bld) 3.1 % Normal 0-5 [facility] Comment on above: Performed By: #### L 100.0100, L300.3900, L501.4021, L300.4310 ####[facility] [address] [place], [address] Erythrocyte distribution width (RBC) [Ratio] 14.1 % Normal 11.6-14.6 [facility] Comment on above: Performed By: #### L 100.0100, L300.3900, L501.4021, L300.4310 ####[facility] [address] [place], [address] Hematocrit (Bld) [Volume fraction] 40.5 % Normal 40-54 [facility] Comment on above: Performed By: #### L 100.0100, L300.3900, L501.4021, L300.4310 ####[facility] [address] [place], [address] Hemoglobin (Bld) [Mass/Vol] 13.9 g/dL Normal 13.0-16.5 [facility] Comment on above: Performed By: #### L 100.0100, L300.3900, L501.4021, L300.4310 ####[facility] [address] [place], [address] IG% 0.700 Normal 0.0-0.9 [facility] Comment on above: Result Comment: IG% - Immature Granulocytes (promyelocytes, myelocytes andmetamyelocytes) > 1% indicates that a LEFT SHIFT is Present. Performed By: #### L 100.0100, L300.3900, L501.4021, L300.4310 ####[facility] [address] [place], [address] Lymphocytes/100 WBC (Bld) 24.4 % Normal 19-41 [facility] Comment on above: Performed By: #### L 100.0100, L300.3900, L501.4021, L300.4310 ####[facility] [address] [place], [address] MCH (RBC) [Entitic mass] 33.2 pg High 27.0-32.0 [facility] Comment on above: Performed By: #### L 100.0100, L300.3900, L501.4021, L300.4310 ####[facility] [address] [place], [address] MCHC (RBC) [Mass/Vol] 34.3 g/dL Normal 32-36 [facility] Comment on above: Performed By: #### L 100.0100, L300.3900, L501.4021, L300.4310 ####[facility] [address] [place], [address] MCV (RBC) [Entitic vol] 96.7 fL High 80-94 [facility] Comment on above: Performed By: #### L 100.0100, L300.3900, L501.4021, L300.4310 ####[facility] [address] [place], [address] Monocytes/100 WBC (Bld) 10.8 % High 0-10 [facility] Comment on above: Performed By: #### L 100.0100, L300.3900, L501.4021, L300.4310 ####[facility] [address] [place], [address] Neutrophils/100 WBC (Bld) 60.1 % Normal 47-70 [facility] Comment on above: Performed By: #### L 100.0100, L300.3900, L501.4021, L300.4310 ####[facility] [address] [place], [address] Nucleated RBC (Bld) [#/Vol] 0 10*3/uL Normal 0-5 [facility] Comment on above: Performed By: #### L 100.0100, L300.3900, L501.4021, L300.4310 ####[facility] [address] [place], [address] Platelet mean volume (Bld) [Entitic vol] 9.1 fL Normal 6.2-12.0 [facility] Comment on above: Performed By: #### L 100.0100, L300.3900, L501.4021, L300.4310 ####[facility] [address] [place], [address] Platelets (Bld) [#/Vol] 211 10*3/uL Normal 150-450 [facility] Comment on above: Performed By: #### L 100.0100, L300.3900, L501.4021, L300.4310 ####[facility] [address] [place], [address] RBC (Bld) [#/Vol] 4.19 10*6/uL Low 4.6-6.2 [facility] Comment on above: Performed By: #### L 100.0100, L300.3900, L501.4021, L300.4310 ####[facility] [address] [place], [address] RDW SD 50.2 fl High 35.1-43.9 [facility] Comment on above: Performed By: #### L 100.0100, L300.3900, L501.4021, L300.4310 ####[facility] [address] [place], [address] WBC (Bld) [#/Vol] 5.6 10*3/uL Normal 4.4-11.0 [facility] Comment on above: Performed By: #### L 100.0100, L300.3900, L501.4021, L300.4310 ####[facility] [address] [place], [address] Carbon dioxide, total [Moles /volume] in Central venous bloodOrdered By: Derick Sorenson on 12-21-2024 CO2 [Moles/Vol] 26.4 mmol/L 21.0-32.0 [facility] Chest PA and Lateralon 12-21 Chest PA and Lateral Normal [facility] Chest without Contraston Chest without Contrast Normal [facility] Chloride assayOrdered By: Ottoniel Sorenson on 12-21-2024 Chloride [Moles/Vol] 99 mmol/L 98-108 [facility] Emergency Department Summary on 12-21-2024 Emergency Department Summary Normal [facility] Eosinophil percentageOrdered By: Derick Sorenson on 12-21-2024 Eosinophils/100 WBC (Bld) 3.1 % 0-5 [facility] Erythrocyte distribution wid th ratioOrdered By: Derick Sorenson on 12-21-2024 Erythrocyte distribution width (RBC) [Ratio] 14.1 % 11.6-14.6 [facility] Erythrocyte distribution wid th standard deviationOrdered By: Derick Sorenson on 12-21-2024 Erythrocyte distribution width (RBC) [Ratio] 50.2 fl High 35.1-43.9 [facility] Glomerular filtration rate ( GFR) estimation/1.73 sq m using serum, plasma, or whole bOrdered By: Derick Sorenson on 12-21-2024 GFR/1.73 sq M.predicted among non-blacks MDRD (S/P/Bld) [Vol rate/Area] 46 mL/min/{1.73_m2} Low >60 [facility] Comment on above: mL/min/1.73m2 CKD-EP I Creatinine Equation (2020) Hematocrit Auto (Bld) [Volum e fraction]Ordered By: Derick Sorenson on 12-21-2024 Hematocrit (Bld) [Volume fraction] 40.5 % 40-54 [facility] Hemoglobin measurementOrdere d By: Derick Sorenson on 12-21-2024 Hemoglobin (Bld) [Mass/Vol] 13.9 g/dL 13.0-16.5 [facility] Immature granulocytes/100 WB C Auto (Bld)Ordered By: Derick Sorenson on 12-21-2024 Immature granulocytes/100 WBC (Bld) 0.700 % 0.0-0.9 [facility] Comment on above: IG% - Immature Granu locytes (promyelocytes, myelocytes and metamyelocytes) > 1% indicates that a LEFT SHIFT is Present. International normalized rat io (INR) calculationOrdered By: Derick Sorenson on 12-21-2024 INR Coag (Bld) [Relative time] 1.1 {INR} [facility] L499.0042on 12-21-2024 Trop T High Sen 42 ng/L High <=22 [facility] Comment on above: Performed By: #### L 499.0042 ####[facility] [address] [place], [address] L499.0043on 12-21-2024 Trop T High Sen Normal <=22 [facility] Comment on above: Result Comment: Cangladys elled via OM: dr morgan Performed By: #### L 499.0043 ####[facility] [address] [place], [address] L501.4021on 12-21-2024 Trop T High Sen 44 ng/L High <=22 [facility] Comment on above: Performed By: #### L 100.0100, L300.3900, L501.4021, L300.4310 ####[facility] [address] [place], [address] L503.7505on 12-21-2024 Natriuretic peptide B (Bld) [Mass/Vol] 542 pg/mL Normal <=1800 [facility] Comment on above: Result Comment: Hear t Failure Unlikely: < 300 pg/mLHeart Failure Likely< 50 Years: > 450 pg/mL50-75 Years: > 900 pg/mL>75 Years: > 1800 pg/mL Performed By: #### L 500.2500, L503.7505 ####[facility] [address] [place], [address] MCV (mean corpuscular volume ) determinationOrdered By: Derick Sorenson on 12-21-2024 MCV (RBC) [Entitic vol] 96.7 fL High 80-94 [facility] Mean corpuscular hemoglobin (MCH) determinationOrdered By: Derick Sorenson on 12-21-2024 MCH (RBC) [Entitic mass] 33.2 pg High 27.0-32.0 [facility] Mean corpuscular hemoglobin concentration (MCHC) determinationOrdered By: Derick Sorenson on 12-21-2024 MCHC (RBC) [Mass/Vol] 34.3 g/dL 32-36 [facility] Mean platelet volume determi nationOrdered By: Derick Sorenson on 12-21-2024 Platelet mean volume (Bld) [Entitic vol] 9.1 fL 6.2-12.0 [facility] Monocyte percentageOrdered B y: Derick Sorenson on 12-21-2024 Monocytes/100 WBC (Bld) 10.8 % High 0-10 [facility] Natriuretic peptide.B prohor lam N-Terminal [Mass/volume] in Serum or PlasmaOrdered By: Derick Sorenson on 12-21-2024 Natriuretic peptide.B prohormone N-Terminal [Mass/Vol] 542 pg/mL <1800 [facility] Comment on above: Heart Failure Unlike ly: < 300 pg/mLHeart Failure Likely< 50 Years: > 450 pg/mL50-75 Years: > 900 pg/mL>75 Years: > 1800 pg/mL Neutrophil percentageOrdered By: Derick Sorenson on 12-21-2024 Neutrophils/100 WBC (Bld) 60.1 % 47-70 [facility] Nucleated red blood cell per centageOrdered By: Derick Sorenson on 12-21-2024 Nucleated RBC/100 WBC (Bld) [Ratio] 0 % 0-5 [facility] Partial Thromboplast Timeon 12-21-2024 aPTT Coag (Bld) [Time] 29.7 s Normal 24.1-36.2 [facility] Comment on above: Performed By: #### L 100.0100, L300.3900, L501.4021, L300.4310 ####[facility] [address] [place], [place], [id number] Platelet countOrdered By: Ottoniel Sorenson on 12-21-2024 Platelets (Bld) [#/Vol] 211 10*3/uL 150-450 [facility] Potassium measurement (mass/ volume)Ordered By: Derick Sorenson on 12-21-2024 Potassium (Unsp spec) [Mass/Vol] 3.8 mmol/L 3.3-5.1 [facility] Prothrombin Time w/INRon INR Coag (PPP) [Relative time] 1.1 {INR} Normal [facility] Comment on above: Performed By: #### L 100.0100, L300.3900, L501.4021, L300.4310 ####[facility] [address] [place], [place], [phone] PT Coag (PPP) [Time] 14.6 s Normal 11.7-14.9 [facility] Comment on above: Performed By: #### L 100.0100, L300.3900, L501.4021, L300.4310 ####[facility] [address] [place], [place], [id number] Prothrombin timeOrdered By: Derick Sorenson on 12-21-2024 PT Coag (PPP) [Time] 14.6 s 11.7-14.9 [facility] RBC Auto (Bld) [#/Vol]Ordere d By: Derick Sorenson on 12-21-2024 RBC (Bld) [#/Vol] 4.19 10*6/uL Low 4.6-6.2 [facility] Serum creatinine measurement (mass/volume)Ordered By: Derick Sorenson on 12-21-2024 Creatinine [Mass/Vol] 1.46 mg/dL High 0.70-1.20 [facility] Serum glucose measurement (m ass/volume)Ordered By: Derick Sorenson on 12-21-2024 Glucose [Mass/Vol] 63 mg/dL Low 70-99 [facility] Serum or plasma calcium odilon urement (mass/volume)Ordered By: Derick Sorenson on 12-21-2024 Calcium [Mass/Vol] 9.9 mg/dL 7.6-11.0 [facility] Serum or plasma urea nitroge n measurement (mass/volume)Ordered By: Derick Sorenson on 12-21-2024 Urea nitrogen [Mass/Vol] 14 mg/dL 4-19 [facility] Sodium levelOrdered By: Laisha Sroenson on 12-21-2024 Sodium [Moles/Vol] 139 mmol/L 133-145 [facility] Troponin T.cardiac [Mass/vol ume] in Serum or Plasma by High sensitivity methodOrdered By: Derick Sorenson on 12-21-2024 Troponin T.cardiac High sensitivity method [Mass/Vol] 42 ng/L High <22 [facility] Troponin T.cardiac High sensitivity method [Mass/Vol] 44 ng/L High <22 [facility] White blood cell (WBC) count Ordered By: Derick Sorenson on 12-21-2024 WBC (Bld) [#/Vol] 5.6 10*3/uL 4.4-11.0 [facility] CNOVon 12-13-2024 CNOV Office Visit (PODIWS ) OLMAN SYED ([id number]) 1935 M Date Time Provider Department 12/13/24 [...] Objective: [facility] Vasc: DP and PT pulses are [...] by mout (more content not included)... Normal [facility] Chest PA and Lateralon 12-09 Chest PA and Lateral Normal [facility] MR/BMS.IMBon 12-09-2024 MR/BMS.IMB Normal [facility] Absolute lymphocyte countOrd ered By: Keron Maciel on 11-25-2024 Lymphocytes Auto (Unsp spec) [#/Vol] 0.98 10*3/uL 0.83-4.51 [facility] Absolute neutrophil countOrd ered By: Keron Maciel on 11-25-2024 Neutrophils (Bld) [#/Vol] 4.3 10*3/uL 2.0-7.7 [facility] Anion gap in Serum or Plasma Ordered By: Keron Maciel on 11-25-2024 Anion gap [Moles/Vol] 14 mmol/L 5-15 [facility] Automated lymphocyte count a s percentage of total leukocytesOrdered By: Keron Maciel on 11-25-2024 Lymphocytes/100 WBC Auto (Unsp spec) 15.9 % Low 19-41 [facility] BUN/creatinine ratioOrdered By: Keron Maciel on 11-25-2024 Urea nitrogen/Creatinine [Mass ratio] 13.8 mg/mg 10- [facility] Basic Metabolic Profile (BMP )on 11-25-2024 BUN/CRE 13.8 RATIO Normal - [facility] Comment on above: Performed By: #### L 500.2500, L503.7505, L100.0100 ####[facility] [address] [place], [address] Calcium [Mass/Vol] 10.1 mg/dL Normal 7.6-11.0 [facility] Comment on above: Performed By: #### L 500.2500, L503.7505, L100.0100 ####[facility] [address] [place], [address] Chloride [Moles/Vol] 101 mmol/L Normal 98-108 [facility] Comment on above: Performed By: #### L 500.2500, L503.7505, L100.0100 ####[facility] [address] [place], [address] CO2 [Moles/Vol] 24.3 mmol/L Normal 21.0-32.0 [facility] Comment on above: Performed By: #### L 500.2500, L503.7505, L100.0100 ####[facility] [address] [place], [address] Creatinine [Mass/Vol] 1.60 mg/dL High 0.70-1.20 [facility] Comment on above: Performed By: #### L 500.2500, L503.7505, L100.0100 ####[facility] [address] [place], [address] GAP 14 Normal 5-15 [facility] Comment on above: Performed By: #### L 500.2500, L503.7505, L100.0100 ####[facility] [address] [place], [address] GFR/1.73 sq M.predicted among non-blacks MDRD (S/P/Bld) [Vol rate/Area] 41 mL/min/{1.73_m2} Low >60 [facility] Comment on above: Result Comment: mL/m in/1.73m2 CKD-EPI Creatinine Equation (2020) Performed By: #### L 500.2500, L503.7505, L100.0100 ####[facility] [address] [place], [address] Glucose [Mass/Vol] 202 mg/dL High 70-99 [facility] Comment on above: Performed By: #### L 500.2500, L503.7505, L100.0100 ####[facility] [address] [place], [address] Potassium [Moles/Vol] 4.6 mmol/L Normal 3.3-5.1 [facility] Comment on above: Performed By: #### L 500.2500, L503.7505, L100.0100 ####[facility] [address] [place], [address] Sodium [Moles/Vol] 140 mmol/L Normal 133-145 [facility] Comment on above: Performed By: #### L 500.2500, L503.7505, L100.0100 ####[facility] [address] [place], [address] Urea nitrogen [Mass/Vol] 22 mg/dL High 4-19 [facility] Comment on above: Performed By: #### L 500.2500, L503.7505, L100.0100 ####[facility] [address] [place], [address] Basophil percentageOrdered B y: Keron Maciel on 11-25-2024 Basophils/100 WBC (Bld) 0.6 % 0-1 [facility] CBC W/Diff, Automatedon Absolute Lymph 0.98 X10 3/uL Normal 0.83-4.51 [facility] Comment on above: Performed By: #### L 500.2500, L503.7505, L100.0100 ####[facility] [address] [place], [address] Absolute Neut 4.3 X10 3/uL Normal 2.0-7.7 [facility] Comment on above: Performed By: #### L 500.2500, L503.7505, L100.0100 ####[facility] [address] [place], [address] Basophils/100 WBC (Bld) 0.6 % Normal 0-1 [facility] Comment on above: Performed By: #### L 500.2500, L503.7505, L100.0100 ####[facility] [address] [place], [address] Eosinophils/100 WBC (Bld) 1.9 % Normal 0-5 [facility] Comment on above: Performed By: #### L 500.2500, L503.7505, L100.0100 ####[facility] [address] [place], [address] Erythrocyte distribution width (RBC) [Ratio] 14.6 % Normal 11.6-14.6 [facility] Comment on above: Performed By: #### L 500.2500, L503.7505, L100.0100 ####[facility] [address] [place], [address] Hematocrit (Bld) [Volume fraction] 39.6 % Low 40-54 [facility] Comment on above: Performed By: #### L 500.2500, L503.7505, L100.0100 ####[facility] [address] [place], [address] Hemoglobin (Bld) [Mass/Vol] 13.5 g/dL Normal 13.0-16.5 [facility] Comment on above: Performed By: #### L 500.2500, L503.7505, L100.0100 ####[facility] [address] [place], [address] IG% 2.100 High 0.0-0.9 [facility] Comment on above: Result Comment: IG% - Immature Granulocytes (promyelocytes, myelocytes andmetamyelocytes) > 1% indicates that a LEFT SHIFT is Present. Performed By: #### L 500.2500, L503.7505, L100.0100 ####[facility] [address] [place], [address] Lymphocytes/100 WBC (Bld) 15.9 % Low 19-41 [facility] Comment on above: Performed By: #### L 500.2500, L503.7505, L100.0100 ####[facility] [address] [place], [address] MCH (RBC) [Entitic mass] 33.4 pg High 27.0-32.0 [facility] Comment on above: Performed By: #### L 500.2500, L503.7505, L100.0100 ####[facility] [address] [place], [address] MCHC (RBC) [Mass/Vol] 34.1 g/dL Normal 32-36 [facility] Comment on above: Performed By: #### L 500.2500, L503.7505, L100.0100 ####[facility] [address] [place], [address] MCV (RBC) [Entitic vol] 98.0 fL High 80-94 [facility] Comment on above: Performed By: #### L 500.2500, L503.7505, L100.0100 ####[facility] [address] [place], [address] Monocytes/100 WBC (Bld) 9.7 % Normal 0-10 [facility] Comment on above: Performed By: #### L 500.2500, L503.7505, L100.0100 ####[facility] [address] [place], [address] Neutrophils/100 WBC (Bld) 69.8 % Normal 47-70 [facility] Comment on above: Performed By: #### L 500.2500, L503.7505, L100.0100 ####[facility] [address] [place], [address] Nucleated RBC (Bld) [#/Vol] 0 10*3/uL Normal 0-5 [facility] Comment on above: Performed By: #### L 500.2500, L503.7505, L100.0100 ####[facility] [address] [place], [address] Platelet mean volume (Bld) [Entitic vol] 9.6 fL Normal 6.2-12.0 [facility] Comment on above: Performed By: #### L 500.2500, L503.7505, L100.0100 ####[facility] [address] [place], [address] Platelets (Bld) [#/Vol] 230 10*3/uL Normal 150-450 [facility] Comment on above: Performed By: #### L 500.2500, L503.7505, L100.0100 ####[facility] [address] [place], [address] RBC (Bld) [#/Vol] 4.04 10*6/uL Low 4.6-6.2 [facility] Comment on above: Performed By: #### L 500.2500, L503.7505, L100.0100 ####[facility] [address] [place], [address] RDW SD 53.1 fl High 35.1-43.9 [facility] Comment on above: Performed By: #### L 500.2500, L503.7505, L100.0100 ####[facility] [address] [place], [address] WBC (Bld) [#/Vol] 6.2 10*3/uL Normal 4.4-11.0 [facility] Comment on above: Performed By: #### L 500.2500, L503.7505, L100.0100 ####[facility] [address] [place], [address] Carbon dioxide, total [Moles /volume] in Central venous bloodOrdered By: Keron Maciel on 11-25-2024 CO2 [Moles/Vol] 24.3 mmol/L 21.0-32.0 [facility] Chest PA and Lateralon 11-25 Chest PA and Lateral Normal [facility] Chloride assayOrdered By: Madeleine Maciel on 11-25-2024 Chloride [Moles/Vol] 101 mmol/L 98-108 [facility] Eosinophil percentageOrdered By: Keron Maciel on 11-25-2024 Eosinophils/100 WBC (Bld) 1.9 % 0-5 [facility] Erythrocyte distribution wid th ratioOrdered By: Keron Maciel on 11-25-2024 Erythrocyte distribution width (RBC) [Ratio] 14.6 % 11.6-14.6 [facility] Erythrocyte distribution wid th standard deviationOrdered By: Keron Maciel on 11-25-2024 Erythrocyte distribution width (RBC) [Ratio] 53.1 fl High 35.1-43.9 [facility] Glomerular filtration rate ( GFR) estimation/1.73 sq m using serum, plasma, or whole bOrdered By: Keron Maciel on 11-25-2024 GFR/1.73 sq M.predicted among non-blacks MDRD (S/P/Bld) [Vol rate/Area] 41 mL/min/{1.73_m2} Low >60 [facility] Comment on above: mL/min/1.73m2 CKD-EP I Creatinine Equation (2020) Hematocrit Auto (Bld) [Volum e fraction]Ordered By: Keron Maciel on 11-25-2024 Hematocrit (Bld) [Volume fraction] 39.6 % Low 40-54 [facility] Hemoglobin measurementOrdere d By: Keron Maciel on 11-25-2024 Hemoglobin (Bld) [Mass/Vol] 13.5 g/dL 13.0-16.5 [facility] Immature granulocytes/100 WB C Auto (Bld)Ordered By: Keron Maciel on 11-25-2024 Immature granulocytes/100 WBC (Bld) 2.100 % High 0.0-0.9 [facility] Comment on above: IG% - Immature Granu locytes (promyelocytes, myelocytes and metamyelocytes) > 1% indicates that a LEFT SHIFT is Present. L503.7505on 11-25-2024 Natriuretic peptide B (Bld) [Mass/Vol] 502 pg/mL Normal <=1800 [facility] Comment on above: Result Comment: Hear t Failure Unlikely: < 300 pg/mLHeart Failure Likely< 50 Years: > 450 pg/mL50-75 Years: > 900 pg/mL>75 Years: > 1800 pg/mL Performed By: #### L 500.2500, L503.7505, L100.0100 ####[facility] [address] [place], [address] MCV (mean corpuscular volume ) determinationOrdered By: Keron Maciel on 11-25-2024 MCV (RBC) [Entitic vol] 98.0 fL High 80-94 [facility] MR/BMS.IMBon 11-25-2024 MR/BMS.IMB Normal [facility] Mean corpuscular hemoglobin (MCH) determinationOrdered By: Keron Maciel on 11-25-2024 MCH (RBC) [Entitic mass] 33.4 pg High 27.0-32.0 [facility] Mean corpuscular hemoglobin concentration (MCHC) determinationOrdered By: Keron Maciel on 11-25-2024 MCHC (RBC) [Mass/Vol] 34.1 g/dL 32-36 [facility] Mean platelet volume determi nationOrdered By: Keron Maciel on 11-25-2024 Platelet mean volume (Bld) [Entitic vol] 9.6 fL 6.2-12.0 [facility] Monocyte percentageOrdered B y: Keron Maciel on 11-25-2024 Monocytes/100 WBC (Bld) 9.7 % 0-10 [facility] Natriuretic peptide.B prohor lam N-Terminal [Mass/volume] in Serum or PlasmaOrdered By: Keron Maciel on 11-25-2024 Natriuretic peptide.B prohormone N-Terminal [Mass/Vol] 502 pg/mL <1800 [facility] Comment on above: Heart Failure Unlike ly: < 300 pg/mLHeart Failure Likely< 50 Years: > 450 pg/mL50-75 Years: > 900 pg/mL>75 Years: > 1800 pg/mL Neutrophil percentageOrdered By: Keron Maciel on 11-25-2024 Neutrophils/100 WBC (Bld) 69.8 % 47-70 [facility] Nucleated red blood cell per centageOrdered By: Keron Maciel on 11-25-2024 Nucleated RBC/100 WBC (Bld) [Ratio] 0 % 0-5 [facility] Platelet countOrdered By: Madeleine Maciel on 11-25-2024 Platelets (Bld) [#/Vol] 230 10*3/uL 150-450 [facility] Potassium measurement (mass/ volume)Ordered By: Keron Maciel on 11-25-2024 Potassium (Unsp spec) [Mass/Vol] 4.6 mmol/L 3.3-5.1 [facility] RBC Auto (Bld) [#/Vol]Ordere d By: Keron Maciel on 11-25-2024 RBC (Bld) [#/Vol] 4.04 10*6/uL Low 4.6-6.2 [facility] Serum creatinine measurement (mass/volume)Ordered By: Keron Maciel on 11-25-2024 Creatinine [Mass/Vol] 1.60 mg/dL High 0.70-1.20 [facility] Serum glucose measurement (m ass/volume)Ordered By: Keron Maciel on 11-25-2024 Glucose [Mass/Vol] 202 mg/dL High 70-99 [facility] Serum or plasma calcium odilon urement (mass/volume)Ordered By: Keron Maciel on 11-25-2024 Calcium [Mass/Vol] 10.1 mg/dL 7.6-11.0 [facility] Serum or plasma urea nitroge n measurement (mass/volume)Ordered By: Keron Maciel on 11-25-2024 Urea nitrogen [Mass/Vol] 22 mg/dL High 4-19 [facility] Sodium levelOrdered By: Beatrice Maciel on 11-25-2024 Sodium [Moles/Vol] 140 mmol/L 133-145 [facility] White blood cell (WBC) count Ordered By: Keron Maciel on 11-25-2024 WBC (Bld) [#/Vol] 6.2 10*3/uL 4.4-11.0 [facility] Urine Cultureon 11-22-2024 URC Normal [facility] Comment on above: Performed By: #### M 100.2200 ####[facility] [address] [place], [address] Basic Metabolic Profile (BMP )on 11-20-2024 BUN/CRE 14.4 RATIO Normal 10-20 [facility] Comment on above: Performed By: #### L 100.0100, L501.9520, L500.2500, L503.7505, L501.5200 ####[facility] [address] [place], [address] Calcium [Mass/Vol] 10.0 mg/dL Normal 7.6-11.0 [facility] Comment on above: Performed By: #### L 100.0100, L501.9520, L500.2500, L503.7505, L501.5200 ####[facility] [address] [place], [address] Chloride [Moles/Vol] 97 mmol/L Low 98-108 [facility] Comment on above: Performed By: #### L 100.0100, L501.9520, L500.2500, L503.7505, L501.5200 ####[facility] [address] [place], [address] CO2 [Moles/Vol] 27.2 mmol/L Normal 21.0-32.0 [facility] Comment on above: Performed By: #### L 100.0100, L501.9520, L500.2500, L503.7505, L501.5200 ####[facility] [address] [place], [address] Creatinine [Mass/Vol] 1.77 mg/dL High 0.70-1.20 [facility] Comment on above: Performed By: #### L 100.0100, L501.9520, L500.2500, L503.7505, L501.5200 ####[facility] [address] [place], [address] ECRCL 30.88 ml/min Low 50-250 [facility] Comment on above: Performed By: #### L 100.0100, L501.9520, L500.2500, L503.7505, L501.5200 ####[facility] [address] [place], [address] GAP 13 Normal 5-15 [facility] Comment on above: Performed By: #### L 100.0100, L501.9520, L500.2500, L503.7505, L501.5200 ####[facility] [address] [place], [address] GFR/1.73 sq M.predicted among non-blacks MDRD (S/P/Bld) [Vol rate/Area] 37 mL/min/{1.73_m2} Low >60 [facility] Comment on above: Result Comment: mL/m in/1.73m2 CKD-EPI Creatinine Equation (2020) Performed By: #### L 100.0100, L501.9520, L500.2500, L503.7505, L501.5200 ####[facility] [address] [place], [address] Glucose [Mass/Vol] 102 mg/dL High 70-99 [facility] Comment on above: Performed By: #### L 100.0100, L501.9520, L500.2500, L503.7505, L501.5200 ####[facility] [address] [place], [address] Potassium [Moles/Vol] 4.9 mmol/L Normal 3.3-5.1 [facility] Comment on above: Result Comment: Hemo lysis present, Results??could be affected.?? Performed By: #### L 100.0100, L501.9520, L500.2500, L503.7505, L501.5200 ####[facility] [address] [place], [address] Sodium [Moles/Vol] 138 mmol/L Normal 133-145 [facility] Comment on above: Performed By: #### L 100.0100, L501.9520, L500.2500, L503.7505, L501.5200 ####[facility] [address] [place], [address] Urea nitrogen [Mass/Vol] 26 mg/dL High 4-19 [facility] Comment on above: Performed By: #### L 100.0100, L501.9520, L500.2500, L503.7505, L501.5200 ####[facility] [address] [place], [address] L503.7505on 11-20-2024 Natriuretic peptide B (Bld) [Mass/Vol] 521 pg/mL Normal <=1800 [facility] Comment on above: Result Comment: Hear t Failure Unlikely: < 300 pg/mLHeart Failure Likely< 50 Years: > 450 pg/mL50-75 Years: > 900 pg/mL>75 Years: > 1800 pg/mL Performed By: #### L 100.0100, L501.9520, L500.2500, L503.7505, L501.5200 ####[facility] [address] [place], [address] M100.678on 11-20-2024 M100.678 SARS-CoV-2 (COVID 19 ) Negative INFLUENZA A Negative INFLUENZA B Negative RSV PCR Negative Normal [facility] Comment on above: Performed By: #### M 100.678, L400.0001 ####[facility] [address] [place], [address] Magnesiumon 11-20-2024 Magnesium [Mass/Vol] 2.1 mg/dL Normal 1.5-2.2 [facility] Comment on above: Performed By: #### L 100.0100, L501.9520, L500.2500, L503.7505, L501.5200 ####[facility] [address] [place], [address] Thyroid Stim Hormone (TSH)on 11-20-2024 TSH 1.790 uIU/mL Normal 0.300-4.200 [facility] Comment on above: Performed By: #### L 100.0100, L501.9520, L500.2500, L503.7505, L501.5200 ####[facility] [address] [place], [address] Urinalysis, Completeon 11-20 BACTERIA 2+ /hpf Normal None Seen [facility] Comment on above: Order Comment: COLLE CTOR TO SPECIFY Performed By: #### M 100.678, L400.0001 ####[facility] [address] [place], [address] WBC 50-100 SEEN Normal 0-5 [facility] Comment on above: Order Comment: COLLE CTOR TO SPECIFY Performed By: #### M 100.678, L400.0001 ####[facility] [address] [place], [address] 12 Lead EKGon 11-19-2024 12 Lead EKG Normal [facility] Absolute lymphocyte countOrd ered By: Helio Corrales on 11-19-2024 Lymphocytes Auto (Unsp spec) [#/Vol] 1.46 10*3/uL 0.83-4.51 [facility] Absolute neutrophil countOrd ered By: Helio Corrales on 11-19-2024 Neutrophils (Bld) [#/Vol] 4.8 10*3/uL 2.0-7.7 [facility] Anion gap in Serum or Plasma Ordered By: Helio Corrales on 11-19-2024 Anion gap [Moles/Vol] 13 mmol/L 5-15 [facility] Automated lymphocyte count a s percentage of total leukocytesOrdered By: Helio Corrales on 11-19-2024 Lymphocytes/100 WBC Auto (Unsp spec) 20.0 % 19- [facility] BUN/creatinine ratioOrdered By: Helio Corrales on 11-19-2024 Urea nitrogen/Creatinine [Mass ratio] 14.4 mg/mg 10-20 [facility] Basophil percentageOrdered B y: Helio Corrales on 11-19-2024 Basophils/100 WBC (Bld) 1.0 % 0-1 [facility] Bilirubin Test strip Ql (U)O rdered By: Helio Corrales on 11-19-2024 Bilirubin Ql (U) Negative Negative [facility] CBC W/Diff, Automatedon Absolute Lymph 1.46 X10 3/uL Normal 0.83-4.51 [facility] Comment on above: Performed By: #### L 100.0100, L501.9520, L500.2500, L503.7505, L501.5200 ####[facility] [address] [place], [address] Absolute Neut 4.8 X10 3/uL Normal 2.0-7.7 [facility] Comment on above: Performed By: #### L 100.0100, L501.9520, L500.2500, L503.7505, L501.5200 ####[facility] [address] [place], [address] Basophils/100 WBC (Bld) 1.0 % Normal 0-1 [facility] Comment on above: Performed By: #### L 100.0100, L501.9520, L500.2500, L503.7505, L501.5200 ####[facility] [address] [place], [address] Eosinophils/100 WBC (Bld) 2.1 % Normal 0-5 [facility] Comment on above: Performed By: #### L 100.0100, L501.9520, L500.2500, L503.7505, L501.5200 ####[facility] [address] [place], [address] Erythrocyte distribution width (RBC) [Ratio] 14.6 % Normal 11.6-14.6 [facility] Comment on above: Performed By: #### L 100.0100, L501.9520, L500.2500, L503.7505, L501.5200 ####[facility] [address] [place], [address] Hematocrit (Bld) [Volume fraction] 40.4 % Normal 40-54 [facility] Comment on above: Performed By: #### L 100.0100, L501.9520, L500.2500, L503.7505, L501.5200 ####[facility] [address] [place], [address] Hemoglobin (Bld) [Mass/Vol] 13.4 g/dL Normal 13.0-16.5 [facility] Comment on above: Performed By: #### L 100.0100, L501.9520, L500.2500, L503.7505, L501.5200 ####[facility] [address] [place], [address] IG% 2.300 High 0.0-0.9 [facility] Comment on above: Result Comment: IG% - Immature Granulocytes (promyelocytes, myelocytes andmetamyelocytes) > 1% indicates that a LEFT SHIFT is Present. Performed By: #### L 100.0100, L501.9520, L500.2500, L503.7505, L501.5200 ####[facility] [address] [place], [address] Lymphocytes/100 WBC (Bld) 20.0 % Normal 19-41 [facility] Comment on above: Performed By: #### L 100.0100, L501.9520, L500.2500, L503.7505, L501.5200 ####[facility] [address] [place], [address] MCH (RBC) [Entitic mass] 32.4 pg High 27.0-32.0 [facility] Comment on above: Performed By: #### L 100.0100, L501.9520, L500.2500, L503.7505, L501.5200 ####[facility] [address] [place], [address] MCHC (RBC) [Mass/Vol] 33.2 g/dL Normal 32-36 [facility] Comment on above: Performed By: #### L 100.0100, L501.9520, L500.2500, L503.7505, L501.5200 ####[facility] [address] [place], [address] MCV (RBC) [Entitic vol] 97.6 fL High 80-94 [facility] Comment on above: Performed By: #### L 100.0100, L501.9520, L500.2500, L503.7505, L501.5200 ####[facility] [address] [place], [address] Monocytes/100 WBC (Bld) 9.5 % Normal 0-10 [facility] Comment on above: Performed By: #### L 100.0100, L501.9520, L500.2500, L503.7505, L501.5200 ####[facility] [address] [place], [address] Neutrophils/100 WBC (Bld) 65.1 % Normal 47-70 [facility] Comment on above: Performed By: #### L 100.0100, L501.9520, L500.2500, L503.7505, L501.5200 ####[facility] [address] [place], [address] Nucleated RBC (Bld) [#/Vol] 0 10*3/uL Normal 0-5 [facility] Comment on above: Performed By: #### L 100.0100, L501.9520, L500.2500, L503.7505, L501.5200 ####[facility] [address] [place], [address] Platelet mean volume (Bld) [Entitic vol] 8.8 fL Normal 6.2-12.0 [facility] Comment on above: Performed By: #### L 100.0100, L501.9520, L500.2500, L503.7505, L501.5200 ####[facility] [address] [place], [address] Platelets (Bld) [#/Vol] 233 10*3/uL Normal 150-450 [facility] Comment on above: Performed By: #### L 100.0100, L501.9520, L500.2500, L503.7505, L501.5200 ####[facility] [address] [place], [address] RBC (Bld) [#/Vol] 4.14 10*6/uL Low 4.6-6.2 [facility] Comment on above: Performed By: #### L 100.0100, L501.9520, L500.2500, L503.7505, L501.5200 ####[facility] [address] [place], [address] RDW SD 52.4 fl High 35.1-43.9 [facility] Comment on above: Performed By: #### L 100.0100, L501.9520, L500.2500, L503.7505, L501.5200 ####[facility] [address] [place], [address] WBC (Bld) [#/Vol] 7.3 10*3/uL Normal 4.4-11.0 [facility] Comment on above: Performed By: #### L 100.0100, L501.9520, L500.2500, L503.3095, L501.5200 ####[facility] [address] [place], [address] Carbon dioxide, total [Moles /volume] in Central venous bloodOrdered By: Helio Corrales on 11-19-2024 CO2 [Moles/Vol] 27.2 mmol/L 21.0-32.0 [facility] Chest PA and Lateralon 11-19 Chest PA and Lateral Normal [facility] Chloride assayOrdered By: Sharon Corrales on 11-19-2024 Chloride [Moles/Vol] 97 mmol/L Low 98-108 [facility] Emergency Department Summary on 11-19-2024 Emergency Department Summary Normal [facility] Eosinophil percentageOrdered By: Helio Corrales on 11-19-2024 Eosinophils/100 WBC (Bld) 2.1 % 0-5 [facility] Erythrocyte distribution wid th ratioOrdered By: Helio Corrales on 11-19-2024 Erythrocyte distribution width (RBC) [Ratio] 14.6 % 11.6-14.6 [facility] Erythrocyte distribution wid th standard deviationOrdered By: Helio Corrales on 11-19-2024 Erythrocyte distribution width (RBC) [Ratio] 52.4 fl High 35.1-43.9 [facility] Glomerular filtration rate ( GFR) estimation/1.73 sq m using serum, plasma, or whole bOrdered By: Helio oCrrales on 11-19-2024 GFR/1.73 sq M.predicted among non-blacks MDRD (S/P/Bld) [Vol rate/Area] 37 mL/min/{1.73_m2} Low >60 [facility] Comment on above: mL/min/1.73m2 CKD-EP I Creatinine Equation (2020) Hematocrit Auto (Bld) [Volum e fraction]Ordered By: Helio Corrales on 11-19-2024 Hematocrit (Bld) [Volume fraction] 40.4 % 40-54 [facility] Hemoglobin measurementOrdere d By: Helio Corrales on 11-19-2024 Hemoglobin (Bld) [Mass/Vol] 13.4 g/dL 13.0-16.5 [facility] Immature granulocytes/100 WB C Auto (Bld)Ordered By: Helio Corrales on 11-19-2024 Immature granulocytes/100 WBC (Bld) 2.300 % High 0.0-0.9 [facility] Comment on above: IG% - Immature Granu locytes (promyelocytes, myelocytes and metamyelocytes) > 1% indicates that a LEFT SHIFT is Present. Influenza virus A and B and SARS-CoV-2 (COVID-19) and Respiratory syncytial virus RNAOrdered By: Helio Corrales on 11-19-2024 SARS-CoV-2 (COVID-19) RNA VÍCTOR+probe Ql (Unsp spec) [facility] Ketones Test strip Ql (U)Ord ered By: Helio Corrales on 11-19-2024 Ketones Ql (U) Negative Negative [facility] MCV (mean corpuscular volume ) determinationOrdered By: Helio Corrales on 11-19-2024 MCV (RBC) [Entitic vol] 97.6 fL High 80-94 [facility] Magnesium measurement (mass/ volume)Ordered By: Helio Corrales on 11-19-2024 Magnesium (Unsp spec) [Mass/Vol] 2.1 mg/dL 1.5-2.2 [facility] Mean corpuscular hemoglobin (MCH) determinationOrdered By: Helio Corrales on 11-19-2024 MCH (RBC) [Entitic mass] 32.4 pg High 27.0-32.0 [facility] Mean corpuscular hemoglobin concentration (MCHC) determinationOrdered By: Helio Corrales on 11-19-2024 MCHC (RBC) [Mass/Vol] 33.2 g/dL 32-36 [facility] Mean platelet volume determi nationOrdered By: Helio Corrales on 11-19-2024 Platelet mean volume (Bld) [Entitic vol] 8.8 fL 6.2-12.0 [facility] Microscopic analysis of urin e for red blood cells (RBC)Ordered By: Helio Corrales on 11-19-2024 Microscopic analysis of urine for red blood cells (RBC) 0 SEEN /hpf 0-5 [facility] Monocyte percentageOrdered B y: Helio Corrales on 11-19-2024 Monocytes/100 WBC (Bld) 9.5 % 0-10 [facility] Mucus LM Ql (Urine sed)Order ed By: Helio Corrales on 11-19-2024 Mucus Ql (Urine sed) 0 SEEN /hpf [facility] Natriuretic peptide.B prohor lam N-Terminal [Mass/volume] in Serum or PlasmaOrdered By: Helio Corrales on 11-19-2024 Natriuretic peptide.B prohormone N-Terminal [Mass/Vol] 521 pg/mL <1800 [facility] Comment on above: Heart Failure Unlike ly: < 300 pg/mLHeart Failure Likely< 50 Years: > 450 pg/mL50-75 Years: > 900 pg/mL>75 Years: > 1800 pg/mL Neutrophil percentageOrdered By: Helio Corrales on 11-19-2024 Neutrophils/100 WBC (Bld) 65.1 % 47-70 [facility] Nitrite Test strip Ql (U)Ord ered By: Helio Corrales on 11-19-2024 Nitrite Ql (U) Negative Negative [facility] Nucleated red blood cell per centageOrdered By: Helio Corrales on 11-19-2024 Nucleated RBC/100 WBC (Bld) [Ratio] 0 % 0-5 [facility] Platelet countOrdered By: Sharon Corrales on 11-19-2024 Platelets (Bld) [#/Vol] 233 10*3/uL 150-450 [facility] Potassium measurement (mass/ volume)Ordered By: Helio Corrales on 11-19-2024 Potassium (Unsp spec) [Mass/Vol] 4.9 mmol/L 3.3-5.1 [facility] Comment on above: Hemolysis present, R esults could be affected. Protein Test strip Ql (U)Ord ered By: Helio Corrales on 11-19-2024 Protein Ql (U) 30 mg/dl High Negative [facility] RBC Auto (Bld) [#/Vol]Ordere d By: Helio Corrales on 11-19-2024 RBC (Bld) [#/Vol] 4.14 10*6/uL Low 4.6-6.2 [facility] Serum creatinine measurement (mass/volume)Ordered By: Helio Corrales on 11-19-2024 Creatinine [Mass/Vol] 1.77 mg/dL High 0.70-1.20 [facility] Serum glucose measurement (m ass/volume)Ordered By: Helio Corrales on 11-19-2024 Glucose [Mass/Vol] 102 mg/dL High 70-99 [facility] Serum or plasma calcium odilon urement (mass/volume)Ordered By: Helio Corrales on 11-19-2024 Calcium [Mass/Vol] 10.0 mg/dL 7.6-11.0 [facility] Serum or plasma urea nitroge n measurement (mass/volume)Ordered By: Helio Corrales on 11-19-2024 Urea nitrogen [Mass/Vol] 26 mg/dL High 4-19 [facility] Sodium levelOrdered By: Soto Corrales on 11-19-2024 Sodium [Moles/Vol] 138 mmol/L 133-145 [facility] Squamous epithelial cells de tection in urine sediment by light microscopyOrdered By: Helio Corrales on 11-19-2024 Epithelial cells.squamous LM Ql (Urine sed) 0 SEEN /hpf 0-5 [facility] TSH DL <= 0.005 mIU/L QnOrde red By: Helio Corrales on 11-19-2024 TSH Qn 1.790 uIU/mL 0.300-4.200 [facility] Urinalysis, Completeon 11-19 EPI,SQUAMOUS 0 SEEN Normal 0-5 [facility] Comment on above: Order Comment: LOIS CTOR TO SPECIFY Performed By: #### M 100.678, L400.0001 ####[facility] [address] [place], [address] Mucus Ql (Urine sed) 0 SEEN Normal [facility] Comment on above: Order Comment: LOIS CTOR TO SPECIFY Performed By: #### M 100.678, L400.0001 ####[facility] [address] [place], [address] RBC 0 SEEN Normal 0-5 [facility] Comment on above: Order Comment: COLLE CTOR TO SPECIFY Performed By: #### M 100.678, L400.0001 ####[facility] [address] [place], [address] Urine clarityOrdered By: Jovany Corrales on 11-19-2024 Clarity (U) Sl. Cloudy Clear [facility] Urine color determinationOrd ered By: Helio Corrales on 11-19-2024 Color (U) Yellow Yellow [facility] Urine cultureOrdered By: Jovany Corrales on 11-19-2024 Bacteria identified Cx Nom (U) Enterobacter cloacae complex Abnormal [facility] Urine glucose detectionOrder ed By: Helio Corrales on 11-19-2024 Glucose Ql (U) Normal mg/dl Normal [facility] Urine leukocyte esterase det ection by dipstickOrdered By: Helio Corrales on 11-19-2024 Leukocyte esterase Test strip Ql (U) 500 /ul High Negative [facility] Urine pHOrdered By: Helio randle on 11-19-2024 pH (U) 6.0 [pH] 5.0 - 8.0 [facility] Urine sediment bacteria coun t by microscopy (number/high power field)Ordered By: Helio Corrales on 11-19-2024 Bacteria LM.HPF (Urine sed) [#/Area] 2 /[HPF] None Seen [facility] Urine specific gravity measu rementOrdered By: Helio Corrales on 11-19-2024 Specific gravity (U) [Rel density] 1.015 1.002-1.030 [facility] Urine urobilinogen measureme ntOrdered By: Helio Corrales on 11-19-2024 Urobilinogen Ql (U) Normal mg/dl Normal [facility] White blood cell (WBC) count Ordered By: Helio Corrales on 11-19-2024 WBC (Bld) [#/Vol] 7.3 10*3/uL 4.4-11.0 [facility] White blood cell countOrdere d By: Helio Corrales on 11-19-2024 White blood cell count 50-100 SEEN /hpf 0-5 [facility] CNOVon 09-06-2024 CNOV Office Visit (PODIWS ) OLMAN SYED ([id number]) 1935 M Date Time Provider Department 09/06/24 [...] (or decreased sensation in your feet) a printing specialist should always cut your toenails. Be Careful [...] more t (more content not included)... Normal [facility] Neurology Visit Reporton Neurology Visit Report Normal [facility] MR/BMS.[facility] 07-25-2024 MR/BMS.IMB Normal [facility] Cerv Spine 2 or 3 Viewson Cerv Spine 2 or 3 Views Normal [facility] MR/BMS.[facility] 06-24-2024 MR/BMS.IMB Normal [facility] Bedside Glucoseon 06-16-2024 FINGERSTICK GLU 219 mg/dL High 74-106 [facility] Comment on above: Result Comment: NAGI SIMMS OF PATIENT CARE PER NURSING PROTOCOL Performed By: #### L 501.080 ####[facility] [address] [place], [place], [id number] FINGERSTICK GLU 130 mg/dL High 74-106 [facility] Comment on above: Result Comment: NAGI SIMMS OF PATIENT CARE PER NURSING PROTOCOL Performed By: #### L 501.080 ####[facility] [address] [place], [place], [id number] Discharge Instructionon - Discharge Instruction Normal [facility] Urine Drug Screen (VISTA)on 06-16-2024 AMPHETAMINES Negative Normal <1000 ng/mL [facility] Comment on above: Order Comment: SENT LABEL TO PCU TO COLLECT Performed By: #### L 501.9520, L505.5000, L500.4100, L501.4020, L501.9100, L506.0250, L503.0105 ####[facility] [address] [place], [address] BARBITIURATES Negative Normal < 200 ng/mL [facility] Comment on above: Order Comment: SENT LABEL TO PCU TO COLLECT Performed By: #### L 501.9520, L505.5000, L500.4100, L501.4020, L501.9100, L506.0250, L503.0105 ####[facility] [address] [place], [place], [phone] BENZODIAZIPINE Negative Normal < 200 ng/mL [facility] Comment on above: Order Comment: SENT LABEL TO U TO COLLECT Performed By: #### L 501.9520, L505.5000, L500.4100, L501.4020, L501.9100, L506.0250, L503.0105 ####[facility] [address] [place], [place], [phone] COCAINE Negative Normal < 300 ng/mL [facility] Comment on above: Order Comment: SENT LABEL TO PCU TO COLLECT Performed By: #### L 501.9520, L505.5000, L500.4100, L501.4020, L501.9100, L506.0250, L503.0105 ####[facility] [address] [place], [phone] ECSTACY Negative Normal < 500 ng/mL [facility] Comment on above: Order Comment: SENT LABEL TO PCU TO COLLECT Performed By: #### L 501.9520, L505.5000, L500.4100, L501.4020, L501.9100, L506.0250, L503.0105 ####[facility] [address] [place], [address] METHADONE Negative Normal < 300 ng/mL [facility] Comment on above: Order Comment: SENT LABEL TO PCU TO COLLECT Performed By: #### L 501.9520, L505.5000, L500.4100, L501.4020, L501.9100, L506.0250, L503.0105 ####[facility] [address] [place], [address] OPIATES Negative Normal < 300 ng/mL [facility] Comment on above: Order Comment: SENT LABEL TO PCU TO COLLECT Performed By: #### L 501.9520, L505.5000, L500.4100, L501.4020, L501.9100, L506.0250, L503.0105 ####[facility] [address] [place], [place], [phone] PCP Negative Normal < 25 ng/mL [facility] Comment on above: Order Comment: SENT LABEL TO PCU TO COLLECT Performed By: #### L 501.9520, L505.5000, L500.4100, L501.4020, L501.9100, L506.0250, L503.0105 ####[facility] [address] [place], [phone] THC Negative Normal < 50 ng/mL [facility] Comment on above: Order Comment: SENT LABEL TO PCU TO COLLECT Performed By: #### L 501.9520, L505.5000, L500.4100, L501.4020, L501.9100, L506.0250, L503.0105 ####[facility] [address] [place], [address] VISTA UDS PH 5 Normal [facility] Comment on above: Order Comment: SENT LABEL TO PCU TO COLLECT Performed By: #### L 501.9520, L505.5000, L500.4100, L501.4020, L501.9100, L506.0250, L503.0105 ####[facility] [address] [place], [address] Alcohol, Blood (Medical)-Ser umon 06-15-2024 SERUM ETOH < 3.0 Normal [facility] Comment on above: Result Comment: The serum:whole blood ethanol ratio is approximately 1.14and varies slightly with hematocrit.Medical Alcohol reference interval and critical value innon-tolerant individuals; 50 - 100 Impairment 100 Intoxication 100 - 250 Severe Poisoning 250 - 400 Deep/possible fatal coma Performed By: #### L 501.9520, L505.5000, L500.4100, L501.4020, L501.9100, L506.0250, L503.0105 ####[facility] [address] [place], [address] Bedside Glucoseon 06-15-2024 FINGERSTICK GLU 117 mg/dL High 74-106 [facility] Comment on above: Result Comment: NAGI GEMENT OF PATIENT CARE PER NURSING PROTOCOL Performed By: #### L 501.080 ####[facility] [address] [place], [address] FINGERSTICK GLU 125 mg/dL High 74-106 [facility] Comment on above: Result Comment: NAGI GEMENT OF PATIENT CARE PER NURSING PROTOCOL Performed By: #### L 501.080 ####[facility] [address] [place], [address] FINGERSTICK GLU 150 mg/dL High 74-106 [facility] Comment on above: Result Comment: NAGI GEMENT OF PATIENT CARE PER NURSING PROTOCOL Performed By: #### L 501.080 ####[facility] [address] [place], [address] FINGERSTICK GLU 103 mg/dL Normal 74-106 [facility] Comment on above: Result Comment: NAGI GEMENT OF PATIENT CARE PER NURSING PROTOCOL Performed By: #### L 501.080 ####[facility] [address] [place], [address] FINGERSTICK GLU 66 mg/dL Low 74-106 [facility] Comment on above: Result Comment: NAGI GEMENT OF PATIENT CARE PER NURSING PROTOCOL Performed By: #### L 501.080 ####[facility] [address] [place], [address] FINGERSTICK GLU 69 mg/dL Low 74-106 [facility] Comment on above: Result Comment: NAGI GEMENT OF PATIENT CARE PER NURSING PROTOCOL Performed By: #### L 501.080 ####[facility] [address] [place], [address] Brain without Contraston Brain without Contrast Normal [facility] CBC W/Diff, Automatedon - ACANTHOCYTE RARE Normal [facility] Comment on above: Performed By: #### L 100.0100, L501.9985, L500.4050, L501.5200, L501.4020, L501.2300 ####[facility] [address] [place], [address] Anisocytosis Ql (Bld) 2+ Normal [facility] Comment on above: Performed By: #### L 100.0100, L501.9985, L500.4050, L501.5200, L501.4020, L501.2300 ####[facility] [address] [place], [address] CRENATED RBC 1+ Normal [facility] Comment on above: Performed By: #### L 100.0100, L501.9985, L500.4050, L501.5200, L501.4020, L501.2300 ####[facility] [address] [place], [address] MACROCYTOSIS 1+ Normal [facility] Comment on above: Performed By: #### L 100.0100, L501.9985, L500.4050, L501.5200, L501.4020, L501.2300 ####[facility] [address] [place], [address] MICROCYTIC 1+ Normal [facility] Comment on above: Performed By: #### L 100.0100, L501.9985, L500.4050, L501.5200, L501.4020, L501.2300 ####[facility] [address] [place], [address] POLYCHROMASIA 1+ Normal [facility] Comment on above: Performed By: #### L 100.0100, L501.9985, L500.4050, L501.5200, L501.4020, L501.2300 ####[facility] [address] [place], [address] SCHISTOCYTES RARE Normal [facility] Comment on above: Performed By: #### L 100.0100, L501.9985, L500.4050, L501.5200, L501.4020, L501.2300 ####[facility] [address] [place], [address] TARGET CELLS 2+ Normal [facility] Comment on above: Performed By: #### L 100.0100, L501.9985, L500.4050, L501.5200, L501.4020, L501.2300 ####[facility] [address] [place], [address] TEAR DROP 1+ Normal [facility] Comment on above: Performed By: #### L 100.0100, L501.9985, L500.4050, L501.5200, L501.4020, L501.2300 ####[facility] [address] [place], [address] SMEAR COMMENT SCANNED Normal [facility] Comment on above: Performed By: #### L 100.0100, L501.9985, L500.4050, L501.5200, L501.4020, L501.2300 ####[facility] [address] [place], [address] Anisocytosis Ql (Bld) 2+ Normal [facility] Comment on above: Performed By: #### L 100.0100, L300.4310, L300.3900 ####[facility] [address] [place], [address] HYPOCHROMASIA RARE Normal [facility] Comment on above: Performed By: #### L 100.0100, L300.4310, L300.3900 ####[facility] [address] [place], [address] PLT EST ADEQUATE Normal ADEQ [facility] Comment on above: Performed By: #### L 100.0100, L501.9985, L500.4050, L501.5200, L501.4020, L501.2300 ####[facility] [address] [place], [address] Performed By: #### L 100.0100, L300.4310, L300.3900 ####[facility] [address] [place], [address] Comprehensive Metabolic Prof tnon 06-15-2024 Albumin [Mass/Vol] 3.0 g/dL Low 3.2-5.0 [facility] Comment on above: Order Comment: Comme nts: SPECIMEN #2'TROP' Serial specimen #1, #2 or #3: 2 Performed By: #### L 100.0100, L501.9985, L500.4050, L501.5200, L501.4020, L501.2300 ####[facility] [address] [place], [address] Albumin/Globulin [Mass ratio] 1.1 {ratio} Normal 0.9-2.4 [facility] Comment on above: Order Comment: Comme nts: SPECIMEN #2'TROP' Serial specimen #1, #2 or #3: 2 Performed By: #### L 100.0100, L501.9985, L500.4050, L501.5200, L501.4020, L501.2300 ####[facility] [address] [place], [address] ALK P 50 U/L Normal 45-117 [facility] Comment on above: Order Comment: Comme nts: SPECIMEN #2'TROP' Serial specimen #1, #2 or #3: 2 Performed By: #### L 100.0100, L501.9985, L500.4050, L501.5200, L501.4020, L501.2300 ####[facility] [address] [place], [address] ALT [Catalytic activity/Vol] 7 U/L Low 16-61 [facility] Comment on above: Order Comment: Comme nts: SPECIMEN #2'TROP' Serial specimen #1, #2 or #3: 2 Performed By: #### L 100.0100, L501.9985, L500.4050, L501.5200, L501.4020, L501.2300 ####[facility] [address] [place], [address] AST [Catalytic activity/Vol] 7 U/L Low 15-37 [facility] Comment on above: Order Comment: Comme nts: SPECIMEN #2'TROP' Serial specimen #1, #2 or #3: 2 Performed By: #### L 100.0100, L501.9985, L500.4050, L501.5200, L501.4020, L501.2300 ####[facility] [address] [place], [address] Bilirubin [Mass/Vol] 0.70 mg/dL Normal 0.20-1.00 [facility] Comment on above: Order Comment: Comme nts: SPECIMEN #2'TROP' Serial specimen #1, #2 or #3: 2 Result Comment: For patients on eltrombopag therapy, use of Dimension Oriska TBIL is not recommended. Performed By: #### L 100.0100, L501.9985, L500.4050, L501.5200, L501.4020, L501.2300 ####[facility] [address] [place], [address] BUN/CRE 12.4 RATIO Normal 10-20 [facility] Comment on above: Order Comment: Comme nts: SPECIMEN #2'TROP' Serial specimen #1, #2 or #3: 2 Performed By: #### L 100.0100, L501.9985, L500.4050, L501.5200, L501.4020, L501.2300 ####[facility] [address] [place], [address] CA,Total 8.9 mg/dL Normal 8.5-10.1 [facility] Comment on above: Order Comment: Comme nts: SPECIMEN #2'TROP' Serial specimen #1, #2 or #3: 2 Performed By: #### L 100.0100, L501.9985, L500.4050, L501.5200, L501.4020, L501.2300 ####[facility] [address] [place], [address] Chloride [Moles/Vol] 102 mmol/L Normal 98-107 [facility] Comment on above: Order Comment: Comme nts: SPECIMEN #2'TROP' Serial specimen #1, #2 or #3: 2 Performed By: #### L 100.0100, L501.9985, L500.4050, L501.5200, L501.4020, L501.2300 ####[facility] [address] [place], [address] CO2 [Moles/Vol] 29.0 mmol/L Normal 21.0-32.0 [facility] Comment on above: Order Comment: Comme nts: SPECIMEN #2'TROP' Serial specimen #1, #2 or #3: 2 Performed By: #### L 100.0100, L501.9985, L500.4050, L501.5200, L501.4020, L501.2300 ####[facility] [address] [place], [address] Creatinine [Mass/Vol] 2.25 mg/dL High 0.70-1.30 [facility] Comment on above: Order Comment: Comme nts: SPECIMEN #2'TROP' Serial specimen #1, #2 or #3: 2 Result Comment: The validity of the calculated GFR GFRAA in patients over70 years has not been determined. Clinical correlation isessential. Performed By: #### L 100.0100, L501.9985, L500.4050, L501.5200, L501.4020, L501.2300 ####[facility] [address] [place], [address] ECRCL 27.67 ml/min Normal [facility] Comment on above: Order Comment: Comme nts: SPECIMEN #2'TROP' Serial specimen #1, #2 or #3: 2 Performed By: #### L 100.0100, L501.9985, L500.4050, L501.5200, L501.4020, L501.2300 ####[facility] [address] [place], [address] EST GFR - AA 36 mL/min Low >60 [facility] Comment on above: Order Comment: Comme nts: SPECIMEN #2'TROP' Serial specimen #1, #2 or #3: 2 Result Comment: Afri can Cambodian GFR Calc Performed By: #### L 100.0100, L501.9985, L500.4050, L501.5200, L501.4020, L501.2300 ####[facility] [address] [place], [address] GAP 6 Normal 5-15 [facility] Comment on above: Order Comment: Comme nts: SPECIMEN #2'TROP' Serial specimen #1, #2 or #3: 2 Performed By: #### L 100.0100, L501.9985, L500.4050, L501.5200, L501.4020, L501.2300 ####[facility] [address] [place], [address] GFR/1.73 sq M.predicted among non-blacks MDRD (S/P/Bld) [Vol rate/Area] 30 mL/min/{1.73_m2} Low >60 [facility] Comment on above: Order Comment: Comme nts: SPECIMEN #2'TROP' Serial specimen #1, #2 or #3: 2 Result Comment: Non- GFR Calc Performed By: #### L 100.0100, L501.9985, L500.4050, L501.5200, L501.4020, L501.2300 ####[facility] [address] [place], [place], [phone] Globulin (S) [Mass/Vol] 2.7 g/dL Normal 2.2-4.2 [facility] Comment on above: Order Comment: Comme nts: SPECIMEN #2'TROP' Serial specimen #1, #2 or #3: 2 Performed By: #### L 100.0100, L501.9985, L500.4050, L501.5200, L501.4020, L501.2300 ####[facility] [address] [place], [address] Glucose [Mass/Vol] 80 mg/dL Normal 74-106 [facility] Comment on above: Order Comment: Comme nts: SPECIMEN #2'TROP' Serial specimen #1, #2 or #3: 2 Performed By: #### L 100.0100, L501.9985, L500.4050, L501.5200, L501.4020, L501.2300 ####[facility] [address] [place], [address] Potassium [Moles/Vol] 3.5 mmol/L Normal 3.5-5.1 [facility] Comment on above: Order Comment: Comme nts: SPECIMEN #2'TROP' Serial specimen #1, #2 or #3: 2 Performed By: #### L 100.0100, L501.9985, L500.4050, L501.5200, L501.4020, L501.2300 ####[facility] [address] [place], [address] Sodium [Moles/Vol] 137 mmol/L Normal 136-145 [facility] Comment on above: Order Comment: Comme nts: SPECIMEN #2'TROP' Serial specimen #1, #2 or #3: 2 Performed By: #### L 100.0100, L501.9985, L500.4050, L501.5200, L501.4020, L501.2300 ####[facility] [address] [place], [place], [phone] T PROT 5.7 g/dL Low 6.4-8.2 [facility] Comment on above: Order Comment: Comme nts: SPECIMEN #2'TROP' Serial specimen #1, #2 or #3: 2 Performed By: #### L 100.0100, L501.9985, L500.4050, L501.5200, L501.4020, L501.2300 ####[facility] [address] [place], [address] Urea nitrogen [Mass/Vol] 28 mg/dL High 7-18 [facility] Comment on above: Order Comment: Comme nts: SPECIMEN #2'TROP' Serial specimen #1, #2 or #3: 2 Performed By: #### L 100.0100, L501.9985, L500.4050, L501.5200, L501.4020, L501.2300 ####[facility] [address] [place], [address] Echo Complete W/ Contraston 06-15-2024 Echo Complete W/ Contrast Normal [facility] Emergency Department Summary on 06-15-2024 Emergency Department Summary Normal [facility] Folates, (Folic Acid)on 05-20 FOLATES 8.00 ng/mL Normal 3.1-55.4 [facility] Comment on above: Order Comment: Has P atient had X-rays with Contrast this admission? N'TROP' Serial specimen #1, #2 or #3: 1Y Performed By: #### L 501.9520, L505.5000, L500.4100, L501.4020, L501.9100, L506.0250, L503.0105 ####[facility] [address] [place], [address] H AND P Exam - Hospitaliston 06-15-2024 H&P Exam - Hospitalist Normal [facility] Hemoglobin A1con 06-15-2024 HbA1c (Bld) [Mass fraction] 6.2 % High 3.8-5.6 [facility] Comment on above: Result Comment: Norm al < 5.7 % Prediabetic 5.7 - 6.4 % Diabetic >or= 6.5 % Please note range changes. Performed By: #### L 100.0100, L501.9985, L500.4050, L501.5200, L501.4020, L501.2300 ####[facility] [address] [place], [address] L501.4020on 06-15-2024 TROPONIN-I HS 33 pg/mL Normal 3.0-78.0 [facility] Comment on above: Order Comment: Comme nts: SPECIMEN #3'TROP' Serial specimen #1, #2 or #3: 3 Result Comment: Plea se Note: New Test Units and Gender Specific Reference Ranges. For more information see Policy Stat Procedure Oriska High Sensitivity Troponin (TNIH) and attachments. Performed By: #### L 501.4020 ####[facility] [address] [place], [address] TROPONIN-I HS 31 pg/mL Normal 3.0-78.0 [facility] Comment on above: Order Comment: Comme nts: SPECIMEN #2'TROP' Serial specimen #1, #2 or #3: 2 Result Comment: Plea se Note: New Test Units and Gender Specific Reference Ranges. For more information see Policy Stat Procedure Oriska High Sensitivity Troponin (TNIH) and attachments. Performed By: #### L 100.0100, L501.9985, L500.4050, L501.5200, L501.4020, L501.2300 ####[facility] [address] [place], [address] TROPONIN-I HS 35 pg/mL Normal 3.0-78.0 [facility] Comment on above: Order Comment: Has P atient had X-rays with Contrast this admission? N'TROP' Serial specimen #1, #2 or #3: 1Y Result Comment: Plea se Note: New Test Units and Gender Specific Reference Ranges. For more information see Policy Stat Procedure Oriska High Sensitivity Troponin (TNIH) and attachments. Performed By: #### L 501.9520, L505.5000, L500.4100, L501.4020, L501.9100, L506.0250, L503.0105 ####[facility] [address] [place], [address] Lipid Profileon 06-15-2024 Cholesterol [Mass/Vol] 148 mg/dL Normal 200 [facility] Comment on above: Order Comment: Has P atient had X-rays with Contrast this admission? N'TROP' Serial specimen #1, #2 or #3: 1Y Result Comment: <200 mg/dL Desirable 200-240 mg/dL Borderline >240 mg/dL High Risk Performed By: #### L 501.9520, L505.5000, L500.4100, L501.4020, L501.9100, L506.0250, L503.0105 ####[facility] [address] [place], [address] Cholesterol in HDL [Mass/Vol] 46 mg/dL Normal [facility] Comment on above: Order Comment: Has Manda chavez had X-rays with Contrast this admission? N'TROP' Serial specimen #1, #2 or #3: 1Y Result Comment: The drugs N-Acetylcysteine and Metamizole may falselydepress this assay. Reference Range HDL <40 mg/dL Low HDL Cholesterol HDL >or= 60 mg/dL High HDL Cholesterol Performed By: #### L 501.9520, L505.5000, L500.4100, L501.4020, L501.9100, L506.0250, L503.0105 ####[facility] [address] [place], [address] Cholesterol in LDL [Mass/Vol] 64 mg/dL Normal 0-130 [facility] Comment on above: Order Comment: Has Manda chavez had X-rays with Contrast this admission? N'TROP' Serial specimen #1, #2 or #3: 1Y Performed By: #### L 501.9520, L505.5000, L500.4100, L501.4020, L501.9100, L506.0250, L503.0105 ####[facility] [address] [place], [address] Cholesterol in VLDL [Mass/Vol] 38 mg/dL Normal 5-40 [facility] Comment on above: Order Comment: Has Manda chavez had X-rays with Contrast this admission? N'TROP' Serial specimen #1, #2 or #3: 1Y Performed By: #### L 501.9520, L505.5000, L500.4100, L501.4020, L501.9100, L506.0250, L503.0105 ####[facility] [address] [place], [address] Triglyceride [Mass/Vol] 189 mg/dL Normal [facility] Comment on above: Order Comment: Has Manda chavez had X-rays with Contrast this admission? N'TROP' Serial specimen #1, #2 or #3: 1Y Result Comment: The drugs N-Acetylcysteine and Metamizole may falselydepress this assay.Serum Triglycerides Reference Interval Normal <150 mg/dL Borderline high 150 - 199 mg/dL High 200 - 499 mg/dL Very High > or = 500 mg/dL Performed By: #### L 501.9520, L505.5000, L500.4100, L501.4020, L501.9100, L506.0250, L503.0105 ####[facility] [address] [place], [address] Magnesiumon 06-15-2024 Magnesium [Mass/Vol] 1.7 mg/dL Normal 1.6-2.6 [facility] Comment on above: Order Comment: Comme nts: SPECIMEN #2'TROP' Serial specimen #1, #2 or #3: 2 Performed By: #### L 100.0100, L501.9985, L500.4050, L501.5200, L501.4020, L501.2300 ####[facility] [id number] [place], [address] Partial Thromboplast Timeon 06-15-2024 aPTT Coag (Bld) [Time] 26.1 s Normal 24.1-36.2 [facility] Comment on above: Performed By: #### L 100.0100, L300.4310, L300.3900 ####[facility] [id number] [place], [address] Phosphoruson 06-15-2024 Phosphate [Mass/Vol] 4.3 mg/dL Normal 2.5-4.9 [facility] Comment on above: Order Comment: Comme nts: SPECIMEN #2'TROP' Serial specimen #1, #2 or #3: 2 Performed By: #### L 100.0100, L501.9985, L500.4050, L501.5200, L501.4020, L501.2300 ####[facility] [id number], [address] Prothrombin Time w/INRon INR Coag (PPP) [Relative time] 1.2 {INR} Normal [facility] Comment on above: Performed By: #### L 100.0100, L300.4310, L300.3900 ####[facility] [id number] [place], [address] PT Coag (PPP) [Time] 15.0 s High 11.7-14.9 [facility] Comment on above: Performed By: #### L 100.0100, L300.4310, L300.3900 ####[facility] [address] [place], [address] Thyroid Stim Hormone (TSH)on 06-15-2024 TSH 3.230 uIU/mL Normal 0.358-3.740 [facility] Comment on above: Order Comment: Has P atient had X-rays with Contrast this admission? N'TROP' Serial specimen #1, #2 or #3: 1Y Performed By: #### L 501.9520, L505.5000, L500.4100, L501.4020, L501.9100, L506.0250, L503.0105 ####[facility] [address] [place], [address] Vitamin B12on 06-15-2024 Cobalamin (Vitamin B12) [Mass/Vol] pg/mL High 211-911 [facility] Comment on above: Performed By: #### L 501.9520, L505.5000, L500.4100, L501.4020, L501.9100, L506.0250, L503.0105 ####[facility] [address] [place], [address] 12 Lead EKGon 06-14-2024 12 Lead EKG Normal [facility] Basic Metabolic Profile (BMP )on 06-14-2024 BUN/CRE 11.6 RATIO Normal 10-20 [facility] Comment on above: Performed By: #### L 500.2500, L501.5200 ####[facility] [address] [place], [address] CA,Total 9.5 mg/dL Normal 8.5-10.1 [facility] Comment on above: Performed By: #### L 500.2500, L501.5200 ####[facility] [address] [place], [address] Chloride [Moles/Vol] 102 mmol/L Normal 98-107 [facility] Comment on above: Performed By: #### L 500.2500, L501.5200 ####[facility] [address] [place], [address] CO2 [Moles/Vol] 21.0 mmol/L Normal 21.0-32.0 [facility] Comment on above: Performed By: #### L 500.2500, L501.5200 ####[facility] [address] [place], [address] Creatinine [Mass/Vol] 2.25 mg/dL High 0.70-1.30 [facility] Comment on above: Result Comment: The validity of the calculated GFR GFRAA in patients over70 years has not been determined. Clinical correlation isessential. Performed By: #### L 500.2500, L501.5200 ####[facility] [address] [place], [address] ECRCL 25.79 ml/min Normal [facility] Comment on above: Performed By: #### L 500.2500, L501.5200 ####[facility] [address] [place], [address] EST GFR - AA 36 mL/min Low >60 [facility] Comment on above: Result Comment: Afri can Cambodian GFR Calc Performed By: #### L 500.2500, L501.5200 ####[facility] [address] [place], [address] GAP 14 Normal 5-15 [facility] Comment on above: Performed By: #### L 500.2500, L501.5200 ####[facility] [address] [place], [address] GFR/1.73 sq M.predicted among non-blacks MDRD (S/P/Bld) [Vol rate/Area] 30 mL/min/{1.73_m2} Low >60 [facility] Comment on above: Result Comment: Non- GFR Calc Performed By: #### L 500.2500, L501.5200 ####[facility] [address] [place], [address] Glucose [Mass/Vol] 120 mg/dL High 74-106 [facility] Comment on above: Result Comment: Fast ing Glucose result from 100 to 125 mg/dLsuggests IMPAIRED HOMEOSTASIS per A.D.A. criteria. Performed By: #### L 500.2500, L501.5200 ####[facility] [address] [place], [address] Potassium [Moles/Vol] 3.9 mmol/L Normal 3.5-5.1 [facility] Comment on above: Result Comment: Slig ht Hemolysis, Result may be falsely increased. Performed By: #### L 500.2500, L501.5200 ####[facility] [address] [place], [address] Sodium [Moles/Vol] 136 mmol/L Normal 136-145 [facility] Comment on above: Performed By: #### L 500.2500, L501.5200 ####[facility] [address] [place], [address] Urea nitrogen [Mass/Vol] 26 mg/dL High 7-18 [facility] Comment on above: Performed By: #### L 500.2500, L501.5200 ####[facility] [address] [place], [address] Brain/Head without Contrasto n 06-14-2024 Brain/Head without Contrast Normal [facility] Magnesiumon 06-14-2024 Magnesium [Mass/Vol] 1.8 mg/dL Normal 1.6-2.6 [facility] Comment on above: Result Comment: Slig ht Hemolysis, Result may be falsely increased. Performed By: #### L 500.2500, L501.5200 ####[facility] [address] [place], [address] CNOVon 06-06-2024 CNOV Office Visit (PODIWS ) OLMAN SYED ([id number]) 1935 M Date Time Provider Department 06/06/24 9:45 AM BARBIE NOVA PODANGELA During your visit today, we recorded the [...] (or decreased sensation in your feet) a printing specialist should always cut your toenails. Be Careful [...] Go to your health care provider or printing specialist to treat these conditions. Barbie Nova 07/20/2024 [...] DP and (more content not included)... Normal [facility] MR/BMS.IMBon 05-20-2024 MR/BMS.IMB Normal [facility] CBC W/Diff, Automatedon - Absolute Lymph 1.31 X10 3/uL Normal 0.83-4.51 [facility] Comment on above: Performed By: #### L 501.5200, L501.95690, L501.9910, L501.9985, L501.9520, L500.4100, L500.4050, L503.0105, L506.0400, L100.0100 ####[facility] [address] [place], [place], [phone](169) Absolute Neut 3.7 X10 3/uL Normal 2.0-7.7 [facility] Comment on above: Performed By: #### L 501.5200, L501.72627, L501.9910, L501.9985, L501.9520, L500.4100, L500.4050, L503.0105, L506.0400, L100.0100 ####[facility] [address] [place], [address](438) Basophils/100 WBC (Bld) 0.9 % Normal 0-1 [facility] Comment on above: Performed By: #### L 501.5200, L501.92661, L501.9910, L501.9985, L501.9520, L500.4100, L500.4050, L503.0105, L506.0400, L100.0100 ####[facility] [address] [place], [address](654) Eosinophils/100 WBC (Bld) 8.9 % High 0-5 [facility] Comment on above: Performed By: #### L 501.5200, L501.87940, L501.9910, L501.9985, L501.9520, L500.4100, L500.4050, L503.0105, L506.0400, L100.0100 ####[facility] [address] [place], [address] Erythrocyte distribution width (RBC) [Ratio] 19.1 % High 11.6-14.6 [facility] Comment on above: Performed By: #### L 501.5200, L501.81662, L501.9910, L501.9985, L501.9520, L500.4100, L500.4050, L503.0105, L506.0400, L100.0100 ####[facility] [address] [place], [address] Hematocrit (Bld) [Volume fraction] 32.2 % Low 40-54 [facility] Comment on above: Performed By: #### L 501.5200, L501.89783, L501.9910, L501.9985, L501.9520, L500.4100, L500.4050, L503.0105, L506.0400, L100.0100 ####[facility] [address] [place], [address] Hemoglobin (Bld) [Mass/Vol] 9.9 g/dL Low 13.0-16.5 [facility] Comment on above: Performed By: #### L 501.5200, L501.30000, L501.9910, L501.9985, L501.9520, L500.4100, L500.4050, L503.0105, L506.0400, L100.0100 ####[facility] [address] [facility] [place], [address] IG% 0.800 Normal 0.0-0.9 [facility] Comment on above: Result Comment: IG% - Immature Granulocytes (promyelocytes, myelocytes andmetamyelocytes) > 1% indicates that a LEFT SHIFT is Present. Performed By: #### L 501.5200, L501.07642, L501.9910, L501.9985, L501.9520, L500.4100, L500.4050, L503.0105, L506.0400, L100.0100 ####[facility] [address] [place], [address] Lymphocytes/100 WBC (Bld) 20.4 % Normal 19-41 [facility] Comment on above: Performed By: #### L 501.5200, L501.60020, L501.9910, L501.9985, L501.9520, L500.4100, L500.4050, L503.0105, L506.0400, L100.0100 ####[facility] [address] [place], [address] MCH (RBC) [Entitic mass] 24.3 pg Low 27.0-32.0 [facility] Comment on above: Performed By: #### L 501.5200, L501.89522, L501.9910, L501.9985, L501.9520, L500.4100, L500.4050, L503.0105, L506.0400, L100.0100 ####[facility] [address] [place], [address] MCHC (RBC) [Mass/Vol] 30.7 g/dL Low 32-36 [facility] Comment on above: Performed By: #### L 501.5200, L501.96577, L501.9910, L501.9985, L501.9520, L500.4100, L500.4050, L503.0105, L506.0400, L100.0100 ####[facility] [address] [place], [address] MCV (RBC) [Entitic vol] 79.1 fL Low 80-94 [facility] Comment on above: Performed By: #### L 501.5200, L501.72431, L501.9910, L501.9985, L501.9520, L500.4100, L500.4050, L503.0105, L506.0400, L100.0100 ####[facility] [address] [place], [address] Monocytes/100 WBC (Bld) 11.5 % High 0-10 [facility] Comment on above: Performed By: #### L 501.5200, L501.13140, L501.9910, L501.9985, L501.9520, L500.4100, L500.4050, L503.0105, L506.0400, L100.0100 ####[facility] [address] [place], [address] Neutrophils/100 WBC (Bld) 57.5 % Normal 47-70 [facility] Comment on above: Performed By: #### L 501.5200, L501.97049, L501.9910, L501.9985, L501.9520, L500.4100, L500.4050, L503.0105, L506.0400, L100.0100 ####[facility] [address] [place], [address] Nucleated RBC (Bld) [#/Vol] 0 10*3/uL Normal 0-5 [facility] Comment on above: Performed By: #### L 501.5200, L501.23376, L501.9910, L501.9985, L501.9520, L500.4100, L500.4050, L503.0105, L506.0400, L100.0100 ####[facility] [address] [place], [address] Platelet mean volume (Bld) [Entitic vol] 8.9 fL Normal 6.2-12.0 [facility] Comment on above: Performed By: #### L 501.5200, L501.26790, L501.9910, L501.9985, L501.9520, L500.4100, L500.4050, L503.0105, L506.0400, L100.0100 ####[facility] [address] [place], [address] Platelets (Bld) [#/Vol] 281 10*3/uL Normal 150-450 [facility] Comment on above: Performed By: #### L 501.5200, L501.66595, L501.9910, L501.9985, L501.9520, L500.4100, L500.4050, L503.0105, L506.0400, L100.0100 ####[facility] [address] [place], [place], [phone](981) RBC (Bld) [#/Vol] 4.07 10*6/uL Low 4.6-6.2 [facility] Comment on above: Performed By: #### L 501.5200, L501.10346, L501.9910, L501.9985, L501.9520, L500.4100, L500.4050, L503.0105, L506.0400, L100.0100 ####[facility] [address] [place], [place], [id number] RDW SD 54.7 fl High 35.1-43.9 [facility] Comment on above: Performed By: #### L 501.5200, L501.89461, L501.9910, L501.9985, L501.9520, L500.4100, L500.4050, L503.0105, L506.0400, L100.0100 ####[facility] [address] [place], [place], [phone]) WBC (Bld) [#/Vol] 6.4 10*3/uL Normal 4.4-11.0 [facility] Comment on above: Performed By: #### L 501.5200, L501.62352, L501.9910, L501.9985, L501.9520, L500.4100, L500.4050, L503.0105, L506.0400, L100.0100 ####[facility] [address] [place], [place], [id number] Comprehensive Metabolic Prof ilon 05-09-2024 Albumin [Mass/Vol] 3.8 g/dL Normal 3.2-5.0 [facility] Comment on above: Performed By: #### L 501.5200, L501.82644, L501.9910, L501.9985, L501.9520, L500.4100, L500.4050, L503.0105, L506.0400, L100.0100 ####[facility] [address] [place], [place], [id number] Albumin/Globulin [Mass ratio] 1.2 {ratio} Normal 0.9-2.4 [facility] Comment on above: Performed By: #### L 501.5200, L501.74188, L501.9910, L501.9985, L501.9520, L500.4100, L500.4050, L503.0105, L506.0400, L100.0100 ####[facility] [address] [place], [place], [id number] ALK P 46 U/L Normal 45-117 [facility] Comment on above: Performed By: #### L 501.5200, L501.68659, L501.9910, L501.9985, L501.9520, L500.4100, L500.4050, L503.0105, L506.0400, L100.0100 ####[facility] [address] [place], [place], [id number] ALT [Catalytic activity/Vol] 10 U/L Low 16-61 [facility] Comment on above: Performed By: #### L 501.5200, L501.95134, L501.9910, L501.9985, L501.9520, L500.4100, L500.4050, L503.0105, L506.0400, L100.0100 ####[facility] [address] [place], [place], [address] AST [Catalytic activity/Vol] 6 U/L Low 15-37 [facility] Comment on above: Performed By: #### L 501.5200, L501.17205, L501.9910, L501.9985, L501.9520, L500.4100, L500.4050, L503.0105, L506.0400, L100.0100 ####[facility] [address] [place], [address] Bilirubin [Mass/Vol] 0.70 mg/dL Normal 0.20-1.00 [facility] Comment on above: Result Comment: For patients on eltrombopag therapy, use of Dimension Oriska TBIL is not recommended. Performed By: #### L 501.5200, L501.00309, L501.9910, L501.9985, L501.9520, L500.4100, L500.4050, L503.0105, L506.0400, L100.0100 ####[facility] [address] [place], [place], [phone](594) BUN/CRE 11.9 RATIO Normal 10-20 [facility] Comment on above: Performed By: #### L 501.5200, L501.70632, L501.9910, L501.9985, L501.9520, L500.4100, L500.4050, L503.0105, L506.0400, L100.0100 ####[facility] [address] [place], [address] CA,Total 9.7 mg/dL Normal 8.5-10.1 [facility] Comment on above: Performed By: #### L 501.5200, L501.92141, L501.9910, L501.9985, L501.9520, L500.4100, L500.4050, L503.0105, L506.0400, L100.0100 ####[facility] [address] [place], [address] Chloride [Moles/Vol] 105 mmol/L Normal 98-107 [facility] Comment on above: Performed By: #### L 501.5200, L501.18191, L501.9910, L501.9985, L501.9520, L500.4100, L500.4050, L503.0105, L506.0400, L100.0100 ####[facility] [address] [facility] [phone] CO2 [Moles/Vol] 25.0 mmol/L Normal 21.0-32.0 [facility] Comment on above: Performed By: #### L 501.5200, L501.55106, L501.9910, L501.9985, L501.9520, L500.4100, L500.4050, L503.0105, L506.0400, L100.0100 ####[facility] [address] [place] [phone](124) Creatinine [Mass/Vol] 1.68 mg/dL High 0.70-1.30 [facility] Comment on above: Result Comment: The validity of the calculated GFR GFRAA in patients over70 years has not been determined. Clinical correlation isessential. Performed By: #### L 501.5200, L501.00840, L501.9910, L501.9985, L501.9520, L500.4100, L500.4050, L503.0105, L506.0400, L100.0100 ####[facility] [address] [place], [place], [phone](163) EST GFR - AA 50 mL/min Low >60 [facility] Comment on above: Result Comment: Afri can Cambodian GFR Calc Performed By: #### L 501.5200, L501.52865, L501.9910, L501.9985, L501.9520, L500.4100, L500.4050, L503.0105, L506.0400, L100.0100 ####[facility] [address] [place] [phone] GAP 11 Normal 5-15 [facility] Comment on above: Performed By: #### L 501.5200, L501.67466, L501.9910, L501.9985, L501.9520, L500.4100, L500.4050, L503.0105, L506.0400, L100.0100 ####[facility] [address] [place], [place], [id number] GFR/1.73 sq M.predicted among non-blacks MDRD (S/P/Bld) [Vol rate/Area] 41 mL/min/{1.73_m2} Low >60 [facility] Comment on above: Result Comment: Non- GFR Calc Performed By: #### L 501.5200, L501.65869, L501.9910, L501.9985, L501.9520, L500.4100, L500.4050, L503.0105, L506.0400, L100.0100 ####[facility] [address] [place], [place], [id number] Globulin (S) [Mass/Vol] 3.2 g/dL Normal 2.2-4.2 [facility] Comment on above: Performed By: #### L 501.5200, L501.57996, L501.9910, L501.9985, L501.9520, L500.4100, L500.4050, L503.0105, L506.0400, L100.0100 ####[facility] [address] [place], [place], [phone] Glucose [Mass/Vol] 94 mg/dL Normal 74-106 [facility] Comment on above: Performed By: #### L 501.5200, L501.05105, L501.9910, L501.9985, L501.9520, L500.4100, L500.4050, L503.0105, L506.0400, L100.0100 ####[facility] [address] [place], [address] Potassium [Moles/Vol] 3.4 mmol/L Low 3.5-5.1 [facility] Comment on above: Performed By: #### L 501.5200, L501.60793, L501.9910, L501.9985, L501.9520, L500.4100, L500.4050, L503.0105, L506.0400, L100.0100 ####[facility] [address] [place], [address] Sodium [Moles/Vol] 141 mmol/L Normal 136-145 [facility] Comment on above: Performed By: #### L 501.5200, L501.73666, L501.9910, L501.9985, L501.9520, L500.4100, L500.4050, L503.0105, L506.0400, L100.0100 ####[facility] [address] [place], [address] T PROT 7.0 g/dL Normal 6.4-8.2 [facility] Comment on above: Performed By: #### L 501.5200, L501.18533, L501.9910, L501.9985, L501.9520, L500.4100, L500.4050, L503.0105, L506.0400, L100.0100 ####[facility] [address] [place], [address] Urea nitrogen [Mass/Vol] 20 mg/dL High 7-18 [facility] Comment on above: Performed By: #### L 501.5200, L501.99718, L501.9910, L501.9985, L501.9520, L500.4100, L500.4050, L503.0105, L506.0400, L100.0100 ####[facility] [address] [place], [address] Free T3on 05-09-2024 Free T3 [Mass/Vol] 2.5 pg/mL Normal 2.18-3.98 [facility] Comment on above: Performed By: #### L 501.5200, L501.62151, L501.9910, L501.9985, L501.9520, L500.4100, L500.4050, L503.0105, L506.0400, L100.0100 ####[facility] [address] [place], [address] Hemoglobin A1con 05-09-2024 HbA1c (Bld) [Mass fraction] 6.6 % High 3.8-5.6 [facility] Comment on above: Result Comment: Norm al < 5.7 % Prediabetic 5.7 - 6.4 % Diabetic >or= 6.5 % Please note range changes. Performed By: #### L 501.5200, L501.45146, L501.9910, L501.9985, L501.9520, L500.4100, L500.4050, L503.0105, L506.0400, L100.0100 ####[facility] [address] [place], [address] Iron+Iron Binding Capacityon 05-09-2024 Iron [Mass/Vol] 28 ug/dL Low 65-175 [facility] Comment on above: Performed By: #### L 205.9075 ####[facility] [address] [place], [address] IRON SATURATION 6.2 Low 15.0-55.0 [facility] Comment on above: Performed By: #### L 607.5588 ####[facility] [address] [place], [address] TIBC 454 ug/dL High 250-450 [facility] Comment on above: Performed By: #### L 496.0830 ####[facility] [address] [place], [address] Lipid Profileon 05-09-2024 Cholesterol [Mass/Vol] 143 mg/dL Normal 200 [facility] Comment on above: Result Comment: <200 mg/dL Desirable 200-240 mg/dL Borderline >240 mg/dL High Risk Performed By: #### L 501.5200, L501.23044, L501.9910, L501.9985, L501.9520, L500.4100, L500.4050, L503.0105, L506.0400, L100.0100 ####[facility] [address] [place], [address] Cholesterol in HDL [Mass/Vol] 46 mg/dL Normal [facility] Comment on above: Result Comment: The drugs N-Acetylcysteine and Metamizole may falselydepress this assay. Reference Range HDL <40 mg/dL Low HDL Cholesterol HDL >or= 60 mg/dL High HDL Cholesterol Performed By: #### L 501.5200, L501.06281, L501.9910, L501.9985, L501.9520, L500.4100, L500.4050, L503.0105, L506.0400, L100.0100 ####[facility] [address] [place], [address] Cholesterol in LDL [Mass/Vol] 68 mg/dL Normal 0-130 [facility] Comment on above: Performed By: #### L 501.5200, L501.43395, L501.9910, L501.9985, L501.9520, L500.4100, L500.4050, L503.0105, L506.0400, L100.0100 ####[facility] [address] [place], [address] Cholesterol in VLDL [Mass/Vol] 29 mg/dL Normal 5-40 [facility] Comment on above: Performed By: #### L 501.5200, L501.32774, L501.9910, L501.9985, L501.9520, L500.4100, L500.4050, L503.0105, L506.0400, L100.0100 ####[facility] [address] [place], [place], [phone](661) Triglyceride [Mass/Vol] 144 mg/dL Normal [facility] Comment on above: Result Comment: The drugs N-Acetylcysteine and Metamizole may falselydepress this assay.Serum Triglycerides Reference Interval Normal <150 mg/dL Borderline high 150 - 199 mg/dL High 200 - 499 mg/dL Very High > or = 500 mg/dL Performed By: #### L 501.5200, L501.98709, L501.9910, L501.9985, L501.9520, L500.4100, L500.4050, L503.0105, L506.0400, L100.0100 ####[facility] [address] [place], [place], [id number] Magnesiumon 05-09-2024 Magnesium [Mass/Vol] 1.8 mg/dL Normal 1.6-2.6 [facility] Comment on above: Performed By: #### L 501.5200, L501.17972, L501.9910, L501.9985, L501.9520, L500.4100, L500.4050, L503.0105, L506.0400, L100.0100 ####[facility] [id number] [place], [place], [id number] PSA,Total - Annual Screenon 05-09-2024 PSA,TOT SCREEN 1.04 ng/mL Normal 0.00-4.00 [facility] Comment on above: Result Comment: This test was performed using the TPSA assay method for thePhotobucket chemistry system. Values obtained with differentassay methods cannot be used interchangably.When changing PSA assays in the course of monitoring apatient, additional sequential testing should be carriedout to confirm baseline values. Performed By: #### L 501.5200, L501.02603, L501.9910, L501.9985, L501.9520, L500.4100, L500.4050, L503.0105, L506.0400, L100.0100 ####[facility] [id number] [place], [place], [id number] T4 Free Directon 05-09-2024 T4 FREE DIRECT 0.91 ng/dL Normal 0.76-1.46 [facility] Comment on above: Performed By: #### L 501.5200, L501.12171, L501.9910, L501.9985, L501.9520, L500.4100, L500.4050, L503.0105, L506.0400, L100.0100 ####[facility] [id number] [place], [address] Thyroid Stim Hormone (TSH)on 05-09-2024 TSH 2.880 uIU/mL Normal 0.358-3.740 [facility] Comment on above: Performed By: #### L 501.5200, L501.03069, L501.9910, L501.9985, L501.9520, L500.4100, L500.4050, L503.0105, L506.0400, L100.0100 ####[facility] [id number] [place], [place], [id number] Vitamin B12on 05-09-2024 Cobalamin (Vitamin B12) [Mass/Vol] pg/mL High 211-911 [facility] Comment on above: Performed By: #### L 501.5200, L501.66473, L501.9910, L501.9985, L501.9520, L500.4100, L500.4050, L503.0105, L506.0400, L100.0100 ####[facility] [id number] [place], [address] Office Visit Reporton 2023 [facility] Neurology Visit Report Normal [facility] Pulmonary Visit Reporton Pulmonary Visit Report Normal Wo [facility] Cardiology Visit Reporton Cardiology Visit Report Normal W [facility] MR/BMS.IMBon 03-07-2024 MR/BMS.IMB Normal [facility] [facility] CNOV Office Visit (PODIWS ) OLMAN SYED ([id number]) 1935 M Date Time Provider Department 02/29/24 [...] Objective: Patient presents to clinic ambulating in sneaker Vasc: DP and PT pulses are palpable [...] Barbie Nova DPM Referring Provider: BARBIE NOVA [[id number]] Allergies As of Date: 02/29/2024 Noted Allergy [...] Inhale 2 (more content not included)... Normal [facility] Re-Evaluation - PT (1)on Re-Evaluation - PT (1) Normal [facility] Absolute lymphocyte countOrd ered By: Keron Maciel on 09-22-2023 Lymphocytes Auto (Unsp spec) [#/Vol] 1.66 10*3/uL 0.83-4.51 [facility] Automated lymphocyte count a s percentage of total leukocytesOrdered By: Keron Maciel on 09-22-2023 Lymphocytes/100 WBC Auto (Unsp spec) 20.4 % 19-41 [facility] Basophil percentageOrdered B y: Keron Maciel on 09-22-2023 Basophils/100 WBC (Bld) 0.4 % 0-1 [facility] Bilirubin [Mass/Vol] 0.70 mg/dL 0.20-1.00 [facility] Comment on above: For patients on eltr ombopag therapy, use of Dimension [place] TBIL is not recommended. Chloride [Moles/Vol] 100 mmol/L 98-107 [facility] Cholesterol [Mass/Vol] 154 mg/dL <200 [facility] Comment on above: <200 mg/dL Desirable 200-240 mg/dL Borderline >240 mg/dL High Risk Eosinophils/100 WBC (Bld) 1.0 % 0-5 [facility] Glucose [Mass/Vol] 126 mg/dL 74-106 [facility] Comment on above: Fasting Glucose resu lt greater than or equal to 126 mg/dL suggests DIABETES MELLITUS per A.D.A. criteria. Hemoglobin (Bld) [Mass/Vol] 13.3 g/dL 13.0-16.5 [facility] Monocytes/100 WBC (Bld) 8.7 % 0-10 [facility] Neutrophils (Bld) [#/Vol] 5.5 10*3/uL 2.0-7.7 [facility] Neutrophils/100 WBC (Bld) 67.8 % 47-70 [facility] Potassium [Moles/Vol] 4.5 mmol/L 3.5-5.1 [facility] Protein [Mass/Vol] 7.2 g/dL 6.4-8.2 [facility] Sodium [Moles/Vol] 136 mmol/L 136-145 [facility] Triglyceride [Mass/Vol] 145 mg/dL <199 [facility] Comment on above: The drugs N-Acetylcy steine and Metamizole may falsely depress this assay.Serum Triglycerides Reference Interval Normal <150 mg/dL Borderline high 150 - 199 mg/dL High 200 - 499 mg/dL Very High > or = 500 mg/dL WBC (Bld) [#/Vol] 8.1 10*3/uL 4.4-11.0 [facility] Determination of erythrocyte mean corpuscular volume (MCV)Ordered By: Keron Maciel on 09-22-2023 MCV (RBC) [Entitic vol] 89.0 fL 80-94 [facility] Erythrocyte distribution wid th ratioOrdered By: Keron Maciel on 09-22-2023 Erythrocyte distribution width (RBC) [Ratio] 16.9 % 11.6-14.6 [facility] Erythrocyte distribution wid th standard deviationOrdered By: Keron Maciel on 09-22-2023 Erythrocyte distribution width (RBC) [Entitic vol] 54.4 fL 35.1-43.9 [facility] Hematocrit Auto (Bld) [Volum e fraction]Ordered By: Keron Maciel on 09-22-2023 Hematocrit (Bld) [Volume fraction] 41.1 % 40-54 [facility] Immature granulocytes/100 WB C Auto (Bld)Ordered By: Keron Maciel on 09-22-2023 Immature granulocytes/100 WBC (Bld) 1.700 % 0.0-0.9 [facility] Comment on above: IG% - Immature Granu locytes (promyelocytes, myelocytes and metamyelocytes) > 1% indicates that a LEFT SHIFT is Present. Laboratory - Chemistry and C hemistry - challengeOrdered By: Keron Maciel on 09-22-2023 Albumin/Globulin [Mass ratio] 1.1 {ratio} 0.9-2.4 [facility] ALP [Catalytic activity/Vol] 32 U/L 45-117 [facility] ALT [Catalytic activity/Vol] 8 U/L 16-61 [facility] Cholesterol in HDL [Mass/Vol] 50 mg/dL >40 [facility] Comment on above: The drugs N-Acetylcy steine and Metamizole may falsely depress this assay. Reference Range HDL <40 mg/dL Low HDL Cholesterol HDL >or= 60 mg/dL High HDL Cholesterol Cholesterol in LDL [Mass/Vol] 75 mg/dL 0-130 [facility] CO2 [Moles/Vol] 29.0 mmol/L 21.0-32.0 [facility] Globulin (S) [Mass/Vol] 3.5 g/dL 2.2-4.2 [facility] Urea nitrogen/Creatinine [Mass ratio] 15.0 mg/mg 10-20 [facility] Laboratory - Hematology and Cell countsOrdered By: Keron Maciel on 09-22-2023 MCH (RBC) [Entitic mass] 28.8 pg 27.0-32.0 [facility] MCHC (RBC) [Mass/Vol] 32.4 g/dL 32-36 [facility] Nucleated RBC/100 WBC (Bld) [Ratio] 0 % 0-5 [facility] Platelet mean volume (Bld) [Entitic vol] 9.0 fL 6.2-12.0 [facility] Platelets (Bld) [#/Vol] 255 10*3/uL 150-450 [facility] No Panel InformationOrdered By: Keron Maciel on 09-22-2023 Estimated GFR (MDRD) Amer 44 mL/min >60 [facility] Comment on above: GFR Calc Estimated GFR (MDRD) Non-Af Amer 37 mL/min >60 [facility] Comment on above: Non- GFR Calc Vitamin D 25-Hydroxy 81.7 ng/mL [facility] Comment on above: Vitamin D 25(OH) Sta tus Range Deficiency <20 ng/mL (50nmol/L) Insufficiency 20 - 30 ng/mL (50 - 75 nmol/L) Sufficiency 30 - 100 ng/mL (75 - 250 nmol/L) Toxicity >100 ng/mL (>250 nmol/L) VLDL Cholesterol 29 mg/dL 5-40 [facility] RBC Auto (Bld) [#/Vol]Ordere d By: Keron Maciel on 09-22-2023 RBC (Bld) [#/Vol] 4.62 10*6/uL 4.6-6.2 [facility] Serum or plasma calcium odilon urement (mass/volume)Ordered By: Keron Maciel on 09-22-2023 Calcium [Mass/Vol] 10.0 mg/dL 8.5-10.1 [facility] Serum or plasma creatinine m easurement (mass/volume)Ordered By: Kerno Maciel on 09-22-2023 Creatinine [Mass/Vol] 1.87 mg/dL 0.70-1.30 [facility] Comment on above: The validity of the calculated GFR & GFRAA in patients over 70 years has not been determined. Clinical correlation is essential. Serum or plasma thyroid stim ulating hormone (TSH) measurement (units/volume)Ordered By: Keron Maciel on 09-22-2023 TSH Qn 2.98 uIU/mL 0.358-3.74 [facility] Serum or plasma urea nitroge n measurement (mass/volume)Ordered By: Keron Maciel on 09-22-2023 Urea nitrogen [Mass/Vol] 28 mg/dL 7-18 [facility] Thin prep Papanicolaou smear with manual screeningOrdered By: Keronrichard Maciel on 09-22-2023 Thin prep Papanicolaou smear with manual screening 3.7 g/dL 3.2-5.0 [facility] Thin prep Papanicolaou smear with manual screening 10 U/L 15-37 [facility] Thin prep Papanicolaou smear with manual screening 7 5-15 [facility] Whole blood hemoglobin A1c/t otal hemoglobin ratio (mass fraction)Ordered By: Keron Maciel on 09-22-2023 HbA1c (Bld) [Mass fraction] 6.4 % 3.8-5.6 [facility] Comment on above: Normal < 5.7 % Predi abetic 5.7 - 6.4 % Diabetic >or= 6.5 % Please note range changes. No Panel Informationon 08-10 Influenza Types A,B Rapid (Clinic) Negative [facility] POC SARS CoV-2 Antigen Negative [facility] Absolute lymphocyte countOrd ered By: Junior Duenas on 07-16-2023 Lymphocytes Auto (Unsp spec) [#/Vol] 1.30 10*3/uL 0.83-4.51 [facility] Automated lymphocyte count a s percentage of total leukocytesOrdered By: Junior Duenas on 07-16-2023 Lymphocytes/100 WBC Auto (Unsp spec) 18.3 % 19-41 [facility] Basophil percentageOrdered B y: Junior Duenas on 07-16-2023 Basophils/100 WBC (Bld) 0.8 % 0-1 [facility] Chloride [Moles/Vol] 105 mmol/L 98-107 [facility] Eosinophils/100 WBC (Bld) 3.2 % 0-5 [facility] Glucose [Mass/Vol] 107 mg/dL 74-106 [facility] Comment on above: Fasting Glucose resu lt from 100 to 125 mg/dL suggests IMPAIRED HOMEOSTASIS per A.D.A. criteria. Hemoglobin (Bld) [Mass/Vol] 12.4 g/dL 13.0-16.5 [facility] Monocytes/100 WBC (Bld) 9.9 % 0-10 [facility] Neutrophils (Bld) [#/Vol] 4.8 10*3/uL 2.0-7.7 [facility] Neutrophils/100 WBC (Bld) 67.2 % 47-70 [facility] Potassium [Moles/Vol] 4.6 mmol/L 3.5-5.1 [facility] Sodium [Moles/Vol] 138 mmol/L 136-145 [facility] WBC (Bld) [#/Vol] 7.1 10*3/uL 4.4-11.0 [facility] Determination of erythrocyte mean corpuscular volume (MCV)Ordered By: Junior Duenas on 07-16-2023 MCV (RBC) [Entitic vol] 90.0 fL 80-94 [facility] Erythrocyte distribution wid th ratioOrdered By: Junior Duenas on 07-16-2023 Erythrocyte distribution width (RBC) [Ratio] 15.5 % 11.6-14.6 [facility] Erythrocyte distribution wid th standard deviationOrdered By: Junior Duenas on 07-16-2023 Erythrocyte distribution width (RBC) [Entitic vol] 51.0 fL 35.1-43.9 [facility] Hematocrit Auto (Bld) [Volum e fraction]Ordered By: Junior Duenas on 07-16-2023 Hematocrit (Bld) [Volume fraction] 38.9 % 40-54 [facility] Immature granulocytes/100 WB C Auto (Bld)Ordered By: Junior Duenas on 07-16-2023 Immature granulocytes/100 WBC (Bld) 0.600 % 0.0-0.9 [facility] Comment on above: IG% - Immature Granu locytes (promyelocytes, myelocytes and metamyelocytes) > 1% indicates that a LEFT SHIFT is Present. Laboratory - Chemistry and C hemistry - challengeOrdered By: Junior Duenas on 07-16-2023 CO2 [Moles/Vol] 23.0 mmol/L 21.0-32.0 [facility] Natriuretic peptide B (Bld) [Mass/Vol] 76.2 pg/mL 0-100 [facility] Urea nitrogen/Creatinine [Mass ratio] 15.5 mg/mg 10-20 [facility] Laboratory - Hematology and Cell countsOrdered By: Junior Duenas on 07-16-2023 MCH (RBC) [Entitic mass] 28.7 pg 27.0-32.0 [facility] MCHC (RBC) [Mass/Vol] 31.9 g/dL 32-36 [facility] Nucleated RBC/100 WBC (Bld) [Ratio] 0 % 0-5 [facility] Platelets (Bld) [#/Vol] 269 10*3/uL 150-450 [facility] Laboratory - Microbiology an d Antimicrobial susceptibilityOrdered By: Junior Duenas on 07-16-2023 SARS-CoV-2 (COVID-19) RNA VÍCTOR+probe Ql (Unsp spec) [facility] No Panel InformationOrdered By: Junior Duenas on 07-16-2023 Troponin I High Sensitivity 18 pg/mL 3.0-78.0 [facility] Comment on above: Please Note: New [place] Units and Gender Specific Reference Ranges. For more information see Policy Stat Procedure [place] High Sensitivity Troponin (TNIH) and attachments. D-Dimer Quantitative (PE/DVT) 0.61 FEU/ug/m 0.27-0.49 [facility] Comment on above: D-Dimer ELEVATED (>0 .49): Additional studies and clinicalassessments are indicated to conclude diagnosis of:Deep Vein Thrombosis (DVT) or Pulmonary Embolism (PE)CRITICAL VALUE VERIFIED. CALLED TO JUNIOR DUENAS 07/16/23 Jenna Moncada.RESULTS READ BACK BY SAME . Estimated Creatinine Clearance Calc 29.81 ml/min [facility] Estimated GFR (MDRD) Amer 41 mL/min >60 [facility] Comment on above: GFR Calc Estimated GFR (MDRD) Non-Af Amer 34 mL/min >60 [facility] Comment on above: Non- GFR Calc Platelet mean volume Torey-Ec ker (Bld) [Entitic vol]Ordered By: Junior Duenas on 07-16-2023 Platelet mean volume (Bld) [Entitic vol] 9.1 fL 6.2-12.0 [facility] RBC Auto (Bld) [#/Vol]Ordere d By: Junior Duenas on 07-16-2023 RBC (Bld) [#/Vol] 4.32 10*6/uL 4.6-6.2 [facility] Serum or plasma calcium odilon urement (mass/volume)Ordered By: Junior Duenas on 07-16-2023 Calcium [Mass/Vol] 10.0 mg/dL 8.5-10.1 [facility] Serum or plasma creatinine m easurement (mass/volume)Ordered By: Junior Duenas on 07-16-2023 Creatinine [Mass/Vol] 2.00 mg/dL 0.70-1.30 [facility] Comment on above: The validity of the calculated GFR & GFRAA in patients over 70 years has not been determined. Clinical correlation is essential. Serum or plasma urea nitroge n measurement (mass/volume)Ordered By: Junior Duenas on 07-16-2023 Urea nitrogen [Mass/Vol] 31 mg/dL 7-18 [facility] Thin prep Papanicolaou smear with manual screeningOrdered By: Junior Duenas on 07-16-2023 Thin prep Papanicolaou smear with manual screening 10 5-15 [facility] Absolute lymphocyte countOrd ered By: Dr. Maciel on 09-28-2022 Lymphocytes Auto (Unsp spec) [#/Vol] 1.75 10*3/uL 0.83-4.51 [facility] Basophil percentageOrdered B y: Dr. Maciel on 09-28-2022 Basophils/100 WBC (Bld) 0.7 % 0-1 [facility] Bilirubin [Mass/Vol] 0.60 mg/dL 0.20-1.00 [facility] Comment on above: For patients on eltr ombopag therapy, use of Dimension [place] TBIL is not recommended. Chloride [Moles/Vol] 103 mmol/L 98-107 [facility] Cholesterol [Mass/Vol] 152 mg/dL <200 [facility] Comment on above: <200 mg/dL Desirable 200-240 mg/dL Borderline >240 mg/dL High Risk Eosinophils/100 WBC (Bld) 3.8 % 0-5 [facility] Glucose [Mass/Vol] 61 mg/dL 74-106 [facility] Neutrophils (Bld) [#/Vol] 4.0 10*3/uL 2.0-7.7 [facility] Neutrophils/100 WBC (Bld) 58.5 % 47-70 [facility] Potassium [Moles/Vol] 4.2 mmol/L 3.5-5.1 [facility] Protein [Mass/Vol] 6.9 g/dL 6.4-8.2 [facility] Sodium [Moles/Vol] 137 mmol/L 136-145 [facility] Triglyceride [Mass/Vol] 150 mg/dL <199 [facility] Comment on above: The drugs N-Acetylcy steine and Metamizole may falsely depress this assay.Serum Triglycerides Reference Interval Normal <150 mg/dL Borderline high 150 - 199 mg/dL High 200 - 499 mg/dL Very High > or = 500 mg/dL WBC (Bld) [#/Vol] 6.8 10*3/uL 4.4-11.0 [facility] Blood erythrocytes count (nu mber/volume)Ordered By: Dr. Maciel on 09-28-2022 RBC (Bld) [#/Vol] 4.33 10*6/uL 4.6-6.2 [facility] Blood hemoglobin measurement (mass/volume)Ordered By: Dr. Maciel on 09-28-2022 Hemoglobin (Bld) [Mass/Vol] 12.9 g/dL 13.0-16.5 [facility] Blood lymphocytes/100 leukoc ytesOrdered By: Dr. Maciel on 09-28-2022 Lymphocytes/100 WBC (Bld) 25.8 % 19-41 [facility] Blood monocytes/100 leukocyt esOrdered By: Dr. Maciel on 09-28-2022 Monocytes/100 WBC (Bld) 10.6 % 0-10 [facility] Blood platelet mean volumeOr dered By: Dr. Maciel on 09-28-2022 Platelet mean volume (Bld) [Entitic vol] 9.2 fL 6.2-12.0 [facility] Determination of erythrocyte mean corpuscular volume (MCV)Ordered By: Dr. Maciel on 09-28-2022 MCV (RBC) [Entitic vol] 94.7 fL 80-94 [facility] Hematocrit Auto (Bld) [Volum e fraction]Ordered By: Dr. Maciel on 09-28-2022 Hematocrit (Bld) [Volume fraction] 41.0 % 40-54 [facility] Laboratory - Chemistry and C hemistry - challengeOrdered By: Dr. Maciel on 09-28-2022 ALP [Catalytic activity/Vol] 28 U/L 45-117 [facility] ALT [Catalytic activity/Vol] 10 U/L 16-61 [facility] CO2 [Moles/Vol] 29.0 mmol/L 21.0-32.0 [facility] Free T4 [Mass/Vol] 0.94 ng/dL 0.76-1.46 [facility] Globulin (S) [Mass/Vol] 3.2 g/dL 2.2-4.2 [facility] Magnesium [Mass/Vol] 2.0 mg/dL 1.6-2.6 [facility] Urea nitrogen/Creatinine [Mass ratio] 14.7 mg/mg 10-20 [facility] Laboratory - Hematology and Cell countsOrdered By: Dr. Maciel on 09-28-2022 Erythrocyte distribution width (RBC) [Entitic vol] 55.9 fL 35.1-43.9 [facility] Erythrocyte distribution width (RBC) [Ratio] 15.9 % 11.6-14.6 [facility] Immature granulocytes/100 WBC (Bld) 0.600 % 0.0-0.9 [facility] Comment on above: IG% - Immature Granu locytes (promyelocytes, myelocytes and metamyelocytes) > 1% indicates that a LEFT SHIFT is Present. MCH (RBC) [Entitic mass] 29.8 pg 27.0-32.0 [facility] Nucleated RBC/100 WBC (Bld) [Ratio] 0 % 0-5 [facility] MCHC Auto (RBC) [Mass/Vol]Or dered By: Dr. Maciel on 09-28-2022 MCHC (RBC) [Mass/Vol] 31.5 g/dL 32-36 [facility] No Panel InformationOrdered By: Dr. Maciel on 09-28-2022 D-Dimer Quantitative (PE/DVT) 0.33 FEU/ug/m 0.27-0.49 [facility] Comment on above: NORMAL D-Dimer level (<0.50) indicates no DVT or PE. Estimated GFR (MDRD) Amer 55 mL/min >60 [facility] Comment on above: GFR Calc Estimated GFR (MDRD) Non-Af Amer 45 mL/min >60 [facility] Comment on above: Non- GFR Calc Free Triiodothyronine (T3) pg/dL 2.1 pg/mL 2.18-3.98 [facility] Thyroid Stimulating Hormone (TSH) 2.34 uIU/mL 0.358-3.74 [facility] Platelets bldOrdered By: Dr. Maciel on 09-28-2022 Platelets (Bld) [#/Vol] 276 10*3/uL 150-450 [facility] Serum or plasma albumin odilon urement (mass/volume)Ordered By: Dr. Maciel on 09-28-2022 Albumin [Mass/Vol] 3.7 g/dL 3.2-5.0 [facility] Serum or plasma albumin/glob ulin mass ratioOrdered By: Dr. Maciel on 09-28-2022 Albumin/Globulin [Mass ratio] 1.2 {ratio} 0.9-2.4 [facility] Serum or plasma calcium odilon urement (mass/volume)Ordered By: Dr. Maciel on 09-28-2022 Calcium [Mass/Vol] 9.3 mg/dL 8.5-10.1 [facility] Serum or plasma cholesterol in HDL measurement (mass/volume)Ordered By: Dr. Maciel on 09-28-2022 Cholesterol in HDL [Mass/Vol] 57 mg/dL >40 [facility] Comment on above: The drugs N-Acetylcy steine and Metamizole may falsely depress this assay. Reference Range HDL <40 mg/dL Low HDL Cholesterol HDL >or= 60 mg/dL High HDL Cholesterol Serum or plasma cholesterol in VLDL measurement (mass/volume)Ordered By: Dr. Maciel on 09-28-2022 Cholesterol in VLDL [Mass/Vol] 30 mg/dL 5-40 [facility] Serum or plasma creatinine m easurement (mass/volume)Ordered By: Dr. Maciel on 09-28-2022 Creatinine [Mass/Vol] 1.56 mg/dL 0.70-1.30 [facility] Comment on above: The validity of the calculated GFR & GFRAA in patients over 70 years has not been determined. Clinical correlation is essential. Serum or plasma low density lipoprotein (LDL) cholesterol measurement (mass/volume)Ordered By: Dr. Maciel on 09-28-2022 Cholesterol in LDL [Mass/Vol] 65 mg/dL 0-130 [facility] Serum or plasma urea nitroge n measurement (mass/volume)Ordered By: Dr. Maciel on 09-28-2022 Urea nitrogen [Mass/Vol] 23 mg/dL 7-18 [facility] Thin prep Papanicolaou smear with manual screeningOrdered By: Dr. Maciel on 09-28-2022 Thin prep Papanicolaou smear with manual screening 20 U/L 15-37 [facility] Thin prep Papanicolaou smear with manual screening 5 5-15 [facility] Whole blood hemoglobin A1c/t otal hemoglobin ratio (mass fraction)Ordered By: Dr. Maciel on 09-28-2022 HbA1c (Bld) [Mass fraction] 6.3 % 3.8-5.6 [facility] Comment on above: Normal < 5.7 % Predi abetic 5.7 - 6.4 % Diabetic >or= 6.5 % Please note range changes. Basophil percentageon 2021 Chloride [Moles/Vol] 101 mmol/L 98-107 [facility] Work Phone: Glucose [Mass/Vol] 182 mg/dL 74-106 [facility] Work Phone: Comment on above: Fasting Glucose resu lt greater than or equal to 126 mg/dL suggests DIABETES MELLITUS per A.D.A. criteria. Potassium [Moles/Vol] 4.2 mmol/L 3.5-5.1 [facility] Work Phone: Sodium [Moles/Vol] 143 mmol/L 136-145 [facility] Work Phone: [phone] Iron measurement (mass/mass) on 03-03-2022 Iron (Unsp spec) [Mass/Mass] 215 ug/dL 65-175 [facility] Work Phone: Laboratory - Chemistry and C hemistry - challengeon 03-03-2022 CO2 [Moles/Vol] 30.0 mmol/L 21.0-32.0 [facility] Work Phone: Urea nitrogen/Creatinine [Mass ratio] 12.4 mg/mg 10-20 [facility] Work Phone: No Panel Informationon 03-03 Estimated GFR (MDRD) Amer 53 mL/min >60 [facility] Work Phone: Comment on above: GFR Calc Estimated GFR (MDRD) Non-Af Amer 44 mL/min >60 [facility] Work Phone: Comment on above: Non- GFR Calc Total Iron Binding Capacity 430 ug/dL 250-450 [facility] Work Phone: [phone] Serum or plasma calcium odilon urement (mass/volume)on 03-03-2022 Calcium [Mass/Vol] 9.7 mg/dL 8.5-10.1 [facility] Work Phone: [phone] Serum or plasma creatinine m easurement (mass/volume)on 03-03-2022 Creatinine [Mass/Vol] 1.61 mg/dL 0.70-1.30 [facility] Work Phone: Comment on above: The validity of the calculated GFR & GFRAA in patients over 70 years has not been determined. Clinical correlation is essential. Serum or plasma iron saturat ion measurement (mass fraction)on 03-03-2022 Iron saturation [Mass fraction] 50.0 % 15.0-55.0 [facility] Work Phone: [phone] Serum or plasma urea nitroge n measurement (mass/volume)on 03-03-2022 Urea nitrogen [Mass/Vol] 20 mg/dL 7-18 [facility] Work Phone: Thin prep Papanicolaou smear with manual screeningon 03-03-2022 Thin prep Papanicolaou smear with manual screening 12 5-15 [facility] Work Phone: Absolute lymphocyte counton 02-16-2022 Lymphocytes Auto (Unsp spec) [#/Vol] 1.20 10*3/uL 0.83-4.51 [facility] Work Phone: Basophil percentageon 2021 Basophils/100 WBC (Bld) 0.9 % 0-1 [facility] Work Phone: Bilirubin [Mass/Vol] 0.70 mg/dL 0.20-1.00 [facility] Work Phone: Comment on above: For patients on eltr ombopag therapy, use of Dimension [place] TBIL is not recommended. Chloride [Moles/Vol] 103 mmol/L 98-107 [facility] Work Phone: Eosinophils/100 WBC (Bld) 3.2 % 0-5 [facility] Work Phone: Glucose [Mass/Vol] 133 mg/dL 74-106 [facility] Work Phone: Comment on above: Fasting Glucose resu lt greater than or equal to 126 mg/dL suggests DIABETES MELLITUS per A.D.A. criteria. Neutrophils (Bld) [#/Vol] 3.3 10*3/uL 2.0-7.7 [facility] Work Phone: Neutrophils/100 WBC (Bld) 61.6 % 47-70 [facility] Work Phone: Potassium [Moles/Vol] 5.5 mmol/L 3.5-5.1 [facility] Work Phone: Comment on above: Moderate Hemolysis, Result may be falsely increased. Protein [Mass/Vol] 7.1 g/dL 6.4-8.2 [facility] Work Phone: Sodium [Moles/Vol] 139 mmol/L 136-145 [facility] Work Phone: [phone] WBC (Bld) [#/Vol] 5.4 10*3/uL 4.4-11.0 [facility] Work Phone: [phone] Blood erythrocytes count (nu mber/volume)on 02-16-2022 RBC (Bld) [#/Vol] 3.85 10*6/uL 4.6-6.2 [facility] Work Phone: [phone] Blood hemoglobin measurement (mass/volume)on 02-16-2022 Hemoglobin (Bld) [Mass/Vol] 11.1 g/dL 13.0-16.5 [facility] Work Phone: [phone] Blood lymphocytes/100 leukoc yteson 02-16-2022 Lymphocytes/100 WBC (Bld) 22.4 % 19-41 [facility] Work Phone: [phone] Blood monocytes/100 leukocyt eson 02-16-2022 Monocytes/100 WBC (Bld) 11.2 % 0-10 [facility] Work Phone: [phone] Blood platelet mean volumeon 02-16-2022 Platelet mean volume (Bld) [Entitic vol] 9.1 fL 6.2-12.0 [facility] Work Phone: [phone] Determination of erythrocyte mean corpuscular volume (MCV)on 02-16-2022 MCV (RBC) [Entitic vol] 89.9 fL 80-94 [facility] Work Phone: [phone] Hematocrit Auto (Bld) [Volum e fraction]on 02-16-2022 Hematocrit (Bld) [Volume fraction] 34.6 % 40-54 [facility] Work Phone: [phone] Iron measurement (mass/mass) on 02-16-2022 Iron (Unsp spec) [Mass/Mass] 63 ug/dL 65-175 [facility] Work Phone: [phone] Comment on above: Moderate Hemolysis, Result may be falsely increased. Laboratory - Chemistry and C hemistry - challengeon 02-16-2022 ALP [Catalytic activity/Vol] 26 U/L 45-117 [facility] Work Phone: [phone] ALT [Catalytic activity/Vol] 16 U/L 16-61 [facility] Work Phone: [phone] CO2 [Moles/Vol] 27.0 mmol/L 21.0-32.0 [facility] Work Phone: [phone] Free T4 [Mass/Vol] 0.90 ng/dL 0.76-1.46 [facility]: [phone] Globulin (S) [Mass/Vol] 3.4 g/dL 2.2-4.2 [facility] Work Phone: [phone] Urea nitrogen/Creatinine [Mass ratio] 13.3 mg/mg 10-20 [facility] Work Phone: [phone] Laboratory - Hematology and Cell countson 02-16-2022 Erythrocyte distribution width (RBC) [Entitic vol] 57.6 fL 35.1-43.9 [facility] Work Phone: [phone] Erythrocyte distribution width (RBC) [Ratio] 17.4 % 11.6-14.6 [facility] Work Phone: [phone] Immature granulocytes/100 WBC (Bld) 0.700 % 0.0-0.9 [facility] Work Phone: [phone] Comment on above: IG% - Immature Granu locytes (promyelocytes, myelocytes and metamyelocytes) > 1% indicates that a LEFT SHIFT is Present. MCH (RBC) [Entitic mass] 28.8 pg 27.0-32.0 [facility] Work Phone: [phone] Nucleated RBC/100 WBC (Bld) [Ratio] 0 % 0-5 [facility] Work Phone: [phone] MCHC Auto (RBC) [Mass/Vol]on 02-16-2022 MCHC (RBC) [Mass/Vol] 32.1 g/dL 32-36 [facility] Work Phone: [phone] Panel Informationon 02-16 Estimated GFR (MDRD) Amer 46 mL/min >60 [facility] Work Phone: Comment on above: GFR Calc Estimated GFR (MDRD) Non-Af Amer 38 mL/min >60 [facility] Work Phone: [phone] Comment on above: Non- GFR Calc Free Triiodothyronine (T3) pg/dL 2.5 pg/mL 2.18-3.98 [facility] Work Phone: [phone] Prostate Specific Antigen Screen 1.22 ng/mL 0.00-4.00 [facility] Work Phone: [phone] Comment on above: This test was perfor med using the TPSA assay method for [employer] chemistry system. Values obtained with differentassay methods cannot be used interchangably.When changing PSA assays in the course of monitoring apatient, additional sequential testing should be carriedout to confirm baseline values. Thyroid Stimulating Hormone (TSH) 2.23 uIU/mL 0.358-3.74 [facility] Work Phone: [phone] Total Iron Binding Capacity 454 ug/dL 250-450 [facility] Work Phone: [phone] Comment on above: Moderate Hemolysis, Result may be falsely increased. Vitamin D 25-Hydroxy 59.5 ng/mL [facility] Work Phone: [phone] Comment on above: Vitamin D 25(OH) Sta tus Range Deficiency <20 ng/mL (50nmol/L) Insufficiency 20 - 30 ng/mL (50 - 75 nmol/L) Sufficiency 30 - 100 ng/mL (75 - 250 nmol/L) Toxicity >100 ng/mL (>250 nmol/L) Platelets bldon 02-16-2022 Platelets (Bld) [#/Vol] 289 10*3/uL 150-450 [facility] Work Phone: [phone] Serum or plasma albumin odilon urement (mass/volume)on 02-16-2022 Albumin [Mass/Vol] 3.7 g/dL 3.2-5.0 [facility] Work Phone: [phone] Serum or plasma albumin/glob ulin mass ratioon 02-16-2022 Albumin/Globulin [Mass ratio] 1.1 {ratio} 0.9-2.4 [facility] Work Phone: Serum or plasma calcium odilon urement (mass/volume)on 02-16-2022 Calcium [Mass/Vol] 10.0 mg/dL 8.5-10.1 [facility] Work Phone: Serum or plasma creatinine m easurement (mass/volume)on 02-16-2022 Creatinine [Mass/Vol] 1.80 mg/dL 0.70-1.30 [facility] Work Phone: Comment on above: The validity of the calculated GFR & GFRAA in patients over 70 years has not been determined. Clinical correlation is essential. Serum or plasma iron saturat ion measurement (mass fraction)on 02-16-2022 Iron saturation [Mass fraction] 13.9 % 15.0-55.0 [facility] Work Phone: Serum or plasma urea nitroge n measurement (mass/volume)on 02-16-2022 Urea nitrogen [Mass/Vol] 24 mg/dL 7-18 [facility] Work Phone: [phone] Thin prep Papanicolaou smear with manual screeningon 02-16-2022 Thin prep Papanicolaou smear with manual screening 30 U/L 15-37 [facility] Work Phone: Comment on above: Moderate Hemolysis, Result may be falsely increased. Thin prep Papanicolaou smear with manual screening 9 5-15 [facility] Work Phone: [phone] Laboratory - Hematology and Cell countson 02-14-2022 HbA1c (Bld) [Mass fraction] 6.3 % 4.2-6.3 [facility] Work Phone: [phone] Absolute lymphocyte counton 10-26-2021 Lymphocytes Auto (Unsp spec) [#/Vol] 1.47 10*3/uL 0.83-4.51 [facility] Work Phone: [phone] Basophil percentageon 2021 Basophils/100 WBC (Bld) 0.7 % 0-1 [facility] Work Phone: [phone] Chloride [Moles/Vol] 103 mmol/L 98-107 [facility] Work Phone: Eosinophils/100 WBC (Bld) 3.4 % 0-5 [facility] Work Phone: Glucose [Mass/Vol] 109 mg/dL 74-106 [facility] Work Phone: Comment on above: Fasting Glucose resu lt from 100 to 125 mg/dL suggests IMPAIRED HOMEOSTASIS per A.D.A. criteria. Neutrophils (Bld) [#/Vol] 3.3 10*3/uL 2.0-7.7 [facility] Work Phone: Neutrophils/100 WBC (Bld) 58.1 % 47-70 [facility] Work Phone: Potassium [Moles/Vol] 4.7 mmol/L 3.5-5.1 [facility] Work Phone: Sodium [Moles/Vol] 138 mmol/L 136-145 [facility] Work Phone: WBC (Bld) [#/Vol] 5.6 10*3/uL 4.4-11.0 [facility] Work Phone: Blood erythrocytes count (nu mber/volume)on 10-26-2021 RBC (Bld) [#/Vol] 4.32 10*6/uL 4.6-6.2 [facility] Work Phone: Blood hemoglobin measurement (mass/volume)on 10-26-2021 Hemoglobin (Bld) [Mass/Vol] 11.6 g/dL 13.0-16.5 [facility] Work Phone: Blood lymphocytes/100 leukoc yteson 10-26-2021 Lymphocytes/100 WBC (Bld) 26.1 % 19-41 [facility] Work Phone: Blood monocytes/100 leukocyt eson 10-26-2021 Monocytes/100 WBC (Bld) 11.0 % 0-10 [facility] Work Phone: Blood platelet mean volumeon 10-26-2021 Platelet mean volume (Bld) [Entitic vol] 9.3 fL 6.2-12.0 [facility] Work Phone: [phone] Determination of erythrocyte mean corpuscular volume (MCV)on 10-26-2021 MCV (RBC) [Entitic vol] 86.1 fL 80-94 [facility] Work Phone: [phone] Hematocrit Auto (Bld) [Volum e fraction]on 10-26-2021 Hematocrit (Bld) [Volume fraction] 37.2 % 40-54 [facility] Work Phone: [phone] Laboratory - Chemistry and C hemistry - challengeon 10-26-2021 CO2 [Moles/Vol] 28.0 mmol/L 21.0-32.0 [facility] Work Phone: [phone] Natriuretic peptide B (Bld) [Mass/Vol] 98.4 pg/mL 0-100 [facility] Work Phone: [phone] Urea nitrogen/Creatinine [Mass ratio] 14.4 mg/mg 10-20 [facility] Work Phone: [phone] Laboratory - Hematology and Cell countson 10-26-2021 Erythrocyte distribution width (RBC) [Entitic vol] 50.3 fL 35.1-43.9 [facility] Work Phone: [phone] Erythrocyte distribution width (RBC) [Ratio] 16.2 % 11.6-14.6 [facility] Work Phone: [phone] Immature granulocytes/100 WBC (Bld) 0.700 % 0.0-0.9 [facility] Work Phone: [phone] Comment on above: IG% - Immature Granu locytes (promyelocytes, myelocytes and metamyelocytes) > 1% indicates that a LEFT SHIFT is Present. MCH (RBC) [Entitic mass] 26.9 pg 27.0-32.0 [facility] Work Phone: [phone] Nucleated RBC/100 WBC (Bld) [Ratio] 0 % 0-5 [facility] Work Phone: [phone] MCHC Auto (RBC) [Mass/Vol]on 10-26-2021 MCHC (RBC) [Mass/Vol] 31.2 g/dL 32-36 [facility] Work Phone: No Panel Informationon 10-26 Estimated GFR (MDRD) Amer 56 mL/min >60 [facility] Work Phone: Comment on above: GFR Calc Estimated GFR (MDRD) Non-Af Amer 46 mL/min >60 [facility] Work Phone: Comment on above: Non- GFR Calc Platelets bldon 10-26-2021 Platelets (Bld) [#/Vol] 259 10*3/uL 150-450 [facility] Work Phone: Serum or plasma calcium odilon urement (mass/volume)on 10-26-2021 Calcium [Mass/Vol] 10.1 mg/dL 8.5-10.1 [facility] Work Phone: Serum or plasma creatinine m easurement (mass/volume)on 10-26-2021 Creatinine [Mass/Vol] 1.53 mg/dL 0.70-1.30 [facility] Work Phone: Comment on above: The validity of the calculated GFR & GFRAA in patients over 70 years has not been determined. Clinical correlation is essential. Serum or plasma urea nitroge n measurement (mass/volume)on 10-26-2021 Urea nitrogen [Mass/Vol] 22 mg/dL 7-18 [facility] Work Phone: [phone] Thin prep Papanicolaou smear with manual screeningon 10-26-2021 Thin prep Papanicolaou smear with manual screening 7 5-15 [facility] Work Phone: [phone] Absolute lymphocyte counton 10-13-2021 Lymphocytes Auto (Unsp spec) [#/Vol] 0.99 10*3/uL 0.83-4.51 [facility] Work Phone: Basophil percentageon 2021 Basophils/100 WBC (Bld) 0.9 % 0-1 [facility] Work Phone: [phone] Bilirubin [Mass/Vol] 0.70 mg/dL 0.20-1.00 [facility] Work Phone: [phone] Comment on above: For patients on eltr ombopag therapy, use of Dimension [place] TBIL is not recommended. Chloride [Moles/Vol] 102 mmol/L 98-107 [facility] Work Phone: Cholesterol [Mass/Vol] 169 mg/dL <200 [facility] Work Phone: Comment on above: <200 mg/dL Desirable 200-240 mg/dL Borderline >240 mg/dL High Risk Eosinophils/100 WBC (Bld) 3.1 % 0-5 [facility] Work Phone: Glucose [Mass/Vol] 144 mg/dL 74-106 [facility] Work Phone: Comment on above: Fasting Glucose resu lt greater than or equal to 126 mg/dL suggests DIABETES MELLITUS per A.D.A. criteria. Neutrophils (Bld) [#/Vol] 2.9 10*3/uL 2.0-7.7 [facility] Work Phone: Neutrophils/100 WBC (Bld) 62.2 % 47-70 [facility] Work Phone: Potassium [Moles/Vol] 4.2 mmol/L 3.5-5.1 [facility] Work Phone: Protein [Mass/Vol] 7.1 g/dL 6.4-8.2 [facility] Work Phone: Sodium [Moles/Vol] 137 mmol/L 136-145 [facility] Work Phone: Triglyceride [Mass/Vol] 247 mg/dL <199 [facility] Work Phone: Comment on above: The drugs N-Acetylcy steine and Metamizole may falsely depress this assay.Serum Triglycerides Reference Interval Normal <150 mg/dL Borderline high 150 - 199 mg/dL High 200 - 499 mg/dL Very High > or = 500 mg/dL WBC (Bld) [#/Vol] 4.6 10*3/uL 4.4-11.0 [facility] Work Phone: Blood erythrocytes count (nu mber/volume)on 10-13-2021 RBC (Bld) [#/Vol] 4.18 10*6/uL 4.6-6.2 [facility] Work Phone: Blood hemoglobin measurement (mass/volume)on 10-13-2021 Hemoglobin (Bld) [Mass/Vol] 11.2 g/dL 13.0-16.5 [facility] Work Phone: [phone] Blood lymphocytes/100 leukoc yteson 10-13-2021 Lymphocytes/100 WBC (Bld) 21.6 % 19-41 [facility] Work Phone: [phone] Blood monocytes/100 leukocyt eson 10-13-2021 Monocytes/100 WBC (Bld) 11.5 % 0-10 [facility] Work Phone: [phone] Blood platelet mean volumeon 10-13-2021 Platelet mean volume (Bld) [Entitic vol] 10.5 fL 6.2-12.0 [facility] Work Phone: Determination of erythrocyte mean corpuscular volume (MCV)on 10-13-2021 MCV (RBC) [Entitic vol] 86.4 fL 80-94 [facility] Work Phone: Hematocrit Auto (Bld) [Volum e fraction]on 10-13-2021 Hematocrit (Bld) [Volume fraction] 36.1 % 40-54 [facility] Work Phone: Laboratory - Chemistry and C hemistry - challengeon 10-13-2021 ALP [Catalytic activity/Vol] 27 U/L 45-117 [facility] Work Phone: [phone] ALT [Catalytic activity/Vol] 21 U/L 16-61 [facility] Work Phone: [phone] CO2 [Moles/Vol] 28.0 mmol/L 21.0-32.0 [facility] Work Phone: Cobalamin (Vitamin B12) [Mass/Vol] 891 pg/mL 211-911 [facility] Work Phone: Free T4 [Mass/Vol] 0.93 ng/dL 0.76-1.46 [facility] Work Phone: [phone] Globulin (S) [Mass/Vol] 3.4 g/dL 2.2-4.2 [facility] Work Phone: [phone] Urea nitrogen/Creatinine [Mass ratio] 15.2 mg/mg 10-20 [facility] Work Phone: Laboratory - Hematology and Cell countson 10-13-2021 Erythrocyte distribution width (RBC) [Entitic vol] 49.8 fL 35.1-43.9 [facility] Work Phone: [phone] Erythrocyte distribution width (RBC) [Ratio] 15.8 % 11.6-14.6 [facility] Work Phone: [phone] Immature granulocytes/100 WBC (Bld) 0.700 % 0.0-0.9 [facility] Work Phone: [phone] Comment on above: IG% - Immature Granu locytes (promyelocytes, myelocytes and metamyelocytes) > 1% indicates that a LEFT SHIFT is Present. MCH (RBC) [Entitic mass] 26.8 pg 27.0-32.0 [facility] Work Phone: [phone] Nucleated RBC/100 WBC (Bld) [Ratio] 0 % 0-5 [facility] Work Phone: [phone] MCHC Auto (RBC) [Mass/Vol]on 10-13-2021 MCHC (RBC) [Mass/Vol] 31.0 g/dL 32-36 [facility] Work Phone: No Panel Informationon 10-13 Estimated GFR (MDRD) Amer 63 mL/min >60 [facility] Work Phone: [phone] Comment on above: GFR Calc Estimated GFR (MDRD) Non-Af Amer 52 mL/min >60 [facility] Work Phone: [phone] Comment on above: Non- GFR Calc Free Triiodothyronine (T3) pg/dL 2.2 pg/mL 2.18-3.98 [facility] Work Phone: Thyroid Stimulating Hormone (TSH) 2.15 uIU/mL 0.358-3.74 [facility] Work Phone: [phone] Vitamin D 25-Hydroxy 67.7 ng/mL [facility] Work Phone: Comment on above: Vitamin D 25(OH) Sta tus Range Deficiency <20 ng/mL (50nmol/L) Insufficiency 20 - 30 ng/mL (50 - 75 nmol/L) Sufficiency 30 - 100 ng/mL (75 - 250 nmol/L) Toxicity >100 ng/mL (>250 nmol/L) Platelets bldon 10-13-2021 Platelets (Bld) [#/Vol] 238 10*3/uL 150-450 [facility] Work Phone: [phone] Serum or plasma albumin odilon urement (mass/volume)on 10-13-2021 Albumin [Mass/Vol] 3.7 g/dL 3.2-5.0 [facility] Work Phone: [phone] Serum or plasma albumin/glob ulin mass ratioon 10-13-2021 Albumin/Globulin [Mass ratio] 1.1 {ratio} 0.9-2.4 [facility] Work Phone: [phone] Serum or plasma calcium odilon urement (mass/volume)on 10-13-2021 Calcium [Mass/Vol] 9.5 mg/dL 8.5-10.1 [facility] Work Phone: [phone] Serum or plasma cholesterol in HDL measurement (mass/volume)on 10-13-2021 Cholesterol in HDL [Mass/Vol] 41 mg/dL >40 [facility] Work Phone: Comment on above: The drugs N-Acetylcy steine and Metamizole may falsely depress this assay. Reference Range HDL <40 mg/dL Low HDL Cholesterol HDL >or= 60 mg/dL High HDL Cholesterol Serum or plasma cholesterol in VLDL measurement (mass/volume)on 10-13-2021 Cholesterol in VLDL [Mass/Vol] 49 mg/dL 5-40 [facility] Work Phone: Serum or plasma creatinine m easurement (mass/volume)on 10-13-2021 Creatinine [Mass/Vol] 1.38 mg/dL 0.70-1.30 [facility] Work Phone: Comment on above: The validity of the calculated GFR & GFRAA in patients over 70 years has not been determined. Clinical correlation is essential. Serum or plasma low density lipoprotein (LDL) cholesterol measurement (mass/volume)on 10-13-2021 Cholesterol in LDL [Mass/Vol] 79 mg/dL 0-130 [facility] Work Phone: Serum or plasma urea nitroge n measurement (mass/volume)on 10-13-2021 Urea nitrogen [Mass/Vol] 21 mg/dL 7-18 [facility] Work Phone: Thin prep Papanicolaou smear with manual screeningon 10-13-2021 Thin prep Papanicolaou smear with manual screening 17 U/L 15-37 [facility] Work Phone: Thin prep Papanicolaou smear with manual screening 7 5-15 [facility] Work Phone: Laboratory - Hematology and Cell countson 09-07-2021 HbA1c (Bld) [Mass fraction] 7.7 % [facility] Work Phone: Laboratory - Chemistry and C hemistry - challengeon 06-22-2021 Cobalamin (Vitamin B12) [Mass/Vol] 717 pg/mL 211-911 [facility] Work Phone: Office Visit: abdominal pain on 05-09-2017 Documentation of current medications (procedure) Done Invalid Interpretation Code [facility] [employer] Work Phone: Fall risk assessment No Invalid Interpretation Code [facility] [employer] Work Phone: Tobacco smoking status NHIS Never Invalid Interpretation Code [facility] [employer] Work Phone: Tobacco use CPHS Former smoker Invalid Interpretation Code [facility] [employer] Work Phone: Lab Report: BNP,B-Type NATRI URETIC PEPTIDEon 01-20-2017 BNP 20.0 pg/mL Invalid Interpretation Code 0-100 [facility] [employer] Work Phone: Lab Report: Basic Metabolic Profile (BMP)on 01-20-2017 Anion gap 7 mmol/L Invalid Interpretation Code 5-15 [facility] Work Phone: BUN/Creatinine Ratio 14.6 RATIO Invalid Interpretation Code 10-20 [facility] Work Phone: Calcium 10.0 mg/dL Invalid Interpretation Code 8.5-10.1 [facility] [employer] Work Phone: [phone] Chloride 101 mmol/L Invalid Interpretation Code 98-107 [facility] [employer] Work Phone: [phone] CO2 30.0 mmol/L Invalid Interpretation Code 21.0-32.0 [facility] [employer] Work Phone: Creatinine 1.30 mg/dL Invalid Interpretation Code 0.70-1.30 [facility] [employer] Work Phone: eGFR (non-black) 68 mL/min/{1.73_m2} Invalid Interpretation Code >60 [facility] [employer] Work Phone: [phone] eGFR (non-black) 57 mL/min/{1.73_m2} Low >60 [facility] [employer] Work Phone: Glucose mass conc 110 mg/dL Invalid Interpretation Code 70-110 [facility] Work Phone: Potassium molar conc 4.5 mmol/L Invalid Interpretation Code 3.5-5.1 [facility] [employer] Work Phone: Sodium 138 mmol/L Invalid Interpretation Code 136-145 [facility] Work Phone: Urea nitrogen 19 mg/dL High 7-18 [facility] Work Phone: Lab Report: CBC W/Diff, Auto matedon 01-20-2017 Absolute Neut 3.3 X10 3/UL Invalid Interpretation Code 2.0-7.7 [facility] [employer] Work Phone: Basophils/100 WBC Auto (Bld) 1.0 % Invalid Interpretation Code 0-1 [facility] [employer] Work Phone: Eosinophils/100 leukocytes 5.6 % High 0-5 [facility] Work Phone: Erythrocyte distribution width Auto Ratio (RBC) 13.9 % Invalid Interpretation Code 11.6-14.6 [facility] [employer] Work Phone: [phone] Erythrocytes (RBC) 4.45 10*6/uL Low 4.6-6.2 [facility] [employer] Work Phone: [phone] Hematocrit (HCT) 42.4 % Invalid Interpretation Code 40-54 [facility] [employer] Work Phone: [phone] Hemoglobin mass conc (Bld) 14.0 g/dL Invalid Interpretation Code 13.0-16.5 [facility] [employer] Work Phone: [phone] Immature granulocytes/100 WBC (Bld) 0.700 % Invalid Interpretation Code 0.0-0.9 [facility] [employer] Work Phone: [phone] Lymphocytes 1.55 X10 3/UL Invalid Interpretation Code 0.83-4.51 [facility] [employer] Work Phone: [phone] Lymphocytes/100 leukocytes 27.1 % Invalid Interpretation Code 19-41 [facility] [employer] Work Phone: [phone] MCH 31.5 pg Invalid Interpretation Code 27.0-32.0 [facility] [employer] Work Phone: [phone] MCHC mass conc (RBC) 33.0 G/GL Invalid Interpretation Code 32-36 [facility] [employer] Work Phone: MCV 95.3 fL High 80-94 [facility] [employer] Work Phone: [phone] Monocytes/100 leukocytes 7.5 % Invalid Interpretation Code 0-10 [facility] [employer] Work Phone: [phone] Neutrophils/100 WBC Auto (Bld) 58.1 % Invalid Interpretation Code 47-70 [facility] [employer] Work Phone: [phone] Platelets 185 10*3/mm3 Invalid Interpretation Code 150-450 [facility] [employer] Work Phone: PMV by Ismael 9.8 fL Invalid Interpretation Code 6.2-12.0 [facility] [employer] Work Phone: RDW SD 48.2 fL High 35.1-43.9 [facility] [employer] Work Phone: WBC (Leukocytes) 5.7 10*3/uL Invalid Interpretation Code 4.4-11.0 [facility] [employer] Work Phone: Clinical 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 Left ventricular Ejection fraction 55 % Invalid Interpretation Code [facility] [employer] Work Phone: Lab Report: Ferritinon 03-21 Ferritin 7 ng/mL Low 26-388 [facility] [employer] Work Phone: Lab Report: Iron+Iron Bindin g Capacityon 03-21-2016 Iron 24 ug/dL Low 65-175 [facility] [employer] Work Phone: iron binding capacity, total 512 ug/dL High 250-450 [facility] [employer] Work Phone: iron saturation percent, serum 4.7 % Low 15.0-55.0 [facility] [employer] Work Phone: Lab Report: Retic Panelon RET-HE 22.4 pg Low 30-35 [facility] [employer] Work Phone: Reticulocytes/100 erythrocytes 1.25 % Invalid Interpretation Code 0.5-1.5 [facility] [employer] Work Phone: Replaced Document: Midmark E CG Observationson 03-08-2016 BUN (urea nitrogen) Sinus Rhythm -Right bundle branch block. ABNORMAL Invalid Interpretation Code [facility] [employer] Work Phone: EKG QRS axis -12 deg Invalid Interpretation Code [facility] [employer] Work Phone: P [place] 40 deg Invalid Interpretation Code [facility] [employer] Work Phone: FL Interval 138 ms Invalid Interpretation Code [facility] [employer] Work Phone: Pulse (Heart Rate) 76 /min Invalid Interpretation Code [facility] [employer] Work Phone: QRS Duration 136 ms Invalid Interpretation Code [facility] [employer] Work Phone: QT Interval new path ms Invalid Interpretation Code [facility] [employer] Work Phone: T [place] -1 deg Invalid Interpretation Code [facility] [employer] Work Phone: Lab Report: Lipid Profileon 10-19-2015 Cholesterol 140 mg/dL Invalid Interpretation Code 200 [facility] [employer] Work Phone: HDL Cholesterol 35 mg/dL Low [facility] Work Phone: [phone] LDL Cholesterol 72 mg/dL Invalid Interpretation Code 0-130 [facility] Work Phone: [phone] Triglyceride 163 mg/dL Invalid Interpretation Code [facility] Work Phone: very low density lipoproteins 33 mg/dL Invalid Interpretation Code 5-40 [facility] Work Phone: Lab Report: Liver Profileon 10-19-2015 Alanine aminotransferase (ALT) 38 U/L Invalid Interpretation Code 12-78 [facility] Work Phone: Albumin 3.9 g/dL Invalid Interpretation Code 3.4-5.0 [facility] Work Phone: Alkaline phosphatase (ALP) 37 U/L Low 50-136 [facility] Work Phone: Aspartate aminotransferase (AST) 30 U/L Invalid Interpretation Code 15-37 [facility] Work Phone: Bilirubin (direct) 0.14 mg/dL Invalid Interpretation Code 0.00-0.30 [facility] Work Phone: Bilirubin (total) 0.60 mg/dL Invalid Interpretation Code 0.20-1.00 [facility] Work Phone: Globulin 3.1 g/dL Invalid Interpretation Code 2.3-3.5 [facility] Work Phone: Protein 7.0 g/dL Invalid Interpretation Code 6.4-8.2 [facility] Work Phone: Office Visit: [facility] 08-27-19 16 Fall risk assessment Invalid Interpretation Code [facility] Work Phone: Office Visiton 05-29-2014 cardiac risk group C Invalid Interpretation Code [facility] Work Phone: General cardiovascular disease 10Y risk [#] Fulda.D'Agostino N/A Invalid Interpretation Code [facility] Work Phone: Smoking cessation education (procedure) yes Invalid Interpretation Code [facility] [place] Work Phone: Vital Signs Date Time Vital Sign Value Performing Clinician Facility 01-14-2025 13:52-0400 Body temperature 98.4 [degF] Dr. Keron Maciel MD Work Phone: [facility] 01-14-2025 13:52-0400 Body weight 99.[address] Keron Maciel MD Work Phone: [facility] 01-14-2025 13:52-0400 Diastolic blood pressure 74 mm[Hg] Dr. Keron Maciel MD Work Phone: [facility] 01-14-2025 13:52-0400 Heart rate 77 /min Dr. Keron Maciel MD Work Phone: [facility] 01-14-2025 13:52-0400 Respiratory rate 18 /min Dr. Keron Maciel MD Work Phone: [facility] 01-14-2025 13:52-0400 SaO2% (BldA) [Mass fraction] 97 % Dr. Keron Maciel MD Work Phone: [facility] 01-14-2025 13:52-0400 Systolic blood pressure 120 mm[Hg] Dr. Keron Maciel MD Work Phone: [facility] 01-09-2025 15:42-0400 Body height 162.[address] Keron Maciel MD Work Phone: [facility] 01-09-2025 15:42-0400 Body mass index (BMI) [Ratio] 37.8 kg/m2 Dr. Keron Maciel MD Work Phone: [facility] 01-09-2025 15:42-0400 Body weight 99.[address] Keron Maciel MD Work Phone: [facility] 01-09-2025 15:42-0400 Diastolic blood pressure 74 mm[Hg] Dr. Keron Maciel MD Work Phone: [facility] 01-09-2025 15:42-0400 Heart rate 84 /min Dr. Keron Maciel MD Work Phone: [facility] 01-09-2025 15:42-0400 Respiratory rate 18 /min Dr. Keron Maciel MD Work Phone: [facility] 01-09-2025 15:42-0400 Systolic blood pressure 116 mm[Hg] Dr. Keron Maciel MD Work Phone: [facility] 01-08-2025 11:17-0400 Diastolic blood pressure 88 mm[Hg] Dr. Keron Maciel MD Work Phone: [facility] 01-08-2025 11:17-0400 Systolic blood pressure 140 mm[Hg] Dr. Keron Maciel MD Work Phone: [facility] 01-08-2025 10:04-0400 Body temperature 97.1 [degF] Dr. Keron Maciel MD Work Phone: [facility] 01-08-2025 10:04-0400 Heart rate 77 /min Dr. Keron Maciel MD Work Phone: [facility] 01-08-2025 10:04-0400 Respiratory rate 16 /min Dr. Keron Maciel MD Work Phone: [facility] 01-08-2025 10:04-0400 SaO2% (BldA) [Mass fraction] 93 % Dr. Keron Maciel MD Work Phone: [facility] 01-08-2025 08:09-0400 SaO2% (BldA) [Mass fraction] 94 % Dr. Keron Maciel MD Work Phone: [facility] 01-08-2025 05:34-0400 Body temperature 97.5 [degF] Dr. Keron Maciel MD Work Phone: [facility] 01-08-2025 05:34-0400 Diastolic blood pressure 66 mm[Hg] Dr. Keron Maciel MD Work Phone: [facility] 01-08-2025 05:34-0400 Heart rate 65 /min Dr. Keron Maciel MD Work Phone: [facility] 01-08-2025 05:34-0400 Respiratory rate 18 /min Dr. Keron Maciel MD Work Phone: [facility] 01-08-2025 05:34-0400 Systolic blood pressure 138 mm[Hg] Dr. Keron Maciel MD Work Phone: [facility] 01-07-2025 03:47-0400 Body height 162.[address] Keron Maciel MD Work Phone: [facility] 01-07-2025 03:47-0400 Body mass index (BMI) [Ratio] 37.9 kg/m2 Dr. Keron Maciel MD Work Phone: [facility] 01-07-2025 03:47-0400 Body weight 100.[address] Keron Maciel MD Work Phone: [facility] 01-07-2025 03:21-0400 Body temperature 98.4 [degF] Dr. Keron Maciel MD Work Phone: [facility] 01-07-2025 03:21-0400 Diastolic blood pressure 87 mm[Hg] Dr. Kerno Maciel MD Work Phone: [facility] 01-07-2025 03:21-0400 Heart rate 96 /min Dr. Keron Maciel MD Work Phone: [facility] 01-07-2025 03:21-0400 Respiratory rate 18 /min Dr. Keron Maciel MD Work Phone: [facility] 01-07-2025 03:21-0400 SaO2% (BldA) [Mass fraction] 98 % Dr. Keron Maciel MD Work Phone: [facility] 01-07-2025 03:21-0400 Systolic blood pressure 157 mm[Hg] Dr. Keron Maciel MD Work Phone: [facility] 01-07-2025 01:05-0400 Body height 162.[address] Keron Maciel MD Work Phone: [facility] 01-07-2025 01:05-0400 Body mass index (BMI) [Ratio] 38.8 kg/m2 Dr. Keron Maciel MD Work Phone: [facility] 01-07-2025 01:05-0400 Body weight 102.[address] Keron Maciel MD Work Phone: [facility] 01-06-2025 14:06-0400 Body height 162.[address] Keron Maciel MD Work Phone: [facility] 01-06-2025 14:06-0400 Body mass index (BMI) [Ratio] 38.6 kg/m2 Dr. Keron Maciel MD Work Phone: [facility] 01-06-2025 14:06-0400 Body temperature 98.4 [degF] Dr. Keron Maciel MD Work Phone: [facility] 01-06-2025 14:06-0400 Body weight 102.[address] Keron Maciel MD Work Phone: [facility] 01-06-2025 14:06-0400 Diastolic blood pressure 75 mm[Hg] Dr. Keron Maciel MD Work Phone: [facility] 01-06-2025 14:06-0400 Heart rate 63 /min Dr. Keron Maciel MD Work Phone: [facility] 01-06-2025 14:06-0400 Respiratory rate 16 /min Dr. Keron Maciel MD Work Phone: [facility] 01-06-2025 14:06-0400 SaO2% (BldA) [Mass fraction] 94 % Dr. Keron Maciel MD Work Phone: [facility] 01-06-2025 14:06-0400 Systolic blood pressure 134 mm[Hg] Dr. Keron Maciel MD Work Phone: [facility] 12-31-2024 17:18-0400 Body temperature 98.8 [degF] Dr. Keron Maciel MD Work Phone: [facility] 12-31-2024 17:18-0400 Diastolic blood pressure 96 mm[Hg] Dr. Keron Maciel MD Work Phone: [facility] 12-31-2024 17:18-0400 Heart rate 69 /min Dr. Keron Maciel MD Work Phone: [facility] 12-31-2024 17:18-0400 Respiratory rate 16 /min Dr. Keron Maciel MD Work Phone: [facility] 12-31-2024 17:18-0400 SaO2% (BldA) [Mass fraction] 96 % Dr. Keron Maciel MD Work Phone: [facility] 12-31-2024 17:18-0400 Systolic blood pressure 148 mm[Hg] Dr. Keron Maciel MD Work Phone: [facility] 12-31-2024 14:26-0400 Body height 162.[address] Keron Maciel MD Work Phone: [facility] 12-31-2024 14:26-0400 Body mass index (BMI) [Ratio] 39.1 kg/m2 Dr. Keron Maciel MD Work Phone: [facility] 12-31-2024 14:26-0400 Body weight 103.[address] Keron Maciel MD Work Phone: [facility] 12-30-2024 11:20-0400 Body height 160.[address] Keron Maciel MD Work Phone: [facility] 12-30-2024 11:20-0400 Body mass index (BMI) [Ratio] 39.8 kg/m2 Dr. Keron Maciel MD Work Phone: [facility] 12-30-2024 11:20-0400 Body temperature 98.4 [degF] Dr. Keron Maciel MD Work Phone: [facility] 12-30-2024 11:20-0400 Body weight 102.[address] Keron Maciel MD Work Phone: [facility] 12-30-2024 11:20-0400 Diastolic blood pressure 79 mm[Hg] Dr. Keron Maciel MD Work Phone: [facility] 12-30-2024 11:20-0400 Heart rate 74 /min Dr. Keron Maciel MD Work Phone: [facility] 12-30-2024 11:20-0400 Respiratory rate 16 /min Dr. Keron Maciel MD Work Phone: [facility] 12-30-2024 11:20-0400 SaO2% (BldA) [Mass fraction] 94 % Dr. Keron Maciel MD Work Phone: [facility] 12-30-2024 11:20-0400 Systolic blood pressure 144 mm[Hg] Dr. Keron Maciel MD Work Phone: [facility] 12-23-2024 13:40-0400 Body height 160.[address] Keron Maciel MD Work Phone: [facility] 12-23-2024 13:40-0400 Body mass index (BMI) [Ratio] 40.9 kg/m2 Dr. Keron Maciel MD Work Phone: [facility] 12-23-2024 13:40-0400 Body weight 104.[address] Keron Maciel MD Work Phone: [facility] 12-23-2024 13:40-0400 Diastolic blood pressure 67 mm[Hg] Dr. Keron Maciel MD Work Phone: [facility] 12-23-2024 13:40-0400 Heart rate 64 /min Dr. Keron Maciel MD Work Phone: [facility] 12-23-2024 13:40-0400 Respiratory rate 20 /min Dr. Keron Maciel MD Work Phone: [facility] 12-23-2024 13:40-0400 SaO2% (BldA) [Mass fraction] 95 % Dr. Keron Maciel MD Work Phone: [facility] 12-23-2024 13:40-0400 Systolic blood pressure 108 mm[Hg] Dr. Keron Maciel MD Work Phone: [facility] 12-21-2024 22:03-0400 Diastolic blood pressure 92 mm[Hg] Dr. Keron Maciel MD Work Phone: [facility] 12-21-2024 22:03-0400 Heart rate 86 /min Dr. Keron Maciel MD Work Phone: [facility] 12-21-2024 22:03-0400 Respiratory rate 18 /min Dr. Keron Maciel MD Work Phone: [facility] 12-21-2024 22:03-0400 SaO2% (BldA) [Mass fraction] 98 % Dr. Keron Maciel MD Work Phone: [facility] 12-21-2024 22:03-0400 Systolic blood pressure 165 mm[Hg] Dr. Keron Maciel MD Work Phone: [facility] 12-21-2024 20:36-0400 Body temperature 98 [degF] Dr. Keron Maciel MD Work Phone: [facility] 12-21-2024 16:08-0400 Body mass index (BMI) [Ratio] 40.8 kg/m2 Dr. Keron Maciel MD Work Phone: [facility] 12-21-2024 16:08-0400 Body weight 104.[address] Keron Maciel MD Work Phone: [facility] 12-21-2024 15:35-0400 Body height 160.[address] Keron Maciel MD Work Phone: [facility] 12-09-2024 14:04-0400 Body height 160.[address] Keron Maciel MD Work Phone: [facility] 12-09-2024 14:04-0400 Body mass index (BMI) [Ratio] 40.1 kg/m2 Dr. Keron Maciel MD Work Phone: [facility] 12-09-2024 14:04-0400 Body temperature 98.2 [degF] Dr. Keron Maciel MD Work Phone: [facility] 12-09-2024 14:04-0400 Body weight 102.[address] Keron Maciel MD Work Phone: [facility] 12-09-2024 14:04-0400 Diastolic blood pressure 72 mm[Hg] Dr. Keron Maciel MD Work Phone: [facility] 12-09-2024 14:04-0400 Heart rate 68 /min Dr. Keron Maciel MD Work Phone: [facility] 12-09-2024 14:04-0400 Respiratory rate 16 /min Dr. Keron Maciel MD Work Phone: [facility] 12-09-2024 14:04-0400 SaO2% (BldA) [Mass fraction] 93 % Dr. Keron Maciel MD Work Phone: [facility] 12-09-2024 14:04-0400 Systolic blood pressure 116 mm[Hg] Dr. Keron Maciel MD Work Phone: [facility] 11-25-2024 11:11-0400 Body height 160.[address] Keron Maciel MD Work Phone: [facility] 11-25-2024 11:11-0400 Body mass index (BMI) [Ratio] 40 kg/m2 Dr. Keron Maciel MD Work Phone: [facility] 11-25-2024 11:11-0400 Body temperature 98.6 [degF] Dr. Keron Maciel MD Work Phone: [facility] 11-25-2024 11:11-0400 Body weight 102.[address] Keron Maciel MD Work Phone: [facility] 11-25-2024 11:11-0400 Diastolic blood pressure 75 mm[Hg] Dr. Keron Maciel MD Work Phone: [facility] 11-25-2024 11:11-0400 Heart rate 77 /min Dr. Keron Maciel MD Work Phone: [facility] 11-25-2024 11:11-0400 Respiratory rate 16 /min Dr. Keron Maciel MD Work Phone: [facility] 11-25-2024 11:11-0400 SaO2% (BldA) [Mass fraction] 90 % Dr. Keron Maciel MD Work Phone: [facility] 11-25-2024 11:11-0400 Systolic blood pressure 146 mm[Hg] Dr. Keron Maciel MD Work Phone: [facility] 11-20-2024 00:56-0400 Body temperature 97.6 [degF] Dr. Keron Maciel MD Work Phone: [facility] 11-20-2024 00:56-0400 Diastolic blood pressure 7 mm[Hg] Dr. Keron Maciel MD Work Phone: [facility] 11-20-2024 00:56-0400 Heart rate 66 /min Dr. Keron Maciel MD Work Phone: [facility] 11-20-2024 00:56-0400 Respiratory rate 20 /min Dr. Keron Maciel MD Work Phone: [facility] 11-20-2024 00:56-0400 SaO2% (BldA) [Mass fraction] 91 % Dr. Keron Maciel MD Work Phone: [facility] 11-20-2024 00:56-0400 Systolic blood pressure 149 mm[Hg] Dr. Keron Maciel MD Work Phone: [facility] 11-19-2024 22:51-0400 Body mass index (BMI) [Ratio] 39.2 kg/m2 Dr. Keron Maciel MD Work Phone: [facility] 11-19-2024 22:51-0400 Body weight 100.[address] Keron Maciel MD Work Phone: [facility] 11-19-2024 22:48-0400 Body height 160.[address] Keron Maciel MD Work Phone: [facility] 08-01-2024 14:42-0500 Diastolic blood pressure 60 mm[Hg] Dr. Keron Maciel MD Work Phone: [facility] 08-01-2024 14:42-0500 Systolic blood pressure 106 mm[Hg] Dr. Keron Maciel MD Work Phone: [facility] 08-01-2024 13:55-0500 Body mass index (BMI) [Ratio] 39.3 kg/m2 Dr. Keron Maciel MD Work Phone: [facility] 08-01-2024 13:55-0500 Body temperature 97.5 [degF] Dr. Keron Maciel MD Work Phone: [facility] 08-01-2024 13:55-0500 Body weight 100.[address] Keron Maciel MD Work Phone: [facility] 08-01-2024 13:55-0500 Heart rate 89 /min Dr. Keron Maciel MD Work Phone: [facility] 08-01-2024 13:55-0500 Respiratory rate 17 /min Dr. Keron Maciel MD Work Phone: [facility] 08-01-2024 13:55-0500 SaO2% (BldA) [Mass fraction] 97 % Dr. Keron Maciel MD Work Phone: [facility] 07-25-2024 14:40-0500 Body mass index (BMI) [Ratio] 39.7 kg/m2 Dr. Keron Maciel MD Work Phone: [facility] 07-25-2024 14:40-0500 Body temperature 98.2 [degF] Dr. Keron Maciel MD Work Phone: [facility] 07-25-2024 14:40-0500 Body weight 101.[address] Keron Maciel MD Work Phone: [facility] 07-25-2024 14:40-0500 Diastolic blood pressure 83 mm[Hg] Dr. Keron Maciel MD Work Phone: [facility] 07-25-2024 14:40-0500 Heart rate 68 /min Dr. Keron Maciel MD Work Phone: [facility] 07-25-2024 14:40-0500 Respiratory rate 16 /min Dr. Keron Maciel MD Work Phone: [facility] 07-25-2024 14:40-0500 SaO2% (BldA) [Mass fraction] 96 % Dr. Keron Maciel MD Work Phone: [facility] 07-25-2024 14:40-0500 Systolic blood pressure 130 mm[Hg] Dr. Keron Maciel MD Work Phone: [facility] 09-14-2023 15:11-0400 Body height 162.[address] Keron Maciel Work Phone: [facility] 09-14-2023 15:11-0400 Body mass index (BMI) [Ratio] 38.7 kg/m2 Dr. Keron Maciel Work Phone: [facility] 09-14-2023 15:11-0400 Body temperature 97.3 [degF] Dr. Keron Maciel Work Phone: [facility] 09-14-2023 15:11-0400 Body weight 102.[address] Keron Maciel Work Phone: [facility] 09-14-2023 15:11-0400 Diastolic blood pressure 91 mm[Hg] Dr. Keron Maciel Work Phone: [facility] 09-14-2023 15:11-0400 Heart rate 87 /min Dr. Keron Maciel Work Phone: [facility] 09-14-2023 15:11-0400 Respiratory rate 17 /min Dr. Keron Maciel Work Phone: [facility] 09-14-2023 15:11-0400 SaO2% (BldA) [Mass fraction] 97 % Dr. Keron Maciel Work Phone: [facility] 09-14-2023 15:11-0400 Systolic blood pressure 167 mm[Hg] Dr. Keron Maciel Work Phone: [facility] 08-10-2023 15:48-0500 Body mass index (BMI) [Ratio] 39.4 kg/m2 Dr. Keron Maciel Work Phone: [facility] 08-10-2023 15:48-0500 Body temperature 97.7 [degF] Dr. Keron Maciel Work Phone: [facility] 08-10-2023 15:48-0500 Body weight 104.[address] Keron Maciel Work Phone: [facility] 08-10-2023 15:48-0500 Diastolic blood pressure 84 mm[Hg] Dr. Keron Maciel Work Phone: [facility] 08-10-2023 15:48-0500 Heart rate 78 /min Dr. Keron Maciel Work Phone: [facility] 08-10-2023 15:48-0500 Respiratory rate 14 /min Dr. Keron Maciel Work Phone: [facility] 08-10-2023 15:48-0500 SaO2% (BldA) [Mass fraction] 94 % Dr. Keron Maciel Work Phone: [facility] 08-10-2023 15:48-0500 Systolic blood pressure 128 mm[Hg] Dr. Keron Maciel Work Phone: [facility] 07-27-2023 14:30-0500 Body temperature 97.7 [degF] Dr. Keron Maciel Work Phone: [facility] 07-27-2023 14:30-0500 Body weight 104.[address] Keron Maciel Work Phone: [facility] 07-27-2023 14:30-0500 Diastolic blood pressure 67 mm[Hg] Dr. Keron Maciel Work Phone: [facility] 07-27-2023 14:30-0500 Heart rate 90 /min Dr. Keron Maciel Work Phone: [facility] 07-27-2023 14:30-0500 Respiratory rate 17 /min Dr. Keron Maciel Work Phone: [facility] 07-27-2023 14:30-0500 SaO2% (BldA) [Mass fraction] 97 % Dr. Keron Maciel Work Phone: [facility] 07-27-2023 14:30-0500 Systolic blood pressure 122 mm[Hg] Dr. Keron Maciel Work Phone: [facility] 07-24-2023 14:04-0500 Body mass index (BMI) [Ratio] 39.4 kg/m2 Dr. Keron Maciel Work Phone: [facility] 07-24-2023 14:04-0500 Body temperature 98.7 [degF] Dr. Keron Maciel Work Phone: [facility] 07-24-2023 14:04-0500 Body weight 104.[address] Keron Maciel Work Phone: [facility] 07-24-2023 14:04-0500 Diastolic blood pressure 90 mm[Hg] Dr. Keron Maciel Work Phone: [facility] 07-24-2023 14:04-0500 Heart rate 80 /min Dr. Keron Maciel Work Phone: [facility] 07-24-2023 14:04-0500 Respiratory rate 19 /min Dr. Keron Maciel Work Phone: [facility] 07-24-2023 14:04-0500 SaO2% (BldA) [Mass fraction] 96 % Dr. Keron Maciel Work Phone: [facility] 07-24-2023 14:04-0500 Systolic blood pressure 136 mm[Hg] Dr. Keron Maciel Work Phone: [facility] 07-16-2023 19:32-0500 Body temperature 98.1 [degF] Dr. Keron Maciel Work Phone: [facility] 07-16-2023 19:32-0500 Diastolic blood pressure 84 mm[Hg] Dr. Keron Maciel Work Phone: [facility] 07-16-2023 19:32-0500 Heart rate 82 /min Dr. Keron Maciel Work Phone: [facility] 07-16-2023 19:32-0500 Respiratory rate 16 /min Dr. Keron Maciel Work Phone: [facility] 07-16-2023 19:32-0500 SaO2% (BldA) [Mass fraction] 95 % Dr. Keron Maciel Work Phone: [facility] 07-16-2023 19:32-0500 Systolic blood pressure 146 mm[Hg] Dr. Keron Maciel Work Phone: [facility] 07-16-2023 14:57-0500 Body mass index (BMI) [Ratio] 40.2 kg/m2 Dr. Keron Maciel Work Phone: [facility] 07-16-2023 14:57-0500 Body weight 106.[address] Keron Maciel Work Phone: [facility] 10-18-2022 13:46-0400 Body height 162.[address] Keron Maciel Work Phone: [facility] 10-18-2022 13:46-0400 Body mass index (BMI) [Ratio] 40.5 kg/m2 Dr. Keron Maciel Work Phone: [facility] 10-18-2022 13:46-0400 Body temperature 93 [degF] Dr. Keron Maciel Work Phone: [facility] 10-18-2022 13:46-0400 Body weight 107.[address] Keron Maciel Work Phone: [facility] 10-18-2022 13:46-0400 Diastolic blood pressure 84 mm[Hg] Dr. Keron Maciel Work Phone: [facility] 10-18-2022 13:46-0400 Heart rate 84 /min Dr. Keron Maciel Work Phone: [facility] 10-18-2022 13:46-0400 Respiratory rate 18 /min Dr. Keron Maciel Work Phone: [facility] 10-18-2022 13:46-0400 SaO2% (BldA) [Mass fraction] 94 % Dr. Keron Maciel Work Phone: [facility] 10-18-2022 13:46-0400 Systolic blood pressure 146 mm[Hg] Dr. Keron Maciel Work Phone: [facility] 10-10-2022 20:09-0400 Diastolic blood pressure 70 mm[Hg] Dr. Keron Maciel Work Phone: [facility] 10-10-2022 20:09-0400 Heart rate 86 /min Dr. Keron Maciel Work Phone: [facility] 10-10-2022 20:09-0400 Systolic blood pressure 115 mm[Hg] Dr. Keron Maciel Work Phone: [facility] 10-10-2022 13:01-0400 Body mass index (BMI) [Ratio] 41 kg/m2 Dr. Keron Maciel Work Phone: [facility] 10-10-2022 13:01-0400 Body temperature 98 [degF] Dr. Keron Maciel Work Phone: [facility] 10-10-2022 13:01-0400 Body weight 108.[address] Keron Maciel Work Phone: [facility] 10-10-2022 13:01-0400 Respiratory rate 17 /min Dr. Keron Maciel Work Phone: [facility] 10-10-2022 13:01-0400 SaO2% (BldA) [Mass fraction] 98 % Dr. Keron Maciel Work Phone: [facility] 09-28-2022 14:32-0400 Body temperature 98.8 [degF] Dr. Keron Maciel Work Phone: [facility] 09-28-2022 14:32-0400 Body weight 109.[address] Keron Maciel Work Phone: [facility] 09-28-2022 14:32-0400 Diastolic blood pressure 80 mm[Hg] Dr. Keron Maciel Work Phone: [facility] 09-28-2022 14:32-0400 Heart rate 76 /min Dr. Keron Maciel Work Phone: [facility] 09-28-2022 14:32-0400 Respiratory rate 20 /min Dr. Keron Maciel Work Phone: [facility] 09-28-2022 14:32-0400 SaO2% (BldA) [Mass fraction] 95 % Dr. Keron Maciel Work Phone: [facility] 09-28-2022 14:32-0400 Systolic blood pressure 142 mm[Hg] Dr. Keron Maciel Work Phone: [facility] 09-08-2022 14:03-0400 Body height 162.[address] Keron Maciel Work Phone: [facility] 09-08-2022 14:02-0400 Body mass index (BMI) [Ratio] 41.3 kg/m2 Dr. Keron Maciel Work Phone: [facility] 09-08-2022 14:02-0400 Body weight 109.[address] Keron Maciel Work Phone: [facility] 09-08-2022 14:02-0400 Diastolic blood pressure 71 mm[Hg] Dr. Keron Maciel Work Phone: [facility] 09-08-2022 14:02-0400 Heart rate 76 /min Dr. Keron Maciel Work Phone: [facility] 09-08-2022 14:02-0400 Respiratory rate 22 /min Dr. Keron Maciel Work Phone: [facility] 09-08-2022 14:02-0400 SaO2% (BldA) [Mass fraction] 97 % Dr. Keron Maciel Work Phone: [facility] 09-08-2022 14:02-0400 Systolic blood pressure 118 mm[Hg] Dr. Keron Maciel Work Phone: [facility] 08-03-2022 07:45-0500 Body mass index (BMI) [Ratio] 40.6 kg/m2 Dr. Keron Maciel Work Phone: [facility] 08-03-2022 07:45-0500 Body temperature 97 [degF] Dr. Keron Maciel Work Phone: [facility] 08-03-2022 07:45-0500 Body weight 107.[address] Keron Maciel Work Phone: [facility] 08-03-2022 07:45-0500 Diastolic blood pressure 83 mm[Hg] Dr. Keron Maciel Work Phone: [facility] 08-03-2022 07:45-0500 Heart rate 86 /min Dr. Keron Maciel Work Phone: [facility] 08-03-2022 07:45-0500 Respiratory rate 20 /min Dr. Keron Maciel Work Phone: [facility] 08-03-2022 07:45-0500 SaO2% (BldA) [Mass fraction] 94 % Dr. Keron Maciel Work Phone: [facility] 08-03-2022 07:45-0500 Systolic blood pressure 154 mm[Hg] Dr. Keron Maciel Work Phone: [facility] 02-25-2022 09:02-0400 Body height 162.[address] Keron Maciel Work Phone: [facility] Work Phone: 02-25-2022 09:02-0400 Body mass index (BMI) [Ratio] 41 kg/m2 Dr. Keron Maciel Work Phone: [facility] Work Phone: 02-25-2022 09:02-0400 Body weight 108.[address] Keron Maciel Work Phone: [facility] Work Phone: 02-25-2022 09:02-0400 Diastolic blood pressure 79 mm[Hg] Dr. Keron Maciel Work Phone: [facility] Work Phone: 02-25-2022 09:02-0400 Heart rate 78 /min Dr. Keron Maciel Work Phone: [facility] Work Phone: 02-25-2022 09:02-0400 Respiratory rate 18 /min Dr. Keron Maciel Work Phone: [facility] Work Phone: 02-25-2022 09:02-0400 SaO2% (BldA) [Mass fraction] 98 % Dr. Keron Maciel Work Phone: [facility] Work Phone: 02-25-2022 09:02-0400 Systolic blood pressure 137 mm[Hg] Dr. Keron Maciel Work Phone: [facility] Work Phone: 02-14-2022 13:10-0400 Body height 162.[address] Keron Maciel Work Phone: [facility] Work Phone: 02-14-2022 13:10-0400 Body mass index (BMI) [Ratio] 41.1 kg/m2 Dr. Keron Maciel Work Phone: [facility] Work Phone: 02-14-2022 13:10-0400 Body temperature 98.2 [degF] Dr. Keron Maciel Work Phone: [facility] Work Phone: 02-14-2022 13:10-0400 Body weight 108.[address] Keron Maciel Work Phone: [facility] Work Phone: 02-14-2022 13:10-0400 Diastolic blood pressure 76 mm[Hg] Dr. Keron Maciel Work Phone: [facility] Work Phone: 02-14-2022 13:10-0400 Heart rate 75 /min Dr. Keron Maciel Work Phone: [facility] Work Phone: 02-14-2022 13:10-0400 Respiratory rate 22 /min Dr. Keron Maciel Work Phone: [facility] Work Phone: 02-14-2022 13:10-0400 SaO2% (BldA) [Mass fraction] 98 % Dr. Keron Maciel Work Phone: [facility] Work Phone: 02-14-2022 13:10-0400 Systolic blood pressure 126 mm[Hg] Dr. Keron Maciel Work Phone: [facility] Work Phone: 02-08-2022 13:22-0400 Body temperature 98.2 [degF] Dr. Keron Maciel Work Phone: [facility] Work Phone: 02-08-2022 13:22-0400 Diastolic blood pressure 54 mm[Hg] Dr. Keron Maciel Work Phone: [facility] Work Phone: 02-08-2022 13:22-0400 Heart rate 86 /min Dr. Keron Maciel Work Phone: [facility] Work Phone: 02-08-2022 13:22-0400 Respiratory rate 14 /min Dr. Keron Maciel Work Phone: [facility] Work Phone: 02-08-2022 13:22-0400 SaO2% (BldA) [Mass fraction] 95 % Dr. Keron Maciel Work Phone: [facility] Work Phone: 02-08-2022 13:22-0400 Systolic blood pressure 108 mm[Hg] Dr. Keron Maciel Work Phone: [facility] Work Phone: 02-01-2022 16:28-0400 Diastolic blood pressure 78 mm[Hg] Dr. Keron Maciel Work Phone: [facility] Work Phone: 02-01-2022 16:28-0400 Heart rate 78 /min Dr. Keron Maciel Work Phone: [facility] Work Phone: 02-01-2022 16:28-0400 Respiratory rate 16 /min Dr. Keron Maciel Work Phone: [facility] Work Phone: 02-01-2022 16:28-0400 SaO2% (BldA) [Mass fraction] 98 % Dr. Keron Maciel Work Phone: [facility] Work Phone: 02-01-2022 16:28-0400 Systolic blood pressure 136 mm[Hg] Dr. Keron Maciel Work Phone: [facility] Work Phone: 02-01-2022 13:24-0400 Body height 162.[address] Keron Maciel Work Phone: [facility] Work Phone: 02-01-2022 13:24-0400 Body mass index (BMI) [Ratio] 40.8 kg/m2 Dr. Keron Maciel Work Phone: [facility] Work Phone: 02-01-2022 13:24-0400 Body temperature 97.8 [degF] Dr. Keron Maciel Work Phone: [facility] Work Phone: 02-01-2022 13:24-0400 Body weight 107.[address] Keron Maciel Work Phone: [facility] Work Phone: 10-29-2021 07:13-0400 Body height 162.[address] Keron Maciel Work Phone: [facility] Work Phone: 10-29-2021 07:13-0400 Body weight 108.[address] Keron Maciel Work Phone: [facility] Work Phone: 10-28-2021 08:17-0400 Body mass index (BMI) [Ratio] 41.1 kg/m2 Dr. Keron Maciel Work Phone: [facility] Work Phone: 10-26-2021 08:19-0400 Body weight 108.[address] Keron Maciel Work Phone: [facility] Work Phone: 10-26-2021 08:19-0400 Diastolic blood pressure 72 mm[Hg] Dr. Keron Maciel Work Phone: [facility] Work Phone: 10-26-2021 08:19-0400 Heart rate 77 /min Dr. Keron Maciel Work Phone: [facility] Work Phone: 10-26-2021 08:19-0400 Respiratory rate 22 /min Dr. Keron Maciel Work Phone: [facility] Work Phone: 10-26-2021 08:19-0400 SaO2% (BldA) [Mass fraction] 96 % Dr. Keron Maciel Work Phone: [facility] Work Phone: 10-26-2021 08:19-0400 Systolic blood pressure 108 mm[Hg] Dr. Keron Maciel Work Phone: [facility] Work Phone: 10-26-2021 08:19-0400 Body weight 108.[address] Keron Maciel Work Phone: [facility] Work Phone: 10-26-2021 08:19-0400 Diastolic blood pressure 72 mm[Hg] Dr. Keron Maciel Work Phone: [facility] Work Phone: 10-26-2021 08:19-0400 Heart rate 77 /min Dr. Keron Maciel Work Phone: [facility] Work Phone: 10-26-2021 08:19-0400 Respiratory rate 22 /min Dr. Keron Maciel Work Phone: [facility] Work Phone: 10-26-2021 08:19-0400 SaO2% (BldA) [Mass fraction] 96 % Dr. Keron Maciel Work Phone: [facility] Work Phone: 10-26-2021 08:19-0400 Systolic blood pressure 108 mm[Hg] Dr. Keron Maciel Work Phone: [facility] Work Phone: 10-13-2021 13:03-0400 Body mass index (BMI) [Ratio] 40.8 kg/m2 Dr. Keron Maciel Work Phone: [facility] Work Phone: 10-13-2021 13:03-0400 Body temperature 96.9 [degF] Dr. Keron Maciel Work Phone: [facility] Work Phone: 10-13-2021 13:03-0400 Body weight 108.[address] Keron Maciel Work Phone: [facility] Work Phone: 10-13-2021 13:03-0400 Diastolic blood pressure 70 mm[Hg] Dr. Keron Maciel Work Phone: [facility] Work Phone: 10-13-2021 13:03-0400 Heart rate 95 /min Dr. Keron Maciel Work Phone: [facility] Work Phone: 10-13-2021 13:03-0400 Respiratory rate 16 /min Dr. Keron Maciel Work Phone: [facility] Work Phone: 10-13-2021 13:03-0400 SaO2% (BldA) [Mass fraction] 95 % Dr. Keron Maciel Work Phone: [facility] Work Phone: 10-13-2021 13:03-0400 Systolic blood pressure 130 mm[Hg] Dr. Keron Maciel Work Phone: [facility] Work Phone: 10-13-2021 13:03-0400 Body height 162.[address] Keron Maciel Work Phone: [facility] Work Phone: 10-13-2021 13:03-0400 Body mass index (BMI) [Ratio] 40.8 kg/m2 Dr. Keron Maciel Work Phone: [facility] Work Phone: 10-13-2021 13:03-0400 Body temperature 96.9 [degF] Dr. Keron Maciel Work Phone: [facility] Work Phone: 10-13-2021 13:03-0400 Body weight 108.[address] Keron Maciel Work Phone: [facility] Work Phone: 10-13-2021 13:03-0400 Diastolic blood pressure 70 mm[Hg] Dr. Keron Maciel Work Phone: [facility] Work Phone: 10-13-2021 13:03-0400 Heart rate 95 /min Dr. Keron Maciel Work Phone: [facility] Work Phone: 10-13-2021 13:03-0400 Respiratory rate 16 /min Dr. Keron Maciel Work Phone: [facility] Work Phone: 10-13-2021 13:03-0400 SaO2% (BldA) [Mass fraction] 95 % Dr. Keron Maciel Work Phone: [facility] Work Phone: 10-13-2021 13:03-0400 Systolic blood pressure 130 mm[Hg] Dr. Keron Maciel Work Phone: [facility] Work Phone: 10-11-2021 13:12-0400 Body mass index (BMI) [Ratio] 40.8 kg/m2 Dr. Keron Maciel Work Phone: [facility] Work Phone: 10-11-2021 13:12-0400 Body weight 108.[address] Keron Maciel Work Phone: [facility] Work Phone: 10-11-2021 13:12-0400 Diastolic blood pressure 68 mm[Hg] Dr. Keron Maciel Work Phone: [facility] Work Phone: 10-11-2021 13:12-0400 Heart rate 80 /min Dr. Keron Maciel Work Phone: [facility] Work Phone: 10-11-2021 13:12-0400 Respiratory rate 17 /min Dr. Keron Maciel Work Phone: [facility] Work Phone: 10-11-2021 13:12-0400 SaO2% (BldA) [Mass fraction] 96 % Dr. Keron Maciel Work Phone: [facility] Work Phone: 10-11-2021 13:12-0400 Systolic blood pressure 114 mm[Hg] Dr. Keron Maciel Work Phone: [facility] Work Phone: 10-11-2021 13:12-0400 Body mass index (BMI) [Ratio] 40.8 kg/m2 Dr. Keron Maciel Work Phone: [facility] Work Phone: 10-11-2021 13:12-0400 Body weight 108.[address] Keron Maciel Work Phone: [facility] Work Phone: 10-11-2021 13:12-0400 Diastolic blood pressure 68 mm[Hg] Dr. Keron Maciel Work Phone: [facility] Work Phone: 10-11-2021 13:12-0400 Heart rate 80 /min Dr. Keron Maciel Work Phone: [facility] Work Phone: 10-11-2021 13:12-0400 Respiratory rate 17 /min Dr. Keron Maciel Work Phone: [facility] Work Phone: 10-11-2021 13:12-0400 SaO2% (BldA) [Mass fraction] 96 % Dr. Keron Maciel Work Phone: [facility] Work Phone: 10-11-2021 13:12-0400 Systolic blood pressure 114 mm[Hg] Dr. Keron Maciel Work Phone: [facility] Work Phone: 09-07-2021 13:29-0400 Body mass index (BMI) [Ratio] 40.6 kg/m2 Dr. Keron Maciel Work Phone: [facility] Work Phone: 09-07-2021 13:29-0400 Body temperature 96.3 [degF] Dr. Keron Maciel Work Phone: [facility] Work Phone: 09-07-2021 13:29-0400 Body weight 107.[address] Keron Maciel Work Phone: [facility] Work Phone: 09-07-2021 13:29-0400 Diastolic blood pressure 80 mm[Hg] Dr. Keron Maciel Work Phone: [facility] Work Phone: 09-07-2021 13:29-0400 Heart rate 87 /min Dr. Keron Maciel Work Phone: [facility] Work Phone: 09-07-2021 13:29-0400 Respiratory rate 20 /min Dr. Keron Maciel Work Phone: [facility] Work Phone: 09-07-2021 13:29-0400 SaO2% (BldA) [Mass fraction] 97 % Dr. Keron Maciel Work Phone: [facility] Work Phone: 09-07-2021 13:29-0400 Systolic blood pressure 140 mm[Hg] Dr. Keron Maciel Work Phone: [facility] Work Phone: 08-05-2021 05:23-0500 Body temperature 97.2 [degF] Dr. Keron Maciel Work Phone: [facility] Work Phone: 08-05-2021 05:23-0500 Body weight 106.[address] Keron Maciel Work Phone: [facility] Work Phone: 08-05-2021 05:23-0500 Diastolic blood pressure 81 mm[Hg] Dr. Keron Maciel Work Phone: [facility] Work Phone: 08-05-2021 05:23-0500 Heart rate 86 /min Dr. Keron Maciel Work Phone: [facility] Work Phone: 08-05-2021 05:23-0500 Respiratory rate 18 /min Dr. Keron Maciel Work Phone: [facility] Work Phone: 08-05-2021 05:23-0500 SaO2% (BldA) [Mass fraction] 97 % Dr. Keron Maciel Work Phone: [facility] Work Phone: 08-05-2021 05:23-0500 Systolic blood pressure 145 mm[Hg] Dr. Keron Maciel Work Phone: [facility] Work Phone: 07-13-2021 09:20-0500 Diastolic blood pressure 68 mm[Hg] Dr. Keron Maciel Work Phone: [facility] Work Phone: 07-13-2021 09:20-0500 Heart rate 87 /min Dr. Keron Maciel Work Phone: [facility] Work Phone: 07-13-2021 09:20-0500 SaO2% (BldA) [Mass fraction] 98 % Dr. Keron Maciel Work Phone: [facility] Work Phone: 07-13-2021 09:20-0500 Systolic blood pressure 120 mm[Hg] Dr. Keron Maciel Work Phone: [facility] Work Phone: 01-18-2021 13:35-0400 Body mass index (BMI) [Ratio] 40.6 kg/m2 Dr. Keron Maciel Work Phone: [facility] Work Phone: 01-18-2021 13:35-0400 Body mass index (BMI) [Ratio] 40.6 kg/m2 Dr. Keron Maciel Work Phone: [facility] Work Phone: 07-22-2020 09:45-0500 Body mass index (BMI) [Ratio] 40.8 kg/m2 Dr. Keron Maciel Work Phone: [facility] Work Phone: 05-09-2017 08:43-0500 BMI (Body Mass Index) 41.78 kg/m2 Saurabh Benites MD [facility] Work Phone: 05-09-2017 08:43-0500 Body Temperature 97.8 [degF] Saurabh Benites MD [facility] Work Phone: 05-09-2017 08:43-0500 BP Diastolic 83 mm[Hg] Saurabh Benites MD [facility] Work Phone: 05-09-2017 08:43-0500 BP Systolic 148 mm[Hg] Saurabh Benites MD [facility] Work Phone: 05-09-2017 08:43-0500 Height 160.02 cm Saurabh Benites MD [facility] Work Phone: 05-09-2017 08:43-0500 Pulse (Heart Rate) 74 /min Saurabh Benites MD [facility] Work Phone: 05-09-2017 08:43-0500 Respiratory Rate 20 /min Saurabh Benites MD [facility] Work Phone: 05-09-2017 08:43-0500 Weight 107 kg Saurabh Benites MD [facility] Work Phone: 05-31-2016 10:22-0500 Body Temperature 97.34 [degF] Saurabh Benites MD [facility] Work Phone: 05-31-2016 10:22-0500 BSA (Body Surface Area) 2.06 m2 Saurabh Benites MD [facility] Work Phone: 05-31-2016 10:050 Height 160.02 cm Saurabh Benites MD [facility] Work Phone: 05-31-2016 10:050 Weight 105.45 kg Saurabh Benites MD [facility] Work Phone: 03-08-2016 14:31-0400 Pulse Oximetry 97 % Saurabh Benites MD [facility] Work Phone: Encounters Encounter Date Encounter Type Care Provider Facility Start: 01-29-2025 ambulatory Keron Maciel Facility :[facility] Start: 01-27-2025 ambulatory Dia Ovalle Facility :[facility] Start: 01-14-2025 End: 01-14-2025 Dr. Rich Padgett MD -[facility] Work Phone: Start: 01-14-2025 End: 01-14-[address] Keron Maciel MD Work Phone: -[facility] Start: 01-14-2025 Dr. Dia drake MD -Occupational Therapy Work Phone: Start: 01-09-2025 End: 01-09-2025 Zhen WALKER -[facility] Work Phone: Start: 01-09-2025 End: 01-09-[address] Keron aMciel MD Work Phone: -[facility] Start: 01-08-2025 Dr. Dia drake MD -[facility] Work Phone: Start: 01-07-2025 End: 01-08-2025 Evaluation and management of inpatient Dr. Keron Maciel MD Work Phone: -[facility] Start: 01-07-[address] Beatrice Maciel MD Work Phone: -[facility] Start: 01-07-2025 End: 01-08-2025 Dr. Junior Valverde MD -[facility] Work Phone: Start: 01-07-2025 ambulatory Dia Ovalle [place] [place]: 01-06-2025 End: 01-06-2025 Dr. Keron Maciel MD -[facility] Work Phone: Start: 01-06-2025 End: 01-06-[address] Keron Maciel MD Work Phone: -[facility] Start: 01-02-2025 End: 01-02-[address] Keron Maciel MD Work Phone: -Cardiovascular Services Start: 01-02-2025 End: 01-02-2025 Dr. Patti Steinberg MD -[facility] Start: 01-02-2025 End: 01-02-2025 ambulatory Keron Maciel Facility:[facility] Start: 12-31-2024 End: 12-31-2024 Dr. Keron Maciel MD Work Phone: -Emergency Department Work Phone: Start: 12-31-2024 End: 12-31-2024 Emergency department patient visit Dr. Keron Maciel MD Work Phone: -Emergency Department Start: 12-30-2024 End: 12-30-2024 Dr. Keron Maciel MD -[facility] Work Phone: Start: 12-30-2024 End: 12-30-[address] Keron Maciel MD Work Phone: -[facility] Start: 12-23-2024 End: 12-23-2024 Patient encounter procedure Zhen Simons NP-[facility] -[facility] Work Phone: Start: 12-23-2024 End: 12-23-2024 Zhen Simons NP-[facility] -[facility] Work Phone: Start: 12-23-2024 End: 12-23-[address] Keron Maciel MD Work Phone: -[facility] Start: 12-21-2024 End: 12-21-2024 Dr. Derick Sorenson DO -Emergency [facility] Work Phone: Start: 12-21-2024 End: 12-21-2024 [...] Start: 12-13-2024 End: 12-13-2024 ambulatory BARBIE NOVA Facility:[facility] Start: 12-09-2024 End: 12-09-[address] Keron Maciel MD Work Phone: -Radiology [facility] Start: 12-09-2024 End: 12-09-[address] Keron Maciel MD -Radiology [facility] Work Phone: Start: 12-09-2024 End: 12-09-2024 Dr. Keron Maciel MD -Radiology [facility] Work Phone: Start: 12-09-2024 End: 12-09-[address] Keron Maciel MD -[facility] Work Phone: Start: 12-09-2024 End: 12-09-2024 Dr. Keron Maciel MD -[facility] Work Phone: Start: 12-09-2024 End: 12-09-[address] Keron Maciel MD Work Phone: [facility] Work Phone: Start: 12-09-2024 End: 12-09-2024 ambulatory Keron Maciel Facility:[facility] Start: 11-25-2024 End: 11-25-[address] Keron Maciel MD Work Phone: [facility] Work Phone: Start: 11-25-2024 End: 11-25-[address] Keron Maciel MD -Laboratory [place] Work Phone: Start: 11-25-2024 End: 11-25-2024 Dr. Keron Maciel MD -Laboratory [place] Work Phone: Start: 11-25-2024 End: 11-25-[address] Keron Maciel MD -[facility] Work Phone: Start: 11-25-2024 End: 11-25-2024 Dr. Keron Maciel MD -[facility] Work Phone: Start: 11-25-2024 End: 11-25-[address] Keron Maciel MD Work Phone: [facility] Work Phone: Start: 11-25-2024 End: 11-25-2024 ambulatory Keron Maciel Facility:[facility] Start: 11-19-2024 End: 11-20-2024 Helio Corrales DO -Emergency Departmen t Work Phone: Start: 11-19-2024 End: 11-20-2024 Emergency department patient visit Helio Corrales DO -Emergency Department Work Phone: Start: 09-06-2024 End: 09-06-2024 ambulatory BARBIE NOVA Facility:[facility] Start: 09-06-2024 End: 09-06-2024 Patient encounter procedure Barbie Nova Work Phone: Podiatry Comment on above: Onychomycosis (Prima ry Dx); Pain in toe of left foot; Pain in toe of right foot; Diabetic polyneuropathy associated with type 2 diabetes mellitus (HCC); Venous insufficiency Start: 08-01-2024 End: 08-01-[address] Rich Padgett MD -[facility] Work Phone: Start: 08-01-2024 End: 08-01-2024 ambulatory Keron Maciel Facility:[facility] Start: 07-25-2024 End: 07-25-[address] Keron Maciel MD -[facility] Work Phone: Start: 07-25-2024 End: 07-25-2024 ambulatory Keron Maciel Facility:[facility] Start: 06-24-2024 End: 06-24-2024 ambulatory Keron Maciel Facility:[facility] Start: 06-24-2024 End: 06-24-2024 ambulatory Joan Alpine Facility:[facility] Start: 06-15-2024 ambulatory Keron Maciel Facility :[facility] Start: 06-15-2024 End: 06-16-2024 ambulatory Amalia Moncada Facility:[facility] Start: 06-06-2024 End: 06-06-2024 ambulatory BARBIE NOVA Facility:[facility] Start: 06-06-2024 End: 06-06-2024 Patient encounter procedure Barbie Testse Work Phone: Podiatry Comment on above: Onychomycosis (Prima ry Dx); Pain in toe of left foot; Pain in toe of right foot; Diabetic polyneuropathy associated with type 2 diabetes mellitus (HCC) Start: 05-20-2024 End: 05-20-2024 ambulatory Keron Maciel Facility:[facility] Start: 05-09-2024 End: 05-09-2024 ambulatory Keron Maciel Facility:[facility] Start: 04-22-2024 End: 04-22-2024 ambulatory Keron Maciel Facility:[facility] Start: 03-28-2024 End: 03-28-2024 ambulatory Keron Maciel Facility:[facility] Start: 03-27-2024 End: 03-27-2024 ambulatory Keron Maciel Facility:[facility] Start: 03-14-2024 End: 03-14-2024 ambulatory Keron Maciel [place] [place]: 03-07-2024 End: 03-07-2024 ambulatory Keron Maciel [place] [place] Start: 02-29-2024 End: 02-29-2024 ambulatory BARBIE NOVA Facility:[facility] Start: 02-29-2024 End: 02-29-2024 Patient encounter procedure Barbie Nova Work Phone: Podiatry Comment on above: Onychomycosis (Prima ry Dx); Pain in toe of left foot; Pain in toe of right foot; Diabetic polyneuropathy associated with type 2 diabetes mellitus (HCC) Start: 02-26-2024 End: 02-26-2024 ambulatory Keron Maciel Facility:[facility] Start: 11-16-2023 End: 11-16-2023 Patient encounter procedure Barbie Nova Work Phone: Podiatry Comment on above: Onychomycosis (Prima ry Dx); Pain in toe of left foot; Pain in toe of right foot; Diabetic polyneuropathy associated with type 2 diabetes mellitus (HCC) Start: 09-22-2023 End: 09-22-[address] Keron Maciel Work Phone: [facility] Work Phone: Start: 09-22-2023 End: 09-22-[address] Keron Maciel Work Phone: [facility]-Laboratory Work Phone: Start: 09-14-2023 End: 09-14-[address] Keron Maciel Work Phone: [facility] Work Phone: Start: 08-10-2023 End: 08-10-[address] Keron Maciel Work Phone: [facility] Work Phone: Start: 07-31-2023 End: 07-31-2023 Patient encounter procedure Barbie Nova Work Phone: Podiatry Comment on above: Onychomycosis (Prima ry Dx); Pain in toe of left foot; Pain in toe of right foot; Xerosis cutis; Diabetic polyneuropathy associated with diabetes mellitus due to underlying condition (HCC); Callus of heel Start: 07-31-2023 End: 07-31-2023 Subsequent hospital visit by physician [facility] Work Phone: Radiology Start: 07-27-2023 End: 07-27-[address] Keron Maciel Work Phone: [facility] Work Phone: Start: 07-24-2023 End: 07-24-[address] Keron Maciel Work Phone: [facility] Work Phone: Start: 07-16-2023 End: 07-16-2023 Emergency department patient visit Dr. Keron Maciel Work Phone: [facility]-Emergency Department Work Phone: Start: 12-09-2022 End: 12-09-[address] Keron Maciel Work Phone: [facility] Work Phone: Start: 12-09-2022 End: 12-09-[address] Keron Maciel Work Phone: [facility]-Physical Therapy Start: 10-18-2022 End: 10-18-[address] Keron Maciel Work Phone: [facility]ology Start: 10-10-2022 End: 10-10-[address] Keron Maciel Work Phone: [facility] Start: 10-05-2022 End: 10-05-[address] Keron Maciel Work Phone: [facility]-Radiology, [facility] Start: 09-28-2022 End: 09-28-[address] Keron Maciel Work Phone: [facility] Work Phone: Start: 09-28-2022 End: 09-28-[address] Keron Maciel Work Phone: [facility]-Laboratory Start: 09-28-2022 End: 09-28-[address] Keron Maciel Work Phone: [place] [facility] Start: 09-08-2022 End: 09-08-[address] Keron Maciel Work Phone: [facility] Start: 09-07-2022 End: 09-07-[address] Keron Maciel Work Phone: [facility] Work Phone: Start: 09-07-2022 End: 09-07-[address] Keron Maciel Work Phone: [facility]-Radiology, [facility] Start: 08-03-2022 End: 08-03-[address] Keron Maciel Work Phone: [facility]-Pulmonary Medicine [facility] Start: 03-03-2022 End: 03-03-[address] Keron Maciel Work Phone: [facility] Work Phone: Start: 03-03-2022 End: 03-03-[address] Keron Maciel Work Phone: [facility]-Laboratory Start: 02-25-2022 End: 02-25-[address] Keron Maciel Work Phone: [facility] Start: 02-17-2022 Non-patient / Non-visit Dr. Madeleine Maciel Work Phone: [facility] Internal Medicine Start: 02-16-2022 End: 02-16-[address] Keron Maciel Work Phone: [facility] Work Phone: Start: 02-16-2022 End: 02-16-[address] Keron Maciel Work Phone: [facility]-Laboratory Start: 02-14-2022 End: 02-14-[address] Keron Maciel Work Phone: [facility] Internal Medicine Start: 02-08-2022 End: 02-08-[address] Keron Maciel Work Phone: [facility] Internal Medicine Start: 02-01-2022 End: 02-01-2022 Emergency department patient visit Dr. Keron Maciel Work Phone: [facility]-Emergency Department Start: 10-29-2021 End: 10-29-2021 Admission to same day surgery center Dr. Keron Maciel Work Phone: [facility]-Toe Sewer/Special Procedures Start: 10-26-2021 End: 10-26-[address] Keron Maciel Work Phone: [facility] Start: 10-13-2021 End: 10-13-[address] Keron Maciel Work Phone: [facility]-Laboratory, [facility] Start: 10-13-2021 End: 10-13-[address] Keron Maciel Work Phone: [facility] Internal Medicine Start: 10-11-2021 End: 10-11-[address] Keron Maciel Work Phone: [facility] Neurology Start: 09-07-2021 End: 09-07-[address] Keron Maciel Work Phone: [facility] Endocrinology Start: 08-05-2021 End: 08-05-[address] Keron Maciel Work Phone: [facility]-Pulmonary Medicine [facility] Start: 07-13-2021 End: 07-13-[address] Keron Maciel Work Phone: [facility] Neurology Start: 06-22-2021 End: 06-22-[address] Keron Maciel Work Phone: [facility]-Laboratory Procedures Date Procedure Procedure Detail Performing Clinician Start: 01-08-2025 Blood count smear mc rscp w/mnl difrntl wbc count Dr. Keron Maciel MD Work Phone: Start: 01-08-[address] Keron Maciel MD Work Phone: Start: 01-08-2025 Mean corpuscular hem oglobin concentration determination Dr. Keron Maciel MD Work Phone: Start: 01-08-2025 Nucleated red blood cell count procedure Dr. Keron Maciel MD Work Phone: Start: 01-08-2025 Platelet mean volume determination Dr. Keron Maciel MD Work Phone: Start: 01-07-[address] Keron Maciel MD Work Phone: Start: 01-07-2025 Plain chest X-ray Dr. John Maciel MD Work Phone: Start: 01-07-2025 Blood count smear mc rscp w/mnl difrntl [...] PA-C Work Phone: Start: 09-06-2016 End: 09-06-2016 GARAGE DOOR TECHNICIAN Audelia Espinoza PA-C Work Phone: Start: 09-06-2016 End: 09-06-2016 Follow Up Appt 6 months Audelia Espinoza PA-C Work Phone: Start: 09-06-2016 End: 09-06-2016 Follow Up Appt Other Audelia Espinoza PA-C Work Phone: Start: 08-22-2016 End: 09-07-2016 DMB Lela Masoud Whit SALES ASSOCIATE CASHIER Work Phone: Start: 08-22-2016 End: 09-07-2016 Echo tthrc r-t 2d w/wom-mode compl spec&colr d Lela S Sherman SALES ASSOCIATE CASHIER Work Phone: Start: 08-22-2016 End: 09-07-2016 Follow Up Appt 3 months Lela fonseca SALES ASSOCIATE CASHIER Work Phone: Start: 08-22-2016 End: 08-23-2016 Natriuretic peptide B [Mass/volume] in Blood Lela Meredith Sherman SALES ASSOCIATE CASHIER Work Phone: Start: 06-08-2016 End: 08-18-2016 *MISC - Miscellaneous Lab Test #1 Lela Masoud Whit SALES ASSOCIATE CASHIER Work Phone: Start: 05-20-2016 End: 05-20-2016 Follow [...] 04-29-2016 Follow Up Appt 6 weeks Americo M Brown DO Work Phone: Start: 02-08-2016 End: 03-18-2016 [...] of coronary artery stent placement Zhen Simons [employer]AT[employer] Comment on above: RUDDY to Prox-Mid LAD [...] David Ashton MD Start: 12-04-2014 End: 12-04-2014 GARAGE DOOR TECHNICIAN Audelia Espinoza PA-C Work Phone: Start: 12-04-2014 End: 12-05-2014 Documentation of current medications Audelia Espinoza PA-C Work Phone: Start: 12-04-2014 End: 12-04-2014 Ecg routine ecg w/least 12 lds w/i&r Audelia Espinoza PA-C Work Phone: Start: 12-04-2014 End: 12-04-2014 Follow Up Appt 6 months Audelia Espinoza PA-C Work Phone: Start: 12-04-2014 End: 06-25-2015 [facility] Work Phone: Start: 05-29-2014 End: 06-30-2014 24 hour holter monitor David Ashton MD Start: 05-29-2014 End: 05-29-2014 Follow Up Appt 6 months Libia Liu Start: 05-29-2014 End: 05-29-2014 CAROLINE Ashton MD Start: 12-31-2013 End: 12-31-2013 GARAGE DOOR TECHNICIAN Audelia Espinoza PA-C Work Phone: Start: 12-31-2013 End: 12-31-2013 Follow Up Appt 6 months Audelia Espinoza PA-C Work Phone: Start: 06-25-2013 End: 06-25-2013 Ecg routine ecg w/least 12 lds w/i&r David Ashton MD Start: 06-25-2013 End: 06-25-2013 Follow Up Appt 6 months Libia Liu Start: 06-25-2013 End: 06-25-2013 MMLibia Ashton MD Start: 05-19-2013 End: 06-21-2013 *Hepatic [...] DTaP,Tdap,Td Vaccine (4 - Td or Tdap) [facility] Start: 02-02-2032 Urine microalbumin profile DTaP,Tdap,Td Vaccine (3 - Td or Tdap) [facility] Start: 03-21-2025 End: 03-21-2025 Patient encounter procedure 03/21/2025 1:40 PM EDT Office Visit Podiatry [address] [place], [place] [id number] Barbie Nova [address] [place] [address] 3 month follow up nail care Podiatry Comment on above: 3 month follow up nail care Start: 02-17-2025 Influenza vaccination Influenza Vaccine (Season Ended) [facility] Start: 01-08-2025 Patient discharge [facility] Start: 01-07-2025 Referral to service [facility] Start: 01-07-2025 Referral to occupational therapist [facility] Start: 01-07-2025 Following clinical pathway protocol [facility] Start: 01-07-2025 Application of intermittent pneumatic compression device [facility] Start: 01-07-2025 Assessment of risk of venous thromboembolism [facility] Start: 01-07-2025 Insertion of catheter into peripheral vein [facility] Start: 01-07-2025 Oxygen therapy [facility] Start: 01-07-2025 Providing care according to standard [facility] Start: 01-07-2025 Provision of activity privileges [facility] Start: 01-07-2025 Referral to service [facility] Start: 01-07-2025 Verification routine [facility] Start: 01-07-2025 Admission procedure [facility] Start: 01-07-2025 Hospital admission, emergency, from emergency room, medical nature [facility] Start: 01-07-2025 End: 01-07-2025 [facility] Start: 01-07-2025 [facility] Start: 12-31-2024 [facility] Start: 12-23-2024 Evaluation of diagnostic study results [facility] Start: 12-21-2024 [facility] Start: 12-21-2024 [facility] Start: 12-06-2024 End: 12-06-2024 Patient encounter procedure 12/06/2024 3:40 PM EDT Office Visit Podiatry [address] [place], [place] [id number] Barbie Nova [address] [place] [address] 3 mo f/u Podiatry Comment on above: 3 mo f/u Start: 11-25-2024 Basic metabolic 2008 panel with ionized calcium - Serum or Plasma [facility] Start: 11-25-2024 CBC W Auto Differential panel - Blood [facility] Start: 11-25-2024 Natriuretic peptide.B prohormone N-Terminal [Mass/volume] in Serum or Plasma [facility] Start: 11-25-2024 Evaluation of diagnostic study results [facility] Start: 11-20-2024 End: 11-20-2024 [facility] Start: 11-19-2024 Bacteria identified in Urine by Culture Urine Culture [facility] Start: 09-06-2024 End: 09-06-2024 Patient encounter procedure 09/06/2024 1:20 PM EDT Office Visit Podiatry [address] [place] [address] Barbie Nova [address] [id number] 3 month follow up nail care Podiatry Comment on above: 3 month follow up nail care Start: 06-19-2024 Advance Directive Discussion Advance Directive Discussion [facility] Start: 06-19-2024 Medicare Advantage Annual Wellness Visit Medicare Advantage Annual Wellness Visit [facility] Start: 02-23-2024 End: 02-23-2024 Patient encounter procedure 02/23/2024 2:00 PM EDT Office Visit Podiatry [address] [place] [address] WendyBarbie saez [address] [place] [address] 3 month follow up nail care Podiatry Comment on above: 3 month follow up nail care Start: 02-18-2024 Covid-19 Vaccine ( season) Covid-19 Vaccine () [facility] Start: 02-18-2024 Covid-19 Vaccine () Covid-19 Vaccine () [facility] Start: 02-18-2024 Influenza vaccination [facility] Start: 07-16-2023 [facility] Start: 07-16-2023 [facility] Start: 06-19-2023 Advance Directive Discussion Advance Directive Discussion [facility] Start: 06-19-2023 Behavioral Health Screening Behavioral Health Screening [facility] Start: 06-19-2023 Depression Assessment Depression Assessment [facility] Start: 02-17-2023 Covid-19 Vaccine ( season) Covid-19 Vaccine () [facility] Start: 02-17-2023 Influenza vaccination Influenza Vaccine (#1) [facility] Start: 10-10-2022 Patient referral [facility] Work Phone: Start: 02-01-2022 Simple repair f/e/e/n/l/m 2.6cm-5.0 cm RPR F/E/E/N/L/M 2.6-5.0 CM [facility] Work Phone: Start: 09-17-2021 Diabetic foot examination Diabetic Foot Exam [facility] Start: 09-14-2021 Hepatitis B surface antibody level LDL Cholesterol [facility] Start: 04-07-2021 Glaucoma screening Dilated Retinal Exam [facility] Start: 03-30-2021 Hemoglobin A1c measurement HbA1C [facility] Start: 01-19-2021 Hepatitis B screening Urine Albumin:Creatinine Ratio [facility] Start: 09-06-2017 End: 09-06-2017 Appointment Appointment [facility] [employer] Work Phone: Start: 05-22-2017 End: 05-22-2017 Appointment Appointment [facility] Work Phone: Start: 05-09-2017 End: 05-09-2017 Hepatobiliary imaging NM HIDA Scan with EF [facility] [employer] Work Phone: Start: 05-09-2017 End: 05-09-2017 Us abdominal real time w/image documentation US Abdomen, RUQ [facility] Work Phone: Start: 05-09-2017 End: 05-09-2017 Appointment Appointment [facility] [employer] Work Phone: Start: 03-09-2017 End: 03-09-2017 Follow Up Appt 6 months Follow Up Appt 6 months [facility] [employer] Work Phone: Start: 03-09-2017 End: 03-09-2017 MMM MMM [employer] Work Phone: Start: 01-20-2017 End: 01-20-2017 *BMP *BMP [facility] Work Phone: Start: 01-20-2017 End: 01-20-2017 *CBC with Differential *CBC with Differential [facility] [employer] Work Phone: Start: 01-20-2017 End: 01-20-2017 BNP *Brain Natriuretic Peptide BNP [facility] [employer] Work Phone: Start: 01-20-2017 End: 01-20-2017 Chest x-ray X-Ray, Chest, PA & Lateral [facility] [employer] Work Phone: Start: 01-20-2017 End: 01-20-2017 Follow Up Appt Other Follow Up Appt Other [facility] [employer] Work Phone: Start: 11-28-2016 End: 11-28-2016 DMB DMB [facility] Work Phone: Start: 11-28-2016 End: 11-28-2016 Follow Up Appt 1 year Follow Up Appt 1 year [facility] [employer] Work Phone: Start: 09-06-2016 End: 09-06-2016 GARAGE DOOR TECHNICIAN GARAGE DOOR TECHNICIAN [facility] [employer] Work Phone: Start: 09-06-2016 End: 09-06-2016 Follow Up Appt 6 months Follow Up Appt 6 months [facility] [employer] Work Phone: Start: 09-06-2016 End: 09-06-2016 Follow Up Appt Other Follow Up Appt Other [facility] [employer] Work Phone: Start: 08-22-2016 End: 08-23-2016 BNP *Brain Natriuretic Peptide BNP [facility] [employer] Work Phone: Start: 08-22-2016 End: 09-07-2016 DMB DMB [facility] [employer] Work Phone: Start: 08-22-2016 End: 09-07-2016 Echo tthrc r-t 2d w/wom-mode compl spec&colr d Echo Complete with Color Flow [facility] [employer] Work Phone: Start: 08-22-2016 End: 09-07-2016 Follow Up Appt 3 months Follow Up Appt 3 months [facility] [employer] Work Phone: Start: 06-08-2016 End: 08-18-2016 *MISC - Miscellaneous Lab Test #1 *MISC - Miscellaneous Lab Test #1 [facility] [employer] Work Phone: Start: 05-31-2016 End: 05-31-2016 DMB DMB [facility] [employer] Work Phone: Start: 05-31-2016 End: 05-31-2016 Follow Up Appt 4 months Follow Up Appt 4 months [facility] [employer] Work Phone: Start: 05-20-2016 End: 05-20-2016 Follow Up Appt 6 months Follow Up Appt 6 months [facility] [employer] Work Phone: Start: 05-20-2016 End: 05-20-2016 MMM MMM [facility] [employer] Work Phone: Start: 04-20-2016 End: 10-20-2015 *Hepatic Function Panel *Hepatic Function Panel [facility] [employer] Work Phone: Start: 04-20-2016 End: 10-20-2015 Lipid panel [AGGREGATE] *Lipid Profile CC PCP [facility] [employer] Work Phone: Start: 03-21-2016 End: 03-21-2016 *CBC with Differential *CBC with Differential [facility] [employer] Work Phone: Start: 03-21-2016 End: 04-29-2016 Assay of ferritin Ferritin [facility] [employer] Work Phone: Start: 03-21-2016 End: 03-21-2016 DMB DMB [facility] Work Phone: Start: 03-21-2016 End: 03-21-2016 Follow Up Appt 6 weeks Follow Up Appt 6 weeks [facility] [employer] Work Phone: Start: 03-21-2016 End: 03-21-2016 Iron and Iron binding capacity panel - Serum or Plasma *IBC Iron & Total Iron Binding Capacity [facility] [employer] Work Phone: Start: 03-21-2016 End: 03-21-2016 Reticulocytes/100 erythrocytes *Reticulocyte Count [facility] [employer] Work Phone: Start: 03-14-2016 End: 03-14-2016 Left Heart Cath Left Heart Cath [facility] [employer] Work Phone: Start: 03-09-2016 End: 03-09-2016 CBC W Auto Differential panel - Blood *CBC without Diff [facility] [employer] Work Phone: Start: 03-08-2016 End: 03-09-2016 *BMP *BMP [facility] [employer] Work Phone: Start: 03-08-2016 End: 03-09-2016 BNP *Brain Natriuretic Peptide BNP [facility] [employer] Work Phone: Start: 03-08-2016 End: 03-09-2016 Ct angiography chest w/contrast/noncontrast CTA Chest, with contrast material(s) [facility] [employer] Work Phone: Start: 03-08-2016 End: 03-08-2016 Ecg routine ecg w/least 12 lds w/i&r EKG (In office) [facility] [employer] Work Phone: Start: 03-08-2016 End: 03-08-2016 Follow Up Appt 6 weeks Follow Up Appt 6 weeks [facility] [employer] Work Phone: Start: 03-08-2016 End: 03-08-2016 MMM MMM [employer] Work Phone: Start: 02-08-2016 End: 04-29-2016 DMB DMB [facility] [employer] Work Phone: Start: 02-08-2016 End: 04-29-2016 Follow Up Appt 6 weeks Follow Up Appt 6 weeks [facility] [employer] Work Phone: Start: 02-08-2016 End: 03-18-2016 Pulmonary Function Test - complete Pulmonary Function Test - complete [facility] [employer] Work Phone: Start: 10-15-2015 End: 10-19-2015 *Hepatic Function Panel *Hepatic Function Panel [facility] [employer] Work Phone: Start: 10-15-2015 End: 10-15-2015 Follow Up Appt 6 months Follow Up Appt 6 months [facility] Work Phone: Start: 10-15-2015 End: 10-19-2015 Lipid panel [AGGREGATE] *Lipid Profile CC PCP [facility] [employer] Work Phone: Start: 10-15-2015 End: 10-15-2015 MMM MMM [facility] [employer] Work Phone: Start: 08-27-2015 End: 08-27-2015 Follow Up Appt 6 weeks Follow Up Appt 6 weeks [facility] [employer] Work Phone: Start: 08-27-2015 End: 08-27-2015 MMM MMM [facility] Work Phone: Start: 08-06-2015 End: 08-06-2015 *BMP *BMP [facility] Work Phone: Start: 08-06-2015 End: 08-06-2015 BNP *Brain Natriuretic Peptide BNP [facility] [employer] Work Phone: Start: 08-06-2015 End: 08-06-2015 CBC W Auto Differential panel - Blood *CBC without Diff [facility] [employer] Work Phone: Start: 08-06-2015 End: 08-06-2015 Follow up Appt 3 weeks Follow up Appt 3 weeks [facility] [employer] Work Phone: Start: 08-06-2015 End: 08-06-2015 MMM MMM [facility] [employer] Work Phone: Start: 07-16-2015 End: 08-27-2015 Cardiac Rehab Cardiac Rehab [facility] [employer] Work Phone: Start: 07-16-2015 End: 07-16-2015 Ecg routine ecg w/least 12 lds w/i&r EKG (In office) [facility] [employer] Work Phone: Start: 07-16-2015 End: 07-16-2015 Follow Up Appt 6 weeks Follow Up Appt 6 weeks [facility] [employer] Work Phone: Start: 07-16-2015 End: 07-16-2015 MMM MMM [facility] Work Phone: Start: 06-16-2015 End: 06-17-2015 BNP *Brain Natriuretic Peptide BNP [facility] [employer] Work Phone: Start: 06-16-2015 End: 06-16-2015 Ecg routine ecg w/least 12 lds w/i&r EKG (In office) [facility] [employer] Work Phone: Start: 06-16-2015 End: 06-16-2015 Echocardiography Echocardiogram (complete) [facility] [employer] Work Phone: Start: 06-16-2015 End: 07-16-2015 Follow Up Appt 6 months Follow Up Appt 6 months [facility] [employer] Work Phone: Start: 06-16-2015 End: 07-16-2015 MMM MMM [facility] Work Phone: Start: 12-04-2014 End: 12-04-2014 GARAGE DOOR TECHNICIAN GARAGE DOOR TECHNICIAN [facility] [employer] Work Phone: Start: 12-04-2014 End: 12-04-2014 Ecg routine ecg w/least 12 lds w/i&r EKG (In office) [facility] [employer] Work Phone: Start: 12-04-2014 End: 12-04-2014 Follow Up Appt 6 months Follow Up Appt 6 months [facility] [employer] Work Phone: Start: 12-04-2014 End: 12-04-2014 Nuclear stress test -Lexiscan Nuclear stress test -Lexiscan [facility] [employer] Work Phone: Start: 05-29-2014 End: 05-29-2014 24 hour holter monitor 24 hour holter monitor [facility] [employer] Work Phone: Start: 05-29-2014 End: 05-29-2014 Follow Up Appt 6 months Follow Up Appt 6 months [facility] [employer] Work Phone: Start: 05-29-2014 End: 05-29-2014 MMM MMM [facility] [employer] Work Phone: Start: 12-31-2013 End: 12-31-2013 GARAGE DOOR TECHNICIAN GARAGE DOOR TECHNICIAN [facility] [employer] Work Phone: Start: 12-31-2013 End: 12-31-2013 Follow Up Appt 6 months Follow Up Appt 6 months [facility] [employer] Work Phone: Start: 06-25-2013 End: 06-25-2013 Ecg routine ecg w/least 12 lds w/i&r EKG (In office) [facility] [employer] Work Phone: Start: 06-25-2013 End: 06-25-2013 Follow Up Appt 6 months Follow Up Appt 6 months [facility] [employer] Work Phone: Start: 06-25-2013 End: 06-25-2013 MMM MMM [facility] [employer] Work Phone: Start: 05-19-2013 End: 06-21-2013 *Hepatic Function Panel *Hepatic Function Panel [facility] [employer] Work Phone: Start: 05-19-2013 End: 06-21-2013 Lipid panel [AGGREGATE] *Lipid Profile CC PCP [facility] [employer] Work Phone: Start: 11-17-2012 End: 12-05-2012 *Hepatic Function Panel *Hepatic Function Panel [facility] [employer] Work Phone: Start: 11-17-2012 End: 12-05-2012 Lipid panel [AGGREGATE] *Lipid Profile [facility] [employer] Work Phone: Start: 2012 RSV Vaccine (1 - 1-dose 75+ series) RSV Vaccine (1 - 1-dose 75+ series) [facility] Start: 06-21-2012 End: 06-21-2012 Follow Up Appt 1 year Follow Up Appt 1 year [facility] [employer] Work Phone: Start: 06-23-2011 End: 06-23-2011 Follow Up Appt 1 year Follow Up Appt 1 year [facility] Work Phone: Start: 06-21-2011 Shingrix Vaccine (2 of 3) Shingrix Vaccine (2 of 3) [facility] Start: 1997 RSV Vaccine (1 - 1-dose 60+ series) RSV Vaccine (1 - 1-dose 60+ series) [facility] Start: [birth year]-20-1953 Depression Screening Depression Screening [facility] Anion gap in Serum or Plasma [facility] BUN/Creatinine ratio [facility] Calcium [Mass/volume ] in Serum or Plasma [facility] Carbon dioxide, tota l [Moles/volume] in Central venous blood [facility] Catheterization of left heart [facility] Work Phone: Creatinine [Mass/vol ume] in Serum or Plasma [facility] Electrocardiographic procedure [facility] Erythrocyte mean cor puscular volume determination [facility] Glucose [Mass/volume ] in Serum or Plasma [facility] Hematocrit [Volume F raction] of Blood [facility] Hemoglobin [Mass/vol ume] in Blood [facility] Leukocytes [#/volume ] in Blood [facility] Mean corpuscular hem oglobin concentration determination [facility] Mean corpuscular hem oglobin determination [facility] Measurement of renal function [facility] Neutrophil count [facility] Neutrophil percent differential count [facility] NM Heart Views W str ess and W radionuclide IV [facility] Patient Education [facility] Work Phone: Patient referral [facility] Work Phone: Platelets [#/volume] in Blood [facility] Potassium measurement [facility] Red blood cell count [facility] Red cell distributio n width determination [facility] Serum chloride measurement [facility] Sodium measurement [facility] Urea nitrogen [Mass/ volume] in Serum or Plasma [facility] Urine culture [facility] Urine culture [facility] US Heart [facility] XR Chest PA and Lateral [facility] Immunizations Immunization Date Immunization Notes Care Provider Fa [facility] 12-31-2024 tetanus toxoid, redu anuradha diphtheria toxoid, and acellular pertussis vaccine, adsorbed Dr. Keron Maciel MD Work Phone: [facility] 11-12-2023 tetanus toxoid, redu anuradha diphtheria toxoid, and acellular pertussis vaccine, adsorbed Dr. Keron Maciel MD Work Phone: [facility] 02-01-2022 tetanus toxoid, redu anuradha diphtheria toxoid, and acellular pertussis vaccine, adsorbed Dr. Keron Maciel Work Phone: [facility] 08-07-2020 Covid (Moderna) Dr. Keron hdez Work Phone: [facility] 07-10-2020 Covid (Moderna) Dr. Keron hdez Work Phone: [facility] 03-07-2020 influenza virus vacc ine, unspecified formulation Barbie Nova Work Phone: [facility] 02-07-2020 tetanus toxoid, redu anuradha diphtheria toxoid, and acellular pertussis vaccine, adsorbed Dr. Keron Maciel Work Phone: [facility] 03-07-2019 influenza, high dose seasonal, preservative-free Barbie Testse Work Phone: [facility] 03-03-[address] Keron Maciel Work Phone: [facility] 03-08-2018 influenza, injectabl e, quadrivalent, contains preservative Barbie Testse Work Phone: [facility] 03-08-2018 influenza, injectabl e, quadrivalent, preservative free Dr. Keron Maciel MD Work Phone: [facility] 04-07-2015 influenza, injectabl e, quadrivalent, preservative free Dr. Keron Maciel Work Phone: [facility] 04-07-2015 influenza, seasonal, injectable Dr. Keron Maciel Work Phone: [facility] 03-19-2015 influenza, high dose seasonal, preservative-free Barbie Testse Work Phone: [facility] 03-19-2015 influenza, injectabl e, quadrivalent, preservative free Dr. Keron Maciel MD Work Phone: [facility] 12-23-2014 pneumococcal conjuga te vaccine, 13 valent Barbie NuV[employer] Work Phone: [facility] 06-19-2014 influenza, injectabl e, quadrivalent, preservative free Dr. Keron Maciel MD Work Phone: [facility] 04-03-2013 influenza virus vacc ine, unspecified formulation [employer]bie [employer] Work Phone: [facility] 04-26-2011 zoster vaccine, live Barbie [employer] Work Phone: [facility] Work Phone: 04-05-2010 influenza virus vacc ine, unspecified formulation Barbie [employer] Work Phone: [facility] 03-19-2009 influenza virus vacc ine, unspecified formulation Barbie [employer] Work Phone: [facility] 11-17-2005 tetanus and diphther ia toxoids, adsorbed, preservative free, for adult use (2 Lf of tetanus toxoid and 2 Lf of diphtheria toxoid) Barbie Nguyenkenyetta Work Phone: [facility] 04-28-2005 influenza virus vacc ine, unspecified formulation Barbie Nova Work Phone: [facility] Work Phone: 03-19-2004 influenza virus vacc ine, whole virus Barbiepercy Terry Work Phone: [facility] 04-29-2003 pneumococcal polysaccharide vaccine, 23 valent [employer]bie [employer] Work Phone: [facility] 04-29-[address] Elisabeth Maciel Work Phone: [facility] Work Phone: 04-29-2003 pneumococcal vaccine , unspecified formulation Dr. Keron Maciel Work Phone: [facility] 03-19-2003 influenza virus vacc ine, whole virus Barbiepercy Terry Work Phone: [facility] Payers Date Payer Category Payer Self-pay [id number] 2017 Medicare AETNA MEDICARE A ETNA MEDICARE PPO [id number] 2017-Present [phone] [facility] [id number] [place] [address] O [id number] 2017 Medicare (Managed Care) [place] [id number] 2017 Private Health Insurance [facility] [id number] 2006 Unknown [id number] Medicare [id number] Medicare [id number] Unknown [id number] 2.16.840.1.504328.3.579.2. 462 Unknown [id number] 2.16.840.1.174086.3.579.2. 462 Unknown [id number] 2.16.840.1.676639.3.579.2. 462 Unknown [id number] 2.16.840.1.208846.3.579.2. 462 Unknown [id number] 2.16.840.1.515525.3.579.2. 462 Unknown [id number] 2.16.840.1.953585.3.579.2. 462 Unknown [id number] 2.16.840.1.722632.3.579.2. 462 Unknown [id number] 2.16.840.1.249361.3.579.2. 462 Unknown [id number] 2.16.840.1.790069.3.579.2. 462 Unknown [id number] 2.16.840.1.676624.3.579.2. 462 Unknown [id number] 2.16.840.1.408627.3.579.2. 462 Unknown [id number] 2.16.840.1.781232.3.579.2. 462 Unknown [id number] 2.16.840.1.205995.3.579.2. 462 Unknown [id number] 2.16.840.1.807036.3.579.2. 462 Unknown [id number] 2.16.840.1.766821.3.579.2. 462 Unknown [id number] 2.16.840.1.290284.3.579.2. 462 Unknown [id number] 2.16.840.1.408665.3.579.2. 462 Unknown [id number] 2.16.840.1.464952.3.579.2. 462 Unknown [id number] 2.16.840.1.526804.3.579.2. 462 Unknown [id number] 2.16.840.1.354292.3.579.2. 462 Unknown [id number] 2.16.840.1.955925.3.579.2. 462 Unknown [id number] 2.16.840.1.996211.3.579.2. 462 Unknown [id number] 2.16.840.1.117203.3.579.2. 462 Unknown [id number] 2.16.840.1.306762.3.579.2. 462 Unknown [id number] 2.16.840.1.369780.3.579.2. 462 Unknown [id number] 2.16.840.1.027689.3.579.2. 462 Unknown [id number] 2.16.840.1.840682.3.579.2. 462 Unknown [id number] 2.16.840.1.080060.3.579.2. 462 Unknown [id number] 2.16.840.1.560501.3.579.2. 462 Unknown [id number] 2.16.840.1.465802.3.579.2. 462 Unknown [id number] 2.16.840.1.085872.3.579.2. 462 Unknown [id number] 2.16.840.1.678625.3.579.2. 462 Unknown [id number] 2.16.840.1.200352.3.579.2. 462 Unknown [id number] 2.16.840.1.779349.3.579.2. 462 Unknown [id number] 2.16840.1.288299.3.579.2. 462 Social History Date Type Detail Facility Start: 10-13-2021 End: 09-14-2023 Tobacco smoking status VTIS Unknown if ever smoked [facility] Start: 02-12-2020 None [facility] Start: 02-12-2020 Spouse/ Signif icant Other [facility] Start: 02-12-2020 Non-smoker [facility] Start: 1935 Sex Assigned At Male W [facility] Start: 11-01-2010 End: 01-07-2025 Tobacco smoking status NHIS Ex-smoker [facility] Work Phone: Start: 10-18-1959 End: 10-17-1964 History of tobacco use Current smoker [facility] Work Phone: Start: 10-18-1959 End: 10-17-1964 History of tobacco use Cigarette Smoker [facility] Work Phone: Start: 11-01-2010 End: 07-31-2023 Cigarettes smoked current (pack per day) - Reported 1 [facility] Start: 11-01-2010 Tobacco use and exposure Smokeless tobacco non-user [facility] Work Phone: Start: 07-31-2023 End: 12-13-2024 Alcohol intake Current non-drinker of alcohol (finding) [facility] Start: 09-24-2018 End: 07-31-2023 Tobacco use panel [facility] Adult Depression Screening Assessment 0 [facility] Start: 1935 Sex Assigned At Not on file [facility] Start: 06-16-2024 Tobacco Use Tobacco Use [facility] Medical Equipment Procedure Code Equipment Code [...] x 1/4 needle Start: 12-25-2020 End: 12-25-2020 Goals Date Patient Goal Desired Activity /State Functional Status Date Assessment Result Facility 01-08-2025 Functional status Ambulates [facility] Work Phone: 05-03-2017 Are you deaf, or do you have serious difficulty hearing No 05/03/2017 3:51 PM Soham Mcgraw III, MD No [facility] 05-03-2017 Are you blind, or do you have serious difficulty seeing, even when wearing glasses No 05/03/2017 3:51 PM Soham Mcgraw III, MD No [facility] 05-03-2017 Do you have serious difficulty walking or climbing stairs No 05/03/2017 3:51 PM Soham Mcgraw III, MD No [facility] 05-03-2017 Do you have difficul ty dressing or bathing No 05/03/2017 3:51 PM Soham Mcgraw III, MD No [facility] 05-03-2017 Because of a physica l, mental, or emotional condition, do you have difficulty doing errands alone such as visiting a physician's office or shopping No 05/03/2017 3:51 PM Soham Mcgraw III, MD [facility] Mental Status Date Assessment Result Facility 01-08-2025 Cognitive function Voice/Name [facility] Work Phone: 01-08-2025 Cognitive function Voice/Name [facility] Work Phone: 01-07-2025 Cognitive function Awake;Alert;A ppropriate; Follows Commands [facility] Work Phone: 05-03-2017 Because of a physica l, mental, or emotional condition, do you have serious difficulty concentrating, remembering, or making decisions No 05/03/2017 3:51 PM Soham Mcgraw III, MD [facility] Clinical Notes 07-01-2015 to 01-08-2025 Note Date & Type Note Facility 01-08-2025 Discharge summary Note Date/Time January 08, 2025 11:20am [facility] Medical Records Department [address] [place] [address] Instructions for Home/Discharge Instructions 01/08/25 1117 MR#: [id number] Acct: [id number] Name: OLMAN SYED Rep #:[id number] : 1935 89 From: Dia Ovalle MD PCP: Dr. Keron Maciel MD Status:ADM IN Discharge Instructions DC O2, CPAP, BIPAP needs Home O2 Discharge instructions: No Dressing / Incision Weight Bearing Status: Weight bearing as tolerated Dressing / Incision Call your doctor if you observe: Fever of 101 or Higher, Shortness of breath andDizziness Follow Up Care Test Results: Test results from this visit will be discussed in further detail at your follow-up appointment, if applicable. Discharge Plan Admission Admit Date/Time: 01/07/25 03:22 Primary Reason for Your Visit: debility, mechanical falls, UTI Attending Provider: Dia Ovalle Primary Care Provider: Keron Maciel Consulting Providers: Junior Valverde Instructions Patient Instructions: ED Urinary Tract Infections in Men Discharge Orders/Prescriptions Prescriptions: New nitrofurantoin monohyd/m-cryst [Macrobid] 100 mg capsule 100 mg PO BID Qty: 10 0RF Rx Instructions: must administer with a meal/food Continued PreserVision AREDS 7,160 unit- 113 mg-100 [...] 70/30 U-100 Insulin 100 unit/mL (70-30) suspension 28 unit subcut BID Rx Instructions: subcutaneously twice a [...] PRN PRN (Reason: Pain Score 1-3/10) 0RF zinc acetate 50 mg (zinc) capsule 50 mg PO DAILY ferrous sulfate [Feosol] 325 mg (65 mg iron) tablet 65 mg PO DAILY cyanocobalamin (vitamin B-12) [Vitamin [...] 75 mg PO DAILY Qty: 90 3RF Referrals / Follow Up: Keron Maciel MD [Primary Care Provider] - Within 1 Week Disposition Disposition (needs filled in before D/C Order can be placed): Home, Self Care 01/08/25 1120<Electronically signed by Dia Ovalle MD>Dia Ovalle MD CC: Dr. Keron Maciel MD; Dr. Junior Valverde MD ~ Signed [facility] Work Phone: 1(186) 224-452407-23-2025 [facility]07-22-2025 Progress note Author [facility] Note Date/Time January 07, 2025 1:56 pm [facility] Medical Records Department [address] [place] [address] Progress Note 01/07/25 1351 MR#: [id number] Acct: [id number] Name: OLMAN SYED Rep #:[id number] : 1935 89 From: Dia Ovalle MD PCP: Dr. Keron Maciel MD Status:ADM IN Location: [place] [address]1 Subjective Subjective Patient seen and examined. He was admitted with a complaint of mechanical falls. He had no active complaints right now. He was seen with his nurse by his bedside. He denied any fever or chills, headache, palpitations, nausea vomiting or any other symptoms. Review of systems otherwise negative. He has remained hemodynamically stable. Objective Data Objective Data Vital Signs: Vital Signs Temp Pulse Resp BP Pulse Ox O2 Del Method 98.3 F 72 18 136/78 H 95 Room Air 01/07/25 08:16 01/07/25 08:16 01/07/25 08:16 01/07/25 08:16 01/07/25 08:16 01/07/25 10:12 Oxygen Delivery Method Room Air Weight: 220 lb 14.451 oz Body Mass Index (BMI) 37.9 Intake & Output: Intake and Output for Last 24 Hours 01/05/25 01/06/25 01/07/25 23:59 23:59 23:59 Intake Total 1110 / 1110 Output Total 400 / 400 Balance 710 / 710 Lab / Micro Data 01/07/25 06:09 01/07/25 06:09 Labs: Laboratory Results - last 24 hr 01/07/25 01:20: Urine Color Yellow, Urine Clarity Clear, Urine pH 6.0, Ur Specific [place] 1.015, Urine Protein 30 H, Urine Glucose [...] (Auto) 79.1 H, Lymph % (Auto) 10.0L, [place] % (Auto) 8.0, Eos % (Auto) 1.4, [...] Free T4 1.20, Free T3 pg/dL 2.5 01/07/25 06:09: WBC 7.7, RBC 3.85 L, Hgb 12.8 L, Hct 37.4 L, MCV 97.1 H, MCH 33.2 H, MCHC 34.2, RDW Std Deviation 48.9 H, RDW Coeff of Perla 13.8, Plt Count 220, MPV 8.8, Immature Gran % (Auto) 1.000 H, Neut % (Auto) 73.2 H, Lymph % (Auto) 13.3 L, [place] % (Auto) 10.2 H, Eos % (Auto) 1.6, Baso % (Auto) 0.7, Absolute Neuts (auto) 5.6, Absolute Lymphs (auto) 1.02, Nucleated RBC % 0, Sodium 138, Potassium 4.3, Chloride 101, Carbon Dioxide 25.0, Anion Gap 12, BUN 21 H, Creatinine 1.57 H, Estim Creat Clear Calc 35.45 L, Est GFR (MDRD) Non-Af 42 L, BUN/Creatinine Ratio 13.1, Glucose 121 H, Calcium 9.4 01/07/25 06:40: POC Glucose 129 H 01/07/25 08:26: POC Glucose 142 H Radiography Diagnostic Testing: Radiology Impression Brain CT 01/07/25 01:10 IMPRESSION: No acute intracranial findings Reading Location: [facility]- Cervical Spine CT 01/07/25 01:10 IMPRESSION: No acute cervical spine injury. Reading Location: [place] [address] Chest X-Ray 01/07/25 01:49 IMPRESSION: No acute chest findings. Reading Location: [place] [address] Physical Exam Const alert, oriented x3 and no apparent distress General Appearance: cooperative HEENT normocephalic, moist oral mucous membranes and oropharynx normal HEENT Narrative: has ecchymosis beneath his eyes due to mechanical fall Eyes EOMs intact bilaterally Neck no lymphadenopathy and supple Lymph Lymphatic: no lymphadenopathy noted Resp normal respiratory effort, normal air movement and clear to auscultation bilaterally Cardio regular rate, regular rhythm, S1 normal heart sound, S2 normal heart sound and no murmurs GI normal to inspection, nondistended, normoactive bowel sounds, soft to palpation,non-tender and non-distended Extremity normal capillary refill, no clubbing, cyanosis or edema and no calf tenderness General Extremity: no tenderness to palpation of joints or extremities Skin General Skin Exam: no breakdown Neuro CN's II-XII intact bilaterally, no focal motor deficits and no sensory deficits noted Motor Exam: general weakness Psych thought process normal and cooperative Appearance: appropriate Assessment & Plan Assessment/Plan (1) Urinary tract infection: (2) Generalized weakness: (3) Multiple falls: PLAN: Plan # Debility and weakness due to mechanical falls. * Patient had had several falls at home. PT OT on board. Fall precautions. Will benefit from placement. Case management on board to help facilitate this. #UTI: On IV Rocephin. Urine cultures pending. #History of Parkinson's disease: Stable. #BPH: On finasteride #Hypothyroidism: On Synthroid #CAD: On Imdur and aspirin as well as statin and imdur #Type 2 diabetes mellitus: NPH 70/30 insulin twice daily dosing. Also on metformin. Insulin sliding scale. Checks ACHS. #Hypertension: On amlodipine DVT prophylaxis: SCDs Disposition: Will benefit from placement. Charges/Coding Visit Charges Inpatient E&M: 43141 Subs Hosp L2 01/07/25 1356 <Electronically signed by Dia Ovalle MD> Dia Ovalle MD Cosigner Signature (if applicable): CC: ~ Signed [facility] Work Phone: 1(611) 122-848407-22-2025 History and physical note Author Junior Valverde [facility] Note Date/Time January 07, 2025 3:[address] [facility] Medical Records Department [address] [place] [address] History & Physical Exam 01/07/256 MR#: [id number] Acct: [id number] Name: OLMAN SYED Rep #:[id number] : 1935 89 From: Junior Valverde MD PCP: Dr. Keron Maciel MD Status:ADM BRITTANY Location: [place] [address] HPI - General General Date of Admission: [...] help with placement and risk of fall [facility] Medical History Frequent falls Shortness of breath [...] flank pain Anemia Atherosclerotic heart disease of [place] coronary artery without angina pectoris 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 [...] Placard #1 ea 10/14/20 Unknown Rx vitamins A,C,G-rhpg-pcszmq 2,148 1 tab PO BID 12/17/20 Unknown History mcg-113 mg-45 mg-17.4 mg tablet (PreserVision AREDS) pen needle, diabetic 32 gauge x #100 ea 12/25/20 Unkno wn Rx 1/4 Compression stockings (10-20) #2 ea 01/04/24 Unknown [...] Clarity Clear, Urine pH 6.0, Ur Specific [place] 1.015, Urine Protein 30 H, Urine Glucose [...] (Auto) 79.1 H, Lymph % (Auto) 10.0L, [place] % (Auto) 8.0, Eos % (Auto) 1.4, [...] IMPRESSION: No acute intracranial findings Reading Location: [facility]-[address] 01/07/25 01:10 IMPRESSION: No acute cervical spine injury. Reading Location: [facility]-2 Chest X-Ray 01/07/25 01:49 IMPRESSION: No acute chest findings. Reading Location: [facility] Assessment & Plan Assessment/Plan (1) Urinary tract [...] DVT prophylaxis?SCDs Charges/Coding Visit Charges Inpatient E&M: 09557 Init Hosp L2 01/07/25 0322 <Electronically signed by Junior Valverde MD> Cosigner Signature (if applicable): CC: Dr. Keron Maciel MD; Dr. Junior Valverde MD~ Signed [facility] Work Phone: 1(757) 802-228307-22-2025 Discharge summary Author Derick Sorenson [facility] Note Date/Time January 07, 2025 3:[address] [facility] Medical Records Department [address] [place] [address] Emergency Department Summary 01/07/25 MR#: [id number] Acct: [id number] Name: OLMAN SYED Rep #:[id number] : 1935 89 From: Derick Sorenson DO PCP: Dr. Keron Maciel MD Status:REG ER Location: ED ADDENDUM by Dr. Derick Sorenson DO on 01/07/25 at 0315 Patient is EKG reviewed showed sinus rhythm at a rate of 73 bpm with evidence ofright bundle branch block. FL interval 190 01/07/25 0315<Electronically signed by Derick [...] twice at night within a few hours. [facility] Medical History Frequent falls Shortness of breath [...] flank pain Anemia Atherosclerotic heart disease of [place] coronary artery without angina pectoris 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 [...] Placard #1 ea 10/14/20 Unknown Rx vitamins A,C,C-fnbg-igruaz 2,148 1 tab PO BID 12/17/20 Unknown History mcg-113 mg-45 mg-17.4 mg tablet (PreserVision AREDS) pen needle, diabetic 32 gauge x #100 ea 12/25/20 Unkno wn Rx 06/22 Compression stockings (10-20) #2 ea 01/04/24 Unknown [...] 79.1 H Lymph % (Auto) 10.0 L [place] % (Auto) 8.0 Eos % (Auto) 1.4 [...] Clarity Clear Urine pH 6.0 Ur Specific [place] 1.015 Urine Protein 30 H Urine Glucose [...] IMPRESSION: No acute intracranial findings Reading Location: [facility]-[address] 01/07/25 01:10 IMPRESSION: No acute cervical spine injury. Reading Location: [facility]-2 Chest X-Ray 01/07/25 01:49 IMPRESSION: No acute chest findings. Reading Location: [facility]-2 Discharge Plan Triage Chief Complaint: Weakness Other [...] MD [Primary Care Provider] - Print Language: Martiniquais Disposition Disposition: Acute Care Hospital [facility] What to do if you have Problems For any increased pain, shortness of breath, bleeding, nausea or vomiting, chestpain, or any unexpected problems, contact your Primary Care Provider. Call [facility] ([phone]) or report to the closest Emergency Room. Call 911 if necessary. 01/07/25312 <Electronically signed by Derick Sorenson DO> Cosigner Signature (if applicable): CC: Dr. Keron Maciel MD ~ Signed [facility] Work Phone: 1(838) 268-158007-22-2025 [facility]07-22-2025 Radiology Diagnostic study [facility]07-22-2025 Radiology Diagnostic study [facility]07-22-2025 Radiology Diagnostic study [facility]07-15-2025 Radiology Diagnostic study note [facility]07-05-2025 Discharge summary [facility] Medical Records Department [address] [place] [address] Emergency Department Summary 12/21/24 MR#: [id number] Acct: [id number] Name: OLMAN SYED Rep #:[id number] : 1935 89 From: Derick Sorenson DO PCP: Dr. Keron Maciel MD Status:REG ER Location: ED HPI History of Present Illness Chief Complaint: Shortness of Breath Narrative Narrative: Patient is a 89-year-old male with past medical history of Parkinson's disease, TIA, diabetes, CVA,GERD, BPH, hypothyroidism, chronic kidney disease, hypertension, hyperlipidemia who presents to theemergency department chief complaint of shortness of breath. [...] statesthat if he walks a short distance heis very short of breath. [facility] Medical History Pneumonia Parkinson's disease [...] flank pain Anemia Atherosclerotic heart disease of [place] coronary artery without angina pectoris 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 [...] 02/19/20 Unknown Rx PRN Pain Score 1-3/10 Elizabeth Figueroa #1 ea 10/14/20 Unknown Rx vitamins A,C,F-jrio-iinbyk 2,148 1 tab PO BID 12/17/20 Unknown [...] leukocytosis white blood count 5.6, hemothirteen 0.9, platecount 211. Patient's INR 1.1, PT 14.6. Patient sodium was 139, potassium normal at 3.8, creatinine is around his baseline at 1.46. Patient's troponin was 44 with a delta troponin of 42. Patient's EKGreviewed and showed sinus rhythm with evidence of right bundle branch block with a rate of 64 bpm. Patient proBNP was normal at 542. Patient's chest x-ray reviewed and showed stable chest radiograph with left mid/lingular infiltrate given that he is on oral antibiotics azithromycin we will give adrienne dose of Vanco and Zosyn. Ambulated the [...] % (Auto) 60.1 Lymph % (Auto) 24.4 [place] % (Auto) 10.8 H Eos % (Auto) [...] radiograph with left mid/lingular infiltrate. Reading Location: [facility] Chest CT 12/21/24 18:54 IMPRESSION: No acute abnormality Reading Location: [facility] Discharge Plan Triage Chief Complaint: Shortness of [...] not show any acute abnormalities. Print Language: Martiniquais Disposition Disposition: Home, Self Care What to do if you have Problems For any increased pain, shortness of breath, bleeding, nausea or vomiting, chestpain, or any unexpected problems, contact your Primary Care Provider. Call [facility] ([phone]) or report tothe closest Emergency Room. Call 911 if necessary. 12/21/242031 Cosigner Signature (if applicable): CC: Dr. Keron Maciel MD ~ Signed [facility]07-05-2025 Radiology Diagnostic study note [facility] Imaging Services [address] [place] [address] Chest without Contrast MR#: [id number] Acct: [id number] Name: OLMAN SYED Rep #: [id number] : 1935 89 From: Juana Jimenez MD PCP: Dr. Keron Maciel MD Status: REG ER Study:Chest without Contrast Date of Exam: 12/21/24 Exam# [id number] Ordering Dr: Rhonda Sorenson DO PROCEDURE: CHEST [...] Contrast IMPRESSION: No acute abnormality [facility] CC: Dr. Keron Maciel MD; Dr. Derick Sorenson DO ~ Fire Truck Driver: Signed [facility]07-05-2025 Radiology Diagnostic study note [facility] Imaging Services [address] [place] [address] Chest PA and Lateral MR#: [id number] Acct: [id number] Name: OLMAN SYED Rep #: [id number] : 1935 M 89 From: Babita Myers MD PCP: Dr. Keron Maciel MD Status: REG ER Study:Chest PA and Lateral Date of Exam: 12/21/24 Exam# [id number] Ordering Dr: Rhonda Sorenson DO PROCEDURE: CHEST [...] radiograph with left mid/lingular infiltrate. Reading Location: [id number] CC: Dr. Keron Maciel MD; Dr. Derick Sorenson DO ~ Fire Truck Driver: Signed [facility]07-05-2025 Discharge summary Author Derick Sorenson [facility] Note Date/Time December 21, 2024 8:32p m [facility] Medical Records Department [address], [place] [address] Emergency Department Summary 12/21/24 MR#: [id number] Acct: [id number] Name: OLMAN SYED Rep #:[id number] : [...] distance he is very short of breath. [facility] Medical History Pneumonia Parkinson's disease [...] flank pain Anemia Atherosclerotic heart disease of [place] coronary artery without angina pectoris 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 [...] PRN 02/19/20 Unknown Rx PRN Pain Score 1-3 Handi cap Placard #1 ea 10/14/20 Unknown Rx vitamins A,C,B-wtgm-wngzyq 2,148 1 tab PO BID 12/17/20 Unknown History mcg-113 mg-45 mg-17.4 mg tablet (PreserVision AREDS) pen needle, diabetic 32 gauge x #100 ea 12/25/20 Unkno wn Rx / Compression stockings (04-07) #2 ea 01/04/24 Unknown [...] % (Auto) 60.1 Lymph % (Auto) 24.4 [place] % (Auto) 10.8 H Eos % (Auto) [...] radiograph with left mid/lingular infiltrate. Reading Location: [facility] Chest CT 12/21/24 18:54 IMPRESSION: No acute abnormality Reading Location: [facility] Discharge Plan Triage Chief Complaint: Shortness of [...] not show any acute abnormalities. Print Language: Martiniquais Disposition Disposition: Home, Self Care What to do if you have Problems For any increased pain, shortness of breath, bleeding, nausea or vomiting, chestpain, or any unexpected problems, contact your Primary Care Provider. Call [facility] ([phone]) or report to the closest Emergency Room. Call 911 if necessary. 12/21/242031 <Electronically signed by Derick Sorenson DO> Cosigner Signature (if applicable): CC: Dr. Keron Maciel MD ~ Signed [facility] Work Phone: 1(858) 937-199906-27-2025 NoteHNO ID: [id number] Author: BARBIE NOVA, ? Service: ? Author [...] Objective: [facility] Vasc: DP and PT pulses are [...] Patient is to RTC in 3-4 months. [facility] History of Present illness Narrative* Barbie [...] sneakers Vasc: DP and PT pulses are faintly [...] Care Dinorah Dempsey LPN documented in this encounterWright[facility]06-27-2025 NoteHNO ID: [id number] Author: DINORAH DEMPSEY LPN Service: ? Author Type: LICENSED NURSE Type: Progress Notes Filed: 12/14/2024 09:07 Note Text: AMB ROOMING INTAKE FLOWSHEET DATA Patient presents with: Left Foot - Established Patient, Follow Up, Diabetic Foot Care Right Foot - Established Patient, Follow Up, Diabetic Foot Care Dinorah Dempsey [facility]06-24-2025 Radiology Diagnostic study note [facility] Imaging Services [address] [place] [address] Chest PA and Lateral MR#: [id number] Acct: [id number] Name: OLMAN SYED Rep #: [id number] : 1935 M 89 From: Juwan Suazo MD PCP: Dr. Keron Maciel MD Status: REG CLI Study:Chest PA and Lateral Date of Exam: 12/09/24 Exam# [id number] Ordering Dr: Keron Maciel MD PROCEDURE: CHEST [...] deformities of the right ribs. Reading Location: [place] CC: Dr. 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: Signed [facility]06-09-2025 Evaluation note* Diagnosis Onset Date Resolution Status Admit Date Atherosclerotic heart diseas e of [place] coronary artery without angina pectoris chronic November 25, 2024 1 1:01am CKD (chronic kidney disease) stage 3, GFR 30-59 ml/min chronic November 252024 11:01am Essential (primary) hypertension chr onic November 25, 2024 11:01am Diabetes mellitus type 2, insulin dependent inactive November 25, 2024 11:01am Generalized weakness inactive November 25, 2024 11:01am [facility] Work Phone: 1(532) 430-196506-09-2025 Evaluation note* Diagnosis Onset Date Resolution Status Admit Date Atherosclerotic heart diseas e of [place] coronary artery without angina pectoris chronic November [...] 09 1:52pm Atherosclerotic heart diseas e of [place] coronary artery without angina pectoris chronic December 09, 2024 1:52pm CKD (chronic kidney disease) stage 3, GFR 30-59 ml/min chronic November 182024 1:52pm Essential (primary) hypertension chr onic December 09, 2024 1:52pm HLD (hyperlipidemia) chronic December 09, 2024 1:52pm DANYELL (obstructive sleep apnea) chroni c December 09, 2024 1:52pm [facility] Work Phone: 1(975) 971-248106-09-2025 Evaluation note* Diagnosis Onset Date Resolution Status Admit Date Atherosclerotic heart disease of [place] coronary artery without angina pectoris chronic November [...] December 09 1:52pm Atherosclerotic heart disease of [place] coronary artery without angina pectoris chronic December [...] July 01, 2015 inactive December 23 1:32pm [facility] Work Phone: 1(753) 367-543106-09-2025 Evaluation note* Diagnosis Onset Date Resolution Status Admit Date Atherosclerotic heart disease of [place] coronary artery without angina pectoris chronic November [...] December 09 1:52pm Atherosclerotic heart disease of [place] coronary artery without angina pectoris chronic December [...] of breath inactive December 23, 2024 1:32pm [facility] Work Phone: [phone]) 500-452706-09-2025 Evaluation note* Diagnosis Onset Date Resolution Status Admit Date Atherosclerotic heart disease of [place] coronary artery without angina pectoris chronic November [...] December 09 1:52pm Atherosclerotic heart disease of [place] coronary artery without angina pectoris chronic December [...] 172024 11:10am Obesity chronic December 30 11:10am [facility] Work Phone: 1(974) 446-880506-09-2025 Evaluation note* Diagnosis Onset Date Resolution Status Admit Date Atherosclerotic heart disease of [place] coronary artery without angina pectoris chronic November [...] December 09 1:52pm Atherosclerotic heart disease of [place] coronary artery without angina pectoris chronic December [...] 06, 2025 1:55pm Atherosclerotic heart disease of [place] coronary artery without angina pectoris chronic January 06, 2025 1:55pm 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 disease chronic J diamond 21st, 2025 1:55pm Essential (primary) hypertension chronic January 06, [...] sleep apnea) chronic January 07, 2025 3:19am [facility] Work Phone: [phone]) 177-928206-09-2025 Evaluation note* Diagnosis Onset Date Resolution Status Admit Date Atherosclerotic heart disease of [place] coronary artery without angina pectoris chronic November [...] December 09 1:52pm Atherosclerotic heart disease of [place] coronary artery without angina pectoris chronic December [...] 172024 11:10am Obesity chronic December 30 11:10am Frequent falls acute January 06, 2025 1:55pm Parkinson's disease acute January 06, 2025 1:55pm Pneumonia acute January 06 1:55pm Polyneuropathy acute January 06, 2025 1:55pm Atherosclerotic heart disease of [place] coronary artery without angina pectoris chronic January 06, 2025 1:55pm 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 disease chronic 2024 1:55pm Essential (primary) hypertension chronic January 06, 2025 1:55pm Facial contusion inactive December 1:55pm Fall inactive January 06 1:55pm Diabetes mellitus type 2 in obese acute January 07, 2025 3:22am Generalized weakness acute January 07, 2025 3:22am Hypothyroidism acute January 07, 2025 3:22am Multiple falls acute January 07, 2025 3:22am Parkinson's disease acute January 07, 2025 3:22am Urinary tract infection acute J diamond2024 3:22am CKD (chronic kidney disease) stage 3, GFR 30-59 ml/min chronic December 182024 3:22am Essential (primary) hypertension chronic January 07, 2025 3:22am Mild cognitive impairment chronic January 07, 2025 3:22am DANYELL (obstructive sleep apnea) chronic January 07, 2025 3:22am Facial contusion inactive December 3:22am [facility] Work Phone: 1(675) 339-195106-09-2025 Evaluation note* Diagnosis Onset Date Resolution Status Admit Date Atherosclerotic heart disease of [place] coronary artery without angina pectoris chronic November [...] December 09 1:52pm Atherosclerotic heart disease of [place] coronary artery without angina pectoris chronic December [...] 172024 11:10am Obesity chronic December 30 11:10am Frequent falls acute January 06, 2025 1:55pm Parkinson's disease acute January 06, 2025 1:55pm Pneumonia acute January 06 1:55pm Polyneuropathy acute January 06, 2025 1:55pm Atherosclerotic heart disease of [place] coronary artery without angina pectoris chronic January 06, 2025 1:55pm 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 disease chronic J 2024 1:55pm Essential (primary) hypertension chronic January 06, 2025 1:55pm Facial contusion inactive December 1:55pm Fall inactive January 06 1:55pm Diabetes mellitus type 2 in obese acute January 07, 2025 3:22am Generalized weakness acute January 07, 2025 3:22am Hypothyroidism acute January 07, 2025 3:22am Multiple falls acute January 07, 2025 3:22am Parkinson's disease acute January 07, 2025 3:22am Urinary tract infection acute J diamond 2024 3:22am CKD (chronic kidney disease) stage 3, GFR 30-59 ml/min chronic December 182024 3:22am Essential (primary) hypertension chronic January 07, 2025 3:22am Mild cognitive impairment chronic January 07, 2025 3:22am DANYELL (obstructive sleep apnea) chronic January 07, 2025 3:22am Facial contusion inactive December 3:22am Essential (primary) hypertension chronic January 09, 2025 3:30pm HLD (hyperlipidemia) chronic January 09, 2025 3:30pm History of coronary artery stent placement July 01, 2015 inactive January 09 3:30pm Shortness of breath inactive January 09, 2025 3:30pm [facility] Work Phone: [phone]) 798-842406-09-2025 Evaluation note* Diagnosis Onset Date Resolution Status Admit Date Atherosclerotic heart disease of [place] coronary artery without angina pectoris chronic November 25, 2024 11:01am CKD (chronic kidney disease) stage 3, GFR 30-59 ml/min inactive November 252024 11:01am Diabetes mellitus type 2, insulin dependent inactive November 25, 2024 11:01am Essential (primary) hypertension inactive November 25, 2024 11:01am Generalized weakness inactive November 25, 2024 11:01am Pneumonia acute December 09 1:52pm Atherosclerotic heart disease of [place] coronary artery without angina pectoris chronic December 09, 2024 1:52pm HLD (hyperlipidemia) chronic December 09, 2024 1:52pm CKD (chronic kidney disease) stage 3, GFR 30-59 ml/min inactive November 182024 1:52pm Diabetes mellitus type 2 in obese inactive December 09, 2024 1:52pm Essential (primary) hypertension inactive December 09, 2024 1:52pm Hypothyroidism inactive December 09, 2024 1:52pm DANYELL (obstructive sleep apnea) inactive December 09, 2024 1:52pm Parkinson's disease inactive December 09, 2024 1:52pm HLD (hyperlipidemia) chronic December 23, 2024 1:32pm Shortness of breath chronic December 23, 2024 1:32pm Essential (primary) hypertension inactive December 23, 2024 1:32pm History of coronary artery stent placement July 01, 2015 inactive December 23 1:32pm Pneumonia acute December 30 11:10am Shortness of breath at rest acute December 30, 2024 11:10am Obesity chronic December 30 11:10am CKD (chronic kidney disease) stage 3, GFR 30-59 ml/min inactive December 172024 11:10am Diabetes mellitus type 2 in obese inactive December 30, 2024 11:10am Frequent falls acute January 06, 2025 1:55pm Pneumonia acute January 06 1:55pm Polyneuropathy acute January 06, 2025 1:55pm Atherosclerotic heart disease of [place] coronary artery without angina pectoris chronic January 06, 2025 1:55pm 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 disease chronic 2024 1:55pm Essential (primary) hypertension inactive January 06, 2025 1:55pm Facial contusion inactive December 1:55pm Fall inactive January 06 1:55pm Parkinson's disease inactive January 06, 2025 1:55pm CKD (chronic kidney disease) stage 3, GFR 30-59 ml/min inactive December 182024 3:22am Diabetes mellitus type 2 in obese inactive January 07, 2025 3:22am Essential (primary) hypertension inactive January 07, 2025 3:22am Facial contusion inactive December 3:22am Generalized weakness inactive January 07, 2025 3:22am Hypothyroidism inactive January 07, 2025 3:22am Mild cognitive impairment inactive January 07, 2025 3:22am Multiple falls inactive January 07, 2025 3:22am DANYELL (obstructive sleep apnea) inactive January 07, 2025 3:22am Parkinson's disease inactive January 07, 2025 3:22am Urinary tract infection inactive J [facility] 2024 3:22am HLD (hyperlipidemia) chronic January 09, 2025 3:30pm Shortness of breath chronic January 09, 2025 3:30pm Essential (primary) hypertension inactive January 09, 2025 3:30pm History of coronary artery stent placement July 01, 2015 inactive January 09 3:30pm [facility] Work Phone: 1(456) 561-711106-09-2025 Radiology Diagnostic study note [facility] Imaging Services [address] [place] [address] Chest PA and Lateral MR#: [id number] Acct: [id number] Name: OLMAN SYED Rep #: [id number] : 1935 M 89 From: Ana Maza MD PCP: Dr. Keron Maciel MD Status: REG CLI Study:Chest PA and Lateral Date of Exam: 11/25/24 Exam# [id number] Ordering Dr: Keron Maciel MD PROCEDURE: CHEST [...] ABI CC: Dr. 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 Medical Records Department [address] [place] [address] Emergency Department Summary 11/19/24 MR#: [id number] Acct: [id number] Name: OLMAN SYED Rep #:[id number] : [...] improvement of symptoms he presents for evaluation. [facility] Medical History Parkinson's disease Vasovagal [...] flank pain Anemia Atherosclerotic heart disease of [place] coronary artery without angina pectoris 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 [...] 02/19/20 Unknown Rx PRN Pain Score 1-3/10 Elizabeth Figueroa #1 ea 10/14/20 Unknown Rx vitamins A,C,Z-ewru-utobju 2,148 1 tab PO BID 12/17/20 Unknown [...] % (Auto) 65.1 Lymph % (Auto) 20.0 [place] % (Auto) 9.5 Eos % (Auto) 2.1 [...] Sl. Cloudy Urine pH 6.0 Ur Specific [place] 1.015 Urine Protein 30 H Urine Glucose [...] in the setting of cardiomegaly. Reading Location: [place] [address] Chest x-ray as interpreted by the emergency [...] the ER for repeat evaluation. Print Language: Martiniquais Disposition Disposition: Home, Self Care What to do if you have Problems For any increased pain, shortness of breath, bleeding, nausea or vomiting, chestpain, or any unexpected problems, contact your Primary Care Provider. Call [facility] ([phone]) or report tothe closest Emergency Room. Call 911 if necessary. 11/20/24 0030 Cosigner Signature (if applicable): CC: Dr. Keron Maciel MD ~ Signed [facility]06-03-2025 Radiology Diagnostic study note [facility] Imaging Services [address] [place] [address] Chest PA and Lateral MR#: [id number] Acct: [id number] Name: OLMAN SYED Rep #: [id number] : 1935 M 89 From: Johan Higgins MD PCP: Dr. Keron Maciel MD Status: REG ER Study:Chest PA and Lateral Date of Exam: 11/19/24 Exam# [id number] Ordering Dr: Sharon Corrales DO PROCEDURE: CHEST PA AND LATERAL 11/19/2024 REASON FOR EXAM: DYSPNEA TECHNIQUE: Frontal and lateral views of the chest. COMPARISON: 07/16/2023. FINDINGS: Prior sternotomy. The heart is enlarged. Pulmonary vascular congestion. No pleural effusion or pneumothorax. Partially visualized lumbar fixation. RAD/Chest PA and Lateral IMPRESSION: Pulmonary vascular congestion in the setting of cardiomegaly. Reading Location: [place] [address] CC: Dr. Keron Maciel MD; Helio Corrales DO ~ Fire Truck Driver: Signed [facility]06-03-2025 Discharge summary Author Helio Corrales [facility] Note Date/Time November 20, 2024 12:[address] [facility] Medical Records Department [address] [place] [address] Emergency Department Summary 11/19/24 MR#: [id number] Acct: [id number] Name: OLMAN SYED Rep #:[id number] : [...] improvement of symptoms he presents for evaluation. [facility] Medical History Parkinson's disease Vasovagal [...] flank pain Anemia Atherosclerotic heart disease of [place] coronary artery without angina pectoris 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 [...] Placard #1 ea 10/14/20 Unknown Rx vitamins A,C,Y-sxmr-rrumex 2,148 1 tab PO BID 12/17/20 Unknown History mcg-113 mg-45 mg-17.4 mg tablet (PreserVision AREDS) pen needle, diabetic 32 gauge x #100 ea 12/25/20 Unkno wn Rx / Compression stockings (04-07) #2 ea 01/04/24 Unknown [...] % (Auto) 65.1 Lymph % (Auto) 20.0 [place] % (Auto) 9.5 Eos % (Auto) 2.1 [...] Sl. Cloudy Urine pH 6.0 Ur Specific [place] 1.015 Urine Protein 30 H Urine Glucose [...] in the setting of cardiomegaly. Reading Location: [place] [address] Chest x-ray as interpreted by the emergency [...] TID PRN PRN (Reason: pain) (DME) Elizabeth Stevensonsigrid See Rx Instructions .Route .MEDSUPPLY Qty: 1 [...] the ER for repeat evaluation. Print Language: Martiniquais Disposition Disposition: Home, Self Care What to do if you have Problems For any increased pain, shortness of breath, bleeding, nausea or vomiting, chestpain, or any unexpected problems, contact your Primary Care Provider. Call [facility] ([phone]) or report to the closest Emergency Room. Call 911 if necessary. 11/20/24 0030 <Electronically signed by Helio Corrales DO> Cosigner Signature (if applicable): CC: Dr. Keron Maciel MD ~ Signed [facility] Work Phone: 1(833) 431-294503-21-2025 Instructions* Patient Instructions* Barbie Nova - 09/06/2024 [...] (or decreased sensation in your feet) a printing specialist should always cut your toenails. Be Careful [...] Go to your health care provider or printing specialist to treat these conditions. Can use tubigrip for lower extremity swelling. Apply during the day and can remove at night documented in this encounterWright-Patterson Medical Center03-21-2025 NoteHNO ID: [id number] Author: BARBIE NOVA, ? Service: ? Author [...] is to RTC in 3-4 months. Barbie Nova, [facility]03-21-2025 History of Present illness Narrative* Barbie [...] Cintia Izquierdo MA Student documented in this encounterWright-Patterson Medical Center03-21-2025 NoteHNO ID: [id number] Author: CINTIA IZQUIERDO MA Student Service: ? Author Type: Student Type: Progress Notes Filed: 09/06/2024 14:17 Note Text: AMB ROOMING INTAKE FLOWSHEET DATA Patient presents with: Left Foot - Established Patient, Follow Up, Diabetic Foot Care Right Foot - Established Patient, Follow Up, Diabetic Foot Care Cintia Izquierdo MA [facility]02-13-2025 Evaluation note* Diagnosis Onset Date Resolution Status Admit Date Left foot drop acute July 202024 1:54pm Parkinson's disease acute Febru 2024 1:54pm Mild cognitive impairment chronic August 01, 2024 1:54pm Orthostatic hypotension resolved [facility] 2024 1:54pm [facility] Work Phone: 1(492) 139-260702-13-2025 Evaluation note* Diagnosis Onset Date Resolution Status Admit Date Left foot drop acute July 202024 1:54pm Parkinson's disease acute u 2024 1:54pm Mild cognitive impairment chronic August 01, 2024 1:54pm Orthostatic hypotension resolved [facility] 2024 1:54pm Diabetes mellitus type 2, insulin dependent acute November 25, 2024 11:01am Generalized weakness acute November 25, 2024 11:01am Atherosclerotic heart diseas e of [place] coronary artery without angina pectoris chronic November 11:01am CKD (chronic kidney disease) stage 3, GFR 30-59 ml/min chronic November 252024 11:01am Essential (primary) hypertension chronic November 25, 2024 1 1:01am [facility] Work Phone: [phone]) 239-846902-06-2025 Evaluation note* Diagnosis Onset Date Resolution Status Admit Date Diabetes mellitus type 2 in obese acute July 25 2:30pm Parkinson's disease acute Febru marli2024 2:30pm Polyneuropathy acute July 252024 2:30pm Vasovagal episode acute Februar y 2024 2:30pm Gzozc-ys-mhjrnfi kidney injury chron ic July 25, 2024 2:30pm Atherosclerotic heart diseas e of [place] coronary artery without angina pectoris chronic July 25, 2024 2:30pm CKD (chronic kidney disease) stage 3, GFR 30-59 ml/min chronic ua 2024 2:30pm Essential (primary) hypertension chronic July 25 2:30pm Obesity chronic July 25, 2024 2:30pm DANYELL (obstructive sleep apnea) chroni c July 25, 2024 2:30pm Left foot drop acute July 202024 1:54pm Parkinson's disease acute Febru marli2024 1:54pm Mild cognitive impairment chronic August 01, 2024 1:54pm Orthostatic hypotension resolved F ebruary 2024 1:54pm [facility] Work Phone: 1(646) 409-612512-29-2024 [facility]12-19-2024 NoteHNO ID: [id number] Author: BARBIE NOVA, ? Service: ? Author [...] to RTC in 3-4 months. Barbie Nova [facility]12-19-2024 History of Present illness Narrative* Barbie [...] foot/nail care. [facility] 02/29/24 documented in this encounterWright-Patterson Medical Center12-19-2024 Instructions* Patient Instructions* Barbie Nova [...] (or decreased sensation in your feet) a printing specialist should always cut your toenails. Be Careful [...] Go to your health care provider or printing specialist to treat these conditions. documented in this encounterWright-Patterson Medical Center12-19-2024 NoteHNO ID: [id number] Author: ROSITA GARNER RN Service: ? Author Type: Registered Nurse Type: Progress Notes Filed: 06/06/2024 10:22 Note Text: Patient presents with: Left Foot - Established Patient, Follow Up, Diabetic Foot Care Right Foot - Established Patient, Follow Up, Diabetic Foot Care Patient presents for follow up diabetic foot/nail care. [facility] 02/29/24[facility]09[facility] NoteHNO ID: [id number] Author: BARBIE NOVA, ? Service: ? Author [...] Objective: [facility] Vasc: DP and PT pulses are [...] to RTC in 3-4 months. Barbie Nova [facility]09-12-2024 History of Present illness Narrative* Barbie [...] Objective: Patient presents to [facility] Vasc: DP and PT pulses are [...] foot/nail care. Due for diabetic foot exam. [facility] 11/16/23 documented in this encounterWright-Patterson Medical Center09-12-2024 NoteHNO ID: [id number] Author: ROSITA GARNER RN Service: ? Author Type: Registered Nurse Type: Progress Notes Filed: 02/29/2024 14:01 Note Text: Patient presents with: Left Foot - Established Patient, Follow Up, Diabetic Foot Check Right Foot - Established Patient, Follow Up, Diabetic Foot Check Patient presents for follow up diabetic foot/nail care. Due for diabetic foot exam. [facility] 11/16/23[facility]05-30-[facility] Instructions* Patient Instructions* Barbie Nova - [...] (or decreased sensation in your feet) a printing specialist should always cut your toenails. Be Careful [...] Go to your health care provider or printing specialist to treat these conditions. documented in this encounterWright-Patterson Medical Center05-30-2024 History of Present illness Narrative* [...] Care Dinorah Dempsey LPN documented in this encounterWright-Patterson Medical Center02-12-2024 Miscellaneous Notes* Addendum Note - Barbie Nova - 07/31/2023 1:32 PM ESTAddended by: BARBIE NOVA DPM on: 07/31/2023 01:32 PM Modules accepted: Orders documented in this encounterWright-Patterson Medical Center02-12-2024 Instructions* Patient Instructions* Barbie Nova [...] (or decreased sensation in your feet) a printing specialist should always cut your toenails. Be Careful [...] Go to your health care provider or printing specialist to treat these conditions. 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 07/07/2014 Calculus of kidney Class 3 severe obesity due to excess calories with body mass index (BMI) of 40.0 to 44.9 in adult ([facility] Controlled type 2 diabetes mellitus with stage 3 chronic kidney disease, without long-term current use of insulin ([facility]) 03/26/2018 Diaphragmatic hernia without mention of obstruction or gangrene Diverticulitis of colon (without mention of hemorrhage)(562.11) Elevated liver function tests 03/26/2018 Esophageal reflux Essential hypertension, benign 01/28/2014 Family history of colon cancer in mother 12/22/2014 GERD (gastroesophageal reflux disease) 04/19/2010 Hyperlipidemia LDL goal < 100 04/26/2011 Hypothyroidism 08/21/2010 Lumbar disc disease with radiculopathy 10/09/2013 Morbid obesity (HCC) 04/23/2012 DNAYELL (obstructive sleep apnea) Osteoarthritis of hip 02/16/2010 [...] SPEC WHEN PFRMD 01/29/15 Colonoscopy ECHO 06/24/2015 [facility] - see scanned documents ESOPHAGOGASTRODUODENOSCOPY TRANSORAL [...] Care Dinorah Dempsey LPN [facility] Discharge summary Author Mark Aggarwal [facility] December 09, 2022 2:12pm Note Date/Time December 09, 2022 2:12 pm [facility] Physical Therapy [facility] [address] [place] [address] / REHABILITATION SERVICES DISCHARGE SUMMARY MR#: [id number] Acct: [id number] Name: OLMAN SYED Rep #: [id number] [...] please feel free to call me at [phone]. Thank you for the referral of thispatient. Sincerely, Mark Aggarwal, PT, ATC <Electronically signed by Mark Aggarwal PT, ATC> 12/09/22 1412 CC: Dr. Keron Maciel MD; Dr. Rich Padgett MD ~ [facility] Signed [facility] Work Phone: 1(865) 583-318406-23-2023 Discharge summary Author Kalia Hendrickson [facility] December 09, 2022 1:32pm Note Date/Time December 09, 2022 1:32 pm [facility] Physical Therapy [facility] [place] [address] / REHABILITATION SERVICES DISCHARGE SUMMARY MR#: [id number] Acct: [id number] Name: OLMAN SYED Rep #: [id number] [...] please feel free to call me at [phone]. Thank you for the referral of thispatient. [...] Dr. Rich Padgett MD ~ CLS Signed [facility] Work Phone: [phone]) 928-930410-08-2018 History of Past illness Narrative* Problem Noted [...] of this encounter (statuses as of 07/31/2023) [facility] History of Past illness Narrative* [...] of this encounter (statuses as of 08/01/2023) [facility] Evaluation note* Diagnosis Onset Date Resolution Status Atherosclerotic heart diseas e of [place] coronary artery without angina pectoris chronic Essential (primary) hypertension chronic History of coronary artery stent placement June, 2015 chronic Shortness of breath acute Body mass index (BMI) 40.0-44.9, adult chronic CKD (chronic kidney disease) stage 3, GFR 30-59 ml/min chronic Diabetes mellitus chronic Essential (primary) hypertension chronic HLD (hyperlipidemia) chronic Iron deficiency anemia chron ic DANYELL (obstructive sleep apnea) chronic 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 [facility] Work Phone: [phone]) 748-218901-13-2016 Evaluation note* Diagnosis Onset Date Resolution Status Atherosclerotic heart diseas e of [place] coronary artery without angina pectoris chronic Essential (primary) hypertension chronic History of coronary artery stent placement June chronic HLD (hyperlipidemia) chronic Cardiomyopathy acute Leg swelling acute Obesity acute Polyneuropathy acute 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 CKD (chronic kidney disease) stage 3, GFR 30-59 ml/min chronic Diabetes mellitus chronic Essential (primary) hypertension chronic History of coronary artery stent placement June chronic HLD (hyperlipidemia) chronic DANYELL (obstructive sleep apnea) chronic Parkinson's disease chronic Cardiac arrhythmia acute Abnormality of gait and mobility chronic 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 Keron Maciel MD Status:ADM IN [place] [id number] Pharm[facility] Counseling Pharmacy Service has performed discharge medication reconciliation and counseling for this patient. 1. NITROFURANTOIN 100MG PO BID X 5 DAYS The patient's discharge medication list was reviewed for discrepancies and discrepancies were resolved. The patient was counseled on the following discharge medications and changes in medications for homegoing were reviewed. The Reason for Use, instructions for use, and potential side effects were reviewed for all new medications. The patient's questions regarding all of their medications were answered. The patient was able to verbally demonstrate an understanding of their dischargemedications. Medications at Discharge Home Medications cholecalciferol (vitamin D3) 125 mcg (5,000 unit) capsule 5,000 unit PO DAILY vitamin 06/29/15 finasteride 5 mg tablet 5 mg PO DAILY prostate 06/29/15 aspirin 81 mg tablet,delayed release 81 mg PO DAILY heart health 07/24/15 acetaminophen 500 mg tablet 1,000 mg (2 x 500 mg) PO Q6H PRN PRN Pain Score 1- 3/02/19/20 Handi cap Placard #1 ea 10/14/20 vitamins A,C,O-avte-shmzro 2,148 mcg-113 mg-45 mg-17.4 mg tablet (PreserVision AREDS) 1 tab PO BID supplement 12/17/20 pen needle, diabetic 32 gauge x 06/22 #100 ea 12/25/20 Compression stockings (10-) #2 ea 01/04/24 Left AFO #1 ea 01/04/24 levothyroxine 50 mcg tablet 50 mcg PO DAILY thyroid #90 tabs 02/01/24 escitalopram oxalate 10 mg tablet 10 mg PO DAILY #90 tabs 03/05/24 pantoprazole 40 mg tablet,delayed release See Rx Instructions .Route .COMPLEX #90 tabs 03/05/24 metformin 500 mg tablet 500 mg PO BIDCM diabetes #180 tabs 03/19/24 isosorbide mononitrate 30 mg tablet,extended release 24 hr 30 mg PO DAILY #90 TABLETS 04/01/24 ascorbic acid (vitamin C) 1,000 mg tablet (C-1000) 1 g PO DAILY supplement 06/15/24 cyanocobalamin (vitamin B-12) 1,000 mcg tablet (Vitamin B-12) 1,000 mcg PO DAILYsupplement 06/15/24 ferrous sulfate 325 mg (65 mg iron) tablet (Feosol) 65 mg PO DAILY iron 06/15/24 folic acid 1 mg tablet 1 mg PO DAILY #30 tabs 06/15/24 zinc acetate 50 mg (zinc) capsule 50 mg PO DAILY supplement 06/15/24 insulin human U-100 NPH-regulr 70-30 mix 100 unit/mL subcutaneous susp (Humulin 70/30 U-100 Insulin) 28 unit subcut BID dm 06/24/24 pravastatin 20 mg tablet 20 mg PO DAILY cholesterol #90 tabs 07/23/24 carbidopa 25 mg-levodopa 100 mg tablet (Sinemet) 2 tab PO TID #180 tabs 08/01/24 amlodipine 5 mg tablet 5 mg PO DAILY BP #90 tabs 09/27/24 trazodone 50 mg tablet 50 mg PO QHS PRN PRN insomnia #60 tabs 10/03/24 fludrocortisone 0.1 mg tablet See Rx Instructions PO .COMPLEX #28 tabs 10/23/24 clopidogrel 75 mg tablet 75 mg PO DAILY for cholesterol #90 TABLETS 11/08/24 hydrocodone 7.5 mg-acetaminophen 325 mg tablet 1 tab PO TID PRN PRN pain 11/19/24 furosemide 40 mg tablet 40 mg PO DAILY #90 TABLETS 12/23/24 ranolazine 500 mg tablet,extended release,12 hr 500 mg PO BID #180 tabs 01/06/25 nitrofurantoin monohydrate/macrocrystals 100 mg capsule (Macrobid) 100 mg PO BID#10 caps 01/08/25 01/08/25 1210 <Electronically signed by Sheryl Morataya> Date _ Sheryl Hamigner Signature (if applicable): Date CC: ~ Signed [facility] Work Phone: Discharge summary Author Derick Sorenson [facility] Note Date/Time January 07, 2025 3:15 am [facility] Medical Records Department [address] [place] [address] Emergency Department Summary 01/07/25 MR#: [id number] Acct: [id number] Name: OLMAN SYED Rep #:[id number] : 1935 89 From: Derick Sorenson DO PCP: Dr. Keron Maciel MD Status:REG ER Location: ED ADDENDUM by Dr. Derick Sorenson DO on 01/07/25 at 0315 Patient is EKG reviewed showed sinus rhythm at a rate of 73 bpm with evidence ofright bundle branch block. FL interval 190 01/07/25 0315<Electronically signed by Derick [...] twice at night within a few hours. [facility] Medical History Frequent falls Shortness of breath [...] flank pain Anemia Atherosclerotic heart disease of [place] coronary artery without angina pectoris 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 [...] Placard #1 ea 10/14/20 Unknown Rx vitamins A,C,Y-pjje-tqsjhc 2,148 1 tab PO BID 12/17/20 Unknown [...] 79.1 H Lymph % (Auto) 10.0 L [place] % (Auto) 8.0 Eos % (Auto) 1.4 [...] Clarity Clear Urine pH 6.0 Ur Specific [place] 1.015 Urine Protein 30 H Urine Glucose [...] IMPRESSION: No acute intracranial findings Reading Location: [facility] 01/07/25 01:10 IMPRESSION: No acute cervical spine injury. Reading Location: [facility] Chest X-Ray 01/07/25 01:49 IMPRESSION: No acute chest findings. Reading Location: [facility] Discharge Plan Triage Chief Complaint: Weakness Other [...] TID PRN PRN (Reason: pain) (DME) Elizabeth Stevensonard See Rx Instructions .Route .MEDSUPPLY Qty: [...] MD [Primary Care Provider] - Print Language: Martiniquais Disposition Disposition: Acute Care Hospital [facility] What to do if you have Problems For any increased pain, shortness of breath, bleeding, nausea or vomiting, chestpain, or any unexpected problems, contact your Primary Care Provider. Call [facility] ([phone]) or report to the closest Emergency Room. Call 911 if necessary. 01/07/25312 <Electronically signed by Derick Sorenson DO> Cosigner Signature (if applicable): CC: Dr. Keron Maciel MD ~ Signed [facility] Work Phone: Evaluation note* Diagnosis Onset Date Resolution Status B12 nutritional deficiency a cute 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 disease acut e Mild cognitive impairment ac galena Parkinson's disease acute Polyneuropathy acute DANYELL (obstructive sleep apnea) chronic Obesity acute Polyneuropathy acute Diabetes mellitus chronic Essential (primary) hypertension chronic HLD (hyperlipidemia) chronic 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 disease acut e Mild cognitive impairment ac galena Parkinson's disease acute Polyneuropathy acute B12 nutritional deficiency a cute 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 disease acut e Fungal skin infection acute Obesity acute Atherosclerotic heart diseas e of [place] coronary artery without angina pectoris chronic Body mass index (BMI) 40.0-44.9, adult chronic CKD (chronic kidney disease) stage 3, GFR 30-59 ml/min chronic Diabetes mellitus chronic Essential (primary) hypertension chronic HLD (hyperlipidemia) [facility] Work Phone: Evaluation note* Diagnosis Onset Date Resolution Status B12 nutritional deficiency a cute 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 disease acut e Mild cognitive impairment ac galena Parkinson's disease acute Polyneuropathy acute DANYELL (obstructive sleep apnea) chronic Obesity acute Polyneuropathy acute Diabetes mellitus chronic Essential (primary) hypertension chronic HLD (hyperlipidemia) chronic 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 disease acut e Mild cognitive impairment ac galena Parkinson's disease acute Polyneuropathy acute B12 nutritional deficiency a cute 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 disease acut e Fungal skin infection acute Obesity acute Atherosclerotic heart diseas e of [place] coronary artery without angina pectoris chronic Body mass index (BMI) 40.0-44.9, adult chronic CKD (chronic kidney disease) stage 3, GFR 30-59 ml/min chronic Diabetes mellitus chronic Essential (primary) hypertension chronic HLD (hyperlipidemia) chronic Atherosclerotic heart diseas e of [place] coronary artery without angina pectoris chronic Essential (primary) hypertension chronic History of coronary artery stent placement June [facility] Work Phone: Evaluation note* Diagnosis Onset Date Resolution Status 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 disease acut e Mild cognitive impairment ac galena Parkinson's disease acute Polyneuropathy acute B12 nutritional deficiency a cute 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 disease acut e Fungal skin infection acute Obesity acute Atherosclerotic heart diseas e of [place] coronary artery without angina pectoris chronic Body mass index (BMI) 40.0-44.9, adult chronic CKD (chronic kidney disease) stage 3, GFR 30-59 ml/min chronic Diabetes mellitus chronic Essential (primary) hypertension chronic HLD (hyperlipidemia) chronic Atherosclerotic heart diseas e of [place] coronary artery without angina pectoris chronic Essential (primary) hypertension chronic History of coronary artery stent placement June [facility] Work Phone: Evaluation note* Diagnosis Onset Date [...] block chronic Atherosclerotic heart diseas e of [place] coronary artery without angina pectoris chronic Essential (primary) hypertension chronic History of coronary artery stent placement June chronic HLD (hyperlipidemia) [facility] Work Phone: Evaluation note* Diagnosis Onset Date Resolution Status Obesity acute DANYELL (obstructive sleep apnea) chronic Atherosclerotic heart diseas e of [place] coronary artery without angina pectoris chronic Essential (primary) hypertension chronic History of coronary artery stent placement June chronic HLD (hyperlipidemia) [facility] Work Phone: Evaluation note* Diagnosis Onset Date Resolution Status Obesity acute DANYELL (obstructive sleep apnea) chronic Atherosclerotic heart diseas e of [place] coronary artery without angina pectoris chronic Essential (primary) hypertension chronic History of coronary artery stent placement June chronic HLD (hyperlipidemia) chronic Cardiomyopathy acute Leg swelling acute Obesity acute Polyneuropathy acute 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 CKD (chronic kidney disease) stage 3, GFR 30-59 ml/min chronic Diabetes mellitus chronic Essential (primary) hypertension chronic History of coronary artery stent placement June chronic HLD (hyperlipidemia) chronic DANYELL (obstructive sleep apnea) chronic Parkinson's disease [facility] Work Phone: Evaluation note* Diagnosis Onychomycosis- Primary Dermatophytosis of nail Pain in toe of left foot Pain in limb Pain in toe of right foot Pain in limb Xerosis cutis Other specified disease of sebaceous glands Diabetic polyneuropathy associated with diabetes mellitus due to underlying condition ([facility]) Callus of heel Corns and callosities [facility] this encounter [facility] Pain Generalized pain documented [facility] this [facility] Diagnosis Onset Date Resolution Status Diabetes mellitus type 2 in obese acute Atherosclerotic heart diseas e of [place] coronary artery without angina pectoris chronic Body mass index (BMI) 40.0-44.9, adult chronic CKD (chronic kidney disease) stage 3, GFR 30-59 ml/min chronic Essential (primary) hypertension chronic HLD (hyperlipidemia) chronic DANYELL (obstructive sleep apnea) chronic 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 Mild cognitive impairment ch ronic Parkinson's disease chronic Acute bronchitis acute B12 nutritional deficiency a cute Diabetes mellitus type 2 in obese acute Obesity acute Atherosclerotic heart diseas e of [place] coronary artery without angina pectoris chronic CKD (chronic kidney disease) stage 3, GFR 30-59 ml/min chronic Essential (primary) hypertension chronic HLD (hyperlipidemia) chronic [facility] Work Phone: Evaluation note* Diagnosis Onychomycosis- Primary Dermatophytosis of nail Pain in toe of left foot Pain in limb Pain in toe of right foot Pain in limb Diabetic polyneuropathy associated with type 2 diabetes mellitus (HCC) [facility] Onychomycosis- Primary Dermatophytosis of nail Pain in toe of left foot Pain in limb Pain in toe of right foot Pain in limb Diabetic polyneuropathy associated with type 2 diabetes mellitus (HCC) [facility] Diagnosis Onychomycosis- Primary Dermatophytosis of nail Pain in toe of left foot Pain in limb Pain in toe of right foot Pain in limb Diabetic polyneuropathy associated with type 2 diabetes mellitus (HCC) [facility] Diagnosis Onychomycosis- Primary Dermatophytosis of nail Pain in toe of left foot Pain in limb Pain in toe of right foot Pain in limb Diabetic polyneuropathy associated with type 2 diabetes mellitus (HCC) Venous insufficiency Unspecified venous (peripheral) insufficiency [facility] Diagnosis Onychomycosis- Primary Dermatophytosis of nail Pain in toe of left foot Pain in limb Diabetic polyneuropathy associated with type 2 diabetes mellitus (HCC) Pain in toe of right foot Pain in limb [facility] Author Junior Valverde [facility] Note Date/Time January 07, 2025 3:[address] [facility] Medical Records Department [address] [place] [address] History & Physical Exam 01/07/25 0316 MR#: [id number] Acct: [id number] Name: OLMAN SYED Rep #:[id number] : 1935 89 From: Junior Valverde MD PCP: Dr. Keron Maciel MD Status:ADM BRITTANY Location: WI3 [id number] HPI - General General Date of Admission: [...] help with placement and risk of fall [facility] Medical History Frequent falls Shortness of breath [...] flank pain Anemia Atherosclerotic heart disease of [place] coronary artery without angina pectoris 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 [...] Placard #1 ea 10/14/20 Unknown Rx vitamins A,C,L-vfro-aciubd 2,148 1 tab PO BID 12/17/20 Unknown [...] Clarity Clear, Urine pH 6.0, Ur Specific [place] 1.015, Urine Protein 30 H, Urine Glucose [...] (Auto) 79.1 H, Lymph % (Auto) 10.0L, [place] % (Auto) 8.0, Eos % (Auto) 1.4, [...] IMPRESSION: No acute intracranial findings Reading Location: [facility] 01/07/25 01:10 IMPRESSION: No acute cervical spine injury. Reading Location: [facility] Chest X-Ray 01/07/25 01:49 IMPRESSION: No acute chest findings. Reading Location: [facility] Assessment & Plan Assessment/Plan (1) Urinary tract [...] DVT prophylaxis?SCDs Charges/Coding Visit Charges Inpatient E&M: 37725 Init Hosp L2 01/07/25 0322 <Electronically signed by Junior Valverde MD> Cosigner Signature (if applicable): CC: Dr. Keron Maciel MD; Dr. Junior Valverde MD~ Signed [facility] Work Phone: Hospital Discharge instructions Additional Instructions [...] please return to the ER for repeat evaluation.[facility] Work Phone: Hospital Discharge instructionsAdditional Instructions Stop taking the antibiotic azithromycin that you are currently on and take the doxycycline that was sent to your pharmacy as prescribed. Return with worsening symptoms or other concerns. Your CT of your chest did not show any focal consolidations. Your blood work did not show any acute abnormalities.[facility] Work Phone: Hospital Discharge instructionsAdditional Instructions Use ice to the bridge of your nose. This will help with swelling. This will also help with any bleeding from the nose.[facility] Work Phone: Reason for referral (narrative)No reason for referral information [facility]Mar[facility] Work Phone: Reevto for visit Narrative* Diagnostic Procedure Only (Routine) - Authorized Specialty Diagnoses / Procedures Referred By Mo mills Referred To Contact XR IMAGING Diagnoses Pain Procedures XR FOOT GENERAL 3V AP/LAT/OBL BILATERAL RADEX FOOT COMPLETE MINIMUM 3 VIEWS [address] [place] [address] [place] [address] Referral ID Status Reason Start Date Expiration Date Visits Requested Visits Authorized [id number] Authorized Auto-Generat ed Referral 07/12/2023 08/10/2024 1 1 [facility] Chief Complaint and Reason for [...] skin infection Obesity Atherosclerotic heart disease of [place] coronary artery without angina pectoris Body mass [...] skin infection Obesity Atherosclerotic heart disease of [place] coronary artery without angina pectoris Body mass index (BMI) 40.0-44.9, adult CKD (chronic kidney disease) stage 3, GFR 30-59 ml/min Diabetes mellitus Essential (primary) hypertension HLD (hyperlipidemia) Atherosclerotic heart disease of [place] coronary artery without angina pectoris Essential (primary) [...] skin infection Obesity Atherosclerotic heart disease of [place] coronary artery without angina pectoris Body mass index (BMI) 40.0-44.9, adult CKD (chronic kidney disease) stage 3, GFR 30-59 ml/min Diabetes mellitus Essential (primary) hypertension HLD (hyperlipidemia) Atherosclerotic heart disease of [place] coronary artery without angina pectoris Essential (primary) hypertension History of coronary artery stent placement Chief Complaint 3 M FU 6 M FU 9 M FU SOB ASHD HTN FALL WITH HEAD INJURY Reason for Visit 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 dise ase Mild cognitive impairment Parkinson's disease Polyneuropathy B12 nutritional deficiency 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 disease Fungal skin infection Obesity Atherosclerotic heart disease of [place] coronary artery without angina pectoris Body mass index (BMI) 40.0-44.9, adult CKD (chronic kidney disease) stage 3, GFR 30-59 ml/min Diabetes mellitus Essential (primary) hypertension HLD (hyperlipidemia) Atherosclerotic heart disease of [place] coronary artery without angina pectoris Essential (primary) hypertension History of coronary artery stent placement Chief Complaint 9 M FU SOB ASHD HTN FALL WITH HEAD INJURY STITCHES OUT 3 M FU E-ORDER Amb Documentation Reason for Visit Atherosclerotic hear t disease of [place] coronary artery without angina pectoris Essential (primary) [...] anterior fascicular block Atherosclerotic heart disease of [place] coronary artery without angina pectoris Essential (primary) hypertension History of coronary artery stent placement HLD (hyperlipidemia) Chief Complaint 1 Y FU 6 M FU Reason for Visit Obesity DANYELL (obstructive sleep apnea) Atherosclerotic heart disease of [place] coronary artery without angina pectoris Essential (primary) hypertension History of coronary artery stent placement HLD (hyperlipidemia) Chief Complaint 1 Y FU 6 M FU 8 M FU E-ORDER Reason for Visit Obesity DANYELL (obstructive sleep apnea) Atherosclerotic heart disease of [place] coronary artery without angina pectoris Essential (primary) [...] for Visit Atherosclerotic hear t disease of [place] coronary artery without angina pectoris Essential (primary) [...] 2 in obese Atherosclerotic heart disease of [place] coronary artery without angina pectoris Body mass index (BMI) 40.0-44.9, adult CKD (chronic kidney disease) stage 3, GFR 30-59 ml/min Essential (primary) hypertension HLD (hyperlipidemia) DANYELL (obstructive sleep apnea) 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 disease Mild cognitive impairment Parkinson's disease Acute bronchitis B12 nutritional deficiency Diabetes mellitus type 2 in obese Obesity Atherosclerotic heart disease of [place] coronary artery without angina pectoris CKD (chronic kidney disease) stage 3, GFR 30-59 ml/min Essential (primary) hypertension HLD (hyperlipidemia) Chief Complaint Admit Date 4 M FU August 01, 2024 1:54pm sob November 19, 2024 10:47 pm [facility] ER FU November 25, 2024 11:01 [...] 11:0 1am Atherosclerotic heart diseas e of [place] coronary artery without angina pectoris November 25, [...] Vasovagal episode July 25, 2024 2 :30pm Yctme-ph-rgwqupz kidney injury July 25, 2024 2:30pm Atherosclerotic heart diseas e of [place] coronary artery without angina pectoris July 25, [...] 01, 2024 1:54pm Orthostatic hypotension August 01 1:54pm Chief Complaint Admit Date sob November 19, 2024 10:47 pm [facility] ER FU November 25, 2024 11:01 am dyspnea on exertion November 25, 2024 12:34 pm 2 WK FU December 09, 2024 1:52 pm Reason for Visit Admit Date Atherosclerotic heart diseas e of [place] coronary artery without angina pectoris November 25, 2024 11:01am CKD (chronic kidney disease) stage 3, GF R 30-59 ml/min November 25, 2024 11:01am Essential (primary) hypertension November 11:01am Diabetes mellitus type 2, insulin depend ent November 25, 2024 11:01am Generalized weakness November 25, 2024 11:0 1am Chief Complaint Admit Date sob November 19, 2024 10:47 pm [facility] FU November 25, 2024 11:01 am dyspnea on exertion November 25, 2024 12:34 pm 2 WK FU December 09, 2024 1:52 pm EORDER December 09, 2024 3:24 pm Reason for Visit Admit Date Atherosclerotic heart diseas e of [place] coronary artery without angina pectoris November 25, [...] 1:52 pm Atherosclerotic heart diseas e of [place] coronary artery without angina pectoris December 09, 2024 1:52pm CKD (chronic kidney disease) stage 3, GF R 30-59 ml/min December 09, 2024 1:52pm Essential (primary) hypertension December 092024 1:52pm HLD (hyperlipidemia) December 09, 2024 1:5 2pm DANYELL (obstructive sleep apnea) December 09, 2024 1:52pm Chief Complaint Admit Date sob November 19, 2024 10:47 pm [facility] ER FU November 25, 2024 11:01 am dyspnea on exertion November 25, 2024 12:34 pm 2 WK FU December 09, 2024 1:52 pm EORDER December 09, 2024 3:24 pm sob December 21, 2024 3:35p m Chief Complaint Admit Date sob November 19, 2024 10:47 pm [facility] ER FU November 25, 2024 11:01 am dyspnea on exertion November 25, 2024 12:34 pm 2 WK FU December 09, 2024 1:52 pm EORDER December 09, 2024 3:24 pm sob December 21, 2024 3:35p m Increased Dyspnea like before stent. L .L. December 23, 2024 1:32pm Reason for Visit Admit Date Atherosclerotic heart diseas e of [place] coronary artery without angina pectoris November 25, [...] 1:52 pm Atherosclerotic heart diseas e of [place] coronary artery without angina pectoris December 09, [...] Date sob November 19, 2024 10:47 pm [facility] ER FU November 25, 2024 11:01 am dyspnea on exertion November 25, 2024 12:34 pm 2 WK FU December 09, 2024 1:52 pm EORDER December 09, 2024 3:24 pm sob December 21, 2024 3:35p m Increased Dyspnea like before stent. L .L. December 23, 2024 1:32pm [facility] ER FU December 30, 2024 11:1 0am Reason for Visit Admit Date Atherosclerotic heart diseas e of [place] coronary artery without angina pectoris November 25, [...] 1:52 pm Atherosclerotic heart diseas e of [place] coronary artery without angina pectoris December 09, [...] Date sob November 19, 2024 10:47 pm [facility] ER FU November 25, 2024 11:01 am dyspnea on exertion November 25, 2024 12:34 pm 2 WK FU December 09, 2024 1:52 pm EORDER December 09, 2024 3:24 pm sob December 21, 2024 3:35p m Increased Dyspnea like before stent. L .L. December 23, 2024 1:32pm [facility] ER FU December 30, 2024 11:1 0am fall December 31, 2024 2:25 pm Reason for Visit Admit Date Atherosclerotic heart diseas e of [place] coronary artery without angina pectoris November 25, [...] 1:52 pm Atherosclerotic heart diseas e of [place] coronary artery without angina pectoris December 09, [...] Date sob November 19, 2024 10:47 pm [facility] ER FU November 25, 2024 11:01 am dyspnea on exertion November 25, 2024 12:34 pm 2 WK FU December 09, 2024 1:52 pm EORDER December 09, 2024 3:24 pm sob December 21, 2024 3:35p m Increased Dyspnea like before stent. L .L. December 23, 2024 1:32pm [facility] ER FU December 30, 2024 11:1 0am fall December 31, 2024 2:25 pm DYSPNEA ON EXERTION January 02, 2025 1:46 pm [facility] ER FU January 06, 2025 1:55 pm Chief Complaint Admit Date sob November 19, 2024 10:47 pm [facility] ER FU November 25, 2024 11:01 am dyspnea on exertion November 25, 2024 12:34 pm 2 WK FU December 09, 2024 1:52 pm EORDER December 09, 2024 3:24 pm sob December 21, 2024 3:35p m Increased Dyspnea like before stent. L .L. 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 November 25, [...] 1:52 pm Atherosclerotic heart diseas e of [place] coronary artery without angina pectoris December 09, [...] Shortness of breath at rest December 30, 11:10am CKD (chronic kidney disease) stage 3, [...] 1:55 pm Atherosclerotic heart diseas e of [place] coronary artery without angina pectoris January 06, [...] (obstructive sleep apnea) January 07, 2025 3:19am Chief Complaint Admit Date sob November 19, 2024 10:47 pm [facility] ER FU November 25, 2024 11:01 am dyspnea on exertion November 25, 2024 12:34 pm 2 WK FU December 09, 2024 1:52 pm EORDER December 09, 2024 3:24 pm sob December 21, 2024 3:35p m Increased Dyspnea like before stent. L .L. December 23, 2024 1:32pm [facility] ER FU December 30, 2024 11:1 0am fall December 31, 2024 2:25 pm DYSPNEA ON EXERTION January 02, 2025 1:46 pm [facility] ER FU January 06, 2025 1:55 pm GENERALIZED WEAKNESS, MULTIPLE FALLS Dec 3:19am FREQUENT FALLS, GENERALIZED WEAKNESS Dec 3:22am Reason for Visit Admit Date Atherosclerotic heart diseas e of [place] coronary artery without angina pectoris November 25, [...] 1:52 pm Atherosclerotic heart diseas e of [place] coronary artery without angina pectoris December 09, [...] 0am Shortness of breath at rest December 30 11:10am CKD (chronic kidney disease) stage 3, GF R 30-59 ml/min December 30, 2024 11:10am Obesity December 30, 2024 11:1 0am Frequent falls January 06, 2025 1:55 pm Parkinson's disease January 06, 2025 1:55 pm Pneumonia January 06, 2025 1:55 pm Polyneuropathy January 06, 2025 1:55 pm Atherosclerotic heart diseas e of [place] coronary artery without angina pectoris January 06, 2025 1:55pm 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 disease January 06, 2025 1:55pm Essential (primary) hypertension January 062024 1:55pm Facial contusion January 06, 2025 1:55 pm Fall January 06, 2025 1:55 pm Diabetes mellitus type 2 in obese December 182024 3:22am Generalized weakness January 07, 2025 3:2 2am Hypothyroidism January 07, 2025 3:22 am Multiple falls January 07, 2025 3:22 am Parkinson's disease January 07, 2025 3:22 am Urinary tract infection January 07, 2025 3:22am CKD (chronic kidney disease) stage 3, GF R 30-59 ml/min January 07, 2025 3:22am Essential (primary) hypertension January 072024 3:22am Mild cognitive impairment January 07 3:22am DANYELL (obstructive sleep apnea) January 07, 2025 3:22am Facial contusion January 07, 2025 3:22 am Chief Complaint Admit Date sob November 19, 2024 10:47 pm [facility] ER FU November 25, 2024 11:01 am dyspnea on exertion November 25, 2024 12:34 pm 2 WK FU December 09, 2024 1:52 pm EORDER December 09, 2024 3:24 pm sob December 21, 2024 3:35p m Increased Dyspnea like before stent. L .L. 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 November 25, [...] 1:52 pm Atherosclerotic heart diseas e of [place] coronary artery without angina pectoris December 09, [...] 11:10am Obesity December 30, 2024 11:1 0am Frequent falls January 06, 2025 1:55 pm Parkinson's disease January 06, 2025 1:55 pm Pneumonia January 06, 2025 1:55 pm Polyneuropathy January 06, 2025 1:55 pm Atherosclerotic heart diseas e of [place] coronary artery without angina pectoris January 06, 2025 1:55pm 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 disease January 06, 2025 1:55pm Essential (primary) hypertension January 062024 1:55pm Facial contusion January 06, 2025 1:55 pm Fall January 06, 2025 1:55 pm Diabetes mellitus type 2 in obese December 182024 3:22am Generalized weakness January 07, 2025 3:2 2am Hypothyroidism January 07, 2025 3:22 am Multiple falls January 07, 2025 3:22 am Parkinson's disease January 07, 2025 3:22 am Urinary tract infection January 07, 2025 3:22am CKD (chronic kidney disease) stage 3, GF R 30-59 ml/min January 07, 2025 3:22am Essential (primary) hypertension January 072024 3:22am Mild cognitive impairment January 07 3:22am DANYELL (obstructive sleep apnea) January 07, 2025 3:22am Facial contusion January 07, 2025 3:22 am Essential (primary) hypertension January 092024 3:30pm HLD (hyperlipidemia) January 09, 2025 3:3 0pm History of coronary artery stent placeme nt January 09, 2025 3:30pm Shortness of breath January 09, 2025 3:30 pm Chief Complaint Admit Date sob November 19, 2024 10:47 pm [facility] ER FU November 25, 2024 11:01 am dyspnea on exertion November 25, 2024 12:34 pm 2 WK FU December 09, 2024 1:52 pm EORDER December 09, 2024 3:24 pm sob December 21, 2024 3:35p m Increased Dyspnea like before stent. L .L. December 23, 2024 1:32pm [facility] ER FU December 30, 2024 11:1 0am fall December 31, 2024 2:25 pm DYSPNEA ON EXERTION January 02, 2025 1:46 pm [facility] ER FU January 06, 2025 1:55 pm GENERALIZED WEAKNESS, MULTIPLE FALLS Dec 3:19am [place], GENERALIZED WEAKNESS Dec 3:22am [place], GENERALIZED WEAKNESS Dec 11:20am 6 M FU January 09, 2025 3:30 pm GAIT, ADLS. RX HERE. January 14, 2025 11: 28am 5 MO FU January 14, 2025 1:43 pm Reason for Visit Admit Date Atherosclerotic heart diseas e of [place] coronary artery without angina pectoris November 25, 2024 11:01am CKD (chronic kidney disease) stage 3, GF R 30-59 ml/min November 25, 2024 11:01am Diabetes mellitus type 2, insulin depend ent November 25, 2024 11:01am Essential (primary) hypertension November 11:01am Generalized weakness November 25, 2024 11:0 1am Pneumonia December 09, 2024 1:52 pm Atherosclerotic heart diseas e of [place] coronary artery without angina pectoris December 09, 2024 1:52pm HLD (hyperlipidemia) December 09, 2024 1:5 2pm CKD (chronic kidney disease) stage 3, GF R 30-59 ml/min December 09, 2024 1:52pm Diabetes mellitus type 2 in obese November 182024 1:52pm Essential (primary) hypertension December 092024 1:52pm Hypothyroidism December 09, 2024 1:52 pm DANYELL (obstructive sleep apnea) December 09, 2024 1:52pm Parkinson's disease December 09, 2024 1:52 pm HLD (hyperlipidemia) December 23, 2024 1:32 pm Shortness of breath December 23, 2024 1:32p m Essential (primary) hypertension December 1:32pm History of coronary artery stent placeme nt December 23, 2024 1:32pm Pneumonia December 30, 2024 11:1 0am Shortness of breath at rest December 30, 2 025 11:10am Obesity December 30, 2024 11:1 0am CKD (chronic kidney disease) stage 3, GF R 30-59 ml/min December 30, 2024 11:10am Diabetes mellitus type 2 in obese December 172024 11:10am Frequent falls January 06, 2025 1:55 pm Pneumonia January 06, 2025 1:55 pm Polyneuropathy January 06, 2025 1:55 pm Atherosclerotic heart diseas e of [place] coronary artery without angina pectoris January 06, 2025 1:55pm 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 disease January 06, 2025 1:55pm Essential (primary) hypertension January 062024 1:55pm Facial contusion January 06, 2025 1:55 pm Fall January 06, 2025 1:55 pm Parkinson's disease January 06, 2025 1:55 pm CKD (chronic kidney disease) stage 3, GF R 30-59 ml/min January 07, 2025 3:22am Diabetes mellitus type 2 in obese December 182024 3:22am Essential (primary) hypertension January 072024 3:22am Facial contusion January 07, 2025 3:22 am Generalized weakness January 07, 2025 3:2 2am Hypothyroidism January 07, 2025 3:22 am Mild cognitive impairment January 07 3:22am Multiple falls January 07, 2025 3:22 am DANYELL (obstructive sleep apnea) January 07, 2025 3:22am Parkinson's disease January 07, 2025 3:22 am Urinary tract infection January 07, 2025 3:22am HLD (hyperlipidemia) January 09, 2025 3:3 0pm Shortness of breath January 09, 2025 3:30 pm Essential (primary) hypertension January 092024 3:30pm History of coronary artery stent placeme nt January 09, 2025 3:30pm Family History No Family History Records Found [...] Will Yes July 13 11:49am Power of Collection Officer Yes July 13, 2021 11:49am Advance Directive Response Recorded Date/ Time Advance Directives No October 28 8:35am Living Will No October 28, 2021 8 :35am Power of Collection Officer No October 28, 2021 8:35am Advance Directive Response Recorded Date/ Time Advance Directives Yes October 29 7:13am Living Will Yes October 29, 2021 7 :13am Power of Collection Officer Yes October 29, 2021 7:13am Advance Directive Response Recorded Date/ Time Advance Directives on File Yes October 172021 7:13am Name of Medical Power of Collection Officer Iris astorga- October 29, 2021 7:13am Name of Medical Power of Collection Officer TERRENCE ASTORGA February 01, 2022 1:26pm Advance Directives Yes October 29 7:13am Living Will Yes February 01 1:26pm Power of Collection Officer Yes February 01 022 1:26pm Advance Directive Response Recorded Date/ Time Name of Medical Power of Collection Officer TERRENCE ASTORGA February 01, 2022 1:26pm Advance Directives Yes October 29 7:13am Living Will Yes February 01 2 1:26pm Power of Collection Officer Yes February 01 022 1:26pm Advance Directive Response Recorded Date/ Time Advance Directives Yes October 29 7:13am Living Will Yes February 01 1:26pm Power of Collection Officer Yes February 01 1:26pm Documents on File Type Date Recorded 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 Yes December 20, 2023 2:43pm Do you have a Healthcare Power of Collection Officer? Yes November 19, 2024 10:51pm Advance Directives Yes December 19 2:43pm Advance Directive Response Recorded Date/ Time Living Will Yes December 20, 2023 2 :43pm Do you have a Healthcare Pow er of Collection Officer? Yes December 20, 2023 2:43pm Do you have a Healthcare Pow er of Collection Officer? Yes November 19, 2024 10:51pm Do you have a Healthcare Pow er of Collection Officer? Yes December 21, 2024 4:06pm Name of Medical Power of Collection Officer Iris briceno December 21, 2024 4:06pm Advance Directives Yes December 19 2:43pm Advance Directive Response Recorded Date/ Time Living Will Yes December 20, 2023 2 :43pm Do you have a Healthcare Pow er of Collection Officer? Yes December 20, 2023 2:43pm Do you have a Healthcare Pow er of Collection Officer? Yes December 31, 2024 2:33pm Do you have a Healthcare Pow er of Collection Officer? Yes November 19, 2024 10:51pm Do you have a Healthcare Pow er of Collection Officer? Yes December 21, 2024 4:06pm Name of Medical Power of Collection Officer Iris briceno December 21, 2024 4:06pm Advance Directives Yes December 19 2:43pm Advance Directive Response Recorded Date/ Time Living Will Yes December 20, 2023 2 :43pm Do you have a Healthcare Pow er of Collection Officer? Yes December 20, 2023 2:43pm Do you have a Healthcare Pow er of Collection Officer? Yes December 31, 2024 2:33pm Do you have a Healthcare Pow er of Collection Officer? Yes January 07, 2025 1:05am Do you have a Healthcare Pow er of Collection Officer? Yes November 19, 2024 10:51pm Do you have a Healthcare Pow er of Collection Officer? Yes December 21, 2024 4:06pm Name of Medical Power of Collection Officer Iris briceno December 21, 2024 4:06pm Advance Directives Yes December 19 2:43pm Advance Directive Response Recorded Date/ Time Living Will Yes December 20, 2023 2 :43pm Do you have a Healthcare Pow er of Collection Officer? Yes December 20, 2023 2:43pm Do you have a Healthcare Pow er of Collection Officer? Yes December 31, 2024 2:33pm Do you have a Healthcare Pow er of Collection Officer? Yes January 07, 2025 3:48am Name of Medical Power of Collection Officer radha astorga January 07, 2025 3:48am Do you have a Healthcare Pow er of Collection Officer? Yes November 19, 2024 10:51pm Do you have a Healthcare Pow er of Collection Officer? Yes December 21, 2024 4:06pm Name of Medical Power of Collection Officer Iris briceno December 21, 2024 4:06pm Advance [...] Provider, Referri ng Provider Active Lela Sherman AUTOMATIC EDGER, AUTOMATIC EDGER-C Attending Provider Active Team Status: Inactive Member [...] Padgett MD Attending Provider, Referring Provider Active Industrial Relations Director Relationship Specialty Start Date End Date Keron Maciel MD [address] [place] [address] PCP - General Internal Medicine 06/09/21 Industrial Relations Director Relationship Specialty Start Date End Date Keron Maciel MD [address] [place] [address] PCP - General Internal Medicine 06/09/21 Team Status: Inactive Member Role Status Dates Dr. Keron Maciel MD Primary Care Provider, Referri ng Provider Active Bhanu PICKARD, [place] Attending Provider Active Team Status: Inactive Member Role Status Dates Dr. Keron Maciel MD Primary Care Provider Active Dr. Saurabh Porter DO Attending Provider, Emergency Manda nath Active Industrial Relations Director Relationship Specialty Start Date End Date Keron Maciel MD [address] [place] [address] PCP - General Internal Medicine 06/09/21 Industrial Relations Director Relationship Specialty Start Date End Date Keron Maciel MD [address] [place] [address] PCP - General Internal Medicine 06/09/21 Industrial Relations Director Relationship Specialty Start Date End Date Keron Maciel MD [address] [place] [address] PCP - General Internal Medicine 06/09/21 Industrial Relations Director Relationship Specialty Start Date End Date Keron Maciel MD [address] [place] [address] PCP - General Internal Medicine 06/09/21 Team [...] 2024 End: December 23, 2024 Zhen Simons NP, AUTOMATIC EDGER-C Attending Provider Active S tart: December 23, [...] 2024 End: December 31, 2024 Dr. Tevin Schwiger , DO Attending Provider Active Start: December 31, [...] Provider Active Star t: January 07, 2025 Team Status: Inactive Member Role/Relationship Status Dates Dr. Keron Maciel MD Primary Care Provider Active Start: January 02, 2025 End: January 02, 2025 Dr. Keron Maciel MD Attending Provider Active Start: January 02, 2025 End: January 02, 2025 Dr. Keron Maciel MD Referring Provider Active Start: January 02, 2025 End: January 02, 2025 Team Status: Active Member Role/Relationship Status Dates Dr. Keron Maciel MD Primary Care Provider Active Start: January 07, 2025 Dr. Derick Sorenson DO Emergency Provider Active Start: January 07, 2025 Dr. Junior Valverde MD Admit Provider Active Star t: January 07, 2025 Dr. Junior Valverde MD Other Provider Active Star t: January 07, 2025 Dr. Dia Ovalle MD Attending Provider Active Start: January 07, 2025 Team Status: Inactive Member Role/Relationship Status Dates Dr. Keron Maciel MD Primary Care Provider Active Start: January 07, 2025 End: January 08, 2025 Dr. Derick Sorenson DO Emergency Provider Active Start: January 07, 2025 End: January 08, 2025 Dr. Junior Valverde MD Admit Provider Active Star t: January 07, 2025 End: January 08, 2025 Dr. Junior Valverde MD Other Provider Active Star t: January 07, 2025 End: January 08, 2025 Dr. Dia Ovalle MD Attending Provider Active Start: January 07, 2025 End: January 08, 2025 Team Status: Active Member Role/Relationship Status Dates Dr. Keron Maciel MD Primary Care Provider Active Start: January 08, 2025 Dr. Derick Sorenson DO Emergency Provider Active Start: January 08, 2025 Dr. Junior Valverde MD Admit Provider Active Star t: January 08, 2025 Dr. Junior Valverde MD Other Provider Active Star t: January 08, 2025 Dr. Dia Ovalle MD Attending Provider Active Start: January 08, 2025 Dr. Dia Ovalle MD Other Provider Active St art: January 08, 2025 Team Status: Inactive Member Role/Relationship Status Dates Dr. Keron Maciel MD Primary Care Provider Active Start: January 09, 2025 End: January 09, 2025 Dr. Keron Maciel MD Referring Provider Active Start: January 09, 2025 End: January 09, 2025 Zhen Simons AUTOMATIC EDGER, AUTOMATIC EDGER-C Attending Provider Active S tart: January 09, 2025 End: January 09, 2025 Team Status: Active Member Role/Relationship Status Dates Dr. Keron Maciel MD Primary Care Provider Active Start: January 14, 2025 Dr. Dia Ovalle MD Attending Provider Active Start: January 14, 2025 Team Status: Inactive Member Role/Relationship Status Dates Dr. Keron Maciel MD Primary Care Provider Active Start: January 14, 2025 End: January 14, 2025 Dr. Keron Maciel MD Referring Provider Active Start: January 14, 2025 End: January 14, 2025 Dr. Rich Padgett MD Attending Provider Active Start: January 14, 2025 End: January 14, 2025 Source Comments (unrecognize d section and content) In the event this informatio n is protected by the Federal Confidentiality of Alcohol and Drug Abuse Patient Records regulations: The Federal rules restrict any use of the information to criminally investigate or prosecute any alcohol or drug abuse patient.[facility] the event this information is protected by the Federal Confidentiality of Alcohol and Drug Abuse Patient Records regulations: The Federal rules restrict any use of the information to criminally investigate or prosecute any alcohol or drug abuse patient.[facility] the event this information is protected by the Federal Confidentiality of Alcohol and Drug Abuse Patient Records regulations: The Federal rules restrict any use of the information to criminally investigate or prosecute any alcohol or drug abuse patient.[facility] the event this information is protected by the Federal Confidentiality of Alcohol and Drug Abuse Patient Records regulations: The Federal rules restrict any use of the information to criminally investigate or prosecute any alcohol or drug abuse patient.[facility] the event this information is protected by the Federal Confidentiality of Alcohol and Drug Abuse Patient Records regulations: The Federal rules restrict any use of the information to criminally investigate or prosecute any alcohol or drug abuse patient.[facility] the event this information is protected by the Federal Confidentiality of Alcohol and Drug Abuse Patient Records regulations: The Federal rules restrict any use of the information to criminally investigate or prosecute any alcohol or drug abuse patient.[facility] the event this information is protected by the Federal Confidentiality of Alcohol and Drug Abuse Patient Records regulations: The Federal rules restrict any use of the information to criminally investigate or prosecute any alcohol or drug abuse patient.[facility] Reason for Visit (unrecogniz ed section and content) Reason Comments Established Patient Diabetic Foot Care Reason Comments Established Patient Follow Up Diabetic Foot Check Reason Comments Established Patient Follow Up Diabetic Foot Care (unrecognized sect ion and content) No Status Records FoundNo Status Records Found INFORMATION SOURCE (unrecogn ized section and content) DATE CREATED AUTHOR 12/15/2024 [facility] DATE CREATED AUTHOR AUTHOR'S ANABEL RAMIREZ 01/28/2025 [facility] FOR RECORDS PERTAINING TO PATIENTS WHO [...] BE BASED ON THE PRIMARY CLINICAL RECORDS. [facility]. provides no warranty or guarantee of the accuracy or completeness of information in this document.
--- NOTE | 2025-01-30 07:16 | STRESSREP_ITS ---
Stress Test Report Pharmacologic myocardial perfusion stress test. 89-year-old man with a history of dyspnea and chest pain Resting EKG demonstrates sinus rhythm with a right bundle branch block with a rate of 78 bpm. Resting blood pressure is 140/86 mmHg. 0.4 mg of regadenoson was infused per usual protocol followed by rapid intravenous saline flush inject ion. Continuous EKG monitoring was performed. The maximum heart rate was 86 bpm which was 64% of max impacted heart rate the maximum workload was 1 metabolic equivalent. At rest there were no ST or T wave changes noted to suggest ischemia and at peak infusion nonspecific ST changes were noted which did not meet the criteria for ischemia. No clinical angina is noted. The final blood pressure was 124/78 mmHg. Myocardial perfusion protocol. 15 mCi of technetium 99m sestamibi was injected at rest. 0.4 mg of regadenoson was infused per usual protocol. At peak infusion 45 mCi of technetium 99m sestamibi was injected stress images were obtained stress and rest images were reconstructed and compared in the short axis vertical long and horizontal long axis. Gated images were also obtained. Perfusion SPECT analysis: Review of the stress images demonstrate normal uptake of tracer noted in all areas of the myocardium. The resting images similar demonstrated normal uptake of tracer noted in all areas of the myocardium. No areas of reversibility are noted to suggest ischemia and no previous infarct is noted. Gated SPECT analysis: The gated ejection fraction is 54%. Conclusion: Normal pharmacologic myocardial perfusion stress test. Preserved ejection fraction.
== END | disposition home or self-care (01) ==
LOC: CVS 06:15
PROVIDERS: PCP Internal Medicine; Referring Provider Nurse Practitioner Family; Visit Provider Nurse Practitioner Family
DX: R06.02 Shortness of breath (principal); Z95.5 Presence of coronary angioplasty implant and graft; E78.5 Hyperlipidemia, unspecified; I10 Essential (primary) hypertension
CPT/HCPCS: 78452; 93017; A9500; A4216; J2785

== ENCOUNTER → 2025-02-21 | Outpatient (CLI) | payer MEDICARE, SELFPAY ==
--- NOTE | 2025-02-21 15:45 | MRI_ITS ---
PROCEDURE: SPINE LUMBAR (ROUTINE) 02/21/2025 REASON FOR EXAM: DISC DEGENERATION TECHNIQUE: Procedure Code: MRISPL Modality: MR Procedure: SPINE LUMBAR (ROUTINE) COMPARISON: Prior MRI of the lumbar spine 12/27/2018 FINDINGS: Vertebrae: 5 lumbar-type vertebral bodies are present. The patient is status post fusion from L2 through L5. No fracture. Alignment: Scoliosis concave to the right apex at L2-3. Straightening of the lumbar spine and loss of normal lordosis. No subluxation. Conus Medullaris: Ends normally at L1-L2. The distal spinal cord appears unremarkable. T12-L1: Mild degenerative disc disease. Mild right foraminal encroachment due to disc bulge. No central stenosis. L1-2: Diffuse disc bulge. Facet arthropathy ligamentum flavum hypertrophy. Bilateral foraminal encroachment more pronounced on the left stable since previous exam. L2-3: Status post laminectomy. No recurrent disc. No foraminal or central stenosis. L3-4: Status post laminectomy. No central or foraminal stenosis. No change since previous exam. L4-5: Status post laminectomy. No central or foraminal stenosis. No change since previous exam. L5-S1: Degenerative disc desiccation. Mild bilateral foraminal encroachment stable since previous exam. Sacrum: Visible sacrum appears stable No paraspinal soft tissue abnormality seen. 3 cm abdominal aortic aneurysm.. MRI/Spine Lumbar (Routine) IMPRESSION: Status post lumbar fusion from L2 through L5 with laminectomy changes. No recu rrent disc protrusion. Degenerative disc disease at L1-2 and L5-S1 similar to previous exams unchanged with bilateral foraminal stenosis at L5-S1 and left foraminal stenosis at L1-2. 3.3 cm infrarenal abdominal aortic aneurysm. Reading Location: [id number]
== END | disposition home or self-care (01) ==
LOC: MRI 15:29
PROVIDERS: PCP Internal Medicine; Referring Provider Anesthesiology Pain Medicine; Visit Provider Anesthesiology Pain Medicine
DX: M51.372 Other intervertebral disc degeneration, lumbosacral region with discogenic back pain and lower extremity pain (principal)
CPT/HCPCS: 72148

== ENCOUNTER 2025-02-26 14:00 | Outpatient (RCR) | payer MEDICARE, SELFPAY ==
--- NOTE | 2025-01-14 12:21 | HP.PTEVAL_ITS ---
Patient's Visit Information Visit Information Visit Information: DARREN REDDY is a 89 year old M referred to Physical Therapy by Dr. Dia Ovalle MD with a diagnosis of Impaired mobility. Date of Evaluation: 01/14/25 Physical Therapist: Tevin Tovar, JULIO CESART, OCS, CSCS Visit Plan Frequency: 2x /Week Duration: 4-6 Weeks Plan: 2x/week for 4-6 weeks(has OT eval also): IE HEP: 100% use of walker. Balance safety education. please treat with progression of ex for core and LE and postural strength adn mobility. start with mat based core and hip, progress to standing and funcitonal balance ex to tolerance, include HS stretching, give pics for HEP as he has the start of dementia. Subjective Subjective: Went to hospital after two fall in one night adn unable to get up. Had fallen previously, that was January 11. could not get up. They did not know why he was falling but did not have AD. Lots of tests in hospital but no reason for weakness and he does not know why he is falling. Uses walker for a couple days now and no falls with that. did not realize he needed it prior. Had Parkinsons disease. No regular ex. Lives with of 64 years. One story house with 5 steps and railing to enter. In and out of bed I. Chairs I. bathroom I, shower I in walk in shower, dresses self. Does not do much other than puzzles at home. No hobbies Pain LBP: Pain Intensity (Out of 10): 0 Pain Intensity Range: 7 Comment: normal for him, intermittent Objective Objective: L foot brace for 2 months from [facility] for weakness, romberg 30 eo adn 30 ec, foam not appropriate. 96 spO2 sat and 63 HR after TUG Walks with walkeer back to [facility] room 250 feet mod I, very tired, mild SOB and ready to sit. Sit to stand I, stand to sit I, both require UE. sit to supine requires min A for legs(has rails at home), supine to sit I. FGA without walker today and unsafe, needs walker. stands I without UE, fatigues quickly. L leg weeaker than R and uses ankle brace on L and hip flexion is 3 vs 4- on R. knee ext and flexion 3+ B. HS mod tight B at -40 90/90 test. coordination to reciprocal toee and heel tap is at deficit. sensation LE to gross light touch WNL B. Balance/Special Test Scores Functional Gait Assessment Score: 13 % Disability: 56.6700 Lower Extremity Functional Score: 17 TUG Test Time Seconds: 22 30 Second Chair Rise Test Seconds: 10 Goals Goal 1:: 12 30 SSTS adn < 20 on TUG to show improved mobility. Goal Time Frame: 4-6 Weeks Goal 2:: I appropriate HEP to limit future problems with sedentarism Goal Time Frame: 4-6 Weeks Goal 3:: Transfer floor with UE with Min A. Goal Time Frame: 4-6 Weeks Goal 4:: LEFS score 40 Goal Time Frame: 4-6 Weeks Goal 5:: Pt feel 50% better in overall mobility at home Goal Time Frame: 4-6 Weeks Rehabilitation Potential Physical Therapy Diagnosis: sedentarism has made him weak and poor mobility, balance limiting funciton at home. Rehabilitation Potential: Fair Anticipated Interventions Patient/Client Instruction: Educate patient on: Condition For the Purpose of:: To decrease pain, To increase ROM, To improve muscle performance and motor function, To increase tolerance to activity/condition/position, To improve ability of physical actions for home/community/work/leisure and To improve gait and locomotor functions Therapeutic Exercise to Include: Strength training, Postural training and Fl exibilty training For the Purpose of:: To decrease pain, To increase ROM and To improve nutrient delivery to tissue Text: Thank you for the opportunity to evaluate your patient. For Medicare and Medicare HMO plans, please review the plan of care and approve it. It will need to be FAXED BACK to us at [phone] for Medicare purposes. For Medicare only, by signing this I certify the plan of care. Please let me know if there are questions or concerns regarding this plan of care. Physician Signature:___ Date:
--- NOTE | 2025-01-14 13:30 | HP.OTEVAL ---
Patient's Visit Information Visit Information Visit Information: DARREN REDDY is a 89 year old M, referred to Occupational Therapy by Dr. Dia Ovalle MD, with a diagnosis of impaired gait and mobility, decreased independence with ADL's. Date of Evaluation: 01/14/25 Occupational Therapist: Danita Azul Subjective Subjective: Patient reports he's coming to therapy d/t frequent falling. He's had multiple falls in the bathroom. Patient lives with . Patient has 5 PK with HR. Patient lives in a ranch style home with a basement. His bedroom and bathroom are on the main floor. Patient uses a regular toilet and bed. Patient uses grab bars for walk-in shower and a shower bench. Patient uses a FWW regularly when outside the house. He uses a rollator when inside the house. ADLs Comments: Patient reports he's mostly independent with ADL's. He wears a left AFO. His helps don and doff L AFO and socks and shoes. Reports no appetite - been going on for months sleeping good overall leisure: watch TV, word puzzles Pt's is doing the yard work, daily chores around the house, cooking, and cleaning Patient and his both drive. Retired from [employer] in 2000 from 35 years Patient reports he has 6 children, 18 grandchildren, and 5 great grandchildren Pain Lower back: Current Pain Intensity: 6 ROM Shoulder: L shoulder ~120 deg abduction, R WFL Elbow: WFL Forearm: WFL Wrist: WFL MP: WFL PIP: WFL ROM Comments: R handed able to make full fist Strength [employer] Coordinator: R 33, L 32 Lateral Pinch: R 10, L 10 Tripod Pinch: R 9, L 9 Tip-to-Tip Pinch: R 8, L 6 Strength Comments: unable to complete FIT 2 testing on upper body, unable to withstand resistance, and reported pain with attempt Edema Other: reports bilateral lower leg swelling, doesn't wear compression L Lymphedema (Circumferential Measure) Ankle: R10.5 inch Largest calf: R14 inch Below knee: L 15 inch Lower Exremity Comments: decr measurements on L LE d/t AFO Sensation Sensation Comments: Patient reports right UE "goes to sleep quite often" Cognitive Skills Follows Directions: Yes Oriented to (Check all that apply): Place Short Term Memory Impaired: No Quick DASH-Disab of Arm,Shoulder& Hand Quick DASH Score: 43.1800 Goals Goal:: Patient will demonstrate increased shoulder strength for completion of ADL's with ability to flex bilateral shoulders actively greater than 140 degrees. Goal:: Patient will improve bilateral welder strength by 2# to improve fxnal use of hands for ADL's (R 35#, L 34#). Goal:: Patient will be indep with LB edema mgmt and reduction of circumferential edema by 1 inch at each respective measured area by d/c. Goal:: Patient will participate in active upper body exercise for 5 minutes without rest break to improve cardiovascular endurance for ADL function. Goal:: Patient will be educated and independent on at least 3 fall prevention strategies at home. Rehabilitation General Assessment: Patient presents for OT evaluation after having more frequent falls at home and in the community. He reports in general, his balance and strength are decreased and is mostly sedentary during the day. He spends most of his days sitting watching TV with LE's in dependent position. He uses a FWW or rollator for mobility and completes basic transfers with modified independence. Patient is limited by his low back pain which worsens with activity. He reports h/o lumbar spine fusion sx, MRI, injections, etc to treat LB pain, however, it remains present and consistent. Patient would benefit from skilled OT services 2x/week for 4 weeks to improve cardiovascular endurance, UB strength, fall prevention education, and edema mgmt for LB. Patient agreeable to POC. Rehabilitation Potential: Fair Anticipated Interventions Anticipated Interventions: A/AAROM/PROM, Strengthening, Edema Control and Home Program Visit Plan Frequency: 2x /Week Duration: 4 Weeks General Plan: 2x/week for 4 weeks to improve general strengthening, edema mgmt in LB (ed on elevating feet while sitting and watching TV), fall prevention (ed on getting non slip bath mat or strips to place inside shower and right outside shower) TEXT: Thank you for the opportunity to evaluate your patient. For Medicare and Medicare HMO plans, please review the plan of care and approve it. It will need to be FAXED BACK to us at [phone] for Medicare purposes. Please let me know if there are questions or concerns regarding this plan of care. Physician Signature: Date:
--- NOTE | 2025-02-26 14:22 | HP.PTDCSUM ---
Discharge Summary D/C summary: It has been my pleasure to treat DARREN REDDY referred by Dr. Dia Ovalle MD, with the diagnosis of Impaired mobility for a total of 10 visit(s). Discharge Date: 02/26/25 Please see the following information for a summary of their discharge status. Subjective Subjective: No falls , using wh walker all the time. Doing HEP and daily. L leg does not feel like it works how it should. Still feels weak on that side but it is getting stronger. No giving out. Steps at home 5 taking time but no problem. No problem driving. Activities at home are pretty normal , activities same as prior to hospital. Feels like can continue on his own at home. Pain LBP: Pain Intensity (Out of 10): 6 Overall Improvement % Improvement: 75 Objective Objective/Function: Walks into PT with wh walker slightly hunched but mod I. Walks without walkeer today but trendelenberg gait L and needing CGA. sit to stand with UE I. Improved TUG and maintianing 30 SSTS. Pt feeling good and does nto want more aggressive exercise adn ready to be on his own at home. Goals Goal 1:: 12 30 SSTS adn < 20 on TUG to show improved mobility. Goal Progress: Goal Met Goal 2:: I appropriate HEP to limit future problems with sedentarism Goal Progress: Goal Met Goal 3:: Transfer floor with UE with Min A. Goal Progress: Goal Met Goal 4:: LEFS score 40 Goal Progress: Progressing Goal 5:: Pt feel 50% better in overall mobility at home Goal Progress: 75%, met Plan Plan: d/c to HEP D/C Information Discharge Comments: Will continue via HEP d/c sentence: If there are questions or concerns regarding this patient's physical therapy, please feel free to call me at [phone]. Thank you for the referral of this patient. Sincerely, Tevin Tovar, DPT, OCS, CSCS Balance/Gait/Functional tests Balance/Special Test Scores Functional Gait Assessment Score: 13 % Disability: 56.6700 Lower Extremity Functional Score: 28 TUG Test Time Seconds: 14 Tug Test: <20 sec.=mostly independent 30 Second Chair Rise Test Seconds: 14 Improvement % Improvement: 75
== END 2025-02-26 19:00 | disposition home or self-care (01) ==
LOC: PT 14:00
PROVIDERS: PCP Internal Medicine; Visit Provider Student in an Organized Health Care Education/Training Program
DX: R26.89 Other abnormalities of gait and mobility (principal)
CPT/HCPCS: 97110; 97163; 97164; 97165; 97530

== ENCOUNTER → 2025-05-08 | Outpatient (CLI) | payer MEDICARE, SELFPAY ==
[2025-05-08 15:39] LABS: Mucous, Urine 0 SEEN /hpf (<or=2+)
[2025-05-08 17:58] LABS: Color, Urine Yellow (Yellow); Glucose, Dipstick Normal (Normal); Ketone-Dipstick Negative (Negative); Leukocyte Esterase-Dipstick 100 /ul (Negative); Nitrite-Dipstick Negative (Negative); Occult Blood-Urine Negative /ul (Negative); Protein-Dipstick Negative (Negative); Specific Gravity, Urine 1.015 (1.002-1.030); Urine Bilirubin Dipstick Negative (Negative)
[2025-05-08 18:34] LABS: Red Blood Cells-Urine 0-5 SEEN /hpf (0-5); Squamous Epithelial Cells - UA 0-5 SEEN /hpf (0-5)
== END | disposition home or self-care (01) ==
LOC: MTLAB 15:26
PROVIDERS: PCP Internal Medicine; Referring Provider Internal Medicine; Visit Provider Internal Medicine
DX: N39.0 Urinary tract infection, site not specified (principal)
CPT/HCPCS: 81001; 87077; 87086; 87088; 87186

== ENCOUNTER → 2025-05-09 | Outpatient (CLI) | payer MEDICARE, SELFPAY ==
[2025-05-09 12:29] LABS: Hematocrit 38.2 % (40-54); Hemoglobin 12.7 g/dL (13.0-16.5); Immature Granulocytes Count 0.050 X10^3/uL (0.0-0.0); Mean Corp Hgb Conc 33.2 g/dL (32-36); Mean Corpuscular Volume 98.2 fL (80-94); Mean Platelet Vol. 8.7 fl (6.2-12.0); NRBC Flagged by Analyzer 0 % (0-5); Platelet Count 185 K/mm3 (150-450); RBC Distribution Width CV 14.5 % (11.6-14.6); RBC Distribution Width SD 51.9 fl (35.1-43.9); Red Blood Count 3.89 M/mm3 (4.6-6.2); White Blood Count 5.6 K/mm3 (4.4-11.0)
[2025-05-09 13:02] LABS: Cholesterol 151 mg/dL (<=200); Low Density Lipoprotein Calc. 81 mg/dL; Pro- Brain NATRIURETIC PEPTIDE 704 pg/mL (<=1800); Triglycerides 190 mg/dL; Very Low Density Lipoprotein 38 mg/dL (5-40); cholesterol:hdl ratio screen 3.98
[2025-05-09 13:27] LABS: AST(SGOT) 17 U/L (<=37); Albumin, Serum 4.1 g/dL (3.4-4.8); Alkaline Phosphatase 42 U/L (40-129); Anion Gap 12 (5-15); BUN 23 mg/dL (4-19); BUN/Creat Ratio 14.1 RATIO (10-20); Calcium,Total 9.7 mg/dL (7.6-11.0); Carbon Dioxide 26.0 mmol/L (21.0-32.0); Chloride 102 mmol/L (98-108); Globulin 2.4 g/dL (2.2-4.2); Glucose 134 mg/dL (70-99); Potassium 4.1 mmol/L (3.3-5.1)
[2025-05-09 13:39] LABS: Alanine Aminotransfer ALT/SGPT < 5 U/L (<=46)
== END | disposition home or self-care (01) ==
LOC: LAB 12:05
PROVIDERS: PCP Internal Medicine; Referring Provider Student in an Organized Health Care Education/Training Program; Visit Provider Student in an Organized Health Care Education/Training Program
DX: I10 Essential (primary) hypertension (principal); I25.10 Atherosclerotic heart disease of native coronary artery without angina pectoris; R06.02 Shortness of breath
CPT/HCPCS: 36415; 80053; 80061; 83880; 85025

== ENCOUNTER → 2025-05-19 | Outpatient (CLI) | payer MEDICARE, SELFPAY ==
--- NOTE | 2025-05-19 14:35 | RAD_ITS ---
PROCEDURE: CHEST PA AND LATERAL 05/19/2025 REASON FOR EXAM: COUGH TECHNIQUE: Procedure Code: RADCXR Modality: DX Procedure: CHEST PA AND LATERAL COMPARISON: Prior study dated December 21, 2024. FINDINGS: Hardware: None Heart: Prior CABG. Mild cardiomegaly. Mediastinum: The mediastinal contour is unremarkable. Lungs: Stable pleural-parenchymal changes at the left lung base with evidence of prior rib fractures. Old right-sided rib fractures as well. Bones: Degenerative changes are identified within the thoracic spine. Moderate-sized hiatal hernia. RAD/Chest PA and Lateral IMPRESSION: Stable pleural-parenchymal changes at the left lung base. Bilateral healed rib fractures. Moderate-sized hiatal hernia. Reading Location: [place] [id number]
== END | disposition home or self-care (01) ==
LOC: MTRAD 14:35
PROVIDERS: PCP Internal Medicine; Referring Provider Physician Assistant; Visit Provider Physician Assistant
DX: R05.9 Cough, unspecified (principal)
CPT/HCPCS: 71046